=== PATIENT | male | born 1990 | race Caucasian/White ===

== ENCOUNTER 2022-08-07 20:03 | Emergency (ER) | payer OTHER, SELFPAY ==
[2022-08-07 18:42] VITALS: BP 143/67; O2SAT 95
[2022-08-07 20:33] VITALS: BP 101/69; PULSE 105; RESP 14; TEMP 37.4; O2SAT 97; BMI 27.7
--- NOTE | 2022-08-07 20:51 | ED.DIZZY1 ---
HPI - Dizziness General Chief Complaint: Extremity Problem, Nontraumatic Stated Complaint: weakness/pain Time Seen by Provider: 08/07/22 20:46 Source: patient Mode of arrival: walk-in Limitations: no limitations History of Present Illness HPI Narrative: history of RA and colchicine. States he is followed by Rheumatology In [place]. 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 States he ran 5K 4 days ago that included obstacle course. Next day whole body and joint burning pain. Feels it is a RA flare but states it is not usually so generalized. He feels weak. Went in to work today but left after a couple of hours. States when he is up and walking he starts to feel lightheaded and dizzy. No fever or nausea. No chest pain complaint admits his joints are not swollen no more than usual but they hurt Related Data Allergies Allergy/AdvReac Type Severity Reaction Status Date / Time No Known Drug Allergies Allergy Verified 08/08/22 21:22 Review of Systems ROS Status of ROS 10 or more systems reviewed and unremarkable except as noted in history and below Constitutional Reports: fatigue and malaise Musculoskeletal Reports: joint pain PFSH PFSH Social History Smoking status: Never smoker Exam Constitutional Vital Signs - 24 hr 08/07/22 20:33 Temperature 99.4 F Pulse Rate [Monitor] 105 H Respiratory Rate 14 Blood Pressure [Left Arm] 101/69 Pulse Oximetry 97 Oxygen Delivery Method Room Air Common normals: no apparent distress, average body habitus and oriented x3 HENMT Common normals: normocephalic, head/scalp atraumatic and hearing grossly normal bilaterally Eye Common normals: EOMs intact bilaterally and conjunctivae normal Respiratory Common normals: normal respiratory effort, no retractions, no use of accessory muscles and clear to auscultation bilaterally Cardio Common normals: no JVD, regular rate, regular rhythm, S1 normal heart sound and S2 normal heart sound GI Common normals: Normal to inspection, nondistended, normoactive bowel sounds present and non-tender Extremity Other: joint swelling of his hands. ulnar deviation of finger. No erythema or warmth of his joints Neuro Common normals: oriented x3, CN's II-XII intact bilaterally, moves all extremities and no focal motor deficits Psych Appearance: grossly normal Course Vital Signs Vital signs: Vital Signs Blood Pressure 143/67 H 08/07/22 18:42 Pulse Oximetry 95 08/07/22 18:42 Temperature 99.4 F 08/07/22 20:33 Pulse Rate 105 H 08/07/22 20:33 Respiratory Rate 14 08/07/22 20:33 Blood Pressure 101/72 08/08/22 00:50 Pulse Oximetry 96 08/08/22 00:40 Oxygen Delivery Method Room Air 08/07/22 20:33 MDM - Dizziness MDM Narrative Medical decision making narrative: patient seen for flare up of RA . Not his typical flare up because multiple joints were involved. His care was continued on paper charting during computer down time Lab Data Labs: Lab Results 08/07/22 08/07/22 Range/Units 21:10 21:25 WBC 6.4 (4.0-11.0) 10^3/uL RBC 4.86 (4.70-6.10) 10^6/uL Hgb 14.1 (14.0-18.0) g/dL Hct 42.9 (42.0-54.0) % MCV 88.3 (80.0-94.0) fL MCH 29.0 (25.9-34.0) pg MCHC 32.9 (29.9-35.2) g/dL RDW 14.9 (11.0-15.0) % Plt Count 265 (150-450) 10^3/uL MPV 10.0 (9.5-13.5) fL Neut % (Auto) 82.5 H (43.0-75.0) % Lymph % (Auto) 8.4 L (20.5-60.0) % [place] % (Auto) 8.3 (1.7-12.0) % Eos % (Auto) 0.3 L (0.9-7.0) % Baso % (Auto) 0.3 (0.2-2.0) % Neut # (Auto) 5.3 (1.4-6.5) 10^3/uL Lymph # (Auto) 0.5 L (1.2-3.8) 10^3/uL [place] # (Auto) 0.5 (0.3-0.8) 10^3/uL Eos # (Auto) 0.0 (0.0-0.7) 10^3/uL Baso # (Auto) 0.0 (0.0-0.1) 10^3/uL Abs Immat Gran (auto) 0.01 (0.00-0.03) 10^3/uL Imm/Tot Granulo (auto) 0.2 (0.0-0.5) % ESR 11 (<=15) mm/hr Sodium 136 (136-145) mmol/L Potassium 3.9 (3.5-5.1) mmol/L Chloride 98 (98-107) mmol/L Carbon Dioxide 27.8 (21.0-32.0) mmol/L Anion Gap 14.1 BUN 11.0 (7.0-18.0) mg/dL Creatinine 1.24 (0.70-1.30) mg/dL Est GFR ( Amer) >60 (>=60) Est GFR (Non-Af Amer) >60 (>=60) BUN/Creatinine Ratio 8.9 Glucose 104 (74-106) mg/dL Lactate 1.5 (0.4-2.0) mmol/L Calcium 9.3 (8.5-10.1) mg/dL Total Bilirubin 0.3 (0.2-1.0) mg/dL AST 45 H (15-37) U/L ALT 43 (16-63) U/L Alkaline Phosphatase 86 (46-116) U/L Myoglobin 24 (16-96) ng/mL Troponin I High Sens <4.0 L (4.0-76.1) pg/mL C-Reactive Protein <0.2 (<=1.0) mg/dL Total Protein 6.9 (6.4-8.2) g/dL Albumin 3.6 (3.4-5.0) g/dL Globulin 3.3 g/dL Albumin/Globulin Ratio 1.1 Urine Color Lt. yellow (YELLOW) Urine Clarity Clear (CLEAR) Urine pH 6.5 (5.0-9.0) Ur Specific [place] 1.010 (1.005-1.025) Urine Protein Negative (NEG/TRACE) mg/dL Urine Glucose (UA) Negative (NEGATIVE) mg/dL Urine Ketones Negative (NEGATIVE) mg/dL Urine Occult Blood Negative (NEGATIVE) Urine Nitrite Negative (NEGATIVE) Urine Bilirubin Negative (NEGATIVE) Urine Urobilinogen 0.2 (0.2-1.0) EU/dL Ur Leukocyte Esterase Negative (NEGATIVE) Discharge Plan Discharge Chief Complaint: Extremity Problem, Nontraumatic Clinical Impression: Arthralgia, Flare of rheumatoid arthritis Patient Disposition: Home, Self-Care Stand Alone Forms: Portal Instructions Referrals: LEYDI ACEVES [Primary Care Provider] - 1 week Discharge Date/Time: 08/08/22 04:00
--- NOTE | 2022-08-07 20:58 | XR_ITS ---
[address] [address] Patient Name: TRU CARDOZA MRN: [id number] date: 1990 Sex: M Assigned Patient Location: ER Current Patient Location: ED.MAIN Accession/Order Number: [id number] Exam Date: 08/07/2022 21:25 Report Date: 08/07/2022 22:05 At the request of: NAWAF RO Procedure: XR chest 1V EXAM: XR chest 1V HISTORY: Weakness COMPARISON: 06/20/2022 TECHNIQUE: Frontal view of the chest. FINDINGS: No focal consolidations or pleural effusions. Cardiomediastinal silhouette is unremarkable. Visualized osseous structures are unremarkable. IMPRESSION: No acute disease. Electronically authenticated by: SETH TABOR Date: 08/07/2022 22:05
--- NOTE | 2022-08-07 20:58 | ECG_ITS ---
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
--- NOTE | 2022-08-07 21:28 | SUR.HOLD ---
Patient has hx of RA. patient is experiencing an entire body flair up. C/O pain, weakness, and dizziness upon ambulation. patient ran a 5k a few days ago and believes that may be what started it. IV and EKG done, blood and urine collected
[2022-08-07 21:32] LABS: Bilirubin Urine NEGATIVE (NEGATIVE); Blood Urine NEGATIVE (NEGATIVE); Clarity Urine CLEAR (CLEAR); Color Urine LT. YELLOW (YELLOW); Glucose Urine UA NEGATIVE (NEGATIVE); Ketones Urine NEGATIVE (NEGATIVE); Leukocyte Esterase Urine NEGATIVE (NEGATIVE); Nitrite Urine NEGATIVE (NEGATIVE); Protein Urine NEGATIVE (NEG/TRACE); Urobilinogen Urine 0.2 EU/dL (0.2-1.0); pH Urine 6.5 (5.0-9.0)
[2022-08-07 21:32] LABS: Basophils Percent Auto 0.3 % (0.2-2.0); Eosinophils Percent Auto 0.3 % (0.9-7.0); Hematocrit 42.9 % (42.0-54.0); Hemoglobin 14.1 g/dL (14.0-18.0); Immature Granulocytes Abs Auto 0.01 10^3/uL (0.00-0.03); Immature Granulocytes Pct Auto 0.2 % (0.0-0.5); Lymphocytes Absolute Auto 0.5 10^3/uL (1.2-3.8); Lymphocytes Percent Auto 8.4 % (20.5-60.0); Mean Corpuscular HGB Conc 32.9 g/dL (29.9-35.2); Mean Corpuscular Volume 88.3 fL (80.0-94.0); Monocytes Absolute Auto 0.5 10^3/uL (0.3-0.8); Monocytes Percent Auto 8.3 % (1.7-12.0); Neutrophils Absolute Auto 5.3 10^3/uL (1.4-6.5); Neutrophils Percent Auto 82.5 % (43.0-75.0); Platelet Count 265 10^3/uL (150-450); Red Blood Count 4.86 10^6/uL (4.70-6.10); Red Cell Distribution Width 14.9 % (11.0-15.0); White Blood Count 6.4 10^3/uL (4.0-11.0)
[2022-08-07 21:40] LABS: Erythrocyte Sedimentation Rate 11 mm/hr (<=15)
[2022-08-07 21:41] LABS: Urine Microscopic Indicated NO
[2022-08-07] MEDS: 0.9 % SODIUM CHLORIDE 1,000 ML 999 ML IV (21:51)
[2022-08-07] MEDS: METHYLPREDNISOLONE SOD SUCC PF 125 MG/2 ML VIAL IVP (21:52)
[2022-08-07 21:59] LABS: Troponin I High Sensitivity <4.0 pg/mL (4.0-76.1)
[2022-08-07 22:00] LABS: Lactate/Lactic Acid 1.5 mmol/L (0.4-2.0)
[2022-08-07 22:05] LABS: Alanine Aminotransferase 43 U/L (16-63); Albumin Globulin Ratio 1.1; Albumin Level 3.6 g/dL (3.4-5.0); Alkaline Phosphatase 86 U/L (46-116); Anion Gap 14.1; Aspartate Amino Transferase 45 U/L (15-37); BUN Creatinine Ratio 8.9; Bilirubin Total 0.3 mg/dL (0.2-1.0); Calcium 9.3 mg/dL (8.5-10.1); Carbon Dioxide 27.8 mmol/L (21.0-32.0); Chloride 98 mmol/L (98-107); Estimated GFR (African America >60 (>=60); Estimated GFR (Non-African Ame >60 (>=60); Globulin 3.3 g/dL; Glucose 104 mg/dL (74-106); Myoglobin 24 ng/mL (16-96); Potassium 3.9 mmol/L (3.5-5.1); Sodium 136 mmol/L (136-145); Total Protein 6.9 g/dL (6.4-8.2)
[2022-08-07 22:07] LABS: C Reactive Protein <0.2 mg/dL (<=1.0)
[2022-08-07] MEDS: FENTANYL CITRATE/PF 100 MCG/2 ML VIAL 50 MCG IV (22:35)
--- NOTE | 2022-08-07 23:17 | PC.NURSE ---
Patient stated the fentenyl has not helped pain but increased headache. notified adela dalton for toradol given
[2022-08-07] MEDS: KETOROLAC TROMETHAMINE 30 MG/ML VIAL IVP (23:40)
[2022-08-08 00:40] VITALS: O2SAT 96
[2022-08-08 00:41] VITALS: BP 114/63
[2022-08-08 00:47] VITALS: BP 118/76
[2022-08-08 00:48] VITALS: BP 102/79
[2022-08-08 00:49] VITALS: BP 102/75
[2022-08-08 00:50] VITALS: BP 101/72
[2022-08-08] MEDS: 0.9 % SODIUM CHLORIDE 1,000 ML 1000 ML IV (01:35)
== END 2022-08-08 04:00 | disposition home or self-care (01) ==
PROVIDERS: Emergency Provider Internal Medicine; PCP Family Medicine
DX: M25.50 Pain in unspecified joint (principal); M06.9 Rheumatoid arthritis, unspecified; Z79.899 Other long term (current) drug therapy
CPT/HCPCS: 36415; 71045; 80053; 81003; 83605; 83874; 84484; 85025; 85652; 86140; 93005; 96374; 96375; 99285; J2930

== ENCOUNTER 2022-08-08 20:41 | Emergency (ER) | payer OTHER, SELFPAY ==
[2022-08-08 21:13] VITALS: BP 132/79; RESP 16; TEMP 37.2; O2SAT 98
--- NOTE | 2022-08-08 23:10 | ED.WEAKNESS1 ---
HPI - Weakness General Chief complaint: Weakness Stated complaint: WEAKNESS Time Seen by Provider: 08/08/22 20:49 Source: patient Mode of arrival: walk-in History of Present Illness HPI Narrative: the patient was just evaluated this morning with the symptoms of generalized body ache. History of rheumatoid arthritis and he presented to us after he has been having generalized body throbbing and just ran a 5K almost 3 days ago he denies any nausea vomiting or any abdominal pain or any joint pain specifically but he mentioned that he was feeling better after he was discharged this morning and when he went home he was playing with his daughter and and apparently started getting dizzy only incidentally the patient denies any other complaints other than that mentioned in the history of present illness Related Data Allergies Allergy/AdvReac Type Severity Reaction Status Date / Time No Known Drug Allergies Allergy Verified 08/08/22 21:22 Review of Systems ROS Status of ROS 10 or more systems reviewed and unremarkable except as noted in history and below PFSH PFS Social History Smoking status: Never smoker Exam Narrative Exam Narrative: Nurses notes and vital signs reviewed and patient is not hypoxic. General: Well-appearing and in no apparent distress. Skin: Warm, dry, no pallor noted. No rash. Head: Normocephalic, atraumatic. Neck: Supple, non-tender. Eye: Pupils are equal, round and EOMI. No scleral icterus. Ears, Nose, Mouth, and Throat: TM are clear, no nasal mucosal hypertrophy. Oral mucosa is moist, no posterior oropharynx erythema, uvula is mid-line Cardiovascular: Regular Rate and Rhythm without murmur, gallop or rub. Respiratory: No accessory muscle use or respiratory distress. Lungs are clear to auscultation, no wheezing, rales or rhonchi Chest Wall: no tenderness Back: No midline thoracic or lumbar vertebral tenderness. No CVA tenderness Musculoskeletal: normal ROM, no calf or popliteal tenderness, no lower extremity edema/swelling patient does have lipomas in his upper and lower extremities mostly at the knee and the elbow level with no redness no hotness no signs of acute infection GI: Abdomen is soft, non-distended. Normal bowel sounds. No masses appreciated. No tenderness to palpation. No rebound, guarding, or rigidity noted. Neurological: A&O x4. No cranial nerve dysfunction observed. No truncal ataxia. Moves all extremities. Sensation intact. Psychiatric: Cooperative and interactive. Normal mood and affect. Constitutional Vital Signs - 24 hr 08/08/22 21:13 Temperature 98.9 F Respiratory Rate 16 Blood Pressure [Left Arm] 132/79 H Pulse Oximetry 98 Oxygen Delivery Method Room Air Course Vital Signs Vital signs: Vital Signs Temperature 98.9 F 08/08/22 21:13 Respiratory Rate 16 08/08/22 21:13 Blood Pressure 132/79 H 08/08/22 21:13 Pulse Oximetry 98 08/08/22 21:13 Oxygen Delivery Method Room Air 08/08/22 21:13 Temperature 98.9 F 08/08/22 21:13 Respiratory Rate 16 08/08/22 21:13 Blood Pressure 132/79 H 08/08/22 21:13 Pulse Oximetry 98 08/08/22 21:13 Oxygen Delivery Method Room Air 08/08/22 21:13 MDM - Weakness MDM Narrative Medical decision making narrative: the patient blood work from yesterday was reviewed he did receive some IV fluid before getting discharge yesterday and the patient today's coming with no specific symptoms is complaining of this body throbbing and dizziness that comes only when he was exerting himself and trying to be intimate with his . The patient also he is claiming history of rheumatoid arthritis he does not take any rheumatoid arthritis medication The patient asked about morphine if I was going to give him morphine and i told him that right now is not indicated but I will do the blood work up and make sure there is no other reason for him to have the symptoms the patient then cold that nurse taking care of him and he decided to leave AGAINST MEDICAL ADVICE Discharge Plan Discharge Chief Complaint: Weakness Clinical Impression: Drug-seeking behavior Patient Disposition: Left Against Medical Advice Mode of Transportation: Private Vehicle Stand Alone Forms: Portal Instructions Referrals: LEYDI ACEVES [Primary Care Provider] - 1 week Discharge Date/Time: 08/09/22 00:30
== END 2022-08-09 00:30 | disposition left against medical advice (07) ==
LOC: ER 21:45
PROVIDERS: Emergency Provider Emergency Medicine; PCP Family Medicine
DX: Z76.5 Malingerer [conscious simulation] (principal)
CPT/HCPCS: 80048; 82550; 82553; 83735; 83874; 84100; 84484; 85025; 85652; 86140; 99284

== ENCOUNTER 2022-08-31 15:10 | Emergency (ER) | payer OTHER, SELFPAY ==
[2022-08-31 15:23] VITALS: BP 91/67; PULSE 80; RESP 18; TEMP 37.1; O2SAT 99; BMI 27.6
--- NOTE | 2022-08-31 16:34 | ED_ITS ---
HPI - Extremity Problem General Chief complaint: Extremity Problem, Nontraumatic Stated complaint: ARTHRITIS FLAIRUP Time Seen by Provider: 08/31/22 15:26 Source: patient Mode of arrival: walk-in Limitations: no limitations History of Present Illness HPI Narrative: this patient's here with multiple joints becoming achy and sore and inflamed. He has a history of both gout and rheumatoid arthritis. He is on uricosuric medications. He does not have any pain in his ankles her great toes. 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 He is under the care of the rheumatology doctor in [facility]. He also sees a primary care doctor. He gets monthly uric acid levels. He's notany actually fever but he just feels lousy like he is getting a flareup of his RA. He was just recently about 5-6 weeks ago switched on an oral, once a week biologic for his rheumatoid arthritis but does not know what it is. Related Data Home Medications Medication Instructions Recorded Confirmed allopurinol 300 mg tablet 600 mg PO DAILY 08/31/22 08/31/22 alprazolam 0.5 mg tablet 0.5 mg PO BID 08/31/22 08/31/22 amlodipine 10 mg tablet 10 mg PO BID 08/31/22 08/31/22 carvedilol 6.25 mg tablet 6.25 mg PO DAILY 08/31/22 08/31/22 celecoxib 100 mg capsule 100 mg PO DAILY 08/31/22 08/31/22 clonidine HCl 0.1 mg tablet 0.1 mg PO BID 08/31/22 08/31/22 colchicine 0.6 mg tablet 0.6 mg PO .every other 08/31/22 08/31/22 escitalopram oxalate 5 mg tablet 5 mg PO DAILY 08/31/22 08/31/22 gabapentin 100 mg capsule 100 mg PO .q8 08/31/22 08/31/22 oxycodone-acetaminophen 5 mg-325 1 tab PO Q6H PRN pain 08/31/22 08/31/22 mg tablet quetiapine 50 mg tablet 50 mg PO .hs 08/31/22 08/31/22 tramadol 50 mg tablet 50 mg PO Q6H PRN pain 08/31/22 08/31/22 Allergies Allergy/AdvReac Type Severity Reaction Status Date / Time No Known Drug Allergies Allergy Verified 08/08/22 21:22 PFSH PFS Social History Smoking status: Never smoker Exam Narrative Exam Narrative: well-hydrated well-nourished appears uncomfortable vital signs show blood pressure 91/67 otherwise does not appear acutely ill. HEENT there is no scleral icterus or pallor or conjunctivitis. Neck is soft and supple with no lateralizing neurological findings or symptoms. Respirations lungs are clear no wheezes rales or rhonchi Heart rate and rhythm are normal. Extremity examination shows nodules in the elbow area but no acute warmth or erythema or evidence of cellulitis over any of the joints upper or lower extremities. Constitutional Vital Signs - 24 hr 08/31/22 15:23 Temperature 98.8 F Pulse Rate [Monitor] 80 Respiratory Rate 18 Blood Pressure [Right Arm] 91/67 Pulse Oximetry 99 Oxygen Delivery Method Room Air Course Vital Signs Vital signs: Vital Signs Temperature 98.8 F 08/31/22 15:23 Pulse Rate 80 08/31/22 15:23 Respiratory Rate 18 08/31/22 15:23 Blood Pressure 91/67 08/31/22 15:23 Pulse Oximetry 99 08/31/22 15:23 Oxygen Delivery Method Room Air 08/31/22 15:23 Temperature 98.8 F 08/31/22 15:23 Pulse Rate 80 08/31/22 15:23 Respiratory Rate 18 08/31/22 15:23 Blood Pressure 91/67 08/31/22 15:23 Pulse Oximetry 99 08/31/22 15:23 Oxygen Delivery Method Room Air 08/31/22 15:23 MDM - Extremity (Nontraumatic) MDM Narrative Medical decision making narrative: patient presents with polyarthralgia with no objective findings of infection, warmth or trauma. 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 Discharge Plan Discharge Chief Complaint: Extremity Problem, Nontraumatic Clinical Impression: Polyarthralgia Patient Disposition: Home, Self-Care Time of Disposition Decision: 17:19 Prescriptions / Home Meds: No Action tramadol 50 mg tablet 50 mg PO Q6H PRN (Reason: pain) quetiapine 50 mg tablet 50 mg PO .hs oxycodone-acetaminophen 5-325 mg tablet 1 tab PO Q6H PRN (Reason: pain) gabapentin 100 mg capsule 100 mg PO .q8 escitalopram oxalate 5 mg tablet 5 mg PO DAILY colchicine 0.6 mg tablet 0.6 mg PO .every other clonidine HCl 0.1 mg tablet 0.1 mg PO BID celecoxib 100 mg capsule 100 mg PO DAILY carvedilol 6.25 mg tablet 6.25 mg PO DAILY amlodipine 10 mg tablet 10 mg PO BID alprazolam 0.5 mg tablet 0.5 mg PO BID allopurinol 300 mg tablet 600 mg PO DAILY Additional Instructions: prednisone burst for ten days Stand Alone Forms: Portal Instructions Referrals: LEYDI ACEVES [Primary Care Provider] - 1 week
[2022-08-31] MEDS: MORPHINE SULFATE 2 MG/ML SYRINGE IV ×2 (17:03→18:14)
[2022-08-31] MEDS: METHYLPREDNISOLONE SOD SUCC PF 125 MG/2 ML VIAL IVP (17:03)
[2022-08-31] MEDS: 0.9 % SODIUM CHLORIDE 1,000 ML 999 ML IV (17:04)
[2022-08-31 17:21] LABS: Basophils Percent Auto 0.3 % (0.2-2.0); Eosinophils Percent Auto 0.3 % (0.9-7.0); Hematocrit 43.3 % (42.0-54.0); Hemoglobin 14.7 g/dL (14.0-18.0); Immature Granulocytes Abs Auto 0.02 10^3/uL (0.00-0.03); Immature Granulocytes Pct Auto 0.3 % (0.0-0.5); Lymphocytes Percent Auto 25.3 % (20.5-60.0); Mean Corpuscular HGB Conc 33.9 g/dL (29.9-35.2); Mean Corpuscular Hemoglobin 29.3 pg (25.9-34.0); Mean Corpuscular Volume 86.4 fL (80.0-94.0); Mean Platelet Volume 10.4 fL (9.5-13.5); Monocytes Absolute Auto 0.4 10^3/uL (0.3-0.8); Monocytes Percent Auto 4.8 % (1.7-12.0); Neutrophils Absolute Auto 5.4 10^3/uL (1.4-6.5); Platelet Count 273 10^3/uL (150-450); Red Blood Count 5.01 10^6/uL (4.70-6.10); White Blood Count 7.7 10^3/uL (4.0-11.0)
[2022-08-31 17:33] LABS: C Reactive Protein <0.2 mg/dL (<=1.0)
[2022-08-31 18:15] VITALS: BP 116/70; PULSE 57; RESP 16; TEMP 37; O2SAT 99
== END 2022-08-31 18:23 | disposition home or self-care (01) ==
PROVIDERS: Emergency Provider Emergency Medicine Emergency Medical Services; PCP Family Medicine
DX: M25.50 Pain in unspecified joint (principal); M06.9 Rheumatoid arthritis, unspecified; Z79.899 Other long term (current) drug therapy
CPT/HCPCS: 36415; 85025; 86140; 96374; 96375; 96376; 99284; J2930

== ENCOUNTER 2022-09-28 12:50 | Emergency (ER) | payer OTHER, SELFPAY ==
[2022-09-28 12:57] VITALS: BP 160/104; PULSE 101; RESP 20; TEMP 36.8; O2SAT 99; BMI 27.0
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
--- NOTE | 2022-09-28 13:31 | ECG_ITS ---
[facility] Test Date: 2022-09-28 Pat Name: TRU CARDOZA Department: Room: - Gender: Male [employer]: : 1990 Requested By: LEYDI ACEVES Order Number: [id number] Reading MD: LO JIMENEZ Measurements Intervals [place] Rate: 82 P: 63 NM: 154 QRS: 63 QRSD: 96 T: 34 QT: 360 QTc: 399 Interpretive Statements 1100 Sinus rhythm [address] elevation [address] & [place] abnormality 9130 borderline ECG Compared to ECG 08/07/2022 21:14:46 ST (T wave) deviation now present Electronically Signed On 09-29-2022 5:18:45 EDT by LO JIMENEZ
--- NOTE | 2022-09-28 13:31 | XR_ITS ---
The [address] [address] Patient Name: TRU CARDOZA MRN: [id number] date: 1990 Sex: M Assigned Patient Location: ER Current Patient Location: ER Accession/Order Number: [id number] Exam Date: 09/28/2022 14:00 Report Date: 09/28/2022 14:14 At the request of: KIRT ZAMBRANO Procedure: XR chest 1V EXAM: XR chest 1V HISTORY: Shortness of breath COMPARISON: None. TECHNIQUE: AP view of the chest. FINDINGS: The cardiomediastinal silhouette is normal. The lungs are clear. There is no pneumothorax. No pleural effusion is noted. The osseous structures are intact. XR/XR chest 1V IMPRESSION: No acute cardiopulmonary process. Electronically authenticated by: TORRES DE OLIVEIRA Date: 09/28/2022 14:14
--- NOTE | 2022-09-28 13:32 | CT_ITS ---
[address] [address] Patient Name: TRU CARDOZA MRN: [id number] date: 1990 Sex: M Assigned Patient Location: ER Current Patient Location: Accession/Order Number: [id number] Exam Date: 09/28/2022 14:00 Report Date: 09/28/2022 14:23 At the request of: KIRT ZAMBRANO Procedure: CT head/brain wo con EXAM: CT head/brain wo con CLINICAL INDICATION: Headache COMPARISON: CT head and CTA head/neck 09/27/2021. TECHNIQUE: Axial CT images of the brain were obtained without contrast. Coronal and sagittal reformats were obtained. Dose reduction techniques were achieved by using automated exposure control and/or adjustment of mA and/or kV according to patient size and/or use of iterative reconstruction technique. FINDINGS: No intracranial hemorrhage, extra-axial fluid collection, hydrocephalus, midline shift, or acute infarction. No other mass effect. Patent basal cisterns. No calvarial fracture. Normal soft tissues. Trace scattered paranasal sinus mucosal thickening. Mastoid air cells are well-aerated. CT/CT head/brain wo con IMPRESSION: No acute intracranial process. No substantial change since 09/27/2021. Electronically authenticated by: LINN FORD Date: 09/28/2022 14:23
[2022-09-28 14:10] LABS: Basophils Percent Auto 0.5 % (0.2-2.0); Eosinophils Absolute Auto 0.1 10^3/uL (0.0-0.7); Eosinophils Percent Auto 0.9 % (0.9-7.0); Hematocrit 38.2 % (42.0-54.0); Hemoglobin 12.6 g/dL (14.0-18.0); Immature Granulocytes Abs Auto 0.01 10^3/uL (0.00-0.03); Immature Granulocytes Pct Auto 0.2 % (0.0-0.5); Lymphocytes Absolute Auto 1.8 10^3/uL (1.2-3.8); Lymphocytes Percent Auto 31.5 % (20.5-60.0); Mean Corpuscular Hemoglobin 29.2 pg (25.9-34.0); Mean Corpuscular Volume 88.4 fL (80.0-94.0); Mean Platelet Volume 10.7 fL (9.5-13.5); Monocytes Absolute Auto 0.4 10^3/uL (0.3-0.8); Monocytes Percent Auto 6.6 % (1.7-12.0); Neutrophils Absolute Auto 3.5 10^3/uL (1.4-6.5); Neutrophils Percent Auto 60.3 % (43.0-75.0); Platelet Count 308 10^3/uL (150-450); Red Blood Count 4.32 10^6/uL (4.70-6.10); Red Cell Distribution Width 14.4 % (11.0-15.0); White Blood Count 5.8 10^3/uL (4.0-11.0)
[2022-09-28 14:15] LABS: Alanine Aminotransferase 28 U/L (16-63); Albumin Globulin Ratio 1.2; Albumin Level 3.6 g/dL (3.4-5.0); Alkaline Phosphatase 79 U/L (46-116); Anion Gap 11.2; Aspartate Amino Transferase 19 U/L (15-37); Bilirubin Total 0.3 mg/dL (0.2-1.0); Calcium 8.9 mg/dL (8.5-10.1); Carbon Dioxide 24.6 mmol/L (21.0-32.0); Chloride 107 mmol/L (98-107); Estimated GFR (African America >60 (>=60); Estimated GFR (Non-African Ame >60 (>=60); Glucose 84 mg/dL (74-106); Potassium 3.8 mmol/L (3.5-5.1); Sodium 139 mmol/L (136-145); Total Protein 6.6 g/dL (6.4-8.2)
[2022-09-28] MEDS: 0.9 % SODIUM CHLORIDE 1,000 ML 999 ML IV (14:27)
[2022-09-28] MEDS: ORPHENADRINE 60 MG/ 2 ML VIAL IV (14:28)
[2022-09-28] MEDS: DIPHENHYDRAMINE HCL 50 MG/ML (1ML) VIAL 25 MG IV (14:28)
[2022-09-28] MEDS: KETOROLAC TROMETHAMINE 30 MG/ML VIAL IVP (14:28)
[2022-09-28] MEDS: METOCLOPRAMIDE HCL 10 MG/2 ML VIAL INJ (14:28)
[2022-09-28 14:36] LABS: Creatine Kinase 167 U/L (39-308); Creatine Kinase MB 1.36 ng/mL (<=3.60); Myoglobin 98 ng/mL (16-96)
[2022-09-28 15:19] VITALS: BP 124/73; PULSE 83; RESP 18; O2SAT 95
== END 2022-09-28 15:21 | disposition home or self-care (01) ==
PROVIDERS: Physician Assistant; Emergency Provider Emergency Medicine; PCP Family Medicine
DX: R51.9 Headache, unspecified (principal); R06.02 Shortness of breath; Z79.899 Other long term (current) drug therapy
CPT/HCPCS: 36415; 70450; 71045; 80053; 82550; 82553; 83874; 84484; 85025; 93005; 94640; 96372; 96374; 96375; 99285

== ENCOUNTER 2022-10-28 16:52 | Emergency (ER) | payer OTHER, SELFPAY ==
[2022-10-28 17:00] VITALS: BP 131/97; PULSE 99; RESP 16; TEMP 36.7; O2SAT 100; BMI 27.5
--- NOTE | 2022-10-28 19:25 | ED.UPPEXIN1 ---
HPI - Extremity Injury (Upper) General Chief Complaint: Extremity Injury, Upper Stated Complaint: UPPER EXTREMITY PAIN Time Seen by Provider: 10/28/22 17:16 Source: patient Mode of arrival: walk-in History of Present Illness HPI narrative: Patient presents to emergency department complaining of right middle finger pain. Patient states he has a history of arthritis and his right middle finger started to swell earlier today and the distal interphalangeal joint. It is very painful and it hurts when he tries to move it. Most of the swelling is in the dorsum of the finger. He denies any trauma. He denies any fever, chills. He states he has pain with palpation and range of motion. Pain also radiates to the ulnar aspect of the wrist.He denies any paresthesias, or weakness. He states he has Percocet at home which he took one earlier without any relief. Patient states when this occurs he gets a steroid injection, And an analgesic injection. Related Data Home Medications Medication Instructions Recorded Confirmed allopurinol 300 mg tablet 600 mg PO DAILY 08/31/22 08/31/22 alprazolam 0.5 mg tablet 0.5 mg PO BID 08/31/22 08/31/22 amlodipine 10 mg tablet 10 mg PO BID 08/31/22 08/31/22 carvedilol 6.25 mg tablet 6.25 mg PO DAILY 08/31/22 08/31/22 celecoxib 100 mg capsule 100 mg PO DAILY 08/31/22 08/31/22 clonidine HCl 0.1 mg tablet 0.1 mg PO BID 08/31/22 08/31/22 colchicine (gout) 0.6 mg tablet 0.6 mg PO .every other 08/31/22 08/31/22 escitalopram oxalate 5 mg tablet 5 mg PO DAILY 08/31/22 08/31/22 gabapentin 100 mg capsule 100 mg PO .q8 08/31/22 08/31/22 oxycodone-acetaminophen 5 mg-325 1 tab PO Q6H PRN pain 08/31/22 08/31/22 mg tablet quetiapine 50 mg tablet 50 mg PO .hs 08/31/22 08/31/22 tramadol 50 mg tablet 50 mg PO Q6H PRN pain 08/31/22 08/31/22 Previous Rx's Medication Instructions Recorded methocarbamol 750 mg tablet 750 mg PO TID PRN pain #20 tabs 09/28/22 metoclopramide HCl 10 mg tablet 10 mg PO Q6H PRN nausea and 09/28/22 (Reglan) vomiting #12 tabs prednisone 50 mg tablet 50 mg PO DAILY #5 tabs 10/28/22 Allergies Allergy/AdvReac Type Severity Reaction Status Date / Time No Known Drug Allergies Allergy Verified 08/08/22 21:22 Review of Systems ROS Status of ROS 10 or more systems reviewed and unremarkable except as noted in history and below [facility] Social History Smoking status: Never smoker Exam Narrative Exam Narrative: Nurses notes and vital signs reviewed and patient is not hypoxic. General: Nontoxic, Well-appearing and in no apparent distress. Skin: Warm, dry, no pallor noted. No Rash Head: Normocephalic, atraumatic. Neck: Supple, non-tender. Eye: Pupils are equal, round and EOMI. No scleral icterus. Ears, Nose, Mouth, and Throat: Oral mucosa is moist Cardiovascular: Regular Rate and Rhythm without murmur, gallop or rub. Respiratory: No accessory muscle use or respiratory distress. Lungs are clear to auscultation, no wheezing, rales or rhonchi Chest Wall: no tenderness Back: No midline thoracic or lumbar vertebral tenderness. No CVA tenderness Musculoskeletal: Edema and erythema to the dorsum distal interphalangeal joint right middle finger. There is no proximal streaking. There is tenderness to palpation. There is no fluctuance. Negative [place] signs. There is no pain with passive range of motion. She was able to flex to a postal fingers with thumb. Normal sensation to the distal middle finger, thumb, and pinky. This does circumferential. There is no ecchymosis noted.normal ROM, no calf or popliteal tenderness, no lower extremity edema/swelling GI: Abdomen is soft, non-distended. Normal bowel sounds. No masses appreciated. No tenderness to palpation. No rebound, guarding, or rigidity noted. Neurological: A&O x4. No cranial nerve dysfunction observed. No truncal ataxia. Moves all extremities. Sensation intact. Psychiatric: Cooperative and interactive. Normal mood and affect. Constitutional Vital Signs, click to edit/add: Last Vital Signs Temp 98.1 F 10/28/22 17:00 Pulse 99 H 10/28/22 17:00 Resp 16 10/28/22 17:00 BP 131/97 H 10/28/22 17:00 Pulse Ox 100 10/28/22 17:00 O2 Del Method Room Air 10/28/22 17:00 Course Vital Signs Vital signs: Vital Signs Temperature 98.1 F 10/28/22 17:00 Pulse Rate 99 H 10/28/22 17:00 Respiratory Rate 16 10/28/22 17:00 Blood Pressure 131/97 H 10/28/22 17:00 Pulse Oximetry 100 10/28/22 17:00 Oxygen Delivery Method Room Air 10/28/22 17:00 Temperature 98.1 F 10/28/22 17:00 Pulse Rate 99 H 10/28/22 17:00 Respiratory Rate 16 10/28/22 17:00 Blood Pressure 131/97 H 10/28/22 17:00 Pulse Oximetry 100 10/28/22 17:00 Oxygen Delivery Method Room Air 10/28/22 17:00 MDM - Extremity Injury (Upper) MDM Narrative Medical decision making narrative: Discussed with this patient the need to obtain some lab work and x-ray. He states he has had this for many years and he knows exactly what this feels like. He is requesting that is G6, and steroids. Discussed the patient the risk of infection, tenosynovitis, abscess or other pathology the weakness without that testing. He states he understands however he is adamant that he's had this many times in(not want any x-rays or any blood tests at this time. I discussed with the patient To provide him with some prednisone as he did not require steroid injection. To provide him with an analgesic and he is to see if there is improvement. If he does not notice any improvement by tomorrow then he is to return to the emergency department because he could have or sore pathology that could cause him to have sepsis, loss of limb, permanent disability, and . He understands.She still is refusing to have testing done. Worse was checked. The patient was not very forthcoming about taking tramadol. He states he doesn't take it because it doesn't always work. He initially stated that he only needs it for when there is a severe exacerbation that I asked him why he has not taking his since this is a severe exacerbation of his arthritis. He states that it just doesn't work for him. [facility] showed that the patient has obtained 240 tablets of tramadol monthly. I answered all questions. Discussed discharge instructions including standard anticipatory guidance and what should prompt a return to the emergency department, including if they get worse are not getting better or develops any new or concerning symptoms. I've given them specific time frame in which to follow-up, and who to follow-up with. The patient demonstrates understanding. Patient is nontoxic and stable for discharge with outpatient follow-up. This note was created with the assistance of a speech recognition program. Although the intention is to generate documents that actually reflects the content of the visit, no guarantees can be provided that every mistake has been identified and corrected by editing. Medical Records Attestation: I reviewed the patient's medical records. Lab Data Attestation: I reviewed the patient's lab results. Discharge Plan Discharge Chief Complaint: Extremity Injury, Upper Clinical Impression: Arthralgia, Flare of rheumatoid arthritis Patient Disposition: Home, Self-Care Time of Disposition Decision: 20:26 Condition: Good Mode of Transportation: Private Vehicle Prescriptions / Home Meds: New prednisone 50 mg tablet 50 mg PO DAILY Qty: 5 0RF No Action tramadol 50 mg tablet 50 mg PO Q6H PRN (Reason: pain) quetiapine 50 mg tablet 50 mg PO .hs oxycodone-acetaminophen 5-325 mg tablet 1 tab PO Q6H PRN (Reason: pain) gabapentin 100 mg capsule 100 mg PO .q8 escitalopram oxalate 5 mg tablet 5 mg PO DAILY colchicine (gout) 0.6 mg tablet 0.6 mg PO .every other clonidine HCl 0.1 mg tablet 0.1 mg PO BID celecoxib 100 mg capsule 100 mg PO DAILY carvedilol 6.25 mg tablet 6.25 mg PO DAILY amlodipine 10 mg tablet 10 mg PO BID alprazolam 0.5 mg tablet 0.5 mg PO BID allopurinol 300 mg tablet 600 mg PO DAILY methocarbamol 750 mg tablet 750 mg PO TID PRN (Reason: pain) Qty: 20 0RF metoclopramide HCl [Reglan] 10 mg tablet 10 mg PO Q6H PRN (Reason: nausea and vomiting) Qty: 12 0RF Rx Instructions: Can be taken for headache; take with benadryl Instructions: Arthralgia (ED) Stand Alone Forms: Portal Instructions Referrals: LEYDI ACEVES [Primary Care Provider] - 1 week Discharge Date/Time: 10/28/22 21:03
[2022-10-28] MEDS: MORPHINE SULFATE 4 MG/ML VIAL IM (20:35)
[2022-10-28] MEDS: KETOROLAC TROMETHAMINE 60 MG/2 ML VIAL IM (20:36)
[2022-10-28] MEDS: PREDNISONE 20 MG TABLET 60 MG PO (20:37)
== END 2022-10-28 21:03 | disposition home or self-care (01) ==
PROVIDERS: Emergency Provider Emergency Medicine; PCP Family Medicine
DX: M06.9 Rheumatoid arthritis, unspecified (principal); Z79.899 Other long term (current) drug therapy; M25.541 Pain in joints of right hand
CPT/HCPCS: 99284

== ENCOUNTER 2022-12-02 18:15 | Emergency (ER) | payer OTHER, SELFPAY ==
[2022-12-02 18:22] VITALS: BP 111/74; PULSE 88; RESP 16; TEMP 36.8; O2SAT 93; BMI 38.4
[2022-12-02 18:26] VITALS: PULSE 93
--- NOTE | 2022-12-02 18:30 | ECG_ITS ---
[facility] Test Date: 2022-12-02 Pat Name: TRU CARDOZA Department: Room: - Gender: Male Director Of Medical Staff Services: : 1990 Requested By: LEYDI ACEVES Order Number: [id number] Reading MD: IRA RICE Measurements Intervals [place] Rate: 93 P: -60 MS: 150 QRS: -47 QRSD: 88 T: -52 QT: 346 QTc: 397 Interpretive Statements 1220 Rapid atrial rhythm 3634 Inferior myocardial infarction, age undetermined 9150 abnormal ECG Compared to ECG 09/28/2022 13:45:22 Myocardial infarct finding now present Sinus rhythm no longer present ST (T wave) deviation no longer present Electronically Signed On 12-03-2022 7:04:05 EDT by IRA RICE
--- NOTE | 2022-12-02 18:30 | ED.GENADUL1 ---
HPI - General Adult General Chief complaint: Weakness Stated complaint: General Weakness Time Seen by Provider: 12/02/22 18:23 Source: patient Mode of arrival: walk-in Limitations: no limitations History of Present Illness HPI narrative: 32-year-old male presents for weakness. It began today. He states he's been weak today and hasn't been drinking as much water as he normally would. He hasn't eaten today. He had a fever or vomiting or diarrhea. He doesn't complain of chest pain or cough or shortness of breath or abdominal pain. No dysuria or hematuria. He has a history of rheumatoid arthritis and is not on any steroids and hasn't been on any recently. He feels dizzy when he walks. Related Data Home Medications Medication Instructions Recorded Confirmed allopurinol 300 mg tablet 600 mg PO DAILY 08/31/22 12/02/22 alprazolam 0.5 mg tablet 0.5 mg PO BID 08/31/22 12/02/22 amlodipine 10 mg tablet 10 mg PO BID 08/31/22 12/02/22 carvedilol 6.25 mg tablet 6.25 mg PO DAILY 08/31/22 12/02/22 celecoxib 100 mg capsule 100 mg PO DAILY 08/31/22 12/02/22 clonidine HCl 0.1 mg tablet 0.1 mg PO BID 08/31/22 12/02/22 colchicine (gout) 0.6 mg tablet 0.6 mg PO .every other 08/31/22 12/02/22 escitalopram oxalate 5 mg tablet 5 mg PO DAILY 08/31/22 12/02/22 gabapentin 100 mg capsule 100 mg PO .q8 08/31/22 12/02/22 oxycodone-acetaminophen 5 mg-325 1 tab PO Q12H PRN pain 08/31/22 12/02/22 mg tablet quetiapine 50 mg tablet 50 mg PO .hs 08/31/22 12/02/22 tramadol 50 mg tablet 50 mg PO Q6H PRN pain 08/31/22 12/02/22 Allergies Allergy/AdvReac Type Severity Reaction Status Date / Time No Known Drug Allergies Allergy Verified 12/02/22 18:28 Review of Systems ROS Narrative A ten point review of systems is negative except as noted above. PFSH PFSH Social History Smoking status: Never smoker Exam Narrative Exam Narrative: Nurses note and vital signs reviewed and patient is not hypoxic. General: The patient appears well and in no apparent distress. Patient is resting comfortably on cart. Skin: Warm, dry, no pallor noted. There is no rash noted. Head: Normocephalic, atraumatic Eye: Normal conjunctiva, no drainage Ears, Nose, Mouth, and Throat: oral mucosa is moist. Nares patent. Cardiovascular: Regular Rate and Rhythm Respiratory: Patient is in no distress, no accessory muscle use, lungs are clear to auscultation, no wheezing, rales or rhonchi Back: non-tender GI: soft and nontender Musculoskeletal: The patient has no evidence of calf tenderness, no pitting edema, symmetrical pulses noted bilaterally Neurological: A&O, normal speech Psychiatric: Cooperative Constitutional Vital Signs, click to edit/add: Last Vital Signs Temp 98.2 F 12/02/22 18:22 Pulse 88 12/02/22 18:22 Resp 16 12/02/22 18:22 BP 111/74 12/02/22 18:22 Pulse Ox 93 L 12/02/22 18:22 O2 Del Method Room Air 12/02/22 18:22 Course Vital Signs Vital signs: Vital Signs Temperature 98.2 F 12/02/22 18:22 Pulse Rate 88 12/02/22 18:22 Respiratory Rate 16 12/02/22 18:22 Blood Pressure 111/74 12/02/22 18:22 Pulse Oximetry 93 L 12/02/22 18:22 Oxygen Delivery Method Room Air 12/02/22 18:22 Temperature 98.2 F 12/02/22 18:22 Pulse Rate 88 12/02/22 18:22 Respiratory Rate 16 12/02/22 18:22 Blood Pressure 111/74 12/02/22 18:22 Pulse Oximetry 93 L 12/02/22 18:22 Oxygen Delivery Method Room Air 12/02/22 18:22 Medical Decision Making MDM Narrative Medical decision making narrative: tests are ordered as well as IV fluids and the patient is signed out to Dr. Lawton. Differential Diagnosis Differential Diagnosis: dehydration, anemia, electrolytes imbalance, viral illness Discharge Plan Discharge Chief Complaint: Weakness Clinical Impression: Weakness Patient Disposition: Still a Patient Prescriptions / Home Meds: No Action tramadol 50 mg tablet 50 mg PO Q6H PRN (Reason: pain) quetiapine 50 mg tablet 50 mg PO .hs oxycodone-acetaminophen 5-325 mg tablet 1 tab PO Q6H PRN (Reason: pain) gabapentin 100 mg capsule 100 mg PO .q8 escitalopram oxalate 5 mg tablet 5 mg PO DAILY colchicine (gout) 0.6 mg tablet 0.6 mg PO .every other clonidine HCl 0.1 mg tablet 0.1 mg PO BID celecoxib 100 mg capsule 100 mg PO DAILY carvedilol 6.25 mg tablet 6.25 mg PO DAILY amlodipine 10 mg tablet 10 mg PO BID alprazolam 0.5 mg tablet 0.5 mg PO BID allopurinol 300 mg tablet 600 mg PO DAILY methocarbamol 750 mg tablet 750 mg PO TID PRN (Reason: pain) Qty: 20 0RF metoclopramide HCl [Reglan] 10 mg tablet 10 mg PO Q6H PRN (Reason: nausea and vomiting) Qty: 12 0RF Rx Instructions: Can be taken for headache; take with benadryl prednisone 50 mg tablet 50 mg PO DAILY Qty: 5 0RF Referrals: LEYDI ACEVES [Primary Care Provider] - 1 week
--- NOTE | 2022-12-02 18:47 | PC.NURSE ---
C/O arthritis pain, mostly in knee's
[2022-12-02 18:48] VITALS: O2SAT 93
[2022-12-02 18:48] LABS: Basophils Percent Auto 0.6 % (0.2-2.0); Eosinophils Percent Auto 0.2 % (0.9-7.0); Hemoglobin 15.2 g/dL (14.0-18.0); Immature Granulocytes Abs Auto 0.01 10^3/uL (0.00-0.03); Immature Granulocytes Pct Auto 0.2 % (0.0-0.5); Lymphocytes Absolute Auto 2.4 10^3/uL (1.2-3.8); Lymphocytes Percent Auto 45.3 % (20.5-60.0); Mean Corpuscular HGB Conc 34.5 g/dL (29.9-35.2); Mean Platelet Volume 10.1 fL (9.5-13.5); Monocytes Absolute Auto 0.2 10^3/uL (0.3-0.8); Monocytes Percent Auto 4.4 % (1.7-12.0); Neutrophils Absolute Auto 2.6 10^3/uL (1.4-6.5); Neutrophils Percent Auto 49.3 % (43.0-75.0); Platelet Count 308 10^3/uL (150-450); Red Blood Count 5.06 10^6/uL (4.70-6.10); Red Cell Distribution Width 14.3 % (11.0-15.0); White Blood Count 5.2 10^3/uL (4.0-11.0)
[2022-12-02] MEDS: 0.9 % SODIUM CHLORIDE 1,000 ML 1000 ML IV ×2 (18:54→19:55)
[2022-12-02 19:00] LABS: Anion Gap 15.2; BUN Creatinine Ratio 7.8; Calcium 8.6 mg/dL (8.5-10.1); Carbon Dioxide 23.4 mmol/L (21.0-32.0); Chloride 100 mmol/L (98-107); Estimated GFR (African America >60 (>=60); Estimated GFR (Non-African Ame >60 (>=60); Glucose 117 mg/dL (74-106); Potassium 4.6 mmol/L (3.5-5.1); Sodium 134 mmol/L (136-145)
--- NOTE | 2022-12-02 19:44 | ED_ITS ---
HPI - Weakness General Chief complaint: Weakness Stated complaint: General Weakness Time Seen by Provider: 12/02/22 18:23 Source: patient Mode of arrival: walk-in Limitations: no limitations History of Present Illness HPI Narrative: This 32-year-old male with a history of rheumatoid arthritis was signed out to me at shift change. Patient was seen and evaluated in room 10. He has a history of rheumatoid arthritis and feels that he is getting a flare of rheumatoid arthritis and/or gout. He has pain in his feet and knees. He states that he was at home earlier today and was going upstairs to the bathroom, he started feeling dizzy and had blurred vision while walking up the stairs and had to lay down because he was afraid he was going to pass out. He did not pass out but instead called his father to bring him to the hospital. He denies any chest pain or shortness of breath. He does not smoke cigarettes. He has no focal neurologic deficits. EKG and routine labs were ordered and are normal. I added on a COVID 19. The patient states that he feels he is getting rheumatoid flare and requests morphine, Toradol and Solu-Medrol. He did take a Percocet earlier today around 9:30 AM but it has worn off and his pain is moderate and he is afraid he is going to become severe. His COVID 19 test is negative and he is feeling better after an additional liter of IVF, he has normal labs and vital signs. He will be discharged home with Rx for prednisone taper. Related Data Home Medications Medication Instructions Recorded Confirmed allopurinol 300 mg tablet 600 mg PO DAILY 08/31/22 12/02/22 alprazolam 0.5 mg tablet 0.5 mg PO BID 08/31/22 12/02/22 amlodipine 10 mg tablet 10 mg PO BID 08/31/22 12/02/22 carvedilol 6.25 mg tablet 6.25 mg PO DAILY 08/31/22 12/02/22 celecoxib 100 mg capsule 100 mg PO DAILY 08/31/22 12/02/22 clonidine HCl 0.1 mg tablet 0.1 mg PO BID 08/31/22 12/02/22 colchicine (gout) 0.6 mg tablet 0.6 mg PO .every other 08/31/22 12/02/22 escitalopram oxalate 5 mg tablet 5 mg PO DAILY 08/31/22 12/02/22 gabapentin 100 mg capsule 100 mg PO .q8 08/31/22 12/02/22 oxycodone-acetaminophen 5 mg-325 1 tab PO Q12H PRN pain 08/31/22 12/02/22 mg tablet quetiapine 50 mg tablet 50 mg PO .hs 08/31/22 12/02/22 tramadol 50 mg tablet 50 mg PO Q6H PRN pain 08/31/22 12/02/22 Allergies Allergy/AdvReac Type Severity Reaction Status Date / Time No Known Drug Allergies Allergy Verified 12/02/22 18:28 PFSH PFS Social History Smoking status: Never smoker Exam Constitutional Vital Signs, click to edit/add: Last Vital Signs Temp 98.2 F 12/02/22 18:22 Pulse 88 12/02/22 18:22 Resp 16 12/02/22 18:22 BP 111/74 12/02/22 18:22 Pulse Ox 93 L 12/02/22 18:48 O2 Del Method Room Air 12/02/22 18:48 Course Vital Signs Vital signs: Vital Signs Temperature 98.2 F 12/02/22 18:22 Pulse Rate 88 12/02/22 18:22 Respiratory Rate 16 12/02/22 18:22 Blood Pressure 111/74 12/02/22 18:22 Pulse Oximetry 93 L 12/02/22 18:22 Oxygen Delivery Method Room Air 12/02/22 18:22 Temperature 98.2 F 12/02/22 18:22 Pulse Rate 88 12/02/22 18:22 Respiratory Rate 16 12/02/22 18:22 Blood Pressure 111/74 12/02/22 18:22 Pulse Oximetry 93 L 12/02/22 18:48 Oxygen Delivery Method Room Air 12/02/22 18:48 MDM - Weakness Lab Data Attestation: I reviewed the patient's lab results. Labs: Lab Results 12/02/22 12/02/22 Range/Units 18:30 19:13 WBC 5.2 (4.0-11.0) 10^3/uL RBC 5.06 (4.70-6.10) 10^6/uL Hgb 15.2 (14.0-18.0) g/dL Hct 44.0 (42.0-54.0) % MCV 87.0 (80.0-94.0) fL MCH 30.0 (25.9-34.0) pg MCHC 34.5 (29.9-35.2) g/dL RDW 14.3 (11.0-15.0) % Plt Count 308 (150-450) 10^3/uL MPV 10.1 (9.5-13.5) fL Neut % (Auto) 49.3 (43.0-75.0) % Lymph % (Auto) 45.3 (20.5-60.0) % [place] % (Auto) 4.4 (1.7-12.0) % Eos % (Auto) 0.2 L (0.9-7.0) % Baso % (Auto) 0.6 (0.2-2.0) % Neut # (Auto) 2.6 (1.4-6.5) 10^3/uL Lymph # (Auto) 2.4 (1.2-3.8) 10^3/uL [place] # (Auto) 0.2 L (0.3-0.8) 10^3/uL Eos # (Auto) 0.0 (0.0-0.7) 10^3/uL Baso # (Auto) 0.0 (0.0-0.1) 10^3/uL Abs Immat Gran (auto) 0.01 (0.00-0.03) 10^3/uL Imm/Tot Granulo (auto) 0.2 (0.0-0.5) % Sodium 134 L (136-145) mmol/L Potassium 4.6 (3.5-5.1) mmol/L Chloride 100 (98-107) mmol/L Carbon Dioxide 23.4 (21.0-32.0) mmol/L Anion Gap 15.2 BUN 10.0 (7.0-18.0) mg/dL Creatinine 1.28 (0.70-1.30) mg/dL Est GFR ( Amer) >60 (>=60) Est GFR (Non-Af Amer) >60 (>=60) BUN/Creatinine Ratio 7.8 Glucose 117 H (74-106) mg/dL Calcium 8.6 (8.5-10.1) mg/dL SARS-CoV-2 (PCR) Negative (NEGATIVE) Discharge Plan Discharge Chief Complaint: Weakness Clinical Impression: Weakness, Rheumatoid arthritis flare Patient Disposition: Home, Self-Care Time of Disposition Decision: 20:46 Condition: Good Prescriptions / Home Meds: No Action tramadol 50 mg tablet 50 mg PO Q6H PRN (Reason: pain) quetiapine 50 mg tablet 50 mg PO .hs oxycodone-acetaminophen 5-325 mg tablet 1 tab PO Q12H PRN (Reason: pain) gabapentin 100 mg capsule 100 mg PO .q8 Hold Instructions: Doctor's Order escitalopram oxalate 5 mg tablet 5 mg PO DAILY colchicine (gout) 0.6 mg tablet 0.6 mg PO .every other clonidine HCl 0.1 mg tablet 0.1 mg PO BID celecoxib 100 mg capsule 100 mg PO DAILY carvedilol 6.25 mg tablet 6.25 mg PO DAILY amlodipine 10 mg tablet 10 mg PO BID alprazolam 0.5 mg tablet 0.5 mg PO BID allopurinol 300 mg tablet 600 mg PO DAILY Additional Instructions: Continue your current medications. Use the prednisone as needed for your rheumatoid arthritis flare. Follow closely with her family physician. Stand Alone Forms: Portal Instructions Referrals: LEYDI ACEVES [Primary Care Provider] - 1 week Discharge Date/Time: 12/02/22 21:25
[2022-12-02 19:47] LABS: SARS-CoV-2 Ag NEGATIVE (NEGATIVE)
[2022-12-02] MEDS: MORPHINE SULFATE 4 MG/ML VIAL IV (19:56)
[2022-12-02] MEDS: KETOROLAC TROMETHAMINE 30 MG/ML VIAL IVP (19:56)
[2022-12-02] MEDS: METHYLPREDNISOLONE SOD SUCC PF 125 MG/2 ML VIAL IVP (19:56)
[2022-12-02] MEDS: OXYCODONE HCL/ACETAMINOPHEN 5MG/325MG 1 TAB PO (21:09)
[2022-12-03 15:08] LABS: SARS-CoV-2 NAA NOT DETECTED (NOT DETECTE)
== END 2022-12-02 21:25 | disposition home or self-care (01) ==
PROVIDERS: Emergency Medicine; Emergency Provider Emergency Medicine; PCP Family Medicine
DX: R53.1 Weakness (principal); M06.9 Rheumatoid arthritis, unspecified; Z79.899 Other long term (current) drug therapy; Z20.822 Contact with and (suspected) exposure to COVID-19
CPT/HCPCS: 36415; 80048; 85025; 87635; 87811; 93005; 96361; 96374; 96375; 99285; J2930; U0003

== ENCOUNTER 2022-12-11 18:44 | Emergency (ER) | payer OTHER, SELFPAY ==
[2022-12-11 18:48] VITALS: BP 155/98; PULSE 106; RESP 18; TEMP 36.8; O2SAT 98; BMI 28.3
--- NOTE | 2022-12-11 18:58 | ED.GENADUL1 ---
HPI - General Adult General Chief complaint: Back Pain/Injury Stated complaint: lower pain Time Seen by Provider: 12/11/22 18:56 Source: patient Mode of arrival: walk-in History of Present Illness HPI narrative: patient is a 32-year-old male who is well-known to this emergency department for history of chronic pain and rheumatoid arthritis, he presents for flareup . He states today he noticed increasing pain and sensitivity to the anterior knees as well as the bilateral elbows. He had no falls or injuries. He states his knees feel very stiff. He takes chronic low-dose steroids from his educational speech language clinician to [facility]. He is not due to see her until January. He takes tramadol chronically for pain. No fevers or vomiting. Related Data Home Medications Medication Instructions Recorded Confirmed allopurinol 300 mg tablet 600 mg PO DAILY 08/31/22 12/02/22 alprazolam 0.5 mg tablet 0.5 mg PO BID 08/31/22 12/02/22 amlodipine 10 mg tablet 10 mg PO BID 08/31/22 12/02/22 carvedilol 6.25 mg tablet 6.25 mg PO DAILY 08/31/22 12/02/22 celecoxib 100 mg capsule 100 mg PO DAILY 08/31/22 12/02/22 clonidine HCl 0.1 mg tablet 0.1 mg PO BID 08/31/22 12/02/22 colchicine (gout) 0.6 mg tablet 0.6 mg PO .every other 08/31/22 12/02/22 escitalopram oxalate 5 mg tablet 5 mg PO DAILY 08/31/22 12/02/22 gabapentin 100 mg capsule 100 mg PO .q8 08/31/22 12/02/22 oxycodone-acetaminophen 5 mg-325 1 tab PO Q12H PRN pain 08/31/22 12/02/22 mg tablet quetiapine 50 mg tablet 50 mg PO .hs 08/31/22 12/02/22 tramadol 50 mg tablet 50 mg PO Q6H PRN pain 08/31/22 12/02/22 Previous Rx's Medication Instructions Recorded ondansetron 4 mg disintegrating 4 mg PO Q6H PRN nausea and 12/11/22 tablet vomiting #12 tabs oxycodone-acetaminophen 5 mg-325 1 tab PO Q6H PRN pain #10 tabs 10/13/23 mg tablet (Percocet) prednisone 20 mg tablet See Rx Instructions .Route 12/11/22 .COMPLEX #12 tabs Allergies Allergy/AdvReac Type Severity Reaction Status Date / Time No Known Drug Allergies Allergy Verified 12/02/22 18:28 Review of Systems ROS Constitutional Denies: fever or chills Ears, nose, mouth, and throat Denies: throat pain Respiratory Denies: shortness of breath Gastrointestinal Denies: nausea or vomiting Musculoskeletal Reports: extremity pain, joint pain, limited range of motion and joint swelling; Denies: back pain or neck pain Integumentary/Breast Denies: rash Neurological Denies: headache PFSH PFSH Social History Smoking status: Current every day smoker Exam Narrative Exam Narrative: Gen.: Awake, alert, in no distress Head: Normocephalic, atraumatic ENT: Moist mucous membranes Respiratory: No respiratory distress, lungs clear bilaterally Cardio: Regular rate and rhythm Extremities: limited movement of the bilateral elbows and knees, chronic joint swelling/arthritic deformities noted of the knuckles of the hands, bilateral elbows, bilateral knees. No evidence of septic arthritis, cellulitis or red streaking. Psych: Normal mood and affect Neuro: No focal neuro deficit Skin: Warm, dry, intact Constitutional Vital Signs, click to edit/add: Last Vital Signs Temp 98.3 F 12/11/22 18:48 Pulse 106 H 12/11/22 18:48 Resp 18 12/11/22 18:48 BP 130/75 12/11/22 20:53 Pulse Ox 98 12/11/22 20:53 O2 Del Method Room Air 12/11/22 18:48 Course Vital Signs Vital signs: Vital Signs Temperature 98.3 F 12/11/22 18:48 Pulse Rate 106 H 12/11/22 18:48 Respiratory Rate 18 12/11/22 18:48 Blood Pressure 155/98 H 12/11/22 18:48 Pulse Oximetry 98 12/11/22 18:48 Oxygen Delivery Method Room Air 12/11/22 18:48 Temperature 98.3 F 12/11/22 18:48 Pulse Rate 106 H 12/11/22 18:48 Respiratory Rate 18 12/11/22 18:48 Blood Pressure 130/75 12/11/22 20:53 Pulse Oximetry 98 12/11/22 20:53 Oxygen Delivery Method Room Air 12/11/22 18:48 Medical Decision Making MDM Narrative Medical decision making narrative: patient's labs do show significant elevation of CRP and sedimentation rate as well as uric acid levels. The remainder of his labs are unremarkable. He was treated with IV fluids, steroids, pain medication, anti-inflammatories and muscle relaxants with some improvement. He maintains normal vital signs in the Emergency Room. He is prescribed Percocet twice a day at home, he states he has run out of this medication, he is supposed to have another weeks worth of this medication per [place]ARRS, he was strongly encouraged to take her medications as prescribed, he is given a short course of Percocet for breakthrough pain as he is having an active gouty arthritis flare. He will be given a taper of steroids until he can see his educational speech language clinician. Return to the Emergency Room if symptoms change or worsen. Medical Records Medical records reviewed: Yes I reviewed the patient's medical records Lab Data Lab results reviewed: Yes I reviewed the patient's lab results Labs: Lab Results 12/11/22 Range/Units 19:00 WBC 9.7 (4.0-11.0) 10^3/uL RBC 3.85 L (4.70-6.10) 10^6/uL Hgb 11.6 L (14.0-18.0) g/dL Hct 34.7 L (42.0-54.0) % MCV 90.1 (80.0-94.0) fL MCH 30.1 (25.9-34.0) pg MCHC 33.4 (29.9-35.2) g/dL RDW 13.4 (11.0-15.0) % Plt Count 278 (150-450) 10^3/uL MPV 11.0 (9.5-13.5) fL Neut % (Auto) 92.0 H (43.0-75.0) % Lymph % (Auto) 3.5 L (20.5-60.0) % [place] % (Auto) 4.1 (1.7-12.0) % Eos % (Auto) 0.0 L (0.9-7.0) % Baso % (Auto) 0.1 L (0.2-2.0) % Neut # (Auto) 8.9 H (1.4-6.5) 10^3/uL Lymph # (Auto) 0.3 L (1.2-3.8) 10^3/uL [place] # (Auto) 0.4 (0.3-0.8) 10^3/uL Eos # (Auto) 0.0 (0.0-0.7) 10^3/uL Baso # (Auto) 0.0 (0.0-0.1) 10^3/uL Abs Immat Gran (auto) 0.03 (0.00-0.03) 10^3/uL Imm/Tot Granulo (auto) 0.3 (0.0-0.5) % ESR 109 H (<=15) mm/hr Sodium 134 L (136-145) mmol/L Potassium 3.4 L (3.5-5.1) mmol/L Chloride 96 L (98-107) mmol/L Carbon Dioxide 27.8 (21.0-32.0) mmol/L Anion Gap 13.6 BUN 15.0 (7.0-18.0) mg/dL Creatinine 1.40 H (0.70-1.30) mg/dL Est GFR ( Amer) >60 (>=60) Est GFR (Non-Af Amer) 59 L (>=60) BUN/Creatinine Ratio 10.7 Glucose 157 H (74-106) mg/dL Uric Acid 11.3 H (3.5-7.2) mg/dL Calcium 9.5 (8.5-10.1) mg/dL Total Bilirubin 0.9 (0.2-1.0) mg/dL AST 32 (15-37) U/L ALT 32 (16-63) U/L Alkaline Phosphatase 61 (46-116) U/L C-Reactive Protein 31.1 H (<=1.0) mg/dL Total Protein 8.0 (6.4-8.2) g/dL Albumin 3.6 (3.4-5.0) g/dL Globulin 4.4 g/dL Albumin/Globulin Ratio 0.8 Discharge Plan Discharge Chief Complaint: Back Pain/Injury Clinical Impression: Polyarthralgia, Rheumatoid arthritis flare, Gouty arthritis Patient Disposition: Home, Self-Care Time of Disposition Decision: 20:27 Condition: Good Prescriptions / Home Meds: New prednisone 20 mg tablet See Rx Instructions .ROUTE .COMPLEX Qty: 12 0RF Rx Instructions: 3 tabs daily for 2 days, then 2 tabs daily for 2 days, then 1 tab daily for 2 days oxycodone-acetaminophen [Percocet] 5-325 mg tablet 1 tab PO Q6H PRN (Reason: pain) Qty: 10 0RF Rx Instructions: DX: M10.9; to be taken with regular (daily) Percocet for breakthrough pain for a maximum of 4 Percocet tabs (q6h PRN pain daily) ondansetron 4 mg tablet,disintegrating 4 mg PO Q6H PRN (Reason: nausea and vomiting) Qty: 12 0RF No Action tramadol 50 mg tablet 50 mg PO Q6H PRN (Reason: pain) quetiapine 50 mg tablet 50 mg PO .hs oxycodone-acetaminophen 5-325 mg tablet 1 tab PO Q12H PRN (Reason: pain) gabapentin 100 mg capsule 100 mg PO .q8 Hold Instructions: Doctor's Order escitalopram oxalate 5 mg tablet 5 mg PO DAILY colchicine (gout) 0.6 mg tablet 0.6 mg PO .every other clonidine HCl 0.1 mg tablet 0.1 mg PO BID celecoxib 100 mg capsule 100 mg PO DAILY carvedilol 6.25 mg tablet 6.25 mg PO DAILY amlodipine 10 mg tablet 10 mg PO BID alprazolam 0.5 mg tablet 0.5 mg PO BID allopurinol 300 mg tablet 600 mg PO DAILY Instructions: Gout (ED), Rheumatoid Arthritis (ED), Arthralgia (ED) Stand Alone Forms: Portal Instructions Referrals: LEYDI ACEVES [Primary Care Provider] - 1 week Discharge Date/Time: 12/11/22 20:56
[2022-12-11] MEDS: HYDROMORPHONE HCL 1 MG/ML CARTRIDGE IVP (19:31)
[2022-12-11] MEDS: ONDANSETRON PF 4 MG/2 ML VIAL IV (19:31)
[2022-12-11] MEDS: METHYLPREDNISOLONE SOD SUCC PF 125 MG/2 ML VIAL IVP (19:31)
[2022-12-11] MEDS: KETOROLAC TROMETHAMINE 30 MG/ML VIAL IVP (19:31)
[2022-12-11] MEDS: 0.9 % SODIUM CHLORIDE 1,000 ML 999 ML IV (19:31)
[2022-12-11 19:46] LABS: Basophils Percent Auto 0.1 % (0.2-2.0); Hematocrit 34.7 % (42.0-54.0); Hemoglobin 11.6 g/dL (14.0-18.0); Immature Granulocytes Abs Auto 0.03 10^3/uL (0.00-0.03); Immature Granulocytes Pct Auto 0.3 % (0.0-0.5); Lymphocytes Absolute Auto 0.3 10^3/uL (1.2-3.8); Lymphocytes Percent Auto 3.5 % (20.5-60.0); Mean Corpuscular HGB Conc 33.4 g/dL (29.9-35.2); Mean Corpuscular Hemoglobin 30.1 pg (25.9-34.0); Mean Corpuscular Volume 90.1 fL (80.0-94.0); Monocytes Absolute Auto 0.4 10^3/uL (0.3-0.8); Monocytes Percent Auto 4.1 % (1.7-12.0); Neutrophils Absolute Auto 8.9 10^3/uL (1.4-6.5); Platelet Count 278 10^3/uL (150-450); Red Blood Count 3.85 10^6/uL (4.70-6.10); Red Cell Distribution Width 13.4 % (11.0-15.0); White Blood Count 9.7 10^3/uL (4.0-11.0)
[2022-12-11 20:04] LABS: Erythrocyte Sedimentation Rate 109 mm/hr (<=15)
[2022-12-11 20:07] LABS: C Reactive Protein 31.1 mg/dL (<=1.0)
[2022-12-11 20:18] LABS: Alanine Aminotransferase 32 U/L (16-63); Albumin Globulin Ratio 0.8; Albumin Level 3.6 g/dL (3.4-5.0); Alkaline Phosphatase 61 U/L (46-116); Anion Gap 13.6; Aspartate Amino Transferase 32 U/L (15-37); BUN Creatinine Ratio 10.7; Bilirubin Total 0.9 mg/dL (0.2-1.0); Calcium 9.5 mg/dL (8.5-10.1); Carbon Dioxide 27.8 mmol/L (21.0-32.0); Chloride 96 mmol/L (98-107); Estimated GFR (African America >60 (>=60); Estimated GFR (Non-African Ame 59 (>=60); Globulin 4.4 g/dL; Glucose 157 mg/dL (74-106); Potassium 3.4 mmol/L (3.5-5.1); Sodium 134 mmol/L (136-145); Uric Acid 11.3 mg/dL (3.5-7.2)
[2022-12-11] MEDS: OXYCODONE HCL/ACETAMINOPHEN 5MG/325MG 2 TAB PO (20:47)
[2022-12-11] MEDS: COLCHICINE 0.6 MG TABLET 1.2 MG PO (20:47)
[2022-12-11 20:53] VITALS: BP 130/75; O2SAT 98
== END 2022-12-11 20:56 | disposition home or self-care (01) ==
PROVIDERS: Physician Assistant; Emergency Provider Internal Medicine; PCP Family Medicine
DX: M25.562 Pain in left knee (principal); M06.9 Rheumatoid arthritis, unspecified; M10.9 Gout, unspecified; F17.210 Nicotine dependence, cigarettes, uncomplicated; M25.561 Pain in right knee; M25.522 Pain in left elbow; M25.521 Pain in right elbow; Z79.52 Long term (current) use of systemic steroids; Z79.899 Other long term (current) drug therapy
CPT/HCPCS: 36415; 80053; 84550; 85025; 85652; 86140; 96374; 96375; 99284; J1170; J2930

== ENCOUNTER 2023-01-11 12:50 | Emergency (ER) | payer OTHER, SELFPAY ==
[2023-01-11 12:58] VITALS: BP 117/75; PULSE 78; RESP 16; TEMP 36.6; O2SAT 98; BMI 27.6
--- NOTE | 2023-01-11 13:15 | ED_ITS ---
HPI - Nausea/Vomiting/Diarrhea General Chief complaint: Nausea/Vomiting/Diarrhea Stated complaint: ELBOWS/KNEE PAIN Time Seen by Provider: 01/11/23 13:06 Source: patient Mode of arrival: walk-in Limitations: no limitations History of Present Illness HPI Narrative: patient is a 32-year-old male well-known to this emergency department with a history of gouty arthritis and chronic pain, presents today for evaluation of increasing pain over the last five days to the bilateral knees and left elbow as well as generalized body aches and diarrhea. She states she is not sure if he is having an exacerbation of his arthritis or is getting sick. He has had no objective fevers, vomiting, abdominal pain. He reports concentrated urine with no other urinary symptoms. He has not been on any steroids in the last several weeks but was on a steroid course one month ago when he was seen in this emergency department for similar symptoms. He denies any recent antibiotics or travel, no sick contacts in the home. Related Data Home Medications Medication Instructions Recorded Confirmed allopurinol 300 mg tablet 600 mg PO DAILY 08/31/22 12/02/22 alprazolam 0.5 mg tablet 0.5 mg PO BID 08/31/22 12/02/22 amlodipine 10 mg tablet 10 mg PO BID 08/31/22 12/02/22 carvedilol 6.25 mg tablet 6.25 mg PO DAILY 08/31/22 12/02/22 celecoxib 100 mg capsule 100 mg PO DAILY 08/31/22 12/02/22 clonidine HCl 0.1 mg tablet 0.1 mg PO BID 08/31/22 12/02/22 colchicine 0.6 mg tablet 0.6 mg PO .every other 08/31/22 12/02/22 escitalopram oxalate 5 mg tablet 5 mg PO DAILY 08/31/22 12/02/22 gabapentin 100 mg capsule 100 mg PO .q8 08/31/22 12/02/22 oxycodone-acetaminophen 5 mg-325 1 tab PO Q12H PRN pain 08/31/22 12/02/22 mg tablet quetiapine 50 mg tablet 50 mg PO .hs 08/31/22 12/02/22 tramadol 50 mg tablet 50 mg PO Q6H PRN pain 08/31/22 12/02/22 Previous Rx's Medication Instructions Recorded ondansetron 4 mg disintegrating 4 mg PO Q6H PRN nausea and 10/13/23 tablet vomiting #12 tabs oxycodone-acetaminophen 5 mg-325 1 tab PO Q6H PRN pain #10 tabs 12/11/22 mg tablet (Percocet) prednisone 20 mg tablet See Rx Instructions .Route 12/11/22 .COMPLEX #12 tabs hyoscyamine sulfate 0.125 mg 0.125 mg PO Q6H PRN abdominal 01/11/23 tablet (Levsin) pain/diarrhea #12 tabs methocarbamol 750 mg tablet 750 mg PO TID PRN pain #20 tabs 01/11/23 ondansetron 4 mg disintegrating 4 mg PO Q6H PRN nausea and 01/11/23 tablet vomiting #12 tabs Allergies Allergy/AdvReac Type Severity Reaction Status Date / Time No Known Drug Allergies Allergy Verified 12/02/22 18:28 Review of Systems ROS Constitutional Reports: fatigue; Denies: fever or chills Ears, nose, mouth, and throat Denies: throat pain or nasal congestion Cardiovascular Denies: chest pain Respiratory Denies: shortness of breath or cough Gastrointestinal Reports: diarrhea; Denies: abdominal pain, nausea or vomiting Genitourinary Denies: painful urination Musculoskeletal Reports: extremity pain, joint pain and joint swelling; Denies: back pain Integumentary/Breast Denies: rash Neurological Denies: headache Hematologic/Lymphatic Denies: easy bruising PFSH PFSH Social History Smoking status: Never smoker Exam Narrative Exam Narrative: Gen.: Awake, alert, in no distress Head: Normocephalic, atraumatic ENT: Moist mucous membranes Respiratory: No respiratory distress Gastrointestinal: Abdomen is soft, nondistended and nontender to palpation Extremities: Moves extremities equally, bilateral elbows and knees with chronic arthritic deformities, no redness or warmth of the joints noted. Psych: Normal mood and affect Neuro: No focal neuro deficit Skin: Warm, dry, intact Constitutional Vital Signs, click to edit/add: Last Vital Signs Temp 98 F 01/11/23 12:58 Pulse 78 01/11/23 12:58 Resp 16 01/11/23 12:58 BP 117/75 01/11/23 12:58 Pulse Ox 98 01/11/23 12:58 O2 Del Method Room Air 11/13/23 12:58 Course Vital Signs Vital signs: Vital Signs Temperature 98 F 01/11/23 12:58 Pulse Rate 78 01/11/23 12:58 Respiratory Rate 16 01/11/23 12:58 Blood Pressure 117/75 01/11/23 12:58 Pulse Oximetry 98 01/11/23 12:58 Oxygen Delivery Method Room Air 01/11/23 12:58 Temperature 98 F 01/11/23 12:58 Pulse Rate 78 01/11/23 12:58 Respiratory Rate 16 01/11/23 12:58 Blood Pressure 117/75 01/11/23 12:58 Pulse Oximetry 98 01/11/23 12:58 Oxygen Delivery Method Room Air 01/11/23 12:58 MDM - Nausea/Vomiting/Diarrhea MDM Narrative Medical decision making narrative: patient treated with IV fluids, morphine, Zofran, Toradol, Solu-Medrol. Labs are improved from one month ago, he is currently taking Ultram from his PCP per OARRS. No indication for additional home steroids or narcotics at this time. He is given Levsin and Zofran for diarrhea and can continue the Ultram and Celebrex. Follow-up with PCP and return to the Emergency Room if symptoms change or worsen. Vital signs within normal limits in the Emergency Room. Medical Records Attestation: I reviewed the patient's medical records. Lab Data Attestation: I reviewed the patient's lab results. Labs: Lab Results 01/11/23 Range/Units 13:17 WBC 7.1 (4.0-11.0) 10^3/uL RBC 4.14 L (4.70-6.10) 10^6/uL Hgb 12.5 L (14.0-18.0) g/dL Hct 37.2 L (42.0-54.0) % MCV 89.9 (80.0-94.0) fL MCH 30.2 (25.9-34.0) pg MCHC 33.6 (29.9-35.2) g/dL RDW 13.3 (11.0-15.0) % Plt Count 241 (150-450) 10^3/uL MPV 10.6 (9.5-13.5) fL Neut % (Auto) 79.4 H (43.0-75.0) % Lymph % (Auto) 15.4 L (20.5-60.0) % [place] % (Auto) 4.7 (1.7-12.0) % Eos % (Auto) 0.1 L (0.9-7.0) % Baso % (Auto) 0.3 (0.2-2.0) % Neut # (Auto) 5.6 (1.4-6.5) 10^3/uL Lymph # (Auto) 1.1 L (1.2-3.8) 10^3/uL [place] # (Auto) 0.3 (0.3-0.8) 10^3/uL Eos # (Auto) 0.0 (0.0-0.7) 10^3/uL Baso # (Auto) 0.0 (0.0-0.1) 10^3/uL Abs Immat Gran (auto) 0.01 (0.00-0.03) 10^3/uL Imm/Tot Granulo (auto) 0.1 (0.0-0.5) % ESR 51 H (<=15) mm/hr Sodium 143 (136-145) mmol/L Potassium 3.7 (3.5-5.1) mmol/L Chloride 104 (98-107) mmol/L Carbon Dioxide 28.0 (21.0-32.0) mmol/L Anion Gap 14.7 BUN 7.0 (7.0-18.0) mg/dL Creatinine 1.19 (0.70-1.30) mg/dL Est GFR ( Amer) >60 (>=60) Est GFR (Non-Af Amer) >60 (>=60) BUN/Creatinine Ratio 5.9 Glucose 169 H (74-106) mg/dL Lactate 1.5 (0.4-2.0) mmol/L Uric Acid 10.3 H (3.5-7.2) mg/dL Calcium 9.0 (8.5-10.1) mg/dL Total Bilirubin 0.3 (0.2-1.0) mg/dL AST 21 (15-37) U/L ALT 24 (16-63) U/L Alkaline Phosphatase 75 (46-116) U/L C-Reactive Protein 1.1 H (<=1.0) mg/dL Total Protein 6.8 (6.4-8.2) g/dL Albumin 3.5 (3.4-5.0) g/dL Globulin 3.3 g/dL Albumin/Globulin Ratio 1.1 Discharge Plan Discharge Chief Complaint: Nausea/Vomiting/Diarrhea Clinical Impression: Polyarthralgia, Diarrhea Patient Disposition: Home, Self-Care Time of Disposition Decision: 13:50 Condition: Good Prescriptions / Home Meds: New hyoscyamine sulfate [Levsin] 0.125 mg tablet 0.125 mg PO Q6H PRN (Reason: abdominal pain/diarrhea) Qty: 12 0RF methocarbamol 750 mg tablet 750 mg PO TID PRN (Reason: pain) Qty: 20 0RF ondansetron 4 mg tablet,disintegrating 4 mg PO Q6H PRN (Reason: nausea and vomiting) Qty: 12 0RF No Action prednisone 20 mg tablet See Rx Instructions .ROUTE .COMPLEX Qty: 12 0RF Rx Instructions: 3 tabs daily for 2 days, then 2 tabs daily for 2 days, then 1 tab daily for 2 days oxycodone-acetaminophen [Percocet] 5-325 mg tablet 1 tab PO Q6H PRN (Reason: pain) Qty: 10 0RF Rx Instructions: DX: M10.9; to be taken with regular (daily) Percocet for breakthrough pain for a maximum of 4 Percocet tabs (q6h PRN pain daily) ondansetron 4 mg tablet,disintegrating 4 mg PO Q6H PRN (Reason: nausea and vomiting) Qty: 12 0RF tramadol 50 mg tablet 50 mg PO Q6H PRN (Reason: pain) quetiapine 50 mg tablet 50 mg PO .hs oxycodone-acetaminophen 5-325 mg tablet 1 tab PO Q12H PRN (Reason: pain) gabapentin 100 mg capsule 100 mg PO .q8 Hold Instructions: Doctor's Order escitalopram oxalate 5 mg tablet 5 mg PO DAILY colchicine 0.6 mg tablet 0.6 mg PO .every other clonidine HCl 0.1 mg tablet 0.1 mg PO BID celecoxib 100 mg capsule 100 mg PO DAILY carvedilol 6.25 mg tablet 6.25 mg PO DAILY amlodipine 10 mg tablet 10 mg PO BID alprazolam 0.5 mg tablet 0.5 mg PO BID allopurinol 300 mg tablet 600 mg PO DAILY Instructions: Acute Diarrhea (ED), Arthralgia (ED) Stand Alone Forms: Portal Instructions Referrals: LEYDI ACEVES [Primary Care Provider] - 1 week
[2023-01-11 13:24] LABS: Basophils Percent Auto 0.3 % (0.2-2.0); Eosinophils Percent Auto 0.1 % (0.9-7.0); Hematocrit 37.2 % (42.0-54.0); Hemoglobin 12.5 g/dL (14.0-18.0); Immature Granulocytes Abs Auto 0.01 10^3/uL (0.00-0.03); Immature Granulocytes Pct Auto 0.1 % (0.0-0.5); Lymphocytes Absolute Auto 1.1 10^3/uL (1.2-3.8); Lymphocytes Percent Auto 15.4 % (20.5-60.0); Mean Corpuscular HGB Conc 33.6 g/dL (29.9-35.2); Mean Corpuscular Hemoglobin 30.2 pg (25.9-34.0); Mean Corpuscular Volume 89.9 fL (80.0-94.0); Mean Platelet Volume 10.6 fL (9.5-13.5); Monocytes Absolute Auto 0.3 10^3/uL (0.3-0.8); Monocytes Percent Auto 4.7 % (1.7-12.0); Neutrophils Absolute Auto 5.6 10^3/uL (1.4-6.5); Neutrophils Percent Auto 79.4 % (43.0-75.0); Platelet Count 241 10^3/uL (150-450); Red Blood Count 4.14 10^6/uL (4.70-6.10); Red Cell Distribution Width 13.3 % (11.0-15.0); White Blood Count 7.1 10^3/uL (4.0-11.0)
[2023-01-11 13:31] LABS: Erythrocyte Sedimentation Rate 51 mm/hr (<=15)
[2023-01-11] MEDS: METHYLPREDNISOLONE SOD SUCC PF 125 MG/2 ML VIAL IVP (13:38)
[2023-01-11] MEDS: KETOROLAC TROMETHAMINE 30 MG/ML VIAL IVP (13:39)
[2023-01-11] MEDS: ONDANSETRON PF 4 MG/2 ML VIAL IV (13:39)
[2023-01-11] MEDS: 0.9 % SODIUM CHLORIDE 1,000 ML 999 ML IV (13:39)
[2023-01-11 13:40] LABS: Alanine Aminotransferase 24 U/L (16-63); Albumin Globulin Ratio 1.1; Albumin Level 3.5 g/dL (3.4-5.0); Alkaline Phosphatase 75 U/L (46-116); Anion Gap 14.7; Aspartate Amino Transferase 21 U/L (15-37); BUN Creatinine Ratio 5.9; Bilirubin Total 0.3 mg/dL (0.2-1.0); C Reactive Protein 1.1 mg/dL (<=1.0); Chloride 104 mmol/L (98-107); Estimated GFR (African America >60 (>=60); Estimated GFR (Non-African Ame >60 (>=60); Globulin 3.3 g/dL; Glucose 169 mg/dL (74-106); Potassium 3.7 mmol/L (3.5-5.1); Sodium 143 mmol/L (136-145); Total Protein 6.8 g/dL (6.4-8.2); Uric Acid 10.3 mg/dL (3.5-7.2)
[2023-01-11 13:43] LABS: Lactate/Lactic Acid 1.5 mmol/L (0.4-2.0)
[2023-01-11] MEDS: MORPHINE SULFATE 4 MG/ML VIAL IV (13:48)
[2023-01-11 14:31] VITALS: PULSE 68; RESP 14; O2SAT 99
== END 2023-01-11 14:32 | disposition home or self-care (01) ==
PROVIDERS: Physician Assistant; Emergency Provider Emergency Medicine; PCP Family Medicine
DX: M25.562 Pain in left knee (principal); M25.561 Pain in right knee; M25.522 Pain in left elbow; R19.7 Diarrhea, unspecified; M1A.9XX0 Chronic gout, unspecified, without tophus (tophi); Z79.899 Other long term (current) drug therapy
CPT/HCPCS: 36415; 80053; 83605; 84550; 85025; 85652; 86140; 96361; 96374; 96375; 99284; J2930

== ENCOUNTER 2023-01-20 11:51 | Emergency (ER) | payer OTHER, SELFPAY ==
[2023-01-20 12:03] VITALS: BP 136/98; PULSE 70; RESP 20; TEMP 36.8; O2SAT 100; BMI 27.6
--- NOTE | 2023-01-20 12:20 | ED_ITS ---
HPI - General Adult General Chief complaint: Headache Stated complaint: HEADACHE Time Seen by Provider: 01/20/23 12:02 Source: patient Mode of arrival: walk-in Limitations: no limitations History of Present Illness HPI narrative: 32-year-old male presents for headache. It's bitemporal and goes into the back of his head. No trauma fever or stiff neck. He's had it for the last day and it's continuous. He took Percocet at home but it didn't work. No fever or localized weakness or vomiting. He does not complain of nausea. Related Data Home Medications Medication Instructions Recorded Confirmed allopurinol 300 mg tablet 600 mg PO DAILY 08/31/22 12/02/22 alprazolam 0.5 mg tablet 0.5 mg PO BID 08/31/22 12/02/22 amlodipine 10 mg tablet 10 mg PO BID 08/31/22 12/02/22 carvedilol 6.25 mg tablet 6.25 mg PO DAILY 08/31/22 12/02/22 celecoxib 100 mg capsule 100 mg PO DAILY 08/31/22 12/02/22 clonidine HCl 0.1 mg tablet 0.1 mg PO BID 08/31/22 12/02/22 colchicine 0.6 mg tablet 0.6 mg PO .every other 08/31/22 12/02/22 escitalopram oxalate 5 mg tablet 5 mg PO DAILY 08/31/22 12/02/22 gabapentin 100 mg capsule 100 mg PO .q8 08/31/22 12/02/22 oxycodone-acetaminophen 5 mg-325 1 tab PO Q12H PRN pain 08/31/22 12/02/22 mg tablet quetiapine 50 mg tablet 50 mg PO .hs 08/31/22 12/02/22 tramadol 50 mg tablet 50 mg PO Q6H PRN pain 08/31/22 12/02/22 Previous Rx's Medication Instructions Recorded ondansetron 4 mg disintegrating 4 mg PO Q6H PRN nausea and 12/11/22 tablet vomiting #12 tabs oxycodone-acetaminophen 5 mg-325 1 tab PO Q6H PRN pain #10 tabs 12/11/22 mg tablet (Percocet) prednisone 20 mg tablet See Rx Instructions .Route 12/11/22 .COMPLEX #12 tabs hyoscyamine sulfate 0.125 mg 0.125 mg PO Q6H PRN abdominal 01/11/23 tablet (Levsin) pain/diarrhea #12 tabs methocarbamol 750 mg tablet 750 mg PO TID PRN pain #20 tabs 01/11/23 ondansetron 4 mg disintegrating 4 mg PO Q6H PRN nausea and 01/11/23 tablet vomiting #12 tabs [id number] 1 cap PO Q6H PRN pain 5 days #20 01/20/23 50 mg-300 mg-40 mg capsule caps (Fioricet) cyclobenzaprine 10 mg tablet 10 mg PO TID PRN muscle spasm #20 01/20/23 tabs Allergies Allergy/AdvReac Type Severity Reaction Status Date / Time No Known Drug Allergies Allergy Verified 12/02/22 18:28 Review of Systems ROS Narrative A ten point review of systems is negative except as noted above. [facility] Social History Smoking status: Never smoker Exam Narrative Exam Narrative: Nurses note and vital signs reviewed and patient is not hypoxic. General: The patient appears well and in no apparent distress. Patient is resting comfortably on cart. Skin: Warm, dry, no pallor noted. There is no rash noted. Head: Normocephalic, atraumatic Eye: Normal conjunctiva, no drainage, EOMI. PERRL Ears, Nose, Mouth, and Throat: oral mucosa is moist. Nares patent. supple, no nuchal rigidity. Cardiovascular: Regular Rate and Rhythm Respiratory: Patient is in no distress, no accessory muscle use, lungs are clear to auscultation, no wheezing, rales or rhonchi Back: non-tender GI: soft and nontender Musculoskeletal: The patient has no evidence of calf tenderness, no pitting edema, symmetrical pulses noted bilaterally Neurological: A&O x4, normal speech; upper and lower extremity strength intact and symmetric Psychiatric: Cooperative Constitutional Vital Signs, click to edit/add: Last Vital Signs Temp 98.3 F 01/20/23 12:03 Pulse 70 01/20/23 12:03 Resp 20 01/20/23 12:03 BP 136/98 H 01/20/23 12:03 Pulse Ox 100 01/20/23 12:03 O2 Del Method Room Air 01/20/23 12:03 Course Vital Signs Vital signs: Vital Signs Temperature 98.3 F 01/20/23 12:03 Pulse Rate 70 01/20/23 12:03 Respiratory Rate 20 01/20/23 12:03 Blood Pressure 136/98 H 01/20/23 12:03 Pulse Oximetry 100 01/20/23 12:03 Oxygen Delivery Method Room Air 01/20/23 12:03 Temperature 98.3 F 01/20/23 12:03 Pulse Rate 70 01/20/23 12:03 Respiratory Rate 20 01/20/23 12:03 Blood Pressure 136/98 H 01/20/23 12:03 Pulse Oximetry 100 01/20/23 12:03 Oxygen Delivery Method Room Air 01/20/23 12:03 Medical Decision Making MDM Narrative Medical decision making narrative: the patient was medicated with Toradol Benadryl & Medrol and was given IV fluids. He feels improved and is able to be discharged home. He was given Flexeril at his request because of some ongoing back issues. Treatment diagnosis and follow-up were discussed with the patient. I've no clinical suspicion of intracranial hemorrhage. Differential Diagnosis Differential Diagnosis: migraine headache, tension headache, nonspecific headache, ICH Discharge Plan Discharge Chief Complaint: Headache Clinical Impression: Headache Patient Disposition: Home, Self-Care Time of Disposition Decision: 13:54 Condition: Good Mode of Transportation: Private Vehicle Prescriptions / Home Meds: New qxpxutvkbk-fcticulxhfxvc-wnzy [Fioricet] 50-300-40 mg capsule 1 cap PO Q6H PRN (Reason: pain) 5 Days Qty: 20 0RF cyclobenzaprine 10 mg tablet 10 mg PO TID PRN (Reason: muscle spasm) Qty: 20 0RF No Action prednisone 20 mg tablet See Rx Instructions .ROUTE .COMPLEX Qty: 12 0RF Rx Instructions: 3 tabs daily for 2 days, then 2 tabs daily for 2 days, then 1 tab daily for 2 days oxycodone-acetaminophen [Percocet] 5-325 mg tablet 1 tab PO Q6H PRN (Reason: pain) Qty: 10 0RF Rx Instructions: DX: M10.9; to be taken with regular (daily) Percocet for breakthrough pain for a maximum of 4 Percocet tabs (q6h PRN pain daily) ondansetron 4 mg tablet,disintegrating 4 mg PO Q6H PRN (Reason: nausea and vomiting) Qty: 12 0RF hyoscyamine sulfate [Levsin] 0.125 mg tablet 0.125 mg PO Q6H PRN (Reason: abdominal pain/diarrhea) Qty: 12 0RF methocarbamol 750 mg tablet 750 mg PO TID PRN (Reason: pain) Qty: 20 0RF ondansetron 4 mg tablet,disintegrating 4 mg PO Q6H PRN (Reason: nausea and vomiting) Qty: 12 0RF tramadol 50 mg tablet 50 mg PO Q6H PRN (Reason: pain) quetiapine 50 mg tablet 50 mg PO .hs oxycodone-acetaminophen 5-325 mg tablet 1 tab PO Q12H PRN (Reason: pain) gabapentin 100 mg capsule 100 mg PO .q8 Hold Instructions: Doctor's Order escitalopram oxalate 5 mg tablet 5 mg PO DAILY colchicine 0.6 mg tablet 0.6 mg PO .every other clonidine HCl 0.1 mg tablet 0.1 mg PO BID celecoxib 100 mg capsule 100 mg PO DAILY carvedilol 6.25 mg tablet 6.25 mg PO DAILY amlodipine 10 mg tablet 10 mg PO BID alprazolam 0.5 mg tablet 0.5 mg PO BID allopurinol 300 mg tablet 600 mg PO DAILY Instructions: Acute Headache (ED) Stand Alone Forms: Portal Instructions Referrals: LEYDI ACEVES [Primary Care Provider] - 1 week
[2023-01-20] MEDS: 0.9 % SODIUM CHLORIDE 1,000 ML 1000 ML IV (12:31)
[2023-01-20] MEDS: METHYLPREDNISOLONE SOD SUCC PF 125 MG/2 ML VIAL IVP (12:33)
[2023-01-20] MEDS: DIPHENHYDRAMINE HCL 50 MG/ML (1ML) VIAL 25 MG IV (12:33)
[2023-01-20] MEDS: KETOROLAC TROMETHAMINE 30 MG/ML VIAL IVP (12:33)
== END 2023-01-20 14:09 | disposition home or self-care (01) ==
PROVIDERS: Emergency Provider Emergency Medicine; PCP Family Medicine
DX: R51.9 Headache, unspecified (principal); Z79.899 Other long term (current) drug therapy
CPT/HCPCS: 96374; 96375; 99284; J2930

== ENCOUNTER 2023-02-08 18:14 | Emergency (ER) | payer OTHER, SELFPAY ==
[2023-02-08 18:30] VITALS: BP 117/88; PULSE 99; RESP 18; TEMP 37.2; O2SAT 97; BMI 27.6
[2023-02-08 19:25] LABS: Influenza Virus A Antigen Negative; Influenza Virus B Antigen Negative; SARS-CoV-2 Ag NEGATIVE (NEGATIVE)
[2023-02-08 19:26] LABS: Internal Control Within Normal Limits
--- NOTE | 2023-02-08 20:24 | ED.GENADUL1 ---
HPI - General Adult General Chief complaint: Headache Stated complaint: BODY ACHES, SEVERE HEADACHE Time Seen by Provider: 02/08/23 19:40 Source: patient Mode of arrival: walk-in Limitations: no limitations History of Present Illness HPI narrative: This 32-year-old male with a history of rheumatoid arthritis and gouty arthritis presents for evaluation of generalized body aches, headache and multiple episodes of diarrhea. He states he has been having back pain which is causing him to have a tension headache and mild nausea for the past 3 days and today started developing diarrhea. He states he has had diarrhea approximately 10 times. He is not having any abdominal pain at this time. He denies any nausea or vomiting. He has not had a fever. He has not had a cough runny nose sore throat or nasal congestion. He does have some cold sores around his lips and his has told him that that is from cough drops. Related Data Home Medications Medication Instructions Recorded Confirmed allopurinol 300 mg tablet 600 mg PO DAILY 08/31/22 12/02/22 alprazolam 0.5 mg tablet 0.5 mg PO BID 08/31/22 12/02/22 amlodipine 10 mg tablet 10 mg PO BID 08/31/22 12/02/22 carvedilol 6.25 mg tablet 6.25 mg PO DAILY 08/31/22 12/02/22 celecoxib 100 mg capsule 100 mg PO DAILY 08/31/22 12/02/22 clonidine HCl 0.1 mg tablet 0.1 mg PO BID 08/31/22 12/02/22 colchicine 0.6 mg tablet 0.6 mg PO .every other 08/31/22 12/02/22 escitalopram oxalate 5 mg tablet 5 mg PO DAILY 08/31/22 12/02/22 gabapentin 100 mg capsule 100 mg PO .q8 08/31/22 12/02/22 oxycodone-acetaminophen 5 mg-325 1 tab PO Q12H PRN pain 08/31/22 12/02/22 mg tablet quetiapine 50 mg tablet 50 mg PO .hs 08/31/22 12/02/22 tramadol 50 mg tablet 50 mg PO Q6H PRN pain 08/31/22 12/02/22 Previous Rx's Medication Instructions Recorded ondansetron 4 mg disintegrating 4 mg PO Q6H PRN nausea and 12/11/22 tablet vomiting #12 tabs oxycodone-acetaminophen 5 mg-325 1 tab PO Q6H PRN pain #10 tabs 12/11/22 mg tablet (Percocet) prednisone 20 mg tablet See Rx Instructions .Route 12/11/22 .COMPLEX #12 tabs hyoscyamine sulfate 0.125 mg 0.125 mg PO Q6H PRN abdominal 01/11/23 tablet (Levsin) pain/diarrhea #12 tabs methocarbamol 750 mg tablet 750 mg PO TID PRN pain #20 tabs 01/11/23 ondansetron 4 mg disintegrating 4 mg PO Q6H PRN nausea and 01/11/23 tablet vomiting #12 tabs skhxmnlmbx-hapwqhatzihdu-yyotpnpo 1 cap PO Q6H PRN pain 5 days #20 01/20/23 50 mg-300 mg-40 mg capsule caps (Fioricet) cyclobenzaprine 10 mg tablet 10 mg PO TID PRN muscle spasm #20 01/20/23 tabs Allergies Allergy/AdvReac Type Severity Reaction Status Date / Time No Known Drug Allergies Allergy Verified 12/02/22 18:28 Review of Systems ROS Status of ROS 10 or more systems reviewed and unremarkable except as noted in history and below PFSH [facility] Social History Smoking status: Never smoker Exam Narrative Exam Narrative: Nurses note and vital signs reviewed and patient is not hypoxic. General: The patient appears well and in no apparent distress. Patient is resting comfortably on cart. Patient winces and grimaces when sitting up, no respiratory distress Skin: Warm, dry, no pallor noted. There is no rash noted. Head: Normocephalic, atraumatic Eye: Normal conjunctiva, no drainage, EOMI. PERRL Ears, Nose, Mouth, and Throat: oral mucosa is Slightly dry, there are not oral lesions but there are several cold sores around the external upper lip, no swelling of the tongue, uvula or pharyngeal soft tissues. No posterior pharyngeal erythema or exudate noted Neck; supple, no meningeal signs Cardiovascular: Regular Rate and Rhythm S1S2, pulses are brisk and equal bialterally Respiratory: Patient is in no distress, no accessory muscle use, lungs are clear to auscultation, no wheezing, rales or rhonchi Back: non-tender, no CVA tenderness bilaterally to percussion. GI: Normal bowel sounds, no tenderness to palpation, no masses appreciated. No rebound, guarding, or rigidity noted. Musculoskeletal: The patient has no evidence of calf tenderness, no pitting edema, symmetrical pulses noted bilaterally Neurological: A&O x4, normal speech Psychiatric: Cooperative Constitutional Vital Signs, click to edit/add: Last Vital Signs Temp 99.0 F 02/08/23 18:30 Pulse 99 H 02/08/23 18:30 Resp 14 02/08/23 21:12 BP 117/88 02/08/23 18:30 Pulse Ox 97 02/08/23 18:30 O2 Del Method Room Air 02/08/23 18:30 Course Vital Signs Vital signs: Vital Signs Temperature 99.0 F 02/08/23 18:30 Pulse Rate 99 H 02/08/23 18:30 Respiratory Rate 18 02/08/23 18:30 Blood Pressure 117/88 02/08/23 18:30 Pulse Oximetry 97 02/08/23 18:30 Oxygen Delivery Method Room Air 02/08/23 18:30 Temperature 99.0 F 02/08/23 18:30 Pulse Rate 99 H 02/08/23 18:30 Respiratory Rate 14 02/08/23 21:12 Blood Pressure 117/88 02/08/23 18:30 Pulse Oximetry 97 02/08/23 18:30 Oxygen Delivery Method Room Air 02/08/23 18:30 Medical Decision Making [facility] Narrative Medical decision making narrative: His 32-year-old male with a history of rheumatoid and gouty arthritis presents for evaluation of back pain which is causing him to have a tension headache. He has also been having diarrhea. He is concerned he may have influenza are Covid 19. His physical exam is benign. He has no nuchal rigidity or fever. He has some mild cold sores around his lips but his is explained that that is due to him sucking on cough drops. There were no other oral lesions or pharyngeal erythema or exudate. An IV was placed and he was medicated with IV fluids, Toradol and 25 mg of IV Solu-Medrol. His labs are normal. Covid 19 is negative. He has not had any diarrheal on the emergency department. On reevaluation he was feeling better and felt comfortable being discharged home. He received a note for work and a prescription for Bentyl to use as needed for ongoing diarrhea. I encouraged him to drink plenty of fluids and return to emergency department as needed. Lab Data Labs: Lab Results 02/08/23 02/08/23 Range/Units 18:37 21:05 WBC 5.1 (4.0-11.0) 10^3/uL RBC 4.06 L (4.70-6.10) 10^6/uL Hgb 12.2 L (14.0-18.0) g/dL Hct 36.5 L (42.0-54.0) % MCV 89.9 (80.0-94.0) fL MCH 30.0 (25.9-34.0) pg MCHC 33.4 (29.9-35.2) g/dL RDW 14.0 (11.0-15.0) % Plt Count 284 (150-450) 10^3/uL MPV 10.8 (9.5-13.5) fL Neut % (Auto) 57.8 (43.0-75.0) % Lymph % (Auto) 29.5 (20.5-60.0) % Kidder % (Auto) 11.5 (1.7-12.0) % Eos % (Auto) 0.4 L (0.9-7.0) % Baso % (Auto) 0.4 (0.2-2.0) % Neut # (Auto) 2.9 (1.4-6.5) 10^3/uL Lymph # (Auto) 1.5 (1.2-3.8) 10^3/uL Kidder # (Auto) 0.6 (0.3-0.8) 10^3/uL Eos # (Auto) 0.0 (0.0-0.7) 10^3/uL Baso # (Auto) 0.0 (0.0-0.1) 10^3/uL Abs Immat Gran (auto) 0.02 (0.00-0.03) 10^3/uL Imm/Tot Granulo (auto) 0.4 (0.0-0.5) % Sodium 139 (136-145) mmol/L Potassium 4.0 (3.5-5.1) mmol/L Chloride 104 (98-107) mmol/L Carbon Dioxide 27.0 (21.0-32.0) mmol/L Anion Gap 12.0 BUN 6.0 L (7.0-18.0) mg/dL Creatinine 0.90 (0.70-1.30) mg/dL Est GFR ( Amer) >60 (>=60) Est GFR (Non-Af Amer) >60 (>=60) BUN/Creatinine Ratio 6.7 Glucose 120 H (74-106) mg/dL Lactate 0.8 (0.4-2.0) mmol/L Calcium 9.2 (8.5-10.1) mg/dL Total Bilirubin 0.4 (0.2-1.0) mg/dL AST 36 (15-37) U/L ALT 50 (16-63) U/L Alkaline Phosphatase 77 (46-116) U/L Total Protein 7.0 (6.4-8.2) g/dL Albumin 3.3 L (3.4-5.0) g/dL Globulin 3.7 g/dL Albumin/Globulin Ratio 0.9 SARS-CoV-2 (PCR) Negative (NEGATIVE) Influenza Type A Ag Negative Influenza Type B Ag Negative Discharge Plan Discharge Chief Complaint: Headache Clinical Impression: Acute viral syndrome, Diarrhea Patient Disposition: Home, Self-Care Time of Disposition Decision: 22:13 Condition: Good Prescriptions / Home Meds: No Action prednisone 20 mg tablet See Rx Instructions .ROUTE .COMPLEX Qty: 12 0RF Rx Instructions: 3 tabs daily for 2 days, then 2 tabs daily for 2 days, then 1 tab daily for 2 days oxycodone-acetaminophen [Percocet] 5-325 mg tablet 1 tab PO Q6H PRN (Reason: pain) Qty: 10 0RF Rx Instructions: DX: M10.9; to be taken with regular (daily) Percocet for breakthrough pain for a maximum of 4 Percocet tabs (q6h PRN pain daily) ondansetron 4 mg tablet,disintegrating 4 mg PO Q6H PRN (Reason: nausea and vomiting) Qty: 12 0RF hyoscyamine sulfate [Levsin] 0.125 mg tablet 0.125 mg PO Q6H PRN (Reason: abdominal pain/diarrhea) Qty: 12 0RF methocarbamol 750 mg tablet 750 mg PO TID PRN (Reason: pain) Qty: 20 0RF ondansetron 4 mg tablet,disintegrating 4 mg PO Q6H PRN (Reason: nausea and vomiting) Qty: 12 0RF bqqzbhjwra-fwctoxqtnlbcy-rjpb [Fioricet] 50-300-40 mg capsule 1 cap PO Q6H PRN (Reason: pain) 5 Days Qty: 20 0RF cyclobenzaprine 10 mg tablet 10 mg PO TID PRN (Reason: muscle spasm) Qty: 20 0RF tramadol 50 mg tablet 50 mg PO Q6H PRN (Reason: pain) quetiapine 50 mg tablet 50 mg PO .hs oxycodone-acetaminophen 5-325 mg tablet 1 tab PO Q12H PRN (Reason: pain) gabapentin 100 mg capsule 100 mg PO .q8 Hold Instructions: Doctor's Order escitalopram oxalate 5 mg tablet 5 mg PO DAILY colchicine 0.6 mg tablet 0.6 mg PO .every other clonidine HCl 0.1 mg tablet 0.1 mg PO BID celecoxib 100 mg capsule 100 mg PO DAILY carvedilol 6.25 mg tablet 6.25 mg PO DAILY amlodipine 10 mg tablet 10 mg PO BID alprazolam 0.5 mg tablet 0.5 mg PO BID allopurinol 300 mg tablet 600 mg PO DAILY Instructions: Acute Diarrhea (ED), Viral Syndrome (ED) Stand Alone Forms: Portal Instructions Referrals: LEYDI ACEVES [Primary Care Provider] - 1 week Discharge Date/Time: 02/08/23 22:26
[2023-02-08] MEDS: KETOROLAC TROMETHAMINE 30 MG/ML VIAL IVP (21:05)
[2023-02-08] MEDS: METHYLPREDNISOLONE SOD SUCC PF 125 MG/2 ML VIAL IVP (21:06)
[2023-02-08] MEDS: 0.9 % SODIUM CHLORIDE 1,000 ML 1000 ML IV (21:06)
[2023-02-08 21:12] VITALS: RESP 14
[2023-02-08 21:19] LABS: Basophils Percent Auto 0.4 % (0.2-2.0); Eosinophils Percent Auto 0.4 % (0.9-7.0); Hematocrit 36.5 % (42.0-54.0); Hemoglobin 12.2 g/dL (14.0-18.0); Immature Granulocytes Abs Auto 0.02 10^3/uL (0.00-0.03); Immature Granulocytes Pct Auto 0.4 % (0.0-0.5); Lymphocytes Absolute Auto 1.5 10^3/uL (1.2-3.8); Lymphocytes Percent Auto 29.5 % (20.5-60.0); Mean Corpuscular HGB Conc 33.4 g/dL (29.9-35.2); Mean Corpuscular Volume 89.9 fL (80.0-94.0); Mean Platelet Volume 10.8 fL (9.5-13.5); Monocytes Absolute Auto 0.6 10^3/uL (0.3-0.8); Monocytes Percent Auto 11.5 % (1.7-12.0); Neutrophils Absolute Auto 2.9 10^3/uL (1.4-6.5); Neutrophils Percent Auto 57.8 % (43.0-75.0); Platelet Count 284 10^3/uL (150-450); Red Blood Count 4.06 10^6/uL (4.70-6.10); White Blood Count 5.1 10^3/uL (4.0-11.0)
[2023-02-08 21:42] LABS: Lactate/Lactic Acid 0.8 mmol/L (0.4-2.0)
[2023-02-08 21:48] LABS: Alanine Aminotransferase 50 U/L (16-63); Albumin Globulin Ratio 0.9; Albumin Level 3.3 g/dL (3.4-5.0); Alkaline Phosphatase 77 U/L (46-116); Aspartate Amino Transferase 36 U/L (15-37); BUN Creatinine Ratio 6.7; Bilirubin Total 0.4 mg/dL (0.2-1.0); Calcium 9.2 mg/dL (8.5-10.1); Chloride 104 mmol/L (98-107); Estimated GFR (African America >60 (>=60); Estimated GFR (Non-African Ame >60 (>=60); Globulin 3.7 g/dL; Glucose 120 mg/dL (74-106); Sodium 139 mmol/L (136-145)
[2023-02-09 15:48] LABS: SARS-CoV-2 NAA NOT DETECTED (NOT DETECTE)
== END 2023-02-08 22:26 | disposition home or self-care (01) ==
PROVIDERS: Emergency Medicine Emergency Medical Services; Emergency Provider Emergency Medicine; PCP Family Medicine
DX: R19.7 Diarrhea, unspecified (principal); B34.9 Viral infection, unspecified; M06.9 Rheumatoid arthritis, unspecified; M10.9 Gout, unspecified; Z79.899 Other long term (current) drug therapy; Z20.822 Contact with and (suspected) exposure to COVID-19
CPT/HCPCS: 36415; 80053; 83605; 85025; 87635; 87804; 87811; 96361; 96374; 96375; 99284; J2930

== ENCOUNTER 2023-02-14 12:53 | Observation (INO) | payer OTHER, SELFPAY ==
[2023-02-14] VITALS (12 sets, daily range): BP systolic 116–140; BP diastolic 78–93; PULSE 86–98; RESP 17–20; TEMP 37.1–37.2; O2SAT 96–100; BMI 27.5
--- NOTE | 2023-02-14 17:29 | XR_ITS ---
[address] [address] Patient Name: TRU CARDOZA MRN: [id number] date: 1990 Sex: M Assigned Patient Location: ER Current Patient Location: ED.MAIN Accession/Order Number: [id number] Exam Date: 02/14/2023 18:00 Report Date: 02/14/2023 18:40 At the request of: DOUGLAS WAN Procedure: XR knee RT 4V EXAM: XR knee RT 4V HISTORY: Knee pain COMPARISON: None. TECHNIQUE: 4 views FINDINGS: IMPRESSION: Anterior prepatellar soft tissue edema. No osseous lesion, fracture, dislocation or subluxation. Joint spaces are normal. Chronic ossification of the tibial tuberosity. No visualized effusion. Electronically authenticated by: LAURI DEL CASTILLO Date: 02/14/2023 18:40
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
[2023-02-14 17:59] LABS: Basophils Percent Auto 0.1 % (0.2-2.0); Eosinophils Percent Auto 0.3 % (0.9-7.0); Hematocrit 39.4 % (42.0-54.0); Hemoglobin 12.7 g/dL (14.0-18.0); Immature Granulocytes Abs Auto 0.04 10^3/uL (0.00-0.03); Immature Granulocytes Pct Auto 0.3 % (0.0-0.5); Lymphocytes Absolute Auto 1.8 10^3/uL (1.2-3.8); Lymphocytes Percent Auto 12.7 % (20.5-60.0); Mean Corpuscular HGB Conc 32.2 g/dL (29.9-35.2); Mean Corpuscular Hemoglobin 30.2 pg (25.9-34.0); Mean Corpuscular Volume 93.6 fL (80.0-94.0); Monocytes Absolute Auto 1.2 10^3/uL (0.3-0.8); Neutrophils Absolute Auto 11.4 10^3/uL (1.4-6.5); Neutrophils Percent Auto 78.6 % (43.0-75.0); Platelet Count 384 10^3/uL (150-450); Red Blood Count 4.21 10^6/uL (4.70-6.10); Red Cell Distribution Width 14.6 % (11.0-15.0); White Blood Count 14.5 10^3/uL (4.0-11.0)
[2023-02-14 18:07] LABS: Erythrocyte Sedimentation Rate 109 mm/hr (<=15)
[2023-02-14] MEDS: OXYCODONE HCL/ACETAMINOPHEN 5MG/325MG 1 TAB PO (18:10)
[2023-02-14] MEDS: KETOROLAC TROMETHAMINE 30 MG/ML VIAL IVP (18:10)
[2023-02-14] MEDS: 0.9 % SODIUM CHLORIDE 1,000 ML 100 ML IV (18:10)
[2023-02-14 18:14] LABS: Anion Gap 9.3; Calcium 9.1 mg/dL (8.5-10.1); Carbon Dioxide 30.3 mmol/L (21.0-32.0); Chloride 101 mmol/L (98-107); Estimated GFR (African America >60 (>=60); Estimated GFR (Non-African Ame >60 (>=60); Glucose 118 mg/dL (74-106); Potassium 3.6 mmol/L (3.5-5.1); Sodium 137 mmol/L (136-145); Uric Acid 8.4 mg/dL (3.5-7.2)
[2023-02-14 18:15] LABS: C Reactive Protein 11.74 mg/dL (<=0.50)
[2023-02-14] MEDS: VANCOMYCIN HCL 2,000 MG in 0.9 % SODIUM CHLORIDE 500 ML 250 MG IV (18:19)
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
[2023-02-14] MEDS: HYDROMORPHONE HCL 1 MG/ML CARTRIDGE IV (19:10)
--- NOTE | 2023-02-14 20:20 | PC.NURSE ---
Right knee red and swollen cottonball and band aid in place.
[2023-02-14] MEDS: HYDROMORPHONE HCL 0.5 MG/0.5 ML SYRINGE IV (23:06)
[2023-02-14] MEDS: FAMOTIDINE/PF 20 MG/2 ML VIAL IV (23:06)
[2023-02-14] MEDS: ALPRAZOLAM 0.5 MG TABLET PO (23:37)
[2023-02-14] MEDS: QUETIAPINE FUMARATE 25 MG TABLET 50 MG PO (23:37)
[2023-02-14] MEDS: GABAPENTIN 100 MG CAPSULE 300 MG PO (23:37)
[2023-02-15] VITALS (17 sets, daily range): BP systolic 117–151; BP diastolic 72–90; PULSE 78–108; RESP 12–18; TEMP 36.4–36.8; O2SAT 93–98
[2023-02-15] MEDS: 0.9 % SODIUM CHLORIDE 1,000 ML 100 ML IV ×2 (03:12→13:48)
[2023-02-15] MEDS: HYDROMORPHONE HCL 0.5 MG/0.5 ML SYRINGE IV (04:06)
--- NOTE | 2023-02-15 04:14 | PC.NURSE ---
Right knee open area covered with telfa pad and 4x4 dressing at this time.
--- NOTE | 2023-02-15 04:15 | PC.NURSE ---
Dressing to right knee is clean, dry, and intact.
[2023-02-15 04:41] LABS: Basophils Percent Auto 0.3 % (0.2-2.0); Eosinophils Absolute Auto 0.1 10^3/uL (0.0-0.7); Hematocrit 33.8 % (42.0-54.0); Hemoglobin 10.8 g/dL (14.0-18.0); Immature Granulocytes Abs Auto 0.02 10^3/uL (0.00-0.03); Immature Granulocytes Pct Auto 0.2 % (0.0-0.5); Lymphocytes Absolute Auto 2.5 10^3/uL (1.2-3.8); Lymphocytes Percent Auto 27.3 % (20.5-60.0); Mean Corpuscular Hemoglobin 29.8 pg (25.9-34.0); Mean Corpuscular Volume 93.4 fL (80.0-94.0); Mean Platelet Volume 10.5 fL (9.5-13.5); Monocytes Absolute Auto 0.7 10^3/uL (0.3-0.8); Monocytes Percent Auto 7.7 % (1.7-12.0); Neutrophils Absolute Auto 5.7 10^3/uL (1.4-6.5); Neutrophils Percent Auto 63.5 % (43.0-75.0); Platelet Count 326 10^3/uL (150-450); Red Blood Count 3.62 10^6/uL (4.70-6.10); Red Cell Distribution Width 14.5 % (11.0-15.0)
[2023-02-15 04:49] LABS: Anion Gap 10.6; BUN Creatinine Ratio 12.1; Calcium 8.6 mg/dL (8.5-10.1); Carbon Dioxide 27.4 mmol/L (21.0-32.0); Chloride 105 mmol/L (98-107); Estimated GFR (African America >60 (>=60); Estimated GFR (Non-African Ame >60 (>=60); Glucose 103 mg/dL (74-106); Sodium 139 mmol/L (136-145)
[2023-02-15] MEDS: GABAPENTIN 100 MG CAPSULE 300 MG PO (05:04)
[2023-02-15] MEDS: ALPRAZOLAM 0.5 MG TABLET PO (05:04)
[2023-02-15] MEDS: VANCOMYCIN HCL 1,250 MG in 0.9 % SODIUM CHLORIDE 250 ML 250 MG IV ×2 (08:18→18:16)
--- NOTE | 2023-02-15 08:46 | P.HP_ITS ---
H&P: HPI History of Present Illness Chief complaint: LOWER EXTREMITY PAIN RIGHT KNEE, Septic Bursitis Narrative: Patient sustained a contusion to his right knee, had increasing pain and swelling and started having some drainage from the knee and presented to the emergency room, found a possible septic arthritis and is admitted for workup and treatment of same Review of Systems ROS Status of ROS 10 or more systems reviewed and unremark able except as noted in history and below [facility] Surgical History (Updated 02/14/23 @ 20:23 by Swathi Barkley RN) H/O shoulder surgery ?Z98.890 - Other specified postprocedural states (ICD-10) Social History Smoking status: Never smoker Highest level of school completed/degree received: Associate degree: occupational, technical, vocational program Meds Home Medications and Allergies Home Medications Medication Instructions Recorded Confirmed Type allopurinol 300 mg tablet 600 mg PO DAILY 08/31/22 02/14/23 History alprazolam 0.5 mg tablet 0.5 mg PO TID PRN anxiety 08/31/22 02/15/23 History amlodipine 10 mg tablet 10 mg PO QDAY 08/31/22 02/15/23 History carvedilol 6.25 mg tablet 6.25 mg PO DAILY 08/31/22 02/14/23 History celecoxib 100 mg capsule 100 mg PO DAILY PRN RA flare 08/31/22 02/15/23 History clonidine HCl 0.1 mg tablet 0.1 mg PO BID 08/31/22 02/14/23 History colchicine 0.6 mg tablet 0.6 mg PO .every other 08/31/22 02/14/23 History quetiapine 50 mg tablet See Rx Instructions PO .hs 08/31/22 02/14/23 History tramadol 50 mg tablet 50 mg PO Q6H PRN pain 08/31/22 02/14/23 History oxycodone-acetaminophen 5 mg-325 1 tab PO Q6H PRN pain #10 tabs 12/11/22 02/14/23 Rx mg tablet (Percocet) gabapentin 300 mg capsule 300 mg PO TID 02/15/23 02/15/23 History (Neurontin) Allergies Allergy/AdvReac Type Severity Reaction Status Date / Time No Known Drug Allergies Allergy Verified 12/02/22 18:28 Exam Constitutional Vital Signs, click to edit/add: Last Vital Signs Temp 98.2 F 02/15/23 05:10 Pulse 92 H 02/15/23 05:10 Resp 18 02/15/23 05:10 BP 119/73 02/15/23 05:10 Pulse Ox 96 02/15/23 07:55 O2 Del Method Room Air 02/15/23 05:10 Documenting provider has reviewed patient's vital signs: yes Common normals: no apparent distress Respiratory Common normals: normal respiratory effort, no retractions and clear to auscultation bilaterally Cardio Common normals: regular rate, regular rhythm and no murmurs GI Common normals: Normal to inspection, nondistended, normoactive bowel sounds present Extremity Common normals: abnormal to inspection (Opening at the level of the knee, about dime sized with drainage) Results Labs Labs: Short CBC 02/14/23 02/15/23 Range/Units 17:45 03:53 WBC 14.5 H 9.0 (4.0-11.0) 10^3/uL Hgb 12.7 L 10.8 L (14.0-18.0) g/dL Hct 39.4 L 33.8 L (42.0-54.0) % Plt Count 384 326 (150-450) 10^3/uL BMP 02/14/23 02/15/23 17:45 03:53 Sodium 137 139 Potassium 3.6 4.0 Chloride 101 105 Carbon Dioxide 30.3 27.4 BUN 10.0 11.0 Creatinine 1.00 0.91 Glucose 118 H 103 Calcium 9.1 8.6 Assessment and Plan Assessment and Plan (1) Septic prepatellar bursitis of right knee: Plan Tachycardia, uncontrolled high blood pressure, leukocytosis with elevated ESR secondary to possible septic arthritis of the right knee-consult to orthopedics. And evaluated today. Keep patient n.p.o. for possible surgical intervention Uncontrolled hypertension-use as needed medications as needed for controlling blood pressure Leukocytosis secondary to above-improved this morning Iron deficiency anemia-will monitor daily History of gouty arthritis-continue with home medications Start patient off as observation-possible surgical intervention later today and evaluation for disposition after that
--- NOTE | 2023-02-15 09:08 | CM.NOTE ---
Rounds made with Dr. John. Orthopedics consulted. NPO currently for a potential plan for surgery. Await Orthopedic recommendation.
[2023-02-15] MEDS: PIPERACILLIN SODIUM/TAZOBACTAM 3.375 GM in 0.9 % SODIUM CHLORIDE 50 ML IV ×2 (09:26→19:44)
[2023-02-15] MEDS: KETOROLAC TROMETHAMINE 30 MG/ML VIAL 15 MG IVP ×2 (09:41→19:43)
[2023-02-15] MEDS: CLONIDINE HCL 0.1 MG TABLET 0.100000000000000006 MG PO ×2 (10:08→21:22)
[2023-02-15] MEDS: CARVEDILOL 6.25 MG TABLET PO (10:08)
[2023-02-15] MEDS: ALLOPURINOL 300 MG TABLET 600 MG PO (10:08)
[2023-02-15] MEDS: FAMOTIDINE/PF 20 MG/2 ML VIAL IV ×2 (10:08→21:21)
[2023-02-15] MEDS: AMLODIPINE BESYLATE 5 MG TABLET 10 MG PO (10:08)
--- NOTE | 2023-02-15 11:23 | PC.NURSE ---
Pt had large amount of drainage on right knee. Dressing was changed, flushed with NS, covered with ABD and wrapped with kerlix. Pt tolerated well. Pt togo to surgery between 3-3:30 today.
[2023-02-15] MEDS: LACTATED RINGER'S SOLUTION 1,000 ML 50 ML IV (14:00)
--- NOTE | 2023-02-15 17:25 | P.ORCN_ITS ---
History of Present Illness HPI Consult date: 02/15/23 Consult reason: other Chief complaint: LOWER EXTREMITY PAIN RIGHT KNEE, Septic Bursitis Narrative: Patient is a 32-year-old with a known history of rheumatoid arthritis and tophaceous gout he has had swelling in the infrapatellar bursa of the right knee and left knee that has been chronic. Last he bumped his knee resulting in the skin to break open over the right infrapatellar bursa. He has had in creased pain since that time. He has had some white drainage. Review of Systems ROS Status of ROS 10 or more systems reviewed and unremark able except as noted in history and below PFSH PFS Surgical History (Updated 02/14/23 @ 20:23 by Swathi Barkley RN) H/O shoulder surgery ?Z98.890 - Other specified postprocedural states (ICD-10) Social History Smoking status: Never smoker Highest level of school completed/degree received: Associate degree: occupational, technical, vocational program Meds Home Medications and Allergies Home Medications Medication Instructions Recorded Confirmed Type allopurinol 300 mg tablet 600 mg PO DAILY 08/31/22 02/14/23 History alprazolam 0.5 mg tablet 0.5 mg PO TID PRN anxiety 08/31/22 02/15/23 History amlodipine 10 mg tablet 10 mg PO QDAY 08/31/22 02/15/23 History carvedilol 6.25 mg tablet 6.25 mg PO DAILY 08/31/22 02/14/23 History celecoxib 100 mg capsule 100 mg PO DAILY PRN RA flare 08/31/22 02/15/23 History clonidine HCl 0.1 mg tablet 0.1 mg PO BID 08/31/22 02/14/23 History colchicine 0.6 mg tablet 0.6 mg PO .every other 08/31/22 02/14/23 History quetiapine 50 mg tablet See Rx Instructions PO .hs 08/31/22 02/14/23 History tramadol 50 mg tablet 50 mg PO Q6H PRN pain 08/31/22 02/14/23 History oxycodone-acetaminophen 5 mg-325 1 tab PO Q6H PRN pain #10 tabs 12/11/22 02/14/23 Rx mg tablet (Percocet) gabapentin 300 mg capsule 300 mg PO TID 02/15/23 02/15/23 History (Neurontin) Allergies Allergy/AdvReac Type Severity Reaction Status Date / Time No Known Drug Allergies Allergy Verified 12/02/22 18:28 Exam Narrative Exam Narrative: Right knee has a 3 x 3 mm area where the skin is opened and there is a white chalky substance that appears consistent with tophaceous gout. No gross purulence this overlies the tibial tuberosity of the right knee. The medial aspect of his knee there is some erythema and tenderness to palpation. Constitutional Vital Signs, click to edit/add: Last Vital Signs Temp 97.6 F 02/15/23 13:50 Pulse 78 02/15/23 13:50 Resp 16 02/15/23 13:50 BP 117/72 02/15/23 13:50 Pulse Ox 93 L 02/15/23 13:50 O2 Del Method Room Air 02/15/23 13:50 Results Labs Labs: Abnormal lab results 02/14/23 02/15/23 Range/Units 17:45 03:53 WBC 14.5 H (4.0-11.0) 10^3/uL RBC 4.21 L 3.62 L (4.70-6.10) 10^6/uL Hgb 12.7 L 10.8 L (14.0-18.0) g/dL Hct 39.4 L 33.8 L (42.0-54.0) % Neut % (Auto) 78.6 H (43.0-75.0) % Lymph % (Auto) 12.7 L (20.5-60.0) % Eos % (Auto) 0.3 L (0.9-7.0) % Baso % (Auto) 0.1 L (0.2-2.0) % Neut # (Auto) 11.4 H (1.4-6.5) 10^3/uL [place] # (Auto) 1.2 H (0.3-0.8) 10^3/uL Abs Immat Gran (auto) 0.04 H (0.00-0.03) 10^3/uL ESR 109 H (<=15) mm/hr Glucose 118 H (74-106) mg/dL Uric Acid 8.4 H 8.0 H (3.5-7.2) mg/dL C-Reactive Protein 11.74 H (<=0.50) mg/dL H & H 02/14/23 02/15/23 Range/Units 17:45 03:53 Hgb 12.7 L 10.8 L (14.0-18.0) g/dL Hct 39.4 L 33.8 L (42.0-54.0) % All other labs normal. Assessment and Plan Assessment and Plan (1) Septic prepatellar bursitis of right knee: Plan Clinically does have a cellulitis. The drainage that he is having appears consistent with tophaceous gout. No obvious purulence. I have recommended continue with antibiotics and irrigation and debridement with tissue specimen for crystal analysis and cultures. Have discussed risks of this procedure and injury including but not limited to chronic draining sinus tract, need for additional surgery as well as the additional risks and the informed consent process. He understands and has elected to proceed.
--- NOTE | 2023-02-15 17:30 | PM.ORPRC ---
Procedure Note Date of procedure: 02/15/23 Pre-op diagnosis: Right leg wound Post-op diagnosis: same as pre-op Procedure: Operation performed: Right infrapatellar bursa irrigation and debridement Operative procedure: After informed consent was obtained the patient brought to the operating room where a general anesthetic was administered. The right leg was prepped and draped in the usual sterile fashion. The wound overlying the infrapatellar bursa had chalky white substance which was curetted and sent for culture as well as pathology for crystal analysis. An incision was made in a longitudinal fashion overlying the wound for 3 cm in length. No purulence was expressed. Using a combination of a rongeur and a curette all of the thickened soft tissue and white chalky substance was removed. 3 L using the pulse lavage system was then used to irrigate it. Wound was then closed over drain using 3-0 nylon suture. Debridement consisted of soft tissue. No bone or tendon was debrided. Anesthesia: General-LMA Surgeon: Juan José Coffman Estimated blood loss (mL): 5 Pathology: other Condition: stable Disposition: PACU
[2023-02-15] MEDS: TRAMADOL HCL 50 MG TABLET PO (21:22)
[2023-02-15] MEDS: QUETIAPINE FUMARATE 25 MG TABLET 50 MG PO (21:22)
[2023-02-15] MEDS: GABAPENTIN 300 MG CAPSULE PO (21:22)
[2023-02-16] MEDS: VANCOMYCIN HCL 1,250 MG in 0.9 % SODIUM CHLORIDE 250 ML 250 MG IV ×2 (02:14→11:21)
[2023-02-16] MEDS: PIPERACILLIN SODIUM/TAZOBACTAM 3.375 GM in 0.9 % SODIUM CHLORIDE 50 ML IV ×2 (03:39→13:21)
[2023-02-16] MEDS: 0.9 % SODIUM CHLORIDE 1,000 ML 100 ML IV (03:39)
[2023-02-16] MEDS: GABAPENTIN 300 MG CAPSULE PO (05:06)
[2023-02-16] MEDS: TRAMADOL HCL 50 MG TABLET PO (05:06)
[2023-02-16] MEDS: ALPRAZOLAM 0.5 MG TABLET PO (05:07)
[2023-02-16 05:10] VITALS: BP 128/80; PULSE 80; RESP 16; TEMP 36.4; O2SAT 98
[2023-02-16 05:28] LABS: Basophils Percent Auto 0.1 % (0.2-2.0); Hematocrit 34.9 % (42.0-54.0); Hemoglobin 10.9 g/dL (14.0-18.0); Immature Granulocytes Abs Auto 0.03 10^3/uL (0.00-0.03); Immature Granulocytes Pct Auto 0.3 % (0.0-0.5); Lymphocytes Absolute Auto 0.7 10^3/uL (1.2-3.8); Lymphocytes Percent Auto 7.3 % (20.5-60.0); Mean Corpuscular HGB Conc 31.2 g/dL (29.9-35.2); Mean Corpuscular Hemoglobin 29.5 pg (25.9-34.0); Mean Corpuscular Volume 94.3 fL (80.0-94.0); Mean Platelet Volume 10.4 fL (9.5-13.5); Monocytes Absolute Auto 0.5 10^3/uL (0.3-0.8); Monocytes Percent Auto 4.8 % (1.7-12.0); Neutrophils Absolute Auto 8.8 10^3/uL (1.4-6.5); Neutrophils Percent Auto 87.5 % (43.0-75.0); Platelet Count 423 10^3/uL (150-450); Red Cell Distribution Width 14.1 % (11.0-15.0); White Blood Count 10.1 10^3/uL (4.0-11.0)
[2023-02-16 05:46] LABS: Anion Gap 11.4; BUN Creatinine Ratio 8.3; Calcium 8.6 mg/dL (8.5-10.1); Carbon Dioxide 28.1 mmol/L (21.0-32.0); Chloride 108 mmol/L (98-107); Estimated GFR (African America >60 (>=60); Estimated GFR (Non-African Ame >60 (>=60); Glucose 155 mg/dL (74-106); Potassium 4.5 mmol/L (3.5-5.1); Sodium 143 mmol/L (136-145)
[2023-02-16 05:47] LABS: Erythrocyte Sedimentation Rate 112 mm/hr (<=15)
[2023-02-16 05:50] LABS: C Reactive Protein 4.35 mg/dL (<=0.50)
[2023-02-16] MEDS: CLONIDINE HCL 0.1 MG TABLET 0.100000000000000006 MG PO (08:37)
[2023-02-16] MEDS: ALLOPURINOL 300 MG TABLET 600 MG PO (08:37)
[2023-02-16] MEDS: FAMOTIDINE/PF 20 MG/2 ML VIAL IV (08:37)
[2023-02-16] MEDS: AMLODIPINE BESYLATE 5 MG TABLET 10 MG PO (08:37)
[2023-02-16] MEDS: CARVEDILOL 6.25 MG TABLET PO (08:38)
[2023-02-16 09:36] VITALS: O2SAT 98
[2023-02-16] MEDS: OXYCODONE HCL/ACETAMINOPHEN 5MG/325MG 1 TAB PO ×2 (11:26→11:45)
--- NOTE | 2023-02-16 13:32 | P.DS_ITS ---
<Statement entered by Celio John MD - 02/16/23 20:35> This documentation has been reviewed and approved. Patient seen and evaluated - agree with final dx and documentation from [facility] No additions to PE findings DS: Providers Provider Date of admission: 02/14/23 20:02 Primary care physician: LEYDI ACEVES Consults: 02/14/23 18:38 Consult to Orthopedic Surgery Routine Consulting Provider: Juan José Coffman Reason For Exam: Reason for consultation: septic bursitis, aware Has provider been notified: Yes Discharging clinician: Jayne Lake DS: Diagnosis Discharge Diagnosis (1) Septic prepatellar bursitis of right knee: DS: Summary Hospital Course Hospital Course: The patient was admitted to observation with swelling and pain of the right knee and suspected septic bursitis. He was seen in consult by orthopedic surgery, Dr. Coffman, and was taken to the OR on 02/15/2023 for a surgical I&D. The patient's postoperative course has been unremarkable. Wound cultures are growing Staph aureus but the orthopedic surgeon did not appreciate significant purulence during the procedure and believes this is more consistent with gouty arthritis. He is being discharged home in stable condition with a prescription for doxycycline for further treatment of possible staph infection of the right knee bursa. He should follow-up with Dr. Coffman on Wednesday for dressing change. Time Spent with Patient Time attestation: Total time spent providing and/or coordinating discharge services: Time spent: greater than 30 minutes Specific discharge activities: Physical exam, discussion of discharge plan, questions answered. Exam Constitutional Vital Signs, click to edit/add: Last Vital Signs Temp 97.6 F 02/16/23 05:10 Pulse 80 02/16/23 05:10 Resp 16 02/16/23 05:10 BP 128/80 02/16/23 05:10 Pulse Ox 98 02/16/23 09:36 O2 Del Method Room Air 02/16/23 09:36 Common normals: no apparent distress, oriented x3 and alert General appearance: cooperative Orientation/consciousness: Yes awake HENMT Common normals: normocephalic and head/scalp atraumatic Eye Common normals: PERRL, EOMs intact bilaterally, conjunctivae normal and no scleral icterus Neck & C-Spine Common normals: no JVD Respiratory Common normals: normal respiratory effort, no use of accessory muscles and clear to auscultation bilaterally Effort & inspection: able to speak in complete sentences and symmetric chest movement Cardio Common normals: no JVD, regular rate, regular rhythm, S1 normal heart sound, S2 normal heart sound, no murmurs and peripheral pulses 2+ throughout GI Common normals: Normal to inspection, nondistended, normoactive bowel sounds present, soft to palpation and non-tender Palpation: soft Bladder/kidney exam: bladder normal to palpation Extremity Common normals: normal to inspection, full ROM, normal capillary refill and no pedal edema General: no clubbing and no cyanosis Neuro Common normals: moves all extremities, no focal motor deficits and no sensory deficits noted Speech: speech normal Psych Common normals: mental status grossly normal and activity/motor behavior normal DS: Data Data Completed and Pending Labs on day of discharge: Labs from last 24 hours 02/16/23 02/15/23 04:49 03:53 WBC 10.1 RBC 3.70 L Hgb 10.9 L Hct 34.9 L MCV 94.3 H MCH 29.5 MCHC 31.2 RDW 14.1 Plt Count 423 MPV 10.4 Neut % (Auto) 87.5 H Lymph % (Auto) 7.3 L [place] % (Auto) 4.8 Eos % (Auto) 0.0 L Baso % (Auto) 0.1 L Neut # (Auto) 8.8 H Lymph # (Auto) 0.7 L [place] # (Auto) 0.5 Eos # (Auto) 0.0 Baso # (Auto) 0.0 Abs Immat Gran (auto) 0.03 Imm/Tot Granulo (auto) 0.3 ESR 112 H Sodium 143 Potassium 4.5 Chloride 108 H Carbon Dioxide 28.1 Anion Gap 11.4 BUN 9.0 Creatinine 1.08 Est GFR ( Amer) >60 Est GFR (Non-Af Amer) >60 BUN/Creatinine Ratio 8.3 Glucose 155 H Uric Acid 8.0 H Calcium 8.6 C-Reactive Protein 4.35 H Preliminary micro results at discharge 02/14/23 17:40 Wound Culture - Preliminary Knee,Right Staphylococcus aureus Discharge Plan Discharge Disposition: Home, Self-Care Condition: Good Discharge Medications: New oxycodone-acetaminophen [Percocet] 5-325 mg tablet 2 tab PO Q6H PRN (Reason: pain (scale score 7-10)) Qty: 10 0RF doxycycline hyclate 100 mg tablet 100 mg PO BID 10 Days Qty: 20 0RF Continued gabapentin [Neurontin] 300 mg capsule 300 mg PO TID oxycodone-acetaminophen [Percocet] 5-325 mg tablet 1 tab PO Q6H PRN (Reason: pain (scale score 4-6)) Qty: 10 0RF Rx Instructions: DX: M10.9; to be taken with regular (daily) Percocet for breakthrough pain for a maximum of 4 Percocet tabs (q6h PRN pain daily) tramadol 50 mg tablet 50 mg PO Q6H PRN (Reason: pain) quetiapine 50 mg tablet See Rx Instructions PO .hs Patient Comments: per pt. 50mg with 25mg Rx Instructions: 75 orally HS; colchicine 0.6 mg tablet 0.6 mg PO .every other clonidine HCl 0.1 mg tablet 0.1 mg PO BID celecoxib 100 mg capsule 100 mg PO DAILY PRN (Reason: RA flare) carvedilol 6.25 mg tablet 6.25 mg PO DAILY amlodipine 10 mg tablet 10 mg PO QDAY alprazolam 0.5 mg tablet 0.5 mg PO TID PRN (Reason: anxiety) allopurinol 300 mg tablet 600 mg PO DAILY Activity Restrictions/Additional Instructions: - Take 1-2 tabs of Percocet as needed for pain, avoid overuse and wean off as soon as possible Forms: Portal Instructions Follow Up Appointments: - Dr Coffman on Wednesday
--- NOTE | 2023-02-16 15:05 | PC.NURSE ---
Removed JACKSON drain, pt tolerated well. Covered with telfa, 4x4 abd, kerlix and nitza wrap. Pt knows he is to call [facility] office tomorrow and schedule appt for wednesday, leaving dressing inplace until then. Pt has no further questions at this time.
== END 2023-02-16 15:28 | disposition home or self-care (01) ==
LOC: ER 18:48 → MS 20:07
PROVIDERS: Orthopaedic Surgery; Personal Emergency Response Attendant; Admitting Provider Family Medicine; Emergency Provider Emergency Medicine; PCP Family Medicine; Visit Provider Nurse Practitioner
PROC: (CPT 01320; principal; 2023-02-15 14:55)
DX: M71.161 Other infective bursitis, right knee (principal); B34.9 Viral infection, unspecified; R19.7 Diarrhea, unspecified; M1A.9XX1 Chronic gout, unspecified, with tophus (tophi); M06.9 Rheumatoid arthritis, unspecified; I10 Essential (primary) hypertension; D50.9 Iron deficiency anemia, unspecified; R00.0 Tachycardia, unspecified; R70.0 Elevated erythrocyte sedimentation rate; L03.115 Cellulitis of right lower limb; M25.50 Pain in unspecified joint; R53.1 Weakness; R06.02 Shortness of breath; R51.9 Headache, unspecified; Z76.5 Malingerer [conscious simulation]; Z98.890 Other specified postprocedural states; Z79.899 Other long term (current) drug therapy; W22.8XXA Striking against or struck by other objects, initial encounter; A49.01 Methicillin susceptible Staphylococcus aureus infection, unspecified site
CPT/HCPCS: 01320; 27301; 36415; 73564; 80048; 84550; 85025; 85652; 86140; 87040; 87070; 87150; 87186; 87205; 96365; 96366; 96368; 96375; 96376; 99285; 99999; G0328; G0378; J1170; J2704; J3370; Q3014

== ENCOUNTER 2023-02-20 12:42 | Emergency (ER) | payer OTHER, SELFPAY ==
--- OUTSIDE RECORDS SUMMARY | 2023-02-20 12:49 | XMS_ITS | CCD ---
Author Name Unknown Address [address] [place] [address] Organization [facility] Care Team Providers Care Lisw Name Role Phone LEYDI ACEVES Primary Care Unavailable Leydi Aceves Primary Care Provider MD Leydi Aceves Primary Care Provider MD Juvenal Smith Emergency Provider [phone] MD Adam Young Admit Provider MD Hector Adam Attending Provider Leydi Aceves Primary Care Provider Leydi Aceves Primary Care Provider KETAN, DR HOLLEY Primary Care Unavailable LIBERTAD ., ZHAO Admitting Unavailable LIBERTAD ., ZHAO Consulting Unavailable ZHAO DAWSON Attending Unavailable LIBERTAD ., ZHAO Admitting Unavailable LIBERTAD Lay, ZHAO Attending Unavailable MR DOUGLAS CISNEROS Consulting Unavailable DR LEYDI ACEVES Primary Care Unavailable DIAB ., MATIAS Attending Unavailable ISIS DUFF Consulting Unavailabl e DIAB ., MATIAS Admitting Unavailable KETAN, DR HOLLYE Primary Care Unavailable LIBERTAD Lay, ZAHO Admitting Unavailable JON DAWSONID Attending Unavailable MICHEAL ACOSTA Consulting Unavailable KETAN, DR HOLLEY Primary Care Unavailable LIBERTAD Lay, ZHAO Admitting Unavailable RUFINA MARIN Consulting Unavailable LIBERTAD Lay, ZHAO Attending Unavailable KETAN, DR HOLLEY Primary Care Unavailable LIBERTAD Lay, ZHAO Consulting Unavailable NEL KING Consulting Unavailable KETAN, DR HOLLEY Primary Care Unavailable RD, DR TORRES Guillory Consulting Unavailable RD, DR TORRES Guillory Attending Unavailable DR TORRES SMITH Admitting Unavailable LIBERTAD Lay, ZHAO Consulting Unavailable KENYA ., ISIS MORALEZ Consulting Unavailrosario MASSEY ., MIKE Attending Unavailable BRYSON ., MIKE Admitting Unavailable KETAN, DR HOLLEY Primary Care Unavailable KETAN, DR HOLLEY Primary Care Unavailable HAY ., DR DUGGAN Consulting Unavailable HAY ., DR DUGGAN Attending Unavailable HAY ., DR DUGGAN Admitting Unavailable KETAN, DR HOLLEY Primary Care Unavailable REINECK, DR JOHNSON Curtis Consulting Unavailabl e REINECK, DR JOHNSON Curtis Attending Unavailabl e REINPACO, DR JOHNSON Curtis Admitting Unavailabl e KETAN, DR HOLLEY Primary Care Unavailable HAY ., DR DUGGAN Consulting Unavailable HAY ., DR DUGGAN Attending Unavailable HAY ., DR DUGGAN Admitting Unavailable [place] , [facility] Primary Care Provider DELMY BOYLE Referring Unavailable DELMY BOYLE Attending Unavailable KETAN, [facility] Unavailable DELMY BOYLE Referring Unavailable KETAN, [facility] Unavailable DELMY BOYLE Attending [facility] DELMY BOYLE Referring Unavailable KETAN, [facility] Unavailable MIRI REES Attending Unavailable Nicola Leyva Attending Unavailab Nicola Will Admitting Unavailab Leydi Thapa Primary Care Unavailable Medications Current Medications Medication Drug Class(es) Dates Sig (Normalized) Sig (Original) acamprosate calcium 333 mg delayed release oral tablet (1 source) Start: 12-10-2021 take 333 mg by mouth three times daily Acamprosate Active 333 MG PO Three times daily 45 15 December 10, 2021 12:00am acetaminophen 325 mg / oxyCODONE hydrochloride 5 mg oral tablet (1 source) Opioid Agonist Start: 12-07-2021 take 1 tablet by mouth twice daily Oxycodone-Acetamin ophen Active 1 TAB PO Twice daily December 07, 2021 12:00am ALPRAZolam 0.5 mg oral tablet (8 sources) Benzodiazepine Start: 12-07-2021 take 0.5 mg by mouth twice daily Alprazolam Active 0.5 MG PO Twice daily December 07, 2021 12:00am Start: 08-28-2019 take 1 tablet by barbara th twice daily ALPRAZolam (XANAX) 0.25 mg tablet Take 0.25 mg by mouth twice daily. 0 08/28/2019 Active Comment on above: Take 0.25 mg by mout h twice daily. amLODIPine 10 mg oral tablet (8 sources) Dihydropyridine Calcium Channel [place] Start: take 10 mg by mouth once daily Amlodipine Active 10 MG PO Daily December 07, 2021 12:00am Start: 12-25-2020 take 1 tablet by barbara th twice daily amLODIPine (NORVASC) 5 mg tablet Take 1 tablet by mouth twice daily. 180 tablet 3 12/25/2020 Active Comment on above: Take 1 tablet by barbara th twice daily. carvedilol 6.25 mg oral tablet (1 source) alpha-Adrenergic [place]ilton, beta-Adrenergic [place] Start: 12-08-19 take 6.25 mg by mouth twice daily Carvedilol Active 6.25 MG PO Twice daily December 07, 2021 12:00am celecoxib 100 mg oral capsule (1 source) Nonsteroidal Anti-inflammatory Drug Start: 12-08-19 take 100 mg by mouth twice daily Celecoxib Active 100 MG PO Twice daily December 07, 2021 12:00am cloNIDine hydrochloride 0.1 mg oral tablet (1 source) Central alpha-2 Adrenergic Agonist Start: 12-08-19 take 0.1 mg by mouth twice daily Clonidine Hcl Active 0.1 MG PO Twice daily December 07, 2021 12:00am escitalopram 5 mg oral tablet (1 source) Serotonin Reuptake Inhibitor Start: 12-11-19 take 5 mg by mouth once daily in the morning Escitalopram Oxalate Active 5 MG PO Every morning 15 15 December 10, 2021 12:00am QUEtiapine 25 mg oral tablet (1 source) Atypical Antipsychotic Start: 12-08-19 take 25 mg by mouth at bedtime Quetiapine Active 25 MG PO Bedtime December 07, 2021 12:00am tiZANidine 4 mg oral tablet (1 source) Central alpha-2 Adrenergic Agonist Start: 12-08-19 take 4 mg by mouth three times daily Tizanidine Active 4 MG PO Three times daily December 07, 2021 12:00am traMADol hydrochloride 50 mg oral tablet (8 sources) Opioid Agonist Start: 12-08-19 take 100 mg by mouth four times daily Tramadol Active 100 MG PO Four times daily December 07, 2021 12:00am Start: 06-18-2017 take 1 tablet by barbara th every eight hours as needed for pain traMADol (ULTRAM) 50 mg tablet Indications: Rheumatoid arthritis of multiple sites with negative rheumatoid factor (HCC) , Chronic tophaceous gout Take 1 tablet by mouth every 8 hours as needed for Pain for up to 4 days. for pain. 12 tablet 0 06/18/2017 Active Comment on above: Take 1 tablet by barbara th every 8 hours as needed for Pain for up to 4 days. for pain. Completed/Discontinued Medications Medication Drug Class(es) Dates Sig (Normalized) Sig (Original) allopurinol 100 mg oral tablet (18 sources) Xanthine Oxidase Inhibitor Start: 01-01-2022 End: 06-27-2022 take 3 tablets by mouth in the morning allopurinol (ZYLOPRIM) 100 mg tablet 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 TAKE 1/2 TABLET BY MOUTH IN THE MORNING WITH 300MG 45 tablet 1 06/27/2022 Active Start: 12-22-2021 End: 01-01-2022 allopurinol (ZYLOPRIM) 300 m g tablet 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 Using 300 mg and 100 mg tabs, take 350 mg qam and 300 mg qpm (total daily dose of 650 mg) 180 tablet 1 01/01/2022 Active Start: 12-07-2021 take 300 mg by mouth twice daily Allopurinol Active 300 MG PO Twice daily December 07, 2021 12:00am Start: 05-30-2021 End: 08-05-2021 allopurinol (ZYLOPRIM) 100 m g tablet 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 Take one 300 mg tablet + two and one half 100 mg tab once a day (total daily dose =550 mg daily) 225 tablet 1 08/05/2021 Active Start: 05-30-2021 End: 08-05-2021 allopurinol (ZYLOPRIM) 300 m g tablet 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 Take one 300 mg tablet + two and one half 100 mg tab once a day (total daily dose =550 mg daily) 90 tablet 1 08/05/2021 Active Comment on above: Take one 300 mg tabl et + two and one half 100 mg tab once a day (total daily dose =550 mg daily) Take one 300 mg tabl et + two 100 mg tab once a day (total daily dose =500 mg daily) TAKE 1 TABLET BY BARBARA TH TWICE A DAY Using 300 mg and 100 mg tabs, take 350 mg qam and 300 mg qpm (total daily dose of 650 mg) TAKE 1/2 TABLET BY M OUTH IN THE MORNING WITH 300MG 12 hr buPROPion hydrochloride 100 mg extended release oral tablet (7 sources) Aminoketone Start: 10-08-19 20 take 1 tablet by mouth twice daily buPROPion SR (WELLBUTRIN SR) 100 mg 12 hr tablet Take 100 mg by mouth twice daily. 0 10/08/2019 Active Comment on above: Take 100 mg by mouth twice daily. cholecalciferol 0.05 mg oral tablet (7 sources) Vitamin D Start: 12-24-19 21 take 1 tablet by mouth once daily cholecalciferol (VITAMIN D3) 50 mcg (2,000 unit) tablet Take 1 tablet by mouth once daily. 90 tablet 0 12/23/2020 Active Comment on above: Take 1 tablet by barbara th once daily. colchicine 0.6 mg oral tablet (9 sources) Start: 09-23-19 23 take 1 tablet by mouth every other day colchicine 0.6 mg tablet 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 TAKE 1 TABLET BY MOUTH EVERY OTHER DAY 90 tablet 1 09/22/2022 Active Start: 05-30-2021 End: 04-01-2022 take 1 tablet by mouth every other day colchicine 0.6 mg tablet 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 TAKE 1 TABLET BY MOUTH EVERY OTHER DAY 45 tablet 1 04/01/2022 Active Comment on above: Take 1 tablet by barbara th every other day. TAKE 1 TABLET BY BARBARA TH EVERY OTHER DAY predniSONE 5 mg oral tablet (2 sources) Start: 11-13-2022 predniSONE (DELTASONE) 5 mg tablet Take 6 tab in AM on day 1 then reduce dose by 1 tablet every day until off 21 tablet 0 11/13/2022 Active Comment on above: Take 6 tab in AM on day 1 then reduce dose by 1 tablet every day until off Problems Active Problems Problem Classification Problem Date Documented Da te Episodic/Chronic Alcohol-related disorders (1 source) Alcohol dependence with intoxication, unspecified; Translations: [ALCOHOL DEPEND W/INTOX UNS] Onset: 12-15-2021 Chronic Chronic kidney disease (1 source) Chronic kidney disease stage 3; Translations: [Stage 3 chronic kidney disease, unspecified whether stage 3a or 3b CKD (HCC)] Chronic E Codes: Natural/environment (1 source) Exposure to other specified factors, initial encounter; Translations: [EXPOSURE OTHER SPEC FACTORS INITIAL] Onset: 07-27-2022 Episodic Fever of unknown origin (1 source) Fever, unspecified; Translations: [FEVER UNSPECIFIED] Onset: 06-23-2022 Episodic Gout and other crystal arthropathies (20 sources) Chronic primary gouty arthritis; Translations: [Idiopathic chronic gout, multiple sites, with tophus (tophi)] Onset: 04-26-2017 Chronic Headache; including migraine (2 sources) Migraine; Translations: [Migraine without aura, not intractable, without status migrainosus] 09-27-2021 Chronic Mood disorders (3 sources) Recurrent major depressive episodes, moderate ; Translations: [Major depressive disorder, recurrent, moderate] Onset: 12-15-2021 12-08-2021 Chronic Other aftercare (1 source) Patient encounter status; Translations: [Other usp (current) drug therapy] Episodic Other connective tissue disease (4 sources) Other specified soft tissue disorders; Translations: [OTHER SPEC SOFT TISSUE DISORDERS] Onset: 06-30-2022 Episodic Other connective tissue disease (3 sources) Pain in right arm; Translations: [PAIN IN RIGHT ARM] Onset: 05-31-2022 Episodic Other nervous system disorders (7 sources) Chronic pain; Translations: [Other chronic pain] Onset: 04-26-2017 04-26-2017 Chronic Other non-traumatic joint disorders (1 source) Polyarthritis, unspecified; Translations: [POLYARTHRITIS UNSPECIFIED] Onset: 04-02-2022 Chronic Other non-traumatic joint disorders (3 sources) Pain in left elbow; Translations: [PAIN IN LEFT ELBOW] Onset: 06-20-2022 Episodic Rheumatoid arthritis and related disease (9 sources) Rheumatoid arthritis of multiple joints; Translations: [Rheumatoid arthritis without rheumatoid factor, multiple sites] Onset: 05-10-2017 05-10-2017 Chronic Skin and subcutaneous tissue infections (1 source) Cellulitis of left lower limb; Translations: [CELLULITIS OF LEFT LOWER LIMB] Onset: 07-27-2022 Episodic Substance-related disorders (11 sources) Nicotine dependence; Translations: [Nicotine dependence, unspecified, uncomplicated] Onset: 04-26-2017 04-26-2017 Chronic Superficial injury; contusion (1 source) Unspecified superficial injury of left lower leg, initial encounter; Translations: [UNS SUP INJURY LT LOW LEG INITIAL] Onset: 07-27-2022 Episodic Unclassified (1 source) CONTACT W/AND (SUSP) EXPOS COVID-19; Translations: [CONTACT W/AND (SUSP) EXPOS COVID-19] Onset: 02-03-2022 Unclassified (3 sources) LOW BACK PAIN, UNSPECIFIED; Translations: [LOW BACK PAIN, UNSPECIFIED] Onset: 01-16-2022 Past or Other Problems Problem Classification Problem Date Documented Da te Episodic/Chronic E Codes: Unspecified (1 source) Blood alcohol level of 240 mg/100 ml or more; Translations: [BLOOD ALCOHOL LV 240 MG/100 ML/MORE] Onset: 12-15-2021 Episodic Malaise and fatigue (3 sources) Weakness; Translations: [WEAKNESS] Onset: 01-31-2022 Episodic Other aftercare (2 sources) Other buttermaker (current) drug therapy; Translations: [OTH [facility] CURRENT DRUG THERAPY] Onset: 06-30-2022 Episodic Other connective tissue disease (1 source) Other muscle spasm; Translations: [OTHER MUSCLE SPASM] Onset: 10-21-2021 Episodic Other nervous system disorders (1 source) Anesthesia of skin; Translations: [ANESTHESIA OF SKIN] Onset: 09-30-2021 Episodic Other nervous system disorders (1 source) Paresthesia of skin; Translations: [PARESTHESIA OF SKIN] Onset: 09-30-2021 Episodic Other non-traumatic joint disorders (4 sources) Pain in unspecified joint; Translations: [PAIN IN UNSPECIFIED JOINT] Onset: 02-03-2022 Episodic Spondylosis; intervertebral disc disorders; other back problems (7 sources) Muscle spasm of back; Translations: [Cervicalgia] Onset: 09-30-2021 Episodic Suicide and intentional self-inflicted injury (4 sources) Suicidal ideations; Translations: [SUICIDAL IDEATIONS] Onset: 12-06-2021 Episodic Unclassified (1 source) LOW BACK PAIN, UNSPECIFIED; Translations: [LOW BACK PAIN, UNSPECIFIED] Onset: 01-14-2022 Viral infection (1 source) Viral infection, unspecified; Translations: [VIRAL INFECTION UNSPECIFIED] Onset: 02-03-2022 Episodic Results Test Name Value Interpretation Reference Range Facility [facility] 11-13-2022 CNPN Telephone (ORQ) -- NICK WRAY ([id number]) 1990 M Date Time Provider Department 11/13/22 DELMY BOYLE ORQ During your visit today, we recorded the following information about you: Madonna Mitchell 11/13/2022 12:07 PM Signed Nick Wray is calling Delmy Boyle MD today stating that his PCP that is with [facility] is having technical difficulties and that their version of mychart is down along with the phone system. He needs a refill of a tapered prednisone sent to [facility] in [place], . Please advise. Patient has been identified by name and birthdate. Duration of symptoms: N/A Person calling: self Call patient at: at home [phone] (home) [phone] (cell) Was an appointment scheduled: No Closing statement: Results or non-symptom based questions: Thank you for calling [facility], your call will be returned within the next business day. Delmy Lema MD 11/13/2022 7:10 PM Signed The following approved medication requests have been transmitted electronically. Requested Prescriptions Signed Prescriptions Disp Refills predniSONE (DELTASONE) 5 mg tablet 21 tablet 0 Sig: Take 6 tab in AM on day 1 then reduce dose by 1 tablet every day until off Authorizing Provider: DELMY BOYLE MD Allergies As of Date: 11/13/2022 (No Known Allergies) Date Reviewed: 08/14/2022 Reviewed by: Caren Vogt LPN - Fully Assessed Reason for Visit: Patient Request [[id number]] Order(s):predniSONE (DELTASONE) 5 mg tabletTake 6 tab in AM on day 1 then reduce dose by 1 tablet every day until offDisp: 21 tabletRfl: 0 Prescriptions as of 11/13/2022 - predniSONE (DELTASONE) 5 mg tablet Take 6 tab in AM on day 1 then reduce dose by 1 tablet every day until off - colchicine 0.6 mg tablet TAKE 1 TABLET BY MOUTH EVERY OTHER DAY - allopurinol (ZYLOPRIM) 100 mg tablet TAKE 1/2 TABLET BY MOUTH IN THE MORNING WITH 300MG - allopurinol (ZYLOPRIM) 300 mg tablet Using 300 mg and 100 mg tabs, take 350 mg qam and 300 mg qpm (total daily dose of 650 mg) - amLODIPine (NORVASC) 5 mg tablet Take 1 tablet by mouth twice daily. - cholecalciferol (VITAMIN D3) 50 mcg (2,000 unit) tablet Take 1 tablet by mouth once daily. - ALPRAZolam (XANAX) 0.25 mg tablet Take 0.25 mg by mouth twice daily. - buPROPion SR (WELLBUTRIN SR) 100 mg 12 hr tablet Take 100 mg by mouth twice daily. - traMADol (ULTRAM) 50 mg tablet Take 1 tablet by mouth every 8 hours as needed for Pain for up to 4 days. for pain. Problem List As Of Date 11/13/2022 Noted Resolved Rheumatoid arthritis flare (HCC) [M06.9] 04/25/2017 05/10/2017 Nicotine use disorder, F17.2 [F17.200] 04/26/2017 Gout [M10.9] 04/26/2017 Chronic pain [G89.29] 04/26/2017 Rheumatoid arthritis of multiple sites with neg*05/10/2017 Idiopathic chronic gout of multiple sites with *01/18/2018 Prescriptions ordered this encounter Disp Refills Start End PREDNISONE 5 MG TABLET 21 t* 0 11/13/2022 Sig: Take 6 tab in AM on day 1 then reduce dose by 1 tablet every day until off Encounter Status:Closed by DELMY BOYLE on 11/13/22 [facility] CNOVon 08-14-2022 CNOV Office Visit (RHEUAV ) -- NICK WRAY ([id number]) 1990 M Date Time Provider Department 08/14/22 11:40 AM DELMY BOYLE During your visit today, we recorded the following information about you: Pulse Respiration Blood pressure Weight 94/minute 16/minute 132/93 99.8 kg Delmy Boyle MD 08/14/2022 5:15 PM Signed DX: chronic tophaceous gout, 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 Polyarthritis with several nodules mainly over lower extremity joints. A thick white discharge has drained from nodules on his knee and foot in the past. Diagnosed with gout at the age of 19 by his PCP after he presented with pain, swelling, warmth and erythema of the great toe. Treated with allopurinol but he would still have arthritic flares once every 4 months[address] gas plumbing inspector Dr. Jaime in [place] who did diagnostic knee aspiration which according to patient was positive for uric acid crystals. Treated with steroids and continued allopurinol. He has not seen Dr. Jaime since 2014. In 2014, he was hospitalized in [place] for acute polyarthritis. Saw gas plumbing inspector while in hospital who told him that he possibly had RA. Discharged on steroids. His PCP switched him from allopurinol to Uloric Jan 2017. He also takes colchicine prn. No reduction in frequency or severity of his joint flares with Uloric. In 2017, he has been hospitalized 7-8 times for acute joint flares. Each time he is treated with steroids. Hospitalized at [facility] Apr 2017 for acute flare of inflammatory arthritis of both knees and ankles. Improved with IV and oral steroids. Discharged on 9 day course of prednisone (starting dose of 50 mg daily). Noted to have synovitis on exam. EMS lasting less than 30 minutes. Has gel phenomenon with periods of inactivity. Sister diagnosed with lupus and fibromyalgia. Several maternal uncles (several) with gout. Cousin was diagnosed with RA at 10 years of age. THERAPIES/MEDICATIONS TRIED colchicine uric acid lowering agents: Uloric, allopurinol Tramadol Intermittent oral/IM glucocorticosteroids NSAIDs: ibuprofen, Aleve, indocin Injections in joints: none Injections in spine: none ASSESSMENT: Crystal proven gout. Other PMH: possible seronegative RA, CKD On allopurinol 400 mg qam and 300 qpm + colchicine 0.6 mg every other day Methotrexate 20 mg weekly held June 2019 due to anemia and elevated Cr. PLAN: 1. TOPHACEOUS GOUT -off Uloric with increase in his SUA from 5.7 to 11.1 mg/dL. He is unable to afford OOP costs of Uloric. -he has starting drinking ETOH again and has has a couple of gout flares. SUA elevated. He was advised to curtail/abstain from ETOH and sugary beverages. Will recheck SUA in 4 weeks and if it continues to be elevated, adjustment in his allopurinol dose may be necessary. -in meantime, continue allopurinol and colchicine at the present dose -I asked that he have labs done at least 3-4 days prior to next appointment (lab orders in EMR) 2. POSSIBLE SERONEGATIVE RA -no synovitis on exam -hold off on DMARDs for now. 3. LEFT SHOULDER ROTATOR CUFF TEAR/ADHESIVE CAPSULITIS/LABRAL TEAR -had steroid injection of the left shoulder. It relieved his pain for 1 week. -12/2020: he had left shoulder MRI that showed full thickeness tear of supraspinatus and infraspinatus tendons , findings c/w adhesive capsulitis and diffuse labral tearing. -01/30/2021: saw orthopaedist regarding his left shoulder. Surgery was recommended. -Mar 19: had left shoulder surgery by Dr. Tc Coffey at [facility]. No post op complications. Currently on PT - still working on shoulder ROM. 4. GENERAL HEALTH MAINTENANCE -continue follow up on his CKD with nephrology -he will follow up with his PCP for his general health issues RTC in 7 mon, sooner if needed INTERVAL HISTORY -at [facility], he was advised to increase allopurinol from 300 mg BID to 350 mg qam and 300 mg qpm but he is actually taking allopurinol 400 mg qam and 300 qpm instead. Tolerating this higher dose without issues. -He stopped drinking Nov 2021. He started drinking some since JOSY. -he had 2 flares of joint pain and swelling over the last 6 months. Affected joints hands/wrists/elbows/toes. He was given depomedrol injection and short course of steroids by PCP and symptoms resolved after a couple of days. Last flare was 5-6 weeks ago. He was abstaining from alcohol back in Nov 2021 but he admits that he started drinking ETOH again although not as much as he did prior. 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 Swollen joints: as above EMS: lasting 30 min (more content not included)... Normal [facility] ALT SerPl-cCncon 08-12-2022 ALT [Catalytic activity/Vol] 30 U/L Normal 10-54 [facility] Comment on above: Order Comment: Speci men Type: BLOOD SPECIMEN Ordering Facility: [facility] Address: [address] [place] [address] Performed By: #### 1 751-7, 3084-1, 1919-09, 1741-07 #### [facility] CLIA [id number] [address] [place] [address] AST SerPl-cCncon 08-12-2022 AST [Catalytic activity/Vol] 28 U/L Normal 14-40 [facility] Comment on above: Order Comment: Speci men Type: BLOOD SPECIMEN Ordering Facility: [facility] Address: [address] [place] [address] Performed By: #### 1 751-7, 3084-1, 1919-09, 1741-07 #### [facility] CLIA [id number] [address] [place] [address] Albumin SerPl-mCncon 08-12- 023 Albumin [Mass/Vol] 4.5 g/dL Normal 3.9-4.9 [facility] Comment on above: Order Comment: Speci men Type: BLOOD SPECIMEN Ordering Facility: [facility] Address: [address] [address] Performed By: #### 1 751-7, 3084-1, 1920-8, 1742-6 #### [facility] CLIA [id number] [address] [place] [address] CBC W Auto Differential pane l (Bld)on 08-12-2022 Basophils (Bld) [#/Vol] 0.00 10*3/uL Normal <0.11 [facility] Comment on above: Order Comment: Speci men Type: BLOOD SPECIMEN Ordering Facility: [facility] Address: [address] [address] Performed By: #### 5 7021-8 #### [facility] CLIA [id number] [address] [place] [address] LAB CLIA [id number] [address] [place] [address] [place] Basophils/100 WBC (Bld) 0.0 % Normal [facility] Comment on above: Order Comment: Speci men Type: BLOOD SPECIMEN Ordering Facility: [facility] Address: [address] [address] Performed By: #### 5 7021-8 #### [facility] CLIA [id number] [address] [place] [address] LAB CLIA [id number] [address] [place] [address] [place] Differential cell count method Nom (Bld) Manual Normal [facility] Comment on above: Order Comment: Speci men Type: BLOOD SPECIMEN Ordering Facility: [facility] Address: [address] [address] Performed By: #### 5 7021-8 #### [facility] CLIA [id number] [address] [place] [address] LAB CLIA [id number] [address] [place] [address] [place] Eosinophils (Bld) [#/Vol] 0.08 10*3/uL Normal <0.46 [facility] Comment on above: Order Comment: Speci men Type: BLOOD SPECIMEN Ordering Facility: [facility] Address: [address] [place] [address] Performed By: #### 5 7021-8 #### [facility] CLIA [id number] [address] [place] [address] LAB CLIA [id number] [address] [place] [address] [place] Eosinophils/100 WBC (Bld) 0.9 % Normal [facility] Comment on above: Order Comment: Speci men Type: BLOOD SPECIMEN Ordering Facility: [facility] Address: [address] [place] [address] Performed By: #### 5 7021-8 #### [facility] CLIA [id number] [address] [place] [address] LAB CLIA [id number] [address] [place] [address] [place] Erythrocyte distribution width (RBC) [Ratio] 14.6 % Normal 11.5-15.0 [facility] Comment on above: Order Comment: Speci men Type: BLOOD SPECIMEN Ordering Facility: [facility] Address: [address] [place], [place] [id number] Performed By: #### 5 7021-8 #### [facility] CLIA [id number] [address] [place] [address] LAB CLIA [id number] [address] [place] [address] [place] Hematocrit (Bld) [Volume fraction] 45.7 % Normal 39.0-51.0 [facility] Comment on above: Order Comment: Speci men Type: BLOOD SPECIMEN Ordering Facility: [facility] Address: [address] [place], [place] [id number] Performed By: #### 5 7021-8 #### [facility] CLIA [id number] [address] [place] [address] LAB CLIA [id number] [address] [place] [address] [place] Hemoglobin (Bld) [Mass/Vol] 15.3 g/dL Normal 13.0-17.0 [facility] Comment on above: Order Comment: Speci men Type: BLOOD SPECIMEN Ordering Facility: [facility] Address: [address] [place] [address] Performed By: #### 5 7021-8 #### [facility] CLIA [id number] [address] [place] [address] LAB CLIA [id number] [address] [place] [address] [place] Lymphocytes (Bld) [#/Vol] 3.27 10*3/uL Normal 1.00-4.00 [facility] Comment on above: Order Comment: Speci men Type: BLOOD SPECIMEN Ordering Facility: [facility] Address: [address] [place] [address] Performed By: #### 5 7021-8 #### [facility] CLIA [id number] [address] [place] [address] LAB CLIA [id number] [address] [place] [address] [place] Lymphocytes/100 WBC (Bld) 37.7 % Normal [facility] Comment on above: Order Comment: Speci men Type: BLOOD SPECIMEN Ordering Facility: [facility] Address: [address] [place] [address] Performed By: #### 5 7021-8 #### [facility] CLIA [id number] [address] [place] [address] LAB CLIA [id number] [address] [place] [address] [place] MCH (RBC) [Entitic mass] 29.4 pg Normal 26.0-34.0 [facility] Comment on above: Order Comment: Speci men Type: BLOOD SPECIMEN Ordering Facility: [facility] Address: [address] [place] [address] Performed By: #### 5 7021-8 #### [facility] CLIA [id number] [address] [place] [address] LAB CLIA [id number] [address] [place] [address] [place] MCHC (RBC) [Mass/Vol] 33.5 g/dL Normal 30.5-36.0 [facility] Comment on above: Order Comment: Speci men Type: BLOOD SPECIMEN Ordering Facility: [facility] Address: [address] [place] [address] Performed By: #### 5 7021-8 #### [facility] CLIA [id number] [address] [place] [address] LAB CLIA [id number] [address] [place] [address] [place] MCV (RBC) [Entitic vol] 87.9 fL Normal 80.0-100.0 [facility] Comment on above: Order Comment: Speci men Type: BLOOD SPECIMEN Ordering Facility: [facility] Address: [address] [place], [place] [id number] Performed By: #### 5 7021-8 #### [facility] CLIA [id number] [address] [place] [address] LAB CLIA [id number] [address] [place] [address] [place] Monocytes (Bld) [#/Vol] 0.23 10*3/uL Normal <0.87 [facility] Comment on above: Order Comment: Speci men Type: BLOOD SPECIMEN Ordering Facility: [facility] Address: [address] [place], [place] [id number] Performed By: #### 5 7021-8 #### [facility] CLIA [id number] [address] [place] [address] LAB CLIA [id number] [address] [place] [address] [place] Monocytes/100 WBC (Bld) 2.6 % Normal [facility] Comment on above: Order Comment: Speci men Type: BLOOD SPECIMEN Ordering Facility: [facility] Address: [address] Performed By: #### 5 7021-8 #### [facility] CLIA [id number] [address] [place] [address] LAB CLIA [id number] [address] [place] [address] [place] Neutrophils (Bld) [#/Vol] 5.10 10*3/uL Normal 1.45-7.50 [facility] Comment on above: Order Comment: Speci men Type: BLOOD SPECIMEN Ordering Facility: [facility] Address: [address] [place] [address] Performed By: #### 5 7021-8 #### [facility] CLIA [id number] [address] [place] [address] LAB CLIA [id number] [address] [place] [address] [place] Neutrophils/100 WBC (Bld) 58.8 % Normal [facility] Comment on above: Order Comment: Speci men Type: BLOOD SPECIMEN Ordering Facility: [facility] Address: [address] [place] [address] Performed By: #### 5 7021-8 #### [facility] CLIA [id number] [address] [place] [address] LAB CLIA [id number] [address] [place] [address] [place] Nucleated RBC (Bld) [#/Vol] 10*3/uL Normal <0.01 [facility] Comment on above: Order Comment: Speci men Type: BLOOD SPECIMEN Ordering Facility: [facility] Address: [address] [place] [address] Performed By: #### 5 7021-8 #### [facility] CLIA [id number] [address] [place] [address] LAB CLIA [id number] [address] [place] [address] [place] Nucleated RBC/100 WBC (Bld) [Ratio] 0.0 /100 WBC Normal [facility] Comment on above: Order Comment: Speci men Type: BLOOD SPECIMEN Ordering Facility: [facility] Address: [address] [place] [address] Performed By: #### 5 7021-8 #### [facility] CLIA [id number] [address] [place] [address] LAB CLIA [id number] [address] [place] [address] [place] Platelet mean volume (Bld) [Entitic vol] 10.1 fL Normal 9.0-12.7 [facility] Comment on above: Order Comment: Speci men Type: BLOOD SPECIMEN Ordering Facility: [facility] Address: [address] [place], [place] [address] Performed By: #### 5 7021-8 #### [facility] CLIA [id number] [address] [place] [address] LAB CLIA [id number] [address] [place] [address] [place] Platelets (Bld) [#/Vol] 289 10*3/uL Normal 150-400 [facility] Comment on above: Order Comment: Speci men Type: BLOOD SPECIMEN Ordering Facility: [facility] Address: [address] [place], [place] [address] Performed By: #### 5 7021-8 #### [facility] CLIA [id number] [address] [place] [address] LAB CLIA [id number] [address] [place] [address] [place] Platelets Estimate (Bld) [#/Vol] Adequate Normal [facility] Comment on above: Order Comment: Speci men Type: BLOOD SPECIMEN Ordering Facility: [facility] Address: [address] [place] [address] Performed By: #### 5 7021-8 #### [facility] CLIA [id number] [address] [place] [address] LAB CLIA [id number] [address] [place] [address] [place] RBC (Bld) [#/Vol] 5.20 10*6/uL Normal 4.20-6.00 [facility] Comment on above: Order Comment: Speci men Type: BLOOD SPECIMEN Ordering Facility: [facility] Address: [address] [place], [place] [address] Performed By: #### 5 7021-8 #### [facility] CLIA [id number] [address] [place] [address] LAB CLIA [id number] [address] [place] [address] [place] RED CELL MORPH Reviewed: unremarkable Normal [facility] Comment on above: Order Comment: Speci men Type: BLOOD SPECIMEN Ordering Facility: [facility] Address: [address] [place] [address] Performed By: #### 5 7021-8 #### [facility] CLIA [id number] [address] [place] [address] LAB CLIA [id number] [address] [place] [address] [place] WBC (Bld) [#/Vol] 8.67 10*3/uL Normal 3.70-11.00 [facility] Comment on above: Order Comment: Speci men Type: BLOOD SPECIMEN Ordering Facility: [facility] Address: [address] [address] Performed By: #### 5 7021-8 #### [facility] CLIA [id number] [address] [place], [place] [address] [facility] CLIA [id number] [address] [facility] [id number] [place] [address] [place] CREATININE BLDon 08-12-2022 Creatinine [Mass/Vol] 1.28 mg/dL High 0.73-1.22 [facility] Comment on above: Order Comment: Speci men Type: BLOOD SPECIMEN Ordering Facility: [facility] Address: [address] [address] Performed By: #### C RET1 #### [facility] CLIA [id number] [address] [place] [address] ESTIMATED GLOMERULAR FILTRATION RATE 76 mL/min/1.73m??? Normal >=60 [facility] Comment on above: Order Comment: Speci men Type: BLOOD SPECIMEN Ordering Facility: [facility] Address: [address] [address] Result Comment: Jyoti mated Glomerular Filtration Rate (eGFR) is calculated using the 2020 CKD-EPI creatinine equation. This equation utilizes serum creatinine, sex, and age as parameters. The creatinine assay has traceable calibration to isotope dilution-mass spectrometry. Refer to KDIGO guidelines for clinical interpretation. In patients with unstable renal function, e.g. those with acute kidney injury, the eGFR may not accurately reflect actual GFR. Performed By: #### C RET1 #### [facility] CLIA [id number] [address] [place], [place] [address] CRP SerPl-mCncon 08-12-2022 CRP [Mass/Vol] mg/L Normal <0.9 [facility] Comment on above: Order Comment: Speci men Type: BLOOD SPECIMEN Ordering Facility: [facility] Address: [address] [address] Performed By: #### 1 988-5 #### [facility] CLIA [id number] [address] [place], [place] [address] [place] ESR Westergren method (Bld) [Velocity]on 08-12-2022 ESR (Bld) [Velocity] 5 mm/h Normal 0-15 [facility] Comment on above: Order Comment: Speci men Type: BLOOD SPECIMEN Ordering Facility: [facility] Address: [address] [place] [address] Performed By: #### 4 537-7 #### [facility] CLIA [id number] [address] [place] [address] [place] Urate SerPl-mCncon 3 Urate [Mass/Vol] 9.2 mg/dL High 4.0-8.1 [facility] Comment on above: Order Comment: Speci men Type: BLOOD SPECIMEN Ordering Facility: [facility] Address: [address] [place] [address] Performed By: #### 1 751-7, 3084-1, 1920-8, 1742-6 #### [facility] CLIA [id number] [address] [place] [address] CBC AUTO DIFFon 06-28-2022 BASO # 0.0 103/ul Normal 0.0-0.1 [facility] Comment on above: Performed By: #### C BC #### [facility] [address] [place] [address] Dr. Nilay Gibbs Basophils/100 WBC (Bld) 0.2 % Normal 0.2-2.0 [facility] Comment on above: Performed By: #### C BC #### [facility] [address] [place] [address] Dr. Nilay Gibbs EO # 0.0 103/ul Normal 0.0-0.7 [facility] Comment on above: Performed By: #### C BC #### [facility] [address] [place] [address] Dr. Nilay Gibbs Eosinophils/100 WBC (Bld) 0.3 % Critically low 0.9-7.0 [facility] Comment on above: Performed By: #### C BC #### [facility] [address] [place] [address] Dr. Nilay Gibbs Erythrocyte distribution width (RBC) [Ratio] 13.9 % Normal 11.0-15.0 [facility] Comment on above: Performed By: #### C BC #### [facility] [address] [place] [address] Dr. Nilay Gibbs Hematocrit (Bld) [Volume fraction] 39.8 % Critically low 42.0-54.0 [facility] Comment on above: Performed By: #### C BC #### [facility] [address] [place] [address] Dr. Nilay Gibbs Hemoglobin (Bld) [Mass/Vol] 13.2 g/dL Critically low 14.0-18.0 [facility] Comment on above: Performed By: #### C BC #### [facility] [address] [place] [address] Dr. Nilay Gibbs IG # 0.04 10e3/ul Critically high 0.00-0.03 [facility] Comment on above: Performed By: #### C BC #### [facility] [address] [place] [address] Dr. Nilay Gibbs IG % 0.4 % Normal 0.0-0.5 [facility] Comment on above: Performed By: #### C BC #### [facility] [address] [place] [address] Dr. Nilay Gibbs LYMPH # 1.8 103/ul Normal 1.2-3.8 [facility] Comment on above: Performed By: #### C BC #### [facility] [address] [place] [address] Dr. Nilay Gibbs Lymphocytes/100 WBC (Bld) 17.5 % Critically low 20.5-60.0 [facility] Comment on above: Performed By: #### C BC #### [facility] [address] [place] [address] Dr. Nilay Gibbs MANUAL DIFF REQ NO Normal [facility] Comment on above: Performed By: #### C BC #### [facility] [address] [place] [address] Dr. Nilay Gibbs MCH (RBC) [Entitic mass] 29.3 pg Normal 25.9-34.0 [facility] Comment on above: Performed By: #### C BC #### [facility] [address] [place] [address] Dr. Nilay Gibbs MCHC (RBC) [Mass/Vol] 33.2 g/dL Normal 29.9-35.2 [facility] Comment on above: Performed By: #### C BC #### [facility] [address] [place] [address] Dr. Nilay Gibbs MCV (RBC) [Entitic vol] 88.4 fL Normal 80.0-94.0 [facility] Comment on above: Performed By: #### C BC #### [facility] [address] [place] [address] Dr. Nilay Gibbs MONO # 0.9 103/ul Critically high 0.3-0.8 [facility] Comment on above: Performed By: #### C BC #### [facility] [address] [place] [address] Dr. Nilay Gibbs Monocytes/100 WBC (Bld) 9.4 % Normal 1.7-12.0 [facility] Comment on above: Performed By: #### C BC #### [facility] [address] [place] [address] Dr. Nilay Gibbs NEUT # 7.2 103/ul Critically high 1.4-6.5 [facility] Comment on above: Performed By: #### C BC #### [facility] [address] [place] [address] Dr. Nilay Gibbs Neutrophils/100 WBC (Bld) 72.2 % Normal 43.0-75.0 [facility] Comment on above: Performed By: #### C BC #### [facility] [address] [place] [address] Dr. Nilay Gibbs Platelet mean volume (Bld) [Entitic vol] 9.6 fL Normal 9.5-13.5 [facility] Comment on above: Performed By: #### C BC #### [facility] [address] [place] [address] Dr. Nilay Gibbs PLT 356 103/ul Normal 150-450 [facility] Comment on above: Performed By: #### C BC #### [facility] [address] [place] [address] Dr. Nilay Gibbs RBC 4.50 106/ul Critically low 4.70-6.10 [facility] Comment on above: Performed By: #### C BC #### [facility] [address] [place] [address] Dr. Nilay Gibbs WBC 10.0 103/ul Normal 4.0-11.0 [facility] Comment on above: Performed By: #### C BC #### [facility] [address] [place] [address] Dr. Nilay Gibbs PROF CHEM 8 (BAS METB)on Anion gap [Moles/Vol] 12.4 mmol/L Normal [facility] Comment on above: Performed By: #### A MM #### [facility] [address] [place] [address] Dr. Nilay Gibbs Calcium [Mass/Vol] 9.4 mg/dL Normal 8.5-10.1 [facility] Comment on above: Performed By: #### A MM #### [facility] [address] [place] [address] Dr. Nilay Gibbs Chloride [Moles/Vol] 105 mmol/L Normal 98-107 [facility] Comment on above: Performed By: #### A MM #### [facility] [address] [place] [address] Dr. Nilay Gibbs CO2 [Moles/Vol] 25.6 mmol/L Normal 21.0-32.0 [facility] Comment on above: Performed By: #### A MM #### [facility] [address] [place] [address] Dr. Nilay Gibbs Creatinine [Mass/Vol] 1.18 mg/dL Normal 0.70-1.30 [facility] Comment on above: Performed By: #### A MM #### [facility] [address] [place] [address] Dr. Nilay Gibbs EGFR-AF [place] >60 Normal >=60 [facility] Comment on above: Performed By: #### A MM #### [facility] [address] [place] [address] Dr. Nilay Gibbs EGFR-NON AF [place] >60 Normal >=60 [facility] Comment on above: Performed By: #### A MM #### [facility] [address] [address] [address] Nilay Gibbs Glucose [Mass/Vol] 125 mg/dL Critically high 74-106 [facility] Comment on above: Performed By: #### A MM #### [facility] [address] [place] [address] Dr. Nilay Gibbs Potassium [Moles/Vol] 4.3 mmol/L Normal 3.5-5.1 [facility] Comment on above: Performed By: #### A MM #### [facility] [address] [place] [address] Dr. Nilay Gibbs Sodium [Moles/Vol] 139 mmol/L Normal 136-145 [facility] Comment on above: Performed By: #### A MM #### [facility] [address] [place] [address] Dr. Nilay Gibbs Urea nitrogen [Mass/Vol] 15.0 mg/dL Normal 7.0-18.0 [facility] Comment on above: Performed By: #### A MM #### [facility] [address] [place] [address] Dr. Nilay Gibbs Urea nitrogen/Creatinine [Mass ratio] 12.7 mg/mg Normal [facility] Comment on above: Performed By: #### A MM #### [facility] [address] [place] [address] Dr. Nilay Gibbs CBC AUTO DIFFon 06-20-2022 BASO # 0.0 103/ul Normal 0.0-0.1 [facility] Comment on above: Performed By: #### A MM #### [facility] [address] [address] [address] Nilay Gibbs Basophils/100 WBC (Bld) 0.2 % Normal 0.2-2.0 [facility] Comment on above: Performed By: #### A MM #### [facility] [address] [place] [address] Dr. Nilay Gibbs EO # 0.0 103/ul Normal 0.0-0.7 [facility] Comment on above: Performed By: #### A MM #### [facility] [address] [place] [address] Dr. Nilay Gibbs Eosinophils/100 WBC (Bld) 0.3 % Critically low 0.9-7.0 [facility] Comment on above: Performed By: #### A MM #### [facility] [address] [place] [address] Dr. Nilay Gibbs Erythrocyte distribution width (RBC) [Ratio] 14.3 % Normal 11.0-15.0 [facility] Comment on above: Performed By: #### A MM #### [facility] [address] [place] [address] Dr. Nilay Gibbs Hematocrit (Bld) [Volume fraction] 39.3 % Critically low 42.0-54.0 [facility] Comment on above: Performed By: #### A MM #### [facility] [address] [place] [address] Dr. Nilay Gbibs Hemoglobin (Bld) [Mass/Vol] 13.1 g/dL Critically low 14.0-18.0 [facility] Comment on above: Performed By: #### A MM #### [facility] [address] [place] [address] Dr. Nilay Gibbs IG # 0.03 10e3/ul Normal 0.00-0.03 [facility] Comment on above: Performed By: #### A MM #### [facility] [address] [place] [address] Dr. Nilay Gibbs IG % 0.3 % Normal 0.0-0.5 [facility] Comment on above: Performed By: #### A MM #### [facility] [address] [place] [address] Dr. Nilay Gibbs LYMPH # 1.7 103/ul Normal 1.2-3.8 [facility] Comment on above: Performed By: #### A MM #### [facility] [address] [place] [address] Dr. Nilay Gibbs Lymphocytes/100 WBC (Bld) 14.5 % Critically low 20.5-60.0 [facility] Comment on above: Performed By: #### A MM #### [facility] [address] [place] [address] Dr. Nilay Gibbs MANUAL DIFF REQ NO Normal [facility] Comment on above: Performed By: #### A MM #### [facility] [address] [place] [address] Dr. Nilay Gibbs MCH (RBC) [Entitic mass] 29.2 pg Normal 25.9-34.0 [facility] Comment on above: Performed By: #### A MM #### [facility] [address] [place] [address] Dr. Nilay Gibbs MCHC (RBC) [Mass/Vol] 33.3 g/dL Normal 29.9-35.2 [facility] Comment on above: Performed By: #### A MM #### [facility] [address] [place] [address] Dr. Nilay Gibbs MCV (RBC) [Entitic vol] 87.5 fL Normal 80.0-94.0 [facility] Comment on above: Performed By: #### A MM #### [facility] [address] [place] [address] Dr. Nilay Gibbs MONO # 1.3 103/ul Critically high 0.3-0.8 [facility] Comment on above: Performed By: #### A MM #### [facility] [address] [place] [address] Dr. Nilay Gibbs Monocytes/100 WBC (Bld) 10.9 % Normal 1.7-12.0 [facility] Comment on above: Performed By: #### A MM #### [facility] [address] [place] [address] Dr. Nilay Gibbs NEUT # 8.7 103/ul Critically high 1.4-6.5 [facility] Comment on above: Performed By: #### A MM #### [facility] [address] [place] [address] Dr. Nilay Gibbs Neutrophils/100 WBC (Bld) 73.8 % Normal 43.0-75.0 [facility] Comment on above: Performed By: #### A MM #### [facility] [address] [place] [address] Dr. Nilay Gibbs Platelet mean volume (Bld) [Entitic vol] 10.9 fL Normal 9.5-13.5 [facility] Comment on above: Performed By: #### A MM #### [facility] [address] [place] [address] Dr. Nilay Gibbs PLT 171 103/ul Normal 150-450 [facility] Comment on above: Performed By: #### A MM #### [facility] [address] [place] [address] Dr. Nilay Gibbs RBC 4.49 106/ul Critically low 4.70-6.10 [facility] Comment on above: Performed By: #### A MM #### [facility] [address] [place] [address] Dr. Nilay Gibbs WBC 11.7 103/ul Critically high 4.0-11.[address] [facility] Comment on above: Performed By: #### A MM #### [facility] [address] [place] [address] Dr. Nilay Gibbs CRPon 06-20-2022 CRP 25.4 mg/dL Critically high <=1.0 [facility] Comment on above: Performed By: #### C RP, CMP #### [facility] [address] [place] [address] Dr. Nilay Gibbs CULTURE BLOODon 06-20-2022 Microscopic examination of blood, culture Culture Observations: NO GROWTH AT 5 DAYS. Normal [facility] Comment on above: Performed By: #### C MP #### [facility] [address] [place] [address] Dr. Nilay Gibbs Microscopic examination of blood, culture Culture Observations: NO GROWTH AT 5 DAYS. Normal [facility] Comment on above: Performed By: #### C MP #### [facility] [address] [place] [address] Dr. Nilay Gibbs LACTATE/LACTIC ACIDon 2022 Lactate [Moles/Vol] 0.7 mmol/L Normal 0.4-2.0 [facility] Comment on above: Performed By: #### A MM #### [facility] [address] [place] [address] Dr. Nilay Gibbs PROF 14(COMP METB)on 023 Albumin [Mass/Vol] 3.8 g/dL Normal 3.4-5.0 [facility] Comment on above: Performed By: #### C RP, CMP #### [facility] [address] [place] [address] Dr. Nilay Gibbs Albumin/Globulin [Mass ratio] 1.1 {ratio} Normal [facility] Comment on above: Performed By: #### C RP, CMP #### [facility] [address] [place] [address] Dr. Nilay Gibbs ALP [Catalytic activity/Vol] 85 U/L Normal 46-116 [facility] Comment on above: Performed By: #### C RP, CMP #### [facility] [address] [place] [address] Dr. Nilay Gibbs ALT [Catalytic activity/Vol] 29 U/L Normal 16-63 [facility] Comment on above: Performed By: #### C RP, CMP #### [facility] [address] [place] [address] Dr. Nilay Gibbs Anion gap [Moles/Vol] 15.2 mmol/L Normal [facility] Comment on above: Performed By: #### C RP, CMP #### [facility] [address] [place] [address] Dr. Nilay Gibbs AST [Catalytic activity/Vol] 20 U/L Normal 15-37 [facility] Comment on above: Performed By: #### C RP, CMP #### [facility] [address] [address] [address] Nilay Gibbs Bilirubin [Mass/Vol] 1.1 mg/dL Critically high 0.2-1.0 [facility] Comment on above: Performed By: #### C RP, CMP #### [facility] [address] [address] [address] Nilay Gibbs Calcium [Mass/Vol] 9.4 mg/dL Normal 8.5-10.1 [facility] Comment on above: Performed By: #### C RP, CMP #### [facility] [address] [place] [address] Dr. Nilay Gibbs Chloride [Moles/Vol] 99 mmol/L Normal 98-107 [facility] Comment on above: Performed By: #### C RP, CMP #### [facility] [address] [place] [address] Dr. Nilay Gibbs CO2 [Moles/Vol] 25.7 mmol/L Normal 21.0-32.0 [facility] Comment on above: Performed By: #### C RP, CMP #### [facility] [address] [place] [address] Dr. Nilay Gibbs Creatinine [Mass/Vol] 1.32 mg/dL Critically high 0.70-1.30 [facility] Comment on above: Performed By: #### C RP, CMP #### [facility] [address] [place] [address] Dr. Nilay Gibbs EGFR-AF [place] CITIZ[place] >60 Normal >=[address] [facility] Comment on above: Performed By: #### C RP, CMP #### [facility] [address] [place] [address] Dr. Nilay Gibbs EGFR-NON AF [place] CITIZ[place] >60 Normal >=60 [facility] Comment on above: Performed By: #### C RP, CMP #### [facility] [address] [place] [address] Dr. Nilay Gibbs Globulin (S) [Mass/Vol] 3.6 g/dL Normal [facility] Comment on above: Performed By: #### C RP, CMP #### [facility] [address] [address] [address] Nilay Gibbs Glucose [Mass/Vol] 106 mg/dL Normal 74-106 [facility] Comment on above: Performed By: #### C RP, CMP #### [facility] [address] [address] [address] Nilay Gibbs Potassium [Moles/Vol] 3.9 mmol/L Normal 3.5-5.1 [facility] Comment on above: Performed By: #### C RP, CMP #### [facility] [address] [address] [address] Nilay Gibbs Protein [Mass/Vol] 7.4 g/dL Normal 6.4-8.2 [facility] Comment on above: Performed By: #### C RP, CMP #### [facility] [address] [address] [address] Nilay Gibbs Sodium [Moles/Vol] 136 mmol/L Normal 136-145 [facility] Comment on above: Performed By: #### C RP, CMP #### [facility] [address] [address] [address] Nilay Gibbs Urea nitrogen [Mass/Vol] 10.0 mg/dL Normal 7.0-18.0 [facility] Comment on above: Performed By: #### C RP, CMP #### [facility] [address] [address] [address] Nilay Gibbs Urea nitrogen/Creatinine [Mass ratio] 7.6 mg/mg Normal [facility] Comment on above: Performed By: #### C RP, CMP #### [facility] [address] [address] [address] Nilay Gibbs SED RATE [facility] 2022 SED RATE 46 mm/hr Critically high <=15 [facility] Comment on above: Performed By: #### S EDR #### [facility] [address] [address] [address] Nilay Gibbs [facility]on SARS-CoV-2 (COVID-19) RNA TALHA+probe Ql (Unsp spec) Not detected Normal NOT DETECTED [facility] Comment on above: Result Comment: When diagnostic testing is negative, the possibility of a false negative should be considered in the context of a patient's recent exposures and the presence of clinical signs and symptoms consistent with SARS-CoV-2. This test is not yet approved or cleared by the [place] FDA. When there are no FDA-approved or cleared tests available, and other criteria are met, FDA can make tests available under an emergency access mechanism called an Emergency Use Authorization (EUA). The EUA for this test is supported by the Mult Au Matic Operator of Health and Human Service's declaration that circumstances exist to justify the emergency use of in vitro diagnostics for the detection and/or diagnosis of the virus that causes COVID-19. This EUA will remain in effect for the duration of the COVID-19 declaration justifying emergency of IVDs, unless it is terminated or revoked by the FDA (after which the test may no longer be used). Performed By: #### A MM #### [facility] [address] [place] [address] Dr. Nilay Gibbs INFLUENZA A AND B AGon 01-31 INFLUANEGH SEE BELOW Normal [facility] Comment on above: Result Comment: Nega tive for Flu A protein angiten. Infection due to Flu A cannot be ruled out. Flu A angiten in the sample may be below the detection limit of the test. Performed By: #### A MM #### [facility] [address] [place] [address] Dr. Nilay Gibbs INFLUBNEGH SEE BELOW Normal [facility] Comment on above: Result Comment: Nega tive for Flu B protein antigen. Infection due to Flu B cannot be ruled out. Flu B antigen in the sample may be below the detection limit of the test. Performed By: #### A MM #### [facility] [address] [place] [address] Dr. Nilay Gibbs INFLUENZA A AG Negative Normal NEGATIVE SEE COMMENT [facility] Comment on above: Performed By: #### A MM #### [facility] [address] [place] [address] Dr. Nilay Gibbs INFLUENZA B AG Negative Normal NEGATIVE SEE COMMENT [facility] Comment on above: Performed By: #### A MM #### [facility] [address] [place], [place] [address] Dr. Nilay Gibbs INTERNAL CONTROLS Within Normal Limits Normal Wi thin Normal Limits [facility] Comment on above: Performed By: #### A MM #### [facility] [address] [place], [place] [address] Dr. 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 Polyarthritis with several nodules mainly over lower extremity joints. A thick white discharge has drained from nodules on his knee and foot in the past. Diagnosed with gout at the age of 19 by his PCP after he presented with pain, swelling, warmth and erythema of the great toe. Treated with allopurinol but he would still have arthritic flares once every 4 months. Saw gas plumbing inspector Dr. Jaime in [place] who did diagnostic knee aspiration which according to patient was positive for uric acid crystals. Treated with steroids and continued allopurinol. He has not seen Dr. Jaime since 2014. In 2014, he was hospitalized in [place] for acute polyarthritis. Saw gas plumbing inspector while in hospital who told him that he possibly had RA. Discharged on steroids. His PCP switched him from allopurinol to Uloric Jan 2017. He also takes colchicine prn. No reduction in frequency or severity of his joint flares with Uloric. In 2017, he has been hospitalized 7-8 times for acute joint flares. Each time he is treated with steroids. Hospitalized at [facility] Apr 2017 for acute flare of inflammatory arthritis of both knees and ankles. Improved with IV and oral steroids. Discharged on 9 day course of prednisone (starting dose of 50 mg daily). Noted to have synovitis on exam. EMS lasting less than 30 minutes. Has gel phenomenon with periods of inactivity. Sister diagnosed with lupus and fibromyalgia. Several maternal uncles (several) with gout. Cousin was diagnosed with RA at 10 years of age. THERAPIES/MEDICATIONS TRIED colchicine uric acid lowering agents: Uloric, allopurinol Tramadol Intermittent oral/IM glucocorticosteroids NSAIDs: ibuprofen, Aleve, indocin Injections in joints: none Injections in spine: none ASSESSMENT: Crystal proven gout. Other PMH: possible seronegative RA, CKD On allopurinol 300 mg BID+ colchicine 0.6 mg every other day Methotrexate 20 mg weekly held June 2019 due to anemia and elevated Cr. PLAN: 1. TOPHACEOUS GOUT -off Uloric with increase in his SUA from 5.7 to 11.1 mg/dL. He is unable to afford OOP costs of Uloric. -At today's visit, based on my clinical impression, the patient's disease appears to be clinically stable. -SUA not at goal. Pt advised to increase allopurinol to 350 mg qam and 300 mg qpm.He was advised to have uric acid drawn 4 weeks after increasing allopurinol dose and then every 4 weeks until uric acid level reaches a goal of 5.0 mg/dL or lower. -continue colchicine at the present dose -I asked that he have labs done at least 3-4 days prior to next appointment (lab orders in EMR) 2. POSSIBLE SERONEGATIVE RA -no synovitis on exam -hold off on DMARDs for now. 3. LEFT SHOULDER ROTATOR CUFF TEAR/ADHESIVE CAPSULITIS/LABRAL TEAR -had steroid injection of the left shoulder. It relieved his pain for 1 week. -12/2020: he had left shoulder MRI that showed full thickeness tear of supraspinatus and infraspinatus tendons , findings c/w adhesive capsulitis and diffuse labral tearing. -01/30/2021: saw orthopaedist regarding his left shoulder. Surgery was recommended. -Mar 19: had left shoulder surgery by Dr. Tc Coffey at [facility]. No post op complications. Currently on PT - still working on shoulder ROM. 4. GENERAL HEALTH MAINTENANCE -continue follow up on his CKD with nephrology -he will follow up with his PCP for his general health issues RTC in 7 mon, sooner if needed INTERVAL HISTORY -he has stress fracture of the left shoulder (had left shoulder surgery 03/19/2020). Being treated with bone stimulator. Otherwise no other joint issues. -no joint flares -taking allopurinol 300 mg BID and colchicine every other day. Tolerating medications without issues. Swollen joints: none EMS: lasting 30 minutes ALLERGIES No Known Allergies Current Outpatient Medications Medication Sig allopurinol (ZYLOPRIM) 300 mg tablet TAKE 1 TABLET BY MOUTH TWICE A DAY colchicine (COLCRYS) 0.6 mg tablet Take 1 tablet by mouth every other day. amLODIPine (NORVASC) 5 mg tablet Take 1 tablet by mouth twice daily. cholecalciferol (VITAMIN D3) 50 mcg (2,000 unit) tablet Take 1 tablet by mouth once daily. ALPRAZolam (XANAX) 0.25 mg tablet Take 0.25 mg by mouth twice daily. buPROPion SR (WELLBUTRIN SR) 100 mg 12 hr tablet Take 100 mg by mouth twice daily. traMADol (ULTRAM) 50 mg tablet Take 1 tablet by mouth every 8 hours as needed for Pain for up to 4 days (more content not included)... Normal [facility] Urate SerPl-ncon 2 Urate [Mass/Vol] 5.5 mg/dL Normal 4.0-8.1 [facility] Comment on above: Order Comment: Speci men Type: BLOOD SPECIMEN Ordering Facility: [facility] Address: [address] [place] [id number] Performed By: #### 3 [id number] #### [facility] CLIA [id number] [address] [place] [id number] Cholesterol [Mass/volume] in Serum or PlasmaOrdered By: Adam Young on 12-08-2021 Cholesterol [Mass/Vol] 205 mg/dL 140-200 [facility] Comment on above: Chol less than 200 m g/dl low riskChol 201-239 mg/dl borderline riskChol 240 mg/dl and greater high risk Cholesterol in LDL Calc [Mas s/Vol]Ordered By: Adam Young on 12-08-2021 Cholesterol in LDL [Mass/Vol] 120 mg/dL 0-100 [facility] Comment on above: LDL ATP III CLASSIFI CATIONLDL less than 100 mg/dL OptimalLDL 100-129 mg/dL Near or above optimalLDL 130-159 mg/dL Borderline highLDL 160-189 mg/dL HighLDL greater than 189 mg/dL Very high Cholesterol in VLDL Calc [Ma ss/Vol]Ordered By: Adam Young on 12-08-2021 Cholesterol in VLDL [Mass/Vol] 37 mg/dL [facility] No Panel InformationOrdered By: Adam Young on 12-08-2021 25-Hydroxy Vitamin D Total 50.6 ng/mL 30-100 [facility] Comment on above: VITAMIN D STATUS 25( [place])VITAMIN D RANGE (ng/mL) Deficient <20 Insufficient 20 to <30Sufficient 30 to 100Reference: Harpal MF,[place], Dayron WAN, et al. Evaluation,treatment, and prevention of vitamin D deficiency; an Endocrine Society clinical practice guideline. JCEM. 2010; 96(7):1911-30. Serum or plasma high density lipoprotein (HDL) cholesterol measurementOrdered By: Adam Young on 12-08-2021 Cholesterol in HDL [Mass/Vol] 47 mg/dL 29-71 [facility] Comment on above: HDL CHOL ATP-III CLA SSIFICATION Cardiovascular RiskHDL > or equal to 60 mg/dL LOWHDL < 40 mg/dL HIGH Serum or plasma total choles terol/high density lipoprotein (HDL) cholesterol mass ratOrdered By: Adam Young on 12-08-2021 Cholesterol.total/Ch olesterol in HDL [Mass ratio] 4.4 {ratio} <5.0 [facility] TSH DL <= 0.005 mIU/L QnOrde red By: Adam Young on 12-08-2021 TSH Qn 0.75 m[IU]/L 0.45-5.33 [facility] Triglyceride [Mass/volume] i n Serum or PlasmaOrdered By: Adam Young on 12-08-2021 Triglyceride [Mass/Vol] 188 mg/dL 35-149 [facility] Comment on above: TRIG ATP III CLASSIF ICATIONTRIG less than 150 mg/dL NormalTRIG 150-199 mg/dL Borderline highTRIG 200-500 mg/dL High TRIG greater than 500 mg/dL Very highStandard traceable to the Center for Disease Conrtrol and Prevention (CDC) test method. Cov[facility]19 [facility]on SARS-CoV-2 (COVID-19) RNA TALHA+probe Ql (Unsp spec) Not detected Normal NOT DETECTED [facility] Comment on above: Result Comment: When diagnostic testing is negative, the possibility of a false negative should be considered in the context of a patient's recent exposures and the presence of clinical signs and symptoms consistent with SARS-CoV-2. This test is not yet approved or cleared by the [place] FDA. When there are no FDA-approved or cleared tests available, and other criteria are met, FDA can make tests available under an emergency access mechanism called an Emergency Use Authorization (EUA). The EUA for this test is supported by the Mult Au Matic Operator of Health and Human Service's declaration that circumstances exist to justify the emergency use of in vitro diagnostics for the detection and/or diagnosis of the virus that causes COVID-19. This EUA will remain in effect for the duration of the COVID-19 declaration justifying emergency of IVDs, unless it is terminated or revoked by the FDA (after which the test may no longer be used). Performed By: #### C MP #### [facility] [address] [place] [address] Dr. Nilay Gibbs ETHANOL (BLD ALC)on 12-08-19 22 Ethanol [Mass/Vol] 288 mg/dL Normal [facility] Comment on above: Performed By: #### C MP #### [facility] [address] [address] [address] Nilay Gibbs ALC NOTE NOTE: 80 mg/dl is th e legal limit for a blood alcohol level Normal [facility] Comment on above: Performed By: #### C MP #### [facility] [address] [place] [address] Dr. Nilay Gibbs Performed By: #### A MM #### [facility] [address] [place] [address] Dr. Nilay Gibbs Ethanol [Mass/Vol] 130 mg/dL Normal [facility] Comment on above: Performed By: #### A MM #### [facility] [address] [place] [address] Dr. Nilay Gibbs Ethanol [Mass/Vol] 196 mg/dL Normal [facility] Comment on above: Performed By: #### A MM #### [facility] [address] [place] [address] Dr. Nilay Gibbs ACETAMINOPHENon 12-06-2021 Acetaminophen [Mass/Vol] ug/mL Critically low 10.0-30.0 [facility] Comment on above: Performed By: #### A CET #### [facility] [address] [place] [address] Dr. Nilay Gibbs AMMONIAon 12-06-2021 Ammonia (P) [Moles/Vol] 22 umol/L Normal 11-32 [facility] Comment on above: Performed By: #### A MM #### [facility] [address] [place] [address] Dr. Nilay Gibbs CBC AUTO DIFFon 12-06-2021 BASO # 0.0 103/ul Normal 0.0-0.1 [facility] Comment on above: Performed By: #### A MM #### [facility] [address] [place] [address] Dr. Nilay Gibbs Basophils/100 WBC (Bld) 0.5 % Normal 0.2-2.0 [facility] Comment on above: Performed By: #### A MM #### [facility] [address] [place] [address] Dr. Nilay Gibbs EO # 0.1 103/ul Normal 0.0-0.7 [facility] Comment on above: Performed By: #### A MM #### [facility] [address] [place] [address] Dr. Nilay Gibbs Eosinophils/100 WBC (Bld) 1.0 % Normal 0.9-7.0 [facility] Comment on above: Performed By: #### A MM #### [facility] [address] [place] [address] Dr. Nilay Gibbs Erythrocyte distribution width (RBC) [Ratio] 12.9 % Normal 11.0-15.0 [facility] Comment on above: Performed By: #### A MM #### [facility] [address] [place] [address] Dr. Nilay Gibbs Hematocrit (Bld) [Volume fraction] 40.5 % Critically low 42.0-54.0 [facility] Comment on above: Performed By: #### A MM #### [facility] [address] [place] [address] Dr. Nliay Gibbs Hemoglobin (Bld) [Mass/Vol] 13.9 g/dL Critically low 14.0-18.0 [facility] Comment on above: Performed By: #### A MM #### [facility] [address] [place] [address] Dr. Nilay Gibbs IG # 0.02 10e3/ul Normal 0.00-0.03 [facility] Comment on above: Performed By: #### A MM #### [facility] [address] [place] [address] Dr. Nilay Gibbs IG % 0.3 % Normal 0.0-0.5 [facility] Comment on above: Performed By: #### A MM #### [facility] [address] [place] [address] Dr. Nilay Gibbs LYMPH # 2.7 103/ul Normal 1.2-3.8 [facility] Comment on above: Performed By: #### A MM #### [facility] [address] [place] [address] Dr. Nilay Gibbs Lymphocytes/100 WBC (Bld) 45.2 % Normal 20.5-60.0 [facility] Comment on above: Performed By: #### A MM #### [facility] [address] [place] [address] Dr. Nilay Gibbs MANUAL DIFF REQ NO Normal [facility] Comment on above: Performed By: #### A MM #### [facility] [address] [address] [address] Nilay Gibbs MCH (RBC) [Entitic mass] 29.8 pg Normal 25.9-34.0 [facility] Comment on above: Performed By: #### A MM #### [facility] [address] [place] [address] Dr. Nilay Gibbs MCHC (RBC) [Mass/Vol] 34.3 g/dL Normal 29.9-35.2 [facility] Comment on above: Performed By: #### A MM #### [facility] [address] [place] [address] Dr. Nilay Gibbs MCV (RBC) [Entitic vol] 86.9 fL Normal 80.0-94.0 [facility] Comment on above: Performed By: #### A MM #### [facility] [address] [place] [address] Dr. Nilay Gibbs MONO # 0.4 103/ul Normal 0.3-0.8 [facility] Comment on above: Performed By: #### A MM #### [facility] [address] [place] [address] Dr. Nilay Gibbs Monocytes/100 WBC (Bld) 6.3 % Normal 1.7-12.0 [facility] Comment on above: Performed By: #### A MM #### [facility] [address] [place] [address] Dr. Nilay Gibbs NEUT # 2.7 103/ul Normal 1.4-6.5 [facility] Comment on above: Performed By: #### A MM #### [facility] [address] [place] [address] Dr. Nilay Gibbs Neutrophils/100 WBC (Bld) 46.7 % Normal 43.0-75.0 [facility] Comment on above: Performed By: #### A MM #### [facility] [address] [place] [address] Dr. Nilay Gibbs Platelet mean volume (Bld) [Entitic vol] 10.4 fL Normal 9.5-13.5 [facility] Comment on above: Performed By: #### A MM #### [facility] [address] [address] [address] Nilay Gibbs PLT 237 103/ul Normal 150-450 [facility] Comment on above: Performed By: #### A MM #### [facility] [address] [address] [address] Nilay Gibbs RBC 4.66 106/ul Critically low 4.70-6.10 [facility] Comment on above: Performed By: #### A MM #### [facility] [address] [address] [address] Nilay Gibbs WBC 5.9 103/ul Normal 4.0-11.0 [facility] Comment on above: Performed By: #### A MM #### [facility] [address] [place] [address] Dr. Nilay Gibbs DRUG SCREEN RAPID (URINE)on 12-06-2021 AMP Negative Normal NEGATIVE [facility] Comment on above: Performed By: #### D RUGRPD #### [facility] [address] [address] [address] Nilay Gibbs BAR Negative Normal NEGATIVE [facility] Comment on above: Performed By: #### D RUGRPD #### [facility] [address] [address] [address] Nilay Gibbs BUP Negative Normal NEGATIVE [facility] Comment on above: Performed By: #### D RUGRPD #### [facility] [address] [address] [address] Nilay Gibbs BZO Positive Abnormal NEGATIVE [facility] Comment on above: Performed By: #### D RUGRPD #### [facility] [address] [address] [address] Nilay Gibbs ROQUE Negative Normal NEGATIVE [facility] Comment on above: Performed By: #### D RUGRPD #### [facility] [address] [place] [address] Dr. Nilay Gibbs CUT-OFFS SEE BELOW Normal [facility] Comment on above: Result Comment: AMP (Amphetamine): 500ng/mL, BAR (Barbituates): 200 ng/mL, BZO (Benzodiazepines): 150 ng/mL, BUP (Buprenorphine): 10 ng/mL, ROQUE (Cocaine): 150 ng/mL, mAMP (Methamphetamine): 500 ng/mL, MTD (Methadone): 200 ng/mL, OPI (Opiates): 100 ng/mL, OXY (Oxycodone): 100 ng/mL, PCP (Phencyclidine): 25 ng/mL, PPX (Propoxyphene): 300 ng/mL, THC (Cannabinoids): 50 ng/mL, TCA (Trycyclic Antidepressants): 300 ng/mL Performed By: #### D RUGRPD #### [facility] [address] [place] [address] Dr. Nilay Gibbs DRUG CUT HEADER DRUG CLASS TEST SYST EM CUT-OFF CONCENTRATIONS ARE FOLLOWS: Normal [facility] Comment on above: Performed By: #### D RUGRPD #### [facility] [address] [place] [address] Dr. Nilay Gibbs mAMP Negative Normal NEGATIVE [facility] Comment on above: Performed By: #### D RUGRPD #### [facility] [address] [place] [address] Dr. Nilay Gibbs MTD Negative Normal NEGATIVE [facility] Comment on above: Performed By: #### D RUGRPD #### [facility] [address] [place] [address] Dr. Nilay Gibbs OPI Negative Normal NEGATIVE [facility] Comment on above: Performed By: #### D RUGRPD #### [facility] [address] [place] [address] Dr. Nilay Gibbs OXY Negative Normal NEGATIVE [facility] Comment on above: Performed By: #### D RUGRPD #### [facility] [address] [place] [address] Dr. Nilay Gibbs PCP Negative Normal NEGATIVE [facility] Comment on above: Performed By: #### D RUGRPD #### [facility] [address] [place] [address] Dr. Nilay Gibbs PPX Negative Normal NEGATIVE [facility] Comment on above: Performed By: #### D RUGRPD #### [facility] [address] [place] [address] Dr. Nilay Gibbs TCA Negative Normal NEGATIVE [facility] Comment on above: Performed By: #### D RUGRPD #### [facility] [address] [place] [address] Dr. Nilay Gibbs THC Negative Normal NEGATIVE [facility] Comment on above: Performed By: #### D RUGRPD #### [facility] [address] [address] [address] Nilay Gibbs ETHANOL (BLD ALC)on 12-07-19 22 ALC NOTE NOTE: 80 mg/dl is th e legal limit for a blood alcohol level Normal [facility] Comment on above: Performed By: #### C MP #### [facility] [address] [place] [address] Dr. Nilay Gibbs Ethanol [Mass/Vol] 336 mg/dL Normal [facility] Comment on above: Performed By: #### C MP #### [facility] [address] [place] [address] Dr. Nilay Gibbs PROF 14(COMP METB)on 022 Albumin [Mass/Vol] 4.2 g/dL Normal 3.4-5.0 [facility] Comment on above: Performed By: #### C MP #### [facility] [address] [place] [address] Dr. Nilay Gibbs Albumin/Globulin [Mass ratio] 1.3 {ratio} Normal [facility] Comment on above: Performed By: #### C MP #### [facility] [address] [place] [address] Dr. Nilay Gibbs ALP [Catalytic activity/Vol] 104 U/L Normal 46-116 [facility] Comment on above: Performed By: #### C MP #### [facility] [address] [place] [address] Dr. Nilay Gibbs ALT [Catalytic activity/Vol] 41 U/L Normal 16-63 [facility] Comment on above: Performed By: #### C MP #### [facility] [address] [place] [address] Dr. Nilay Gibbs Anion gap [Moles/Vol] 11.5 mmol/L Normal [facility] Comment on above: Performed By: #### C MP #### [facility] [address] [address] [address] Nilay Gibbs AST [Catalytic activity/Vol] 37 U/L Normal 15-37 [facility] Comment on above: Performed By: #### C MP #### [facility] [address] [address] [address] Nilay Gibbs Bilirubin [Mass/Vol] 0.2 mg/dL Normal 0.2-1.0 [facility] Comment on above: Performed By: #### C MP #### [facility] [address] [address] [address] Nilay Gibbs Calcium [Mass/Vol] 8.6 mg/dL Normal 8.5-10.1 [facility] Comment on above: Performed By: #### C MP #### [facility] [address] [address] [address] Nilay Gibbs Chloride [Moles/Vol] 97 mmol/L Critically low 98-107 [facility] Comment on above: Performed By: #### C MP #### [facility] [address] [address] [address] Nilay Gibbs CO2 [Moles/Vol] 26.0 mmol/L Normal 21.0-32.0 [facility] Comment on above: Performed By: #### C MP #### [facility] [address] [address] [address] Nilay Gibbs Creatinine [Mass/Vol] 1.47 mg/dL Critically high 0.70-1.30 [facility] Comment on above: Performed By: #### C MP #### [facility] [address] [address] [address] Nilay Gibbs EGFR-AF [place]IZ[place] >60 Normal >=[address] [facility] Comment on above: Performed By: #### C MP #### [facility] [address] [address] [address] Nilay Gibbs EGFR-NON AF [place] 56 mL/min/1.73m2 Critically low >=60 [facility] Comment on above: Performed By: #### C MP #### [facility] [address] [place] [address] Dr. Nilay Gibbs Globulin (S) [Mass/Vol] 3.2 g/dL Normal [facility] Comment on above: Performed By: #### C MP #### [facility] [address] [address] [address] Nilay Gibbs Glucose [Mass/Vol] 117 mg/dL Critically high 74-106 [facility] Comment on above: Performed By: #### C MP #### [facility] [address] [address] [address] Nilay Gibbs Potassium [Moles/Vol] 3.5 mmol/L Normal 3.5-5.1 [facility] Comment on above: Performed By: #### C MP #### [facility] [address] [place] [address] Dr. Nilay Gibbs Protein [Mass/Vol] 7.4 g/dL Normal 6.4-8.2 [facility] Comment on above: Performed By: #### C MP #### [facility] [address] [place] [address] Dr. Nilay Gibbs Sodium [Moles/Vol] 131 mmol/L Critically low 136-145 [facility] Comment on above: Performed By: #### C MP #### [facility] [address] [place] [address] Dr. Nilay Gibbs Urea nitrogen [Mass/Vol] 14.0 mg/dL Normal 7.0-18.0 [facility] Comment on above: Performed By: #### C MP #### [facility] [address] [address] [address] Nilay Gibbs Urea nitrogen/Creatinine [Mass ratio] 9.5 mg/mg Normal [facility] Comment on above: Performed By: #### C MP #### [facility] [address] [place] [address] Dr. Nilay Gibbs SALICYLATEon 12-06-2021 SALICYLATE <2.8 Normal <=19.9 [facility] Comment on above: Performed By: #### A MM #### [facility] [address] [address] [address] Nilay Gibbs MRI Shoulder w/o Lefton 10-30 MRI Shoulder w/o Left HISTORY: Left posterior and lateral shoulder pain for one month. History of prior shoulder surgery. Concern for rotator cuff tear. TECHNIQUE: Routine non-contrast MRI of the shoulder , left side COMPARISON: Radiographs 10/23/2021. MRI 01/08/2021. RESULT: Some limitations from motion. Rotator Cuff Tendons: Changes from interval rotator cuff repair. Moderate tendinosis involving supraspinatus and infraspinatus, without evidence for recurrent tear. Mild to moderate tendinosis involving subscapularis, without tear. Teres minor appears intact. Long Head Biceps Tendon: Interval changes from biceps tenodesis. Muscle: Muscle bulk and signal intensity are within normal limits. Labrum: Interval changes from labral repair. No evidence for recurrent displaced tear within limits of motion and lack of joint fluid. Bones and Marrow: No evidence of fracture or bone marrow replacing process. Glenohumeral Joint: Osteophytes with small to moderate areas of chondral loss. No joint effusion or synovitis. Acromioclavicular Joint: Mild degenerative changes. Other: Small amount of fluid in the subacromial subdeltoid bursal region. IMPRESSION: Interval changes from rotator cuff repair without evidence for recurrent tear. Other postsurgical changes as discussed. Report reported and signed by Stephen Ware on 11/11/2021 0955 Normal [facility] [employer] Activated partial thrombopla stin time (aPTT) in platelet poor plasma by coagulation aOrdered By: Kristal Goldberg on 09-27-2021 aPTT Coag (PPP) [Time] 34.7 s 25.1-36.5 [facility] Albumin [Mass/volume] in Ser um or PlasmaOrdered By: Kristal Goldberg on 09-27-2021 Albumin [Mass/Vol] 4.1 g/dL 3.2-5.5 [facility] Basophils Auto (Bld) [#/Vol] Ordered By: Kristal Goldberg on 09-27-2021 Basophils (Bld) [#/Vol] 0.0 10*3/uL 0.0-0.2 [facility] Basophils/100 WBC Auto (Bld) Ordered By: Kristal Goldberg on 09-27-2021 Basophils/100 WBC (Bld) 0.3 % . [facility] Bilirubin Auto test strip Ql (U)Ordered By: Kristal Goldberg on 09-27-2021 Bilirubin Ql (U) Negative Negative [facility] Blood hemoglobin measurement (mass/volume)Ordered By: Kristal Goldberg on 09-27-2021 Hemoglobin (Bld) [Mass/Vol] 13.6 g/dL 13.0-17.0 [facility] Blood leukocytes automated c ount (number/volume)Ordered By: Kristal Goldberg on 09-27-2021 WBC (Bld) [#/Vol] 5.7 10*3/uL 4.5-11.0 [facility] CBC AUTO DIFFon 09-27-2021 BASO # 0.0 103/ul Normal 0.0-0.1 [facility] Comment on above: Performed By: #### A MM #### [facility] [address] [place] [address] Dr. Nilay Gibbs Basophils/100 WBC (Bld) 0.5 % Normal 0.2-2.0 [facility] Comment on above: Performed By: #### A MM #### [facility] [address] [place] [address] Dr. Nilay Gibbs EO # 0.1 103/ul Normal 0.0-0.7 [facility] Comment on above: Performed By: #### A MM #### [facility] [address] [address] [address] Nilay Gibbs Eosinophils/100 WBC (Bld) 1.6 % Normal 0.9-7.0 [facility] Comment on above: Performed By: #### A MM #### [facility] [address] [place] [address] Dr. Nilay Gibbs Erythrocyte distribution width (RBC) [Ratio] 14.0 % Normal 11.0-15.0 [facility] Comment on above: Performed By: #### A MM #### [facility] [address] [place] [address] Dr. Nilay Gibbs Hematocrit (Bld) [Volume fraction] 40.2 % Critically low 42.0-54.0 [facility] Comment on above: Performed By: #### A MM #### [facility] [address] [place] [address] Dr. Nilay Gibbs Hemoglobin (Bld) [Mass/Vol] 13.7 g/dL Critically low 14.0-18.0 [facility] Comment on above: Performed By: #### A MM #### [facility] [address] [place] [address] Dr. Nilay Gibbs IG # 0.01 10e3/ul Normal 0.00-0.03 [facility] Comment on above: Performed By: #### A MM #### [facility] [address] [place] [address] Dr. Nilay Gibbs IG % 0.2 % Normal 0.0-0.5 [facility] Comment on above: Performed By: #### A MM #### [facility] [address] [place] [address] Dr. Nilay Gibbs LYMPH # 2.1 103/ul Normal 1.2-3.8 [facility] Comment on above: Performed By: #### A MM #### [facility] [address] [place] [address] Dr. Nilay Gibbs Lymphocytes/100 WBC (Bld) 37.1 % Normal 20.5-60.0 [facility] Comment on above: Performed By: #### A MM #### [facility] [address] [place] [address] Dr. Nilay Gibbs MANUAL DIFF REQ NO Normal [facility] Comment on above: Performed By: #### A MM #### [facility] [address] [place] [address] Dr. Nilay Gibbs MCH (RBC) [Entitic mass] 30.1 pg Normal 25.9-34.0 [facility] Comment on above: Performed By: #### A MM #### [facility] [address] [place] [address] Dr. Nilay Gibbs MCHC (RBC) [Mass/Vol] 34.1 g/dL Normal 29.9-35.2 [facility] Comment on above: Performed By: #### A MM #### [facility] [address] [place] [address] Dr. Nilay Gibbs MCV (RBC) [Entitic vol] 88.4 fL Normal 80.0-94.0 [facility] Comment on above: Performed By: #### A MM #### [facility] [address] [place] [address] Dr. Nilay Gibbs MONO # 0.4 103/ul Normal 0.3-0.8 [facility] Comment on above: Performed By: #### A MM #### [facility] [address] [place] [address] Dr. Nilay Gibbs Monocytes/100 WBC (Bld) 7.2 % Normal 1.7-12.0 [facility] Comment on above: Performed By: #### A MM #### [facility] [address] [place] [address] Dr. Nilay Gibbs NEUT # 3.1 103/ul Normal 1.4-6.5 [facility] Comment on above: Performed By: #### A MM #### [facility] [address] [place] [address] Dr. Nilay Gibbs Neutrophils/100 WBC (Bld) 53.4 % Normal 43.0-75.0 [facility] Comment on above: Performed By: #### A MM #### [facility] [address] [place] [address] Dr. Nilay Gibbs Platelet mean volume (Bld) [Entitic vol] 10.3 fL Normal 9.5-13.5 [facility] Comment on above: Performed By: #### A MM #### [facility] [address] [place] [address] Dr. Nilay Gibbs PLT 254 103/ul Normal 150-450 [facility] Comment on above: Performed By: #### A MM #### [facility] [address] [place] [address] Dr. Nilay Gibbs RBC 4.55 106/ul Critically low 4.70-6.10 [facility] Comment on above: Performed By: #### A MM #### [facility] [address] [place], [place] [address] Dr. Nilay Gibbs WBC 5.7 103/ul Normal 4.0-11.0 [facility] Comment on above: Performed By: #### A MM #### [facility] [address] [place], [place] [address] HEAD WO CONon 09-27-[address]21 CT HEAD WO CON CT head without cont rast CLINICAL: Neck swelling and pain. TECHNIQUE: Contiguous transaxial images were obtained from skull base to vertex without administration of intravenous contrast. Dose reduction: mA and/or kV are were adjusted by automated exposure control software based upon patients height and weight. FINDINGS: Comparison made to head CT dated 12/20/2020. There is no focal scalp soft tissue swelling or acute calvarial fracture. The visualized globes and orbits are grossly normal. There is mild paranasal sinus mucosal thickening without air-fluid levels Bilateral mastoid air cells are clear. The ventricles and sulci are normal and symmetric bilaterally. There is no intraparenchymal hemorrhage, extraaxial fluid collection, mass lesion, or acute large vessel ischemia by noncontrast CT. IMPRESSION: 1. No acute intracranial hemorrhage or large vessel ischemia by noncontrast CT. Electronically authenticated by: RUFINA MARIN Date: 2021-09-27 10:27 Normal [facility] HEAD [facility] CTA HEAD WITH CONTRA ST: 09/27/2021 9:35 AM EDT History: Pain. Neck swelling and pain Comparison: None available . Contrast-enhanced helically acquired data per systemic arterial protocol. From the base data set, volumetric recons in MIP mode were generated and reviewed. 3-D images were rendered on a separate workstation. In the neck no focal soft tissue prominence. Relatively symmetric cervical nodes. No fluid collection is evident within the neck VERTEBRALS: Codominant and widely patent. PICAs: Left is unremarkable. Right not seen at its expected origin. BASILAR : Widely patent. AICAs: Question small vessel on the right. Alternatively this is venous SUPERIOR CEREBELLARS: Patent and symmetric POSTERIOR CEREBRALS: P1 segments are patent. The right is mildly hypoplastic. P2 segments are patent and symmetric INTRACRANIAL ICAs: Patent and symmetric OPHTHALMIC ARTERIES: Nonobscured aspects are patent and symmetric ANTERIOR CEREBRALS: Codominant A1 segments. Acomm is thin but otherwise unremarkable. A2 segments are codominant. There is some earlier branching on the left than the right MIDDLE CEREBRALS: M1 segments are patent and symmetric. They branch unremarkably. Insular loops of the MCAs appear reasonably symmetric in caliber and in number P-COMMS: The right is a medium-sized blood vessel and is widely patent. The left is a thin vessel. OTHER: None IMPRESSION: 1. No moderate or significant stenosis involving a large to medium size intracranial arterial blood vessel. 2. Left PICA is a good sized blood vessel and is well seen. Right is not seen. If there is a right AICA it is thin.. No obvious encephalomalacia right side of the cerebellum. Perhaps these findings are chronic All CT scans at this facility use dose modulation, iterative reconstruction, and/or weight based dosing when appropriate to reduce radiation dose to as low as reasonably achievable. Electronically authenticated by: NEL KING Date: 2021-09-27 12:19 Normal [facility] CTA NECK WO W CONon 09-28-19 22 CTA NECK WO W CON CT ANGIOGRAPHY NECK: 09/27/2021 9:35 AM EDT Clinical History:Pain Comparison: None available . Contrast-enhanced helically acquired data per protocol. From this dataset volumetric recons in MIP mode were generated and reviewed. 3-D images were rendered on a separate workstation. NASCET criteria were utilized. INNOMINATE: Widely patent. RIGHT SUBCLAVIAN: Widely patent. RIGHT VERTEBRAL: Good sized blood vessel and widely patent throughout its extradural course. LEFT SUBCLAVIAN: Partially obscured by artifact from neighboring dense venous contrast. Proximal aspects through the takeoff of the left vertebral are unremarkable LEFT VERTEBRAL: Good sized blood vessel and widely patent throughout its extradural course RIGHT CAROTID SYSTEM: CCA is widely patent. It bifurcates unremarkably. 0% stenosis cervical right ICA. ECA is widely patent. LEFT CAROTID SYSTEM: CCA is widely patent. It does bifurcate unremarkably. 0% stenosis cervical left ICA. The ECA is widely patent. No distinct evidence of intimal flap to indicate dissection. No acute osseous finding. There may be some spasm in the neck. IMPRESSION: 1. No acute findings at CTA All CT scans at this facility use dose modulation, iterative reconstruction, and/or weight based dosing when appropriate to reduce radiation dose to as low as reasonably achievable. Electronically authenticated by: NEL KING Date: 2021-09-27 12:06 Normal [facility] Creatine kinase [Enzymatic a ctivity/volume] in Serum or PlasmaOrdered By: Kristal Goldberg on 09-27-2021 CK [Catalytic activity/Vol] 181 U/L 22-269 [facility] Creatinine and Glomerular fi ltration rate.predicted panel (S/P/Bld)Ordered By: Kristal Goldberg on 09-27-2021 Creatinine [Mass/Vol] 1.36 mg/dL 0.64-1.27 [facility] Eosinophils Auto (Bld) [#/Vo l]Ordered By: Kristal Goldberg on 09-27-2021 Eosinophils (Bld) [#/Vol] 0.1 10*3/uL 0.0-0.45 [facility] Eosinophils/100 WBC Auto (Bl d)Ordered By: Kristal Goldberg on 09-27-2021 Eosinophils/100 WBC (Bld) 1.2 % . [facility] Erythrocyte distribution wid th Auto (RBC) [Ratio]Ordered By: Kristal Goldberg on 09-27-2021 Erythrocyte distribution width (RBC) [Ratio] 14.5 % 12.0-14.8 [facility] Estimated glomerular filtrat ion rate (GFR) non- AmericanOrdered By: Kristal Goldberg on 09-27-2021 GFR/1.73 sq M.predicted among non-blacks MDRD (S/P/Bld) [Vol rate/Area] > 60 mL/Min [facility] Globulin Calc (S) [Mass/Vol] Ordered By: Kristal Goldberg 09-27-2021 Globulin (S) [Mass/Vol] 2.4 g/dL [facility] Hematocrit Auto (Bld) [Volum e fraction]Ordered By: Kristal Goldberg on 09-27-2021 Hematocrit (Bld) [Volume fraction] 40.8 % 38.8-50.0 [facility] Ketones Auto test strip (U) [Mass/Vol]Ordered By: Kristal Goldberg on 09-27-2021 Ketones (U) [Mass/Vol] Negative Negative [facility] Laboratory - CoagulationOrde red By: Kristal Goldberg on 09-27-2021 PT Coag (PPP) [Time] 11.8 s 9.0-12.9 [facility] - Hematology and Cell countsOrdered By: Kristal Goldberg on 09-27-2021 Nucleated RBC/100 WBC (Bld) [Ratio] 0.0 % 0-0.5 [facility] Lymphocytes Auto (Bld) [#/Vo l]Ordered By: Kristal Goldberg on 09-27-2021 Lymphocytes (Bld) [#/Vol] 1.8 10*3/uL 1.00-4.8 [facility] Lymphocytes/100 WBC Auto (Bl d)Ordered By: Kristal Goldberg on 09-27-2021 Lymphocytes/100 WBC (Bld) 31.2 % . [facility] MCH Auto (RBC) [Entitic mass ]Ordered By: Kristal Goldberg on 09-27-2021 MCH (RBC) [Entitic mass] 30.1 pg 27.5-35.2 [facility] MCHC Auto (RBC) [Mass/Vol]Or dered By: Kristal Goldberg on 09-27-2021 MCHC (RBC) [Mass/Vol] 33.4 g/dL 32.5-35.6 [facility] MCV Auto (RBC) [Entitic vol] Ordered By: Kristal Goldberg on 09-27-2021 MCV (RBC) [Entitic vol] 90.3 fL 83.5-101 [facility] Monocytes Auto (Bld) [#/Vol] Ordered By: Kristal Goldberg on 09-27-2021 Monocytes (Bld) [#/Vol] 0.3 10*3/uL 0.0-0.8 [facility] Monocytes/100 WBC Auto (Bld) Ordered By: Kristal Goldberg on 09-27-2021 Monocytes/100 WBC (Bld) 6.0 % . [facility] Neutrophils Auto (Bld) [#/Vo l]Ordered By: Kristal Goldberg on 09-27-2021 Neutrophils (Bld) [#/Vol] 3.5 10*3/uL 1.8-7.7 [facility] Neutrophils/100 WBC Auto (Bl d)Ordered By: Kristal Goldberg on 09-27-2021 Neutrophils/100 WBC (Bld) 61.3 % . [facility] No Panel InformationOrdered By: Kristal Goldberg on 09-27-2021 Estimated GFR () > 60 mL/Min [facility] Comment on above: GFR estimated refere nce range: According to KDOQI guidelines, <60 ml/min/1.73m2 is sufficient to diagnose a patient with chronic kidney disease. Pharmacy Creatinine Clearance (Chem 94.06 [facility] PROF CHEM 8 (BAS METB)on Anion gap [Moles/Vol] 10.0 mmol/L Normal [facility] Comment on above: Performed By: #### C MP #### [facility] [address] [place] [address] Dr. Nilay Gibbs Calcium [Mass/Vol] 9.4 mg/dL Normal 8.5-10.1 [facility] Comment on above: Performed By: #### C MP #### [facility] [address] [address] [address] Nilay Gibbs Chloride [Moles/Vol] 103 mmol/L Normal 98-107 [facility] Comment on above: Performed By: #### C MP #### [facility] [address] [address] [address] Nilay Gibbs CO2 [Moles/Vol] 27.6 mmol/L Normal 21.0-32.0 [facility] Comment on above: Performed By: #### C MP #### [facility] [address] [address] [address] Nilay Gibbs Creatinine [Mass/Vol] 1.39 mg/dL Critically high 0.70-1.30 [facility] Comment on above: Performed By: #### C MP #### [facility] [address] [address] [address] Nilay Gibbs EGFR-AF [place]IZ[place] >60 Normal >=60 [facility] Comment on above: Performed By: #### C MP #### [facility] [address] [address] [address] Nilay Gibbs EGFR-NON AF [place] 60 mL/min/1.73m2 Normal >=60 [facility] Comment on above: Performed By: #### C MP #### [facility] [address] [address] [address] Nilay Gibbs Glucose [Mass/Vol] 115 mg/dL Critically high 74-106 [facility] Comment on above: Performed By: #### C MP #### [facility] [address] [address] [address] Nilay Gibbs Potassium [Moles/Vol] 3.6 mmol/L Normal 3.5-5.1 [facility] Comment on above: Performed By: #### C MP #### [facility] [address] [address] [address] Nilay Gibbs Sodium [Moles/Vol] 137 mmol/L Normal 136-145 [facility] Comment on above: Performed By: #### C MP #### [facility] [address] [address] [address] Nilay Gibbs Urea nitrogen [Mass/Vol] 17.0 mg/dL Normal 7.0-18.0 [facility] Comment on above: Performed By: #### C MP #### [facility] [address] [address] [address] Nilay Gibbs Urea nitrogen/Creatinine [Mass ratio] 12.2 mg/mg Normal [facility] Comment on above: Performed By: #### C MP #### [facility] [address] [address] [address] Nilay Gibbs PROTIMEon 09-27-2021 INR Coag (PPP) [Relative time] 0.99 {INR} Normal [facility] Comment on above: Performed By: #### P T, PTT #### [facility] [address] [address] [address] Nilay Gibbs INR GUIDELINES SEE BELOW Normal [facility] Comment on above: Result Comment: PETRONA RED INR: 2.0 - 3.0 CONDITIONS NOT LISTED BELOW 2.5 - 3.5 FOR PROSTHETIC HEART VALVE REPLACEMENT 2.5 - 3.5 RECURRENT THROMBOSIS Performed By: #### P T, PTT #### [facility] [address] [address] [address] Nilay Gibbs PT Coag (PPP) [Time] 10.7 s Normal 9.0-11.6 [facility] Comment on above: Performed By: #### P T, PTT #### [facility] [address] [address] [address] Nilay Gibbs PTTon 09-27-2021 aPTT Coag (Bld) [Time] 29.1 s Normal 22.3-36.2 [facility] Comment on above: Performed By: #### P T, PTT #### [facility] [address] [address] [address] Nilay Gibbs Platelet mean volume Auto (B ld) [Entitic vol]Ordered By: Kristal Goldberg on 09-27-2021 Platelet mean volume (Bld) [Entitic vol] 8.7 fL 6.6-10.1 [facility] Platelet poor plasma interna tional normalized ratio (INR) by coagulation assay (relatOrdered By: Kristal Goldberg on 09-27-2021 INR Coag (PPP) [Relative time] 1.1 {INR} [facility] Comment on above: INR Therapeutic Rang e A) Pre- and Peroperative OAT started two weeks before surgery. NOT HIP SURGERY: 1.5 - 2.5 HIP SURGERY: 2 - 3 B) Primary and secondary prevention of venous THROMBOSIS: 2 - 3 C) Active venous thrombosis, pulmonary embolism and prevention of recurrent venous thrombosis: 2 - 3 D) Prevention of arterial thromboembolism including patients with mechanical heart valves: 3 - 4.5 INR Therapeutic Rang e A) Pre- and Peroperative OAT started two weeks before surgery. NOT HIP SURGERY: 1.5 - 2.5 HIP SURGERY: 2 - 3B) Primary and secondary prevention of venous THROMBOSIS: 2 - 3C) Active venous thrombosis, pulmonary embolismand prevention of recurrent venous thrombosis: 2 - 3D) Prevention of arterial thromboembolismincluding patients with mechanical heart valves: 3 - 4.5 Platelets Auto (Bld) [#/Vol] Ordered By: Kristal Goldberg on 09-27-2021 Platelets (Bld) [#/Vol] 240 10*3/uL 150-450 [facility] Protein Auto test strip (U) [Mass/Vol]Ordered By: Kristal Goldberg on 09-27-2021 Protein (U) [Mass/Vol] Negative Negative [facility] Protein [Mass/volume] in Ser um or PlasmaOrdered By: Kristal Goldberg on 09-27-2021 Protein [Mass/Vol] 6.5 g/dL 6.1-7.9 [facility] RBC Auto (Bld) [#/Vol]Ordere d By: Kristal Goldberg on 09-27-2021 RBC (Bld) [#/Vol] 4.52 10*6/uL 3.90-5.[address] [facility] Serum or plasma alanine marquez otransferase measurement without P-5'-P (enzymatic activiOrdered By: Kristal Goldberg on 09-27-2021 ALT No additional P-5'-P [Catalytic activity/Vol] 22 U/L 10-60 [facility] Serum or plasma albumin/glob ulin mass ratioOrdered By: Kristal Goldberg on 09-27-2021 Albumin/Globulin [Mass ratio] 1.7 {ratio} [facility] Serum or plasma alkaline kimi sphatase measurement (enzymatic activity/volume)Ordered By: Kristal Goldberg on 09-27-2021 ALP [Catalytic activity/Vol] 72 U/L 32-92 [facility] Serum or plasma aspartate am inotransferase measurement (enzymatic activity/volume)Ordered By: Kristal Goldberg on 09-27-2021 AST [Catalytic activity/Vol] 24 U/L 10-42 [facility] Serum or plasma calcium isabel urement (mass/volume)Ordered By: Kristal Goldberg on 09-27-2021 Calcium [Mass/Vol] 9.6 mg/dL 8.2-10.2 [facility] Serum or plasma chloride airam surement (moles/volume)Ordered By: Kristal Goldberg on 09-27-2021 Chloride [Moles/Vol] 98 mmol/L 95-114 [facility] Serum or plasma creatine kin ase MB (CKMB)/total creatine kinase (CK) ratio by calculaOrdered By: Kristal Goldberg on 09-27-2021 CK.MB Calc [Catalytic fraction] 1.7 % 0.00-2.50 [facility] Serum or plasma creatine kin ase MB measurement (mass/volume)Ordered By: Kristal Goldberg on 09-27-2021 CK.MB [Mass/Vol] 3.1 ng/mL 0.6-6.3 [facility] Serum or plasma glucose isabel urement (mass/volume)Ordered By: Kristal Goldberg on 09-27-2021 Glucose [Mass/Vol] 94 mg/dL 70-100 [facility] Comment on above: ADA recommended refe rence range Random Glucose Reference Range is dependent on time and content of last meal. Glucose of more than 200 mg/dL in a nonstressed, ambulatory subject supports the diagnosis of Diabetes Mellitus. ADA recommended refe rence rangeRandom Glucose Reference Range is dependent on time and content of last meal. Glucose of more than 200 mg/dL in a nonstressed, ambulatory subject supports the diagnosis of Diabetes Mellitus. Serum or plasma potassium me asurement (moles/volume)Ordered By: Kristal Goldberg on 09-27-2021 Potassium [Moles/Vol] 3.9 mmol/L 3.5-5.1 [facility] Serum or plasma sodium measu rement (moles/volume)Ordered By: Kristal Goldberg on 09-27-2021 Sodium [Moles/Vol] 135 mmol/L 136-146 [facility] Serum or plasma total biliru bin measurement (mass/volume)Ordered By: Kristal Goldberg on 09-27-2021 Bilirubin [Mass/Vol] 0.8 mg/dL 0.3-1.2 [facility] Serum or plasma total carbon dioxide measurement (moles/volume)Ordered By: Kristal Goldberg on 09-27-2021 CO2 [Moles/Vol] 24.8 mmol/L 22.0-30.0 [facility] Serum or plasma urea nitroge n measurement (mass/volume)Ordered By: Kristal Goldebrg on 09-27-2021 Urea nitrogen [Mass/Vol] 13 mg/dL 9-23 [facility] TROPONIN, HIGH SENSITIVITYon 09-27-2021 HSTROP 4.5 pg/mL Normal 4.0-76.1 [facility] Comment on above: Result Comment: CUT- OFF POINTS HAVE BEEN ESTABLISHED BASED ON THE FOURTH UNIVERSAL DEFINITIONS OF MYOCARDIAL INFARCTION. THE UPPER REFERENCE LIMIT (URL) OF TROPONIN, DEFINED THE 99TH PERCENTILE OF cTnI DISTRIBUTION IN A REFERENCE POPULATION, HAS BEEN CONFIRMED THE DECISION THRESHOLD FOR DC DIAGNOSIS. Performed By: #### C MP #### [facility] [address] [address] [address] Nilay Gibbs Troponin I.cardiac [Mass/vol ume] in Serum or Plasma by High sensitivity methodOrdered By: Kristal Goldberg on 09-27-2021 Troponin I.cardiac High sensitivity method [Mass/Vol] < 3 pg/mL 0-20 [facility] Urine appearanceOrdered By: Kristal Goldberg on 09-27-2021 Appearance (U) Clear Clear [facility] Urine colorOrdered By: Aurora Goldberg on 09-27-2021 Color (U) Yellow Yellow [facility] Urine glucose measurement by automated test strip (mass/volume)Ordered By: Kristal Goldberg on 09-27-2021 Glucose Auto test strip (U) [Mass/Vol] Normal mg/dL Normal [facility] Urine hemoglobin detection b y automated test stripOrdered By: Kristal Goldberg on 09-27-2021 Hemoglobin Auto test strip Ql (U) Negative Negative [facility] Urine leukocyte esterase det ection by automated test stripOrdered By: Kristal Goldberg on 09-27-2021 Leukocyte esterase Auto test strip Ql (U) Negative Negative [facility] Urine nitrite detection by a utomated test stripOrdered By: Kristal Goldberg on 09-27-2021 Nitrite Auto test strip Ql (U) Negative Negative [facility] Urobilinogen Auto test strip (U) [Mass/Vol]Ordered By: Kristal Goldberg on 09-27-2021 Urobilinogen (U) [Mass/Vol] Normal mg/dL Normal [facility] pH Auto test strip (U)Ordere d By: Kristal Goldberg on 09-27-2021 pH (U) 1.005 [pH] 1.001-1.030 [facility] pH (U) 5.5 [pH] 5.0-9.0 [facility] IntraOperative Documentson 0 03-26-2021 IntraOperative Documents [id number]#[id number]:12 7 Normal [facility] Coding Summary.on 03-25-2021 Coding Summary. CD:[id number] Gh0bWw +PGhlYWQ+ZX8IQLYwD54gsJDxw Q0MY1pLYQ6SQDWGCVWEQW0BKV4 bmHR6HSjqV3WnicDm HyclqQOkKS26AUl1PHO0dDfgUX uscA4caRQtE5u6OaIjWA05oC78 MHewBJZrVsX1TsIsldwbpQJe E5nyYzXwkDXoCxe+PHRhYmxlIH ifOSRwUTltYLXcLhBtmGyaJF0l Pc8mLUWfWEWuiMnxvIRcJgQj g1aaIIOkJUmeAE1bxXdmD3EhvJ J7HKFwk0w5Rj10kZB+PHRkIHN0 jLbbKZkhl496LhRgt6zoFNR2 sAHeCLnrLFS3B35fv6I1KZYeML AgMHL6jEY1zV2pcJtdwlgiL2Qc rRDyCxY1GQW9tQNixT4jeDss rfhwmX1yVqu+R20WLM6BQAKING 8NFgr3J0CsUwuyvZT+HO14QBJh JO09zJHquVJzp4onbMv8ZlIr QUCcCDW8jLgqQJrqn4SqYNJdD5 2ibBHpe9N8RNAxmMoguVYzCjUp nHS5wD7rVAydeezns3pplhdh Wucyz4ytuo71pM05S02xDFqwQM EbUUA4RSFeIGTaoOtwyd6elJ5x Ii8+EYwkl0zxn1yshSv1EbUw MBSmxnLuhXyzGHC1y7FgHm03C0 BtqBpot2CdGbh6gg01nJMjz6P5 pTY1VWgsEDJbxE4zEPcvVlD9 ZUEdWmUzvP62eGJwHOkaXw8trT zhwUipMC1gKZYizkdiJHNnmE8v EYHlmESbbVnmMD7qBNOhxday l287XlUnYWT8WKPdaOOjW6MmsW 7iEgDeTUTbUPFsK5IqoJQpVXsv B790ZGxzFkO8VAWhzfRbN2Rh HIUpmYvsXuP0k8X3Cu9Vu1Wpqr xrLEG8JNovGPTyDlI9GvHoViI9 D5EsQda1OLSvjEldNN3lT3Oe GEPakkckufcvvID4YFZiJUEwdN 15oEQdRUcwUi4gc2A4t747XGEh SSBmrD77Fg5ceKxaZXQtpGUT rR8fkccxs3eiyhbuUnGeKEZuRX w8DIg7IAArbGddJnNtRJK9FlL7 SUY7oZBvkO7ncOrjauhfmM6k Oyc+N00jaT8hDWB9EOA4fbkyDF XvruQcBQ81QL93O3PjOaqzvQDf bGU+ZMYcauTejNurGX2aUvWc t2vog5HnMEwvI3TjFELlKQdyNk u9BHYcMGC2bFT2tV6aIJWmGEph b4K7tXT6S7QxzgPiuu6nx3et SMEgCMabC97quUUzm0N3KURxcA R7HNBmdYzxGdFjaV69Wns+PGNv oCkma6JtIrfrh5fkp8ifkYb2 TvYkNDSlwhCicFgqYZI1n0OvGj 69L34wKMieJUSdQSWsZZPxLALq fDfsop4gxW7cBg5+PGNvbCB3 sUD8fF4cLDJaLhC6EPznO485Cn JtsVWeNarow2qsx6gyvKm8BvKw BWFttgPpgTovAYO5m8XrZi61 J73mKFshGXKgPTFoDOIuWDJsnB nbgt8ckN9qGd9+BO4ig9ftfv67 cV19rJE+ZAIcOAI8fTkmPVen USElzK7lTLomFzM7UCMnLlIckM 52iBPfCPkzPj0jkQtozKtuWD5f ASLpknmeg610OyLuv6eaHVGo bDVuYOmhUHT8K33on4P3KJHxWP PfGHJ5aKQ2iN7dcDesniagvSMs cBtakvErwNlvWOlhXNhrE497 IHRvcDsnPlBhdGllbnQgTmFtZT a5X6MgWsv2QQYpkNpjZE3haNUs AKguIr4nxQaxiNoeGD8nWFGw krmtx842MrFei1icJWZsuZOsSB vfWAH7L56oz8O1EYLoFEYzTGP3 lLK5gF6upRdfquiqgCHkmDel nfTthJjqUKptNWylR794ZPXuvT gwYnYaiwKgNECaoPX5EM13KC92 rVCdb5E1dBC5P3PpWNEqcwuy clclxAY8SIBzKEOppA77Ff7gdX gaSd1gNPSqDNU4FVSfxAYdQ4Xq jW1pEmVbFTKxZDSnG8SyvOAs FXkwN063ZTdaCwG8JCQfokMwY0 BgMWGtrJacFeQ2e1O3Wf8OO4M0 YD19FO04aOVez7L7nTT0C2Di YDRbdrqzlapwiZV6TNHqKAPbpB 90Nb4tlFznLr9nQCEzHHL6INHl aXSzV9EeeG5aLjTcMJTaUYDp G8HqpIWaIOhiE424PXzyGtT6XW OdczKkS4SiUTLzsBwpZwA4z9L2 Fq3QGZn5JC78IP42kZTor2J3 xGB1F7JiYICjrorvlptkbUZ7KI SvQVOetI10Oa9dsNekVp5lAXBg NLW3GFEkiKIfU1QmwM8mKmZn YWOjMHHiL1QgoRDhVBgvQ192WR wePpQ0IPYmdrAoL1SfRVBqsZts HhL7r9L3So6OFGXrBS89ZBF3 pWC4AL87II01H5CbUmlsjRJnhZ U+PHRhYmxlIHdpZHRoPScxMDAl BaPseMhuNC1fDa2rZMDqIHUy kYzulPLzPdEkw0tpEGYiWIrtYX 5oxQhjG4EutEP4NZQtq8z8Eq64 H20xB2HyjLK+UYQppPX6oRD3 dN2qBnUwTdL2CJkbF034LsZakM MrMdsuk3fte6wcsTn6RyQ1VZKc mkHswLbkMAK4e0NfXp92Z78a IHdpZHRoPSIxNSUiIHZhbGlnbj 0cnG5bQt5+QEYrvCG0hKJ6wC7i SyFoDfT9UZqlK938LiDchDNc Qdeqm1hvj6vqnZo3LkQgGYOevi JpqOqfMMR2p0JnJz04Z1WgbBrl r0YgPwn2tz87dWKbf8N1uMO9 B7SjOESbknvdyIAkeTepFN5lHJ BhkrfiYPYusA1iCZVhZ5h8LjKq EeP2DOirX1WfsyW6HHTxwAEp KEstQLM2I53hw7L5MDZrUETbVF W6cMX4kL1knNbemdhwiXSqpHoh mhWoiHliCTavJQjyY546WTRp lGhnFLJonK3rHBSwpRMneQwlUN 4wNTBpbjsnPlJPSFJCQUNIRVIs VXOXQD3vNEatpRM+PHRkIHN0 pJcpVPozPPKuyD3wEODvY0u9Yo HhMvN6EXhaU1UxUVWjmcnvFb04 wU0jFjEqCuV6NVjgG7ZunqZ9 ITGidNPtXVmkTVS1B71iv4M5NN QqLGQaXAT2fPD3kY1kfVkwdkkj bGVmdDsgdmVydGljYWwtYWxp R492ATNopXhmTkIpDcJ4TxA8PP O6V0YuZaa1CFLqlPtoYA5tsBTq TWsfEq9umKxhbLhmFC2fZJHt pmtvUYLdeB5kCBFpuVMnwSvuTG 3bCFLgexdym401YoJtSKG8EBQo kBQhB2JloY7zHrJvHEZaLBHc L8FzzVAySUwmD664YIpeMpC4SA TtptHyI6EaMKDmaKmxTaX8n6T3 Ks2lUGERSBHdniwveLM+PHRk XSC3iEwvSBbdFRAofS6gQHAwU3 p9XyLoYkP8KTxwV3YmLJOgwmve Bg27oQ3wYuPfQxE2CLgdO0Tg cuF9INIekIFmTZseJTZ1B87bu1 D0LNOiYLLrDLG2rPH8tQ8dcOcm bjogbGVmdDsgdmVydGljYWwt IYjoF934KAQmdZseSw2wcIC0D5 YiQjz9ZOEhiUnyVR0vnFUfLUyl Wr2hrNjyeDrtBX0wEQJitdye GNRugB3vUWNiiPWxtIdtQX2pBT Xkdtzwb487CvAnFLE2UJWooBQs M0VbhR2fMwXcGXZxRFXqA4Yn gUQfHOvzV709MIubCyV2QBHujs BtQ9WmPJEoePzlEuK7i9F8Fr1V tXE2hWT0l5Y8M4OzhSWkHRL0 KOA1tissbuc9X6ViEanfzIK+PC 84RWToQK94wWZipOUym5mxqSe2 AoKsCCYcZOF4fFqpOGnwf1Sm ZAIdZ74xmNBue6W1EYDdzCwsdP NxSpNfnVD2uU9jNIzdzdrgt8gu styfPycld3chjd80rH44B18m IHdpZHRoPSIzMCUiIHZhbGlnbj 8yoI8zQn7+JSEjsZK1oHV2kZ3v WcNuPfE8DRmgP681YpFdkDNe Pevri7bmd3kppOc3KiSxMKPquc JxaOkcEOV1f9McGj72D98kBEis ICFiZFYvOXXiFBGobKtyll8n zM2eJr0+WS4di0ghku04qG50zQ I+REEzTOX0tVywDTvtYNOrgR6j QPkqLfT1VHBaOzRzaH65uOKe HPwcVc6yeYcaxOqbPS6dGBJrnf tcd561JuOnt6jbGLCpoKZwJEmu ELJ3M70iw2R5LWRvMWDjGKD9 zNK4dS1ztByfzdkyhCRcfBlyiq BjfNtnYApcACzhA997ECDsrNxh JoBupRHsU8mjxfRREM3uIdgk dGQ+FCXwEHK1rBtbFWuyLKJtbL 3dJDQqC6c5BmOgWbY1FHcmC0Ay phY5VCCfeMDoVCFddTIRgQ1y cqffu7sjrdslZrQwOPEgZYx3QR s6SMTsrQrmOoLsZMP7JlQ4UMC9 wHWzwM1qoBcfwbpcjF7qJdc+ RklOOjwvdGQ+EMFiGCD4iHcxCD jmSTEmnO9kORHxC6a8JuIlVrE9 ENxkB3FeslP0CTKdpITyIJJf eYJRlV1cethie0ezketuVuAkRH KjZZv1NHg0WDAhpXwmHjBbTGZ8 XxS7WNU2oYKrkP1ssQvajqoe uP4fTmu+TVJOOjwvdGQ+PHRkIH P9mMiyTRbcMXNdrF8kZXCfO7i7 ZsTyWqL9WNkgN9DozkU5TXKt qIIqJGLojLIGqT9rmwrtr7pder vmKvFmWWSzIYe3JAf8DVOgkXbr JfOuXSJ9QbT5OAB7yRZvmT8o rTehornbsX2hQdy+EHL2LRW2SM 14JP02N6SaNboegMVuqJT+PHRh YmxlIHdpZHRoPScxMDAlJyBz dHls (more content not included)... Normal [facility] Main OR Intraoperative Recor don 03-25-2021 Main OR Intraoperative Record Normal [facility] Postoperative Documentson Postoperative Documents [id number]#1.00CD:127 [facility] Consent for Anesthesiaon Consent for Anesthesia [id number]#1.00CD:127 [facility] Discharge Instructionson Discharge Instructions [id number]#1.00CD:127 [facility] IntraOperative Documentson 0 03-20-2021 IntraOperative Documents [id number]#1.00CD:127 [facility] IntraOperative Documents [id number]#1.00CD:127 [facility] Preoperative Documentson Preoperative Documents [id number]#1.00CD:127 [facility] Preoperative Documents [id number]#1.00CD:127 Normal [facility] Consent for Treatmenton 03-01 Consent for Treatment [id number]#1.00CD:127 Normal [facility] H&P Updateon 03-19-2021 H&P Update [id number]#1.00CD:127 Normal [facility] Inpatient Patient Summaryon 03-19-2021 Inpatient Patient Summary [place] [id number] [facility] Clinical Discharge Instructions PERSON INFORMATION Name: NICK WRAY [facility]#:[id number] PHYSICIANS Admitting Physician: Tc Coffey DO Attending Physician: Tc Coffey DO PCP: LEYDI ACEVES MD Discharge Diagnosis: Comment: PATIENT EDUCATION INFORMATION Instructions: Post Op Patient Instructions - FT (CUSTOM); Shoulder Cryocuff Patient Instructions - FT (Custom); Jerica Coffey - After Your Shoulder Arthroscopy (Custom) Medication Leaflets: Follow up: MEDICATION LIST New Medications [id number], [address], [place] [id number], [phone] acetaminophen-oxycodone (Percocet 325 mg-5 mg Tab) 1-2 tab(s) Oral q4hr; as needed as needed for pain. Refills: 0. docusate (Colace 100 mg Cap) 1 Capsules By Mouth 2 times a day as needed for constipation. Refills: 0. ibuprofen (ibuprofen 600 mg Tab) 1 Tablets By Mouth every 8 hours as needed as needed for pain. with food or milk. Refills: 0. Medications to Continue with No Changes Other Medications allopurinol (allopurinol 100 mg Tab) 1.5 Tablets By Mouth every day. allopurinol (allopurinol 300 mg Tab) 1 Tablets By Mouth every day. alprazolam (alprazolam 0.5 mg Tab) 1 Tablets By Mouth 2 times a day as needed for anxiety. amlodipine (amLODIPine 5 mg Tab) 1 Tablets By Mouth every day. buPROPion (BuPROPion (Eqv-Wellbutrin SR) 150 mg/12 hours oral tablet, extended release) 1 Tablets By Mouth 2 times a day. carvedilol (carvedilol 6.25 mg Tab) 1 Tablets By Mouth 2 times a day. cholecalciferol (Vitamin D 1000 intl units Tab) 1 Tablets By Mouth every day. clonidine (cloNIDine 0.1 mg tab) 1 Tablets By Mouth every day. colchicine (colchicine 0.6 mg Tab) 1 Tablets By Mouth every other day. quetiapine (quetiapine 25 mg Tab) 1 Tablets By Mouth every day. tramadol (tramadol 50 mg oral tablet) 1 Tablets By Mouth every 4 hours as needed for pain. Comment: Michael [facility] Main OR PACU I Recordon 03-01 Main OR PACU I Record PACU Phase I Document Type FT Summary Primary Physician: Tc Coffey DO Finalized Date/Time: 03/19/21 18:31:21 Pt. Name: NICK WRAY/Sex: 1990 Male Med Rec #: [id number] Physician: Tc Coffye DO Financial #: [id number] Pt. Type: A Room/Bed: [facility]/ Admit/Disch: 03/19/21 07:37:47 - Institution: Case Times PACU I FT Pre-Care Text: Identifies barriers to communication and implements measures to provide psychological support Develops individualized plan of care, and ensures continuity of care Maintains patient's dignity and privacy, and maintains patient confidentiality Identifies and reports philosophical, cultural, and spiritual beliefs and values Identifies individual values and wishes concerning care Implements aseptic technique, and administers prescribed antibiotic therapy and immunizing agents as ordered Evaluates postoperative tissue perfusion Implements thermoregulation measures, and monitors body temperature Evaluates postoperative respiratory status Evaluates postoperative cardiac status Evaluates postoperative neurological status Assesses pain control, collaborated in initiating patient-controlled analgesia and implements alternative methods of pain control Verifies allergies, administers prescribed medications and solutions, evaluates response to medications Entry 1 In PACU I 03/19/21 14:18:00 Discharge from PACU 03/19/21 15:29:00 I Outcomes Met? Yes Last Modified By: LILY BENITES, JEFE Hudson 03/19/21 18:31:07 Post-Care Text: The patient demonstrates knowledge of the expected response to the operative or invasive procedure The patient's care is consistent with the individualized perioperative plan of care The patient's right to privacy is maintained The patient's value system, lifestyle, ethnicity, and culture are considered, respected, and incorporated into the perioperative plan of care The patient participates in decisions affecting his or her perioperative plan of care The patient is free from signs and symptoms of infection The patient has wound/tissue perfusion consistent with or improved from baseline levels established preoperatively The patient is at or returning to normothermia at the conclusion of the immediate postoperative period The patient's respiratory function is consistent with or improved from baseline levels established preoperatively The patient's cardiovascular status is consistent with or improved from baseline levels established preoperatively The patient's cardiovascular status is consistent with or improved from baseline levels established preoperatively The patient demonstrates and/or reports adequate pain control throughout the perioperative period The patient received appropriate medication(s), safely administered during the perioperative period Acuity Level PACU I FT Entry 1 Start Time 03/19/21 14:18:00 Stop Time 03/19/21 15:29:00 Acuity Level Acuity Level I Last Modified By: JEFE BAUTISTA RN 03/19/21 18:31:17 Finalized By: JEFE BAUTISTA RN Document Signatures Signed By: JEFE BAUTISTA RN 03/19/21 18:31 Normal [facility] Main OR PACU II Recordon Main OR PACU II Record PACU Phase II Document Type FT Summary Primary Physician: Tc Coffey DO Finalized Date/Time: 03/19/21 18:49:25 Pt. Name: NICK WRAY/Sex: 1990 Male Med Rec #: [id number] Physician: Tc Coffey DO Financial #: [id number] Pt. Type: A Room/Bed: [facility] Admit/Disch: 03/19/21 07:37:47 - Institution: Case Times PACU II FT Pre-Care Text: Identifies barriers to communication and implements measures to provide psychological support and determines knowledge level Develops individualized plan of care, and ensures continuity of care Maintains patient's dignity and privacy, and maintains patient confidentiality Identifies and reports philosophical, cultural, and spiritual beliefs and values Identifies individual values and wishes concerning care administers prescribed antibiotic therapy and immunizing agents as ordered, Evaluates postoperative tissue perfusion Implements thermoregulation measures, and monitors body temperature Evaluates postoperative respiratory status Evaluates postoperative cardiac status Evaluates postoperative neurological status Assesses pain control, collaborated in initiating patient-controlled analgesia and implements alternative methods of pain control Verifies allergies, administers prescribed medications and solutions, evaluates response to medications Entry 1 In PACU II 03/19/21 15:30:00 Discharge from PACU 03/19/21 18:10:00 II Outcomes Met? Yes Last Modified By: Eladia Suggs RN 03/19/21 18:49:23 Post-Care Text: The patient demonstrates knowledge of the expected response to the operative or invasive procedure The patient's care is consistent with the individualized perioperative plan of care The patient's right to privacy is maintained The patient's value system, lifestyle, ethnicity, and culture are considered, respected, and incorporated into the perioperative plan of care The patient participates in decisions affecting his or her perioperative plan of care. The patient is free from signs and symptoms of infection The patient has wound/tissue perfusion consistent with or improved from baseline levels established preoperatively The patient is at or returning to normothermia at the conclusion of the immediate postoperative period The patient's respiratory function is consistent with or improved from baseline levels established preoperatively The patient's cardiovascular status is consistent with or improved from baseline levels established preoperatively The patient's neurological status is consistent with or improved from baseline levels established preoperatively The patient demonstrates and/or reports adequate pain control throughout the perioperative period The patient received appropriate medication(s), safely administered during the perioperative period Finalized By: Eladia Suggs RN Document Signatures Signed By: Eladia Suggs RN 03/19/21 18:49 Normal [facility] Main OR Preoperative Recordo n 03-19-2021 Main OR Preoperative Record PreOp Document Type FT Summary Primary Physician: Tc Coffey DO Finalized Date/Time: 03/19/21 11:12:30 Pt. Name: NICK WRAY/Sex: 1990 Male Med Rec #: [id number] Physician: Tc Coffey DO Financial #: [id number] Pt. Type: A Room/Bed: AS1 Admit/Disch: 03/19/21 07:37:47 - Institution: Case Times PreOp FT Pre-Care Text: Verifies consent for planned procedure, identifies individual values and wishes concerning care, includes family members in perioperative teaching Entry 1 Patient Times. In Pre Surgery 03/19/21 07:45:00 Out Pre Surgery 03/19/21 09:27:00 Outcomes Met? Yes Last Modified By: MADONNA HOLT RN 03/19/21 11:12:25 Post-Care Text: The patient participates in decisions affecting his or her perioperative plan of care Finalized By: MADONNA HOLT RN Document Signatures Signed By: MADONNA HOLT RN 03/19/21 11:12 Normal [facility] Monitor Recordon 03-19-2021 Monitor Record [id number]:127 Normal [facility] Monitor Record [id number]:127 Normal [facility] Operative Reporton 2 Operative Report Patient: NICK WRAY Age: 31 years Sex: Male : 1990 Associated Diagnoses: None Author: Tc Coffey DO DATE OF SURGERY: 03/19/2021 SURGEON: Tc Coffey D.O. CANDLE MOLDER HAND: Cheko Baron CFA PREOPERATIVE DIAGNOSIS: Recurrent instability, labral tear, rotator cuff tear, rheumatoid arthritis with degenerative glenohumeral arthrosis, left shoulder POSTOPERATIVE DIAGNOSIS: Recurrent instability, circumferential labral tear, rotator cuff tear, chondrocalcinosis, rheumatoid arthritis with degenerative glenohumeral arthrosis, left shoulder PROCEDURE: 1. Examination under anesthesia, left shoulder 2. Left shoulder diagnostic arthroscopy 3. Arthroscopic anterior and posterior labral repair 4. Arthroscopic rotator cuff repair with allograft augmentation 5. Arthroscopic extensive debridement 6. Arthroscopic subacromial decompression with acromioplasty 7. Mini open subpectoral biceps tenodesis ANESTHESIA: General with regional block ANESTHESIOLOGIST: Felix Espinoza DO and García Sharp CRNA IMPLANTS: 1. Anterior labral repair: Arthrex knotless fibertack anchors x 6 2. Posterior labral repair: Arthrex knotless fibertack anchors x 2 3. Rotator cuff repair: Arthrex 4.75 mm biocomposite swivelock anchor x 1, Arthroflex dermal allograft secured by 6 ana and 3.5 mm biocomposite pushlock anchors x 2 4. Biceps tenodesis: Arthrex biceps tenodesis button OPERATIVE INDICATIONS: Nick is a 31-year-old [id number] male who has had persistent pain and dysfunction with his left shoulder despite conservative measures. 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 His shoulder still subluxes anteriorly with certain movements. He also has underlying rheumatoid arthritis and as a result has significant degenerative changes of the glenohumeral joint despite his young age apparent on his radiographs and MRI.. He understands any discomfort he has from these arthritic changes will likely not improve following surgery. MRI was also consistent with diffuse labral tearing and a full-thickness tear of the supraspinatus. He agreed to proceed with the above procedure after discussion of the risks, benefits, complications, alternatives, and expectations. Please see office notes for further details. PROCEDURE IN DETAIL: The correct operative site was identified and marked in the preoperative holding area. The patient was administered intravenous antibiotics in accordance with SCIP protocol. He was also administered 1 g of tranexamic acid intravenously. The patient was transported to the regional block room and administered a regional anesthetic nerve block by the anesthesiologist. The patient was transported to the operating room, placed supine on the operating room table, and administered general anesthetic. After adequate anesthesia was obtained, the patient was placed into the beachchair position with all bony prominences well-padded. The head was secured in the padded leach. Surgical timeout was performed with all required personnel present. The operative shoulder was examined and found to have full forward elevation, abduction, internal and external rotation. 2+ instability anteriorly and 1+ instability posteriorly with [id number]. The operative upper extremity was prepped and draped in the usual sterile fashion. The forearm was secured in the spider tenet pneumatic arm leach. Landmarks were demarcated. The glenohumeral joint was insufflated with 20 mL of injectable saline utilizing a spinal needle inserted posteriorly. A standard posterior portal was made. The arthroscope was introduced into the glenohumeral joint. An anterior portal in the rotator interval was made with outside-in technique using spinal needle localization. This was low in the interval and just above the upper border of the subscapularis tendon. A 7 mm cannula was placed at the anterior portal. A hook probe was inserted and a diagnostic arthroscopy was carried out with the findings as noted below: 1. Superior labrum and biceps: There is tearing at the biceps anchor extending into the entire superior labrum with significant fraying to the labrum. There was tearing along the biceps tendon adjacent to the anchor. The biceps tendon was appropriately positioned within the bicipital groove. 2. Anterior and posterior labrum: The entire labrum was detached from the glenoid including inferiorly. There was significant fraying to the labral tissue. 3. Articular surfaces: Humeral head had grade 2 changes anteriorly. There was no Hill-Sachs defect present. There was grade 4 changes to the posterior third of the glenoid with surrounding grade 2 changes. There was no glenoid bone loss anteriorly. 4. Rotator cuff: Subscapularis intact. Infraspinatus intact. There was full-thickness tearing at the midportion of the supraspinatus. 5. There was diffuse chondrocalcinosis present throughout the shoulder including the entire labru (more content not included)... Normal [facility] Comment on above: Result Comment: Elec tronically Signed By: Tc Coffey DO\.br\Date and Time Signed: 03/19/21 20:04 EST Operative Report SURGERY DATE: 2021 PREOPERATIVE DIAGNOSIS: Postoperative pain control requested by patient and surgeon POSTOPERATIVE DIAGNOSIS: Postoperative pain control requested by patient and surgeon OPERATION: Left interscalene block, utilizing ultrasound guidance and nerve stimulator ANESTHESIA: Local with monitored anesthesia care PROCEDURE: The patient was interviewed and examined. The anesthesia options were discussed including interscalene approach to the brachial plexus block for postoperative analgesia. The discussion included the procedure, risks, benefits, and alternatives to the procedure. The patient's questions were all answered and the patient elected to proceed with the brachial plexus nerve block for postoperative pain relief. The patient was placed on the monitors, electrocardiogram, non-invasive blood pressure machine and pulse oximetry. I.V. sedation was then administered with a total of midazolam 2 mg. The neck was prepped with ChloraPrep and sterilely draped. The anatomy was identified by ultrasound and then under ultrasound guidance and concomitant use of a nerve stimulator, the brachial plexus was identified with a 25 gauge 1 3/8 Stimuplex needle. Loss of twitch was observed at 0.5 milliamps. After attempted aspiration for blood, air and cerebrospinal fluid, a solution of an equal mixture of Naropin 0.5 and Xylocaine 2% containing 3 mg of Decadron, total volume of 18 mL was slowly injected with frequent aspirations without signs or symptoms of either intravascular or intrathecal injection. The patient tolerated the procedure well. There were signs and symptoms of a block within minutes after completion of the procedure. The patient then proceeded to undergo general anesthesia for the proposed procedure. Nathan Duque Jr. Dictated: 03/19/2021 [id number] Transcribed: 03/19/2021 [facility] Comment on above: Result Comment: Elec tronically Signed By: Mark Espinoza JR, DO.br\Date and Time Signed: 03/19/21 12:14 EST Outpatient Surgery Discharge Instructionon 03-19-2021 Outpatient Surgery Discharge Instruction [place] [id number] Patient Discharge Instructions PERSON INFORMATION Name: NICK WRAY Date of : 1990 Current Date: 03/19/2021 16:57:15 PHYSICIANS Admitting Physician: Tc Coffey DO Discharge Diagnosis: NICK WRAY has been given the following list of follow-up instructions, prescriptions, and patient education materials: IF UNABLE TO CONTACT YOUR PHYSICIAN AND YOU FEEL IT IS AN EMERGENCY, GO TO THE NEAREST EMERGENCY ROOM OR CALL 911 INA[address] SEAN M, have received the attached patient education materials/instructions and have verbalized understanding: May we do a follow up call? Yes No I was present when discharge instructions were given ____ Patient Signature _ Date Clinican/Nurse Signature Date Follow up: Pharmacy Information: You may receive a survey from [facility] asking you to rate your care experience. Your feedback is important and will help us understand what we do well and how we can improve the quality of care we provide to you, your loved ones and our community. It?s an honor to serve you. Thank you for choosing [facility] HERE ARE THE MEDICATION CHANGES THAT OCCURRED DURING YOUR HOSPITAL STAY New Medications [id number], [address], [place] [id number], [phone] acetaminophen-oxycodone (Percocet 325 mg-5 mg Tab) 1-2 tab(s) Oral q4hr; as needed as needed for pain. Refills: 0. docusate (Colace 100 mg Cap) 1 Capsules By Mouth 2 times a day as needed for constipation. Refills: 0. ibuprofen (ibuprofen 600 mg Tab) 1 Tablets By Mouth every 8 hours as needed as needed for pain. with food or milk. Refills: 0. Medications to Continue with No Changes Other Medications allopurinol (allopurinol 100 mg Tab) 1.5 Tablets By Mouth every day. allopurinol (allopurinol 300 mg Tab) 1 Tablets By Mouth every day. alprazolam (alprazolam 0.5 mg Tab) 1 Tablets By Mouth 2 times a day as needed for anxiety. amlodipine (amLODIPine 5 mg Tab) 1 Tablets By Mouth every day. buPROPion (BuPROPion (Eqv-Wellbutrin SR) 150 mg/12 hours oral tablet, extended release) 1 Tablets By Mouth 2 times a day. carvedilol (carvedilol 6.25 mg Tab) 1 Tablets By Mouth 2 times a day. cholecalciferol (Vitamin D 1000 intl units Tab) 1 Tablets By Mouth every day. clonidine (cloNIDine 0.1 mg tab) 1 Tablets By Mouth every day. colchicine (colchicine 0.6 mg Tab) 1 Tablets By Mouth every other day. quetiapine (quetiapine 25 mg Tab) 1 Tablets By Mouth every day. tramadol (tramadol 50 mg oral tablet) 1 Tablets By Mouth every 4 hours as needed for pain. PATIENT EDUCATION INFORMATION Instructions: [place], [place] [facility] AFTER YOUR SHOULDER ARTHROSCOPY 1. Diet: Begin with a liquid diet and advance to your normal diet as tolerated. 2. Activity: You may remove your sling for bathing and to perform gentle range of motion exercises for the hand, wrist, and elbow. Bend and straighten your elbow and wrist several times per day to minimize stiffness. Keep your elbow in close to your side when performing these exercises. Do not move your shoulder until instructed by your surgeon. Swelling after surgery is normal and this will gradually decrease over time. All sports activities are discouraged, at least until your first post-operative visit at which time we will discuss how and when to resume sports. 3. Driving: Driving is legal. If you are involved in an accident, you must be able to prove that you maintained full control of your vehicle. For this reason, it is advised that you do not drive until your strength returns. You should not operate a vehicle or heavy machinery if you are taking narcotic pain medication. 4. Pain: If pain persists despite rest, elevation, and medication, contact your surgeon. You will be given a prescription for pain medications prior to leaving the hospital. Please inform us of any known drug allergy. If you have any problems with the medication, it should be discontinued and our office notified. The sensation of splashing of fluid inside the joint is not cause for concern. It represents residual fluids from surgery and they will be absorbed. Elevation of the arm and application of an ice pack will minimize swelling and discomfort in the first 48 hours after surgery. 5. Bandage: Soft compression dressing has been applied to your shoulder. This dressing should be comfortable and absorb any leakage of fl (more content not included)... Normal [facility] Patient Education - [place] 0 03-19-2021 Patient Education - Text [place], [place] [facility] AFTER YOUR SHOULDER ARTHROSCOPY 1. Diet: Begin with a liquid diet and advance to your normal diet as tolerated. 2. Activity: You may remove your sling for bathing and to perform gentle range of motion exercises for the hand, wrist, and elbow. Bend and straighten your elbow and wrist several times per day to minimize stiffness. Keep your elbow in close to your side when performing these exercises. Do not move your shoulder until instructed by your surgeon. Swelling after surgery is normal and this will gradually decrease over time. All sports activities are discouraged, at least until your first post-operative visit at which time we will discuss how and when to resume sports. 3. Driving: Driving is legal. If you are involved in an accident, you must be able to prove that you maintained full control of your vehicle. For this reason, it is advised that you do not drive until your strength returns. You should not operate a vehicle or heavy machinery if you are taking narcotic pain medication. 4. Pain: If pain persists despite rest, elevation, and medication, contact your surgeon. You will be given a prescription for pain medications prior to leaving the hospital. Please inform us of any known drug allergy. If you have any problems with the medication, it should be discontinued and our office notified. The sensation of splashing of fluid inside the joint is not cause for concern. It represents residual fluids from surgery and they will be absorbed. Elevation of the arm and application of an ice pack will minimize swelling and discomfort in the first 48 hours after surgery. 5. Bandage: Soft compression dressing has been applied to your shoulder. This dressing should be comfortable and absorb any leakage of fluid or blood from your operated shoulder. Although the dressing may become moist or blood stained, this is not usually a cause for concern. If this persists, notify your surgeon. You may remove the dressing 48 hours after your surgery. If you have a bandage in your armpit, leave this in place until follow up. Apply betadine and band-aids to the small incisions once or twice daily as needed. 6. Incisions: The portals of entry may be sore and develop bruising over the next several days. The bruising eventually resolves and does not require any special care. Do not apply creams or lotions to your shoulder. Your portals will heal well on their own. 7. Bathing: You may shower 48 hours after surgery. Bathing or soaking in water should be avoided until your first post-operative visit. 8. Precautions: If you develop fever (101 degrees or above), increasing pain (not relieved by rest, elevation, ice, and medication as prescribed), redness or swelling in your shoulder or arm, please contact the office or the hospital. If you notice increased drainage from the operative portals after the third day, this should also be reported. 9. Return Visit: Your first post-operative follow-up appointment is generally between 7 and 14 days after discharge from the hospital. You will be given an appointment card with your appointment information. Do not hesitate to call the office or the hospital if any problems or questions arise before your appointment. ___ Tc Coffey DO [facility] [address] [place] [address] Reviewed: [facility] Progress Note-Physicianon Progress Note-Physician Patient: NICK WRAY Age: 31 years Sex: Male : 1990 Associated Diagnoses: None Author: Mark Espinoza JR, DO Postoperative Information Post Operative Note: Post Anesthesia Care Unit. Anesthetic utilized: General, Monitored anesthesia care. Health Status Allergies: Allergic Reactions (Selected) No Known Allergies Current medications: (Selected) Inpatient Medications Ordered Lactated Ringers IV Ivette 1000 mL 1,000 mL: 1,000 mL, IV, 100 mL/hr, Routine, Start date 03/19/21 9:01:00 EST, 10 hour(s), Total volume (mL): 1,000, 105.3 kg, 2.36, m2 Lactated Ringers IV Ivette 1000 mL 1,000 mL: 1,000 mL, IV, 150 mL/hr, Routine, Start date 03/19/21 8:30:00 EST, 6.7 hour(s), Total volume (mL): 1,000, 105.3 kg, 2.36, m2 Percocet 325 mg-5 mg Tab: 1 tab(s), Tab, Oral, q6hr PRN Pain 4-7 for 5 day(s), Stop date 03/24/21 9:54:00 EST, Routine, Start date 03/19/21 9:55:00 EST Percocet 325 mg-5 mg Tab: 2 tab(s), Tab, Oral, q6hr PRN Pain 4-7 for 5 day(s), Stop date 03/24/21 9:54:00 EST, Routine, Start date 03/19/21 9:55:00 EST Phenergan 25 mg/mL Injection: 12.5 mg = 0.5 mL, Injection, IV Push, q2min PRN Other (see comment) for 2 dose(s), Stop date Limited # of times, Routine, Start date 03/19/21 9:01:00 EST, 03/19/21 9:01:00 EST Prescriptions Prescribed Colace 100 mg Cap: 100 mg = 1 cap(s), Oral, BID, PRN for constipation, # 20 cap(s), Refills(s) 0, Pharmacy: [id number], 190, cm, 03/11/21 15:09:00 EST, Height/Length Dosing, 105.3, kg, 03/11/21 15:09:00 EST, Weight Dosing Percocet 325 mg-5 mg Tab: See Instructions, as needed for pain, 40 tab(s), Refill(s) 0, 1-2 tab(s) Oral q4hr, [id number], 190, cm, 03/11/21 15:09:00 EST, Height/Length Dosing, 105.3, kg, 03/11/21 15:09:00 EST, Weight Dosing ibuprofen 600 mg Tab: 600 mg = 1 tab(s), Oral, q8hr, PRN as needed for pain, with food or milk, # 60 tab(s), Refills(s) 0, Pharmacy: [id number], 190, cm, 03/11/21 15:09:00 EST, Height/Length Dosing, 105.3, kg, 03/11/21 15:09:00 EST, Weight Dosing Documented Medications Documented BuPROPion (Eqv-Wellbutrin SR) 150 mg/12 hours oral tablet, extended release: 150 mg = 1 tab(s), Oral, BID, Refills(s) 0, Anxiety Vitamin D 1000 intl units Tab: 25 mcg = 1 tab(s), Oral, Daily, Prophylaxis allopurinol 100 mg Tab: 150 mg = 1.5 tab(s), Oral, Daily, Refills(s) 0, Gout pain allopurinol 300 mg Tab: 300 mg = 1 tab(s), Oral, Daily, Gout pain alprazolam 0.5 mg Tab: 0.5 mg = 1 tab(s), Oral, BID, PRN for anxiety, Refills(s) 0, Anxiety amLODIPine 5 mg Tab: 5 mg = 1 tab(s), Oral, Daily, Refills(s) 0, High blood pressure carvedilol 6.25 mg Tab: 6.25 mg = 1 tab(s), Oral, BID, Refills(s) 0, High blood pressure cloNIDine 0.1 mg tab: 0.1 mg = 1 tab(s), Oral, Daily, Refills(s) 0, High blood pressure colchicine 0.6 mg Tab: 0.6 mg = 1 tab(s), Oral, Every other day, Refills(s) 0, Gout pain quetiapine 25 mg Tab: 25 mg = 1 tab(s), Oral, Daily, Refills(s) 0, Insomnia tramadol 50 mg oral tablet: 50 mg = 1 tab(s), Oral, q4hr, PRN for pain, Refills(s) 0 Problem list: All Problems Controlled gout / SNOMED CT 824589462 / Confirmed Rheumatoid arthritis involving both hands / SNOMED CT 9274273028 / Confirmed RCT (rotator cuff tear) / SNOMED CT 5305162275 / Confirmed Resolved: HTN (hypertension) / SNOMED CT 1814687350 Physical Examination Intake and Output Denies significant n/v and is tolerating p.o. Vital Signs (last 24 hrs) Last Charted Temp Oral 36.5 DegC (MAR 19 08:15) Heart Rate Apical 78 bpm (MAR 19 08:15) Resp Rate 11 br/min (MAR 19 15:24) SBP 118 mmHg (MAR 19 16:40) DBP 72 mmHg (MAR 19 16:40) SpO2 97 % (MAR 19 16:40) Pain assessment: Pain Assessment 03/19/2021 16:34 EST Preliminary Pain Scale 8 Primary Pain Location Shoulder 03/19/2021 15:33 EST Preliminary Pain Scale 9 03/19/2021 15:33 EST Pain Symptoms Self Report Yes, able to self report Primary Pain Location Shoulder Primary Pain Laterality Left Patient Preferred Pain Tool Numeric rating Numeric Pain Scale 9 Numeric Pain Score 9 03/19/2021 15:24 EST Primary Pain Location Shoulder Primary Pain Laterality Left Patient Preferred Pain Tool Numeric rating Numeric Pain Scale 8 Numeric Pain Score 8 03/19/2021 15:15 EST Primary Pain Location Shoulder Primary Pain Laterality Left Patient Preferred Pain Tool Numeric rating Numeric Pain Scale 5 = Moderate pain Numeric Pain Score 5 03/19/2021 15:03 EST Patient Preferred Pain Tool Numeric rating 03/19/2021 14:59 EST Primary Pain Location Shoulder Primary Pain Laterality Left Patient Preferred Pain Tool Numeric rating Numeric Pain Scale 7 Numeric Pain Score 7 03/19/2021 14:54 EST Primary Pain Location Shoulder Primary Pain Laterality Left Patient Preferred Pain Tool Numeric rating Numeric Pain Scale 7 Numeric Pain Score 7 03/19/2021 14:49 EST Primary Pain Location Shoulder Primary Pain Laterality Left Patient Preferred Pain Tool Numeric r (more content not included)... Normal [facility] Comment on above: Result Comment: Elec tronically Signed By: Mark Espinoza JR, DO\.br\Date and Time Signed: 03/19/21 17:44 EST Progress Note-Physician Patient: NICK WRAY Age: 31 years Sex: Male : 1990 Associated Diagnoses: None Author: Mark Espinoza JR, DO Postoperative Information Post Operative Note: Post Anesthesia Care Unit. Anesthetic utilized: General, Monitored anesthesia care. Health Status Allergies: Allergic Reactions (Selected) No Known Allergies Current medications: (Selected) Inpatient Medications Ordered Lactated Ringers IV Ivette 1000 mL 1,000 mL: 1,000 mL, IV, 150 mL/hr, Routine, Start date 03/19/21 8:30:00 EST, 6.7 hour(s), Total volume (mL): 1,000, 105.3 kg, 2.36, m2 cefazolin additive + premix generic diluent 100 mL: 2 gram = 100 mL, Soln-IV, IV Piggyback, PREOP, Routine, Start date 03/19/21 8:30:00 EST, 200 mL/hr, Infuse over 30 minute(s) famotidine 10 mg/mL IV Ivette: 20 mg = 2 mL, Soln-IV, IV Push, Once, Stop date 03/19/21 9:00:00 EST, Routine, Start date 03/19/21 9:00:00 EST, 03/19/21 8:30:00 EST Documented Medications Documented BuPROPion (Eqv-Wellbutrin SR) 150 mg/12 hours oral tablet, extended release: 150 mg = 1 tab(s), Oral, BID, Refills(s) 0, Anxiety Vitamin D 1000 intl units Tab: 25 mcg = 1 tab(s), Oral, Daily, Prophylaxis allopurinol 100 mg Tab: 150 mg = 1.5 tab(s), Oral, Daily, Refills(s) 0, Gout pain allopurinol 300 mg Tab: 300 mg = 1 tab(s), Oral, Daily, Gout pain alprazolam 0.5 mg Tab: 0.5 mg = 1 tab(s), Oral, BID, PRN for anxiety, Refills(s) 0, Anxiety amLODIPine 5 mg Tab: 5 mg = 1 tab(s), Oral, Daily, Refills(s) 0, High blood pressure carvedilol 6.25 mg Tab: 6.25 mg = 1 tab(s), Oral, BID, Refills(s) 0, High blood pressure cloNIDine 0.1 mg tab: 0.1 mg = 1 tab(s), Oral, Daily, Refills(s) 0, High blood pressure colchicine 0.6 mg Tab: 0.6 mg = 1 tab(s), Oral, Every other day, Refills(s) 0, Gout pain quetiapine 25 mg Tab: 25 mg = 1 tab(s), Oral, Daily, Refills(s) 0, Insomnia tramadol 50 mg oral tablet: 50 mg = 1 tab(s), Oral, q4hr, PRN for pain, Refills(s) 0 Problem list: All Problems Controlled gout / SNOMED CT 131836402 / Confirmed Rheumatoid arthritis involving both hands / SNOMED CT 0612679204 / Confirmed RCT (rotator cuff tear) / SNOMED CT 7564043399 / Confirmed Resolved: HTN (hypertension) / SNOMED CT 0576415162 Physical Examination Intake and Output Denies significant n/v and is tolerating p.o. No qualifying data available Respiratory: Adequate air exchange with hoahaoism of preoperative function.. Cardiovascular: Cardiovascular function is stable and has returned to preoperative levels.. Neurologic: Pt has returned to preoperative baseline.. Review / Management Condition: Stable. Assessment Anesthetic outcome No anesthetic complications noted. Plan Transfer/ Discharge: Patient can be discharged from PACU when criteria met. Condition good. Normal [facility] Comment on above: Result Comment: Elec tronically Signed By: Mark Espinoza JR, DO Consent for Procedure/Surger yon 03-18-2021 Consent for Procedure/Surgery [id number]:127 Normal [facility] Progress Note-Physicianon Progress Note-Physician Patient: NICK WRAY Age: 31 years Sex: Male : 1990 Associated Diagnoses: None Author: Mark Espinoza JR, DO Preoperative Information Anesthesia history: Patient History: Pt./ family denies any personal or family hx of problems/difficulties with anesthesia.. Re-eval prior to induction: Inital eval reviewed: No significant interval change, NPO 10 hours.. Review of Systems Constitutional: See nursing assessment.. Cardiovascular: Cardiac risk assessment performed. Pt. denies any significant change in their cv hx.. Respiratory: Pt. denies any signicant change in their respiratory status.. Neurologic: Pt. denies any acute neurological changes.. Health Status Allergies: Allergic Reactions (Selected) No Known Allergies, Allergies (1) Active Reaction No Known Allergies None Documented Current medications: (Selected) Inpatient Medications Ordered Lactated Ringers IV Ivette 1000 mL 1,000 mL: 1,000 mL, IV, 150 mL/hr, Routine, Start date 03/19/21 8:30:00 EST, 6.7 hour(s), Total volume (mL): 1,000, 105.3 kg, 2.36, m2 cefazolin additive + premix generic diluent 100 mL: 2 gram = 100 mL, Soln-IV, IV Piggyback, PREOP, Routine, Start date 03/19/21 8:30:00 EST, 200 mL/hr, Infuse over 30 minute(s) famotidine 10 mg/mL IV Ivette: 20 mg = 2 mL, Soln-IV, IV Push, Once, Stop date 03/19/21 9:00:00 EST, Routine, Start date 03/19/21 9:00:00 EST, 03/19/21 8:30:00 EST Documented Medications Documented BuPROPion (Eqv-Wellbutrin SR) 150 mg/12 hours oral tablet, extended release: 150 mg = 1 tab(s), Oral, BID, Refills(s) 0, Anxiety Vitamin D 1000 intl units Tab: 25 mcg = 1 tab(s), Oral, Daily, Prophylaxis allopurinol 100 mg Tab: 150 mg = 1.5 tab(s), Oral, Daily, Refills(s) 0, Gout pain allopurinol 300 mg Tab: 300 mg = 1 tab(s), Oral, Daily, Gout pain alprazolam 0.5 mg Tab: 0.5 mg = 1 tab(s), Oral, BID, PRN for anxiety, Refills(s) 0, Anxiety amLODIPine 5 mg Tab: 5 mg = 1 tab(s), Oral, Daily, Refills(s) 0, High blood pressure carvedilol 6.25 mg Tab: 6.25 mg = 1 tab(s), Oral, BID, Refills(s) 0, High blood pressure cloNIDine 0.1 mg tab: 0.1 mg = 1 tab(s), Oral, Daily, Refills(s) 0, High blood pressure colchicine 0.6 mg Tab: 0.6 mg = 1 tab(s), Oral, Every other day, Refills(s) 0, Gout pain quetiapine 25 mg Tab: 25 mg = 1 tab(s), Oral, Daily, Refills(s) 0, Insomnia tramadol 50 mg oral tablet: 50 mg = 1 tab(s), Oral, q4hr, PRN for pain, Refills(s) 0, Medications (3) Active Scheduled: (2) ceFAZolin + Generic Diluent 100 mL 2 gram 100 mL, IV Piggyback, PREOP famotidine 10 mg/mL IV Ivette [F] 20 mg 2 mL, IV Push, Once Continuous: (1) Lactated Ringers 1,000 mL 1,000 mL, IV, 150 mL/hr PRN: (0) Problem list: All Problems Controlled gout / SNOMED CT 265379841 / Confirmed Rheumatoid arthritis involving both hands / SNOMED CT 4556445053 / Confirmed RCT (rotator cuff tear) / SNOMED CT 5780552772 / Confirmed Resolved: HTN (hypertension) / SNOMED CT 3901800574, Active Problems (3) Controlled gout RCT (rotator cuff tear) Rheumatoid arthritis involving both hands Histories Past Medical History: No active or resolved past medical history items have been selected or recorded. Family History: No family history items have been selected or recorded. Procedure history: No active procedure history items have been selected or recorded. Social History Social & Psychosocial Habits Alcohol 03/11/2021 Use: Current Type: Beer Frequency: 1-2 times per month Substance Abuse 03/11/2021 Risk Assessment: Denies Substance Abuse Tobacco 03/11/2021 Type: Oral Previous treatment: None Comment: 1 can of chew a day - 03/11/2021 10:15 - Raul BENITES, [place] . Physical Examination No qualifying data available Airway: Normal oral/pharyngeal anatomy.. Respiratory: Adequate air exchange.. Cardiovascular: Adequate perfusion and function. Review / Management Results review: No qualifying data available . Plan [place] [employer]hesi[employer] (ASA) physical status classification: Class II. Anesthetic Preoperative Plan Anesthesia: General. , Regional Interscalene Block. Anesthetic plan, risks, benefits, and alternatives discussed with the patient and/or family. Pt. and/or family present and agree to proceed as planned.. Discussed the importance of abstaining from tobacco products, and offered counseling if desired. Normal [facility] Comment on above: Result Comment: Elec tronically Signed By: Mark Espinoza JR, DO.marianne\Date and Time Signed: 03/18/21 11:03 EST Coding Summary.on 03-17-2021 Coding Summary. CD:[id number] Gh0bWw +PGhlYWQ+SC4KRXVwT17uaXYnu F1FC2mAWR3CXUVMOZXVDJ2MNT2 ygGS1ICqcT8KfxaFf XhzmsUVnCS66GVn2LKX2nHhjZN qhlY7snIApO0g5JhYiJN28nR89 JStaNBFaXnE0ZsYzkfjwzKQc Q3gcYlNvuSMoTyp+PHRhYmxlIH ztJXTbHJnjSHMtKcRsbCdjAI3d Pd6xAJZgWGGqsNwclVOaFeZi p3krBCZsURczWV4tuUebL9KlqA K5MFAnf7m7Oi99pZK+PHRkIHN0 lNpiPYgyx199QmHae2erZGM5 vQLsQNyoDRU1C52rw6C1EKMbRA JqNCV9vDD2rG0czEhevdqmC9Js xSKxAaP0VSK7iVJouH7bqCwh jhmimU2vKtw+X50THM2WQWWAZY 1HIvw4T1TmSzbtdGA+CK25GMVt ED36xRKyzTNwg9ycaPf9OhOf WUCwPVQ8gCbuXNegu5HgERBbN7 6omTZxl4J1DBWkvVzipLWmDlTl yZR1eM9dPNrmxegbg9jlmeos Pffaq5quoz75jC65P22vGLszEN HxEJX2JJSfENIcqAlzeo4qxT1g Ii8+SXzrz8xij0ussEw0LwFv FAToxzNefHyfZMU7t8BbTg34A5 WtaIiqv4DcIiz7la39rWFpc1W7 aGW2EMkwGQTmlL4oRNqhNxB1 AWGsYzIjyL62wZClGFisQo0ovL dueYvpUU0jZJXqugxeNFHusU4j BPTunAZozUslOO2nNHJipgdj c975FkNyKIU6IAGubSPhE8PaiL 5xDlAmUTGjLONdS8BbcFWwLMfc M256SDdbBtY1ZDPzjtTzA6Yh SKYhuHivRbH0j5Y7Ia2Vu5Jjfi brPVJ4EVupILQnPqO3KpYhGeA8 A6SlVqq8RFEokFstNI4dX4Fr NESdyidbvqucuXN2JREaKFEufK 52aTWyEUnxCl5oy9F8b993LBFb LLWlcE46Kz1iqLouSSUhgOBP lS7wieopi2nltnfpUlGsTMMyDC g3ETb1PKTxrFnsNpYhJUT6KcZ1 WVE3hDHptH8ooJuucasuxW4k Oyc+D35juE0rUKN4APF1zgqeBN LrgaQaSO87PJ87K0VuBlglsYKp bGU+YSPiiwMmpNzzPB1gXaLa b6ugb5CbIGqfG3RaGOCfQOiySt n9DLLwMSR8tKS8aI0nMVXqHTux m5J8dVA7Q7BkebXpqu4jy9vd QNKwKAhjL00oqGRty8X5EAInnQ X1ZCCraKscCvGnaM22Ome+PGNv mYrft4WwLrzrs3mhd6dcaVk8 XxWrITUkveDlcRkkMVB7f5QaSr 51P91jKBldHWCpYUHlYZUqDZEb qSbzrk4mnY3tYz0+PGNvbCB3 iFT0nQ5bEVZeJhA2ZJekW061Ve ErfZWdCvqxp9lbo8tktXr3NsLd WNUsjzTnbLseDXZ8q7PdKr76 C66cXKngULKlKMLlDODnVLHimK lhof3zyV4pTg5+NG9ea2klhs13 bO42dYC+DKDeQYY2nJrhGMkr ONUjwU4yPGyuJtK1VCDoVmVpiR 43zUMyXPwuKu0xwTjknDqcVI7a ZZYlislsa245OcAmi3rpGSCn kQUlIJstUGL9X39jd1Z4LSBuTS YzROB7jGF1aY8gaMiktpigzDTd eCptexMhaQdzMMpbNIwnL240 IHRvcDsnPlBhdGllbnQgTmFtZT x9A2RpRuv2ZAQuwVyfIC0gfHYt CKokZs7nhVxzxMcwPD2aMBEy mmcza412LeLar1lcMUPlrAGfDC lzATR9M66jx8B4SKFyATZoCDL2 rEC6hB2xmXuarboroHVtxXqm bsLdxBfjOXuqKYvmU886VOMenM utErVlsgNzCEXrcAZ5EQ25ZT22 dERjc5B5cBM2I6GjPPEhgkhq yfjlcWH0INNgDJAfkK09Li5cpD qiWw6jUCYfYBN4HEXlfUBcH5Jx lO0lDkYoTGOmFIJdR0LwaQTl OJvhC520SIbnEcA5YKSeayKtX6 TmTWVigMgjUvE9l3N3Eo0XC3M9 MJ56PH63fBQcy8N0hNL0D2Jo DJFfvlfxsyaufPR4YCIvUPWrjH 92Ec7yiLtiCu6sDMNiGQO6WOZx vNRmQ4FsvY0mZmDrZDAgIBSj Y3YoaVYeLCitE143OEevYjI5ES PjgbPdN7FcNTFfiUdsWfX4z7I1 Gk7KEKy7ZI67CP74dCTes9R2 nEW5C6ByLMIytfszyxntcWQ5GA HkGIWsjN02Ee5ofFzbMn9yWBCw COH5XRGtrMJuT4ZyiW7oRmYr RLQfVYXzM8UfaMPgCPcjY201KZ meFzH9FCBzecLpP9SfQYOksUnj FqU5q3O1Kl5CZIGfWJ77XSB8 qPM1RE79JW09O1DsEbkygHMamZ U+PHRhYmxlIHdpZHRoPScxMDAl NtRviIevXM6aAv5zPVGeCEEv qKlzeNIsRxHts7bjAWOdZZivYP 2leXauQ3GdhHN4FJNyt3d5Fg27 O50wU1JyoDS+ZLBqqXI9zWN4 kA4mBuDhQkU5NQnwO454UnYjfM MiWezos6pqw3byvWf4FiK5XFTf gdXooAoyEAZ8l9XwVh67C35b IHdpZHRoPSIxNSUiIHZhbGlnbj 4duF3eYs9+CGMsiDF6aSU7sO4p FlUxPcW3LAgrS695EhNrcPTj Kudak5dox3zupZd7FpCjNIPplv XxdDvvQQN4d9QnHa58X7LstInw h6SqIgp8jq54xHNph5O8yKP9 U8PjVIHfkettbIDbyGkcOE7gBU JyhlblQRUhcT4bTCUqF1l4VhTi LtL2CNooY2LfsqG0XVOtsZOs XDfaIUB8K78xe6U2XNLrLBCtKR Y8bXB0xZ2obUwmpugvoSAcmYfz zvApwYcpXLlfKFzyN718LFZg iErsQBEffD9tNJHbeRFwaKpmDK 4wNTBpbjsnPlJPSFJCQUNIRVIs XZHHHT6uECcrjIQ+PHRkIHN0 nTflWAarNIIdvI5bNQOoH1o6Rf RaZvC8LNxrG8LoLVJidhruTk12 yT0cLgUlIyM2LYjyK5LqkcV5 NSRfgUKtNZftSLH9R85vz1X4UU MyZSMiEAV6eWX9rE8jqJxhrrey bGVmdDsgdmVydGljYWwtYWxp Q061CIKocYtgMoBdWxF3UdP3LY I7B5HfVwp9JSIbnXrtIA0ijKMe JIrjGu5vrXwpeZdlUA9zGLXk tzpfDWYxtK2pUHJumBKdeHdcLD 5fGRXoeclhk164SbKpNLZ0KNRg vCIxF3EffM4eVeVhXOKjFZVx W9MqwUBcFZrdS096WUntIgB1WX UjsvWfE1LkDHUanEgtIsD3m9T0 Za5uBVHESHCusnlpjWS+PHRk TIA4hNplLMcnKMAbpW8aKANjV8 v2SbWiKcU2ZAutF4FvETNqxlox Qz22cX4cYvTeVnV4KSzvI0Fm tkP8IMJodRPrVGnlPJN0M50eo6 M8NPKbFWLrPGE5lVR0qQ2ibRrv bjogbGVmdDsgdmVydGljYWwt DPytF686AHNxiYhrXo8btAY9Q9 GfUhe4SLAlgMcjUX7muSWqKWvy Cu2jgQavoPgyRU1sQXEzuwfc ZKEuiE7uKLKklPXveZofWO4uHT Oeugomr330KeZsWAF8WIStiUDp D0YzjA3mAsDwBDGyOIDlM2Lr fPBhRAcfL651WJuaCuT2WHRxhu XsQ1TeKROdnQnjWnA7k8A8Ga5M pEBqZNNwHX00SA74EJ81J1Rr PjwvdGFibGU+PHRhYmxlIHdpZH IkXBcmHDYcScDtbOznYI8cLq5e DDPfJGLkaSwrdKVaHyUta9eq VPVxEYzmUT8icApeF9QsaOA9PP Zml2y9Ki45L33kG6GngVO+PGNv kSN6vRV0dC8qQgCfXxR2QGcp Z339MdIjnKRxKbcsz6vlz4lkzS q6XjLhBAOrycUfmGlpIUE7k0Dt Yt66I68qKLstOTEsRQRgGQTk VREpySblpl4srO5kZt3+PGNvbC J6hGI7vI9dOyQyOxK9FDakT575 NbEijKUbAjtkR17yM8NtmZM+ GTDaQgr9SHTjgLhtCX3xzMKjQY iwIh4kSTS5FuMnApOfDIipC7Wa QXIvrqxpbfabxMN7CDJgNJRz oF31Vj3myUwbXs4kQKUfCMD7GW GotMKwE1KxsQ2qLlPdOBUoDLRl C3DmcTNeIXxjK011CEawWtH3 SVDvafJtY5ImXQPdlGytFmH0i7 V2Jn4UnTkcaAHkQO7iFkQoXKn5 U2UmNif3TUMmtDdqNM4lnNEs JGuhOh8tjCqhnVatNA5oTEDbjo ewn980JgMfl5oqJRUlpQDzVUpt GET0R75mj1X9ESImHVUbSKP0 hNH9kE3ydDsrcbnkkAVafTnuyj NroMvhODrzJZrcI704CLGomEci RoYNSpj7I8PnCuc7KDDqsDoc VQ6krLKaWAyaZq3exGridFhiKL 0bDPYwozrwt905RzSyb2wkPSSc qARpJXerFKC3R73vh6F9EIQs SIWsJWA4bFD0zM4umFxlxyiluR SduFehwqQjoQvpZAupDLzwV489 CIHfsRvuFo6MZtl9Q3PyCgv2 ATXpdWwaUS8doPWtCYqcNh9wjR vzbDmjDF0dDWWeqcthl311XyKl m3ilCLEmoMVjHLjuXBS2Z61d z2G0PNBnFUFePKT1pDO3dB2ulR lnbjogbGVmdDsgdmVydGljYWwt UGayG563ZGQojUunSgVijYCw OjwvdGQ+EL96lt47U9WbKjvoFh s3NZBkFOM6rVU8jJ9zFWTlDAtq d4U2vUY5M3PyipPkjk5ot6lx YXBz (more content not included)... Normal [facility] BUNon 03-11-2021 Urea nitrogen [Mass/Vol] 16 mg/dL Normal 5-21 [facility] Comment on above: Performed By: #### 2 [id number], [id number], [id number], [id number], [id number] ####[facility] [address] [place] [address] CBC w/Indiceson 03-11-2021 Erythrocyte distribution width (RBC) [Ratio] 14.0 % Normal 10.9-14.2 [facility] Comment on above: Performed By: #### 2 [id number] ####[address] [address] Hematocrit (Bld) [Volume fraction] 37.4 % Low 37.7-49.0 [facility] Comment on above: Performed By: #### 2 [id number] ####[address] [address] Hemoglobin (Bld) [Mass/Vol] 13.2 g/dL Low 13.5-17.5 [facility] Comment on above: Performed By: #### 2 [id number] ####[address] [place] [address] MCH (RBC) [Entitic mass] 30.1 pg Normal 27.0-34.0 [facility] Comment on above: Performed By: #### 2 [id number] ####[address] [place] [address] MCHC (RBC) [Mass/Vol] 35.3 g/dL Normal 31.4-36.0 [facility] Comment on above: Performed By: #### 2 384203 ####[address] [place] [address] MCV (RBC) [Entitic vol] 85.2 fL Normal 80.0-100.0 [facility] Comment on above: Performed By: #### 2 587778 ####[address] [address] Platelet mean volume (Bld) [Entitic vol] 8.7 fL Normal 6.4-10.8 [facility] Comment on above: Performed By: #### 2 [id number] ####[address] [address] Platelets (Bld) [#/Vol] 278.0 E9/L Normal 150.0-500.0 [facility] Comment on above: Performed By: #### 2 723393 ####[address] [address] RBC (Bld) [#/Vol] 4.4 E12/L Normal 4.3-5.9 [facility] Comment on above: Performed By: #### 2 735174 ####[address] [address] WBC corrected for nucl RBC Auto (Bld) [#/Vol] 5.3 E9/L Normal 4.0-11.0 [facility] Comment on above: Performed By: #### 2 934789 ####[address] [address] COVID-19 ([facility])on 03-11-2021 SARS-CoV-2 (COVID-19) RNA TALHA+probe Ql (Resp) Not detected Normal Not Detected [facility] Comment on above: Result Comment: This test result should be correlated with clinical presentations and medical history by a healthcare provider to determine its clinical significance. This assay was performed by a reverse transcriptase real-time polymerase chain reaction (rt PCR) method on the [employer] system. This test has been authorized only for the detection of nucleic acid from SARS-CoV-2, not for any other viruses or pathogens. This test has not been FDA cleared or approved. This test has been authorized by FDA under an Emergency Use Authorization (EUA). This test is only authorized for the duration of time the declaration on that circumstances exist justifying the authorization emergency use of in vitro diagnostic tests for detection and/or diagnosis of COVID-19 infection under section 564 (b) (1) of the Act, 21 U.S.C. 360 bbb-3 (b) (1), unless authorization is terminated or revoked sooner. Performed By: #### 2 [id number] ####[address] [place] [address] SARS-CoV-2 (COVID-19) RNA TALHA+probe Ql (Unsp spec) Pass Normal Pass [facility] Comment on above: Performed By: #### 2 [id number] ####[address] [place] [id number] Specimen source Nom (Unsp spec) Nasal Normal [facility] Comment on above: Performed By: #### 2 [id number] ####[address] [address] Consent for Treatmenton 03-01 Consent for Treatment [id number]:127 Normal [facility] Consent for Treatment [id number]:127 Normal [facility] Creatinineon 03-11-2021 Creatinine [Mass/Vol] 1.1 mg/dL Normal 0.5-1.3 [facility] Comment on above: Performed By: #### 2 493234, [id number], 1202727, 2687817, 0699207 ####[facility] [address] [place] [address] Glucoseon 03-11-2021 Glucose [Mass/Vol] 90 mg/dL Normal 55-199 [facility] Comment on above: Performed By: #### 2 773883, [id number], 7013402, 1063176, 8633900 ####[facility] [address] [place] [address] Lyteson 03-11-2021 Anion gap [Moles/Vol] 14 mmol/L Normal 6-16 [facility] Comment on above: Performed By: #### 2 476924, 13676089, 4704007, 6410715, 4826504 ####[facility] [address] [place] [address] Chloride [Moles/Vol] 105 mmol/L Normal 101-111 [facility] Comment on above: Performed By: #### 2 302671, [id number], 1079048, 7381462, 1880445 ####[facility] [address] [place] [address] CO2 [Moles/Vol] 26 mmol/L Normal 21-31 [facility] Comment on above: Performed By: #### 2 772900, [id number], 5007802, 5480427, 2627343 ####[facility] [address] [place] [address] Potassium [Moles/Vol] 3.9 mmol/L Normal 3.5-5.3 [facility] Comment on above: Performed By: #### 2 169943, 29705204, 6864451, 8752921, 8618067 ####[facility] [address] [place] [address] Sodium [Moles/Vol] 141 mmol/L Normal 135-145 [facility] Comment on above: Performed By: #### 2 560586, 49441479, 0057358, 6049422, 3861665 ####[facility] [address] [place] [address] eGFRon 03-11-2021 GFR/1.73 sq M.predicted among blacks MDRD (S/P/Bld) [Vol rate/Area] mL/min/{1.73_m2} Normal >=59 [facility] Comment on above: Order Comment: Order added by Discern Expert. Result Comment: eGFR is race adjusted. AA=. Performed By: #### 2 290274, [id number], 9698480, 3137104, 7766931 ####[place] [address] GFR/1.73 sq M.predicted among non-blacks MDRD (S/P/Bld) [Vol rate/Area] mL/min/{1.73_m2} Normal >=59 [facility] Comment on above: Order Comment: Order added by Discern Expert. Result Comment: Amusement Equipment Operator marilynn kidney disease could be indicated at eGFR's of less than 60 mL/min/1.73m2. Kidney failure is indicated at less than 15 mL/min/1.73m2. Performed By: #### 2 346187, [id number], 4441779, 2371374, 7941075 ####[place] [address] COVID-19 ([facility])on 03-10-2021 ADMITTED TO INTENSIVE CARE UNIT FOR CONDITION OF INTEREST:FIND:PT: Unknown Normal [facility] Comment on above: Performed By: #### 2 [id number] ####[place] [address] EMPLOYED IN A HEALTHCARE SETTING:FIND:PT: Unknown Normal [facility] Comment on above: Performed By: #### 2 [id number] ####[place] [address] FIRST TEST FOR CONDITION OF INTEREST:FIND:PT: Unknown Normal [facility] Comment on above: Performed By: #### 2 [id number] ####[place] [address] HAS SYMPTOMS RELATED TO CONDITION OF INTEREST:FIND:PT: Unknown Normal [facility] Comment on above: Performed By: #### 2 [id number] ####[place] [address] HOSPITALIZED FOR CONDITION OF INTEREST:FIND:PT: Unknown Normal [facility] Comment on above: Performed By: #### 2 [id number] ####[place] [address] STATUS:FIND:PT: Unknown Normal [facility] Comment on above: Performed By: #### 2 [id number] ####[facility] [address] [place] [address] RESIDES IN A CONGREGATE CARE SETTING:FIND:PT: Unknown Normal [facility] Comment on above: Performed By: #### 2 [id number] ####[facility] [place] [place] [address] Physician Orderon 01-31-2021 Physician Order [id number]:127 Normal [facility] XR SHOULDER 2V AP/TRUE AP LT on 11-29-2020 XR SHOULDER 2V AP/TRUE AP LT * * *Final Report* * * DATE OF EXAM: Nov 29 2020 10:26AM [id number] - XR SHOULDER 2V AP/TRUE AP LT / PROCEDURE REASON: multiple diagnoses * * * * Physician Interpretation * * * * EXAMINATION: XR SHOULDER 2V AP/TRUE AP LT Clinical history: Chronic pain RESULT: There is no fracture. Alignment is normal. Mild glenohumeral narrowing IMPRESSION: Mild glenohumeral arthrosis Repairer Shoe Sticks: [facility] Transcribe Date/Time: Nov 29 2020 10:37A Dictated by : ANNE VALDEZ MD This examination was interpreted and the report reviewed and electronically signed by: ANNE VALDEZ MD on Nov 29 2020 10:37AM EST [id number] [facility] US KIDNEY/BLADDERon 08-20-19 US KIDNEY/BLADDER * * *Final Report* * * DATE OF EXAM: Aug 19 2020 12:47PM [facility] 1055 - US KIDNEY/BLADDER / PROCEDURE REASON: Stage 3a chronic kidney disease (HCC) * * * * Physician Interpretation * * * * EXAMINATION: RENAL ULTRASOUND CLINICAL HISTORY: Renal disease TECHNIQUE: Sonography of the kidneys and urinary bladder was performed. Images were obtained and stored in a permanent archive. MQ: UR_1 COMPARISON: None RESULT: Right Kidney: -Renal length: 10.7 cm -Parenchyma: Normal parenchymal echogenicity. Normal parenchymal thickness. -Collecting system: No hydronephrosis. -Calculus: No echogenic, shadowing calculus. -Lesion: None. Left Kidney: -Renal length: 10.8 cm -Parenchyma: Normal parenchymal echogenicity. Normal parenchymal thickness. -Collecting system: No hydronephrosis. -Calculus: No echogenic, shadowing calculus. -Lesion: None. Bladder: Normal sonographic appearance. IMPRESSION: NORMAL SONOGRAPHIC APPEARANCE OF KIDNEYS AND BLADDER. 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 TECHNIQUE: XR HAND 3V PA/LAT/OBL RAMIRO Laterality: BILATERAL Number of different views (projections): 3 EACH M: XB_1 COMPARISON: 05/04/2017 RESULT: Again identified is an erosion at the radial aspect of the distal left fifth metacarpal with overlying soft tissue swelling, more pronounced on this examination than when compared to 05/04/2017. There is an erosion along the ulnar aspect of the fifth metacarpal distally. Associated severe joint space loss at these joints. Lucency in the left greater than right scaphoid, could reflect ganglia or erosive change. Question new erosion along the ulnar aspect of the fifth middle phalanx head. There is soft tissue swelling of the right long finger along the radial margin of the distal interphalangeal joint and proximal interphalangeal joint. Additional areas of soft tissue swelling along the radial aspect of the right fifth digit at the level of the distal interphalangeal joint and proximal interphalangeal joint, and along the dorsal aspect of the left hand at the level the metacarpophalangeal joints. Well-corticated ossification off the dorsal aspect of the carpus of the right wrist, potentially sequela of prior trauma. No other significant abnormality. IMPRESSION: Multifocal areas of soft tissue swelling involving the left and right hand as described, given patient's history could reflect multifocal gouty tophi, more pronounced then when compared to 2018. Unchanged erosive findings in the right greater than left hand and superimposed degenerative change. 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 Multiplanar reformatted images are provided for review. Dose modulation, iterative reconstruction, and/or weight based adjustment of the mA/kV was utilized to reduce the radiation dose to as low as reasonably achievable. COMPARISON: None HISTORY: ORDERING SYSTEM PROVIDED HISTORY: back pain TECHNOLOGIST PROVIDED HISTORY: back pain FINDINGS: BONES/ALIGNMENT: There is normal alignment of the spine. The vertebral body heights are maintained. No osseous destructive lesion is seen. DEGENERATIVE CHANGES: Limbus vertebrae L3. SOFT TISSUES/RETROPERITONEUM: No paraspinal mass is seen. IMPRESSION: Unremarkable non-contrast CT of the lumbar spine. Interpreted by: Mike Felipe MD Signed by: Mike Felipe MD 07/12/18 Final result Normal [facility] CT THORACIC SPINE WO CONTRAS Ton 07-12-2018 CT THORACIC SPINE WO CONTRAST EXAMINATION: CT OF THE THORACIC SPINE WITHOUT CONTRAST 07/12/2018 9:06 pm: TECHNIQUE: CT of the thoracic spine was performed without the administration of intravenous contrast. Multiplanar reformatted images are provided for review. Dose modulation, iterative reconstruction, and/or weight based adjustment of the mA/kV was utilized to reduce the radiation dose to as low as reasonably achievable. COMPARISON: None. HISTORY: ORDERING SYSTEM PROVIDED HISTORY: back pain FINDINGS: BONES/ALIGNMENT: There is normal alignment of the spine except mild levoconvex scoliosis. The vertebral body heights are maintained. No osseous destructive lesion is seen. DEGENERATIVE CHANGES: No gross spinal canal stenosis or bony neural foraminal narrowing of the thoracic spine. SOFT TISSUES: No paraspinal mass is seen. IMPRESSION: Unremarkable CT of the thoracic spine. Interpreted by: Mike Felipe MD Signed by: Mike Felipe MD 07/12/18 Final result Normal [facility] Vital Signs Date Time Vital Sign Value Performing Clinician Florentin quinn 01-01-2022 11:34-0400 Body weight 99.79 kg Delmy Boyle MD Work Phone: [facility] 01-01-2022 11:34-0400 Diastolic blood pressure 65 mm[Hg] Delmy Boyle MD Work Phone: [facility] 01-01-2022 11:34-0400 Heart rate 65 /min Delmy Boyle MD Work Phone: [facility] 01-01-2022 11:34-0400 Systolic blood pressure 102 mm[Hg] Delmy Boyle MD Work Phone: [facility] 12-10-2021 15:30-0400 Diastolic blood pressure 71 mm[Hg] MD Leydi Aceves Work Phone: [facility] 12-10-2021 15:30-0400 Heart rate 70 /min MD Leydi Aceves Work Phone: [facility] 12-10-2021 15:30-0400 Respiratory rate 16 /min MD Leydi Aceves Work Phone: [facility] 12-10-2021 15:30-0400 SaO2% (BldA) [Mass fraction] 98 % MD Leydi Aceves Work Phone: [facility] 12-10-2021 15:30-0400 Systolic blood pressure 113 mm[Hg] MD Leydi Aceves Work Phone: [facility] 12-10-2021 07:30-0400 Body temperature 98 [degF] MD Leydi Aceves Work Phone: [facility] 12-08-2021 15:45-0400 Body height 190.5 cm MD Leydi Aceves Work Phone: [facility] 12-08-2021 08:56-0400 Body weight 99.79 kg MD Leydi Aceves Work Phone: [facility] 09-27-2021 21:38-0400 Heart rate 68 /min MD Leydi Aceves Work Phone: [facility] 09-27-2021 21:30-0400 Diastolic blood pressure 79 mm[Hg] MD Leydi Aceves Work Phone: [facility] 09-27-2021 21:30-0400 Respiratory rate 20 /min MD Leydi Aceves Work Phone: [facility] 09-27-2021 21:30-0400 SaO2% (BldA) [Mass fraction] 100 % MD Leydi Aceves Work Phone: [facility] 09-27-2021 21:30-0400 Systolic blood pressure 135 mm[Hg] MD Leydi Aceves Work Phone: [facility] 09-27-2021 18:31-0400 Body height 190.5 cm MD Leydi Aceves Work Phone: [facility] 09-27-2021 18:31-0400 Body temperature 98 [degF] MD Leydi Aceves Work Phone: [facility] 09-27-2021 18:31-0400 Body weight 99.79 kg MD Leydi Aceves Work Phone: [facility] Encounters Encounter Date Encounter Type Care Provider Facility Start: 01-12-2023 End: 01-12-2023 ambulatory MIRI M HEMMER Not Available Start: 11-13-2022 ambulatory Delmy newton MD Work Phone: Rheumatology Comment on above: Prednisone Start: 11-13-2022 E-mail encounter fro m caregiver Delmy Boyle MD Work Phone: [facility] Start: 11-13-2022 Telephone encounter Delmy luna MD Work Phone: [facility] [place] Comment on above: Patient Request Start: 08-28-2022 ambulatory Nicola Castellon acility:[facility] Start: 08-14-2022 End: 08-14-2022 ambulatory DELMY BOYLE Facility:[facility] Start: 08-12-2022 End: 08-13-2022 ambulatory DELMY BOYLE Facility:[facility] Start: 07-24-2022 End: 07-24-2022 ambulatory MATIAS SALAS . Facility:[facility] Start: 06-28-2022 End: 06-28-2022 ambulatory ZHAO MAURER . Facility:[facility] Start: 06-25-2022 Refill Delmy newton MD Work Phone: Rheumatology Comment on above: Refill Request Start: 06-20-2022 End: 06-20-2022 ambulatory ISIS ZAMBRANO . Facility:[facility] Start: 05-31-2022 End: 05-31-[address] LEYDI ACEVES Facility:[facility] Start: 04-01-2022 Refill Delmy newton MD Work Phone: Rheumatology Comment on above: Refill Request Start: 03-31-2022 End: 03-31-[address] LEYDI ACEVES Facility:[facility] Start: 01-31-2022 End: 01-31-[address] LEYDI ACEVES Facility:[facility] Start: 01-14-2022 End: 01-14-[address] LEYDI ACEVES Facility:[facility] Start: 01-01-2022 End: 01-01-2022 ambulatory DELMY BOYLE Facility:[facility] Start: 01-01-2022 End: 01-01-2022 Patient encounter procedure Delmy Boyle MD Work Phone: Rheumatology Comment on above: Idiopathic chronic g out of multiple sites with tophus (Primary Dx); Encounter for long-term (current) use of medications; Stage 3 chronic kidney disease, unspecified whether stage 3a or 3b CKD (HCC) Start: 12-29-2021 End: 12-30-2021 ambulatory LEYDI ACEVES Facility:[facility] Start: 12-19-2021 Refill Delmy newton MD Work Phone: Rheumatology Comment on above: Refill Request Start: 12-07-2021 End: 12-10-2021 Evaluation and management of inpatient MD Leydi Aceves Work Phone: [facility] Start: 12-06-2021 End: 12-07-[address] LEYDI ACEVES Facility: Start: 10-19-2021 End: 10-19-2021 ambulatory ZHAO MAURER . Facility:[facility] Start: 09-27-2021 End: 09-27-2021 Emergency department patient visit MD Leydi Aceves Work Phone: [facility] Start: 09-27-2021 End: 09-27-2021 ambulatory ZHAO MAURER . 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 Start: 07-12-2018 End: 07-13-2018 Emergency department patient visit LEYDI ACEVES [facility] Procedures Date Procedure Procedure Detail Performing Clinician Start: 08-19-2020 Adult depression screening assessment Delmy Boyle MD Work Phone: Start: 07-12-2018 Ct lumbar spine w/o contrast material LEYDI ACEVES Start: 07-12-2018 Ct thoracic spine w/ o contrast material LEYDI ACEVES Plan of Treatment Date Care Activity Detail Author Start: 06-01-2026 Urine microalbumin profile [facility] Start: 08-13-2023 Serum Creatinine Serum Creatinine Cl [facility] Start: 01-01-2023 BP CONTROLLED (<130/80) BP CON TROLLED (<130/80) [facility] Start: 10-30-2022 Influenza vaccination C [facility] Start: 07-13-2022 End: 09-12-2022 Alanine aminotransferase [Enzymatic activity/volume] in Serum or Plasma ALT/SGPT Lab 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 Encounter for long-term (current) use of medications Expected: 07/13/2022 (Approximate), Expires: 09/12/2022 [facility] Work Phone: Comment on above: Expected: 07/13/2022 (Approximate), Expires: 09/12/2022 Start: 07-13-2022 End: 09-12-2022 Albumin [Mass/volume] in Serum or Plasma ALBUMIN BLD Lab 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 Encounter for long-term (current) use of medications Expected: 07/13/2022 (Approximate), Expires: 09/12/2022 [facility] Work Phone: Comment on above: Expected: 07/13/2022 (Approximate), Expires: 09/12/2022 Start: 07-13-2022 End: 09-12-2022 Aspartate aminotransferase [Enzymatic activity/volume] in Serum or Plasma AST/SGOT BLD Lab 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 Encounter for long-term (current) use of medications Expected: 07/13/2022 (Approximate), Expires: 09/12/2022 [facility] Work Phone: Comment on above: Expected: 07/13/2022 (Approximate), Expires: 09/12/2022 Start: 07-13-2022 End: 09-12-2022 C reactive protein [Mass/volume] in Serum or Plasma C-REACTIVE PROTEIN (CRP) Lab 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 Encounter for long-term (current) use of medications Expected: 07/13/2022 (Approximate), Expires: 09/12/2022 [facility] Work Phone: Comment on above: Expected: 07/13/2022 (Approximate), Expires: 09/12/2022 Start: 07-13-2022 End: 09-12-2022 CBC W Auto Differential panel - Blood CBC + DIFF Lab 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 Encounter for long-term (current) use of medications Expected: 07/13/2022 (Approximate), Expires: 09/12/2022 [facility] Work Phone: Comment on above: Expected: 07/13/2022 (Approximate), Expires: 09/12/2022 Start: 07-13-2022 End: 09-12-2022 CREATININE BLD CREATININE BLD Lab 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 Encounter for long-term (current) use of medications Expected: 07/13/2022 (Approximate), Expires: 09/12/2022 [facility] Work Phone: Comment on above: Expected: 07/13/2022 (Approximate), Expires: 09/12/2022 Start: 07-13-2022 End: 09-12-2022 Erythrocyte sedimentation rate SED RATE WESTERGREN Lab 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 Encounter for long-term (current) use of medications Expected: 07/13/2022 (Approximate), Expires: 09/12/2022 [facility] Work Phone: Comment on above: Expected: 07/13/2022 (Approximate), Expires: 09/12/2022 Start: 07-13-2022 End: 09-12-2022 Urate [Mass/volume] in Serum or Plasma URIC ACID BLOOD Lab 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 Encounter for long-term (current) use of medications Expected: 07/13/2022 (Approximate), Expires: 09/12/2022 [facility] Work Phone: Comment on above: Expected: 07/13/2022 (Approximate), Expires: 09/12/2022 Start: 04-23-2022 SERUM CREATININE SERUM CREATININE Cl [facility] Start: 03-01-2022 [facility] Start: 12-10-2021 [facility] Start: 12-07-2021 Hospital admission [facility] Start: 12-07-2021 Referral to [employer]aker [facility] Start: 10-30-2021 Influenza vaccination C [facility] Start: 08-19-2021 Adult depression scr eening assessment DEPRESSION SCREENING [facility] Start: 03-01-2021 DEPRESSION ASSESSMENT DEPRESSION ASS ESSMENT [facility] Start: 02-26-2008 ANNUAL PCP TEAM CRYSTAL ATTACHER MARILYNN DISEASE VISIT ANNUAL PCP TEAM CHRONIC DISEASE VISIT [facility] Start: 02-26-2008 BP CONTROLLED (<130/80) BP CON TROLLED (<130/80) [facility] Start: 02-26-2008 HIV SCREENING HIV SCREENING [facility] Start: 1995 COVID-19 VACCINE (#1) COVID-19 VACCI NE (#1) [facility] Start: 1990 COVID-19 VACCINE (#1) COVID-19 VACCI NE (#1) [facility] Start: 1990 HEPATITIS B (1 of 3 - 3-dose series) HEPATITIS B (1 of 3 - 3-dose series) [facility] Start: 1990 Hepatitis B Vaccine (1 of 3 - 3-dose series) Hepatitis B Vaccine (1 of 3 - 3-dose series) [facility] Patient Education [facility] Work Phone: Patient referral [facility] Work Phone: [facility] Immunizations Immunization Date Immunization Notes Care Provider Fa jackson 10-13-2018 influenza virus vacc ine, unspecified formulation Delmy Boyle MD Work Phone: [facility] Payers Date Payer Category Payer Self-pay 2021 Medicaid [employer] [id number] 2021-Present [phone] [address] [place] [address] Medicaid [id number] 2021 Medicaid [id number] 2018 Unknown [id number] 1990 Unknown [id number] 1990 Unknown [id number] 1990 Unknown [id number] 1990 Unknown [id number] 1990 Unknown [id number] 1990 Unknown [id number] 1990 Unknown [id number] 1990 Unknown [id number] 1990 Unknown [id number] 1990 Unknown [id number] 1990 Unknown [id number] 1990 Unknown [id number] 1959 Medicaid [id number] 1959 Unknown [id number] Unknown [facility] [id number] Unknown [id number] Social History Date Type Detail Facility Start: 05-04-2017 End: 01-01-2022 Tobacco smoking status [facility] Never smoked tobacco [facility] Start: 05-04-2017 End: 01-01-2022 Tobacco use and exposure User of smokeless tobacco [facility] History of tobacco use [facility] Start: 1990 Sex Assigned At Male C [facility] Start: 12-08-2021 Tobacco smoking stat us NHIS Smoker (finding) [facility] Start: 12-22-2021 End: 01-01-2022 Exposure to SARS-CoV-2 (event) Not sure [facility] Start: 08-13-2022 End: 08-14-2022 History of Social function [facility] Start: 08-13-2022 End: 08-14-2022 Tobacco use panel [facility] Adult Depression Screening Assessment 4 [facility] Start: 11-09-2019 Gender identity Identifies as male gender (finding) [facility] Start: 11-09-2019 Sexual orientation Heterosexual (fin ding) [facility] Goals Date Patient Goal Desired Activity /State Functional Status Date Assessment Result Facility 12-10-2021 Functional status Patient at Baseline [facility] Work Phone: 12-07-2021 Functional status Disability Sta tus Patient at Baseline [facility] Work Phone: Mental Status Date Assessment Result Facility 12-10-2021 Cognitive function Cognitive Sta tus Patient at Baseline [facility] Work Phone: Clinical Notes 04-25-2017 to 11-13-2022 Telephone Encounter - Delmy Boyle MD - 11/13/2022 7:09 PM EDTTelephone Encounter - Madonna Mitchell - 11/13/2022 12:04 PM EDTPatient Instructions Note Date & Type Note Facility 11-13-2022 Miscellaneous Notes The following approved medication requests have been transmitted electronically. Requested Prescriptions Signed Prescriptions Disp Refills predniSONE (DELTASONE) 5 mg tablet 21 tablet 0 Sig: Take 6 tab in AM on day 1 then reduce dose by 1 tablet every day until off Authorizing Provider: DELMY BOYLE MD Nick Wray is calling Delmy Boyle MD today stating that his PCP that is with [facility] is having technical difficulties and that their version of mychart is down along with the phone system. He needs a refill of a tapered prednisone sent to [facility] in [place], . Please advise. Patient has been identified by name and birthdate. Duration of symptoms: N/A Person calling: self Call patient at: at home [phone] (home) [phone] (cell) Was an appointment scheduled: No Closing statement: Results or non-symptom based questions: Thank you for calling [facility], your call will be returned within the next business day. [place]onna River documented in this encounter [facility] 08-14-2022 Note HNO ID: [id number] Author: Delmy Boyle MD Service: ? Author Type: Physician Type: Progress Notes Filed: 08/14/2022 5:15 PM Note Text: DX: chronic tophaceous gout, possible seronegative RA BRIEF RHEUM HISTORY First visit with me April 2017. Polyarthritis with several nodules mainly over lower extremity joints. A thick white discharge has drained from nodules on his knee and foot in the past. Diagnosed with gout at the age of 19 by his PCP after he presented with pain, swelling, warmth and erythema of the great toe. Treated with allopurinol but he would still have arthritic flares once every 4 months[address] gas plumbing inspector Dr. Jaime in [place] who did diagnostic knee aspiration which according to patient was positive for uric acid crystals. Treated with steroids and continued allopurinol. He has not seen Dr. Jaime since 2014. In 2014, he was hospitalized in [place] for acute polyarthritis. Saw gas plumbing inspector while in hospital who told him that he possibly had RA. Discharged on steroids. His PCP switched him from allopurinol to Uloric Jan 2017. He also takes colchicine prn. No reduction in frequency or severity of his joint flares with Uloric. In 2017, he has been hospitalized 7-8 times for acute joint flares. Each time he is treated with steroids. Hospitalized at [facility] Apr 2017 for acute flare of inflammatory arthritis of both knees and ankles. Improved with IV and oral steroids. Discharged on 9 day course of prednisone (starting dose of 50 mg daily). Noted to have synovitis on exam. EMS lasting less than 30 minutes. Has gel phenomenon with periods of inactivity. Sister diagnosed with lupus and fibromyalgia. Several maternal uncles (several) with gout. Cousin was diagnosed with RA at 10 years of age. THERAPIES/MEDICATIONS TRIED colchicine uric acid lowering agents: Uloric, allopurinol Tramadol Intermittent oral/IM glucocorticosteroids NSAIDs: ibuprofen, Aleve, indocin Injections in joints: none Injections in spine: none ASSESSMENT: Crystal proven gout. Other PMH: possible seronegative RA, CKD On allopurinol 400 mg qam and 300 qpm + colchicine 0.6 mg every other day Methotrexate 20 mg weekly held June 2019 due to anemia and elevated Cr. PLAN: 1. TOPHACEOUS GOUT -off Uloric with increase in his SUA from 5.7 to 11.1 mg/dL. He is unable to afford OOP costs of Uloric. -he has starting drinking ETOH again and has has a couple of gout flares. SUA elevated. He was advised to curtail/abstain from ETOH and sugary beverages. Will recheck SUA in 4 weeks and if it continues to be elevated, adjustment in his allopurinol dose may be necessary. -in meantime, continue allopurinol and colchicine at the present dose -I asked that he have labs done at least 3-4 days prior to next appointment (lab orders in EMR) 2. POSSIBLE SERONEGATIVE RA -no synovitis on exam -hold off on DMARDs for now. 3. LEFT SHOULDER ROTATOR CUFF TEAR/ADHESIVE CAPSULITIS/LABRAL TEAR -had steroid injection of the left shoulder. It relieved his pain for 1 week. -12/2020: he had left shoulder MRI that showed full thickeness tear of supraspinatus and infraspinatus tendons , findings c/w adhesive capsulitis and diffuse labral tearing. -01/30/2021: saw orthopaedist regarding his left shoulder. Surgery was recommended. -Mar 19: had left shoulder surgery by Dr. Tc Coffey at [facility]. No post op complications. Currently on PT - still working on shoulder ROM. 4. GENERAL HEALTH MAINTENANCE -continue follow up on his CKD with nephrology -he will follow up with his PCP for his general health issues RTC in 7 mon, sooner if needed INTERVAL HISTORY -at [facility], he was advised to increase allopurinol from 300 mg BID to 350 mg qam and 300 mg qpm but he is actually taking allopurinol 400 mg qam and 300 qpm instead. Tolerating this higher dose without issues. -He stopped drinking Nov 2021. He started drinking some since [facility]. -he had 2 flares of joint pain and swelling over the last 6 months. Affected joints hands/wrists/elbows/toes. He was given depomedrol injection and short course of steroids by PCP and symptoms resolved after a couple of days. Last flare was 5-6 weeks ago. He was abstaining from alcohol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 to his father's house.? Says he was drinking heavily at his father's house and had made some comments ofwhich he cannot remember too well.? Says he might of said he will soon his cousin is of whom has passed.? Concerned for his safety his father called EMS and he was taken to [facility] and subsequently brought here.? He says that he did not actually have a plan to hurt himself.? He does admit to an attempted suicide back in 2014 with a gun that he owns.? He says he could not follow through with it.? He said he has made some similar comments in 2016 about endinghis life.? He says he drinks 3-4 nights in a week about 6 beers.? He does admit to drinking more on the weekends, roughly over 12 pack.? He denies feeling worthless, hopeless, anhedonia.? Patient was personally seen by me on the day of the encounter.? I reviewed the history and performed the munoz elements of the assessment.? I formulated the planof care and confirmed this with the medical student as noted below Jagjit stated that he has been depressed and admits to over drinking. He said his asked him to leave. He says he sleeps about 4 to 5 hours a night that he does struggle with racing thoughts at night.? On Seroquel for sleep from his PCP.? Says he is eating okay.? Rates his depression today 12/08 and anxiety 11/08.? Says that most of his depression is because he is here in the hospital and away from his family.? Says he feels like a terrible father and is worried about losing his job.? He is anxious about getting home.? Denies suicidal and homicidal thoughts.? Denies visual and auditory hallucinations.? Says he was diagnosed with anxiety in the past and was placed on Xanax by his PCP. Past psych history: Anxiety, depression Past hospitalizations: None Past suicide attempts: History of prior suicide attempts with a gun in 2014 Family psych history: Depression and anxiety possibly with mom Previous medications: Xanax, Seroquel Course of Treatment The patient was familiar with the mental health therapy services available to him while on the unit and was encouraged to participate. Patient regrets makingsuicidal statements when he is intoxicated. He said that he has been feeling depressed and self-medicating with alcohol. He denied suicidal intent or plan. We discussed medication risks, benefits and indications in details. He was open to trying psychopharmacological treatment. He was started on Lexapro 5 mg p.o. daily to help with depression. He felt thathis symptoms have improved on the current medication regimen. He has been compliant with treatment and reported no side effects. His sleep and appetite were okay. The patient was attending groups and described them as helpful in building coping skills. He denied any access to firearms or lethal weapons. I discussed with him options to help with reducing cravings for alcohol and treatment of alcohol use disorder. He is currently on opiate medication and therefore is not a candidate for naltrexone. I discussed with him in details risks and benefits of acamprosate. He was started on 333 mg p.o. 3 times daily. He was social with peers on the unit and indicated that he learned a lot to improve his mental health. He felt better than before coming to the hospital and hopeful about his future. He rated his depression at 1/10 and anxiety at 1/10, with ten being the worst. He did not exhibit any disorganized behavior nor appeared to be experiencing auditory hallucinations or expressing delusions. He did not show any behavior concerning for sharona. He was much more insightful compared to the time of admission. He understands the importance of outpatient therapy to ensure the stability of symptoms. He denied suicidal or homicidal ideation and verbalized the intent to notify the staff if he has such thoughts. No suicidal or self-injurious behaviors occurred during inpatient treatment. His family ensured that he has no access to guns. Please review case management notes for further information Patient achieved maximum benefit from attending inpatient treatment and was suitable for outpatient follow up. He understands how to utilize resources suchas calling the hotline if he has any SI/HI. He learned how to stay positive and manage his stress in a healthier way. I explained to the patient that discharge from the hospital does not mean that medical care ends here. He needs consistent outpatient psychiatric follow-up, cognitive behavioral therapy, and PCP visits to ensure stability of symptoms. His three wishes include maintain better health, keep a positive outlook in life, and make good money Discharge disposition Home with his . Coordinated by case management Safe discharge Planning: With the cessation of all suicidal ideation, improvements in mood, and with a cessation of any psychotic process, aftercare plans were solidified. The patient was able to formulate a believable safety plan. Discharge plans were discussed with the patient, his family, and the treatment team. All agreed withthe discharge plan. On the day of discharge, he was evaluated and had no complaints. He denied any SI/HI. He felt hopeful, motivated and agreed to follow up with outpatient treatment as arranged by case management. Suicide risk assessment: A thorough review of protective and risk factors was conducted during this admission. Discussed with the patient the following recommendations that would help reduce suicide which include limiting the numberof pills to a 14-day supply with one refill at the time of discharge to avoid potential overdose, involving family members in his care, consistent outpatient follow up preferably within seven days of release, and his desire to live. He reported a good therapeutic alliance, good response to medication management andtherapy, availability of local mental health services and willingness to follow up, lack of suicidal ideation, behvaior, intent or plan, lack of impulsivity, agitation, or psychosis. Pt is future-oriented and understands the importance ofoutpatient follow-up. The presence of positive factors like family and alannah, lack of access to firearms, and desire to continue his treatment is consistent with a safe discharge plan. Given the chronic risk of suicide, we discussed a plan to help him long-term safety. The patient is not suicidal or psychotic now. To help decrease his suicide risk, as best I can, I am referring him for outpatient treatment including but not limited to medication management for long-term follow-up to have somewhere to go and someone to manage him as symptoms and stressors develop. This is the best way to keep him alive. So, we discussed a crisis plan for future suicidality: at the first sign of distress, he will call the hotline;if this is not sufficient, he will 911, then call family members or friends; ultimately, he will come to the ER. MSE: Orientation: Alert and oriented to person, place, and time. Appearance/Behavior: Fair grooming and hygiene, calm, cooperative, engaged in the interview. Good eye contact. Normal psychomotor activity. Speech: regular rate, rhythm, volume, and tone. Non pressured. Knowledge: Appropriate for age and level of education Mood: okay Affect: reactive, mood-congruent Thought process: linear, logical, and goal-oriented Thought content: No SI/HI. No AVH. No delusions. He does not appear to be responding to internal stimuli. Concentration: Grossly intact based on track during the interview Associations: No loosening of associations Memory: Able to recall recent and remote historical information Insight: Fair, able to appreciate current symptoms and need for outpatient treatment Judgment: fair, agreed to follow treatment recommendations. Safety: The patient is not acutely psychotic, suicidal or homicidal and can continue treatment on an outpatient basis. He was made aware of the / emergency services of the crisis center and was advised to call 911 or go to the nearest ER in case of a crisis ( (including having thoughts of harming himself or others). Risks (metabolic, EPS, the effect on heart), benefits, and alternatives for all prescribed medications were discussed with the patient. His consent was obtained. He was advised not to drink alcohol while taking medications. Advised the use of drugs can make patient more impulsive leading to poor decisions. Continue supportive therapy with some CBT techniques. Time spent discussing smoking cessation with patient: more than 10 minutes Condition Condition at Discharge: Fair Status at Discharge Functional status at discharge: independent ambulation Time Spent with Patient Time spent providing/coordinating discharge services (# min): 95 Exam Physical Exam Vital Signs: Temp Pulse Resp BP Pulse Ox O2 Del Method 98.0 F 67 16 133/88 100 Room Air 12/10/21 07:30 12/10/21 07:30 12/10/21 07:30 12/10/21 07:30 12/10/21 07:30 12/10/21 07:30 Discharge Plan Discharge Plan Patient Disposition: Home Activity: No Activity Restriction Diet: Regular Additional Instructions: Regular diet. No activity restrictions. Instructions: Depression, Adult (DC), [facility] [place] Instructions Stand Alone Forms: Work/School Release Form Prescriptions: New escitalopram oxalate 5 mg Tablet 5 mg PO QAM 15 Days Qty: 15 1RF Continued quetiapine 25 mg tablet 25 mg PO HS Label Comments: TAKE 1 TABLET AT BEDTIME ORALLY DAILY 90 DAY(S) clonidine HCl 0.1 mg tablet 0.1 mg PO BID Label Comments: TAKE 1 TABLET BY MOUTH TWICE A DAY carvedilol 6.25 mg tablet 6.25 mg PO BID Label Comments: TAKE 1 TABLET BY MOUTH TWICE A DAY WITH FOOD tizanidine 4 mg tablet 4 mg PO TID PRN (Reason: Pain) Label Comments: TAKE 1 TABLET BY MOUTH 3 TIMES A DAY NEEDED FOR MUSCLE SPASTICITY tramadol 50 mg tablet 100 mg PO QID PRN (Reason: Pain) Label Comments: TAKE 2 TABLETS NEEDED 4 TIMES DAILY FOR 30 DAYS alprazolam 0.5 mg tablet 0.5 mg PO BID Label Comments: TAKE 1 TABLET BY MOUTH TWICE A DAY amlodipine 10 mg tablet 10 mg PO DAILY Label Comments: TAKE 1 TABLET BY MOUTH EVERY DAY FOR 90 DAYS allopurinol 300 mg tablet 300 mg PO BID Label Comments: TAKE 1 TABLET BY MOUTH TWICE A DAY colchicine 0.6 mg tablet 0.6 mg PO Q OTHER DAY Label Comments: TAKE 1 TABLET BY MOUTH EVERY OTHER DAY Rx Instructions: 0.6 mg orally celecoxib 100 mg capsule 100 mg PO BID Label Comments: TAKE 1 CAPSULE BY MOUTH TWICE A DAY WITH FOOD FOR 30 DAYS oxycodone-acetaminophen 5-325 mg tablet 1 tab PO BID PRN (Reason: Pain) Label Comments: TAKE 1 TABLET BY MOUTH TWICE A DAY NEEDED FOR 30 DAYS Follow Up: [facility] [Outside] [facility] [Outside] ( 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 (insert date/time here) Intake: (Insert date/time here) Please bring a copy of your photo ID, insurance card, and proof of household income.? Psychiatry: (Insert date/time here) Group: (Insert date/time here ) ) Documented By: Nicola Leyva MD 2 [id number] Signed By: <Electronically signed by Nicola Leyva MD> 12/10/21 6537 [facility] Work Phone: 1(482) 928-941110-11-2022 Progress note Author Nicola pelayo [facility] December 09, 2021 10:42am Note Date/Time December 09, 2021 8 :48am [facility] [address] [place] [address] Psychiatry Progress Note Signed Patient: Nick Wray MR#: [id number] : 1990 Acct:[id number] Age/Sex: 31 / M Adm Date: 2 Loc: Room: [address] [place] [address] Type : ADM IN Attending Dr: Adam Young MD Copies to: ~ Date of Service: 12/09/2021 Subjective Subjective Narrative: Mr. Wray is a 31 year old male for depression and suicidal ideation. Alfredo is doing better today. He is out of his room and socializing a bit more. Hesaid he went to a group session yesterday which was not too bad for him. He does think that one-on-one sessions will be better for him because he does not like being around other patients with different mental illness from him. He rates his depression 7/10 and anxiety 9/10. Says he is mostly having anxiety because he is thinking about work and being away from his family. Patient was personally seen by me on the day of the encounter. I reviewed the history and performed the munoz elements of the assessment. I formulated the planof care and confirmed this with the Resident as noted below Patient stated that he is feeling better today. He would like a medication to help with alcohol use cravings. Says his came to visit him yesterday and hewas excited about that and it made him more hopeful to get help. He says he is looking forward to getting a therapist or psychiatrist when he leaves and getting help for his alcohol addiction. He is not a candidate for naltrexone serg is currently on tramadol. He is sleeping better throughout the night. With fewer racing thoughts. He is eating okay. Denies suicidal homicidal thoughts. Reports no issues with the Lexapro. He is wanting to go home soon. Mental status exam: Mental Status: mental status grossly normal Mood: ok mood Affect: Constricted affect Speech and Movement: Speech and movements normal and speech clear Attitude: cooperative Thought Process: Normal Thought Content: Denies suicidality, denies hallucinations, no homicidality. Insight:fair Judgment: Fair Impulse control: Fair Exam Physical Exam Vital Signs: Temp Pulse Resp BP Pulse Ox O2 Del Method 97.5 F L 64 18 118/84 96 Room Air 12/09/21 07:30 12/09/21 07:30 12/09/21 07:30 12/09/21 07:30 12/09/21 07:30 12/09/21 07:30 Assessment/Plan Assessment/Plan (1) Major depressive disorder, recurrent, moderate: Code(s): F33.1 - Major depressive disorder, recurrent, moderate Status: Acute Plan Patient reports his depression is improving. Denies suicidal thoughts. Patientfeels like he is doing better today. He is more aware of his issues with drinking and his depression. He is open to getting help. He is looking forwardto one-on-one treatments with the therapist or psychiatrist to getting help for his alcohol addiction. He says outpatient treatment will be more effective for him since being in the hospital during group sessions is not as effective for him. He continues to feel anxious and guilty about being away from his family and being away from work. He is wanting to go home soon Continue Lexapro 5 mg and add acamprosate 333 mg p.o. 3 times daily for Coordinate with to eliminate firearms in household. Patient said all firearms were removed from home. Case management to confirm. Continue to monitor mental status Encourage group participation and medication compliance Risk benefits alternatives explained Documented By: Jasen Nichols DO, RES 12/09/21 0 841 Signed By: <Electronically signed by Nicola Leyva MD> 12/09/21 1042 [facility] Work Phone: 1(826) 724-963910-10-2022 History and physical note Author Nicola pelayo [facility] December 08, 2021 1:32pm Note Date/Time December 08, 2021 1 2:43pm [facility] [address] [place] [address] Psychiatry H&P Signed Patient: Nick Wray MR#: [id number] : 1990 Acct:[id number] Age/Sex: 31 / M Adm Date: 2 Loc: Room: [address] [place] [address] Type: ADM IN Attending Dr: Adam Yuong MD Copies to: MD Adam Law MD Nyokabi Kamau, DO, RES Leydi Aceves MD~ Date of Service: 12/08/2021 HPI History of Present Illness History of present illness: Mr. Wray is a 31 year old male for depression and suicidal ideation. Saysover the weekend he was drinking excessively and got into an argument with his who then kicked him out of the house and sometimes to his father's house. Says he was drinking heavily at his father's house and had made some comments ofwhich he cannot remember too well. Says he might of said he will soon his cousin is of whom has passed. Concerned for his safety his father called EMS and he was [facility] and subsequently brought here. He says that he did not actually have a plan to hurt himself. He does admit to an attempted suicide back in 2014 with a gun that he owns. He says he could not follow through with it. He said he has made some similar comments in 2016 about endinghis life. He says he drinks 3-4 nights in a week about 6 beers. He does admit to drinking more on the weekends, roughly over 12 pack. He denies feeling worthless, hopeless, anhedonia. mojgan was personally seen by me on the day of the encounter.? I reviewed the history and performed the munoz elements of the assessment.? I formulated the planof care and confirmed this with the medical student as noted below Jagjit stated that he has been depressed and admits to over drinking. He said his asked him to leave. He says he sleeps about 4 to 5 hours a night that he does struggle with racing thoughts at night. On Seroquel for sleep from his PCP. Says he is eating okay. Rates his depression today 10/10 and anxiety 9/10. Says that most of his depression is because he is here in the hospital and away from his family. Says he feels like a terrible father and is worried about losing his job. He is anxious about getting home. Denies suicidal and homicidal thoughts. Denies visual and auditory hallucinations. Says he was diagnosed with anxiety in the past and was placed on Xanax by his PCP. 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 Review of symptoms: Constitutional: Denies chills and Denies fever(s) Eyes: Denies change in vision ENT: Denies abnormal hearing Cardiovascular: Denies chest pain Respiratory: Denies chest congestion and Denies cough Gastrointestinal: Denies change in bowel habits Genitourinary: Denies dysuria Musculoskeletal: Denies atrophy and Denies myalgias Integumentary/Breasts: Denies dry skin Neurologic: Denies abnormal gait and Denies abnormal movements Psychiatric: Reports depression and suicidal ideation, also reported intrusive thoughts and paranoia Mental status exam: Mental Status: mental status grossly normal Mood: Sad mood Affect: Constricted affect Speech and Movement: Speech and movements normal and speech clear Attitude: cooperative Thought Process: Normal Thought Content:+ve for suicidality, denies hallucinations, no homicidality. Insight:poor Judgment: poor Impulse control: Poor PMFSH Vaccinated for COVID-19?: No Medical History (Updated 12/08/21 @ 13:31 by Jhony Leyva MD) Depression Gout History of ingrown nail bilater great toes Hypertension PTSD (post-traumatic stress disorder) Rheumatoid aortitis Surgical History (Updated 12/08/21 @ 04:15 by Margaret Land RN) H/O shoulder surgery left side Family History Father Hypertension Ingrown nail Mother Hypertension Ingrown nail Brother Hypertension Ingrown nail Sister Hypertension Depression Ingrown nail Family/Other Gout Ingrown nail Suicide Social History Smoking Status: Current every day smoker Tobacco Type: smokeless tobacco Substance Use Type: Alcohol Meds Medications and Allergies Allergies No Known Allergies Allergy (Verified 09/27/21 18:24) Home Medications allopurinol 300 mg tablet 300 mg PO BID 12/07/21 [History Confirmed 12/07/21] alprazolam 0.5 mg tablet 0.5 mg PO BID 12/07/21 [History Confirmed 12/07/21] amlodipine 10 mg tablet 10 mg PO DAILY 12/07/21 [History Confirmed 12/07/21] carvedilol 6.25 mg tablet 6.25 mg PO BID 12/07/21 [History Confirmed 12/07/21] celecoxib 100 mg capsule 100 mg PO BID 12/07/21 [History Confirmed 12/07/21] clonidine HCl 0.1 mg tablet 0.1 mg PO BID 12/07/21 [History Confirmed 12/07/21] colchicine 0.6 mg tablet 0.6 mg PO Q OTHER DAY 12/07/21 [History Confirmed 12/07/21] oxycodone-acetaminophen 5 mg-325 mg tablet 1 tab PO BID PRN Pain 12/07/21 [History Confirmed 12/07/21] quetiapine 25 mg tablet 25 mg PO HS 12/07/21 [History Confirmed 12/07/21] tizanidine 4 mg tablet 4 mg PO TID PRN Pain 12/07/21 [History Confirmed 12/07/21] tramadol 50 mg tablet 100 mg PO QID PRN Pain 12/07/21 [History Confirmed 12/07/21] Exam Physical Exam Vital Signs: Temp Pulse Resp BP Pulse Ox O2 Del Method 98.1 F 69 18 120/72 98 Room Air 12/08/21 07:30 12/08/21 07:30 12/08/21 07:30 12/08/21 07:30 12/08/21 07:30 12/08/21 07:30 Assessment/Plan (1) Major depressive disorder, recurrent, moderate: Code(s): F33.1 - Major depressive disorder, recurrent, moderate Status: Acute Plan Patient here for depression and suicidal ideation. Patient denies suicidal ideation.? Rates depression 12/08 and anxiety 11/08. Start Lexapro 5 mg Coordinate with to eliminate firearms in household Continue to monitor mental status Encourage group participation and medication compliance Risk benefits alternatives explained Documented By: Jasen Nichols DO, RES 12/08/21 1 228 Signed By: <Electronically signed by Nicola Leyva MD> 12/08/[address] [place] [address] Ctr Work Phone: 1(106) 300-339101-18-2022 Note [id number]:127[facility] 11-29-2020 NoteHNO ID: [id number] Author: RT Kanchan(R) Service: ? Author Type: Technologist Type: Progress Notes Filed: 11/29/2020 10:24 AM Note Text: Radiology Service Progress Note PATIENT NAME: Nick Wray DATE OF SERVICE: November 29, 2020 TIME: 10:24 AM PATIENT IDENTITY VERIFICATION COMPLETED USING TWO (2) IDENTIFIERS: Name and Date of confirmed by patient verbally and Name and Date of confirmed by identification band. FALL SCREENING: Has the patient had 2 falls in the last year or 1 fall with injury or currently using an Ambulatory Assistive Device (Walker, Cane, Wheelchair, Crutches, etc.)? No PATIENT GENDER DATA: Male PATIENT RELEVANT IMPLANT DATA REVIEWED: Not Applicable RADIOLOGY DEPARTMENT: General X-ray: Exam(s) Completed: Upper Extremity X-Ray(s): Shoulder, AP / TRUE AP left PERIPHERAL IV DATA: Not applicable SIGNED BY: RT Kanchan(R) November 29, 2020 10:24 [id number] NoteHNO ID: [id number] Author: Felicitas Perez RDMS Service: Radiology Author Type: Naval Marine Engineer Type: Progress Notes Filed: 08/19/2020 12:51 PM Note Text: Radiology Service Progress Note PATIENT NAME: Nick Wray DATE OF SERVICE: August 19, 2020 TIME: 12:51 PM PATIENT IDENTITY VERIFICATION COMPLETED USING TWO (2) IDENTIFIERS: Name and Date of confirmed by patient verbally. FALL SCREENING: Has the patient had 2 falls in the last year or 1 fall with injury or currently using an Ambulatory Assistive Device (Walker, Cane, Wheelchair, Crutches, etc.)? No PATIENT GENDER DATA: Male PATIENT RELEVANT IMPLANT DATA REVIEWED: Not Applicable RADIOLOGY DEPARTMENT: Ultrasound PERIPHERAL IV DATA: Not applicable SIGNED BY: Felicitas Perez RDMS [facility] August 19, 2020 12:51 [id number] NoteHNO ID: [id number] Author: Britany Mccann (Rt) Service: Radiology Author Type: Surgical Supply Assistant Type: Progress Notes Filed: 04/02/2020 9:49 AM Note Text: Radiology Service Progress Note PATIENT NAME: Nick Wray DATE OF SERVICE: April 02, 2020 TIME: 9:48 AM PATIENT IDENTITY VERIFICATION COMPLETED USING TWO (2) IDENTIFIERS: Name and Date of confirmed by patient verbally. FALL SCREENING: Has the patient had 2 falls in the last year or 1 fall with injury or currently using an Ambulatory Assistive Device (Walker, Cane, Wheelchair, Crutches, etc.)? No PATIENT GENDER DATA: Male PATIENT RELEVANT IMPLANT DATA REVIEWED: Not Applicable RADIOLOGY DEPARTMENT: General X-ray: Exam(s) Completed: Upper Extremity X-Ray(s): Hand, bilateral : PERIPHERAL IV DATA: Not applicable SIGNED BY: RT Ramy April 02, 2020 9:48 [facility] [id number] History of Past illness Narrative* Problem Noted Date Resolved Date Rheumatoid arthritis flare 04/25/201705/10 documented as of this encounter (statuses as of 08/05/2021) [place] [id number] History of Past illness Narrative* Problem Noted Date Resolved Date Rheumatoid arthritis flare 04/25/201705/10 documented as of this encounter (statuses as of 12/22/2021) [place] [address] History of Past illness Narrative* Problem Noted Date Resolved Date Rheumatoid arthritis flare 04/25/201705/10 documented as of this encounter (statuses as of 01/01/2022) [place] [address] History of Past illness Narrative* Problem Noted Date Resolved Date Rheumatoid arthritis flare 04/25/201705/10 documented as of this encounter (statuses as of 04/02/2022) [place] [address] History of Past illness Narrative* Problem Noted Date Resolved Date Rheumatoid arthritis flare 04/25/201705/10 documented as of this encounter (statuses as of 06/30/2022) [place] [address] History of Past illness Narrative* Problem Noted Date Diagnosed Date Resolved Date Rheumatoid arthritis flare 04/25/2017 0 05/10/2017 documented as of this encounter (statuses as of 11/14/2022) [place] [address] History of Past illness Narrative* Problem Noted Date Diagnosed Date Resolved Date Rheumatoid arthritis flare 04/25/2017 0 05/10/2017 documented as of this encounter (statuses as of 11/14/2022) [facility] Diagnosis 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) [facility] noteNo assessment information available[facility] Work Phone: Evaluation note* Diagnosis Onset Date Resolution Status Major depressive disorder, recurrent, moderate acute [facility] Work Phone: Evaluation note* Diagnosis 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) [facility] Diagnosis Idiopathic chronic gout of multiple sites with tophus- Primary Chronic gouty arthropathy with tophus (tophi) Encounter for long-term (current) use of medications Encounter for long-term (current) use of other medications Stage 3 chronic kidney disease, unspecified whether stage 3a or 3b CKD (HCC) [facility] Diagnosis 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) [facility] Diagnosis 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 anation Advance Directive(s) 04/25/2017 12:32 PM Advance Directive Response Recorded Date/ Time Advance Directives No September 27 7:04pm Chief Complaint and Reason for Visit Chief Complaint sent by [facility]/blurry vision/head swell Chief Complaint sent by [facility]/blurry vision/head swell Major Depression Reason for Visit Major depressive dis order, recurrent, moderate Additional Source Comments (unrecognized sect ion and content) No Status Records FoundNo Status Records FoundNo Status Records FoundNo Status Records FoundNo Status Records FoundNo Status Records FoundNo Status Records FoundNo Status Records Found INFORMATION SOURCE (unrecogn ized section and content) DATE CREATED AUTHOR 07/23/2018 Katie cruz DATE CREATED AUTHOR AUTHOR'S ORGANIZ ATION 11/30/2020 [facility] DATE CREATED AUTHOR AUTHOR'S ORGANIZ ATION 07/09/2021 [facility] DATE CREATED AUTHOR AUTHOR'S ORGANIZ ATION 11/11/2021 [facility] DATE CREATED AUTHOR AUTHOR'S ORGANIZ ATION 08/07/2022 [facility] DATE CREATED AUTHOR AUTHOR'S ORGANIZ ATION 11/15/2022 [facility] DATE CREATED AUTHOR AUTHOR'S ORGANIZ ATION 01/14/2023 [facility] EPIC DATE CREATED AUTHOR AUTHOR'S ORGANIZ ATION 01/28/2023 [facility] Source Comments (unrecognize d section and content) In the event this informatio n is protected by the Federal Confidentiality of Alcohol and Drug Abuse Patient Records regulations: The Federal rules restrict any use of the information to criminally investigate or prosecute any alcohol or drug abuse patient.[facility] the event this information is protected by the Federal Confidentiality of Alcohol and Drug Abuse Patient Records regulations: The Federal rules restrict any use of the information to criminally investigate or prosecute any alcohol or drug abuse patient.[facility] the event this information is protected by the Federal Confidentiality of Alcohol and Drug Abuse Patient Records regulations: The Federal rules restrict any use of the information to criminally investigate or prosecute any alcohol or drug abuse patient.[facility] the event this information is protected by the Federal Confidentiality of Alcohol and Drug Abuse Patient Records regulations: The Federal rules restrict any use of the information to criminally investigate or prosecute any alcohol or drug abuse patient.[facility] the event this information is protected by the Federal Confidentiality of Alcohol and Drug Abuse Patient Records regulations: The Federal rules restrict any use of the information to criminally investigate or prosecute any alcohol or drug abuse patient.[facility] the event this information is protected by the Federal Confidentiality of Alcohol and Drug Abuse Patient Records regulations: The Federal rules restrict any use of the information to criminally investigate or prosecute any alcohol or drug abuse patient.[facility] the event this information is protected by the Federal Confidentiality of Alcohol and Drug Abuse Patient Records regulations: The Federal rules restrict any use of the information to criminally investigate or prosecute any alcohol or drug abuse patient.[facility] Care Teams (unrecognized sec tion and content) Lisw Relationship Specialty Start Date End Date Leydi Acevescris PCP - General Family Practice 01/07/15 Team Status: Inactive Member Role Status Dates Leydi Aceves MD Primary Care Provider Active Juvenal Smith MD Emergency Provider Active Team Status: Active Member Role Status Dates Leydi Aceves MD Primary Care Provider Active Team Status: Inactive Member Role Status Dates Leydi Aceves MD Primary Care Provider Active Adam Young MD Admit Provider, Attending Provider Active Lisw Relationship Specialty Start Date End Date Leydi Acevescris PCP - General Family Medicine 01/07/15 Lisw Relationship Specialty Start Date End Date Be Aceveschago Temple PCP - General Family Medicine 01/07/15 Lisw Relationship Specialty Start Date End Date Leydi Aceves [place] PCP - General Family Medicine 01/07/15 Lisw Relationship Specialty Start Date End Date Be Aceveschago Temple PCP - General Family Medicine 01/07/15 Lisw Relationship Specialty Start Date End Date Leydi Aceves MD PCP - General Family Medicine 01/07/15 Lisw Relationship Specialty Start Date End Date Leydi Aceves MD PCP - General Family Medicine 01/07/15 Goals (unrecognized section and content) Goals may be documented in a n alternate section Reason for Visit (unrecogniz ed section and content) Reason Comments Refill Request Reason Comments Follow Up Reason Comments Patient Request FOR RECORDS PERTAINING TO PATIENTS WHO ARE OR HAVE BEEN ENROLLED IN A CHEMICAL DEPENDENCY/SUBSTANCEABUSE PROGRAM, SOME INFORMATION MAY BE OMITTED. This clinical summary was aggregated from multiple sources. Caution should be exercised in using it in the provision of clinical care. This summary normalizes information from multiple sources, and as a consequence, information in this document may materially change the coding, format and clinical context of patient data. In addition, data may be omitted in some cases. CLINICAL DECISIONS SHOULD BE BASED ON THE PRIMARY CLINICAL RECORDS. [facility], [facility]. provides no warranty or guarantee of the accuracy or completeness of information in this document.
[2023-02-20 12:59] VITALS: BP 137/80; PULSE 99; RESP 14; TEMP 36.8; O2SAT 99; BMI 27.6
--- NOTE | 2023-02-20 13:05 | ED.MEDCLEAR1 ---
HPI - Medical Clearance General Chief complaint: Medical Clearance Stated complaint: lower extremity pain Time Seen by Provider: 02/20/23 12:43 Source: patient Mode of arrival: walk-in Limitations: no limitations History of Present Illness HPI Narrative: 32-year-old male presents for a work note. He recently had knee surgery for septic bursitis and he saw his surgeon yesterday who gave him a note to be off work for two weeks. The patient wants a note saying he can go back to work with light duty, seated work which she is able to do in his job. He's had no new injury. No fever or drainage. Related Information Home Medications Medication Instructions Recorded Confirmed allopurinol 300 mg tablet 600 mg PO DAILY 08/31/22 02/14/23 alprazolam 0.5 mg tablet 0.5 mg PO TID PRN anxiety 08/31/22 02/15/23 amlodipine 10 mg tablet 10 mg PO QDAY 08/31/22 02/15/23 carvedilol 6.25 mg tablet 6.25 mg PO DAILY 08/31/22 02/14/23 celecoxib 100 mg capsule 100 mg PO DAILY PRN RA flare 08/31/22 02/15/23 clonidine HCl 0.1 mg tablet 0.1 mg PO BID 08/31/22 02/14/23 colchicine 0.6 mg tablet 0.6 mg PO .every other 08/31/22 02/14/23 quetiapine 50 mg tablet See Rx Instructions PO .hs 08/31/22 02/14/23 tramadol 50 mg tablet 50 mg PO Q6H PRN pain 08/31/22 02/14/23 gabapentin 300 mg capsule 300 mg PO TID 02/15/23 02/15/23 (Neurontin) Previous Rx's Medication Instructions Recorded doxycycline hyclate 100 mg tablet 100 mg PO BID 10 days #20 tabs 02/16/23 oxycodone-acetaminophen 5 mg-325 1 tab PO Q6H PRN pain (scale score 02/16/23 mg tablet (Percocet) 4-6) #10 tabs oxycodone-acetaminophen 5 mg-325 2 tab PO Q6H PRN pain (scale score 02/16/23 mg tablet (Percocet) 7-10) #10 tabs Allergies Allergy/AdvReac Type Severity Reaction Status Date / Time No Known Drug Allergies Allergy Verified 02/20/23 12:59 Review of Systems ROS Narrative A ten point review of systems is negative except as noted above. PFSH PFSH Medical History Acute viral syndrome ?B34.9 - Viral infection, unspecified (ICD-10) Diarrhea ?R19.7 - Diarrhea, unspecified (ICD-10) Gouty arthritis ?M10.9 - Gout, unspecified (ICD-10) Rheumatoid arthritis flare ?M06.9 - Rheumatoid arthritis, unspecified (ICD-10) Polyarthralgia ?M25.50 - Pain in unspecified joint (ICD-10) Rheumatoid arthritis flare ?M06.9 - Rheumatoid arthritis, unspecified (ICD-10) Weakness ?R53.1 - Weakness (ICD-10) Mild shortness of breath ?R06.02 - Shortness of breath (ICD-10) Headache ?R51.9 - Headache, unspecified (ICD-10) Polyarthralgia ?M25.50 - Pain in unspecified joint (ICD-10) Flare of rheumatoid arthritis ?M06.9 - Rheumatoid arthritis, unspecified (ICD-10) Arthralgia ?M25.50 - Pain in unspecified joint (ICD-10) Drug-seeking behavior ?Z76.5 - Malingerer [conscious simulation] (ICD-10) Surgical History (Updated 02/14/23 @ 20:23 by Swathi Barkley RN) H/O shoulder surgery ?Z98.890 - Other specified postprocedural states (ICD-10) Social History Smoking status: Never smoker Highest level of school completed/degree received: Associate degree: occupational, technical, vocational program Exam Narrative Exam Narrative: Nurses note and vital signs reviewed and patient is not hypoxic. General: The patient appears well and in no apparent distress. Patient is resting comfortably on cart. Skin: Warm, dry, no pallor noted. There is no rash noted. Head: Normocephalic, atraumatic Eye: Normal conjunctiva, no drainage Ears, Nose, Mouth, and Throat: oral mucosa is moist. Nares patent. Cardiovascular: Regular Rate and Rhythm, lungs are clear to auscultation, no wheezing, rales or rhonchi Back: non-tender GI: nontender Musculoskeletal: the right knee is examined. No erythema or dehiscence. The wound appears to be healing well. Neurological: A&O, normal speech Psychiatric: Cooperative Constitutional Vital Signs, click to edit/add: Last Vital Signs Temp 98.2 F 02/20/23 12:59 Pulse 99 H 02/20/23 12:59 Resp 14 02/20/23 12:59 BP 137/80 02/20/23 12:59 Pulse Ox 99 02/20/23 12:59 O2 Del Method Room Air 02/20/23 12:59 Course Vital Signs Vital signs: Vital Signs Temperature 98.2 F 02/20/23 12:59 Pulse Rate 99 H 02/20/23 12:59 Respiratory Rate 14 02/20/23 12:59 Blood Pressure 137/80 02/20/23 12:59 Pulse Oximetry 99 02/20/23 12:59 Oxygen Delivery Method Room Air 02/20/23 12:59 Temperature 98.2 F 02/20/23 12:59 Pulse Rate 99 H 02/20/23 12:59 Respiratory Rate 14 02/20/23 12:59 Blood Pressure 137/80 02/20/23 12:59 Pulse Oximetry 99 02/20/23 12:59 Oxygen Delivery Method Room Air 02/20/23 12:59 MDM - Medical Clearance MDM Narrative Medical decision making narrative: I discussed the case with Dr. Coffman and with his consent I have given the patient or note allowing him to go back to work with seated duty. Discharge Plan Discharge Chief Complaint: Medical Clearance Clinical Impression: Visit for wound check Patient Disposition: Home, Self-Care Time of Disposition Decision: 13:05 Condition: Good Mode of Transportation: Private Vehicle Prescriptions / Home Meds: No Action gabapentin [Neurontin] 300 mg capsule 300 mg PO TID oxycodone-acetaminophen [Percocet] 5-325 mg tablet 2 tab PO Q6H PRN (Reason: pain (scale score 7-10)) Qty: 10 0RF doxycycline hyclate 100 mg tablet 100 mg PO BID 10 Days Qty: 20 0RF oxycodone-acetaminophen [Percocet] 5-325 mg tablet 1 tab PO Q6H PRN (Reason: pain (scale score 4-6)) Qty: 10 0RF Rx Instructions: DX: M10.9; to be taken with regular (daily) Percocet for breakthrough pain for a maximum of 4 Percocet tabs (q6h PRN pain daily) tramadol 50 mg tablet 50 mg PO Q6H PRN (Reason: pain) quetiapine 50 mg tablet See Rx Instructions PO .hs Patient Comments: per pt. 50mg with 25mg Rx Instructions: 75 orally HS; colchicine 0.6 mg tablet 0.6 mg PO .every other clonidine HCl 0.1 mg tablet 0.1 mg PO BID celecoxib 100 mg capsule 100 mg PO DAILY PRN (Reason: RA flare) carvedilol 6.25 mg tablet 6.25 mg PO DAILY amlodipine 10 mg tablet 10 mg PO QDAY alprazolam 0.5 mg tablet 0.5 mg PO TID PRN (Reason: anxiety) allopurinol 300 mg tablet 600 mg PO DAILY Instructions: Wound Healing and Your Diet (ED) Stand Alone Forms: Portal Instructions Referrals: LEYDI ACEVES [Primary Care Provider] - 1 week
== END 2023-02-20 13:15 | disposition home or self-care (01) ==
PROVIDERS: Emergency Provider Emergency Medicine; PCP Family Medicine
DX: Z09 Encounter for follow-up examination after completed treatment for conditions other than malignant neoplasm (principal)
CPT/HCPCS: 99281

== ENCOUNTER 2023-02-21 23:13 | Emergency (ER) | payer OTHER, SELFPAY | END 2023-02-21 23:53 | disposition left against medical advice (07) | PROVIDERS: Emergency Provider Internal Medicine; PCP Family Medicine | DX: Z53.21 Procedure and treatment not carried out due to patient leaving prior to being seen by health care provider (principal) ==

== ENCOUNTER 2023-03-06 12:45 | Emergency (ER) | payer OTHER, SELFPAY ==
[2023-03-06 12:50] VITALS: BP 147/91; PULSE 110; RESP 18; TEMP 36.8; O2SAT 99; BMI 27.5
--- OUTSIDE RECORDS SUMMARY | 2023-03-06 12:52 | XMS_ITS | CCD ---
Author Name Unknown Address [address] [facility] [address] [place] [address] Organization [facility] Care Team Providers Care Hybrid Technologist Name Role Phone LEYDI ACEVES Primary Care Unavailable Leydi Aceves Primary Care Provider MD Leydi Aceves Primary Care Provider MD Juvenal Smith Emergency Provider MD Isaac Youngmi Admit Provider [phone] MD Hector Adam Attending Provider Leydi Aceves Primary Care Provider Leydi Aceves Primary Care Provider KETAN, DR HOLLEY Primary Care Unavailable ZHAO DAWSON Admitting Unavailable LIBERTAD ., ZHAO Consulting Unavailable ZHAO DAWSON Attending Unavailable LIBERTAD Lay, ZHAO Admitting Unavailable JON DAWSONID Attending Unavailable MR DOUGLAS CISNEROS Consulting Unavailable DR LEYDI ACEVES Primary Care Unavailable JOSUE .MATIAS Attending Unavailable ISIS DUFF Consulting UnavailMATIAS Ken Admitting Unavailable DR LEYDI ACEVES Primary Care Unavailable LIBERTAD Lay, ZHAO Admitting Unavailable ZHAO DAWSON Attending Unavailable MICHEAL ACOSTA Consulting Unavailable DR LEYDI ACEVES Primary Care Unavailable LIBERTAD Lay, HZAO Admitting Unavailable RUFINA MARIN Consulting Unavailable LIBERATD Lay, ZHAO Attending Unavailable KETAN, DR HOLLEY Primary Care Unavailable LIBERTAD Lay, ZHAO Consulting Unavailable NEL KING Consulting Unavailable DR LEYDI ACEVES Primary Care Unavailable RD, DR TORRES Guillory Consulting Unavailable DR TORRES SMITH Attending Unavailable DR TORRES SMITH Admitting Unavailable ZHAO DAWSON Consulting Unavailable ISIS DUFF Consulting UnavailBhupinder Lay, MIKE Attending Unavailable BRYSON ., MIKE Admitting Unavailable KETAN, DR HOLLEY Primary Care Unavailable KETAN, DR HOLLEY Primary Care Unavailable HAY ., DR DUGGAN Consulting Unavailable HAY ., DR DUGGAN Attending Unavailable HAY ., DR DUGGAN Admitting Unavailable KETAN, DR HOLLEY Primary Care Unavailable REINECK, DR JOHNSON Curtis Consulting Unavailabl e REINECK, DR JOHNSON Curtis Attending Unavailabl e REINECK, DR JOHNSON Curtis Admitting Unavailabl e KETAN, DR HOLLEY Primary [facility] Unavailable HAY ., DR DUGGAN Consulting Unavailable HAY ., DR DUGGAN Attending Unavailable HAY ., DR DUGGAN Admitting Unavailable [place] , [facility] Primary [facility] Provider [phone] MIRI REES Attending Unavailable KAYCE HEATH Referring Unavailable [facility] Unavailable Ladi Huber Attending Unavailable Nicola Leyva Attending Unavailab Nicola Will Admitting Unavailab le Ketan, [facility] Unavailable DELMY BOYLE Referring Unavailable KETAN, [facility] Unavailable DELMY BOYLE Attending Unavailable DELMY BOYLE Referring Unavailable KETAN, [facility] Referring Unavailable Medications Current Medications Medication Drug Class(es) [...] (1 source) Patient encounter status; Translations: [Other shelter (current) drug therapy] Episodic Other aftercare (2 sources) 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; Translations: [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 CURRENT DRUG THERAPY] Onset: 06-30-2022 Episodic Other connective tissue disease (4 sources) [...] Weakness; Translations: [WEAKNESS] Onset: 01-31-2022 Episodic Other connective tissue disease (1 source) [...] Test Name Value Interpretation Reference Range Facility ALT SerPl-cCncon 03-04-2023 ALT [Catalytic activity/Vol] 26 U/L Normal 10-54 [facility] Comment on above: Order Comment: Speci men Type: BLOOD SPECIMEN Ordering Facility: [facility] Address: [address] [place] [address] Performed By: #### 1 742-6, 1919-09, 1750-08, CRET1 #### [facility] CLIA [id number] [address] [place] [address] 90024 AST SerPl-cCncon 03-04-2023 AST [Catalytic activity/Vol] 20 U/L Normal 14-40 [facility] Comment on above: Order Comment: Speci men Type: BLOOD SPECIMEN Ordering Facility: [facility] Address: [address] [place] [address] Performed By: #### 1 742-6, 1919-09, 1750-08, CRET1 #### [facility] CLIA [id number] [address] [place] [address] 10530 Albumin SerPl-mCncon 024 Albumin [Mass/Vol] 4.4 g/dL Normal 3.9-4.9 [facility] Comment on above: Order Comment: Speci men Type: BLOOD SPECIMEN Ordering Facility: [facility] Address: [address] [place], [place] [address] Performed By: #### 1 742-6, 1919-09, 1750-08, CRET1 #### [facility] CLIA [id number] [address] [place] [address] 13693 CBC W Auto Differential pane l (Bld)on 03-04-2023 Basophils (Bld) [#/Vol] 10*3/uL Normal <0.11 [facility] Comment on above: Order Comment: Speci men Type: BLOOD SPECIMEN Ordering Facility: [facility] Address: [address] [place] [address] Performed By: #### 5 7021-8 #### [facility] CLIA [id number] [address] [place] [address] 34866 Basophils/100 WBC (Bld) 0.2 % Normal [facility] Comment on above: Order Comment: Speci men Type: BLOOD SPECIMEN Ordering Facility: [facility] Address: [address] [place] [address] Performed By: #### 5 7021-8 #### [facility] CLIA [id number] [address] [place] [address] 47685 Differential cell count method Nom (Bld) Auto Normal [facility] Comment on above: Order Comment: Speci men Type: BLOOD SPECIMEN Ordering Facility: [facility] Address: [address] [place] [address] Performed By: #### 5 7021-8 #### [facility] CLIA [id number] [address] [place] [address] 71771 Eosinophils (Bld) [#/Vol] 0.08 10*3/uL Normal <0.46 [facility] Comment on above: Order Comment: Speci men Type: BLOOD SPECIMEN Ordering Facility: [facility] Address: [address] [place] [address] Performed By: #### 5 7021-8 #### [facility] CLIA [id number] [address] [place] [address] 17025 Eosinophils/100 WBC (Bld) 0.9 % Normal [facility] Comment on above: Order Comment: Speci men Type: BLOOD SPECIMEN Ordering Facility: [facility] Address: [address] [place] [address] Performed By: #### 5 7021-8 #### [facility] CLIA [id number] [address] [place] [address] 53159 Erythrocyte distribution width (RBC) [Ratio] 14.3 % Normal 11.5-15.0 [facility] Comment on above: Order Comment: Speci men Type: BLOOD SPECIMEN Ordering Facility: [facility] Address: [address] [place] [address] Performed By: #### 5 7021-8 #### [facility] CLIA [id number] [address] [place] [address] 91343 Hematocrit (Bld) [Volume fraction] 44.0 % Normal 39.0-51.0 [facility] Comment on above: Order Comment: Speci men Type: BLOOD SPECIMEN Ordering Facility: [facility] Address: [address] [place] [address] Performed By: #### 5 7021-8 #### [facility] CLIA [id number] [address] [place] [address] 90286 Hemoglobin (Bld) [Mass/Vol] 14.4 g/dL Normal 13.0-17.0 [facility] Comment on above: Order Comment: Speci men Type: BLOOD SPECIMEN Ordering Facility: [facility] Address: [address] [place] [address] Performed By: #### 5 7021-8 #### [facility] CLIA [id number] [address] [place] [address] 29341 Immature granulocytes (Bld) [#/Vol] 0.03 10*3/uL Normal <0.10 [facility] Comment on above: Order Comment: Speci men Type: BLOOD SPECIMEN Ordering Facility: [facility] Address: [address] [place] [address] Performed By: #### 5 7021-8 #### [facility] CLIA [id number] [address] [place] [address] 95891 Immature granulocytes/100 WBC (Bld) 0.3 % Normal [facility] Comment on above: Order Comment: Speci men Type: BLOOD SPECIMEN Ordering Facility: [facility] Address: [address] [place] [address] Performed By: #### 5 7021-8 #### [facility] CLIA [id number] [address] [place] [address] 40688 Lymphocytes (Bld) [#/Vol] 2.45 10*3/uL Normal 1.00-4.00 [facility] Comment on above: Order Comment: Speci men Type: BLOOD SPECIMEN Ordering Facility: [facility] Address: [address] [place] [address] Performed By: #### 5 7021-8 #### [facility] CLIA [id number] [address] [place] [address] 59022 Lymphocytes/100 WBC (Bld) 28.1 % Normal [facility] Comment on above: Order Comment: Speci men Type: BLOOD SPECIMEN Ordering Facility: [facility] Address: [address] [place] [address] Performed By: #### 5 7021-8 #### [facility] CLIA [id number] [address] [place] [address] 38720 MCH (RBC) [Entitic mass] 28.9 pg Normal 26.0-34.0 [facility] Comment on above: Order Comment: Speci men Type: BLOOD SPECIMEN Ordering Facility: [facility] Address: [address] [place] [address] Performed By: #### 5 7021-8 #### [facility] CLIA [id number] [address] [place] [address] 28185 MCHC (RBC) [Mass/Vol] 32.7 g/dL Normal 30.5-36.0 [facility] Comment on above: Order Comment: Speci men Type: BLOOD SPECIMEN Ordering Facility: [facility] Address: [address] [place] [address] Performed By: #### 5 7021-8 #### [facility] CLIA [id number] [address] [place] [address] 17726 MCV (RBC) [Entitic vol] 88.2 fL Normal 80.0-100.0 [facility] Comment on above: Order Comment: Speci men Type: BLOOD SPECIMEN Ordering Facility: [facility] Address: [address] [place] [address] Performed By: #### 5 7021-8 #### [facility] CLIA [id number] [address] [place] [address] Monocytes (Bld) [#/Vol] 0.97 10*3/uL High <0.87 [facility] Comment on above: Order Comment: Speci men Type: BLOOD SPECIMEN Ordering Facility: [facility] Address: [address] [place] [address] Performed By: #### 5 7021-8 #### [facility] CLIA [id number] [address] [place] [address] 28020 Monocytes/100 WBC (Bld) 11.1 % Normal [facility] Comment on above: Order Comment: Speci men Type: BLOOD SPECIMEN Ordering Facility: [facility] Address: [address] [place] [address] Performed By: #### 5 7021-8 #### [facility] CLIA [id number] [address] [place] [address] 21934 Neutrophils (Bld) [#/Vol] 5.17 10*3/uL Normal 1.45-7.50 [facility] Comment on above: Order Comment: Speci men Type: BLOOD SPECIMEN Ordering Facility: [facility] Address: [address] [place] [address] Performed By: #### 5 7021-8 #### [facility] CLIA [id number] [address] [place] [address] 43246 Neutrophils/100 WBC (Bld) 59.4 % Normal [facility] Comment on above: Order Comment: Speci men Type: BLOOD SPECIMEN Ordering Facility: [facility] Address: [address] [place] [address] Performed By: #### 5 7021-8 #### [facility] CLIA [id number] [address] [place] [address] 44451 Nucleated RBC (Bld) [#/Vol] 10*3/uL Normal <0.01 [facility] Comment on above: Order Comment: Speci men Type: BLOOD SPECIMEN Ordering Facility: [facility] Address: [address] [place] [address] Performed By: #### 5 7021-8 #### [facility] CLIA [id number] [address] [place] [address] Nucleated RBC/100 WBC (Bld) [Ratio] 0.0 /100 WBC Normal [facility] Comment on above: Order Comment: Speci men Type: BLOOD SPECIMEN Ordering Facility: [facility] Address: [address] [place] [address] Performed By: #### 5 7021-8 #### [facility] CLIA [id number] [address] [place] [address] 93785 Platelet mean volume (Bld) [Entitic vol] 9.7 fL Normal 9.0-12.7 [facility] Comment on above: Order Comment: Speci men Type: BLOOD SPECIMEN Ordering Facility: [facility] Address: [address] [place] [address] Performed By: #### 5 7021-8 #### [facility] CLIA [id number] [address] [place] [address] 18680 Platelets (Bld) [#/Vol] 442 10*3/uL High 150-400 [facility] Comment on above: Order Comment: Speci men Type: BLOOD SPECIMEN Ordering Facility: [facility] Address: [address] [place] [address] Performed By: #### 5 7021-8 #### [facility] CLIA [id number] [address] [place] [address] 26886 RBC (Bld) [#/Vol] 4.99 10*6/uL Normal 4.20-6.00 [facility] Comment on above: Order Comment: Speci men Type: BLOOD SPECIMEN Ordering Facility: [facility] Address: [address] [place] [address] Performed By: #### 5 7021-8 #### [facility] CLIA [id number] [address] [place] [address] 89948 WBC (Bld) [#/Vol] 8.72 10*3/uL Normal 3.70-11.00 [facility] Comment on above: Order Comment: Speci men Type: BLOOD SPECIMEN Ordering Facility: [facility] Address: [address] [place] [address] Performed By: #### 5 7021-8 #### [facility] CLIA [id number] [address] [place] [address] 29075 CREATININE BLDon 03-04-2023 Creatinine [Mass/Vol] 1.21 mg/dL Normal 0.73-1.22 [facility] Comment on above: Order Comment: Speci men Type: BLOOD SPECIMEN Ordering Facility: [facility] Address: [address] [place] [address] Performed By: #### 1 742-6, 1919-09, 1750-08, CRET1 #### [facility] CLIA [id number] [address] [place] [address] 23626 Creatinine and Glomerular filtration rate.predicted panel (S/P/Bld) 81 mL/min/1.73m??? Normal >=60 [facility] Comment on above: Order Comment: Speci men Type: BLOOD SPECIMEN Ordering Facility: [facility] Address: [address] [place] [address] Result Comment: Jyoti mated Glomerular Filtration Rate [...] accurately reflect actual GFR. Performed By: #### 1 742-6, 1919-09, 1750-08, CRET1 #### [facility] CLIA [id number] [address] [place] [address] 25430 CRP SerPl-mCncon 03-04-2023 CRP [Mass/Vol] 4.2 mg/dL High <0.9 [facility] Comment on above: Order Comment: Speci men Type: BLOOD SPECIMEN Ordering Facility: [facility] Address: [address] [place] [id number] Performed By: #### 1 988-5 #### [facility] CLIA [id number] [address] [facility] [place] [id number] [id number] [place] ESR Westergren method (Bld) [Velocity]on 03-04-2023 ESR (Bld) [Velocity] 29 mm/h High 0-15 [facility] Comment on above: Order Comment: Speci men Type: BLOOD SPECIMEN Ordering Facility: [facility] Address: [address] [place] [address] Performed By: #### 3 084-1 #### [facility] CLIA [id number] [address] [place] [address] 31138 Urate SerPl-mCncon 4 Urate [Mass/Vol] 14.6 mg/dL High 4.0-8.1 [facility] Comment on above: Order Comment: Speci men Type: BLOOD SPECIMEN Ordering Facility: [facility] Address: [address] [place] [address] Performed By: #### 3 084-1 #### [facility] CLIA [id number] [address] [place] [address] 07718 Consent for Treatmenton 01-30 Consent for Treatment [id number] Normal [facility] Discharge Instructionson Discharge Instructions [id number] Normal [facility] ED Clinical Summaryon 2022 ED Clinical Summary (Inserted Image. Jodi ble to display) [address] [address] ED Clinical Summary Person Information Name: NICK WRAY [facility] Age: 32 Years : 1990 Sex: Male Language: Niuean PCP: LEYDI ACEVES MD Marital Status: MRN: Visit Id: Visit Reason: Post surgical problem; Knee pain-swelling; RIGHT KNEE SWELLED, HAD SURGERY WEDNESDAY Speciality: Acuity: 3 Enc Type: Emergency Med Service: Emergency Arrival: 02/24/2023 12:18:34 Discharge: 02/24/2023 15:30:48 LOS: 000 03:12 Checkin: 02/24/2023 12:18:34 Checkout: 02/24/2023 15:30:48 Dispo Type: Home (Routine DC) EVENTS: Event Name Event Status Request Date/Time Start Date/Time Complete Date/Time Arrive Complete 02/24/2023 12:18:34 02/24/2023 12:18:34 02/24/2023 12:18:34 Document Home Meds Request 02/24/2023 12:18:34 Triage Complete 02/24/2023 12:18:34 02/24/2023 12:43:04 02/24/2023 12:43:04 Registration Complete 02/24/2023 12:24:40 02/24/2023 12:24:40 02/24/2023 12:24:40 Reg Complete Request 02/24/2023 12:24:40 Reg Bed Request Complete 02/24/2023 12:24:40 02/24/2023 12:24:40 02/24/2023 12:24:40 Bed Assign Complete 02/24/2023 14:07:34 02/24/2023 14:07:34 02/24/2023 14:07:34 Dr Exam Complete 02/24/2023 14:07:34 02/24/2023 14:07:42 02/24/2023 14:07:42 RN Exam Complete 02/24/2023 14:07:34 02/24/2023 14:56:35 02/24/2023 14:56:35 Registration Request 02/24/2023 14:07:42 Meds Admin Complete 02/24/2023 14:19:21 02/24/2023 14:53:11 Discharge Complete 02/24/2023 14:20:47 02/24/2023 15:31:03 02/24/2023 15:31:03 Transfer Complete 02/24/2023 15:31:03 02/24/2023 15:31:03 02/24/2023 15:31:03 ADDRESS: [address] [facility] [id number] PHYS DOC NOTES: MEDICAL INFORMATION: Prescriptions Given: New Medications [id number], [address], [place] [id number], [phone] predniSONE (predniSONE 10 mg Tab) 1 Dose Separtor By Mouth As Directed. Take 5 tabs by mouth daily x5 days, 4 daily x5 days, 3 daily x5 days, 2 daily x5 days, then 1 tab daily x5 days.. Refills: 0. Medications to Continue with No Changes Other Medications acetaminophen-oxycodone (Percocet 325 mg-5 mg Tab) 1-2 tab(s) Oral q4hr; as needed as needed for pain. Refills: 0. allopurinol (allopurinol 100 mg Tab) 1.5 Tablets [...] 1 Tablets By Mouth every other day. diazepam (Valium 2 mg Tab) 1-2 tab(s) Oral q8hr; as needed Spasm. Refills: 0. docusate (Colace 100 mg Cap) 1 Capsules By Mouth 2 times a day as needed for constipation. Refills: 0. ibuprofen (ibuprofen 600 mg Tab) 1 Tablets By Mouth every 8 hours as needed as needed for pain. with food or milk. Refills: 0. quetiapine (quetiapine 25 mg Tab) 1 Tablets By Mouth every day. tramadol (tramadol 50 mg oral tablet) 1 Tablets By Mouth every 4 hours as needed for pain. PATIENT EDUCATION INFORMATION: Instructions: Knee Effusion, Mvpk-zg-[id number] Follow up: With: Address: When: LEYDI ACEVES [address] [place], [place] [id number] Business (1) In 3 days 02/27/2023 Comments: Take the steroids once daily as prescribed to completed the course. Please follow-up with your primary care doctor in the next 2 to 3 days for further evaluation management. Please return to ED for any worsening symptoms. Follow-up with your orthopedic doctor for further evaluation management. DIAGNOSIS: Swelling of joint, knee, right Normal [facility] ED Note-Physicianon 02-25-20 ED Note-Physician Basic Information Time Seen: Ladi Huber DO 02/24/2023 14:07 Chief Complaint Pt had knee surgery for scope to clean out gout in [place] by a doctor out of [place]. Pt. states has had fluiding building up in R knee since Wednesday. Called ortho doc who did surgery and told to go to ER to get fluid drained. Attempted to go to [place] History of Present Illness Patient is a 30-year-old male with past medical history of rheumatoid arthritis, gout presenting to the ED for evaluation of swelling to the right knee. Patient states he had a scope for gout in [place] on Wednesday, since then has been having increasing swelling. Patient is noted some mild warmth, denies fevers, chills, nausea or vomiting. Patient states he has an appointment with the surgeon for follow-up on March 08. Review of Systems A 10 point review of systems is negative except as noted above. Medical and Surgical History: Reviewed and noted Social history: Lives at home Tobacco: Denies Physical Exam Vitals & Measurements T: 37.2 ?C(Oral) HR: 118(Peripheral) RR: 16 BP: 162/102 SpO2: 97% HT: 187 cm WT: 100 kg BMI: 28.6 General: Well developed, non toxic appearing, no acute distress HEENT: Head atraumatic, Mucosa moist, hearing grossly normal Neck: No JVD, tracheal deviation Cardiac: Regular rate, rhythm, no murmurs, or gallops, 2+ radial pulses Respiratory: Lungs clear to auscultation B/L, normal respiratory effort Extremities: Operative incision clean dry intact to the right knee there is mild edema noted to the right knee no significant pain with movement Neurologic: Alert and oriented, speech clear Skin: No rashes or lesions Psych: Appropriate mood and behavior Medical Decision Making MEDICAL DECISION MAKING Number and Complexity of Problems Differential Diagnosis: [] [facility] Data External documents reviewed: [] My EKG interpretation: [] My CT interpretation: [] My X-ray interpretation: [] My Ultrasound interpretation: [] Decision rules/scores evaluated: [] Discussed with: [] Treatment and Disposition ED Course: Patient is a 32-year-old male presenting to the ED for evaluation of right knee pain, swelling. Patient nontoxic-appearing on arrival, no acute distress. Does have mild swelling to the right knee however no signs of infection. Does not have exquisite pain with motion. Discussed follow-up with the patient's orthopedic surgeon will start him on prednisone for possible gout flare. He is discharged home to follow-up with his primary care doctor and orthopedic surgeon for further evaluation management. Shared decision making: [] Code status: [] Assessment/Plan Swelling of joint, knee, right (M25.461: Effusion, right knee) Orders: morphine, 4 mg = 1 mL, Injection, IntraMuscular, Once, Stop date 02/24/23 14:19:00 EST, STAT, Start date 02/24/23 14:19:00 EST, 02/24/23 14:19:00 EST predniSONE, 0 = 1 -, Oral, As Directed, Take 5 tabs by mouth daily x5 days, 4 daily x5 days, 3 daily x5 days, 2 daily x5 days, then 1 tab daily x5 days., # 75 tab(s), Refills(s) 0, Pharmacy: [id number], 187, cm, 02/24/23 12:43:00 EST, Height/Length Dosing... Disposition Plan Discharge Prescription List Prescriptions predniSONE 10 mg Tab, 1 -, Oral, As Directed Follow-up With When Contact Information LEYDI ACEVES In 3 days 02/27/[address] [place] [address]- Business (1) Additional Instructions: Take the steroids once daily as prescribed to completed the course. Please follow-up with your primary care doctor in the next 2 to 3 days for further evaluation management. Please return to ED for any worsening symptoms. Follow-up with your orthopedic doctor for further evaluation management. Patient Education Knee Effusion, Fxnt-dk-Nyui Problem List/Past Medical History Ongoing No qualifying data Historical No qualifying data Procedure/Surgical History Arthroscopy of shoulder (03/19/2021). Medications Inpatient morphine 4 mg/mL Inj, 4 mg= 1 mL, IntraMuscular, Once Home allopurinol 100 mg Tab, 150 mg= 1.5 tab(s), Oral, Daily allopurinol 300 mg Tab, 300 mg= 1 tab(s), Oral, Daily alprazolam 0.5 mg Tab, 0.5 mg= 1 tab(s), Oral, BID, PRN amLODIPine 5 mg Tab, 5 mg= 1 tab(s), Oral, Daily BuPROPion (Eqv-Wellbutrin SR) 150 mg/12 hours oral tablet, extended release, 150 mg= 1 tab(s), Oral, BID carvedilol 6.25 mg Tab, 6.25 mg= 1 tab(s), Oral, BID cloNIDine 0.1 mg tab, 0.1 mg= 1 tab(s), Oral, Daily Colace 100 mg Cap, 100 mg= 1 cap(s), Oral, BID, PRN colchicine 0.6 mg Tab, 0.6 mg= 1 tab(s), Oral, Every other day ibuprofen 600 mg Tab, 600 mg= 1 tab(s), Oral, q8hr, PRN Percocet 325 mg-5 mg Tab, See Instructions, PRN predniSONE 10 mg Tab, 1 -, Oral, As Directed quetiapine 25 mg Tab, 25 mg= 1 tab(s), Oral, Daily tramadol 50 mg oral tablet, 50 mg= 1 tab(s), Oral, q4hr, PRN Valium 2 mg Tab, See Instructions, PRN Vitamin D 1000 intl units Tab, 25 mcg= 1 tab(s) (more content not included)... Normal [facility] Comment on above: Result Comment: Elec tronically Signed By: Ladi Huber DO\Date and Time Signed: 02/24/23 14:41 EST ED Patient Education Noteon 02-24-2023 ED Patient Education Note Orthopedics Knee Effusion Knee effusion means that you have extra fluid in your knee. This can cause pain and swelling. Your knee may be more difficult to bend and move. Common causes of knee effusion are: ? Arthritis. ? Infection. ? Injury. ? Autoimmune disease. This means that your body's defense system (immune system) mistakenly attacks healthy body tissues. Follow these instructions at home: If you have a brace or an immobilizer: ? Wear it as told by your doctor. Take it off only as told by your doctor. ? Check the skin around it every day. Tell your doctor if you see problems. ? Loosen the brace or immobilizer if your toes: ? Tingle. ? Become numb. ? Turn cold and blue. ? Keep the brace or immobilizer clean. ? If the brace or immobilizer is not waterproof: ? Do not let it get wet. ? Cover it with a watertight covering when you take a bath or shower. Managing pain, stiffness, and swelling ? If told, put ice on the affected area. To do this: ? If you have a removable brace or immobilizer, take it off as told by your doctor. ? Put ice in a plastic bag. ? Place a towel between your skin and the bag. ? Leave the ice on for 20 minutes, 2?3 times a day. ? Take off the ice if your skin turns bright red. This is very important. If you cannot feel pain, heat, or cold, you have a greater risk of damage to the area. ? Move your toes often. ? Raise your knee above the level of your heart while you are sitting or lying down. Activity ? Rest as told by your doctor. ? Use crutches to support your body weight. Do not use your injured leg to support your body weight until your doctor says that you can. ? Do exercises as told by your doctor. General instructions ? Take zbsk-kni-kckzdcm and prescription medicines only as told by your doctor. ? Do not smoke or use any products that contain nicotine or tobacco. If you need help quitting, ask your doctor. ? Wear an elastic bandage or a wrap that puts pressure on your knee (compression wrap) as told by your doctor. ? Keep all follow-up visits. Contact a doctor if: ? You continue to have pain in your knee. ? You have a fever or chills. Get help right away if: ? You have swelling or redness in your knee that gets worse or does not get better. ? You have very bad pain in your knee. Summary ? Knee effusion is when you have extra fluid in your knee. This can cause pain and swelling and can make it hard to bend and move your knee. ? Take cvub-umu-ukimanm and prescription medicines only as told by your doctor. ? If you have a brace or an immobilizer, wear it as told by your doctor. This information is not intended to replace advice given to you by your health care provider. Make sure you discuss any questions you have with your health care provider. Document Revised: 10/16/2020 Document Reviewed: 10/16/2020 Elsevier Patient Education ? 2022 [employer] Normal [facility] ED Patient Summaryon 023 ED Patient Summary (Inserted Image. Jodi ble to display) [place] [id number] Patient Discharge Instructions Person Information Name: NICK WRAY Age: 32 Years Arrival Date: 02/24/2023 12:18:34 Discharge Diagnosis: Swelling of joint, knee, right Primary Care Physician: LEYDI ACEVES MD Provider Information Primary Provider: Ladi Huber DO Advanced Director Equipment:None The exam and treatment you received in the Emergency Department were for an urgent problem and are not intended as complete care. It is important that you follow up with a doctor, nurse practitioner, or physician?s hardware sales assistant for ongoing care. If your symptoms become worse or you do not improve as expected and you are unable to reach your usual health care provider, you should return to the Emergency Department. We are available 24 hours a day. NICK WRAY has been given the following list of patient education materials, prescriptions and follow-up instructions: Follow-up Instructions: With: Address: When: LEYDI ACEVES [address] [place] [id number] Business (1) In 3 days 02/27/2023 Comments: Take the steroids once daily as prescribed to completed the course. Please follow-up with your primary care doctor in the next 2 to 3 days for further evaluation management. Please return to ED for any worsening symptoms. Follow-up with your orthopedic doctor for further evaluation management. In the event that this physician does not participate in your insurance network, please consult with your insurance company to find a nearby participating provider. Patient Education Materials: Knee Effusion, Lgwg-kw-Jomr A MESSAGE TO ALL PATIENTS REGARDING OPIOIDS PRESCRIPTION OPIOIDS: WHAT YOU NEED TO KNOW Prescription opioids can be used to help relieve rxbksjlv-xw-xiqkmg pain and are often prescribed following a surgery or injury, or for certain health conditions. These medications can be an important part of the treatment but also come with serious risks. It is important to work with your healthcare provider to make sure you are getting the safest, most effective care. WHAT ARE THE RISKS AND SIDE EFFECTS OF OPIOID USE? Prescription opioids carry serious risks of addiction and overdose, especially with prolonged use. An opioid overdose, often marked by slowed breathing, can cause sudden . The use of prescription opioids can have a number of side effects as well, even when taken as directed: ? Tolerance?meaning you might need to take more of the medication for the same pain relief ? Physical dependence?meaning you have symptoms of withdrawal when a medication is stopped ? Increased sensitivity to pain ? Constipation ? Nausea, vomiting, and dry mouth ? Sleepiness and dizziness ? Confusion ? Depression ? Low levels of testosterone that can result in lower sex drive, energy, and strength ? Itching and sweating RISKS ARE GREATER WITH: ? History of drug misuse, substance use disorder, or overdose ? Mental health conditions (such as depression or anxiety) ? Sleep apnea ? Older age (65 years and older) ? Avoid alcohol while taking prescription opioids. Also, unless specifically advised by your health care provider, medications to avoid include: ? Benzodiazepines (such as Xanax or Valium) ? Muscle relaxants (such as Soma or Flexeril) ? Hypnotics (such as Ambien or Lunesta) ? Other prescription opioids KNOW YOUR OPTIONS Talk to your health care provider about ways to manage your pain that don?t involve prescription opioids. Some of these options may actually work better and have fewer risks and side effects. Options may include: ? Pain relievers such as acetaminophen, ibuprofen, and naproxen ? Some medication that are also used for depression or seizures ? Physical therapy and exercise ? Cognitive behavioral therapy, a psychological, goal-directed approach, in which patients learn how to modify physical, behavioral, and emotional triggers of pain and stress. IF YOU ARE PRESCRIBED OPIOIDS FOR PAIN: ? Never take opioids in greater amounts or more often than prescribed. ? Follow up with your primary health care provider. o Work together to create a plan on how to manage your pain. o Talk about ways to help manage your pain that don?t involve prescription opioids. o Talk about any and all concerns and side effects. ? Help prevent misuse and abuse o Never sell or share prescription opioids. o Never use another person?s prescription opioids. ? Store prescription opioids in a secure place and out of reach of others (this may include visitors, children, friends, and family). ? Safely dispose of unused prescription opioids: Find your community drug take-back program or your pharmacy mail-back program, or flush them down the toilet, following guidance from the Food and Drug Administration (www.fd (more content not included)... Normal [facility] Crystals, Fluidson 3 Crystals,Fluid Positive Abnormal NEG [facility] Comment on above: Result Comment: FEW INTRACELLULAR AND MANY EXTRACELLULAR URIC ACID CRYSTALS Performed By: #### F LCRYS #### [facility] [address] [place] [address] Sales Developer: Krish Abdi MD [facility] [address] [facility] [place], [place] [id number] Sales Developer: Drew Soto MD #### FLDCT #### [facility] [address] [facility] [place], [place] [id number] Sales Developer: Drew Soto MD Pathologist Review: ELECTRONICALLY KEN Jovita SOTO MD [facility] Comment on above: Performed By: #### F LCRYS #### [facility] [address] [place] [address] Sales Developer: Krish Abdi MD [facility] [address] [place] [place], [place] [id number] Sales Developer: Drew Soto MD #### FLDCT #### [facility] [address] [place] [address] Sales Developer: Drew Soto MD Fluid Cell Count and Diffon 02-19-2023 Basophils/100 WBC (Bld) 0 % Normal 0 [facility] Comment on above: Performed By: #### F LCRYS #### [facility] [address] [place] [address] Sales Developer: Krish Abdi MD [facility] [address] [place] [address] Sales Developer: Drew Soto MD #### FLDCT #### [facility] [address] [place] [address] Sales Developer: Drew Soto MD Eosinophils/100 WBC (Bld) 0 % Normal 0 [facility] Comment on above: Performed By: #### F LCRYS #### [place] [address] [place] [address] Sales Developer: Krish Abdi MD [facility] [address] [place] [address] Sales Developer: Drew Soto MD #### FLDCT #### [facility] [address] [place] [address] Sales Developer: Drew Soto MD Lymphocytes/100 WBC (Bld) 10 % Normal [facility] Comment on above: Performed By: #### F LCRYS #### [facility] [address] [place] [address] Sales Developer: Krish Abdi MD [facility] [address] [place] [address] Sales Developer: Drew Soto MD #### FLDCT #### [facility] [address] [place] [address] Sales Developer: Drew Soto MD Mesa/Macrophage 0 % [facility] Comment on above: Performed By: #### F LCRYS #### [facility] [address] [place] [address] Sales Developer: Krish Abdi MD [facility] [address] [place] [address] Sales Developer: Drew Soto MD #### FLDCT #### [facility] [address] [place] [address] Sales Developer: Drew Soto MD Neutrophils/100 WBC (Bld) 90 % Normal [facility] Comment on above: Performed By: #### F LCRYS #### [facility] [address] [place] [address] Sales Developer: Krish Abdi MD [facility] [address] [place] [address] Sales Developer: Drew Soto MD #### FLDCT #### [facility] [address] [place] [address] Sales Developer: Drew Soto MD RBC (Bld) [#/Vol] 0.00193 10*6/uL Normal [facility] Comment on above: Performed By: #### F LCRYS #### [facility] [address] [place] [address] Sales Developer: Krish Abdi MD [facility] [address] [place] [address] Sales Developer: Drew Soto MD #### FLDCT #### [facility] [address] [place] [address] Sales Developer: Drew Soto MD WBC (Bld) [#/Vol] 9.96 10*3/uL Normal [facility] Comment on above: Performed By: #### F LCRYS #### [facility] [address] [place] [address] Sales Developer: Krish Abdi MD [facility] [address] [place] [address] Sales Developer: Drew Soto MD #### FLDCT #### [facility] [address] [place] [address] Sales Developer: Drew Soto MD Appearance (U) Cloudy [facility] Comment on above: Performed By: #### F LCRYS #### [facility] [address] [place] [address] Sales Developer: Krish Abdi MD [facility] [address] [place] [address] Sales Developer: Drew Soto MD #### FLDCT #### [facility] [address] [place] [address] Sales Developer: Drew Soto MD Color (U) Pale Yellow [facility] Comment on above: Performed By: #### F LCRYS #### [facility] [address] [place] [address] Sales Developer: Krish Abdi MD [facility] [address] [place] [address] Sales Developer: Drew Soto MD #### FLDCT #### [facility] [address] [place] [address] Sales Developer: Drew Soto MD Type of Specimen .FLUID Normal [facility] Comment on above: Performed By: #### F LCRYS #### [facility] [address] [place] [address] Sales Developer: Krish Abdi MD [facility] [address] [place] [address] Sales Developer: Drew Soto MD #### FLDCT #### [facility] [address] [place] [address] Sales Developer: MD Cyn Gutiérrez [facility] NANINICK M ([id number]) 1990 M Date Time Provider Department 11/13/22 [...] refill of a tapered prednisone sent to [facility] in [place], . Please advise. Patient has been identified by name and birthdate. Duration of symptoms: N/A Person calling: self Call patient at: at home [phone] (home) [phone] (cell) Was an appointment scheduled: No Closing statement: Results or non-symptom based questions: Thank you for calling , your call will be returned within the [...] Fully Assessed Reason for Visit: Patient Request [3739] Order(s):predniSONE (DELTASONE) 5 mg tabletTake 6 tab [...] Encounter Status:Closed by DELMY BOYLE on 11/13/22 [facility] 08-14-2022 CNOV Office Visit (RHEUAV ) -- NICK WRAY ([id number]) 1990 M Date Time Provider Department 08/14/22 [...] arthritic flares once every 4 months. Saw social services aide Dr. Jaime in [place] who did diagnostic knee aspiration which according to patient was positive for uric acid crystals. Treated with steroids and continued allopurinol. He has not seen Dr. Jaime since 2014. In 2014, he was hospitalized in [place] for acute polyarthritis. Saw social services aide while in hospital who told him that he possibly had RA. Discharged on steroids. His PCP switched him from allopurinol to Uloric Jan 2017. He also takes colchicine prn. No reduction in frequency or severity of his joint flares with Uloric. In 2016, he has been hospitalized 7-8 times for acute joint flares. Each time he is treated with steroids. Hospitalized at [facility] Apr 2017 for acute flare of [...] shoulder surgery by Dr. Tc Coffey at [facility]. No post op complications. Currently on PT - still working on shoulder ROM. 4. GENERAL HEALTH MAINTENANCE -continue follow up on his CKD with nephrology -he will follow up with his PCP for his general health issues RTC in 7 mon, sooner if needed INTERVAL HISTORY -at [facility], he was advised to increase allopurinol from 300 mg BID to 350 mg qam and 300 mg qpm but he is actually taking allopurinol 400 mg qam and 300 qpm instead. Tolerating this higher dose without issues. -He stopped drinking Nov 2021. He started drinking some since [facility]. -he had 2 flares of [...] (more content not included)... Normal [facility] ALT SerPl-cCncon 08-12-2022 ALT [Catalytic activity/Vol] 30 U/L Normal 10-54 [facility] Comment on above: Order Comment: Speci men Type: BLOOD SPECIMEN Ordering Facility: [facility] Address: [address] [place] [address] Performed By: #### 3 084-1 #### [facility] CLIA [id number] [address] [place], [place] [address] AST SerPl-cCncon 08-12-2022 AST [Catalytic activity/Vol] 28 U/L Normal 14-40 [facility] Comment on above: Order Comment: Speci men Type: BLOOD SPECIMEN Ordering Facility: [facility] Address: [address] [place] [address] Performed By: #### 3 084-1 #### [facility] CLIA [id number] [address] [place], [place] [address] Albumin SerPl-mCncon 023 Albumin [Mass/Vol] 4.5 g/dL Normal 3.9-4.9 [facility] Comment on above: Order Comment: Speci men Type: BLOOD SPECIMEN Ordering Facility: [facility] Address: [address] [place] [address] Performed By: #### 3 084-1 #### [facility] CLIA [id number] [address] [place] [address] CBC W Auto Differential pane l (Bld)on 06-14-2023 Basophils (Bld) [#/Vol] 0.00 10*3/uL Normal <0.11 [facility] Comment on above: Order Comment: Speci men Type: BLOOD SPECIMEN Ordering Facility: [facility] Address: [address] [place] [address] Performed By: #### 5 7021-8 #### [facility] CLIA [id number] [address] [place] [address] LAB CLIA [id number] [address] [place] [address] [place] Basophils/100 WBC (Bld) 0.0 % Normal [facility] Comment on above: Order Comment: Speci men Type: BLOOD SPECIMEN Ordering Facility: [facility] Address: [address] [place] [address] Performed By: #### 5 7021-8 #### [facility] CLIA [id number] [address] [place] [address] LAB CLIA [id number] [address] [place] [address] [place] Differential cell count method Nom (Bld) Manual Normal [facility] Comment on above: Order Comment: Speci men Type: BLOOD SPECIMEN Ordering Facility: [facility] Address: [address] [place] [address] Performed By: #### 5 7021-8 #### [facility] CLIA [id number] [address] [place] [address] LAB CLIA [id number] [address] [place] [address] [place] Eosinophils (Bld) [#/Vol] 0.08 10*3/uL Normal <0.46 [facility] Comment on above: Order Comment: Speci men Type: BLOOD SPECIMEN Ordering Facility: [facility] Address: [address] [place] [address] Performed By: #### 5 7021-8 #### [facility] CLIA [id number] [address] [place] [address] LAB CLIA [id number] [address] [place] [address] [place] Eosinophils/100 WBC (Bld) 0.9 % Normal [facility] Comment on above: Order Comment: Speci men Type: BLOOD SPECIMEN Ordering Facility: [facility] Address: [address] [place] [address] Performed By: #### 5 7021-8 #### [facility] CLIA [id number] [address] [place] [address] LAB CLIA [id number] [address] [place] [address] [place] Erythrocyte distribution width (RBC) [Ratio] 14.6 % Normal 11.5-15.0 [facility] Comment on above: Order Comment: Speci men Type: BLOOD SPECIMEN Ordering Facility: [facility] Address: [address] [place] [address] Performed By: #### 5 7021-8 #### [facility] CLIA [id number] [address] [place] [address] LAB CLIA [id number] [address] [place] [address] [place] Hematocrit (Bld) [Volume fraction] 45.7 % Normal 39.0-51.0 [facility] Comment on above: Order Comment: Speci men Type: BLOOD SPECIMEN Ordering Facility: [facility] Address: [address] [place], [place] [address] Performed By: #### 5 7021-8 #### [facility] CLIA [id number] [address] [place] [address] LAB CLIA [id number] [address] [place] [address] [place] Hemoglobin (Bld) [Mass/Vol] 15.3 g/dL Normal 13.0-17.0 [facility] Comment on above: Order Comment: Speci men Type: BLOOD SPECIMEN Ordering Facility: [facility] Address: [address] [place] [address] Performed By: #### 5 7021-8 #### [facility] CLIA [id number] [address] [place] [address] LAB CLIA [id number] [address] [place] [address] [place] Lymphocytes (Bld) [#/Vol] 3.27 10*3/uL Normal 1.00-4.00 [facility] Comment on above: Order Comment: Speci men Type: BLOOD SPECIMEN Ordering Facility: [facility] Address: [address] [place] [address] Performed By: #### 5 7021-8 #### [facility] CLIA [id number] [address] [place] [address] LAB CLIA [id number] [address] [place] [address] [place] Lymphocytes/100 WBC (Bld) 37.7 % Normal [facility] Comment on above: Order Comment: Speci men Type: BLOOD SPECIMEN Ordering Facility: [facility] Address: [address] [place] [address] Performed By: #### 5 7021-8 #### [facility] CLIA [id number] [address] [place] [address] LAB CLIA [id number] [address] [place] [address] [place] MCH (RBC) [Entitic mass] 29.4 pg Normal 26.0-34.0 [facility] Comment on above: Order Comment: Speci men Type: BLOOD SPECIMEN Ordering Facility: [facility] Address: [address] [place] [address] Performed By: #### 5 7021-8 #### [facility] CLIA [id number] [address] [place] [address] [facility] CLIA [id number] [address] [place] [address] [place] MCHC (RBC) [Mass/Vol] 33.5 g/dL Normal 30.5-36.0 [facility] Comment on above: Order Comment: Speci men Type: BLOOD SPECIMEN Ordering Facility: [facility] Address: [address] [place] [address] Performed By: #### 5 7021-8 #### [facility] CLIA [id number] [address] [place] [address] LAB CLIA [id number] [address] [place] [address] [place] MCV (RBC) [Entitic vol] 87.9 fL Normal 80.0-100.0 [facility] Comment on above: Order Comment: Speci men Type: BLOOD SPECIMEN Ordering Facility: [facility] Address: [address] [place], [place] [address] Performed By: #### 5 7021-8 #### [facility] CLIA [id number] [address] [place] [address] LAB CLIA [id number] [address] [place] [address] [place] Monocytes (Bld) [#/Vol] 0.23 10*3/uL Normal <0.87 [facility] Comment on above: Order Comment: Speci men Type: BLOOD SPECIMEN Ordering Facility: [facility] Address: [address] [place], [place] [id number] Performed By: #### 5 7021-8 #### [facility] CLIA [id number] [address] [place] [address] LAB CLIA [id number] [address] [place] [address] [place] Monocytes/100 WBC (Bld) 2.6 % Normal [facility] Comment on above: Order Comment: Speci men Type: BLOOD SPECIMEN Ordering Facility: [facility] Address: [address] Performed By: #### 5 7021-8 #### [facility] CLIA [id number] [address] [place] [address] LAB CLIA [id number] [address] [place] [address] [place] Neutrophils (Bld) [#/Vol] 5.10 10*3/uL Normal 1.45-7.50 [facility] Comment on above: Order Comment: Speci men Type: BLOOD SPECIMEN Ordering Facility: [facility] Address: [address] Performed By: #### 5 7021-8 #### [facility] CLIA [id number] [address] [place] [address] LAB CLIA [id number] [address] [place] [address] [place] Neutrophils/100 WBC (Bld) 58.8 % Normal [facility] Comment on above: Order Comment: Speci men Type: BLOOD SPECIMEN Ordering Facility: [facility] Address: [address] Performed By: #### 5 7021-8 #### [facility] CLIA [id number] [address] [place] [address] LAB CLIA [id number] [address] [place] [address] [place] Nucleated RBC (Bld) [#/Vol] 10*3/uL Normal <0.01 [facility] Comment on above: Order Comment: Speci men Type: BLOOD SPECIMEN Ordering Facility: [facility] Address: [address] [place] [id number] Performed By: #### 5 7021-8 #### [facility] CLIA [id number] [address] [place] [address] LAB CLIA [id number] [address] [place] [address] [place] Nucleated RBC/100 WBC (Bld) [Ratio] 0.0 /100 WBC Normal [facility] Comment on above: Order Comment: Speci men Type: BLOOD SPECIMEN Ordering Facility: [facility] Address: [address] [place] [address] Performed By: #### 5 7021-8 #### [facility] CLIA [id number] [address] [place] [address] LAB CLIA [id number] [address] [place] [address] [place] Platelet mean volume (Bld) [Entitic vol] 10.1 fL Normal 9.0-12.7 [facility] Comment on above: Order Comment: Speci men Type: BLOOD SPECIMEN Ordering Facility: [facility] Address: [address] [place], [place] [id number] Performed By: #### 5 7021-8 #### [facility] CLIA [id number] [address] [place] [address] LAB CLIA [id number] [address] [place] [address] [place] Platelets (Bld) [#/Vol] 289 10*3/uL Normal 150-400 [facility] Comment on above: Order Comment: Speci men Type: BLOOD SPECIMEN Ordering Facility: [facility] Address: [address] [place] [address] Performed By: #### 5 7021-8 #### [facility] CLIA [id number] [address] [place] [address] LAB CLIA [id number] [address] [place] [address] [place] Platelets Estimate (Bld) [#/Vol] Adequate Normal [facility] Comment on above: Order Comment: Speci men Type: BLOOD SPECIMEN Ordering Facility: [facility] Address: [address] [place] [address] Performed By: #### 5 7021-8 #### [facility] CLIA [id number] [address] [place] [address] LAB CLIA [id number] [address] [place] [address] [place] RBC (Bld) [#/Vol] 5.20 10*6/uL Normal 4.20-6.00 [facility] Comment on above: Order Comment: Speci men Type: BLOOD SPECIMEN Ordering Facility: [facility] Address: [address] [place] [address] Performed By: #### 5 7021-8 #### [facility] CLIA [id number] [address] [place] [address] LAB CLIA [id number] [address] [place] [address] [place] RED CELL MORPH Reviewed: unremarkable Normal [facility] Comment on above: Order Comment: Speci men Type: BLOOD SPECIMEN Ordering Facility: [facility] Address: [address] [place] [address] Performed By: #### 5 7021-8 #### [facility] CLIA [id number] [address] [place] [address] LAB CLIA [id number] [address] [place] [address] [place] WBC (Bld) [#/Vol] 8.67 10*3/uL Normal 3.70-11.00 [facility] Comment on above: Order Comment: Speci men Type: BLOOD SPECIMEN Ordering Facility: [facility] Address: [address] [place] [id number] Performed By: #### 5 7021-8 #### [facility] CLIA [id number] [address] [place] [address] LAB CLIA [id number] [address] [place] [address] [place] CREATININE BLDon 08-12-2022 Creatinine [Mass/Vol] 1.28 mg/dL High 0.73-1.22 [facility] Comment on above: Order Comment: Speci men Type: BLOOD SPECIMEN Ordering Facility: [facility] Address: [address] [place] [address] Performed By: #### C RET1 #### [facility] CLIA [id number] [address] [place], [place] [id number] ESTIMATED GLOMERULAR FILTRATION RATE 76 mL/min/1.73m??? Normal >=60 [facility] Comment on above: Order Comment: Speci men Type: BLOOD SPECIMEN Ordering Facility: [facility] Address: [address] [place] [address] Result Comment: Jyoti mated Glomerular Filtration Rate [...] GFR. Performed By: #### C RET1 #### [facility] CLIA [id number] [address] [place] [address] CRP SerPl-mCncon 08-12-2022 CRP [Mass/Vol] mg/L Normal <0.9 [facility] Comment on above: Order Comment: Speci men Type: BLOOD SPECIMEN Ordering Facility: [facility] Address: [address] [place] [address] Performed By: #### 3 084-1 #### [facility] CLIA [id number] [address] [place] [address] ESR Westergren method (Bld) [Velocity]on 08-12-2022 ESR (Bld) [Velocity] 5 mm/h Normal 0-15 [facility] Comment on above: Order Comment: Speci men Type: BLOOD SPECIMEN Ordering Facility: [facility] Address: [address] [place], [place] [id number] Performed By: #### 4 537-7 #### [facility] CLIA [id number] [address] [facility] [id number] [id number] [place] Urate SerPl-mCncon 3 Urate [Mass/Vol] 9.2 mg/dL High 4.0-8.1 [facility] Comment on above: Order Comment: Speci men Type: BLOOD SPECIMEN Ordering Facility: [facility] Address: [address] [place] [address] Performed By: #### 3 084-1 #### [facility] CLIA [id number] [address] [place] [address] CBC AUTO DIFFon 06-28-2022 BASO # 0.0 103/ul Normal 0.0-0.1 [facility] Comment on above: Performed By: #### C BC #### [facility] [address] [place] [address] Dr. Nilay Gibbs Basophils/100 WBC (Bld) 0.2 % Normal 0.2-2.0 [facility] Comment on above: Performed By: #### C BC #### [facility] [address] [place] [address] Dr. Nilay Gibbs EO # 0.0 103/ul Normal 0.0-0.7 [facility] Comment on above: Performed By: #### C BC #### [facility] [address] [place] [address] Dr. Nilay Gibbs Eosinophils/100 WBC (Bld) 0.3 % Critically low 0.9-7.0 [facility] Comment on above: Performed By: #### C BC #### [facility] [address] [place] [address] Dr. Nilay Gibbs Erythrocyte distribution width (RBC) [Ratio] 13.9 % Normal 11.0-15.0 [facility] Comment on above: Performed By: #### C BC #### [facility] [address] [place] [address] Dr. Nilay Gibbs Hematocrit (Bld) [Volume fraction] 39.8 % Critically low 42.0-54.0 [facility] Comment on above: Performed By: #### C BC #### [facility] [address] [place] [address] Dr. Nilay Gibbs Hemoglobin (Bld) [Mass/Vol] 13.2 g/dL Critically low 14.0-18.0 [facility] Comment on above: Performed By: #### C BC #### [facility] [address] [place] [address] Dr. Nilay Gibbs IG # 0.04 10e3/ul Critically high 0.00-0.03 [facility] Comment on above: Performed By: #### C BC #### [facility] [address] [place] [address] Dr. Nilay Gibbs IG % 0.4 % Normal 0.0-0.5 [facility] Comment on above: Performed By: #### C BC #### [facility] [address] [place] [address] Dr. Nilay Gibbs LYMPH # 1.8 103/ul Normal 1.2-3.8 [facility] Comment on above: Performed By: #### C BC #### [facility] [address] [place] [address] Dr. Nilay Gibbs Lymphocytes/100 WBC (Bld) 17.5 % Critically low 20.5-60.0 [facility] Comment on above: Performed By: #### C BC #### [facility] [address] [place] [address] Dr. Nilay Gibbs MANUAL DIFF REQ NO Normal [facility] Comment on above: Performed By: #### C BC #### [facility] [address] [place] [address] Dr. Nilay Gibbs MCH (RBC) [Entitic mass] 29.3 pg Normal 25.9-34.0 [facility] Comment on above: Performed By: #### C BC #### [facility] [address] [place] [address] Dr. Nilay Gibbs MCHC (RBC) [Mass/Vol] 33.2 g/dL Normal 29.9-35.2 [facility] Comment on above: Performed By: #### C BC #### [facility] [address] [place] [address] Dr. Nilay Gibbs MCV (RBC) [Entitic vol] 88.4 fL Normal 80.0-94.0 [facility] Comment on above: Performed By: #### C BC #### [facility] [address] [place] [address] Dr. Nilay Gibbs MONO # 0.9 103/ul Critically high 0.3-0.8 [facility] Comment on above: Performed By: #### C BC #### [facility] [address] [place] [address] Dr. Nilay Gibbs Monocytes/100 WBC (Bld) 9.4 % Normal 1.7-12.0 [facility] Comment on above: Performed By: #### C BC #### [facility] [address] [place] [address] Dr. Nilay Gibbs NEUT # 7.2 103/ul Critically high 1.4-6.5 [facility] Comment on above: Performed By: #### C BC #### [facility] [address] [place] [address] Dr. Nilay Gibbs Neutrophils/100 WBC (Bld) 72.2 % Normal 43.0-75.0 [facility] Comment on above: Performed By: #### C BC #### [facility] [address] [place] [address] Dr. Nilay Gibbs Platelet mean volume (Bld) [Entitic vol] 9.6 fL Normal 9.5-13.5 [facility] Comment on above: Performed By: #### C BC #### [facility] [address] [place] [address] Dr. Nilay Gibbs PLT 356 103/ul Normal 150-450 [facility] Comment on above: Performed By: #### C BC #### [facility] [address] [place] [address] Dr. Nilay Gibbs RBC 4.50 106/ul Critically low 4.70-6.10 [facility] Comment on above: Performed By: #### C BC #### [facility] [address] [address] [address] Nilay Gibbs WBC 10.0 103/ul Normal 4.0-11.0 [facility] Comment on above: Performed By: #### C BC #### [facility] [address] [place] [address] Dr. Nilay Gibbs PROF CHEM 8 (BAS METB)on Anion gap [Moles/Vol] 12.4 mmol/L Normal [facility] Comment on above: Performed By: #### A MM #### [facility] [address] [place] [address] Dr. Nilay Gibbs Calcium [Mass/Vol] 9.4 mg/dL Normal 8.5-10.1 [facility] Comment on above: Performed By: #### A MM #### [facility] [address] [place] [address] Dr. Nilay Gibbs Chloride [Moles/Vol] 105 mmol/L Normal 98-107 [facility] Comment on above: Performed By: #### A MM #### [facility] [address] [place] [address] Dr. Nilay Gibbs CO2 [Moles/Vol] 25.6 mmol/L Normal 21.0-32.[address] [facility] Comment on above: Performed By: #### A MM #### [facility] [address] [place] [address] Dr. Nilay Gibbs Creatinine [Mass/Vol] 1.18 mg/dL Normal 0.70-1.30 [facility] Comment on above: Performed By: #### A MM #### [facility] [address] [place] [address] Dr. Nilay Gibbs EGFR-AF ENGLISH >60 Normal >=60 [facility] Comment on above: Performed By: #### A MM #### [facility] [address] [place] [address] Dr. Nilay Gibbs EGFR-NON AF ENGLISH >60 Normal >=60 [facility] Comment on above: Performed By: #### A MM #### [facility] [address] [address] [address] Nilay Gibbs Glucose [Mass/Vol] 125 mg/dL Critically high 74-106 [facility] Comment on above: Performed By: #### A MM #### [facility] [address] [address] [address] Nilay Gibbs Potassium [Moles/Vol] 4.3 mmol/L Normal 3.5-5.1 [facility] Comment on above: Performed By: #### A MM #### [facility] [address] [address] [address] Nilay Gibbs Sodium [Moles/Vol] 139 mmol/L Normal 136-145 [facility] Comment on above: Performed By: #### A MM #### [facility] [address] [place] [address] Dr. Nilay Gibbs Urea nitrogen [Mass/Vol] 15.0 mg/dL Normal 7.0-18.0 [facility] Comment on above: Performed By: #### A MM #### [facility] [address] [place] [address] Dr. Nilay Gibbs Urea nitrogen/Creatinine [Mass ratio] 12.7 mg/mg Normal [facility] Comment on above: Performed By: #### A MM #### [facility] [address] [place] [address] Dr. Nilay Gibbs CBC AUTO DIFFon 06-20-2022 BASO # 0.0 103/ul Normal 0.0-0.1 [facility] Comment on above: Performed By: #### A MM #### [facility] [address] [place] [address] Dr. Nilay Gibbs Basophils/100 WBC (Bld) 0.2 % Normal 0.2-2.0 [facility] Comment on above: Performed By: #### A MM #### [facility] [address] [place] [address] Dr. Nilay Gibbs EO # 0.0 103/ul Normal 0.0-0.7 [facility] Comment on above: Performed By: #### A MM #### [facility] [address] [place] [address] Dr. Nilay Gibbs Eosinophils/100 WBC (Bld) 0.3 % Critically low 0.9-7.0 [facility] Comment on above: Performed By: #### A MM #### [facility] [address] [place] [address] Dr. Nilay Gibbs Erythrocyte distribution width (RBC) [Ratio] 14.3 % Normal 11.0-15.0 [facility] Comment on above: Performed By: #### A MM #### [facility] [address] [place] [address] Dr. Nilay Gibbs Hematocrit (Bld) [Volume fraction] 39.3 % Critically low 42.0-54.0 [facility] Comment on above: Performed By: #### A MM #### [facility] [address] [place] [address] Dr. Nilay Gibbs Hemoglobin (Bld) [Mass/Vol] 13.1 g/dL Critically low 14.0-18.0 [facility] Comment on above: Performed By: #### A MM #### [facility] [address] [place] [address] Dr. Nilay Gibbs IG # 0.03 10e3/ul Normal 0.00-0.03 [facility] Comment on above: Performed By: #### A MM #### [facility] [address] [place] [address] Dr. iNlay Gibbs IG % 0.3 % Normal 0.0-0.5 [facility] Comment on above: Performed By: #### A MM #### [facility] [address] [place] [address] Dr. Nilay Gibbs LYMPH # 1.7 103/ul Normal 1.2-3.8 [facility] Comment on above: Performed By: #### A MM #### [facility] [address] [place] [address] Dr. Nilay Gibbs Lymphocytes/100 WBC (Bld) 14.5 % Critically low 20.5-60.0 [facility] Comment on above: Performed By: #### A MM #### [facility] [address] [address] [address] Nilay Gibbs MANUAL DIFF REQ NO Normal [facility] Comment on above: Performed By: #### A MM #### [facility] [address] [place] [address] Dr. Nilay Gibbs MCH (RBC) [Entitic mass] 29.2 pg Normal 25.9-34.0 [facility] Comment on above: Performed By: #### A MM #### [facility] [address] [place] [address] Dr. Nilay Gibbs MCHC (RBC) [Mass/Vol] 33.3 g/dL Normal 29.9-35.2 [facility] Comment on above: Performed By: #### A MM #### [facility] [address] [place] [address] Dr. Nilay Gibbs MCV (RBC) [Entitic vol] 87.5 fL Normal 80.0-94.0 [facility] Comment on above: Performed By: #### A MM #### [facility] [address] [place] [address] Dr. Nilay Gibbs MONO # 1.3 103/ul Critically high 0.3-0.8 [facility] Comment on above: Performed By: #### A MM #### [facility] [address] [place] [address] Dr. Nilay Gibbs Monocytes/100 WBC (Bld) 10.9 % Normal 1.7-12.0 [facility] Comment on above: Performed By: #### A MM #### [facility] [address] [place] [address] Dr. Nilay Gibbs NEUT # 8.7 103/ul Critically high 1.4-6.5 [facility] Comment on above: Performed By: #### A MM #### [facility] [address] [place] [address] Dr. Nilay Gibbs Neutrophils/100 WBC (Bld) 73.8 % Normal 43.0-75.0 [facility] Comment on above: Performed By: #### A MM #### [facility] [address] [address] [address] Nilay Gibbs Platelet mean volume (Bld) [Entitic vol] 10.9 fL Normal 9.5-13.5 [facility] Comment on above: Performed By: #### A MM #### [facility] [address] [place] [address] Dr. Nilay Gibbs PLT 171 103/ul Normal 150-450 [facility] Comment on above: Performed By: #### A MM #### [facility] [address] [place] [address] Dr. Nilay Gibbs RBC 4.49 106/ul Critically low 4.70-6.10 [facility] Comment on above: Performed By: #### A MM #### [facility] [address] [place] [address] Dr. Nilay Gibbs WBC 11.7 103/ul Critically high 4.0-11.[address] [facility] Comment on above: Performed By: #### A MM #### [facility] [address] [place] [address] Dr. Nilay Gibbs CRPon 06-20-2022 CRP 25.4 mg/dL Critically high <=1.0 [facility] Comment on above: Performed By: #### C RP, CMP #### [facility] [address] [place] [address] Dr. Nilay Gibbs CULTURE BLOODon 06-20-2022 Microscopic examination of blood, culture Culture Observations: NO GROWTH AT 5 DAYS. Normal [facility] Comment on above: Performed By: #### C MP #### [facility] [address] [place] [address] Dr. Nilay Gibbs Microscopic examination of blood, culture Culture Observations: NO GROWTH AT 5 DAYS. Normal [facility] Comment on above: Performed By: #### C MP #### [facility] [address] [place] [address] Dr. Nilay Gibbs LACTATE/LACTIC ACIDon 2022 Lactate [Moles/Vol] 0.7 mmol/L Normal 0.4-2.0 [facility] Comment on above: Performed By: #### A MM #### [facility] [address] [address] [address] Nilay Gibbs PROF 14(COMP METB)on 023 Albumin [Mass/Vol] 3.8 g/dL Normal 3.4-5.0 [facility] Comment on above: Performed By: #### C RP, CMP #### [facility] [address] [address] [address] Nilay Gibbs Albumin/Globulin [Mass ratio] 1.1 {ratio} Normal [facility] Comment on above: Performed By: #### C RP, CMP #### [facility] [address] [address] [address] Nilay Gibbs ALP [Catalytic activity/Vol] 85 U/L Normal 46-116 [facility] Comment on above: Performed By: #### C RP, CMP #### [facility] [address] [place] [address] Dr. Nilay Gibbs ALT [Catalytic activity/Vol] 29 U/L Normal 16-63 [facility] Comment on above: Performed By: #### C RP, CMP #### [facility] [address] [address] [address] Nilay Gibbs Anion gap [Moles/Vol] 15.2 mmol/L Normal [facility] Comment on above: Performed By: #### C RP, CMP #### [facility] [address] [address] [address] Nilay Gibbs AST [Catalytic activity/Vol] 20 U/L Normal 15-37 [facility] Comment on above: Performed By: #### C RP, CMP #### [facility] [address] [address] [address] Nilay Gibbs Bilirubin [Mass/Vol] 1.1 mg/dL Critically high 0.2-1.0 [facility] Comment on above: Performed By: #### C RP, CMP #### [facility] [address] [address] [address] Nilay Gibbs Calcium [Mass/Vol] 9.4 mg/dL Normal 8.5-10.1 [facility] Comment on above: Performed By: #### C RP, CMP #### [facility] [address] [address] [address] Nilay Gibbs Chloride [Moles/Vol] 99 mmol/L Normal 98-107 [facility] Comment on above: Performed By: #### C RP, CMP #### [facility] [address] [address] [address] Nilay Gibbs CO2 [Moles/Vol] 25.7 mmol/L Normal 21.0-32.0 [facility] Comment on above: Performed By: #### C RP, CMP #### [facility] [address] [address] [address] Nilay Gibbs Creatinine [Mass/Vol] 1.32 mg/dL Critically high 0.70-1.30 [facility] Comment on above: Performed By: #### C RP, CMP #### [facility] [address] [place] [address] Dr. Nilay Gibbs EGFR-AF ENGLISH >60 Normal >=60 [facility] Comment on above: Performed By: #### C RP, CMP #### [facility] [address] [place] [address] Dr. Nilay Gibbs EGFR-NON AF ENGLISH >60 Normal >=60 [facility] Comment on above: Performed By: #### C RP, CMP #### [facility] [address] [place] [address] Dr. Nilay Gibbs Globulin (S) [Mass/Vol] 3.6 g/dL Normal [facility] Comment on above: Performed By: #### C RP, CMP #### [facility] [address] [place] [address] Dr. Nilay Gibbs Glucose [Mass/Vol] 106 mg/dL Normal 74-106 [facility] Comment on above: Performed By: #### C RP, CMP #### [facility] [address] [address] [address] Nilay Gibbs Potassium [Moles/Vol] 3.9 mmol/L Normal 3.5-5.1 [facility] Comment on above: Performed By: #### C RP, CMP #### [facility] [address] [address] [address] Nilay Gibbs Protein [Mass/Vol] 7.4 g/dL Normal 6.4-8.2 [facility] Comment on above: Performed By: #### C RP, CMP #### [facility] [address] [address] [address] Nilay Gibbs Sodium [Moles/Vol] 136 mmol/L Normal 136-145 [facility] Comment on above: Performed By: #### C RP, CMP #### [facility] [address] [address] [address] Nilay Gibbs Urea nitrogen [Mass/Vol] 10.0 mg/dL Normal 7.0-18.0 [facility] Comment on above: Performed By: #### C RP, CMP #### [facility] [address] [place] [address] Dr. Nilay Gibbs Urea nitrogen/Creatinine [Mass ratio] 7.6 mg/mg Normal [facility] Comment on above: Performed By: #### C RP, CMP #### [facility] [address] [place] [address] Dr. Nilay Gibbs SED RATE [facility] 2022 SED RATE 46 mm/hr Critically high <=15 [facility] Comment on above: Performed By: #### S EDR #### [facility] [address] [place] [address] Dr. Nilay Gibbs [facility]19 [facility]on SARS-CoV-2 (COVID-19) RNA TALHA+probe Ql (Unsp spec) Not detected Normal NOT DETECTED [facility] Comment on above: Result Comment: When [...] for this test is supported by the [place] of [employer] and Human Service's declaration that [...] used). Performed By: #### A MM #### [facility] [address] [place] [address] Dr. Nilay Gibbs INFLUENZA A AND B AGon 01-31 INFLUANEGH SEE BELOW Normal [facility] Comment on above: Result Comment: Nega tive for Flu A protein angiten. Infection due to Flu A cannot be ruled out. Flu A angiten in the sample may be below the detection limit of the test. Performed By: #### A MM #### [facility] [address] [place] [address] Dr. Nilay Gibbs INFLUBNEGH SEE BELOW Normal [facility] Comment on above: Result Comment: Nega tive for Flu B protein antigen. Infection due to Flu B cannot be ruled out. Flu B antigen in the sample may be below the detection limit of the test. Performed By: #### A MM #### [facility] [address] [place] [address] Dr. Nilay Gibbs INFLUENZA A AG Negative Normal NEGATIVE SEE COMMENT [facility] Comment on above: Performed By: #### A MM #### [facility] [address] [place] [address] Dr. Nilay Gibbs INFLUENZA B AG Negative Normal NEGATIVE SEE COMMENT [facility] Comment on above: Performed By: #### A MM #### [facility] [address] [place] [address] Dr. Nilay Gibbs INTERNAL CONTROLS Within Normal Limits Normal Wi thin Normal Limits [facility] Comment on above: Performed By: #### A MM #### [facility] [address] [place] [address] Dr. Nilay Gibbs Cholesterol [Mass/volume] in Serum or PlasmaOrdered By: Adam Young on 12-08-2021 Cholesterol [Mass/Vol] 205 mg/dL 140-200 [facility] Comment on above: Chol less than 200 m g/dl low riskChol 201-239 mg/dl borderline riskChol 240 mg/dl and greater high risk Cholesterol in LDL Calc [Mas s/Vol]Ordered By: Adam Young on 12-08-2021 Cholesterol in LDL [Mass/Vol] 120 mg/dL 0-100 [facility] Comment on above: LDL ATP III CLASSIFI CATIONLDL less than 100 mg/dL OptimalLDL 100-129 mg/dL Near or above optimalLDL 130-159 mg/dL Borderline highLDL 160-189 mg/dL HighLDL greater than 189 mg/dL Very high Cholesterol in VLDL Calc [Ma ss/Vol]Ordered By: Adam Young on 12-08-2021 Cholesterol in VLDL [Mass/Vol] 37 mg/dL [facility] No Panel InformationOrdered By: Adam Young on 12-08-2021 25-Hydroxy Vitamin D Total 50.6 ng/mL 30-100 [facility] Comment on above: VITAMIN D STATUS 25( [...] Cholesterol in HDL [Mass/Vol] 47 mg/dL 29-71 [facility] Comment on above: HDL CHOL ATP-III CLA SSIFICATION Cardiovascular RiskHDL > or equal to 60 mg/dL LOWHDL < 40 mg/dL HIGH Serum or plasma total choles terol/high density lipoprotein (HDL) cholesterol mass ratOrdered By: Adam Young on 12-08-2021 Cholesterol.total/Ch olesterol in HDL [Mass ratio] 4.4 {ratio} <5.0 [facility] TSH DL <= 0.005 mIU/L QnOrde red By: Adam Young on 12-08-2021 TSH Qn 0.75 m[IU]/L 0.45-5.33 [facility] Triglyceride [Mass/volume] i n Serum or PlasmaOrdered By: Adam Young on 12-08-2021 Triglyceride [Mass/Vol] 188 mg/dL 35-149 [facility] Comment on above: TRIG ATP III CLASSIF ICATIONTRIG less than 150 mg/dL NormalTRIG 150-199 mg/dL Borderline highTRIG 200-500 mg/dL High TRIG greater than 500 mg/dL Very highStandard traceable to the Center for Disease Conrtrol and Prevention (CDC) test method. [facility]19 [facility]on SARS-CoV-2 (COVID-19) RNA TALHA+probe Ql (Unsp spec) Not detected Normal NOT DETECTED [facility] Comment on above: Result Comment: When [...] for this test is supported by the [place] of Health and Human Service's declaration that [...] used). Performed By: #### C MP #### [facility] [address] [address] [address] Nilay Gibbs ETHANOL (BLD ALC)on 12-08-19 22 Ethanol [Mass/Vol] 288 mg/dL Normal [facility] Comment on above: Performed By: #### C MP #### [facility] [address] [address] [address] Nilay Gibbs ALC NOTE NOTE: 80 mg/dl is th e legal limit for a blood alcohol level Normal [facility] Comment on above: Performed By: #### C MP #### [facility] [address] [place] [address] Dr. Nilay Gibbs Performed By: #### A MM #### [facility] [address] [place] [address] Dr. Nilay Gibbs Ethanol [Mass/Vol] 130 mg/dL Normal [facility] Comment on above: Performed By: #### A MM #### [facility] [address] [place] [address] Dr. Nilay Gibbs Ethanol [Mass/Vol] 196 mg/dL Normal [facility] Comment on above: Performed By: #### A MM #### [facility] [address] [place] [address] Dr. Nilay Gibbs ACETAMINOPHENon 12-06-2021 Acetaminophen [Mass/Vol] ug/mL Critically low 10.0-30.0 [facility] Comment on above: Performed By: #### A CET #### [facility] [address] [place] [address] Dr. Nilay Gibbs AMMONIAon 12-06-2021 Ammonia (P) [Moles/Vol] 22 umol/L Normal 11-32 [facility] Comment on above: Performed By: #### A MM #### [facility] [address] [place] [address] Dr. Nilay Gibbs CBC AUTO DIFFon 12-06-2021 BASO # 0.0 103/ul Normal 0.0-0.1 [facility] Comment on above: Performed By: #### A MM #### [facility] [address] [place] [address] Dr. Nilay Gibbs Basophils/100 WBC (Bld) 0.5 % Normal 0.2-2.0 [facility] Comment on above: Performed By: #### A MM #### [facility] [address] [place] [address] Dr. Nilay Gibbs EO # 0.1 103/ul Normal 0.0-0.7 [facility] Comment on above: Performed By: #### A MM #### [facility] [address] [place] [address] Dr. Nilay Gibbs Eosinophils/100 WBC (Bld) 1.0 % Normal 0.9-7.0 [facility] Comment on above: Performed By: #### A MM #### [facility] [address] [place] [address] Dr. Nilay Gibbs Erythrocyte distribution width (RBC) [Ratio] 12.9 % Normal 11.0-15.0 [facility] Comment on above: Performed By: #### A MM #### [facility] [address] [place] [address] Dr. Nilay Gibbs Hematocrit (Bld) [Volume fraction] 40.5 % Critically low 42.0-54.0 [facility] Comment on above: Performed By: #### A MM #### [facility] [address] [place] [address] Dr. Nilay Gibbs Hemoglobin (Bld) [Mass/Vol] 13.9 g/dL Critically low 14.0-18.0 [facility] Comment on above: Performed By: #### A MM #### [facility] [address] [place] [address] Dr. Nilay Gibbs IG # 0.02 10e3/ul Normal 0.00-0.03 [facility] Comment on above: Performed By: #### A MM #### [facility] [address] [place] [address] Dr. Nilay Gibbs IG % 0.3 % Normal 0.0-0.5 [facility] Comment on above: Performed By: #### A MM #### [facility] [address] [place] [address] Dr. Nilay Gibbs LYMPH # 2.7 103/ul Normal 1.2-3.8 [facility] Comment on above: Performed By: #### A MM #### [facility] [address] [place] [address] Dr. Nilay Gibbs Lymphocytes/100 WBC (Bld) 45.2 % Normal 20.5-60.0 [facility] Comment on above: Performed By: #### A MM #### [facility] [address] [place] [address] Dr. Nilay Gibbs MANUAL DIFF REQ NO Normal [facility] Comment on above: Performed By: #### A MM #### [facility] [address] [place] [address] Dr. Nilay Gibbs MCH (RBC) [Entitic mass] 29.8 pg Normal 25.9-34.0 [facility] Comment on above: Performed By: #### A MM #### [facility] [address] [place] [address] Dr. Nilay Gibbs MCHC (RBC) [Mass/Vol] 34.3 g/dL Normal 29.9-35.2 [facility] Comment on above: Performed By: #### A MM #### [facility] [address] [place] [address] Dr. Nilay Gibbs MCV (RBC) [Entitic vol] 86.9 fL Normal 80.0-94.0 [facility] Comment on above: Performed By: #### A MM #### [facility] [address] [place] [address] Dr. Nilay Gibbs MONO # 0.4 103/ul Normal 0.3-0.8 [facility] Comment on above: Performed By: #### A MM #### [facility] [address] [place] [address] Dr. Nilay Gibbs Monocytes/100 WBC (Bld) 6.3 % Normal 1.7-12.0 [facility] Comment on above: Performed By: #### A MM #### [facility] [address] [place] [address] Dr. Nilay Gibbs NEUT # 2.7 103/ul Normal 1.4-6.5 [facility] Comment on above: Performed By: #### A MM #### [facility] [address] [place] [address] Dr. Nilay Gibbs Neutrophils/100 WBC (Bld) 46.7 % Normal 43.0-75.0 [facility] Comment on above: Performed By: #### A MM #### [facility] [address] [place] [address] Dr. Nilay Gibbs Platelet mean volume (Bld) [Entitic vol] 10.4 fL Normal 9.5-13.5 [facility] Comment on above: Performed By: #### A MM #### [facility] [address] [place] [address] Dr. Nilay Gibbs PLT 237 103/ul Normal 150-450 [facility] Comment on above: Performed By: #### A MM #### [facility] [address] [address] [address] Nilay Gibbs RBC 4.66 106/ul Critically low 4.70-6.10 [facility] Comment on above: Performed By: #### A MM #### [facility] [address] [place] [address] Dr. Nilay Gibbs WBC 5.9 103/ul Normal 4.0-11.0 [facility] Comment on above: Performed By: #### A MM #### [facility] [address] [place] [address] Dr. Nilay Gibbs DRUG SCREEN RAPID (URINE)on 12-06-2021 AMP Negative Normal NEGATIVE [facility] Comment on above: Performed By: #### D RUGRPD #### [facility] [address] [place] [address] Dr. Nilay Gibbs BAR Negative Normal NEGATIVE [facility] Comment on above: Performed By: #### D RUGRPD #### [facility] [address] [place] [address] Dr. Nilay Gibbs BUP Negative Normal NEGATIVE [facility] Comment on above: Performed By: #### D RUGRPD #### [facility] [address] [place] [address] Dr. Nilay Gibbs BZO Positive Abnormal NEGATIVE [facility] Comment on above: Performed By: #### D RUGRPD #### [facility] [address] [place] [address] Dr. Nilay Gibbs ROQUE Negative Normal NEGATIVE [facility] Comment on above: Performed By: #### D RUGRPD #### [facility] [address] [place] [address] Dr. Nilay Gibbs CUT-OFFS SEE BELOW Normal [facility] Comment on above: Result Comment: AMP (Amphetamine): 500ng/mL, BAR (Barbituates): 200 ng/mL, BZO (Benzodiazepines): 150 ng/mL, BUP (Buprenorphine): 10 ng/mL, ROQUE (Cocaine): 150 ng/mL, mAMP (Methamphetamine): 500 ng/mL, MTD (Methadone): 200 ng/mL, OPI (Opiates): 100 ng/mL, OXY (Oxycodone): 100 ng/mL, PCP (Phencyclidine): 25 ng/mL, PPX (Propoxyphene): 300 ng/mL, THC (Cannabinoids): 50 ng/mL, TCA (Trycyclic Antidepressants): 300 ng/mL Performed By: #### D RUGRPD #### [facility] [address] [place] [address] Dr. Nilay Gibbs DRUG CUT HEADER DRUG CLASS TEST SYST EM CUT-OFF CONCENTRATIONS ARE FOLLOWS: Normal [facility] Comment on above: Performed By: #### D RUGRPD #### [facility] [address] [place] [address] Dr. Nilay Gibbs mAMP Negative Normal NEGATIVE [facility] Comment on above: Performed By: #### D RUGRPD #### [facility] [address] [place] [address] Dr. Nilay Gibbs MTD Negative Normal NEGATIVE [facility] Comment on above: Performed By: #### D RUGRPD #### [facility] [address] [place] [address] Dr. Nilay Gibbs OPI Negative Normal NEGATIVE [facility] Comment on above: Performed By: #### D RUGRPD #### [facility] [address] [place] [address] Dr. Nilay Gibbs OXY Negative Normal NEGATIVE [facility] Comment on above: Performed By: #### D RUGRPD #### [facility] [address] [place] [address] Dr. Nilay Gibbs PCP Negative Normal NEGATIVE [facility] Comment on above: Performed By: #### D RUGRPD #### [facility] [address] [place], [place] [id number] Dr. iNlay Gibbs PPX Negative Normal NEGATIVE [facility] Comment on above: Performed By: #### D RUGRPD #### [facility] [address] [place] [address] Dr. Nilay Gibbs TCA Negative Normal NEGATIVE [facility] Comment on above: Performed By: #### D RUGRPD #### [facility] [address] [place] [address] Dr. Nilay Gibbs THC Negative Normal NEGATIVE [facility] Comment on above: Performed By: #### D RUGRPD #### [facility] [address] [place] [address] Dr. Nilay Gibbs ETHANOL (BLD ALC)on 12-07-19 22 ALC NOTE NOTE: 80 mg/dl is th e legal limit for a blood alcohol level Normal [facility] Comment on above: Performed By: #### C MP #### [facility] [address] [place] [address] Dr. Nilay Gibbs Ethanol [Mass/Vol] 336 mg/dL Normal [facility] Comment on above: Performed By: #### C MP #### [facility] [address] [place] [address] Dr. Nilay Gibbs PROF 14(COMP METB)on 022 Albumin [Mass/Vol] 4.2 g/dL Normal 3.4-5.0 [facility] Comment on above: Performed By: #### C MP #### [facility] [address] [place] [address] Dr. Nilay Gibbs Albumin/Globulin [Mass ratio] 1.3 {ratio} Normal [facility] Comment on above: Performed By: #### C MP #### [facility] [address] [place] [address] Dr. Nilay Gibbs ALP [Catalytic activity/Vol] 104 U/L Normal 46-116 [facility] Comment on above: Performed By: #### C MP #### [facility] [address] [place] [address] Dr. Nilay Gibbs ALT [Catalytic activity/Vol] 41 U/L Normal 16-63 [facility] Comment on above: Performed By: #### C MP #### [facility] [address] [address] [address] Nilay Gibbs Anion gap [Moles/Vol] 11.5 mmol/L Normal [facility] Comment on above: Performed By: #### C MP #### [facility] [address] [address] [address] Nilay Gibbs AST [Catalytic activity/Vol] 37 U/L Normal 15-37 [facility] Comment on above: Performed By: #### C MP #### [facility] [address] [address] [address] Nilay Gibbs Bilirubin [Mass/Vol] 0.2 mg/dL Normal 0.2-1.0 [facility] Comment on above: Performed By: #### C MP #### [facility] [address] [address] [address] Nilay Gibbs Calcium [Mass/Vol] 8.6 mg/dL Normal 8.5-10.1 [facility] Comment on above: Performed By: #### C MP #### [facility] [address] [address] [address] Nilay Gibbs Chloride [Moles/Vol] 97 mmol/L Critically low 98-107 [facility] Comment on above: Performed By: #### C MP #### [facility] [address] [address] [address] Nilay Gibbs CO2 [Moles/Vol] 26.0 mmol/L Normal 21.0-32.0 [facility] Comment on above: Performed By: #### C MP #### [facility] [address] [address] [address] Nilay Gibbs Creatinine [Mass/Vol] 1.47 mg/dL Critically high 0.70-1.30 [facility] Comment on above: Performed By: #### C MP #### [facility] [address] [address] [address] Nilay Gbibs EGFR-AF ENGLISH >60 Normal >=60 [facility] Comment on above: Performed By: #### C MP #### [facility] [address] [address] [address] Nilay Gibbs EGFR-NON AF ENGLISH 56 mL/min/1.73m2 Critically low >=60 [facility] Comment on above: Performed By: #### C MP #### [facility] [address] [address] [address] Nilay Gibbs Globulin (S) [Mass/Vol] 3.2 g/dL Normal [facility] Comment on above: Performed By: #### C MP #### [facility] [address] [address] [address] Nilay Gibbs Glucose [Mass/Vol] 117 mg/dL Critically high 74-106 [facility] Comment on above: Performed By: #### C MP #### [facility] [address] [address] [address] Nilay Gibbs Potassium [Moles/Vol] 3.5 mmol/L Normal 3.5-5.1 [facility] Comment on above: Performed By: #### C MP #### [facility] [address] [address] [address] Nilay Gibbs Protein [Mass/Vol] 7.4 g/dL Normal 6.4-8.2 [facility] Comment on above: Performed By: #### C MP #### [facility] [address] [address] [address] Nilay Gibbs Sodium [Moles/Vol] 131 mmol/L Critically low 136-145 [facility] Comment on above: Performed By: #### C MP #### [facility] [address] [address] [address] Nilay Gibbs Urea nitrogen [Mass/Vol] 14.0 mg/dL Normal 7.0-18.0 [facility] Comment on above: Performed By: #### C MP #### [facility] [address] [address] [address] Nilay Gibbs Urea nitrogen/Creatinine [Mass ratio] 9.5 mg/mg Normal [facility] Comment on above: Performed By: #### C MP #### [facility] [address] [address] [address] Nilay Gibbs SALICYLATEon 12-06-2021 SALICYLATE <2.8 Normal <=19.9 [facility] Comment on above: Performed By: #### A MM #### [facility] [address] [address] [address] Nilay Gibbs MRI Shoulder w/o Lefton [...] by Stephen Ware on 11/11/2021 0955 Normal [facility] [employer] Activated partial thrombopla stin time (aPTT) in platelet poor plasma by coagulation aOrdered By: Kristal Goldberg on 09-27-2021 aPTT Coag (PPP) [Time] 34.7 s 25.1-36.5 [facility] Albumin [Mass/volume] in Ser um or PlasmaOrdered By: Kristal Goldberg on 09-27-2021 Albumin [Mass/Vol] 4.1 g/dL 3.2-5.5 [facility] Basophils Auto (Bld) [#/Vol] Ordered By: Kristal Goldberg on 09-27-2021 Basophils (Bld) [#/Vol] 0.0 10*3/uL 0.0-0.2 [facility] Basophils/100 WBC Auto (Bld) Ordered By: Kristal Goldberg on 09-27-2021 Basophils/100 WBC (Bld) 0.3 % . [facility] Bilirubin Auto test strip Ql (U)Ordered By: Kristal Goldberg on 09-27-2021 Bilirubin Ql (U) Negative Negative [facility] Blood hemoglobin measurement (mass/volume)Ordered By: Kristal Goldberg on 09-27-2021 Hemoglobin (Bld) [Mass/Vol] 13.6 g/dL 13.0-17.0 [facility] Blood leukocytes automated c ount (number/volume)Ordered By: Kristal Goldberg on 09-27-2021 WBC (Bld) [#/Vol] 5.7 10*3/uL 4.5-11.0 [facility] CBC AUTO DIFFon 09-27-2021 BASO # 0.0 103/ul Normal 0.0-0.1 [facility] Comment on above: Performed By: #### A MM #### [facility] [address] [place] [address] Dr. Nilay Gibbs Basophils/100 WBC (Bld) 0.5 % Normal 0.2-2.0 [facility] Comment on above: Performed By: #### A MM #### [facility] [address] [place] [address] Dr. Nilay Gibbs EO # 0.1 103/ul Normal 0.0-0.7 [facility] Comment on above: Performed By: #### A MM #### [facility] [address] [place] [address] Dr. Nilay Gibbs Eosinophils/100 WBC (Bld) 1.6 % Normal 0.9-7.0 [facility] Comment on above: Performed By: #### A MM #### [facility] [address] [place] [address] Dr. Nilay Gibbs Erythrocyte distribution width (RBC) [Ratio] 14.0 % Normal 11.0-15.0 [facility] Comment on above: Performed By: #### A MM #### [facility] [address] [place] [address] Dr. Nilay Gibbs Hematocrit (Bld) [Volume fraction] 40.2 % Critically low 42.0-54.0 [facility] Comment on above: Performed By: #### A MM #### [facility] [address] [place] [address] Dr. Nilay Gibbs Hemoglobin (Bld) [Mass/Vol] 13.7 g/dL Critically low 14.0-18.0 [facility] Comment on above: Performed By: #### A MM #### [facility] [address] [place] [address] Dr. Nilay Gibbs IG # 0.01 10e3/ul Normal 0.00-0.03 [facility] Comment on above: Performed By: #### A MM #### [facility] [address] [place] [address] Dr. Nilay Gibbs IG % 0.2 % Normal 0.0-0.5 [facility] Comment on above: Performed By: #### A MM #### [facility] [address] [place] [address] Dr. Nilay Gibbs LYMPH # 2.1 103/ul Normal 1.2-3.8 [facility] Comment on above: Performed By: #### A MM #### [facility] [address] [place] [address] Dr. Nilay Gibbs Lymphocytes/100 WBC (Bld) 37.1 % Normal 20.5-60.0 [facility] Comment on above: Performed By: #### A MM #### [facility] [address] [place] [address] Dr. Nilay Gibbs MANUAL DIFF REQ NO Normal [facility] Comment on above: Performed By: #### A MM #### [facility] [address] [place] [address] Dr. Nilay Gibbs MCH (RBC) [Entitic mass] 30.1 pg Normal 25.9-34.0 [facility] Comment on above: Performed By: #### A MM #### [facility] [address] [address] [address] Nilay Gibbs MCHC (RBC) [Mass/Vol] 34.1 g/dL Normal 29.9-35.2 [facility] Comment on above: Performed By: #### A MM #### [facility] [address] [address] [address] Nilay Gibbs MCV (RBC) [Entitic vol] 88.4 fL Normal 80.0-94.0 [facility] Comment on above: Performed By: #### A MM #### [facility] [address] [place] [address] Dr. Nilay Gibbs MONO # 0.4 103/ul Normal 0.3-0.8 [facility] Comment on above: Performed By: #### A MM #### [facility] [address] [place] [address] Dr. Nilay Gibbs Monocytes/100 WBC (Bld) 7.2 % Normal 1.7-12.0 [facility] Comment on above: Performed By: #### A MM #### [facility] [address] [place] [address] Dr. Nilay Gibbs NEUT # 3.1 103/ul Normal 1.4-6.5 [facility] Comment on above: Performed By: #### A MM #### [facility] [address] [place] [address] Dr. Nilay Gibbs Neutrophils/100 WBC (Bld) 53.4 % Normal 43.0-75.0 [facility] Comment on above: Performed By: #### A MM #### [facility] [address] [place] [address] Dr. Nilay Gibbs Platelet mean volume (Bld) [Entitic vol] 10.3 fL Normal 9.5-13.5 [facility] Comment on above: Performed By: #### A MM #### [facility] [address] [place] [address] Dr. Nilay Gibbs PLT 254 103/ul Normal 150-450 [facility] Comment on above: Performed By: #### A MM #### [facility] [address] [place], [place] [address] Dr. Nilay Gibbs RBC 4.55 106/ul Critically low 4.70-6.10 [facility] Comment on above: Performed By: #### A MM #### [facility] [address] [place], [place] [address] Dr. Nilay Gibbs WBC 5.7 103/ul Normal 4.0-11.0 [facility] Comment on above: Performed By: #### A MM #### [facility] [address] [place], [place] [address] HEAD WO CONon 09-27-2021 CT [...] RUFINA MARIN Date: 2021-09-27 10:27 Normal [facility] CTA HEAD WO W CONon 09-28-19 22 CTA HEAD WO W CON CTA HEAD WITH CONTRA ST: 09/27/2021 9:35 [...] by: NEL KING Date: 2021-09-27 12:19 Normal [facility] CTA NECK WO W CONon [...] NEL KING Date: 2021-09-27 12:06 Normal [facility] Creatine kinase [Enzymatic a ctivity/volume] in Serum or PlasmaOrdered By: Kristal Goldberg on 09-27-2021 CK [Catalytic activity/Vol] 181 U/L 22-269 [facility] Creatinine and Glomerular fi ltration rate.predicted panel (S/P/Bld)Ordered By: Kristal Goldberg on 09-27-2021 Creatinine [Mass/Vol] 1.36 mg/dL 0.64-1.27 [facility] Eosinophils Auto (Bld) [#/Vo l]Ordered By: Kristal Goldberg on 09-27-2021 Eosinophils (Bld) [#/Vol] 0.1 10*3/uL 0.0-0.45 [facility] Eosinophils/100 WBC Auto (Bl d)Ordered By: Kristal Goldberg on 09-27-2021 Eosinophils/100 WBC (Bld) 1.2 % . [facility] Erythrocyte distribution wid th Auto (RBC) [Ratio]Ordered By: Kristal Goldberg on 09-27-2021 Erythrocyte distribution width (RBC) [Ratio] 14.5 % 12.0-14.8 [facility] Estimated glomerular filtrat ion rate (GFR) non- AmericanOrdered By: Kristal Goldberg on 09-27-2021 GFR/1.73 sq M.predicted among non-blacks MDRD (S/P/Bld) [Vol rate/Area] > 60 mL/Min [facility] Globulin Calc (S) [Mass/Vol] Ordered By: Kristal Goldberg on 09-27-2021 Globulin (S) [Mass/Vol] 2.4 g/dL [facility] Hematocrit Auto (Bld) [Volum e fraction]Ordered By: Kristal Goldberg on 09-27-2021 Hematocrit (Bld) [Volume fraction] 40.8 % 38.8-50.0 [facility] Ketones Auto test strip (U) [Mass/Vol]Ordered By: Kristal Goldberg on 09-27-2021 Ketones (U) [Mass/Vol] Negative Negative [facility] - CoagulationOrde red By: Kristal Goldberg on 09-27-2021 PT Coag (PPP) [Time] 11.8 s 9.0-12.9 [facility] - Hematology and Cell countsOrdered By: Kristal Goldberg on 09-27-2021 Nucleated RBC/100 WBC (Bld) [Ratio] 0.0 % 0-0.5 [facility] Lymphocytes Auto (Bld) [#/Vo l]Ordered By: Kristal Goldberg on 09-27-2021 Lymphocytes (Bld) [#/Vol] 1.8 10*3/uL 1.00-4.8 [facility] Lymphocytes/100 WBC Auto (Bl d)Ordered By: Kristal Goldberg on 09-27-2021 Lymphocytes/100 WBC (Bld) 31.2 % . [facility] MCH Auto (RBC) [Entitic mass ]Ordered By: Kristal Goldberg on 09-27-2021 MCH (RBC) [Entitic mass] 30.1 pg 27.5-35.2 [facility] MCHC Auto (RBC) [Mass/Vol]Or dered By: Kristal Goldberg on 09-27-2021 MCHC (RBC) [Mass/Vol] 33.4 g/dL 32.5-35.6 [facility] MCV Auto (RBC) [Entitic vol] Ordered By: Kristal Goldberg on 09-27-2021 MCV (RBC) [Entitic vol] 90.3 fL 83.5-101 [facility] Monocytes Auto (Bld) [#/Vol] Ordered By: Kristal Goldberg on 09-27-2021 Monocytes (Bld) [#/Vol] 0.3 10*3/uL 0.0-0.8 [facility] Monocytes/100 WBC Auto (Bld) Ordered By: Kristal Goldberg on 09-27-2021 Monocytes/100 WBC (Bld) 6.0 % . [facility] Neutrophils Auto (Bld) [#/Vo l]Ordered By: Kristal Goldberg on 09-27-2021 Neutrophils (Bld) [#/Vol] 3.5 10*3/uL 1.8-7.7 [facility] Neutrophils/100 WBC Auto (Bl d)Ordered By: Kristal Goldberg on 09-27-2021 Neutrophils/100 WBC (Bld) 61.3 % . [facility] No Panel InformationOrdered By: Kristal Goldberg on 09-27-2021 Estimated GFR () > 60 mL/Min [facility] Comment on above: GFR estimated refere nce range: According to KDOQI guidelines, <60 ml/min/1.73m2 is sufficient to diagnose a patient with chronic kidney disease. Pharmacy Creatinine Clearance (Chem 94.06 [facility] PROF CHEM 8 ([facility] METB)on Anion gap [Moles/Vol] 10.0 mmol/L Normal [facility] Comment on above: Performed By: #### C MP #### [facility] [address] [address] [address] Nilay Gibbs Calcium [Mass/Vol] 9.4 mg/dL Normal 8.5-10.1 [facility] Comment on above: Performed By: #### C MP #### [facility] [address] [address] [address] Nilay Gibbs Chloride [Moles/Vol] 103 mmol/L Normal 98-107 [facility] Comment on above: Performed By: #### C MP #### [facility] [address] [address] [address] Nilay Gibbs CO2 [Moles/Vol] 27.6 mmol/L Normal 21.0-32.0 [facility] Comment on above: Performed By: #### C MP #### [facility] [address] [address] [address] Nilay Gibbs Creatinine [Mass/Vol] 1.39 mg/dL Critically high 0.70-1.30 [facility] Comment on above: Performed By: #### C MP #### [facility] [address] [address] [address] Nilay Gibbs EGFR-AF ENGLISH >60 Normal >=[address] [facility] Comment on above: Performed By: #### C MP #### [facility] [address] [address] [address] Nilay Gibbs EGFR-NON AF ENGLISH 60 mL/min/1.73m2 Normal >=60 [facility] Comment on above: Performed By: #### C MP #### [facility] [address] [address] [address] Nilay Gibbs Glucose [Mass/Vol] 115 mg/dL Critically high 74-106 [facility] Comment on above: Performed By: #### C MP #### [facility] [address] [place] [address] Dr. Nilay Gibbs Potassium [Moles/Vol] 3.6 mmol/L Normal 3.5-5.1 [facility] Comment on above: Performed By: #### C MP #### [facility] [address] [address] [address] Nilay Gibbs Sodium [Moles/Vol] 137 mmol/L Normal 136-145 [facility] Comment on above: Performed By: #### C MP #### [facility] [address] [place] [address] Dr. Nilay Gibbs Urea nitrogen [Mass/Vol] 17.0 mg/dL Normal 7.0-18.0 [facility] Comment on above: Performed By: #### C MP #### [facility] [address] [address] [address] Nilay Gibbs Urea nitrogen/Creatinine [Mass ratio] 12.2 mg/mg Normal [facility] Comment on above: Performed By: #### C MP #### [facility] [address] [address] [address] Nilay Gibbs PROTIMEon 09-27-2021 INR Coag (PPP) [Relative time] 0.99 {INR} Normal [facility] Comment on above: Performed By: #### P T, PTT #### [facility] [address] [address] [address] Nilay Gibbs INR GUIDELINES SEE BELOW Normal [facility] Comment on above: Result Comment: PETRONA RED INR: 2.0 - 3.0 CONDITIONS NOT LISTED BELOW 2.5 - 3.5 FOR PROSTHETIC HEART VALVE REPLACEMENT 2.5 - 3.5 RECURRENT THROMBOSIS Performed By: #### P T, PTT #### [facility] [address] [address] [address] Nilay Gibbs PT Coag (PPP) [Time] 10.7 s Normal 9.0-11.6 [facility] Comment on above: Performed By: #### P T, PTT #### [facility] [address] [address] [address] Nilay Gibbs PTTon 09-27-2021 aPTT Coag (Bld) [Time] 29.1 s Normal 22.3-36.2 [facility] Comment on above: Performed By: #### P T, PTT #### [facility] [address] [address] [address] Nilay Gibbs Platelet mean volume Auto (B ld) [Entitic vol]Ordered By: Kristal Goldberg on 09-27-2021 Platelet mean volume (Bld) [Entitic vol] 8.7 fL 6.6-10.1 [facility] Platelet poor plasma interna tional normalized ratio (INR) by coagulation assay (relatOrdered By: Kristal Goldberg on 09-27-2021 INR Coag (PPP) [Relative time] 1.1 {INR} [facility] Comment on above: INR Therapeutic Rang e [...] 09-27-2021 Platelets (Bld) [#/Vol] 240 10*3/uL 150-450 [facility] Protein Auto test strip (U) [Mass/Vol]Ordered By: Kristla Goldberg on 09-27-2021 Protein (U) [Mass/Vol] Negative Negative [facility] Protein [Mass/volume] in Ser um or PlasmaOrdered By: Kristal Goldberg on 09-27-2021 Protein [Mass/Vol] 6.5 g/dL 6.1-7.9 [facility] RBC Auto (Bld) [#/Vol]Ordere d By: Kristal Goldberg on 09-27-2021 RBC (Bld) [#/Vol] 4.52 10*6/uL 3.90-5.60 [facility] Serum or plasma alanine marquez otransferase measurement without P-5'-P (enzymatic activiOrdered By: Kristal Goldberg on 09-27-2021 ALT No additional P-5'-P [Catalytic activity/Vol] 22 U/L 10-60 [facility] Serum or plasma albumin/glob ulin mass ratioOrdered By: Kristal Goldberg on 09-27-2021 Albumin/Globulin [Mass ratio] 1.7 {ratio} [facility] Serum or plasma alkaline kimi sphatase measurement (enzymatic activity/volume)Ordered By: Kristal Goldberg on 09-27-2021 ALP [Catalytic activity/Vol] 72 U/L 32-92 [facility] Serum or plasma aspartate am inotransferase measurement (enzymatic activity/volume)Ordered By: Kristal Goldberg on 09-27-2021 AST [Catalytic activity/Vol] 24 U/L 10-42 [facility] Serum or plasma calcium isabel urement (mass/volume)Ordered By: Kristal Goldberg on 09-27-2021 Calcium [Mass/Vol] 9.6 mg/dL 8.2-10.2 [facility] Serum or plasma chloride airam surement (moles/volume)Ordered By: Kristal Goldberg on 09-27-2021 Chloride [Moles/Vol] 98 mmol/L 95-114 [facility] Serum or plasma creatine kin ase MB (CKMB)/total creatine kinase (CK) ratio by calculaOrdered By: Kristal Goldberg on 09-27-2021 CK.MB Calc [Catalytic fraction] 1.7 % 0.00-2.50 [facility] Serum or plasma creatine kin ase MB measurement (mass/volume)Ordered By: Kristal Goldberg on 09-27-2021 CK.MB [Mass/Vol] 3.1 ng/mL 0.6-6.3 [facility] Serum or plasma glucose isabel urement (mass/volume)Ordered By: Kristal Goldberg on 09-27-2021 Glucose [Mass/Vol] 94 mg/dL 70-100 [facility] Comment on above: ADA recommended refe rence [...] on 09-27-2021 Potassium [Moles/Vol] 3.9 mmol/L 3.5-5.1 [facility] Serum or plasma sodium measu rement (moles/volume)Ordered By: Kristal Goldberg on 09-27-2021 Sodium [Moles/Vol] 135 mmol/L 136-146 [facility] Serum or plasma total biliru bin measurement (mass/volume)Ordered By: Kristal Goldberg on 09-27-2021 Bilirubin [Mass/Vol] 0.8 mg/dL 0.3-1.2 [facility] Serum or plasma total carbon dioxide measurement (moles/volume)Ordered By: Kristal Goldberg on 09-27-2021 CO2 [Moles/Vol] 24.8 mmol/L 22.0-30.0 [facility] Serum or plasma urea nitroge n measurement (mass/volume)Ordered By: Kristal Goldberg on 09-27-2021 Urea nitrogen [Mass/Vol] 13 mg/dL 9- [facility] TROPONIN, HIGH SENSITIVITYon 09-27-2021 HSTROP 4.5 pg/mL Normal 4.0-76.1 [facility] Comment on above: Result Comment: CUT- OFF POINTS HAVE BEEN ESTABLISHED BASED ON THE FOURTH UNIVERSAL DEFINITIONS OF MYOCARDIAL INFARCTION. THE UPPER REFERENCE LIMIT (URL) OF TROPONIN, DEFINED THE 99TH PERCENTILE OF cTnI DISTRIBUTION IN A REFERENCE POPULATION, HAS BEEN CONFIRMED THE DECISION THRESHOLD FOR [place] DIAGNOSIS. Performed By: #### C MP #### [facility] [address] [place] [address] Dr. Nilay Gibbs Troponin I.cardiac [Mass/vol ume] in Serum or Plasma by High sensitivity methodOrdered By: Kristal Goldberg on 09-27-2021 Troponin I.cardiac High sensitivity method [Mass/Vol] < 3 pg/mL 0-20 [facility] Urine appearanceOrdered By: Kristal Goldberg on 09-27-2021 Appearance (U) Clear Clear [facility] Urine colorOrdered By: Aurora Goldberg on 09-27-2021 Color (U) Yellow Yellow [facility] Urine glucose measurement by automated test strip (mass/volume)Ordered By: Kristal Goldberg on 09-27-2021 Glucose Auto test strip (U) [Mass/Vol] Normal mg/dL Normal [facility] Urine hemoglobin detection b y automated test stripOrdered By: Kristal Goldberg on 09-27-2021 Hemoglobin Auto test strip Ql (U) Negative Negative [facility] Urine leukocyte esterase det ection by automated test stripOrdered By: Kristal Goldberg on 09-27-2021 Leukocyte esterase Auto test strip Ql (U) Negative Negative [facility] Urine nitrite detection by a utomated test stripOrdered By: Kristal Goldberg on 09-27-2021 Nitrite Auto test strip Ql (U) Negative Negative [facility] Urobilinogen Auto test strip (U) [Mass/Vol]Ordered By: Kristal Goldberg on 09-27-2021 Urobilinogen (U) [Mass/Vol] Normal mg/dL Normal [facility] pH Auto test strip (U)Ordere d By: Kristal Goldberg on 09-27-2021 pH (U) 1.005 [pH] 1.001-1.030 [facility] pH (U) 5.5 [pH] 5.0-9.0 [facility] XR SHOULDER 2V AP/TRUE AP LT on [...] Mild glenohumeral narrowing IMPRESSION: Mild glenohumeral arthrosis Hand Ornament Maker: ADELA Transcribe Date/Time: Nov 29 2020 10:37A Dictated by : ANNE VALDEZ MD This examination was interpreted and the report reviewed and electronically signed by: ANNE VALDEZ MD on Nov 29 2020 10:37AM EST [id number] [facility] US KIDNEY/BLADDERon 08-20-19 US KIDNEY/BLADDER * * *Final Report* * * DATE OF EXAM: Aug 19 2020 12:47PM U 1055 - US KIDNEY/BLADDER / PROCEDURE REASON: [...] NORMAL SONOGRAPHIC APPEARANCE OF KIDNEYS AND BLADDER. Hand Ornament Maker: ADELA Transcribe Date/Time: Aug 19 2020 12:49P Dictated by : FLORENTIN PATEL MD This examination was interpreted and the report reviewed and electronically signed by: FLORENTIN PATEL MD on Aug 19 2020 12:49PM EST [id number] [facility] XR HAND 3V PA/LAT/OBL BILon 04-02-2020 XR [...] than left hand and superimposed degenerative change. Hand Ornament Maker: PSCB Transcribe Date/Time: Apr 02 2020 10:18A Dictated by : EDDA PAUL MD This examination was interpreted and the report reviewed and electronically signed by: EDDA PAUL MD on Apr 02 2020 10:25AM EST [id number] [facility] CT LUMBAR SPINE WO CONTRASTo n 07-12-2018 [...] Mike Felipe MD 07/12/18 Final result Normal [facility] CT THORACIC SPINE WO CONTRAS Ton [...] Mike Felipe MD 07/12/18 Final result Normal [facility] Vital Signs Date Time Vital Sign Value Performing Clinician Florentin quinn 01-01-2022 11:34-0400 Body weight 99.79 kg Delmy Boyle MD Work Phone: 01-01-2022 11:34-0400 Diastolic blood pressure 65 mm[Hg] Delmy Boyle MD Work Phone: 01-01-2022 11:34-0400 Heart rate 65 /min Delmy Boyle MD Work Phone: 01-01-2022 11:34-0400 Systolic blood pressure 102 mm[Hg] Delmy Boyle MD Work Phone: 12-10-2021 15:30-0400 Diastolic blood pressure 71 mm[Hg] MD Leydi Aceves Work Phone: [facility] 12-10-2021 15:30-0400 Heart rate 70 /min MD Leydi Aceves Work Phone: [facility] 12-10-2021 15:30-0400 Respiratory rate 16 /min MD Leydi Aceves Work Phone: [facility] 12-10-2021 15:30-0400 SaO2% (BldA) [Mass fraction] 98 % MD Leydi Aceves Work Phone: [facility] 12-10-2021 15:30-0400 Systolic blood pressure 113 mm[Hg] MD Leydi Aceves Work Phone: [facility] 12-10-2021 07:30-0400 Body temperature 98 [degF] MD Leydi Aceves Work Phone: [facility] 12-08-2021 15:45-0400 Body height 190.5 cm MD Leydi Aceves Work Phone: [facility] 12-08-2021 08:56-0400 Body weight 99.79 kg MD Leydi Aceves Work Phone: [facility] 09-27-2021 21:38-0400 Heart rate 68 /min MD Leydi Aceves Work Phone: [facility] 09-27-2021 21:30-0400 Diastolic blood pressure 79 mm[Hg] MD Leydi Aceves Work Phone: [facility] 09-27-2021 21:30-0400 Respiratory rate 20 /min MD Leydi Aceves Work Phone: [facility] 09-27-2021 21:30-0400 SaO2% (BldA) [Mass fraction] 100 % MD Leydi Aceves Work Phone: [facility] 09-27-2021 21:30-0400 Systolic blood pressure 135 mm[Hg] MD Leydi Aceves Work Phone: [facility] 09-27-2021 18:31-0400 Body height 190.5 cm MD Leydi Aceves Work Phone: [facility] 09-27-2021 18:31-0400 Body temperature 98 [degF] MD Leydi Aceves Work Phone: [facility] 09-27-2021 18:31-0400 Body weight 99.79 kg MD Leydi Aceves Work Phone: [facility] Encounters Encounter Date Encounter Type Care Provider Facility Start: 03-04-2023 End: 03-04-2023 ambulatory DELMY BOYLE Facility:[facility] Start: 02-24-2023 End: 02-24-2023 Emergency department patient visit Ladi Huber [facility] Start: 02-19-2023 End: 02-20-2023 [facility] Start: 01-12-2023 End: 01-12-2023 ambulatory MIRI REES Not Available Start: 11-13-2022 ambulatory Delmy newton MD Work Phone: Rheumatology Comment on above: Prednisone Start: 11-13-2022 E-mail encounter fro m caregiver Delmy Boyle MD Work Phone: CONSTANZA Valente [facility] Start: 11-13-2022 Telephone encounter Delmy luna MD Work Phone: [facility] [place] Comment on above: Patient Request Start: 11-10-2022 ambulatory Nicola Castellon acility:[facility] Start: 08-14-2022 End: 08-14-2022 ambulatory DELMY BOYLE Facility:[facility] Start: 08-12-2022 End: 08-13-2022 ambulatory LEYDI ACEVES Facility: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 Facility:[facility] Start: 09-27-2021 End: 09-27-2021 Emergency department patient visit MD Leydi Aceves Work Phone: [facility] Start: 09-27-2021 End: 09-27-2021 ambulatory ZHAO MAURER . 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 Start: 07-12-2018 End: 07-13-2018 Emergency department patient visit LEYDI ACEVES [facility] Procedures Date Procedure Procedure Detail Performing Clinician Start: 08-19-2020 Adult depression screening assessment Delmy Boyle MD Work Phone: Start: 07-12-2018 Ct lumbar spine w/o contrast material LEYDI ACEVES Start: 07-12-2018 Ct thoracic spine w/ o contrast material LEYDI ACEVES Plan of Treatment Date Care Activity Detail Author Start: 06-01-2026 Urine microalbumin profile Start: 08-13-2023 Serum Creatinine Serum Creatinine Cl [facility] Start: 01-01-2023 BP CONTROLLED (<130/80) BP CON TROLLED (<130/80) Start: 10-30-2022 Influenza vaccination [facility] Start: 07-13-2022 End: 09-12-2022 Alanine aminotransferase [Enzymatic activity/volume] in Serum or Plasma ALT/SGPT Lab 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 Encounter for long-term (current) use of medications Expected: 07/13/2022 (Approximate), Expires: 09/12/2022 [facility] Work Phone: Comment on above: Expected: 07/13/2022 (Approximate), Expires: 09/12/2022 Start: 07-13-2022 End: 09-12-2022 Albumin [Mass/volume] in Serum or Plasma ALBUMIN BLD Lab 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 Encounter for long-term (current) use of medications Expected: 07/13/2022 (Approximate), Expires: 09/12/2022 [facility] Work Phone: Comment on above: Expected: 07/13/2022 (Approximate), Expires: 09/12/2022 Start: 07-13-2022 End: 09-12-2022 Aspartate aminotransferase [Enzymatic activity/volume] in Serum or Plasma AST/SGOT BLD Lab 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 Encounter for long-term (current) use of medications Expected: 07/13/2022 (Approximate), Expires: 09/12/2022 [facility] Work Phone: Comment on above: Expected: 07/13/2022 (Approximate), Expires: 09/12/2022 Start: 07-13-2022 End: 09-12-2022 C reactive protein [Mass/volume] in Serum or Plasma C-REACTIVE PROTEIN (CRP) Lab 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 Encounter for long-term (current) use of medications Expected: 07/13/2022 (Approximate), Expires: 09/12/2022 [facility] Work Phone: Comment on above: Expected: 07/13/2022 (Approximate), Expires: 09/12/2022 Start: 07-13-2022 End: 09-12-2022 CBC W Auto Differential panel - Blood CBC + DIFF Lab 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 Encounter for long-term (current) use of medications Expected: 07/13/2022 (Approximate), Expires: 09/12/2022 [facility] Work Phone: Comment on above: Expected: 07/13/2022 (Approximate), Expires: 09/12/2022 Start: 07-13-2022 End: 09-12-2022 CREATININE BLD CREATININE BLD Lab 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 Encounter for long-term (current) use of medications Expected: 07/13/2022 (Approximate), Expires: 09/12/2022 [facility] Work Phone: Comment on above: Expected: 07/13/2022 (Approximate), Expires: 09/12/2022 Start: 07-13-2022 End: 09-12-2022 Erythrocyte sedimentation rate SED RATE WESTERGREN Lab Routine Idiopathic chronic gout of multiple sites with tops Encounter for long-term (current) use of medications Expected: 07/13/2022 (Approximate), Expires: 09/12/2022 [facility] Work Phone: Comment on above: Expected: 07/13/2022 (Approximate), Expires: 09/12/2022 Start: 07-13-2022 End: 09-12-2022 Urate [Mass/volume] in Serum or Plasma URIC ACID BLOOD Lab Routine Idiopathic chronic gout of multiple sites with tops Encounter for long-term (current) use of medications Expected: 07/13/2022 (Approximate), Expires: 09/12/2022 [facility] Work Phone: Comment on above: Expected: 07/13/2022 (Approximate), Expires: 09/12/2022 Start: 04-23-2022 SERUM CREATININE SERUM CREATININE Cl [facility] Start: 03-01-2022 DEPRESSION ASSESSMENT DEPRESSION ASS ESSMENT Start: 12-10-2021 [facility] Start: 12-07-2021 Hospital admission [facility] Start: 12-07-2021 Referral to Answering Service Agent [facility] Start: 10-30-2021 Influenza vaccination [facility] Start: 08-19-2021 Adult depression scr eening assessment DEPRESSION SCREENING Start: 03-01-2021 DEPRESSION ASSESSMENT DEPRESSION ASS ESSMENT Start: 02-26-2008 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 DISEASE VISIT ANNUAL PCP TEAM CHRONIC DISEASE VISIT Start: 02-26-2008 BP CONTROLLED (<130/80) BP CON TROLLED (<130/80) Start: 02-26-2008 HIV SCREENING HIV SCREENING [facility] Start: 1995 COVID-19 VACCINE (#1) COVID-19 VACCI NE (#1) Start: 1990 COVID-19 VACCINE (#1) COVID-19 VACCI NE (#1) Start: 1990 HEPATITIS B (1 of 3 - 3-dose series) HEPATITIS B (1 of 3 - 3-dose series) Start: 1990 Hepatitis B Vaccine (1 of 3 - 3-dose series) Hepatitis B Vaccine (1 of 3 - 3-dose series) Patient Education [facility] Work Phone: Patient referral [facility] Work Phone: [facility] Immunizations Immunization Date Immunization Notes Care Provider Yanelis paz 10-13-2018 influenza virus vacc ine, unspecified formulation Delmy Boyle MD Work Phone: Payers Date Payer Category Payer Self-pay 2021 Medicaid [employer] [id number] 2021-Present [phone] [address] [place] [address] Medicaid [id number] 2021 Medicaid [id number] 2018 Unknown [id number] 1990 Unknown [id number] 1990 Unknown [id number] 1990 Unknown [id number] 1990 Unknown [id number] 1990 Unknown [id number] [id number] 1990 Unknown [id number] [id number] 1990 Unknown [id number] [id number] 1990 Unknown [id number] [id number] 1990 Unknown [id number] [id number] 1990 Unknown [id number] [id number] 1990 Unknown [id number] [id number] 1990 Unknown [id number] [id number] 1990 Unknown [id number] 1959 Medicaid [id number] 1959 Unknown [id number] Unknown [facility] [id number] Unknown [id number] Social History Date Type Detail Facility Start: 05-04-2017 End: 01-01-2022 Tobacco smoking status NHIS Never smoked tobacco Start: 05-04-2017 End: 01-01-2022 Tobacco use and exposure User of smokeless tobacco [facility] of tobacco use [facility] Start: 1990 Sex Assigned At Male [facility] Start: 12-08-2021 Tobacco smoking stat us NHIS Smoker (finding) [facility] Start: 12-22-2021 End: 01-01-2022 Exposure to SARS-CoV-2 (event) Not sure Start: 08-13-2022 End: 08-14-2022 History of Social function Start: 08-13-2022 End: 08-14-2022 Tobacco use panel Adult Depression Screening Assessment 4 Start: 11-09-2019 Gender identity Identifies as male gender (finding) Start: 11-09-2019 Sexual orientation Heterosexual (fin ding) Goals Date Patient Goal Desired Activity /State Functional Status Date Assessment Result Facility 12-10-2021 Functional status Patient at [facility] Work Phone: 12-07-2021 Functional status Disability Sta tus Patient at [facility] Work Phone: Mental Status Date Assessment Result Facility 12-10-2021 Cognitive function Cognitive Sta tus Patient at [facility] Work Phone: Clinical Notes 04-25-2017 to 11-13-2022 [...] refill of a tapered prednisone sent to [facility] in [place], . Please advise. Patient has been identified by name and birthdate. Duration of symptoms: N/A Person calling: self Call patient at: at home [phone] (home) [phone] (cell) Was an appointment scheduled: No Closing statement: Results or non-symptom based questions: Thank you for calling , your call will be returned within the next business day. [place] documented in this encounter 08-14-2022 Note HNO ID: [id number] Author: Delmy Boyle MD Service: ? Author [...] arthritic flares once every 4 months. Saw social services aide Dr. Jaime in [place] who did diagnostic knee aspiration which according to patient was positive for uric acid crystals. Treated with steroids and continued allopurinol. He has not seen Dr. Jaime since 2014. In 2014, he was hospitalized in [place] for acute polyarthritis. Saw social services aide while in hospital who told him that he possibly had RA. Discharged on steroids. His PCP switched him from allopurinol to Uloric Jan 2017. He also takes colchicine prn. No reduction in frequency or severity of his joint flares with Uloric. In 2017, he has been hospitalized 7-8 times for acute joint flares. Each time he is treated with steroids. Hospitalized at [facility] Apr 2017 for acute flare of [...] shoulder surgery by Dr. Tc Coffey at [facility]. No post op complications. Currently on PT - still working on shoulder ROM. 4. GENERAL HEALTH MAINTENANCE -continue follow up on his CKD with nephrology -he will follow up with his PCP for his general health issues RTC in 7 mon, sooner if needed INTERVAL HISTORY -at [facility], he was advised to increase allopurinol from 300 mg BID to 350 mg qam and 300 mg qpm but he is actually taking allopurinol 400 mg qam and 300 qpm instead. Tolerating this higher dose without issues. -He stopped drinking Nov 2021. He started drinking some since [facility]. -he had 2 flares of [...] (ZYLO (more content not included)... [facility] 06-29-2022 Miscellaneous Notes Called and spoke to [...] Days Visit Type Date Time Department [facility] 08/14/2022 11:40 AM [facility] REJ CBC: None on file in the [...] use of medications documented in this encounter 04-01-2022 Miscellaneous Notes The following approved medication [...] 365 Days Visit Type Date Time Department [facility] 08/14/2022 11:40 AM [facility] REJ CBC: None on file in the [...] Ordered Last Rel. URIC ACID BLOOD [SQURIC] 03/04 Once per month 05/30/22 05/30/21 12/29/21 Auth. [...] use of medications documented in this encounter 01-01-2022 Instructions Delmy Boyle MD - 01/01/2022 [...] at your visit. documented in this encounter 01-01-2022 History of Present illness Narrative Images [...] arthritic flares once every 4 months. Saw social services aide Dr. Jaime in [place] who did diagnostic knee aspiration which according to patient was positive for uric acid crystals. Treated with steroids and continued allopurinol. He has not seen Dr. Jaime since 2014. In 2014, he was hospitalized in [place] for acute polyarthritis. Saw social services aide while in hospital who told him that he possibly had RA. Discharged on steroids. His PCP switched him from allopurinol to Uloric Jan 2017. He also takes colchicine prn. No reduction in frequency or severity of his joint flares with Uloric. In 2016, he has been hospitalized 7-8 times for acute joint flares. Each time he is treated with steroids. Hospitalized at [facility] Apr 2017 for acute flare of [...] shoulder surgery by Dr. Tc Coffey at [facility]. No post op complications. 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 12-22-2021 Miscellaneous Notes The following approved medication [...] Idiopathic chronic gout of multiple sites with [facility] Rheumatology Delmy Boyle MD Upcoming Rheumatology Appointments - Next 365 Days Visit Type Date Time Department [facility] MEDICAL EXT 01/01/2022 11:20 AM [facility] REJ CBC: None on file in the [...] Lab Orders None documented in this encounter 12-10-2021 Discharge summary Note Date/Time December 10, 2021 10:19am [facility] [address] [place] [address] Discharge Summary Signed Patient: Nick Wray MR#: [id number] : 1990 Acct:[id number] Age/Sex: 31 / M Adm Date: 2 Loc: Room: [address] [place] [address]: Adam Young MD Copies to: [...] called EMS and he was taken to [facility] and subsequently brought here.? He says that [...] is eating okay.? Rates his depression today 10/10 and anxiety /10.? Says that most of his depression is [...] basis. He was made aware of the 21/09 emergency services of the crisis center and [...] No activity restrictions. 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 (insert date/time here) Intake: (Insert date/time here) Please bring a copy of your photo ID, insurance card, and proof of household income.? Psychiatry: (Insert date/time here) Group: (Insert date/time here ) ) Documented By: Nicola Leyva MD 2 1016 Signed By: <Electronically signed by Nicola Leyva MD> 12/10/21 1398 [facility] Work Phone: 1(200) 597-160410-11-2022 Progress note Author Nicola pelayo [facility] December 09, 2021 10:42am Note Date/Time December 09, 2021 8 :48am [facility] [address] [place] [address] Psychiatry Progress Note Signed Patient: Nick Wray MR#: [id number] : 1990 Acct:[id number] Age/Sex: 31 / M Adm Date: 2 Loc: Room: [address] [place] [address] Type : ADM IN Attending Dr: Adam [...] signed by Nicola Leyva MD> 12/09/21 1042 [facility] Work Phone: 1(213) 676-483310-10-2022 History and physical note Author Nicola pelayo [facility] December 08, 2021 1:32pm Note Date/Time December 08, 2021 1 2:43pm [facility] [address] [place] [address] Psychiatry H&P Signed Patient: Nick Wray MR#: [id number] : 1990 Acct:[id number] Age/Sex: 31 / M Adm Date: 2 Loc: Room: [address] [place] [address] Type: ADM IN Attending Dr: Adam Young MD [...] called EMS and he was taken to [place] [facility] and subsequently brought here. He says that [...] pack. He denies feeling worthless, hopeless, anhedonia. xavierient was personally seen by me on the day of the encounter.? I reviewed the history and performed the munoz elements of the assessment.? I formulated the planof care and confirmed this with the medical student as noted below Paitent stated that he has been depressed and admits to over drinking. He said his asked him to leave. He says he sleeps about 4 to 5 hours a night that he does struggle with racing thoughts at night. On Seroquel for sleep from his PCP. Says he is eating okay. Rates his depression today 12/08 and anxiety 11/08. 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 Author Type: [...] BY: RT Kanchan(R) November 29, 2020 10:24 [facility] [id number] NoteHNO ID: [id number] Author: Felicitas Perez RDMS Service: Radiology Author Type: Triple Air Valve Tester Type: Progress Notes Filed: 08/19/2020 12:51 PM [...] Not applicable SIGNED BY: Felicitas Perez RDMS [facility] August 19, 2020 12:51 [id number] NoteHNO ID: [id number] Author: Britany Mccann (Rt) Service: Radiology Author Type: Granite Installer Type: Progress Notes Filed: 04/02/2020 9:49 AM [...] BY: RT Ramy April 02, 2020 9:48 AMOgden [facility] Medical [id number] History of Past illness Narrative* Problem Noted Date Resolved Date Rheumatoid arthritis flare 04/25/201705/10 documented as of this encounter (statuses as of 08/05/2021) 2018 History of Past illness Narrative* Problem Noted Date Resolved Date Rheumatoid arthritis flare 04/25/201705/10 documented as of this encounter (statuses as of 12/22/2021) [address]25-2018 History of Past illness Narrative* Problem Noted Date Resolved Date Rheumatoid arthritis flare 04/25/201705/10 documented as of this encounter (statuses as of 01/01/2022) [address]-2018 History of Past illness Narrative* Problem Noted Date Resolved Date Rheumatoid arthritis flare 04/25/201705/10 documented as of this encounter (statuses as of 04/02/2022) [address]2018 History of Past illness Narrative* Problem Noted Date Resolved Date Rheumatoid arthritis flare 04/25/201705/10 documented as of this encounter (statuses as of 06/30/2022) [address]25[address]2018 History of Past illness Narrative* Problem Noted Date Diagnosed Date Resolved Date Rheumatoid arthritis flare 04/25/2017 0 05/10/2017 documented as of this encounter (statuses as of 11/14/2022) [address]2018 History of Past illness Narrative* Problem Noted Date Diagnosed Date Resolved Date Rheumatoid arthritis flare 04/25/2017 0 05/10/2017 documented as of this encounter (statuses as of 11/14/2022) [facility] Diagnosis 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) documented in this encounter [facility] noteNo assessment information available[facility] Work Phone: evaluation note* Diagnosis Onset Date Resolution Status Major depressive disorder, recurrent, moderate acute [facility] Work Phone: evaluation note* Diagnosis 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) documented in this encounter Evaluation note* Diagnosis Idiopathic chronic gout of multiple sites with tophus- Primary Chronic gouty arthropathy with tophus (tophi) Encounter for long-term (current) use of medications Encounter for long-term (current) use of other medications Stage 3 chronic kidney disease, unspecified whether stage 3a or 3b CKD (HCC) documented in [facility] encounter [facility]* Diagnosis 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 Additional Instructions Rest Apply ice to affected area Avoid electronics Follow-up with neurology on Wednesday Tylenol Motrin if needed for discomfort Return here if you develop any numbness, tingling, unilateral weakness, unsteady gait, confusion or any other concerns[facility] Work Phone: Hospital Discharge instructions Additional Instructions Regular diet. 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 DATE CREATED AUTHOR AUTHOR'S ORGANIZ ATION 11/30/2020 [facility] DATE CREATED AUTHOR AUTHOR'S ORGANIZ ATION 11/11/2021 [facility] dical Specialist DATE CREATED AUTHOR AUTHOR'S ORGANIZ ATION 08/07/2022 [facility] pital DATE CREATED AUTHOR AUTHOR'S ORGANIZ ATION 01/14/2023 [facility] dical Specialists [facility] DATE CREATED AUTHOR AUTHOR'S ORGANIZ ATION 2023 Katie Talbot haylie DATE CREATED AUTHOR AUTHOR'S ORGANIZ ATION 02/26/2023 [facility] DATE CREATED AUTHOR AUTHOR'S ORGANIZ ATION 02/27/2023 [facility] DATE CREATED AUTHOR AUTHOR'S ORGANIZ ATION 03/06/2023 [facility] Source Comments (unrecognize d section and content) In the event this informatio n is protected by the Federal Confidentiality of Alcohol and Drug Abuse Patient Records regulations: The Federal rules restrict any use of the information to criminally investigate or prosecute any alcohol or drug abuse patient.In the event this information is protected by the Federal Confidentiality of Alcohol and Drug Abuse Patient Records regulations: The Federal rules restrict any use of the information to criminally investigate or prosecute any alcohol or drug abuse patient.In the event this information is protected by the Federal Confidentiality of Alcohol and Drug Abuse Patient Records regulations: The Federal rules restrict any use of the information to criminally investigate or prosecute any alcohol or drug abuse patient.In the event this information is protected by the Federal Confidentiality of Alcohol and Drug Abuse Patient Records regulations: The Federal rules restrict any use of the information to criminally investigate or prosecute any alcohol or drug abuse patient.In the event this information is protected by the Federal Confidentiality of Alcohol and Drug Abuse Patient Records regulations: The Federal rules restrict any use of the information to criminally investigate or prosecute any alcohol or drug abuse patient.In the event this information is protected by the Federal Confidentiality of Alcohol and Drug Abuse Patient Records regulations: The Federal rules restrict any use of the information to criminally investigate or prosecute any alcohol or drug abuse patient.In the event this information is protected by the Federal Confidentiality of Alcohol and Drug Abuse Patient Records regulations: The Federal rules restrict any use of the information to criminally investigate or prosecute any alcohol or drug abuse patient. Care Teams (unrecognized sec tion and content) Hybrid Technologist Relationship Specialty Start Date End Date Leydi Aceves PCP - General Family Practice 01/07/15 Team Status: Inactive Member Role Status Dates Leydi Aceves MD Primary Care Provider Active Juvenal Smith MD Emergency Provider Active Team Status: Active Member Role Status Dates Leydi Aceves MD Primary Care Provider Active Team Status: Inactive Member Role Status Dates Leydi Aceves MD Primary Care Provider Active Adam Young MD Admit Provider, Attending Provider Active Hybrid Technologist Relationship Specialty Start Date End Date Leydi Acevesion PCP - General Family Medicine 01/07/15 Hybrid Technologist Relationship Specialty Start Date End Date Be Aceveschago Bobbycris PCP - General Family Medicine 01/07/15 Hybrid Technologist Relationship Specialty Start Date End Date Leydi Acevescris PCP - General Family Medicine 01/07/15 Hybrid Technologist Relationship Specialty Start Date End Date Leydi Acevescris PCP - General Family Medicine 01/07/15 Hybrid Technologist Relationship Specialty Start Date End Date Leydi Aceves MD PCP - General Family Medicine 01/07/15 Hybrid Technologist Relationship Specialty Start Date End Date Leydi [...] BE BASED ON THE PRIMARY CLINICAL RECORDS. [employer] [facility]. provides no warranty or guarantee of the accuracy or completeness of information in this document.
--- NOTE | 2023-03-06 14:16 | ED_ITS ---
HPI - Extremity Problem General Chief complaint: Extremity Problem, Nontraumatic Stated complaint: NAUSEA/ PAIN IN JOINTS Time Seen by Provider: 03/06/23 12:52 Source: patient Mode of arrival: walk-in History of Present Illness HPI Narrative: patient here for evaluation of bilateral knee pain right greater than left. This patient is well-known frequent visitor here. He is under the care of both a promotions associate who he is seeing and [place] this coming Wednesday, and he's also sees a local primary care doctor. He had surgery on his right knee recently and was told to double up on his pain medications postoperatively. He states that re ason his prescription is given to him on a monthly basis he ran out of. He is not running a fever. He has not had shaking chills. He's nota substantial redness or new joint effusion. I did do the [employer] search Related Data Home Medications Medication Instructions Recorded Confirmed allopurinol 300 mg tablet 600 mg PO DAILY 08/31/22 02/20/23 alprazolam 0.5 mg tablet 0.5 mg PO TID PRN anxiety 08/31/22 02/20/23 amlodipine 10 mg tablet 10 mg PO QDAY 08/31/22 02/20/23 carvedilol 6.25 mg tablet 6.25 mg PO DAILY 08/31/22 02/20/23 celecoxib 100 mg capsule 100 mg PO DAILY PRN RA flare 08/31/22 02/20/23 clonidine HCl 0.1 mg tablet 0.1 mg PO BID 08/31/22 02/20/23 colchicine 0.6 mg tablet 0.6 mg PO .every other 08/31/22 02/20/23 quetiapine 50 mg tablet See Rx Instructions PO .hs 08/31/22 02/20/23 tramadol 50 mg tablet 50 mg PO Q6H PRN pain 08/31/22 02/20/23 gabapentin 300 mg capsule 300 mg PO TID 02/15/23 02/20/23 (Neurontin) Previous Rx's Medication Instructions Recorded doxycycline hyclate 100 mg tablet 100 mg PO BID 10 days #20 tabs 02/16/23 oxycodone-acetaminophen 5 mg-325 1 tab PO Q6H PRN pain (scale score 02/16/23 mg tablet (Percocet) 4-6) #10 tabs oxycodone-acetaminophen 5 mg-325 2 tab PO Q6H PRN pain (scale score 02/16/23 mg tablet (Percocet) 7-10) #10 tabs Allergies Allergy/AdvReac Type Severity Reaction Status Date / Time No Known Drug Allergies Allergy Verified 02/20/23 12:59 PFSH PFSH Medical History Acute viral syndrome ?B34.9 - Viral infection, unspecified (ICD-10) Diarrhea ?R19.7 - Diarrhea, unspecified (ICD-10) Gouty arthritis ?M10.9 - Gout, unspecified (ICD-10) Rheumatoid arthritis flare ?M06.9 - Rheumatoid arthritis, unspecified (ICD-10) Polyarthralgia ?M25.50 - Pain in unspecified joint (ICD-10) Rheumatoid arthritis flare ?M06.9 - Rheumatoid arthritis, unspecified (ICD-10) Weakness ?R53.1 - Weakness (ICD-10) Mild shortness of breath ?R06.02 - Shortness of breath (ICD-10) Headache ?R51.9 - Headache, unspecified (ICD-10) Polyarthralgia ?M25.50 - Pain in unspecified joint (ICD-10) Flare of rheumatoid arthritis ?M06.9 - Rheumatoid arthritis, unspecified (ICD-10) Arthralgia ?M25.50 - Pain in unspecified joint (ICD-10) Drug-seeking behavior ?Z76.5 - Malingerer [conscious simulation] (ICD-10) Surgical History (Updated 02/14/23 @ 20:23 by Swathi Barkley RN) H/O shoulder surgery ?Z98.890 - Other specified postprocedural states (ICD-10) Social History Smoking status: Never smoker Highest level of school completed/degree received: Associate degree: occupational, technical, vocational program Exam Narrative Exam Narrative: well-hydrated well-nourished well-known to myself. Does not appear ill or toxic. Vital signs are stable. Examination both his knees show a well-healed incision over the right prepatellar area. There is no new joint effusion warmth or erythema. There is no lymphangitis. He does not have a pain swelling or phlebitis in his calves. Quadriceps are unremarkable. Does not have a discomfort in his upper extremities at this time. Constitutional Vital Signs, click to edit/add: Last Vital Signs Temp 98.2 F 03/06/23 12:50 Pulse 110 H 03/06/23 12:50 Resp 18 03/06/23 12:50 BP 147/91 H 03/06/23 12:50 Pulse Ox 99 03/06/23 12:50 O2 Del Method Room Air 03/06/23 13:06 Course Vital Signs Vital signs: Vital Signs Temperature 98.2 F 03/06/23 12:50 Pulse Rate 110 H 03/06/23 12:50 Respiratory Rate 18 03/06/23 12:50 Blood Pressure 147/91 H 03/06/23 12:50 Pulse Oximetry 99 03/06/23 12:50 Oxygen Delivery Method Room Air 03/06/23 12:50 Temperature 98.2 F 03/06/23 12:50 Pulse Rate 110 H 03/06/23 12:50 Respiratory Rate 18 03/06/23 12:50 Blood Pressure 147/91 H 03/06/23 12:50 Pulse Oximetry 99 03/06/23 12:50 Oxygen Delivery Method Room Air 03/06/23 13:06 MDM - Extremity (Nontraumatic) MDM Narrative Medical decision making narrative: this patient is scheduled to routinely see his rheumatology doctor this coming Wednesday I'll let her decide on any change in his RA medications and evaluate his joints and a holistic fashion. I explained Renny that I can only give two or three days with the pain medication. This is incumbent upon his primary care doctor. I don't see evidence of joint infection or systemic flare of RA at this time. Discharge Plan Discharge Chief Complaint: Extremity Problem, Nontraumatic Clinical Impression: Acute postoperative pain of knee Patient Disposition: Home, Self-Care Time of Disposition Decision: 14:19 Prescriptions / Home Meds: No Action gabapentin [Neurontin] 300 mg capsule 300 mg PO TID oxycodone-acetaminophen [Percocet] 5-325 mg tablet 2 tab PO Q6H PRN (Reason: pain (scale score 7-10)) Qty: 10 0RF doxycycline hyclate 100 mg tablet 100 mg PO BID 10 Days Qty: 20 0RF oxycodone-acetaminophen [Percocet] 5-325 mg tablet 1 tab PO Q6H PRN (Reason: pain (scale score 4-6)) Qty: 10 0RF Rx Instructions: DX: M10.9; to be taken with regular (daily) Percocet for breakthrough pain for a maximum of 4 Percocet tabs (q6h PRN pain daily) tramadol 50 mg tablet 50 mg PO Q6H PRN (Reason: pain) quetiapine 50 mg tablet See Rx Instructions PO .hs Patient Comments: per pt. 50mg with 25mg Rx Instructions: 75 orally HS; colchicine 0.6 mg tablet 0.6 mg PO .every other clonidine HCl 0.1 mg tablet 0.1 mg PO BID celecoxib 100 mg capsule 100 mg PO DAILY PRN (Reason: RA flare) carvedilol 6.25 mg tablet 6.25 mg PO DAILY amlodipine 10 mg tablet 10 mg PO QDAY alprazolam 0.5 mg tablet 0.5 mg PO TID PRN (Reason: anxiety) allopurinol 300 mg tablet 600 mg PO DAILY Additional Instructions: Percocet prescribed 12/Flexeril Stand Alone Forms: Portal Instructions Referrals: LEYDI ACEVES [Primary Care Provider] - 1 week
== END 2023-03-06 14:36 | disposition home or self-care (01) ==
PROVIDERS: Emergency Provider Emergency Medicine Emergency Medical Services; PCP Family Medicine
DX: G89.18 Other acute postprocedural pain (principal); M25.561 Pain in right knee; M10.9 Gout, unspecified; M06.9 Rheumatoid arthritis, unspecified; Z79.899 Other long term (current) drug therapy
CPT/HCPCS: 99283

== ENCOUNTER 2023-04-20 20:12 | Observation (INO) | payer OTHER, SELFPAY ==
[2023-04-20] VITALS (16 sets, daily range): BP systolic 123–172; BP diastolic 84–110; PULSE 102–126; RESP 12–28; TEMP 36.8–37.2; O2SAT 91–98; BMI 28.2; BMI 26.3
--- OUTSIDE RECORDS SUMMARY | 2023-04-20 20:19 | XMS_ITS | CCD ---
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 Ordering Facility: [facility] Address: [address] [place] [address] Performed By: #### 5 7021-8 #### [facility] CLIA [id number] [address] [place] [address] 76827 MCHC (RBC) [Mass/Vol] 32.7 g/dL Normal 30.5-36.0 [facility] Comment on above: Order Comment: Speci men Type: BLOOD SPECIMEN Ordering Facility: [facility] Address: [address] [place] [address] Performed By: #### 5 7021-8 #### [facility] CLIA [id number] [address] [place] [address] 32658 MCV (RBC) [Entitic vol] 88.2 fL Normal 80.0-100.0 [facility] Comment on above: Order Comment: Speci men Type: BLOOD SPECIMEN Ordering Facility: [facility] Address: [address] [place] [address] Performed By: #### 5 7021-8 #### [facility] CLIA [id number] [address] [place] [address] 05681 Monocytes (Bld) [#/Vol] 0.97 10*3/uL High <0.87 [facility] Comment on above: Order Comment: Speci men Type: BLOOD SPECIMEN Ordering Facility: [facility] Address: [address] [place] [address] Performed By: #### 5 7021-8 #### [facility] CLIA [id number] [address] [place] [address] 64868 Monocytes/100 WBC (Bld) 11.1 % Normal [facility] Comment on above: Order Comment: Speci men Type: BLOOD SPECIMEN Ordering Facility: [facility] Address: [address] [place] [address] Performed By: #### 5 7021-8 #### [facility] CLIA [id number] [address] [place] [address] 05475 Neutrophils (Bld) [#/Vol] 5.17 10*3/uL Normal 1.45-7.50 [facility] Comment on above: Order Comment: Speci men Type: BLOOD SPECIMEN Ordering Facility: [facility] Address: [address] [place] [address] Performed By: #### 5 7021-8 #### [facility] CLIA [id number] [address] [place] [address] 28450 Neutrophils/100 WBC (Bld) 59.4 % Normal [facility] Comment on above: Order Comment: Speci men Type: BLOOD SPECIMEN Ordering Facility: [facility] Address: [address] [place] [address] Performed By: #### 5 7021-8 #### [facility] CLIA [id number] [address] [place] [address] 20628 Nucleated RBC (Bld) [#/Vol] 10*3/uL Normal <0.01 [facility] Comment on above: Order Comment: Speci men Type: BLOOD SPECIMEN Ordering Facility: [facility] Address: [address] [place] [address] Performed By: #### 5 7021-8 #### [facility] CLIA [id number] [address] [place] [address] 35686 Nucleated RBC/100 WBC (Bld) [Ratio] 0.0 /100 WBC Normal [facility] Comment on above: Order Comment: Speci men Type: BLOOD SPECIMEN Ordering Facility: [facility] Address: [address] [place] [address] Performed By: #### 5 7021-8 #### [facility] CLIA [id number] [address] [place] [address] 49420 Platelet mean volume (Bld) [Entitic vol] 9.7 fL Normal 9.0-12.7 [facility] Comment on above: Order Comment: Speci men Type: BLOOD SPECIMEN Ordering Facility: [facility] Address: [address] [place] [address] Performed By: #### 5 7021-8 #### [facility] CLIA [id number] [address] [place] [address] 69857 Platelets (Bld) [#/Vol] 442 10*3/uL High 150-400 [facility] Comment on above: Order Comment: Speci men Type: BLOOD SPECIMEN Ordering Facility: [facility] Address: [address] [place] [address] Performed By: #### 5 7021-8 #### [facility] CLIA [id number] [address] [place] [address] 60326 RBC (Bld) [#/Vol] 4.99 10*6/uL Normal 4.20-6.00 [facility] Comment on above: Order Comment: Speci men Type: BLOOD SPECIMEN Ordering Facility: [facility] Address: [address] [place] [address] Performed By: #### 5 7021-8 #### [facility] CLIA [id number] [address] [place] [address] 58232 WBC (Bld) [#/Vol] 8.72 10*3/uL Normal 3.70-11.00 [facility] Comment on above: Order Comment: Speci men Type: BLOOD SPECIMEN Ordering Facility: [facility] Address: [address] [place] [address] Performed By: #### 5 7021-8 #### [facility] CLIA [id number] [address] [place] [address] 83388 CREATININE BLDon 03-04-2023 Creatinine [Mass/Vol] 1.21 mg/dL Normal 0.73-1.22 [facility] Comment on above: Order Comment: Yahaira mariee Type: BLOOD SPECIMEN Ordering Facility: [facility] Address: [address] [place] [address] Performed By: #### 1 742-6, 1919-09, 1750-08, CRET1 #### [facility] CLIA [id number] [address] [place] [address] 57089 Creatinine and Glomerular filtration rate.predicted panel (S/P/Bld) 81 mL/min/1.73m??? Normal >=60 [facility] Comment on above: Order Comment: Yahaira mariee Type: BLOOD SPECIMEN Ordering Facility: [facility] Address: [address] [place] [address] Result Comment: Jyoti mated Glomerular Filtration Rate [...] #### 1 742-6, 1919-09, 1750-08, CRET1 #### [facility] CLIA [id number] [address] [place] [address] 89866 CRP SerPl-mCncon 03-04-2023 CRP [Mass/Vol] 4.2 mg/dL High <0.9 [facility] Comment on above: Order Comment: Yahaira mariee Type: BLOOD SPECIMEN Ordering Facility: [facility] Address: [address] [place] [address] Performed By: #### 1 988-5 #### [facility] CLIA [id number] [address] [facility] [address] [id number] [address] [place] ESR Westergren method (Bld) [Velocity]on 03-04-2023 ESR (Bld) [Velocity] 29 mm/h High 0-15 [facility] Comment on above: Order Comment: Speci men Type: BLOOD SPECIMEN Ordering Facility: [facility] Address: [address] [place] [address] Performed By: #### 3 084-1 #### [facility] CLIA [id number] [address] [place] [address] 68179 Urate SerPl-mCncon 4 Urate [Mass/Vol] 14.6 mg/dL High 4.0-8.1 [facility] Comment on above: Order Comment: Speci men Type: BLOOD SPECIMEN Ordering Facility: [facility] Address: [address] [place] [address] Performed By: #### 3 084-1 #### [facility] CLIA [id number] [address] [place] [address] 87059 Consent for Treatmenton 01-30 Consent for Treatment [id number] Normal [facility] Discharge Instructionson Discharge Instructions [id number] Normal [facility] ED Clinical Summaryon 2022 ED Clinical Summary (Inserted Image. Jodi ble to display) [address] [address] ED Clinical Summary Person Information Name: NICK WRAY [facility] Age: 32 Years : 1990 Sex: Male Language: Slovenian PCP: LEYDI ACEVES MD Marital Status: MRN: [...] 02/24/2023 15:31:03 02/24/2023 15:31:03 02/24/2023 15:31:03 ADDRESS: [address] [place] [id number] PHYS DOC NOTES: MEDICAL INFORMATION: Prescriptions Given: New Medications [id number], [address], [place] [id number], [phone] predniSONE (predniSONE 10 mg Tab) 1 Dose [...] pain. PATIENT EDUCATION INFORMATION: Instructions: Knee Effusion, Nvlb-ad-Nden Follow up: With: Address: When: LEYDI ACEVES [address] [place] [address] [facility] () In 3 days 02/27/2023 Comments: Take the steroids once daily as prescribed to completed the course. Please follow-up with your primary care doctor in the next 2 to 3 days for further evaluation management. Please return to ED for any worsening symptoms. Follow-up with your orthopedic doctor for further evaluation management. DIAGNOSIS: Swelling of joint, knee, right Normal [facility] ED Note-Physicianon 02-25-20 23 ED Note-Physician Basic Information Time Seen: Ladi Huber DO 02/24/2023 14:07 Chief Complaint Pt had knee surgery for scope to clean out gout in [place] by a doctor out of [place]. Pt. states has had fluiding building up in R knee since Wednesday. Called ortho doc who did surgery and told to go to ER to get fluid drained. Attempted to go to [place] History of Present Illness Patient is a 30-year-old male with past medical history of rheumatoid arthritis, gout presenting to the ED for evaluation of swelling to the right knee. Patient states he had a scope for gout in [place] on Wednesday, since then has been having [...] and Complexity of Problems Differential Diagnosis: [] [facility] Data External documents reviewed: [] My [...] days., # 75 tab(s), Refills(s) 0, Pharmacy: [id number], 187, cm, 02/24/23 12:43:00 EST, Height/Length Dosing... Disposition Plan Discharge Prescription List Prescriptions predniSONE 10 mg Tab, 1 -, Oral, As Directed Follow-up With When Contact Information LEYDI ACEVES In 3 days 02/27/2023 EST [address] [place] [address]- Business (1) Additional Instructions: Take the steroids once daily as prescribed to completed the course. Please follow-up with your primary care doctor in the next 2 to 3 days for further evaluation management. Please return to ED for any worsening symptoms. Follow-up with your orthopedic doctor for further evaluation management. Patient Education Knee Effusion, Jjfz-xd-Nkfn Problem List/Past Medical History Ongoing No qualifying [...] 1 tab(s) (more content not included)... Normal [facility] Comment on above: Result Comment: Elec tronically Signed By: Ladi Huber DO\.br\Date and Time Signed: 02/24/23 14:41 EST ED [...] by your doctor. General instructions ? Take mrcc-rjg-kmlwkjt and prescription medicines only as told by [...] bend and move your knee. ? Take gxol-lfe-eqpctob and prescription medicines only as told by [...] Reviewed: 10/16/2020 Elsevier Patient Education ? 2022 [employer] Normal [facility] ED Patient Summaryon 023 ED Patient Summary (Inserted Image. Jodi ble to display) [place] [id number] Patient Discharge Instructions Person Information Name: NICK WRAY Age: 32 Years Arrival Date: 02/24/2023 12:18:34 Discharge Diagnosis: Swelling of joint, knee, right Primary Care Physician: LEYDI ACEVES MD Provider Information Primary Provider: Ladi Huber DO Advanced Tugboat Operator:None The exam and treatment you received in the Emergency Department were for an urgent problem and are not intended as complete care. It is important that you follow up with a doctor, nurse practitioner, or physician?s assistant refinery operator for ongoing care. If your symptoms become worse or you do not improve as expected and you are unable to reach your usual health care provider, you should return to the Emergency Department. We are available 24 hours a day. NICK WRAY has been given the following list of patient education materials, prescriptions and follow-up instructions: Follow-up Instructions: With: Address: When: LEYDI ACEVES [address] [place] [address] [facility] (1) In 3 days 02/27/2023 Comments: Take [...] participating provider. Patient Education Materials: Knee Effusion, Aemc-qh-Kohs A MESSAGE TO ALL PATIENTS REGARDING OPIOIDS PRESCRIPTION OPIOIDS: WHAT YOU NEED TO KNOW Prescription opioids can be used to help relieve zunttoui-gd-jnypnq pain and are often prescribed following a [...] Administration (www.fd (more content not included)... Normal [facility] Crystals, Fluidson 3 Crystals,Fluid Positive Abnormal NEG [facility] Comment on above: Result Comment: FEW INTRACELLULAR AND MANY EXTRACELLULAR URIC ACID CRYSTALS Performed By: #### F LCRYS #### [facility] [address] [place] [address] Technical Operator: Krish Abdi MD [facility] [address] [place] [address] Technical Operator: Drew Godoy MD #### FLDCT #### [facility] [address] [place] [address] Technical Operator: Drew Godoy MD Pathologist Review: ELECTRONICALLY KEN GODOY MD [facility] Comment on above: Performed By: #### F LCRYS #### [facility] [address] [place] [address] Technical Operator: Krish Abdi MD [facility] [address] [place] [address] Technical Operator: Drew Godoy MD #### FLDCT #### [facility] [address] [place] [address] Technical Operator: Drew Godoy MD Fluid Cell Count and Diffon 02-19-2023 Basophils/100 WBC (Bld) 0 % Normal 0 [facility] Comment on above: Performed By: #### F LCRYS #### [facility] [address] [place] [address] Technical Operator: Krish Abdi MD [facility] [address] [place] [address] Technical Operator: Drew Godoy MD #### FLDCT #### [facility] [address] [place] [address] Technical Operator: Drew Godoy MD Eosinophils/100 WBC (Bld) 0 % Normal 0 [facility] Comment on above: Performed By: #### F LCRYS #### [facility] [address] [place] [address] Technical Operator: Krish Abdi MD [facility] [address] [place] [address] Technical Operator: Drew Godoy MD #### FLDCT #### [facility] [address] [place] [address] Technical Operator: Drew Godoy MD Lymphocytes/100 WBC (Bld) 10 % Normal [facility] Comment on above: Performed By: #### F LCRYS #### [facility] [address] [place] [address] Technical Operator: Krish Abdi MD [facility] [address] [place] [address] Technical Operator: Drew Godoy MD #### FLDCT #### [facility] [address] [place] [address] Technical Operator: Drew Godoy MD Barron/Macrophage 0 % Normal [facility] Comment on above: Performed By: #### F LCRYS #### [facility] [address] [place] [address] Technical Operator: Krish Abdi MD [facility] [address] [place] [address] Technical Operator: Drew Godoy MD #### FLDCT #### [facility] [address] [place] [address] Technical Operator: Drew Godoy MD Neutrophils/100 WBC (Bld) 90 % Normal [facility] Comment on above: Performed By: #### F LCRYS #### [facility] [address] [place] [address] Technical Operator: Krish Abdi MD [facility] [address] [place] [address] Technical Operator: Drew Godoy MD #### FLDCT #### [facility] [address] [place] [address] Technical Operator: Drew Godoy MD RBC (Bld) [#/Vol] 0.26374 10*6/uL Normal [facility] Comment on above: Performed By: #### F LCRYS #### [facility] [address] [place] [address] Technical Operator: Krish Abdi MD [facility] [address] [place] [address] Technical Operator: Drew Godoy MD #### FLDCT #### [facility] [address] [place] [address] Technical Operator: Drew Godoy MD WBC (Bld) [#/Vol] 9.96 10*3/uL Normal [facility] Comment on above: Performed By: #### F LCRYS #### [facility] [address] [place] [address] Technical Operator: Krish Abdi MD [facility] [address] [place] [address] Technical Operator: Drew Godoy MD #### FLDCT #### [facility] [address] [place] [address] Technical Operator: Drew Godoy MD Appearance (U) Cloudy [facility] Comment on above: Performed By: #### F LCRYS #### [facility] [address] [place] [address] Technical Operator: Krish Abdi MD [facility] [address] [place] [address] Technical Operator: Drew Godoy MD #### FLDCT #### [facility] [address] [place] [address] Technical Operator: Drew Godoy MD Color (U) Pale Yellow [facility] Comment on above: Performed By: #### F LCRYS #### [facility] [address] [place] [address] Technical Operator: Krish Abdi MD [facility] [address] [place] [address] Technical Operator: Drew Godoy MD #### FLDCT #### [facility] [address] [place] [address] Technical Operator: Drew Godoy MD Type of Specimen .FLUID [facility] Comment on above: Performed By: #### F LCRYS #### [facility] [address] [place] [address] Technical Operator: Krish Abdi MD [facility] [address] [place] [address] Technical Operator: Drew Godoy MD #### FLDCT #### [facility] [address] [place] [address] Technical Operator: MD Cyn Gutiérrez 11-13-2022 HELIO Telephone (ORQ) -- KAMALANICK ([id number]) 1990 M Date Time Provider Department 11/13/22 DELMY BOYLE ORQ During your visit today, we recorded the following information about you: Madonna Mitchell 11/13/2022 12:07 PM Signed Nick Bennett Kamala is calling Delmy Boyle MD today stating that his PCP that is with [facility] is having technical difficulties and that their version of mychart is down along with the phone system. He needs a refill of a tapered prednisone sent to [facility] in [place], . Please advise. Patient has been identified by name and birthdate. Duration of symptoms: N/A Person calling: self Call patient at: at home [phone] (home) [phone] (cell) Was an appointment scheduled: No Closing statement: Results or non-symptom based questions: Thank you for calling [facility], your call will be returned within [...] Fully Assessed Reason for Visit: Patient Request [2706] Order(s):predniSONE (DELTASONE) 5 mg tabletTake 6 tab [...] Encounter Status:Closed by DELMY BOYLE on 11/13/22 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 Polyarthritis with several nodules mainly [...] arthritic flares once every 4 months. Saw residential framing carpenter Dr. Jaime in [place] who did diagnostic knee aspiration which according to patient was positive for uric acid crystals. Treated with steroids and continued allopurinol. He has not seen Dr. Jaime since 2014. In 2014, he was hospitalized in [place] for acute polyarthritis. Saw residential framing carpenter while in hospital who told him that he possibly had RA. Discharged on steroids. His PCP switched him from allopurinol to Uloric Jan 2017. He also takes colchicine prn. No reduction in frequency or severity of his joint flares with Uloric. In 2016, he has been hospitalized 7-8 times for acute joint flares. Each time he is treated with steroids. Hospitalized at [facility] Apr 2017 for acute flare of inflammatory [...] shoulder surgery by [facility] Tc Coffey [facility]. No post op complications. Currently on PT - still working on shoulder ROM. 4. GENERAL HEALTH MAINTENANCE -continue follow up on his CKD with nephrology -he will follow up with his PCP for his general health issues RTC in 7 mon, sooner if needed INTERVAL HISTORY -at [facility], he was advised to increase allopurinol from 300 mg BID to 350 mg qam and 300 mg qpm but he is actually taking allopurinol 400 mg qam and 300 qpm instead. Tolerating this higher dose without issues. -He stopped drinking Nov 2021. He started drinking some since [facility]. -he had 2 flares of [...] 30 min (more content not included)... Normal [facility] ALT SerPl-cCncon 08-12-2022 ALT [Catalytic activity/Vol] 30 U/L Normal 10-54 [facility] Comment on above: Order Comment: Speci men Type: BLOOD SPECIMEN Ordering Facility: [facility] Address: [address] [place] [address] Performed By: #### 3 084-1 #### [facility] CLIA [id number] [address] [place] [address] AST SerPl-cCncon 08-12-2022 AST [Catalytic activity/Vol] 28 U/L Normal 14-40 [facility] Comment on above: Order Comment: Speci men Type: BLOOD SPECIMEN Ordering Facility: [facility] Address: [address] [place] [address] Performed By: #### 3 084-1 #### [facility] CLIA [id number] [address] [place], [place] [address] Albumin SerPl-mCncon 023 Albumin [Mass/Vol] 4.5 g/dL Normal 3.9-4.9 [facility] Comment on above: Order Comment: Speci men Type: BLOOD SPECIMEN Ordering Facility: [facility] Address: [address] [place] [address] Performed By: #### 3 084-1 #### [facility] CLIA [id number] [address] [place], [place] [address] CBC W Auto Differential pane l (Bld)on 08-12-2022 Basophils (Bld) [#/Vol] 0.00 10*3/uL Normal <0.11 [facility] Comment on above: Order Comment: Speci men Type: BLOOD SPECIMEN Ordering Facility: [facility] Address: [address] [place] [address] Performed By: #### 5 7021-8 #### [facility] CLIA [id number] [address] [place] [address] LAB CLIA [id number] [address] [place] [address] [place] Basophils/100 WBC (Bld) 0.0 % Normal [facility] Comment on above: Order Comment: Speci men Type: BLOOD SPECIMEN Ordering Facility: [facility] Address: [address] [place] [address] Performed By: #### 5 7021-8 #### [facility] CLIA [id number] [address] [place] [address] LAB CLIA [id number] [address] [place] [address] [place] Differential cell count method Nom (Bld) Manual Normal [facility] Center Comment on above: Order Comment: Speci men Type: BLOOD SPECIMEN Ordering Facility: [facility] Address: [address] Performed By: #### 5 7021-8 #### [facility] CLIA [id number] [address] [place] [address] LAB CLIA [id number] [address] [place] [address] [place] Eosinophils (Bld) [#/Vol] 0.08 10*3/uL Normal <0.46 [facility] Comment on above: Order Comment: Speci men Type: BLOOD SPECIMEN Ordering Facility: [facility] Address: [address] [place] [address] Performed By: #### 5 7021-8 #### [facility] CLIA [id number] [address] [place] [address] LAB CLIA [id number] [address] [place] [address] [place] Eosinophils/100 WBC (Bld) 0.9 % Normal [facility] Comment on above: Order Comment: Speci men Type: BLOOD SPECIMEN Ordering Facility: [facility] Address: [address] [place] [address] Performed By: #### 5 7021-8 #### [facility] CLIA [id number] [address] [place] [address] LAB CLIA [id number] [address] [place] [address] [place] Erythrocyte distribution width (RBC) [Ratio] 14.6 % Normal 11.5-15.0 [facility] Comment on above: Order Comment: Speci men Type: BLOOD SPECIMEN Ordering Facility: [facility] Address: [address] [place] [address] Performed By: #### 5 7021-8 #### [facility] CLIA [id number] [address] [place] [address] LAB CLIA [id number] [address] [place] [address] [place] Hematocrit (Bld) [Volume fraction] 45.7 % Normal 39.0-51.0 [facility] Comment on above: Order Comment: Speci men Type: BLOOD SPECIMEN Ordering Facility: [facility] Address: [address] [place] [address] Performed By: #### 5 7021-8 #### [facility] CLIA [id number] [address] [place] [address] LAB CLIA [id number] [address] [place] [address] [place] Hemoglobin (Bld) [Mass/Vol] 15.3 g/dL Normal 13.0-17.0 [facility] Comment on above: Order Comment: Speci men Type: BLOOD SPECIMEN Ordering Facility: [facility] Address: [address] [place] [address] Performed By: #### 5 7021-8 #### [facility] CLIA [id number] [address] [place] [address] LAB CLIA [id number] [address] [place] [address] [place] Lymphocytes (Bld) [#/Vol] 3.27 10*3/uL Normal 1.00-4.00 [facility] Comment on above: Order Comment: Speci men Type: BLOOD SPECIMEN Ordering Facility: [facility] Address: [address] [place] [address] Performed By: #### 5 7021-8 #### [facility] CLIA [id number] [address] [place] [address] LAB CLIA [id number] [address] [place] [address] [place] Lymphocytes/100 WBC (Bld) 37.7 % Normal [facility] Comment on above: Order Comment: Speci men Type: BLOOD SPECIMEN Ordering Facility: [facility] Address: [address] [place], [place] [address] Performed By: #### 5 7021-8 #### [facility] CLIA [id number] [address] [place] [address] LAB CLIA [id number] [address] [place] [address] [place] MCH (RBC) [Entitic mass] 29.4 pg Normal 26.0-34.0 [facility] Comment on above: Order Comment: Speci men Type: BLOOD SPECIMEN Ordering Facility: [facility] Address: [address] [place] [address] Performed By: #### 5 7021-8 #### [facility] CLIA [id number] [address] [place] [address] LAB CLIA [id number] [address] [place] [address] [place] MCHC (RBC) [Mass/Vol] 33.5 g/dL Normal 30.5-36.0 [facility] Comment on above: Order Comment: Speci men Type: BLOOD SPECIMEN Ordering Facility: [facility] Address: [address] [place] [address] Performed By: #### 5 7021-8 #### [facility] CLIA [id number] [address] [place] [address] LAB CLIA [id number] [address] [place] [address] [place] MCV (RBC) [Entitic vol] 87.9 fL Normal 80.0-100.0 [facility] Comment on above: Order Comment: Speci men Type: BLOOD SPECIMEN Ordering Facility: [facility] Address: [address] [place] [address] Performed By: #### 5 7021-8 #### [facility] CLIA [id number] [address] [place] [address] LAB CLIA [id number] [address] [place] [address] [place] Monocytes (Bld) [#/Vol] 0.23 10*3/uL Normal <0.87 [facility] Comment on above: Order Comment: Speci men Type: BLOOD SPECIMEN Ordering Facility: [facility] Address: [address] [place], [place] [address] Performed By: #### 5 7021-8 #### [facility] CLIA [id number] [address] [place] [address] LAB CLIA [id number] [address] [place] [address] [place] Monocytes/100 WBC (Bld) 2.6 % Normal [facility] Comment on above: Order Comment: Speci men Type: BLOOD SPECIMEN Ordering Facility: [facility] Address: [address] [place], [place] [address] Performed By: #### 5 7021-8 #### [facility] CLIA [id number] [address] [place] [address] LAB CLIA [id number] [address] [place] [address] [place] Neutrophils (Bld) [#/Vol] 5.10 10*3/uL Normal 1.45-7.50 [facility] Comment on above: Order Comment: Speci men Type: BLOOD SPECIMEN Ordering Facility: [facility] Address: [address] [place] [address] Performed By: #### 5 7021-8 #### [facility] CLIA [id number] [address] [place] [address] LAB CLIA [id number] [address] [place] [address] [place] Neutrophils/100 WBC (Bld) 58.8 % Normal [facility] Comment on above: Order Comment: Speci men Type: BLOOD SPECIMEN Ordering Facility: [facility] Address: [address] [place] [address] Performed By: #### 5 7021-8 #### [facility] CLIA [id number] [address] [place] [address] LAB CLIA [id number] [address] [place] [address] [place] Nucleated RBC (Bld) [#/Vol] 10*3/uL Normal <0.01 [facility] Comment on above: Order Comment: Speci men Type: BLOOD SPECIMEN Ordering Facility: [facility] Address: [address] [place], [place] [address] Performed By: #### 5 7021-8 #### [facility] CLIA [id number] [address] [place] [address] LAB CLIA [id number] [address] [place] [address] [place] Nucleated RBC/100 WBC (Bld) [Ratio] 0.0 /100 WBC Normal [facility] Comment on above: Order Comment: Speci men Type: BLOOD SPECIMEN Ordering Facility: [facility] Address: [address] Performed By: #### 5 7021-8 #### [facility] CLIA [id number] [address] [place] [address] LAB CLIA [id number] [address] [place] [address] [place] Platelet mean volume (Bld) [Entitic vol] 10.1 fL Normal 9.0-12.7 [facility] Comment on above: Order Comment: Speci men Type: BLOOD SPECIMEN Ordering Facility: [facility] Address: [address] Performed By: #### 5 7021-8 #### [facility] CLIA [id number] [address] [place] [address] LAB CLIA [id number] [address] [place] [address] [place] Platelets (Bld) [#/Vol] 289 10*3/uL Normal 150-400 [facility] Comment on above: Order Comment: Speci men Type: BLOOD SPECIMEN Ordering Facility: [facility] Address: [address] Performed By: #### 5 7021-8 #### [facility] CLIA [id number] [address] [place] [address] LAB CLIA [id number] [address] [place] [address] [place] Platelets Estimate (Bld) [#/Vol] Adequate Normal [facility] Comment on above: Order Comment: Speci men Type: BLOOD SPECIMEN Ordering Facility: [facility] Address: [address] [place], [place] [address] Performed By: #### 5 7021-8 #### [facility] CLIA [id number] [address] [place] [address] LAB CLIA [id number] [address] [place] [address] [place] RBC (Bld) [#/Vol] 5.20 10*6/uL Normal 4.20-6.00 [facility] Comment on above: Order Comment: Speci men Type: BLOOD SPECIMEN Ordering Facility: [facility] Address: [address] [place] [address] Performed By: #### 5 7021-8 #### [facility] CLIA [id number] [address] [place] [address] LAB CLIA [id number] [address] [place] [address] [place] RED CELL MORPH Reviewed: unremarkable Normal [facility] Comment on above: Order Comment: Speci men Type: BLOOD SPECIMEN Ordering Facility: [facility] Address: [address] [place] [address] Performed By: #### 5 7021-8 #### [facility] CLIA [id number] [address] [place] [address] LAB CLIA [id number] [address] [place] [address] [place] WBC (Bld) [#/Vol] 8.67 10*3/uL Normal 3.70-11.00 [facility] Comment on above: Order Comment: Speci men Type: BLOOD SPECIMEN Ordering Facility: [facility] Address: [address] [place] [address] Performed By: #### 5 7021-8 #### [facility] CLIA [id number] [address] [place] [address] LAB CLIA [id number] [address] [place] [address] [place] CREATININE BLDon 08-12-2022 Creatinine [Mass/Vol] 1.28 mg/dL High 0.73-1.22 [facility] Comment on above: Order Comment: Speci men Type: BLOOD SPECIMEN Ordering Facility: [facility] Address: [address] [address] Performed By: #### C RET1 #### [facility] CLIA [id number] [address] [place], [place] [address] ESTIMATED GLOMERULAR FILTRATION RATE 76 mL/min/1.73m??? Normal >=60 [facility] Comment on above: Order Comment: Speci men Type: BLOOD SPECIMEN Ordering Facility: [facility] Address: [address] [address] Result Comment: Jyoti mated Glomerular Filtration Rate [...] GFR. Performed By: #### C RET1 #### [facility] CLIA [id number] [address] [place] [address] CRP SerPl-mCncon 08-12-2022 CRP [Mass/Vol] mg/L Normal <0.9 [facility] Comment on above: Order Comment: Speci men Type: BLOOD SPECIMEN Ordering Facility: [facility] Address: [address] [place] [address] Performed By: #### 1 742-6, 1920-8, 1751-7, CRET1 #### [facility] CLIA [id number] [address] [place], [place] [address] ESR Westergren method (Bld) [Velocity]on 08-12-2022 ESR (Bld) [Velocity] 5 mm/h Normal 0-15 [facility] Comment on above: Order Comment: Speci men Type: BLOOD SPECIMEN Ordering Facility: [facility] Address: [address] [address] Performed By: #### 4 537-7 #### [facility] CLIA [id number] [address] [facility] [address] [id number] [place] Urate SerPl-mCncon 3 Urate [Mass/Vol] 9.2 mg/dL High 4.0-8.1 [facility] Comment on above: Order Comment: Speci men Type: BLOOD SPECIMEN Ordering Facility: [facility] Address: [address] [place] [address] Performed By: #### 3 084-1 #### [facility] CLIA [id number] [address] [place], [place] [address] CBC AUTO DIFFon 06-28-2022 BASO # 0.0 103/ul Normal 0.0-0.1 [facility] Comment on above: Performed By: #### C BC #### [facility] [address] [address] [address] Nilay Gibbs Basophils/100 WBC (Bld) 0.2 % Normal 0.2-2.0 [facility] Comment on above: Performed By: #### C BC #### [facility] [address] [address] [address] Nilay Gibbs EO # 0.0 103/ul Normal 0.0-0.7 [facility] Comment on above: Performed By: #### C BC #### [facility] [address] [address] [address] Nilay Gibbs Eosinophils/100 WBC (Bld) 0.3 % Critically low 0.9-7.0 [facility] Comment on above: Performed By: #### C BC #### [facility] [address] [address] [address] Nilay Gibbs Erythrocyte distribution width (RBC) [Ratio] 13.9 % Normal 11.0-15.0 [facility] Comment on above: Performed By: #### C BC #### [facility] [address] [address] [address] Nilay Gibbs Hematocrit (Bld) [Volume fraction] 39.8 % Critically low 42.0-54.0 [facility] Comment on above: Performed By: #### C BC #### [facility] [address] [address] [address] Nilay Gibbs Hemoglobin (Bld) [Mass/Vol] 13.2 g/dL Critically low 14.0-18.0 [facility] Comment on above: Performed By: #### C BC #### [facility] [address] [address] [address] Nilay Gibbs IG # 0.04 10e3/ul Critically high 0.00-0.03 [facility] Comment on above: Performed By: #### C BC #### [facility] [address] [address] [address] Nilay Gibbs IG % 0.4 % Normal 0.0-0.5 [facility] Comment on above: Performed By: #### C BC #### [facility] [address] [place] [address] Dr. Nilay Gibbs LYMPH # 1.8 103/ul Normal 1.2-3.8 [facility] Comment on above: Performed By: #### C BC #### [facility] [address] [place] [address] Dr. Nilay Gibbs Lymphocytes/100 WBC (Bld) 17.5 % Critically low 20.5-60.0 [facility] Comment on above: Performed By: #### C BC #### [facility] [address] [place] [address] Dr. Nilay Gibbs MANUAL DIFF REQ NO Normal [facility] Comment on above: Performed By: #### C BC #### [facility] [address] [address] [address] Nilay Gibbs MCH (RBC) [Entitic mass] 29.3 pg Normal 25.9-34.0 [facility] Comment on above: Performed By: #### C BC #### [facility] [address] [place] [address] Dr. Nilay Gibbs MCHC (RBC) [Mass/Vol] 33.2 g/dL Normal 29.9-35.2 [facility] Comment on above: Performed By: #### C BC #### [facility] [address] [place] [address] Dr. Nilay Gibbs MCV (RBC) [Entitic vol] 88.4 fL Normal 80.0-94.0 [facility] Comment on above: Performed By: #### C BC #### [facility] [address] [address] [address] Nilay Gibbs MONO # 0.9 103/ul Critically high 0.3-0.8 [facility] Comment on above: Performed By: #### C BC #### [facility] [address] [address] [address] Nilay Gibbs Monocytes/100 WBC (Bld) 9.4 % Normal 1.7-12.0 [facility] Comment on above: Performed By: #### C BC #### [facility] [address] [place] [address] Dr. Nilay Gibbs NEUT # 7.2 103/ul Critically high 1.4-6.5 [facility] Comment on above: Performed By: #### C BC #### [facility] [address] [place] [address] Dr. Nilay Gibbs Neutrophils/100 WBC (Bld) 72.2 % Normal 43.0-75.0 [facility] Comment on above: Performed By: #### C BC #### [facility] [address] [place] [address] Dr. Nilay Gibbs Platelet mean volume (Bld) [Entitic vol] 9.6 fL Normal 9.5-13.5 [facility] Comment on above: Performed By: #### C BC #### [facility] [address] [place] [address] Dr. Nilay Gibbs PLT 356 103/ul Normal 150-450 [facility] Comment on above: Performed By: #### C BC #### [facility] [address] [place], [place] [id number] Dr. Nilay Gibbs RBC 4.50 106/ul Critically low 4.70-6.10 [facility] Comment on above: Performed By: #### C BC #### [facility] [address] [place] [address] Dr. Nilay Gibbs WBC 10.0 103/ul Normal 4.0-11.0 [facility] Comment on above: Performed By: #### C BC #### [facility] [address] [place] [address] Dr. Nilay Gibbs PROF CHEM 8 (BAS METB)on Anion gap [Moles/Vol] 12.4 mmol/L Normal [facility] Comment on above: Performed By: #### A MM #### [facility] [address] [place] [address] Dr. Nilay Gibbs Calcium [Mass/Vol] 9.4 mg/dL Normal 8.5-10.1 [facility] Comment on above: Performed By: #### A MM #### [facility] [address] [place] [address] Dr. Nilay Gibbs Chloride [Moles/Vol] 105 mmol/L Normal 98-107 [facility] Comment on above: Performed By: #### A MM #### [facility] [address] [place] [address] Dr. Nilay Gibbs CO2 [Moles/Vol] 25.6 mmol/L Normal 21.0-32.[address] [facility] Comment on above: Performed By: #### A MM #### [facility] [address] [place] [address] Dr. Nilay Gibbs Creatinine [Mass/Vol] 1.18 mg/dL Normal 0.70-1.30 [facility] Comment on above: Performed By: #### A MM #### [facility] [address] [place] [address] Dr. Nilay Gibbs EGFR-AF OMANI >60 Normal >=[address] [facility] Comment on above: Performed By: #### A MM #### [facility] [address] [place] [address] Dr. Nilay Gibbs EGFR-NON AF OMANI >60 Normal >=60 [facility] Comment on above: Performed By: #### A MM #### [facility] [address] [place] [address] Dr. Nilay Gibbs Glucose [Mass/Vol] 125 mg/dL Critically high 74-106 [facility] Comment on above: Performed By: #### A MM #### [facility] [address] [address] [address] Nilay Gibbs Potassium [Moles/Vol] 4.3 mmol/L Normal 3.5-5.1 [facility] Comment on above: Performed By: #### A MM #### [facility] [address] [address] [address] Nilay Gibbs Sodium [Moles/Vol] 139 mmol/L Normal 136-145 [facility] Comment on above: Performed By: #### A MM #### [facility] [address] [place] [address] Dr. Nilay Gibbs Urea nitrogen [Mass/Vol] 15.0 mg/dL Normal 7.0-18.0 [facility] Comment on above: Performed By: #### A MM #### [facility] [address] [place] [address] Dr. Nilay Gibbs Urea nitrogen/Creatinine [Mass ratio] 12.7 mg/mg Normal [facility] Comment on above: Performed By: #### A MM #### [facility] [address] [place] [address] Dr. Nilay Gibbs CBC AUTO DIFFon 06-20-2022 BASO # 0.0 103/ul Normal 0.0-0.1 [facility] Comment on above: Performed By: #### A MM #### [facility] [address] [place] [address] Dr. Nilay Gibbs Basophils/100 WBC (Bld) 0.2 % Normal 0.2-2.0 [facility] Comment on above: Performed By: #### A MM #### [facility] [address] [place] [address] Dr. Nilay Gibbs EO # 0.0 103/ul Normal 0.0-0.7 [facility] Comment on above: Performed By: #### A MM #### [facility] [address] [place] [address] Dr. Nilay Gibbs Eosinophils/100 WBC (Bld) 0.3 % Critically low 0.9-7.0 [facility] Comment on above: Performed By: #### A MM #### [facility] [address] [place] [address] Dr. Nialy Gibbs Erythrocyte distribution width (RBC) [Ratio] 14.3 % Normal 11.0-15.0 [facility] Comment on above: Performed By: #### A MM #### [facility] [address] [place] [address] Dr. Nilay Gibbs Hematocrit (Bld) [Volume fraction] 39.3 % Critically low 42.0-54.0 [facility] Comment on above: Performed By: #### A MM #### [facility] [address] [place] [address] Dr. Nilay Gibbs Hemoglobin (Bld) [Mass/Vol] 13.1 g/dL Critically low 14.0-18.0 [facility] Comment on above: Performed By: #### A MM #### [facility] [address] [place] [address] Dr. Nilay Gibbs IG # 0.03 10e3/ul Normal 0.00-0.03 [facility] Comment on above: Performed By: #### A MM #### [facility] [address] [place] [address] Dr. Nilay Gibbs IG % 0.3 % Normal 0.0-0.5 [facility] Comment on above: Performed By: #### A MM #### [facility] [address] [place] [address] Dr. Nilay Gibbs LYMPH # 1.7 103/ul Normal 1.2-3.8 [facility] Comment on above: Performed By: #### A MM #### [facility] [address] [place] [address] Dr. Nilay Gibbs Lymphocytes/100 WBC (Bld) 14.5 % Critically low 20.5-60.0 [facility] Comment on above: Performed By: #### A MM #### [facility] [address] [place] [address] Dr. Nilay Gibbs MANUAL DIFF REQ NO Normal [facility] Comment on above: Performed By: #### A MM #### [facility] [address] [address] [address] Nilay Gibbs MCH (RBC) [Entitic mass] 29.2 pg Normal 25.9-34.0 [facility] Comment on above: Performed By: #### A MM #### [facility] [address] [place] [address] Dr. Nilay Gibbs MCHC (RBC) [Mass/Vol] 33.3 g/dL Normal 29.9-35.2 [facility] Comment on above: Performed By: #### A MM #### [facility] [address] [place] [address] Dr. Nilay Gibbs MCV (RBC) [Entitic vol] 87.5 fL Normal 80.0-94.0 [facility] Comment on above: Performed By: #### A MM #### [facility] [address] [place] [address] Dr. Nilay Gibbs MONO # 1.3 103/ul Critically high 0.3-0.8 [facility] Comment on above: Performed By: #### A MM #### [facility] [address] [place] [address] Dr. Nilay Gibbs Monocytes/100 WBC (Bld) 10.9 % Normal 1.7-12.0 [facility] Comment on above: Performed By: #### A MM #### [facility] [address] [place] [address] Dr. Nilay Gibbs NEUT # 8.7 103/ul Critically high 1.4-6.5 [facility] Comment on above: Performed By: #### A MM #### [facility] [address] [place] [address] Dr. Nilay Gibbs Neutrophils/100 WBC (Bld) 73.8 % Normal 43.0-75.0 [facility] Comment on above: Performed By: #### A MM #### [facility] [address] [place] [address] Dr. Nilay Gibbs Platelet mean volume (Bld) [Entitic vol] 10.9 fL Normal 9.5-13.5 [facility] Comment on above: Performed By: #### A MM #### [facility] [address] [address] [address] Nilay Gibbs PLT 171 103/ul Normal 150-450 [facility] Comment on above: Performed By: #### A MM #### [facility] [address] [address] [address] Nilay Gibbs RBC 4.49 106/ul Critically low 4.70-6.10 [facility] Comment on above: Performed By: #### A MM #### [facility] [address] [address] [address] Nilay Gibbs WBC 11.7 103/ul Critically high 4.0-11.0 [facility] Comment on above: Performed By: #### A MM #### [facility] [address] [place] [address] Dr. Nilay Gibbs CRPon 06-20-2022 CRP 25.4 mg/dL Critically high <=1.0 [facility] Comment on above: Performed By: #### C RP, CMP #### [facility] [address] [address] [address] Nilay Gibbs CULTURE BLOODon 06-20-2022 Microscopic examination of blood, culture Culture Observations: NO GROWTH AT 5 DAYS. Normal [facility] Comment on above: Performed By: #### C MP #### [facility] [address] [place] [address] Dr. Nilay Gibbs Microscopic examination of blood, culture Culture Observations: NO GROWTH AT 5 DAYS. Normal [facility] Comment on above: Performed By: #### C MP #### [facility] [address] [place] [address] Dr. Nilay Gibbs LACTATE/LACTIC ACIDon 2022 Lactate [Moles/Vol] 0.7 mmol/L Normal 0.4-2.0 [facility] Comment on above: Performed By: #### A MM #### [facility] [address] [place] [address] Dr. Nilay Gibbs PROF 14(COMP METB)on 023 Albumin [Mass/Vol] 3.8 g/dL Normal 3.4-5.0 [facility] Comment on above: Performed By: #### C RP, CMP #### [facility] [address] [place] [address] Dr. Nilay Gibbs Albumin/Globulin [Mass ratio] 1.1 {ratio} Normal [facility] Comment on above: Performed By: #### C RP, CMP #### [facility] [address] [place] [address] Dr. Nilay Gibbs ALP [Catalytic activity/Vol] 85 U/L Normal 46-116 [facility] Comment on above: Performed By: #### C RP, CMP #### [facility] [address] [place] [address] Dr. Nilay Gibbs ALT [Catalytic activity/Vol] 29 U/L Normal 16-63 [facility] Comment on above: Performed By: #### C RP, CMP #### [facility] [address] [place] [address] Dr. Nilay Gibbs Anion gap [Moles/Vol] 15.2 mmol/L Normal [facility] Comment on above: Performed By: #### C RP, CMP #### [facility] [address] [place] [address] Dr. Nilay Gibbs AST [Catalytic activity/Vol] 20 U/L Normal 15-37 [facility] Comment on above: Performed By: #### C RP, CMP #### [facility] [address] [place] [address] Dr. Nilay Gibbs Bilirubin [Mass/Vol] 1.1 mg/dL Critically high 0.2-1.0 [facility] Comment on above: Performed By: #### C RP, CMP #### [facility] [address] [place] [address] Dr. Nilay Gibbs Calcium [Mass/Vol] 9.4 mg/dL Normal 8.5-10.1 [facility] Comment on above: Performed By: #### C RP, CMP #### [facility] [address] [place] [address] Dr. Nilay Gibbs Chloride [Moles/Vol] 99 mmol/L Normal 98-107 [facility] Comment on above: Performed By: #### C RP, CMP #### [facility] [address] [place] [address] Dr. Nilay Gibbs CO2 [Moles/Vol] 25.7 mmol/L Normal 21.0-32.0 [facility] Comment on above: Performed By: #### C RP, CMP #### [facility] [address] [address] [address] Nilay Gibbs Creatinine [Mass/Vol] 1.32 mg/dL Critically high 0.70-1.30 [facility] Comment on above: Performed By: #### C RP, CMP #### [facility] [address] [place] [address] Dr. Nilay Gibbs EGFR-AF OMANI >60 Normal >=60 [facility] Comment on above: Performed By: #### C RP, CMP #### [facility] [address] [place] [address] Dr. Nilay Gibbs EGFR-NON AF OMANI >60 Normal >=60 [facility] Comment on above: Performed By: #### C RP, CMP #### [facility] [address] [place] [address] Dr. Nilay Gibbs Globulin (S) [Mass/Vol] 3.6 g/dL Normal [facility] Comment on above: Performed By: #### C RP, CMP #### [facility] [address] [place] [address] Dr. Nilay Gibbs Glucose [Mass/Vol] 106 mg/dL Normal 74-106 [facility] Comment on above: Performed By: #### C RP, CMP #### [facility] [address] [address] [address] Nilay Gibbs Potassium [Moles/Vol] 3.9 mmol/L Normal 3.5-5.1 [facility] Comment on above: Performed By: #### C RP, CMP #### [facility] [address] [place] [address] Dr. Nilay Gibbs Protein [Mass/Vol] 7.4 g/dL Normal 6.4-8.2 [facility] Comment on above: Performed By: #### C RP, CMP #### [facility] [address] [place] [address] Dr. Nilay Gibbs Sodium [Moles/Vol] 136 mmol/L Normal 136-145 [facility] Comment on above: Performed By: #### C RP, CMP #### [facility] [address] [place] [address] Dr. Nilay Gibbs Urea nitrogen [Mass/Vol] 10.0 mg/dL Normal 7.0-18.0 [facility] Comment on above: Performed By: #### C RP, CMP #### [facility] [address] [place] [address] Dr. Nilay Gibbs Urea nitrogen/Creatinine [Mass ratio] 7.6 mg/mg Normal [facility] Comment on above: Performed By: #### C RP, CMP #### [facility] [address] [place] [address] Dr. Nilay Gibbs SED RATE [facility] 2022 SED RATE 46 mm/hr Critically high <=15 [facility] Comment on above: Performed By: #### S EDR #### [facility] [address] [place] [address] Dr. Nilay Gibbs Covid-19 PCR ([facility])on SARS-CoV-2 (COVID-19) RNA TALHA+probe Ql (Unsp spec) Not detected Normal NOT DETECTED [facility] Comment on above: Result Comment: When [...] for this test is supported by the [place] of Health and Human Service's declaration that [...] used). Performed By: #### A MM #### [facility] [address] [place] [address] Dr. Nilay Gibbs INFL[facility]ENZA A [facility] Normal [facility] Comment on above: Result Comment: Nega tive for Flu A protein angiten. Infection due to Flu A cannot be ruled out. Flu A angiten in the sample may be below the detection limit of the test. Performed By: #### A MM #### [facility] [address] [place] [address] Dr. Nilay Gibbs INFLUBNEGH SEE BELOW Normal [facility] Comment on above: Result Comment: Nega tive for Flu B protein antigen. Infection due to Flu B cannot be ruled out. Flu B antigen in the sample may be below the detection limit of the test. Performed By: #### A MM #### [facility] [address] [place] [address] Dr. Nilay Gibbs INFLUENZA A AG Negative Normal NEGATIVE SEE COMMENT [facility] Comment on above: Performed By: #### A MM #### [facility] [address] [place] [address] Dr. Nilay Gibbs INFLUENZA B AG Negative Normal NEGATIVE SEE COMMENT [facility] Comment on above: Performed By: #### A MM #### [facility] [address] [place] [address] Dr. Nilay Gibbs INTERNAL CONTROLS Within Normal Limits Normal Wi thin Normal Limits [facility] Comment on above: Performed By: #### A MM #### [facility] [address] [place] [address] Dr. Nilay Gibbs Cholesterol [Mass/volume] in Serum or PlasmaOrdered By: Adam Young on 12-08-2021 Cholesterol [Mass/Vol] 205 mg/dL 140-200 [facility] Comment on above: Chol less than 200 m g/dl low riskChol 201-239 mg/dl borderline riskChol 240 mg/dl and greater high risk Cholesterol in LDL Calc [Mas s/Vol]Ordered By: Adam Young on 12-08-2021 Cholesterol in LDL [Mass/Vol] 120 mg/dL 0-100 [facility] Comment on above: LDL ATP III CLASSIFI CATIONLDL less than 100 mg/dL OptimalLDL 100-129 mg/dL Near or above optimalLDL 130-159 mg/dL Borderline highLDL 160-189 mg/dL HighLDL greater than 189 mg/dL Very high Cholesterol in VLDL Calc [Ma ss/Vol]Ordered By: Adam Young on 12-08-2021 Cholesterol in VLDL [Mass/Vol] 37 mg/dL [facility] No Panel InformationOrdered By: Adam Young on 12-08-2021 25-Hydroxy Vitamin D Total 50.6 ng/mL 30-100 [facility] Comment on above: VITAMIN D STATUS 25( OH)VITAMIN D RANGE (ng/mL) Deficient <20 Insufficient 20 to <30Sufficient 30 to 100Reference: Harpal MF,[place] SENIOR, Dayron WAN, et al. Evaluation,treatment, and prevention of vitamin D deficiency; an Endocrine Society clinical practice guideline. JCEM. 2010; 96(7):1911-30. Serum or plasma high density lipoprotein (HDL) cholesterol measurementOrdered By: Adam Young on 12-08-2021 Cholesterol in HDL [Mass/Vol] 47 mg/dL 29-71 [facility] Comment on above: HDL CHOL ATP-III CLA SSIFICATION Cardiovascular RiskHDL > or equal to 60 mg/dL LOWHDL < 40 mg/dL HIGH Serum or plasma total choles terol/high density lipoprotein (HDL) cholesterol mass ratOrdered By: Adam Young on 12-08-2021 Cholesterol.total/Ch olesterol in HDL [Mass ratio] 4.4 {ratio} <5.0 [facility] TSH DL <= 0.005 mIU/L QnOrde red By: Adam Young on 12-08-2021 TSH Qn 0.75 m[IU]/L 0.45-5.33 [facility] Triglyceride [Mass/volume] i n Serum or PlasmaOrdered By: Adam Young on 12-08-2021 Triglyceride [Mass/Vol] 188 mg/dL 35-149 [facility] Comment on above: TRIG ATP III CLASSIF ICATIONTRIG less than 150 mg/dL NormalTRIG 150-199 mg/dL Borderline highTRIG 200-500 mg/dL High TRIG greater than 500 mg/dL Very highStandard traceable to the Center for Disease Conrtrol and Prevention (CDC) test method. Covid-19 PCR ([facility])on SARS-CoV-2 (COVID-19) RNA TALHA+probe Ql (Unsp spec) Not detected Normal NOT DETECTED [facility] Comment on above: Result Comment: When [...] for this test is supported by the [employer] of Health and Human Service's declaration that [...] used). Performed By: #### C MP #### [facility] [address] [place] [address] Dr. Nilay Gibbs ETHANOL (BLD ALC)on 12-08-19 22 Ethanol [Mass/Vol] 288 mg/dL Normal [facility] Comment on above: Performed By: #### C MP #### [facility] [address] [place] [address] Dr. Nilay Gibbs ALC NOTE NOTE: 80 mg/dl is th e legal limit for a blood alcohol level Normal [facility] Comment on above: Performed By: #### C MP #### [facility] [address] [place] [address] Dr. Nilay Gibbs Performed By: #### A MM #### [facility] [address] [place] [address] Dr. Nilay Gibbs Ethanol [Mass/Vol] 130 mg/dL Normal [facility] Comment on above: Performed By: #### A MM #### [facility] [address] [place] [address] Dr. Nilay Gibbs Ethanol [Mass/Vol] 196 mg/dL Normal [facility] Comment on above: Performed By: #### A MM #### [facility] [address] [place] [address] Dr. Nilay Gibbs ACETAMINOPHENon 12-06-2021 Acetaminophen [Mass/Vol] ug/mL Critically low 10.0-30.0 [facility] Comment on above: Performed By: #### A CET #### [facility] [address] [place] [address] Dr. Nilay Gibbs AMMONIAon 12-06-2021 Ammonia (P) [Moles/Vol] 22 umol/L Normal 11-32 [facility] Comment on above: Performed By: #### A MM #### [facility] [address] [place] [address] Dr. Nilay Gibbs CBC AUTO DIFFon 12-06-2021 BASO # 0.0 103/ul Normal 0.0-0.1 [facility] Comment on above: Performed By: #### A MM #### [facility] [address] [place] [address] Dr. Nilay Gibbs Basophils/100 WBC (Bld) 0.5 % Normal 0.2-2.0 [facility] Comment on above: Performed By: #### A MM #### [facility] [address] [place] [address] Dr. Nilay Gibbs EO # 0.1 103/ul Normal 0.0-0.7 [facility] Comment on above: Performed By: #### A MM #### [facility] [address] [place] [address] Dr. Nilay Gibbs Eosinophils/100 WBC (Bld) 1.0 % Normal 0.9-7.0 [facility] Comment on above: Performed By: #### A MM #### [facility] [address] [place] [address] Dr. Nilay Gibbs Erythrocyte distribution width (RBC) [Ratio] 12.9 % Normal 11.0-15.0 [facility] Comment on above: Performed By: #### A MM #### [facility] [address] [place] [address] Dr. Nilay Gibbs Hematocrit (Bld) [Volume fraction] 40.5 % Critically low 42.0-54.0 [facility] Comment on above: Performed By: #### A MM #### [facility] [address] [place] [address] Dr. Nilay Gibbs Hemoglobin (Bld) [Mass/Vol] 13.9 g/dL Critically low 14.0-18.0 [facility] Comment on above: Performed By: #### A MM #### [facility] [address] [place] [address] Dr. Nilay Gibbs IG # 0.02 10e3/ul Normal 0.00-0.03 [facility] Comment on above: Performed By: #### A MM #### [facility] [address] [place] [address] Dr. Nilay Gibbs IG % 0.3 % Normal 0.0-0.5 [facility] Comment on above: Performed By: #### A MM #### [facility] [address] [place] [address] Dr. Nilay Gibbs LYMPH # 2.7 103/ul Normal 1.2-3.8 [facility] Comment on above: Performed By: #### A MM #### [facility] [address] [place] [address] Dr. Nilay Gibbs Lymphocytes/100 WBC (Bld) 45.2 % Normal 20.5-60.0 [facility] Comment on above: Performed By: #### A MM #### [facility] [address] [place] [address] Dr. Nilay Gibbs MANUAL DIFF REQ NO Normal [facility] Comment on above: Performed By: #### A MM #### [facility] [address] [place] [address] Dr. Nilay Gibbs MCH (RBC) [Entitic mass] 29.8 pg Normal 25.9-34.0 [facility] Comment on above: Performed By: #### A MM #### [facility] [address] [place] [address] Dr. Nilay Gibbs MCHC (RBC) [Mass/Vol] 34.3 g/dL Normal 29.9-35.2 [facility] Comment on above: Performed By: #### A MM #### [facility] [address] [place] [address] Dr. Nilay Gibbs MCV (RBC) [Entitic vol] 86.9 fL Normal 80.0-94.0 [facility] Comment on above: Performed By: #### A MM #### [facility] [address] [place] [address] Dr. Nilay Gibbs MONO # 0.4 103/ul Normal 0.3-0.8 [facility] Comment on above: Performed By: #### A MM #### [facility] [address] [place] [address] Dr. Nilay Gibbs Monocytes/100 WBC (Bld) 6.3 % Normal 1.7-12.0 [facility] Comment on above: Performed By: #### A MM #### [facility] [address] [place] [address] Dr. Nilay Gibbs NEUT # 2.7 103/ul Normal 1.4-6.5 [facility] Comment on above: Performed By: #### A MM #### [facility] [address] [place] [address] Dr. Nilay Gibbs Neutrophils/100 WBC (Bld) 46.7 % Normal 43.0-75.0 [facility] Comment on above: Performed By: #### A MM #### [facility] [address] [place] [address] Dr. Nilay Gibbs Platelet mean volume (Bld) [Entitic vol] 10.4 fL Normal 9.5-13.5 [facility] Comment on above: Performed By: #### A MM #### [facility] [address] [address] [address] Nilay Gibbs PLT 237 103/ul Normal 150-450 [facility] Comment on above: Performed By: #### A MM #### [facility] [address] [address] [address] Nilay Gibbs RBC 4.66 106/ul Critically low 4.70-6.10 [facility] Comment on above: Performed By: #### A MM #### [facility] [address] [address] [address] Nilay Gibbs WBC 5.9 103/ul Normal 4.0-11.0 [facility] Comment on above: Performed By: #### A MM #### [facility] [address] [place] [address] Dr. Nilay Gibbs DRUG SCREEN RAPID (URINE)on 12-06-2021 AMP Negative Normal NEGATIVE [facility] Comment on above: Performed By: #### D RUGRPD #### [facility] [address] [place] [address] Dr. Nilay Gibbs BAR Negative Normal NEGATIVE [facility] Comment on above: Performed By: #### D RUGRPD #### [facility] [address] [place] [address] Dr. Nilay Gibbs BUP Negative Normal NEGATIVE [facility] Comment on above: Performed By: #### D RUGRPD #### [facility] [address] [place] [address] Dr. Nilay Gibbs BZO Positive Abnormal NEGATIVE [facility] Comment on above: Performed By: #### D RUGRPD #### [facility] [address] [place] [address] Dr. Nilay Gibbs ROQUE Negative Normal NEGATIVE [facility] Comment on above: Performed By: #### D RUGRPD #### [facility] [address] [place] [address] Dr. Nilay Gibbs CUT-OFFS SEE BELOW Normal [facility] Comment on above: Result Comment: AMP [...] ng/mL Performed By: #### D RUGRPD #### [facility] [address] [place] [address] Dr. Nilay Gibbs DRUG CUT HEADER DRUG CLASS TEST SYST EM CUT-OFF CONCENTRATIONS ARE FOLLOWS: Normal [facility] Comment on above: Performed By: #### D RUGRPD #### [facility] [address] [place] [address] Dr. Nilay Gibbs mAMP Negative Normal NEGATIVE [facility] Comment on above: Performed By: #### D RUGRPD #### [facility] [address] [place] [address] Dr. Nilay Gibbs MTD Negative Normal NEGATIVE [facility] Comment on above: Performed By: #### D RUGRPD #### [facility] [address] [place] [address] Dr. Nilay Gibbs OPI Negative Normal NEGATIVE [facility] Comment on above: Performed By: #### D RUGRPD #### [facility] [address] [place] [address] Dr. Nilay Gibbs OXY Negative Normal NEGATIVE [facility] Comment on above: Performed By: #### D RUGRPD #### [facility] [address] [place] [address] Dr. Nilay Gibbs PCP Negative Normal NEGATIVE [facility] Comment on above: Performed By: #### D RUGRPD #### [facility] [address] [place] [address] Dr. Nilay Gibbs PPX Negative Normal NEGATIVE [facility] Comment on above: Performed By: #### D RUGRPD #### [facility] [address] [place] [address] Dr. Nilay Gibbs TCA Negative Normal NEGATIVE [facility] Comment on above: Performed By: #### D RUGRPD #### [facility] [address] [place] [address] Dr. Nilay Gibbs THC Negative Normal NEGATIVE [facility] Comment on above: Performed By: #### D RUGRPD #### [facility] [address] [place] [address] Dr. Nilay Gibbs ETHANOL (BLD ALC)on 12-07-19 22 ALC NOTE NOTE: 80 mg/dl is th e legal limit for a blood alcohol level Normal [facility] Comment on above: Performed By: #### C MP #### [facility] [address] [place] [address] Dr. Nilay Gibbs Ethanol [Mass/Vol] 336 mg/dL Normal [facility] Comment on above: Performed By: #### C MP #### [facility] [address] [place] [address] Dr. Nilay Gibbs PROF 14(COMP METB)on 022 Albumin [Mass/Vol] 4.2 g/dL Normal 3.4-5.0 [facility] Comment on above: Performed By: #### C MP #### [facility] [address] [place] [address] Dr. Nilay Gibbs Albumin/Globulin [Mass ratio] 1.3 {ratio} Normal [facility] Comment on above: Performed By: #### C MP #### [facility] [address] [place] [address] Dr. Nilay Gibbs ALP [Catalytic activity/Vol] 104 U/L Normal 46-116 [facility] Comment on above: Performed By: #### C MP #### [facility] [address] [place] [address] Dr. Nilay Gibbs ALT [Catalytic activity/Vol] 41 U/L Normal 16-63 [facility] Comment on above: Performed By: #### C MP #### [facility] [address] [place] [address] Dr. Nilay Gibbs Anion gap [Moles/Vol] 11.5 mmol/L Normal [facility] Comment on above: Performed By: #### C MP #### [facility] [address] [place] [address] Dr. Nilay Gibbs AST [Catalytic activity/Vol] 37 U/L Normal 15-37 [facility] Comment on above: Performed By: #### C MP #### [facility] [address] [address] [address] Nilay Gibbs Bilirubin [Mass/Vol] 0.2 mg/dL Normal 0.2-1.0 [facility] Comment on above: Performed By: #### C MP #### [facility] [address] [place] [address] Dr. Nilay Gibbs Calcium [Mass/Vol] 8.6 mg/dL Normal 8.5-10.1 [facility] Comment on above: Performed By: #### C MP #### [facility] [address] [address] [address] Nilay Gibbs Chloride [Moles/Vol] 97 mmol/L Critically low 98-107 [facility] Comment on above: Performed By: #### C MP #### [facility] [address] [place] [address] Dr. Nilay Gibbs CO2 [Moles/Vol] 26.0 mmol/L Normal 21.0-32.0 [facility] Comment on above: Performed By: #### C MP #### [facility] [address] [address] [address] Nilay Gibbs Creatinine [Mass/Vol] 1.47 mg/dL Critically high 0.70-1.30 [facility] Comment on above: Performed By: #### C MP #### [facility] [address] [address] [address] Nilay Gibbs EGFR-AF OMANI >60 Normal >=60 [facility] Comment on above: Performed By: #### C MP #### [facility] [address] [place] [address] Dr. Nilay Gibbs EGFR-NON AF OMANI 56 mL/min/1.73m2 Critically low >=60 [facility] Comment on above: Performed By: #### C MP #### [facility] [address] [address] [address] Nilay Gibbs Globulin (S) [Mass/Vol] 3.2 g/dL Normal [facility] Comment on above: Performed By: #### C MP #### [facility] [address] [address] [address] Nilay Gibbs Glucose [Mass/Vol] 117 mg/dL Critically high 74-106 [facility] Comment on above: Performed By: #### C MP #### [facility] [address] [address] [address] Nilay Gibbs Potassium [Moles/Vol] 3.5 mmol/L Normal 3.5-5.1 [facility] Comment on above: Performed By: #### C MP #### [facility] [address] [address] [address] Nilay Gibbs Protein [Mass/Vol] 7.4 g/dL Normal 6.4-8.2 [facility] Comment on above: Performed By: #### C MP #### [facility] [address] [address] [address] Nilay Gibbs Sodium [Moles/Vol] 131 mmol/L Critically low 136-145 [facility] Comment on above: Performed By: #### C MP #### [facility] [address] [address] [address] Nilay Gibbs Urea nitrogen [Mass/Vol] 14.0 mg/dL Normal 7.0-18.0 [facility] Comment on above: Performed By: #### C MP #### [facility] [address] [address] [address] Nilay Gibbs Urea nitrogen/Creatinine [Mass ratio] 9.5 mg/mg Normal [facility] Comment on above: Performed By: #### C MP #### [facility] [address] [address] [address] Nilay Gibbs SALICYLATEon 12-06-2021 SALICYLATE <2.8 Normal <=19.9 [facility] Comment on above: Performed By: #### A MM #### [facility] [address] [address] [address] Nilay Gibbs MRI Shoulder w/o Lefton [...] by Stephen Ware on 11/11/2021 0955 Normal [facility] Livestock Inspector Activated partial thrombopla stin time (aPTT) in platelet poor plasma by coagulation aOrdered By: Kristal Goldberg on 09-27-2021 aPTT Coag (PPP) [Time] 34.7 s 25.1-36.5 [facility] Albumin [Mass/volume] in Ser um or PlasmaOrdered By: Kristal Goldberg on 09-27-2021 Albumin [Mass/Vol] 4.1 g/dL 3.2-5.5 [facility] Basophils Auto (Bld) [#/Vol] Ordered By: Kristal Goldberg on 09-27-2021 Basophils (Bld) [#/Vol] 0.0 10*3/uL 0.0-0.2 [facility] Basophils/100 WBC Auto (Bld) Ordered By: Kristal Goldberg on 09-27-2021 Basophils/100 WBC (Bld) 0.3 % . [facility] Bilirubin Auto test strip Ql (U)Ordered By: Kristal Goldberg on 09-27-2021 Bilirubin Ql (U) Negative Negative [facility] Blood hemoglobin measurement (mass/volume)Ordered By: Kristal Goldberg on 09-27-2021 Hemoglobin (Bld) [Mass/Vol] 13.6 g/dL 13.0-17.0 [facility] Blood leukocytes automated c ount (number/volume)Ordered By: Kristal Goldberg on 09-27-2021 WBC (Bld) [#/Vol] 5.7 10*3/uL 4.5-11.0 [facility] CBC AUTO DIFFon 09-27-2021 BASO # 0.0 103/ul Normal 0.0-0.1 [facility] Comment on above: Performed By: #### A MM #### [facility] [address] [place] [address] Dr. Nilay Gibbs Basophils/100 WBC (Bld) 0.5 % Normal 0.2-2.0 [facility] Comment on above: Performed By: #### A MM #### [facility] [address] [place] [address] Dr. Nilay Gibbs EO # 0.1 103/ul Normal 0.0-0.7 [facility] Comment on above: Performed By: #### A MM #### [facility] [address] [address] [address] Nilay Gibbs Eosinophils/100 WBC (Bld) 1.6 % Normal 0.9-7.0 [facility] Comment on above: Performed By: #### A MM #### [facility] [address] [address] [address] Nilay Gibbs Erythrocyte distribution width (RBC) [Ratio] 14.0 % Normal 11.0-15.0 [facility] Comment on above: Performed By: #### A MM #### [facility] [address] [place] [address] Dr. Nilay Gibbs Hematocrit (Bld) [Volume fraction] 40.2 % Critically low 42.0-54.0 [facility] Comment on above: Performed By: #### A MM #### [facility] [address] [place] [address] Dr. Nilay Gibbs Hemoglobin (Bld) [Mass/Vol] 13.7 g/dL Critically low 14.0-18.0 [facility] Comment on above: Performed By: #### A MM #### [facility] [address] [place] [address] Dr. Nilay Gibbs IG # 0.01 10e3/ul Normal 0.00-0.03 [facility] Comment on above: Performed By: #### A MM #### [facility] [address] [place] [address] Dr. Nilay Gibbs IG % 0.2 % Normal 0.0-0.5 [facility] Comment on above: Performed By: #### A MM #### [facility] [address] [place] [address] Dr. Nilay Gibbs LYMPH # 2.1 103/ul Normal 1.2-3.8 [facility] Comment on above: Performed By: #### A MM #### [facility] [address] [place] [address] Dr. Nilay Gibbs Lymphocytes/100 WBC (Bld) 37.1 % Normal 20.5-60.0 [facility] Comment on above: Performed By: #### A MM #### [facility] [address] [place] [address] Dr. Nilay Gibbs MANUAL DIFF REQ NO Normal [facility] Comment on above: Performed By: #### A MM #### [facility] [address] [place] [address] Dr. Nilay Gibbs MCH (RBC) [Entitic mass] 30.1 pg Normal 25.9-34.0 [facility] Comment on above: Performed By: #### A MM #### [facility] [address] [place] [address] Dr. Nilay Gibbs MCHC (RBC) [Mass/Vol] 34.1 g/dL Normal 29.9-35.2 [facility] Comment on above: Performed By: #### A MM #### [facility] [address] [place] [address] Dr. Nilay Gibbs MCV (RBC) [Entitic vol] 88.4 fL Normal 80.0-94.0 [facility] Comment on above: Performed By: #### A MM #### [facility] [address] [address] [address] Nilay Gibbs MONO # 0.4 103/ul Normal 0.3-0.8 [facility] Comment on above: Performed By: #### A MM #### [facility] [address] [place] [address] Dr. Nilay Gibbs Monocytes/100 WBC (Bld) 7.2 % Normal 1.7-12.0 [facility] Comment on above: Performed By: #### A MM #### [facility] [address] [place] [address] Dr. Nilay Gibbs NEUT # 3.1 103/ul Normal 1.4-6.5 [facility] Comment on above: Performed By: #### A MM #### [facility] [address] [place] [address] Dr. Nilay Gibbs Neutrophils/100 WBC (Bld) 53.4 % Normal 43.0-75.0 [facility] Comment on above: Performed By: #### A MM #### [facility] [address] [place] [address] Dr. Nilay Gibbs Platelet mean volume (Bld) [Entitic vol] 10.3 fL Normal 9.5-13.5 [facility] Comment on above: Performed By: #### A MM #### [facility] [address] [place] [address] Dr. Nilay Gibbs PLT 254 103/ul Normal 150-450 [facility] Comment on above: Performed By: #### A MM #### [facility] [address] [place] [address] Dr. Nilay Gibbs RBC 4.55 106/ul Critically low 4.70-6.10 [facility] Comment on above: Performed By: #### A MM #### [facility] [address] [place], [place] [address] Dr. Nilay Gibbs WBC 5.7 103/ul Normal 4.0-11.0 [facility] Comment on above: Performed By: #### A MM #### [facility] [address] [place], [place] [address] HEAD WO CONon [...] RUFINA MARIN Date: 2021-09-27 10:27 Normal [facility] CTA HEAD WO W CONon 09-28-19 CTA HEAD WO W CON CTA HEAD [...] by: NEL KING Date: 2021-09-27 12:19 Normal [facility] CTA NECK WO W CONon 09-28-19 22 [...] NEL KING Date: 2021-09-27 12:06 Normal [facility] Creatine kinase [Enzymatic a ctivity/volume] in Serum or PlasmaOrdered By: Kristal Goldberg on 09-27-2021 CK [Catalytic activity/Vol] 181 U/L 22-269 [facility] Creatinine and Glomerular fi ltration rate.predicted panel (S/P/Bld)Ordered By: Kristal Goldberg on 09-27-2021 Creatinine [Mass/Vol] 1.36 mg/dL 0.64-1.27 [facility] Eosinophils Auto (Bld) [#/Vo l]Ordered By: Kristal Goldberg on 09-27-2021 Eosinophils (Bld) [#/Vol] 0.1 10*3/uL 0.0-0.45 [facility] Eosinophils/100 WBC Auto (Bl d)Ordered By: Kristal Goldberg on 09-27-2021 Eosinophils/100 WBC (Bld) 1.2 % . [facility] Erythrocyte distribution wid th Auto (RBC) [Ratio]Ordered By: Kristal Goldberg on 09-27-2021 Erythrocyte distribution width (RBC) [Ratio] 14.5 % 12.0-14.8 [facility] Estimated glomerular filtrat ion rate (GFR) non- AmericanOrdered By: Kristal Goldberg on 09-27-2021 GFR/1.73 sq M.predicted among non-blacks MDRD (S/P/Bld) [Vol rate/Area] > 60 mL/Min [facility] Globulin Calc (S) [Mass/Vol] Ordered By: Kristal Goldberg on 09-27-2021 Globulin (S) [Mass/Vol] 2.4 g/dL [facility] Hematocrit Auto (Bld) [Volum e fraction]Ordered By: Kristal Goldberg on 09-27-2021 Hematocrit (Bld) [Volume fraction] 40.8 % 38.8-50.0 [facility] Ketones Auto test strip (U) [Mass/Vol]Ordered By: Kristal Goldberg on 09-27-2021 Ketones (U) [Mass/Vol] Negative Negative [facility] - CoagulationOrde red By: Kristal Goldberg on 09-27-2021 PT Coag (PPP) [Time] 11.8 s 9.0-12.9 [facility] - Hematology and Cell countsOrdered By: Kristal Goldberg on 09-27-2021 Nucleated RBC/100 WBC (Bld) [Ratio] 0.0 % 0-0.5 [facility] Lymphocytes Auto (Bld) [#/Vo l]Ordered By: Kristal Goldberg on 09-27-2021 Lymphocytes (Bld) [#/Vol] 1.8 10*3/uL 1.00-4.8 [facility] Lymphocytes/100 WBC Auto (Bl d)Ordered By: Kristal Goldberg on 09-27-2021 Lymphocytes/100 WBC (Bld) 31.2 % . [facility] MCH Auto (RBC) [Entitic mass ]Ordered By: Kristal Goldberg on 09-27-2021 MCH (RBC) [Entitic mass] 30.1 pg 27.5-35.2 [facility] MCHC Auto (RBC) [Mass/Vol]Or dered By: Kristal Goldberg on 09-27-2021 MCHC (RBC) [Mass/Vol] 33.4 g/dL 32.5-35.6 [facility] MCV Auto (RBC) [Entitic vol] Ordered By: Kristal Goldberg on 09-27-2021 MCV (RBC) [Entitic vol] 90.3 fL 83.5-101 [facility] Monocytes Auto (Bld) [#/Vol] Ordered By: Kristal Goldberg on 09-27-2021 Monocytes (Bld) [#/Vol] 0.3 10*3/uL 0.0-0.8 [facility] Monocytes/100 WBC Auto (Bld) Ordered By: Kristal Goldberg on 09-27-2021 Monocytes/100 WBC (Bld) 6.0 % . [facility] Neutrophils Auto (Bld) [#/Vo l]Ordered By: Kristal Goldberg on 09-27-2021 Neutrophils (Bld) [#/Vol] 3.5 10*3/uL 1.8-7.7 [facility] Neutrophils/100 WBC Auto (Bl d)Ordered By: Kristal Goldberg on 09-27-2021 Neutrophils/100 WBC (Bld) 61.3 % . [facility] No Panel InformationOrdered By: Kristal Goldberg on 09-27-2021 Estimated GFR () > 60 mL/Min [facility] Comment on above: GFR estimated refere nce range: According to KDOQI guidelines, <60 ml/min/1.73m2 is sufficient to diagnose a patient with chronic kidney disease. Pharmacy Creatinine Clearance (Chem 94.06 [facility] PROF CHEM 8 ([facility] MET)on Anion gap [Moles/Vol] 10.0 mmol/L Normal [facility] Comment on above: Performed By: #### C MP #### [facility] [address] [address] [address] Nilay Gibbs Calcium [Mass/Vol] 9.4 mg/dL Normal 8.5-10.1 [facility] Comment on above: Performed By: #### C MP #### [facility] [address] [address] [address] Nilay Gibbs Chloride [Moles/Vol] 103 mmol/L Normal 98-107 [facility] Comment on above: Performed By: #### C MP #### [facility] [address] [address] [address] Nilay Gibbs CO2 [Moles/Vol] 27.6 mmol/L Normal 21.0-32.[address] [facility] Comment on above: Performed By: #### C MP #### [facility] [address] [address] [address] Nilay Gibbs Creatinine [Mass/Vol] 1.39 mg/dL Critically high 0.70-1.30 [facility] Comment on above: Performed By: #### C MP #### [facility] [address] [address] [address] Nilay Gibbs EGFR-AF OMANI >60 Normal >=[address] [facility] Comment on above: Performed By: #### C MP #### [facility] [address] [address] [address] Nilay Gibbs EGFR-NON AF OMANI 60 mL/min/1.73m2 Normal >=60 [facility] Comment on above: Performed By: #### C MP #### [facility] [address] [address] [address] Nilay Gibbs Glucose [Mass/Vol] 115 mg/dL Critically high 74-106 [facility] Comment on above: Performed By: #### C MP #### [facility] [address] [address] [address] Nilay Gibbs Potassium [Moles/Vol] 3.6 mmol/L Normal 3.5-5.1 [facility] Comment on above: Performed By: #### C MP #### [facility] [address] [address] [address] Nilay Gibbs Sodium [Moles/Vol] 137 mmol/L Normal 136-145 [facility] Comment on above: Performed By: #### C MP #### [facility] [address] [address] [address] Nilay Gibbs Urea nitrogen [Mass/Vol] 17.0 mg/dL Normal 7.0-18.0 [facility] Comment on above: Performed By: #### C MP #### [facility] [address] [address] [address] Nilay Gibbs Urea nitrogen/Creatinine [Mass ratio] 12.2 mg/mg Normal [facility] Comment on above: Performed By: #### C MP #### [facility] [address] [address] [address] Nilay Gibbs PROTIMEon 09-27-2021 INR Coag (PPP) [Relative time] 0.99 {INR} Normal [facility] Comment on above: Performed By: #### P T, PTT #### [facility] [address] [address] [address] Nilay Gibbs INR GUIDELINES SEE BELOW Normal [facility] Comment on above: Result Comment: PETRONA RED INR: 2.0 - 3.0 CONDITIONS NOT LISTED BELOW 2.5 - 3.5 FOR PROSTHETIC HEART VALVE REPLACEMENT 2.5 - 3.5 RECURRENT THROMBOSIS Performed By: #### P T, PTT #### [facility] [address] [place] [address] Dr. Nilay Gibbs PT Coag (PPP) [Time] 10.7 s Normal 9.0-11.6 [facility] Comment on above: Performed By: #### P T, PTT #### [facility] [address] [place] [address] Dr. Nilay Gibbs PTTon 09-27-2021 aPTT Coag (Bld) [Time] 29.1 s Normal 22.3-36.2 [facility] Comment on above: Performed By: #### P T, PTT #### [facility] [address] [place] [address] Dr. Nilay Gibbs Platelet mean volume Auto (B ld) [Entitic vol]Ordered By: Kristal Goldberg on 09-27-2021 Platelet mean volume (Bld) [Entitic vol] 8.7 fL 6.6-10.1 [facility] Platelet poor plasma interna tional normalized ratio (INR) by coagulation assay (relatOrdered By: Kristal Goldberg on 09-27-2021 INR Coag (PPP) [Relative time] 1.1 {INR} [facility] Comment on above: INR Therapeutic Rang e [...] 09-27-2021 Platelets (Bld) [#/Vol] 240 10*3/uL 150-450 [facility] Protein Auto test strip (U) [Mass/Vol]Ordered By: Kristal Goldberg on 09-27-2021 Protein (U) [Mass/Vol] Negative Negative [facility] Protein [Mass/volume] in Ser um or PlasmaOrdered By: Kristal Goldberg on 09-27-2021 Protein [Mass/Vol] 6.5 g/dL 6.1-7.9 [facility] RBC Auto (Bld) [#/Vol]Ordere d By: Kristal Goldberg on 09-27-2021 RBC (Bld) [#/Vol] 4.52 10*6/uL 3.90-5.[address] [facility] Serum or plasma alanine marquez otransferase measurement without P-5'-P (enzymatic activiOrdered By: Kristal Goldberg on 09-27-2021 ALT No additional P-5'-P [Catalytic activity/Vol] 22 U/L 10-60 [facility] Serum or plasma albumin/glob ulin mass ratioOrdered By: Kristal Goldberg on 09-27-2021 Albumin/Globulin [Mass ratio] 1.7 {ratio} [facility] Serum or plasma alkaline kimi sphatase measurement (enzymatic activity/volume)Ordered By: Kristal Goldberg on 09-27-2021 ALP [Catalytic activity/Vol] 72 U/L 32-92 [facility] Serum or plasma aspartate am inotransferase measurement (enzymatic activity/volume)Ordered By: Kristal Goldberg on 09-27-2021 AST [Catalytic activity/Vol] 24 U/L 10-42 [facility] Serum or plasma calcium isabel urement (mass/volume)Ordered By: Kristal Goldberg on 09-27-2021 Calcium [Mass/Vol] 9.6 mg/dL 8.2-10.2 [facility] Serum or plasma chloride airam surement (moles/volume)Ordered By: Kristal Goldberg on 09-27-2021 Chloride [Moles/Vol] 98 mmol/L 95-114 [facility] Serum or plasma creatine kin ase MB (CKMB)/total creatine kinase (CK) ratio by calculaOrdered By: Kristal Goldberg on 09-27-2021 CK.MB Calc [Catalytic fraction] 1.7 % 0.00-2.50 [facility] Serum or plasma creatine kin ase MB measurement (mass/volume)Ordered By: Kristal Goldberg on 09-27-2021 CK.MB [Mass/Vol] 3.1 ng/mL 0.6-6.3 [facility] Serum or plasma glucose isabel urement (mass/volume)Ordered By: Kristal Goldberg on 09-27-2021 Glucose [Mass/Vol] 94 mg/dL 70-100 [facility] Comment on above: ADA recommended refe rence [...] on 09-27-2021 Potassium [Moles/Vol] 3.9 mmol/L 3.5-5.1 [facility] Serum or plasma sodium measu rement (moles/volume)Ordered By: Kristal Goldberg on 09-27-2021 Sodium [Moles/Vol] 135 mmol/L 136-146 [facility] Serum or plasma total biliru bin measurement (mass/volume)Ordered By: Kristal Goldberg on 09-27-2021 Bilirubin [Mass/Vol] 0.8 mg/dL 0.3-1.2 [facility] Serum or plasma total carbon dioxide measurement (moles/volume)Ordered By: Kristal Goldberg on 09-27-2021 CO2 [Moles/Vol] 24.8 mmol/L 22.0-30.0 [facility] Serum or plasma urea nitroge n measurement (mass/volume)Ordered By: Kristal Goldberg on 09-27-2021 Urea nitrogen [Mass/Vol] 13 mg/dL 9 [facility] TROPONIN, HIGH SENSITIVITYon 09-27-2021 HSTROP 4.5 pg/mL Normal 4.0-76.1 [facility] Comment on above: Result Comment: CUT- OFF POINTS HAVE BEEN ESTABLISHED BASED ON THE FOURTH UNIVERSAL DEFINITIONS OF MYOCARDIAL INFARCTION. THE UPPER REFERENCE LIMIT (URL) OF TROPONIN, DEFINED THE 99TH PERCENTILE OF cTnI DISTRIBUTION IN A REFERENCE POPULATION, HAS BEEN CONFIRMED THE DECISION THRESHOLD FOR MT DIAGNOSIS. Performed By: #### C MP #### [facility] [address] [address] [address] Nilay Gibbs Troponin I.cardiac [Mass/vol ume] in Serum or Plasma by High sensitivity methodOrdered By: Kristal Goldberg on 09-27-2021 Troponin I.cardiac High sensitivity method [Mass/Vol] < 3 pg/mL 0- [facility] Urine appearanceOrdered By: Kristal oGldberg on 09-27-2021 Appearance (U) Clear Clear [facility] Urine colorOrdered By: Aurora Goldberg on 09-27-2021 Color (U) Yellow Yellow [facility] Urine glucose measurement by automated test strip (mass/volume)Ordered By: Kristal Goldberg on 09-27-2021 Glucose Auto test strip (U) [Mass/Vol] Normal mg/dL Normal [facility] Urine hemoglobin detection b y automated test stripOrdered By: Kristal Goldberg on 09-27-2021 Hemoglobin Auto test strip Ql (U) Negative Negative [facility] Urine leukocyte esterase det ection by automated test stripOrdered By: Kristal Goldberg on 09-27-2021 Leukocyte esterase Auto test strip Ql (U) Negative Negative [facility] Urine nitrite detection by a utomated test stripOrdered By: Kristal Goldberg on 09-27-2021 Nitrite Auto test strip Ql (U) Negative Negative [facility] Urobilinogen Auto test strip (U) [Mass/Vol]Ordered By: Kristal Goldberg on 09-27-2021 Urobilinogen (U) [Mass/Vol] Normal mg/dL Normal [facility] pH Auto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 [address] [place] [address] Discharge Summary Signed Patient: Nick Wray MR#: [id number] : 1990 Acct:[id number] Age/Sex: 31 / M Adm Date: 2 Loc: Room: [address] [place] [address]: Adam Young MD Copies to: [...] called EMS and he was taken to [facility] and subsequently brought here.? He [...] is eating okay.? Rates his depression today /10 and anxiety /.? Says that most of his depression is [...] No activity restrictions. 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 (insert date/time here) Intake: (Insert date/time here) Please bring a copy of your photo ID, insurance card, and proof of household income.? Psychiatry: (Insert date/time here) Group: (Insert date/time here ) ) Documented By: Nicola Leyva MD 2 [id number] Signed By: <Electronically signed by Nicola Leyva MD> 12/10/21 1019 [facility] Work Phone: 1(965) 283-557710-11-2022 Progress note Author Nicola pelayo [facility] December 09, 2021 10:42am Note Date/Time December 09, 2021 8 :48am [facility] [address] [place] [address] Psychiatry Progress Note Signed Patient: Nick Wray MR#: [id number] : 1990 Acct:[id number] Age/Sex: 31 / M Adm Date: 2 Loc: Room: [address] [place] [address] Type : ADM IN Attending Dr: Adam [...] illness from him. He rates his depression 10 and anxiety 11/08. Says he is mostly having anxiety because [...] signed by Nicola Leyva MD> 12/09/21 1042 [facility] Work Phone: 1(840) 195-309410-10-2022 History and physical note Author Nicola pelayo [facility] December 08, 2021 1:32pm Note Date/Time December 08, 2021 1 2:43pm [facility] [address] [place] [address] Psychiatry H&P Signed Patient: Nick Wray MR#: [id number] : 1990 Acct:[id number] Age/Sex: 31 / M Adm Date: 2 Loc: Room: [address] [place] [address] Type: ADM IN Attending Dr: Adam Young [...] called EMS and he was taken to [place] [facility] and subsequently brought here. 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 Author Type: [...] BY: RT Kanchan(R) November 29, 2020 10:24 [id number] NoteHNO ID: [id number] Author: Felicitas Perez RDMS Service: Radiology Author Type: Financial Advisor Trainee Type: Progress Notes Filed: 08/19/2020 12:51 PM [...] Not applicable SIGNED BY: Felicitas Perez RDMS [facility] August 19, 2020 12:51 [id number] NoteHNO ID: [id number] Author: Britany Mccann (Rt) Service: Radiology Author Type: Personnel Research Psychologist Type: Progress Notes Filed: 04/02/2020 9:49 AM [...] BY: RT Ramy April 02, 2020 9:48 [facility] [id number] History of Past illness Narrative* Problem Noted Date Resolved Date Rheumatoid arthritis flare 04/25/201705/10 documented as of this encounter (statuses as of 08/05/2021) [place] [id number] History of Past illness Narrative* Problem Noted Date Resolved Date Rheumatoid arthritis flare 04/25/201705/10 documented as of this encounter (statuses as of 12/22/2021) [place] [id number] History of Past illness Narrative* Problem Noted Date Resolved Date Rheumatoid arthritis flare 04/25/201705/10 documented as of this encounter (statuses as of 01/01/2022) [place] [id number] History of Past illness Narrative* Problem Noted Date Resolved Date Rheumatoid arthritis flare 04/25/201705/10 documented as of this encounter (statuses as of 04/02/2022) [place] [address] History of Past illness Narrative* Problem Noted Date Resolved Date Rheumatoid arthritis flare 04/25/201705/10 documented as of this encounter (statuses as of 06/30/2022) [place] [address] History of Past illness Narrative* Problem Noted Date Diagnosed Date Resolved Date Rheumatoid arthritis flare 04/25/2017 0 05/10/2017 documented as of this encounter (statuses as of 11/14/2022) [place] [id number] History of Past illness Narrative* Problem Noted Date Diagnosed Date Resolved Date Rheumatoid arthritis flare 04/25/2017 0 05/10/2017 documented as of this encounter (statuses as of 11/14/2022) [facility] Diagnosis 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) documented in this encounter [facility] noteNo assessment information availableD[facility] Work Phone: Evaluation note* Diagnosis Onset Date Resolution Status Major depressive disorder, recurrent, moderate acute [facility] Work Phone: evaluation note* Diagnosis 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) [facility] Diagnosis Idiopathic chronic gout of multiple sites with tophus- Primary Chronic gouty arthropathy with tophus (tophi) Encounter for long-term (current) use of medications Encounter for long-term (current) use of other medications Stage 3 chronic kidney disease, unspecified whether stage 3a or 3b CKD (HCC) [facility] Diagnosis 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) [facility] Diagnosis 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) [facility] Diagnosis Other chronic pain- Primary documented in this encounter [facility] Additional Instructions Rest Apply ice to affected area Avoid electronics Follow-up with neurology on Wednesday Tylenol Motrin if needed for discomfort Return here if you develop any numbness, tingling, unilateral weakness, unsteady gait, confusion or any other concernsD[facility] Work Phone: Hospital Discharge instructions Additional Instructions Regular diet. No activity restrictions.[facility] Work Phone: Summary Purpose Family History Relationship Condition Age at Onset Recorded Date/T vish father Hypertension Unknown Ingrown nail Unknown Not Specified Hypertension Unknown brother Hypertension Unknown sister Hypertension Unknown Depression Unknown family member Gout Unknown Suicide Unknown Advance Directives Documents on File Type Date Recorded Patient Automation Lead Expl anation Advance Directive(s) 04/25/2017 12:32 PM Advance Directive Response Recorded Date/ Time Advance Directives No September 27 7:04pm Chief Complaint and Reason for Visit Chief Complaint sent by [facility]/blurry vision/head swell Chief Complaint sent by [facility]/blurry vision/head swell Major Depression Reason [...] Katie cruz DATE CREATED AUTHOR AUTHOR'S ORGANIZ ATRAMIREZ 11/30/2020 [facility] DATE CREATED AUTHOR AUTHOR'S ORGANIZ ATION 11/11/2021 [facility] DATE CREATED AUTHOR AUTHOR'S ORGANIZ ATION 08/07/2022 [facility] DATE CREATED AUTHOR AUTHOR'S ORGANIZ ATION 01/14/2023 [facility] EPIC DATE CREATED AUTHOR AUTHOR'S ORGANIZ ATION 2023 [facility] DATE CREATED AUTHOR AUTHOR'S ORGANIZ ATION [facility] DATE CREATED AUTHOR AUTHOR'S ORGANIZ ATION 03/09/2023 [facility] DATE CREATED AUTHOR AUTHOR'S ORGANIZ ATION 03/29/2023 [facility] Source Comments (unrecognize d section and content) In the event this informatio n is protected by the Federal Confidentiality of Alcohol and Drug Abuse Patient Records regulations: The Federal rules restrict any use of the information to criminally investigate or prosecute any alcohol or drug abuse patient.[facility] the event this information is protected by the Federal Confidentiality of Alcohol and Drug Abuse Patient Records regulations: The Federal rules restrict any use of the information to criminally investigate or prosecute any alcohol or drug abuse patient.[facility] Hospital[facility] the event this information is protected by the Federal Confidentiality of Alcohol and Drug Abuse Patient Records regulations: The Federal rules restrict any use of the information to criminally investigate or prosecute any alcohol or drug abuse patient.[facility] HospitalIn the event this information is protected by the Federal Confidentiality of Alcohol and Drug Abuse Patient Records regulations: The Federal rules restrict any use of the information to criminally investigate or prosecute any alcohol or drug abuse patient.[facility] HospitalIn the event this information is protected by the Federal Confidentiality of Alcohol and Drug Abuse Patient Records regulations: The Federal rules restrict any use of the information to criminally investigate or prosecute any alcohol or drug abuse patient.[facility] HospitalIn the event this information is protected by the Federal Confidentiality of Alcohol and Drug Abuse Patient Records regulations: The Federal rules restrict any use of the information to criminally investigate or prosecute any alcohol or drug abuse patient.[facility] HospitalIn the event this information is protected by the Federal Confidentiality of Alcohol and Drug Abuse Patient Records regulations: The Federal rules restrict any use of the information to criminally investigate or prosecute any alcohol or drug abuse patient.[facility] Care Teams (unrecognized sec tion and content) [employer] Relationship Specialty Start Date End Date Leydi [...] Young MD Admit Provider, Attending Provider Active [employer] Relationship Specialty Start Date End Date Leydi Aceves PCP - General Family Medicine 01/07/15 [employer] Relationship Specialty Start Date End Date Leydi Aceves PCP - General Family Medicine 01/07/15 [employer] Relationship Specialty Start Date End Date Leydi Aceves PCP - General Family Medicine 01/07/15 [employer] Relationship Specialty Start Date End Date Leydi Aceves PCP - General Family Medicine 01/07/15 [employer] Relationship Specialty Start Date End Date Leydi Aceves MD PCP - General Family Medicine 01/07/15 [employer] Relationship Specialty Start Date End Date Leydi Aceves MD PCP - General Family Medicine 01/07/15 [employer] Relationship Specialty Start Date End Date Leydi Aceves MD [address] [facility] [address] [place] [address] PCP - [facility] 07/29/22 Leydi Aceves MD [address] [facility] [address] [place] [address] PCP [facility] 05/30/22 [employer] Relationship Specialty Start Date End Date Leydi Aceves MD [address] [facility] [address] [place] [address] PCP - [facility] 07/29/22 Leydi Aceves MD [address] [facility] [address] [place] [address] PCP - [facility] 05/30/22 Goals (unrecognized section and content) Goals may be documented in a n alternate section Reason for Visit (unrecogniz ed section and content) Reason Comments Refill Request Reason Comments Follow Up Reason Comments Patient Request Reason Onset Date Comments Med Refill 04/05/2023 FOR RECORDS PERTAINING TO PATIENTS WHO ARE [...] BE BASED ON THE PRIMARY CLINICAL RECORDS. [employer] provides no warranty or guarantee of the accuracy or completeness of information in this document.
--- NOTE | 2023-04-20 20:22 | ECG_ITS ---
The 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
--- NOTE | 2023-04-20 20:27 | CT_ITS ---
The [address] [address] Patient Name: TRU CARDOZA MRN: [id number] date: 1990 Sex: M Assigned Patient Location: ER Current Patient Location: [facility] Accession/Order Number: [id number] Exam Date: 04/20/2023 21:10 Report Date: 04/20/2023 21:45 At the request of: KIRT ZAMBRANO Procedure: CT cervical spine wo con CT CERVICAL SPINE WITHOUT : 04/20/2023 9:10 PM EST HISTORY: Neck pain. TECHNIQUE: Thin section axial CT images were obtained from the foramen magnum to the T1 vertebral body. This CT exam was performed using one or more of the following dose reduction techniques: Automated exposure control, adjustment of the mA and/or kV according to patient size, or use of iterative reconstruction technique. Thin section coronal and sagittal images were reconstructed from the axial data set. All images were reviewed and interpreted. CONTRAST: None. COMPARISON: None. FINDINGS: There is no fracture or vertebral body height loss. There is no destructive osseous lesion. Normal anatomic alignment is maintained. There is no spondylolisthesis. There is no significant degenerative change. Osseous mineralization is within normal limits. The paraspinal soft tissues are unremarkable. There is no prevertebral soft tissue swelling. CT/CT cervical spine wo con IMPRESSION: No fracture or malalignment. Electronically authenticated by: RUSLAN DAS Date: 04/20/2023 21:45
--- NOTE | 2023-04-20 20:27 | CT_ITS ---
The [address] [address] Patient Name: TRU CARDOZA MRN: [id number] date: 1990 Sex: M Assigned Patient Location: ER Current Patient Location: Accession/Order Number: [id number] Exam Date: 04/20/2023 21:10 Report Date: 04/20/2023 21:42 At the request of: KIRT ZAMBRANO Procedure: CT head/brain wo con CT OF THE BRAIN WITHOUT CONTRAST: 04/20/2023 9:10 PM EST HISTORY: R41.82; altered mental status. TECHNIQUE: Contiguous axially collimated images were obtained through the intracranial compartment, from the vertex through the foramen magnum. Coronal and Sagittal reformatted images were prepared on a separate workstation and reviewed on the PACS for anatomic correlation. No contrast was administered. This CT exam was performed using one or more of the following dose reduction techniques: Automated exposure control, adjustment of the mA and/or kV according to patient size, or use of iterative reconstruction technique. Thin section coronal and sagittal images were reconstructed from the axial data set. All images were reviewed and interpreted. COMPARISON: CT brain without 09/27/2021 and 09/28/2022 FINDINGS: There is no intracranial hemorrhage or abnormal extra-axial fluid collection. To the extent of evaluated with noncontrast technique, there is no mass lesion appreciated. There is no mass-effect or shift of midline structures. The ventricles and CSF spaces are age appropriate. There is no evidence of hydrocephalus. There is no effacement of the basal cisterns. Segura white matter differentiation is well preserved throughout, without evidence of acute ischemia. There is no significant leukomalacia. The basal ganglia and thalami are unremarkable. The posterior fossa, brain stem, and fourth ventricle are normal. There is no tonsillar ectopy. The calvarium is intact, without destructive lesion or depressed fracture. The mastoid air cells are well-aerated. The paranasal sinuses are normally aerated. CT/CT head/brain wo con IMPRESSION: No acute or significant intracranial pathology. Electronically authenticated by: RUSLAN DAS Date: 04/20/2023 21:42
--- NOTE | 2023-04-20 20:27 | XR_ITS ---
The [address] [address] Patient Name: TRU CARDOZA MRN: [id number] date: 1990 Sex: M Assigned Patient Location: ER Current Patient Location: ER Accession/Order Number: [id number] Exam Date: 04/20/2023 21:10 Report Date: 04/20/2023 21:43 At the request of: KIRT ZAMBRANO Procedure: XR chest 1V SINGLE VIEW CHEST: 04/20/2023 9:10 PM EST CLINICAL HISTORY:Altered COMPARISONS: Portable chest 09/28/2022 TECHNIQUE: Single frontal view of the chest, utilizing portable technique. Portable radiography should be considered a technically compromised study. Strongly consider dedicated PA and lateral chest radiographs, as clinically indicated. FINDINGS: LINES AND TUBES: None appreciated. CARDIAC SILHOUETTE: Within normal limits. MEDIASTINAL AND HILAR CONTOUR: Within normal limits. PULMONARY PARENCHYMA AND PLEURA: Imaged lung keen are clear. No consolidation, edema, effusion, or pneumothorax. OSSEOUS STRUCTURES:Nothing significant. OTHER COMMENTS:None. XR/XR chest 1V IMPRESSION: Stable chest, with no acute radiographic findings. This report was generated with voice recognition software. Effort has been made to ensure accuracy of this report, however, occasional wording errors may persist. Please contact our office with any questions. Electronically authenticated by: RUSLAN DAS Date: 04/20/2023 21:43
--- NOTE | 2023-04-20 20:30 | ED.GENADUL1 ---
Documented by User: ISIS Robertson 04/20/23 21:55 HPI - General Adult General Chief complaint: Alcohol Stated complaint: ALCOHOL Time Seen by Provider: 04/20/23 20:13 History of Present Illness HPI narrative: Patient is a 33-year-old male who presents to the emergency department for possible alcohol/drug overdose. He is accompanied by his father who received a phone call from him around 6:45 PM this evening and the patient sounded intoxicated. Patient's father went to the home, he found the patient walking in the driveway altered. 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 Patient has recently had issues in his social life, he and his have been and there is a custody issue for their children. Patient also was found to be driving drunk last week. He has had an increase in intake and alcohol per his friend at bedside. Patient's friend and father are concerned that he may have potentially intentionally overdosed. He is prescribed pain medication for an extensive history of rheumatoid arthritis and gout. Patient is drowsy but able to transfer and answer some questions at time of initial interview. He maintained stable vital signs at this time. He denies taking any actions tonight to intentionally hurt himself. He will not discuss what he ingested today. Related Data Home Medications Medication Instructions Recorded Confirmed allopurinol 300 mg tablet 600 mg PO DAILY 08/31/22 02/20/23 alprazolam 0.5 mg tablet 0.5 mg PO TID PRN anxiety 08/31/22 02/20/23 amlodipine 10 mg tablet 10 mg PO QDAY 08/31/22 02/20/23 carvedilol 6.25 mg tablet 6.25 mg PO DAILY 08/31/22 02/20/23 celecoxib 100 mg capsule 100 mg PO DAILY PRN RA flare 08/31/22 02/20/23 clonidine HCl 0.1 mg tablet 0.1 mg PO BID 08/31/22 02/20/23 colchicine 0.6 mg tablet 0.6 mg PO .every other 08/31/22 02/20/23 quetiapine 50 mg tablet See Rx Instructions PO .hs 08/31/22 02/20/23 tramadol 50 mg tablet 50 mg PO Q6H PRN pain 08/31/22 02/20/23 gabapentin 300 mg capsule 300 mg PO TID 02/15/23 02/20/23 (Neurontin) cyclobenzaprine 10 mg tablet 10 mg PO TID PRN muscle spasm 03/06/23 03/06/23 Previous Rx's Medication Instructions Recorded doxycycline hyclate 100 mg tablet 100 mg PO BID 10 days #20 tabs 02/16/23 oxycodone-acetaminophen 5 mg-325 1 tab PO Q6H PRN pain (scale score 02/16/23 mg tablet (Percocet) 4-6) #10 tabs oxycodone-acetaminophen 5 mg-325 2 tab PO Q6H PRN pain (scale score 02/16/23 mg tablet (Percocet) 7-10) #10 tabs Allergies Allergy/AdvReac Type Severity Reaction Status Date / Time No Known Drug Allergies Allergy Verified 02/20/23 12:59 Review of Systems ROS Constitutional Denies: fever or chills Ears, nose, mouth, and throat Denies: throat pain or nasal congestion Cardiovascular Denies: chest pain Respiratory Denies: shortness of breath or cough Gastrointestinal Denies: nausea or vomiting Genitourinary Denies: painful urination Musculoskeletal Denies: back pain Integumentary/Breast Denies: rash Neurological Denies: headache Endocrine Denies: excessive urination PFSH PFSH Medical History Acute viral syndrome ?B34.9 - Viral infection, unspecified (ICD-10) Diarrhea ?R19.7 - Diarrhea, unspecified (ICD-10) Gouty arthritis ?M10.9 - Gout, unspecified (ICD-10) Rheumatoid arthritis flare ?M06.9 - Rheumatoid arthritis, unspecified (ICD-10) Polyarthralgia ?M25.50 - Pain in unspecified joint (ICD-10) Rheumatoid arthritis flare ?M06.9 - Rheumatoid arthritis, unspecified (ICD-10) Weakness ?R53.1 - Weakness (ICD-10) Mild shortness of breath ?R06.02 - Shortness of breath (ICD-10) Headache ?R51.9 - Headache, unspecified (ICD-10) Polyarthralgia ?M25.50 - Pain in unspecified joint (ICD-10) Flare of rheumatoid arthritis ?M06.9 - Rheumatoid arthritis, unspecified (ICD-10) Arthralgia ?M25.50 - Pain in unspecified joint (ICD-10) Drug-seeking behavior ?Z76.5 - Malingerer [conscious simulation] (ICD-10) Surgical History (Updated 02/14/23 @ 20:23 by Swathi Barkley RN) H/O shoulder surgery ?Z98.890 - Other specified postprocedural states (ICD-10) Social History Smoking status: Never smoker Highest level of school completed/degree received: Associate degree: occupational, technical, vocational program Exam Narrative Exam Narrative: Gen.: Awake, alert, in no distress Head: Normocephalic, atraumatic ENT: Moist mucous membranes Respiratory: No respiratory distress, lungs clear bilaterally Cardio: Tachycardia Gastrointestinal: Abdomen is soft, nondistended and nontender to palpation Extremities: Moves extremities equally Psych: Normal mood and affect Neuro: Drowsy, answers some questions, slurred speech. Able to transfer from wheelchair. Skin: Warm, dry, intact Constitutional Vital Signs, click to edit/add: Last Vital Signs Temp 98.2 F 04/20/23 20:17 Pulse 118 H 04/20/23 21:00 Resp 15 04/20/23 21:00 BP 132/101 H 04/20/23 21:00 Pulse Ox 91 L 04/20/23 20:30 O2 Del Method Room Air 04/20/23 20:17 Course Vital Signs Vital signs: Vital Signs Temperature 98.2 F 04/20/23 20:17 Pulse Rate 126 H 04/20/23 20:17 Respiratory Rate 20 04/20/23 20:17 Blood Pressure 172/110 H 04/20/23 20:17 Pulse Oximetry 95 04/20/23 20:17 Oxygen Delivery Method Room Air 04/20/23 20:17 Temperature 98.2 F 04/20/23 20:17 Pulse Rate 118 H 04/20/23 21:00 Respiratory Rate 15 04/20/23 21:00 Blood Pressure 132/101 H 04/20/23 21:00 Pulse Oximetry 91 L 04/20/23 20:30 Oxygen Delivery Method Room Air 04/20/23 20:17 Medical Decision Making MDM Narrative Medical decision making narrative: 2144: Patient was immediately placed in a room, on cardiac monitoring was found to be breathing on his own with relatively stable vital signs. He was given IV fluids, IV Narcan and Zofran. He did have improvement of his mental status after administration of Narcan, we suspect polypharmacy. Patient's friend at bedside is concerned that the patient may be self-medicating with alcohol and or drugs due to his social situation. As the history was limited and the patient was altered, he was sent for CTs of the head, C-spine and chest x-ray. He had over 1000 mL in his bladder, straight catheterization performed to drain his bladder and obtain urine specimen. His vital signs are normalizing after IV fluids and Narcan administration. Case is turned over to attending physician at this time, patient is acutely intoxicated with alcohol level 449. Anticipate the patient will need to be admitted, reevaluated after he is sober with clearance by mental health counseling services as we cannot rule out intentional overdose. Medical Records Medical records reviewed: Yes I reviewed the patient's medical records Lab Data Lab results reviewed: Yes I reviewed the patient's lab results Labs: Lab Results 04/20/23 Range/Units 20:27 WBC 9.7 (4.0-11.0) 10^3/uL RBC 5.33 (4.70-6.10) 10^6/uL Hgb 15.8 (14.0-18.0) g/dL Hct 47.1 (42.0-54.0) % MCV 88.4 (80.0-94.0) fL MCH 29.6 (25.9-34.0) pg MCHC 33.5 (29.9-35.2) g/dL RDW 14.4 (11.0-15.0) % Plt Count 433 (150-450) 10^3/uL MPV 9.9 (9.5-13.5) fL Neut % (Auto) 58.5 (43.0-75.0) % Lymph % (Auto) 35.7 (20.5-60.0) % Kidder % (Auto) 4.8 (1.7-12.0) % Eos % (Auto) 0.3 L (0.9-7.0) % Baso % (Auto) 0.5 (0.2-2.0) % Neut # (Auto) 5.7 (1.4-6.5) 10^3/uL Lymph # (Auto) 3.5 (1.2-3.8) 10^3/uL Kidder # (Auto) 0.5 (0.3-0.8) 10^3/uL Eos # (Auto) 0.0 (0.0-0.7) 10^3/uL Baso # (Auto) 0.1 (0.0-0.1) 10^3/uL Abs Immat Gran (auto) 0.02 (0.00-0.03) 10^3/uL Imm/Tot Granulo (auto) 0.2 (0.0-0.5) % Sodium 147 H (136-145) mmol/L Potassium 3.3 L (3.5-5.1) mmol/L Chloride 109 H (98-107) mmol/L Carbon Dioxide 24.4 (21.0-32.0) mmol/L Anion Gap 16.9 BUN 6.0 L (7.0-18.0) mg/dL Creatinine 1.07 (0.70-1.30) mg/dL Est GFR ( Amer) >60 (>=60) Est GFR (Non-Af Amer) >60 (>=60) BUN/Creatinine Ratio 5.6 Glucose 123 H (74-106) mg/dL Lactate 2.5 H* (0.4-2.0) mmol/L Calcium 8.9 (8.5-10.1) mg/dL Magnesium 2.0 (1.8-2.4) mg/dL Total Bilirubin 0.2 (0.2-1.0) mg/dL AST 23 (15-37) U/L ALT 31 (16-63) U/L Alkaline Phosphatase 77 (46-116) U/L CK-MB (CK-2) 0.70 (<=3.60) ng/mL Myoglobin 44 (16-96) ng/mL Troponin I High Sens 8.0 (4.0-76.1) pg/mL Total Protein 7.7 (6.4-8.2) g/dL Albumin 4.0 (3.4-5.0) g/dL Globulin 3.7 g/dL Albumin/Globulin Ratio 1.1 Salicylates <2.8 (<=19.9) mg/dL Acetaminophen <2.0 L (10.0-30.0) ug/mL Ethanol Quant 449 mg/dL ECG Data Attestation: I personally reviewed and interpreted this ECG as follows: (Sinus tachycardia at a rate of 118, no acute ST elevation or ectopy. EKG reviewed by attending physician) Discharge Plan Discharge Chief Complaint: Alcohol Clinical Impression: Alcoholic intoxication, Altered mental status Patient Disposition: Admitted as Observation Time of Disposition Decision: 21:59 Documented by User: Sedrick Levin 04/20/23 21:59 HPI - General Adult General Chief complaint: Alcohol Stated complaint: ALCOHOL Time Seen by Provider: 04/20/23 20:13 Related Data Home Medications Medication Instructions Recorded Confirmed allopurinol 300 mg tablet 600 mg PO DAILY 08/31/22 02/20/23 alprazolam 0.5 mg tablet 0.5 mg PO TID PRN anxiety 08/31/22 02/20/23 amlodipine 10 mg tablet 10 mg PO QDAY 08/31/22 02/20/23 carvedilol 6.25 mg tablet 6.25 mg PO DAILY 08/31/22 02/20/23 celecoxib 100 mg capsule 100 mg PO DAILY PRN RA flare 08/31/22 02/20/23 clonidine HCl 0.1 mg tablet 0.1 mg PO BID 08/31/22 02/20/23 colchicine 0.6 mg tablet 0.6 mg PO .every other 08/31/22 02/20/23 quetiapine 50 mg tablet See Rx Instructions PO .hs 08/31/22 02/20/23 tramadol 50 mg tablet 50 mg PO Q6H PRN pain 08/31/22 02/20/23 gabapentin 300 mg capsule 300 mg PO TID 02/15/23 02/20/23 (Neurontin) cyclobenzaprine 10 mg tablet 10 mg PO TID PRN muscle spasm 03/06/23 03/06/23 Previous Rx's Medication Instructions Recorded doxycycline hyclate 100 mg tablet 100 mg PO BID 10 days #20 tabs 02/16/23 oxycodone-acetaminophen 5 mg-325 1 tab PO Q6H PRN pain (scale score 02/16/23 mg tablet (Percocet) 4-6) #10 tabs oxycodone-acetaminophen 5 mg-325 2 tab PO Q6H PRN pain (scale score 02/16/23 mg tablet (Percocet) 7-10) #10 tabs Allergies Allergy/AdvReac Type Severity Reaction Status Date / Time No Known Drug Allergies Allergy Verified 02/20/23 12:59 PFSH PFSH Medical History Acute viral syndrome ?B34.9 - Viral infection, unspecified (ICD-10) Diarrhea ?R19.7 - Diarrhea, unspecified (ICD-10) Gouty arthritis ?M10.9 - Gout, unspecified (ICD-10) Rheumatoid arthritis flare ?M06.9 - Rheumatoid arthritis, unspecified (ICD-10) Polyarthralgia ?M25.50 - Pain in unspecified joint (ICD-10) Rheumatoid arthritis flare ?M06.9 - Rheumatoid arthritis, unspecified (ICD-10) Weakness ?R53.1 - Weakness (ICD-10) Mild shortness of breath ?R06.02 - Shortness of breath (ICD-10) Headache ?R51.9 - Headache, unspecified (ICD-10) Polyarthralgia ?M25.50 - Pain in unspecified joint (ICD-10) Flare of rheumatoid arthritis ?M06.9 - Rheumatoid arthritis, unspecified (ICD-10) Arthralgia ?M25.50 - Pain in unspecified joint (ICD-10) Drug-seeking behavior ?Z76.5 - Malingerer [conscious simulation] (ICD-10) Surgical History (Updated 02/14/23 @ 20:23 by Swathi Barkley RN) H/O shoulder surgery ?Z98.890 - Other specified postprocedural states (ICD-10) Social History Smoking status: Never smoker Highest level of school completed/degree received: Associate degree: occupational, technical, vocational program Exam Constitutional Vital Signs, click to edit/add: Last Vital Signs Temp 98.2 F 04/20/23 20:17 Pulse 118 H 04/20/23 21:00 Resp 15 04/20/23 21:00 BP 132/101 H 04/20/23 21:00 Pulse Ox 91 L 04/20/23 20:30 O2 Del Method Room Air 04/20/23 20:17 Course Vital Signs Vital signs: Vital Signs Temperature 98.2 F 04/20/23 20:17 Pulse Rate 126 H 04/20/23 20:17 Respiratory Rate 20 04/20/23 20:17 Blood Pressure 172/110 H 04/20/23 20:17 Pulse Oximetry 95 04/20/23 20:17 Oxygen Delivery Method Room Air 04/20/23 20:17 Temperature 98.2 F 04/20/23 20:17 Pulse Rate 118 H 04/20/23 21:00 Respiratory Rate 15 04/20/23 21:00 Blood Pressure 132/101 H 04/20/23 21:00 Pulse Oximetry 91 L 04/20/23 20:30 Oxygen Delivery Method Room Air 04/20/23 20:17 Medical Decision Making MDM Narrative Medical decision making narrative: 2144: Patient was immediately placed in a room, on cardiac monitoring was found to be breathing on his own with relatively stable vital signs. He was given IV fluids, IV Narcan and Zofran. He did have improvement of his mental status after administration of Narcan, we suspect polypharmacy. Patient's friend at bedside is concerned that the patient may be self-medicating with alcohol and or drugs due to his social situation. As the history was limited and the patient was altered, he was sent for CTs of the head, C-spine and chest x-ray. He had over 1000 mL in his bladder, straight catheterization performed to drain his bladder and obtain urine specimen. His vital signs are normalizing after IV fluids and Narcan administration. Case is turned over to attending physician at this time, patient is acutely intoxicated with alcohol level 449. Anticipate the patient will need to be admitted, reevaluated after he is sober with clearance by mental health counseling services as we cannot rule out intentional overdose. Attending physician note -CT scans of the head and cervical spine did not reveal any worrisome abnormality, according to radiologist report. Chest x-ray likewise unremarkable. I spoke with the on-call telehospitalist. The patient will be admitted to the ICU under Dr. Roa's service on an observation basis with nurse practitioner Silvia Devi submitting orders and applying appropriate alcohol withdrawal protocol. Patient's family informed and disposition discussed. For this patient encounter I reviewed the mid-level provider?s documentation, medical decision-making and treatment plan, and I personally spent time with this patient. Shared APC visit, physician attestation: [id number]: This visit was performed by both a physician and an APC. I personally evaluated and examined the patient. I performed all aspects of MDM as documented. - DO Vane Lab Data Labs: Lab Results 04/20/23 Range/Units 20:27 WBC 9.7 (4.0-11.0) 10^3/uL RBC 5.33 (4.70-6.10) 10^6/uL Hgb 15.8 (14.0-18.0) g/dL Hct 47.1 (42.0-54.0) % MCV 88.4 (80.0-94.0) fL MCH 29.6 (25.9-34.0) pg MCHC 33.5 (29.9-35.2) g/dL RDW 14.4 (11.0-15.0) % Plt Count 433 (150-450) 10^3/uL MPV 9.9 (9.5-13.5) fL Neut % (Auto) 58.5 (43.0-75.0) % Lymph % (Auto) 35.7 (20.5-60.0) % Kidder % (Auto) 4.8 (1.7-12.0) % Eos % (Auto) 0.3 L (0.9-7.0) % Baso % (Auto) 0.5 (0.2-2.0) % Neut # (Auto) 5.7 (1.4-6.5) 10^3/uL Lymph # (Auto) 3.5 (1.2-3.8) 10^3/uL Kidder # (Auto) 0.5 (0.3-0.8) 10^3/uL Eos # (Auto) 0.0 (0.0-0.7) 10^3/uL Baso # (Auto) 0.1 (0.0-0.1) 10^3/uL Abs Immat Gran (auto) 0.02 (0.00-0.03) 10^3/uL Imm/Tot Granulo (auto) 0.2 (0.0-0.5) % Sodium 147 H (136-145) mmol/L Potassium 3.3 L (3.5-5.1) mmol/L Chloride 109 H (98-107) mmol/L Carbon Dioxide 24.4 (21.0-32.0) mmol/L Anion Gap 16.9 BUN 6.0 L (7.0-18.0) mg/dL Creatinine 1.07 (0.70-1.30) mg/dL Est GFR ( Amer) >60 (>=60) Est GFR (Non-Af Amer) >60 (>=60) BUN/Creatinine Ratio 5.6 Glucose 123 H (74-106) mg/dL Lactate 2.5 H* (0.4-2.0) mmol/L Calcium 8.9 (8.5-10.1) mg/dL Magnesium 2.0 (1.8-2.4) mg/dL Total Bilirubin 0.2 (0.2-1.0) mg/dL AST 23 (15-37) U/L ALT 31 (16-63) U/L Alkaline Phosphatase 77 (46-116) U/L CK-MB (CK-2) 0.70 (<=3.60) ng/mL Myoglobin 44 (16-96) ng/mL Troponin I High Sens 8.0 (4.0-76.1) pg/mL Total Protein 7.7 (6.4-8.2) g/dL Albumin 4.0 (3.4-5.0) g/dL Globulin 3.7 g/dL Albumin/Globulin Ratio 1.1 Salicylates <2.8 (<=19.9) mg/dL Acetaminophen <2.0 L (10.0-30.0) ug/mL Ethanol Quant 449 mg/dL Critical Care Time Critical Care Time Critical Care Time: Yes Total Critical Care Time: 45 Attestation: Critical Care Time: 45 minutes, critical care time is separate from any procedures that are performed. The following was considered in the determination of critical care but not limited to the level medical decision-making, intensive cardiac and/or respiratory monitor, frequent vital sign monitoring, evaluation of laboratory studies, evaluation of a radiographic studies, oxygen monitoring and constant monitoring. Discharge Plan Discharge Chief Complaint: Alcohol Clinical Impression: Alcoholic intoxication, Altered mental status Patient Disposition: Admitted as Observation Time of Disposition Decision: 21:59
[2023-04-20 20:40] LABS: Basophils Absolute Auto 0.1 10^3/uL (0.0-0.1); Basophils Percent Auto 0.5 % (0.2-2.0); Eosinophils Percent Auto 0.3 % (0.9-7.0); Hematocrit 47.1 % (42.0-54.0); Hemoglobin 15.8 g/dL (14.0-18.0); Immature Granulocytes Abs Auto 0.02 10^3/uL (0.00-0.03); Immature Granulocytes Pct Auto 0.2 % (0.0-0.5); Lymphocytes Absolute Auto 3.5 10^3/uL (1.2-3.8); Lymphocytes Percent Auto 35.7 % (20.5-60.0); Mean Corpuscular HGB Conc 33.5 g/dL (29.9-35.2); Mean Corpuscular Hemoglobin 29.6 pg (25.9-34.0); Mean Corpuscular Volume 88.4 fL (80.0-94.0); Mean Platelet Volume 9.9 fL (9.5-13.5); Monocytes Absolute Auto 0.5 10^3/uL (0.3-0.8); Monocytes Percent Auto 4.8 % (1.7-12.0); Neutrophils Absolute Auto 5.7 10^3/uL (1.4-6.5); Neutrophils Percent Auto 58.5 % (43.0-75.0); Platelet Count 433 10^3/uL (150-450); Red Blood Count 5.33 10^6/uL (4.70-6.10); Red Cell Distribution Width 14.4 % (11.0-15.0); White Blood Count 9.7 10^3/uL (4.0-11.0)
[2023-04-20] MEDS: NALOXONE HCL 0.4 MG/ML VIAL IV (20:53)
[2023-04-20] MEDS: 0.9 % SODIUM CHLORIDE 1,000 ML 999 ML IV (20:54)
[2023-04-20] MEDS: ONDANSETRON PF 4 MG/2 ML VIAL IV (20:54)
[2023-04-20 20:56] LABS: Alanine Aminotransferase 31 U/L (16-63); Albumin Globulin Ratio 1.1; Alkaline Phosphatase 77 U/L (46-116); Anion Gap 16.9; Aspartate Amino Transferase 23 U/L (15-37); BUN Creatinine Ratio 5.6; Bilirubin Total 0.2 mg/dL (0.2-1.0); Calcium 8.9 mg/dL (8.5-10.1); Carbon Dioxide 24.4 mmol/L (21.0-32.0); Chloride 109 mmol/L (98-107); Estimated GFR (African America >60 (>=60); Estimated GFR (Non-African Ame >60 (>=60); Globulin 3.7 g/dL; Glucose 123 mg/dL (74-106); Potassium 3.3 mmol/L (3.5-5.1); Salicylate <2.8 mg/dL (<=19.9); Sodium 147 mmol/L (136-145); Total Protein 7.7 g/dL (6.4-8.2)
[2023-04-20 21:00] LABS: Acetaminophen <2.0 ug/mL (10.0-30.0)
[2023-04-20 21:03] LABS: Lactate/Lactic Acid 2.5 mmol/L (0.4-2.0)
[2023-04-20 21:22] LABS: Ethanol 449 mg/dL; Myoglobin 44 ng/mL (16-96)
[2023-04-20 21:50] LABS: Bilirubin Urine NEGATIVE (NEGATIVE); Blood Urine NEGATIVE (NEGATIVE); Clarity Urine CLEAR (CLEAR); Color Urine LT. YELLOW (YELLOW); Glucose Urine UA NEGATIVE (NEGATIVE); Ketones Urine NEGATIVE (NEGATIVE); Leukocyte Esterase Urine NEGATIVE (NEGATIVE); Nitrite Urine NEGATIVE (NEGATIVE); Protein Urine NEGATIVE (NEG/TRACE); Specific Gravity Urine <=1.005 (1.005-1.025); Urobilinogen Urine 0.2 EU/dL (0.2-1.0); pH Urine 5.5 (5.0-9.0)
--- NOTE | 2023-04-20 21:52 | PC.NURSE ---
patient not able to answer questions on arrival. Family and friends report that he has been going through a lot of emotional issues recently, being from his for several months and getting an NATE last week. He has been drinking heavily, and when family arrived at his home today he was heavily intoxicated, drooling on himself, not able to walk or talk, he was not able to tell them if he took anything other than alcohol. He has pain medications in his possession and would have been able to overdose on his own pills, so family was concerned that this was a possibility.
[2023-04-20 22:02] LABS: Amphetamine Screen Urine NEGATIVE (NEGATIVE); Barbiturates Screen Urine NEGATIVE (NEGATIVE); Benzodiazepines Screen Urine POSITIVE (NEGATIVE); Buprenorphine Screen Urine NEGATIVE (NEGATIVE); Cannabinoid Screen Urine NEGATIVE (NEGATIVE); Cocaine Screen Urine NEGATIVE (NEGATIVE); Methadone Screen Urine NEGATIVE (NEGATIVE); Methamphetamines Screen Urine NEGATIVE (NEGATIVE); Opiate Screen Urine NEGATIVE (NEGATIVE); Oxycodone Screen Urine NEGATIVE (NEGATIVE); Phencyclidine Screen Urine NEGATIVE (NEGATIVE); Tricyclic Antidepressant Urine NEGATIVE (NEGATIVE); Urine Microscopic Indicated NO
[2023-04-20 22:20] LABS: Creatine Kinase 104 U/L (39-308)
--- OUTSIDE RECORDS SUMMARY | 2023-04-20 22:54 | XMS_ITS | CCD ---
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 qam and 300 mg qpm but he is actually taking allopurinol 400 mg qam and 300 qpm instead. Tolerating this higher dose without issues. -He stopped drinking Nov 2021. He started drinking some since [facility]. -he had 2 flares of joint pain [...] 30 min (more content not included)... Normal [facility] ALT SerPl-cCncon 08-12-2022 ALT [Catalytic activity/Vol] 30 U/L Normal 10-54 [facility] Comment on above: Order Comment: Speci men Type: BLOOD SPECIMEN Ordering Facility: [facility] Address: [address] [place] [address] Performed By: #### 3 084-1 #### [facility] CLIA [id number] [address] [place] [address] AST SerPl-cCncon 08-12-2022 AST [Catalytic activity/Vol] 28 U/L Normal 14-40 [facility] Comment on above: Order Comment: Speci men Type: BLOOD SPECIMEN Ordering Facility: [facility] Address: [address] [place] [address] Performed By: #### 3 084-1 #### [facility] CLIA [id number] [address] [place], [place] [address] Albumin SerPl-mCncon 023 Albumin [Mass/Vol] 4.5 g/dL Normal 3.9-4.9 [facility] Comment on above: Order Comment: Speci men Type: BLOOD SPECIMEN Ordering Facility: [facility] Address: [address] [place] [address] Performed By: #### 3 084-1 #### [facility] CLIA [id number] [address] [place], [place] [address] CBC W Auto Differential pane l (Bld)on 08-12-2022 Basophils (Bld) [#/Vol] 0.00 10*3/uL Normal <0.11 [facility] Comment on above: Order Comment: Speci men Type: BLOOD SPECIMEN Ordering Facility: [facility] Address: [address] [place] [address] Performed By: #### 5 7021-8 #### [facility] CLIA [id number] [address] [place] [address] LAB CLIA [id number] [address] [place] [address] [place] Basophils/100 WBC (Bld) 0.0 % Normal [facility] Comment on above: Order Comment: Speci men Type: BLOOD SPECIMEN Ordering Facility: [facility] Address: [address] [place] [address] Performed By: #### 5 7021-8 #### [facility] CLIA [id number] [address] [place] [address] LAB CLIA [id number] [address] [place] [address] [place] Differential cell count method Nom (Bld) Manual Normal [facility] Comment on above: Order Comment: Speci men Type: BLOOD SPECIMEN Ordering Facility: [facility] Address: [address] Performed By: #### 5 7021-8 #### [facility] CLIA [id number] [address] [place] [address] LAB CLIA [id number] [address] [place] [address] [place] Eosinophils (Bld) [#/Vol] 0.08 10*3/uL Normal <0.46 [facility] Comment on above: Order Comment: Speci men Type: BLOOD SPECIMEN Ordering Facility: [facility] Address: [address] [place] [address] Performed By: #### 5 7021-8 #### [facility] CLIA [id number] [address] [place] [address] LAB CLIA [id number] [address] [place] [address] [place] Eosinophils/100 WBC (Bld) 0.9 % Normal [facility] Comment on above: Order Comment: Speci men Type: BLOOD SPECIMEN Ordering Facility: [facility] Address: [address] [place] [address] Performed By: #### 5 7021-8 #### [facility] CLIA [id number] [address] [place] [address] LAB CLIA [id number] [address] [place] [address] [place] Erythrocyte distribution width (RBC) [Ratio] 14.6 % Normal 11.5-15.0 [facility] Comment on above: Order Comment: Speci men Type: BLOOD SPECIMEN Ordering Facility: [facility] Address: [address] [place] [address] Performed By: #### 5 7021-8 #### [facility] CLIA [id number] [address] [place] [address] LAB CLIA [id number] [address] [place] [address] [place] Hematocrit (Bld) [Volume fraction] 45.7 % Normal 39.0-51.0 [facility] Comment on above: Order Comment: Speci men Type: BLOOD SPECIMEN Ordering Facility: [facility] Address: [address] [place] [address] Performed By: #### 5 7021-8 #### [facility] CLIA [id number] [address] [place] [address] LAB CLIA [id number] [address] [place] [address] [place] Hemoglobin (Bld) [Mass/Vol] 15.3 g/dL Normal 13.0-17.0 [facility] Comment on above: Order Comment: Speci men Type: BLOOD SPECIMEN Ordering Facility: [facility] Address: [address] [place] [address] Performed By: #### 5 7021-8 #### [facility] CLIA [id number] [address] [place] [address] LAB CLIA [id number] [address] [place] [address] [place] Lymphocytes (Bld) [#/Vol] 3.27 10*3/uL Normal 1.00-4.00 [facility] Comment on above: Order Comment: Speci men Type: BLOOD SPECIMEN Ordering Facility: [facility] Address: [address] [place] [address] Performed By: #### 5 7021-8 #### [facility] CLIA [id number] [address] [place] [address] LAB CLIA [id number] [address] [place] [address] [place] Lymphocytes/100 WBC (Bld) 37.7 % Normal [facility] Comment on above: Order Comment: Speci men Type: BLOOD SPECIMEN Ordering Facility: [facility] Address: [address] [place], [place] [address] Performed By: #### 5 7021-8 #### [facility] CLIA [id number] [address] [place] [address] LAB CLIA [id number] [address] [place] [address] [place] MCH (RBC) [Entitic mass] 29.4 pg Normal 26.0-34.0 [facility] Comment on above: Order Comment: Speci men Type: BLOOD SPECIMEN Ordering Facility: [facility] Address: [address] [place] [address] Performed By: #### 5 7021-8 #### [facility] CLIA [id number] [address] [place] [address] LAB CLIA [id number] [address] [place] [address] [place] MCHC (RBC) [Mass/Vol] 33.5 g/dL Normal 30.5-36.0 [facility] Comment on above: Order Comment: Speci men Type: BLOOD SPECIMEN Ordering Facility: [facility] Address: [address] [place] [address] Performed By: #### 5 7021-8 #### [facility] CLIA [id number] [address] [place] [address] LAB CLIA [id number] [address] [place] [address] [place] MCV (RBC) [Entitic vol] 87.9 fL Normal 80.0-100.0 [facility] Comment on above: Order Comment: Speci men Type: BLOOD SPECIMEN Ordering Facility: [facility] Address: [address] [place] [address] Performed By: #### 5 7021-8 #### [facility] CLIA [id number] [address] [place] [address] LAB CLIA [id number] [address] [place] [address] [place] Monocytes (Bld) [#/Vol] 0.23 10*3/uL Normal <0.87 [facility] Comment on above: Order Comment: Speci men Type: BLOOD SPECIMEN Ordering Facility: [facility] Address: [address] [place], [place] [address] Performed By: #### 5 7021-8 #### [facility] CLIA [id number] [address] [place] [address] LAB CLIA [id number] [address] [place] [address] [place] Monocytes/100 WBC (Bld) 2.6 % Normal [facility] Comment on above: Order Comment: Speci men Type: BLOOD SPECIMEN Ordering Facility: [facility] Address: [address] [place], [place] [address] Performed By: #### 5 7021-8 #### [facility] CLIA [id number] [address] [place] [address] LAB CLIA [id number] [address] [place] [address] [place] Neutrophils (Bld) [#/Vol] 5.10 10*3/uL Normal 1.45-7.50 [facility] Comment on above: Order Comment: Speci men Type: BLOOD SPECIMEN Ordering Facility: [facility] Address: [address] [place] [address] Performed By: #### 5 7021-8 #### [facility] CLIA [id number] [address] [place] [address] LAB CLIA [id number] [address] [place] [address] [place] Neutrophils/100 WBC (Bld) 58.8 % Normal [facility] Comment on above: Order Comment: Speci men Type: BLOOD SPECIMEN Ordering Facility: [facility] Address: [address] [place] [address] Performed By: #### 5 7021-8 #### [facility] CLIA [id number] [address] [place] [address] LAB CLIA [id number] [address] [place] [address] [place] Nucleated RBC (Bld) [#/Vol] 10*3/uL Normal <0.01 [facility] Comment on above: Order Comment: Speci men Type: BLOOD SPECIMEN Ordering Facility: [facility] Address: [address] [place], [place] [address] Performed By: #### 5 7021-8 #### [facility] CLIA [id number] [address] [place] [address] LAB CLIA [id number] [address] [place] [address] [place] Nucleated RBC/100 WBC (Bld) [Ratio] 0.0 /100 WBC Normal [facility] Comment on above: Order Comment: Speci men Type: BLOOD SPECIMEN Ordering Facility: [facility] Address: [address] Performed By: #### 5 7021-8 #### [facility] CLIA [id number] [address] [place] [address] LAB CLIA [id number] [address] [place] [address] [place] Platelet mean volume (Bld) [Entitic vol] 10.1 fL Normal 9.0-12.7 [facility] Comment on above: Order Comment: Speci men Type: BLOOD SPECIMEN Ordering Facility: [facility] Address: [address] Performed By: #### 5 7021-8 #### [facility] CLIA [id number] [address] [place] [address] LAB CLIA [id number] [address] [place] [address] [place] Platelets (Bld) [#/Vol] 289 10*3/uL Normal 150-400 [facility] Comment on above: Order Comment: Speci men Type: BLOOD SPECIMEN Ordering Facility: [facility] Address: [address] Performed By: #### 5 7021-8 #### [facility] CLIA [id number] [address] [place] [address] LAB CLIA [id number] [address] [place] [address] [place] Platelets Estimate (Bld) [#/Vol] Adequate Normal [facility] Comment on above: Order Comment: Speci men Type: BLOOD SPECIMEN Ordering Facility: [facility] Address: [address] [place], [place] [address] Performed By: #### 5 7021-8 #### [facility] CLIA [id number] [address] [place] [address] LAB CLIA [id number] [address] [place] [address] [place] RBC (Bld) [#/Vol] 5.20 10*6/uL Normal 4.20-6.00 [facility] Comment on above: Order Comment: Speci men Type: BLOOD SPECIMEN Ordering Facility: [facility] Address: [address] [place] [address] Performed By: #### 5 7021-8 #### [facility] CLIA [id number] [address] [place] [address] LAB CLIA [id number] [address] [place] [address] [place] RED CELL MORPH Reviewed: unremarkable Normal [facility] Comment on above: Order Comment: Speci men Type: BLOOD SPECIMEN Ordering Facility: [facility] Address: [address] [place] [address] Performed By: #### 5 7021-8 #### [facility] CLIA [id number] [address] [place] [address] LAB CLIA [id number] [address] [place] [address] [place] WBC (Bld) [#/Vol] 8.67 10*3/uL Normal 3.70-11.00 [facility] Comment on above: Order Comment: Speci men Type: BLOOD SPECIMEN Ordering Facility: [facility] Address: [address] [place] [address] Performed By: #### 5 7021-8 #### [facility] CLIA [id number] [address] [place] [address] LAB CLIA [id number] [address] [place] [address] [place] CREATININE BLDon 08-12-2022 Creatinine [Mass/Vol] 1.28 mg/dL High 0.73-1.22 [facility] Comment on above: Order Comment: Speci men Type: BLOOD SPECIMEN Ordering Facility: [facility] Address: [address] [address] Performed By: #### C RET1 #### [facility] CLIA [id number] [address] [place], [place] [address] ESTIMATED GLOMERULAR FILTRATION RATE 76 mL/min/1.73m??? Normal >=60 [facility] Comment on above: Order Comment: Speci men Type: BLOOD SPECIMEN Ordering Facility: [facility] Address: [address] [place] [address] Result Comment: Jyoti mated Glomerular Filtration Rate [...] GFR. Performed By: #### C RET1 #### [facility] CLIA [id number] [address] [place] [address] CRP SerPl-mCncon 08-12-2022 CRP [Mass/Vol] mg/L Normal <0.9 [facility] Comment on above: Order Comment: Speci men Type: BLOOD SPECIMEN Ordering Facility: [facility] Address: [address] [place] [address] Performed By: #### 1 742-6, 1920-8, 1751-7, CRET1 #### [facility] CLIA [id number] [address] [place], [place] [address] ESR Westergren method (Bld) [Velocity]on 08-12-2022 ESR (Bld) [Velocity] 5 mm/h Normal 0-15 [facility] Comment on above: Order Comment: Speci men Type: BLOOD SPECIMEN Ordering Facility: [facility] Address: [address] [address] Performed By: #### 4 537-7 #### [facility] CLIA [id number] [address] [facility] [id number] [id number] [place] Urate SerPl-mCncon 3 Urate [Mass/Vol] 9.2 mg/dL High 4.0-8.1 [facility] Comment on above: Order Comment: Speci men Type: BLOOD SPECIMEN Ordering Facility: [facility] Address: [address] [place] [address] Performed By: #### 3 084-1 #### [facility] CLIA [id number] [address] [place], [place] [address] CBC AUTO DIFFon 06-28-2022 BASO # 0.0 103/ul Normal 0.0-0.1 [facility] Comment on above: Performed By: #### C BC #### [facility] [address] [address] [address] Nilay Gibbs Basophils/100 WBC (Bld) 0.2 % Normal 0.2-2.0 [facility] Comment on above: Performed By: #### C BC #### [facility] [address] [address] [address] Nilay Gibbs EO # 0.0 103/ul Normal 0.0-0.7 [facility] Comment on above: Performed By: #### C BC #### [facility] [address] [address] [address] Nilay Gibbs Eosinophils/100 WBC (Bld) 0.3 % Critically low 0.9-7.0 [facility] Comment on above: Performed By: #### C BC #### [facility] [address] [address] [address] Nilay Gibbs Erythrocyte distribution width (RBC) [Ratio] 13.9 % Normal 11.0-15.0 [facility] Comment on above: Performed By: #### C BC #### [facility] [address] [address] [address] Nilay Gibbs Hematocrit (Bld) [Volume fraction] 39.8 % Critically low 42.0-54.0 [facility] Comment on above: Performed By: #### C BC #### [facility] [address] [address] [address] Nilay Gibbs Hemoglobin (Bld) [Mass/Vol] 13.2 g/dL Critically low 14.0-18.0 [facility] Comment on above: Performed By: #### C BC #### [facility] [address] [address] [address] Nilay Gibbs IG # 0.04 10e3/ul Critically high 0.00-0.03 [facility] Comment on above: Performed By: #### C BC #### [facility] [address] [address] [address] Nilay Gibbs IG % 0.4 % Normal 0.0-0.5 [facility] Comment on above: Performed By: #### C BC #### [facility] [address] [place] [address] Dr. Nilay Gibbs LYMPH # 1.8 103/ul Normal 1.2-3.8 [facility] Comment on above: Performed By: #### C BC #### [facility] [address] [place] [address] Dr. Nilay Gibbs Lymphocytes/100 WBC (Bld) 17.5 % Critically low 20.5-60.0 [facility] Comment on above: Performed By: #### C BC #### [facility] [address] [place] [address] Dr. Nilay Gibbs MANUAL DIFF REQ NO Normal [facility] Comment on above: Performed By: #### C BC #### [facility] [address] [address] [address] Nilay Gibbs MCH (RBC) [Entitic mass] 29.3 pg Normal 25.9-34.0 [facility] Comment on above: Performed By: #### C BC #### [facility] [address] [place] [address] Dr. Nilay Gibbs MCHC (RBC) [Mass/Vol] 33.2 g/dL Normal 29.9-35.2 [facility] Comment on above: Performed By: #### C BC #### [facility] [address] [place] [address] Dr. Nilay Gibbs MCV (RBC) [Entitic vol] 88.4 fL Normal 80.0-94.0 [facility] Comment on above: Performed By: #### C BC #### [facility] [address] [address] [address] Nilay Gibbs MONO # 0.9 103/ul Critically high 0.3-0.8 [facility] Comment on above: Performed By: #### C BC #### [facility] [address] [address] [address] Nilay Gibbs Monocytes/100 WBC (Bld) 9.4 % Normal 1.7-12.0 [facility] Comment on above: Performed By: #### C BC #### [facility] [address] [place] [address] Dr. Nilay Gibbs NEUT # 7.2 103/ul Critically high 1.4-6.5 [facility] Comment on above: Performed By: #### C BC #### [facility] [address] [place] [address] Dr. Nilay Gibbs Neutrophils/100 WBC (Bld) 72.2 % Normal 43.0-75.0 [facility] Comment on above: Performed By: #### C BC #### [facility] [address] [place] [address] Dr. Nilay Gibbs Platelet mean volume (Bld) [Entitic vol] 9.6 fL Normal 9.5-13.5 [facility] Comment on above: Performed By: #### C BC #### [facility] [address] [place] [address] Dr. Nilay Gibbs PLT 356 103/ul Normal 150-450 [facility] Comment on above: Performed By: #### C BC #### [facility] [address] [place], [place] [address] Dr. Nilay Gibbs RBC 4.50 106/ul Critically low 4.70-6.10 [facility] Comment on above: Performed By: #### C BC #### [facility] [address] [place] [address] Dr. Nilay Gibbs WBC 10.0 103/ul Normal 4.0-11.0 [facility] Comment on above: Performed By: #### C BC #### [facility] [address] [place] [address] Dr. Nilay Gibbs PROF CHEM 8 (BAS METB)on Anion gap [Moles/Vol] 12.4 mmol/L Normal [facility] Comment on above: Performed By: #### A MM #### [facility] [address] [place] [address] Dr. Nilay Gibbs Calcium [Mass/Vol] 9.4 mg/dL Normal 8.5-10.1 [facility] Comment on above: Performed By: #### A MM #### [facility] [address] [place] [address] Dr. Nilay Gibbs Chloride [Moles/Vol] 105 mmol/L Normal 98-107 [facility] Comment on above: Performed By: #### A MM #### [facility] [address] [place] [address] Dr. Nilay Gibbs CO2 [Moles/Vol] 25.6 mmol/L Normal 21.0-32.0 [facility] Comment on above: Performed By: #### A MM #### [facility] [address] [place] [address] Dr. Nilay Gibbs Creatinine [Mass/Vol] 1.18 mg/dL Normal 0.70-1.30 [facility] Comment on above: Performed By: #### A MM #### [facility] [address] [place] [address] Dr. Nilay Gibbs EGFR-AF SRI LANKAN >60 Normal >=60 [facility] Comment on above: Performed By: #### A MM #### [facility] [address] [place] [address] Dr. Nilay Gibbs EGFR-NON AF SRI LANKAN >60 Normal >=60 [facility] Comment on above: Performed By: #### A MM #### [facility] [address] [place] [address] Dr. Nilay Gibbs Glucose [Mass/Vol] 125 mg/dL Critically high 74-106 [facility] Comment on above: Performed By: #### A MM #### [facility] [address] [address] [address] Nilay Gibbs Potassium [Moles/Vol] 4.3 mmol/L Normal 3.5-5.1 [facility] Comment on above: Performed By: #### A MM #### [facility] [address] [address] [address] Nilay Gibbs Sodium [Moles/Vol] 139 mmol/L Normal 136-145 [facility] Comment on above: Performed By: #### A MM #### [facility] [address] [place] [address] Dr. Nilay Gibbs Urea nitrogen [Mass/Vol] 15.0 mg/dL Normal 7.0-18.0 [facility] Comment on above: Performed By: #### A MM #### [facility] [address] [place] [address] Dr. Nilay Gibbs Urea nitrogen/Creatinine [Mass ratio] 12.7 mg/mg Normal [facility] Comment on above: Performed By: #### A MM #### [facility] [address] [place] [address] Dr. Nilay Gibbs CBC AUTO DIFFon 06-20-2022 BASO # 0.0 103/ul Normal 0.0-0.1 [facility] Comment on above: Performed By: #### A MM #### [facility] [address] [place] [address] Dr. Nilay Gibbs Basophils/100 WBC (Bld) 0.2 % Normal 0.2-2.0 [facility] Comment on above: Performed By: #### A MM #### [facility] [address] [place] [address] Dr. Nilay Gibbs EO # 0.0 103/ul Normal 0.0-0.7 [facility] Comment on above: Performed By: #### A MM #### [facility] [address] [place] [address] Dr. Nilay Gibbs Eosinophils/100 WBC (Bld) 0.3 % Critically low 0.9-7.0 [facility] Comment on above: Performed By: #### A MM #### [facility] [address] [place] [address] Dr. Nilay Gibbs Erythrocyte distribution width (RBC) [Ratio] 14.3 % Normal 11.0-15.0 [facility] Comment on above: Performed By: #### A MM #### [facility] [address] [place] [address] Dr. Nilay Gibbs Hematocrit (Bld) [Volume fraction] 39.3 % Critically low 42.0-54.0 [facility] Comment on above: Performed By: #### A MM #### [facility] [address] [place] [address] Dr. Nilay Gibbs Hemoglobin (Bld) [Mass/Vol] 13.1 g/dL Critically low 14.0-18.0 [facility] Comment on above: Performed By: #### A MM #### [facility] [address] [place] [address] Dr. Nilay Gibbs IG # 0.03 10e3/ul Normal 0.00-0.03 [facility] Comment on above: Performed By: #### A MM #### [facility] [address] [place] [address] Dr. Nilay Gibbs IG % 0.3 % Normal 0.0-0.5 [facility] Comment on above: Performed By: #### A MM #### [facility] [address] [place] [address] Dr. Nilay Gibbs LYMPH # 1.7 103/ul Normal 1.2-3.8 [facility] Comment on above: Performed By: #### A MM #### [facility] [address] [place] [address] Dr. Nilay Gibbs Lymphocytes/100 WBC (Bld) 14.5 % Critically low 20.5-60.0 [facility] Comment on above: Performed By: #### A MM #### [facility] [address] [place] [address] Dr. Nilay Gibbs MANUAL DIFF REQ NO Normal [facility] Comment on above: Performed By: #### A MM #### [facility] [address] [address] [address] Nilay Gibbs MCH (RBC) [Entitic mass] 29.2 pg Normal 25.9-34.0 [facility] Comment on above: Performed By: #### A MM #### [facility] [address] [place] [address] Dr. Nilay Gibbs MCHC (RBC) [Mass/Vol] 33.3 g/dL Normal 29.9-35.2 [facility] Comment on above: Performed By: #### A MM #### [facility] [address] [place] [address] Dr. Nilay Gibbs MCV (RBC) [Entitic vol] 87.5 fL Normal 80.0-94.0 [facility] Comment on above: Performed By: #### A MM #### [facility] [address] [place] [address] Dr. Nilay Gibbs MONO # 1.3 103/ul Critically high 0.3-0.8 [facility] Comment on above: Performed By: #### A MM #### [facility] [address] [place] [address] Dr. Nilay Gibbs Monocytes/100 WBC (Bld) 10.9 % Normal 1.7-12.0 [facility] Comment on above: Performed By: #### A MM #### [facility] [address] [place] [address] Dr. Nilay Gibbs NEUT # 8.7 103/ul Critically high 1.4-6.5 [facility] Comment on above: Performed By: #### A MM #### [facility] [address] [place] [address] Dr. Nilay Gibbs Neutrophils/100 WBC (Bld) 73.8 % Normal 43.0-75.0 [facility] Comment on above: Performed By: #### A MM #### [facility] [address] [place] [address] Dr. Nilay Gibbs Platelet mean volume (Bld) [Entitic vol] 10.9 fL Normal 9.5-13.5 [facility] Comment on above: Performed By: #### A MM #### [facility] [address] [address] [address] Nilay Gibbs PLT 171 103/ul Normal 150-450 [facility] Comment on above: Performed By: #### A MM #### [facility] [address] [address] [address] Nilay Gibbs RBC 4.49 106/ul Critically low 4.70-6.10 [facility] Comment on above: Performed By: #### A MM #### [facility] [address] [address] [address] Nilay Gibbs WBC 11.7 103/ul Critically high 4.0-11.0 [facility] Comment on above: Performed By: #### A MM #### [facility] [address] [place] [address] Dr. Nilay Gibbs CRPon 06-20-2022 CRP 25.4 mg/dL Critically high <=1.0 [facility] Comment on above: Performed By: #### C RP, CMP #### [facility] [address] [address] [address] Nilay Gibbs CULTURE BLOODon 06-20-2022 Microscopic examination of blood, culture Culture Observations: NO GROWTH AT 5 DAYS. Normal [facility] Comment on above: Performed By: #### C MP #### [facility] [address] [place] [address] Dr. Nilay Gibbs Microscopic examination of blood, culture Culture Observations: NO GROWTH AT 5 DAYS. Normal [facility] Comment on above: Performed By: #### C MP #### [facility] [address] [place] [address] Dr. Nilay Gibbs LACTATE/LACTIC ACIDon 2022 Lactate [Moles/Vol] 0.7 mmol/L Normal 0.4-2.0 [facility] Comment on above: Performed By: #### A MM #### [facility] [address] [place] [address] Dr. Nilay Gibbs PROF 14(COMP METB)on 023 Albumin [Mass/Vol] 3.8 g/dL Normal 3.4-5.0 [facility] Comment on above: Performed By: #### C RP, CMP #### [facility] [address] [place] [address] Dr. Nilay Gibbs Albumin/Globulin [Mass ratio] 1.1 {ratio} Normal [facility] Comment on above: Performed By: #### C RP, CMP #### [facility] [address] [place] [address] Dr. Nilay Gibbs ALP [Catalytic activity/Vol] 85 U/L Normal 46-116 [facility] Comment on above: Performed By: #### C RP, CMP #### [facility] [address] [place] [address] Dr. Nilay Gibbs ALT [Catalytic activity/Vol] 29 U/L Normal 16-63 [facility] Comment on above: Performed By: #### C RP, CMP #### [facility] [address] [place] [address] Dr. Nilay Gibbs Anion gap [Moles/Vol] 15.2 mmol/L Normal [facility] Comment on above: Performed By: #### C RP, CMP #### [facility] [address] [place] [address] Dr. Nilay Gibbs AST [Catalytic activity/Vol] 20 U/L Normal 15-37 [facility] Comment on above: Performed By: #### C RP, CMP #### [facility] [address] [place] [address] Dr. Nilay Gibbs Bilirubin [Mass/Vol] 1.1 mg/dL Critically high 0.2-1.0 [facility] Comment on above: Performed By: #### C RP, CMP #### [facility] [address] [place] [address] Dr. Nilay Gibbs Calcium [Mass/Vol] 9.4 mg/dL Normal 8.5-10.1 [facility] Comment on above: Performed By: #### C RP, CMP #### [facility] [address] [place] [address] Dr. Nilay Gibbs Chloride [Moles/Vol] 99 mmol/L Normal 98-107 [facility] Comment on above: Performed By: #### C RP, CMP #### [facility] [address] [place] [address] Dr. Nilay Gibbs CO2 [Moles/Vol] 25.7 mmol/L Normal 21.0-32.0 [facility] Comment on above: Performed By: #### C RP, CMP #### [facility] [address] [address] [address] Nilay Gibbs Creatinine [Mass/Vol] 1.32 mg/dL Critically high 0.70-1.30 [facility] Comment on above: Performed By: #### C RP, CMP #### [facility] [address] [place] [address] Dr. Nilay Gibbs EGFR-AF SRI LANKAN >60 Normal >=60 [facility] Comment on above: Performed By: #### C RP, CMP #### [facility] [address] [place] [address] Dr. Nilay Gibbs EGFR-NON AF SRI LANKAN >60 Normal >=60 [facility] Comment on above: Performed By: #### C RP, CMP #### [facility] [address] [place] [address] Dr. Nilay Gibbs Globulin (S) [Mass/Vol] 3.6 g/dL Normal [facility] Comment on above: Performed By: #### C RP, CMP #### [facility] [address] [place] [address] Dr. Nilay Gibbs Glucose [Mass/Vol] 106 mg/dL Normal 74-106 [facility] Comment on above: Performed By: #### C RP, CMP #### [facility] [address] [address] [address] Nilay Gibbs Potassium [Moles/Vol] 3.9 mmol/L Normal 3.5-5.1 [facility] Comment on above: Performed By: #### C RP, CMP #### [facility] [address] [place] [address] Dr. Nilay Gibbs Protein [Mass/Vol] 7.4 g/dL Normal 6.4-8.2 [facility] Comment on above: Performed By: #### C RP, CMP #### [facility] [address] [place] [address] Dr. Nilay Gibbs Sodium [Moles/Vol] 136 mmol/L Normal 136-145 [facility] Comment on above: Performed By: #### C RP, CMP #### [facility] [address] [place] [address] Dr. Nilay Gibbs Urea nitrogen [Mass/Vol] 10.0 mg/dL Normal 7.0-18.0 [facility] Comment on above: Performed By: #### C RP, CMP #### [facility] [address] [place] [address] Dr. Nilay Gibbs Urea nitrogen/Creatinine [Mass ratio] 7.6 mg/mg Normal [facility] Comment on above: Performed By: #### C RP, CMP #### [facility] [address] [place] [address] Dr. Nilay Gibbs SED RATE [facility] 2022 SED RATE 46 mm/hr Critically high <=15 [facility] Comment on above: Performed By: #### S EDR #### [facility] [address] [place] [address] Dr. Nilay Gibbs Covid-19 PCR ([facility])on SARS-CoV-2 (COVID-19) RNA TALHA+probe Ql (Unsp spec) Not detected Normal NOT DETECTED [facility] Comment on above: Result Comment: When [...] for this test is supported by the [place] of [employer] and Human Service's declaration that [...] used). Performed By: #### A MM #### [facility] [address] [place] [address] Dr. Nilay Gibbs INFLUENZA A AND B [facility]on [facility] Normal [facility] Comment on above: Result Comment: Nega tive for Flu A protein angiten. Infection due to Flu A cannot be ruled out. Flu A angiten in the sample may be below the detection limit of the test. Performed By: #### A MM #### [facility] [address] [place] [address] Dr. Nilay Gibbs INFLUBNEGH SEE BELOW Normal [facility] Comment on above: Result Comment: Nega tive for Flu B protein antigen. Infection due to Flu B cannot be ruled out. Flu B antigen in the sample may be below the detection limit of the test. Performed By: #### A MM #### [facility] [address] [place] [address] Dr. Nilay Gibbs INFLUENZA A AG Negative Normal NEGATIVE SEE COMMENT [facility] Comment on above: Performed By: #### A MM #### [facility] [address] [place] [address] Dr. Nilay Gibbs INFLUENZA B AG Negative Normal NEGATIVE SEE COMMENT [facility] Comment on above: Performed By: #### A MM #### [facility] [address] [place] [address] Dr. Nilay Gibbs INTERNAL CONTROLS Within Normal Limits Normal Wi thin Normal Limits [facility] Comment on above: Performed By: #### A MM #### [facility] [address] [place] [address] Dr. Nilay Gibbs Cholesterol [Mass/volume] in Serum or PlasmaOrdered By: Adam Young on 12-08-2021 Cholesterol [Mass/Vol] 205 mg/dL 140-200 [facility] Comment on above: Chol less than 200 m g/dl low riskChol 201-239 mg/dl borderline riskChol 240 mg/dl and greater high risk Cholesterol in LDL Calc [Mas s/Vol]Ordered By: Adam Young on 12-08-2021 Cholesterol in LDL [Mass/Vol] 120 mg/dL 0-100 [facility] Comment on above: LDL ATP III CLASSIFI CATIONLDL less than 100 mg/dL OptimalLDL 100-129 mg/dL Near or above optimalLDL 130-159 mg/dL Borderline highLDL 160-189 mg/dL HighLDL greater than 189 mg/dL Very high Cholesterol in VLDL Calc [Ma ss/Vol]Ordered By: Adam Young on 12-08-2021 Cholesterol in VLDL [Mass/Vol] 37 mg/dL [facility] No Panel InformationOrdered By: Adam Young on 12-08-2021 25-Hydroxy Vitamin D Total 50.6 ng/mL 30-100 [facility] Comment on above: VITAMIN D STATUS [...] Cholesterol in HDL [Mass/Vol] 47 mg/dL 29-71 [facility] Comment on above: HDL CHOL ATP-III CLA SSIFICATION Cardiovascular RiskHDL > or equal to 60 mg/dL LOWHDL < 40 mg/dL HIGH Serum or plasma total choles terol/high density lipoprotein (HDL) cholesterol mass ratOrdered By: Adam Young on 12-08-2021 Cholesterol.total/Ch olesterol in HDL [Mass ratio] 4.4 {ratio} <5.0 [facility] TSH DL <= 0.005 mIU/L QnOrde red By: Adam Young on 12-08-2021 TSH Qn 0.75 m[IU]/L 0.45-5.33 [facility] Triglyceride [Mass/volume] i n Serum or PlasmaOrdered By: Adam Young on 12-08-2021 Triglyceride [Mass/Vol] 188 mg/dL 35-149 [facility] Comment on above: TRIG ATP III CLASSIF ICATIONTRIG less than 150 mg/dL NormalTRIG 150-199 mg/dL Borderline highTRIG 200-500 mg/dL High TRIG greater than 500 mg/dL Very highStandard traceable to the Center for Disease Conrtrol and Prevention (CDC) test method. Covid-19 PCR ([facility])on SARS-CoV-2 (COVID-19) RNA TALHA+probe Ql (Unsp spec) Not detected Normal NOT DETECTED [facility] Comment on above: Result Comment: When [...] for this test is supported by the [employer] of Health and Human Service's declaration that [...] used). Performed By: #### C MP #### [facility] [address] [place] [address] Dr. Nilay Gibbs ETHANOL (BLD ALC)on 12-08-19 22 Ethanol [Mass/Vol] 288 mg/dL Normal [facility] Comment on above: Performed By: #### C MP #### [facility] [address] [place] [address] Dr. Nilay Gibbs ALC NOTE NOTE: 80 mg/dl is th e legal limit for a blood alcohol level Normal [facility] Comment on above: Performed By: #### C MP #### [facility] [address] [place] [address] Dr. Nilay Gibbs Performed By: #### A MM #### [facility] [address] [place] [address] Dr. Nilay Gibbs Ethanol [Mass/Vol] 130 mg/dL Normal [facility] Comment on above: Performed By: #### A MM #### [facility] [address] [place] [address] Dr. Nilay Gibbs Ethanol [Mass/Vol] 196 mg/dL Normal [facility] Comment on above: Performed By: #### A MM #### [facility] [address] [place] [address] Dr. Nilay Gibbs ACETAMINOPHENon 12-06-2021 Acetaminophen [Mass/Vol] ug/mL Critically low 10.0-30.0 [facility] Comment on above: Performed By: #### A CET #### [facility] [address] [place] [address] Dr. Nilay Gibbs AMMONIAon 12-06-2021 Ammonia (P) [Moles/Vol] 22 umol/L Normal 11-32 [facility] Comment on above: Performed By: #### A MM #### [facility] [address] [place] [address] Dr. Nilay Gibbs CBC AUTO DIFFon 12-06-2021 BASO # 0.0 103/ul Normal 0.0-0.1 [facility] Comment on above: Performed By: #### A MM #### [facility] [address] [place] [address] Dr. Nilya Gibbs Basophils/100 WBC (Bld) 0.5 % Normal 0.2-2.0 [facility] Comment on above: Performed By: #### A MM #### [facility] [address] [place] [address] Dr. Nilay Gibbs EO # 0.1 103/ul Normal 0.0-0.7 [facility] Comment on above: Performed By: #### A MM #### [facility] [address] [place] [address] Dr. Nilay Gibbs Eosinophils/100 WBC (Bld) 1.0 % Normal 0.9-7.0 [facility] Comment on above: Performed By: #### A MM #### [facility] [address] [place] [address] Dr. Nilay Gibbs Erythrocyte distribution width (RBC) [Ratio] 12.9 % Normal 11.0-15.0 [facility] Comment on above: Performed By: #### A MM #### [facility] [address] [place] [address] Dr. Nilay Gibbs Hematocrit (Bld) [Volume fraction] 40.5 % Critically low 42.0-54.0 [facility] Comment on above: Performed By: #### A MM #### [facility] [address] [place] [address] Dr. Nilay Gibbs Hemoglobin (Bld) [Mass/Vol] 13.9 g/dL Critically low 14.0-18.0 [facility] Comment on above: Performed By: #### A MM #### [facility] [address] [place] [address] Dr. Nilay Gibbs IG # 0.02 10e3/ul Normal 0.00-0.03 [facility] Comment on above: Performed By: #### A MM #### [facility] [address] [place] [address] Dr. Nilay Gibbs IG % 0.3 % Normal 0.0-0.5 [facility] Comment on above: Performed By: #### A MM #### [facility] [address] [place] [address] Dr. Nilay Gibbs LYMPH # 2.7 103/ul Normal 1.2-3.8 [facility] Comment on above: Performed By: #### A MM #### [facility] [address] [place] [address] Dr. Nilay Gibbs Lymphocytes/100 WBC (Bld) 45.2 % Normal 20.5-60.0 [facility] Comment on above: Performed By: #### A MM #### [facility] [address] [place] [address] Dr. Nilay Gibbs MANUAL DIFF REQ NO Normal [facility] Comment on above: Performed By: #### A MM #### [facility] [address] [place] [address] Dr. Nilay Gibbs MCH (RBC) [Entitic mass] 29.8 pg Normal 25.9-34.0 [facility] Comment on above: Performed By: #### A MM #### [facility] [address] [place] [address] Dr. Nilay Gibbs MCHC (RBC) [Mass/Vol] 34.3 g/dL Normal 29.9-35.2 [facility] Comment on above: Performed By: #### A MM #### [facility] [address] [place] [address] Dr. Nilay Gibbs MCV (RBC) [Entitic vol] 86.9 fL Normal 80.0-94.0 [facility] Comment on above: Performed By: #### A MM #### [facility] [address] [place] [address] Dr. Nilay Gibbs MONO # 0.4 103/ul Normal 0.3-0.8 [facility] Comment on above: Performed By: #### A MM #### [facility] [address] [place] [address] Dr. Nilay Gibbs Monocytes/100 WBC (Bld) 6.3 % Normal 1.7-12.0 [facility] Comment on above: Performed By: #### A MM #### [facility] [address] [place] [address] Dr. Nilay Gibbs NEUT # 2.7 103/ul Normal 1.4-6.5 [facility] Comment on above: Performed By: #### A MM #### [facility] [address] [place] [address] Dr. Nilay Gibbs Neutrophils/100 WBC (Bld) 46.7 % Normal 43.0-75.0 [facility] Comment on above: Performed By: #### A MM #### [facility] [address] [place] [address] Dr. Nilay Gibbs Platelet mean volume (Bld) [Entitic vol] 10.4 fL Normal 9.5-13.5 [facility] Comment on above: Performed By: #### A MM #### [facility] [address] [address] [address] Nilay Gibbs PLT 237 103/ul Normal 150-450 [facility] Comment on above: Performed By: #### A MM #### [facility] [address] [place] [address] Dr. Nilay Gibbs RBC 4.66 106/ul Critically low 4.70-6.10 [facility] Comment on above: Performed By: #### A MM #### [facility] [address] [address] [address] Nilay Gibbs WBC 5.9 103/ul Normal 4.0-11.0 [facility] Comment on above: Performed By: #### A MM #### [facility] [address] [place] [address] Dr. Nilay Gibbs DRUG SCREEN RAPID (URINE)on 12-06-2021 AMP Negative Normal NEGATIVE [facility] Comment on above: Performed By: #### D RUGRPD #### [facility] [address] [place] [address] Dr. Nilay Gibbs BAR Negative Normal NEGATIVE [facility] Comment on above: Performed By: #### D RUGRPD #### [facility] [address] [place] [address] Dr. Nilay Gibbs BUP Negative Normal NEGATIVE [facility] Comment on above: Performed By: #### D RUGRPD #### [facility] [address] [place] [address] Dr. Nilay Gibbs BZO Positive Abnormal NEGATIVE [facility] Comment on above: Performed By: #### D RUGRPD #### [facility] [address] [place] [address] Dr. Nilay Gibbs ROQUE Negative Normal NEGATIVE [facility] Comment on above: Performed By: #### D RUGRPD #### [facility] [address] [place] [address] Dr. Nilay Gibbs CUT-OFFS SEE BELOW Normal [facility] Comment on above: Result Comment: AMP [...] ng/mL Performed By: #### D RUGRPD #### [facility] [address] [place] [address] Dr. Nilay Gibbs DRUG CUT HEADER DRUG CLASS TEST SYST EM CUT-OFF CONCENTRATIONS ARE FOLLOWS: Normal [facility] Comment on above: Performed By: #### D RUGRPD #### [facility] [address] [place] [address] Dr. Nilay Gibbs mAMP Negative Normal NEGATIVE [facility] Comment on above: Performed By: #### D RUGRPD #### [facility] [address] [place] [address] Dr. Nilay Gibbs MTD Negative Normal NEGATIVE [facility] Comment on above: Performed By: #### D RUGRPD #### [facility] [address] [place] [address] Dr. Nilay Gibbs OPI Negative Normal NEGATIVE [facility] Comment on above: Performed By: #### D RUGRPD #### [facility] [address] [place] [address] Dr. Nilay Gibbs OXY Negative Normal NEGATIVE [facility] Comment on above: Performed By: #### D RUGRPD #### [facility] [address] [place] [address] Dr. Nilay Gibbs PCP Negative Normal NEGATIVE [facility] Comment on above: Performed By: #### D RUGRPD #### [facility] [address] [place] [address] Dr. Nilay Gibbs PPX Negative Normal NEGATIVE [facility] Comment on above: Performed By: #### D RUGRPD #### [facility] [address] [place] [address] Dr. Nilay Gibbs TCA Negative Normal NEGATIVE [facility] Comment on above: Performed By: #### D RUGRPD #### [facility] [address] [place] [address] Dr. Nilya Gibbs THC Negative Normal NEGATIVE [facility] Comment on above: Performed By: #### D RUGRPD #### [facility] [address] [place] [address] Dr. Nilay Gibbs ETHANOL (BLD ALC)on 12-07-19 22 ALC NOTE NOTE: 80 mg/dl is th e legal limit for a blood alcohol level Normal [facility] Comment on above: Performed By: #### C MP #### [facility] [address] [place] [address] Dr. Nilay Gibbs Ethanol [Mass/Vol] 336 mg/dL Normal [facility] Comment on above: Performed By: #### C MP #### [facility] [address] [place] [address] Dr. Nilay Gibbs PROF 14(COMP METB)on 022 Albumin [Mass/Vol] 4.2 g/dL Normal 3.4-5.0 [facility] Comment on above: Performed By: #### C MP #### [facility] [address] [place] [address] Dr. Nilay Gibbs Albumin/Globulin [Mass ratio] 1.3 {ratio} Normal [facility] Comment on above: Performed By: #### C MP #### [facility] [address] [place] [address] Dr. Nilay Gibbs ALP [Catalytic activity/Vol] 104 U/L Normal 46-116 [facility] Comment on above: Performed By: #### C MP #### [facility] [address] [place] [address] Dr. Nilay Gibbs ALT [Catalytic activity/Vol] 41 U/L Normal 16-63 [facility] Comment on above: Performed By: #### C MP #### [facility] [address] [place] [address] Dr. Nilay Gibbs Anion gap [Moles/Vol] 11.5 mmol/L Normal [facility] Comment on above: Performed By: #### C MP #### [facility] [address] [place] [address] Dr. Nilay Gibbs AST [Catalytic activity/Vol] 37 U/L Normal 15-37 [facility] Comment on above: Performed By: #### C MP #### [facility] [address] [address] [address] Nilay Gibbs Bilirubin [Mass/Vol] 0.2 mg/dL Normal 0.2-1.0 [facility] Comment on above: Performed By: #### C MP #### [facility] [address] [place] [address] Dr. Nilay Gibbs Calcium [Mass/Vol] 8.6 mg/dL Normal 8.5-10.1 [facility] Comment on above: Performed By: #### C MP #### [facility] [address] [address] [address] Nilay Gibbs Chloride [Moles/Vol] 97 mmol/L Critically low 98-107 [facility] Comment on above: Performed By: #### C MP #### [facility] [address] [place] [address] Dr. Nilay Gibbs CO2 [Moles/Vol] 26.0 mmol/L Normal 21.0-32.0 [facility] Comment on above: Performed By: #### C MP #### [facility] [address] [address] [address] Nilay Gibbs Creatinine [Mass/Vol] 1.47 mg/dL Critically high 0.70-1.30 [facility] Comment on above: Performed By: #### C MP #### [facility] [address] [address] [address] Nilay Gibbs EGFR-AF SRI LANKAN >60 Normal >=60 [facility] Comment on above: Performed By: #### C MP #### [facility] [address] [place] [address] Dr. Nilay Gibbs EGFR-NON AF SRI LANKAN 56 mL/min/1.73m2 Critically low >=60 [facility] Comment on above: Performed By: #### C MP #### [facility] [address] [address] [address] Nilay Gibbs Globulin (S) [Mass/Vol] 3.2 g/dL Normal [facility] Comment on above: Performed By: #### C MP #### [facility] [address] [address] [address] Nilay Gibbs Glucose [Mass/Vol] 117 mg/dL Critically high 74-106 [facility] Comment on above: Performed By: #### C MP #### [facility] [address] [address] [address] Nilay Gibbs Potassium [Moles/Vol] 3.5 mmol/L Normal 3.5-5.1 [facility] Comment on above: Performed By: #### C MP #### [facility] [address] [address] [address] Nilay Gibbs Protein [Mass/Vol] 7.4 g/dL Normal 6.4-8.2 [facility] Comment on above: Performed By: #### C MP #### [facility] [address] [address] [address] Nilay Gibbs Sodium [Moles/Vol] 131 mmol/L Critically low 136-145 [facility] Comment on above: Performed By: #### C MP #### [facility] [address] [address] [address] Nilay Gibbs Urea nitrogen [Mass/Vol] 14.0 mg/dL Normal 7.0-18.0 [facility] Comment on above: Performed By: #### C MP #### [facility] [address] [address] [address] Nilay Gibbs Urea nitrogen/Creatinine [Mass ratio] 9.5 mg/mg Normal [facility] Comment on above: Performed By: #### C MP #### [facility] [address] [address] [address] Nilay Gibbs SALICYLATEon 12-06-2021 SALICYLATE <2.8 Normal <=19.9 [facility] Comment on above: Performed By: #### A MM #### [facility] [address] [address] [address] Nilay Gibbs MRI Shoulder w/o Lefton [...] by Stephen Ware on 11/11/2021 0955 Normal [facility] Model Activated partial thrombopla stin time (aPTT) in platelet poor plasma by coagulation aOrdered By: Kristal Goldberg on 09-27-2021 aPTT Coag (PPP) [Time] 34.7 s 25.1-36.5 [facility] Albumin [Mass/volume] in Ser um or PlasmaOrdered By: Kristal Goldberg on 09-27-2021 Albumin [Mass/Vol] 4.1 g/dL 3.2-5.5 [facility] Basophils Auto (Bld) [#/Vol] Ordered By: Kristal Goldberg on 09-27-2021 Basophils (Bld) [#/Vol] 0.0 10*3/uL 0.0-0.2 [facility] Basophils/100 WBC Auto (Bld) Ordered By: Kristal Goldberg on 09-27-2021 Basophils/100 WBC (Bld) 0.3 % . [facility] Bilirubin Auto test strip Ql (U)Ordered By: Kristal Goldberg on 09-27-2021 Bilirubin Ql (U) Negative Negative [facility] Blood hemoglobin measurement (mass/volume)Ordered By: Kristal Goldberg on 09-27-2021 Hemoglobin (Bld) [Mass/Vol] 13.6 g/dL 13.0-17.0 [facility] Blood leukocytes automated c ount (number/volume)Ordered By: Kristal Goldberg on 09-27-2021 WBC (Bld) [#/Vol] 5.7 10*3/uL 4.5-11.0 [facility] CBC AUTO DIFFon 09-27-2021 BASO # 0.0 103/ul Normal 0.0-0.1 [facility] Comment on above: Performed By: #### A MM #### [facility] [address] [place] [address] Dr. Nilay Gibbs Basophils/100 WBC (Bld) 0.5 % Normal 0.2-2.0 [facility] Comment on above: Performed By: #### A MM #### [facility] [address] [place] [address] Dr. Nilay Gibbs EO # 0.1 103/ul Normal 0.0-0.7 [facility] Comment on above: Performed By: #### A MM #### [facility] [address] [address] [address] Nilay Gibbs Eosinophils/100 WBC (Bld) 1.6 % Normal 0.9-7.0 [facility] Comment on above: Performed By: #### A MM #### [facility] [address] [address] [address] Nilay Gibbs Erythrocyte distribution width (RBC) [Ratio] 14.0 % Normal 11.0-15.0 [facility] Comment on above: Performed By: #### A MM #### [facility] [address] [place] [address] Dr. Nilay Gibbs Hematocrit (Bld) [Volume fraction] 40.2 % Critically low 42.0-54.0 [facility] Comment on above: Performed By: #### A MM #### [facility] [address] [place] [address] Dr. Nilay Gibbs Hemoglobin (Bld) [Mass/Vol] 13.7 g/dL Critically low 14.0-18.0 [facility] Comment on above: Performed By: #### A MM #### [facility] [address] [place] [address] Dr. Nilay Gibbs IG # 0.01 10e3/ul Normal 0.00-0.03 [facility] Comment on above: Performed By: #### A MM #### [facility] [address] [place] [address] Dr. Nilay Gibbs IG % 0.2 % Normal 0.0-0.5 [facility] Comment on above: Performed By: #### A MM #### [facility] [address] [place] [address] Dr. Nilay Gibbs LYMPH # 2.1 103/ul Normal 1.2-3.8 [facility] Comment on above: Performed By: #### A MM #### [facility] [address] [place] [address] Dr. Nilay Gibbs Lymphocytes/100 WBC (Bld) 37.1 % Normal 20.5-60.0 [facility] Comment on above: Performed By: #### A MM #### [facility] [address] [place] [address] Dr. Nilay Gibbs MANUAL DIFF REQ NO Normal [facility] Comment on above: Performed By: #### A MM #### [facility] [address] [place] [address] Dr. Nilay Gibbs MCH (RBC) [Entitic mass] 30.1 pg Normal 25.9-34.0 [facility] Comment on above: Performed By: #### A MM #### [facility] [address] [place] [address] Dr. Nilay Gibbs MCHC (RBC) [Mass/Vol] 34.1 g/dL Normal 29.9-35.2 [facility] Comment on above: Performed By: #### A MM #### [facility] [address] [place] [address] Dr. Nilay Gibbs MCV (RBC) [Entitic vol] 88.4 fL Normal 80.0-94.0 [facility] Comment on above: Performed By: #### A MM #### [facility] [address] [address] [address] Nilay Gibbs MONO # 0.4 103/ul Normal 0.3-0.8 [facility] Comment on above: Performed By: #### A MM #### [facility] [address] [place] [address] Dr. Nilay Gibbs Monocytes/100 WBC (Bld) 7.2 % Normal 1.7-12.0 [facility] Comment on above: Performed By: #### A MM #### [facility] [address] [place] [address] Dr. Nilay Gibbs NEUT # 3.1 103/ul Normal 1.4-6.5 [facility] Comment on above: Performed By: #### A MM #### [facility] [address] [place] [address] Dr. Nilay Gibbs Neutrophils/100 WBC (Bld) 53.4 % Normal 43.0-75.0 [facility] Comment on above: Performed By: #### A MM #### [facility] [address] [place] [address] Dr. Nilay Gibbs Platelet mean volume (Bld) [Entitic vol] 10.3 fL Normal 9.5-13.5 [facility] Comment on above: Performed By: #### A MM #### [facility] [address] [place] [address] Dr. Nilay Gibbs PLT 254 103/ul Normal 150-450 [facility] Comment on above: Performed By: #### A MM #### [facility] [address] [place] [address] Dr. Nilay Gibbs RBC 4.55 106/ul Critically low 4.70-6.10 [facility] Comment on above: Performed By: #### A MM #### [facility] [address] [place], [place] [address] Dr. Nilay Gibbs WBC 5.7 103/ul Normal 4.0-11.0 [facility] Comment on above: Performed By: #### A MM #### [facility] [address] [place], [place] [address] HEAD WO CONon [...] RUFINA MARIN Date: 2021-09-27 10:27 Normal [facility] CTA HEAD WO W CONon 09-28-19 [...] by: NEL KING Date: 2021-09-27 12:19 Normal [facility] CTA NECK WO W CONon 09-28-19 22 [...] NEL KING Date: 2021-09-27 12:06 Normal [facility] Creatine kinase [Enzymatic a ctivity/volume] in Serum or PlasmaOrdered By: Kristal Goldberg on 09-27-2021 CK [Catalytic activity/Vol] 181 U/L 22-269 [facility] Creatinine and Glomerular fi ltration rate.predicted panel (S/P/Bld)Ordered By: Kristal Goldberg on 09-27-2021 Creatinine [Mass/Vol] 1.36 mg/dL 0.64-1.27 [facility] Eosinophils Auto (Bld) [#/Vo l]Ordered By: Kristal Goldberg on 09-27-2021 Eosinophils (Bld) [#/Vol] 0.1 10*3/uL 0.0-0.45 [facility] Eosinophils/100 WBC Auto (Bl d)Ordered By: Kristal Goldberg on 09-27-2021 Eosinophils/100 WBC (Bld) 1.2 % . [facility] Erythrocyte distribution wid th Auto (RBC) [Ratio]Ordered By: Kristal Goldberg on 09-27-2021 Erythrocyte distribution width (RBC) [Ratio] 14.5 % 12.0-14.8 [facility] Estimated glomerular filtrat ion rate (GFR) non- AmericanOrdered By: Kristal Goldberg on 09-27-2021 GFR/1.73 sq M.predicted among non-blacks MDRD (S/P/Bld) [Vol rate/Area] > 60 mL/Min [facility] Globulin Calc (S) [Mass/Vol] Ordered By: Kristal Goldberg on 09-27-2021 Globulin (S) [Mass/Vol] 2.4 g/dL [facility] Hematocrit Auto (Bld) [Volum e fraction]Ordered By: Kristal Goldberg on 09-27-2021 Hematocrit (Bld) [Volume fraction] 40.8 % 38.8-50.0 [facility] Ketones Auto test strip (U) [Mass/Vol]Ordered By: Kristal Goldberg on 09-27-2021 Ketones (U) [Mass/Vol] Negative Negative [facility] - CoagulationOrde red By: Kristal Goldberg on 09-27-2021 PT Coag (PPP) [Time] 11.8 s 9.0-12.9 [facility] - Hematology and Cell countsOrdered By: Kristal Goldberg on 09-27-2021 Nucleated RBC/100 WBC (Bld) [Ratio] 0.0 % 0-0.5 [facility] Lymphocytes Auto (Bld) [#/Vo l]Ordered By: Kristal Goldberg on 09-27-2021 Lymphocytes (Bld) [#/Vol] 1.8 10*3/uL 1.00-4.8 [facility] Lymphocytes/100 WBC Auto (Bl d)Ordered By: Kristal Goldberg on 09-27-2021 Lymphocytes/100 WBC (Bld) 31.2 % . [facility] MCH Auto (RBC) [Entitic mass ]Ordered By: Kristal Goldberg on 09-27-2021 MCH (RBC) [Entitic mass] 30.1 pg 27.5-35.2 [facility] MCHC Auto (RBC) [Mass/Vol]Or dered By: Kristal Goldberg on 09-27-2021 MCHC (RBC) [Mass/Vol] 33.4 g/dL 32.5-35.6 [facility] MCV Auto (RBC) [Entitic vol] Ordered By: Kristal Goldberg on 09-27-2021 MCV (RBC) [Entitic vol] 90.3 fL 83.5-101 [facility] Monocytes Auto (Bld) [#/Vol] Ordered By: Kristal Goldberg on 09-27-2021 Monocytes (Bld) [#/Vol] 0.3 10*3/uL 0.0-0.8 [facility] Monocytes/100 WBC Auto (Bld) Ordered By: Kristal Goldberg on 09-27-2021 Monocytes/100 WBC (Bld) 6.0 % . [facility] Neutrophils Auto (Bld) [#/Vo l]Ordered By: Kristal Goldberg on 09-27-2021 Neutrophils (Bld) [#/Vol] 3.5 10*3/uL 1.8-7.7 [facility] Neutrophils/100 WBC Auto (Bl d)Ordered By: Kristal Goldberg on 09-27-2021 Neutrophils/100 WBC (Bld) 61.3 % . [facility] No Panel InformationOrdered By: Kristal Goldberg on 09-27-2021 Estimated GFR () > 60 mL/Min [facility] Comment on above: GFR estimated refere nce range: According to KDOQI guidelines, <60 ml/min/1.73m2 is sufficient to diagnose a patient with chronic kidney disease. Pharmacy Creatinine Clearance (Chem 94.06 [facility] PROF CHEM 8 ([facility] MET)on Anion gap [Moles/Vol] 10.0 mmol/L Normal [facility] Comment on above: Performed By: #### C MP #### [facility] [address] [address] [address] Nilay Gibbs Calcium [Mass/Vol] 9.4 mg/dL Normal 8.5-10.1 [facility] Comment on above: Performed By: #### C MP #### [facility] [address] [address] [address] Nilay Gibbs Chloride [Moles/Vol] 103 mmol/L Normal 98-107 [facility] Comment on above: Performed By: #### C MP #### [facility] [address] [address] [address] Nilay Gibbs CO2 [Moles/Vol] 27.6 mmol/L Normal 21.0-32.0 [facility] Comment on above: Performed By: #### C MP #### [facility] [address] [address] [address] Nilay Gibbs Creatinine [Mass/Vol] 1.39 mg/dL Critically high 0.70-1.30 [facility] Comment on above: Performed By: #### C MP #### [facility] [address]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 stopped drinking Nov 2021. He started drinking some since [facility]. -he had 2 flares of joint pain [...] DAY allopurinol (ZYLO (more content not included)... [facility] 06-29-2022 Miscellaneous Notes Called and [...] 365 Days Visit Type Date Time Department [facility] 08/14/2022 11:40 AM [facility] REJ CBC: None on file in [...] use of medications documented in this encounter [facility] 04-01-2022 Miscellaneous Notes The following approved [...] 365 Days Visit Type Date Time Department [facility] 08/14/2022 11:40 AM [facility] REJ CBC: None on file in [...] use of medications documented in this encounter [facility] 01-01-2022 Instructions Delmy Boyle MD - [...] at your visit. documented in this encounter [facility] 01-01-2022 History of Present illness Narrative [...] arthritic flares once every 4 months. Saw patient care technician instructor Dr. Jaime in [place] who did diagnostic knee aspiration which according to patient was positive for uric acid crystals. Treated with steroids and continued allopurinol. He has not seen Dr. Jaime since 2014. In 2014, he was hospitalized in [place] for acute polyarthritis. Saw patient care technician instructor while in hospital who told him that he possibly had RA. Discharged on steroids. His PCP switched him from allopurinol to Uloric Jan 2017. He also takes colchicine prn. No reduction in frequency or severity of his joint flares with Uloric. In 2016, he has been hospitalized 7-8 times for acute joint flares. Each time he is treated with steroids. 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 Rheumatology Delmy Boyle MD Upcoming Rheumatology Appointments - Next 365 Days Visit Type Date Time Department [facility] 01/01/2022 11:20 AM [facility] REJ CBC: None on file in [...] Lab Orders None documented in this encounter [facility] 12-10-2021 Discharge summary Note Date/Time December 10, 2021 10:19am [facility] EN[facility] [address] [place] [address] Discharge Summary Signed Patient: Nick Wray MR#: [id number] : 1990 Acct:[id number] Age/Sex: 31 / M Adm Date: 2 Loc: Room: [address] [place] [address]: Adam Young MD Copies to: MD Adam Lwa MD Rugen M Alda, MD~ Providers Date [...] called EMS and he was taken to [facility] and subsequently brought here.? He says [...] No activity restrictions. 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 (insert date/time here) Intake: (Insert date/time here) Please bring a copy of your photo ID, insurance card, and proof of household income.? Psychiatry: (Insert date/time here) Group: (Insert date/time here ) ) Documented By: Nicola Leyva MD 2 1016 Signed By: <Electronically signed by Nicola Leyva MD> 12/10/[address] [facility] Work Phone: 1(790) 656-846310-11-2022 Progress note Author Nicola pelayo [facility] December 09, 2021 10:42am Note Date/Time December 09, 2021 8 :48am [facility] EN[facility] [address] [place] [address] Psychiatry Progress Note Signed Patient: Nick Wray MR#: [id number] : 1990 Acct:[id number] Age/Sex: 31 / M Adm Date: 2 Loc: Room: [address] [place] [address] Type : ADM IN Attending Dr: Adam [...] signed by Nicola Leyva MD> 12/09/[address] [facility] Work Phone: 1(549) 659-118210-10-2022 History and physical note Author Nicola pelayo [facility] December 08, 2021 1:32pm Note Date/Time December 08, 2021 1 2:43pm [facility] [address] [place] [address] Psychiatry H&P Signed Patient: Nick Wray MR#: [id number] : 1990 Acct:[id number] Age/Sex: 31 / M Adm Date: 2 Loc: Room: [address] [place] [address] Type: ADM IN Attending Dr: Adam Young [...] called EMS and he was taken to [facility] and subsequently brought here. 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 Author Type: [...] BY: RT Kanchan(R) November 29, 2020 10:24 [id number] NoteHNO ID: [id number] Author: Felicitas Perez RDMS Service: Radiology Author Type: Anime Artist Type: Progress Notes Filed: 08/19/2020 12:51 PM [...] Not applicable SIGNED BY: Felicitas Perez RDMS [facility] August 19, 2020 12:51 [id number] NoteHNO ID: [id number] Author: Britany Mccann (Rt) Service: Radiology Author Type: Seafood Specialist Type: Progress Notes Filed: 04/02/2020 9:49 AM [...] BY: RT Ramy April 02, 2020 9:48 [id number] History of Past illness Narrative* Problem Noted Date Resolved Date Rheumatoid arthritis flare 04/25/201705/10 documented as of this encounter (statuses as of 08/05/2021) [place] [address] History of Past illness Narrative* Problem Noted Date Resolved Date Rheumatoid arthritis flare 04/25/201705/10 documented as of this encounter (statuses as of 12/22/2021) [place] [address] History of Past illness Narrative* Problem Noted Date Resolved Date Rheumatoid arthritis flare 04/25/201705/10 documented as of this encounter (statuses as of 01/01/2022) [place] [address] History of Past illness Narrative* Problem Noted Date Resolved Date Rheumatoid arthritis flare 04/25/201705/10 documented as of this encounter (statuses as of 04/02/2022) [place] [address] History of Past illness Narrative* Problem Noted Date Resolved Date Rheumatoid arthritis flare 04/25/201705/10 documented as of this encounter (statuses as of 06/30/2022) [place] [address] History of Past illness Narrative* Problem Noted Date Diagnosed Date Resolved Date Rheumatoid arthritis flare 04/25/2017 0 05/10/2017 documented as of this encounter (statuses as of 11/14/2022) [place] [address] History of Past illness Narrative* Problem Noted Date Diagnosed Date Resolved Date Rheumatoid arthritis flare 04/25/2017 0 05/10/2017 documented as of this encounter (statuses as of 11/14/2022) [facility] Diagnosis 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) documented [facility] noteNo assessment information availableOhio[facility] Work Phone: Evaluation note* Diagnosis Onset Date Resolution Status Major depressive disorder, recurrent, moderate acute [facility] Work Phone: evaluation note* Diagnosis 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) [facility] Diagnosis Idiopathic chronic gout of multiple sites with tophus- Primary Chronic gouty arthropathy with tophus (tophi) Encounter for long-term (current) use of medications Encounter for long-term (current) use of other medications Stage 3 chronic kidney disease, unspecified whether stage 3a or 3b CKD (HCC) [facility] Diagnosis 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) documented [facility] Diagnosis 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) documented [facility]* Diagnosis Other chronic pain- Primary documented in this encounter [facility] Discharge instructions Additional Instructions Rest Apply ice to affected area Avoid electronics Follow-up with neurology on Wednesday Tylenol Motrin if needed for discomfort Return here if you develop any numbness, tingling, unilateral weakness, unsteady gait, confusion or any other concernsOhio[facility] Work Phone: Hospital Discharge instructions Additional Instructions Regular diet. 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 Advance Directive(s) 04/25/2017 12:32 PM Advance Directive Response Recorded Date/ Time Advance Directives No September 27 7:04pm Chief Complaint and Reason for Visit Chief Complaint sent by [facility]/blurry vision/head swell Chief Complaint sent by [facility]/blurry vision/head swell Major Depression Reason [...] DATE CREATED AUTHOR AUTHOR'S ORGANIZ ATRAMIREZ 11/30/2020 [facility] DATE CREATED AUTHOR AUTHOR'S ORGANIZ ATION 11/11/2021 [facility] DATE CREATED AUTHOR AUTHOR'S ORGANIZ ATION 08/07/2022 [facility] DATE CREATED AUTHOR AUTHOR'S ORGANIZ ATION 01/14/2023 [facility] EPIC DATE CREATED AUTHOR AUTHOR'S ORGANIZ ATION 2023 [facility] DATE CREATED AUTHOR AUTHOR'S ORGANIZ ATION [facility]20[facility] DATE CREATED AUTHOR AUTHOR'S ORGANIZ ATION 03/09/2023 [facility] DATE CREATED AUTHOR AUTHOR'S ORGANIZ ATION 03/29/2023 [facility] Comments (unrecognize d section and content) In the event this informatio n is protected by the Federal Confidentiality of Alcohol and Drug Abuse Patient Records regulations: The Federal rules restrict any use of the information to criminally investigate or prosecute any alcohol or drug abuse patient.[facility] the event this information is protected by the Federal Confidentiality of Alcohol and Drug Abuse Patient Records regulations: The Federal rules restrict any use of the information to criminally investigate or prosecute any alcohol or drug abuse patient.[facility] HospitalIn the event this information is protected by the Federal Confidentiality of Alcohol and Drug Abuse Patient Records regulations: The Federal rules restrict any use of the information to criminally investigate or prosecute any alcohol or drug abuse patient.[facility] HospitalIn the event this information is protected by the Federal Confidentiality of Alcohol and Drug Abuse Patient Records regulations: The Federal rules restrict any use of the information to criminally investigate or prosecute any alcohol or drug abuse patient.[facility] Hospital[facility] the event this information is protected by the Federal Confidentiality of Alcohol and Drug Abuse Patient Records regulations: The Federal rules restrict any use of the information to criminally investigate or prosecute any alcohol or drug abuse patient.[facility] HospitalIn the event this information is protected by the Federal Confidentiality of Alcohol and Drug Abuse Patient Records regulations: The Federal rules restrict any use of the information to criminally investigate or prosecute any alcohol or drug abuse patient.[facility] Hospital[facility] the event this information is protected by the Federal Confidentiality of Alcohol and Drug Abuse Patient Records regulations: The Federal rules restrict any use of the information to criminally investigate or prosecute any alcohol or drug abuse patient.[facility] Care Teams (unrecognized sec tion and content) Railroad Conductor Relationship Specialty Start Date End Date Leydi [...] Young MD Admit Provider, Attending Provider Active Railroad Conductor Relationship Specialty Start Date End Date Leydi Aceves PCP - General Family Medicine 01/07/15 Railroad Conductor Relationship Specialty Start Date End Date Leydi Aceves PCP - General Family Medicine 01/07/15 Railroad Conductor Relationship Specialty Start Date End Date Leydi Aceves PCP - General Family Medicine 01/07/15 Railroad Conductor Relationship Specialty Start Date End Date Leydi Aceves PCP - General Family Medicine 01/07/15 Railroad Conductor Relationship Specialty Start Date End Date Leydi Aceves MD PCP - General Family Medicine 01/07/15 Railroad Conductor Relationship Specialty Start Date End Date Leydi Aceves MD PCP - General Family Medicine 01/07/15 Railroad Conductor Relationship Specialty Start Date End Date Leydi Aceves MD [address] [facility] [address] [place] [address] PCP - [facility] 07/29/22 Leydi Aceves MD [address] [facility] [address] [place] [address] PCP [facility] 05/30/22 Railroad Conductor Relationship Specialty Start Date End Date Leydi Aceves MD [address] [facility] [address] [place] [address] PCP - [facility] 07/29/22 Leydi Aceves MD [address] [facility] [address] [place] [address] PCP - [facility] 05/30/22 Goals (unrecognized section and content) Goals [...] BE BASED ON THE PRIMARY CLINICAL RECORDS. [employer] provides no warranty or guarantee of the accuracy or completeness of information in this document.
[2023-04-20] MEDS: LACTATED RINGER'S SOLUTION 1,000 ML 150 ML IV (23:45)
[2023-04-21] VITALS (9 sets, daily range): BP systolic 106; BP diastolic 71; PULSE 100–111; RESP 4–24; TEMP 36.8–36.9; O2SAT 92–114
[2023-04-21] LABS: Lactate/Lactic Acid 1.6 mmol/L (0.4-2.0)
[2023-04-21] MEDS: TRAMADOL HCL 50 MG TABLET PO (01:21)
[2023-04-21 04:38] LABS: Basophils Absolute Auto 0.1 10^3/uL (0.0-0.1); Basophils Percent Auto 0.6 % (0.2-2.0); Eosinophils Percent Auto 0.3 % (0.9-7.0); Hematocrit 43.1 % (42.0-54.0); Hemoglobin 14.1 g/dL (14.0-18.0); Immature Granulocytes Abs Auto 0.02 10^3/uL (0.00-0.03); Immature Granulocytes Pct Auto 0.3 % (0.0-0.5); Lymphocytes Absolute Auto 3.9 10^3/uL (1.2-3.8); Lymphocytes Percent Auto 49.8 % (20.5-60.0); Mean Corpuscular HGB Conc 32.7 g/dL (29.9-35.2); Mean Corpuscular Hemoglobin 29.5 pg (25.9-34.0); Mean Corpuscular Volume 90.2 fL (80.0-94.0); Mean Platelet Volume 9.8 fL (9.5-13.5); Monocytes Absolute Auto 0.4 10^3/uL (0.3-0.8); Monocytes Percent Auto 5.4 % (1.7-12.0); Neutrophils Absolute Auto 3.5 10^3/uL (1.4-6.5); Neutrophils Percent Auto 43.6 % (43.0-75.0); Platelet Count 357 10^3/uL (150-450); Red Blood Count 4.78 10^6/uL (4.70-6.10); Red Cell Distribution Width 14.5 % (11.0-15.0); White Blood Count 7.9 10^3/uL (4.0-11.0)
[2023-04-21 04:55] LABS: Ethanol 295 mg/dL
[2023-04-21 04:56] LABS: Magnesium 1.7 mg/dL (1.8-2.4); Phosphorus 3.9 mg/dL (2.6-4.7)
[2023-04-21 04:57] LABS: Alanine Aminotransferase 26 U/L (16-63); Albumin Level 3.3 g/dL (3.4-5.0); Alkaline Phosphatase 63 U/L (46-116); Anion Gap 14.3; Aspartate Amino Transferase 16 U/L (15-37); BUN Creatinine Ratio 5.6; Bilirubin Total 0.3 mg/dL (0.2-1.0); Calcium 8.4 mg/dL (8.5-10.1); Carbon Dioxide 26.8 mmol/L (21.0-32.0); Chloride 115 mmol/L (98-107); Estimated GFR (African America >60 (>=60); Estimated GFR (Non-African Ame >60 (>=60); Globulin 3.2 g/dL; Glucose 105 mg/dL (74-106); Potassium 4.1 mmol/L (3.5-5.1); Sodium 152 mmol/L (136-145); Total Protein 6.5 g/dL (6.4-8.2)
[2023-04-21] MEDS: LACTATED RINGER'S SOLUTION 1,000 ML 150 ML IV (06:12)
[2023-04-21] MEDS: ALLOPURINOL 300 MG TABLET 600 MG PO (09:23)
[2023-04-21] MEDS: THIAMINE MONONITRATE (VIT B1) 100 MG TABLET PO (09:24)
[2023-04-21] MEDS: GABAPENTIN 300 MG CAPSULE PO (09:24)
[2023-04-21] MEDS: AMLODIPINE BESYLATE 5 MG TABLET 10 MG PO (09:24)
[2023-04-21] MEDS: CLONIDINE HCL 0.1 MG TABLET PO (09:24)
[2023-04-21] MEDS: MULTIVITAMIN TABLET 1 TAB PO (09:24)
[2023-04-21] MEDS: CARVEDILOL 6.25 MG TABLET PO (09:24)
[2023-04-21] MEDS: FOLIC ACID 1 MG TABLET PO (09:24)
--- NOTE | 2023-04-21 11:10 | P.HP_ITS ---
H&P: HPI History of Present Illness Chief complaint: Acute Alcohol Intoxication, Altered Mentation Narrative: 33 y/o male to ER with acute alcohol intoxication and altered mental status. Patient called his dad and sounded intoxicated. Dad went to check on him and found him walking in driveway and seemed altered. Recently with increased social stressors and left him few months ago and having custody bateman for his 2 daughters. Dad and friend noticed increased alcohol use recently and concerned of possible unintentional overdose. Patient prescribed pain medication for RA. To ER and given IV fluids. Gave IV narcan and more alert. Labs showed alcohol of 449. CT head and neck normal. Admitted for monitoring. Started IV fluids and did well overnight. Alert and oriented this am. Reports increased anxiety and in counseling. Admits to increased alcohol use and states drinks until he gets a buzzed and wants to keep the buzz so drinks excessively. Review of Systems ROS Constitutional Denies: fever, chills or fatigue Cardiovascular Denies: chest pain, palpitations or edema Respiratory Denies: shortness of breath, cough or wheezing Gastrointestinal Denies: abdominal pain, nausea, vomiting or diarrhea Genitourinary Denies: painful urination [facility] Acute postoperative pain of knee ?G89.18 - Other acute postprocedural pain (ICD-10) ?M25.569 - Pain in unspecified knee (ICD-10) Visit for wound check ?Z51.89 - Encounter for other specified aftercare (ICD-10) Septic prepatellar bursitis of right knee ?M71.161 - Other infective bursitis, right knee (ICD-10) Acute viral syndrome ?B34.9 - Viral infection, unspecified (ICD-10) Diarrhea ?R19.7 - Diarrhea, unspecified (ICD-10) Rheumatoid arthritis flare ?M06.9 - Rheumatoid arthritis, unspecified (ICD-10) Polyarthralgia ?M25.50 - Pain in unspecified joint (ICD-10) Rheumatoid arthritis flare ?M06.9 - Rheumatoid arthritis, unspecified (ICD-10) Weakness ?R53.1 - Weakness (ICD-10) Mild shortness of breath ?R06.02 - Shortness of breath (ICD-10) Headache ?R51.9 - Headache, unspecified (ICD-10) Polyarthralgia ?M25.50 - Pain in unspecified joint (ICD-10) Flare of rheumatoid arthritis ?M06.9 - Rheumatoid arthritis, unspecified (ICD-10) Arthralgia ?M25.50 - Pain in unspecified joint (ICD-10) Drug-seeking behavior ?Z76.5 - Malingerer [conscious simulation] (ICD-10) Surgical History (Updated 04/20/23 @ 23:12 by April Sierra RN) Total knee replacement status ?Z96.659 - Presence of unspecified artificial knee joint (ICD-10) H/O shoulder surgery ?Z98.890 - Other specified postprocedural states (ICD-10) Social History (Updated 04/20/23 @ 23:15 by April Sierra RN) Smoking status: Never smoker Nicotine containing products detail: chew tobacco Highest level of school completed/degree received: Associate degree: occupational, technical, vocational program Meds Home Medications and Allergies Home Medications Medication Instructions Recorded Confirmed Type allopurinol 300 mg tablet 600 mg PO DAILY 08/31/22 04/21/23 History alprazolam 0.5 mg tablet 0.5 mg PO TID PRN anxiety 08/31/22 04/21/23 History amlodipine 10 mg tablet 10 mg PO QDAY 08/31/22 04/21/23 History carvedilol 6.25 mg tablet 6.25 mg PO Q12H 08/31/22 04/21/23 History celecoxib 100 mg capsule 100 mg PO DAILY PRN RA flare 08/31/22 04/21/23 History clonidine HCl 0.1 mg tablet 0.1 mg PO BID 08/31/22 04/21/23 History colchicine 0.6 mg tablet 0.6 mg PO .every other 08/31/22 04/21/23 History quetiapine 50 mg tablet See Rx Instructions PO .hs 08/31/22 04/21/23 History tramadol 50 mg tablet 50 mg PO Q6H PRN pain 08/31/22 04/21/23 History gabapentin 300 mg capsule 300 mg PO TID 02/15/23 04/21/23 History (Neurontin) oxycodone-acetaminophen 5 mg-325 1 tab PO Q6H PRN pain (scale score 02/16/23 04/21/23 Rx mg tablet (Percocet) 4-6) #10 tabs oxycodone-acetaminophen 5 mg-325 2 tab PO Q6H PRN pain (scale score 02/16/23 04/21/23 Rx mg tablet (Percocet) 7-10) #10 tabs cyclobenzaprine 10 mg tablet 10 mg PO TID PRN muscle spasm 03/06/23 04/21/23 History Allergies Allergy/AdvReac Type Severity Reaction Status Date / Time No Known Drug Allergies Allergy Verified 02/20/23 12:59 Exam Constitutional Vital Signs, click to edit/add: Last Vital Signs Temp 98.2 F 04/21/23 04:00 Pulse 109 H 04/21/23 07:00 Resp 15 04/21/23 07:00 BP 106/71 04/21/23 04:13 Pulse Ox 92 L 04/21/23 06:00 O2 Del Method Room Air 04/20/23 23:50 Documenting provider has reviewed patient's vital signs: yes Common normals: no apparent distress, oriented x3 and alert HENMT Common normals: normocephalic Eye Common normals: PERRL and EOMs intact bilaterally Respiratory Common normals: normal respiratory effort and clear to auscultation bilaterally Cardio Common normals: regular rate, regular rhythm, no gallops, no murmurs and no rub GI Common normals: Normal to inspection, nondistended, normoactive bowel sounds present and non-tender Extremity Common normals: no pedal edema Results Labs Labs: Short CBC 04/20/23 04/21/23 Range/Units 20:27 04:09 WBC 9.7 7.9 (4.0-11.0) 10^3/uL Hgb 15.8 14.1 (14.0-18.0) g/dL Hct 47.1 43.1 (42.0-54.0) % Plt Count 433 357 (150-450) 10^3/uL BMP 04/20/23 04/21/23 20:27 04:09 Sodium 147 H 152 H Potassium 3.3 L 4.1 Chloride 109 H 115 H Carbon Dioxide 24.4 26.8 BUN 6.0 L 6.0 L Creatinine 1.07 1.08 Glucose 123 H 105 Calcium 8.9 8.4 L Cardiac Enzymes 04/20/23 Range/Units 20:27 Total Creatine Kinase 104 (39-308) U/L CK-MB (CK-2) 0.70 (<=3.60) ng/mL Liver Function 04/20/23 04/21/23 Range/Units 20:27 04:09 Total Bilirubin 0.2 0.3 (0.2-1.0) mg/dL AST 23 16 (15-37) U/L ALT 31 26 (16-63) U/L Alkaline Phosphatase 77 63 (46-116) U/L Albumin 4.0 3.3 L (3.4-5.0) g/dL Urine 04/20/23 Range/Units 20:45 Urine Color Lt. yellow (YELLOW) Urine Clarity Clear (CLEAR) Urine pH 5.5 (5.0-9.0) Ur Specific [facility] <=1.005 A (1.005-1.025) Urine Protein Negative (NEG/TRACE) mg/dL Urine Glucose (UA) Negative (NEGATIVE) mg/dL Assessment and Plan Assessment and Plan (1) Alcoholic intoxication: (2) Alcohol abuse, episodic: (3) Altered mental status: (4) Benign essential hypertension: (5) MONO (generalized anxiety disorder): (6) Rheumatoid arthritis: (7) Gouty arthritis: Plan Admitted with acute alcohol intoxication and improved with IV fluids and time. Patient back to baseline and will discharge home. Discussed alcohol abuse and treatment. Recommended AA meetings. Patient reports in counseling and has discussed drinking with them. Resume home medication as directed. Continue counseling. Urinary Catheter Management Urinary Catheter Management Straight: Cath placed during this visit: yes Urethral indwelling: No Insertion date: 04/20/23 Insertion time: 20:50
--- NOTE | 2023-04-21 11:15 | CM.NOTE ---
Rounds made with Dr. Mariscal, pt can discharge to home today. Pt has appointment with [facility] scheduled for Wednesday.
--- NOTE | 2023-04-21 11:35 | SWNOTE1 ---
MAJO met with pt to discuss dc needs. Pt has an appointment with [facility] on Wednesday, he has been going to them since November and has established a good rapport with them. MAJO asked about AA resources and he stated [facility] has all this. He voiced he does not usually drink, but was stressed. At this time pt refuses any resources from MAJO and will go to counseling Wednesday.
[2023-04-21] MEDS: OXYCODONE HCL/ACETAMINOPHEN 5MG/325MG 1 TAB PO (12:33)
--- NOTE | 2023-04-22 15:12 | CM.DCFOLLOWU ---
Person spoke with: Nick How are you feeling? Better How is your pain? No pain Did you understand your discharge instructions? Yes Do you have any questions about your discharge instructions? No Were you given any prescriptions at discharge? No Were you able to get your prescriptions filled? N/A Do you understand how to take your medications as ordered? Yes Do you have any questions about your follow up appointment and do you plan to keep your follow up appointment? No and do plan on going to appt's Is there anything else that you would like to discuss? No Questions/Comments/Concerns/Other:
--- NOTE | 2023-04-23 13:24 | CM.DCFOLLOWU ---
First attempt at discharge follow up call, no answer. Unable to reach patient at this time.
--- NOTE | 2023-04-26 15:30 | CM.DCFOLLOWU ---
Person spoke with: Nick How are you feeling? Much better How is your pain? No pain Did you understand your discharge instructions? Yes Do you have any questions about your discharge instructions? No Were you given any prescriptions at discharge? No Were you able to get your prescriptions filled? N/A Do you understand how to take your medications as ordered? Yes Do you have any questions about your follow up appointment and do you plan to keep your follow up appointment? They are scheduled and I plan on going Is there anything else that you would like to discuss? No Questions/Comments/Concerns/Other:
== END 2023-04-21 12:43 | disposition home or self-care (01) ==
LOC: ER 22:10 → ICU 22:51
PROVIDERS: Physician Assistant; Registered Nurse; Admitting Provider Family Medicine; Emergency Provider Emergency Medicine; PCP Family Medicine; Visit Provider Family Medicine
DX: F10.129 Alcohol abuse with intoxication, unspecified (principal); M06.9 Rheumatoid arthritis, unspecified; I10 Essential (primary) hypertension; F41.1 Generalized anxiety disorder; M10.9 Gout, unspecified; R41.82 Altered mental status, unspecified; Y90.8 Blood alcohol level of 240 mg/100 ml or more; F17.220 Nicotine dependence, chewing tobacco, uncomplicated; Z79.899 Other long term (current) drug therapy; Z96.659 Presence of unspecified artificial knee joint
CPT/HCPCS: 36415; 70450; 71045; 72125; 80053; 80179; 80307; 80320; 80329; 81003; 82550; 82553; 83605; 83735; 83874; 84100; 84484; 85025; 87040; 93005; 96361; 96374; 96375; 99285; G0378; J1230; J2405

== ENCOUNTER 2023-05-08 18:46 | Emergency (ER) | payer OTHER, SELFPAY ==
[2023-05-08] VITALS (9 sets, daily range): BP systolic 151–180; BP diastolic 94–120; PULSE 80–102; RESP 15–18; TEMP 36.9; O2SAT 98; BMI 26.3
--- NOTE | 2023-05-08 18:54 | ECG_ITS ---
[facility] Test Date: 2023-05-08 Pat Name: TRU CARDOZA Department: Room: - Gender: Male Digester Hand: : 1990 Requested By: LEYDI ACEVES Order Number: [id number] Reading MD: IRA RICE Measurements Intervals [place] Rate: 90 P: 71 CA: 158 QRS: 38 QRSD: 96 T: 57 QT: 376 QTc: 423 Interpretive Statements 1100 Sinus rhythm 2440 Incomplete right bundle branch block 6220 Possible left atrial enlargement 9130 borderline ECG Electronically Signed On 05-09-2023 8:12:02 EDT by IRA RICE
--- OUTSIDE RECORDS SUMMARY | 2023-05-08 18:56 | XMS_ITS | CCD ---
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 to [facility] in [place], . Please advise. Patient has been identified by name and birthdate. Duration of symptoms: N/A Person calling: self Call patient at: at home [phone] (home) [phone] (cell) Was an appointment scheduled: No Closing statement: Results or non-symptom based questions: Thank you for calling [facility], your call will be returned within the [...] Fully Assessed Reason for Visit: Patient Request [0308] Order(s):predniSONE (DELTASONE) 5 mg tabletTake 6 tab [...] Encounter Status:Closed by DELMY BOYLE on 11/13/22 [facility] 08-14-2022 CNOV Office Visit (ANA ) -- NICK WRAY ([id number]) 1990 M Date Time Provider Department 08/14/22 [...] arthritic flares once every 4 months. 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 Jaime in [place] who did diagnostic knee aspiration which according to patient was positive for uric acid crystals. Treated with steroids and continued allopurinol. He has not seen Dr. Jaiem since 2014. In 2014, he was hospitalized in [place] for acute polyarthritis. Saw bureau chief while in hospital who told him that [...] shoulder surgery by Dr. Tc Coffey at [facility]. No post op complications. Currently on PT - still working on shoulder ROM. 4. GENERAL HEALTH MAINTENANCE -continue follow up on his CKD with nephrology -he will follow up with his PCP for his general health issues RTC in 7 mon, sooner if needed INTERVAL HISTORY -at [facility], he was advised to increase allopurinol from 300 mg BID to 350 mg qam and 300 mg qpm but he is actually taking allopurinol 400 mg qam and 300 qpm instead. Tolerating this higher dose without issues. -He stopped drinking Nov 2021. He started drinking some since [facility]. -he had 2 flares of joint pain [...] Speci men Type: BLOOD SPECIMEN Ordering Facility: [facility] Address: [address] [place] [address] Performed By: #### 3 084-1 #### [facility] CLIA [id number] [address] [place], [place] [address] AST SerPl-cCncon 08-12-2022 AST [Catalytic activity/Vol] 28 U/L Normal 14-40 [facility] Comment on above: Order Comment: Speci men Type: BLOOD SPECIMEN Ordering Facility: [facility] Address: [address] [place] [address] Performed By: #### 3 084-1 #### [facility] CLIA [id number] [address] [place] [address] Albumin SerPl-mCncon 023 Albumin [Mass/Vol] 4.5 g/dL Normal 3.9-4.9 [facility] Comment on above: Order Comment: Speci men Type: BLOOD SPECIMEN Ordering Facility: [facility] Address: [address] [place] [address] Performed By: #### 3 084-1 #### [facility] CLIA [id number] [address] [place], [place] [address] CBC W Auto Differential pane l (Bld)on 08-12-2022 Basophils (Bld) [#/Vol] 0.00 10*3/uL Normal <0.11 [facility] Comment on above: Order Comment: Speci men Type: BLOOD SPECIMEN Ordering Facility: [facility] Address: [address] Performed By: #### 5 7021-8 #### [facility] CLIA [id number] [address] [place] [address] LAB CLIA [id number] [facility] [place] [address] [place] Basophils/100 WBC (Bld) 0.0 % Normal [facility] Comment on above: Order Comment: Speci men Type: BLOOD SPECIMEN Ordering Facility: [facility] Address: [address] Performed By: #### 5 7021-8 #### [facility] CLIA [id number] [address] [place] [address] LAB CLIA [id number] [address] [place] [address] [place] Differential cell count method Nom (Bld) Manual Normal [facility] Comment on above: Order Comment: Speci men Type: BLOOD SPECIMEN Ordering Facility: [facility] Address: [address] Performed By: #### 5 7021-8 #### [facility] CLIA [id number] [address] [place] [address] LAB CLIA [id number] [address] [place] [address] [place] Eosinophils (Bld) [#/Vol] 0.08 10*3/uL Normal <0.46 [facility] Comment on above: Order Comment: Speci men Type: BLOOD SPECIMEN Ordering Facility: [facility] Address: [address] [place] [address] Performed By: #### 5 7021-8 #### [facility] CLIA [id number] [address] [place] [address] LAB CLIA [id number] [address] [place] [address] [place] Eosinophils/100 WBC (Bld) 0.9 % Normal [facility] Comment on above: Order Comment: Speci men Type: BLOOD SPECIMEN Ordering Facility: [facility] Address: [address] [place], [place] [address] Performed By: #### 5 7021-8 #### [facility] CLIA [id number] [address] [place] [address] LAB CLIA [id number] [address] [place] [address] [place] Erythrocyte distribution width (RBC) [Ratio] 14.6 % Normal 11.5-15.0 [facility] Comment on above: Order Comment: Speci men Type: BLOOD SPECIMEN Ordering Facility: [facility] Address: [address] [place] [address] Performed By: #### 5 7021-8 #### [facility] CLIA [id number] [address] [place] [address] LAB CLIA [id number] [address] [place] [address] [place] Hematocrit (Bld) [Volume fraction] 45.7 % Normal 39.0-51.0 [facility] Comment on above: Order Comment: Speci men Type: BLOOD SPECIMEN Ordering Facility: [facility] Address: [address] [place], [place] [address] Performed By: #### 5 7021-8 #### [facility] CLIA [id number] [address] [place] [address] LAB CLIA [id number] [address] [place] [address] [place] Hemoglobin (Bld) [Mass/Vol] 15.3 g/dL Normal 13.0-17.0 [facility] Comment on above: Order Comment: Speci men Type: BLOOD SPECIMEN Ordering Facility: [facility] Address: [address] [place], [place] [address] Performed By: #### 5 7021-8 #### [facility] CLIA [id number] [address] [place] [address] LAB CLIA [id number] [address] [place] [address] [place] Lymphocytes (Bld) [#/Vol] 3.27 10*3/uL Normal 1.00-4.00 [facility] Comment on above: Order Comment: Speci men Type: BLOOD SPECIMEN Ordering Facility: [facility] Address: [address] Performed By: #### 5 7021-8 #### [facility] CLIA [id number] [address] [place] [address] LAB CLIA [id number] [address] [place] [address] [place] Lymphocytes/100 WBC (Bld) 37.7 % Normal [facility] Comment on above: Order Comment: Speci men Type: BLOOD SPECIMEN Ordering Facility: [facility] Address: [address] Performed By: #### 5 7021-8 #### [facility] CLIA [id number] [address] [place] [address] LAB CLIA [id number] [address] [place] [address] [place] MCH (RBC) [Entitic mass] 29.4 pg Normal 26.0-34.0 [facility] Comment on above: Order Comment: Speci men Type: BLOOD SPECIMEN Ordering Facility: [facility] Address: [address] [place] [address] Performed By: #### 5 7021-8 #### [facility] CLIA [id number] [address] [place] [address] LAB CLIA [id number] [address] [place] [address] [place] MCHC (RBC) [Mass/Vol] 33.5 g/dL Normal 30.5-36.0 [facility] Comment on above: Order Comment: Speci men Type: BLOOD SPECIMEN Ordering Facility: [facility] Address: [address] [place], [place] [address] Performed By: #### 5 7021-8 #### [facility] CLIA [id number] [address] [place] [address] LAB CLIA [id number] [address] [place] [address] [place] MCV (RBC) [Entitic vol] 87.9 fL Normal 80.0-100.0 [facility] Comment on above: Order Comment: Speci men Type: BLOOD SPECIMEN Ordering Facility: [facility] Address: [address] [place], [place] [address] Performed By: #### 5 7021-8 #### [facility] CLIA [id number] [address] [place] [address] LAB CLIA [id number] [address] [place] [address] [place] Monocytes (Bld) [#/Vol] 0.23 10*3/uL Normal <0.87 [facility] Comment on above: Order Comment: Speci men Type: BLOOD SPECIMEN Ordering Facility: [facility] Address: [address] [place] [address] Performed By: #### 5 7021-8 #### [facility] CLIA [id number] [address] [place] [address] LAB CLIA [id number] [facility] [place] [address] [place] Monocytes/100 WBC (Bld) 2.6 % Normal [facility] Comment on above: Order Comment: Speci men Type: BLOOD SPECIMEN Ordering Facility: [facility] Address: [address] [place] [address] Performed By: #### 5 7021-8 #### [facility] CLIA [id number] [address] [place] [address] LAB CLIA [id number] [address] [place] [address] [place] Neutrophils (Bld) [#/Vol] 5.10 10*3/uL Normal 1.45-7.50 [facility] Comment on above: Order Comment: Speci men Type: BLOOD SPECIMEN Ordering Facility: [facility] Address: [address] [place] [address] Performed By: #### 5 7021-8 #### [facility] CLIA [id number] [address] [place] [address] LAB CLIA [id number] [address] [place] [address] [place] Neutrophils/100 WBC (Bld) 58.8 % Normal [facility] Comment on above: Order Comment: Speci men Type: BLOOD SPECIMEN Ordering Facility: [facility] Address: [address] [place], [place] [address] Performed By: #### 5 7021-8 #### [facility] CLIA [id number] [address] [place] [address] LAB CLIA [id number] [address] [place] [address] [place] Nucleated RBC (Bld) [#/Vol] 10*3/uL Normal <0.01 [facility] Comment on above: Order Comment: Speci men Type: BLOOD SPECIMEN Ordering Facility: [facility] Address: [address] [place] [address] Performed By: #### 5 7021-8 #### [facility] CLIA [id number] [address] [place] [address] LAB CLIA [id number] [address] [place] [address] [place] Nucleated RBC/100 WBC (Bld) [Ratio] 0.0 /100 WBC Normal [facility] Comment on above: Order Comment: Speci men Type: BLOOD SPECIMEN Ordering Facility: [facility] Address: [address] [place] [address] Performed By: #### 5 7021-8 #### [facility] CLIA [id number] [address] [place] [address] LAB CLIA [id number] [address] [place] [address] [place] Platelet mean volume (Bld) [Entitic vol] 10.1 fL Normal 9.0-12.7 [facility] Comment on above: Order Comment: Speci men Type: BLOOD SPECIMEN Ordering Facility: [facility] Address: [address] [place] [address] Performed By: #### 5 7021-8 #### [facility] CLIA [id number] [address] [place] [address] LAB CLIA [id number] [address] [place] [address] [place] Platelets (Bld) [#/Vol] 289 10*3/uL Normal 150-400 [facility] Comment on above: Order Comment: Speci men Type: BLOOD SPECIMEN Ordering Facility: [facility] Address: [address] [place] [address] Performed By: #### 5 7021-8 #### [facility] CLIA [id number] [address] [place] [address] LAB CLIA [id number] [address] [place] [address] [place] Platelets Estimate (Bld) [#/Vol] Adequate Normal [facility] Comment on above: Order Comment: Speci men Type: BLOOD SPECIMEN Ordering Facility: [facility] Address: [address] [place] [address] Performed By: #### 5 7021-8 #### [facility] CLIA [id number] [address] [place] [address] LAB CLIA [id number] [address] [place] [address] [place] RBC (Bld) [#/Vol] 5.20 10*6/uL Normal 4.20-6.00 [facility] Comment on above: Order Comment: Speci men Type: BLOOD SPECIMEN Ordering Facility: [facility] Address: [address] [place] [address] Performed By: #### 5 7021-8 #### [facility] CLIA [id number] [address] [place] [address] LAB CLIA [id number] [address] [place] [address] [place] RED CELL MORPH Reviewed: unremarkable Normal [facility] Comment on above: Order Comment: Speci men Type: BLOOD SPECIMEN Ordering Facility: [facility] Address: [address] [place] [address] Performed By: #### 5 7021-8 #### [facility] CLIA [id number] [address] [place] [address] LAB CLIA [id number] [address] [place] [address] [place] WBC (Bld) [#/Vol] 8.67 10*3/uL Normal 3.70-11.00 [facility] Comment on above: Order Comment: Speci men Type: BLOOD SPECIMEN Ordering Facility: [facility] Address: [address] [place] [address] Performed By: #### 5 7021-8 #### [facility] CLIA [id number] [address] [place] [address] LAB CLIA [id number] [address] [place] [address] [place] CREATININE BLDon 08-12-2022 Creatinine [Mass/Vol] 1.28 mg/dL High 0.73-1.22 [facility] Comment on above: Order Comment: Speci men Type: BLOOD SPECIMEN Ordering Facility: [facility] Address: [address] [place] [address] Performed By: #### C RET1 #### [facility] CLIA [id number] [address] [place] [address] ESTIMATED GLOMERULAR FILTRATION RATE 76 mL/min/1.73m??? Normal >=60 [facility] Comment on above: Order Comment: Speci men Type: BLOOD SPECIMEN Ordering Facility: [facility] Address: [address] [place] [place] [address] Result Comment: Jyoti mated Glomerular Filtration Rate [...] GFR. Performed By: #### C RET1 #### [facility] CLIA [id number] [address] [place] [address] CRP SerPl-ncon 08-12-2022 CRP [Mass/Vol] mg/L Normal <0.9 [facility] Comment on above: Order Comment: Speci men Type: BLOOD SPECIMEN Ordering Facility: [facility] Address: [address] [place] [address] Performed By: #### 1 742-6, 1920-8, 1751-7, CRET1 #### [facility] CLIA [id number] [address] [place] [address] ESR Westergren method (Bld) [Velocity]on 08-12-2022 ESR (Bld) [Velocity] 5 mm/h Normal 0-15 [facility] Comment on above: Order Comment: Speci men Type: BLOOD SPECIMEN Ordering Facility: [facility] Address: [address] [place] [place] [address] Performed By: #### 4 537-7 #### [facility] CLIA [id number] [address] [facility] [id number] [address] [place] Urate SerPl-mCncon 3 Urate [Mass/Vol] 9.2 mg/dL High 4.0-8.1 [facility] Comment on above: Order Comment: Speci men Type: BLOOD SPECIMEN Ordering Facility: [facility] Address: [address] [place] [address] Performed By: #### 3 084-1 #### [facility] CLIA [id number] [address] [place] [address] CBC AUTO DIFFon 06-28-2022 BASO # 0.0 103/ul Normal 0.0-0.1 [facility] Comment on above: Performed By: #### C BC #### [facility] [address] [address] [address] Nilay Gibbs Basophils/100 WBC (Bld) 0.2 % Normal 0.2-2.0 [facility] Comment on above: Performed By: #### C BC #### [facility] [address] [address] [address] Nilay Gibbs EO # 0.0 103/ul Normal 0.0-0.7 [facility] Comment on above: Performed By: #### C BC #### [facility] [address] [address] [address] Nilay Gibbs Eosinophils/100 WBC (Bld) 0.3 % Critically low 0.9-7.0 [facility] Comment on above: Performed By: #### C BC #### [facility] [address] [address] [address] Nilay Gibbs Erythrocyte distribution width (RBC) [Ratio] 13.9 % Normal 11.0-15.0 [facility] Comment on above: Performed By: #### C BC #### [facility] [address] [address] [address] Nilay Gibbs Hematocrit (Bld) [Volume fraction] 39.8 % Critically low 42.0-54.0 [facility] Comment on above: Performed By: #### C BC #### [facility] [address] [address] [address] Nilay Gibbs Hemoglobin (Bld) [Mass/Vol] 13.2 g/dL Critically low 14.0-18.0 [facility] Comment on above: Performed By: #### C BC #### [facility] [address] [address] [address] Nilay Gibbs IG # 0.04 10e3/ul Critically high 0.00-0.03 [facility] Comment on above: Performed By: #### C BC #### [facility] [address] [address] [address] Nilay Gibbs IG % 0.4 % Normal 0.0-0.5 [facility] Comment on above: Performed By: #### C BC #### [facility] [address] [address] [address] Nilay Gibbs LYMPH # 1.8 103/ul Normal 1.2-3.8 [facility] Comment on above: Performed By: #### C BC #### [facility] [address] [address] [address] Nilay Gibbs Lymphocytes/100 WBC (Bld) 17.5 % Critically low 20.5-60.0 [facility] Comment on above: Performed By: #### C BC #### [facility] [address] [address] [address] Nilay Gibbs MANUAL DIFF REQ NO Normal [facility] Comment on above: Performed By: #### C BC #### [facility] [address] [address] [address] Nilay Gibbs MCH (RBC) [Entitic mass] 29.3 pg Normal 25.9-34.0 [facility] Comment on above: Performed By: #### C BC #### [facility] [address] [address] [address] Nilay Gibbs MCHC (RBC) [Mass/Vol] 33.2 g/dL Normal 29.9-35.2 [facility] Comment on above: Performed By: #### C BC #### [facility] [address] [address] [address] Nilay Gibbs MCV (RBC) [Entitic vol] 88.4 fL Normal 80.0-94.0 [facility] Comment on above: Performed By: #### C BC #### [facility] [address] [address] [address] Nilay Gibbs MONO # 0.9 103/ul Critically high 0.3-0.8 [facility] Comment on above: Performed By: #### C BC #### [facility] [address] [place] [address] Dr. Nilay Gibbs Monocytes/100 WBC (Bld) 9.4 % Normal 1.7-12.0 [facility] Comment on above: Performed By: #### C BC #### [facility] [address] [place] [address] Dr. Nilay Gibbs NEUT # 7.2 103/ul Critically high 1.4-6.5 [facility] Comment on above: Performed By: #### C BC #### [facility] [address] [place] [address] Dr. Nilay Gibbs Neutrophils/100 WBC (Bld) 72.2 % Normal 43.0-75.0 [facility] Comment on above: Performed By: #### C BC #### [facility] [address] [place] [address] Dr. Nilay Gibbs Platelet mean volume (Bld) [Entitic vol] 9.6 fL Normal 9.5-13.5 [facility] Comment on above: Performed By: #### C BC #### [facility] [address] [place] [address] Dr. Nilay Gibbs PLT 356 103/ul Normal 150-450 [facility] Comment on above: Performed By: #### C BC #### [facility] [address] [place] [address] Dr. Nilay Gibbs RBC 4.50 106/ul Critically low 4.70-6.10 [facility] Comment on above: Performed By: #### C BC #### [facility] [address] [place] [address] Dr. Nilay Gibbs WBC 10.0 103/ul Normal 4.0-11.0 [facility] Comment on above: Performed By: #### C BC #### [facility] [address] [place] [address] Dr. Nilay Gibbs PROF CHEM 8 (BAS METB)on Anion gap [Moles/Vol] 12.4 mmol/L Normal [facility] Comment on above: Performed By: #### A MM #### [facility] [address] [place] [address] Dr. Nilay Gibbs Calcium [Mass/Vol] 9.4 mg/dL Normal 8.5-10.1 [facility] Comment on above: Performed By: #### A MM #### [facility] [address] [place] [address] Dr. Nilay Gibbs Chloride [Moles/Vol] 105 mmol/L Normal 98-107 [facility] Comment on above: Performed By: #### A MM #### [facility] [address] [place] [address] Dr. Nilay Gibbs CO2 [Moles/Vol] 25.6 mmol/L Normal 21.0-32.0 [facility] Comment on above: Performed By: #### A MM #### [facility] [address] [place] [address] Dr. Nilay Gibbs Creatinine [Mass/Vol] 1.18 mg/dL Normal 0.70-1.30 [facility] Comment on above: Performed By: #### A MM #### [facility] [address] [place] [address] Dr. Nilay Gibbs EGFR-AF WELSH >60 Normal >=60 [facility] Comment on above: Performed By: #### A MM #### [facility] [address] [place] [address] Dr. Nilay Gibbs EGFR-NON AF WELSH >60 Normal >=60 [facility] Comment on above: Performed By: #### A MM #### [facility] [address] [place] [address] Dr. Nilay Gibbs Glucose [Mass/Vol] 125 mg/dL Critically high 74-[address] [facility] Comment on above: Performed By: #### A MM #### [facility] [address] [place] [address] Dr. Nilay Gibbs Potassium [Moles/Vol] 4.3 mmol/L Normal 3.5-5.1 [facility] Comment on above: Performed By: #### A MM #### [facility] [address] [place] [address] Dr. Nilay Gibbs Sodium [Moles/Vol] 139 mmol/L Normal 136-145 [facility] Comment on above: Performed By: #### A MM #### [facility] [address] [place] [address] Dr. Nilay Gibbs Urea nitrogen [Mass/Vol] 15.0 mg/dL Normal 7.0-18.0 [facility] Comment on above: Performed By: #### A MM #### [facility] [address] [place] [address] Dr. Nilay Gibbs Urea nitrogen/Creatinine [Mass ratio] 12.7 mg/mg Normal [facility] Comment on above: Performed By: #### A MM #### [facility] [address] [place] [address] Dr. Nilay Gibbs CBC AUTO DIFFon 06-20-2022 BASO # 0.0 103/ul Normal 0.0-0.1 [facility] Comment on above: Performed By: #### A MM #### [facility] [address] [place] [address] Dr. Nilay Gibbs Basophils/100 WBC (Bld) 0.2 % Normal 0.2-2.0 [facility] Comment on above: Performed By: #### A MM #### [facility] [address] [place] [address] Dr. Nilay Gibbs EO # 0.0 103/ul Normal 0.0-0.7 [facility] Comment on above: Performed By: #### A MM #### [facility] [address] [place] [address] Dr. Nilay Gibbs Eosinophils/100 WBC (Bld) 0.3 % Critically low 0.9-7.0 [facility] Comment on above: Performed By: #### A MM #### [facility] [address] [place] [address] Dr. Nilay Gibbs Erythrocyte distribution width (RBC) [Ratio] 14.3 % Normal 11.0-15.0 [facility] Comment on above: Performed By: #### A MM #### [facility] [address] [place] [address] Dr. Nilay Gibbs Hematocrit (Bld) [Volume fraction] 39.3 % Critically low 42.0-54.0 [facility] Comment on above: Performed By: #### A MM #### [facility] [address] [place] [address] Dr. Nilay Gibbs Hemoglobin (Bld) [Mass/Vol] 13.1 g/dL Critically low 14.0-18.0 [facility] Comment on above: Performed By: #### A MM #### [facility] [address] [place] [address] Dr. Nilay Gibbs IG # 0.03 10e3/ul Normal 0.00-0.03 [facility] Comment on above: Performed By: #### A MM #### [facility] [address] [place] [address] Dr. Nilay Gibbs IG % 0.3 % Normal 0.0-0.5 [facility] Comment on above: Performed By: #### A MM #### [facility] [address] [place] [address] Dr. Nilay Gibbs LYMPH # 1.7 103/ul Normal 1.2-3.8 [facility] Comment on above: Performed By: #### A MM #### [facility] [address] [place] [address] Dr. Nilay Gibbs Lymphocytes/100 WBC (Bld) 14.5 % Critically low 20.5-60.0 [facility] Comment on above: Performed By: #### A MM #### [facility] [address] [place] [address] Dr. Nilay Gibbs MANUAL DIFF REQ NO Normal [facility] Comment on above: Performed By: #### A MM #### [facility] [address] [place] [address] Dr. Nilay Gibbs MCH (RBC) [Entitic mass] 29.2 pg Normal 25.9-34.0 [facility] Comment on above: Performed By: #### A MM #### [facility] [address] [place] [address] Dr. Nilay Gibbs MCHC (RBC) [Mass/Vol] 33.3 g/dL Normal 29.9-35.2 [facility] Comment on above: Performed By: #### A MM #### [facility] [address] [place] [address] Dr. Nilay Gibbs MCV (RBC) [Entitic vol] 87.5 fL Normal 80.0-94.0 [facility] Comment on above: Performed By: #### A MM #### [facility] [address] [place] [address] Dr. Nilay Gibbs MONO # 1.3 103/ul Critically high 0.3-0.8 [facility] Comment on above: Performed By: #### A MM #### [facility] [address] [place] [address] Dr. Nilay Gibbs Monocytes/100 WBC (Bld) 10.9 % Normal 1.7-12.0 [facility] Comment on above: Performed By: #### A MM #### [facility] [address] [place] [address] Dr. Nilay Gibbs NEUT # 8.7 103/ul Critically high 1.4-6.5 [facility] Comment on above: Performed By: #### A MM #### [facility] [address] [place] [address] Dr. Nilay Gibbs Neutrophils/100 WBC (Bld) 73.8 % Normal 43.0-75.0 [facility] Comment on above: Performed By: #### A MM #### [facility] [address] [place] [address] Dr. Nilay Gibbs Platelet mean volume (Bld) [Entitic vol] 10.9 fL Normal 9.5-13.5 [facility] Comment on above: Performed By: #### A MM #### [facility] [address] [place] [address] Dr. Nilay Gibbs PLT 171 103/ul Normal 150-450 [facility] Comment on above: Performed By: #### A MM #### [facility] [address] [place] [address] Dr. Nilay Gibbs RBC 4.49 106/ul Critically low 4.70-6.10 [facility] Comment on above: Performed By: #### A MM #### [facility] [address] [place] [address] Dr. Nilay Gibbs WBC 11.7 103/ul Critically high 4.0-11.0 [facility] Comment on above: Performed By: #### A MM #### [facility] [address] [place] [address] Dr. Nilay Gibbs CRPon 06-20-2022 CRP 25.4 mg/dL Critically high <=1.0 [facility] Comment on above: Performed By: #### C RP, CMP #### [facility] [address] [place] [address] Dr. Nilay Gibbs CULTURE BLOODon 06-20-2022 Microscopic examination of blood, culture Culture Observations: NO GROWTH AT 5 DAYS. Normal [facility] Comment on above: Performed By: #### C MP #### [facility] [address] [place] [address] Dr. Nilay Gibbs Microscopic examination of blood, culture Culture Observations: NO GROWTH AT 5 DAYS. Normal [facility] Comment on above: Performed By: #### C MP #### [facility] [address] [place] [address] Dr. Nilay Gibbs LACTATE/LACTIC ACIDon 2022 Lactate [Moles/Vol] 0.7 mmol/L Normal 0.4-2.0 [facility] Comment on above: Performed By: #### A MM #### [facility] [address] [place] [address] Dr. Nilay Gibbs PROF 14(COMP METB)on 023 Albumin [Mass/Vol] 3.8 g/dL Normal 3.4-5.0 [facility] Comment on above: Performed By: #### C RP, CMP #### [facility] [address] [address] [address] Nilay Gibbs Albumin/Globulin [Mass ratio] 1.1 {ratio} Normal [facility] Comment on above: Performed By: #### C RP, CMP #### [facility] [address] [address] [address] Nilay Gibbs ALP [Catalytic activity/Vol] 85 U/L Normal 46-116 [facility] Comment on above: Performed By: #### C RP, CMP #### [facility] [address] [address] [address] Nilay Gibbs ALT [Catalytic activity/Vol] 29 U/L Normal 16-63 [facility] Comment on above: Performed By: #### C RP, CMP #### [facility] [address] [address] [address] Nilay Gibbs Anion gap [Moles/Vol] 15.2 mmol/L Normal [facility] Comment on above: Performed By: #### C RP, CMP #### [facility] [address] [place] [address] Dr. Nilay Gibbs AST [Catalytic activity/Vol] 20 U/L Normal 15-37 [facility] Comment on above: Performed By: #### C RP, CMP #### [facility] [address] [address] [address] Nilay Gibbs Bilirubin [Mass/Vol] 1.1 mg/dL Critically high 0.2-1.0 [facility] Comment on above: Performed By: #### C RP, CMP #### [facility] [address] [address] [address] Nilay Gibbs Calcium [Mass/Vol] 9.4 mg/dL Normal 8.5-10.1 [facility] Comment on above: Performed By: #### C RP, CMP #### [facility] [address] [place] [address] Dr. Nilay Gibbs Chloride [Moles/Vol] 99 mmol/L Normal 98-107 [facility] Comment on above: Performed By: #### C RP, CMP #### [facility] [address] [place] [address] Dr. Nilay Gibbs CO2 [Moles/Vol] 25.7 mmol/L Normal 21.0-32.0 [facility] Comment on above: Performed By: #### C RP, CMP #### [facility] [address] [place] [address] Dr. Nilay Gibbs Creatinine [Mass/Vol] 1.32 mg/dL Critically high 0.70-1.30 [facility] Comment on above: Performed By: #### C RP, CMP #### [facility] [address] [place] [address] Dr. Nilay Gibbs EGFR-AF WELSH >60 Normal >=60 [facility] Comment on above: Performed By: #### C RP, CMP #### [facility] [address] [place] [address] Dr. Nilay Gibbs EGFR-NON AF WELSH >60 Normal >=60 [facility] Comment on above: Performed By: #### C RP, CMP #### [facility] [address] [place] [address] Dr. Nilay Gibbs Globulin (S) [Mass/Vol] 3.6 g/dL Normal [facility] Comment on above: Performed By: #### C RP, CMP #### [facility] [address] [place] [address] Dr. Nilay Gibbs Glucose [Mass/Vol] 106 mg/dL Normal 74-106 [facility] Comment on above: Performed By: #### C RP, CMP #### [facility] [address] [place] [address] Dr. Nilay Gibbs Potassium [Moles/Vol] 3.9 mmol/L Normal 3.5-5.1 [facility] Comment on above: Performed By: #### C RP, CMP #### [facility] [address] [place] [address] Dr. Nilay Gibbs Protein [Mass/Vol] 7.4 g/dL Normal 6.4-8.2 [facility] Comment on above: Performed By: #### C RP, CMP #### [facility] [address] [address] [address] Nilay Gibbs Sodium [Moles/Vol] 136 mmol/L Normal 136-145 [facility] Comment on above: Performed By: #### C RP, CMP #### [facility] [address] [address] [address] Nilay Gibbs Urea nitrogen [Mass/Vol] 10.0 mg/dL Normal 7.0-18.0 [facility] Comment on above: Performed By: #### C RP, CMP #### [facility] [address] [place] [address] Dr. Nilay Gibbs Urea nitrogen/Creatinine [Mass ratio] 7.6 mg/mg Normal [facility] Comment on above: Performed By: #### C RP, CMP #### [facility] [address] [place] [address] Dr. Nilay Gibbs SED RATE [facility] 2022 SED RATE 46 mm/hr Critically high <=15 [facility] Comment on above: Performed By: #### S EDR #### [facility] [address] [place] [address] Dr. Nilay Gibbs [facility]on SARS-CoV-2 (COVID-19) RNA TALHA+probe Ql (Unsp spec) Not detected Normal NOT DETECTED [facility] Comment on above: Result Comment: When diagnostic [...] for this test is supported by the [place] [employer] and Human Service's declaration that [...] used). Performed By: #### A MM #### [facility] [address] [place] [address] Dr. Nilay Gibbs INFLUENZA A AND B AGon 01-31 INFLUANE SEE BELOW Normal [facility] Comment on above: Result Comment: Nega tive for Flu A protein angiten. Infection due to Flu A cannot be ruled out. Flu A angiten in the sample may be below the detection limit of the test. Performed By: #### A MM #### [facility] [address] [place] [address] Dr. Nilay Gibbs INFLUBNEG SEE BELOW Normal [facility] Comment on above: Result Comment: Nega tive for Flu B protein antigen. Infection due to Flu B cannot be ruled out. Flu B antigen in the sample may be below the detection limit of the test. Performed By: #### A MM #### [facility] [address] [place] [address] Dr. Nilay Gibbs INFLUENZA A AG Negative Normal NEGATIVE SEE COMMENT [facility] Comment on above: Performed By: #### A MM #### [facility] [address] [place] [address] Dr. Nilay Gibbs INFLUENZA B AG Negative Normal NEGATIVE SEE COMMENT [facility] Comment on above: Performed By: #### A MM #### [facility] [address] [place] [address] Dr. Nilay Gibbs INTERNAL CONTROLS Within Normal Limits Normal Wi thin Normal Limits [facility] Comment on above: Performed By: #### A MM #### [facility] [address] [place] [address] Dr. Nilay Gibbs Cholesterol [Mass/volume] in Serum or PlasmaOrdered By: Adam Young on 12-08-2021 Cholesterol [Mass/Vol] 205 mg/dL 140-200 [facility] Comment on above: Chol less than 200 m g/dl low riskChol 201-239 mg/dl borderline riskChol 240 mg/dl and greater high risk Cholesterol in LDL Calc [Mas s/Vol]Ordered By: Adam Young on 12-08-2021 Cholesterol in LDL [Mass/Vol] 120 mg/dL 0-100 [facility] Comment on above: LDL ATP III CLASSIFI CATIONLDL less than 100 mg/dL OptimalLDL 100-129 mg/dL Near or above optimalLDL 130-159 mg/dL Borderline highLDL 160-189 mg/dL HighLDL greater than 189 mg/dL Very high Cholesterol in VLDL Calc [Ma ss/Vol]Ordered By: Adam Young on 12-08-2021 Cholesterol in VLDL [Mass/Vol] 37 mg/dL [facility] No Panel InformationOrdered By: Adam Young on 12-08-2021 25-Hydroxy Vitamin D Total 50.6 ng/mL 30-100 [facility] Comment on above: VITAMIN D STATUS 25( [...] Cholesterol in HDL [Mass/Vol] 47 mg/dL 29-71 [facility] Comment on above: HDL CHOL ATP-III CLA SSIFICATION Cardiovascular RiskHDL > or equal to 60 mg/dL LOWHDL < 40 mg/dL HIGH Serum or plasma total choles terol/high density lipoprotein (HDL) cholesterol mass ratOrdered By: Adam Young on 12-08-2021 Cholesterol.total/Ch olesterol in HDL [Mass ratio] 4.4 {ratio} <5.0 [facility] TSH DL <= 0.005 mIU/L QnOrde red By: Adam Young on 12-08-2021 TSH Qn 0.75 m[IU]/L 0.45-5.33 [facility] Triglyceride [Mass/volume] i n Serum or PlasmaOrdered By: Adam Young on 12-08-2021 Triglyceride [Mass/Vol] 188 mg/dL 35-149 [facility] Comment on above: TRIG ATP III CLASSIF ICATIONTRIG less than 150 mg/dL NormalTRIG 150-199 mg/dL Borderline highTRIG 200-500 mg/dL High TRIG greater than 500 mg/dL Very highStandard traceable to the Center for Disease Conrtrol and Prevention (CDC) test method. Covid-19 PCR (CVDTB)on SARS-CoV-2 (COVID-19) RNA TALHA+probe Ql (Unsp spec) Not detected Normal NOT DETECTED [facility] Comment on above: Result Comment: When diagnostic [...] for this test is supported by the [place] of [employer] and [employer] Service's declaration that [...] used). Performed By: #### C MP #### [facility] [address] [address] [address] Nilay Gibbs ETHANOL (BLD ALC)on 12-08-19 22 Ethanol [Mass/Vol] 288 mg/dL Normal [facility] Comment on above: Performed By: #### C MP #### [facility] [address] [address] [address] Nilay Gibbs ALC NOTE NOTE: 80 mg/dl is th e legal limit for a blood alcohol level Normal [facility] Comment on above: Performed By: #### C MP #### [facility] [address] [place] [address] Dr. Nilay Gibbs Performed By: #### A MM #### [facility] [address] [place] [address] Dr. Nilay Gibbs Ethanol [Mass/Vol] 130 mg/dL Normal [facility] Comment on above: Performed By: #### A MM #### [facility] [address] [place] [address] Dr. Nilay Gibsb Ethanol [Mass/Vol] 196 mg/dL Normal [facility] Comment on above: Performed By: #### A MM #### [facility] [address] [place] [address] Dr. Nilay Gibbs ACETAMINOPHENon 12-06-2021 Acetaminophen [Mass/Vol] ug/mL Critically low 10.0-30.0 [facility] Comment on above: Performed By: #### A CET #### [facility] [address] [place] [address] Dr. Nilay Gibbs AMMONIAon 12-06-2021 Ammonia (P) [Moles/Vol] 22 umol/L Normal 11-32 [facility] Comment on above: Performed By: #### A MM #### [facility] [address] [place] [address] Dr. Nilay Gibbs CBC AUTO DIFFon 12-06-2021 BASO # 0.0 103/ul Normal 0.0-0.1 [facility] Comment on above: Performed By: #### A MM #### [facility] [address] [place] [address] Dr. Nilay Gibbs Basophils/100 WBC (Bld) 0.5 % Normal 0.2-2.0 [facility] Comment on above: Performed By: #### A MM #### [facility] [address] [place] [address] Dr. Nilay Gibbs EO # 0.1 103/ul Normal 0.0-0.7 [facility] Comment on above: Performed By: #### A MM #### [facility] [address] [place] [address] Dr. Nilay Gibbs Eosinophils/100 WBC (Bld) 1.0 % Normal 0.9-7.0 [facility] Comment on above: Performed By: #### A MM #### [facility] [address] [place] [address] Dr. Nilay Gibbs Erythrocyte distribution width (RBC) [Ratio] 12.9 % Normal 11.0-15.0 [facility] Comment on above: Performed By: #### A MM #### [facility] [address] [place] [address] Dr. Nilay Gibbs Hematocrit (Bld) [Volume fraction] 40.5 % Critically low 42.0-54.0 [facility] Comment on above: Performed By: #### A MM #### [facility] [address] [place] [address] Dr. Nilay Gibbs Hemoglobin (Bld) [Mass/Vol] 13.9 g/dL Critically low 14.0-18.0 [facility] Comment on above: Performed By: #### A MM #### [facility] [address] [place] [address] Dr. Nilay Gibbs IG # 0.02 10e3/ul Normal 0.00-0.03 [facility] Comment on above: Performed By: #### A MM #### [facility] [address] [place] [address] Dr. Nilay Gibbs IG % 0.3 % Normal 0.0-0.5 [facility] Comment on above: Performed By: #### A MM #### [facility] [address] [place] [address] Dr. Nilay Gibbs LYMPH # 2.7 103/ul Normal 1.2-3.8 [facility] Comment on above: Performed By: #### A MM #### [facility] [address] [place] [address] Dr. Nilay Gibbs Lymphocytes/100 WBC (Bld) 45.2 % Normal 20.5-60.0 [facility] Comment on above: Performed By: #### A MM #### [facility] [address] [place] [address] Dr. Nilay Gibbs MANUAL DIFF REQ NO Normal [facility] Comment on above: Performed By: #### A MM #### [facility] [address] [place] [address] Dr. Nilay Gibbs MCH (RBC) [Entitic mass] 29.8 pg Normal 25.9-34.0 [facility] Comment on above: Performed By: #### A MM #### [facility] [address] [place] [address] Dr. Nilay Gibbs MCHC (RBC) [Mass/Vol] 34.3 g/dL Normal 29.9-35.2 [facility] Comment on above: Performed By: #### A MM #### [facility] [address] [place] [address] Dr. Nilay Gibbs MCV (RBC) [Entitic vol] 86.9 fL Normal 80.0-94.0 [facility] Comment on above: Performed By: #### A MM #### [facility] [address] [place] [address] Dr. Nilay Gibbs MONO # 0.4 103/ul Normal 0.3-0.8 [facility] Comment on above: Performed By: #### A MM #### [facility] [address] [place] [address] Dr. Nilay Gibbs Monocytes/100 WBC (Bld) 6.3 % Normal 1.7-12.0 [facility] Comment on above: Performed By: #### A MM #### [facility] [address] [place] [address] Dr. Nilay Gibbs NEUT # 2.7 103/ul Normal 1.4-6.5 [facility] Comment on above: Performed By: #### A MM #### [facility] [address] [place] [address] Dr. Nilay Gibbs Neutrophils/100 WBC (Bld) 46.7 % Normal 43.0-75.0 [facility] Comment on above: Performed By: #### A MM #### [facility] [address] [place] [address] Dr. Nilay Gibbs Platelet mean volume (Bld) [Entitic vol] 10.4 fL Normal 9.5-13.5 [facility] Comment on above: Performed By: #### A MM #### [facility] [address] [address] [address] Nilay Gibbs PLT 237 103/ul Normal 150-450 [facility] Comment on above: Performed By: #### A MM #### [facility] [address] [address] [address] Nilay Gibbs RBC 4.66 106/ul Critically low 4.70-6.10 [facility] Comment on above: Performed By: #### A MM #### [facility] [address] [address] [address] Nilay Gibbs WBC 5.9 103/ul Normal 4.0-11.0 [facility] Comment on above: Performed By: #### A MM #### [facility] [address] [place] [address] Dr. Nilay Gibbs DRUG SCREEN RAPID (URINE)on 12-06-2021 AMP Negative Normal NEGATIVE [facility] Comment on above: Performed By: #### D RUGRPD #### [facility] [address] [address] [address] Nilay Gibbs BAR Negative Normal NEGATIVE [facility] Comment on above: Performed By: #### D RUGRPD #### [facility] [address] [place] [address] Dr. Nilay Gibbs BUP Negative Normal NEGATIVE [facility] Comment on above: Performed By: #### D RUGRPD #### [facility] [address] [address] [address] Nilay Gibbs BZO Positive Abnormal NEGATIVE [facility] Comment on above: Performed By: #### D RUGRPD #### [facility] [address] [place] [address] Dr. Nilay Gibbs ROQUE Negative Normal NEGATIVE [facility] Comment on above: Performed By: #### D RUGRPD #### [facility] [address] [place] [address] Dr. Nilay Gibbs CUT-OFFS SEE BELOW Normal [facility] Comment on above: Result Comment: [...] ng/mL Performed By: #### D RUGRPD #### [facility] [address] [place] [address] Dr. Nilay Gibbs DRUG CUT HEADER DRUG CLASS TEST SYST EM CUT-OFF CONCENTRATIONS ARE FOLLOWS: Normal [facility] Comment on above: Performed By: #### D RUGRPD #### [facility] [address] [place] [address] Dr. Nilay Gibbs mAMP Negative Normal NEGATIVE [facility] Comment on above: Performed By: #### D RUGRPD #### [facility] [address] [place] [address] Dr. Nilay Gibbs MTD Negative Normal NEGATIVE [facility] Comment on above: Performed By: #### D RUGRPD #### [facility] [address] [place] [address] Dr. Nilay Gibbs OPI Negative Normal NEGATIVE [facility] Comment on above: Performed By: #### D RUGRPD #### [facility] [address] [place] [address] Dr. Nilay Gibbs OXY Negative Normal NEGATIVE [facility] Comment on above: Performed By: #### D RUGRPD #### [facility] [address] [place] [address] Dr. Nilay Gibbs PCP Negative Normal NEGATIVE [facility] Comment on above: Performed By: #### D RUGRPD #### [facility] [address] [place] [address] Dr. Nilay Gibbs PPX Negative Normal NEGATIVE [facility] Comment on above: Performed By: #### D RUGRPD #### [facility] [address] [address] [address] Nilay Gibbs TCA Negative Normal NEGATIVE [facility] Comment on above: Performed By: #### D RUGRPD #### [facility] [address] [address] [address] Nilay Gibbs THC Negative Normal NEGATIVE [facility] Comment on above: Performed By: #### D RUGRPD #### [facility] [address] [address] [address] Nilay Gibbs ETHANOL (BLD ALC)on 12-07-19 22 ALC NOTE NOTE: 80 mg/dl is th e legal limit for a blood alcohol level Normal [facility] Comment on above: Performed By: #### C MP #### [facility] [address] [place] [address] Dr. Nilay Gibbs Ethanol [Mass/Vol] 336 mg/dL Normal [facility] Comment on above: Performed By: #### C MP #### [facility] [address] [place] [address] Dr. Nilay Gibbs PROF 14(COMP METB)on 022 Albumin [Mass/Vol] 4.2 g/dL Normal 3.4-5.0 [facility] Comment on above: Performed By: #### C MP #### [facility] [address] [place] [address] Dr. Nilay Gibbs Albumin/Globulin [Mass ratio] 1.3 {ratio} Normal [facility] Comment on above: Performed By: #### C MP #### [facility] [address] [place] [address] Dr. Nilay Gibbs ALP [Catalytic activity/Vol] 104 U/L Normal 46-116 [facility] Comment on above: Performed By: #### C MP #### [facility] [address] [place] [address] Dr. Nilay Gibbs ALT [Catalytic activity/Vol] 41 U/L Normal 16-63 [facility] Comment on above: Performed By: #### C MP #### [facility] [address] [address] [address] Nilay Gibbs Anion gap [Moles/Vol] 11.5 mmol/L Normal [facility] Comment on above: Performed By: #### C MP #### [facility] [address] [place] [address] Dr. Nilay Gibbs AST [Catalytic activity/Vol] 37 U/L Normal 15-37 [facility] Comment on above: Performed By: #### C MP #### [facility] [address] [address] [address] Nilay Gibbs Bilirubin [Mass/Vol] 0.2 mg/dL Normal 0.2-1.0 [facility] Comment on above: Performed By: #### C MP #### [facility] [address] [place] [address] Dr. Nilay Gibbs Calcium [Mass/Vol] 8.6 mg/dL Normal 8.5-10.1 [facility] Comment on above: Performed By: #### C MP #### [facility] [address] [place] [address] Dr. Nilay Gibbs Chloride [Moles/Vol] 97 mmol/L Critically low 98-107 [facility] Comment on above: Performed By: #### C MP #### [facility] [address] [place] [address] Dr. Nilay Gibbs CO2 [Moles/Vol] 26.0 mmol/L Normal 21.0-32.0 [facility] Comment on above: Performed By: #### C MP #### [facility] [address] [place] [address] Dr. Nilay Gibbs Creatinine [Mass/Vol] 1.47 mg/dL Critically high 0.70-1.30 [facility] Comment on above: Performed By: #### C MP #### [facility] [address] [place] [address] Dr. Nilay Gibbs EGFR-AF WELSH >60 Normal >=60 [facility] Comment on above: Performed By: #### C MP #### [facility] [address] [place] [address] Dr. Nilay Gibbs EGFR-NON AF WELSH 56 mL/min/1.73m2 Critically low >=60 [facility] Comment on above: Performed By: #### C MP #### [facility] [address] [address] [address] Nilay Gibbs Globulin (S) [Mass/Vol] 3.2 g/dL Normal [facility] Comment on above: Performed By: #### C MP #### [facility] [address] [address] [address] Nilay Gibbs Glucose [Mass/Vol] 117 mg/dL Critically high 74-[address] [facility] Comment on above: Performed By: #### C MP #### [facility] [address] [address] [address] Nilay Gibbs Potassium [Moles/Vol] 3.5 mmol/L Normal 3.5-5.1 [facility] Comment on above: Performed By: #### C MP #### [facility] [address] [address] [address] Nilay Gibbs Protein [Mass/Vol] 7.4 g/dL Normal 6.4-8.2 [facility] Comment on above: Performed By: #### C MP #### [facility] [address] [address] [address] Nilay Gibbs Sodium [Moles/Vol] 131 mmol/L Critically low 136-145 [facility] Comment on above: Performed By: #### C MP #### [facility] [address] [address] [address] Nilay Gibbs Urea nitrogen [Mass/Vol] 14.0 mg/dL Normal 7.0-18.0 [facility] Comment on above: Performed By: #### C MP #### [facility] [address] [address] [address] Nilay Gibbs Urea nitrogen/Creatinine [Mass ratio] 9.5 mg/mg Normal [facility] Comment on above: Performed By: #### C MP #### [facility] [address] [place] [address] Dr. Nilay Gibbs SALICYLATEon 12-06-2021 SALICYLATE <2.8 Normal <=19.9 [facility] Comment on above: Performed By: #### A MM #### [facility] [address] [place] [address] Dr. Nilay Gibbs MRI Shoulder w/o Lefton [...] by Stephen Ware on 11/11/2021 0955 Normal [facility] [employer] Activated partial thrombopla stin time (aPTT) in platelet poor plasma by coagulation aOrdered By: Kristal Goldberg on 09-27-2021 aPTT Coag (PPP) [Time] 34.7 s 25.1-36.5 [facility] Albumin [Mass/volume] in Ser um or PlasmaOrdered By: Kristal Goldberg on 09-27-2021 Albumin [Mass/Vol] 4.1 g/dL 3.2-5.5 [facility] Basophils Auto (Bld) [#/Vol] Ordered By: Kristal Goldberg on 09-27-2021 Basophils (Bld) [#/Vol] 0.0 10*3/uL 0.0-0.2 [facility] Basophils/100 WBC Auto (Bld) Ordered By: Kristal Goldberg on 09-27-2021 Basophils/100 WBC (Bld) 0.3 % . [facility] Bilirubin Auto test strip Ql (U)Ordered By: Kristal Goldberg on 09-27-2021 Bilirubin Ql (U) Negative Negative [facility] Blood hemoglobin measurement (mass/volume)Ordered By: Kristal Goldberg on 09-27-2021 Hemoglobin (Bld) [Mass/Vol] 13.6 g/dL 13.0-17.0 [facility] Blood leukocytes automated c ount (number/volume)Ordered By: Kristal Goldberg on 09-27-2021 WBC (Bld) [#/Vol] 5.7 10*3/uL 4.5-11.0 [facility] CBC AUTO DIFFon 09-27-2021 BASO # 0.0 103/ul Normal 0.0-0.1 [facility] Comment on above: Performed By: #### A MM #### [facility] [address] [place] [address] Dr. Nilay Gibbs Basophils/100 WBC (Bld) 0.5 % Normal 0.2-2.0 [facility] Comment on above: Performed By: #### A MM #### [facility] [address] [place] [address] Dr. Nilay Gibbs EO # 0.1 103/ul Normal 0.0-0.7 [facility] Comment on above: Performed By: #### A MM #### [facility] [address] [address] [address] Nilay Gibbs Eosinophils/100 WBC (Bld) 1.6 % Normal 0.9-7.0 [facility] Comment on above: Performed By: #### A MM #### [facility] [address] [place] [address] Dr. Nilay Gibbs Erythrocyte distribution width (RBC) [Ratio] 14.0 % Normal 11.0-15.0 [facility] Comment on above: Performed By: #### A MM #### [facility] [address] [address] [address] Nilay Gibbs Hematocrit (Bld) [Volume fraction] 40.2 % Critically low 42.0-54.0 [facility] Comment on above: Performed By: #### A MM #### [facility] [address] [address] [address] Nilay Gibbs Hemoglobin (Bld) [Mass/Vol] 13.7 g/dL Critically low 14.0-18.0 [facility] Comment on above: Performed By: #### A MM #### [facility] [address] [address] [address] Nilay Gibbs IG # 0.01 10e3/ul Normal 0.00-0.03 [facility] Comment on above: Performed By: #### A MM #### [facility] [address] [place] [address] Dr. Nilay Gibbs IG % 0.2 % Normal 0.0-0.5 [facility] Comment on above: Performed By: #### A MM #### [facility] [address] [place] [address] Dr. Nilay Gibbs LYMPH # 2.1 103/ul Normal 1.2-3.8 [facility] Comment on above: Performed By: #### A MM #### [facility] [address] [place] [address] Dr. Nilay Gibbs Lymphocytes/100 WBC (Bld) 37.1 % Normal 20.5-60.0 [facility] Comment on above: Performed By: #### A MM #### [facility] [address] [place] [address] Dr. Nilay Gibbs MANUAL DIFF REQ NO Normal [facility] Comment on above: Performed By: #### A MM #### [facility] [address] [place] [address] Dr. Nilay Gibbs MCH (RBC) [Entitic mass] 30.1 pg Normal 25.9-34.0 [facility] Comment on above: Performed By: #### A MM #### [facility] [address] [address] [address] Nilay Gibbs MCHC (RBC) [Mass/Vol] 34.1 g/dL Normal 29.9-35.2 [facility] Comment on above: Performed By: #### A MM #### [facility] [address] [place] [address] Dr. Nilay Gibbs MCV (RBC) [Entitic vol] 88.4 fL Normal 80.0-94.0 [facility] Comment on above: Performed By: #### A MM #### [facility] [address] [place] [address] Dr. Nilay Gibbs MONO # 0.4 103/ul Normal 0.3-0.8 [facility] Comment on above: Performed By: #### A MM #### [facility] [address] [place] [address] Dr. Nilay Gibbs Monocytes/100 WBC (Bld) 7.2 % Normal 1.7-12.0 [facility] Comment on above: Performed By: #### A MM #### [facility] [address] [place] [address] Dr. Nilay Gibbs NEUT # 3.1 103/ul Normal 1.4-6.5 [facility] Comment on above: Performed By: #### A MM #### [facility] [address] [place] [address] Dr. Nilay Gibbs Neutrophils/100 WBC (Bld) 53.4 % Normal 43.0-75.0 [facility] Comment on above: Performed By: #### A MM #### [facility] [address] [place] [address] Dr. Nilay Gibbs Platelet mean volume (Bld) [Entitic vol] 10.3 fL Normal 9.5-13.5 [facility] Comment on above: Performed By: #### A MM #### [facility] [address] [place] [address] Dr. Nilay Gibbs PLT 254 103/ul Normal 150-450 [facility] Comment on above: Performed By: #### A MM #### [facility] [address] [place], [place] [address] Dr. Nilay Gibbs RBC 4.55 106/ul Critically low 4.70-6.10 [facility] Comment on above: Performed By: #### A MM #### [facility] [address] [place], [place] [address] Dr. Nilay Gibbs WBC 5.7 103/ul Normal 4.0-11.0 [facility] Comment on above: Performed By: #### A MM #### [facility] [address] [place], [place] [address] HEAD WO CONon [...] RUFINA MARIN Date: 2021-09-27 10:27 Normal [facility] CTA HEAD WO W CONon 09-28-19 CTA HEAD WO W [facility] CTA HEAD WITH CONTRA ST: 09/27/2021 9:35 [...] by: NEL KING Date: 2021-09-27 12:19 Normal [facility] CTA NECK WO W LENNYon 09-28-19 22 CTA NECK WO W CON [...] NEL KING Date: 2021-09-27 12:06 Normal [facility] Creatine kinase [Enzymatic a ctivity/volume] in Serum or PlasmaOrdered By: Kristal Goldberg on 09-27-2021 CK [Catalytic activity/Vol] 181 U/L 22-269 [facility] Creatinine and Glomerular fi ltration rate.predicted panel (S/P/Bld)Ordered By: Kristal Goldberg on 09-27-2021 Creatinine [Mass/Vol] 1.36 mg/dL 0.64-1.27 [facility] Eosinophils Auto (Bld) [#/Vo l]Ordered By: Kristal Goldberg on 09-27-2021 Eosinophils (Bld) [#/Vol] 0.1 10*3/uL 0.0-0.45 [facility] Eosinophils/100 WBC Auto (Bl d)Ordered By: Kristal Goldberg on 09-27-2021 Eosinophils/100 WBC (Bld) 1.2 % . [facility] Erythrocyte distribution wid th Auto (RBC) [Ratio]Ordered By: Kristal Goldberg on 09-27-2021 Erythrocyte distribution width (RBC) [Ratio] 14.5 % 12.0-14.8 [facility] Estimated glomerular filtrat ion rate (GFR) non- AmericanOrdered By: Kristal Goldberg on 09-27-2021 GFR/1.73 sq M.predicted among non-blacks MDRD (S/P/Bld) [Vol rate/Area] > 60 mL/Min [facility] Globulin Calc (S) [Mass/Vol] Ordered By: Kristal Goldberg on 09-27-2021 Globulin (S) [Mass/Vol] 2.4 g/dL [facility] Hematocrit Auto (Bld) [Volum e fraction]Ordered By: Kristal Goldberg on 09-27-2021 Hematocrit (Bld) [Volume fraction] 40.8 % 38.8-50.0 [facility] Ketones Auto test strip (U) [Mass/Vol]Ordered By: Kristal Goldberg on 09-27-2021 Ketones (U) [Mass/Vol] Negative Negative [facility] Laboratory - CoagulationOrde red By: Kristal Goldberg on 09-27-2021 PT Coag (PPP) [Time] 11.8 s 9.0-12.9 [facility] - Hematology and Cell countsOrdered By: Kristal Goldberg on 09-27-2021 Nucleated RBC/100 WBC (Bld) [Ratio] 0.0 % 0-0.5 [facility] Lymphocytes Auto (Bld) [#/Vo l]Ordered By: Kristal Goldberg on 09-27-2021 Lymphocytes (Bld) [#/Vol] 1.8 10*3/uL 1.00-4.8 [facility] Lymphocytes/100 WBC Auto (Bl d)Ordered By: Kristal Goldberg on 09-27-2021 Lymphocytes/100 WBC (Bld) 31.2 % . [facility] MCH Auto (RBC) [Entitic mass ]Ordered By: Kristal Goldberg on 09-27-2021 MCH (RBC) [Entitic mass] 30.1 pg 27.5-35.2 [facility] MCHC Auto (RBC) [Mass/Vol]Or dered By: Kristal Goldberg on 09-27-2021 MCHC (RBC) [Mass/Vol] 33.4 g/dL 32.5-35.6 [facility] MCV Auto (RBC) [Entitic vol] Ordered By: Kristal Goldberg on 09-27-2021 MCV (RBC) [Entitic vol] 90.3 fL 83.5-101 [facility] Monocytes Auto (Bld) [#/Vol] Ordered By: Kristal Goldberg on 09-27-2021 Monocytes (Bld) [#/Vol] 0.3 10*3/uL 0.0-0.8 [facility] Monocytes/100 WBC Auto (Bld) Ordered By: Kristal Goldberg on 09-27-2021 Monocytes/100 WBC (Bld) 6.0 % . [facility] Neutrophils Auto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 [facility] is having technical difficulties and that their version of mychart is down along with the phone system. He needs a refill of a tapered prednisone sent to [facility] in [place], . Please advise. Patient has been identified by name and birthdate. Duration of symptoms: N/A Person calling: self Call patient at: at home [phone] (home) [phone] (cell) Was an appointment scheduled: No Closing statement: Results or non-symptom based questions: Thank you for calling [facility], your call will be returned within the next business day. [place] documented in this encounter [facility] 08-14-2022 Note HNO ID: [id number] Author: Delmy Boyle MD Service: ? Author [...] arthritic flares once every 4 months. 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 Jaime in [place] who did diagnostic knee aspiration which according to patient was positive for uric acid crystals. Treated with steroids and continued allopurinol. He has not seen Dr. Jaime since 2014. In 2014, he was hospitalized in [place] for acute polyarthritis. Saw bureau chief while in hospital who told him that [...] shoulder surgery by Dr. Tc Coffey at [facility]. No post op complications. Currently on PT - still working on shoulder ROM. 4. GENERAL HEALTH MAINTENANCE -continue follow up on his CKD with nephrology -he will follow up with his PCP for his general health issues RTC in 7 mon, sooner if needed INTERVAL HISTORY -at [facility], he was advised to increase allopurinol from 300 mg BID to 350 mg qam and 300 mg qpm but he is actually taking allopurinol 400 mg qam and 300 qpm instead. Tolerating this higher dose without issues. -He stopped drinking Nov 2021. He started drinking some since [facility]. -he had 2 flares of joint pain [...] Idiopathic chronic gout of multiple sites with [facility] Rheumatology Delmy Boyle MD 11/29/2020 Chronic left shoulder pain Rheumatology Delmy Boyle MD Upcoming Rheumatology Appointments - Next 365 Days Visit Type Date Time Department [facility] MEDICAL 08/14/2022 11:40 AM [facility] REJ CBC: None on file in the [...] use of medications documented in this encounter [facility] 04-01-2022 Miscellaneous Notes The following approved medication [...] 365 Days Visit Type Date Time Department [facility] 08/14/2022 11:40 AM [facility] REJ CBC: None on file in the [...] Ordered Last Rel. URIC ACID BLOOD [SQURIC] 1/4 Once per month 05/30/22 05/30/21 12/29/21 Auth. [...] use of medications documented in this encounter [facility] 01-01-2022 Instructions Delmy Boyle MD - 01/01/2022 [...] at your visit. documented in this encounter [facility] 01-01-2022 History of Present illness Narrative Images [...] arthritic flares once every 4 months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 Jaime in [place] who did diagnostic knee aspiration which according to patient was positive for uric acid crystals. Treated with steroids and continued allopurinol. He has not seen Dr. Jaime since 2014. In 2014, he was hospitalized in [place] for acute polyarthritis. Saw bureau chief while in hospital who told him that [...] shoulder surgery by Dr. Tc Coffey at [facility]. No post op complications. 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 documented in this encounter [facility] 12-22-2021 Miscellaneous Notes The following approved medication [...] Idiopathic chronic gout of multiple sites with [facility] Rheumatology Delmy Boyle MD Upcoming Rheumatology Appointments - Next 365 Days Visit Type Date Time Department [facility] 01/01/2022 11:20 AM [facility] REJ CBC: None on file in the [...] Lab Orders None documented in this encounter [facility] 12-10-2021 Discharge summary Note Date/Time December 10, 2021 10:19am [facility] [address] [place] [address] Discharge Summary Signed Patient: Nick Wray MR#: [id number] : 1990 Acct:[id number] Age/Sex: 31 / M Adm Date: 2 Loc: Room: [address] [place] [address]: Adam Young MD Copies to: [...] called EMS and he was taken to [facility] and subsequently brought here.? He says [...] Rates his depression today 10/10 and anxiety 9/10.? Says that most of his depression is [...] No activity restrictions. Instructions: Depression, Adult (DC), [facility] DC Instructions Stand Alone Forms: [...] DAY NEEDED FOR 30 DAYS Follow Up: [facility] [Outside] [facility] [Outside] ( manager winter: (Insert date/time here) Therapy:? (insert date/time here) Intake: (Insert date/time here) Please bring a copy of your photo ID, insurance card, and proof of household income.? Psychiatry: (Insert date/time here) Group: (Insert date/time here ) ) Documented By: Nicola Leyva MD 2 1016 Signed By: <Electronically signed by Nicola Leyva MD> 12/10/21 1019 [facility] Work Phone: 1(104) 845-593910-11-2022 Progress note Author Nicola pelayo [facility] December 09, 2021 10:42am Note Date/Time December 09, 2021 8 :48am [facility] [address] [place] [address] Psychiatry Progress Note Signed Patient: Nick Wray MR#: [id number] : 1990 Acct:[id number] Age/Sex: 31 / M Adm Date: 2 Loc: 1S Room: 0D8307-6 Type : ADM IN Attending Dr: Adam [...] illness from him. He rates his depression 09/07 and anxiety 11/08. Says he is mostly [...] <Electronically signed by Nicola Leyva MD> 12/09/21 [facility] Work Phone: 1(245) 332-298710-10-2022 History and physical note Author Nicola pelayo [facility] December 08, 2021 1:32pm Note Date/Time December 08, 2021 1 2:43pm [facility] [address] [place] [address] Psychiatry H&P Signed Patient: Nick Wray MR#: [id number] : 1990 Acct:[id number] Age/Sex: 31 / M Adm Date: 2 Loc: Room: [address] [place] [address] Type: ADM IN Attending Dr: Adam Young [...] called EMS and he was taken to [facility] and subsequently brought here. 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 Author Type: [...] BY: RT Kanchan(R) November 29, 2020 10:24 [id number] NoteHNO ID: [id number] Author: Felicitas Perez RDMS Service: Radiology Author Type: Mechanical Project Manager Type: Progress Notes Filed: 08/19/2020 12:51 PM [...] Not applicable SIGNED BY: Felicitas Perez RDMS [facility] August 19, 2020 12:51 [id number] NoteHNO ID: [id number] Author: Harris NjRtBritany Sinclair Service: Radiology Author Type: Pension Manager Type: Progress Notes Filed: 04/02/2020 9:49 AM [...] BY: RT Ramy April 02, 2020 9:48 [id number] History of Past illness Narrative* Problem Noted Date Resolved Date Rheumatoid arthritis flare 04/25/201705/10 documented as of this encounter (statuses as of 08/05/2021) [place] [address] History of Past illness Narrative* Problem Noted Date Resolved Date Rheumatoid arthritis flare 04/25/201705/10 documented as of this encounter (statuses as of 12/22/2021) [place] [address] History of Past illness Narrative* Problem Noted Date Resolved Date Rheumatoid arthritis flare 04/25/201705/10 documented as of this encounter (statuses as of 01/01/2022) [place] [address] History of Past illness Narrative* Problem Noted Date Resolved Date Rheumatoid arthritis flare 04/25/201705/10 documented as of this encounter (statuses as of 04/02/2022) [place] [address] History of Past illness Narrative* Problem Noted Date Resolved Date Rheumatoid arthritis flare 04/25/201705/10 documented as of this encounter (statuses as of 06/30/2022) [place] [address] History of Past illness Narrative* Problem Noted Date Diagnosed Date Resolved Date Rheumatoid arthritis flare 04/25/2017 0 05/10/2017 documented as of this encounter (statuses as of 11/14/2022) [place] [address] History of Past illness Narrative* Problem Noted Date Diagnosed Date Resolved Date Rheumatoid arthritis flare 04/25/2017 0 05/10/2017 documented as of this encounter (statuses as of 11/14/2022) [facility] Diagnosis 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) [facility] noteNo assessment information availableReg[facility] Work Phone: Evaluation note* Diagnosis Onset Date Resolution Status Major depressive disorder, recurrent, moderate acute [facility] Work Phone: Evaluation note* Diagnosis 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) [facility] Diagnosis Idiopathic chronic gout of multiple sites with tophus- Primary Chronic gouty arthropathy with tophus (tophi) Encounter for long-term (current) use of medications Encounter for long-term (current) use of other medications Stage 3 chronic kidney disease, unspecified whether stage 3a or 3b CKD (HCC) [facility] Diagnosis 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) [facility] Diagnosis 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) [facility] Diagnosis Other chronic pain- Primary documented in this encounter [facility] Discharge instructions Additional Instructions Rest Apply ice to affected area Avoid electronics Follow-up with neurology on Wednesday Tylenol Motrin if needed for discomfort Return here if you develop any numbness, tingling, unilateral weakness, unsteady gait, confusion or any other concernsP[facility] Work Phone: Hospital Discharge instructions Additional Instructions Regular diet. 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 dical Specialist DATE CREATED AUTHOR AUTHOR'S ORGANIZ ATION 08/07/2022 [facility] DATE CREATED AUTHOR AUTHOR'S ORGANIZ ATION 2023 [facility] DATE CREATED AUTHOR AUTHOR'S ORGANIZ ATION 02/26/2023 [facility] DATE CREATED AUTHOR AUTHOR'S ORGANIZ ATION 03/09/2023 [facility] DATE CREATED AUTHOR AUTHOR'S ORGANIZ ATION 05/02/2023 [facility] DATE CREATED AUTHOR AUTHOR'S ORGANIZ ATION 05/03/2023 [facility] dical Specialists EPIC Source Comments (unrecognize d section and content) In the event this informatio n is protected by the Federal Confidentiality of Alcohol and Drug Abuse Patient Records regulations: The Federal rules restrict any use of the information to criminally investigate or prosecute any alcohol or drug abuse patient.[facility] the event this information is protected by the Federal Confidentiality of Alcohol and Drug Abuse Patient Records regulations: The Federal rules restrict any use of the information to criminally investigate or prosecute any alcohol or drug abuse patient.[facility] the event this information is protected by the Federal Confidentiality of Alcohol and Drug Abuse Patient Records regulations: The Federal rules restrict any use of the information to criminally investigate or prosecute any alcohol or drug abuse patient.[facility] Memorial[facility] the event this information is protected by the Federal Confidentiality of Alcohol and Drug Abuse Patient Records regulations: The Federal rules restrict any use of the information to criminally investigate or prosecute any alcohol or drug abuse patient.[facility] Memorial[facility] the event this information is protected by the Federal Confidentiality of Alcohol and Drug Abuse Patient Records regulations: The Federal rules restrict any use of the information to criminally investigate or prosecute any alcohol or drug abuse patient.[facility] Memorial[facility] the event this information is protected by the Federal Confidentiality of Alcohol and Drug Abuse Patient Records regulations: The Federal rules restrict any use of the information to criminally investigate or prosecute any alcohol or drug abuse patient.[facility] Memorial[facility] the event this information is protected by the Federal Confidentiality of Alcohol and Drug Abuse Patient Records regulations: The Federal rules restrict any use of the information to criminally investigate or prosecute any alcohol or drug abuse patient.[facility] Care Teams (unrecognized sec tion and content) [employer] Relationship Specialty Start Date End Date Leydi [...] Young MD Admit Provider, Attending Provider Active [employer] Relationship Specialty Start Date End Date Leydi Aceves PCP - General Family Medicine 01/07/15 [employer] Relationship Specialty Start Date End Date Leydi Aceves PCP - General Family Medicine 01/07/15 [employer] Relationship Specialty Start Date End Date Leydi Aceves PCP - General Family Medicine 01/07/15 [employer] Relationship Specialty Start Date End Date Leydi Aceves PCP - General Family Medicine 01/07/15 [employer] Relationship Specialty Start Date End Date Leydi Aceves MD PCP - General Family Medicine 01/07/15 [employer] Relationship Specialty Start Date End Date Leydi Aceves MD PCP - General Family Medicine 01/07/15 [employer] Relationship Specialty Start Date End Date Leydi Aceves MD [address] [facility] [address] [place] [address] PCP - General [facility] 07/29/22 Leydi Aceves MD [address] [facility] [address] [place] [address] PCP - [facility] 05/30/22 [employer] Relationship Specialty Start Date End Date Leydi Aceves MD [address] [facility] [address] [place] [address] PCP - General [facility] 07/29/22 Leydi Aceves MD [address] [facility] [address] [place] [address] PCP - [facility] 05/30/22 Goals (unrecognized section and content) Goals [...] BE BASED ON THE PRIMARY CLINICAL RECORDS. [employer] provides no warranty or guarantee of the accuracy or completeness of information in this document.
--- NOTE | 2023-05-08 19:16 | ED_ITS ---
HPI - Psych General Chief Complaint: Psychiatric Symptoms Stated Complaint: depression Time Seen by Provider: 05/08/23 18:56 Source: Reports patient Mode of arrival: ambulance History of Present Illness HPI Narrative: patient arrives via squad. States his family sent him because he didn't want to do anything. Just lying around. Not more specific as to what is going on with him. Admits he is depressed and has past history of depression and mental health hospitalizations. Denies suicidal thoughts or any attempt to overdose. Denies use of street drugs complaint: feels depressed Related Data Home Medications Medication Instructions Recorded Confirmed allopurinol 300 mg tablet 600 mg PO DAILY 08/31/22 04/21/23 alprazolam 0.5 mg tablet 0.5 mg PO TID PRN anxiety 08/31/22 04/21/23 amlodipine 10 mg tablet 10 mg PO QDAY 08/31/22 04/21/23 carvedilol 6.25 mg tablet 6.25 mg PO Q12H 08/31/22 04/21/23 celecoxib 100 mg capsule 100 mg PO DAILY PRN RA flare 08/31/22 04/21/23 clonidine HCl 0.1 mg tablet 0.1 mg PO BID 08/31/22 04/21/23 colchicine 0.6 mg tablet 0.6 mg PO .every other 08/31/22 04/21/23 quetiapine 50 mg tablet See Rx Instructions PO .hs 08/31/22 04/21/23 tramadol 50 mg tablet 50 mg PO Q6H PRN pain 08/31/22 04/21/23 gabapentin 300 mg capsule 300 mg PO TID 02/15/23 04/21/23 (Neurontin) cyclobenzaprine 10 mg tablet 10 mg PO TID PRN muscle spasm 03/06/23 04/21/23 Previous Rx's Medication Instructions Recorded oxycodone-acetaminophen 5 mg-325 1 tab PO Q6H PRN pain (scale score 02/16/23 mg tablet (Percocet) 4-6) #10 tabs oxycodone-acetaminophen 5 mg-325 2 tab PO Q6H PRN pain (scale score 02/16/23 mg tablet (Percocet) 7-10) #10 tabs Allergies Allergy/AdvReac Type Severity Reaction Status Date / Time No Known Drug Allergies Allergy Verified 12/23/23 12:59 Review of Systems ROS Status of ROS 10 or more systems reviewed and unremark able except as noted in history and below PFSH PFSH Medical History MONO (generalized anxiety disorder) ?F41.1 - Generalized anxiety disorder (ICD-10) Rheumatoid arthritis ?M06.9 - Rheumatoid arthritis, unspecified (ICD-10) Benign essential hypertension ?I10 - Essential (primary) hypertension (ICD-10) Gouty arthritis ?M10.9 - Gout, unspecified (ICD-10) Acute postoperative pain of knee ?G89.18 - Other acute postprocedural pain (ICD-10) ?M25.569 - Pain in unspecified knee (ICD-10) Visit for wound check ?Z51.89 - Encounter for other specified aftercare (ICD-10) Septic prepatellar bursitis of right knee ?M71.161 - Other infective bursitis, right knee (ICD-10) Acute viral syndrome ?B34.9 - Viral infection, unspecified (ICD-10) Diarrhea ?R19.7 - Diarrhea, unspecified (ICD-10) Rheumatoid arthritis flare ?M06.9 - Rheumatoid arthritis, unspecified (ICD-10) Polyarthralgia ?M25.50 - Pain in unspecified joint (ICD-10) Rheumatoid arthritis flare ?M06.9 - Rheumatoid arthritis, unspecified (ICD-10) Weakness ?R53.1 - Weakness (ICD-10) Mild shortness of breath ?R06.02 - Shortness of breath (ICD-10) Headache ?R51.9 - Headache, unspecified (ICD-10) Polyarthralgia ?M25.50 - Pain in unspecified joint (ICD-10) Flare of rheumatoid arthritis ?M06.9 - Rheumatoid arthritis, unspecified (ICD-10) Arthralgia ?M25.50 - Pain in unspecified joint (ICD-10) Drug-seeking behavior ?Z76.5 - Malingerer [conscious simulation] (ICD-10) Surgical History (Updated 04/20/23 @ 23:12 by April Sierra RN) Total knee replacement status ?Z96.659 - Presence of unspecified artificial knee joint (ICD-10) H/O shoulder surgery ?Z98.890 - Other specified postprocedural states (ICD-10) Social History (Updated 04/20/23 @ 23:15 by April Sierra RN) Smoking status: Never smoker Nicotine containing products detail: chew tobacco Highest level of school completed/degree received: Associate degree: occupational, technical, vocational program Exam Constitutional Vital Signs, click to edit/add: Last Vital Signs Temp 98.5 F 05/08/23 18:48 Pulse 102 H 05/08/23 19:35 Resp 16 05/08/23 19:35 BP 151/94 H 05/08/23 22:37 Pulse Ox 98 05/08/23 18:48 O2 Del Method Room Air 05/08/23 18:48 Common normals: no apparent distress, average body habitus, oriented x3, no limitations, healthy appearing and alert HENMT Common normals: normocephalic and head/scalp atraumatic Eye Common normals: EOMs intact bilaterally and conjunctivae normal Respiratory Common normals: normal respiratory effort, no retractions and no use of accessory muscles Cardio Common normals: regular rate, regular rhythm, S1 normal heart sound and S2 normal heart sound GI Common normals: Normal to inspection, nondistended, normoactive bowel sounds present and soft to palpation Extremity Common normals: normal to inspection and full ROM Neuro Common normals: oriented x3, CN's II-XII intact bilaterally, moves all extremities, no focal motor deficits and no sensory deficits noted Psych Common normals: affect normal (flat affect) Speech: soft Course Vital Signs Vital signs: Vital Signs Temperature 98.5 F 05/08/23 18:48 Pulse Rate 98 H 05/08/23 18:48 Respiratory Rate 16 05/08/23 18:48 Blood Pressure 180/120 H 05/08/23 18:48 Pulse Oximetry 98 05/08/23 18:48 Oxygen Delivery Method Room Air 05/08/23 18:48 Temperature 98.5 F 05/08/23 18:48 Pulse Rate 102 H 05/08/23 19:35 Respiratory Rate 16 05/08/23 19:35 Blood Pressure 151/94 H 05/08/23 22:37 Pulse Oximetry 98 05/08/23 18:48 Oxygen Delivery Method Room Air 05/08/23 18:48 MDM - Psych MDM Narrative Medical decision making narrative: patient presents depressed. Inactive. Feels like he needs help. Smoke to mental health and he has been accepted voluntary admission to [address] [place] [address]. Urine drug screen positive for THC Lab Data Labs: Lab Results 05/08/23 05/08/23 Range/Units 19:27 23:46 WBC 7.5 (4.0-11.0) 10^3/uL RBC 4.47 L (4.70-6.10) 10^6/uL Hgb 13.1 L (14.0-18.0) g/dL Hct 39.7 L (42.0-54.0) % MCV 88.8 (80.0-94.0) fL MCH 29.3 (25.9-34.0) pg MCHC 33.0 (29.9-35.2) g/dL RDW 14.2 (11.0-15.0) % Plt Count 335 (150-450) 10^3/uL MPV 10.4 (9.5-13.5) fL Neut % (Auto) 56.8 (43.0-75.0) % Lymph % (Auto) 34.8 (20.5-60.0) % [place] % (Auto) 7.2 (1.7-12.0) % Eos % (Auto) 0.4 L (0.9-7.0) % Baso % (Auto) 0.7 (0.2-2.0) % Neut # (Auto) 4.3 (1.4-6.5) 10^3/uL Lymph # (Auto) 2.6 (1.2-3.8) 10^3/uL [place] # (Auto) 0.5 (0.3-0.8) 10^3/uL Eos # (Auto) 0.0 (0.0-0.7) 10^3/uL Baso # (Auto) 0.1 (0.0-0.1) 10^3/uL Abs Immat Gran (auto) 0.01 (0.00-0.03) 10^3/uL Imm/Tot Granulo (auto) 0.1 (0.0-0.5) % Sodium 141 (136-145) mmol/L Potassium 3.3 L (3.5-5.1) mmol/L Chloride 105 (98-107) mmol/L Carbon Dioxide 25.6 (21.0-32.0) mmol/L Anion Gap 13.7 BUN 16.0 (7.0-18.0) mg/dL Creatinine 1.34 H (0.70-1.30) mg/dL Est GFR ( Amer) >60 (>=60) Est GFR (Non-Af Amer) >60 (>=60) BUN/Creatinine Ratio 11.9 Glucose 102 (74-106) mg/dL Calcium 9.4 (8.5-10.1) mg/dL Total Bilirubin 0.5 (0.2-1.0) mg/dL AST 16 (15-37) U/L ALT 30 (16-63) U/L Alkaline Phosphatase 83 (46-116) U/L Total Protein 7.3 (6.4-8.2) g/dL Albumin 3.8 (3.4-5.0) g/dL Globulin 3.5 g/dL Albumin/Globulin Ratio 1.1 Salicylates <2.8 (<=19.9) mg/dL Urine Opiates Screen Negative (NEGATIVE) Ur Buprenorphine Scrn Negative (NEGATIVE) Ur Oxycodone Screen Negative (NEGATIVE) Urine Methadone Screen Negative (NEGATIVE) Acetaminophen <2.0 L (10.0-30.0) ug/mL Ur Barbiturates Screen Negative (NEGATIVE) U Tricyclic Antidepress Negative (NEGATIVE) Ur Phencyclidine Scrn Negative (NEGATIVE) Ur Amphetamines Screen Negative (NEGATIVE) U Methamphetamines Scrn Negative (NEGATIVE) U Benzodiazepines Scrn Negative (NEGATIVE) Urine Cocaine Screen Negative (NEGATIVE) U Cannabinoids Screen Positive A (NEGATIVE) Ethanol Quant <3 mg/dL Discharge Plan Discharge Chief Complaint: Psychiatric Symptoms Clinical Impression: Depression Patient Disposition: [facility] Discharge Location: [facility]
[2023-05-08 19:33] LABS: Basophils Absolute Auto 0.1 10^3/uL (0.0-0.1); Basophils Percent Auto 0.7 % (0.2-2.0); Eosinophils Percent Auto 0.4 % (0.9-7.0); Hematocrit 39.7 % (42.0-54.0); Hemoglobin 13.1 g/dL (14.0-18.0); Immature Granulocytes Abs Auto 0.01 10^3/uL (0.00-0.03); Immature Granulocytes Pct Auto 0.1 % (0.0-0.5); Lymphocytes Absolute Auto 2.6 10^3/uL (1.2-3.8); Lymphocytes Percent Auto 34.8 % (20.5-60.0); Mean Corpuscular Hemoglobin 29.3 pg (25.9-34.0); Mean Corpuscular Volume 88.8 fL (80.0-94.0); Mean Platelet Volume 10.4 fL (9.5-13.5); Monocytes Absolute Auto 0.5 10^3/uL (0.3-0.8); Monocytes Percent Auto 7.2 % (1.7-12.0); Neutrophils Absolute Auto 4.3 10^3/uL (1.4-6.5); Neutrophils Percent Auto 56.8 % (43.0-75.0); Platelet Count 335 10^3/uL (150-450); Red Blood Count 4.47 10^6/uL (4.70-6.10); Red Cell Distribution Width 14.2 % (11.0-15.0); White Blood Count 7.5 10^3/uL (4.0-11.0)
[2023-05-08 19:58] LABS: Alanine Aminotransferase 30 U/L (16-63); Albumin Globulin Ratio 1.1; Albumin Level 3.8 g/dL (3.4-5.0); Alkaline Phosphatase 83 U/L (46-116); Anion Gap 13.7; Aspartate Amino Transferase 16 U/L (15-37); BUN Creatinine Ratio 11.9; Bilirubin Total 0.5 mg/dL (0.2-1.0); Calcium 9.4 mg/dL (8.5-10.1); Carbon Dioxide 25.6 mmol/L (21.0-32.0); Chloride 105 mmol/L (98-107); Estimated GFR (African America >60 (>=60); Estimated GFR (Non-African Ame >60 (>=60); Globulin 3.5 g/dL; Glucose 102 mg/dL (74-106); Potassium 3.3 mmol/L (3.5-5.1); Salicylate <2.8 mg/dL (<=19.9); Sodium 141 mmol/L (136-145); Total Protein 7.3 g/dL (6.4-8.2)
[2023-05-08] MEDS: CLONIDINE HCL 0.1 MG TABLET 0.100000000000000006 MG PO (19:59)
[2023-05-08 20:00] LABS: Acetaminophen <2.0 ug/mL (10.0-30.0); Ethanol <3 mg/dL
[2023-05-08] MEDS: IBUPROFEN 400 MG TABLET 800 MG PO (21:21)
--- NOTE | 2023-05-08 23:50 | PC.NURSE ---
Patient standing in hallway asking, am I going to [address], repeatedly. patient notified again of process. patient states, but i just talked to them, give me the phone and ill call them back . Patient again told how the process works and that [facility] will call us when they have a plan in place. Patient encouraged to provide urine sample. patient given cup and directed to bathroom. patient found a few moments later urinating into the sink. patient advised that this is inappropriate and will not be tolerated. Patient noted to have flat affect and stands staring at this nurse. urine sample dropped off at lab.
[2023-05-09 00:07] LABS: Amphetamine Screen Urine NEGATIVE (NEGATIVE); Barbiturates Screen Urine NEGATIVE (NEGATIVE); Benzodiazepines Screen Urine NEGATIVE (NEGATIVE); Buprenorphine Screen Urine NEGATIVE (NEGATIVE); Cannabinoid Screen Urine POSITIVE (NEGATIVE); Cocaine Screen Urine NEGATIVE (NEGATIVE); Methadone Screen Urine NEGATIVE (NEGATIVE); Methamphetamines Screen Urine NEGATIVE (NEGATIVE); Opiate Screen Urine NEGATIVE (NEGATIVE); Oxycodone Screen Urine NEGATIVE (NEGATIVE); Phencyclidine Screen Urine NEGATIVE (NEGATIVE); Tricyclic Antidepressant Urine NEGATIVE (NEGATIVE)
--- NOTE | 2023-05-09 00:23 | PC.NURSE ---
Patient requesting xanax, physician notified.
--- NOTE | 2023-05-09 00:34 | PC.NURSE ---
Patient updated that he has been accepted at [address] and day car will be here to get him within 20-30 min
== END 2023-05-09 01:44 ==
PROVIDERS: Emergency Provider Internal Medicine; PCP Family Medicine
DX: F32.A Depression, unspecified (principal); F41.1 Generalized anxiety disorder; M06.9 Rheumatoid arthritis, unspecified; M10.9 Gout, unspecified; Z96.659 Presence of unspecified artificial knee joint; F17.220 Nicotine dependence, chewing tobacco, uncomplicated
CPT/HCPCS: 36415; 80053; 80179; 80307; 80320; 80329; 85025; 93005; 99285

== ENCOUNTER 2023-06-02 22:09 | Inpatient (IN) | payer OTHER, SELFPAY ==
[2023-06-02] VITALS (9 sets, daily range): BP systolic 124–133; BP diastolic 83–85; PULSE 83–105; O2SAT 89–100
--- NOTE | 2023-06-02 22:15 | ECG_ITS ---
[facility] Test Date: 2023-06-02 Pat Name: TRU CARDOZA Department: Room: - Gender: Male [employer]: : 1990 Requested By: LEYDI ACEVES Order Number: [id number] Reading MD: LO JIMENEZ Measurements Intervals [place] Rate: 98 P: 67 TX: 152 QRS: 81 QRSD: 90 T: 52 QT: 452 QTc: 507 Interpretive Statements 1100 Sinus rhythm 6120 Possible right atrial enlargement 8304 Long QTc interval 9150 abnormal ECG Compared to ECG 05/08/2023 18:54:31 Incomplete right bundle-branch block no longer present Electronically Signed On 06-05-2023 8:18:24 EDT by LO JIMENEZ
[2023-06-02] MEDS: LORAZEPAM 2 MG/ML VIAL 1 MG IV (22:25)
--- NOTE | 2023-06-02 22:46 | PC.NURSE ---
22:20 attempted lund placement but cath would not advance. 2230 attempted cath with 8 wallisian unsuccessful. 22:36 was able to pass a 14 [place] cath and obtain clear yellow urine.
[2023-06-02] MEDS: 0.9 % SODIUM CHLORIDE 1,000 ML 1000 ML IV (22:50)
[2023-06-02 22:51] LABS: Basophils Percent Auto 0.1 % (0.2-2.0); Hematocrit 44.7 % (42.0-54.0); Hemoglobin 14.8 g/dL (14.0-18.0); Immature Granulocytes Abs Auto 0.08 10^3/uL (0.00-0.03); Immature Granulocytes Pct Auto 0.4 % (0.0-0.5); Lymphocytes Absolute Auto 1.3 10^3/uL (1.2-3.8); Lymphocytes Percent Auto 6.5 % (20.5-60.0); Mean Corpuscular HGB Conc 33.1 g/dL (29.9-35.2); Mean Corpuscular Hemoglobin 29.3 pg (25.9-34.0); Mean Corpuscular Volume 88.5 fL (80.0-94.0); Mean Platelet Volume 10.7 fL (9.5-13.5); Monocytes Absolute Auto 1.4 10^3/uL (0.3-0.8); Monocytes Percent Auto 6.8 % (1.7-12.0); Neutrophils Absolute Auto 17.6 10^3/uL (1.4-6.5); Neutrophils Percent Auto 86.2 % (43.0-75.0); Platelet Count 306 10^3/uL (150-450); Red Blood Count 5.05 10^6/uL (4.70-6.10); Red Cell Distribution Width 14.3 % (11.0-15.0); White Blood Count 20.4 10^3/uL (4.0-11.0)
[2023-06-02 23:01] LABS: Salicylate <2.8 mg/dL (<=19.9)
[2023-06-02 23:08] LABS: Alanine Aminotransferase 96 U/L (16-63); Albumin Globulin Ratio 1.3; Albumin Level 4.4 g/dL (3.4-5.0); Alkaline Phosphatase 100 U/L (46-116); Aspartate Amino Transferase 39 U/L (15-37); BUN Creatinine Ratio 10.5; Bilirubin Total 0.3 mg/dL (0.2-1.0); Calcium 9.5 mg/dL (8.5-10.1); Carbon Dioxide 25.2 mmol/L (21.0-32.0); Chloride 111 mmol/L (98-107); Estimated GFR (African America 34 (>=60); Estimated GFR (Non-African Ame 28 (>=60); Globulin 3.4 g/dL; Glucose 126 mg/dL (74-106); Potassium 4.2 mmol/L (3.5-5.1); Sodium 152 mmol/L (136-145); Total Protein 7.8 g/dL (6.4-8.2)
--- NOTE | 2023-06-02 23:08 | PC.NURSE ---
Patient has 15-20 second periods of Apnea
[2023-06-02 23:09] LABS: Acetaminophen <2.0 ug/mL (10.0-30.0); Ethanol <3 mg/dL; Lactate/Lactic Acid 4.1 mmol/L (0.4-2.0)
[2023-06-02 23:43] LABS: Bilirubin Urine NEGATIVE (NEGATIVE); Blood Urine SMALL (NEGATIVE); Clarity Urine CLEAR (CLEAR); Color Urine YELLOW (YELLOW); Glucose Urine UA NEGATIVE (NEGATIVE); Ketones Urine NEGATIVE (NEGATIVE); Leukocyte Esterase Urine NEGATIVE (NEGATIVE); Nitrite Urine NEGATIVE (NEGATIVE); Protein Urine 100 mg/dL (NEG/TRACE); Urine Microscopic Indicated YES; Urobilinogen Urine 0.2 EU/dL (0.2-1.0)
[2023-06-02] MEDS: PIPERACILLIN SODIUM/TAZOBACTAM 4.5 GM in 0.9 % SODIUM CHLORIDE 50 ML IV (23:43)
[2023-06-02 23:56] LABS: Amphetamine Screen Urine NEGATIVE (NEGATIVE); Bacteria Urine NONE SEEN #/HPF (NONE SEEN); Barbiturates Screen Urine NEGATIVE (NEGATIVE); Benzodiazepines Screen Urine NEGATIVE (NEGATIVE); Buprenorphine Screen Urine NEGATIVE (NEGATIVE); Cannabinoid Screen Urine NEGATIVE (NEGATIVE); Cast Seen? NONE SEEN #/LPF (NONE SEEN); Cocaine Screen Urine NEGATIVE (NEGATIVE); Crystals Seen? None Seen #/HPF (None Seen); Methadone Screen Urine NEGATIVE (NEGATIVE); Methamphetamines Screen Urine NEGATIVE (NEGATIVE); Mucus Urine SMALL (NONE SEEN); Opiate Screen Urine NEGATIVE (NEGATIVE); Oxycodone Screen Urine NEGATIVE (NEGATIVE); Phencyclidine Screen Urine NEGATIVE (NEGATIVE); Squamous Epithelial Cell Urine RARE #/LPF (NONE/RARE); Tricyclic Antidepressant Urine NEGATIVE (NEGATIVE); Urine Culture Indicated NO; WBC Urine 0-2 #/HPF (NONE SEEN)
[2023-06-03] VITALS (26 sets, daily range): BP systolic 109–166; BP diastolic 78–100; PULSE 79–115; TEMP 36.3–37.4; O2SAT 86–100; BMI 27.3
--- NOTE | 2023-06-03 00:09 | ED_ITS ---
HPI - Altered Mental Status General Chief Complaint: Altered Mental Status Stated Complaint: Overdose Time Seen by Provider: 06/02/23 22:09 Source: other Source comment: ems Mode of arrival: ambulance Limitations: altered mental status Related Data Home Medications ?Medication ?Instructions ?Recorded ?Confirmed allopurinol 300 mg tablet 600 mg PO DAILY 08/31/22 04/21/23 alprazolam 0.5 mg tablet 0.5 mg PO TID PRN anxiety 08/31/22 04/21/23 amlodipine 10 mg tablet 10 mg PO QDAY 08/31/22 04/21/23 carvedilol 6.25 mg tablet 6.25 mg PO Q12H 08/31/22 04/21/23 celecoxib 100 mg capsule 100 mg PO DAILY PRN RA flare 08/31/22 04/21/23 clonidine HCl 0.1 mg tablet 0.1 mg PO BID 08/31/22 04/21/23 colchicine 0.6 mg tablet 0.6 mg PO .every other 08/31/22 04/21/23 quetiapine 50 mg tablet See Rx Instructions PO .hs 08/31/22 04/21/23 tramadol 50 mg tablet 50 mg PO Q6H PRN pain 08/31/22 04/21/23 gabapentin 300 mg capsule 300 mg PO TID 02/15/23 04/21/23 (Neurontin) cyclobenzaprine 10 mg tablet 10 mg PO TID PRN muscle spasm 03/06/23 04/21/23 Previous Rx's ?Medication ?Instructions ?Recorded oxycodone-acetaminophen 5 mg-325 1 tab PO Q6H PRN pain (scale score 02/16/23 mg tablet (Percocet) 4-6) #10 tabs oxycodone-acetaminophen 5 mg-325 2 tab PO Q6H PRN pain (scale score 02/16/23 mg tablet (Percocet) 7-10) #10 tabs Allergies Allergy/AdvReac Type Severity Reaction Status Date / Time No Known Drug Allergies Allergy Verified 02/20/23 12:59 PFSH PFSH Medical History MONO (generalized anxiety disorder) ?F41.1 - Generalized anxiety disorder (ICD-10) Rheumatoid arthritis ?M06.9 - Rheumatoid arthritis, unspecified (ICD-10) Benign essential hypertension ?I10 - Essential (primary) hypertension (ICD-10) Gouty arthritis ?M10.9 - Gout, unspecified (ICD-10) Acute postoperative pain of knee ?G89.18 - Other acute postprocedural pain (ICD-10) ?M25.569 - Pain in unspecified knee (ICD-10) Visit for wound check ?Z51.89 - Encounter for other specified aftercare (ICD-10) Septic prepatellar bursitis of right knee ?M71.161 - Other infective bursitis, right knee (ICD-10) Acute viral syndrome ?B34.9 - Viral infection, unspecified (ICD-10) Diarrhea ?R19.7 - Diarrhea, unspecified (ICD-10) Rheumatoid arthritis flare ?M06.9 - Rheumatoid arthritis, unspecified (ICD-10) Polyarthralgia ?M25.50 - Pain in unspecified joint (ICD-10) Rheumatoid arthritis flare ?M06.9 - Rheumatoid arthritis, unspecified (ICD-10) Weakness ?R53.1 - Weakness (ICD-10) Mild shortness of breath ?R06.02 - Shortness of breath (ICD-10) Headache ?R51.9 - Headache, unspecified (ICD-10) Polyarthralgia ?M25.50 - Pain in unspecified joint (ICD-10) Flare of rheumatoid arthritis ?M06.9 - Rheumatoid arthritis, unspecified (ICD-10) Arthralgia ?M25.50 - Pain in unspecified joint (ICD-10) Drug-seeking behavior ?Z76.5 - Malingerer [conscious simulation] (ICD-10) Surgical History (Updated 04/20/23 @ 23:12 by April Sierra RN) Total knee replacement status ?Z96.659 - Presence of unspecified artificial knee joint (ICD-10) H/O shoulder surgery ?Z98.890 - Other specified postprocedural states (ICD-10) Social History (Updated 04/20/23 @ 23:15 by April Sierra RN) Smoking status: Never smoker Nicotine containing products detail: chew tobacco Highest level of school completed/degree received: Associate degree: occupational, technical, vocational program Exam Constitutional Vital Signs, click to edit/add: Last Vital Signs Pulse 83 06/02/23 23:45 Resp 16 06/02/23 23:45 BP 129/83 04/03/24 23:45 Pulse Ox 100 06/02/23 23:45 O2 Del Method Nasal Cannula 06/02/23 23:45 O2 Flow Rate 2 06/02/23 23:45 Course Vital Signs Vital signs: Vital Signs Pulse Rate 99 H 06/02/23 22:13 Respiratory Rate 24 H 06/02/23 22:13 Blood Pressure 128/85 06/02/23 22:13 Pulse Oximetry 99 06/02/23 22:13 Oxygen Delivery Method Nasal Cannula 06/02/23 22:13 Oxygen Delivery Flow Rate 2 06/02/23 22:13 Pulse Rate 83 06/02/23 23:45 Respiratory Rate 16 06/02/23 23:45 Blood Pressure 129/83 06/02/23 23:45 Pulse Oximetry 100 06/02/23 23:45 Oxygen Delivery Method Nasal Cannula 06/02/23 23:45 Oxygen Delivery Flow Rate 2 06/02/23 23:45 MDM - Altered Mental Status MDM Narrative Medical decision making narrative: 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 Blood drawn and sent for evaluation. He was ordered to receive 1 mg of Ativan. I also had the nurses get Geodon ready in case he started to act out. It was held since his QTc was 507. We did not end up needing to give that in the emergency department. White blood cell count was elevated and lactate was also elevated. Blood cultures were ordered and procalcitonin was also ordered. He was ordered to receive IV Zosyn. Other findings include an elevated sodium at 152, elevated chloride at 111, elevated BUN at 28 and elevated creatinine at 2.66. These values were above the patient's baseline. Patient was also found to have minimally elevated AST and ALT within normal alk phos. Urinalysis was negative for infection and his talk screen was negative. His salicylate, acetaminophen and ethanol levels were also negative. He had received 500 mL of normal saline IV fluid from EMS. He was ordered to receive additional liter in our emergency department. I discussed this case with the telehospitalist, Silvia. The plan is to admit this patient for continued normal saline IV fluid hydration and monitoring of his renal function, electrolytes and lactate level. Although he has elevated white blood cell count and elevated lactate, I do not have a source of infection at this time as he has an unremarkable respiratory status and his urinalysis was negative. Skin does not reveal sign of infection. The leukocytosis may be reactive. The lactate elevation may be secondary to his fluid status. He is not in acute kidney failure and has markedly elevated sodium and chloride. Likely secondary to free water/fluid depletion. I did not want to fluid overload the patient by giving him a large amount within a short period of time in the emergency department, but the plan will be to continue to give him normal saline IV fluid during his overnight hospitalization and then reassess his values in the morning. Medical Records Attestation: I reviewed the patient's medical records. Lab Data Attestation: I reviewed the patient's lab results. Labs: Lab Results 06/02/23 06/02/23 Range/Units 22:15 22:43 WBC 20.4 H (4.0-11.0) 10^3/uL RBC 5.05 (4.70-6.10) 10^6/uL Hgb 14.8 (14.0-18.0) g/dL Hct 44.7 (42.0-54.0) % MCV 88.5 (80.0-94.0) fL MCH 29.3 (25.9-34.0) pg MCHC 33.1 (29.9-35.2) g/dL RDW 14.3 (11.0-15.0) % Plt Count 306 (150-450) 10^3/uL MPV 10.7 (9.5-13.5) fL Neut % (Auto) 86.2 H (43.0-75.0) % Lymph % (Auto) 6.5 L (20.5-60.0) % [place] % (Auto) 6.8 (1.7-12.0) % Eos % (Auto) 0.0 L (0.9-7.0) % Baso % (Auto) 0.1 L (0.2-2.0) % Neut # (Auto) 17.6 H (1.4-6.5) 10^3/uL Lymph # (Auto) 1.3 (1.2-3.8) 10^3/uL [place] # (Auto) 1.4 H (0.3-0.8) 10^3/uL Eos # (Auto) 0.0 (0.0-0.7) 10^3/uL Baso # (Auto) 0.0 (0.0-0.1) 10^3/uL Abs Immat Gran (auto) 0.08 H (0.00-0.03) 10^3/uL Imm/Tot Granulo (auto) 0.4 (0.0-0.5) % Sodium 152 H (136-145) mmol/L Potassium 4.2 (3.5-5.1) mmol/L Chloride 111 H (98-107) mmol/L Carbon Dioxide 25.2 (21.0-32.0) mmol/L Anion Gap 20.0 BUN 28.0 H (7.0-18.0) mg/dL Creatinine 2.66 H (0.70-1.30) mg/dL Est GFR ( Amer) 34 L (>=60) Est GFR (Non-Af Amer) 28 L (>=60) BUN/Creatinine Ratio 10.5 Glucose 126 H (74-106) mg/dL Lactate 4.1 H* (0.4-2.0) mmol/L Calcium 9.5 (8.5-10.1) mg/dL Total Bilirubin 0.3 (0.2-1.0) mg/dL AST 39 H (15-37) U/L ALT 96 H (16-63) U/L Alkaline Phosphatase 100 (46-116) U/L Total Protein 7.8 (6.4-8.2) g/dL Albumin 4.4 (3.4-5.0) g/dL Globulin 3.4 g/dL Albumin/Globulin Ratio 1.3 Urine Color Yellow (YELLOW) Urine Clarity Clear (CLEAR) Urine pH 7.0 (5.0-9.0) Ur Specific [place] 1.020 (1.005-1.025) Urine Protein 100 A (NEG/TRACE) mg/dL Urine Glucose (UA) Negative (NEGATIVE) mg/dL Urine Ketones Negative (NEGATIVE) mg/dL Urine Occult Blood Small A (NEGATIVE) Urine Nitrite Negative (NEGATIVE) Urine Bilirubin Negative (NEGATIVE) Urine Urobilinogen 0.2 (0.2-1.0) EU/dL Ur Leukocyte Esterase Negative (NEGATIVE) Urine RBC 2-5 A (0-2) #/HPF Urine WBC 0-2 A (NONE SEEN) #/HPF Ur Squamous Epith Cells Rare (NONE/RARE) #/LPF Urine Crystals None seen (None Seen) #/HPF Urine Bacteria None seen (NONE SEEN) #/HPF Urine Casts None seen (NONE SEEN) #/LPF Urine Mucus Small A (NONE SEEN) Ur Culture Indicated? No Salicylates <2.8 (<=19.9) mg/dL Urine Opiates Screen Negative (NEGATIVE) Ur Buprenorphine Scrn Negative (NEGATIVE) Ur Oxycodone Screen Negative (NEGATIVE) Urine Methadone Screen Negative (NEGATIVE) Acetaminophen <2.0 L (10.0-30.0) ug/mL Ur Barbiturates Screen Negative (NEGATIVE) U Tricyclic Antidepress Negative (NEGATIVE) Ur Phencyclidine Scrn Negative (NEGATIVE) Ur Amphetamines Screen Negative (NEGATIVE) U Methamphetamines Scrn Negative (NEGATIVE) U Benzodiazepines Scrn Negative (NEGATIVE) Urine Cocaine Screen Negative (NEGATIVE) U Cannabinoids Screen Negative (NEGATIVE) Ethanol Quant <3 mg/dL ECG Data Attestation: I personally reviewed and interpreted this ECG as follows: Interpretation: EKG interpretation: Emergency Department physician interpretation. Normal sinus rhythm at 98bpm. Possible right atrial enlargement. long QTc at 507. no ST segment elevation or depression. Discharge Plan Discharge Chief Complaint: Altered Mental Status Clinical Impression: Acute kidney injury, Sepsis, Altered mental status, Acute hypernatremia Patient Disposition: Admitted as Observation Time of Disposition Decision: 00:10 Prescriptions / Home Meds: No Action gabapentin [Neurontin] 300 mg capsule 300 mg PO TID oxycodone-acetaminophen [Percocet] 5-325 mg tablet 2 tab PO Q6H PRN (Reason: pain (scale score 7-10)) Qty: 10 0RF oxycodone-acetaminophen [Percocet] 5-325 mg tablet 1 tab PO Q6H PRN (Reason: pain (scale score 4-6)) Qty: 10 0RF Rx Instructions: DX: M10.9; to be taken with regular (daily) Percocet for breakthrough pain for a maximum of 4 Percocet tabs (q6h PRN pain daily) tramadol 50 mg tablet 50 mg PO Q6H PRN (Reason: pain) quetiapine 50 mg tablet See Rx Instructions PO .hs Patient Comments: per pt. 50mg with 25mg Rx Instructions: 75 orally HS; colchicine 0.6 mg tablet 0.6 mg PO .every other clonidine HCl 0.1 mg tablet 0.1 mg PO BID celecoxib 100 mg capsule 100 mg PO DAILY PRN (Reason: RA flare) carvedilol 6.25 mg tablet 6.25 mg PO Q12H amlodipine 10 mg tablet 10 mg PO QDAY alprazolam 0.5 mg tablet 0.5 mg PO TID PRN (Reason: anxiety) allopurinol 300 mg tablet 600 mg PO DAILY cyclobenzaprine 10 mg tablet 10 mg PO TID PRN (Reason: muscle spasm) Print Language: French Referrals: LEYDI ACEVES [Primary Care Provider] - 1 week
[2023-06-03 00:44] LABS: PROCALCITONIN 0.53 ng/mL (0.00-0.50)
--- OUTSIDE RECORDS SUMMARY | 2023-06-03 00:54 | XMS_ITS | CCD ---
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 10*6/uL Normal [facility] Comment on above: Performed By: #### F LCRYS #### [facility] [address] [place] [address] Enterostomal Therapy Nurse: Krish Abdi MD Lab [address] [place] [address] Enterostomal Therapy Nurse: Drew Godoy MD #### FLDCT #### Lab [address] [place] [address] Enterostomal Therapy Nurse: Drew Godoy MD WBC (Bld) [#/Vol] 9.96 10*3/uL [facility] Comment on above: Performed By: #### F LCRYS #### [facility] [address] [place] [address] Enterostomal Therapy Nurse: Krish Abdi MD Lab [address] [place] [address] Enterostomal Therapy Nurse: Drew Godoy MD #### FLDCT #### Lab [address] [place] [address] Enterostomal Therapy Nurse: Drew Godoy MD [facility] () [facility] Comment on above: Performed By: #### F LCRYS #### [facility] [address] [place] [address] Enterostomal Therapy Nurse: Krish Abdi MD Lab [address] [place] [address] Enterostomal Therapy Nurse: Drew Godoy MD #### FLDCT #### [address] [place] [address] Enterostomal Therapy Nurse: Drew Godoy MD Color (U) Pale Yellow [facility] Comment on above: Performed By: #### F LCRYS #### [facility] [address] [place] [address] Enterostomal Therapy Nurse: Krish Abdi MD Lab [address] [place] [address] Enterostomal Therapy Nurse: Drew Godoy MD #### FLDCT #### [address] [place] [address] Enterostomal Therapy Nurse: Drew Godoy MD Type of Specimen .FLUID Normal [facility] Comment on above: Performed By: #### F LCRYS #### [facility] [address] [place] [address] Enterostomal Therapy Nurse: Krish Abdi MD Lab [address] [place] [address] Enterostomal Therapy Nurse: Drew Godoy MD #### FLDCT #### [address] [place] [address] Enterostomal Therapy Nurse: MD Cyn [facility]utiér[facility] ([id number]) 1990 M Date Time Provider Department 11/13/22 [...] refill of a tapered prednisone sent to [facility] in [place], . Please advise. Patient has been identified by name and birthdate. Duration of symptoms: N/A Person calling: self Call patient at: at home [phone] (home) [phone] (cell) Was an appointment scheduled: No Closing statement: Results or non-symptom based questions: Thank you for calling [facility], your call will be returned within the [...] Fully Assessed Reason for Visit: Patient Request [9701] Order(s):predniSONE (DELTASONE) 5 mg tabletTake 6 tab [...] Encounter Status:Closed by DELMY BOYLE [facility]13/[facility] Office Visit (ANA ) -- NICK WRAY ([id number]) 1990 M Date Time Provider Department 08/14/22 11:40 AM DELMY BOYLE During your visit today, we recorded the following information about you: Pulse Respiration Blood pressure Weight 94/minute 16/minute 132/93 99.8 kg Delmy Boyle MD 08/14/2022 5:15 PM Signed DX: chronic tophaceous gout, 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 Polyarthritis with several nodules mainly [...] arthritic flares once every 4 months. 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 Jaime in [place] who did diagnostic knee aspiration which according to patient was positive for uric acid crystals. Treated with steroids and continued allopurinol. He has not seen Dr. Jaime since 2014. In 2014, he was hospitalized in [place] for acute polyarthritis. Saw fighting vehicle systems maintainer while in hospital who told him that he possibly had RA. Discharged on steroids. His PCP switched him from allopurinol to Uloric Jan 2017. He also takes colchicine prn. No reduction in frequency or severity of his joint flares with Uloric. In 2016, he has been hospitalized 7-8 times for acute joint flares. Each time he is treated with steroids. Hospitalized at [facility] Apr 2017 for acute flare of [...] shoulder surgery by Dr. Tc Coffey at [facility]. No post op complications. Currently on PT - still working on shoulder ROM. 4. GENERAL HEALTH MAINTENANCE -continue follow up on his CKD with nephrology -he will follow up with his PCP for his general health issues RTC in 7 mon, sooner if needed INTERVAL HISTORY -at [facility], he was advised to increase allopurinol from 300 mg BID to 350 mg qam and 300 mg qpm but he is actually taking allopurinol 400 mg qam and 300 qpm instead. Tolerating this higher dose without issues. -He stopped drinking Nov 2021. He started drinking some since [facility]. -he had 2 flares of [...] 30 min (more content not included)... Normal [facility] ALT SerPl-cCncon 08-12-2022 ALT [Catalytic activity/Vol] 30 U/L Normal 10-54 [facility] Comment on above: Order Comment: Speci men Type: BLOOD SPECIMEN Ordering Facility: [facility] Address: [address] [place] [address] Performed By: #### 3 084-1 #### [facility] CLIA [id number] [address] [place], [place] [address] AST SerPl-cCncon 08-12-2022 AST [Catalytic activity/Vol] 28 U/L Normal 14-40 [facility] Comment on above: Order Comment: Speci men Type: BLOOD SPECIMEN Ordering Facility: [facility] Address: [address] [place] [address] Performed By: #### 3 084-1 #### [facility] CLIA [id number] [address] [place] [address] Albumin SerPl-mCncon 023 Albumin [Mass/Vol] 4.5 g/dL Normal 3.9-4.9 [facility] Comment on above: Order Comment: Speci men Type: BLOOD SPECIMEN Ordering Facility: [facility] Address: [address] [place] [address] Performed By: #### 3 084-1 #### [facility] CLIA [id number] [address] [place], [place] [address] CBC W Auto Differential pane l (Bld)on 08-12-2022 Basophils (Bld) [#/Vol] 0.00 10*3/uL Normal <0.11 [facility] Comment on above: Order Comment: Speci men Type: BLOOD SPECIMEN Ordering Facility: [facility] Address: [address] [place] [id number] Performed By: #### 5 7021-8 #### [facility] CLIA [id number] [address] [place] [address] [facility] CLIA [id number] [address] [facility] [id number] [address] [place] Basophils/100 WBC (Bld) 0.0 % Normal [facility] Comment on above: Order Comment: Speci men Type: BLOOD SPECIMEN Ordering Facility: [facility] Address: [address] [place] [address] Performed By: #### 5 7021-8 #### [facility] CLIA [id number] [address] [place] [address] LAB CLIA [id number] [address] [place] [address] [place] Differential cell count method Nom (Bld) Manual Normal [facility] Comment on above: Order Comment: Speci men Type: BLOOD SPECIMEN Ordering Facility: [facility] Address: [address] [place] [address] Performed By: #### 5 7021-8 #### [facility] CLIA [id number] [address] [place] [address] LAB CLIA [id number] [address] [place] [address] [place] Eosinophils (Bld) [#/Vol] 0.08 10*3/uL Normal <0.46 [facility] Comment on above: Order Comment: Speci men Type: BLOOD SPECIMEN Ordering Facility: [facility] Address: [address] [place] [address] Performed By: #### 5 7021-8 #### [facility] CLIA [id number] [address] [place] [address] LAB CLIA [id number] [address] [place] [address] [place] Eosinophils/100 WBC (Bld) 0.9 % Normal [facility] Comment on above: Order Comment: Speci men Type: BLOOD SPECIMEN Ordering Facility: [facility] Address: [address] [place] [address] Performed By: #### 5 7021-8 #### [facility] CLIA [id number] [address] [place] [address] [facility] CLIA [id number] [address] [place] [address] [place] Erythrocyte distribution width (RBC) [Ratio] 14.6 % Normal 11.5-15.0 [facility] Comment on above: Order Comment: Speci men Type: BLOOD SPECIMEN Ordering Facility: [facility] Address: [address] [place] [address] Performed By: #### 5 7021-8 #### [facility] CLIA [id number] [address] [place] [address] LAB CLIA [id number] [address] [place] [address] [place] Hematocrit (Bld) [Volume fraction] 45.7 % Normal 39.0-51.0 [facility] Comment on above: Order Comment: Speci men Type: BLOOD SPECIMEN Ordering Facility: [facility] Address: [address] [place] [address] Performed By: #### 5 7021-8 #### [facility] CLIA [id number] [address] [place] [address] LAB CLIA [id number] [address] [place] [address] [place] Hemoglobin (Bld) [Mass/Vol] 15.3 g/dL Normal 13.0-17.0 [facility] Comment on above: Order Comment: Speci men Type: BLOOD SPECIMEN Ordering Facility: [facility] Address: [address] [place] [address] Performed By: #### 5 7021-8 #### [facility] CLIA [id number] [address] [place] [address] LAB CLIA [id number] [address] [place] [address] [place] Lymphocytes (Bld) [#/Vol] 3.27 10*3/uL Normal 1.00-4.00 [facility] Comment on above: Order Comment: Speci men Type: BLOOD SPECIMEN Ordering Facility: [facility] Address: [address] [place] [address] Performed By: #### 5 7021-8 #### [facility] CLIA [id number] [address] [place] [address] LAB CLIA [id number] [address] [place] [address] [place] Lymphocytes/100 WBC (Bld) 37.7 % Normal [facility] Comment on above: Order Comment: Speci men Type: BLOOD SPECIMEN Ordering Facility: [facility] Address: [address] [place] [address] Performed By: #### 5 7021-8 #### [facility] CLIA [id number] [address] [place] [address] LAB CLIA [id number] [address] [place] [address] [place] MCH (RBC) [Entitic mass] 29.4 pg Normal 26.0-34.0 [facility] Comment on above: Order Comment: Speci men Type: BLOOD SPECIMEN Ordering Facility: [facility] Address: [address] [place] [address] Performed By: #### 5 7021-8 #### [facility] CLIA [id number] [address] [place] [address] LAB CLIA [id number] [address] [place] [address] [place] MCHC (RBC) [Mass/Vol] 33.5 g/dL Normal 30.5-36.0 [facility] Comment on above: Order Comment: Speci men Type: BLOOD SPECIMEN Ordering Facility: [facility] Address: [address] [place] [address] Performed By: #### 5 7021-8 #### [facility] CLIA [id number] [address] [place] [address] LAB CLIA [id number] [address] [place] [address] [place] MCV (RBC) [Entitic vol] 87.9 fL Normal 80.0-100.0 [facility] Comment on above: Order Comment: Speci men Type: BLOOD SPECIMEN Ordering Facility: [facility] Address: [address] [place] [address] Performed By: #### 5 7021-8 #### [facility] CLIA [id number] [address] [place] [address] LAB CLIA [id number] [address] [place] [address] [place] Monocytes (Bld) [#/Vol] 0.23 10*3/uL Normal <0.87 [facility] Comment on above: Order Comment: Speci men Type: BLOOD SPECIMEN Ordering Facility: [facility] Address: [address] [place] [address] Performed By: #### 5 7021-8 #### [facility] CLIA [id number] [address] [place] [address] LAB CLIA [id number] [address] [place] [address] [place] Monocytes/100 WBC (Bld) 2.6 % Normal [facility] Comment on above: Order Comment: Speci men Type: BLOOD SPECIMEN Ordering Facility: [facility] Address: [address] [place], [place] [address] Performed By: #### 5 7021-8 #### [facility] CLIA [id number] [address] [place] [address] LAB CLIA [id number] [address] [place] [address] [place] Neutrophils (Bld) [#/Vol] 5.10 10*3/uL Normal 1.45-7.50 [facility] Comment on above: Order Comment: Speci men Type: BLOOD SPECIMEN Ordering Facility: [facility] Address: [address] [place] [address] Performed By: #### 5 7021-8 #### [facility] CLIA [id number] [address] [place] [address] LAB CLIA [id number] [address] [place] [address] [place] Neutrophils/100 WBC (Bld) 58.8 % Normal [facility] Comment on above: Order Comment: Speci men Type: BLOOD SPECIMEN Ordering Facility: [facility] Address: [address] Performed By: #### 5 7021-8 #### [facility] CLIA [id number] [address] [place] [address] LAB CLIA [id number] [address] [place] [address] [place] Nucleated RBC (Bld) [#/Vol] 10*3/uL Normal <0.01 [facility] Comment on above: Order Comment: Speci men Type: BLOOD SPECIMEN Ordering Facility: [facility] Address: [address] [place] [address] Performed By: #### 5 7021-8 #### [facility] CLIA [id number] [address] [place] [address] LAB CLIA [id number] [address] [place] [address] [place] Nucleated RBC/100 WBC (Bld) [Ratio] 0.0 /100 WBC Normal [facility] Comment on above: Order Comment: Speci men Type: BLOOD SPECIMEN Ordering Facility: [facility] Address: [address] [place] [address] Performed By: #### 5 7021-8 #### [facility] CLIA [id number] [address] [place] [address] LAB CLIA [id number] [address] [place], [place] [address] [place] Platelet mean volume (Bld) [Entitic vol] 10.1 fL Normal 9.0-12.7 [facility] Comment on above: Order Comment: Speci men Type: BLOOD SPECIMEN Ordering Facility: [facility] Address: [address] [place], [place] [address] Performed By: #### 5 7021-8 #### [facility] CLIA [id number] [address] [place] [address] LAB CLIA [id number] [address] [place] [address] [place] Platelets (Bld) [#/Vol] 289 10*3/uL Normal 150-400 [facility] Comment on above: Order Comment: Speci men Type: BLOOD SPECIMEN Ordering Facility: [facility] Address: [address] [place], [place] [address] Performed By: #### 5 7021-8 #### [facility] CLIA [id number] [address] [place] [address] LAB CLIA [id number] [address] [place] [address] [place] Platelets Estimate (Bld) [#/Vol] Adequate Normal [facility] Comment on above: Order Comment: Speci men Type: BLOOD SPECIMEN Ordering Facility: [facility] Address: [address] [place], [place] [address] Performed By: #### 5 7021-8 #### [facility] CLIA [id number] [address] [place] [address] LAB CLIA [id number] [address] [place] [address] [place] RBC (Bld) [#/Vol] 5.20 10*6/uL Normal 4.20-6.00 [facility] Comment on above: Order Comment: Speci men Type: BLOOD SPECIMEN Ordering Facility: [facility] Address: [address] [place] [address] Performed By: #### 5 7021-8 #### [facility] CLIA [id number] [address] [place] [address] LAB CLIA [id number] [address] [place] [address] [place] RED CELL MORPH Reviewed: unremarkable Normal [facility] Comment on above: Order Comment: Speci men Type: BLOOD SPECIMEN Ordering Facility: [facility] Address: [address] Performed By: #### 5 7021-8 #### [facility] CLIA [id number] [address] [place] [address] LAB CLIA [id number] [address] [place] [address] [place] WBC (Bld) [#/Vol] 8.67 10*3/uL Normal 3.70-11.00 [facility] Comment on above: Order Comment: Speci men Type: BLOOD SPECIMEN Ordering Facility: [facility] Address: [address] Performed By: #### 5 7021-8 #### [facility] CLIA [id number] [address] [place] [address] LAB CLIA [id number] [address] [place] [address] [place] CREATININE BLDon 08-12-2022 Creatinine [Mass/Vol] 1.28 mg/dL High 0.73-1.22 [facility] Comment on above: Order Comment: Speci men Type: BLOOD SPECIMEN Ordering Facility: [facility] Address: [address] Performed By: #### C RET1 #### [facility] CLIA [id number] [address] [place] [address] ESTIMATED GLOMERULAR FILTRATION RATE 76 mL/min/1.73m??? Normal >=60 [facility] Comment on above: Order Comment: Yahaira mariee Type: BLOOD SPECIMEN Ordering Facility: [facility] Address: [address] [place] [phone] Result Comment: Jyoti mated Glomerular Filtration Rate [...] GFR. Performed By: #### C RET1 #### [facility] CLIA [id number] [address] [place] [address] CRP SerPl-mCncon 08-12-2022 CRP [Mass/Vol] mg/L Normal <0.9 [facility] Comment on above: Order Comment: Yahaira mariee Type: BLOOD SPECIMEN Ordering Facility: [facility] Address: [address] [place] [address] Performed By: #### 1 742-6, 1920-8, 1751-7, CRET1 #### [facility] CLIA [id number] [address] [place], [place] [address] ESR Westergren method (Bld) [Velocity]on 08-12-2022 ESR (Bld) [Velocity] 5 mm/h Normal 0-15 [facility] Comment on above: Order Comment: Yahaira mariee Type: BLOOD SPECIMEN Ordering Facility: [facility] Address: [address] [place], [place] [address] Performed By: #### 4 537-7 #### [facility] CLIA [id number] [address] [facility] [id number] [place] [address] [place] Urate SerPl-mCncon 3 Urate [Mass/Vol] 9.2 mg/dL High 4.0-8.1 [facility] Comment on above: Order Comment: Yahaira mariee Type: BLOOD SPECIMEN Ordering Facility: [facility] Address: [address] [place] [address] Performed By: #### 3 084-1 #### [facility] CLIA [id number] [address] [place] [address] CBC AUTO DIFFon 06-28-2022 BASO # 0.0 103/ul Normal 0.0-0.1 [facility] Comment on above: Performed By: #### C BC #### [facility] [address] [place] [address] Dr. Nilay Gibbs Basophils/100 WBC (Bld) 0.2 % Normal 0.2-2.0 [facility] Comment on above: Performed By: #### C BC #### [facility] [address] [place] [address] Dr. Nilay Gibbs EO # 0.0 103/ul Normal 0.0-0.7 [facility] Comment on above: Performed By: #### C BC #### [facility] [address] [place] [address] Dr. Nilay Gibbs Eosinophils/100 WBC (Bld) 0.3 % Critically low 0.9-7.0 [facility] Comment on above: Performed By: #### C BC #### [facility] [address] [place] [address] Dr. Nilay Gibbs Erythrocyte distribution width (RBC) [Ratio] 13.9 % Normal 11.0-15.0 [facility] Comment on above: Performed By: #### C BC #### [facility] [address] [place] [address] Dr. Nilay Gibbs Hematocrit (Bld) [Volume fraction] 39.8 % Critically low 42.0-54.0 [facility] Comment on above: Performed By: #### C BC #### [facility] [address] [place] [address] Dr. Nilay Gibbs Hemoglobin (Bld) [Mass/Vol] 13.2 g/dL Critically low 14.0-18.0 [facility] Comment on above: Performed By: #### C BC #### [facility] [address] [place] [address] Dr. Nilay Gibbs IG # 0.04 10e3/ul Critically high 0.00-0.03 [facility] Comment on above: Performed By: #### C BC #### [facility] [address] [place] [address] Dr. Nilay Gibbs IG % 0.4 % Normal 0.0-0.5 [facility] Comment on above: Performed By: #### C BC #### [facility] [address] [place] [address] Dr. Nilay Gibbs LYMPH # 1.8 103/ul Normal 1.2-3.8 [facility] Comment on above: Performed By: #### C BC #### [facility] [address] [place] [address] Dr. Nilay Gibbs Lymphocytes/100 WBC (Bld) 17.5 % Critically low 20.5-60.0 [facility] Comment on above: Performed By: #### C BC #### [facility] [address] [place] [address] Dr. Nilay Gibbs MANUAL DIFF REQ NO Normal [facility] Comment on above: Performed By: #### C BC #### [facility] [address] [place] [address] Dr. Nilay Gibbs MCH (RBC) [Entitic mass] 29.3 pg Normal 25.9-34.0 [facility] Comment on above: Performed By: #### C BC #### [facility] [address] [place] [address] Dr. Nilay Gibbs MCHC (RBC) [Mass/Vol] 33.2 g/dL Normal 29.9-35.2 [facility] Comment on above: Performed By: #### C BC #### [facility] [address] [place] [address] Dr. Nilay Gibbs MCV (RBC) [Entitic vol] 88.4 fL Normal 80.0-94.0 [facility] Comment on above: Performed By: #### C BC #### [facility] [address] [place] [address] Dr. Nilay Gibbs MONO # 0.9 103/ul Critically high 0.3-0.8 [facility] Comment on above: Performed By: #### C BC #### [facility] [address] [address] [address] Nilay Gibbs Monocytes/100 WBC (Bld) 9.4 % Normal 1.7-12.0 [facility] Comment on above: Performed By: #### C BC #### [facility] [address] [address] [address] Nilay Gibbs NEUT # 7.2 103/ul Critically high 1.4-6.5 [facility] Comment on above: Performed By: #### C BC #### [facility] [address] [address] [address] Nilay Gibbs Neutrophils/100 WBC (Bld) 72.2 % Normal 43.0-75.0 [facility] Comment on above: Performed By: #### C BC #### [facility] [address] [place] [address] Dr. Nilay Gibbs Platelet mean volume (Bld) [Entitic vol] 9.6 fL Normal 9.5-13.5 [facility] Comment on above: Performed By: #### C BC #### [facility] [address] [place] [address] Dr. Nilay Gibbs PLT 356 103/ul Normal 150-450 [facility] Comment on above: Performed By: #### C BC #### [facility] [address] [place] [address] Dr. Nilay Gibbs RBC 4.50 106/ul Critically low 4.70-6.10 [facility] Comment on above: Performed By: #### C BC #### [facility] [address] [place] [address] Dr. Nilay Gibbs WBC 10.0 103/ul Normal 4.0-11.0 [facility] Comment on above: Performed By: #### C BC #### [facility] [address] [place] [address] Dr. Nilay Gibbs PROF CHEM 8 (BAS METB)on Anion gap [Moles/Vol] 12.4 mmol/L Normal [facility] Comment on above: Performed By: #### A MM #### [facility] [address] [address] [address] Nilay Gibbs Calcium [Mass/Vol] 9.4 mg/dL Normal 8.5-10.1 [facility] Comment on above: Performed By: #### A MM #### [facility] [address] [address] [address] Nilay Gibbs Chloride [Moles/Vol] 105 mmol/L Normal 98-107 [facility] Comment on above: Performed By: #### A MM #### [facility] [address] [address] [address] Nilay Gibbs CO2 [Moles/Vol] 25.6 mmol/L Normal 21.0-32.0 [facility] Comment on above: Performed By: #### A MM #### [facility] [address] [address] [address] Nilay Gibbs Creatinine [Mass/Vol] 1.18 mg/dL Normal 0.70-1.30 [facility] Comment on above: Performed By: #### A MM #### [facility] [address] [address] [address] Nilay Gibbs EGFR-AF UZBEK >60 Normal >=60 [facility] Comment on above: Performed By: #### A MM #### [facility] [address] [address] [address] Nilay Gibbs EGFR-NON AF UZBEK >60 Normal >=60 [facility] Comment on above: Performed By: #### A MM #### [facility] [address] [address] [address] Nilay Gibbs Glucose [Mass/Vol] 125 mg/dL Critically high 74-106 [facility] Comment on above: Performed By: #### A MM #### [facility] [address] [place] [address] Dr. Nilay Gibbs Potassium [Moles/Vol] 4.3 mmol/L Normal 3.5-5.1 [facility] Comment on above: Performed By: #### A MM #### [facility] [address] [place] [address] Dr. Nilay Gibbs Sodium [Moles/Vol] 139 mmol/L Normal 136-145 [facility] Comment on above: Performed By: #### A MM #### [facility] [address] [place] [address] Dr. Nilay Gibbs Urea nitrogen [Mass/Vol] 15.0 mg/dL Normal 7.0-18.0 [facility] Comment on above: Performed By: #### A MM #### [facility] [address] [place] [address] Dr. Nilay Gibbs Urea nitrogen/Creatinine [Mass ratio] 12.7 mg/mg Normal [facility] Comment on above: Performed By: #### A MM #### [facility] [address] [place] [address] Dr. Nilay Gibbs CBC AUTO DIFFon 06-20-2022 BASO # 0.0 103/ul Normal 0.0-0.1 [facility] Comment on above: Performed By: #### A MM #### [facility] [address] [place] [address] Dr. Nilay Gibbs Basophils/100 WBC (Bld) 0.2 % Normal 0.2-2.0 [facility] Comment on above: Performed By: #### A MM #### [facility] [address] [place] [address] Dr. Nilay Gibbs EO # 0.0 103/ul Normal 0.0-0.7 [facility] Comment on above: Performed By: #### A MM #### [facility] [address] [place] [address] Dr. Nilay Gibbs Eosinophils/100 WBC (Bld) 0.3 % Critically low 0.9-7.0 [facility] Comment on above: Performed By: #### A MM #### [facility] [address] [place] [address] Dr. Nilay Gibbs Erythrocyte distribution width (RBC) [Ratio] 14.3 % Normal 11.0-15.0 [facility] Comment on above: Performed By: #### A MM #### [facility] [address] [place] [address] Dr. Nilay Gibbs Hematocrit (Bld) [Volume fraction] 39.3 % Critically low 42.0-54.0 [facility] Comment on above: Performed By: #### A MM #### [facility] [address] [place] [address] Dr. Nilay Gibbs Hemoglobin (Bld) [Mass/Vol] 13.1 g/dL Critically low 14.0-18.0 [facility] Comment on above: Performed By: #### A MM #### [facility] [address] [place] [address] Dr. Nilay Gibbs IG # 0.03 10e3/ul Normal 0.00-0.03 [facility] Comment on above: Performed By: #### A MM #### [facility] [address] [place] [address] Dr. Nilay Gibbs IG % 0.3 % Normal 0.0-0.5 [facility] Comment on above: Performed By: #### A MM #### [facility] [address] [place] [address] Dr. Nilay Gibbs LYMPH # 1.7 103/ul Normal 1.2-3.8 [facility] Comment on above: Performed By: #### A MM #### [facility] [address] [place] [address] Dr. Nilay Gibbs Lymphocytes/100 WBC (Bld) 14.5 % Critically low 20.5-60.0 [facility] Comment on above: Performed By: #### A MM #### [facility] [address] [place] [address] Dr. Nilay Gibbs MANUAL DIFF REQ NO Normal [facility] Comment on above: Performed By: #### A MM #### [facility] [address] [place] [address] Dr. Nilay Gibbs MCH (RBC) [Entitic mass] 29.2 pg Normal 25.9-34.0 [facility] Comment on above: Performed By: #### A MM #### [facility] [address] [place] [address] Dr. Nilay Gibbs MCHC (RBC) [Mass/Vol] 33.3 g/dL Normal 29.9-35.2 [facility] Comment on above: Performed By: #### A MM #### [facility] [address] [address] [address] Nilay Gibbs MCV (RBC) [Entitic vol] 87.5 fL Normal 80.0-94.0 [facility] Comment on above: Performed By: #### A MM #### [facility] [address] [place] [address] Dr. Nilay Gibbs MONO # 1.3 103/ul Critically high 0.3-0.8 [facility] Comment on above: Performed By: #### A MM #### [facility] [address] [place] [address] Dr. Nilay Gibbs Monocytes/100 WBC (Bld) 10.9 % Normal 1.7-12.0 [facility] Comment on above: Performed By: #### A MM #### [facility] [address] [place] [address] Dr. Nilay Gibbs NEUT # 8.7 103/ul Critically high 1.4-6.5 [facility] Comment on above: Performed By: #### A MM #### [facility] [address] [place] [address] Dr. Nilay Gibbs Neutrophils/100 WBC (Bld) 73.8 % Normal 43.0-75.0 [facility] Comment on above: Performed By: #### A MM #### [facility] [address] [place] [address] Dr. Nilay Gibbs Platelet mean volume (Bld) [Entitic vol] 10.9 fL Normal 9.5-13.5 [facility] Comment on above: Performed By: #### A MM #### [facility] [address] [place] [address] Dr. Nilay Gibbs PLT 171 103/ul Normal 150-450 [facility] Comment on above: Performed By: #### A MM #### [facility] [address] [place] [address] Dr. Nilay Gibbs RBC 4.49 106/ul Critically low 4.70-6.10 [facility] Comment on above: Performed By: #### A MM #### [facility] [address] [place] [address] Dr. Nilay Gibbs WBC 11.7 103/ul Critically high 4.0-11.0 [facility] Comment on above: Performed By: #### A MM #### [facility] [address] [place] [address] Dr. Nilay Gibbs CRPon 06-20-2022 CRP 25.4 mg/dL Critically high <=1.0 [facility] Comment on above: Performed By: #### C RP, CMP #### [facility] [address] [place] [address] Dr. Nilay Gibbs CULTURE BLOODon 06-20-2022 Microscopic examination of blood, culture Culture Observations: NO GROWTH AT 5 DAYS. Normal [facility] Comment on above: Performed By: #### C MP #### [facility] [address] [place] [address] Dr. Nilay Gibbs Microscopic examination of blood, culture Culture Observations: NO GROWTH AT 5 DAYS. Normal [facility] Comment on above: Performed By: #### C MP #### [facility] [address] [place] [address] Dr. Nilay Gibbs LACTATE/LACTIC ACIDon 2022 Lactate [Moles/Vol] 0.7 mmol/L Normal 0.4-2.0 [facility] Comment on above: Performed By: #### A MM #### [facility] [address] [place] [address] Dr. Nilay Gibbs PROF 14(COMP METB)on 023 Albumin [Mass/Vol] 3.8 g/dL Normal 3.4-5.0 [facility] Comment on above: Performed By: #### C RP, CMP #### [facility] [address] [place] [address] Dr. Nilay Gibbs Albumin/Globulin [Mass ratio] 1.1 {ratio} Normal [facility] Comment on above: Performed By: #### C RP, CMP #### [facility] [address] [address] [address] Nilay Gibbs ALP [Catalytic activity/Vol] 85 U/L Normal 46-116 [facility] Comment on above: Performed By: #### C RP, CMP #### [facility] [address] [address] [address] Nilay Gibbs ALT [Catalytic activity/Vol] 29 U/L Normal 16-63 [facility] Comment on above: Performed By: #### C RP, CMP #### [facility] [address] [address] [address] Nilay Gibbs Anion gap [Moles/Vol] 15.2 mmol/L Normal [facility] Comment on above: Performed By: #### C RP, CMP #### [facility] [address] [place] [address] Dr. Nilay Gibbs AST [Catalytic activity/Vol] 20 U/L Normal 15-37 [facility] Comment on above: Performed By: #### C RP, CMP #### [facility] [address] [place] [address] Dr. Nilay Gibbs Bilirubin [Mass/Vol] 1.1 mg/dL Critically high 0.2-1.0 [facility] Comment on above: Performed By: #### C RP, CMP #### [facility] [address] [place] [address] Dr. Nilay Gibbs Calcium [Mass/Vol] 9.4 mg/dL Normal 8.5-10.1 [facility] Comment on above: Performed By: #### C RP, CMP #### [facility] [address] [place] [address] Dr. Nilay Gibbs Chloride [Moles/Vol] 99 mmol/L Normal 98-107 [facility] Comment on above: Performed By: #### C RP, CMP #### [facility] [address] [address] [address] Nilay Gibbs CO2 [Moles/Vol] 25.7 mmol/L Normal 21.0-32.0 [facility] Comment on above: Performed By: #### C RP, CMP #### [facility] [address] [address] [address] Nilay Gibbs Creatinine [Mass/Vol] 1.32 mg/dL Critically high 0.70-1.30 [facility] Comment on above: Performed By: #### C RP, CMP #### [facility] [address] [address] [address] Nilay Gibbs EGFR-AF UZBEK >60 Normal >=60 [facility] Comment on above: Performed By: #### C RP, CMP #### [facility] [address] [address] [address] Nilay Gibbs EGFR-NON AF UZBEK >60 Normal >=60 [facility] Comment on above: Performed By: #### C RP, CMP #### [facility] [address] [place] [address] Dr. Nilay Gibbs Globulin (S) [Mass/Vol] 3.6 g/dL Normal [facility] Comment on above: Performed By: #### C RP, CMP #### [facility] [address] [place] [address] Dr. Nilay Gibbs Glucose [Mass/Vol] 106 mg/dL Normal 74-106 [facility] Comment on above: Performed By: #### C RP, CMP #### [facility] [address] [place] [address] Dr. Nilay Gibbs Potassium [Moles/Vol] 3.9 mmol/L Normal 3.5-5.1 [facility] Comment on above: Performed By: #### C RP, CMP #### [facility] [address] [place] [address] Dr. Nilay Gibbs Protein [Mass/Vol] 7.4 g/dL Normal 6.4-8.2 [facility] Comment on above: Performed By: #### C RP, CMP #### [facility] [address] [place] [address] Dr. Nilay Gibbs Sodium [Moles/Vol] 136 mmol/L Normal 136-145 [facility] Comment on above: Performed By: #### C RP, CMP #### [facility] [address] [address] [address] Nilay Gibbs Urea nitrogen [Mass/Vol] 10.0 mg/dL Normal 7.0-18.0 [facility] Comment on above: Performed By: #### C RP, CMP #### [facility] [address] [address] [address] Nilay Gibbs Urea nitrogen/Creatinine [Mass ratio] 7.6 mg/mg Normal [facility] Comment on above: Performed By: #### C RP, CMP #### [facility] [address] [address] [address] Nilay Gibbs [facility] SED [facility]ATE 46 mm/hr Critically high <=15 [facility] Comment on above: Performed By: #### S EDR #### [facility] [address] [place] [address] Dr. Nilay Gibbs Covid-19 PCR ([facility])on SARS-CoV-2 (COVID-19) RNA TALHA+probe Ql (Unsp spec) Not detected Normal NOT DETECTED [facility] Comment on above: Result Comment: [...] for this test is supported by the Photographic Spotter of Health and Human Service's declaration that [...] used). Performed By: #### A MM #### [facility] [address] [place] [address] Dr. Nliay Gibbs INFLUENZA A AND B AGon 01-31 [facility] SEE BELOW Normal [facility] Comment on above: Result Comment: Nega tive for Flu A protein angiten. Infection due to Flu A cannot be ruled out. Flu A angiten in the sample may be below the detection limit of the test. Performed By: #### A MM #### [facility] [address] [address] [address] Nilay [facility] Normal [facility] Comment on above: Result Comment: Nega tive for Flu B protein antigen. Infection due to Flu B cannot be ruled out. Flu B antigen in the sample may be below the detection limit of the test. Performed By: #### A MM #### [facility] [address] [address] [address] Nilay Gibbs INFLUENZA A AG Negative Normal NEGATIVE SEE COMMENT [facility] Comment on above: Performed By: #### A MM #### [facility] [address] [address] [address] Nilay Gibbs INFLUENZA B AG Negative Normal NEGATIVE SEE COMMENT [facility] Comment on above: Performed By: #### A MM #### [facility] [address] [address] [address] Nilay Gibbs INTERNAL CONTROLS Within Normal Limits Normal Wi thin Normal Limits [facility] Comment on above: Performed By: #### A MM #### [facility] [address] [address] [address] Nilay Gibbs Cholesterol [Mass/volume] in Serum or PlasmaOrdered By: Adam Young on 12-08-2021 Cholesterol [Mass/Vol] 205 mg/dL 140-200 [facility] Comment on above: Chol less than 200 m g/dl low riskChol 201-239 mg/dl borderline riskChol 240 mg/dl and greater high risk Cholesterol in LDL Calc [Mas s/Vol]Ordered By: Adam Young on 12-08-2021 Cholesterol in LDL [Mass/Vol] 120 mg/dL 0-100 [facility] Comment on above: LDL ATP III CLASSIFI CATIONLDL less than 100 mg/dL OptimalLDL 100-129 mg/dL Near or above optimalLDL 130-159 mg/dL Borderline highLDL 160-189 mg/dL HighLDL greater than 189 mg/dL Very high Cholesterol in VLDL Calc [Ma ss/Vol]Ordered By: Adam Young on 12-08-2021 Cholesterol in VLDL [Mass/Vol] 37 mg/dL [facility] No Panel InformationOrdered By: Adam Young on 12-08-2021 25-Hydroxy Vitamin D Total 50.6 ng/mL 30-100 [facility] Comment on above: VITAMIN D STATUS [...] Cholesterol in HDL [Mass/Vol] 47 mg/dL 29-71 [facility] Comment on above: HDL CHOL ATP-III CLA SSIFICATION Cardiovascular RiskHDL > or equal to 60 mg/dL LOWHDL < 40 mg/dL HIGH Serum or plasma total choles terol/high density lipoprotein (HDL) cholesterol mass ratOrdered By: Adam Young on 12-08-2021 Cholesterol.total/Ch olesterol in HDL [Mass ratio] 4.4 {ratio} <5.0 [facility] TSH DL <= 0.005 mIU/L QnOrde red By: Adam Young on 12-08-2021 TSH Qn 0.75 m[IU]/L 0.45-5.33 [facility] Triglyceride [Mass/volume] i n Serum or PlasmaOrdered By: Adam Young on 12-08-2021 Triglyceride [Mass/Vol] 188 mg/dL 35-149 [facility] Comment on above: TRIG ATP III CLASSIF ICATIONTRIG less than 150 mg/dL NormalTRIG 150-199 mg/dL Borderline highTRIG 200-500 mg/dL High TRIG greater than 500 mg/dL Very highStandard traceable to the Center for Disease Conrtrol and Prevention (CDC) test method. Covid-19 PCR ([facility])on SARS-CoV-2 (COVID-19) RNA TALHA+probe Ql (Unsp spec) Not detected Normal NOT DETECTED [facility] Comment on above: Result Comment: [...] for this test is supported by the Photographic Spotter of Health and Human Service's declaration that [...] used). Performed By: #### C MP #### [facility] [address] [place] [address] Dr. Nilay Gibbs ETHANOL (BLD ALC)on 12-08-19 Ethanol [Mass/Vol] 288 mg/dL Normal [facility] Comment on above: Performed By: #### C MP #### [facility] [address] [place] [address] Dr. Nilay Gibbs ALC NOTE NOTE: 80 mg/dl is th e legal limit for a blood alcohol level Normal [facility] Comment on above: Performed By: #### C MP #### [facility] [address] [place] [address] Dr. Nilay Gibbs Performed By: #### A MM #### [facility] [address] [place] [address] Dr. Nilay Gibbs Ethanol [Mass/Vol] 130 mg/dL Normal [facility] Comment on above: Performed By: #### A MM #### [facility] [address] [place] [address] Dr. Nilay Gibbs Ethanol [Mass/Vol] 196 mg/dL Normal [facility] Comment on above: Performed By: #### A MM #### [facility] [address] [place] [address] Dr. Nilay Gibbs ACETAMINOPHENon 12-06-2021 Acetaminophen [Mass/Vol] ug/mL Critically low 10.0-30.0 [facility] Comment on above: Performed By: #### A CET #### [facility] [address] [place] [address] Dr. Nilay Gibbs AMMONIAon 12-06-2021 Ammonia (P) [Moles/Vol] 22 umol/L Normal 11-32 [facility] Comment on above: Performed By: #### A MM #### [facility] [address] [place] [address] Dr. Nilay Gibbs CBC AUTO DIFFon 12-06-2021 BASO # 0.0 103/ul Normal 0.0-0.1 [facility] Comment on above: Performed By: #### A MM #### [facility] [address] [place] [address] Dr. Nilay Gibbs Basophils/100 WBC (Bld) 0.5 % Normal 0.2-2.0 [facility] Comment on above: Performed By: #### A MM #### [facility] [address] [place] [address] Dr. Nilay Gibbs EO # 0.1 103/ul Normal 0.0-0.7 [facility] Comment on above: Performed By: #### A MM #### [facility] [address] [place] [address] Dr. Nilay Gibbs Eosinophils/100 WBC (Bld) 1.0 % Normal 0.9-7.0 [facility] Comment on above: Performed By: #### A MM #### [facility] [address] [place] [address] Dr. Nilay Gibbs Erythrocyte distribution width (RBC) [Ratio] 12.9 % Normal 11.0-15.0 [facility] Comment on above: Performed By: #### A MM #### [facility] [address] [place] [address] Dr. Nilay Gibbs Hematocrit (Bld) [Volume fraction] 40.5 % Critically low 42.0-54.0 [facility] Comment on above: Performed By: #### A MM #### [facility] [address] [place] [address] Dr. Nilay Gibbs Hemoglobin (Bld) [Mass/Vol] 13.9 g/dL Critically low 14.0-18.0 [facility] Comment on above: Performed By: #### A MM #### [facility] [address] [place] [address] Dr. Nilay Gibbs IG # 0.02 10e3/ul Normal 0.00-0.03 [facility] Comment on above: Performed By: #### A MM #### [facility] [address] [place] [address] Dr. Nilay Gibbs IG % 0.3 % Normal 0.0-0.5 [facility] Comment on above: Performed By: #### A MM #### [facility] [address] [place] [address] Dr. Nilay Gibbs LYMPH # 2.7 103/ul Normal 1.2-3.8 [facility] Comment on above: Performed By: #### A MM #### [facility] [address] [place] [address] Dr. Nilay Gibbs Lymphocytes/100 WBC (Bld) 45.2 % Normal 20.5-60.0 [facility] Comment on above: Performed By: #### A MM #### [facility] [address] [place] [address] Dr. Nilay Gibbs MANUAL DIFF REQ NO Normal [facility] Comment on above: Performed By: #### A MM #### [facility] [address] [place] [address] Dr. Nilay Gibbs MCH (RBC) [Entitic mass] 29.8 pg Normal 25.9-34.0 [facility] Comment on above: Performed By: #### A MM #### [facility] [address] [place] [address] Dr. Nilay Gibbs MCHC (RBC) [Mass/Vol] 34.3 g/dL Normal 29.9-35.2 [facility] Comment on above: Performed By: #### A MM #### [facility] [address] [place] [address] Dr. Nilay Gibbs MCV (RBC) [Entitic vol] 86.9 fL Normal 80.0-94.0 [facility] Comment on above: Performed By: #### A MM #### [facility] [address] [place] [address] Dr. Nilay Gibbs MONO # 0.4 103/ul Normal 0.3-0.8 [facility] Comment on above: Performed By: #### A MM #### [facility] [address] [place] [address] Dr. Nilay Gibbs Monocytes/100 WBC (Bld) 6.3 % Normal 1.7-12.0 [facility] Comment on above: Performed By: #### A MM #### [facility] [address] [place] [address] Dr. Nilay Gibbs NEUT # 2.7 103/ul Normal 1.4-6.5 [facility] Comment on above: Performed By: #### A MM #### [facility] [address] [place] [address] Dr. Nilay Gibbs Neutrophils/100 WBC (Bld) 46.7 % Normal 43.0-75.0 [facility] Comment on above: Performed By: #### A MM #### [facility] [address] [place] [address] Dr. Nilay Gibbs Platelet mean volume (Bld) [Entitic vol] 10.4 fL Normal 9.5-13.5 [facility] Comment on above: Performed By: #### A MM #### [facility] [address] [place] [address] Dr. Nilay Gibbs PLT 237 103/ul Normal 150-450 [facility] Comment on above: Performed By: #### A MM #### [facility] [address] [place] [address] Dr. Nilay Gibbs RBC 4.66 106/ul Critically low 4.70-6.10 [facility] Comment on above: Performed By: #### A MM #### [facility] [address] [place] [address] Dr. Nilay Gibbs WBC 5.9 103/ul Normal 4.0-11.0 [facility] Comment on above: Performed By: #### A MM #### [facility] [address] [place] [address] Dr. Nilay Gibbs DRUG SCREEN RAPID (URINE)on 12-06-2021 AMP Negative Normal NEGATIVE [facility] Comment on above: Performed By: #### D RUGRPD #### [facility] [address] [place] [address] Dr. Nilay Gibbs BAR Negative Normal NEGATIVE [facility] Comment on above: Performed By: #### D RUGRPD #### [facility] [address] [place] [address] Dr. Nilay Gibbs BUP Negative Normal NEGATIVE [facility] Comment on above: Performed By: #### D RUGRPD #### [facility] [address] [place] [address] Dr. Nilay Gibbs BZO Positive Abnormal NEGATIVE [facility] Comment on above: Performed By: #### D RUGRPD #### [facility] [address] [place] [address] Dr. Nilay Gibbs ROQUE Negative Normal NEGATIVE [facility] Comment on above: Performed By: #### D RUGRPD #### [facility] [address] [place] [address] Dr. Nilay Gibbs CUT-OFFS SEE BELOW Normal [facility] Comment on above: Result Comment: [...] ng/mL Performed By: #### D RUGRPD #### [facility] [address] [place] [address] Dr. Nilay Gibbs DRUG CUT HEADER DRUG CLASS TEST SYST EM CUT-OFF CONCENTRATIONS ARE FOLLOWS: Normal [facility] Comment on above: Performed By: #### D RUGRPD #### [facility] [address] [address] [address] Nilay Gibsb mAMP Negative Normal NEGATIVE [facility] Comment on above: Performed By: #### D RUGRPD #### [facility] [address] [place] [address] Dr. Nilay Gibbs MTD Negative Normal NEGATIVE [facility] Comment on above: Performed By: #### D RUGRPD #### [facility] [address] [place] [address] Dr. Nilay Gibbs OPI Negative Normal NEGATIVE [facility] Comment on above: Performed By: #### D RUGRPD #### [facility] [address] [place] [address] Dr. Nilay Gibbs OXY Negative Normal NEGATIVE [facility] Comment on above: Performed By: #### D RUGRPD #### [facility] [address] [place] [address] Dr. Nilay Gibbs PCP Negative Normal NEGATIVE [facility] Comment on above: Performed By: #### D RUGRPD #### [facility] [address] [place] [address] Dr. Nilay Gibbs PPX Negative Normal NEGATIVE [facility] Comment on above: Performed By: #### D RUGRPD #### [facility] [address] [place] [address] Dr. Nilay Gibbs TCA Negative Normal NEGATIVE [facility] Comment on above: Performed By: #### D RUGRPD #### [facility] [address] [place] [address] Dr. Nilay Gibbs THC Negative Normal NEGATIVE [facility] Comment on above: Performed By: #### D RUGRPD #### [facility] [address] [place] [address] Dr. Nilay Gibbs ETHANOL (BLD ALC)on 12-07-19 22 ALC NOTE NOTE: 80 mg/dl is th e legal limit for a blood alcohol level Normal [facility] Comment on above: Performed By: #### C MP #### [facility] [address] [place] [address] Dr. Nilay Gibbs Ethanol [Mass/Vol] 336 mg/dL Normal [facility] Comment on above: Performed By: #### C MP #### [facility] [address] [place] [address] Dr. Nilay Gibbs PROF 14(COMP METB)on 022 Albumin [Mass/Vol] 4.2 g/dL Normal 3.4-5.0 [facility] Comment on above: Performed By: #### C MP #### [facility] [address] [place] [address] Dr. Nilay Gibbs Albumin/Globulin [Mass ratio] 1.3 {ratio} Normal [facility] Comment on above: Performed By: #### C MP #### [facility] [address] [place] [address] Dr. Nilay Gibbs ALP [Catalytic activity/Vol] 104 U/L Normal 46-116 [facility] Comment on above: Performed By: #### C MP #### [facility] [address] [place] [address] Dr. Nilay Gibbs ALT [Catalytic activity/Vol] 41 U/L Normal 16-63 [facility] Comment on above: Performed By: #### C MP #### [facility] [address] [place] [address] Dr. Nilay Gibbs Anion gap [Moles/Vol] 11.5 mmol/L Normal [facility] Comment on above: Performed By: #### C MP #### [facility] [address] [place] [address] Dr. Nilay Gibbs AST [Catalytic activity/Vol] 37 U/L Normal 15-37 [facility] Comment on above: Performed By: #### C MP #### [facility] [address] [address] [address] Nilay Gibbs Bilirubin [Mass/Vol] 0.2 mg/dL Normal 0.2-1.0 [facility] Comment on above: Performed By: #### C MP #### [facility] [address] [address] [address] Nilay Gibbs Calcium [Mass/Vol] 8.6 mg/dL Normal 8.5-10.1 [facility] Comment on above: Performed By: #### C MP #### [facility] [address] [address] [address] Nilay Gibbs Chloride [Moles/Vol] 97 mmol/L Critically low 98-107 [facility] Comment on above: Performed By: #### C MP #### [facility] [address] [address] [address] Nilay Gibbs CO2 [Moles/Vol] 26.0 mmol/L Normal 21.0-32.0 [facility] Comment on above: Performed By: #### C MP #### [facility] [address] [address] [address] Nilay Gibbs Creatinine [Mass/Vol] 1.47 mg/dL Critically high 0.70-1.30 [facility] Comment on above: Performed By: #### C MP #### [facility] [address] [place] [address] Dr. Nilay Gibbs EGFR-AF UZBEK >60 Normal >=60 [facility] Comment on above: Performed By: #### C MP #### [facility] [address] [address] [address] Nilay Gibbs EGFR-NON AF UZBEK 56 mL/min/1.73m2 Critically low >=60 [facility] Comment on above: Performed By: #### C MP #### [facility] [address] [address] [address] Nilay Gibbs Globulin (S) [Mass/Vol] 3.2 g/dL Normal [facility] Comment on above: Performed By: #### C MP #### [facility] [address] [address] [address] Nilay Gibbs Glucose [Mass/Vol] 117 mg/dL Critically high 74-106 [facility] Comment on above: Performed By: #### C MP #### [facility] [address] [address] [address] Nilay Gibbs Potassium [Moles/Vol] 3.5 mmol/L Normal 3.5-5.1 [facility] Comment on above: Performed By: #### C MP #### [facility] [address] [address] [address] Nilay Gibbs Protein [Mass/Vol] 7.4 g/dL Normal 6.4-8.2 [facility] Comment on above: Performed By: #### C MP #### [facility] [address] [place] [address] Dr. Nilay Gibbs Sodium [Moles/Vol] 131 mmol/L Critically low 136-[address] [facility] Comment on above: Performed By: #### C MP #### [facility] [address] [place] [address] Dr. Nilay Gibbs Urea nitrogen [Mass/Vol] 14.0 mg/dL Normal 7.0-18.0 [facility] Comment on above: Performed By: #### C MP #### [facility] [address] [place] [address] Dr. Nilay Gibbs Urea nitrogen/Creatinine [Mass ratio] 9.5 mg/mg Normal [facility] Comment on above: Performed By: #### C MP #### [facility] [address] [place] [address] Dr. Nilay Gibbs SALICYLATEon 12-06-2021 SALICYLATE <2.8 Normal <=19.9 [facility] Comment on above: Performed By: #### A MM #### [facility] [address] [place] [address] Dr. Nilay Gibbs MRI Shoulder w/o Lefton [...] by Stephen Ware on 11/11/2021 0955 Normal [facility] Specialist Activated partial thrombopla stin time (aPTT) in platelet poor plasma by coagulation aOrdered By: Kristal Goldberg on 09-27-2021 aPTT Coag (PPP) [Time] 34.7 s 25.1-36.5 [facility] Albumin [Mass/volume] in Ser um or PlasmaOrdered By: Kristal Goldberg on 09-27-2021 Albumin [Mass/Vol] 4.1 g/dL 3.2-5.5 [facility] Basophils Auto (Bld) [#/Vol] Ordered By: Kristal Goldberg on 09-27-2021 Basophils (Bld) [#/Vol] 0.0 10*3/uL 0.0-0.2 [facility] Basophils/100 WBC Auto (Bld) Ordered By: Kristal Goldberg on 09-27-2021 Basophils/100 WBC (Bld) 0.3 % . [facility] Bilirubin Auto test strip Ql (U)Ordered By: Kristal Goldberg on 09-27-2021 Bilirubin Ql (U) Negative Negative [facility] Blood hemoglobin measurement (mass/volume)Ordered By: Kristal Goldberg on 09-27-2021 Hemoglobin (Bld) [Mass/Vol] 13.6 g/dL 13.0-17.0 [facility] Blood leukocytes automated c ount (number/volume)Ordered By: Kristal Goldberg on 09-27-2021 WBC (Bld) [#/Vol] 5.7 10*3/uL 4.5-11.0 [facility] CBC AUTO DIFFon 09-27-2021 BASO # 0.0 103/ul Normal 0.0-0.1 [facility] Comment on above: Performed By: #### A MM #### [facility] [address] [address] [address] Nilay Gibbs Basophils/100 WBC (Bld) 0.5 % Normal 0.2-2.0 [facility] Comment on above: Performed By: #### A MM #### [facility] [address] [address] [address] Nilay Gibbs EO # 0.1 103/ul Normal 0.0-0.7 [facility] Comment on above: Performed By: #### A MM #### [facility] [address] [address] [address] Nilay Gibbs Eosinophils/100 WBC (Bld) 1.6 % Normal 0.9-7.0 [facility] Comment on above: Performed By: #### A MM #### [facility] [address] [address] [address] Nilay Gibbs Erythrocyte distribution width (RBC) [Ratio] 14.0 % Normal 11.0-15.0 [facility] Comment on above: Performed By: #### A MM #### [facility] [address] [address] [address] Nilay Gibbs Hematocrit (Bld) [Volume fraction] 40.2 % Critically low 42.0-54.0 [facility] Comment on above: Performed By: #### A MM #### [facility] [address] [address] [address] Nilay Gibbs Hemoglobin (Bld) [Mass/Vol] 13.7 g/dL Critically low 14.0-18.0 [facility] Comment on above: Performed By: #### A MM #### [facility] [address] [place] [address] Dr. Nilay Gibbs IG # 0.01 10e3/ul Normal 0.00-0.03 [facility] Comment on above: Performed By: #### A MM #### [facility] [address] [place] [address] Dr. Nilay Gibbs IG % 0.2 % Normal 0.0-0.5 [facility] Comment on above: Performed By: #### A MM #### [facility] [address] [place] [address] Dr. Nilay Gibbs LYMPH # 2.1 103/ul Normal 1.2-3.8 [facility] Comment on above: Performed By: #### A MM #### [facility] [address] [place] [address] Dr. Nilay Gibbs Lymphocytes/100 WBC (Bld) 37.1 % Normal 20.5-60.0 [facility] Comment on above: Performed By: #### A MM #### [facility] [address] [place] [address] Dr. Nilay Gibbs MANUAL DIFF REQ NO Normal [facility] Comment on above: Performed By: #### A MM #### [facility] [address] [place] [address] Dr. Nilay Gibbs MCH (RBC) [Entitic mass] 30.1 pg Normal 25.9-34.0 [facility] Comment on above: Performed By: #### A MM #### [facility] [address] [place] [address] Dr. Nilay Gibbs MCHC (RBC) [Mass/Vol] 34.1 g/dL Normal 29.9-35.2 [facility] Comment on above: Performed By: #### A MM #### [facility] [address] [place] [address] Dr. Nilay Gibbs MCV (RBC) [Entitic vol] 88.4 fL Normal 80.0-94.0 [facility] Comment on above: Performed By: #### A MM #### [facility] [address] [address] [address] Nilay Gibbs MONO # 0.4 103/ul Normal 0.3-0.8 [facility] Comment on above: Performed By: #### A MM #### [facility] [address] [address] [address] Nilay Gibbs Monocytes/100 WBC (Bld) 7.2 % Normal 1.7-12.0 [facility] Comment on above: Performed By: #### A MM #### [facility] [address] [address] [address] Nilay Gibbs NEUT # 3.1 103/ul Normal 1.4-6.5 [facility] Comment on above: Performed By: #### A MM #### [facility] [address] [place] [address] Dr. Nilay Gibbs Neutrophils/100 WBC (Bld) 53.4 % Normal 43.0-75.0 [facility] Comment on above: Performed By: #### A MM #### [facility] [address] [place] [address] Dr. Nilay Gibbs Platelet mean volume (Bld) [Entitic vol] 10.3 fL Normal 9.5-13.5 [facility] Comment on above: Performed By: #### A MM #### [facility] [address] [place] [address] Dr. Nilay Gibbs PLT 254 103/ul Normal 150-450 [facility] Comment on above: Performed By: #### A MM #### [facility] [address] [address] [address] Nilay Gibbs RBC 4.55 106/ul Critically low 4.70-6.10 [facility] Comment on above: Performed By: #### A MM #### [facility] [address] [place] [address] Dr. Nilay Gibbs WBC 5.7 103/ul Normal 4.0-11.0 [facility] Comment on above: Performed By: #### A MM #### [facility] [id number] Nilay Gibbs CT HEAD WO CONon [...] RUFINA MARIN Date: 2021-09-27 10:27 Normal [facility] CTA HEAD WO W CONon [...] by: NEL KING Date: 2021-09-27 12:19 Normal [facility] CTA NECK WO W CONon [...] NEL KING Date: 2021-09-27 12:06 Normal [facility] Creatine kinase [Enzymatic a ctivity/volume] in Serum or PlasmaOrdered By: Kristal Goldberg on 09-27-2021 CK [Catalytic activity/Vol] 181 U/L 22-269 [facility] Creatinine and Glomerular fi ltration rate.predicted panel (S/P/Bld)Ordered By: Kristal Goldberg on 09-27-2021 Creatinine [Mass/Vol] 1.36 mg/dL 0.64-1.27 [facility] Eosinophils Auto (Bld) [#/Vo l]Ordered By: Kristal Goldberg on 09-27-2021 Eosinophils (Bld) [#/Vol] 0.1 10*3/uL 0.0-0.45 [facility] Eosinophils/100 WBC Auto (Bl d)Ordered By: Kristal Goldberg on 09-27-2021 Eosinophils/100 WBC (Bld) 1.2 % . [facility] Erythrocyte distribution wid th Auto (RBC) [Ratio]Ordered By: Kristal Goldberg on 09-27-2021 Erythrocyte distribution width (RBC) [Ratio] 14.5 % 12.0-14.8 [facility] Estimated glomerular filtrat ion rate (GFR) non- AmericanOrdered By: Kristal Goldberg on 09-27-2021 GFR/1.73 sq M.predicted among non-blacks MDRD (S/P/Bld) [Vol rate/Area] > 60 mL/Min [facility] Globulin Calc (S) [Mass/Vol] Ordered By: Kristal Goldberg on 09-27-2021 Globulin (S) [Mass/Vol] 2.4 g/dL [facility] Hematocrit Auto (Bld) [Volum e fraction]Ordered By: Kristal Goldberg on 09-27-2021 Hematocrit (Bld) [Volume fraction] 40.8 % 38.8-50.0 [facility] Ketones Auto test strip (U) [Mass/Vol]Ordered By: Kristal Goldberg on 09-27-2021 Ketones (U) [Mass/Vol] Negative Negative [facility] - CoagulationOrde red By: Kristal Goldberg on 09-27-2021 PT Coag (PPP) [Time] 11.8 s 9.0-12.9 [facility] - Hematology and Cell countsOrdered By: Kristal Goldberg on 09-27-2021 Nucleated RBC/100 WBC (Bld) [Ratio] 0.0 % 0-0.5 [facility] Lymphocytes Auto (Bld) [#/Vo l]Ordered By: Kristal Goldberg on 09-27-2021 Lymphocytes (Bld) [#/Vol] 1.8 10*3/uL 1.00-4.8 [facility] Lymphocytes/100 WBC Auto (Bl d)Ordered By: Kristal Goldberg on 09-27-2021 Lymphocytes/100 WBC (Bld) 31.2 % . [facility] MCH Auto (RBC) [Entitic mass ]Ordered By: Kristal Goldberg on 09-27-2021 MCH (RBC) [Entitic mass] 30.1 pg 27.5-35.2 [facility] MCHC Auto (RBC) [Mass/Vol]Or dered By: Kristal Goldberg on 09-27-2021 MCHC (RBC) [Mass/Vol] 33.4 g/dL 32.5-35.6 [facility] MCV Auto (RBC) [Entitic vol] Ordered By: Kristal Goldberg on 09-27-2021 MCV (RBC) [Entitic vol] 90.3 fL 83.5-101 [facility] Monocytes Auto (Bld) [#/Vol] Ordered By: Kristal Goldberg on 09-27-2021 Monocytes (Bld) [#/Vol] 0.3 10*3/uL 0.0-0.8 [facility] Monocytes/100 WBC Auto (Bld) Ordered By: Kristal Goldberg on 09-27-2021 Monocytes/100 WBC (Bld) 6.0 % . [facility] Neutrophils Auto (Bld) [#/Vo l]Ordered By: Kristal Goldberg on 09-27-2021 Neutrophils (Bld) [#/Vol] 3.5 10*3/uL 1.8-7.7 [facility] Neutrophils/100 WBC Auto (Bl d)Ordered By: Kristal Goldberg on 09-27-2021 Neutrophils/100 WBC (Bld) 61.3 % . [facility] No Panel InformationOrdered By: Kristal Goldberg on 09-27-2021 Estimated GFR () > 60 mL/Min [facility] Comment on above: GFR estimated refere nce range: According to KDOQI guidelines, <60 ml/min/1.73m2 is sufficient to diagnose a patient with chronic kidney disease. Pharmacy Creatinine Clearance (Chem 94.06 [facility] PROF CHEM 8 (BAS METB)on Anion gap [Moles/Vol] 10.0 mmol/L Normal [facility] Comment on above: Performed By: #### C MP #### [facility] [address] [address] [address] Nilay Gibbs Calcium [Mass/Vol] 9.4 mg/dL Normal 8.5-10.1 [facility] Comment on above: Performed By: #### C MP #### [facility] [address] [address] [address] Nilay Gibbs Chloride [Moles/Vol] 103 mmol/L Normal 98-107 [facility] Comment on above: Performed By: #### C MP #### [facility] [address] [address] [address] Nilay Gibbs CO2 [Moles/Vol] 27.6 mmol/L Normal 21.0-32.0 [facility] Comment on above: Performed By: #### C MP #### [facility] [address] [address] [address] Nilay Gibbs Creatinine [Mass/Vol] 1.39 mg/dL Critically high 0.70-1.30 [facility] Comment on above: Performed By: #### C MP #### [facility] [address] [address] [address] Nilay Gibbs EGFR-AF UZBEK >60 Normal >=60 [facility] Comment on above: Performed By: #### C MP #### [facility] [address] [address] [address] Nilay Gibbs EGFR-NON AF UZBEK 60 mL/min/1.73m2 Normal >=60 [facility] Comment on above: Performed By: #### C MP #### [facility] [address] [address] [address] Nilay Gibbs Glucose [Mass/Vol] 115 mg/dL Critically high 74-106 [facility] Comment on above: Performed By: #### C MP #### [facility] [address] [address] [address] Nilay Gibbs Potassium [Moles/Vol] 3.6 mmol/L Normal 3.5-5.1 [facility] Comment on above: Performed By: #### C MP #### [facility] [address] [address] [address] Nilay Gibbs Sodium [Moles/Vol] 137 mmol/L Normal 136-145 [facility] Comment on above: Performed By: #### C MP #### [facility] [address] [address] [address] Nilay Gibbs Urea nitrogen [Mass/Vol] 17.0 mg/dL Normal 7.0-18.0 [facility] Comment on above: Performed By: #### C MP #### [facility] [address] [place] [address] Dr. Nilay Gibbs Urea nitrogen/Creatinine [Mass ratio] 12.2 mg/mg Normal [facility] Comment on above: Performed By: #### C MP #### [facility] [address] [place] [address] Dr. Nilay Gibbs PROTIMEon 09-27-2021 INR Coag (PPP) [Relative time] 0.99 {INR} Normal [facility] Comment on above: Performed By: #### P T, PTT #### [facility] [address] [place] [address] Dr. Nilay Gibbs INR GUIDELINES SEE BELOW Normal [facility] Comment on above: Result Comment: PETRONA RED INR: 2.0 - 3.0 CONDITIONS NOT LISTED BELOW 2.5 - 3.5 FOR PROSTHETIC HEART VALVE REPLACEMENT 2.5 - 3.5 RECURRENT THROMBOSIS Performed By: #### P T, PTT #### [facility] [address] [place] [address] Dr. Nilay Gibbs PT Coag (PPP) [Time] 10.7 s Normal 9.0-11.6 [facility] Comment on above: Performed By: #### P T, PTT #### [facility] [address] [place], [place] [address] Dr. Nilay Gibbs PTTon 09-27-2021 aPTT Coag (Bld) [Time] 29.1 s Normal 22.3-36.2 [facility] Comment on above: Performed By: #### P T, PTT #### [facility] [address] [address] [address] Nilay Gibbs Platelet mean volume Auto (B ld) [Entitic vol]Ordered By: Kristal Goldberg on 09-27-2021 Platelet mean volume (Bld) [Entitic vol] 8.7 fL 6.6-10.1 [facility] Platelet poor plasma interna tional normalized ratio (INR) by coagulation assay (relatOrdered By: Kristal Goldberg on 09-27-2021 INR Coag (PPP) [Relative time] 1.1 {INR} [facility] Comment on above: INR Therapeutic Rang [...] 09-27-2021 Platelets (Bld) [#/Vol] 240 10*3/uL 150-450 [facility] Protein Auto test strip (U) [Mass/Vol]Ordered By: Kristal Goldberg on 09-27-2021 Protein (U) [Mass/Vol] Negative Negative [facility] Protein [Mass/volume] in Ser um or PlasmaOrdered By: Kristal Goldberg on 09-27-2021 Protein [Mass/Vol] 6.5 g/dL 6.1-7.9 [facility] RBC Auto (Bld) [#/Vol]Ordere d By: Kristal Goldberg on 09-27-2021 RBC (Bld) [#/Vol] 4.52 10*6/uL 3.90-5.60 [facility] Serum or plasma alanine marquez otransferase measurement without P-5'-P (enzymatic activiOrdered By: Kristal Goldberg on 09-27-2021 ALT No additional P-5'-P [Catalytic activity/Vol] 22 U/L 10-60 [facility] Serum or plasma albumin/glob ulin mass ratioOrdered By: Kristal Goldberg on 09-27-2021 Albumin/Globulin [Mass ratio] 1.7 {ratio} [facility] Serum or plasma alkaline kimi sphatase measurement (enzymatic activity/volume)Ordered By: Kristal Goldberg on 09-27-2021 ALP [Catalytic activity/Vol] 72 U/L 32-92 [facility] Serum or plasma aspartate am inotransferase measurement (enzymatic activity/volume)Ordered By: Kristal Goldberg 09-27-2021 AST [Catalytic activity/Vol] 24 U/L 10-42 [facility] Serum or plasma calcium isabel urement (mass/volume)Ordered By: Kristal Goldberg on 09-27-2021 Calcium [Mass/Vol] 9.6 mg/dL 8.2-10.2 [facility] Serum or plasma chloride airam surement (moles/volume)Ordered By: Kristal Goldberg on 09-27-2021 Chloride [Moles/Vol] 98 mmol/L 95-114 [facility] Serum or plasma creatine kin ase MB (CKMB)/total creatine kinase (CK) ratio by calculaOrdered By: Kristal Goldberg on 09-27-2021 CK.MB Calc [Catalytic fraction] 1.7 % 0.00-2.50 [facility] Serum or plasma creatine kin ase MB measurement (mass/volume)Ordered By: Kristal Goldberg on 09-27-2021 CK.MB [Mass/Vol] 3.1 ng/mL 0.6-6.3 [facility] Serum or plasma glucose isabel urement (mass/volume)Ordered By: Kristal Goldberg on 09-27-2021 Glucose [Mass/Vol] 94 mg/dL 70-100 [facility] Comment on above: ADA recommended refe rence [...] on 09-27-2021 Potassium [Moles/Vol] 3.9 mmol/L 3.5-5.1 [facility] Serum or plasma sodium measu rement (moles/volume)Ordered By: Kristal Goldberg on 09-27-2021 Sodium [Moles/Vol] 135 mmol/L 136-146 [facility] Serum or plasma total biliru bin measurement (mass/volume)Ordered By: Kristal Goldberg on 09-27-2021 Bilirubin [Mass/Vol] 0.8 mg/dL 0.3-1.2 [facility] Serum or plasma total carbon dioxide measurement (moles/volume)Ordered By: Kristal Goldberg on 09-27-2021 CO2 [Moles/Vol] 24.8 mmol/L 22.0-30.0 [facility] Serum or plasma urea nitroge n measurement (mass/volume)Ordered By: Kristal Goldberg on 09-27-2021 Urea nitrogen [Mass/Vol] 13 mg/dL 9-23 [facility] TROPONIN, HIGH SENSITIVITYon 09-27-2021 HSTROP 4.5 pg/mL Normal 4.0-76.1 [facility] Comment on above: Result Comment: CUT- OFF POINTS HAVE BEEN ESTABLISHED BASED ON THE FOURTH UNIVERSAL DEFINITIONS OF MYOCARDIAL INFARCTION. THE UPPER REFERENCE LIMIT (URL) OF TROPONIN, DEFINED THE 99TH PERCENTILE OF cTnI DISTRIBUTION IN A REFERENCE POPULATION, HAS BEEN CONFIRMED THE DECISION THRESHOLD FOR HI DIAGNOSIS. Performed By: #### C #### [facility] [address] [place] [address] Dr. Nilay Gibbs Troponin I.cardiac [Mass/vol ume] in Serum or Plasma by High sensitivity methodOrdered By: Kristal Goldberg on 09-27-2021 Troponin I.cardiac High sensitivity method [Mass/Vol] < 3 pg/mL 0-20 [facility] Urine appearanceOrdered By: Kristal Goldberg on 09-27-2021 Appearance (U) Clear Clear [facility] Urine colorOrdered By: Aurora Goldberg on 09-27-2021 Color (U) Yellow Yellow [facility] Urine glucose measurement by automated test strip (mass/volume)Ordered By: Kristal Glodberg on 09-27-2021 Glucose Auto test strip (U) [Mass/Vol] Normal mg/dL Normal [facility] Urine hemoglobin detection b y automated test stripOrdered By: Kristal Goldberg on 09-27-2021 Hemoglobin Auto test strip Ql (U) Negative Negative [facility] Urine leukocyte esterase det ection by automated test stripOrdered By: Kristal Goldberg on 09-27-2021 Leukocyte esterase Auto test strip Ql (U) Negative Negative [facility] Urine nitrite detection by a utomated test stripOrdered By: Kristal Goldberg on 09-27-2021 Nitrite Auto test strip Ql (U) Negative Negative [facility] Urobilinogen Auto test strip (U) [Mass/Vol]Ordered By: Kristal Goldberg on 09-27-2021 Urobilinogen (U) [Mass/Vol] Normal mg/dL Normal [facility] pH Auto test strip (U)Ordere d By: Kristal Goldberg on 09-27-2021 pH (U) 1.005 [pH] 1.001-1.030 [facility] pH (U) 5.5 [pH] 5.0-9.0 [facility] XR SHOULDER 2V AP/TRUE AP LT [...] Mild glenohumeral narrowing IMPRESSION: Mild glenohumeral arthrosis 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 Transcribe Date/Time: Aug 19 2020 12:49P Dictated by : FLORENTIN PATEL MD This examination was interpreted and the report reviewed and electronically signed by: FLORENTIN PATEL MD on Aug 19 2020 12:49PM EST [id number] [facility] XR HAND 3V PA/LAT/OBL BILon [...] tophi, more pronounced then when compared to 2017. Unchanged erosive findings in the right greater than left hand and superimposed degenerative change. 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: [employer] Transcribe Date/Time: Apr 02 2020 10:18A Dictated by : EDDA PAUL MD This examination was interpreted and the report reviewed and electronically signed by: EDDA PAUL MD on Apr 02 2020 10:25AM EST [id number] [facility] LUMBAR SPINE WO CONTRASTo n [...] Mike Felipe MD 07/12/18 Final result Normal [facility] CT THORACIC SPINE WO CONTRAS Ton [...] Mike Felipe MD 07/12/18 Final result Normal [facility] Vital Signs Date Time Vital Sign Value Performing Clinician Florentin quinn 01-01-2022 11:34-0400 Body weight 99.79 kg Delmy Boyle MD Work Phone: [facility] 01-01-2022 11:34-0400 Diastolic blood pressure 65 mm[Hg] Delmy Boyle MD Work Phone: [facility] 01-01-2022 11:34-0400 Heart rate 65 /min Delmy Boyle MD Work Phone: [facility] 01-01-2022 11:34-0400 Systolic blood pressure 102 mm[Hg] Delmy Boyle MD Work Phone: [facility] 12-10-2021 15:30-0400 Diastolic blood pressure 71 mm[Hg] MD Leydi Aceves Work Phone: [facility] 12-10-2021 15:30-0400 Heart rate 70 /min MD Leydi Aceves Work Phone: [facility] 12-10-2021 15:30-0400 Respiratory rate 16 /min MD Leydi Aceves Work Phone: [facility] 12-10-2021 15:30-0400 SaO2% (BldA) [Mass fraction] 98 % MD Leydi Aceves Work Phone: [facility] 12-10-2021 15:30-0400 Systolic blood pressure 113 mm[Hg] MD Leydi Aceves Work Phone: [facility] 12-10-2021 07:30-0400 Body temperature 98 [degF] MD Leydi Aceves Work Phone: [facility] 12-08-2021 15:45-0400 Body height 190.5 cm MD Leydi Aceves Work Phone: [facility] 12-08-2021 08:56-0400 Body weight 99.79 kg MD Leydi Aceves Work Phone: [facility] 09-27-2021 21:38-0400 Heart rate 68 /min MD Leydi Aceves Work Phone: [facility] 09-27-2021 21:30-0400 Diastolic blood pressure 79 mm[Hg] MD Leydi Aceves Work Phone: [facility] 09-27-2021 21:30-0400 Respiratory rate 20 /min MD Leydi Aceves Work Phone: [facility] 09-27-2021 21:30-0400 SaO2% (BldA) [Mass fraction] 100 % MD Leydi Aceves Work Phone: [facility] 09-27-2021 21:30-0400 Systolic blood pressure 135 mm[Hg] MD Leydi Aceves Work Phone: [facility] 09-27-2021 18:31-0400 Body height 190.5 cm MD Leydi Aceves Work Phone: [facility] 09-27-2021 18:31-0400 Body temperature 98 [degF] MD Leydi Aceves Work Phone: [facility] 09-27-2021 18:31-0400 Body weight 99.79 kg MD Leydi Aceves Work Phone: [facility] Encounters Encounter Date Encounter Type Care Provider Facility Start: 05-18-2023 End: 05-18-2023 ambulatory RUGEN M KETAN Not Available Start: 05-09-2023 End: 05-12-2023 ambulatory Nicola Leyva Facility:[facility] Start: 05-03-2023 End: 05-03-2023 ambulatory RUGEN M KETAN Not Available Start: 04-05-2023 Refill Rugen M Ketan M D Work Phone: [facility] Start: 03-12-2023 ambulatory Rugen M Ketan Facility:[facility] Start: 03-08-2023 End: 03-08-2023 ambulatory RUGEN MABBROOKSY KETAN Facility:[facility] Start: 03-04-2023 End: 03-04-2023 ambulatory DELMY BOYLE Facility:[facility] Start: 02-24-2023 End: 02-24-2023 Emergency department patient visit Ladi Huber Facility:[facility] Start: 02-19-2023 End: 02-20-2023 [facility] Start: 01-12-2023 End: 01-12-2023 ambulatory MIRI REES Not Available Start: 11-13-2022 ambulatory Delmy newton MD Work Phone: Rheumatology Comment on above: Prednisone Start: 11-13-2022 E-mail encounter ranulfo bennett caregiver Delmy Boyle MD Work Phone: [facility] Start: 11-13-2022 Telephone encounter Delmy luna MD Work Phone: [facility] Comment on above: Patient Request Start: 08-14-2022 End: 08-14-2022 ambulatory DELMY BOYLE Facility:[facility] Start: 08-12-2022 End: 08-13-2022 ambulatory DELMY BOYLE Facility:[facility] Start: 07-24-2022 End: 07-24-2022 ambulatory MATIAS [...] of inpatient MD Leydi Aceves Work Phone: [facility] Start: 12-06-2021 End: 12-07-[address] LEYDI ACEVES Facility:[facility] Start: 10-19-2021 End: 10-19-2021 ambulatory ZHAO MAURER . Facility:[facility] Start: 09-27-2021 End: 09-27-2021 Emergency department patient visit MD Leydi Aceves Work Phone: [facility] Start: 09-27-2021 End: 09-27-2021 ambulatory ZHAO MAURER . 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 Start: 07-12-2018 End: 07-13-2018 Emergency department patient visit LEYDI ACEVES [facility] Procedures Date Procedure Procedure Detail Performing Clinician Start: 08-19-2020 Adult depression screening assessment Delmy Boyle MD Work Phone: Start: 07-12-2018 Ct lumbar spine w/o contrast material LEYDI ACEVES Start: 07-12-2018 Ct thoracic spine w/ o contrast material LEYDI ACEVES Plan of Treatment Date Care Activity Detail Author Start: 06-01-2026 Urine microalbumin profile [facility] Start: 08-29-2023 Influenza vaccination Influenz a Vaccine (#1) [facility] Comment on above: Postponed from 10/30 (Other Patient Reasons) Start: 08-13-2023 Serum Creatinine Serum Creatinine Cl [facility] Start: 01-01-2023 BP CONTROLLED (<130/80) BP CON TROLLED (<130/80) [facility] Start: 10-30-2022 Influenza vaccination [facility] Start: 07-13-2022 End: 09-12-2022 Alanine aminotransferase [Enzymatic activity/volume] in Serum or Plasma ALT/SGPT Lab 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 Encounter for long-term (current) use of medications Expected: 07/13/2022 (Approximate), Expires: 09/12/2022 [facility] Work Phone: Comment on above: Expected: 07/13/2022 (Approximate), Expires: 09/12/2022 Start: 07-13-2022 End: 09-12-2022 Albumin [Mass/volume] in Serum or Plasma ALBUMIN BLD Lab 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 Encounter for long-term (current) use of medications Expected: 07/13/2022 (Approximate), Expires: 09/12/2022 [facility] Work Phone: Comment on above: Expected: 07/13/2022 (Approximate), Expires: 09/12/2022 Start: 07-13-2022 End: 09-12-2022 Aspartate aminotransferase [Enzymatic activity/volume] in Serum or Plasma AST/SGOT BLD Lab 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 Encounter for long-term (current) use of medications Expected: 07/13/2022 (Approximate), Expires: 09/12/2022 [facility] Work Phone: Comment on above: Expected: 07/13/2022 (Approximate), Expires: 09/12/2022 Start: 07-13-2022 End: 09-12-2022 C reactive protein [Mass/volume] in Serum or Plasma C-REACTIVE PROTEIN (CRP) Lab 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 Encounter for long-term (current) use of medications Expected: 07/13/2022 (Approximate), Expires: 09/12/2022 [facility] Work Phone: Comment on above: Expected: 07/13/2022 (Approximate), Expires: 09/12/2022 Start: 07-13-2022 End: 09-12-2022 CBC W Auto Differential panel - Blood CBC + DIFF Lab 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 Encounter for long-term (current) use of medications Expected: 07/13/2022 (Approximate), Expires: 09/12/2022 [facility] Work Phone: Comment on above: Expected: 07/13/2022 (Approximate), Expires: 09/12/2022 Start: 07-13-2022 End: 09-12-2022 CREATININE BLD CREATININE BLD Lab 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 Encounter for long-term (current) use of medications Expected: 07/13/2022 (Approximate), Expires: 09/12/2022 [facility] Work Phone: Comment on above: Expected: 07/13/2022 (Approximate), Expires: 09/12/2022 Start: 07-13-2022 End: 09-12-2022 Erythrocyte sedimentation rate SED RATE WESTERGREN Lab 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 Encounter for long-term (current) use of medications Expected: 07/13/2022 (Approximate), Expires: 09/12/2022 [facility] Work Phone: Comment on above: Expected: 07/13/2022 (Approximate), Expires: 09/12/2022 Start: 07-13-2022 End: 09-12-2022 Urate [Mass/volume] in Serum or Plasma URIC ACID BLOOD Lab 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 Encounter for long-term (current) use of medications Expected: 07/13/2022 (Approximate), Expires: 09/12/2022 [facility] Work Phone: Comment on above: Expected: 07/13/2022 (Approximate), Expires: 09/12/2022 Start: 04-23-2022 SERUM CREATININE SERUM CREATININE Cl [facility] Start: 03-01-2022 DEPRESSION ASSESSMENT DEPRESSION ASS ESSMENT [facility] Start: 12-10-2021 [facility] Start: 10-09-2022 Hospital admission [facility] Start: 12-07-2021 Referral to [facility] Start: 10-30-2021 Influenza vaccination C [facility] Start: 08-19-2021 Adult depression scr eening assessment DEPRESSION SCREENING [facility] Start: 03-01-2021 DEPRESSION ASSESSMENT DEPRESSION ASS ESSMENT [facility] Start: 02-26-2008 ANNUAL PCP TEAM BAIL BOND AGENT SAVANA DISEASE VISIT ANNUAL PCP TEAM CHRONIC DISEASE VISIT [facility] Start: 02-26-2008 BP CONTROLLED (<130/80) BP CON TROLLED (<130/80) [facility] Start: 02-26-2008 HIV SCREENING HIV SCREENING [facility] Start: 1995 COVID-19 VACCINE (#1) COVID-19 VACCI NE (#1) [facility] Start: 1990 COVID-19 VACCINE (#1) COVID-19 VACCI NE (#1) [facility] Start: 1990 HEPATITIS B (1 of 3 - 3-dose series) HEPATITIS B (1 of 3 - 3-dose series) [facility] Start: 1990 Hepatitis B Vaccine (1 of 3 - 3-dose series) Hepatitis B Vaccine (1 of 3 - 3-dose series) [facility] Patient Education [facility] Work Phone: Patient referral [facility] Work Phone: [facility] Immunizations Immunization Date Immunization Notes Care Provider Fa cility 10-13-2018 influenza virus vacc ine, unspecified formulation Delmy Boyle MD Work Phone: [facility] 10-13-2002 measles, mumps and rubella virus vaccine Leydi Aceves MD Work Phone: [facility] 10-20-1993 diphtheria, tetanus toxoids and acellular pertussis vaccine, unspecified formulation Leydi Aceves MD Work Phone: [facility] 10-20-1993 haemophilus influenz ae type b vaccine, conjugate unspecified formulation Leydi Aceves MD Work Phone: [facility] 10-20-1993 trivalent poliovirus vaccine, live, oral Leydi Aceves MD Work Phone: [facility] 07-26-1991 diphtheria, tetanus toxoids and pertussis vaccine Leydi Aceves MD Work Phone: [facility] 07-26-1991 haemophilus influenz ae type b vaccine, conjugate unspecified formulation Leydi Aceves MD Work Phone: [facility] 07-26-1991 measles, mumps and rubella virus vaccine Leydi Aceves MD Work Phone: [facility] 02-03-1991 diphtheria, tetanus toxoids and pertussis vaccine Leydi Aceves MD Work Phone: [facility] 02-03-1991 haemophilus influenz ae type b vaccine, conjugate unspecified formulation Leydi Aceves MD Work Phone: [facility] 02-03-1991 trivalent poliovirus vaccine, live, oral Leydi Aceves MD Work Phone: [facility] 1990 diphtheria, tetanus toxoids and pertussis vaccine Leydi Aceves MD Work Phone: [facility] 1990 haemophilus influenz ae type b vaccine, conjugate unspecified formulation Leydi Aceves MD Work Phone: [facility] 1990 trivalent poliovirus vaccine, live, oral Leydi Aceves MD Work Phone: [facility] Payers Date Payer Category Payer Self-pay 2021 Medicaid [employer] [facility] [id number] 2021-Present [phone] [address] [place] [address] Medicaid [id number] 2021 Medicaid [id number] 2018 Unknown [id number] 1990 Unknown [id number] 1990 Unknown [id number] [id number] 1990 Unknown [id number] [id number] 1990 Unknown [id number] [id number]3 1990 Unknown [id number] [id number] 1990 Unknown [id number] [id number] 1990 Unknown [id number] 2.16.840.1.182318.3.579.2.593 1990 Unknown [id number] 2.16.840.1.343713.3.579.2.593 1990 Unknown [id number] 2.16.840.1.481238.3.579.2.593 1990 Unknown [id number] 2.16.840.1.816612.3.579.2.593 1990 Unknown [id number] 2.16.840.1.471509.3.579.2.593 1990 Unknown [id number] 2.16.840.1.933062.3.579.2.727 1990 Unknown [id number] 2.16.840.1.809023.3.579.2.1259 1990 Unknown [id number] [id number]59 1990 Unknown [id number] [id number] 1959 Medicaid [id number] 1959 Unknown [id number] Unknown [facility] [id number] Unknown [id number] Unknown [id number] Social History Date Type Detail Facility Start: 05-04-2017 End: 09-14-2022 Tobacco smoking status ALIS Never smoked tobacco [facility] Start: 05-04-2017 End: 01-01-2022 Tobacco use and exposure User of smokeless tobacco [facility] History of tobacco use Chews Tobacco [facility] Start: 1990 Sex Assigned At Male [facility] Start: 12-08-2021 Tobacco smoking status NHIS Smoker (finding) [facility] Start: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
[2023-06-03 01:17] LABS: Creatine Kinase 650 U/L (39-308)
[2023-06-03 01:18] LABS: Creatine Kinase MB 13.64 ng/mL (<=3.60); Myoglobin 3409 ng/mL (16-96); Troponin I High Sensitivity 50.4 pg/mL (4.0-76.1)
--- NOTE | 2023-06-03 02:04 | CT_ITS ---
The [address] [address] Patient Name: TRU CARDOZA MRN: [id number] date: 1990 Sex: M Assigned Patient Location: ICU Current Patient Location: ICU Accession/Order Number: [id number] Exam Date: 06/03/2023 03:48 Report Date: 06/03/2023 04:35 At the request of: RAEGAN THAKUR Procedure: CT head/brain wo con EXAM: CT head/brain wo con HISTORY: Altered mental status COMPARISON: CT head from 04/20/2023. TECHNIQUE: Axial images of the brain were obtained from the skull base to the vertex without contrast enhancement. Sagittal and coronal reformations were provided. COMMENT: Motion and streak artifact degrade image quality limiting this study. FINDINGS: Within the limitations of this examination (see comment above), no convincing evidence of an acute intracranial hemorrhage or definite evidence of an acute ischemic event. No extra-axial fluid collection, significant mass effect or midline shift is seen. No space-occupying lesion is demonstrated. There is no evidence of hydrocephalus. The paranasal sinuses and mastoids are well-aerated. CT/CT head/brain wo con IMPRESSION: Poor quality CT of the head without convincing evidence of an acute intracranial hemorrhage or definite evidence of an acute ischemic event. Electronically authenticated by: COLE CRESPO Date: 06/03/2023 04:35
[2023-06-03 02:18] LABS: Lactate/Lactic Acid 1.8 mmol/L (0.4-2.0)
[2023-06-03] MEDS: LORAZEPAM 2 MG/ML VIAL 1 MG IV ×2 (03:18→14:08)
[2023-06-03] MEDS: 0.9 % SODIUM CHLORIDE 1,000 ML 250 ML IV (03:32)
[2023-06-03 04:20] LABS: Basophils Percent Auto 0.3 % (0.2-2.0); Hematocrit 39.2 % (42.0-54.0); Immature Granulocytes Abs Auto 0.05 10^3/uL (0.00-0.03); Immature Granulocytes Pct Auto 0.3 % (0.0-0.5); Lymphocytes Percent Auto 12.6 % (20.5-60.0); Mean Corpuscular HGB Conc 33.2 g/dL (29.9-35.2); Mean Corpuscular Hemoglobin 29.1 pg (25.9-34.0); Mean Corpuscular Volume 87.7 fL (80.0-94.0); Mean Platelet Volume 10.5 fL (9.5-13.5); Monocytes Absolute Auto 1.1 10^3/uL (0.3-0.8); Monocytes Percent Auto 6.7 % (1.7-12.0); Neutrophils Absolute Auto 12.7 10^3/uL (1.4-6.5); Neutrophils Percent Auto 80.1 % (43.0-75.0); Platelet Count 276 10^3/uL (150-450); Red Blood Count 4.47 10^6/uL (4.70-6.10); Red Cell Distribution Width 14.3 % (11.0-15.0); White Blood Count 15.9 10^3/uL (4.0-11.0)
[2023-06-03 04:50] LABS: Alanine Aminotransferase 86 U/L (16-63); Albumin Globulin Ratio 1.2; Albumin Level 3.8 g/dL (3.4-5.0); Alkaline Phosphatase 83 U/L (46-116); Anion Gap 14.4; Aspartate Amino Transferase 63 U/L (15-37); BUN Creatinine Ratio 14.7; Bilirubin Total 0.4 mg/dL (0.2-1.0); Calcium 9.1 mg/dL (8.5-10.1); Carbon Dioxide 25.3 mmol/L (21.0-32.0); Chloride 116 mmol/L (98-107); Estimated GFR (African America 50 (>=60); Estimated GFR (Non-African Ame 41 (>=60); Globulin 3.1 g/dL; Glucose 110 mg/dL (74-106); Potassium 3.7 mmol/L (3.5-5.1); Sodium 152 mmol/L (136-145); Total Protein 6.9 g/dL (6.4-8.2)
[2023-06-03] MEDS: PIPERACILLIN SODIUM/TAZOBACTAM 3.375 GM in 0.9 % SODIUM CHLORIDE 50 ML IV ×3 (04:58→19:20)
[2023-06-03 05:21] LABS: Creatine Kinase 1645 U/L (39-308); Creatine Kinase MB 32.14 ng/mL (<=3.60)
[2023-06-03 05:22] LABS: Myoglobin 2406 ng/mL (16-96)
--- NOTE | 2023-06-03 06:00 | ECG_ITS ---
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
[2023-06-03] MEDS: LACTATED RINGER'S SOLUTION 1,000 ML 1000 ML IV (07:23)
[2023-06-03 07:43] LABS: INR 1.06; Prothrombin Time 11.2 sec (9.0-11.6)
[2023-06-03] MEDS: LACTATED RINGER'S SOLUTION 1,000 ML 100 ML IV ×3 (08:21→23:25)
[2023-06-03 08:26] LABS: Magnesium 2.1 mg/dL (1.8-2.4); Phosphorus 5.1 mg/dL (2.6-4.7); Troponin I High Sensitivity 57.5 pg/mL (4.0-76.1)
[2023-06-03 08:32] LABS: Ammonia 28 umol/L (11-32)
[2023-06-03] MEDS: LEVOFLOXACIN IN DEXTROSE 5 % 750 MG/150 ML IV.SOLN 100 MG IV (08:46)
--- NOTE | 2023-06-03 09:04 | P.HP_ITS ---
HPI H&P: HPI History of Present Illness Chief complaint: Overdose ALTERED MENTATION KIDNEY INJURY SEPSIS Narrative: Patient presented to the emergency room with altered mental status secondary to baclofen overdose. He was given Narcan without improvement. Patient placed in the intensive care unit. Hip progressive altered mental status overnight and CT scan was done which showed no acute findings. When I saw patient up in the intensive care unit, he was not oriented, did not know where he was or how he got there. He was awake and seemed to answer questions appropriately but doubt he will remember the conversation no focal neurological deficits Opioid HPI Opioid Management Most Recent Opioid Data: Last Pain Scale 5 04/21/23 12:33 Last Pain Assessment 06/03/23 11:34 Last ORT Total Score 10 06/03/23 01:22 Last ORT Risk Category High Risk 06/03/23 01:22 Ur Phencyclidine Scrn Negative (NEGATIVE) 06/02/23 22:15 Review of Systems ROS Status of ROS 10 or more systems reviewed and unremark able except as noted in history and below PFSH PFSH Medical History MONO (generalized anxiety disorder) ?F41.1 - Generalized anxiety disorder (ICD-10) Rheumatoid arthritis ?M06.9 - Rheumatoid arthritis, unspecified (ICD-10) Benign essential hypertension ?I10 - Essential (primary) hypertension (ICD-10) Gouty arthritis ?M10.9 - Gout, unspecified (ICD-10) Acute postoperative pain of knee ?G89.18 - Other acute postprocedural pain (ICD-10) ?M25.569 - Pain in unspecified knee (ICD-10) Visit for wound check ?Z51.89 - Encounter for other specified aftercare (ICD-10) Septic prepatellar bursitis of right knee ?M71.161 - Other infective bursitis, right knee (ICD-10) Acute viral syndrome ?B34.9 - Viral infection, unspecified (ICD-10) Diarrhea ?R19.7 - Diarrhea, unspecified (ICD-10) Rheumatoid arthritis flare ?M06.9 - Rheumatoid arthritis, unspecified (ICD-10) Polyarthralgia ?M25.50 - Pain in unspecified joint (ICD-10) Rheumatoid arthritis flare ?M06.9 - Rheumatoid arthritis, unspecified (ICD-10) Weakness ?R53.1 - Weakness (ICD-10) Mild shortness of breath ?R06.02 - Shortness of breath (ICD-10) Headache ?R51.9 - Headache, unspecified (ICD-10) Polyarthralgia ?M25.50 - Pain in unspecified joint (ICD-10) Flare of rheumatoid arthritis ?M06.9 - Rheumatoid arthritis, unspecified (ICD-10) Arthralgia ?M25.50 - Pain in unspecified joint (ICD-10) Drug-seeking behavior ?Z76.5 - Malingerer [conscious simulation] (ICD-10) Surgical History (Updated 04/20/23 @ 23:12 by April Sierra RN) Total knee replacement status ?Z96.659 - Presence of unspecified artificial knee joint (ICD-10) H/O shoulder surgery ?Z98.890 - Other specified postprocedural states (ICD-10) Social History (Updated 04/20/23 @ 23:15 by April Sierra RN) Smoking status: Never smoker Nicotine containing products detail: chew tobacco Highest level of school completed/degree received: decline to answer Meds Home Medications and Allergies Home Medications ?Medication ?Instructions ?Recorded ?Confirmed ?Type alprazolam 0.5 mg tablet 0.5 mg PO TID PRN anxiety 08/31/22 06/03/23 History amlodipine 10 mg tablet 10 mg PO QDAY 08/31/22 06/03/23 History celecoxib 100 mg capsule 100 mg PO DAILY PRN RA flare 08/31/22 06/03/23 History clonidine HCl 0.1 mg tablet 0.1 mg PO BID 08/31/22 06/03/23 History colchicine 0.6 mg tablet 0.6 mg PO .every other 08/31/22 06/03/23 History quetiapine 50 mg tablet See Rx Instructions PO .hs 08/31/22 06/03/23 History tramadol 50 mg tablet 50 mg PO Q6H PRN pain 08/31/22 06/03/23 History gabapentin 300 mg capsule 300 mg PO TID 02/15/23 06/03/23 History (Neurontin) oxycodone-acetaminophen 5 mg-325 1 tab PO Q6H PRN pain (scale score 02/16/23 06/03/23 Rx mg tablet (Percocet) 4-6) #10 tabs oxycodone-acetaminophen 5 mg-325 2 tab PO Q6H PRN pain (scale score 02/16/23 06/03/23 Rx mg tablet (Percocet) 7-10) #10 tabs cyclobenzaprine 10 mg tablet 10 mg PO TID PRN muscle spasm 03/06/23 06/03/23 History allopurinol 100 mg tablet 100 mg PO .QD 06/03/23 06/03/23 History allopurinol 300 mg tablet 300 mg PO BID 06/03/23 06/03/23 History baclofen 10 mg tablet 10 mg PO TID 06/03/23 06/03/23 History buspirone 5 mg tablet 5 mg PO BID 06/03/23 06/03/23 History cariprazine 1.5 mg capsule 1.5 mg PO .QD 06/03/23 06/03/23 History (Vraylar) escitalopram oxalate 20 mg tablet 20 mg PO .QD 06/03/23 06/03/23 History Allergies Allergy/AdvReac Type Severity Reaction Status Date / Time No Known Drug Allergies Allergy Verified 02/20/23 12:59 Exam Constitutional Vital Signs, click to edit/add: Last Vital Signs Temp 97.4 F L 06/03/23 07:46 Pulse 100 H 06/03/23 07:46 Resp 20 06/03/23 07:46 BP 139/89 06/03/23 07:46 Pulse Ox 97 06/03/23 07:46 O2 Del Method Nasal Cannula 06/03/23 07:46 O2 Flow Rate 2 06/03/23 05:19 Documenting provider has reviewed patient's vital signs: yes Common normals: no apparent distress Neck & C-Spine Common normals: full ROM and no lymphadenopathy Chest Common normals: inspection of chest normal Respiratory Common normals: normal respiratory effort, no retractions and clear to auscultation bilaterally Cardio Common normals: regular rate and regular rhythm GI Common normals: Normal to inspection, nondistended, normoactive bowel sounds present Extremity Common normals: normal to inspection, full ROM and no clubbing, cyanosis or edema Neuro Common normals: CN's II-XII intact bilaterally and moves all extremities; not oriented x3 Results Labs Labs: Short CBC 06/02/23 06/03/23 Range/Units 22:43 04:06 WBC 20.4 H 15.9 H (4.0-11.0) 10^3/uL Hgb 14.8 13.0 L (14.0-18.0) g/dL Hct 44.7 39.2 L (42.0-54.0) % Plt Count 306 276 (150-450) 10^3/uL BMP 06/02/23 06/03/23 22:43 04:06 Sodium 152 H 152 H Potassium 4.2 3.7 Chloride 111 H 116 H Carbon Dioxide 25.2 25.3 BUN 28.0 H 28.0 H Creatinine 2.66 H 1.90 H Glucose 126 H 110 H Calcium 9.5 9.1 Cardiac Enzymes 06/03/23 06/03/23 Range/Units 00:22 04:06 Total Creatine Kinase 650 H* 1645 H* (39-308) U/L CK-MB (CK-2) 13.64 H* 32.14 H* (<=3.60) ng/mL Liver Function 06/02/23 06/03/23 Range/Units 22:43 04:06 Total Bilirubin 0.3 0.4 (0.2-1.0) mg/dL AST 39 H 63 H (15-37) U/L ALT 96 H 86 H (16-63) U/L Alkaline Phosphatase 100 83 (46-116) U/L Albumin 4.4 3.8 (3.4-5.0) g/dL Urine 06/02/23 Range/Units 22:15 Urine Color Yellow (YELLOW) Urine Clarity Clear (CLEAR) Urine pH 7.0 (5.0-9.0) Ur Specific [place] 1.020 (1.005-1.025) Urine Protein 100 A (NEG/TRACE) mg/dL Urine Glucose (UA) Negative (NEGATIVE) mg/dL Assessment and Plan Assessment and Plan (1) Altered mental status: Plan Tachycardia, respiratory distress, uncontrolled hypertension, acute hypoxia with O2 saturation of 89% on 2 L secondary to baclofen overdose. Patient is more awake currently but again still not oriented. Monitor for signs of withdrawal. Lactic acidosis, leukocytosis with left shift consistent with bacterial process, doubt meningitis with no nuchal rigidity noted. Resulting in sepsis. Placed patient on IV antibiotics, possibly pulmonary process with O2 saturation 89% on 2 L, once hydration is achieved findings may show up more on chest x-ray Hypernatremia with acute renal failure at 268% above baseline, his creatinine baseline is 1.04. Creatinine on admission 2.66. Likely secondary to dehydration or complication of baclofen overdose. Hydration as outlined above. Secondary to dehydration-will give 3 L of fluids over the course of this morning. Elevated liver function test-likely related to acute processes as outlined above-check hepatitis panel Rhabdomyolysis-complicating the acute renal failure secondary to the dehydration-monitor levels daily. Level somewhat elevated this morning after repeat from ER, will repeat again early afternoon. History of gout-we will hold off on gout medications with possible complication for the acute renal failure Hypertension-hold off on medications currently will use as needed hydralazine Pain medication-uncertain why he takes it, not found in drug screen will hold off currently on Generalized anxiety disorder will continue with home medications except acute atropine due to sedation Obstruction with residual of over 1000 on postvoid-straight cath for now, could related to just the extreme fluid resuscitation given as outlined above, may need to place longer-term Cuadra catheter Admission status: With the degree of hypoxia acute renal failure, rhabdomyolysis and altered mental status, place patient inpatient status for aggressive fluid resuscitation neurological assessment IV antibiotics frequent laboratory evaluations. Medically necessary treatment will span 2 midnights Urinary Catheter Management Urinary Catheter Management Straight: Cath placed during this visit: yes Urethral indwelling: Yes Reason for continuing: acute urinary retention Insertion date: 06/02/23 Insertion time: 22:36
[2023-06-03] MEDS: 0.9 % SODIUM CHLORIDE 1,000 ML 1000 ML IV ×2 (09:12→10:15)
--- NOTE | 2023-06-03 09:21 | CM.NOTE ---
Rounds made with Dr. John, pt awake and shakes head yes and no to questions. Pt will get continued IV fluids today, no discharge. Pt will be changed to inpatient status d/t rhabdomyolysis per Dr. John.
[2023-06-03] MEDS: AMLODIPINE BESYLATE 5 MG TABLET 10 MG PO (09:51)
[2023-06-03] MEDS: BUSPIRONE HCL 10 MG TABLET 5 MG PO ×2 (09:51→21:03)
[2023-06-03] MEDS: CLONIDINE HCL 0.1 MG TABLET 0.100000000000000006 MG PO ×2 (09:51→21:02)
[2023-06-03] MEDS: ESCITALOPRAM 10 MG TABLET 20 MG PO (09:51)
--- NOTE | 2023-06-03 11:37 | CM.NOTE ---
Attempted to discuss with pt mental health and his hx of depression. Pt does verbalizes that he is still seeing [facility] as outpatient and will continue to follow with them. Pt denies over use of any medications or any recent changes in his medications. Pt denies use of alcohol or any illegal drugs. Pt still falls asleep quickly when attempting conversation. SW or Case Management will f/u at later time for discharge planning.
[2023-06-03 13:52] LABS: Creatine Kinase 2299 U/L (39-308); Creatine Kinase MB 29.76 ng/mL (<=3.60); Myoglobin 417 ng/mL (16-96)
[2023-06-03] MEDS: GABAPENTIN 300 MG CAPSULE PO ×2 (17:41→21:03)
[2023-06-03] MEDS: ALPRAZOLAM 0.5 MG TABLET PO (23:25)
[2023-06-04] VITALS (7 sets, daily range): BP systolic 144–166; BP diastolic 92; PULSE 65–92; TEMP 37.2; O2SAT 97
[2023-06-04] MEDS: PIPERACILLIN SODIUM/TAZOBACTAM 3.375 GM in 0.9 % SODIUM CHLORIDE 50 ML IV (04:54)
[2023-06-04 05:00] LABS: Basophils Absolute Auto 0.1 10^3/uL (0.0-0.1); Basophils Percent Auto 0.6 % (0.2-2.0); Eosinophils Absolute Auto 0.1 10^3/uL (0.0-0.7); Eosinophils Percent Auto 0.7 % (0.9-7.0); Hematocrit 38.9 % (42.0-54.0); Hemoglobin 12.4 g/dL (14.0-18.0); Immature Granulocytes Abs Auto 0.03 10^3/uL (0.00-0.03); Immature Granulocytes Pct Auto 0.3 % (0.0-0.5); Lymphocytes Absolute Auto 3.6 10^3/uL (1.2-3.8); Lymphocytes Percent Auto 33.6 % (20.5-60.0); Mean Corpuscular HGB Conc 31.9 g/dL (29.9-35.2); Mean Corpuscular Hemoglobin 28.6 pg (25.9-34.0); Mean Corpuscular Volume 89.6 fL (80.0-94.0); Mean Platelet Volume 10.8 fL (9.5-13.5); Monocytes Absolute Auto 0.7 10^3/uL (0.3-0.8); Monocytes Percent Auto 6.1 % (1.7-12.0); Neutrophils Absolute Auto 6.3 10^3/uL (1.4-6.5); Neutrophils Percent Auto 58.7 % (43.0-75.0); Platelet Count 227 10^3/uL (150-450); Red Blood Count 4.34 10^6/uL (4.70-6.10); Red Cell Distribution Width 14.3 % (11.0-15.0); White Blood Count 10.7 10^3/uL (4.0-11.0)
[2023-06-04 05:07] LABS: Ammonia <10 umol/L (11-32)
[2023-06-04 05:21] LABS: Alanine Aminotransferase 74 U/L (16-63); Albumin Globulin Ratio 1.1; Albumin Level 3.2 g/dL (3.4-5.0); Alkaline Phosphatase 67 U/L (46-116); Anion Gap 11.5; Aspartate Amino Transferase 84 U/L (15-37); Bilirubin Total 0.5 mg/dL (0.2-1.0); Calcium 9.3 mg/dL (8.5-10.1); Carbon Dioxide 26.2 mmol/L (21.0-32.0); Chloride 111 mmol/L (98-107); Estimated GFR (African America >60 (>=60); Estimated GFR (Non-African Ame >60 (>=60); Glucose 83 mg/dL (74-106); Myoglobin 138 ng/mL (16-96); Potassium 3.7 mmol/L (3.5-5.1); Sodium 145 mmol/L (136-145); Total Protein 6.2 g/dL (6.4-8.2); Troponin I High Sensitivity 18.7 pg/mL (4.0-76.1)
[2023-06-04 05:24] LABS: Creatine Kinase 1402 U/L (39-308)
[2023-06-04 05:25] LABS: Creatine Kinase MB 12.62 ng/mL (<=3.60)
[2023-06-04 06:09] LABS: HBsAg Screen Negative (Negative); HCV Ab Non Reactive (Non Reactive); Hep A Ab, IgM Negative (Negative); Hep B Core Ab, IgM Negative (Negative)
[2023-06-04] MEDS: GABAPENTIN 300 MG CAPSULE PO (08:03)
[2023-06-04] MEDS: AMLODIPINE BESYLATE 5 MG TABLET 10 MG PO (08:03)
[2023-06-04] MEDS: BUSPIRONE HCL 10 MG TABLET 5 MG PO (08:03)
[2023-06-04] MEDS: ESCITALOPRAM 10 MG TABLET 20 MG PO (08:03)
[2023-06-04] MEDS: CLONIDINE HCL 0.1 MG TABLET 0.200000000000000011 MG PO (08:04)
--- NOTE | 2023-06-04 08:11 | SWNOTE1 ---
MAJO and casework specialist spoke with pt's sister outside of room yesterday. Pt's sister expressed that pt does need help and he has been to [address] in past as well as [facility] in [place]. He did sign out from [facility]. At this time pt is not in a state of mind to assess and plan for discharge. SW to stop back in today.
--- NOTE | 2023-06-04 08:42 | CM.NOTE ---
Rounds made with Dr. John. Potential discharge today. Follow up with PCP next week.
--- NOTE | 2023-06-04 08:50 | P.DS_ITS ---
DS: Providers Provider Date of admission: 06/03/23 09:14 Primary care physician: LEYDI ACEVES Consults: 06/03/23 06:38 Consult to Pharmacy Routine Consulting Provider: Reason for consultation: Please [place] me when Med Rec is Updated Has provider been notified: No DS: Diagnosis Discharge Diagnosis (1) Altered mental status: Plan Tachycardia, respiratory distress, uncontrolled hypertension, acute hypoxia with O2 saturation of 89% on 2 L secondary to baclofen overdose. Patient is more a wake currently but again still not oriented. Monitor for signs of withdrawal. Lactic acidosis, leukocytosis with left shift consistent with bacterial process, doubt meningitis with no nuchal rigidity noted. Resulting in sepsis. Placed patient on IV antibiotics, possibly pulmonary process with O2 saturation 89% on 2 L, once hydration is achieved findings may show up more on chest x-ray Hypernatremia with acute renal failure at 268% above baseline, his creatinine baseline is 1.04. Creatinine on admission 2.66. Likely secondary to dehydration or complication of baclofen overdose. Hydration as outlined above. Secondary to dehydration-will give 3 L of fluids over the course of this morning. Elevated liver function test-likely related to acute processes as outlined above-check hepatitis panel Rhabdomyolysis-complicating the acute renal failure secondary to the dehydration-monitor levels daily. Level somewhat elevated this morning after repeat from ER, will repeat again early afternoon. History of gout-we will hold off on gout medications with possible complication for the acute renal failure Hypertension-hold off on medications currently will use as needed hydralazine Pain medication-uncertain why he takes it, not found in drug screen will hold off currently on Generalized anxiety disorder will continue with home medications except acute atropine due to sedation Obstruction with residual of over 1000 on postvoid-straight cath for now, could related to just the extreme fluid resuscitation given as outlined above, may need to place longer-term Cuadra catheter Admission status: With the degree of hypoxia acute renal failure, rhabdomyolysis and altered mental status, place patient inpatient status for aggressive fluid resuscitation neurological assessment IV antibiotics frequent laboratory evaluations. Medically necessary treatment will span 2 midnights DS: Summary Hospital Course Hospital Course: Increase to the emergency with altered mental status. Presumed to have had a muscle relaxer overdose. Patient was observed the first 24 hours and his mental status is improved. He is really difficult person to read. He is alert and oriented this morning. He also had some mild hypoxia on admission and elevated white blood cell count with a positive lactate so was placed on antibiotics for possible bronchitis versus aspiration. Also rhabdomyolysis with significant elevation in his CPK. Acute renal failure as well. Patient was given IV hydration over the first day. His creatinine is not quite back to baseline but is much improved and is only 20% above baseline. He is eating well and drinking well. He feels back to his normal self. Denies suicidal ideation. Which is tracking back pain medications that was baclofen to try to relieve his pain. He does get prescriptions for narcotics at least on our list, they were not found in his urine drug screen so I did remove those from his discharge medication list as it does not appear that he is taking them. Medications reviewed. He will follow-up with his PCP [facility] for evaluation of Treatment:for pain wi ht non narcotics Time Spent with Patient Time attestation: Total time spent providing and/or coordinating discharge services: Exam Constitutional Vital Signs, click to edit/add: Last Vital Signs Temp 98.9 F 06/04/23 05:20 Pulse 69 06/04/23 07:00 Resp 20 06/04/23 05:20 BP 144/92 H 06/04/23 05:20 Pulse Ox 97 06/04/23 05:20 O2 Del Method Room Air 06/04/23 07:15 O2 Flow Rate 2 06/03/23 05:19 Documenting provider has reviewed patient's vital signs: yes Common normals: no apparent distress Chest Common normals: inspection of chest normal Respiratory Common normals: normal respiratory effort and no retractions Cardio Common normals: regular rate and regular rhythm GI Common normals: Normal to inspection, nondistended, normoactive bowel sounds present DS: Data Data Completed and Pending Labs on day of discharge: Labs from last 24 hours 06/04/23 06/03/23 06/03/23 04:42 14:35 13:06 WBC 10.7 RBC 4.34 L Hgb 12.4 L Hct 38.9 L MCV 89.6 MCH 28.6 MCHC 31.9 RDW 14.3 Plt Count 227 MPV 10.8 Neut % (Auto) 58.7 Lymph % (Auto) 33.6 [place] % (Auto) 6.1 Eos % (Auto) 0.7 L Baso % (Auto) 0.6 Neut # (Auto) 6.3 Lymph # (Auto) 3.6 [place] # (Auto) 0.7 Eos # (Auto) 0.1 Baso # (Auto) 0.1 Abs Immat Gran (auto) 0.03 Imm/Tot Granulo (auto) 0.3 Sodium 145 Potassium 3.7 Chloride 111 H Carbon Dioxide 26.2 Anion Gap 11.5 BUN 17.0 Creatinine 1.31 H Est GFR ( Amer) >60 Est GFR (Non-Af Amer) >60 BUN/Creatinine Ratio 13.0 Glucose 83 Calcium 9.3 Total Bilirubin 0.5 AST 84 H ALT 74 H Alkaline Phosphatase 67 Ammonia <10 L Total Creatine Kinase 1402 H* 2299 H* CK-MB (CK-2) 12.62 H* 29.76 H* Myoglobin 138 H 417 H* Troponin I High Sens 18.7 42.0 Total Protein 6.2 L Albumin 3.2 L Globulin 3.0 Albumin/Globulin Ratio 1.1 Hepatitis A IgM Ab Negative Hep Bs Antigen Negative Hep B Core IgM Ab Negative Hepatitis C Antibody Non reactive Hepatitis C Interp Comment Discharge Plan Discharge Disposition: Home, Self-Care Condition: Fair Discharge Medications: New amoxicillin-pot clavulanate 875-125 mg tablet 1 tab PO BID Qty: 20 0RF Continued gabapentin [Neurontin] 300 mg capsule 300 mg PO TID allopurinol 100 mg tablet 100 mg PO .QD Patient Comments: TOTAL DOSE IS 400MG QD buspirone 5 mg tablet 5 mg PO BID Vraylar 1.5 mg capsule 1.5 mg PO .QD escitalopram oxalate 20 mg tablet 20 mg PO .QD allopurinol 300 mg tablet 300 mg PO BID tramadol 50 mg tablet 50 mg PO Q6H PRN (Reason: pain) quetiapine 50 mg tablet See Rx Instructions PO .hs Patient Comments: per pt. 50mg with 25mg Rx Instructions: 75 orally HS; colchicine 0.6 mg tablet 0.6 mg PO .every other clonidine HCl 0.1 mg tablet 0.1 mg PO BID celecoxib 100 mg capsule 100 mg PO DAILY PRN (Reason: RA flare) amlodipine 10 mg tablet 10 mg PO QDAY cyclobenzaprine 10 mg tablet 10 mg PO TID PRN (Reason: muscle spasm) Discontinued oxycodone-acetaminophen [Percocet] 5-325 mg tablet 2 tab PO Q6H PRN (Reason: pain (scale score 7-10)) Qty: 10 0RF oxycodone-acetaminophen [Percocet] 5-325 mg tablet 1 tab PO Q6H PRN (Reason: pain (scale score 4-6)) Qty: 10 0RF Rx Instructions: DX: M10.9; to be taken with regular (daily) Percocet for breakthrough pain for a maximum of 4 Percocet tabs (q6h PRN pain daily) baclofen 10 mg tablet 10 mg PO TID Patient Comments: ONE TABLET IN THE AM, ONE TABLET IN THE EVENING AND ONE TABLET BEFORE BEDTIME alprazolam 0.5 mg tablet 0.5 mg PO TID PRN (Reason: anxiety) Activity: increase activity as tolerated Diet: advance to your usual diet Print Language: Slovak Patient Instructions: Amoxicillin/Clavulanate Potassium (By mouth), Depression (GEN) Forms: Portal Instructions Follow Up Appointments: Dr Palak Arthur May @ 2:00 & [facility] [address] June 15 @12:00. Discharge Date/Time: 06/04/23 11:22
[2023-06-04] MEDS: LEVOFLOXACIN IN DEXTROSE 5 % 750 MG/150 ML IV.SOLN 100 MG IV (09:03)
[2023-06-04] MEDS: ALPRAZOLAM 0.5 MG TABLET PO (10:54)
--- NOTE | 2023-06-04 10:54 | SWNOTE1 ---
Addendum entered by Yue Bahena 06/04/23 11:25: continued note pamphlets for [facility] in [place] and a facility in [place]. SW explained that the facility in [place] does have outpt and possibly telehealth. Pt voiced interest in the telehealth. SW advised pt he can call on his own or SW can assist while he is still here. Pt voiced he would like to try with SW. [facility] called [facility] and spoke to intake. She was able to complete an assesment over the phone with pt and SW. Pt answered all questions during assessment. They are going to email pt with the intake information and link. He will be enrolled in the telehealth for Wednesday, Wednesday, and from 12:30-3;30, this is an intense outpt prgoram. They will send link possibly Wednesday, if not Wednesday then Wednesday. SW advised pt to check his email that we provided to the facility. SW also advised pt to reach out to SW on Wednesday if he has not received anything. Pt voiced understanding. MAJO updated nursing. MAJO did ask pt if he was going home alone, he voiced he is going home to shower and then going to his moms. SW asked if he had any intentions of harming himself, he voiced no. MAJO did fax over face sheet and insurance card to [facility]. Original Note: MAJO spoke with pt, he is alert and oriented at this time. MAJO brought
--- NOTE | 2023-06-04 12:20 | SWNOTE1 ---
MAJO faxed over face sheet and insurance card to [facility].
--- NOTE | 2023-06-07 14:34 | CM.DCFOLLOWU ---
Person spoke with: Nick How are you feeling? Feeling better How is your pain? No pain Did you understand your discharge instructions? Yes Do you have any questions about your discharge instructions? No Were you given any prescriptions at discharge? Yes Were you able to get your prescriptions filled? Yes Do you understand how to take your medications as ordered? Yes Do you have any questions about your follow up appointment and do you plan to keep your follow up appointment? No they are scheduled and I will go to appts. Is there anything else that you would like to discuss? No Questions/Comments/Concerns/Other:
== END 2023-06-04 11:22 | disposition home or self-care (01) | DRG 720 ==
LOC: ER 06-03 00:14 → ICU 06-03 00:50
PROVIDERS: Registered Nurse; Admitting Provider Family Medicine; Emergency Provider Emergency Medicine; PCP Family Medicine; Visit Provider Family Medicine
DX: A41.9 Sepsis, unspecified organism (principal); N17.9 Acute kidney failure, unspecified; E87.0 Hyperosmolality and hypernatremia; J69.0 Pneumonitis due to inhalation of food and vomit; E87.20 Acidosis, unspecified; R06.03 Acute respiratory distress; T42.8X1A Poisoning by antiparkinsonism drugs and other central muscle-tone depressants, accidental (unintentional), initial encounter; R09.02 Hypoxemia; R79.89 Other specified abnormal findings of blood chemistry; M62.82 Rhabdomyolysis; E86.0 Dehydration; M06.9 Rheumatoid arthritis, unspecified; I10 Essential (primary) hypertension; F41.1 Generalized anxiety disorder; M10.9 Gout, unspecified; N13.9 Obstructive and reflux uropathy, unspecified; Z79.899 Other long term (current) drug therapy; F17.220 Nicotine dependence, chewing tobacco, uncomplicated; Z96.659 Presence of unspecified artificial knee joint; Z98.890 Other specified postprocedural states
CPT/HCPCS: 36415; 51701; 51798; 70450; 80053; 80074; 80179; 80307; 80320; 80329; 81001; 82140; 82550; 82553; 83605; 83735; 83874; 83880; 84100; 84145; 84484; 85025; 85610; 87040; 87070; 93005; 94667; 94668; 94761; 96361; 96365; 96366; 96368; 96375; 96376; 99285

== ENCOUNTER 2023-07-03 13:10 | Emergency (ER) | payer OTHER, SELFPAY ==
[2023-07-03 13:15] VITALS: BP 140/90; PULSE 84; TEMP 36.4; O2SAT 99; BMI 27.6
--- OUTSIDE RECORDS SUMMARY | 2023-07-03 13:20 | XMS_ITS | CCD ---
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 Facility: [facility] Address: [address] [place] [address] Performed By: #### Chloé BETHEA1, 1919-09, 1741-07, 1750-08 #### [facility] CLIA [id number] [address] [place] [address] 50341 Platelet mean volume (Bld) [Entitic vol] 9.7 fL Normal 9.0-12.7 [facility] Comment on above: Order Comment: Speci men Type: BLOOD SPECIMEN Ordering Facility: [facility] Address: [address] [place] [address] Performed By: #### Chloé BETHEA1, 1919-09, 1741-07, 1750-08 #### [facility] CLIA [id number] [address] [place] [address] 79162 Platelets (Bld) [#/Vol] 442 10*3/uL High 150-400 [facility] Comment on above: Order Comment: Speci men Type: BLOOD SPECIMEN Ordering Facility: [facility] Address: [address] [place] [address] Performed By: #### C RET1, 1919-09, 1741-07, 1750-08 #### [facility] CLIA [id number] [address] [place] [address] 08749 RBC (Bld) [#/Vol] 4.99 10*6/uL Normal 4.20-6.00 [facility] Comment on above: Order Comment: Speci men Type: BLOOD SPECIMEN Ordering Facility: [facility] Address: [address] [place], [place] [id number] Performed By: #### C RET1, 1919-09, 1741-07, 1750-08 #### [facility] CLIA [id number] [address] [place] [address] 37587 WBC (Bld) [#/Vol] 8.72 10*3/uL Normal 3.70-11.00 [facility] Comment on above: Order Comment: Speci men Type: BLOOD SPECIMEN Ordering Facility: [facility] Address: [address] [place] [address] Performed By: #### C RET1, 1919-09, 1741-07, 1750-08 #### [facility] CLIA [id number] [address] [place] [address] 82525 CREATININE BLDon 03-04-2023 Creatinine [Mass/Vol] 1.21 mg/dL Normal 0.73-1.22 [facility] Comment on above: Order Comment: Speci men Type: BLOOD SPECIMEN Ordering Facility: [facility] Address: [address] [place] [address] Performed By: #### C RET1, 1919-09, 1741-07, 1750-08 #### [facility] CLIA [id number] [address] [place] [address] 00935 Creatinine and Glomerular filtration rate.predicted panel (S/P/Bld) 81 mL/min/1.73m??? Normal >=60 [facility] Comment on above: Order Comment: Speci men Type: BLOOD SPECIMEN Ordering Facility: [facility] Address: [address] [place] [address] Result Comment: Jyoti mated Glomerular Filtration Rate [...] reflect actual GFR. Performed By: #### C RET1, 1919-09, 1741-07, 1750-08 #### [facility] CLIA [id number] [address] [place] [address] 43114 CRP SerPl-mCncon 03-04-2023 CRP [Mass/Vol] 4.2 mg/dL High <0.9 [facility] Comment on above: Order Comment: Speci men Type: BLOOD SPECIMEN Ordering Facility: [facility] Address: [address] [place] [address] Performed By: #### 1 988-5 #### [facility] CLIA [id number] [address] [facility] [place] [address] [place] ESR Westergren method (Bld) [Velocity]on 03-04-2023 ESR (Bld) [Velocity] 29 mm/h High 0-15 [facility] Comment on above: Order Comment: Speci men Type: BLOOD SPECIMEN Ordering Facility: [facility] Address: [address] [place] [address] Performed By: #### C NEEMA1, 1919-09, 1741-07, 1750-08 #### [facility] CLIA [id number] [address] [place] [address] 04403 Urate SerPl-mCncon Urate [Mass/Vol] 14.6 mg/dL High 4.0-8.1 [facility] Comment on above: Order Comment: Speci men Type: BLOOD SPECIMEN Ordering Facility: [facility] Address: [address] [place] [address] Performed By: #### 3 084-1 #### [facility] CLIA [id number] [address] [place] [address] 66262 Consent for Treatmenton 12-2 Consent for Treatment [id number]#1.00TIFF Normal [facility] Discharge Instructionson Discharge Instructions [id number]#[id number] Normal [facility] ED Clinical Summaryon 2022 ED Clinical Summary (Inserted Image. Jodi ble to display) [address] [address] ED Clinical Summary Person Information Name: NICK WRAY/[facility] Age: 32 Years : 1990 Sex: Male Language: Persian PCP: LEYDI ACEVES MD Marital Status: MRN: [...] 15:31:03 02/24/2023 15:31:03 02/24/2023 15:31:03 ADDRESS: [address] [facility] [id number] PHYS DOC NOTES: MEDICAL INFORMATION: Prescriptions Given: New Medications [id number], [address] [place], [place] [id number], [phone] predniSONE (predniSONE 10 mg Tab) 1 Dose [...] pain. PATIENT EDUCATION INFORMATION: Instructions: Knee Effusion, Wqjp-dr-Nmub Follow up: With: Address: When: LEYDI ACEVES [address] [place] [address] [facility] () In 3 days 02/27/2023 Comments: Take the steroids once daily as prescribed to completed the course. Please follow-up with your primary care doctor in the next 2 to 3 days for further evaluation management. Please return to ED for any worsening symptoms. Follow-up with your orthopedic doctor for further evaluation management. DIAGNOSIS: Swelling of joint, knee, right Normal [facility] ED Note-Physicianon 02-25-20 ED Note-Physician Basic Information Time Seen: Ladi Huber DO 02/24/2023 14:07 Chief Complaint Pt had knee surgery for scope to clean out gout in [place] by a doctor out of [place]. Pt. states has had fluiding building up in R knee since Wednesday. Called ortho doc who did surgery and told to go to ER to get fluid drained. Attempted to go to [place] History of Present Illness Patient is a 30-year-old male with past medical history of rheumatoid arthritis, gout presenting to the ED for evaluation of swelling to the right knee. Patient states he had a scope for gout in [place] on Wednesday, since then has been having [...] and Complexity of Problems Differential Diagnosis: [] [facility] Data External documents reviewed: [] My [...] days., # 75 tab(s), Refills(s) 0, Pharmacy: [id number], 187, cm, 02/24/23 12:43:00 EST, Height/Length Dosing... Disposition Plan Discharge Prescription List Prescriptions predniSONE 10 mg Tab, 1 -, Oral, As Directed Follow-up With When Contact Information LEYDI ACEVES In 3 days 02/27/2023 EST [address] [place] [id number] (1) Additional Instructions: Take the steroids once daily as prescribed to completed the course. Please follow-up with your primary care doctor in the next 2 to 3 days for further evaluation management. Please return to ED for any worsening symptoms. Follow-up with your orthopedic doctor for further evaluation management. Patient Education Knee Effusion, Hddj-mw-Qsht Problem List/Past Medical History Ongoing No qualifying [...] 1 tab(s) (more content not included)... Normal [facility] Comment on above: Result Comment: Elec tronically [...] by your doctor. General instructions ? Take hmxg-cgg-ecqyagl and prescription medicines only as told by [...] bend and move your knee. ? Take gucy-nlz-zjjoune and prescription medicines only as told by your doctor. ? If you have a brace or an immobilizer, wear it as told by your doctor. This information is not intended to replace advice given to you by your health care provider. Make sure you discuss any questions you have with your health care provider. Document Revised: 10/16/2020 Document Reviewed: 10/16/2020 [employer] Patient Education ? 2022 [employer] Normal [facility] ED Patient Summaryon 023 ED Patient Summary (Inserted Image. Jodi ble to display) [place] [id number] Patient Discharge Instructions Person Information Name: NICK WRAY Age: 32 Years Arrival Date: 02/24/2023 12:18:34 Discharge Diagnosis: Swelling of joint, knee, right Primary Care Physician: LEYDI ACEVES MD Provider Information Primary Provider: Ladi Huber DO Advanced Medical Records Administrator:None The exam and treatment you received in the Emergency Department were for an urgent problem and are not intended as complete care. It is important that you follow up with a doctor, nurse practitioner, or physician?s hygiene assistant for ongoing care. If your symptoms become worse or you do not improve as expected and you are unable to reach your usual health care provider, you should return to the Emergency Department. We are available 24 hours a day. NICK WRAY has been given the following list of patient education materials, prescriptions and follow-up instructions: Follow-up Instructions: With: Address: When: LEYDI ACEEVS [address] [place] [address] [facility] (1) In 3 days 02/27/2023 Comments: Take [...] participating provider. Patient Education Materials: Knee Effusion, Neql-fn-Imdc A MESSAGE TO ALL PATIENTS REGARDING OPIOIDS PRESCRIPTION OPIOIDS: WHAT YOU NEED TO KNOW Prescription opioids can be used to help relieve jejaphiv-za-tbdzes pain and are often prescribed following a [...] Administration (www.fd (more content not included)... Normal [facility] Crystals, Fluidson 3 Crystals,Fluid Positive Abnormal NEG [facility] Comment on above: Result Comment: FEW INTRACELLULAR AND MANY EXTRACELLULAR URIC ACID CRYSTALS Performed By: #### F LCRYS #### [facility] [address] [place] [address] Reconstructive Dentist: Krish Abdi MD [facility] [address] [place] [address] Reconstructive Dentist: Drew Godoy MD #### FLDCT #### [facility] [address] [place] [address] Reconstructive Dentist: Drew Godoy MD Pathologist Review: ELECTRONICALLY KEN Jovita GODOY MD [facility] Comment on above: Performed By: #### F LCRYS #### [facility] [address] [place] [address] Reconstructive Dentist: Krish Abdi MD [facility] [address] [place] [address] Reconstructive Dentist: Drew Godoy MD #### FLDCT #### [facility] [address] [place] [address] Reconstructive Dentist: Drew Godoy MD Fluid Cell Count and Diffon 02-19-2023 Basophils/100 WBC (Bld) 0 % Normal 0 [facility] Comment on above: Performed By: #### F LCRYS #### [facility] [address] [place] [address] Reconstructive Dentist: Krish Abdi MD [facility] [address] [place] [address] Reconstructive Dentist: Drew Godoy MD #### FLDCT #### [facility] [address] [place] [address] Reconstructive Dentist: Drew Godoy MD Eosinophils/100 WBC (Bld) 0 % Normal 0 [facility] Comment on above: Performed By: #### F LCRYS #### [facility] [address] [place] [address] Reconstructive Dentist: Krish Abdi MD [facility] [address] [place] [address] Reconstructive Dentist: Drew Godoy MD #### FLDCT #### [facility] [address] [place] [address] Reconstructive Dentist: Drew Godoy MD Lymphocytes/100 WBC (Bld) 10 % Normal [facility] Comment on above: Performed By: #### F LCRYS #### [facility] [address] [place] [address] Reconstructive Dentist: Krish Abdi MD [facility] [address] [place] [address] Reconstructive Dentist: Drew Godoy MD #### FLDCT #### [facility] [address] [place] [address] Reconstructive Dentist: Drew Godoy MD [place]/Macrophage 0 % [facility] Comment on above: Performed By: #### F LCRYS #### [facility] [address] [place] [address] Reconstructive Dentist: Krish Abdi MD [facility] [address] [place] [address] Reconstructive Dentist: Drew Godoy MD #### FLDCT #### [facility] [address] [place] [address] Reconstructive Dentist: Drew Godoy MD Neutrophils/100 WBC (Bld) 90 % Normal [facility] Comment on above: Performed By: #### F LCRYS #### [facility] [address] [place] [address] Reconstructive Dentist: Krish Abdi MD [facility] [address] [place] [address] Reconstructive Dentist: Drew Godoy MD #### FLDCT #### [facility] [address] [place] [address] Reconstructive Dentist: Drew Godoy MD RBC (Bld) [#/Vol] 0.44715 10*6/uL Normal [facility] Comment on above: Performed By: #### F LCRYS #### [facility] [address] [place] [address] Reconstructive Dentist: Krish Adbi MD [facility] [address] [place] [address] Reconstructive Dentist: Drew Godoy MD #### FLDCT #### [facility] [address] [place] [address] Reconstructive Dentist: Drew Godoy MD WBC (Bld) [#/Vol] 9.96 10*3/uL Normal [facility] Comment on above: Performed By: #### F LCRYS #### [facility] [address] [place] [address] Reconstructive Dentist: Krish Abdi MD [facility] [address] [place] [address] Reconstructive Dentist: Drew Godoy MD #### FLDCT #### [facility] [address] [place] [place] [address] Reconstructive Dentist: Drew Godoy MD Appearance (U) Cloudy [facility] Comment on above: Performed By: #### F LCRYS #### [facility] [address] [place] [address] Reconstructive Dentist: Krish Abdi MD [facility] [address] [place] [address] Reconstructive Dentist: Drew Godoy MD #### FLDCT #### [facility] [address] [place] [address] Reconstructive Dentist: Drew Godoy MD Color (U) Pale Yellow [facility] Comment on above: Performed By: #### F LCRYS #### [facility] [address] [place] [address] Reconstructive Dentist: Krish Abdi MD [facility] [address] [facility] [place] [address] Reconstructive Dentist: Derw Godoy MD #### FLDCT #### [facility] [address] [place] [address] Reconstructive Dentist: Drew Godoy MD Type of Specimen .FLUID Normal [facility] Comment on above: Performed By: #### F LCRYS #### [facility] [address] [place], [place] [id number] Reconstructive Dentist: Krish Abdi MD [facility] [address] [place] [address] Reconstructive Dentist: Drew Godoy MD #### FLDCT #### [facility] [address] [place] [address] Reconstructive Dentist: Drew Godoy MD [facility] 11-13-2022 CNPN Telephone (ORQ) -- NICK WRAY ([id number]) 1990 M Date Time Provider Department 11/13/22 DELMY BOYLE During your visit today, we recorded the following information about you: Madonna Mitchell 11/13/2022 12:07 PM Signed Nick Wray is calling Delmy Boyle MD today stating that his PCP that is with [facility] is having technical difficulties and that their version of mychart is down along with the phone system. He needs a refill of a tapered prednisone sent to [facility] in [place], . Please advise. Patient has been identified by name and birthdate. Duration of symptoms: N/A Person calling: self Call patient at: at home [phone] (home) [phone] (cell) Was an appointment scheduled: No Closing statement: Results or non-symptom based questions: Thank you for calling [facility], your call will be returned within the next business day. Madonna Ceen, Delmy D, MD 11/13/2022 7:10 PM Signed The following [...] Fully Assessed Reason for Visit: Patient Request [1696] Order(s):predniSONE (DELTASONE) 5 mg tabletTake 6 tab [...] Encounter Status:Closed by DELMY BOYLE on 11/13/22 [facility] CNOVon 08-14-2022 CNOV Office Visit (RHEUAV ) -- NICK WRAY ([id number]) 1990 M Date Time Provider Department 08/14/22 11:40 AM DELMY BOYLE [place] During your visit today, we recorded the following information about you: Pulse Respiration Blood pressure Weight 94/minute 16/minute 132/93 99.8 kg Delmy Boyel MD 08/14/2022 5:15 PM Signed DX: chronic tophaceous gout, 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 Polyarthritis with several nodules mainly [...] arthritic flares once every 4 months. 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 Jaime in [place] who did diagnostic knee aspiration which according to patient was positive for uric acid crystals. Treated with steroids and continued allopurinol. He has not seen Dr. Jaime since 2014. In 2014, he was hospitalized in [place] for acute polyarthritis. Saw shellfish bed worker while in hospital who told him that he possibly had RA. Discharged on steroids. His PCP switched him from allopurinol to Uloric Jan 2017. He also takes colchicine prn. No reduction in frequency or severity of his joint flares with Uloric. In 2017, he has been hospitalized 7-8 times for acute joint flares. Each time he is treated with steroids. Hospitalized at [facility] Apr 2017 for acute flare [...] shoulder surgery by Dr. Tc Coffey at [facility]. No post op complications. Currently on PT - still working on shoulder ROM. 4. GENERAL HEALTH MAINTENANCE -continue follow up on his CKD with nephrology -he will follow up with his PCP for his general health issues RTC in 7 mon, sooner if needed INTERVAL HISTORY -at [facility], he was advised to increase allopurinol from 300 mg BID to 350 mg qam and 300 mg qpm but he is actually taking allopurinol 400 mg qam and 300 qpm instead. Tolerating this higher dose without issues. -He stopped drinking Nov 2021. He started drinking some since [facility]. -he had 2 flares of joint [...] 30 min (more content not included)... Normal [facility] ALT SerPl-cCncon 08-12-2022 ALT [Catalytic activity/Vol] 30 U/L Normal 10-54 [facility] Comment on above: Order Comment: Speci men Type: BLOOD SPECIMEN Ordering Facility: [facility] Address: [address] [place] [address] Performed By: #### C RET1, 1920-8, 1742-6, 1751-7 #### [facility] CLIA [id number] [address] [place] [address]2531 AST SerPl-cCncon 08-12-2022 AST [Catalytic activity/Vol] 28 U/L Normal 14-40 [facility] Comment on above: Order Comment: Chiquii men Type: BLOOD SPECIMEN Ordering Facility: [facility] Address: [address] [place] [address] Performed By: #### C RET1, 8, 1741-6, 17503-07 #### [facility] CLIA [id number] [address] [place] [address] Albumin SerPl-mCncon 023 Albumin [Mass/Vol] 4.5 g/dL Normal 3.9-4.9 [facility] Comment on above: Order Comment: Speci men Type: BLOOD SPECIMEN Ordering Facility: [facility] Address: [address] [place] [address] Performed By: #### C RET1, 1919-09, 1741-07, 1750-08 #### [facility] CLIA [id number] [address] [place] [address] CBC W Auto Differential pane l (Bld)on 08-12-2022 Basophils (Bld) [#/Vol] 0.00 10*3/uL Normal <0.11 [facility] Comment on above: Order Comment: Speci men Type: BLOOD SPECIMEN Ordering Facility: [facility] Address: [address] [place] [address] Performed By: #### 5 7021-8 #### [facility] CLIA [id number] [address] [place] [address] LAB CLIA [id number] [address] [place], [place] [address] [place] Basophils/100 WBC (Bld) 0.0 % Normal [facility] Comment on above: Order Comment: Speci men Type: BLOOD SPECIMEN Ordering Facility: [facility] Address: [address] [place], [place] [id number] Performed By: #### 5 7021-8 #### [facility] CLIA [id number] [address] [place], [place] [id number] [facility] CLIA [id number] [address] [place] [address] [place] Differential cell count method Nom (Bld) Manual Normal [facility] Comment on above: Order Comment: Speci men Type: BLOOD SPECIMEN Ordering Facility: [facility] Address: [address] [place] [address] Performed By: #### 5 7021-8 #### [facility] CLIA [id number] [address] [place] [address] LAB CLIA [id number] [address] [place] [address] [place] Eosinophils (Bld) [#/Vol] 0.08 10*3/uL Normal <0.46 [facility] Comment on above: Order Comment: Speci men Type: BLOOD SPECIMEN Ordering Facility: [facility] Address: [address] [place] [address] Performed By: #### 5 7021-8 #### [facility] CLIA [id number] [address] [place] [address] LAB CLIA [id number] [address] [place] [address] [place] Eosinophils/100 WBC (Bld) 0.9 % Normal [facility] Comment on above: Order Comment: Speci men Type: BLOOD SPECIMEN Ordering Facility: [facility] Address: [address] [place] [address] Performed By: #### 5 7021-8 #### [facility] CLIA [id number] [address] [place] [address] LAB CLIA [id number] [address] [place] [address] [place] Erythrocyte distribution width (RBC) [Ratio] 14.6 % Normal 11.5-15.0 [facility] Comment on above: Order Comment: Speci men Type: BLOOD SPECIMEN Ordering Facility: [facility] Address: [address] [place] [address] Performed By: #### 5 7021-8 #### [facility] CLIA [id number] [address] [place] [address] [facility] CLIA [id number] [address] [place] [address] [place] Hematocrit (Bld) [Volume fraction] 45.7 % Normal 39.0-51.0 [facility] Comment on above: Order Comment: Speci men Type: BLOOD SPECIMEN Ordering Facility: [facility] Address: [address] [place] [address] Performed By: #### 5 7021-8 #### [facility] CLIA [id number] [address] [place] [address] LAB CLIA [id number] [address] [place] [address] [place] Hemoglobin (Bld) [Mass/Vol] 15.3 g/dL Normal 13.0-17.0 [facility] Comment on above: Order Comment: Speci men Type: BLOOD SPECIMEN Ordering Facility: [facility] Address: [address] [place], [place] [address] Performed By: #### 5 7021-8 #### [facility] CLIA [id number] [address] [place] [address] LAB CLIA [id number] [address] [place] [address] [place] Lymphocytes (Bld) [#/Vol] 3.27 10*3/uL Normal 1.00-4.00 [facility] Comment on above: Order Comment: Speci men Type: BLOOD SPECIMEN Ordering Facility: [facility] Address: [address] [place] [address] Performed By: #### 5 7021-8 #### [facility] CLIA [id number] [address] [place] [address] LAB CLIA [id number] [address] [place] [address] [place] Lymphocytes/100 WBC (Bld) 37.7 % Normal [facility] Comment on above: Order Comment: Speci men Type: BLOOD SPECIMEN Ordering Facility: [facility] Address: [address] [address] Performed By: #### 5 7021-8 #### [facility] CLIA [id number] [address] [place] [address] LAB CLIA [id number] [address] [place] [address] [place] MCH (RBC) [Entitic mass] 29.4 pg Normal 26.0-34.0 [facility] Comment on above: Order Comment: Speci men Type: BLOOD SPECIMEN Ordering Facility: [facility] Address: [address] [address] Performed By: #### 5 7021-8 #### [facility] CLIA [id number] [address] [place] [address] LAB CLIA [id number] [address] [place] [address] [place] MCHC (RBC) [Mass/Vol] 33.5 g/dL Normal 30.5-36.0 [facility] Comment on above: Order Comment: Speci men Type: BLOOD SPECIMEN Ordering Facility: [facility] Address: [address] [address] Performed By: #### 5 7021-8 #### [facility] CLIA [id number] [address] [place] [address] LAB CLIA [id number] [address] [place] [address] [place] MCV (RBC) [Entitic vol] 87.9 fL Normal 80.0-100.0 [facility] Comment on above: Order Comment: Speci men Type: BLOOD SPECIMEN Ordering Facility: [facility] Address: [address] [place] [address] Performed By: #### 5 7021-8 #### [facility] CLIA [id number] [address] [place] [address] LAB CLIA [id number] [address] [address] [place] Monocytes (Bld) [#/Vol] 0.23 10*3/uL Normal <0.87 [facility] Comment on above: Order Comment: Speci men Type: BLOOD SPECIMEN Ordering Facility: [facility] Address: [address] [place] [address] Performed By: #### 5 7021-8 #### [facility] CLIA [id number] [address] [place] [address] LAB CLIA [id number] [address] [place] [address] [place] Monocytes/100 WBC (Bld) 2.6 % Normal [facility] Comment on above: Order Comment: Speci men Type: BLOOD SPECIMEN Ordering Facility: [facility] Address: [address] [place] [address] Performed By: #### 5 7021-8 #### [facility] CLIA [id number] [address] [place] [address] LAB CLIA [id number] [address] [place] [address] [place] Neutrophils (Bld) [#/Vol] 5.10 10*3/uL Normal 1.45-7.50 [facility] Comment on above: Order Comment: Speci men Type: BLOOD SPECIMEN Ordering Facility: [facility] Address: [address] [place], [place] [address] Performed By: #### 5 7021-8 #### [facility] CLIA [id number] [address] [place] [address] LAB CLIA [id number] [address] [place] [address] [place] Neutrophils/100 WBC (Bld) 58.8 % Normal [facility] Comment on above: Order Comment: Speci men Type: BLOOD SPECIMEN Ordering Facility: [facility] Address: [address] [id number] Performed By: #### 5 7021-8 #### [facility] CLIA [id number] [address] [place] [address] LAB CLIA [id number] [address] [place] [address] [place] Nucleated RBC (Bld) [#/Vol] 10*3/uL Normal <0.01 [facility] Comment on above: Order Comment: Speci men Type: BLOOD SPECIMEN Ordering Facility: [facility] Address: [address] Performed By: #### 5 7021-8 #### [facility] CLIA [id number] [address] [place] [address] LAB CLIA [id number] [address] [place] [address] [place] Nucleated RBC/100 WBC (Bld) [Ratio] 0.0 /100 WBC Normal [facility] Comment on above: Order Comment: Speci men Type: BLOOD SPECIMEN Ordering Facility: [facility] Address: [address] [place] [address] Performed By: #### 5 7021-8 #### [facility] CLIA [id number] [address] [place] [address] LAB CLIA [id number] [address] [place] [address] [place] Platelet mean volume (Bld) [Entitic vol] 10.1 fL Normal 9.0-12.7 [facility] Comment on above: Order Comment: Speci men Type: BLOOD SPECIMEN Ordering Facility: [facility] Address: [address] [address] Performed By: #### 5 7021-8 #### [facility] CLIA [id number] [address] [place] [address] LAB CLIA [id number] [address] [place] [address] [place] Platelets (Bld) [#/Vol] 289 10*3/uL Normal 150-400 [facility] Comment on above: Order Comment: Speci men Type: BLOOD SPECIMEN Ordering Facility: [facility] Address: [address] [place] [address] Performed By: #### 5 7021-8 #### [facility] CLIA [id number] [address] [place] [address] LAB CLIA [id number] [address] [place] [address] [place] Platelets Estimate (Bld) [#/Vol] Adequate Normal [facility] Comment on above: Order Comment: Speci men Type: BLOOD SPECIMEN Ordering Facility: [facility] Address: [address] [place], [place] [address] Performed By: #### 5 7021-8 #### [facility] CLIA [id number] [address] [place] [address] LAB CLIA [id number] [address] [place] [address] [place] RBC (Bld) [#/Vol] 5.20 10*6/uL Normal 4.20-6.00 [facility] Comment on above: Order Comment: Speci men Type: BLOOD SPECIMEN Ordering Facility: [facility] Address: [address] [place] [address] Performed By: #### 5 7021-8 #### [facility] CLIA [id number] [address] [place] [address] LAB CLIA [id number] [address] [place] [address] [place] RED CELL MORPH Reviewed: unremarkable Normal [facility] Comment on above: Order Comment: Speci men Type: BLOOD SPECIMEN Ordering Facility: [facility] Address: [address] [place] [address] Performed By: #### 5 7021-8 #### [facility] CLIA [id number] [address] [place] [address] LAB CLIA [id number] [address] [place] [address] [place] WBC (Bld) [#/Vol] 8.67 10*3/uL Normal 3.70-11.00 [facility] Comment on above: Order Comment: Speci men Type: BLOOD SPECIMEN Ordering Facility: [facility] Address: [address] [place], [place] [id number] Performed By: #### 5 7021-8 #### [facility] CLIA [id number] [address] [place] [address] LAB CLIA [id number] [address] [place] [address] [place] CREATININE BLDon 08-12-2022 Creatinine [Mass/Vol] 1.28 mg/dL High 0.73-1.22 [facility] Comment on above: Order Comment: Speci men Type: BLOOD SPECIMEN Ordering Facility: [facility] Address: [address] [place] [address] Performed By: #### Chloé BETHEA1, 1919-09, 1741-6, 1750-08 #### [facility] CLIA [id number] [address] [place] [address] ESTIMATED GLOMERULAR FILTRATION RATE 76 mL/min/1.73m??? Normal >=60 [facility] Comment on above: Order Comment: Speci men Type: BLOOD SPECIMEN Ordering Facility: [facility] Address: [address] [place] [address] Result Comment: Jyoti mated Glomerular Filtration Rate [...] accurately reflect actual GFR. Performed By: #### Chloé BETHEA1, 1919-09, 1741-07, 1750-08 #### [facility] CLIA [id number] [address] [place] [address] CRP SerPl-mCncon 08-12-2022 CRP [Mass/Vol] mg/L Normal <0.9 [facility] Comment on above: Order Comment: Speci men Type: BLOOD SPECIMEN Ordering Facility: [facility] Address: [address] [place] [address] Performed By: #### C RET1, 1919-09, 1741-07, 1750-08 #### [facility] CLIA [id number] [address] [place], [place] [address] ESR Westergren method (Bld) [Velocity]on 08-12-2022 ESR (Bld) [Velocity] 5 mm/h Normal 0-15 [facility] Comment on above: Order Comment: Speci men Type: BLOOD SPECIMEN Ordering Facility: [facility] Address: [address] [place], [place] [id number] Performed By: #### 4 537-7 #### [facility] CLIA [id number] [address] [place] [address] [place] Urate SerPl-mCncon 3 Urate [Mass/Vol] 9.2 mg/dL High 4.0-8.1 [facility] Comment on above: Order Comment: Speci men Type: BLOOD SPECIMEN Ordering Facility: [facility] Address: [address] [place] [address] Performed By: #### C RET1, 1919-09, 1741-07, 1750-08 #### [facility] CLIA [id number] [address] [place] [address] CBC AUTO DIFFon 06-28-2022 BASO # 0.0 103/ul Normal 0.0-0.1 [facility] Comment on above: Performed By: #### C BC #### [facility] [address] [place] [address] Dr. Nilay Gibbs Basophils/100 WBC (Bld) 0.2 % Normal 0.2-2.0 [facility] Comment on above: Performed By: #### C BC #### [facility] [address] [place] [address] Dr. Nilay Gibbs EO # 0.0 103/ul Normal 0.0-0.7 [facility] Comment on above: Performed By: #### C BC #### [facility] [address] [place] [address] Dr. Nilay Gibbs Eosinophils/100 WBC (Bld) 0.3 % Critically low 0.9-7.0 [facility] Comment on above: Performed By: #### C BC #### [facility] [address] [place] [address] Dr. Nilay Gibbs Erythrocyte distribution width (RBC) [Ratio] 13.9 % Normal 11.0-15.0 [facility] Comment on above: Performed By: #### C BC #### [facility] [address] [place] [address] Dr. Nilay Gibbs Hematocrit (Bld) [Volume fraction] 39.8 % Critically low 42.0-54.0 [facility] Comment on above: Performed By: #### C BC #### [facility] [address] [place] [address] Dr. Nilay Gibbs Hemoglobin (Bld) [Mass/Vol] 13.2 g/dL Critically low 14.0-18.0 [facility] Comment on above: Performed By: #### C BC #### [facility] [address] [place] [address] Dr. Nilay Gibbs IG # 0.04 10e3/ul Critically high 0.00-0.03 [facility] Comment on above: Performed By: #### C BC #### [facility] [address] [place] [address] Dr. Nilay Gibbs IG % 0.4 % Normal 0.0-0.5 [facility] Comment on above: Performed By: #### C BC #### [facility] [address] [place] [address] Dr. Nilay Gibbs LYMPH # 1.8 103/ul Normal 1.2-3.8 [facility] Comment on above: Performed By: #### C BC #### [facility] [address] [place] [address] Dr. Nilay Gibbs Lymphocytes/100 WBC (Bld) 17.5 % Critically low 20.5-60.0 [facility] Comment on above: Performed By: #### C BC #### [facility] [address] [place] [address] Dr. Nilay Gibbs MANUAL DIFF REQ NO Normal [facility] Comment on above: Performed By: #### C BC #### [facility] [address] [place] [address] Dr. Nilay Gibbs MCH (RBC) [Entitic mass] 29.3 pg Normal 25.9-34.0 [facility] Comment on above: Performed By: #### C BC #### [facility] [address] [place] [address] Dr. Nilay Gibbs MCHC (RBC) [Mass/Vol] 33.2 g/dL Normal 29.9-35.2 [facility] Comment on above: Performed By: #### C BC #### [facility] [address] [place] [address] Dr. Nilay Gibbs MCV (RBC) [Entitic vol] 88.4 fL Normal 80.0-94.0 [facility] Comment on above: Performed By: #### C BC #### [facility] [address] [place] [address] Dr. Nilay Gibbs MONO # 0.9 103/ul Critically high 0.3-0.8 [facility] Comment on above: Performed By: #### C BC #### [facility] [address] [place] [address] Dr. Nilay Gibbs Monocytes/100 WBC (Bld) 9.4 % Normal 1.7-12.0 [facility] Comment on above: Performed By: #### C BC #### [facility] [address] [place] [address] Dr. Nilay Gibbs NEUT # 7.2 103/ul Critically high 1.4-6.5 [facility] Comment on above: Performed By: #### C BC #### [facility] [address] [place] [address] Dr. Nilay Gibbs Neutrophils/100 WBC (Bld) 72.2 % Normal 43.0-75.0 [facility] Comment on above: Performed By: #### C BC #### [facility] [address] [place] [address] Dr. Nilay Gibbs Platelet mean volume (Bld) [Entitic vol] 9.6 fL Normal 9.5-13.5 [facility] Comment on above: Performed By: #### C BC #### [facility] [address] [place] [address] Dr. Nilay Gibbs PLT 356 103/ul Normal 150-450 [facility] Comment on above: Performed By: #### C BC #### [facility] [address] [place] [address] Dr. Nilay Gibbs RBC 4.50 106/ul Critically low 4.70-6.10 [facility] Comment on above: Performed By: #### C BC #### [facility] [address] [place] [address] Dr. Nilay Gibsb WBC 10.0 103/ul Normal 4.0-11.0 [facility] Comment on above: Performed By: #### C BC #### [facility] [address] [place] [address] Dr. Nilay Gibbs PROF CHEM 8 (BAS METB)on Anion gap [Moles/Vol] 12.4 mmol/L Normal [facility] Comment on above: Performed By: #### A MM #### [facility] [address] [place] [address] Dr. Nilay Gibbs Calcium [Mass/Vol] 9.4 mg/dL Normal 8.5-10.1 [facility] Comment on above: Performed By: #### A MM #### [facility] [address] [place] [address] Dr. Nilay Gibbs Chloride [Moles/Vol] 105 mmol/L Normal 98-107 [facility] Comment on above: Performed By: #### A MM #### [facility] [address] [address] [address] Nilay Gibbs CO2 [Moles/Vol] 25.6 mmol/L Normal 21.0-32.0 [facility] Comment on above: Performed By: #### A MM #### [facility] [address] [address] [address] Nilay Gibbs Creatinine [Mass/Vol] 1.18 mg/dL Normal 0.70-1.30 [facility] Comment on above: Performed By: #### A MM #### [facility] [address] [place] [address] Dr. Nilay Gibbs EGFR-AF PANAMANIAN >60 Normal >=60 [facility] Comment on above: Performed By: #### A MM #### [facility] [address] [place] [address] Dr. Nilay Gibbs EGFR-NON AF PANAMANIAN >60 Normal >=60 [facility] Comment on above: Performed By: #### A MM #### [facility] [address] [address] [address] Nilay Gibbs Glucose [Mass/Vol] 125 mg/dL Critically high 74-106 [facility] Comment on above: Performed By: #### A MM #### [facility] [address] [place] [address] Dr. Nilay Gibbs Potassium [Moles/Vol] 4.3 mmol/L Normal 3.5-5.1 [facility] Comment on above: Performed By: #### A MM #### [facility] [address] [address] [address] Nilay Gibbs Sodium [Moles/Vol] 139 mmol/L Normal 136-145 [facility] Comment on above: Performed By: #### A MM #### [facility] [address] [address] [address] Nilay Gibbs Urea nitrogen [Mass/Vol] 15.0 mg/dL Normal 7.0-18.0 [facility] Comment on above: Performed By: #### A MM #### [facility] [address] [address] [address] Nilay Gibbs Urea nitrogen/Creatinine [Mass ratio] 12.7 mg/mg Normal [facility] Comment on above: Performed By: #### A MM #### [facility] [address] [address] [address] Nilay Gibbs CBC AUTO DIFFon 06-20-2022 BASO # 0.0 103/ul Normal 0.0-0.1 [facility] Comment on above: Performed By: #### A MM #### [facility] [address] [place] [address] Dr. Nilay Gibbs Basophils/100 WBC (Bld) 0.2 % Normal 0.2-2.0 [facility] Comment on above: Performed By: #### A MM #### [facility] [address] [place] [address] Dr. Nilay Gibbs EO # 0.0 103/ul Normal 0.0-0.7 [facility] Comment on above: Performed By: #### A MM #### [facility] [address] [address] [address] Nilay Gibbs Eosinophils/100 WBC (Bld) 0.3 % Critically low 0.9-7.0 [facility] Comment on above: Performed By: #### A MM #### [facility] [address] [place] [address] Dr. Nilay Gibbs Erythrocyte distribution width (RBC) [Ratio] 14.3 % Normal 11.0-15.0 [facility] Comment on above: Performed By: #### A MM #### [facility] [address] [place] [address] Dr. Nilay Gibbs Hematocrit (Bld) [Volume fraction] 39.3 % Critically low 42.0-54.0 [facility] Comment on above: Performed By: #### A MM #### [facility] [address] [place] [address] Dr. Nilay Gibbs Hemoglobin (Bld) [Mass/Vol] 13.1 g/dL Critically low 14.0-18.0 [facility] Comment on above: Performed By: #### A MM #### [facility] [address] [place] [address] Dr. Nilay Gibbs IG # 0.03 10e3/ul Normal 0.00-0.03 [facility] Comment on above: Performed By: #### A MM #### [facility] [address] [place] [address] Dr. Nilay Gibbs IG % 0.3 % Normal 0.0-0.5 [facility] Comment on above: Performed By: #### A MM #### [facility] [address] [place] [address] Dr. Nilay Gibbs LYMPH # 1.7 103/ul Normal 1.2-3.8 [facility] Comment on above: Performed By: #### A MM #### [facility] [address] [place] [address] Dr. Nilay Gibbs Lymphocytes/100 WBC (Bld) 14.5 % Critically low 20.5-60.0 [facility] Comment on above: Performed By: #### A MM #### [facility] [address] [place] [address] Dr. Nilay Gibbs MANUAL DIFF REQ NO Normal [facility] Comment on above: Performed By: #### A MM #### [facility] [address] [place] [address] Dr. Nilay Gibbs MCH (RBC) [Entitic mass] 29.2 pg Normal 25.9-34.0 [facility] Comment on above: Performed By: #### A MM #### [facility] [address] [place] [address] Dr. Nilay Gibbs MCHC (RBC) [Mass/Vol] 33.3 g/dL Normal 29.9-35.2 [facility] Comment on above: Performed By: #### A MM #### [facility] [address] [place] [address] Dr. Nilay Gibbs MCV (RBC) [Entitic vol] 87.5 fL Normal 80.0-94.0 [facility] Comment on above: Performed By: #### A MM #### [facility] [address] [address] [address] Nilay Gibbs MONO # 1.3 103/ul Critically high 0.3-0.8 [facility] Comment on above: Performed By: #### A MM #### [facility] [address] [address] [address] Nilay Gibbs Monocytes/100 WBC (Bld) 10.9 % Normal 1.7-12.0 [facility] Comment on above: Performed By: #### A MM #### [facility] [address] [address] [address] Nilay Gibbs NEUT # 8.7 103/ul Critically high 1.4-6.5 [facility] Comment on above: Performed By: #### A MM #### [facility] [address] [place] [address] Dr. Nilay Gibbs Neutrophils/100 WBC (Bld) 73.8 % Normal 43.0-75.0 [facility] Comment on above: Performed By: #### A MM #### [facility] [address] [place] [address] Dr. Nilay Gibbs Platelet mean volume (Bld) [Entitic vol] 10.9 fL Normal 9.5-13.5 [facility] Comment on above: Performed By: #### A MM #### [facility] [address] [place] [address] Dr. Nilay Gibbs PLT 171 103/ul Normal 150-450 [facility] Comment on above: Performed By: #### A MM #### [facility] [address] [place] [address] Dr. Nilay Gibbs RBC 4.49 106/ul Critically low 4.70-6.10 [facility] Comment on above: Performed By: #### A MM #### [facility] [address] [place] [address] Dr. Nilay Gibbs WBC 11.7 103/ul Critically high 4.0-11.0 [facility] Comment on above: Performed By: #### A MM #### [facility] [address] [place] [address] Dr. Nilay Gibbs CRPon 06-20-2022 CRP 25.4 mg/dL Critically high <=1.0 [facility] Comment on above: Performed By: #### C RP, CMP #### [facility] [address] [place] [address] Dr. Nilay Gibbs CULTURE BLOODon 06-20-2022 Microscopic examination of blood, culture Culture Observations: NO GROWTH AT 5 DAYS. Normal [facility] Comment on above: Performed By: #### C MP #### [facility] [address] [place] [address] Dr. Nilay Gibbs Microscopic examination of blood, culture Culture Observations: NO GROWTH AT 5 DAYS. Normal [facility] Comment on above: Performed By: #### C MP #### [facility] [address] [place] [address] Dr. Nilay Gibbs LACTATE/LACTIC ACIDon 2022 Lactate [Moles/Vol] 0.7 mmol/L Normal 0.4-2.0 [facility] Comment on above: Performed By: #### A MM #### [facility] [address] [place] [address] Dr. Nilay Gibbs PROF 14(COMP METB)on 023 Albumin [Mass/Vol] 3.8 g/dL Normal 3.4-5.0 [facility] Comment on above: Performed By: #### C RP, CMP #### [facility] [address] [place] [address] Dr. Nilay Gibbs Albumin/Globulin [Mass ratio] 1.1 {ratio} Normal [facility] Comment on above: Performed By: #### C RP, CMP #### [facility] [address] [place] [address] Dr. Nilay Gibbs ALP [Catalytic activity/Vol] 85 U/L Normal 46-116 [facility] Comment on above: Performed By: #### C RP, CMP #### [facility] [address] [place] [address] Dr. Nilay Gibbs ALT [Catalytic activity/Vol] 29 U/L Normal 16-63 [facility] Comment on above: Performed By: #### C RP, CMP #### [facility] [address] [address] [address] Nilay Gibbs Anion gap [Moles/Vol] 15.2 mmol/L Normal [facility] Comment on above: Performed By: #### C RP, CMP #### [facility] [address] [address] [address] Nilay Gibbs AST [Catalytic activity/Vol] 20 U/L Normal 15-37 [facility] Comment on above: Performed By: #### C RP, CMP #### [facility] [address] [address] [address] Nilay Gibbs Bilirubin [Mass/Vol] 1.1 mg/dL Critically high 0.2-1.0 [facility] Comment on above: Performed By: #### C RP, CMP #### [facility] [address] [place] [address] Dr. Nilay Gibbs Calcium [Mass/Vol] 9.4 mg/dL Normal 8.5-10.1 [facility] Comment on above: Performed By: #### C RP, CMP #### [facility] [address] [place] [address] Dr. Nilay Gibbs Chloride [Moles/Vol] 99 mmol/L Normal 98-107 [facility] Comment on above: Performed By: #### C RP, CMP #### [facility] [address] [place] [address] Dr. Nilay Gibbs CO2 [Moles/Vol] 25.7 mmol/L Normal 21.0-32.0 [facility] Comment on above: Performed By: #### C RP, CMP #### [facility] [address] [place] [address] Dr. Nilay Gibbs Creatinine [Mass/Vol] 1.32 mg/dL Critically high 0.70-1.30 [facility] Comment on above: Performed By: #### C RP, CMP #### [facility] [address] [place] [address] Dr. Nilay Gibbs EGFR-AF PANAMANIAN >60 Normal >=60 [facility] Comment on above: Performed By: #### C RP, CMP #### [facility] [address] [address] [address] Nilay Gibbs EGFR-NON AF PANAMANIAN >60 Normal >=60 [facility] Comment on above: Performed By: #### C RP, CMP #### [facility] [address] [address] [address] Nilay Gibbs Globulin (S) [Mass/Vol] 3.6 g/dL Normal [facility] Comment on above: Performed By: #### C RP, CMP #### [facility] [address] [address] [address] Nilay Gibbs Glucose [Mass/Vol] 106 mg/dL Normal 74-106 [facility] Comment on above: Performed By: #### C RP, CMP #### [facility] [address] [address] [address] Nilay Gibbs Potassium [Moles/Vol] 3.9 mmol/L Normal 3.5-5.1 [facility] Comment on above: Performed By: #### C RP, CMP #### [facility] [address] [address] [address] Nilay Gibbs Protein [Mass/Vol] 7.4 g/dL Normal 6.4-8.2 [facility] Comment on above: Performed By: #### C RP, CMP #### [facility] [address] [address] [address] Nilay Gibbs Sodium [Moles/Vol] 136 mmol/L Normal 136-145 [facility] Comment on above: Performed By: #### C RP, CMP #### [facility] [address] [address] [address] Nilay Gibbs Urea nitrogen [Mass/Vol] 10.0 mg/dL Normal 7.0-18.0 [facility] Comment on above: Performed By: #### C RP, CMP #### [facility] [address] [address] [address] Nilay Gibbs Urea nitrogen/Creatinine [Mass ratio] 7.6 mg/mg Normal [facility] Comment on above: Performed By: #### C RP, CMP #### [facility] [address] [address] [address] Nilay Gibbs SED [facility]on 2022 SED RATE 46 mm/hr Critically high <=15 [facility] Comment on above: Performed By: #### S EDR #### [facility] [address] [address] [address] Nilay Gibbs Covid-19 PCR ([facility])on SARS-CoV-2 (COVID-19) RNA TALHA+probe Ql (Unsp spec) Not detected Normal NOT DETECTED [facility] Comment on above: Result Comment: [...] for this test is supported by the [place] of [employer] and Human Service's declaration that [...] used). Performed By: #### A MM #### [facility] [address] [place] [address] Dr. Nilay Gibbs INFLUENZA A AND B AGon 01-31 INFLUANEGH SEE BELOW Normal [facility] Comment on above: Result Comment: Nega tive for Flu A protein angiten. Infection due to Flu A cannot be ruled out. Flu A angiten in the sample may be below the detection limit of the test. Performed By: #### A MM #### [facility] [address] [address] [address] Nilay Gibbs INFLUBNEGH SEE BELOW Normal [facility] Comment on above: Result Comment: Nega tive for Flu B protein antigen. Infection due to Flu B cannot be ruled out. Flu B antigen in the sample may be below the detection limit of the test. Performed By: #### A MM #### [facility] [address] [address] [address] Nilay Gibbs INFLUENZA A AG Negative Normal NEGATIVE SEE COMMENT [facility] Comment on above: Performed By: #### A MM #### [facility] [address] [address] [address] Nilay Gibbs INFLUENZA B AG Negative Normal NEGATIVE SEE COMMENT [facility] Comment on above: Performed By: #### A MM #### [facility] [address] [address] [address] Nilay Gibbs INTERNAL CONTROLS Within Normal Limits Normal Wi thin Normal Limits [facility] Comment on above: Performed By: #### A MM #### [facility] [address] [address] [address] Nilay Gibbs Cholesterol [Mass/volume] in Serum or PlasmaOrdered By: Adam Young on 12-08-2021 Cholesterol [Mass/Vol] 205 mg/dL 140-200 [facility] Comment on above: Chol less than 200 m g/dl low riskChol 201-239 mg/dl borderline riskChol 240 mg/dl and greater high risk Cholesterol in LDL Calc [Mas s/Vol]Ordered By: Adam Young on 12-08-2021 Cholesterol in LDL [Mass/Vol] 120 mg/dL 0-100 [facility] Comment on above: LDL ATP III CLASSIFI CATIONLDL less than 100 mg/dL OptimalLDL 100-129 mg/dL Near or above optimalLDL 130-159 mg/dL Borderline highLDL 160-189 mg/dL HighLDL greater than 189 mg/dL Very high Cholesterol in VLDL Calc [Ma ss/Vol]Ordered By: Adam Young on 12-08-2021 Cholesterol in VLDL [Mass/Vol] 37 mg/dL [facility] No Panel InformationOrdered By: Adam Young on 12-08-2021 25-Hydroxy Vitamin D Total 50.6 ng/mL 30-100 [facility] Comment on above: VITAMIN D [...] Cholesterol in HDL [Mass/Vol] 47 mg/dL 29-71 [facility] Comment on above: HDL CHOL ATP-III CLA SSIFICATION Cardiovascular RiskHDL > or equal to 60 mg/dL LOWHDL < 40 mg/dL HIGH Serum or plasma total choles terol/high density lipoprotein (HDL) cholesterol mass ratOrdered By: Adam Young on 12-08-2021 Cholesterol.total/Ch olesterol in HDL [Mass ratio] 4.4 {ratio} <5.0 [facility] TSH DL <= 0.005 mIU/L QnOrde red By: Adam Young on 12-08-2021 TSH Qn 0.75 m[IU]/L 0.45-5.33 [facility] Triglyceride [Mass/volume] i n Serum or PlasmaOrdered By: Adam Young on 12-08-2021 Triglyceride [Mass/Vol] 188 mg/dL 35-149 [facility] Comment on above: TRIG ATP III CLASSIF ICATIONTRIG less than 150 mg/dL NormalTRIG 150-199 mg/dL Borderline highTRIG 200-500 mg/dL High TRIG greater than 500 mg/dL Very highStandard traceable to the Center for Disease Conrtrol and Prevention (CDC) test method. Covid-19 PCR ([facility]VDTB)on SARS-CoV-2 (COVID-19) RNA TALHA+probe Ql (Unsp spec) Not detected Normal NOT DETECTED [facility] Comment on above: Result Comment: [...] for this test is supported by the [place] [employer] and Human Service's declaration that [...] used). Performed By: #### C MP #### [facility] [address] [place] [address] Dr. Nilay Gibbs ETHANOL (BLD ALC)on 12-08-19 22 Ethanol [Mass/Vol] 288 mg/dL Normal [facility] Comment on above: Performed By: #### C MP #### [facility] [address] [place] [address] Dr. Nilay Gibbs ALC NOTE NOTE: 80 mg/dl is th e legal limit for a blood alcohol level Normal [facility] Comment on above: Performed By: #### C MP #### [facility] [address] [place] [address] Dr. Nilay Gibbs Performed By: #### A MM #### [facility] [address] [place] [address] Dr. Nilay Gibbs Ethanol [Mass/Vol] 130 mg/dL Normal [facility] Comment on above: Performed By: #### A MM #### [facility] [address] [place] [address] Dr. Nilay Gibbs Ethanol [Mass/Vol] 196 mg/dL Normal [facility] Comment on above: Performed By: #### A MM #### [facility] [address] [place] [address] Dr. Nilay Gibbs ACETAMINOPHENon 12-06-2021 Acetaminophen [Mass/Vol] ug/mL Critically low 10.0-30.0 [facility] Comment on above: Performed By: #### A CET #### [facility] [address] [place] [address] Dr. Nilay Gibbs AMMONIAon 12-06-2021 Ammonia (P) [Moles/Vol] 22 umol/L Normal 11-32 [facility] Comment on above: Performed By: #### A MM #### [facility] [address] [place] [address] Dr. Nilay Gibbs CBC AUTO DIFFon 12-06-2021 BASO # 0.0 103/ul Normal 0.0-0.1 [facility] Comment on above: Performed By: #### A MM #### [facility] [address] [place] [address] Dr. Nilay Gibbs Basophils/100 WBC (Bld) 0.5 % Normal 0.2-2.0 [facility] Comment on above: Performed By: #### A MM #### [facility] [address] [place] [address] Dr. Nilay Gibbs EO # 0.1 103/ul Normal 0.0-0.7 [facility] Comment on above: Performed By: #### A MM #### [facility] [address] [place] [address] Dr. Nilay Gibbs Eosinophils/100 WBC (Bld) 1.0 % Normal 0.9-7.0 [facility] Comment on above: Performed By: #### A MM #### [facility] [address] [place] [address] Dr. Nilay Gibbs Erythrocyte distribution width (RBC) [Ratio] 12.9 % Normal 11.0-15.0 [facility] Comment on above: Performed By: #### A MM #### [facility] [address] [place] [address] Dr. Nilay Gibbs Hematocrit (Bld) [Volume fraction] 40.5 % Critically low 42.0-54.0 [facility] Comment on above: Performed By: #### A MM #### [facility] [address] [place] [address] Dr. Nilay Gibbs Hemoglobin (Bld) [Mass/Vol] 13.9 g/dL Critically low 14.0-18.0 [facility] Comment on above: Performed By: #### A MM #### [facility] [address] [place] [address] Dr. Nilay Gibbs IG # 0.02 10e3/ul Normal 0.00-0.03 [facility] Comment on above: Performed By: #### A MM #### [facility] [address] [place] [address] Dr. Nilay Gibbs IG % 0.3 % Normal 0.0-0.5 [facility] Comment on above: Performed By: #### A MM #### [facility] [address] [place] [address] Dr. Nilay Gibbs LYMPH # 2.7 103/ul Normal 1.2-3.8 [facility] Comment on above: Performed By: #### A MM #### [facility] [address] [place] [address] Dr. Nilay Gibbs Lymphocytes/100 WBC (Bld) 45.2 % Normal 20.5-60.0 [facility] Comment on above: Performed By: #### A MM #### [facility] [address] [place] [address] Dr. Nilay Gibbs MANUAL DIFF REQ NO Normal [facility] Comment on above: Performed By: #### A MM #### [facility] [address] [place] [address] Dr. Nilay Gibbs MCH (RBC) [Entitic mass] 29.8 pg Normal 25.9-34.0 [facility] Comment on above: Performed By: #### A MM #### [facility] [address] [place] [address] Dr. Nilay Gibbs MCHC (RBC) [Mass/Vol] 34.3 g/dL Normal 29.9-35.2 [facility] Comment on above: Performed By: #### A MM #### [facility] [address] [place] [address] Dr. Nilay Gibbs MCV (RBC) [Entitic vol] 86.9 fL Normal 80.0-94.0 [facility] Comment on above: Performed By: #### A MM #### [facility] [address] [place] [address] Dr. Nilay Gibbs MONO # 0.4 103/ul Normal 0.3-0.8 [facility] Comment on above: Performed By: #### A MM #### [facility] [address] [place] [address] Dr. Nilay Gibbs Monocytes/100 WBC (Bld) 6.3 % Normal 1.7-12.0 [facility] Comment on above: Performed By: #### A MM #### [facility] [address] [place] [address] Dr. Nilay Gibbs NEUT # 2.7 103/ul Normal 1.4-6.5 [facility] Comment on above: Performed By: #### A MM #### [facility] [address] [place] [address] Dr. Nilay Gibbs Neutrophils/100 WBC (Bld) 46.7 % Normal 43.0-75.0 [facility] Comment on above: Performed By: #### A MM #### [facility] [address] [place] [address] Dr. Nilay Gibbs Platelet mean volume (Bld) [Entitic vol] 10.4 fL Normal 9.5-13.5 [facility] Comment on above: Performed By: #### A MM #### [facility] [address] [place] [address] Dr. Nilay Gibbs PLT 237 103/ul Normal 150-450 [facility] Comment on above: Performed By: #### A MM #### [facility] [address] [place] [address] Dr. Nilay Gibbs RBC 4.66 106/ul Critically low 4.70-6.10 [facility] Comment on above: Performed By: #### A MM #### [facility] [address] [place] [address] Dr. Nilay Gibbs WBC 5.9 103/ul Normal 4.0-11.0 [facility] Comment on above: Performed By: #### A MM #### [facility] [address] [place] [address] Dr. Nilay Gibbs DRUG SCREEN RAPID (URINE)on 12-06-2021 AMP Negative Normal NEGATIVE [facility] Comment on above: Performed By: #### D RUGRPD #### [facility] [address] [place] [address] Dr. Nilay Gibbs BAR Negative Normal NEGATIVE [facility] Comment on above: Performed By: #### D RUGRPD #### [facility] [address] [place] [address] Dr. Nilay Gibbs BUP Negative Normal NEGATIVE [facility] Comment on above: Performed By: #### D RUGRPD #### [facility] [address] [place] [address] Dr. Nilay Gibbs BZO Positive Abnormal NEGATIVE [facility] Comment on above: Performed By: #### D RUGRPD #### [facility] [address] [place] [address] Dr. Nilay Gibbs ROQUE Negative Normal NEGATIVE [facility] Comment on above: Performed By: #### D RUGRPD #### [facility] [address] [place] [address] Dr. Nilay Gibbs CUT-OFFS SEE BELOW Normal [facility] Comment on above: Result Comment: AMP [...] ng/mL Performed By: #### D RUGRPD #### [facility] [address] [place] [address] Dr. Nilay Gibbs DRUG CUT HEADER DRUG CLASS TEST SYST EM CUT-OFF CONCENTRATIONS ARE FOLLOWS: Normal [facility] Comment on above: Performed By: #### D RUGRPD #### [facility] [address] [address] [address] Nilay Gibbs mAMP Negative Normal NEGATIVE [facility] Comment on above: Performed By: #### D RUGRPD #### [facility] [address] [place] [address] Dr. Nilay Gibbs MTD Negative Normal NEGATIVE [facility] Comment on above: Performed By: #### D RUGRPD #### [facility] [address] [place] [address] Dr. Nilay Gibbs OPI Negative Normal NEGATIVE [facility] Comment on above: Performed By: #### D RUGRPD #### [facility] [address] [place] [address] Dr. Nilay Gibbs OXY Negative Normal NEGATIVE [facility] Comment on above: Performed By: #### D RUGRPD #### [facility] [address] [place] [address] Dr. Nilay Gibbs PCP Negative Normal NEGATIVE [facility] Comment on above: Performed By: #### D RUGRPD #### [facility] [address] [place] [address] Dr. Nilay Gibbs PPX Negative Normal NEGATIVE [facility] Comment on above: Performed By: #### D RUGRPD #### [facility] [address] [place] [address] Dr. Nilay Gibbs TCA Negative Normal NEGATIVE [facility] Comment on above: Performed By: #### D RUGRPD #### [facility] [address] [place] [address] Dr. Nilay Gibbs THC Negative Normal NEGATIVE [facility] Comment on above: Performed By: #### D RUGRPD #### [facility] [address] [place] [address] Dr. Nilay Gibbs ETHANOL (BLD ALC)on 12-07-19 ALC NOTE NOTE: 80 mg/dl is th e legal limit for a blood alcohol level Normal [facility] Comment on above: Performed By: #### C MP #### [facility] [address] [place] [address] Dr. Nilay Gibbs Ethanol [Mass/Vol] 336 mg/dL Normal [facility] Comment on above: Performed By: #### C MP #### [facility] [address] [place] [address] Dr. Nilay Gibbs PROF 14(COMP METB)on 022 Albumin [Mass/Vol] 4.2 g/dL Normal 3.4-5.0 [facility] Comment on above: Performed By: #### C MP #### [facility] [address] [place] [address] Dr. Nilay Gibbs Albumin/Globulin [Mass ratio] 1.3 {ratio} Normal [facility] Comment on above: Performed By: #### C MP #### [facility] [address] [place] [address] Dr. Nilay Gibbs ALP [Catalytic activity/Vol] 104 U/L Normal 46-116 [facility] Comment on above: Performed By: #### C MP #### [facility] [address] [place] [address] Dr. Nilay Gibbs ALT [Catalytic activity/Vol] 41 U/L Normal 16-63 [facility] Comment on above: Performed By: #### C MP #### [facility] [address] [place] [address] Dr. Nilay Gibbs Anion gap [Moles/Vol] 11.5 mmol/L Normal [facility] Comment on above: Performed By: #### C MP #### [facility] [address] [place] [address] Dr. Nilay Gibbs AST [Catalytic activity/Vol] 37 U/L Normal 15-37 [facility] Comment on above: Performed By: #### C MP #### [facility] [address] [place] [address] Dr. Nilay Gibbs Bilirubin [Mass/Vol] 0.2 mg/dL Normal 0.2-1.0 [facility] Comment on above: Performed By: #### C MP #### [facility] [address] [place] [address] Dr. Nilay Gibbs Calcium [Mass/Vol] 8.6 mg/dL Normal 8.5-10.1 [facility] Comment on above: Performed By: #### C MP #### [facility] [address] [address] [address] Nilay Gibbs Chloride [Moles/Vol] 97 mmol/L Critically low 98-107 [facility] Comment on above: Performed By: #### C MP #### [facility] [address] [address] [address] Nilay Gibbs CO2 [Moles/Vol] 26.0 mmol/L Normal 21.0-32.0 [facility] Comment on above: Performed By: #### C MP #### [facility] [address] [address] [address] Nilay Gibbs Creatinine [Mass/Vol] 1.47 mg/dL Critically high 0.70-1.30 [facility] Comment on above: Performed By: #### C MP #### [facility] [address] [address] [address] Nilay Gibbs EGFR-AF PANAMANIAN >60 Normal >=60 [facility] Comment on above: Performed By: #### C MP #### [facility] [address] [address] [address] Nilay Gibbs EGFR-NON AF PANAMANIAN 56 mL/min/1.73m2 Critically low >=60 [facility] Comment on above: Performed By: #### C MP #### [facility] [address] [address] [address] Nilay Gibbs Globulin (S) [Mass/Vol] 3.2 g/dL Normal [facility] Comment on above: Performed By: #### C MP #### [facility] [address] [address] [address] Nilay iGbbs Glucose [Mass/Vol] 117 mg/dL Critically high 74-106 [facility] Comment on above: Performed By: #### C MP #### [facility] [address] [address] [address] Nilay Gibbs Potassium [Moles/Vol] 3.5 mmol/L Normal 3.5-5.1 [facility] [facility] Comment on above: Performed By: #### C MP #### [facility] [address] [address] [address] Nilay Gibbs Protein [Mass/Vol] 7.4 g/dL Normal 6.4-8.2 [facility] Comment on above: Performed By: #### C MP #### [facility] [address] [address] [address] Nilay Gibbs Sodium [Moles/Vol] 131 mmol/L Critically low 136-145 [facility] Comment on above: Performed By: #### C MP #### [facility] [address] [address] [address] Nilay Gibbs Urea nitrogen [Mass/Vol] 14.0 mg/dL Normal 7.0-18.0 [facility] Comment on above: Performed By: #### C MP #### [facility] [address] [address] [address] Nilay Gibbs Urea nitrogen/Creatinine [Mass ratio] 9.5 mg/mg Normal [facility] Comment on above: Performed By: #### C MP #### [facility] [address] [address] [address] Nilay Gibbs SALICYLATEon 12-06-2021 SALICYLATE <2.8 Normal <=19.9 [facility] Comment on above: Performed By: #### A MM #### [facility] [address] [address] [address] Nilay Gibbs MRI Shoulder w/o Lefton [...] by Stephen Ware on 11/11/2021 0955 Normal [facility] Activated partial thrombopla stin time (aPTT) in platelet poor plasma by coagulation aOrdered By: Kristal Goldberg on 09-27-2021 aPTT Coag (PPP) [Time] 34.7 s 25.1-36.5 [facility] Albumin [Mass/volume] in Ser um or PlasmaOrdered By: Kristal Goldberg on 09-27-2021 Albumin [Mass/Vol] 4.1 g/dL 3.2-5.5 [facility] Basophils Auto (Bld) [#/Vol] Ordered By: Kristal Goldberg on 09-27-2021 Basophils (Bld) [#/Vol] 0.0 10*3/uL 0.0-0.2 [facility] Basophils/100 WBC Auto (Bld) Ordered By: Kristal Goldberg on 09-27-2021 Basophils/100 WBC (Bld) 0.3 % . [facility] Bilirubin Auto test strip Ql (U)Ordered By: Kristal Goldberg on 09-27-2021 Bilirubin Ql (U) Negative Negative [facility] Blood hemoglobin measurement (mass/volume)Ordered By: Kristal Goldberg on 09-27-2021 Hemoglobin (Bld) [Mass/Vol] 13.6 g/dL 13.0-17.0 [facility] Blood leukocytes automated c ount (number/volume)Ordered By: Kristal Goldberg on 09-27-2021 WBC (Bld) [#/Vol] 5.7 10*3/uL 4.5-11.0 [facility] CBC AUTO DIFFon 09-27-2021 BASO # 0.0 103/ul Normal 0.0-0.1 [facility] Comment on above: Performed By: #### A MM #### [facility] [address] [address] [address] Nilay Gibbs Basophils/100 WBC (Bld) 0.5 % Normal 0.2-2.0 [facility] Comment on above: Performed By: #### A MM #### [facility] [address] [address] [address] Nilay Gibbs EO # 0.1 103/ul Normal 0.0-0.7 [facility] Comment on above: Performed By: #### A MM #### [facility] [address] [place] [address] Dr. Nilay Gibbs Eosinophils/100 WBC (Bld) 1.6 % Normal 0.9-7.0 [facility] Comment on above: Performed By: #### A MM #### [facility] [address] [place] [address] Dr. Nilay Gibbs Erythrocyte distribution width (RBC) [Ratio] 14.0 % Normal 11.0-15.0 [facility] Comment on above: Performed By: #### A MM #### [facility] [address] [place] [address] Dr. Nilay Gibbs Hematocrit (Bld) [Volume fraction] 40.2 % Critically low 42.0-54.0 [facility] Comment on above: Performed By: #### A MM #### [facility] [address] [place] [address] Dr. Nilay Gibbs Hemoglobin (Bld) [Mass/Vol] 13.7 g/dL Critically low 14.0-18.0 [facility] Comment on above: Performed By: #### A MM #### [facility] [address] [place] [address] Dr. Nilay Gibbs IG # 0.01 10e3/ul Normal 0.00-0.03 [facility] Comment on above: Performed By: #### A MM #### [facility] [address] [place] [address] Dr. Nilay Gibbs IG % 0.2 % Normal 0.0-0.5 [facility] Comment on above: Performed By: #### A MM #### [facility] [address] [place] [address] Dr. Nilay Gibbs LYMPH # 2.1 103/ul Normal 1.2-3.8 [facility] Comment on above: Performed By: #### A MM #### [facility] [address] [place] [address] Dr. Nilay Gibbs Lymphocytes/100 WBC (Bld) 37.1 % Normal 20.5-60.0 [facility] Comment on above: Performed By: #### A MM #### [facility] [address] [place] [address] Dr. Nilay Gibbs MANUAL DIFF REQ NO Normal [facility] Comment on above: Performed By: #### A MM #### [facility] [address] [place] [address] Dr. Nilay Gibbs MCH (RBC) [Entitic mass] 30.1 pg Normal 25.9-34.0 [facility] Comment on above: Performed By: #### A MM #### [facility] [address] [place] [address] Dr. Nilay Gibbs MCHC (RBC) [Mass/Vol] 34.1 g/dL Normal 29.9-35.2 [facility] Comment on above: Performed By: #### A MM #### [facility] [address] [place] [address] Dr. Nilay Gibbs MCV (RBC) [Entitic vol] 88.4 fL Normal 80.0-94.0 [facility] Comment on above: Performed By: #### A MM #### [facility] [address] [place] [address] Dr. Nilay Gibbs MONO # 0.4 103/ul Normal 0.3-0.8 [facility] Comment on above: Performed By: #### A MM #### [facility] [address] [place] [address] Dr. Nilay Gibbs Monocytes/100 WBC (Bld) 7.2 % Normal 1.7-12.0 [facility] Comment on above: Performed By: #### A MM #### [facility] [address] [place] [address] Dr. Nilay Gibbs NEUT # 3.1 103/ul Normal 1.4-6.5 [facility] Comment on above: Performed By: #### A MM #### [facility] [address] [place] [address] Dr. Nilay Gibbs Neutrophils/100 WBC (Bld) 53.4 % Normal 43.0-75.0 [facility] Comment on above: Performed By: #### A MM #### [facility] [address] [place] [address] Dr. Nilay Gibbs Platelet mean volume (Bld) [Entitic vol] 10.3 fL Normal 9.5-13.5 [facility] Comment on above: Performed By: #### A MM #### [facility] [address] [place] [address] Dr. Nilay Gibbs PLT 254 103/ul Normal 150-450 [facility] Comment on above: Performed By: #### A MM #### [facility] [address] [place] [address] Dr. Nilay Gibbs RBC 4.55 106/ul Critically low 4.70-6.10 [facility] Comment on above: Performed By: #### A MM #### [facility] [address] [place] [address] Dr. Nilay Gibbs WBC 5.7 103/ul Normal 4.0-11.0 [facility] Comment on above: Performed By: #### A MM #### [facility] [address] [place] [address] HEAD WO CONon [...] by: RUFINA MARIN Date: 2021-09-27 10:27 Normal [facility] CTA HEAD WO W CONon 09-28-19 [...] by: NEL KING Date: 2021-09-27 12:19 Normal [facility] CTA NECK WO W CONon 09-28-19 [...] by: NEL KING Date: 2021-09-27 12:06 Normal [facility] Creatine kinase [Enzymatic a ctivity/volume] in Serum or PlasmaOrdered By: Kristal Goldberg on 09-27-2021 CK [Catalytic activity/Vol] 181 U/L 22-269 [facility] Creatinine and Glomerular fi ltration rate.predicted panel (S/P/Bld)Ordered By: Kristal Goldberg on 09-27-2021 Creatinine [Mass/Vol] 1.36 mg/dL 0.64-1.27 [facility] Eosinophils Auto (Bld) [#/Vo l]Ordered By: Kristal Goldberg on 09-27-2021 Eosinophils (Bld) [#/Vol] 0.1 10*3/uL 0.0-0.45 [facility] Eosinophils/100 WBC Auto (Bl d)Ordered By: Kristal Goldberg on 09-27-2021 Eosinophils/100 WBC (Bld) 1.2 % . [facility] Erythrocyte distribution wid th Auto (RBC) [Ratio]Ordered By: Kristal Goldberg on 09-27-2021 Erythrocyte distribution width (RBC) [Ratio] 14.5 % 12.0-14.8 [facility] Estimated glomerular filtrat ion rate (GFR) non- AmericanOrdered By: Kristal Goldberg on 09-27-2021 GFR/1.73 sq M.predicted among non-blacks MDRD (S/P/Bld) [Vol rate/Area] > 60 mL/Min [facility] Globulin Calc (S) [Mass/Vol] Ordered By: Kristal Goldberg on 09-27-2021 Globulin (S) [Mass/Vol] 2.4 g/dL [facility] Hematocrit Auto (Bld) [Volum e fraction]Ordered By: Kristal Goldberg on 09-27-2021 Hematocrit (Bld) [Volume fraction] 40.8 % 38.8-50.0 [facility] Ketones Auto test strip (U) [Mass/Vol]Ordered By: Kristal Goldberg on 09-27-2021 Ketones (U) [Mass/Vol] Negative Negative [facility] - CoagulationOrde red By: Kristal Goldberg on 09-27-2021 PT Coag (PPP) [Time] 11.8 s 9.0-12.9 [facility] - Hematology and Cell countsOrdered By: Kristal Goldberg on 09-27-2021 Nucleated RBC/100 WBC (Bld) [Ratio] 0.0 % 0-0.5 [facility] Lymphocytes Auto (Bld) [#/Vo l]Ordered By: Kristal Goldberg on 09-27-2021 Lymphocytes (Bld) [#/Vol] 1.8 10*3/uL 1.00-4.8 [facility] Lymphocytes/100 WBC Auto (Bl d)Ordered By: Kristal Goldberg on 09-27-2021 Lymphocytes/100 WBC (Bld) 31.2 % . [facility] MCH Auto (RBC) [Entitic mass ]Ordered By: Kristal Goldberg on 09-27-2021 MCH (RBC) [Entitic mass] 30.1 pg 27.5-35.2 [facility] MCHC Auto (RBC) [Mass/Vol]Or dered By: Kristal Goldberg on 09-27-2021 MCHC (RBC) [Mass/Vol] 33.4 g/dL 32.5-35.6 [facility] MCV Auto (RBC) [Entitic vol] Ordered By: Kristal Goldberg on 09-27-2021 MCV (RBC) [Entitic vol] 90.3 fL 83.5-101 [facility] Monocytes Auto (Bld) [#/Vol] Ordered By: Kristal Goldberg on 09-27-2021 Monocytes (Bld) [#/Vol] 0.3 10*3/uL 0.0-0.8 [facility] Monocytes/100 WBC Auto (Bld) Ordered By: Kristal Goldberg on 09-27-2021 Monocytes/100 WBC (Bld) 6.0 % . [facility] Neutrophils Auto (Bld) [#/Vo l]Ordered By: Kristal Goldberg on 09-27-2021 Neutrophils (Bld) [#/Vol] 3.5 10*3/uL 1.8-7.7 [facility] Neutrophils/100 WBC Auto (Bl d)Ordered By: Kristal Goldberg on 09-27-2021 Neutrophils/100 WBC (Bld) 61.3 % . [facility] No Panel InformationOrdered By: Kristal Goldberg on 09-27-2021 Estimated GFR () > 60 mL/Min [facility] Comment on above: GFR estimated refere nce range: According to KDOQI guidelines, <60 ml/min/1.73m2 is sufficient to diagnose a patient with chronic kidney disease. Pharmacy Creatinine Clearance (Chem 94.06 [facility] PROF CHEM 8 (BAS METB)on Anion gap [Moles/Vol] 10.0 mmol/L Normal [facility] Comment on above: Performed By: #### C MP #### [facility] [address] [address] [address] Nilay Gibbs Calcium [Mass/Vol] 9.4 mg/dL Normal 8.5-10.1 [facility] Comment on above: Performed By: #### C MP #### [facility] [address] [address] [address] Nilay Gibbs Chloride [Moles/Vol] 103 mmol/L Normal 98-107 [facility] Comment on above: Performed By: #### C MP #### [facility] [address] [address] [address] Nilay Gibbs CO2 [Moles/Vol] 27.6 mmol/L Normal 21.0-32.0 [facility] Comment on above: Performed By: #### C MP #### [facility] [address] [address] [address] Nilay Gibbs Creatinine [Mass/Vol] 1.39 mg/dL Critically high 0.70-1.30 [facility] Comment on above: Performed By: #### C MP #### [facility] [address] [address] [address] Nilay Gibbs EGFR-AF PANAMANIAN >60 Normal >=60 [facility] Comment on above: Performed By: #### C MP #### [facility] [address] [address] [address] Nilay Gibbs EGFR-NON AF PANAMANIAN 60 mL/min/1.73m2 Normal >=60 [facility] Comment on above: Performed By: #### C MP #### [facility] [address] [address] [address] Nilay Gibbs Glucose [Mass/Vol] 115 mg/dL Critically high 74-106 [facility] Comment on above: Performed By: #### C MP #### [facility] [address] [address] [address] Nilay Gibbs Potassium [Moles/Vol] 3.6 mmol/L Normal 3.5-5.1 [facility] Comment on above: Performed By: #### C MP #### [facility] [address] [place] [address] Dr. Nilay Gibbs Sodium [Moles/Vol] 137 mmol/L Normal 136-145 [facility] Comment on above: Performed By: #### C MP #### [facility] [address] [place] [address] Dr. Nilay Gibbs Urea nitrogen [Mass/Vol] 17.0 mg/dL Normal 7.0-18.0 [facility] Comment on above: Performed By: #### C MP #### [facility] [address] [place] [address] Dr. Nilay Gibbs Urea nitrogen/Creatinine [Mass ratio] 12.2 mg/mg Normal [facility] Comment on above: Performed By: #### C MP #### [facility] [address] [place] [address] Dr. Nilay Gibbs PROTIMEon 09-27-2021 INR Coag (PPP) [Relative time] 0.99 {INR} Normal [facility] Comment on above: Performed By: #### P T, PTT #### [facility] [address] [place] [address] Dr. Nilay Gibbs INR GUIDELINES SEE BELOW Normal [facility] Comment on above: Result Comment: PETRONA RED INR: 2.0 - 3.0 CONDITIONS NOT LISTED BELOW 2.5 - 3.5 FOR PROSTHETIC HEART VALVE REPLACEMENT 2.5 - 3.5 RECURRENT THROMBOSIS Performed By: #### P T, PTT #### [facility] [address] [place] [address] Dr. Nilay Gibbs PT Coag (PPP) [Time] 10.7 s Normal 9.0-11.6 [facility] Comment on above: Performed By: #### P T, PTT #### [facility] [address] [place] [address] Dr. Nilay Gibbs PTTon 09-27-2021 aPTT Coag (Bld) [Time] 29.1 s Normal 22.3-36.2 [facility] Comment on above: Performed By: #### P T, PTT #### [facility] [address] [address] [address] Nilay Gibbs Platelet mean volume Auto (B ld) [Entitic vol]Ordered By: Kristal Goldberg on 09-27-2021 Platelet mean volume (Bld) [Entitic vol] 8.7 fL 6.6-10.1 [facility] Platelet poor plasma interna tional normalized ratio (INR) by coagulation assay (relatOrdered By: Kristal Goldberg on 09-27-2021 INR Coag (PPP) [Relative time] 1.1 {INR} [facility] Comment on above: INR Therapeutic [...] 09-27-2021 Platelets (Bld) [#/Vol] 240 10*3/uL 150-450 [facility] Protein Auto test strip (U) [Mass/Vol]Ordered By: Kristal Goldberg on 09-27-2021 Protein (U) [Mass/Vol] Negative Negative [facility] Protein [Mass/volume] in Ser um or PlasmaOrdered By: Kristal Goldberg on 09-27-2021 Protein [Mass/Vol] 6.5 g/dL 6.1-7.9 [facility] RBC Auto (Bld) [#/Vol]Ordere d By: Kristal Goldberg on 09-27-2021 RBC (Bld) [#/Vol] 4.52 10*6/uL 3.90-5.60 [facility] Serum or plasma alanine marquez otransferase measurement without P-5'-P (enzymatic activiOrdered By: Kristal Goldberg on 09-27-2021 ALT No additional P-5'-P [Catalytic activity/Vol] 22 U/L 10-60 [facility] Serum or plasma albumin/glob ulin mass ratioOrdered By: Kristal Goldberg on 09-27-2021 Albumin/Globulin [Mass ratio] 1.7 {ratio} [facility] Serum or plasma alkaline kimi sphatase measurement (enzymatic activity/volume)Ordered By: Kristal Goldberg on 09-27-2021 ALP [Catalytic activity/Vol] 72 U/L 32-92 [facility] Serum or plasma aspartate am inotransferase measurement (enzymatic activity/volume)Ordered By: Krisatl Goldberg on 09-27-2021 AST [Catalytic activity/Vol] 24 U/L 10-42 [facility] Serum or plasma calcium isabel urement (mass/volume)Ordered By: Kristal Goldberg on 09-27-2021 Calcium [Mass/Vol] 9.6 mg/dL 8.2-10.2 [facility] Serum or plasma chloride airam surement (moles/volume)Ordered By: Kristal Goldberg on 09-27-2021 Chloride [Moles/Vol] 98 mmol/L 95-114 [facility] Serum or plasma creatine kin ase MB (CKMB)/total creatine kinase (CK) ratio by calculaOrdered By: Kristal Goldberg on 09-27-2021 CK.MB Calc [Catalytic fraction] 1.7 % 0.00-2.50 [facility] Serum or plasma creatine kin ase MB measurement (mass/volume)Ordered By: Kristal Goldberg on 09-27-2021 CK.MB [Mass/Vol] 3.1 ng/mL 0.6-6.3 [facility] Serum or plasma glucose isabel urement (mass/volume)Ordered By: Kristal Goldberg on 09-27-2021 Glucose [Mass/Vol] 94 mg/dL 70-100 [facility] Comment on above: ADA recommended [...] plasma potassium me asurement (moles/volume)Ordered By: Kristal Goldebrg on 09-27-2021 Potassium [Moles/Vol] 3.9 mmol/L 3.5-5.1 [facility] Serum or plasma sodium measu rement (moles/volume)Ordered By: Kristal Goldberg on 09-27-2021 Sodium [Moles/Vol] 135 mmol/L 136-146 [facility] Serum or plasma total biliru bin measurement (mass/volume)Ordered By: Kristal Goldberg on 09-27-2021 Bilirubin [Mass/Vol] 0.8 mg/dL 0.3-1.2 [facility] Serum or plasma total carbon dioxide measurement (moles/volume)Ordered By: Kristal Goldberg on 09-27-2021 CO2 [Moles/Vol] 24.8 mmol/L 22.0-30.0 [facility] Serum or plasma urea nitroge n measurement (mass/volume)Ordered By: Kristal Goldberg on 09-27-2021 Urea nitrogen [Mass/Vol] 13 mg/dL 9- [facility] TROPONIN, HIGH SENSITIVITYon 09-27-2021 HSTROP 4.5 pg/mL Normal 4.0-76.1 [facility] Comment on above: Result Comment: CUT- OFF POINTS HAVE BEEN ESTABLISHED BASED ON THE FOURTH UNIVERSAL DEFINITIONS OF MYOCARDIAL INFARCTION. THE UPPER REFERENCE LIMIT (URL) OF TROPONIN, DEFINED THE 99TH PERCENTILE OF cTnI DISTRIBUTION IN A REFERENCE POPULATION, HAS BEEN CONFIRMED THE DECISION THRESHOLD FOR [place] DIAGNOSIS. Performed By: #### C MP #### [facility] [address] [place] [address] Dr. Nilay Gibbs Troponin I.cardiac [Mass/vol ume] in Serum or Plasma by High sensitivity methodOrdered By: Kristal Goldberg on 09-27-2021 Troponin I.cardiac High sensitivity method [Mass/Vol] < 3 pg/mL 0-20 [facility] Urine appearanceOrdered By: Kristal Goldberg on 09-27-2021 Appearance (U) Clear Clear [facility] Urine colorOrdered By: Aurora Goldberg on 09-27-2021 Color (U) Yellow Yellow [facility] Urine glucose measurement by automated test strip (mass/volume)Ordered By: Kristal Goldberg on 09-27-2021 Glucose Auto test strip (U) [Mass/Vol] Normal mg/dL Normal [facility] Urine hemoglobin detection b y automated test stripOrdered By: Kristal Goldberg on 09-27-2021 Hemoglobin Auto test strip Ql (U) Negative Negative [facility] Urine leukocyte esterase det ection by automated test stripOrdered By: Kristal Goldberg on 09-27-2021 Leukocyte esterase Auto test strip Ql (U) Negative Negative [facility] Urine nitrite detection by a utomated test stripOrdered By: Kristal Goldberg on 09-27-2021 Nitrite Auto test strip Ql (U) Negative Negative [facility] Urobilinogen Auto test strip (U) [Mass/Vol]Ordered By: Kristal Goldberg on 09-27-2021 Urobilinogen (U) [Mass/Vol] Normal mg/dL Normal [facility] pH Auto test strip (U)Ordere d By: Kristal Goldberg on 09-27-2021 pH (U) 1.005 [pH] 1.001-1.030 [facility] pH (U) 5.5 [pH] 5.0-9.0 [facility] XR SHOULDER 2V AP/TRUE AP [...] Mild glenohumeral narrowing IMPRESSION: Mild glenohumeral arthrosis Senior Administrative Services Officer: [facility] Transcribe Date/Time: Nov 29 2020 10:37A Dictated by : ANNE VALDEZ MD This examination was interpreted and the report reviewed and electronically signed by: ANNE VALDEZ MD on Nov 29 2020 10:37AM EST [id number] [facility] US KIDNEY/BLADDERon 08-20-19 US KIDNEY/BLADDER * * *Final Report* * * DATE OF EXAM: Aug 19 2020 12:47PM VHU [id number] - US KIDNEY/BLADDER / PROCEDURE REASON: [...] NORMAL SONOGRAPHIC APPEARANCE OF KIDNEYS AND BLADDER. Senior Administrative Services Officer: [facility] MD Transcribe Date/Time: Aug 19 2020 12:49P Dictated by : FLORENTIN PATEL MD This examination was interpreted and the report reviewed and electronically signed by: FLORENTIN PATEL MD on Aug 19 2020 12:49PM EST [id number] [facility] XR HAND 3V PA/LAT/OBL BILon 04-02-2020 [...] than left hand and superimposed degenerative change. Senior Administrative Services Officer: [facility] Transcribe Date/Time: Apr 02 2020 10:18A Dictated by : EDDA PAUL MD This examination was interpreted and the report reviewed and electronically signed by: EDDA PAUL MD on Apr 02 2020 10:25AM EST [id number] [facility] CT LUMBAR SPINE WO CONTRASTo n [...] Mike Felipe MD 07/12/18 Final result Normal [facility] CT THORACIC SPINE WO CONTRAS Ton [...] Mike Felipe MD 07/12/18 Final result Normal [facility] Vital Signs Date Time Vital Sign Value Performing Clinician Bernardoi hceyenne 06-24-2023 14:34-0400 Body mass index (BMI) [Ratio] 29.92 kg/m2 Delmy Boyle MD Work Phone: [facility] 06-24-2023 14:34-0400 Body weight 105.69 kg Delmy Boyle MD Work Phone: [facility] 06-24-2023 14:34-0400 Diastolic blood pressure 87 mm[Hg] Delmy Boyle MD Work Phone: [facility] 06-24-2023 14:34-0400 Heart rate 89 /min Delmy Boyle MD Work Phone: [facility] 06-24-2023 14:34-0400 Respiratory rate 18 /min Delmy Boyle MD Work Phone: [facility] 06-24-2023 14:34-0400 SaO2% (BldA) [Mass fraction] 100 % Delmy Boyle MD Work Phone: [facility] 06-24-2023 14:34-0400 Systolic blood pressure 124 mm[Hg] Delmy Boyle MD Work Phone: [facility] 01-01-2022 11:34-0400 Body weight 99.79 kg Delmy Boyle MD Work Phone: [facility] 01-01-2022 11:34-0400 Diastolic blood pressure 65 mm[Hg] Delmy Boyle MD Work Phone: [facility] 01-01-2022 11:34-0400 Heart rate 65 /min Delmy Boyle MD Work Phone: [facility] 01-01-2022 11:34-0400 Systolic blood pressure 102 mm[Hg] Delmy Boyle MD Work Phone: [facility] 12-10-2021 15:30-0400 Diastolic blood pressure 71 mm[Hg] MD Leydi Aceves Work Phone: [facility] 12-10-2021 15:30-0400 Heart rate 70 /min MD Leydi Aceves Work Phone: [facility] 12-10-2021 15:30-0400 Respiratory rate 16 /min MD Leydi Aceves Work Phone: [facility] 12-10-2021 15:30-0400 SaO2% (BldA) [Mass fraction] 98 % MD eLydi Aceves Work Phone: [facility] 12-10-2021 15:30-0400 Systolic blood pressure 113 mm[Hg] MD Leydi Aceves Work Phone: [facility] 12-10-2021 07:30-0400 Body temperature 98 [degF] MD Leydi Aceves Work Phone: [facility] 12-08-2021 15:45-0400 Body height 190.5 cm MD Leydi Aceves Work Phone: [facility] 12-08-2021 08:56-0400 Body weight 99.79 kg MD Leydi Aceves Work Phone: [facility] 09-27-2021 21:38-0400 Heart rate 68 /min MD Leydi Aceves Work Phone: [facility] 09-27-2021 21:30-0400 Diastolic blood pressure 79 mm[Hg] MD Leydi Aceves Work Phone: [facility] [facility] 09-27-2021 21:30-0400 Respiratory rate 20 /min MD Leydi Aceves Work Phone: [facility] 09-27-2021 21:30-0400 SaO2% (BldA) [Mass fraction] 100 % MD Leydi Aceves Work Phone: [facility] 09-27-2021 21:30-0400 Systolic blood pressure 135 mm[Hg] MD Leydi Aceves Work Phone: [facility] 09-27-2021 18:31-0400 Body height 190.5 cm MD Leydi Aceves Work Phone: [facility] 09-27-2021 18:31-0400 Body temperature 98 [degF] MD Leydi Aceves Work Phone: [facility] 09-27-2021 18:31-0400 Body weight 99.79 kg MD Leydi Aceves Work Phone: [facility] Encounters Encounter Date Encounter Type Care Provider Facility Start: 06-24-2023 End: 06-24-2023 ambulatory LEYDI ACEVES Facility:[facility] Start: 06-24-2023 End: 06-24-2023 Patient encounter procedure Delmy Boyle MD Work Phone: Rheumatology Comment on above: Chronic tophaceous g out (Primary Dx); Encounter for long-term (current) use of medications; Stage 3 chronic kidney disease, unspecified whether stage 3a or 3b CKD (HCC); Idiopathic chronic gout of multiple sites with tophus Start: 06-21-2023 End: 06-21-2023 ambulatory DELMY BOYLE Facility:[facility] Start: 06-10-2023 End: 06-10-2023 ambulatory LEYDI ACEVES Not Available Start: 05-18-2023 End: 05-18-2023 ambulatory LEYDI ACEVES Not Available Start: 05-09-2023 End: 05-12-2023 ambulatory Nicola Leyva Facility:[facility] Start: 05-03-2023 End: 05-03-2023 ambulatory LEYDI ACEVES Not Available Start: 04-23-2023 ambulatory Nicola Castellon acility:[facility] Start: 04-05-2023 Refill Leydi Mansfield Work Phone: [facility] Start: 03-08-2023 End: 03-08-2023 ambulatory DELMY BOYLE Facility:[facility] Start: 03-04-2023 End: 03-04-2023 ambulatory DELMY BOYLE Facility:[facility] Start: 02-24-2023 End: 02-24-2023 Emergency department patient visit Ladi Huber Facility[facility] Start: 02-19-2023 End: 02-20-2023 ambulatory [facility] Start: 01-12-2023 End: 01-12-2023 ambulatory MIRI REES Not Available Start: 11-13-2022 ambulatory Delmy newton MD Work Phone: Rheumatology Comment on above: Prednisone Start: 11-13-2022 E-mail encounter fro m caregiver Delmy Boyle MD Work Phone: [facility] Start: 11-13-2022 Telephone encounter Delmy luna MD Work Phone: [facility] Comment on above: Patient Request Start: 08-14-2022 End: 08-14-2022 ambulatory DELMY BOYLE Facility:[facility] Start: 08-12-2022 End: 08-13-2022 ambulatory DELMY BOYLE Facility:[facility] Start: 07-24-2022 End: 07-24-2022 ambulatory MATIAS JOSUE . Facility:[facility] Start: 06-28-2022 End: 06-28-2022 ambulatory ZHAO LIBERTAD . Facility:[facility] Start: 06-25-2022 Refill Delmy newton [...] chronic g out of multiple sites with [facility] (Primary Dx); Encounter for long-term (current) use of medications; Stage 3 chronic kidney disease, unspecified whether stage 3a or 3b CKD (HCC) Start: 12-19-2021 Refill Delmy newton MD Work Phone: Rheumatology Comment on above: Refill Request Start: 12-07-2021 End: 12-10-2021 Evaluation and management of inpatient MD Leydi Aceves Work Phone: [facility] Start: 12-06-2021 End: 12-07-[address] LEYDI ACEVES Facility:[facility] Start: 10-19-2021 End: 10-19-2021 ambulatory ZHAO MAURER . Facility:[facility] Start: 09-27-2021 End: 09-27-2021 Emergency department patient visit MD Leydi Aceves Work Phone: [facility] Start: 09-27-2021 End: 09-27-2021 ambulatory ZHAO MAURER . Facility:[facility] Start: 08-05-2021 Orders Only Delmy newton MD Work Phone: Rheumatology Comment on above: [facility] Start: 07-12-2018 End: 07-13-2018 Emergency department patient visit LEYDI ACEVES [facility] Procedures Date Procedure Procedure Detail Performing Clinician Start: 08-19-2020 Adult depression screening assessment Delmy Boyle MD Work Phone: Start: 07-12-2018 Ct lumbar spine w/o contrast material LEYDI ACEVES Start: 07-12-2018 Ct thoracic spine w/ o contrast material LEYDI ACEVES Plan of Treatment Date Care Activity Detail Author Start: 06-01-2026 Urine microalbumin profile [facility] Start: 03-04-2024 Creatinine measurement Serum Creatinine [facility] Start: 01-04-2024 End: 01-04-2024 Patient encounter procedure 01/04/2024 8:20 AM EST Office Visit Rheumatology [address] [place] [address] [place] [address] [place] [address] FU 6-7 MON WITH Rheumatology Comment on above: FU 6-7 MON WITH Start: 10-31-2023 Influenza vaccination Influenza Vaccine (Season Ended) [facility] Start: 09-24-2023 End: 09-24-2023 Patient encounter procedure 09/24/2023 8:00 AM EDT Office Visit Rheumatology [address] [place] [address] Kelly Martell, RETOUCHING OPERATOR.CAN PATCHER [address] [place] [address] FU 3-4 MON WITH STEFANIA Rheumatology Comment on above: FU 3-4 MON WITH STEFANIA Start: 08-29-2023 Influenza vaccination Influenza Vaccine (#1) [facility] Comment on above: Postponed from 10/30/2022 (Other Patient Reasons) Start: 08-13-2023 Serum Creatinine Serum Creatinine [facility] Start: 03-01-2023 Behavioral Health Screening Behavioral Health Screening [facility] Start: 01-01-2023 BP CONTROLLED (<130/80) BP CONTROLLED (<130/80) [facility] in Start: 10-30-2022 Covid-19 Vaccine () Covid-19 Vaccine () [facility] Start: 10-30-2022 Influenza vaccination [facility] Start: 07-13-2022 End: 09-12-2022 Alanine aminotransferase [Enzymatic activity/volume] in Serum or Plasma ALT/SGPT Lab 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 Encounter for long-term (current) use of medications Expected: 07/13/2022 (Approximate), Expires: 09/12/2022 [facility] Work Phone: Comment on above: Expected: 07/13/2022 (Approximate), Expi res: 09/12/2022 Start: 07-13-2022 End: 09-12-2022 Albumin [Mass/volume] in Serum or Plasma ALBUMIN BLD Lab 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 Encounter for long-term (current) use of medications Expected: 07/13/2022 (Approximate), Expires: 09/12/2022 [facility] Work Phone: Comment on above: Expected: 07/13/2022 (Approximate), Expi res: 09/12/2022 Start: 07-13-2022 End: 09-12-2022 Aspartate aminotransferase [Enzymatic activity/volume] in Serum or Plasma AST/SGOT BLD Lab 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 Encounter for long-term (current) use of medications Expected: 07/13/2022 (Approximate), Expires: 09/12/2022 [facility] Work Phone: Comment on above: Expected: 07/13/2022 (Approximate), Expi res: 09/12/2022 Start: 07-13-2022 End: 09-12-2022 C reactive protein [Mass/volume] in Serum or Plasma C-REACTIVE PROTEIN (CRP) Lab 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 Encounter for long-term (current) use of medications Expected: 07/13/2022 (Approximate), Expires: 09/12/2022 [facility] Work Phone: Comment on above: Expected: 07/13/2022 (Approximate), Expi res: 09/12/2022 Start: 07-13-2022 End: 09-12-2022 CBC W Auto Differential panel - Blood CBC + DIFF Lab 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 Encounter for long-term (current) use of medications Expected: 07/13/2022 (Approximate), Expires: 09/12/2022 [facility] Work Phone: Comment on above: Expected: 07/13/2022 (Approximate), Expi res: 09/12/2022 Start: 07-13-2022 End: 09-12-2022 CREATININE BLD CREATININE BLD Lab 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 Encounter for long-term (current) use of medications Expected: 07/13/2022 (Approximate), Expires: 09/12/2022 [facility] Work Phone: Comment on above: Expected: 07/13/2022 (Approximate), Expi res: 09/12/2022 Start: 07-13-2022 End: 09-12-2022 Erythrocyte sedimentation rate SED RATE WESTERGREN Lab 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 Encounter for long-term (current) use of medications Expected: 07/13/2022 (Approximate), Expires: 09/12/2022 [facility] Work Phone: Comment on above: Expected: 07/13/2022 (Approximate), Expi res: 09/12/2022 Start: 07-13-2022 End: 09-12-2022 Urate [Mass/volume] in Serum or Plasma URIC ACID BLOOD Lab Routine Idiopathic chronic gout of multiple sites with [facility] Encounter for long-term (current) use of medications Expected: 07/13/2022 (Approximate), Expires: 09/12/2022 [facility] Work Phone: Comment on above: Expected: 07/13/2022 (Approximate), Expi res: 09/12/2022 Start: 04-23-2022 SERUM CREATININE SERUM CREATININE [facility] Start: 03-01-2022 DEPRESSION ASSESSMENT DEPRESSION ASSESSMENT [facility] Start: 12-10-2021 [facility] Start: 12-07-2021 Hospital admission [facility] Start: 12-07-2021 Referral to [facility] Start: 10-30-2021 Influenza vaccination [facility] Start: 08-19-2021 Adult depression screening assessment DEPRESSION SCREENING [facility] Start: 03-01-2021 DEPRESSION ASSESSMENT DEPRESSION ASSESSMENT [facility] Start: 2009 Hepatitis B Vaccine (1 of 3 - 19+ 3-dose series) Hepatitis B Vaccine (1 of 3 - 19+ 3-dose series) [facility] Start: 02-26-2008 ANNUAL PCP TEAM CHRONIC DISEASE VISIT ANNUAL PCP TEAM CHRONIC DISEASE VISIT [facility] Start: 02-26-2008 BP CONTROLLED (<130/80) BP CONTROLLED (<130/80) [facility] in Start: 02-26-2008 HIV SCREENING HIV SCREENING [facility] Start: 02-26-2008 HIV screening HIV Screening [facility] Start: 1995 COVID-19 VACCINE (#1) COVID-19 VACCINE (#1) [facility] Start: 1990 COVID-19 VACCINE (#1) COVID-19 VACCINE (#1) [facility] Start: 1990 HEPATITIS B (1 of 3 - 3-dose series) HEPATITIS B (1 of 3 - 3-dose series) [facility] Start: 1990 Hepatitis B Vaccine (1 of 3 - 3-dose series) Hepatitis B Vaccine (1 of 3 - 3-dose series) [facility] End: 06-23-2024 Alanine aminotransferase [Enzymatic activity/volume] in Serum or Plasma ALANINE AMINOTRANSFERASE / SGPT Lab Routine Chronic tophaceous gout Encounter for long-term (current) use of medications Every 3 months for 5 Occurrences starting 06/24/2023 until 06/23/2024 [facility] Comment on above: Every 3 months for 5 Occurrences startin g 06/24/2023 until 06/23/2024 End: 06-23-2024 Albumin [Mass/volume] in Serum or Plasma ALBUMIN Lab Routine Chronic tophaceous gout Encounter for long-term (current) use of medications Every 3 months for 5 Occurrences starting 06/24/2023 until 06/23/2024 [facility] Comment on above: Every 3 months for 5 Occurrences startin g 06/24/2023 until 06/23/2024 End: 06-23-2024 Aspartate aminotransferase [Enzymatic activity/volume] in Serum or Plasma ASPARTATE AMINOTRANSFERASE/SGOT Lab Routine Chronic tophaceous gout Encounter for long-term (current) use of medications Every 3 months for 5 Occurrences starting 06/24/2023 until 06/23/2024 [facility] Work Phone: Comment on above: Every 3 months for 5 Occurrences startin g 06/24/2023 until 06/23/2024 End: 06-23-2024 C reactive protein [Mass/volume] in Serum or Plasma C-REACTIVE PROTEIN Lab Routine Chronic tophaceous gout Encounter for long-term (current) use of medications Every 3 months for 5 Occurrences starting 06/24/2023 until 06/23/2024 [facility] Comment on above: Every 3 months for 5 Occurrences startin g 06/24/2023 until 06/23/2024 End: 06-23-2024 CBC W Auto Differential panel - Blood COMPLETE BLOOD COUNT AND DIFFERENTIAL Lab Routine Chronic tophaceous gout Encounter for long-term (current) use of medications Every 3 months for 5 Occurrences starting 06/24/2023 until 06/23/2024 [facility] Comment on above: Every 3 months for 5 Occurrences startin g 06/24/2023 until 06/23/2024 End: 06-23-2024 CREATININE BLD CREATININE BLD Lab Routine Chronic tophaceous gout Encounter for long-term (current) use of medications Every 3 months for 5 Occurrences starting 06/24/2023 until 06/23/2024 [facility] Comment on above: Every 3 months for 5 Occurrences startin g 06/24/2023 until 06/23/2024 End: 06-23-2024 Erythrocyte sedimentation rate SEDIMENTATION RATE, WESTERGREN Lab Routine Chronic tophaceous gout Encounter for long-term (current) use of medications Every 3 months for 5 Occurrences starting 06/24/2023 until 06/23/2024 [facility] Comment on above: Every 3 months for 5 Occurrences startin g 06/24/2023 until 06/23/2024 Patient Education [facility] Work Phone: Patient referral [facility] Work Phone: End: 06-23-2024 Urate [Mass/volume] in Serum or Plasma URIC ACID Lab Routine Chronic tophaceous gout Encounter for long-term (current) use of medications Every 6 months for 3 Occurrences starting 06/24/2023 until 06/23/2024 [facility] Comment on above: Every 6 months for 3 Occurrences startin g 06/24/2023 until 06/23/2024 [facility] Immunizations Immunization Date Immunization Notes Care Provider Fa cility 10-13-2018 influenza virus vacc ine, unspecified formulation Delmy Boyle MD Work Phone: [facility] 10-13-2002 measles, mumps and rubella virus vaccine Leydi Aceves MD Work Phone: [facility] 10-20-1993 diphtheria, tetanus toxoids and acellular pertussis vaccine, unspecified formulation Leydi Aceves MD Work Phone: [facility] 10-20-1993 haemophilus influenz ae type b vaccine, conjugate unspecified formulation Leydi Aceves MD Work Phone: [facility] 10-20-1993 trivalent poliovirus vaccine, live, oral Leydi Aceves MD Work Phone: [facility] 07-26-1991 diphtheria, tetanus toxoids and pertussis vaccine Leydi Aceves MD Work Phone: [facility] 07-26-1991 haemophilus influenz ae type b vaccine, conjugate unspecified formulation Leydi Aceves MD Work Phone: [facility] 07-26-1991 measles, mumps and rubella virus vaccine Leydi Aceves MD Work Phone: [facility] 02-03-1991 diphtheria, tetanus toxoids and pertussis vaccine Leydi Aceves MD Work Phone: [facility] 02-03-1991 haemophilus influenz ae type b vaccine, conjugate unspecified formulation Leydi Aceves MD Work Phone: [facility] 02-03-1991 trivalent poliovirus vaccine, live, oral Leydi Aceves MD Work Phone: [facility] 1990 diphtheria, tetanus toxoids and pertussis vaccine Leydi Aceves MD Work Phone: [facility] 1990 haemophilus influenz ae type b vaccine, conjugate unspecified formulation Leydi Aceves MD Work Phone: [facility] 1990 trivalent poliovirus vaccine, live, oral Leydi Aceves MD Work Phone: [facility] Payers Date Payer Category Payer Self-pay 2021 Medicaid [employer] [id number] 2021-Present [phone] [address] [place] [address] Medicaid [id number] 2021 Medicaid [id number] 2018 Unknown [id number] 1990 Unknown [id number] 1990 Unknown [id number] [id number] 1990 Unknown [id number] [id number] 1990 Unknown [id number] [id number] 1990 Unknown [id number] [id number] 1990 Unknown [id number] [id number]3 1990 Unknown [id number] 2.16.840.1.708732.3.579.2.593 1990 Unknown [id number] 2.16.840.1.874758.3.579.2.593 1990 Unknown [id number] 2.16.840.1.514735.3.579.2.593 1990 Unknown [id number] 2.16.840.1.008351.3.579.2.593 1990 Unknown [id number] 2.16.840.1.555169.3.579.2.593 1990 Unknown [id number] 2.16.840.1.411529.3.579.2.727 1990 Unknown [id number] 2.16.840.1.141051.3.579.2.1259 1990 Unknown [id number] 2.16.840.1.718842.3.579.2.1259 1990 Unknown [id number] 2.16.840.1.058204.3.579.2.1259 1990 Unknown [id number] [id number] 1959 Medicaid [id number] 1959 Unknown [id number] [address] [facility] [id number] Unknown [id number] Unknown [id number] Social History Date Type Detail Facility Start: 05-04-2017 End: 01-01-2022 Tobacco smoking status AZIS Never smoked tobacco [facility] Start: 05-04-2017 End: 01-01-2022 Tobacco use and exposure User of smokeless tobacco [facility] History of tobacco use Chews Tobacco [facility] Start: 1990 Sex Assigned At Male [facility] Start: 12-08-2021 Tobacco smoking status NHIS Smoker (finding) [facility] Start: 12-22-2021 End: 01-01-2022 Exposure to SARS-CoV-2 (event) Not sure [facility] Start: 08-13-2022 End: 08-14-2022 History of Social function [facility] Start: 08-13-2022 End: 08-14-2022 Tobacco use panel [facility] Adult Depression Screening Assessment 4 [facility] Start: 11-09-2019 Gender identity Identifies as male gender (finding) [facility] Start: 11-09-2019 Sexual orientation Heterosexual (finding) [facility] Start: 09-14-2022 Tobacco use and exposure Smokeless tobacco non-user [facility] Start: 02-16-2023 Alcohol intake Current drinker of alcohol (finding) [facility] Within the last year , have you been afraid of your partner or ex-partner? No [facility] Do you belong to any clubs or organizations such as scientology groups, unions, fraternal or athletic groups, or [...] Caffeine intake: 1-2 cups per day soda/pop [facility] Goals Date Patient Goal Desired Activity /State Functional Status Date Assessment Result Facility 12-10-2021 Functional status Patient at Baseline [facility] Work Phone: 12-07-2021 Functional status Disability Sta tus Patient at Baseline [facility] Work Phone: Mental Status Date Assessment Result Facility 12-10-2021 Cognitive function Cognitive Sta tus Patient at Baseline [facility] Work Phone: Clinical Notes 04-25-2017 to 06-24-2023 Delmy Boyle MD - 06/24/2023 3:00 PM EDTPatient InstructionsTelephone Encounter - María Sepulveda MA - 04/05/2023 8:57 AM ESTTelephone Encounter - María Sepulveda MA - 04/05/2023 8:57 AM EST Note Date & Type Note Facility 06-24-2023 Note HNO ID: [id number] Author: DELMY BOYLE MD Service: ? Author Type: Physician Type: Progress Notes Filed: 06/24/2023 15:09 Note Text: DX: chronic tophaceous gout, possible [...] arthritic flares once every 4 months. 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 Jaime in [place] who did diagnostic knee aspiration which according to patient was positive for uric acid crystals. Treated with steroids and continued allopurinol. He has not seen Dr. Jaime since 2014. In 2014, he was hospitalized in [place] for acute polyarthritis. Saw shellfish bed worker while in hospital who told him that he possibly had RA. Discharged on steroids. His PCP switched him from allopurinol to Uloric Jan 2017. He also takes colchicine prn. No reduction in frequency or severity of his joint flares with Uloric. In 2017, he has been hospitalized 7-8 times for acute joint flares. Each time he is treated with steroids. Hospitalized at [facility] Apr 2017 for acute flare [...] PMH: possible seronegative RA, CKD On allopurinol 700 qam+ colchicine 0.6 mg every other day PLAN: 1. TOPHACEOUS GOUT -off Uloric with increase in his SUA from 5.7 to 11.1 mg/dL. He is unable to afford OOP costs of Uloric. -At today's visit, based on my clinical impression, the patient's disease appears to be clinically improved. -serum uric acid improved but not at goal. Advised to increase allopurinol to 750 mg daily -continue prophylactic colchicine -he requests prescription for Tramadol. I provided prescription for limited supply of Tramadol for the short term use only (no refills) . -I asked that he have labs done at least 3-4 days prior to next appointment (lab orders in EMR) 2. POSSIBLE SERONEGATIVE RA -methotrexate 20 mg weekly held June 2019 due to anemia and elevated Cr. -no synovitis on exam -hold off on [...] shoulder surgery by Dr. Tc Coffey at [facility]. No post op complications. Was in PT 4. GENERAL HEALTH MAINTENANCE -continue follow up on his CKD with nephrology -he will follow up with his PCP for his general health issues FU 3 mon with STEFANIA AND FU 6-7 mon with me, sooner if needed INTERVAL HISTORY -he increase allopurinol from 650 mg daily to 700 mg daily after JOSY. Tolerating this higher dose without issues. He is taking allopurinol and colchicine consistently except when he went on vacation a couple of month ago. -no gout flares since JOSY. He stopped drinking ETOH several months ago. -he has daily aches and stiffness of the knee and hands. The aches will subside with movement but the stiffness is there all day. He has some symptoms in his elbows in the morning but it will go away as the day progress. -no longer with swelling of the joints. Swollen joints: as above. EMS:lasting at least 60 minutes Review of Systems CONSTITUTION: Negative for: Fever and Recent weight change HEENT: Negative for: Nosebleeds, Mouth sores, Trouble swallowing and Dry mouth RESPIRATORY: Negative for: Cough, Shortness of breath and Pain with breathing GASTROINTESTINAL: Negative for: Melena, Diarrhea, Heartburn and Abdominal pain MUSCULOSKELETAL: Positive for: Arthralgias, Joint swelling and Morning Joint Stiffness Negative for: Myalgias and Muscle weakness NEUROLOGICAL: Negative for: Headaches, Numbness and Memory loss SKIN: Negative for: Rash, Sun Sensitive Rash, Skin changes, Hair loss and Nail changes EYES: Negative for: Eye pain, Eye r (more content not included)... [facility] 06-24-2023 History of Present illness Narrative Images from [...] arthritic flares once every 4 months. 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 Jaime in [place] who did diagnostic knee aspiration which according to patient was positive for uric acid crystals. Treated with steroids and continued allopurinol. He has not seen Dr. Jaime since 2014. In 2014, he was hospitalized in [place] for acute polyarthritis. Saw shellfish bed worker while in hospital who told him that he possibly had RA. Discharged on steroids. His PCP switched him from allopurinol to Uloric Jan 2017. He also takes colchicine prn. No reduction in frequency or severity of his joint flares with Uloric. In 2017, he has been hospitalized 7-8 times for acute joint flares. Each time he is treated with steroids. Hospitalized at [facility] Apr 2017 for acute flare [...] PMH: possible seronegative RA, CKD On allopurinol 700 qam+ colchicine 0.6 mg every other day PLAN: 1. TOPHACEOUS GOUT -off Uloric with increase in his SUA from 5.7 to 11.1 mg/dL. He is unable to afford OOP costs of Uloric. -At today's visit, based on my clinical impression, the patient's disease appears to be clinically improved. -serum uric acid improved but not at goal. Advised to increase allopurinol to 750 mg daily -continue prophylactic colchicine -he requests prescription for Tramadol. I provided prescription for limited supply of Tramadol for the short term use only (no refills) . -I asked that he have labs done at least 3-4 days prior to next appointment (lab orders in EMR) 2. POSSIBLE SERONEGATIVE RA -methotrexate 20 mg weekly held June 2019 due to anemia and elevated Cr. -no synovitis on exam -hold off on [...] shoulder surgery by Dr. Tc Coffey at [facility]. No post op complications. Was in PT 4. GENERAL HEALTH MAINTENANCE -continue follow up on his CKD with nephrology -he will follow up with his PCP for his general health issues FU 3 mon with STEFANIA AND FU 6-7 mon with me, sooner if needed INTERVAL HISTORY -he increase allopurinol from 650 mg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
--- NOTE | 2023-07-03 13:27 | PC.NURSE ---
Patient reports pain all over , worse in right arm. History of RA and gout.
[2023-07-03] MEDS: MORPHINE SULFATE 2 MG/ML SYRINGE IV (13:48)
[2023-07-03] MEDS: KETOROLAC TROMETHAMINE 30 MG/ML VIAL 15 MG IVP (13:48)
[2023-07-03] MEDS: METHYLPREDNISOLONE SOD SUCC PF 125 MG/2 ML VIAL IVP (13:48)
--- NOTE | 2023-07-03 14:17 | ED_ITS ---
HPI HPI - General Adult General Chief complaint: Extremity Problem, Nontraumatic Stated complaint: ARTHRITIS FLARE UP SYMPTOMS Time Seen by Provider: 07/03/23 13:22 Source: patient Mode of arrival: walk-in Limitations: no limitations History of Present Illness HPI narrative: 33-year-old male to the emergency department with chief complaint of diffuse joint pain. Patient reports a history of rheumatoid arthritis. He reports this is typical of an RA flare for him. He reports he typically responds well to a dose of pain medication, steroids and a steroid taper. He denies any fever, sweats, chills. No red warm swollen joints. Diffuse joint pain worse in the upper extremities. No trauma or falls. Related Data Home Medications ?Medication ?Instructions ?Recorded ?Confirmed amlodipine 10 mg tablet 10 mg PO QDAY 08/31/22 07/03/23 celecoxib 100 mg capsule 100 mg PO DAILY PRN RA flare 08/31/22 07/03/23 clonidine HCl 0.1 mg tablet 0.1 mg PO BID 08/31/22 07/03/23 colchicine 0.6 mg tablet 0.6 mg PO .every other 08/31/22 07/03/23 quetiapine 50 mg tablet See Rx Instructions PO .hs 08/31/22 07/03/23 tramadol 50 mg tablet 50 mg PO Q6H PRN pain 08/31/22 07/03/23 gabapentin 300 mg capsule 300 mg PO TID 02/15/23 07/03/23 (Neurontin) cyclobenzaprine 10 mg tablet 10 mg PO TID PRN muscle spasm 03/06/23 07/03/23 allopurinol 100 mg tablet 100 mg PO .QD 06/03/23 07/03/23 allopurinol 300 mg tablet 300 mg PO BID 06/03/23 07/03/23 buspirone 5 mg tablet 5 mg PO BID 06/03/23 07/03/23 cariprazine 1.5 mg capsule 1.5 mg PO .QD 06/03/23 07/03/23 (Vraylar) escitalopram oxalate 20 mg tablet 20 mg PO .QD 06/03/23 07/03/23 Previous Rx's ?Medication ?Instructions ?Recorded prednisone 10 mg tablet 10 mg PO DAILY #42 tabs 07/03/23 Allergies Allergy/AdvReac Type Severity Reaction Status Date / Time No Known Drug Allergies Allergy Verified 07/03/23 13:15 Opioid HPI Opioid Management Most Recent Opioid Data: Last Pain Scale 5 04/21/23 12:33 Last ORT Total Score 10 06/03/23 01:22 Last ORT Risk Category High Risk 06/03/23 01:22 Ur Phencyclidine Scrn Negative (NEGATIVE) 06/02/23 22:15 Review of Systems ROS Status of ROS 10 or more systems reviewed and unremark able except as noted in h istory and below PFSH PFSH Medical History Acute hypernatremia ?E87.0 - Hyperosmolality and hypernatremia (ICD-10) Altered mental status ?R41.82 - Altered mental status, unspecified (ICD-10) Sepsis ?A41.9 - Sepsis, unspecified organism (ICD-10) Acute kidney injury ?N17.9 - Acute kidney failure, unspecified (ICD-10) MONO (generalized anxiety disorder) ?F41.1 - Generalized anxiety disorder (ICD-10) Rheumatoid arthritis ?M06.9 - Rheumatoid arthritis, unspecified (ICD-10) Benign essential hypertension ?I10 - Essential (primary) hypertension (ICD-10) Gouty arthritis ?M10.9 - Gout, unspecified (ICD-10) Acute postoperative pain of knee ?G89.18 - Other acute postprocedural pain (ICD-10) ?M25.569 - Pain in unspecified knee (ICD-10) Visit for wound check ?Z51.89 - Encounter for other specified aftercare (ICD-10) Septic prepatellar bursitis of right knee ?M71.161 - Other infective bursitis, right knee (ICD-10) Acute viral syndrome ?B34.9 - Viral infection, unspecified (ICD-10) Diarrhea ?R19.7 - Diarrhea, unspecified (ICD-10) Rheumatoid arthritis flare ?M06.9 - Rheumatoid arthritis, unspecified (ICD-10) Polyarthralgia ?M25.50 - Pain in unspecified joint (ICD-10) Rheumatoid arthritis flare ?M06.9 - Rheumatoid arthritis, unspecified (ICD-10) Weakness ?R53.1 - Weakness (ICD-10) Mild shortness of breath ?R06.02 - Shortness of breath (ICD-10) Headache ?R51.9 - Headache, unspecified (ICD-10) Polyarthralgia ?M25.50 - Pain in unspecified joint (ICD-10) Flare of rheumatoid arthritis ?M06.9 - Rheumatoid arthritis, unspecified (ICD-10) Arthralgia ?M25.50 - Pain in unspecified joint (ICD-10) Drug-seeking behavior ?Z76.5 - Malingerer [conscious simulation] (ICD-10) Surgical History (Updated 04/20/23 @ 23:12 by Arpil Sierra RN) Total knee replacement status ?Z96.659 - Presence of unspecified artificial knee joint (ICD-10) H/O shoulder surgery ?Z98.890 - Other specified postprocedural states (ICD-10) Social History (Updated 04/20/23 @ 23:15 by April Sierra RN) Smoking status: Never smoker Nicotine containing products detail: chew tobacco Highest level of school completed/degree received: decline to answer Exam Narrative Exam Narrative: VITALS: I have reviewed the triage vital signs. GENERAL: Well developed, well appearing adult in no acute distress. NEURO: Alert and oriented. Moves all extremities. Face is symmetric and expressive. EYES: PERRL. No scleral icterus or conjunctival injection. No discharge. HENT: Normocephalic, atraumatic. Hearing is grossly intact. Nares grossly patent and without discharge. Mucous membranes moist. NECK: No JVD. Patient moves neck without restriction. CARDIO: Rhythm regular. Normal rate. No murmur, rub, or gallop. Pulses equal bilaterally in the upper and lower extremity. No lower extremity edema. PULM: Lungs clear to auscultation in all keen. No wheezes, rales, or rhonchi. No conversational dyspnea. No splinting, stridor, or accessory muscle use. GI/: Abdomen is soft and non-tender. Normoactive bowel sounds. EXTREMITIES: Symmetric muscle bulk. No joint swelling. No clubbing, cyanosis, or deformity. All joints with normal range of motion. SKIN: Warm and dry. Normal turgor. No rash or lesions appreciated. PSYCH: Mood, affect, and interaction is appropriate to the setting. Constitutional Vital Signs, click to edit/add: Last Vital Signs Temp 97.6 F 07/03/23 13:15 Pulse 84 07/03/23 13:15 Resp 20 07/03/23 13:15 BP 140/90 07/03/23 13:15 Pulse Ox 99 07/03/23 13:15 O2 Del Method Room Air 07/03/23 13:15 Course Vital Signs Vital signs: Vital Signs Temperature 97.6 F 07/03/23 13:15 Pulse Rate 84 07/03/23 13:15 Respiratory Rate 20 07/03/23 13:15 Blood Pressure 140/90 07/03/23 13:15 Pulse Oximetry 99 07/03/23 13:15 Oxygen Delivery Method Room Air 07/03/23 13:15 Temperature 97.6 F 07/03/23 13:15 Pulse Rate 84 07/03/23 13:15 Respiratory Rate 20 07/03/23 13:15 Blood Pressure 140/90 07/03/23 13:15 Pulse Oximetry 99 07/03/23 13:15 Oxygen Delivery Method Room Air 07/03/23 13:15 Medical Decision Making MDM Narrative Medical decision making narrative: Well-appearing 33-year-old male to the emergency Department chief complaint of diffuse joint pain. Vital stable, the patient is afebrile. There is no evidence of septic arthritis in any of the affected joints. Toradol, morphine, Cytomel drug given in the emergency department. He is given a steroid taper. He'll follow-up with his RA doctor at [facility]. Questions were discussed. All questions were answered. The patient was discharged home. Discharge Plan Discharge Stand Alone Forms: Portal Instructions Chief Complaint: Extremity Problem, Nontraumatic Clinical Impression: Joint pain Patient Disposition: Home, Self-Care Time of Disposition Decision: 13:35 Condition: Good Mode of Transportation: Private Vehicle Prescriptions / Home Meds: New prednisone 10 mg tablet 10 mg PO DAILY Qty: 42 0RF Rx Instructions: Take six Tablets daily for two days. Take five tablets daily for two days. Take four tablets daily for two days. Take three tablets daily for two days. Take two tablets daily for two days. Take one tablet daily for two days. No Action gabapentin [Neurontin] 300 mg capsule 300 mg PO TID allopurinol 100 mg tablet 100 mg PO .QD Patient Comments: TOTAL DOSE IS 400MG QD buspirone 5 mg tablet 5 mg PO BID Vraylar 1.5 mg capsule 1.5 mg PO .QD escitalopram oxalate 20 mg tablet 20 mg PO .QD allopurinol 300 mg tablet 300 mg PO BID tramadol 50 mg tablet 50 mg PO Q6H PRN (Reason: pain) quetiapine 50 mg tablet See Rx Instructions PO .hs Patient Comments: per pt. 50mg with 25mg Rx Instructions: 75 orally HS; colchicine 0.6 mg tablet 0.6 mg PO .every other clonidine HCl 0.1 mg tablet 0.1 mg PO BID celecoxib 100 mg capsule 100 mg PO DAILY PRN (Reason: RA flare) amlodipine 10 mg tablet 10 mg PO QDAY cyclobenzaprine 10 mg tablet 10 mg PO TID PRN (Reason: muscle spasm) Print Language: Icelandic Instructions: Arthritis (ED) Referrals: LEYDI ACEVES [Primary Care Provider] - 1 week Discharge Date/Time: 07/03/23 14:14
== END 2023-07-03 14:14 | disposition home or self-care (01) ==
PROVIDERS: Emergency Provider Student in an Organized Health Care Education/Training Program; PCP Family Medicine
DX: M25.50 Pain in unspecified joint (principal); M06.9 Rheumatoid arthritis, unspecified; F41.1 Generalized anxiety disorder; I10 Essential (primary) hypertension; F17.220 Nicotine dependence, chewing tobacco, uncomplicated; Z96.659 Presence of unspecified artificial knee joint; Z98.890 Other specified postprocedural states; Z79.899 Other long term (current) drug therapy
CPT/HCPCS: 96374; 96375; 99284; J2919

== ENCOUNTER 2023-08-31 15:19 | Emergency (ER) | payer OTHER, SELFPAY ==
[2023-08-31 15:28] VITALS: BP 120/82; PULSE 92; TEMP 36.6; O2SAT 96; BMI 28.2
--- NOTE | 2023-08-31 15:37 | ED.EXTPRO1 ---
HPI - Extremity Problem General Chief complaint: Extremity Problem, Nontraumatic Stated complaint: Overall Pain, Hx Arthritis Time Seen by Provider: 08/31/23 15:24 Source: patient Mode of arrival: walk-in History of Present Illness HPI Narrative: 33-year-old male who has a history of rheumatoid arthritis presents to the emergency department for multiple painful joints. In particular his right third MCP joint and his right knee are hurting. There is been no trauma. He states he gets a flareup like this from time to time. He contacted his supervisor hand workers in [place] and they would not send in a prescription for steroids unless he was seen. No fever or injury. It has been hurting for a few days and the pain is moderate to severe. Related Data Home Medications ?Medication ?Instructions ?Recorded ?Confirmed amlodipine 10 mg tablet 10 mg PO QDAY 08/31/22 07/03/23 celecoxib 100 mg capsule 100 mg PO DAILY PRN RA flare 08/31/22 07/03/23 clonidine HCl 0.1 mg tablet 0.1 mg PO BID 08/31/22 07/03/23 colchicine 0.6 mg tablet 0.6 mg PO .every other 08/31/22 07/03/23 quetiapine 50 mg tablet See Rx Instructions PO .hs 08/31/22 07/03/23 tramadol 50 mg tablet 50 mg PO Q6H PRN pain 08/31/22 07/03/23 gabapentin 300 mg capsule 300 mg PO TID 02/15/23 07/03/23 (Neurontin) cyclobenzaprine 10 mg tablet 10 mg PO TID PRN muscle spasm 03/06/23 07/03/23 allopurinol 100 mg tablet 100 mg PO .QD 06/03/23 07/03/23 allopurinol 300 mg tablet 300 mg PO BID 06/03/23 07/03/23 buspirone 5 mg tablet 5 mg PO BID 06/03/23 07/03/23 cariprazine 1.5 mg capsule 1.5 mg PO .QD 06/03/23 07/03/23 (Vraylar) escitalopram oxalate 20 mg tablet 20 mg PO .QD 06/03/23 07/03/23 Previous Rx's ?Medication ?Instructions ?Recorded prednisone 10 mg tablet 10 mg PO DAILY #42 tabs 07/03/23 prednisone 10 mg tablet See Rx Instructions .Route 08/31/23 .COMPLEX #30 tabs Allergies Allergy/AdvReac Type Severity Reaction Status Date / Time No Known Drug Allergies Allergy Verified 07/03/23 13:15 Review of Systems ROS Narrative A ten point review of systems is negative except as noted above. PFSH PFSH Medical History Acute hypernatremia ?E87.0 - Hyperosmolality and hypernatremia (ICD-10) Altered mental status ?R41.82 - Altered mental status, unspecified (ICD-10) Sepsis ?A41.9 - Sepsis, unspecified organism (ICD-10) Acute kidney injury ?N17.9 - Acute kidney failure, unspecified (ICD-10) MONO (generalized anxiety disorder) ?F41.1 - Generalized anxiety disorder (ICD-10) Rheumatoid arthritis ?M06.9 - Rheumatoid arthritis, unspecified (ICD-10) Benign essential hypertension ?I10 - Essential (primary) hypertension (ICD-10) Gouty arthritis ?M10.9 - Gout, unspecified (ICD-10) Acute postoperative pain of knee ?G89.18 - Other acute postprocedural pain (ICD-10) ?M25.569 - Pain in unspecified knee (ICD-10) Visit for wound check ?Z51.89 - Encounter for other specified aftercare (ICD-10) Septic prepatellar bursitis of right knee ?M71.161 - Other infective bursitis, right knee (ICD-10) Acute viral syndrome ?B34.9 - Viral infection, unspecified (ICD-10) Diarrhea ?R19.7 - Diarrhea, unspecified (ICD-10) Rheumatoid arthritis flare ?M06.9 - Rheumatoid arthritis, unspecified (ICD-10) Polyarthralgia ?M25.50 - Pain in unspecified joint (ICD-10) Rheumatoid arthritis flare ?M06.9 - Rheumatoid arthritis, unspecified (ICD-10) Weakness ?R53.1 - Weakness (ICD-10) Mild shortness of breath ?R06.02 - Shortness of breath (ICD-10) Headache ?R51.9 - Headache, unspecified (ICD-10) Polyarthralgia ?M25.50 - Pain in unspecified joint (ICD-10) Flare of rheumatoid arthritis ?M06.9 - Rheumatoid arthritis, unspecified (ICD-10) Arthralgia ?M25.50 - Pain in unspecified joint (ICD-10) Drug-seeking behavior ?Z76.5 - Malingerer [conscious simulation] (ICD-10) Surgical History (Updated 04/20/23 @ 23:12 by April Sierra RN) Total knee replacement status ?Z96.659 - Presence of unspecified artificial knee joint (ICD-10) H/O shoulder surgery ?Z98.890 - Other specified postprocedural states (ICD-10) Social History (Updated 04/20/23 @ 23:15 by April Sierra RN) Smoking status: Never smoker Nicotine containing products detail: chew tobacco Highest level of school completed/degree received: decline to answer Exam Narrative Exam Narrative: Nurses note and vital signs reviewed and patient is not hypoxic. General: The patient appears well and in no apparent distress. Skin: Warm, dry, no pallor noted. There is no rash noted. Head: Normocephalic, atraumatic Eye: Normal conjunctiva, no drainage Ears, Nose, Mouth, and Throat: oral mucosa is moist. Nares patent. Cardiovascular: Regular Rate and Rhythm Respiratory: Patient is in no distress, no accessory muscle use, lungs are clear to auscultation, no wheezing, rales or rhonchi Back: non-tender GI: Soft and nontender Musculoskeletal: He has mild swelling in the right third MCP joint. There is no open area or drainage or erythema. No joint is warm to touch. Neurological: A&O, normal speech Psychiatric: Cooperative Constitutional Vital Signs, click to edit/add: Last Vital Signs Temp 98 F 08/31/23 15:28 Pulse 92 H 08/31/23 15:28 Resp 16 08/31/23 15:28 BP 120/82 08/31/23 15:28 Pulse Ox 96 08/31/23 15:28 Course Vital Signs Vital signs: Vital Signs Temperature 98 F 08/31/23 15:28 Pulse Rate 92 H 08/31/23 15:28 Respiratory Rate 16 08/31/23 15:28 Blood Pressure 120/82 08/31/23 15:28 Pulse Oximetry 96 08/31/23 15:28 Temperature 98 F 08/31/23 15:28 Pulse Rate 92 H 08/31/23 15:28 Respiratory Rate 16 08/31/23 15:28 Blood Pressure 120/82 08/31/23 15:28 Pulse Oximetry 96 08/31/23 15:28 MDM - Extremity (Nontraumatic) MDM Narrative Medical decision making narrative: He was given IM Toradol and morphine and prescribed prednisone and he will follow-up with his supervisor hand workers. Treatment diagnosis and follow-up were discussed with the patient. I have no clinical suspicion of a septic joint. Differential Diagnosis Differential diagnosis: Likely other (Rheumatoid arthritis, septic joint) Discharge Plan Discharge Stand Alone Forms: Portal Instructions Chief Complaint: Extremity Problem, Nontraumatic Clinical Impression: Rheumatoid arthritis flare Patient Disposition: Home, Self-Care Time of Disposition Decision: 15:36 Condition: Good Mode of Transportation: Private Vehicle Prescriptions / Home Meds: New prednisone 10 mg tablet See Rx Instructions .ROUTE .COMPLEX Qty: 30 0RF Rx Instructions: 4 by mouth daily for three days then 3 by mouth daily for three days then 2 by mouth daily for three days then 1 by mouth daily for three days No Action gabapentin [Neurontin] 300 mg capsule 300 mg PO TID allopurinol 100 mg tablet 100 mg PO .QD Patient Comments: TOTAL DOSE IS 400MG QD buspirone 5 mg tablet 5 mg PO BID Vraylar 1.5 mg capsule 1.5 mg PO .QD escitalopram oxalate 20 mg tablet 20 mg PO .QD allopurinol 300 mg tablet 300 mg PO BID prednisone 10 mg tablet 10 mg PO DAILY Qty: 42 0RF Rx Instructions: Take six Tablets daily for two days. Take five tablets daily for two days. Take four tablets daily for two days. Take three tablets daily for two days. Take two tablets daily for two days. Take one tablet daily for two days. tramadol 50 mg tablet 50 mg PO Q6H PRN (Reason: pain) quetiapine 50 mg tablet See Rx Instructions PO .hs Patient Comments: per pt. 50mg with 25mg Rx Instructions: 75 orally HS; colchicine 0.6 mg tablet 0.6 mg PO .every other clonidine HCl 0.1 mg tablet 0.1 mg PO BID celecoxib 100 mg capsule 100 mg PO DAILY PRN (Reason: RA flare) amlodipine 10 mg tablet 10 mg PO QDAY cyclobenzaprine 10 mg tablet 10 mg PO TID PRN (Reason: muscle spasm) Print Language: [place] Instructions: Rheumatoid Arthritis (ED) Referrals: LEYDI ACEVES [Primary Care Provider] - 1 week
[2023-08-31] MEDS: KETOROLAC TROMETHAMINE 60 MG/2 ML VIAL IM (16:23)
[2023-08-31] MEDS: MORPHINE SULFATE 4 MG/ML VIAL 10 MG IM (16:23)
[2023-08-31 16:36] VITALS: BP 118/72; PULSE 88; O2SAT 100
== END 2023-08-31 16:37 | disposition home or self-care (01) ==
PROVIDERS: Emergency Provider Emergency Medicine; PCP Family Medicine
DX: F17.220 Nicotine dependence, chewing tobacco, uncomplicated (principal); M06.9 Rheumatoid arthritis, unspecified
CPT/HCPCS: 96372; 99284; J1885; J2270

== ENCOUNTER 2023-09-03 18:30 | Emergency (ER) | payer OTHER, SELFPAY ==
[2023-09-03 18:37] VITALS: BP 158/98; PULSE 103; TEMP 36.6; O2SAT 95; BMI 28.2
--- OUTSIDE RECORDS SUMMARY | 2023-09-03 18:37 | XMS_ITS | CCD ---
Author Organization [facility] CliniSyri Care Team Providers Care Behavioral Health Associate Name Role Phone LEYDI ACEVES Primary Care Unavailable Leydi Aceves Primary Care Provider MD Leydi Aceves Primary Care Provider [phone] MD Juvenal Smith Emergency Provider MD Adam Young Admit Provider [phone] MD Adam Young Attending Provider Leydi Aceves Primary Care Provider Leydi Aceves Primary Care Provider KETAN, DR HOLLEY Primary Care Unavailable LIBERTAD ., ZHAO Admitting Unavailable LIBERTAD ., ZHAO Consulting Unavailable ZHAO DAWSON Attending Unavailable LIBERTAD ., ZHAO Admitting Unavailable LIBERTAD Lay, ZHAO Attending Unavailable SOCO Lay, MR COLE Consulting Unavailable KETAN, DR HOLLEY Primary Care Unavailable MATIAS MCINTYRE Attending Unavailable ISIS DUFF Consulting UnavailMATIAS Ken Admitting Unavailable KETAN, DR HOLLEY Primary Care Unavailable LIBERTAD ., ZHAO Admitting Unavailable ZHAO DAWSON Attending Unavailable KELLY ACOSTA Consulting Unavailable KETAN, DR HOLLEY Primary Care Unavailable LIBERTAD ., ZHAO Admitting Unavailable RUFINA MARIN Consulting Unavailable ZHAO DAWSON Attending Unavailable KETAN, DR HOLLEY Primary Care [...] ., DR DUGGAN Admitting Unavailable [facility] Primary [facility] Provider KAYCE COFFMAN Referring Unavailable LEYDI ACEVES Primary Care Unavailable Ladi Huber Attending Unavailable [place] BendLeydi junior MD Primary Care Provider Leydi Aceves MD Unavailable MIRI REES Attending Unavailable LEYDI ACEVES Attending Unavailable LEYDI ACEVES Attending Unavailable LEYDI ACEVES Attending Unavailable Ketan MD [facility] Provider DELMY BOYLE [facility] Un[facility] Un[facility] MANDELMY HUNTER Referring Unavailable MANJEANNETTENDELMY Attending Unavailable [facility] Unavailable MANDALE DELMY D Referring Unavailable [facility] Unavailable MANDELMY HUNTER Attending Unavailable MANZON, DELMY D Referring Unavailable [facility] Unavailable MANDELMY HUNTER Attending Unavailable [facility] Unavailable Nicola Leyva Attending Unavailab le Leydi Aceves Primary Care Unavailable Adam Young Admitting Unavailable Nicola Leyva Attending Unavailab le Leydi Aceves Primary Care Unavailable Nicola Leyva Admitting Unavailab MD Leydi Thapa Primary Care Provider MD Nicola Leyva Attending Provider [phone] Medications Current Medications Medication Drug Class(es) Dates Sig (Normalized) Sig (Original) allopurinol 100 mg oral tablet (20 sources) Xanthine Oxidase Inhibitor Start: 06-24-2023 allopurinol (ZYLOPRIM) 100 mg tablet Indications: Idiopathic [...] daily 180 tablet 1 06/24/2023 Active Start: 05-09-2023 Allopurinol Ac tive 300 MG PO Daily May 09, 2023 1:00am take with Allopurinol 100mg tablet to =400mg Start: 03-08-2023 End: 06-24-2023 Allopurinol Active 100 MG PO Daily May 09, 2023 1:00am take with Allopurinol 300mg tablet to =400mg Start: 03-08-2023 End: 06-24-2023 allopurinol (ZYLOPRIM) 300 m g tablet 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 Using 300 mg and 100 mg tabs, take 700 mg daily (in divided doses) 180 tablet 1 03/08/2023 06/24/2023 Discontinued Start: 01-01-2022 take 2 tablets by mo uth in the morning allopurinol (Zyloprim) 300 MG tablet Take 600 mg by mouth in the morning. 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 Using 300 mg and 100 mg tabs, take 350 mg qam and 300 mg qpm (total daily dose of 650 mg) 180 tablet 1 01/01/2022 Active Start: 05-30-2021 End: 08-05-2021 allopurinol (ZYLOPRIM) 100 [...] WITH 300MG ALPRAZolam 0.5 mg oral tablet (17 sources) Benzodiazepine Start: take 0.5 mg by mouth three times daily Alprazolam Active 0.5 MG PO Three times daily May 09, 2023 1:00am Start: 03-16-2023 take 1 tablet by barbara th three times daily as needed for anxiety ALPRAZolam (Xanax) 0.5 MG tablet Indications: Anxiety Take 1 tablet (0.5 mg) by mouth 3 (three) times a day as needed for anxiety 90 tablet 0 03/16/2023 Active Start: 12-07-2021 End: 05-09-2023 take 0.5 mg by mouth twice daily Alprazolam Discontinued 0.5 MG PO Twice daily December 07, 2021 12:00am May 09, 2023 1:47am Start: 08-28-2019 take 1 tablet by barbara th twice daily ALPRAZolam (XANAX) 0.25 mg tablet Take 0.25 mg by mouth twice daily. 0 08/28/2019 Active Comment on above: Take 0.25 mg by mout h twice daily. amLODIPine 10 mg oral tablet (17 sources) Dihydropyridine Calcium Channel Nilton Start: 2 End: take 10 mg by mouth once daily Amlodipine Active 10 MG PO Daily May 09, 2023 1:00am Start: 12-25-2020 take 1 tablet by barbara th twice daily amLODIPine (NORVASC) 5 mg tablet Take 1 tablet by mouth twice daily. 180 tablet 3 12/25/2020 Active Comment on above: Take 1 tablet by barbara th twice daily. amoxicillin 875 mg / clavulanate 125 mg oral tablet (1 source) Penicillin-class Antibacterial Start: 08-22-19 take 1 tablet by mouth twice daily Amoxicillin-Pot Clavulanate Active 1 TAB PO Twice daily 18 12August 22, 2023 12:00am brexpiprazole 2 mg oral tablet (1 source) Atypical Antipsychotic Start: 08-22-19 take 1 tablet by mouth once daily Brexpiprazole (Rexulti) 2 mg tablet Active 2 MG PO Daily August 22, 2023 12:00am 12 hr buPROPion hydrochloride 100 mg extended release oral tablet (12 sources) Aminoketone Start: 10-08-19 take 1 tablet by mouth twice daily buPROPion SR (WELLBUTRIN SR) 100 mg 12 hr tablet Take 100 mg by mouth twice daily. 0 10/08/2019 Active Comment on above: Take 100 mg by mouth twice daily. carvedilol 6.25 mg oral tablet (4 sources) alpha-Adrenergic Nilton, beta-Adrenergic [place] Start: 12-08-19 End: 05-09-19 take 1 tablet by mouth twice daily at mealtime carvedilol (Coreg) 6.25 MG tablet Indications: Essential (primary) hypertension (CMS/HCC) TAKE 1 TABLET BY MOUTH TWICE A DAY WITH FOOD 180 tablet 3 09/21/2022 Active celecoxib 100 mg oral capsule (4 sources) Nonsteroidal Anti-inflammatory Drug Start: 12-08-19 End: 05-09-19 take 1 capsule by mouth in the morning celecoxib (CeleBREX) 100 MG capsule Take 100 mg by mouth in the morning and 100 mg before bedtime. 0 03/17/2022 Active cloNIDine hydrochloride 0.1 mg oral tablet (5 sources) Central alpha-2 Adrenergic Agonist Start: 05-09-19 take 0.1 mg by mouth twice daily Clonidine Hcl Active 0.1 MG PO Twice daily May 09, 2023 1:00am Start: 12-07-2021 End: 05-09-2023 take 1 tablet by mouth twice daily cloNIDine (Catapres) 0.1 MG tablet Indications: Essential hypertension (CMS/HCC) TAKE 1 TABLET BY MOUTH TWICE A DAY 180 tablet 3 08/13/2022 Active colchicine 0.6 mg oral tablet (18 sources) Start: 05-30-2021 End: 05-09-2023 take 0.6 mg by mouth every other day Colchicine Active 0.6 MG PO every other day May 09, 2023 1:00am Comment on above: Take 1 tablet by barbara th every other day. TAKE 1 TABLET BY BARBARA TH EVERY OTHER DAY doxycycline hyclate 100 mg oral tablet (2 sources) Tetracycline-cla ss Drug Start: 02-16-2023 take 1 tablet by mouth in the morning doxycycline (Vibra-Tabs) 100 MG tablet Take 100 mg by mouth in the morning and 100 mg before bedtime. 0 02/16/2023 Active ondansetron 4 mg disintegrating oral tablet (2 sources) Serotonin-3 Receptor Antagonist Start: 01-11-2023 take 1 tablet by mouth every eight hours as needed ondansetron ODT (Zofran-ODT) 4 MG disintegrating tablet Take 4 mg by mouth every 8 (eight) hours if needed. 0 01/11/2023 Active predniSONE 5 mg oral tablet (8 sources) Start: 02-24-2023 take 5 tablets by mouth once daily predniSONE (Deltasone) 10 MG tablet TAKE 5 TABS BY MOUTH DAILY X5DAYS,4 TABS X5DAYS,3 TABS X5DAYS,2 TABS X5DAYS,1 TAB X5DAYS DIRECTED 0 02/24/2023 Active Start: 11-13-2022 End: 07-07-2023 predniSONE (DELTASONE) 5 mg tablet Take 6 tab in AM on day 1 then reduce dose by 1 tablet every day until off 21 tablet 0 07/07/2023 Active Comment on above: Take 6 tab in AM on day 1 then reduce dose by 1 tablet every day until off QUEtiapine 100 mg oral tablet (8 sources) Atypical Antipsychotic Start: take 100 mg by mouth at bedtime Quetiapine Active 100 MG PO Bedtime 15 May 12, 2023 12:00am Start: 05-09-2023 End: 05-12-2023 take 75 mg by mouth at bedtime Quetiapine Discontinued 75 MG PO Bedtime May 09, 2023 1:00am May 12, 2023 7:53am Start: 12-07-2021 End: 05-09-2023 take 1 tablet by mouth at bedtime QUEtiapine (SEROquel) 25 MG tablet Take 25 mg by mouth at bedtime. 0 02/16/2022 Active take 1 tablet by barbara th at bedtime QUEtiapine (SEROquel) 50 MG tablet Take 50 mg by mouth at bedtime. 0 Active traMADol hydrochloride 50 mg oral tablet (18 sources) Opioid Agonist Start: 06-24-2023 End: 07-01-2023 take 1 tablet by mouth twice daily as needed for pain traMADol (ULTRAM) 50 mg tablet Indications: Chronic tophaceous gout Take 1 tablet by mouth two times a day as needed for pain for up to 7 days. FOR SHORT TERM USE ONLY. 10 tablet 0 06/24/2023 Active Start: 05-09-2023 End: 08-22-2023 take 50 mg by mouth every six hours Tramadol Discontinued 50 MG PO Every 6 hours May 09, 2023 1:00am August 22, 2023 12:43pm Start: 03-29-2023 End: 04-28-2023 take 1 tablet by mouth every six hours for pain traMADol (Ultram) 50 MG tablet Indications: 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) Take 1 tablet (50 mg) by mouth every 6 (six) hours if needed for severe pain 120 tablet 0 03/29/2023 04/28/2023 Active Start: 12-07-2021 End: 05-09-2023 take 100 mg by mouth four times daily Tramadol Discontinued 100 MG PO Four times daily December 07, 2021 12:00am May 09, 2023 1:48am Start: 06-18-2017 End: 06-24-2023 take 1 tablet [...] for up to 4 days. for pain. traZODone hydrochloride 50 mg oral tablet (1 source) Serotonin Reuptake Inhibitor Start: take 50 mg by mouth once daily at bedtime Trazodone Active 50 MG PO Daily at bedtime August 22, 2023 12:00am Completed/Discontinued Medications Medication Drug Class(es) Dates Sig (Normalized) Sig (Original) acamprosate calcium 333 mg delayed release oral tablet (2 sources) Start: 12-10-2021 End: 05-09-2023 take 333 mg by mouth three times daily Acamprosate Discontinued 333 MG PO Three times daily 45 December 10, 2021 12:00am May 09, 2023 1:48am acetaminophen 325 mg / oxyCODONE hydrochloride 5 mg oral tablet (5 sources) Opioid Agonist Start: 05-09-2023 End: 08-22-2023 take 1 tablet by mouth every eight hours Oxycodone-Acetamino phen Discontinued 1 TAB PO Every 8 hours May 09, 2023 1:00am August 22, 2023 12:43pm Start: 03-16-2023 End: 04-15-2023 take 1 tablet by mouth every eight hours for pain oxyCODONE-acetaminophen (Percocet) 5-325 MG tablet Indications: 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) Take 1 tablet by mouth every 8 (eight) hours if needed for severe pain 90 tablet 0 03/16/2023 04/15/2023 Active Start: 12-07-2021 End: 05-09-2023 take 1 tablet by mouth twice daily Oxycodone-Acetaminophen Discontinued 1 T AB PO Twice daily December 07, 2021 12:00am May 09, 2023 1:48am baclofen 10 mg oral tablet (2 sources) gamma-Aminobutyric Acid-ergic Agonist Start: 04-05-2023 End: 08-22-2023 take 10 mg by mouth three times daily Baclofen Discontinued 10 MG PO Three times daily May 09, 2023 1:00am August 22, 2023 12:35pm busPIRone hydrochloride 5 mg oral tablet (1 source) Start: 05-12-2023 End: 08-22-2023 take 5 mg by mouth twice daily Buspirone Discontinued 5 MG PO Twice daily 30 May 12, 2023 12:00am August 22, 2023 12:42pm cholecalciferol 0.05 mg oral tablet (7 sources) Vitamin D Start: 12-23-2020 take 1 tablet by mouth once daily cholecalciferol (VITAMIN D3) 50 mcg (2,000 unit) tablet Take 1 tablet by mouth once daily. 90 tablet 0 12/23/2020 Active Comment on above: Take 1 tablet by barbara th once daily. escitalopram 20 mg oral tablet (5 sources) Serotonin Reuptake Inhibitor Start: 05-09-2023 End: 08-22-2023 take 20 mg by mouth once daily Escitalopram Oxalate Discontinued 20 MG PO Daily May 09, 2023 1:00am August 22, 2023 12:42pm Start: 06-10-2022 take 1 tablet by barbara th in the morning escitalopram (Lexapro) 20 MG tablet Take 20 mg by mouth in the morning. 0 06/10/2022 Active Start: 12-10-2021 End: 05-09-2023 take 5 mg by mouth once daily in the morning Escitalopram Oxalate Discontinued 5 MG PO Every morning December 10, 2021 12:00am May 09, 2023 1:48am gabapentin 300 mg oral capsule (3 sources) Anti-epileptic Agent Start: 08-22-2023 End: 08-22-2023 take 300 mg by mouth three times daily Gabapentin Discontinued 300 MG PO Three times daily August 22, 2023 12:00am August 22, 2023 12:42pm Start: 04-05-2023 take 1 capsule by mo uth at [...] BEFORE BEDTIME 100 capsule 3 03/08/2023 Active Naloxone (1 source) Opioid Antagonist Start: 08-22-2023 End: 08-22-2023 Naloxone Discontinued INTRANASAL August 22, 2023 12:00am August 22, 2023 12:42pm tiZANidine 4 mg oral tablet (2 sources) Central alpha-2 Adrenergic Agonist Start: 12-07-2021 End: 05-09-2023 take 4 mg by mouth three times daily Tizanidine Discontinued 4 MG PO Three times daily December 07, 2021 12:00am May 09, 2023 1:48am Problems Active Problems Problem Classification Problem Date [...] (tophi)] Onset: 04-26-2017 Chronic Headache; including migraine (3 sources) Migraine; Translations: [Migraine without aura, not intractable, without status migrainosus] 09-27-2021 Chronic Immunity disorders (2 sources) Immunodeficiency disorder; Translations: [Immunodeficiency, unspecified] Onset: 07-29-2022 07-29-2022 Chronic Mood disorders (5 sources) Recurrent major depressive episodes, moderate ; Translations: [Major depressive disorder, recurrent, moderate] Onset: 12-15-2021 12-08-2021 Chronic Nutritional deficiencies (2 sources) Vitamin D deficiency; Translations: [Vitamin D deficiency, unspecified] Onset: 07-29-2022 07-29-2022 Chronic Osteoarthritis (2 sources) Localized, primary osteoarthritis of the shoulder region; Translations: [Primary osteoarthritis, unspecified shoulder] Onset: 07-29-2022 07-29-2022 Chronic Other aftercare (2 sources) Patient encounter status; Translations: [Other correction (current) drug therapy] Episodic Other connective tissue disease (4 sources) Other specified soft tissue disorders; Translations: [OTHER SPEC SOFT TISSUE DISORDERS] Onset: 06-30-2022 Episodic Other connective tissue disease (3 sources) Pain in right arm; Translations: [PAIN IN RIGHT ARM] Onset: 05-31-2022 Episodic Other nervous system disorders (15 sources) Chronic pain; Translations: [Other chronic pain] Onset: 04-26-2017 04-26-2017 Chronic Other non-traumatic joint disorders (1 source) Polyarthritis, unspecified; Translations: [POLYARTHRITIS UNSPECIFIED] Onset: 04-02-2022 Chronic Other non-traumatic joint disorders (2 sources) Polyarthropathy; Translations: [Polyarthritis, unspecified] Onset: 2015 12-16-2022 Chronic Other non-traumatic joint disorders (3 sources) Pain in left elbow; Translations: [PAIN IN LEFT ELBOW] Onset: 06-20-2022 Episodic Other upper respiratory infections (2 sources) Acute pansinusitis; Translations: [Acute pansinusitis, unspecified] 08-22-2023 Episodic Rheumatoid arthritis and related disease (20 sources) Rheumatoid arthritis of multiple joints; Translations: [...] region] Onset: 12-16-2022 12-16-2022 Chronic Substance-related disorders (18 sources) Nicotine dependence; Translations: [Nicotine dependence, unspecified, [...] 01-31-2022 Episodic Other aftercare (2 sources) Other correction (current) drug therapy; Translations: [OTH M[facility] CURRENT DRUG THERAPY] Onset: 06-30-2022 Episodic Other [...] Test Name Value Interpretation Reference Range Facility [facility] 06-24-2023 CNOV Office Visit (RHEMELAV ) -- NICK WRAY ([id number]) 1990 M Date Time Provider Department 06/24/23 3:00 PM DELMY BOYLE During your visit today, we [...] arthritic flares once every [address] Jaime in [place] who did diagnostic knee aspiration which according to patient was positive for uric acid crystals. Treated with steroids and continued allopurinol. He has not seen Dr. Jaime since 2014. In 2014, he was hospitalized in [place] for acute polyarthritis. Saw fruit pitter while in hospital who told him that he possibly had RA. Discharged on steroids. His PCP switched him from allopurinol to Uloric Jan 2017. He also takes colchicine prn. No reduction in frequency or severity of his joint flares with Uloric. In 2016, he has been hospitalized 7-8 times for acute joint flares. Each time he is treated with steroids. Hospitalized at [facility] Apr 2017 for acute flare of [...] 19: had left shoulder surgery by Dr. cT Coffey at [facility]. No post op complications. Was in [...] joints. Maribel (more content not included)... Normal [facility] CRP SerPl-mCncon 06-21-2023 CRP [Mass/Vol] mg/L Normal <0.9 [facility] Comment on above: Order Comment: Speci men Type: BLOOD SPECIMEN Ordering Facility: [facility] Address: [place] [address] Performed By: #### C RET1, 1919-09, 1741-07, 1750-08 #### [facility] CLIA [id number] [address] [place] [address] ESR Westergren method (Bld) [Velocity]on 06-21-2023 ESR (Bld) [Velocity] 2 mm/h Normal 0-15 [facility] Comment on above: Order Comment: Speci men Type: BLOOD SPECIMEN Ordering Facility: [facility] Address: [address] [place] [id number] Performed By: #### C NEEMA1, 1919-09, 1741-07, 1750-08 #### [facility] CLIA [id number] [address] [place] [address]53 Urate SerPl-mCncon Urate [Mass/Vol] 5.1 mg/dL Normal 4.0-8.1 [facility] Comment on above: Order Comment: Speci men Type: BLOOD SPECIMEN Ordering Facility: [facility] Address: [address] [place] [id number] Performed By: #### C NEEMA1, 1919-09, 1741-07, 1750-08 #### [facility] CLIA [id number] [address] [place], [place] [id number] Lipid Panelon 05-09-2023 Cholesterol [Mass/Vol] 155 mg/dL Normal 140-200 [facility] Comment on above: Result Comment: Chol less than 200 mg/dl low risk Chol 201-239 mg/dl borderline risk Chol 240 mg/dl and greater high risk Performed By: #### L IPID, [id number], TSH3 wRFLX #### [facility] [address] [place] [address] [facility] Cholesterol in HDL [Mass/Vol] 46 mg/dL Normal 23-92 [facility] Comment on above: Result Comment: HDL CHOL ATP-III CLASSIFICATION Cardiovascular Risk HDL > or equal to 60 mg/dL LOW HDL < 40 mg/dL HIGH Performed By: #### L IPID, [id number], TSH3 wRFLX #### [address] Cholesterol.total/Ch olesterol in HDL [Mass ratio] 3.4 {ratio} Normal <5.0 [facility] Comment on above: Performed By: #### L IPID, [id number], TSH3 wRFLX #### [address] LDL Cholesterol,Calculat ed 90 mg/dL Normal 0-100 [facility] Comment on above: Result Comment: LDL ATP III CLASSIFICATION LDL less than 100 mg/dL Optimal LDL 100-129 mg/dL Near or above optimal LDL 130-159 mg/dL Borderline high LDL 160-189 mg/dL High LDL greater than 189 mg/dL Very high Performed By: #### L IPID, [id number], TSH3 wRFLX #### [address] Triglyceride w/Reflex 94 mg/dL Normal 0-149 [facility] Comment on above: Result Comment: TRIG ATP III CLASSIFICATION TRIG less than 150 mg/dL Normal TRIG 150-199 mg/dL Borderline high TRIG 200-500 mg/dL High TRIG greater than 500 mg/dL Very high Standard traceable to the Center for Disease Conrtrol and Prevention (CDC) test method. Performed By: #### L IPID, [id number], TSH3 wRFLX #### [address] VLDL CHOLESTEROL 18 mg/dL Normal [facility] Comment on above: Performed By: #### L IPID, [id number], TSH3 wRFLX #### [address] Thyroid Stim Hormone w/Rflxo n 05-09-2023 Thyroid Stim Hormone w/Rflx 0.91 u[iU]/mL Normal 0.45-5.33 [facility] Comment on above: Performed By: #### L IPID, [id number], TSH3 wRFLX #### [facility] [address] [place] [address] [facility] Vitamin D 25 Hydroxy Totalon 05-09-2023 Vitamin D 25 Hydroxy Total 26.8 ng/mL Low 30-100 [facility] Comment on above: Result Comment: DEVEN MIN D STATUS 25(OH)VITAMIN D RANGE (ng/mL) Deficient <20 Insufficient 20 to <30 Sufficient 30 to 100 Reference: Harpal MF,[place], Dayron WAN, et al. Evaluation,treatment, and prevention of vitamin D deficiency; an Endocrine Society clinical practice guideline. JCEM. 2010; 96(7):1911-30. PERFORMED BY: [address] [place] [id number] PATHOLOGIST DIRECTOR INPATIENT HEADACHE PROGRAM MARIO PEDERSON M.D. Performed By: #### L IPID, [id number], TSH3 wRFLX #### [place] [id number] [facility] CNOVon 03-08-2023 CNOV Office Visit (ANA ) -- KAMALAOSEILamar Brink ([id number]) 1990 M Date Time Provider Department 03/08/23 [...] arthritic flares once every [address]itter [address] Jaime in [place] who did diagnostic knee aspiration which according to patient was positive for uric acid crystals. Treated with steroids and continued allopurinol. He has not seen Dr. Jaime since 2014. In 2014, he was hospitalized in [place] for acute polyarthritis. Saw fruit pitter while in hospital who told him that he possibly had RA. Discharged on steroids. His PCP switched him from allopurinol to Uloric Jan 2017. He also takes colchicine prn. No reduction in frequency or severity of his joint flares with Uloric. In 2017, he has been hospitalized 7-8 times for acute joint flares. Each time he is treated with steroids. Hospitalized at [facility] Apr 2017 for acute flare of [...] shoulder surgery by Dr. Tc Coffey at [facility]. No post op complications. Currently on [...] to gou (more content not included)... Normal [facility] ALT SerPl-cCncon 03-04-2023 ALT [Catalytic activity/Vol] 26 U/L Normal 10-54 [facility] Comment on above: Order Comment: Speci men Type: BLOOD SPECIMEN Ordering Facility: [facility] Address: [address] [place] [address] Performed By: #### Chloé BETHEA1, 1919-09, 1741-07, 1750-08 #### [facility] CLIA [id number] [address] [place] [address] AST SerPl-cCncon 03-04-2023 AST [Catalytic activity/Vol] 20 U/L Normal 14-40 [facility] Comment on above: Order Comment: Speci men Type: BLOOD SPECIMEN Ordering Facility: [facility] Address: [address] [place] [address] Performed By: #### Chloé BETHEA1, 1919-09, 1741-07, 1750-08 #### [facility] CLIA [id number] [address] [place] [address] Albumin SerPl-mCncon 024 Albumin [Mass/Vol] 4.4 g/dL Normal 3.9-4.9 [facility] Comment on above: Order Comment: Speci men Type: BLOOD SPECIMEN Ordering Facility: [facility] Address: [address] [place] [address] Performed By: #### Chloé BETHEA1, 1919-09, 1741-07, 1750-08 #### [facility] CLIA [id number] [address] [place] [address]46 CBC W Auto Differential pane l (Bld)on 03-04-2023 Basophils (Bld) [#/Vol] 10*3/uL Normal <0.11 [facility] Comment on above: Order Comment: Speci men Type: BLOOD SPECIMEN Ordering Facility: [facility] Address: [address] [place] [address] Performed By: #### Chloé BETHEA1, 1919-09, 1741-07, 1750-08 #### [facility] CLIA [id number] [address] [place] [address]185 Basophils/100 WBC (Bld) 0.2 % Normal [facility] Comment on above: Order Comment: Speci men Type: BLOOD SPECIMEN Ordering Facility: [facility] Address: [address] [place] [address] Performed By: #### Chloé BETHEA1, 1919-09, 1741-07, 1750-08 #### [facility] CLIA [id number] [address] [place] [address] 98892 Differential cell count method Nom (Bld) Auto Normal [facility] Comment on above: Order Comment: Speci men Type: BLOOD SPECIMEN Ordering Facility: [facility] Address: [address] [place] [address] Performed By: #### Chloé BETHEA1, 1919-09, 1741-07, 1750-08 #### [facility] CLIA [id number] [address] [place] [address] 72328 Eosinophils (Bld) [#/Vol] 0.08 10*3/uL Normal <0.46 [facility] Comment on above: Order Comment: Speci men Type: BLOOD SPECIMEN Ordering Facility: [facility] Address: [address] [place] [address] Performed By: #### Chloé BETHEA1, 1919-09, 1741-07, 1750-08 #### [facility] CLIA [id number] [address] [place] [address] 61103 Eosinophils/100 WBC (Bld) 0.9 % Normal [facility] Comment on above: Order Comment: Speci men Type: BLOOD SPECIMEN Ordering Facility: [facility] Address: [address] [place] [address] Performed By: #### Chloé RET1, 1919-09, 1741-07, 1750-08 #### [facility] CLIA [id number] [address] [place] [address] 49825 Erythrocyte distribution width (RBC) [Ratio] 14.3 % Normal 11.5-15.0 [facility] Comment on above: Order Comment: Speci men Type: BLOOD SPECIMEN Ordering Facility: [facility] Address: [address] [place] [address] Performed By: #### C RET1, 1919-09, 1741-07, 1750-08 #### [facility] CLIA [id number] [address] [place] [address] 70443 Hematocrit (Bld) [Volume fraction] 44.0 % Normal 39.0-51.0 [facility] Comment on above: Order Comment: Speci men Type: BLOOD SPECIMEN Ordering Facility: [facility] Address: [address] [place] [address] Performed By: #### Chloé RET1, 1919-09, 1741-07, 1750-08 #### [facility] CLIA [id number] [address] [place] [address] 43735 Hemoglobin (Bld) [Mass/Vol] 14.4 g/dL Normal 13.0-17.0 [facility] Comment on above: Order Comment: Speci men Type: BLOOD SPECIMEN Ordering Facility: [facility] Address: [address] [place] [address] Performed By: #### Chloé RET1, 1919-09, 1741-07, 1750-08 #### [facility] CLIA [id number] [address] [place] [address] 27641 Immature granulocytes (Bld) [#/Vol] 0.03 10*3/uL Normal <0.10 [facility] Comment on above: Order Comment: Speci men Type: BLOOD SPECIMEN Ordering Facility: [facility] Address: [address] [place] [address] Performed By: #### Chloé RET1, 1919-09, 1741-07, 1750-08 #### [facility] CLIA [id number] [address] [place] [address] 29878 Immature granulocytes/100 WBC (Bld) 0.3 % Normal [facility] Comment on above: Order Comment: Speci men Type: BLOOD SPECIMEN Ordering Facility: [facility] Address: [address] [place] [address] Performed By: #### Chloé RET1, 1919-09, 1741-07, 1750-08 #### [facility] CLIA [id number] [address] [place] [address] 49752 Lymphocytes (Bld) [#/Vol] 2.45 10*3/uL Normal 1.00-4.00 [facility] Comment on above: Order Comment: Speci men Type: BLOOD SPECIMEN Ordering Facility: [facility] Address: [address] [place] [address] Performed By: #### Chloé RET1, 1919-09, 1741-07, 1750-08 #### [facility] CLIA [id number] [address] [place] [address] 45158 Lymphocytes/100 WBC (Bld) 28.1 % Normal [facility] Comment on above: Order Comment: Speci men Type: BLOOD SPECIMEN Ordering Facility: [facility] Address: [address] [place] [address] Performed By: #### Chloé RET1, 1919-09, 1741-07, 1750-08 #### [facility] CLIA [id number] [address] [place] [address] 03392 MCH (RBC) [Entitic mass] 28.9 pg Normal 26.0-34.0 [facility] Comment on above: Order Comment: Speci men Type: BLOOD SPECIMEN Ordering Facility: [facility] Address: [address] [place] [address] Performed By: #### C RET1, 1919-09, 1741-07, 1750-08 #### [facility] CLIA [id number] [address] [place] [address] 25393 MCHC (RBC) [Mass/Vol] 32.7 g/dL Normal 30.5-36.0 [facility] Comment on above: Order Comment: Speci men Type: BLOOD SPECIMEN Ordering Facility: [facility] Address: [address] [place] [address] Performed By: #### C RET1, 1919-09, 1741-07, 1750-08 #### [facility] CLIA [id number] [address] [place] [address] 94751 MCV (RBC) [Entitic vol] 88.2 fL Normal 80.0-100.0 [facility] Comment on above: Order Comment: Speci men Type: BLOOD SPECIMEN Ordering Facility: [facility] Address: [address] [place], [place] [address] Performed By: #### Chloé RET1, 1919-09, 1741-07, 1750-08 #### [facility] CLIA [id number] [address] [place] [address] 43633 Monocytes (Bld) [#/Vol] 0.97 10*3/uL High <0.87 [facility] Comment on above: Order Comment: Speci men Type: BLOOD SPECIMEN Ordering Facility: [facility] Address: [address] [place], [place] [address] Performed By: #### Chloé BETHEA1, 1919-09, 1741-07, 1750-08 #### [facility] CLIA [id number] [address] [place] [address] 78027 Monocytes/100 WBC (Bld) 11.1 % Normal [facility] Comment on above: Order Comment: Speci men Type: BLOOD SPECIMEN Ordering Facility: [facility] Address: [address] [place] [address] Performed By: #### Chloé RET1, 1919-09, 1741-07, 1750-08 #### [facility] CLIA [id number] [address] [place] [address] 36768 Neutrophils (Bld) [#/Vol] 5.17 10*3/uL Normal 1.45-7.50 [facility] Comment on above: Order Comment: Speci men Type: BLOOD SPECIMEN Ordering Facility: [facility] Address: [address] [place] [address] Performed By: #### Chloé RET1, 1919-09, 1741-07, 1750-08 #### [facility] CLIA [id number] [address] [place] [address] 52262 Neutrophils/100 WBC (Bld) 59.4 % Normal [facility] Comment on above: Order Comment: Speci men Type: BLOOD SPECIMEN Ordering Facility: [facility] Address: [address] [place] [address] Performed By: #### Chloé BETHEA1, 1919-09, 1741-07, 1750-08 #### [facility] CLIA [id number] [address] [place] [address] 30395 Nucleated RBC (Bld) [#/Vol] 10*3/uL Normal <0.01 [facility] Comment on above: Order Comment: Speci men Type: BLOOD SPECIMEN Ordering Facility: [facility] Address: [address] [place] [address] Performed By: #### Chloé BETHEA1, 1919-09, 1741-07, 1750-08 #### [facility] CLIA [id number] [address] [place] [address] 95132 Nucleated RBC/100 WBC (Bld) [Ratio] 0.0 /100 WBC Normal [facility] Comment on above: Order Comment: Speci men Type: BLOOD SPECIMEN Ordering Facility: [facility] Address: [address] [place] [address] Performed By: #### Chloé BETHEA1, 1919-09, 1741-07, 1750-08 #### [facility] CLIA [id number] [address] [place] [address] 99433 Platelet mean volume (Bld) [Entitic vol] 9.7 fL Normal 9.0-12.7 [facility] Comment on above: Order Comment: Speci men Type: BLOOD SPECIMEN Ordering Facility: [facility] Address: [address] [place] [address] Performed By: #### Chloé RET1, 1919-09, 1741-07, 1750-08 #### [facility] CLIA [id number] [address] [place] [address] 42577 Platelets (Bld) [#/Vol] 442 10*3/uL High 150-400 [facility] Comment on above: Order Comment: Speci men Type: BLOOD SPECIMEN Ordering Facility: [facility] Address: [address] [place] [place] [id number] Performed By: #### C RET1, 1919-09, 6, 1750-08 #### [facility] CLIA [id number] [address] [place] [address] 25622 RBC (Bld) [#/Vol] 4.99 10*6/uL Normal 4.20-6.00 [facility] Comment on above: Order Comment: Speci men Type: BLOOD SPECIMEN Ordering Facility: [facility] Address: [address] [place] [address] Performed By: #### C RET1, 1919-09, 1741-07, 1750-08 #### [facility] CLIA [id number] [address] [place] [address] 09939 WBC (Bld) [#/Vol] 8.72 10*3/uL Normal 3.70-11.00 [facility] Comment on above: Order Comment: Speci men Type: BLOOD SPECIMEN Ordering Facility: [facility] Address: [address] [place] [address] Performed By: #### Chloé RET1, 1919-09, 1741-07, 1750-08 #### [facility] CLIA [id number] [address] [place] [address] 13283 CREATININE BLDon 03-04-2023 Creatinine [Mass/Vol] 1.21 mg/dL Normal 0.73-1.22 [facility] Comment on above: Order Comment: Speci men Type: BLOOD SPECIMEN Ordering Facility: [facility] Address: [address] [place] [address] Performed By: #### C RET1, 1919-09, 1741-07, 1750-08 #### [facility] CLIA [id number] [address] [place] [address] 50399 Creatinine and Glomerular filtration rate.predicted panel (S/P/Bld) 81 mL/min/1.73m??? Normal >=60 [facility] Comment on above: Order Comment: Speci men Type: BLOOD SPECIMEN Ordering Facility: [facility] Address: [address] [id number] Result Comment: Jyoti mated Glomerular Filtration Rate [...] #### C RET1, 1919-09, 1741-07, 1750-08 #### [facility] CLIA [id number] [address] [place] [address] 78105 CRP SerPl-mCncon 03-04-2023 CRP [Mass/Vol] 4.2 mg/dL High <0.9 [facility] Comment on above: Order Comment: Speci men Type: BLOOD SPECIMEN Ordering Facility: [facility] Address: [address] [place] [address] Performed By: #### 1 988-5 #### [facility] CLIA [id number] [address] [place] [address] [place] ESR Westergren method (Bld) [Velocity]on 03-04-2023 ESR (Bld) [Velocity] 29 mm/h High 0-15 [facility] Comment on above: Order Comment: Speci men Type: BLOOD SPECIMEN Ordering Facility: [facility] Address: [address] [place] [address] Performed By: #### C RET1, 1919-09, 1741-07, 1750-08 #### [facility] CLIA [id number] [address] [place] [address] 51850 Urate SerPl-mCncon Urate [Mass/Vol] 14.6 mg/dL High 4.0-8.1 [facility] Comment on above: Order Comment: Speci men Type: BLOOD SPECIMEN Ordering Facility: [facility] Address: [address] [place] [address] Performed By: #### 3 084-1 #### [facility] CLIA [id number] [address] [place], [place] [address] Consent for Treatmenton 01-30 Consent for Treatment [id number] Normal [facility] Discharge Instructionson Discharge Instructions [id number] Normal [facility] ED Clinical Summaryon 2022 ED Clinical Summary (Inserted Image. Jodi ble to display) [address] [address] ED Clinical Summary Person Information Name: NICK WRAY Jonatan/[facility] Age: 32 Years : 1990 Sex: Male Language: Divehi PCP: LEYDI ACEVES MD Marital Status: MRN: [id number] Visit Id: Visit Reason: Post surgical problem; [...] 02/24/2023 15:31:03 02/24/2023 15:31:03 02/24/2023 15:31:03 ADDRESS: [address] [place] [id number] PHYS DOC NOTES: MEDICAL INFORMATION: Prescriptions Given: New Medications [id number], [address] [place], [place] [id number], [phone] predniSONE (predniSONE 10 mg Tab) 1 Dose [...] pain. PATIENT EDUCATION INFORMATION: Instructions: Knee Effusion, Qjci-es-Beja Follow up: With: Address: When: LEYDI ACEVES [address] [place] [address] [facility] () In 3 days 02/27/2023 Comments: Take the steroids once daily as prescribed to completed the course. Please follow-up with your primary care doctor in the next 2 to 3 days for further evaluation management. Please return to ED for any worsening symptoms. Follow-up with your orthopedic doctor for further evaluation management. DIAGNOSIS: Swelling of joint, knee, right Normal [facility] ED Note-Physicianon 02-25-20 ED Note-Physician Basic Information Time Seen: Ladi Huber DO 02/24/2023 14:07 Chief Complaint Pt had knee surgery for scope to clean out gout in [place] by a doctor out of [place]. Pt. states has had fluiding building up in R knee since Wednesday. Called ortho doc who did surgery and told to go to ER to get fluid drained. Attempted to go to [place] History of Present Illness Patient is a 30-year-old male with past medical history of rheumatoid arthritis, gout presenting to the ED for evaluation of swelling to the right knee. Patient states he had a scope for gout in [place] on Wednesday, since then has been having [...] Problems Differential Diagnosis: [] [facility] Data External documents reviewed: [] My [...] days., # 75 tab(s), Refills(s) 0, Pharmacy: [id number], 187, cm, 02/24/23 12:43:00 EST, Height/Length Dosing... Disposition Plan Discharge Prescription List Prescriptions predniSONE 10 mg Tab, 1 -, Oral, As Directed Follow-up With When Contact Information HENNYCHAGO ACEVES In 3 days 02/27/[address] [place] [address] Business (1) Additional Instructions: Take the steroids once daily as prescribed to completed the course. Please follow-up with your primary care doctor in the next 2 to 3 days for further evaluation management. Please return to ED for any worsening symptoms. Follow-up with your orthopedic doctor for further evaluation management. Patient Education Knee Effusion, Wgvy-od-Vfwl Problem List/Past Medical History Ongoing No qualifying [...] 1 tab(s) (more content not included)... Normal [facility] Comment on above: Result Comment: Elec tronically [...] by your doctor. General instructions ? Take bjaa-bfy-isohvwk and prescription medicines only as told by [...] bend and move your knee. ? Take czwe-aad-hapihcd and prescription medicines only as told by [...] Reviewed: 10/16/2020 Elsevier Patient Education ? 2022 [employer] Normal [facility] ED Patient Summaryon 023 ED Patient Summary (Inserted Image. Jodi ble to display) [place] [id number] Patient Discharge Instructions Person Information Name: NICK WRAY Age: 32 Years [facility]: [id number] Arrival Date: 02/24/2023 12:18:34 Discharge Diagnosis: Swelling of joint, knee, right Primary Care Physician: LEYDI ACEVES MD Provider Information Primary Provider: Ladi Huber DO Advanced Stretcher Leveler Operator Helper:None The exam and treatment you received in the Emergency Department were for an urgent problem and are not intended as complete care. It is important that you follow up with a doctor, nurse practitioner, or physician?s commercial real estate assistant for ongoing care. If your symptoms [...] Follow-up Instructions: With: Address: When: LEYDI ACEVES [address] [place], [place] [id number] Business (1) In 3 days 02/27/2023 Comments: [...] participating provider. Patient Education Materials: Knee Effusion, Buej-mn-Xrui A MESSAGE TO ALL PATIENTS REGARDING OPIOIDS PRESCRIPTION OPIOIDS: WHAT YOU NEED TO KNOW Prescription opioids can be used to help relieve qjwqzvzc-rs-rxspjj pain and are often prescribed following a [...] Administration (www.fd (more content not included)... Normal [facility] Crystals, Fluidson 3 Crystals,Fluid Positive Abnormal NEG [facility] Comment on above: Result Comment: FEW INTRACELLULAR AND MANY EXTRACELLULAR URIC ACID CRYSTALS Performed By: #### F LCRYS #### [facility] [address] [place] [address] Scrap Worker: Krish Abdi MD [facility] [address] [place] [address] Scrap Worker: Drew Godoy MD #### FLDCT #### [facility] [address] [place] [address] Scrap Worker: Drew Godoy MD Pathologist Review: ELECTRONICALLY KENAmbrosio GODOY MD [facility] Comment on above: Performed By: #### F LCRYS #### [facility] [address] [place] [address] Scrap Worker: Krish Abdi MD [facility] [address] [place] [address] Scrap Worker: Drew Godoy MD #### FLDCT #### [facility] [address] [place] [address] Scrap Worker: Drew Godoy MD Fluid Cell Count and Diffon 02-19-2023 Basophils/100 WBC (Bld) 0 % Normal 0 [facility] Comment on above: Performed By: #### F LCRYS #### [facility] [address] [place] [address] Scrap Worker: Krish Abdi MD [facility] [address] [place] [address] Scrap Worker: Drew Godoy MD #### FLDCT #### [facility] [address] [place] [address] Scrap Worker: Drew Godoy MD Eosinophils/100 WBC (Bld) 0 % Normal 0 [facility] Comment on above: Performed By: #### F LCRYS #### [facility] [address] [place] [address] Scrap Worker: Krish Abdi MD [facility] [address] [place] [address] Scrap Worker: Drew Godoy MD #### FLDCT #### [facility] [address] [place] [address] Scrap Worker: Drew Godoy MD Lymphocytes/100 WBC (Bld) 10 % [facility] Comment on above: Performed By: #### F LCRYS #### [facility] [address] [place] [address] Scrap Worker: Krish Abdi MD [facility] [address] [place] [address] Scrap Worker: Drew Godoy MD #### FLDCT #### [facility] [address] [place] [address] Scrap Worker: Drew Godoy MD Cole/Macrophage 0 % [facility] Comment on above: Performed By: #### F LCRYS #### [facility] [address] [place] [address] Scrap Worker: Krish Abdi MD [facility] [address] [place] [address] Scrap Worker: Drew Godoy MD #### FLDCT #### [facility] [address] [place] [address] Scrap Worker: Drew Godoy MD Neutrophils/100 WBC (Bld) 90 % [facility] Comment on above: Performed By: #### F LCRYS #### [facility] [address] [place] [address] Scrap Worker: Krish Abdi MD [facility] [address] [place] [address] Scrap Worker: Drew Godoy MD #### FLDCT #### [facility] [address] [place] [address] Scrap Worker: Drew Godoy MD RBC (Bld) [#/Vol] 0.10065 10*6/uL Normal [facility] Comment on above: Performed By: #### F LCRYS #### [facility] [address] [place] [address] Scrap Worker: Krish Abdi MD [facility] [address] [place] [address] Scrap Worker: Drew Godoy MD #### FLDCT #### [facility] [address] [place] [address] Scrap Worker: Drew Godoy MD WBC (Bld) [#/Vol] 9.96 10*3/uL [facility] Comment on above: Performed By: #### F LCRYS #### [address] [address] Scrap Worker: Krish Abdi MD [facility] [address] [place] [address] Scrap Worker: Drew Godoy MD #### FLDCT #### [facility] [address] [place] [address] Scrap Worker: Drew Godoy MD Appearance (U) Cloudy [facility] Comment on above: Performed By: #### F LCRYS #### [facility] [address] [place] [address] Scrap Worker: Krish Abdi MD [facility] [address] [place] [address] Scrap Worker: Drew Godoy MD #### FLDCT #### [facility] [address] [place] [address] Scrap Worker: Drew Godoy MD Color (U) Pale Yellow [facility] Comment on above: Performed By: #### F LCRYS #### [address] [id number] Scrap Worker: Krish Abdi MD [facility] [address] [place], [place] [address] Scrap Worker: Drew Godoy MD #### FLDCT #### [facility] [address] [place], [place] [address] Scrap Worker: Drew Godoy MD Type of Specimen .FLUID Normal [facility] Comment on above: Performed By: #### F LCRYS #### [facility] [address] [place], [place] [id number] Scrap Worker: Krish Abdi MD [facility] [address] [place], [place] [address] Scrap Worker: Drew Godoy MD #### FLDCT #### [facility] [address] [place], [place] [address] Scrap Worker: Drew Godoy MD [facility] 11-13-2022 [facility] Telephone (ORQ) -- NICK WRAY ([id number]) 1990 Date Time Provider Department 11/13/22 DELMY BOYLE [...] refill of a tapered prednisone sent to [facility] in [place], ph [phone]. Please advise. Patient has been identified by name and birthdate. Duration of symptoms: N/A Person calling: self Call patient at: at home [phone] (home) [phone] (cell) Was an appointment scheduled: No Closing statement: Results or non-symptom based questions: Thank you for calling [facility], your call will be returned within [...] Fully Assessed Reason for Visit: Patient Request [6033] Order(s):predniSONE (DELTASONE) 5 mg tabletTake 6 tab [...] Encounter Status:Closed by DELMY BOYLE on 11/13/22 [facility] CNOVon 08-14-2022 CNOV Office Visit (RHEUAV ) -- NICK WRAY ([id number]) 1990 M Date Time Provider Department 08/14/22 11:40 AM DELMY BOYLE During your visit today, we recorded the following information about you: Pulse Respiration Blood pressure Weight 94/minute 16/minute 132/93 99.8 kg Delmy Boyle MD 08/14/2022 5:15 PM Signed DX: chronic tophaceous gout, 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 Polyarthritis with several nodules mainly [...] arthritic flares once every [address] Jaime in [place] who did diagnostic knee aspiration which according to patient was positive for uric acid crystals. Treated with steroids and continued allopurinol. He has not seen Dr. Jaime since 2014. In 2014, he was hospitalized in [place] for acute polyarthritis. Saw fruit pitter while in hospital who told him that he possibly had RA. Discharged on steroids. His PCP switched him from allopurinol to Uloric Jan 2017. He also takes colchicine prn. No reduction in frequency or severity of his joint flares with Uloric. In 2017, he has been hospitalized 7-8 times for acute joint flares. Each time he is treated with steroids. Hospitalized at [facility] Apr 2017 for acute flare of [...] shoulder surgery by Dr. Tc Coffey at [facility]. No post op complications. Currently on PT - still working on shoulder ROM. 4. GENERAL HEALTH MAINTENANCE -continue follow up on his CKD with nephrology -he will follow up with his PCP for his general health issues RTC in 7 mon, sooner if needed INTERVAL HISTORY -at [facility], he was advised to increase allopurinol from 300 mg BID to 350 mg qam and 300 mg qpm but he is actually taking allopurinol 400 mg qam and 300 qpm instead. Tolerating this higher dose without issues. -He stopped drinking Nov 2021. He started drinking some since [facility]. -he had 2 flares of joint [...] 30 min (more content not included)... Normal [facility] ALT SerPl-cCncon 08-12-2022 ALT [Catalytic activity/Vol] 30 U/L Normal 10-54 [facility] Comment on above: Order Comment: Speci men Type: BLOOD SPECIMEN Ordering Facility: [facility] Address: [address] [address] Performed By: #### C RET1, 1920-8, 1742-6, 1751-7 #### [facility] CLIA [id number] [address] [place] [address] AST SerPl-cCncon 08-12-2022 AST [Catalytic activity/Vol] 28 U/L Normal 14-40 [facility] Comment on above: Order Comment: Speci men Type: BLOOD SPECIMEN Ordering Facility: [facility] Address: [address] [place] [address] Performed By: #### C RET1, 1919-09, 1741-07, 1750-08 #### [facility] CLIA [id number] [address] [place], [place] [address] Albumin SerPl-mCncon 023 Albumin [Mass/Vol] 4.5 g/dL Normal 3.9-4.9 [facility] Comment on above: Order Comment: Speci men Type: BLOOD SPECIMEN Ordering Facility: [facility] Address: [address] [place] [address] Performed By: #### C RET1, 1919-09, 1741-07, 1750-08 #### [facility] CLIA [id number] [address] [place], [place] [id number] CBC W Auto Differential pane l (Bld)on 08-12-2022 Basophils (Bld) [#/Vol] 0.00 10*3/uL Normal <0.11 [facility] Comment on above: Order Comment: Speci men Type: BLOOD SPECIMEN Ordering Facility: [facility] Address: [address] [place], [place] [address] Performed By: #### 5 7021-8 #### [facility] CLIA [id number] [address] [place], [place] [address] [facility] CLIA [id number] [address] [facility] [place] [address] [place] Basophils/100 WBC (Bld) 0.0 % Normal [facility] Comment on above: Order Comment: Speci men Type: BLOOD SPECIMEN Ordering Facility: [facility] Address: [address] [place], [place] [address] Performed By: #### 5 7021-8 #### [facility] CLIA [id number] [address] [place] [address] LAB CLIA [id number] [address] [place] [address] [place] Differential cell count method Nom (Bld) Manual Normal [facility] Comment on above: Order Comment: Speci men Type: BLOOD SPECIMEN Ordering Facility: [facility] Address: [address] [place] [address] Performed By: #### 5 7021-8 #### [facility] CLIA [id number] [address] [place] [address] LAB CLIA [id number] [address] [place] [address] [place] Eosinophils (Bld) [#/Vol] 0.08 10*3/uL Normal <0.46 [facility] Comment on above: Order Comment: Speci men Type: BLOOD SPECIMEN Ordering Facility: [facility] Address: [address] [place], [place] [address] Performed By: #### 5 7021-8 #### [facility] CLIA [id number] [address] [place] [address] LAB CLIA [id number] [address] [place] [address] [place] Eosinophils/100 WBC (Bld) 0.9 % Normal [facility] Comment on above: Order Comment: Speci men Type: BLOOD SPECIMEN Ordering Facility: [facility] Address: [address] [place] [address] Performed By: #### 5 7021-8 #### [facility] CLIA [id number] [address] [place] [address] LAB CLIA [id number] [address] [place] [address] [place] Erythrocyte distribution width (RBC) [Ratio] 14.6 % Normal 11.5-15.0 [facility] Comment on above: Order Comment: Speci men Type: BLOOD SPECIMEN Ordering Facility: [facility] Address: [address] [place] [address] Performed By: #### 5 7021-8 #### [facility] CLIA [id number] [address] [place] [address] LAB CLIA [id number] [address] [place] [address] [place] Hematocrit (Bld) [Volume fraction] 45.7 % Normal 39.0-51.0 [facility] Comment on above: Order Comment: Speci men Type: BLOOD SPECIMEN Ordering Facility: [facility] Address: [address] [place] [address] Performed By: #### 5 7021-8 #### [facility] CLIA [id number] [address] [place] [address] LAB CLIA [id number] [address] [place] [address] [place] Hemoglobin (Bld) [Mass/Vol] 15.3 g/dL Normal 13.0-17.0 [facility] Comment on above: Order Comment: Speci men Type: BLOOD SPECIMEN Ordering Facility: [facility] Address: [address] [place] [address] Performed By: #### 5 7021-8 #### [facility] CLIA [id number] [address] [place] [address] LAB CLIA [id number] [address] [place] [address] [place] Lymphocytes (Bld) [#/Vol] 3.27 10*3/uL Normal 1.00-4.00 [facility] Comment on above: Order Comment: Speci men Type: BLOOD SPECIMEN Ordering Facility: [facility] Address: [address] [place] [address] Performed By: #### 5 7021-8 #### [facility] CLIA [id number] [address] [place] [address] LAB CLIA [id number] [address] [place] [address] [place] Lymphocytes/100 WBC (Bld) 37.7 % Normal [facility] Comment on above: Order Comment: Speci men Type: BLOOD SPECIMEN Ordering Facility: [facility] Address: [address] [place] [address] Performed By: #### 5 7021-8 #### [facility] CLIA [id number] [address] [place] [address] LAB CLIA [id number] [address] [place] [address] [place] MCH (RBC) [Entitic mass] 29.4 pg Normal 26.0-34.0 [facility] Comment on above: Order Comment: Speci men Type: BLOOD SPECIMEN Ordering Facility: [facility] Address: [address] [place], [place] [address] Performed By: #### 5 7021-8 #### [facility] CLIA [id number] [address] [place] [address] LAB CLIA [id number] [address] [place] [address] [place] MCHC (RBC) [Mass/Vol] 33.5 g/dL Normal 30.5-36.0 [facility] Comment on above: Order Comment: Speci men Type: BLOOD SPECIMEN Ordering Facility: [facility] Address: [address] [place], [place] [address] Performed By: #### 5 7021-8 #### [facility] CLIA [id number] [address] [place] [address] LAB CLIA [id number] [address] [place] [address] [place] MCV (RBC) [Entitic vol] 87.9 fL Normal 80.0-100.0 [facility] Comment on above: Order Comment: Speci men Type: BLOOD SPECIMEN Ordering Facility: [facility] Address: [address] [address] Performed By: #### 5 7021-8 #### [facility] CLIA [id number] [address] [place] [address] LAB CLIA [id number] [address] [place] [address] [place] Monocytes (Bld) [#/Vol] 0.23 10*3/uL Normal <0.87 [facility] Comment on above: Order Comment: Speci men Type: BLOOD SPECIMEN Ordering Facility: [facility] Address: [address] [place] [address] Performed By: #### 5 7021-8 #### [facility] CLIA [id number] [address] [place] [address] LAB CLIA [id number] [address] [place] [address] [place] Monocytes/100 WBC (Bld) 2.6 % Normal [facility] Comment on above: Order Comment: Speci men Type: BLOOD SPECIMEN Ordering Facility: [facility] Address: [address] [place] [address] Performed By: #### 5 7021-8 #### [facility] CLIA [id number] [address] [place] [address] LAB CLIA [id number] [address] [place] [address] [place] Neutrophils (Bld) [#/Vol] 5.10 10*3/uL Normal 1.45-7.50 [facility] Comment on above: Order Comment: Speci men Type: BLOOD SPECIMEN Ordering Facility: [facility] Address: [address] [place] [address] Performed By: #### 5 7021-8 #### [facility] CLIA [id number] [address] [place] [address] LAB CLIA [id number] [address] [id number] [place] Neutrophils/100 WBC (Bld) 58.8 % Normal [facility] Comment on above: Order Comment: Speci men Type: BLOOD SPECIMEN Ordering Facility: [facility] Address: [address] [place] [address] Performed By: #### 5 7021-8 #### [facility] CLIA [id number] [address] [place] [address] LAB CLIA [id number] [address] [place] [address] [place] Nucleated RBC (Bld) [#/Vol] 10*3/uL Normal <0.01 [facility] Comment on above: Order Comment: Speci men Type: BLOOD SPECIMEN Ordering Facility: [facility] Address: [address] [place] [address] Performed By: #### 5 7021-8 #### [facility] CLIA [id number] [address] [place] [address] LAB CLIA [id number] [address] [place] [address] [place] Nucleated RBC/100 WBC (Bld) [Ratio] 0.0 /100 WBC Normal [facility] Comment on above: Order Comment: Speci men Type: BLOOD SPECIMEN Ordering Facility: [facility] Address: [address] [place] [address] Performed By: #### 5 7021-8 #### [facility] CLIA [id number] [address] [place] [address] LAB CLIA [id number] [address] [place] [address] [place] Platelet mean volume (Bld) [Entitic vol] 10.1 fL Normal 9.0-12.7 [facility] Comment on above: Order Comment: Speci men Type: BLOOD SPECIMEN Ordering Facility: [facility] Address: [address] [place], [place] [address] [id number] Performed By: #### 5 7021-8 #### [facility] CLIA [id number] [address] [place] [address] LAB CLIA [id number] [address] [place] [address] [place] Platelets (Bld) [#/Vol] 289 10*3/uL Normal 150-400 [facility] Comment on above: Order Comment: Speci men Type: BLOOD SPECIMEN Ordering Facility: [facility] Address: [address] Performed By: #### 5 7021-8 #### [facility] CLIA [id number] [address] [place] [address] LAB CLIA [id number] [address] [place] [address] [place] Platelets Estimate (Bld) [#/Vol] Adequate Normal [facility] Comment on above: Order Comment: Speci men Type: BLOOD SPECIMEN Ordering Facility: [facility] Address: [address] Performed By: #### 5 7021-8 #### [facility] CLIA [id number] [address] [place] [id number] [facility] [place] [address] [place] RBC (Bld) [#/Vol] 5.20 10*6/uL Normal 4.20-6.00 [facility] Comment on above: Order Comment: Speci men Type: BLOOD SPECIMEN Ordering Facility: [facility] Address: [address] [place] [address] Performed By: #### 5 7021-8 #### [facility] CLIA [id number] [address] [place] [address] LAB CLIA [id number] [address] [place] [address] [place] RED CELL MORPH Reviewed: unremarkable Normal [facility] Comment on above: Order Comment: Speci men Type: BLOOD SPECIMEN Ordering Facility: [facility] Address: [address] [place] [address] Performed By: #### 5 7021-8 #### [facility] CLIA [id number] [address] [place] [address] LAB CLIA [id number] [address] [place] [address] [place] WBC (Bld) [#/Vol] 8.67 10*3/uL Normal 3.70-11.00 [facility] Comment on above: Order Comment: Speci men Type: BLOOD SPECIMEN Ordering Facility: [facility] Address: [address] [place] [address] Performed By: #### 5 7021-8 #### [facility] CLIA [id number] [address] [place] [address] LAB CLIA [id number] [address] [place] [address] [place] CREATININE Don 08-12-2022 Creatinine [Mass/Vol] 1.28 mg/dL High 0.73-1.22 [facility] Comment on above: Order Comment: Speci men Type: BLOOD SPECIMEN Ordering Facility: [facility] Address: [address] [place] [address] Performed By: #### C RET1, 1920-8, 1742-6, 1751-7 #### [facility] CLIA [id number] [address] [place] [address] ESTIMATED GLOMERULAR FILTRATION RATE 76 mL/min/1.73m??? Normal >=60 [facility] Comment on above: Order Comment: Speci men Type: BLOOD SPECIMEN Ordering Facility: [facility] Address: [address] [place] [address] Result Comment: Jyoti mated Glomerular Filtration Rate [...] #### C RET1, 1919-09, 1741-07, 1750-08 #### [facility] CLIA [id number] [address] [place], [place] [address] CRP SerPl-mCncon 08-12-2022 CRP [Mass/Vol] mg/L Normal <0.9 [facility] Comment on above: Order Comment: Specmelina mariee Type: BLOOD SPECIMEN Ordering Facility: [facility] Address: [address] [place] [address] Performed By: #### C NEEMA1, 1919-09, 1741-07, 1750-08 #### [facility] CLIA [id number] [address] [place], [place] [address] ESR Westergren method (Bld) [Velocity]on 08-12-2022 ESR (Bld) [Velocity] 5 mm/h Normal 0-15 [facility] Comment on above: Order Comment: Yahaira mariee Type: BLOOD SPECIMEN Ordering Facility: [facility] Address: [address] [place], [place] [address] Performed By: #### 4 537-7 #### [facility] CLIA [id number] [address] [place] [address] [place] Urate SerPl-mCncon 3 Urate [Mass/Vol] 9.2 mg/dL High 4.0-8.1 [facility] Comment on above: Order Comment: Yahaira mariee Type: BLOOD SPECIMEN Ordering Facility: [facility] Address: [address] [place] [address] Performed By: #### C RET1, 1919-09, 1741-07, 1750-08 #### [facility] [place] [id number] [address] [place] [address] CBC AUTO DIFFon 06-28-2022 BASO # 0.0 103/ul Normal 0.0-0.1 [facility] Comment on above: Performed By: #### C BC #### [facility] [address] [address] [address] Nilay Gibbs Basophils/100 WBC (Bld) 0.2 % Normal 0.2-2.0 [facility] Comment on above: Performed By: #### C BC #### [facility] [address] [address] [address] Nilay Gibbs EO # 0.0 103/ul Normal 0.0-0.7 [facility] Comment on above: Performed By: #### C BC #### [facility] [address] [place] [address] Dr. Nilay Gibbs Eosinophils/100 WBC (Bld) 0.3 % Critically low 0.9-7.0 [facility] Comment on above: Performed By: #### C BC #### [facility] [address] [address] [address] Nilay Gibbs Erythrocyte distribution width (RBC) [Ratio] 13.9 % Normal 11.0-15.0 [facility] Comment on above: Performed By: #### C BC #### [facility] [address] [place] [address] Dr. Nilay Gibbs Hematocrit (Bld) [Volume fraction] 39.8 % Critically low 42.0-54.0 [facility] Comment on above: Performed By: #### C BC #### [facility] [address] [address] [address] Nilay Gibbs Hemoglobin (Bld) [Mass/Vol] 13.2 g/dL Critically low 14.0-18.0 [facility] Comment on above: Performed By: #### C BC #### [facility] [address] [address] [address] Nilay Gibbs IG # 0.04 10e3/ul Critically high 0.00-0.03 [facility] Comment on above: Performed By: #### C BC #### [facility] [address] [place] [address] Dr. Nilay Gibbs IG % 0.4 % Normal 0.0-0.5 [facility] Comment on above: Performed By: #### C BC #### [facility] [address] [place] [address] Dr. Nilay Gibbs LYMPH # 1.8 103/ul Normal 1.2-3.8 [facility] Comment on above: Performed By: #### C BC #### [facility] [address] [place] [address] Dr. Nilay Gibbs Lymphocytes/100 WBC (Bld) 17.5 % Critically low 20.5-60.0 [facility] Comment on above: Performed By: #### C BC #### [facility] [address] [place] [address] Dr. Nilay Gibbs MANUAL DIFF REQ NO Normal [facility] Comment on above: Performed By: #### C BC #### [facility] [address] [place] [address] Dr. Nilay Gibbs MCH (RBC) [Entitic mass] 29.3 pg Normal 25.9-34.0 [facility] Comment on above: Performed By: #### C BC #### [facility] [address] [place] [address] Dr. Nilay Gibbs MCHC (RBC) [Mass/Vol] 33.2 g/dL Normal 29.9-35.2 [facility] Comment on above: Performed By: #### C BC #### [facility] [address] [place] [address] Dr. Nilay Gibbs MCV (RBC) [Entitic vol] 88.4 fL Normal 80.0-94.0 [facility] Comment on above: Performed By: #### C BC #### [facility] [address] [place] [address] Dr. Nilay Gibbs MONO # 0.9 103/ul Critically high 0.3-0.8 [facility] Comment on above: Performed By: #### C BC #### [facility] [address] [address] [address] Nilay Gibbs Monocytes/100 WBC (Bld) 9.4 % Normal 1.7-12.0 [facility] Comment on above: Performed By: #### C BC #### [facility] [address] [place] [address] Dr. Nilay Gibbs NEUT # 7.2 103/ul Critically high 1.4-6.5 [facility] Comment on above: Performed By: #### C BC #### [facility] [address] [place] [address] Dr. Nilay Gibbs Neutrophils/100 WBC (Bld) 72.2 % Normal 43.0-75.0 [facility] Comment on above: Performed By: #### C BC #### [facility] [address] [place] [address] Dr. Nilay Gibbs Platelet mean volume (Bld) [Entitic vol] 9.6 fL Normal 9.5-13.5 [facility] Comment on above: Performed By: #### C BC #### [facility] [address] [place] [address] Dr. Nilay Gibbs PLT 356 103/ul Normal 150-450 [facility] Comment on above: Performed By: #### C BC #### [facility] [address] [place] [address] Dr. Nilay Gibbs RBC 4.50 106/ul Critically low 4.70-6.10 [facility] Comment on above: Performed By: #### C BC #### [facility] [address] [place] [address] Dr. Nilay Gibbs WBC 10.0 103/ul Normal 4.0-11.0 [facility] Comment on above: Performed By: #### C BC #### [facility] [address] [place] [address] Dr. Nilay Gibbs PROF CHEM 8 (BAS METB)on Anion gap [Moles/Vol] 12.4 mmol/L Normal [facility] Comment on above: Performed By: #### A MM #### [facility] [address] [place] [address] Dr. Nilay Gibbs Calcium [Mass/Vol] 9.4 mg/dL Normal 8.5-10.1 [facility] Comment on above: Performed By: #### A MM #### [facility] [address] [place] [address] Dr. Nilay Gibbs Chloride [Moles/Vol] 105 mmol/L Normal 98-107 [facility] Comment on above: Performed By: #### A MM #### [facility] [address] [address] [address] Nilay Gibbs CO2 [Moles/Vol] 25.6 mmol/L Normal 21.0-32.0 [facility] Comment on above: Performed By: #### A MM #### [facility] [address] [place] [address] Dr. Nilay Gibbs Creatinine [Mass/Vol] 1.18 mg/dL Normal 0.70-1.30 [facility] Comment on above: Performed By: #### A MM #### [facility] [address] [place] [address] Dr. Nilay Gibbs EGFR-AF [place] >60 Normal >=60 [facility] Comment on above: Performed By: #### A MM #### [facility] [address] [place] [address] Dr. Nilay Gibbs EGFR-NON AF [place] >60 Normal >=60 [facility] Comment on above: Performed By: #### A MM #### [facility] [address] [place] [address] Dr. Nilay Gibbs Glucose [Mass/Vol] 125 mg/dL Critically high 74-106 [facility] Comment on above: Performed By: #### A MM #### [facility] [address] [place] [address] Dr. Nilay iGbbs Potassium [Moles/Vol] 4.3 mmol/L Normal 3.5-5.1 [facility] Comment on above: Performed By: #### A MM #### [facility] [address] [place] [address] Dr. Nilay Gibbs Sodium [Moles/Vol] 139 mmol/L Normal 136-145 [facility] Comment on above: Performed By: #### A MM #### [facility] [address] [place] [address] Dr. Nilay Gibbs Urea nitrogen [Mass/Vol] 15.0 mg/dL Normal 7.0-18.0 [facility] Comment on above: Performed By: #### A MM #### [facility] [address] [place] [address] Dr. Nilay Gibbs Urea nitrogen/Creatinine [Mass ratio] 12.7 mg/mg Normal [facility] Comment on above: Performed By: #### A MM #### [facility] [address] [place] [address] Dr. Nilay Gibbs CBC AUTO DIFFon 06-20-2022 BASO # 0.0 103/ul Normal 0.0-0.1 [facility] Comment on above: Performed By: #### A MM #### [facility] [address] [place] [address] Dr. Nilay Gibbs Basophils/100 WBC (Bld) 0.2 % Normal 0.2-2.0 [facility] Comment on above: Performed By: #### A MM #### [facility] [address] [place] [address] Dr. Nilay Gibbs EO # 0.0 103/ul Normal 0.0-0.7 [facility] Comment on above: Performed By: #### A MM #### [facility] [address] [place] [address] Dr. Nilay Gibbs Eosinophils/100 WBC (Bld) 0.3 % Critically low 0.9-7.0 [facility] Comment on above: Performed By: #### A MM #### [facility] [address] [place] [address] Dr. Nilay Gibbs Erythrocyte distribution width (RBC) [Ratio] 14.3 % Normal 11.0-15.0 [facility] Comment on above: Performed By: #### A MM #### [facility] [address] [place] [address] Dr. Nilay Gibbs Hematocrit (Bld) [Volume fraction] 39.3 % Critically low 42.0-54.0 [facility] Comment on above: Performed By: #### A MM #### [facility] [address] [place] [address] Dr. Nilay Gibbs Hemoglobin (Bld) [Mass/Vol] 13.1 g/dL Critically low 14.0-18.0 [facility] Comment on above: Performed By: #### A MM #### [facility] [address] [place] [address] Dr. Nilay Gibbs IG # 0.03 10e3/ul Normal 0.00-0.03 [facility] Comment on above: Performed By: #### A MM #### [facility] [address] [place] [address] Dr. Nilay Gibbs IG % 0.3 % Normal 0.0-0.5 [facility] Comment on above: Performed By: #### A MM #### [facility] [address] [place] [address] Dr. Nilay Gibbs LYMPH # 1.7 103/ul Normal 1.2-3.8 [facility] Comment on above: Performed By: #### A MM #### [facility] [address] [place] [address] Dr. Nilay Gibbs Lymphocytes/100 WBC (Bld) 14.5 % Critically low 20.5-60.0 [facility] Comment on above: Performed By: #### A MM #### [facility] [address] [place] [address] Dr. Nilay Gibbs MANUAL DIFF REQ NO Normal [facility] Comment on above: Performed By: #### A MM #### [facility] [address] [place] [address] Dr. Nilay Gibbs MCH (RBC) [Entitic mass] 29.2 pg Normal 25.9-34.0 [facility] Comment on above: Performed By: #### A MM #### [facility] [address] [place] [address] Dr. Nilay Gibbs MCHC (RBC) [Mass/Vol] 33.3 g/dL Normal 29.9-35.2 [facility] Comment on above: Performed By: #### A MM #### [facility] [address] [address] [address] Nilay Gibbs MCV (RBC) [Entitic vol] 87.5 fL Normal 80.0-94.0 [facility] Comment on above: Performed By: #### A MM #### [facility] [address] [address] [address] Nilay Gibbs MONO # 1.3 103/ul Critically high 0.3-0.8 [facility] Comment on above: Performed By: #### A MM #### [facility] [address] [address] [address] Nilay Gibbs Monocytes/100 WBC (Bld) 10.9 % Normal 1.7-12.0 [facility] Comment on above: Performed By: #### A MM #### [facility] [address] [address] [address] Nilay Gibbs NEUT # 8.7 103/ul Critically high 1.4-6.5 [facility] Comment on above: Performed By: #### A MM #### [facility] [address] [address] [address] Nilay Gibbs Neutrophils/100 WBC (Bld) 73.8 % Normal 43.0-75.0 [facility] Comment on above: Performed By: #### A MM #### [facility] [address] [address] [address] Nilay Gibbs Platelet mean volume (Bld) [Entitic vol] 10.9 fL Normal 9.5-13.5 [facility] Comment on above: Performed By: #### A MM #### [facility] [address] [address] [address] Nilay Gibbs PLT 171 103/ul Normal 150-450 [facility] Comment on above: Performed By: #### A MM #### [facility] [address] [address] [address] Nilay Gibbs RBC 4.49 106/ul Critically low 4.70-6.10 [facility] Comment on above: Performed By: #### A MM #### [facility] [address] [place] [address] Dr. Nilay Gibbs WBC 11.7 103/ul Critically high 4.0-11.0 [facility] Comment on above: Performed By: #### A MM #### [facility] [address] [place] [address] Dr. Nilay Gibbs CRPon 06-20-2022 CRP 25.4 mg/dL Critically high <=1.0 [facility] Comment on above: Performed By: #### C RP, CMP #### [facility] [address] [place] [address] Dr. Nilay Gibbs CULTURE BLOODon 06-20-2022 Microscopic examination of blood, culture Culture Observations: NO GROWTH AT 5 DAYS. Normal [facility] Comment on above: Performed By: #### C MP #### [facility] [address] [place] [address] Dr. Nilay Gibbs Microscopic examination of blood, culture Culture Observations: NO GROWTH AT 5 DAYS. [facility] Comment on above: Performed By: #### C MP #### [facility] [address] [place] [address] Dr. Nilay Gibbs LACTATE/LACTIC ACIDon 2022 Lactate [Moles/Vol] 0.7 mmol/L Normal 0.4-2.0 [facility] Comment on above: Performed By: #### A MM #### [facility] [address] [place] [address] Dr. Nilay Gibbs PROF 14(COMP METB)on 023 Albumin [Mass/Vol] 3.8 g/dL Normal 3.4-5.0 [facility] Comment on above: Performed By: #### C RP, CMP #### [facility] [address] [place] [address] Dr. Nilay Gibbs Albumin/Globulin [Mass ratio] 1.1 {ratio} [facility] Comment on above: Performed By: #### C RP, CMP #### [facility] [address] [place] [address] Dr. Nilay Gibbs ALP [Catalytic activity/Vol] 85 U/L Normal 46-116 [facility] Comment on above: Performed By: #### C RP, CMP #### [facility] [address] [place] [address] Dr. Nilay Gibbs ALT [Catalytic activity/Vol] 29 U/L Normal 16-63 [facility] Comment on above: Performed By: #### C RP, CMP #### [facility] [address] [place] [address] Dr. Nilay Gibbs Anion gap [Moles/Vol] 15.2 mmol/L Normal [facility] Comment on above: Performed By: #### C RP, CMP #### [facility] [address] [place] [address] Dr. Nilay Gibbs AST [Catalytic activity/Vol] 20 U/L Normal 15-37 [facility] Comment on above: Performed By: #### C RP, CMP #### [facility] [address] [place] [address] Dr. Nilay Gibbs Bilirubin [Mass/Vol] 1.1 mg/dL Critically high 0.2-1.0 [facility] Comment on above: Performed By: #### C RP, CMP #### [facility] [address] [place] [address] Dr. Nilay Gibbs Calcium [Mass/Vol] 9.4 mg/dL Normal 8.5-10.1 [facility] Comment on above: Performed By: #### C RP, CMP #### [facility] [address] [place] [address] Dr. Nilay Gibbs Chloride [Moles/Vol] 99 mmol/L Normal 98-107 [facility] Comment on above: Performed By: #### C RP, CMP #### [facility] [address] [place] [address] Dr. Nilay Gibbs CO2 [Moles/Vol] 25.7 mmol/L Normal 21.0-32.0 [facility] Comment on above: Performed By: #### C RP, CMP #### [facility] [address] [place] [address] Dr. Nilay Gibbs Creatinine [Mass/Vol] 1.32 mg/dL Critically high 0.70-1.30 [facility] Comment on above: Performed By: #### C RP, CMP #### [facility] [address] [place] [address] Dr. Nilay Gibbs EGFR-AF [place] >60 Normal >=60 [facility] Comment on above: Performed By: #### C RP, CMP #### [facility] [address] [place] [address] Dr. Nilay Gibbs EGFR-NON AF [place] >60 Normal >=60 [facility] Comment on above: Performed By: #### C RP, CMP #### [facility] [address] [place] [address] Dr. Nilay Gibbs Globulin (S) [Mass/Vol] 3.6 g/dL Normal [facility] Comment on above: Performed By: #### C RP, CMP #### [facility] [address] [place] [address] Dr. Nilay Gibbs Glucose [Mass/Vol] 106 mg/dL Normal 74-106 [facility] Comment on above: Performed By: #### C RP, CMP #### [facility] [address] [place] [address] Dr. Nilay Gibbs Potassium [Moles/Vol] 3.9 mmol/L Normal 3.5-5.1 [facility] Comment on above: Performed By: #### C RP, CMP #### [facility] [address] [place] [address] Dr. Nilay Gibbs Protein [Mass/Vol] 7.4 g/dL Normal 6.4-8.2 [facility] Comment on above: Performed By: #### C RP, CMP #### [facility] [address] [place] [address] Dr. Nilay Gibbs Sodium [Moles/Vol] 136 mmol/L Normal 136-145 [facility] Comment on above: Performed By: #### C RP, CMP #### [facility] [address] [place] [address] Dr. Nilay Gibbs Urea nitrogen [Mass/Vol] 10.0 mg/dL Normal 7.0-18.0 [facility] Comment on above: Performed By: #### C RP, CMP #### [facility] [address] [place] [address] Dr. Nilay Gibbs Urea nitrogen/Creatinine [Mass ratio] 7.6 mg/mg Normal [facility] Comment on above: Performed By: #### C RP, CMP #### [facility] [address] [address] [address] Nilay Gibbs SED RATE WESTERGRENon 2022 SED RATE 46 mm/hr Critically high <=15 [facility] Comment on above: Performed By: #### S EDR #### [facility] [address] [place] [address] Dr. Nilay Gibbs [facility]on SARS-CoV-2 (COVID-19) RNA TALHA+probe Ql (Unsp spec) Not detected Normal NOT DETECTED [facility] Comment on above: Result Comment: When [...] for this test is supported by the [employer] of Health and Human Service's declaration that [...] used). Performed By: #### A MM #### [facility] [address] [place] [address] Dr. Nilay Gibbs INFLUENZA A AND B AGon 01-31 INFLUANEGH SEE BELOW Normal [facility] Comment on above: Result Comment: Nega tive for Flu A protein angiten. Infection due to Flu A cannot be ruled out. Flu A angiten in the sample may be below the detection limit of the test. Performed By: #### A MM #### [facility] [address] [address] [address] Nilay Gibbs INFLUBANNER SEE BELOW Normal [facility] Comment on above: Result Comment: Nega tive for Flu B protein antigen. Infection due to Flu B cannot be ruled out. Flu B antigen in the sample may be below the detection limit of the test. Performed By: #### A MM #### [facility] [address] [address] [address] Nilay Gibbs INFLUENZA A AG Negative Normal NEGATIVE SEE COMMENT [facility] Comment on above: Performed By: #### A MM #### [facility] [address] [place] [address] Dr. Nilay Gibbs INFLUENZA B AG Negative Normal NEGATIVE SEE COMMENT [facility] Comment on above: Performed By: #### A MM #### [facility] [address] [address] [address] Nilay Gibbs INTERNAL CONTROLS Within Normal Limits Normal Wi thin Normal Limits [facility] Comment on above: Performed By: #### A MM #### [facility] [address] [place] [address] Dr. Nilay Gibbs Cholesterol [Mass/volume] in Serum or PlasmaOrdered By: Adam Young on 12-08-2021 Cholesterol [Mass/Vol] 205 mg/dL 140-200 [facility] Comment on above: Chol less than 200 m g/dl low riskChol 201-239 mg/dl borderline riskChol 240 mg/dl and greater high risk Cholesterol in LDL Calc [Mas s/Vol]Ordered By: Adam Young on 12-08-2021 Cholesterol in LDL [Mass/Vol] 120 mg/dL 0-100 [facility] Comment on above: LDL ATP III CLASSIFI CATIONLDL less than 100 mg/dL OptimalLDL 100-129 mg/dL Near or above optimalLDL 130-159 mg/dL Borderline highLDL 160-189 mg/dL HighLDL greater than 189 mg/dL Very high Cholesterol in VLDL Calc [Ma ss/Vol]Ordered By: Adam Young on 12-08-2021 Cholesterol in VLDL [Mass/Vol] 37 mg/dL [facility] No Panel InformationOrdered By: Adam Young on 12-08-2021 25-Hydroxy Vitamin D Total 50.6 ng/mL 30-100 [facility] Comment on above: VITAMIN D STATUS [...] Cholesterol in HDL [Mass/Vol] 47 mg/dL 29-71 [facility] Comment on above: HDL CHOL ATP-III CLA SSIFICATION Cardiovascular RiskHDL > or equal to 60 mg/dL LOWHDL < 40 mg/dL HIGH Serum or plasma total choles terol/high density lipoprotein (HDL) cholesterol mass ratOrdered By: Adam Young on 12-08-2021 Cholesterol.total/Ch olesterol in HDL [Mass ratio] 4.4 {ratio} <5.0 [facility] TSH DL <= 0.005 mIU/L QnOrde red By: Adam Young on 12-08-2021 TSH Qn 0.75 m[IU]/L 0.45-5.33 [facility] Triglyceride [Mass/volume] i n Serum or PlasmaOrdered By: Adam Young on 12-08-2021 Triglyceride [Mass/Vol] 188 mg/dL 35-149 [facility] Comment on above: TRIG ATP III CLASSIF ICATIONTRIG less than 150 mg/dL NormalTRIG 150-199 mg/dL Borderline highTRIG 200-500 mg/dL High TRIG greater than 500 mg/dL Very highStandard traceable to the Center for Disease Conrtrol and Prevention (CDC) test method. Covid-19 PCR ([facility])on SARS-CoV-2 (COVID-19) RNA TALHA+probe Ql (Unsp spec) Not detected Normal NOT DETECTED [facility] Comment on above: Result Comment: When [...] for this test is supported by the [place] of Health and Human Service's declaration that [...] used). Performed By: #### C MP #### [facility] [address] [place] [address] Dr. Nilay Gibbs ETHANOL (BLD ALC)on 12-08-19 22 Ethanol [Mass/Vol] 288 mg/dL Normal [facility] Comment on above: Performed By: #### C MP #### [facility] [address] [place] [address] Dr. Nilay Gibbs ALC NOTE NOTE: 80 mg/dl is th e legal limit for a blood alcohol level Normal [facility] Comment on above: Performed By: #### C MP #### [facility] [address] [place] [address] Dr. Nilay Gibbs Performed By: #### A MM #### [facility] [address] [place] [address] Dr. Nilay Gibbs Ethanol [Mass/Vol] 130 mg/dL Normal [facility] Comment on above: Performed By: #### A MM #### [facility] [address] [place] [address] Dr. Nilay Gibbs Ethanol [Mass/Vol] 196 mg/dL Normal [facility] Comment on above: Performed By: #### A MM #### [facility] [address] [place] [address] Dr. Nilay Gibbs ACETAMINOPHENon 12-06-2021 Acetaminophen [Mass/Vol] ug/mL Critically low 10.0-30.0 [facility] Comment on above: Performed By: #### A CET #### [facility] [address] [place] [address] Dr. Nilay Gibbs AMMONIAon 12-06-2021 Ammonia (P) [Moles/Vol] 22 umol/L Normal 11-32 [facility] Comment on above: Performed By: #### A MM #### [facility] [address] [place] [address] Dr. Nilay Gibbs CBC AUTO DIFFon 12-06-2021 BASO # 0.0 103/ul Normal 0.0-0.1 [facility] Comment on above: Performed By: #### A MM #### [facility] [address] [place] [address] Dr. Nilay Gibbs Basophils/100 WBC (Bld) 0.5 % Normal 0.2-2.0 [facility] Comment on above: Performed By: #### A MM #### [facility] [address] [place] [address] Dr. Nilay Gibbs EO # 0.1 103/ul Normal 0.0-0.7 [facility] Comment on above: Performed By: #### A MM #### [facility] [address] [place] [address] Dr. Nilay Gibbs Eosinophils/100 WBC (Bld) 1.0 % Normal 0.9-7.0 [facility] Comment on above: Performed By: #### A MM #### [facility] [address] [place] [address] Dr. Nilay Gibbs Erythrocyte distribution width (RBC) [Ratio] 12.9 % Normal 11.0-15.0 [facility] Comment on above: Performed By: #### A MM #### [facility] [address] [place] [address] Dr. Nilay Gibbs Hematocrit (Bld) [Volume fraction] 40.5 % Critically low 42.0-54.0 [facility] Comment on above: Performed By: #### A MM #### [facility] [address] [address] [address] Nilay Gibbs Hemoglobin (Bld) [Mass/Vol] 13.9 g/dL Critically low 14.0-18.0 [facility] Comment on above: Performed By: #### A MM #### [facility] [address] [address] [address] Nilay Gibbs IG # 0.02 10e3/ul Normal 0.00-0.03 [facility] Comment on above: Performed By: #### A MM #### [facility] [address] [place] [address] Dr. Nilay Gibbs IG % 0.3 % Normal 0.0-0.5 [facility] Comment on above: Performed By: #### A MM #### [facility] [address] [place] [address] Dr. Nilay Gibbs LYMPH # 2.7 103/ul Normal 1.2-3.8 [facility] Comment on above: Performed By: #### A MM #### [facility] [address] [place] [address] Dr. Nilay Gibbs Lymphocytes/100 WBC (Bld) 45.2 % Normal 20.5-60.0 [facility] Comment on above: Performed By: #### A MM #### [facility] [address] [place] [address] Dr. Nilay Gibbs MANUAL DIFF REQ NO Normal [facility] Comment on above: Performed By: #### A MM #### [facility] [address] [place] [address] Dr. Nilay Gibbs MCH (RBC) [Entitic mass] 29.8 pg Normal 25.9-34.0 [facility] Comment on above: Performed By: #### A MM #### [facility] [address] [place] [address] Dr. Nilay Gibbs MCHC (RBC) [Mass/Vol] 34.3 g/dL Normal 29.9-35.2 [facility] Comment on above: Performed By: #### A MM #### [facility] [address] [address] [address] Nilay Gibbs MCV (RBC) [Entitic vol] 86.9 fL Normal 80.0-94.0 [facility] Comment on above: Performed By: #### A MM #### [facility] [address] [address] [address] Nilay Gibbs MONO # 0.4 103/ul Normal 0.3-0.8 [facility] Comment on above: Performed By: #### A MM #### [facility] [address] [address] [address] Nilay Gibbs Monocytes/100 WBC (Bld) 6.3 % Normal 1.7-12.0 [facility] Comment on above: Performed By: #### A MM #### [facility] [address] [place] [address] Dr. Nilay Gibbs NEUT # 2.7 103/ul Normal 1.4-6.5 [facility] Comment on above: Performed By: #### A MM #### [facility] [address] [place] [address] Dr. Nilay Gibbs Neutrophils/100 WBC (Bld) 46.7 % Normal 43.0-75.0 [facility] Comment on above: Performed By: #### A MM #### [facility] [address] [place] [address] Dr. Nilay Gibbs Platelet mean volume (Bld) [Entitic vol] 10.4 fL Normal 9.5-13.5 [facility] Comment on above: Performed By: #### A MM #### [facility] [address] [place] [address] Dr. Nilay Gibbs PLT 237 103/ul Normal 150-450 [facility] Comment on above: Performed By: #### A MM #### [facility] [address] [address] [address] Nilay Gibbs RBC 4.66 106/ul Critically low 4.70-6.10 [facility] Comment on above: Performed By: #### A MM #### [facility] [address] [place] [address] Dr. Nilay Gibbs WBC 5.9 103/ul Normal 4.0-11.0 [facility] Comment on above: Performed By: #### A MM #### [facility] [address] [place] [address] Dr. Nilay Gibbs DRUG SCREEN RAPID (URINE)on 12-06-2021 AMP Negative Normal NEGATIVE [facility] Comment on above: Performed By: #### D RUGRPD #### [facility] [address] [place] [address] Dr. Nilay Gibbs BAR Negative Normal NEGATIVE [facility] Comment on above: Performed By: #### D RUGRPD #### [facility] [address] [place] [address] Dr. Nilay Gibbs BUP Negative Normal NEGATIVE [facility] Comment on above: Performed By: #### D RUGRPD #### [facility] [address] [place] [address] Dr. Nilay Gibbs BZO Positive Abnormal NEGATIVE [facility] Comment on above: Performed By: #### D RUGRPD #### [facility] [address] [place] [address] Dr. Nilay Gibbs ROQUE Negative Normal NEGATIVE [facility] Comment on above: Performed By: #### D RUGRPD #### [facility] [address] [place] [address] Dr. Nilay Gibbs CUT-OFFS SEE BELOW Normal [facility] Comment on above: Result Comment: AMP [...] ng/mL Performed By: #### D RUGRPD #### [facility] [address] [place] [address] Dr. Nilay Gibbs DRUG CUT HEADER DRUG CLASS TEST SYST EM CUT-OFF CONCENTRATIONS ARE FOLLOWS: Normal [facility] Comment on above: Performed By: #### D RUGRPD #### [facility] [address] [place] [address] Dr. Nilay Gibbs mAMP Negative Normal NEGATIVE [facility] Comment on above: Performed By: #### D RUGRPD #### [facility] [address] [place] [address] Dr. Nilay Gibbs MTD Negative Normal NEGATIVE [facility] Comment on above: Performed By: #### D RUGRPD #### [facility] [address] [place] [address] Dr. Nilay Gibbs OPI Negative Normal NEGATIVE [facility] Comment on above: Performed By: #### D RUGRPD #### [facility] [address] [place] [address] Dr. Nilay Gibbs OXY Negative Normal NEGATIVE [facility] Comment on above: Performed By: #### D RUGRPD #### [facility] [address] [place] [address] Dr. Nilay Gibbs PCP Negative Normal NEGATIVE [facility] Comment on above: Performed By: #### D RUGRPD #### [facility] [address] [place] [address] Dr. Nilay Gibbs PPX Negative Normal NEGATIVE [facility] Comment on above: Performed By: #### D RUGRPD #### [facility] [address] [place] [address] Dr. Nilay Gibbs TCA Negative Normal NEGATIVE [facility] Comment on above: Performed By: #### D RUGRPD #### [facility] [address] [place] [address] Dr. Nilay Gibbs THC Negative Normal NEGATIVE [facility] Comment on above: Performed By: #### D RUGRPD #### [facility] [address] [place] [address] Dr. Nilay Gibbs ETHANOL (BLD ALC)on 12-07-19 22 ALC NOTE NOTE: 80 mg/dl is th e legal limit for a blood alcohol level Normal [facility] Comment on above: Performed By: #### C MP #### [facility] [address] [place] [address] Dr. Nilay Gibbs Ethanol [Mass/Vol] 336 mg/dL Normal [facility] Comment on above: Performed By: #### C MP #### [facility] [address] [place] [address] Dr. Nilay Gibbs PROF 14(COMP METB)on 022 Albumin [Mass/Vol] 4.2 g/dL Normal 3.4-5.0 [facility] Comment on above: Performed By: #### C MP #### [facility] [address] [place] [address] Dr. Nilay Gibbs Albumin/Globulin [Mass ratio] 1.3 {ratio} Normal [facility] Comment on above: Performed By: #### C MP #### [facility] [address] [place] [address] Dr. Nilay Gibbs ALP [Catalytic activity/Vol] 104 U/L Normal 46-116 [facility] Comment on above: Performed By: #### C MP #### [facility] [address] [place] [address] Dr. Nilay Gibbs ALT [Catalytic activity/Vol] 41 U/L Normal 16-63 [facility] Comment on above: Performed By: #### C MP #### [facility] [address] [place] [address] Dr. Nilay Gibbs Anion gap [Moles/Vol] 11.5 mmol/L Normal [facility] Comment on above: Performed By: #### C MP #### [facility] [address] [place] [address] Dr. Nilay Gibbs AST [Catalytic activity/Vol] 37 U/L Normal 15-37 [facility] Comment on above: Performed By: #### C MP #### [facility] [address] [place] [address] Dr. Nilay Gibbs Bilirubin [Mass/Vol] 0.2 mg/dL Normal 0.2-1.0 [facility] Comment on above: Performed By: #### C MP #### [facility] [address] [place] [address] Dr. Nilay Gibbs Calcium [Mass/Vol] 8.6 mg/dL Normal 8.5-10.1 [facility] Comment on above: Performed By: #### C MP #### [facility] [address] [address] [address] Nilay Gibbs Chloride [Moles/Vol] 97 mmol/L Critically low 98-107 [facility] Comment on above: Performed By: #### C MP #### [facility] [address] [place] [address] Dr. Nilay Gibbs CO2 [Moles/Vol] 26.0 mmol/L Normal 21.0-32.0 [facility] Comment on above: Performed By: #### C MP #### [facility] [address] [place] [address] Dr. Nilay Gibbs Creatinine [Mass/Vol] 1.47 mg/dL Critically high 0.70-1.30 [facility] Comment on above: Performed By: #### C MP #### [facility] [address] [place] [address] Dr. Nilay Gibbs EGFR-AF [place] >60 Normal >=60 [facility] Comment on above: Performed By: #### C MP #### [facility] [address] [place] [address] Dr. Nilay Gibbs EGFR-NON AF [place] 56 mL/min/1.73m2 Critically low >=60 [facility] Comment on above: Performed By: #### C MP #### [facility] [address] [place] [address] Dr. Nilay Gibbs Globulin (S) [Mass/Vol] 3.2 g/dL Normal [facility] Comment on above: Performed By: #### C MP #### [facility] [address] [place] [address] Dr. Nilay Gibbs Glucose [Mass/Vol] 117 mg/dL Critically high 74-106 [facility] Comment on above: Performed By: #### C MP #### [facility] [address] [place], [place] [address] Dr. Nilay Gibbs Potassium [Moles/Vol] 3.5 mmol/L Normal 3.5-5.1 [facility] Comment on above: Performed By: #### C MP #### [facility] [address] [place], [place] [address] Dr. Nilay Gibbs Protein [Mass/Vol] 7.4 g/dL Normal 6.4-8.2 [facility] Comment on above: Performed By: #### C MP #### [facility] [address] [place] [address] [address] Nilay Gibbs Sodium [Moles/Vol] 131 mmol/L Critically low 136-145 [facility] Comment on above: Performed By: #### C MP #### [facility] [address] [address] [address] Nilay Gibbs Urea nitrogen [Mass/Vol] 14.0 mg/dL Normal 7.0-18.0 [facility] Comment on above: Performed By: #### C MP #### [facility] [address] [address] [address] Nilay Gibbs Urea nitrogen/Creatinine [Mass ratio] 9.5 mg/mg Normal [facility] Comment on above: Performed By: #### C MP #### [facility] [id number] Nilay Gibbs SALICYLATEon 12-06-2021 SALICYLATE <2.8 Normal <=19.9 [facility] Comment on above: Performed By: #### A MM #### [facility] [address] [place], [place] [address] Dr. Nilay Gibbs MRI Shoulder w/o Lefton [...] by Stephen Ware on 11/11/2021 0955 Normal [facility] Activated partial thrombopla stin time (aPTT) in platelet poor plasma by coagulation aOrdered By: Kristal Goldberg on 09-27-2021 aPTT Coag (PPP) [Time] 34.7 s 25.1-36.5 [facility] Albumin [Mass/volume] in Ser um or PlasmaOrdered By: Kristal Goldberg on 09-27-2021 Albumin [Mass/Vol] 4.1 g/dL 3.2-5.5 [facility] Basophils Auto (Bld) [#/Vol] Ordered By: Kristal Goldberg on 09-27-2021 Basophils (Bld) [#/Vol] 0.0 10*3/uL 0.0-0.2 [facility] Basophils/100 WBC Auto (Bld) Ordered By: Kristal Goldberg on 09-27-2021 Basophils/100 WBC (Bld) 0.3 % . [facility] Bilirubin Auto test strip Ql (U)Ordered By: Kristal Goldberg on 09-27-2021 Bilirubin Ql (U) Negative Negative [facility] Blood hemoglobin measurement (mass/volume)Ordered By: Kristal Goldberg on 09-27-2021 Hemoglobin (Bld) [Mass/Vol] 13.6 g/dL 13.0-17.0 [facility] Blood leukocytes automated c ount (number/volume)Ordered By: Kristal Goldberg on 09-27-2021 WBC (Bld) [#/Vol] 5.7 10*3/uL 4.5-11.0 [facility] CBC AUTO DIFFon 09-27-2021 BASO # 0.0 103/ul Normal 0.0-0.1 [facility] Comment on above: Performed By: #### A MM #### [facility] [address] [address] [address] Nilay Gibbs Basophils/100 WBC (Bld) 0.5 % Normal 0.2-2.0 [facility] Comment on above: Performed By: #### A MM #### [facility] [address] [place] [address] Dr. Nilay Gibbs EO # 0.1 103/ul Normal 0.0-0.7 [facility] Comment on above: Performed By: #### A MM #### [facility] [address] [address] [address] Nilay Gibbs Eosinophils/100 WBC (Bld) 1.6 % Normal 0.9-7.0 [facility] Comment on above: Performed By: #### A MM #### [facility] [address] [place] [address] Dr. Nilay Gibbs Erythrocyte distribution width (RBC) [Ratio] 14.0 % Normal 11.0-15.0 [facility] Comment on above: Performed By: #### A MM #### [facility] [address] [place] [address] Dr. Nilay Gibbs Hematocrit (Bld) [Volume fraction] 40.2 % Critically low 42.0-54.0 [facility] Comment on above: Performed By: #### A MM #### [facility] [address] [place] [address] Dr. Nilay Gibbs Hemoglobin (Bld) [Mass/Vol] 13.7 g/dL Critically low 14.0-18.0 [facility] Comment on above: Performed By: #### A MM #### [facility] [address] [place] [address] Dr. Nilay Gibbs IG # 0.01 10e3/ul Normal 0.00-0.03 [facility] Comment on above: Performed By: #### A MM #### [facility] [address] [place] [address] Dr. Nilay Gibbs IG % 0.2 % Normal 0.0-0.5 [facility] Comment on above: Performed By: #### A MM #### [facility] [address] [place] [address] Dr. Nilay Gibbs LYMPH # 2.1 103/ul Normal 1.2-3.8 [facility] Comment on above: Performed By: #### A MM #### [facility] [address] [place] [address] Dr. Nilay Gibbs Lymphocytes/100 WBC (Bld) 37.1 % Normal 20.5-60.0 [facility] Comment on above: Performed By: #### A MM #### [facility] [address] [place] [address] Dr. Nilay Gibbs MANUAL DIFF REQ NO Normal [facility] Comment on above: Performed By: #### A MM #### [facility] [address] [place] [address] Dr. Nilay Gibbs MCH (RBC) [Entitic mass] 30.1 pg Normal 25.9-34.0 [facility] Comment on above: Performed By: #### A MM #### [facility] [address] [place] [address] Dr. Nilay Gibbs MCHC (RBC) [Mass/Vol] 34.1 g/dL Normal 29.9-35.2 [facility] Comment on above: Performed By: #### A MM #### [facility] [address] [place] [address] Dr. Nilay Gibbs MCV (RBC) [Entitic vol] 88.4 fL Normal 80.0-94.0 [facility] Comment on above: Performed By: #### A MM #### [facility] [address] [place] [address] Dr. Nilay Gibbs MONO # 0.4 103/ul Normal 0.3-0.8 [facility] Comment on above: Performed By: #### A MM #### [facility] [address] [place] [address] Dr. Nilay Gibbs Monocytes/100 WBC (Bld) 7.2 % Normal 1.7-12.0 [facility] Comment on above: Performed By: #### A MM #### [facility] [address] [place] [address] Dr. Nilay Gibbs NEUT # 3.1 103/ul Normal 1.4-6.5 [facility] Comment on above: Performed By: #### A MM #### [facility] [address] [place] [address] Dr. Nilay Gibbs Neutrophils/100 WBC (Bld) 53.4 % Normal 43.0-75.0 [facility] Comment on above: Performed By: #### A MM #### [facility] [address] [place] [address] Dr. Nilay Gibbs Platelet mean volume (Bld) [Entitic vol] 10.3 fL Normal 9.5-13.5 [facility] Comment on above: Performed By: #### A MM #### [facility] [address] [place] [address] Dr. Nilay Gibbs PLT 254 103/ul Normal 150-450 [facility] Comment on above: Performed By: #### A MM #### [facility] [address] [place] [address] Dr. Nilay Gibbs RBC 4.55 106/ul Critically low 4.70-6.10 [facility] Comment on above: Performed By: #### A MM #### [facility] [address] [place] [address] Dr. Nilay Gibbs WBC 5.7 103/ul Normal 4.0-11.0 [facility] Comment on above: Performed By: #### A MM #### [facility] [address] [place] [address] HEAD WO CONon [...] by: RUFINA MARIN Date: 2021-09-27 10:27 Normal [facility] CTA HEAD WO W CONon [...] KING Date: 2021-09-27 12:19 Normal [facility] CTA NECK WO W CONon 09-28-19 CTA NECK WO W CON CT ANGIOGRAPHY [...] NEL KING Date: 2021-09-27 12:06 Normal [facility] Creatine kinase [Enzymatic a ctivity/volume] in Serum or PlasmaOrdered By: Kristal Goldberg on 09-27-2021 CK [Catalytic activity/Vol] 181 U/L 22-269 [facility] Creatinine and Glomerular fi ltration rate.predicted panel (S/P/Bld)Ordered By: Kristal Goldebrg on 09-27-2021 Creatinine [Mass/Vol] 1.36 mg/dL 0.64-1.27 [facility] Eosinophils Auto (Bld) [#/Vo l]Ordered By: Kristal Goldberg on 09-27-2021 Eosinophils (Bld) [#/Vol] 0.1 10*3/uL 0.0-0.45 [facility] Eosinophils/100 WBC Auto (Bl d)Ordered By: Kristal Goldberg on 09-27-2021 Eosinophils/100 WBC (Bld) 1.2 % . [facility] Erythrocyte distribution wid th Auto (RBC) [Ratio]Ordered By: Kristal Goldberg on 09-27-2021 Erythrocyte distribution width (RBC) [Ratio] 14.5 % 12.0-14.8 [facility] Estimated glomerular filtrat ion rate (GFR) non- AmericanOrdered By: Kristal Goldberg on 09-27-2021 GFR/1.73 sq M.predicted among non-blacks MDRD (S/P/Bld) [Vol rate/Area] > 60 mL/Min [facility] Globulin Calc (S) [Mass/Vol] Ordered By: Kristal Goldberg on 09-27-2021 Globulin (S) [Mass/Vol] 2.4 g/dL [facility] Hematocrit Auto (Bld) [Volum e fraction]Ordered By: Kristal Goldberg on 09-27-2021 Hematocrit (Bld) [Volume fraction] 40.8 % 38.8-50.0 [facility] Ketones Auto test strip (U) [Mass/Vol]Ordered By: Kristal Goldberg on 09-27-2021 Ketones (U) [Mass/Vol] Negative Negative [facility] - CoagulationOrde red By: Kristal Goldberg on 09-27-2021 PT Coag (PPP) [Time] 11.8 s 9.0-12.9 [facility] - Hematology and Cell countsOrdered By: Kristal Goldberg on 09-27-2021 Nucleated RBC/100 WBC (Bld) [Ratio] 0.0 % 0-0.5 [facility] Lymphocytes Auto (Bld) [#/Vo l]Ordered By: Kristal Goldberg on 09-27-2021 Lymphocytes (Bld) [#/Vol] 1.8 10*3/uL 1.00-4.8 [facility] Lymphocytes/100 WBC Auto (Bl d)Ordered By: Kristal Goldberg on 09-27-2021 Lymphocytes/100 WBC (Bld) 31.2 % . [facility] MCH Auto (RBC) [Entitic mass ]Ordered By: Kristal Goldberg on 09-27-2021 MCH (RBC) [Entitic mass] 30.1 pg 27.5-35.2 [facility] MCHC Auto (RBC) [Mass/Vol]Or dered By: Kritsal Goldberg on 09-27-2021 MCHC (RBC) [Mass/Vol] 33.4 g/dL 32.5-35.6 [facility] MCV Auto (RBC) [Entitic vol] Ordered By: Kristal Goldberg on 09-27-2021 MCV (RBC) [Entitic vol] 90.3 fL 83.5-101 [facility] Monocytes Auto (Bld) [#/Vol] Ordered By: Kristal Goldberg on 09-27-2021 Monocytes (Bld) [#/Vol] 0.3 10*3/uL 0.0-0.8 [facility] Monocytes/100 WBC Auto (Bld) Ordered By: Kristal Goldberg on 09-27-2021 Monocytes/100 WBC (Bld) 6.0 % . [facility] Neutrophils Auto (Bld) [#/Vo l]Ordered By: Kristal Goldberg on 09-27-2021 Neutrophils (Bld) [#/Vol] 3.5 10*3/uL 1.8-7.7 [facility] Neutrophils/100 WBC Auto (Bl d)Ordered By: Kristal Goldberg on 09-27-2021 Neutrophils/100 WBC (Bld) 61.3 % . [facility] No Panel InformationOrdered By: Kristal Goldberg on 09-27-2021 Estimated GFR () > 60 mL/Min [facility] Comment on above: GFR estimated refere nce range: According to KDOQI guidelines, <60 ml/min/1.73m2 is sufficient to diagnose a patient with chronic kidney disease. Pharmacy Creatinine Clearance (Chem 94.06 [facility] PROF CHEM 8 (BAS METB)on Anion gap [Moles/Vol] 10.0 mmol/L Normal [facility] Comment on above: Performed By: #### C MP #### [facility] [address] [address] [address] Nilay Gibbs Calcium [Mass/Vol] 9.4 mg/dL Normal 8.5-10.1 [facility] Comment on above: Performed By: #### C MP #### [facility] [address] [place] [address] Dr. Nilay Gibbs Chloride [Moles/Vol] 103 mmol/L Normal 98-107 [facility] Comment on above: Performed By: #### C MP #### [facility] [address] [place] [address] Dr. Nilay Gibbs CO2 [Moles/Vol] 27.6 mmol/L Normal 21.0-32.0 [facility] Comment on above: Performed By: #### C MP #### [facility] [address] [place] [address] Dr. Nilay Gibbs Creatinine [Mass/Vol] 1.39 mg/dL Critically high 0.70-1.30 [facility] Comment on above: Performed By: #### C MP #### [facility] [address] [place] [address] Dr. Nilay Gibbs EGFR-AF [place] >60 Normal >=60 [facility] Comment on above: Performed By: #### C MP #### [facility] [address] [place] [address] [address] Nilay Gibbs EGFR-NON AF [place] 60 mL/min/1.73m2 Normal >=60 [facility] Comment on above: Performed By: #### C MP #### [facility] [address] [place] [address] Dr. Nilay Gibbs Glucose [Mass/Vol] 115 mg/dL Critically high 74-106 [facility] Comment on above: Performed By: #### C MP #### [facility] [address] [address] [address] Nilay Gibbs Potassium [Moles/Vol] 3.6 mmol/L Normal 3.5-5.1 [facility] Comment on above: Performed By: #### C MP #### [facility] [address] [address] [address] Nilay Gibbs Sodium [Moles/Vol] 137 mmol/L Normal 136-145 [facility] Comment on above: Performed By: #### C MP #### [facility] [address] [place] [address] [address] Nilay Gibbs Urea nitrogen [Mass/Vol] 17.0 mg/dL Normal 7.0-18.0 [facility] Comment on above: Performed By: #### C MP #### [facility] [address] [place] [address] Dr. Nilay Gibbs Urea nitrogen/Creatinine [Mass ratio] 12.2 mg/mg Normal [facility] Comment on above: Performed By: #### C MP #### [facility] [address] [address] [address] Nilay Gibbs PROTIMEon 09-27-2021 INR Coag (PPP) [Relative time] 0.99 {INR} Normal [facility] Comment on above: Performed By: #### P T, PTT #### [facility] [address] [place] [address] Dr. Nilay Gibbs INR GUIDELINES SEE BELOW Normal [facility] Comment on above: Result Comment: PETRONA RED INR: 2.0 - 3.0 CONDITIONS NOT LISTED BELOW 2.5 - 3.5 FOR PROSTHETIC HEART VALVE REPLACEMENT 2.5 - 3.5 RECURRENT THROMBOSIS Performed By: #### P T, PTT #### [facility] [address] [address] [address] Nilay Gibbs PT Coag (PPP) [Time] 10.7 s Normal 9.0-11.6 [facility] Comment on above: Performed By: #### P T, PTT #### [facility] [address] [place], [place] [id number] Dr. Nilay Gibbs PTTon 09-27-2021 aPTT Coag (Bld) [Time] 29.1 s Normal 22.3-36.2 [facility] Comment on above: Performed By: #### P T, PTT #### [facility] [address] [place] [address] Dr. Nilay Gibbs Platelet mean volume Auto (B ld) [Entitic vol]Ordered By: Kristal Goldberg on 09-27-2021 Platelet mean volume (Bld) [Entitic vol] 8.7 fL 6.6-10.1 [facility] Platelet poor plasma interna tional normalized ratio (INR) by coagulation assay (relatOrdered By: Kristal Goldberg on 09-27-2021 INR Coag (PPP) [Relative time] 1.1 {INR} [facility] Comment on above: INR Therapeutic Rang [...] 09-27-2021 Platelets (Bld) [#/Vol] 240 10*3/uL 150-450 [facility] Protein Auto test strip (U) [Mass/Vol]Ordered By: Kristal Goldberg on 09-27-2021 Protein (U) [Mass/Vol] Negative Negative [facility] Protein [Mass/volume] in Ser um or PlasmaOrdered By: Kristal Goldberg on 09-27-2021 Protein [Mass/Vol] 6.5 g/dL 6.1-7.9 [facility] RBC Auto (Bld) [#/Vol]Ordere d By: Kristal Goldberg on 09-27-2021 RBC (Bld) [#/Vol] 4.52 10*6/uL 3.90-5.60 [facility] Serum or plasma alanine marquez otransferase measurement without P-5'-P (enzymatic activiOrdered By: Kristal Goldberg on 09-27-2021 ALT No additional P-5'-P [Catalytic activity/Vol] 22 U/L 10-60 [facility] Serum or plasma albumin/glob ulin mass ratioOrdered By: Kristal Goldberg on 09-27-2021 Albumin/Globulin [Mass ratio] 1.7 {ratio} [facility] Serum or plasma alkaline kimi sphatase measurement (enzymatic activity/volume)Ordered By: Kristal Goldberg on 09-27-2021 ALP [Catalytic activity/Vol] 72 U/L 32-92 [facility] Serum or plasma aspartate am inotransferase measurement (enzymatic activity/volume)Ordered By: Kristal Goldberg on 09-27-2021 AST [Catalytic activity/Vol] 24 U/L 10-42 [facility] Serum or plasma calcium isabel urement (mass/volume)Ordered By: Kristal Goldberg on 09-27-2021 Calcium [Mass/Vol] 9.6 mg/dL 8.2-10.2 [facility] Serum or plasma chloride airam surement (moles/volume)Ordered By: Kristal Goldberg on 09-27-2021 Chloride [Moles/Vol] 98 mmol/L 95-114 [facility] Serum or plasma creatine kin ase MB (CKMB)/total creatine kinase (CK) ratio by calculaOrdered By: Kristal Goldberg on 09-27-2021 CK.MB Calc [Catalytic fraction] 1.7 % 0.00-2.50 [facility] Serum or plasma creatine kin ase MB measurement (mass/volume)Ordered By: Kristal Goldberg on 09-27-2021 CK.MB [Mass/Vol] 3.1 ng/mL 0.6-6.3 [facility] Serum or plasma glucose isabel urement (mass/volume)Ordered By: Kristal Goldberg on 09-27-2021 Glucose [Mass/Vol] 94 mg/dL 70-100 [facility] Comment on above: ADA recommended refe [...] on 09-27-2021 Potassium [Moles/Vol] 3.9 mmol/L 3.5-5.1 [facility] Serum or plasma sodium measu rement (moles/volume)Ordered By: Kristal Goldberg on 09-27-2021 Sodium [Moles/Vol] 135 mmol/L 136-146 [facility] Serum or plasma total biliru bin measurement (mass/volume)Ordered By: Kristal Goldberg on 09-27-2021 Bilirubin [Mass/Vol] 0.8 mg/dL 0.3-1.2 [facility] Serum or plasma total carbon dioxide measurement (moles/volume)Ordered By: Kristal Goldberg on 09-27-2021 CO2 [Moles/Vol] 24.8 mmol/L 22.0-30.0 [facility] Serum or plasma urea nitroge n measurement (mass/volume)Ordered By: Kristal Goldberg on 09-27-2021 Urea nitrogen [Mass/Vol] 13 mg/dL 9-23 [facility] TROPONIN, HIGH SENSITIVITYon 09-27-2021 HSTROP 4.5 pg/mL Normal 4.0-76.1 [facility] Comment on above: Result Comment: CUT- OFF POINTS HAVE BEEN ESTABLISHED BASED ON THE FOURTH UNIVERSAL DEFINITIONS OF MYOCARDIAL INFARCTION. THE UPPER REFERENCE LIMIT (URL) OF TROPONIN, DEFINED THE 99TH PERCENTILE OF cTnI DISTRIBUTION IN A REFERENCE POPULATION, HAS BEEN CONFIRMED THE DECISION THRESHOLD FOR IN DIAGNOSIS. Performed By: #### C #### [facility] [address] [address] [address] Nilay Gibbs Troponin I.cardiac [Mass/vol ume] in Serum or Plasma by High sensitivity methodOrdered By: Kristal Goldberg on 09-27-2021 Troponin I.cardiac High sensitivity method [Mass/Vol] < 3 pg/mL 0-20 [facility] Urine appearanceOrdered By: Kristal Goldberg on 09-27-2021 Appearance (U) Clear Clear [facility] Urine colorOrdered By: Aurora Goldberg on 09-27-2021 Color (U) Yellow Yellow [facility] Urine glucose measurement by automated test strip (mass/volume)Ordered By: Kristal Goldberg on 09-27-2021 Glucose Auto test strip (U) [Mass/Vol] Normal mg/dL Normal [facility] Urine hemoglobin detection b y automated test stripOrdered By: Kristal Goldberg on 09-27-2021 Hemoglobin Auto test strip Ql (U) Negative Negative [facility] Urine leukocyte esterase det ection by automated test stripOrdered By: Kristal Goldberg on 09-27-2021 Leukocyte esterase Auto test strip Ql (U) Negative Negative [facility] Urine nitrite detection by a utomated test stripOrdered By: Kristal Goldberg on 09-27-2021 Nitrite Auto test strip Ql (U) Negative Negative [facility] Urobilinogen Auto test strip (U) [Mass/Vol]Ordered By: Kristal Goldberg on 09-27-2021 Urobilinogen (U) [Mass/Vol] Normal mg/dL Normal [facility] pH Auto test strip (U)Ordere d By: Kristal Goldberg on 09-27-2021 pH (U) 1.005 [pH] 1.001-1.030 [facility] pH (U) 5.5 [pH] 5.0-9.0 [facility] XR SHOULDER 2V AP/TRUE AP LT [...] Mild glenohumeral narrowing IMPRESSION: Mild glenohumeral arthrosis 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 Retort Pre [employer]er: [employer] Transcribe Date/Time: Aug 19 2020 12:49P Dictated by : FLORENTIN PATEL MD This examination was interpreted and the report reviewed and electronically signed by: FLORENTIN PATEL MD on Aug 19 2020 12:49PM EST [id number] [facility] XR HAND 3V PA/LAT/OBL BILon 04-02-2020 [...] than left hand and superimposed degenerative change. Ret[employer] Pre [employer]er: [employer] Transcribe Date/Time: Apr 02 2020 10:18A Dictated by : EDDA PAUL MD This examination was interpreted and the report reviewed and electronically signed by: EDDA PAUL MD on Apr 02 2020 10:25AM EST [id number] Normal [facility] CT LUMBAR SPINE WO CONTRASTo n [...] Mike Felipe MD 07/12/18 Final result Normal [facility] CT THORACIC SPINE WO CONTRAS Ton [...] Mike Felipe MD 07/12/18 Final result Normal [facility] Vital Signs Date Time Vital Sign Value Performing Clinician Florentin quinn 08-22-2023 12:40-0400 Body height 190.5 cm MD Leydi Aceves Work Phone: [facility] 08-22-2023 12:40-0400 Body mass index (BMI) [Ratio] 31.6 kg/m2 MD Leydi Aceves Work Phone: [facility] 08-22-2023 12:40-0400 Body temperature 98.6 [degF] MD Leydi Aceves Work Phone: [facility] 08-22-2023 12:40-0400 Body weight 114.81 kg MD Leydi Aceves Work Phone: [facility] 08-22-2023 12:40-0400 Heart rate 84 /min MD Leydi Aceves Work Phone: [facility] 08-22-2023 12:40-0400 Respiratory rate 18 /min MD Leydi Aceves Work Phone: [facility] 08-22-2023 12:40-0400 SaO2% (BldA) [Mass fraction] 97 % MD Leydi Aceves Work Phone: [facility] 06-24-2023 14:34-0400 Body mass index (BMI) [Ratio] 29.92 kg/m2 Delmy Boyle MD Work Phone: [facility] 06-24-2023 14:34-0400 Body weight 105.69 kg Delmy Boyle MD Work Phone: [facility] 06-24-2023 14:34-0400 Diastolic blood pressure 87 mm[Hg] Delmy Boyle MD Work Phone: [facility] 06-24-2023 14:34-0400 Heart rate 89 /min Delmy Boyle MD Work Phone: [facility] 06-24-2023 14:34-0400 Respiratory rate 18 /min Delmy Boyle MD Work Phone: [facility] 06-24-2023 14:34-0400 SaO2% (BldA) [Mass fraction] 100 % Delmy Boyle MD Work Phone: [facility] 06-24-2023 14:34-0400 Systolic blood pressure 124 mm[Hg] Delmy Boyle MD Work Phone: [facility] 01-01-2022 11:34-0400 Body weight 99.79 kg Delmy Boyle MD Work Phone: [facility] 01-01-2022 11:34-0400 Diastolic blood pressure 65 mm[Hg] Delmy Boyle MD Work Phone: [facility] 01-01-2022 11:34-0400 Heart rate 65 /min Delmy Boyle MD Work Phone: [facility] 01-01-2022 11:34-0400 Systolic blood pressure 102 mm[Hg] Delmy Boyle MD Work Phone: [facility] 12-10-2021 15:30-0400 Diastolic blood pressure 71 mm[Hg] MD Leydi Aceves Work Phone: [facility] 12-10-2021 15:30-0400 Heart rate 70 /min MD Leydi Aceves Work Phone: [facility] 12-10-2021 15:30-0400 Respiratory rate 16 /min MD Leydi Aceves Work Phone: [facility] 12-10-2021 15:30-0400 SaO2% (BldA) [Mass fraction] 98 % MD Leydi Aceves Work Phone: [facility] 12-10-2021 15:30-0400 Systolic blood pressure 113 mm[Hg] MD Leydi Aceves Work Phone: [facility] 12-10-2021 07:30-0400 Body temperature 98 [degF] MD Leydi Aceves Work Phone: [facility] 12-08-2021 15:45-0400 Body height 190.5 cm MD Leydi Aceves Work Phone: [facility] 12-08-2021 08:56-0400 Body weight 99.79 kg MD Leydi Aceves Work Phone: [facility] 09-27-2021 21:38-0400 Heart rate 68 /min MD Leydi Aceves Work Phone: [facility] 09-27-2021 21:30-0400 Diastolic blood pressure 79 mm[Hg] MD Leydi Aceves Work Phone: [facility] 09-27-2021 21:30-0400 Respiratory rate 20 /min MD Leydi Aceves Work Phone: [facility] 09-27-2021 21:30-0400 SaO2% (BldA) [Mass fraction] 100 % MD Leydi Aceves Work Phone: [facility] 09-27-2021 21:30-0400 Systolic blood pressure 135 mm[Hg] MD Leydi Aceves Work Phone: [facility] 09-27-2021 18:31-0400 Body height 190.5 cm MD Leydi Aceves Work Phone: [facility] 09-27-2021 18:31-0400 Body temperature 98 [degF] MD Leydi Aceves Work Phone: [facility] 09-27-2021 18:31-0400 Body weight 99.79 kg MD Leydi Aceves Work Phone: [facility] Encounters Encounter Date Encounter Type Care Provider Facility Start: 08-22-2023 End: 08-22-2023 ambulatory MD Leydi Aceves Work Phone: [facility] Work Phone: Start: 08-22-2023 End: 08-22-2023 Patient encounter procedure MD Leydi Aceves Work Phone: [facility] Work Phone: Start: 08-16-2023 Refill Delmy newton MD Work Phone: Rheumatology Comment on above: Refill Request Start: 08-03-2023 Registered Recurring MD Leydi Aceves Work Phone: [facility] Start: 08-03-2023 ambulatory Nicola Castellon acility:[facility] Start: 07-06-2023 ambulatory Delmy newton MD Work Phone: Rheumatology Start: 07-06-2023 Patient encounter procedure Delmy Boyle MD Work Phone: Rheumatology Comment on above: Flare up Start: 07-05-2023 Refill Delmy newton MD Work Phone: Rheumatology Comment on above: Refill Request Start: 06-24-2023 End: 06-24-2023 ambulatory LEYDI ACEVES Facility:[facility] Start: 06-24-2023 End: 06-24-2023 Patient encounter procedure Delmy Boyle MD Work Phone: Rheumatology Comment on above: Chronic tophaceous g out (Primary Dx); Encounter for long-term (current) use of medications; Stage 3 chronic kidney disease, unspecified whether stage 3a or 3b CKD (HCC); Idiopathic chronic gout of multiple sites with tophus Start: 06-21-2023 End: 06-21-2023 ambulatory DELMY BOYLE Facility:[facility] Start: 06-10-2023 End: 06-10-2023 ambulatory RUGEN M KETAN Not Available Start: 05-18-2023 End: 05-18-2023 ambulatory RUGEN M KETAN Not Available Start: 05-09-2023 End: 05-12-2023 ambulatory Nicola Leyva Facility:[facility] Start: 05-03-2023 End: 05-03-2023 ambulatory RUGEN M KETAN Not Available Start: 04-05-2023 Refill Leydi Barlowa Keena [facility] Work Phone: [facility] Start: 03-08-2023 End: 03-08-2023 ambulatory DELMY BOYLE Facility:[facility] Start: 03-04-2023 End: 03-04-2023 ambulatory DELMY BOYLE Facility:[facility] Start: 02-24-2023 End: 02-24-2023 Emergency department patient visit Ladi Huber Facility:[facility] Start: 02-19-2023 End: 02-20-2023 ambulatory KAYCE Wilson [facility] Start: 01-12-2023 End: 01-12-2023 ambulatory MIRI REES Not Available Start: 11-13-2022 ambulatory Delmy newton MD Work Phone: Rheumatology Comment on above: Prednisone Start: 11-13-2022 E-mail encounter ranulfo m caregiver Delmy Boyle MD Work Phone: [facility] Start: 11-13-2022 Telephone encounter Delmy luna MD Work Phone: [facility] Comment on above: Patient Request Start: 08-14-2022 End: 08-14-2022 ambulatory DELMY BOYLE Facility:[facility] Start: 08-12-2022 End: 08-13-2022 ambulatory DELMY BOYLE Facility:[facility] Start: 07-24-2022 End: 07-24-2022 ambulatory MATIAS SALAS [...] unspecified whether stage 3a or 3b CKD ([facility]) Start: 12-19-2021 Refill Delmy newton MD Work Phone: Rheumatology Comment on above: Refill Request Start: 12-07-2021 End: 12-10-2021 Evaluation and management of inpatient MD Leydi Aceves Work Phone: [facility] Start: 12-06-2021 End: 12-07-[address] LEYDI ACEVES Facility:[facility] Start: 10-19-2021 End: 10-19-2021 ambulatory ZHAO MAURER . Facility:[facility] Start: 09-27-2021 End: 09-27-2021 Emergency department patient visit MD Leydi Aceves Work Phone: [facility] Start: 09-27-2021 End: 09-27-2021 ambulatory ZHAO MAURER . 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 Start: 07-12-2018 End: 07-13-2018 Emergency department patient visit LEYDI ACEVES [facility] Procedures Date Procedure Procedure Detail Performing Clinician Start: 08-19-2020 Adult depression screening assessment Delmy Boyle MD Work Phone: Start: 07-12-2018 Ct lumbar spine w/o contrast material LEYDI ACEVES Start: 07-12-2018 Ct thoracic spine w/ o contrast material LEYDI ACEVES Plan of Treatment Date Care Activity Detail Author Start: 06-01-2026 Urine microalbumin profile [facility] Start: 03-04-2024 Creatinine measurement Serum Creatinine [facility] Start: 01-04-2024 End: 01-04-2024 Patient encounter procedure 01/04/2024 8:20 AM EST Office Visit Rheumatology [address] [place] [address] [place] [address] [place] [address] FU 6-7 MON WITH MD Rheumatology Comment on above: FU 6-7 MON WITH MD Start: 10-31-2023 Influenza vaccination Influenza Vaccine (Season Ended) [facility] Start: 09-24-2023 End: 09-24-2023 Patient encounter procedure 09/24/2023 8:00 AM EDT Office Visit Rheumatology [address] [place] [address] Kelly Martell APRN.SAFETY ADVISOR [address] [facility] [place] [address] FU 3-4 MON WITH STEFANIA Rheumatology Comment on above: FU 3-4 MON WITH STEFANIA Start: 08-29-2023 Influenza vaccination Influenza Vaccine (#1) [facility] Comment on above: Postponed from 10/30/2022 (Other Patient Reasons) Start: 08-13-2023 Serum Creatinine Serum Creatinine [facility] Start: 03-01-2023 Behavioral Health Screening Behavioral Health Screening [facility] Start: 01-01-2023 BP CONTROLLED (<130/80) BP CONTROLLED (<130/80) [facility] Start: 10-30-2022 Covid-19 Vaccine ( season) Covid-19 Vaccine ( season) [facility] Start: 10-30-2022 Influenza vaccination [facility] Start: 07-13-2022 End: 09-12-2022 Alanine aminotransferase [Enzymatic activity/volume] in Serum or Plasma ALT/SGPT Lab Routine Idiopathic chronic gout of multiple sites with [facility] Encounter for long-term (current) use of medications Expected: 07/13/2022 (Approximate), Expires: 09/12/2022 [facility] Work Phone: Comment on above: Expected: 07/13/2022 (Approximate), Expi res: 09/12/2022 Start: 07-13-2022 End: 09-12-2022 Albumin [Mass/volume] in Serum or Plasma ALBUMIN BLD Lab 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 Encounter for long-term (current) use of medications Expected: 07/13/2022 (Approximate), Expires: 09/12/2022 [facility] Work Phone: Comment on above: Expected: 07/13/2022 (Approximate), Expi res: 09/12/2022 Start: 07-13-2022 End: 09-12-2022 Aspartate aminotransferase [Enzymatic activity/volume] in Serum or Plasma AST/SGOT BLD Lab 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 Encounter for long-term (current) use of medications Expected: 07/13/2022 (Approximate), Expires: 09/12/2022 [facility] Work Phone: Comment on above: Expected: 07/13/2022 (Approximate), Expi res: 09/12/2022 Start: 07-13-2022 End: 09-12-2022 C reactive protein [Mass/volume] in Serum or Plasma C-REACTIVE PROTEIN (CRP) Lab 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 Encounter for long-term (current) use of medications Expected: 07/13/2022 (Approximate), Expires: 09/12/2022 [facility] Work Phone: Comment on above: Expected: 07/13/2022 (Approximate), Expi res: 09/12/2022 Start: 07-13-2022 End: 09-12-2022 CBC W Auto Differential panel - Blood CBC + DIFF Lab 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 Encounter for long-term (current) use of medications Expected: 07/13/2022 (Approximate), Expires: 09/12/2022 [facility] Work Phone: Comment on above: Expected: 07/13/2022 (Approximate), Expi res: 09/12/2022 Start: 07-13-2022 End: 09-12-2022 CREATININE BLD CREATININE BLD Lab 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 Encounter for long-term (current) use of medications Expected: 07/13/2022 (Approximate), Expires: 09/12/2022 [facility] Work Phone: Comment on above: Expected: 07/13/2022 (Approximate), Expi res: 09/12/2022 Start: 07-13-2022 End: 09-12-2022 Erythrocyte sedimentation rate SED RATE WESTERGREN Lab 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 Encounter for long-term (current) use of medications Expected: 07/13/2022 (Approximate), Expires: 09/12/2022 [facility] Work Phone: Comment on above: Expected: 07/13/2022 (Approximate), Expi res: 09/12/2022 Start: 07-13-2022 End: 09-12-2022 Urate [Mass/volume] in Serum or Plasma URIC ACID BLOOD Lab 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 Encounter for long-term (current) use of medications Expected: 07/13/2022 (Approximate), Expires: 09/12/2022 [facility] Work Phone: Comment on above: Expected: 07/13/2022 (Approximate), Expi res: 09/12/2022 Start: 04-23-2022 SERUM CREATININE SERUM CREATININE [facility] Start: 03-01-2022 DEPRESSION ASSESSMENT DEPRESSION ASSESSMENT [facility] Start: 12-10-2021 [facility] Start: 12-07-2021 Hospital admission [facility] Start: 12-07-2021 Referral to Trim Carpenter [facility] Start: 10-30-2021 Influenza vaccination [facility] Start: 08-19-2021 Adult depression screening assessment DEPRESSION SCREENING [facility] Start: 03-01-2021 DEPRESSION ASSESSMENT DEPRESSION ASSESSMENT [facility] Start: 2009 Hepatitis B Vaccine (1 of 3 - 19+ 3-dose series) Hepatitis B Vaccine (1 of 3 - 19+ 3-dose series) [facility] Start: 02-26-2008 ANNUAL PCP TEAM CHRONIC DISEASE VISIT ANNUAL PCP TEAM CHRONIC DISEASE VISIT [facility] Start: 02-26-2008 BP CONTROLLED (<130/80) BP CONTROLLED (<130/80) [facility] Start: 02-26-2008 HIV SCREENING HIV SCREENING [facility] Start: 02-26-2008 HIV screening HIV Screening [facility] Start: 1995 COVID-19 VACCINE (#1) COVID-19 VACCINE (#1) [facility] Start: 1990 COVID-19 VACCINE (#1) COVID-19 VACCINE (#1) [facility] Start: 1990 HEPATITIS B (1 of 3 - 3-dose series) HEPATITIS B (1 of 3 - 3-dose series) [facility] Start: 1990 Hepatitis B Vaccine (1 of 3 - 3-dose series) Hepatitis B Vaccine (1 of 3 - 3-dose series) [facility] End: 06-23-2024 Alanine aminotransferase [Enzymatic activity/volume] in Serum or Plasma ALANINE AMINOTRANSFERASE / SGPT Lab Routine Chronic tophaceous gout Encounter for long-term (current) use of medications Every 3 months for 5 Occurrences starting 06/24/2023 until 06/23/2024 [facility] Comment on above: Every 3 months for 5 Occurrences startin g 06/24/2023 until 06/23/2024 End: 06-23-2024 Albumin [Mass/volume] in Serum or Plasma ALBUMIN Lab Routine Chronic tophaceous gout Encounter for long-term (current) use of medications Every 3 months for 5 Occurrences starting 06/24/2023 until 06/23/2024 [facility] Comment on above: Every 3 months for 5 Occurrences startin g 06/24/2023 until 06/23/2024 End: 06-23-2024 Aspartate aminotransferase [Enzymatic activity/volume] in Serum or Plasma ASPARTATE AMINOTRANSFERASE/SGOT Lab Routine Chronic tophaceous gout Encounter for long-term (current) use of medications Every 3 months for 5 Occurrences starting 06/24/2023 until 06/23/2024 [facility] Work Phone: Comment on above: Every 3 months for 5 Occurrences startin g 06/24/2023 until 06/23/2024 End: 06-23-2024 C reactive protein [Mass/volume] in Serum or Plasma C-REACTIVE PROTEIN Lab Routine Chronic tophaceous gout Encounter for long-term (current) use of medications Every 3 months for 5 Occurrences starting 06/24/2023 until 06/23/2024 [facility] Comment on above: Every 3 months for 5 Occurrences startin g 06/24/2023 until 06/23/2024 End: 06-23-2024 CBC W Auto Differential panel - Blood COMPLETE BLOOD COUNT AND DIFFERENTIAL Lab Routine Chronic tophaceous gout Encounter for long-term (current) use of medications Every 3 months for 5 Occurrences starting 06/24/2023 until 06/23/2024 [facility] Comment on above: Every 3 months for 5 Occurrences startin g 06/24/2023 until 06/23/2024 End: 06-23-2024 CREATININE BLD CREATININE BLD Lab Routine Chronic tophaceous gout Encounter for long-term (current) use of medications Every 3 months for 5 Occurrences starting 06/24/2023 until 06/23/2024 [facility] Comment on above: Every 3 months for 5 Occurrences startin g 06/24/2023 until 06/23/2024 End: 06-23-2024 Erythrocyte sedimentation rate SEDIMENTATION RATE, WESTERGREN Lab Routine Chronic tophaceous gout Encounter for long-term (current) use of medications Every 3 months for 5 Occurrences starting 06/24/2023 until 06/23/2024 [facility] Comment on above: Every 3 months for 5 Occurrences startin g 06/24/2023 until 06/23/2024 Patient Education [facility] Work Phone: Patient referral [facility] Work Phone: End: 06-23-2024 Urate [Mass/volume] in Serum or Plasma URIC ACID Lab Routine Chronic tophaceous gout Encounter for long-term (current) use of medications Every 6 months for 3 Occurrences starting 06/24/2023 until 06/23/2024 [facility] Comment on above: Every 6 months for 3 Occurrences startin g 06/24/2023 until 06/23/2024 [facility] Immunizations Immunization Date Immunization Notes Care Provider [facility] 10-13-2018 influenza virus vacc ine, unspecified formulation Delmy Boyle MD Work Phone: [facility] 10-13-2002 measles, mumps and rubella virus vaccine Leydi Aceves MD Work Phone: [facility] 10-20-1993 diphtheria, tetanus toxoids and acellular pertussis vaccine, unspecified formulation Leydi Aceves MD Work Phone: [facility] 10-20-1993 haemophilus influenz ae type b vaccine, conjugate unspecified formulation Leydi Aceves MD Work Phone: [facility] 10-20-1993 trivalent poliovirus vaccine, live, oral Leydi Aceves MD Work Phone: [facility] 07-26-1991 diphtheria, tetanus toxoids and pertussis vaccine Leydi Aceves MD Work Phone: [facility] 07-26-1991 haemophilus influenz ae type b vaccine, conjugate unspecified formulation Leydi Aceves MD Work Phone: [facility] 07-26-1991 measles, mumps and rubella virus vaccine Leydi Aceves MD Work Phone: [facility] 02-03-1991 diphtheria, tetanus toxoids and pertussis vaccine Leydi Aceves MD Work Phone: [facility] 02-03-1991 haemophilus influenz ae type b vaccine, conjugate unspecified formulation Leydi Aceves MD Work Phone: [facility] 02-03-1991 trivalent poliovirus vaccine, live, oral Leydi Aceves MD Work Phone: [facility] 1990 diphtheria, tetanus toxoids and pertussis vaccine Leydi Aceves MD Work Phone: [facility] 1990 haemophilus influenz ae type b vaccine, conjugate unspecified formulation Leydi Aceves MD Work Phone: [facility] 1990 trivalent poliovirus vaccine, live, oral Leydi Aceves MD Work Phone: [facility] Payers Date Payer Category Payer Self-pay 2021 Medicaid [employer] [id number] 2021-Present [phone] [address] [place] [address] Medicaid [id number] 2021 Medicaid [id number] 2018 Unknown [id number] 1990 Unknown [id number] 1990 Unknown [id number] [id number] 1990 Unknown [id number] [id number] 1990 Unknown [id number] [id number] 1990 Unknown [id number] [id number] 1990 Unknown [id number] [id number] 1990 Unknown [id number] [id number] 1990 Unknown [id number] [id number] 1990 Unknown [id number] [id number] 1990 Unknown [id number] [id number] 1990 Unknown [id number] [id number] 1990 Unknown [id number] [id number] 1990 Unknown [id number] 2.16.840.1.486237.3.579.2.1259 1990 Unknown [id number] 2.16.840.1.188164.3.579.2.1259 1990 Unknown [id number] [id number] 1990 Unknown [id number] 1959 Medicaid [id number] 1959 Unknown [id number] Unknown [facility] [id number] Unknown [id number] Unknown [id number] Social History Date Type Detail Facility Start: 05-04-2017 End: 05-09-2023 Tobacco smoking status [facility] Never smoked tobacco [facility] Start: 05-04-2017 End: 01-01-2022 Tobacco use and exposure User of smokeless tobacco [facility] History of tobacco use Chews Tobacco [facility] Start: 1990 Sex Assigned At Male [facility] Start: 12-08-2021 Tobacco smoking status ARIS Smoker (finding) [facility] Start: 12-22-2021 End: 01-01-2022 Exposure to SARS-CoV-2 (event) Not sure [facility] Start: 08-13-2022 End: 08-14-2022 History of Social function [facility] Start: 08-13-2022 End: 08-14-2022 Tobacco use panel [facility] Adult Depression Screening Assessment 4 [facility] Start: 11-09-2019 Gender identity Identifies as male gender (finding) [facility] Start: 11-09-2019 Sexual orientation Heterosexual (finding) [facility] Start: 09-14-2022 Tobacco use and exposure Smokeless tobacco non-user [facility] Start: 02-16-2023 Alcohol intake Current drinker of alcohol (finding) [facility] Within the last year , have you been afraid of your partner or ex-partner? No [facility] Do you belong to any clubs or organizations such as mandaeism groups, unions, fraternal or athletic groups, or [...] [OSQ] Very much [facility] (I/We) worried sunshine er (my/our) food would run out before (I/we) got money to buy more. Never true [facility] Start: 12-16-2022 Alcohol Comment Caffeine intake: 1-2 cups per day soda/pop [facility] Goals Date Patient Goal Desired Activity /State Functional Status Date Assessment Result Facility 12-10-2021 Functional status Patient at Baseline [facility] Work Phone: 12-07-2021 Functional status Disability Sta s Patient at Baseline [facility] Work Phone: Mental Status Date Assessment Result Facility 12-10-2021 Cognitive function Cognitive Sta [facility] Patient at Baseline [facility] Work Phone: Clinical Notes 04-25-2017 to 08-18-2023 Telephone Encounter - Mary Perla LPN - 08/18/2023 8:50 AM EDTTelephone Encounter - Mary Perla LPN - 08/18/2023 8:50 AM EDTTelephone Encounter - Haylee Mariee - 07/07/2023 10:39 AM EDT Note Date & Type Note Facility 08-18-2023 Telephone encounter Note Dago message sent to patient informing him he will have to follow up with Dr. Aceves for tramadol or oxycodone. per provider [facility] 08-18-2023 Miscellaneous Notes Mychart message sent to patient informing him he will have to follow up with Dr. Aceves for tramadol or oxycodone. per provider Rheum pool: Please see 07/05/2023 refill encounter message regarding requests for Tramadol (copied below) Tramadol Rx was given only for the short term. [place] reviewed and it appears that he is getting refills of oxycodone and Tramadol from Dr Leydi Aceves. He will need to contact Dr. Aceves. Please inform patient of above. As for gout flare- if he needs prednisone, please let me know and a prescription for prednisone can be forwarded to his pharmacy. Thx Patient requesting Tramadol refill due to flare. Updated Care Everywhere. Please see 08/05/2023 encounter. Please advise. documented in this encounter [facility] 08-18-2023 Telephone encounter Note Rheum pool: Please see 07/05/2023 refill encounter message regarding requests for Tramadol (copied below) Tramadol Rx was given only for the short term. [place] reviewed and it appears that he is getting refills of oxycodone and Tramadol from Dr Leydi Aceves. He will need to contact Dr. Aceves. Please inform patient of above. As for gout flare- if he needs prednisone, please let me know and a prescription for prednisone can be forwarded to his pharmacy. Thx [facility] 08-16-2023 Telephone encounter Note Patient requesting Tramadol refill due to flare. Updated Care Everywhere. Please see 08/05/2023 encounter. Please advise. [facility] 07-08-2023 Telephone encounter Note Duplicate request - see other encounter. [facility] 07-08-2023 Miscellaneous Notes Duplicate request - see other encounter. documented in this encounter [facility] 07-08-2023 Telephone encounter Note Duplicate request - see other encounter. [facility] 07-08-2023 Miscellaneous Notes Duplicate request - see other encounter. documented in this encounter [facility] 07-07-2023 Telephone encounter Note Tramadol Rx was given only for the short term. [place] reviewed and it appears that he is getting refills of oxycodone and Tramadol from Dr Leydi Aceves. He will need to contact Dr. Aceves. As for gout flare- if he needs prednisone, please call in 6 day prednisone taper (order filed). Thx Patient's request for medication is as follows Requested Prescriptions Signed Prescriptions Disp Refills predniSONE (DELTASONE) 5 mg tablet 21 tablet 0 Sig: Take 6 tab in AM on day 1 then reduce dose by 1 tablet every day until off Authorizing Provider: DELMY BOYLE Refused Prescriptions Disp Refills traMADol (ULTRAM) 50 mg tablet 10 tablet 0 Sig: Take 1 tablet by mouth two times a day as needed for pain for up to 7 days. FOR SHORT TERM USE ONLY. Refused By: CAREN VOGT Reason for Refusal: A Refill not appropriate Order entered - if patient requires prednisone for gout flare, please phone pharmacy and notify patient. Delmy Boyle MD [facility] 07-07-2023 Miscellaneous Notes Tramadol Rx was given only for the short term. [place] reviewed and it appears that he is getting refills of oxycodone and Tramadol from Dr Ledyi Aceves. He will need to contact Dr. Aceves. As for gout flare- if he needs prednisone, please call in 6 day prednisone taper (order filed). Thx Patient's request for medication is as follows Requested Prescriptions Signed Prescriptions Disp Refills predniSONE (DELTASONE) 5 mg tablet 21 tablet 0 Sig: Take 6 tab in AM on day 1 then reduce dose by 1 tablet every day until off Authorizing Provider: DELMY BOYLE Refused Prescriptions Disp Refills traMADol (ULTRAM) 50 mg tablet 10 tablet 0 Sig: Take 1 tablet by mouth two times a day as needed for pain for up to 7 days. FOR SHORT TERM USE ONLY. Refused By: CAREN VOGT Reason for Refusal: A Refill not appropriate Order entered - if patient requires prednisone for gout flare, please phone pharmacy and notify patient. Delmy Boyle MD Called and spoke to patient and let him know this was already refilled and it was a one time refill per Dr. Boyle's notes, Spoke to Coworker Caren Guillory LPN and was told to send to Dr. Boyle for review. Let patient know that I would sent message to doctor. Routed message to Dr. Byole Patient called to check on refill status. Stated he has upcoming appointments. Also had a flare up this past weekend. Please call patient to advise. One time order. Patient needs to call office for appointment if needed. documented in this encounter [facility] 07-07-2023 Telephone encounter Note Called and spoke to patient and let him know this was already refilled and it was a one time refill per Dr. Boyle's notes, Spoke to Coworker Caren Guillory LPN and was told to send to Dr. Boyle for review. Let patient know that I would sent message to doctor. Routed message to Dr. Boyle [facility] 07-07-2023 Telephone encounter Note Patient called to check on refill status. Stated he has upcoming appointments. Also had a flare up this past weekend. Please call patient to advise. [facility] 07-05-2023 Telephone encounter Note One time order. Patient needs to call office for appointment if needed. [facility] 06-24-2023 Note HNO ID: [id number] Author: DELMY BOYLE MD Service: ? Author [...] arthritic flares once every [address] Jaime in [place] who did diagnostic knee aspiration which according to patient was positive for uric acid crystals. Treated with steroids and continued allopurinol. He has not seen Dr. Jaime since 2014. In 2014, he was hospitalized in [place] for acute polyarthritis. Saw fruit pitter while in hospital who told him that he possibly had RA. Discharged on steroids. His PCP switched him from allopurinol to Uloric Jan 2017. He also takes colchicine prn. No reduction in frequency or severity of his joint flares with Uloric. In 2017, he has been hospitalized 7-8 times for acute joint flares. Each time he is treated with steroids. Hospitalized at [facility] Apr 2017 for acute flare of [...] shoulder surgery by Dr. Tc Coffey at [facility]. No post op complications. Was in [...] pain, Eye r (more content not included)... [facility] 06-24-2023 History of Present illness Narrative [...] arthritic flares once every [address] Jaime in [place] who did diagnostic knee aspiration which according to patient was positive for uric acid crystals. Treated with steroids and continued allopurinol. He has not seen Dr. Jaime since 2014. In 2014, he was hospitalized in [place] for acute polyarthritis. Saw fruit pitter while in hospital who told him that he possibly had RA. Discharged on steroids. His PCP switched him from allopurinol to Uloric Jan 2017. He also takes colchicine prn. No reduction in frequency or severity of his joint flares with Uloric. In 2016, he has been hospitalized 7-8 times for acute joint flares. Each time he is treated with steroids. Hospitalized at [facility] Apr 2017 for acute flare of [...] shoulder surgery by Dr. Tc Coffey at [facility]. No post op complications. 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 documented in this encounter [facility] 04-05-2023 Telephone encounter Note Nick called leaving a VM stating he hurt his back over the weekend and would like to know if he can get a muscle relaxer for it or if he will need an appointment for it? [facility] 04-05-2023 Miscellaneous Notes Nick called leaving a VM stating he hurt his back over the weekend and would like to know if he can get a muscle relaxer for it or if he will need an appointment for it? documented in this encounter [facility] 03-08-2023 Note HNO ID: [id number] Author: DELMY BOYLE MD Service: ? Author [...] arthritic flares once every [address] Jaime in [place] who did diagnostic knee aspiration which according to patient was positive for uric acid crystals. Treated with steroids and continued allopurinol. He has not seen Dr. Jaime since 2014. In 2014, he was hospitalized in [place] for acute polyarthritis. Saw fruit pitter while in hospital who told him that he possibly had RA. Discharged on steroids. His PCP switched him from allopurinol to Uloric Jan 2017. He also takes colchicine prn. No reduction in frequency or severity of his joint flares with Uloric. In 2017, he has been hospitalized 7-8 times for acute joint flares. Each time he is treated with steroids. Hospitalized at [facility] Apr 2017 for acute flare of [...] shoulder surgery by Dr. Tc Coffey at [facility]. No post op complications. Currently on [...] or wrists but (more content not included)... [facility] 11-13-2022 Miscellaneous Notes The following approved [...] refill of a tapered prednisone sent to [facility] in [place], . Please advise. Patient has been identified by name and birthdate. Duration of symptoms: N/A Person calling: self Call patient at: at home [phone] (home) [phone] (cell) Was an appointment scheduled: No Closing statement: Results or non-symptom based questions: Thank you for calling [facility], your call will be returned within the next business day. Madonna Nolasco Pss documented in this encounter [facility] 08-14-2022 Note HNO ID: [id number] Author: Delmy Boyle MD Service: ? 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 Polyarthritis with several nodules mainly [...] arthritic flares once every [address] Jaime in [place] who did diagnostic knee aspiration which according to patient was positive for uric acid crystals. Treated with steroids and continued allopurinol. He has not seen Dr. Jaime since 2014. In 2014, he was hospitalized in [place] for acute polyarthritis. Saw fruit pitter while in hospital who told him that he possibly had RA. Discharged on steroids. His PCP switched him from allopurinol to Uloric Jan 2017. He also takes colchicine prn. No reduction in frequency or severity of his joint flares with Uloric. In 2017, he has been hospitalized 7-8 times for acute joint flares. Each time he is treated with steroids. Hospitalized at [facility] Apr 2017 for acute flare of [...] shoulder surgery by Dr. Tc Coffey at [facility]. No post op complications. Currently on PT - still working on shoulder ROM. 4. GENERAL HEALTH MAINTENANCE -continue follow up on his CKD with nephrology -he will follow up with his PCP for his general health issues RTC in 7 mon, sooner if needed INTERVAL HISTORY -at [facility], he was advised to increase allopurinol [...] DAY allopurinol (ZYLO (more content not included)... [facility] 06-29-2022 Miscellaneous Notes Called and spoke [...] Days Visit Type Date Time Department [facility] MEDICAL 08/14/2022 11:40 AM [facility] RE[facility] CBC: None on file in the [...] use of medications documented in this encounter [facility] 04-01-2022 Miscellaneous Notes The following approved [...] Visit Type Date Time Department [facility] MEDICAL 08/14/2022 11:40 AM [facility] RE[facility] CBC: None on file in the [...] long-term (current) use of medications SED RATE AMALIAREN [SQWSR] 07/13/22 09/12/22 01/01/22 Auth. provider: Delmy Boyle MD Assoc. diagnoses: Idiopathic chronic gout of multiple sites with tophus, Encounter for long-term (current) use of medications URIC ACID BLOOD [SQURIC] 07/13/22 09/12/22 01/01/22 Auth. provider: Delmy Boyle MD Assoc. diagnoses: Idiopathic chronic gout of multiple sites with tophus, Encounter for long-term (current) use of medications documented in this encounter [facility] 01-01-2022 Instructions Delmy Boyle MD - [...] at your visit. documented in this encounter [facility] 01-01-2022 History of Present illness Narrative [...] arthritic flares once every [address] Jaime in [place] who did diagnostic knee aspiration which according to patient was positive for uric acid crystals. Treated with steroids and continued allopurinol. He has not seen Dr. Jaime since 2014. In 2014, he was hospitalized in [place] for acute polyarthritis. Saw fruit pitter while in hospital who told him that he possibly had RA. Discharged on steroids. His PCP switched him from allopurinol to Uloric Jan 2017. He also takes colchicine prn. No reduction in frequency or severity of his joint flares with Uloric. In 2017, he has been hospitalized 7-8 times for acute joint flares. Each time he is treated with steroids. Hospitalized at [facility] Apr 2017 for acute flare of [...] shoulder surgery by Dr. Tc Coffey at [facility]. No post op complications. 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 in this encounter [facility] 12-22-2021 Miscellaneous Notes The following approved [...] Idiopathic chronic gout of multiple sites with [facility] Rheumatology Delmy Boyle MD Upcoming Rheumatology Appointments - Next 365 Days Visit Type Date Time Department [facility] MEDICAL EXT 01/01/2022 11:20 AM [facility] RE[facility] CBC: None on file in the [...] Lab Orders None documented in this encounter [facility] 12-10-2021 Discharge summary Note Date/Time December 10, 2021 10:19am [facility] [address] [place] [address] Discharge Summary Signed Patient: Nick Wray MR#: [id number] : 1990 Acct:[id number] Age/Sex: 31 / M Adm Date: 2 Loc: 1S Room: 3T9522-[address]: Adam Young MD Copies to: [...] called EMS and he was taken to [place] [facility] and subsequently brought here.? He says that [...] No activity restrictions. 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 (insert date/time here) Intake: (Insert date/time here) Please bring a copy of your photo ID, insurance card, and proof of household income.? Psychiatry: (Insert date/time here) Group: (Insert date/time here ) ) Documented By: Nicola Leyva MD 2 [id number] Signed By: <Electronically signed by Nicola Leyva MD> 12/10/21 6842 [facility] Work Phone: 1(875) 352-804210-11-2022 Progress note Author Nicola pelayo [facility] December 09, 2021 10:42am Note Date/Time December 09, 2021 8 :48am [facility] [address] [place] [address] Psychiatry Progress Note Signed Patient: Nick Wray MR#: [id number] : 1990 Acct:[id number] Age/Sex: 31 / M Adm Date: 2 Loc: 1S Room: [address] [place] [address] Type : ADM IN Attending Dr: Adam Young MD Copies to: ~ Date of Service: 12/09/2021 Subjective Subjective Narrative: Mr. Wray is a 31 year old male for depression and suicidal ideation. Saybettie is doing better today. He is out [...] signed by Nicola Leyva MD> 12/09/21 1042 [facility] Work Phone: 1(335) 613-152010-10-2022 History and physical note Author Nicola pelayo [facility] December 08, 2021 1:32pm Note Date/Time December 08, 2021 1 2:43pm [facility] [address] [place], [place] [id number] Psychiatry H&P Signed Patient: Nick Wray MR#: [id number] : 1990 Acct:[id number] Age/Sex: 31 / M Adm Date: 2 Loc: 1S Room: [address] [place] [address] Type: ADM IN Attending Dr: Adam Young [...] called EMS and he was taken to [place] [facility] and subsequently brought here. He says [...] pack. He denies feeling worthless, hopeless, anhedonia. atient was personally seen by me on the [...] Rates his depression today 10/10 and anxiety 11/08. 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 Author Type: [...] BY: RT Kanchan(R) November 29, 2020 10:24 [facility] [id number] NoteHNO ID: [id number] Author: Felicitas Perez RDMS Service: Radiology Author Type: Implementation Technician Type: Progress Notes Filed: 08/19/2020 12:51 PM [...] Not applicable SIGNED BY: Felicitas Perez RDMS RVT August 19, 2020 12:51 [id number] NoteHNO ID: [id number] Author: Britany Mccann (Rt) Service: Radiology Author Type: Desulfurizer Operator Type: Progress Notes Filed: 04/02/2020 9:49 AM [...] BY: RT Ramy April 02, 2020 9:48 AMLds [id number] History of Past illness Narrative* Problem Noted Date Resolved Date Rheumatoid arthritis flare 04/25/201705/10 documented as of this encounter (statuses as of 08/05/2021) [place] [address] History of Past illness Narrative* Problem Noted Date Resolved Date Rheumatoid arthritis flare 04/25/201705/10 documented as of this encounter (statuses as of 12/22/2021) [place] [address] History of Past illness Narrative* Problem Noted Date Resolved Date Rheumatoid arthritis flare 04/25/201705/10 documented as of this encounter (statuses as of 01/01/2022) [place] [address] History of Past illness Narrative* Problem Noted Date Resolved Date Rheumatoid arthritis flare 04/25/201705/10 documented as of this encounter (statuses as of 04/02/2022) [place] [address] History of Past illness Narrative* Problem Noted Date Resolved Date Rheumatoid arthritis flare 04/25/201705/10 documented as of this encounter (statuses as of 06/30/2022) [place] [address] History of Past illness Narrative* Problem Noted Date Diagnosed Date Resolved Date Rheumatoid arthritis flare 04/25/2017 0 05/10/2017 documented as of this encounter (statuses as of 11/14/2022) [facility] History of Past illness Narrative* Problem Noted Date Diagnosed Date Resolved Date Rheumatoid arthritis flare 04/25/2017 0 05/10/2017 documented as of this encounter (statuses as of 11/14/2022) [facility] Diagnosis 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) documented in this encounter [facility] noteNo assessment information availableLicking [facility]tr Work Phone: evaluation note* Diagnosis Onset Date Resolution Status Major depressive disorder, recurrent, moderate acute [facility] Work Phone: evaluation note* Diagnosis 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) documented [facility] this encounter [facility]* Diagnosis Idiopathic chronic gout of multiple sites with tophus- Primary Chronic gouty arthropathy with tophus (tophi) Encounter for long-term (current) use of medications Encounter for long-term (current) use of other medications Stage 3 chronic kidney disease, unspecified whether stage 3a or 3b CKD (HCC) documented [facility] encounter [facility]* Diagnosis 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) documented [facility] encounter [facility]* Diagnosis 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) [facility] Diagnosis Other chronic pain- Primary [facility] Diagnosis Chronic tophaceous gout- Primary Chronic gouty arthropathy with tophus (tophi) Encounter for long-term (current) use of medications Encounter for long-term (current) use of other medications Stage 3 chronic kidney disease, unspecified whether stage 3a or 3b CKD (HCC) 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) [facility] 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) [facility] Diagnosis 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) [facility] Diagnosis Onset Date Resolution Status Acute pansinusitis acute [facility] Work Phone: Hospital Discharge instructions Additional Instructions Rest Apply ice to affected area Avoid electronics Follow-up with neurology on Wednesday Tylenol Motrin if needed for discomfort Return here if you develop any numbness, tingling, unilateral weakness, unsteady gait, confusion or any other concernsLicking [facility]tr Work Phone: Hospital Discharge instructions Additional Instructions Regular diet. 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 Advance Directive(s) 04/25/2017 12:32 PM Advance Directive Response Recorded Date/ Time Advance Directives No September 27 7:04pm Chief Complaint and Reason for Visit Chief Complaint [facility]blurry [facility]/head swell Chief Complaint sent by [facility]/blurry vision/head swell Major Depression Reason for Visit Major depressive dis order, recurrent, moderate Chief Complaint BH eye irritation, runny nose, sore throat Reason for Visit Acute pansinusitis Additional Source Comments (unrecognized sect ion and content) No Status Records FoundNo Status Records FoundNo Status Records FoundNo Status Records FoundNo Status Records FoundNo Status Records FoundNo Status Records FoundNo Status Records FoundNo Status Records Found INFORMATION SOURCE (unrecogn ized section and content) DATE CREATED AUTHOR 07/23/2018 [facility] DATE CREATED AUTHOR AUTHOR'S ORGANIZ ATION 11/30/2020 [facility] DATE CREATED AUTHOR AUTHOR'S ORGANIZ ATION 11/11/2021 [facility] Specialist DATE CREATED AUTHOR AUTHOR'S ORGANIZ ATION 08/07/2022 [facility] DATE CREATED AUTHOR AUTHOR'S ORGANIZ ATION 2023 [facility] DATE CREATED AUTHOR AUTHOR'S ORGANIZ ATION 02/26/2023 [facility] DATE CREATED AUTHOR AUTHOR'S ORGANIZ ATION 06/12/2023 [facility] dical [facility] DATE CREATED AUTHOR AUTHOR'S ORGANIZ ATION 06/26/2023 [facility] DATE CREATED AUTHOR AUTHOR'S ORGANIZ ATION 08/04/2023 [facility] Source Comments (unrecognize d section and content) In the event this informatio n is protected by the Federal Confidentiality of Alcohol and Drug Abuse Patient Records regulations: The Federal rules restrict any use of the information to criminally investigate or prosecute any alcohol or drug abuse patient.[facility] the event this information is protected by the Federal Confidentiality of Alcohol and Drug Abuse Patient Records regulations: The Federal rules restrict any use of the information to criminally investigate or prosecute any alcohol or drug abuse patient.[facility] HospitalIn the event this information is protected by the Federal Confidentiality of Alcohol and Drug Abuse Patient Records regulations: The Federal rules restrict any use of the information to criminally investigate or prosecute any alcohol or drug abuse patient.[facility] HospitalIn the event this information is protected by the Federal Confidentiality of Alcohol and Drug Abuse Patient Records regulations: The Federal rules restrict any use of the information to criminally investigate or prosecute any alcohol or drug abuse patient.[facility] HospitalIn the event this information is protected by the Federal Confidentiality of Alcohol and Drug Abuse Patient Records regulations: The Federal rules restrict any use of the information to criminally investigate or prosecute any alcohol or drug abuse patient.[facility] HospitalIn the event this information is protected by the Federal Confidentiality of Alcohol and Drug Abuse Patient Records regulations: The Federal rules restrict any use of the information to criminally investigate or prosecute any alcohol or drug abuse patient.[facility] HospitalIn the event this information is protected by the Federal Confidentiality of Alcohol and Drug Abuse Patient Records regulations: The Federal rules restrict any use of the information to criminally investigate or prosecute any alcohol or drug abuse patient.[facility] HospitalIn the event this information is protected by the Federal Confidentiality of Alcohol and Drug Abuse Patient Records regulations: The Federal rules restrict any use of the information to criminally investigate or prosecute any alcohol or drug abuse patient.[facility] HospitalIn the event this information is protected by the Federal Confidentiality of Alcohol and Drug Abuse Patient Records regulations: The Federal rules restrict any use of the information to criminally investigate or prosecute any alcohol or drug abuse patient.[facility] HospitalIn the event this information is protected by the Federal Confidentiality of Alcohol and Drug Abuse Patient Records regulations: The Federal rules restrict any use of the information to criminally investigate or prosecute any alcohol or drug abuse patient.[facility] HospitalIn the event this information is protected by the Federal Confidentiality of Alcohol and Drug Abuse Patient Records regulations: The Federal rules restrict any use of the information to criminally investigate or prosecute any alcohol or drug abuse patient.[facility] HospitalIn the event this information is protected by the Federal Confidentiality of Alcohol and Drug Abuse Patient Records regulations: The Federal rules restrict any use of the information to criminally investigate or prosecute any alcohol or drug abuse patient.[facility] Care Teams (unrecognized sec tion and content) Team Status: Active Member Role Status Dates Leydi Aceves MD Primary Care Provider Active Team Status: Active Member Role Status Dates Leydi Aceves MD Primary Care Provider Active S tart: August 03, 2023 Nicola Leyva MD Attending Provider Active Start: August 03, 2023 Team Status: Inactive Member Role Status Dates Leydi Aceves MD Primary Care Provider Active S tart: August 22, 2023 End: August 22, 2023 Bailey Mccann APRN Attending Provider Active S tart: August 22, 2023 End: August 22, 2023 Behavioral Health Associate Relationship Specialty Start Date End Date Leydi [...] Young MD Admit Provider, Attending Provider Active Behavioral Health Associate Relationship Specialty Start Date End Date Leydi Aceves PCP - General [facility] 01/07/15 Behavioral Health Associate Relationship Specialty Start Date End Date [place] junior[place] PCP - General [facility] 01/07/15 Behavioral Health Associate Relationship Specialty Start Date End Date Leydi Acevescris PCP - [facility] 01/07/15 Behavioral Health Associate Relationship Specialty Start Date End Date Ketan Leydi Temple PCP - General [facility] 01/07/15 Behavioral Health Associate Relationship Specialty Start Date End Date Leydi Aceves MD PCP - [facility] 01/07/15 Behavioral Health Associate Relationship Specialty Start Date End Date Leydi Aceves MD PCP - [facility] 01/07/15 Behavioral Health Associate Relationship Specialty Start Date End Date Leydi Aceves MD [address] [facility] [address] [place] [address] PCP - [facility] 07/29/22 Leydi Aceves MD [address] [place] [address] [place] [address] PCP [facility] 05/30/22 Behavioral Health Associate Relationship Specialty Start Date End Date Leydi Aceves MD [address] [place] [address] PCP - [facility] 07/29/22 Leydi Aceves MD [address] [place] [address] PCP [facility] 05/30/22 Behavioral Health Associate Relationship Specialty Start Date End Date Leydi Aceves MD PCP - [facility] 01/07/15 Behavioral Health Associate Relationship Specialty Start Date End Date Leydi Aceves MD PCP - General Family Medicine 01/07/15 Behavioral Health Associate Relationship Specialty Start Date End Date Leydi Aceves MD PCP - General Family Medicine 01/07/15 Team Status: Active Member Role Status Dates Leydi Aceves MD Primary Care Provider Active S tart: August 03, 2023 Nicola Leyva MD Attending Provider Active Start: August 03, 2023 Team Status: Inactive Member Role Status Dates Leydi Aceves MD Primary Care Provider Active S tart: August 22, 2023 End: August 22, 2023 Bailey Mccann APRN Attending Provider Active S tart: August 22, 2023 End: August 22, 2023 Goals (unrecognized section and content) Goals may be documented in a n alternate sectionGoals may be documented in an alternate section Reason for Visit (unrecogniz ed section and content) Reason Comments Refill Request Reason Comments Follow Up Reason Comments Patient Request Reason Onset Date Comments Med Refill 04/05/2023 Reason Comments Polyarthritis Reason Onset Date Comments Refill Request 07/05/2023 Reason Onset Date Comments Refill Request 08/16/2023 FOR RECORDS PERTAINING TO PATIENTS WHO ARE [...] BE BASED ON THE PRIMARY CLINICAL RECORDS. [facility]. provides no warranty or guarantee of the accuracy or completeness of information in this document.
--- NOTE | 2023-09-03 19:16 | ED_ITS ---
HPI - Extremity Problem General Chief complaint: Extremity Problem, Nontraumatic Stated complaint: ARTHRITIS FLAIR-UP Time Seen by Provider: 09/03/23 18:37 Source: patient Mode of arrival: walk-in Limitations: no limitations History of Present Illness HPI Narrative: 33-year-old male presents to the emergency department for joint pain. He has a history of rheumatoid arthritis and was seen here 3 days ago for same issue. At that time he was given IM Toradol and morphine and a prescription for prednisone taper which she is still taking. No fever or injury. The pain is moderate to severe and continuous. Related Data Home Medications ?Medication ?Instructions ?Recorded ?Confirmed amlodipine 10 mg tablet 10 mg PO QDAY 08/31/22 07/03/23 celecoxib 100 mg capsule 100 mg PO DAILY PRN RA flare 08/31/22 07/03/23 clonidine HCl 0.1 mg tablet 0.1 mg PO BID 08/31/22 07/03/23 colchicine 0.6 mg tablet 0.6 mg PO .every other 08/31/22 07/03/23 quetiapine 50 mg tablet See Rx Instructions PO .hs 08/31/22 07/03/23 tramadol 50 mg tablet 50 mg PO Q6H PRN pain 08/31/22 07/03/23 gabapentin 300 mg capsule 300 mg PO TID 02/15/23 07/03/23 (Neurontin) cyclobenzaprine 10 mg tablet 10 mg PO TID PRN muscle spasm 03/06/23 07/03/23 allopurinol 100 mg tablet 100 mg PO .QD 06/03/23 07/03/23 allopurinol 300 mg tablet 300 mg PO BID 06/03/23 07/03/23 buspirone 5 mg tablet 5 mg PO BID 06/03/23 07/03/23 cariprazine 1.5 mg capsule 1.5 mg PO .QD 06/03/23 07/03/23 (Vraylar) escitalopram oxalate 20 mg tablet 20 mg PO .QD 06/03/23 07/03/23 Previous Rx's ?Medication ?Instructions ?Recorded prednisone 10 mg tablet 10 mg PO DAILY #42 tabs 07/03/23 prednisone 10 mg tablet See Rx Instructions .Route 08/31/23 .COMPLEX #30 tabs Allergies Allergy/AdvReac Type Severity Reaction Status Date / Time No Known Drug Allergies Allergy Verified 07/03/23 13:15 Review of Systems ROS Narrative A ten point review of systems is negative except as noted above. PFSH PFSH Medical History Acute hypernatremia ?E87.0 - Hyperosmolality and hypernatremia (ICD-10) Altered mental status ?R41.82 - Altered mental status, unspecified (ICD-10) Sepsis ?A41.9 - Sepsis, unspecified organism (ICD-10) Acute kidney injury ?N17.9 - Acute kidney failure, unspecified (ICD-10) MONO (generalized anxiety disorder) ?F41.1 - Generalized anxiety disorder (ICD-10) Rheumatoid arthritis ?M06.9 - Rheumatoid arthritis, unspecified (ICD-10) Benign essential hypertension ?I10 - Essential (primary) hypertension (ICD-10) Gouty arthritis ?M10.9 - Gout, unspecified (ICD-10) Acute postoperative pain of knee ?G89.18 - Other acute postprocedural pain (ICD-10) ?M25.569 - Pain in unspecified knee (ICD-10) Visit for wound check ?Z51.89 - Encounter for other specified aftercare (ICD-10) Septic prepatellar bursitis of right knee ?M71.161 - Other infective bursitis, right knee (ICD-10) Acute viral syndrome ?B34.9 - Viral infection, unspecified (ICD-10) Diarrhea ?R19.7 - Diarrhea, unspecified (ICD-10) Rheumatoid arthritis flare ?M06.9 - Rheumatoid arthritis, unspecified (ICD-10) Polyarthralgia ?M25.50 - Pain in unspecified joint (ICD-10) Rheumatoid arthritis flare ?M06.9 - Rheumatoid arthritis, unspecified (ICD-10) Weakness ?R53.1 - Weakness (ICD-10) Mild shortness of breath ?R06.02 - Shortness of breath (ICD-10) Headache ?R51.9 - Headache, unspecified (ICD-10) Polyarthralgia ?M25.50 - Pain in unspecified joint (ICD-10) Flare of rheumatoid arthritis ?M06.9 - Rheumatoid arthritis, unspecified (ICD-10) Arthralgia ?M25.50 - Pain in unspecified joint (ICD-10) Drug-seeking behavior ?Z76.5 - Malingerer [conscious simulation] (ICD-10) Surgical History (Updated 04/20/23 @ 23:12 by April Sierra RN) Total knee replacement status ?Z96.659 - Presence of unspecified artificial knee joint (ICD-10) H/O shoulder surgery ?Z98.890 - Other specified postprocedural states (ICD-10) Social History (Updated 04/20/23 @ 23:15 by April Sierra RN) Smoking status: Never smoker Nicotine containing products detail: chew tobacco Highest level of school completed/degree received: decline to answer Exam Narrative Exam Narrative: Nurses note and vital signs reviewed and patient is not hypoxic. General: The patient appears well and in no apparent distress. Patient is resting comfortably on cart. Skin: Warm, dry, no pallor noted. There is no rash noted. Head: Normocephalic, atraumatic Eye: Normal conjunctiva, no drainage Ears, Nose, Mouth, and Throat: oral mucosa is moist. Nares patent. Cardiovascular: Regular Rate and Rhythm Respiratory: Patient is in no distress, no accessory muscle use, lungs are clear to auscultation, no wheezing, rales or rhonchi Back: non-tender, no CVA tenderness bilaterally to percussion. GI: Soft and nontender Musculoskeletal: He has a few joints that are minimally swollen but not erythematous in particular his right third MCP Neurological: Awake and alert Psychiatric: Cooperative Constitutional Vital Signs, click to edit/add: Last Vital Signs Temp 97.9 F 09/03/23 18:37 Pulse 103 H 09/03/23 18:37 Resp 18 09/03/23 18:37 BP 158/98 H 09/03/23 18:37 Pulse Ox 95 09/03/23 18:37 O2 Del Method Room Air 09/03/23 18:37 Course Vital Signs Vital signs: Vital Signs Temperature 97.9 F 09/03/23 18:37 Pulse Rate 103 H 09/03/23 18:37 Respiratory Rate 18 09/03/23 18:37 Blood Pressure 158/98 H 09/03/23 18:37 Pulse Oximetry 95 09/03/23 18:37 Oxygen Delivery Method Room Air 09/03/23 18:37 Temperature 97.9 F 09/03/23 18:37 Pulse Rate 103 H 09/03/23 18:37 Respiratory Rate 18 09/03/23 18:37 Blood Pressure 158/98 H 09/03/23 18:37 Pulse Oximetry 95 09/03/23 18:37 Oxygen Delivery Method Room Air 09/03/23 18:37 MDM - Extremity (Nontraumatic) MDM Narrative Medical decision making narrative: He was given IM Toradol and morphine and has Ultram at home. He will continue the prednisone. Discharge Plan Discharge Stand Alone Forms: Portal Instructions Chief Complaint: Extremity Problem, Nontraumatic Clinical Impression: Rheumatoid arthritis flare Patient Disposition: Home, Self-Care Time of Disposition Decision: 19:15 Condition: Good Mode of Transportation: Private Vehicle Prescriptions / Home Meds: No Action gabapentin [Neurontin] 300 mg capsule 300 mg PO TID allopurinol 100 mg tablet 100 mg PO .QD Patient Comments: TOTAL DOSE IS 400MG QD buspirone 5 mg tablet 5 mg PO BID Vraylar 1.5 mg capsule 1.5 mg PO .QD escitalopram oxalate 20 mg tablet 20 mg PO .QD allopurinol 300 mg tablet 300 mg PO BID prednisone 10 mg tablet 10 mg PO DAILY Qty: 42 0RF Rx Instructions: Take six Tablets daily for two days. Take five tablets daily for two days. Take four tablets daily for two days. Take three tablets daily for two days. Take two tablets daily for two days. Take one tablet daily for two days. prednisone 10 mg tablet See Rx Instructions .ROUTE .COMPLEX Qty: 30 0RF Rx Instructions: 4 by mouth daily for three days then 3 by mouth daily for three days then 2 by mouth daily for three days then 1 by mouth daily for three days tramadol 50 mg tablet 50 mg PO Q6H PRN (Reason: pain) quetiapine 50 mg tablet See Rx Instructions PO .hs Patient Comments: per pt. 50mg with 25mg Rx Instructions: 75 orally HS; colchicine 0.6 mg tablet 0.6 mg PO .every other clonidine HCl 0.1 mg tablet 0.1 mg PO BID celecoxib 100 mg capsule 100 mg PO DAILY PRN (Reason: RA flare) amlodipine 10 mg tablet 10 mg PO QDAY cyclobenzaprine 10 mg tablet 10 mg PO TID PRN (Reason: muscle spasm) Print Language: Singaporean Instructions: Rheumatoid Arthritis (ED) Referrals: LEYDI ACEVES [Primary Care Provider] - 1 week
[2023-09-03] MEDS: MORPHINE SULFATE 4 MG/ML VIAL 10 MG IM (19:38)
== END 2023-09-03 19:55 | disposition home or self-care (01) ==
PROVIDERS: Emergency Provider Emergency Medicine; PCP Family Medicine
DX: M06.9 Rheumatoid arthritis, unspecified (principal); F17.220 Nicotine dependence, chewing tobacco, uncomplicated
CPT/HCPCS: 96372; 99284; J2270

== ENCOUNTER 2023-10-08 18:59 | Emergency (ER) | payer OTHER, SELFPAY ==
[2023-10-08 19:04] VITALS: BP 170/90; PULSE 96; TEMP 36.9; O2SAT 97; BMI 28.2
--- OUTSIDE RECORDS SUMMARY | 2023-10-08 19:05 | XMS_ITS | CCD ---
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 Manufacturers Agent: Drew Godoy MD Eosinophils/100 WBC (Bld) 0 % Normal 0 [facility] Comment on above: Performed By: #### F LCRYS #### [facility] [address] [place] [address] Manufacturers Agent: Krish Abdi MD [facility] [address] [place] [address] Manufacturers Agent: Drew Godoy MD #### FLDCT #### [facility] [address] [place] [address] Manufacturers Agent: Drew Godoy MD Lymphocytes/100 WBC (Bld) 10 % [facility] Comment on above: Performed By: #### F LCRYS #### [facility] [address] [place] [address] Manufacturers Agent: Krish Abdi MD [facility] [address] [place] [address] Manufacturers Agent: Drew Godoy MD #### FLDCT #### [facility] [address] [place] [address] Manufacturers Agent: Drew Godoy MD [place]/Macrophage 0 % [facility] Comment on above: Performed By: #### F LCRYS #### [facility] [address] [place] [address] Manufacturers Agent: Krish Abdi MD [facility] [address] [place] [address] Manufacturers Agent: Drew Godoy MD #### FLDCT #### [facility] [address] [place] [address] Manufacturers Agent: Drew Godoy MD Neutrophils/100 WBC (Bld) 90 % [facility] Comment on above: Performed By: #### F LCRYS #### [facility] [address] [place] [address] Manufacturers Agent: Krish Abdi MD [facility] [address] [place] [address] Manufacturers Agent: Drew Godoy MD #### FLDCT #### [facility] [address] [place] [address] Manufacturers Agent: Drew Godoy MD RBC (Bld) [#/Vol] 0.99580 10*6/uL Normal [facility] Comment on above: Performed By: #### F LCRYS #### [facility] [address] [place] [address] Manufacturers Agent: Krish Abdi MD [facility] [address] [place] [address] Manufacturers Agent: Drew Godoy MD #### FLDCT #### [facility] [address] [place] [address] Manufacturers Agent: Drew Godoy MD WBC (Bld) [#/Vol] 9.96 10*3/uL [facility] Comment on above: Performed By: #### F LCRYS #### [address] [address] Manufacturers Agent: Krish Abdi MD [facility] [address] [place] [address] Manufacturers Agent: Drew Godoy MD #### FLDCT #### [facility] [address] [place] [address] Manufacturers Agent: Drew Godoy MD Appearance (U) Cloudy [facility] Comment on above: Performed By: #### F LCRYS #### [facility] [address] [place] [address] Manufacturers Agent: Krish Abdi MD [facility] [address] [place] [address] Manufacturers Agent: Drew Godoy MD #### FLDCT #### [facility] [address] [place] [address] Manufacturers Agent: Drew Godoy MD Color (U) Pale Yellow [facility] Comment on above: Performed By: #### F LCRYS #### [address] [id number] Manufacturers Agent: Krish Abdi MD [facility] [address] [place], [place] [address] Manufacturers Agent: Drew Godoy MD #### FLDCT #### [facility] [address] [place], [place] [address] Manufacturers Agent: Drew Godoy MD Type of Specimen .FLUID Normal [facility] Comment on above: Performed By: #### F LCRYS #### [facility] [address] [place], [place] [address] Manufacturers Agent: Krish Abdi MD [facility] [address] [place], [place] [address] Manufacturers Agent: Drew Godoy MD #### FLDCT #### [facility] [address] [place], [place] [address] Manufacturers Agent: Drew Godoy MD [facility] 11-13-2022 [facility] Telephone (ORQ) -- NICK WRAY ([id number]) 1990 Date Time Provider Department 11/13/22 DELMY [...] refill of a tapered prednisone sent to [facility] in [place], ph [phone]. Please advise. Patient has been identified by name and birthdate. Duration of symptoms: N/A Person calling: self Call patient at: at home [phone] (home) [phone] (cell) Was an appointment scheduled: No Closing statement: Results or non-symptom based questions: Thank you for calling [facility], your call will be returned within [...] Fully Assessed Reason for Visit: Patient Request [7952] Order(s):predniSONE (DELTASONE) 5 mg tabletTake 6 tab [...] Encounter Status:Closed by DELMY BOYLE on 11/13/22 [facility] CNOVon 08-14-2022 CNOV Office Visit (RHEUAV ) -- NICK WRAY ([id number]) 1990 M Date Time Provider Department 08/14/22 11:40 AM DELMY BOYLE During your visit today, we recorded the following information about you: Pulse Respiration Blood pressure Weight 94/minute 16/minute 132/93 99.8 kg Delmy Boyle MD 08/14/2022 5:15 PM Signed DX: chronic tophaceous gout, 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 Polyarthritis with several nodules mainly [...] arthritic flares once every 4 months[address] cleaner [address] Jaime in [place] who did diagnostic knee aspiration which according to patient was positive for uric acid crystals. Treated with steroids and continued allopurinol. He has not seen Dr. Jaime since 2014. In 2014, he was hospitalized in [place] for acute polyarthritis. Saw washroom cleaner while in hospital who told him that he possibly had RA. Discharged on steroids. His PCP switched him from allopurinol to Uloric Jan 2017. He also takes colchicine prn. No reduction in frequency or severity of his joint flares with Uloric. In 2017, he has been hospitalized 7-8 times for acute joint flares. Each time he is treated with steroids. Hospitalized at [facility] Apr 2017 for acute flare of inflammatory [...] shoulder surgery by Dr. Tc Coffey at [facility]. No post op complications. Currently on PT - still working on shoulder ROM. 4. GENERAL HEALTH MAINTENANCE -continue follow up on his CKD with nephrology -he will follow up with his PCP for his general health issues RTC in 7 mon, sooner if needed INTERVAL HISTORY -at [facility], he was advised to increase allopurinol from 300 mg BID to 350 mg qam and 300 mg qpm but he is actually taking allopurinol 400 mg qam and 300 qpm instead. Tolerating this higher dose without issues. -He stopped drinking Nov 2021. He started drinking some since [facility]. -he had 2 flares of joint [...] 30 min (more content not included)... Normal [facility] ALT SerPl-cCncon 08-12-2022 ALT [Catalytic activity/Vol] 30 U/L Normal 10-54 [facility] Comment on above: Order Comment: Speci men Type: BLOOD SPECIMEN Ordering Facility: [facility] Address: [address] [place] [address] Performed By: #### C RET1, 1920-8, 1742-6, 1751-7 #### [facility] CLIA [id number] [address] [place] [address] AST SerPl-cCncon 08-12-2022 AST [Catalytic activity/Vol] 28 U/L Normal 14-40 [facility] Comment on above: Order Comment: Speci men Type: BLOOD SPECIMEN Ordering Facility: [facility] Address: [address] [place] [address] Performed By: #### C RET1, 1919-09, 1741-07, 1750-08 #### [facility] CLIA [id number] [address] [place], [place] [address] Albumin SerPl-mCncon 023 Albumin [Mass/Vol] 4.5 g/dL Normal 3.9-4.9 [facility] Comment on above: Order Comment: Speci men Type: BLOOD SPECIMEN Ordering Facility: [facility] Address: [address] [place] [address] Performed By: #### C RET1, 1919-09, 1741-07, 1750-08 #### [facility] CLIA [id number] [address] [place], [place] [address] CBC W Auto Differential pane l (Bld)on 08-12-2022 Basophils (Bld) [#/Vol] 0.00 10*3/uL Normal <0.11 [facility] Comment on above: Order Comment: Speci men Type: BLOOD SPECIMEN Ordering Facility: [facility] Address: [address] [place], [place] [address] Performed By: #### 5 7021-8 #### [facility] CLIA [id number] [address] [place], [place] [address] [facility] CLIA [id number] [address] [facility] [place] [address] [place] Basophils/100 WBC (Bld) 0.0 % Normal [facility] Comment on above: Order Comment: Speci men Type: BLOOD SPECIMEN Ordering Facility: [facility] Address: [address] [place], [place] [address] Performed By: #### 5 7021-8 #### [facility] CLIA [id number] [address] [place] [address] LAB CLIA [id number] [address] [place] [address] [place] Differential cell count method Nom (Bld) Manual Normal [facility] Comment on above: Order Comment: Speci men Type: BLOOD SPECIMEN Ordering Facility: [facility] Address: [address] [place] [address] Performed By: #### 5 7021-8 #### [facility] CLIA [id number] [address] [place] [address] LAB CLIA [id number] [address] [place] [address] [place] Eosinophils (Bld) [#/Vol] 0.08 10*3/uL Normal <0.46 [facility] Comment on above: Order Comment: Speci men Type: BLOOD SPECIMEN Ordering Facility: [facility] Address: [address] [place], [place] [address] Performed By: #### 5 7021-8 #### [facility] CLIA [id number] [address] [place] [address] LAB CLIA [id number] [address] [place] [address] [place] Eosinophils/100 WBC (Bld) 0.9 % Normal [facility] Comment on above: Order Comment: Speci men Type: BLOOD SPECIMEN Ordering Facility: [facility] Address: [address] [place] [address] Performed By: #### 5 7021-8 #### [facility] CLIA [id number] [address] [place] [address] LAB CLIA [id number] [address] [place] [address] [place] Erythrocyte distribution width (RBC) [Ratio] 14.6 % Normal 11.5-15.0 [facility] Comment on above: Order Comment: Speci men Type: BLOOD SPECIMEN Ordering Facility: [facility] Address: [address] [place] [address] Performed By: #### 5 7021-8 #### [facility] CLIA [id number] [address] [place] [address] LAB CLIA [id number] [address] [place] [address] [place] Hematocrit (Bld) [Volume fraction] 45.7 % Normal 39.0-51.0 [facility] Comment on above: Order Comment: Speci men Type: BLOOD SPECIMEN Ordering Facility: [facility] Address: [address] [place] [address] Performed By: #### 5 7021-8 #### [facility] CLIA [id number] [address] [place] [address] LAB CLIA [id number] [address] [place] [address] [place] Hemoglobin (Bld) [Mass/Vol] 15.3 g/dL Normal 13.0-17.0 [facility] Comment on above: Order Comment: Speci men Type: BLOOD SPECIMEN Ordering Facility: [facility] Address: [address] [place] [address] Performed By: #### 5 7021-8 #### [facility] CLIA [id number] [address] [place] [address] LAB CLIA [id number] [address] [place] [address] [place] Lymphocytes (Bld) [#/Vol] 3.27 10*3/uL Normal 1.00-4.00 [facility] Comment on above: Order Comment: Speci men Type: BLOOD SPECIMEN Ordering Facility: [facility] Address: [address] [place] [address] Performed By: #### 5 7021-8 #### [facility] CLIA [id number] [address] [place] [address] LAB CLIA [id number] [address] [place] [address] [place] Lymphocytes/100 WBC (Bld) 37.7 % Normal [facility] Comment on above: Order Comment: Speci men Type: BLOOD SPECIMEN Ordering Facility: [facility] Address: [address] [place] [address] Performed By: #### 5 7021-8 #### [facility] CLIA [id number] [address] [place] [address] LAB CLIA [id number] [address] [place] [address] [place] MCH (RBC) [Entitic mass] 29.4 pg Normal 26.0-34.0 [facility] Comment on above: Order Comment: Speci men Type: BLOOD SPECIMEN Ordering Facility: [facility] Address: [address] [place], [place] [address] Performed By: #### 5 7021-8 #### [facility] CLIA [id number] [address] [place] [address] LAB CLIA [id number] [address] [place] [address] [place] MCHC (RBC) [Mass/Vol] 33.5 g/dL Normal 30.5-36.0 [facility] Comment on above: Order Comment: Speci men Type: BLOOD SPECIMEN Ordering Facility: [facility] Address: [address] [place], [place] [address] Performed By: #### 5 7021-8 #### [facility] CLIA [id number] [address] [place] [address] LAB CLIA [id number] [address] [place] [address] [place] MCV (RBC) [Entitic vol] 87.9 fL Normal 80.0-100.0 [facility] Comment on above: Order Comment: Speci men Type: BLOOD SPECIMEN Ordering Facility: [facility] Address: [address] [place] [address] Performed By: #### 5 7021-8 #### [facility] CLIA [id number] [address] [place] [address] LAB CLIA [id number] [address] [place] [address] [place] Monocytes (Bld) [#/Vol] 0.23 10*3/uL Normal <0.87 [facility] Comment on above: Order Comment: Speci men Type: BLOOD SPECIMEN Ordering Facility: [facility] Address: [address] [place] [address] Performed By: #### 5 7021-8 #### [facility] CLIA [id number] [address] [place] [address] LAB CLIA [id number] [address] [place] [address] [place] Monocytes/100 WBC (Bld) 2.6 % Normal [facility] Comment on above: Order Comment: Speci men Type: BLOOD SPECIMEN Ordering Facility: [facility] Address: [address] [place] [address] Performed By: #### 5 7021-8 #### [facility] CLIA [id number] [address] [place] [address] LAB CLIA [id number] [address] [place] [address] [place] Neutrophils (Bld) [#/Vol] 5.10 10*3/uL Normal 1.45-7.50 [facility] Comment on above: Order Comment: Speci men Type: BLOOD SPECIMEN Ordering Facility: [facility] Address: [address] [place] [address] Performed By: #### 5 7021-8 #### [facility] CLIA [id number] [address] [place] [address] LAB CLIA [id number] [address] [place] [id number] [place] Neutrophils/100 WBC (Bld) 58.8 % Normal [facility] Comment on above: Order Comment: Speci men Type: BLOOD SPECIMEN Ordering Facility: [facility] Address: [address] [place] [address] Performed By: #### 5 7021-8 #### [facility] CLIA [id number] [address] [place] [address] LAB CLIA [id number] [address] [place] [address] [place] Nucleated RBC (Bld) [#/Vol] 10*3/uL Normal <0.01 [facility] Comment on above: Order Comment: Speci men Type: BLOOD SPECIMEN Ordering Facility: [facility] Address: [address] [place] [address] Performed By: #### 5 7021-8 #### [facility] CLIA [id number] [address] [place] [address] LAB CLIA [id number] [address] [place] [address] [place] Nucleated RBC/100 WBC (Bld) [Ratio] 0.0 /100 WBC Normal [facility] Comment on above: Order Comment: Speci men Type: BLOOD SPECIMEN Ordering Facility: [facility] Address: [address] [place] [address] Performed By: #### 5 7021-8 #### [facility] CLIA [id number] [address] [place] [address] LAB CLIA [id number] [address] [place] [address] [place] Platelet mean volume (Bld) [Entitic vol] 10.1 fL Normal 9.0-12.7 [facility] Comment on above: Order Comment: Speci men Type: BLOOD SPECIMEN Ordering Facility: [facility] Address: [address] [place], [place] [address] [id number] Performed By: #### 5 7021-8 #### [facility] CLIA [id number] [address] [place] [address] LAB CLIA [id number] [address] [place] [address] [place] Platelets (Bld) [#/Vol] 289 10*3/uL Normal 150-400 [facility] Comment on above: Order Comment: Speci men Type: BLOOD SPECIMEN Ordering Facility: [facility] Address: [address] Performed By: #### 5 7021-8 #### [facility] CLIA [id number] [address] [place] [address] LAB CLIA [id number] [address] [place] [address] [place] Platelets Estimate (Bld) [#/Vol] Adequate Normal [facility] Comment on above: Order Comment: Speci men Type: BLOOD SPECIMEN Ordering Facility: [facility] Address: [address] Performed By: #### 5 7021-8 #### [facility] CLIA [id number] [address] [place] [address] LAB CLIA [id number] [facility] [place] [address] [place] RBC (Bld) [#/Vol] 5.20 10*6/uL Normal 4.20-6.00 [facility] Comment on above: Order Comment: Speci men Type: BLOOD SPECIMEN Ordering Facility: [facility] Address: [address] [place] [address] Performed By: #### 5 7021-8 #### [facility] CLIA [id number] [address] [place] [address] LAB CLIA [id number] [address] [place] [address] [place] RED CELL MORPH Reviewed: unremarkable Normal [facility] Comment on above: Order Comment: Speci men Type: BLOOD SPECIMEN Ordering Facility: [facility] Address: [address] [place] [address] Performed By: #### 5 7021-8 #### [facility] CLIA [id number] [address] [place] [address] LAB CLIA [id number] [address] [place] [address] [place] WBC (Bld) [#/Vol] 8.67 10*3/uL Normal 3.70-11.00 [facility] Comment on above: Order Comment: Speci men Type: BLOOD SPECIMEN Ordering Facility: [facility] Address: [address] [place] [address] Performed By: #### 5 7021-8 #### [facility] CLIA [id number] [address] [place] [address] LAB CLIA [id number] [address] [place] [address] [place] CREATININE Don 08-12-2022 Creatinine [Mass/Vol] 1.28 mg/dL High 0.73-1.22 [facility] Comment on above: Order Comment: Speci men Type: BLOOD SPECIMEN Ordering Facility: [facility] Address: [address] [place] [address] Performed By: #### C RET1, 1920-8, 1742-6, 1751-7 #### [facility] CLIA [id number] [address] [place] [address] ESTIMATED GLOMERULAR FILTRATION RATE 76 mL/min/1.73m??? Normal >=60 [facility] Comment on above: Order Comment: Speci men Type: BLOOD SPECIMEN Ordering Facility: [facility] Address: [address] [place] [address] Result Comment: Jyoti mated Glomerular Filtration Rate [...] #### C RET1, 1919-09, 1741-07, 1750-08 #### [facility] CLIA [id number] [address] [place], [place] [address] CRP SerPl-mCncon 08-12-2022 CRP [Mass/Vol] mg/L Normal <0.9 [facility] Comment on above: Order Comment: Specmelina mariee Type: BLOOD SPECIMEN Ordering Facility: [facility] Address: [address] [place] [address] Performed By: #### C NEEMA1, 1919-09, 1741-07, 1750-08 #### [facility] CLIA [id number] [address] [place], [place] [address] ESR Westergren method (Bld) [Velocity]on 08-12-2022 ESR (Bld) [Velocity] 5 mm/h Normal 0-15 [facility] Comment on above: Order Comment: Yahaira mariee Type: BLOOD SPECIMEN Ordering Facility: [facility] Address: [address] [place], [place] [address] Performed By: #### 4 537-7 #### [facility] CLIA [id number] [address] [place] [address] [place] Urate SerPl-mCncon 3 Urate [Mass/Vol] 9.2 mg/dL High 4.0-8.1 [facility] Comment on above: Order Comment: Yahaira mariee Type: BLOOD SPECIMEN Ordering Facility: [facility] Address: [address] [place] [address] Performed By: #### C RET1, 1919-09, 1741-07, 1750-08 #### [facility] [place] [id number] [address] [place] [address] CBC AUTO DIFFon 06-28-2022 BASO # 0.0 103/ul Normal 0.0-0.1 [facility] Comment on above: Performed By: #### C BC #### [facility] [address] [address] [address] Nilay Gibbs Basophils/100 WBC (Bld) 0.2 % Normal 0.2-2.0 [facility] Comment on above: Performed By: #### C BC #### [facility] [address] [address] [address] Nilay Gibbs EO # 0.0 103/ul Normal 0.0-0.7 [facility] Comment on above: Performed By: #### C BC #### [facility] [address] [place] [address] Dr. Nilay Gibbs Eosinophils/100 WBC (Bld) 0.3 % Critically low 0.9-7.0 [facility] Comment on above: Performed By: #### C BC #### [facility] [address] [address] [address] iNlay Gibbs Erythrocyte distribution width (RBC) [Ratio] 13.9 % Normal 11.0-15.0 [facility] Comment on above: Performed By: #### C BC #### [facility] [address] [place] [address] Dr. Nilay Gibbs Hematocrit (Bld) [Volume fraction] 39.8 % Critically low 42.0-54.0 [facility] Comment on above: Performed By: #### C BC #### [facility] [address] [address] [address] Nilay Gibbs Hemoglobin (Bld) [Mass/Vol] 13.2 g/dL Critically low 14.0-18.0 [facility] Comment on above: Performed By: #### C BC #### [facility] [address] [address] [address] Nilay Gibbs IG # 0.04 10e3/ul Critically high 0.00-0.03 [facility] Comment on above: Performed By: #### C BC #### [facility] [address] [place] [address] Dr. Nilay Gibbs IG % 0.4 % Normal 0.0-0.5 [facility] Comment on above: Performed By: #### C BC #### [facility] [address] [place] [address] Dr. Nilay Gibsb LYMPH # 1.8 103/ul Normal 1.2-3.8 [facility] Comment on above: Performed By: #### C BC #### [facility] [address] [place] [address] Dr. Nilay Gibbs Lymphocytes/100 WBC (Bld) 17.5 % Critically low 20.5-60.0 [facility] Comment on above: Performed By: #### C BC #### [facility] [address] [place] [address] Dr. Nilay Gibbs MANUAL DIFF REQ NO Normal [facility] Comment on above: Performed By: #### C BC #### [facility] [address] [place] [address] Dr. Nilay Gibbs MCH (RBC) [Entitic mass] 29.3 pg Normal 25.9-34.0 [facility] Comment on above: Performed By: #### C BC #### [facility] [address] [place] [address] Dr. Nilay Gibbs MCHC (RBC) [Mass/Vol] 33.2 g/dL Normal 29.9-35.2 [facility] Comment on above: Performed By: #### C BC #### [facility] [address] [place] [address] Dr. Nilay Gibbs MCV (RBC) [Entitic vol] 88.4 fL Normal 80.0-94.0 [facility] Comment on above: Performed By: #### C BC #### [facility] [address] [place] [address] Dr. Nilay Gibbs MONO # 0.9 103/ul Critically high 0.3-0.8 [facility] Comment on above: Performed By: #### C BC #### [facility] [address] [address] [address] Nilay Gibbs Monocytes/100 WBC (Bld) 9.4 % Normal 1.7-12.0 [facility] Comment on above: Performed By: #### C BC #### [facility] [address] [place] [address] Dr. Nilay Gibbs NEUT # 7.2 103/ul Critically high 1.4-6.5 [facility] Comment on above: Performed By: #### C BC #### [facility] [address] [place] [address] Dr. Nilay Gibbs Neutrophils/100 WBC (Bld) 72.2 % Normal 43.0-75.0 [facility] Comment on above: Performed By: #### C BC #### [facility] [address] [place] [address] Dr. Nilay Gibbs Platelet mean volume (Bld) [Entitic vol] 9.6 fL Normal 9.5-13.5 [facility] Comment on above: Performed By: #### C BC #### [facility] [address] [place] [address] Dr. Nilay Gibbs PLT 356 103/ul Normal 150-450 [facility] Comment on above: Performed By: #### C BC #### [facility] [address] [place] [address] Dr. Nilay Gibbs RBC 4.50 106/ul Critically low 4.70-6.10 [facility] Comment on above: Performed By: #### C BC #### [facility] [address] [place] [address] Dr. Nilay Gibbs WBC 10.0 103/ul Normal 4.0-11.0 [facility] Comment on above: Performed By: #### C BC #### [facility] [address] [place] [address] Dr. Nilay Gibbs PROF CHEM 8 (BAS METB)on Anion gap [Moles/Vol] 12.4 mmol/L Normal [facility] Comment on above: Performed By: #### A MM #### [facility] [address] [place] [address] Dr. Nilay Gibbs Calcium [Mass/Vol] 9.4 mg/dL Normal 8.5-10.[address] [facility] Comment on above: Performed By: #### A MM #### [facility] [address] [place] [address] Dr. Nilay Gibbs Chloride [Moles/Vol] 105 mmol/L Normal 98-107 [facility] Comment on above: Performed By: #### A MM #### [facility] [address] [address] [address] Nilay Gibbs CO2 [Moles/Vol] 25.6 mmol/L Normal 21.0-32.0 [facility] Comment on above: Performed By: #### A MM #### [facility] [address] [place] [address] Dr. Nilay Gibbs Creatinine [Mass/Vol] 1.18 mg/dL Normal 0.70-1.30 [facility] Comment on above: Performed By: #### A MM #### [facility] [address] [place] [address] Dr. Nilay Gibbs EGFR-AF NIGERIAN >60 Normal >=60 [facility] Comment on above: Performed By: #### A MM #### [facility] [address] [place] [address] Dr. Nilay Gibbs EGFR-NON AF NIGERIAN >60 Normal >=60 [facility] Comment on above: Performed By: #### A MM #### [facility] [address] [place] [address] Dr. Nilay Gibbs Glucose [Mass/Vol] 125 mg/dL Critically high 74-106 [facility] Comment on above: Performed By: #### A MM #### [facility] [address] [place] [address] Dr. Nilay Gibbs Potassium [Moles/Vol] 4.3 mmol/L Normal 3.5-5.1 [facility] Comment on above: Performed By: #### A MM #### [facility] [address] [place] [address] Dr. Nilay Gibbs Sodium [Moles/Vol] 139 mmol/L Normal 136-145 [facility] Comment on above: Performed By: #### A MM #### [facility] [address] [place] [address] Dr. Nilay Gibbs Urea nitrogen [Mass/Vol] 15.0 mg/dL Normal 7.0-18.0 [facility] Comment on above: Performed By: #### A MM #### [facility] [address] [place] [address] Dr. Nilay Gibbs Urea nitrogen/Creatinine [Mass ratio] 12.7 mg/mg Normal [facility] Comment on above: Performed By: #### A MM #### [facility] [address] [place] [address] Dr. Nilay Gibbs CBC AUTO DIFFon 06-20-2022 BASO # 0.0 103/ul Normal 0.0-0.1 [facility] Comment on above: Performed By: #### A MM #### [facility] [address] [place] [address] Dr. Nilay Gibbs Basophils/100 WBC (Bld) 0.2 % Normal 0.2-2.0 [facility] Comment on above: Performed By: #### A MM #### [facility] [address] [place] [address] Dr. Nilay Gibbs EO # 0.0 103/ul Normal 0.0-0.7 [facility] Comment on above: Performed By: #### A MM #### [facility] [address] [place] [address] Dr. Nilay Gibbs Eosinophils/100 WBC (Bld) 0.3 % Critically low 0.9-7.0 [facility] Comment on above: Performed By: #### A MM #### [facility] [address] [place] [address] Dr. Nilay Gibbs Erythrocyte distribution width (RBC) [Ratio] 14.3 % Normal 11.0-15.0 [facility] Comment on above: Performed By: #### A MM #### [facility] [address] [place] [address] Dr. Nilay Gibbs Hematocrit (Bld) [Volume fraction] 39.3 % Critically low 42.0-54.0 [facility] Comment on above: Performed By: #### A MM #### [facility] [address] [place] [address] Dr. Nilay Gibbs Hemoglobin (Bld) [Mass/Vol] 13.1 g/dL Critically low 14.0-18.0 [facility] Comment on above: Performed By: #### A MM #### [facility] [address] [place] [address] Dr. Nilay Gibbs IG # 0.03 10e3/ul Normal 0.00-0.03 [facility] Comment on above: Performed By: #### A MM #### [facility] [address] [place] [address] Dr. Nilay Gibbs IG % 0.3 % Normal 0.0-0.5 [facility] Comment on above: Performed By: #### A MM #### [facility] [address] [place] [address] Dr. Nilay Gibbs LYMPH # 1.7 103/ul Normal 1.2-3.8 [facility] Comment on above: Performed By: #### A MM #### [facility] [address] [place] [address] Dr. Nilay Gibbs Lymphocytes/100 WBC (Bld) 14.5 % Critically low 20.5-60.0 [facility] Comment on above: Performed By: #### A MM #### [facility] [address] [place] [address] Dr. Nilay Gibbs MANUAL DIFF REQ NO Normal [facility] Comment on above: Performed By: #### A MM #### [facility] [address] [place] [address] Dr. Nilay Gibbs MCH (RBC) [Entitic mass] 29.2 pg Normal 25.9-34.0 [facility] Comment on above: Performed By: #### A MM #### [facility] [address] [place] [address] Dr. Nilay Gibbs MCHC (RBC) [Mass/Vol] 33.3 g/dL Normal 29.9-35.2 [facility] Comment on above: Performed By: #### A MM #### [facility] [address] [address] [address] Nilay Gibbs MCV (RBC) [Entitic vol] 87.5 fL Normal 80.0-94.0 [facility] Comment on above: Performed By: #### A MM #### [facility] [address] [address] [address] Nilay Gibbs MONO # 1.3 103/ul Critically high 0.3-0.8 [facility] Comment on above: Performed By: #### A MM #### [facility] [address] [address] [address] Nilay Gibbs Monocytes/100 WBC (Bld) 10.9 % Normal 1.7-12.0 [facility] Comment on above: Performed By: #### A MM #### [facility] [address] [address] [address] Nilay Gibbs NEUT # 8.7 103/ul Critically high 1.4-6.5 [facility] Comment on above: Performed By: #### A MM #### [facility] [address] [address] [address] Nilay Gibbs Neutrophils/100 WBC (Bld) 73.8 % Normal 43.0-75.0 [facility] Comment on above: Performed By: #### A MM #### [facility] [address] [address] [address] Nilay Gibbs Platelet mean volume (Bld) [Entitic vol] 10.9 fL Normal 9.5-13.5 [facility] Comment on above: Performed By: #### A MM #### [facility] [address] [address] [address] Nilay Gibbs PLT 171 103/ul Normal 150-450 [facility] Comment on above: Performed By: #### A MM #### [facility] [address] [address] [address] Nliay Gibbs RBC 4.49 106/ul Critically low 4.70-6.10 [facility] Comment on above: Performed By: #### A MM #### [facility] [address] [place] [address] Dr. Nilay Gibbs WBC 11.7 103/ul Critically high 4.0-11.0 [facility] Comment on above: Performed By: #### A MM #### [facility] [address] [place] [address] Dr. Nilay Gibbs CRPon 06-20-2022 CRP 25.4 mg/dL Critically high <=1.0 [facility] Comment on above: Performed By: #### C RP, CMP #### [facility] [address] [place] [address] Dr. Nilay Gibbs CULTURE BLOODon 06-20-2022 Microscopic examination of blood, culture Culture Observations: NO GROWTH AT 5 DAYS. Normal [facility] Comment on above: Performed By: #### C MP #### [facility] [address] [place] [address] Dr. Nilay Gibbs Microscopic examination of blood, culture Culture Observations: NO GROWTH AT [address] [facility] Comment on above: Performed By: #### C MP #### [facility] [address] [place] [address] Dr. Nilay Gibbs LACTATE/LACTIC ACIDon 2022 Lactate [Moles/Vol] 0.7 mmol/L Normal 0.4-2.0 [facility] Comment on above: Performed By: #### A MM #### [facility] [address] [place] [address] Dr. Nilay Gibbs PROF 14(COMP METB)on 023 Albumin [Mass/Vol] 3.8 g/dL Normal 3.4-5.0 [facility] Comment on above: Performed By: #### C RP, CMP #### [facility] [address] [place] [address] Dr. Nilay Gibbs Albumin/Globulin [Mass ratio] 1.1 {ratio} [facility] Comment on above: Performed By: #### C RP, CMP #### [facility] [address] [place] [address] Dr. Nilay Gibbs ALP [Catalytic activity/Vol] 85 U/L Normal 46-116 [facility] Comment on above: Performed By: #### C RP, CMP #### [facility] [address] [place] [address] Dr. Nilay Gibbs ALT [Catalytic activity/Vol] 29 U/L Normal 16-63 [facility] Comment on above: Performed By: #### C RP, CMP #### [facility] [address] [place] [address] Dr. Nilay Gibbs Anion gap [Moles/Vol] 15.2 mmol/L Normal [facility] Comment on above: Performed By: #### C RP, CMP #### [facility] [address] [place] [address] Dr. Nilay Gibbs AST [Catalytic activity/Vol] 20 U/L Normal 15-37 [facility] Comment on above: Performed By: #### C RP, CMP #### [facility] [address] [place] [address] Dr. Nilay Gibbs Bilirubin [Mass/Vol] 1.1 mg/dL Critically high 0.2-1.0 [facility] Comment on above: Performed By: #### C RP, CMP #### [facility] [address] [place] [address] Dr. Nilay Gibbs Calcium [Mass/Vol] 9.4 mg/dL Normal 8.5-10.1 [facility] Comment on above: Performed By: #### C RP, CMP #### [facility] [address] [place] [address] Dr. Nilay Gibbs Chloride [Moles/Vol] 99 mmol/L Normal 98-107 [facility] Comment on above: Performed By: #### C RP, CMP #### [facility] [address] [place] [address] Dr. Nilay Gibbs CO2 [Moles/Vol] 25.7 mmol/L Normal 21.0-32.0 [facility] Comment on above: Performed By: #### C RP, CMP #### [facility] [address] [place] [address] Dr. Nilay Gibbs Creatinine [Mass/Vol] 1.32 mg/dL Critically high 0.70-1.30 [facility] Comment on above: Performed By: #### C RP, CMP #### [facility] [address] [place] [address] Dr. Nilay Gibbs EGFR-AF NIGERIAN >60 Normal >=60 [facility] Comment on above: Performed By: #### C RP, CMP #### [facility] [address] [place] [address] Dr. Nilay Gibbs EGFR-NON AF NIGERIAN >60 Normal >=60 [facility] Comment on above: Performed By: #### C RP, CMP #### [facility] [address] [place] [address] Dr. Nilay Gibbs Globulin (S) [Mass/Vol] 3.6 g/dL Normal [facility] Comment on above: Performed By: #### C RP, CMP #### [facility] [address] [place] [address] Dr. Nilay Gibbs Glucose [Mass/Vol] 106 mg/dL Normal 74-106 [facility] Comment on above: Performed By: #### C RP, CMP #### [facility] [address] [place] [address] Dr. Nilay Gibbs Potassium [Moles/Vol] 3.9 mmol/L Normal 3.5-5.1 [facility] Comment on above: Performed By: #### C RP, CMP #### [facility] [address] [place] [address] Dr. Nilay Gibbs Protein [Mass/Vol] 7.4 g/dL Normal 6.4-8.[address] [facility] Comment on above: Performed By: #### C RP, CMP #### [facility] [address] [place] [address] Dr. Nilay Gibbs Sodium [Moles/Vol] 136 mmol/L Normal 136-[address] [facility] Comment on above: Performed By: #### C RP, CMP #### [facility] [address] [place] [address] Dr. Nilay Gibbs Urea nitrogen [Mass/Vol] 10.0 mg/dL Normal 7.0-18.0 [facility] Comment on above: Performed By: #### C RP, CMP #### [facility] [address] [place] [address] Dr. Nilay Gibbs Urea nitrogen/Creatinine [Mass ratio] 7.6 mg/mg Normal [facility] Comment on above: Performed By: #### C RP, CMP #### [facility] [address] [address] [address] Nilay Gibbs SED RATE WESTERGRENon 2022 SED RATE 46 mm/hr Critically high <=15 [facility] Comment on above: Performed By: #### S EDR #### [facility] [address] [place] [address] Dr. Nilay Gibbs [facility] SARS-CoV-2 (COVID-19) RNA TALHA+probe Ql (Unsp spec) Not detected Normal NOT DETECTED [facility] Comment on above: Result Comment: When [...] for this test is supported by the [place] of Health and Human Service's declaration that [...] used). Performed By: #### A MM #### [facility] [address] [place] [address] Dr. Nilay Gibbs INFLUENZA A AND B AGon 01-31 INFLUANEGH SEE BELOW Normal [facility] Comment on above: Result Comment: Nega tive for Flu A protein angiten. Infection due to Flu A cannot be ruled out. Flu A angiten in the sample may be below the detection limit of the test. Performed By: #### A MM #### [facility] [address] [address] [address] Nilay [address] [facility] [facility] SEE BELOW Normal [facility] Comment on above: Result Comment: Nega tive for Flu B protein antigen. Infection due to Flu B cannot be ruled out. Flu B antigen in the sample may be below the detection limit of the test. Performed By: #### A MM #### [facility] [address] [address] [address] Nilay Gibbs INFLUENZA A AG Negative Normal NEGATIVE SEE COMMENT [facility] Comment on above: Performed By: #### A MM #### [facility] [address] [place] [address] Dr. Nilay Gibbs INFLUENZA B AG Negative Normal NEGATIVE SEE COMMENT [facility] Comment on above: Performed By: #### A MM #### [facility] [address] [address] [address] Nilay Gibbs INTERNAL CONTROLS Within Normal Limits Normal Wi thin Normal Limits [facility] Comment on above: Performed By: #### A MM #### [facility] [address] [place] [address] Dr. Nilay Gibbs Cholesterol [Mass/volume] in Serum or PlasmaOrdered By: Adam Young on 12-08-2021 Cholesterol [Mass/Vol] 205 mg/dL 140-200 [facility] Comment on above: Chol less than 200 m g/dl low riskChol 201-239 mg/dl borderline riskChol 240 mg/dl and greater high risk Cholesterol in LDL Calc [Mas s/Vol]Ordered By: Adam Young on 12-08-2021 Cholesterol in LDL [Mass/Vol] 120 mg/dL 0-100 [facility] Comment on above: LDL ATP III CLASSIFI CATIONLDL less than 100 mg/dL OptimalLDL 100-129 mg/dL Near or above optimalLDL 130-159 mg/dL Borderline highLDL 160-189 mg/dL HighLDL greater than 189 mg/dL Very high Cholesterol in VLDL Calc [Ma ss/Vol]Ordered By: Adam Young on 12-08-2021 Cholesterol in VLDL [Mass/Vol] 37 mg/dL [facility] No Panel InformationOrdered By: Adam Young on 12-08-2021 25-Hydroxy Vitamin D Total 50.6 ng/mL 30-100 [facility] Comment on above: VITAMIN D STATUS [...] Cholesterol in HDL [Mass/Vol] 47 mg/dL 29-71 [facility] Comment on above: HDL CHOL ATP-III CLA SSIFICATION Cardiovascular RiskHDL > or equal to 60 mg/dL LOWHDL < 40 mg/dL HIGH Serum or plasma total choles terol/high density lipoprotein (HDL) cholesterol mass ratOrdered By: Adam Young on 12-08-2021 Cholesterol.total/Ch olesterol in HDL [Mass ratio] 4.4 {ratio} <5.0 [facility] TSH DL <= 0.005 mIU/L QnOrde red By: Adam Young on 12-08-2021 TSH Qn 0.75 m[IU]/L 0.45-5.33 [facility] Triglyceride [Mass/volume] i n Serum or PlasmaOrdered By: Adam Young on 12-08-2021 Triglyceride [Mass/Vol] 188 mg/dL 35-149 [facility] Comment on above: TRIG ATP III CLASSIF ICATIONTRIG less than 150 mg/dL NormalTRIG 150-199 mg/dL Borderline highTRIG 200-500 mg/dL High TRIG greater than 500 mg/dL Very highStandard traceable to the Center for Disease Conrtrol and Prevention (CDC) test method. Covid-19 PCR ([facility])on SARS-CoV-2 (COVID-19) RNA TALHA+probe Ql (Unsp spec) Not detected Normal NOT DETECTED [facility] Comment on above: Result Comment: When [...] for this test is supported by the [employer] of Health and Human Service's declaration that [...] used). Performed By: #### C MP #### [facility] [address] [place] [address] Dr. Nilay Gibbs ETHANOL (BLD ALC)on 12-08-19 22 Ethanol [Mass/Vol] 288 mg/dL Normal [facility] Comment on above: Performed By: #### C MP #### [facility] [address] [place] [address] Dr. Nilay Gibbs ALC NOTE NOTE: 80 mg/dl is th e legal limit for a blood alcohol level Normal [facility] Comment on above: Performed By: #### C MP #### [facility] [address] [place] [address] Dr. Nilay Gibbs Performed By: #### A MM #### [facility] [address] [place] [address] Dr. Nilay Gibbs Ethanol [Mass/Vol] 130 mg/dL Normal [facility] Comment on above: Performed By: #### A MM #### [facility] [address] [place] [address] Dr. Nilay Gibbs Ethanol [Mass/Vol] 196 mg/dL Normal [facility] Comment on above: Performed By: #### A MM #### [facility] [address] [place] [address] Dr. Nilay Gibbs ACETAMINOPHENon 12-06-2021 Acetaminophen [Mass/Vol] ug/mL Critically low 10.0-30.0 [facility] Comment on above: Performed By: #### A CET #### [facility] [address] [place] [address] Dr. Nilay Gibbs AMMONIAon 12-06-2021 Ammonia (P) [Moles/Vol] 22 umol/L Normal 11-32 [facility] Comment on above: Performed By: #### A MM #### [facility] [address] [place] [address] Dr. Nilay Gibbs CBC AUTO DIFFon 12-06-2021 BASO # 0.0 103/ul Normal 0.0-0.1 [facility] Comment on above: Performed By: #### A MM #### [facility] [address] [place] [address] Dr. Nilay Gibbs Basophils/100 WBC (Bld) 0.5 % Normal 0.2-2.0 [facility] Comment on above: Performed By: #### A MM #### [facility] [address] [place] [address] Dr. Nilay Gibbs EO # 0.1 103/ul Normal 0.0-0.7 [facility] Comment on above: Performed By: #### A MM #### [facility] [address] [place] [address] Dr. Nilay Gibbs Eosinophils/100 WBC (Bld) 1.0 % Normal 0.9-7.0 [facility] Comment on above: Performed By: #### A MM #### [facility] [address] [place] [address] Dr. Nilay Gibbs Erythrocyte distribution width (RBC) [Ratio] 12.9 % Normal 11.0-15.0 [facility] Comment on above: Performed By: #### A MM #### [facility] [address] [place] [address] Dr. Nilay Gibbs Hematocrit (Bld) [Volume fraction] 40.5 % Critically low 42.0-54.0 [facility] Comment on above: Performed By: #### A MM #### [facility] [address] [place] [address] Dr. Nilay Gibbs Hemoglobin (Bld) [Mass/Vol] 13.9 g/dL Critically low 14.0-18.0 [facility] Comment on above: Performed By: #### A MM #### [facility] [address] [place] [address] [address] Nilay Gibbs IG # 0.02 10e3/ul Normal 0.00-0.03 [facility] Comment on above: Performed By: #### A MM #### [facility] [address] [place] [address] Dr. Nilay Gibbs IG % 0.3 % Normal 0.0-0.5 [facility] Comment on above: Performed By: #### A MM #### [facility] [address] [place] [address] Dr. Nilay Gibbs LYMPH # 2.7 103/ul Normal 1.2-3.8 [facility] Comment on above: Performed By: #### A MM #### [facility] [address] [place] [address] Dr. Nilay Gibbs Lymphocytes/100 WBC (Bld) 45.2 % Normal 20.5-60.0 [facility] Comment on above: Performed By: #### A MM #### [facility] [address] [place] [address] Dr. Nilay Gibbs MANUAL DIFF REQ NO Normal [facility] Comment on above: Performed By: #### A MM #### [facility] [address] [place] [address] Dr. Nilay Gibbs MCH (RBC) [Entitic mass] 29.8 pg Normal 25.9-34.0 [facility] Comment on above: Performed By: #### A MM #### [facility] [address] [place] [address] Dr. Nilay Gibbs MCHC (RBC) [Mass/Vol] 34.3 g/dL Normal 29.9-35.2 [facility] Comment on above: Performed By: #### A MM #### [facility] [address] [place] [address] [address] Nilay Gibbs MCV (RBC) [Entitic vol] 86.9 fL Normal 80.0-94.0 [facility] Comment on above: Performed By: #### A MM #### [facility] [address] [place] [address] [address] Nilay Gibbs MONO # 0.4 103/ul Normal 0.3-0.8 [facility] Comment on above: Performed By: #### A MM #### [facility] [address] [place] [address] [address] Nilay Gibbs Monocytes/100 WBC (Bld) 6.3 % Normal 1.7-12.0 [facility] Comment on above: Performed By: #### A MM #### [facility] [address] [place] [address] Dr. Nilay Gibbs NEUT # 2.7 103/ul Normal 1.4-6.5 [facility] Comment on above: Performed By: #### A MM #### [facility] [address] [place] [address] Dr. Nilay Gibbs Neutrophils/100 WBC (Bld) 46.7 % Normal 43.0-75.0 [facility] Comment on above: Performed By: #### A MM #### [facility] [address] [place] [address] Dr. Nilay Gibbs Platelet mean volume (Bld) [Entitic vol] 10.4 fL Normal 9.5-13.5 [facility] Comment on above: Performed By: #### A MM #### [facility] [address] [place] [address] Dr. Nilay Gibbs PLT 237 103/ul Normal 150-450 [facility] Comment on above: Performed By: #### A MM #### [facility] [address] [place] [address] [address] Nilay Gibbs RBC 4.66 106/ul Critically low 4.70-6.10 [facility] Comment on above: Performed By: #### A MM #### [facility] [address] [place] [address] Dr. Nilay Gibbs WBC 5.9 103/ul Normal 4.0-11.0 [facility] Comment on above: Performed By: #### A MM #### [facility] [address] [place] [address] Dr. Nilay Gibbs DRUG SCREEN RAPID (URINE)on 12-06-2021 AMP Negative Normal NEGATIVE [facility] Comment on above: Performed By: #### D RUGRPD #### [facility] [address] [place] [address] Dr. Nilay Gibbs BAR Negative Normal NEGATIVE [facility] Comment on above: Performed By: #### D RUGRPD #### [facility] [address] [place] [address] Dr. Nilay Gibbs BUP Negative Normal NEGATIVE [facility] Comment on above: Performed By: #### D RUGRPD #### [facility] [address] [place] [address] Dr. Nilay Gibbs BZO Positive Abnormal NEGATIVE [facility] Comment on above: Performed By: #### D RUGRPD #### [facility] [address] [place] [address] Dr. Nilay Gibbs ROQUE Negative Normal NEGATIVE [facility] Comment on above: Performed By: #### D RUGRPD #### [facility] [address] [place] [address] Dr. Nilay Gibbs CUT-OFFS SEE BELOW Normal [facility] Comment on above: Result Comment: AMP [...] ng/mL Performed By: #### D RUGRPD #### [facility] [address] [place] [address] Dr. Nilay Gibbs DRUG CUT HEADER DRUG CLASS TEST SYST EM CUT-OFF CONCENTRATIONS ARE FOLLOWS: Normal [facility] Comment on above: Performed By: #### D RUGRPD #### [facility] [address] [place] [address] Dr. Nilay Gibbs mAMP Negative Normal NEGATIVE [facility] Comment on above: Performed By: #### D RUGRPD #### [facility] [address] [place] [address] Dr. Nilay Gibbs MTD Negative Normal NEGATIVE [facility] Comment on above: Performed By: #### D RUGRPD #### [facility] [address] [place] [address] Dr. Nilay Gibbs OPI Negative Normal NEGATIVE [facility] Comment on above: Performed By: #### D RUGRPD #### [facility] [address] [place] [address] Dr. Nilay Gibbs OXY Negative Normal NEGATIVE [facility] Comment on above: Performed By: #### D RUGRPD #### [facility] [address] [place] [address] Dr. Nilay Gibbs PCP Negative Normal NEGATIVE [facility] Comment on above: Performed By: #### D RUGRPD #### [facility] [address] [place] [address] Dr. Nilay Gibbs PPX Negative Normal NEGATIVE [facility] Comment on above: Performed By: #### D RUGRPD #### [facility] [address] [place] [address] Dr. Nilay Gibbs TCA Negative Normal NEGATIVE [facility] Comment on above: Performed By: #### D RUGRPD #### [facility] [address] [place] [address] Dr. Nilay Gibbs THC Negative Normal NEGATIVE [facility] Comment on above: Performed By: #### D RUGRPD #### [facility] [address] [place] [address] Dr. Nilay Gibbs ETHANOL (BLD ALC)on 12-07-19 22 ALC NOTE NOTE: 80 mg/dl is th e legal limit for a blood alcohol level Normal [facility] Comment on above: Performed By: #### C MP #### [facility] [address] [place] [address] Dr. Nilay Gibbs Ethanol [Mass/Vol] 336 mg/dL Normal [facility] Comment on above: Performed By: #### C MP #### [facility] [address] [place] [address] Dr. Nilay Gibbs PROF 14(COMP METB)on 022 Albumin [Mass/Vol] 4.2 g/dL Normal 3.4-5.0 [facility] Comment on above: Performed By: #### C MP #### [facility] [address] [place] [address] Dr. Nilay Gibbs Albumin/Globulin [Mass ratio] 1.3 {ratio} Normal [facility] Comment on above: Performed By: #### C MP #### [facility] [address] [place] [address] Dr. Nilay Gibbs ALP [Catalytic activity/Vol] 104 U/L Normal 46-116 [facility] Comment on above: Performed By: #### C MP #### [facility] [address] [place] [address] Dr. Nilay Gibbs ALT [Catalytic activity/Vol] 41 U/L Normal 16-63 [facility] Comment on above: Performed By: #### C MP #### [facility] [address] [place] [address] Dr. Nilay Gibbs Anion gap [Moles/Vol] 11.5 mmol/L Normal [facility] Comment on above: Performed By: #### C MP #### [facility] [address] [place] [address] Dr. Nilay Gibbs AST [Catalytic activity/Vol] 37 U/L Normal 15-37 [facility] Comment on above: Performed By: #### C MP #### [facility] [address] [place] [address] Dr. Nilay Gibbs Bilirubin [Mass/Vol] 0.2 mg/dL Normal 0.2-1.0 [facility] Comment on above: Performed By: #### C MP #### [facility] [address] [place] [address] Dr. Nilay Gibbs Calcium [Mass/Vol] 8.6 mg/dL Normal 8.5-10.1 [facility] Comment on above: Performed By: #### C MP #### [facility] [address] [place] [address] [address] Nilay Gibbs Chloride [Moles/Vol] 97 mmol/L Critically low 98-107 [facility] Comment on above: Performed By: #### C MP #### [facility] [address] [place] [address] Dr. Nilay Gibbs CO2 [Moles/Vol] 26.0 mmol/L Normal 21.0-32.0 [facility] Comment on above: Performed By: #### C MP #### [facility] [address] [place] [address] Dr. Nilay Gibbs Creatinine [Mass/Vol] 1.47 mg/dL Critically high 0.70-1.30 [facility] Comment on above: Performed By: #### C MP #### [facility] [address] [place] [address] Dr. Nilay Gibbs EGFR-AF NIGERIAN >60 Normal >=60 [facility] Comment on above: Performed By: #### C MP #### [facility] [address] [place] [address] Dr. Nilay Gibbs EGFR-NON AF NIGERIAN 56 mL/min/1.73m2 Critically low >=60 [facility] Comment on above: Performed By: #### C MP #### [facility] [address] [place] [address] Dr. Nilay Gibbs Globulin (S) [Mass/Vol] 3.2 g/dL Normal [facility] Comment on above: Performed By: #### C MP #### [facility] [address] [place] [address] Dr. Nilay Gibbs Glucose [Mass/Vol] 117 mg/dL Critically high 74-106 [facility] Comment on above: Performed By: #### C MP #### [facility] [address] [place], [place] [address] Dr. Nilay Gibbs Potassium [Moles/Vol] 3.5 mmol/L Normal 3.5-5.1 [facility] Comment on above: Performed By: #### C MP #### [facility] [address] [place], [place] [address] Dr. Nilay Gibbs Protein [Mass/Vol] 7.4 g/dL Normal 6.4-8.2 [facility] Comment on above: Performed By: #### C MP #### [facility] [address] [place] [address] [address] Nilay Gibbs Sodium [Moles/Vol] 131 mmol/L Critically low 136-145 [facility] Comment on above: Performed By: #### C MP #### [facility] [address] [place] [address] [address] Nilay Gibbs Urea nitrogen [Mass/Vol] 14.0 mg/dL Normal 7.0-18.0 [facility] Comment on above: Performed By: #### C MP #### [facility] [address] [place] [address] [address] Nilay Gibbs Urea nitrogen/Creatinine [Mass ratio] 9.5 mg/mg Normal [facility] Comment on above: Performed By: #### C MP #### [facility] [address] [place] [id number] Nilay Gibbs SALICYLATEon 12-06-2021 SALICYLATE <2.8 Normal <=19.9 [facility] Comment on above: Performed By: #### A MM #### [facility] [address] [place], [place] [address] Dr. Nilay Gibbs MRI Shoulder w/o Lefton [...] by Stephen Ware on 11/11/2021 0955 Normal [facility] Activated partial thrombopla stin time (aPTT) in platelet poor plasma by coagulation aOrdered By: Kristal Goldberg on 09-27-2021 aPTT Coag (PPP) [Time] 34.7 s 25.1-36.5 [facility] Albumin [Mass/volume] in Ser um or PlasmaOrdered By: Kristal Goldberg on 09-27-2021 Albumin [Mass/Vol] 4.1 g/dL 3.2-5.5 [facility] Basophils Auto (Bld) [#/Vol] Ordered By: Kristal Goldberg on 09-27-2021 Basophils (Bld) [#/Vol] 0.0 10*3/uL 0.0-0.2 [facility] Basophils/100 WBC Auto (Bld) Ordered By: Kristal Goldberg on 09-27-2021 Basophils/100 WBC (Bld) 0.3 % . [facility] Bilirubin Auto test strip Ql (U)Ordered By: Kristal Goldberg on 09-27-2021 Bilirubin Ql (U) Negative Negative [facility] Blood hemoglobin measurement (mass/volume)Ordered By: Kristal Goldberg on 09-27-2021 Hemoglobin (Bld) [Mass/Vol] 13.6 g/dL 13.0-17.0 [facility] Blood leukocytes automated c ount (number/volume)Ordered By: Kristal Goldberg on 09-27-2021 WBC (Bld) [#/Vol] 5.7 10*3/uL 4.5-11.0 [facility] CBC AUTO DIFFon 09-27-2021 BASO # 0.0 103/ul Normal 0.0-0.1 [facility] Comment on above: Performed By: #### A MM #### [facility] [address] [place] [address] [address] Nilay Gibbs Basophils/100 WBC (Bld) 0.5 % Normal 0.2-2.0 [facility] Comment on above: Performed By: #### A MM #### [facility] [address] [place] [address] Dr. Nilay Gibbs EO # 0.1 103/ul Normal 0.0-0.7 [facility] Comment on above: Performed By: #### A MM #### [facility] [address] [place] [address] [address] Nilay Gibbs Eosinophils/100 WBC (Bld) 1.6 % Normal 0.9-7.0 [facility] Comment on above: Performed By: #### A MM #### [facility] [address] [place] [address] Dr. Nilay Gibbs Erythrocyte distribution width (RBC) [Ratio] 14.0 % Normal 11.0-15.0 [facility] Comment on above: Performed By: #### A MM #### [facility] [address] [place] [address] Dr. Nilay Gibbs Hematocrit (Bld) [Volume fraction] 40.2 % Critically low 42.0-54.0 [facility] Comment on above: Performed By: #### A MM #### [facility] [address] [place] [address] Dr. Nilay Gibbs Hemoglobin (Bld) [Mass/Vol] 13.7 g/dL Critically low 14.0-18.0 [facility] Comment on above: Performed By: #### A MM #### [facility] [address] [place] [address] Dr. Nilay Gibbs IG # 0.01 10e3/ul Normal 0.00-0.03 [facility] Comment on above: Performed By: #### A MM #### [facility] [address] [place] [address] Dr. Nilay Gibbs IG % 0.2 % Normal 0.0-0.5 [facility] Comment on above: Performed By: #### A MM #### [facility] [address] [place] [address] Dr. Nilay Gibbs LYMPH # 2.1 103/ul Normal 1.2-3.8 [facility] Comment on above: Performed By: #### A MM #### [facility] [address] [place] [address] Dr. Nilay Gibbs Lymphocytes/100 WBC (Bld) 37.1 % Normal 20.5-60.0 [facility] Comment on above: Performed By: #### A MM #### [facility] [address] [place] [address] Dr. Nilay Gibbs MANUAL DIFF REQ NO Normal [facility] Comment on above: Performed By: #### A MM #### [facility] [address] [place] [address] Dr. Nilay Gibbs MCH (RBC) [Entitic mass] 30.1 pg Normal 25.9-34.0 [facility] Comment on above: Performed By: #### A MM #### [facility] [address] [place] [address] Dr. Nilay Gibbs MCHC (RBC) [Mass/Vol] 34.1 g/dL Normal 29.9-35.2 [facility] Comment on above: Performed By: #### A MM #### [facility] [address] [place] [address] Dr. Nilay Gibbs MCV (RBC) [Entitic vol] 88.4 fL Normal 80.0-94.0 [facility] Comment on above: Performed By: #### A MM #### [facility] [address] [place] [address] Dr. Nilay Gibbs MONO # 0.4 103/ul Normal 0.3-0.8 [facility] Comment on above: Performed By: #### A MM #### [facility] [address] [place] [address] Dr. Nilay Gibbs Monocytes/100 WBC (Bld) 7.2 % Normal 1.7-12.0 [facility] Comment on above: Performed By: #### A MM #### [facility] [address] [place] [address] Dr. Nilay Gibbs NEUT # 3.1 103/ul Normal 1.4-6.5 [facility] Comment on above: Performed By: #### A MM #### [facility] [address] [place] [address] Dr. Nilay Gibbs Neutrophils/100 WBC (Bld) 53.4 % Normal 43.0-75.0 [facility] Comment on above: Performed By: #### A MM #### [facility] [address] [place] [address] Dr. Nilay Gibbs Platelet mean volume (Bld) [Entitic vol] 10.3 fL Normal 9.5-13.5 [facility] Comment on above: Performed By: #### A MM #### [facility] [address] [place] [address] Dr. Nilay Gibbs PLT 254 103/ul Normal 150-450 [facility] Comment on above: Performed By: #### A MM #### [facility] [address] [place] [address] Dr. Nilay Gibbs RBC 4.55 106/ul Critically low 4.70-6.10 [facility] Comment on above: Performed By: #### A MM #### [facility] [address] [place] [address] Dr. Nilay Gibbs WBC 5.7 103/ul Normal 4.0-11.0 [facility] Comment on above: Performed By: #### A MM #### [facility] [address] [place] [address] HEAD WO CONon [...] by: RUFINA MARIN Date: 2021-09-27 10:27 Normal [facility] CTA HEAD WO W CONon 09-28-19 [...] by: NEL KING Date: 2021-09-27 12:19 Normal [facility] CTA NECK WO W CONon 09-28-19 CTA [...] NEL KING Date: 2021-09-27 12:06 Normal [facility] Creatine kinase [Enzymatic a ctivity/volume] in Serum or PlasmaOrdered By: Kristal Goldberg on 09-27-2021 CK [Catalytic activity/Vol] 181 U/L 22-269 [facility] Creatinine and Glomerular fi ltration rate.predicted panel (S/P/Bld)Ordered By: Kristal Goldberg on 09-27-2021 Creatinine [Mass/Vol] 1.36 mg/dL 0.64-1.27 [facility] Eosinophils Auto (Bld) [#/Vo l]Ordered By: Kristal Goldberg on 09-27-2021 Eosinophils (Bld) [#/Vol] 0.1 10*3/uL 0.0-0.45 [facility] Eosinophils/100 WBC Auto (Bl d)Ordered By: Kristal Goldberg on 09-27-2021 Eosinophils/100 WBC (Bld) 1.2 % . [facility] Erythrocyte distribution wid th Auto (RBC) [Ratio]Ordered By: Kristal Goldberg on 09-27-2021 Erythrocyte distribution width (RBC) [Ratio] 14.5 % 12.0-14.8 [facility] Estimated glomerular filtrat ion rate (GFR) non- AmericanOrdered By: Kristal Goldberg on 09-27-2021 GFR/1.73 sq M.predicted among non-blacks MDRD (S/P/Bld) [Vol rate/Area] > 60 mL/Min [facility] Globulin Calc (S) [Mass/Vol] Ordered By: Kristal Goldberg on 09-27-2021 Globulin (S) [Mass/Vol] 2.4 g/dL [facility] Hematocrit Auto (Bld) [Volum e fraction]Ordered By: Kristal Goldberg on 09-27-2021 Hematocrit (Bld) [Volume fraction] 40.8 % 38.8-50.0 [facility] Ketones Auto test strip (U) [Mass/Vol]Ordered By: Kristal Goldberg on 09-27-2021 Ketones (U) [Mass/Vol] Negative Negative [facility] - CoagulationOrde red By: Kristal Goldberg on 09-27-2021 PT Coag (PPP) [Time] 11.8 s 9.0-12.9 [facility] - Hematology and Cell countsOrdered By: Kristal Goldberg on 09-27-2021 Nucleated RBC/100 WBC (Bld) [Ratio] 0.0 % 0-0.5 [facility] Lymphocytes Auto (Bld) [#/Vo l]Ordered By: Kristal Goldberg on 09-27-2021 Lymphocytes (Bld) [#/Vol] 1.8 10*3/uL 1.00-4.8 [facility] Lymphocytes/100 WBC Auto (Bl d)Ordered By: Kristal Goldberg on 09-27-2021 Lymphocytes/100 WBC (Bld) 31.2 % . [facility] MCH Auto (RBC) [Entitic mass ]Ordered By: Kristal Goldberg on 09-27-2021 MCH (RBC) [Entitic mass] 30.1 pg 27.5-35.2 [facility] MCHC Auto (RBC) [Mass/Vol]Or dered By: Kristal Goldberg on 09-27-2021 MCHC (RBC) [Mass/Vol] 33.4 g/dL 32.5-35.6 [facility] MCV Auto (RBC) [Entitic vol] Ordered By: Kristal Goldberg on 09-27-2021 MCV (RBC) [Entitic vol] 90.3 fL 83.5-101 [facility] Monocytes Auto (Bld) [#/Vol] Ordered By: Kristal Goldberg on 09-27-2021 Monocytes (Bld) [#/Vol] 0.3 10*3/uL 0.0-0.8 [facility] Monocytes/100 WBC Auto (Bld) Ordered By: Kristal Goldberg on 09-27-2021 Monocytes/100 WBC (Bld) 6.0 % . [facility] Neutrophils Auto (Bld) [#/Vo l]Ordered By: Kristal Goldberg on 09-27-2021 Neutrophils (Bld) [#/Vol] 3.5 10*3/uL 1.8-7.7 [facility] Neutrophils/100 WBC Auto (Bl d)Ordered By: Kristal Goldberg on 09-27-2021 Neutrophils/100 WBC (Bld) 61.3 % . [facility] No Panel InformationOrdered By: Kristal Goldberg on 09-27-2021 Estimated GFR () > 60 mL/Min [facility] Comment on above: GFR estimated refere nce range: According to KDOQI guidelines, <60 ml/min/1.73m2 is sufficient to diagnose a patient with chronic kidney disease. Pharmacy Creatinine Clearance (Chem 94.06 [facility] PROF CHEM 8 (BAS METB)on Anion gap [Moles/Vol] 10.0 mmol/L Normal [facility] Comment on above: Performed By: #### C MP #### [facility] [address] [place] [address] [address] Nilay Gibbs Calcium [Mass/Vol] 9.4 mg/dL Normal 8.5-10.1 [facility] Comment on above: Performed By: #### C MP #### [facility] [address] [place] [address] Dr. Nilay Gibbs Chloride [Moles/Vol] 103 mmol/L Normal 98-107 [facility] Comment on above: Performed By: #### C MP #### [facility] [address] [place] [address] Dr. Nilay Gibbs CO2 [Moles/Vol] 27.6 mmol/L Normal 21.0-32.0 [facility] Comment on above: Performed By: #### C MP #### [facility] [address] [place] [address] Dr. Nilay Gibbs Creatinine [Mass/Vol] 1.39 mg/dL Critically high 0.70-1.30 [facility] Comment on above: Performed By: #### C MP #### [facility] [address] [place] [address] Dr. Nilay Gibbs EGFR-AF NIGERIAN >60 Normal >=60 [facility] Comment on above: Performed By: #### C MP #### [facility] [address] [place] [address] [address] Nilay Gibbs EGFR-NON AF NIGERIAN 60 mL/min/1.73m2 Normal >=60 [facility] Comment on above: Performed By: #### C MP #### [facility] [address] [place] [address] Dr. Nilay Gibbs Glucose [Mass/Vol] 115 mg/dL Critically high 74-106 [facility] Comment on above: Performed By: #### C MP #### [facility] [address] [place] [address] [address] Nilay Gibbs Potassium [Moles/Vol] 3.6 mmol/L Normal 3.5-5.1 [facility] Comment on above: Performed By: #### C MP #### [facility] [address] [place] [address] [address] Nilay Gibbs Sodium [Moles/Vol] 137 mmol/L Normal 136-145 [facility] Comment on above: Performed By: #### C MP #### [facility] [address] [place] [address] [address] Nilay Gibbs Urea nitrogen [Mass/Vol] 17.0 mg/dL Normal 7.0-18.0 [facility] Comment on above: Performed By: #### C MP #### [facility] [address] [place] [address] Dr. Nilay Gibbs Urea nitrogen/Creatinine [Mass ratio] 12.2 mg/mg Normal [facility] [facility] Comment on above: Performed By: #### C MP #### [facility] [address] [address] [address] Nilay Gibbs PROTIMEon 09-27-2021 INR Coag (PPP) [Relative time] 0.99 {INR} Normal [facility] Comment on above: Performed By: #### P T, PTT #### [facility] [address] [place] [address] Dr. Nilay Gibbs INR GUIDELINES SEE BELOW Normal [facility] Comment on above: Result Comment: PETRONA RED INR: 2.0 - 3.0 CONDITIONS NOT LISTED BELOW 2.5 - 3.5 FOR PROSTHETIC HEART VALVE REPLACEMENT 2.5 - 3.5 RECURRENT THROMBOSIS Performed By: #### P T, PTT #### [facility] [address] [address] [address] Nilay Gibbs PT Coag (PPP) [Time] 10.7 s Normal 9.0-11.6 [facility] Comment on above: Performed By: #### P T, PTT #### [facility] [address] [place], [place] [id number] Dr. Nilay Gibbs PTTon 09-27-2021 aPTT Coag (Bld) [Time] 29.1 s Normal 22.3-36.2 [facility] Comment on above: Performed By: #### P T, PTT #### [facility] [address] [place] [address] Dr. Nilay Gibbs Platelet mean volume Auto (B ld) [Entitic vol]Ordered By: Kristal Goldberg on 09-27-2021 Platelet mean volume (Bld) [Entitic vol] 8.7 fL 6.6-10.1 [facility] Platelet poor plasma interna tional normalized ratio (INR) by coagulation assay (relatOrdered By: Kristal Goldberg on 09-27-2021 INR Coag (PPP) [Relative time] 1.1 {INR} [facility] Comment on above: INR Therapeutic Rang [...] 09-27-2021 Platelets (Bld) [#/Vol] 240 10*3/uL 150-450 [facility] Protein Auto test strip (U) [Mass/Vol]Ordered By: Kristal Goldberg on 09-27-2021 Protein (U) [Mass/Vol] Negative Negative [facility] Protein [Mass/volume] in Ser um or PlasmaOrdered By: Kristal Goldberg on 09-27-2021 Protein [Mass/Vol] 6.5 g/dL 6.1-7.9 [facility] RBC Auto (Bld) [#/Vol]Ordere d By: Kristal Goldberg on 09-27-2021 RBC (Bld) [#/Vol] 4.52 10*6/uL 3.90-5.60 [facility] Serum or plasma alanine marquez otransferase measurement without P-5'-P (enzymatic activiOrdered By: Kristal Goldberg on 09-27-2021 ALT No additional P-5'-P [Catalytic activity/Vol] 22 U/L 10-60 [facility] Serum or plasma albumin/glob ulin mass ratioOrdered By: Kristal Goldberg on 09-27-2021 Albumin/Globulin [Mass ratio] 1.7 {ratio} [facility] Serum or plasma alkaline kimi sphatase measurement (enzymatic activity/volume)Ordered By: Kristal Goldberg on 09-27-2021 ALP [Catalytic activity/Vol] 72 U/L 32-92 [facility] Serum or plasma aspartate am inotransferase measurement (enzymatic activity/volume)Ordered By: Kristal Goldberg on 09-27-2021 AST [Catalytic activity/Vol] 24 U/L 10-42 [facility] Serum or plasma calcium isabel urement (mass/volume)Ordered By: Kristal Goldberg on 09-27-2021 Calcium [Mass/Vol] 9.6 mg/dL 8.2-10.2 [facility] Serum or plasma chloride airam surement (moles/volume)Ordered By: Kristal Goldberg on 09-27-2021 Chloride [Moles/Vol] 98 mmol/L 95-114 [facility] Serum or plasma creatine kin ase MB (CKMB)/total creatine kinase (CK) ratio by calculaOrdered By: Kristal Goldberg on 09-27-2021 CK.MB Calc [Catalytic fraction] 1.7 % 0.00-2.50 [facility] Serum or plasma creatine kin ase MB measurement (mass/volume)Ordered By: Kristal Goldberg on 09-27-2021 CK.MB [Mass/Vol] 3.1 ng/mL 0.6-6.3 [facility] Serum or plasma glucose isabel urement (mass/volume)Ordered By: Kristal Goldberg on 09-27-2021 Glucose [Mass/Vol] 94 mg/dL 70-100 [facility] Comment on above: ADA recommended refe [...] on 09-27-2021 Potassium [Moles/Vol] 3.9 mmol/L 3.5-5.1 [facility] Serum or plasma sodium measu rement (moles/volume)Ordered By: Kristal Goldberg on 09-27-2021 Sodium [Moles/Vol] 135 mmol/L 136-146 [facility] Serum or plasma total biliru bin measurement (mass/volume)Ordered By: Kristal Goldberg on 09-27-2021 Bilirubin [Mass/Vol] 0.8 mg/dL 0.3-1.2 [facility] Serum or plasma total carbon dioxide measurement (moles/volume)Ordered By: Kristal Goldberg on 09-27-2021 CO2 [Moles/Vol] 24.8 mmol/L 22.0-30.0 [facility] Serum or plasma urea nitroge n measurement (mass/volume)Ordered By: Kristal Goldberg on 09-27-2021 Urea nitrogen [Mass/Vol] 13 mg/dL 9-23 [facility] TROPONIN, HIGH SENSITIVITYon 09-27-2021 HSTROP 4.5 pg/mL Normal 4.0-76.1 [facility] Comment on above: Result Comment: CUT- OFF POINTS HAVE BEEN ESTABLISHED BASED ON THE FOURTH UNIVERSAL DEFINITIONS OF MYOCARDIAL INFARCTION. THE UPPER REFERENCE LIMIT (URL) OF TROPONIN, DEFINED THE 99TH PERCENTILE OF cTnI DISTRIBUTION IN A REFERENCE POPULATION, HAS BEEN CONFIRMED THE DECISION THRESHOLD FOR VA DIAGNOSIS. Performed By: #### C #### [facility] [address] [address] [address] Nilay Gibbs Troponin I.cardiac [Mass/vol ume] in Serum or Plasma by High sensitivity methodOrdered By: Kristal Goldberg on 09-27-2021 Troponin I.cardiac High sensitivity method [Mass/Vol] < 3 pg/mL 0-20 [facility] Urine appearanceOrdered By: Kristal Goldberg on 09-27-2021 Appearance (U) Clear Clear [facility] Urine colorOrdered By: Aurora Goldberg on 09-27-2021 Color (U) Yellow Yellow [facility] Urine glucose measurement by automated test strip (mass/volume)Ordered By: Kristal Goldberg on 09-27-2021 Glucose Auto test strip (U) [Mass/Vol] Normal mg/dL Normal [facility] Urine hemoglobin detection b y automated test stripOrdered By: Kristal Goldberg on 09-27-2021 Hemoglobin Auto test strip Ql (U) Negative Negative [facility] Urine leukocyte esterase det ection by automated test stripOrdered By: Kristal Goldberg on 09-27-2021 Leukocyte esterase Auto test strip Ql (U) Negative Negative [facility] Urine nitrite detection by a utomated test stripOrdered By: Kristal Goldberg on 09-27-2021 Nitrite Auto test strip Ql (U) Negative Negative [facility] Urobilinogen Auto test strip (U) [Mass/Vol]Ordered By: Kristal Goldberg on 09-27-2021 Urobilinogen (U) [Mass/Vol] Normal mg/dL Normal [facility] pH Auto test strip (U)Ordere d By: Kristal Goldberg on 09-27-2021 pH (U) 1.005 [pH] 1.001-1.030 [facility] pH (U) 5.5 [pH] 5.0-9.0 [facility] XR SHOULDER 2V AP/TRUE AP LT [...] Mild glenohumeral narrowing IMPRESSION: Mild glenohumeral arthrosis Funding Analyst: [facility] Transcribe Date/Time: Nov 29 2020 10:37A Dictated by : ANNE VALDEZ MD This examination was interpreted and the report reviewed and electronically signed by: ANNE VALDEZ MD on Nov 29 2020 10:37AM EST [id number] [facility] US KIDNEY/BLADDERon 08-20-19 US KIDNEY/BLADDER * * *Final Report* * * DATE OF EXAM: Aug 19 2020 12:47PM [facility] 1055 - US KIDNEY/BLADDER / [...] NORMAL SONOGRAPHIC APPEARANCE OF KIDNEYS AND BLADDER. Funding Analyst: [employer] Transcribe Date/Time: Aug 19 2020 12:49P Dictated by : FLORENTIN PATEL MD This examination was interpreted and the report reviewed and electronically signed by: FLORENTIN PATEL MD on Aug 19 2020 12:49PM EST [id number] [facility] XR HAND 3V PA/LAT/OBL BILon 04-02-2020 [...] than left hand and superimposed degenerative change. Funding Analyst: [employer] Transcribe Date/Time: Apr 02 2020 10:18A Dictated by : EDDA PAUL MD This examination was interpreted and the report reviewed and electronically signed by: EDDA PAUL MD on Apr 02 2020 10:25AM EST [id number] Normal [facility] CT LUMBAR SPINE WO CONTRASTo n 07-12-2018 [...] 190.5 cm MD Leydi Aceves Work Phone: [facility] 08-22-2023 12:40-0400 Body mass index (BMI) [Ratio] 31.6 kg/m2 MD Leydi Aceves Work Phone: [facility] 08-22-2023 12:40-0400 Body temperature 98.6 [degF] MD Leydi Aceves Work Phone: [facility] 08-22-2023 12:40-0400 Body weight 114.81 kg MD Leydi Aceves Work Phone: [facility] 08-22-2023 12:40-0400 Heart rate 84 /min MD Leydi Aceves Work Phone: [facility] 08-22-2023 12:40-0400 Respiratory rate 18 /min MD Leydi Aceves Work Phone: [facility] 08-22-2023 12:40-0400 SaO2% (BldA) [Mass fraction] 97 % MD Leydi Aceves Work Phone: [facility] 06-24-2023 14:34-0400 Body mass index (BMI) [Ratio] 29.92 kg/m2 Delmy Boyle MD Work Phone: [facility] 06-24-2023 14:34-0400 Body weight 105.69 kg Delmy Boyle MD Work Phone: [facility] 06-24-2023 14:34-0400 Diastolic blood pressure 87 mm[Hg] Delmy Boyle MD Work Phone: [facility] 06-24-2023 14:34-0400 Heart rate 89 /min Delmy Boyle MD Work Phone: [facility] 06-24-2023 14:34-0400 Respiratory rate 18 /min Delmy Boyle MD Work Phone: [facility] 06-24-2023 14:34-0400 SaO2% (BldA) [Mass fraction] 100 % Delmy Boyle MD Work Phone: [facility] 06-24-2023 14:34-0400 Systolic blood pressure 124 mm[Hg] Delmy Boyle MD Work Phone: [facility] 01-01-2022 11:34-0400 Body weight 99.79 kg Dlemy Boyle MD Work Phone: [facility] 01-01-2022 11:34-0400 Diastolic blood pressure 65 mm[Hg] Delmy Boyle MD Work Phone: [facility] 01-01-2022 11:34-0400 Heart rate 65 /min Delmy Boyle MD Work Phone: [facility] 01-01-2022 11:34-0400 Systolic blood pressure 102 mm[Hg] Delmy Boyle MD Work Phone: [facility] 12-10-2021 15:30-0400 Diastolic blood pressure 71 mm[Hg] MD Leydi Aceves Work Phone: [facility] 12-10-2021 15:30-0400 Heart rate 70 /min MD Leydi Aceves Work Phone: [facility] 12-10-2021 15:30-0400 Respiratory rate 16 /min MD Leydi Aceves Work Phone: [facility] 12-10-2021 15:30-0400 SaO2% (BldA) [Mass fraction] 98 % MD Leydi Aceves Work Phone: [facility] 12-10-2021 15:30-0400 Systolic blood pressure 113 mm[Hg] MD Leydi Aceves Work Phone: [facility] 12-10-2021 07:30-0400 Body temperature 98 [degF] MD Leydi Aceves Work Phone: [facility] 12-08-2021 15:45-0400 Body height 190.5 cm MD Leydi Aceves Work Phone: [facility] 12-08-2021 08:56-0400 Body weight 99.79 kg MD Leydi Aceves Work Phone: [facility] 09-27-2021 21:38-0400 Heart rate 68 /min MD Leydi Aceves Work Phone: [facility] 09-27-2021 21:30-0400 Diastolic blood pressure 79 mm[Hg] MD Leydi Aceves Work Phone: [facility] 09-27-2021 21:30-0400 Respiratory rate 20 /min MD Leydi Aceves Work Phone: [facility] 09-27-2021 21:30-0400 SaO2% (BldA) [Mass fraction] 100 % MD Leydi Aceves Work Phone: [facility] 09-27-2021 21:30-0400 Systolic blood pressure 135 mm[Hg] MD Leydi Aceves Work Phone: [facility] 09-27-2021 18:31-0400 Body height 190.5 cm MD Leydi Aceves Work Phone: [facility] 09-27-2021 18:31-0400 Body temperature 98 [degF] MD Leydi Aceves Work Phone: [facility] 09-27-2021 18:31-0400 Body weight 99.79 kg MD Leydi Aceves Work Phone: [facility] Encounters Encounter Date Encounter Type Care Provider Facility Start: 08-22-2023 End: 08-22-2023 ambulatory MD Leydi Aceves Work Phone: [facility] Work Phone: Start: 08-22-2023 End: 08-22-2023 Patient encounter procedure MD Leydi Aceves Work Phone: [facility] Work Phone: Start: 08-16-2023 Refill Delmy newton MD Work Phone: Rheumatology Comment on above: Refill Request Start: 08-03-2023 Registered Recurring MD Leydi Aceves Work Phone: [facility] Start: 08-03-2023 ambulatory Nicola Castellon acility:[facility] Start: 07-06-2023 ambulatory Delmy newton MD Work Phone: Rheumatology Start: 07-06-2023 Patient encounter procedure Demly Boyle MD Work Phone: Rheumatology Comment on above: Flare up Start: 07-05-2023 Refill Delmy newton MD Work Phone: Rheumatology Comment on above: Refill Request Start: 06-24-2023 End: 06-24-2023 ambulatory LEYDI ACEVES Facility:[facility] Start: 06-24-2023 End: 06-24-2023 Patient encounter procedure Delmy Boyle MD Work Phone: Rheumatology Comment on above: Chronic tophaceous g out (Primary Dx); Encounter for long-term (current) use of medications; Stage 3 chronic kidney disease, unspecified whether stage 3a or 3b CKD (HCC); Idiopathic chronic gout of multiple sites with tophus Start: 06-21-2023 End: 06-21-2023 ambulatory DELMY BOYLE Facility:[facility] Start: 06-10-2023 End: 06-10-2023 ambulatory RUGEN M KETAN Not Available Start: 05-18-2023 End: 05-18-2023 ambulatory RUGEN M KETAN Not Available Start: 05-09-2023 End: 05-12-2023 ambulatory Nicola Leyva Facility:[facility] Start: 05-03-2023 End: 05-03-2023 ambulatory RUGEN M KETAN Not Available Start: 04-05-2023 Refill Leydi Barlowa Keena Mansfield Work Phone: [facility] Start: 03-08-2023 End: 03-08-2023 ambulatory DELMY BOYLE Facility:[facility] Start: 03-04-2023 End: 03-04-2023 ambulatory DELMY BOYLE Facility:[facility] Start: 02-24-2023 End: 02-24-2023 Emergency department patient visit Ladi Huber Facility:[facility] Start: 02-19-2023 End: 02-20-2023 ambulatory KAYCE Wilson [facility] Start: 01-12-2023 End: 01-12-2023 ambulatory MIRI REES Not Available Start: 11-13-2022 ambulatory Delmy newton MD Work Phone: Rheumatology Comment on above: Prednisone Start: 11-13-2022 E-mail encounter ranulfo m caregiver Delmy Boyle MD Work Phone: [facility] Start: 11-13-2022 Telephone encounter Delmy luna MD Work Phone: [facility] Comment on above: Patient Request Start: 08-14-2022 End: 08-14-2022 ambulatory DELMY BOYLE Facility:[facility] Start: 08-12-2022 End: 08-13-2022 ambulatory DELMY BOYLE Facility:[facility] Start: 07-24-2022 End: 07-24-2022 ambulatory [...] unspecified whether stage 3a or 3b CKD ([facility]) Start: 12-19-2021 Refill Delmy newton MD Work Phone: Rheumatology Comment on above: Refill Request Start: 12-07-2021 End: 12-10-2021 Evaluation and management of inpatient MD Leydi Aceves Work Phone: [facility] Start: 12-06-2021 End: 12-07-[address] LEYDI ACEVES Facility:[facility] Start: 10-19-2021 End: 10-19-2021 ambulatory ZHAO MAURER . Facility:[facility] Start: 09-27-2021 End: 09-27-2021 Emergency department patient visit MD Leydi Aceves Work Phone: [facility] Start: 09-27-2021 End: 09-27-2021 ambulatory [...] Detail Author Start: 06-01-2026 Urine microalbumin profile [facility] Start: 03-04-2024 Creatinine measurement Serum Creatinine [facility] Start: 01-04-2024 End: 01-04-2024 Patient encounter procedure 01/04/2024 8:20 AM EST Office Visit Rheumatology [address] [place] [address] [place] [address] [place] [address] FU 6-7 MON WITH MD Rheumatology Comment on above: FU 6-7 MON WITH MD Start: 10-31-2023 Influenza vaccination Influenza Vaccine (Season Ended) [facility] Start: 09-24-2023 End: 09-24-2023 Patient encounter procedure 09/24/2023 8:00 AM EDT Office Visit Rheumatology [address] [place] [address] Kelly Martell APRN.[employer] [address] [facility] [place] [address] FU 3-4 MON WITH STEFANIA Rheumatology Comment on above: FU 3-4 MON WITH STEFANIA Start: 08-29-2023 Influenza vaccination Influenza Vaccine (#1) [facility] Comment on above: Postponed from 10/30/2022 (Other Patient Reasons) Start: 08-13-2023 Serum Creatinine Serum Creatinine [facility] Start: 03-01-2023 Behavioral Health Screening Behavioral Health Screening [facility] Start: 01-01-2023 BP CONTROLLED (<130/80) BP CONTROLLED (<130/80) [facility] Start: 10-30-2022 Covid-19 Vaccine ( season) Covid-19 Vaccine ( season) [facility] Start: 10-30-[address] [facility] Start: 07-13-2022 End: 09-12-2022 Alanine aminotransferase [Enzymatic activity/volume] in Serum or Plasma ALT/SGPT Lab Routine Idiopathic chronic gout of multiple sites with [facility] Encounter for long-term (current) use of medications Expected: 07/13/2022 (Approximate), Expires: 09/12/2022 [facility] Work Phone: Comment on above: Expected: 07/13/2022 (Approximate), Expi res: 09/12/2022 Start: 07-13-2022 End: 09-12-2022 Albumin [Mass/volume] in Serum or Plasma ALBUMIN BLD Lab 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 Encounter for long-term (current) use of medications Expected: 07/13/2022 (Approximate), Expires: 09/12/2022 [facility] Work Phone: Comment on above: Expected: 07/13/2022 (Approximate), Expi res: 09/12/2022 Start: 07-13-2022 End: 09-12-2022 Aspartate aminotransferase [Enzymatic activity/volume] in Serum or Plasma AST/SGOT BLD Lab 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 Encounter for long-term (current) use of medications Expected: 07/13/2022 (Approximate), Expires: 09/12/2022 [facility] Work Phone: Comment on above: Expected: 07/13/2022 (Approximate), Expi res: 09/12/2022 Start: 07-13-2022 End: 09-12-2022 C reactive protein [Mass/volume] in Serum or Plasma C-REACTIVE PROTEIN (CRP) Lab 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 Encounter for long-term (current) use of medications Expected: 07/13/2022 (Approximate), Expires: 09/12/2022 [facility] Work Phone: Comment on above: Expected: 07/13/2022 (Approximate), Expi res: 09/12/2022 Start: 07-13-2022 End: 09-12-2022 CBC W Auto Differential panel - Blood CBC + DIFF Lab 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 Encounter for long-term (current) use of medications Expected: 07/13/2022 (Approximate), Expires: 09/12/2022 [facility] Work Phone: Comment on above: Expected: 07/13/2022 (Approximate), Expi res: 09/12/2022 Start: 07-13-2022 End: 09-12-2022 CREATININE BLD CREATININE BLD Lab 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 Encounter for long-term (current) use of medications Expected: 07/13/2022 (Approximate), Expires: 09/12/2022 [facility] Work Phone: Comment on above: Expected: 07/13/2022 (Approximate), Expi res: 09/12/2022 Start: 07-13-2022 End: 09-12-2022 Erythrocyte sedimentation rate SED RATE WESTERGREN Lab 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 Encounter for long-term (current) use of medications Expected: 07/13/2022 (Approximate), Expires: 09/12/2022 [facility] Work Phone: Comment on above: Expected: 07/13/2022 (Approximate), Expi res: 09/12/2022 Start: 07-13-2022 End: 09-12-2022 Urate [Mass/volume] in Serum or Plasma URIC ACID BLOOD Lab 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 Encounter for long-term (current) use of medications Expected: 07/13/2022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 (current) use of other medications Stage 3 chronic kidney disease, unspecified whether stage 3a or 3b CKD (HCC) [facility] Diagnosis 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 Diagnosis Other chronic pain- Primary [facility] Diagnosis Chronic tophaceous gout- Primary [...] with tophus (tophi) 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 Diagnosis Onset Date Resolution Status Acute pansinusitis acute [facility] Work Phone: Hospital Discharge instructions Additional Instructions Rest Apply ice to affected area Avoid electronics Follow-up with neurology on Wednesday Tylenol Motrin if needed for discomfort Return here if you develop any numbness, tingling, unilateral weakness, unsteady gait, confusion or any other concernsWestern [facility] Ctr Work Phone: Hospital Discharge instructions Additional Instructions Regular diet. 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 Expl anation Advance Directive(s) 04/25/2017 12:32 PM [...] content) DATE CREATED AUTHOR 07/23/2018 Katie Christensen [facility] DATE CREATED AUTHOR AUTHOR'S ORGANIZ ATION 11/30/2020 [facility] DATE CREATED AUTHOR AUTHOR'S ORGANIZ ATION 11/11/2021 [facility] dical Specialist DATE CREATED AUTHOR AUTHOR'S ORGANIZ ATION 08/07/2022 [facility] DATE CREATED AUTHOR AUTHOR'S ORGANIZ ATION 2023 [facility] Shultz [facility] DATE CREATED AUTHOR AUTHOR'S ORGANIZ ATION 02/26/2023 Yovani Coughlin [facility] DATE CREATED AUTHOR AUTHOR'S ORGANIZ ATION 06/12/2023 [facility] dical Specialists EPIC DATE CREATED AUTHOR AUTHOR'S ORGANIZ ATION 06/26/2023 [facility] DATE CREATED AUTHOR AUTHOR'S ORGANIZ ATION 09/13/2023 [facility] Source Comments (unrecognize d section and content) In the event this informatio n is protected by the Federal Confidentiality of Alcohol and Drug Abuse Patient Records regulations: The Federal rules restrict any use of the information to criminally investigate or prosecute any alcohol or drug abuse patient.[facility] the event this information is protected by the Federal Confidentiality of Alcohol and Drug Abuse Patient Records regulations: The Federal rules restrict any use of the information to criminally investigate or prosecute any alcohol or drug abuse patient.[facility] the event this information is protected by the Federal Confidentiality of Alcohol and Drug Abuse Patient Records regulations: The Federal rules restrict any use of the information to criminally investigate or prosecute any alcohol or drug abuse patient.[facility] the event this information is protected by the Federal Confidentiality of Alcohol and Drug Abuse Patient Records regulations: The Federal rules restrict any use of the information to criminally investigate or prosecute any alcohol or drug abuse patient.[facility] the event this information is protected by the Federal Confidentiality of Alcohol and Drug Abuse Patient Records regulations: The Federal rules restrict any use of the information to criminally investigate or prosecute any alcohol or drug abuse patient.[facility] the event this information is protected by the Federal Confidentiality of Alcohol and Drug Abuse Patient Records regulations: The Federal rules restrict any use of the information to criminally investigate or prosecute any alcohol or drug abuse patient.[facility] the event this information is protected by the Federal Confidentiality of Alcohol and Drug Abuse Patient Records regulations: The Federal rules restrict any use of the information to criminally investigate or prosecute any alcohol or drug abuse patient.[facility] the event this information is protected by the Federal Confidentiality of Alcohol and Drug Abuse Patient Records regulations: The Federal rules restrict any use of the information to criminally investigate or prosecute any alcohol or drug abuse patient.[facility] the event this information is protected by the Federal Confidentiality of Alcohol and Drug Abuse Patient Records regulations: The Federal rules restrict any use of the information to criminally investigate or prosecute any alcohol or drug abuse patient.[facility] the event this information is protected by the Federal Confidentiality of Alcohol and Drug Abuse Patient Records regulations: The Federal rules restrict any use of the information to criminally investigate or prosecute any alcohol or drug abuse patient.[facility] the event this information is protected by the Federal Confidentiality of Alcohol and Drug Abuse Patient Records regulations: The Federal rules restrict any use of the information to criminally investigate or prosecute any alcohol or drug abuse patient.[facility] Hospital[facility] the event this information is protected by the Federal Confidentiality of Alcohol and Drug Abuse Patient Records regulations: The Federal rules restrict any use of the information to criminally investigate or prosecute any alcohol or drug abuse patient.[facility] Care Teams (unrecognized sec tion and [...] August 22, 2023 End: August 22, 2023 Japanese Tutor Relationship Specialty Start Date End Date Leydi Aceves PCP - General Family Practice 01/07/15 Team Status: Inactive Member Role Status Dates Leydi Aceves MD Primary Care Provider Active Juvenal Smith MD Emergency Provider Active Team Status: Inactive Member Role Status Dates Leydi Aceves MD Primary Care Provider Active Adam Young MD Admit Provider, Attending Provider Active Japanese Tutor Relationship Specialty Start Date End Date Leydi Aceves PCP - General Family Medicine 01/07/15 Japanese Tutor Relationship Specialty Start Date End Date Leydi Acevescris PCP - General [facility] Medicine 01/07/15 Japanese Tutor Relationship Specialty Start Date End Date Leydi Acevescris PCP - General [facility] 01/07/15 Japanese Tutor Relationship Specialty Start Date End Date Ketan Leydi Temple PCP - General [facility] Medicine 01/07/15 Japanese Tutor Relationship Specialty Start Date End Date Leydi Aceves MD PCP - [facility] 01/07/15 Japanese Tutor Relationship Specialty Start Date End Date Leydi Aceves MD PCP - General [facility] 01/07/15 Japanese Tutor Relationship Specialty Start Date End Date Leydi Aceves MD [address] [place] [address] PCP - [facility] 07/29/22 Leydi Aceves MD [address] [place] [address] PCP - [facility] 05/30/22 Japanese Tutor Relationship Specialty Start Date End Date Leydi Aceves MD [address] [place] [address] PCP - [facility] 07/29/22 Leydi Aceves MD [address] [place] [address] [facility] 4/1/23 Japanese Tutor Relationship Specialty Start Date End Date Washburn, Rugen Mabalay, MD PCP - General Family Medicine 01/07/15 Japanese Tutor Relationship Specialty Start Date End Date Leydi Aceves MD PCP - General Family Medicine 01/07/15 Japanese Tutor Relationship Specialty Start Date End Date Leydi [...] BE BASED ON THE PRIMARY CLINICAL RECORDS. [employer] provides no warranty or guarantee of the accuracy or completeness of information in this document.
--- NOTE | 2023-10-08 19:20 | ED_ITS ---
HPI HPI - General Adult General Chief complaint: Upper Respiratory Infection Stated complaint: arthritis flare Time Seen by Provider: 10/08/23 19:01 Source: patient Mode of arrival: walk-in Limitations: no limitations History of Present Illness HPI narrative: 33-year-old male with a history of RA presents here with a chief complaint RA flare and also upper respiratory infection. Says sore throat cough congestion. States it hurts to swallow. Denies any fevers. Not appear toxic. Patient denies any other known sick contacts. He secretions well no sign of peritonsillar abscess on initial exam Related Data Home Medications ?Medication ?Instructions ?Recorded ?Confirmed amlodipine 10 mg tablet 10 mg PO QDAY 08/31/22 10/08/23 celecoxib 100 mg capsule 100 mg PO DAILY PRN RA flare 08/31/22 07/03/23 clonidine HCl 0.1 mg tablet 0.1 mg PO BID 08/31/22 10/08/23 colchicine 0.6 mg tablet 0.6 mg PO .every other 08/31/22 10/08/23 quetiapine 50 mg tablet See Rx Instructions PO .hs 08/31/22 10/08/23 tramadol 50 mg tablet 50 mg PO Q6H PRN pain 08/31/22 10/08/23 gabapentin 300 mg capsule 300 mg PO TID 02/15/23 10/08/23 (Neurontin) allopurinol 100 mg tablet 100 mg PO .QD 06/03/23 10/08/23 allopurinol 300 mg tablet 300 mg PO BID 06/03/23 10/08/23 Previous Rx's ?Medication ?Instructions ?Recorded prednisone 10 mg tablet 10 mg PO DAILY #42 tabs 07/03/23 prednisone 10 mg tablet See Rx Instructions .Route 08/31/23 .COMPLEX #30 tabs prednisone 20 mg tablet 20 mg PO BID 5 days #10 tabs 10/08/23 Allergies Allergy/AdvReac Type Severity Reaction Status Date / Time No Known Drug Allergies Allergy Verified 10/08/23 19:08 Opioid HPI Opioid Management Most Recent Opioid Data: Last Pain Scale 9 10/08/23 19:29 Last ED Pain Assessment 10/08/23 19:15 Last MAR Pain Assessment 10/08/23 19:29 Last ORT Total Score 10 06/03/23 01:22 Last ORT Risk Category High Risk 06/03/23 01:22 Ur Phencyclidine Scrn Negative (NEGATIVE) 06/02/23 22:15 Review of Systems ROS Narrative All Systems are negative except as noted/marked.All systems reviewed and otherwise negative PFSH PFSH Medical History Acute hypernatremia ?E87.0 - Hyperosmolality and hypernatremia (ICD-10) Altered mental status ?R41.82 - Altered mental status, unspecified (ICD-10) Sepsis ?A41.9 - Sepsis, unspecified organism (ICD-10) Acute kidney injury ?N17.9 - Acute kidney failure, unspecified (ICD-10) MONO (generalized anxiety disorder) ?F41.1 - Generalized anxiety disorder (ICD-10) Rheumatoid arthritis ?M06.9 - Rheumatoid arthritis, unspecified (ICD-10) Benign essential hypertension ?I10 - Essential (primary) hypertension (ICD-10) Gouty arthritis ?M10.9 - Gout, unspecified (ICD-10) Acute postoperative pain of knee ?G89.18 - Other acute postprocedural pain (ICD-10) ?M25.569 - Pain in unspecified knee (ICD-10) Visit for wound check ?Z51.89 - Encounter for other specified aftercare (ICD-10) Septic prepatellar bursitis of right knee ?M71.161 - Other infective bursitis, right knee (ICD-10) Acute viral syndrome ?B34.9 - Viral infection, unspecified (ICD-10) Diarrhea ?R19.7 - Diarrhea, unspecified (ICD-10) Rheumatoid arthritis flare ?M06.9 - Rheumatoid arthritis, unspecified (ICD-10) Polyarthralgia ?M25.50 - Pain in unspecified joint (ICD-10) Rheumatoid arthritis flare ?M06.9 - Rheumatoid arthritis, unspecified (ICD-10) Weakness ?R53.1 - Weakness (ICD-10) Mild shortness of breath ?R06.02 - Shortness of breath (ICD-10) Headache ?R51.9 - Headache, unspecified (ICD-10) Polyarthralgia ?M25.50 - Pain in unspecified joint (ICD-10) Flare of rheumatoid arthritis ?M06.9 - Rheumatoid arthritis, unspecified (ICD-10) Arthralgia ?M25.50 - Pain in unspecified joint (ICD-10) Drug-seeking behavior ?Z76.5 - Malingerer [conscious simulation] (ICD-10) Surgical History (Updated 04/20/23 @ 23:12 by April Sierra RN) Total knee replacement status ?Z96.659 - Presence of unspecified artificial knee joint (ICD-10) H/O shoulder surgery ?Z98.890 - Other specified postprocedural states (ICD-10) Social History (Updated 04/20/23 @ 23:15 by April Sierra RN) Smoking status: Never smoker Nicotine containing products detail: chew tobacco Highest level of school completed/degree received: decline to answer Exam Narrative Exam Narrative: Nurses note and vital signs reviewed and patient is not hypoxic. General: The patient appears well and in no apparent distress. Patient is resting comfortably on cart. Skin: Warm, dry, no pallor noted. There is no rash noted. Head: Normocephalic, atraumatic Eye: Normal conjunctiva, no drainage, EOMI. PERRL Ears, Nose, Mouth, and Throat: oral mucosa is moist. Nares patent. Mouth without vesicles. Ear canals patent. Tm's without Erythema Cardiovascular: Regular Rate and Rhythm Respiratory: Patient is in no distress, no accessory muscle use, lungs are clear to auscultation, no wheezing, rales or rhonchi Back: non-tender, no CVA tenderness bilaterally to percussion. GI: Normal bowel sounds, no tenderness to palpation, no masses appreciated. No rebound, guarding, or rigidity noted. Musculoskeletal: The patient has no evidence of calf tenderness, no pitting edema, symmetrical pulses noted bilaterally Neurological: A&O x4, normal speech Psychiatric: Cooperative Constitutional Vital Signs, click to edit/add: Last Vital Signs Temp 98.4 F 10/08/23 19:04 Pulse 96 H 10/08/23 19:04 Resp 16 10/08/23 19:04 BP 170/90 H 10/08/23 19:04 Pulse Ox 97 10/08/23 19:04 O2 Del Method Room Air 10/08/23 19:04 Course Vital Signs Vital signs: Vital Signs Temperature 98.4 F 10/08/23 19:04 Pulse Rate 96 H 10/08/23 19:04 Respiratory Rate 16 10/08/23 19:04 Blood Pressure 170/90 H 10/08/23 19:04 Pulse Oximetry 97 10/08/23 19:04 Oxygen Delivery Method Room Air 10/08/23 19:04 Temperature 98.4 F 10/08/23 19:04 Pulse Rate 96 H 10/08/23 19:04 Respiratory Rate 16 10/08/23 19:04 Blood Pressure 170/90 H 10/08/23 19:04 Pulse Oximetry 97 10/08/23 19:04 Oxygen Delivery Method Room Air 10/08/23 19:04 Medical Decision Making [facility] Narrative Medical decision making narrative: 33-year-old male with a history of RA presents here with a chief complaint RA flare and also upper respiratory infection. Says sore throat cough congestion. States it hurts to swallow. Denies any fevers. Not appear toxic. Patient denies any other known sick contacts. He secretions well no sign of peritonsillar abscess on initial exam Sorum for his rheumatoid arthritis and flares. He was medicated here with Toradol and Decadron. Toradol for his flare and Decadron for his sore throat. Patient also be given a prescription for prednisone that he is told to start in 2 days from now to help with his flare. Encouraged to follow-up with his primary care physician. Rapid strep is negative. I did advise him that he may have COVID. He did refuse a COVID swab today. Patient told to quarantine at home until he feels better. Patient verbalized understand agrees with plan of care Differential Diagnosis Differential Diagnosis: uri, strep, covid Medical Records Medical records reviewed: Yes I reviewed the patient's medical records Lab Data Lab results reviewed: Yes I reviewed the patient's lab results Labs: Lab Results 10/08/23 Range/Units 19:07 Streptococcus Screen Negative Discharge Plan Discharge Stand Alone Forms: Portal Instructions Chief Complaint: Upper Respiratory Infection Clinical Impression: Pharyngitis, Rheumatoid arthritis flare Patient Disposition: Home, Self-Care Time of Disposition Decision: 19:35 Condition: Good Prescriptions / Home Meds: New prednisone 20 mg tablet 20 mg PO BID 5 Days Qty: 10 0RF No Action gabapentin [Neurontin] 300 mg capsule 300 mg PO TID allopurinol 100 mg tablet 100 mg PO .QD Patient Comments: TOTAL DOSE IS 400MG QD allopurinol 300 mg tablet 300 mg PO BID prednisone 10 mg tablet 10 mg PO DAILY Qty: 42 0RF Rx Instructions: Take six Tablets daily for two days. Take five tablets daily for two days. Take four tablets daily for two days. Take three tablets daily for two days. Take two tablets daily for two days. Take one tablet daily for two days. prednisone 10 mg tablet See Rx Instructions .ROUTE .COMPLEX Qty: 30 0RF Rx Instructions: 4 by mouth daily for three days then 3 by mouth daily for three days then 2 by mouth daily for three days then 1 by mouth daily for three days tramadol 50 mg tablet 50 mg PO Q6H PRN (Reason: pain) quetiapine 50 mg tablet See Rx Instructions PO .hs Patient Comments: per pt. 50mg with 25mg Rx Instructions: 75 orally HS; colchicine 0.6 mg tablet 0.6 mg PO .every other clonidine HCl 0.1 mg tablet 0.1 mg PO BID celecoxib 100 mg capsule 100 mg PO DAILY PRN (Reason: RA flare) amlodipine 10 mg tablet 10 mg PO QDAY Print Language: Tamazight Instructions: Rheumatoid Arthritis (ED), Upper Respiratory Infection (ED) Referrals: LEYDI ACEVES [Primary Care Provider] - 1 week Discharge Date/Time: 10/08/23 19:45
[2023-10-08 19:27] LABS: Internal Control Within Normal Limits; Strep A Antigen Screen Negative
[2023-10-08] MEDS: KETOROLAC TROMETHAMINE 60 MG/2 ML VIAL IM (19:29)
[2023-10-08] MEDS: DEXAMETHASONE SOD PHOS 10 MG/ML VIAL PO (19:30)
== END 2023-10-08 19:45 | disposition home or self-care (01) ==
PROVIDERS: Emergency Provider Internal Medicine; PCP Family Medicine
DX: J02.9 Acute pharyngitis, unspecified (principal); M06.9 Rheumatoid arthritis, unspecified; F17.220 Nicotine dependence, chewing tobacco, uncomplicated
CPT/HCPCS: 87070; 87880; 96372; 99284; J1100; J1885

== ENCOUNTER 2023-10-10 15:08 | Emergency (ER) | payer OTHER, SELFPAY ==
[2023-10-10 15:11] VITALS: BP 154/94; PULSE 87; TEMP 36.6; O2SAT 97; BMI 28.2
--- OUTSIDE RECORDS SUMMARY | 2023-10-10 15:17 | XMS_ITS | CCD ---
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 Software Manager: Drew Godoy MD #### FLDCT #### [facility] [address] [place] [address] Systems Software Manager: Drew Godoy MD Eosinophils/100 WBC (Bld) 0 % Normal 0 [facility] Comment on above: Performed By: #### F LCRYS #### [facility] [address] [place] [address] Systems Software Manager: Krish Abdi MD [facility] [address] [place] [address] Systems Software Manager: Drew Godoy MD #### FLDCT #### [facility] [address] [place] [address] Systems Software Manager: Drew Godoy MD Lymphocytes/100 WBC (Bld) 10 % [facility] Comment on above: Performed By: #### F LCRYS #### [facility] [address] [place] [address] Systems Software Manager: Krish Abdi MD [facility] [address] [place] [address] Systems Software Manager: Drew Godoy MD #### FLDCT #### [facility] [address] [place] [address] Systems Software Manager: Drew Godoy MD Orange/Macrophage 0 % [facility] Comment on above: Performed By: #### F LCRYS #### [facility] [address] [place] [address] Systems Software Manager: Krish Abdi MD [facility] [address] [place] [address] Systems Software Manager: Drew Godoy MD #### FLDCT #### [facility] [address] [place] [address] Systems Software Manager: Drew Godoy MD Neutrophils/100 WBC (Bld) 90 % [facility] Comment on above: Performed By: #### F LCRYS #### [facility] [address] [place] [address] Systems Software Manager: Krish Abdi MD [facility] [address] [place] [address] Systems Software Manager: Drew Godoy MD #### FLDCT #### [facility] [address] [place] [address] Systems Software Manager: Drew Godoy MD RBC (Bld) [#/Vol] 0.68976 10*6/uL Normal [facility] Comment on above: Performed By: #### F LCRYS #### [facility] [address] [place] [address] Systems Software Manager: Krish Abdi MD [facility] [address] [place] [address] Systems Software Manager: Drew Godoy MD #### FLDCT #### [facility] [address] [place] [address] Systems Software Manager: Drew Godoy MD WBC (Bld) [#/Vol] 9.96 10*3/uL [facility] Comment on above: Performed By: #### F LCRYS #### [address] [address] Systems Software Manager: Krish Abdi MD [facility] [address] [place] [address] Systems Software Manager: Drew Godoy MD #### FLDCT #### [facility] [address] [place] [address] Systems Software Manager: Drew Godoy MD Appearance (U) Cloudy [facility] Comment on above: Performed By: #### F LCRYS #### [facility] [address] [place] [address] Systems Software Manager: Krish Abdi MD [facility] [address] [place] [address] Systems Software Manager: Drew Godoy MD #### FLDCT #### [facility] [address] [place] [address] Systems Software Manager: Drew Godoy MD Color (U) Pale Yellow [facility] Comment on above: Performed By: #### F LCRYS #### [address] [id number] Systems Software Manager: Krish Abdi MD [facility] [address] [place], [place] [address] Systems Software Manager: Drew Godoy MD #### FLDCT #### [facility] [address] [place], [place] [address] Systems Software Manager: Drew Godoy MD Type of Specimen .FLUID Normal [facility] Comment on above: Performed By: #### F LCRYS #### [facility] [address] [place], [place] [address] Systems Software Manager: Krish Abdi MD [facility] [address] [place], [place] [address] Systems Software Manager: Drew Godoy MD #### FLDCT #### [facility] [address] [place], [place] [address] Systems Software Manager: Drew Godoy MD [facility] 11-13-2022 [facility] Telephone (ORQ) -- NICK WRAY ([id number]) 1990 Date Time Provider Department 11/13/22 DELMY [...] refill of a tapered prednisone sent to [facility] in [place], ph [phone]. Please advise. Patient has been identified by name and birthdate. Duration of symptoms: N/A Person calling: self Call patient at: at home [phone] (home) [phone] (cell) Was an appointment scheduled: No Closing statement: Results or non-symptom based questions: Thank you for calling [facility], your call will be returned within [...] Fully Assessed Reason for Visit: Patient Request [2434] Order(s):predniSONE (DELTASONE) 5 mg tabletTake 6 tab [...] by DELMY BOYLE on 11/13/22 [facility] CNOVon 08-14-2022 CNOV Office Visit (RHEUAV ) -- NICK WRAY ([id number]) 1990 M Date Time Provider Department 08/14/22 11:40 AM DELMY BOYLE During your visit today, we recorded the following information about you: Pulse Respiration Blood pressure Weight 94/minute 16/minute 132/93 99.8 kg Delmy Boyle MD 08/14/2022 5:15 PM Signed DX: chronic tophaceous gout, 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 Polyarthritis with several nodules mainly [...] arthritic flares once every 4 months[address] stable manager [address] Jaime in [place] who did diagnostic knee aspiration which according to patient was positive for uric acid crystals. Treated with steroids and continued allopurinol. He has not seen Dr. Jaime since 2014. In 2014, he was hospitalized in [place] for acute polyarthritis. Saw stable manager while in hospital who told him that he possibly had RA. Discharged on steroids. His PCP switched him from allopurinol to Uloric Jan 2017. He also takes colchicine prn. No reduction in frequency or severity of his joint flares with Uloric. In 2017, he has been hospitalized 7-8 times for acute joint flares. Each time he is treated with steroids. Hospitalized at [facility] Apr 2017 for acute flare of [...] shoulder surgery by Dr. Tc Coffey at [facility]. No post op complications. Currently on PT - still working on shoulder ROM. 4. GENERAL HEALTH MAINTENANCE -continue follow up on his CKD with nephrology -he will follow up with his PCP for his general health issues RTC in 7 mon, sooner if needed INTERVAL HISTORY -at [facility], he was advised to increase allopurinol from 300 mg BID to 350 mg qam and 300 mg qpm but he is actually taking allopurinol 400 mg qam and 300 qpm instead. Tolerating this higher dose without issues. -He stopped drinking Nov 2021. He started drinking some since [facility]. -he had 2 flares of joint [...] 30 min (more content not included)... Normal [facility] ALT SerPl-cCncon 08-12-2022 ALT [Catalytic activity/Vol] 30 U/L Normal 10-54 [facility] Comment on above: Order Comment: Speci men Type: BLOOD SPECIMEN Ordering Facility: [facility] Address: [place] [address] Performed By: #### C RET1, 1920-8, 1742-6, 1751-7 #### [facility] CLIA [id number] [address] [place] [address] AST SerPl-cCncon 08-12-2022 AST [Catalytic activity/Vol] 28 U/L Normal 14-40 [facility] Comment on above: Order Comment: Speci men Type: BLOOD SPECIMEN Ordering Facility: [facility] Address: [address] [place] [address] Performed By: #### C RET1, 1919-09, 1741-07, 1750-08 #### [facility] CLIA [id number] [address] [place], [place] [address] Albumin SerPl-mCncon 023 Albumin [Mass/Vol] 4.5 g/dL Normal 3.9-4.9 [facility] Comment on above: Order Comment: Speci men Type: BLOOD SPECIMEN Ordering Facility: [facility] Address: [address] [place] [address] Performed By: #### C RET1, 1919-09, 1741-07, 1750-08 #### [facility] CLIA [id number] [address] [place], [place] [address] CBC W Auto Differential pane l (Bld)on 08-12-2022 Basophils (Bld) [#/Vol] 0.00 10*3/uL Normal <0.11 [facility] Comment on above: Order Comment: Speci men Type: BLOOD SPECIMEN Ordering Facility: [facility] Address: [address] [place], [place] [address] Performed By: #### 5 7021-8 #### [facility] CLIA [id number] [address] [place], [place] [address] [facility] CLIA [id number] [address] [facility] [place] [address] [place] Basophils/100 WBC (Bld) 0.0 % Normal [facility] Comment on above: Order Comment: Speci men Type: BLOOD SPECIMEN Ordering Facility: [facility] Address: [address] [place], [place] [address] Performed By: #### 5 7021-8 #### [facility] CLIA [id number] [address] [place] [address] LAB CLIA [id number] [address] [place] [address] [place] Differential cell count method Nom (Bld) Manual Normal [facility] Comment on above: Order Comment: Speci men Type: BLOOD SPECIMEN Ordering Facility: [facility] Address: [address] [place] [address] Performed By: #### 5 7021-8 #### [facility] CLIA [id number] [address] [place] [address] LAB CLIA [id number] [address] [place] [address] [place] Eosinophils (Bld) [#/Vol] 0.08 10*3/uL Normal <0.46 [facility] Comment on above: Order Comment: Speci men Type: BLOOD SPECIMEN Ordering Facility: [facility] Address: [address] [place], [place] [address] Performed By: #### 5 7021-8 #### [facility] CLIA [id number] [address] [place] [address] LAB CLIA [id number] [address] [place] [address] [place] Eosinophils/100 WBC (Bld) 0.9 % Normal [facility] Comment on above: Order Comment: Speci men Type: BLOOD SPECIMEN Ordering Facility: [facility] Address: [address] [place] [address] Performed By: #### 5 7021-8 #### [facility] CLIA [id number] [address] [place] [address] LAB CLIA [id number] [address] [place] [address] [place] Erythrocyte distribution width (RBC) [Ratio] 14.6 % Normal 11.5-15.0 [facility] Comment on above: Order Comment: Speci men Type: BLOOD SPECIMEN Ordering Facility: [facility] Address: [address] [place] [address] Performed By: #### 5 7021-8 #### [facility] CLIA [id number] [address] [place] [address] LAB CLIA [id number] [address] [place] [address] [place] Hematocrit (Bld) [Volume fraction] 45.7 % Normal 39.0-51.0 [facility] Comment on above: Order Comment: Speci men Type: BLOOD SPECIMEN Ordering Facility: [facility] Address: [address] [place] [address] Performed By: #### 5 7021-8 #### [facility] CLIA [id number] [address] [place] [address] LAB CLIA [id number] [address] [place] [address] [place] Hemoglobin (Bld) [Mass/Vol] 15.3 g/dL Normal 13.0-17.0 [facility] Comment on above: Order Comment: Speci men Type: BLOOD SPECIMEN Ordering Facility: [facility] Address: [address] [place] [address] Performed By: #### 5 7021-8 #### [facility] CLIA [id number] [address] [place] [address] LAB CLIA [id number] [address] [place] [address] [place] Lymphocytes (Bld) [#/Vol] 3.27 10*3/uL Normal 1.00-4.00 [facility] Comment on above: Order Comment: Speci men Type: BLOOD SPECIMEN Ordering Facility: [facility] Address: [address] [place] [address] Performed By: #### 5 7021-8 #### [facility] CLIA [id number] [address] [place] [address] LAB CLIA [id number] [address] [place] [address] [place] Lymphocytes/100 WBC (Bld) 37.7 % Normal [facility] Comment on above: Order Comment: Speci men Type: BLOOD SPECIMEN Ordering Facility: [facility] Address: [address] [place] [address] Performed By: #### 5 7021-8 #### [facility] CLIA [id number] [address] [place] [address] LAB CLIA [id number] [address] [place] [address] [place] MCH (RBC) [Entitic mass] 29.4 pg Normal 26.0-34.0 [facility] Comment on above: Order Comment: Speci men Type: BLOOD SPECIMEN Ordering Facility: [facility] Address: [address] [place], [place] [address] Performed By: #### 5 7021-8 #### [facility] CLIA [id number] [address] [place] [address] LAB CLIA [id number] [address] [place] [address] [place] MCHC (RBC) [Mass/Vol] 33.5 g/dL Normal 30.5-36.0 [facility] Comment on above: Order Comment: Speci men Type: BLOOD SPECIMEN Ordering Facility: [facility] Address: [address] [place], [place] [address] Performed By: #### 5 7021-8 #### [facility] CLIA [id number] [address] [place] [address] LAB CLIA [id number] [address] [place] [address] [place] MCV (RBC) [Entitic vol] 87.9 fL Normal 80.0-100.0 [facility] Comment on above: Order Comment: Speci men Type: BLOOD SPECIMEN Ordering Facility: [facility] Address: [address] [place] [address] Performed By: #### 5 7021-8 #### [facility] CLIA [id number] [address] [place] [address] LAB CLIA [id number] [address] [place] [address] [place] Monocytes (Bld) [#/Vol] 0.23 10*3/uL Normal <0.87 [facility] Comment on above: Order Comment: Speci men Type: BLOOD SPECIMEN Ordering Facility: [facility] Address: [address] [place] [address] Performed By: #### 5 7021-8 #### [facility] CLIA [id number] [address] [place] [address] LAB CLIA [id number] [address] [place] [address] [place] Monocytes/100 WBC (Bld) 2.6 % Normal [facility] Comment on above: Order Comment: Speci men Type: BLOOD SPECIMEN Ordering Facility: [facility] Address: [address] [place] [address] Performed By: #### 5 7021-8 #### [facility] CLIA [id number] [address] [place] [address] LAB CLIA [id number] [address] [place] [address] [place] Neutrophils (Bld) [#/Vol] 5.10 10*3/uL Normal 1.45-7.50 [facility] Comment on above: Order Comment: Speci men Type: BLOOD SPECIMEN Ordering Facility: [facility] Address: [address] [place] [address] Performed By: #### 5 7021-8 #### [facility] CLIA [id number] [address] [place] [address] LAB CLIA [id number] [address] [place] [id number] [place] Neutrophils/100 WBC (Bld) 58.8 % Normal [facility] Comment on above: Order Comment: Speci men Type: BLOOD SPECIMEN Ordering Facility: [facility] Address: [address] [place] [address] Performed By: #### 5 7021-8 #### [facility] CLIA [id number] [address] [place] [address] LAB CLIA [id number] [address] [place] [address] [place] Nucleated RBC (Bld) [#/Vol] 10*3/uL Normal <0.01 [facility] Comment on above: Order Comment: Speci men Type: BLOOD SPECIMEN Ordering Facility: [facility] Address: [address] [place] [address] Performed By: #### 5 7021-8 #### [facility] CLIA [id number] [address] [place] [address] LAB CLIA [id number] [address] [place] [address] [place] Nucleated RBC/100 WBC (Bld) [Ratio] 0.0 /100 WBC Normal [facility] Comment on above: Order Comment: Speci men Type: BLOOD SPECIMEN Ordering Facility: [facility] Address: [address] [place] [address] Performed By: #### 5 7021-8 #### [facility] CLIA [id number] [address] [place] [address] LAB CLIA [id number] [address] [place] [address] [place] Platelet mean volume (Bld) [Entitic vol] 10.1 fL Normal 9.0-12.7 [facility] Comment on above: Order Comment: Speci men Type: BLOOD SPECIMEN Ordering Facility: [facility] Address: [address] [place], [place] [address] [id number] Performed By: #### 5 7021-8 #### [facility] CLIA [id number] [address] [place] [address] LAB CLIA [id number] [address] [facility] [place] [address] [place] Platelets (Bld) [#/Vol] 289 10*3/uL Normal 150-400 [facility] Comment on above: Order Comment: Speci men Type: BLOOD SPECIMEN Ordering Facility: [facility] Address: [address] Performed By: #### 5 7021-8 #### [facility] CLIA [id number] [address] [place] [address] LAB CLIA [id number] [address] [place] [address] [place] Platelets Estimate (Bld) [#/Vol] Adequate Normal [facility] Comment on above: Order Comment: Speci men Type: BLOOD SPECIMEN Ordering Facility: [facility] Address: [address] Performed By: #### 5 7021-8 #### [facility] CLIA [id number] [address] [place] [address] LAB CLIA [id number] [facility] [place] [address] [place] RBC (Bld) [#/Vol] 5.20 10*6/uL Normal 4.20-6.00 [facility] Comment on above: Order Comment: Speci men Type: BLOOD SPECIMEN Ordering Facility: [facility] Address: [address] [place] [address] Performed By: #### 5 7021-8 #### [facility] CLIA [id number] [address] [place] [address] LAB CLIA [id number] [address] [place] [address] [place] RED CELL MORPH Reviewed: unremarkable Normal [facility] Comment on above: Order Comment: Speci men Type: BLOOD SPECIMEN Ordering Facility: [facility] Address: [address] [place] [address] Performed By: #### 5 7021-8 #### [facility] CLIA [id number] [address] [place] [address] LAB CLIA [id number] [address] [place] [address] [place] WBC (Bld) [#/Vol] 8.67 10*3/uL Normal 3.70-11.00 [facility] Comment on above: Order Comment: Speci men Type: BLOOD SPECIMEN Ordering Facility: [facility] Address: [address] [place] [address] Performed By: #### 5 7021-8 #### [facility] CLIA [id number] [address] [place] [address] LAB CLIA [id number] [address] [place] [address] [place] CREATININE Don 08-12-2022 Creatinine [Mass/Vol] 1.28 mg/dL High 0.73-1.22 [facility] Comment on above: Order Comment: Speci men Type: BLOOD SPECIMEN Ordering Facility: [facility] Address: [address] [place] [address] Performed By: #### C RET1, 1920-8, 1742-6, 1751-7 #### [facility] CLIA [id number] [address] [place] [address] ESTIMATED GLOMERULAR FILTRATION RATE 76 mL/min/1.73m??? Normal >=60 [facility] Comment on above: Order Comment: Speci men Type: BLOOD SPECIMEN Ordering Facility: [facility] Address: [address] [place] [address] Result Comment: Jyoti mated Glomerular Filtration Rate [...] #### C RET1, 1919-09, 1741-07, 1750-08 #### [facility] CLIA [id number] [address] [place], [place] [address] CRP SerPl-mCncon 08-12-2022 CRP [Mass/Vol] mg/L Normal <0.9 [facility] Comment on above: Order Comment: Specmelina mariee Type: BLOOD SPECIMEN Ordering Facility: [facility] Address: [address] [place] [address] Performed By: #### C NEEMA1, 1919-09, 1741-07, 1750-08 #### [facility] CLIA [id number] [address] [place], [place] [id number] ESR Westergren method (Bld) [Velocity]on 08-12-2022 ESR (Bld) [Velocity] 5 mm/h Normal 0-15 [facility] Comment on above: Order Comment: Yahaira mariee Type: BLOOD SPECIMEN Ordering Facility: [facility] Address: [address] [place], [place] [id number] Performed By: #### 4 [id number] #### [facility] CLIA [id number] [address] [place] [address] [place] Urate SerPl-mCncon 3 Urate [Mass/Vol] 9.2 mg/dL High 4.0-8.1 [facility] Comment on above: Order Comment: Yahaira mariee Type: BLOOD SPECIMEN Ordering Facility: [facility] Address: [address] [place] [address] Performed By: #### C RET1, 1919-09, 1741-07, 1750-08 #### [facility] IA [id number] [address] [place] [address] CBC AUTO DIFFon 06-28-2022 BASO # 0.0 103/ul Normal 0.0-0.1 [facility] Comment on above: Performed By: #### C BC #### [facility] [address] [address] [address] Nilay Gibbs Basophils/100 WBC (Bld) 0.2 % Normal 0.2-2.0 [facility] Comment on above: Performed By: #### C BC #### [facility] [address] [address] [address] Nilay Gibbs EO # 0.0 103/ul Normal 0.0-0.7 [facility] Comment on above: Performed By: #### C BC #### [facility] [address] [place] [address] Dr. Nilay Gibbs Eosinophils/100 WBC (Bld) 0.3 % Critically low 0.9-7.0 [facility] Comment on above: Performed By: #### C BC #### [facility] [address] [address] [address] Nilay Gibbs Erythrocyte distribution width (RBC) [Ratio] 13.9 % Normal 11.0-15.0 [facility] Comment on above: Performed By: #### C BC #### [facility] [address] [place] [address] Dr. Nilay Gibbs Hematocrit (Bld) [Volume fraction] 39.8 % Critically low 42.0-54.0 [facility] Comment on above: Performed By: #### C BC #### [facility] [address] [address] [address] Nilay Gibbs Hemoglobin (Bld) [Mass/Vol] 13.2 g/dL Critically low 14.0-18.0 [facility] Comment on above: Performed By: #### C BC #### [facility] [address] [address] [address] Nilay Gibbs IG # 0.04 10e3/ul Critically high 0.00-0.03 [facility] Comment on above: Performed By: #### C BC #### [facility] [address] [place] [address] Dr. Nilay Gibbs IG % 0.4 % Normal 0.0-0.5 [facility] Comment on above: Performed By: #### C BC #### [facility] [address] [place] [address] Dr. Nilay Gibbs LYMPH # 1.8 103/ul Normal 1.2-3.8 [facility] Comment on above: Performed By: #### C BC #### [facility] [address] [place] [address] Dr. Nilay Gibbs Lymphocytes/100 WBC (Bld) 17.5 % Critically low 20.5-60.0 [facility] Comment on above: Performed By: #### C BC #### [facility] [address] [place] [address] Dr. Nilay Gibbs MANUAL DIFF REQ NO Normal [facility] Comment on above: Performed By: #### C BC #### [facility] [address] [place] [address] Dr. Nilay Gibbs MCH (RBC) [Entitic mass] 29.3 pg Normal 25.9-34.0 [facility] Comment on above: Performed By: #### C BC #### [facility] [address] [place] [address] Dr. Nilay Gibbs MCHC (RBC) [Mass/Vol] 33.2 g/dL Normal 29.9-35.2 [facility] Comment on above: Performed By: #### C BC #### [facility] [address] [place] [address] Dr. Nilay Gibbs MCV (RBC) [Entitic vol] 88.4 fL Normal 80.0-94.0 [facility] Comment on above: Performed By: #### C BC #### [facility] [address] [place] [address] Dr. Nilay Gibbs MONO # 0.9 103/ul Critically high 0.3-0.8 [facility] Comment on above: Performed By: #### C BC #### [facility] [address] [address] [address] Nilay Gibbs Monocytes/100 WBC (Bld) 9.4 % Normal 1.7-12.0 [facility] Comment on above: Performed By: #### C BC #### [facility] [address] [place] [address] Dr. Nilay Gibbs NEUT # 7.2 103/ul Critically high 1.4-6.5 [facility] Comment on above: Performed By: #### C BC #### [facility] [address] [place] [address] Dr. Nilay Gibbs Neutrophils/100 WBC (Bld) 72.2 % Normal 43.0-75.0 [facility] Comment on above: Performed By: #### C BC #### [facility] [address] [place] [address] Dr. Nilay Gibbs Platelet mean volume (Bld) [Entitic vol] 9.6 fL Normal 9.5-13.5 [facility] Comment on above: Performed By: #### C BC #### [facility] [address] [place] [address] Dr. Nilay Gibbs PLT 356 103/ul Normal 150-450 [facility] Comment on above: Performed By: #### C BC #### [facility] [address] [place] [address] Dr. Nilay Gibbs RBC 4.50 106/ul Critically low 4.70-6.10 [facility] Comment on above: Performed By: #### C BC #### [facility] [address] [place] [address] Dr. Nilay Gibbs WBC 10.0 103/ul Normal 4.0-11.0 [facility] Comment on above: Performed By: #### C BC #### [facility] [address] [place] [address] Dr. Nilay Gibbs PROF CHEM 8 (BAS METB)on Anion gap [Moles/Vol] 12.4 mmol/L Normal [facility] Comment on above: Performed By: #### A MM #### [facility] [address] [place] [address] Dr. Nilay Gibbs Calcium [Mass/Vol] 9.4 mg/dL Normal 8.5-10.1 [facility] Comment on above: Performed By: #### A MM #### [facility] [address] [place] [address] Dr. Nilay Gibbs Chloride [Moles/Vol] 105 mmol/L Normal 98-107 [facility] Comment on above: Performed By: #### A MM #### [facility] [address] [address] [address] Nilay Gibbs CO2 [Moles/Vol] 25.6 mmol/L Normal 21.0-32.0 [facility] Comment on above: Performed By: #### A MM #### [facility] [address] [place] [address] Dr. Nilay Gibbs Creatinine [Mass/Vol] 1.18 mg/dL Normal 0.70-1.30 [facility] Comment on above: Performed By: #### A MM #### [facility] [address] [place] [address] Dr. Nilay Gibbs EGFR-AF FINNISH >60 Normal >=60 [facility] Comment on above: Performed By: #### A MM #### [facility] [address] [place] [address] Dr. Nilay Gibbs EGFR-NON AF FINNISH >60 Normal >=60 [facility] Comment on above: Performed By: #### A MM #### [facility] [address] [place] [address] Dr. Nilay Gibbs Glucose [Mass/Vol] 125 mg/dL Critically high 74-106 [facility] Comment on above: Performed By: #### A MM #### [facility] [address] [place] [address] Dr. Nilay Gibbs Potassium [Moles/Vol] 4.3 mmol/L Normal 3.5-5.1 [facility] Comment on above: Performed By: #### A MM #### [facility] [address] [place] [address] Dr. Nilay Gibbs Sodium [Moles/Vol] 139 mmol/L Normal 136-145 [facility] Comment on above: Performed By: #### A MM #### [facility] [address] [place] [address] Dr. Nilay Gibbs Urea nitrogen [Mass/Vol] 15.0 mg/dL Normal 7.0-18.0 [facility] Comment on above: Performed By: #### A MM #### [facility] [address] [place] [address] Dr. Nilay Gibbs Urea nitrogen/Creatinine [Mass ratio] 12.7 mg/mg Normal [facility] Comment on above: Performed By: #### A MM #### [facility] [address] [place] [address] Dr. Nilay Gibbs CBC AUTO DIFFon 06-20-2022 BASO # 0.0 103/ul Normal 0.0-0.1 [facility] Comment on above: Performed By: #### A MM #### [facility] [address] [place] [address] Dr. Nilay Gibbs Basophils/100 WBC (Bld) 0.2 % Normal 0.2-2.0 [facility] Comment on above: Performed By: #### A MM #### [facility] [address] [place] [address] Dr. Nilay Gibbs EO # 0.0 103/ul Normal 0.0-0.7 [facility] Comment on above: Performed By: #### A MM #### [facility] [address] [place] [address] Dr. Nilay Gibbs Eosinophils/100 WBC (Bld) 0.3 % Critically low 0.9-7.0 [facility] Comment on above: Performed By: #### A MM #### [facility] [address] [place] [address] Dr. Nilay Gibbs Erythrocyte distribution width (RBC) [Ratio] 14.3 % Normal 11.0-15.0 [facility] Comment on above: Performed By: #### A MM #### [facility] [address] [place] [address] Dr. Nilay Gibbs Hematocrit (Bld) [Volume fraction] 39.3 % Critically low 42.0-54.0 [facility] Comment on above: Performed By: #### A MM #### [facility] [address] [place] [address] Dr. Nilay Gibbs Hemoglobin (Bld) [Mass/Vol] 13.1 g/dL Critically low 14.0-18.0 [facility] Comment on above: Performed By: #### A MM #### [facility] [address] [place] [address] Dr. Nilay Gibbs IG # 0.03 10e3/ul Normal 0.00-0.03 [facility] Comment on above: Performed By: #### A MM #### [facility] [address] [place] [address] Dr. Nilay Gibbs IG % 0.3 % Normal 0.0-0.5 [facility] Comment on above: Performed By: #### A MM #### [facility] [address] [place] [address] Dr. Nilay Gibbs LYMPH # 1.7 103/ul Normal 1.2-3.8 [facility] Comment on above: Performed By: #### A MM #### [facility] [address] [place] [address] Dr. Nilay Gibbs Lymphocytes/100 WBC (Bld) 14.5 % Critically low 20.5-60.0 [facility] Comment on above: Performed By: #### A MM #### [facility] [address] [place] [address] Dr. Nilay Gibbs MANUAL DIFF REQ NO Normal [facility] Comment on above: Performed By: #### A MM #### [facility] [address] [place] [address] Dr. Nilay Gibbs MCH (RBC) [Entitic mass] 29.2 pg Normal 25.9-34.0 [facility] Comment on above: Performed By: #### A MM #### [facility] [address] [place] [address] Dr. Nilay Gibbs MCHC (RBC) [Mass/Vol] 33.3 g/dL Normal 29.9-35.2 The [facility] on above: Performed By: #### A MM #### [facility] [address] [address] [address] Nilay Gibbs MCV (RBC) [Entitic vol] 87.5 fL Normal 80.0-94.0 [facility] Comment on above: Performed By: #### A MM #### [facility] [address] [address] [address] Nilay Gibbs MONO # 1.3 103/ul Critically high 0.3-0.8 [facility] Comment on above: Performed By: #### A MM #### [facility] [address] [address] [address] Nilay Gibbs Monocytes/100 WBC (Bld) 10.9 % Normal 1.7-12.0 [facility] Comment on above: Performed By: #### A MM #### [facility] [address] [address] [address] Nilay Gibbs NEUT # 8.7 103/ul Critically high 1.4-6.5 [facility] Comment on above: Performed By: #### A MM #### [facility] [address] [address] [address] Nilay Gibbs Neutrophils/100 WBC (Bld) 73.8 % Normal 43.0-75.0 [facility] Comment on above: Performed By: #### A MM #### [facility] [address] [address] [address] Nilay Gibbs Platelet mean volume (Bld) [Entitic vol] 10.9 fL Normal 9.5-13.5 [facility] Comment on above: Performed By: #### A MM #### [facility] [address] [address] [address] Nilay Gibbs PLT 171 103/ul Normal 150-450 [facility] Comment on above: Performed By: #### A MM #### [facility] [address] [address] [address] Nilay Gibbs RBC 4.49 106/ul Critically low 4.70-6.10 [facility] Comment on above: Performed By: #### A MM #### [facility] [address] [place] [address] Dr. Nilay Gibbs WBC 11.7 103/ul Critically high 4.0-11.0 [facility] Comment on above: Performed By: #### A MM #### [facility] [address] [place] [address] Dr. Nilay Gibbs CRPon 06-20-2022 CRP 25.4 mg/dL Critically high <=1.0 [facility] Comment on above: Performed By: #### C RP, CMP #### [facility] [address] [place] [address] Dr. Nilay Gibbs CULTURE BLOODon 06-20-2022 Microscopic examination of blood, culture Culture Observations: NO GROWTH AT 5 DAYS. Normal [facility] Comment on above: Performed By: #### C MP #### [facility] [address] [place] [address] Dr. Nilay Gibbs Microscopic examination of blood, culture Culture Observations: NO GROWTH AT 5 DAYS. [facility] Comment on above: Performed By: #### C MP #### [facility] [address] [place] [address] Dr. Nilay Gibbs LACTATE/LACTIC ACIDon 2022 Lactate [Moles/Vol] 0.7 mmol/L Normal 0.4-2.0 [facility] Comment on above: Performed By: #### A MM #### [facility] [address] [place] [address] Dr. Nilay Gibbs PROF 14(COMP METB)on 023 Albumin [Mass/Vol] 3.8 g/dL Normal 3.4-5.0 [facility] Comment on above: Performed By: #### C RP, CMP #### [facility] [address] [place] [address] Dr. Nilay Gibbs Albumin/Globulin [Mass ratio] 1.1 {ratio} [facility] Comment on above: Performed By: #### C RP, CMP #### [facility] [address] [place] [address] Dr. Nilay Gibbs ALP [Catalytic activity/Vol] 85 U/L Normal 46-116 [facility] Comment on above: Performed By: #### C RP, CMP #### [facility] [address] [place] [address] Dr. Nilay Gibbs ALT [Catalytic activity/Vol] 29 U/L Normal 16-63 [facility] Comment on above: Performed By: #### C RP, CMP #### [facility] [address] [place] [address] Dr. Nilay Gibbs Anion gap [Moles/Vol] 15.2 mmol/L Normal [facility] Comment on above: Performed By: #### C RP, CMP #### [facility] [address] [place] [address] Dr. Nilay Gibbs AST [Catalytic activity/Vol] 20 U/L Normal 15-37 [facility] Comment on above: Performed By: #### C RP, CMP #### [facility] [address] [place] [address] Dr. Nilay Gibbs Bilirubin [Mass/Vol] 1.1 mg/dL Critically high 0.2-1.0 [facility] Comment on above: Performed By: #### C RP, CMP #### [facility] [address] [place] [address] Dr. Nilay Gibbs Calcium [Mass/Vol] 9.4 mg/dL Normal 8.5-10.1 [facility] Comment on above: Performed By: #### C RP, CMP #### [facility] [address] [place] [address] Dr. Nilay Gibbs Chloride [Moles/Vol] 99 mmol/L Normal 98-107 [facility] Comment on above: Performed By: #### C RP, CMP #### [facility] [address] [place] [address] Dr. Nilay Gibbs CO2 [Moles/Vol] 25.7 mmol/L Normal 21.0-32.0 [facility] Comment on above: Performed By: #### C RP, CMP #### [facility] [address] [place] [address] Dr. Nilay Gibbs Creatinine [Mass/Vol] 1.32 mg/dL Critically high 0.70-1.30 The [facility] Comment on above: Performed By: #### C RP, CMP #### [facility] [address] [place] [address] Dr. Nilay Gibbs EGFR-AF FINNISH >60 Normal >=60 [facility] Comment on above: Performed By: #### C RP, CMP #### [facility] [address] [place] [address] Dr. Nilay Gibbs EGFR-NON AF FINNISH >60 Normal >=60 [facility] Comment on above: Performed By: #### C RP, CMP #### [facility] [address] [place] [address] Dr. Nilay Gibbs Globulin (S) [Mass/Vol] 3.6 g/dL Normal [facility] Comment on above: Performed By: #### C RP, CMP #### [facility] [address] [place] [address] Dr. Nilay Gibbs Glucose [Mass/Vol] 106 mg/dL Normal 74-106 [facility] Comment on above: Performed By: #### C RP, CMP #### [facility] [address] [place] [address] Dr. Nilay Gibbs Potassium [Moles/Vol] 3.9 mmol/L Normal 3.5-5.1 The [facility] Comment on above: Performed By: #### C RP, CMP #### [facility] [address] [place] [address] Dr. Nilay Gibbs Protein [Mass/Vol] 7.4 g/dL Normal 6.4-8.2 [facility] Comment on above: Performed By: #### C RP, CMP #### [facility] [address] [place] [address] Dr. Nilay Gibbs Sodium [Moles/Vol] 136 mmol/L Normal 136-145 [facility] Comment on above: Performed By: #### C RP, CMP #### [facility] [address] [place] [address] Dr. Nilay Gibbs Urea nitrogen [Mass/Vol] 10.0 mg/dL Normal 7.0-18.0 The [facility] on above: Performed By: #### C RP, CMP #### [facility] [address] [place] [address] Dr. Nilay Gibbs Urea nitrogen/Creatinine [Mass ratio] 7.6 mg/mg Normal [facility] Comment on above: Performed By: #### C RP, CMP #### [facility] [address] [address] [address] Nilay Gbibs SED RATE WESTERGRENon 2022 SED RATE 46 mm/hr Critically high <=15 [facility] Comment on above: Performed By: #### S EDR #### [facility] [address] [place] [address] Dr. Nilay Gibbs Covid-19 PCR ([facility])on SARS-CoV-2 (COVID-19) RNA TALHA+probe Ql (Unsp spec) Not detected Normal NOT DETECTED The [facility] Comment on above: Result Comment: When diagnostic [...] for this test is supported by the [place] of Health and Human Service's declaration that [...] used). Performed By: #### A MM #### [facility] [address] [place] [address] Dr. Nilay Gibbs INFLUENZA A AND B AGon 01-31 INFLUANEGH SEE BELOW Normal [facility] Comment on above: Result Comment: Nega tive for Flu A protein angiten. Infection due to Flu A cannot be ruled out. Flu A angiten in the sample may be below the detection limit of the test. Performed By: #### A MM #### [facility] [address] [address] [address] [facility] SEE BELOW Normal [facility] Comment on above: Result Comment: Nega tive for Flu B protein antigen. Infection due to Flu B cannot be ruled out. Flu B antigen in the sample may be below the detection limit of the test. Performed By: #### A MM #### [facility] [address] [address] [address] Nilay Gibbs INFLUENZA A AG Negative Normal NEGATIVE SEE COMMENT [facility] Comment on above: Performed By: #### A MM #### [facility] [address] [place] [address] Dr. Nilay Gibbs INFLUENZA B AG Negative Normal NEGATIVE SEE COMMENT [facility] Comment on above: Performed By: #### A MM #### [facility] [address] [address] [address] Nilay Gibbs INTERNAL CONTROLS Within Normal Limits Normal Wi thin Normal Limits The [facility] Comment on above: Performed By: #### A MM #### [facility] [address] [place] [address] Dr. Nilay Gibbs Cholesterol [Mass/volume] in Serum or PlasmaOrdered By: Adam Young on 12-08-2021 Cholesterol [Mass/Vol] 205 mg/dL 140-200 [facility] Comment on above: Chol less than 200 m g/dl low riskChol 201-239 mg/dl borderline riskChol 240 mg/dl and greater high risk Cholesterol in LDL Calc [Mas s/Vol]Ordered By: Adam Young on 12-08-2021 Cholesterol in LDL [Mass/Vol] 120 mg/dL 0-100 [facility] Comment on above: LDL ATP III CLASSIFI CATIONLDL less than 100 mg/dL OptimalLDL 100-129 mg/dL Near or above optimalLDL 130-159 mg/dL Borderline highLDL 160-189 mg/dL HighLDL greater than 189 mg/dL Very high Cholesterol in VLDL Calc [Ma ss/Vol]Ordered By: Adam Young on 12-08-2021 Cholesterol in VLDL [Mass/Vol] 37 mg/dL [facility] No Panel InformationOrdered By: Adam Young on 12-08-2021 25-Hydroxy Vitamin D Total 50.6 ng/mL 30-100 [facility] Comment on above: VITAMIN D [...] Cholesterol in HDL [Mass/Vol] 47 mg/dL 29-71 [facility] Comment on above: HDL CHOL ATP-III CLA SSIFICATION Cardiovascular RiskHDL > or equal to 60 mg/dL LOWHDL < 40 mg/dL HIGH Serum or plasma total choles terol/high density lipoprotein (HDL) cholesterol mass ratOrdered By: Adam Young on 12-08-2021 Cholesterol.total/Ch olesterol in HDL [Mass ratio] 4.4 {ratio} <5.0 [facility] TSH DL <= 0.005 mIU/L QnOrde red By: Adam Young on 12-08-2021 TSH Qn 0.75 m[IU]/L 0.45-5.33 [facility] Triglyceride [Mass/volume] i n Serum or PlasmaOrdered By: Adam Young on 12-08-2021 Triglyceride [Mass/Vol] 188 mg/dL 35-149 [facility] Comment on above: TRIG ATP III CLASSIF ICATIONTRIG less than 150 mg/dL NormalTRIG 150-199 mg/dL Borderline highTRIG 200-500 mg/dL High TRIG greater than 500 mg/dL Very highStandard traceable to the Center for Disease Conrtrol and Prevention (CDC) test method. Covid-19 PCR (CVDTBH)on SARS-CoV-2 (COVID-19) RNA TALHA+probe Ql (Unsp spec) Not detected Normal NOT DETECTED [facility] Comment on above: Result Comment: When diagnostic [...] for this test is supported by the [place] of Health and Human Service's declaration that [...] used). Performed By: #### C MP #### [facility] [address] [place] [address] Dr. Nilay Gibbs ETHANOL (BLD ALC)on 12-08-19 22 Ethanol [Mass/Vol] 288 mg/dL Normal [facility] Comment on above: Performed By: #### C MP #### [facility] [address] [place] [address] Dr. Nilay Gibbs ALC NOTE NOTE: 80 mg/dl is th e legal limit for a blood alcohol level Normal The [facility] Comment on above: Performed By: #### C MP #### [facility] [address] [place] [address] Dr. Nilay Gibbs Performed By: #### A MM #### [facility] [address] [place] [address] Dr. Nilay Gibbs Ethanol [Mass/Vol] 130 mg/dL Normal [facility] Comment on above: Performed By: #### A MM #### [facility] [address] [place] [address] Dr. Nilay Gibbs Ethanol [Mass/Vol] 196 mg/dL Normal [facility] Comment on above: Performed By: #### A MM #### [facility] [address] [place] [address] Dr. Nilay Gibbs ACETAMINOPHENon 12-06-2021 Acetaminophen [Mass/Vol] ug/mL Critically low 10.0-30.0 [facility] Comment on above: Performed By: #### A CET #### [facility] [address] [place] [address] Dr. Nilay Gibbs AMMONIAon 12-06-2021 Ammonia (P) [Moles/Vol] 22 umol/L Normal 11-32 [facility] Comment on above: Performed By: #### A MM #### [facility] [address] [place] [address] Dr. Nilay Gibbs CBC AUTO DIFFon 12-06-2021 BASO # 0.0 103/ul Normal 0.0-0.1 [facility] Comment on above: Performed By: #### A MM #### [facility] [address] [place] [address] Dr. Nilay Gibbs Basophils/100 WBC (Bld) 0.5 % Normal 0.2-2.0 [facility] Comment on above: Performed By: #### A MM #### [facility] [address] [place] [address] Dr. Nilay Gibbs EO # 0.1 103/ul Normal 0.0-0.7 [facility] Comment on above: Performed By: #### A MM #### [facility] [address] [place] [address] Dr. Nilay Gibbs Eosinophils/100 WBC (Bld) 1.0 % Normal 0.9-7.0 [facility] Comment on above: Performed By: #### A MM #### [facility] [address] [place] [address] Dr. Nilay Gibbs Erythrocyte distribution width (RBC) [Ratio] 12.9 % Normal 11.0-15.0 [facility] Comment on above: Performed By: #### A MM #### [facility] [address] [place] [address] Dr. Nilay Gibbs Hematocrit (Bld) [Volume fraction] 40.5 % Critically low 42.0-54.0 [facility] Comment on above: Performed By: #### A MM #### [facility] [address] [address] [address] Nilay Gibbs Hemoglobin (Bld) [Mass/Vol] 13.9 g/dL Critically low 14.0-18.0 [facility] Comment on above: Performed By: #### A MM #### [facility] [address] [address] [address] Nilay Gibbs IG # 0.02 10e3/ul Normal 0.00-0.03 [facility] Comment on above: Performed By: #### A MM #### [facility] [address] [place] [address] Dr. Nilay Gibbs IG % 0.3 % Normal 0.0-0.5 [facility] Comment on above: Performed By: #### A MM #### [facility] [address] [place] [address] Dr. Nilay Gibbs LYMPH # 2.7 103/ul Normal 1.2-3.8 [facility] Comment on above: Performed By: #### A MM #### [facility] [address] [place] [address] Dr. Nilay Gibbs Lymphocytes/100 WBC (Bld) 45.2 % Normal 20.5-60.0 [facility] Comment on above: Performed By: #### A MM #### [facility] [address] [place] [address] Dr. Nilay Gibbs MANUAL DIFF REQ NO Normal [facility] Comment on above: Performed By: #### A MM #### [facility] [address] [place] [address] Dr. Nilay Gibbs MCH (RBC) [Entitic mass] 29.8 pg Normal 25.9-34.0 [facility] Comment on above: Performed By: #### A MM #### [facility] [address] [place] [address] Dr. Nilay Gibbs MCHC (RBC) [Mass/Vol] 34.3 g/dL Normal 29.9-35.2 [facility] Comment on above: Performed By: #### A MM #### [facility] [address] [address] [address] Nilay Gibbs MCV (RBC) [Entitic vol] 86.9 fL Normal 80.0-94.0 [facility] Comment on above: Performed By: #### A MM #### [facility] [address] [address] [address] Nilay Gibbs MONO # 0.4 103/ul Normal 0.3-0.8 The [facility] Comment on above: Performed By: #### A MM #### [facility] [address] [address] [address] Nilay Gibbs Monocytes/100 WBC (Bld) 6.3 % Normal 1.7-12.0 [facility] Comment on above: Performed By: #### A MM #### [facility] [address] [place] [address] Dr. Nilay Gibbs NEUT # 2.7 103/ul Normal 1.4-6.5 [facility] Comment on above: Performed By: #### A MM #### [facility] [address] [place] [address] Dr. Nilay Gibbs Neutrophils/100 WBC (Bld) 46.7 % Normal 43.0-75.0 [facility] Comment on above: Performed By: #### A MM #### [facility] [address] [place] [address] Dr. Nilay Gibbs Platelet mean volume (Bld) [Entitic vol] 10.4 fL Normal 9.5-13.5 The [facility] Comment on above: Performed By: #### A MM #### [facility] [address] [place] [address] Dr. Nilay Gibbs PLT 237 103/ul Normal 150-450 [facility] Comment on above: Performed By: #### A MM #### [facility] [address] [address] [address] Nilay Gibbs RBC 4.66 106/ul Critically low 4.70-6.10 [facility] Comment on above: Performed By: #### A MM #### [facility] [address] [place] [address] Dr. Nilay Gibbs WBC 5.9 103/ul Normal 4.0-11.0 [facility] Comment on above: Performed By: #### A MM #### [facility] [address] [place] [address] Dr. Nilay Gibbs DRUG SCREEN RAPID (URINE)on 12-06-2021 AMP Negative Normal NEGATIVE [facility] Comment on above: Performed By: #### D RUGRPD #### [facility] [address] [place] [address] Dr. Nilay Gibbs BAR Negative Normal NEGATIVE [facility] Comment on above: Performed By: #### D RUGRPD #### [facility] [address] [place] [address] Dr. Nilay Gibbs BUP Negative Normal NEGATIVE [facility] Comment on above: Performed By: #### D RUGRPD #### [facility] [address] [place] [address] Dr. Nilay Gibbs BZO Positive Abnormal NEGATIVE [facility] Comment on above: Performed By: #### D RUGRPD #### [facility] [address] [place] [address] Dr. Nilay Gibbs ROQUE Negative Normal NEGATIVE [facility] Comment on above: Performed By: #### D RUGRPD #### [facility] [address] [place] [address] Dr. Nilay Gibbs CUT-OFFS SEE BELOW Normal [facility] Comment on above: Result Comment: AMP (Amphetamine): 500ng/mL, BAR (Barbituates): 200 ng/mL, BZO (Benzodiazepines): 150 ng/mL, BUP (Buprenorphine): 10 ng/mL, ROQUE (Cocaine): 150 ng/mL, mAMP (Methamphetamine): 500 ng/mL, MTD (Methadone): 200 ng/mL, OPI (Opiates): 100 ng/mL, OXY (Oxycodone): 100 ng/mL, PCP (Phencyclidine): 25 ng/mL, PPX (Propoxyphene): 300 ng/mL, THC (Cannabinoids): 50 ng/mL, TCA (Trycyclic Antidepressants): 300 ng/mL Performed By: #### D RUGRPD #### [facility] [address] [place] [address] Dr. Nilay Gibbs DRUG CUT HEADER DRUG CLASS TEST SYST EM CUT-OFF CONCENTRATIONS ARE FOLLOWS: Normal [facility] Comment on above: Performed By: #### D RUGRPD #### [facility] [address] [place] [address] Dr. Nilay Gibbs mAMP Negative Normal NEGATIVE The [facility] Comment on above: Performed By: #### D RUGRPD #### [facility] [address] [place] [address] Dr. Nilay Gibbs MTD Negative Normal NEGATIVE [facility] Comment on above: Performed By: #### D RUGRPD #### [facility] [address] [place] [address] Dr. Nilay Gibbs OPI Negative Normal NEGATIVE [facility] Comment on above: Performed By: #### D RUGRPD #### [facility] [address] [place] [address] Dr. Nilay Gibbs OXY Negative Normal NEGATIVE [facility] Comment on above: Performed By: #### D RUGRPD #### [facility] [address] [place] [address] Dr. Nilay Gibbs PCP Negative Normal NEGATIVE [facility] Comment on above: Performed By: #### D RUGRPD #### [facility] [address] [place] [address] Dr. Nilay Gibbs PPX Negative Normal NEGATIVE The [facility] Comment on above: Performed By: #### D RUGRPD #### [facility] [address] [place] [address] Dr. Nilay Gibbs TCA Negative Normal NEGATIVE [facility] Comment on above: Performed By: #### D RUGRPD #### [facility] [address] [place] [address] Dr. Nilay Gibbs THC Negative Normal NEGATIVE [facility] Comment on above: Performed By: #### D RUGRPD #### [facility] [address] [place] [address] Dr. Nilay Gibbs ETHANOL (BLD ALC)on 12-07-19 22 ALC NOTE NOTE: 80 mg/dl is th e legal limit for a blood alcohol level Normal [facility] Comment on above: Performed By: #### C MP #### [facility] [address] [place] [address] Dr. Nilay Gibbs Ethanol [Mass/Vol] 336 mg/dL Normal [facility] Comment on above: Performed By: #### C MP #### [facility] [address] [place] [address] Dr. Nilay Gibbs PROF 14(COMP METB)on 022 Albumin [Mass/Vol] 4.2 g/dL Normal 3.4-5.0 [facility] Comment on above: Performed By: #### C MP #### [facility] [address] [place] [address] Dr. Nilay Gibbs Albumin/Globulin [Mass ratio] 1.3 {ratio} Normal [facility] Comment on above: Performed By: #### C MP #### [facility] [address] [place] [address] Dr. Nilay Gibbs ALP [Catalytic activity/Vol] 104 U/L Normal 46-116 [facility] Comment on above: Performed By: #### C MP #### [facility] [address] [place] [address] Dr. Nilay Gibbs ALT [Catalytic activity/Vol] 41 U/L Normal 16-63 [facility] Comment on above: Performed By: #### C MP #### [facility] [address] [place] [address] Dr. Nilay Gibbs Anion gap [Moles/Vol] 11.5 mmol/L Normal [facility] Comment on above: Performed By: #### C MP #### [facility] [address] [place] [address] Dr. Nilay Gibbs AST [Catalytic activity/Vol] 37 U/L Normal 15-37 [facility] Comment on above: Performed By: #### C MP #### [facility] [address] [place] [address] Dr. Nilay Gibbs Bilirubin [Mass/Vol] 0.2 mg/dL Normal 0.2-1.0 [facility] Comment on above: Performed By: #### C MP #### [facility] [address] [place] [address] Dr. Nilay Gibbs Calcium [Mass/Vol] 8.6 mg/dL Normal 8.5-10.1 [facility] Comment on above: Performed By: #### C MP #### [facility] [address] [address] [address] Nilay Gibbs Chloride [Moles/Vol] 97 mmol/L Critically low 98-107 [facility] Comment on above: Performed By: #### C MP #### [facility] [address] [place] [address] Dr. Nilay Gibbs CO2 [Moles/Vol] 26.0 mmol/L Normal 21.0-32.0 [facility] Comment on above: Performed By: #### C MP #### [facility] [address] [place] [address] Dr. Nilay Gibbs Creatinine [Mass/Vol] 1.47 mg/dL Critically high 0.70-1.30 [facility] Comment on above: Performed By: #### C MP #### [facility] [address] [place] [address] Dr. Nilay Gibbs EGFR-AF FINNISH >60 Normal >=60 [facility] Comment on above: Performed By: #### C MP #### [facility] [address] [place] [address] Dr. Nilay Gibbs EGFR-NON AF FINNISH 56 mL/min/1.73m2 Critically low >=60 [facility] Comment on above: Performed By: #### C MP #### [facility] [address] [place] [address] Dr. Nilay Gibbs Globulin (S) [Mass/Vol] 3.2 g/dL Normal [facility] Comment on above: Performed By: #### C MP #### [facility] [address] [place] [address] Dr. Nilay Gibbs Glucose [Mass/Vol] 117 mg/dL Critically high 74-106 [facility] Comment on above: Performed By: #### C MP #### [facility] [address] [place], [place] [address] Dr. Nilay Gibbs Potassium [Moles/Vol] 3.5 mmol/L Normal 3.5-5.1 [facility] Comment on above: Performed By: #### C MP #### [facility] [address] [place], [place] [address] Dr. Nilay Gibbs Protein [Mass/Vol] 7.4 g/dL Normal 6.4-8.2 [facility] Comment on above: Performed By: #### C MP #### [facility] [address] [address] [address] Nilay Gibbs Sodium [Moles/Vol] 131 mmol/L Critically low 136-145 [facility] Comment on above: Performed By: #### C MP #### [facility] [address] [address] [address] Nilay Gibbs Urea nitrogen [Mass/Vol] 14.0 mg/dL Normal 7.0-18.0 [facility] Comment on above: Performed By: #### C MP #### [facility] [address] [address] [address] Nilay Gibbs Urea nitrogen/Creatinine [Mass ratio] 9.5 mg/mg Normal [facility] Comment on above: Performed By: #### C MP #### [facility] [address] [id number] Nilay Gibbs SALICYLATEon 12-06-2021 SALICYLATE <2.8 Normal <=19.9 [facility] Comment on above: Performed By: #### A MM #### [facility] [address] [place], [place] [address] Dr. Nilay Gibbs MRI Shoulder w/o Lefton [...] by Stephen Ware on 11/11/2021 0955 Normal [facility] Activated partial thrombopla stin time (aPTT) in platelet poor plasma by coagulation aOrdered By: Kristal Goldberg on 09-27-2021 aPTT Coag (PPP) [Time] 34.7 s 25.1-36.5 [facility] Albumin [Mass/volume] in Ser um or PlasmaOrdered By: Kristal Goldberg on 09-27-2021 Albumin [Mass/Vol] 4.1 g/dL 3.2-5.5 [facility] Basophils Auto (Bld) [#/Vol] Ordered By: Kristal Goldberg on 09-27-2021 Basophils (Bld) [#/Vol] 0.0 10*3/uL 0.0-0.2 [facility] Basophils/100 WBC Auto (Bld) Ordered By: Kristal Goldberg on 09-27-2021 Basophils/100 WBC (Bld) 0.3 % . [facility] Bilirubin Auto test strip Ql (U)Ordered By: Kristal Goldberg on 09-27-2021 Bilirubin Ql (U) Negative Negative [facility] Blood hemoglobin measurement (mass/volume)Ordered By: Kristal Goldberg on 09-27-2021 Hemoglobin (Bld) [Mass/Vol] 13.6 g/dL 13.0-17.0 [facility] Blood leukocytes automated c ount (number/volume)Ordered By: Kristal Goldberg on 09-27-2021 WBC (Bld) [#/Vol] 5.7 10*3/uL 4.5-11.0 [facility] CBC AUTO DIFFon 09-27-2021 BASO # 0.0 103/ul Normal 0.0-0.1 [facility] Comment on above: Performed By: #### A MM #### [facility] [address] [address] [address] Nilay Gibbs Basophils/100 WBC (Bld) 0.5 % Normal 0.2-2.0 [facility] Comment on above: Performed By: #### A MM #### [facility] [address] [place] [address] Dr. Nilay Gibbs EO # 0.1 103/ul Normal 0.0-0.7 [facility] Comment on above: Performed By: #### A MM #### [facility] [address] [address] [address] Nilay Gibbs Eosinophils/100 WBC (Bld) 1.6 % Normal 0.9-7.0 [facility] Comment on above: Performed By: #### A MM #### [facility] [address] [place] [address] Dr. Nilay Gibbs Erythrocyte distribution width (RBC) [Ratio] 14.0 % Normal 11.0-15.0 The [facility] Comment on above: Performed By: #### A MM #### [facility] [address] [place] [address] Dr. Nilay Gibbs Hematocrit (Bld) [Volume fraction] 40.2 % Critically low 42.0-54.0 [facility] Comment on above: Performed By: #### A MM #### [facility] [address] [place] [address] Dr. Nilay Gibbs Hemoglobin (Bld) [Mass/Vol] 13.7 g/dL Critically low 14.0-18.0 [facility] Comment on above: Performed By: #### A MM #### [facility] [address] [place] [address] Dr. Nilay Gibbs IG # 0.01 10e3/ul Normal 0.00-0.03 [facility] Comment on above: Performed By: #### A MM #### [facility] [address] [place] [address] Dr. Nilay Gibbs IG % 0.2 % Normal 0.0-0.5 [facility] Comment on above: Performed By: #### A MM #### [facility] [address] [place] [address] Dr. Nilay Gibbs LYMPH # 2.1 103/ul Normal 1.2-3.8 The [facility] Comment on above: Performed By: #### A MM #### [facility] [address] [place] [address] Dr. Nilay Gibbs Lymphocytes/100 WBC (Bld) 37.1 % Normal 20.5-60.0 [facility] Comment on above: Performed By: #### A MM #### [facility] [address] [place] [address] Dr. Nilay Gibbs MANUAL DIFF REQ NO Normal [facility] Comment on above: Performed By: #### A MM #### [facility] [address] [place] [address] Dr. Nilay Gibbs MCH (RBC) [Entitic mass] 30.1 pg Normal 25.9-34.0 [facility] Comment on above: Performed By: #### A MM #### [facility] [address] [place] [address] Dr. Nilay Gibbs MCHC (RBC) [Mass/Vol] 34.1 g/dL Normal 29.9-35.2 [facility] Comment on above: Performed By: #### A MM #### [facility] [address] [place] [address] Dr. Nilay Gibbs MCV (RBC) [Entitic vol] 88.4 fL Normal 80.0-94.0 [facility] Comment on above: Performed By: #### A MM #### [facility] [address] [place] [address] Dr. Nilay Gibbs MONO # 0.4 103/ul Normal 0.3-0.8 [facility] Comment on above: Performed By: #### A MM #### [facility] [address] [place] [address] Dr. Nilay Gibbs Monocytes/100 WBC (Bld) 7.2 % Normal 1.7-12.0 [facility] Comment on above: Performed By: #### A MM #### [facility] [address] [place] [address] Dr. Nilay Gibbs NEUT # 3.1 103/ul Normal 1.4-6.5 [facility] Comment on above: Performed By: #### A MM #### [facility] [address] [place] [address] Dr. Nilay Gibbs Neutrophils/100 WBC (Bld) 53.4 % Normal 43.0-75.0 [facility] Comment on above: Performed By: #### A MM #### [facility] [address] [place] [address] Dr. Nilay Gibbs Platelet mean volume (Bld) [Entitic vol] 10.3 fL Normal 9.5-13.5 [facility] Comment on above: Performed By: #### A MM #### [facility] [address] [place] [address] Dr. Nilay Gibbs PLT 254 103/ul Normal 150-450 [facility] Comment on above: Performed By: #### A MM #### [facility] [address] [place] [address] Dr. Nilay Gibbs RBC 4.55 106/ul Critically low 4.70-6.10 [facility] Comment on above: Performed By: #### A MM #### [facility] [address] [place] [address] Dr. Nilay Gibbs WBC 5.7 103/ul Normal 4.0-11.0 [facility] Comment on above: Performed By: #### A MM #### [facility] [address] [place] [address] HEAD WO CONon [...] by: RUFINA MARIN Date: 2021-09-27 10:27 Normal [facility] CTA HEAD WO W CONon 09-28-19 CTA [...] by: NEL KING Date: 2021-09-27 12:19 Normal [facility] CTA NECK WO W CONon 09-28-19 CTA [...] NEL KING Date: 2021-09-27 12:06 Normal [facility] Creatine kinase [Enzymatic a ctivity/volume] in Serum or PlasmaOrdered By: Kristal Goldberg on 09-27-2021 CK [Catalytic activity/Vol] 181 U/L 22-269 [facility] Creatinine and Glomerular fi ltration rate.predicted panel (S/P/Bld)Ordered By: Kristal Goldberg on 09-27-2021 Creatinine [Mass/Vol] 1.36 mg/dL 0.64-1.27 [facility] Eosinophils Auto (Bld) [#/Vo l]Ordered By: Kristal Goldberg on 09-27-2021 Eosinophils (Bld) [#/Vol] 0.1 10*3/uL 0.0-0.45 [facility] Eosinophils/100 WBC Auto (Bl d)Ordered By: Kristal Goldberg on 09-27-2021 Eosinophils/100 WBC (Bld) 1.2 % . [facility] Erythrocyte distribution wid th Auto (RBC) [Ratio]Ordered By: Kristal Goldberg on 09-27-2021 Erythrocyte distribution width (RBC) [Ratio] 14.5 % 12.0-14.8 [facility] Estimated glomerular filtrat ion rate (GFR) non- AmericanOrdered By: Kristal Goldberg on 09-27-2021 GFR/1.73 sq M.predicted among non-blacks MDRD (S/P/Bld) [Vol rate/Area] > 60 mL/Min [facility] Globulin Calc (S) [Mass/Vol] Ordered By: Kristal Goldberg on 09-27-2021 Globulin (S) [Mass/Vol] 2.4 g/dL [facility] Hematocrit Auto (Bld) [Volum e fraction]Ordered By: Kristal Goldberg on 09-27-2021 Hematocrit (Bld) [Volume fraction] 40.8 % 38.8-50.0 [facility] Ketones Auto test strip (U) [Mass/Vol]Ordered By: Kristal Goldberg on 09-27-2021 Ketones (U) [Mass/Vol] Negative Negative [facility] - CoagulationOrde red By: Kristal Goldberg on 09-27-2021 PT Coag (PPP) [Time] 11.8 s 9.0-12.[address] [facility] - Hematology and Cell countsOrdered By: Kristal Goldberg on 09-27-2021 Nucleated RBC/100 WBC (Bld) [Ratio] 0.0 % 0-0.5 [facility] Lymphocytes Auto (Bld) [#/Vo l]Ordered By: Kristal Goldberg on 09-27-2021 Lymphocytes (Bld) [#/Vol] 1.8 10*3/uL 1.00-4.8 [facility] Lymphocytes/100 WBC Auto (Bl d)Ordered By: Kristal Goldberg on 09-27-2021 Lymphocytes/100 WBC (Bld) 31.2 % . [facility] MCH Auto (RBC) [Entitic mass ]Ordered By: Kristal Goldberg on 09-27-2021 MCH (RBC) [Entitic mass] 30.1 pg 27.5-35.2 [facility] MCHC Auto (RBC) [Mass/Vol]Or dered By: Kristal Goldberg on 09-27-2021 MCHC (RBC) [Mass/Vol] 33.4 g/dL 32.5-35.6 [facility] MCV Auto (RBC) [Entitic vol] Ordered By: Kristal Goldberg on 09-27-2021 MCV (RBC) [Entitic vol] 90.3 fL 83.5-101 [facility] Monocytes Auto (Bld) [#/Vol] Ordered By: Kristal Goldberg on 09-27-2021 Monocytes (Bld) [#/Vol] 0.3 10*3/uL 0.0-0.8 [facility] Monocytes/100 WBC Auto (Bld) Ordered By: Kristal Goldberg on 09-27-2021 Monocytes/100 WBC (Bld) 6.0 % . [facility] Neutrophils Auto (Bld) [#/Vo l]Ordered By: Kristal Goldberg on 09-27-2021 Neutrophils (Bld) [#/Vol] 3.5 10*3/uL 1.8-7.7 [facility] Neutrophils/100 WBC Auto (Bl d)Ordered By: Kristal Goldberg on 09-27-2021 Neutrophils/100 WBC (Bld) 61.3 % . [facility] No Panel InformationOrdered By: Kristal Goldberg on 09-27-2021 Estimated GFR () > 60 mL/Min [facility] Comment on above: GFR estimated refere nce range: According to KDOQI guidelines, <60 ml/min/1.73m2 is sufficient to diagnose a patient with chronic kidney disease. Pharmacy Creatinine Clearance (Chem 94.06 [facility] PROF CHEM 8 (BAS METB)on Anion gap [Moles/Vol] 10.0 mmol/L Normal [facility] Comment on above: Performed By: #### C MP #### [facility] [address] [address] [address] Nilay Gibbs Calcium [Mass/Vol] 9.4 mg/dL Normal 8.5-10.1 [facility] Comment on above: Performed By: #### C MP #### [facility] [address] [place] [address] Dr. Nilay Gibbs Chloride [Moles/Vol] 103 mmol/L Normal 98-107 [facility] Comment on above: Performed By: #### C MP #### [facility] [address] [place] [address] Dr. Nilay Gibbs CO2 [Moles/Vol] 27.6 mmol/L Normal 21.0-32.0 [facility] Comment on above: Performed By: #### C MP #### [facility] [address] [place] [address] Dr. Nilay Gibbs Creatinine [Mass/Vol] 1.39 mg/dL Critically high 0.70-1.30 [facility] Comment on above: Performed By: #### C MP #### [facility] [address] [place] [address] Dr. Nilay Gibbs EGFR-AF FINNISH >60 Normal >=60 [facility] Comment on above: Performed By: #### C MP #### [facility] [address] [address] [address] Nilay Gibbs EGFR-NON AF FINNISH 60 mL/min/1.73m2 Normal >=60 [facility] Comment on above: Performed By: #### C MP #### [facility] [address] [place] [address] Dr. Nilay Gibbs Glucose [Mass/Vol] 115 mg/dL Critically high 74-106 [facility] Comment on above: Performed By: #### C MP #### [facility] [address] [address] [address] Nilay Gibbs Potassium [Moles/Vol] 3.6 mmol/L Normal 3.5-5.1 [facility] Comment on above: Performed By: #### C MP #### [facility] [address] [address] [address] Nilay Gibbs Sodium [Moles/Vol] 137 mmol/L Normal 136-145 [facility] Comment on above: Performed By: #### C MP #### [facility] [address] [address] [address] Nilay Gibbs Urea nitrogen [Mass/Vol] 17.0 mg/dL Normal 7.0-18.0 [facility] Comment on above: Performed By: #### C MP #### [facility] [address] [place] [address] Dr. Nilay Gibbs Urea nitrogen/Creatinine [Mass ratio] 12.2 mg/mg Normal [facility] Comment on above: Performed By: #### C MP #### [facility] [address] [address] [address] Nilay Gibbs PROTIMEon 09-27-2021 INR Coag (PPP) [Relative time] 0.99 {INR} Normal [facility] Comment on above: Performed By: #### P T, PTT #### [facility] [address] [place] [address] Dr. Nilay Gibbs INR GUIDELINES SEE BELOW Normal [facility] Comment on above: Result Comment: [place] RED INR: 2.0 - 3.0 CONDITIONS NOT LISTED BELOW 2.5 - 3.5 FOR PROSTHETIC HEART VALVE REPLACEMENT 2.5 - 3.5 RECURRENT THROMBOSIS Performed By: #### P T, PTT #### [facility] [address] [address] [address] Nilay Gibbs PT Coag (PPP) [Time] 10.7 s Normal 9.0-11.6 [facility] Comment on above: Performed By: #### P T, PTT #### [facility] [address] [place], [place] [id number] Dr. Nilay Gibbs PTTon 09-27-2021 aPTT Coag (Bld) [Time] 29.1 s Normal 22.3-36.2 [facility] Comment on above: Performed By: #### P T, PTT #### [facility] [address] [place] [address] Dr. Nilay Gibbs Platelet mean volume Auto (B ld) [Entitic vol]Ordered By: Kristal Goldberg on 09-27-2021 Platelet mean volume (Bld) [Entitic vol] 8.7 fL 6.6-10.1 [facility] Platelet poor plasma interna tional normalized ratio (INR) by coagulation assay (relatOrdered By: Kristal Goldberg on 09-27-2021 INR Coag (PPP) [Relative time] 1.1 {INR} [facility] Comment on above: INR Therapeutic [...] 09-27-2021 Platelets (Bld) [#/Vol] 240 10*3/uL 150-450 [facility] Protein Auto test strip (U) [Mass/Vol]Ordered By: Kristal Goldberg on 09-27-2021 Protein (U) [Mass/Vol] Negative Negative [facility] Protein [Mass/volume] in Ser um or PlasmaOrdered By: Kristal Goldberg on 09-27-2021 Protein [Mass/Vol] 6.5 g/dL 6.1-7.9 [facility] RBC Auto (Bld) [#/Vol]Ordere d By: Kristal Goldberg on 09-27-2021 RBC (Bld) [#/Vol] 4.52 10*6/uL 3.90-5.60 [facility] Serum or plasma alanine marquez otransferase measurement without P-5'-P (enzymatic activiOrdered By: Kristal Goldberg on 09-27-2021 ALT No additional P-5'-P [Catalytic activity/Vol] 22 U/L 10-60 [facility] Serum or plasma albumin/glob ulin mass ratioOrdered By: Kristal Goldberg on 09-27-2021 Albumin/Globulin [Mass ratio] 1.7 {ratio} [facility] Serum or plasma alkaline kimi sphatase measurement (enzymatic activity/volume)Ordered By: Kristal Goldberg on 09-27-2021 ALP [Catalytic activity/Vol] 72 U/L 32-92 [facility] Serum or plasma aspartate am inotransferase measurement (enzymatic activity/volume)Ordered By: Kristal Goldberg on 09-27-2021 AST [Catalytic activity/Vol] 24 U/L 10-42 [facility] Serum or plasma calcium isabel urement (mass/volume)Ordered By: Kristal Goldberg on 09-27-2021 Calcium [Mass/Vol] 9.6 mg/dL 8.2-10.2 [facility] Serum or plasma chloride airam surement (moles/volume)Ordered By: Kristal Goldberg on 09-27-2021 Chloride [Moles/Vol] 98 mmol/L 95-[address] [facility] Serum or plasma creatine kin ase MB (CKMB)/total creatine kinase (CK) ratio by calculaOrdered By: Kristal Goldberg on 09-27-2021 CK.MB Calc [Catalytic fraction] 1.7 % 0.00-2.50 [facility] Serum or plasma creatine kin ase MB measurement (mass/volume)Ordered By: Kristal Goldberg on 09-27-2021 CK.MB [Mass/Vol] 3.1 ng/mL 0.6-6.3 [facility] Serum or plasma glucose isabel urement (mass/volume)Ordered By: Kristal Goldberg on 09-27-2021 Glucose [Mass/Vol] 94 mg/dL 70-100 [facility] Comment on above: ADA recommended refe [...] on 09-27-2021 Potassium [Moles/Vol] 3.9 mmol/L 3.5-5.1 [facility] Serum or plasma sodium measu rement (moles/volume)Ordered By: Kristal Goldberg on 09-27-2021 Sodium [Moles/Vol] 135 mmol/L 136-146 [facility] Serum or plasma total biliru bin measurement (mass/volume)Ordered By: Kristal Goldberg on 09-27-2021 Bilirubin [Mass/Vol] 0.8 mg/dL 0.3-1.[address] [facility] Serum or plasma total carbon dioxide measurement (moles/volume)Ordered By: Kristal Goldberg on 09-27-2021 CO2 [Moles/Vol] 24.8 mmol/L 22.0-30.0 [facility] Serum or plasma urea nitroge n measurement (mass/volume)Ordered By: Kristal Goldberg on 09-27-2021 Urea nitrogen [Mass/Vol] 13 mg/dL 9-23 [facility] TROPONIN, HIGH SENSITIVITYon 09-27-2021 HSTROP 4.5 pg/mL Normal 4.0-76.1 [facility] Comment on above: Result Comment: CUT- OFF POINTS HAVE BEEN ESTABLISHED BASED ON THE FOURTH UNIVERSAL DEFINITIONS OF MYOCARDIAL INFARCTION. THE UPPER REFERENCE LIMIT (URL) OF TROPONIN, DEFINED THE 99TH PERCENTILE OF cTnI DISTRIBUTION IN A REFERENCE POPULATION, HAS BEEN CONFIRMED THE DECISION THRESHOLD FOR SD DIAGNOSIS. Performed By: #### C #### [facility] [address] [address] [address] Nilay Gibbs Troponin I.cardiac [Mass/vol ume] in Serum or Plasma by High sensitivity methodOrdered By: Kristal Goldberg on 09-27-2021 Troponin I.cardiac High sensitivity method [Mass/Vol] < 3 pg/mL 0-20 [facility] Urine appearanceOrdered By: Kristal Goldberg on 09-27-2021 Appearance (U) Clear Clear [facility] Urine colorOrdered By: Aurora Goldberg on 09-27-2021 Color (U) Yellow Yellow [facility] Urine glucose measurement by automated test strip (mass/volume)Ordered By: Kristal Goldberg on 09-27-2021 Glucose Auto test strip (U) [Mass/Vol] Normal mg/dL Normal [facility] Urine hemoglobin detection b y automated test stripOrdered By: Kristal Goldberg on 09-27-2021 Hemoglobin Auto test strip Ql (U) Negative Negative [facility] Urine leukocyte esterase det ection by automated test stripOrdered By: Kristal Goldberg on 09-27-2021 Leukocyte esterase Auto test strip Ql (U) Negative Negative [facility] Urine nitrite detection by a utomated test stripOrdered By: Kristal Goldberg on 09-27-2021 Nitrite Auto test strip Ql (U) Negative Negative [facility] Urobilinogen Auto test strip (U) [Mass/Vol]Ordered By: Kristal Goldberg on 09-27-2021 Urobilinogen (U) [Mass/Vol] Normal mg/dL Normal [facility] pH Auto test strip (U)Ordere d By: Kristal Goldberg on 09-27-2021 pH (U) 1.005 [pH] 1.001-1.030 [facility] pH (U) 5.5 [pH] 5.0-9.0 [facility] XR SHOULDER 2V AP/TRUE AP LT on [...] Mild glenohumeral narrowing IMPRESSION: Mild glenohumeral arthrosis Sr. Strategic Sourcing Manager: [facility] Transcribe Date/Time: Nov 29 2020 10:37A Dictated by : ANNE VALDEZ MD This examination was interpreted and the report reviewed and electronically signed by: ANNE VALDEZ MD on Nov 29 2020 10:37AM EST [id number] [facility] US KIDNEY/BLADDERon 08-20-19 US KIDNEY/BLADDER * * *Final Report* * * DATE OF EXAM: Aug 19 2020 12:47PM [facility] 1055 - US KIDNEY/BLADDER / PROCEDURE [...] NORMAL SONOGRAPHIC APPEARANCE OF KIDNEYS AND BLADDER. Sr. Strategic Sourcing Manager: [email or web address] Transcribe Date/Time: Aug 19 2020 12:49P Dictated by : FLORENTIN PATEL MD This examination was interpreted and the report reviewed and electronically signed by: FLORENTIN PATEL MD on Aug 19 2020 12:49PM EST [id number] [facility] XR HAND 3V PA/LAT/OBL BILon [...] than left hand and superimposed degenerative change. Sr. Strategic Sourcing Manager: [employer] Transcribe Date/Time: Apr 02 2020 10:18A Dictated by : EDDA PAUL MD This examination was interpreted and the report reviewed and electronically signed by: EDDA PAUL MD on Apr 02 2020 10:25AM EST [id number] Normal [facility] CT LUMBAR SPINE WO CONTRASTo n [...] Mike Felipe MD 07/12/18 Final result Normal [facility] CT THORACIC SPINE WO CONTRAS Ton 07-12-2018 [...] Mike Felipe MD 07/12/18 Final result Normal [facility] Vital Signs Date Time Vital Sign Value Performing Clinician Florentin quinn 08-22-2023 12:40-0400 Body height 190.5 cm MD Leydi Aceves Work Phone: [facility] 08-22-2023 12:40-0400 Body mass index (BMI) [Ratio] 31.6 kg/m2 MD Leydi Aceves Work Phone: [facility] 08-22-2023 12:40-0400 Body temperature 98.6 [degF] MD Leydi Aceves Work Phone: [facility] 08-22-2023 12:40-0400 Body weight 114.81 kg MD Leydi Aceves Work Phone: [facility] 08-22-2023 12:40-0400 Heart rate 84 /min MD Leydi Aceves Work Phone: [facility] 08-22-2023 12:40-0400 Respiratory rate 18 /min MD Leydi Aceves Work Phone: [facility] 08-22-2023 12:40-0400 SaO2% (BldA) [Mass fraction] 97 % MD Leydi Aceves Work Phone: [facility] 06-24-2023 14:34-0400 Body mass index (BMI) [Ratio] 29.92 kg/m2 Delmy Boyle MD Work Phone: [facility] 06-24-2023 14:34-0400 Body weight 105.69 kg Delmy Boyle MD Work Phone: [facility] 06-24-2023 14:34-0400 Diastolic blood pressure 87 mm[Hg] Delmy Boyle MD Work Phone: [facility] 06-24-2023 14:34-0400 Heart rate 89 /min Delmy Boyle MD Work Phone: [facility] 06-24-2023 14:34-0400 Respiratory rate 18 /min Delmy Boyle MD Work Phone: [facility] 06-24-2023 14:34-0400 SaO2% (BldA) [Mass fraction] 100 % Delmy Boyle MD Work Phone: [facility] 06-24-2023 14:34-0400 Systolic blood pressure 124 mm[Hg] Delmy Boyle MD Work Phone: [facility] 01-01-2022 11:34-0400 Body weight 99.79 kg Delmy Boyle MD Work Phone: [facility] 01-01-2022 11:34-0400 Diastolic blood pressure 65 mm[Hg] Delmy Boyle MD Work Phone: [facility] 01-01-2022 11:34-0400 Heart rate 65 /min Delmy Boyle MD Work Phone: [facility] 01-01-2022 11:34-0400 Systolic blood pressure 102 mm[Hg] Delmy Boyle MD Work Phone: [facility] 12-10-2021 15:30-0400 Diastolic blood pressure 71 mm[Hg] MD Leydi Aceves Work Phone: [facility] 12-10-2021 15:30-0400 Heart rate 70 /min MD Leydi Aceves Work Phone: [facility] 12-10-2021 15:30-0400 Respiratory rate 16 /min MD Leydi Aceves Work Phone: [facility] 12-10-2021 15:30-0400 SaO2% (BldA) [Mass fraction] 98 % MD Leydi Aceves Work Phone: [facility] 12-10-2021 15:30-0400 Systolic blood pressure 113 mm[Hg] MD Leydi Aceves Work Phone: [facility] 12-10-2021 07:30-0400 Body temperature 98 [degF] MD Leydi Aceves Work Phone: [facility] 12-08-2021 15:45-0400 Body height 190.5 cm MD Leydi Aceves Work Phone: [facility] 12-08-2021 08:56-0400 Body weight 99.79 kg MD Leydi Aceves Work Phone: [facility] 09-27-2021 21:38-0400 Heart rate 68 /min MD Leydi Aceves Work Phone: [facility] 09-27-2021 21:30-0400 Diastolic blood pressure 79 mm[Hg] MD Leydi Aceves Work Phone: [facility] 09-27-2021 21:30-0400 Respiratory rate 20 /min MD Leydi Aceves Work Phone: [facility] 09-27-2021 21:30-0400 SaO2% (BldA) [Mass fraction] 100 % MD Leydi Aceves Work Phone: [facility] 09-27-2021 21:30-0400 Systolic blood pressure 135 mm[Hg] MD Leydi Aceves Work Phone: [facility] 09-27-2021 18:31-0400 Body height 190.5 cm MD Leydi Aceves Work Phone: [facility] 09-27-2021 18:31-0400 Body temperature 98 [degF] MD Leydi Aceves Work Phone: [facility] 09-27-2021 18:31-0400 Body weight 99.79 kg MD Leydi Aceves Work Phone: [facility] Encounters Encounter Date Encounter Type Care Provider Facility Start: 08-22-2023 End: 08-22-2023 ambulatory MD Leydi Aceves Work Phone: [facility] Work Phone: Start: 08-22-2023 End: 08-22-2023 Patient encounter procedure MD Leydi Aceves Work Phone: [facility] Work Phone: Start: 08-16-2023 Refill Delmy newton MD Work Phone: Rheumatology Comment on above: Refill Request Start: 08-03-2023 Registered Recurring MD Leydi Aceves Work Phone: [facility] Start: 08-03-2023 ambulatory Nicola Castellon acility:[facility] Start: 07-06-2023 ambulatory Delmy newton MD Work Phone: Rheumatology Start: 07-06-2023 Patient encounter procedure Delmy Boyle MD Work Phone: Rheumatology Comment on above: Flare up Start: 07-05-2023 Refill Delmy newton MD Work Phone: Rheumatology Comment on above: Refill Request Start: 06-24-2023 End: 06-24-2023 ambulatory LEYDI ACEVES Facility:[facility] Start: 06-24-2023 End: 06-24-2023 Patient encounter procedure Delmy Boyle MD Work Phone: Rheumatology Comment on above: Chronic tophaceous g out (Primary Dx); Encounter for long-term (current) use of medications; Stage 3 chronic kidney disease, unspecified whether stage 3a or 3b CKD (HCC); Idiopathic chronic gout of multiple sites with tophus Start: 06-21-2023 End: 06-21-2023 ambulatory DELMY BOYLE Facility:[facility] Start: 06-10-2023 End: 06-10-2023 ambulatory RUGEN M KETAN Not Available Start: 05-18-2023 End: 05-18-2023 ambulatory RUGEN M KETAN Not Available Start: 05-09-2023 End: 05-12-2023 ambulatory Nicola Leyva Facility:[facility] Start: 05-03-2023 End: 05-03-2023 ambulatory RUGEN M KETAN Not Available Start: 04-05-2023 Refill Leydi Barlowa Keena Mansfield Work Phone: [facility] Start: 03-08-2023 End: 03-08-2023 ambulatory DELMY BOYLE Facility:[facility] Start: 03-04-2023 End: 03-04-2023 ambulatory DELMY BOYLE Facility:[facility] Start: 02-24-2023 End: 02-24-2023 Emergency department patient visit Ladi Huber Facility:[facility] Start: 02-19-2023 End: 02-20-2023 ambulatory KAYCE Wilson [facility] Start: 01-12-2023 End: 01-12-2023 ambulatory MIRI REES Not Available Start: 11-13-2022 ambulatory Delmy newton MD Work Phone: Rheumatology Comment on above: Prednisone Start: 11-13-2022 E-mail encounter ranulfo m caregiver Delmy Boyle MD Work Phone: [facility] Start: 11-13-2022 Telephone encounter Delmy luna MD Work Phone: [facility] Comment on above: Patient Request Start: 08-14-2022 End: 08-14-2022 ambulatory DELMY BOYLE Facility:[facility] Start: 08-12-2022 End: 08-13-2022 ambulatory DELMY BOYLE Facility:[facility] Start: 07-24-2022 End: 07-24-2022 ambulatory MATIAS [...] stage 3a or 3b CKD ([facility]) Start: 12-19-2021 Refill Delmy newton MD Work Phone: Rheumatology Comment on above: Refill Request Start: 12-07-2021 End: 12-10-2021 Evaluation and management of inpatient MD Leydi Aceves Work Phone: [facility] Start: 12-06-2021 End: 12-07-[address] LEYDI [...] 07-13-2018 Emergency department patient visit LEYDI ACEVES [facility] Procedures Date Procedure Procedure Detail Performing Clinician Start: 08-19-2020 Adult depression screening assessment Delmy Boyle MD Work Phone: Start: 07-12-2018 Ct lumbar spine w/o contrast material LEYDI ACEVES Start: 07-12-2018 Ct thoracic spine w/ o contrast material LEYDI ACEVES Plan of Treatment Date Care Activity Detail Author Start: 06-01-2026 Urine microalbumin profile [facility] Start: 03-04-2024 Creatinine measurement Serum Creatinine [facility] Start: 01-04-2024 End: 01-04-2024 Patient encounter procedure 01/04/2024 8:20 AM EST Office Visit Rheumatology [address] [place] [address] [place] [address] [place] [address] FU 6-7 MON WITH MD Rheumatology Comment on above: FU 6-7 MON WITH MD Start: 10-31-2023 Influenza vaccination Influenza Vaccine (Season Ended) [facility] Start: 09-24-2023 End: 09-24-2023 Patient encounter procedure 09/24/2023 8:00 AM EDT Office Visit Rheumatology [address] [place] [address] Kelly Martell APRN.LEAF TINNER [address] [facility] [place] [address] FU 3-4 MON WITH STEFANIA Rheumatology Comment on above: FU 3-4 MON WITH STEFANIA Start: 08-29-2023 Influenza vaccination Influenza Vaccine (#1) [facility] Comment on above: Postponed from 10/30/2022 (Other Patient Reasons) Start: 08-13-2023 Serum Creatinine Serum Creatinine [facility] Start: 03-01-2023 Behavioral Health Screening Behavioral Health Screening [facility] Start: 01-01-2023 BP CONTROLLED (<130/80) BP CONTROLLED (<130/80) [facility] Start: 10-30-2022 Covid-19 Vaccine ( season) Covid-19 Vaccine ( season) [facility] Start: 10-30-2022 Influenza vaccination [facility] Start: 07-13-2022 End: 09-12-2022 Alanine aminotransferase [Enzymatic activity/volume] in Serum or Plasma ALT/SGPT Lab Routine Idiopathic chronic gout of multiple sites with [facility] Encounter for long-term (current) use of medications Expected: 07/13/2022 (Approximate), Expires: 09/12/2022 [facility] Work Phone: Comment on above: Expected: 07/13/2022 (Approximate), Expi res: 09/12/2022 Start: 07-13-2022 End: 09-12-2022 Albumin [Mass/volume] in Serum or Plasma ALBUMIN BLD Lab 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 Encounter for long-term (current) use of medications Expected: 07/13/2022 (Approximate), Expires: 09/12/2022 [facility] Work Phone: Comment on above: Expected: 07/13/2022 (Approximate), Expi res: 09/12/2022 Start: 07-13-2022 End: 09-12-2022 Aspartate aminotransferase [Enzymatic activity/volume] in Serum or Plasma AST/SGOT BLD Lab 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 Encounter for long-term (current) use of medications Expected: 07/13/2022 (Approximate), Expires: 09/12/2022 [facility] Work Phone: Comment on above: Expected: 07/13/2022 (Approximate), Expi res: 09/12/2022 Start: 07-13-2022 End: 09-12-2022 C reactive protein [Mass/volume] in Serum or Plasma C-REACTIVE PROTEIN (CRP) Lab 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 Encounter for long-term (current) use of medications Expected: 07/13/2022 (Approximate), Expires: 09/12/2022 [facility] Work Phone: Comment on above: Expected: 07/13/2022 (Approximate), Expi res: 09/12/2022 Start: 07-13-2022 End: 09-12-2022 CBC W Auto Differential panel - Blood CBC + DIFF Lab 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 Encounter for long-term (current) use of medications Expected: 07/13/2022 (Approximate), Expires: 09/12/2022 [facility] Work Phone: Comment on above: Expected: 07/13/2022 (Approximate), Expi res: 09/12/2022 Start: 07-13-2022 End: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 Chronic tophaceous gout- Primary Chronic [...] with tophus (tophi) [facility] Diagnosis 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) [facility] Diagnosis Onset Date Resolution Status Acute pansinusitis acute [facility] Work Phone: Hospital Discharge instructions Additional Instructions Rest Apply ice to affected area Avoid electronics Follow-up with neurology on Wednesday Tylenol Motrin if needed for discomfort Return here if you develop any numbness, tingling, unilateral weakness, unsteady gait, confusion or any other concerns[facility] Work Phone: Hospital Discharge instructions Additional Instructions Regular diet. 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 Advance Directive(s) 04/25/2017 12:32 PM Advance Directive Response Recorded Date/ Time Advance Directives No September 27 7:04pm Chief Complaint and Reason for Visit Chief Complaint sent by [facility]blurry vision/head swell Chief Complaint sent by [facility]/blurry vision/head swell Major Depression Reason [...] content) DATE CREATED AUTHOR 07/23/2018 Katie Christensen [facility] DATE CREATED AUTHOR AUTHOR'S ORGANIZ ATION 11/30/2020 [facility] DATE CREATED AUTHOR AUTHOR'S ORGANIZ ATION 11/11/2021 [facility] DATE CREATED AUTHOR AUTHOR'S ORGANIZ ATION 08/07/2022 [facility] DATE CREATED AUTHOR AUTHOR'S ORGANIZ ATION 2023 [facility] DATE CREATED AUTHOR AUTHOR'S ORGANIZ ATION 02/26/2023 Yovani Coughlin [facility] DATE CREATED AUTHOR AUTHOR'S ORGANIZ ATION 06/12/2023 [facility] EPIC DATE CREATED AUTHOR AUTHOR'S ORGANIZ ATION 06/26/2023 [facility] DATE CREATED AUTHOR AUTHOR'S ORGANIZ ATION 09/13/2023 [facility] ysician Group Source Comments (unrecognize d section and content) In the event this informatio n is protected by the Federal Confidentiality of Alcohol and Drug Abuse Patient Records regulations: The Federal rules restrict any use of the information to criminally investigate or prosecute any alcohol or drug abuse patient.[facility] the event this information is protected by the Federal Confidentiality of Alcohol and Drug Abuse Patient Records regulations: The Federal rules restrict any use of the information to criminally investigate or prosecute any alcohol or drug abuse patient.[facility] the event this information is protected by the Federal Confidentiality of Alcohol and Drug Abuse Patient Records regulations: The Federal rules restrict any use of the information to criminally investigate or prosecute any alcohol or drug abuse patient.[facility] HospitalIn the event this information is protected by the Federal Confidentiality of Alcohol and Drug Abuse Patient Records regulations: The Federal rules restrict any use of the information to criminally investigate or prosecute any alcohol or drug abuse patient.[facility] the event this information is protected by the Federal Confidentiality of Alcohol and Drug Abuse Patient Records regulations: The Federal rules restrict any use of the information to criminally investigate or prosecute any alcohol or drug abuse patient.[facility]In the event this information is protected by the Federal Confidentiality of Alcohol and Drug Abuse Patient Records regulations: The Federal rules restrict any use of the information to criminally investigate or prosecute any alcohol or drug abuse patient.[facility]In the event this information is protected by the Federal Confidentiality of Alcohol and Drug Abuse Patient Records regulations: The Federal rules restrict any use of the information to criminally investigate or prosecute any alcohol or drug abuse patient.[facility] the event this information is protected by the Federal Confidentiality of Alcohol and Drug Abuse Patient Records regulations: The Federal rules restrict any use of the information to criminally investigate or prosecute any alcohol or drug abuse patient.[facility] HospitalIn the event this information is protected by the Federal Confidentiality of Alcohol and Drug Abuse Patient Records regulations: The Federal rules restrict any use of the information to criminally investigate or prosecute any alcohol or drug abuse patient.[facility] HospitalIn the event this information is protected by the Federal Confidentiality of Alcohol and Drug Abuse Patient Records regulations: The Federal rules restrict any use of the information to criminally investigate or prosecute any alcohol or drug abuse patient.[facility] HospitalIn the event this information is protected by the Federal Confidentiality of Alcohol and Drug Abuse Patient Records regulations: The Federal rules restrict any use of the information to criminally investigate or prosecute any alcohol or drug abuse patient.[facility] HospitalIn the event this information is protected by the Federal Confidentiality of Alcohol and Drug Abuse Patient Records regulations: The Federal rules restrict any use of the information to criminally investigate or prosecute any alcohol or drug abuse patient.[facility] Care Teams (unrecognized sec tion and [...] August 22, 2023 End: August 22, 2023 Application Lead Relationship Specialty Start Date End Date Leydi Aceves PCP - General Family Practice 01/07/15 Team Status: Inactive Member Role Status Dates Leydi Aceves MD Primary Care Provider Active Juvenal Smith MD Emergency Provider Active Team Status: Inactive Member Role Status Dates Leydi Aceves MD Primary Care Provider Active Adam Young MD Admit Provider, Attending Provider Active Application Lead Relationship Specialty Start Date End Date Leydi Aceves PCP - General Family Medicine 01/07/15 Application Lead Relationship Specialty Start Date End Date Leydi Acevescris PCP - General [facility] Medicine 01/07/15 Application Lead Relationship Specialty Start Date End Date Leydi Acevescris PCP - General [facility] 01/07/15 Application Lead Relationship Specialty Start Date End Date Ketan Leydi Temple PCP - General [facility] Medicine 01/07/15 Application Lead Relationship Specialty Start Date End Date Leydi Aceves MD PCP - [facility] 01/07/15 Application Lead Relationship Specialty Start Date End Date Leydi Aceves MD PCP - General [facility] 01/07/15 Application Lead Relationship Specialty Start Date End Date Leydi Aceves MD [address] [place] [address] PCP - [facility] 07/29/22 Leydi Aceves MD [address] [place] [address] PCP - [facility] 05/30/22 Application Lead Relationship Specialty Start Date End Date Leydi Aceves MD [address] [place] [address] PCP - [facility] 07/29/22 Leydi Aceves MD [address] [place] [address] PCP [facility] 4/1/23 Application Lead Relationship Specialty Start Date End Date [place], Rugen Mabalay, MD PCP - General Family Medicine 01/07/15 Application Lead Relationship Specialty Start Date End Date Leydi Aceves MD PCP - General Family Medicine 01/07/15 Application Lead Relationship Specialty Start Date End Date Leydi [...] BE BASED ON THE PRIMARY CLINICAL RECORDS. [employer] provides no warranty or guarantee of the accuracy or completeness of information in this document.
--- NOTE | 2023-10-10 15:18 | XR_ITS ---
The [address] [address] Patient Name: TRU CARDOZA MRN: [id number] date: 1990 Sex: M Assigned Patient Location: ER Current Patient Location: Accession/Order Number: [id number] Exam Date: 10/10/2023 15:30 Report Date: 10/10/2023 16:18 At the request of: MARIA ELENA CLARK Procedure: XR chest 1V EXAM: XR chest 1V COMPARISON: 04/20/2023 CLINICAL INDICATION: Cough. FINDINGS: The cardiomediastinal silhouette is within normal limits. No focal consolidation. No pleural effusion. No pneumothorax. XR/XR chest 1V IMPRESSION: No evidence of acute cardiopulmonary abnormality. Electronically authenticated by: KELLY SHEARER Date: 10/10/2023 16:18
[2023-10-10 15:56] LABS: Influenza Virus A Antigen Negative; Influenza Virus B Antigen Negative; Internal Control Within Normal Limits
[2023-10-10 15:57] VITALS: PULSE 81; O2SAT 97
[2023-10-10] MEDS: IPRATROPIUM/ALBUTEROL SULFATE 3 ML AMPUL.NEB IH (15:57)
[2023-10-10 16:01] LABS: SARS-CoV-2 Ag POSITIVE (NEGATIVE)
--- NOTE | 2023-10-10 16:03 | ED.GENADUL1 ---
HPI HPI - General Adult General Chief complaint: Upper Respiratory Infection Stated complaint: headache Time Seen by Provider: 10/10/23 15:13 Source: patient Mode of arrival: walk-in Limitations: no limitations History of Present Illness HPI narrative: 33-year-old male presents to the emergency room with chief complaint of worsening symptoms for infection. Patient was seen here 2 nights ago for the same symptoms and denied a COVID swab. He was swabbed for strep which was negative. He was discharged home with prednisone prescription as he is also had a flare for his RA. Today he presents with worsening symptoms congestion and sore throat with headache. He is afebrile nontoxic lung sounds had scattered expiratory wheezing. He does not appear to distressed. He is not hypoxic. Related Data Home Medications ?Medication ?Instructions ?Recorded ?Confirmed amlodipine 10 mg tablet 10 mg PO QDAY 08/31/22 10/08/23 celecoxib 100 mg capsule 100 mg PO DAILY PRN RA flare 08/31/22 07/03/23 clonidine HCl 0.1 mg tablet 0.1 mg PO BID 08/31/22 10/08/23 colchicine 0.6 mg tablet 0.6 mg PO .every other 08/31/22 10/08/23 quetiapine 50 mg tablet See Rx Instructions PO .hs 08/31/22 10/08/23 tramadol 50 mg tablet 50 mg PO Q6H PRN pain 08/31/22 10/08/23 gabapentin 300 mg capsule 300 mg PO TID 02/15/23 10/08/23 (Neurontin) allopurinol 100 mg tablet 100 mg PO .QD 06/03/23 10/08/23 allopurinol 300 mg tablet 300 mg PO BID 06/03/23 10/08/23 Previous Rx's ?Medication ?Instructions ?Recorded prednisone 10 mg tablet 10 mg PO DAILY #42 tabs 07/03/23 prednisone 10 mg tablet See Rx Instructions .Route 08/31/23 .COMPLEX #30 tabs prednisone 20 mg tablet 20 mg PO BID 5 days #10 tabs 10/08/23 albuterol sulfate 90 mcg/actuation 2 inh inhalation Q4H PRN shortness 10/10/23 aerosol inhaler of breath or wheezing #8.5 grams Allergies Allergy/AdvReac Type Severity Reaction Status Date / Time No Known Drug Allergies Allergy Verified 10/08/23 19:08 Opioid HPI Opioid Management Most Recent Opioid Data: Last Pain Scale 9 10/08/23 19:29 Last ED Pain Assessment 10/08/23 19:15 Last ORT Total Score 10 06/03/23 01:22 Last ORT Risk Category High Risk 06/03/23 01:22 Ur Phencyclidine Scrn Negative (NEGATIVE) 06/02/23 22:15 PFSH PFSH Medical History Acute hypernatremia ?E87.0 - Hyperosmolality and hypernatremia (ICD-10) Altered mental status ?R41.82 - Altered mental status, unspecified (ICD-10) Sepsis ?A41.9 - Sepsis, unspecified organism (ICD-10) Acute kidney injury ?N17.9 - Acute kidney failure, unspecified (ICD-10) MONO (generalized anxiety disorder) ?F41.1 - Generalized anxiety disorder (ICD-10) Rheumatoid arthritis ?M06.9 - Rheumatoid arthritis, unspecified (ICD-10) Benign essential hypertension ?I10 - Essential (primary) hypertension (ICD-10) Gouty arthritis ?M10.9 - Gout, unspecified (ICD-10) Acute postoperative pain of knee ?G89.18 - Other acute postprocedural pain (ICD-10) ?M25.569 - Pain in unspecified knee (ICD-10) Visit for wound check ?Z51.89 - Encounter for other specified aftercare (ICD-10) Septic prepatellar bursitis of right knee ?M71.161 - Other infective bursitis, right knee (ICD-10) Acute viral syndrome ?B34.9 - Viral infection, unspecified (ICD-10) Diarrhea ?R19.7 - Diarrhea, unspecified (ICD-10) Rheumatoid arthritis flare ?M06.9 - Rheumatoid arthritis, unspecified (ICD-10) Polyarthralgia ?M25.50 - Pain in unspecified joint (ICD-10) Rheumatoid arthritis flare ?M06.9 - Rheumatoid arthritis, unspecified (ICD-10) Weakness ?R53.1 - Weakness (ICD-10) Mild shortness of breath ?R06.02 - Shortness of breath (ICD-10) Headache ?R51.9 - Headache, unspecified (ICD-10) Polyarthralgia ?M25.50 - Pain in unspecified joint (ICD-10) Flare of rheumatoid arthritis ?M06.9 - Rheumatoid arthritis, unspecified (ICD-10) Arthralgia ?M25.50 - Pain in unspecified joint (ICD-10) Drug-seeking behavior ?Z76.5 - Malingerer [conscious simulation] (ICD-10) Surgical History (Updated 04/20/23 @ 23:12 by April Sierra RN) Total knee replacement status ?Z96.659 - Presence of unspecified artificial knee joint (ICD-10) H/O shoulder surgery ?Z98.890 - Other specified postprocedural states (ICD-10) Social History (Updated 04/20/23 @ 23:15 by April Sierra RN) Smoking status: Never smoker Nicotine containing products detail: chew tobacco Highest level of school completed/degree received: decline to answer Exam Constitutional Vital Signs, click to edit/add: Last Vital Signs Temp 97.8 F 10/10/23 15:11 Pulse 81 10/10/23 15:57 Resp 20 10/10/23 15:11 BP 154/94 H 10/10/23 15:11 Pulse Ox 97 10/10/23 15:57 O2 Del Method Room Air 10/10/23 15:57 Course Vital Signs Vital signs: Vital Signs Temperature 97.8 F 10/10/23 15:11 Pulse Rate 87 10/10/23 15:11 Respiratory Rate 20 10/10/23 15:11 Blood Pressure 154/94 H 10/10/23 15:11 Pulse Oximetry 97 10/10/23 15:11 Oxygen Delivery Method Room Air 10/10/23 15:11 Temperature 97.8 F 10/10/23 15:11 Pulse Rate 81 10/10/23 15:57 Respiratory Rate 20 10/10/23 15:11 Blood Pressure 154/94 H 10/10/23 15:11 Pulse Oximetry 97 10/10/23 15:57 Oxygen Delivery Method Room Air 10/10/23 15:57 Medical Decision Making MDM Narrative Medical decision making narrative: 33-year-old male presents to the emergency room with chief complaint of worsening symptoms for infection. Patient was seen here 2 nights ago for the same symptoms and denied a COVID swab. He was swabbed for strep which was negative. He was discharged home with prednisone prescription as he is also had a flare for his RA. Today he presents with worsening symptoms congestion and sore throat with headache. He is afebrile nontoxic lung sounds had scattered expiratory wheezing. He does not appear to distressed. He is not hypoxic. Story infection and worsening symptoms. He had scattered EXTR wheezing medicated here with a DuoNeb breathing treatment. He is positive for COVID. Patient's x-ray does not show any sign of pneumonia or other issues. He will be discharged home with an albuterol inhaler he does have steroids for home as well. Patient encouraged to follow-up with primary care physician. He is given upper respiratory infection instructions. Patient no questions at discharge. Differential Diagnosis Differential Diagnosis: uri, bronchitis, covid Medical Records Medical records reviewed: Yes I reviewed the patient's medical records Lab Data Lab results reviewed: Yes I reviewed the patient's lab results Labs: Lab Results 10/10/23 Range/Units 15:15 Influenza Type A Ag Negative Influenza Type B Ag Negative SARS-CoV-2 Ag (CV2AG) Positive A (NEGATIVE) Imaging Data Chest x-ray: Attestation: I have reviewed the pertinent imaging results. Radiologist's impression: ITS Impressions Chest X-Ray 10/10/23 15:18 IMPRESSION: No evidence of acute cardiopulmonary abnormality. Electronically authenticated by: KELLY SHEARER Date: 10/10/2023 16:18 Discharge Plan Discharge Stand Alone Forms: Portal Instructions Chief Complaint: Upper Respiratory Infection Clinical Impression: COVID Patient Disposition: Home, Self-Care Time of Disposition Decision: 16:00 Condition: Good Prescriptions / Home Meds: New albuterol sulfate 90 mcg/actuation HFA aerosol inhaler 2 inh inhalation Q4H PRN (Reason: shortness of breath or wheezing) Qty: 8.5 0RF No Action gabapentin [Neurontin] 300 mg capsule 300 mg PO TID allopurinol 100 mg tablet 100 mg PO .QD Patient Comments: TOTAL DOSE IS 400MG QD allopurinol 300 mg tablet 300 mg PO BID prednisone 10 mg tablet 10 mg PO DAILY Qty: 42 0RF Rx Instructions: Take six Tablets daily for two days. Take five tablets daily for two days. Take four tablets daily for two days. Take three tablets daily for two days. Take two tablets daily for two days. Take one tablet daily for two days. prednisone 10 mg tablet See Rx Instructions .ROUTE .COMPLEX Qty: 30 0RF Rx Instructions: 4 by mouth daily for three days then 3 by mouth daily for three days then 2 by mouth daily for three days then 1 by mouth daily for three days tramadol 50 mg tablet 50 mg PO Q6H PRN (Reason: pain) quetiapine 50 mg tablet See Rx Instructions PO .hs Patient Comments: per pt. 50mg with 25mg Rx Instructions: 75 orally HS; colchicine 0.6 mg tablet 0.6 mg PO .every other clonidine HCl 0.1 mg tablet 0.1 mg PO BID celecoxib 100 mg capsule 100 mg PO DAILY PRN (Reason: RA flare) amlodipine 10 mg tablet 10 mg PO QDAY prednisone 20 mg tablet 20 mg PO BID 5 Days Qty: 10 0RF Print Language: Macanese Instructions: Upper Respiratory Infection (ED), Social Distancing Guidelines for COVID-19 (ED) Referrals: LEYDI ACEVES [Primary Care Provider] - 1 week Discharge Date/Time: 10/10/23 16:11
== END 2023-10-10 16:11 | disposition home or self-care (01) ==
PROVIDERS: Emergency Provider Emergency Medicine; PCP Family Medicine
DX: U07.1 COVID-19 (principal); F17.220 Nicotine dependence, chewing tobacco, uncomplicated
CPT/HCPCS: 71045; 87502; 87804; 87811; 94640; 99285

== ENCOUNTER 2024-01-11 08:38 | Emergency (ER) | payer OTHER, SELFPAY ==
[2024-01-11 08:43] VITALS: BP 127/89; PULSE 94; TEMP 36.8; O2SAT 99; BMI 29.5
--- OUTSIDE RECORDS SUMMARY | 2024-01-11 09:00 | XMS_ITS | CCD ---
Author Organization [facility] Care Team Providers Care 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 Name Role Phone LEYDI ACEVES Primary Care [...] Attending Unavailable LIBERTAD ., ZHAO Admitting Unavailable ZHAO DAWSON Attending Unavailable MR DOUGLAS CISNEROS Consulting Unavailable KETAN, DR HOLLEY Primary Care Unavailable MATIAS MCINTYRE Attending Unavailable ISIS DUFF Consulting UnavailKeeley [...] Unavailable HAY ., DR DUGGAN Admitting Unavailable Eustace MD [facility] Primary Care Provider KAYCE COFFMAN Referring Unavailable KETAN, LEYDI Primary Care Unavailable Ladi Huber Attending Unavailable Ketan Leydi CABRAL Primary Care Provider [phone] Leydi Aceves MD Unavailable Ketan CABRAL [facility] Provider [phone] MD Leydi Aceves Primary Care Provider [phone] MD Nicola Leyva Attending Provider [phone] Nicola Leyva Attending Unavailab le Ketan, Bechago Primary Care Unavailable Adam Young Admitting Unavailable Nicola Leyva Attending Unavailab le Eustace, Leydi Primary Care Unavailable Nciola Leyva Admitting Unavailab MARINA Bynum Attending Unavailable LEYDI ACEVES Attending Unavailable LEYDI ACEVES Attending Unavailable LEYDI ACEVES Attending Unavailable KETANLEYDI Redding Attending Unavailable Wednesday THRASHER FEEDER, [place] Unavailable DELMY BOYLE Referring Unavailable KETAN, [facility] Primary Care Unavailable DELMY BOYLE Referring Unavailable KETAN, [facility] Primary Care Unavailable DELMY BOYLE Attending Unavailable KETAN, [facility] Primary Care Unavailable DELMY BOYLE Referring Unavailable KETAN, [facility] Primary Care Unavailable KETAN, [facility] Primary Care Unavailable DELMY BOYLE Attending Unavailable DELMY BOYLE Referring Unavailable KETAN, [facility] Primary Care Unavailable MANZON, DELMY D Attending Unavailable KETAN [facility] Unavailable Medications Current Medications Medication Drug Class(es) Dates Sig (Normalized) Sig (Original) [id number] 200 actuat albuterol 0.09 mg/actuat metered dose inhaler (4 sources) beta2-Adrenergic Agonist Start: 10-10-2023 albuterol HFA 90 mcg/act inhaler 10/10/2023 Active allopurinol 100 mg oral tablet (20 sources) Xanthine Oxidase Inhibitor Start: 06-24-2023 allopurinol (ZYLOPRIM) 100 mg tablet 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 Take two 300 mg tabs (600 mg) + one and a half 100 mg tabs (150 mg) =750 mg daily 90 tablet 1 06/24/2023 Active Start: 05-09-2023 Allopurinol Ac tive 300 MG PO Daily May 09, 2023 1:00am take with Allopurinol 100mg tablet to =400mg Start: 03-08-2023 take 1 tablet by barbara once daily allopurinol (Zyloprim) 100 MG tablet Take 100 mg by mouth Daily Take with Allopurinol 3oomg (2 tabs)=700mg total 03/08/2023 Active Start: 03-08-2023 End: 06-24-2023 Allopurinol Active 100 MG PO Daily May 09, 2023 1:00am take with Allopurinol 300mg tablet to =400mg Start: 01-01-2022 take 2 tablets by mo [facility] in the morning allopurinol (Zyloprim) 300 MG tablet Take 600 mg by mouth in the morning. 01/01/2022 Active Start: 01-01-2022 End: 06-27-2022 take 3 tablets by mouth in the morning allopurinol (ZYLOPRIM) 100 mg tablet 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 TAKE 1/2 TABLET BY MOUTH IN THE MORNING WITH 300MG 45 tablet 1 06/27/2022 Active Start: 12-07-2021 End: 06-24-2023 allopurinol (ZYLOPRIM) 300 m g tablet 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 Using 300 mg and 100 mg tabs, take 700 mg daily (in divided doses) 180 tablet 1 03/08/2023 06/24/2023 Discontinued Start: 05-30-2021 End: 08-05-2021 allopurinol (ZYLOPRIM) 100 [...] WITH 300MG ALPRAZolam 0.5 mg oral tablet (20 sources) Benzodiazepine Start: End: take 1 tablet by mouth in the morning ALPRAZolam (Xanax) 0.5 MG tablet Indications: Anxiety Take 1 tablet (0.5 mg) by mouth in the morning and 1 tablet (0.5 mg) before bedtime. 60 tablet 12/07/2023 Active Start: 05-09-2023 take 0.5 mg by mouth three times [...] 12:00am May 09, 2023 1:47am Start: 08-28-2019 End: 01-04-2024 take 1 tablet by mouth twice daily ALPRAZolam (XANAX) 0.25 mg tablet Take 0.25 mg by mouth twice daily. 08/28/2019 01/04/2024 Discontinued Comment on above: Take 0.25 mg by mout h twice daily. amLODIPine 10 mg oral tablet (20 sources) Dihydropyridine Calcium Channel Nilton Start: 07-05-19 take 1 tablet by mouth once daily amLODIPine (Norvasc) 10 MG tablet Indications: Essential hypertension (CMS/HCC) TAKE 1 TABLET BY MOUTH EVERY DAY FOR 100 DAYS 100 tablet 3 07/05/2023 Active Start: 12-07-2021 End: 05-09-2023 take 10 mg by mouth once daily [...] mg / clavulanate 125 mg oral tablet (2 sources) Penicillin-class Antibacterial Start: End: take 1 tablet by mouth in the morning amoxicillin-clavula roberto (Augmentin) 875-125 MG tablet Indications: Chronic obstructive pulmonary disease, unspecified COPD type (CMS/HCC) Take 1 tablet (875 mg) by mouth in the morning and 1 tablet (875 mg) in the evening. Take with meals. Do all this for 7 days. 14 tablet 12/24/2023 12/31/2023 Active Start: 08-22-2023 take 1 tablet by barbara th twice daily Amoxicillin-Pot Clavulanate Active 1 TAB PO Twice daily 18 12August 22, 2023 12:00am benzonatate 200 mg oral capsule (1 source) Non-narcotic Antitussive Start: 12-24-2023 End: 12-31-2023 take 1 capsule by mouth three times daily as needed for cough benzonatate (Tessalon) 200 MG capsule Indications: Chronic obstructive pulmonary disease, unspecified COPD type (CMS/HCC) Take 1 capsule (200 mg) by mouth 3 (three) times a day as needed for cough for up to 7 days Do not crush or chew. 21 capsule 12/24/2023 12/31/2023 Active brexpiprazole 2 mg oral tablet (5 sources) Atypical Antipsychotic Start: 07-09-2023 take 1 tablet by mouth once daily Brexpiprazole (Rexulti) 2 MG tablet Indications: Anxiety Take 1 tablet by mouth Daily 30 tablet 3 07/09/2023 Active carvedilol 6.25 mg oral tablet (8 sources) alpha-Adrenergic Nilton, beta-Adrenergic Nilton Start: 12-07-2021 End: 05-09-2023 take 1 tablet by mouth twice daily at mealtime carvedilol (Coreg) 6.25 MG tablet Indications: Essential (primary) hypertension (CMS/HCC) TAKE 1 TABLET BY MOUTH TWICE A DAY WITH FOOD 180 tablet 3 09/21/2022 Active celecoxib 100 mg oral capsule (4 sources) Nonsteroidal Anti-inflammatory Drug Start: 12-07-2021 End: 05-09-2023 take 1 capsule by mouth in the morning celecoxib (CeleBREX) 100 MG capsule Take 100 mg by mouth in the morning and 100 mg before bedtime. 0 03/17/2022 Active cloNIDine hydrochloride 0.1 mg oral tablet (9 sources) Central alpha-2 Adrenergic Agonist Start: 08-09-2023 take 1 tablet by mouth twice daily cloNIDine (Catapres) 0.1 MG tablet Indications: Essential hypertension (CMS/HCC) TAKE 1 TABLET BY MOUTH TWICE A DAY 180 tablet 3 08/09/2023 Active Start: 12-07-2021 End: 05-09-2023 take 1 tablet by mouth twice daily cloNIDine (Catapres) 0.1 MG tablet Indications: Essential hypertension (CMS/HCC) TAKE 1 TABLET BY MOUTH TWICE A DAY 180 tablet 3 08/09/2023 Active colchicine 0.6 mg oral tablet (20 sources) Start: 05-30-2021 End: 05-09-2023 take 1 tablet by mouth every other day colchicine 0.6 MG tablet Indications: 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) Take 1 tablet (0.6 mg) by mouth every other day 100 tablet 1 04/26/2023 Active Comment on above: Take 1 tablet by barbara th every other day. TAKE 1 TABLET BY BARBARA TH EVERY OTHER DAY doxycycline hyclate 100 mg oral tablet (2 sources) Tetracycline-c lass Drug Start: 02-16-2023 take 1 tablet by mouth in the morning doxycycline (Vibra-Tabs) 100 MG tablet Take 100 mg by mouth in the morning and 100 mg before bedtime. 0 02/16/2023 Active gabapentin 300 mg oral capsule (7 sources) Anti-epileptic Agent Start: 08-26-2023 take 1 capsule by mouth at bedtime gabapentin (Neurontin) 300 MG capsule Indications: Other chronic pain TAKE 1 CAPSULE BY MOUTH IN THE MORNING, EVENING AND BEFORE BEDTIME 90 capsule 4 08/26/2023 Active Start: 08-22-2023 End: 08-22-2023 take 300 mg [...] BEFORE BEDTIME 100 capsule 3 03/08/2023 Active lidocaine 0.018 mg/mg medicated patch (3 sources) Antiarrhythmic, Amide Local Anesthetic Start: 01-04-2024 apply 1 dose transdermal route once daily, then apply 1 dose transdermal route every twelve hours lidocaine (ZTLIDO) 1.8 % patch Indications: Stage 3 chronic kidney disease, unspecified whether stage 3a or 3b CKD (HCC) , Other secondary osteoarthritis of multiple sites Apply 1 Patch to affected area once daily. Remove patch after 12 hours. 30 Patch 01/04/2024 Active ondansetron 4 mg disintegrating oral tablet (2 sources) Serotonin-3 Receptor Antagonist Start: 01-11-2023 take 1 tablet by mouth every eight hours as needed ondansetron ODT (Zofran-ODT) 4 MG disintegrating tablet Take 4 mg by mouth every 8 (eight) hours if needed. 0 01/11/2023 Active predniSONE 10 mg oral tablet (11 sources) Start: 11-30-2023 End: 12-16-2023 take 4 tablets by mouth once daily, then take 3 tablets by mouth once daily, then take 2 tablets by mouth once daily, then take 1 tablet by mouth once daily predniSONE (Deltasone) 10 MG tablet Indications: 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) Take 4 tablets (40 mg) by mouth Daily for 4 days, THEN 3 tablets (30 mg) Daily for 4 days, THEN 2 tablets (20 mg) Daily for 4 days, THEN 1 tablet (10 mg) Daily for 4 days. 40 tablet 11/30/2023 12/16/2023 Active Start: 02-24-2023 take 5 tablets by mo uth once daily predniSONE (Deltasone) 10 MG tablet TAKE 5 TABS BY MOUTH DAILY X5DAYS,4 TABS X5DAYS,3 TABS X5DAYS,2 TABS X5DAYS,1 TAB X5DAYS DIRECTED 0 02/24/2023 Active Start: 11-13-2022 End: 01-04-2024 predniSONE (DELTASONE) 5 mg tablet Take 6 tab in AM on day 1 then reduce dose by 1 tablet every day until off 21 tablet 07/07/2023 01/04/2024 Discontinued Comment on above: Take 6 tab in AM on day 1 then reduce dose by 1 tablet every day until off QUEtiapine 100 mg oral tablet (12 sources) Atypical Antipsychotic Start: take 1 tablet by mouth at bedtime QUEtiapine (SEROquel) 100 MG tablet Take 100 mg by mouth at bedtime 06/29/2023 Active Start: 05-09-2023 End: 05-12-2023 take 75 mg by mouth at bedtime Quetiapine Discontinued 75 MG PO Bedtime May 09, 2023 1:00am May 12, 2023 7:53am Start: 12-07-2021 End: 05-09-2023 take 1 tablet by mouth at bedtime QUEtiapine (SEROquel) 25 MG tablet Take 25 mg by mouth at bedtime. 0 02/16/2022 Active take 1 tablet by barbara at bedtime QUEtiapine (SEROquel) 50 MG tablet Take 50 mg by mouth at bedtime. 0 Active traMADol hydrochloride 50 mg oral tablet (20 sources) Opioid Agonist Start: 11-12-2023 End: 02-06-2024 take 1 tablet by mouth once traMADol (Ultram) 50 MG tablet Indications: 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) Take 1 tablet (50 mg) by mouth every 12 (twelve) hours if needed for moderate pain 60 tablet 01/07/2024 02/06/2024 Active Start: 06-24-2023 End: 01-04-2024 take 1 tablet by mouth twice daily as needed for pain traMADol (ULTRAM) 50 mg tablet Indications: Chronic tophaceous gout Take 1 tablet by mouth two times a day as needed for pain for up to 7 days. FOR SHORT TERM USE ONLY. 10 tablet 06/24/2023 01/04/2024 Discontinued Start: 05-09-2023 End: 08-22-2023 take 50 mg [...] on above: Take 1 tablet by barbara every 8 hours as needed for Pain [...] daily 45 15 December 10, 2021 12:00am May 09, 2023 [...] 09, 2023 1:00am August 22, 2023 12:35pm 12 hr buPROPion hydrochloride 100 mg extended release oral tablet (13 sources) Aminoketone Start: 10-08-2019 End: 01-04-2024 take 1 tablet by mouth twice daily buPROPion SR (WELLBUTRIN SR) 100 mg 12 hr tablet Take 100 mg by mouth twice daily. 10/08/2019 01/04/2024 Discontinued Comment on above: Take 100 mg by mouth twice daily. busPIRone hydrochloride 5 mg oral tablet (1 [...] 10, 2021 12:00am May 09, 2023 1:48am Naloxone (1 source) Opioid Antagonist Start: 08-22-2023 [...] Problem Date Documented Date Episodic/Chronic Adjustment disorders (6 sources) Adjustment disorder with depressed mood; Translations: [Adjustment disorder with depressed mood] Onset: 07-29-2022 07-29-2022 Chronic Alcohol-related disorders (1 source) Alcohol dependence with intoxication, unspecified; Translations: [ALCOHOL DEPEND W/INTOX UNS] Onset: 12-15-2021 Chronic Anxiety disorders (7 sources) Anxiety; Translations: [Anxiety disorder, unspecified] Onset: 07-29-2022 07-29-2022 Chronic Chronic kidney disease (9 sources) Chronic kidney disease stage 3; Translations: [Stage 3 chronic kidney disease, unspecified whether stage 3a or 3b CKD (HCC)] Onset: 07-29-2022 Chronic E Codes: Natural/environment (1 source) Exposure to other specified factors, initial encounter; Translations: [EXPOSURE OTHER SPEC FACTORS INITIAL] Onset: 07-27-2022 Episodic Essential hypertension (6 sources) Essential hypertension; Translations: [Essential (primary) hypertension] [...] without status migrainosus] 09-27-2021 Chronic Immunity disorders (6 sources) Immunodeficiency disorder; Translations: [Immunodeficiency, unspecified] Onset: 07-29-2022 07-29-2022 Chronic Mood disorders (5 sources) Recurrent major depressive episodes, moderate ; Translations: [Major depressive disorder, recurrent, moderate] Onset: 12-15-2021 12-08-2021 Chronic Nutritional deficiencies (6 sources) Vitamin D deficiency; Translations: [Vitamin D deficiency, unspecified] Onset: 07-29-2022 07-29-2022 Chronic Osteoarthritis (9 sources) Localized, primary osteoarthritis of the shoulder region; Translations: [Primary osteoarthritis, unspecified shoulder] Onset: 07-29-2022 07-29-2022 Chronic Other aftercare (2 sources) Patient encounter status; Translations: [Other terminal supervisor (current) drug therapy] Episodic Other aftercare (2 sources) Long-term current use of drug therapy; Translations: [Other terminal supervisor (current) drug therapy] 01-04-2024 Episodic Other connective tissue disease (4 sources) Other specified soft tissue disorders; Translations: [OTHER SPEC SOFT TISSUE DISORDERS] Onset: 06-30-2022 Episodic Other connective tissue disease (3 sources) Pain in right arm; Translations: [PAIN IN RIGHT ARM] Onset: 05-31-2022 Episodic Other nervous system disorders (20 sources) Chronic pain; Translations: [Other chronic pain] Onset: 04-26-2017 04-26-2017 Chronic Other non-traumatic joint disorders (1 source) Polyarthritis, unspecified; Translations: [POLYARTHRITIS UNSPECIFIED] Onset: 04-02-2022 Chronic Other non-traumatic joint disorders (6 sources) Polyarthropathy; Translations: [Polyarthritis, unspecified] Onset: 2015 [...] Spondylosis; intervertebral disc disorders; other back problems (6 sources) Degeneration of cervical intervertebral disc; Translations: [Other cervical disc degeneration, unspecified cervical region] Onset: 12-16-2022 12-16-2022 Chronic Substance-related disorders (20 sources) Nicotine dependence; Translations: [Nicotine dependence, unspecified, [...] Translations: [LOW BACK PAIN, UNSPECIFIED] Onset: 01-16-2022 Viral infection (5 sources) Viral infection, unspecified; Translations: [Disease caused by 2019-nCoV] Onset: 02-03-2022 10-11-2023 Episodic Past or Other Problems Problem Classification Problem Date Documented Da te Episodic/Chronic Deficiency and other anemia (6 sources) Anemia; Translations: [Anemia, unspecified] Onset: 2015 12-16-2022 Episodic E Codes: Unspecified (1 source) Blood alcohol level of 240 mg/100 ml or more; Translations: [BLOOD ALCOHOL LV 240 MG/100 ML/MORE] Onset: 12-15-2021 Episodic Fluid and electrolyte disorders (6 sources) Hyponatremia; Translations: [Hypo-osmolality and hyponatremia] Onset: 2015 12-16-2022 Episodic Malaise and fatigue (3 sources) Weakness; Translations: [WEAKNESS] Onset: 01-31-2022 Episodic Other aftercare (3 sources) Other terminal supervisor (current) drug therapy; Translations: [OTH PMP PROJECT MANAGER CURRENT DRUG THERAPY] Onset: 06-30-2022 Episodic Other connective tissue disease (1 source) Other muscle spasm; Translations: [OTHER MUSCLE SPASM] Onset: 10-21-2021 Episodic Other connective tissue disease (6 sources) Full thickness rotator cuff tear; Translations: [Complete rotator cuff tear or rupture of unspecified shoulder, not specified as traumatic] Onset: 07-29-2022 07-29-2022 Episodic Other connective tissue disease (6 sources) Tear of left rotator cuff; Translations: [...] [PAIN IN UNSPECIFIED JOINT] Onset: 02-03-2022 Episodic Poisoning by other medications and drugs (4 sources) Poisoning by unspecified drugs, medicaments and biological substances, accidental (unintentional), initial encounter; Translations: [Poisoning by unspecified drug or medicinal substance] Onset: 06-10-2023 06-10-2023 Episodic Residual codes; unclassified (6 sources) Insomnia; Translations: [Insomnia, unspecified] Onset: 07-29-2022 07-29-2022 Episodic Spondylosis; intervertebral disc disorders; other back problems (7 sources) Muscle spasm of back; Translations: [Cervicalgia] Onset: 09-30-2021 Episodic Suicide and intentional self-inflicted injury (4 sources) Suicidal ideations; Translations: [SUICIDAL IDEATIONS] Onset: 12-06-2021 Episodic Syncope (6 sources) Vasovagal syncope; Translations: [Syncope and collapse] Onset: 12-16-2022 12-16-2022 Episodic Unclassified (1 source) LOW BACK PAIN, UNSPECIFIED; Translations: [LOW BACK PAIN, UNSPECIFIED] Onset: 01-14-2022 Results Test Name Value Interpretation Reference Range Facility [facility] 01-04-2024 [facility] Office Visit (ANA ) -- NANINICK M ([id number]) 1990 M Date Time Provider Department 01/04/24 8:20 AM DELMY BOYLE [facility] During your visit today, we recorded the following information about you: Pulse Respiration Blood pressure Weight 84/minute 18/minute 110/77 107.4 kg Height 1.88 m Delmy Boyle MD 01/04/2024 8:58 AM Signed DX: chronic tophaceous gout, possible seronegative [...] arthritic flares once every 4 months[address]ometer assembler [address] Jaime in [place] who did diagnostic knee aspiration which according to patient was positive for uric acid crystals. Treated with steroids and continued allopurinol. He has not seen Dr. Jaime since 2014. In 2014, he was hospitalized in [place] for acute polyarthritis. Saw galvanometer assembler while in hospital who told him that he possibly had RA. Discharged on steroids. His PCP switched him from allopurinol to Uloric Jan 2017. He also takes colchicine prn. No reduction in frequency or severity of his joint flares with Uloric. In 2017, he has been hospitalized 7-8 times for acute joint flares. Each time he is treated with steroids. Hospitalized at [facility] Apr 2017 for acute flare of [...] PMH: possible seronegative RA, CKD On allopurinol 750 mg daily+colchicine 0.6 mg qod PLAN: 1. TOPHACEOUS GOUT -off Uloric with increase in his SUA from 5.7 to 11.1 mg/dL. He is unable to afford OOP costs of Uloric. -We had previously discussed Krystexxa infusion but he declined because he is not able to travel and take time off every 2 weeks for the infusion. -SUA at goal (4.7) -continue allopurinol AND colchicine -I asked that he have labs done at least 3-4 days prior to next appointment (lab orders in EMR) 2. OSTEOARTHRITIS -oral NSAIDs avoided d/t CKD -prescribed Tramadol by PCP. Refills deferred to PCP -check XR knees and feet -referral to ortho ordered to consider possible intra-articular knee injections. -in meantime, suggested trial of lidoderm patches 3. POSSIBLE SERONEGATIVE RA -methotrexate 20 mg weekly held June 2019 due to anemia and elevated Cr. -no synovitis on exam -hold off on DMARDs for now. 4. LEFT SHOULDER ROTATOR CUFF TEAR/ADHESIVE CAPSULITIS/LABRAL TEAR [...] shoulder surgery by Dr. Tc Coffey at [facility]. No post op complications. Was in PT 5. GENERAL HEALTH MAINTENANCE -continue follow up on his CKD with nephrology -he will follow up with his PCP for his general health issues FU 9 mon with me, sooner if needed INTERVAL HISTORY -we increased allopurinol to 750 mg daily after JOSY. Tolerating this dose without issues except for a flare of gout 06/2023. He was seen in [facility] for gout flare. Given steroid injection and discharged on prednisone taper (starting dose 60 mg daily). No other gout flares -he is taking allopurinol and colchicine consistently -no ETOH use -during this time of the year and spring (change in seasons), he will have daily arthralgias of his knees and feet that typically lasts for a month or two. He is also experiencing discomfort in his right shoulder with use of joint. -prescribed gabapentin and Tramadol by PCP -no other complaints or new issues Review of Systems CONSTITUTION: Negative for: Fever and Recent weight change HEENT: Negative for: Nosebleeds, Mouth sores, Trouble swallowing and Dry mouth RESPIRATORY: Positive for: Cough, Pain with breathing and Coughing up blood Nega (more content not included)... Normal [facility] 01-04-2024 [facility]NA[facility] Telephone (Multispan) -- NICK WRAY ([id number]) 1990 M Date Time Provider Department 01/04/24 DELMY BOYLE During your visit today, we recorded the following information about you: Camilla Holt BREE 01/04/2024 1:23 PM Signed Nick Wray (Munoz: [id number]) PA Rx #: [id number] Need Help? Call us at Outcome Denied today by [place] [employer] 2017 Coverage is provided when the member has met the step therapy requirement for this medication. Step therapy is a type of prior authorization (approval by your plan) that requires that you try one or more preferred drugs before you are approved for the drug requested. The requested medication requires the member to have a history of at least 30 days of therapy with generic Lidocaine patch. The [facility] Policy for Medical Necessity as posted on the [facility] website and [facility] Preferred Drug List criteria were reviewed and per [place] Administrative Code Rule 5160-1-01 (C) and (B), a medically necessary service must include: generally accepted standards of medical practice, be clinically appropriate in administration, treatment and outcome and be the lowest cost alternative to effectively treat the condition. Please contact your provider to assist you with other treatment options that might be covered under your benefit package, or other services that might be available through the community. Drug ZTlido 1.8% patches [facility] cloud logo Form [place] Medicaid [facility] [employer] Electronic PA Form (2016 NCPDP) Original Claim Info 75 Camilla HoltBREE 01/04/2024 1:23 PM Signed FYI- Insurance wants him to try generic Lidocaine patches for 30 days first. Please see below outcome. Delmy Boyle MD 01/06/2024 8:36 AM Signed ok to dispense generic The following approved medication requests have been transmitted electronically. Requested Prescriptions Signed Prescriptions Disp Refills lidocaine (LIDODERM) 5 % 30 Patch 0 Sig: Apply 1 Patch as directed every 24 hours. Authorizing Provider: DELMY OBYLE MD Manzon, Judith D, MD 01/06/2024 8:36 AM Signed Addended by: DELMY BOYLE on: 01/06/2024 08:36 AM Modules accepted: Orders Allergies As of Date: 01/04/2024 (Not on File) Date Reviewed: 01/04/2024 Reviewed by: Caren Vogt LPN - Fully Assessed Order(s):lidocaine (LIDODERM) 5 %Apply 1 Patch as directed every 24 hours.Disp: 30 PatchRfl: 0 Prescriptions as of 01/06/2024 - lidocaine (LIDODERM) 5 % Apply 1 Patch as directed every 24 hours. - allopurinol (ZYLOPRIM) 100 mg tablet Take two 300 mg tabs (600 mg) + one and a half 100 mg tabs (150 mg) =750 mg daily - allopurinol (ZYLOPRIM) 300 mg tablet Take two 300 mg tabs (600 mg) + one and a half 100 mg tabs (150 mg) =750 mg daily - colchicine 0.6 mg tablet TAKE 1 TABLET BY MOUTH EVERY OTHER DAY - amLODIPine (NORVASC) 5 mg tablet Take 1 tablet by mouth twice daily. Problem List As Of Date 01/04/2024 Noted Resolved Rheumatoid arthritis flare (HCC) [M06.9] 04/25/2017 05/10/2017 Nicotine use disorder, F17.2 [F17.200] 04/26/2017 Gout [M10.9] 04/26/2017 Chronic pain [G89.29] 04/26/2017 Rheumatoid arthritis of multiple sites with neg*05/10/2017 Idiopathic chronic gout of multiple sites with *01/18/2018 Prescriptions ordered this encounter Disp Refills Start End LIDOCAINE 5 % TOPICAL PATCH 30 P* 0 01/06/2024 Cmt: OK to dispense generic Route: TRANSDERM. Sig: Apply 1 Patch as directed every 24 hours. Medications Discontinued During This Encounter Prescriptions - lidocaine (ZTLIDO) 1.8 % patch (Discontinued) Apply 1 Patch to affected area once daily. Remove patch after 12 hours. Encounter Status:Closed by CAMILLA HOLT on 01/04/24 Normal [facility] No Panel Informationon 01-03 Radiology Study observation (narrative) [facility] XR FOOT 3V AP/LAT/OBL BILon 01-04-2024 XR FOOT 3V AP/LAT/OBL RAMIRO * * *Final Report* * * DATE OF EXAM: Jan 04 2024 9:48AM VHX 5555 - XR FOOT 3V AP/LAT/OBL RAMIRO / PROCEDURE REASON: multiple diagnoses * * * * Physician Interpretation * * * * EXAMINATION / TECHNIQUE: XR FOOT 3V AP/LAT/OBL RAMIRO PATIENT/TECHNOLOGIST PROVIDED HISTORY: Assessment of gout progresssion in joints, patient states pain equal in bilateral knees and feet CLINICAL INFORMATION ( PROVIDED BY ORDERING CLINICIAN) : Chronic tophaceous gout Encounter for long-term (current) use of medications COMPARISON: Radiographs 05/04/2017 RESULT: Left foot: Complete loss of the first MTP joint space with prominent bony erosions involving the distal first metatarsal with smaller erosions at the base of the hallux proximal phalanx. There has been resultant shortening of the hallux proximal phalanx since 05/04/2017 with hallux valgus. No other erosions. Moderate osteoarthritis of the third toe PIP joint. No acute fracture or dislocation. Mild pes planus. Right foot: Mild first MTP and talonavicular osteoarthritis. The joint spaces are otherwise grossly maintained. No bony erosions. No acute fracture or dislocation. Mild pes planus. 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 Toolroom Machinist: PSCB Transcribe Date/Time: Jan 04 2024 10:13A Dictated by : UMA ROGERS MD This examination was interpreted and the report reviewed and electronically signed by: CHELSEA REEVES MD on Jan 04 2024 3:12PM EST [id number] [facility] XR Foot - bilateral AP and L ateral and obliqueon 01-04-2024 * * *Final Report* * * DATE OF EXAM: Jan 04 2024 9:48AM VHX 5555 - XR FOOT 3V AP/LAT/OBL RAMIRO / PROCEDURE REASON: multiple diagnoses * * * * Physician Interpretation * * * * EXAMINATION / TECHNIQUE: XR FOOT 3V AP/LAT/OBL RAMIRO PATIENT/TECHNOLOGIST PROVIDED HISTORY: Assessment of gout progresssion in joints, patient states pain equal in bilateral knees and feet CLINICAL INFORMATION ( PROVIDED BY ORDERING CLINICIAN) : Chronic tophaceous gout Encounter for long-term (current) use of medications COMPARISON: Radiographs 05/04/2017 RESULT: Left foot: Complete loss of the first MTP joint space with prominent bony erosions involving the distal first metatarsal with smaller erosions at the base of the hallux proximal phalanx. There has been resultant shortening of the hallux proximal phalanx since 05/04/2017 with hallux valgus. No other erosions. Moderate osteoarthritis of the third toe PIP joint. No acute fracture or dislocation. Mild pes planus. Right foot: Mild first MTP and talonavicular osteoarthritis. The joint spaces are otherwise grossly maintained. No bony erosions. No acute fracture or dislocation. Mild pes planus. [facility] Provider, [facility] - 01/04/2024 * * *Final Report* * * DATE OF EXAM: Jan 04 2024 9:48AM VHX 5555 - XR FOOT 3V AP/LAT/OBL RAMIRO / PROCEDURE REASON: multiple diagnoses * * * * Physician Interpretation * * * * EXAMINATION / TECHNIQUE: XR FOOT 3V AP/LAT/OBL RAMIRO PATIENT/TECHNOLOGIST PROVIDED HISTORY: Assessment of gout progresssion in joints, patient states pain equal in bilateral knees and feet CLINICAL INFORMATION ( PROVIDED BY ORDERING CLINICIAN) : Chronic tophaceous gout Encounter for long-term (current) use of medications COMPARISON: Radiographs 05/04/2017 RESULT: Left foot: Complete loss of the first MTP joint space with prominent bony erosions involving the distal first metatarsal with smaller erosions at the base of the hallux proximal phalanx. There has been resultant shortening of the hallux proximal phalanx since 05/04/2017 with hallux valgus. No other erosions. Moderate osteoarthritis of the third toe PIP joint. No acute fracture or dislocation. Mild pes planus. Right foot: Mild first MTP and talonavicular osteoarthritis. The joint spaces are otherwise grossly maintained. No bony erosions. No acute fracture or dislocation. Mild pes planus. 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 Toolroom Machinist: PSCB Transcribe Date/Time: Jan 04 2024 10:13A Dictated by : UMA ROGERS MD This examination was interpreted and the report reviewed and electronically signed by: CHELSEA REEVES MD on Jan 04 2024 3:12PM [facility] XR KNEE 4V AP/PA/LAT/MERCH B [facility] 01-04-2024 XR KNEE 4V AP/PA/LAT/MERCH RAMIRO * * *Final Report* * * DATE OF EXAM: Jan 04 2024 9:48AM VHX 5618 - XR KNEE 4V AP/PA/LAT/MERCH RAMIRO / PROCEDURE REASON: multiple diagnoses * * * * Physician Interpretation * * * * EXAMINATION / TECHNIQUE: XR KNEE 4V AP/PA/LAT/MERCH RAMIRO PATIENT/TECHNOLOGIST PROVIDED HISTORY: Assessment of gout progresssion in joints, patient states pain equal in bilateral knees and feet CLINICAL INFORMATION ( PROVIDED BY ORDERING CLINICIAN) : 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 No erosions are identified. Fragmented enthesophytes at the right tibial tuberosity. The joint spaces are relatively maintained with small osteophytes at the right knee medial compartment. No acute fracture or dislocation. Overall, findings are similar when compared to 05/04/2017. 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 Mild right knee osteoarthritis. 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 Mild right knee osteoarthritis. Toolroom Machinist: PSCJayashree Transcribe Date/Time: Jan 04 2024 12:48P Dictated by : CHELSEA REEVES MD This examination was interpreted and the report reviewed and electronically signed by: CHELSEA REEVES MD on Jan 04 2024 1:21PM EST [facility] * * *Final Report* * * DATE OF EXAM: Jan 04 2024 9:48AM VHX 5618 - XR KNEE 4V AP/PA/LAT/MERCH RAMIRO / PROCEDURE REASON: multiple diagnoses * * * * Physician Interpretation * * * * EXAMINATION / TECHNIQUE: XR KNEE 4V AP/PA/LAT/MERCH RAMIRO PATIENT/TECHNOLOGIST PROVIDED HISTORY: Assessment of gout progresssion in joints, patient states pain equal in bilateral knees and feet CLINICAL INFORMATION ( PROVIDED BY ORDERING CLINICIAN) : 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 No erosions are identified. Fragmented enthesophytes at the right tibial tuberosity. The joint spaces are relatively maintained with small osteophytes at the right knee medial compartment. No acute fracture or dislocation. Overall, findings are similar when compared to 05/04/2017. 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 No erosions are identified. Fragmented enthesophytes at the right tibial tuberosity. The joint spaces are relatively maintained with small osteophytes at the right knee medial compartment. No acute fracture or dislocation. Overall, findings are similar when compared to 05/04/2017. 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 Mild right knee osteoarthritis. Toolroom Machinist: ADELA Transcribe Date/Time: Jan 04 2024 12:48P Dictated by : CHELSEA REEVES MD This examination was interpreted and the report reviewed and electronically signed by: CHELSEA REEVES MD on Jan 04 2024 1:21PM EST [facility] XR Knee - bilateral 4 ViewsO rdered By: [facility] Provider on 01-04-2024 [facility] ALT SerPl-cCncon 12-30-2023 ALT [Catalytic activity/Vol] 20 U/L Normal 10-54 [facility] Comment on above: Order Comment: Speci men Type: BLOOD SPECIMEN Ordering Facility: [facility] Address: [address] [place] [address] Performed By: #### C RET1 #### [facility] CLIA [id number] [address] [place] [address] AST SerPl-cCncon 12-30-2023 AST [Catalytic activity/Vol] 18 U/L Normal 14-40 [facility] Comment on above: Order Comment: Speci men Type: BLOOD SPECIMEN Ordering Facility: [facility] Address: [address] [place] [address] Performed By: #### C RET1 #### [facility] CLIA [id number] [address] [place] [address] 92917 Albumin SerPl-mCncon 024 Albumin [Mass/Vol] 4.1 g/dL Normal 3.9-4.9 [facility] Comment on above: Order Comment: Speci men Type: BLOOD SPECIMEN Ordering Facility: [facility] Address: [address] [place] [address] Performed By: #### C RET1 #### [facility] CLIA [id number] [address] [place] [address] 01998 CBC W Auto Differential pane l (Bld)on 12-30-2023 Basophils (Bld) [#/Vol] 0.03 10*3/uL Normal <0.11 [facility] Comment on above: Order Comment: Speci men Type: BLOOD SPECIMEN Ordering Facility: [facility] Address: [address] [place] [address] Performed By: #### 5 7021-8 #### [facility] CLIA [id number] [address] [place] [address]1960 Basophils/100 WBC (Bld) 0.6 % Normal [facility] Comment on above: Order Comment: Speci men Type: BLOOD SPECIMEN Ordering Facility: [facility] Address: [address] [place] [address] Performed By: #### 5 7021-8 #### [facility] CLIA [id number] [address] [place] [address] 81377 Differential cell count method Nom (Bld) Auto Normal [facility] Comment on above: Order Comment: Speci men Type: BLOOD SPECIMEN Ordering Facility: [facility] Address: [address] [place] [address] Performed By: #### 5 7021-8 #### [facility] CLIA [id number] [address] [place] [address] 69248 Eosinophils (Bld) [#/Vol] 0.06 10*3/uL Normal <0.46 [facility] Comment on above: Order Comment: Speci men Type: BLOOD SPECIMEN Ordering Facility: [facility] Address: [address] [place] [address] Performed By: #### 5 7021-8 #### [facility] CLIA [id number] [address] [place] [address] 37555 Eosinophils/100 WBC (Bld) 1.3 % Normal [facility] Comment on above: Order Comment: Speci men Type: BLOOD SPECIMEN Ordering Facility: [facility] Address: [address] [place] [address] Performed By: #### 5 7021-8 #### [facility] CLIA [id number] [address] [place] [address] 53166 Erythrocyte distribution width (RBC) [Ratio] 13.2 % Normal 11.5-15.0 [facility] Comment on above: Order Comment: Speci men Type: BLOOD SPECIMEN Ordering Facility: [facility] Address: [address] [place] [address] Performed By: #### 5 7021-8 #### [facility] CLIA [id number] [address] [place] [address] 57088 Hematocrit (Bld) [Volume fraction] 40.9 % Normal 39.0-51.0 [facility] Comment on above: Order Comment: Speci men Type: BLOOD SPECIMEN Ordering Facility: [facility] Address: [address] [place] [address] Performed By: #### 5 7021-8 #### [facility] CLIA [id number] [address] [place] [address] 52771 Hemoglobin (Bld) [Mass/Vol] 14.3 g/dL Normal 13.0-17.0 [facility] Comment on above: Order Comment: Speci men Type: BLOOD SPECIMEN Ordering Facility: [facility] Address: [address] [place] [address] Performed By: #### 5 7021-8 #### [facility] CLIA [id number] [address] [place] [address] 82066 Immature granulocytes (Bld) [#/Vol] 10*3/uL Normal <0.10 [facility] Comment on above: Order Comment: Speci men Type: BLOOD SPECIMEN Ordering Facility: [facility] Address: [address] [place] [address] Performed By: #### 5 7021-8 #### [facility] CLIA [id number] [address] [place] [address] 24658 Immature granulocytes/100 WBC (Bld) 0.2 % Normal [facility] Comment on above: Order Comment: Speci men Type: BLOOD SPECIMEN Ordering Facility: [facility] Address: [address] [place] [address] Performed By: #### 5 7021-8 #### [facility] CLIA [id number] [address] [place] [address] 87893 Lymphocytes (Bld) [#/Vol] 1.71 10*3/uL Normal 1.00-4.00 [facility] Comment on above: Order Comment: Speci men Type: BLOOD SPECIMEN Ordering Facility: [facility] Address: [address] [place] [address] Performed By: #### 5 7021-8 #### [facility] CLIA [id number] [address] [place] [address] 55924 Lymphocytes/100 WBC (Bld) 36.6 % Normal [facility] Comment on above: Order Comment: Speci men Type: BLOOD SPECIMEN Ordering Facility: [facility] Address: [address] [place] [address] Performed By: #### 5 7021-8 #### [facility] CLIA [id number] [address] [place] [address] 27131 MCH (RBC) [Entitic mass] 29.9 pg Normal 26.0-34.0 [facility] Comment on above: Order Comment: Speci men Type: BLOOD SPECIMEN Ordering Facility: [facility] Address: [address] [place] [address] Performed By: #### 5 7021-8 #### [facility] CLIA [id number] [address] [place] [address] 42039 MCHC (RBC) [Mass/Vol] 35.0 g/dL Normal 30.5-36.0 [facility] Comment on above: Order Comment: Speci men Type: BLOOD SPECIMEN Ordering Facility: [facility] Address: [address] [place] [address] Performed By: #### 5 7021-8 #### [facility] CLIA [id number] [address] [place] [address] 40162 MCV (RBC) [Entitic vol] 85.4 fL Normal 80.0-100.0 [facility] Comment on above: Order Comment: Speci men Type: BLOOD SPECIMEN Ordering Facility: [facility] Address: [address] [place] [address] Performed By: #### 5 7021-8 #### [facility] CLIA [id number] [address] [place] [address] 78975 Monocytes (Bld) [#/Vol] 0.28 10*3/uL Normal <0.87 [facility] Comment on above: Order Comment: Speci men Type: BLOOD SPECIMEN Ordering Facility: [facility] Address: [address] [place] [address] Performed By: #### 5 7021-8 #### [facility] CLIA [id number] [address] [place] [address] 32608 Monocytes/100 WBC (Bld) 6.0 % Normal [facility] Comment on above: Order Comment: Speci men Type: BLOOD SPECIMEN Ordering Facility: [facility] Address: [address] [place] [address] Performed By: #### 5 7021-8 #### [facility] CLIA [id number] [address] [place] [address] 15686 Neutrophils (Bld) [#/Vol] 2.58 10*3/uL Normal 1.45-7.50 [facility] Comment on above: Order Comment: Speci men Type: BLOOD SPECIMEN Ordering Facility: [facility] Address: [address] [place] [address] Performed By: #### 5 7021-8 #### [facility] CLIA [id number] [address] [place] [address] 43019 Neutrophils/100 WBC (Bld) 55.3 % Normal [facility] Comment on above: Order Comment: Speci men Type: BLOOD SPECIMEN Ordering Facility: [facility] Address: [address] [place] [address] Performed By: #### 5 7021-8 #### [facility] CLIA [id number] [address] [place] [address] 03221 Nucleated RBC (Bld) [#/Vol] 10*3/uL Normal <0.01 [facility] Comment on above: Order Comment: Speci men Type: BLOOD SPECIMEN Ordering Facility: [facility] Address: [address] [place] [address], [place] [address] Performed By: #### 5 7021-8 #### [facility] CLIA [id number] [address] [place] [address] Nucleated RBC/100 WBC (Bld) [Ratio] 0.0 /100 WBC Normal [facility] Comment on above: Order Comment: Speci men Type: BLOOD SPECIMEN Ordering Facility: [facility] Address: [address] [place] [address] Performed By: #### 5 7021-8 #### [facility] CLIA [id number] [address] [place] [address] Platelet mean volume (Bld) [Entitic vol] 10.4 fL Normal 9.0-12.7 [facility] Comment on above: Order Comment: Speci men Type: BLOOD SPECIMEN Ordering Facility: [facility] Address: [address] [place] [address] Performed By: #### 5 7021-8 #### [facility] CLIA [id number] [address] [place] [address] 46881 Platelets (Bld) [#/Vol] 277 10*3/uL Normal 150-400 [facility] Comment on above: Order Comment: Speci men Type: BLOOD SPECIMEN Ordering Facility: [facility] Address: [address] [place] [address] Performed By: #### 5 7021-8 #### [facility] CLIA [id number] [address] [place] [address] 66207 RBC (Bld) [#/Vol] 4.79 10*6/uL Normal 4.20-6.00 [facility] Comment on above: Order Comment: Speci men Type: BLOOD SPECIMEN Ordering Facility: [facility] Address: [address] [place] [address] Performed By: #### 5 7021-8 #### [facility] CLIA [id number] [address] [place] [address] 96072 WBC (Bld) [#/Vol] 4.67 10*3/uL Normal 3.70-11.00 [facility] Comment on above: Order Comment: Speci men Type: BLOOD SPECIMEN Ordering Facility: [facility] Address: [address] [address] Performed By: #### 5 7021-8 #### [facility] CLIA [id number] [address] [place] [address]3369 [facility] CBC W AUTO DIFF BLDon Basophils/100 WBC (Bld) 0.6 % [facility] BASOPHILS # BLD AUTO 0.03 [facility] DIFFERENTIAL METHOD BLD Auto [facility] EOSINOPHIL # BLD AUTO 0.06 [facility] LYMPHOCYTES # BLD AUTO 1.71 [facility] MONOCYTES # BLD AUTO 0.28 [facility] NEUTROPHILS # BLD AUTO 2.58 [facility] NRBC # BLD AUTO <0.01 [facility] NRBC/100 WBC BLD-RTO 0 /100 WBC [facility] PLATELET # BLD AUTO 277 [facility] PMV BLD AUTO 10.4 fL 9.0 - 12.7 fL [facility] WBC # BLD AUTO 4.67 [facility] Eosinophils/100 WBC (Bld) 1.3 % [facility] Erythrocyte distribution width (RBC) [Ratio] 13.2 % 11.5 - 15.0 % [facility] Hematocrit (Bld) [Volume fraction] 40.9 % 39.0 - 51.0 % [facility] Hemoglobin (Bld) [Mass/Vol] 14.3 g/dL 13.0 - 17.0 g/dL [facility] IMM GRANULOCYTES # BLD AUTO <0.03 [facility] IMM GRANULOCYTES/LEUK NFR BLD AUTO 0.2 % [facility] Lymphocytes/100 WBC (Bld) 36.6 % [facility] MCH (RBC) [Entitic mass] 29.9 pg 26.0 - 34.0 pg [facility] MCHC (RBC) [Mass/Vol] 35 g/dL 30.5 - 36.0 g/dL [facility] MCV (RBC) [Entitic vol] 85.4 fL 80.0 - 100.0 fL [facility] Monocytes/100 WBC (Bld) 6 % [facility] Neutrophils/100 WBC (Bld) 55.3 % [facility] RBC (Bld) [#/Vol] 4.79 10*6/uL 4.20 - 6.0 0 m/uL [facility] Specimen Type: BLOOD SPECIMEN Ordering Facility: [facility] Address: [address] [place] [address] Original Ordering Provider: DELMY HDEZ [facility] CREATININE BLDon 12-30-2023 Creatinine [Mass/Vol] 1.32 mg/dL High 0.73-1.22 [facility] Comment on above: Order Comment: Speci men Type: BLOOD SPECIMEN Ordering Facility: [facility] Address: [facility] [place] [address] Performed By: #### C RET1 #### [facility] CLIA [id number] [address] [place] [address]5829 Creatinine and Glomerular filtration rate.predicted panel (S/P/Bld) 73 mL/min/1.73m??? Normal >=60 [facility] Comment on above: Order Comment: Speci men Type: BLOOD SPECIMEN Ordering Facility: [facility] Address: [address] [place] [address] Result Comment: Jyoti mated Glomerular Filtration Rate [...] GFR. Performed By: #### C RET1 #### [facility] CLIA [id number] [address] [place] [address] 13278 CRP SerPl-mCncon 12-30-2023 CRP [Mass/Vol] mg/L Normal <0.9 [facility] Comment on above: Order Comment: Speci men Type: BLOOD SPECIMEN Ordering Facility: [facility] Address: [address] [place] [address] Performed By: #### C RET1, 1742-6, 8, 1750-08 #### [facility] CLIA [id number] [address] [place] [address] 39425 ESR Westergren method (Bld) [Velocity]on 12-30-2023 ESR (Bld) [Velocity] 15 mm/h Normal 0-15 [facility] Comment on above: Order Comment: Speci men Type: BLOOD SPECIMEN Ordering Facility: [facility] Address: [address] [place] [address] Performed By: #### 4 537-7 #### [facility] CLIA [id number] [address] [place] [address] [place] Urate SerPl-mCncon Urate [Mass/Vol] 4.7 mg/dL Normal 4.0-8.1 [facility] Comment on above: Order Comment: Speci men Type: BLOOD SPECIMEN Ordering Facility: [facility] Address: [address] [place] [address] Performed By: #### C RET1, 1742-6, 1919-09, 1750-08 #### [facility] CLIA [id number] [address] [place] [address] 46127 CNOVon 06-24-2023 CNOV Office Visit (DANETTEUADale ) -- NICK WRAY ([id number]) 1990 M Date Time Provider Department 06/24/23 [...] arthritic flares once every 4 months. [address] gal[address] assembler [address] Jaime in [place] who did diagnostic knee aspiration which according to patient was positive for uric acid crystals. Treated with steroids and continued allopurinol. He has not seen Dr. Jaime since 2014. In 2014, he was hospitalized in [place] for acute polyarthritis. Saw galvanometer assembler while in hospital who told him that he possibly had RA. Discharged on steroids. His PCP switched him from allopurinol to Uloric Jan 2017. He also takes colchicine prn. No reduction in frequency or severity of his joint flares with Uloric. In 2016, he has been hospitalized 7-8 times for acute joint flares. Each time he is treated with steroids. Hospitalized at [facility] Apr 2017 for acute flare of [...] shoulder surgery by Dr. Tc Coffey at [facility]. No post op complications. Was in PT [...] joints. Maribel (more content not included)... Normal [facility] CRP SerPl-mCncon 06-21-2023 CRP [Mass/Vol] mg/L Normal <0.9 [facility] Comment on above: Order Comment: Speci men Type: BLOOD SPECIMEN Ordering Facility: [facility] Address: [address] [place], [place] [id number] Performed By: #### C NEEMA1, 1741-07, 1919-09, 1750-08 #### [facility] CLIA [id number] [address] [place] [address] 61743 ESR Westergren method (Bld) [Velocity]on 06-21-2023 ESR (Bld) [Velocity] 2 mm/h Normal 0-15 [facility] Comment on above: Order Comment: Speci men Type: BLOOD SPECIMEN Ordering Facility: [facility] Address: [address] [place] [address] Performed By: #### C NEEMA1, 1741-07, 1919-09, 1750-08 #### [facility] CLIA [id number] [address] [place] [address] 18080 Urate SerPl-mCncon Urate [Mass/Vol] 5.1 mg/dL Normal 4.0-8.1 [facility] Comment on above: Order Comment: Speci men Type: BLOOD SPECIMEN Ordering Facility: [facility] Address: [address] [place] [address] Performed By: #### C NEEMA1, 1741-07, 1919-09, 1750-08 #### [facility] CLIA [id number] [address] [place] [address] 58590 Lipid Panelon 05-09-2023 Cholesterol [Mass/Vol] 155 mg/dL Normal 140-200 [facility] Comment on above: Result Comment: Chol less than 200 mg/dl low risk Chol 201-239 mg/dl borderline risk Chol 240 mg/dl and greater high risk Performed By: #### L IPID, [id number], TSH3 wRFLX #### [facility] [address] [place] [address] Cholesterol in HDL [Mass/Vol] 46 mg/dL Normal 23-92 [facility] Comment on above: Result Comment: HDL CHOL ATP-III CLASSIFICATION Cardiovascular Risk HDL > or equal to 60 mg/dL LOW HDL < 40 mg/dL HIGH Performed By: #### L IPID, [id number], TSH3 wRFLX #### [address] Cholesterol.total/Ch olesterol in HDL [Mass ratio] 3.4 {ratio} Normal <5.0 [facility] Comment on above: Performed By: #### L IPID, [id number], TSH3 wRFLX #### [address] LDL Cholesterol,Calculat ed 90 mg/dL Normal 0-100 [facility] Comment on above: Result Comment: LDL ATP III CLASSIFICATION LDL less than 100 mg/dL Optimal LDL 100-129 mg/dL Near or above optimal LDL 130-159 mg/dL Borderline high LDL 160-189 mg/dL High LDL greater than 189 mg/dL Very high Performed By: #### L IPID, [id number], TSH3 wRFLX #### [place] [address] [place] Triglyceride w/Reflex 94 mg/dL Normal 0-149 [facility] Comment on above: Result Comment: TRIG ATP III CLASSIFICATION TRIG less than 150 mg/dL Normal TRIG 150-199 mg/dL Borderline high TRIG 200-500 mg/dL High TRIG greater than 500 mg/dL Very high Standard traceable to the Center for Disease Conrtrol and Prevention (CDC) test method. Performed By: #### L IPID, [id number], TSH3 wRFLX #### [address] VLDL CHOLESTEROL 18 mg/dL Normal [facility] Comment on above: Performed By: #### L IPID, [id number], TSH3 wRFLX #### [place] [id number] [facility] Thyroid Stim Hormone w/Rflxo n 03-10-2024 Thyroid Stim Hormone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 [facility] Comment on above: Performed By: #### C BC #### [facility] [address] [place] [address] Dr. Nilay Gibbs PLT 356 103/ul Normal 150-450 [facility] Comment on above: Performed By: #### C BC #### [facility] [address] [place] [address] Dr. Nilay Gibbs RBC 4.50 106/ul Critically low 4.70-6.10 [facility] Comment on above: Performed By: #### C BC #### [facility] [address] [place] [address] Dr. Nilay Gibbs WBC 10.0 103/ul Normal 4.0-11.0 [facility] Comment on above: Performed By: #### C BC #### [facility] [address] [place] [address] Dr. Nilay Gibbs PROF CHEM 8 (BAS METB)on Anion gap [Moles/Vol] 12.4 mmol/L Normal [facility] Comment on above: Performed By: #### A MM #### [facility] [address] [place] [address] Dr. Nilay Gibbs Calcium [Mass/Vol] 9.4 mg/dL Normal 8.5-10.1 [facility] Comment on above: Performed By: #### A MM #### [facility] [address] [place] [address] Dr. Nilay Gibbs Chloride [Moles/Vol] 105 mmol/L Normal 98-107 [facility] Comment on above: Performed By: #### A MM #### [facility] [address] [address] [address] Nilay Gibbs CO2 [Moles/Vol] 25.6 mmol/L Normal 21.0-32.0 [facility] Comment on above: Performed By: #### A MM #### [facility] [address] [place] [address] Dr. Nilay Gibbs Creatinine [Mass/Vol] 1.18 mg/dL Normal 0.70-1.30 [facility] Comment on above: Performed By: #### A MM #### [facility] [address] [place] [address] Dr. Nilay Gibbs EGFR-AF SWAZI >60 Normal >=60 [facility] Comment on above: Performed By: #### A MM #### [facility] [address] [place] [address] Dr. Nilay Gibbs EGFR-NON AF SWAZI >60 Normal >=60 [facility] Comment on above: Performed By: #### A MM #### [facility] [address] [place] [address] Dr. Nilay Gibbs Glucose [Mass/Vol] 125 mg/dL Critically high 74-106 [facility] Comment on above: Performed By: #### A MM #### [facility] [address] [place] [address] Dr. Nilay Gibbs Potassium [Moles/Vol] 4.3 mmol/L Normal 3.5-5.1 [facility] Comment on above: Performed By: #### A MM #### [facility] [address] [place] [address] Dr. Nilay Gibbs Sodium [Moles/Vol] 139 mmol/L Normal 136-145 [facility] Comment on above: Performed By: #### A MM #### [facility] [address] [place] [address] Dr. Nilay Gibbs Urea nitrogen [Mass/Vol] 15.0 mg/dL Normal 7.0-18.0 [facility] Comment on above: Performed By: #### A MM #### [facility] [address] [place] [address] Dr. Nilay Gibbs Urea nitrogen/Creatinine [Mass ratio] 12.7 mg/mg Normal [facility] Comment on above: Performed By: #### A MM #### [facility] [address] [place] [address] Dr. Nilay Gibbs CBC AUTO DIFFon 06-20-2022 BASO # 0.0 103/ul Normal 0.0-0.1 [facility] Comment on above: Performed By: #### A MM #### [facility] [address] [place] [address] Dr. Nilay Gibbs Basophils/100 WBC (Bld) 0.2 % Normal 0.2-2.0 [facility] Comment on above: Performed By: #### A MM #### [facility] [address] [place] [address] Dr. Nilay Gibbs EO # 0.0 103/ul Normal 0.0-0.7 [facility] Comment on above: Performed By: #### A MM #### [facility] [address] [place] [address] Dr. Nilay Gibbs Eosinophils/100 WBC (Bld) 0.3 % Critically low 0.9-7.0 [facility] Comment on above: Performed By: #### A MM #### [facility] [address] [place] [address] Dr. Nilay Gibbs Erythrocyte distribution width (RBC) [Ratio] 14.3 % Normal 11.0-15.0 [facility] Comment on above: Performed By: #### A MM #### [facility] [address] [place] [address] Dr. Nilay Gibbs Hematocrit (Bld) [Volume fraction] 39.3 % Critically low 42.0-54.0 [facility] Comment on above: Performed By: #### A MM #### [facility] [address] [place] [address] Dr. Nilay Gibbs Hemoglobin (Bld) [Mass/Vol] 13.1 g/dL Critically low 14.0-18.0 [facility] Comment on above: Performed By: #### A MM #### [facility] [address] [place] [address] Dr. Nilay Gibbs IG # 0.03 10e3/ul Normal 0.00-0.03 [facility] Comment on above: Performed By: #### A MM #### [facility] [address] [place] [address] Dr. Nilay Gibbs IG % 0.3 % Normal 0.0-0.5 [facility] Comment on above: Performed By: #### A MM #### [facility] [address] [place] [address] Dr. Nilay Gibbs LYMPH # 1.7 103/ul Normal 1.2-3.8 [facility] Comment on above: Performed By: #### A MM #### [facility] [address] [place] [address] Dr. Nilay Gibbs Lymphocytes/100 WBC (Bld) 14.5 % Critically low 20.5-60.0 [facility] Comment on above: Performed By: #### A MM #### [facility] [address] [place] [address] Dr. Nilay Gibbs MANUAL DIFF REQ NO Normal [facility] Comment on above: Performed By: #### A MM #### [facility] [address] [place] [address] Dr. Nilay Gibbs MCH (RBC) [Entitic mass] 29.2 pg Normal 25.9-34.0 [facility] Comment on above: Performed By: #### A MM #### [facility] [address] [place] [address] Dr. Nilay Gibbs MCHC (RBC) [Mass/Vol] 33.3 g/dL Normal 29.9-35.2 [facility] Comment on above: Performed By: #### A MM #### [facility] [address] [place] [address] Dr. Nilay Gibbs MCV (RBC) [Entitic vol] 87.5 fL Normal 80.0-94.0 [facility] Comment on above: Performed By: #### A MM #### [facility] [address] [address] [address] Nilay Gibbs MONO # 1.3 103/ul Critically high 0.3-0.8 [facility] Comment on above: Performed By: #### A MM #### [facility] [address] [address] [address] Nliay Gibbs Monocytes/100 WBC (Bld) 10.9 % Normal 1.7-12.0 [facility] Comment on above: Performed By: #### A MM #### [facility] [address] [address] [address] Nilay Gibbs NEUT # 8.7 103/ul Critically high 1.4-6.5 [facility] Comment on above: Performed By: #### A MM #### [facility] [address] [place] [address] Dr. Nilay Gibbs Neutrophils/100 WBC (Bld) 73.8 % Normal 43.0-75.0 [facility] Comment on above: Performed By: #### A MM #### [facility] [address] [place] [address] Dr. Nilay Gibbs Platelet mean volume (Bld) [Entitic vol] 10.9 fL Normal 9.5-13.5 [facility] Comment on above: Performed By: #### A MM #### [facility] [address] [address] [address] Nilay Gibbs PLT 171 103/ul Normal 150-450 [facility] Comment on above: Performed By: #### A MM #### [facility] [address] [address] [address] Nilay Gibbs RBC 4.49 106/ul Critically low 4.70-6.10 [facility] Comment on above: Performed By: #### A MM #### [facility] [address] [address] [address] Nilay Gibbs WBC 11.7 103/ul Critically high 4.0-11.0 [facility] Comment on above: Performed By: #### A MM #### [facility] [address] [place] [address] Dr. Nilay Gibbs CRPon 06-20-2022 CRP 25.4 mg/dL Critically high <=1.0 [facility] Comment on above: Performed By: #### C RP, CMP #### [facility] [address] [place] [address] Dr. Nilay Gibbs CULTURE BLOODon 06-20-2022 Microscopic examination of blood, culture Culture Observations: NO GROWTH AT 5 DAYS. Normal [facility] Comment on above: Performed By: #### C MP #### [facility] [address] [place] [address] Dr. Nilay Gibbs Microscopic examination of blood, culture Culture Observations: NO GROWTH AT 5 DAYS. Normal [facility] Comment on above: Performed By: #### C MP #### [facility] [address] [place] [address] Dr. Nilay Gibbs LACTATE/LACTIC ACIDon 2022 Lactate [Moles/Vol] 0.7 mmol/L Normal 0.4-2.0 [facility] Comment on above: Performed By: #### A MM #### [facility] [address] [place] [address] Dr. Nilay Gibbs PROF 14(COMP METB)on 023 Albumin [Mass/Vol] 3.8 g/dL Normal 3.4-5.0 [facility] Comment on above: Performed By: #### C RP, CMP #### [facility] [address] [place] [address] Dr. Nilay Gibbs Albumin/Globulin [Mass ratio] 1.1 {ratio} [facility] Comment on above: Performed By: #### C RP, CMP #### [facility] [address] [place] [address] Dr. Nilay Gibbs ALP [Catalytic activity/Vol] 85 U/L Normal 46-116 [facility] Comment on above: Performed By: #### C RP, CMP #### [facility] [address] [place] [address] Dr. Nilay Gibbs ALT [Catalytic activity/Vol] 29 U/L Normal 16-63 [facility] Comment on above: Performed By: #### C RP, CMP #### [facility] [address] [place] [address] Dr. Nilay Gibbs Anion gap [Moles/Vol] 15.2 mmol/L Normal [facility] Comment on above: Performed By: #### C RP, CMP #### [facility] [address] [place] [address] Dr. Nilay Gibbs AST [Catalytic activity/Vol] 20 U/L Normal 15-37 [facility] Comment on above: Performed By: #### C RP, CMP #### [facility] [address] [place] [address] Dr. Nilay Gibbs Bilirubin [Mass/Vol] 1.1 mg/dL Critically high 0.2-1.0 [facility] Comment on above: Performed By: #### C RP, CMP #### [facility] [address] [place] [address] Dr. Nilay Gibbs Calcium [Mass/Vol] 9.4 mg/dL Normal 8.5-10.1 [facility] Comment on above: Performed By: #### C RP, CMP #### [facility] [address] [place] [address] Dr. Nilay Gibbs Chloride [Moles/Vol] 99 mmol/L Normal 98-107 [facility] Comment on above: Performed By: #### C RP, CMP #### [facility] [address] [place] [address] Dr. Nilay Gibbs CO2 [Moles/Vol] 25.7 mmol/L Normal 21.0-32.0 [facility] Comment on above: Performed By: #### C RP, CMP #### [facility] [address] [place] [address] Dr. Nilay Gibbs Creatinine [Mass/Vol] 1.32 mg/dL Critically high 0.70-1.30 [facility] Comment on above: Performed By: #### C RP, CMP #### [facility] [address] [place] [address] Dr. Nilay Gibbs EGFR-AF SWAZI >60 Normal >=60 [facility] Comment on above: Performed By: #### C RP, CMP #### [facility] [address] [place] [address] Dr. Nilay Gibbs EGFR-NON AF SWAZI >60 Normal >=60 [facility] Comment on above: Performed By: #### C RP, CMP #### [facility] [address] [address] [address] Nilay Gibbs Globulin (S) [Mass/Vol] 3.6 g/dL Normal [facility] Comment on above: Performed By: #### C RP, CMP #### [facility] [address] [place] [address] Dr. Nilay Gibbs Glucose [Mass/Vol] 106 mg/dL Normal 74-106 [facility] Comment on above: Performed By: #### C RP, CMP #### [facility] [address] [place] [address] Dr. Nilay Gibbs Potassium [Moles/Vol] 3.9 mmol/L Normal 3.5-5.1 [facility] Comment on above: Performed By: #### C RP, CMP #### [facility] [address] [place] [address] Dr. Nilay Gibbs Protein [Mass/Vol] 7.4 g/dL Normal 6.4-8.2 [facility] Comment on above: Performed By: #### C RP, CMP #### [facility] [address] [place] [address] Dr. Nilay Gibbs Sodium [Moles/Vol] 136 mmol/L Normal 136-145 [facility] Comment on above: Performed By: #### C RP, CMP #### [facility] [address] [place] [address] Dr. Nilay Gibbs Urea nitrogen [Mass/Vol] 10.0 mg/dL Normal 7.0-18.0 [facility] Comment on above: Performed By: #### C RP, CMP #### [facility] [address] [place] [address] Dr. Nilay Gibbs Urea nitrogen/Creatinine [Mass ratio] 7.6 mg/mg Normal [facility] Comment on above: Performed By: #### C RP, CMP #### [facility] [address] [place] [address] Dr. Nilay Gibbs SED RATE WESTERGRENon 2022 SED RATE 46 mm/hr Critically high <=15 [facility] Comment on above: Performed By: #### S EDR #### [facility] [address] [address] [address] Nilay Gibbs Covid-19 PCR ([facility])on SARS-CoV-2 (COVID-19) RNA TALHA+probe Ql (Unsp spec) Not detected Normal NOT DETECTED [facility] Comment on above: Result Comment: When diagnostic [...] for this test is supported by the [place] [employer]'s declaration that [...] used). Performed By: #### A MM #### [facility] [address] [place] [address] Dr. Nilay Gibbs INFLUENZA A AND B AGon 01-31 INFLUANEGH SEE BELOW Normal [facility] Comment on above: Result Comment: Nega tive for Flu A protein angiten. Infection due to Flu A cannot be ruled out. Flu A angiten in the sample may be below the detection limit of the test. Performed By: #### A MM #### [facility] [address] [place] [address] Dr. Nilay Gibbs INFLUBNEGH SEE BELOW Normal [facility] Comment on above: Result Comment: Nega tive for Flu B protein antigen. Infection due to Flu B cannot be ruled out. Flu B antigen in the sample may be below the detection limit of the test. Performed By: #### A MM #### [facility] [address] [place], [place] [address] Dr. Nilay Gibbs INFLUENZA A AG Negative Normal NEGATIVE SEE COMMENT [facility] Comment on above: Performed By: #### A MM #### [facility] [address] [address] [address] Nilay Gibbs INFLUENZA B AG Negative Normal NEGATIVE SEE COMMENT [facility] Comment on above: Performed By: #### A MM #### [facility] [address] [address] [address] Nilay Gibbs INTERNAL CONTROLS Within Normal Limits Normal Wi thin Normal Limits [facility] Comment on above: Performed By: #### A MM #### [facility] [address] [address] [address] Nilay Gibbs Cholesterol [Mass/volume] in Serum or PlasmaOrdered By: Adam Young on 12-08-2021 Cholesterol [Mass/Vol] 205 mg/dL 140-200 [facility] Comment on above: Chol less than 200 m g/dl low riskChol 201-239 mg/dl borderline riskChol 240 mg/dl and greater high risk Cholesterol in LDL Calc [Mas s/Vol]Ordered By: Adam Young on 12-08-2021 Cholesterol in LDL [Mass/Vol] 120 mg/dL 0-100 [facility] Comment on above: LDL ATP III CLASSIFI CATIONLDL less than 100 mg/dL OptimalLDL 100-129 mg/dL Near or above optimalLDL 130-159 mg/dL Borderline highLDL 160-189 mg/dL HighLDL greater than 189 mg/dL Very high Cholesterol in VLDL Calc [Ma ss/Vol]Ordered By: Adam Young on 12-08-2021 Cholesterol in VLDL [Mass/Vol] 37 mg/dL [facility] No Panel InformationOrdered By: Adam Young on 12-08-2021 25-Hydroxy Vitamin D Total 50.6 ng/mL 30-100 [facility] Comment on above: VITAMIN D STATUS [...] in HDL [Mass/Vol] 47 mg/dL 29-71 [facility] Comment on above: HDL CHOL ATP-III CLA SSIFICATION Cardiovascular RiskHDL > or equal to 60 mg/dL LOWHDL < 40 mg/dL HIGH Serum or plasma total choles terol/high density lipoprotein (HDL) cholesterol mass ratOrdered By: Adam Young on 12-08-2021 Cholesterol.total/Ch olesterol in HDL [Mass ratio] 4.4 {ratio} <5.0 [facility] TSH DL <= 0.005 mIU/L QnOrde red By: Adam Young on 12-08-2021 TSH Qn 0.75 m[IU]/L 0.45-5.33 [facility] Triglyceride [Mass/volume] i n Serum or PlasmaOrdered By: Adam Young on 12-08-2021 Triglyceride [Mass/Vol] 188 mg/dL 35-149 [facility] Comment on above: TRIG ATP III CLASSIF ICATIONTRIG less than 150 mg/dL NormalTRIG 150-199 mg/dL Borderline highTRIG 200-500 mg/dL High TRIG greater than 500 mg/dL Very highStandard traceable to the Center for Disease Conrtrol and Prevention (CDC) test method. Covid-19 PCR ([facility])on SARS-CoV-2 (COVID-19) RNA TALHA+probe Ql (Unsp spec) Not detected Normal NOT DETECTED [facility] Comment on above: Result Comment: When diagnostic [...] for this test is supported by the [place] [employer]'s declaration that [...] used). Performed By: #### C MP #### [facility] [address] [place] [address] Dr. Nilay Gibbs ETHANOL (BLD ALC)on 12-08-19 22 Ethanol [Mass/Vol] 288 mg/dL Normal [facility] Comment on above: Performed By: #### C MP #### [facility] [address] [place] [address] Dr. Nilay Gibbs ALC NOTE NOTE: 80 mg/dl is th e legal limit for a blood alcohol level Normal [facility] Comment on above: Performed By: #### C MP #### [facility] [address] [place] [address] Dr. Nilay Gibbs Performed By: #### A MM #### [facility] [address] [place] [address] Dr. Nilay Gibbs Ethanol [Mass/Vol] 130 mg/dL Normal [facility] Comment on above: Performed By: #### A MM #### [facility] [address] [place] [address] Dr. Nilay Gibbs Ethanol [Mass/Vol] 196 mg/dL Normal [facility] Comment on above: Performed By: #### A MM #### [facility] [address] [place] [address] Dr. Nilay Gibbs ACETAMINOPHENon 12-06-2021 Acetaminophen [Mass/Vol] ug/mL Critically low 10.0-30.0 [facility] Comment on above: Performed By: #### A CET #### [facility] [address] [address] [address] Nilay Gibbs AMMONIAon 12-06-2021 Ammonia (P) [Moles/Vol] 22 umol/L Normal 11-32 [facility] Comment on above: Performed By: #### A MM #### [facility] [address] [place] [address] Dr. Nilay Gibbs CBC AUTO DIFFon 12-06-2021 BASO # 0.0 103/ul Normal 0.0-0.1 [facility] Comment on above: Performed By: #### A MM #### [facility] [address] [place] [address] Dr. Nilay Gibbs Basophils/100 WBC (Bld) 0.5 % Normal 0.2-2.0 [facility] Comment on above: Performed By: #### A MM #### [facility] [address] [place] [address] Dr. Nilay Gibbs EO # 0.1 103/ul Normal 0.0-0.7 [facility] Comment on above: Performed By: #### A MM #### [facility] [address] [place] [address] Dr. Nilay Gibbs Eosinophils/100 WBC (Bld) 1.0 % Normal 0.9-7.0 [facility] Comment on above: Performed By: #### A MM #### [facility] [address] [place] [address] Dr. Nilay Gibbs Erythrocyte distribution width (RBC) [Ratio] 12.9 % Normal 11.0-15.0 [facility] Comment on above: Performed By: #### A MM #### [facility] [address] [place] [address] Dr. Nilay Gibbs Hematocrit (Bld) [Volume fraction] 40.5 % Critically low 42.0-54.0 [facility] Comment on above: Performed By: #### A MM #### [facility] [address] [place] [address] Dr. Nilay Gibbs Hemoglobin (Bld) [Mass/Vol] 13.9 g/dL Critically low 14.0-18.0 [facility] Comment on above: Performed By: #### A MM #### [facility] [address] [place] [address] Dr. Nilay Gibbs IG # 0.02 10e3/ul Normal 0.00-0.03 [facility] Comment on above: Performed By: #### A MM #### [facility] [address] [place] [address] Dr. Nilay Gibbs IG % 0.3 % Normal 0.0-0.5 [facility] Comment on above: Performed By: #### A MM #### [facility] [address] [place] [address] Dr. Nilay Gibbs LYMPH # 2.7 103/ul Normal 1.2-3.8 [facility] Comment on above: Performed By: #### A MM #### [facility] [address] [place] [address] Dr. Nilay Gibbs Lymphocytes/100 WBC (Bld) 45.2 % Normal 20.5-60.0 [facility] Comment on above: Performed By: #### A MM #### [facility] [address] [place] [address] Dr. Nilay Gibbs MANUAL DIFF REQ NO Normal [facility] Comment on above: Performed By: #### A MM #### [facility] [address] [place] [address] Dr. Nilay Gibbs MCH (RBC) [Entitic mass] 29.8 pg Normal 25.9-34.0 [facility] Comment on above: Performed By: #### A MM #### [facility] [address] [place] [address] Dr. Nilay Gibbs MCHC (RBC) [Mass/Vol] 34.3 g/dL Normal 29.9-35.2 [facility] Comment on above: Performed By: #### A MM #### [facility] [address] [place] [address] Dr. Nilay Gibbs MCV (RBC) [Entitic vol] 86.9 fL Normal 80.0-94.0 [facility] Comment on above: Performed By: #### A MM #### [facility] [address] [place] [address] Dr. Nilay Gibbs MONO # 0.4 103/ul Normal 0.3-0.8 [facility] Comment on above: Performed By: #### A MM #### [facility] [address] [address] [address] Nilay Gibbs Monocytes/100 WBC (Bld) 6.3 % Normal 1.7-12.0 [facility] Comment on above: Performed By: #### A MM #### [facility] [address] [place] [address] Dr. Nilay Gibbs NEUT # 2.7 103/ul Normal 1.4-6.5 [facility] Comment on above: Performed By: #### A MM #### [facility] [address] [place] [address] Dr. Nilay Gibbs Neutrophils/100 WBC (Bld) 46.7 % Normal 43.0-75.0 [facility] Comment on above: Performed By: #### A MM #### [facility] [address] [place] [address] Dr. Nilay Gibbs Platelet mean volume (Bld) [Entitic vol] 10.4 fL Normal 9.5-13.5 [facility] Comment on above: Performed By: #### A MM #### [facility] [address] [place] [address] Dr. Nilay Gibbs PLT 237 103/ul Normal 150-450 [facility] Comment on above: Performed By: #### A MM #### [facility] [address] [place] [address] Dr. Nilay Gibbs RBC 4.66 106/ul Critically low 4.70-6.10 [facility] Comment on above: Performed By: #### A MM #### [facility] [address] [place] [address] Dr. Nilay Gibbs WBC 5.9 103/ul Normal 4.0-11.0 [facility] Comment on above: Performed By: #### A MM #### [facility] [address] [place] [address] Dr. Nilay Gibbs DRUG SCREEN RAPID (URINE)on 12-06-2021 AMP Negative Normal NEGATIVE [facility] Comment on above: Performed By: #### D RUGRPD #### [facility] [address] [place] [address] Dr. Nilay Gibbs BAR Negative Normal NEGATIVE [facility] Comment on above: Performed By: #### D RUGRPD #### [facility] [address] [place] [address] Dr. Nilay Gibbs BUP Negative Normal NEGATIVE [facility] Comment on above: Performed By: #### D RUGRPD #### [facility] [address] [place] [address] Dr. Nilay Gibbs BZO Positive Abnormal NEGATIVE [facility] Comment on above: Performed By: #### D RUGRPD #### [facility] [address] [place] [address] Dr. Nilay Gibbs ROQUE Negative Normal NEGATIVE [facility] Comment on above: Performed By: #### D RUGRPD #### [facility] [address] [place] [address] Dr. Nilay Gibbs CUT-OFFS SEE BELOW Normal [facility] Comment on above: Result Comment: AMP (Amphetamine): 500ng/mL, BAR (Barbituates): 200 ng/mL, BZO (Benzodiazepines): 150 ng/mL, BUP (Buprenorphine): 10 ng/mL, ROQUE (Cocaine): 150 ng/mL, mAMP (Methamphetamine): 500 ng/mL, MTD (Methadone): 200 ng/mL, OPI (Opiates): 100 ng/mL, OXY (Oxycodone): 100 ng/mL, PCP (Phencyclidine): 25 ng/mL, PPX (Propoxyphene): 300 ng/mL, THC (Cannabinoids): 50 ng/mL, TCA (Trycyclic Antidepressants): 300 ng/mL Performed By: #### D RUGRPD #### [facility] [address] [place] [address] Dr. Nilay Gibbs DRUG CUT HEADER DRUG CLASS TEST SYST EM CUT-OFF CONCENTRATIONS ARE FOLLOWS: Normal [facility] Comment on above: Performed By: #### D RUGRPD #### [facility] [address] [address] [address] Nilay Gibbs mAMP Negative Normal NEGATIVE [facility] Comment on above: Performed By: #### D RUGRPD #### [facility] [address] [address] [address] Nilay Gibbs MTD Negative Normal NEGATIVE [facility] Comment on above: Performed By: #### D RUGRPD #### [facility] [address] [address] [address] Nilay Gibbs OPI Negative Normal NEGATIVE [facility] Comment on above: Performed By: #### D RUGRPD #### [facility] [address] [place] [address] Dr. Nilay Gibbs OXY Negative Normal NEGATIVE [facility] Comment on above: Performed By: #### D RUGRPD #### [facility] [address] [place] [address] Dr. Nilay Gibbs PCP Negative Normal NEGATIVE [facility] Comment on above: Performed By: #### D RUGRPD #### [facility] [address] [place] [address] Dr. Nilay Gibbs PPX Negative Normal NEGATIVE [facility] Comment on above: Performed By: #### D RUGRPD #### [facility] [address] [place] [address] Dr. Nilay Gibbs TCA Negative Normal NEGATIVE [facility] Comment on above: Performed By: #### D RUGRPD #### [facility] [address] [place] [address] Dr. Nilay Gibbs THC Negative Normal NEGATIVE [facility] Comment on above: Performed By: #### D RUGRPD #### [facility] [address] [place] [address] Dr. Nilay Gibbs ETHANOL (BLD ALC)on 12-07-19 22 ALC NOTE NOTE: 80 mg/dl is th e legal limit for a blood alcohol level Normal [facility] Comment on above: Performed By: #### C MP #### [facility] [address] [place] [address] Dr. Nilay Gibbs Ethanol [Mass/Vol] 336 mg/dL Normal [facility] Comment on above: Performed By: #### C MP #### [facility] [address] [place] [address] Dr. Nilay Gibbs PROF 14(COMP METB)on 022 Albumin [Mass/Vol] 4.2 g/dL Normal 3.4-5.0 [facility] Comment on above: Performed By: #### C MP #### [facility] [address] [place] [address] Dr. Nilay Gibbs Albumin/Globulin [Mass ratio] 1.3 {ratio} Normal [facility] Comment on above: Performed By: #### C MP #### [facility] [address] [place] [address] Dr. Nilay Gibbs ALP [Catalytic activity/Vol] 104 U/L Normal 46-116 [facility] Comment on above: Performed By: #### C MP #### [facility] [address] [place] [address] Dr. Nilay Gibbs ALT [Catalytic activity/Vol] 41 U/L Normal 16-63 [facility] Comment on above: Performed By: #### C MP #### [facility] [address] [place] [address] Dr. Nilay Gibbs Anion gap [Moles/Vol] 11.5 mmol/L Normal [facility] Comment on above: Performed By: #### C MP #### [facility] [address] [place] [address] Dr. Nilay Gibbs AST [Catalytic activity/Vol] 37 U/L Normal 15-37 [facility] Comment on above: Performed By: #### C MP #### [facility] [address] [place] [address] Dr. Nilay Gibbs Bilirubin [Mass/Vol] 0.2 mg/dL Normal 0.2-1.0 [facility] Comment on above: Performed By: #### C MP #### [facility] [address] [place] [address] Dr. Nilay Gibbs Calcium [Mass/Vol] 8.6 mg/dL Normal 8.5-10.1 [facility] Comment on above: Performed By: #### C MP #### [facility] [address] [place] [address] Dr. Nilay Gibbs Chloride [Moles/Vol] 97 mmol/L Critically low 98-107 [facility] Comment on above: Performed By: #### C MP #### [facility] [address] [address] [address] Nilay Gibbs CO2 [Moles/Vol] 26.0 mmol/L Normal 21.0-32.0 [facility] Comment on above: Performed By: #### C MP #### [facility] [address] [place] [address] Dr. Nilay Gibbs Creatinine [Mass/Vol] 1.47 mg/dL Critically high 0.70-1.30 [facility] Comment on above: Performed By: #### C MP #### [facility] [address] [place] [address] Dr. Nilay Gibbs EGFR-AF SWAZI >60 Normal >=60 [facility] Comment on above: Performed By: #### C MP #### [facility] [address] [place] [address] Dr. Nilay Gibbs EGFR-NON AF SWAZI 56 mL/min/1.73m2 Critically low >=60 [facility] Comment on above: Performed By: #### C MP #### [facility] [address] [place] [address] Dr. Nilay Gibbs Globulin (S) [Mass/Vol] 3.2 g/dL Normal [facility] Comment on above: Performed By: #### C MP #### [facility] [address] [address] [address] Nilay Gibbs Glucose [Mass/Vol] 117 mg/dL Critically high 74-106 [facility] Comment on above: Performed By: #### C MP #### [facility] [address] [place] [address] Dr. Nilay Gibbs Potassium [Moles/Vol] 3.5 mmol/L Normal 3.5-5.1 [facility] Comment on above: Performed By: #### C MP #### [facility] [address] [place], [place] [address] Dr. Nilay Gibbs Protein [Mass/Vol] 7.4 g/dL Normal 6.4-8.2 [facility] Comment on above: Performed By: #### C MP #### [facility] [address] [place], [place] [address] Dr. Nilay Gibbs Sodium [Moles/Vol] 131 mmol/L Critically low 136-145 [facility] Comment on above: Performed By: #### C MP #### [facility] [address] [address] [address] Nilay Gibbs Urea nitrogen [Mass/Vol] 14.0 mg/dL Normal 7.0-18.0 [facility] Comment on above: Performed By: #### C MP #### [facility] [address] [address] [address] Nilay Gibbs Urea nitrogen/Creatinine [Mass ratio] 9.5 mg/mg Normal [facility] Comment on above: Performed By: #### C MP #### [facility] [address] [place], [place] [address] Dr. Nilay Gibbs SALICYLATEon 12-06-2021 SALICYLATE <2.8 Normal <=19.9 [facility] Comment on above: Performed By: #### A MM #### [facility] [address] [place], [place] [address] Dr. Nilay Gibbs MRI Shoulder w/o Lefton [...] by Stephen Ware on 11/11/2021 0955 Normal [facility] Activated partial thrombopla stin time (aPTT) in platelet poor plasma by coagulation aOrdered By: Kristal Goldberg on 09-27-2021 aPTT Coag (PPP) [Time] 34.7 s 25.1-36.5 [facility] Albumin [Mass/volume] in Ser um or PlasmaOrdered By: Kristal Goldberg on 09-27-2021 Albumin [Mass/Vol] 4.1 g/dL 3.2-5.5 [facility] Basophils Auto (Bld) [#/Vol] Ordered By: Kristal Goldberg on 09-27-2021 Basophils (Bld) [#/Vol] 0.0 10*3/uL 0.0-0.2 [facility] Basophils/100 WBC Auto (Bld) Ordered By: Kristal Goldberg on 09-27-2021 Basophils/100 WBC (Bld) 0.3 % . [facility] Bilirubin Auto test strip Ql (U)Ordered By: Kristal Goldberg on 09-27-2021 Bilirubin Ql (U) Negative Negative [facility] Blood hemoglobin measurement (mass/volume)Ordered By: Kristal Goldberg on 09-27-2021 Hemoglobin (Bld) [Mass/Vol] 13.6 g/dL 13.0-17.0 [facility] Blood leukocytes automated c ount (number/volume)Ordered By: Kristal Goldberg on 09-27-2021 WBC (Bld) [#/Vol] 5.7 10*3/uL 4.5-11.0 [facility] CBC AUTO DIFFon 09-27-2021 BASO # 0.0 103/ul Normal 0.0-0.1 [facility] Comment on above: Performed By: #### A MM #### [facility] Laboratory [address] [address] [address] Nilay Gibbs Basophils/100 WBC (Bld) 0.5 % Normal 0.2-2.0 [facility] Comment on above: Performed By: #### A MM #### [facility] [address] [address] [address] Nilay Gibbs EO # 0.1 103/ul Normal 0.0-0.7 [facility] Comment on above: Performed By: #### A MM #### [facility] [address] [address] [address] Nilay Gibbs Eosinophils/100 WBC (Bld) 1.6 % Normal 0.9-7.0 [facility] Comment on above: Performed By: #### A MM #### [facility] [address] [address] [address] Nilay Gibbs Erythrocyte distribution width (RBC) [Ratio] 14.0 % Normal 11.0-15.0 [facility] Comment on above: Performed By: #### A MM #### [facility] [address] [address] [address] Nilay Gibbs Hematocrit (Bld) [Volume fraction] 40.2 % Critically low 42.0-54.0 [facility] Comment on above: Performed By: #### A MM #### [facility] [address] [address] [address] Nilay Gibbs Hemoglobin (Bld) [Mass/Vol] 13.7 g/dL Critically low 14.0-18.0 [facility] Comment on above: Performed By: #### A MM #### [facility] [address] [address] [address] Nilay Gibbs IG # 0.01 10e3/ul Normal 0.00-0.03 [facility] Comment on above: Performed By: #### A MM #### [facility] [address] [place] [address] Dr. Nilay Gibbs IG % 0.2 % Normal 0.0-0.5 [facility] Comment on above: Performed By: #### A MM #### [facility] [address] [place] [address] Dr. Nilay Gibbs LYMPH # 2.1 103/ul Normal 1.2-3.8 [facility] Comment on above: Performed By: #### A MM #### [facility] [address] [place] [address] Dr. Nilay Gibbs Lymphocytes/100 WBC (Bld) 37.1 % Normal 20.5-60.0 [facility] Comment on above: Performed By: #### A MM #### [facility] [address] [place] [address] Dr. Nilay Gibbs MANUAL DIFF REQ NO Normal [facility] Comment on above: Performed By: #### A MM #### [facility] [address] [place] [address] Dr. Nilay Gibbs MCH (RBC) [Entitic mass] 30.1 pg Normal 25.9-34.0 [facility] Comment on above: Performed By: #### A MM #### [facility] [address] [place] [address] Dr. Nilay Gibbs MCHC (RBC) [Mass/Vol] 34.1 g/dL Normal 29.9-35.2 [facility] Comment on above: Performed By: #### A MM #### [facility] [address] [place] [address] Dr. Nilay Gibbs MCV (RBC) [Entitic vol] 88.4 fL Normal 80.0-94.0 [facility] Comment on above: Performed By: #### A MM #### [facility] [address] [place] [address] Dr. Nilay Gibbs MONO # 0.4 103/ul Normal 0.3-0.8 [facility] Comment on above: Performed By: #### A MM #### [facility] [address] [place] [address] Dr. Nilay Gibbs Monocytes/100 WBC (Bld) 7.2 % Normal 1.7-12.0 [facility] Comment on above: Performed By: #### A MM #### [facility] [address] [place] [address] Dr. Nilay Gibbs NEUT # 3.1 103/ul Normal 1.4-6.5 [facility] Comment on above: Performed By: #### A MM #### [facility] [address] [place] [address] Dr. Nilay Gibbs Neutrophils/100 WBC (Bld) 53.4 % Normal 43.0-75.0 [facility] Comment on above: Performed By: #### A MM #### [facility] [address] [place] [address] Dr. Nilay Gibbs Platelet mean volume (Bld) [Entitic vol] 10.3 fL Normal 9.5-13.5 [facility] Comment on above: Performed By: #### A MM #### [facility] [address] [place] [address] Dr. Nilay Gibbs PLT 254 103/ul Normal 150-450 [facility] Comment on above: Performed By: #### A MM #### [facility] [address] [place] [address] Dr. Nilay Gibbs RBC 4.55 106/ul Critically low 4.70-6.10 [facility] Comment on above: Performed By: #### A MM #### [facility] [address] [place] [address] Dr. Nilay Gibbs WBC 5.7 103/ul Normal 4.0-11.0 [facility] Comment on above: Performed By: #### A MM #### [facility] [address] [place] [address] HEAD WO CONon [...] RUFINA MARIN Date: 2021-09-27 10:27 Normal [facility] CTA HEAD WO W CONon 09-28-19 CTA [...] NEL KING Date: 2021-09-27 12:19 Normal [facility] CTA NECK WO W CONon 09-28-19 22 [...] NEL KING Date: 2021-09-27 12:06 Normal [facility] Creatine kinase [Enzymatic a ctivity/volume] in Serum or PlasmaOrdered By: Kristal Goldberg on 09-27-2021 CK [Catalytic activity/Vol] 181 U/L 22-269 [facility] Creatinine and Glomerular fi ltration rate.predicted panel (S/P/Bld)Ordered By: Kristal Goldberg on 09-27-2021 Creatinine [Mass/Vol] 1.36 mg/dL 0.64-1.27 [facility] Eosinophils Auto (Bld) [#/Vo l]Ordered By: Kristal Goldberg on 09-27-2021 Eosinophils (Bld) [#/Vol] 0.1 10*3/uL 0.0-0.45 [facility] Eosinophils/100 WBC Auto (Bl d)Ordered By: Kritsal Goldberg on 09-27-2021 Eosinophils/100 WBC (Bld) 1.2 % . [facility] Erythrocyte distribution wid th Auto (RBC) [Ratio]Ordered By: Kristal Goldberg on 09-27-2021 Erythrocyte distribution width (RBC) [Ratio] 14.5 % 12.0-14.8 [facility] Estimated glomerular filtrat ion rate (GFR) non- AmericanOrdered By: Kristal Goldberg on 09-27-2021 GFR/1.73 sq M.predicted among non-blacks MDRD (S/P/Bld) [Vol rate/Area] > 60 mL/Min [facility] Globulin Calc (S) [Mass/Vol] Ordered By: Kristal Goldberg on 09-27-2021 Globulin (S) [Mass/Vol] 2.4 g/dL [facility] Hematocrit Auto (Bld) [Volum e fraction]Ordered By: Kristal Goldberg on 09-27-2021 Hematocrit (Bld) [Volume fraction] 40.8 % 38.8-50.0 [facility] Ketones Auto test strip (U) [Mass/Vol]Ordered By: Kristal Goldberg on 09-27-2021 Ketones (U) [Mass/Vol] Negative Negative [facility] Laboratory - CoagulationOrde red By: Kristal Goldberg on 09-27-2021 PT Coag (PPP) [Time] 11.8 s 9.0-12.9 [facility] - Hematology and Cell countsOrdered By: Kristal Goldberg on 09-27-2021 Nucleated RBC/100 WBC (Bld) [Ratio] 0.0 % 0-0.5 [facility] Lymphocytes Auto (Bld) [#/Vo l]Ordered By: Kristal Goldberg on 09-27-2021 Lymphocytes (Bld) [#/Vol] 1.8 10*3/uL 1.00-4.8 [facility] Lymphocytes/100 WBC Auto (Bl d)Ordered By: Kristal Goldberg on 09-27-2021 Lymphocytes/100 WBC (Bld) 31.2 % . [facility] MCH Auto (RBC) [Entitic mass ]Ordered By: Kristal Goldberg on 09-27-2021 MCH (RBC) [Entitic mass] 30.1 pg 27.5-35.2 [facility] MCHC Auto (RBC) [Mass/Vol]Or dered By: Kristal Goldberg on 09-27-2021 MCHC (RBC) [Mass/Vol] 33.4 g/dL 32.5-35.6 [facility] MCV Auto (RBC) [Entitic vol] Ordered By: Kristal Goldberg on 09-27-2021 MCV (RBC) [Entitic vol] 90.3 fL 83.5-101 [facility] Monocytes Auto (Bld) [#/Vol] Ordered By: Kristal Goldberg on 09-27-2021 Monocytes (Bld) [#/Vol] 0.3 10*3/uL 0.0-0.8 [facility] Monocytes/100 WBC Auto (Bld) Ordered By: Kristal Goldberg on 09-27-2021 Monocytes/100 WBC (Bld) 6.0 % . [facility] Neutrophils Auto (Bld) [#/Vo l]Ordered By: Kristal Goldberg on 09-27-2021 Neutrophils (Bld) [#/Vol] 3.5 10*3/uL 1.8-7.7 [facility] Neutrophils/100 WBC Auto (Bl d)Ordered By: Kristal Goldberg on 09-27-2021 Neutrophils/100 WBC (Bld) 61.3 % . [facility] No Panel InformationOrdered By: Kristal Goldberg on 09-27-2021 Estimated GFR () > 60 mL/Min [facility] Comment on above: GFR estimated refere nce range: According to KDOQI guidelines, <60 ml/min/1.73m2 is sufficient to diagnose a patient with chronic kidney disease. Pharmacy Creatinine Clearance (Chem 94.06 [facility] PROF CHEM 8 (BAS METB)on Anion gap [Moles/Vol] 10.0 mmol/L Normal [facility] Comment on above: Performed By: #### C MP #### [facility] [address] [address] [address] Nilay Gibbs Calcium [Mass/Vol] 9.4 mg/dL Normal 8.5-10.1 [facility] Comment on above: Performed By: #### C MP #### [facility] [address] [address] [address] Nilay Gibbs Chloride [Moles/Vol] 103 mmol/L Normal 98-107 [facility] Comment on above: Performed By: #### C MP #### [facility] [address] [address] [address] Nilay Gibbs CO2 [Moles/Vol] 27.6 mmol/L Normal 21.0-32.0 [facility] Comment on above: Performed By: #### C MP #### [facility] [address] [place] [address] Dr. Nilay Gibbs Creatinine [Mass/Vol] 1.39 mg/dL Critically high 0.70-1.30 [facility] Comment on above: Performed By: #### C MP #### [facility] [address] [place] [address] Dr. Nilay Gibbs EGFR-AF SWAZI >60 Normal >=60 [facility] Comment on above: Performed By: #### C MP #### [facility] [address] [address] [address] Nilay Gibbs EGFR-NON AF SWAZI 60 mL/min/1.73m2 Normal >=60 [facility] Comment on above: Performed By: #### C MP #### [facility] [address] [address] [address] Nialy Gibbs Glucose [Mass/Vol] 115 mg/dL Critically high 74-106 [facility] Comment on above: Performed By: #### C MP #### [facility] [address] [place] [address] Dr. Nilay Gibbs Potassium [Moles/Vol] 3.6 mmol/L Normal 3.5-5.1 [facility] Comment on above: Performed By: #### C MP #### [facility] [address] [address] [address] Nilay Gibbs Sodium [Moles/Vol] 137 mmol/L Normal 136-145 [facility] Comment on above: Performed By: #### C MP #### [facility] [address] [place] [address] Dr. Nilay Gibbs Urea nitrogen [Mass/Vol] 17.0 mg/dL Normal 7.0-18.0 [facility] Comment on above: Performed By: #### C MP #### [facility] [address] [place] [address] Dr. Nilay Gibbs Urea nitrogen/Creatinine [Mass ratio] 12.2 mg/mg Normal [facility] Comment on above: Performed By: #### C MP #### [facility] [address] [place] [address] Dr. Nilay Gibbs PROTIMEon 09-27-2021 INR Coag (PPP) [Relative time] 0.99 {INR} Normal [facility] Comment on above: Performed By: #### P T, PTT #### [facility] [address] [place] [address] Dr. Nilay Gibbs INR GUIDELINES SEE BELOW Normal [facility] Comment on above: Result Comment: PETRONA RED INR: 2.0 - 3.0 CONDITIONS NOT LISTED BELOW 2.5 - 3.5 FOR PROSTHETIC HEART VALVE REPLACEMENT 2.5 - 3.5 RECURRENT THROMBOSIS Performed By: #### P T, PTT #### [facility] [address] [place] [address] Dr. Nilay Gibbs PT Coag (PPP) [Time] 10.7 s Normal 9.0-11.6 [facility] Comment on above: Performed By: #### P T, PTT #### [facility] [address] [place] [address] Dr. Nilay Gibbs PTTon 09-27-2021 aPTT Coag (Bld) [Time] 29.1 s Normal 22.3-36.2 [facility] Comment on above: Performed By: #### P T, PTT #### [facility] [address] [address] [address] Nilay Gibbs Platelet mean volume Auto (B ld) [Entitic vol]Ordered By: Kristal Goldberg on 09-27-2021 Platelet mean volume (Bld) [Entitic vol] 8.7 fL 6.6-10.1 [facility] Platelet poor plasma interna tional normalized ratio (INR) by coagulation assay (relatOrdered By: Kristal Goldberg on 09-27-2021 INR Coag (PPP) [Relative time] 1.1 {INR} [facility] Comment on above: INR Therapeutic Rang [...] Platelets (Bld) [#/Vol] 240 10*3/uL 150-450 [facility] Protein Auto test strip (U) [Mass/Vol]Ordered By: Kristal Goldberg on 09-27-2021 Protein (U) [Mass/Vol] Negative Negative [facility] Protein [Mass/volume] in Ser um or PlasmaOrdered By: Kristal Goldberg on 09-27-2021 Protein [Mass/Vol] 6.5 g/dL 6.1-7.9 [facility] RBC Auto (Bld) [#/Vol]Ordere d By: Kristal Goldberg on 09-27-2021 RBC (Bld) [#/Vol] 4.52 10*6/uL 3.90-5.60 [facility] Serum or plasma alanine marquez otransferase measurement without P-5'-P (enzymatic activiOrdered By: Kristal Goldberg on 09-27-2021 ALT No additional P-5'-P [Catalytic activity/Vol] 22 U/L 10-60 [facility] Serum or plasma albumin/glob ulin mass ratioOrdered By: Kristal Goldberg on 09-27-2021 Albumin/Globulin [Mass ratio] 1.7 {ratio} [facility] Serum or plasma alkaline kimi sphatase measurement (enzymatic activity/volume)Ordered By: Kristal Goldberg on 09-27-2021 ALP [Catalytic activity/Vol] 72 U/L 32-92 [facility] Serum or plasma aspartate am inotransferase measurement (enzymatic activity/volume)Ordered By: Kristal Goldberg on 09-27-2021 AST [Catalytic activity/Vol] 24 U/L 10-42 [facility] Serum or plasma calcium isabel urement (mass/volume)Ordered By: Kristal Goldberg on 09-27-2021 Calcium [Mass/Vol] 9.6 mg/dL 8.2-10.2 [facility] Serum or plasma chloride airam surement (moles/volume)Ordered By: Kristal Goldberg on 09-27-2021 Chloride [Moles/Vol] 98 mmol/L 95-114 [facility] Serum or plasma creatine kin ase MB (CKMB)/total creatine kinase (CK) ratio by calculaOrdered By: Kristal Goldberg on 09-27-2021 CK.MB Calc [Catalytic fraction] 1.7 % 0.00-2.50 [facility] Serum or plasma creatine kin ase MB measurement (mass/volume)Ordered By: Kristal Goldberg on 09-27-2021 CK.MB [Mass/Vol] 3.1 ng/mL 0.6-6.3 [facility] Serum or plasma glucose isabel urement (mass/volume)Ordered By: Kristal Goldberg on 09-27-2021 Glucose [Mass/Vol] 94 mg/dL 70-100 [facility] Comment on above: ADA recommended refe [...] 09-27-2021 Potassium [Moles/Vol] 3.9 mmol/L 3.5-5.1 [facility] Serum or plasma sodium measu rement (moles/volume)Ordered By: Kristal Goldberg on 09-27-2021 Sodium [Moles/Vol] 135 mmol/L 136-146 [facility] Serum or plasma total biliru bin measurement (mass/volume)Ordered By: Kristal Goldberg on 09-27-2021 Bilirubin [Mass/Vol] 0.8 mg/dL 0.3-1.2 [facility] Serum or plasma total carbon dioxide measurement (moles/volume)Ordered By: Kristal Goldberg on 09-27-2021 CO2 [Moles/Vol] 24.8 mmol/L 22.0-30.0 [facility] Serum or plasma urea nitroge n measurement (mass/volume)Ordered By: Kristal Goldberg on 09-27-2021 Urea nitrogen [Mass/Vol] 13 mg/dL 9-23 [facility] TROPONIN, HIGH SENSITIVITYon 09-27-2021 HSTROP 4.5 pg/mL Normal 4.0-76.1 [facility] Comment on above: Result Comment: CUT- OFF POINTS HAVE BEEN ESTABLISHED BASED ON THE FOURTH UNIVERSAL DEFINITIONS OF MYOCARDIAL INFARCTION. THE UPPER REFERENCE LIMIT (URL) OF TROPONIN, DEFINED THE 99TH PERCENTILE OF cTnI DISTRIBUTION IN A REFERENCE POPULATION, HAS BEEN CONFIRMED THE DECISION THRESHOLD FOR [place] DIAGNOSIS. Performed By: #### C MP #### [facility] [address] [place] [address] Dr. Nilay Gibbs Troponin I.cardiac [Mass/vol ume] in Serum or Plasma by High sensitivity methodOrdered By: Kristal Goldberg on 09-27-2021 Troponin I.cardiac High sensitivity method [Mass/Vol] < 3 pg/mL 0-20 [facility] Urine appearanceOrdered By: Kristal Goldberg on 09-27-2021 Appearance (U) Clear Clear [facility] Urine colorOrdered By: Aurora Goldberg on 09-27-2021 Color (U) Yellow Yellow [facility] Urine glucose measurement by automated test strip (mass/volume)Ordered By: Kristal Goldberg on 09-27-2021 Glucose Auto test strip (U) [Mass/Vol] Normal mg/dL Normal [facility] Urine hemoglobin detection b y automated test stripOrdered By: Kristal Goldberg on 09-27-2021 Hemoglobin Auto test strip Ql (U) Negative Negative [facility] Urine leukocyte esterase det ection by automated test stripOrdered By: Kristal Goldberg on 09-27-2021 Leukocyte esterase Auto test strip Ql (U) Negative Negative [facility] Urine nitrite detection by a utomated test stripOrdered By: Kristal Goldberg on 09-27-2021 Nitrite Auto test strip Ql (U) Negative Negative [facility] Urobilinogen Auto test strip (U) [Mass/Vol]Ordered By: Kristal Goldberg on 09-27-2021 Urobilinogen (U) [Mass/Vol] Normal mg/dL Normal [facility] pH Auto test strip (U)Ordere d By: Kristal Goldberg on 09-27-2021 pH (U) 1.005 [pH] 1.001-1.030 [facility] pH (U) 5.5 [pH] 5.0-9.0 [facility] CT LUMBAR SPINE WO CONTRASTo n [...] MD 07/12/18 Final result Normal [facility] CT THORACIC SPINE WO CONTRAS [...] MD 07/12/18 Final result Normal [facility] Vital Signs Date Time Vital Sign Value Performing Clinician Florentin quinn 01-04-2024 08:120500 Body height 188 cm Delmy Boyle MD Work Phone: [facility] 01-04-2024 08:12050 Body mass index (BMI) [Ratio] 30.39 kg/m2 Delmy Boyle MD Work Phone: [facility] 01-04-2024 08:120500 Body weight 107.4 kg Delmy Boyle MD Work Phone: [facility] 01-04-2024 08:12-0500 Diastolic blood pressure 77 mm[Hg] Delmy Boyle MD Work Phone: [facility] 01-04-2024 08:12-0500 Heart rate 84 /min Delmy Boyle MD Work Phone: [facility] 01-04-2024 08:12-0500 Respiratory rate 18 /min Delmy Boyle MD Work Phone: [facility] 01-04-2024 08:12-0500 Systolic blood pressure 110 mm[Hg] Delmy Boyle MD Work Phone: [facility] 08-22-2023 12:40-0400 Body height 190.5 cm MD Leydi Aceves Work Phone: [facility] 08-22-2023 12:40-0400 Body mass index (BMI) [Ratio] 31.6 kg/m2 MD Leydi Aceves Work Phone: [facility] 08-22-2023 12:40-0400 Body temperature 98.6 [degF] MD Leydi Aceves Work Phone: [facility] 08-22-2023 12:40-0400 Body weight 114.81 kg MD Leydi Aceves Work Phone: [facility] 08-22-2023 12:40-0400 Heart rate 84 /min MD Leydi Aceves Work Phone: [facility] 08-22-2023 12:40-0400 Respiratory rate 18 /min MD Leydi Aceves Work Phone: [facility] 08-22-2023 12:40-0400 SaO2% (BldA) [Mass fraction] 97 % MD Leydi Aceves Work Phone: [facility] 06-24-2023 14:34-0400 Body mass index (BMI) [Ratio] 29.92 kg/m2 Delmy Boyle MD Work Phone: [facility] 06-24-2023 14:34-0400 Body weight 105.69 kg Delmy Boyle MD Work Phone: [facility] 06-24-2023 14:34-0400 Diastolic blood pressure 87 mm[Hg] Delmy Boyle MD Work Phone: [facility] 06-24-2023 14:34-0400 Heart rate 89 /min Delmy Boyle MD Work Phone: [facility] 06-24-2023 14:34-0400 Respiratory rate 18 /min Delmy Boyle MD Work Phone: [facility] 06-24-2023 14:34-0400 SaO2% (BldA) [Mass fraction] 100 % Delmy Boyle MD Work Phone: [facility] 06-24-2023 14:34-0400 Systolic blood pressure 124 mm[Hg] Delmy Boyle MD Work Phone: [facility] 01-01-2022 11:34-0400 Body weight 99.79 kg Delmy Boyle MD Work Phone: [facility] 01-01-2022 11:34-0400 Diastolic blood pressure 65 mm[Hg] Delmy Boyle MD Work Phone: [facility] 01-01-2022 11:34-0400 Heart rate 65 /min Delmy Boyle MD Work Phone: [facility] 01-01-2022 11:34-0400 Systolic blood pressure 102 mm[Hg] Delmy Boyle MD Work Phone: [facility] 12-10-2021 15:30-0400 Diastolic blood pressure 71 mm[Hg] MD Leydi Aceves Work Phone: [facility] 12-10-2021 15:30-0400 Heart rate 70 /min MD Leydi Aceves Work Phone: [facility] 12-10-2021 15:30-0400 Respiratory rate 16 /min MD Leydi Aceves Work Phone: [facility] 12-10-2021 15:30-0400 SaO2% (BldA) [Mass fraction] 98 % MD Leydi Aceves Work Phone: [facility] 12-10-2021 15:30-0400 Systolic blood pressure 113 mm[Hg] MD Leydi Aceves Work Phone: [facility] 12-10-2021 07:30-0400 Body temperature 98 [degF] MD Leydi Aceves Work Phone: [facility] 12-08-2021 15:45-0400 Body height 190.5 cm MD Leydi Aceves Work Phone: [facility] 12-08-2021 08:56-0400 Body weight 99.79 kg MD Leydi Aceves Work Phone: [facility] 09-27-2021 21:38-0400 Heart rate 68 /min MD Leydi Aceves Work Phone: [facility] 09-27-2021 21:30-0400 Diastolic blood pressure 79 mm[Hg] MD Leydi Aceves Work Phone: [facility] 09-27-2021 21:30-0400 Respiratory rate 20 /min MD Leydi Aceves Work Phone: [facility] 09-27-2021 21:30-0400 SaO2% (BldA) [Mass fraction] 100 % MD Leydi Aceves Work Phone: [facility] 09-27-2021 21:30-0400 Systolic blood pressure 135 mm[Hg] MD Leydi Aceves Work Phone: [facility] 09-27-2021 18:31-0400 Body height 190.5 cm MD Leydi Aceves Work Phone: [facility] 09-27-2021 18:31-0400 Body temperature 98 [degF] MD Leydi Aceves Work Phone: [facility] 09-27-2021 18:31-0400 Body weight 99.79 kg MD Leydi Aceves Work Phone: [facility] Encounters Encounter Date Encounter Type Care Provider Facility Start: 01-07-2024 End: 01-07-2024 Jasen MARINELLI Work Phone: [facility] Comment on above: 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) Start: 01-04-2024 End: 01-04-2024 Telephone encounter Delmy Boyle MD Work Phone: Rheumatology Start: 01-04-2024 End: 01-04-2024 Subsequent hospital visit by physician Xr [facility] Work Phone: [facility] Radiology General Comment on above: 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] Start: 01-04-2024 End: 01-04-2024 ambulatory DELMY BOYLE Facility:[facility] Start: 01-04-2024 End: 01-04-2024 Patient encounter procedure Delmy Boyle MD Work Phone: Rheumatology Comment on above: Chronic tophaceous g out (Primary Dx); Stage 3 chronic kidney disease, unspecified whether stage 3a or 3b CKD (HCC); Encounter for long-term (current) use of medications; Other secondary osteoarthritis of multiple sites Start: 12-30-2023 End: 12-30-2023 ambulatory DELMY BOYLE Facility:[facility] Start: 12-30-2023 End: 12-30-2023 Clinisync Result Encounter Generic External Data Provider [facility] External Department Unsolicited Start: 12-30-2023 End: 12-30-2023 Clinisync Result Encounter Generic External Data Provider [facility] External Department Unsolicited Start: 12-10-2023 End: 12-15-2023 Refill Marina MARINELLI Work Phone: [facility] Comment on above: 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) Start: 12-07-2023 End: 12-07-2023 Refjermaine Aceves MD Work Phone: [facility] Comment on above: Anxiety Start: 10-11-2023 End: 10-11-2023 ambulatory LEYDI ACEVES Not Available Start: 08-22-2023 End: 08-22-2023 ambulatory MD Leydi Aceves Work Phone: [facility] Work Phone: Start: 08-22-2023 End: 08-22-2023 Patient encounter procedure MD Leydi Aceves Work Phone: [facility] Work Phone: Start: 08-16-2023 Refill Delmy newton MD Work Phone: Rheumatology Comment on above: Refill Request Start: 08-03-2023 Registered Recurring MD Leydi Aceves Work Phone: [facility] Start: 08-03-2023 ambulatory Nicola Castellon acility:[facility] Start: 07-06-2023 ambulatory Delmy newton MD Work Phone: Rheumatology Start: 07-06-2023 Patient encounter procedure Delmy Boyle MD Work Phone: Rheumatology Comment on above: Flare up Start: 07-05-2023 Refill Delmy newton MD Work Phone: Rheumatology Comment on above: Refill Request Start: 06-24-2023 End: 06-24-2023 ambulatory DELMY BOYLE Facility:[facility] Start: 06-24-2023 End: 06-24-2023 Patient encounter procedure Delmy Boyle MD Work Phone: Rheumatology Comment on above: Chronic tophaceous g out (Primary Dx); Encounter for long-term (current) use of medications; Stage 3 chronic kidney disease, unspecified whether stage 3a or 3b CKD (HCC); Idiopathic chronic gout of multiple sites with tophus Start: 06-21-2023 End: 06-21-2023 ambulatory DELMY BOYLE Facility:[facility] Start: 06-10-2023 End: 06-10-2023 ambulatory LEYDI ACEVES Not Available Start: 05-18-2023 End: 05-18-2023 ambulatory LEYDI ACEVES Not Available Start: 05-09-2023 End: 05-12-2023 ambulatory Nicola Leyva Facility:[facility] Start: 05-03-2023 End: 05-03-2023 ambulatory LEYDI ACEVES Not Available Start: 04-05-2023 Refill Leydi Mansfield Work Phone: [facility] Start: 03-08-2023 End: 03-08-2023 ambulatory DELMY BOYLE Facility:[facility] Start: 03-04-2023 End: 03-04-2023 ambulatory DELMY BOYLE Facility:[facility] Start: 02-24-2023 End: 02-24-2023 Emergency department patient visit Ladi Huber Facility[facility] Start: 02-19-2023 End: 02-20-2023 ambulatory KAYCE Chloé [facility], [facility] Start: 01-12-2023 End: 01-12-2023 ambulatory MARINA REES Not Available Start: 11-13-2022 ambulatory Delmy newton MD Work Phone: Rheumatology Comment on above: Prednisone Start: 11-13-2022 E-mail encounter fro m caregiver Delmy Boyle MD Work Phone: [facility] Start: 11-13-2022 Telephone encounter Delmy luna MD Work Phone: [facility] [place] Comment on above: Patient Request Start: 07-24-2022 End: 07-24-2022 ambulatory MATIAS SALAS [...] unspecified whether stage 3a or 3b CKD ([facility]) Start: 12-19-2021 Refill Delmy newton MD Work Phone: Rheumatology Comment on above: Refill Request Start: 12-07-2021 End: 12-10-2021 Evaluation and management of inpatient MD Leydi Aceves Work Phone: [address] Start: 12-06-2021 End: 12-07-[address] LEYDI ACEVES Facility:[facility] Start: 10-19-2021 End: 10-19-2021 ambulatory ZHAO MAURER . Facility:[facility] Start: 09-27-2021 End: 09-27-2021 Emergency department patient visit MD Leydi Aceves Work Phone: [facility] Start: 09-27-2021 End: 09-27-2021 ambulatory ZHAO MAURER . 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 Start: 07-12-2018 End: 07-13-2018 Emergency department patient visit LEYDI ACEVES [facility] Procedures Date Procedure Procedure Detail Performing Clinician Start: 01-04-2024 Radex foot complete minimum 3 views Delmy Boyle MD Work Phone: Start: 12-30-2023 [facility] CBC W AUTO DIFF BLD Generic External Data Provider Start: 08-19-2020 Adult depression screening assessment Delmy Boyle MD Work Phone: Start: 07-12-2018 Ct lumbar spine w/o contrast material RUGEN KETAN Start: 07-12-2018 Ct thoracic spine w/ o contrast material RUGEN KETAN Plan of Treatment Date Care Activity Detail Author Start: 06-01-2026 Urine microalbumin profile [facility] Start: 12-29-2024 Creatinine measurement Serum Creatinine [facility] Start: 10-03-2024 End: 10-03-2024 Patient encounter procedure 10/03/2024 8:00 AM EDT Office Visit Rheumatology [address] [place] [address] [place] [address] [place] [address] Return in about 9 months (around 10/03/2024). Rheumatology Comment on above: Return in about 9 months (around ). Start: 09-25-2024 End: 12-25-2024 Alanine aminotransferase [Enzymatic activity/volume] in Serum or Plasma ALANINE AMINOTRANSFERASE / SGPT Lab Routine Chronic tophaceous gout Encounter for long-term (current) use of medications Expected: 09/25/2024 (Approximate), Expires: 12/25/2024 [facility] Comment on above: Expected: 09/25/2024 (Approximate), Expi res: 12/25/2024 Start: 09-25-2024 End: 12-25-2024 Albumin [Mass/volume] in Serum or Plasma ALBUMIN Lab Routine Chronic tophaceous gout Encounter for long-term (current) use of medications Expected: 09/25/2024 (Approximate), Expires: 12/25/2024 [facility] Comment on above: Expected: 09/25/2024 (Approximate), Expi res: 12/25/2024 Start: 09-25-2024 End: 12-25-2024 Aspartate aminotransferase [Enzymatic activity/volume] in Serum or Plasma ASPARTATE AMINOTRANSFERASE/SGOT Lab Routine Chronic tophaceous gout Encounter for long-term (current) use of medications Expected: 09/25/2024 (Approximate), Expires: 12/25/2024 [facility] Comment on above: Expected: 09/25/2024 (Approximate), Expi res: 12/25/2024 Start: 09-25-2024 End: 12-25-2024 C reactive protein [Mass/volume] in Serum or Plasma C-REACTIVE PROTEIN Lab Routine Chronic tophaceous gout Encounter for long-term (current) use of medications Expected: 09/25/2024 (Approximate), Expires: 12/25/2024 [facility] Comment on above: Expected: 09/25/2024 (Approximate), Expi res: 12/25/2024 Start: 09-25-2024 End: 12-25-2024 CBC W Auto Differential panel - Blood COMPLETE BLOOD COUNT AND DIFFERENTIAL Lab Routine Chronic tophaceous gout Encounter for long-term (current) use of medications Expected: 09/25/2024 (Approximate), Expires: 12/25/2024 [facility] Comment on above: Expected: 09/25/2024 (Approximate), Expi res: 12/25/2024 Start: 09-25-2024 End: 12-25-2024 CREATININE BLD CREATININE BLD Lab Routine Chronic tophaceous gout Encounter for long-term (current) use of medications Expected: 09/25/2024 (Approximate), Expires: 12/25/2024 [facility] Comment on above: Expected: 09/25/2024 (Approximate), Expi res: 12/25/2024 Start: 09-25-2024 End: 12-25-2024 Erythrocyte sedimentation rate SEDIMENTATION RATE, WESTERGREN Lab Routine Chronic tophaceous gout Encounter for long-term (current) use of medications Expected: 09/25/2024 (Approximate), Expires: 12/25/2024 [facility] Comment on above: Expected: 09/25/2024 (Approximate), Expi res: 12/25/2024 Start: 09-25-2024 End: 12-25-2024 Urate [Mass/volume] in Serum or Plasma URIC ACID Lab Routine Chronic tophaceous gout Encounter for long-term (current) use of medications Expected: 09/25/2024 (Approximate), Expires: 12/25/2024 [facility] Comment on above: Expected: 09/25/2024 (Approximate), Expi res: 12/25/2024 Start: 03-04-2024 Creatinine measurement Serum Creatinine [facility] Start: 01-17-2024 End: 01-17-2024 Patient encounter procedure 01/17/2024 9:15 AM EST Office Visit Orthopaedics [address] [place] [address] [place] [address] [place] [address] 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] Orthopaedics Comment on above: Other secondary osteoarthritis of multip le sites [M15.3] Start: 01-11-2024 End: 01-11-2024 Patient encounter procedure 01/11/2024 11:00 AM EST Office Visit [facility] [address] [facility] [address] [place] [address] Leydi Aceves MD [address] [facility] [address] [place] [address] [facility] Start: 01-04-2024 End: 01-04-2024 Patient encounter procedure 01/04/2024 8:20 AM EST Office Visit Rheumatology [address] [place] [address] [place] [address] [place] [address] FU 6-7 MON WITH MD Rheumatology Comment on above: FU 6-7 MON WITH Start: 10-31-2023 Covid-19 Vaccine ( season) Covid-19 Vaccine ( season) [facility] Start: 10-31-2023 Influenza vaccination [facility] Start: 09-24-2023 End: 09-24-2023 Patient encounter procedure 09/24/2023 8:00 AM EDT Office Visit Rheumatology [address] [facility] [address] [place], [place] [id number] Kelly Martell, [employer].RETAIL CUSTOMER SERVICE SPECIALIST [address] [facility] [place] [address] FU 3-4 MON WITH STEFANIA Rheumatology Comment on above: FU 3-4 MON WITH STEFANIA Start: 08-29-2023 Influenza vaccination Influenza Vaccine (#1) [facility] Comment on above: Postponed from 10/30/2022 (Other Patient Reasons) Start: 08-13-2023 Serum Creatinine Serum Creatinine [facility] Start: 03-01-2023 Behavioral Health Screening Behavioral Health Screening [facility] Start: 01-01-2023 BP CONTROLLED (<130/80) BP CONTROLLED (<130/80) [facility] Start: 10-30-2022 Covid-19 Vaccine () Covid-19 Vaccine () [facility] Start: 10-30-2022 Influenza vaccination [facility] Start: 07-13-2022 End: 09-12-2022 Alanine aminotransferase [Enzymatic activity/volume] in Serum or Plasma ALT/SGPT Lab 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 Encounter for long-term (current) use of medications Expected: 07/13/2022 (Approximate), Expires: 09/12/2022 [facility] Work Phone: Comment on above: Expected: 07/13/2022 (Approximate), Expi res: 09/12/2022 Start: 07-13-2022 End: 09-12-2022 Albumin [Mass/volume] in Serum or Plasma ALBUMIN BLD Lab 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 Encounter for long-term (current) use of medications Expected: 07/13/2022 (Approximate), Expires: 09/12/2022 [facility] Work Phone: Comment on above: Expected: 07/13/2022 (Approximate), Expi res: 09/12/2022 Start: 07-13-2022 End: 09-12-2022 Aspartate aminotransferase [Enzymatic activity/volume] in Serum or Plasma AST/SGOT BLD Lab 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 Encounter for long-term (current) use of medications Expected: 07/13/2022 (Approximate), Expires: 09/12/2022 [facility] Work Phone: Comment on above: Expected: 07/13/2022 (Approximate), Expi res: 09/12/2022 Start: 07-13-2022 End: 09-12-2022 C reactive protein [Mass/volume] in Serum or Plasma C-REACTIVE PROTEIN (CRP) Lab 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 Encounter for long-term (current) use of medications Expected: 07/13/2022 (Approximate), Expires: 09/12/2022 [facility] Work Phone: Comment on above: Expected: 07/13/2022 (Approximate), Expi res: 09/12/2022 Start: 07-13-2022 End: 09-12-2022 CBC W Auto Differential panel - Blood CBC + DIFF Lab 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 Encounter for long-term (current) use of medications Expected: 07/13/2022 (Approximate), Expires: 09/12/2022 [facility] Work Phone: Comment on above: Expected: 07/13/2022 (Approximate), Expi res: 09/12/2022 Start: 07-13-2022 End: 09-12-2022 CREATININE BLD CREATININE BLD Lab 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 Encounter for long-term (current) use of medications Expected: 07/13/2022 (Approximate), Expires: 09/12/2022 [facility] Work Phone: Comment on above: Expected: 07/13/2022 (Approximate), Expi res: 09/12/2022 Start: 07-13-2022 End: 09-12-2022 Erythrocyte sedimentation rate SED RATE WESTERGREN Lab 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 Encounter for long-term (current) use of medications Expected: 07/13/2022 (Approximate), Expires: 09/12/2022 [facility] Work Phone: Comment on above: Expected: 07/13/2022 (Approximate), Expi res: 09/12/2022 Start: 07-13-2022 End: 09-12-2022 Urate [Mass/volume] in Serum or Plasma URIC ACID BLOOD Lab 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 Encounter for long-term (current) use of medications Expected: 07/13/2022 (Approximate), Expires: 09/12/2022 [facility] Work Phone: Comment on above: Expected: 07/13/2022 (Approximate), Expi res: 09/12/2022 Start: 04-23-2022 SERUM CREATININE SERUM CREATININE [facility] Start: 03-01-2022 DEPRESSION ASSESSMENT DEPRESSION ASSESSMENT [facility] Start: 12-10-2021 [facility] Start: 12-07-2021 Hospital admission [facility] Start: 12-07-2021 Referral to [employer] [facility] Start: 10-30-2021 Influenza vaccination [facility] Start: 08-19-2021 Adult depression screening assessment DEPRESSION SCREENING [facility] Start: 03-01-2021 DEPRESSION ASSESSMENT DEPRESSION ASSESSMENT [facility] Start: 2009 Hepatitis B Vaccine (1 of 3 - 19+ 3-dose series) Hepatitis B Vaccine (1 of 3 - 19+ 3-dose series) [facility] Start: 02-26-2008 ANNUAL PCP TEAM CHRONIC DISEASE VISIT ANNUAL PCP TEAM CHRONIC DISEASE VISIT [facility] Start: 02-26-2008 Anxiety Screening Anxiety Screening [facility] Start: 02-26-2008 BP CONTROLLED (<130/80) BP CONTROLLED (<130/80) [facility] Start: 02-26-2008 Depression Screening Depression Screening [facility] Start: 02-26-2008 HIV SCREENING HIV SCREENING [facility] Start: 02-26-2008 HIV screening HIV Screening [facility] Start: 1995 COVID-19 VACCINE (#1) COVID-19 VACCINE (#1) [facility] Start: 1990 COVID-19 VACCINE (#1) COVID-19 VACCINE (#1) [facility] Start: 1990 HEPATITIS B (1 of 3 - 3-dose series) HEPATITIS B (1 of 3 - 3-dose series) [facility] Start: 1990 Hepatitis B Vaccine (1 of 3 - 3-dose series) Hepatitis B Vaccine (1 of 3 - 3-dose series) [facility] End: 06-23-2024 Alanine aminotransferase [Enzymatic activity/volume] in Serum or Plasma ALANINE AMINOTRANSFERASE / SGPT Lab Routine Chronic tophaceous gout Encounter for long-term (current) use of medications Every 3 months for 5 Occurrences starting 06/24/2023 until 06/23/2024 [facility] Comment on above: Every 3 months for 5 Occurrences startin g 06/24/2023 until 06/23/2024 End: 06-23-2024 Albumin [Mass/volume] in Serum or Plasma ALBUMIN Lab Routine Chronic tophaceous gout Encounter for long-term (current) use of medications Every 3 months for 5 Occurrences starting 06/24/2023 until 06/23/2024 [facility] Comment on above: Every 3 months for 5 Occurrences startin g 06/24/2023 until 06/23/2024 End: 06-23-2024 Aspartate aminotransferase [Enzymatic activity/volume] in Serum or Plasma ASPARTATE AMINOTRANSFERASE/SGOT Lab Routine Chronic tophaceous gout Encounter for long-term (current) use of medications Every 3 months for 5 Occurrences starting 06/24/2023 until 06/23/2024 [facility] Work Phone: Comment on above: Every 3 months for 5 Occurrences startin g 06/24/2023 until 06/23/2024 End: 06-23-2024 C reactive protein [Mass/volume] in Serum or Plasma C-REACTIVE PROTEIN Lab Routine Chronic tophaceous gout Encounter for long-term (current) use of medications Every 3 months for 5 Occurrences starting 06/24/2023 until 06/23/2024 [facility] Comment on above: Every 3 months for 5 Occurrences startin g 06/24/2023 until 06/23/2024 End: 06-23-2024 CBC W Auto Differential panel - Blood COMPLETE BLOOD COUNT AND DIFFERENTIAL Lab Routine Chronic tophaceous gout Encounter for long-term (current) use of medications Every 3 months for 5 Occurrences starting 06/24/2023 until 06/23/2024 [facility] Comment on above: Every 3 months for 5 Occurrences startin g 06/24/2023 until 06/23/2024 End: 06-23-2024 CREATININE BLD CREATININE BLD Lab Routine Chronic tophaceous gout Encounter for long-term (current) use of medications Every 3 months for 5 Occurrences starting 06/24/2023 until 06/23/2024 [facility] Comment on above: Every 3 months for 5 Occurrences startin g 06/24/2023 until 06/23/2024 End: 06-23-2024 Erythrocyte sedimentation rate SEDIMENTATION RATE, WESTERGREN Lab Routine Chronic tophaceous gout Encounter for long-term (current) use of medications Every 3 months for 5 Occurrences starting 06/24/2023 until 06/23/2024 [facility] Comment on above: Every 3 months for 5 Occurrences startin g 06/24/2023 until 06/23/2024 Patient Education [facility] Work Phone: Patient referral [facility] Work Phone: End: 06-23-2024 Urate [Mass/volume] in Serum or Plasma URIC ACID Lab Routine Chronic tophaceous gout Encounter for long-term (current) use of medications Every 6 months for 3 Occurrences starting 06/24/2023 until 06/23/2024 [facility] Comment on above: Every 6 months for 3 Occurrences startin g 06/24/2023 until 06/23/2024 End: 02-02-2025 XR Foot - bilateral AP and Lateral and oblique XR FOOT GENERAL 3V AP/LAT/OBL BILATERAL Radiology Routine Chronic tophaceous gout Encounter for long-term (current) use of medications 1 Occurrences starting 01/04/2024 until 02/02/2025 [facility] Work Phone: Comment on above: 1 Occurrences starting 01/04/2024 until 02/02/2025 XR Foot - bilateral AP and Lateral and oblique XR FOOT GENERAL 3V AP/LAT/OBL BILATERAL Radiology Routine Chronic tophaceous gout Encounter for long-term (current) use of medications 01/04/2024 9:48 AM EST [facility] Immunizations Immunization Date Immunization Notes Care Provider [facility] 10-13-2018 influenza virus vacc ine, unspecified formulation Delmy Boyle MD Work Phone: [facility] 10-13-2002 measles, mumps and rubella virus vaccine Leydi Aceves MD Work Phone: [facility] 10-20-1993 diphtheria, tetanus toxoids and acellular pertussis vaccine, unspecified formulation Leydi Aceves MD Work Phone: [facility] 10-20-1993 haemophilus influenz ae type b vaccine, conjugate unspecified formulation Leydi Aceves MD Work Phone: [facility] 10-20-1993 trivalent poliovirus vaccine, live, oral Leydi Aceves MD Work Phone: [facility] 07-26-1991 diphtheria, tetanus toxoids and pertussis vaccine Leydi Aceves MD Work Phone: [facility] 07-26-1991 haemophilus influenz ae type b vaccine, conjugate unspecified formulation Leydi Aceves MD Work Phone: [facility] 07-26-1991 measles, mumps and rubella virus vaccine Leydi Aceves MD Work Phone: [facility] 02-03-1991 diphtheria, tetanus toxoids and pertussis vaccine Leydi Aceves MD Work Phone: [facility] 02-03-1991 haemophilus influenz ae type b vaccine, conjugate unspecified formulation Leydi Aceves MD Work Phone: [facility] 02-03-1991 trivalent poliovirus vaccine, live, oral Leydi Aceves MD Work Phone: [facility] 1990 diphtheria, tetanus toxoids and pertussis vaccine Leydi Aceves MD Work Phone: [facility] 1990 haemophilus influenz ae type b vaccine, conjugate unspecified formulation Leydi Aceves MD Work Phone: [facility] 1990 trivalent poliovirus vaccine, live, oral Leydi Aceves MD Work Phone: [facility] Payers Date Payer Category Payer Self-pay 2022 Private Health Insurance [facility] MEDICAID [id number] 2021 Medicaid [facility] MEDICAID [id number] 2021-Present [phone] [address] [place] [address] Medicaid [id number] 2021 Medicaid [id number] 2018 Unknown [id number] 1990 Unknown [id number] 2.16.840.1.058812.3.579.2. 173 1990 Unknown [id number] 2.16.840.1.514218.3.579.2. 593 1990 Unknown [id number] 2.16.840.1.992188.3.579.2. 593 1990 Unknown [id number] 2.16.840.1.041566.3.579.2. 593 1990 Unknown [id number] 2.16.840.1.987638.3.579.2. 593 1990 Unknown [id number] 2.16.840.1.173060.3.579.2. 593 1990 Unknown [id number] 2.16.840.1.437752.3.579.2. 593 1990 Unknown [id number] 2.16.840.1.774703.3.579.2. 593 1990 Unknown [id number] 2.16.840.1.514074.3.579.2. 593 1990 Unknown [id number] 2.16.840.1.248045.3.579.2. 593 1990 Unknown [id number] 2.16.840.1.934479.3.579.2. 593 1990 Unknown [id number] 2.16.840.1.349207.3.579.2. 727 1990 Unknown [id number] 2.16.840.1.695135.3.579.2. 1259 1990 Unknown [id number] 2.16.840.1.548631.3.579.2. 1259 1990 Unknown [id number] 2.16.840.1.576477.3.579.2. 1259 1990 Unknown [id number] 2.16.840.1.120740.3.579.2. 1259 1990 Unknown [id number] 2.16.840.1.843849.3.579.2. 1259 1959 Medicaid [id number] [id number] [facility] [id number] Unknown [id number] 2.16.840.1.255163.3.579.2. 531 Unknown [id number] 2.16.840.1.713778.3.579.2. 531 Social History Date Type Detail Facility Start: 05-04-2017 End: 01-01-2022 Tobacco smoking status WYIS Never smoked tobacco [facility] Start: 05-04-2017 End: 05-03-2023 Tobacco use and exposure User of smokeless tobacco [facility] History of tobacco use Chews Tobacco [facility] Start: 1990 Sex Assigned At Male [facility] Start: 12-08-2021 Tobacco smoking status WYIS Smoker (finding) [facility] Start: 12-22-2021 End: 01-01-2022 Exposure to SARS-CoV-2 (event) Not sure [facility] Start: 08-14-2022 End: 10-10-2023 History of Social function [facility] Start: 08-14-2022 End: 10-10-2023 Tobacco use panel [facility] Adult Depression Screening Assessment 4 [facility] Start: 11-09-2019 Gender identity Identifies as male gender (finding) [facility] Start: 11-09-2019 Sexual orientation Heterosexual (finding) [facility] Start: 09-14-2022 Tobacco use and exposure Smokeless tobacco non-user [facility] Start: 02-16-2023 End: 10-11-2023 Alcohol intake Current drinker of alcohol (finding) [facility] Within the last year , have you been afraid of your partner or ex-partner? No [facility] Do you belong to any clubs or organizations such as latter day groups, unions, fraEmerging Tigers or athletic groups, or school groups? Yes [...] 1-2 cups per day soda/pop [facility] Start: 05-03-2023 Tobacco smoking status NHIS Smokes tobacco daily [facility] Are you now , , , , never or living with a partner? [facility] How often to you hav e a drink containing alcohol? Monthly or less [facility] How often do you hav e 6 or more drinks on 1 occasion? Never [facility] (I/We) worried wheth er (my/our) food would run out before (I/we) got money to buy more. Sometimes true [facility] Start: 05-03-2023 Alcohol Comment 2 or 3 drinks in one sitting. Maybe two or three times per w [facility] Goals Date Patient Goal Desired Activity /State Functional Status Date Assessment Result Facility 12-10-2021 Functional status Patient at [facility] Work Phone: 12-07-2021 Functional status Disability Sta tus Patient at [facility] Work Phone: Mental Status Date Assessment Result Facility 12-10-2021 Cognitive function Cognitive Sta tus Patient at [facility] Work Phone: Clinical Notes 04-25-2017 to 01-07-2024 Telephone Encounter - ISIS Vera - 01/07/2024 8:35 AM ESTTelephone Encounter - ISIS Vera - 01/07/2024 8:35 AM ESTTelephone Encounter - Camilla Holt LPN - 01/04/2024 1:22 PM EST Note Date & Type Note Facility 01-07-2024 Telephone encounter Note OARRS reviewed, Rx sent into patient's pharmacy. [facility] 01-07-2024 Miscellaneous Notes OARRS reviewed, Rx sent into patient's pharmacy. 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 Toolroom Machinist: DAELA Transcribe Date/Time: Jan 04 2024 10:13A Dictated by : UMA ROGERS MD This examination was interpreted and the report reviewed and electronically signed by: CHELSEA REEVES MD on Jan 04 2024 3:12PM EST [facility] 01-04-2024 Telephone encounter Note FYI- Insurance wants him to try generic Lidocaine patches for 30 days first. Please see below outcome. [facility] 01-04-2024 Miscellaneous Notes FYI- Insurance wants him to try generic Lidocaine patches for 30 days first. Please see below outcome. Nick Wray ([place]unoz: [id number]) [facility] Rx #: [id number] Need Help? Call us at Outcome Denied today by [place] Medicaid 2017 Coverage is provided when the member has met the step therapy requirement for this medication. Step therapy is a type of prior authorization (approval by your plan) that requires that you try one or more preferred drugs before you are approved for the drug requested. The requested medication requires the member to have a history of at least 30 days of therapy with generic Lidocaine patch. The [facility] Policy for Medical Necessity as posted on the [facility] website and [facility] Preferred Drug List criteria were reviewed and per [place] Administrative Code Rule 5160-1-01 (C) and (B), a medically necessary service must include: generally accepted standards of medical practice, be clinically appropriate in administration, treatment and outcome and be the lowest cost alternative to effectively treat the condition. Please contact your provider to assist you with other treatment options that might be covered under your benefit package, or other services that might be available through the community. Drug ZTlido 1.8% patches [facility] cloud logo Form [place] Medicaid [employer] Electronic PA Form (2016 NVPDP) Original Claim Info 75 documented in this encounter [facility] 01-04-2024 Telephone encounter Note Nick Wray (Munoz: [id number]) [facility] Rx #: [id number] Need Help? Call us at Outcome Denied today by [place] Medicaid 2017 Coverage is provided when the member has met the step therapy requirement for this medication. Step therapy is a type of prior authorization (approval by your plan) that requires that you try one or more preferred drugs before you are approved for the drug requested. The requested medication requires the member to have a history of at least 30 days of therapy with generic Lidocaine patch. The [employer] [place] Policy for Medical Necessity as posted on the [facility] website and [place] [employer] Preferred Drug List criteria were reviewed and per [place] Administrative Code Rule 5160-1-01 (C) and (B), a medically necessary service must include: generally accepted standards of medical practice, be clinically appropriate in administration, treatment and outcome and be the lowest cost alternative to effectively treat the condition. Please contact your provider to assist you with other treatment options that might be covered under your benefit package, or other services that might be available through the community. Drug ZTlido 1.8% patches [facility] [employer] logo Form [place] Medicaid [employer] Electronic PA Form (2017 [facility]) Original Claim Info 75 [facility] 01-04-2024 History of Present illness Narrative Radiology Service Progress Note PATIENT NAME: Nick Wray DATE OF SERVICE: January 04, 2024 TIME: 9:41 AM PATIENT IDENTITY VERIFICATION COMPLETED USING TWO [...] PATIENT RELEVANT IMPLANT DATA REVIEWED: Not Applicable PATIENT PRESENTS WITH AN IMPLANTABLE OR ATTACHED ADVERTISING SPECIALIST: No RADIOLOGY DEPARTMENT: General X-ray: Exam(s) Completed: Lower Extremity X-Ray(s): Knee, AP / Lat / Tunne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 Requested Prescriptions Signed Prescriptions Disp Refills colchicine 0.6 mg tablet 45 tablet 1 Sig: TAKE 1 TABLET BY MOUTH EVERY OTHER DAY Authorizing Provider: DELMY BOYLE MD * Telephone Encounter - Deidre Paz LPN - 04/01/2022 11:34 AM EST Most recent Rheumatology visit: 01/01/2022 (with Delmy Boyle) Recent Office Visits - This Specialty 01/01/2022 Idiopathic chronic gout of multiple sites with tophus Rheumatology Delmy Boyle MD 05/30/2021 Idiopathic chronic gout of multiple sites with tophus Rheumatology Delmy Boyle MD 11/29/2020 Chronic left shoulder pain Rheumatology Delmy Boyle MD Upcoming Rheumatology Appointments - Next 365 Days Visit Type Date Time Department [facility] 08/14/2022 11:40 AM [facility] CBC: None on file [...] (current) use of medications documented in this encounterSouthwest General Health Center11-03-2022 Instructions* Patient Instructions* Delmy Boyle MD - 01/01/2022 11:30 AM [...] questions at your visit. documented in this encounterSouthwest General Health Center11-03-2022 History of Present illness Narrative* Delmy Boyle MD - 01/01/2022 11:20 AM EDT Images from the original note were not [...] arthritic flares once every 4 months. [address] gal[address]ometer assembler [address]. Jaime in [place] who did diagnostic knee aspiration which according to patient was positive for uric acid crystals. Treated with steroids and continued allopurinol. He has not seen Dr. Jaime since 2014. In 2014, he was hospitalized in [place] for acute polyarthritis. Saw galvanometer assembler while in hospital who told him that he possibly had RA. Discharged on steroids. His PCP switched him from allopurinol to Uloric Jan 2017. He also takes colchicine prn. No reduction in frequency or severity of his joint flares with Uloric. In 2017, he has been hospitalized 7-8 times for acute joint flares. Each timehe is treated with steroids. Hospitalized at [facility] Apr 2017 for acute flare of [...] qam and 300 mg qpm.He was advised tohave uric acid drawn 4 weeks after increasing [...] shoulder surgery by Dr. Tc Coffey at [facility]. No post op complications. 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 Rheumatology Delmy Boyle MD 11/29/2020 Chronic left shoulder pain Rheumatology Delmy Boyle MD 08/19/2020 Idiopathic chronic gout of multiple sites with [facility] Rheumatology Delmy Boyle MD Upcoming Rheumatology Appointments - Next 365 Days Visit Type Date Time Department [facility] EXT 01/01/2022 11:20 AM [facility] RE[facility] CBC: None on file [...] Instance) Lab Orders None documented in this encounterSouthwest General Health Center10-12-2022 Discharge summary Author Nicola pelayo [facility] December 10, 2021 10:19am Note Date/Time December 10, 2021 1 0:19am [facility] [address] [place], [place] [id number] Discharge Summary Signed Patient: Nick Wray MR#: [id number] : 1990 Acct:[id number] Age/Sex: 31 / M Adm Date: 2 Loc: Room: [address] [place] [address]: Aadm Young MD Copies to: MD Adam Law [...] called EMS and he was taken to [facility] and subsequently brought here.? He [...] No activity restrictions. 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 (insert date/time here) Intake: (Insert date/time here) Please bring a copy of your photo ID, insurance card, and proof of household income.? Psychiatry: (Insert date/time here) Group: (Insert date/time here ) ) Documented By: Nicola Leyva MD 2 1016 Signed By: <Electronically signed by Nicola Leyva MD> 12/10/21 1018 [facility] Work Phone: 1(287) 835-597710-11-2022 Progress note Author Nicola pelayo [facility] December 09, 2021 10:42am Note Date/Time December 09, 2021 8 :48am [facility] [address] [place] [address] Psychiatry Progress Note Signed Patient: Nick Wray MR#: [id number] : 1990 Acct:[id number] Age/Sex: 31 / M Adm Date: 2 Loc: Room: [address] [place] [address] Type : ADM IN Attending Dr: Adam [...] He rates his depression 10 and anxiety /10. Says he is mostly [...] signed by Nicola Leyva MD> 12/09/21 1042 [facility] Work Phone: 1(492) 479-620410-10-2022 History and physical note Author Nicola pelayo [facility] December 08, 2021 1:32pm Note Date/Time December 08, 2021 1 2:43pm [facility] [address] [place] [address] Psychiatry H&P Signed Patient: Nick Wray MR#: [id number] : 1990 Acct:[id number] Age/Sex: 31 / M Adm Date: 2 Loc: Room: [address] [place] [address] Type: ADM IN Attending Dr: Adam Young MD Copies to: MD Adam Law MD Waleanne Nichols DO, RES Leydi Aceves MD~ Date of [...] called EMS and he was taken to [facility] and subsequently brought here. 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 Review of symptoms: Constitutional: Denies chills and [...] History (Updated 12/08/21 @ 04:15 by Margaret Land, DELMIS) H/O shoulder surgery left side Family History [...] signed by Nicola Leyva MD> 12/08/21 1332 [facility] Work Phone: 1(559) 211-529402-25-2018 History of Past illness Narrative* Problem Noted Date Resolved Date Rheumatoid arthritis flare 04/25/201705/10 documented as of this encounter (statuses as of 08/05/2021) [facility] of [facility] Narrative* Problem Noted Date Resolved Date Rheumatoid arthritis flare 04/25/201705/10 documented as of this encounter (statuses as of 12/22/2021) [address]25-2018 History of Past illness Narrative* Problem Noted Date Resolved Date Rheumatoid arthritis flare 04/25/201705/10 documented as of this encounter (statuses as of 01/01/2022) [address]25-2018 History of Past illness Narrative* Problem Noted Date Resolved Date Rheumatoid arthritis flare 04/25/201705/10 documented as of this encounter (statuses as of 04/02/2022) [address]25-2018 History of Past illness Narrative* Problem Noted Date Resolved Date Rheumatoid arthritis flare 04/25/201705/10 documented as of this encounter (statuses as of 06/30/2022) [address]25-2018 History of Past illness Narrative* Problem Noted Date Diagnosed Date Resolved Date Rheumatoid arthritis flare 04/25/2017 0 05/10/2017 documented as of this encounter (statuses as of 11/14/2022) [address]25[address]2018 History of Past illness Narrative* Problem Noted Date Diagnosed Date Resolved Date Rheumatoid arthritis flare 04/25/2017 0 05/10/2017 documented as of this encounter (statuses as of 11/14/2022) [facility] note* Diagnosis 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) documented in this encounter [facility] [place] noteNo assessment information availableC[facility] Work Phone: evaluation note* Diagnosis Onset Date Resolution Status Major depressive disorder, recurrent, moderate acute [facility] Work Phone: evaluation note* Diagnosis 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) documented [facility] [place] [facility]* Diagnosis Idiopathic chronic gout of multiple sites with tophus- Primary Chronic gouty arthropathy with tophus (tophi) Encounter for long-term (current) use of medications Encounter for long-term (current) use of other medications Stage 3 chronic kidney disease, unspecified whether stage 3a or 3b CKD (HCC) documented in this encounter [facility]Eval[facility] [place] [facility]* Diagnosis 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) documented [facility] [place] [facility]* Diagnosis 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) documented in this encounter [facility] [place] [facility]* Diagnosis Other chronic pain- Primary documented in this encounter [facility] note* Diagnosis Chronic tophaceous gout- Primary Chronic gouty arthropathy with tophus (tophi) Encounter for long-term (current) use of medications Encounter for long-term (current) use of other medications Stage 3 chronic kidney disease, unspecified whether stage 3a or 3b CKD (HCC) 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) [facility] [place] [facility]* Diagnosis 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) documented in this encounter [facility] [place] [facility]* Diagnosis 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) [facility]* Diagnosis Onset Date Resolution Status Acute pansinusitis acute [facility] Work Phone: Evaluation note* Diagnosis Anxiety Anxiety state, unspecified documented in this encounter [facility]* Diagnosis Anxiety- Primary Anxiety state, unspecified Other chronic pain Adjustment disorder with depressed mood (CMS/HCC) Adjustment disorder with depressed mood Essential hypertension (CMS/HCC) Unspecified essential hypertension Anxiety- Primary Anxiety state, unspecified Adjustment disorder with depressed mood (CMS/HCC) Adjustment disorder with depressed mood Anxiety- Primary Anxiety state, unspecified Accidental overdose, initial encounter Stage 3a chronic kidney disease (HCC) (CMS/HCC) 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) COVID-19 virus infection- Primary Idiopathic chronic gout of multiple sites with tophus Stage 3a chronic kidney disease (HCC) (CMS/HCC) Essential hypertension (CMS/HCC) Unspecified essential hypertension Immunodeficiency, unspecified (CMS/HCC) 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) Anxiety Anxiety state, unspecified 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) documented in this encounter [facility]* 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 Encounter for long-term (current) use of medications Encounter for long-term (current) use of other medications documented in this encounter [facility]* Diagnosis Anxiety- Primary Anxiety state, unspecified Other chronic pain Adjustment disorder with depressed mood (CMS/HCC) Adjustment disorder with depressed mood Essential hypertension (CMS/HCC) Unspecified essential hypertension Anxiety- Primary Anxiety state, unspecified Adjustment disorder with depressed mood (CMS/HCC) Adjustment disorder with depressed mood Anxiety- Primary Anxiety state, unspecified Accidental overdose, initial encounter Stage 3a chronic kidney disease (HCC) (CMS/HCC) 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) COVID-19 virus infection- Primary Idiopathic chronic gout of multiple sites with tophus Stage 3a chronic kidney disease (HCC) (CMS/HCC) Essential hypertension (CMS/HCC) Unspecified essential hypertension Immunodeficiency, unspecified (CMS/HCC) 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) Anxiety Anxiety state, unspecified 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) documented in this encounter [facility] Discharge instructions Additional Instructions Rest Apply ice to affected area Avoid electronics Follow-up with neurology on Wednesday Tylenol Motrin if needed for discomfort Return here if you develop any numbness, tingling, unilateral weakness, unsteady gait, confusion or any other concernsC[facility] Work Phone: Hospital Discharge instructions Additional Instructions Regular diet. No activity restrictions.[facility] Work Phone: Reason for referral (narrative)* Diagnostic Procedure Only (Routine) - Closed Specialty Diagnoses / Procedures Referred By Contac t Referred To Contact XR IMAGING Diagnoses Chronic tophaceous gout Encounter for long-term (current) use of medications Procedures XR FOOT GENERAL 3V AP/LAT/OBL BILATERAL RADEX FOOT COMPLETE [place]IM[place] [address] [place] [address] [place] [address] [place] [address] Referral ID Status Reason Start Date Expiration Date V isits Requested Visits Authorized [id number] Closed Auto-Generate d Referral 01/04/2024 02/02/2025 1 1 * Diagnostic Procedure Only (Routine) - Closed Specialty Diagnoses / Procedures Referred By Contac t Referred To Contact XR IMAGING Diagnoses 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 Procedures XR KNEE GENERAL 4V AP BOTH/PA BOTH/LAT/MERC BILATERAL RADIOLOGIC EXAM KNEE COMPLETE 4/[place] [address] [place] [address] [place] [address] Referral ID Status Reason Start Date Expiration Date V isits Requested Visits Authorized [id number] Closed Auto-Generate d Referral 01/04/2024 02/02/2025 1 1 [facility] Summary Purpose Family History Relationship Condition Age at Onset Recorded Date/T vish father Hypertension Unknown Ingrown nail Unknown Not Specified Hypertension Unknown brother Hypertension Unknown sister Hypertension Unknown Depression Unknown family member Gout Unknown Suicide Unknown Advance Directives Documents on File Type Date Recorded 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 Advance Directive(s) 04/25/2017 12:32 PM Advance Directive Response Recorded Date/ Time Advance Directives No September 27 7:04pm Chief Complaint and Reason for Visit Chief Complaint sent by [facility]/blurry vision/head swell Chief Complaint sent by [facility]/blurry vision/head swell Major Depression Reason for Visit Major depressive dis order, recurrent, moderate Chief Complaint BH eye irritation, runny nose, sore throat Reason for Visit Acute pansinusitis Reason for Referral Specialty Diagnoses / Procedures Referred By Contac t Referred To Contact Diagnoses Stage 3 chronic kidney disease, unspecified whether stage 3a or 3b CKD (HCC) Other secondary osteoarthritis of multiple [place] [id number] [place] [id number] Referral ID Status Reason Start Date Expiration Date Visits Re quested Visits Authorized [id number] Closed 01/04/2024 03/04/2024 1 1 Specialty Diagnoses / Procedures Referred By Contac t Referred To Contact XR IMAGING Diagnoses 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 Procedures XR KNEE GENERAL 4V AP BOTH/PA BOTH/LAT/MERC BILATERAL RADIOLOGIC EXAM KNEE COMPLETE 4/MORE VIEWS Delmy Boyle MD [address] [place] [address] [place] [address] Referral ID Status Reason Start Date Expiration Date V isits Requested Visits Authorized [id number] Closed Auto-Generate d Referral 01/04/2024 02/02/2025 1 1 Specialty Diagnoses / Procedures Referred By Contac t Referred To Contact Orthopedics Diagnoses Other secondary osteoarthritis of multiple sites Procedures CONSULT TO ORTHOPAEDICS OFFICE/OUTPATIENT [facility] 60 MINUTES Delmy Boyle MD [address] [place] [address] Referral ID Status Reason Start Date Expiration Date Visits Requested Visits Authorized [id number] Authorized PCP Requested Referral 01/04/2024 04/03/2024 1 1 Specialty Diagnoses / Procedures Referred By Contac t Referred To Contact XR IMAGING Diagnoses Chronic tophaceous gout Encounter for long-term (current) use of medications Procedures XR FOOT GENERAL 3V AP/LAT/OBL BILATERAL RADEX FOOT COMPLETE MINIMUM 3 [place] [address] [place] [address] [place] [address] Referral ID Status Reason Start Date Expiration Date V isits Requested Visits Authorized [id number] Closed Auto-Generate d Referral 01/04/2024 02/02/2025 1 1 Additional Source Comments (unrecognized sect ion and content) No Status Records FoundNo Status Records FoundNo Status Records FoundNo Status Records FoundNo Status Records FoundNo Status Records FoundNo Status Records FoundNo Status Records FoundNo Status Records Found INFORMATION SOURCE (unrecogn ized section and content) DATE CREATED AUTHOR 07/23/2018 [facility] DATE CREATED AUTHOR AUTHOR'S ORGANIZ ATION 11/11/2021 [facility] dical Specialist DATE CREATED AUTHOR AUTHOR'S ORGANIZ ATION 08/07/2022 [facility] DATE CREATED AUTHOR AUTHOR'S ORGANIZ ATION 2023 [facility] DATE CREATED AUTHOR AUTHOR'S ORGANIZ ATION 02/26/2023 [facility] DATE CREATED AUTHOR AUTHOR'S ORGANIZ ATION 09/13/2023 [facility] DATE CREATED AUTHOR AUTHOR'S ORGANIZ ATION 10/12/2023 [facility] dical Specialists EPIC DATE CREATED AUTHOR AUTHOR'S ORGANIZ ATION 01/05/2024 [facility] DATE CREATED AUTHOR AUTHOR'S ORGANIZ ATION 01/08/2024 [facility] Source Comments (unrecognize d section and content) In the event this informatio n is protected by the Federal Confidentiality of Alcohol and Drug Abuse Patient Records regulations: The Federal rules restrict any use of the information to criminally investigate or prosecute any alcohol or drug abuse patient.[facility] the event this information is protected by the Federal Confidentiality of Alcohol and Drug Abuse Patient Records regulations: The Federal rules restrict any use of the information to criminally investigate or prosecute any alcohol or drug abuse patient.[facility] Center[facility] the event this information is protected by the Federal Confidentiality of Alcohol and Drug Abuse Patient Records regulations: The Federal rules restrict any use of the information to criminally investigate or prosecute any alcohol or drug abuse patient.[facility] Center[facility] the event this information is protected by the Federal Confidentiality of Alcohol and Drug Abuse Patient Records regulations: The Federal rules restrict any use of the information to criminally investigate or prosecute any alcohol or drug abuse patient.[facility] Center[facility] the event this information is protected by the Federal Confidentiality of Alcohol and Drug Abuse Patient Records regulations: The Federal rules restrict any use of the information to criminally investigate or prosecute any alcohol or drug abuse patient.[facility] Center[facility] the event this information is protected by the Federal Confidentiality of Alcohol and Drug Abuse Patient Records regulations: The Federal rules restrict any use of the information to criminally investigate or prosecute any alcohol or drug abuse patient.[facility] Center[facility] the event this information is protected by the Federal Confidentiality of Alcohol and Drug Abuse Patient Records regulations: The Federal rules restrict any use of the information to criminally investigate or prosecute any alcohol or drug abuse patient.[facility] Center[facility] the event this information is protected by the Federal Confidentiality of Alcohol and Drug Abuse Patient Records regulations: The Federal rules restrict any use of the information to criminally investigate or prosecute any alcohol or drug abuse patient.[facility] Center[facility] the event this information is protected by the Federal Confidentiality of Alcohol and Drug Abuse Patient Records regulations: The Federal rules restrict any use of the information to criminally investigate or prosecute any alcohol or drug abuse patient.[facility] CenterIn the event this information is protected by the Federal Confidentiality of Alcohol and Drug Abuse Patient Records regulations: The Federal rules restrict any use of the information to criminally investigate or prosecute any alcohol or drug abuse patient.[facility] Center[facility] the event this information is protected by the Federal Confidentiality of Alcohol and Drug Abuse Patient Records regulations: The Federal rules restrict any use of the information to criminally investigate or prosecute any alcohol or drug abuse patient.[facility] CenterIn the event this information is protected by the Federal Confidentiality of Alcohol and Drug Abuse Patient Records regulations: The Federal rules restrict any use of the information to criminally investigate or prosecute any alcohol or drug abuse patient.[facility] Center[facility] the event this information is protected by the Federal Confidentiality of Alcohol and Drug Abuse Patient Records regulations: The Federal rules restrict any use of the information to criminally investigate or prosecute any alcohol or drug abuse patient.[facility] CenterIn the event this information is protected by the Federal Confidentiality of Alcohol and Drug Abuse Patient Records regulations: The Federal rules restrict any use of the information to criminally investigate or prosecute any alcohol or drug abuse patient.[facility] CenterIn the event this information is protected by the Federal Confidentiality of Alcohol and Drug Abuse Patient Records regulations: The Federal rules restrict any use of the information to criminally investigate or prosecute any alcohol or drug abuse patient.[facility] Care Teams (unrecognized sec tion and [...] August 22, 2023 End: August 22, 2023 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 Relationship Specialty Start Date End Date Leydi Aceves PCP - General Family Practice 01/07/15 Team Status: Inactive Member Role Status Dates Leydi Aceves MD Primary Care Provider Active Juvenal Smith MD Emergency Provider Active Team Status: Inactive Member Role Status Dates Leydi Aceves MD Primary Care Provider Active Adam Young MD Admit Provider, Attending Provider Active 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 Relationship Specialty Start Date End Date Be Aceveschago Bobbycris PCP - General Family Medicine 01/07/15 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 Relationship Specialty Start Date End Date KetanLeydi redding Bobbycris PCP - General Family Medicine 01/07/15 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 Relationship Specialty Start Date End Date Ketan Leydi Temple PCP - General Family Medicine 01/07/15 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 Relationship Specialty Start Date End Date EustaceLeydi redding PCP - General Family Medicine 01/07/15 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 Relationship Specialty Start Date End Date Leydi Aceves MD PCP - General Family Medicine 01/07/15 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 Relationship Specialty Start Date End Date Leydi Aceves MD PCP - General Family Medicine 01/07/15 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 Relationship Specialty Start Date End Date Leydi Aceves MD [address] [place] [address] PCP - General Family Medicine 07/29/22 Leydi Aceves MD [address] [place] [address] PCP - [facility] 05/30/22 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 Relationship Specialty Start Date End Date Leydi Aceves MD [address] [place] [address] PCP - General Family Medicine 07/29/22 Leydi Aceves MD [address] [place] [address] PCP - [facility] 05/30/22 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 Relationship Specialty Start Date End Date Leydi Aceves MD PCP - General Family Medicine 01/07/15 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 Relationship Specialty Start Date End Date Leydi Aceves MD PCP - General Family Medicine 01/07/15 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 Relationship Specialty Start Date End Date Leydi Aceves MD PCP - General Family Medicine 01/07/15 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 Relationship Specialty Start Date End Date Leydi Aceves MD [address] [place] [address] PCP - General Family Medicine 07/29/22 Leydi Aceves MD [address] [place] [address] PCP - [facility] 05/30/22Wednesday, BREE Marquez [address] [place] [address] Licensed Practical Nurse Family Medicine 06/04/23 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 Relationship Specialty Start Date End Date Leydi Aceves MD [address] [place] [address] PCP - General Family Medicine 07/29/22 Leydi Aceves MD [address] [place] [address] PCP - [facility] 05/30/22Wednesday, Alma, THRASHER FEEDER [address] [place] [address] Licensed Practical Nurse Family Medicine 06/04/23 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 Relationship Specialty Start Date End Date Leydi Aceves MD [address] [place] [address] PCP - General Family Medicine 07/29/22 Leydi Aceves MD [address] [place] [address] PCP - [facility] 05/30/22Wednesday, Alma, THRASHER FEEDER [address] [place] [address] Licensed Practical Nurse Family Medicine 06/04/23 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 Relationship Specialty Start Date End Date Leydi Aceves MD PCP - General Family Medicine 01/07/15 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 Relationship Specialty Start Date End Date Leydi Aceves MD PCP - General Family Medicine 01/07/15 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 Relationship Specialty Start Date End Date Leydi Aceves MD PCP - General Family Medicine 01/07/15 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 Relationship Specialty Start Date End Date Leydi Aceves MD [address] [place] [address] PCP - General Family Medicine 07/29/22 Leydi Aceves MD [address] [place] [address] PCP - [facility] 05/30/22Wednesday, MILES MarquezN [address] [place] [address] Licensed Practical Nurse Family Medicine 06/04/23 Goals (unrecognized section and content) Goals may [...] Reason Onset Date Comments Refill Request 08/16/2023 Reason Onset Date Comments Med Refill 12/07/2023 Reason Onset Date Comments Med Refill 12/10/2023 Reason Comments Gout Follow up Reason Comments Radio Gen RMP Specialty Diagnoses / Procedures Referred By Contac t Referred To Contact XR IMAGING Diagnoses 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 [facility] [employer] [facility]. provides no warranty or guarantee of the accuracy or completeness of information in this document.
[2024-01-11] MEDS: DEXAMETHASONE SOD PHOS 10 MG/ML VIAL IV (09:24)
[2024-01-11] MEDS: HYDROMORPHONE HCL 0.5 MG/0.5 ML SYRINGE IV (09:25)
[2024-01-11 09:29] LABS: Basophils Percent Auto 0.1 % (0.2-2.0); Eosinophils Percent Auto 0.1 % (0.9-7.0); Hemoglobin 13.8 g/dL (14.0-18.0); Immature Granulocytes Abs Auto 0.05 10^3/uL (0.00-0.03); Immature Granulocytes Pct Auto 0.4 % (0.0-0.5); Lymphocytes Absolute Auto 0.8 10^3/uL (1.2-3.8); Lymphocytes Percent Auto 5.5 % (20.5-60.0); Mean Corpuscular HGB Conc 33.7 g/dL (29.9-35.2); Mean Corpuscular Hemoglobin 29.6 pg (25.9-34.0); Mean Corpuscular Volume 87.8 fL (80.0-94.0); Mean Platelet Volume 10.8 fL (9.5-13.5); Monocytes Absolute Auto 1.1 10^3/uL (0.3-0.8); Monocytes Percent Auto 7.6 % (1.7-12.0); Neutrophils Absolute Auto 12.3 10^3/uL (1.4-6.5); Neutrophils Percent Auto 86.3 % (43.0-75.0); Platelet Count 239 10^3/uL (150-450); Red Blood Count 4.67 10^6/uL (4.70-6.10); White Blood Count 14.3 10^3/uL (4.0-11.0)
[2024-01-11 09:51] LABS: Alanine Aminotransferase 27 U/L (16-63); Albumin Globulin Ratio 0.9; Albumin Level 3.5 g/dL (3.4-5.0); Alkaline Phosphatase 84 U/L (46-116); Anion Gap 23.2; Aspartate Amino Transferase 20 U/L (15-37); BUN Creatinine Ratio 6.2; Bilirubin Total 1.2 mg/dL (0.2-1.0); Calcium 9.1 mg/dL (8.5-10.1); Carbon Dioxide 20.7 mmol/L (21.0-32.0); Chloride 98 mmol/L (98-107); Estimated GFR (African America >60 (>=60 mL/min/1.73m^2); Estimated GFR (Non-African Ame 56 (>=60 mL/min/1.73m^2); Globulin 3.8 g/dL; Glucose 127 mg/dL (74-106); Potassium 3.9 mmol/L (3.5-5.1); Sodium 138 mmol/L (136-145); Total Protein 7.3 g/dL (6.4-8.2)
--- NOTE | 2024-01-11 10:46 | ED.GENADUL1 ---
HPI HPI - General Adult General Chief complaint: Weakness Stated complaint: GENERAL WEAKNESS Time Seen by Provider: 01/11/24 08:44 Source: patient Mode of arrival: Wheelchair Limitations: no limitations History of Present Illness HPI narrative: Patient presents to ER complaining of generalized weakness. He also complains of generalized pain. He states he has a history of rheumatoid arthritis and he reports that he is in a flare right now. He said he is having trouble with his right arm the shoulder elbow and wrist hurt. 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 He denies any fever or trauma. He does have a physician that manages his rheumatoid. They did offer to do some IV infusions outpatient but he states he would have to drive to [facility] multiple times a week. He is not currently on steroids for his rheumatoid and he does take gabapentin. He has tramadol at home for pain but states that is not been working enough for the pain. He states every once a while he needs to be admitted for this and he feels like he is at that point. Vital sign stable no fever. No signs of cellulitis. Related Data Home Medications ?Medication ?Instructions ?Recorded ?Confirmed amlodipine 10 mg tablet 10 mg PO QDAY 08/31/22 01/11/24 celecoxib 100 mg capsule 100 mg PO DAILY PRN RA flare 08/31/22 07/03/23 clonidine HCl 0.1 mg tablet 0.1 mg PO BID 08/31/22 01/11/24 colchicine 0.6 mg tablet 0.6 mg PO .every other 08/31/22 01/11/24 quetiapine 50 mg tablet See Rx Instructions PO .hs 08/31/22 10/08/23 tramadol 50 mg tablet 50 mg PO Q12H PRN pain 08/31/22 01/11/24 gabapentin 300 mg capsule 300 mg PO TID 02/15/23 01/11/24 (Neurontin) allopurinol 100 mg tablet 400 mg PO .QD 06/03/23 01/11/24 allopurinol 300 mg tablet 350 mg PO .evening 06/03/23 01/11/24 trazodone 50 mg tablet 50 mg PO BEDTIME PRN sleep 01/11/24 01/11/24 Previous Rx's ?Medication ?Instructions ?Recorded methylprednisolone 4 mg tablets in 4 mg PO DAILY #21 ea 01/11/24 a dose pack (Medrol (Jamal)) oxycodone-acetaminophen 5 mg-325 1 tab PO Q6H pain #14 tabs 01/11/24 mg tablet (Percocet) Allergies Allergy/AdvReac Type Severity Reaction Status Date / Time No Known Drug Allergies Allergy Verified 01/11/24 08:46 Opioid HPI Opioid Management Most Recent Opioid Data: Last Pain Scale 9 01/11/24 09:25 01/11/24 Last MAR Pain Assessment 01/11/24 09:25 Last ORT Total Score 10 06/03/23 01:22 06/03/23 Last ORT Risk Category High Risk 06/03/23 01:22 06/03/23 Ur Phencyclidine Scrn Negative (NEGATIVE) 06/02/23 22:15 06/02/23 Review of Systems ROS Status of ROS 10 or more systems reviewed and unremarkable except as noted in history and below PFSH PFSH Medical History Acute hypernatremia ?E87.0 - Hyperosmolality and hypernatremia (ICD-10) Altered mental status ?R41.82 - Altered mental status, unspecified (ICD-10) Sepsis ?A41.9 - Sepsis, unspecified organism (ICD-10) Acute kidney injury ?N17.9 - Acute kidney failure, unspecified (ICD-10) MONO (generalized anxiety disorder) ?F41.1 - Generalized anxiety disorder (ICD-10) Rheumatoid arthritis ?M06.9 - Rheumatoid arthritis, unspecified (ICD-10) Benign essential hypertension ?I10 - Essential (primary) hypertension (ICD-10) Gouty arthritis ?M10.9 - Gout, unspecified (ICD-10) Acute postoperative pain of knee ?G89.18 - Other acute postprocedural pain (ICD-10) ?M25.569 - Pain in unspecified knee (ICD-10) Visit for wound check ?Z51.89 - Encounter for other specified aftercare (ICD-10) Septic prepatellar bursitis of right knee ?M71.161 - Other infective bursitis, right knee (ICD-10) Acute viral syndrome ?B34.9 - Viral infection, unspecified (ICD-10) Diarrhea ?R19.7 - Diarrhea, unspecified (ICD-10) Rheumatoid arthritis flare ?M06.9 - Rheumatoid arthritis, unspecified (ICD-10) Polyarthralgia ?M25.50 - Pain in unspecified joint (ICD-10) Rheumatoid arthritis flare ?M06.9 - Rheumatoid arthritis, unspecified (ICD-10) Weakness ?R53.1 - Weakness (ICD-10) Mild shortness of breath ?R06.02 - Shortness of breath (ICD-10) Headache ?R51.9 - Headache, unspecified (ICD-10) Polyarthralgia ?M25.50 - Pain in unspecified joint (ICD-10) Flare of rheumatoid arthritis ?M06.9 - Rheumatoid arthritis, unspecified (ICD-10) Arthralgia ?M25.50 - Pain in unspecified joint (ICD-10) Drug-seeking behavior ?Z76.5 - Malingerer [conscious simulation] (ICD-10) Surgical History Total knee replacement status ?Z96.659 - Presence of unspecified artificial knee joint (ICD-10) H/O shoulder surgery ?Z98.890 - Other specified postprocedural states (ICD-10) Social History (Updated 04/20/23 @ 23:15 by April Sierra RN) Smoking status: Never smoker Nicotine containing products detail: chew tobacco Highest level of school completed/degree received: decline to answer Little interest or pleasure in doing things: not at all Feeling down, depressed, or hopeless: not at all Exam Narrative Exam Narrative: Time Seen: [] Vital Signs: [Per nurse's notes.] General: [Alert] Skin: [Warm, dry, no rash.] Head: [Normocephalic, atraumatic.] Neck: [Supple, trachea midline.] Eye: [Pupils are equal, round and reactive to light, extraocular movements are intact, normal conjunctiva.] Ears, nose, mouth and throat: oral mucosa moist. Cardiovascular: [Regular rate and rhythm, no murmur.] Respiratory: [Lungs are clear to auscultation, respirations are non-labored, breath sounds are equal.] Chest wall: [No tenderness, no deformity.] Gastrointestinal: [Soft, nontender, non distended, normal bowel sounds.] MSK: Generalized weakness x 4 extremities worse with the right upper extremity because he states there is so much pain when he tries to move it. He does have nodular joints consistent with chronic arthritis diffusely. No erythema no cellulitis Lymphatics: [No lymphadenopathy.] Psychiatric: [Cooperative, appropriate mood & affect.] Neurological: [Alert and oriented to person, place, time, and situation, no focal neurological deficit observed.] Constitutional Vital Signs, click to edit/add: Last Vital Signs Temp 98.3 F 01/11/24 08:43 Pulse 94 H 01/11/24 08:43 Resp 20 01/11/24 08:43 BP 127/89 01/11/24 08:43 Pulse Ox 99 01/11/24 08:43 O2 Del Method Room Air 01/11/24 08:43 Course Vital Signs Vital signs: Vital Signs Temperature 98.3 F 01/11/24 08:43 Pulse Rate 94 H 01/11/24 08:43 Respiratory Rate 20 01/11/24 08:43 Blood Pressure 127/89 01/11/24 08:43 Pulse Oximetry 99 01/11/24 08:43 Oxygen Delivery Method Room Air 01/11/24 08:43 Temperature 98.3 F 01/11/24 08:43 Pulse Rate 94 H 01/11/24 08:43 Respiratory Rate 20 01/11/24 08:43 Blood Pressure 127/89 01/11/24 08:43 Pulse Oximetry 99 01/11/24 08:43 Oxygen Delivery Method Room Air 01/11/24 08:43 Medical Decision Making MDM Narrative Medical decision making narrative: Patient's labs are nonacute. I spoke to the hospitalist doctor about possible admission and there really is not anything we can do for rheumatoid arthritis overnight. The patient feels a little bit better with pain medication here and I gave him a dose of steroids. He suggested that he contact his primary doctor and maybe reconsider outpatient infusions to keep his rheumatoid at bay. Patient states he will call his primary doctor. I will send him Percocet and a steroid taper to his pharmacy. Return to ED if worsening symptoms otherwise follow-up as outpatient. Patient is comfortable with care plan for home. Differential Diagnosis Differential Diagnosis: Rheumatoid arthritis, gout, cellulitis, infection Lab Data Lab results reviewed: Yes I reviewed the patient's lab results Labs: Lab Results 01/11/24 Range/Units 09:15 WBC 14.3 H (4.0-11.0) 10^3/uL RBC 4.67 L (4.70-6.10) 10^6/uL Hgb 13.8 L (14.0-18.0) g/dL Hct 41.0 L (42.0-54.0) % MCV 87.8 (80.0-94.0) fL MCH 29.6 (25.9-34.0) pg MCHC 33.7 (29.9-35.2) g/dL RDW 13.0 (11.0-15.0) % Plt Count 239 (150-450) 10^3/uL MPV 10.8 (9.5-13.5) fL Neut % (Auto) 86.3 H (43.0-75.0) % Lymph % (Auto) 5.5 L (20.5-60.0) % [place] % (Auto) 7.6 (1.7-12.0) % Eos % (Auto) 0.1 L (0.9-7.0) % Baso % (Auto) 0.1 L (0.2-2.0) % Neut # (Auto) 12.3 H (1.4-6.5) 10^3/uL Lymph # (Auto) 0.8 L (1.2-3.8) 10^3/uL [place] # (Auto) 1.1 H (0.3-0.8) 10^3/uL Eos # (Auto) 0.0 (0.0-0.7) 10^3/uL Baso # (Auto) 0.0 (0.0-0.1) 10^3/uL Abs Immat Gran (auto) 0.05 H (0.00-0.03) 10^3/uL Imm/Tot Granulo (auto) 0.4 (0.0-0.5) % Sodium 138 (136-145) mmol/L Potassium 3.9 (3.5-5.1) mmol/L Chloride 98 (98-107) mmol/L Carbon Dioxide 20.7 L (21.0-32.0) mmol/L Anion Gap 23.2 BUN 9.0 (7.0-18.0) mg/dL Creatinine 1.46 H (0.70-1.30) mg/dL Est GFR ( Amer) >60 (>=60 mL/min/1.73m^2) Est GFR (Non-Af Amer) 56 L (>=60 mL/min/1.73m^2) BUN/Creatinine Ratio 6.2 Glucose 127 H (74-106) mg/dL Calcium 9.1 (8.5-10.1) mg/dL Total Bilirubin 1.2 H (0.2-1.0) mg/dL AST 20 (15-37) U/L ALT 27 (16-63) U/L Alkaline Phosphatase 84 (46-116) U/L Total Protein 7.3 (6.4-8.2) g/dL Albumin 3.5 (3.4-5.0) g/dL Globulin 3.8 g/dL Albumin/Globulin Ratio 0.9 Discharge Plan Discharge Chief Complaint: Weakness Clinical Impression: Joint pain, Rheumatoid arthritis flare Patient Disposition: Home, Self-Care Time of Disposition Decision: 10:17 Condition: Good Mode of Transportation: Private Vehicle Prescriptions / Home Meds: New oxycodone-acetaminophen [Percocet] 5-325 mg tablet 1 tab PO Q6H Qty: 14 0RF methylprednisolone [Medrol (Jaaml)] 4 mg tablets,dose pack 4 mg PO DAILY Qty: 21 0RF No Action gabapentin [Neurontin] 300 mg capsule 300 mg PO TID allopurinol 100 mg tablet 400 mg PO .QD Patient Comments: TOTAL DOSE IS 400MG QD allopurinol 300 mg tablet 350 mg PO .evening trazodone 50 mg tablet 50 mg PO BEDTIME PRN (Reason: sleep) tramadol 50 mg tablet 50 mg PO Q12H PRN (Reason: pain) quetiapine 50 mg tablet See Rx Instructions PO .hs Patient Comments: per pt. 50mg with 25mg Rx Instructions: 75 orally HS; colchicine 0.6 mg tablet 0.6 mg PO .every other clonidine HCl 0.1 mg tablet 0.1 mg PO BID celecoxib 100 mg capsule 100 mg PO DAILY PRN (Reason: RA flare) amlodipine 10 mg tablet 10 mg PO QDAY Print Language: Portuguese Instructions: Arthralgia (ED) Referrals: LEYDI ACEVES [Primary Care Provider] - 1 week
== END 2024-01-11 11:20 | disposition home or self-care (01) ==
PROVIDERS: Emergency Provider Emergency Medicine; PCP Family Medicine
DX: M06.9 Rheumatoid arthritis, unspecified (principal); F17.220 Nicotine dependence, chewing tobacco, uncomplicated
CPT/HCPCS: 36415; 80053; 85025; 96374; 96375; 99284; J1100; J1171

== ENCOUNTER 2024-01-15 09:22 | Emergency (ER) | payer OTHER, SELFPAY ==
[2024-01-15 09:31] VITALS: BP 150/97; PULSE 75; TEMP 36.8; O2SAT 97; BMI 29.5
--- NOTE | 2024-01-15 10:13 | ED_ITS ---
HPI - Extremity Problem General Chief complaint: Extremity Problem, Nontraumatic Stated complaint: UPPER RIGHT EXTREMITY PAIN Time Seen by Provider: 01/15/24 09:37 Source: patient Mode of arrival: walk-in Limitations: no limitations History of Present Illness HPI Narrative: The patient was seen here 4 days ago for gout flareup is coming to the ER with increasing pain in his right elbow as well as the right small finger distal interphalangeal joint. The patient denies any fever chills he mentioned that he been taking his Percocet but it not helping the pain is much he also was taking Medrol Dosepak Patient denies any fall or injury Related Data Home Medications ?Medication ?Instructions ?Recorded ?Confirmed amlodipine 10 mg tablet 10 mg PO QDAY 08/31/22 01/11/24 clonidine HCl 0.1 mg tablet 0.1 mg PO BID 08/31/22 01/11/24 colchicine 0.6 mg tablet 0.6 mg PO .every other 08/31/22 01/11/24 quetiapine 50 mg tablet See Rx Instructions PO .hs 08/31/22 10/08/23 gabapentin 300 mg capsule 300 mg PO TID 02/15/23 01/11/24 (Neurontin) allopurinol 100 mg tablet 400 mg PO .QD 06/03/23 01/11/24 allopurinol 300 mg tablet 350 mg PO .evening 06/03/23 01/11/24 trazodone 50 mg tablet 50 mg PO BEDTIME PRN sleep 01/11/24 01/11/24 Previous Rx's ?Medication ?Instructions ?Recorded oxycodone-acetaminophen 5 mg-325 1 tab PO Q6H pain #14 tabs 01/11/24 mg tablet (Percocet) famotidine 20 mg tablet (Pepcid) 20 mg PO BID #10 tabs 01/15/24 indomethacin 50 mg capsule 50 mg PO TID #15 caps 01/15/24 prednisone 50 mg tablet 50 mg PO DAILY 5 days #5 tabs 01/15/24 Allergies Allergy/AdvReac Type Severity Reaction Status Date / Time No Known Drug Allergies Allergy Verified 01/11/24 08:46 Review of Systems ROS Status of ROS 10 or more systems reviewed and unremark able except as noted in history and below PFSH PFSH Medical History Acute hypernatremia ?E87.0 - Hyperosmolality and hypernatremia (ICD-10) Altered mental status ?R41.82 - Altered mental status, unspecified (ICD-10) Sepsis ?A41.9 - Sepsis, unspecified organism (ICD-10) Acute kidney injury ?N17.9 - Acute kidney failure, unspecified (ICD-10) MONO (generalized anxiety disorder) ?F41.1 - Generalized anxiety disorder (ICD-10) Rheumatoid arthritis ?M06.9 - Rheumatoid arthritis, unspecified (ICD-10) Benign essential hypertension ?I10 - Essential (primary) hypertension (ICD-10) Gouty arthritis ?M10.9 - Gout, unspecified (ICD-10) Acute postoperative pain of knee ?G89.18 - Other acute postprocedural pain (ICD-10) ?M25.569 - Pain in unspecified knee (ICD-10) Visit for wound check ?Z51.89 - Encounter for other specified aftercare (ICD-10) Septic prepatellar bursitis of right knee ?M71.161 - Other infective bursitis, right knee (ICD-10) Acute viral syndrome ?B34.9 - Viral infection, unspecified (ICD-10) Diarrhea ?R19.7 - Diarrhea, unspecified (ICD-10) Rheumatoid arthritis flare ?M06.9 - Rheumatoid arthritis, unspecified (ICD-10) Polyarthralgia ?M25.50 - Pain in unspecified joint (ICD-10) Rheumatoid arthritis flare ?M06.9 - Rheumatoid arthritis, unspecified (ICD-10) Weakness ?R53.1 - Weakness (ICD-10) Mild shortness of breath ?R06.02 - Shortness of breath (ICD-10) Headache ?R51.9 - Headache, unspecified (ICD-10) Polyarthralgia ?M25.50 - Pain in unspecified joint (ICD-10) Flare of rheumatoid arthritis ?M06.9 - Rheumatoid arthritis, unspecified (ICD-10) Arthralgia ?M25.50 - Pain in unspecified joint (ICD-10) Drug-seeking behavior ?Z76.5 - Malingerer [conscious simulation] (ICD-10) Surgical History Total knee replacement status ?Z96.659 - Presence of unspecified artificial knee joint (ICD-10) H/O shoulder surgery ?Z98.890 - Other specified postprocedural states (ICD-10) Social History (Updated 04/20/23 @ 23:15 by April Sierra RN) Smoking status: Never smoker Nicotine containing products detail: chew tobacco Highest level of school completed/degree received: decline to answer Little interest or pleasure in doing things: not at all Feeling down, depressed, or hopeless: not at all Exam Narrative Exam Narrative: Nurses notes and vital signs reviewed and patient is not hypoxic. Upper extremity mostly the right upper extremity: The patient have a significant skin changes of the joint of the elbows with lipoma on the extensor surface of the both elbows. That is not red or hot or inflamed but the patient have some effusion bilaterally there is no redness or hotness in the elbow with a normal range of movement. The patient also have chronic skin changes and joint changes in the fingers mostly distal interphalangeal joints and all his fingers including the right small finger with the distal interphalangeal joint showing a small effusion with redness General: Well-appearing and in no apparent distress. Skin: Warm, dry, no pallor noted. No rash. Head: Normocephalic, atraumatic. Neck: Supple, non-tender. Eye: Pupils are equal, round and EOMI. No scleral icterus. Ears, Nose, Mouth, and Throat: TM are clear, no nasal mucosal hypertrophy. Oral mucosa is moist, no posterior oropharynx erythema, uvula is mid-line Cardiovascular: Regular Rate and Rhythm without murmur, gallop or rub. Respiratory: No accessory muscle use or respiratory distress. Lungs are clear to auscultation, no wheezing, rales or rhonchi Chest Wall: no tenderness Back: No midline thoracic or lumbar vertebral tenderness. No CVA tenderness GI: Abdomen is soft, non-distended. Normal bowel sounds. No masses appreciated. No tenderness to palpation. No rebound, guarding, or rigidity noted. Neurological: A&O x4. No cranial nerve dysfunction observed. No truncal ataxia. Moves all extremities. Sensation intact. Psychiatric: Cooperative and interactive. Normal mood and affect. Constitutional Vital Signs, click to edit/add: Last Vital Signs Temp 98.2 F 01/15/24 09:31 Pulse 75 01/15/24 09:31 Resp 16 01/15/24 09:31 BP 150/97 H 01/15/24 09:31 Pulse Ox 97 01/15/24 09:31 O2 Del Method Room Air 01/15/24 09:31 Course Vital Signs Vital signs: Vital Signs Temperature 98.2 F 01/15/24 09:31 Pulse Rate 75 01/15/24 09:31 Respiratory Rate 16 01/15/24 09:31 Blood Pressure 150/97 H 01/15/24 09:31 Pulse Oximetry 97 01/15/24 09:31 Oxygen Delivery Method Room Air 01/15/24 09:31 Temperature 98.2 F 01/15/24 09:31 Pulse Rate 75 01/15/24 09:31 Respiratory Rate 16 01/15/24 09:31 Blood Pressure 150/97 H 01/15/24 09:31 Pulse Oximetry 97 01/15/24 09:31 Oxygen Delivery Method Room Air 01/15/24 09:31 MDM - Extremity (Nontraumatic) MDM Narrative Medical decision making narrative: The patient was only taking Percocet for pain and I did explain to him that right now indomethacin will be better solution for the pain I also increased his steroid from Medrol to prednisone and explained to him that in case of no improvement in the next 24 hours the patient need to go to a facility where they can drain the effusion from his distal interphalangeal joint although is not needed at the moment and this presentation is mostly secondary to gout The patient was instructed by taking all his medication with food and also stopping his Mobic and Medrol Dosepak that he was taking The patient instructed that in case of fever or increasing redness or any new symptom he is to come back to the ER I also explained to the patient right now that it would not be appropriate to prescribe antibiotic at the moment specially with no effusion drainage and with the fact that this could be secondary only to gout flareup the patient was instructed that in case of fever or chills at that time he need further evaluation for septic arthritis and he would definitely need IV antibiotic and admission The patient is to follow up with primary care physician in next 2-3 days or to return to the emergency department should any of the signs or symptoms worsen or new symptoms develop. The patient agrees with the following Diagnosis and Treatment plan and the patient will be discharged home. And specifically the patient will watch for the next 24 hours and he should suspect improvement Discharge Plan Discharge Chief Complaint: Extremity Problem, Nontraumatic Clinical Impression: Gout, arthritis Patient Disposition: Home, Self-Care Time of Disposition Decision: 10:14 Condition: Good Prescriptions / Home Meds: New prednisone 50 mg tablet 50 mg PO DAILY 5 Days Qty: 5 0RF indomethacin 50 mg capsule 50 mg PO TID Qty: 15 0RF Rx Instructions: administer with food or milk famotidine [Pepcid] 20 mg tablet 20 mg PO BID Qty: 10 0RF Discontinued methylprednisolone [Medrol (Jamal)] 4 mg tablets,dose pack 4 mg PO DAILY Qty: 21 0RF tramadol 50 mg tablet 50 mg PO Q12H PRN (Reason: pain) celecoxib 100 mg capsule 100 mg PO DAILY PRN (Reason: RA flare) No Action gabapentin [Neurontin] 300 mg capsule 300 mg PO TID allopurinol 100 mg tablet 400 mg PO .QD Patient Comments: TOTAL DOSE IS 400MG QD allopurinol 300 mg tablet 350 mg PO .evening trazodone 50 mg tablet 50 mg PO BEDTIME PRN (Reason: sleep) oxycodone-acetaminophen [Percocet] 5-325 mg tablet 1 tab PO Q6H Qty: 14 0RF quetiapine 50 mg tablet See Rx Instructions PO .hs Patient Comments: per pt. 50mg with 25mg Rx Instructions: 75 orally HS; colchicine 0.6 mg tablet 0.6 mg PO .every other clonidine HCl 0.1 mg tablet 0.1 mg PO BID amlodipine 10 mg tablet 10 mg PO QDAY Print Language: Sinhala Instructions: Gout (ED) Referrals: LEYDI ACEVES [Primary Care Provider] - 1 week
[2024-01-15] MEDS: KETOROLAC TROMETHAMINE 30 MG/ML VIAL 15 MG IVP (10:14)
[2024-01-15] MEDS: METHYLPREDNISOLONE SOD SUCC PF 40 MG/ML VIAL IVP (10:14)
[2024-01-15] MEDS: MORPHINE SULFATE 2 MG/ML SYRINGE IV (10:14)
== END 2024-01-15 10:42 | disposition home or self-care (01) ==
LOC: ER 01-17 10:04
PROVIDERS: Emergency Provider Emergency Medicine; PCP Family Medicine
DX: M10.9 Gout, unspecified (principal); M19.021 Primary osteoarthritis, right elbow; F17.220 Nicotine dependence, chewing tobacco, uncomplicated
CPT/HCPCS: 96374; 96375; 99284; J1885; J2270; J2919

== ENCOUNTER 2024-02-04 18:00 | Emergency (ER) | payer OTHER, SELFPAY ==
[2024-02-04 18:20] VITALS: BP 153/99; PULSE 111; TEMP 37.1; O2SAT 97; BMI 28.9
--- NOTE | 2024-02-04 18:26 | XR_ITS ---
[facility] [id number] Patient Name: TRU CARDOZA MRN: [id number] date: 1990 Sex: M Assigned Patient Location: ER Current Patient Location: Accession/Order Number: [id number] Exam Date: 02/04/2024 18:35 Report Date: 02/04/2024 20:20 At the request of: MICHEAL QUICK Procedure: XR hand RT min 3V EXAM: XR hand RT min 3V , 02/04/2024 HISTORY: pain COMPARISON: None. TECHNIQUE: X-rays of the right hand, 3 views. FINDINGS: Small bony erosion is seen at the head of the proximal phalanx in the third digit of the right hand, with moderate soft tissue swelling. Recommend clinical correlation and with rheumatoid arthritis. The bones are well-mineralized. XR/XR hand RT min 3V IMPRESSION: Moderate soft tissue swelling and small bony erosion in the proximal phalanx of third digit of the right hand. Electronically authenticated by: MARINO LINDER Date: 02/04/2024 20:20
[2024-02-04] MEDS: DEXAMETHASONE SOD PHOS 10 MG/ML VIAL PO (18:50)
[2024-02-04] MEDS: KETOROLAC TROMETHAMINE 60 MG/2 ML VIAL IM (18:50)
--- NOTE | 2024-02-04 19:13 | ED.GENADUL1 ---
HPI HPI - General Adult General Chief complaint: Extremity Problem, Nontraumatic Stated complaint: wrist pain Time Seen by Provider: 02/04/24 18:24 Source: patient Mode of arrival: walk-in Limitations: no limitations History of Present Illness HPI narrative: 83-year-old male presents here with a chief complaint of right hand wrist pain. He has a history of rheumatoid arthritis. Patient's been seen here in the emergency room last month for similar pain. Denies any known injury or trauma. 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 Redness chronic swelling is noted. Patient is well-known to the emergency room for pain medication. Related Data Home Medications ?Medication ?Instructions ?Recorded ?Confirmed amlodipine 10 mg tablet 10 mg PO QDAY 08/31/22 02/04/24 clonidine HCl 0.1 mg tablet 0.1 mg PO BID 08/31/22 02/04/24 colchicine 0.6 mg tablet 0.6 mg PO .every other 08/31/22 02/04/24 quetiapine 50 mg tablet See Rx Instructions PO .hs 08/31/22 10/08/23 gabapentin 300 mg capsule 300 mg PO TID 02/15/23 02/04/24 (Neurontin) allopurinol 300 mg tablet 350 mg PO .evening 06/03/23 02/04/24 trazodone 50 mg tablet 50 mg PO BEDTIME PRN sleep 01/11/24 01/11/24 Allergies Allergy/AdvReac Type Severity Reaction Status Date / Time No Known Drug Allergies Allergy Verified 02/04/24 18:20 Opioid HPI Opioid Management Most Recent Opioid Data: Last Pain Scale 8 01/15/24 10:14 01/15/24 Last ORT Total Score 10 06/03/23 01:22 06/03/23 Last ORT Risk Category High Risk 06/03/23 01:22 06/03/23 Ur Phencyclidine Scrn Negative (NEGATIVE) 06/02/23 22:15 06/02/23 Review of Systems ROS Narrative Are a all Systems are negative except as noted/marked. PFSH PFSH Medical History Acute hypernatremia ?E87.0 - Hyperosmolality and hypernatremia (ICD-10) Altered mental status ?R41.82 - Altered mental status, unspecified (ICD-10) Sepsis ?A41.9 - Sepsis, unspecified organism (ICD-10) Acute kidney injury ?N17.9 - Acute kidney failure, unspecified (ICD-10) MONO (generalized anxiety disorder) ?F41.1 - Generalized anxiety disorder (ICD-10) Rheumatoid arthritis ?M06.9 - Rheumatoid arthritis, unspecified (ICD-10) Benign essential hypertension ?I10 - Essential (primary) hypertension (ICD-10) Gouty arthritis ?M10.9 - Gout, unspecified (ICD-10) Acute postoperative pain of knee ?G89.18 - Other acute postprocedural pain (ICD-10) ?M25.569 - Pain in unspecified knee (ICD-10) Visit for wound check ?Z51.89 - Encounter for other specified aftercare (ICD-10) Septic prepatellar bursitis of right knee ?M71.161 - Other infective bursitis, right knee (ICD-10) Acute viral syndrome ?B34.9 - Viral infection, unspecified (ICD-10) Diarrhea ?R19.7 - Diarrhea, unspecified (ICD-10) Rheumatoid arthritis flare ?M06.9 - Rheumatoid arthritis, unspecified (ICD-10) Polyarthralgia ?M25.50 - Pain in unspecified joint (ICD-10) Rheumatoid arthritis flare ?M06.9 - Rheumatoid arthritis, unspecified (ICD-10) Weakness ?R53.1 - Weakness (ICD-10) Mild shortness of breath ?R06.02 - Shortness of breath (ICD-10) Headache ?R51.9 - Headache, unspecified (ICD-10) Polyarthralgia ?M25.50 - Pain in unspecified joint (ICD-10) Flare of rheumatoid arthritis ?M06.9 - Rheumatoid arthritis, unspecified (ICD-10) Arthralgia ?M25.50 - Pain in unspecified joint (ICD-10) Drug-seeking behavior ?Z76.5 - Malingerer [conscious simulation] (ICD-10) Surgical History Total knee replacement status ?Z96.659 - Presence of unspecified artificial knee joint (ICD-10) H/O shoulder surgery ?Z98.890 - Other specified postprocedural states (ICD-10) Social History (Updated 04/20/23 @ 23:15 by April Sierra RN) Smoking status: Never smoker Nicotine containing products detail: chew tobacco Highest level of school completed/degree received: decline to answer Little interest or pleasure in doing things: not at all Feeling down, depressed, or hopeless: not at all Exam Narrative Exam Narrative: Nurses note and vital signs reviewed and patient is not hypoxic. General: The patient appears well and in no apparent distress. Patient is resting comfortably on cart. Skin: Warm, dry, no pallor noted. There is no rash noted. Head: Normocephalic, atraumatic Eye: Normal conjunctiva, no drainage, EOMI. PERRL Ears, Nose, Mouth, and Throat: oral mucosa is moist. Nares patent. Mouth without vesicles. Ear canals patent. Tm's without Erythema Musculoskeletal: Close from lumbar toyed arthritis noted to the right hand chronic swelling no redness or erythema, the patient has no evidence of calf tenderness, no pitting edema, symmetrical pulses noted bilaterally Neurological: A&O x4, normal speech Psychiatric: Cooperative Constitutional Vital Signs, click to edit/add: Last Vital Signs Temp 98.8 F 02/04/24 18:20 Pulse 111 H 02/04/24 18:20 Resp 16 02/04/24 18:20 BP 153/99 H 02/04/24 18:20 Pulse Ox 97 02/04/24 18:20 O2 Del Method Room Air 02/04/24 18:20 Course Vital Signs Vital signs: Vital Signs Temperature 98.8 F 02/04/24 18:20 Pulse Rate 111 H 02/04/24 18:20 Respiratory Rate 16 02/04/24 18:20 Blood Pressure 153/99 H 02/04/24 18:20 Pulse Oximetry 97 02/04/24 18:20 Oxygen Delivery Method Room Air 02/04/24 18:20 Temperature 98.8 F 02/04/24 18:20 Pulse Rate 111 H 02/04/24 18:20 Respiratory Rate 16 02/04/24 18:20 Blood Pressure 153/99 H 02/04/24 18:20 Pulse Oximetry 97 02/04/24 18:20 Oxygen Delivery Method Room Air 02/04/24 18:20 Medical Decision Making MDM Narrative Medical decision making narrative: Is here for pain medication stating his rheumatoid arthritis or gout has flared. Patient takes allopurinol and colchicine. No redness or swelling. Patient also has gabapentin at home. Medicated here with today with Toradol and Decadron. Encouraged follow-up primary care physician. Differential Diagnosis Differential Diagnosis: arthritis flare , joint pain Medical Records Medical records reviewed: Yes I reviewed the patient's medical records Discharge Plan Discharge Chief Complaint: Extremity Problem, Nontraumatic Clinical Impression: Joint pain Patient Disposition: Home, Self-Care Time of Disposition Decision: 19:11 Condition: Good Prescriptions / Home Meds: No Action gabapentin [Neurontin] 300 mg capsule 300 mg PO TID allopurinol 300 mg tablet 350 mg PO .evening Patient Comments: 700 mg total daily. trazodone 50 mg tablet 50 mg PO BEDTIME PRN (Reason: sleep) quetiapine 50 mg tablet See Rx Instructions PO .hs Patient Comments: per pt. 50mg with 25mg Rx Instructions: 75 orally HS; colchicine 0.6 mg tablet 0.6 mg PO .every other clonidine HCl 0.1 mg tablet 0.1 mg PO BID amlodipine 10 mg tablet 10 mg PO QDAY Print Language: Albanian Instructions: Arthralgia (ED) Referrals: LEYDI ACEVES [Primary Care Provider] - 1 week
--- NOTE | 2024-02-04 20:11 | PC.NURSE ---
i gave this patient verbal and paper discharge orders, and he voices yes to understanding these. at time of discharge this patient voices no concerns and shows no signs of distress
== END 2024-02-04 20:12 | disposition home or self-care (01) ==
PROVIDERS: Emergency Provider Emergency Medicine; PCP Family Medicine
DX: M25.50 Pain in unspecified joint (principal); F17.220 Nicotine dependence, chewing tobacco, uncomplicated
CPT/HCPCS: 73130; 96372; 99284; J1100; J1885

== ENCOUNTER 2024-04-15 13:35 | Emergency (ER) | payer OTHER, SELFPAY ==
[2024-04-15 13:39] VITALS: BP 151/102; PULSE 117; TEMP 36.5; O2SAT 97; BMI 28.2
--- OUTSIDE RECORDS SUMMARY | 2024-04-15 13:42 | XMS_ITS | CCD ---
Author Organization [facility] Care Team Providers Care Innovation Analyst Name Role Phone LEYDI ACEVES Primary Care Unavailable Leydi Aceves Primary Care Provider MD Leydi Aceves Primary Care Provider [phone] MD Juvenal Smith Emergency Provider [phone] MD Adam Young Admit Provider MD Hector [...] DR HOLLEY Primary Care Unavailable REINECK, DR JOHSNON Curtis Consulting Unavailabl e REINECK, DR JOHNSON Curtis Attending Unavailabl e REINECK, DR JOHNSON Curtis Admitting Unavailabl e KETAN, DR HOLLEY Primary Care Unavailable HAY ., DR DUGGAN Consulting Unavailable HAY ., DR DUGGAN Attending Unavailable HAY ., DR DUGGAN Admitting Unavailable Winston MD [facility] Primary Care Provider [phone] KAYCE COFFMAN Referring Unavailable [facility] Unavailable Ladi Huber Attending Unavailable Ketan [facility] Provider Leydi Aceves MD Unavailable Ketan CABRAL [facility] Provider [phone] MD Leydi Aceves Primary Care Provider MD Nicola Leyva Attending Provider [phone] Nicola Leyva Attending Unavailab le Ketan, [facility] Unavailable Adam Young Admitting Unavailable Nicola Leyva Attending Unavailab le [facility] Unavailable Nicola Leyva Admitting Unavailab le Wednesday [facility], [place] Unavailable DELMY BOYLE Referring Unavailable KETAN, [facility] Primary Care Unavailable DELMY BOYLE Referring Unavailable KETAN, [facility] Primary Care Unavailable DELMY BOYLE Attending Unavailable KETAN, [facility] Primary Care Unavailable DELMY BOYLE Referring Unavailable KETAN, [facility] Primary Care Unavailable KETAN, [facility] Primary Care Unavailable DELMY BOYLE Attending Unavailable DELMY BOYLE Referring Unavailable KETAN, [facility] Primary Care Unavailable DELMY BOYLE Attending Unavailable KETAN, [facility] Primary Care Unavailable KETAN, HENNY M Attending Unavailable KETANLEYDI Redidng Attending Unavailable [facility] Attending Unavailable LEYDI ACEVES Attending Unavailable MARINA REES Attending Unavailable Medications Current Medications Medication Drug Class(es) Dates Sig (Normalized) Sig (Original) acetaminophen 325 mg / oxyCODONE hydrochloride 5 mg oral tablet (10 sources) Opioid Agonist Start: 01-11-2024 End: 01-26-2024 take 1 tablet by mouth every six hours for pain oxyCODONE-acetami nophen (Percocet) 5-325 MG tablet Indications: 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) Take 1 tablet by mouth every 6 (six) hours if needed for severe pain for up to 5 days 20 tablet 01/21/2024 01/26/2024 Active Start: 05-09-2023 End: 08-22-2023 take 1 tablet by mouth every eight hours Oxycodone-Acetaminophen Discontinued 1 T AB PO Every 8 hours May 09, 2023 [...] 07, 2021 12:00am May 09, 2023 1:48am [id number] 200 actuat albuterol 0.09 mg/actuat metered dose inhaler (6 sources) beta2-Adrenergic Agonist Start: 10-10-2023 albut rocío HFA 90 mcg/act inhaler 10/10/2023 Active allopurinol [...] Start: 03-08-2023 take 1 tablet by barbara th once daily allopurinol (Zyloprim) 100 MG tablet [...] mg oral tablet (20 sources) Benzodiazepine Start: 10-11-19 End: 01-21-20 take 1 tablet by mouth in the morning ALPRAZolam (Xanax) 0.5 MG tablet Indications: Anxiety Take 1 tablet (0.5 mg) by mouth in the morning and 1 tablet (0.5 mg) before bedtime. 60 tablet 12/07/2023 01/21/2024 Discontinued (Therapy completed) Start: 05-09-2023 take 0.5 mg by mouth [...] 12/31/2023 Active brexpiprazole 2 mg oral tablet (7 sources) Atypical Antipsychotic Start: 07-09-2023 take 1 tablet by mouth once daily Brexpiprazole (Rexulti) 2 MG tablet Indications: Anxiety Take 1 tablet by mouth Daily 30 tablet 3 07/09/2023 Active carvedilol 6.25 mg oral tablet (15 sources) alpha-Adrenergic Nilton, beta-Adrenergic Nilton Start: 12-07-2021 [...] Active cloNIDine hydrochloride 0.1 mg oral tablet (16 sources) Central alpha-2 Adrenergic Agonist Start: 08-09-2023 [...] TABLET BY BARBARA TH EVERY OTHER DAY diclofenac sodium 0.01 mg/mg topical gel (4 sources) Nonsteroidal Anti-inflammatory Drug Start: 01-21-2024 diclofenac sodium (Voltaren Arthritis Pain) 1 % gel Indications: 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) Apply 2 g topically in the morning and 2 g in the evening and 2 g before bedtime. 100 g 2 01/21/2024 Active doxycycline hyclate 100 mg oral tablet (2 sources) Tetracycline-class Drug Start: 02-16-2023 take 1 tablet by mouth in the morning doxycycline (Vibra-Tabs) 100 MG tablet Take 100 mg by mouth in the morning and 100 mg before bedtime. 0 02/16/2023 Active famotidine 20 mg oral tablet (2 sources) Histamine-2 Receptor Antagonist Start: 01-15-2024 End: 01-21-2024 take 1 tablet by mouth in the morning famotidine (Pepcid) 20 MG tablet Take 20 mg by mouth in the morning and 20 mg before bedtime. 01/15/2024 01/21/2024 Discontinued (Other) gabapentin 300 mg oral capsule (14 sources) Anti-epileptic Agent Start: 01-17-2024 take 1 capsule by mouth once daily at bedtime gabapentin (Neurontin) 300 MG capsule Indications: Other chronic pain TAKE 1 CAPSULE BY MOUTH EVERY MORNING, EVERY EVENING, AND AT BEDTIME 90 capsule 4 01/17/2024 Active Start: 08-26-2023 take 1 capsule by mo uth at [...] BEFORE BEDTIME 100 capsule 3 03/08/2023 Active indomethacin 50 mg oral capsule (3 sources) Nonsteroidal Anti-inflammatory Drug Start: 01-15-2024 End: 01-22-2024 indomethacin (Indocin) 50 MG capsule 01/15/2024 01/22/2024 Active lidocaine 0.05 mg/mg medicated patch (8 sources) Antiarrhythmic, Amide Local Anesthetic Start: 01-06-2024 apply 1 dose transdermal route in the morning lidocaine (Lidoderm) 5 % patch Place 1 patch on the skin in the morning. 01/06/2024 Active Start: 01-04-2024 apply 1 dose transde rmal route once daily, then apply 1 dose [...] 01/11/2023 Active predniSONE 10 mg oral tablet (18 sources) Start: 01-21-2024 End: 02-01-2024 take 4 tablets by mouth once daily, then take 3 tablets by mouth once daily, then take 2 tablets by mouth once daily, then take 1 tablet by mouth once daily predniSONE (Deltasone) 10 MG tablet Indications: 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) Take 4 tablets (40 mg) by mouth Daily for 3 days, THEN 3 tablets (30 mg) Daily for 3 days, THEN 2 tablets (20 mg) Daily for 3 days, THEN 1 tablet (10 mg) Daily for 3 days. 30 tablet 01/21/2024 02/01/2024 Active Start: 01-15-2024 End: 01-21-2024 predniSONE (Deltasone) 50 MG tablet 01/15/2024 01/21/2024 Discontinued (Therapy completed) Start: 11-30-2023 End: 12-16-2023 take 4 tablets [...] days. 40 tablet 11/30/2023 12/16/2023 Active Start: 10-08-2023 predniSONE (De ltasone) 20 MG tablet 10/08/2023 Active Start: 02-24-2023 take 5 tablets by [...] until off QUEtiapine 100 mg oral tablet (19 sources) Atypical Antipsychotic Start: take 1 tablet [...] oral tablet (20 sources) Opioid Agonist Start: 10-11-2023 End: 02-06-2024 take 1 tablet by mouth [...] pain. traZODone hydrochloride 50 mg oral tablet (6 sources) Serotonin Reuptake Inhibitor Start: take 1-2 tablets by mouth once daily at bedtime as needed for sleep traZODone (Desyrel) 50 MG tablet TAKE 1 - 2 TABLETS BY MOUTH EVERYDAY AT BEDTIME NEEDED FOR SLEEP 11/12/2023 Active Start: 08-22-2023 take 50 mg by mouth once daily [...] 10, 2021 12:00am May 09, 2023 1:48am baclofen 10 mg oral tablet (2 sources) gamma-Aminobutyri c Acid-ergic Agonist Start: 04-05-2023 End: 08-22-2023 take [...] Oxalate Discontinued 5 MG PO Every morning 15 December 10 2022 12:00am May 09, 2023 1:48am Naloxone (1 [...] Problem Date Documented Date Episodic/Chronic Adjustment disorders (13 sources) Adjustment disorder with depressed mood; Translations: [Adjustment disorder with depressed mood] Onset: 07-29-2022 07-29-2022 Chronic Alcohol-related disorders (1 source) Alcohol dependence with intoxication, unspecified; Translations: [ALCOHOL DEPEND W/INTOX UNS] Onset: 12-15-2021 Chronic Anxiety disorders (15 sources) Anxiety; Translations: [Anxiety disorder, unspecified] Onset: 07-29-2022 07-29-2022 Chronic Chronic kidney disease (16 sources) Chronic kidney disease stage 3; Translations: [Stage 3 chronic kidney disease, unspecified whether stage 3a or 3b CKD (HCC)] Onset: 07-29-2022 Chronic E Codes: Natural/environment (1 source) Exposure to other specified factors, initial encounter; Translations: [EXPOSURE OTHER SPEC FACTORS INITIAL] Onset: 07-27-2022 Episodic Essential hypertension (15 sources) Essential hypertension; Translations: [Essential (primary) hypertension] [...] without status migrainosus] 09-27-2021 Chronic Immunity disorders (13 sources) Immunodeficiency disorder; Translations: [Immunodeficiency, unspecified] Onset: 07-29-2022 07-29-2022 Chronic Mood disorders (10 sources) Recurrent major depressive episodes, moderate ; Translations: [Major depressive disorder, recurrent, moderate] Onset: 12-15-2021 12-08-2021 Chronic Nutritional deficiencies (13 sources) Vitamin D deficiency; Translations: [Vitamin D deficiency, unspecified] Onset: 07-29-2022 07-29-2022 Chronic Osteoarthritis (16 sources) Localized, primary osteoarthritis of the shoulder region; Translations: [Primary osteoarthritis, unspecified shoulder] Onset: 07-29-2022 07-29-2022 Chronic Other aftercare (2 sources) Patient encounter status; Translations: [Other chcf (current) drug therapy] Episodic Other aftercare (2 sources) Long-term current use of drug therapy; Translations: [Other terminologist (current) drug therapy] 01-04-2024 Episodic Other connective [...] Onset: 04-02-2022 Chronic Other non-traumatic joint disorders (13 sources) Polyarthropathy; Translations: [Polyarthritis, unspecified] Onset: 2015 12-16-2022 Chronic Other non-traumatic joint disorders (3 sources) Pain in left elbow; Translations: [PAIN IN LEFT ELBOW] Onset: 06-20-2022 Episodic Other upper respiratory infections (7 sources) Acute pansinusitis; Translations: [Acute pansinusitis, unspecified] Onset: 01-11-2024 08-22-2023 Episodic Rheumatoid arthritis and related disease (20 sources) Rheumatoid arthritis of multiple joints; Translations: [Rheumatoid arthritis without rheumatoid factor, multiple sites] Onset: 04-25-2017 Resolved: 12-16-2022 05-10-2017 Chronic Skin and subcutaneous tissue infections (1 source) Cellulitis of left lower limb; Translations: [CELLULITIS OF LEFT LOWER LIMB] Onset: 07-27-2022 Episodic Spondylosis; intervertebral disc disorders; other back problems (13 sources) Degeneration of cervical intervertebral disc; Translations: [...] Da te Episodic/Chronic Deficiency and other anemia (13 sources) Anemia; Translations: [Anemia, unspecified] Onset: 2015 12-16-2022 Episodic E Codes: Unspecified (1 source) Blood alcohol level of 240 mg/100 ml or more; Translations: [BLOOD ALCOHOL LV 240 MG/100 ML/MORE] Onset: 12-15-2021 Episodic Fluid and electrolyte disorders (13 sources) Hyponatremia; Translations: [Hypo-osmolality and hyponatremia] Onset: 2015 12-16-2022 Episodic Malaise and fatigue (3 sources) Weakness; Translations: [WEAKNESS] Onset: 01-31-2022 Episodic Other aftercare (3 sources) Other terminologist (current) drug therapy; Translations: [OTH GANG KNIFE [employer] CHOPPER CURRENT DRUG THERAPY] Onset: 06-30-2022 Episodic Other connective tissue disease (1 source) Other muscle spasm; Translations: [OTHER MUSCLE SPASM] Onset: 10-21-2021 Episodic Other connective tissue disease (13 sources) Full thickness rotator cuff tear; Translations: [Complete rotator cuff tear or rupture of unspecified shoulder, not specified as traumatic] Onset: 07-29-2022 07-29-2022 Episodic Other connective tissue disease (13 sources) Tear of left rotator cuff; Translations: [...] Episodic Poisoning by other medications and drugs (11 sources) Poisoning by unspecified drugs, medicaments and biological substances, accidental (unintentional), initial encounter; Translations: [Poisoning by unspecified drug or medicinal substance] Onset: 06-10-2023 06-10-2023 Episodic Residual codes; unclassified (13 sources) Insomnia; Translations: [Insomnia, unspecified] Onset: 07-29-2022 07-29-2022 Episodic Spondylosis; intervertebral disc disorders; other back problems (7 sources) Muscle spasm of back; Translations: [Cervicalgia] Onset: 09-30-2021 Episodic Suicide and intentional self-inflicted injury (4 sources) Suicidal ideations; Translations: [SUICIDAL IDEATIONS] Onset: 12-06-2021 Episodic Syncope (13 sources) Vasovagal syncope; Translations: [Syncope and collapse] Onset: 12-16-2022 12-16-2022 Episodic Unclassified (1 source) LOW BACK PAIN, UNSPECIFIED; Translations: [LOW BACK PAIN, UNSPECIFIED] Onset: 01-14-2022 Viral infection (12 sources) Viral infection, unspecified; Translations: [Disease caused by 2019nCoV] Onset: 02-03-2022 10-11-2023 Episodic Results Test Name Value Interpretation Reference Range Facility [facility] 01-04-2024 [facility] Office Visit (ANA ) -- NICK WRAY ([id number]) 1990 M Date Time Provider Department 01/04/24 8:20 AM DELMY BOYLE During your visit today, [...] arthritic flares once every 4 months[address] enrollment advisor [address] Jaime in [place] who did diagnostic knee aspiration which according to patient was positive for uric acid crystals. Treated with steroids and continued allopurinol. He has not seen Dr. Jaime since 2014. In 2014, he was hospitalized in [place] for acute polyarthritis. Saw enrollment advisor while in hospital who told him that he possibly had RA. Discharged on steroids. His PCP switched him from allopurinol to Uloric Jan 2017. He also takes colchicine prn. No reduction in frequency or severity of his joint flares with Uloric. In 2017, he has been hospitalized 7-8 times for acute joint flares. Each time he is treated with steroids. Hospitalized at [facility] Apr 2017 for acute flare [...] shoulder surgery by Dr. Tc Coffey at [facility]. No post op complications. Was in [...] of gout 06/2023. He was seen in [facility] for gout flare. Given steroid injection [...] blood Nega (more content not included)... Normal [facility] Cyn 01-04-2024 [facility] Telephone ([id number]) -- NICK WRAY ([id number]) 1990 M Date Time Provider Department 01/04/24 DELMY BOYLE During your visit today, we recorded the following information about you: Camilla Holt LPN 01/04/2024 1:23 PM Signed Nick Wray (Munoz: [id number]) [facility] Rx #: [id number] Need Help? Call us at Outcome Denied [...] of therapy with generic Lidocaine patch. The [facility] Policy for Medical Necessity as posted on the [facility] website and [place] Unified Preferred Drug List criteria were reviewed and per [place] Administrative Code Rule 5160-1-01 (C) and (B), [...] through the community. Drug ZTlido 1.8% patches ePA cloud logo Form [place] Medicaid FirstBest Electronic PA Form (2016 [facility]) Original Claim Info 75 Camilla Holt LPN 01/04/2024 1:23 PM Signed FYI- Insurance wants [...] directed every 24 hours. Authorizing Provider: DELMY BOYLE MD Manzon, Judith D, MD 01/06/2024 8:36 [...] Status:Closed by CAMILLA HOLT on 01/04/24 Normal [facility] No Panel Informationon 01-03 Radiology Study observation (narrative) [facility] XR FOOT 3V AP/LAT/OBL BILon 01-04-2024 XR [...] progressed from 05/04/2017 Mild right foot osteoarthritis. Manager Chemical: ADELA Transcribe Date/Time: Jan 04 2024 10:13A Dictated by : UMA [place] MD This examination was interpreted and the report reviewed and electronically signed by: CHELSEA REEVES MD on Jan 04 2024 3:12PM EST [id number] Normal [facility] XR Foot - bilateral AP and L [...] acute fracture or dislocation. Mild pes planus. [facility] Provider, [facility] * * *Final [...] progressed from 05/04/2017 Mild right foot osteoarthritis. Manager Chemical: ADELA Transcribe Date/Time: Jan 04 2024 10:13A Dictated by : UMA [place] MD This examination was interpreted and the report reviewed and electronically signed by: CHELSEA REEVES MD on Jan 04 2024 3:12PM [facility] XR KNEE 4V AP/PA/LAT/MERCH B [facility] 01-04-2024 XR KNEE 4V AP/PA/LAT/MERCH RAMIRO [...] similar to 05/04/2017. Mild right knee osteoarthritis. 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 Mild right knee osteoarthritis. Manager Chemical: PSCJayashree Transcribe Date/Time: Jan 04 2024 12:48P Dictated by : CHELSEA REEVES MD This examination was interpreted and the report reviewed and electronically signed by: CHELSEA REEVES MD on Jan 04 2024 1:21PM EST [facility] * * *Final Report* * * [...] findings are similar when compared to 05/04/2017. [facility] Provider, Issa Goel - 01/04/2024 * * *Final Report* * [...] similar to 05/04/2017. Mild right knee osteoarthritis. Manager Chemical: ADELA Transcribe Date/Time: Jan 04 2024 12:48P Dictated by : CHELSEA REEVES MD This examination was interpreted and the report reviewed and electronically signed by: CHELSEA REEVES MD on Jan 04 2024 1:21PM EST [facility] XR Knee - bilateral 4 ViewsO rdered By: Ccf Provider on 01-04-2024 [facility] ALT SerPl-cCncon 12-30-2023 ALT [Catalytic activity/Vol] 20 U/L Normal 10-54 [facility] Comment on above: Order Comment: Speci men Type: BLOOD SPECIMEN Ordering Facility: [facility] Address: [address] [place] [address] Performed By: #### C RET1 #### [facility] CLIA [id number] [address] [place] [address] AST SerPl-cCncon 12-30-2023 AST [Catalytic activity/Vol] 18 U/L Normal 14-40 [facility] Comment on above: Order Comment: Speci men Type: BLOOD SPECIMEN Ordering Facility: [facility] Address: [address] [place] [address] Performed By: #### C RET1 #### [facility] CLIA [id number] [address] [place] [address] [facility] Albumin [Mass/Vol] 4.1 g/dL Normal 3.9-4.9 [facility] Comment on above: Order Comment: Speci men Type: BLOOD SPECIMEN Ordering Facility: [facility] Address: [address] [place] [address] Performed By: #### C RET1 #### [facility] CLIA [id number] [address] [place] [address] 25846 CBC W Auto Differential pane l (Bld)on 12-30-2023 Basophils (Bld) [#/Vol] 0.03 10*3/uL Normal <0.11 [facility] Comment on above: Order Comment: Speci men Type: BLOOD SPECIMEN Ordering Facility: [facility] Address: [address] [place] [address] Performed By: #### 5 7021-8 #### [facility] CLIA [id number] [address] [place] [address] 15250 Basophils/100 WBC (Bld) 0.6 % Normal [facility] Comment on above: Order Comment: Speci men Type: BLOOD SPECIMEN Ordering Facility: [facility] Address: [address] [place] [address] Performed By: #### 5 7021-8 #### [facility] CLIA [id number] [address] [place] [address] 70773 Differential cell count method Nom (Bld) Auto Normal [facility] Comment on above: Order Comment: Speci men Type: BLOOD SPECIMEN Ordering Facility: [facility] Address: [address] [place] [address] Performed By: #### 5 7021-8 #### [facility] CLIA [id number] [address] [place] [address]38 Eosinophils (Bld) [#/Vol] 0.06 10*3/uL Normal <0.46 [facility] Comment on above: Order Comment: Speci men Type: BLOOD SPECIMEN Ordering Facility: [facility] Address: [address] [place] [address] Performed By: #### 5 7021-8 #### [facility] CLIA [id number] [address] [place] [address] 62295 Eosinophils/100 WBC (Bld) 1.3 % Normal [facility] Comment on above: Order Comment: Speci men Type: BLOOD SPECIMEN Ordering Facility: [facility] Address: [address] [place] [address] Performed By: #### 5 7021-8 #### [facility] CLIA [id number] [address] [place] [address]3421 Erythrocyte distribution width (RBC) [Ratio] 13.2 % Normal 11.5-15.0 [facility] Comment on above: Order Comment: Speci men Type: BLOOD SPECIMEN Ordering Facility: [facility] Address: [address] [place] [address] Performed By: #### 5 7021-8 #### [facility] CLIA [id number] [address] [place] [address] 79338 Hematocrit (Bld) [Volume fraction] 40.9 % Normal 39.0-51.0 [facility] Comment on above: Order Comment: Speci men Type: BLOOD SPECIMEN Ordering Facility: [facility] Address: [address] [place] [address] Performed By: #### 5 7021-8 #### [facility] CLIA [id number] [address] [place] [address] 21609 Hemoglobin (Bld) [Mass/Vol] 14.3 g/dL Normal 13.0-17.0 [facility] Comment on above: Order Comment: Speci men Type: BLOOD SPECIMEN Ordering Facility: [facility] Address: [address] [place] [address] Performed By: #### 5 7021-8 #### [facility] CLIA [id number] [address] [place] [address] 07464 Immature granulocytes (Bld) [#/Vol] 10*3/uL Normal <0.10 [facility] Comment on above: Order Comment: Speci men Type: BLOOD SPECIMEN Ordering Facility: [facility] Address: [address] [place] [address] Performed By: #### 5 7021-8 #### [facility] CLIA [id number] [address] [place] [address] 30442 Immature granulocytes/100 WBC (Bld) 0.2 % Normal [facility] Comment on above: Order Comment: Speci men Type: BLOOD SPECIMEN Ordering Facility: [facility] Address: [address] [place] [address] Performed By: #### 5 7021-8 #### [facility] CLIA [id number] [address] [place] [address] 84138 Lymphocytes (Bld) [#/Vol] 1.71 10*3/uL Normal 1.00-4.00 [facility] Comment on above: Order Comment: Speci men Type: BLOOD SPECIMEN Ordering Facility: [facility] Address: [address] [place] [address] Performed By: #### 5 7021-8 #### [facility] CLIA [id number] [address] [place] [address] 08918 Lymphocytes/100 WBC (Bld) 36.6 % Normal [facility] Comment on above: Order Comment: Speci men Type: BLOOD SPECIMEN Ordering Facility: [facility] Address: [address] [place] [address] Performed By: #### 5 7021-8 #### [facility] CLIA [id number] [address] [place] [address] 08379 MCH (RBC) [Entitic mass] 29.9 pg Normal 26.0-34.0 [facility] Comment on above: Order Comment: Speci men Type: BLOOD SPECIMEN Ordering Facility: [facility] Address: [address] [place] [address] Performed By: #### 5 7021-8 #### [facility] CLIA [id number] [address] [place] [address] 62482 MCHC (RBC) [Mass/Vol] 35.0 g/dL Normal 30.5-36.0 [facility] Comment on above: Order Comment: Speci men Type: BLOOD SPECIMEN [facility] [facility] Address: [address] [place] [address] Performed By: #### 5 7021-8 #### [facility] CLIA [id number] [address] [place] [address] 75976 MCV (RBC) [Entitic vol] 85.4 fL Normal 80.0-100.0 [facility] Comment on above: Order Comment: Speci men Type: BLOOD SPECIMEN Ordering Facility: [facility] Address: [address] [place] [address] Performed By: #### 5 7021-8 #### [facility] CLIA [id number] [address] [place] [address] 10735 Monocytes (Bld) [#/Vol] 0.28 10*3/uL Normal <0.87 [facility] Comment on above: Order Comment: Speci men Type: BLOOD SPECIMEN Ordering Facility: [facility] Address: [address] [place] [address] Performed By: #### 5 7021-8 #### [facility] CLIA [id number] [address] [place] [address] 49743 Monocytes/100 WBC (Bld) 6.0 % Normal [facility] Comment on above: Order Comment: Speci men Type: BLOOD SPECIMEN Ordering Facility: [facility] Address: [address] [place] [address] Performed By: #### 5 7021-8 #### [facility] CLIA [id number] [address] [place] [address] 78820 Neutrophils (Bld) [#/Vol] 2.58 10*3/uL Normal 1.45-7.50 [facility] Comment on above: Order Comment: Speci men Type: BLOOD SPECIMEN Ordering Facility: [facility] Address: [address] [place], [place] [address] Performed By: #### 5 7021-8 #### [facility] CLIA [id number] [address] [place] [address] 28768 Neutrophils/100 WBC (Bld) 55.3 % Normal [facility] Comment on above: Order Comment: Speci men Type: BLOOD SPECIMEN Ordering Facility: [facility] Address: [address] [place] [address] Performed By: #### 5 7021-8 #### [facility] CLIA [id number] [address] [place] [address] 50408 Nucleated RBC (Bld) [#/Vol] 10*3/uL Normal <0.01 [facility] Comment on above: Order Comment: Speci men Type: BLOOD SPECIMEN Ordering Facility: [facility] Address: [address] [place] [address] Performed By: #### 5 7021-8 #### [facility] CLIA [id number] [address] [place] [address] 94192 Nucleated RBC/100 WBC (Bld) [Ratio] 0.0 /100 WBC Normal [facility] Comment on above: Order Comment: Speci men Type: BLOOD SPECIMEN Ordering Facility: [facility] Address: [address] [place] [address] Performed By: #### 5 7021-8 #### [facility] CLIA [id number] [address] [place] [address] 04447 Platelet mean volume (Bld) [Entitic vol] 10.4 fL Normal 9.0-12.7 [facility] Comment on above: Order Comment: Speci men Type: BLOOD SPECIMEN Ordering Facility: [facility] Address: [address] [place] [address] Performed By: #### 5 7021-8 #### [facility] CLIA [id number] [address] [place] [address] 30141 Platelets (Bld) [#/Vol] 277 10*3/uL Normal 150-400 [facility] Comment on above: Order Comment: Speci men Type: BLOOD SPECIMEN Ordering Facility: [facility] Address: [address] [place], [place] [address] Performed By: #### 5 7021-8 #### [facility] CLIA [id number] [address] [place] [address] 36612 RBC (Bld) [#/Vol] 4.79 10*6/uL Normal 4.20-6.00 [facility] Comment on above: Order Comment: Speci men Type: BLOOD SPECIMEN Ordering Facility: [facility] Address: [address] [place], [place] [address] Performed By: #### 5 7021-8 #### [facility] CLIA [id number] [address] [place] [address] 47235 WBC (Bld) [#/Vol] 4.67 10*3/uL Normal 3.70-11.00 [facility] Comment on above: Order Comment: Speci men Type: BLOOD SPECIMEN Ordering Facility: [facility] Address: [address] [place], [place] [address] Performed By: #### 5 7021-8 #### [facility] CLIA [id number] [address] [place] [address] 01008 [facility] CBC W AUTO DIFF BLDon Basophils/100 WBC (Bld) 0.6 % [facility] BASOPHILS # BLD AUTO 0.03 [facility] DIFFERENTIAL METHOD BLD Auto [facility] EOSINOPHIL # BLD AUTO 0.06 [facility] LYMPHOCYTES # BLD AUTO 1.71 [facility] MONOCYTES # BLD AUTO 0.28 [facility] NEUTROPHILS # BLD AUTO 2.58 [facility] NRBC # BLD AUTO <0.01 [facility] NRBC/100 WBC BLD-RTO 0 /100 WBC [facility] PLATELET # BLD AUTO 277 [facility] PMV BLD AUTO 10.4 fL 9.0 - 12.7 fL [facility] WBC # BLD AUTO 4.67 [facility] Eosinophils/100 WBC (Bld) 1.3 % [facility] Erythrocyte distribution width (RBC) [Ratio] 13.2 % 11.5 - 15.0 % [facility] Hematocrit (Bld) [Volume fraction] 40.9 % 39.0 - 51.0 % [facility] Hemoglobin (Bld) [Mass/Vol] 14.3 g/dL 13.0 - 17.0 g/dL [facility] IMM GRANULOCYTES # BLD AUTO <0.03 NINF [facility] IMM GRANULOCYTES/LEUK NFR BLD AUTO 0.2 % [facility] Lymphocytes/100 WBC (Bld) 36.6 % [facility] MCH (RBC) [Entitic mass] 29.9 pg 26.0 - 34.0 pg [facility] MCHC (RBC) [Mass/Vol] 35 g/dL 30.5 - 36.0 g/dL [facility] MCV (RBC) [Entitic vol] 85.4 fL 80.0 - 100.0 fL [facility] Monocytes/100 WBC (Bld) 6 % [facility] Neutrophils/100 WBC (Bld) 55.3 % [facility] RBC (Bld) [#/Vol] 4.79 10*6/uL 4.20 - 6.0 0 m/uL [facility] Specimen Type: BLOOD SPECIMEN Ordering Facility: [facility] Address: [address] [place], [place] [address] Original Ordering Provider: DELMY HDEZ [facility] CREATININE BLDon 12-30-2023 Creatinine [Mass/Vol] 1.32 mg/dL High 0.73-1.22 [facility] Comment on above: Order Comment: Speci men Type: BLOOD SPECIMEN Ordering Facility: [facility] Address: [address] [place] [address] Performed By: #### C RET1 #### [facility] CLIA [id number] [address] [place] [address] 48630 Creatinine and Glomerular filtration rate.predicted panel (S/P/Bld) 73 mL/min/1.73m??? Normal >=60 [facility] Comment on above: Order Comment: Speci men Type: BLOOD SPECIMEN Ordering Facility: [facility] Address: [address] [place] [address] Result Comment: Jyoti mated Glomerular Filtration Rate [...] #### [facility] CLIA [id number] [address] [place], [place] [address] CRP SerPl-mCncon 12-30-2023 CRP [Mass/Vol] mg/L Normal <0.9 [facility] Comment on above: Order Comment: Specmelina mariee Type: BLOOD SPECIMEN Ordering Facility: [facility] Address: [address] [place] [address] Performed By: #### C RET1, 1741-07, 1919-09, 1750-08 #### [facility] IA [id number] [address] [place], [place] [address] ESR Westergren method (Bld) [Velocity]on 12-30-2023 ESR (Bld) [Velocity] 15 mm/h Normal 0-15 [facility] Comment on above: Order Comment: Yahaira mariee Type: BLOOD SPECIMEN Ordering Facility: [facility] Address: [address] [place] [address] Performed By: #### 4 537-7 #### [facility] CLIA [id number] [address] [place] [address] [place] Urate SerPl-mCncon Urate [Mass/Vol] 4.7 mg/dL Normal 4.0-8.1 [facility] Comment on above: Order Comment: Yahaira mariee Type: BLOOD SPECIMEN Ordering Facility: [facility] Address: [address] [place] [address] Performed By: #### C RET1, 1741-07, 1919-09, 1750-08 #### [facility] CLIA [id number] [address] [place] [address] 69179 SILASOVgretchen 06-24-2023 CNOV Office Visit (RHEMELAV ) -- NICK WRAY ([id number]) 1990 M Date Time Provider Department 06/24/23 [...] arthritic flares once every 4 months[address] enrollment advisor [address] Jaime in [place] who did diagnostic knee aspiration which according to patient was positive for uric acid crystals. Treated with steroids and continued allopurinol. He has not seen Dr. Jaime since 2014. In 2014, he was hospitalized in [place] for acute polyarthritis. Saw enrollment advisor while in hospital who told him that he possibly had RA. Discharged on steroids. His PCP switched him from allopurinol to Uloric Jan 2017. He also takes colchicine prn. No reduction in frequency or severity of his joint flares with Uloric. In 2017, he has been hospitalized 7-8 times for acute joint flares. Each time he is treated with steroids. Hospitalized at [facility] Apr 2017 for acute flare [...] shoulder surgery by Dr. Tc Coffey at [facility]. No post op complications. Was in [...] joints. Maribel (more content not included)... Normal [facility] CRP SerPl-ncon 06-21-2023 CRP [Mass/Vol] mg/L Normal <0.9 [facility] Comment on above: Order Comment: Speci men Type: BLOOD SPECIMEN Ordering Facility: [facility] Address: [address] [place] [address] Performed By: #### C NEEMA1, 1741-07, 1919-09, 1750-08 #### [facility] CLIA [id number] [address] [place] [address] 50816 ESR Westergren method (Bld) [Velocity]on 06-21-2023 ESR (Bld) [Velocity] 2 mm/h Normal 0-15 [facility] Comment on above: Order Comment: Yahaira mariee Type: BLOOD SPECIMEN Ordering Facility: [facility] Address: [address] [place] [address] Performed By: #### C RET1, 1741-07, 1919-09, 1750-08 #### [facility] CLIA [id number] [address] [place] [address] 66620 Urate SerPl-mCncon Urate [Mass/Vol] 5.1 mg/dL Normal 4.0-8.1 [facility] Comment on above: Order Comment: Speci men Type: BLOOD SPECIMEN Ordering Facility: [facility] Address: [address] [place] [address] Performed By: #### C RET1, 1742-6, 1920-8, 175-7 #### [facility] CLIA [id number] [address] [place], [place] [address] Lipid Panelon 05-09-2023 Cholesterol [Mass/Vol] 155 mg/dL Normal 140-200 [facility] Comment on above: Result Comment: Chol less than 200 mg/dl low risk Chol 201-239 mg/dl borderline risk Chol 240 mg/dl and greater high risk Performed By: #### L IPID, [id number], TSH3 wRFLX #### [facility] [address] [place] [address] [facility] Cholesterol in HDL [Mass/Vol] 46 mg/dL Normal 23-92 [facility] Comment on above: Result Comment: HDL CHOL ATP-III CLASSIFICATION Cardiovascular Risk HDL > or equal to 60 mg/dL LOW HDL < 40 mg/dL HIGH Performed By: #### L IPID, [id number], TSH3 wRFLX #### [facility] [address] [id number] [place] Cholesterol.total/Ch olesterol in HDL [Mass ratio] 3.4 {ratio} Normal <5.0 [facility] Comment on above: Performed By: #### L IPID, [id number], TSH3 wRFLX #### [facility] [address] [place] [address] [place] LDL Cholesterol,Calculat ed 90 mg/dL Normal 0-100 [facility] Comment on above: Result Comment: LDL ATP III CLASSIFICATION LDL less than 100 mg/dL Optimal LDL 100-129 mg/dL Near or above optimal LDL 130-159 mg/dL Borderline high LDL 160-189 mg/dL High LDL greater than 189 mg/dL Very high Performed By: #### L IPID, [id number], TSH3 wRFLX #### [facility] [address] [place] [address] [place] Triglyceride w/Reflex 94 mg/dL Normal 0-149 [facility] Comment on above: Result Comment: TRIG ATP III CLASSIFICATION TRIG less than 150 mg/dL Normal TRIG 150-199 mg/dL Borderline high TRIG 200-500 mg/dL High TRIG greater than 500 mg/dL Very high Standard traceable to the Center for Disease Conrtrol and Prevention (CDC) test method. Performed By: #### L IPID, [id number], TSH3 wRFLX #### [address] VLDL CHOLESTEROL 18 mg/dL Normal [facility] Comment on above: Performed By: #### L IPID, [id number], TSH3 wRFLX #### [address] Thyroid Stim Hormone w/Rflxo n 05-09-2023 Thyroid Stim Hormone w/Rflx 0.91 u[iU]/mL Normal 0.45-5.33 [facility] Comment on above: Performed By: #### L IPID, [id number], TSH3 wRFLX #### [address] Vitamin D 25 Hydroxy Totalon 05-09-2023 Vitamin D 25 Hydroxy Total 26.8 ng/mL Low 30-100 [facility] Comment on above: Result Comment: DEVEN MIN D STATUS 25(OH)VITAMIN D RANGE (ng/mL) Deficient <20 Insufficient 20 to <30 Sufficient 30 to 100 Reference: Harpal MF,[place], Dayron WAN, et al. Evaluation,treatment, and prevention of vitamin D deficiency; an Endocrine Society clinical practice guideline. JCEM. 2010; 96(7):1911-30. PERFORMED BY: [place] [address] PATHOLOGIST [employer]PER[employer] MARIO PEDERSON M.D. Performed By: #### L IPID, [id number], TSH3 wRFLX #### [address] CNOVon 03-08-2023 CNOV Office Visit (RHEUAV ) -- NICK WRAY ([id number]) 1990 M Date Time Provider Department 03/08/23 [...] arthritic flares once every 4 months[address] enrollment advisor [address] Jaime in [place] who did diagnostic knee aspiration which according to patient was positive for uric acid crystals. Treated with steroids and continued allopurinol. He has not seen Dr. Jaime since 2014. In 2014, he was hospitalized in [place] for acute polyarthritis. Saw enrollment advisor while in hospital who told him that he possibly had RA. Discharged on steroids. His PCP switched him from allopurinol to Uloric Jan 2017. He also takes colchicine prn. No reduction in frequency or severity of his joint flares with Uloric. In 2017, he has been hospitalized 7-8 times for acute joint flares. Each time he is treated with steroids. Hospitalized at [facility] Apr 2017 for acute flare [...] shoulder surgery by Dr. Tc Coffey at [facility]. No post op complications. Currently on [...] to gou (more content not included)... Normal [facility] ALT SerPl-cCncon 03-04-2023 ALT [Catalytic activity/Vol] 26 U/L Normal 10-54 [facility] Comment on above: Order Comment: Speci men Type: BLOOD SPECIMEN Ordering Facility: [facility] Address: [address] [place] [address] Performed By: #### C RET1, 1741-07, 1919-09, 1750-08 #### [facility] CLIA [id number] [address] [place] [address] 34951 AST SerPl-cCncon 03-04-2023 AST [Catalytic activity/Vol] 20 U/L Normal 14-40 [facility] Comment on above: Order Comment: Speci men Type: BLOOD SPECIMEN Ordering Facility: [facility] Address: [address] [place] [address] Performed By: #### C RET1, 1741-07, 1919-09, 1750-08 #### [facility] CLIA [id number] [address] [place] [address] 97327 Albumin SerPl-mCncon 024 Albumin [Mass/Vol] 4.4 g/dL Normal 3.9-4.9 [facility] Comment on above: Order Comment: Speci men Type: BLOOD SPECIMEN Ordering Facility: [facility] Address: [address] [place] [address] Performed By: #### C RET1, 1742-6, 1920-8, 1751-7 #### [facility] CLIA [id number] [address] [place] [address] 47857 CBC W Auto Differential pane l (Bld)on 03-04-2023 Basophils (Bld) [#/Vol] 10*3/uL Normal <0.11 [facility] Comment on above: Order Comment: Speci men Type: BLOOD SPECIMEN Ordering Facility: [facility] Address: [address] [place] [address] Performed By: #### C RET1 #### [facility] CLIA [id number] [address] [place] [address] 49470 Basophils/100 WBC (Bld) 0.2 % Normal [facility] Comment on above: Order Comment: Speci men Type: BLOOD SPECIMEN Ordering Facility: [facility] Address: [address] [place] [address] Performed By: #### C RET1 #### [facility] CLIA [id number] [address] [place] [address] 27432 Differential cell count method Nom (Bld) Auto Normal [facility] Comment on above: Order Comment: Speci men Type: BLOOD SPECIMEN Ordering Facility: [facility] Address: [address] [place] [address] Performed By: #### C RET1 #### [facility] CLIA [id number] [address] [place] [address] Eosinophils (Bld) [#/Vol] 0.08 10*3/uL Normal <0.46 [facility] Comment on above: Order Comment: Speci men Type: BLOOD SPECIMEN Ordering Facility: [facility] Address: [address] [place] [address] Performed By: #### C RET1 #### [facility] CLIA [id number] [address] [place] [address] 29125 Eosinophils/100 WBC (Bld) 0.9 % Normal [facility] Comment on above: Order Comment: Speci men Type: BLOOD SPECIMEN Ordering Facility: [facility] Address: [address] [place] [address] Performed By: #### C RET1 #### [facility] CLIA [id number] [address] [place] [address] 27847 Erythrocyte distribution width (RBC) [Ratio] 14.3 % Normal 11.5-15.0 [facility] Comment on above: Order Comment: Speci men Type: BLOOD SPECIMEN Ordering Facility: [facility] Address: [address] [place] [address] Performed By: #### C RET1 #### [facility] CLIA [id number] [address] [place] [address] 25599 Hematocrit (Bld) [Volume fraction] 44.0 % Normal 39.0-51.0 [facility] Comment on above: Order Comment: Speci men Type: BLOOD SPECIMEN Ordering Facility: [facility] Address: [address] [place] [address] Performed By: #### C RET1 #### [facility] CLIA [id number] [address] [place] [address] 69137 Hemoglobin (Bld) [Mass/Vol] 14.4 g/dL Normal 13.0-17.0 [facility] Comment on above: Order Comment: Speci men Type: BLOOD SPECIMEN Ordering Facility: [facility] Address: [address] [place] [address] Performed By: #### C RET1 #### [facility] CLIA [id number] [address] [place] [address] 49329 Immature granulocytes (Bld) [#/Vol] 0.03 10*3/uL Normal <0.10 [facility] Comment on above: Order Comment: Speci men Type: BLOOD SPECIMEN Ordering Facility: [facility] Address: [address] [place] [address] Performed By: #### C RET1 #### [facility] CLIA [id number] [address] [place] [address] Immature granulocytes/100 WBC (Bld) 0.3 % Normal [facility] Comment on above: Order Comment: Speci men Type: BLOOD SPECIMEN Ordering Facility: [facility] Address: [address] [place], [place] [address] Performed By: #### C RET1 #### [facility] CLIA [id number] [address] [place] [address] 88469 Lymphocytes (Bld) [#/Vol] 2.45 10*3/uL Normal 1.00-4.00 [facility] Comment on above: Order Comment: Speci men Type: BLOOD SPECIMEN Ordering Facility: [facility] Address: [address] [place] [address] Performed By: #### C RET1 #### [facility] CLIA [id number] [address] [place] [address] 78953 Lymphocytes/100 WBC (Bld) 28.1 % Normal [facility] Comment on above: Order Comment: Speci men Type: BLOOD SPECIMEN Ordering Facility: [facility] Address: [address] [place] [address] Performed By: #### C RET1 #### [facility] CLIA [id number] [address] [place] [address] 29451 MCH (RBC) [Entitic mass] 28.9 pg Normal 26.0-34.0 [facility] Comment on above: Order Comment: Speci men Type: BLOOD SPECIMEN Ordering Facility: [facility] Address: [address] [place] [address] Performed By: #### C RET1 #### [facility] CLIA [id number] [address] [place] [address] 48340 MCHC (RBC) [Mass/Vol] 32.7 g/dL Normal 30.5-36.0 [facility] Comment on above: Order Comment: Speci men Type: BLOOD SPECIMEN Ordering Facility: [facility] Address: [address] [place] [address] Performed By: #### C RET1 #### [facility] CLIA [id number] [address] [place] [address] MCV (RBC) [Entitic vol] 88.2 fL Normal 80.0-100.0 [facility] Comment on above: Order Comment: Speci men Type: BLOOD SPECIMEN Ordering Facility: [facility] Address: [address] [place] [address] Performed By: #### C RET1 #### [facility] CLIA [id number] [address] [place] [address] Monocytes (Bld) [#/Vol] 0.97 10*3/uL High <0.87 [facility] Comment on above: Order Comment: Speci men Type: BLOOD SPECIMEN Ordering Facility: [facility] Address: [address] [place] [address] Performed By: #### C RET1 #### [facility] CLIA [id number] [address] [place] [address] 70990 Monocytes/100 WBC (Bld) 11.1 % Normal [facility] Comment on above: Order Comment: Speci men Type: BLOOD SPECIMEN Ordering Facility: [facility] Address: [address] [place] [address] Performed By: #### C RET1 #### [facility] CLIA [id number] [address] [place] [address] 61297 Neutrophils (Bld) [#/Vol] 5.17 10*3/uL Normal 1.45-7.50 [facility] Comment on above: Order Comment: Speci men Type: BLOOD SPECIMEN Ordering Facility: [facility] Address: [address] [place] [address] Performed By: #### C RET1 #### [facility] CLIA [id number] [address] [place] [address] Neutrophils/100 WBC (Bld) 59.4 % Normal [facility] Comment on above: Order Comment: Speci men Type: BLOOD SPECIMEN Ordering Facility: [facility] Address: [address] [place] [address] Performed By: #### C RET1 #### [facility] CLIA [id number] [address] [place] [address] Nucleated RBC (Bld) [#/Vol] 10*3/uL Normal <0.01 [facility] Comment on above: Order Comment: Speci men Type: BLOOD SPECIMEN Ordering Facility: [facility] Address: [address] [place] [address] Performed By: #### C RET1 #### [facility] CLIA [id number] [address] [place] [address] 02236 Nucleated RBC/100 WBC (Bld) [Ratio] 0.0 /100 WBC Normal [facility] Comment on above: Order Comment: Speci men Type: BLOOD SPECIMEN Ordering Facility: [facility] Address: [address] [place] [address] Performed By: #### C RET1 #### [facility] CLIA [id number] [address] [place] [address] 68540 Platelet mean volume (Bld) [Entitic vol] 9.7 fL Normal 9.0-12.7 [facility] Comment on above: Order Comment: Speci men Type: BLOOD SPECIMEN Ordering Facility: [facility] Address: [address] [place] [address] Performed By: #### C RET1 #### [facility] CLIA [id number] [address] [place] [address] 97087 Platelets (Bld) [#/Vol] 442 10*3/uL High 150-400 [facility] Comment on above: Order Comment: Speci men Type: BLOOD SPECIMEN Ordering Facility: [facility] Address: [address] [place] [address] Performed By: #### C RET1 #### [facility] [facility] CLIA [id number] [address] [place] [address] RBC (Bld) [#/Vol] 4.99 10*6/uL Normal 4.20-6.00 [facility] Comment on above: Order Comment: Speci men Type: BLOOD SPECIMEN Ordering Facility: [facility] Address: [address] [place] [address] Performed By: #### C RET1 #### [facility] CLIA [id number] [address] [place] [address] WBC (Bld) [#/Vol] 8.72 10*3/uL Normal 3.70-11.00 [facility] Comment on above: Order Comment: Speci men Type: BLOOD SPECIMEN Ordering Facility: [facility] Address: [address] [place] [address] Performed By: #### C RET1 #### [facility] CLIA [id number] [address] [place] [address] CREATININE BLDon 03-04-2023 Creatinine [Mass/Vol] 1.21 mg/dL Normal 0.73-1.22 [facility] Comment on above: Order Comment: Speci men Type: BLOOD SPECIMEN Ordering Facility: [facility] Address: [address] [place] [address] Performed By: #### C RET1, 1742-6, 1920-8, 1751-7 #### [facility] CLIA [id number] [address] [place] [address] Creatinine and Glomerular filtration rate.predicted panel (S/P/Bld) 81 mL/min/1.73m??? Normal >=60 [facility] Comment on above: Order Comment: Speci men Type: BLOOD SPECIMEN Ordering Facility: [facility] Address: [address] [place] [address] Result Comment: Jyoti mated Glomerular Filtration Rate [...] actual GFR. Performed By: #### C RET1, 174-6, 1919-09, 1750-08 #### [facility] CLIA [id number] [address] [place] [address] CRP SerPl-mCncon 03-04-2023 CRP [Mass/Vol] 4.2 mg/dL High <0.9 [facility] Comment on above: Order Comment: Speci men Type: BLOOD SPECIMEN Ordering Facility: [facility] Address: [address] [place] [address] Performed By: #### 1 988-5 #### [facility] CLIA [id number] [address] [place] [address] [place] ESR Westergren method (Bld) [Velocity]on 03-04-2023 ESR (Bld) [Velocity] 29 mm/h High 0-15 [facility] Comment on above: Order Comment: Speci men Type: BLOOD SPECIMEN Ordering Facility: [facility] Address: [address] [place] [address] Performed By: #### C RET1 #### [facility] [place] [id number] [address] [place] [address] Urate SerPl-mCncon Urate [Mass/Vol] 14.6 mg/dL High 4.0-8.1 [facility] Comment on above: Order Comment: Speci men Type: BLOOD SPECIMEN Ordering Facility: [facility] Address: [address] [place] [address] Performed By: #### C RET1, 1742-6, 1919-09, 1750-08 #### [facility] [place] [id number] [address] [place] [address] Consent for Treatmenton 01-30 Consent for Treatment [id number] Normal [facility] Discharge Instructionson Discharge Instructions [id number]#[id number] Normal [facility] ED Clinical Summaryon 2022 ED Clinical Summary (Inserted Image. Jodi ble to display) [address] [address] ED Clinical Summary Person Information Name: NICK WRAY [place] Age: 32 Years : 1990 Sex: Male Language: East Timorese PCP: LEYDI ACEVES MD Marital Status: Visit Id: Visit Reason: Post surgical problem; [...] 15:31:03 02/24/2023 15:31:03 02/24/2023 15:31:03 ADDRESS: [address] [facility] [id number] PHYS DOC NOTES: MEDICAL INFORMATION: Prescriptions Given: New Medications [id number], [address], [place] [id number], [phone] predniSONE (predniSONE 10 mg Tab) 1 Dose [...] pain. PATIENT EDUCATION INFORMATION: Instructions: Knee Effusion, Acnt-um-Hruq Follow up: With: Address: When: LEYDI ACEVES [address] [place] [id number] [employer] (1) In 3 days 02/27/2023 Comments: Take the steroids once daily as prescribed to completed the course. Please follow-up with your primary care doctor in the next 2 to 3 days for further evaluation management. Please return to ED for any worsening symptoms. Follow-up with your orthopedic doctor for further evaluation management. DIAGNOSIS: Swelling of joint, knee, right Normal [facility] ED Note-Physicianon 02-25-20 ED Note-Physician Basic Information Time Seen: Ladi Huber DO 02/24/2023 14:07 Chief Complaint Pt had knee surgery for scope to clean out gout in [place] by a doctor out of [place]. Pt. states has had fluiding building up in R knee since Wednesday. Called ortho doc who did surgery and told to go to ER to get fluid drained. Attempted to go to [place] History of Present Illness Patient is a 30-year-old male with past medical history of rheumatoid arthritis, gout presenting to the ED for evaluation of swelling to the right knee. Patient states he had a scope for gout in [place] on Wednesday, since then has been having [...] and Complexity of Problems Differential Diagnosis: [] [facility] Data External documents reviewed: [] My EKG [...] days., # 75 tab(s), Refills(s) 0, Pharmacy: [id number], 187, cm, 02/24/23 12:43:00 EST, Height/Length Dosing... Disposition Plan Discharge Prescription List Prescriptions predniSONE 10 mg Tab, 1 -, Oral, As Directed Follow-up With When Contact Information LEYDI ACEVES In 3 days 02/27/2023 EST [address] [place] [address] [facility] (1) Additional Instructions: Take the steroids once daily as prescribed to completed the course. Please follow-up with your primary care doctor in the next 2 to 3 days for further evaluation management. Please return to ED for any worsening symptoms. Follow-up with your orthopedic doctor for further evaluation management. Patient Education Knee Effusion, Xcym-pu-Wxnz Problem List/Past Medical History Ongoing No qualifying [...] 1 tab(s) (more content not included)... Normal [facility] Comment on above: Result Comment: Elec [...] by your doctor. General instructions ? Take scqr-qov-rojnqwu and prescription medicines only as told by [...] bend and move your knee. ? Take xquo-ozq-bdqleie and prescription medicines only as told by your doctor. ? If you have a brace or an immobilizer, wear it as told by your doctor. This information is not intended to replace advice given to you by your health care provider. Make sure you discuss any questions you have with your health care provider. Document Revised: 10/16/2020 Document Reviewed: 10/16/2020 [employer] Patient Education ? [address] [employer] [facility] ED Patient Summaryon 023 ED Patient Summary (Inserted Image. Jodi ble to display) [place] [id number] Patient Discharge Instructions Person Information Name: NICK WRAY Age: 32 Years Arrival Date: 02/24/2023 12:18:34 Discharge Diagnosis: Swelling of joint, knee, right Primary Care Physician: LEYDI ACEVES MD Provider Information Primary Provider: Ladi Huber DO Advanced Wood Tank Builder:None The exam and treatment you received in the Emergency Department were for an urgent problem and are not intended as complete care. It is important that you follow up with a doctor, nurse practitioner, or physician?s esol teacher assistant for ongoing care. If your symptoms [...] Follow-up Instructions: With: Address: When: LEYDI ACEVES [address] [place], [place] [id number] [employer] (1) In 3 days 02/27/2023 Comments: Take [...] participating provider. Patient Education Materials: Knee Effusion, Ucqd-gq-Dajm A MESSAGE TO ALL PATIENTS REGARDING OPIOIDS PRESCRIPTION OPIOIDS: WHAT YOU NEED TO KNOW Prescription opioids can be used to help relieve ftpqnqfw-yw-fddqnx pain and are often prescribed following a [...] Administration (www.fd (more content not included)... Normal [facility] Crystals, Fluidson 3 Crystals,Fluid Positive Abnormal NEG [facility] Comment on above: Result Comment: FEW INTRACELLULAR AND MANY EXTRACELLULAR URIC ACID CRYSTALS Performed By: #### F LCRYS #### [facility] [employer] [address] [place] [address] Assembler Musical Equipment: Krish Abdi MD [facility] [address] [place] [address] Assembler Musical Equipment: Drew Godoy MD #### FLDCT #### [facility] [address] [place] [address] Assembler Musical Equipment: Drew Godoy MD Pathologist Review: ELECTRONICALLY KENAmbrosio GODOY MD [facility] Comment on above: Performed By: #### F LCRYS #### [facility] [address] [place] [address] Assembler Musical Equipment: Krish Abdi MD [facility] [address] [place] [address] Assembler Musical Equipment: Drew Godoy MD #### FLDCT #### [facility] [address] [place] [address] Assembler Musical Equipment: Drew Godoy MD Fluid Cell Count and Diffon 02-19-2023 Basophils/100 WBC (Bld) 0 % Normal 0 [facility] Comment on above: Performed By: #### F LCRYS #### [facility] [address] [place] [address] Assembler Musical Equipment: Krish Abdi MD [facility] [address] [place] [address] Assembler Musical Equipment: Drew Godoy MD #### FLDCT #### [facility] [address] [place] [address] Assembler Musical Equipment: Drew Godoy MD Eosinophils/100 WBC (Bld) 0 % Normal 0 [facility] Comment on above: Performed By: #### F LCRYS #### [facility] [address] [place] [address] Assembler Musical Equipment: Krish Abdi MD [facility] [address] [place] [address] Assembler Musical Equipment: Drew Godoy MD #### FLDCT #### [facility] [address] [place] [address] Assembler Musical Equipment: Drew Godoy MD Lymphocytes/100 WBC (Bld) 10 % Normal [facility] Comment on above: Performed By: #### F LCRYS #### [facility] [address] [place] [address] Assembler Musical Equipment: Krish Abdi MD [facility] [address] [place] [address] Assembler Musical Equipment: Drew Godoy MD #### FLDCT #### [facility] [address] [place] [address] Assembler Musical Equipment: Drew Godoy MD [place]/Macrophage 0 % Normal [facility] Comment on above: Performed By: #### F LCRYS #### [facility] [address] [place] [address] Assembler Musical Equipment: Krish Abdi MD [facility] [address] [place] [address] Assembler Musical Equipment: Drew Godoy MD #### FLDCT #### [facility] [address] [place] [address] Assembler Musical Equipment: Drew Godoy MD Neutrophils/100 WBC (Bld) 90 % Normal [facility] Comment on above: Performed By: #### F LCRYS #### [facility] [address] [place] [address] Assembler Musical Equipment: Krish Abdi MD [facility] [address] [place] [address] Assembler Musical Equipment: Drew Godoy MD #### FLDCT #### [facility] [address] [place] [address] Assembler Musical Equipment: Drew Godoy MD RBC (Bld) [#/Vol] 0.75460 10*6/uL Normal [facility] Comment on above: Performed By: #### F LCRYS #### [facility] [address] [place] [address] Assembler Musical Equipment: Krish Abdi MD [facility] [address] [place] [address] Assembler Musical Equipment: Drew Godoy MD #### FLDCT #### [facility] [address] [place] [address] Assembler Musical Equipment: Drew Godoy MD WBC (Bld) [#/Vol] 9.96 10*3/uL Normal [facility] Comment on above: Performed By: #### F LCRYS #### [facility] [address] [place] [address] Assembler Musical Equipment: Krish Abdi MD [facility] [address] [place] [address] Assembler Musical Equipment: Drew Godoy MD #### FLDCT #### [facility] [address] [place] [address] Assembler Musical Equipment: Drew Godoy MD Appearance (U) Cloudy [facility] Comment on above: Performed By: #### F LCRYS #### [facility] [address] [place] [address] Assembler Musical Equipment: Krish Abdi MD [facility] [address] [place] [address] Assembler Musical Equipment: Drew Godoy MD #### FLDCT #### [facility] [address] [place] [address] Assembler Musical Equipment: Drew Godoy MD Color (U) Pale Yellow [facility] Comment on above: Performed By: #### F LCRYS #### [facility] [address] [place] [address] Assembler Musical Equipment: Krish Abdi MD [facility] [address] [place] [address] Assembler Musical Equipment: Drew Godoy MD #### FLDCT #### [facility] [address] [place] [address] Assembler Musical Equipment: Drew Godoy MD Type of Specimen .FLUID Normal [facility] Comment on above: Performed By: #### F LCRYS #### [facility] [address] [place] [address] Assembler Musical Equipment: Krish Abdi MD [facility] [address] [place], [place] [address] Assembler Musical Equipment: Drew Godoy MD #### FLDCT #### [facility] [address] [place], [place] [id number] Assembler Musical Equipment: Drew Godoy MD CBC AUTO DIFFon 06-28-2022 BASO # 0.0 103/ul Normal 0.0-0.1 [facility] Comment on above: Performed By: #### C BC #### [facility] [address] [place] [address] Dr. Nilay Gibbs Basophils/100 WBC (Bld) 0.2 % Normal 0.2-2.0 [facility] Comment on above: Performed By: #### C BC #### [facility] [address] [place] [address] [address] Nilay Gibbs EO # 0.0 103/ul Normal 0.0-0.7 [facility] Comment on above: Performed By: #### C BC #### [facility] [address] [place] [address] Dr. Nilay Gibbs Eosinophils/100 WBC (Bld) 0.3 % Critically low 0.9-7.0 [facility] Comment on above: Performed By: #### C BC #### [facility] [address] [place] [address] [address] Nilay Gibbs Erythrocyte distribution width (RBC) [Ratio] 13.9 % Normal 11.0-15.0 [facility] Comment on above: Performed By: #### C BC #### [facility] [address] [place] [address] Dr. Nilay Gibbs Hematocrit (Bld) [Volume fraction] 39.8 % Critically low 42.0-54.0 [facility] Comment on above: Performed By: #### C BC #### [facility] [address] [place] [address] [address] Nilay Gibbs Hemoglobin (Bld) [Mass/Vol] 13.2 g/dL Critically low 14.0-18.0 [facility] Comment on above: Performed By: #### C BC #### [facility] [address] [place] [address] [address] Nilay Gibbs IG # 0.04 10e3/ul Critically high 0.00-0.03 [facility] Comment on above: Performed By: #### C BC #### [facility] [address] [place] [address] Dr. Nilay Gibbs IG % 0.4 % Normal 0.0-0.5 [facility] Comment on above: Performed By: #### C BC #### [facility] [address] [place] [address] Dr. Nilay Gibbs LYMPH # 1.8 103/ul Normal 1.2-3.8 [facility] Comment on above: Performed By: #### C BC #### [facility] [address] [place] [address] Dr. Nilay Gibbs Lymphocytes/100 WBC (Bld) 17.5 % Critically low 20.5-60.0 [facility] Comment on above: Performed By: #### C BC #### [facility] [address] [place] [address] Dr. Nilay Gibbs MANUAL DIFF REQ NO Normal [facility] Comment on above: Performed By: #### C BC #### [facility] [address] [place] [address] Dr. Nilay Gibbs MCH (RBC) [Entitic mass] 29.3 pg Normal 25.9-34.0 [facility] Comment on above: Performed By: #### C BC #### [facility] [address] [place] [address] Dr. Nilay Gibbs MCHC (RBC) [Mass/Vol] 33.2 g/dL Normal 29.9-35.2 [facility] Comment on above: Performed By: #### C BC #### [facility] [address] [place] [address] [address] Nilay Gibbs MCV (RBC) [Entitic vol] 88.4 fL Normal 80.0-94.0 [facility] Comment on above: Performed By: #### C BC #### [facility] [address] [place] [address] [address] Nilay Gibbs MONO # 0.9 103/ul Critically high 0.3-0.8 [facility] Comment on above: Performed By: #### C BC #### [facility] [address] [place] [address] [address] Nilay Gibbs Monocytes/100 WBC (Bld) 9.4 % Normal 1.7-12.0 [facility] Comment on above: Performed By: #### C BC #### [facility] [address] [place] [address] [address] Nilay Gibbs NEUT # 7.2 103/ul Critically high 1.4-6.5 [facility] Comment on above: Performed By: #### C BC #### [facility] [address] [place] [address] [address] Nilay Gibbs Neutrophils/100 WBC (Bld) 72.2 % Normal 43.0-75.0 [facility] Comment on above: Performed By: #### C BC #### [facility] [address] [place] [address] Dr. Nilay Gibbs Platelet mean volume (Bld) [Entitic vol] 9.6 fL Normal 9.5-13.5 [facility] Comment on above: Performed By: #### C BC #### [facility] [address] [place] [address] Dr. Nilay Gibbs PLT 356 103/ul Normal 150-450 [facility] Comment on above: Performed By: #### C BC #### [facility] [address] [place] [address] Dr. Nilay Gibbs RBC 4.50 106/ul Critically low 4.70-6.10 [facility] Comment on above: Performed By: #### C BC #### [facility] [address] [place] [address] Dr. Nilay Gibbs WBC 10.0 103/ul Normal 4.0-11.0 [facility] Comment on above: Performed By: #### C BC #### [facility] [address] [place] [address] Dr. Nilay Gibbs PROF CHEM 8 (BAS METB)on Anion gap [Moles/Vol] 12.4 mmol/L Normal [facility] Comment on above: Performed By: #### A MM #### [facility] [address] [place] [address] Dr. Nilay Gibbs Calcium [Mass/Vol] 9.4 mg/dL Normal 8.5-10.1 [facility] Comment on above: Performed By: #### A MM #### [facility] [address] [place] [address] Dr. Nilay Gibbs Chloride [Moles/Vol] 105 mmol/L Normal 98-107 [facility] Comment on above: Performed By: #### A MM #### [facility] [address] [place] [address] Dr. Nilay Gibbs CO2 [Moles/Vol] 25.6 mmol/L Normal 21.0-32.0 [facility] Comment on above: Performed By: #### A MM #### [facility] [address] [place] [address] Dr. Nilay Gibbs Creatinine [Mass/Vol] 1.18 mg/dL Normal 0.70-1.30 [facility] Comment on above: Performed By: #### A MM #### [facility] [address] [place] [address] Dr. Nilay Gibbs EGFR-AF TRINIDADIAN >60 Normal >=60 [facility] Comment on above: Performed By: #### A MM #### [facility] [address] [place] [address] Dr. Nilay Gibbs EGFR-NON AF TRINIDADIAN >60 Normal >=60 [facility] Comment on above: Performed By: #### A MM #### [facility] [address] [place] [address] Dr. Nilay Gibbs Glucose [Mass/Vol] 125 mg/dL Critically high 74-106 [facility] Comment on above: Performed By: #### A MM #### [facility] [address] [place] [address] Dr. Nilay Gibbs Potassium [Moles/Vol] 4.3 mmol/L Normal 3.5-5.1 [facility] Comment on above: Performed By: #### A MM #### [facility] [address] [place] [address] Dr. Nilay Gibbs Sodium [Moles/Vol] 139 mmol/L Normal 136-145 [facility] Comment on above: Performed By: #### A MM #### [facility] [address] [place] [address] Dr. Nilay Gibbs Urea nitrogen [Mass/Vol] 15.0 mg/dL Normal 7.0-18.0 [facility] Comment on above: Performed By: #### A MM #### [facility] [address] [place] [address] Dr. Nilay Gibbs Urea nitrogen/Creatinine [Mass ratio] 12.7 mg/mg Normal [facility] Comment on above: Performed By: #### A MM #### [facility] [address] [place] [address] Dr. Nilay Gibbs CBC AUTO DIFFon 06-20-2022 BASO # 0.0 103/ul Normal 0.0-0.1 [facility] Comment on above: Performed By: #### A MM #### [facility] [address] [place] [address] Dr. Nilay Gibbs Basophils/100 WBC (Bld) 0.2 % Normal 0.2-2.0 [facility] Comment on above: Performed By: #### A MM #### [facility] [address] [place] [address] Dr. Nilay Gibbs EO # 0.0 103/ul Normal 0.0-0.7 [facility] Comment on above: Performed By: #### A MM #### [facility] [address] [place] [address] Dr. Nilay Gibbs Eosinophils/100 WBC (Bld) 0.3 % Critically low 0.9-7.0 [facility] Comment on above: Performed By: #### A MM #### [facility] [address] [place] [address] Dr. Nilay Gibbs Erythrocyte distribution width (RBC) [Ratio] 14.3 % Normal 11.0-15.0 [facility] Comment on above: Performed By: #### A MM #### [facility] [address] [place] [address] Dr. Nilay Gibbs Hematocrit (Bld) [Volume fraction] 39.3 % Critically low 42.0-54.0 [facility] Comment on above: Performed By: #### A MM #### [facility] [address] [place] [address] Dr. Nilay Gibbs Hemoglobin (Bld) [Mass/Vol] 13.1 g/dL Critically low 14.0-18.0 [facility] Comment on above: Performed By: #### A MM #### [facility] [address] [place] [address] Dr. Nilay Gibbs IG # 0.03 10e3/ul Normal 0.00-0.03 [facility] Comment on above: Performed By: #### A MM #### [facility] [address] [place] [address] Dr. Nilay Gibbs IG % 0.3 % Normal 0.0-0.5 [facility] Comment on above: Performed By: #### A MM #### [facility] [address] [place] [address] Dr. Nilay Gibbs LYMPH # 1.7 103/ul Normal 1.2-3.8 [facility] Comment on above: Performed By: #### A MM #### [facility] [address] [place] [address] Dr. Nilay Gibbs Lymphocytes/100 WBC (Bld) 14.5 % Critically low 20.5-60.0 [facility] Comment on above: Performed By: #### A MM #### [facility] [address] [place] [address] Dr. Nilay Gibbs MANUAL DIFF REQ NO Normal [facility] Comment on above: Performed By: #### A MM #### [facility] [address] [place] [address] Dr. Nilay Gibbs MCH (RBC) [Entitic mass] 29.2 pg Normal 25.9-34.0 [facility] Comment on above: Performed By: #### A MM #### [facility] [address] [place] [address] Dr. Nilay Gibbs MCHC (RBC) [Mass/Vol] 33.3 g/dL Normal 29.9-35.2 [facility] Comment on above: Performed By: #### A MM #### [facility] [address] [place] [address] Dr. Nilay iGbbs MCV (RBC) [Entitic vol] 87.5 fL Normal 80.0-94.0 [facility] Comment on above: Performed By: #### A MM #### [facility] [address] [place] [address] Dr. Nilay Gibbs MONO # 1.3 103/ul Critically high 0.3-0.8 [facility] Comment on above: Performed By: #### A MM #### [facility] [address] [place] [address] Dr. Nilay Gibbs Monocytes/100 WBC (Bld) 10.9 % Normal 1.7-12.0 [facility] Comment on above: Performed By: #### A MM #### [facility] [address] [place] [address] Dr. Nilay Gibbs NEUT # 8.7 103/ul Critically high 1.4-6.5 [facility] Comment on above: Performed By: #### A MM #### [facility] [address] [place] [address] Dr. Nilay Gibbs Neutrophils/100 WBC (Bld) 73.8 % Normal 43.0-75.0 [facility] Comment on above: Performed By: #### A MM #### [facility] [address] [place] [address] Dr. Nilay Gibbs Platelet mean volume (Bld) [Entitic vol] 10.9 fL Normal 9.5-13.5 [facility] Comment on above: Performed By: #### A MM #### [facility] [address] [place] [address] Dr. Nilay Gibbs PLT 171 103/ul Normal 150-450 [facility] Comment on above: Performed By: #### A MM #### [facility] [address] [place] [address] Dr. Nilay Gibbs RBC 4.49 106/ul Critically low 4.70-6.10 [facility] Comment on above: Performed By: #### A MM #### [facility] [address] [place] [address] Dr. Nilay Gibbs WBC 11.7 103/ul Critically high 4.0-11.0 [facility] Comment on above: Performed By: #### A MM #### [facility] [address] [place] [address] Dr. Nilay Gibbs CRPon 06-20-2022 CRP 25.4 mg/dL Critically high <=1.0 [facility] Comment on above: Performed By: #### C RP, CMP #### [facility] [address] [place] [address] Dr. Nilay Gibbs CULTURE BLOODon 06-20-2022 Microscopic examination of blood, culture Culture Observations: NO GROWTH AT 5 DAYS. Normal [facility] Comment on above: Performed By: #### C MP #### [facility] [address] [place] [address] Dr. Nilay Gibbs Microscopic examination of blood, culture Culture Observations: NO GROWTH AT 5 DAYS. Normal [facility] Comment on above: Performed By: #### C MP #### [facility] [address] [place] [address] Dr. Nilay Gibbs LACTATE/LACTIC ACIDon 2022 Lactate [Moles/Vol] 0.7 mmol/L Normal 0.4-2.0 [facility] Comment on above: Performed By: #### A MM #### [facility] [address] [place] [address] Dr. Nilay Gibbs PROF 14(COMP METB)on 023 Albumin [Mass/Vol] 3.8 g/dL Normal 3.4-5.0 [facility] Comment on above: Performed By: #### C RP, CMP #### [facility] [address] [address] [address] Nilay Gibbs Albumin/Globulin [Mass ratio] 1.1 {ratio} Normal [facility] Comment on above: Performed By: #### C RP, CMP #### [facility] [address] [place] [address] Dr. Nilay Gibbs ALP [Catalytic activity/Vol] 85 U/L Normal 46-116 [facility] Comment on above: Performed By: #### C RP, CMP #### [facility] [address] [place] [address] Dr. Nilay Gibbs ALT [Catalytic activity/Vol] 29 U/L Normal 16-63 [facility] Comment on above: Performed By: #### C RP, CMP #### [facility] [address] [place] [address] Dr. Nilay Gibbs Anion gap [Moles/Vol] 15.2 mmol/L Normal [facility] Comment on above: Performed By: #### C RP, CMP #### [facility] [address] [place] [address] Dr. Nilya Gibbs AST [Catalytic activity/Vol] 20 U/L Normal 15-37 [facility] Comment on above: Performed By: #### C RP, CMP #### [facility] [address] [address] [address] Nilay Gibbs Bilirubin [Mass/Vol] 1.1 mg/dL Critically high 0.2-1.0 [facility] Comment on above: Performed By: #### C RP, CMP #### [facility] [address] [address] [address] Nilay Gibbs Calcium [Mass/Vol] 9.4 mg/dL Normal 8.5-10.1 [facility] Comment on above: Performed By: #### C RP, CMP #### [facility] [address] [address] [address] Nilay Gibbs Chloride [Moles/Vol] 99 mmol/L Normal 98-107 [facility] Comment on above: Performed By: #### C RP, CMP #### [facility] [address] [place] [address] Dr. Nilay Gibbs CO2 [Moles/Vol] 25.7 mmol/L Normal 21.0-32.0 [facility] Comment on above: Performed By: #### C RP, CMP #### [facility] [address] [place] [address] Dr. Nilay Gibbs Creatinine [Mass/Vol] 1.32 mg/dL Critically high 0.70-1.30 [facility] Comment on above: Performed By: #### C RP, CMP #### [facility] [address] [place] [address] Dr. Nilay Gibbs EGFR-AF TRINIDADIAN >60 Normal >=60 [facility] Comment on above: Performed By: #### C RP, CMP #### [facility] [address] [place] [address] Dr. Nilay Gibbs EGFR-NON AF TRINIDADIAN >60 Normal >=60 [facility] Comment on above: Performed By: #### C RP, CMP #### [facility] [address] [place] [address] Dr. Nilay Gibbs Globulin (S) [Mass/Vol] 3.6 g/dL Normal [facility] Comment on above: Performed By: #### C RP, CMP #### [facility] [address] [place] [address] Dr. Nilay Gibbs Glucose [Mass/Vol] 106 mg/dL Normal 74-106 [facility] Comment on above: Performed By: #### C RP, CMP #### [facility] [address] [place] [address] Dr. Nilay Gibbs Potassium [Moles/Vol] 3.9 mmol/L Normal 3.5-5.1 [facility] Comment on above: Performed By: #### C RP, CMP #### [facility] [address] [place] [address] Dr. Nilay Gibbs Protein [Mass/Vol] 7.4 g/dL Normal 6.4-8.2 [facility] Comment on above: Performed By: #### C RP, CMP #### [facility] [address] [place] [address] Dr. Nilay Gibbs Sodium [Moles/Vol] 136 mmol/L Normal 136-145 [facility] Comment on above: Performed By: #### C RP, CMP #### [facility] [address] [place] [address] Dr. Nilay Gibbs Urea nitrogen [Mass/Vol] 10.0 mg/dL Normal 7.0-18.0 [facility] Comment on above: Performed By: #### C RP, CMP #### [facility] [address] [place] [address] Dr. Nilay Gibbs Urea nitrogen/Creatinine [Mass ratio] 7.6 mg/mg Normal [facility] Comment on above: Performed By: #### C RP, CMP #### [facility] [address] [place] [address] Dr. Nilay Gibbs SED RATE [facility] 2022 SED RATE 46 mm/hr Critically high <=15 [facility] Comment on above: Performed By: #### S EDR #### [facility] [address] [place] [address] Dr. Nilay Gibbs [facility]on SARS-CoV-2 (COVID-19) RNA TALHA+probe Ql (Unsp spec) Not detected Normal NOT DETECTED [facility] Comment on above: Result Comment: When [...] for this test is supported by the Import/Export Specialist of Health and Human Service's declaration that [...] used). Performed By: #### A MM #### [facility] [address] [place] [address] Dr. Nilay Gibbs INFLUENZA A AND B AGon 01-31 [facility] SEE BELOW Normal [facility] Comment on above: Result Comment: Nega tive for Flu A protein angiten. Infection due to Flu A cannot be ruled out. Flu A angiten in the sample may be below the detection limit of the test. Performed By: #### A MM #### [facility] [address] [place] [address] Dr. iNlay Gibbs INFLUBNEG SEE BELOW Normal [facility] Comment on above: Result Comment: Nega tive for Flu B protein antigen. Infection due to Flu B cannot be ruled out. Flu B antigen in the sample may be below the detection limit of the test. Performed By: #### A MM #### [facility] [address] [place] [address] Dr. Nilay Gibbs INFLUENZA A AG Negative Normal NEGATIVE SEE COMMENT [facility] Comment on above: Performed By: #### A MM #### [facility] [address] [place] [address] Dr. Nilay Gibbs INFLUENZA B AG Negative Normal NEGATIVE SEE COMMENT [facility] Comment on above: Performed By: #### A MM #### [facility] [address] [place] [address] Dr. Nilay Gibbs INTERNAL CONTROLS Within Normal Limits Normal Wi thin Normal Limits [facility] Comment on above: Performed By: #### A MM #### [facility] [address] [place] [address] Dr. Nilay Gibbs Cholesterol [Mass/volume] in Serum or PlasmaOrdered By: Adam Young on 12-08-2021 Cholesterol [Mass/Vol] 205 mg/dL 140-200 [facility] Comment on above: Chol less than 200 m g/dl low riskChol 201-239 mg/dl borderline riskChol 240 mg/dl and greater high risk Cholesterol in LDL Calc [Mas s/Vol]Ordered By: Adam Young on 12-08-2021 Cholesterol in LDL [Mass/Vol] 120 mg/dL 0-100 [facility] Comment on above: LDL ATP III CLASSIFI CATIONLDL less than 100 mg/dL OptimalLDL 100-129 mg/dL Near or above optimalLDL 130-159 mg/dL Borderline highLDL 160-189 mg/dL HighLDL greater than 189 mg/dL Very high Cholesterol in VLDL Calc [Ma ss/Vol]Ordered By: Adam Young on 12-08-2021 Cholesterol in VLDL [Mass/Vol] 37 mg/dL [facility] No Panel InformationOrdered By: Adam Young on 12-08-2021 25-Hydroxy Vitamin D Total 50.6 ng/mL 30-100 [facility] Comment on above: VITAMIN D STATUS 25( [...] Cholesterol in HDL [Mass/Vol] 47 mg/dL 29-71 [facility] Comment on above: HDL CHOL ATP-III CLA SSIFICATION Cardiovascular RiskHDL > or equal to 60 mg/dL LOWHDL < 40 mg/dL HIGH Serum or plasma total choles terol/high density lipoprotein (HDL) cholesterol mass ratOrdered By: Adam Young on 12-08-2021 Cholesterol.total/Ch olesterol in HDL [Mass ratio] 4.4 {ratio} <5.0 [facility] TSH DL <= 0.005 mIU/L QnOrde red By: Adam Young on 12-08-2021 TSH Qn 0.75 m[IU]/L 0.45-5.33 [facility] Triglyceride [Mass/volume] i n Serum or PlasmaOrdered By: Adam Young on 12-08-2021 Triglyceride [Mass/Vol] 188 mg/dL 35-149 [facility] Comment on above: TRIG ATP III CLASSIF ICATIONTRIG less than 150 mg/dL NormalTRIG 150-199 mg/dL Borderline highTRIG 200-500 mg/dL High TRIG greater than 500 mg/dL Very highStandard traceable to the Center for Disease Conrtrol and Prevention (CDC) test method. [facility]19 [facility]on SARS-CoV-2 (COVID-19) RNA TALHA+probe Ql (Unsp spec) Not detected Normal NOT DETECTED [facility] Comment on above: Result Comment: When diagnostic [...] for this test is supported by the Import/Export Specialist of Health and Human Service's declaration that [...] used). Performed By: #### C MP #### [facility] [address] [address] [address] Nilay Gibbs ETHANOL (BLD ALC)on 12-08-19 Ethanol [Mass/Vol] 288 mg/dL Normal [facility] Comment on above: Performed By: #### C MP #### [facility] [address] [address] [address] Nilay Gibbs ALC NOTE NOTE: 80 mg/dl is th e legal limit for a blood alcohol level Normal [facility] Comment on above: Performed By: #### C MP #### [facility] [address] [place] [address] Dr. Nilay Gibbs Performed By: #### A MM #### [facility] [address] [place] [address] Dr. Nilay Gibbs Ethanol [Mass/Vol] 130 mg/dL Normal [facility] Comment on above: Performed By: #### A MM #### [facility] [address] [place] [address] Dr. Nilay Gibbs Ethanol [Mass/Vol] 196 mg/dL Normal [facility] Comment on above: Performed By: #### A MM #### [facility] [address] [place] [address] Dr. Nilay Gibbs ACETAMINOPHENon 12-06-2021 Acetaminophen [Mass/Vol] ug/mL Critically low 10.0-30.0 [facility] Comment on above: Performed By: #### A CET #### [facility] [address] [place] [address] Dr. Nilay Gibbs AMMONIAon 12-06-2021 Ammonia (P) [Moles/Vol] 22 umol/L Normal 11-32 [facility] Comment on above: Performed By: #### A MM #### [facility] [address] [place] [address] Dr. Nilya Gibbs CBC AUTO DIFFon 12-06-2021 BASO # 0.0 103/ul Normal 0.0-0.1 [facility] Comment on above: Performed By: #### A MM #### [facility] [address] [place] [address] Dr. Nilay Gibbs Basophils/100 WBC (Bld) 0.5 % Normal 0.2-2.0 [facility] Comment on above: Performed By: #### A MM #### [facility] [address] [place] [address] Dr. Nilay Gibbs EO # 0.1 103/ul Normal 0.0-0.7 [facility] Comment on above: Performed By: #### A MM #### [facility] [address] [place] [address] Dr. Nilay Gibbs Eosinophils/100 WBC (Bld) 1.0 % Normal 0.9-7.0 [facility] Comment on above: Performed By: #### A MM #### [facility] [address] [place] [address] Dr. Nilay Gibbs Erythrocyte distribution width (RBC) [Ratio] 12.9 % Normal 11.0-15.0 [facility] Comment on above: Performed By: #### A MM #### [facility] [address] [place] [address] Dr. Nilya Gibbs Hematocrit (Bld) [Volume fraction] 40.5 % Critically low 42.0-54.0 [facility] Comment on above: Performed By: #### A MM #### [facility] [address] [place] [address] Dr. Nilay Gibbs Hemoglobin (Bld) [Mass/Vol] 13.9 g/dL Critically low 14.0-18.0 [facility] Comment on above: Performed By: #### A MM #### [facility] [address] [place] [address] Dr. Nilay Gibbs IG # 0.02 10e3/ul Normal 0.00-0.03 [facility] Comment on above: Performed By: #### A MM #### [facility] [address] [place] [address] Dr. Nilay Gibbs IG % 0.3 % Normal 0.0-0.5 [facility] Comment on above: Performed By: #### A MM #### [facility] [address] [place] [address] Dr. Nilay Gibbs LYMPH # 2.7 103/ul Normal 1.2-3.8 [facility] Comment on above: Performed By: #### A MM #### [facility] [address] [place] [address] Dr. Nilay Gibbs Lymphocytes/100 WBC (Bld) 45.2 % Normal 20.5-60.0 [facility] Comment on above: Performed By: #### A MM #### [facility] [address] [place] [address] Dr. Nilay Gibbs MANUAL DIFF REQ NO Normal [facility] Comment on above: Performed By: #### A MM #### [facility] [address] [address] [address] Nilay Gibbs MCH (RBC) [Entitic mass] 29.8 pg Normal 25.9-34.0 [facility] Comment on above: Performed By: #### A MM #### [facility] [address] [place] [address] Dr. Nilay Gibbs MCHC (RBC) [Mass/Vol] 34.3 g/dL Normal 29.9-35.2 [facility] Comment on above: Performed By: #### A MM #### [facility] [address] [place] [address] Dr. Nilay Gibbs MCV (RBC) [Entitic vol] 86.9 fL Normal 80.0-94.0 [facility] Comment on above: Performed By: #### A MM #### [facility] [address] [place] [address] Dr. Nilay Gibbs MONO # 0.4 103/ul Normal 0.3-0.8 [facility] Comment on above: Performed By: #### A MM #### [facility] [address] [place] [address] Dr. Nilay Gibbs Monocytes/100 WBC (Bld) 6.3 % Normal 1.7-12.0 [facility] Comment on above: Performed By: #### A MM #### [facility] [address] [place] [address] Dr. Nilay Gibbs NEUT # 2.7 103/ul Normal 1.4-6.5 [facility] Comment on above: Performed By: #### A MM #### [facility] [address] [place] [address] Dr. Nilay Gibbs Neutrophils/100 WBC (Bld) 46.7 % Normal 43.0-75.0 [facility] Comment on above: Performed By: #### A MM #### [facility] [address] [place] [address] Dr. Nilay Gibbs Platelet mean volume (Bld) [Entitic vol] 10.4 fL Normal 9.5-13.5 [facility] Comment on above: Performed By: #### A MM #### [facility] [address] [address] [address] Nilay Gibbs PLT 237 103/ul Normal 150-450 [facility] Comment on above: Performed By: #### A MM #### [facility] [address] [address] [address] Nilay Gibbs RBC 4.66 106/ul Critically low 4.70-6.10 [facility] Comment on above: Performed By: #### A MM #### [facility] [address] [address] [address] Nilay Gibbs WBC 5.9 103/ul Normal 4.0-11.0 [facility] Comment on above: Performed By: #### A MM #### [facility] [address] [place] [address] Dr. Nilay Gibbs DRUG SCREEN RAPID (URINE)on 12-06-2021 AMP Negative Normal NEGATIVE [facility] Comment on above: Performed By: #### D RUGRPD #### [facility] [address] [place] [address] Dr. Nilay Gibbs BAR Negative Normal NEGATIVE [facility] Comment on above: Performed By: #### D RUGRPD #### [facility] [address] [place] [address] Dr. Nilay Gibbs BUP Negative Normal NEGATIVE [facility] Comment on above: Performed By: #### D RUGRPD #### [facility] [address] [address] [address] Nilay Gibbs BZO Positive Abnormal NEGATIVE [facility] Comment on above: Performed By: #### D RUGRPD #### [facility] [address] [address] [address] Nilay Gibbs ROQUE Negative Normal NEGATIVE [facility] Comment on above: Performed By: #### D RUGRPD #### [facility] [address] [place] [address] Dr. Nilay Gibbs CUT-OFFS SEE BELOW Normal [facility] Comment on above: Result Comment: AMP (Amphetamine): 500ng/mL, BAR (Barbituates): 200 ng/mL, BZO (Benzodiazepines): 150 ng/mL, BUP (Buprenorphine): 10 ng/mL, ROQUE (Cocaine): 150 ng/mL, mAMP (Methamphetamine): 500 ng/mL, MTD (Methadone): 200 ng/mL, OPI (Opiates): 100 ng/mL, OXY (Oxycodone): 100 ng/mL, PCP (Phencyclidine): 25 ng/mL, PPX (Propoxyphene): 300 ng/mL, THC (Cannabinoids): 50 ng/mL, TCA (Trycyclic Antidepressants): 300 ng/mL Performed By: #### D RUGRPD #### [facility] [address] [place] [address] Dr. Nilay Gibbs DRUG CUT HEADER DRUG CLASS TEST SYST EM CUT-OFF CONCENTRATIONS ARE FOLLOWS: Normal [facility] Comment on above: Performed By: #### D RUGRPD #### [facility] [address] [place] [address] Dr. Nilay Gibbs mAMP Negative Normal NEGATIVE [facility] Comment on above: Performed By: #### D RUGRPD #### [facility] [address] [place] [address] Dr. Nilay Gibbs MTD Negative Normal NEGATIVE [facility] Comment on above: Performed By: #### D RUGRPD #### [facility] [address] [place] [address] Dr. Nilay Gibbs OPI Negative Normal NEGATIVE [facility] Comment on above: Performed By: #### D RUGRPD #### [facility] [address] [place] [address] Dr. Nilay Gibbs OXY Negative Normal NEGATIVE [facility] Comment on above: Performed By: #### D RUGRPD #### [facility] [address] [place] [address] Dr. Nilay Gibbs PCP Negative Normal NEGATIVE [facility] Comment on above: Performed By: #### D RUGRPD #### [facility] [address] [place] [address] Dr. Nilay Gibbs PPX Negative Normal NEGATIVE [facility] Comment on above: Performed By: #### D RUGRPD #### [facility] [address] [place] [address] Dr. Nilay Gibbs TCA Negative Normal NEGATIVE [facility] Comment on above: Performed By: #### D RUGRPD #### [facility] [address] [place] [address] Dr. Nilay Gibbs THC Negative Normal NEGATIVE [facility] Comment on above: Performed By: #### D RUGRPD #### [facility] [address] [place] [address] Dr. Nilay Gibbs ETHANOL (BLD ALC)on 12-07-19 22 ALC NOTE NOTE: 80 mg/dl is th e legal limit for a blood alcohol level Normal [facility] Comment on above: Performed By: #### C MP #### [facility] [address] [place] [address] Dr. Nilay Gibbs Ethanol [Mass/Vol] 336 mg/dL Normal [facility] Comment on above: Performed By: #### C MP #### [facility] [address] [place] [address] Dr. Nilay Gibbs PROF 14(COMP METB)on 022 Albumin [Mass/Vol] 4.2 g/dL Normal 3.4-5.0 [facility] Comment on above: Performed By: #### C MP #### [facility] [address] [place] [address] Dr. Nilay Gibbs Albumin/Globulin [Mass ratio] 1.3 {ratio} Normal [facility] Comment on above: Performed By: #### C MP #### [facility] [address] [place] [address] Dr. Nilay Gibbs ALP [Catalytic activity/Vol] 104 U/L Normal 46-116 [facility] Comment on above: Performed By: #### C MP #### [facility] [address] [place] [address] Dr. Nilay Gibbs ALT [Catalytic activity/Vol] 41 U/L Normal 16-63 [facility] Comment on above: Performed By: #### C MP #### [facility] [address] [address] [address] Nilay Gibbs Anion gap [Moles/Vol] 11.5 mmol/L Normal [facility] Comment on above: Performed By: #### C MP #### [facility] [address] [address] [address] Nilay Gibbs AST [Catalytic activity/Vol] 37 U/L Normal 15-37 [facility] Comment on above: Performed By: #### C MP #### [facility] [address] [address] [address] Nilay Gibbs Bilirubin [Mass/Vol] 0.2 mg/dL Normal 0.2-1.0 [facility] Comment on above: Performed By: #### C MP #### [facility] [address] [place] [address] Dr. Nilay Gibbs Calcium [Mass/Vol] 8.6 mg/dL Normal 8.5-10.1 [facility] Comment on above: Performed By: #### C MP #### [facility] [address] [place] [address] Dr. Nilay Gibbs Chloride [Moles/Vol] 97 mmol/L Critically low 98-107 [facility] Comment on above: Performed By: #### C MP #### [facility] [address] [place] [address] Dr. Nilay Gibbs CO2 [Moles/Vol] 26.0 mmol/L Normal 21.0-32.0 [facility] Comment on above: Performed By: #### C MP #### [facility] [address] [address] [address] Nilay Gibbs Creatinine [Mass/Vol] 1.47 mg/dL Critically high 0.70-1.30 [facility] Comment on above: Performed By: #### C MP #### [facility] [address] [place] [address] Dr. Nilay Gibbs EGFR-AF TRINIDADIAN >60 Normal >=60 [facility] Comment on above: Performed By: #### C MP #### [facility] [address] [place] [address] Dr. Nilay Gibbs EGFR-NON AF TRINIDADIAN 56 mL/min/1.73m2 Critically low >=60 [facility] Comment on above: Performed By: #### C MP #### [facility] [address] [place] [address] Dr. Nilay Gibbs Globulin (S) [Mass/Vol] 3.2 g/dL Normal [facility] Comment on above: Performed By: #### C MP #### [facility] [address] [address] [address] Nilay Gibbs Glucose [Mass/Vol] 117 mg/dL Critically high 74-106 [facility] Comment on above: Performed By: #### C MP #### [facility] [address] [address] [address] Nilay Gibbs Potassium [Moles/Vol] 3.5 mmol/L Normal 3.5-5.1 [facility] Comment on above: Performed By: #### C MP #### [facility] [address] [place] [address] Dr. Nilay Gibbs Protein [Mass/Vol] 7.4 g/dL Normal 6.4-8.2 [facility] Comment on above: Performed By: #### C MP #### [facility] [address] [place] [address] Dr. Nilay Gibbs Sodium [Moles/Vol] 131 mmol/L Critically low 136-145 [facility] Comment on above: Performed By: #### C MP #### [facility] [address] [place] [address] Dr. Nilay Gibbs Urea nitrogen [Mass/Vol] 14.0 mg/dL Normal 7.0-18.0 [facility] Comment on above: Performed By: #### C MP #### [facility] [address] [place] [address] Dr. Nilay Gibbs Urea nitrogen/Creatinine [Mass ratio] 9.5 mg/mg Normal [facility] Comment on above: Performed By: #### C MP #### [facility] [address] [place] [address] Dr. Nilay Gibbs SALICYLATEon 12-06-2021 SALICYLATE <2.8 Normal <=19.9 [facility] Comment on above: Performed By: #### A MM #### [facility] [address] [address] [address] Nilay Gibbs MRI Shoulder w/o Lefton [...] by Stephen Ware on 11/11/2021 0955 Normal [facility] Voice Over Artist Activated partial thrombopla stin time (aPTT) in platelet poor plasma by coagulation aOrdered By: Kristal Goldberg on 09-27-2021 aPTT Coag (PPP) [Time] 34.7 s 25.1-36.5 [facility] Albumin [Mass/volume] in Ser um or PlasmaOrdered By: Kristal Goldberg on 09-27-2021 Albumin [Mass/Vol] 4.1 g/dL 3.2-5.5 [facility] Basophils Auto (Bld) [#/Vol] Ordered By: Kristal Goldberg on 09-27-2021 Basophils (Bld) [#/Vol] 0.0 10*3/uL 0.0-0.2 [facility] Basophils/100 WBC Auto (Bld) Ordered By: Kristal Goldberg on 09-27-2021 Basophils/100 WBC (Bld) 0.3 % . [facility] Bilirubin Auto test strip Ql (U)Ordered By: Kristal Goldberg on 09-27-2021 Bilirubin Ql (U) Negative Negative [facility] [facility] Blood hemoglobin measurement (mass/volume)Ordered By: Kristal Goldberg on 09-27-2021 Hemoglobin (Bld) [Mass/Vol] 13.6 g/dL 13.0-17.0 [facility] [place] Blood leukocytes automated c ount (number/volume)Ordered By: Kristal Goldberg on 09-27-2021 WBC (Bld) [#/Vol] 5.7 10*3/uL 4.5-11.0 [facility] CBC AUTO DIFFon 09-27-2021 BASO # 0.0 103/ul Normal 0.0-0.1 [facility] Comment on above: Performed By: #### A MM #### [facility] [address] [place] [address] Dr. Nilay Gibbs Basophils/100 WBC (Bld) 0.5 % Normal 0.2-2.0 [facility] Comment on above: Performed By: #### A MM #### [facility] [address] [place] [address] Dr. Nilay Gibbs EO # 0.1 103/ul Normal 0.0-0.7 [facility] Comment on above: Performed By: #### A MM #### [facility] [address] [address] [address] Nilay Gibbs Eosinophils/100 WBC (Bld) 1.6 % Normal 0.9-7.0 [facility] Comment on above: Performed By: #### A MM #### [facility] [address] [place] [address] Dr. Nilay Gibbs Erythrocyte distribution width (RBC) [Ratio] 14.0 % Normal 11.0-15.0 [facility] Comment on above: Performed By: #### A MM #### [facility] [address] [place] [address] Dr. Nilay Gibbs Hematocrit (Bld) [Volume fraction] 40.2 % Critically low 42.0-54.0 [facility] Comment on above: Performed By: #### A MM #### [facility] [address] [place] [address] Dr. Nilay Gibbs Hemoglobin (Bld) [Mass/Vol] 13.7 g/dL Critically low 14.0-18.0 [facility] Comment on above: Performed By: #### A MM #### [facility] [address] [place] [address] Dr. Nilay Gibbs IG # 0.01 10e3/ul Normal 0.00-0.03 [facility] Comment on above: Performed By: #### A MM #### [facility] [address] [place] [address] Dr. Nilay Gibbs IG % 0.2 % Normal 0.0-0.5 [facility] Comment on above: Performed By: #### A MM #### [facility] [address] [place] [address] Dr. Nilay Gibbs LYMPH # 2.1 103/ul Normal 1.2-3.8 [facility] Comment on above: Performed By: #### A MM #### [facility] [address] [place] [address] Dr. Nilay Gibbs Lymphocytes/100 WBC (Bld) 37.1 % Normal 20.5-60.0 [facility] Comment on above: Performed By: #### A MM #### [facility] [address] [place] [address] Dr. Nilay Gibbs MANUAL DIFF REQ NO Normal [facility] Comment on above: Performed By: #### A MM #### [facility] [address] [place] [address] Dr. Nilay Gibbs MCH (RBC) [Entitic mass] 30.1 pg Normal 25.9-34.0 [facility] Comment on above: Performed By: #### A MM #### [facility] [address] [place] [address] Dr. Nilay Gibbs MCHC (RBC) [Mass/Vol] 34.1 g/dL Normal 29.9-35.2 [facility] Comment on above: Performed By: #### A MM #### [facility] [address] [place] [address] Dr. Nilay Gibbs MCV (RBC) [Entitic vol] 88.4 fL Normal 80.0-94.0 [facility] Comment on above: Performed By: #### A MM #### [facility] [address] [place] [address] Dr. Nilay Gibbs MONO # 0.4 103/ul Normal 0.3-0.8 [facility] Comment on above: Performed By: #### A MM #### [facility] [address] [place] [address] Dr. Nilay Gibbs Monocytes/100 WBC (Bld) 7.2 % Normal 1.7-12.0 [facility] Comment on above: Performed By: #### A MM #### [facility] [address] [place] [address] Dr. Nilay Gibbs NEUT # 3.1 103/ul Normal 1.4-6.5 [facility] Comment on above: Performed By: #### A MM #### [facility] [address] [place] [address] Dr. Nilay Gibbs Neutrophils/100 WBC (Bld) 53.4 % Normal 43.0-75.0 [facility] Comment on above: Performed By: #### A MM #### [facility] [address] [place] [address] Dr. Nilay Gibbs Platelet mean volume (Bld) [Entitic vol] 10.3 fL Normal 9.5-13.5 [facility] Comment on above: Performed By: #### A MM #### [facility] [address] [place] [address] Dr. Nilay Gibbs PLT 254 103/ul Normal 150-450 [facility] Comment on above: Performed By: #### A MM #### [facility] [address] [place] [address] Dr. Nilay Gibbs RBC 4.55 106/ul Critically low 4.70-6.10 [facility] Comment on above: Performed By: #### A MM #### [facility] [address], [place] [address] Dr. Nilay Gibbs WBC 5.7 103/ul Normal 4.0-11.0 [facility] Comment on above: Performed By: #### A MM #### [facility] [address], [place] [address] HEAD WO CONon [...] RUFINA MARIN Date: 2021-09-27 10:27 Normal [facility] CTA HEAD WO W CONon 09-28-19 22 [...] by: NEL KING Date: 2021-09-27 12:19 Normal [facility] CTA NECK WO W CONon 09-28-19 [...] NEL KING Date: 2021-09-27 12:06 Normal [facility] Creatine kinase [Enzymatic a ctivity/volume] in Serum or PlasmaOrdered By: Kristal Goldberg on 09-27-2021 CK [Catalytic activity/Vol] 181 U/L 22-269 [facility] [place] Creatinine and Glomerular fi ltration rate.predicted panel (S/P/Bld)Ordered By: Kristal Goldberg on 09-27-2021 Creatinine [Mass/Vol] 1.36 mg/dL 0.64-1.27 [facility] [place] Eosinophils Auto (Bld) [#/Vo l]Ordered By: Kristal Goldberg on 09-27-2021 Eosinophils (Bld) [#/Vol] 0.1 10*3/uL 0.0-0.45 [facility] [place] Eosinophils/100 WBC Auto (Bl d)Ordered By: Kristal Goldberg on 09-27-2021 Eosinophils/100 WBC (Bld) 1.2 % . [facility] [place] Erythrocyte distribution wid th Auto (RBC) [Ratio]Ordered By: Kristal Goldberg on 09-27-2021 Erythrocyte distribution width (RBC) [Ratio] 14.5 % 12.0-14.8 [facility] [place] Estimated glomerular filtrat ion rate (GFR) non- AmericanOrdered By: Kristal Goldberg on 09-27-2021 GFR/1.73 sq M.predicted among non-blacks MDRD (S/P/Bld) [Vol rate/Area] > 60 mL/Min [facility] [place] Globulin Calc (S) [Mass/Vol] Ordered By: Kristal Goldberg on 09-27-2021 Globulin (S) [Mass/Vol] 2.4 g/dL [facility] [place] Hematocrit Auto (Bld) [Volum e fraction]Ordered By: Kristal Goldberg on 09-27-2021 Hematocrit (Bld) [Volume fraction] 40.8 % 38.8-50.0 [facility] [place] Ketones Auto test strip (U) [Mass/Vol]Ordered By: Kristal Goldberg on 09-27-2021 Ketones (U) [Mass/Vol] Negative Negative [facility] [place] [facility] - CoagulationOrde red By: Kristal Goldberg on 09-27-2021 PT Coag (PPP) [Time] 11.8 s 9.0-12.9 [facility] - Hematology and Cell countsOrdered By: Kristal Goldberg on 09-27-2021 Nucleated RBC/100 WBC (Bld) [Ratio] 0.0 % 0-0.5 [facility] Lymphocytes Auto (Bld) [#/Vo l]Ordered By: Kristal Goldberg on 09-27-2021 Lymphocytes (Bld) [#/Vol] 1.8 10*3/uL 1.00-4.8 [facility] [place] Lymphocytes/100 WBC Auto (Bl d)Ordered By: Kristal Goldberg on 09-27-2021 Lymphocytes/100 WBC (Bld) 31.2 % . [facility] MCH Auto (RBC) [Entitic mass ]Ordered By: Kristal Goldberg on 09-27-2021 MCH (RBC) [Entitic mass] 30.1 pg 27.5-35.2 [facility] [place] MCHC Auto (RBC) [Mass/Vol]Or dered By: Kristal Goldberg on 09-27-2021 MCHC (RBC) [Mass/Vol] 33.4 g/dL 32.5-35.6 [facility] MCV Auto (RBC) [Entitic vol] Ordered By: Kristal Goldberg on 09-27-2021 MCV (RBC) [Entitic vol] 90.3 fL 83.5-101 [facility] [place] Monocytes Auto (Bld) [#/Vol] Ordered By: Kristal Goldberg on 09-27-2021 Monocytes (Bld) [#/Vol] 0.3 10*3/uL 0.0-0.8 [facility] [place] Monocytes/100 WBC Auto (Bld) Ordered By: Kristal Goldberg on 09-27-2021 Monocytes/100 WBC (Bld) 6.0 % . [facility] [place] Neutrophils Auto (Bld) [#/Vo l]Ordered By: Kristal Goldberg on 09-27-2021 Neutrophils (Bld) [#/Vol] 3.5 10*3/uL 1.8-7.7 [facility] Neutrophils/100 WBC Auto (Bl d)Ordered By: Kristal Goldberg on 09-27-2021 Neutrophils/100 WBC (Bld) 61.3 % . [facility] No Panel InformationOrdered By: Kristal Goldberg on 09-27-2021 Estimated GFR () > 60 mL/Min [facility] [place] Comment on above: GFR estimated refere nce range: According to KDOQI guidelines, <60 ml/min/1.73m2 is sufficient to diagnose a patient with chronic kidney disease. Pharmacy Creatinine Clearance (Chem 94.06 [facility] [place] PROF CHEM 8 (BAS METB)on Anion gap [Moles/Vol] 10.0 mmol/L Normal [facility] Comment on above: Performed By: #### C MP #### [facility] [address] [address] [address] Nilay Gibbs Calcium [Mass/Vol] 9.4 mg/dL Normal 8.5-10.1 [facility] Comment on above: Performed By: #### C MP #### [facility] [address] [address] [address] Nilay Gibbs Chloride [Moles/Vol] 103 mmol/L Normal 98-107 [facility] Comment on above: Performed By: #### C MP #### [facility] [address] [address] [address] Nilay Gibbs CO2 [Moles/Vol] 27.6 mmol/L Normal 21.0-32.0 [facility] Comment on above: Performed By: #### C MP #### [facility] [address] [address] [address] Nilay Gibbs Creatinine [Mass/Vol] 1.39 mg/dL Critically high 0.70-1.30 [facility] Comment on above: Performed By: #### C MP #### [facility] [address] [address] [address] Nilay Gibbs EGFR-AF TRINIDADIAN >60 Normal >=60 [facility] Comment on above: Performed By: #### C MP #### [facility] [address] [address] [address] Nilay Gibbs EGFR-NON AF TRINIDADIAN 60 mL/min/1.73m2 Normal >=60 [facility] Comment on above: Performed By: #### C MP #### [facility] [address] [address] [address] Nilay Gibbs Glucose [Mass/Vol] 115 mg/dL Critically high 74-106 [facility] Comment on above: Performed By: #### C MP #### [facility] [address] [address] [address] Nilay Gibbs Potassium [Moles/Vol] 3.6 mmol/L Normal 3.5-5.1 [facility] Comment on above: Performed By: #### C MP #### [facility] [address] [address] [address] Nilay Gibbs Sodium [Moles/Vol] 137 mmol/L Normal 136-145 [facility] Comment on above: Performed By: #### C MP #### [facility] [address] [address] [address] Nilay Gibbs Urea nitrogen [Mass/Vol] 17.0 mg/dL Normal 7.0-18.0 [facility] Comment on above: Performed By: #### C MP #### [facility] [address] [address] [address] Nilay Gibbs Urea nitrogen/Creatinine [Mass ratio] 12.2 mg/mg Normal [facility] Comment on above: Performed By: #### C MP #### [facility] [address] [address] [address] Nilay Gibbs PROTIMEon 09-27-2021 INR Coag (PPP) [Relative time] 0.99 {INR} Normal [facility] Comment on above: Performed By: #### P T, PTT #### [facility] [address] [place] [address] Dr. Nilay Gibbs INR GUIDELINES SEE BELOW Normal [facility] Comment on above: Result Comment: PET[place]A RED INR: 2.0 - 3.0 CONDITIONS NOT LISTED BELOW 2.5 - 3.5 FOR PROSTHETIC HEART VALVE REPLACEMENT 2.5 - 3.5 RECURRENT THROMBOSIS Performed By: #### P T, PTT #### [facility] [address] [address] [address] Nilay Gibbs PT Coag (PPP) [Time] 10.7 s Normal 9.0-11.6 [facility] Comment on above: Performed By: #### P T, PTT #### [facility] [address], [place] [address] Dr. Nilay Gibbs PTTon 09-27-2021 aPTT Coag (Bld) [Time] 29.1 s Normal 22.3-36.2 [facility] Comment on above: Performed By: #### P T, PTT #### [facility] [address] [address] [address] Nilay Gibbs Platelet mean volume Auto (B ld) [Entitic vol]Ordered By: Kristal Goldberg on 09-27-2021 Platelet mean volume (Bld) [Entitic vol] 8.7 fL 6.6-10.1 [facility] [place] Platelet poor plasma interna tional normalized ratio (INR) by coagulation assay (relatOrdered By: Kristal Goldberg on 09-27-2021 INR Coag (PPP) [Relative time] 1.1 {INR} [facility] [place] Comment on above: INR Therapeutic Rang e [...] 09-27-2021 Platelets (Bld) [#/Vol] 240 10*3/uL 150-450 [facility] [place] Protein Auto test strip (U) [Mass/Vol]Ordered By: Kristal Goldberg on 09-27-2021 Protein (U) [Mass/Vol] Negative Negative [facility] [place] Protein [Mass/volume] in Ser um or PlasmaOrdered By: Kristal Goldberg on 09-27-2021 Protein [Mass/Vol] 6.5 g/dL 6.1-7.9 [facility] RBC Auto (Bld) [#/Vol]Ordere d By: Kristal Goldberg on 09-27-2021 RBC (Bld) [#/Vol] 4.52 10*6/uL 3.90-5.60 [facility] Serum or plasma alanine marquez otransferase measurement without P-5'-P (enzymatic activiOrdered By: Kristal Goldberg on 09-27-2021 ALT No additional P-5'-P [Catalytic activity/Vol] 22 U/L 10-60 [facility] [place] Serum or plasma albumin/glob ulin mass ratioOrdered By: Kristal Goldberg on 09-27-2021 Albumin/Globulin [Mass ratio] 1.7 {ratio} [facility] [place] Serum or plasma alkaline kimi sphatase measurement (enzymatic activity/volume)Ordered By: Kristal Goldberg on 09-27-2021 ALP [Catalytic activity/Vol] 72 U/L 32-92 [facility] [place] Serum or plasma aspartate am inotransferase measurement (enzymatic activity/volume)Ordered By: Kristal Goldberg on 09-27-2021 AST [Catalytic activity/Vol] 24 U/L 10-42 [facility] [place] Serum or plasma calcium isabel urement (mass/volume)Ordered By: Kristal Goldberg on 09-27-2021 Calcium [Mass/Vol] 9.6 mg/dL 8.2-10.2 [facility] Serum or plasma chloride airam surement (moles/volume)Ordered By: Kristal Goldberg on 09-27-2021 Chloride [Moles/Vol] 98 mmol/L 95-114 [facility] Serum or plasma creatine kin ase MB (CKMB)/total creatine kinase (CK) ratio by calculaOrdered By: Kristal Goldberg on 09-27-2021 CK.MB Calc [Catalytic fraction] 1.7 % 0.00-2.50 [facility] [place] Serum or plasma creatine kin ase MB measurement (mass/volume)Ordered By: Kristal Goldberg on 09-27-2021 CK.MB [Mass/Vol] 3.1 ng/mL 0.6-6.3 [facility] Serum or plasma glucose isabel urement (mass/volume)Ordered By: Kristal Goldberg on 09-27-2021 Glucose [Mass/Vol] 94 mg/dL 70-100 [facility] Comment on above: ADA recommended refe [...] on 09-27-2021 Potassium [Moles/Vol] 3.9 mmol/L 3.5-5.1 [facility] [place] Serum or plasma sodium measu rement (moles/volume)Ordered By: Kristal Goldberg on 09-27-2021 Sodium [Moles/Vol] 135 mmol/L 136-146 [facility] Serum or plasma total biliru bin measurement (mass/volume)Ordered By: Kristal Goldberg on 09-27-2021 Bilirubin [Mass/Vol] 0.8 mg/dL 0.3-1.2 [facility] Serum or plasma total carbon dioxide measurement (moles/volume)Ordered By: Kristal Goldberg on 09-27-2021 CO2 [Moles/Vol] 24.8 mmol/L 22.0-30.0 [facility] Serum or plasma urea nitroge n measurement (mass/volume)Ordered By: Kristal Goldberg on 09-27-2021 Urea nitrogen [Mass/Vol] 13 mg/dL 9-23 [facility] [place] TROPONIN, HIGH SENSITIVITYon 09-27-2021 HSTROP 4.5 pg/mL Normal 4.0-76.1 [facility] Comment on above: Result Comment: CUT- OFF POINTS HAVE BEEN ESTABLISHED BASED ON THE FOURTH UNIVERSAL DEFINITIONS OF MYOCARDIAL INFARCTION. THE UPPER REFERENCE LIMIT (URL) OF TROPONIN, DEFINED THE 99TH PERCENTILE OF cTnI DISTRIBUTION IN A REFERENCE POPULATION, HAS BEEN CONFIRMED THE DECISION THRESHOLD FOR MO DIAGNOSIS. Performed By: #### C MP #### [facility] [address] [address] [address] Nilay Gibbs Troponin I.cardiac [Mass/vol ume] in Serum or Plasma by High sensitivity methodOrdered By: Kristal Goldberg on 09-27-2021 Troponin I.cardiac High sensitivity method [Mass/Vol] < 3 pg/mL 0-20 [facility] [place] Urine appearanceOrdered By: Kristal Goldberg on 09-27-2021 Appearance (U) Clear Clear [facility] [place] Urine colorOrdered By: Aurora Goldberg on 09-27-2021 Color (U) Yellow Yellow [facility] [place] Urine glucose measurement by automated test strip (mass/volume)Ordered By: Kristal Goldberg on 09-27-2021 Glucose Auto test strip (U) [Mass/Vol] Normal mg/dL Normal [facility] [place] Urine hemoglobin detection b y automated test stripOrdered By: Kristal Goldberg on 09-27-2021 Hemoglobin Auto test strip Ql (U) Negative Negative [facility] [place] Urine leukocyte esterase det ection by automated test stripOrdered By: Kristal Goldberg on 09-27-2021 Leukocyte esterase Auto test strip Ql (U) Negative Negative [facility] [place] Urine nitrite detection by a utomated test stripOrdered By: Kristal Goldberg on 09-27-2021 Nitrite Auto test strip Ql (U) Negative Negative [facility] [place] Urobilinogen Auto test strip (U) [Mass/Vol]Ordered By: Kristal Goldberg on 09-27-2021 Urobilinogen (U) [Mass/Vol] Normal mg/dL Normal [facility] [place] pH Auto test strip (U)Ordere d By: Kristal Goldberg on 09-27-2021 pH (U) 1.005 [pH] 1.001-1.030 [facility] [place] pH (U) 5.5 [pH] 5.0-9.0 [facility] [place] CT LUMBAR SPINE WO CONTRASTo n 07-12-2018 [...] MD 07/12/18 Final result Normal [facility] CT THORACIC SPINE WO CONTRAS Ton 07-12-2018 [...] MD 07/12/18 Final result Normal [facility] Vital Signs Date Time Vital Sign Value Performing Clinician Facility 11-22-2024 08:48-0500 Body height 188 cm Marina Hemmer PA Work Phone: [facility] 01-21-2024 08:48-0500 Body mass index (BMI) [Ratio] 31.35 kg/m2 Marina Hemmer PA Work Phone: [facility] 01-21-2024 08:48-0500 Body weight 110.77 kg Marina Hemmer PA Work Phone: [facility] 01-21-2024 08:48-0500 Diastolic blood pressure 101 mm[Hg] Marina Hemmer PA Work Phone: [facility] 01-21-2024 08:48-0500 Heart rate 87 /min Marina Hemmer PA Work Phone: [facility] 01-21-2024 08:48-0500 Respiratory rate 17 /min Marina Hemmer PA Work Phone: [facility] 01-21-2024 08:48-0500 SaO2% (BldA) [Mass fraction] 98 % Marina Hemmer PA Work Phone: [facility] 01-21-2024 08:48-0500 Systolic blood pressure 158 mm[Hg] Marina Hemmer PA Work Phone: [facility] 01-04-2024 08:12-0500 Body height 188 cm Delmy Boyle MD Work Phone: [facility] 01-04-2024 08:12-0500 Body mass index (BMI) [Ratio] 30.39 kg/m2 Delmy Boyle MD Work Phone: [facility] 01-04-2024 08:12-0500 Body weight 107.4 kg Delmy Boyle MD Work Phone: [facility] 01-04-2024 08:12-0500 Diastolic blood pressure 77 mm[Hg] Delmy Boyle MD Work Phone: [facility] 01-04-2024 08:12-0500 Heart rate 84 /min Delmy Boyle MD Work Phone: [facility] 01-04-2024 08:12-0500 Respiratory rate 18 /min Delmy Boyle MD Work Phone: [facility] 01-04-2024 08:12-0500 Systolic blood pressure 110 mm[Hg] Delmy Boyle MD Work Phone: [facility] 08-22-2023 12:40-0400 Body height 190.5 cm MD Leydi Aceves Work Phone: [facility] [place] 08-22-2023 12:40-0400 Body mass index (BMI) [Ratio] 31.6 kg/m2 MD Leydi Aceves Work Phone: [facility] [place] 08-22-2023 12:40-0400 Body temperature 98.6 [degF] MD Leydi Aceves Work Phone: [facility] [place] 08-22-2023 12:40-0400 Body weight 114.81 kg MD Leydi Aceves Work Phone: [facility] [place] 08-22-2023 12:40-0400 Heart rate 84 /min MD Leydi Aceves Work Phone: [facility] [place] 08-22-2023 12:40-0400 Respiratory rate 18 /min MD Leydi Aceves Work Phone: [facility] [place] 08-22-2023 12:40-0400 SaO2% (BldA) [Mass fraction] 97 % MD Leydi Aceves Work Phone: [facility] [place] 06-24-2023 14:34-0400 Body mass index (BMI) [Ratio] 29.92 kg/m2 Delmy Boyle MD Work Phone: [facility] 06-24-2023 14:34-0400 Body weight 105.69 kg Delmy Boyle MD Work Phone: [facility] 06-24-2023 14:34-0400 Diastolic blood pressure 87 mm[Hg] Delmy Boyle MD Work Phone: [facility] 06-24-2023 14:34-0400 Heart rate 89 /min Delmy Boyle MD Work Phone: [facility] 06-24-2023 14:34-0400 Respiratory rate 18 /min Delmy Boyle MD Work Phone: [facility] 06-24-2023 14:34-0400 SaO2% (BldA) [Mass fraction] 100 % Delmy Boyle MD Work Phone: [facility] 06-24-2023 14:34-0400 Systolic blood pressure 124 mm[Hg] Delmy Boyle MD Work Phone: [facility] 01-01-2022 11:34-0400 Body weight 99.79 kg Delmy Boyle MD Work Phone: [facility] 01-01-2022 11:34-0400 Diastolic blood pressure 65 mm[Hg] Delmy Boyle MD Work Phone: [facility] 01-01-2022 11:34-0400 Heart rate 65 /min Delmy Boyle MD Work Phone: [facility] 01-01-2022 11:34-0400 Systolic blood pressure 102 mm[Hg] Delmy Boyle MD Work Phone: [facility] 12-10-2021 15:30-0400 Diastolic blood pressure 71 mm[Hg] MD Leydi Aceves Work Phone: [facility] [place] 12-10-2021 15:30-0400 Heart rate 70 /min MD Leydi Aceves Work Phone: [facility] [place] 12-10-2021 15:30-0400 Respiratory rate 16 /min MD Leydi Aceves Work Phone: [facility] [place] 12-10-2021 15:30-0400 SaO2% (BldA) [Mass fraction] 98 % MD Leydi Aceves Work Phone: [facility] [place] 12-10-2021 15:30-0400 Systolic blood pressure 113 mm[Hg] MD Leydi Aceves Work Phone: [facility] [place] 12-10-2021 07:30-0400 Body temperature 98 [degF] MD Leydi Aceves Work Phone: [facility] [place] 12-08-2021 15:45-0400 Body height 190.5 cm MD Leydi Aceves Work Phone: [facility] [place] 12-08-2021 08:56-0400 Body weight 99.79 kg MD Leydi Aceves Work Phone: [facility] [place] 09-27-2021 21:38-0400 Heart rate 68 /min MD Leydi Aceves Work Phone: [facility] [place] 09-27-2021 21:30-0400 Diastolic blood pressure 79 mm[Hg] MD Leydi Aceves Work Phone: [facility] [place] 09-27-2021 21:30-0400 Respiratory rate 20 /min MD Leydi Aceves Work Phone: [facility] [place] 09-27-2021 21:30-0400 SaO2% (BldA) [Mass fraction] 100 % MD Leydi Aceves Work Phone: [facility] [place] 09-27-2021 21:30-0400 Systolic blood pressure 135 mm[Hg] MD Leydi Aceves Work Phone: [facility] [place] 09-27-2021 18:31-0400 Body height 190.5 cm MD Leydi Aceves Work Phone: [facility] [place] 09-27-2021 18:31-0400 Body temperature 98 [degF] MD Leydi Aceves Work Phone: [facility] [place] 09-27-2021 18:31-0400 Body weight 99.79 kg MD Leydi Aceves Work Phone: [facility] [place] Encounters Encounter Date Encounter Type Care Provider Facility Start: 02-02-2024 End: 02-04-2024 Refjermaine MARINELLI Work Phone: [facility] Comment on above: 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) Start: 01-25-2024 End: 02-04-2024 Refill Marina Rees PA Work Phone: [facility] Comment on above: 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) Start: 01-21-2024 End: 01-21-2024 Office outpatient visit 25 minutes Marina MARINELLI Work Phone: [facility] Comment on above: 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) (Primary Dx); Essential hypertension (CMS/HCC) Start: 01-21-2024 End: 01-21-2024 ambulatory MARINA REES Not Available Start: 01-18-2024 End: 01-19-2024 Telephone encounter Leydi Aceves MD Work Phone: [facility] Start: 01-07-2024 End: 01-07-2024 Refill Marina Rees PA Work Phone: [facility] Comment on above: 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) Start: 01-04-2024 End: 01-04-2024 Telephone encounter Delmy Boyle MD Work Phone: Rheumatology Start: 01-04-2024 End: 01-04-2024 Subsequent hospital visit by physician [facility] Work Phone: [facility] Radiology General Comment on above: 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] Start: 01-04-2024 End: 01-04-2024 ambulatory DELMY BOYLE Facility:[facility] Start: 01-04-2024 End: 01-04-2024 Patient encounter procedure Delmy Boyle MD Work Phone: Rheumatology Comment on above: Chronic tophaceous g out (Primary Dx); Stage 3 chronic kidney disease, unspecified whether stage 3a or 3b CKD (HCC); Encounter for long-term (current) use of medications; Other secondary osteoarthritis of multiple sites Start: 12-30-2023 End: 12-30-2023 ambulatory DELMY BOYLE Facility:[facility] Start: 12-30-2023 End: 12-30-2023 Clinisync Result Encounter Generic External Data Provider [facility] Unsolicited Start: 12-30-2023 End: 12-30-2023 Clinisync Result Encounter Generic External Data Provider [facility] External Department Unsolicited Start: 12-10-2023 End: 12-15-2023 Refill Marina MARINELLI Work Phone: [facility] Comment on above: 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 rheumatoid factor ([facility]) Start: 12-07-2023 End: 12-07-2023 Refill Leydi Aceves MD Work Phone: [facility] Comment on above: Anxiety Start: 11-11-2023 End: 11-12-2023 Refill Leydi Aceves MD Work Phone: [facility] Comment on above: 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 rheumatoid factor ([facility]) Start: 11-08-2023 End: 11-09-2023 Refill Leydi Aceves MD Work Phone: [facility] Comment on above: Anxiety Start: 10-11-2023 End: 10-11-2023 ambulatory LEYDI ACEVES Not Available Start: 08-22-2023 End: 08-22-2023 ambulatory MD Leydi Aceves Work Phone: [facility] Work Phone: Start: 08-22-2023 End: 08-22-2023 Patient encounter procedure MD Leydi Aceves Work Phone: [facility] Work Phone: Start: 08-16-2023 Refill Delmy newton MD Work Phone: Rheumatology Comment on above: Refill Request Start: 08-03-2023 Registered Recurring MD Leydi Aceves Work Phone: [facility] Start: 08-03-2023 ambulatory Nicola Castellon acility:[facility] Start: 07-06-2023 ambulatory Delmy newton MD Work Phone: Rheumatology Start: 07-06-2023 Patient encounter procedure Delmy Boyle MD Work Phone: Rheumatology Comment on above: Flare up Start: 07-05-2023 Refill Delmy newton MD Work Phone: Rheumatology Comment on above: Refill Request Start: 06-24-2023 End: 06-24-2023 ambulatory DELMY BOYLE Facility:[facility] Start: 06-24-2023 End: 06-24-2023 Patient encounter procedure Delmy Boyle MD Work Phone: Rheumatology Comment on above: Chronic tophaceous g out (Primary Dx); Encounter for long-term (current) use of medications; Stage 3 chronic kidney disease, unspecified whether stage 3a or 3b CKD (HCC); Idiopathic chronic gout of multiple sites with tophus Start: 06-21-2023 End: 06-21-2023 ambulatory DELMY BOYLE Facility:[facility] Start: 06-10-2023 End: 06-10-2023 ambulatory RUGEN M KETAN Not Available Start: 05-18-2023 End: 05-18-2023 ambulatory RUGEN M KETAN Not Available Start: 05-09-2023 End: 05-12-2023 ambulatory Nicola Leyva Facility:[facility] Start: 05-03-2023 End: 05-03-2023 ambulatory RUGEN M KETAN Not Available Start: 04-05-2023 Refill Rugchago M Winston M D Work Phone: [facility] Start: 03-08-2023 End: 03-08-2023 ambulatory DELMY BOYLE Facility:[facility] Start: 03-04-2023 End: 03-04-2023 ambulatory DELMY BOYLE Facility:[facility] Start: 02-24-2023 End: 02-24-2023 Emergency department patient visit Ladi Huber Facility:[facility] Start: 02-19-2023 End: 02-20-2023 [facility] Start: 11-13-2022 ambulatory Delmy newton MD Work Phone: Rheumatology Comment on above: Prednisone Start: 11-13-2022 E-mail encounter fro m caregiver Delmy Boyle MD Work Phone: [facility] Start: 11-13-2022 Telephone encounter Delmy luna MD Work Phone: [facility] [place] Comment on above: Patient Request Start: 07-24-2022 [...] chronic g out of multiple sites with tops (Primary Dx); Encounter for long-term (current) use of medications; Stage 3 chronic kidney disease, unspecified whether stage 3a or 3b CKD (HCC) Start: 12-19-2021 Refill Delmy newton MD Work Phone: Rheumatology Comment on above: Refill Request Start: 12-07-2021 End: 12-10-2021 Evaluation and management of inpatient MD Leydi Aceves Work Phone: [facility] [place] [address] Start: 12-06-2021 End: 12-07-[address] LEYDI ACEVES Facility:[facility] Start: 10-19-2021 End: 10-19-2021 ambulatory ZHAO MAURER . Facility:[facility] Start: 09-27-2021 End: 09-27-2021 Emergency department patient visit MD Leydi Aceves Work Phone: [facility]-Emergency Room Start: 09-27-2021 End: 09-27-2021 ambulatory ZHAO MAURER . Facility:[facility] Start: 08-05-2021 Orders Only Delmy newton MD Work Phone: Rheumatology Comment on above: Idiopathic chronic g [facility] of [facility] sites [facility] Start: 07-12-2018 End: 07-13-2018 Emergency department patient visit LEYDI ACEVES [facility] Procedures Date Procedure Procedure Detail Performing Clinician Start: 01-04-2024 Radex foot complete minimum 3 views Delmy Boyle MD Work Phone: Start: 12-30-2023 [facility] CBC W AUTO DIFF BLD Generic External Data Provider Start: 08-19-2020 Adult depression screening assessment Delmy Boyle MD Work Phone: Start: 07-12-2018 Ct lumbar spine w/o contrast material LEYDI KETAN Start: 07-12-2018 Ct thoracic spine w/ o contrast material LEYDI KETAN Plan of Treatment Date Care Activity Detail Author Start: 06-01-2026 Urine microalbumin profile [facility] Start: 12-29-2024 Creatinine measurement Serum Creatinine [facility] Start: 10-03-2024 End: 10-03-2024 Patient encounter procedure 10/03/2024 8:00 AM EDT Office Visit Rheumatology [address] [place], [place] [id number] [place] [address] [facility] [place], [place] [id number] Return in about 9 months (around 10/03/2024). Rheumatology Comment on above: Return in about 9 months (around ). Start: 09-25-2024 End: 12-25-2024 Alanine aminotransferase [Enzymatic activity/volume] in Serum or Plasma ALANINE AMINOTRANSFERASE / SGPT Lab Routine Chronic tophaceous gout Encounter for long-term (current) use of medications Expected: 09/25/2024 (Approximate), Expires: 12/25/2024 [facility] Comment on above: Expected: 09/25/2024 (Approximate), Expi res: 12/25/2024 Start: 09-25-2024 End: 12-25-2024 Albumin [Mass/volume] in Serum or Plasma ALBUMIN Lab Routine Chronic tophaceous gout Encounter for long-term (current) use of medications Expected: 09/25/2024 (Approximate), Expires: 12/25/2024 [facility] Comment on above: Expected: 09/25/2024 (Approximate), Expi res: 12/25/2024 Start: 09-25-2024 End: 12-25-2024 Aspartate aminotransferase [Enzymatic activity/volume] in Serum or Plasma ASPARTATE AMINOTRANSFERASE/SGOT Lab Routine Chronic tophaceous gout Encounter for long-term (current) use of medications Expected: 09/25/2024 (Approximate), Expires: 12/25/2024 [facility] Comment on above: Expected: 09/25/2024 (Approximate), Expi res: 12/25/2024 Start: 09-25-2024 End: 12-25-2024 C reactive protein [Mass/volume] in Serum or Plasma C-REACTIVE PROTEIN Lab Routine Chronic tophaceous gout Encounter for long-term (current) use of medications Expected: 09/25/2024 (Approximate), Expires: 12/25/2024 [facility] Comment on above: Expected: 09/25/2024 (Approximate), Expi res: 12/25/2024 Start: 09-25-2024 End: 12-25-2024 CBC W Auto Differential panel - Blood COMPLETE BLOOD COUNT AND DIFFERENTIAL Lab Routine Chronic tophaceous gout Encounter for long-term (current) use of medications Expected: 09/25/2024 (Approximate), Expires: 12/25/2024 [facility] Comment on above: Expected: 09/25/2024 (Approximate), Expi res: 12/25/2024 Start: 09-25-2024 End: 12-25-2024 CREATININE BLD CREATININE BLD Lab Routine Chronic tophaceous gout Encounter for long-term (current) use of medications Expected: 09/25/2024 (Approximate), Expires: 12/25/2024 [facility] Comment on above: Expected: 09/25/2024 (Approximate), Expi res: 12/25/2024 Start: 09-25-2024 End: 12-25-2024 Erythrocyte sedimentation rate SEDIMENTATION RATE, WESTERGREN Lab Routine Chronic tophaceous gout Encounter for long-term (current) use of medications Expected: 09/25/2024 (Approximate), Expires: 12/25/2024 [facility] Comment on above: Expected: 09/25/2024 (Approximate), Expi res: 12/25/2024 Start: 09-25-2024 End: 12-25-2024 Urate [Mass/volume] in Serum or Plasma URIC ACID Lab Routine Chronic tophaceous gout Encounter for long-term (current) use of medications Expected: 09/25/2024 (Approximate), Expires: 12/25/2024 [facility] Comment on above: Expected: 09/25/2024 (Approximate), Expi res: 12/25/2024 Start: 03-04-2024 Creatinine measurement Serum Creatinine [facility] Start: 01-21-2024 End: 01-21-2024 Patient encounter procedure 01/21/2024 9:00 AM EST Office Visit [facility] [address] [facility] [address] [place] [address] Marina Rees PA [address] [facility] [address] [place] [address] [facility] Start: 01-17-2024 End: 01-17-2024 Patient encounter procedure 01/17/2024 9:15 AM EST Office Visit Orthopaedics [address] [place], [place] [id number] [place] [address] [place] [address] 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] Orthopaedics Comment on above: Other secondary osteoarthritis of multip le sites [M15.3] Start: 01-11-2024 End: 01-11-2024 Patient encounter procedure 01/11/2024 11:00 AM EST Office Visit [facility] [address] [facility] [address] [place] [address] Leydi Aceves MD [address] [facility] [address] [place] [address] [facility] Start: 01-04-2024 End: 01-04-2024 Patient encounter procedure 01/04/2024 8:20 AM EST Office Visit Rheumatology [address] [place] [address] [place] [address] [place] [address] FU 6-7 MON WITH MD Rheumatology Comment on above: FU 6-7 MON WITH MD Start: 10-31-2023 Covid-19 Vaccine ( season) Covid-19 Vaccine ( season) [facility] Start: 10-31-2023 Influenza vaccination [facility] Start: 09-24-2023 End: 09-24-2023 Patient encounter procedure 09/24/2023 8:00 AM EDT Office Visit Rheumatology [address] [facility] [place] [address] Kelly Martell, MEDICAL ARTIST.TESTER [employer] [address] [facility] [place] [address] FU 3-4 MON WITH STEFANIA Rheumatology Comment on above: FU 3-4 MON WITH STEFANIA Start: 08-29-2023 Influenza vaccination Influenza Vaccine (#1) [facility] Comment on above: Postponed from 10/30/2022 (Other Patient Reasons) Start: 08-13-2023 Serum Creatinine Serum Creatinine [facility] Start: 03-01-2023 Behavioral Health Screening Behavioral Health Screening [facility] Start: 01-01-2023 BP CONTROLLED (<130/80) BP CONTROLLED (<130/80) [facility] in Start: 10-30-2022 Covid-19 Vaccine ( season) Covid-19 Vaccine () [facility] Start: 10-30-2022 Influenza vaccination [facility] Start: 07-13-2022 End: 09-12-2022 Alanine aminotransferase [Enzymatic activity/volume] in Serum or Plasma ALT/SGPT Lab 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 Encounter for long-term (current) use of medications Expected: 07/13/2022 (Approximate), Expires: 09/12/2022 [facility] Work Phone: Comment on above: Expected: 07/13/2022 (Approximate), Expi res: 09/12/2022 Start: 07-13-2022 End: 09-12-2022 Albumin [Mass/volume] in Serum or Plasma ALBUMIN BLD Lab 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 Encounter for long-term (current) use of medications Expected: 07/13/2022 (Approximate), Expires: 09/12/2022 [facility] Work Phone: Comment on above: Expected: 07/13/2022 (Approximate), Expi res: 09/12/2022 Start: 07-13-2022 End: 09-12-2022 Aspartate aminotransferase [Enzymatic activity/volume] in Serum or Plasma AST/SGOT BLD Lab 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 Encounter for long-term (current) use of medications Expected: 07/13/2022 (Approximate), Expires: 09/12/2022 [facility] Work Phone: Comment on above: Expected: 07/13/2022 (Approximate), Expi res: 09/12/2022 Start: 07-13-2022 End: 09-12-2022 C reactive protein [Mass/volume] in Serum or Plasma C-REACTIVE PROTEIN (CRP) Lab 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 Encounter for long-term (current) use of medications Expected: 07/13/2022 (Approximate), Expires: 09/12/2022 [facility] Work Phone: Comment on above: Expected: 07/13/2022 (Approximate), Expi res: 09/12/2022 Start: 07-13-2022 End: 09-12-2022 CBC W Auto Differential panel - Blood CBC + DIFF Lab 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 Encounter for long-term (current) use of medications Expected: 07/13/2022 (Approximate), Expires: 09/12/2022 [facility] Work Phone: Comment on above: Expected: 07/13/2022 (Approximate), Expi res: 09/12/2022 Start: 07-13-2022 End: 09-12-2022 CREATININE BLD CREATININE BLD Lab 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 Encounter for long-term (current) use of medications Expected: 07/13/2022 (Approximate), Expires: 09/12/2022 [facility] Work Phone: Comment on above: Expected: 07/13/2022 (Approximate), Expi res: 09/12/2022 Start: 07-13-2022 End: 09-12-2022 Erythrocyte sedimentation rate SED RATE WESTERGREN Lab 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 Encounter for long-term (current) use of medications Expected: 07/13/2022 (Approximate), Expires: 09/12/2022 [facility] Work Phone: Comment on above: Expected: 07/13/2022 (Approximate), Expi res: 09/12/2022 Start: 07-13-2022 End: 09-12-2022 Urate [Mass/volume] in Serum or Plasma URIC ACID BLOOD Lab 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 Encounter for long-term (current) use of medications Expected: 07/13/2022 (Approximate), Expires: 09/12/2022 [facility] Work Phone: Comment on above: Expected: 07/13/2022 (Approximate), Expi res: 09/12/2022 Start: 04-23-2022 SERUM CREATININE SERUM CREATININE [facility] Start: 03-01-2022 DEPRESSION ASSESSMENT DEPRESSION ASSESSMENT [facility] Start: 12-10-2021 [facility] Start: 12-07-2021 Hospital admission [facility] Start: 12-07-2021 Referral to Cardroom Drawing Runner [facility] Start: 10-30-2021 Influenza vaccination [facility] Start: 08-19-2021 Adult depression screening assessment DEPRESSION SCREENING [facility] Start: 03-01-2021 DEPRESSION ASSESSMENT DEPRESSION ASSESSMENT [facility] Start: 2009 Hepatitis B Vaccine (1 of 3 - 19+ 3-dose series) Hepatitis B Vaccine (1 of 3 - 19+ 3-dose series) [facility] Start: 02-26-2008 ANNUAL PCP TEAM CHRONIC DISEASE VISIT ANNUAL PCP TEAM CHRONIC DISEASE VISIT [facility] Start: 02-26-2008 Anxiety Screening Anxiety Screening [facility] Start: 02-26-2008 BP CONTROLLED (<130/80) BP CONTROLLED (<130/80) [facility] Start: 02-26-2008 Depression Screening Depression Screening [facility] Start: 02-26-2008 HIV SCREENING HIV SCREENING [facility] Start: 02-26-2008 HIV screening HIV Screening [facility] Start: 1995 COVID-19 VACCINE (#1) COVID-19 VACCINE (#1) [facility] Start: 1990 COVID-19 VACCINE (#1) COVID-19 VACCINE (#1) [facility] Start: 1990 HEPATITIS B (1 of 3 - 3-dose series) HEPATITIS B (1 of 3 - 3-dose series) [facility] Start: 1990 Hepatitis B Vaccine (1 of 3 - 3-dose series) Hepatitis B Vaccine (1 of 3 - 3-dose series) [facility] End: 06-23-2024 Alanine aminotransferase [Enzymatic activity/volume] in Serum or Plasma ALANINE AMINOTRANSFERASE / SGPT Lab Routine Chronic tophaceous gout Encounter for long-term (current) use of medications Every 3 months for 5 Occurrences starting 06/24/2023 until 06/23/2024 [facility] Comment on above: Every 3 months for 5 Occurrences startin g 06/24/2023 until 06/23/2024 End: 06-23-2024 Albumin [Mass/volume] in Serum or Plasma ALBUMIN Lab Routine Chronic tophaceous gout Encounter for long-term (current) use of medications Every 3 months for 5 Occurrences starting 06/24/2023 until 06/23/2024 [facility] Comment on above: Every 3 months for 5 Occurrences startin g 06/24/2023 until 06/23/2024 End: 06-23-2024 Aspartate aminotransferase [Enzymatic activity/volume] in Serum or Plasma ASPARTATE AMINOTRANSFERASE/SGOT Lab Routine Chronic tophaceous gout Encounter for long-term (current) use of medications Every 3 months for 5 Occurrences starting 06/24/2023 until 06/23/2024 [facility] Work Phone: Comment on above: Every 3 months for 5 Occurrences startin g 06/24/2023 until 06/23/2024 End: 06-23-2024 C reactive protein [Mass/volume] in Serum or Plasma C-REACTIVE PROTEIN Lab Routine Chronic tophaceous gout Encounter for long-term (current) use of medications Every 3 months for 5 Occurrences starting 06/24/2023 until 06/23/2024 [facility] Comment on above: Every 3 months for 5 Occurrences startin g 06/24/2023 until 06/23/2024 End: 06-23-2024 CBC W Auto Differential panel - Blood COMPLETE BLOOD COUNT AND DIFFERENTIAL Lab Routine Chronic tophaceous gout Encounter for long-term (current) use of medications Every 3 months for 5 Occurrences starting 06/24/2023 until 06/23/2024 [facility] Comment on above: Every 3 months for 5 Occurrences startin g 06/24/2023 until 06/23/2024 End: 06-23-2024 CREATININE BLD CREATININE BLD Lab Routine Chronic tophaceous gout Encounter for long-term (current) use of medications Every 3 months for 5 Occurrences starting 06/24/2023 until 06/23/2024 [facility] Comment on above: Every 3 months for 5 Occurrences startin g 06/24/2023 until 06/23/2024 End: 06-23-2024 Erythrocyte sedimentation rate SEDIMENTATION RATE, WESTERGREN Lab Routine Chronic tophaceous gout Encounter for long-term (current) use of medications Every 3 months for 5 Occurrences starting 06/24/2023 until 06/23/2024 [facility] Comment on above: Every 3 months for 5 Occurrences startin g 06/24/2023 until 06/23/2024 Patient Education [facility] Work Phone: Patient referral [facility] Work Phone: End: 06-23-2024 Urate [Mass/volume] in Serum or Plasma URIC ACID Lab Routine Chronic tophaceous gout Encounter for long-term (current) use of medications Every 6 months for 3 Occurrences starting 06/24/2023 until 06/23/2024 [facility] Comment on above: Every 6 months for 3 Occurrences startin g 06/24/2023 until 06/23/2024 End: 02-02-2025 XR Foot - bilateral AP and Lateral and oblique XR FOOT GENERAL 3V AP/LAT/OBL BILATERAL Radiology Routine Chronic tophaceous gout Encounter for long-term (current) use of medications 1 Occurrences starting 01/04/2024 until 02/02/2025 [facility] Work Phone: Comment on above: 1 Occurrences starting 01/04/2024 until 02/02/2025 XR Foot - bilateral AP and Lateral and oblique XR FOOT GENERAL 3V AP/LAT/OBL BILATERAL Radiology Routine Chronic tophaceous gout Encounter for long-term (current) use of medications 01/04/2024 9:48 AM EST [facility] Immunizations Immunization Date Immunization Notes Care Provider Fa [facility] 10-13-2018 influenza virus vacc ine, unspecified formulation Delmy Boyle MD Work Phone: [facility] 10-13-2002 measles, mumps and rubella virus vaccine Leydi Aceves MD Work Phone: [facility] 10-20-1993 diphtheria, tetanus toxoids and acellular pertussis vaccine, unspecified formulation Leydi Aceves MD Work Phone: [facility] 10-20-1993 haemophilus influenz ae type b vaccine, conjugate unspecified formulation Leydi Aceves MD Work Phone: [facility] 10-20-1993 trivalent poliovirus vaccine, live, oral Leydi Aceves MD Work Phone: [facility] 07-26-1991 diphtheria, tetanus toxoids and pertussis vaccine Leydi Aceves MD Work Phone: [facility] 07-26-1991 haemophilus influenz ae type b vaccine, conjugate unspecified formulation Leydi Aceves MD Work Phone: [facility] 07-26-1991 measles, mumps and rubella virus vaccine Leydi Aceves MD Work Phone: [facility] 02-03-1991 diphtheria, tetanus toxoids and pertussis vaccine Leydi Aceves MD Work Phone: [facility] 02-03-1991 haemophilus influenz ae type b vaccine, conjugate unspecified formulation Leydi Aceves MD Work Phone: [facility] 02-03-1991 trivalent poliovirus vaccine, live, oral Leydi Aceves MD Work Phone: [facility] 1990 diphtheria, tetanus toxoids and pertussis vaccine Leydi Aceves MD Work Phone: [facility] 1990 haemophilus influenz ae type b vaccine, conjugate unspecified formulation Leydi Aceves MD Work Phone: [facility] 1990 trivalent poliovirus vaccine, live, oral Leydi Aceves MD Work Phone: [facility] Payers Date Payer Category Payer Self-pay 2022 Private Health Insurance [employer] [id number] 2021 Medicaid [employer] [id number] 2021-Present [phone] [address] [place] [address] Medicaid [id number] 2021 Medicaid [id number] 2018 Unknown [id number] 1990 Unknown [id number] 2.16.840.1.524094.3.579.2. 173 1990 Unknown [id number] 2.16.840.1.374571.3.579.2. 593 1990 Unknown [id number] 2.16.840.1.384856.3.579.2. 593 1990 Unknown [id number] 2.16.840.1.901931.3.579.2. 593 1990 Unknown [id number] 2.16.840.1.271616.3.579.2. 593 1990 Unknown [id number] 2.16.840.1.365526.3.579.2. 593 1990 Unknown [id number] 2.16.840.1.059180.3.579.2. 593 1990 Unknown [id number] 2.16.840.1.553476.3.579.2. 593 1990 Unknown [id number] 2.16.840.1.428817.3.579.2. 593 1990 Unknown [id number] 2.16.840.1.967402.3.579.2. 593 1990 Unknown [id number] 2.16.840.1.365545.3.579.2. 593 1990 Unknown [id number] 2.16.840.1.877722.3.579.2. 727 1990 Unknown [id number] 2.16.840.1.259311.3.579.2. 1259 1990 Unknown [id number] 2.16.840.1.754569.3.579.2. 1259 1990 Unknown [id number] 2.16.840.1.444247.3.579.2. 1259 1990 Unknown [id number] 1990 Unknown [id number] 1959 Medicaid [id number] [id number] [facility] [id number] Unknown [id number] Unknown [id number] Social History Date Type Detail Facility Start: 05-04-2017 End: 01-01-2022 Tobacco smoking status [facility] Never smoked tobacco [facility] Start: 05-04-2017 End: 05-03-2023 Tobacco use and exposure User of smokeless tobacco [facility] History of tobacco use Chews Tobacco [facility] Start: 1990 Sex Assigned At Male [facility] Start: 12-08-2021 Tobacco smoking status NHIS Smoker (finding) [facility] [place] Start: 12-22-2021 End: 01-01-2022 Exposure to SARS-CoV-2 (event) Not sure [facility] Start: 08-14-2022 End: 10-10-2023 History of Social function [facility] Start: 08-14-2022 End: 10-10-2023 Tobacco use panel [facility] Adult Depression Screening Assessment 4 [facility] Start: 11-09-2019 Gender identity Identifies as male gender (finding) [facility] Start: 11-09-2019 Sexual orientation Heterosexual (finding) [facility] Start: 09-14-2022 Tobacco use and exposure Smokeless tobacco non-user [facility] Start: 02-16-2023 End: 10-11-2023 Alcohol intake Current drinker of alcohol (finding) [facility] Within the last year , have you been afraid of your partner or ex-partner? No [facility] Do you belong to any clubs or organizations such as buddhist groups, unions, fraternal or athletic groups, or [...] cups per day soda/pop [facility] Start: 02-26-2008 End: 01-11-2024 Tobacco smoking status GAIS Smokes tobacco daily [facility] Are you [...] Maybe two or three times per w [facility] Start: 02-26-2008 History of tobacco use Cigarette Smoker [facility] Goals Date Patient Goal Desired Activity /State Functional Status Date Assessment Result Facility 12-10-2021 Functional status Patient at Baseline [facility] Work Phone: 12-07-2021 Functional status Disability Sta tus Patient at Baseline [facility] Work Phone: Mental Status Date Assessment Result Facility 12-10-2021 Cognitive function Cognitive Sta tus Patient at Baseline [facility] Work Phone: Clinical Notes 04-25-2017 to 02-02-2024 Telephone Encounter - ISIS Vera - 02/02/2024 11:57 AM ESTTelephone Encounter - ISIS Vera - 02/02/2024 11:57 AM ESTTelephone Encounter - Jayne Us MA - 02/02/2024 11:35 AM EST Note Date & Type Note Facility 02-02-2024 Telephone encounter Note Pt was given a long taper just recently. If he is still having significant issues he should contact his Rheumatology for further instructions for managing the flare up. [facility] 02-02-2024 Miscellaneous Notes Pt was given a long taper just recently. If he is still having significant issues he should contact his Rheumatology for further instructions for managing the flare up. Can he be given the steroid ?? documented in this encounter [facility] 02-02-2024 Telephone encounter Note Can he be given the steroid ?? [facility] 01-21-2024 History of Present illness Narrative Images from the original note were not included. HPI ER Follow-up Additional comments: RA flare up Med Refill Additional comments: Would like a refill of Gabapentin and Tramadol Last edited by ISIS Vera on 01/21/2024 9:00 AM. Subjective Patient ID: Nick Wray is a 33 y.o. male who presents for ER F/U Nick presents today for an ER F/U on 01/10, 01/14. States he is sore all over. ER gave him 50 mg tablets of Prednisone, 5 day supply, took last dose last night. States it was helping, but has leveled off since Wed, and not getting better. Right little finger and right elbow are the worst right now. Rheumatology wants to start Krystexxa infusions every two weeks. States a doctor at [facility], where he works, drained his finger before which did provide temporary improvement in pain. Current Outpatient Medications on File Prior to Visit Medication Sig Dispense Refill [DISCONTINUED] famotidine (Pepcid) 20 MG tablet Take 20 mg by mouth in the morning and 20 mg before bedtime. allopurinol (Zyloprim) 100 MG tablet Take 100 mg by mouth Daily Take with Allopurinol 3oomg (2 tabs)=700mg total allopurinol (Zyloprim) 300 MG tablet Take 600 mg by mouth in the morning. amLODIPine (Norvasc) 10 MG tablet TAKE 1 TABLET BY MOUTH EVERY DAY FOR 100 DAYS 100 tablet 3 carvedilol (Coreg) 6.25 MG tablet TAKE 1 TABLET BY MOUTH TWICE A DAY WITH FOOD 180 tablet 3 cloNIDine (Catapres) 0.1 MG tablet TAKE 1 TABLET BY MOUTH TWICE A DAY 180 tablet 3 colchicine 0.6 MG tablet Take 1 tablet (0.6 mg) by mouth every other day 100 tablet 1 gabapentin (Neurontin) 300 MG capsule TAKE 1 CAPSULE BY MOUTH EVERY MORNING, EVERY EVENING, AND AT BEDTIME 90 capsule 4 indomethacin (Indocin) 50 MG capsule lidocaine (Lidoderm) 5 % patch Place 1 patch on the skin in the morning. QUEtiapine (SEROquel) 100 MG tablet Take 100 mg by mouth at bedtime traMADol (Ultram) 50 MG tablet Take 1 tablet (50 mg) by mouth every 12 (twelve) hours if needed for moderate pain 60 tablet 0 traZODone (Desyrel) 50 MG tablet TAKE 1 - 2 TABLETS BY MOUTH EVERYDAY AT BEDTIME NEEDED FOR SLEEP [DISCONTINUED] ALPRAZolam (Xanax) 0.5 MG tablet Take 1 tablet (0.5 mg) by mouth in the morning and 1 tablet (0.5 mg) before bedtime. 60 tablet 0 [DISCONTINUED] gabapentin (Neurontin) 300 MG capsule TAKE 1 CAPSULE BY MOUTH IN THE MORNING, EVENING AND BEFORE BEDTIME 90 capsule 4 [DISCONTINUED] oxyCODONE-acetaminophen (Percocet) 5-325 MG tablet Take 1 tablet by mouth every 6 (six) hours if needed [DISCONTINUED] predniSONE (Deltasone) 50 MG tablet No current facility-administered medications on file prior to visit. I have reviewed and reconciled the history and medication list with the patient today. No Known Allergies Social History Tobacco Use Smoking status: Every Day Current packs/day: 1.50 Average packs/day: 1.5 packs/day for 15.9 years (23.9 ttl pk-yrs) Types: Cigarettes Start date: 02/26/2008 Smokeless tobacco: Current Types: Chew Substance Use Topics Alcohol use: Yes Alcohol/week: 6.0 standard drinks of alcohol Types: 6 Cans of beer per week Comment: 2 or 3 drinks in one sitting. Maybe two or three times per w Drug use: Yes Types: Oxycodone Family History Problem Relation Name Age of Onset Rheumatic fever Mother Mom Hypertension Mother Mom COPD Mother Mom Diabetes Father Juan José Lupus Sister Lupus Sister 46 y/o when Fibromyalgia Sister Cancer Maternal Grandmother Grandparents Hypertension Maternal Grandfather Grandparents Cancer Maternal Grandfather Grandparents Hypertension Paternal Grandmother Grandparents Cancer Paternal Grandmother Grandparents Hypertension Paternal Grandfather Father Gout Other Alcohol abuse Mother's Brother Parents Arthritis Sister Elinor Depression Brother Remy Hypertension Brother Shade Past Medical History: Diagnosis Date Ankle pain 01/18/2014 wrist pain - [facility] ER Anxiety Chronic kidney disease Depression (CMS/HCC) Gout 2011 Gout [facility] observation: gout (10/26/2016),[facility] - Gout (12/2014),[facility] - Gout/RA (01/2015) Headache 09/28/2022 CT Scan of Brain [place], No acute abnormal Hypertension (CMS/HCC) Rheumatoid arthritis (CMS/HCC) Rheumatoid arthritis of multiple sites with negative rheumatoid factor (CMS/HCC) 05/10/2017 Past Surgical History: Procedure Laterality Date FRACTURE SURGERY INCISION AND DRAINAGE OF WOUND 02/15/[address] Coffman SHOULDER ARTHROSCOPY Right WISDOM TOOTH EXTRACTION 2009 Visit Vitals BP (!) 158/101 Pulse 87 Resp 17 Ht 6' 2 Wt 244 lb 3.2 oz SpO2 98% BMI 31.35 kg/m Smoking Status Every Day BSA 2.41 m Review of Systems Constitutional: Negative for chills, fatigue and fever. Respiratory: Negative for cough, shortness of breath and wheezing. Cardiovascular: Negative for chest pain, palpitations and leg swelling. Gastrointestinal: Negative for abdominal pain, constipation, diarrhea, nausea and vomiting. Musculoskeletal: Positive for arthralgias and joint swelling. Skin: Negative for rash. Objective Physical Exam Constitutional: General: He is not in acute distress. Appearance: Normal appearance. HENT: Head: Normocephalic and atraumatic. Eyes: General: No scleral icterus. Cardiovascular: Rate and Rhythm: Normal rate and regular rhythm. Heart sounds: No murmur heard. Pulmonary: Effort: Pulmonary effort is normal. No respiratory distress. Breath sounds: Normal breath sounds. No wheezing, rhonchi or rales. Musculoskeletal: General: Swelling present. Right hand: Swelling and tenderness present. Decreased range of motion. Comments: Right little finger, DIP joint markedly erythematous and swollen, painful. See photo. Skin: General: Skin is warm and dry. Neurological: General: No focal deficit present. Mental Status: He is alert and oriented to person, place, and time. Psychiatric: Mood and Affect: Mood normal. Behavior: Behavior normal. Assessment/Plan Diagnoses and all orders for this visit: 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 rheumatoid factor ([facility]) - diclofenac sodium (Voltaren Arthritis Pain) 1 % gel; Apply 2 g topically in the morning and 2 g in the evening and 2 g before bedtime. - predniSONE (Deltasone) 10 MG tablet; Take 4 tablets (40 mg) by mouth Daily for 3 days, THEN 3 tablets (30 mg) Daily for 3 days, THEN 2 tablets (20 mg) Daily for 3 days, THEN 1 tablet (10 mg) Daily for 3 days. - oxyCODONE-acetaminophen (Percocet) 5-325 MG tablet; Take 1 tablet by mouth every 6 (six) hours if needed for severe pain for up to 5 days Will extend the prednisone into a taper. Reminded pt to take it with food. Did provide pt with small supply of Percocet. Advised this will be only a short term Rx for break through pain related to current flare up. Encouraged pt to restart Voltaren Gel to affected joints. He had previously been using it only as needed, not routinely. Encouraged him to start using it daily, at least a few times a day, consistently for the next 1-2 weeks to see if symptoms improve. Follow up with Rheumatology for further management. Could provide pt with referral to Ortho to have finger drained if worsens. Essential hypertension (CMS/[facility]) Patient's BP in Rheumatology office on 01/04/24 was 110/77. Encouraged him to stay hydrated, take his medications as prescribed, and recheck his BP when he goes into work. If remains elevated, he can contact the office. The patient was seen today in follow up of recent hospital ER visit. All available hospital records/labs/diagnostics were reviewed and discussed with the patient. ER discharge meds were reviewed. Any changes to plan are noted above. Follow up in about 3 months (around 04/22/2024) for Medication Follow Up. documented in this encounter [facility] 01-18-2024 Telephone encounter Note oxyCODONE-acetaminophen (Percocet) 5-325 MG tablet [facility] 01-18-2024 Miscellaneous Notes oxyCODONE-acetaminophen (Percocet) 5-325 MG tablet [facility] documented in this encounter [facility] 01-07-2024 Telephone encounter Note OARRS reviewed, Rx sent into patient's pharmacy. [facility] 01-07-2024 Miscellaneous Notes OARRS reviewed, Rx sent into patient's pharmacy. 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 Manager Chemical: ADELA Transcribe Date/Time: Jan 04 2024 10:13A Dictated by : UMA ROGERS MD This examination was interpreted and the report reviewed and electronically signed by: CHELSEA REEVES MD on Jan 04 2024 3:12PM EST [facility] 01-04-2024 Telephone encounter Note FYI- Insurance wants him to try generic Lidocaine patches for 30 days first. Please see below outcome. [facility] 01-04-2024 Miscellaneous Notes FYI- Insurance wants him to try generic Lidocaine patches for 30 days first. Please see below outcome. Nick Wray (Munoz: [id number]) ISIS Rx #: [id number] Need Help? Call us at Outcome Denied [...] of therapy with generic Lidocaine patch. [facility] Policy for Medical Necessity as posted on the [facility] website and [place] Unified Preferred Drug List criteria were reviewed and per [place] Administrative Code Rule 5160-1-01 (C) and (B), [...] through the community. Drug ZTlido 1.8% patches ePA cloud logo Form [place] Medicaid FirstBest Electronic PA Form (2016 NCPDP) Original Claim Info 75 documented in this encounter [facility] 01-04-2024 Telephone encounter Note Nick Wray (Munoz: [id number]) PA Rx #: [id number] Need Help? Call us at Outcome Denied [...] of therapy with generic Lidocaine patch. [facility] Policy for Medical Necessity as posted on the [facility] website and [facility] Preferred Drug List criteria were reviewed and per [place] Administrative Code Rule 5160-1-01 (C) and (B), [...] through the community. Drug ZTlido 1.8% patches ePA Styloola logo Form [place] Medicaid FirstBest Electronic PA Form (2016 NCPDP) Original Claim Info 75 [facility] 01-04-2024 History of Present illness Narrative Radiology [...] PATIENT PRESENTS WITH AN IMPLANTABLE OR ATTACHED RAIL BONDER: No RADIOLOGY DEPARTMENT: General X-ray: Exam(s) Completed: Lower Extremity X-Ray(s): Knee, AP / Lat / Tunne / Merchant Bilateral and Wt. Bearing and Feet, Bilateral and Wt. Bearing PERIPHERAL IV DATA: Not applicable SIGNED BY: GREGOR Uriarte) January 04, 2024 9:41 AM documented in this encounter [facility] 01-04-2024 Note HNO ID: [id number] Author: ROSALINA ROMAN RT(R) Service: Radiology Author Type: Audio Technician Type: Progress Notes Filed: 01/04/2024 09:42 Note [...] PATIENT PRESENTS WITH AN IMPLANTABLE OR ATTACHED RAIL BONDER: No RADIOLOGY DEPARTMENT: General X-ray: Exam(s) Completed: Lower Extremity X-Ray(s): Knee, AP / Lat / Tunne / Merchant Bilateral and Wt. Bearing and Feet, Bilateral and Wt. Bearing PERIPHERAL IV DATA: Not applicable SIGNED BY: GREGOR Uriarte) January 04, 2024 9:41 AM [facility] 01-04-2024 Instructions Delmy Boyle MD - 01/04/2024 [...] at your visit. documented in this encounter [facility] 01-04-2024 History of Present illness Narrative Images [...] arthritic flares once every 4 months[address] enrollment advisor [address]. Jaime in [place] who did diagnostic knee aspiration which according to patient was positive for uric acid crystals. Treated with steroids and continued allopurinol. He has not seen Dr. Jaime since 2014. In 2014, he was hospitalized in [place] for acute polyarthritis. Saw enrollment advisor while in hospital who told him that he possibly had RA. Discharged on steroids. His PCP switched him from allopurinol to Uloric Jan 2017. He also takes colchicine prn. No reduction in frequency or severity of his joint flares with Uloric. In 2016, he has been hospitalized 7-8 times for acute joint flares. Each time he is treated with steroids. Hospitalized at [facility] Apr 2017 for acute flare [...] shoulder surgery by Dr. Tc Coffey at [facility]. No post op complications. Was in [...] of gout 06/2023. He was seen in [facility] for gout flare. 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 Author Type: Physician Type: Progress Notes Filed: 01/04/2024 08:58 Note Text: DX: chronic tophaceous gout, possible seronegative RA BRIEF RHEUM HISTORY First visit with ar April 2017. Polyarthritis with several nodules mainly [...] arthritic flares once every 4 months[address] enrollment advisor [address] Jaime in [place] who did diagnostic knee aspiration which according to patient was positive for uric acid crystals. Treated with steroids and continued allopurinol. He has not seen Dr. Jaime since 2014. In 2014, he was hospitalized in [place] for acute polyarthritis. Saw enrollment advisor while in hospital who told him that he possibly had RA. Discharged on steroids. His PCP switched him from allopurinol to Uloric Jan 2017. He also takes colchicine prn. No reduction in frequency or severity of his joint flares with Uloric. In 2017, he has been hospitalized 7-8 times for acute joint flares. Each time he is treated with steroids. Hospitalized at [facility] Apr 2017 for acute flare [...] shoulder surgery by Dr. Tc Coffey at [facility]. No post op complications. Was in [...] of gout 06/2023. He was seen in [facility] for gout flare. Given steroid injection [...] Numbness Negative for: (more content not included)... [facility] 01-04-2024 Evaluation note Diagnosis Chronic tophaceous [...] of other medications documented in this encounter [facility]10-16-2024 Telephone encounter Note* Telephone Encounter - Anayeli Mosquera - 12/15/2023 1:39 PM EDT Scheduled [id number] Miscellaneous Notes* Telephone Encounter - Anayeli Mosquera [...] routine medication follow up. documented in this encounterMiss[facility] [id number] Telephone encounter Note* Telephone Encounter - Anayeli Mosquera - 12/10/2023 11:18 AM EDT Spoke with pt he'll call back this week to schedule [facility] [id number] Telephone encounter Note* Telephone Encounter - ISIS Vera - 12/10/2023 11:11 AM EDT OARRS reviewed, Rx sent into patient's pharmacy. Please help pt get set up for an appt with Dr. Aceves in December for routine medication follow up. [facility] [id number] Telephone encounter Note* Telephone Encounter - ISIS Vera - 11/12/2023 7:47 AM EDT OARRS reviewed, Rx sent into patient's pharmacy. [facility] [id number] Miscellaneous Notes* Telephone Encounter - ISIS Vera - 11/12/2023 7:47 AM EDT OARRS reviewed, Rx sent into patient's pharmacy. * Telephone Encounter - Anayeli Mosquera - 11/11/2023 2:30 PM EDT Refill traMADol (Ultram) 50 MG tablet [facility] [place] documented in this encounterMissouri Rehabilitation [id number] Telephone encounter Note* Telephone Encounter - Anayeli Mosquera - 11/11/2023 2:30 PM EDT Refill traMADol (Ultram) 50 MG tablet [facility] [id number] Telephone encounter Note* Telephone Encounter - Camilla Holt LPN - 08/18/2023 8:50 AM EDT Mychart message sent to patient informing him he will have to follow up with Dr. Aceves for tramadol or oxycodone. per provider [facility]06-19-2024 Miscellaneous Notes* Telephone Encounter - Camilla Holt LPN - 08/18/2023 8:50 AM EDT Codyhart message sent to patient informing him he [...] 08/05/2023 encounter. Please advise. [facility] Telephone encounter Note * Telephone Encounter - [...] can be forwarded to his pharmacy. Thx [facility]06-17-2024 Telephone encounter Note* Telephone Encounter - Caren Vogt LPN - 08/16/2023 1:04 PM EDT Patient requesting Tramadol refill due to flare. Updated Care Everywhere. Please see 08/05/2023 encounter. Please advise. [facility]05-09-2024 Telephone encounter Note* Telephone Encounter - Delmy Boyle MD - 07/08/2023 12:45 PM EDT Duplicate request - see other encounter. [facility]05-09-2024 Miscellaneous Notes* Telephone Encounter - Delmy Boyle MD - 07/08/2023 12:45 PM EDT Duplicate request - see other encounter. [facility] Telephone encounter Note * Telephone Encounter - Delmy Boyle MD - 07/08/2023 12:44 PM EDT Duplicate request - see other encounter. [facility]05-09-2024 Miscellaneous Notes* Telephone Encounter - Delmy Boyle MD - 07/08/2023 12:44 PM EDT Duplicate request - see other encounter. [facility] Telephone encounter Note * Telephone Encounter - [...] pharmacy and notify patient. Delmy Boyle MD [facility]05-08-2024 Miscellaneous Notes* Telephone Encounter - Delmy Boyle [...] for appointment if needed. [facility] Telephone encounter Note * Telephone Encounter - [...] to doctor. Routed message to Dr. Boyle [facility]05-08-2024 Telephone encounter Note* Telephone Encounter - Haylee Mariee - 07/07/2023 10:39 AM EDT Patient called to check on refill status. Stated he has upcoming appointments. Also had a flare up this past weekend. Please call patient to advise. T [facility]05-06-2024 Telephone encounter Note* Telephone Encounter - Caren Vogt LPN - 07/05/2023 2:07 PM EDT One time order. Patient needs to call office for appointment if needed. [facility]04-25-2024 History of Present illness Narrative* Delmy Boyle [...] arthritic flares once every 4 months[address] Saw enrollment advisor Dr. Jaime in [place] who did diagnostic knee aspiration which according to patient was positive for uric acid crystals. Treated with steroids and continued allopurinol. He has not seen Dr. Jaime since 2014. In 2014, he was hospitalized in [place] for acute polyarthritis. Saw enrollment advisor while in hospital who told him that he possibly had RA. Discharged on steroids. His PCP switched him from allopurinol to Uloric Jan 2017. He also takes colchicine prn. No reduction in frequency or severity of his joint flares with Uloric. In 2017, he has been hospitalized 7-8 times for acute joint flares. Each timehe is treated with steroids. Hospitalized at [facility] Apr 2017 for acute flare [...] shoulder surgery by Dr. Tc Coffey at [facility]. No post op complications. 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 Polyarthritis with several nodules mainly [...] arthritic flares once every 4 months[address] enrollment advisor [address] Jaime in [place] who did diagnostic knee aspiration which according to patient was positive for uric acid crystals. Treated with steroids and continued allopurinol. He has not seen Dr. Jaime since 2014. In 2014, he was hospitalized in [place] for acute polyarthritis. Saw enrollment advisor while in hospital who told him that he possibly had RA. Discharged on steroids. His PCP switched him from allopurinol to Uloric Jan 2017. He also takes colchicine prn. No reduction in frequency or severity of his joint flares with Uloric. In 2017, he has been hospitalized 7-8 times for acute joint flares. Each time he is treated with steroids. [facility] [facility] flare [...] shoulder surgery by Dr. Tc Coffey at [facility]. No post op complications. Was in [...] Eye pain, Eye r (more content not included)...[facility]04-25-2024 Instructions* Patient Instructions* Delmy Boyle MD [...] questions at your visit. documented in this encounter[facility] Telephone encounter Note * Telephone Encounter - María Sepulveda MA - 04/05/2023 8:57 AM EST Nick called leaving a stating he hurt his back over the weekend and would like to know if he canget a muscle relaxer for it or if he will need an appointment for it? [id number] Miscellaneous Notes* Telephone Encounter - María Sepulveda MA - 04/05/2023 8:57 AM EST Nick called leaving a VM stating he hurt his back over the weekend and would like to know if he canget a muscle relaxer for it or if he will need an appointment for it? documented in this encounterMissouri Rehabilitation [id number] NoteHNO ID: [id number] Author: DELMY BOYLE MD Service: ? Author [...] arthritic flares once every [address] advisor [address] Jaime in [place] who did diagnostic knee aspiration which according to patient was positive for uric acid crystals. Treated with steroids and continued allopurinol. He has not seen Dr. Jaime since 2014. In 2014, he was hospitalized in [place] for acute polyarthritis. Saw enrollment advisor while in hospital who told him that he possibly had RA. Discharged on steroids. His PCP switched him from allopurinol to Uloric Jan 2017. He also takes colchicine prn. No reduction in frequency or severity of his joint flares with Uloric. In 2017, he has been hospitalized 7-8 times for acute joint flares. Each time he is treated with steroids. Hospitalized at [facility] Apr 2017 for acute flare [...] shoulder surgery by Dr. Tc Coffey at [facility]. No post op complications. Currently on [...] or wrists but (more content not included)... [facility]09-15-2023 Miscellaneous Notes* Telephone Encounter - Delmy [...] technical difficulties and that their version of Tilckhart is down along with the phone system. He needs a refill of a tapered prednisone sent to [facility] in [place], . Please advise. Patient has been identified by name and birthdate. Duration of symptoms: N/A Person calling: self Call patient at: at home [phone] (home) [phone] (cell) Was an appointment scheduled: No Closing statement: Results or non-symptom based questions: Thank you for calling [facility], your call will be returned within the next business day. [place] documented in this encounterSelect [facility]05-01-2023 Miscellaneous Notes* Telephone Encounter - Deidre Paz [...] Days Visit Type Date Time Department [facility] MEDICAL 08/14/2022 11:40 AM [facility] REJ CBC: None on file [...] (current) use of medications documented in this encounterSelect [facility]02-01-2023 Miscellaneous Notes* Telephone Encounter - Delmy oByle MD - 04/01/2022 8:36 PM EST The [...] 365 Days Visit Type Date Time Department [facility] MEDICAL 08/14/2022 11:40 AM [facility] REJ CBC: None on file [...] (current) use of medications documented in this encounterSelect [facility]11-03-2022 Instructions* Patient Instructions* Delmy Boyle MD - [...] questions at your visit. documented in this encounterSelect [facility]11-03-2022 History of Present illness Narrative* Delmy Boyle [...] arthritic flares once every 4 [address] enrollment advisor [address] Jaime in [place] who did diagnostic knee aspiration which according to patient was positive for uric acid crystals. Treated with steroids and continued allopurinol. He has not seen Dr. Jaime since 2014. In 2014, he was hospitalized in [place] for acute polyarthritis. Saw enrollment advisor while in hospital who told him that he possibly had RA. Discharged on steroids. His PCP switched him from allopurinol to Uloric Jan 2017. He also takes colchicine prn. No reduction in frequency or severity of his joint flares with Uloric. In 2017, he has been hospitalized 7-8 times for acute joint flares. Each timehe is treated with steroids. Hospitalized at [facility] Apr 2017 for acute flare [...] shoulder surgery by Dr. Tc Coffey at [facility]. No post op complications. 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 documented in this encounterSelect [facility]10-24-2022 Miscellaneous Notes* Telephone Encounter - Delmy Boyle [...] Idiopathic chronic gout of multiple sites with [facility] Rhe[facility] Delmy Boyle MD Upcoming Rheumatology Appointments - Next 365 Days Visit Type Date Time Department [facility] MEDICAL EXT 01/01/2022 11:20 AM [facility] REJ CBC: None on file [...] Instance) Lab Orders None documented in this encounterSelect [facility]10-12-2022 Discharge summary Author Nicola pelayo [facility] December 10, 2021 10:19am Note Date/Time December 10, 2021 1 0:19am [facility] [address] [place], [place] [id number] Discharge Summary Signed Patient: Nick Wray MR#: [id number] : 1990 Acct:[id number] Age/Sex: 31 / M Adm Date: 2 Loc: Room: [address] [place] [address]: Adam Young MD Copies to: [...] called EMS and he was taken to [place] [facility] and subsequently brought here.? He says [...] No activity restrictions. 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 (insert date/time here) Intake: (Insert date/time here) Please bring a copy of your photo ID, insurance card, and proof of household income.? Psychiatry: (Insert date/time here) Group: (Insert date/time here ) ) Documented By: Nicola Leyva MD 2 1016 Signed By: <Electronically signed by Nicola Leyva MD> 12/10/21 101[address] [facility] Work Phone: 1(881) 290-957910-11-2022 Progress note Author Nicola pelayo [facility] December 09, 2021 10:42am Note Date/Time December 09, 2021 8 :48am [facility] [address] [place] [address] Psychiatry Progress Note Signed Patient: Nick Wray MR#: [id number] : 1990 Acct:[id number] Age/Sex: 31 / M Adm Date: 2 Loc: Room: [address] [place] [address] Type : ADM IN Attending Dr: Adam [...] signed by Nicola Leyva MD> 12/09/21 1042 [facility] Work Phone: 1(275) 884-842310-10-2022 History and physical note Author Nicola pelayo [facility] December 08, 2021 1:32pm Note Date/Time December 08, 2021 1 2:43pm [facility] [address] [place] [address] Psychiatry H&P Signed Patient: Nick Wray MR#: [id number] : 1990 Acct:[id number] Age/Sex: 31 / M Adm Date: 2 Loc: Room: [address] [place] [address] Type: ADM IN Attending Dr: Adam Young [...] called EMS and he was taken to [facility] and subsequently brought here. 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 Review of symptoms: Constitutional: Denies [...] signed by Nicola Leyva MD> 12/08/21 13[address] [facility] Work Phone: [phone]) 617-846702-25-2018 History of Past illness Narrative* Problem Noted Date Resolved Date Rheumatoid arthritis flare 04/25/201705/10 documented as of this encounter (statuses as of 08/05/2021) [address]25-2018 History of Past illness Narrative* Problem Noted Date Resolved Date Rheumatoid arthritis flare 04/25/201705/10 documented as of this encounter (statuses as of 12/22/2021) [address]25-2018 History of Past illness Narrative* Problem Noted Date Resolved Date Rheumatoid arthritis flare 04/25/201705/10 documented as of this encounter (statuses as of 01/01/2022) [address]25-2018 History of Past illness Narrative* Problem Noted Date Resolved Date Rheumatoid arthritis flare 04/25/201705/10 documented as of this encounter (statuses as of 04/02/2022) [address]25-2018 History of Past illness Narrative* Problem Noted Date Resolved Date Rheumatoid arthritis flare 04/25/201705/10 documented as of this encounter (statuses as of 06/30/2022) [address]25-2018 History of Past illness Narrative* Problem Noted Date Diagnosed Date Resolved Date Rheumatoid arthritis flare 04/25/2017 0 05/10/2017 documented as of this encounter (statuses as of 11/14/2022) [address]25-2018 History of Past illness Narrative* Problem Noted Date Diagnosed Date Resolved Date Rheumatoid arthritis flare 04/25/2017 0 05/10/2017 documented as of this encounter (statuses as of 11/14/2022) [facility] Diagnosis 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) documented in this encounter [facility] noteNo assessment information availablePe[facility] Work Phone: evaluation note* Diagnosis Onset Date Resolution Status Major depressive disorder, recurrent, moderate acute [facility] Work Phone: evaluation note* Diagnosis 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) documented in this encounter [facility]* Diagnosis Idiopathic chronic gout of multiple sites with tophus- Primary Chronic gouty arthropathy with tophus (tophi) Encounter for long-term (current) use of medications Encounter for long-term (current) use of other medications Stage 3 chronic kidney disease, unspecified whether stage 3a or 3b CKD (HCC) documented in this encounter [facility]* Diagnosis 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) documented in this encounter [facility]* Diagnosis 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) documented in this encounter [facility]* Diagnosis Other chronic pain- Primary documented in this encounter [facility]* Diagnosis Chronic tophaceous gout- Primary Chronic gouty arthropathy with tophus (tophi) Encounter for long-term (current) use of medications Encounter for long-term (current) use of other medications Stage 3 chronic kidney disease, unspecified whether stage 3a or 3b CKD (HCC) 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) documented in this encounter [facility]* Diagnosis 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) documented in this encounter [facility]* Diagnosis 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) documented in this encounter [facility]* Diagnosis Onset Date Resolution Status Acute pansinusitis acute [facility] Work Phone: Evaluation note* Diagnosis Anxiety Anxiety state, unspecified documented in this encounter [facility]* Diagnosis Anxiety- Primary Anxiety state, [...] rheumatoid factor (CMS/HCC) documented in this encounter [facility]* 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 Encounter for long-term (current) use of medications Encounter for long-term (current) use of other medications documented in this encounter [facility]* Diagnosis Anxiety- Primary Anxiety state, unspecified [...] rheumatoid factor (CMS/HCC) [facility]* Diagnosis Anxiety- Primary Anxiety state, [...] involving multiple sites with positive rheumatoid factor (CMS/HCC)- Primary Essential hypertension (CMS/HCC) Unspecified essential hypertension [facility]* Diagnosis Anxiety- Primary Anxiety state, [...] rheumatoid factor (CMS/HCC) [facility]* Diagnosis Anxiety- Primary Anxiety state, [...] rheumatoid factor (CMS/HCC) documented in this encounter [facility]* Diagnosis 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) documented in this encounter [facility] HealthcareEvaluation note* Diagnosis Anxiety Anxiety state, unspecified [facility] Dis[facility] instructions Additional Instructions Rest Apply ice to affected area Avoid electronics Follow-up with neurology on Wednesday Tylenol Motrin if needed for discomfort Return here if you develop any numbness, tingling, unilateral weakness, unsteady gait, confusion or any other concernsNor[facility] Work Phone: Hospital Discharge instructions Additional Instructions Regular diet. No activity restrictions.[facility] Work Phone: Reason for referral (narrative)* Diagnostic Procedure Only (Routine) - Closed Specialty Diagnoses / Procedures Referred By Contkeenan harmon Referred To Contact XR IMAGING Diagnoses Chronic tophaceous gout Encounter for long-term (current) use of medications Procedures XR FOOT GENERAL 3V AP/LAT/OBL BILATERAL RADEX FOOT COMPLETE MINIMUM [address] [place] [address] [place] [address] [place] [address] Referral ID Status Reason Start Date Expiration Date V isits Requested Visits Authorized [id number] Closed Auto-Generate d Referral 01/04/2024 02/02/2025 1 1 * Diagnostic Procedure Only (Routine) - Closed Specialty Diagnoses / Procedures Referred By Contac t Referred To Contact XR IMAGING Diagnoses 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 Procedures XR KNEE GENERAL 4V AP BOTH/PA BOTH/LAT/MERC BILATERAL RADIOLOGIC EXAM KNEE COMPLETE 4/[place] [address] [place] [address] [place] [address] Referral ID Status Reason Start Date Expiration Date V isits Requested Visits Authorized [id number] Closed Auto-Generate d Referral 01/04/2024 02/02/2025 1 1 [facility] Summary Purpose Family History Relationship Condition Age at Onset Recorded Date/T vish father Hypertension Unknown Ingrown nail Unknown Not Specified Hypertension Unknown brother Hypertension Unknown sister Hypertension Unknown Depression Unknown family member Gout Unknown Suicide Unknown Advance Directives Documents on File Type Date 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 Advance Directive(s) 04/25/2017 12:32 PM [...] Referral Specialty Diagnoses / Procedures Referred By Destiny t Referred To Contact Diagnoses Stage 3 chronic kidney disease, unspecified whether stage 3a or 3b CKD (HCC) Other secondary osteoarthritis of multiple [place] [id number] [place] [id number] Referral ID Status Reason Start Date Expiration Date Visits Re quested Visits Authorized [id number] Closed 01/04/2024 03/04/2024 1 1 Specialty Diagnoses / Procedures Referred By Contkeenan t Referred To Contact XR IMAGING Diagnoses 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 Procedures XR KNEE GENERAL 4V AP BOTH/PA BOTH/LAT/MERC BILATERAL RADIOLOGIC EXAM KNEE COMPLETE 4/[place] [address] [place] [address] [place] [address] Referral ID Status Reason Start Date Expiration Date V isits Requested Visits Authorized [id number] Closed Auto-Generate d Referral 01/04/2024 02/02/2025 1 1 Specialty Diagnoses / Procedures Referred By Contac t Referred To Contact Orthopedics Diagnoses Other secondary osteoarthritis of multiple sites Procedures CONSULT TO ORTHOPAEDICS OFFICE/OUTPATIENT [facility] MDM 60 [place] [address] [place] [address] Referral ID Status Reason Start Date Expiration Date Visits Requested Visits Authorized [id number] Authorized PCP Requested Referral 01/04/2024 04/03/2024 1 1 Specialty Diagnoses / Procedures Referred By Contac t Referred To Contact XR IMAGING Diagnoses Chronic tophaceous gout Encounter for long-term (current) use of medications Procedures XR FOOT GENERAL 3V AP/LAT/OBL BILATERAL RADEX FOOT COMPLETE MINIMUM 3 [place] [address] [place] [address] [place] [address] Referral ID Status Reason Start Date Expiration Date V isits Requested Visits Authorized [id number] Closed Auto-Generate d Referral 01/04/2024 02/02/2025 1 [...] DATE CREATED AUTHOR AUTHOR'S ORGANIZ ATION 11/11/2021 [facility] dical Specialist DATE CREATED AUTHOR AUTHOR'S ORGANIZ ATION 08/07/2022 [facility] DATE CREATED AUTHOR AUTHOR'S ORGANIZ ATION 2023 [facility] DATE CREATED AUTHOR AUTHOR'S ORGANIZ ATION 02/26/2023 [facility] DATE CREATED AUTHOR AUTHOR'S ORGANIZ ATION 09/13/2023 [facility] DATE CREATED AUTHOR AUTHOR'S ORGANIZ ATION 01/05/2024 [facility] DATE CREATED AUTHOR AUTHOR'S ORGANIZ ATION 01/08/2024 [facility] DATE CREATED AUTHOR AUTHOR'S ORGANIVETT ATION 01/24/2024 [facility] dical Specialists EPIC Source Comments (unrecognize d section and content) In the event this informatio n is protected by the Federal Confidentiality of Alcohol and Drug Abuse Patient Records regulations: The Federal rules restrict any use of the information to criminally investigate or prosecute any alcohol or drug abuse patient.[facility]onIn the event this information is protected by the Federal Confidentiality of Alcohol and Drug Abuse Patient Records regulations: The Federal rules restrict any use of the information to criminally investigate or prosecute any alcohol or drug abuse patient.[facility]onIn the event this information is protected by the Federal Confidentiality of Alcohol and Drug Abuse Patient Records regulations: The Federal rules restrict any use of the information to criminally investigate or prosecute any alcohol or drug abuse patient.[facility]onIn the event this information is protected by the Federal Confidentiality of Alcohol and Drug Abuse Patient Records regulations: The Federal rules restrict any use of the information to criminally investigate or prosecute any alcohol or drug abuse patient.[facility]onIn the event this information is protected by the Federal Confidentiality of Alcohol and Drug Abuse Patient Records regulations: The Federal rules restrict any use of the information to criminally investigate or prosecute any alcohol or drug abuse patient.[facility]onIn the event this information is protected by the Federal Confidentiality of Alcohol and Drug Abuse Patient Records regulations: The Federal rules restrict any use of the information to criminally investigate or prosecute any alcohol or drug abuse patient.[facility]onIn the event this information is protected by the Federal Confidentiality of Alcohol and Drug Abuse Patient Records regulations: The Federal rules restrict any use of the information to criminally investigate or prosecute any alcohol or drug abuse patient.[facility]onIn the event this information is protected by the Federal Confidentiality of Alcohol and Drug Abuse Patient Records regulations: The Federal rules restrict any use of the information to criminally investigate or prosecute any alcohol or drug abuse patient.[facility]onIn the event this information is protected by the Federal Confidentiality of Alcohol and Drug Abuse Patient Records regulations: The Federal rules restrict any use of the information to criminally investigate or prosecute any alcohol or drug abuse patient.[facility]onIn the event this information is protected by the Federal Confidentiality of Alcohol and Drug Abuse Patient Records regulations: The Federal rules restrict any use of the information to criminally investigate or prosecute any alcohol or drug abuse patient.[facility]onIn the event this information is protected by the Federal Confidentiality of Alcohol and Drug Abuse Patient Records regulations: The Federal rules restrict any use of the information to criminally investigate or prosecute any alcohol or drug abuse patient.[facility]onIn the event this information is protected by the Federal Confidentiality of Alcohol and Drug Abuse Patient Records regulations: The Federal rules restrict any use of the information to criminally investigate or prosecute any alcohol or drug abuse patient.[facility]onIn the event this information is protected by the Federal Confidentiality of Alcohol and Drug Abuse Patient Records regulations: The Federal rules restrict any use of the information to criminally investigate or prosecute any alcohol or drug abuse patient.[facility]onIn the event this information is protected by the Federal Confidentiality of Alcohol and Drug Abuse Patient Records regulations: The Federal rules restrict any use of the information to criminally investigate or prosecute any alcohol or drug abuse patient.[facility]onIn the event this information is protected by the Federal Confidentiality of Alcohol and Drug Abuse Patient Records regulations: The Federal rules restrict any use of the information to criminally investigate or prosecute any alcohol or drug abuse patient.[facility] Care Teams (unrecognized sec tion and content) [...] August 22, 2023 End: August 22, 2023 Innovation Analyst Relationship Specialty Start Date End Date Winston Leydi Temple PCP - General Family Practice 01/07/15 Team Status: Inactive Member Role Status Dates Leydi Aceves MD Primary Care Provider Active Juvenal Smith MD Emergency Provider Active Team Status: Inactive Member Role Status Dates Leydi Aceves MD Primary Care Provider Active Adam Young MD Admit Provider, Attending Provider Active Innovation Analyst Relationship Specialty Start Date End Date Leydi Aceves PCP - General Family Medicine 01/07/15 Innovation Analyst Relationship Specialty Start Date End Date KetanLeydi PCP - General Family Medicine 01/07/15 Innovation Analyst Relationship Specialty Start Date End Date KetanLeydi PCP - General Family Medicine 01/07/15 Innovation Analyst Relationship Specialty Start Date End Date KetanLeydi PCP - General Family Medicine 01/07/15 Innovation Analyst Relationship Specialty Start Date End Date Leydi Aceves MD PCP - General Family Medicine 01/07/15 Innovation Analyst Relationship Specialty Start Date End Date Leydi Aceves MD PCP - General Family Medicine 01/07/15 Innovation Analyst Relationship Specialty Start Date End Date Leydi Aceves MD [address] [facility] [address] [place] [address] PCP - General Family [facility] 07/29/22 Leydi Aceves MD [address] [facility] [address] [place] [address] PCP - [facility] 05/30/22 Innovation Analyst Relationship Specialty Start Date End Date Leydi Aceves MD [address] [address] [facility] [address] [place] [address] PCP - General Family [facility] 07/29/22 Leydi Aceves MD [address] [facility] [address] [place] [address] PCP - [facility] 05/30/22 Innovation Analyst Relationship Specialty Start Date End Date Leydi Aceves MD PCP - General Family Medicine 01/07/15 Innovation Analyst Relationship Specialty Start Date End Date Leydi Aceves MD PCP - General Family Medicine 01/07/15 Innovation Analyst Relationship Specialty Start Date End Date Leydi Aceves MD PCP - General Family Medicine 01/07/15 Innovation Analyst Relationship Specialty Start Date End Date Leydi Aceves MD [address] [facility] [address] [place] [address] PCP - General Family Medicine 07/29/22 Leydi Aceves MD [address] [place] [address] PCP - [facility] 05/30/22Wednesday, [place], [employer] [address] [place] [address] Licensed Practical Nurse Family Medicine 06/04/23 Innovation Analyst Relationship Specialty Start Date End Date Leydi Aceves MD [address] [place] [address] PCP - General Family [facility] 07/29/22 Leydi Aceves MD [address] [place] [address] PCP [facility] 05/30/22Wednesday, [place], [employer] [address] [place] [address] Licensed Practical Nurse Family Medicine 06/04/23 Innovation Analyst Relationship Specialty Start Date End Date Leydi Aceves MD [address] [place] [address] PCP - General Family Medicine 07/29/22 Leydi Aceves MD [address] [place] [address] PCP - [facility] 05/30/22Wednesday, [place], [employer] [address] [place] [address] Licensed Practical Nurse Family Medicine 06/04/23 Innovation Analyst Relationship Specialty Start Date End Date Leydi Aceves MD PCP - General Family Medicine 01/07/15 Innovation Analyst Relationship Specialty Start Date End Date Leydi Aceves MD PCP - General Family Medicine 01/07/15 Innovation Analyst Relationship Specialty Start Date End Date Leydi Aceves MD PCP - General [facility] Medicine 01/07/15 Innovation Analyst Relationship Specialty Start Date End Date Leydi Aceves MD [address] [place] [address] [address] - [facility] 07/29/22 Leydi Aceves MD [address] [place] [address] PCP - [facility] 05/30/22Wednesday, [place], [employer] [address] [place] [address] Licensed Practical Nurse [facility] Medicine 06/04/23 Innovation Analyst Relationship Specialty Start Date End Date Leydi Aceves MD [address] [place] [address] [address] - [facility] 07/29/22 Leydi Aceves MD [address] [place] [address] PCP - [facility] 05/30/22Wednesday, [place], [employer] [address] [place] [address] Licensed Practical Nurse Family Medicine 06/04/23 Innovation Analyst Relationship Specialty Start Date End Date Leydi Aceves MD [address] [place] [address] PCP - General [facility] 07/29/22 Leydi Aceves MD [address] [place] [address] PCP - [facility] 05/30/22Wednesday, [place], [employer] [address] [place] [address] Licensed Practical Nurse Family Medicine 06/04/23 Innovation Analyst Relationship Specialty Start Date End Date Leydi Aceves MD [address] [place] [address] [address] - [facility] 07/29/22 Leydi Aceves MD [address] [place] [address] PCP [facility] 05/30/22Wednesday, [place], [employer] [address] [place] [address] Licensed Practical Nurse Family Medicine 06/04/23 Innovation Analyst Relationship Specialty Start Date End Date Leydi Aceves MD [address] [place] [address] PCP - [facility] 07/29/22 Leydi Aceves MD [address] [place] [address] PCP [facility] 05/30/22Wednesday, [place]ma, [employer] [address] [place] [address] Licensed Practical Nurse Family Medicine 06/04/23 Innovation Analyst Relationship Specialty Start Date End Date Leydi Aceves MD [address] [place] [address] PCP - General Family Medicine 07/29/22 Leydi Aceves MD [address] [place] [address] PCP - [facility] 05/30/22Wednesday, [place], [employer] [address] [place] [address] Licensed Practical Nurse Family Medicine 06/04/23 Innovation Analyst Relationship Specialty Start Date End Date Leydi Aceves MD [address] [place] [address] PCP - General Family [facility] 07/29/22 Leydi Aceves MD [address] [place] [address] PCP - [facility] 05/30/22Wednesday, Alma [employer] [address] [place] [address] Licensed Practical Nurse Family Medicine 06/04/23 Goals [...] KNEE COMPLETE 4/[place] [address] [place] [address] [place] [address] Referral ID Status Reason Start Date Expiration Date V isits Requested Visits Authorized [id number] Closed Auto-Generate d Referral 01/04/2024 02/02/2025 1 1 Reason Onset Date Comments Med Refill 01/07/2024 Reason Comments ER Follow-up RA flare up Med Refill Would like a refill of Gabapentin and Tramadol Reason Onset Date Comments Med Refill 01/25/2024 Reason Onset Date Comments Med Refill 02/02/2024 Reason Onset Date Comments Med Refill 11/11/2023 Reason Onset Date Comments Med Refill 11/08/2023 FOR RECORDS PERTAINING TO PATIENTS WHO ARE [...] BE BASED ON THE PRIMARY CLINICAL RECORDS. [employer] provides no warranty or guarantee of the accuracy or completeness of information in this document.
--- NOTE | 2024-04-15 14:09 | XR_ITS ---
The [address] [address] Patient Name: TRU CARDOZA MRN: [id number] date: 1990 Sex: M Assigned Patient Location: ED.MAIN Current Patient Location: ER Accession/Order Number: [id number] Exam Date: 04/15/2024 14:18 Report Date: 04/15/2024 15:24 At the request of: MARIA ELENA CLARK Procedure: XR hand RT min 3V HISTORY: Index DIP swollen, history of RA COMPARISON: 02/04/2024 TECHNIQUE: 3 views of the right hand. FINDINGS: BONE DENSITY: Normal. JOINTS: No acute abnormality. Redemonstrated periarticular lucency involving the distal aspect of the third proximal phalanx. FRACTURE: No acute fracture. DISLOCATION: None. SOFT TISSUES: No radiopaque foreign body. There is soft tissue swelling surrounding the second DIP and third PIP joints. XR/XR hand RT min 3V IMPRESSION: 1. Soft tissue swelling surrounding the second DIP and third PIP joints consistent with rheumatoid arthritis. No acute osseous or joint abnormality. 2. Redemonstrated periarticular lucency of the third PIP joint consistent with rheumatoid arthritis. Electronically authenticated by: GREGORY SOUZA Date: 04/15/2024 15:24
--- NOTE | 2024-04-15 14:11 | ED.EXTPRO1 ---
HPI - Extremity Problem General Chief complaint: Extremity Problem, Nontraumatic Stated complaint: UPPER EXTREMITY PAIN AND SWELLING Time Seen by Provider: 04/15/24 13:48 Source: patient Mode of arrival: walk-in Limitations: no limitations History of Present Illness HPI Narrative: 34-year-old male presents for swelling to his right index finger DIP joint. It started 2 days ago and has gotten worse. He has a history of rheumatoid arthritis and gout. There was no trauma and he has not had a fever. No drainage. Related Data Home Medications ?Medication ?Instructions ?Recorded ?Confirmed amlodipine 10 mg tablet 10 mg PO QDAY 08/31/22 04/15/24 clonidine HCl 0.1 mg tablet 0.1 mg PO BID 08/31/22 04/15/24 colchicine 0.6 mg tablet 0.6 mg PO .every other 08/31/22 04/15/24 gabapentin 300 mg capsule 300 mg PO TID 02/15/23 04/15/24 (Neurontin) allopurinol 300 mg tablet 800 mg PO .evening 06/03/23 04/15/24 prednisone 10 mg tablet 10 mg PO DAILY 04/15/24 04/15/24 Previous Rx's ?Medication ?Instructions ?Recorded oxycodone-acetaminophen 5 mg-325 1 tab PO Q6H PRN pain 5 days #20 04/15/24 mg tablet (Percocet) tabs prednisone 10 mg tablet See Rx Instructions .Route 04/15/24 .COMPLEX #30 tabs Allergies Allergy/AdvReac Type Severity Reaction Status Date / Time No Known Drug Allergies Allergy Verified 02/04/24 18:20 Review of Systems ROS Narrative A ten point review of systems is negative except as noted above. PFSH PFSH Medical History Acute hypernatremia ?E87.0 - Hyperosmolality and hypernatremia (ICD-10) Altered mental status ?R41.82 - Altered mental status, unspecified (ICD-10) Sepsis ?A41.9 - Sepsis, unspecified organism (ICD-10) Acute kidney injury ?N17.9 - Acute kidney failure, unspecified (ICD-10) MONO (generalized anxiety disorder) ?F41.1 - Generalized anxiety disorder (ICD-10) Rheumatoid arthritis ?M06.9 - Rheumatoid arthritis, unspecified (ICD-10) Benign essential hypertension ?I10 - Essential (primary) hypertension (ICD-10) Gouty arthritis ?M10.9 - Gout, unspecified (ICD-10) Acute postoperative pain of knee ?G89.18 - Other acute postprocedural pain (ICD-10) ?M25.569 - Pain in unspecified knee (ICD-10) Visit for wound check ?Z51.89 - Encounter for other specified aftercare (ICD-10) Septic prepatellar bursitis of right knee ?M71.161 - Other infective bursitis, right knee (ICD-10) Acute viral syndrome ?B34.9 - Viral infection, unspecified (ICD-10) Diarrhea ?R19.7 - Diarrhea, unspecified (ICD-10) Rheumatoid arthritis flare ?M06.9 - Rheumatoid arthritis, unspecified (ICD-10) Polyarthralgia ?M25.50 - Pain in unspecified joint (ICD-10) Rheumatoid arthritis flare ?M06.9 - Rheumatoid arthritis, unspecified (ICD-10) Weakness ?R53.1 - Weakness (ICD-10) Mild shortness of breath ?R06.02 - Shortness of breath (ICD-10) Headache ?R51.9 - Headache, unspecified (ICD-10) Polyarthralgia ?M25.50 - Pain in unspecified joint (ICD-10) Flare of rheumatoid arthritis ?M06.9 - Rheumatoid arthritis, unspecified (ICD-10) Arthralgia ?M25.50 - Pain in unspecified joint (ICD-10) Drug-seeking behavior ?Z76.5 - Malingerer [conscious simulation] (ICD-10) Surgical History Total knee replacement status ?Z96.659 - Presence of unspecified artificial knee joint (ICD-10) H/O shoulder surgery ?Z98.890 - Other specified postprocedural states (ICD-10) Social History (Updated 04/20/23 @ 23:15 by April Sierra RN) Smoking status: Never smoker Nicotine containing products detail: chew tobacco Highest level of school completed/degree received: decline to answer Little interest or pleasure in doing things: not at all Feeling down, depressed, or hopeless: not at all Exam Narrative Exam Narrative: Nurses note and vital signs reviewed and patient is not hypoxic. General: The patient appears in no apparent distress. Patient is resting comfortably on cart. Skin: Warm, dry, no pallor noted. There is no rash noted. Head: Normocephalic, atraumatic Eye: Normal conjunctiva, no drainage Ears, Nose, Mouth, and Throat: oral mucosa is moist. Nares patent. Cardiovascular: Regular Rate and Rhythm Respiratory: Patient is in no distress, no accessory muscle use, lungs are clear to auscultation, no wheezing, rales or rhonchi Back: non-tender GI: Soft and nontender Musculoskeletal: Right index finger DIP is swollen. Neurological: A&O, normal speech Psychiatric: Cooperative Constitutional Vital Signs, click to edit/add: Last Vital Signs Temp 98.3 F 04/15/24 15:16 Pulse 88 04/15/24 15:16 Resp 14 04/15/24 15:16 BP 135/97 H 04/15/24 15:16 Pulse Ox 97 04/15/24 15:16 O2 Del Method Room Air 04/15/24 15:16 Course Vital Signs Vital signs: Vital Signs Temperature 97.7 F 04/15/24 13:39 Pulse Rate 117 H 04/15/24 13:39 Respiratory Rate 18 04/15/24 13:39 Blood Pressure 151/102 H 04/15/24 13:39 Pulse Oximetry 97 04/15/24 13:39 Oxygen Delivery Method Room Air 04/15/24 13:39 Temperature 98.3 F 04/15/24 15:16 Pulse Rate 88 04/15/24 15:16 Respiratory Rate 14 04/15/24 15:16 Blood Pressure 135/97 H 04/15/24 15:16 Pulse Oximetry 97 04/15/24 15:16 Oxygen Delivery Method Room Air 04/15/24 15:16 MDM - Extremity (Nontraumatic) MDM Narrative Medical decision making narrative: ESR is not significantly elevated and neither is the CRP. I do not suspect an infection. His symptoms are consistent with rheumatoid arthritis flare and he is given Percocet here and prescribed prednisone and Percocet. 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 Treatment diagnosis and follow-up were discussed with the patient. I have no clinical suspicion of a septic joint. Differential Diagnosis Differential diagnosis: Likely other (Rheumatoid arthritis, injury, septic joint) Lab Data Labs: Lab Results 04/15/24 Range/Units 14:10 WBC 12.7 H (4.0-11.0) 10^3/uL RBC 5.21 (4.70-6.10) 10^6/uL Hgb 15.5 (14.0-18.0) g/dL Hct 45.7 (42.0-54.0) % MCV 87.7 (80.0-94.0) fL MCH 29.8 (25.9-34.0) pg MCHC 33.9 (29.9-35.2) g/dL RDW 13.2 (11.0-15.0) % Plt Count 305 (150-450) 10^3/uL MPV 10.6 (9.5-13.5) fL Neut % (Auto) 76.1 H (43.0-75.0) % Lymph % (Auto) 16.5 L (20.5-60.0) % Martin % (Auto) 5.8 (1.7-12.0) % Eos % (Auto) 0.8 L (0.9-7.0) % Baso % (Auto) 0.3 (0.2-2.0) % Neut # (Auto) 9.7 H (1.4-6.5) 10^3/uL Lymph # (Auto) 2.1 (1.2-3.8) 10^3/uL Martin # (Auto) 0.7 (0.3-0.8) 10^3/uL Eos # (Auto) 0.1 (0.0-0.7) 10^3/uL Baso # (Auto) 0.0 (0.0-0.1) 10^3/uL Abs Immat Gran (auto) 0.06 H (0.00-0.03) 10^3/uL Imm/Tot Granulo (auto) 0.5 (0.0-0.5) % ESR 22 H (<=15) mm/hr Sodium 144 (136-145) mmol/L Potassium 4.0 (3.5-5.1) mmol/L Chloride 106 (98-107) mmol/L Carbon Dioxide 27.4 (21.0-32.0) mmol/L Anion Gap 14.6 BUN 15.0 (7.0-18.0) mg/dL Creatinine 1.48 H (0.70-1.30) mg/dL Est GFR ( Amer) >60 (>=60 mL/min/1.73m^2) Est GFR (Non-Af Amer) 54 L (>=60 mL/min/1.73m^2) BUN/Creatinine Ratio 10.1 Glucose 111 H (74-106) mg/dL Calcium 9.7 (8.5-10.1) mg/dL C-Reactive Protein 0.62 H (<=0.50) mg/dL Imaging Data Right hand: Radiologist's impression: ITS Impressions Hand X-Ray 04/15/24 14:09 IMPRESSION: 1. Soft tissue swelling surrounding the second DIP and third PIP joints consistent with rheumatoid arthritis. No acute osseous or joint abnormality. 2. Redemonstrated periarticular lucency of the third PIP joint consistent with rheumatoid arthritis. Electronically authenticated by: GREGORY SOUZA Date: 04/15/2024 15:24 Discharge Plan Discharge Chief Complaint: Extremity Problem, Nontraumatic Clinical Impression: Rheumatoid arthritis flare Patient Disposition: Home, Self-Care Time of Disposition Decision: 15:35 Condition: Good Mode of Transportation: Private Vehicle Prescriptions / Home Meds: New oxycodone-acetaminophen [Percocet] 5-325 mg tablet 1 tab PO Q6H PRN (Reason: pain) 5 Days Qty: 20 0RF prednisone 10 mg tablet See Rx Instructions .ROUTE .COMPLEX Qty: 30 0RF Rx Instructions: 4 by mouth daily for three days then 3 by mouth daily for three days then 2 by mouth daily for three days then 1 by mouth daily for three days No Action gabapentin [Neurontin] 300 mg capsule 300 mg PO TID allopurinol 300 mg tablet 800 mg PO .evening Patient Comments: 700 mg total daily. colchicine 0.6 mg tablet 0.6 mg PO .every other clonidine HCl 0.1 mg tablet 0.1 mg PO BID amlodipine 10 mg tablet 10 mg PO QDAY prednisone 10 mg tablet 10 mg PO DAILY Print Language: Slovenian Instructions: Rheumatoid Arthritis (ED) Additional Instructions: Follow-up with your piano machine operator or PCP. Referrals: LEYDI ACEVES [Primary Care Provider] - 1 week
[2024-04-15 14:25] LABS: Basophils Percent Auto 0.3 % (0.2-2.0); Eosinophils Absolute Auto 0.1 10^3/uL (0.0-0.7); Eosinophils Percent Auto 0.8 % (0.9-7.0); Hematocrit 45.7 % (42.0-54.0); Hemoglobin 15.5 g/dL (14.0-18.0); Immature Granulocytes Abs Auto 0.06 10^3/uL (0.00-0.03); Immature Granulocytes Pct Auto 0.5 % (0.0-0.5); Lymphocytes Absolute Auto 2.1 10^3/uL (1.2-3.8); Lymphocytes Percent Auto 16.5 % (20.5-60.0); Mean Corpuscular HGB Conc 33.9 g/dL (29.9-35.2); Mean Corpuscular Hemoglobin 29.8 pg (25.9-34.0); Mean Corpuscular Volume 87.7 fL (80.0-94.0); Mean Platelet Volume 10.6 fL (9.5-13.5); Monocytes Absolute Auto 0.7 10^3/uL (0.3-0.8); Monocytes Percent Auto 5.8 % (1.7-12.0); Neutrophils Absolute Auto 9.7 10^3/uL (1.4-6.5); Neutrophils Percent Auto 76.1 % (43.0-75.0); Platelet Count 305 10^3/uL (150-450); Red Blood Count 5.21 10^6/uL (4.70-6.10); Red Cell Distribution Width 13.2 % (11.0-15.0); White Blood Count 12.7 10^3/uL (4.0-11.0)
[2024-04-15 14:56] LABS: Erythrocyte Sedimentation Rate 22 mm/hr (<=15)
[2024-04-15 15:00] LABS: Anion Gap 14.6; BUN Creatinine Ratio 10.1; Calcium 9.7 mg/dL (8.5-10.1); Carbon Dioxide 27.4 mmol/L (21.0-32.0); Chloride 106 mmol/L (98-107); Estimated GFR (African America >60 (>=60 mL/min/1.73m^2); Estimated GFR (Non-African Ame 54 (>=60 mL/min/1.73m^2); Glucose 111 mg/dL (74-106); Sodium 144 mmol/L (136-145)
[2024-04-15 15:02] LABS: C Reactive Protein 0.62 mg/dL (<=0.50)
[2024-04-15 15:16] VITALS: BP 135/97; PULSE 88; TEMP 36.8; O2SAT 97
[2024-04-15] MEDS: OXYCODONE HCL/ACETAMINOPHEN 5MG/325MG 1 TAB PO (15:31)
== END 2024-04-15 15:55 | disposition home or self-care (01) ==
PROVIDERS: Emergency Provider Emergency Medicine; PCP Family Medicine
DX: M06.9 Rheumatoid arthritis, unspecified (principal); F17.220 Nicotine dependence, chewing tobacco, uncomplicated
CPT/HCPCS: 36415; 73130; 80048; 85025; 85652; 86140; 99284

== ENCOUNTER 2024-05-18 09:28 | Outpatient (OUT) | payer OTHER, SELFPAY ==
--- OUTSIDE RECORDS SUMMARY | 2024-05-18 09:47 | XMS_ITS | CCD ---
Author Organization [facility] Care Team Providers Care Epitaxial Reactor Operator Name Role Phone LEYDI ACEVES Primary Care [...] Unavailable HAY ., DR DUGGAN Admitting Unavailable [place] MD [facility] Care Provider KAYCE COFFMAN Referring Unavailable BELLEROSE, [facility] Primary Care Unavailable Ladi Huber Attending Unavailable Ketan MD [facility] Care Provider Ketan CABRAL [facility] Unavailable Ketan CABRAL [facility] Provider [phone] MD Ketan [facility] Primary Care Provider MD Nicola Leyva Attending Provider Nicola Leyva Attending Unavailab le [facility] Unavailable Adam Young Admitting Unavailable Nicola Leyva Attending Unavailab le [facility] Care Unavailable Nicola Leyva Admitting Unavailab le Wednesday TERRITORY ACCOUNT MANAGER, Alma Unavailable DELMY BOYLE Referring Unavailable KETAN, [facility] Unavailable DELMY BOYLE Referring Unavailable KETAN, [facility] Unavailable DELMY BOYLE Attending Unavailable KETAN, [facility] Unavailable DELMY BOYLE Referring Unavailable KETAN, [facility] Unavailable KETAN, [facility] Unavailable DELMY BOLYE Attending Unavailable DELMY BOYLE Referring Unavailable KETAN, [facility] Primary Care Unavailable DELMY BOYLE Attending Unavailable KETAN, [facility] Primary Care Unavailable Ivon BENITES, Jayne Unavailable MARINA REES Attending Unavailable LEYDI ACEVES Attending Unavailable LEYDI ACEVES Attending Unavailable LEYDI ACEVES Attending Unavailable LEYDI ACEVES Attending Unavailable MARINA REES Attending Unavailable Medications Current Medications Medication Drug Class(es) Dates Sig (Normalized) Sig (Original) acetaminophen 325 mg / HYDROcodone bitartrate 5 mg oral tablet (5 sources) Opioid Agonist Start: 05-11-2024 End: 05-16-2024 take 1 tablet by mouth every six hours for pain HYDROcodone-aceta minophen (Wedowee) 5-325 MG tablet Indications: Abscess of right index finger Take 1 tablet by mouth every 6 (six) hours if needed for severe pain for up to 5 days 20 tablet 05/11/2024 05/16/2024 Active Start: 04-20-2024 End: 04-30-2024 take 1 tablet by mouth every six hours for pain HYDROcodone-acetaminophen (Wedowee) 5-325 MG tablet Indications: Abscess of right index finger Take 1 tablet by mouth every 6 (six) hours if needed for severe pain for up to 5 days 20 tablet 04/25/2024 04/30/2024 Active acetaminophen 325 mg / oxyCODONE hydrochloride 5 mg oral tablet (13 sources) Opioid Agonist Start: 04-15-2024 End: 04-20-2024 take 1 tablet by mouth every four hours as needed for pain and pain oxyCODONE-acetaminophen (Percocet) 5-325 MG tablet Take 1 tablet by mouth every 4 (four) hours if needed for severe pain or moderate pain 04/15/2024 04/20/2024 Discontinued (Therapy completed) Start: 01-11-2024 End: 01-26-2024 take 1 tablet by mouth every six hours for pain oxyCODONE-acetaminophen (Percocet) 5-325 MG [...] 07, 2021 12:00am May 09, 2023 1:48am [id number] 200 actuat albuterol 0.09 mg/actuat metered dose [...] Start: 01-01-2022 take 2 tablets by mo [facility] in the morning allopurinol (Zyloprim) 300 MG [...] (20 sources) Benzodiazepine Start: 10-11-19 End: 01-21-20 24 take 1 tablet by mouth in the [...] mg / clavulanate 125 mg oral tablet (5 sources) Penicillin-class Antibacterial Start: 5 End: 5 take 1 tablet by mouth in the morning amoxicillin-clav ulanate (Augmentin) 875-125 MG tablet Indications: Abscess of right index finger Take 1 tablet (875 mg) by mouth in the morning and 1 tablet (875 mg) in the evening. Take with meals. Do all this for 10 days. 20 tablet 04/20/2024 04/30/2024 Active Start: 12-24-2023 End: 12-31-2023 take 1 tablet by mouth in the morning amoxicillin-clavulanate (Augmentin) 875-125 MG tablet Indications: Chronic obstructive [...] 07/09/2023 Active carvedilol 6.25 mg oral tablet (20 sources) alpha-Adrenergic Nilton, beta-Adrenergic Nilton Start: 12-07-2021 [...] Active cloNIDine hydrochloride 0.1 mg oral tablet (20 sources) Central alpha-2 Adrenergic Agonist Start: 08-09-2023 [...] DAY diclofenac sodium 0.01 mg/mg topical gel (11 sources) Nonsteroidal Anti-inflammatory Drug Start: 01-21-2024 diclofenac [...] Discontinued (Other) gabapentin 300 mg oral capsule (20 sources) Anti-epileptic Agent Start: 01-17-2024 take 1 [...] 01/22/2024 Active lidocaine 0.05 mg/mg medicated patch (11 sources) Antiarrhythmic, Amide Local Anesthetic Start: 01-06-2024 End: 04-20-2024 apply 1 dose transdermal route in the morning lidocaine (Lidoderm) 5 % patch Place 1 patch on the skin in the morning. 01/06/2024 04/20/2024 Discontinued (Other) Start: 01-04-2024 apply 1 dose transde rmal [...] 01/11/2023 Active predniSONE 10 mg oral tablet (20 sources) Start: 05-16-2024 End: 05-31-2024 take 4 tablets by mouth once daily, [...] mg) Daily for 4 days. 40 tablet 05/16/2024 05/31/2024 Active Start: 04-16-2024 End: 05-02-2024 take 4 tablets by mouth once daily, [...] mg) Daily for 4 days. 40 tablet 04/16/2024 05/02/2024 Active Start: 01-21-2024 End: 02-01-2024 take 4 tablets [...] until off QUEtiapine 100 mg oral tablet (20 sources) Atypical Antipsychotic Start: End: take 1 tablet by mouth at bedtime [...] oral tablet (20 sources) Opioid Agonist Start: 04-04-2024 End: 06-01-2024 take 1 tablet by mouth once traMADol (Ultram) 50 MG tablet Indications: 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) Take 1 tablet (50 mg) by mouth every 12 (twelve) hours if needed for moderate pain 60 tablet 05/02/2024 06/01/2024 Active Start: 10-11-2023 End: 02-06-2024 take 1 tablet by mouth once traMADol (Ultram) 50 MG ta blet Indications: Rheumatoid arthritis involving multiple sites with [...] pain. traZODone hydrochloride 50 mg oral tablet (9 sources) Serotonin Reuptake Inhibitor Start: End: take 1-2 tablets by mouth once daily at bedtime as needed for sleep traZODone (Desyrel) 50 MG tablet TAKE 1 - 2 TABLETS BY MOUTH EVERYDAY AT BEDTIME NEEDED FOR SLEEP 11/12/2023 04/20/2024 Discontinued (Other) Start: 08-22-2023 take 50 mg by mouth [...] Problem Date Documented Date Episodic/Chronic Adjustment disorders (20 sources) Adjustment disorder with depressed mood; Translations: [Adjustment disorder with depressed mood] Onset: 07-29-2022 07-29-2022 Chronic Alcohol-related disorders (1 source) Alcohol dependence with intoxication, unspecified; Translations: [ALCOHOL DEPEND W/INTOX UNS] Onset: 12-15-2021 Chronic Anxiety disorders (20 sources) Anxiety; Translations: [Anxiety disorder, unspecified] Onset: 07-29-2022 07-29-2022 Chronic Chronic kidney disease (20 sources) Chronic kidney disease stage 3; Translations: [Stage 3 chronic kidney disease, unspecified whether stage 3a or 3b CKD (HCC)] Onset: 07-29-2022 Chronic E Codes: Natural/environment (1 source) Exposure to other specified factors, initial encounter; Translations: [EXPOSURE OTHER SPEC FACTORS INITIAL] Onset: 07-27-2022 Episodic Essential hypertension (20 sources) Essential hypertension; Translations: [Essential (primary) hypertension] [...] without status migrainosus] 09-27-2021 Chronic Immunity disorders (20 sources) Immunodeficiency disorder; Translations: [Immunodeficiency, unspecified] Onset: 07-29-2022 07-29-2022 Chronic Mood disorders (17 sources) Recurrent major depressive episodes, moderate ; Translations: [Major depressive disorder, recurrent, moderate] Onset: 12-15-2021 12-08-2021 Chronic Nutritional deficiencies (20 sources) Vitamin D deficiency; Translations: [Vitamin D deficiency, unspecified] Onset: 07-29-2022 07-29-2022 Chronic Osteoarthritis (20 sources) Localized, primary osteoarthritis of the shoulder region; Translations: [Primary osteoarthritis, unspecified shoulder] Onset: 07-29-2022 07-29-2022 Chronic Other aftercare (2 sources) Patient encounter status; Translations: [Other skilled nursing (current) drug therapy] Episodic Other aftercare (2 sources) Long-term current use of drug therapy; Translations: [Other skilled nursing (current) drug therapy] 01-04-2024 Episodic Other connective [...] Onset: 04-02-2022 Chronic Other non-traumatic joint disorders (20 sources) Polyarthropathy; Translations: [Polyarthritis, unspecified] Onset: 2015 12-16-2022 Chronic Other non-traumatic joint disorders (3 sources) Pain in left elbow; Translations: [PAIN IN LEFT ELBOW] Onset: 06-20-2022 Episodic Rheumatoid arthritis and related disease (20 sources) Rheumatoid arthritis of multiple joints; Translations: [Rheumatoid arthritis without rheumatoid factor, multiple sites] Onset: 04-25-2017 Resolved: 12-16-2022 05-10-2017 Chronic Skin and subcutaneous tissue infections (5 sources) Cellulitis of left lower limb; Translations: [Abscess of finger of right hand] Onset: 07-27-2022 04-20-2024 Episodic Spondylosis; intervertebral disc disorders; other back problems (20 sources) Degeneration of cervical intervertebral disc; Translations: [...] Da te Episodic/Chronic Deficiency and other anemia (20 sources) Anemia; Translations: [Anemia, unspecified] Onset: 2015 12-16-2022 Episodic E Codes: Unspecified (1 source) Blood alcohol level of 240 mg/100 ml or more; Translations: [BLOOD ALCOHOL LV 240 MG/100 ML/MORE] Onset: 12-15-2021 Episodic Fluid and electrolyte disorders (20 sources) Hyponatremia; Translations: [Hypo-osmolality and hyponatremia] Onset: 2015 12-16-2022 Episodic Malaise and fatigue (3 sources) Weakness; Translations: [WEAKNESS] Onset: 01-31-2022 Episodic Other aftercare (3 sources) Other buttermaker continuous churn (current) drug therapy; Translations: [OTH SHOP SUPERINTENDENT CURRENT DRUG THERAPY] Onset: 06-30-2022 Episodic Other connective tissue disease (1 source) Other muscle spasm; Translations: [OTHER MUSCLE SPASM] Onset: 10-21-2021 Episodic Other connective tissue disease (20 sources) Full thickness rotator cuff tear; Translations: [Complete rotator cuff tear or rupture of unspecified shoulder, not specified as traumatic] Onset: 07-29-2022 07-29-2022 Episodic Other connective tissue disease (20 sources) Tear of left rotator cuff; Translations: [...] [PAIN IN UNSPECIFIED JOINT] Onset: 02-03-2022 Episodic Other upper respiratory infections (14 sources) Acute pansinusitis; Translations: [Acute pansinusitis, unspecified] Onset: 01-11-2024 08-22-2023 Episodic Poisoning by other medications and drugs (18 sources) Poisoning by unspecified drugs, medicaments and biological substances, accidental (unintentional), initial encounter; Translations: [Poisoning by unspecified drug or medicinal substance] Onset: 06-10-2023 06-10-2023 Episodic Residual codes; unclassified (20 sources) Insomnia; Translations: [Insomnia, unspecified] Onset: 07-29-2022 07-29-2022 Episodic Spondylosis; intervertebral disc disorders; other back problems (7 sources) Muscle spasm of back; Translations: [Cervicalgia] Onset: 09-30-2021 Episodic Suicide and intentional self-inflicted injury (4 sources) Suicidal ideations; Translations: [SUICIDAL IDEATIONS] Onset: 12-06-2021 Episodic Syncope (20 sources) Vasovagal syncope; Translations: [Syncope and collapse] Onset: 12-16-2022 12-16-2022 Episodic Unclassified (1 source) LOW BACK PAIN, UNSPECIFIED; Translations: [LOW BACK PAIN, UNSPECIFIED] Onset: 01-14-2022 Viral infection (19 sources) Viral infection, unspecified; Translations: [Disease caused by 2019nCoV] Onset: 02-03-2022 10-11-2023 Episodic Results Test Name Value Interpretation Reference Range Facility [facility] 01-04-2024 CNOV Office Visit (RHEVAZQUEZ ) -- KAMALANICK M ([id number]) 1990 M Date Time Provider Department 01/04/24 [...] arthritic flares once every 4 months. Saw boot lace cutter machine Dr. Jaime in [place] who did diagnostic knee aspiration which according to patient was positive for uric acid crystals. Treated with steroids and continued allopurinol. He has not seen Dr. Jaime since 2014. In 2014, he was hospitalized in [place] for acute polyarthritis. Saw boot lace cutter machine while in hospital who told him that he possibly had RA. Discharged on steroids. His PCP switched him from allopurinol to Uloric Jan 2017. He also takes colchicine prn. No reduction in frequency or severity of his joint flares with Uloric. In 2017, he has been hospitalized 7-8 times for acute joint flares. Each time he is treated with steroids. Hospitalized at [facility] Apr 2017 for acute flare [...] shoulder surgery by Dr. Tc Coffey at [facility]. No post op complications. Was in [...] of gout 06/2023. He was seen in [facility] for gout flare. Given steroid injection and [...] blood Nega (more content not included)... Normal [facility] 01-04-2024 LIANNAN Telephone ([employer]) -- NICK WRAY ([id number]) 1990 M Date Time Provider Department 01/04/24 DELMY BOYLE During your visit today, we recorded the following information about you: Camilla Holt BREE 01/04/2024 1:23 PM Signed Nick Wray (Munoz: [id number]) PA Rx #: [id number] Need Help? Call us at Outcome Denied [...] of therapy with generic Lidocaine patch. The [facility] Policy for Medical Necessity as posted on the [facility] website and [facility] Preferred Drug List criteria were reviewed and per [place] Administrative Code Rule 5160-1-01 (C) and (B), [...] through the community. Drug ZTlido 1.8% patches [facility] cloud logo Form [place] [facility] [employer] PA Form (2016 NCPDP) Original Claim Info 75 Camilla Holt BREE 01/04/2024 1:23 PM Signed FYI- Insurance wants [...] Status:Closed by CAMILLA HOLT on 01/04/24 Normal [facility] No Panel Informationon 01-03 Radiology Study observation (narrative) [facility] XR FOOT 3V AP/LAT/OBL BILon 01-04-2024 XR FOOT 3V AP/LAT/OBL RAMIRO * * *Final Report* * * DATE OF EXAM: Jan 04 2024 9:48AM VHX [id number] - XR FOOT 3V AP/LAT/OBL RAMIRO / PROCEDURE REASON: multiple diagnoses * * * * Physician Interpretation * * * * EXAMINATION / TECHNIQUE: XR FOOT 3V AP/LAT/OBL ARMIRO PATIENT/TECHNOLOGIST PROVIDED HISTORY: Assessment of gout progresssion [...] progressed from 05/04/2017 Mild right foot osteoarthritis. It Recruiter: PSCB Transcribe Date/Time: Jan 04 2024 10:13A Dictated by : UMA ROGERS MD This examination was interpreted and the report reviewed and electronically signed by: CHELSEA REEVES MD on Jan 04 2024 3:12PM EST [id number] [facility] XR Foot - bilateral AP and [...] acute fracture or dislocation. Mild pes planus. [facility] Provider, [facility] - 01/04/2024 * * *Final Report* [...] progressed from 05/04/2017 Mild right foot osteoarthritis. It Recruiter: ADELA Transcribe Date/Time: Jan 04 2024 10:13A Dictated by : UMA ROGERS MD This examination was interpreted and the report reviewed and electronically signed by: CHELSEA REEVES MD on Jan 04 2024 3:12PM [facility] XR KNEE 4V AP/PA/LAT/RYDER Sherman 01-04-2024 XR KNEE 4V AP/PA/LAT/MERCH RAMIRO * [...] similar to 05/04/2017. Mild right knee osteoarthritis. 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 Mild right knee osteoarthritis. It Recruiter: ADELA Transcribe Date/Time: Jan 04 2024 12:48P Dictated by : CHELSEA REEVES MD This examination was interpreted and the report reviewed and electronically signed by: CHELSEA REEVES MD on Jan 04 2024 1:21PM EST [facility] * * *Final Report* * * [...] findings are similar when compared to 05/04/2017. [facility] * * *Final [...] similar to 05/04/2017. Mild right knee osteoarthritis. It Recruiter: ADELA Transcribe Date/Time: Jan 04 2024 12:48P Dictated by : CHELSEA REEVES MD This examination was interpreted and the report reviewed and electronically signed by: CHELSEA REEVES MD on Jan 04 2024 1:21PM EST [facility] XR Knee - bilateral 4 ViewsO rdered By: Ccf Provider on 01-04-2024 [facility] ALT SerPl-cCncon 12-30-2023 ALT [Catalytic activity/Vol] 20 U/L Normal 10-54 [facility] Comment on above: Order Comment: Speci men Type: BLOOD SPECIMEN Ordering Facility: [facility] Address: [address] [place] [address] Performed By: #### C RET1 #### [facility] CLIA [id number] [address] [place] [address] AST SerPl-cCncon 12-30-2023 AST [Catalytic activity/Vol] 18 U/L Normal 14-40 [facility] Comment on above: Order Comment: Speci men Type: BLOOD SPECIMEN Ordering Facility: [facility] Address: [address] [place] [address] Performed By: #### C RET1 #### [facility] CLIA [id number] [address] [place] [address]81 Albumin SerPl-mCncon 024 Albumin [Mass/Vol] 4.1 g/dL Normal 3.9-4.9 [facility] Comment on above: Order Comment: Speci men Type: BLOOD SPECIMEN Ordering Facility: [facility] Address: [address] [place] [address] Performed By: #### C RET1 #### [facility] CLIA [id number] [address] [place] [address]119 CBC W Auto Differential pane l (Bld)on 12-30-2023 Basophils (Bld) [#/Vol] 0.03 10*3/uL Normal <0.11 [facility] Comment on above: Order Comment: Speci men Type: BLOOD SPECIMEN Ordering Facility: [facility] Address: [address] [place] [address] Performed By: #### 5 7021-8 #### [facility] CLIA [id number] [address] [place] [address] 32326 Basophils/100 WBC (Bld) 0.6 % Normal [facility] Comment on above: Order Comment: Speci men Type: BLOOD SPECIMEN Ordering Facility: [facility] Address: [address] [place] [address] Performed By: #### 5 7021-8 #### [facility] CLIA [id number] [address] [place] [address] 75687 Differential cell count method Nom (Bld) Auto Normal [facility] Comment on above: Order Comment: Speci men Type: BLOOD SPECIMEN Ordering Facility: [facility] Address: [address] [place] [address] Performed By: #### 5 7021-8 #### [facility] CLIA [id number] [address] [place] [address] 06964 Eosinophils (Bld) [#/Vol] 0.06 10*3/uL Normal <0.46 [facility] Comment on above: Order Comment: Speci men Type: BLOOD SPECIMEN Ordering Facility: [facility] Address: [address] [place] [address] Performed By: #### 5 7021-8 #### [facility] CLIA [id number] [address] [place] [address] 34040 Eosinophils/100 WBC (Bld) 1.3 % Normal [facility] Comment on above: Order Comment: Speci men Type: BLOOD SPECIMEN Ordering Facility: [facility] Address: [address] [place] [address] Performed By: #### 5 7021-8 #### [facility] CLIA [id number] [address] [place] [address]3295 Erythrocyte distribution width (RBC) [Ratio] 13.2 % Normal 11.5-15.0 [facility] Comment on above: Order Comment: Speci men Type: BLOOD SPECIMEN Ordering Facility: [facility] Address: [address] [place] [address] Performed By: #### 5 7021-8 #### [facility] CLIA [id number] [address] [place] [address] 65426 Hematocrit (Bld) [Volume fraction] 40.9 % Normal 39.0-51.0 [facility] Comment on above: Order Comment: Speci men Type: BLOOD SPECIMEN Ordering Facility: [facility] Address: [address] [place] [address] Performed By: #### 5 7021-8 #### [facility] CLIA [id number] [address] [place] [address] 33000 Hemoglobin (Bld) [Mass/Vol] 14.3 g/dL Normal 13.0-17.0 [facility] Comment on above: Order Comment: Speci men Type: BLOOD SPECIMEN Ordering Facility: [facility] Address: [address] [place] [address] Performed By: #### 5 7021-8 #### [facility] CLIA [id number] [address] [place] [address] 04964 Immature granulocytes (Bld) [#/Vol] 10*3/uL Normal <0.10 [facility] Comment on above: Order Comment: Speci men Type: BLOOD SPECIMEN Ordering Facility: [facility] Address: [address] [place] [address] Performed By: #### 5 7021-8 #### [facility] CLIA [id number] [address] [place] [address] 83784 Immature granulocytes/100 WBC (Bld) 0.2 % Normal [facility] Comment on above: Order Comment: Speci men Type: BLOOD SPECIMEN Ordering Facility: [facility] Address: [address] [place] [address] Performed By: #### 5 7021-8 #### [facility] CLIA [id number] [address] [place] [address] 97288 Lymphocytes (Bld) [#/Vol] 1.71 10*3/uL Normal 1.00-4.00 [facility] Comment on above: Order Comment: Speci men Type: BLOOD SPECIMEN Ordering Facility: [facility] Address: [address] [place] [address] Performed By: #### 5 7021-8 #### [facility] CLIA [id number] [address] [place] [address] 63463 Lymphocytes/100 WBC (Bld) 36.6 % Normal [facility] Comment on above: Order Comment: Speci men Type: BLOOD SPECIMEN Ordering Facility: [facility] Address: [address] [place] [address] Performed By: #### 5 7021-8 #### [facility] CLIA [id number] [address] [place] [address] 30878 MCH (RBC) [Entitic mass] 29.9 pg Normal 26.0-34.0 [facility] Comment on above: Order Comment: Speci men Type: BLOOD SPECIMEN Ordering Facility: [facility] Address: [address] [place] [address] Performed By: #### 5 7021-8 #### [facility] CLIA [id number] [address] [place] [address] 07338 MCHC (RBC) [Mass/Vol] 35.0 g/dL Normal 30.5-36.0 [facility] Comment on above: Order Comment: Speci men Type: BLOOD SPECIMEN Ordering Facility: [facility] Address: [address] [place] [address] Performed By: #### 5 7021-8 #### [facility] CLIA [id number] [address] [place] [address] 93071 MCV (RBC) [Entitic vol] 85.4 fL Normal 80.0-100.0 [facility] Comment on above: Order Comment: Speci men Type: BLOOD SPECIMEN Ordering Facility: [facility] Address: [address] [place] [address] Performed By: #### 5 7021-8 #### [facility] CLIA [id number] [address] [place] [address] 21251 Monocytes (Bld) [#/Vol] 0.28 10*3/uL Normal <0.87 [facility] Comment on above: Order Comment: Speci men Type: BLOOD SPECIMEN Ordering Facility: [facility] Address: [address] [place] [address] Performed By: #### 5 7021-8 #### [facility] CLIA [id number] [address] [place] [address] 65570 Monocytes/100 WBC (Bld) 6.0 % Normal [facility] Comment on above: Order Comment: Speci men Type: BLOOD SPECIMEN Ordering Facility: [facility] Address: [address] [place] [address] Performed By: #### 5 7021-8 #### [facility] CLIA [id number] [address] [place] [address] 02488 Neutrophils (Bld) [#/Vol] 2.58 10*3/uL Normal 1.45-7.50 [facility] Comment on above: Order Comment: Speci men Type: BLOOD SPECIMEN Ordering Facility: [facility] Address: [address] [place] [address] Performed By: #### 5 7021-8 #### [facility] CLIA [id number] [address] [place] [address] 18353 Neutrophils/100 WBC (Bld) 55.3 % Normal [facility] Comment on above: Order Comment: Speci men Type: BLOOD SPECIMEN Ordering Facility: [facility] Address: [address] [place] [address] Performed By: #### 5 7021-8 #### [facility] CLIA [id number] [address] [place] [address] 41079 Nucleated RBC (Bld) [#/Vol] 10*3/uL Normal <0.01 [facility] Comment on above: Order Comment: Speci men Type: BLOOD SPECIMEN Ordering Facility: [facility] Address: [address] [place] [address] Performed By: #### 5 7021-8 #### [facility] CLIA [id number] [address] [place] [address] Nucleated RBC/100 WBC (Bld) [Ratio] 0.0 /100 WBC Normal [facility] Comment on above: Order Comment: Speci men Type: BLOOD SPECIMEN Ordering Facility: [facility] Address: [address] [place] [address] Performed By: #### 5 7021-8 #### [facility] CLIA [id number] [address] [place] [address] 08936 Platelet mean volume (Bld) [Entitic vol] 10.4 fL Normal 9.0-12.7 [facility] Comment on above: Order Comment: Speci men Type: BLOOD SPECIMEN Ordering Facility: [facility] Address: [address] [place] [address] Performed By: #### 5 7021-8 #### [facility] CLIA [id number] [address] [place] [address] 97106 Platelets (Bld) [#/Vol] 277 10*3/uL Normal 150-400 [facility] Comment on above: Order Comment: Speci men Type: BLOOD SPECIMEN Ordering Facility: [facility] Address: [address] [place] [address] Performed By: #### 5 7021-8 #### [facility] CLIA [id number] [address] [place] [address] 60611 RBC (Bld) [#/Vol] 4.79 10*6/uL Normal 4.20-6.00 [facility] Comment on above: Order Comment: Speci men Type: BLOOD SPECIMEN Ordering Facility: [facility] Address: [address] [place] [address] Performed By: #### 5 7021-8 #### [facility] CLIA [id number] [address] [place] [address] 12256 WBC (Bld) [#/Vol] 4.67 10*3/uL Normal 3.70-11.00 [facility] Comment on above: Order Comment: Speci men Type: BLOOD SPECIMEN Ordering Facility: [facility] Address: [address] [address] Performed By: #### 5 7021-8 #### [facility] CLIA [id number] [address] [place] [address] 61097 [facility] CBC W AUTO DIFF BLDon Basophils/100 WBC (Bld) 0.6 % [facility] BASOPHILS # BLD AUTO 0.03 [facility] DIFFERENTIAL METHOD BLD Auto [facility]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 Godoy MD Lymphocytes/100 WBC (Bld) 10 % Normal [facility] Comment on above: Performed By: #### F LCRYS #### [facility] [address] [place] [address] Chemistry Laboratory Technician: Krish Abdi MD [facility] [address] [place] [address] Chemistry Laboratory Technician: Drew Godoy MD #### FLDCT #### [facility] [address] [place] [address] Chemistry Laboratory Technician: Drew Godoy MD Smith/Macrophage 0 % Normal [facility] Comment on above: Performed By: #### F LCRYS #### [facility] [address] [place] [address] Chemistry Laboratory Technician: Krish Abdi MD [facility] [address] [place] [address] Chemistry Laboratory Technician: Drew Godoy MD #### FLDCT #### [facility] [address] [place] [address] Chemistry Laboratory Technician: Drew Godoy MD Neutrophils/100 WBC (Bld) 90 % Normal [facility] Comment on above: Performed By: #### F LCRYS #### [facility] [address] [place] [address] Chemistry Laboratory Technician: Krish Abdi MD [facility] [address] [place] [address] Chemistry Laboratory Technician: Drew Godoy MD #### FLDCT #### [facility] [address] [place] [address] Chemistry Laboratory Technician: Drew Godoy MD RBC (Bld) [#/Vol] 0.32262 10*6/uL [facility] Comment on above: Performed By: #### F LCRYS #### [facility] [address] [place] [address] Chemistry Laboratory Technician: Krish Abdi MD [facility] [address] [place] [address] Chemistry Laboratory Technician: Drew Godoy MD #### FLDCT #### [facility] [address] [place] [address] Chemistry Laboratory Technician: Drew Godoy MD WBC (Bld) [#/Vol] 9.96 10*3/uL Normal [facility] Comment on above: Performed By: #### F LCRYS #### [facility] [address] [place] [address] Chemistry Laboratory Technician: Krish Abdi MD [facility] [address] [place] [address] Chemistry Laboratory Technician: Drew Godoy MD #### FLDCT #### [facility] [address] [place] [address] Chemistry Laboratory Technician: Drew Godoy MD Appearance (U) Cloudy [facility] Comment on above: Performed By: #### F LCRYS #### [facility] [address] [place] [address] Chemistry Laboratory Technician: Krish Abdi MD [facility] [address] [place] [address] Chemistry Laboratory Technician: Drew Godoy MD #### FLDCT #### [facility] [address] [place] [address] Chemistry Laboratory Technician: Drew Godoy MD Color (U) Pale Yellow [facility] Comment on above: Performed By: #### F LCRYS #### [facility] [address] [place] [address] Chemistry Laboratory Technician: Krish Abdi MD [facility] [address] [place] [address] Chemistry Laboratory Technician: Drew Godoy MD #### FLDCT #### [facility] [address] [place] [address] Chemistry Laboratory Technician: Drew Godoy MD Type of Specimen .FLUID Normal [facility] Comment on above: Performed By: #### F LCRYS #### [facility] [address] [place] [address] Chemistry Laboratory Technician: Krish Abdi MD [facility] [address] [place] [address] Chemistry Laboratory Technician: Drew Godoy MD #### FLDCT #### [facility] [address] [place] [address] Chemistry Laboratory Technician: Drew Godoy MD CBC AUTO DIFFon 06-28-2022 BASO # 0.0 103/ul Normal 0.0-0.1 [facility] Comment on above: Performed By: #### C BC #### [facility] [address] [address] [address] Nilay Gibbs Basophils/100 WBC (Bld) 0.2 % Normal 0.2-2.0 [facility] Comment on above: Performed By: #### C BC #### [facility] [address] [address] [address] Nilay Gibbs EO # 0.0 103/ul Normal 0.0-0.7 [facility] Comment on above: Performed By: #### C BC #### [facility] [address] [address] [address] Nilay Gibbs Eosinophils/100 WBC (Bld) 0.3 % Critically low 0.9-7.0 [facility] Comment on above: Performed By: #### C BC #### [facility] [address] [place] [address] Dr. Nilay Gibbs Erythrocyte distribution width (RBC) [Ratio] 13.9 % Normal 11.0-15.0 [facility] Comment on above: Performed By: #### C BC #### [facility] [address] [place] [address] Dr. Nilay Gibbs Hematocrit (Bld) [Volume fraction] 39.8 % Critically low 42.0-54.0 [facility] Comment on above: Performed By: #### C BC #### [facility] [address] [place] [address] Dr. Nilay Gibbs Hemoglobin (Bld) [Mass/Vol] 13.2 g/dL Critically low 14.0-18.0 [facility] Comment on above: Performed By: #### C BC #### [facility] [address] [place] [address] Dr. Nilay Gibbs IG # 0.04 10e3/ul Critically high 0.00-0.03 [facility] Comment on above: Performed By: #### C BC #### [facility] [address] [address] [address] Nilay Gibbs IG % 0.4 % Normal 0.0-0.5 [facility] Comment on above: Performed By: #### C BC #### [facility] [address] [address] [address] Nilay Gibbs LYMPH # 1.8 103/ul Normal 1.2-3.8 [facility] Comment on above: Performed By: #### C BC #### [facility] [address] [place] [address] Dr. Nilay Gibbs Lymphocytes/100 WBC (Bld) 17.5 % Critically low 20.5-60.0 [facility] Comment on above: Performed By: #### C BC #### [facility] [address] [place] [address] Dr. Nilay Gibbs MANUAL DIFF REQ NO Normal [facility] Comment on above: Performed By: #### C BC #### [facility] [address] [place] [address] Dr. Nilay Gibbs MCH (RBC) [Entitic mass] 29.3 pg Normal 25.9-34.0 [facility] Comment on above: Performed By: #### C BC #### [facility] [address] [place] [address] Dr. Nilay Gibbs MCHC (RBC) [Mass/Vol] 33.2 g/dL Normal 29.9-35.2 [facility] Comment on above: Performed By: #### C BC #### [facility] [address] [place] [address] Dr. Nilay Gibbs MCV (RBC) [Entitic vol] 88.4 fL Normal 80.0-94.0 [facility] Comment on above: Performed By: #### C BC #### [facility] [address] [place] [address] Dr. Nilay Gibbs MONO # 0.9 103/ul Critically high 0.3-0.8 [facility] Comment on above: Performed By: #### C BC #### [facility] [address] [place] [address] Dr. Nilay Gibbs Monocytes/100 WBC (Bld) 9.4 % Normal 1.7-12.0 [facility] Comment on above: Performed By: #### C BC #### [facility] [address] [address] [address] Nilay Gibbs NEUT # 7.2 103/ul Critically high 1.4-6.5 [facility] Comment on above: Performed By: #### C BC #### [facility] [address] [place] [address] Dr. Nilay Gibbs Neutrophils/100 WBC (Bld) 72.2 % Normal 43.0-75.0 [facility] Comment on above: Performed By: #### C BC #### [facility] [address] [place] [address] Dr. Nilay Gibbs Platelet mean volume (Bld) [Entitic vol] 9.6 fL Normal 9.5-13.5 [facility] Comment on above: Performed By: #### C BC #### [facility] [address] [place] [address] Dr. Nilay Gibbs PLT 356 103/ul Normal 150-450 [facility] Comment on above: Performed By: #### C BC #### [facility] [address] [place] [address] Dr. Nilay Gibbs RBC 4.50 106/ul Critically low 4.70-6.10 [facility] Comment on above: Performed By: #### C BC #### [facility] [address] [place] [address] Dr. Nilay Gibbs WBC 10.0 103/ul Normal 4.0-11.0 [facility] Comment on above: Performed By: #### C BC #### [facility] [address] [place] [address] Dr. Nilay Gibbs PROF CHEM 8 (BAS METB)on Anion gap [Moles/Vol] 12.4 mmol/L Normal [facility] Comment on above: Performed By: #### A MM #### [facility] [address] [place] [address] Dr. Nilay Gibbs Calcium [Mass/Vol] 9.4 mg/dL Normal 8.5-10.1 [facility] Comment on above: Performed By: #### A MM #### [facility] [address] [place], [place] [id number] Dr. Nilay Gibbs Chloride [Moles/Vol] 105 mmol/L Normal 98-107 [facility] Comment on above: Performed By: #### A MM #### [facility] [address] [place] [address] Dr. Nilay Gibbs CO2 [Moles/Vol] 25.6 mmol/L Normal 21.0-32.0 [facility] Comment on above: Performed By: #### A MM #### [facility] [address] [place] [address] Dr. Nilay Gibbs Creatinine [Mass/Vol] 1.18 mg/dL Normal 0.70-1.30 [facility] Comment on above: Performed By: #### A MM #### [facility] [address] [place] [address] Dr. Nilay Gibbs EGFR-AF BRUNEIAN >60 Normal >=60 [facility] Comment on above: Performed By: #### A MM #### [facility] [address] [place] [address] Dr. Nilay Gibbs EGFR-NON AF BRUNEIAN >60 Normal >=60 [facility] Comment on above: Performed By: #### A MM #### [facility] [address] [place] [address] Dr. Nilay Gibbs Glucose [Mass/Vol] 125 mg/dL Critically high 74-[address] [facility] Comment on above: Performed By: #### A MM #### [facility] [address] [place] [address] Dr. Nilay Gibbs Potassium [Moles/Vol] 4.3 mmol/L Normal 3.5-5.1 [facility] Comment on above: Performed By: #### A MM #### [facility] [address] [place] [address] Dr. Nilay Gibbs Sodium [Moles/Vol] 139 mmol/L Normal 136-145 [facility] Comment on above: Performed By: #### A MM #### [facility] [address] [place] [address] Dr. Nilay Gibbs Urea nitrogen [Mass/Vol] 15.0 mg/dL Normal 7.0-18.0 [facility] Comment on above: Performed By: #### A MM #### [facility] [address] [place] [address] Dr. Nilay Gibbs Urea nitrogen/Creatinine [Mass ratio] 12.7 mg/mg Normal [facility] Comment on above: Performed By: #### A MM #### [facility] [address] [place] [address] Dr. Nilay Gibbs CBC AUTO DIFFon 06-20-2022 BASO # 0.0 103/ul Normal 0.0-0.1 [facility] Comment on above: Performed By: #### A MM #### [facility] [address] [place] [address] Dr. Nilay Gibbs Basophils/100 WBC (Bld) 0.2 % Normal 0.2-2.0 [facility] Comment on above: Performed By: #### A MM #### [facility] [address] [place] [address] Dr. Nilay Gibbs EO # 0.0 103/ul Normal 0.0-0.7 [facility] Comment on above: Performed By: #### A MM #### [facility] [address] [place] [address] Dr. Nilay Gibbs Eosinophils/100 WBC (Bld) 0.3 % Critically low 0.9-7.0 [facility] Comment on above: Performed By: #### A MM #### [facility] [address] [place] [address] Dr. Nilay Gibbs Erythrocyte distribution width (RBC) [Ratio] 14.3 % Normal 11.0-15.0 [facility] Comment on above: Performed By: #### A MM #### [facility] [address] [place] [address] Dr. Nilay Gibbs Hematocrit (Bld) [Volume fraction] 39.3 % Critically low 42.0-54.0 [facility] Comment on above: Performed By: #### A MM #### [facility] [address] [place] [address] Dr. Nilay Gibbs Hemoglobin (Bld) [Mass/Vol] 13.1 g/dL Critically low 14.0-18.0 [facility] Comment on above: Performed By: #### A MM #### [facility] [address] [place] [address] Dr. Nilay Gibbs IG # 0.03 10e3/ul Normal 0.00-0.03 [facility] Comment on above: Performed By: #### A MM #### [facility] [address] [place] [address] Dr. Nilay Gibbs IG % 0.3 % Normal 0.0-0.5 [facility] Comment on above: Performed By: #### A MM #### [facility] [address] [place] [address] Dr. Nilay Gibbs LYMPH # 1.7 103/ul Normal 1.2-3.8 [facility] Comment on above: Performed By: #### A MM #### [facility] [address] [place] [address] Dr. Nilay Gibbs Lymphocytes/100 WBC (Bld) 14.5 % Critically low 20.5-60.0 [facility] Comment on above: Performed By: #### A MM #### [facility] [address] [place] [address] Dr. Nilay Gibbs MANUAL DIFF REQ NO Normal [facility] Comment on above: Performed By: #### A MM #### [facility] [address] [place] [address] Dr. Nilay Gibbs MCH (RBC) [Entitic mass] 29.2 pg Normal 25.9-34.0 [facility] Comment on above: Performed By: #### A MM #### [facility] [address] [place] [address] Dr. Nilay Gibbs MCHC (RBC) [Mass/Vol] 33.3 g/dL Normal 29.9-35.2 [facility] Comment on above: Performed By: #### A MM #### [facility] [address] [place] [address] Dr. Nilay Gibbs MCV (RBC) [Entitic vol] 87.5 fL Normal 80.0-94.0 [facility] Comment on above: Performed By: #### A MM #### [facility] [address] [address] [address] Nilay Gibbs MONO # 1.3 103/ul Critically high 0.3-0.8 [facility] Comment on above: Performed By: #### A MM #### [facility] [address] [address] [address] Nilay Gibbs Monocytes/100 WBC (Bld) 10.9 % Normal 1.7-12.0 [facility] Comment on above: Performed By: #### A MM #### [facility] [address] [address] [address] Nilay Gibbs NEUT # 8.7 103/ul Critically high 1.4-6.5 [facility] Comment on above: Performed By: #### A MM #### [facility] [address] [place] [address] Dr. Nilay Gibbs Neutrophils/100 WBC (Bld) 73.8 % Normal 43.0-75.0 [facility] Comment on above: Performed By: #### A MM #### [facility] [address] [place] [address] Dr. Nilay Gibbs Platelet mean volume (Bld) [Entitic vol] 10.9 fL Normal 9.5-13.5 [facility] Comment on above: Performed By: #### A MM #### [facility] [address] [place] [address] Dr. Nilay Gibbs PLT 171 103/ul Normal 150-450 [facility] Comment on above: Performed By: #### A MM #### [facility] [address] [address] [address] Nilay Gibbs RBC 4.49 106/ul Critically low 4.70-6.10 [facility] Comment on above: Performed By: #### A MM #### [facility] [address] [address] [address] Nilay Gibbs WBC 11.7 103/ul Critically high 4.0-11.0 [facility] Comment on above: Performed By: #### A MM #### [facility] [address] [place] [address] Dr. Nilay Gibbs CRPon 06-20-2022 CRP 25.4 mg/dL Critically high <=1.0 [facility] Comment on above: Performed By: #### C RP, CMP #### [facility] [address] [place] [address] Dr. Nilay Gibbs CULTURE BLOODon 06-20-2022 Microscopic examination of blood, culture Culture Observations: NO GROWTH AT 5 DAYS. Normal [facility] Comment on above: Performed By: #### C MP #### [facility] [address] [place] [address] Dr. Nilay Gibbs Microscopic examination of blood, culture Culture Observations: NO GROWTH AT 5 DAYS. Normal [facility] Comment on above: Performed By: #### C MP #### [facility] [address] [place] [address] Dr. Nilay Gibbs LACTATE/LACTIC ACIDon 2022 Lactate [Moles/Vol] 0.7 mmol/L Normal 0.4-2.0 [facility] Comment on above: Performed By: #### A MM #### [facility] [address] [place] [address] Dr. Nilay Gibbs PROF 14(COMP METB)on 023 Albumin [Mass/Vol] 3.8 g/dL Normal 3.4-5.0 [facility] Comment on above: Performed By: #### C RP, CMP #### [facility] [address] [place] [address] Dr. Nilay Gibbs Albumin/Globulin [Mass ratio] 1.1 {ratio} [facility] Comment on above: Performed By: #### C RP, CMP #### [facility] [address] [place] [address] Dr. Nilay Gibbs ALP [Catalytic activity/Vol] 85 U/L Normal 46-116 [facility] Comment on above: Performed By: #### C RP, CMP #### [facility] [address] [place] [address] Dr. Nilay Gibbs ALT [Catalytic activity/Vol] 29 U/L Normal 16-63 [facility] Comment on above: Performed By: #### C RP, CMP #### [facility] [address] [place] [address] Dr. Nilay Gibbs Anion gap [Moles/Vol] 15.2 mmol/L Normal [facility] Comment on above: Performed By: #### C RP, CMP #### [facility] [address] [place] [address] Dr. Nilay Gibbs AST [Catalytic activity/Vol] 20 U/L Normal 15-37 [facility] Comment on above: Performed By: #### C RP, CMP #### [facility] [address] [place] [address] Dr. Nilay Gibbs Bilirubin [Mass/Vol] 1.1 mg/dL Critically high 0.2-1.0 [facility] Comment on above: Performed By: #### C RP, CMP #### [facility] [address] [place] [address] Dr. Nilay Gibbs Calcium [Mass/Vol] 9.4 mg/dL Normal 8.5-10.1 [facility] Comment on above: Performed By: #### C RP, CMP #### [facility] [address] [place] [address] Dr. Nilay Gibbs Chloride [Moles/Vol] 99 mmol/L Normal 98-107 [facility] Comment on above: Performed By: #### C RP, CMP #### [facility] [address] [place] [address] Dr. Nilay Gibbs CO2 [Moles/Vol] 25.7 mmol/L Normal 21.0-32.0 [facility] Comment on above: Performed By: #### C RP, CMP #### [facility] [address] [place] [address] Dr. Nilay Gibbs Creatinine [Mass/Vol] 1.32 mg/dL Critically high 0.70-1.30 [facility] Comment on above: Performed By: #### C RP, CMP #### [facility] [address] [place] [address] Dr. Nilay Gibbs EGFR-AF BRUNEIAN >60 Normal >=60 [facility] Comment on above: Performed By: #### C RP, CMP #### [facility] [address] [place] [address] Dr. Nilay Gibbs EGFR-NON AF BRUNEIAN >60 Normal >=60 [facility] Comment on above: Performed By: #### C RP, CMP #### [facility] [address] [place] [address] Dr. Nilay Gibbs Globulin (S) [Mass/Vol] 3.6 g/dL Normal [facility] Comment on above: Performed By: #### C RP, CMP #### [facility] [address] [place] [address] Dr. Nilay Gibbs Glucose [Mass/Vol] 106 mg/dL Normal 74-106 [facility] Comment on above: Performed By: #### C RP, CMP #### [facility] [address] [place] [address] Dr. Nilay Gibbs Potassium [Moles/Vol] 3.9 mmol/L Normal 3.5-5.1 [facility] Comment on above: Performed By: #### C RP, CMP #### [facility] [address] [place] [address] Dr. Nilay Gibbs Protein [Mass/Vol] 7.4 g/dL Normal 6.4-8.2 [facility] Comment on above: Performed By: #### C RP, CMP #### [facility] [address] [place] [address] Dr. Nilay Gibbs Sodium [Moles/Vol] 136 mmol/L Normal 136-145 [facility] Comment on above: Performed By: #### C RP, CMP #### [facility] [address] [place] [address] Dr. Nilay Gibbs Urea nitrogen [Mass/Vol] 10.0 mg/dL Normal 7.0-18.0 [facility] Comment on above: Performed By: #### C RP, CMP #### [facility] [address] [place] [address] Dr. Nilay Gibbs Urea nitrogen/Creatinine [Mass ratio] 7.6 mg/mg Normal [facility] Comment on above: Performed By: #### C RP, CMP #### [facility] [address] [address] [address] Nilay Gibbs SED RATE WESTERGRENon 2022 SED RATE 46 mm/hr Critically high <=15 [facility] Comment on above: Performed By: #### S EDR #### [facility] [address] [address] [address] Nilay Gibbs Covid-19 PCR ([facility])on SARS-CoV-2 (COVID-19) RNA TALHA+probe Ql (Unsp spec) Not detected Normal NOT DETECTED [facility] Comment on above: Result Comment: When diagnostic [...] for this test is supported by the Personal Security Specialist of Health and Human Service's declaration [...] MM #### [facility] [address] [place] [address] Dr. Nilay Gibbs INFLUENZA A AND B AGon 01-31 INFLUANEGH SEE BELOW Normal [facility] Comment on above: Result Comment: Nega tive for Flu A protein angiten. Infection due to Flu A cannot be ruled out. Flu A angiten in the sample may be below the detection limit of the test. Performed By: #### A MM #### [facility] [address] [place] [address] Dr. Nilay [facility] SEE BELOW Normal [facility] Comment on above: Result Comment: Nega tive for Flu B protein antigen. Infection due to Flu B cannot be ruled out. Flu B antigen in the sample may be below the detection limit of the test. Performed By: #### A MM #### [facility] [address] [address] [address] Nilay Gibbs INFLUENZA A AG Negative Normal NEGATIVE SEE COMMENT [facility] Comment on above: Performed By: #### A MM #### [facility] [address] [address] [address] Nilay Gibbs INFLUENZA B AG Negative Normal NEGATIVE SEE COMMENT [facility] Comment on above: Performed By: #### A MM #### [facility] [address] [address] [address] Nilay Gibbs INTERNAL CONTROLS Within Normal Limits Normal Wi thin Normal Limits [facility] Comment on above: Performed By: #### A MM #### [facility] [address] [address] [address] Nilay Gibbs Cholesterol [Mass/volume] in Serum or PlasmaOrdered By: Adam Young on 12-08-2021 Cholesterol [Mass/Vol] 205 mg/dL 140-200 [facility] Comment on above: Chol less than 200 m g/dl low riskChol 201-239 mg/dl borderline riskChol 240 mg/dl and greater high risk Cholesterol in LDL Calc [Mas s/Vol]Ordered By: Adam Young on 12-08-2021 Cholesterol in LDL [Mass/Vol] 120 mg/dL 0-100 [facility] Comment on above: LDL ATP III CLASSIFI CATIONLDL less than 100 mg/dL OptimalLDL 100-129 mg/dL Near or above optimalLDL 130-159 mg/dL Borderline highLDL 160-189 mg/dL HighLDL greater than 189 mg/dL Very high Cholesterol in VLDL Calc [Ma ss/Vol]Ordered By: Adam Young on 12-08-2021 Cholesterol in VLDL [Mass/Vol] 37 mg/dL [facility] No Panel InformationOrdered By: Adam Young on 12-08-2021 25-Hydroxy Vitamin D Total 50.6 ng/mL 30-100 [facility] Comment on above: VITAMIN D STATUS 25( [...] mg/dL 29-71 [facility] Comment on above: HDL CHOL ATP-III CLA SSIFICATION Cardiovascular RiskHDL > or equal to 60 mg/dL LOWHDL < 40 mg/dL HIGH Serum or plasma total choles terol/high density lipoprotein (HDL) cholesterol mass ratOrdered By: Adam Young on 12-08-2021 Cholesterol.total/Ch olesterol in HDL [Mass ratio] 4.4 {ratio} <5.0 [facility] TSH DL <= 0.005 mIU/L QnOrde red By: Adam Young on 12-08-2021 TSH Qn 0.75 m[IU]/L 0.45-5.33 [facility] Triglyceride [Mass/volume] i n Serum or PlasmaOrdered By: Adam Young on 12-08-2021 Triglyceride [Mass/Vol] 188 mg/dL 35-149 [facility] Comment on above: TRIG ATP III CLASSIF ICATIONTRIG less than 150 mg/dL NormalTRIG 150-199 mg/dL Borderline highTRIG 200-500 mg/dL High TRIG greater than 500 mg/dL Very highStandard traceable to the Center for Disease Conrtrol and Prevention (CDC) test method. Covid-19 PCR ([facility])on SARS-CoV-2 (COVID-19) RNA TALHA+probe Ql (Unsp spec) Not detected Normal NOT DETECTED [facility] Comment on above: Result Comment: When diagnostic [...] for this test is supported by the Personal Security Specialist of Health and Human Service's declaration [...] MP #### [facility] [address] [place] [address] Dr. Nilay Gibbs ETHANOL (BLD ALC)on 12-08-19 22 Ethanol [Mass/Vol] 288 mg/dL Normal [facility] Comment on above: Performed By: #### C MP #### [facility] [address] [place] [address] Dr. Nilay Gibbs ALC NOTE NOTE: 80 mg/dl is th e legal limit for a blood alcohol level Normal [facility] Comment on above: Performed By: #### C MP #### [facility] [address] [place] [address] Dr. Nilay Gibbs Performed By: #### A MM #### [facility] [address] [place] [address] Dr. Nilay Gibbs Ethanol [Mass/Vol] 130 mg/dL Normal [facility] Comment on above: Performed By: #### A MM #### [facility] [address] [place] [address] Dr. Nilay Gibbs Ethanol [Mass/Vol] 196 mg/dL Normal [facility] Comment on above: Performed By: #### A MM #### [facility] [address] [place] [address] Dr. Nilay Gibbs ACETAMINOPHENon 12-06-2021 Acetaminophen [Mass/Vol] ug/mL Critically low 10.0-30.0 [facility] Comment on above: Performed By: #### A CET #### [facility] [address] [address] [address] Nilay Gibbs AMMONIAon 12-06-2021 Ammonia (P) [Moles/Vol] 22 umol/L Normal 11-32 [facility] Comment on above: Performed By: #### A MM #### [facility] [address] [place] [address] Dr. Nilay Gibbs CBC AUTO DIFFon 12-06-2021 BASO # 0.0 103/ul Normal 0.0-0.1 [facility] Comment on above: Performed By: #### A MM #### [facility] [address] [place] [address] Dr. Nilay Gibbs Basophils/100 WBC (Bld) 0.5 % Normal 0.2-2.0 [facility] Comment on above: Performed By: #### A MM #### [facility] [address] [place] [address] Dr. Nilay Gibbs EO # 0.1 103/ul Normal 0.0-0.7 [facility] Comment on above: Performed By: #### A MM #### [facility] [address] [place] [address] Dr. Nilay Gibbs Eosinophils/100 WBC (Bld) 1.0 % Normal 0.9-7.0 [facility] Comment on above: Performed By: #### A MM #### [facility] [address] [place] [address] Dr. Nilay Gibbs Erythrocyte distribution width (RBC) [Ratio] 12.9 % Normal 11.0-15.0 [facility] Comment on above: Performed By: #### A MM #### [facility] [address] [place] [address] Dr. Nilay Gibbs Hematocrit (Bld) [Volume fraction] 40.5 % Critically low 42.0-54.0 [facility] Comment on above: Performed By: #### A MM #### [facility] [address] [place] [address] Dr. Nilay Gibbs Hemoglobin (Bld) [Mass/Vol] 13.9 g/dL Critically low 14.0-18.0 [facility] Comment on above: Performed By: #### A MM #### [facility] [address] [place] [address] Dr. Nilay Gibbs IG # 0.02 10e3/ul Normal 0.00-0.03 [facility] Comment on above: Performed By: #### A MM #### [facility] [address] [place] [address] Dr. Nilay Gibbs IG % 0.3 % Normal 0.0-0.5 [facility] Comment on above: Performed By: #### A MM #### [facility] [address] [place] [address] Dr. Nilay Gibbs LYMPH # 2.7 103/ul Normal 1.2-3.8 [facility] Comment on above: Performed By: #### A MM #### [facility] [address] [place] [address] Dr. Nilay Gibbs Lymphocytes/100 WBC (Bld) 45.2 % Normal 20.5-60.0 [facility] Comment on above: Performed By: #### A MM #### [facility] [address] [place] [address] Dr. Nilay Gibbs MANUAL DIFF REQ NO Normal [facility] Comment on above: Performed By: #### A MM #### [facility] [address] [place] [address] Dr. Nilay Gibbs MCH (RBC) [Entitic mass] 29.8 pg Normal 25.9-34.0 [facility] Comment on above: Performed By: #### A MM #### [facility] [address] [place] [address] Dr. Nilay Gibbs MCHC (RBC) [Mass/Vol] 34.3 g/dL Normal 29.9-35.2 [facility] Comment on above: Performed By: #### A MM #### [facility] [address] [place] [address] Dr. Nilay Gibbs MCV (RBC) [Entitic vol] 86.9 fL Normal 80.0-94.0 [facility] Comment on above: Performed By: #### A MM #### [facility] [address] [address] [address] Nilay Gibbs MONO # 0.4 103/ul Normal 0.3-0.8 [facility] Comment on above: Performed By: #### A MM #### [facility] [address] [address] [address] Nilay Gibbs Monocytes/100 WBC (Bld) 6.3 % Normal 1.7-12.0 [facility] Comment on above: Performed By: #### A MM #### [facility] [address] [place] [address] Dr. Nliay Gibbs NEUT # 2.7 103/ul Normal 1.4-6.5 [facility] Comment on above: Performed By: #### A MM #### [facility] [address] [place] [address] Dr. Nilay Gibbs Neutrophils/100 WBC (Bld) 46.7 % Normal 43.0-75.0 [facility] Comment on above: Performed By: #### A MM #### [facility] [address] [place] [address] Dr. Nilay Gibbs Platelet mean volume (Bld) [Entitic vol] 10.4 fL Normal 9.5-13.5 [facility] Comment on above: Performed By: #### A MM #### [facility] [address] [place] [address] Dr. Nilay Gibbs PLT 237 103/ul Normal 150-450 [facility] Comment on above: Performed By: #### A MM #### [facility] [address] [place] [address] Dr. Nilay Gibbs RBC 4.66 106/ul Critically low 4.70-6.10 [facility] Comment on above: Performed By: #### A MM #### [facility] [address] [place] [address] Dr. Nilay Gibbs WBC 5.9 103/ul Normal 4.0-11.0 [facility] Comment on above: Performed By: #### A MM #### [facility] [address] [place] [address] Dr. Nilay Gibbs DRUG SCREEN RAPID (URINE)on 12-06-2021 AMP Negative Normal NEGATIVE [facility] Comment on above: Performed By: #### D RUGRPD #### [facility] [address] [place] [address] Dr. Nilay Gibbs BAR Negative Normal NEGATIVE [facility] Comment on above: Performed By: #### D RUGRPD #### [facility] [address] [place] [address] Dr. Nilay Gibbs BUP Negative Normal NEGATIVE [facility] Comment on above: Performed By: #### D RUGRPD #### [facility] [address] [place] [address] Dr. Nilay Gibbs BZO Positive Abnormal NEGATIVE [facility] Comment on above: Performed By: #### D RUGRPD #### [facility] [address] [place] [address] Dr. Nilay Gibbs ROQUE Negative Normal NEGATIVE [facility] Comment on above: Performed By: #### D RUGRPD #### [facility] [address] [place] [address] Dr. Nilay Gibbs CUT-OFFS SEE BELOW Normal [facility] Comment on above: Result Comment: AMP [...] RUGRPD #### [facility] [address] [place] [address] Dr. Nilay Gibbs DRUG CUT HEADER DRUG CLASS TEST SYST EM CUT-OFF CONCENTRATIONS ARE FOLLOWS: Normal [facility] Comment on above: Performed By: #### D RUGRPD #### [facility] [address] [address] [address] Nilay Gibbs mAMP Negative Normal NEGATIVE [facility] Comment on above: Performed By: #### D RUGRPD #### [facility] [address] [address] [address] Nilay Gibbs MTD Negative Normal NEGATIVE [facility] Comment on above: Performed By: #### D RUGRPD #### [facility] [address] [address] [address] Nilay Gibbs OPI Negative Normal NEGATIVE [facility] Comment on above: Performed By: #### D RUGRPD #### [facility] [address] [place] [address] Dr. Nilay Gibbs OXY Negative Normal NEGATIVE [facility] Comment on above: Performed By: #### D RUGRPD #### [facility] [address] [place] [address] Dr. Nilay Gibbs PCP Negative Normal NEGATIVE [facility] Comment on above: Performed By: #### D RUGRPD #### [facility] [address] [place] [address] Dr. Nilay Gibbs PPX Negative Normal NEGATIVE [facility] Comment on above: Performed By: #### D RUGRPD #### [facility] [address] [place] [address] Dr. Nilay Gibbs TCA Negative Normal NEGATIVE [facility] Comment on above: Performed By: #### D RUGRPD #### [facility] [address] [place] [address] Dr. Nilay Gibbs THC Negative Normal NEGATIVE [facility] Comment on above: Performed By: #### D RUGRPD #### [facility] [address] [place] [address] Dr. Nilay Gibbs ETHANOL (BLD ALC)on 12-07-19 22 ALC NOTE NOTE: 80 mg/dl is th e legal limit for a blood alcohol level Normal [facility] Comment on above: Performed By: #### C MP #### [facility] [address] [place] [address] Dr. Nilay Gibbs Ethanol [Mass/Vol] 336 mg/dL Normal [facility] Comment on above: Performed By: #### C MP #### [facility] [address] [place] [address] Dr. Nilay Gibbs PROF 14(COMP METB)on 022 Albumin [Mass/Vol] 4.2 g/dL Normal 3.4-5.0 [facility] Comment on above: Performed By: #### C MP #### [facility] [address] [place] [address] Dr. Nilay Gibbs Albumin/Globulin [Mass ratio] 1.3 {ratio} Normal [facility] Comment on above: Performed By: #### C MP #### [facility] [address] [place] [address] Dr. Nilay Gibbs ALP [Catalytic activity/Vol] 104 U/L Normal 46-116 [facility] Comment on above: Performed By: #### C MP #### [facility] [address] [place] [address] Dr. Nilay Gibbs ALT [Catalytic activity/Vol] 41 U/L Normal 16-63 [facility] Comment on above: Performed By: #### C MP #### [facility] [address] [place] [address] Dr. Nilay Gibbs Anion gap [Moles/Vol] 11.5 mmol/L Normal [facility] Comment on above: Performed By: #### C MP #### [facility] [address] [place] [address] Dr. Nilay Gibbs AST [Catalytic activity/Vol] 37 U/L Normal 15-37 [facility] Comment on above: Performed By: #### C MP #### [facility] [address] [place] [address] Dr. Nilay Gibbs Bilirubin [Mass/Vol] 0.2 mg/dL Normal 0.2-1.0 [facility] Comment on above: Performed By: #### C MP #### [facility] [address] [place] [address] Dr. Nilay Gibbs Calcium [Mass/Vol] 8.6 mg/dL Normal 8.5-10.1 [facility] Comment on above: Performed By: #### C MP #### [facility] [address] [place] [address] Dr. Nilay Gibbs Chloride [Moles/Vol] 97 mmol/L Critically low 98-107 [facility] Comment on above: Performed By: #### C MP #### [facility] [address] [address] [address] Nilay Gibbs CO2 [Moles/Vol] 26.0 mmol/L Normal 21.0-32.0 [facility] Comment on above: Performed By: #### C MP #### [facility] [address] [place] [address] Dr. Nilay Gibbs Creatinine [Mass/Vol] 1.47 mg/dL Critically high 0.70-1.30 [facility] Comment on above: Performed By: #### C MP #### [facility] [address] [place] [address] Dr. iNlay Gibbs EGFR-AF BRUNEIAN >60 Normal >=60 [facility] Comment on above: Performed By: #### C MP #### [facility] [address] [place] [address] Dr. Nilay Gibbs EGFR-NON AF BRUNEIAN 56 mL/min/1.73m2 Critically low >=60 [facility] Comment on above: Performed By: #### C MP #### [facility] [address] [place] [address] Dr. Nilay Gibbs Globulin (S) [Mass/Vol] 3.2 g/dL Normal [facility] Comment on above: Performed By: #### C MP #### [facility] [address] [address] [address] Nilay Gibbs Glucose [Mass/Vol] 117 mg/dL Critically high 74-[address] [facility] Comment on above: Performed By: #### C MP #### [facility] [address] [place] [address] Dr. Nilay Gibbs Potassium [Moles/Vol] 3.5 mmol/L Normal 3.5-5.1 [facility] Comment on above: Performed By: #### C MP #### [facility] [address] [place], [place] [address] Dr. Nilay Gibbs Protein [Mass/Vol] 7.4 g/dL Normal 6.4-8.2 [facility] Comment on above: Performed By: #### C MP #### [facility] [address] [place], [place] [address] Dr. Nilay Gibbs Sodium [Moles/Vol] 131 mmol/L Critically low 136-145 [facility] Comment on above: Performed By: #### C MP #### [facility] [address] [place], [place] [address] Dr. Nilay Gibbs Urea nitrogen [Mass/Vol] 14.0 mg/dL Normal 7.0-18.0 [facility] Comment on above: Performed By: #### C MP #### [facility] [address] [address] [address] Nilay Gibbs Urea nitrogen/Creatinine [Mass ratio] 9.5 mg/mg Normal [facility] Comment on above: Performed By: #### C MP #### [facility] [address] [place], [place] [address] Dr. Nilay Gibbs SALICYLATEon 12-06-2021 SALICYLATE <2.8 Normal <=19.9 [facility] Comment on above: Performed By: #### A MM #### [facility] [address] [place], [place] [address] Dr. Nialy Gibbs MRI Shoulder w/o Lefton 10-30 MRI [...] Ware on 11/11/2021 0955 Normal [facility] Specialist Activated partial thrombopla stin time (aPTT) in platelet poor plasma by coagulation aOrdered By: Kristal Goldberg on 09-27-2021 aPTT Coag (PPP) [Time] 34.7 s 25.1-36.5 [facility] Albumin [Mass/volume] in Ser um or PlasmaOrdered By: Kristal Goldberg on 09-27-2021 Albumin [Mass/Vol] 4.1 g/dL 3.2-5.5 [facility] Basophils Auto (Bld) [#/Vol] Ordered By: Kristal Goldberg on 09-27-2021 Basophils (Bld) [#/Vol] 0.0 10*3/uL 0.0-0.2 [facility] Basophils/100 WBC Auto (Bld) Ordered By: Kristal Goldberg on 09-27-2021 Basophils/100 WBC (Bld) 0.3 % . [facility] Bilirubin Auto test strip Ql (U)Ordered By: Kristal Goldberg on 09-27-2021 Bilirubin Ql (U) Negative Negative [facility] Blood hemoglobin measurement (mass/volume)Ordered By: Kristal Goldberg on 09-27-2021 Hemoglobin (Bld) [Mass/Vol] 13.6 g/dL 13.0-17.0 [facility] Blood leukocytes automated c ount (number/volume)Ordered By: Kristal Goldberg on 09-27-2021 WBC (Bld) [#/Vol] 5.7 10*3/uL 4.5-11.0 [facility] CBC AUTO DIFFon 09-27-2021 BASO # 0.0 103/ul Normal 0.0-0.1 [facility] Comment on above: Performed By: #### A MM #### [facility] [address] [address] [address] Nilay Gibbs Basophils/100 WBC (Bld) 0.5 % Normal 0.2-2.0 [facility] Comment on above: Performed By: #### A MM #### [facility] [address] [address] [address] Nilay Gibbs EO # 0.1 103/ul Normal 0.0-0.7 [facility] Comment on above: Performed By: #### A MM #### [facility] [address] [address] [address] Nilay Gibbs Eosinophils/100 WBC (Bld) 1.6 % Normal 0.9-7.0 [facility] Comment on above: Performed By: #### A MM #### [facility] [address] [address] [address] Nilay Gibbs Erythrocyte distribution width (RBC) [Ratio] 14.0 % Normal 11.0-15.0 [facility] Comment on above: Performed By: #### A MM #### [facility] [address] [address] [address] Nilay Gibbs Hematocrit (Bld) [Volume fraction] 40.2 % Critically low 42.0-54.0 [facility] Comment on above: Performed By: #### A MM #### [facility] [address] [address] [address] Nilay Gibbs Hemoglobin (Bld) [Mass/Vol] 13.7 g/dL Critically low 14.0-18.0 [facility] Comment on above: Performed By: #### A MM #### [facility] [address] [address] [address] Nilay Gibbs IG # 0.01 10e3/ul Normal 0.00-0.03 [facility] Comment on above: Performed By: #### A MM #### [facility] [address] [place] [address] Dr. Nilay Gibbs IG % 0.2 % Normal 0.0-0.5 [facility] Comment on above: Performed By: #### A MM #### [facility] [address] [place] [address] Dr. Nilay Gibbs LYMPH # 2.1 103/ul Normal 1.2-3.8 [facility] Comment on above: Performed By: #### A MM #### [facility] [address] [place] [address] Dr. Nilay Gibbs Lymphocytes/100 WBC (Bld) 37.1 % Normal 20.5-60.0 [facility] Comment on above: Performed By: #### A MM #### [facility] [address] [place] [address] Dr. Nilay Gibbs MANUAL DIFF REQ NO Normal [facility] Comment on above: Performed By: #### A MM #### [facility] [address] [place] [address] Dr. Nilay Gibbs MCH (RBC) [Entitic mass] 30.1 pg Normal 25.9-34.0 [facility] Comment on above: Performed By: #### A MM #### [facility] [address] [place] [address] Dr. Nilay Gibbs MCHC (RBC) [Mass/Vol] 34.1 g/dL Normal 29.9-35.2 [facility] Comment on above: Performed By: #### A MM #### [facility] [address] [place] [address] Dr. Nilay Gibbs MCV (RBC) [Entitic vol] 88.4 fL Normal 80.0-94.0 [facility] Comment on above: Performed By: #### A MM #### [facility] [address] [place] [address] Dr. Nilay Gibbs MONO # 0.4 103/ul Normal 0.3-0.8 [facility] Comment on above: Performed By: #### A MM #### [facility] [address] [place] [address] Dr. Nilay Gibbs Monocytes/100 WBC (Bld) 7.2 % Normal 1.7-12.0 [facility] Comment on above: Performed By: #### A MM #### [facility] [address] [place] [address] Dr. Nilay Gibbs NEUT # 3.1 103/ul Normal 1.4-6.5 [facility] Comment on above: Performed By: #### A MM #### [facility] [address] [place] [address] Dr. Nilay Gibbs Neutrophils/100 WBC (Bld) 53.4 % Normal 43.0-75.0 [facility] Comment on above: Performed By: #### A MM #### [facility] [address] [place] [address] Dr. Nilay Gibbs Platelet mean volume (Bld) [Entitic vol] 10.3 fL Normal 9.5-13.5 [facility] Comment on above: Performed By: #### A MM #### [facility] [address] [place] [address] Dr. Nilay Gibbs PLT 254 103/ul Normal 150-450 [facility] Comment on above: Performed By: #### A MM #### [facility] [address] [place] [address] Dr. Nilay Gibbs RBC 4.55 106/ul Critically low 4.70-6.10 [facility] Comment on above: Performed By: #### A MM #### [facility] [address] [place] [address] Dr. Nilay Gibbs WBC 5.7 103/ul Normal 4.0-11.0 [facility] Comment on above: Performed By: #### A MM #### [facility] [address] [place] [address] HEAD WO CONon [...] Normal The [facility] CTA HEAD WO W CONon 09-28-19 CTA [...] by: NEL KING Date: 2021-09-27 12:19 Normal [facility] CTA NECK WO W CONon 09-28-19 [...] by: NEL KING Date: 2021-09-27 12:06 Normal [facility] Creatine kinase [Enzymatic a ctivity/volume] in Serum or PlasmaOrdered By: Kristal Goldberg on 09-27-2021 CK [Catalytic activity/Vol] 181 U/L 22-269 [facility] Creatinine and Glomerular fi ltration rate.predicted panel (S/P/Bld)Ordered By: Kristal Goldberg on 09-27-2021 Creatinine [Mass/Vol] 1.36 mg/dL 0.64-1.27 [facility] Eosinophils Auto (Bld) [#/Vo l]Ordered By: Kristal Goldberg on 09-27-2021 Eosinophils (Bld) [#/Vol] 0.1 10*3/uL 0.0-0.45 [facility] Eosinophils/100 WBC Auto (Bl d)Ordered By: Kristal Goldberg on 09-27-2021 Eosinophils/100 WBC (Bld) 1.2 % . [facility] Erythrocyte distribution wid th Auto (RBC) [Ratio]Ordered By: Kristal Goldberg on 09-27-2021 Erythrocyte distribution width (RBC) [Ratio] 14.5 % 12.0-14.8 [facility] Estimated glomerular filtrat ion rate (GFR) non- AmericanOrdered By: Kristal Goldberg on 09-27-2021 GFR/1.73 sq M.predicted among non-blacks MDRD (S/P/Bld) [Vol rate/Area] > 60 mL/Min [facility] Globulin Calc (S) [Mass/Vol] Ordered By: Kristal Goldberg on 09-27-2021 Globulin (S) [Mass/Vol] 2.4 g/dL [facility] Hematocrit Auto (Bld) [Volum e fraction]Ordered By: Kristal Goldberg on 09-27-2021 Hematocrit (Bld) [Volume fraction] 40.8 % 38.8-50.0 [facility] Ketones Auto test strip (U) [Mass/Vol]Ordered By: Kristal Goldberg on 09-27-2021 Ketones (U) [Mass/Vol] Negative Negative [facility] Laboratory - CoagulationOrde red By: Kristal Goldberg on 09-27-2021 PT Coag (PPP) [Time] 11.8 s 9.0-12.9 [facility] - Hematology and Cell countsOrdered By: Kristal Goldberg on 09-27-2021 Nucleated RBC/100 WBC (Bld) [Ratio] 0.0 % 0-0.5 [facility] Lymphocytes Auto (Bld) [#/Vo l]Ordered By: Kristal Goldberg on 09-27-2021 Lymphocytes (Bld) [#/Vol] 1.8 10*3/uL 1.00-4.8 [facility] Lymphocytes/100 WBC Auto (Bl d)Ordered By: Kristal Goldberg on 09-27-2021 Lymphocytes/100 WBC (Bld) 31.2 % . [facility] MCH Auto (RBC) [Entitic mass ]Ordered By: Kristal Goldberg on 09-27-2021 MCH (RBC) [Entitic mass] 30.1 pg 27.5-35.2 [facility] MCHC Auto (RBC) [Mass/Vol]Or dered By: Kristal Goldberg on 09-27-2021 MCHC (RBC) [Mass/Vol] 33.4 g/dL 32.5-35.6 [facility] MCV Auto (RBC) [Entitic vol] Ordered By: Kristal Goldberg on 09-27-2021 MCV (RBC) [Entitic vol] 90.3 fL 83.5-101 [facility] Monocytes Auto (Bld) [#/Vol] Ordered By: Kristal Goldberg on 09-27-2021 Monocytes (Bld) [#/Vol] 0.3 10*3/uL 0.0-0.8 [facility] Monocytes/100 WBC Auto (Bld) Ordered By: Kristal Goldberg on 09-27-2021 Monocytes/100 WBC (Bld) 6.0 % . [facility] Neutrophils Auto (Bld) [#/Vo l]Ordered By: Kristal Goldberg on 09-27-2021 Neutrophils (Bld) [#/Vol] 3.5 10*3/uL 1.8-7.7 [facility] Neutrophils/100 WBC Auto (Bl d)Ordered By: Kristal Goldberg on 09-27-2021 Neutrophils/100 WBC (Bld) 61.3 % . [facility] No Panel InformationOrdered By: Kristal Goldberg on 09-27-2021 Estimated GFR () > 60 mL/Min [facility] Comment on above: GFR estimated refere nce range: According to KDOQI guidelines, <60 ml/min/1.73m2 is sufficient to diagnose a patient with chronic kidney disease. Pharmacy Creatinine Clearance (Chem 94.06 [facility] PROF CHEM 8 (BAS METB)on Anion gap [Moles/Vol] 10.0 mmol/L Normal [facility] Comment on above: Performed By: #### C MP #### [facility] [address] [place] [address] Dr. Nilay Gibbs Calcium [Mass/Vol] 9.4 mg/dL Normal 8.5-10.1 [facility] Comment on above: Performed By: #### C MP #### [facility] [address] [address] [address] Nilay Gibbs Chloride [Moles/Vol] 103 mmol/L Normal 98-107 [facility] Comment on above: Performed By: #### C MP #### [facility] [address] [place] [address] Dr. Nilay Gibbs CO2 [Moles/Vol] 27.6 mmol/L Normal 21.0-32.0 [facility] Comment on above: Performed By: #### C MP #### [facility] [address] [place] [address] Dr. Nilay Gibbs Creatinine [Mass/Vol] 1.39 mg/dL Critically high 0.70-1.30 [facility] Comment on above: Performed By: #### C MP #### [facility] [address] [place] [address] Dr. Nilay Gibbs EGFR-AF BRUNEIAN >60 Normal >=60 [facility] Comment on above: Performed By: #### C MP #### [facility] [address] [place] [address] Dr. Nilay Gibbs EGFR-NON AF BRUNEIAN 60 mL/min/1.73m2 Normal >=60 [facility] Comment on above: Performed By: #### C MP #### [facility] [address] [place] [address] Dr. Nilay Gibbs Glucose [Mass/Vol] 115 mg/dL Critically high 74-[address] [facility] Comment on above: Performed By: #### C MP #### [facility] [address] [place] [address] Dr. Nilay Gibbs Potassium [Moles/Vol] 3.6 mmol/L Normal 3.5-5.1 [facility] Comment on above: Performed By: #### C MP #### [facility] [address] [address] [address] Nilay Gibbs Sodium [Moles/Vol] 137 mmol/L Normal 136-145 [facility] Comment on above: Performed By: #### C MP #### [facility] [address] [place] [address] Dr. Nilay Gibbs Urea nitrogen [Mass/Vol] 17.0 mg/dL Normal 7.0-18.0 [facility] Comment on above: Performed By: #### C MP #### [facility] [address] [place] [address] Dr. Nilay Gibbs Urea nitrogen/Creatinine [Mass ratio] 12.2 mg/mg Normal [facility] Comment on above: Performed By: #### C MP #### [facility] [address] [place] [address] Dr. Nilay Gibbs PROTIMEon 09-27-2021 INR Coag (PPP) [Relative time] 0.99 {INR} Normal [facility] Comment on above: Performed By: #### P T, PTT #### [facility] [address] [place] [address] Dr. Nilay Gibbs INR GUIDELINES SEE BELOW Normal [facility] [place] [facility] Comment on above: Result Comment: PETRONA RED INR: 2.0 - 3.0 CONDITIONS NOT LISTED BELOW 2.5 - 3.5 FOR PROSTHETIC HEART VALVE REPLACEMENT 2.5 - 3.5 RECURRENT THROMBOSIS Performed By: #### P T, PTT #### [facility] [address] [place] [address] Dr. Nilay Gibbs PT Coag (PPP) [Time] 10.7 s Normal 9.0-11.6 [facility] Comment on above: Performed By: #### P T, PTT #### [facility] [address] [place] [address] Dr. Nilay Gibbs PTTon 09-27-2021 aPTT Coag (Bld) [Time] 29.1 s Normal 22.3-36.2 [facility] Comment on above: Performed By: #### P T, PTT #### [facility] [address] [address] [address] Nilay Gibbs Platelet mean volume Auto (B ld) [Entitic vol]Ordered By: Kristal Goldberg on 09-27-2021 Platelet mean volume (Bld) [Entitic vol] 8.7 fL 6.6-10.1 [facility] Platelet poor plasma interna tional normalized ratio (INR) by coagulation assay (relatOrdered By: Kristal Goldberg on 09-27-2021 INR Coag (PPP) [Relative time] 1.1 {INR} [facility] Comment on above: INR Therapeutic Rang e [...] 10*3/uL 150-450 [facility] Protein Auto test strip (U) [Mass/Vol]Ordered By: Kristal Goldberg on 09-27-2021 Protein (U) [Mass/Vol] Negative Negative [facility] Protein [Mass/volume] in Ser um or PlasmaOrdered By: Kristal Goldberg on 09-27-2021 Protein [Mass/Vol] 6.5 g/dL 6.1-7.9 [facility] RBC Auto (Bld) [#/Vol]Ordere d By: Kristal Goldberg on 09-27-2021 RBC (Bld) [#/Vol] 4.52 10*6/uL 3.90-5.60 [facility] Serum or plasma alanine marquez otransferase measurement without P-5'-P (enzymatic activiOrdered By: Kristal Goldberg on 09-27-2021 ALT No additional P-5'-P [Catalytic activity/Vol] 22 U/L 10-60 [facility] Serum or plasma albumin/glob ulin mass ratioOrdered By: Kristal Goldberg on 09-27-2021 Albumin/Globulin [Mass ratio] 1.7 {ratio} [facility] Serum or plasma alkaline kimi sphatase measurement (enzymatic activity/volume)Ordered By: Kristal Goldberg on 09-27-2021 ALP [Catalytic activity/Vol] 72 U/L 32-92 [facility] Serum or plasma aspartate am inotransferase measurement (enzymatic activity/volume)Ordered By: Kristal Goldberg on 09-27-2021 AST [Catalytic activity/Vol] 24 U/L 10-42 [facility] Serum or plasma calcium isabel urement (mass/volume)Ordered By: Kristal Goldberg on 09-27-2021 Calcium [Mass/Vol] 9.6 mg/dL 8.2-10.2 [facility] Serum or plasma chloride airam surement (moles/volume)Ordered By: Kristal Goldberg on 09-27-2021 Chloride [Moles/Vol] 98 mmol/L 95-114 [facility] Serum or plasma creatine kin ase MB (CKMB)/total creatine kinase (CK) ratio by calculaOrdered By: Kristal Goldberg on 09-27-2021 CK.MB Calc [Catalytic fraction] 1.7 % 0.00-2.50 [facility] Serum or plasma creatine kin ase MB measurement (mass/volume)Ordered By: Kristal Goldberg on 09-27-2021 CK.MB [Mass/Vol] 3.1 ng/mL 0.6-6.3 [facility] Serum or plasma glucose isabel urement (mass/volume)Ordered By: Kristal Goldberg on 09-27-2021 Glucose [Mass/Vol] 94 mg/dL 70-100 [facility] Comment on above: ADA recommended refe [...] mmol/L 3.5-5.1 [facility] Serum or plasma sodium measu rement (moles/volume)Ordered By: Kristal Goldberg on 09-27-2021 Sodium [Moles/Vol] 135 mmol/L 136-146 [facility] Serum or plasma total biliru bin measurement (mass/volume)Ordered By: Kristal Goldberg on 09-27-2021 Bilirubin [Mass/Vol] 0.8 mg/dL 0.3-1.2 [facility] Serum or plasma total carbon dioxide measurement (moles/volume)Ordered By: Kristal Goldberg on 09-27-2021 CO2 [Moles/Vol] 24.8 mmol/L 22.0-30.0 [facility] Serum or plasma urea nitroge n measurement (mass/volume)Ordered By: Kristal Goldberg on 09-27-2021 Urea nitrogen [Mass/Vol] 13 mg/dL 9-23 [facility] TROPONIN, HIGH SENSITIVITYon 09-27-2021 HSTROP 4.5 pg/mL Normal 4.0-76.1 [facility] Comment on above: Result Comment: CUT- OFF POINTS HAVE BEEN ESTABLISHED BASED ON THE FOURTH UNIVERSAL DEFINITIONS OF MYOCARDIAL INFARCTION. THE UPPER REFERENCE LIMIT (URL) OF TROPONIN, DEFINED THE 99TH PERCENTILE OF cTnI DISTRIBUTION IN A REFERENCE POPULATION, HAS BEEN CONFIRMED THE DECISION THRESHOLD FOR TX DIAGNOSIS. Performed By: #### C #### [facility] [address] [place] [address] Dr. Nilay Gibbs Troponin I.cardiac [Mass/vol ume] in Serum or Plasma by High sensitivity methodOrdered By: Kristal Goldberg on 09-27-2021 Troponin I.cardiac High sensitivity method [Mass/Vol] < 3 pg/mL 0-20 [facility] Urine appearanceOrdered By: Kristal Goldberg on 09-27-2021 Appearance (U) Clear Clear [facility] Urine colorOrdered By: Aurora Goldberg on 09-27-2021 Color (U) Yellow Yellow [facility] Urine glucose measurement by automated test strip (mass/volume)Ordered By: Kristal Goldberg on 09-27-2021 Glucose Auto test strip (U) [Mass/Vol] Normal mg/dL Normal [facility] Urine hemoglobin detection b y automated test stripOrdered By: Kristal Goldberg on 09-27-2021 Hemoglobin Auto test strip Ql (U) Negative Negative [facility] Urine leukocyte esterase det ection by automated test stripOrdered By: Kristal Goldberg on 09-27-2021 Leukocyte esterase Auto test strip Ql (U) Negative Negative [facility] Urine nitrite detection by a utomated test stripOrdered By: Kristal Goldberg on 09-27-2021 Nitrite Auto test strip Ql (U) Negative Negative [facility] Urobilinogen Auto test strip (U) [Mass/Vol]Ordered By: Kristal Goldberg on 09-27-2021 Urobilinogen (U) [Mass/Vol] Normal mg/dL Normal [facility] pH Auto test strip (U)Ordere d By: Kristal Goldberg on 09-27-2021 pH (U) 1.005 [pH] 1.001-1.030 [facility] pH (U) 5.5 [pH] 5.0-9.0 [facility] CT LUMBAR SPINE WO CONTRASTo n 07-12-2018 [...] Mike Felipe MD 07/12/18 Final result Normal [facility] CT THORACIC SPINE WO CONTRAS [...] Mike Felipe MD 07/12/18 Final result Normal [facility] Vital Signs Date Time Vital Sign Value Performing Clinician Facility 04-20-2024 10:02-0500 Body height 188 cm Marina Rees PA Work Phone: [facility] 04-20-2024 10:02-0500 Body mass index (BMI) [Ratio] 29.99 kg/m2 Marina Hemmer PA Work Phone: [facility] 04-20-2024 10:02-0500 Body weight 105.96 kg Marina Hemmer PA Work Phone: [facility] 04-20-2024 10:02-0500 Diastolic blood pressure 116 mm[Hg] Marina Hemmer PA Work Phone: [facility] 04-20-2024 10:02-0500 Heart rate 87 /min Marina Hemmer PA Work Phone: [facility] 04-20-2024 10:02-0500 Respiratory rate 16 /min Marina Hemmer PA Work Phone: [facility] 04-20-2024 10:02-0500 SaO2% (BldA) [Mass fraction] 98 % Marina Hemmer PA Work Phone: [facility] 04-20-2024 10:02-0500 Systolic blood pressure 158 mm[Hg] Marina Hemmer PA Work Phone: [facility] 01-21-2024 08:48-0500 Body height 188 cm Marina Hemmer PA Work Phone: [facility] 01-21-2024 08:48-0500 Body mass index (BMI) [Ratio] 31.35 kg/m2 Marina Hemmer PA Work Phone: [facility] 01-21-2024 08:48-0500 Body weight 110.77 kg Marina Hemmer PA Work Phone: [facility] 01-21-2024 08:48-0500 Diastolic blood pressure 101 mm[Hg] Marina Hemmer PA Work Phone: [facility] 01-21-2024 08:48-0500 Heart rate 87 /min Marina Hemmer PA Work Phone: [facility] 01-21-2024 08:48-0500 Respiratory rate 17 /min Marina Hemmer PA Work Phone: [facility] 01-21-2024 08:48-0500 SaO2% (BldA) [Mass fraction] 98 % Marina Hemmer PA Work Phone: [facility] 01-21-2024 08:48-0500 Systolic blood pressure 158 mm[Hg] Marina Hemmer PA Work Phone: [facility] 01-04-2024 08:12-0500 Body height 188 cm Delmy Boyle MD Work Phone: [facility] 01-04-2024 08:12-0500 Body mass index (BMI) [Ratio] 30.39 kg/m2 Delmy Boyle MD Work Phone: [facility] 01-04-2024 08:12-0500 Body weight 107.4 kg Delmy Boyle MD Work Phone: [facility] 01-04-2024 08:12-0500 Diastolic blood pressure 77 mm[Hg] Delmy Boyle MD Work Phone: [facility] 01-04-2024 08:12-0500 Heart rate 84 /min Delmy Boyle MD Work Phone: [facility] 01-04-2024 08:12-0500 Respiratory rate 18 /min Delmy Boyle MD Work Phone: [facility] 01-04-2024 08:12-0500 Systolic blood pressure 110 mm[Hg] Delmy Boyle MD Work Phone: [facility] 08-22-2023 12:40-0400 Body height 190.5 cm MD Leydi Aceves Work Phone: [facility] 08-22-2023 12:40-0400 Body mass index (BMI) [Ratio] 31.6 kg/m2 MD Leydi Aceves Work Phone: [facility] 08-22-2023 12:40-0400 Body temperature 98.6 [degF] MD Leydi Aceves Work Phone: [facility] 08-22-2023 12:40-0400 Body weight 114.81 kg MD Leydi Aceves Work Phone: [facility] 08-22-2023 12:40-0400 Heart rate 84 /min MD Leydi Aceves Work Phone: [facility] 08-22-2023 12:40-0400 Respiratory rate 18 /min MD Leydi Aceves Work Phone: [facility] 08-22-2023 12:40-0400 SaO2% (BldA) [Mass fraction] 97 % MD Leydi Aceves Work Phone: [facility] 06-24-2023 14:34-0400 Body mass index (BMI) [Ratio] 29.92 kg/m2 Delym Boyle MD Work Phone: [facility] 06-24-2023 14:34-0400 Body weight 105.69 kg Delmy Boyle MD Work Phone: [facility] 06-24-2023 14:34-0400 Diastolic blood pressure 87 mm[Hg] Delmy Boyle MD Work Phone: [facility] 06-24-2023 14:34-0400 Heart rate 89 /min Delmy Boyle MD Work Phone: [facility] 06-24-2023 14:34-0400 Respiratory rate 18 /min Delmy Boyle MD Work Phone: [facility] 06-24-2023 14:34-0400 SaO2% (BldA) [Mass fraction] 100 % Delmy Boyle MD Work Phone: [facility] 06-24-2023 14:34-0400 Systolic blood pressure 124 mm[Hg] Delmy Boyle MD Work Phone: [facility] 01-01-2022 11:34-0400 Body weight 99.79 kg Delmy Boyle MD Work Phone: [facility] 01-01-2022 11:34-0400 Diastolic blood pressure 65 mm[Hg] Delmy Boyle MD Work Phone: [facility] 01-01-2022 11:34-0400 Heart rate 65 /min Delmy Boyle MD Work Phone: [facility] 01-01-2022 11:34-0400 Systolic blood pressure 102 mm[Hg] Delmy Boyle MD Work Phone: [facility] 12-10-2021 15:30-0400 Diastolic blood pressure 71 mm[Hg] MD Leydi Aceves Work Phone: [facility] 12-10-2021 15:30-0400 Heart rate 70 /min MD Leydi Aceves Work Phone: [facility] 12-10-2021 15:30-0400 Respiratory rate 16 /min MD Leydi Aceves Work Phone: [facility] 12-10-2021 15:30-0400 SaO2% (BldA) [Mass fraction] 98 % MD Leydi Aceves Work Phone: [facility] 12-10-2021 15:30-0400 Systolic blood pressure 113 mm[Hg] MD Leydi Aceves Work Phone: [facility] 12-10-2021 07:30-0400 Body temperature 98 [degF] MD Leydi Aceves Work Phone: [facility] 12-08-2021 15:45-0400 Body height 190.5 cm MD Leydi Aceves Work Phone: [facility] 12-08-2021 08:56-0400 Body weight 99.79 kg MD Leydi Aceves Work Phone: [facility] 09-27-2021 21:38-0400 Heart rate 68 /min MD Leydi Aceves Work Phone: [facility] 09-27-2021 21:30-0400 Diastolic blood pressure 79 mm[Hg] MD Leydi Aceves Work Phone: [facility] 09-27-2021 21:30-0400 Respiratory rate 20 /min MD Leydi Aceves Work Phone: [facility] 09-27-2021 21:30-0400 SaO2% (BldA) [Mass fraction] 100 % MD Leydi Aceves Work Phone: [facility] 09-27-2021 21:30-0400 Systolic blood pressure 135 mm[Hg] MD Leydi Aceves Work Phone: [facility] 09-27-2021 18:31-0400 Body height 190.5 cm MD Leydi Aceves Work Phone: [facility] 09-27-2021 18:31-0400 Body temperature 98 [degF] MD Leydi Aceves Work Phone: [facility] 09-27-2021 18:31-0400 Body weight 99.79 kg MD Leydi Aceves Work Phone: [facility] Encounters Encounter Date Encounter Type Care Provider Facility Start: 05-18-2024 End: 05-18-2024 Bamboo flowsheet Marina Rees PA Work Phone: [facility] Start: 05-18-2024 End: 05-18-2024 Bamboo flowsheet Marina Rees PA Work Phone: [facility] Start: 05-10-2024 End: 05-11-2024 Refill Marina Rees PA Work Phone: [facility] Comment on above: Abscess of right ind ex finger Start: 05-02-2024 End: 05-02-2024 Refill Leydi Aceves MD Work Phone: [facility] Comment on above: 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) Start: 04-25-2024 End: 04-25-2024 Refill Marina Rees PA Work Phone: [facility] Comment on above: Abscess of right ind ex finger Start: 04-20-2024 End: 04-20-2024 Bamboo flowsheet Marina Rees PA Work Phone: [facility] Start: 04-20-2024 End: 04-20-2024 Bamboo flowsheet Marina Rees PA Work Phone: [facility] Start: 04-20-2024 End: 04-20-2024 Office outpatient visit 25 minutes Marina Rees PA Work Phone: [facility] Comment on above: Essential hypertensi on (CMS/HCC) (Primary Dx); Abscess of right index finger Start: 04-20-2024 End: 04-20-2024 ambulatory MARINA REES Not Available Start: 02-02-2024 End: 02-04-2024 Refill Marina Rees PA Work Phone: [facility] Comment on above: 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) Start: 01-25-2024 End: 02-04-2024 Refill Marina Rees PA Work Phone: [facility] Comment on above: 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) Start: 01-21-2024 End: 01-21-2024 Office outpatient visit 25 minutes Marina Rees PA Work Phone: [facility] [...] 01-04-2024 Subsequent hospital visit by physician [facility] Work Phone: [facility] General Comment on above: 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] Start: 01-04-2024 End: 01-04-2024 [facility]ulatory [facility] Start: 01-04-2024 End: 01-04-2024 Patient encounter procedure Delmy Boyle MD Work Phone: Rheumatology Comment on above: Chronic tophaceous g out (Primary Dx); Stage 3 chronic kidney disease, unspecified whether stage 3a or 3b CKD (HCC); Encounter for long-term (current) use of medications; Other secondary osteoarthritis of multiple sites Start: 12-30-2023 End: 12-30-2023 ambulatory DELMY BOYLE Facility:[facility] Start: 12-30-2023 End: 12-30-2023 Clinisync Result Encounter Generic External Data Provider [facility] Unsolicited Start: 12-30-2023 End: 12-30-2023 Clinisync Result Encounter Generic External Data Provider [facility] Unsolicited Start: 12-10-2023 End: 12-15-2023 Refill Marina MARINELLI Work Phone: [facility] Comment on above: 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 rheumatoid factor ([facility]) Start: 12-07-2023 End: 12-07-2023 Refill Leydi Aceves MD Work Phone: [facility] Comment on above: Anxiety Start: 11-11-2023 End: 11-12-2023 Refill Leydi Aceves MD Work Phone: [facility] Comment on above: 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 rheumatoid factor ([facility]) Start: 11-08-2023 End: 11-09-2023 Refill Leydi Aceves MD Work Phone: [facility] Comment on above: Anxiety Start: 10-11-2023 End: 10-11-2023 ambulatory LEYDI ACEVES Not Available Start: 08-22-2023 End: 08-22-2023 ambulatory MD Leydi Aceves Work Phone: [facility] Work Phone: Start: 08-22-2023 End: 08-22-2023 Patient encounter procedure MD Leydi Aceves Work Phone: [facility] [place] Work Phone: Start: 08-16-2023 Refill Delmy newton MD Work Phone: Rheumatology Comment on above: Refill Request Start: 08-03-2023 Registered Recurring MD Leydi Aceves Work Phone: [facility] Start: 08-03-2023 ambulatory Nicola Castellon acility:[facility] Start: 07-06-2023 ambulatory Delmy newton MD Work Phone: Rheumatology Start: 07-06-2023 Patient encounter procedure Delmy Boyle MD Work Phone: Rheumatology Comment on above: Flare up Start: 07-05-2023 Refill Delmy newton MD Work Phone: Rheumatology Comment on above: Refill Request Start: 06-24-2023 End: 06-24-2023 ambulatory DELMY BOYLE Facility:[facility] Start: 06-24-2023 End: 06-24-2023 Patient encounter procedure Delmy Boyle MD Work Phone: Rheumatology Comment on above: Chronic tophaceous g out (Primary Dx); Encounter for long-term (current) use of medications; Stage 3 chronic kidney disease, unspecified whether stage 3a or 3b CKD (HCC); Idiopathic chronic gout of multiple sites with tophus Start: 06-21-2023 End: 06-21-2023 ambulatory DELMY BOYLE Facility:[facility] Start: 06-10-2023 End: 06-10-2023 ambulatory RUGEN M KETAN Not Available Start: 05-18-2023 End: 05-18-2023 ambulatory RUGEN M KETAN Not Available Start: 05-09-2023 End: 05-12-2023 ambulatory Nicola Leyva Facility:[facility] Start: 05-03-2023 End: 05-03-2023 ambulatory RUGEN M KETAN Not Available Start: 04-05-2023 Refill Leydi Mansfield Work Phone: [facility] Start: 03-08-2023 End: 03-08-2023 ambulatory DELMY BOYLE Facility:[facility] Start: 03-04-2023 End: 03-04-2023 ambulatory DELMY BOYLE Facility:[facility] Start: 02-24-2023 End: 02-24-2023 Emergency department patient visit Ladi Huber Facility[place] Start: 02-19-2023 End: 02-20-2023 amb[facility] Start: 11-13-2022 ambulatory Delmy newton MD Work Phone: Rheumatology Comment on above: Prednisone Start: 11-13-2022 E-mail encounter ranulfo m caregiver Delmy Boyle MD Work Phone: [facility] Start: 11-13-2022 Telephone encounter Delmy luna MD Work Phone: [facility] [place] Comment on above: Patient Request Start: 07-24-2022 End: 07-24-2022 ambulatory MATIAS DIAB . Facility:[facility] Start: 06-28-2022 End: 06-28-2022 ambulatory [...] 01-01-2022 End: 01-01-2022 Patient encounter procedure Delmy oByle MD Work Phone: Rheumatology Comment on above: [...] of inpatient MD Leydi Aceves Work Phone: [facility] [place] [address] Start: 12-06-2021 End: 12-07-[address] LEYDI ACEVES Facility:[facility] Start: 10-19-2021 End: 10-19-2021 ambulatory ZHAO MAURER . Facility:[facility] Start: 09-27-2021 End: 09-27-2021 Emergency department patient visit MD Leydi Aceves Work Phone: [facility] Start: 09-27-2021 End: 09-27-2021 ambulatory ZHAO MAURER . 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 Rheumatology Comment on above: Return in about 9 months (around ). Start: 09-25-2024 End: 12-25-2024 Alanine aminotransferase [Enzymatic activity/volume] in Serum or Plasma ALANINE AMINOTRANSFERASE / SGPT Lab Routine Chronic tophaceous gout Encounter for long-term (current) use of medications Expected: 09/25/2024 (Approximate), Expires: 12/25/2024 [facility] Comment on above: Expected: 09/25/2024 (Approximate), Expi res: 12/25/2024 Start: 09-25-2024 End: 12-25-2024 Albumin [Mass/volume] in Serum or Plasma ALBUMIN Lab Routine Chronic tophaceous gout Encounter for long-term (current) use of medications Expected: 09/25/2024 (Approximate), Expires: 12/25/2024 [facility] Comment on above: Expected: 09/25/2024 (Approximate), Expi res: 12/25/2024 Start: 09-25-2024 End: 12-25-2024 Aspartate aminotransferase [Enzymatic activity/volume] in Serum or Plasma ASPARTATE AMINOTRANSFERASE/SGOT Lab Routine Chronic tophaceous gout Encounter for long-term (current) use of medications Expected: 09/25/2024 (Approximate), Expires: 12/25/2024 [facility] Comment on above: Expected: 09/25/2024 (Approximate), Expi res: 12/25/2024 Start: 09-25-2024 End: 12-25-2024 C reactive protein [Mass/volume] in Serum or Plasma C-REACTIVE PROTEIN Lab Routine Chronic tophaceous gout Encounter for long-term (current) use of medications Expected: 09/25/2024 (Approximate), Expires: 12/25/2024 [facility] Comment on above: Expected: 09/25/2024 (Approximate), Expi res: 12/25/2024 Start: 09-25-2024 End: 12-25-2024 CBC W Auto Differential panel - Blood COMPLETE BLOOD COUNT AND DIFFERENTIAL Lab Routine Chronic tophaceous gout Encounter for long-term (current) use of medications Expected: 09/25/2024 (Approximate), Expires: 12/25/2024 [facility] Comment on above: Expected: 09/25/2024 (Approximate), Expi res: 12/25/2024 Start: 09-25-2024 End: 12-25-2024 CREATININE BLD CREATININE BLD Lab Routine Chronic tophaceous gout Encounter for long-term (current) use of medications Expected: 09/25/2024 (Approximate), Expires: 12/25/2024 [facility] Comment on above: Expected: 09/25/2024 (Approximate), Expi res: 12/25/2024 Start: 09-25-2024 End: 12-25-2024 Erythrocyte sedimentation rate SEDIMENTATION RATE, WESTERGREN Lab Routine Chronic tophaceous gout Encounter for long-term (current) use of medications Expected: 09/25/2024 (Approximate), Expires: 12/25/2024 [facility] Comment on above: Expected: 09/25/2024 (Approximate), Expi res: 12/25/2024 Start: 09-25-2024 End: 12-25-2024 Urate [Mass/volume] in Serum or Plasma URIC ACID Lab Routine Chronic tophaceous gout Encounter for long-term (current) use of medications Expected: 09/25/2024 (Approximate), Expires: 12/25/2024 [facility] Comment on above: Expected: 09/25/2024 (Approximate), Expi res: 12/25/2024 Start: 05-18-2024 End: 05-18-2024 Patient encounter procedure 05/18/2024 9:00 AM EDT Office Visit [facility] [address] [facility] [address] [place] [address] Marina Rees PA [address] [facility] [address] [place] [address] Arrived [facility] Comment on above: Arrived Start: 04-20-2024 End: 04-20-2025 SUPERFICIAL WOUND (HTRX) SUPERFICIAL WOUND (HTRX) Lab Routine Abscess of right index finger Expected: 04/20/2024 (Approximate), Expires: 04/20/2025 [facility] Work Phone: Comment on above: Expected: 04/20/2024 (Approximate), Expi res: 04/20/2025 Start: 04-20-2024 End: 04-20-2024 Patient encounter procedure 04/20/2024 10:00 AM EST Office Visit [facility] [address] [place] [address] Marina Rees PA [address] [place] [address] Arrived [facility] Comment on above: Arrived Start: 03-04-2024 Creatinine measurement Serum Creatinine [facility] Start: 01-21-2024 End: 01-21-2024 Patient encounter procedure 01/21/2024 9:00 AM EST Office Visit [facility] [address] [place] [address] Marina Rees PA [address] [place] [address] [facility] Start: 01-17-2024 End: 01-17-2024 Patient encounter procedure 01/17/2024 9:15 AM EST Office Visit Orthopaedics [address] [place] [address] [place] [address] [place] [address] 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] Orthopaedics Comment on above: Other secondary osteoarthritis of multip le sites [M15.3] Start: 01-11-2024 End: 01-11-2024 Patient encounter procedure 01/11/2024 11:00 AM EST Office Visit [facility] [address] [place] [address] Leydi Aceves MD [address] [place] [address] [facility] Start: 01-04-2024 End: 01-04-2024 Patient encounter procedure 01/04/2024 8:20 AM EST Office Visit Rheumatology [address] [place] [address] [place] [address] [place] [address] FU 6-7 MON WITH MD Rheumatology Comment on above: FU 6-7 MON WITH MD Start: 10-31-2023 Covid-19 Vaccine ( season) Covid-19 Vaccine () [facility] Start: 10-31-2023 Influenza vaccination [facility] Start: 09-24-2023 End: 09-24-2023 Patient encounter procedure 09/24/2023 8:00 AM EDT Office Visit Rheumatology [address] [place], [place] [id number] Kelly Martell APRN.[employer] ENGINEER [address] [place] [address] FU 3-4 MON WITH STEFANIA Rheumatology Comment on above: FU 3-4 MON WITH STEFANIA Start: 08-29-2023 Influenza vaccination Influenza Vaccine (#1) [facility] Comment on above: Postponed from 10/30/2022 (Other Patient Reasons) Start: 08-13-2023 Serum Creatinine Serum Creatinine [facility] Start: 03-01-2023 Behavioral Health Screening Behavioral Health Screening [facility] Start: 01-01-2023 BP CONTROLLED (<130/80) BP CONTROLLED (<130/80) [facility] Start: 10-30-2022 Covid-19 Vaccine ( season) Covid-19 Vaccine () [facility] Start: 10-30-2022 Influenza vaccination [facility] Start: 07-13-2022 End: 09-12-2022 Alanine aminotransferase [Enzymatic activity/volume] in Serum or Plasma ALT/SGPT Lab Routine Idiopathic chronic gout of multiple sites with [facility] Encounter for long-term (current) use of medications Expected: 07/13/2022 (Approximate), Expires: 09/12/2022 [facility] Work Phone: Comment on above: Expected: 07/13/2022 (Approximate), Expi res: 09/12/2022 Start: 07-13-2022 End: 09-12-2022 Albumin [Mass/volume] in Serum or Plasma ALBUMIN BLD Lab 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 Encounter for long-term (current) use of medications Expected: 07/13/2022 (Approximate), Expires: 09/12/2022 [facility] Work Phone: Comment on above: Expected: 07/13/2022 (Approximate), Expi res: 09/12/2022 Start: 07-13-2022 End: 09-12-2022 Aspartate aminotransferase [Enzymatic activity/volume] in Serum or Plasma AST/SGOT BLD Lab 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 Encounter for long-term (current) use of medications Expected: 07/13/2022 (Approximate), Expires: 09/12/2022 [facility] Work Phone: Comment on above: Expected: 07/13/2022 (Approximate), Expi res: 09/12/2022 Start: 07-13-2022 End: 09-12-2022 C reactive protein [Mass/volume] in Serum or Plasma C-REACTIVE PROTEIN (CRP) Lab 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 Encounter for long-term (current) use of medications Expected: 07/13/2022 (Approximate), Expires: 09/12/2022 [facility] Work Phone: Comment on above: Expected: 07/13/2022 (Approximate), Expi res: 09/12/2022 Start: 07-13-2022 End: 09-12-2022 CBC W Auto Differential panel - Blood CBC + DIFF Lab 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 Encounter for long-term (current) use of medications Expected: 07/13/2022 (Approximate), Expires: 09/12/2022 [facility] Work Phone: Comment on above: Expected: 07/13/2022 (Approximate), Expi res: 09/12/2022 Start: 07-13-2022 End: 09-12-2022 CREATININE BLD CREATININE BLD Lab 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 Encounter for long-term (current) use of medications Expected: 07/13/2022 (Approximate), Expires: 09/12/2022 [facility] Work Phone: Comment on above: Expected: 07/13/2022 (Approximate), Expi res: 09/12/2022 Start: 07-13-2022 End: 09-12-2022 Erythrocyte sedimentation rate SED RATE WESTERGREN Lab 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 Encounter for long-term (current) use of medications Expected: 07/13/2022 (Approximate), Expires: 09/12/2022 [facility] Work Phone: Comment on above: Expected: 07/13/2022 (Approximate), Expi res: 09/12/2022 Start: 07-13-2022 End: 09-12-2022 Urate [Mass/volume] in Serum or Plasma URIC ACID BLOOD Lab 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 Encounter for long-term (current) use of medications Expected: 07/13/2022 (Approximate), Expires: 09/12/2022 [facility] Work Phone: Comment on above: Expected: 07/13/2022 (Approximate), Expi res: 09/12/2022 Start: 04-23-2022 SERUM CREATININE SERUM CREATININE [facility] Start: 03-01-2022 DEPRESSION ASSESSMENT DEPRESSION ASSESSMENT [facility] Start: 12-10-2021 [facility] Start: 12-07-2021 Hospital admission [facility] Start: 12-07-2021 Referral to [employer] Teacher [facility] Start: 10-30-2021 Influenza vaccination [facility] Start: 08-19-2021 Adult depression screening assessment DEPRESSION SCREENING [facility] Start: 03-01-2021 DEPRESSION ASSESSMENT DEPRESSION ASSESSMENT [facility] Start: 2009 Hepatitis B Vaccine (1 of 3 - 19+ 3-dose series) Hepatitis B Vaccine (1 of 3 - 19+ 3-dose series) [facility] Start: 02-26-2008 ANNUAL PCP TEAM CHRONIC DISEASE VISIT ANNUAL PCP TEAM CHRONIC DISEASE VISIT [facility] Start: 02-26-2008 Anxiety Screening Anxiety Screening [facility] Start: 02-26-2008 BP CONTROLLED (<130/80) BP CONTROLLED (<130/80) [facility] Start: 02-26-2008 Depression Screening Depression Screening [facility] Start: 02-26-2008 HIV SCREENING HIV SCREENING [facility] Start: 02-26-2008 HIV screening HIV Screening [facility] Start: 1995 COVID-19 VACCINE (#1) COVID-19 VACCINE (#1) [facility] Start: 1990 COVID-19 VACCINE (#1) COVID-19 VACCINE (#1) [facility] Start: 1990 HEPATITIS B (1 of 3 - 3-dose series) HEPATITIS B (1 of 3 - 3-dose series) [facility] Start: 1990 Hepatitis B Vaccine (1 of 3 - 3-dose series) Hepatitis B Vaccine (1 of 3 - 3-dose series) [facility] End: 06-23-2024 Alanine aminotransferase [Enzymatic activity/volume] in Serum or Plasma ALANINE AMINOTRANSFERASE / SGPT Lab Routine Chronic tophaceous gout Encounter for long-term (current) use of medications Every 3 months for 5 Occurrences starting 06/24/2023 until 06/23/2024 [facility] Comment on above: Every 3 months for 5 Occurrences startin g 06/24/2023 until 06/23/2024 End: 06-23-2024 Albumin [Mass/volume] in Serum or Plasma ALBUMIN Lab Routine Chronic tophaceous gout Encounter for long-term (current) use of medications Every 3 months for 5 Occurrences starting 06/24/2023 until 06/23/2024 [facility] Comment on above: Every 3 months for 5 Occurrences startin g 06/24/2023 until 06/23/2024 End: 06-23-2024 Aspartate aminotransferase [Enzymatic activity/volume] in Serum or Plasma ASPARTATE AMINOTRANSFERASE/SGOT Lab Routine Chronic tophaceous gout Encounter for long-term (current) use of medications Every 3 months for 5 Occurrences starting 06/24/2023 until 06/23/2024 [facility] Work Phone: Comment on above: Every 3 months for 5 Occurrences startin g 06/24/2023 until 06/23/2024 End: 06-23-2024 C reactive protein [Mass/volume] in Serum or Plasma C-REACTIVE PROTEIN Lab Routine Chronic tophaceous gout Encounter for long-term (current) use of medications Every 3 months for 5 Occurrences starting 06/24/2023 until 06/23/2024 [facility] Comment on above: Every 3 months for 5 Occurrences startin g 06/24/2023 until 06/23/2024 End: 06-23-2024 CBC W Auto Differential panel - Blood COMPLETE BLOOD COUNT AND DIFFERENTIAL Lab Routine Chronic tophaceous gout Encounter for long-term (current) use of medications Every 3 months for 5 Occurrences starting 06/24/2023 until 06/23/2024 [facility] Comment on above: Every 3 months for 5 Occurrences startin g 06/24/2023 until 06/23/2024 End: 06-23-2024 CREATININE BLD CREATININE BLD Lab Routine Chronic tophaceous gout Encounter for long-term (current) use of medications Every 3 months for 5 Occurrences starting 06/24/2023 until 06/23/2024 [facility] Comment on above: Every 3 months for 5 Occurrences startin g 06/24/2023 until 06/23/2024 End: 06-23-2024 Erythrocyte sedimentation rate SEDIMENTATION RATE, WESTERGREN Lab Routine Chronic tophaceous gout Encounter for long-term (current) use of medications Every 3 months for 5 Occurrences starting 06/24/2023 until 06/23/2024 [facility] Comment on above: Every 3 months for 5 Occurrences startin g 06/24/2023 until 06/23/2024 Patient Education [facility] Work Phone: Patient referral [facility] Work Phone: End: 06-23-2024 Urate [Mass/volume] in Serum or Plasma URIC ACID Lab Routine Chronic tophaceous gout Encounter for long-term (current) use of medications Every 6 months for 3 Occurrences starting 06/24/2023 until 06/23/2024 [facility] Comment on above: Every 6 months for 3 Occurrences startin g 06/24/2023 until 06/23/2024 End: 02-02-2025 XR Foot - bilateral AP and Lateral and oblique XR FOOT GENERAL 3V AP/LAT/OBL BILATERAL Radiology Routine Chronic tophaceous gout Encounter for long-term (current) use of medications 1 Occurrences starting 01/04/2024 until 02/02/2025 [facility] Work Phone: Comment on above: 1 Occurrences starting 01/04/2024 until 02/02/2025 XR Foot - bilateral AP and Lateral and oblique XR FOOT GENERAL 3V AP/LAT/OBL BILATERAL Radiology Routine Chronic tophaceous gout Encounter for long-term (current) use of medications 01/04/2024 9:48 AM EST [facility] Immunizations Immunization Date Immunization Notes Care Provider Fa [facility] 10-13-2018 influenza virus vacc ine, unspecified formulation Delmy Boyle MD Work Phone: [facility] 10-13-2002 measles, mumps and rubella virus vaccine Leydi Aceves MD Work Phone: [facility] 10-20-1993 diphtheria, tetanus toxoids and acellular pertussis vaccine, unspecified formulation Leydi Aceves MD Work Phone: [facility] 10-20-1993 haemophilus influenz ae type b vaccine, conjugate unspecified formulation Leydi Aceves MD Work Phone: [facility] 10-20-1993 trivalent poliovirus vaccine, live, oral Leydi Aceves MD Work Phone: [facility] 07-26-1991 diphtheria, tetanus toxoids and pertussis vaccine Leydi Aceves MD Work Phone: [facility] 07-26-1991 haemophilus influenz ae type b vaccine, conjugate unspecified formulation Leydi Aceves MD Work Phone: [facility] 07-26-1991 measles, mumps and rubella virus vaccine Leydi Aceves MD Work Phone: [facility] 02-03-1991 diphtheria, tetanus toxoids and pertussis vaccine Leydi Aceves MD Work Phone: [facility] 02-03-1991 haemophilus influenz ae type b vaccine, conjugate unspecified formulation Leydi Aceves MD Work Phone: [facility] 02-03-1991 trivalent poliovirus vaccine, live, oral Leydi Aceves MD Work Phone: [facility] 1990 diphtheria, tetanus toxoids and pertussis vaccine Leydi Aceves MD Work Phone: [facility] 1990 haemophilus influenz ae type b vaccine, conjugate unspecified formulation Leydi Aceves MD Work Phone: [facility] 1990 trivalent poliovirus vaccine, live, oral Leydi Aceves MD Work Phone: [facility] Healthcare Payers Date Payer Category Payer Self-pay 2022 Private Health Insurance [facility] MEDICAID [id number] 2021 Medicaid [facility] MED[facility] AID [facility] MEDICAID [id number] 2021-Present [phone] [address] [place] [address] Medicaid [id number] 2021 Medicaid [id number] 2018 Unknown [id number] 1990 Unknown [id number] 2.16.840.1.896984.3.579.2. 173 1990 Unknown [id number] 2.16.840.1.021698.3.579.2. 593 1990 Unknown [id number] 2.16.840.1.876104.3.579.2. 593 1990 Unknown [id number] 2.16.840.1.736966.3.579.2. 593 1990 Unknown [id number] 2.16.840.1.272276.3.579.2. 593 1990 Unknown [id number] 2.16.840.1.696049.3.579.2. 593 1990 Unknown [id number] 2.16.840.1.560347.3.579.2. 593 1990 Unknown [id number] 2.16.840.1.246233.3.579.2. 593 1990 Unknown [id number] 2.16.840.1.359915.3.579.2. 593 1990 Unknown [id number] 2.16.840.1.561748.3.579.2. 593 1990 Unknown [id number] 2.16.840.1.818698.3.579.2. 593 1990 Unknown [id number] 2.16.840.1.542002.3.579.2. 727 1990 Unknown [id number] 2.16.840.1.109182.3.579.2. 1259 1990 Unknown [id number] 2.16.840.1.287553.3.579.2. 1259 1990 Unknown [id number] 2.16.840.1.799750.3.579.2. 1259 1990 Unknown [id number] 2.16.840.1.482004.3.579.2. 1259 1990 Unknown [id number] 2.16.840.1.878995.3.579.2. 1259 1990 Unknown [id number] 2.16.840.1.976918.3.579.2. 1259 1959 Medicaid [id number] 1959 Unknown [id number] Unknown [facility] [id number] Unknown [id number] 2.16.840.1.380076.3.579.2. 531 Unknown [id number] 2.16.840.1.359039.3.579.2. 531 Social History Date Type Detail Facility Start: 05-04-2017 End: 01-01-2022 Tobacco smoking status [facility] Never smoked tobacco [facility] Start: 05-04-2017 End: 01-11-2024 Tobacco use and exposure User of smokeless tobacco [facility] History of tobacco use Chews Tobacco [facility] Start: 1990 Sex Assigned At Male [facility] Start: 12-08-2021 Tobacco smoking status NMIS Smoker (finding) [facility] Start: 12-22-2021 End: 01-01-2022 Exposure to SARS-CoV-2 (event) Not sure [facility] Start: 08-14-2022 End: 10-10-2023 History of Social function [facility] Start: 08-14-2022 End: 10-10-2023 Tobacco use panel [facility] Adult Depression Screening Assessment 4 [facility] Start: 11-09-2019 Gender identity Identifies as male gender (finding) [facility] Start: 11-09-2019 Sexual orientation Heterosexual (finding) [facility] Start: 09-14-2022 Tobacco use and exposure Smokeless tobacco non-user [facility] Start: 02-16-2023 End: 04-20-2024 Alcohol intake Current drinker of alcohol (finding) [facility] Within the last year , have you been afraid of your partner or ex-partner? No [facility] Do you belong to any clubs or organizations such as oriental orthodox groups, unions, fraternal or athletic groups, or [...] Start: 02-26-2008 End: 01-11-2024 Tobacco smoking status NMIS Smokes tobacco daily [facility] Are you [...] Facility 12-10-2021 Functional status Patient at Baseline [facility] Work Phone: 12-07-2021 Functional status Disability Sta s Patient at Baseline [facility] Work Phone: Mental Status Date Assessment Result Facility 12-10-2021 Cognitive function Cognitive Sta s Patient at Baseline [facility] Work Phone: Clinical Notes 04-25-2017 to 05-11-2024 Telephone Encounter - ISIS Vera - 05/11/2024 12:58 PM EDTTelephone Encounter - ISIS Vera - 05/11/2024 12:58 PM EDTTelephone Encounter - Roseanna Elmore - 05/11/2024 11:41 AM EDT Note Date & Type Note Facility 05-11-2024 Telephone encounter Note OARRS reviewed, Rx sent into patient's pharmacy. [facility] 05-11-2024 Miscellaneous Notes OARRS reviewed, Rx sent into patient's pharmacy. Pt called asking for hydrocodone to be sent in I'm not seeing this on his med list documented in this encounter [facility] 05-11-2024 Telephone encounter Note Pt called asking for hydrocodone to be sent in I'm not seeing this on his med list [facility] 04-25-2024 Telephone encounter Note OARRS reviewed, Rx sent into patient's pharmacy. [facility] 04-25-2024 Miscellaneous Notes OARRS reviewed, Rx sent into patient's pharmacy. documented in this encounter [facility] 04-20-2024 History of Present illness Narrative Images from the original note were not included. HPI Med Refill Additional comments: Oxycodone for a few days Last edited by Cristal Ojeda LPN on 04/20/2024 10:02 AM. Subjective Patient ID: Nick Wray is a 34 y.o. male who presents for [facility] ER follow up. Flowsheet Row Patient Outreach from 04/18/[address] [facility] with Jayne Del Valle RN Hospital Information ED, Hospital or Snf Facility Discharge? ED Patient has been contacted within 1 week of being seen in the ED Yes Diagnosis Rheumatoid Arthritis Flare up, single digit Discharge Date 04/15/24 Discharged To: Home Setting Discharge Hospital [facility] Engagement Admission Date 04/15/24 Medications Discharge medications reviewed and reconciled from hospital? Yes Is the patient having any side effects they believe may be caused by any medication additions or changes? No Does the patient have all medications ordered at discharge? Yes Nursing Interventions Nurse provided patient education Prescription Comments RX: percocet, prenisone Is the patient taking all medications as directed (includes completed medication regime)? Yes Appointments Does the patient have a primary care provider? Yes [follow up with Marina MARINELLI on 04/20/24 at 10am] Nursing Interventions Verified appointment date/time/provider Self Management Does patient have home health? no Patient Teaching What is the patient's perception of their health status since discharge? Same [reports he had swelling, pain, inflammation of single digit and pt states the ER physician did not open area as they felt it was not an infection. Pt states he did open area on wednesday and area continues to drain, while, milky, thick drainage.] Wrap Up Wrap Up Additional Comments reports he had swelling, pain, inflammation of single digit and pt states the ER physician did not open area as they felt it was not an infection. Pt states he did open area on wednesday and area continues to drain, while, milky, thick drainage. pt would like area re-checked to make sure nothing furhter needs done and no infection. Pt did have labs and XR done in ER. ER note in pt's chart. States the index finger right hand is still draining, he feels it is not really improving. He is putting a triple ATB cream on it. It is very swollen. He has finished the Oxycodone that was prescribed in the ER. Current Outpatient Medications on File Prior to Visit Medication Sig Dispense Refill allopurinol (Zyloprim) 100 MG tablet Take 100 [...] mouth every other day 100 tablet 1 diclofenac sodium (Voltaren Arthritis Pain) 1 % gel Apply 2 g topically in the morning and 2 g in the evening and 2 g before bedtime. 100 g 2 gabapentin (Neurontin) 300 MG capsule TAKE 1 CAPSULE BY MOUTH EVERY MORNING, EVERY EVENING, AND AT BEDTIME 90 capsule 4 predniSONE (Deltasone) 10 MG tablet Take 4 tablets (40 mg) by mouth Daily for 4 days, THEN 3 tablets (30 mg) Daily for 4 days, THEN 2 tablets (20 mg) Daily for 4 days, THEN 1 tablet (10 mg) Daily for 4 days. 40 tablet 0 traMADol (Ultram) 50 MG tablet Take 1 tablet (50 mg) by mouth every 12 (twelve) hours if needed for moderate pain 60 tablet 0 [DISCONTINUED] lidocaine (Lidoderm) 5 % patch Place 1 patch on the skin in the morning. [DISCONTINUED] oxyCODONE-acetaminophen (Percocet) 5-325 MG tablet Take 1 tablet by mouth every 4 (four) hours if needed for severe pain or moderate pain [DISCONTINUED] predniSONE (Deltasone) 10 MG tablet Take 4 tablets (40 mg) by mouth Daily for 4 days, THEN 3 tablets (30 mg) Daily for 4 days, THEN 2 tablets (20 mg) Daily for 4 days, THEN 1 tablet (10 mg) Daily for 4 days. 40 tablet 0 [DISCONTINUED] QUEtiapine (SEROquel) 100 MG tablet Take 100 mg by mouth at bedtime [DISCONTINUED] traZODone (Desyrel) 50 MG tablet TAKE 1 - 2 TABLETS BY MOUTH EVERYDAY AT BEDTIME NEEDED FOR SLEEP No current facility-administered medications on file prior to visit. I have reviewed and reconciled the history and medication list with the patient today. No Known Allergies Social History Tobacco Use Smoking status: Every Day Current packs/day: 1.50 Average packs/day: 1.5 packs/day for 16.1 years (24.2 ttl pk-yrs) Types: Cigarettes Start date: 02/26/2008 [...] [place] SHOULDER ARTHROSCOPY Right WISDOM TOOTH EXTRACTION 2008 Visit Vitals BP (!) 158/116 Pulse 87 Resp 16 Ht 6' 2 Wt 233 lb 9.6 oz SpO2 98% BMI 29.99 kg/m Smoking Status Every Day BSA 2.35 m Review of Systems Constitutional: Negative for chills, fatigue and fever. Respiratory: Positive for cough (Intermittently productive). Negative for shortness of breath and wheezing. Cardiovascular: Negative for chest pain, palpitations and leg swelling. Gastrointestinal: Negative for abdominal pain, constipation, diarrhea, nausea and vomiting. Musculoskeletal: Positive for arthralgias. Skin: Positive for wound. Negative for rash. Objective Physical Exam Constitutional: General: He is not in acute distress. Appearance: Normal appearance. HENT: Head: Normocephalic and atraumatic. Eyes: General: No scleral icterus. Cardiovascular: Rate and Rhythm: Normal rate and regular rhythm. Heart sounds: No murmur heard. Pulmonary: Effort: Pulmonary effort is normal. No respiratory distress. Breath sounds: No wheezing, rhonchi or rales. Comments: Mildly harsh in lung bases. Musculoskeletal: Right hand: Swelling present. Decreased range of motion. Normal pulse. Skin: General: Skin is warm and dry. Findings: Erythema and wound present. Comments: Right index finger DIP joint markedly erythematous, swollen, tender, with thick white/yellow discharge from palmar aspect of joint Neurological: General: No focal deficit present. Mental Status: He is alert and oriented to person, place, and time. Psychiatric: Mood and Affect: Mood normal. Behavior: Behavior normal. Assessment/Plan Diagnoses and all orders for this visit: Essential hypertension (CMS/HCC) BP similar on recheck. Encouraged pt to have his BP checked at work over the next few days to make sure the readings are improved. He is in significant discomfort today. If his BP is not improved, he is to contact the office. Abscess of right index finger - amoxicillin-clavulanate (Augmentin) 875-125 MG tablet; Take 1 tablet (875 mg) by mouth in the morning and 1 tablet (875 mg) in the evening. Take with meals. Do all this for 10 days. - HYDROcodone-acetaminophen ([place]) 5-325 MG tablet; Take 1 tablet by mouth every 6 (six) hours if needed for severe pain for up to 5 days - SUPERFICIAL WOUND (HTRX); Future Start above as prescribed. Encouraged probiotic while on antibiotic. Advised will send out the purulent drainage for evaluation. Will notify pt of the results once received. Encouraged warm water with epsom salt soaks a few times a day. Gently expel drainage as able to do so. Keep covered while draining. If any fever/chills, N/V, or infection spreads, he is to return to the ER. Otherwise follow up as needed for this concern. The patient was seen today in follow up of recent hospital ER visit. All available hospital records/labs/diagnostics were reviewed and discussed with the patient. ER discharge meds were reviewed. Any changes to plan are as noted. Follow up in about 3 months (around 07/18/2024) for Hypertension, Medication Follow Up. documented in this encounter [facility] 02-02-2024 Telephone encounter Note Pt was given a long taper just recently. If he is still having significant issues he should contact his Rheumatology for further instructions for managing the flare up. [facility] 02-02-2024 Miscellaneous Notes Pt was given a long taper just recently. If he is still having significant issues he should contact his Rheumatology for further instructions for managing the flare up. Can he be given the steroid ?? documented in this encounter [facility] 02-02-2024 Telephone encounter Note Can he be given the steroid ?? [facility] 01-21-2024 History of Present illness Narrative Images [...] every two weeks. States a doctor at [facility] [employer], where he works, drained his finger [...] [place]ffman SHOULDER ARTHROSCOPY Right WISDOM TOOTH EXTRACTION 2008 Visit Vitals BP (!) 158/101 Pulse 87 [...] multiple sites with positive rheumatoid factor (CMS/HCC) - diclofenac sodium (Voltaren Arthritis Pain) 1 [...] have finger drained if worsens. Essential hypertension (CMS/HCC) Patient's BP in Rheumatology office on 01/04/24 [...] Medication Follow Up. documented in this encounter [facility] 01-18-2024 Telephone encounter Note oxyCODONE-acetaminophen (Percocet) 5-325 MG tablet [facility] 01-18-2024 Miscellaneous Notes oxyCODONE-acetaminophen (Percocet) 5-325 MG tablet [facility] documented in this encounter [facility] 01-07-2024 Telephone encounter Note OARRS reviewed, Rx sent into patient's pharmacy. [facility] 01-07-2024 Miscellaneous Notes OARRS reviewed, Rx sent into patient's pharmacy. 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 It Recruiter: PSCB Transcribe Date/Time: Jan 04 2024 10:13A Dictated by : UMA ROGERS MD This examination was interpreted and the report reviewed and electronically signed by: CHELSEA REEVES MD on Jan 04 2024 3:12PM EST [facility] 01-04-2024 Telephone encounter Note FYI- Insurance wants him to try generic Lidocaine patches for 30 days first. Please see below outcome. [facility] 01-04-2024 Miscellaneous Notes FYI- Insurance wants him to try generic Lidocaine patches for 30 days first. Please see below outcome. Nick Wray ([place]oz: [id number]) [facility] Rx #: [id number] Need Help? Call us at Outcome Denied today by myEDmatch Medicaid 2017 Coverage is provided when the [...] of therapy with generic Lidocaine patch. The [facility] Policy for Medical Necessity as posted on the [facility] website and [facility] Preferred Drug List criteria were reviewed and per [place] Administrative Code Rule 5160-1-01 (C) and (B), [...] through the community. Drug ZTlido 1.8% patches [facility] cloud logo Form [place] Medicaid [employer] Electronic PA Form (2016 AKPDP) Original Claim Info 75 documented in this encounter [facility] 01-04-2024 Telephone encounter Note Nick Wray ([place]oz: [id number]) [facility] Rx #: [id number] Need Help? Call us at Outcome Denied [...] of therapy with generic Lidocaine patch. The [employer] Policy for Medical Necessity as posted on the [facility] website and [facility] Preferred Drug List criteria were reviewed and per [place] Administrative Code Rule 5160-1-01 (C) and (B), [...] through the community. Drug ZTlido 1.8% patches [facility] [employer] logo Form [place] Medicaid [employer] Electronic PA Form (2016 [facility]) Original Claim Info 75 [facility] 01-04-2024 History of Present illness Narrative Radiology [...] PATIENT PRESENTS WITH AN IMPLANTABLE OR ATTACHED DOZER OPERATOR: No RADIOLOGY DEPARTMENT: General X-ray: Exam(s) Completed: Lower Extremity X-Ray(s): Knee, AP / Lat / Tunne / Merchant Bilateral and Wt. Bearing and Feet, Bilateral and Wt. Bearing PERIPHERAL IV DATA: Not applicable SIGNED BY: RT Chapito(R) January 04, 2024 9:41 AM documented in this encounter [facility] 01-04-2024 Note HNO ID: [id number] Author: ROSALINA ROMAN RT(R) Service: Radiology Author Type: Senior Compensation Consultant Type: Progress Notes Filed: 01/04/2024 09:42 Note [...] PATIENT PRESENTS WITH AN IMPLANTABLE OR ATTACHED DOZER OPERATOR: No RADIOLOGY DEPARTMENT: General X-ray: Exam(s) Completed: Lower Extremity X-Ray(s): Knee, AP / Lat / Tunne / Merchant Bilateral and Wt. Bearing and Feet, Bilateral and Wt. Bearing PERIPHERAL IV DATA: Not applicable SIGNED BY: RT Chapito(R) January 04, 2024 9:41 AM [facility] 01-04-2024 Instructions Delmy Boyle MD [...] at your visit. documented in this encounter [facility] 01-04-2024 History of Present illness Narrative Images [...] arthritic flares once every 4 months. Saw boot lace cutter machine Dr. Jaime in [place] who did diagnostic knee aspiration which according to patient was positive for uric acid crystals. Treated with steroids and continued allopurinol. He has not seen Dr. Jaime since 2014. In 2014, he was hospitalized in [place] for acute polyarthritis. Saw boot lace cutter machine while in hospital who told him that he possibly had RA. Discharged on steroids. His PCP switched him from allopurinol to Uloric Jan 2017. He also takes colchicine prn. No reduction in frequency or severity of his joint flares with Uloric. In 2016, he has been hospitalized 7-8 times for acute joint flares. Each time he is treated with steroids. Hospitalized at [facility] Apr 2017 for acute flare [...] shoulder surgery by Dr. Tc Coffey at [facility]. No post op complications. Was in [...] of gout 06/2023. He was seen in [facility] for gout flare. 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 Author [...] arthritic flares once every 4 months. Saw boot lace cutter machine Dr. Jaime in [place] who did diagnostic knee aspiration which according to patient was positive for uric acid crystals. Treated with steroids and continued allopurinol. He has not seen Dr. Jaime since 2014. In 2014, he was hospitalized in [place] for acute polyarthritis. Saw boot lace cutter machine while in hospital who told him that he possibly had RA. Discharged on steroids. His PCP switched him from allopurinol to Uloric Jan 2017. He also takes colchicine prn. No reduction in frequency or severity of his joint flares with Uloric. In 2017, he has been hospitalized 7-8 times for acute joint flares. Each time he is treated with steroids. Hospitalized at [facility] Apr 2017 for acute flare [...] shoulder surgery by Dr. Tc Coffey at [facility]. No post op complications. Was in [...] of gout 06/2023. He was seen in [facility] for gout flare. Given steroid injection and [...] Numbness Negative for: (more content not included)... [facility] 01-04-2024 Evaluation note Diagnosis Chronic tophaceous gout- [...] of other medications documented in this encounter [facility] Telephone encounter Note* Telephone Encounter - Anayeli Mosquera - 12/15/2023 1:39 PM EDT [facility]uled [id number] M[facility] Notes* Telephone Encounter - Anayeli Mosquera [...] routine medication follow up. documented in this encounterUniversity [id number] Telephone encounter Note* Telephone Encounter - Anayeli Mosquera - 12/10/2023 11:18 AM EDT Spoke with pt he'll call back this week to schedule [id number] Telephone encounter Note* Telephone Encounter - ISIS Vera - 12/10/2023 11:11 AM EDT OARRS reviewed, Rx sent into patient's pharmacy. Please help pt get set up for an appt with Dr. Aceves in December for routine medication follow up. [id number] Telephone encounter Note* Telephone Encounter - ISIS Vera - 11/12/2023 7:47 AM EDT OARRS reviewed, Rx sent into patient's pharmacy. [id number] Miscellaneous Notes* Telephone Encounter - ISIS Vera - 11/12/2023 7:47 AM EDT OARRS reviewed, Rx sent into patient's pharmacy. * Telephone Encounter - Anayeli Mosquera - 11/11/2023 2:30 PM EDT Refill traMADol (Ultram) 50 MG tablet [facility] documented in this encounterUniversity [id number] Telephone encounter Note* Telephone Encounter - Anayeli Mosquera - 11/11/2023 2:30 PM EDT Refill traMADol (Ultram) [facility] MG tablet [id number] Telephone encounter Note* Telephone Encounter - Camilla Holt LPN - 08/18/2023 8:50 AM EDT Mychart message sent to patient informing him he will have to follow up with Dr. Aceves for tramadol or oxycodone. per provider [facility]2024 Miscellaneous Notes* Telephone Encounter - Camilla Holt [...] 08/05/2023 encounter. Please advise. [facility] Telephone encounter Note * Telephone Encounter - [...] can be forwarded to his pharmacy. Thx [facility]-17[facility]2024 Telephone encounter Note* Telephone Encounter - Caren Vogt LPN - 08/16/2023 1:04 PM EDT Patient requesting Tramadol refill due to flare. Updated Care Everywhere. Please see 08/05/2023 encounter. Please advise. [facility]-09-2024 Telephone encounter Note* Telephone Encounter - Delmy Boyle MD - 07/08/2023 12:45 PM EDT Duplicate request - see other encounter. [facility] Miscellaneous Notes* Telephone Encounter - Delmy Boyle MD - 07/08/2023 12:45 PM EDT Duplicate request - see other encounter. documented in this encounterMem[facility]24 Telephone encounter Note * Telephone Encounter - Delmy Boyle MD - 07/08/2023 12:44 PM EDT Duplicate request - see other encounter. [facility]2024 Miscellaneous Notes* Telephone Encounter - Delmy Boyle MD - 07/08/2023 12:44 PM EDT Duplicate request - see other encounter. documented in this encounterMemorial Health System05-08-2024 Telephone encounter Note * Telephone Encounter - [...] pharmacy and notify patient. Delmy Boyle MD [facility]05-08-2024 Miscellaneous Notes* Telephone Encounter - Delmy Boyle [...] for appointment if needed. documented in this encounterMemorial Health System05-08-2024 Telephone encounter Note * Telephone Encounter - [...] to doctor. Routed message to Dr. Boyle [facility]-08[facility]24 Telephone encounter Note* Telephone Encounter - Haylee Mariee - 07/07/2023 10:39 AM EDT Patient called to check on refill status. Stated he has upcoming appointments. Also had a flare up this past weekend. Please call patient to advise. [facility]05-06-2024 Telephone encounter Note* Telephone Encounter - Caren Vogt LPN - 07/05/2023 2:07 PM EDT One time order. Patient needs to call office for appointment if needed. [facility]04[facility] History of Present illness Narrative* Delmy Boyle [...] arthritic flares once every 4 months. Saw boot lace cutter machine Dr. Jaime in [place] who did diagnostic knee aspiration which according to patient was positive for uric acid crystals. Treated with steroids and continued allopurinol. He has not seen Dr. Jaiem since 2014. In 2014, he was hospitalized in [place] for acute polyarthritis. Saw boot lace cutter machine while in hospital who told him that he possibly had RA. Discharged on steroids. His PCP switched him from allopurinol to Uloric Jan 2017. He also takes colchicine prn. No reduction in frequency or severity of his joint flares with Uloric. In 2017, he has been hospitalized 7-8 times for acute joint flares. Each timehe is treated with steroids. Hospitalized at [facility] Apr 2017 for acute flare [...] shoulder surgery by Dr. Tc Coffey at [facility]. No post op complications. 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 Author [...] arthritic flares once every 4 months. Saw boot lace cutter machine Dr. Jaime in [place] who did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 Reactor Operator Relationship Specialty Start Date End Date Leydi Aceves MD [address] [place] [address] PCP - General Family Medicine 07/29/22 Leydi Aceves MD [address] [place] [address] PCP - [facility] 05/30/22Wednesday, MILES MarquezN [address] [place] [address] Licensed Practical Nurse Family Medicine 06/04/23 Epitaxial Reactor Operator Relationship Specialty Start Date End Date Leydi Aceves MD PCP - General Family Medicine 01/07/15 Epitaxial Reactor Operator Relationship Specialty Start Date End Date Leydi Aceves MD PCP - General Family Medicine 01/07/15 Epitaxial Reactor Operator Relationship Specialty Start Date End Date Leydi Aceves MD PCP - General Family Medicine 01/07/15 Epitaxial Reactor Operator Relationship Specialty Start Date End Date Leydi Aceves MD [address] [place] [address] PCP - General Family Medicine 07/29/22 Leydi Aceves MD [address] [place] [address] PCP - [facility] 05/30/22Wednesday, BREE Marquez [address] [place] [address] Licensed Practical Nurse Family Medicine 06/04/23 Epitaxial Reactor Operator Relationship Specialty Start Date End Date Leydi Aceves MD [address] [place] [address] PCP - General Family Medicine 07/29/22 Leydi Aceves MD [address] [place] [address] PCP - [facility] 05/30/22Wednesday, Alma, TERRITORY ACCOUNT MANAGER [address] [place] [address] Licensed Practical Nurse Family Medicine 06/04/23 Epitaxial Reactor Operator Relationship Specialty Start Date End Date Leydi Aceves MD [address] [place] [address] PCP - General Family Medicine 07/29/22 Leydi Aceves MD [address] [place] [address] PCP [facility] 05/30/22Wednesday, Alma, TERRITORY ACCOUNT MANAGER [address] [place] [address] Licensed Practical Nurse Family Medicine 06/04/23 Epitaxial Reactor Operator Relationship Specialty Start Date End Date Leydi Aceves MD [address] [place] [address] PCP - General Family Medicine 07/29/22 Leydi Aceves MD [address] [place] [address] PCP [facility] 05/30/22Wednesday, Alma, TERRITORY ACCOUNT MANAGER [address] [place] [address] Licensed Practical Nurse Family Medicine 06/04/23 Epitaxial Reactor Operator Relationship Specialty Start Date End Date Leydi Aceves MD [address] [place] [address] PCP - General Family Medicine 07/29/22 Leydi Aceves MD [address] [place] [address] PCP [facility] 05/30/22Wednesday, Alma, TERRITORY ACCOUNT MANAGER [address] [place] [address] Licensed Practical Nurse Family Medicine 06/04/23 Epitaxial Reactor Operator Relationship Specialty Start Date End Date Leydi Aceves MD [address] [place] [address] PCP - General Family [facility] 07/29/22 Leydi Aceves MD [address] [place] [address] PCP [facility] 05/30/22Wednesday, Alma, TERRITORY ACCOUNT MANAGER [address] [place] [address] Licensed Practical Nurse Family Medicine 06/04/23 Epitaxial Reactor Operator Relationship Specialty Start Date End Date Leydi Aceves MD [address] [place] [address] PCP - General Family Medicine 07/29/22 Leydi Aceves MD [address] [place] [address] PCP [facility] 05/30/22Wednesday, Alma, TERRITORY ACCOUNT MANAGER [address] [place] [address] Licensed Practical Nurse Family Medicine 06/04/23 Epitaxial Reactor Operator Relationship Specialty Start Date End Date Leydi Aceves MD [address] [place] [address] PCP - General Family Medicine 07/29/22 Leydi Aceves MD [address] [place] [address] PCP - [facility] 05/30/22 Jayne Del Valle, RN Licensed Practical Nurse Family Medicine 04/07/24 Epitaxial Reactor Operator Relationship Specialty Start Date End Date Leydi Aceves MD [address] [place] [address] PCP - [facility] 07/29/22 Leydi Aceves MD [address] [place] [address] PCP [facility] 05/30/22 Jayne Del Valle, DELMIS Licensed Practical Nurse Family Medicine 04/07/24 Epitaxial Reactor Operator Relationship Specialty Start Date End Date Leydi Aceves MD [address] [place] [address] PCP - General Family Medicine 07/29/22 Leydi Aceves MD [address] [place] [address] PCP [facility] 05/30/22 Jayne Del Valle, DELMIS Licensed Practical Nurse Family Medicine 04/07/24 Epitaxial Reactor Operator Relationship Specialty Start Date End Date Leydi Aceves MD [address] [place] [address] PCP - General Family [facility] 07/29/22 Leydi Aceves MD [address] [place] [address] PCP - [facility] 05/30/22 Jayne Del Valle, RN Licensed Practical Nurse Family Medicine 04/07/24 Goals (unrecognized section and content) Goals may [...] RMP Specialty Diagnoses / Procedures Referred By Destiny t Referred To Contact XR IMAGING Diagnoses 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 Procedures XR KNEE GENERAL 4V AP BOTH/PA BOTH/LAT/MERC BILATERAL RADIOLOGIC EXAM KNEE COMPLETE 4/[place] [address] [place] [address] [place] [id number] Referral ID Status Reason Start Date Expiration Date V isits Requested Visits Authorized [id number] Closed Auto-Generate d Referral 01/04/2024 02/02/2025 1 1 Reason Onset Date Comments Med Refill 01/07/2024 Reason Comments ER Follow-up RA flare up Med Refill Would like a refill of Gabapentin and Tramadol Reason Onset Date Comments Med Refill 01/25/2024 Reason Onset Date Comments Med Refill 02/02/2024 Reason Onset Date Comments Med Refill 11/11/2023 Reason Onset Date Comments Med Refill 11/08/2023 Reason Comments Med Refill Oxycodone for a few days Reason Onset Date Comments Med Refill 04/25/2024 Reason Onset Date Comments Med Refill 05/02/2024 Reason Onset Date Comments Med Refill 05/10/2024 FOR RECORDS PERTAINING TO PATIENTS WHO ARE [...] BE BASED ON THE PRIMARY CLINICAL RECORDS. [facility] [employer] [facility]. provides no warranty or guarantee of the accuracy or completeness of information in this document.
[2024-05-18 10:10] LABS: Basophils Percent Auto 0.2 % (0.2-2.0); Eosinophils Percent Auto 0.5 % (0.9-7.0); Hematocrit 40.4 % (42.0-54.0); Hemoglobin 13.6 g/dL (14.0-18.0); Immature Granulocytes Abs Auto 0.02 10^3/uL (0.00-0.03); Immature Granulocytes Pct Auto 0.2 % (0.0-0.5); Lymphocytes Absolute Auto 3.1 10^3/uL (1.2-3.8); Lymphocytes Percent Auto 37.1 % (20.5-60.0); Mean Corpuscular HGB Conc 33.7 g/dL (29.9-35.2); Mean Corpuscular Hemoglobin 29.4 pg (25.9-34.0); Mean Corpuscular Volume 87.4 fL (80.0-94.0); Mean Platelet Volume 10.5 fL (9.5-13.5); Monocytes Absolute Auto 0.8 10^3/uL (0.3-0.8); Monocytes Percent Auto 9.6 % (1.7-12.0); Neutrophils Absolute Auto 4.4 10^3/uL (1.4-6.5); Neutrophils Percent Auto 52.4 % (43.0-75.0); Platelet Count 329 10^3/uL (150-450); Red Blood Count 4.62 10^6/uL (4.70-6.10); White Blood Count 8.4 10^3/uL (4.0-11.0)
[2024-05-18 10:41] LABS: C Reactive Protein <0.50 mg/dL (<=0.50); Uric Acid 9.2 mg/dL (3.5-7.2)
[2024-05-18 11:06] LABS: Erythrocyte Sedimentation Rate 31 mm/hr (<=15)
== END 2024-05-18 09:29 | disposition home or self-care (01) ==
PROVIDERS: PCP Family Medicine; Visit Provider Physician Assistant
DX: D64.9 Anemia, unspecified (principal); M1A.09X1 Idiopathic chronic gout, multiple sites, with tophus (tophi); M05.79 Rheumatoid arthritis with rheumatoid factor of multiple sites without organ or systems involvement
CPT/HCPCS: 36415; 84550; 85025; 85652; 86140

== ENCOUNTER 2024-06-23 19:21 | Emergency (ER) | payer OTHER, SELFPAY ==
[2024-06-23 19:26] VITALS: BP 162/98; PULSE 98; TEMP 37.2; O2SAT 98; BMI 28.2
--- NOTE | 2024-06-23 19:44 | ED_ITS ---
HPI - Extremity Problem General Chief complaint: Extremity Problem, Nontraumatic Stated complaint: LEFT KNEE RIGHT ANKLE PAIN Time Seen by Provider: 06/23/24 19:37 Source: patient Mode of arrival: walk-in History of Present Illness HPI Narrative: cc - pain in left knee and right foot Pt with long hx of gout and polyarthralgia presents with pain in the left knee and the right foot that began yesterday and worsened today after work. 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 He told me that he frequently gets gout flareups and usually does well with steroids. Related Data Home Medications ?Medication ?Instructions ?Recorded ?Confirmed amlodipine 10 mg tablet 10 mg PO QDAY 08/31/22 04/15/24 clonidine HCl 0.1 mg tablet 0.1 mg PO BID 08/31/22 04/15/24 colchicine 0.6 mg tablet 0.6 mg PO .every other 08/31/22 04/15/24 gabapentin 300 mg capsule 300 mg PO TID 02/15/23 04/15/24 (Neurontin) allopurinol 300 mg tablet 800 mg PO .evening 06/03/23 04/15/24 prednisone 10 mg tablet 10 mg PO DAILY 04/15/24 04/15/24 Previous Rx's ?Medication ?Instructions ?Recorded oxycodone-acetaminophen 5 mg-325 1 tab PO Q6H PRN pain 5 days #20 04/15/24 mg tablet (Percocet) tabs prednisone 10 mg tablet See Rx Instructions .Route 04/15/24 .COMPLEX #30 tabs methylprednisolone 4 mg tablets in 4 mg PO DAILY #21 ea 06/23/24 a dose pack (Medrol (Jamal)) Allergies Allergy/AdvReac Type Severity Reaction Status Date / Time No Known Drug Allergies Allergy Verified 02/04/24 18:20 [facility], [facility] PFS Medical History Acute hypernatremia ?E87.0 - Hyperosmolality and hypernatremia (ICD-10) Altered mental status ?R41.82 - Altered mental status, unspecified (ICD-10) Sepsis ?A41.9 - Sepsis, unspecified organism (ICD-10) Acute kidney injury ?N17.9 - Acute kidney failure, unspecified (ICD-10) MONO (generalized anxiety disorder) ?F41.1 - Generalized anxiety disorder (ICD-10) Rheumatoid arthritis ?M06.9 - Rheumatoid arthritis, unspecified (ICD-10) Benign essential hypertension ?I10 - Essential (primary) hypertension (ICD-10) Gouty arthritis ?M10.9 - Gout, unspecified (ICD-10) Acute postoperative pain of knee ?G89.18 - Other acute postprocedural pain (ICD-10) ?M25.569 - Pain in unspecified knee (ICD-10) Visit for wound check ?Z51.89 - Encounter for other specified aftercare (ICD-10) Septic prepatellar bursitis of right knee ?M71.161 - Other infective bursitis, right knee (ICD-10) Acute viral syndrome ?B34.9 - Viral infection, unspecified (ICD-10) Diarrhea ?R19.7 - Diarrhea, unspecified (ICD-10) Rheumatoid arthritis flare ?M06.9 - Rheumatoid arthritis, unspecified (ICD-10) Polyarthralgia ?M25.50 - Pain in unspecified joint (ICD-10) Rheumatoid arthritis flare ?M06.9 - Rheumatoid arthritis, unspecified (ICD-10) Weakness ?R53.1 - Weakness (ICD-10) Mild shortness of breath ?R06.02 - Shortness of breath (ICD-10) Headache ?R51.9 - Headache, unspecified (ICD-10) Polyarthralgia ?M25.50 - Pain in unspecified joint (ICD-10) Flare of rheumatoid arthritis ?M06.9 - Rheumatoid arthritis, unspecified (ICD-10) Arthralgia ?M25.50 - Pain in unspecified joint (ICD-10) Drug-seeking behavior ?Z76.5 - Malingerer [conscious simulation] (ICD-10) Surgical History Total knee replacement status ?Z96.659 - Presence of unspecified artificial knee joint (ICD-10) H/O shoulder surgery ?Z98.890 - Other specified postprocedural states (ICD-10) Social History (Updated 04/20/23 @ 23:15 by April Sierra RN) Smoking status: Never smoker Nicotine containing products detail: chew tobacco Highest level of school completed/degree received: decline to answer Little interest or pleasure in doing things: not at all Feeling down, depressed, or hopeless: not at all Exam Narrative Exam Narrative: Vital signs reviewed and nurse's notes. The patient is not hypoxic. General: Alert, no acute distress, patient resting comfortably Skin: warm, intact, no pallor noted Head: Normocephalic, atraumatic Eye: Normal conjunctiva Respiratory: No acute distress Musculoskeletal: No evidence of deformity to the L knee or the right foot. There is minimal amount of left supra patellar swelling. There is no ecchymosis. No erythema or warmth noted. DP and PT pulses are intact 2+. Normal sensation, normal capillary refill less than 2 seconds. There is no cyanosis or mottling noted. The patient has tenderness to of the suprapatellar region of the left knee and tenderness along the medial aspect of the right foot including along the Achilles. The patient has no laxity with varus or valgus stressing. The patient has negative anterior drawer and Annia testing. The patient was able to flex and extend although with pain. Patient was able to extend leg off the cart without difficulty. No tenderness noted to the 5th MT, midfoot, ankle or proximal fibular area of the right foot and ankle. There is moderate pain with calcaneal squeeze, achilles tendon is intact and no defect is palpated. The patient has no pelvic instability. The patient has no shortening or rotation noted to the bilateral lower extremities. Neurological: alert and orient x4, normal sensory and motor observed. Psychiatric: Cooperative Constitutional Vital Signs, click to edit/add: Last Vital Signs Temp 98.9 F 06/23/24 19: Pulse 98 H 06/23/24 19: Resp 18 06/23/24 19:26 BP 162/98 H 06/23/24 19: Pulse Ox 98 06/23/24 19:26 O2 Del Method Room Air 06/23/24 19:26 Course Vital Signs Vital signs: Vital Signs Temperature 98.9 F 06/23/24 19: Pulse Rate 98 H 06/23/24 19:26 Respiratory Rate 18 06/23/24 19: Blood Pressure 162/98 H 06/23/24 19:26 Pulse Oximetry 98 06/23/24 19:26 Oxygen Delivery Method Room Air 06/23/24 19: Temperature 98.9 F 06/23/24 19:26 Pulse Rate 98 H 06/23/24 19:26 Respiratory Rate 18 06/23/24 19:26 Blood Pressure 162/98 H 06/23/24 19:26 Pulse Oximetry 98 06/23/24 19:26 Oxygen Delivery Method Room Air 06/23/24 19:26 MDM - Extremity (Nontraumatic) MDM Narrative Medical decision making narrative: The patient's presentation combined with his history and exam findings are suggestive of an acute gouty flare. He was ordered to receive IM Solu-Medrol as well as IM Toradol and was discharged home with a prescription for additional methylprednisolone. He has experienced this in the past and is comfortable managing this at home. He can follow-up with his primary care physician as needed. Return to the ED if he worsens Discharge Plan Discharge Chief Complaint: Extremity Problem, Nontraumatic Clinical Impression: Gout, arthritis, Polyarthralgia Patient Disposition: Home, Self-Care Time of Disposition Decision: 19:53 Prescriptions / Home Meds: New methylprednisolone [Medrol (Jamal)] 4 mg tablets,dose pack 4 mg PO DAILY Qty: 21 0RF No Action gabapentin [Neurontin] 300 mg capsule 300 mg PO TID allopurinol 300 mg tablet 800 mg PO .evening Patient Comments: 700 mg total daily. colchicine 0.6 mg tablet 0.6 mg PO .every other clonidine HCl 0.1 mg tablet 0.1 mg PO BID amlodipine 10 mg tablet 10 mg PO QDAY prednisone 10 mg tablet 10 mg PO DAILY oxycodone-acetaminophen [Percocet] 5-325 mg tablet 1 tab PO Q6H PRN (Reason: pain) 5 Days Qty: 20 0RF prednisone 10 mg tablet See Rx Instructions .ROUTE .COMPLEX Qty: 30 0RF Rx Instructions: 4 by mouth daily for three days then 3 by mouth daily for three days then 2 by mouth daily for three days then 1 by mouth daily for three days Print Language: Italian Instructions: Gout (ED), Arthralgia (ED) Referrals: LEYDI ACEVES [Primary Care Provider] - 1 week
[2024-06-23] MEDS: KETOROLAC TROMETHAMINE 60 MG/2 ML VIAL IM (20:08)
[2024-06-23] MEDS: METHYLPREDNISOLONE SOD SUCC PF 125 MG/2 ML VIAL IM (20:11)
== END 2024-06-23 20:16 | disposition home or self-care (01) ==
PROVIDERS: Emergency Provider Emergency Medicine; PCP Family Medicine
DX: M10.9 Gout, unspecified (principal); M25.571 Pain in right ankle and joints of right foot; M25.562 Pain in left knee; F17.220 Nicotine dependence, chewing tobacco, uncomplicated; Z96.659 Presence of unspecified artificial knee joint; M19.90 Unspecified osteoarthritis, unspecified site
CPT/HCPCS: 96372; 99284; J1885; J2919

== ENCOUNTER 2024-07-29 20:10 | Observation (INO) | payer OTHER, SELFPAY ==
--- OUTSIDE RECORDS SUMMARY | 2023-02-24 08:08 | XMS_ITS ---
Author Organization [facility] Address [address] [place] [address] Care Team Providers Care Fractionation Plant Supervisor Name Role Phone Malcolm Cid MD Primary Care Provider Juan José Casey [facility] [phone] Encounters Encounter Location Date Provider Diagnosis [facility] [address] [place] [address] 02/24/2023 Juan José Coffman Plan Of Treatment No Information Progress Notes * TRU CARDOZA MDOB:1989 (33 yo M)Acc No.[id number]:02/24/2023 Patient: R TRU SLOAN :1990 A ge:32 Y S ex:Male Address[place] [address] * true * Date: Generated for Printi ng/Fahillaryg/eTransmitting on: 0 07/31/2024 11:14 AM EDT
--- OUTSIDE RECORDS SUMMARY | 2023-02-24 08:08 | XMS_ITS ---
Author Organization [facility] Address [address] [place] [address] Care Team Providers Care Vp Digital Marketing Name Role Phone Malcolm Cid MD Primary Care Provider Juan José Casey [facility] [phone] Encounters Encounter Location Date Provider Diagnosis [facility] [address] [place] [address] 02/24/2023 Juan José Coffman Plan Of Treatment No Information Progress Notes * TRU CARDOZA MDOB:1989 (33 yo M)Acc No.[id number]:02/24/2023 Patient: R TRU SLOAN :1990 A ge:32 Y S ex:Male Address:[place] [address] * true * Date: Generated for Printi ng/Fahillaryg/eTransmitting on: 0 07/30/2024 07:41 PM EDT
--- OUTSIDE RECORDS SUMMARY | 2023-02-24 08:08 | XMS_ITS ---
Author Organization [facility] Address [address] [place] [address] Care Team Providers Care Mat Cutter Name Role Phone Malcolm Cid MD Primary Care Provider Juan José Casey [facility] [phone] Encounters Encounter Location Date Provider Diagnosis [facility] [address] [place] [address] 02/24/2023 Juan José Coffman Plan Of Treatment No Information Progress Notes * TRU CARDOZA MDOB:1989 (33 yo M)Acc No.[id number]:02/24/2023 Patient: R TRU SLOAN :1990 A ge:32 Y S ex:Male Address:[place] [address] * true * Date: Generated for Printi ng/Faxing/eTransmitting on: 0 08/04/2024 12:08 PM EDT
--- OUTSIDE RECORDS SUMMARY | 2023-02-24 08:08 | XMS_ITS ---
Author Organization [facility] Address [address] [place] [address] Care Team Providers Care Assistant Professor Of Sociology Name Role Phone Malcolm Cid MD Primary Care Provider Juan José Casey [facility] [phone] Encounters Encounter Location Date Provider Diagnosis [facility] [address] [place] [address] 02/24/2023 Juan José Coffman Plan Of Treatment No Information Progress Notes * TRU CARDOZA MDOB:1989 (33 yo M)Acc No.[id number]:02/24/2023 Patient: R TRU SLOAN :1990 A ge:32 Y S ex:Male Address[place] [address] * true * Date: Generated for Printi ng/Faxing/eTransmitting on: 0 07/29/2024 08:19 PM EDT
--- OUTSIDE RECORDS SUMMARY | 2023-03-08 07:45 | XMS_ITS ---
Author Organization [facility] Address [address] [place] [address] Care Team Providers Care Project Engineering Manager Name Role Phone Malcolm Cid MD Primary Care Provider Juan José Casey Unavailable [phone] Allergies No Known Allergies REASON FOR VISIT right knee [facility] Medications Medication SIG (Take, Route, Frequency, Duration) Notes Start Date End Date Status ALPRAZolam Active doxycycline Active oxyCODONE Active gabapentin Active traMADol Active colchicine Active escitalopram Active Acetaminophen-Oxycodone Hydrochloride 325 mg-5 mg 1 tab(s) orally every 8 hours PRN PAIN for 4 days 03/08/2023 03/12/2023 Active QUEtiapine Active Social History Tobacco Use: Social History Observation Description Date Details (start date - stop date) Never Smoker NA - NA Smoking History Question Answer Notes Smoking Status NonSmoker Encounters Encounter Location Date Provider Diagnosis [facility] Out[facility] [address] [place] [address] 03/08/2023 Juan José Coffman Contusion of right knee, subsequent encounter S80.01XD ; Knee bursitis, right M70.51 and Acute gout of right knee, unspecified cause M10.9 Assessments Encounter Date Diagnosis (ICD Code) Assessment Notes Treatment Notes Treatment Clinical Notes Section Notes 03/08/2023 Contusion of right knee, subsequent encounter (ICD-10 - S80.01XD) 03/08/2023 Knee bursitis, right (ICD-10 - M70.51) 03/08/2023 Acute gout of right knee, unspecified cause (ICD-10 - M10.9) 03/08/2023 Other For his right infrapatellar bursa I&D we will continue to observe. He will follow-up in 2 weeks to reassess his progress. If knee pain persist we have discussed the option of a intra-articular corticosteroid injection. Import medication Plan Of Treatment Medication Medication Name Sig Start Date Stop Date Notes Acetaminophen-Oxycodone Hydrochloride 325 mg-5 mg 1 tab(s) orally every 8 hours PRN PAIN for 4 days 03/08/2023 03/12/2023 Treatment Notes Assessment Notes Other For his right infrapatellar bursa I&D we will continue to observe. He will follow-up in 2 weeks to reassess his progress. If knee pain persist we have discussed the option of a intra-articular corticosteroid injection. Import medication Pending Test Test Name Order Date Work Slip Return to Work/ Full Duty 09/2023 Next Appt Details Follow Up: 2 Weeks, Reason: Progress Notes * TRU CARDZOA MDOB:1989 (33 yo M)Acc No.[id number]:03/08/2023 Progress Notes Patient: Kahlil TRU SLOAN Provider: Hellen Coffman MD :1990 A ge:33 Y S ex:Male Date:03/08/2023 Address:[address] [place], [place] [id number] Pcp:Malcolm Cid MD Subjective: * Chief Complaints: * R ight knee bwc * HPI: G eneral Follow Up Information: Patient presents today for follow-up of his right knee irrigation and debridement of the infrapatellar bursa. He reports infrapatellar bursa I&D is doing well without pain. Continues to have some knee pain. His primary care provider placed him on a steroid pack starting today. * Medical History: * Surgical History: S houlder surgery, left 03/2021Knee arthroscopy 01/2023 * Family History: N o Family History documented.. * Social History: C onsume alcohol: Yes . S moking History S moking Status N onSmoker. E xercise regularly: Yes . W hat is your place of residence?: home . * Medications: T akingescitalopram colchicine QUEtiapine traMADol gabapentin oxyCODONE doxycycline ALPRAZolam Medication List reviewed and reconciled with the patientTaking escitalopram Taking colchicine Taking QUEtiapine Taking traMADol Taking gabapentin Taking oxyCODONE Taking doxycycline Taking ALPRAZolam Medication List reviewed and reconciled with the patient * Allergies: N .K.D.A.no[Allergies Verified] Objective: * Examination: G eneral examination: E xamination today of his incision reveals it is healing nicely. No swelling. No erythema or warmth. Knee effusion persists but is significantly diminished. X -ray Imaging Studies: R esults from the aspiration of his knee are positive for uric acid crystals. M RI Imaging Studies: Assessment: * Assessment: 1. C ontusion of right knee, subsequent encounter - S80.01XD 2 . K nee bursitis, right - M70.51 3 . A cute gout of right knee, unspecified cause - M10.9 Plan: * Treatment: * Procedure Codes: * Follow Up: 2 Weeks * Images: * Sign off status: Completed true * Provider: Hellen Coffman MD Date: 0 03/08/2023 Generated for Justo rodrigez/Mateo/Tlsmitting on: 0 07/31/2024 11:15 AM EDT History and Physical Notes * HPI (History of Present Illness) Category Sub-Category Detail Notes Category Not es General Follow Up Information Patient presents tod ay for follow-up of his right knee irrigation and debridement of the infrapatellar bursa. He reports infrapatellar bursa I&D is doing well without pain. Continues to have some knee pain. His primary care provider placed him on a steroid pack starting today. Examination Category Sub-Category Detail Notes Category Not es General examination Examinat ion today of his incision reveals it is healing nicely. No swelling. No erythema or warmth. Knee effusion persists but is significantly diminished. X-ray Imaging Studies Results from the aspiration of his knee are positive for uric acid crystals MRI Imaging Studies
--- OUTSIDE RECORDS SUMMARY | 2023-03-08 07:45 | XMS_ITS ---
Author Organization [facility] Address [address] [place] [address] Care Team Providers Care Senior Sales Operations Analyst Name Role Phone Malcolm Cid MD Primary Care Provider Juan José Casey Unavailable [phone] Allergies No Known Allergies REASON FOR VISIT right knee [facility] Medications Medication SIG (Take, Route, Frequency, Duration) [...] NonSmoker Encounters Encounter Location Date Provider Diagnosis [facility] Outpatient [address] [place] [address] 03/08/2023 Juan José Coffman Contusion of right [...] 2 Weeks, Reason: Progress Notes * TRU CARDOZA MDOB:1989 (33 yo M)Acc No.[id number]:03/08/2023 Progress Notes Patient: Kahlil TRU SLOAN Provider: Hellen Coffman MD :1990 A ge:33 Y S ex:Male Date:03/08/2023 Address:[address] [place], [place] [id number] Pcp:Malcolm Cid MD Subjective: * Chief Complaints: [...] 03/08/2023 Generated for Justo rodrigez/Mateo/Tlsmitting on: 0 08/04/2024 12:09 PM EDT History and Physical Notes * HPI [...]
--- OUTSIDE RECORDS SUMMARY | 2023-03-08 07:45 | XMS_ITS ---
Author Organization [facility] Address [address] [place] [address] Care Team Providers Care Guest Experience Specialist Name Role Phone Malcolm Cid MD Primary Care Provider Juan José Casey Unavailable [phone] Allergies No Known Allergies REASON FOR VISIT right knee [facility] Medications Medication SIG (Take, Route, [...] NonSmoker Encounters Encounter Location Date Provider Diagnosis [facility] Outpatient [address] [place] [address] 03/08/2023 Juan José Coffman Contusion of right [...] * TRU CARDOZA MDOB:1989 (33 yo M)Acc No.[id number]:03/08/2023 Progress Notes Patient: Kahlil TRU SLOAN Provider: Hlelen Coffman MD :1990 A ge:33 Y S ex:Male Date:03/08/2023 Address:[address] [place], [place] [id number] Pcp:Malcolm Cid MD Subjective: * Chief Complaints: [...] 03/08/2023 Generated for Justo rodrigez/Mateo/Tlsmitting on: 0 07/30/2024 07:42 PM EDT History and Physical Notes * [...]
--- OUTSIDE RECORDS SUMMARY | 2023-03-08 07:45 | XMS_ITS ---
Author Organization [facility] Address [address] [place] [address] Care Team Providers Care Learning Developer Name Role Phone Malcolm Cid MD Primary Care Provider Juan José Casey Unavailable [phone] Allergies No Known Allergies REASON FOR VISIT right knee [facility] Medications Medication SIG (Take, Route, [...] NonSmoker Encounters Encounter Location Date Provider Diagnosis [facility] [address] [place] [address] 03/08/2023 Juan José Coffman Contusion of right [...] * TRU CARDOZA MDOB:1989 (33 yo M)Acc No.[id number]:03/08/2023 Progress Notes Patient: Kahlil TRU SLOAN Provider: Hellen Coffman MD :1990 A ge:33 Y S ex:Male Date:03/08/2023 Address:[address] [place], [place] [id number] Pcp:Malcolm Cid MD Subjective: * Chief Complaints: [...] MD Date: 0 03/08/2023 Generated for Justo rodrigez/Mateo/Jermaineitting on: 0 07/29/2024 08:20 PM EDT History and Physical Notes * [...]
--- OUTSIDE RECORDS SUMMARY | 2023-03-22 07:30 | XMS_ITS ---
Author Organization [facility] Address [address] [place] [address] Care Team Providers Care Epic Anesthesia Analyst Name Role Phone Palak CABRAL, Malcolm Primary Care Provider Juan José Casey Unavailable [phone] REASON FOR VISIT Right knee bwc Medications Medication SIG (Take, Route, Frequency, Duration) Notes Start Date End Date Status gabapentin Active oxyCODONE Active traMADol Active ALPRAZolam Active doxycycline Active QUEtiapine Active escitalopram Active colchicine Active Encounters Encounter Location Date Provider Diagnosis [facility] Office [address] [place] [address] [place] [address] 03/22/2023 Juan José Coffman Plan Of Treatment No Information Progress Notes * TRU CARDOZA MDOB:1989 (34 yo M)Acc No.[id number]:03/22/2023 Patient: Kahlil CHANTELLTANTRU Guillory Provider: Hellen Coffman MD :1990 A ge:33 Y S ex:Male Date:03/22/2023 [facility] Pcp:Malcolm Cid MD Subjective: * Chief Complaints: * 1 . Right knee bwc. * Medical History: * Medications: T aking escitalopram , Taking colchicine , Taking QUEtiapine , Taking traMADol , Taking gabapentin , Taking oxyCODONE , Taking doxycycline , Taking ALPRAZolam Objective: * Vitals: Assessment: Plan: * Treatment: Forms: * Images: * Electronic signature of Theodore Coffman MD on 07/30/2024 at 07:41 PM EDT Sign off status: Pending * Provider: Hellen Coffman MD Date: 0 03/22/2023 Generated for Justo rodrigez/Mateo/Annetta on: 0 07/30/2024 07:41 PM EDT
--- OUTSIDE RECORDS SUMMARY | 2023-03-22 07:30 | XMS_ITS ---
Author Organization [facility] Address [address] [place] [address] Care Team Providers Care Supervisor Slashing Department Name Role Phone Palak CABRAL, Malcolm Primary Care Provider Juan José Casey Unavailable [phone] REASON FOR VISIT Right knee bwc Medications Medication SIG (Take, Route, Frequency, Duration) Notes Start Date End Date Status gabapentin Active oxyCODONE Active traMADol Active ALPRAZolam Active doxycycline Active QUEtiapine Active escitalopram Active colchicine Active Encounters Encounter Location Date Provider Diagnosis [facility] Office [address] [place] [address] [place] [address] 03/22/2023 Juan José Coffman Plan Of Treatment No Information Progress Notes * TRU CARDOZA MDOB:1989 (34 yo M)Acc No.[id number]:03/22/2023 Patient: Kahlil CHANTELLTANTRU Guillory Provider: Hellen Coffman MD :1990 A ge:33 Y S ex:Male Date:03/22/2023 [facility] Pcp:Malcolm Cid MD Subjective: * Chief Complaints: * 1 . Right knee bwc. * Medical History: * Medications: T aking escitalopram , Taking colchicine , Taking QUEtiapine , Taking traMADol , Taking gabapentin , Taking oxyCODONE , Taking doxycycline , Taking ALPRAZolam Objective: * Vitals: Assessment: Plan: * Treatment: Forms: * Images: * Electronic signature of Theodore Cfofman MD on 07/31/2024 at 11:14 AM EDT Sign off status: Pending * Provider: Hellen Coffman MD Date: 0 03/22/2023 Generated for Justo rodrigez/Mateo/Annetta on: 0 07/31/2024 11:14 AM EDT
--- OUTSIDE RECORDS SUMMARY | 2023-03-22 07:30 | XMS_ITS ---
Author Organization [facility] Address [address] [place] [address] Care Team Providers Care Fisher Trot Line Name Role Phone Palak CABRAL, Malcolm Primary Care Provider Juan José Casey Unavailable [phone] REASON FOR VISIT Right knee bwc Medications Medication SIG (Take, Route, Frequency, Duration) Notes Start Date End Date Status gabapentin Active oxyCODONE Active traMADol Active ALPRAZolam Active doxycycline Active QUEtiapine Active escitalopram Active colchicine Active Encounters Encounter Location Date Provider Diagnosis [facility] Office [address] [place] [address] [place] [address] 03/22/2023 Juan José Coffman Plan Of Treatment No Information Progress Notes * TRU CARDOZA MDOB:1989 (34 yo M)Acc No.[id number]:03/22/2023 Patient: Kahlil CHANTELLTANTRU Guillory Provider: Hellen Coffman MD :1990 A ge:33 Y S ex:Male Date:03/22/2023 [facility] Pcp:Malcolm Cid MD Subjective: * Chief Complaints: * 1 . Right knee bwc. * Medical History: * Medications: T aking escitalopram , Taking colchicine , Taking QUEtiapine , Taking traMADol , Taking gabapentin , Taking oxyCODONE , Taking doxycycline , Taking ALPRAZolam Objective: * Vitals: Assessment: Plan: * Treatment: Forms: * Images: * Electronic signature of Theodore Coffman MD on 07/29/2024 at 08:18 PM EDT Sign off status: Pending * Provider: Hellen Coffman MD Date: 0 03/22/2023 Generated for Justo rodrigez/Mateo/Annetta on: 0 07/29/2024 08:18 PM EDT
--- OUTSIDE RECORDS SUMMARY | 2023-03-22 07:30 | XMS_ITS ---
Author Organization [facility] Address [address] [place] [address] Care Team Providers Care Acquisition Consultant Name Role Phone Palak CABRAL, Malcolm Primary Care Provider Juan José Casey Unavailable [phone] REASON FOR VISIT Right knee bwc Medications Medication SIG (Take, Route, Frequency, Duration) Notes Start Date End Date Status gabapentin Active oxyCODONE Active traMADol Active ALPRAZolam Active doxycycline Active QUEtiapine Active escitalopram Active colchicine Active Encounters Encounter Location Date Provider Diagnosis [facility] Office [address] [place] [address] [address] [place] [address] 03/22/2023 Juan José Coffman Plan Of Treatment No Information Progress Notes * TRU CARDOZA MDOB:1989 (34 yo M)Acc No.[id number]:03/22/2023 Patient: Kahlil CHANTELLTANTRU Guillory Provider: Hellen Coffman MD :1990 A ge:33 Y S ex:Male Date:03/22/2023 [facility] Pcp:Malcolm Cid MD Subjective: * Chief Complaints: * 1 . Right knee bwc. * Medical History: * Medications: T aking escitalopram , Taking colchicine , Taking QUEtiapine , Taking traMADol , Taking gabapentin , Taking oxyCODONE , Taking doxycycline , Taking ALPRAZolam Objective: * Vitals: Assessment: Plan: * Treatment: Forms: * Images: * Electronic signature of Theodore Coffman MD on 08/04/2024 at 12:07 PM EDT Sign off status: Pending * Provider: Hellen Coffman MD Date: 0 03/22/2023 Generated for Justo rodrigez/Mateo/Annetta on: 0 08/04/2024 12:07 PM EDT
[2024-07-29 20:12] VITALS: BP 142/84; PULSE 102; TEMP 37.8; BMI 27.6
--- OUTSIDE RECORDS SUMMARY | 2024-07-29 20:17 | XMS_ITS | CCD ---
Author Organization [facility] Care Team Providers Care Screener Operator Name Role Phone LEYDI ACEVES Primary Care Unavailable Leydi Aceves Primary Care Provider MD Leydi Aceves Primary Care Provider MD Juvenal Smith Emergency Provider MD Adam Young Admit Provider [phone] MD Hector Adam Attending Provider Leydi [...] Unavailable HAY ., DR DUGGAN Admitting Unavailable [place] MD [facility] Care Provider KAYCE COFFMAN Referring Unavailable [place] Primary Care Unavailable Ladi Huber Attending Unavailable [place] MD [facility] Care Provider Ketan CABRAL [facility] Unavailable Ketan CABRAL [facility] Provider [phone] MD Ketan [facility] Primary Care Provider [phone] MD Nicola Leyva Attending Provider Nicola Leyva Attending Unavailab le [facility] Unavailable Adam Young Admitting Unavailable Nicola Leyva Attending Unavailab le [facility] Care Unavailable Nicola Leyva Admitting Unavailab le Wednesday METAL MACHINE OPERATOR, [place] Unavailable DELMY BOYLE Referring Unavailable KETAN, [facility] Care Unavailable DELMY BOYLE Referring Unavailable KETAN, [facility] Care Unavailable DELMY BOYLE Attending Unavailable KETAN, [facility] Care Unavailable DELMY BOYLE Referring Unavailable KETAN, [facility] Care Unavailable KETAN, [facility] Care Unavailable DELMY BOYLE Attending Unavailable DELMY BOYLE Referring Unavailable KETAN, [facility] Primary Care Unavailable DELMY BOYLE Attending Unavailable KETAN, [facility] Primary Care Unavailable Ivon BENITES, Jayne Unavailable MARINA REES Attending Unavailable MARINA REES Attending Unavailable LEYDI ACEVES Attending Unavailable LEYDI ACEVES Attending Unavailable MARINA REES Attending Unavailable Merry Paz LPN Unavailable Unavailable Medications Current Medications Medication Drug Class(es) Dates Sig (Normalized) Sig (Original) acetaminophen 325 mg / HYDROcodone bitartrate 5 mg oral tablet (20 sources) Opioid Agonist Start: 07-07-2024 End: 07-12-2024 take 1 tablet by mouth once daily as needed for pain HYDROcodone-aceta minophen ([place]) 5-325 MG tablet Indications: 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) Take 1 tablet by mouth Daily as needed for severe pain for up to 5 days 5 tablet 07/07/2024 07/12/2024 Active Start: 07-03-2024 End: 07-08-2024 take 1 tablet by mouth once HYDROcodone-acetaminophen ([place]) 5-325 MG tablet Indications: 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) Take 1 tablet by mouth every 12 (twelve) hours if needed for severe pain for up to 5 days 10 tablet 07/03/2024 07/07/2024 Discontinued (Reorder) Start: 06-27-2024 End: 07-03-2024 take 1 tablet by mouth every eight hours for pain HYDROcodone-acetaminophen ([place]) 5-325 MG tablet Indications: 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) Take 1 tablet by mouth every 8 (eight) hours if needed for severe pain for up to 5 days 15 tablet 06/27/2024 07/03/2024 Discontinued (Reorder) Start: 05-18-2024 End: 06-24-2024 take 1 tablet by mouth every six hours for pain HYDROcodone-acetaminophen ([place]) 5-325 MG tablet Indications: 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) Take 1 tablet by mouth every 6 (six) hours if needed for severe pain for up to 5 days 20 tablet 06/19/2024 06/24/2024 Active Start: 05-11-2024 End: 05-16-2024 take 1 tablet by mouth every six hours for pain HYDROcodone-acetaminophen ([place]) 5-325 MG tablet Indications: Abscess of right index finger Take 1 tablet by mouth every 6 (six) hours if needed for severe pain for up to 5 days 20 tablet 05/11/2024 05/16/2024 Active Start: 04-20-2024 End: 04-30-2024 take 1 tablet by mouth every six hours for pain HYDROcodone-acetaminophen ([place]) 5-325 MG tablet Indications: Abscess of right [...] 07, 2021 12:00am May 09, 2023 1:48am [id number] 200 actuat albuterol 0.09 mg/actuat metered dose inhaler (6 sources) beta2-Adrenergic Agonist Start: 10-10-2023 albut rocío HFA 90 mcg/act inhaler 10/10/2023 Active allopurinol 100 mg oral tablet (20 sources) Xanthine Oxidase Inhibitor Start: 05-09-2023 Allopurinol Active 300 MG PO Daily May 09, 2023 1:00am take with Allopurinol 100mg tablet to =400mg Start: 03-08-2023 take 2 tablets by mo uth once daily allopurinol (Zyloprim) 100 MG tablet Take 200 mg by mouth Daily Take with Allopurinol 3oomg (2 tabs)=700mg total 03/08/2023 Active Start: 03-08-2023 take 1 tablet by barbara [...] oral tablet (5 sources) Penicillin-class Antibacterial Start: End: take 1 [...] oral capsule (20 sources) Anti-epileptic Agent Start: 06-05-2024 take 1 capsule by mouth in the morning gabapentin (Neurontin) 300 MG capsule Indications: Other chronic pain Take 1 capsule (300 mg) by mouth in the morning and 1 capsule (300 mg) before bedtime. 100 capsule 3 06/05/2024 Active Start: 01-17-2024 take 1 capsule by mo uth once daily at bedtime gabapentin (Neurontin) 300 [...] after 12 hours. 30 Patch 01/04/2024 Active methylPREDNISolone (6 sources) Corticosteroid Start: 07-20-2024 methylPREDNISo lone (Medrol Dospak) 4 MG tablets Indications: 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) Follow schedule on package instructions 21 tablet 07/20/2024 Active Start: 06-23-2024 methylPREDNISo lone (Medrol Dospak) 4 MG tablets TAKE 6 TABLETS ON DAY 1 DIRECTED ON PACKAGE AND DECREASE BY 1 TAB EACH DAY FOR A TOTAL OF 6 DAYS 06/23/2024 Active ondansetron 4 mg disintegrating oral tablet [...] involving multiple sites with positive rheumatoid factor ([facility]) Take 4 tablets (40 mg) by mouth [...] (20 sources) Opioid Agonist Start: 04-04-2024 End: 08-25-2024 take 1 tablet by mouth once traMADol (Ultram) 50 MG tablet Indications: 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) Take 1 tablet (50 mg) by mouth every 12 (twelve) hours if needed for moderate pain 60 tablet 07/26/2024 08/25/2024 Active Start: 10-11-2023 End: 02-06-2024 take 1 [...] Discontinued 5 MG PO Twice daily 30 15 May 12, 2023 12:00am August 22, 2023 [...] Discontinued 5 MG PO Every morning 15 15 December 10, 2021 12:00am May 09, [...] Problem Classification Problem Date Documented Date Episodic/Chronic Alcohol-related disorders (1 source) Alcohol dependence with intoxication, unspecified; Translations: [ALCOHOL DEPEND W/INTOX UNS] Onset: 12-15-2021 Chronic Chronic kidney disease (20 sources) Chronic [...] unspecified] Onset: 07-29-2022 07-29-2022 Chronic Mood disorders (20 sources) Recurrent major depressive episodes, moderate ; Translations: [Major depressive disorder, recurrent, moderate] Onset: 12-15-2021 Resolved: 05-18-2024 12-08-2021 Chronic Nutritional deficiencies (20 sources) Vitamin D deficiency; Translations: [Vitamin D deficiency, unspecified] Onset: 07-29-2022 07-29-2022 Chronic Osteoarthritis (20 sources) Localized, primary osteoarthritis of the shoulder region; Translations: [Primary osteoarthritis, unspecified shoulder] Onset: 07-29-2022 07-29-2022 Chronic Other aftercare (2 sources) Patient encounter status; Translations: [Other ferry terminal agent (current) drug therapy] Episodic Other aftercare (2 sources) Long-term current use of drug therapy; Translations: [Other ferry terminal agent (current) drug therapy] 01-04-2024 Episodic Other connective [...] Classification Problem Date Documented Da te Episodic/Chronic Adjustment disorders (20 sources) Adjustment disorder with depressed mood; Translations: [Adjustment disorder with depressed mood] Onset: 07-29-2022 Resolved: 05-18-2024 3 Chronic Anxiety disorders (20 sources) Anxiety; Translations: [Anxiety disorder, unspecified] Onset: 07-29-2022 Resolved: 05-18-2024 07-29-2022 Chronic Deficiency and other anemia (20 sources) Anemia; [...] 01-31-2022 Episodic Other aftercare (3 sources) Other ferry terminal agent (current) drug therapy; Translations: [OTH END USER SUPPORT SPECIALIST CURRENT DRUG THERAPY] Onset: 06-30-2022 Episodic Other [...] Onset: 02-03-2022 Episodic Other upper respiratory infections (20 sources) Acute pansinusitis; Translations: [Acute pansinusitis, unspecified] Onset: 01-11-2024 Resolved: 05-18-2024 08-22-2023 Episodic Poisoning by other medications and drugs (20 sources) Poisoning by unspecified drugs, medicaments and biological substances, accidental (unintentional), initial encounter; Translations: [Poisoning by unspecified drug or medicinal substance] Onset: 06-10-2023 06-10-2023 Episodic Residual codes; unclassified (20 sources) Insomnia; Translations: [Insomnia, unspecified] Onset: 07-29-2022 Resolved: 05-18-2024 07-29-2022 Episodic Spondylosis; intervertebral disc disorders; other [...] BACK PAIN, UNSPECIFIED] Onset: 01-14-2022 Viral infection (20 sources) Viral infection, unspecified; Translations: [Disease caused by 2019-nCoV] Onset: 02-03-2022 10-11-2023 Episodic Results Test Name Value Interpretation Reference Range Facility ALL CBC WITH AUTO DIFFon BASOPHILS ABSOLUTE AUTO 0 [facility] Basophils/100 WBC (Bld) 0.2 % 0.2 - 2.0 % [facility] Eosinophils/100 WBC (Bld) 0.5 % Low 0.9 - 7.0 % [facility] Erythrocyte distribution width (RBC) [Ratio] 13 % 11.0 - 15.0 % [facility] Hematocrit (Bld) [Volume fraction] 40.4 % Low 42.0 - 54.0 % [facility] Hemoglobin (Bld) [Mass/Vol] 13.6 g/dL Low 14.0 - 18.0 g/dL [facility] IMMATURE GRANULOCYTES ABS AUTO 0.02 [facility] Immature granulocytes/100 WBC (Bld) 0.2 % 0.0 - 0.5 % [facility] Interpretation and review of laboratory results Abnormal [facility] LYMPHOCYTES ABSOLUTE [facility] Lymphocytes/100 WBC (Bld) 37.1 % 20.5 - 60.0 % [facility] MCH (RBC) [Entitic mass] 29.4 pg 25.9 - 34.0 pg [facility] MCHC (RBC) [Mass/Vol] 33.7 g/dL 29.9 - 35.2 g/dL [facility] MCV (RBC) [Entitic vol] 87.4 fL 80.0 - 94.0 fL [facility] MONOCYTES ABSOLUTE AUTO 0.8 [facility] Monocytes/100 WBC (Bld) 9.6 % 1.7 - 12.0 % [facility] NEUTROPHILS ABSOLUTE AUTO 4.4 [facility] Neutrophils/100 WBC (Bld) 52.4 % 43.0 - 75.0 % [facility] Platelet mean volume (Bld) [Entitic vol] 10.5 fL 9.5 - 13.5 fL [facility] TBH EO # 0 [facility]H PLT [address] [facility] RBC 4.62 Low 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 Polyarthritis with several nodules mainly [...] arthritic flares once every 4 months[address] mechanic [address] Jaime in [place] who did diagnostic knee aspiration which according to patient was positive for uric acid crystals. Treated with steroids and continued allopurinol. He has not seen Dr. Jaime since 2014. In 2014, he was hospitalized in [place] for acute polyarthritis. Saw hydroelectric mechanic while in hospital who told him that [...] shoulder surgery by Dr. Tc Coffey at [facility] No post op complications. Was in PT [...] of gout 06/2023. He was seen in [facility] for gout flare. Given steroid injection [...] blood Nega (more content not included)... Normal [facility] Cyn 01-04-2024 LIANNAN Telephone (RHEUAV) -- NICK WRAY ([id number]) 1990 M Date Time Provider Department 01/04/24 DELMY BOYLE During your visit today, we recorded the following information about you: Camilla Holt METAL MACHINE OPERATOR 01/04/2024 1:23 PM Signed Nick Bonifaciojustin (Munoz: [id number]) PA Rx #: [id number] Need Help? Call us at Outcome Denied [...] of therapy with generic Lidocaine patch. [facility] Policy for Medical Necessity as posted on the [facility] website and [facility] Preferred Drug List criteria were reviewed and per [place] Administrative Code Rule 5160-1-01 (C) and (B), [...] through the community. Drug ZTlido 1.8% patches [facility] cloud logo Form [place] Medicaid [facility] [employer] Electronic PA Form (2016 NCPDP) Original Claim Info 75 Camlila Holt BREE 01/04/2024 1:23 PM Signed FYI- [...] Status:Closed by CAMILLA HOLT on 01/04/24 Normal [facility] No Panel Informationon 01-03 Radiology Study observation (narrative) [facility] XR FOOT 3V AP/LAT/OBL BILon 01-04-2024 XR FOOT 3V AP/LAT/OBL RAMIRO * * *Final Report* * * DATE OF EXAM: Jan 04 2024 9:48AM [id number] - XR FOOT 3V AP/LAT/OBL RAMIRO / [...] progressed from 05/04/2017 Mild right foot osteoarthritis. Work Checker: PSCB Transcribe Date/Time: Jan 04 2024 10:13A Dictated by : UMA ROGERS MD This examination was interpreted and the report reviewed and electronically signed by: CHELSEA REEVES MD on Jan 04 2024 3:12PM EST [id number] [facility] XR Foot - bilateral AP and [...] acute fracture or dislocation. Mild pes planus. [facility] Provider, [facility] - 01/04/2024 * * *Final Report* * [...] progressed from 05/04/2017 Mild right foot osteoarthritis. Work Checker: ADELA Transcribe Date/Time: Jan 04 2024 10:13A Dictated by : UMA ROGERS MD This examination was interpreted and the report reviewed and electronically signed by: CHELSEA REEVES MD on Jan 04 2024 3:12PM EST [facility] XR KNEE 4V AP/PA/LAT/MERCH B [facility] 01-04-2024 XR KNEE 4V AP/PA/LAT/MERCH RAMIRO * [...] similar to 05/04/2017. Mild right knee osteoarthritis. 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 Mild right knee osteoarthritis. Work Checker: PSCB Transcribe Date/Time: Jan 04 2024 12:48P Dictated by : CHELSEA REEVES MD This examination was interpreted and the report reviewed and electronically signed by: CHELSEA REEVES MD on Jan 04 2024 1:21PM EST [facility] * * *Final Report* * * [...] findings are similar when compared to 05/04/2017. [facility] Provider, [facility] - 01/04/2024 * * *Final Report* * [...] similar to 05/04/2017. Mild right knee osteoarthritis. Work Checker: ADELA Transcribe Date/Time: Jan 04 2024 12:48P Dictated by : CHELSEA REEVES MD This examination was interpreted and the report reviewed and electronically signed by: CHELSEA REEVES MD on Jan 04 2024 1:21PM EST [facility] XR Knee - bilateral 4 ViewsO rdered By: Ccf Provider on 01-04-2024 [facility] ALT SerPl-cCncon 12-30-2023 ALT [Catalytic activity/Vol] 20 U/L Normal 10-54 [facility] Comment on above: Order Comment: Speci men Type: BLOOD SPECIMEN Ordering Facility: [facility] Address: [address] [place] [address] Performed By: #### C RET1 #### [facility] CLIA [id number] [address] [place] [address] AST SerPl-cCncon 12-30-2023 AST [Catalytic activity/Vol] 18 U/L Normal 14-40 [facility] Comment on above: Order Comment: Speci men Type: BLOOD SPECIMEN Ordering Facility: [facility] Address: [address] [place] [address] Performed By: #### C RET1 #### [facility] CLIA [id number] [address] [place] [address] 07397 Albumin SerPl-mCncon 024 Albumin [Mass/Vol] 4.1 g/dL Normal 3.9-4.9 [facility] Comment on above: Order Comment: Speci men Type: BLOOD SPECIMEN Ordering Facility: [facility] Address: [address] [place] [address] Performed By: #### C RET1 #### [facility] CLIA [id number] [address] [place] [address] 25849 CBC W Auto Differential pane l (Bld)on 12-30-2023 Basophils (Bld) [#/Vol] 0.03 10*3/uL Normal <0.11 [facility] Comment on above: Order Comment: Speci men Type: BLOOD SPECIMEN Ordering Facility: [facility] Address: [address] [place] [address] Performed By: #### 5 7021-8 #### [facility] CLIA [id number] [address] [place] [address]122 Basophils/100 WBC (Bld) 0.6 % Normal [facility] Comment on above: Order Comment: Speci men Type: BLOOD SPECIMEN Ordering Facility: [facility] Address: [facility] [place] [address] Performed By: #### 5 7021-8 #### [facility] CLIA [id number] [address] [place] [address]3034 Differential cell count method Nom (Bld) Auto Normal [facility] Comment on above: Order Comment: Speci men Type: BLOOD SPECIMEN Ordering Facility: [facility] Address: [address] [place] [address] Performed By: #### 5 7021-8 #### [facility] CLIA [id number] [address] [place] [address] 27767 Eosinophils (Bld) [#/Vol] 0.06 10*3/uL Normal <0.46 [facility] Comment on above: Order Comment: Speci men Type: BLOOD SPECIMEN Ordering Facility: [facility] Address: [address] [place] [address] Performed By: #### 5 7021-8 #### [facility] CLIA [id number] [address] [place] [address] 09076 Eosinophils/100 WBC (Bld) 1.3 % Normal [facility] Comment on above: Order Comment: Speci men Type: BLOOD SPECIMEN Ordering Facility: [facility] Address: [address] [place] [address] Performed By: #### 5 7021-8 #### [facility] CLIA [id number] [address] [place] [address]16 Erythrocyte distribution width (RBC) [Ratio] 13.2 % Normal 11.5-15.0 [facility] Comment on above: Order Comment: Speci men Type: BLOOD SPECIMEN Ordering Facility: [facility] Address: [address] [place] [address] Performed By: #### 5 7021-8 #### [facility] CLIA [id number] [address] [place] [address] 41585 Hematocrit (Bld) [Volume fraction] 40.9 % Normal 39.0-51.0 [facility] Comment on above: Order Comment: Speci men Type: BLOOD SPECIMEN Ordering Facility: [facility] Address: [address] [place] [address] Performed By: #### 5 7021-8 #### [facility] CLIA [id number] [address] [place] [address] 88278 Hemoglobin (Bld) [Mass/Vol] 14.3 g/dL Normal 13.0-17.0 [facility] Comment on above: Order Comment: Speci men Type: BLOOD SPECIMEN Ordering Facility: [facility] Address: [address] [place] [address] Performed By: #### 5 7021-8 #### [facility] CLIA [id number] [address] [place] [address] 69050 Immature granulocytes (Bld) [#/Vol] 10*3/uL Normal <0.10 [facility] Comment on above: Order Comment: Speci men Type: BLOOD SPECIMEN Ordering Facility: [facility] Address: [address] [place] [address] Performed By: #### 5 7021-8 #### [facility] CLIA [id number] [address] [place] [address] 64016 Immature granulocytes/100 WBC (Bld) 0.2 % Normal [facility] Comment on above: Order Comment: Speci men Type: BLOOD SPECIMEN Ordering Facility: [facility] Address: [address] [place] [address] Performed By: #### 5 7021-8 #### [facility] CLIA [id number] [address] [place] [address] 66938 Lymphocytes (Bld) [#/Vol] 1.71 10*3/uL Normal 1.00-4.00 [facility] Comment on above: Order Comment: Speci men Type: BLOOD SPECIMEN Ordering Facility: [facility] Address: [address] [place] [address] Performed By: #### 5 7021-8 #### [facility] CLIA [id number] [address] [place] [address] 83387 Lymphocytes/100 WBC (Bld) 36.6 % Normal [facility] Comment on above: Order Comment: Speci men Type: BLOOD SPECIMEN Ordering Facility: [facility] Address: [address] [place] [address] Performed By: #### 5 7021-8 #### [facility] CLIA [id number] [address] [place] [address] 18615 MCH (RBC) [Entitic mass] 29.9 pg Normal 26.0-34.0 [facility] Comment on above: Order Comment: Speci men Type: BLOOD SPECIMEN Ordering Facility: [facility] Address: [address] [place] [address] Performed By: #### 5 7021-8 #### [facility] CLIA [id number] [address] [place] [address] 49231 MCHC (RBC) [Mass/Vol] 35.0 g/dL Normal 30.5-36.0 [facility] Comment on above: Order Comment: Speci men Type: BLOOD SPECIMEN Ordering Facility: [facility] Address: [address] [place] [address] Performed By: #### 5 7021-8 #### [facility] CLIA [id number] [address] [place] [address] 59374 MCV (RBC) [Entitic vol] 85.4 fL Normal 80.0-100.0 [facility] Comment on above: Order Comment: Speci men Type: BLOOD SPECIMEN Ordering Facility: [facility] Address: [address] [place] [address] Performed By: #### 5 7021-8 #### [facility] CLIA [id number] [address] [place] [address] Monocytes (Bld) [#/Vol] 0.28 10*3/uL Normal <0.87 [facility] Comment on above: Order Comment: Speci men Type: BLOOD SPECIMEN Ordering Facility: [facility] Address: [address] [place] [address] Performed By: #### 5 7021-8 #### [facility] CLIA [id number] [address] [place] [address] 69617 Monocytes/100 WBC (Bld) 6.0 % Normal [facility] Comment on above: Order Comment: Speci men Type: BLOOD SPECIMEN Ordering Facility: [facility] Address: [address] [place] [address] Performed By: #### 5 7021-8 #### [facility] CLIA [id number] [address] [place] [address] 53424 Neutrophils (Bld) [#/Vol] 2.58 10*3/uL Normal 1.45-7.50 [facility] Comment on above: Order Comment: Speci men Type: BLOOD SPECIMEN Ordering Facility: [facility] Address: [address] [place] [address] Performed By: #### 5 7021-8 #### [facility] CLIA [id number] [address] [place] [address] 36743 Neutrophils/100 WBC (Bld) 55.3 % Normal [facility] Comment on above: Order Comment: Speci men Type: BLOOD SPECIMEN Ordering Facility: [facility] Address: [address] [place] [address] Performed By: #### 5 7021-8 #### [facility] CLIA [id number] [address] [place] [address] 48325 Nucleated RBC (Bld) [#/Vol] 10*3/uL Normal <0.01 [facility] Comment on above: Order Comment: Speci men Type: BLOOD SPECIMEN Ordering Facility: [facility] Address: [address] [place] [address] Performed By: #### 5 7021-8 #### [facility] CLIA [id number] [address] [place] [address] Nucleated RBC/100 WBC (Bld) [Ratio] 0.0 /100 WBC Normal [facility] [facility] Comment on above: Order Comment: Speci men Type: BLOOD SPECIMEN Ordering Facility: [facility] Address: [address] [place] [address] Performed By: #### 5 7021-8 #### [facility] CLIA [id number] [address] [place] [address] 46441 Platelet mean volume (Bld) [Entitic vol] 10.4 fL Normal 9.0-12.7 [facility] Comment on above: Order Comment: Speci men Type: BLOOD SPECIMEN Ordering Facility: [facility] Address: [address] [place] [address] Performed By: #### 5 7021-8 #### [facility] CLIA [id number] [address] [place] [address] 14474 Platelets (Bld) [#/Vol] 277 10*3/uL Normal 150-400 [facility] Comment on above: Order Comment: Speci men Type: BLOOD SPECIMEN Ordering Facility: [facility] Address: [address] [place] [address] Performed By: #### 5 7021-8 #### [facility] CLIA [id number] [address] [place] [address] 48231 RBC (Bld) [#/Vol] 4.79 10*6/uL Normal 4.20-6.00 [facility] Comment on above: Order Comment: Speci men Type: BLOOD SPECIMEN Ordering Facility: [facility] Address: [address] [place] [address] Performed By: #### 5 7021-8 #### [facility] CLIA [id number] [address] [place] [address] 57828 WBC (Bld) [#/Vol] 4.67 10*3/uL Normal 3.70-11.00 [facility] Comment on above: Order Comment: Speci men Type: BLOOD SPECIMEN Ordering Facility: [facility] Address: [place] [id number] Performed By: #### 5 7021-8 #### [facility] CLIA [id number] [address] [place] [address] [facility] CBC W AUTO DIFF BLDon Basophils/100 WBC (Bld) 0.6 % [facility] BASOPHILS # BLD AUTO 0.03 [facility] [place] DIFFERENTIAL METHOD BLD Auto [facility] EOSINOPHIL # BLD AUTO 0.06 [facility] [place] LYMPHOCYTES # BLD AUTO 1.71 [facility] MONOCYTES # BLD AUTO 0.28 [facility] [place] NEUTROPHILS # BLD AUTO 2.58 [facility] NRBC # BLD AUTO <0.01 [facility] [place] NRBC/100 WBC BLD-RTO 0 /100 WBC [facility] PLATELET # BLD AUTO 277 [facility] PMV BLD AUTO 10.4 fL 9.0 - 12.7 fL [facility] WBC # BLD AUTO 4.67 [facility] Eosinophils/100 WBC (Bld) 1.3 % [facility] Erythrocyte distribution width (RBC) [Ratio] 13.2 % 11.5 - 15.0 % [facility] Hematocrit (Bld) [Volume fraction] 40.9 % 39.0 - 51.0 % [facility] Hemoglobin (Bld) [Mass/Vol] 14.3 g/dL 13.0 - 17.0 g/dL [facility] IMM GRANULOCYTES # BLD AUTO <0.03 [facility] [place] IMM GRANULOCYTES/LEUK NFR BLD AUTO 0.2 % [facility] Lymphocytes/100 WBC (Bld) 36.6 % [facility] MCH (RBC) [Entitic mass] 29.9 pg 26.0 - 34.0 pg [facility] MCHC (RBC) [Mass/Vol] 35 g/dL 30.5 - 36.0 g/dL [facility] MCV (RBC) [Entitic vol] 85.4 fL 80.0 - 100.0 fL [facility] Monocytes/100 WBC (Bld) 6 % [facility] Neutrophils/100 WBC (Bld) 55.3 % [facility] RBC (Bld) [#/Vol] 4.79 10*6/uL 4.20 - 6.0 0 m/uL [facility] Specimen Type: BLOOD SPECIMEN Ordering Facility: [facility] Address: [address] [place] [address] Original Ordering Provider: DELMY HDEZ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 Drew Godoy MD #### FLDCT #### [facility] [address] [place] [address] Rural Mail Carrier: Drew oGdoy MD WBC (Bld) [#/Vol] 9.96 10*3/uL [facility] Comment on above: Performed By: #### F LCRYS #### [facility] [address] [place] [address] Rural Mail Carrier: Krish Abdi MD [facility] [address] [place] [address] Rural Mail Carrier: Drew Godoy MD #### FLDCT #### [facility] [address] [place] [address] Rural Mail Carrier: Drew Godoy MD Appearance (U) [facility] Comment on above: Performed By: #### F LCRYS #### [facility] [address] [place] [address] Rural Mail Carrier: Krish Abdi MD [facility] [address] [place] [address] Rural Mail Carrier: Drew Godoy MD #### FLDCT #### [facility] [address] [place] [address] Rural Mail Carrier: Drew Godoy MD Color (U) Pale Yellow [facility] Comment on above: Performed By: #### F LCRYS #### [facility] [address] [place] [address] Rural Mail Carrier: Krish Abdi MD [facility] [address] [place] [address] Rural Mail Carrier: Drew Godoy MD #### FLDCT #### [facility] [address] [place] [address] Rural Mail Carrier: Drew Godoy MD Type of Specimen .FLUID [facility] Comment on above: Performed By: #### F LCRYS #### [facility] [address] [place] [address] Rural Mail Carrier: Krish Abdi MD [facility] [address] [place] [address] Rural Mail Carrier: Drew Godoy MD #### FLDCT #### [facility] [address] [place] [address] Rural Mail Carrier: Drew Godoy MD CBC AUTO DIFFon 06-28-2022 BASO # 0.0 103/ul Normal 0.0-0.1 [facility] Comment on above: Performed By: #### C BC #### [facility] [address] [place] [address] Dr. Nilay Gibbs Basophils/100 WBC (Bld) 0.2 % Normal 0.2-2.0 [facility] Comment on above: Performed By: #### C BC #### [facility] [address] [place] [address] Dr. Nilay Gibbs EO # 0.0 103/ul Normal 0.0-0.7 [facility] Comment on above: Performed By: #### C BC #### [facility] [address] [place] [address] Dr. Nilay Gibbs Eosinophils/100 WBC (Bld) 0.3 % Critically low 0.9-7.0 [facility] Comment on above: Performed By: #### C BC #### [facility] [address] [place] [address] Dr. Nilay Gibbs Erythrocyte distribution width (RBC) [Ratio] 13.9 % Normal 11.0-15.0 [facility] Comment on above: Performed By: #### C BC #### [facility] [address] [place] [address] Dr. Nilay Gibbs Hematocrit (Bld) [Volume fraction] 39.8 % Critically low 42.0-54.0 [facility] Comment on above: Performed By: #### C BC #### [facility] [address] [place] [address] Dr. Nilay Gibbs Hemoglobin (Bld) [Mass/Vol] 13.2 g/dL Critically low 14.0-18.0 [facility] Comment on above: Performed By: #### C BC #### [facility] [address] [place] [address] Dr. Nilay Gibbs IG # 0.04 10e3/ul Critically high 0.00-0.03 [facility] Comment on above: Performed By: #### C BC #### [facility] [address] [place] [address] Dr. Nilay Gibbs IG % 0.4 % Normal 0.0-0.5 [facility] Comment on above: Performed By: #### C BC #### [facility] [address] [place] [address] Dr. Nilay Gibbs LYMPH # 1.8 103/ul Normal 1.2-3.8 [facility] Comment on above: Performed By: #### C BC #### [facility] [address] [place] [address] Dr. Nilay Gibbs Lymphocytes/100 WBC (Bld) 17.5 % Critically low 20.5-60.0 [facility] Comment on above: Performed By: #### C BC #### [facility] [address] [place] [address] Dr. Nilay Gibbs MANUAL DIFF REQ NO Normal [facility] Comment on above: Performed By: #### C BC #### [facility] [address] [place] [address] Dr. Nilay Gibbs MCH (RBC) [Entitic mass] 29.3 pg Normal 25.9-34.0 [facility] Comment on above: Performed By: #### C BC #### [facility] [address] [place] [address] Dr. Nilay Gibbs MCHC (RBC) [Mass/Vol] 33.2 g/dL Normal 29.9-35.2 [facility] Comment on above: Performed By: #### C BC #### [facility] [address] [place] [address] Dr. Nilay Gibbs MCV (RBC) [Entitic vol] 88.4 fL Normal 80.0-94.0 [facility] Comment on above: Performed By: #### C BC #### [facility] [address] [place] [address] Dr. Nilay Gibbs MONO # 0.9 103/ul Critically high 0.3-0.8 [facility] Comment on above: Performed By: #### C BC #### [facility] [address] [place] [address] Dr. Nilay Gibbs Monocytes/100 WBC (Bld) 9.4 % Normal 1.7-12.0 [facility] Comment on above: Performed By: #### C BC #### [facility] [address] [place] [address] Dr. Nilay Gibbs NEUT # 7.2 103/ul Critically high 1.4-6.5 [facility] Comment on above: Performed By: #### C BC #### [facility] [address] [place] [address] Dr. Nilay Gibbs Neutrophils/100 WBC (Bld) 72.2 % Normal 43.0-75.0 [facility] Comment on above: Performed By: #### C BC #### [facility] [address] [place] [address] Dr. Nilay Gibbs Platelet mean volume (Bld) [Entitic vol] 9.6 fL Normal 9.5-13.5 [facility] Comment on above: Performed By: #### C BC #### [facility] [address] [place] [address] Dr. Nilay Gibbs PLT 356 103/ul Normal 150-450 [facility] Comment on above: Performed By: #### C BC #### [facility] [address] [place] [address] Dr. Nilay Gibbs RBC 4.50 106/ul Critically low 4.70-6.10 [facility] Comment on above: Performed By: #### C BC #### [facility] [address] [place] [address] Dr. Nilay Gibbs WBC 10.0 103/ul Normal 4.0-11.0 [facility] Comment on above: Performed By: #### C BC #### [facility] [address] [place] [address] Dr. Nilay Gibbs PROF CHEM 8 (BAS METB)on Anion gap [Moles/Vol] 12.4 mmol/L Normal [facility] Comment on above: Performed By: #### A MM #### [facility] [address] [place] [address] Dr. Nilay Gibbs Calcium [Mass/Vol] 9.4 mg/dL Normal 8.5-10.1 [facility] Comment on above: Performed By: #### A MM #### [facility] [address] [place] [address] Dr. Nilay Gibbs Chloride [Moles/Vol] 105 mmol/L Normal 98-107 [facility] Comment on above: Performed By: #### A MM #### [facility] [address] [place] [address] [address] Nilay Gibbs CO2 [Moles/Vol] 25.6 mmol/L Normal 21.0-32.0 [facility] Comment on above: Performed By: #### A MM #### [facility] [address] [place] [address] [address] Nilay Gibbs Creatinine [Mass/Vol] 1.18 mg/dL Normal 0.70-1.30 [facility] Comment on above: Performed By: #### A MM #### [facility] [address] [place] [address] Dr. Nilay Gibbs EGFR-AF TUNISIAN >60 Normal >=60 [facility] Comment on above: Performed By: #### A MM #### [facility] [address] [place] [address] Dr. Nilay Gibbs EGFR-NON AF TUNISIAN >60 Normal >=60 [facility] Comment on above: Performed By: #### A MM #### [facility] [address] [place] [address] Dr. Nilay Gibbs Glucose [Mass/Vol] 125 mg/dL Critically high 74-106 [facility] Comment on above: Performed By: #### A MM #### [facility] [address] [place] [address] Dr. Nilay Gibbs Potassium [Moles/Vol] 4.3 mmol/L Normal 3.5-5.1 [facility] Comment on above: Performed By: #### A MM #### [facility] [address] [place] [address] [address] Nilay Gibbs Sodium [Moles/Vol] 139 mmol/L Normal 136-145 [facility] Comment on above: Performed By: #### A MM #### [facility] [address] [place] [address] Dr. Nilay Gibbs Urea nitrogen [Mass/Vol] 15.0 mg/dL Normal 7.0-18.0 [facility] Comment on above: Performed By: #### A MM #### [facility] [address] [place] [address] [address] Nilay Gibbs Urea nitrogen/Creatinine [Mass ratio] 12.7 mg/mg Normal [facility] Comment on above: Performed By: #### A MM #### [facility] [address] [place] [address] Dr. Nilay Gibbs CBC AUTO DIFFon 06-20-2022 BASO # 0.0 103/ul Normal 0.0-0.1 [facility] Comment on above: Performed By: #### A MM #### [facility] [address] [place] [address] Dr. Nilay Gibbs Basophils/100 WBC (Bld) 0.2 % Normal 0.2-2.0 [facility] Comment on above: Performed By: #### A MM #### [facility] [address] [place] [address] Dr. Nilay Gibbs EO # 0.0 103/ul Normal 0.0-0.7 [facility] Comment on above: Performed By: #### A MM #### [facility] [address] [place] [address] Dr. Nilay Gibbs Eosinophils/100 WBC (Bld) 0.3 % Critically low 0.9-7.0 [facility] Comment on above: Performed By: #### A MM #### [facility] [address] [place] [address] Dr. Nilay Gibbs Erythrocyte distribution width (RBC) [Ratio] 14.3 % Normal 11.0-15.0 [facility] Comment on above: Performed By: #### A MM #### [facility] [address] [place] [address] Dr. Nilay Gibbs Hematocrit (Bld) [Volume fraction] 39.3 % Critically low 42.0-54.0 [facility] Comment on above: Performed By: #### A MM #### [facility] [address] [place] [address] Dr. Nilay Gibbs Hemoglobin (Bld) [Mass/Vol] 13.1 g/dL Critically low 14.0-18.0 [facility] Comment on above: Performed By: #### A MM #### [facility] [address] [place] [address] Dr. Nilay Gibbs IG # 0.03 10e3/ul Normal 0.00-0.03 [facility] Comment on above: Performed By: #### A MM #### [facility] [address] [place] [address] Dr. Nilay Gibbs IG % 0.3 % Normal 0.0-0.5 [facility] Comment on above: Performed By: #### A MM #### [facility] [address] [place] [address] Dr. Nilay Gibbs LYMPH # 1.7 103/ul Normal 1.2-3.8 [facility] Comment on above: Performed By: #### A MM #### [facility] [address] [place] [address] Dr. Nilay Gibbs Lymphocytes/100 WBC (Bld) 14.5 % Critically low 20.5-60.0 [facility] Comment on above: Performed By: #### A MM #### [facility] [address] [place] [address] Dr. Nilay Gibbs MANUAL DIFF REQ NO Normal [facility] Comment on above: Performed By: #### A MM #### [facility] [address] [place] [address] Dr. Nilay Gibbs MCH (RBC) [Entitic mass] 29.2 pg Normal 25.9-34.0 [facility] Comment on above: Performed By: #### A MM #### [facility] [address] [place] [address] Dr. Nilay Gibbs MCHC (RBC) [Mass/Vol] 33.3 g/dL Normal 29.9-35.2 [facility] Comment on above: Performed By: #### A MM #### [facility] [address] [place] [address] Dr. Nilay Gibbs MCV (RBC) [Entitic vol] 87.5 fL Normal 80.0-94.0 [facility] Comment on above: Performed By: #### A MM #### [facility] [address] [place] [address] [address] Nilay Gibbs MONO # 1.3 103/ul Critically high 0.3-0.8 [facility] Comment on above: Performed By: #### A MM #### [facility] [address] [place] [address] [address] Nilay Gibbs Monocytes/100 WBC (Bld) 10.9 % Normal 1.7-12.0 [facility] Comment on above: Performed By: #### A MM #### [facility] [address] [place] [address] [address] Nilay Gibbs NEUT # 8.7 103/ul Critically high 1.4-6.5 [facility] Comment on above: Performed By: #### A MM #### [facility] [address] [place] [address] Dr. Nilay Gibbs Neutrophils/100 WBC (Bld) 73.8 % Normal 43.0-75.0 [facility] Comment on above: Performed By: #### A MM #### [facility] [address] [place] [address] [address] Nilay Gibbs Platelet mean volume (Bld) [Entitic vol] 10.9 fL Normal 9.5-13.5 [facility] Comment on above: Performed By: #### A MM #### [facility] [address] [place] [address] [address] Nilay Gibbs PLT 171 103/ul Normal 150-450 [facility] Comment on above: Performed By: #### A MM #### [facility] [address] [place] [address] [address] Nilay Gibbs RBC 4.49 106/ul Critically low 4.70-6.10 [facility] Comment on above: Performed By: #### A MM #### [facility] [address] [place] [address] [address] Nilay Gibbs WBC 11.7 103/ul Critically high 4.0-11.0 [facility] Comment on above: Performed By: #### A MM #### [facility] [address] [place] [address] Dr. Nilay Gibbs CRPon 06-20-2022 CRP 25.4 mg/dL Critically high <=1.0 [facility] Comment on above: Performed By: #### C RP, CMP #### [facility] [address] [place] [address] Dr. Nilay Gibbs CULTURE BLOODon 06-20-2022 Microscopic examination of blood, culture Culture Observations: NO GROWTH AT 5 DAYS. Normal [facility] Comment on above: Performed By: #### C MP #### [facility] [address] [place] [address] Dr. Nilay Gibbs Microscopic examination of blood, culture Culture Observations: NO GROWTH AT 5 DAYS. [facility] Comment on above: Performed By: #### C MP #### [facility] [address] [place] [address] Dr. Nilay Gibbs LACTATE/LACTIC ACIDon 2022 Lactate [Moles/Vol] 0.7 mmol/L Normal 0.4-2.0 [facility] Comment on above: Performed By: #### A MM #### [facility] [address] [place] [address] Dr. Nilay Gibbs PROF 14(COMP METB)on 023 Albumin [Mass/Vol] 3.8 g/dL Normal 3.4-5.0 [facility] Comment on above: Performed By: #### C RP, CMP #### [facility] [address] [place] [address] Dr. Nilay Gibbs Albumin/Globulin [Mass ratio] 1.1 {ratio} [facility] Comment on above: Performed By: #### C RP, CMP #### [facility] [address] [place] [address] Dr. Nilay Gibbs ALP [Catalytic activity/Vol] 85 U/L Normal 46-116 [facility] Comment on above: Performed By: #### C RP, CMP #### [facility] [address] [place] [address] Dr. Nilay Gibbs ALT [Catalytic activity/Vol] 29 U/L Normal 16-63 [facility] Comment on above: Performed By: #### C RP, CMP #### [facility] [address] [place] [address] Dr. Nilay Gibbs Anion gap [Moles/Vol] 15.2 mmol/L Normal [facility] Comment on above: Performed By: #### C RP, CMP #### [facility] [address] [place] [address] Dr. Nilay Gibbs AST [Catalytic activity/Vol] 20 U/L Normal 15-37 [facility] Comment on above: Performed By: #### C RP, CMP #### [facility] [address] [place] [address] Dr. Nilay Gibbs Bilirubin [Mass/Vol] 1.1 mg/dL Critically high 0.2-1.0 [facility] Comment on above: Performed By: #### C RP, CMP #### [facility] [address] [place] [address] Dr. Nilay Gibbs Calcium [Mass/Vol] 9.4 mg/dL Normal 8.5-10.1 [facility] Comment on above: Performed By: #### C RP, CMP #### [facility] [address] [place] [address] Dr. Nilay Gibbs Chloride [Moles/Vol] 99 mmol/L Normal 98-107 [facility] Comment on above: Performed By: #### C RP, CMP #### [facility] [address] [place] [address] Dr. Nilay Gibbs CO2 [Moles/Vol] 25.7 mmol/L Normal 21.0-32.0 [facility] Comment on above: Performed By: #### C RP, CMP #### [facility] [address] [place] [address] Dr. Nilay Gibbs Creatinine [Mass/Vol] 1.32 mg/dL Critically high 0.70-1.30 [facility] Comment on above: Performed By: #### C RP, CMP #### [facility] [address] [place] [address] Dr. Nilay Gibbs EGFR-AF TUNISIAN >60 Normal >=60 [facility] Comment on above: Performed By: #### C RP, CMP #### [facility] [address] [place] [address] Dr. Nilay Gibbs EGFR-NON AF TUNISIAN >60 Normal >=60 [facility] Comment on above: Performed By: #### C RP, CMP #### [facility] [address] [address] [address] Nilay Gibbs Globulin (S) [Mass/Vol] 3.6 g/dL Normal [facility] Comment on above: Performed By: #### C RP, CMP #### [facility] [address] [address] [address] Nilay Gibbs Glucose [Mass/Vol] 106 mg/dL Normal 74-106 [facility] Comment on above: Performed By: #### C RP, CMP #### [facility] [address] [place] [address] Dr. Nilay Gibbs Potassium [Moles/Vol] 3.9 mmol/L Normal 3.5-5.1 [facility] Comment on above: Performed By: #### C RP, CMP #### [facility] [address] [place] [address] Dr. Nilay Gibbs Protein [Mass/Vol] 7.4 g/dL Normal 6.4-8.2 [facility] Comment on above: Performed By: #### C RP, CMP #### [facility] [address] [place] [address] Dr. Nilay Gibbs Sodium [Moles/Vol] 136 mmol/L Normal 136-145 [facility] Comment on above: Performed By: #### C RP, CMP #### [facility] [address] [address] [address] Nilay Gibbs Urea nitrogen [Mass/Vol] 10.0 mg/dL Normal 7.0-18.0 [facility] Comment on above: Performed By: #### C RP, CMP #### [facility] [address] [address] [address] Nilay Gibbs Urea nitrogen/Creatinine [Mass ratio] 7.6 mg/mg Normal [facility] Comment on above: Performed By: #### C RP, CMP #### [facility] [address] [address] [address] Nilay Gibbs [facility] 46 mm/hr Critically high <=15 [facility] Comment on above: Performed By: #### S EDR #### [facility] [address] [address] [address] Nilay Gibbs Covid-19 PCR ([facility])on SARS-CoV-2 (COVID-19) RNA TALHA+probe Ql (Unsp spec) Not detected Normal NOT DETECTED [facility] Comment on above: Result Comment: When diagnostic [...] for this test is supported by the [employer] of [employer] and Human Service's declaration that [...] used). Performed By: #### A MM #### [facility] [address] [place], [place] [id number] Dr. Nilay Gibbs INFLUENZA A AND B AGon 01-31 INFLUANEGH SEE BELOW Normal [facility] Comment on above: Result Comment: Nega tive for Flu A protein angiten. Infection due to Flu A cannot be ruled out. Flu A angiten in the sample may be below the detection limit of the test. Performed By: #### A MM #### [facility] [address] [address] [address] Nilay Gibbs INFLUBNEGH SEE BELOW Normal [facility] Comment on above: Result Comment: Nega tive for Flu B protein antigen. Infection due to Flu B cannot be ruled out. Flu B antigen in the sample may be below the detection limit of the test. Performed By: #### A MM #### [facility] [address] [address] [address] Nilay Gibbs INFLUENZA A AG Negative Normal NEGATIVE SEE COMMENT [facility] Comment on above: Performed By: #### A MM #### [facility] [address] [address] [address] Nilay Gibbs INFLUENZA B AG Negative Normal NEGATIVE SEE COMMENT [facility] Comment on above: Performed By: #### A MM #### [facility] [address] [address] [address] Nilay Gibbs INTERNAL CONTROLS Within Normal Limits Normal Wi thin Normal Limits [facility] Comment on above: Performed By: #### A MM #### [facility] [address] [address] [address] Nilay Gibbs Cholesterol [Mass/volume] in Serum or PlasmaOrdered By: Adam Young on 12-08-2021 Cholesterol [Mass/Vol] 205 mg/dL 140-200 [facility] Comment on above: Chol less than 200 m g/dl low riskChol 201-239 mg/dl borderline riskChol 240 mg/dl and greater high risk Cholesterol in LDL Calc [Mas s/Vol]Ordered By: Adam Young on 12-08-2021 Cholesterol in LDL [Mass/Vol] 120 mg/dL 0-100 [facility] Comment on above: LDL ATP III CLASSIFI CATIONLDL less than 100 mg/dL OptimalLDL 100-129 mg/dL Near or above optimalLDL 130-159 mg/dL Borderline highLDL 160-189 mg/dL HighLDL greater than 189 mg/dL Very high Cholesterol in VLDL Calc [Ma ss/Vol]Ordered By: Adam Young on 12-08-2021 Cholesterol in VLDL [Mass/Vol] 37 mg/dL [facility] No Panel InformationOrdered By: Adam Young on 12-08-2021 25-Hydroxy Vitamin D Total 50.6 ng/mL 30-100 [facility] Comment on above: VITAMIN D [...] Cholesterol in HDL [Mass/Vol] 47 mg/dL 29-71 [facility] Comment on above: HDL CHOL ATP-III CLA SSIFICATION Cardiovascular RiskHDL > or equal to 60 mg/dL LOWHDL < 40 mg/dL HIGH Serum or plasma total choles terol/high density lipoprotein (HDL) cholesterol mass ratOrdered By: Adam Young on 12-08-2021 Cholesterol.total/Ch olesterol in HDL [Mass ratio] 4.4 {ratio} <5.0 [facility] TSH DL <= 0.005 mIU/L QnOrde red By: Adam Young on 12-08-2021 TSH Qn 0.75 m[IU]/L 0.45-5.33 [facility] Triglyceride [Mass/volume] i n Serum or PlasmaOrdered By: Adam Young on 12-08-2021 Triglyceride [Mass/Vol] 188 mg/dL 35-149 [facility] Comment on above: TRIG ATP III CLASSIF ICATIONTRIG less than 150 mg/dL NormalTRIG 150-199 mg/dL Borderline highTRIG 200-500 mg/dL High TRIG greater than 500 mg/dL Very highStandard traceable to the Center for Disease Conrtrol and Prevention (CDC) test method. Covid-19 PCR ([facility])on SARS-CoV-2 (COVID-19) RNA TALHA+probe Ql (Unsp spec) Not detected Normal NOT DETECTED [facility] Comment on above: Result Comment: When diagnostic [...] for this test is supported by the [employer] of [employer] and Human Service's declaration that [...] used). Performed By: #### C MP #### [facility] [address] [place] [address] Dr. Nilay Gibbs ETHANOL (BLD ALC)on 12-08-19 Ethanol [Mass/Vol] 288 mg/dL Normal [facility] Comment on above: Performed By: #### C MP #### [facility] [address] [place] [address] Dr. Nilay Gibbs ALC NOTE NOTE: 80 mg/dl is th e legal limit for a blood alcohol level Normal [facility] Comment on above: Performed By: #### C MP #### [facility] [address] [place] [address] Dr. Nilay Gibbs Performed By: #### A MM #### [facility] [address] [place] [address] Dr. Nilay Gibbs Ethanol [Mass/Vol] 130 mg/dL Normal [facility] Comment on above: Performed By: #### A MM #### [facility] [address] [place] [address] Dr. Nilay Gibbs Ethanol [Mass/Vol] 196 mg/dL Normal [facility] Comment on above: Performed By: #### A MM #### [facility] [address] [place] [address] Dr. Nilay Gibbs ACETAMINOPHENon 12-06-2021 Acetaminophen [Mass/Vol] ug/mL Critically low 10.0-30.0 [facility] Comment on above: Performed By: #### A CET #### [facility] [address] [address] [address] Nilay Gibbs AMMONIAon 12-06-2021 Ammonia (P) [Moles/Vol] 22 umol/L Normal 11-32 [facility] Comment on above: Performed By: #### A MM #### [facility] [address] [place] [address] Dr. Nilay Gibbs CBC AUTO DIFFon 12-06-2021 BASO # 0.0 103/ul Normal 0.0-0.1 [facility] Comment on above: Performed By: #### A MM #### [facility] [address] [place] [address] Dr. Nilay Gibbs Basophils/100 WBC (Bld) 0.5 % Normal 0.2-2.0 [facility] Comment on above: Performed By: #### A MM #### [facility] [address] [place] [address] Dr. Nilay Gibbs EO # 0.1 103/ul Normal 0.0-0.7 [facility] Comment on above: Performed By: #### A MM #### [facility] [address] [place] [address] Dr. Nilay Gibbs Eosinophils/100 WBC (Bld) 1.0 % Normal 0.9-7.0 [facility] Comment on above: Performed By: #### A MM #### [facility] [address] [place] [address] Dr. Nilay Gibbs Erythrocyte distribution width (RBC) [Ratio] 12.9 % Normal 11.0-15.0 [facility] Comment on above: Performed By: #### A MM #### [facility] [address] [place] [address] Dr. Nilay Gibbs Hematocrit (Bld) [Volume fraction] 40.5 % Critically low 42.0-54.0 [facility] Comment on above: Performed By: #### A MM #### [facility] [address] [place] [address] Dr. Nilay Gibbs Hemoglobin (Bld) [Mass/Vol] 13.9 g/dL Critically low 14.0-18.0 [facility] Comment on above: Performed By: #### A MM #### [facility] [address] [place] [address] Dr. Nilay Gibbs IG # 0.02 10e3/ul Normal 0.00-0.03 [facility] Comment on above: Performed By: #### A MM #### [facility] [address] [place] [address] Dr. Nilay Gibbs IG % 0.3 % Normal 0.0-0.5 [facility] Comment on above: Performed By: #### A MM #### [facility] [address] [place] [address] Dr. Nilay Gibbs LYMPH # 2.7 103/ul Normal 1.2-3.8 [facility] Comment on above: Performed By: #### A MM #### [facility] [address] [place] [address] Dr. Nilay Gibbs Lymphocytes/100 WBC (Bld) 45.2 % Normal 20.5-60.0 [facility] Comment on above: Performed By: #### A MM #### [facility] [address] [place] [address] Dr. Nilay Gibbs MANUAL DIFF REQ NO Normal [facility] Comment on above: Performed By: #### A MM #### [facility] [address] [place] [address] Dr. Nilay Gibbs MCH (RBC) [Entitic mass] 29.8 pg Normal 25.9-34.0 [facility] Comment on above: Performed By: #### A MM #### [facility] [address] [place] [address] Dr. Nilay Gibbs MCHC (RBC) [Mass/Vol] 34.3 g/dL Normal 29.9-35.2 [facility] Comment on above: Performed By: #### A MM #### [facility] [address] [place] [address] Dr. Nilay Gibbs MCV (RBC) [Entitic vol] 86.9 fL Normal 80.0-94.0 [facility] Comment on above: Performed By: #### A MM #### [facility] [address] [address] [address] Nilay Gibbs MONO # 0.4 103/ul Normal 0.3-0.8 [facility] Comment on above: Performed By: #### A MM #### [facility] [address] [address] [address] Nilay Gibbs Monocytes/100 WBC (Bld) 6.3 % Normal 1.7-12.0 [facility] Comment on above: Performed By: #### A MM #### [facility] [address] [place] [address] Dr. Nilay Gibbs NEUT # 2.7 103/ul Normal 1.4-6.5 [facility] Comment on above: Performed By: #### A MM #### [facility] [address] [place] [address] Dr. Nilay Gibbs Neutrophils/100 WBC (Bld) 46.7 % Normal 43.0-75.0 [facility] Comment on above: Performed By: #### A MM #### [facility] [address] [place] [address] Dr. Nilay Gibbs Platelet mean volume (Bld) [Entitic vol] 10.4 fL Normal 9.5-13.5 [facility] Comment on above: Performed By: #### A MM #### [facility] [address] [place] [address] Dr. Nilay Gibbs PLT 237 103/ul Normal 150-450 [facility] Comment on above: Performed By: #### A MM #### [facility] [address] [place] [address] Dr. Nilay Gibbs RBC 4.66 106/ul Critically low 4.70-6.10 [facility] Comment on above: Performed By: #### A MM #### [facility] [address] [place] [address] Dr. Nilay Gibbs WBC 5.9 103/ul Normal 4.0-11.0 [facility] Comment on above: Performed By: #### A MM #### [facility] [address] [place] [address] Dr. Nilay Gibbs DRUG SCREEN RAPID (URINE)on 12-06-2021 AMP Negative Normal NEGATIVE [facility] Comment on above: Performed By: #### D RUGRPD #### [facility] [address] [place] [address] Dr. Nilay Gibbs BAR Negative Normal NEGATIVE [facility] Comment on above: Performed By: #### D RUGRPD #### [facility] [address] [place] [address] Dr. Nilay Gibbs BUP Negative Normal NEGATIVE [facility] Comment on above: Performed By: #### D RUGRPD #### [facility] [address] [place] [address] Dr. Nilay Gibbs BZO Positive Abnormal NEGATIVE [facility] Comment on above: Performed By: #### D RUGRPD #### [facility] [address] [place] [address] Dr. Nilay Gibbs ROQUE Negative Normal NEGATIVE [facility] Comment on above: Performed By: #### D RUGRPD #### [facility] [address] [place] [address] Dr. Nilay iGbbs CUT-OFFS SEE BELOW Normal [facility] Comment on above: Result Comment: AMP (Amphetamine): 500ng/mL, BAR (Barbituates): 200 ng/mL, BZO (Benzodiazepines): 150 ng/mL, BUP (Buprenorphine): 10 ng/mL, ROQUE (Cocaine): 150 ng/mL, mAMP (Methamphetamine): 500 ng/mL, MTD (Methadone): 200 ng/mL, OPI (Opiates): 100 ng/mL, OXY (Oxycodone): 100 ng/mL, PCP (Phencyclidine): 25 ng/mL, PPX (Propoxyphene): 300 ng/mL, THC (Cannabinoids): 50 ng/mL, TCA (Trycyclic Antidepressants): 300 ng/mL Performed By: #### D RUGRPD #### [facility] [address] [place] [address] Dr. Nilay Gibbs DRUG CUT HEADER DRUG CLASS TEST SYST EM CUT-OFF CONCENTRATIONS ARE FOLLOWS: Normal [facility] Comment on above: Performed By: #### D RUGRPD #### [facility] [address] [place] [address] Dr. Nilay Gibbs mAMP Negative Normal NEGATIVE [facility] Comment on above: Performed By: #### D RUGRPD #### [facility] [address] [address] [address] Nilay Gibbs MTD Negative Normal NEGATIVE [facility] Comment on above: Performed By: #### D RUGRPD #### [facility] [address] [address] [address] Nilay Gibbs OPI Negative Normal NEGATIVE [facility] Comment on above: Performed By: #### D RUGRPD #### [facility] [address] [place] [address] Dr. Nilay Gibbs OXY Negative Normal NEGATIVE [facility] Comment on above: Performed By: #### D RUGRPD #### [facility] [address] [place] [address] Dr. Nilay Gibbs PCP Negative Normal NEGATIVE [facility] Comment on above: Performed By: #### D RUGRPD #### [facility] [address] [place] [address] Dr. Nilay Gibbs PPX Negative Normal NEGATIVE [facility] Comment on above: Performed By: #### D RUGRPD #### [facility] [address] [place] [address] Dr. Nilay Gibbs TCA Negative Normal NEGATIVE [facility] Comment on above: Performed By: #### D RUGRPD #### [facility] [address] [place] [address] Dr. Nilay Gibbs THC Negative Normal NEGATIVE [facility] Comment on above: Performed By: #### D RUGRPD #### [facility] [address] [place] [address] Dr. Nilay Gibbs ETHANOL (BLD ALC)on 12-07-19 ALC NOTE NOTE: 80 mg/dl is th e legal limit for a blood alcohol level Normal [facility] Comment on above: Performed By: #### C MP #### [facility] [address] [place] [address] Dr. Nilay Gibbs Ethanol [Mass/Vol] 336 mg/dL Normal [facility] Comment on above: Performed By: #### C MP #### [facility] [address] [place] [address] Dr. Nilay Gibbs PROF 14(COMP METB)on 022 Albumin [Mass/Vol] 4.2 g/dL Normal 3.4-5.0 [facility] Comment on above: Performed By: #### C MP #### [facility] [address] [place] [address] Dr. Nilay Gibbs Albumin/Globulin [Mass ratio] 1.3 {ratio} Normal [facility] Comment on above: Performed By: #### C MP #### [facility] [address] [place] [address] Dr. Nilay Gibbs ALP [Catalytic activity/Vol] 104 U/L Normal 46-116 [facility] Comment on above: Performed By: #### C MP #### [facility] [address] [place] [address] Dr. Nilay Gibbs ALT [Catalytic activity/Vol] 41 U/L Normal 16-63 [facility] Comment on above: Performed By: #### C MP #### [facility] [address] [place] [address] Dr. Nilay Gibbs Anion gap [Moles/Vol] 11.5 mmol/L Normal [facility] Comment on above: Performed By: #### C MP #### [facility] [address] [place] [address] Dr. Nilay Gibbs AST [Catalytic activity/Vol] 37 U/L Normal 15-37 [facility] Comment on above: Performed By: #### C MP #### [facility] [address] [place] [address] Dr. Nilay Gibbs Bilirubin [Mass/Vol] 0.2 mg/dL Normal 0.2-1.0 [facility] Comment on above: Performed By: #### C MP #### [facility] [address] [place] [address] Dr. Nilay Gibbs Calcium [Mass/Vol] 8.6 mg/dL Normal 8.5-10.1 [facility] Comment on above: Performed By: #### C MP #### [facility] [address] [address] [address] Nilay Gibbs Chloride [Moles/Vol] 97 mmol/L Critically low 98-107 [facility] Comment on above: Performed By: #### C MP #### [facility] [address] [address] [address] Nilay Gibbs CO2 [Moles/Vol] 26.0 mmol/L Normal 21.0-32.0 [facility] Comment on above: Performed By: #### C MP #### [facility] [address] [address] [address] Nilay Gibbs Creatinine [Mass/Vol] 1.47 mg/dL Critically high 0.70-1.30 [facility] Comment on above: Performed By: #### C MP #### [facility] [address] [place] [address] Dr. Nilay Gibbs EGFR-AF TUNISIAN >60 Normal >=60 [facility] Comment on above: Performed By: #### C MP #### [facility] [address] [address] [address] Nilay Gibbs EGFR-NON AF TUNISIAN 56 mL/min/1.73m2 Critically low >=60 [facility] Comment on above: Performed By: #### C MP #### [facility] [address] [address] [address] Nilay Gibbs Globulin (S) [Mass/Vol] 3.2 g/dL Normal [facility] Comment on above: Performed By: #### C MP #### [facility] [address] [address] [address] Nilay Gibbs Glucose [Mass/Vol] 117 mg/dL Critically high 74-106 [facility] Comment on above: Performed By: #### C MP #### [facility] [address] [address] [address] Nilay Gibbs Potassium [Moles/Vol] 3.5 mmol/L Normal 3.5-5.1 [facility] Comment on above: Performed By: #### C MP #### [facility] [address] [address] [address] Nilay Gibbs Protein [Mass/Vol] 7.4 g/dL Normal 6.4-8.2 [facility] Comment on above: Performed By: #### C MP #### [facility] [address] [address] [address] Nilay Gibbs Sodium [Moles/Vol] 131 mmol/L Critically low 136-145 [facility] Comment on above: Performed By: #### C MP #### [facility] [address] [address] [address] Nilay Gibbs Urea nitrogen [Mass/Vol] 14.0 mg/dL Normal 7.0-18.0 [facility] Comment on above: Performed By: #### C MP #### [facility] [address] [address] [address] Nilay Gibbs Urea nitrogen/Creatinine [Mass ratio] 9.5 mg/mg Normal [facility] Comment on above: Performed By: #### C MP #### [facility] [address] [address] [address] Nilay Gibbs SALICYLATEon 12-06-2021 SALICYLATE <2.8 Normal <=19.9 [facility] Comment on above: Performed By: #### A MM #### [facility] [address] [address] [address] Nilay Gibbs MRI Shoulder w/o Lefton [...] as discussed. Report reported and signed by Stehpen Ware on 11/11/2021 0955 Normal [facility] Activated partial thrombopla stin time (aPTT) in platelet poor plasma by coagulation aOrdered By: Kristal Goldberg on 09-27-2021 aPTT Coag (PPP) [Time] 34.7 s 25.1-36.5 [facility] Albumin [Mass/volume] in Ser um or PlasmaOrdered By: Kristal Goldberg on 09-27-2021 Albumin [Mass/Vol] 4.1 g/dL 3.2-5.5 [facility] Basophils Auto (Bld) [#/Vol] Ordered By: Kristal Goldberg on 09-27-2021 Basophils (Bld) [#/Vol] 0.0 10*3/uL 0.0-0.2 [facility] Basophils/100 WBC Auto (Bld) Ordered By: Kristal Goldberg on 09-27-2021 Basophils/100 WBC (Bld) 0.3 % . [facility] Bilirubin Auto test strip Ql (U)Ordered By: Kristal Goldberg on 09-27-2021 Bilirubin Ql (U) Negative Negative [facility] Blood hemoglobin measurement (mass/volume)Ordered By: Kristal Goldberg on 09-27-2021 Hemoglobin (Bld) [Mass/Vol] 13.6 g/dL 13.0-17.0 [facility] Blood leukocytes automated c ount (number/volume)Ordered By: Kristal Goldberg on 09-27-2021 WBC (Bld) [#/Vol] 5.7 10*3/uL 4.5-11.0 [facility] CBC AUTO DIFFon 09-27-2021 BASO # 0.0 103/ul Normal 0.0-0.1 [facility] Comment on above: Performed By: #### A MM #### [facility] [address] [address] [address] Nilay Gibbs Basophils/100 WBC (Bld) 0.5 % Normal 0.2-2.0 [facility] Comment on above: Performed By: #### A MM #### [facility] [address] [address] [address] Nilay Gibbs EO # 0.1 103/ul Normal 0.0-0.7 [facility] Comment on above: Performed By: #### A MM #### [facility] [address] [place] [address] Dr. Nilay Gibbs Eosinophils/100 WBC (Bld) 1.6 % Normal 0.9-7.0 [facility] Comment on above: Performed By: #### A MM #### [facility] [address] [place] [address] Dr. Nilay Gibbs Erythrocyte distribution width (RBC) [Ratio] 14.0 % Normal 11.0-15.0 [facility] Comment on above: Performed By: #### A MM #### [facility] [address] [place] [address] Dr. Nilay Gibbs Hematocrit (Bld) [Volume fraction] 40.2 % Critically low 42.0-54.0 [facility] Comment on above: Performed By: #### A MM #### [facility] [address] [place] [address] Dr. Nilay Gibbs Hemoglobin (Bld) [Mass/Vol] 13.7 g/dL Critically low 14.0-18.0 [facility] Comment on above: Performed By: #### A MM #### [facility] [address] [place] [address] Dr. Nilay Gibbs IG # 0.01 10e3/ul Normal 0.00-0.03 [facility] Comment on above: Performed By: #### A MM #### [facility] [address] [place] [address] Dr. Nilay Gibbs IG % 0.2 % Normal 0.0-0.5 [facility] Comment on above: Performed By: #### A MM #### [facility] [address] [place] [address] Dr. Nilay Gibbs LYMPH # 2.1 103/ul Normal 1.2-3.8 [facility] Comment on above: Performed By: #### A MM #### [facility] [address] [place] [address] Dr. Nilay Gibbs Lymphocytes/100 WBC (Bld) 37.1 % Normal 20.5-60.0 [facility] Comment on above: Performed By: #### A MM #### [facility] [address] [place] [address] Dr. Nilay Gibbs MANUAL DIFF REQ NO Normal [facility] Comment on above: Performed By: #### A MM #### [facility] [address] [place] [address] Dr. Nilay Gibbs MCH (RBC) [Entitic mass] 30.1 pg Normal 25.9-34.0 [facility] Comment on above: Performed By: #### A MM #### [facility] [address] [place] [address] Dr. Nilay Gibbs MCHC (RBC) [Mass/Vol] 34.1 g/dL Normal 29.9-35.2 [facility] Comment on above: Performed By: #### A MM #### [facility] [address] [place] [address] Dr. Nilay Gibbs MCV (RBC) [Entitic vol] 88.4 fL Normal 80.0-94.0 [facility] Comment on above: Performed By: #### A MM #### [facility] [address] [place] [address] Dr. Nilay Gibbs MONO # 0.4 103/ul Normal 0.3-0.8 [facility] Comment on above: Performed By: #### A MM #### [facility] [address] [place] [address] Dr. Nilay Gibbs Monocytes/100 WBC (Bld) 7.2 % Normal 1.7-12.0 [facility] Comment on above: Performed By: #### A MM #### [facility] [address] [place] [address] Dr. Nilay Gibbs NEUT # 3.1 103/ul Normal 1.4-6.5 [facility] Comment on above: Performed By: #### A MM #### [facility] [address] [place] [address] Dr. Nilay Gibbs Neutrophils/100 WBC (Bld) 53.4 % Normal 43.0-75.0 [facility] Comment on above: Performed By: #### A MM #### [facility] [address] [place] [address] Dr. Nilay Gibbs Platelet mean volume (Bld) [Entitic vol] 10.3 fL Normal 9.5-13.5 [facility] Comment on above: Performed By: #### A MM #### [facility] [address] [place] [address] Dr. Nilay Gibbs PLT 254 103/ul Normal 150-450 [facility] Comment on above: Performed By: #### A MM #### [facility] [address] [place] [address] Dr. Nilay Gibbs RBC 4.55 106/ul Critically low 4.70-6.10 [facility] Comment on above: Performed By: #### A MM #### [facility] [address] [place] [address] Dr. Nilay Gibbs WBC 5.7 103/ul Normal 4.0-11.0 [facility] Comment on above: Performed By: #### A MM #### [facility] [address] [place] [address] HEAD WO CONon [...] by: RUFINA MARIN Date: 2021-09-27 10:27 Normal [facility] CTA HEAD WO W CONon 09-28-19 22 [...] by: NEL KING Date: 2021-09-27 12:19 Normal [facility] CTA NECK WO W CONon 09-28-19 22 [...] by: NEL KING Date: 2021-09-27 12:06 Normal [facility] Creatine kinase [Enzymatic a ctivity/volume] in Serum or PlasmaOrdered By: Kristal Goldberg on 09-27-2021 CK [Catalytic activity/Vol] 181 U/L 22-269 [facility] Creatinine and Glomerular fi ltration rate.predicted panel (S/P/Bld)Ordered By: Kristal Goldberg on 09-27-2021 Creatinine [Mass/Vol] 1.36 mg/dL 0.64-1.27 [facility] Eosinophils Auto (Bld) [#/Vo l]Ordered By: Kristal Goldberg on 09-27-2021 Eosinophils (Bld) [#/Vol] 0.1 10*3/uL 0.0-0.45 [facility] Eosinophils/100 WBC Auto (Bl d)Ordered By: Kristal Goldberg on 09-27-2021 Eosinophils/100 WBC (Bld) 1.2 % . [facility] Erythrocyte distribution wid th Auto (RBC) [Ratio]Ordered By: Kristal Goldberg on 09-27-2021 Erythrocyte distribution width (RBC) [Ratio] 14.5 % 12.0-14.8 [facility] Estimated glomerular filtrat ion rate (GFR) non- AmericanOrdered By: Kristal Goldberg on 09-27-2021 GFR/1.73 sq M.predicted among non-blacks MDRD (S/P/Bld) [Vol rate/Area] > 60 mL/Min [facility] Globulin Calc (S) [Mass/Vol] Ordered By: Kristal Goldberg on 09-27-2021 Globulin (S) [Mass/Vol] 2.4 g/dL [facility] Hematocrit Auto (Bld) [Volum e fraction]Ordered By: Kristal Goldberg on 09-27-2021 Hematocrit (Bld) [Volume fraction] 40.8 % 38.8-50.0 [facility] Ketones Auto test strip (U) [Mass/Vol]Ordered By: Kristal Goldberg on 09-27-2021 Ketones (U) [Mass/Vol] Negative Negative [facility] - CoagulationOrde red By: Kristal Goldberg on 09-27-2021 PT Coag (PPP) [Time] 11.8 s 9.0-12.9 [facility] - Hematology and Cell countsOrdered By: Kristal Goldberg on 09-27-2021 Nucleated RBC/100 WBC (Bld) [Ratio] 0.0 % 0-0.5 [facility] Lymphocytes Auto (Bld) [#/Vo l]Ordered By: Kristal Goldberg on 09-27-2021 Lymphocytes (Bld) [#/Vol] 1.8 10*3/uL 1.00-4.8 [facility] Lymphocytes/100 WBC Auto (Bl d)Ordered By: Kristal Goldberg on 09-27-2021 Lymphocytes/100 WBC (Bld) 31.2 % . [facility] MCH Auto (RBC) [Entitic mass ]Ordered By: Kristal Goldberg on 09-27-2021 MCH (RBC) [Entitic mass] 30.1 pg 27.5-35.2 [facility] MCHC Auto (RBC) [Mass/Vol]Or dered By: Kristal Goldberg on 09-27-2021 MCHC (RBC) [Mass/Vol] 33.4 g/dL 32.5-35.6 [facility] MCV Auto (RBC) [Entitic vol] Ordered By: Kristal Goldberg on 09-27-2021 MCV (RBC) [Entitic vol] 90.3 fL 83.5-101 [facility] Monocytes Auto (Bld) [#/Vol] Ordered By: Kristal Goldberg on 09-27-2021 Monocytes (Bld) [#/Vol] 0.3 10*3/uL 0.0-0.8 [facility] Monocytes/100 WBC Auto (Bld) Ordered By: Kristal Goldberg on 09-27-2021 Monocytes/100 WBC (Bld) 6.0 % . [facility] Neutrophils Auto (Bld) [#/Vo l]Ordered By: Kristal Goldberg on 09-27-2021 Neutrophils (Bld) [#/Vol] 3.5 10*3/uL 1.8-7.7 [facility] Neutrophils/100 WBC Auto (Bl d)Ordered By: Kristal Goldberg on 09-27-2021 Neutrophils/100 WBC (Bld) 61.3 % . [facility] No Panel InformationOrdered By: Kristal Goldberg on 09-27-2021 Estimated GFR () > 60 mL/Min [facility] Comment on above: GFR estimated refere nce range: According to KDOQI guidelines, <60 ml/min/1.73m2 is sufficient to diagnose a patient with chronic kidney disease. Pharmacy Creatinine Clearance (Chem 94.06 [facility] PROF CHEM 8 (BAS METB)on Anion gap [Moles/Vol] 10.0 mmol/L Normal [facility] Comment on above: Performed By: #### C MP #### [facility] [address] [address] [address] Nilay Gibbs Calcium [Mass/Vol] 9.4 mg/dL Normal 8.5-10.1 [facility] Comment on above: Performed By: #### C MP #### [facility] [address] [address] [address] Nilay Gibbs Chloride [Moles/Vol] 103 mmol/L Normal 98-107 [facility] Comment on above: Performed By: #### C MP #### [facility] [address] [address] [address] Nilay Gibbs CO2 [Moles/Vol] 27.6 mmol/L Normal 21.0-32.0 [facility] Comment on above: Performed By: #### C MP #### [facility] [address] [place] [address] Dr. Nilay Gibbs Creatinine [Mass/Vol] 1.39 mg/dL Critically high 0.70-1.30 [facility] Comment on above: Performed By: #### C MP #### [facility] [address] [address] [address] Nilay Gibbs EGFR-AF TUNISIAN >60 Normal >=60 [facility] Comment on above: Performed By: #### C MP #### [facility] [address] [address] [address] Nilay Gibbs EGFR-NON AF TUNISIAN 60 mL/min/1.73m2 Normal >=60 [facility] Comment on above: Performed By: #### C MP #### [facility] [address] [address] [address] Nilay Gibbs Glucose [Mass/Vol] 115 mg/dL Critically high 74-106 [facility] Comment on above: Performed By: #### C MP #### [facility] [address] [address] [address] Nilay Gibbs Potassium [Moles/Vol] 3.6 mmol/L Normal 3.5-5.1 [facility] Comment on above: Performed By: #### C MP #### [facility] [address] [place] [address] Dr. Nilay Gibbs Sodium [Moles/Vol] 137 mmol/L Normal 136-145 [facility] Comment on above: Performed By: #### C MP #### [facility] [address] [place] [address] Dr. Nilay Gibbs Urea nitrogen [Mass/Vol] 17.0 mg/dL Normal 7.0-18.0 [facility] Comment on above: Performed By: #### C MP #### [facility] [address] [place] [address] Dr. Nilay Gibbs Urea nitrogen/Creatinine [Mass ratio] 12.2 mg/mg Normal [facility] Comment on above: Performed By: #### C MP #### [facility] [address] [place] [address] Dr. Nilay Gibbs PROTIMEon 09-27-2021 INR Coag (PPP) [Relative time] 0.99 {INR} Normal [facility] Comment on above: Performed By: #### P T, PTT #### [facility] [address] [place] [address] Dr. Nilay Gibbs INR GUIDELINES SEE BELOW Normal [facility] Comment on above: Result Comment: PETRONA RED INR: 2.0 - 3.0 CONDITIONS NOT LISTED BELOW 2.5 - 3.5 FOR PROSTHETIC HEART VALVE REPLACEMENT 2.5 - 3.5 RECURRENT THROMBOSIS Performed By: #### P T, PTT #### [facility] [address] [place] [address] Dr. Nilay Gibbs PT Coag (PPP) [Time] 10.7 s Normal 9.0-11.6 [facility] Comment on above: Performed By: #### P T, PTT #### [facility] [address] [place] [address] Dr. Nilay Gbibs PTTon 09-27-2021 aPTT Coag (Bld) [Time] 29.1 s Normal 22.3-36.2 [facility] Comment on above: Performed By: #### P T, PTT #### [facility] [address] [place], [place] [address] Dr. Nilay Gibbs Platelet mean volume Auto (B ld) [Entitic vol]Ordered By: Kristal Goldberg on 09-27-2021 Platelet mean volume (Bld) [Entitic vol] 8.7 fL 6.6-10.1 [facility] Platelet poor plasma interna tional normalized ratio (INR) by coagulation assay (relatOrdered By: Kristal Goldberg on 09-27-2021 INR Coag (PPP) [Relative time] 1.1 {INR} [facility] Comment on above: INR Therapeutic [...] 09-27-2021 Platelets (Bld) [#/Vol] 240 10*3/uL 150-450 [facility] Protein Auto test strip (U) [Mass/Vol]Ordered By: Kristal Goldberg on 09-27-2021 Protein (U) [Mass/Vol] Negative Negative [facility] Protein [Mass/volume] in Ser um or PlasmaOrdered By: Kristal Goldberg on 09-27-2021 Protein [Mass/Vol] 6.5 g/dL 6.1-7.9 [facility] RBC Auto (Bld) [#/Vol]Ordere d By: Kristal Goldberg on 09-27-2021 RBC (Bld) [#/Vol] 4.52 10*6/uL 3.90-5.60 [facility] Serum or plasma alanine marquez otransferase measurement without P-5'-P (enzymatic activiOrdered By: Kristal Goldberg on 09-27-2021 ALT No additional P-5'-P [Catalytic activity/Vol] 22 U/L 10-60 [facility] Serum or plasma albumin/glob ulin mass ratioOrdered By: Kristal Goldberg on 09-27-2021 Albumin/Globulin [Mass ratio] 1.7 {ratio} [facility] Serum or plasma alkaline kimi sphatase measurement (enzymatic activity/volume)Ordered By: Kristal Goldberg on 09-27-2021 ALP [Catalytic activity/Vol] 72 U/L 32-92 [facility] Serum or plasma aspartate am inotransferase measurement (enzymatic activity/volume)Ordered By: Kristal Goldberg on 09-27-2021 AST [Catalytic activity/Vol] 24 U/L 10-42 [facility] Serum or plasma calcium isabel urement (mass/volume)Ordered By: Kristal Goldberg on 09-27-2021 Calcium [Mass/Vol] 9.6 mg/dL 8.2-10.2 [facility] Serum or plasma chloride airam surement (moles/volume)Ordered By: Kristal Goldberg on 09-27-2021 Chloride [Moles/Vol] 98 mmol/L 95-114 [facility] Serum or plasma creatine kin ase MB (CKMB)/total creatine kinase (CK) ratio by calculaOrdered By: Kristal Goldberg on 09-27-2021 CK.MB Calc [Catalytic fraction] 1.7 % 0.00-2.50 [facility] Serum or plasma creatine kin ase MB measurement (mass/volume)Ordered By: Kristal Goldberg on 09-27-2021 CK.MB [Mass/Vol] 3.1 ng/mL 0.6-6.3 [facility] Serum or plasma glucose isabel urement (mass/volume)Ordered By: Kristal Goldberg on 09-27-2021 Glucose [Mass/Vol] 94 mg/dL 70-100 [facility] Comment on above: ADA recommended refe [...] on 09-27-2021 Potassium [Moles/Vol] 3.9 mmol/L 3.5-5.1 [facility] Serum or plasma sodium measu rement (moles/volume)Ordered By: Kristal Lermaalebony on 09-27-2021 Sodium [Moles/Vol] 135 mmol/L 136-146 [facility] Serum or plasma total biliru bin measurement (mass/volume)Ordered By: Kristal Goldberg on 09-27-2021 Bilirubin [Mass/Vol] 0.8 mg/dL 0.3-1.2 [facility] Serum or plasma total carbon dioxide measurement (moles/volume)Ordered By: Kristal Goldberg on 09-27-2021 CO2 [Moles/Vol] 24.8 mmol/L 22.0-30.0 [facility] Serum or plasma urea nitroge n measurement (mass/volume)Ordered By: Kristal Goldberg on 09-27-2021 Urea nitrogen [Mass/Vol] 13 mg/dL 9-23 [facility] TROPONIN, HIGH SENSITIVITYon 09-27-2021 HSTROP 4.5 pg/mL Normal 4.0-76.1 [facility] Comment on above: Result Comment: CUT- OFF POINTS HAVE BEEN ESTABLISHED BASED ON THE FOURTH UNIVERSAL DEFINITIONS OF MYOCARDIAL INFARCTION. THE UPPER REFERENCE LIMIT (URL) OF TROPONIN, DEFINED THE 99TH PERCENTILE OF cTnI DISTRIBUTION IN A REFERENCE POPULATION, HAS BEEN CONFIRMED THE DECISION THRESHOLD FOR NC DIAGNOSIS. Performed By: #### C MP #### [facility] [address] [place] [address] Dr. Nilay Gibbs Troponin I.cardiac [Mass/vol ume] in Serum or Plasma by High sensitivity methodOrdered By: Kristal Goldberg on 09-27-2021 Troponin I.cardiac High sensitivity method [Mass/Vol] < 3 pg/mL 0-20 [facility] Urine appearanceOrdered By: Kristal Goldberg on 09-27-2021 Appearance (U) Clear Clear [facility] Urine colorOrdered By: Aurora Goldberg on 09-27-2021 Color (U) Yellow Yellow [facility] Urine glucose measurement by automated test strip (mass/volume)Ordered By: Kristal Goldberg on 09-27-2021 Glucose Auto test strip (U) [Mass/Vol] Normal mg/dL Normal [facility] Urine hemoglobin detection b y automated test stripOrdered By: Kristal Goldberg on 09-27-2021 Hemoglobin Auto test strip Ql (U) Negative Negative [facility] Urine leukocyte esterase det ection by automated test stripOrdered By: Kristal Goldberg on 09-27-2021 Leukocyte esterase Auto test strip Ql (U) Negative Negative [facility] Urine nitrite detection by a utomated test stripOrdered By: Kristal Goldberg on 09-27-2021 Nitrite Auto test strip Ql (U) Negative Negative [facility] Urobilinogen Auto test strip (U) [Mass/Vol]Ordered By: Kristal Goldberg on 09-27-2021 Urobilinogen (U) [Mass/Vol] Normal mg/dL Normal [facility] pH Auto test strip (U)Ordere d By: Kristal Godlberg on 09-27-2021 pH (U) 1.005 [pH] 1.001-1.030 [facility] pH (U) 5.5 [pH] 5.0-9.0 [facility] CT LUMBAR SPINE WO CONTRASTo [...] Mike Felipe MD 07/12/18 Final result Normal [facility] CT THORACIC SPINE WO CONTRAS Ton [...] Mike Felipe MD 07/12/18 Final result Normal [facility] Vital Signs Date Time Vital Sign Value Performing Clinician Facility 04-20-2024 10:02-0500 Body height 188 cm Marina Hemmer PA Work Phone: [facility] 04-20-2024 10:02-0500 Body mass index (BMI) [Ratio] 29.99 kg/m2 Marina Hemmer PA Work Phone: [facility] 04-20-2024 10:02-0500 Body weight 105.96 kg Marina Hemmer PA Work Phone: [facility] 04-20-2024 10:02-0500 Diastolic blood pressure 116 mm[Hg] Marina Hemmer PA Work Phone: [facility] 04-20-2024 10:02-0500 Heart rate 87 /min Marina Hemmer PA Work Phone: [facility] 02-20-2025 10:02-0500 Respiratory rate 16 /min Marina Hemmer PA Work Phone: [facility] 04-20-2024 10:02-0500 SaO2% (BldA) [Mass fraction] 98 % Marina Hemmer PA Work Phone: [facility] 04-20-2024 10:02-0500 Systolic blood pressure 158 mm[Hg] Marina Hemmer PA Work Phone: [facility] 01-21-2024 08:48-0500 Body height 188 cm Marina Hemmer PA Work Phone: [facility] 01-21-2024 08:48-0500 Body mass index (BMI) [Ratio] 31.35 kg/m2 Marina Hemmer PA Work Phone: [facility] 01-21-2024 08:48-0500 Body weight 110.77 kg Marina Hemmer PA Work Phone: [facility] 01-21-2024 08:48-0500 Diastolic blood pressure 101 mm[Hg] Marina Hemmer PA Work Phone: [facility] 01-21-2024 08:48-0500 Heart rate 87 /min Marina Hemmer PA Work Phone: [facility] 01-21-2024 08:48-0500 Respiratory rate 17 /min Marina Hemmer PA Work Phone: [facility] 01-21-2024 08:48-0500 SaO2% (BldA) [Mass fraction] 98 % Marina Hemmer PA Work Phone: [facility] 01-21-2024 08:48-0500 Systolic blood pressure 158 mm[Hg] Marina Hemmer PA Work Phone: [facility] 01-04-2024 08:12-0500 Body height 188 cm Delmy Boyle MD Work Phone: [facility] 01-04-2024 08:12-0500 Body mass index (BMI) [Ratio] 30.39 kg/m2 Delmy Boyle MD Work Phone: [facility] 01-04-2024 08:12-0500 Body weight 107.4 kg Delmy Boyle MD Work Phone: [facility] 01-04-2024 08:12-0500 Diastolic blood pressure 77 mm[Hg] Delmy Boyle MD Work Phone: [facility] 01-04-2024 08:12-0500 Heart rate 84 /min Delmy Boyle MD Work Phone: [facility] 01-04-2024 08:12-0500 Respiratory rate 18 /min Delmy Boyle MD Work Phone: [facility] 01-04-2024 08:12-0500 Systolic blood pressure 110 mm[Hg] Delmy Boyle MD Work Phone: [facility] 08-22-2023 12:40-0400 Body height 190.5 cm MD Leydi Aceves Work Phone: [facility] 08-22-2023 12:40-0400 Body mass index (BMI) [Ratio] 31.6 kg/m2 MD Leydi Aceves Work Phone: [facility] 08-22-2023 12:40-0400 Body temperature 98.6 [degF] MD Leydi Aceves Work Phone: [facility] 08-22-2023 12:40-0400 Body weight 114.81 kg MD Leydi Aceves Work Phone: [facility] 08-22-2023 12:40-0400 Heart rate 84 /min MD Leydi Aceves Work Phone: [facility] 08-22-2023 12:40-0400 Respiratory rate 18 /min MD Leydi Aceves Work Phone: [facility] 08-22-2023 12:40-0400 SaO2% (BldA) [Mass fraction] 97 % MD Leydi Aceves Work Phone: [facility] 06-24-2023 14:34-0400 Body mass index [...] 71 mm[Hg] MD Leydi Aceves Work Phone: [facility] 12-10-2021 15:30-0400 Heart rate 70 /min MD Leydi Aceves Work Phone: [facility] 12-10-2021 15:30-0400 Respiratory rate 16 /min MD Leydi Aceves Work Phone: [facility] 12-10-2021 15:30-0400 SaO2% (BldA) [Mass fraction] 98 % MD Leydi Aceves Work Phone: [facility] 12-10-2021 15:30-0400 Systolic blood pressure 113 mm[Hg] MD Leydi Aceves Work Phone: [facility] 12-10-2021 07:30-0400 Body temperature 98 [degF] MD Leydi Aceves Work Phone: [facility] 12-08-2021 15:45-0400 Body height 190.5 cm MD Leydi Aceves Work Phone: [facility] 12-08-2021 08:56-0400 Body weight 99.79 kg MD Leydi Aceves Work Phone: [facility] 09-27-2021 21:38-0400 Heart rate 68 /min MD Leydi Aceves Work Phone: [facility] 09-27-2021 21:30-0400 Diastolic blood pressure 79 mm[Hg] MD Leydi Aceves Work Phone: [facility] 09-27-2021 21:30-0400 Respiratory rate 20 /min MD Leydi Aceves Work Phone: [facility] 09-27-2021 21:30-0400 SaO2% (BldA) [Mass fraction] 100 % MD Leydi Aceves Work Phone: [facility] 09-27-2021 21:30-0400 Systolic blood pressure 135 mm[Hg] MD Leydi Aceves Work Phone: [facility] 09-27-2021 18:31-0400 Body height 190.5 cm MD Leydi Aceves Work Phone: [facility] 07-30-2022 18:31-0400 Body temperature 98 [degF] MD Leydi Aceves Work Phone: [facility] 09-27-2021 18:31-0400 Body weight 99.79 kg MD Leydi Aceves Work Phone: [facility] Encounters Encounter Date Encounter Type Care Provider Facility Start: 07-26-2024 End: 07-26-2024 Refill Marina Rees PA Work Phone: [facility] Comment on above: 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) Start: 07-11-2024 End: 07-11-2024 Refill Marina Rees PA Work Phone: [facility] Comment on above: 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) Start: 07-07-2024 End: 07-07-2024 Refill Marina Rees PA Work Phone: [facility] Comment on above: 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) Start: 07-03-2024 End: 07-03-2024 Refill Marina Rees PA Work Phone: [facility] Comment on above: 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) Start: 06-28-2024 End: 06-28-2024 Refill Leydi Aceves MD Work Phone: [facility] Comment on above: 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) Start: 06-26-2024 End: 06-27-2024 Refill Marina Desaimer PA Work Phone: [facility] Comment on above: 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) Med Refill Start: 06-19-2024 End: 06-19-2024 Refill Marina Desaimer PA Work Phone: [facility] Comment on above: 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) Start: 06-12-2024 End: 06-12-2024 Refill Marina M Hemmer PA Work Phone: [facility] Comment on above: 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) Start: 06-05-2024 End: 06-05-2024 Refill Marina Rees PA Work Phone: [facility] Comment on above: 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) Start: 05-30-2024 End: 05-30-2024 Refill Leydi Aceves MD Work Phone: [facility] Comment on above: 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) Start: 05-29-2024 End: 05-29-2024 Refill Marina Rees PA Work Phone: [facility] Comment on above: 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) Start: 05-18-2024 End: 05-18-2024 Bamboo flowsheet Marina Rees PA Work Phone: [facility] Start: 05-18-2024 End: 05-18-2024 Bamboo flowsheet Marina Rees PA Work Phone: [facility] Start: 05-18-2024 End: 05-18-2024 Clinisync Result Encounter Marina Rees PA Work Phone: [facility] Unsolicited Start: 05-18-2024 End: 05-18-2024 ambulatory MARINA REES Not Available Start: 05-10-2024 End: 05-11-2024 Refill Marina Rees [...] (CMS/HCC) Start: 01-21-2024 End: 01-21-2024 ambulatory MARINA Brink HEMMER Not Available Start: 01-18-2024 End: 01-19-2024 Telephone [...] by physician X[facility] Work Phone: [facility] General Comment on above: Chronic tophaceous [...] Start: 12-30-2023 End: 12-30-2023 ambulatory DELMY BOYLE Facility:[facility] Start: 12-30-2023 End: 12-30-2023 Clinisync Result Encounter Generic External Data Provider [facility] Unsolicited Start: 12-30-2023 End: 12-30-2023 Clinisync Result Encounter Generic External Data Provider [facility] Unsolicited Start: 12-10-2023 End: 12-15-2023 Refill Marina MARINELLI Work Phone: [facility] Comment on above: 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) Start: 12-07-2023 End: 12-07-2023 Refill Leydi Aceves MD Work Phone: [facility] Comment on above: Anxiety Start: 11-11-2023 End: 11-12-2023 Refill Leydi Aceves MD Work Phone: [facility] Comment on above: 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) Start: 11-08-2023 End: 11-09-2023 Refill Leydi Aceves MD Work Phone: [facility] Comment on above: Anxiety Start: 10-11-2023 End: 10-11-2023 ambulatory LEYDI ACEVES Not Available Start: 08-22-2023 End: 08-22-2023 ambulatory MD Leydi Aceves Work Phone: [facility] Work Phone: Start: 08-22-2023 End: 08-22-2023 Patient encounter procedure MD Leydi Aceves Work Phone: [facility] [place] Work Phone: Start: 08-16-2023 Refill Delmy newton MD Work Phone: Rheumatology Comment on above: Refill Request Start: 08-03-2023 Registered Recurring MD Leydi Aceves Work Phone: [facility] Start: 08-03-2023 ambulatory Nicola Castellon acility:[facility] Start: 07-06-2023 ambulatory Delmy newton MD Work Phone: Rheumatology Start: 07-06-2023 Patient encounter procedure Delmy Boyle MD Work Phone: Rheumatology Comment on above: Flare up Start: 07-05-2023 Refill Delmy newton MD Work Phone: Rheumatology Comment on above: Refill Request Start: 06-24-2023 End: 06-24-2023 ambulatory DELMY BOYLE Facility:[facility] Start: 06-24-2023 End: 06-24-2023 Patient encounter procedure Delmy Boyle MD Work Phone: Rheumatology Comment on above: Chronic tophaceous g out (Primary Dx); Encounter for long-term (current) use of medications; Stage 3 chronic kidney disease, unspecified whether stage 3a or 3b CKD (HCC); Idiopathic chronic gout of multiple sites with tophus Start: 06-21-2023 End: 06-21-2023 ambulatory DELMY BOYLE Facility:[facility] Start: 06-10-2023 End: 06-10-2023 ambulatory LEYDI ACEVES Not Available Start: 05-09-2023 End: 05-12-2023 ambulatory Nicola Leyva Facility:[facility] Start: 04-05-2023 Refill Leydi Aceves Keena Mansfield Work Phone: [facility] Start: 03-08-2023 End: 03-08-2023 ambulatory DELMY BOYLE Facility:[facility] Start: 03-04-2023 End: 03-04-2023 ambulatory DELMY BOYLE Facility:[facility] Start: 02-24-2023 End: 02-24-2023 Emergency department patient visit Ladi Huber Facility:[facility] Start: 02-19-2023 End: 02-20-2023 [facility] Start: 11-13-2022 ambulatory Delmy newton MD Work Phone: Rheumatology Comment on above: Prednisone Start: 11-13-2022 E-mail encounter fro m caregiver Delmy Boyle MD Work Phone: [facility] Start: 11-13-2022 Telephone encounter Delmy luna MD Work Phone: [facility] Comment on above: Patient Request Start: 07-24-2022 [...] unspecified whether stage 3a or 3b CKD ([facility]) Start: 12-19-2021 Refill Delmy newton MD Work Phone: Rheumatology Comment on above: Refill Request Start: 12-07-2021 End: 12-10-2021 Evaluation and management of inpatient MD Leydi Aceves Work Phone: [address] Start: 12-06-2021 End: 12-07-[address] LEYDI ACEVES Facility:[facility] Start: 10-19-2021 End: 10-19-2021 ambulatory ZHAO MAURER . Facility:[facility] Start: 09-27-2021 End: 09-27-2021 Emergency department patient visit MD Leydi Aceves Work Phone: [facility] Start: 09-27-2021 End: 09-27-2021 ambulatory ZHAO MAURER . 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 Start: 07-12-2018 End: 07-13-2018 Emergency department patient visit LEYDI ACEVES [facility] Procedures Date Procedure Procedure Detail Performing Clinician Start: 05-18-2024 ALL CBC WITH AUTO DIFF Marina MARINELLI Work Phone: Start: 01-04-2024 Radex foot complete minimum 3 views Delmy Boyle MD Work Phone: Start: 12-30-2023 [facility] CBC W AUTO DIFF BLD Generic External Data Provider Start: 08-19-2020 Adult depression screening assessment Delmy Boyle MD Work Phone: Start: 07-12-2018 Ct lumbar spine w/o contrast material RUGLAUREN KETAN Start: 07-12-2018 Ct thoracic spine w/ o contrast material RUGLAUREN KETAN Plan of Treatment Date Care Activity Detail Author Start: 06-01-2026 Urine microalbumin profile [facility] Start: 12-29-2024 Creatinine measurement Serum Creatinine [facility] Start: 10-30-2024 Influenza vaccination Influenza Vaccine (Season Ended) [facility] Start: 10-03-2024 End: 10-03-2024 Patient encounter procedure 10/03/2024 8:00 AM EDT Office Visit Rheumatology [address] [place], [place] [id number] [place] [address] [place], [place] [id number] Return in about 9 months (around 10/03/2024). Rheumatology Comment on above: Return in about 9 months (around ). Start: 09-25-2024 End: 12-25-2024 Alanine aminotransferase [Enzymatic activity/volume] in Serum or Plasma ALANINE AMINOTRANSFERASE / SGPT Lab Routine Chronic tophaceous gout Encounter for long-term (current) use of medications Expected: 09/25/2024 (Approximate), Expires: 12/25/2024 [facility] Comment on above: Expected: 09/25/2024 (Approximate), Expi res: 12/25/2024 Start: 09-25-2024 End: 12-25-2024 Albumin [Mass/volume] in Serum or Plasma ALBUMIN Lab Routine Chronic tophaceous gout Encounter for long-term (current) use of medications Expected: 09/25/2024 (Approximate), Expires: 12/25/2024 [facility] Comment on above: Expected: 09/25/2024 (Approximate), Expi res: 12/25/2024 Start: 09-25-2024 End: 12-25-2024 Aspartate aminotransferase [Enzymatic activity/volume] in Serum or Plasma ASPARTATE AMINOTRANSFERASE/SGOT Lab Routine Chronic tophaceous gout Encounter for long-term (current) use of medications Expected: 09/25/2024 (Approximate), Expires: 12/25/2024 [facility] Comment on above: Expected: 09/25/2024 (Approximate), Expi res: 12/25/2024 Start: 09-25-2024 End: 12-25-2024 C reactive protein [Mass/volume] in Serum or Plasma C-REACTIVE PROTEIN Lab Routine Chronic tophaceous gout Encounter for long-term (current) use of medications Expected: 09/25/2024 (Approximate), Expires: 12/25/2024 [facility] Comment on above: Expected: 09/25/2024 (Approximate), Expi res: 12/25/2024 Start: 09-25-2024 End: 12-25-2024 CBC W Auto Differential panel - Blood COMPLETE BLOOD COUNT AND DIFFERENTIAL Lab Routine Chronic tophaceous gout Encounter for long-term (current) use of medications Expected: 09/25/2024 (Approximate), Expires: 12/25/2024 [facility] Comment on above: Expected: 09/25/2024 (Approximate), Expi res: 12/25/2024 Start: 09-25-2024 End: 12-25-2024 CREATININE BLD CREATININE BLD Lab Routine Chronic tophaceous gout Encounter for long-term (current) use of medications Expected: 09/25/2024 (Approximate), Expires: 12/25/2024 [facility] Comment on above: Expected: 09/25/2024 (Approximate), Expi res: 12/25/2024 Start: 09-25-2024 End: 12-25-2024 Erythrocyte sedimentation rate SEDIMENTATION RATE, WESTERGREN Lab Routine Chronic tophaceous gout Encounter for long-term (current) use of medications Expected: 09/25/2024 (Approximate), Expires: 12/25/2024 [facility] Comment on above: Expected: 09/25/2024 (Approximate), Expi res: 12/25/2024 Start: 09-25-2024 End: 12-25-2024 Urate [Mass/volume] in Serum or Plasma URIC ACID Lab Routine Chronic tophaceous gout Encounter for long-term (current) use of medications Expected: 09/25/2024 (Approximate), Expires: 12/25/2024 [facility] Comment on above: Expected: 09/25/2024 (Approximate), Expi res: 12/25/2024 Start: 05-18-2024 End: 05-18-2024 Patient encounter procedure 05/18/2024 9:00 AM EDT Office Visit [facility] [address] [place] [address] Marina Rees PA [address] [place] [address] Arrived [facility] Comment on above: [...] [address] [place] [address] Marina Rees PA [address] [place] [address] Arrived [facility] Comment on above: Arrived Start: 03-04-2024 Creatinine measurement Serum Creatinine [facility] Start: 01-21-2024 End: 01-21-2024 Patient encounter procedure 01/21/2024 9:00 AM EST Office Visit [facility] [address] [place] [address] Marina Rees PA [address] [place] [address] [facility] Start: 01-17-2024 End: 01-17-2024 Patient encounter procedure 01/17/2024 9:15 AM EST Office Visit Orthopaedics [address] [place] [address] [place] [address] [place] [address] 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] Orthopaedics Comment on above: Other secondary osteoarthritis of multip le sites [M15.3] Start: 01-11-2024 End: 01-11-2024 Patient encounter procedure 01/11/2024 11:00 AM EST Office Visit [facility] [address] [facility] [address] [place] [id number] Leydi Aceves MD [address] [facility] [address] [place] [address] [facility] Start: 01-04-2024 End: 01-04-2024 Patient encounter procedure 01/04/2024 8:20 AM EST Office Visit Rheumatology [address] [place] [address] [place] [address] [place] [address] FU 6-7 MON WITH MD Rheumatology Comment on above: FU 6-7 MON WITH MD Start: 10-31-2023 Covid-19 Vaccine ( season) Covid-19 Vaccine ( season) [facility] Start: 10-31-2023 Influenza vaccination [facility] Start: 09-24-2023 End: 09-24-2023 Patient encounter procedure 09/24/2023 8:00 AM EDT Office Visit Rheumatology [address] [facility] [address] [facility], [place] [id number] Kelly Martell, SWIMMING POOL INSTALLER AND SERVICER.PAPER CUP MACHINE TENDER [address] [facility] [place] [id number] FU 3-4 MON WITH STEFANIA Rheumatology Comment on above: FU 3-4 MON WITH STEFANIA Start: 08-29-2023 Influenza vaccination Influenza Vaccine (#1) [facility] Comment on above: Postponed from 10/30/2022 (Other Patient Reasons) Start: 08-13-2023 Serum Creatinine Serum Creatinine [facility] Start: 03-01-2023 Behavioral Health Screening Behavioral Health Screening [facility] Start: 01-01-2023 BP CONTROLLED (<130/80) BP CONTROLLED (<130/80) [facility] Start: 10-30-2022 Covid-19 Vaccine () Covid-19 Vaccine () [facility] Start: 10-30-2022 Influenza vaccination [facility] Start: 07-13-2022 End: 09-12-2022 Alanine aminotransferase [Enzymatic activity/volume] in Serum or Plasma ALT/SGPT Lab 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 Encounter for long-term (current) use of medications Expected: 07/13/2022 (Approximate), Expires: 09/12/2022 [facility] Work Phone: Comment on above: Expected: 07/13/2022 (Approximate), Expi res: 09/12/2022 Start: 07-13-2022 End: 09-12-2022 Albumin [Mass/volume] in Serum or Plasma ALBUMIN BLD Lab 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 Encounter for long-term (current) use of medications Expected: 07/13/2022 (Approximate), Expires: 09/12/2022 [facility] Work Phone: Comment on above: Expected: 07/13/2022 (Approximate), Expi res: 09/12/2022 Start: 07-13-2022 End: 09-12-2022 Aspartate aminotransferase [Enzymatic activity/volume] in Serum or Plasma AST/SGOT BLD Lab 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 Encounter for long-term (current) use of medications Expected: 07/13/2022 (Approximate), Expires: 09/12/2022 [facility] Work Phone: Comment on above: Expected: 07/13/2022 (Approximate), Expi res: 09/12/2022 Start: 07-13-2022 End: 09-12-2022 C reactive protein [Mass/volume] in Serum or Plasma C-REACTIVE PROTEIN (CRP) Lab 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 Encounter for long-term (current) use of medications Expected: 07/13/2022 (Approximate), Expires: 09/12/2022 [facility] Work Phone: Comment on above: Expected: 07/13/2022 (Approximate), Expi res: 09/12/2022 Start: 07-13-2022 End: 09-12-2022 CBC W Auto Differential panel - Blood CBC + DIFF Lab 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 Encounter for long-term (current) use of medications Expected: 07/13/2022 (Approximate), Expires: 09/12/2022 [facility] Work Phone: Comment on above: Expected: 07/13/2022 (Approximate), Expi res: 09/12/2022 Start: 07-13-2022 End: 09-12-2022 CREATININE BLD CREATININE BLD Lab 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 Encounter for long-term (current) use of medications Expected: 07/13/2022 (Approximate), Expires: 09/12/2022 [facility] Work Phone: Comment on above: Expected: 07/13/2022 (Approximate), Expi res: 09/12/2022 Start: 07-13-2022 End: 09-12-2022 Erythrocyte sedimentation rate SED RATE WESTERGREN Lab 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 Encounter for long-term (current) use of medications Expected: 07/13/2022 (Approximate), Expires: 09/12/2022 [facility] Work Phone: Comment on above: Expected: 07/13/2022 (Approximate), Expi res: 09/12/2022 Start: 07-13-2022 End: 09-12-2022 Urate [Mass/volume] in Serum or Plasma URIC ACID BLOOD Lab 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 Encounter for long-term (current) use of medications Expected: 07/13/2022 (Approximate), Expires: 09/12/2022 [facility] Work Phone: Comment on above: Expected: 07/13/2022 (Approximate), Expi res: 09/12/2022 Start: 04-23-2022 SERUM CREATININE SERUM CREATININE [facility] Start: 03-01-2022 DEPRESSION ASSESSMENT DEPRESSION ASSESSMENT [facility] Start: 12-10-2021 [facility] Start: 12-07-2021 Hospital admission [facility] Start: 12-07-2021 Referral to Plant Operations Vice President [facility] Start: 10-30-2021 Influenza vaccination [facility] [...] CHRONIC DISEASE VISIT [facility] Start: 02-26-2008 Anxiety Screening Anxiety Screening [facility] Start: 02-26-2008 BP CONTROLLED (<130/80) BP CONTROLLED (<130/80) [facility] Start: 02-26-2008 Depression Screening Depression Screening [facility] Start: 02-26-2008 HIV SCREENING HIV SCREENING [...] for 5 Occurrences starting 06/24/2023 until 06/23/2024 [facility] Work Phone: Comment on above: Every [...] startin g 06/24/2023 until 06/23/2024 Patient Education [facility] Work Phone: Patient referral [facility] Work Phone: End: 06-23-2024 Urate [...] medications 1 Occurrences starting 01/04/2024 until 02/02/2025 [facility] Work Phone: Comment on above: 1 Occurrences starting 01/04/2024 until 02/02/2025 XR Foot - bilateral AP and Lateral and oblique XR FOOT GENERAL 3V AP/LAT/OBL BILATERAL Radiology Routine Chronic tophaceous gout Encounter for long-term (current) use of medications 01/04/2024 9:48 AM EST [facility] [place] [facility] Immunizations Immunization Date Immunization Notes Care Provider Yanelis [facility] 10-13-2018 influenza virus vacc ine, unspecified formulation Delmy Boyle MD Work Phone: [facility] 10-13-2002 measles, mumps and rubella virus vaccine Leydi Aceves MD Work Phone: [facility] 10-20-1993 diphtheria, tetanus toxoids and acellular pertussis vaccine, unspecified formulation Leydi Aceves MD Work Phone: [facility] 10-20-1993 haemophilus influenz ae type b vaccine, conjugate unspecified formulation Leydi Aceves MD Work Phone: [facility] 10-20-1993 trivalent poliovirus vaccine, live, oral Leydi Aceves MD Work Phone: [facility] 07-26-1991 diphtheria, tetanus toxoids and pertussis vaccine Leydi Aceves MD Work Phone: [facility] 07-26-1991 haemophilus influenz ae type b vaccine, conjugate unspecified formulation Leydi Aceves MD Work Phone: [facility] 07-26-1991 measles, mumps and rubella virus vaccine Leydi Aceves MD Work Phone: [facility] 02-03-1991 diphtheria, tetanus toxoids and pertussis vaccine Leydi Aceves MD Work Phone: [facility] 02-03-1991 haemophilus influenz ae type b vaccine, conjugate unspecified formulation Leydi Aceves MD Work Phone: [facility] 02-03-1991 trivalent poliovirus vaccine, live, oral Leydi Aceves MD Work Phone: [facility] 1990 diphtheria, tetanus toxoids and pertussis vaccine Leydi Aceves MD Work Phone: [facility] 1990 haemophilus influenz ae type b vaccine, conjugate unspecified formulation Leydi Aceves MD Work Phone: [facility] 1990 trivalent poliovirus vaccine, live, oral Leydi Aceves MD Work Phone: [facility] Payers Date Payer Category Payer Self-pay 2022 [facility] Health Insurance [facility] MEDICAID [id number] 2021 Medicaid [facility] MEDICAID [id number] 2021-Present [phone] [address] [place] [address] Medicaid [id number] 2021 Medicaid [id number] 2018 Unknown [id number] 1990 Unknown [id number] 2.16.840.1.067985.3.579.2. 173 1990 Unknown [id number] 2.16.840.1.830159.3.579.2. 593 1990 Unknown [id number] 2.16.840.1.839415.3.579.2. 593 1990 Unknown [id number] 2.16.840.1.966725.3.579.2. 593 1990 Unknown [id number] 2.16.840.1.645120.3.579.2. 593 1990 Unknown [id number] 2.16.840.1.813099.3.579.2. 593 1990 Unknown [id number] 2.16.840.1.700578.3.579.2. 593 1990 Unknown [id number] 2.16.840.1.881782.3.579.2. 593 1990 Unknown [id number] 2.16.840.1.516909.3.579.2. 593 1990 Unknown [id number] 2.16.840.1.349568.3.579.2. 593 1990 Unknown [id number] 2.16.840.1.079776.3.579.2. 593 1990 Unknown [id number] 2.16.840.1.801188.3.579.2. 727 1990 Unknown [id number] 2.16.840.1.241862.3.579.2. 1259 1990 Unknown [id number] 2.16.840.1.254923.3.579.2. 9 1990 Unknown [id number] 2.16.840.1.426206.3.579.2. 1258 1990 Unknown [id number] 2.16.840.1.558303.3.579.2. 1258 1990 Unknown [id number] 2.16.840.1.230604.3.579.2. 1259 1959 Medicaid [id number] [id number] [facility] [id number] Unknown [id number] 2.16.840.1.171012.3.579.2. 531 Unknown [id number] 2.16.840.1.165351.3.579.2. 531 Social History Date Type Detail Facility Start: 05-04-2017 End: 01-01-2022 Tobacco smoking status LAIS Never smoked tobacco [facility] Start: 05-04-2017 End: 01-11-2024 Tobacco use and exposure User of smokeless tobacco [facility] History of tobacco use Chews Tobacco [facility] Start: 1990 Sex Assigned At Male [facility] Start: 12-08-2021 Tobacco smoking status NHIS Smoker (finding) [facility] Start: 12-22-2021 End: 01-01-2022 Exposure to SARS-CoV-2 (event) Not sure [facility] Start: 08-14-2022 End: 10-10-2023 History of Social function [facility] Start: 08-14-2022 End: 10-10-2023 Tobacco use panel [facility] Adult Depression Screening Assessment 4 [facility] Start: 11-09-2019 Gender identity Identifies as male gender (finding) [facility] Start: 11-09-2019 Sexual orientation Heterosexual (finding) [facility] Start: 09-14-2022 Tobacco use and exposure Smokeless tobacco non-user [facility] Start: 02-16-2023 End: 05-18-2024 Alcohol intake Current drinker of alcohol (finding) [facility] Within the last year , have you been afraid of your partner or ex-partner? No [facility] Do you belong to any clubs or organizations such as sikhism groups, unions, [employer] or athletic groups, or school groups? Yes [...] Start: 02-26-2008 End: 01-11-2024 Tobacco smoking status LAIS Smokes tobacco daily [facility] Are you [...] 02-26-2008 History of tobacco use Cigarette Smoker [facility] Goals Date Patient Goal Desired Activity /State Functional Status Date Assessment Result Facility 12-10-2021 Functional status Patient at Baseline [facility] Work Phone: 12-07-2021 Functional status Disability Sta tus Patient at Baseline [facility] Work Phone: Mental Status Date Assessment Result Facility 12-10-2021 Cognitive function Cognitive Sta tus Patient at Baseline [facility] Work Phone: Clinical Notes 04-25-2017 to 07-26-2024 Telephone Encounter - ISIS Vera - 07/26/2024 9:35 AM EDTTelephone Encounter - [facility] Vera - 07/26/2024 9:35 AM EDTTelephone Encounter - [facility] Vera - 07/26/2024 9:33 AM EDT Note Date & Type Note Facility 07-26-2024 Telephone encounter Note Tramadol already sent. [facility] 07-26-2024 Miscellaneous Notes Tramadol already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 Encounter for long-term (current) use of other medications Stage 3 chronic kidney disease, unspecified whether stage 3a or 3b CKD (HCC) [facility] Diagnosis 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* Diagnosis Chronic tophaceous gout- Primary [...] with tophus (tophi) [facility] Diagnosis Onset Date Resolution Status Acute pansinusitis acute [facility] Work Phone: evaluation note* Diagnosis Anxiety Anxiety state, unspecified documented in this encounter 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 Encounter for long-term (current) use of medications Encounter for long-term (current) use of other medications [facility] Diagnosis Anxiety- Primary Anxiety state, unspecified [...] essential hypertension Anxiety- Primary Anxiety state, unspecified Accidental overdose, initial encounter Stage 3a chronic kidney disease (HCC) (CMS/HCC) 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) COVID-19 virus infection- Primary Idiopathic chronic gout of multiple sites with tophus Stage 3a chronic kidney disease (HCC) (CMS/HCC) Essential hypertension (CMS/HCC) Unspecified essential hypertension Immunodeficiency, unspecified 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) Anxiety Anxiety state, unspecified 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) [facility] Diagnosis Anxiety- Primary Anxiety state, unspecified Other chronic pain Adjustment disorder with depressed mood (CMS/HCC) Adjustment disorder with depressed mood Essential hypertension (CMS/HCC) Unspecified essential hypertension Anxiety- Primary Anxiety state, unspecified Accidental overdose, initial encounter Stage 3a chronic kidney disease (HCC) (CMS/HCC) 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) COVID-19 virus infection- Primary Idiopathic chronic gout of multiple sites with tophus Stage 3a chronic kidney disease (HCC) (CMS/HCC) Essential hypertension (CMS/HCC) Unspecified essential hypertension Immunodeficiency, unspecified 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) Anxiety Anxiety state, unspecified 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) [facility]* Diagnosis Anxiety- Primary Anxiety state, unspecified Other chronic pain Adjustment disorder with depressed mood (CMS/HCC) Adjustment disorder with depressed mood Essential hypertension (CMS/HCC) Unspecified essential hypertension Anxiety- Primary Anxiety state, unspecified Accidental overdose, initial encounter Stage 3a chronic kidney disease (HCC) (CMS/HCC) 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) COVID-19 virus infection- Primary Idiopathic chronic gout of multiple sites with tophus Stage 3a chronic kidney disease (HCC) (CMS/HCC) Essential hypertension (CMS/HCC) Unspecified essential hypertension Immunodeficiency, unspecified 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) Anxiety Anxiety state, unspecified 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) [facility] Diagnosis Anxiety- Primary Anxiety state, unspecified Other chronic pain Adjustment disorder with depressed mood (CMS/HCC) Adjustment disorder with depressed mood Essential hypertension (CMS/HCC) Unspecified essential hypertension Anxiety- Primary Anxiety state, unspecified Accidental overdose, initial encounter Stage 3a chronic kidney disease (HCC) (CMS/HCC) 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) COVID-19 virus infection- Primary Idiopathic chronic gout of multiple sites with tophus Stage 3a chronic kidney disease (HCC) (CMS/HCC) Essential hypertension (CMS/HCC) Unspecified essential hypertension Immunodeficiency, unspecified 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) Anxiety Anxiety state, unspecified 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) [facility] Diagnosis Anxiety- Primary Anxiety state, unspecified Other chronic pain Adjustment disorder with depressed mood (CMS/HCC) Adjustment disorder with depressed mood Essential hypertension (CMS/HCC) Unspecified essential hypertension Anxiety- Primary Anxiety state, unspecified Accidental overdose, initial encounter Stage 3a chronic kidney disease (HCC) (CMS/HCC) 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) COVID-19 virus infection- Primary Idiopathic chronic gout of multiple sites with tophus Stage 3a chronic kidney disease (HCC) (CMS/HCC) Essential hypertension (CMS/HCC) Unspecified essential hypertension Immunodeficiency, unspecified 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) Anxiety Anxiety state, unspecified 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) [facility]* Diagnosis Anxiety- Primary Anxiety state, unspecified Other chronic pain Adjustment disorder with depressed mood (CMS/HCC) Adjustment disorder with depressed mood Essential hypertension (CMS/HCC) Unspecified essential hypertension Anxiety- Primary Anxiety state, unspecified Accidental overdose, initial encounter Stage 3a chronic kidney disease (HCC) (CMS/HCC) 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) COVID-19 virus infection- Primary Idiopathic chronic gout of multiple sites with tophus Stage 3a chronic kidney disease (HCC) (CMS/HCC) Essential hypertension (CMS/HCC) Unspecified essential hypertension Immunodeficiency, unspecified 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) Anxiety Anxiety state, unspecified 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) [facility] Diagnosis Anxiety- Primary Anxiety state, unspecified Other chronic pain Adjustment disorder with depressed mood (CMS/HCC) Adjustment disorder with depressed mood Essential hypertension (CMS/HCC) Unspecified essential hypertension Anxiety- Primary Anxiety state, unspecified Accidental overdose, initial encounter Stage 3a chronic kidney disease (HCC) (CMS/HCC) 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) COVID-19 virus infection- Primary Idiopathic chronic gout of multiple sites with tophus Stage 3a chronic kidney disease (HCC) (CMS/HCC) Essential hypertension (CMS/HCC) Unspecified essential hypertension Immunodeficiency, unspecified 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) Anxiety Anxiety state, unspecified 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) [facility] Additional Instructions Rest Apply ice to affected area Avoid electronics Follow-up with neurology on Wednesday Tylenol Motrin if needed for discomfort Return here if you develop any numbness, tingling, unilateral weakness, unsteady gait, confusion or any other [facility] Work Phone: Hospital Discharge instructions Additional Instructions Regular diet. No activity restrictions.[facility] Work Phone: Reason for referral (narrative)* Diagnostic Procedure Only (Routine) - Closed Specialty Diagnoses / Procedures Referred By Contac t Referred To Contact XR IMAGING Diagnoses Chronic tophaceous gout Encounter for long-term (current) use of medications Procedures XR FOOT GENERAL 3V AP/LAT/OBL BILATERAL RADEX FOOT COMPLETE MINIMUM [place] [address] [place] [address] [place] [address] Referral ID Status Reason Start Date Expiration Date V isits Requested Visits Authorized [id number] Closed Auto-Generate d Referral 01/04/2024 02/02/2025 1 1 * Diagnostic Procedure Only (Routine) - Closed Specialty Diagnoses / Procedures Referred By Contac t Referred To Contact XR IMAGING Diagnoses 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 Procedures XR KNEE GENERAL 4V AP BOTH/PA BOTH/LAT/MERC BILATERAL RADIOLOGIC EXAM KNEE COMPLETE 4/[place] [address] [place] [address] [place] [address] Referral ID Status Reason Start Date Expiration Date V isits Requested Visits Authorized [id number] Closed Auto-Generate d Referral 01/04/2024 02/02/2025 1 1 [facility] Summary Purpose Family History Relationship Condition Age at Onset Recorded Date/T vish father Hypertension Unknown Ingrown nail Unknown Not Specified Hypertension Unknown brother Hypertension Unknown sister Hypertension Unknown Depression Unknown family member Gout Unknown Suicide Unknown Advance Directives Documents on File Type Date Recorded 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 Advance Directive(s) 04/25/2017 12:32 PM [...] Specialty Diagnoses / Procedures Referred By Destiny harmon Referred To Contact Diagnoses Stage 3 chronic kidney disease, unspecified whether stage 3a or 3b CKD (HCC) Other secondary [place] [address] [place] [address] Referral ID Status Reason Start Date Expiration Date Visits Re quested Visits Authorized [id number] Closed 01/04/2024 03/04/2024 1 1 Specialty Diagnoses / Procedures Referred By Destiny harmon Referred To Contact XR IMAGING Diagnoses 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 Procedures XR KNEE GENERAL 4V AP BOTH/PA BOTH/LAT/MERC BILATERAL RADIOLOGIC EXAM KNEE COMPLETE 4/[place] [address] [place] [address] [place] [address] Referral ID Status Reason Start Date Expiration Date V isits Requested Visits Authorized [id number] Closed Auto-Generate d Referral 01/04/2024 02/02/2025 1 1 Specialty Diagnoses / Procedures Referred By Destiny harmon Referred To Contact Orthopedics Diagnoses Other secondary osteoarthritis of multiple sites Procedures CONSULT TO ORTHOPAEDICS OFFICE/OUTPATIENT [facility] MDM 60 [place] [address] [place] [address] Referral ID Status Reason Start Date Expiration Date Visits Requested Visits Authorized [id number] Authorized PCP Requested Referral 01/04/2024 04/03/2024 1 1 Specialty Diagnoses / Procedures Referred By Destiny harmon Referred To Contact XR IMAGING Diagnoses Chronic tophaceous gout Encounter for long-term (current) use of medications Procedures XR FOOT GENERAL 3V AP/LAT/OBL BILATERAL RADEX FOOT COMPLETE MINIMUM 3 [place] [address] [place] [address] [place] [address] Referral ID Status Reason Start Date Expiration Date V isits Requested Visits Authorized [id number] Closed Auto-Generate d Referral 01/04/2024 02/02/2025 1 1 Additional Source Comments (unrecognized sect ion and content) No Status Records FoundNo Status Records FoundNo Status Records FoundNo Status Records FoundNo Status Records FoundNo Status Records FoundNo Status Records FoundNo Status Records FoundNo Status Records Found INFORMATION SOURCE (unrecogn ized section and content) DATE CREATED [facility] DATE CREATED AUTHOR AUTHOR'S ORGANIZ ATION 11/11/2021 [facility] DATE CREATED AUTHOR AUTHOR'S ORGANIZ ATION 08/07/2022 [facility] DATE CREATED AUTHOR AUTHOR'S ORGANIZ ATION 2023 [facility] DATE CREATED AUTHOR AUTHOR'S ORGANIZ ATION 02/26/2023 [facility] DATE CREATED AUTHOR AUTHOR'S ORGANIZ ATION 09/13/2023 [facility] DATE CREATED AUTHOR AUTHOR'S ORGANIZ ATION 01/05/2024 [facility] DATE CREATED AUTHOR AUTHOR'S ORGANIZ ATION 01/08/2024 [facility] DATE CREATED AUTHOR AUTHOR'S ORGANIZ ATION 05/20/2024 [facility] dical Specialists EPIC Source Comments (unrecognize [...] or prosecute any alcohol or drug abuse patient.[facility] ClinicIn the event this information is protected by [...] August 22, 2023 End: August 22, 2023 Screener Operator Relationship Specialty Start Date End Date Ketan Leydi Temple PCP - General Family Practice 01/07/15 Team Status: Inactive Member Role Status Dates Leydi Aceves MD Primary Care Provider Active Juvenal Smith MD Emergency Provider Active Team Status: Inactive Member Role Status Dates Leydi Aceves MD Primary Care Provider Active Adam Young MD Admit Provider, Attending Provider Active Screener Operator Relationship Specialty Start Date End Date Ketan Leydi Temple PCP - General Family Medicine 01/07/15 Screener Operator Relationship Specialty Start Date End Date Leydi Aceves PCP - General Family Medicine 01/07/15 Screener Operator Relationship Specialty Start Date End Date Leydi Aceves PCP - General Family Medicine 01/07/15 Screener Operator Relationship Specialty Start Date End Date Leydi Aceves PCP - General Family Medicine 01/07/15 Screener Operator Relationship Specialty Start Date End Date Leydi Aceves MD PCP - General Family Medicine 01/07/15 Screener Operator Relationship Specialty Start Date End Date Leydi Aceves MD PCP - General Family Medicine 01/07/15 Screener Operator Relationship Specialty Start Date End Date Leydi Aceves MD [address] [facility] [address] [place] [address] PCP - General Family Medicine 07/29/22 Leydi Aceves MD [address] [place] [address] PCP - [facility] 05/30/22 Screener Operator Relationship Specialty Start Date End Date Leydi Aceves MD [address] [place] [address] PCP - [facility] 07/29/22 Leydi Aceves MD [address] [place] [address] PCP - [facility] 05/30/22 Screener Operator Relationship Specialty Start Date End Date Leydi Aceves MD PCP - General Family Medicine 01/07/15 Screener Operator Relationship Specialty Start Date End Date Leydi Aceves MD PCP - General Family Medicine 01/07/15 Screener Operator Relationship Specialty Start Date End Date Leydi Aceves MD PCP - General Family Medicine 01/07/15 Screener Operator Relationship Specialty Start Date End Date Leydi Aceves MD [address] [place] [address] PCP - [facility] 07/29/22 Leydi Aceves MD [address] [place] [address] PCP - [facility] 05/30/22 Grady, Alma, METAL MACHINE OPERATOR [address] [place] [address] Licensed Practical Nurse Family Medicine 06/04/23 Screener Operator Relationship Specialty Start Date End Date Leydi Aceves MD [address] [place] [address] PCP - General Family Medicine 07/29/22 Leydi Aceves MD [address] [place] [address] PCP - [facility] 05/30/22Wednesday, Alma, METAL MACHINE OPERATOR [address] [place] [address] Licensed Practical Nurse Family Medicine 06/04/23 Screener Operator Relationship Specialty Start Date End Date Leydi Aceves MD [address] [place] [address] PCP - General Family [facility] 07/29/22 Leydi Aceves MD [address] [place] [address] [facility] 05/30/22Wednesday, Alma, METAL MACHINE OPERATOR [address] [place] [address] Licensed Practical Nurse Family Medicine 06/04/23 Screener Operator Relationship Specialty Start Date End Date Leydi Aceves MD PCP - General Family Medicine 01/07/15 Screener Operator Relationship Specialty Start Date End Date Leydi Aceves MD PCP - General Family Medicine 01/07/15 Screener Operator Relationship Specialty Start Date End Date Leydi Aceves MD PCP - [facility] 01/07/15 Screener Operator Relationship Specialty Start Date End Date Leydi Aceves MD [address] [place] [address] PCP - [facility] 07/29/22 Leydi Aceves MD [address] [place] [address] PCP [facility] 05/30/22Wednesday, Alma, METAL MACHINE OPERATOR [address] [place] [address] Licensed Practical Nurse Family Medicine 06/04/23 Screener Operator Relationship Specialty Start Date End Date Leydi Aceves MD [address] [place] [address] PCP - [facility] 07/29/22 Leydi Aceves MD [address] [place] [address] [facility] 05/30/22Wednesday, Alma, METAL MACHINE OPERATOR [address] [place] [address] Licensed Practical Nurse Family Medicine 06/04/23 Screener Operator Relationship Specialty Start Date End Date Leydi Aceves MD [address] [place] [address] PCP - [facility] 07/29/22 Leydi Aceves MD [address] [place] [address] PCP [facility] 05/30/22Wednesday, Alma, METAL MACHINE OPERATOR [address] [place] [address] Licensed Practical Nurse Family Medicine 06/04/23 Screener Operator Relationship Specialty Start Date End Date Leydi Aceves MD [address] [place] [address] PCP - [facility] 07/29/22 Leydi Aceves MD [address] [place] [address] PCP [facility] 05/30/22Wednesday, Alma, METAL MACHINE OPERATOR [address] [place] [address] Licensed Practical Nurse Family Medicine 06/04/23 Screener Operator Relationship Specialty Start Date End Date Leydi Aceves MD [address] [place] [address] PCP - General [facility] 07/29/22 Leydi Aceves MD [address] [place] [address] PCP [facility] 05/30/22Wednesday, Alma, METAL MACHINE OPERATOR [address] [place] [address] Licensed Practical Nurse Family Medicine 06/04/23 Screener Operator Relationship Specialty Start Date End Date Leydi Acvees MD [address] [place] [address] PCP - General [facility] Medicine 07/29/22 Leydi Aceves MD [address] [place] [address] PCP [facility] 05/30/22Wednesday, BREE Marquez [address] [place] [address] Licensed Practical Nurse Family Medicine 06/04/23 Screener Operator Relationship Specialty Start Date End Date Leydi Aceves MD [address] [place] [address] PCP - [facility] 07/29/22 Leydi Aceves MD [address] [place] [address] PCP [facility] 05/30/22Wednesday, BREE Marquez [address] [place] [address] Licensed Practical Nurse Family Medicine 06/04/23 Screener Operator Relationship Specialty Start Date End Date Leydi Aceves MD [address] [place] [address] PCP - General [facility] 07/29/22 Leydi Aceves MD [address] [place] [address] PCP [facility] 05/30/22 Jayne Del Valle RN Licensed Practical Nurse Family Medicine 04/07/24 Screener Operator Relationship Specialty Start Date End Date Leydi Aceves MD [address] [place] [address] PCP - General [facility] 07/29/22 Leydi Aceves MD [address] [place] [address] PCP [facility] 05/30/22 Jayne Del Valle RN Licensed Practical Nurse Family Medicine 04/07/24 Screener Operator Relationship Specialty Start Date End Date Leydi Aceves MD [address] [place] [address] PCP - General Family [facility] 07/29/22 Leydi Aceves MD [address] [place] [address] PCP - [facility] 05/30/22 Jayne Del Valle, DELMIS Licensed Practical Nurse Family Medicine 04/07/24 Screener Operator Relationship Specialty Start Date End Date Leydi Aceves MD [address] [place] [address] PCP - [facility] 07/29/22 Leydi Aceves MD [address] [place] [address] PCP - [facility] 05/30/22 Jayne Del Valle, DELMIS Licensed Practical Nurse Family Medicine 04/07/24 Screener Operator Relationship Specialty Start Date End Date Leydi Aceves MD [address] [place] [address] PCP - General [facility] 07/29/22 Leydi Aceves MD [address] [place] [address] PCP [facility] 05/30/22 Jayne Del Valle, DELMIS Licensed Practical Nurse Family Medicine 04/07/24 Screener Operator Relationship Specialty Start Date End Date Leydi Aceves MD [address] [place] [address] PCP - General [facility] 07/29/22 Leydi Aceves MD [address] [place] [address] PCP - [facility] 05/30/22 Merry Paz LPN 05/19/24 Screener Operator Relationship Specialty Start Date End Date Leydi Aceves MD [address] [place] [address] PCP - [facility] 07/29/22 Leydi Aceves MD [address] [place] [address] PCP - [facility] 05/30/22 Merry Paz METAL MACHINE OPERATOR 05/19/24 Screener Operator Relationship Specialty Start Date End Date Leydi Aceves MD [address] [place] [address] PCP - [facility] 07/29/22 Leydi Aceves MD [address] [place] [address] PCP - [facility] 05/30/[address] [facility] NETWORK 05/19/24 Screener Operator Relationship Specialty Start Date End Date Leydi Aceves MD [address] [place] [address] PCP - [facility] 07/29/22 Leydi Aceves MD [address] [place] [address] PCP - [facility] 05/30/22 Merry Paz LPN 05/19/24 Screener Operator Relationship Specialty Start Date End Date eLydi Aceves MD [address] [facility] [address] [place] [address] PCP - [facility] 07/29/22 Leydi Aceves MD [address] [facility] [address] [place] [address] PCP - [facility] 05/30/22 Merry Paz LPN 05/19/24 Screener Operator Relationship Specialty Start Date End Date Leydi Aceves MD [address] [facility] [address] [place] [address] PCP - [facility] 07/29/22 Leydi Aceves MD [address] [facility] [address] [place] [address] PCP - [facility] 05/30/22 Merry Paz METAL MACHINE OPERATOR 05/19/24 Goals (unrecognized section and content) Goals may [...] KNEE COMPLETE 4/[place] [address] [place] [address] [facility] [id number] Referral ID Status Reason Start Date Expiration Date V isits Requested Visits Authorized [id number] Closed Auto-Generate d Referral 01/04/2024 02/02/2025 1 [...] Reason Onset Date Comments Med Refill 05/10/2024 Reason Onset Date Comments Med Refill 05/29/2024 Reason Onset Date Comments Med Refill 05/30/2024 Reason Onset Date Comments Med Refill 06/05/2024 Reason Onset Date Comments Med Refill 06/12/2024 Reason Onset Date Comments Med Refill 06/19/2024 Reason Comments Med Refill Reason Onset Date Comments Med Refill 06/26/2024 Reason Onset Date Comments Med Refill 06/28/2024 Reason Onset Date Comments Med Refill 07/03/2024 Reason Onset Date Comments Med Refill 07/07/2024 Reason Onset Date Comments Med Refill 07/11/2024 Reason Onset Date Comments Med Refill 07/26/2024 FOR RECORDS PERTAINING TO PATIENTS WHO ARE [...] BE BASED ON THE PRIMARY CLINICAL RECORDS. [employer] provides no warranty or guarantee of the accuracy or completeness of information in this document.
--- OUTSIDE RECORDS SUMMARY | 2024-07-29 20:18 | XMS_ITS | Encounter Summary ---
Author Organization [facility] Address [address] [place] [address] Care Team Providers Care Bus Monitor Name Role Phone Malcolm Cid MD Primary Care Provider [phone] Source Comments In the event this information is protected by the Federal Confidentiality of Alcohol and Drug AbusePatient Records regulations: The Federal rules restrict any use of the information to criminally investigate or prosecute any alcohol or drug abuse patient.[facility] Encounter Details Date Type Department Care Team (Late st Contact Info) Description 08/12/2018 Patient Msg Rheumatology [address] [place], [place] [id number] Provider, Ccalvarado RE: Reply Social History Tobacco Use Types Packs/Day Years Used Date Smoking Tobacco: Never Smokeless Tobacco: Current Chew Sex and Gender Information Value Date Recorded Sex Assigned at Male 11/09/2019 12:50 PM EDT Legal Sex Male 3:20 PM EST Gender Identity Male 11/09/2019 12:50 PM EDT Sexual Orientation Straight 11/09/2019 12 :50 PM EDT documented as of this encounter Functional Status * Are you deaf or do you have serious difficulty hearing? Answer Date of Assessment Author No 04/26/2017 6:15 PM Oralia Hurtado RN * Are you blind or do you have serious difficulty seeing, even when wearing glasses? Answer Date of Assessment Author No 04/26/2017 6:15 PM Oralia Hurtado RN * Do you have serious difficulty walking or climbing stairs? Answer Date of Assessment Author No 04/26/2017 6:15 PM Oralia Hurtado RN * Do you have difficulty dressing or bathing? Answer Date of Assessment Author No 04/26/2017 6:15 PM Oralia Hurtado RN * Because of a physical, mental, or emotional condition, do you have difficulty doing errands alone such as visiting a doctor's office or shopping? Answer Date of Assessment Author No 04/26/2017 6:15 PM Oralia Hurtado RN documented as of this encounter Mental Status * Because of a physical, mental, or emotional condition, do you have serious difficulty concentrating, remembering, or making decisions? Answer Entry Date Author No 04/26/2017 6:15 PM Oralia Hurtado RN documented in this encounter Plan of Treatment Upcoming Encounters Date Type Department Care Team (Late st Contact Info) Description 10/03/2024 8:00 AM EDT Office Visit Rheumatology [address] [place] [address] [place] [address] [place] [address] Return in about 9 months (around 10/03/2024). documented as of this encounter Visit Diagnoses Not on filedocumented in this encounter Care Teams Bus Monitor Relationship Specialty Start Date End Date Malcolm Cid MD PCP - General Family Medicine 01/07/15 documented as of this encounter
--- OUTSIDE RECORDS SUMMARY | 2024-07-29 20:18 | XMS_ITS | Encounter Summary ---
Author Organization [facility] Address [address] [place] [address] Care Team Providers Care Paper Stacker Name Role Phone Malcolm Cid MD Primary Care Provider [phone] Source Comments In the event this information is protected by the Federal Confidentiality of Alcohol and Drug AbusePatient Records regulations: The Federal rules restrict any use of the information to criminally investigate or prosecute any alcohol or drug abuse patient.[facility] Encounter Details Date Type Department Care Team (Late st Contact Info) Description 02/12/2020 Patient Msg Rheumatology [address] [place], [place] [id number] [place] [address] [place] [address] Lab reminder Social History Tobacco Use Types Packs/Day Years Used Date Smoking Tobacco: Never Smokeless Tobacco: Current Chew PHQ-2 Answer Date Recorded PHQ-2 score 6 11/09/2019 Area Deprivation Index Answer Date Adis rded National Score (1-100), lower number is lower ri sk Not on file 02/05/2020 State Score (1-10), lower number is lower risk N ot on file 02/05/2020 Data from: https://www.neighborhoodatlas.medicine.[facility]/. Last address used for calculation Not on file 02/05/2020 Sex and Gender Information Value Date Recorded Sex Assigned at Male 11/09/2019 12:50 PM EDT Legal Sex Male 3:20 PM EST Gender Identity Male 11/09/2019 12:50 PM EDT Sexual Orientation Straight 11/09/2019 12 :50 PM EDT COVID-19 Exposure Response Date Recorded In the last month, have you been in contact with someone who was confirmed or suspected to have Coronavirus / COVID-19? No / Unsure 02/12/2020 3:15 PM EST documented as of this encounter Functional Status [...] 10/03/2024 8:00 AM EDT Office Visit Rheumatology [address] [place], [place] [id number] [place] [address] [place], [place] [id number] Return in about 9 months (around 10/03/2024). documented as of this encounter Visit Diagnoses Not on filedocumented in this encounter Care Teams Paper Stacker Relationship Specialty Start Date End Date Malcolm Cid MD PCP - General Family Medicine 01/07/15 documented as of this encounter
--- OUTSIDE RECORDS SUMMARY | 2024-07-29 20:18 | XMS_ITS | Encounter Summary ---
Author Organization [facility] Address [address] [place] [address] Care Team Providers Care Admissions Counselor Name Role Phone Malcolm Cid MD Primary Care Provider [phone]- [phone] Source Comments In the event this information is protected by the Federal Confidentiality of Alcohol and Drug AbusePatient Records regulations: The Federal rules restrict any use of the information to criminally investigate or prosecute any alcohol or drug abuse patient.[facility] Encounter Details Date Type Department Care Team (Late st Contact Info) Description 12/27/2018 Patient Msg Rheumatology [address] [place], [place] [id number] Provider, Issa RE: Update from Dr Castro office Social History Tobacco Use Types Packs/Day Years [...] 10/03/2024 8:00 AM EDT Office Visit Rheumatology [address] [place], [place] [id number] [place] [address] [place] [address] Return in about 9 months (around 10/03/2024). documented as of this encounter Visit Diagnoses Not on filedocumented in this encounter Care Teams Admissions Counselor Relationship Specialty Start Date End Date Malcolm Cid MD PCP - General Family Medicine 01/07/15 documented as of this encounter
--- OUTSIDE RECORDS SUMMARY | 2024-07-29 20:18 | XMS_ITS | Encounter Summary ---
Author Organization [facility] Address [address] [place] [address] Care Team Providers Care Dusting And Brushing Machine Operator Name Role Phone Malcolm Cid MD Primary Care Provider [phone] Malcolm Cid MD Unavailable Wednesday, Alma AQUINON Unavailable [phone] Jayne Del Valle RN Unavailable Merry Paz TAX CLERK Unavailable Unavailable Reason for Visit * Reason Onset Date Comments Med Refill 08/23/2023 Encounter Details Date Type Department Care Team (Late st Contact Info) Description 08/23/2023 Refill [facility] [address] [facility] [address] [place] [id number] Malcolm Cid MD [address] [place], [place] [id number] 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 rheumatoid factor ([facility]/HCC) Social History Tobacco Use Types Packs/Day Years Used Date Smoking Tobacco: Every Day Smokeless Tobacco: Current Chew Alcohol Use Standard Drinks/Week Comments Yes 6 (1 standard drink = 0.6 oz pure alcohol) 2 or 3 drinks in one sitting. Maybe two or three times per w Humiliation, Afraid, Rape, and Kick questionnair e Answer Date Recorded Within the last year, have y ou been afraid of your partner or ex-partner? No 09/14/2022 Within the last year, have y ou been humiliated or emotionally abused in other ways by your partner or ex-partner? No Within the last year, have y ou been kicked, hit, slapped, or otherwise physically hurt by your partner or ex-partner? No 09/14/2022 Within the last year, have y ou been raped or forced to have any kind of sexual activity by your partner or ex-partner? No 09/14/2022 Social Connection and Isolat ion Panel [NHANES] Answer Date Recorded In a typical week, how many times do you talk on the phone with family, friends, or neighbors? Three times a week 09/14/2022 How often do you get togethe r with friends or relatives? Once a week 09/14/2022 How often do you attend chur or yazidism services? More than 4 times per year 09/14/2022 Do you belong to any clubs o r organizations such as taoism groups, unions, fraternal or athletic groups, or school groups? Yes 09/14/2022 How often do you attend meet ings of the clubs or organizations you belong to? More than 4 times per year 09/14/2022 Are you , , di vorced, , never , or living with a partner? 09/14/2022 AUDIT-C Answer Date Recorded Q1: How often do you have a drink containing alc ohol? 2-4 times a month 09/14/2022 Q2: How many drinks containi ng alcohol do you have on a typical day when you are drinking? 3 or 4 09/14/2022 Q3: How often do you have si x or more drinks on one occasion? Less than monthly 09/14/2022 Overall Financial Resource Strain (CARDIA) Answe r Date Recorded How hard is it for you to pa y for the very basics like food, housing, medical care, and heating? Not very hard 09/14/2022 [facility] of Occupat ional Health - Occupational Stress Questionnaire Answer Date Recorded Do you feel stress - tense, restless, nervous, or anxious, or unable to sleep at night because your mind is troubled all the time - these days? Very much 09/14/2022 Exercise Vital Sign Answer Date Recorde d On average, how many days pe r week do you engage in moderate to strenuous exercise (like a brisk walk)? 5 days 09/14/2022 On average, how many minutes do you engage in exercise at this level? 60 min 09/14/2022 Hunger Vital Sign Answer Date Recorded Within the past 12 months, y ou worried that your food would run out before you got the money to buy more. Never true 09/15/19 Within the past 12 months, t he food you bought just didn't last and you didn't have money to get more. Never true 09/14/2022 PRAPARE - Transportation Answer Date Re corded In the past 12 months, has l ack of transportation kept you from medical appointments or from getting medications? No 08/29 In the past 12 months, has l ack of transportation kept you from meetings, work, or from getting things needed for daily living? No 09/14/2022 Housing Stability Vital Sign Answer Sohail e Recorded In the last 12 months, was t here a time when you were not able to pay the mortgage or rent on time? No 09/14/2022 In the last 12 months, how many places have you lived? 1 09/14/2022 In the last 12 months, was t here a time when you did not have a steady place to sleep or slept in a group home (including now)? No 09/14/2022 Sex and Gender Information Value Date Recorded Sex Assigned at Male 09/08/2022 2:56 PM EDT Legal Sex Male 6:55 PM EDT Gender Identity Male 09/08/2022 2:56 PM EDT Sexual Orientation Straight 09/08/2022 2: 56 PM EDT documented as of this encounter Plan of Treatment Not on file documented as of this encounter Visit Diagnoses Diagnosis 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) documented in this encounter Care Teams Dusting And Brushing Machine Operator Relationship Specialty Start Date End Date Malcolm Cid MD [address] [facility] [address] [place] [address] PCP - General Family Medicine 07/29/22 Malcolm Cid MD [address] [facility] [address] [place] [address] PCP - [facility] 05/30/22Wednesday, BREE Marquez 112 [facility] [address] [place] [address] Licensed Practical Nurse Family Medicine 06/04/23 Jayne Del Valle, RN Licensed Practical Nurse Family Medicine 04/07/2404/30 Merry Paz LPN 05/19/24 documented as of this encounter
--- OUTSIDE RECORDS SUMMARY | 2024-07-29 20:18 | XMS_ITS | Encounter Summary ---
Author Organization [facility] Address [address] [place] [address] Care Team Providers Care Licensed Staff Mft Name Role Phone Malcolm Cid MD Primary Care Provider [phone] Malcolm Cid MD Unavailable Wednesday, Alma AQUINON Unavailable [phone] Jayne Del Valle RN Unavailable Merry Paz WHOLESALE BUYER Unavailable Unavailable Encounter Details Date Type Department Care Team (Late st Contact Info) Description 09/06/2023 Abstract [facility] [address] [facility] 110 [place] [id number] Malcolm Cid MD 112 [facility] 110 [place], [place] [phone] Social History Tobacco Use Types Packs/Day Years [...] How often do you attend chur or baptism services? More than 4 times per year 09/14/2022 Do you belong to any clubs o r organizations such as amish groups, unions, fraternal or athletic groups, or [...] care, and heating? Not very hard 09/14/2022 [facility] of Occupat ional Health - Occupational Stress [...] place to sleep or slept in a mcfp (including now)? No 09/14/2022 Sex and Gender [...] on filedocumented in this encounter Care Teams Licensed Staff Mft Relationship Specialty Start Date End Date Malcolm Cid MD [address] [facility] 110 [place] [address] PCP - General Family Medicine 07/29/22 Malcolm Cid MD [address] [place] [address] PCP - [facility] 05/30/22Wednesday, BREE Marquez [address] [place] [address] Licensed Practical Nurse Family Medicine 06/04/23 Jayne Del Valle, RN Licensed Practical Nurse Family Medicine 04/07/2404/30 Merry Paz LPN 05/19/24 documented as of this encounter
--- OUTSIDE RECORDS SUMMARY | 2024-07-29 20:18 | XMS_ITS | Encounter Summary ---
Author Organization [facility] Address [address] [place] [address] Care Team Providers Care Vocational Rehabilitation Technician Name Role Phone Malcolm Cid MD Primary Care Provider [phone] Malcolm Cid MD Unavailable Wednesday, Alma AQUINON Unavailable [phone] Jayne Del Valle RN Unavailable Merry Paz CANAL LOCK TENDER CHIEF OPERATOR Unavailable Unavailable Reason for Visit * Reason Onset Date Comments Med Refill 09/20/2023 Encounter Details Date Type Department Care Team (Late st Contact Info) Description 09/20/2023 Refill [facility] [address] [facility] [address] [place] [address] Marina Proctor, PA [address] [place] [address] 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 rheumatoid factor ([facility]/HCC) Social History Tobacco Use Types Packs/Day Years [...] How often do you attend chur or hindu services? More than 4 times per year 09/14/2022 Do you belong to any clubs o r organizations such as presybeterian groups, unions, fraternal or athletic groups, or [...] care, and heating? Not very hard 09/14/2022 [facility] [place] of Occupat ional Health - Occupational Stress [...] money to buy more. Never true 09/15/19 23 Within the past 12 months, t he [...] place to sleep or slept in a mcc (including now)? No 09/14/2022 Sex and Gender Information Value Date Recorded Sex Assigned at Male 09/08/2022 2:56 PM EDT Legal Sex Male 6:55 PM EDT Gender Identity Male 09/08/2022 2:56 PM EDT Sexual Orientation Straight 09/08/2022 2: 56 PM EDT documented as of this encounter Miscellaneous Notes * Telephone Encounter - [facility] - 09/20/2023 3:[address] Cid, no Percocet. Can come in for an appointment to discuss flare with Dr. Cid if needed. documented in this encounter Plan of Treatment Not on file documented as of this encounter Visit Diagnoses Diagnosis 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) documented in this encounter Care Teams Vocational Rehabilitation Technician Relationship Specialty Start Date End Date Malcolm Cid MD [address] [place] [address] [address] [place] [address] PCP - General Family Medicine 07/29/22 Malcolm Cid MD [address] [facility] 110 [place] [address] PCP - [facility] 05/30/22Wednesday, BREE Marquez [address] [facility] 110 [place] [address] Licensed Practical Nurse Family Medicine 06/04/23 Jayne Del Valle, RN Licensed Practical Nurse Family Medicine 04/07/2404/30 Merry Paz LPN 05/19/24 documented as of this encounter
--- OUTSIDE RECORDS SUMMARY | 2024-07-29 20:18 | XMS_ITS | Encounter Summary ---
Author Organization [facility] Address [address] [place] [address] Care Team Providers Care Electrical Design Technologist Name Role Phone Malcolm Cid MD Primary Care Provider [phone] Source Comments In the event this information is protected by the Federal Confidentiality of Alcohol and Drug AbusePatient Records regulations: The Federal rules restrict any use of the information to criminally investigate or prosecute any alcohol or drug abuse patient.[facility] Encounter Details Date Type Department Care Team (Late st Contact Info) Description 03/10/2019 Patient Msg Rheumatology [address] [place], [place] [id number] [place] [address] [place], [place] [phone] Previsit lab reminder Social History Tobacco Use Types Packs/Day Years Used Date Smoking Tobacco: Never Smokeless Tobacco: Current Chew PHQ-2 Answer Date Recorded PHQ-2 Score 3 01/12/2019 Sex and Gender Information Value Date Recorded [...] 10/03/2024 8:00 AM EDT Office Visit Rheumatology [address] [place] [address] [place] [address] [place] [address] Return in about 9 months (around 10/03/2024). documented as of this encounter Visit Diagnoses Not on filedocumented in this encounter Care Teams Electrical Design Technologist Relationship Specialty Start Date End Date Malcolm Cid MD PCP - General Family Medicine 01/07/15 documented as of this encounter
--- OUTSIDE RECORDS SUMMARY | 2024-07-29 20:18 | XMS_ITS ---
Author Organization [facility] Address [address] [place] [address] Care Team Providers Care Tire Buffer Name Role Phone Malcolm Cid MD Primary Care Provider [phone] Malcolm Cid MD Unavailable Merry Paz LPN Unavailable Unavailable Chronic Care Management (CCM) Status:Enrolled (Active) Start date:06/04/2023 Enrollment date:06/24/2023 Enrollment reason:Identified as high-risk Overview Please assess for Care Management needs. 06/24/23, 1:51 PM - AlmawednesdayBREE- Patient gives verbal consent to be enrolled in CCM Program and understands there could be a bill for this service. Did not speak of bill as this is not so with insurance. Case Team Name Relationship Phone Merry Paz LPN(Responsible Staff) Continued Care and Services Coordination
--- OUTSIDE RECORDS SUMMARY | 2024-07-29 20:18 | XMS_ITS | Encounter Summary ---
Author Organization [facility] Address [address] [place] [address] Care Team Providers Care Vertical Mill Operator Name Role Phone Malcolm Cid MD Primary Care Provider [phone] Source Comments In the event this information is protected by the Federal Confidentiality of Alcohol and Drug AbusePatient Records regulations: The Federal rules restrict any use of the information to criminally investigate or prosecute any alcohol or drug abuse patient.[facility] Encounter Details Date Type Department Care Team (Late st Contact Info) Description 02/27/2018 Patient Msg Rheumatology [address] [place] [address] [place] [address] [place], [place] [id number] March lab reminder Social History Tobacco Use Types [...] of Assessment Author No 04/26/2017 6:15 PM rOalia Hurtado RN * Do you have difficulty [...] 10/03/2024 8:00 AM EDT Office Visit Rheumatology [address] [place] [address] [place] [address] [place] [address] Return in about 9 months (around 10/03/2024). documented as of this encounter Visit Diagnoses Not on filedocumented in this encounter Care Teams Vertical Mill Operator Relationship Specialty Start Date End Date Malcolm Cid MD PCP - General Family Medicine 01/07/15 documented as of this encounter
--- OUTSIDE RECORDS SUMMARY | 2024-07-29 20:18 | XMS_ITS | Encounter Summary ---
Author Organization [facility] Address [address] [place] [address] Care Team Providers Care Counter Pocket Trimmer Name Role Phone Malcolm Cid MD Primary Care Provider [phone] Source Comments In the event this information is protected by the Federal Confidentiality of Alcohol and Drug AbusePatient Records regulations: The Federal rules restrict any use of the information to criminally investigate or prosecute any alcohol or drug abuse patient.[facility] Encounter Details Date Type Department Care Team (Late st Contact Info) Description 08/12/2018 Patient Msg Rheumatology [address] [place], [place] [id number] Provider, Ccf Dr Castro reply to your question Social History Tobacco Use Types Packs/Day Years [...] 10/03/2024 8:00 AM EDT Office Visit Rheumatology [address] [place], [place] [phone] [place] [address] [place] [address] Return in about 9 months (around 10/03/2024). documented as of this encounter Visit Diagnoses Not on filedocumented in this encounter Care Teams Counter Pocket Trimmer Relationship Specialty Start Date End Date Malcolm Cid MD PCP - General Family Medicine 01/07/15 documented as of this encounter
--- OUTSIDE RECORDS SUMMARY | 2024-07-29 20:18 | XMS_ITS | Encounter Summary ---
Author Organization [facility] Address [address] [place] [address] Care Team Providers Care Family Centered Specialist Name Role Phone Malcolm Cid MD Primary Care Provider +1- [phone] Source Comments In the event this information is protected by the Federal Confidentiality of Alcohol and Drug AbusePatient Records regulations: The Federal rules restrict any use of the information to criminally investigate or prosecute any alcohol or drug abuse patient.[facility] Encounter Details Date Type Department Care Team (Late st Contact Info) Description 07/05/2019 Patient Msg Rheumatology [address] [place] [address] Provider, Ccf Lab reminder from Dr Castro office Social History Tobacco [...] have Coronavirus / COVID-19? No / Unsure 06/06/2019 8:22 AM EDT documented as of this encounter Functional [...] 10/03/2024 8:00 AM EDT Office Visit Rheumatology [address] [place] [address] [place] [address] [place] [address] Return in about 9 months (around 10/03/2024). documented as of this encounter Visit Diagnoses Not on filedocumented in this encounter Care Teams Family Centered Specialist Relationship Specialty Start Date End Date Malcolm Cid MD PCP - General Family Medicine 01/07/15 documented as of this encounter
--- OUTSIDE RECORDS SUMMARY | 2024-07-29 20:18 | XMS_ITS | Encounter Summary ---
Author Organization [facility] Address [address] [place] [address] Care Team Providers Care Feather Sawyer Name Role Phone Malcolm Cid MD Primary Care Provider +1- [phone] Source Comments In the event this information is protected by the Federal Confidentiality of Alcohol and Drug AbusePatient Records regulations: The Federal rules restrict any use of the information to criminally investigate or prosecute any alcohol or drug abuse patient.[facility] Encounter Details Date Type Department Care Team (Late st Contact Info) Description 12/28/2018 Patient Msg Rheumatology [address] [place] [address] Provider, Ccf Update on insurance (Dr Castro office) Social History Tobacco Use Types Packs/Day Years [...] 10/03/2024 8:00 AM EDT Office Visit Rheumatology [address] [place] [address] [place] [address] [place] [address] Return in about 9 months (around 10/03/2024). documented as of this encounter Visit Diagnoses Not on filedocumented in this encounter Care Teams Feather Sawyer Relationship Specialty Start Date End Date Malcolm Cid MD PCP - General Family Medicine 01/07/15 documented as of this encounter
--- OUTSIDE RECORDS SUMMARY | 2024-07-29 20:18 | XMS_ITS | Encounter Summary ---
Author Organization [facility] Address [address] [place] [address] Care Team Providers Care University Intern Name Role Phone Malcolm Cid MD Primary Care Provider +1- [phone] Source Comments In the event this information is protected by the Federal Confidentiality of Alcohol and Drug AbusePatient Records regulations: The Federal rules restrict any use of the information to criminally investigate or prosecute any alcohol or drug abuse patient.[facility] Encounter Details Date Type Department Care Team (Late st Contact Info) Description 10/28/2018 Patient Msg Rheumatology [address] [place], [place] [address] Provider, Ccf Dr Castro message Social History Tobacco Use Types Packs/Day Years [...] Assessment Author No 04/26/2017 6:15 PM Oralia Hurtado, RN * Are you blind or do [...] 10/03/2024 8:00 AM EDT Office Visit Rheumatology [address] [place] [address] [place] [address] [place] [address] Return in about 9 months (around 10/03/2024). documented as of this encounter Visit Diagnoses Not on filedocumented in this encounter Care Teams University Intern Relationship Specialty Start Date End Date Malcolm Cid MD PCP - General Family Medicine 01/07/15 documented as of this encounter
--- OUTSIDE RECORDS SUMMARY | 2024-07-29 20:18 | XMS_ITS | Encounter Summary ---
Author Organization [facility] Address [address] [place] [address] Care Team Providers Care Threshing Operator Name Role Phone Malcolm Cid MD Primary Care Provider +1- [phone] Source Comments In the event this information is protected by the Federal Confidentiality of Alcohol and Drug AbusePatient Records regulations: The Federal rules restrict any use of the information to criminally investigate or prosecute any alcohol or drug abuse patient.[facility] Encounter Details Date Type Department Care Team (Late st Contact Info) Description 09/09/2018 Patient Msg Rheumatology [address] [place], [place] [id number] Provider, Ccf Reply Social History Tobacco Use Types Packs/Day [...] of Assessment Author No 04/26/2017 6:15 PM EST Oralia Segura RN * Are you blind or do [...] 10/03/2024 8:00 AM EDT Office Visit Rheumatology [address] [place] [address] [place] [address] [place] [address] Return in about 9 months (around 10/03/2024). documented as of this encounter Visit Diagnoses Not on filedocumented in this encounter Care Teams Threshing Operator Relationship Specialty Start Date End Date Malcolm Cid MD PCP - General Family Medicine 01/07/15 documented as of this encounter
--- OUTSIDE RECORDS SUMMARY | 2024-07-29 20:18 | XMS_ITS | Encounter Summary ---
Author Organization [facility] Address [address] [place] [address] Care Team Providers Care Ccna Name Role Phone Malcolm Cid MD Primary Care Provider +1- [phone] Source Comments In the event this information is protected by the Federal Confidentiality of Alcohol and Drug AbusePatient Records regulations: The Federal rules restrict any use of the information to criminally investigate or prosecute any alcohol or drug abuse patient.[facility] Encounter Details Date Type Department Care Team (Late st Contact Info) Description 11/25/2018 Patient Msg Rheumatology [address] [place], [place] [id number] [place] [address] [place] [address] December lab reminder Social History Tobacco Use Types [...] 10/03/2024 8:00 AM EDT Office Visit Rheumatology [address] [place] [address] [place] [address] [place] [address] Return in about 9 months (around 10/03/2024). documented as of this encounter Visit Diagnoses Not on filedocumented in this encounter Care Teams Ccna Relationship Specialty Start Date End Date Malcolm Cid MD PCP - General Family Medicine 01/07/15 documented as of this encounter
--- OUTSIDE RECORDS SUMMARY | 2024-07-29 20:18 | XMS_ITS | Encounter Summary ---
Author Organization [facility] Address [address] [place] [address] Care Team Providers Care Bag Machine Operator Name Role Phone Malcolm Cid MD Primary Care Provider +1- [phone] Source Comments In the event this information is protected by the Federal Confidentiality of Alcohol and Drug AbusePatient Records regulations: The Federal rules restrict any use of the information to criminally investigate or prosecute any alcohol or drug abuse patient.[facility] Encounter Details Date Type Department Care Team (Late st Contact Info) Description 04/22/2018 Patient Msg Rheumatology [address] [place], [place] [id number] [place] [address] [place], [place] [id number] Previsit lab reminder Social History Tobacco Use [...] 10/03/2024 8:00 AM EDT Office Visit Rheumatology [address] [place] [address] [place] [address] [place] [address] Return in about 9 months (around 10/03/2024). documented as of this encounter Visit Diagnoses Not on filedocumented in this encounter Care Teams Bag Machine Operator Relationship Specialty Start Date End Date Malcolm Cid MD PCP - General Family Medicine 01/07/15 documented as of this encounter
--- OUTSIDE RECORDS SUMMARY | 2024-07-29 20:18 | XMS_ITS | Patient Health Record ---
Author Organization [facility] Address [address] [place] [address] Care Team Providers Care Project Program Manager Name Role Phone Malcolm Cid MD Primary Care Provider Juan José Casey Unavailable [phone] Reason For Referral No Information Medications Medication SIG (Take, Route, Frequency, Duration) Notes Start Date End Date Status gabapentin Active oxyCODONE Active QUEtiapine Active traMADol Active ALPRAZolam Active doxycycline Active escitalopram Active colchicine Active Social History Tobacco Use: Social History Observation Description Date Details (start date - stop date) Never Smoker NA - NA Smoking History Question Answer Notes Smoking Status NonSmoker Problems Problem Type SNOMED Code ICD Code Onset Dates Problem Status W/U Status Risk Notes Problem Contusion of right knee (59013927353196946) Contusion of right knee, subsequent encounter (S80.01XD) Active confirmed Problem Enthesopathy of knee (75967057) Knee bursitis, right (M70.51) Active confirmed Problem [id number] Acute gout of right knee, 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) Active confirmed Problem Contusion of knee (92705488) Contusion of knee, right (S80.01XA) Inactive confirmed Problem Infected prepatellar bursa, right (M71.161) Inactive confirmed Plan Of Treatment Pending Test Test Name Order Date Cell count 02/19/2023 Crystals 02/19/2023 GRAM STAIN 02/19/2023 Work Slip Return to Work/ Full Duty 09/2023 Work Slip; Off work 02/19/2023 ANAEROBIC CULTURE 02/19/2023 AEROBIC CULTURE 02/19/2023 Insurance Providers Payer Name Payer Address Payer Phone Subscriber Number Group Number Insured Name Patient Relationship to Insured Coverage Start Date Coverage End Date [facility] [place] [address] [place] [address] [id number] TRU SALDIVAR Self - patient is the insured Medical (General) History Medical History History ICD Code Depression High Blood Pressure Anxiety Surgical History Surgery Date(Month/Year) Knee arthroscopy 01/2023 Shoulder surgery, left 03/2021
--- OUTSIDE RECORDS SUMMARY | 2024-07-29 20:18 | XMS_ITS | Encounter Summary ---
Author Organization [facility] Address [address] [place] [address] Care Team Providers Care Drawing Hand Name Role Phone Malcolm Cid MD Primary Care Provider +1- [phone] Source Comments In the event this information is protected by the Federal Confidentiality of Alcohol and Drug AbusePatient Records regulations: The Federal rules restrict any use of the information to criminally investigate or prosecute any alcohol or drug abuse patient.[facility] Encounter Details Date Type Department Care Team (Late st Contact Info) Description 07/29/2018 Patient Msg Rheumatology [address] [place], [place] [id number] [place] [address] [place], [place] [id number] September lab reminder Social History Tobacco Use Types [...] 10/03/2024 8:00 AM EDT Office Visit Rheumatology [address] [place] [address] [place] [address] [place] [address] Return in about 9 months (around 10/03/2024). documented as of this encounter Visit Diagnoses Not on filedocumented in this encounter Care Teams Drawing Hand Relationship Specialty Start Date End Date Malcolm Cid MD PCP - General Family Medicine 01/07/15 documented as of this encounter
--- OUTSIDE RECORDS SUMMARY | 2024-07-29 20:18 | XMS_ITS | Encounter Summary ---
Author Organization [facility] Address [address] [place] [address] Care Team Providers Care Lean Consultant Name Role Phone Malcolm Cid MD Primary Care Provider +1- [phone] Source Comments In the event this information is protected by the Federal Confidentiality of Alcohol and Drug AbusePatient Records regulations: The Federal rules restrict any use of the information to criminally investigate or prosecute any alcohol or drug abuse patient.[facility] Encounter Details Date Type Department Care Team (Late st Contact Info) Description 03/04/2018 Patient Msg Infectious Disease [address] [place], [place] [phone] Provider, Ccf Dr Castro reply Social History Tobacco Use Types Packs/Day Years [...] 10/03/2024 8:00 AM EDT Office Visit Rheumatology [address] [place] [address] [place] [address] [place] [address] Return in about 9 months (around 10/03/2024). documented as of this encounter Visit Diagnoses Not on filedocumented in this encounter Care Teams Lean Consultant Relationship Specialty Start Date End Date Malcolm Cid MD PCP - General Family Medicine 01/07/15 documented as of this encounter
--- OUTSIDE RECORDS SUMMARY | 2024-07-29 20:18 | XMS_ITS | Encounter Summary ---
Author Organization [facility] Address [address] [place] [address] Care Team Providers Care Second Butler Name Role Phone Malcolm Cid MD Primary Care Provider +1- [phone] Source Comments In the event this information is protected by the Federal Confidentiality of Alcohol and Drug AbusePatient Records regulations: The Federal rules restrict any use of the information to criminally investigate or prosecute any alcohol or drug abuse patient.[facility] Encounter Details Date Type Department Care Team (Late st Contact Info) Description 08/10/2018 Patient Msg Rheumatology [address] [place], [place] [phone] Provider, Ccf RE: Please reply back Social History Tobacco Use Types Packs/Day Years [...] 10/03/2024 8:00 AM EDT Office Visit Rheumatology [address] [place] [address] [place] [address] [place] [address] Return in about 9 months (around 10/03/2024). documented as of this encounter Visit Diagnoses Not on filedocumented in this encounter Care Teams Second Butler Relationship Specialty Start Date End Date Malcolm Cid MD PCP - General Family Medicine 01/07/15 documented as of this encounter
--- OUTSIDE RECORDS SUMMARY | 2024-07-29 20:18 | XMS_ITS | Encounter Summary ---
Author Organization [facility] Address [address] [place] [address] Care Team Providers Care Material Combiner Name Role Phone Malcolm Cid MD Primary Care Provider +1- [phone] Source Comments In the event this information is protected by the Federal Confidentiality of Alcohol and Drug AbusePatient Records regulations: The Federal rules restrict any use of the information to criminally investigate or prosecute any alcohol or drug abuse patient.[facility] Encounter Details Date Type Department Care Team (Late st Contact Info) Description 08/03/2018 Patient Msg Infectious Disease [address] [place], [place] [id number] Provider, Ccf RE: Dr Castro office- Message. Please Reply Social History Tobacco Use Types Packs/Day [...] 10/03/2024 8:00 AM EDT Office Visit Rheumatology [address] [place] [address] [place] [address] [place] [address] Return in about 9 months (around 10/03/2024). documented as of this encounter Visit Diagnoses Not on filedocumented in this encounter Care Teams Material Combiner Relationship Specialty Start Date End Date Malcolm Cid MD PCP - General Family Medicine 01/07/15 documented as of this encounter
--- OUTSIDE RECORDS SUMMARY | 2024-07-29 20:18 | XMS_ITS | Encounter Summary ---
Author Organization [facility] Address [address] [place] [address] Care Team Providers Care Psychology Professor Name Role Phone Malcolm Cdi MD Primary Care Provider +1- [phone] Source Comments In the event this information is protected by the Federal Confidentiality of Alcohol and Drug AbusePatient Records regulations: The Federal rules restrict any use of the information to criminally investigate or prosecute any alcohol or drug abuse patient.[facility] Encounter Details Date Type Department Care Team (Late st Contact Info) Description 03/10/2019 Patient Msg Rheumatology [address] [place], [place] [id number] [place] [address] [place], [place] [phone] April lab reminder Social History Tobacco Use Types [...] 10/03/2024 8:00 AM EDT Office Visit Rheumatology [address] [place] [address] [place] [address] [place] [address] Return in about 9 months (around 10/03/2024). documented as of this encounter Visit Diagnoses Not on filedocumented in this encounter Care Teams Psychology Professor Relationship Specialty Start Date End Date Malcolm Cid MD PCP - General Family Medicine 01/07/15 documented as of this encounter
--- OUTSIDE RECORDS SUMMARY | 2024-07-29 20:18 | XMS_ITS | Encounter Summary ---
Author Organization [facility] Address [address] [place] [address] Care Team Providers Care Director Of Quality Name Role Phone Malcolm Cid MD Primary Care Provider [phone] Malcolm Cid MD Unavailable Wednesday, Alma AQUINON Unavailable [phone] Jayne Del Valle RN Unavailable [phone] Merry Paz INDUSTRIAL YARD BRAKE COUPLER Unavailable Unavailable Reason for Visit * Reason Onset Date Comments Med Refill 10/01/2023 Encounter Details Date Type Department Care Team (Late st Contact Info) Description 10/01/2023 Refill [facility] [address] [facility] [address] [place] [address] Marina Proctor, [place] [address] [place] [address] [place] [address] 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 rheumatoid factor ([facility]/HCC) Social History Tobacco Use Types Packs/Day [...] How often do you attend chur or episcopal services? More than 4 times per year 09/14/2022 Do you belong to any clubs o r organizations such as jehovah's witness groups, unions, fraternal or athletic groups, or [...] care, and heating? Not very hard 09/14/2022 [facility] of Occupat ional Health - Occupational Stress [...] place to sleep or slept in a intermediate (including now)? No 09/14/2022 Sex and Gender [...] (CMS/HCC) documented in this encounter Care Teams Director Of Quality Relationship Specialty Start Date End Date Malcolm Cid MD [address] [facility] 110 [place] [address] PCP - General Family Medicine 07/29/22 Malcolm Cid MD [address] [facility] 110 [place] [address] PCP - [facility] 05/30/22Wednesday, BREE Marquez 112 [facility] [address] [place] [address] Licensed Practical Nurse Family Medicine 06/04/23 Jayne Del Valle, RN Licensed Practical Nurse Family Medicine 04/07/2404/30 Merry Paz LPN 05/19/24 documented as of this encounter
--- OUTSIDE RECORDS SUMMARY | 2024-07-29 20:18 | XMS_ITS | Encounter Summary ---
Author Organization [facility] Address [address] [place] [address] Care Team Providers Care Sign Writer Hand Name Role Phone Malcolm Cid MD Primary Care Provider +1- [phone] Source Comments In the event this information is protected by the Federal Confidentiality of Alcohol and Drug AbusePatient Records regulations: The Federal rules restrict any use of the information to criminally investigate or prosecute any alcohol or drug abuse patient.[facility] Encounter Details Date Type Department Care Team (Late st Contact Info) Description 12/27/2018 Patient Msg Rheumatology [address] [place], [place] [phone] Provider, Ccf reply Social History Tobacco Use Types Packs/Day [...] 10/03/2024 8:00 AM EDT Office Visit Rheumatology [address] [place] [address] [place] [address] [place] [address] Return in about 9 months (around 10/03/2024). documented as of this encounter Visit Diagnoses Not on filedocumented in this encounter Care Teams Sign Writer Hand Relationship Specialty Start Date End Date Malcolm Cid MD PCP - General Family Medicine 01/07/15 documented as of this encounter
--- OUTSIDE RECORDS SUMMARY | 2024-07-29 20:18 | XMS_ITS | Encounter Summary ---
Author Organization [facility] Address [address] [place] [address] Care Team Providers Care Digital Sales Director Name Role Phone Malcolm Cid MD Primary Care Provider +1- [phone] Source Comments In the event this information is protected by the Federal Confidentiality of Alcohol and Drug AbusePatient Records regulations: The Federal rules restrict any use of the information to criminally investigate or prosecute any alcohol or drug abuse patient.[facility] Encounter Details Date Type Department Care Team (Late st Contact Info) Description 10/28/2018 Patient Msg Rheumatology [address] [place], [place] [phone] Provider, Ccf Dr Castro reply Social History [...] 10/03/2024 8:00 AM EDT Office Visit Rheumatology [address] [place] [address] [place] [address] [place] [address] Return in about 9 months (around 10/03/2024). documented as of this encounter Visit Diagnoses Not on filedocumented in this encounter Care Teams Digital Sales Director Relationship Specialty Start Date End Date Malcolm Cid MD PCP - General Family Medicine 01/07/15 documented as of this encounter
--- OUTSIDE RECORDS SUMMARY | 2024-07-29 20:18 | XMS_ITS | Encounter Summary ---
Author Organization [facility] Address [address] [place] [address] Care Team Providers Care Clerk Analyst Name Role Phone Malcolm Cid MD Primary Care Provider +1- [phone] Source Comments In the event this information is protected by the Federal Confidentiality of Alcohol and Drug AbusePatient Records regulations: The Federal rules restrict any use of the information to criminally investigate or prosecute any alcohol or drug abuse patient.[facility] Encounter Details Date Type Department Care Team (Late st Contact Info) Description 01/24/2019 Patient Msg Rheumatology [address] [place] [address] Provider, Ccf Message from Dr Castro office Social History Tobacco [...] 10/03/2024 8:00 AM EDT Office Visit Rheumatology [address] [place] [address] [place] [address] [place] [address] Return in about 9 months (around 10/03/2024). documented as of this encounter Visit Diagnoses Not on filedocumented in this encounter Care Teams Clerk Analyst Relationship Specialty Start Date End Date Malcolm Cid MD PCP - General Family Medicine 01/07/15 documented as of this encounter
--- OUTSIDE RECORDS SUMMARY | 2024-07-29 20:18 | XMS_ITS | Encounter Summary ---
Author Organization [facility] Address [address] [place] [address] Care Team Providers Care Ash Worker Name Role Phone Malcolm Cid MD Primary Care Provider [phone] Malcolm Cid MD Unavailable Wednesday, Alma AQUINON Unavailable [phone] Jayne Del Valle RN Unavailable Merry Paz FINAL INSPECTOR MOTORCYLES Unavailable Unavailable Reason for Visit * Reason Onset Date Comments Med Refill 08/30/2023 Encounter Details Date Type Department Care Team (Late st Contact Info) Description 08/30/2023 Refill [facility] [address] [facility] 110 [place] [id number] Malcolm Cid MD [address] [facility] 110 [place], [place] [id number] Social History Tobacco Use Types Packs/Day Years [...] How often do you attend chur or gnosticism services? More than 4 times per year 09/14/2022 Do you belong to any clubs o r organizations such as orthodox groups, unions, fraternal or athletic groups, [...] care, and heating? Not very hard 09/14/2022 [facility] of Occupat ional Health - Occupational Stress [...] place to sleep or slept in a skilled nursing (including now)? No 09/14/2022 Sex and Gender [...] on filedocumented in this encounter Care Teams Ash Worker Relationship Specialty Start Date End Date Malcolm Cid MD [address] [place] [address] [place] [address] PCP - General Family Medicine 07/29/22 Malcolm Cid MD [address] [place] [address] [place] [address] PCP - [facility] 05/30/22Wednesday, BREE Marquez [address] [place] [address] Licensed Practical Nurse Family Medicine 06/04/23 Jayne Del Valle, DELMIS Licensed Practical Nurse Family Medicine 04/07/2404/30 Merry Paz LPN 05/19/24 documented as of this encounter
--- OUTSIDE RECORDS SUMMARY | 2024-07-29 20:18 | XMS_ITS | Encounter Summary ---
Author Organization [facility] Address [address] [place] [address] Care Team Providers Care Hadoop Consultant Name Role Phone Malcolm Cid MD Primary Care Provider [phone] Source Comments In the event this information is protected by the Federal Confidentiality of Alcohol and Drug AbusePatient Records regulations: The Federal rules restrict any use of the information to criminally investigate or prosecute any alcohol or drug abuse patient.[facility] Encounter Details Date Type Department Care Team (Late st Contact Info) Description 03/02/2018 Patient Msg Infectious Disease [address] [place], [place] [id number] Provider, Ccf Update rx's information Social History Tobacco Use Types Packs/Day Years [...] 10/03/2024 8:00 AM EDT Office Visit Rheumatology [address] [place] [address] [place] [address] [place] [address] Return in about 9 months (around 10/03/2024). documented as of this encounter Visit Diagnoses Not on filedocumented in this encounter Care Teams Hadoop Consultant Relationship Specialty Start Date End Date Malcolm Cid MD PCP - General Family Medicine 01/07/15 documented as of this encounter
--- OUTSIDE RECORDS SUMMARY | 2024-07-29 20:18 | XMS_ITS | Encounter Summary ---
Author Organization [facility] Address [address] [place] [address] Care Team Providers Care Recording Studio Internship Name Role Phone Malcolm Cid MD Primary Care Provider [phone] Source Comments In the event this information is protected by the Federal Confidentiality of Alcohol and Drug AbusePatient Records regulations: The Federal rules restrict any use of the information to criminally investigate or prosecute any alcohol or drug abuse patient.[facility] Encounter Details Date Type Department Care Team (Late st Contact Info) Description 01/02/2019 Patient Msg Rheumatology [address] [place] [address] Provider, Ccf Please call our financial counselor Social History Tobacco Use Types Packs/Day Years [...] 10/03/2024 8:00 AM EDT Office Visit Rheumatology [address] [place] [address] [place] [address] [place] [address] Return in about 9 months (around 10/03/2024). documented as of this encounter Visit Diagnoses Not on filedocumented in this encounter Care Teams Recording Studio Internship Relationship Specialty Start Date End Date Malcolm Cid MD PCP - General Family Medicine 01/07/15 documented as of this encounter
--- OUTSIDE RECORDS SUMMARY | 2024-07-29 20:18 | XMS_ITS | Encounter Summary ---
Author Organization [facility] Address [address] [place] [address] Care Team Providers Care Smash Hand Name Role Phone Malcolm Cid MD Primary Care Provider [phone] Malcolm Cid MD Unavailable Wednesday, Alma AQUINON Unavailable [phone] Jayne Del Valle RN Unavailable Merry Paz SHAVING MACHINE OPERATOR Unavailable Unavailable Reason for Visit * Reason Onset Date Comments Med Refill 09/15/2023 Encounter Details Date Type Department Care Team (Late st Contact Info) Description 09/15/2023 Refill [facility] [address] [facility] [address] [place] [address] Malcolm Cid MD [address] [place], [place] [id number] 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 rheumatoid factor ([facility]CC) Social History Tobacco Use Types Packs/Day [...] How often do you attend chur or confucianist services? More than 4 times per year 09/14/2022 Do you belong to any clubs o r organizations such as restorationist groups, unions, fraternal or athletic groups, or [...] care, and heating? Not very hard 09/14/2022 [facility] of Occupat ional Health - Occupational Stress [...] place to sleep or slept in a penitentiary (including now)? No 09/14/2022 Sex and Gender Information Value Date Recorded Sex Assigned at Male 09/08/2022 2:56 PM EDT Legal Sex Male 6:55 PM EDT Gender Identity Male 09/08/2022 2:56 PM EDT Sexual Orientation Straight 09/08/2022 2: 56 PM EDT documented as of this encounter Miscellaneous Notes * Telephone Encounter - Caitlyn Olivarez - 09/16/2023 11:31 AM EDT PT SCHEDULED * Telephone Encounter - ISIS Vera - 09/15/2023 5:15 PM EDT OARRS reviewed, Rx sent into patient's pharmacy. Please help pt get set up for appt with Dr. Cid within the next month for controlled med follow up. * Telephone Encounter - Roseanna Elmore - 09/15/2023 3:18 PM EDT [facility] documented in this encounter Plan of Treatment Not on file documented as of this encounter Visit Diagnoses Diagnosis 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 rheumatoid factor ([facility]) documented in this encounter Care Teams Smash Hand Relationship Specialty Start Date End Date Malcolm Cid MD [address] [place] [address] PCP - General Family Medicine 07/29/22 Malcolm Cid MD [address] [place] [address] [facility]CP - [facility] 05/30/22Wednesday, BREE Marquez [address] [place] [address] Licensed Practical Nurse Family Medicine 06/04/23 Jayne Del Valle, DELMIS Licensed Practical Nurse Family Medicine 04/07/2404/30 Merry Paz LPN 05/19/24 documented as of this encounter
--- OUTSIDE RECORDS SUMMARY | 2024-07-29 20:18 | XMS_ITS | Encounter Summary ---
Author Organization [facility] Address [address] [place] [address] Care Team Providers Care Foot Piece Assembler Name Role Phone Malcolm Cid MD Primary Care Provider [phone] Source Comments In the event this information is protected by the Federal Confidentiality of Alcohol and Drug AbusePatient Records regulations: The Federal rules restrict any use of the information to criminally investigate or prosecute any alcohol or drug abuse patient.[facility] Encounter Details Date Type Department Care Team (Late st Contact Info) Description 03/16/2018 Patient Msg Infectious Disease [address] [place], [place] [id number] Provider, Ccf RE: Dr Castro reply- please answer message below. Social History Tobacco Use Types Packs/Day Years [...] 10/03/2024 8:00 AM EDT Office Visit Rheumatology [address] [place] [address] [place] [address] [place] [address] Return in about 9 months (around 10/03/2024). documented as of this encounter Visit Diagnoses Not on filedocumented in this encounter Care Teams Foot Piece Assembler Relationship Specialty Start Date End Date Malcolm Cid MD PCP - General Family Medicine 01/07/15 documented as of this encounter
--- OUTSIDE RECORDS SUMMARY | 2024-07-29 20:18 | XMS_ITS | Encounter Summary ---
Author Organization [facility] Address [address] [place] [address] Care Team Providers Care Shot Lighter Name Role Phone Malcolm Cid MD Primary Care Provider [phone] Malcolm Cid MD Unavailable Wednesday, Alma AQUINON Unavailable [phone] Jayne Del Valle RN Unavailable [phone] Merry Paz MECHANICAL ENGINEERING TEACHER Unavailable Unavailable Encounter Details Date Type Department Care Team (Late st Contact Info) Description 08/23/2023 Abstract [facility] [address] [facility] [address] [place] [id number] Malcolm Cid MD 112 [facility] 110 [place], [place] [id number] Social History Tobacco Use Types Packs/Day Years [...] How often do you attend chur or hoahaoism services? More than 4 times per year 09/14/2022 Do you belong to any clubs o r organizations such as religious groups, unions, fraternal or athletic groups, or [...] care, and heating? Not very hard 09/14/2022 [facility] of Occupat ional Health - Occupational Stress [...] place to sleep or slept in a jail (including now)? No 09/14/2022 Sex and Gender [...] on filedocumented in this encounter Care Teams Shot Lighter Relationship Specialty Start Date End Date Malcolm Cid MD [address] [facility] [address] [place] [address] PCP - General Family Medicine 07/29/22 Malcolm Cid MD [address] [place] [address] PCP - [facility] 05/30/22Wednesday, BREE Marquez [address] [place] [address] Licensed Practical Nurse Family Medicine 06/04/23 Jayne Del Valle, RN Licensed Practical Nurse Family Medicine 04/07/2404/30 Merry Paz LPN 05/19/24 documented as of this encounter
--- OUTSIDE RECORDS SUMMARY | 2024-07-29 20:18 | XMS_ITS | Clinical Summary ---
Author Organization [facility] Address [address] [place] [address] Care Team Providers Care Convex Grinder Operator Name Role Phone Malcolm Cid MD Primary Care Provider [phone] Allergies No known active allergies Medications gabapentin (NEURONTIN) 100 MG capsuleIndicati ons:states takes it in the AM and afternoon Take 100 mg by mouth 2 times daily Indications: states takes it in the AM and afternoon Active gabapentin (NEURONTIN) 300 MG capsule Take 300 mg by mouth nightly Active colchicine (COLCRYS) 0.6 MG tablet Take 1 tablet by mouth daily 30 tablet 0 5 Active methotrexate (RHEUMATREX) 2.5 MG chemo tablet Take 20 mg by mouth once a week Active febuxostat (ULORIC) 40 MG TABS tablet Take 120 mg by mouth daily Active folic acid (FOLVITE) 1 MG tablet Take 1 mg by mouth daily Active Active Problems Problem Noted Date Diagnosed Date Polyarthritis 2015 Anemia 2015 Hyponatremia 2015 Gout DDD (degenerative disc disease), cervical Vasovagal syncope Resolved Problems Problem Noted Date Diagnosed Date Resolved Date Syncope 01/02/2020 01/02/2020 Family History Medical History Relation Name Comments COPD Father COPD Mother Relation Name Status Comments Father Alive Mother Alive Social History Tobacco Use Types Packs/Day Years Used Date Smoking Tobacco: Never Smokeless Tobacco: Current Chew Alcohol Use Standard Drinks/Week Comments Yes 0 (1 standard drink = 0.6 oz pure alcohol) rarely; last drink was 2 glassses of wine Sex and Gender Information Value Date Recorded Sex Assigned at Not on file Legal Sex Male 6:11 PM EST Gender Identity Not on file Sexual Orientation Not on file Last Filed Vital Signs Vital Sign Reading Time Taken Comments Blood Pressure 135/85 07/12/2018 8:22 PM EDT Pulse 110 07/12/2018 8:22 PM EDT Temperature 36.5 C (97.7 F) 07/12/2018 8:22 PM EDT Respiratory Rate 20 07/12/2018 8:22 PM EDT Oxygen Saturation 99% 07/12/2018 8:22 PM EDT Inhaled Oxygen Concentration - - Weight 90.7 kg (200 lb) 07/12/2018 8:22 PM EDT Height 190.5 cm (6' 3 ) 07/12/2018 8:22 PM EDT Body Mass Index 25 07/12/2018 8:22 PM EDT Plan of Treatment Health Maintenance Due Date Last Done Comments Depression Screen 2002 Varicella vaccine (1 of 2 - 13+ 2-dose series) 2003 HIV screen 2005 Hepatitis C screen 02/26/2008 DTaP/Tdap/Td vaccine (1 - Tdap) 2009 Hepatitis B vaccine (1 of 3 - 19+ 3-dose series) 2009 COVID-19 Vaccine (1 - 2023-2 5 season) 2023 Flu vaccine (Season Ended) 2024 HPV vaccine Aged Out No longer eligi ble based on patient's age to complete this topic Hepatitis A vaccine Aged Out No longe r eligible based on patient's age to complete this topic Hib vaccine Aged Out No longer eligi ble based on patient's age to complete this topic Meningococcal (ACWY) vaccine Aged Out No longer eligible based on patient's age to complete this topic Meningococcal B vaccine Aged Out No l onger eligible based on patient's age to complete this topic Pneumococcal 0-49 years Vaccine Aged Out No longer eligible based on patient's age to complete this topic Polio vaccine Aged Out No longer elig ible based on patient's age to complete this topic [facility] Subscriber Plan / Payer (Ef fective 2018-Present) Name:Kam Wrayn Relation to Subscriber:Self Name:Nick Wray Payer ID:Not on file Type:Not on file Address: [address] [employer] Advance Directives * Full Code (Latest Code Status on File) Date Activated Date Inactivated Comments 04/26/2015 11:58 PM 04/28/2015 7:53 PM * Full Code Date Activated Date Inactivated Comments 02/24/2015 8:57 PM 02/28/2015 4:48 PM Care Teams Convex Grinder Operator Relationship Specialty Start Date End Date Malcolm Cid MD PCP - General 02/24/15
--- OUTSIDE RECORDS SUMMARY | 2024-07-29 20:18 | XMS_ITS | Encounter Summary ---
Author Organization [facility] Address [address] [place] [address] Care Team Providers Care Zig Zag Stitcher Name Role Phone Malcolm Cid MD Primary Care Provider [phone] Source Comments In the event this information is protected by the Federal Confidentiality of Alcohol and Drug AbusePatient Records regulations: The Federal rules restrict any use of the information to criminally investigate or prosecute any alcohol or drug abuse patient.[facility] Encounter Details Date Type Department Care Team (Late st Contact Info) Description 11/12/2019 Patient Msg Rheumatology [address] [place], [place] [id number] [place] [address] [place], [place] [id number] Lab reminder Social History Tobacco Use Types Packs/Day Years Used Date Smoking Tobacco: Never Smokeless Tobacco: Current Chew PHQ-2 Answer Date Recorded PHQ-2 score 6 11/09/2019 Sex and Gender Information Value Date Recorded Sex Assigned at Male 11/09/2019 12:50 PM EDT Legal Sex Male 3:20 PM EST Gender Identity Male 11/09/2019 12:50 PM EDT Sexual Orientation Straight 11/09/2019 12 :50 PM EDT COVID-19 Exposure Response Date Recorded In the last month, have you been in contact with someone who was confirmed or suspected to have Coronavirus / COVID-19? Unable to assess 11/10/2019 10:42 AM EDT documented as of this encounter [...] 10/03/2024 8:00 AM EDT Office Visit Rheumatology [address] [place] [address] [place] [address] [place] [address] Return in about 9 months (around 10/03/2024). documented as of this encounter Visit Diagnoses Not on filedocumented in this encounter Care Teams Zig Zag Stitcher Relationship Specialty Start Date End Date Malcolm Cid MD PCP - General Family Medicine 01/07/15 documented as of this encounter
--- OUTSIDE RECORDS SUMMARY | 2024-07-29 20:18 | XMS_ITS | Encounter Summary ---
Author Organization [facility] Address [address] [place] [address] Care Team Providers Care Wheel Inspector Name Role Phone Malcolm Cid MD Primary Care Provider [phone] Source Comments In the event this information is protected by the Federal Confidentiality of Alcohol and Drug AbusePatient Records regulations: The Federal rules restrict any use of the information to criminally investigate or prosecute any alcohol or drug abuse patient.[facility] Encounter Details Date Type Department Care Team (Late st Contact Info) Description 02/11/2018 Patient Msg Rheumatology [address] [place] [address] Provider, Ccf response - Dr Castro Social History Tobacco Use Types Packs/Day Years [...] 10/03/2024 8:00 AM EDT Office Visit Rheumatology [address] [place] [address] [place] [address] [place] [address] Return in about 9 months (around 10/03/2024). documented as of this encounter Visit Diagnoses Not on filedocumented in this encounter Care Teams Wheel Inspector Relationship Specialty Start Date End Date Malcolm Cid MD PCP - General Family Medicine 01/07/15 documented as of this encounter
--- OUTSIDE RECORDS SUMMARY | 2024-07-29 20:19 | XMS_ITS | Encounter Summary ---
Author Organization [facility] Address [facility] [place] [address] Care Team Providers Care Oxygen Therapy Teacher Name Role Phone Malcolm Cid MD Primary Care Provider [phone] Source Comments In the event this information is protected by the Federal Confidentiality of Alcohol and Drug AbusePatient Records regulations: The Federal rules restrict any use of the information to criminally investigate or prosecute any alcohol or drug abuse patient.[facility] Encounter Details Date Type Department Care Team (Late st Contact Info) Description 11/29/2020 Get Medical Advice Kidney Medicine [address] [place], [place] [id number] Madonna Serrano, GANG BORE OPERATOR.SPECIMEN PROCESSOR [address] [place] [address] RE: Test Result Question Social History Tobacco Use Types Packs/Day Years Used Date Smoking Tobacco: Never Smokeless Tobacco: Current Chew PHQ-2 Answer Date Recorded PHQ-2 score 3 08/19/2020 Area Deprivation Index Answer Date Adis rded National Score (1-100), lower number is lower ri sk Not on file 02/05/2020 State Score (1-10), lower number is lower risk N ot on file 02/05/2020 Data from: https://www.neighborhoodatlas.[facility]/. Last address used for calculation Not on [...] have Coronavirus / COVID-19? No / Unsure 11/29/2020 9:23 AM EDT documented as of this encounter [...] 10/03/2024 8:00 AM EDT Office Visit Rheumatology [address] [place], [place] [phone] [place] [address] [place], [place] [id number] Return in about 9 months (around 10/03/2024). documented as of this encounter Visit Diagnoses Not on filedocumented in this encounter Care Teams Oxygen Therapy Teacher Relationship Specialty Start Date End Date Malcolm Cid MD PCP - General Family Medicine 01/07/15 documented as of this encounter
--- OUTSIDE RECORDS SUMMARY | 2024-07-29 20:19 | XMS_ITS | Encounter Summary ---
Author Organization [facility] Address [address] [place] [address] Care Team Providers Care Data Developer Name Role Phone Malcolm Cid MD Primary Care Provider [phone] Malcolm Cid MD Unavailable Wednesday, Alma AQUINON Unavailable [phone] Jayne Del Valle RN Unavailable [phone] Merry Paz LPN Unavailable Unavailable Encounter Details Date Type Department Care Team (Late st Contact Info) Description 05/10/2023 Orders Only [facility] [address] [place] [address] [place] [address] A, Unknown Practice [address] [place] [address] Social History Tobacco Use Types Packs/Day Years [...] How often do you attend chur or yarsanism services? More than 4 times per year 09/14/2022 Do you belong to any clubs o r organizations such as orthodoxy groups, unions, fraternal or athletic groups, or [...] care, and heating? Not very hard 09/14/2022 [facility] of Occupat ional Health - Occupational [...] on file documented as of this encounter Procedures Procedure Name Priority Date/Time Associated Diagnosis Comments ELECTROCARDIOGRAM REPORT Routine 024 1:03 PM EST documented in this encounter Results * Electrocardiogram Report (05/08/2023 1:03 PM EST) us Unknown Practice A IN CLINIC/BEDSIDE ORDERABLES Final Result documented in this encounter Visit Diagnoses Not on filedocumented in this encounter Care Teams Data Developer Relationship Specialty Start Date End Date Malcolm Cid MD [address] [facility] [address] [place] [address] PCP - General Family Medicine 07/29/22 Malcolm Cid MD [address] [facility] [address] [place] [address] PCP - [facility] 05/30/22Wednesday, BREE Marquez [address] [place], [place] [address] Licensed Practical Nurse Family Medicine 06/04/23 Jayne Del Valle, DELMIS Licensed Practical Nurse Family Medicine 04/07/2404/30 Merry Paz LPN 05/19/24 documented as of this encounter
--- OUTSIDE RECORDS SUMMARY | 2024-07-29 20:19 | XMS_ITS | Encounter Summary ---
Author Organization [facility] Address [address] [place] [address] Care Team Providers Care Crew Lead Name Role Phone Malcolm Cid MD Primary Care Provider [phone] Malcolm Cid MD Unavailable Wednesday, Alma AQUINON Unavailable [phone] Jayne Del Valle RN Unavailable Merry Paz PHOTONICS TECHNICIAN Unavailable Unavailable Encounter Details Date Type Department Care Team (Late st Contact Info) Description 03/09/2023 Abstract [facility] [address] [facility] 110 [place] [address] Malcolm Cid MD 112 [facility] 110 [place], [place] [address] Social History Tobacco Use Types Packs/Day Years Used Date Smoking Tobacco: Never Smokeless Tobacco: Never Alcohol Use Standard Drinks/Week Comments Yes 2 (1 standard drink = 0.6 oz pure alcohol) Caffeine intake: 1-2 cups per day soda/pop Humiliation, Afraid, Rape, and Kick questionnair e [...] How often do you attend chur or taoism services? More than 4 times per year 09/14/2022 Do you belong to any clubs o r organizations such as scientologist groups, unions, fraternal or athletic groups, or [...] care, and heating? Not very hard 09/14/2022 [facility] of Occupat ional Health - Occupational [...] place to sleep or slept in a half-way (including now)? No 09/14/2022 Sex and Gender [...] on filedocumented in this encounter Care Teams Crew Lead Relationship Specialty Start Date End Date Malcolm Cid MD [address] [place] [address] PCP - General Family Medicine 07/29/22 Malcolm Cid MD [address] [place] [address] PCP - [facility] 05/30/22Wednesday, BREE Marquez [address] [place] [address] Licensed Practical Nurse Family Medicine 06/04/23 Jayne Del Valle, RN Licensed Practical Nurse Family Medicine 04/07/2404/30 Merry Paz LPN 05/19/24 documented as of this encounter
--- OUTSIDE RECORDS SUMMARY | 2024-07-29 20:19 | XMS_ITS | Encounter Summary ---
Author Organization [facility] Address [address] [place] [address] Care Team Providers Care Route Delivery Manager Name Role Phone Malcolm Cid MD Primary Care Provider [phone] Source Comments In the event this information is protected by the Federal Confidentiality of Alcohol and Drug AbusePatient Records regulations: The Federal rules restrict any use of the information to criminally investigate or prosecute any alcohol or drug abuse patient.[facility] Encounter Details Date Type Department Care Team (Late st Contact Info) Description 08/19/2020 Patient Msg Rheumatology [address] [place], [place] [phone] [place] [address] [place] [address] September lab reminder Social History Tobacco Use Types Packs/Day Years Used Date Smoking Tobacco: Never Smokeless Tobacco: Current Chew PHQ-2 Answer Date Recorded PHQ-2 score 3 08/19/2020 Area Deprivation Index Answer Date Adis rded National Score (1-100), lower number is lower ri sk Not on file 02/05/2020 State Score (1-10), lower number is lower risk N ot on file 02/05/2020 Data from: https://www.neighborhoodatlas.[facility]/. Last address used for calculation [...] have Coronavirus / COVID-19? No / Unsure 08/19/2020 1:37 PM EDT documented as of this encounter [...] 10/03/2024 8:00 AM EDT Office Visit Rheumatology [address] [place], [place] [phone] [place] [address] [place], [place] [phone] Return in about 9 months (around 10/03/2024). documented as of this encounter Visit Diagnoses Not on filedocumented in this encounter Care Teams Route Delivery Manager Relationship Specialty Start Date End Date Malcolm Cid MD PCP - General Family Medicine 01/07/15 documented as of this encounter
--- OUTSIDE RECORDS SUMMARY | 2024-07-29 20:19 | XMS_ITS | Encounter Summary ---
Author Organization [facility] Address [address] [place] [address] Care Team Providers Care Automation Consultant Name Role Phone Malcolm Cid MD Primary Care Provider [phone] Source Comments In the event this information is protected by the Federal Confidentiality of Alcohol and Drug AbusePatient Records regulations: The Federal rules restrict any use of the information to criminally investigate or prosecute any alcohol or drug abuse patient.[facility] Encounter Details Date Type Department Care Team (Late st Contact Info) Description 08/14/2022 Patient Msg Rheumatology [address] [place], [place] [id number] [place] [address] [place] [address] Previsit lab reminder Social History Tobacco Use Types Packs/Day Years Used Date Smoking Tobacco: Never Smokeless Tobacco: Current Chew PHQ-2 Answer Date Recorded PHQ-2 score 4 08/13/2022 Area Deprivation Index Answer Date Adis rded National Score (1-100), lower number is lower ri sk 87 08/14/2022 State Score (1-10), lower number is lower risk 8 08/14/2022 Data from: https://www.neighborhoodatlas.[facility]/. Last address used for calculation Thong SALDAÑA 08/14/2022 Sex and Gender Information Value Date Recorded [...] of Assessment Author No 04/26/2017 6:15 PM Sa kianna Hurtado RN documented as of this encounter [...] 10/03/2024 8:00 AM EDT Office Visit Rheumatology [address] [place], [place] [id number] [place] [address] [place], [place] [id number] Return in about 9 months (around 10/03/2024). documented as of this encounter Visit Diagnoses Not on filedocumented in this encounter Care Teams Automation Consultant Relationship Specialty Start Date End Date Malcolm Cid MD PCP - General Family Medicine 01/07/15 documented as of this encounter
--- OUTSIDE RECORDS SUMMARY | 2024-07-29 20:19 | XMS_ITS | Encounter Summary ---
Author Organization [facility] Address [address] [place] [address] Care Team Providers Care Drupal Programmer Name Role Phone Malcolm Cid MD Primary Care Provider [phone] Malcolm Cid MD Unavailable Wednesday, Alma AQUINON Unavailable Jayne Del Valle RN Unavailable Merry Paz SPLITTING MACHINE OPERATOR Unavailable Unavailable Encounter Details Date Type Department Care Team (Late st Contact Info) Description 2023 Abstract [facility] [address] [facility] 110 [place] [id number] Malcolm Cid MD 112 [facility] 110 [place], [place] [id number] Social History Tobacco Use Types Packs/Day Years [...] How often do you attend chur or buddhist services? More than 4 times per year 09/14/2022 Do you belong to any clubs o r organizations such as denominational groups, unions, fraternal or athletic groups, or [...] care, and heating? Not very hard 09/14/2022 [facility] - Occupational [...] place to sleep or slept in a usp (including now)? No 09/14/2022 Sex and Gender [...] on filedocumented in this encounter Care Teams Drupal Programmer Relationship Specialty Start Date End Date Malcolm Cid MD [address] [place] [address] PCP - General Family Medicine 07/29/22 Malcolm Cid MD [address] [place] [address] PCP - [facility] 05/30/22Wednesday, BREE Marquez [address] [place] [address] Licensed Practical Nurse Family Medicine 06/04/23 Jayne Del Valle, RN Licensed Practical Nurse Family Medicine 04/07/2404/30 Merry Paz LPN 05/19/24 documented as of this encounter
--- OUTSIDE RECORDS SUMMARY | 2024-07-29 20:19 | XMS_ITS | Encounter Summary ---
Author Organization [facility] Address [address] [place] [address] Care Team Providers Care Engineering Vice President Name Role Phone Malcolm Cid MD Primary Care Provider [phone] Malcolm Cid MD Unavailable Wednesday, Alma AQUINON Unavailable [phone] Jayne Del Valle RN Unavailable [phone] Merry Paz PAINTING MACHINE OPERATOR Unavailable Unavailable Encounter Details Date Type Department Care Team (Late st Contact Info) Description 05/11/2023 Abstract [facility] [address] [facility] 110 [place] [id number] Malcolm Cid MD 112 [facility] 110 [place], [place] [id number] Social History Tobacco Use Types Packs/Day Years [...] How often do you attend chur or lutheran services? More than 4 times per year 09/14/2022 Do you belong to any clubs o r organizations such as hindu groups, unions, fraternal or athletic groups, or [...] care, and heating? Not very hard 09/14/2022 [facility] - Occupational [...] place to sleep or slept in a snf (including now)? No 09/14/2022 Sex and Gender [...] on filedocumented in this encounter Care Teams Engineering Vice President Relationship Specialty Start Date End Date Malcolm Cid MD [address] [facility] 110 [place] [address] PCP - General Family Medicine 07/29/22 Mlacolm Cid MD [address] [place] [address] PCP - [facility] 05/30/22Wednesday, BREE Marquez [address] [place] [address] Licensed Practical Nurse Family Medicine 06/04/23 Jayne Del Valle, RN Licensed Practical Nurse Family Medicine 04/07/2404/30 Merry Paz LPN 05/19/24 documented as of this encounter
--- OUTSIDE RECORDS SUMMARY | 2024-07-29 20:19 | XMS_ITS | Encounter Summary ---
Author Organization [facility] Address [address] [place] [address] Care Team Providers Care Information Technology Technician Name Role Phone Malcolm Cid MD Primary Care Provider [phone] Malcolm Cid MD Unavailable Wednesday, Alma AQUINON Unavailable Jayne Del Valle RN Unavailable [phone] Merry Paz BLOCK HANDLER Unavailable Unavailable Encounter Details Date Type Department Care Team (Late st Contact Info) Description 06/10/2023 Orders Only [facility] [address] [place] [address] Unallocated, Noms Provider, [address] [place], [place] [address] Social History Tobacco Use Types Packs/Day Years [...] How often do you attend chur or druze services? More than 4 times per year 09/14/2022 Do you belong to any clubs o r organizations such as latter-day groups, unions, fraternal or athletic groups, or [...] care, and heating? Not very hard 09/14/2022 [facility] - Occupational [...] place to sleep or slept in a senior living (including now)? No 09/14/2022 Sex and Gender [...] on filedocumented in this encounter Care Teams Information Technology Technician Relationship Specialty Start Date End Date Malcolm Cid MD [address] [facility] 110 [place] [address] PCP - General Family Medicine 07/29/22 Malcolm Cid MD [address] [place] [address] PCP - [facility] 05/30/22Wednesday, BREE Marquez [address] [place] [address] Licensed Practical Nurse Family Medicine 06/04/23 Jayne Del Valle, RN Licensed Practical Nurse Family Medicine 04/07/2404/30 Merry Paz LPN 05/19/24 documented as of this encounter
--- OUTSIDE RECORDS SUMMARY | 2024-07-29 20:19 | XMS_ITS | Encounter Summary ---
Author Organization [facility] Address [address] [place] [address] Care Team Providers Care Senior Systems Architect Name Role Phone Malcolm Cid MD Primary Care Provider [phone] Malcolm Cid MD Unavailable Wednesday, Alma AQUINON Unavailable [phone] Jayne Del Valle RN Unavailable [phone] Merry Paz SHAREPOINT ARCHITECT Unavailable Unavailable Reason for Visit * Reason Onset Date Comments Med Refill 03/16/2023 Tr[facility] Encounter Details Date Type Department Care Team (Late st Contact Info) Description 03/16/2023 Refill [facility] [address] [facility] 110 [place] [phone] Malcolm Cid MD [address] [facility] 110 [place] [address] 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) Social History Tobacco Use Types Packs/Day Years [...] any clubs o r organizations such as episcopal groups, unions, fraternal or athletic groups, or [...] care, and heating? Not very hard 09/14/2022 [facility] - Occupational Stress [...] place to sleep or slept in a correction (including now)? No 09/14/2022 Sex and Gender Information Value Date Recorded Sex Assigned at Male 09/08/2022 2:56 PM EDT Legal Sex Male 6:55 PM EDT Gender Identity Male 09/08/2022 2:56 PM EDT Sexual Orientation Straight 09/08/2022 2: 56 PM EDT documented as of this encounter Miscellaneous Notes * Telephone Encounter - [facility] - 03/16/2023 11:28 AM EST OARRS reviewed. Please let pt know that I did send in a refill for him of the Percocet. However, he has gotten refills on this from multiple providers in the last month and he needs to only get this from one provider. This helps prevent medication errors and decreases risk for potential abuse of the medication. Heis only to get this from our office from now on or we will not be able to provide him with additiona l refills. Also needs follow up appt for controlled meds in April. documented in this encounter Plan of Treatment Not on file documented as of this encounter Visit Diagnoses Diagnosis 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 rheumatoid factor ([facility]) documented in this encounter Care Teams Senior Systems Architect Relationship Specialty Start Date End Date Malcolm Cid MD [address] [place] [address] PCP - General Family Medicine 07/29/22 Malcolm Cid MD [address] [place] [address] PCP - [facility] 05/30/22WednesdayAlma LPN [address] [place] [address] Licensed Practical Nurse Family Medicine 06/04/23 Jayne Del Valle, RN Licensed Practical Nurse Family Medicine 04/07/2404/30 Merry Paz LPN 05/19/24 documented as of this encounter
--- OUTSIDE RECORDS SUMMARY | 2024-07-29 20:19 | XMS_ITS | Encounter Summary ---
Author Organization [facility] Address [address] [place] [address] Care Team Providers Care Filtration Operator Name Role Phone Malcolm Cid MD Primary Care Provider [phone] Source Comments In the event this information is protected by the Federal Confidentiality of Alcohol and Drug AbusePatient Records regulations: The Federal rules restrict any use of the information to criminally investigate or prosecute any alcohol or drug abuse patient.[facility] Encounter Details Date Type Department Care Team (Late st Contact Info) Description 03/08/2023 Patient Msg Rheumatology [address] [place], [place] [phone] [place] [address] [place], [place] [id number] Previsit lab reminder Social History Tobacco Use Types Packs/Day Years Used Date Smoking Tobacco: Never Smokeless Tobacco: Current Chew PHQ-2 Answer Date Recorded PHQ-2 score 4 08/13/2022 Area Deprivation Index Answer Date Adis rded National Score (1-100), lower number is lower ri sk 87 08/14/2022 State Score (1-10), lower number is lower risk 8 08/14/2022 Data from: https://www.neighborhoodatlas.[facility]/. Last address used for calculation Thong [...] 10/03/2024 8:00 AM EDT Office Visit Rheumatology [address] [place], [place] [address] [place] [address] [place], [place] [address] Return in about 9 months (around 10/03/2024). documented as of this encounter Visit Diagnoses Not on filedocumented in this encounter Care Teams Filtration Operator Relationship Specialty Start Date End Date Malcolm Cid MD PCP - General Family Medicine 01/07/15 documented as of this encounter
--- OUTSIDE RECORDS SUMMARY | 2024-07-29 20:19 | XMS_ITS | Encounter Summary ---
Author Organization [facility] Address [address] [place] [address] Care Team Providers Care Rehabilitation Medicine Physician Name Role Phone Malcolm Cid MD Primary Care Provider [phone] Source Comments In the event this information is protected by the Federal Confidentiality of Alcohol and Drug AbusePatient Records regulations: The Federal rules restrict any use of the information to criminally investigate or prosecute any alcohol or drug abuse patient.[facility] Encounter Details Date Type Department Care Team (Late st Contact Info) Description 09/08/2023 Patient Msg Pediatrics [address] [address] [place] [address] Provider, [facility] Rheumatology Appointment Cancellation Social History Tobacco Use Types Packs/Day Years Used Date Smoking Tobacco: Never Smokeless Tobacco: Current Chew PHQ-2 Answer Date Recorded PHQ-2 score 4 08/13/2022 Area Deprivation Index Answer Date Adis rded National Score (1-100), lower number is lower ri sk 87 08/14/2022 State Score (1-10), lower number is lower risk 8 08/14/2022 Data from: https://www.neighborhoodatlas.medicine.[facility].edu/. Last address used for calculation [address] 08/14/2022 Sex and Gender Information Value Date [...] 10/03/2024 8:00 AM EDT Office Visit Rheumatology [address] [place] [address] [place] [address] [place] [address] Return in about 9 months (around 10/03/2024). documented as of this encounter Visit Diagnoses Not on filedocumented in this encounter Care Teams Rehabilitation Medicine Physician Relationship Specialty Start Date End Date Malcolm Cid MD PCP - General Family Medicine 01/07/15 documented as of this encounter
--- OUTSIDE RECORDS SUMMARY | 2024-07-29 20:19 | XMS_ITS | Encounter Summary ---
Author Organization [facility] Address [address] [place] [address] Care Team Providers Care Finished Carpet Inspector Name Role Phone Malcolm Cid MD Primary Care Provider [phone] Source Comments In the event this information is protected by the Federal Confidentiality of Alcohol and Drug AbusePatient Records regulations: The Federal rules restrict any use of the information to criminally investigate or prosecute any alcohol or drug abuse patient.[facility] Encounter Details Date Type Department Care Team (Late st Contact Info) Description 04/05/2020 Patient Msg Rheumatology [address] [place], [place] [phone] Provider, [facility] Results Social History Tobacco Use Types Packs/Day Years Used Date Smoking Tobacco: Never Smokeless Tobacco: Current Chew PHQ-2 Answer Date Recorded PHQ-2 score 4 03/31/2020 Area Deprivation Index Answer Date Adis rded National Score (1-100), lower number is lower ri sk Not on file 02/05/2020 State Score (1-10), lower number is lower risk N ot on file 02/05/2020 Data from: https://www.neighborhoodatlas.medicine.[facility].edu/. Last address used for calculation Not on [...] have Coronavirus / COVID-19? No / Unsure 04/02/2020 8:06 AM EST documented as of this encounter Functional [...] 10/03/2024 8:00 AM EDT Office Visit Rheumatology [address] [place] [address] [place] [address] [place], [place] [phone] Return in about 9 months (around 10/03/2024). documented as of this encounter Visit Diagnoses Not on filedocumented in this encounter Care Teams Finished Carpet Inspector Relationship Specialty Start Date End Date Malcolm Cid MD PCP - General Family Medicine 01/07/15 documented as of this encounter
--- OUTSIDE RECORDS SUMMARY | 2024-07-29 20:19 | XMS_ITS | Encounter Summary ---
Author Organization [facility] Address [address] [place] [address] Care Team Providers Care Head Greenskeeper Name Role Phone Malcolm Cid MD Primary Care Provider [phone] Source Comments In the event this information is protected by the Federal Confidentiality of Alcohol and Drug AbusePatient Records regulations: The Federal rules restrict any use of the information to criminally investigate or prosecute any alcohol or drug abuse patient.[facility] Encounter Details Date Type Department Care Team (Late st Contact Info) Description 06/18/2020 Patient Msg Kidney Medicine [address] [place], [place] [id number] Marito Velasquez MD [address] [place] [address] results Social History Tobacco Use Types Packs/Day Years Used Date Smoking Tobacco: Never Smokeless Tobacco: Current Chew PHQ-2 Answer Date Recorded PHQ-2 score 4 03/31/2020 Area Deprivation Index Answer Date Adis rded National Score (1-100), lower number is lower ri sk Not on file 02/05/2020 State Score (1-10), lower number is lower risk N ot on file 02/05/2020 Data from: https://www.neighborhoodatlas.medicine.[facility]/. Last address used for calculation Not on [...] have Coronavirus / COVID-19? No / Unsure 06/18/2020 9:01 AM EDT documented as of this encounter [...] Date Author No 04/26/2017 6:15 PM Oralia uHrtado RN documented in this encounter Plan of Treatment Upcoming Encounters Date Type Department Care Team (Late st Contact Info) Description 10/03/2024 8:00 AM EDT Office Visit Rheumatology [address] [place], [place] [id number] [place] [address] [place], [place] [phone] Return in about 9 months (around 10/03/2024). documented as of this encounter Visit Diagnoses Not on filedocumented in this encounter Care Teams Head Greenskeeper Relationship Specialty Start Date End Date Malcolm Cid MD PCP - General Family Medicine 01/07/15 documented as of this encounter
--- OUTSIDE RECORDS SUMMARY | 2024-07-29 20:19 | XMS_ITS | Encounter Summary ---
Author Organization [facility] Address [address] [place] [address] Care Team Providers Care Laminator Name Role Phone Malcolm Cid MD Primary Care Provider [phone]- [phone] Source Comments In the event this information is protected by the Federal Confidentiality of Alcohol and Drug AbusePatient Records regulations: The Federal rules restrict any use of the information to criminally investigate or prosecute any alcohol or drug abuse patient.[facility] Encounter Details Date Type Department Care Team (Late st Contact Info) Description 10/12/2022 Patient Msg Rheumatology [address] [place], [place] [phone] Provider, Ccf Appoinment Cancellation Social History Tobacco Use Types Packs/Day Years Used Date Smoking Tobacco: Never Smokeless Tobacco: Current Chew PHQ-2 Answer Date Recorded PHQ-2 score 4 08/13/2022 Area Deprivation Index Answer Date Adis rded National Score (1-100), lower number is lower ri sk 87 08/14/2022 State Score (1-10), lower number is lower risk 8 08/14/2022 Data from: https://www.neighborhoodatlas.medicine.[facility].edu/. Last address used for calculation [address] [facility] 08/14/2022 Sex and Gender Information Value Date [...] 10/03/2024 8:00 AM EDT Office Visit Rheumatology [address] [place] [address] [place] [address] [place] [address] Return in about 9 months (around 10/03/2024). documented as of this encounter Visit Diagnoses Not on filedocumented in this encounter Care Teams Laminator Relationship Specialty Start Date End Date Malcolm Cid MD PCP - General Family Medicine 01/07/15 documented as of this encounter
--- OUTSIDE RECORDS SUMMARY | 2024-07-29 20:19 | XMS_ITS | Encounter Summary ---
Author Organization [facility] Address [address] [place] [address] Care Team Providers Care Material Loader Name Role Phone Malcolm Cid MD Primary Care Provider [phone] Malcolm Cid MD Unavailable Wednesday, Alma AQUINON Unavailable [phone] Jayne Del Valle RN Unavailable Merry Paz NICKEL PLATER Unavailable Unavailable Encounter Details Date Type Department Care Team (Late st Contact Info) Description 07/06/2023 Abstract [facility] [address] [facility] 110 [place] [phone] Malcolm Cid MD 112 [facility] 110 [place], [place] [id number] Social History Tobacco Use Types Packs/Day Years [...] How often do you attend chur or mandaen services? More than 4 times per year 09/14/2022 Do you belong to any clubs o r organizations such as mandaen groups, unions, fraternal or athletic groups, or [...] care, and heating? Not very hard 09/14/2022 [facility] Occup[facility] - Occupational [...] place to sleep or slept in a residential (including now)? No 09/14/2022 Sex and Gender [...] filedocumented in this encounter Care Teams Material Loader Relationship Specialty Start Date End Date Malcolm Cid MD [address] [facility] 110 [place] [address] PCP - General Family Medicine 07/29/22 Malcolm Cid MD [address] [place] [address] PCP - [facility] 05/30/22Wednesday, BREE Marquez [address] [place] [address] Licensed Practical Nurse Family Medicine 06/04/23 Jayne Del Valle, RN Licensed Practical Nurse Family Medicine 04/07/2404/30 Merry Paz LPN 05/19/24 documented as of this encounter
--- OUTSIDE RECORDS SUMMARY | 2024-07-29 20:19 | XMS_ITS | Encounter Summary ---
Author Organization [facility] Address [address] [place] [address] Care Team Providers Care Mammal Keeper Name Role Phone Malcolm Cid MD Primary Care Provider [phone] Source Comments In the event this information is protected by the Federal Confidentiality of Alcohol and Drug AbusePatient Records regulations: The Federal rules restrict any use of the information to criminally investigate or prosecute any alcohol or drug abuse patient.[facility] Encounter Details Date Type Department Care Team (Late st Contact Info) Description 05/09/2020 Patient Msg Rheumatology [address] [place], [place] [phone] Provider, C[facility] Results Social History Tobacco Use Types Packs/Day Years Used Date Smoking Tobacco: Never Smokeless Tobacco: Current Chew PHQ-2 Answer Date Recorded PHQ-2 score 4 03/31/2020 Area Deprivation Index Answer Date Adis rded National Score (1-100), lower number is lower ri sk Not on file 02/05/2020 State Score (1-10), lower number is lower risk N ot on file 02/05/2020 Data from: https://www.neighborhoodatlas.medicine.[facility].edu/. Last address used for calculation Not on [...] 10/03/2024 8:00 AM EDT Office Visit Rheumatology [address] [place] [address] [place] [address] [place] [address] Return in about 9 months (around 10/03/2024). documented as of this encounter Visit Diagnoses Not on filedocumented in this encounter Care Teams Mammal Keeper Relationship Specialty Start Date End Date Malcolm Cid MD PCP - General Family Medicine 01/07/15 documented as of this encounter
--- OUTSIDE RECORDS SUMMARY | 2024-07-29 20:19 | XMS_ITS | Encounter Summary ---
Author Organization [facility] Address [address] [place] [address] Care Team Providers Care Tinner Automatic Name Role Phone Malcolm Cid MD Primary Care Provider [phone] Malcolm Cid MD Unavailable Wednesday, Alma AQUINON Unavailable [phone] Jayne Del Valle RN Unavailable [phone] Merry Paz [facility] Unavailable Unavailable Encounter Details Date Type Department Care Team (Late st Contact Info) Description 07/06/2023 Abstract [facility] 112 [facility] 110 [place] [phone] Malcolm Cid MD 112 [facility] 110 [place], [place] [phone] Social History Tobacco Use Types Packs/Day Years [...] How often do you attend chur or bahai services? More than 4 times per year [...] to sleep or slept in a senior care (including now)? No 09/14/2022 Sex and Gender [...] on filedocumented in this encounter Care Teams Tinner Automatic Relationship Specialty Start Date End Date Malcolm Cid MD [address] [facility] 110 [place] [address] PCP - General Family Medicine 07/29/22 Malcolm Cid MD [address] [place] [address] PCP - [facility] 05/30/22Wednesday, BREE Marquez [address] [place] [address] Licensed Practical Nurse Family Medicine 06/04/23 Jayne Del Valle, RN Licensed Practical Nurse Family Medicine 04/07/2404/30 Merry Paz LPN 05/19/24 documented as of this encounter
--- OUTSIDE RECORDS SUMMARY | 2024-07-29 20:19 | XMS_ITS | Encounter Summary ---
Author Organization [facility] Address [address] [place] [address] Care Team Providers Care Script Editor Name Role Phone Malcolm Cid MD Primary Care Provider [phone] Malcolm Cid MD Unavailable Wednesday, Alma AQUINON Unavailable [phone] Jayne Del Valle RN Unavailable [phone] Merry Paz LPN Unavailable Unavailable Encounter Details Date Type Department Care Team (Late st Contact Info) Description 06/08/2023 Orders Only [facility] [address] [place] [place] [address] A, Unknown Practice [address] [place] [address] Social History Tobacco Use Types Packs/Day Years [...] How often do you attend chur or quaker services? More than 4 times per year 09/14/2022 Do you belong to any clubs o r organizations such as faith groups, unions, fraternal or athletic groups, or [...] care, and heating? Not very hard 09/14/2022 [facility] of Occupat ional Health - Occupational Stress [...] place to sleep or slept in a detention (including now)? No 09/14/2022 Sex and Gender [...] Associated Diagnosis Comments ELECTROCARDIOGRAM REPORT Routine 024 11:18 AM EDT documented in this encounter Results * Electrocardiogram Report (06/03/2023 11:18 AM EDT) us Unknown Practice A IN CLINIC/BEDSIDE ORDERABLES Final Result documented in this encounter Visit Diagnoses Not on filedocumented in this encounter Care Teams Script Editor Relationship Specialty Start Date End Date Malcolm Cid MD 112 [facility] 110 [place] [address] PCP - General Family Medicine 07/29/22 Malcolm Cid MD [address] [place] [facility] 110 [place] [address] PCP - [facility] 05/30/22Wednesday, BREE Marquez [address] [place], [place] [id number] Licensed Practical Nurse Family Medicine 06/04/23 Jayne Del Valle, RN Licensed Practical Nurse Family Medicine 04/07/2404/30 Merry Paz LPN 05/19/24 documented as of this encounter
--- OUTSIDE RECORDS SUMMARY | 2024-07-29 20:19 | XMS_ITS | Encounter Summary ---
Author Organization [facility] Address [address] [place] [address] Care Team Providers Care Paper Feeder Name Role Phone Malcolm Cid MD Primary Care Provider [phone] Source Comments In the event this information is protected by the Federal Confidentiality of Alcohol and Drug AbusePatient Records regulations: The Federal rules restrict any use of the information to criminally investigate or prosecute any alcohol or drug abuse patient.[facility] Encounter Details Date Type Department Care Team (Late st Contact Info) Description 08/19/2020 Patient Msg Rheumatology [address] [place], [place] [id number] [place] [address] [place] [address] August lab reminder Social History Tobacco Use Types Packs/Day Years Used Date Smoking Tobacco: Never Smokeless Tobacco: Current Chew PHQ-2 Answer Date Recorded PHQ-2 score 3 08/19/2020 Area Deprivation Index Answer Date Adis rded National Score (1-100), lower number is lower ri sk Not on file 02/05/2020 State Score (1-10), lower number is lower risk N ot on file 02/05/2020 Data from: https://www.neighborhoodatlas.[facility]/. Last address used for calculation Not on [...] 10/03/2024 8:00 AM EDT Office Visit Rheumatology [address] [place], [place] [address] [place] [address] [place], [place] [id number] Return in about 9 months (around 10/03/2024). documented as of this encounter Visit Diagnoses Not on filedocumented in this encounter Care Teams Paper Feeder Relationship Specialty Start Date End Date Malcolm Cid MD PCP - General Family Medicine 01/07/15 documented as of this encounter
--- OUTSIDE RECORDS SUMMARY | 2024-07-29 20:19 | XMS_ITS | Encounter Summary ---
Author Organization [facility] Address [address] [place] [address] Care Team Providers Care Medical Care Evaluation Specialist Name Role Phone Malcolm Cid MD Primary Care Provider [phone] Malcolm Cid MD Unavailable Wednesday, Alma AQUINON Unavailable [phone] Jayne Del Valle RN Unavailable [phone] Merry Paz WIPER BLENDER Unavailable Unavailable Encounter Details Date Type Department Care Team (Late st Contact Info) Description 06/15/2023 Abstract [facility] [address] [facility] 110 [place] [id number] Malcolm Cid MD 112 [facility] 110 [place], [place] [id number] Social History Tobacco Use Types Packs/Day Years [...] How often do you attend chur or methodist services? More than 4 times per year 09/14/2022 Do you belong to any clubs o r organizations such as jainism groups, unions, fraternal or athletic groups, or [...] care, and heating? Not very hard 09/14/2022 [facility] of Occupat ional Health - Occupational [...] on filedocumented in this encounter Care Teams Medical Care Evaluation Specialist Relationship Specialty Start Date End Date Malcolm Cid MD [address] [facility] 110 [place] [address] PCP - General Family Medicine 07/29/22 Malcolm Cid MD [address] [place] [address] [place] [address] PCP - [facility] 05/30/22Wednesday, BREE Marquez [address] [place] [address] Licensed Practical Nurse Family Medicine 06/04/23 Jayne Del Valle, RN Licensed Practical Nurse Family Medicine 04/07/2404/30 Merry Paz LPN 05/19/24 documented as of this encounter
--- OUTSIDE RECORDS SUMMARY | 2024-07-29 20:19 | XMS_ITS | Encounter Summary ---
Author Organization [facility] Address [address] [place] [address] Care Team Providers Care Senior Account Executive Name Role Phone Malcolm Cid MD Primary Care Provider [phone] Malcolm Cid MD Unavailable Wednesday, Alma AQUINON Unavailable [phone] Jayne Del Valle RN Unavailable Merry Paz BONDING AND COMPOSITE FABRICATOR Unavailable Unavailable Encounter Details Date Type Department Care Team (Late st Contact Info) Description 03/25/2023 Abstract [facility] [address] [facility] 110 [place] [address] Malcolm Cid MD 112 [facility] 110 [place], [place] [id number] Social History Tobacco Use Types Packs/Day Years [...] How often do you attend chur or anabaptist services? More than 4 times per year [...] care, and heating? Not very hard 09/14/2022 [facility] of Occupat ional Health - Occupational Stress [...] on filedocumented in this encounter Care Teams Senior Account Executive Relationship Specialty Start Date End Date Malcolm Cid MD [address] [place] [address] [place] [address] PCP - General Family Medicine 07/29/22 Malcolm Cid MD [address] [place] [address] [place] [address] PCP - [facility] 05/30/22Wednesday, BREE Marquez [address] [place] [address] Licensed Practical Nurse Family Medicine 06/04/23 Jayne Del Valle, RN Licensed Practical Nurse Family Medicine 04/07/2404/30 Merry Paz LPN 05/19/24 documented as of this encounter
--- OUTSIDE RECORDS SUMMARY | 2024-07-29 20:19 | XMS_ITS | Encounter Summary ---
Author Organization [facility] Address [address] [place] [address] Care Team Providers Care Baggage Agent Name Role Phone Malcolm Cid MD Primary Care Provider [phone] Malcolm Cid MD Unavailable Wednesday, Alma AQUINON Unavailable Jayne Del Valle RN Unavailable [phone] Merry Paz METER READING CLERK Unavailable Unavailable Encounter Details Date Type Department Care Team (Late st Contact Info) Description 03/08/2023 Abstract [facility] [address] [facility] 110 [place] [address] Malcolm Cid MD 112 [facility] 110 [place], [place] [address] Social History Tobacco Use Types Packs/Day Years [...] How often do you attend chur or taoist services? More than 4 times per year 09/14/2022 Do you belong to any clubs o r organizations such as roman catholic groups, unions, fraternal or athletic groups, or [...] care, and heating? Not very hard 09/14/2022 [facility] of Occupat ional Health - Occupational Stress [...] on filedocumented in this encounter Care Teams Baggage Agent Relationship Specialty Start Date End Date Malcolm Cid MD [address] [place] [address] PCP - General Family Medicine 07/29/22 Malcolm Cid MD [address] [place] [address] [place] [address] PCP - [facility] 05/30/22Wednesday, BREE Marquez [address] [place] [address] Licensed Practical Nurse Family Medicine 06/04/23 Jayne Del Valle, RN Licensed Practical Nurse Family Medicine 04/07/2404/30 Merry Paz LPN 05/19/24 documented as of this encounter
--- OUTSIDE RECORDS SUMMARY | 2024-07-29 20:19 | XMS_ITS | Encounter Summary ---
Author Organization [facility] Address [address] [place] [address] Care Team Providers Care Cyber Incident Analyst Name Role Phone Malcolm Cid MD Primary Care Provider [phone] Malcolm Cid MD Unavailable Wednesday, Alma AQUINON Unavailable [phone] Jayne Del Valle RN Unavailable [phone] Merry Paz FAST FOOD MANAGER Unavailable Unavailable Encounter Details Date Type Department Care Team (Late st Contact Info) Description 04/21/2023 Orders Only [facility] [address] [place] [address] [place] [address] A, Unknown Practice [address] [place] [address] Social History Tobacco Use Types Packs/Day Years [...] How often do you attend chur or uatsdin services? More than 4 times per year 09/14/2022 Do you belong to any clubs o r organizations such as uatsdin groups, unions, fraternal or athletic groups, or [...] care, and heating? Not very hard 09/14/2022 [facility] of Occupat ional Health - Occupational Stress [...] Associated Diagnosis Comments ELECTROCARDIOGRAM REPORT Routine 024 2:49 PM EST documented in this encounter Results * Electrocardiogram Report (04/20/2023 2:49 PM EST) us Unknown Practice A IN CLINIC/BEDSIDE ORDERABLES Final Result documented in this encounter Visit Diagnoses Not on filedocumented in this encounter Care Teams Cyber Incident Analyst Relationship Specialty Start Date End Date Malcolm Cid MD [address] [facility] 110 [place] [address] PCP - General Family Medicine 07/29/22 Malcolm Cid MD [address] [facility] 110 [place] [address] PCP - [facility] 05/30/22Wednesday, BREE Marquez 112 [facility] [address] [place] [address] Licensed Practical Nurse Family Medicine 06/04/23 Jayne Del Valle, RN Licensed Practical Nurse Family Medicine 04/07/2404/30 Merry Paz LPN 05/19/24 documented as of this encounter
--- OUTSIDE RECORDS SUMMARY | 2024-07-29 20:19 | XMS_ITS | Encounter Summary ---
Author Organization [facility] Address [address] [place] [address] Care Team Providers Care Sea Foam Kiss Maker Name Role Phone Malcolm Cid MD Primary Care Provider [phone] Source Comments In the event this information is protected by the Federal Confidentiality of Alcohol and Drug AbusePatient Records regulations: The Federal rules restrict any use of the information to criminally investigate or prosecute any alcohol or drug abuse patient.[facility] Encounter Details Date Type Department Care Team (Late st Contact Info) Description 09/09/2022 Get Medical Advice Rheumatology [address] [place], [place] [phone] [place] [address] [place] [address] Return to work form. Social History Tobacco Use Types Packs/Day Years Used Date Smoking Tobacco: Never Smokeless Tobacco: Current Chew PHQ-2 Answer Date Recorded PHQ-2 score 4 08/13/2022 Area Deprivation Index Answer Date Adis rded National Score (1-100), lower number is lower ri sk 87 08/14/2022 State Score (1-10), lower number is lower risk 8 08/14/2022 Data from: https://www.[facility]xner medical centeratlas.[facility]/. Last address used for calculation [place] [place] [...] Oralia Hurtado RN documented in this encounter Miscellaneous Notes * Telephone Encounter - Delmy Castro MD - 09/17/2022 5:37 AM EDT Please call patient to get more information. For what medical reason was the leave advised and whether there is a covering physician for his PCP that would be able to fill out the form (if it is for a non-rheumatologic issue that he was put on work leave). Thx. documented in this encounter Plan of Treatment Upcoming Encounters Date Type Department Care Team (Late st Contact Info) Description 10/03/2024 8:00 AM EDT Office Visit Rheumatology [address] [place], [place] [phone] [place] [address] [place], [place] [phone] Return in about 9 months (around 10/03/2024). documented as of this encounter Visit Diagnoses Not on filedocumented in this encounter Care Teams Sea Foam Kiss Maker Relationship Specialty Start Date End Date Malcolm Cid MD PCP - General Family Medicine 01/07/15 documented as of this encounter
--- OUTSIDE RECORDS SUMMARY | 2024-07-29 20:19 | XMS_ITS | Encounter Summary ---
Author Organization [facility] Address [address] [place] [address] Care Team Providers Care Rehab Aide Name Role Phone Malcolm Cid MD Primary Care Provider [phone] Malcolm Cid MD Unavailable Wednesday, Alma AQUINON Unavailable [phone] Jayne Del Valle RN Unavailable Merry Paz SCREEN DOOR MAKER Unavailable Unavailable Encounter Details Date Type Department Care Team (Late st Contact Info) Description 05/12/2023 Abstract [facility] [address] [facility] 110 [place] [phone] Malcolm Cid MD 112 [facility] 110 [place], [place] [address] Social History Tobacco Use Types Packs/Day Years [...] How often do you attend chur or sabianist services? More than 4 times per year 09/14/2022 Do you belong to any clubs o r organizations such as buddhist groups, unions, fraternal [...] care, and heating? Not very hard 09/14/2022 [facility] of Occupat ional Health - Occupational [...] place to sleep or slept in a long term (including now)? No 09/14/2022 Sex and Gender [...] on filedocumented in this encounter Care Teams Rehab Aide Relationship Specialty Start Date End Date Malcolm Cid MD [address] [facility] 110 [place] [address] PCP - General Family Medicine 07/29/22 Malcolm Cid MD [address] [place] [address] PCP - [facility] 05/30/22Wednesday, BREE Marquez [address] [place] [address] Licensed Practical Nurse Family Medicine 06/04/23 Jayne Del Valle, RN Licensed Practical Nurse Family Medicine 04/07/2404/30 Merry Paz LPN 05/19/24 documented as of this encounter
--- OUTSIDE RECORDS SUMMARY | 2024-07-29 20:19 | XMS_ITS | Encounter Summary ---
Author Organization [facility] Address [address] [place] [address] Care Team Providers Care Army Helicopter Pilot Name Role Phone Malcolm Cid MD Primary Care Provider [phone] Source Comments In the event this information is protected by the Federal Confidentiality of Alcohol and Drug AbusePatient Records regulations: The Federal rules restrict any use of the information to criminally investigate or prosecute any alcohol or drug abuse patient.[facility] Encounter Details Date Type Department Care Team (Late st Contact Info) Description 04/04/2020 Patient Msg Rheumatology [address] [place], [place] [id number] Provider, [facility] Results Social History Tobacco Use Types Packs/Day Years Used Date Smoking Tobacco: Never Smokeless Tobacco: Current Chew PHQ-2 Answer Date Recorded PHQ-2 score 4 03/31/2020 Area Deprivation Index Answer Date Adis rded National Score (1-100), lower number is lower ri sk Not on file 02/05/2020 State Score (1-10), lower number is lower risk N ot on file 02/05/2020 Data from: https://www.neighborhoodatlas.medicine.[facility].edu/. Last address used for calculation Not [...] 10/03/2024 8:00 AM EDT Office Visit Rheumatology [address] [place] [address] [place] [address] [place], [place] [address] Return in about 9 months (around 10/03/2024). documented as of this encounter Visit Diagnoses Not on filedocumented in this encounter Care Teams Army Helicopter Pilot Relationship Specialty Start Date End Date Malcolm Cid MD PCP - General Family Medicine 01/07/15 documented as of this encounter
--- OUTSIDE RECORDS SUMMARY | 2024-07-29 20:19 | XMS_ITS | Encounter Summary ---
Author Organization [facility] Address [address] [place] [address] Care Team Providers Care Carpenter Labor Supervisor Name Role Phone Malcolm Cid MD Primary Care Provider [phone] Source Comments In the event this information is protected by the Federal Confidentiality of Alcohol and Drug AbusePatient Records regulations: The Federal rules restrict any use of the information to criminally investigate or prosecute any alcohol or drug abuse patient.[facility] Encounter Details Date Type Department Care Team (Late st Contact Info) Description 02/04/2024 Get Medical Advice Rheumatology [address] [place], [place] [address] [place] [address] [place] [address] Flare up Social History Tobacco Use Types Packs/Day Years Used Date Smoking Tobacco: Never Smokeless Tobacco: Current Chew PHQ-2 Answer Date Recorded PHQ-2 score 1 01/14/2024 Area Deprivation Index Answer Date Adis rded National Score (1-100), lower number is lower ri sk 87 08/14/2022 State Score (1-10), lower number is lower risk 8 08/14/2022 Data from: https://www.neighborhoodatlas.medicine.[facility]/. Last address used for calculation Thong [...] of Assessment Author No 04/26/2017 6:15 PM Oraila Hurtado RN * Because of a physical, [...] Telephone Encounter - Delmy Castro MD - 02/04/2024 4:57 PM EST Per OARRS - Percocets 20 tabs dispensed on 01/27/2024 and receiving Tramadol prescriptions from [facility]. Advise patient that he will need to request controlled substances from prescribing provider. The following approved medication requests have been transmitted electronically. Requested Prescriptions Signed Prescriptions Disp Refills predniSONE (DELTASONE) 5 mg tablet 21 tablet 0 Sig: Take 6 tab in AM on day 1 then reduce dose by 1 tablet every day until off Delmy Castro MD * Telephone Encounter - Caren Vogt LPN - 02/04/2024 10:49 AM EST JOSY: 01/04/24 THERAPIES/MEDICATIONS TRIED colchicine uric acid lowering agents: Uloric, allopurinol Tramadol Intermittent oral/IM glucocorticosteroids NSAIDs: ibuprofen, Aleve, indocin Injections in joints: none Injections in spine: none documented in this encounter Plan of Treatment Upcoming Encounters Date Type Department Care Team (Late st Contact Info) Description 10/03/2024 8:00 AM EDT Office Visit Rheumatology [address] [place] [address] [place] [address] [place] [address] Return in about 9 months (around 10/03/2024). documented as of this encounter Visit Diagnoses Not on filedocumented in this encounter Care Teams Carpenter Labor Supervisor Relationship Specialty Start Date End Date Malcolm Cid MD PCP - General Family Medicine 01/07/15 documented as of this encounter
--- OUTSIDE RECORDS SUMMARY | 2024-07-29 20:19 | XMS_ITS | Encounter Summary ---
Author Organization [facility] Address [address] [place] [address] Care Team Providers Care Circuits Engineer Name Role Phone Malcolm Cid MD Primary Care Provider [phone] Source Comments In the event this information is protected by the Federal Confidentiality of Alcohol and Drug AbusePatient Records regulations: The Federal rules restrict any use of the information to criminally investigate or prosecute any alcohol or drug abuse patient.[facility] Encounter Details Date Type Department Care Team (Late st Contact Info) Description 01/04/2024 Patient Msg Rheumatology [address] [place], [place] [phone] [place] [address] [place] [address] Previsit lab reminder Social History Tobacco Use Types Packs/Day Years Used Date Smoking Tobacco: Never Smokeless Tobacco: Current Chew PHQ-2 Answer Date Recorded PHQ-2 score 4 08/13/2022 Area Deprivation Index Answer Date Adis rded National Score (1-100), lower number is lower ri sk 87 08/14/2022 State Score (1-10), lower number is lower risk 8 08/14/2022 Data from: https://www.neighborhoodatlas.[facility]/. Last address used for calculation [...] 10/03/2024 8:00 AM EDT Office Visit Rheumatology [address] [place], [place] [address] [place] [address] [place], [place] [phone] Return in about 9 months (around 10/03/2024). documented as of this encounter Visit Diagnoses Not on filedocumented in this encounter Care Teams Circuits Engineer Relationship Specialty Start Date End Date Malcolm Cid MD PCP - General Family Medicine 01/07/15 documented as of this encounter
--- OUTSIDE RECORDS SUMMARY | 2024-07-29 20:19 | XMS_ITS | Encounter Summary ---
Author Organization [facility] Address [address] [place] [address] Care Team Providers Care Deputy Sheriff Generalist/Bailiff Name Role Phone Malcolm Cid MD Primary Care Provider [phone] Malcolm Cid MD Unavailable Wednesday, Alma AQUINON Unavailable [phone] Jayne Del Valle RN Unavailable Merry Paz MEAL ROOM HAND Unavailable Unavailable Reason for Visit * Reason Onset Date Comments Med Refill 04/13/2023 Encounter Details Date Type Department Care Team (Late st Contact Info) Description 04/13/2023 Refill [facility] [address] [facility] 110 [place] [address] Marina [facility], [place] [address] [place] [address] 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); Anxiety Social History Tobacco Use Types Packs/Day Years [...] care, and heating? Not very hard 09/14/2022 [facility] of Occupat ional Health - Occupational Stress [...] place to sleep or slept in a halfway (including now)? No 09/14/2022 Sex and Gender Information Value Date Recorded Sex Assigned at Male 09/08/2022 2:56 PM EDT Legal Sex Male 6:55 PM EDT Gender Identity Male 09/08/2022 2:56 PM EDT Sexual Orientation Straight 09/08/2022 2: 56 PM EDT documented as of this encounter Miscellaneous Notes * Telephone Encounter - Caitlyn Olivarez - 04/13/2023 11:02 AM EST PT SCHEDULED * Telephone Encounter - [facility] Vera - 04/13/2023 8:02 AM EST Patient is due for a follow up appt within the month. Please help him get scheduled. Last refill until seen. OARRS reviewed, Rx sent into patient's pharmacy. documented in this encounter Plan of Treatment Not on file documented as of this encounter Visit Diagnoses Diagnosis 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 rheumatoid factor ([facility]) Anxiety Anxiety state, unspecified documented in this encounter Care Teams Deputy Sheriff Generalist/Bailiff Relationship Specialty Start Date End Date Malcolm Cid MD [address] [place] [address] PCP - General Family Medicine 07/29/22 Malcolm Cid MD [address] [place] [address] PCP - [facility] 05/30/22Wednesday, BREE Marquez [address] [place] [address] Licensed Practical Nurse Family Medicine 06/04/23 Jayne Del Valle, DELMIS Licensed Practical Nurse Family Medicine 04/07/2404/30 Merry Paz LPN 05/19/24 documented as of this encounter
--- OUTSIDE RECORDS SUMMARY | 2024-07-29 20:19 | XMS_ITS | Encounter Summary ---
Author Organization [facility] Address [address] [place] [address] Care Team Providers Care Drywall Hanger Name Role Phone Malcolm Cid MD Primary Care Provider [phone] Malcolm Cid MD Unavailable Wednesday, Alma AQUINON Unavailable [phone] Jayne Del Valle RN Unavailable [phone] Merry Paz RESIDENTIAL SOLAR SALES CONSULTANT Unavailable Unavailable Encounter Details Date Type Department Care Team (Late st Contact Info) Description 06/25/2023 Abstract [facility] [address] [facility] 110 [place] [id number] Malcolm Cid MD 112 [facility] 110 [place], [place] [id number] Social History Tobacco Use Types Packs/Day Years [...] How often do you attend chur or sikhism services? More than 4 times per year [...] on filedocumented in this encounter Care Teams Drywall Hanger Relationship Specialty Start Date End Date Malcolm Cid MD [address] [facility] 110 [place] [address] PCP - General Family Medicine 07/29/22 Malcolm Cid MD [address] [place] [address] PCP - [facility] 05/30/22Wednesday, BREE Marquez [address] [place] [address] Licensed Practical Nurse Family Medicine 06/04/23 Jayne Del Valle, RN Licensed Practical Nurse Family Medicine 04/07/2404/30 Merry Paz LPN 05/19/24 documented as of this encounter
--- OUTSIDE RECORDS SUMMARY | 2024-07-29 20:19 | XMS_ITS | Encounter Summary ---
Author Organization [facility] Address [address] [place] [address] Care Team Providers Care Senior J2Ee Developer Name Role Phone Malcolm Cid MD Primary Care Provider [phone] Source Comments In the event this information is protected by the Federal Confidentiality of Alcohol and Drug AbusePatient Records regulations: The Federal rules restrict any use of the information to criminally investigate or prosecute any alcohol or drug abuse patient.[facility] Encounter Details Date Type Department Care Team (Late st Contact Info) Description 08/19/2020 Patient Msg Rheumatology [address] [place], [place] [id number] [place] [address] [place] [address] October lab reminder Social History Tobacco Use Types Packs/Day Years Used Date Smoking Tobacco: Never Smokeless Tobacco: Current Chew PHQ-2 Answer Date Recorded PHQ-2 score 3 08/19/2020 Area Deprivation Index Answer Date Adis rded National Score (1-100), lower number is lower ri sk Not on file 02/05/2020 State Score (1-10), lower number is lower risk N ot on file 02/05/2020 Data from: https://www.neighborhoodatlas.[facility]/. Last address used for calculation Not on [...] 10/03/2024 8:00 AM EDT Office Visit Rheumatology [address] [place], [place] [id number] [place] [address] [place], [place] [id number] Return in about 9 months (around 10/03/2024). documented as of this encounter Visit Diagnoses Not on filedocumented in this encounter Care Teams Senior J2Ee Developer Relationship Specialty Start Date End Date Malcolm Cid MD PCP - General Family Medicine 01/07/15 documented as of this encounter
--- OUTSIDE RECORDS SUMMARY | 2024-07-29 20:19 | XMS_ITS | Encounter Summary ---
Author Organization [facility] Address [address] [place] [address] Care Team Providers Care Physical Therapy Technician Name Role Phone Malcolm Cid MD Primary Care Provider [phone] Source Comments In the event this information is protected by the Federal Confidentiality of Alcohol and Drug AbusePatient Records regulations: The Federal rules restrict any use of the information to criminally investigate or prosecute any alcohol or drug abuse patient.[facility] Encounter Details Date Type Department Care Team (Late st Contact Info) Description 09/20/2023 Patient [facility] HB-[address] [place] [address] Nevin Balbuena RPh At your next appointment, choose [facility] Social History Tobacco Use Types Packs/Day Years Used Date Smoking Tobacco: Never Smokeless Tobacco: Current Chew PHQ-2 Answer Date Recorded PHQ-2 score 4 08/13/2022 Area Deprivation Index Answer Date Adis rded National Score (1-100), lower number is lower ri sk 87 08/14/2022 State Score (1-10), lower number is lower risk 8 08/14/2022 Data from: https://www.neighborhoodatlas.medicine.[facility].edu/. Last address used for calculation [address] 08/14/2022 Sex and Gender Information Value Date [...] 10/03/2024 8:00 AM EDT Office Visit Rheumatology [address] [place] [address] [place] [address] [place] [address] Return in about 9 months (around 10/03/2024). documented as of this encounter Visit Diagnoses Not on filedocumented in this encounter Care Teams Physical Therapy Technician Relationship Specialty Start Date End Date Malcolm Cid MD PCP - General Family Medicine 01/07/15 documented as of this encounter
--- OUTSIDE RECORDS SUMMARY | 2024-07-29 20:19 | XMS_ITS | Encounter Summary ---
Author Organization [facility] Address [address] [place] [address] Care Team Providers Care Pastry Cook Name Role Phone Malcolm Cid MD Primary Care Provider [phone] Malcolm Cid MD Unavailable Wednesday, Alma AQUINON Unavailable [phone] Jayne Del Valle RN Unavailable [phone] Merry Paz INDUSTRIAL EDUCATION INSTRUCTOR Unavailable Unavailable Encounter Details Date Type Department Care Team (Late st Contact Info) Description 06/09/2023 Orders Only [facility] [address] [place] [address] Unallocated, Noms Provider, [address] [place], [place] [id number] Social History Tobacco Use Types Packs/Day Years [...] How often do you attend chur or temple services? More than 4 times per year 09/14/2022 Do you belong to any clubs o r organizations such as islam groups, unions, fraternal or athletic groups, or [...] care, and heating? Not very hard 09/14/2022 [facility] - [...] place to sleep or slept in a longterm (including now)? No 09/14/2022 Sex and Gender [...] Associated Diagnosis Comments ELECTROCARDIOGRAM REPORT Routine 024 7:55 AM EDT documented in this encounter Results * Electrocardiogram Report (06/02/2023 7:55 AM EDT) us Noms Provider Unallocated MD IN CLINIC/BEDSIDE O RDERABLES Final Result documented in this encounter Visit Diagnoses Not on filedocumented in this encounter Care Teams Pastry Cook Relationship Specialty Start Date End Date Malcolm Cid MD 112 [facility] 110 [place] [address] PCP - General Family Medicine 07/29/22 Malcolm Cid MD [address] [place] [address] PCP - [facility] 05/30/22Wednesday, BREE Marquez [address] [place] [address] Licensed Practical Nurse Family Medicine 06/04/23 Jayne Del Valle, DELMIS Licensed Practical Nurse Family Medicine 04/07/2404/30 Merry Paz LPN 05/19/24 documented as of this encounter
--- OUTSIDE RECORDS SUMMARY | 2024-07-29 20:19 | XMS_ITS | Encounter Summary ---
Author Organization [facility] Address [address] [place] [address] Care Team Providers Care Talent Acquisition Project Manager Name Role Phone Malcolm Cid MD Primary Care Provider [phone] Source Comments In the event this information is protected by the Federal Confidentiality of Alcohol and Drug AbusePatient Records regulations: The Federal rules restrict any use of the information to criminally investigate or prosecute any alcohol or drug abuse patient.[facility] Encounter Details Date Type Department Care Team (Late st Contact Info) Description 09/16/[address] [facility] HB-[address] [place] [address] Mariah Hutchins RPh At your next appointment, choose [facility] Social History Tobacco Use Types Packs/Day Years Used Date Smoking Tobacco: Never Smokeless Tobacco: Current Chew PHQ-2 Answer Date Recorded PHQ-2 score 4 08/13/2022 Area Deprivation Index Answer Date Adis rded National Score (1-100), lower number is lower ri sk 87 08/14/2022 State Score (1-10), lower number is lower risk 8 08/14/2022 Data from: https://www.neighborhoodatlas.medicine.[facility].edu/. Last address used for calculation [address] [facility] 08/14/2022 Sex and Gender Information Value Date [...] 10/03/2024 8:00 AM EDT Office Visit Rheumatology [address] [place] [address] [place] [address] [place] [address] Return in about 9 months (around 10/03/2024). documented as of this encounter Visit Diagnoses Not on filedocumented in this encounter Care Teams Talent Acquisition Project Manager Relationship Specialty Start Date End Date Malcolm Cid MD PCP - General Family Medicine 01/07/15 documented as of this encounter
--- OUTSIDE RECORDS SUMMARY | 2024-07-29 20:19 | XMS_ITS | Encounter Summary ---
Author Organization [facility] Address [address] [place] [address] Care Team Providers Care Appeals Rn Name Role Phone Malcolm Cid MD Primary Care Provider [phone] Malcolm Cid MD Unavailable Wednesday, Alma AUQINON Unavailable Jayne Del Valle RN Unavailable Merry Paz URGENT CARE PHYSICIAN ASSISTANT Unavailable Unavailable Encounter Details Date Type Department Care Team (Late st Contact Info) Description 02/23/2023 Abstract [facility] [address] [facility] 110 [place] [id number] Malcolm Cid MD [address] [facility] 110 [place], [place] [address] Social History Tobacco Use Types Packs/Day Years [...] How often do you attend chur or rastafari services? More than 4 times per year 09/14/2022 Do you belong to any clubs o r organizations such as methodist groups, unions, fraternal or athletic groups, or [...] care, and heating? Not very hard 09/14/2022 [facility] [...] on filedocumented in this encounter Care Teams Appeals Rn Relationship Specialty Start Date End Date Malcolm Cid MD [address] [place] [address] PCP - General Family Medicine 07/29/22 Malcolm Cid MD [address] [place] [address] PCP - [facility] 05/30/22Wednesday, BREE Marquez [address] [place] [address] Licensed Practical Nurse Family Medicine 06/04/23 Jayne Del Valle, RN Licensed Practical Nurse Family Medicine 04/07/2404/30 Merry Paz LPN 05/19/24 documented as of this encounter
--- OUTSIDE RECORDS SUMMARY | 2024-07-29 20:19 | XMS_ITS | Encounter Summary ---
Author Organization [facility] Address [address] [place] [address] Care Team Providers Care Paper Inserter Name Role Phone Malcolm Cid MD Primary Care Provider [phone] Malcolm Cid MD Unavailable Wednesday, Alma AQUINON Unavailable [phone] Jayne Del Valle RN Unavailable [phone] Merry Paz LPN Unavailable Unavailable Encounter Details Date Type Department Care Team (Late st Contact Info) Description 06/15/2023 Orders Only [facility] [address] [place] [address] A, Unknown Practice [address] [place] [address] Social History Tobacco Use Types Packs/Day Years [...] How often do you attend chur or scientology services? More than 4 times per year 09/14/2022 Do you belong to any clubs o r organizations such as rastafari groups, unions, fraternal [...] care, and heating? Not very hard 09/14/2022 [facility] - [...] Procedure Name Priority Date/Time Associated Diagnosis Comments SCANNED LABS Routine 06/09/2023 9:53 AM EDT ELECTROCARDIOGRAM REPORT Routine 024 9:[address] HEAD OR BRAIN W/ & W/O CONTRAST Routine 06/02/2023 9:59 AM EDT documented in this encounter Results * SCANNED LABS (06/09/2023 9:53 AM EDT) us Unknown Practice A LAB CHG PERFORMABLES Final Re sult * Electrocardiogram Report (06/09/2023 9:52 AM EDT) us Unknown Practice A IN CLINIC/BEDSIDE ORDERABLES Final Result * CT HEAD OR BRAIN W/ & W/O CONTRAST (06/02/2023 9:59 AM EDT) Anatomical Region Laterality Modality Radiographic Claire ging us Unknown Practice A IMG XR PROCEDURES Final Resul t documented in this encounter Visit Diagnoses Not on filedocumented in this encounter Care Teams Paper Inserter Relationship Specialty Start Date End Date Mlacolm Cid MD [address] [place] [address] PCP - General Family Medicine 07/29/22 Malcolm Cid MD [address] [place] [address] PCP - [facility] 05/30/22WednesdayAlma LPN [address] [place] [address] Licensed Practical Nurse Family Medicine 06/04/23 Jayne Del Valle, RN Licensed Practical Nurse Family Medicine 04/07/2404/30 Merry Paz LPN 05/19/24 documented as of this encounter
--- OUTSIDE RECORDS SUMMARY | 2024-07-29 20:19 | XMS_ITS | Encounter Summary ---
Author Organization [facility] Address [address] [place] [address] Care Team Providers Care Boots And Shoes Supervisor Name Role Phone Malcolm Cid MD Primary Care Provider [phone] Malcolm Cid MD Unavailable Wednesday, Alma AQUINON Unavailable [phone] Jayne Del Valle RN Unavailable Merry Paz PORTER BATH Unavailable Unavailable Encounter Details Date Type Department Care Team (Late st Contact Info) Description 04/01/2023 Abstract [facility] [address] [facility] 110 [place] [id number] Malcolm Cid MD 112 [facility] 110 [place], [place] [address] Social History Tobacco Use Types Packs/Day Years [...] How often do you attend chur or cheondoism services? More than 4 times per year 09/14/2022 Do you belong to any clubs o r organizations such as rastafarian groups, unions, fraternal or athletic groups, or [...] on filedocumented in this encounter Care Teams Boots And Shoes Supervisor Relationship Specialty Start Date End Date Malcolm Cid MD [address] [place] [address] PCP - General Family Medicine 07/29/22 Malcolm Cid MD [address] [place] [address] PCP - [facility] 05/30/22Wednesday, BREE Marquez [address] [place] [address] Licensed Practical Nurse Family Medicine 06/04/23 Jayne Del Valle, RN Licensed Practical Nurse Family Medicine 04/07/2404/30 Merry Paz LPN 05/19/24 documented as of this encounter
--- OUTSIDE RECORDS SUMMARY | 2024-07-29 20:19 | XMS_ITS | Encounter Summary ---
Author Organization [facility] Address [facility] [place] [address] Care Team Providers Care Labor And Employment Paralegal Name Role Phone Malcolm Cid MD Primary Care Provider [phone] Source Comments In the event this information is protected by the Federal Confidentiality of Alcohol and Drug AbusePatient Records regulations: The Federal rules restrict any use of the information to criminally investigate or prosecute any alcohol or drug abuse patient.[facility] Encounter Details Date Type Department Care Team (Late st Contact Info) Description 09/17/2020 Patient Msg Kidney Medicine [address] [place], [place] [address] Madonna Serrano, INFUSION NURSE.HAIRCUTTER [address] [place] [address] RE: BP Social History Tobacco Use Types Packs/Day Years Used Date Smoking Tobacco: Never Smokeless Tobacco: Current Chew PHQ-2 Answer Date Recorded PHQ-2 score 3 08/19/2020 Area Deprivation Index Answer Date Adis rded National Score (1-100), lower number is lower ri sk Not on file 02/05/2020 State Score (1-10), lower number is lower risk N ot on file 02/05/2020 Data from: https://www.neighborhoodatlas.[facility]/. Last address used for calculation Not [...] have Coronavirus / COVID-19? No / Unsure 09/17/2020 8:13 AM EDT documented as of this encounter [...] 10/03/2024 8:00 AM EDT Office Visit Rheumatology [address] [place], [place] [id number] [place] [address] [place], [place] [address] Return in about 9 months (around 10/03/2024). documented as of this encounter Visit Diagnoses Not on filedocumented in this encounter Care Teams Labor And Employment Paralegal Relationship Specialty Start Date End Date Malcolm Cid MD PCP - General Family Medicine 01/07/15 documented as of this encounter
--- OUTSIDE RECORDS SUMMARY | 2024-07-29 20:19 | XMS_ITS | Encounter Summary ---
Author Organization [facility] Address [address] [place] [address] Care Team Providers Care Global Professional Name Role Phone Malcolm Cid MD Primary Care Provider [phone] Source Comments In the event this information is protected by the Federal Confidentiality of Alcohol and Drug AbusePatient Records regulations: The Federal rules restrict any use of the information to criminally investigate or prosecute any alcohol or drug abuse patient.[facility] Encounter Details Date Type Department Care Team (Late st Contact Info) Description 05/09/2020 Patient Msg Rheumatology [address] [place], [place] [id number] Provider, [facility] Results Social History Tobacco Use Types Packs/Day Years Used Date Smoking Tobacco: Never Smokeless Tobacco: Current Chew PHQ-2 Answer Date Recorded PHQ-2 score 4 03/31/2020 Area Deprivation Index Answer Date Adis rded National Score (1-100), lower number is lower ri sk Not on file 02/05/2020 State Score (1-10), lower number is lower risk N ot on file 02/05/2020 Data from: https://www.neighborhoodatlas.medicine.[facility].edu/. Last address used for calculation Not [...] 10/03/2024 8:00 AM EDT Office Visit Rheumatology [address] [place] [address] [place] [address] [place] [address] Return in about 9 months (around 10/03/2024). documented as of this encounter Visit Diagnoses Not on filedocumented in this encounter Care Teams Global Professional Relationship Specialty Start Date End Date Malcolm Cid MD PCP - General Family Medicine 01/07/15 documented as of this encounter
--- OUTSIDE RECORDS SUMMARY | 2024-07-29 20:20 | XMS_ITS | Encounter Summary ---
Author Organization [facility] Address [address] [place] [address] Care Team Providers Care Final Tester Name Role Phone Malcolm Cid MD Primary Care Provider [phone] Source Comments In the event this information is protected by the Federal Confidentiality of Alcohol and Drug AbusePatient Records regulations: The Federal rules restrict any use of the information to criminally investigate or prosecute any alcohol or drug abuse patient.[facility] Encounter Details Date Type Department Care Team (Late st Contact Info) Description 12/02/2020 Patient Msg Rheumatology [address] [place], [place] [phone] [place] [address] [place] [address] Previsit lab reminder Social History Tobacco Use Types Packs/Day Years Used Date Smoking Tobacco: Never Smokeless Tobacco: Current Chew PHQ-2 Answer Date Recorded PHQ-2 score 3 08/19/2020 Area Deprivation Index Answer Date Adis rded National Score (1-100), lower number is lower ri sk Not on file 02/05/2020 State Score (1-10), lower number is lower risk N ot on file 02/05/2020 Data from: https://www.neighborhoodatlas.[facility]/. Last address used for calculation Not [...] 10/03/2024 8:00 AM EDT Office Visit Rheumatology [address] [place] [address] [place] [address] [place], [place] [id number] Return in about 9 months (around 10/03/2024). documented as of this encounter Visit Diagnoses Not on filedocumented in this encounter Care Teams Final Tester Relationship Specialty Start Date End Date Malcolm Cid MD PCP - General Family Medicine 01/07/15 documented as of this encounter
--- OUTSIDE RECORDS SUMMARY | 2024-07-29 20:20 | XMS_ITS | Encounter Summary ---
Author Organization [facility] Address [address] [place] [address] Care Team Providers Care Line Dancer Name Role Phone Malcolm Cid MD Primary Care Provider [phone] Malcolm Cid MD Unavailable Wednesday, Alma AQUINON Unavailable [phone] Jayne Del Valle RN Unavailable Merry Paz PATCH SANDER Unavailable Unavailable Encounter Details Date Type Department Care Team (Late st Contact Info) Description 01/11/2023 Abstract [facility] [address] [facility] 110 [place] [phone] Malcolm Cid MD 112 [facility] 110 [place], [place] [address] Social History Tobacco Use Types Packs/Day Years [...] any clubs o r organizations such as congregation groups, unions, fraternal or athletic groups, or [...] care, and heating? Not very hard 09/14/2022 [facility] - [...] place to sleep or slept in a [place] health care facility (including now)? No 09/14/2022 Sex and Gender Information Value Date Recorded Sex Assigned at Male 09/08/2022 2:56 PM EDT Legal Sex Male 6:55 PM EDT Gender Identity Male 09/08/2022 2:56 PM EDT Sexual Orientation Straight 09/08/2022 2: 56 PM EDT COVID-19 Exposure Response Date Recorded In the last 10 days, have yo u been in contact with someone who was confirmed or suspected to have Coronavirus/COVID-19? No / Unsure 01/11/2023 11:58 AM EST documented as of this encounter Plan of Treatment Not on file documented as of this encounter Visit Diagnoses Not on filedocumented in this encounter Care Teams Line Dancer Relationship Specialty Start Date End Date Malcolm Cid MD [address] [facility] 110 [place] [address] PCP - General Family Medicine 07/29/22 Malcolm Cid MD [address] [facility] 110 [place] [address] PCP - [facility] 05/30/22Wednesday, BREE Marquez 112 [facility] [address] [place] [address] Licensed Practical Nurse Family Medicine 06/04/23 Jayne Del Valle, DELMIS Licensed Practical Nurse Family Medicine 04/07/2404/30 Merry Paz LPN 05/19/24 documented as of this encounter
--- OUTSIDE RECORDS SUMMARY | 2024-07-29 20:20 | XMS_ITS | Encounter Summary ---
Author Organization [facility] Address [address] [place] [address] Care Team Providers Care Ballistics Laboratory Gunsmith Name Role Phone Malcolm Cid MD Primary Care Provider [phone] Malcolm Cid MD Unavailable Wednesday, Alma AQUINON Unavailable [phone] Jayne Del Valle RN Unavailable Merry Paz IRRIGATION WORKER Unavailable Unavailable Encounter Details Date Type Department Care Team (Late st Contact Info) Description 02/15/2023 Abstract [facility] [address] [facility] 110 [place] [id number] Malcolm Cid MD 112 [facility] 110 [place], [place] [id number] Social History Tobacco Use Types Packs/Day Years [...] How often do you attend chur or presybeterian services? More than 4 times per year 09/14/2022 Do you belong to any clubs o r organizations such as lutheran groups, unions, fraternal or athletic groups, or [...] care, and heating? Not very hard 09/14/2022 [facility] - Occupational [...] place to sleep or slept in a prison (including now)? No 09/14/2022 Sex and Gender [...] on filedocumented in this encounter Care Teams Ballistics Laboratory Gunsmith Relationship Specialty Start Date End Date Malcolm Cid MD [address] [place] [address] PCP - General Family Medicine 07/29/22 Malcolm Cid MD [address] [place] [address] PCP - [facility] 05/30/22Wednesday, BREE Marquez [address] [place] [address] Licensed Practical Nurse Family Medicine 06/04/23 Jayne Del Valle, RN Licensed Practical Nurse Family Medicine 04/07/2404/30 Merry Paz LPN 05/19/24 documented as of this encounter
--- OUTSIDE RECORDS SUMMARY | 2024-07-29 20:20 | XMS_ITS | Encounter Summary ---
Author Organization [facility] Address [address] [place] [address] Care Team Providers Care Mortgage Analyst Name Role Phone Malcolm Cid MD Primary Care Provider [phone] Source Comments In the event this information is protected by the Federal Confidentiality of Alcohol and Drug AbusePatient Records regulations: The Federal rules restrict any use of the information to criminally investigate or prosecute any alcohol or drug abuse patient.[facility] Encounter Details Date Type Department Care Team (Late st Contact Info) Description 12/06/2017 Patient Msg Medical Records [address] [place] [address] Provider, [facility] Labs needed for Dr. Castro Social History Tobacco Use Types Packs/Day [...] No 04/26/2017 6:15 PM Oraila Hurtado RN documented as of this encounter [...] 10/03/2024 8:00 AM EDT Office Visit Rheumatology [address] [place] [address] [place] [address] [place] [address] Return in about 9 months (around 10/03/2024). documented as of this encounter Visit Diagnoses Not on filedocumented in this encounter Care Teams Mortgage Analyst Relationship Specialty Start Date End Date Malcolm Cid MD PCP - General Family Medicine 01/07/15 documented as of this encounter
--- OUTSIDE RECORDS SUMMARY | 2024-07-29 20:20 | XMS_ITS | Encounter Summary ---
Author Organization [facility] Address [address] [place] [address] Care Team Providers Care Screen Printing Equipment Setter Name Role Phone Malcolm Cid MD Primary Care Provider [phone] Malcolm Cid MD Unavailable Wednesday, Alma AQUINON Unavailable [phone] Jayne Del Valle RN Unavailable [phone] Merry Paz LPN Unavailable Unavailable Encounter Details Date Type Department Care Team (Late st Contact Info) Description 01/04/2024 Clinisync Result Encounter [facility] External Department Unsolicited Provider, Generic External Data Social History Tobacco Use Types Packs/Day Years Used Date Smoking Tobacco: Every Day Smokeless Tobacco: Current Chew Alcohol Use Standard Drinks/Week Comments Yes 6 (1 standard drink = 0.6 oz pure alcohol) 2 or 3 drinks in one sitting. Maybe two or three times per w B1300 Health Literacy Answer Date Recor ded How often do you need to hav e someone help you when you read instructions, pamphlets, or other written material from your doctor or pharmacy? Never 10/10/2023 Humiliation, Afraid, Rape, and Kick questionnair e [...] friends, or neighbors? Three times a week 10/10/2023 How often do you get togethe r with friends or relatives? More than three times a week 10/10/2023 How often do you attend chur or judaism services? More than 4 times per year 10/10/2023 Do you belong to any clubs o r organizations such as caodaism groups, unions, fraternal or athletic groups, or school groups? Yes 10/10/2023 How often do you attend meet ings of the clubs or organizations you belong to? More than 4 times per year 10/10/2023 Are you , , di vorced, , never , or living with a partner? 10/10/2023 AUDIT-C Answer Date Recorded Q1: How often do you have a drink containing alc ohol? Monthly or less 10/10/2023 Q2: How many drinks containi ng alcohol do you have on a typical day when you are drinking? 3 or 4 10/10/2023 Q3: How often do you have si x or more drinks on one occasion? Never 10/10/2023 Overall Financial Resource Strain (CARDIA) Answe r Date Recorded How hard is it for you to pa y for the very basics like food, housing, medical care, and heating? Not very hard 10/10/2023 [facility] of Occupat ional Health - Occupational Stress Questionnaire Answer Date Recorded Do you feel stress - tense, restless, nervous, or anxious, or unable to sleep at night because your mind is troubled all the time - these days? Very much 10/10/2023 Exercise Vital Sign Answer Date Recorde d On average, how many days pe r week do you engage in moderate to strenuous exercise (like a brisk walk)? 5 days 10/10/2023 On average, how many minutes do you engage in exercise at this level? 60 min 10/10/2023 Hunger Vital Sign Answer Date Recorded Within the past 12 months, y ou worried that your food would run out before you got the money to buy more. Sometimes true Within the past 12 months, t he food you bought just didn't last and you didn't have money to get more. Never true 12/2023 PRAPARE - Transportation Answer Date Re corded In the past 12 months, has l ack of transportation kept you from medical appointments or from getting medications? No 09/29 In the past 12 months, has l ack of transportation kept you from meetings, work, or from getting things needed for daily living? No 10/10/2023 Housing Stability Vital Sign Answer Sohail e [...] in a snf (including now)? No 09/14/2022 Housing Stability Vital Sign Answer Sohail e Recorded In the last 12 months, was t here a time when you were not able to pay the mortgage or rent on time? Yes 10/10/2023 In the past 12 months, how m any times have you moved where you were living? 0 10/10/2023 At any time in the past [address] [facility], were you homeless or living in a snf (including now)? No 10/10/2023 Sex and Gender Information Value Date Recorded Sex Assigned at Male 09/08/2022 2:56 PM EDT Legal Sex Male 6:55 PM EDT Gender Identity Male 09/08/2022 2:56 PM EDT Sexual Orientation Straight 09/08/2022 2: 56 PM EDT documented as of this encounter Plan of Treatment Not on file documented as of this encounter Procedures Procedure Name Priority Date/Time Associated Diagnosis Comments XR FOOT 3V AP/LAT/OBL RAMIRO 01/04/2024 9:48 AM EST documented in this encounter Results * XR FOOT 3V AP/LAT/OBL RAMIRO (01/04/2024 9:48 AM EST) Anatomical Region Laterality Modality Other 01/04/2024 9:48 AM EST Narrative 01/04/2024 3:14 PM EST * * *Final Report* * * DATE [...] progressed from 05/04/2017 Mild right foot osteoarthritis. Cement Truck Driver: ADELA Transcribe Date/Time: Jan 04 2024 10:13A Dictated by : UMA ROGERS MD This examination was interpreted and the report reviewed and electronically signed by: CHELSEA REEVES MD on Jan 04 2024 3:12PM EST [id number]^SI^ACN Procedure Note Radiology, Radiologist, - 01/04/2024 * * *Final Report* * [...] progressed from 05/04/2017 Mild right foot osteoarthritis. Cement Truck Driver: ADELA Transcribe Date/Time: Jan 04 2024 10:13A Dictated by : UMA ROGERS MD This examination was interpreted and the report reviewed and electronically signed by: CHELSEA REEVES MD on Jan 04 2024 3:12PM EST [id number]^SI^ACN us Generic External Data Provider [facility] Final Result documented in this encounter Visit Diagnoses Not on filedocumented in this encounter Care Teams Screen Printing Equipment Setter Relationship Specialty Start Date End Date Malcolm Cid MD [address] [place] [address] PCP - General Family Medicine 07/29/22 Malcolm Cid MD [address] [place] [address] PCP - [facility] 05/30/22Wednesday, BREE Marquez [address] [place] [address] Licensed Practical Nurse Family Medicine 06/04/23 Jayne Del Valle, DELMIS Licensed Practical Nurse Family Medicine 04/07/2404/30 Merry Paz LPN 05/19/24 documented as of this encounter
--- OUTSIDE RECORDS SUMMARY | 2024-07-29 20:20 | XMS_ITS | Encounter Summary ---
Author Organization [facility] Address [address] [place] [address] Care Team Providers Care Lens Dotter Name Role Phone Malcolm Cid MD Primary Care Provider [phone] Source Comments In the event this information is protected by the Federal Confidentiality of Alcohol and Drug AbusePatient Records regulations: The Federal rules restrict any use of the information to criminally investigate or prosecute any alcohol or drug abuse patient.[facility] Encounter Details Date Type Department Care Team (Late st Contact Info) Description 07/29/2017 Patient Msg Neurology [address] [place] [address] Provider, [facility]cf Follow up - Dr Castro Social History Tobacco Use [...] 10/03/2024 8:00 AM EDT Office Visit Rheumatology [address] [place] [address] [place] [address] [place] [address] Return in about 9 months (around 10/03/2024). documented as of this encounter Visit Diagnoses Not on filedocumented in this encounter Care Teams Lens Dotter Relationship Specialty Start Date End Date Malcolm Cid MD PCP - General Family Medicine 01/07/15 documented as of this encounter
--- OUTSIDE RECORDS SUMMARY | 2024-07-29 20:20 | XMS_ITS | Encounter Summary ---
Author Organization [facility] Address [address] [place] [address] Care Team Providers Care Machinist Outside Name Role Phone Malcolm Cid MD Primary Care Provider Malcolm Cid MD Unavailable Merry Paz LPN Unavailable Unavailable Reason for Visit * Reason Onset Date Comments Med Refill 07/26/2024 Encounter Details Date Type Department Care Team (Late st Contact Info) Description 07/26/2024 Refill [facility] [address] [place] [address] Nikky Jacobson 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 rheumatoid factor ([facility]) Social History Tobacco Use Types Packs/Day Years Used Date Smoking Tobacco: Every Day Cigarettes 1.5 16.4 Started: 02/26/2008 Smokeless Tobacco: Current Chew Alcohol Use Standard [...] care, and heating? Not very hard 10/10/2023 PHQ-2 Answer Date Recorded Patient Health Questionnaire-2 Score 0 05/18/2024 [facility] [place] of Occupat ional Health - Occupational Stress [...] place to sleep or slept in a assisted (including now)? No 09/14/2022 Housing Stability Vital Sign Answer Sohail e Recorded In the last 12 months, was t here a time when you were not able to pay the mortgage or rent on time? Yes 10/10/2023 In the past 12 months, how m any times have you moved where you were living? 0 10/10/2023 At any time in the past 12 m [facility], were you homeless or living in a assisted (including now)? No 10/10/2023 Sex and Gender Information Value Date Recorded Sex Assigned at Male 09/08/2022 2:56 PM EDT Legal Sex Male 6:55 PM EDT Gender Identity Male 09/08/2022 2:56 PM EDT Sexual Orientation Straight 09/08/2022 2: 56 PM EDT documented as of this encounter Miscellaneous Notes * Telephone Encounter - ISIS Vera - 07/26/2024 9:35 AM EDT Tramadol already sent. documented in this encounter Plan of Treatment Not on file documented as of this encounter Visit Diagnoses Diagnosis 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) documented in this encounter Care Teams Machinist Outside Relationship Specialty Start Date End Date Malcolm Cid MD 112 [facility] 110 [place] [address] PCP - General Family Medicine 07/29/22 Malcolm Cid MD 112 [facility] 110 [place] [address] PCP - [facility] 05/30/22 Merry Paz LPN 05/19/24 documented as of this encounter
--- OUTSIDE RECORDS SUMMARY | 2024-07-29 20:20 | XMS_ITS | Encounter Summary ---
Author Organization [facility] Address [address] [place] [address] Care Team Providers Care Lens Grinder Rough Name Role Phone Malcolm Cid MD Primary Care Provider [phone] Malcolm Cid MD Unavailable Wednesday, Alma AQUINON Unavailable [phone] Jayne Del Valle RN Unavailable [phone] Merry Paz STEFFEN HOUSE SUPERVISOR Unavailable Unavailable Encounter Details Date Type Department Care Team (Late st Contact Info) Description 09/29/2022 Orders Only [facility] [address] [place] [address] A, Unknown Practice [address] [place] [address] Social History Tobacco Use Types Packs/Day Years Used Date Smoking Tobacco: Never Smokeless Tobacco: Never Humiliation, Afraid, Rape, and Kick questionnair e [...] 09/14/2022 How often do you attend chur ch or cheondoism services? More than 4 times per year 09/14/2022 Do you belong to any clubs o r organizations such as advent groups, unions, fraternal or athletic groups, or [...] care, and heating? Not very hard 09/14/2022 [facility] of Occupat ionnj Health - Occupational Stress Questionnaire Answer Date [...] place to sleep or slept in a retirement (including now)? No 09/14/2022 Sex and Gender [...] suspected to have Coronavirus/COVID-19? No / Unsure 09/14/2022 4:12 PM EDT documented as of this encounter Plan of Treatment Not on file documented as of this encounter Procedures Procedure Name Priority Date/Time Associated Diagnosis Comments CT HEAD FOR BRAINLAB W/O CONTRAST Routine 09/28/2022 7:56 AM EDT XR CHEST 1 VIEW Routine 09/28/2022 7:55 AM EDT documented in this encounter Results * CT HEAD FOR BRAINLAB W/O CONTRAST (09/28/2022 7:56 AM EDT) Anatomical Region Laterality Modality Radiographic Claire ging us Unknown Practice A IMG XR PROCEDURES Final Resul t * XR chest 1 view (09/28/2022 7:55 AM EDT) Anatomical Region Laterality Modality Chest Radiographic Claire ging us Unknown Practice A IMG XR PROCEDURES Final Resul t documented in this encounter Visit Diagnoses Not on filedocumented in this encounter Care Teams Lens Grinder Rough Relationship Specialty Start Date End Date Malcolm Cid MD [address] [place] [address] PCP - General Family Medicine 07/29/22 Malcolm Cid MD [address] [place] [address] PCP - [facility] 05/30/22Wednesday, BREE Marquez [address] [place] [address] Licensed Practical Nurse Family Medicine 06/04/23 Jayne Del Valle, RN Licensed Practical Nurse Family Medicine 04/07/2404/30 Merry Paz LPN 05/19/24 documented as of this encounter
--- OUTSIDE RECORDS SUMMARY | 2024-07-29 20:20 | XMS_ITS | Encounter Summary ---
Author Organization [facility] Address [facility] [place] [address] Care Team Providers Care Orthopaedic Technologist Name Role Phone Malcolm Cid MD Primary Care Provider [phone] Source Comments In the event this information is protected by the Federal Confidentiality of Alcohol and Drug AbusePatient Records regulations: The Federal rules restrict any use of the information to criminally investigate or prosecute any alcohol or drug abuse patient.[facility] Encounter Details Date Type Department Care Team (Late st Contact Info) Description 12/25/2020 Get Medical Advice Kidney Medicine [address] [place], [place] [id number] Madonna Serrano, SPEECH SCIENTIST.SALAD COUNTER ATTENDANT [address] [place] [address] RE: Visit Follow Up Question Social History Tobacco Use Types Packs/Day Years Used Date Smoking Tobacco: Never Smokeless Tobacco: Current Chew PHQ-2 Answer Date Recorded PHQ-2 score 3 08/19/2020 Area Deprivation Index Answer Date Adis rded National Score (1-100), lower number is lower ri sk Not on file 02/05/2020 State Score (1-10), lower number is lower risk N ot on file 02/05/2020 Data from: https://www.neighborhoodatlas.[facility]/. Last address used for calculation Not [...] have Coronavirus / COVID-19? No / Unsure 12/23/2020 8:07 AM EDT documented as of this encounter [...] 10/03/2024 8:00 AM EDT Office Visit Rheumatology [address] [place], [place] [address] [place] [address] [place], [place] [id number] Return in about 9 months (around 10/03/2024). documented as of this encounter Visit Diagnoses Not on filedocumented in this encounter Care Teams Orthopaedic Technologist Relationship Specialty Start Date End Date Malcolm Cid MD PCP - General Family Medicine 01/07/15 documented as of this encounter
--- OUTSIDE RECORDS SUMMARY | 2024-07-29 20:20 | XMS_ITS | Encounter Summary ---
Author Organization [facility] Address [address] [place] [address] Care Team Providers Care Director Community Organization Name Role Phone Malcolm Cid MD Primary Care Provider [phone] Malcolm Cid MD Unavailable Wednesday, Alma AQUINON Unavailable [phone] Jayne Del Valle RN Unavailable Merry Paz EMPLOYMENT SPECIALIST Unavailable Unavailable Encounter Details Date Type Department Care Team (Late st Contact Info) Description 01/04/2024 Abstract [facility] [address] [facility] [address] [place] [phone] Malcolm Cid MD 112 [facility] 110 [place], [place] [id number] Social History Tobacco Use Types Packs/Day Years [...] week 10/10/2023 How often do you attend [facility] or confucianist services? More than 4 times per year 10/10/2023 Do you belong to any clubs o r organizations such as worship groups, unions, fraternal or athletic groups, or [...] care, and heating? Not very hard 10/10/2023 [facility] [place] of Occupat ional Health - Occupational Stress [...] place to sleep or slept in a chcf (including now)? No 09/14/2022 Housing Stability Vital Sign Answer Shoail e Recorded In the last 12 months, was t here a time when you were not able to pay the mortgage or rent on time? Yes 10/10/2023 In the past 12 months, how m any times have you moved where you were living? 0 10/10/2023 At any time in the past 12 m [facility], were you homeless or living in a chcf (including now)? No 10/10/2023 Sex and Gender [...] on filedocumented in this encounter Care Teams Director Community Organization Relationship Specialty Start Date End Date Malcolm Cid MD [address] [place] [address] PCP - General Family Medicine 07/29/22 Malcolm Cid MD [address] [place] [address] PCP - [facility] 05/30/22Wednesday, BREE Marquez [address] [place] [address] Licensed Practical Nurse Family Medicine 06/04/23 Jayne Del Valle, RN Licensed Practical Nurse Family Medicine 04/07/2404/30 Merry Paz LPN 05/19/24 documented as of this encounter
--- OUTSIDE RECORDS SUMMARY | 2024-07-29 20:20 | XMS_ITS | Encounter Summary ---
Author Organization [facility] Address [address] [place] [address] Care Team Providers Care Admissions Manager Name Role Phone Malcolm Cid MD Primary Care Provider [phone] Malcolm Cid MD Unavailable Wednesday, Alma AQUINON Unavailable [phone] Jayne Del Valle RN Unavailable Merry Paz SHEET METAL LAY OUT WORKER Unavailable Unavailable Encounter Details Date Type Department Care Team (Late st Contact Info) Description 02/16/2023 Abstract [facility] [address] [facility] [address] [place] [id number] Malcolm Cid MD 112 [facility] [address] [place], [place] [id number] Social History Tobacco Use Types Packs/Day Years [...] care, and heating? Not very hard 09/14/2022 [facility] of Occupat ional Health - Occupational [...] filedocumented in this encounter Care Teams Admissions Manager Relationship Specialty Start Date End Date Malcolm Cid MD [address] [place] [address] PCP - General Family Medicine 07/29/22 Malcolm Cid MD [address] [place] [address] [address] - [facility] 05/30/22Wednesday, BREE Marquez [address] [place] [address] Licensed Practical Nurse Family Medicine 06/04/23 Jayne Del Valle, RN Licensed Practical Nurse Family Medicine 04/07/2404/30 Merry Paz LPN 05/19/24 documented as of this encounter
--- OUTSIDE RECORDS SUMMARY | 2024-07-29 20:20 | XMS_ITS | Encounter Summary ---
Author Organization [facility] Address [facility] [place] [address] Care Team Providers Care Ornamental Machine Operator Name Role Phone Malcolm Cid MD Primary Care Provider [phone] Source Comments In the event this information is protected by the Federal Confidentiality of Alcohol and Drug AbusePatient Records regulations: The Federal rules restrict any use of the information to criminally investigate or prosecute any alcohol or drug abuse patient.[facility] Encounter Details Date Type Department Care Team (Late st Contact Info) Description 12/23/2020 Patient Msg Kidney Medicine [address] [place], [place] [phone] Madonna Serrano, MEDICAL RECORD SPECIALIST.ACCESS REPRESENTATIVE [address] [place] [address] RE: BP Social History Tobacco Use Types Packs/Day Years Used Date Smoking Tobacco: Never Smokeless Tobacco: Current Chew PHQ-2 Answer Date Recorded PHQ-2 score 3 08/19/2020 Area Deprivation Index Answer Date Adis rded National Score (1-100), lower number is lower ri sk Not on file 02/05/2020 State Score (1-10), lower number is lower risk N ot on file 02/05/2020 Data from: https://www.neighborhoodatlas.[facility]/. Last address used for calculation Not [...] 10/03/2024 8:00 AM EDT Office Visit Rheumatology [address] [place], [place] [phone] [place] [address] [place], [place] [phone] Return in about 9 months (around 10/03/2024). documented as of this encounter Visit Diagnoses Not on filedocumented in this encounter Care Teams Ornamental Machine Operator Relationship Specialty Start Date End Date Malcolm Cid MD PCP - General Family Medicine 01/07/15 documented as of this encounter
--- OUTSIDE RECORDS SUMMARY | 2024-07-29 20:20 | XMS_ITS | Encounter Summary ---
Author Organization [facility] Address [address] [place] [address] Care Team Providers Care Heel Seat Flap Stapler Name Role Phone Malcolm Cid MD Primary Care Provider [phone] Malcolm Cid MD Unavailable Merry Paz LPN Unavailable Unavailable Reason for Visit * Reason Onset Date Comments Med Refill 07/26/2024 Encounter Details Date Type Department Care Team (Late st Contact Info) Description 07/26/2024 Refill [facility] [address] [facility] 110 [place] [address] Marina Proctor, PA 112 [facility] 110 [place], [place] [phone] 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 [...] Recorded Patient Health Questionnaire-2 Score 0 05/18/2024 [facility] [place] of Occupat ional Health - Occupational Stress [...] a senior care (including now)? No 09/14/2022 Housing Stability Vital Sign Answer Sohail e Recorded In the last 12 months, was t here a time when you were not able to pay the mortgage or rent on time? Yes 10/10/2023 In the past 12 months, how m any times have you moved where you were living? 0 10/10/2023 At any time in the past 12 m [facility], were you homeless or living in a senior care (including now)? No 10/10/2023 Sex and Gender Information Value Date Recorded Sex Assigned at Male 09/08/2022 2:56 PM EDT Legal Sex Male 6:55 PM EDT Gender Identity Male 09/08/2022 2:56 PM EDT Sexual Orientation Straight 09/08/2022 2: 56 PM EDT documented as of this encounter Miscellaneous Notes * Telephone Encounter - ISIS Vera - 07/26/2024 9:33 AM EDT OARRS reviewed, Rx sent into patient's pharmacy. documented in this encounter Plan of Treatment Not on file documented as of this encounter Visit Diagnoses Diagnosis 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 rheumatoid factor ([facility]) documented in this encounter Care Teams Heel Seat Flap Stapler Relationship Specialty Start Date End Date Malcolm Cid MD [address] [address] PCP - General Family Medicine 07/29/22 Malcolm Cid MD [address] [address] PCP - [facility] 05/30/22 Merry Paz LPN 05/19/24 documented as of this encounter
--- OUTSIDE RECORDS SUMMARY | 2024-07-29 20:20 | XMS_ITS | Encounter Summary ---
Author Organization [facility] Address [address] [place] [address] Care Team Providers Care Valve Assembler Name Role Phone Malcolm Cid MD Primary Care Provider [phone] Malcolm Cid MD Unavailable Wednesday, Alma AQUINON Unavailable [phone] Jayne Del Valle RN Unavailable Merry Paz ONBOARDING SPECIALIST Unavailable Unavailable Encounter Details Date Type Department Care Team (Late st Contact Info) Description 02/16/2023 Abstract [facility] [address] [facility] 110 [place] [id number] Malcolm Cid MD 112 [facility] 110 [place], [place] [id number] Social History Tobacco Use Types Packs/Day Years [...] How often do you attend chur or yazdanism services? More than 4 times per year 09/14/2022 Do you belong to any clubs o r organizations such as mu-ism groups, unions, fraternal or athletic groups, or [...] on filedocumented in this encounter Care Teams Valve Assembler Relationship Specialty Start Date End Date Malcolm Cid MD [address] [place] [address] PCP - General Family Medicine 07/29/22 Malcolm Cid MD [address] [place] [address] PCP - [facility] 05/30/22Wednesday, BREE Marquez [address] [place] [address] Licensed Practical Nurse Family Medicine 06/04/23 Jayne Del Valle, RN Licensed Practical Nurse Family Medicine 04/07/2404/30 Merry Paz LPN 05/19/24 documented as of this encounter
--- OUTSIDE RECORDS SUMMARY | 2024-07-29 20:20 | XMS_ITS | Encounter Summary ---
Author Organization [facility] Address [address] [place] [address] Care Team Providers Care Crystal Machining Coordinator Name Role Phone Malcolm Cid MD Primary Care Provider [phone] Source Comments In the event this information is protected by the Federal Confidentiality of Alcohol and Drug AbusePatient Records regulations: The Federal rules restrict any use of the information to criminally investigate or prosecute any alcohol or drug abuse patient.[facility] Encounter Details Date Type Department Care Team (Late st Contact Info) Description 12/02/2020 Patient Msg Rheumatology [address] [place], [place] [id number] [place] [address] [place] [address] Lab reminder Social History Tobacco Use Types Packs/Day Years Used Date Smoking Tobacco: Never Smokeless Tobacco: Current Chew PHQ-2 Answer Date Recorded PHQ-2 score 3 08/19/2020 Area Deprivation Index Answer Date Adis rded National Score (1-100), lower number is lower ri sk Not on file 02/05/2020 State Score (1-10), lower number is lower risk N ot on file 02/05/2020 Data from: https://www.neighborhoodatlas.[facility]/. Last address used for calculation Not on [...] Assessment Author No 04/26/2017 6:15 PM Oralia Hrutado RN documented as of this encounter Mental [...] 10/03/2024 8:00 AM EDT Office Visit Rheumatology [address] [place], [place] [id number] [place] [address] [place], [place] [id number] Return in about 9 months (around 10/03/2024). documented as of this encounter Visit Diagnoses Not on filedocumented in this encounter Care Teams Crystal Machining Coordinator Relationship Specialty Start Date End Date Malcolm Cid MD PCP - General Family Medicine 01/07/15 documented as of this encounter
--- OUTSIDE RECORDS SUMMARY | 2024-07-29 20:20 | XMS_ITS | Encounter Summary ---
Author Organization [facility] Address [address] [place] [address] Care Team Providers Care Sharepoint Solutions Architect Name Role Phone Malcolm Cid MD Primary Care Provider [phone] Malcolm Cid MD Unavailable Wednesday, Alma AQUINON Unavailable [phone] Jayne Del Valle RN Unavailable [phone] Merry Paz LPN Unavailable Unavailable Encounter [...] any clubs o r organizations such as catholic groups, unions, fraternal or athletic groups, [...] care, and heating? Not very hard 10/10/2023 [facility] Occupat ional Health - Occupational [...] a long term (including now)? No 09/14/2022 Housing Stability Vital Sign Answer Sohail e Recorded In the last 12 months, was t here a time when you were not able to pay the mortgage or rent on time? Yes 10/10/2023 In the past 12 months, how m any times have you moved where you were living? 0 10/10/2023 At any time in the past 12 m [facility], were you homeless or living in a long term (including now)? No 10/10/2023 Sex and Gender [...] Name Priority Date/Time Associated Diagnosis Comments XR KNEE 4V AP/PA/LAT/MERCH RAMIRO 01/04/2024 9:48 AM EST documented in this encounter Results * XR KNEE 4V AP/PA/LAT/MERCH RAMIRO (01/04/2024 9:48 AM EST) Anatomical Region Laterality Modality Other 01/04/2024 9:48 AM EST Narrative 01/04/2024 1:23 PM EST * * *Final Report* * [...] similar to 05/04/2017. Mild right knee osteoarthritis. Community Artist: [email or web address] Transcribe Date/Time: Jan 04 2024 12:48P Dictated by : CHELSEA REEVES MD This examination was interpreted and the report reviewed and electronically signed by: CHELSEA REEVES MD on Jan 04 2024 1:21PM EST [id number]^SI^ACN Procedure Note Radiology, Radiologist, - 01/04/2024 * [...] similar to 05/04/2017. Mild right knee osteoarthritis. Community Artist: [email or web address] Transcribe Date/Time: Jan 04 2024 12:48P Dictated by : CHELSEA REEVES MD This examination was interpreted and the report reviewed and electronically signed by: CHELSEA REEVES MD on Jan 04 2024 1:21PM EST [id number]^SI^ACN us Generic External Data Provider [facility] Final Result documented in this encounter Visit Diagnoses Not on filedocumented in this encounter Care Teams Sharepoint Solutions Architect Relationship Specialty Start Date End Date Malcolm Cid MD [address] [facility] 110 [place] [address] PCP - General Family Medicine 07/29/22 Malcolm Cid MD [address] [facility] 110 [place] [address] PCP - [facility] 05/30/22WednesdayAlam LPN [address] [place] [address] Licensed Practical Nurse Family Medicine 06/04/23 Jayne Del Valle, RN Licensed Practical Nurse Family Medicine 04/07/2404/30 Merry Paz LPN 05/19/24 documented as of this encounter
--- OUTSIDE RECORDS SUMMARY | 2024-07-29 20:20 | XMS_ITS | Encounter Summary ---
Author Organization [facility] Address [address] [place] [address] Care Team Providers Care Feeder/Folder Name Role Phone Malcolm Cid MD Primary Care Provider [phone] Malcolm Cid MD Unavailable Wednesday, Alma AQUINON Unavailable [phone] Jayne Del Valle RN Unavailable [phone] Merry Paz EVP MARKETING Unavailable Unavailable Encounter Details Date Type Department Care Team (Late st Contact Info) Description 12/03/2022 Orders Only [facility] [address] [place] [address] [place] [address] A, Unknown Practice [address] [place] [address] Social History Tobacco Use Types Packs/Day Years [...] often do you attend chur ch or bahai services? More than 4 times per year 09/14/2022 Do you belong to any clubs o r organizations such as mormon groups, unions, fraternal or athletic groups, or [...] and heating? Not very hard 09/14/2022 [facility] - Occupational Stress Questionnaire Answer Date [...] Date/Time Associated Diagnosis Comments ELECTROCARDIOGRAM REPORT Routine 023 8:39 AM EDT documented in this encounter Results * Electrocardiogram Report (12/02/2022 8:39 AM EDT) us Unknown Practice A IN CLINIC/BEDSIDE ORDERABLES Final Result documented in this encounter Visit Diagnoses Not on filedocumented in this encounter Care Teams Feeder/Folder Relationship Specialty Start Date End Date Malcolm Cid MD [address] [facility] 110 [place] [address] PCP - General Family Medicine 07/29/22 Malcolm Cid MD [address] [facility] 110 [place] [address] PCP - [facility] 05/30/22Wednesday, BREE Marquez 112 [place] [address] Licensed Practical Nurse Family Medicine 06/04/23 Jayne Del Valle, DELMIS Licensed Practical Nurse Family Medicine 04/07/2404/30 Merry Paz LPN 05/19/24 documented as of this encounter
--- OUTSIDE RECORDS SUMMARY | 2024-07-29 20:20 | XMS_ITS | Encounter Summary ---
Author Organization [facility] Address [address] [place] [address] Care Team Providers Care Industrial Refrigeration Mechanic Name Role Phone Malcolm Cid MD Primary Care Provider [phone] Source Comments In the event this information is protected by the Federal Confidentiality of Alcohol and Drug AbusePatient Records regulations: The Federal rules restrict any use of the information to criminally investigate or prosecute any alcohol or drug abuse patient.[facility] Encounter Details Date Type Department Care Team (Late st Contact Info) Description 01/01/2022 Patient Msg Rheumatology [address] [place], [place] [id number] [place] [address] [place] [address] Previsit lab reminder Social History Tobacco Use Types Packs/Day Years Used Date Smoking Tobacco: Never Smokeless Tobacco: Current Chew PHQ-2 Answer Date Recorded PHQ-2 score 3 08/19/2020 Area Deprivation Index Answer Date Adis rded National Score (1-100), lower number is lower ri sk Not on file 02/05/2020 State Score (1-10), lower number is lower risk N ot on file 02/05/2020 Data from: https://www.neighborhoodatlas.[facility]/. Last address used for calculation Not [...] suspected to have Coronavirus/COVID-19? No / Unsure 01/01/2022 11:34 AM EDT documented as of this encounter [...] 10/03/2024 8:00 AM EDT Office Visit Rheumatology [address] [place], [place] [id number] [place] [address] [place], [place] [id number] Return in about 9 months (around 10/03/2024). documented as of this encounter Visit Diagnoses Not on filedocumented in this encounter Care Teams Industrial Refrigeration Mechanic Relationship Specialty Start Date End Date Malcolm Cid MD PCP - General Family Medicine 01/07/15 documented as of this encounter
--- OUTSIDE RECORDS SUMMARY | 2024-07-29 20:20 | XMS_ITS | Encounter Summary ---
Author Organization [facility] Address [address] [place] [address] Care Team Providers Care Zipper Sewing Machine Operator Name Role Phone Malcolm Cid MD Primary Care Provider [phone] Malcolm Cid MD Unavailable Wednesday, Alma TAG WRITER Unavailable [phone] Jayne Del Valle RN Unavailable Merry Paz TAG WRITER Unavailable Unavailable Encounter Details Date Type Department Care Team (Late st Contact Info) Description 08/10/2022 Orders Only [facility] [address] [facility] 110 [place] [address] Stephen Shields MD [address] [facility] 110 [place] [address] Social History Tobacco Use Types Packs/Day Years Used Date Smoking Tobacco: Never Assessed Sex and Gender Information Value Date Recorded Sex Assigned at Male 09/08/2022 2:56 PM EDT Legal Sex Male 6:55 PM EDT Gender Identity Male 09/08/2022 2:56 PM EDT Sexual Orientation Straight 09/08/2022 2: 56 PM EDT documented as of this encounter Plan of Treatment Not on file documented as of this encounter Procedures Procedure Name Priority Date/Time Associated Diagnosis Comments XR CHEST 1 VIEW Routine 08/07/2022 2:43 PM EDT documented in this encounter Results * XR chest 1 view (08/07/2022 2:43 PM EDT) Anatomical Region Laterality Modality Chest Radiographic Claire ging Stephen Shields MD IMG XR PROCEDURES Final Result documented in this encounter Visit Diagnoses Not on filedocumented in this encounter Care Teams Zipper Sewing Machine Operator Relationship Specialty Start Date End Date Malcolm Cid MD [address] [place] [address] PCP - General Family Medicine 07/29/22 Malcolm Cid MD [address] [place] [address] PCP - [facility] 05/30/22WednesdayAlma LPN [address] [place] [address] Licensed Practical Nurse Family Medicine 06/04/23 Jayne Del Valle, RN Licensed Practical Nurse Family Medicine 04/07/2404/30 Merry Paz LPN 05/19/24 documented as of this encounter
--- OUTSIDE RECORDS SUMMARY | 2024-07-29 20:20 | XMS_ITS | Encounter Summary ---
Author Organization [facility] Address [address] [place] [address] Care Team Providers Care Auto Mechanic Name Role Phone Malcolm Cid MD Primary Care Provider [phone] Source Comments In the event this information is protected by the Federal Confidentiality of Alcohol and Drug AbusePatient Records regulations: The Federal rules restrict any use of the information to criminally investigate or prosecute any alcohol or drug abuse patient.[facility] Encounter Details Date Type Department Care Team (Late st Contact Info) Description 09/28/2017 Patient Msg Medical Records [address] [place] [address] Provider, [facility] Oct lab reminder Social History Tobacco Use Types [...] 10/03/2024 8:00 AM EDT Office Visit Rheumatology [address] [place] [address] [place] [address] [place] [address] Return in about 9 months (around 10/03/2024). documented as of this encounter Visit Diagnoses Not on filedocumented in this encounter Care Teams Auto Mechanic Relationship Specialty Start Date End Date Malcolm Cid MD PCP - General Family Medicine 01/07/15 documented as of this encounter
--- OUTSIDE RECORDS SUMMARY | 2024-07-29 20:20 | XMS_ITS | Encounter Summary ---
Author Organization [facility] Address [address] [place] [address] Care Team Providers Care Senior Controls Analyst Name Role Phone Malcolm Cid MD Primary Care Provider [phone] Malcolm Cid MD Unavailable Wednesday, Alma AQUINON Unavailable [phone] Jayne Del Valle RN Unavailable [phone] Merry Paz SUSPENDER CUTTER Unavailable Unavailable Encounter Details Date Type Department Care Team (Late st Contact Info) Description 02/09/2023 Abstract [facility] [address] [facility] 110 [place] [phone] Malcolm Cid MD 112 [facility] 110 [place], [place] [id number] Social History Tobacco Use Types Packs/Day Years [...] How often do you attend chur or oriental orthodox services? More than 4 times per year 09/14/2022 Do you belong to any clubs o r organizations such as gnosticist groups, unions, fraternal or athletic groups, or [...] care, and heating? Not very hard 09/14/2022 [facility] Occupat ional Health - [...] filedocumented in this encounter Care Teams Senior Controls Analyst Relationship Specialty Start Date End Date Malcolm Cid MD [address] [facility] 110 [place] [address] PCP - General Family Medicine 07/29/22 Malcolm Cid MD [address] [facility] 110 [place] [address] PCP - [facility] 05/30/22Wednesday, BREE Marquez 112 [facility] [address] [place] [address] Licensed Practical Nurse Family Medicine 06/04/23 Jayne Del Valle, DELMIS Licensed Practical Nurse Family Medicine 04/07/2404/30 Merry Paz LPN 05/19/24 documented as of this encounter
--- OUTSIDE RECORDS SUMMARY | 2024-07-29 20:20 | XMS_ITS | Encounter Summary ---
Author Organization [facility] Address [address] [place] [address] Care Team Providers Care Insurance Account Manager Name Role Phone Malcolm Cid MD Primary Care Provider [phone] Malcolm Cid MD Unavailable Wednesday, Alma ON CALL PHARMACY TECHNICIAN Unavailable Jayne Del Valle RN Unavailable [phone] Merry Paz ON CALL PHARMACY TECHNICIAN Unavailable Unavailable Encounter Details Date Type Department Care Team (Late st Contact Info) Description 08/17/2022 Abstract [facility] [address] [facility] 110 [place] [address] Malcolm Cid MD [address] [facility] 110 [place] [address] Social History Tobacco Use Types Packs/Day Years [...] on filedocumented in this encounter Care Teams Insurance Account Manager Relationship Specialty Start Date End Date Malcolm Cid MD [address] [facility] 110 [place], [place] [address] PCP - General Family Medicine 5/31/23 Malcolm Cid MD [address] [place] [address] PCP - [facility] 05/30/22Wednesday, BREE Marquez [address] [place] [address] Licensed Practical Nurse Family Medicine 06/04/23 Jayne Del Valle, RN Licensed Practical Nurse Family Medicine 04/07/2404/30 Merry Paz LPN 05/19/24 documented as of this encounter
--- OUTSIDE RECORDS SUMMARY | 2024-07-29 20:20 | XMS_ITS | Encounter Summary ---
Author Organization [facility] Address [address] [place] [address] Care Team Providers Care Insole Department Worker Name Role Phone Malcolm Sears MD Primary Care Provider [phone] Malcolm Sears MD Unavailable Wednesday, Alma AQUINON Unavailable [phone] Jayne Del Valle RN Unavailable [phone] Merry Paz INTERVENTIONAL RADIOLOGIST Unavailable Unavailable Reason for Visit * Reason Onset Date Comments Med Refill 02/04/2024 Encounter Details Date Type Department Care Team (Late st Contact Info) Description 02/04/2024 Refill [facility] [address] [facility] 110 [place] [address] Marina Proctor, PA [address] [place] [address] 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 rheumatoid factor ([facility]) Social History Tobacco Use Types Packs/Day Years [...] often do you attend [facility] or protestant services? More than 4 times per year [...] care, and heating? Not very hard 10/10/2023 [facility] of Occupat ional Health - Occupational Stress [...] in the past [address] [facility], were you homeless or living in [...] * Telephone Encounter - ISIS Vera - 02/04/2024 9:31 AM EST I will send in one more steroid taper for patient, but if he is still having significant issues he should contact his Rheumatology for further instructions for managing the flare up. * Telephone Encounter - Roseanna [place]more - 02/04/2024 8:59 AM EST predniSONE (Deltasone) 10 MG tablet [facility] - patient did ask for tramadol but I did relay the message that dr sears said he will no longer be sending that in for him as he states he needs to be off of it. documented in this encounter Plan of Treatment Not on file documented as of this encounter Visit Diagnoses Diagnosis 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 rheumatoid factor ([facility]) documented in this encounter Care Teams Insole Department Worker Relationship Specialty Start Date End Date Malcolm Sears MD [address] [place] [address] PCP - General Family Medicine 07/29/22 Malcolm Sears MD [address] [place] [address] PCP - [facility] 05/30/22WednesdayAlma LPN [address] [place] [address] Licensed Practical Nurse Family Medicine 06/04/23 Jayne Del Valle, DELMIS Licensed Practical Nurse Family Medicine 04/07/2404/30 Merry Paz LPN 05/19/24 documented as of this encounter
--- OUTSIDE RECORDS SUMMARY | 2024-07-29 20:20 | XMS_ITS | Encounter Summary ---
Author Organization [facility] Address [address] [place] [address] Care Team Providers Care Precision Inspector Name Role Phone Malcolm Cid MD Primary Care Provider [phone] Malcolm Cid MD Unavailable Wednesday, Alma AQUINON Unavailable Jayne Del Valle RN Unavailable [phone] Merry Paz SERVICE DESK ANALYST Unavailable Unavailable Encounter Details Date Type Department Care Team (Late st Contact Info) Description 01/12/2023 Abstract [facility] [address] [facility] 110 [place] [address] Malcolm Cid MD 112 [facility] 110 [place], [place] [id number] Social History Tobacco Use Types Packs/Day Years [...] How often do you attend chur or mormon services? More than 4 times per year [...] care, and heating? Not very hard 09/14/2022 [facility] of Occupat ional Health - Occupational Stress [...] on filedocumented in this encounter Care Teams Precision Inspector Relationship Specialty Start Date End Date Malcolm Cid MD 112 [facility] 110 [place] [address] PCP - General Family Medicine 07/29/22 Malcolm Cid MD [address] [facility] 110 [place] [address] PCP - [facility] 05/30/22Wednesday, BREE Marquez 112 [facility] [address] [place] [address] Licensed Practical Nurse Family Medicine 06/04/23 Jayne Del Valle, DELMIS Licensed Practical Nurse Family Medicine 04/07/2404/30 Merry Paz LPN 05/19/24 documented as of this encounter
--- OUTSIDE RECORDS SUMMARY | 2024-07-29 20:20 | XMS_ITS | Encounter Summary ---
Author Organization [facility] Address [address] [place] [address] Care Team Providers Care Quantitative Analyst Marketing Name Role Phone Malcolm Cid MD Primary Care Provider [phone] Malcolm Cid MD Unavailable Wednesday, Alma AQUINON Unavailable [phone] Jayne Del Valle RN Unavailable Merry Paz MANAGER PROTEIN Unavailable Unavailable Reason for Visit * Reason Comments Med Refill Encounter Details Date Type Department Care Team (Late st Contact Info) Description 12/03/2022 Refill [facility] [address] [facility] 110 [place] [address] Marina Proctor, PA [address] [facility] 110 [place] [address] Rheumatoid arthritis, unspecified (CMS/HCC) Social History Tobacco Use Types Packs/Day [...] How often do you attend chur or muslim services? More than 4 times per year [...] care, and heating? Not very hard 09/14/2022 [facility] Occupat ional Health - Occupational [...] * Telephone Encounter - ISIS Vera - 12/04/2022 8:30 AM EDT OARRS reviewed, Rx sent into patient's pharmacy. Please help pt get set up for routine medication follow up, due 12/16 or close after. documented in this encounter Plan of Treatment Not on file documented as of this encounter Visit Diagnoses Diagnosis Rheumatoid arthritis, unspecified documented in this encounter Care Teams Quantitative Analyst Marketing Relationship Specialty Start Date End Date Malcolm Cid MD [address] [facility] 110 [place] [address] PCP - General Family Medicine 07/29/22 Malcolm Cid MD [address] [place] [address] PCP - [facility] 05/30/22Wednesday, BREE Marquez [address] [place] [address] Licensed Practical Nurse Family Medicine 06/04/23 Jayne Del Valle, RN Licensed Practical Nurse Family Medicine 04/07/2404/30 Merry Paz LPN 05/19/24 documented as of this encounter
--- OUTSIDE RECORDS SUMMARY | 2024-07-29 20:20 | XMS_ITS | Encounter Summary ---
Author Organization [facility] Address [address] [place] [address] Care Team Providers Care Electronics Engineering Professor Name Role Phone Malcolm Cid MD Primary Care Provider [phone] Malcolm Cid MD Unavailable Wednesday, Alma AQUINON Unavailable [phone] Jayne Del Valle RN Unavailable [phone] Merry Paz TOWEL INSPECTOR Unavailable Unavailable Encounter Details Date Type Department Care Team (Late st Contact Info) Description 02/15/2023 Abstract [facility] [address] [facility] 110 [place] [id number] Malcolm Cid MD 112 [facility] 110 [place], [place] [phone] Social History Tobacco Use Types Packs/Day Years [...] How often do you attend chur or restoration services? More than 4 times per year 09/14/2022 Do you belong to any clubs o r organizations such as adventist groups, unions, fraternal or athletic groups, or [...] care, and heating? Not very hard 09/14/2022 [facility] of Occupat ional Health - [...] on filedocumented in this encounter Care Teams Electronics Engineering Professor Relationship Specialty Start Date End Date Malcolm Cid MD [address] [place] [address] PCP - General Family Medicine 07/29/22 Malcolm Cid MD [address] [place] [address] PCP - [facility] 05/30/22Wednesday, BREE Marquez [address] [place] [address] Licensed Practical Nurse Family Medicine 06/04/23 Jayne Del Valle, RN Licensed Practical Nurse Family Medicine 04/07/2404/30 Merry Paz LPN 05/19/24 documented as of this encounter
--- OUTSIDE RECORDS SUMMARY | 2024-07-29 20:20 | XMS_ITS | Encounter Summary ---
Author Organization [facility] Address [address] [place] [address] Care Team Providers Care Assistant Pastry Chef Name Role Phone Malcolm Cid MD Primary Care Provider [phone] Malcolm Cid MD Unavailable Wednesday, Alma AQUINON Unavailable [phone] Jayne Del Valle RN Unavailable Merry Paz ANGIOGRAPHY NURSE Unavailable Unavailable Encounter Details Date Type Department Care Team (Late st Contact Info) Description 02/17/2023 Abstract [facility] [address] [facility] 110 [place] [id number] Malcolm Cid MD 112 [facility] 110 [place], [place] [id number] Social History Tobacco Use Types Packs/Day Years [...] How often do you attend chur or restorationism services? More than 4 times per year [...] on filedocumented in this encounter Care Teams Assistant Pastry Chef Relationship Specialty Start Date End Date Malcolm Cid MD [address] [place] [address] PCP - General Family Medicine 07/29/22 Malcolm Cid MD [address] [place] [address] PCP - [facility] 05/30/22Wednesday, BREE Marquez [address] [place] [address] Licensed Practical Nurse Family Medicine 06/04/23 Jayne Del Valle, RN Licensed Practical Nurse Family Medicine 04/07/2404/30 Merry Paz LPN 05/19/24 documented as of this encounter
--- OUTSIDE RECORDS SUMMARY | 2024-07-29 20:20 | XMS_ITS | Encounter Summary ---
Author Organization [facility] Address [address] [place] [address] Care Team Providers Care Resource Recovery Engineer Name Role Phone Malcolm Cid MD Primary Care Provider [phone] Malcolm Cid MD Unavailable Wednesday, Alma AQUINON Unavailable [phone] Jayne Del Valle RN Unavailable Merry Paz WALL CLEANER Unavailable Unavailable Encounter Details Date Type Department Care Team (Late st Contact Info) Description 02/15/2023 Abstract [facility] [address] [facility] 110 [place] [address] Malcolm Cid MD 112 [facility] 110 [place], [place] [id number] Social History Tobacco Use Types Packs/Day Years [...] How often do you attend chur or hinduism services? More than 4 times per year [...] care, and heating? Not very hard 09/14/2022 [facility] of Occupat ional Health - Occupational Stress [...] on filedocumented in this encounter Care Teams Resource Recovery Engineer Relationship Specialty Start Date End Date Malcolm Cid MD [address] [place] [address] PCP - General Family Medicine 07/29/22 Malcolm Cid MD [address] [place] [address] PCP - [facility] 05/30/22Wednesday, BREE Marquez [address] [place] [address] Licensed Practical Nurse Family Medicine 06/04/23 Jayne Del Valle, RN Licensed Practical Nurse Family Medicine 04/07/2404/30 Merry Paz LPN 05/19/24 documented as of this encounter
--- OUTSIDE RECORDS SUMMARY | 2024-07-29 20:20 | XMS_ITS | Encounter Summary ---
Author Organization [facility] Address [address] [place] [address] Care Team Providers Care Serials Librarian Name Role Phone Malcolm Cid MD Primary Care Provider [phone] Source Comments In the event this information is protected by the Federal Confidentiality of Alcohol and Drug AbusePatient Records regulations: The Federal rules restrict any use of the information to criminally investigate or prosecute any alcohol or drug abuse patient.[facility] Encounter Details Date Type Department Care Team (Late st Contact Info) Description 09/27/2017 Patient Msg Pediatric Rheumatology [address] [place], [place] [id number] Provider, Ccf Regarding refill request Social History Tobacco Use Types Packs/Day Years [...] 10/03/2024 8:00 AM EDT Office Visit Rheumatology [address] [place] [address] [place] [address] [place] [address] Return in about 9 months (around 10/03/2024). documented as of this encounter Visit Diagnoses Not on filedocumented in this encounter Care Teams Serials Librarian Relationship Specialty Start Date End Date Malcolm Cid MD PCP - General Family Medicine 01/07/15 documented as of this encounter
--- OUTSIDE RECORDS SUMMARY | 2024-07-29 20:20 | XMS_ITS | Encounter Summary ---
Author Organization [facility] Address [address] [place] [address] Care Team Providers Care Imaging Account Manager Name Role Phone Malcolm Cid MD Primary Care Provider [phone] Malcolm Cid MD Unavailable Merry Paz LPN Unavailable Unavailable Reason for Visit * Reason Onset Date Comments Med Refill 07/20/2024 Encounter Details Date Type Department Care Team (Late st Contact Info) Description 07/20/2024 Refill [facility] [address] [facility] 110 [place] [address] Marina Proctor, PA 112 [facility] 110 [place], [place] [id number] 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 [...] any clubs o r organizations such as adventism groups, unions, fraternal or athletic groups, or [...] Recorded Patient Health Questionnaire-2 Score 0 05/18/2024 [facility] of Occupat ional Health - Occupational Stress [...] in a usp (including now)? No 09/14/2022 Housing Stability Vital Sign Answer Sohail e Recorded In the last 12 months, was t here a time when you were not able to pay the mortgage or rent on time? Yes 10/10/2023 In the past 12 months, how m any times have you moved where you were living? 0 10/10/2023 At any time in the past 12 m [facility], were you homeless or living in a usp (including now)? No 10/10/2023 Sex and Gender Information Value Date Recorded Sex Assigned at Male 09/08/2022 2:56 PM EDT Legal Sex Male 6:55 PM EDT Gender Identity Male 09/08/2022 2:56 PM EDT Sexual Orientation Straight 09/08/2022 2: 56 PM EDT documented as of this encounter Miscellaneous Notes * Telephone Encounter - ISIS Vera - 07/20/2024 3:10 PM EDT Medrol dose coco sent. Patient was just weaned off of the Dow. He needs to use the Tramadol as needed. * Telephone Encounter - Jayne Us MA - 07/20/2024 10:00 AM EDT Patient comment: Gouty/ RA flare coming on the last two days. Not allowing to request prednisone either. documented in this encounter Plan of Treatment Not on file documented as of this encounter Visit Diagnoses Diagnosis 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 rheumatoid factor ([facility]) documented in this encounter Care Teams Imaging Account Manager Relationship Specialty Start Date End Date Malcolm Cid MD 112 [facility] 110 [place] [address] PCP - General Family Medicine 07/29/22 Malcolm Cid MD 112 [facility] 110 [place] [address] PCP - [facility] 05/30/22 eMrry Paz LPN 05/19/24 documented as of this encounter
--- OUTSIDE RECORDS SUMMARY | 2024-07-29 20:20 | XMS_ITS | Encounter Summary ---
Author Organization [facility] Address [address] [place] [address] Care Team Providers Care Junior Administrative Assistant Name Role Phone Malcolm Cid MD Primary Care Provider [phone] Malcolm Cid MD Unavailable Wednesday, Alma AQUINON Unavailable [phone] Jayne Del Valle RN Unavailable Merry Paz WILLOW ANALYST Unavailable Unavailable Encounter Details Date Type Department Care Team (Late st Contact Info) Description 01/17/2024 Abstract [facility] 112 [facility] 110 [place] [phone] Malcolm Cid MD 112 [facility] 110 [place], [place] [address] Social History Tobacco Use Types Packs/Day Years [...] How often do you attend chur or evangelical services? More than 4 times per year [...] care, and heating? Not very hard 10/10/2023 [facility] of Occupat ional Health - Occupational Stress [...] time in the past 12 m [facility], were you homeless or living in [...] on filedocumented in this encounter Care Teams Junior Administrative Assistant Relationship Specialty Start Date End Date Palak, Rugen M, MD [address] [place] [address] PCP - General Family Medicine 07/29/22 Malcolm Cid MD [address] [place] [address] PCP - [facility] 05/30/22Wednesday, BREE Marquez [address] [place] [address] Licensed Practical Nurse Family Medicine 06/04/23 Jayne Del Valle, RN Licensed Practical Nurse Family Medicine 04/07/2404/30 Merry Paz LPN 05/19/24 documented as of this encounter
--- OUTSIDE RECORDS SUMMARY | 2024-07-29 20:20 | XMS_ITS | Encounter Summary ---
Author Organization [facility] Address [address] [place] [address] Care Team Providers Care Customer Accounts Advisor Name Role Phone Malcolm Cid MD Primary Care Provider [phone] Malcolm Cid MD Unavailable Wednesday, Alma AQUINON Unavailable [phone] Jayne Del Valle RN Unavailable Merry Paz MARKET MAKER Unavailable Unavailable Encounter Details Date Type Department Care Team (Late st Contact Info) Description 12/16/2022 Abstract [facility] [address] [facility] 110 [place] [address] Marina Proctor, PA 112 [facility] 110 [place], [place] [phone] Social History Tobacco Use Types Packs/Day Years Used Date Smoking Tobacco: Never Smokeless Tobacco: Never Tobacco Cessation:Counseling Given: Not Answered Alcohol Use Standard Drinks/Week Comments Yes 2 [...] How often do you attend chur or shinto services? More than 4 times per year [...] care, and heating? Not very hard 09/14/2022 [facility] of Occupat ional Health - [...] on filedocumented in this encounter Care Teams Customer Accounts Advisor Relationship Specialty Start Date End Date Malcolm Cid MD [address] [facility] 110 [place] [address] PCP - General Family Medicine 07/29/22 Malcolm Cid MD [address] [facility] 110 [place] [address] PCP - [facility] 05/30/22Wednesday, BREE Marquez [address] [place] [address] Licensed Practical Nurse Family Medicine 06/04/23 Jayne Del Valle, DELMIS Licensed Practical Nurse Family Medicine 04/07/2404/30 Merry Paz LPN 05/19/24 documented as of this encounter
--- OUTSIDE RECORDS SUMMARY | 2024-07-29 20:20 | XMS_ITS | Encounter Summary ---
Author Organization [facility] Address [address] [place] [address] Care Team Providers Care Mill Order Scheduler Name Role Phone Malcolm Cid MD Primary Care Provider [phone] Source Comments In the event this information is protected by the Federal Confidentiality of Alcohol and Drug AbusePatient Records regulations: The Federal rules restrict any use of the information to criminally investigate or prosecute any alcohol or drug abuse patient.[facility] Encounter Details Date Type Department Care Team (Late st Contact Info) Description 09/15/2021 Patient Msg Rheumatology [address] [place], [place] [phone] [place] [address] [place] [address] Lab results/orders Social History Tobacco Use Types Packs/Day Years Used Date Smoking Tobacco: Never Smokeless Tobacco: Current Chew PHQ-2 Answer Date Recorded PHQ-2 score 3 08/19/2020 Area Deprivation Index Answer Date Adis rded National Score (1-100), lower number is lower ri sk Not on file 02/05/2020 State Score (1-10), lower number is lower risk N ot on file 02/05/2020 Data from: https://www.neighborhoodatlas.[facility]/. Last address used for calculation Not on file 02/05/2020 Sex and Gender Information Value Date Recorded Sex Assigned at Male 11/09/2019 12:50 PM EDT Legal Sex Male 3:20 PM EST Gender Identity Male 11/09/2019 12:50 PM EDT Sexual Orientation Straight 11/09/2019 12 :50 PM EDT COVID-19 Exposure Response Date Recorded In the last 10 days, have valeria u been in contact with someone who was confirmed or suspected to have Coronavirus/COVID-19? No / Unsure 09/11/2021 8:41 AM EDT documented as of this encounter [...] Entry Date Author No 04/26/2017 6:15 PM Sa kianna Hurtado RN documented in this encounter Plan of Treatment Upcoming Encounters Date Type Department Care Team (Late st Contact Info) Description 10/03/2024 8:00 AM EDT Office Visit Rheumatology [address] [place], [place] [phone] [place] [address] [place], [place] [phone] Return in about 9 months (around 10/03/2024). documented as of this encounter Visit Diagnoses Not on filedocumented in this encounter Care Teams Mill Order Scheduler Relationship Specialty Start Date End Date Malcolm Cid MD PCP - General Family Medicine 01/07/15 documented as of this encounter
--- OUTSIDE RECORDS SUMMARY | 2024-07-29 20:20 | XMS_ITS | Encounter Summary ---
Author Organization [facility] Address [address] [place] [address] Care Team Providers Care Induction Coordination Engineer Name Role Phone Malcolm Cid MD Primary Care Provider [phone] Malcolm Cid MD Unavailable Wednesday, Alma AQUINON Unavailable [phone] Jayne Del Valle RN Unavailable [phone] Merry Paz STUDENT CAREER DEVELOPMENT SPECIALIST Unavailable Unavailable Encounter Details Date Type Department Care Team (Late st Contact Info) Description 02/09/2024 Abstract [facility] 112 [facility] [facility] 110 [place] [address] Malcolm Cid MD 112 [facility] 110 [place], [place] [phone] Social History Tobacco Use Types Packs/Day Years [...] How often do you attend chur or baptist services? More than 4 times per year 10/10/2023 Do you belong to any clubs o r organizations such as hinduism groups, unions, fraternal or athletic groups, or [...] care, and heating? Not very hard 10/10/2023 [facility] of Occupat ional Health - Occupational Stress [...] place to sleep or slept in a custodial (including now)? No 09/14/2022 Housing Stability Vital Sign Answer Sohail e Recorded In the last 12 months, was t here a time when you were not able to pay the mortgage or rent on time? Yes 10/10/2023 In the past 12 months, how m any times have you moved where you were living? 0 10/10/2023 At any time in the past 12 m [facility], were you homeless or living in a custodial (including now)? No 10/10/2023 Sex and Gender [...] on filedocumented in this encounter Care Teams Induction Coordination Engineer Relationship Specialty Start Date End Date Palak, Rugen M, MD [address] [place] [address] PCP - General Family Medicine 07/29/22 Malcolm Cid MD [address] [place] [address] PCP - [facility] 05/30/22Wednesday, BREE Marquez [address] [place] [address] Licensed Practical Nurse Family Medicine 06/04/23 Jayne Del Valle, RN Licensed Practical Nurse Family Medicine 04/07/2404/30 Merry Paz LPN 05/19/24 documented as of this encounter
--- OUTSIDE RECORDS SUMMARY | 2024-07-29 20:20 | XMS_ITS | Encounter Summary ---
Author Organization [facility] Address [address] [place] [address] Care Team Providers Care Hand Meat Salter Name Role Phone Malcolm Cid MD Primary Care Provider [phone] Malcolm Cid MD Unavailable Wednesday, Alma AQUINON Unavailable [phone] Jayne Del Valle RN Unavailable [phone] Merry Paz ENGRAVINGS POLISHER Unavailable Unavailable Encounter Details Date Type Department Care Team (Late st Contact Info) Description 01/11/2023 Abstract [facility] [address] [facility] 110 [place] [address] Malcolm Cid MD 112 [facility] 110 [place], [place] [phone] Social History Tobacco Use Types Packs/Day Years [...] any clubs o r organizations such as sabianist groups, unions, fraternal [...] hard 09/14/2022 [facility] of Occupat ional Health - Occupational [...] in a assisted (including now)? No 09/14/2022 Sex and Gender [...] on filedocumented in this encounter Care Teams Hand Meat Salter Relationship Specialty Start Date End Date Malcolm Cid MD 112 [facility] 110 [place] [address] PCP - General Family Medicine 07/29/22 Malcolm Cid MD [address] [facility] 110 [place] [address] PCP - [facility] 05/30/22Wednesday, BREE Marquez 112 [facility] [address] [place] [address] Licensed Practical Nurse Family Medicine 06/04/23 Jayne Del Valle, DELMIS Licensed Practical Nurse Family Medicine 04/07/2404/30 Merry Paz LPN 05/19/24 documented as of this encounter
--- OUTSIDE RECORDS SUMMARY | 2024-07-29 20:20 | XMS_ITS | Encounter Summary ---
Author Organization [facility] Address [address] [place] [address] Care Team Providers Care Systems Software Designer Name Role Phone Malcolm Cid MD Primary Care Provider [phone] Malcolm Cid MD Unavailable Wednesday, Alma AQUINON Unavailable [phone] Jayne Del Valle RN Unavailable [phone] Merry Paz EXECUTIVE COMPENSATION ANALYST Unavailable Unavailable Encounter Details Date Type Department Care Team (Late st Contact Info) Description 02/15/2023 Orders Only [facility] [address] [place] [address] A, Unknown Practice [address] [place] [address] Social History Tobacco Use Types Packs/Day Years [...] any clubs o r organizations such as mormonism groups, unions, fraternal or athletic groups, or [...] care, and heating? Not very hard 09/14/2022 [facility] of Occupat ional Health - Occupational [...] Priority Date/Time Associated Diagnosis Comments XR KNEE 4+ VIEWS RIGHT Routine 02/14/2023 10:24 AM EST documented in this encounter Results * XR knee 4+ views right (02/14/2023 10:24 AM EST) Anatomical Region Laterality Modality Lower Extremities, Knee Right [facility] Unknown Practice A IMG XR PROCEDURES Final Resul t documented in this encounter Visit Diagnoses Not on filedocumented in this encounter Care Teams Systems Software Designer Relationship Specialty Start Date End Date Malcolm Cid MD 112 [facility] 110 [place] [address] PCP - General Family Medicine 07/29/22 Malcolm Cid MD [address] [place] [address] PCP - [facility] 05/30/22Wednesday, BREE Marquez [address] [place] [address] Licensed Practical Nurse Family Medicine 06/04/23 Jayne Del Valle, DELMIS Licensed Practical Nurse Family Medicine 04/07/2404/30 Merry Paz LPN 05/19/24 documented as of this encounter
--- OUTSIDE RECORDS SUMMARY | 2024-07-29 20:20 | XMS_ITS | Encounter Summary ---
Author Organization [facility] Address [address] [place] [address] Care Team Providers Care Broodmare Barn Groom Name Role Phone Malcolm Cid MD Primary Care Provider [phone] Malcolm Cid MD Unavailable Wednesday, Alma AQUINON Unavailable [phone] Jayne Del Valle RN Unavailable [phone] Merry Paz POWERED BRIDGE SPECIALIST Unavailable Unavailable Encounter Details Date Type Department Care Team (Late st Contact Info) Description 01/11/2023 Abstract [facility] [address] [facility] 110 [place] [address] Malcolm Cid MD 112 [facility] 110 [place], [place] [address] Social History Tobacco Use Types Packs/Day Years [...] How often do you attend chur or nondenominational services? More than 4 times per year 09/14/2022 Do you belong to any clubs o r organizations such as anabaptism groups, unions, fraternal or athletic groups, or [...] care, and heating? Not very hard 09/14/2022 [facility] of Occupat ional Health - [...] on filedocumented in this encounter Care Teams Broodmare Barn Groom Relationship Specialty Start Date End Date Malcolm Cid MD [address] [facility] 110 [place] [address] PCP - General Family Medicine 07/29/22 Malcolm Cid MD [address] [facility] 110 [place] [address] PCP - [facility] 05/30/22Wednesday, BREE Marquez 112 [facility] [address] [place] [address] Licensed Practical Nurse Family Medicine 06/04/23 Jayne Del Valle, DELMIS Licensed Practical Nurse Family Medicine 04/07/2404/30 Merry Paz LPN 05/19/24 documented as of this encounter
--- OUTSIDE RECORDS SUMMARY | 2024-07-29 20:20 | XMS_ITS | Encounter Summary ---
Author Organization [facility] Address [address] [place] [address] Care Team Providers Care Open End Spinning Operator Name Role Phone Malcolm Cid MD Primary Care Provider [phone] Malcolm Cid MD Unavailable Wednesday, Alma AQUINON Unavailable [phone] Jayne Del Valle RN Unavailable [phone] Merry Paz POLICE DETECTIVE Unavailable Unavailable Encounter Details Date Type Department Care Team (Late st Contact Info) Description 01/20/2023 Abstract [facility] [address] [facility] 110 [place] [phone] Malcolm Cid MD 112 [facility] 110 [place], [place] [address] Social History Tobacco Use Types Packs/Day Years [...] How often do you attend chur or episcopalian services? More than 4 times per year 09/14/2022 Do you belong to any clubs o r organizations such as sikhism groups, unions, fraternal or athletic groups, or [...] care, and heating? Not very hard 09/14/2022 [facility] of Occupat ional Health - [...] place to sleep or slept in a nursing home (including now)? No 09/14/2022 Sex and [...] on filedocumented in this encounter Care Teams Open End Spinning Operator Relationship Specialty Start Date End Date Malcolm Cid MD [address] [facility] 110 [place] [address] PCP - General Family Medicine 07/29/22 Malcolm Cid MD [address] [facility] 110 [place] [address] PCP - [facility] 05/30/22Wednesday, BREE Marquez 112 [facility] [address] [place] [address] Licensed Practical Nurse Family Medicine 06/04/23 Jayne Del Valle, DELMIS Licensed Practical Nurse Family Medicine 04/07/2404/30 Merry Paz LPN 05/19/24 documented as of this encounter
--- OUTSIDE RECORDS SUMMARY | 2024-07-29 20:21 | XMS_ITS | Encounter Summary ---
Author Organization [facility] Address [address] [place] [address] Care Team Providers Care Reel Blade Bender Furnace Tender Name Role Phone Malcolm Cid MD Primary Care Provider [phone] Malcolm Cid MD Unavailable Merry Paz LPN Unavailable Unavailable Reason for Visit * Reason Onset Date Comments Med Refill 06/26/2024 Encounter Details Date Type Department Care Team (Late st Contact Info) Description 06/26/2024 Refill [facility] [address] [facility] [address] [place] [id number] Marina Proctor, PA [address] [place] [facility] [address] [place], [place] [id number] 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 [...] any clubs o r organizations such as confucianist groups, unions, fraternal or athletic groups, or [...] Recorded Patient Health Questionnaire-2 Score 0 05/18/2024 [facility] [place] of Occupat ional Health - Occupational Stress [...] a group home (including now)? No 09/14/2022 Housing Stability Vital Sign Answer Sohail e Recorded In the last 12 months, was t here a time when you were not able to pay the mortgage or rent on time? Yes 10/10/2023 In the past 12 months, how m any times have you moved where you were living? 0 10/10/2023 At any time in the past 12 m [facility], were you homeless or living in a group home (including now)? No 10/10/2023 Sex and Gender Information Value Date Recorded Sex Assigned at Male 09/08/2022 2:56 PM EDT Legal Sex Male 6:55 PM EDT Gender Identity Male 09/08/2022 2:56 PM EDT Sexual Orientation Straight 09/08/2022 2: 56 PM EDT documented as of this encounter Miscellaneous Notes * Telephone Encounter - ISIS Vera - 06/27/2024 8:01 AM EDT Please let pt know that the Hydrocodone really needs to be used only for flare ups of severe pain. He has been taking it very consistently. Please encourage him to start spacing out how many he is using a day, I would like him to gradually stop the Hydrocodone and resume using the Tramadol as needed. I sent in a prescription with a reduced frequency and will continue to back it down for him. If he is having constant pain, I would recommend he see a Fiber Optics Technician to discuss treatment options for the Rheumatoid and Gout. Also I see he requested a steroid, however, he was just in the ER and was placed on a Medrol Dospak. May even still have a day or two of dosing. * Telephone Encounter - KAT CHAUDHARI - 06/26/2024 9:33 AM EDT Last OV 05-18-24 documented in this encounter Plan of Treatment Not on file documented as of this encounter Visit Diagnoses Diagnosis 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 rheumatoid factor ([facility]) documented in this encounter Care Teams Reel Blade Bender Furnace Tender Relationship Specialty Start Date End Date Malcolm Cid MD 112 [facility] [address] [place] [address] PCP - General Family Medicine 07/29/22 Malcolm Cid MD 112 [facility] [address] [place] [address] PCP - [facility] 05/30/22 Merry Paz LPN 05/19/24 documented as of this encounter
--- OUTSIDE RECORDS SUMMARY | 2024-07-29 20:21 | XMS_ITS | Encounter Summary ---
Author Organization [facility] Address [address] [place] [address] Care Team Providers Care Equipment Installation Professional Name Role Phone Malcolm Cid MD Primary Care Provider [phone] Malcolm Cid MD Unavailable Merry Paz LPN Unavailable Unavailable Encounter Details Date Type Department Care Team (Late st Contact Info) Description 06/26/2024 Abstract [facility] [address] [place] [address] Merry Paz LPN Social History Tobacco Use Types Packs/Day Years [...] How often do you attend chur or synagogue services? More than 4 times per year 10/10/2023 Do you belong to any clubs o r organizations such as muslim groups, unions, fraternal or athletic groups, or [...] Recorded Patient Health Questionnaire-2 Score 0 05/18/2024 [facility] [place] of Occupat ional Health - Occupational Stress [...] place to sleep or slept in a care home (including now)? No 09/14/2022 Housing Stability [...] any time in the past 12 m [facility], were you homeless or living in a care home (including now)? No 10/10/2023 Sex and [...] on filedocumented in this encounter Care Teams Equipment Installation Professional Relationship Specialty Start Date End Date Malcolm Cid MD 112 [facility] [address] [place] [address] PCP - General Family Medicine 07/29/22 Malcolm Cid MD 112 [facility] [address] [place] [address] PCP - [facility] 05/30/22 Merry Paz LPN 05/19/24 documented as of this encounter
--- OUTSIDE RECORDS SUMMARY | 2024-07-29 20:21 | XMS_ITS | Encounter Summary ---
Author Organization [facility] Address [address] [place] [place] [address] Care Team Providers Care Chancellor Name Role Phone Malcolm Cid MD Primary Care Provider [phone] Malcolm Cid MD Unavailable Jayne Del Valle RN Unavailable [phone] Merry Paz LPN Unavailable Unavailable Encounter Details Date Type Department Care Team (Late st Contact Info) Description 05/18/2024 Abstract [facility] 112 [facility] [address] [place] [id number] Malcolm Cid MD 112 [facility] [address] [place] [address] Social History Tobacco Use Types Packs/Day Years [...] Health Questionnaire-2 Score 0 05/18/2024 [facility] of Occupat ional Health - Occupational Stress [...] any time in the past 12 m [facility], were you homeless or living in a senior care (including now)? No 10/10/2023 Sex and Gender Information Value Date Recorded Sex Assigned at Male 09/08/2022 2:56 PM EDT Legal Sex Male 6:55 PM EDT Gender Identity Male 09/08/2022 2:56 PM EDT Sexual Orientation Straight 09/08/2022 2: 56 PM EDT documented as of this encounter Functional Status * Over the past 2 weeks, how often have you been bothered by any of the following problems? Question Answer Date of Assessment Author Little interest or pleasure in doing things Not at all 05/18/2024 8:53 AM EDT Cristal Ojeda LP N Feeling down, depressed, or hopeless Not at all 05/18/2024 8:53 AM EDT Cristal Ojeda LP N Patient Health Questionnaire -2 Score 0 05/18/2024 8:53 AM EDT Cristal Ojeda LP N documented as of this encounter Plan of Treatment Not on file documented as of this encounter Visit Diagnoses Not on filedocumented in this encounter Care Teams Chancellor Relationship Specialty Start Date End Date Malcolm Cid MD [address] [facility] [address] [place] [address] PCP - General Family Medicine 07/29/22 Malcolm Cid MD [address] [facility] [address] [place] [address] PCP - [facility] 05/30/22 Jayne Del Valle, DELMIS Licensed Practical Nurse Family Medicine 04/07/2404/30 Merry Paz LPN 05/19/24 documented as of this encounter
--- OUTSIDE RECORDS SUMMARY | 2024-07-29 20:21 | XMS_ITS | Encounter Summary ---
Author Organization [facility] Address [address] [place] [address] Care Team Providers Care Mattress Finisher Name Role Phone Malcolm Cid MD Primary Care Provider [phone] Malcolm Cid MD Unavailable Jayne Del Valle RN Unavailable [phone] Merry Paz LPN Unavailable Unavailable Encounter Details Date Type Department Care Team (Late st Contact Info) Description 05/18/2024 Abstract [facility] 112 [facility] [address] [place] [id number] Malcolm Cid MD 112 [facility] [address] [place] [address] Social History Tobacco Use Types [...] Recorded Patient Health Questionnaire-2 Score 0 05/18/2024 [facility] [place] of Occupat ional Health - Occupational Stress [...] any time in the past [address] [facility], were you homeless or living in a [...] on filedocumented in this encounter Care Teams Mattress Finisher Relationship Specialty Start Date End Date Malcolm Cid MD [address] [place] [facility] [address] [place] [address] PCP - General Family Medicine 07/29/22 Malcolm Cid MD [address] [facility] [address] [place] [address] PCP - [facility] 05/30/22 Jayne Del Valle, DELMIS Licensed Practical Nurse Family Medicine 04/07/2404/30 Merry Paz LPN 05/19/24 documented as of this encounter
--- OUTSIDE RECORDS SUMMARY | 2024-07-29 20:21 | XMS_ITS | Clinical Summary ---
Author Organization [facility] Address [address] [place] [address] Care Team Providers Care Professor Of Astronomy Name Role Phone Malcolm Cid MD Primary Care Provider [phone] Malcolm Cid MD Unavailable Merry Paz LPN Unavailable Unavailable Allergies No known active allergies Medications carvedilol (Coreg) 6.25 MG tabletIndication s:Essential (primary) hypertension (CMS/HCC) TAKE 1 TABLET BY MOUTH TWICE A DAY WITH FOOD 180 tablet 3 09/22/19 23 Active allopurinol (Zyloprim) 300 MG tablet Take 600 mg by mouth in the morning. 01/02/20 22 Active colchicine 0.6 MG tabletIndication s: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) Take 1 tablet (0.6 mg) by mouth every other day 100 tablet 1 04/26/19 24 Active allopurinol (Zyloprim) 100 MG tablet Take 200 mg by mouth Daily Take with Allopurinol 3oomg (2 tabs)=700mg total 03/08/19 24 Active amLODIPine (Norvasc) 10 MG tabletIndication s:Essential hypertension (CMS/HCC) TAKE 1 TABLET BY MOUTH EVERY DAY FOR 100 DAYS 100 tablet 3 07/05/19 24 Active cloNIDine (Catapres) 0.1 MG tabletIndication s:Essential hypertension (CMS/HCC) TAKE 1 TABLET BY MOUTH TWICE A DAY 180 tablet 3 08/09/19 24 Active gabapentin (Neurontin) 300 MG capsuleIndicatio ns:Other chronic pain Take 1 capsule (300 mg) by mouth in the morning and 1 capsule (300 mg) before bedtime. 100 capsule 3 06/06/19 25 Active methylPREDNISolo ne (Medrol Dospak) 4 MG tabletsIndicatio ns: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) Follow schedule on package instructions 21 tablet 07/21/19 25 Active traMADol (Ultram) 50 MG tabletIndication s: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) Take 1 tablet (50 mg) by mouth every 12 (twelve) hours if needed for moderate pain 60 tablet 07/27/19 25 025 Active HYDROcodone-acet aminophen (Newton) 5-325 MG tabletIndication s: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) Take 1 tablet by mouth every 8 (eight) hours if needed for severe pain for up to 5 days 15 tablet 06/28/19 25 025 Discontinu ed(Reorder ) methylPREDNISolo ne (Medrol Dospak) 4 MG tablets TAKE 6 TABLETS ON DAY 1 DIRECTED ON PACKAGE AND DECREASE BY 1 TAB EACH DAY FOR A TOTAL OF 6 DAYS 06/24/19 25 025 Discontinu ed(Reorder ) traMADol (Ultram) 50 MG tabletIndication s: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) Take 1 tablet (50 mg) by mouth every 12 (twelve) hours if needed for moderate pain 60 tablet 06/29/19 25 025 Discontinu ed(Reorder ) HYDROcodone-acet aminophen (Newton) 5-325 MG tabletIndication s: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) Take 1 tablet by mouth every 12 (twelve) hours if needed for severe pain for up to 5 days 10 tablet 07/04/19 25 025 Discontinu ed(Reorder ) HYDROcodone-acet aminophen (Newton) 5-325 MG tabletIndication s: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) Take 1 tablet by mouth Daily as needed for severe pain for up to 5 days 5 tablet 07/08/19 25 025 Active Problems Problem Noted Date Diagnosed Date Recurrent major depressive disorder, in full rem ission 05/18/2024 COVID-19 virus infection 10/11/2023 Assessment & Plan (10/11/2023 8:13 AM EDT): Watch for bacterial infections Continue Inhaler and Steroids Accidental overdose 06/10/2023 Assessment & Plan (06/10/2023 4:31 PM EDT): Doing better D/W patient abuse and overuse potential We will only do limited quantity. Goal is to get those out of system. He no longer takes Tramadol and Baclofen DDD (degenerative disc disease), cervical 2022 Vasovagal syncope 12/16/2022 Chondrocalcinosis of shoulder region 07/29/2022 Essential hypertension 07/29/2022 Assessment & Plan (10/11/2023 8:11 AM EDT): Our specific goals, for your hypertension, is to keep your blood pressure less than 140/90, and the importance of weight control. We made recommendations on how to control your blood pressure, and minimize your risk of these copmplications. We also discussed your current barriers to a healthy living and importance of healthy diet and exercise. Prior to your visit today we have reviewed your chart and formed a plan to assist with providing you the best possible care. We reviewed the possible complications of hypertension including, stroke, heart failure and kidney impairment. In addition, we discussed your medications, the importance of taking them as prescribed. DASH diet handouts Assessment & Plan (05/03/2023 10:35 AM EST): Our specific goals, for your hypertension, is to keep your blood pressure less than 140/90, and the importance of weight control. We made recommendations on how to control your blood pressure, and minimize your risk of these copmplications. We also discussed your current barriers to a healthy living and importance of healthy diet and exercise. Prior to your visit today we have reviewed your chart and formed a plan to assist with providing you the best possible care. We reviewed the possible complications of hypertension including, stroke, heart failure and kidney impairment. In addition, we discussed your medications, the importance of taking them as prescribed. 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 Patient will continue to be required to be seen in our office at least every three months for monitoring. At each follow up visit I will reassess the patient's need for the medication. Patient is to have this medication prescribed only through this office. Failure to follow the rules and regulations will result in tapering and discontinuation of medications if applicable. Patient verbalized understanding. OARRS Report was reviewed for this patient. Rheumatoid arthritis involvi ng multiple sites with positive rheumatoid factor 05/10/2017 Chronic pain 04/26/2017 Assessment & Plan (05/03/2023 10:35 AM EST): Our specific goals, for your hypertension, is to keep your blood pressure less than 140/90, and the importance of weight control. We made recommendations on how to control your blood pressure, and minimize your risk of these copmplications. We also discussed your current barriers to a healthy living and importance of healthy diet and exercise. Prior to your visit today we have reviewed your chart and formed a plan to assist with providing you the best possible care. We reviewed the possible complications of hypertension including, stroke, heart failure and kidney impairment. In addition, we discussed your medications, the importance of taking them as prescribed. DASH diet handouts Medication choice and dosage is appropriate for patient's current medical conditions. Patient will continue to be required to be seen in our office at least every three months for monitoring. At each follow up visit I will reassess the patient's need for the medication. Patient is to have this medication prescribed only through this office. Failure to follow the rules and regulations will result in tapering and discontinuation of medications if applicable. Patient verbalized understanding. OARRS Report was reviewed for this patient. Nicotine use disorder 04/26/2017 Polyarthritis 2015 Anemia 2015 Hyponatremia 2015 Resolved Problems Problem Noted Date Diagnosed Date Resolved Date Acute pansinusitis 01/11/2024 Major depressive disorder, r ecurrent, moderate 01/11/2024 05/18/2024 Adjustment disorder with depressed mood 07/29/2022 05/18/2024 Assessment & Plan (05/18/2023 2:33 PM EDT): Did go to ER Increased Seroquel. But increase had sedation Patient had some paranoia when taking gummies Anxiety 07/29/2022 05/18/2024 Assessment & Plan (10/11/2023 8:23 AM EDT): Patient's Medicine is effective at controlling symptoms at current dose and frequency. PDMP reviewed with no evidence of overuse and abuse D/W patient to avoid use of benzodiazepines when consuming alcohol Advised against operating heavy machinery and driving long distances while on medicines. D/W patient with history of suicidal ideations in the past and he assures me he has no depression and no thoughts of hurting himself Assessment & Plan (06/10/2023 4:21 PM EDT): Patient's Medicine is effective at controlling symptoms at current dose and frequency. PDMP reviewed with no evidence of overuse and abuse D/W patient to avoid use of benzodiazepines when consuming alcohol Advised against operating heavy machinery and driving long distances while on medicines. Insomnia 07/29/2022 05/18/2024 Rheumatoid arthritis 07/29/2022 023 Encounters Date Type Department Care Team Description 07/26/2024 Refill [facility] [address] [place] [address] Nikky Jacobson 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) 07/26/2024 Refill [facility] [address] [place] [address] Marina Proctor PA 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) 07/20/2024 Refill [facility] [address] [place] [address] Marina Proctor PA 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) 07/11/2024 Refill [facility] [address] [place] [address] Marina Proctor PA 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) 07/07/2024 Refill [facility] [address] [place] [address] Marina Proctor PA 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) 07/03/2024 Refill [facility] [address] [place] [address] Marina Proctor PA 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 rheumatoid factor ([facility]/HCC) 06/28/2024 [facility] [address] [place] [phone] Merry Paz LPN 06/28/2024 Refill [facility] [address] [place] [address] Malcolm Cid MD 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 rheumatoid factor ([facility]) 06/27/2024 Telephone [facility] [address] [place] [phone] Merry Paz LPN 06/27/2024 [facility] [address] [place] [phone] Merry Paz LPN 06/26/2024 Abstract [facility] [address] [place] [phone] Merry Paz, [facility] 06/26/2024 Refill [facility] [address] [place] [address] Marina Proctor PA 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) 06/26/2024 Telephone [facility] [address] [place] [address] Malcolm Cid MD Med Refill 06/26/2024 Refill [facility] [address] [place] [address] Marina Proctor PA 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) 06/20/2024 Patient Outreach [facility] [address] [place] [phone] Merry Paz, [employer] 06/19/2024 Refill [facility] [address] [place] [address] Marina Proctor PA 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) 06/12/2024 Refill [facility] [address] [place] [address] Marina Proctor PA 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) 06/05/2024 Refill [facility] [address] [place] [address] Marina Proctor PA 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) 06/05/2024 Refill [facility] [address] [place] [address] Malcolm Cid MD Other chronic pain 05/30/2024 Refill [facility] [address] [place] [address] Malcolm Cid MD 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) 05/29/2024 Refill [facility] [address] [place] [address] Marina Proctor PA 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) 05/23/2024 Refill [facility] [address] [facility] [address] [place] [address] Marina Proctor PA 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) 05/18/2024 9:00 AM EDT Office Visit [facility] [address] [facility] [address] [place] [address] Marina Proctor PA 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); 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); Anemia, unspecified type; Toe joint pain, left 05/18/2024 Abstract [facility] [address] [facility] [address] [place] [address] Malcolm Cid MD 05/18/2024 Abstract [facility] [address] [facility] [address] [place] [address] Malcolm Cid MD 05/18/2024 Clinisync Result Encounter [facility] Unsolicited Marina Proctor PA 05/18/2024 Bamboo flowsheet [facility] [address] [facility] [address] [place] [address] Marina Proctor PA 05/18/2024 Travel 05/16/2024 Refill [facility] [address] [facility] [address] [place] [address] Marina Proctor PA Abscess of right index finger 05/16/2024 Refill [facility] [address] [place] [address] Malcolm Cid MD 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 rheumatoid factor ([facility]/HCC) 05/10/2024 Refill [facility] [address] [facility] [address] [place] [address] Marina Proctor PA Abscess of right index finger 05/02/2024 Refill [facility] [address] [facility] [address] [place] [address] Malcolm Cid MD 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 rheumatoid factor ([facility]) from Last 3 Months Immunizations Immunization Administration Dates Next Due DTP 07/26/1991,02/03/1991,1990 DTaP, Unspecified 10/20/1993 HiB, unspecified 10/20/1993,07/26/1991, 1,1990 MMR 10/13/2002,07/26/1991 OPV 10/20/1993,02/03/1991,1990 Family History Medical History Relation Name Comments Depression Brother 1 Remy Hypertension Brother 2 Shade Diabetes Father Juan José Cancer Maternal Grandfather Grandparents Hypertension Maternal Grandfather Grandparents Cancer Maternal Grandmother Grandparents COPD Mother Mom Hypertension Mother Mom Rheumatic fever Mother Mom Alcohol abuse Mother's Brother Parents Gout Other Hypertension Paternal Grandfather Father Cancer Paternal Grandmother Grandparents Hypertension Paternal Grandmother Grandparents Lupus Sister 1 Fibromyalgia Sister 2 Lupus Sister 2 46 y/o when pas sed away Arthritis Sister 3 Elinor Relation Name Status Comments Brother 1 Remy Brother 2 Shade Father Juan José Alive Maternal Grandfather Grandparents Maternal Grandmother Grandparents Mother Mom Alive Mother's Brother Parents Other Uncles Paternal Grandfather Father Paternal Grandmother Grandparents Sister 1 Alive Sister 2 Sister 3 Elinor Social History Tobacco Use Types Packs/Day Years Used Date Smoking Tobacco: Every Day Cigarettes 1.5 16.4 Started: 02/26/2008 Smokeless Tobacco: Current Chew Tobacco Cessation:Ready to Q uit: Not Asked; Counseling Given: Yes Alcohol Use Standard Drinks/Week Comments Yes 6 [...] 10/10/2023 How often do you attend chur ch or taoist services? More than 4 times per year 10/10/2023 Do you belong to any clubs o r organizations such as pentecostal groups, unions, fraternal or athletic groups, or [...] Recorded Patient Health Questionnaire-2 Score 0 05/18/2024 [facility] - Occupational Stress [...] in a retirement (including now)? No 09/14/2022 Housing Stability Vital Sign Answer Sohail e Recorded In the last 12 months, was t here a time when you were not able to pay the mortgage or rent on time? Yes 10/10/2023 In the past 12 months, how m any times have you moved where you were living? 0 10/10/2023 At any time in the past 12 m [facility], were you homeless or living in a retirement (including now)? No 10/10/2023 Sex and Gender Information Value Date Recorded Sex Assigned at Male 09/08/2022 2:56 PM EDT Legal Sex Male 6:55 PM EDT Gender Identity Male 09/08/2022 2:56 PM EDT Sexual Orientation Straight 09/08/2022 2: 56 PM EDT Last Filed Vital Signs Vital Sign Reading Time Taken Comments Blood Pressure 118/84 05/18/2024 9:00 AM EDT Pulse 75 05/18/2024 9:00 AM EDT Temperature - - Respiratory Rate 16 05/18/2024 9:00 AM EDT Oxygen Saturation 97% 05/18/2024 9:00 AM EDT Inhaled Oxygen Concentration - - Weight 101 kg (222 lb 9.6 oz) 05/18/2024 9:00 AM EDT Height 188 cm (6' 2 ) 05/18/2024 9:00 AM EDT Body Mass Index 28.58 05/18/2024 9:00 AM EDT Plan of Treatment Health Maintenance Due Date Last Done Comments Influenza Vaccine (Season Ended) 2024 Procedures Procedure Name Priority Date/Time Associated Diagnosis Comments ALL SED RATE Routine 05/18/2024 9:47 AM EDT ALL C REACTIVE PROTEIN Routine 05/18/2024 9:47 AM EDT ALL URIC ACID Routine 05/18/2024 9:47 AM EDT ALL CBC WITH AUTO DIFF Routine 05/18/2024 9:47 AM EDT from Last 3 Months Results * (ABNORMAL) ALL URIC ACID (05/18/2024 9:47 AM EDT) Pathologist [facility] URIC ACID 9.2(H) 3.5 - 7.2 mg/dL TB 05/18/2024 9:47 AM EDT 05/18/2024 9:50 AM EDT Narrative [facility] - 05/18/2024 10:51 AM EDT us Marina MARINELLI [facility] Final Result [facility] * (ABNORMAL) ALL SED RATE (05/18/2024 9:47 AM EDT) Pathologist Health system SED RATE 31(H) <=15 mm/hr TB 05/18/2024 9:47 AM EDT 05/18/2024 9:50 AM EDT Narrative CL[facility]NC - 05/18/2024 11:06 AM EDT us Marina MARINELLI [facility] Final Result [facility] * (ABNORMAL) ALL CBC WITH AUTO DIFF (05/18/2024 9:47 AM EDT) TB WBC 8.4 4.0 - 11.0 10 3/uL [facility] TBH RBC 4.62(L) 4.70 - 6.10 10 6/uL TBH TBH HGB 13.6(L) 14.0 - 18.0 g/dL TBH TBH HCT 40.4(L) 42.0 - 54.0 % TBH TBH MCV 87.4 80.0 - 94.0 fL TBH TBH MCH 29.4 25.9 - 34.0 pg TBH TBH MCHC 33.7 29.9 - 35.2 g/dL TBH TBH RDW 13.0 11.0 - 15.0 % TBH TBH PLT 329 150 - 450 10 3/uL TBH TBH MPV 10.5 9.5 - 13.5 fL TBH NEUTROPHILS PERCENT AUTO 52.4 43.0 - 75.0 % TBH LYMPHOCYTES PERCENT AUTO 37.1 20.5 - 60.0 % TBH MONOCYTES PERCENT AUTO 9.6 1.7 - 12.0 % TBH TBH EO % 0.5(L) 0.9 - 7.0 % TBH BASOPHILS PERCENT AUTO 0.2 0.2 - 2.0 % TBH IMMATURE GRANULOCYTES PCT AUTO 0.2 0.0 - 0.5 % TBH NEUTROPHILS ABSOLUTE AUTO 4.4 1.4 - 6.5 10 3/uL TBH LYMPHOCYTES ABSOLUTE AUTO 3.1 1.2 - 3.8 10 3/uL TBH MONOCYTES ABSOLUTE AUTO 0.8 0.3 - 0.8 10 3/uL TBH TBH EO # 0.0 0.0 - 0.7 10 3/uL TBH BASOPHILS ABSOLUTE AUTO 0.0 0.0 - 0.1 10 3/uL TBH IMMATURE GRANULOCYTES ABS AUTO 0.02 0.00 - 0.03 10 3/uL [facility] 05/18/2024 9:47 AM EDT 05/18/2024 9:50 AM EDT Narrative [facility] - 05/18/2024 10:12 AM EDT us Marina MARINELLI CLIN[facility] Final Result [facility] * ALL C REACTIVE PROTEIN (05/18/2024 9:47 AM EDT) C REACTIVE PROTEIN <0.50 <=0.50 mg/dL TBH 05/18/2024 9:47 AM EDT 05/18/2024 9:50 AM EDT Narrative [facility] - 05/18/2024 10:51 AM EDT us Marina MARINELLI [facility] Final Result [facility] from Last 3 Months Insurance [employer] Care Teams Professor Of Astronomy Relationship Specialty Start Date End Date Malcolm Cid MD [address] [facility] [address] [place] [address] PCP - General Family Medicine 07/29/22 Malcolm Cid MD [address] [facility] [address] [place] [address] [facility] 05/30/22 Merry Paz LPN 05/19/24
--- NOTE | 2024-07-29 21:01 | ED.GENADUL1 ---
HPI HPI - General Adult General Chief complaint: Extremity Problem, Nontraumatic Stated complaint: other Time Seen by Provider: 07/29/24 20:16 Source: patient Mode of arrival: ambulance Limitations: no limitations History of Present Illness HPI narrative: cc - pain and swelling in elbow and knee joints Pt with Rheumatoid arthritis and with tophus gout presents with pain and swelling in both elbows and both knees that began a few days ago but acutely worsened today. He says that he is having a lot of difficulty standing and walking due to the pain. He takes allopurinol daily and colchicine every other day for his gout. he denied any recent fall or injury. No systemic symptoms such as fever or chills or vomiting. 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 Related Data Home Medications ?Medication ?Instructions ?Recorded ?Confirmed amlodipine 10 mg tablet 10 mg PO QDAY 08/31/22 07/29/24 clonidine HCl 0.1 mg tablet 0.1 mg PO BID 08/31/22 07/29/24 colchicine 0.6 mg tablet 0.6 mg PO .every other 08/31/22 07/29/24 gabapentin 300 mg capsule 300 mg PO TID 02/15/23 07/29/24 (Neurontin) allopurinol 300 mg tablet 800 mg PO .evening 06/03/23 07/29/24 Allergies Allergy/AdvReac Type Severity Reaction Status Date / Time No Known Drug Allergies Allergy Verified 07/29/24 20:16 Opioid HPI Opioid Management Most Recent Opioid Data: Last Pain Scale 10 Today, 21:24 Last ED Pain Assessment Today, 20:28 Last MAR Pain Assessment Today, 21:20 Last ORT Total Score 10 06/03/23, 01:22 Last ORT Risk Category High Risk 06/03/23, 01:22 Ur Phencyclidine Scrn, (NEGATIVE) Negative 06/02/23, 22:15 PFSH PFSH Medical History Acute hypernatremia ?E87.0 - Hyperosmolality and hypernatremia (ICD-10) Altered mental status ?R41.82 - Altered mental status, unspecified (ICD-10) Sepsis ?A41.9 - Sepsis, unspecified organism (ICD-10) Acute kidney injury ?N17.9 - Acute kidney failure, unspecified (ICD-10) MONO (generalized anxiety disorder) ?F41.1 - Generalized anxiety disorder (ICD-10) Rheumatoid arthritis ?M06.9 - Rheumatoid arthritis, unspecified (ICD-10) Benign essential hypertension ?I10 - Essential (primary) hypertension (ICD-10) Gouty arthritis ?M10.9 - Gout, unspecified (ICD-10) Acute postoperative pain of knee ?G89.18 - Other acute postprocedural pain (ICD-10) ?M25.569 - Pain in unspecified knee (ICD-10) Visit for wound check ?Z51.89 - Encounter for other specified aftercare (ICD-10) Septic prepatellar bursitis of right knee ?M71.161 - Other infective bursitis, right knee (ICD-10) Acute viral syndrome ?B34.9 - Viral infection, unspecified (ICD-10) Diarrhea ?R19.7 - Diarrhea, unspecified (ICD-10) Rheumatoid arthritis flare ?M06.9 - Rheumatoid arthritis, unspecified (ICD-10) Polyarthralgia ?M25.50 - Pain in unspecified joint (ICD-10) Rheumatoid arthritis flare ?M06.9 - Rheumatoid arthritis, unspecified (ICD-10) Weakness ?R53.1 - Weakness (ICD-10) Mild shortness of breath ?R06.02 - Shortness of breath (ICD-10) Headache ?R51.9 - Headache, unspecified (ICD-10) Polyarthralgia ?M25.50 - Pain in unspecified joint (ICD-10) Flare of rheumatoid arthritis ?M06.9 - Rheumatoid arthritis, unspecified (ICD-10) Arthralgia ?M25.50 - Pain in unspecified joint (ICD-10) Drug-seeking behavior ?Z76.5 - Malingerer [conscious simulation] (ICD-10) Surgical History Total knee replacement status ?Z96.659 - Presence of unspecified artificial knee joint (ICD-10) H/O shoulder surgery ?Z98.890 - Other specified postprocedural states (ICD-10) Social History (Updated 04/20/23 @ 23:15 by April Sierra RN) Smoking status: Never smoker Nicotine containing products detail: chew tobacco Highest level of school completed/degree received: decline to answer Little interest or pleasure in doing things: not at all Feeling down, depressed, or hopeless: not at all Exam Narrative Exam Narrative: Nurses notes and vital signs reviewed and patient is not hypoxic. afebrile General: Well-appearing and in no apparent distress. Skin: Warm, dry, no pallor noted. No rash. Head: Normocephalic, atraumatic. Eye: Pupils are equal, round and EOMI. No scleral icterus. Ears, Nose, Mouth, and Throat: Oral mucosa is moist Cardiovascular: tachycardia. Respiratory: No accessory muscle use or respiratory distress. Lungs are clear to auscultation, no wheezing, rales or rhonchi Back: No midline thoracic or lumbar vertebral tenderness. No CVA tenderness Musculoskeletal: Both elbows with prominent olecranon swelling and tenderness. No associated cellulitis. Both knees with several areas of fluid collection along the anterior portion of the knee, consistent with tophaceous gout. These are markedly tender to palpation and limit his range of motion. No calf or popliteal tenderness, no lower extremity edema/swelling GI: Abdomen is soft, non-distended. Normal bowel sounds. No tenderness to palpation. No rebound, guarding, or rigidity noted. Neurological: A&O x4. No cranial nerve dysfunction observed. No truncal ataxia. Moves all extremities. Sensation intact. Psychiatric: Cooperative and interactive. Normal mood and affect. Constitutional Vital Signs, click to edit/add: Last Vital Signs Temp 100.1 F 07/29/24 20:12 Pulse 102 H 07/29/24 20:12 Resp 20 07/29/24 20:12 BP 142/84 H 07/29/24 20:12 Course Vital Signs Vital signs: Vital Signs Temperature 100.1 F 07/29/24 20:12 Pulse Rate 102 H 07/29/24 20:12 Respiratory Rate 07/29/24 20:12 Blood Pressure 142/84 H 07/29/24 20:12 Temperature 100.1 F 07/29/24 20:12 Pulse Rate 102 H 07/29/24 20:12 Respiratory Rate 07/29/24 20:12 Blood Pressure 142/84 H 07/29/24 20:12 Medical Decision Making MDM Narrative Medical decision making narrative: Peripheral IV established blood drawn and sent for testing. I ordered the patient received some saline as well as IV Toradol, IV Solu-Medrol and IV Dilaudid for his pain. I also ordered him to receive some IV Zofran in case any of the meds make him nauseous. White blood cell count elevated at 14.1. ESR elevated at 72. CRP 34. Uric acid 10.4. BMP without any electrolyte or renal dysfunction, except minimally decreased sodium at 135. Pt had some improvement in his pain after ED treatment but he still was in too much pain to stand and ambulate. Pt will be admitted on obs basis to [facility] for pain control. I paged the hospitalist to discuss the case. I ordered the patient to receive oral colchicine before being admitted. I spoke with Silvia, the tele hospitalist about this patient's case and she agreed to admit to Dr John's service- [facility] bed. Medical Records Medical records reviewed: Yes I reviewed the patient's medical records Medical records narrative: I have seen this patient several times before. He has multiple visits for arthritic type changes. Last orthopedic procedure in this hospital was in 2022 in which she had removal of some gouty material Lab Data Lab results reviewed: Yes I reviewed the patient's lab results Labs: Lab Results 07/29/24 Range/Units 21:09 WBC 14.1 H (4.0-11.0) 10^3/uL RBC 4.79 (4.70-6.10) 10^6/uL Hgb 14.1 (14.0-18.0) g/dL Hct 41.8 L (42.0-54.0) % MCV 87.3 (80.0-94.0) fL MCH 29.4 (25.9-34.0) pg MCHC 33.7 (29.9-35.2) g/dL RDW 13.2 (11.0-15.0) % Plt Count 250 (150-450) 10^3/uL MPV 10.6 (9.5-13.5) fL Neut % (Auto) 85.0 H (43.0-75.0) % Lymph % (Auto) 5.1 L (20.5-60.0) % [place] % (Auto) 9.3 (1.7-12.0) % Eos % (Auto) 0.1 L (0.9-7.0) % Baso % (Auto) 0.1 L (0.2-2.0) % Neut # (Auto) 12.0 H (1.4-6.5) 10^3/uL Lymph # (Auto) 0.7 L (1.2-3.8) 10^3/uL [place] # (Auto) 1.3 H (0.3-0.8) 10^3/uL Eos # (Auto) 0.0 (0.0-0.7) 10^3/uL Baso # (Auto) 0.0 (0.0-0.1) 10^3/uL Abs Immat Gran (auto) 0.05 H (0.00-0.03) 10^3/uL Imm/Tot Granulo (auto) 0.4 (0.0-0.5) % ESR 72 H (<=15) mm/hr Sodium 135 L (136-145) mmol/L Potassium 3.6 (3.5-5.1) mmol/L Chloride 97 L (98-107) mmol/L Carbon Dioxide 26.6 (21.0-32.0) mmol/L Anion Gap 15.0 BUN 9.0 (7.0-18.0) mg/dL Creatinine 1.12 (0.70-1.30) mg/dL Est GFR ( Amer) >60 (>=60 mL/min/1.73m^2) Est GFR (Non-Af Amer) >60 (>=60 mL/min/1.73m^2) BUN/Creatinine Ratio 8.0 Glucose 112 H (74-106) mg/dL Lactate 0.9 (0.4-2.0) mmol/L Uric Acid 10.4 H (3.5-7.2) mg/dL Calcium 9.4 (8.5-10.1) mg/dL C-Reactive Protein 34.42 H (<=0.50) mg/dL Discharge Plan Discharge Chief Complaint: Extremity Problem, Nontraumatic Clinical Impression: Intractable pain, Rheumatoid arthritis flare, Gout, arthritis, Polyarthralgia Patient Disposition: Admitted as Observation Time of Disposition Decision: 22:06
[2024-07-29] MEDS: 0.9 % SODIUM CHLORIDE 1,000 ML 999 ML IV (21:16)
[2024-07-29 21:17] LABS: Basophils Percent Auto 0.1 % (0.2-2.0); Eosinophils Percent Auto 0.1 % (0.9-7.0); Hematocrit 41.8 % (42.0-54.0); Hemoglobin 14.1 g/dL (14.0-18.0); Immature Granulocytes Abs Auto 0.05 10^3/uL (0.00-0.03); Immature Granulocytes Pct Auto 0.4 % (0.0-0.5); Lymphocytes Absolute Auto 0.7 10^3/uL (1.2-3.8); Lymphocytes Percent Auto 5.1 % (20.5-60.0); Mean Corpuscular HGB Conc 33.7 g/dL (29.9-35.2); Mean Corpuscular Hemoglobin 29.4 pg (25.9-34.0); Mean Corpuscular Volume 87.3 fL (80.0-94.0); Mean Platelet Volume 10.6 fL (9.5-13.5); Monocytes Absolute Auto 1.3 10^3/uL (0.3-0.8); Monocytes Percent Auto 9.3 % (1.7-12.0); Platelet Count 250 10^3/uL (150-450); Red Blood Count 4.79 10^6/uL (4.70-6.10); Red Cell Distribution Width 13.2 % (11.0-15.0); White Blood Count 14.1 10^3/uL (4.0-11.0)
[2024-07-29] MEDS: ONDANSETRON PF 4 MG/2 ML VIAL IV (21:18)
[2024-07-29] MEDS: HYDROMORPHONE HCL 1 MG/ML CARTRIDGE IVP (21:20)
[2024-07-29] MEDS: METHYLPREDNISOLONE SOD SUCC PF 125 MG/2 ML VIAL IVP (21:21)
[2024-07-29 21:24] LABS: Erythrocyte Sedimentation Rate 72 mm/hr (<=15)
[2024-07-29] MEDS: KETOROLAC TROMETHAMINE 30 MG/ML VIAL IVP (21:24)
[2024-07-29 21:36] LABS: Calcium 9.4 mg/dL (8.5-10.1); Carbon Dioxide 26.6 mmol/L (21.0-32.0); Chloride 97 mmol/L (98-107); Estimated GFR (African America >60 (>=60 mL/min/1.73m^2); Estimated GFR (Non-African Ame >60 (>=60 mL/min/1.73m^2); Glucose 112 mg/dL (74-106); Potassium 3.6 mmol/L (3.5-5.1); Sodium 135 mmol/L (136-145); Uric Acid 10.4 mg/dL (3.5-7.2)
[2024-07-29 21:37] LABS: C Reactive Protein 34.42 mg/dL (<=0.50)
[2024-07-29 22:09] LABS: Lactate/Lactic Acid 0.9 mmol/L (0.4-2.0)
[2024-07-29 22:44] VITALS: BP 125/64; PULSE 96; TEMP 37.2; O2SAT 95
[2024-07-29] MEDS: COLCHICINE 0.6 MG TABLET PO (22:55)
--- OUTSIDE RECORDS SUMMARY | 2024-07-29 23:41 | XMS_ITS | CCD ---
Author Organization [facility] Care Team Providers Care Pulp Cooker Name Role Phone LEYDI ACEVES Primary Care Unavailable Leydi Aceves Primary Care Provider MD Leydi Aceves Primary Care Provider [phone] MD Juvenal Smith Emergency Provider [phone] MD Adam Young Admit Provider [phone] MD Hector Adam Attending Provider [phone] Leydi Aceves Primary Care Provider Leydi Aceves [...] DAWSON Attending Unavailable KELLY ACOSTA Consulting Unavailable KETNA, DR HOLLEY Primary Care Unavailable LIBERTAD Lay, [...] Unavailable HAY ., DR DUGGAN Admitting Unavailable Assaria MD [facility] Care Provider KAYCE COFFMAN Referring Unavailable [place] Primary Care Unavailable Ladi Huber Attending Unavailable Assaria MD [facility] Care Provider Ketan CABRAL [facility] Unavailable Ketan CABRAL [facility] Provider [phone] MD Ketan [facility] Primary Care Provider MD Nicola Leyva Attending Provider Nicola Leyva Attending Unavailab le [facility] Unavailable Adam Young Admitting Unavailable Nicola Leyva Attending Unavailab le [facility] Care Unavailable Nicola Leyva Admitting Unavailab le Wednesday BONDING AGENT, Alma Unavailable DELMY BOYLE Referring Unavailable KETAN, [facility] Care Unavailable DELMY BOYLE Referring Unavailable KETAN, [facility] Care Unavailable DELMY BOYLE Attending Unavailable KETAN, [facility] Care Unavailable DELMY BOYLE Referring Unavailable KETAN, [facility] Care Unavailable KETAN, [facility] Care Unavailable DELMY BOYLE Attending Unavailable DELMY BOYLE Referring Unavailable KETAN, [facility] Primary Care Unavailable DELMY BOYLE Attending Unavailable KETAN, [facility] Primary Care Unavailable Ivon BENITES, Jayne [...] daily as needed for pain HYDROcodone-aceta minophen ([place]) 5-325 MG tablet Indications: 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) Take 1 tablet by mouth Daily as needed for severe pain for up to 5 days 5 tablet 07/07/2024 07/12/2024 Active Start: 07-03-2024 End: 07-08-2024 take 1 tablet by mouth once HYDROcodone-acetaminophen ([place]) 5-325 MG tablet Indications: 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) Take 1 tablet by mouth every 12 (twelve) hours if needed for severe pain for up to 5 days 10 tablet 07/03/2024 07/07/2024 Discontinued (Reorder) Start: 06-27-2024 End: 07-03-2024 take 1 tablet by mouth every eight hours for pain HYDROcodone-acetaminophen ([place]) 5-325 MG tablet Indications: 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) Take 1 tablet by mouth every 8 (eight) hours if needed for severe pain for up to 5 days 15 tablet 06/27/2024 07/03/2024 Discontinued (Reorder) Start: 05-18-2024 End: 06-24-2024 take 1 tablet by mouth every six hours for pain HYDROcodone-acetaminophen ([place]) 5-325 MG tablet Indications: 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) Take 1 tablet by mouth every 6 (six) hours if needed for severe pain for up to 5 days 20 tablet 06/19/2024 06/24/2024 Active Start: 05-11-2024 End: 05-16-2024 take 1 tablet by mouth every six hours for pain HYDROcodone-acetaminophen ([place]) 5-325 MG tablet Indications: Abscess of right index finger Take 1 tablet by mouth every 6 (six) hours if needed for severe pain for up to 5 days 20 tablet 05/11/2024 05/16/2024 Active Start: 04-20-2024 End: 04-30-2024 take 1 tablet by mouth every six hours for pain HYDROcodone-acetaminophen ([place]) 5-325 MG tablet Indications: Abscess of right [...] 07, 2021 12:00am May 09, 2023 1:48am [id number] actuat albuterol 0.09 mg/actuat metered dose [...] involving multiple sites with positive rheumatoid factor ([facility]) Take 4 tablets (40 mg) [...] (2 sources) Patient encounter status; Translations: [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 Basophils/100 WBC (Bld) 0.2 % 0.2 - 2.0 % [facility] Eosinophils/100 WBC (Bld) 0.5 % Low 0.9 - 7.0 % [facility] Erythrocyte distribution width (RBC) [Ratio] 13 % 11.0 - 15.0 % [facility] Hematocrit (Bld) [Volume fraction] 40.4 % Low 42.0 - 54.0 % [facility] Hemoglobin (Bld) [Mass/Vol] 13.6 g/dL Low 14.0 - 18.0 g/dL [facility] IMMATURE GRANULOCYTES ABS AUTO 0.02 [facility] Immature granulocytes/100 WBC (Bld) 0.2 % 0.0 - 0.5 % [facility] Interpretation and review of laboratory results Abnormal [facility] LYMPHOCYTES ABSOLUTE AUTO 3.1 [facility] Lymphocytes/100 WBC (Bld) 37.1 % 20.5 - 60.0 % [facility] MCH (RBC) [Entitic mass] 29.4 pg 25.9 - 34.0 pg [facility] MCHC (RBC) [Mass/Vol] 33.7 g/dL 29.9 - 35.2 g/dL [facility] MCV (RBC) [Entitic vol] 87.4 fL 80.0 - 94.0 fL [facility] MONOCYTES ABSOLUTE AUTO 0.8 [facility] Monocytes/100 WBC (Bld) 9.6 % 1.7 - 12.0 % [facility] NEUTROPHILS ABSOLUTE AUTO 4.4 [facility] Neutrophils/100 WBC (Bld) 52.4 % 43.0 - 75.0 % [facility] Platelet mean volume (Bld) [Entitic vol] 10.5 fL 9.5 - 13.5 fL [facility] TBH EO # 0 [facility] TBH PLT 329 [facility] RBC 4.62 Low [facility] WBC 8.4 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 Polyarthritis with several nodules mainly [...] arthritic flares once every 4 months. Saw mobile home laborer Dr. Jaime in [place] who did diagnostic knee aspiration which according to patient was positive for uric acid crystals. Treated with steroids and continued allopurinol. He has not seen Dr. Jaime since 2014. In 2014, he was hospitalized in [place] for acute polyarthritis. Saw mobile home laborer while in hospital who told him that [...] shoulder surgery by Dr. Tc Coffey at [facility]. No post op complications. Was in [...] of gout 06/2023. He was seen in [facility] for gout flare. Given steroid [...] blood Nega (more content not included)... Normal [facility] Cyn 01-04-2024 LIANNAN Telephone (RHEUAV) -- NICK WRAY ([id number]) 1990 M Date Time Provider Department 01/04/24 DELMY BOYLE During your visit today, we recorded the following information about you: Camilla Holt BONDING AGENT 01/04/2024 1:23 PM Signed Nick Bonifaciojustin (Munoz: [id number]) [place] Rx #: [id number] Need Help? Call us at Outcome Denied [...] of therapy with generic Lidocaine patch. The [facility] Policy for Medical Necessity as posted on the [facility] website and [facility] Preferred Drug List criteria were reviewed and per [place] Administrative Code Rule 5160-1-01 (C) and (B), [...] through the community. Drug ZTlido 1.8% patches [facility] cloud logo Form [place] [facility] Done In :60 Seconds Electronic PA Form (2016 NCPDP) Original Claim [...] MD 01/06/2024 8:36 AM Signed Addended by: DEMLY BOYLE on: 01/06/2024 08:36 AM Modules accepted: [...] Status:Closed by CAMILLA HOLT on 01/04/24 Normal [facility] No Panel Informationon 01-03 Radiology Study observation (narrative) [facility] XR FOOT 3V AP/LAT/OBL BILon 01-04-2024 XR FOOT 3V AP/LAT/OBL RAMIRO * * *Final Report* * * DATE OF EXAM: Jan 04 2024 9:48AM VHX 1398 - XR FOOT 3V AP/LAT/OBL RAMIRO / [...] progressed from 05/04/2017 Mild right foot osteoarthritis. Biomedical Engineer: PSCB Transcribe Date/Time: Jan 04 2024 10:13A Dictated by : UMA ROGERS MD This examination was interpreted and the report reviewed and electronically signed by: CHELSEA REEVES MD on Jan 04 2024 3:12PM EST [id number] [facility] XR Foot - bilateral AP and [...] acute fracture or dislocation. Mild pes planus. [facility] Provider, [facility] - [...] progressed from 05/04/2017 Mild right foot osteoarthritis. Biomedical Engineer: ADELA Transcribe Date/Time: Jan 04 2024 10:13A Dictated by : MUA ROGERS MD This examination was interpreted and the report reviewed and electronically signed by: CHELSEA REEVES MD on Jan 04 2024 3:12PM EST [facility] XR KNEE 4V AP/PA/LAT/MERCH B [facility] 01-04-2024 XR KNEE 4V AP/PA/LAT/MERCH RAMIRO * [...] similar to 05/04/2017. Mild right knee osteoarthritis. 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 Mild right knee osteoarthritis. Biomedical Engineer: PSCB Transcribe Date/Time: Jan 04 2024 12:48P Dictated by : CHELSEA REEVES MD This examination was interpreted and the report reviewed and electronically signed by: CHELSEA REEVES MD on Jan 04 2024 1:21PM EST [facility] * * *Final Report* * * [...] similar to 05/04/2017. Mild right knee osteoarthritis. Biomedical Engineer: ADELA Transcribe Date/Time: Jan 04 2024 12:48P Dictated by : CHELSEA REEVES MD This examination was interpreted and the report reviewed and electronically signed by: CHELSEA REEVES MD on Jan 04 2024 1:21PM EST [facility] XR Knee - bilateral 4 ViewsO rdered By: Ccf Provider on 01-04-2024 [facility] ALT SerPl-cCncon 12-30-2023 ALT [Catalytic activity/Vol] 20 U/L Normal 10-54 [facility] Comment on above: Order Comment: Speci men Type: BLOOD SPECIMEN Ordering Facility: [facility] Address: [address] [place] [address] Performed By: #### C RET1 #### [facility] CLIA [id number] [address] [place] [address] AST SerPl-cCncon 12-30-2023 AST [Catalytic activity/Vol] 18 U/L Normal 14-40 [facility] Comment on above: Order Comment: Speci men Type: BLOOD SPECIMEN Ordering Facility: [facility] Address: [address] [place] [address] Performed By: #### C RET1 #### [facility] CLIA [id number] [address] [place] [address] 88790 Albumin SerPl-mCncon 024 Albumin [Mass/Vol] 4.1 g/dL Normal 3.9-4.9 [facility] Comment on above: Order Comment: Speci men Type: BLOOD SPECIMEN Ordering Facility: [facility] Address: [address] [place] [address] Performed By: #### C RET1 #### [facility] CLIA [id number] [address] [place] [address] 86751 CBC W Auto Differential pane l (Bld)on 12-30-2023 Basophils (Bld) [#/Vol] 0.03 10*3/uL Normal <0.11 [facility] Comment on above: Order Comment: Speci men Type: BLOOD SPECIMEN Ordering Facility: [facility] Address: [address] [place] [address] Performed By: #### 5 7021-8 #### [facility] CLIA [id number] [address] [place] [address] 37847 Basophils/100 WBC (Bld) 0.6 % Normal [facility] Comment on above: Order Comment: Speci men Type: BLOOD SPECIMEN Ordering Facility: [facility] Address: [facility] [place] [address] Performed By: #### 5 7021-8 #### [facility] CLIA [id number] [address] [place] [address] 95129 Differential cell count method Nom (Bld) Auto Normal [facility] Comment on above: Order Comment: Speci men Type: BLOOD SPECIMEN Ordering Facility: [facility] Address: [address] [place] [address] Performed By: #### 5 7021-8 #### [facility] CLIA [id number] [address] [place] [address]7070 Eosinophils (Bld) [#/Vol] 0.06 10*3/uL Normal <0.46 [facility] Comment on above: Order Comment: Speci men Type: BLOOD SPECIMEN Ordering Facility: [facility] Address: [address] [place] [address] Performed By: #### 5 7021-8 #### [facility] CLIA [id number] [address] [place] [address] 74546 Eosinophils/100 WBC (Bld) 1.3 % Normal [facility] Comment on above: Order Comment: Speci men Type: BLOOD SPECIMEN Ordering Facility: [facility] Address: [address] [place] [address] Performed By: #### 5 7021-8 #### [facility] CLIA [id number] [address] [place] [address] 21151 Erythrocyte distribution width (RBC) [Ratio] 13.2 % Normal 11.5-15.0 [facility] Comment on above: Order Comment: Speci men Type: BLOOD SPECIMEN Ordering Facility: [facility] Address: [address] [place] [address] Performed By: #### 5 7021-8 #### [facility] CLIA [id number] [address] [place] [address]86 Hematocrit (Bld) [Volume fraction] 40.9 % Normal 39.0-51.0 [facility] Comment on above: Order Comment: Speci men Type: BLOOD SPECIMEN Ordering Facility: [facility] Address: [address] [place] [address] Performed By: #### 5 7021-8 #### [facility] CLIA [id number] [address] [place] [address]86 Hemoglobin (Bld) [Mass/Vol] 14.3 g/dL Normal 13.0-17.0 [facility] Comment on above: Order Comment: Speci men Type: BLOOD SPECIMEN Ordering Facility: [facility] Address: [address] [place] [address] Performed By: #### 5 7021-8 #### [facility] CLIA [id number] [address] [place] [address] 74111 Immature granulocytes (Bld) [#/Vol] 10*3/uL Normal <0.10 [facility] Comment on above: Order Comment: Speci men Type: BLOOD SPECIMEN Ordering Facility: [facility] Address: [address] [place] [address] Performed By: #### 5 7021-8 #### [facility] CLIA [id number] [address] [place] [address] 47434 Immature granulocytes/100 WBC (Bld) 0.2 % Normal [facility] Comment on above: Order Comment: Speci men Type: BLOOD SPECIMEN Ordering Facility: [facility] Address: [address] [place] [address] Performed By: #### 5 7021-8 #### [facility] CLIA [id number] [address] [place] [address] 29776 Lymphocytes (Bld) [#/Vol] 1.71 10*3/uL Normal 1.00-4.00 [facility] Comment on above: Order Comment: Speci men Type: BLOOD SPECIMEN Ordering Facility: [facility] Address: [address] [place] [address] Performed By: #### 5 7021-8 #### [facility] CLIA [id number] [address] [place] [address] 61681 Lymphocytes/100 WBC (Bld) 36.6 % Normal [facility] Comment on above: Order Comment: Speci men Type: BLOOD SPECIMEN Ordering Facility: [facility] Address: [address] [place] [address] Performed By: #### 5 7021-8 #### [facility] CLIA [id number] [address] [place] [address] 39691 MCH (RBC) [Entitic mass] 29.9 pg Normal 26.0-34.0 [facility] Comment on above: Order Comment: Speci men Type: BLOOD SPECIMEN Ordering Facility: [facility] Address: [address] [place] [address] Performed By: #### 5 7021-8 #### [facility] CLIA [id number] [address] [place] [address] 15031 MCHC (RBC) [Mass/Vol] 35.0 g/dL Normal 30.5-36.0 [facility] Comment on above: Order Comment: Speci men Type: BLOOD SPECIMEN Ordering Facility: [facility] Address: [address] [place] [address] Performed By: #### 5 7021-8 #### [facility] CLIA [id number] [address] [place] [address] 67395 MCV (RBC) [Entitic vol] 85.4 fL Normal 80.0-100.0 [facility] Comment on above: Order Comment: Speci men Type: BLOOD SPECIMEN Ordering Facility: [facility] Address: [address] [place] [address] 270[address] Performed By: #### 5 7021-8 #### [facility] CLIA [id number] [address] [place] [address] Monocytes (Bld) [#/Vol] 0.28 10*3/uL Normal <0.87 [facility] Comment on above: Order Comment: Speci men Type: BLOOD SPECIMEN Ordering Facility: [facility] Address: [address] [place] [address] Performed By: #### 5 7021-8 #### [facility] CLIA [id number] [address] [place] [address] 95389 Monocytes/100 WBC (Bld) 6.0 % Normal [facility] Comment on above: Order Comment: Speci men Type: BLOOD SPECIMEN Ordering Facility: [facility] Address: [address] [place] [address] Performed By: #### 5 7021-8 #### [facility] CLIA [id number] [address] [place] [address] 24246 Neutrophils (Bld) [#/Vol] 2.58 10*3/uL Normal 1.45-7.50 [facility] Comment on above: Order Comment: Speci men Type: BLOOD SPECIMEN Ordering Facility: [facility] Address: [address] [place] [address] Performed By: #### 5 7021-8 #### [facility] CLIA [id number] [address] [place] [address] 04845 Neutrophils/100 WBC (Bld) 55.3 % Normal [facility] Comment on above: Order Comment: Speci men Type: BLOOD SPECIMEN Ordering Facility: [facility] Address: [address] [place] [address] Performed By: #### 5 7021-8 #### [facility] CLIA [id number] [address] [place] [address] 89604 Nucleated RBC (Bld) [#/Vol] 10*3/uL Normal <0.01 [facility] Comment on above: Order Comment: Speci men Type: BLOOD SPECIMEN Ordering Facility: [facility] Address: [address] [place] [address]02 Performed By: #### 5 7021-8 #### [facility] CLIA [id number] [address] [place] [address] Nucleated RBC/100 WBC (Bld) [Ratio] 0.0 /100 WBC Normal [facility] Comment on above: Order Comment: Speci men Type: BLOOD SPECIMEN Ordering Facility: [facility] Address: [address] [place] [address] Performed By: #### 5 7021-8 #### [facility] CLIA [id number] [address] [place] [address] 56456 Platelet mean volume (Bld) [Entitic vol] 10.4 fL Normal 9.0-12.7 [facility] Comment on above: Order Comment: Speci men Type: BLOOD SPECIMEN Ordering Facility: [facility] Address: [address] [place] [address] Performed By: #### 5 7021-8 #### [facility] CLIA [id number] [address] [place] [address] 85535 Platelets (Bld) [#/Vol] 277 10*3/uL Normal 150-400 [facility] Comment on above: Order Comment: Speci men Type: BLOOD SPECIMEN Ordering Facility: [facility] Address: [address] [place] [address]677 Performed By: #### 5 7021-8 #### [facility] CLIA [id number] [address] [place] [address] 27659 RBC (Bld) [#/Vol] 4.79 10*6/uL Normal 4.20-6.00 [facility] Comment on above: Order Comment: Speci men Type: BLOOD SPECIMEN Ordering Facility: [facility] Address: [address] [place] [address]16 Performed By: #### 5 7021-8 #### [facility] CLIA [id number] [address] [place] [address] 84978 WBC (Bld) [#/Vol] 4.67 10*3/uL Normal 3.70-11.00 [facility] Comment on above: Order Comment: Speci men Type: BLOOD SPECIMEN Ordering Facility: [facility] Address: [place] [id number] Performed By: #### 5 7021-8 #### [facility] CLIA [id number] [address] [place] [address]61 [facility] CBC W AUTO DIFF BLDon Basophils/100 WBC (Bld) 0.6 % [facility] BASOPHILS # BLD AUTO 0.03 [facility] [place] [facility] DIFFERENTIAL METHOD BLD Auto [facility] EOSINOPHIL # BLD AUTO 0.06 [facility] [place] [facility] LYMPHOCYTES # BLD AUTO 1.71 [facility] MONOCYTES # BLD AUTO 0.28 [facility] [place] [facility] NEUTROPHILS # BLD AUTO 2.58 [facility] NRBC # BLD AUTO <0.01 [facility] [place] [facility] NRBC/100 WBC BLD-RTO 0 /100 WBC [facility] PLATELET # BLD AUTO 277 [facility] PMV BLD AUTO 10.4 fL 9.0 - 12.7 fL [facility] WBC # BLD AUTO 4.67 [facility] Eosinophils/100 WBC (Bld) 1.3 % [facility] Erythrocyte distribution width (RBC) [Ratio] 13.2 % 11.5 - 15.0 % [facility] Hematocrit (Bld) [Volume fraction] 40.9 % 39.0 - 51.0 % [facility] Hemoglobin (Bld) [Mass/Vol] 14.3 g/dL 13.0 - 17.0 g/dL [facility] IMM GRANULOCYTES # BLD AUTO <0.03 [facility] [place] IMM GRANULOCYTES/LEUK NFR BLD AUTO 0.2 % [facility] Lymphocytes/100 WBC (Bld) 36.6 % [facility] MCH (RBC) [Entitic mass] 29.9 pg 26.0 - 34.0 pg [facility] MCHC (RBC) [Mass/Vol] 35 g/dL 30.5 - 36.0 g/dL [facility] MCV (RBC) [Entitic vol] 85.4 fL 80.0 - 100.0 fL [facility] Monocytes/100 WBC (Bld) 6 % [facility] Neutrophils/100 WBC (Bld) 55.3 % [facility] RBC (Bld) [#/Vol] 4.79 10*6/uL 4.20 - 6.0 0 m/uL [facility] Specimen Type: BLOOD SPECIMEN Ordering Facility: [facility] Address: [address] [place] [address] Original Ordering Provider: DELMY HDEZ [facility] CREATININE BLDon 12-30-2023 Creatinine [Mass/Vol] 1.32 mg/dL High 0.73-1.22 [facility] Comment on above: Order Comment: Speci men Type: BLOOD SPECIMEN Ordering Facility: [facility] Address: [facility] [place] [address] Performed By: #### C RET1 #### [facility] CLIA [id number] [address] [place] [address] Creatinine and Glomerular filtration rate.predicted panel (S/P/Bld) 73 mL/min/1.73m??? Normal >=60 [facility] Comment on above: Order Comment: Speci men Type: BLOOD SPECIMEN Ordering Facility: [facility] Address: [address] [place] [address] Result Comment: Jyoti mated Glomerular Filtration Rate [...] GFR. Performed By: #### C RET1 #### [facility] CLIA [id number] [address] [place] [address] CRP SerPl-mCncon 12-30-2023 CRP [Mass/Vol] mg/L Normal <0.9 [facility] Comment on above: Order Comment: Speci men Type: BLOOD SPECIMEN Ordering Facility: [facility] Address: [address] [place] [address] Performed By: #### C RET1, 1742-6, 1920-8, 1750-08 #### [facility] CLIA [id number] [address] [place] [address] ESR Westergren method (Bld) [Velocity]on 12-30-2023 ESR (Bld) [Velocity] 15 mm/h Normal 0-15 [facility] Comment on above: Order Comment: Speci men Type: BLOOD SPECIMEN Ordering Facility: [facility] Address: [address] [place] [address] Performed By: #### 4 537-7 #### [facility] CLIA [id number] [address] [facility] DESK [id number] [place] [address] [place] Urate SerPl-ncon Urate [Mass/Vol] 4.7 mg/dL Normal 4.0-8.1 [facility] Comment on above: Order Comment: Speci men Type: BLOOD SPECIMEN Ordering Facility: [facility] Address: [address] [place] [address] Performed By: #### C RET1, 1742-6, 8, 1750-08 #### [facility] CLIA [id number] [address] [place] [address] CNOVon 06-24-2023 CNOV Office Visit (ANA ) -- NCIK WRAY ([id number]) 1990 M Date Time Provider Department 06/24/23 [...] arthritic flares once every 4 months. Saw mobile home laborer Dr. Jaime in [place] who did diagnostic knee aspiration which according to patient was positive for uric acid crystals. Treated with steroids and continued allopurinol. He has not seen Dr. Jaime since 2014. In 2014, he was hospitalized in [place] for acute polyarthritis. Saw mobile home laborer while in hospital who told him that [...] shoulder surgery by Dr. Tc Coffey at [facility]. No post op complications. Was in [...] joints. Maribel (more content not included)... Normal [facility] CRP SerPl-mCncon 06-21-2023 CRP [Mass/Vol] mg/L Normal <0.9 [facility] Comment on above: Order Comment: Speci men Type: BLOOD SPECIMEN Ordering Facility: [facility] Address: [address] [place] [address] Performed By: #### C NEEMA1, 1741-07, 1919-09, 1750-08 #### [facility] CLIA [id number] [address] [place] [address] 19311 ESR Westergren method (Bld) [Velocity]on 06-21-2023 ESR (Bld) [Velocity] 2 mm/h Normal 0-15 [facility] Comment on above: Order Comment: Speci men Type: BLOOD SPECIMEN Ordering Facility: [facility] Address: [address] [place] [address] Performed By: #### C NEEMA1, 1741-07, 1919-09, 1750-08 #### [facility] CLIA [id number] [address] [place] [address] Urate SerPl-mCncon Urate [Mass/Vol] 5.1 mg/dL Normal 4.0-8.1 [facility] Comment on above: Order Comment: Speci men Type: BLOOD SPECIMEN Ordering Facility: [facility] Address: [address] [place] [address] Performed By: #### C NEEMA1, 1741-07, 1919-09, 1750-08 #### [facility] CLIA [id number] [address] [place] [address] 55063 Lipid Panelon 05-09-2023 Cholesterol [Mass/Vol] 155 mg/dL Normal 140-200 [facility] Comment on above: Result Comment: Chol less than 200 mg/dl low risk Chol 201-239 mg/dl borderline risk Chol 240 mg/dl and greater high risk Performed By: #### L IPID, [id number], TSH3 wRFLX #### [facility] [address] [place], [place] [address] [facility] Cholesterol in HDL [Mass/Vol] 46 mg/dL Normal 23-92 [facility] Comment on above: Result Comment: HDL CHOL ATP-III CLASSIFICATION Cardiovascular Risk HDL > or equal to 60 mg/dL LOW HDL < 40 mg/dL HIGH Performed By: #### L IPID, [id number], TSH3 wRFLX #### [facility] [address] Cholesterol.total/Ch olesterol in HDL [Mass ratio] 3.4 {ratio} Normal <5.0 [facility] Comment on above: Performed By: #### L IPID, [id number], TSH3 wRFLX #### [facility] [address] LDL Cholesterol,Calculat ed 90 mg/dL Normal 0-100 [facility] Comment on above: Result Comment: LDL ATP III CLASSIFICATION LDL less than 100 mg/dL Optimal LDL 100-129 mg/dL Near or above optimal LDL 130-159 mg/dL Borderline high LDL 160-189 mg/dL High LDL greater than 189 mg/dL Very high Performed By: #### L IPID, [id number], TSH3 wRFLX #### [address] Triglyceride w/Reflex 94 mg/dL Normal 0-149 [facility] Comment on above: Result Comment: TRIG ATP III CLASSIFICATION TRIG less than 150 mg/dL Normal TRIG 150-199 mg/dL Borderline high TRIG 200-500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 [facility] Comment on above: Performed By: #### C BC #### [facility] [address] [place] [address] Dr. Nilay Gibbs PLT 356 103/ul Normal 150-450 [facility] Comment on above: Performed By: #### C BC #### [facility] [address] [place] [address] Dr. Nilay Gibbs RBC 4.50 106/ul Critically low 4.70-6.10 [facility] Comment on above: Performed By: #### C BC #### [facility] [address] [place] [address] Dr. Nilay Gibbs WBC 10.0 103/ul Normal 4.0-11.0 [facility] Comment on above: Performed By: #### C BC #### [facility] [address] [place] [address] Dr. Nilay Gibbs PROF CHEM 8 (BAS METB)on Anion gap [Moles/Vol] 12.4 mmol/L Normal [facility] Comment on above: Performed By: #### A MM #### [facility] [address] [place] [address] Dr. Nilay Gibbs Calcium [Mass/Vol] 9.4 mg/dL Normal 8.5-10.1 [facility] Comment on above: Performed By: #### A MM #### [facility] [address] [place] [address] Dr. Nilay Gibbs Chloride [Moles/Vol] 105 mmol/L Normal 98-107 [facility] Comment on above: Performed By: #### A MM #### [facility] [address] [place] [address] [address] Nilay Gibbs CO2 [Moles/Vol] 25.6 mmol/L Normal 21.0-32.0 [facility] Comment on above: Performed By: #### A MM #### [facility] [address] [place] [address] [address] Nilay Gibbs Creatinine [Mass/Vol] 1.18 mg/dL Normal 0.70-1.30 [facility] Comment on above: Performed By: #### A MM #### [facility] [address] [place] [address] Dr. Nilay Gibbs EGFR-AF BURKINAN >60 Normal >=60 [facility] Comment on above: Performed By: #### A MM #### [facility] [address] [place] [address] Dr. Nilay Gibbs EGFR-NON AF BURKINAN >60 Normal >=60 [facility] Comment on above: Performed By: #### A MM #### [facility] [address] [place] [address] Dr. Nilay Gibbs Glucose [Mass/Vol] 125 mg/dL Critically high 74-106 [facility] Comment on above: Performed By: #### A MM #### [facility] [address] [place] [address] Dr. Nilay Gibbs Potassium [Moles/Vol] 4.3 mmol/L Normal 3.5-5.1 [facility] Comment on above: Performed By: #### A MM #### [facility] [address] [place] [address] [address] Nilay Gibbs Sodium [Moles/Vol] 139 mmol/L Normal 136-145 [facility] Comment on above: Performed By: #### A MM #### [facility] [address] [place] [address] Dr. Nilay Gibbs Urea nitrogen [Mass/Vol] 15.0 mg/dL Normal 7.0-18.0 [facility] Comment on above: Performed By: #### A MM #### [facility] [address] [place] [address] [address] Nilay Gibbs Urea nitrogen/Creatinine [Mass ratio] 12.7 mg/mg Normal [facility] Comment on above: Performed By: #### A MM #### [facility] [address] [place] [address] Dr. Nilay Gibbs CBC AUTO DIFFon 06-20-2022 BASO # 0.0 103/ul Normal 0.0-0.1 [facility] Comment on above: Performed By: #### A MM #### [facility] [address] [place] [address] Dr. Nilay Gibbs Basophils/100 WBC (Bld) 0.2 % Normal 0.2-2.0 [facility] Comment on above: Performed By: #### A MM #### [facility] [address] [place] [address] Dr. Nilay Gibbs EO # 0.0 103/ul Normal 0.0-0.7 [facility] Comment on above: Performed By: #### A MM #### [facility] [address] [place] [address] Dr. Nilay Gibbs Eosinophils/100 WBC (Bld) 0.3 % Critically low 0.9-7.0 [facility] Comment on above: Performed By: #### A MM #### [facility] [address] [place] [address] Dr. Nilay Gibbs Erythrocyte distribution width (RBC) [Ratio] 14.3 % Normal 11.0-15.0 [facility] Comment on above: Performed By: #### A MM #### [facility] [address] [place] [address] Dr. Nilay Gibbs Hematocrit (Bld) [Volume fraction] 39.3 % Critically low 42.0-54.0 [facility] Comment on above: Performed By: #### A MM #### [facility] [address] [place] [address] Dr. Nilay Gibbs Hemoglobin (Bld) [Mass/Vol] 13.1 g/dL Critically low 14.0-18.0 [facility] Comment on above: Performed By: #### A MM #### [facility] [address] [place] [address] Dr. Nilay Gibbs IG # 0.03 10e3/ul Normal 0.00-0.03 [facility] Comment on above: Performed By: #### A MM #### [facility] [address] [place] [address] Dr. Nilay Gibbs IG % 0.3 % Normal 0.0-0.5 [facility] Comment on above: Performed By: #### A MM #### [facility] [address] [place] [address] Dr. Nilay Gibbs LYMPH # 1.7 103/ul Normal 1.2-3.8 [facility] Comment on above: Performed By: #### A MM #### [facility] [address] [place] [address] Dr. Nilay Gibbs Lymphocytes/100 WBC (Bld) 14.5 % Critically low 20.5-60.0 [facility] Comment on above: Performed By: #### A MM #### [facility] [address] [place] [address] Dr. Nilay Gibbs MANUAL DIFF REQ NO Normal [facility] Comment on above: Performed By: #### A MM #### [facility] [address] [place] [address] Dr. Nilay Gibbs MCH (RBC) [Entitic mass] 29.2 pg Normal 25.9-34.0 [facility] Comment on above: Performed By: #### A MM #### [facility] [address] [place] [address] Dr. Nilay Gibbs MCHC (RBC) [Mass/Vol] 33.3 g/dL Normal 29.9-35.2 [facility] Comment on above: Performed By: #### A MM #### [facility] [address] [place] [address] Dr. Nilay Gibbs MCV (RBC) [Entitic vol] 87.5 fL Normal 80.0-94.0 [facility] Comment on above: Performed By: #### A MM #### [facility] [address] [place] [address] [address] Nilay Gibbs MONO # 1.3 103/ul Critically high 0.3-0.8 [facility] Comment on above: Performed By: #### A MM #### [facility] [address] [place] [address] [address] Nilay Gibbs Monocytes/100 WBC (Bld) 10.9 % Normal 1.7-12.0 [facility] Comment on above: Performed By: #### A MM #### [facility] [address] [place] [address] [address] Nilay Gibbs NEUT # 8.7 103/ul Critically high 1.4-6.5 [facility] Comment on above: Performed By: #### A MM #### [facility] [address] [place] [address] Dr. Nilay Gibbs Neutrophils/100 WBC (Bld) 73.8 % Normal 43.0-75.0 [facility] Comment on above: Performed By: #### A MM #### [facility] [address] [place] [address] [address] Nilay Gibbs Platelet mean volume (Bld) [Entitic vol] 10.9 fL Normal 9.5-13.5 [facility] Comment on above: Performed By: #### A MM #### [facility] [address] [place] [address] [address] Nilay Gibbs PLT 171 103/ul Normal 150-450 [facility] Comment on above: Performed By: #### A MM #### [facility] [address] [place] [address] [address] Nilay Gibbs RBC 4.49 106/ul Critically low 4.70-6.10 [facility] Comment on above: Performed By: #### A MM #### [facility] [address] [place] [address] [address] Nilay Gibbs WBC 11.7 103/ul Critically high 4.0-11.0 [facility] Comment on above: Performed By: #### A MM #### [facility] [address] [place] [address] Dr. Nilay Gibbs CRPon 06-20-2022 CRP 25.4 mg/dL Critically high <=1.0 [facility] Comment on above: Performed By: #### C RP, CMP #### [facility] [address] [place] [address] Dr. Nilay Gibbs CULTURE BLOODon 06-20-2022 Microscopic examination of blood, culture Culture Observations: NO GROWTH AT 5 DAYS. Normal [facility] Comment on above: Performed By: #### C MP #### [facility] [address] [place] [address] Dr. Nilay Gibbs Microscopic examination of blood, culture Culture Observations: NO GROWTH AT 5 DAYS. [facility] Comment on above: Performed By: #### C MP #### [facility] [address] [place] [address] Dr. Nilay Gibbs LACTATE/LACTIC ACIDon 2022 Lactate [Moles/Vol] 0.7 mmol/L Normal 0.4-2.0 [facility] Comment on above: Performed By: #### A MM #### [facility] [address] [place] [address] Dr. Nilay Gibbs PROF 14(COMP METB)on 023 Albumin [Mass/Vol] 3.8 g/dL Normal 3.4-5.0 [facility] Comment on above: Performed By: #### C RP, CMP #### [facility] [address] [place] [address] Dr. Nilay Gibbs Albumin/Globulin [Mass ratio] 1.1 {ratio} [facility] Comment on above: Performed By: #### C RP, CMP #### [facility] [address] [place] [address] Dr. Nilay Gibbs ALP [Catalytic activity/Vol] 85 U/L Normal 46-116 [facility] Comment on above: Performed By: #### C RP, CMP #### [facility] [address] [place] [address] Dr. Nilay Gibbs ALT [Catalytic activity/Vol] 29 U/L Normal 16-63 [facility] Comment on above: Performed By: #### C RP, CMP #### [facility] [address] [place] [address] Dr. Nilay Gibbs Anion gap [Moles/Vol] 15.2 mmol/L Normal [facility] Comment on above: Performed By: #### C RP, CMP #### [facility] [address] [place] [address] Dr. Nilay Gibbs AST [Catalytic activity/Vol] 20 U/L Normal 15-37 [facility] Comment on above: Performed By: #### C RP, CMP #### [facility] [address] [place] [address] Dr. Nilay Gibbs Bilirubin [Mass/Vol] 1.1 mg/dL Critically high 0.2-1.0 [facility] Comment on above: Performed By: #### C RP, CMP #### [facility] [address] [place] [address] Dr. Nilay Gibbs Calcium [Mass/Vol] 9.4 mg/dL Normal 8.5-10.1 [facility] Comment on above: Performed By: #### C RP, CMP #### [facility] [address] [place] [address] Dr. Nilay Gibbs Chloride [Moles/Vol] 99 mmol/L Normal 98-107 [facility] Comment on above: Performed By: #### C RP, CMP #### [facility] [address] [place] [address] Dr. Nilay Gibbs CO2 [Moles/Vol] 25.7 mmol/L Normal 21.0-32.0 [facility] Comment on above: Performed By: #### C RP, CMP #### [facility] [address] [place] [address] Dr. Nilay Gibbs Creatinine [Mass/Vol] 1.32 mg/dL Critically high 0.70-1.30 [facility] Comment on above: Performed By: #### C RP, CMP #### [facility] [address] [place] [address] Dr. Nilay Gibbs EGFR-AF BURKINAN >60 Normal >=60 [facility] Comment on above: Performed By: #### C RP, CMP #### [facility] [address] [place] [address] Dr. Nilay Gibbs EGFR-NON AF BURKINAN >60 Normal >=60 [facility] Comment on above: Performed By: #### C RP, CMP #### [facility] [address] [address] [address] Nilay Gibbs Globulin (S) [Mass/Vol] 3.6 g/dL Normal [facility] Comment on above: Performed By: #### C RP, CMP #### [facility] [address] [address] [address] Nilay Gibbs Glucose [Mass/Vol] 106 mg/dL Normal 74-106 [facility] Comment on above: Performed By: #### C RP, CMP #### [facility] [address] [place] [address] Dr. Nilay Gibbs Potassium [Moles/Vol] 3.9 mmol/L Normal 3.5-5.1 [facility] Comment on above: Performed By: #### C RP, CMP #### [facility] [address] [place] [address] Dr. Nilay Gibbs Protein [Mass/Vol] 7.4 g/dL Normal 6.4-8.2 [facility] Comment on above: Performed By: #### C RP, CMP #### [facility] [address] [place] [address] Dr. Nilay Gibbs Sodium [Moles/Vol] 136 mmol/L Normal 136-145 [facility] Comment on above: Performed By: #### C RP, CMP #### [facility] [address] [address] [address] Nilay Gibbs Urea nitrogen [Mass/Vol] 10.0 mg/dL Normal 7.0-18.0 [facility] Comment on above: Performed By: #### C RP, CMP #### [facility] [address] [address] [address] Nilay Gibbs Urea nitrogen/Creatinine [Mass ratio] 7.6 mg/mg Normal [facility] Comment on above: Performed By: #### C RP, CMP #### [facility] [address] [address] [address] Nilay Gibbs [facility] 46 mm/hr Critically high <=15 [facility] Comment on above: Performed By: #### S EDR #### [facility] [address] [address] [address] Nilay Gibbs Covid-19 PCR ([facility])on SARS-CoV-2 (COVID-19) RNA TALHA+probe Ql (Unsp spec) Not detected Normal NOT DETECTED [facility] Comment on above: Result Comment: When diagnostic [...] for this test is supported by the [employer]er of Health and Human Service's declaration that [...] MM #### [facility] [address] [place], [place] [id number] Dr. Nilay Gibbs INFLUENZA A AND B AGon 01-31 INFLUANEGH SEE BELOW Normal [facility] Comment on above: Result Comment: Nega tive for Flu A protein angiten. Infection due to Flu A cannot be ruled out. Flu A angiten in the sample may be below the detection limit of the test. Performed By: #### A MM #### [facility] [address] [address] [address] Nilay Gibbs INFLUBNEGH SEE BELOW Normal [facility] Comment on above: Result Comment: Nega tive for Flu B protein antigen. Infection due to Flu B cannot be ruled out. Flu B antigen in the sample may be below the detection limit of the test. Performed By: #### A MM #### [facility] [address] [address] [address] Nilay Gibbs INFLUENZA A AG Negative Normal NEGATIVE SEE COMMENT [facility] Comment on above: Performed By: #### A MM #### [facility] [address] [address] [address] Nilay Gibbs INFLUENZA B AG Negative Normal NEGATIVE SEE COMMENT [facility] Comment on above: Performed By: #### A MM #### [facility] [address] [address] [address] Nilay Gibbs INTERNAL CONTROLS Within Normal Limits Normal Wi thin Normal Limits [facility] Comment on above: Performed By: #### A MM #### [facility] [address] [address] [address] Nilay Gibbs Cholesterol [Mass/volume] in Serum or PlasmaOrdered By: Adam Young on 12-08-2021 Cholesterol [Mass/Vol] 205 mg/dL 140-200 [facility] Comment on above: Chol less than 200 m g/dl low riskChol 201-239 mg/dl borderline riskChol 240 mg/dl and greater high risk Cholesterol in LDL Calc [Mas s/Vol]Ordered By: Adam Young on 12-08-2021 Cholesterol in LDL [Mass/Vol] 120 mg/dL 0-100 [facility] Comment on above: LDL ATP III CLASSIFI CATIONLDL less than 100 mg/dL OptimalLDL 100-129 mg/dL Near or above optimalLDL 130-159 mg/dL Borderline highLDL 160-189 mg/dL HighLDL greater than 189 mg/dL Very high Cholesterol in VLDL Calc [Ma ss/Vol]Ordered By: Adam Young on 12-08-2021 Cholesterol in VLDL [Mass/Vol] 37 mg/dL [facility] No Panel InformationOrdered By: Adam Young on 12-08-2021 25-Hydroxy Vitamin D Total 50.6 ng/mL 30-100 [facility] Comment on above: VITAMIN D STATUS [...] Cholesterol in HDL [Mass/Vol] 47 mg/dL 29-71 [facility] Comment on above: HDL CHOL ATP-III CLA SSIFICATION Cardiovascular RiskHDL > or equal to 60 mg/dL LOWHDL < 40 mg/dL HIGH Serum or plasma total choles terol/high density lipoprotein (HDL) cholesterol mass ratOrdered By: Adam Young on 12-08-2021 Cholesterol.total/Ch olesterol in HDL [Mass ratio] 4.4 {ratio} <5.0 [facility] TSH DL <= 0.005 mIU/L QnOrde red By: Adam Young on 12-08-2021 TSH Qn 0.75 m[IU]/L 0.45-5.33 [facility] Triglyceride [Mass/volume] i n Serum or PlasmaOrdered By: Adam Young on 12-08-2021 Triglyceride [Mass/Vol] 188 mg/dL 35-149 [facility] Comment on above: TRIG ATP III CLASSIF ICATIONTRIG less than 150 mg/dL NormalTRIG 150-199 mg/dL Borderline highTRIG 200-500 mg/dL High TRIG greater than 500 mg/dL Very highStandard traceable to the Center for Disease Conrtrol and Prevention (CDC) test method. Covid-19 PCR ([facility])on SARS-CoV-2 (COVID-19) RNA TALHA+probe Ql (Unsp spec) Not detected Normal NOT DETECTED [facility] Comment on above: Result Comment: When diagnostic [...] for this test is supported by the Hunter of Health and Human Service's declaration that [...] MP #### [facility] [address] [place] [address] Dr. Nilay Gibbs ETHANOL (BLD ALC)on 12-08-19 Ethanol [Mass/Vol] 288 mg/dL Normal [facility] Comment on above: Performed By: #### C MP #### [facility] [address] [place] [address] Dr. Nilay Gibbs ALC NOTE NOTE: 80 mg/dl is th e legal limit for a blood alcohol level Normal [facility] Comment on above: Performed By: #### C MP #### [facility] [address] [place] [address] Dr. Nilay Gibbs Performed By: #### A MM #### [facility] [address] [place] [address] Dr. Nilay Gibbs Ethanol [Mass/Vol] 130 mg/dL Normal [facility] Comment on above: Performed By: #### A MM #### [facility] [address] [place] [address] Dr. Nilay Gibbs Ethanol [Mass/Vol] 196 mg/dL Normal [facility] Comment on above: Performed By: #### A MM #### [facility] [address] [place] [address] Dr. Nilay Gibbs ACETAMINOPHENon 12-06-2021 Acetaminophen [Mass/Vol] ug/mL Critically low 10.0-30.0 [facility] Comment on above: Performed By: #### A CET #### [facility] [address] [address] [address] Nilay Gibbs AMMONIAon 12-06-2021 Ammonia (P) [Moles/Vol] 22 umol/L Normal 11-32 [facility] Comment on above: Performed By: #### A MM #### [facility] [address] [place] [address] Dr. Nilay Gibbs CBC AUTO DIFFon 12-06-2021 BASO # 0.0 103/ul Normal 0.0-0.1 [facility] Comment on above: Performed By: #### A MM #### [facility] [address] [place] [address] Dr. Nilay Gibbs Basophils/100 WBC (Bld) 0.5 % Normal 0.2-2.0 [facility] Comment on above: Performed By: #### A MM #### [facility] [address] [place] [address] Dr. Nilay Gibbs EO # 0.1 103/ul Normal 0.0-0.7 [facility] Comment on above: Performed By: #### A MM #### [facility] [address] [place] [address] Dr. Nilay Gibbs Eosinophils/100 WBC (Bld) 1.0 % Normal 0.9-7.0 [facility] Comment on above: Performed By: #### A MM #### [facility] [address] [place] [address] Dr. Nilay Gibbs Erythrocyte distribution width (RBC) [Ratio] 12.9 % Normal 11.0-15.0 [facility] Comment on above: Performed By: #### A MM #### [facility] [address] [place] [address] Dr. Nilay Gibbs Hematocrit (Bld) [Volume fraction] 40.5 % Critically low 42.0-54.0 [facility] Comment on above: Performed By: #### A MM #### [facility] [address] [place] [address] Dr. Nilay Gibbs Hemoglobin (Bld) [Mass/Vol] 13.9 g/dL Critically low 14.0-18.0 [facility] Comment on above: Performed By: #### A MM #### [facility] [address] [place] [address] Dr. Nilay Gibbs IG # 0.02 10e3/ul Normal 0.00-0.03 [facility] Comment on above: Performed By: #### A MM #### [facility] [address] [place] [address] Dr. Nilay Gibbs IG % 0.3 % Normal 0.0-0.5 [facility] Comment on above: Performed By: #### A MM #### [facility] [address] [place] [address] Dr. Nilay Gibbs LYMPH # 2.7 103/ul Normal 1.2-3.8 [facility] Comment on above: Performed By: #### A MM #### [facility] [address] [place] [address] Dr. Nilay Gibbs Lymphocytes/100 WBC (Bld) 45.2 % Normal 20.5-60.0 [facility] Comment on above: Performed By: #### A MM #### [facility] [address] [place] [address] Dr. Nilay Gibbs MANUAL DIFF REQ NO Normal [facility] Comment on above: Performed By: #### A MM #### [facility] [address] [place] [address] Dr. Nilay Gibbs MCH (RBC) [Entitic mass] 29.8 pg Normal 25.9-34.0 [facility] Comment on above: Performed By: #### A MM #### [facility] [address] [place] [address] Dr. Nilay Gibbs MCHC (RBC) [Mass/Vol] 34.3 g/dL Normal 29.9-35.2 [facility] Comment on above: Performed By: #### A MM #### [facility] [address] [place] [address] Dr. Nilay Gibbs MCV (RBC) [Entitic vol] 86.9 fL Normal 80.0-94.0 [facility] Comment on above: Performed By: #### A MM #### [facility] [address] [address] [address] Nilay Gibbs MONO # 0.4 103/ul Normal 0.3-0.8 [facility] Comment on above: Performed By: #### A MM #### [facility] [address] [address] [address] Nilay Gibbs Monocytes/100 WBC (Bld) 6.3 % Normal 1.7-12.0 [facility] Comment on above: Performed By: #### A MM #### [facility] [address] [place] [address] Dr. Nilay Gibbs NEUT # 2.7 103/ul Normal 1.4-6.5 [facility] Comment on above: Performed By: #### A MM #### [facility] [address] [place] [address] Dr. Nilay Gibbs Neutrophils/100 WBC (Bld) 46.7 % Normal 43.0-75.0 [facility] Comment on above: Performed By: #### A MM #### [facility] [address] [place] [address] Dr. Nilay Gibbs Platelet mean volume (Bld) [Entitic vol] 10.4 fL Normal 9.5-13.5 [facility] Comment on above: Performed By: #### A MM #### [facility] [address] [place] [address] Dr. Nilay Gibbs PLT 237 103/ul Normal 150-450 [facility] Comment on above: Performed By: #### A MM #### [facility] [address] [place] [address] Dr. Nilay Gibbs RBC 4.66 106/ul Critically low 4.70-6.10 [facility] Comment on above: Performed By: #### A MM #### [facility] [address] [place] [address] Dr. Nilay Gibbs WBC 5.9 103/ul Normal 4.0-11.0 [facility] Comment on above: Performed By: #### A MM #### [facility] [address] [place] [address] Dr. Nilay Gibbs DRUG SCREEN RAPID (URINE)on 12-06-2021 AMP Negative Normal NEGATIVE [facility] Comment on above: Performed By: #### D RUGRPD #### [facility] [address] [place] [address] Dr. Nilay Gibbs BAR Negative Normal NEGATIVE [facility] Comment on above: Performed By: #### D RUGRPD #### [facility] [address] [place] [address] Dr. Nilay Gibbs BUP Negative Normal NEGATIVE [facility] Comment on above: Performed By: #### D RUGRPD #### [facility] [address] [place] [address] Dr. Nilay Gibbs BZO Positive Abnormal NEGATIVE [facility] Comment on above: Performed By: #### D RUGRPD #### [facility] [address] [place] [address] Dr. Nilay Gibbs ROQUE Negative Normal NEGATIVE [facility] Comment on above: Performed By: #### D RUGRPD #### [facility] [address] [place] [address] Dr. Nilay Gibbs CUT-OFFS SEE BELOW Normal [facility] Comment on above: Result Comment: AMP [...] RUGRPD #### [facility] [address] [place] [address] Dr. Nilay Gibbs DRUG CUT HEADER DRUG CLASS TEST SYST EM CUT-OFF CONCENTRATIONS ARE FOLLOWS: Normal [facility] Comment on above: Performed By: #### D RUGRPD #### [facility] [address] [place] [address] Dr. Nilay Gibbs mAMP Negative Normal NEGATIVE [facility] Comment on above: Performed By: #### D RUGRPD #### [facility] [address] [address] [address] Nilay Gibbs MTD Negative Normal NEGATIVE [facility] Comment on above: Performed By: #### D RUGRPD #### [facility] [address] [address] [address] Nilay Gibbs OPI Negative Normal NEGATIVE [facility] Comment on above: Performed By: #### D RUGRPD #### [facility] [address] [place] [address] Dr. Nilay Gibbs OXY Negative Normal NEGATIVE [facility] Comment on above: Performed By: #### D RUGRPD #### [facility] [address] [place] [address] Dr. Nilay Gibbs PCP Negative Normal NEGATIVE [facility] Comment on above: Performed By: #### D RUGRPD #### [facility] [address] [place] [address] Dr. Nilay Gibbs PPX Negative Normal NEGATIVE [facility] Comment on above: Performed By: #### D RUGRPD #### [facility] [address] [place] [address] Dr. Nilay Gibbs TCA Negative Normal NEGATIVE [facility] Comment on above: Performed By: #### D RUGRPD #### [facility] [address] [place] [address] Dr. Nilay Gibbs THC Negative Normal NEGATIVE [facility] Comment on above: Performed By: #### D RUGRPD #### [facility] [address] [place] [address] Dr. Nilay Gibbs ETHANOL (BLD ALC)on 12-07-19 ALC NOTE NOTE: 80 mg/dl is th e legal limit for a blood alcohol level Normal [facility] Comment on above: Performed By: #### C MP #### [facility] [address] [place] [address] Dr. Nilay Gibbs Ethanol [Mass/Vol] 336 mg/dL Normal [facility] Comment on above: Performed By: #### C MP #### [facility] [address] [place] [address] Dr. Nilay Gibbs PROF 14(COMP METB)on 022 Albumin [Mass/Vol] 4.2 g/dL Normal 3.4-5.0 [facility] Comment on above: Performed By: #### C MP #### [facility] [address] [place] [address] Dr. Nilay Gibbs Albumin/Globulin [Mass ratio] 1.3 {ratio} Normal [facility] Comment on above: Performed By: #### C MP #### [facility] [address] [place] [address] Dr. Nilay Gibbs ALP [Catalytic activity/Vol] 104 U/L Normal 46-116 [facility] Comment on above: Performed By: #### C MP #### [facility] [address] [place] [address] Dr. Nilay Gibbs ALT [Catalytic activity/Vol] 41 U/L Normal 16-63 [facility] Comment on above: Performed By: #### C MP #### [facility] [address] [place] [address] Dr. Nilay Gibbs Anion gap [Moles/Vol] 11.5 mmol/L Normal [facility] Comment on above: Performed By: #### C MP #### [facility] [address] [place] [address] Dr. Nilay Gibbs AST [Catalytic activity/Vol] 37 U/L Normal 15-37 [facility] Comment on above: Performed By: #### C MP #### [facility] [address] [place] [address] Dr. Nilay Gibbs Bilirubin [Mass/Vol] 0.2 mg/dL Normal 0.2-1.0 [facility] Comment on above: Performed By: #### C MP #### [facility] [address] [place] [address] Dr. Nilay Gibbs Calcium [Mass/Vol] 8.6 mg/dL Normal 8.5-10.1 [facility] Comment on above: Performed By: #### C MP #### [facility] [address] [address] [address] Nilay Gibbs Chloride [Moles/Vol] 97 mmol/L Critically low 98-107 [facility] Comment on above: Performed By: #### C MP #### [facility] [address] [address] [address] Nilay Gibbs CO2 [Moles/Vol] 26.0 mmol/L Normal 21.0-32.0 [facility] Comment on above: Performed By: #### C MP #### [facility] [address] [address] [address] Nilay Gibbs Creatinine [Mass/Vol] 1.47 mg/dL Critically high 0.70-1.30 [facility] Comment on above: Performed By: #### C MP #### [facility] [address] [place] [address] Dr. Nilay Gibbs EGFR-AF BURKINAN >60 Normal >=60 [facility] Comment on above: Performed By: #### C MP #### [facility] [address] [address] [address] Nilay Gibbs EGFR-NON AF BURKINAN 56 mL/min/1.73m2 Critically low >=60 [facility] Comment on above: Performed By: #### C MP #### [facility] [address] [address] [address] Nilay Gibbs Globulin (S) [Mass/Vol] 3.2 g/dL Normal [facility] Comment on above: Performed By: #### C MP #### [facility] [address] [address] [address] Nilay Gibbs Glucose [Mass/Vol] 117 mg/dL Critically high 74-106 [facility] Comment on above: Performed By: #### C MP #### [facility] [address] [address] [address] Nilay Gibbs Potassium [Moles/Vol] 3.5 mmol/L Normal 3.5-5.1 [facility] Comment on above: Performed By: #### C MP #### [facility] [address] [address] [address] Nilay Gibbs Protein [Mass/Vol] 7.4 g/dL Normal 6.4-8.2 [facility] Comment on above: Performed By: #### C MP #### [facility] [address] [address] [address] Nilay Gibbs Sodium [Moles/Vol] 131 mmol/L Critically low 136-145 [facility] Comment on above: Performed By: #### C MP #### [facility] [address] [address] [address] Nilay Gibbs Urea nitrogen [Mass/Vol] 14.0 mg/dL Normal 7.0-18.0 [facility] Comment on above: Performed By: #### C MP #### [facility] [address] [address] [address] Nilay Gibbs Urea nitrogen/Creatinine [Mass ratio] 9.5 mg/mg Normal [facility] Comment on above: Performed By: #### C MP #### [facility] [place] [facility] [address] [address] [address] Nilay Gibbs SALICYLATEon 12-06-2021 SALICYLATE <2.8 Normal <=19.9 [facility] Comment on above: Performed By: #### A MM #### [facility] [place] [facility] [address] [address] [address] Nilay Gibbs MRI Shoulder w/o Lefton [...] by Stephen Ware on 11/11/2021 0955 Normal [facility] Activated partial thrombopla stin time (aPTT) in platelet poor plasma by coagulation aOrdered By: Kristal Goldberg on 09-27-2021 aPTT Coag (PPP) [Time] 34.7 s 25.1-36.5 [facility] Albumin [Mass/volume] in Ser um or PlasmaOrdered By: Kristal Goldberg on 09-27-2021 Albumin [Mass/Vol] 4.1 g/dL 3.2-5.5 [facility] Basophils Auto (Bld) [#/Vol] Ordered By: Kristal Goldberg on 09-27-2021 Basophils (Bld) [#/Vol] 0.0 10*3/uL 0.0-0.2 [facility] Basophils/100 WBC Auto (Bld) Ordered By: Kristal Goldberg on 09-27-2021 Basophils/100 WBC (Bld) 0.3 % . [facility] Bilirubin Auto test strip Ql (U)Ordered By: Kristal Goldberg on 09-27-2021 Bilirubin Ql (U) Negative Negative [facility] Blood hemoglobin measurement (mass/volume)Ordered By: Kristal oGldberg on 09-27-2021 Hemoglobin (Bld) [Mass/Vol] 13.6 g/dL 13.0-17.0 [facility] Blood leukocytes automated c ount (number/volume)Ordered By: Kristal Goldberg on 09-27-2021 WBC (Bld) [#/Vol] 5.7 10*3/uL 4.5-11.0 [facility] CBC AUTO DIFFon 09-27-2021 BASO # 0.0 103/ul Normal 0.0-0.1 [facility] Comment on above: Performed By: #### A MM #### [facility] [place] [facility] [address] [address] [address] Nilay Gibbs Basophils/100 WBC (Bld) 0.5 % Normal 0.2-2.0 [facility] Comment on above: Performed By: #### A MM #### [facility] [place] [facility] [address] [address] [address] Nilay Gibbs EO # 0.1 103/ul Normal 0.0-0.7 [facility] [place] Comment on above: Performed By: #### A MM #### [facility] [place] [facility] [address] [place] [address] Dr. Nilay Gibbs Eosinophils/100 WBC (Bld) 1.6 % Normal 0.9-7.0 [facility] Comment on above: Performed By: #### A MM #### [facility] [place] [facility] [address] [place] [address] Dr. Nilay Gibbs Erythrocyte distribution width (RBC) [Ratio] 14.0 % Normal 11.0-15.0 [facility] Comment on above: Performed By: #### A MM #### [facility] [place] [facility] [address] [place] [address] Dr. Nilay Gibbs Hematocrit (Bld) [Volume fraction] 40.2 % Critically low 42.0-54.0 [facility] Comment on above: Performed By: #### A MM #### [facility] [place] [facility] [address] [place] [address] Dr. Nilay Gibbs Hemoglobin (Bld) [Mass/Vol] 13.7 g/dL Critically low 14.0-18.0 [facility] Comment on above: Performed By: #### A MM #### [facility] [address] [place] [address] Dr. Nilay Gibbs IG # 0.01 10e3/ul Normal 0.00-0.03 [facility] Comment on above: Performed By: #### A MM #### [facility] [place] [facility] [address] [place] [address] Dr. Nilay Gibbs IG % 0.2 % Normal 0.0-0.5 [facility] Comment on above: Performed By: #### A MM #### [facility] [place] [facility] [address] [place] [address] Dr. Nilay Gibbs LYMPH # 2.1 103/ul Normal 1.2-3.8 [facility] Comment on above: Performed By: #### A MM #### [facility] [address] [place] [address] Dr. Nilay Gibbs Lymphocytes/100 WBC (Bld) 37.1 % Normal 20.5-60.0 [facility] Comment on above: Performed By: #### A MM #### [facility] [address] [place] [address] Dr. Nilay Gibbs MANUAL DIFF REQ NO Normal [facility] Comment on above: Performed By: #### A MM #### [facility] [address] [place] [address] Dr. Nilay Gibbs MCH (RBC) [Entitic mass] 30.1 pg Normal 25.9-34.0 [facility] Comment on above: Performed By: #### A MM #### [facility] [address] [place] [address] Dr. Nilay Gibbs MCHC (RBC) [Mass/Vol] 34.1 g/dL Normal 29.9-35.2 [facility] Comment on above: Performed By: #### A MM #### [facility] [place] [facility] [address] [place] [address] Dr. Nilay Gibbs MCV (RBC) [Entitic vol] 88.4 fL Normal 80.0-94.0 [facility] Comment on above: Performed By: #### A MM #### [facility] [place] [facility] [address] [place] [address] Dr. Nilay Gibbs MONO # 0.4 103/ul Normal 0.3-0.8 [facility] Comment on above: Performed By: #### A MM #### [facility] [place] [facility] [address] [place] [address] Dr. Nilay Gibbs Monocytes/100 WBC (Bld) 7.2 % Normal 1.7-12.0 [facility] Comment on above: Performed By: #### A MM #### [facility] [place] [facility] [address] [place] [address] Dr. Nilay Gibbs NEUT # 3.1 103/ul Normal 1.4-6.5 [facility] Comment on above: Performed By: #### A MM #### [facility] [place] [facility] [address] [place] [address] Dr. Nilay Gibbs Neutrophils/100 WBC (Bld) 53.4 % Normal 43.0-75.0 [facility] Comment on above: Performed By: #### A MM #### [facility] [place] [facility] [address] [place] [address] Dr. Nilay Gibbs Platelet mean volume (Bld) [Entitic vol] 10.3 fL Normal 9.5-13.5 [facility] Comment on above: Performed By: #### A MM #### [facility] [address] [place] [address] Dr. Nilay Gibbs PLT 254 103/ul Normal 150-450 [facility] Comment on above: Performed By: #### A MM #### [facility] [place] [facility] [address] [place] [address] Dr. Nilay Gibbs RBC 4.55 106/ul Critically low 4.70-6.10 [facility] Comment on above: Performed By: #### A MM #### [facility] [place] [facility] [address] [place] [address] Dr. Nilay Gibbs WBC 5.7 103/ul Normal 4.0-11.0 [facility] Comment on above: Performed By: #### A MM #### [facility] [address] [place] [address] HEAD WO CONon [...] by: RUFINA MARIN Date: 2021-09-27 10:27 Normal [facility] CTA HEAD WO W CONon 09-28-19 [...] NEL KING Date: 2021-09-27 12:19 Normal [facility] CTA NECK WO W CONon 09-28-19 [...] by: NEL KING Date: 2021-09-27 12:06 Normal [facility] Creatine kinase [Enzymatic a ctivity/volume] in Serum or PlasmaOrdered By: Kristal Goldberg on 09-27-2021 CK [Catalytic activity/Vol] 181 U/L 22-269 [facility] Creatinine and Glomerular fi ltration rate.predicted panel (S/P/Bld)Ordered By: Kristal Goldberg on 09-27-2021 Creatinine [Mass/Vol] 1.36 mg/dL 0.64-1.27 [facility] Eosinophils Auto (Bld) [#/Vo l]Ordered By: Kristal Goldberg on 09-27-2021 Eosinophils (Bld) [#/Vol] 0.1 10*3/uL 0.0-0.45 [facility] Eosinophils/100 WBC Auto (Bl d)Ordered By: Kristal Goldberg on 09-27-2021 Eosinophils/100 WBC (Bld) 1.2 % . [facility] Erythrocyte distribution wid th Auto (RBC) [Ratio]Ordered By: Kristal Goldberg on 09-27-2021 Erythrocyte distribution width (RBC) [Ratio] 14.5 % 12.0-14.8 [facility] Estimated glomerular filtrat ion rate (GFR) non- AmericanOrdered By: Kristal Goldberg on 09-27-2021 GFR/1.73 sq M.predicted among non-blacks MDRD (S/P/Bld) [Vol rate/Area] > 60 mL/Min [facility] Globulin Calc (S) [Mass/Vol] Ordered By: Kristal Goldberg on 09-27-2021 Globulin (S) [Mass/Vol] 2.4 g/dL [facility] Hematocrit Auto (Bld) [Volum e fraction]Ordered By: Kristal Goldberg on 09-27-2021 Hematocrit (Bld) [Volume fraction] 40.8 % 38.8-50.0 [facility] Ketones Auto test strip (U) [Mass/Vol]Ordered By: Kristal Goldberg on 09-27-2021 Ketones (U) [Mass/Vol] Negative Negative [facility] Laboratory - CoagulationOrde red By: Kristal Goldberg on 09-27-2021 PT Coag (PPP) [Time] 11.8 s 9.0-12.9 [facility] - Hematology and Cell countsOrdered By: Kristal Goldberg on 09-27-2021 Nucleated RBC/100 WBC (Bld) [Ratio] 0.0 % 0-0.5 [facility] Lymphocytes Auto (Bld) [#/Vo l]Ordered By: Kristal Goldberg on 09-27-2021 Lymphocytes (Bld) [#/Vol] 1.8 10*3/uL 1.00-4.8 [facility] Lymphocytes/100 WBC Auto (Bl d)Ordered By: Kristal Goldberg on 09-27-2021 Lymphocytes/100 WBC (Bld) 31.2 % . [facility] MCH Auto (RBC) [Entitic mass ]Ordered By: Kristal Goldberg on 09-27-2021 MCH (RBC) [Entitic mass] 30.1 pg 27.5-35.2 [facility] MCHC Auto (RBC) [Mass/Vol]Or dered By: Kristal Goldberg on 09-27-2021 MCHC (RBC) [Mass/Vol] 33.4 g/dL 32.5-35.6 [facility] MCV Auto (RBC) [Entitic vol] Ordered By: Kristal Goldberg on 09-27-2021 MCV (RBC) [Entitic vol] 90.3 fL 83.5-101 [facility] Monocytes Auto (Bld) [#/Vol] Ordered By: Kristal Goldberg on 09-27-2021 Monocytes (Bld) [#/Vol] 0.3 10*3/uL 0.0-0.8 [facility] Monocytes/100 WBC Auto (Bld) Ordered By: Kristal Goldberg on 09-27-2021 Monocytes/100 WBC (Bld) 6.0 % . [facility] Neutrophils Auto (Bld) [#/Vo l]Ordered By: Kristal Goldberg on 09-27-2021 Neutrophils (Bld) [#/Vol] 3.5 10*3/uL 1.8-7.7 [facility] Neutrophils/100 WBC Auto (Bl d)Ordered By: Kristal Goldberg on 09-27-2021 Neutrophils/100 WBC (Bld) 61.3 % . [facility] No Panel InformationOrdered By: Kristal Goldberg on 09-27-2021 Estimated GFR () > 60 mL/Min [facility] Comment on above: GFR estimated refere nce range: According to KDOQI guidelines, <60 ml/min/1.73m2 is sufficient to diagnose a patient with chronic kidney disease. Pharmacy Creatinine Clearance (Chem 94.06 [facility] PROF CHEM 8 (BAS METB)on Anion gap [Moles/Vol] 10.0 mmol/L Normal [facility] Comment on above: Performed By: #### C MP #### [facility] [place] [facility] [address] [address] [address] Nilay Gibbs Calcium [Mass/Vol] 9.4 mg/dL Normal 8.5-10.1 [facility] Comment on above: Performed By: #### C MP #### [facility] [address] [address] [address] Nilay Gibbs Chloride [Moles/Vol] 103 mmol/L Normal 98-107 [facility] Comment on above: Performed By: #### C MP #### [facility] [place] [facility] [address] [address] [address] Nilay Gibbs CO2 [Moles/Vol] 27.6 mmol/L Normal 21.0-32.0 [facility] Comment on above: Performed By: #### C MP #### [facility] [place] [facility] [address] [place] [address] Dr. Nilay Gibbs Creatinine [Mass/Vol] 1.39 mg/dL Critically high 0.70-1.30 [facility] Comment on above: Performed By: #### C MP #### [facility] [address] [address] [address] Nilay Gibbs EGFR-AF BURKINAN >60 Normal >=60 [facility] Comment on above: Performed By: #### C MP #### [facility] [address] [address] [address] Nilay Gibbs EGFR-NON AF BURKINAN 60 mL/min/1.73m2 Normal >=60 [facility] Comment on above: Performed By: #### C MP #### [facility] [address] [address] [address] Nilay Gibbs Glucose [Mass/Vol] 115 mg/dL Critically high 74-106 [facility] Comment on above: Performed By: #### C MP #### [facility] [address] [address] [address] Nilay Gibbs Potassium [Moles/Vol] 3.6 mmol/L Normal 3.5-5.1 [facility] Comment on above: Performed By: #### C MP #### [facility] [address] [place] [address] Dr. Nilay Gibbs Sodium [Moles/Vol] 137 mmol/L Normal 136-145 [facility] Comment on above: Performed By: #### C MP #### [facility] [address] [place] [address] Dr. Nilay Gibbs Urea nitrogen [Mass/Vol] 17.0 mg/dL Normal 7.0-18.0 [facility] Comment on above: Performed By: #### C MP #### [facility] [address] [place] [address] Dr. Nilay Gibbs Urea nitrogen/Creatinine [Mass ratio] 12.2 mg/mg Normal [facility] Comment on above: Performed By: #### C MP #### [facility] [address] [place] [address] Dr. Nilay Gibbs PROTIMEon 09-27-2021 INR Coag (PPP) [Relative time] 0.99 {INR} Normal [facility] Comment on above: Performed By: #### P T, PTT #### [facility] [address] [place] [address] Dr. Nilay Gibbs INR GUIDELINES SEE BELOW Normal [facility] Comment on above: Result Comment: PETRONA RED INR: 2.0 - 3.0 CONDITIONS NOT LISTED BELOW 2.5 - 3.5 FOR PROSTHETIC HEART VALVE REPLACEMENT 2.5 - 3.5 RECURRENT THROMBOSIS Performed By: #### P T, PTT #### [facility] [address] [place] [address] Dr. Nilay Gibbs PT Coag (PPP) [Time] 10.7 s Normal 9.0-11.6 [facility] Comment on above: Performed By: #### P T, PTT #### [facility] [address] [place] [address] Dr. Nilay Gibbs PTTon 09-27-2021 aPTT Coag (Bld) [Time] 29.1 s Normal 22.3-36.2 [facility] Comment on above: Performed By: #### P T, PTT #### [facility] [place] [facility] [address] [place], [place] [address] Dr. Nilay Gibbs Platelet mean volume Auto (B ld) [Entitic vol]Ordered By: Kristal Goldberg on 09-27-2021 Platelet mean volume (Bld) [Entitic vol] 8.7 fL 6.6-10.1 [facility] Platelet poor plasma interna tional normalized ratio (INR) by coagulation assay (relatOrdered By: Kristal Goldberg on 09-27-2021 INR Coag (PPP) [Relative time] 1.1 {INR} [facility] Comment on above: INR Therapeutic Rang [...] 09-27-2021 Platelets (Bld) [#/Vol] 240 10*3/uL 150-450 [facility] Protein Auto test strip (U) [Mass/Vol]Ordered By: Kristal Goldberg on 09-27-2021 Protein (U) [Mass/Vol] Negative Negative [facility] Protein [Mass/volume] in Ser um or PlasmaOrdered By: Kristal Goldberg on 09-27-2021 Protein [Mass/Vol] 6.5 g/dL 6.1-7.9 [facility] RBC Auto (Bld) [#/Vol]Ordere d By: Kristal Goldberg on 09-27-2021 RBC (Bld) [#/Vol] 4.52 10*6/uL 3.90-5.60 [facility] Serum or plasma alanine marquez otransferase measurement without P-5'-P (enzymatic activiOrdered By: Kristal Goldberg on 09-27-2021 ALT No additional P-5'-P [Catalytic activity/Vol] 22 U/L 10-60 [facility] Serum or plasma albumin/glob ulin mass ratioOrdered By: Kristal Goldberg on 09-27-2021 Albumin/Globulin [Mass ratio] 1.7 {ratio} [facility] Serum or plasma alkaline kimi sphatase measurement (enzymatic activity/volume)Ordered By: Kristal Goldberg on 09-27-2021 ALP [Catalytic activity/Vol] 72 U/L 32-92 [facility] Serum or plasma aspartate am inotransferase measurement (enzymatic activity/volume)Ordered By: Kristal Goldberg on 09-27-2021 AST [Catalytic activity/Vol] 24 U/L 10-42 [facility] Serum or plasma calcium isabel urement (mass/volume)Ordered By: Kristal Goldberg on 09-27-2021 Calcium [Mass/Vol] 9.6 mg/dL 8.2-10.2 [facility] Serum or plasma chloride airam surement (moles/volume)Ordered By: Kristal Goldberg on 09-27-2021 Chloride [Moles/Vol] 98 mmol/L 95-114 [facility] Serum or plasma creatine kin ase MB (CKMB)/total creatine kinase (CK) ratio by calculaOrdered By: Kristal Goldberg on 09-27-2021 CK.MB Calc [Catalytic fraction] 1.7 % 0.00-2.50 [facility] Serum or plasma creatine kin ase MB measurement (mass/volume)Ordered By: Kristal Goldberg on 09-27-2021 CK.MB [Mass/Vol] 3.1 ng/mL 0.6-6.3 [facility] Serum or plasma glucose isabel urement (mass/volume)Ordered By: Kristal Goldberg on 09-27-2021 Glucose [Mass/Vol] 94 mg/dL 70-100 [facility] Comment on above: ADA recommended refe rence [...] on 09-27-2021 Potassium [Moles/Vol] 3.9 mmol/L 3.5-5.1 [facility] Serum or plasma sodium measu rement (moles/volume)Ordered By: Kristal Lermadeebony on 09-27-2021 Sodium [Moles/Vol] 135 mmol/L 136-146 [facility] Serum or plasma total biliru bin measurement (mass/volume)Ordered By: Kristal Goldberg on 09-27-2021 Bilirubin [Mass/Vol] 0.8 mg/dL 0.3-1.2 [facility] Serum or plasma total carbon dioxide measurement (moles/volume)Ordered By: Kristal Goldberg on 09-27-2021 CO2 [Moles/Vol] 24.8 mmol/L 22.0-30.0 [facility] Serum or plasma urea nitroge n measurement (mass/volume)Ordered By: Kristal Goldberg on 09-27-2021 Urea nitrogen [Mass/Vol] 13 mg/dL 9-23 [facility] TROPONIN, HIGH SENSITIVITYon 09-27-2021 HSTROP 4.5 pg/mL Normal 4.0-76.1 [facility] [place] Comment on above: Result Comment: CUT- OFF POINTS HAVE BEEN ESTABLISHED BASED ON THE FOURTH UNIVERSAL DEFINITIONS OF MYOCARDIAL INFARCTION. THE UPPER REFERENCE LIMIT (URL) OF TROPONIN, DEFINED THE 99TH PERCENTILE OF cTnI DISTRIBUTION IN A REFERENCE POPULATION, HAS BEEN CONFIRMED THE DECISION THRESHOLD FOR [place] DIAGNOSIS. Performed By: #### C MP #### [facility] [place] [facility] [address] [place] [address] Dr. Nilay Gibbs Troponin I.cardiac [Mass/vol ume] in Serum or Plasma by High sensitivity methodOrdered By: Kristal Goldberg on 09-27-2021 Troponin I.cardiac High sensitivity method [Mass/Vol] < 3 pg/mL 0-20 [facility] Urine appearanceOrdered By: Kristal Goldberg on 09-27-2021 Appearance (U) Clear Clear [facility] Urine colorOrdered By: Aurora Goldberg on 09-27-2021 Color (U) Yellow Yellow [facility] Urine glucose measurement by automated test strip (mass/volume)Ordered By: Kristal Goldberg on 09-27-2021 Glucose Auto test strip (U) [Mass/Vol] Normal mg/dL Normal [facility] Urine hemoglobin detection b y automated test stripOrdered By: Kristal Goldberg on 09-27-2021 Hemoglobin Auto test strip Ql (U) Negative Negative [facility] Urine leukocyte esterase det ection by automated test stripOrdered By: Kristal Goldberg on 09-27-2021 Leukocyte esterase Auto test strip Ql (U) Negative Negative [facility] Urine nitrite detection by a utomated test stripOrdered By: Kristal Goldberg on 09-27-2021 Nitrite Auto test strip Ql (U) Negative Negative [facility] Urobilinogen Auto test strip (U) [Mass/Vol]Ordered By: Kristal Goldberg on 09-27-2021 Urobilinogen (U) [Mass/Vol] Normal mg/dL Normal [facility] pH Auto test strip (U)Ordere d By: Kristal Goldberg on 09-27-2021 pH (U) 1.005 [pH] 1.001-1.030 [facility] pH (U) 5.5 [pH] 5.0-9.[address] [facility] [address] LUMBAR SPINE WO CONTRASTo n [...] 188 cm Marina Hemmer PA Work Phone: [facility] 04-20-2024 10:02-0500 Body mass index (BMI) [Ratio] 29.99 kg/m2 Marina Hemmer PA Work Phone: [facility] 04-20-2024 10:02-0500 Body weight 105.96 kg Marina Hemmer PA Work Phone: [facility] 04-20-2024 10:02-0500 Diastolic blood pressure 116 mm[Hg] Marina Hemmer PA Work Phone: [facility] 04-20-2024 10:02-0500 Heart rate 87 /min Marina Hemmer PA Work Phone: [facility] 02-20-2025 10:02-0500 Respiratory rate 16 /min Marina Hemmer PA Work Phone: [facility] 04-20-2024 10:02-0500 SaO2% (BldA) [Mass fraction] 98 % Marina Hemmer PA Work Phone: [facility] 04-20-2024 10:02-0500 Systolic blood pressure 158 mm[Hg] Marina Hemmer PA Work Phone: [facility] 01-21-2024 08:48-0500 Body height 188 cm Marina Hemmer PA Work Phone: [facility] 01-21-2024 08:48-0500 Body mass index (BMI) [Ratio] 31.35 kg/m2 Marina Hemmer PA Work Phone: [facility] 01-21-2024 08:48-0500 Body weight 110.77 kg Marina Hemmer PA Work Phone: [facility] 01-21-2024 08:48-0500 Diastolic blood pressure 101 mm[Hg] Marina Hemmer PA Work Phone: [facility] 01-21-2024 08:48-0500 Heart rate 87 /min Marina Hemmer PA Work Phone: [facility] 01-21-2024 08:48-0500 Respiratory rate 17 /min Marina Hemmer PA Work Phone: [facility] 01-21-2024 08:48-0500 SaO2% (BldA) [Mass fraction] 98 % Marina Hemmer PA Work Phone: [facility] 01-21-2024 08:48-0500 Systolic blood pressure 158 mm[Hg] Marina Hemmer PA Work Phone: [facility] 01-04-2024 08:12-0500 Body height 188 cm Delmy Boyle MD Work Phone: [facility] 01-04-2024 08:12-0500 Body mass index (BMI) [Ratio] 30.39 kg/m2 Delmy Boyle MD Work Phone: [facility] 01-04-2024 08:12-0500 Body weight 107.4 kg Delmy Boyle MD Work Phone: [facility] 01-04-2024 08:12-0500 Diastolic blood pressure 77 mm[Hg] Delmy Boyle MD Work Phone: [facility] 01-04-2024 08:12-0500 Heart rate 84 /min Delmy Boyle MD Work Phone: [facility] 01-04-2024 08:12-0500 Respiratory rate 18 /min Delmy Boyle MD Work Phone: [facility] 01-04-2024 08:12-0500 Systolic blood pressure 110 mm[Hg] Delmy Boyle MD Work Phone: [facility] 08-22-2023 12:40-0400 Body height 190.5 cm MD Leydi Aceves Work Phone: [facility] 08-22-2023 12:40-0400 Body mass index (BMI) [Ratio] 31.6 kg/m2 MD Leydi Aceves Work Phone: [facility] 08-22-2023 12:40-0400 Body temperature 98.6 [degF] MD Leydi Aceves Work Phone: [facility] 08-22-2023 12:40-0400 Body weight 114.81 kg MD Leydi Aceves Work Phone: [facility] 08-22-2023 12:40-0400 Heart rate 84 /min MD Leydi Aceves Work Phone: [facility] 08-22-2023 12:40-0400 Respiratory rate 18 /min MD Leydi Aceves Work Phone: [facility] 08-22-2023 12:40-0400 SaO2% (BldA) [Mass fraction] 97 % MD Leydi Aceves Work Phone: [facility] 06-24-2023 14:34-0400 Body mass index (BMI) [Ratio] 29.92 kg/m2 Delmy Boyle MD Work Phone: [facility] 06-24-2023 14:34-0400 Body weight 105.69 kg Delmy Boyle MD Work Phone: [facility] 06-24-2023 14:34-0400 Diastolic blood pressure 87 mm[Hg] Delmy Boyle MD Work Phone: [facility] 06-24-2023 14:34-0400 Heart rate 89 /min Delmy Boyle MD Work Phone: [facility] 06-24-2023 14:34-0400 Respiratory rate 18 /min Delmy Boyle MD Work Phone: [facility] 06-24-2023 14:34-0400 SaO2% (BldA) [Mass fraction] 100 % Delmy Boyle MD Work Phone: [facility] 06-24-2023 14:34-0400 Systolic blood pressure 124 mm[Hg] Delmy Boyle MD Work Phone: [facility] 01-01-2022 11:34-0400 Body weight 99.79 kg Delmy Boyle MD Work Phone: [facility] [facility] 01-[facility]-2022 11:34-0400 Diastolic blood pressure 65 mm[Hg] Delmy Boyle MD Work Phone: [facility] 01-01-2022 11:34-0400 Heart rate 65 /min Delmy Boyle MD Work Phone: [facility] 01-01-2022 11:34-0400 Systolic blood pressure 102 mm[Hg] Delmy Boyle MD Work Phone: [facility] 12-10-2021 15:30-0400 Diastolic blood pressure 71 mm[Hg] MD Leydi Aceves Work Phone: [facility] 12-10-2021 15:30-0400 Heart rate 70 /min MD Leydi Aceves Work Phone: [facility] 12-10-2021 15:30-0400 Respiratory rate 16 /min MD Leydi Aceves Work Phone: [facility] 12-10-2021 15:30-0400 SaO2% (BldA) [Mass fraction] 98 % MD Leydi Aceves Work Phone: [facility] 12-10-2021 15:30-0400 Systolic blood pressure 113 mm[Hg] MD Leydi Aceves Work Phone: [facility] 12-10-2021 07:30-0400 Body temperature 98 [degF] MD Leydi Aceves Work Phone: [facility] 12-08-2021 15:45-0400 Body height 190.5 cm MD Leydi Aceves Work Phone: [facility] 12-08-2021 08:56-0400 Body weight 99.79 kg MD Leydi Aceves Work Phone: [facility] 09-27-2021 21:38-0400 Heart rate 68 /min MD eLydi Aceves Work Phone: [facility] 09-27-2021 21:30-0400 Diastolic blood pressure 79 mm[Hg] MD Leydi Aceves Work Phone: [facility] 09-27-2021 21:30-0400 Respiratory rate 20 /min MD Leydi Aceves Work Phone: [facility] 09-27-2021 21:30-0400 SaO2% (BldA) [Mass fraction] 100 % MD Leydi Aceves Work Phone: [facility] 09-27-2021 21:30-0400 Systolic blood pressure 135 mm[Hg] MD Leydi Aceves Work Phone: [facility] 09-27-2021 18:31-0400 Body height 190.5 cm MD Leydi Aceves Work Phone: [facility] 07-30-2022 18:31-0400 Body temperature 98 [degF] MD Leydi Aceves Work Phone: [facility] 09-27-2021 18:31-0400 Body weight 99.79 kg MD Leydi Aceves Work Phone: [facility] Encounters Encounter Date Encounter Type Care [...] by physician Xr [facility] Work Phone: [facility] Radiology General Comment on above: 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] Start: 01-04-2024 End: 01-04-2024 ambulatory DELMY BOYLE Facility:[facility] Start: 01-04-2024 End: 01-04-2024 Patient encounter procedure Delmy Boyle MD Work Phone: Rheumatology Comment on above: Chronic tophaceous g out (Primary Dx); Stage 3 chronic kidney disease, unspecified whether stage 3a or 3b CKD (HCC); Encounter for long-term (current) use of medications; Other secondary osteoarthritis of multiple sites Start: 12-30-2023 End: 12-30-2023 ambulatory DELMY BOYLE Facility:[facility] Start: 12-30-2023 End: 12-30-2023 Clinisync [...] 08-22-2023 ambulatory MD Leydi Aceves Work Phone: [facility] Work Phone: Start: 08-22-2023 End: 08-22-2023 Patient encounter procedure MD Leydi Aceves Work Phone: [facility] [place] Work Phone: Start: 08-16-2023 Refill Delmy newton MD Work Phone: Rheumatology Comment on above: Refill Request Start: 08-03-2023 Registered Recurring MD Leydi cAeves Work Phone: [facility] Start: 08-03-2023 ambulatory Nicola Castellon acility:[facility] Start: 07-06-2023 ambulatory Delmy newton MD Work Phone: Rheumatology Start: 07-06-2023 Patient encounter procedure Delmy Boyle MD Work Phone: Rheumatology Comment on above: Flare up Start: 07-05-2023 Refill Delmy newton MD Work Phone: Rheumatology Comment on above: Refill Request Start: 06-24-2023 End: 06-24-2023 ambulatory DELMY BOYLE Facility:[facility] Start: 06-24-2023 End: 06-24-2023 Patient encounter procedure Delmy Boyle MD Work Phone: Rheumatology Comment on above: Chronic tophaceous g out (Primary Dx); Encounter for long-term (current) use of medications; Stage 3 chronic kidney disease, unspecified whether stage 3a or 3b CKD (HCC); Idiopathic chronic gout of multiple sites with tophus Start: 06-21-2023 End: 06-21-2023 ambulatory DELMY BOYLE Facility:[facility] Start: 06-10-2023 End: 06-10-2023 ambulatory LEYDI ACEVES Not Available Start: 05-09-2023 End: 05-12-2023 ambulatory Nicola Leyva Facility:[facility] Start: 04-05-2023 Refill Leydi Aceves Keena Mansfield Work Phone: [facility] Start: 03-08-2023 End: 03-08-2023 ambulatory DELMY BOYLE Facility:[facility] Start: 03-04-2023 End: 03-04-2023 ambulatory DELMY BOYLE Facility:[facility] Start: 02-24-2023 End: 02-24-2023 Emergency department patient visit Ladi Huber Facility:[facility] Start: 02-19-2023 End: 02-20-2023 [facility] Start: 11-13-2022 ambulatory Delmy newton MD Work Phone: Rheumatology Comment on above: Prednisone Start: 11-13-2022 E-mail encounter fro m caregiver Delmy Boyle MD Work Phone: [facility] Start: 11-13-2022 Telephone encounter Delmy luna MD Work Phone: [facility] [place] Comment on above: Patient Request Start: 07-24-2022 [...] stage 3a or 3b CKD ([facility]) Start: 12-19-2021 Refill Delmy newton MD Work Phone: Rheumatology Comment on above: Refill Request Start: 12-07-2021 End: 12-10-2021 Evaluation and management of inpatient MD Leydi Aceves Work Phone: [address] Start: 12-06-2021 End: 12-07-[address] LEYDI ACEVES Facility:[facility] Start: 10-19-2021 End: 10-19-2021 ambulatory ZHAO MAURER . Facility:[facility] Start: 09-27-2021 End: 09-27-2021 Emergency department patient visit MD Leydi Aceves Work Phone: [facility] Start: 09-27-2021 End: 09-27-2021 ambulatory ZHAO MAURER . 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 Start: 10-03-2024 End: 10-03-2024 Patient encounter procedure 10/03/2024 8:00 AM EDT Office Visit Rheumatology [address] [place], [place] [id number] [place] [address] [place], [place] [id number] Return in about 9 months (around 10/03/2024). Rheumatology Comment on above: Return in about 9 months (around ). Start: 09-25-2024 End: 12-25-2024 Alanine aminotransferase [Enzymatic activity/volume] in Serum or Plasma ALANINE AMINOTRANSFERASE / SGPT Lab Routine Chronic tophaceous gout Encounter for long-term (current) use of medications Expected: 09/25/2024 (Approximate), Expires: 12/25/2024 [facility] Comment on above: Expected: 09/25/2024 (Approximate), Expi res: 12/25/2024 Start: 09-25-2024 End: 12-25-2024 Albumin [Mass/volume] in Serum or Plasma ALBUMIN Lab Routine Chronic tophaceous gout Encounter for long-term (current) use of medications Expected: 09/25/2024 (Approximate), Expires: 12/25/2024 [facility] Comment on above: Expected: 09/25/2024 (Approximate), Expi res: 12/25/2024 Start: 09-25-2024 End: 12-25-2024 Aspartate aminotransferase [Enzymatic activity/volume] in Serum or Plasma ASPARTATE AMINOTRANSFERASE/SGOT Lab Routine Chronic tophaceous gout Encounter for long-term (current) use of medications Expected: 09/25/2024 (Approximate), Expires: 12/25/2024 [facility] Comment on above: Expected: 09/25/2024 (Approximate), Expi res: 12/25/2024 Start: 09-25-2024 End: 12-25-2024 C reactive protein [Mass/volume] in Serum or Plasma C-REACTIVE PROTEIN Lab Routine Chronic tophaceous gout Encounter for long-term (current) use of medications Expected: 09/25/2024 (Approximate), Expires: 12/25/2024 [facility] Comment on above: Expected: 09/25/2024 (Approximate), Expi res: 12/25/2024 Start: 09-25-2024 End: 12-25-2024 CBC W Auto Differential panel - Blood COMPLETE BLOOD COUNT AND DIFFERENTIAL Lab Routine Chronic tophaceous gout Encounter for long-term (current) use of medications Expected: 09/25/2024 (Approximate), Expires: 12/25/2024 [facility] Comment on above: Expected: 09/25/2024 (Approximate), Expi res: 12/25/2024 Start: 09-25-2024 End: 12-25-2024 CREATININE BLD CREATININE BLD Lab Routine Chronic tophaceous gout Encounter for long-term (current) use of medications Expected: 09/25/2024 (Approximate), Expires: 12/25/2024 [facility] Comment on above: Expected: 09/25/2024 (Approximate), Expi res: 12/25/2024 Start: 09-25-2024 End: 12-25-2024 Erythrocyte sedimentation rate SEDIMENTATION RATE, WESTERGREN Lab Routine Chronic tophaceous gout Encounter for long-term (current) use of medications Expected: 09/25/2024 (Approximate), Expires: 12/25/2024 [facility] Comment on above: Expected: 09/25/2024 (Approximate), Expi res: 12/25/2024 Start: 09-25-2024 End: 12-25-2024 Urate [Mass/volume] in Serum or Plasma URIC ACID Lab Routine Chronic tophaceous gout Encounter for long-term (current) use of medications Expected: 09/25/2024 (Approximate), Expires: 12/25/2024 [facility] Comment on above: Expected: 09/25/2024 (Approximate), Expi res: 12/25/2024 Start: 05-18-2024 End: 05-18-2024 Patient encounter procedure 05/18/2024 9:00 AM EDT Office Visit [facility] [address] [place] [address] Marina Rees PA [address] [place] [address] Arrived [facility] Comment on above: [...] [address] [place] [address] Marina Rees PA [address] [place] [address] Arrived [facility] Comment on above: Arrived Start: 03-04-2024 Creatinine measurement Serum Creatinine [facility] Start: 01-21-2024 End: 01-21-2024 Patient encounter procedure 01/21/2024 9:00 AM EST Office Visit [facility] [address] [place] [address] Marina Rees PA [address] [place] [address] [facility] Start: 01-17-2024 End: 01-17-2024 Patient encounter procedure 01/17/2024 9:15 AM EST Office Visit Orthopaedics [address] [place] [address] [place] [address] [place] [address] 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] Orthopaedics Comment on above: Other secondary osteoarthritis of multip le sites [M15.3] Start: 01-11-2024 End: 01-11-2024 Patient encounter procedure 01/11/2024 11:00 AM EST Office Visit [facility] [address] [facility] [address] [place] [id number] Leydi Aceves MD [address] [facility] [address] [place] [address] [facility] Start: 01-04-2024 End: 01-04-2024 Patient encounter procedure 01/04/2024 8:20 AM EST Office Visit Rheumatology [address] [place] [address] [place] [address] [place] [address] FU 6-7 MON WITH MD Rheumatology Comment on above: FU 6-7 MON WITH MD Start: 10-31-2023 Covid-19 Vaccine ( season) Covid-19 Vaccine ( season) [facility] Start: 10-31-2023 Influenza vaccination [facility] Start: 09-24-2023 End: 09-24-2023 Patient encounter procedure 09/24/2023 8:00 AM EDT Office Visit Rheumatology [address] [facility] [address] [facility], [place] [phone] Kelly Martell, HEAD ATHLETIC TRAINER.TUBE ROOM SUPERVISOR [address] [facility] [place] [id number] FU 3-4 MON WITH STEFANIA Rheumatology Comment on above: FU 3-4 MON WITH STEFANIA Start: 08-29-2023 Influenza vaccination Influenza Vaccine (#1) [facility] Comment on above: Postponed from 10/30/2022 (Other Patient Reasons) Start: 08-13-2023 Serum Creatinine Serum Creatinine [facility] Start: 03-01-2023 Behavioral Health Screening Behavioral Health Screening [facility] Start: 01-01-2023 BP CONTROLLED (<130/80) BP CONTROLLED (<130/80) [facility] Start: 10-30-2022 Covid-19 Vaccine () Covid-19 Vaccine () [facility] Start: 10-30-2022 Influenza vaccination [facility] Start: 07-13-2022 End: 09-12-2022 Alanine aminotransferase [Enzymatic activity/volume] in Serum or Plasma ALT/SGPT Lab 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 Encounter for long-term (current) use of medications Expected: 07/13/2022 (Approximate), Expires: 09/12/2022 [facility] Work Phone: Comment on above: Expected: 07/13/2022 (Approximate), Expi res: 09/12/2022 Start: 07-13-2022 End: 09-12-2022 Albumin [Mass/volume] in Serum or Plasma ALBUMIN BLD Lab 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 Encounter for long-term (current) use of medications Expected: 07/13/2022 (Approximate), Expires: 09/12/2022 [facility] Work Phone: Comment on above: Expected: 07/13/2022 (Approximate), Expi res: 09/12/2022 Start: 07-13-2022 End: 09-12-2022 Aspartate aminotransferase [Enzymatic activity/volume] in Serum or Plasma AST/SGOT BLD Lab 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 Encounter for long-term (current) use of medications Expected: 07/13/2022 (Approximate), Expires: 09/12/2022 [facility] Work Phone: Comment on above: Expected: 07/13/2022 (Approximate), Expi res: 09/12/2022 Start: 07-13-2022 End: 09-12-2022 C reactive protein [Mass/volume] in Serum or Plasma C-REACTIVE PROTEIN (CRP) Lab 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 Encounter for long-term (current) use of medications Expected: 07/13/2022 (Approximate), Expires: 09/12/2022 [facility] Work Phone: Comment on above: Expected: 07/13/2022 (Approximate), Expi res: 09/12/2022 Start: 07-13-2022 End: 09-12-2022 CBC W Auto Differential panel - Blood CBC + DIFF Lab 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 Encounter for long-term (current) use of medications Expected: 07/13/2022 (Approximate), Expires: 09/12/2022 [facility] Work Phone: Comment on above: Expected: 07/13/2022 (Approximate), Expi res: 09/12/2022 Start: 07-13-2022 End: 09-12-2022 CREATININE BLD CREATININE BLD Lab 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 Encounter for long-term (current) use of medications Expected: 07/13/2022 (Approximate), Expires: 09/12/2022 [facility] Work Phone: Comment on above: Expected: 07/13/2022 (Approximate), Expi res: 09/12/2022 Start: 07-13-2022 End: 09-12-2022 Erythrocyte sedimentation rate SED RATE WESTERGREN Lab 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 Encounter for long-term (current) use of medications Expected: 07/13/2022 (Approximate), Expires: 09/12/2022 [facility] Work Phone: Comment on above: Expected: 07/13/2022 (Approximate), Expi res: 09/12/2022 Start: 07-13-2022 End: 09-12-2022 Urate [Mass/volume] in Serum or Plasma URIC ACID BLOOD Lab 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 Encounter for long-term (current) use of medications Expected: 07/13/2022 (Approximate), Expires: 09/12/2022 [facility] Work Phone: Comment on above: Expected: 07/13/2022 (Approximate), Expi res: 09/12/2022 Start: 04-23-2022 SERUM CREATININE SERUM CREATININE [facility] Start: 03-01-2022 DEPRESSION ASSESSMENT DEPRESSION ASSESSMENT [facility] Start: 12-10-2021 [facility] Start: 12-07-2021 Hospital admission [facility] Start: 12-07-2021 Referral to Kiln Worker [facility] Start: 10-30-2021 Influenza vaccination [facility] Start: 08-19-2021 Adult depression screening assessment DEPRESSION SCREENING [facility] Start: 03-01-2021 DEPRESSION ASSESSMENT DEPRESSION ASSESSMENT [facility] Start: 2009 Hepatitis B Vaccine (1 of 3 - 19+ 3-dose series) Hepatitis B Vaccine (1 of 3 - 19+ 3-dose series) [facility] Start: 02-26-2008 ANNUAL PCP TEAM CHRONIC DISEASE VISIT ANNUAL PCP TEAM CHRONIC DISEASE VISIT [facility] Start: 02-26-2008 Anxiety Screening Anxiety Screening [facility] Start: 02-26-2008 BP CONTROLLED (<130/80) BP CONTROLLED (<130/80) [facility] Start: 02-26-2008 Depression Screening Depression Screening [facility] Start: 02-26-2008 HIV SCREENING HIV SCREENING [facility] Start: 02-26-2008 HIV screening HIV Screening [facility] Start: 1995 COVID-19 VACCINE (#1) COVID-19 VACCINE (#1) [facility] Start: 1990 COVID-19 VACCINE (#1) COVID-19 VACCINE (#1) [facility] Start: 1990 HEPATITIS B (1 of 3 - 3-dose series) HEPATITIS B (1 of 3 - 3-dose series) [facility] Start: 1990 Hepatitis B Vaccine (1 of 3 - 3-dose series) Hepatitis B Vaccine (1 of 3 - 3-dose series) [facility] End: 06-23-2024 Alanine aminotransferase [Enzymatic activity/volume] in Serum or Plasma ALANINE AMINOTRANSFERASE / SGPT Lab Routine Chronic tophaceous gout Encounter for long-term (current) use of medications Every 3 months for 5 Occurrences starting 06/24/2023 until 06/23/2024 [facility] Comment on above: Every 3 months for 5 Occurrences startin g 06/24/2023 until 06/23/2024 End: 06-23-2024 Albumin [Mass/volume] in Serum or Plasma ALBUMIN Lab Routine Chronic tophaceous gout Encounter for long-term (current) use of medications Every 3 months for 5 Occurrences starting 06/24/2023 until 06/23/2024 [facility] Comment on above: Every 3 months for 5 Occurrences startin g 06/24/2023 until 06/23/2024 End: 06-23-2024 Aspartate aminotransferase [Enzymatic activity/volume] in Serum or Plasma ASPARTATE AMINOTRANSFERASE/SGOT Lab Routine Chronic tophaceous gout Encounter for long-term (current) use of medications Every 3 months for 5 Occurrences starting 06/24/2023 until 06/23/2024 [facility] Work Phone: Comment on above: Every 3 months for 5 Occurrences startin g 06/24/2023 until 06/23/2024 End: 06-23-2024 C reactive protein [Mass/volume] in Serum or Plasma C-REACTIVE PROTEIN Lab Routine Chronic tophaceous gout Encounter for long-term (current) use of medications Every 3 months for 5 Occurrences starting 06/24/2023 until 06/23/2024 [facility] Comment on above: Every 3 months for 5 Occurrences startin g 06/24/2023 until 06/23/2024 End: 06-23-2024 CBC W Auto Differential panel - Blood COMPLETE BLOOD COUNT AND DIFFERENTIAL Lab Routine Chronic tophaceous gout Encounter for long-term (current) use of medications Every 3 months for 5 Occurrences starting 06/24/2023 until 06/23/2024 [facility] Comment on above: Every 3 months for 5 Occurrences startin g 06/24/2023 until 06/23/2024 End: 06-23-2024 CREATININE BLD CREATININE BLD Lab Routine Chronic tophaceous gout Encounter for long-term (current) use of medications Every 3 months for 5 Occurrences starting 06/24/2023 until 06/23/2024 [facility] Comment on above: Every 3 months for 5 Occurrences startin g 06/24/2023 until 06/23/2024 End: 06-23-2024 Erythrocyte sedimentation rate SEDIMENTATION RATE, WESTERGREN Lab Routine Chronic tophaceous gout Encounter for long-term (current) use of medications Every 3 months for 5 Occurrences starting 06/24/2023 until 06/23/2024 [facility] Comment on above: Every 3 months for 5 Occurrences startin g 06/24/2023 until 06/23/2024 Patient Education [facility] Work Phone: Patient referral [facility] Work Phone: End: 06-23-2024 Urate [Mass/volume] in Serum or Plasma URIC ACID Lab Routine Chronic tophaceous gout Encounter for long-term (current) use of medications Every 6 months for 3 Occurrences starting 06/24/2023 until 06/23/2024 [facility] Comment on above: Every 6 months for 3 Occurrences startin g 06/24/2023 until 06/23/2024 End: 02-02-2025 XR Foot - bilateral AP and Lateral and oblique XR FOOT GENERAL 3V AP/LAT/OBL BILATERAL Radiology Routine Chronic tophaceous gout Encounter for long-term (current) use of medications 1 Occurrences starting 01/04/2024 until 02/02/2025 [facility] Work Phone: Comment on above: 1 Occurrences starting 01/04/2024 until 02/02/2025 XR Foot - bilateral AP and Lateral and oblique XR FOOT GENERAL 3V AP/LAT/OBL BILATERAL Radiology Routine Chronic tophaceous gout Encounter for long-term (current) use of medications 01/04/2024 9:48 AM EST [facility] Immunizations Immunization Date Immunization Notes Care Provider [facility] 10-13-2018 influenza virus vacc ine, unspecified formulation Delmy Boyle MD Work Phone: [facility] 10-13-2002 measles, mumps and rubella virus vaccine Leydi Aceves MD Work Phone: [facility] 10-20-1993 diphtheria, tetanus toxoids and acellular pertussis vaccine, unspecified formulation Leydi Aceves MD Work Phone: [facility] 10-20-1993 haemophilus influenz ae type b vaccine, conjugate unspecified formulation Leydi Aceves MD Work Phone: [facility] 10-20-1993 trivalent poliovirus vaccine, live, oral Leydi Aceves MD Work Phone: [facility] 07-26-1991 diphtheria, tetanus toxoids and pertussis vaccine Leydi Aceves MD Work Phone: [facility] 07-26-1991 haemophilus influenz ae type b vaccine, conjugate unspecified formulation Leydi Aceves MD Work Phone: [facility] 07-26-1991 measles, mumps and rubella virus vaccine Leydi Aceves MD Work Phone: [facility] 02-03-1991 diphtheria, tetanus toxoids and pertussis vaccine Leydi Aceves MD Work Phone: [facility] 02-03-1991 haemophilus influenz ae type b vaccine, conjugate unspecified formulation Leydi Aceves MD Work Phone: [facility] 02-03-1991 trivalent poliovirus vaccine, live, oral Leydi Aceves MD Work Phone: [facility] 1990 diphtheria, tetanus toxoids and pertussis vaccine Leydi Aceves MD Work Phone: [facility] 1990 haemophilus influenz ae type b vaccine, conjugate unspecified formulation Leydi Aceves MD Work Phone: [facility] 1990 trivalent poliovirus vaccine, live, oral Leydi Aceves MD Work Phone: [facility] Payers Date Payer Category Payer Self-pay 2022 [facility] Insurance [facility] [id number] 2021 Medicaid [facility] MEDICAID [id number] 2021-Present [phone] [address] [place] [address] Medicaid [id number] 2021 Medicaid [id number] 2018 Unknown [id number] 1990 Unknown [id number] 2.16.840.1.441567.3.579.2. 173 1990 Unknown [id number] 2.16.840.1.882013.3.579.2. 593 1990 Unknown [id number] 2.16.840.1.647371.3.579.2. 593 1990 Unknown [id number] 2.16.840.1.188478.3.579.2. 593 1990 Unknown [id number] 2.16.840.1.877467.3.579.2. 593 1990 Unknown [id number] 2.16.840.1.302896.3.579.2. 593 1990 Unknown [id number] 2.16.840.1.964410.3.579.2. 593 1990 Unknown [id number] 2.16.840.1.459303.3.579.2. 593 1990 Unknown [id number] 2.16.840.1.984103.3.579.2. 593 1990 Unknown [id number] 2.16.840.1.045852.3.579.2. 593 1990 Unknown [id number] 2.16.840.1.240171.3.579.2. 593 1990 Unknown [id number] 2.16.840.1.125117.3.579.2. 727 1990 Unknown [id number] 2.16.840.1.960855.3.579.2. 1259 1990 Unknown [id number] 2.16.840.1.554766.3.579.2. 9 1990 Unknown [id number] 2.16.840.1.527387.3.579.2. 1258 1990 Unknown [id number] 2.16.840.1.679425.3.579.2. 1258 1990 Unknown [id number] 2.16.840.1.473138.3.579.2. 1259 1959 Medicaid [id number] 1959 Unknown [id number] Unknown [facility] [id number] Unknown [id number] 2.16.840.1.151365.3.579.2. 531 Unknown [id number] 2.16.840.1.455626.3.579.2. 531 Social History Date Type Detail Facility Start: 05-04-2017 End: 01-01-2022 Tobacco smoking status TXIS Never smoked tobacco [facility] Start: 05-04-2017 End: 01-11-2024 Tobacco use and exposure User of smokeless tobacco [facility] History of tobacco use Chews Tobacco [facility] Start: 1990 Sex Assigned At Male [facility] Start: 12-08-2021 Tobacco smoking status NHIS Smoker (finding) [facility] Start: 12-22-2021 End: 01-01-2022 Exposure to SARS-CoV-2 (event) Not sure [facility] Start: 08-14-2022 End: 10-10-2023 History of Social function [facility] Start: 08-14-2022 End: 10-10-2023 Tobacco use panel [facility] Adult Depression Screening Assessment 4 [facility] Start: 11-09-2019 Gender identity Identifies as male gender (finding) [facility] Start: 11-09-2019 Sexual orientation Heterosexual (finding) [facility] Start: 09-14-2022 Tobacco use and exposure Smokeless tobacco non-user [facility] Start: 02-16-2023 End: 05-18-2024 Alcohol intake Current drinker of alcohol (finding) [facility] Within the last year , have you been afraid of your partner or ex-partner? No [facility] Do you belong to any clubs or organizations such as religious groups, unions, fraNerveda or athletic groups, or school groups? Yes [...] Start: 02-26-2008 End: 01-11-2024 Tobacco smoking status TXIS Smokes tobacco daily [facility] Are you [...] 02-26-2008 History of tobacco use Cigarette Smoker [facility] Goals Date Patient Goal Desired Activity /State Functional Status Date Assessment Result Facility 12-10-2021 Functional status Patient at Baseline [facility] Work Phone: 12-07-2021 Functional status Disability Sta tus Patient at Baseline [facility] Work Phone: Mental Status Date Assessment Result Facility 12-10-2021 Cognitive function Cognitive Sta tus Patient at Baseline [facility] Work Phone: Clinical Notes 04-25-2017 to 07-26-2024 Telephone Encounter - ISIS Vera - 07/26/2024 9:35 AM EDTTelephone Encounter - ISIS Vera - 07/26/2024 9:35 AM EDTTelephone Encounter - ISIS Vera - 07/26/2024 9:33 AM EDT Note Date & Type Note Facility 07-26-2024 Telephone encounter Note Tramadol already sent. [facility] 07-26-2024 Miscellaneous Notes Tramadol already sent. documented in this encounter [facility] 07-26-2024 Telephone encounter Note OARRS reviewed, Rx sent into patient's pharmacy. [facility] 07-26-2024 Miscellaneous Notes OARRS reviewed, Rx sent into patient's pharmacy. documented in this encounter [facility] 07-11-2024 Telephone encounter Note No longer filling the Elvaston for pt, he has been tapered off. He can take Tramadol as needed for pain. [facility] 07-11-2024 Miscellaneous Notes No longer filling the Elvaston for pt, he has been tapered off. He can take Tramadol as needed for pain. Last OV 3-20-25 Refill 5-925 documented in this encounter [facility] 07-11-2024 Telephone encounter Note Last OV 3-20-25 Refill 5-925 [facility] 07-07-2024 Telephone encounter Note OARRS reviewed, Rx sent into patient's pharmacy. [facility] 07-07-2024 Miscellaneous Notes OARRS reviewed, Rx sent into patient's pharmacy. Last OV 3-2025 Last refill 5-5-25 documented in this encounter [facility] 07-07-2024 Telephone encounter Note Last OV 3-20-25 Last refill 5-5-25 [facility] 07-03-2024 Telephone encounter Note Sent in a lower dosing frequency. [facility] 07-03-2024 Miscellaneous Notes Sent in a lower dosing frequency. documented in this encounter [facility] 06-28-2024 Telephone encounter Note OARRS reviewed, Rx sent into patient's pharmacy. [facility] 06-28-2024 Miscellaneous Notes OARRS reviewed, Rx sent into patient's pharmacy. documented in this encounter [facility] 06-27-2024 Telephone encounter Note Already addressed, [facility] 06-27-2024 Miscellaneous Notes Already addressed, HYDROcodone-acetaminophen (Elvaston) 5-325 [address] tablet [facility] documented in this encounter [facility] 06-27-2024 Telephone encounter Note Currently on medrol [facility] 06-27-2024 Miscellaneous Notes Currently on medrol documented in this encounter [facility] 06-26-2024 Telephone encounter Note HYDROcodone-acetaminophen (Elvaston) 5-325 MG tablet [facility] 06-19-2024 Telephone encounter Note OARRS reviewed, Rx sent into patient's pharmacy. [facility] 06-19-2024 Miscellaneous Notes OARRS reviewed, Rx sent into patient's pharmacy. documented in this encounter [facility] 06-12-2024 Telephone encounter Note OARRS reviewed, Rx sent into patient's pharmacy. [facility] 06-12-2024 Miscellaneous Notes OARRS reviewed, Rx sent into patient's pharmacy. documented in this encounter [facility] 06-05-2024 Telephone encounter Note OARRS reviewed, Rx sent into patient's pharmacy. [facility] 06-05-2024 Miscellaneous Notes OARRS reviewed, Rx sent into patient's pharmacy. documented in this encounter [facility] 05-29-2024 Telephone encounter Note OARRS reviewed, Rx sent into patient's pharmacy. [facility] 05-29-2024 Miscellaneous Notes OARRS reviewed, Rx sent into patient's pharmacy. Last OV 05-18-24 Last refill 05-23-24 documented in this encounter [facility] 05-29-2024 Telephone encounter Note Last OV 05-18-24 Last refill 05-23-24 [facility] 05-11-2024 Telephone encounter Note OARRS reviewed, Rx sent into patient's pharmacy. [facility] 05-11-2024 Miscellaneous Notes OARRS reviewed, Rx sent into patient's pharmacy. Pt called asking for hydrocodone to be sent in I'm not seeing this on his med list documented in this encounter [facility] 05-11-2024 Telephone encounter Note Pt called asking for hydrocodone to be sent in I'm not seeing this on his med list [facility] 04-25-2024 Telephone encounter Note OARRS reviewed, Rx sent into patient's pharmacy. [facility] 04-25-2024 Miscellaneous Notes OARRS reviewed, Rx sent into patient's pharmacy. documented in this encounter [facility] 04-20-2024 History of Present illness Narrative Images from the original note were not included. HPI Med Refill Additional comments: Oxycodone for a few days Last edited by Cristal Ojeda LPN on 04/20/2024 10:02 AM. Subjective Patient ID: Nick Wray is a 34 y.o. male who presents for [facility] ER follow up. Flowsheet Row Patient Outreach from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 [address] Referral ID Status Reason Start Date Expiration Date V isits Requested Visits Authorized [id number] Closed Auto-Generate d Referral 01/04/2024 02/02/2025 1 1 Additional Source Comments (unrecognized sect ion and content) No Status Records FoundNo Status Records FoundNo Status Records FoundNo Status Records FoundNo Status Records FoundNo Status Records FoundNo Status Records FoundNo Status Records FoundNo Status Records Found INFORMATION SOURCE (unrecogn ized section and content) DATE CREATED AUTHOR [facility] DATE CREATED AUTHOR AUTHOR'S ORGANIZ ATION 11/11/2021 [facility] DATE CREATED AUTHOR AUTHOR'S ORGANIZ ATION 08/07/2022 [facility] DATE CREATED AUTHOR AUTHOR'S ORGANIZ ATION 2023 [facility] DATE CREATED AUTHOR AUTHOR'S ORGANIZ ATION 02/26/2023 [facility] DATE CREATED AUTHOR AUTHOR'S ORGANIZ ATION 09/13/2023 [facility] DATE CREATED AUTHOR AUTHOR'S ORGANIZ ATION 01/05/2024 [facility] DATE CREATED AUTHOR AUTHOR'S ORGANIZ ATION 01/08/2024 [facility] DATE CREATED AUTHOR AUTHOR'S ORGANIZ ATION 05/20/2024 [facility] d[facility] Specialists EPIC Source Comments (unrecognize d section and content) In the event this informatio n is protected by the Federal Confidentiality of Alcohol and Drug Abuse Patient Records regulations: The Federal rules restrict any use of the information to criminally investigate or prosecute any alcohol or drug abuse patient.[facility] the event this information is protected by the Federal Confidentiality of Alcohol and Drug Abuse Patient Records regulations: The Federal rules restrict any use of the information to criminally investigate or prosecute any alcohol or drug abuse patient.[facility] HospitalIn the event this information is protected by the Federal Confidentiality of Alcohol and Drug Abuse Patient Records regulations: The Federal rules restrict any use of the information to criminally investigate or prosecute any alcohol or drug abuse patient.[facility] Hospital[facility] the event this information is protected by the Federal Confidentiality of Alcohol and Drug Abuse Patient Records regulations: The Federal rules restrict any use of the information to criminally investigate or prosecute any alcohol or drug abuse patient.[facility] HospitalIn the event this information is protected by the Federal Confidentiality of Alcohol and Drug Abuse Patient Records regulations: The Federal rules restrict any use of the information to criminally investigate or prosecute any alcohol or drug abuse patient.[facility] HospitalIn the event this information is protected by the Federal Confidentiality of Alcohol and Drug Abuse Patient Records regulations: The Federal rules restrict any use of the information to criminally investigate or prosecute any alcohol or drug abuse patient.[facility] HospitalIn the event this information is protected by the Federal Confidentiality of Alcohol and Drug Abuse Patient Records regulations: The Federal rules restrict any use of the information to criminally investigate or prosecute any alcohol or drug abuse patient.[facility] HospitalIn the event this information is protected by the Federal Confidentiality of Alcohol and Drug Abuse Patient Records regulations: The Federal rules restrict any use of the information to criminally investigate or prosecute any alcohol or drug abuse patient.[facility] HospitalIn the event this information is protected by the Federal Confidentiality of Alcohol and Drug Abuse Patient Records regulations: The Federal rules restrict any use of the information to criminally investigate or prosecute any alcohol or drug abuse patient.[facility] HospitalIn the event this information is protected by the Federal Confidentiality of Alcohol and Drug Abuse Patient Records regulations: The Federal rules restrict any use of the information to criminally investigate or prosecute any alcohol or drug abuse patient.[facility] HospitalIn the event this information is protected by the Federal Confidentiality of Alcohol and Drug Abuse Patient Records regulations: The Federal rules restrict any use of the information to criminally investigate or prosecute any alcohol or drug abuse patient.[facility] HospitalIn the event this information is protected [...] or prosecute any alcohol or drug abuse patient.[facility] HospitalIn the event this information is protected by the Federal Confidentiality of Alcohol and Drug Abuse Patient Records regulations: The Federal rules restrict any use of the information to criminally investigate or prosecute any alcohol or drug abuse patient.[facility] HospitalIn the event this information is protected by the Federal Confidentiality of Alcohol and Drug Abuse Patient Records regulations: The Federal rules restrict any use of the information to criminally investigate or prosecute any alcohol or drug abuse patient.[facility] Care Teams (unrecognized sec tion and [...] August 22, 2023 End: August 22, 2023 Pulp Cooker Relationship Specialty Start Date End Date Ketan Leydi Temple PCP - General Family Practice 01/07/15 Team Status: Inactive Member Role Status Dates Leydi Aceves MD Primary Care Provider Active Juvenal Smith MD Emergency Provider Active Team Status: Inactive Member Role Status Dates Leydi Aceves MD Primary Care Provider Active Adam Young MD Admit Provider, Attending Provider Active Pulp Cooker Relationship Specialty Start Date End Date Ketan Leydi Temple PCP - General Family Medicine 01/07/15 Pulp Cooker Relationship Specialty Start Date End Date Leydi Aceves PCP - General Family Medicine 01/07/15 Pulp Cooker Relationship Specialty Start Date End Date Leydi Aceves PCP - General Family Medicine 01/07/15 Pulp Cooker Relationship Specialty Start Date End Date Leydi Aceves PCP - General Family Medicine 01/07/15 Pulp Cooker Relationship Specialty Start Date End Date Leydi Aceves MD PCP - General Family Medicine 01/07/15 Pulp Cooker Relationship Specialty Start Date End Date Leydi Aceves MD PCP - General Family Medicine 01/07/15 Pulp Cooker Relationship Specialty Start Date End Date Leydi Aceves MD [address] [facility] [address] [place] [address] PCP - General Family Medicine 07/29/22 Leydi Aceves MD [address] [place] [address] PCP - [facility] 05/30/22 Pulp Cooker Relationship Specialty Start Date End Date Leydi Aceves MD [address] [place] [address] PCP - General Family [facility] 07/29/22 Leydi Aceves MD [address] [place] [address] PCP - [facility] 05/30/22 Pulp Cooker Relationship Specialty Start Date End Date Leydi Aceves MD PCP - General Family Medicine 01/07/15 Pulp Cooker Relationship Specialty Start Date End Date Leydi Aceves MD PCP - General Family Medicine 01/07/15 Pulp Cooker Relationship Specialty Start Date End Date Leydi Aceves MD PCP - General Family Medicine 01/07/15 Pulp Cooker Relationship Specialty Start Date End Date Leydi Aceves MD [address] [place] [address] PCP - General Family [facility] 07/29/22 Leydi Aceves MD [address] [place] [address] PCP - [facility] 05/30/22 Grady, Alma, BONDING AGENT [address] [place] [address] Licensed Practical Nurse Family Medicine 06/04/23 Pulp Cooker Relationship Specialty Start Date End Date Leydi Aceves MD [address] [place] [address] PCP - General Family Medicine 07/29/22 Leydi Aceves MD [address] [place] [address] PCP - [facility] 05/30/22Wednesday, Alma, BONDING AGENT [address] [place] [address] Licensed Practical Nurse Family Medicine 06/04/23 Pulp Cooker Relationship Specialty Start Date End Date Leydi Aceves MD [address] [place] [address] PCP - General Family Medicine 07/29/22 Leydi Aceves MD [address] [place] [address] [facility] 05/30/22Wednesday, Alma, BONDING AGENT [address] [place] [address] Licensed Practical Nurse Family Medicine 06/04/23 Pulp Cooker Relationship Specialty Start Date End Date Leydi Aceves MD PCP - General Family Medicine 01/07/15 Pulp Cooker Relationship Specialty Start Date End Date Leydi Aceves MD PCP - General Family Medicine 01/07/15 Pulp Cooker Relationship Specialty Start Date End Date Leydi Aceves MD PCP - General Family [facility] 01/07/15 Pulp Cooker Relationship Specialty Start Date End Date Leydi Aceves MD [address] [place] [address] PCP - [facility] 07/29/22 Leydi Aceves MD [address] [place] [address] PCP [facility] 05/30/22Wednesday, Alma, BONDING AGENT [address] [place] [address] Licensed Practical Nurse Family Medicine 06/04/23 Pulp Cooker Relationship Specialty Start Date End Date Leydi Aceves MD [address] [place] [address] PCP - [facility] 07/29/22 Leydi Aceves MD [address] [place] [address] [facility] 05/30/22Wednesday, Alma, BONDING AGENT [address] [place] [address] Licensed Practical Nurse Family Medicine 06/04/23 Pulp Cooker Relationship Specialty Start Date End Date Leydi Aceves MD [address] [place] [address] PCP - [facility] Family [facility] 07/29/22 Leydi Aceves MD [address] [place] [address] PCP [facility] 05/30/22Wednesday, Alma, BONDING AGENT [address] [place] [address] Licensed Practical Nurse Family Medicine 06/04/23 Pulp Cooker Relationship Specialty Start Date End Date Leydi Aceves MD [address] [place] [address] PCP - General Family [facility] 07/29/22 Leydi Aceves MD [address] [place] [address] PCP [facility] 05/30/22Wednesday, Alma, BONDING AGENT [address] [place] [address] Licensed Practical Nurse Family Medicine 06/04/23 Pulp Cooker Relationship Specialty Start Date End Date Leydi Aceves MD [address] [place] [address] PCP - General [facility] 07/29/22 Leydi Aceves MD [address] [place] [address] PCP [facility] 05/30/22Wednesday, Alma, BONDING AGENT [address] [place] [address] Licensed Practical Nurse Family Medicine 06/04/23 Pulp Cooker Relationship Specialty Start Date End Date Leydi Aceves MD [address] [place] [address] PCP - General [facility] 07/29/22 Leydi Aceves MD [address] [place] [address] PCP [facility] 05/30/22Wednesday, BREE Marquez [address] [place] [address] Licensed Practical Nurse Family Medicine 06/04/23 Pulp Cooker Relationship Specialty Start Date End Date Leydi Aceves MD [address] [place] [address] PCP - General Family [facility] 07/29/22 Leydi Aceves MD [address] [place] [address] PCP [facility] 05/30/22Wednesday, BREE Marquez [address] [place] [address] Licensed Practical Nurse Family Medicine 06/04/23 Pulp Cooker Relationship Specialty Start Date End Date Leydi Aceves MD [address] [place] [address] PCP - General Family Medicine 07/29/22 Leydi Aceves MD [address] [place] [address] PCP [facility] 05/30/22 Jayne Del Valle RN Licensed Practical Nurse Family Medicine 04/07/24 Pulp Cooker Relationship Specialty Start Date End Date Leydi Aceves MD [address] [place] [address] PCP - General Family Medicine 07/29/22 Leydi Aceves MD [address] [place] [address] PCP [facility] 05/30/22 Jayne Del Valle RN Licensed Practical Nurse Family Medicine 04/07/24 Pulp Cooker Relationship Specialty Start Date End Date Leydi Aceves MD [address] [place] [address] PCP - General Family Medicine 07/29/22 Leydi Aceves MD [address] [place] [address] PCP - [facility] 05/30/22 Jayne Del Valle, DELMIS Licensed Practical Nurse Family Medicine 04/07/24 Pulp Cooker Relationship Specialty Start Date End Date Leydi Aceves MD [address] [place] [address] PCP - [facility] 07/29/22 Leydi Aceves MD [address] [place] [address] PCP - [facility] 05/30/22 Jayne Del Valle, DELMIS Licensed Practical Nurse Family Medicine 04/07/24 Pulp Cooker Relationship Specialty Start Date End Date Leydi Aceves MD [address] [place] [address] PCP - General [facility] 07/29/22 Leydi Aceves MD [address] [place] [address] PCP [facility] 05/30/22 Jayne Del Valle, DELMIS Licensed Practical Nurse Family Medicine 04/07/24 Pulp Cooker Relationship Specialty Start Date End Date Leydi Aceves MD [address] [place] [address] PCP - General Family Medicine 07/29/22 Leydi Aceves MD [address] [place] [address] PCP - [facility] 05/30/22 Merry Paz LPN 05/19/24 Pulp Cooker Relationship Specialty Start Date End Date Leydi Aceves MD [address] [place] [address] PCP - [facility] 07/29/22 Leydi Aceves MD [address] [place] [address] PCP - [facility] 05/30/22 Merry Paz BONDING AGENT 05/19/24 Pulp Cooker Relationship Specialty Start Date End Date Leydi Aceves MD [address] [place] [address] PCP - [facility] 07/29/22 Leydi Aceves MD [address] [place] [address] PCP - [facility] 05/30/22 Merry Paz [facility] 05/19/24 Pulp Cooker Relationship Specialty Start Date End Date Leydi Acvees MD [address] [place] [address] PCP - [facility] 07/29/22 Leydi Aceves MD [address] [place] [address] PCP - [facility] 05/30/22 Merry Paz LPN 05/19/24 Pulp Cooker Relationship Specialty Start Date End Date Leydi Aceves MD [address] [facility] [address] [place] [address] PCP - [facility] 07/29/22 Leydi Aceves MD [address] [facility] [address] [place] [address] PCP - [facility] 05/30/22 Merry Paz LPN 05/19/24 Pulp Cooker Relationship Specialty Start Date End Date Leydi Aceves MD [address] [facility] [address] [place] [address] PCP - [facility] 07/29/22 Leydi Aceves MD [address] [facility] [address] [place] [address] PCP - [facility] 05/30/22 Merry Paz BONDING AGENT 05/19/24 Goals (unrecognized section and content) Goals [...] KNEE COMPLETE 4/[place] [address] [place] [address] [facility] [address] Referral ID Status Reason Start Date Expiration Date V isits Requested Visits Authorized [id number] Closed Auto-Generate d Referral 01/04/2024 02/02/2025 1 [...] BE BASED ON THE PRIMARY CLINICAL RECORDS. [employer] provides no warranty or guarantee of the accuracy or completeness of information in this document.
[2024-07-29 23:43] VITALS: BP 146/82; PULSE 91; TEMP 36.8; O2SAT 94; BMI 60.0
--- NOTE | 2024-07-30 00:12 | PC.NURSE ---
Visible swelling in bilateral knees, elbows, and knuckles of fingers. patient has bandages on both big toes stating he had ingrown toenails removed recently.
[2024-07-30] MEDS: GABAPENTIN 300 MG CAPSULE PO ×4 (00:16→21:36)
[2024-07-30] MEDS: 0.9 % SODIUM CHLORIDE 1,000 ML 100 ML IV ×3 (00:16→21:36)
[2024-07-30] MEDS: AMLODIPINE BESYLATE 5 MG TABLET 10 MG PO ×2 (00:16→09:04)
[2024-07-30] MEDS: HYDROMORPHONE HCL 1 MG/ML CARTRIDGE 0.5 MG IVP (00:23)
[2024-07-30 04:16] VITALS: BP 135/77; PULSE 91; TEMP 36.4; O2SAT 92
[2024-07-30] MEDS: OXYCODONE HCL/ACETAMINOPHEN 5MG/325MG 2 TAB PO ×4 (04:23→19:03)
[2024-07-30 06:43] LABS: Hematocrit 36.3 % (42.0-54.0); Hemoglobin 12.6 g/dL (14.0-18.0); Mean Corpuscular HGB Conc 34.7 g/dL (29.9-35.2); Mean Corpuscular Hemoglobin 30.4 pg (25.9-34.0); Mean Corpuscular Volume 87.7 fL (80.0-94.0); Mean Platelet Volume 11.5 fL (9.5-13.5); Platelet Count 208 10^3/uL (150-450); Red Blood Count 4.14 10^6/uL (4.70-6.10); Red Cell Distribution Width 13.2 % (11.0-15.0); White Blood Count 10.7 10^3/uL (4.0-11.0)
[2024-07-30 06:59] LABS: Alanine Aminotransferase 35 U/L (16-63); Albumin Globulin Ratio 0.8; Albumin Level 2.9 g/dL (3.4-5.0); Alkaline Phosphatase 91 U/L (46-116); Anion Gap 14.1; Aspartate Amino Transferase 33 U/L (15-37); BUN Creatinine Ratio 13.6; Bilirubin Total 0.6 mg/dL (0.2-1.0); Calcium 9.1 mg/dL (8.5-10.1); Carbon Dioxide 26.9 mmol/L (21.0-32.0); Chloride 100 mmol/L (98-107); Estimated GFR (African America >60 (>=60 mL/min/1.73m^2); Estimated GFR (Non-African Ame >60 (>=60 mL/min/1.73m^2); Globulin 3.8 g/dL; Glucose 259 mg/dL (74-106); Sodium 137 mmol/L (136-145); Total Protein 6.7 g/dL (6.4-8.2)
[2024-07-30 07:03] LABS: Band Neutrophils Absolute 0.3 10^3/uL (0.0-0.3); Monocytes Absolute Manual 0.21 10^3/uL (0.30-0.80); Segmented Neut Absolute Manual 10.05 10^3/uL (1.4-6.5)
[2024-07-30 08:58] VITALS: BP 141/76; PULSE 86; TEMP 36.5; O2SAT 92
[2024-07-30] MEDS: CLONIDINE HCL 0.1 MG TABLET PO ×2 (09:04→21:36)
[2024-07-30] MEDS: KETOROLAC TROMETHAMINE 30 MG/ML VIAL IVP ×3 (09:19→21:36)
[2024-07-30] MEDS: DEXAMETHASONE SOD PHOS 10 MG/ML VIAL IV (09:19)
--- NOTE | 2024-07-30 10:30 | P.HP_ITS ---
HPI H&P: HPI History of Present Illness Chief complaint: Polyarthritis intractable pain gout Narrative: Patient with a history of rheumatoid arthritis was treated as an outpatient with Medrol Dosepak without any success, presented emergency room with very difficulty walking and seems to be more his knees and elbows this time, uric acid is elevated but his having no pain in his feet or ankles Opioid HPI Opioid Management Most Recent Pain and Opioid Data: Last Pain Scale 5 Today, 11:00 Last Pain Assessment Today, 00:29 Last ED Pain Assessment 07/29/24, 20:28 Last MAR Pain Assessment 07/29/24, 21:20 Last ORT Total Score 4 07/29/24, 23:43 Last ORT Risk Category Moderate Risk 07/29/24, 23:43 Ur Phencyclidine Scrn, (NEGATIVE) Negative , 22:15 Review of Systems ROS Status of ROS 10 or more systems reviewed and unremark able except as noted in history and below PFSH PFSH Medical History Acute hypernatremia ?E87.0 - Hyperosmolality and hypernatremia (ICD-10) Altered mental status ?R41.82 - Altered mental status, unspecified (ICD-10) Sepsis ?A41.9 - Sepsis, unspecified organism (ICD-10) Acute kidney injury ?N17.9 - Acute kidney failure, unspecified (ICD-10) MONO (generalized anxiety disorder) ?F41.1 - Generalized anxiety disorder (ICD-10) Rheumatoid arthritis ?M06.9 - Rheumatoid arthritis, unspecified (ICD-10) Benign essential hypertension ?I10 - Essential (primary) hypertension (ICD-10) Gouty arthritis ?M10.9 - Gout, unspecified (ICD-10) Acute postoperative pain of knee ?G89.18 - Other acute postprocedural pain (ICD-10) ?M25.569 - Pain in unspecified knee (ICD-10) Visit for wound check ?Z51.89 - Encounter for other specified aftercare (ICD-10) Septic prepatellar bursitis of right knee ?M71.161 - Other infective bursitis, right knee (ICD-10) Acute viral syndrome ?B34.9 - Viral infection, unspecified (ICD-10) Diarrhea ?R19.7 - Diarrhea, unspecified (ICD-10) Rheumatoid arthritis flare ?M06.9 - Rheumatoid arthritis, unspecified (ICD-10) Polyarthralgia ?M25.50 - Pain in unspecified joint (ICD-10) Rheumatoid arthritis flare ?M06.9 - Rheumatoid arthritis, unspecified (ICD-10) Weakness ?R53.1 - Weakness (ICD-10) Mild shortness of breath ?R06.02 - Shortness of breath (ICD-10) Headache ?R51.9 - Headache, unspecified (ICD-10) Polyarthralgia ?M25.50 - Pain in unspecified joint (ICD-10) Flare of rheumatoid arthritis ?M06.9 - Rheumatoid arthritis, unspecified (ICD-10) Arthralgia ?M25.50 - Pain in unspecified joint (ICD-10) Drug-seeking behavior ?Z76.5 - Malingerer [conscious simulation] (ICD-10) Surgical History Total knee replacement status ?Z96.659 - Presence of unspecified artificial knee joint (ICD-10) H/O shoulder surgery ?Z98.890 - Other specified postprocedural states (ICD-10) Family History (Updated 07/29/24 @ 23:56 by Kyra Vega RN) Father Family history of hypertension Social History (Updated 07/29/24 @ 23:57 by Kyra Vega RN) Within the past year, how often did you have a drink containing alcohol: monthly or less Smoking status: Never smoker Nicotine containing products detail: chew tobacco Non-prescribed substance use: denies use Known occupational exposures/hazards: No Highest level of school completed/degree received: Associate degree: academic program Are you now , , , , never or living with a partner: In a typical week, how many times do you talk on the telephone with family, friends, or neighbors: 3 or more times per week How often do you get together with friends or relatives: 3 or more times per week Little interest or pleasure in doing things: not at all Feeling down, depressed, or hopeless: not at all Feel stressed/tense/nervous/anxious/difficulty sleeping: decline to answer Do you think of yourself as: straight/heterosexual Gender Identity: male Meds Home Medications and Allergies Home Medications ?Medication ?Instructions ?Recorded ?Confirmed ?Type amlodipine 10 mg tablet 10 mg PO QDAY 08/31/2207/29 History clonidine HCl 0.1 mg tablet 0.1 mg PO BID 08/31/22 History colchicine 0.6 mg tablet 0.6 mg PO .every other 08/3107/29/24 History gabapentin 300 mg capsule 300 mg PO TID 02/15/2307/29 History (Neurontin) allopurinol 300 mg tablet 800 mg PO .evening 06/03/23 07/29/24 History prednisone 10 mg tablet 50 mg (5 x 10 mg) PO DAILY # 47 tabs 07/30/24 Rx tramadol 50 mg tablet 50 mg PO Q12H PRN pain 07/3007/30/24 History Allergies Allergy/AdvReac Type Severity Reaction Status Date / Time No Known Drug Allergies Allergy Verified 07/29/24 20:16 Exam Constitutional Vital Signs, click to edit/add: Last Vital Signs Temp 97.7 F 07/30/24 08:58 Pulse 86 07/30/24 08:58 Resp 16 07/30/24 08:58 BP 141/76 07/30/24 08:58 Pulse Ox 92 L 07/30/24 08:58 O2 Del Method Room Air 07/30/24 08:58 Documenting provider has reviewed patient's vital signs: yes Common normals: apparent distress (Moderate painful distress) Chest Common normals: inspection of chest normal Respiratory Common normals: normal respiratory effort Cardio Common normals: regular rate and regular rhythm GI Common normals: Normal to inspection, nondistended, normoactive bowel sounds present Extremity Common normals: limited ROM (Poor range of motion secondary to pain upper and lower extremities) Results Labs Labs: Short CBC 07/29/24 07/30/24 Range/Units 21:09 05:49 WBC 14.1 H 10.7 (4.0-11.0) 10^3/uL Hgb 14.1 12.6 L (14.0-18.0) g/dL Hct 41.8 L 36.3 L (42.0-54.0) % Plt Count 250 208 (150-450) 10^3/uL BMP 07/29/24 07/30/24 21:09 05:49 Sodium 135 L 137 Potassium 3.6 4.0 Chloride 97 L 100 Carbon Dioxide 26.6 26.9 BUN 9.0 15.0 Creatinine 1.12 1.10 Glucose 112 H 259 H Calcium 9.4 9.1 Liver Function 07/30/24 Range/Units 05:49 Total Bilirubin 0.6 (0.2-1.0) mg/dL AST 33 (15-37) U/L ALT 35 (16-63) U/L Alkaline Phosphatase 91 (46-116) U/L Albumin 2.9 L (3.4-5.0) g/dL Assessment and Plan Assessment and Plan (1) Intractable pain: (2) Polyarthralgia: (3) Rheumatoid arthritis flare: (4) Acute hypernatremia: (5) Hyperglycemia, drug-induced: Plan Admission findings: Low-grade fever 100.1 typical for him when he gets a rheum atoid flare, sinus tachycardia, uncontrolled hypertension, leukocytosis, hyponatremia, hyperglycemia, elevated CRP secondary to acute rheumatoid arthritis flare Acute RA-pain control, narcotics as well as will start patient on Decadron today, Toradol as well [id number], if improved later today possible discharge to home in improving condition. Medications see list. Follow-up with PCP at discharge Hyponatremia likely related to the above and that is returned to normal continue to monitor as an outpatient [id number]-[id number] from the steroids-monitor as an outpatient as it may be an indication of a borderline diabetes mellitus Admission status: Patient initially placed to observation status, requiring IV narcotics, if improved later today possible discharge if does require further hospitalization likely changed to inpatient status as medically necessary treatment will span 2 midnights
--- NOTE | 2024-07-30 10:30 | PM.DS1 ---
DS: Providers Provider Date of admission: 07/29/24 23:34 Primary care physician: LEYDI ACEVES DS: Summary Time Spent with Patient Time attestation: Total time spent providing and/or coordinating discharge services: Exam Constitutional Vital Signs, click to edit/add: Last Vital Signs Temp 97.7 F 07/30/24 08:58 Pulse 86 07/30/24 08:58 Resp 16 07/30/24 08:58 BP 141/76 07/30/24 08:58 Pulse Ox 92 L 07/30/24 08:58 O2 Del Method Room Air 07/30/24 08:58 DS: Data Data Completed and Pending Labs on day of discharge: Labs from last 24 hours 07/30/24 07/29/24 05:49 21:09 WBC 10.7 14.1 H RBC 4.14 L 4.79 Hgb 12.6 L 14.1 Hct 36.3 L 41.8 L MCV 87.7 87.3 MCH 30.4 29.4 MCHC 34.7 33.7 RDW 13.2 13.2 Plt Count 208 250 MPV 11.5 10.6 Neut % (Auto) 85.0 H Lymph % (Auto) 5.1 L Esmeralda % (Auto) 9.3 Eos % (Auto) 0.1 L Baso % (Auto) 0.1 L Neut # (Auto) 12.0 H Lymph # (Auto) 0.7 L Esmeralda # (Auto) 1.3 H Eos # (Auto) 0.0 Baso # (Auto) 0.0 Abs Immat Gran (auto) 0.05 H Seg Neuts % (Manual) 94.0 H Band Neutrophils % 3.0 Lymphocytes % (Manual) 1.0 L Monocytes % (Manual) 2.0 Eosinophils % (Manual) 0.0 L Basophils % (Manual) 0.0 L Imm/Tot Granulo (auto) 0.4 Neutrophils # (Manual) 10.05 H Band Neutrophils # 0.3 Lymphocytes # (Manual) 0.10 L Monocytes # (Manual) 0.21 L Eosinophils # (Manual) 0.00 Basophils # (Manual) 0.00 ESR 72 H Sodium 137 135 L Potassium 4.0 3.6 Chloride 100 97 L Carbon Dioxide 26.9 26.6 Anion Gap 14.1 15.0 BUN 15.0 9.0 Creatinine 1.10 1.12 Est GFR ( Amer) >60 >60 Est GFR (Non-Af Amer) >60 >60 BUN/Creatinine Ratio 13.6 8.0 Glucose 259 H 112 H Lactate 0.9 Uric Acid 10.4 H Calcium 9.1 9.4 Total Bilirubin 0.6 AST 33 ALT 35 Alkaline Phosphatase 91 C-Reactive Protein 34.42 H Total Protein 6.7 Albumin 2.9 L Globulin 3.8 Albumin/Globulin Ratio 0.8 Discharge Plan Discharge Condition: Good Discharge Medications: No Action gabapentin [Neurontin] 300 mg capsule 300 mg PO TID allopurinol 300 mg tablet 800 mg PO .evening colchicine 0.6 mg tablet 0.6 mg PO .every other clonidine HCl 0.1 mg tablet 0.1 mg PO BID amlodipine 10 mg tablet 10 mg PO QDAY tramadol 50 mg tablet 50 mg PO Q12H PRN (Reason: pain) Print Language: Spanish
[2024-07-30 13:48] VITALS: BP 129/73; PULSE 84; TEMP 36.4; O2SAT 91
[2024-07-30] MEDS: HYOSCYAMINE SULFATE 0.125 MG TAB.SUBL SL (15:40)
--- NOTE | 2024-07-30 15:40 | PC.NURSE ---
stool sample collected
[2024-07-30 16:35] LABS: C. Difficile PCR NEGATIVE
[2024-07-30 19:40] VITALS: BP 130/71; PULSE 84; TEMP 36.3; O2SAT 95
--- OUTSIDE RECORDS SUMMARY | 2024-07-30 19:40 | XMS_ITS | Encounter Summary ---
Author Organization [facility] Address [address] [place] [address] Care Team Providers Care Police Radio Dispatcher Name Role Phone Malcolm Cid MD Primary Care Provider +1- [phone] Source Comments In the event this information is protected by the Federal Confidentiality of Alcohol and Drug AbusePatient Records regulations: The Federal rules restrict any use of the information to criminally investigate or prosecute any alcohol or drug abuse patient.[facility] Encounter Details Date Type Department Care Team (Late st Contact Info) Description 02/27/2018 Patient Msg Rheumatology [address] [place] [address] [place] [address] [place], [place] [phone] March lab reminder Social History Tobacco Use [...] 10/03/2024 8:00 AM EDT Office Visit Rheumatology [address] [place] [address] [place] [address] [place] [address] Return in about 9 months (around 10/03/2024). documented as of this encounter Visit Diagnoses Not on filedocumented in this encounter Care Teams Police Radio Dispatcher Relationship Specialty Start Date End Date Malcolm Cid MD PCP - General Family Medicine 01/07/15 documented as of this encounter
--- OUTSIDE RECORDS SUMMARY | 2024-07-30 19:40 | XMS_ITS | Encounter Summary ---
Author Organization [facility] Address [address] [place] [address] Care Team Providers Care Sole Stitcher Hand Name Role Phone Malcolm Cid MD Primary Care Provider +1- [phone] Source Comments In the event this information is protected by the Federal Confidentiality of Alcohol and Drug AbusePatient Records regulations: The Federal rules restrict any use of the information to criminally investigate or prosecute any alcohol or drug abuse patient.[facility] Encounter Details Date Type Department Care Team (Late st Contact Info) Description 07/05/2019 Patient Msg Rheumatology [address] [place] [address] Provider, Ccf Lab reminder from [...] 10/03/2024 8:00 AM EDT Office Visit Rheumatology [address] [place] [address] [place] [address] [place] [address] Return in about 9 months (around 10/03/2024). documented as of this encounter Visit Diagnoses Not on filedocumented in this encounter Care Teams Sole Stitcher Hand Relationship Specialty Start Date End Date Malcolm Cid MD PCP - General Family Medicine 01/07/15 documented as of this encounter
--- OUTSIDE RECORDS SUMMARY | 2024-07-30 19:40 | XMS_ITS | Encounter Summary ---
Author Organization [facility] Address [address] [place] [address] Care Team Providers Care Retirement Specialist Name Role Phone Malcolm Cid MD Primary Care Provider +1- [phone] Source Comments In the event this information is protected by the Federal Confidentiality of Alcohol and Drug AbusePatient Records regulations: The Federal rules restrict any use of the information to criminally investigate or prosecute any alcohol or drug abuse patient.[facility] Encounter Details Date Type Department Care Team (Late st Contact Info) Description 07/29/2018 Patient Msg Rheumatology [address] [place], [place] [id number] [place] [address] [place], [place] [phone] September lab reminder Social History Tobacco Use [...] Assessment Author No 04/26/2017 6:15 PM Oralia uHrtado RN * Are you blind or do [...] 10/03/2024 8:00 AM EDT Office Visit Rheumatology [address] [place] [address] [place] [address] [place] [address] Return in about 9 months (around 10/03/2024). documented as of this encounter Visit Diagnoses Not on filedocumented in this encounter Care Teams Retirement Specialist Relationship Specialty Start Date End Date Maclolm Cid MD PCP - General Family Medicine 01/07/15 documented as of this encounter
--- OUTSIDE RECORDS SUMMARY | 2024-07-30 19:40 | XMS_ITS | Encounter Summary ---
Author Organization [facility] Address [address] [place] [address] Care Team Providers Care Records Supervisor Name Role Phone Malcolm Cid MD Primary Care Provider +1- [phone] Source Comments In the event this information is protected by the Federal Confidentiality of Alcohol and Drug AbusePatient Records regulations: The Federal rules restrict any use of the information to criminally investigate or prosecute any alcohol or drug abuse patient.[facility] Encounter Details Date Type Department Care Team (Late st Contact Info) Description 03/02/2018 Patient Msg Infectious Disease [address] [place], [place] [phone] Provider, Ccf Update rx's information Social History [...] 10/03/2024 8:00 AM EDT Office Visit Rheumatology [address] [place] [address] [place] [address] [place] [address] Return in about 9 months (around 10/03/2024). documented as of this encounter Visit Diagnoses Not on filedocumented in this encounter Care Teams Records Supervisor Relationship Specialty Start Date End Date Malcolm Cid MD PCP - General Family Medicine 01/07/15 documented as of this encounter
--- OUTSIDE RECORDS SUMMARY | 2024-07-30 19:40 | XMS_ITS | Encounter Summary ---
Author Organization [facility] Address [address] [place] [address] Care Team Providers Care Polisher Balance Screwhead Name Role Phone Malcolm Cid MD Primary Care Provider +1- [phone] Source Comments In the event this information is protected by the Federal Confidentiality of Alcohol and Drug AbusePatient Records regulations: The Federal rules restrict any use of the information to criminally investigate or prosecute any alcohol or drug abuse patient.[facility] Encounter Details Date Type Department Care Team (Late st Contact Info) Description 08/03/2018 Patient Msg Infectious Disease [address] [place], [place] [phone] Provider, Ccf RE: Dr Castro office- Message. [...] rOalia Hurtado RN * Do you have serious [...] 10/03/2024 8:00 AM EDT Office Visit Rheumatology [address] [place] [address] [place] [address] [place] [address] Return in about 9 months (around 10/03/2024). documented as of this encounter Visit Diagnoses Not on filedocumented in this encounter Care Teams Polisher Balance Screwhead Relationship Specialty Start Date End Date Malcolm Cid MD PCP - General Family Medicine 01/07/15 documented as of this encounter
--- OUTSIDE RECORDS SUMMARY | 2024-07-30 19:40 | XMS_ITS | Encounter Summary ---
Author Organization [facility] Address [address] [place] [address] Care Team Providers Care Recordist Chief Name Role Phone Malcolm Cid MD Primary Care Provider +1- [phone] Source Comments In the event this information is protected by the Federal Confidentiality of Alcohol and Drug AbusePatient Records regulations: The Federal rules restrict any use of the information to criminally investigate or prosecute any alcohol or drug abuse patient.[facility] Encounter Details Date Type Department Care Team (Late st Contact Info) Description 08/10/2018 Patient Msg Rheumatology [address] [place], [place] [phone] Provider, Ccf RE: Please reply back Social [...] 10/03/2024 8:00 AM EDT Office Visit Rheumatology [address] [place] [address] [place] [address] [place] [address] Return in about 9 months (around 10/03/2024). documented as of this encounter Visit Diagnoses Not on filedocumented in this encounter Care Teams Recordist Chief Relationship Specialty Start Date End Date Malcolm Cid MD PCP - General Family Medicine 01/07/15 documented as of this encounter
--- OUTSIDE RECORDS SUMMARY | 2024-07-30 19:40 | XMS_ITS ---
Author Organization [facility] Address [address] [place] [address] Care Team Providers Care Refrigerating Machine Operator Name Role Phone Malcolm Cid MD Primary Care Provider [phone] Malcolm Cid MD Unavailable Merry Paz LPN [...]
--- OUTSIDE RECORDS SUMMARY | 2024-07-30 19:40 | XMS_ITS | Encounter Summary ---
Author Organization [facility] Address [address] [place] [address] Care Team Providers Care Truer Pinion And Wheel Name Role Phone Malcolm Cid MD Primary Care Provider +1- [phone] Source Comments In the event this information is protected by the Federal Confidentiality of Alcohol and Drug AbusePatient Records regulations: The Federal rules restrict any use of the information to criminally investigate or prosecute any alcohol or drug abuse patient.[facility] Encounter Details Date Type Department Care Team (Late st Contact Info) Description 11/12/2019 Patient Msg Rheumatology [address] [place], [place] [phone] [place] [address] [place], [place] [phone] Lab reminder Social History Tobacco Use Types [...] 8:00 AM EDT Office Visit Rheumatology [address] [place] [address] [place] [address] [place] [address] Return in about 9 months (around 10/03/2024). documented as of this encounter Visit Diagnoses Not on filedocumented in this encounter Care Teams Truer Pinion And Wheel Relationship Specialty Start Date End Date Malcolm Cid MD PCP - General Family Medicine 01/07/15 documented as of this encounter
--- OUTSIDE RECORDS SUMMARY | 2024-07-30 19:40 | XMS_ITS | Encounter Summary ---
Author Organization [facility] Address [address] [place] [address] Care Team Providers Care Assistant Professor Of Spanish Name Role Phone Malcolm Cid MD Primary Care Provider +1- [phone] Source Comments In the event this information is protected by the Federal Confidentiality of Alcohol and Drug AbusePatient Records regulations: The Federal rules restrict any use of the information to criminally investigate or prosecute any alcohol or drug abuse patient.[facility] Encounter Details Date Type Department Care Team (Late st Contact Info) Description 02/12/2020 Patient Msg Rheumatology [address] [place], [place] [phone] [place] [address] [place] [address] Lab reminder Social History Tobacco Use Types Packs/Day Years Used Date Smoking Tobacco: Never Smokeless Tobacco: Current Chew PHQ-2 Answer Date Recorded PHQ-2 score 6 11/09/2019 Area Deprivation Index Answer Date Adis rded National Score (1-100), lower number is lower ri sk Not on file 02/05/2020 State Score (1-10), lower number is lower risk N ot on file 02/05/2020 Data from: https://www.neighborhoodatlas.medicine.[facility]/. Last address used for calculation [...] 10/03/2024 8:00 AM EDT Office Visit Rheumatology [address] [place], [place] [phone] [place] [address] [place], [place] [phone] Return in about 9 months (around 10/03/2024). documented as of this encounter Visit Diagnoses Not on filedocumented in this encounter Care Teams Assistant Professor Of Spanish Relationship Specialty Start Date End Date Malcolm Cid MD PCP - General Family Medicine 01/07/15 documented as of this encounter
--- OUTSIDE RECORDS SUMMARY | 2024-07-30 19:40 | XMS_ITS | Encounter Summary ---
Author Organization [facility] Address [address] [place] [address] Care Team Providers Care Hospital Social Worker Name Role Phone Malcolm Cid MD Primary Care Provider +1- [phone] Source Comments In the event this information is protected by the Federal Confidentiality of Alcohol and Drug AbusePatient Records regulations: The Federal rules restrict any use of the information to criminally investigate or prosecute any alcohol or drug abuse patient.[facility] Encounter Details Date Type Department Care Team (Late st Contact Info) Description 08/12/2018 Patient Msg Rheumatology [address] [place], [place] [phone] Provider, Ccf Dr Castro reply to your [...] 10/03/2024 8:00 AM EDT Office Visit Rheumatology [address] [place], [place] [phone] [place] [address] [place] [address] Return in about 9 months (around 10/03/2024). documented as of this encounter Visit Diagnoses Not on filedocumented in this encounter Care Teams Hospital Social Worker Relationship Specialty Start Date End Date Malcolm Cid MD PCP - General Family Medicine 01/07/15 documented as of this encounter
--- OUTSIDE RECORDS SUMMARY | 2024-07-30 19:40 | XMS_ITS | Encounter Summary ---
Author Organization [facility] Address [address] [place] [address] Care Team Providers Care Ticket Sorter Name Role Phone Malcolm Cid MD Primary Care Provider +1- [phone] Source Comments In the event this information is protected by the Federal Confidentiality of Alcohol and Drug AbusePatient Records regulations: The Federal rules restrict any use of the information to criminally investigate or prosecute any alcohol or drug abuse patient.[facility] Encounter Details Date Type Department Care Team (Late st Contact Info) Description 03/10/2019 Patient Msg Rheumatology [address] [place], [place] [phone] [place] [address] [place], [place] [phone] Previsit lab reminder Social History Tobacco Use [...] 10/03/2024 8:00 AM EDT Office Visit Rheumatology [address] [place] [address] [place] [address] [place] [address] Return in about 9 months (around 10/03/2024). documented as of this encounter Visit Diagnoses Not on filedocumented in this encounter Care Teams Ticket Sorter Relationship Specialty Start Date End Date Malcolm Cid MD PCP - General Family Medicine 01/07/15 documented as of this encounter
--- OUTSIDE RECORDS SUMMARY | 2024-07-30 19:40 | XMS_ITS | Encounter Summary ---
Author Organization [facility] Address [address] [place] [address] Care Team Providers Care Bricklayer Tender Name Role Phone Malcolm Cid MD Primary Care Provider +1- [phone] Source Comments In the event this information is protected by the Federal Confidentiality of Alcohol and Drug AbusePatient Records regulations: The Federal rules restrict any use of the information to criminally investigate or prosecute any alcohol or drug abuse patient.[facility] Encounter Details Date Type Department Care Team (Late st Contact Info) Description 02/11/2018 Patient Msg Rheumatology [address] [place] [address] Provider, Ccf response - Dr [...] 10/03/2024 8:00 AM EDT Office Visit Rheumatology [address] [place] [address] [place] [address] [place] [address] Return in about 9 months (around 10/03/2024). documented as of this encounter Visit Diagnoses Not on filedocumented in this encounter Care Teams Bricklayer Tender Relationship Specialty Start Date End Date Malcolm Cid MD PCP - General Family Medicine 01/07/15 documented as of this encounter
--- OUTSIDE RECORDS SUMMARY | 2024-07-30 19:40 | XMS_ITS | Encounter Summary ---
Author Organization [facility] Address [address] [place] [address] Care Team Providers Care Pre Press Manager Name Role Phone Malcolm Cid MD Primary Care Provider [phone] Source Comments In the event this information is protected by the Federal Confidentiality of Alcohol and Drug AbusePatient Records regulations: The Federal rules restrict any use of the information to criminally investigate or prosecute any alcohol or drug abuse patient.[facility] Encounter Details Date Type Department Care Team (Late st Contact Info) Description 08/12/2018 Patient Msg Rheumatology [address] [place], [place] [id number] Provider, Ccalvarado RE: Reply Social History Tobacco [...] 10/03/2024 8:00 AM EDT Office Visit Rheumatology [address] [place] [address] [place] [address] [place] [address] Return in about 9 months (around 10/03/2024). documented as of this encounter Visit Diagnoses Not on filedocumented in this encounter Care Teams Pre Press Manager Relationship Specialty Start Date End Date Malcolm Cid MD PCP - General Family Medicine 01/07/15 documented as of this encounter
--- OUTSIDE RECORDS SUMMARY | 2024-07-30 19:41 | XMS_ITS | Encounter Summary ---
Author Organization [facility] Address [address] [place] [address] Care Team Providers Care Make Up Artist Name Role Phone Malcolm Cid MD Primary Care Provider [phone] Malcolm Cid MD Unavailable Wednesday, Alma AQUINON Unavailable [phone] Jayne Del Valle RN Unavailable Merry Paz SUBWAY CAR REPAIRER Unavailable Unavailable Encounter Details Date Type Department Care Team (Late st Contact Info) Description 08/23/2023 Abstract [facility] [address] [facility] 110 [place] [phone] Malcolm Cid MD 112 [facility] 110 [place], [place] [id number] Social History Tobacco Use Types Packs/Day Years [...] care, and heating? Not very hard 09/14/2022 [facility] of Occupat ional Health - [...] place to sleep or slept in a fci (including now)? No 09/14/2022 Sex and Gender [...] on filedocumented in this encounter Care Teams Make Up Artist Relationship Specialty Start Date End Date Malcolm Cid MD [address] [facility] 110 [place] [address] PCP - General Family Medicine 07/29/22 Malcolm Cid MD [address] [place] [address] PCP - [facility] 05/30/22Wednesday, BREE Marquez [address] [place] [address] Licensed Practical Nurse Family Medicine 06/04/23 Jayne Del Valle, RN Licensed Practical Nurse Family Medicine 04/07/2404/30 Merry Paz LPN 05/19/24 documented as of this encounter
--- OUTSIDE RECORDS SUMMARY | 2024-07-30 19:41 | XMS_ITS | Encounter Summary ---
Author Organization [facility] Address [address] [place] [address] Care Team Providers Care Cigar Packer And Grader Name Role Phone Malcolm Cid MD Primary Care Provider [phone] Malcolm Cid MD Unavailable Wednesday, Alma AQUINON Unavailable [phone] Jayne Del Valle RN Unavailable Merry Paz HR REPRESENTATIVE Unavailable Unavailable Reason for Visit * Reason Onset Date Comments Med Refill 03/16/2023 Tram[facility]ol [facility] Encounter Details Date Type Department Care Team (Late st Contact Info) Description 03/16/2023 Refill [facility] [address] [facility] 110 [place] [phone] Malcolm Cid MD [address] [facility] 110 [place] [address] Rheumatoid arthritis involving multiple sites [...] How often do you attend chur or orthodoxy services? More than 4 times per year 09/14/2022 Do you belong to any clubs o r organizations such as zoroastrian groups, unions, fraternal or athletic groups, or [...] care, and heating? Not very hard 09/14/2022 [facility] [place] of Occupat ional Health - Occupational Stress [...] involving multiple sites with positive rheumatoid factor ([facility]) documented in this encounter Care Teams Cigar Packer And Grader Relationship Specialty Start Date End Date Malcolm Cid MD [address] [place] [address] PCP - General Family Medicine 07/29/22 Malcolm Cid MD [address] [place] [address] PCP - [facility] 05/30/22WednesdayAlma LPN [address] [place] [address] Licensed Practical Nurse Family Medicine 06/04/23 Jayne Del Valle, RN Licensed Practical Nurse Family Medicine 04/07/2404/30 Merry Paz LPN 05/19/24 documented as of this encounter
--- OUTSIDE RECORDS SUMMARY | 2024-07-30 19:41 | XMS_ITS | Encounter Summary ---
Author Organization [facility] Address [address] [place] [address] Care Team Providers Care Individual Pension Consultant Name Role Phone Malcolm Cid MD Primary Care Provider [phone] Malcolm Cid MD Unavailable Wednesday, Alma AQUINON Unavailable [phone] Jayne Del Valle RN Unavailable [phone] Merry Paz BEHAVIORAL MEDICAL DIRECTOR Unavailable Unavailable Encounter Details Date Type Department Care Team (Late st Contact Info) Description 2023 Abstract [facility] [address] [facility] 110 [place] [phone] Malcolm Cid MD 112 [facility] 110 [place], [place] [id number] Social History Tobacco Use Types Packs/Day Years [...] any clubs o r organizations such as holiness groups, unions, fraternal or athletic groups, or [...] care, and heating? Not very hard 09/14/2022 [facility] of Occupat ional Health - [...] on filedocumented in this encounter Care Teams Individual Pension Consultant Relationship Specialty Start Date End Date Malcolm Cid MD [address] [place] [address] PCP - General Family Medicine 07/29/22 Malcolm Cid MD [address] [place] [address] PCP - [facility] 05/30/22Wednesday, BREE Marquez [address] [place] [address] Licensed Practical Nurse Family Medicine 06/04/23 Jayne Del Valle, RN Licensed Practical Nurse Family Medicine 04/07/2404/30 Merry Paz LPN 05/19/24 documented as of this encounter
--- OUTSIDE RECORDS SUMMARY | 2024-07-30 19:41 | XMS_ITS | Encounter Summary ---
Author Organization [facility] Address [address] [place] [address] Care Team Providers Care Linotype Machinist Name Role Phone Malcolm Cid MD Primary Care Provider [phone] Maloclm Cid MD Unavailable Wednesday, Alma AQUINON Unavailable Jayne Del Valle RN Unavailable Merry Paz IP LITIGATION ASSOCIATE Unavailable Unavailable Encounter Details Date Type Department Care Team (Late st Contact Info) Description 07/06/2023 Abstract [facility] 112 [facility] 110 [place] [address] Malcolm Cid MD 112 [facility] 110 [place], [place] [address] Social History Tobacco Use Types Packs/Day Years [...] any clubs o r organizations such as nondenominational groups, unions, fraternal or athletic groups, or [...] care, and heating? Not very hard 09/14/2022 [facility] of Occupat ional Health - Occupational Stress [...] on filedocumented in this encounter Care Teams Linotype Machinist Relationship Specialty Start Date End Date Malcolm Cid MD [address] [facility] 110 [place] [address] PCP - General Family Medicine 07/29/22 Malcolm Cid MD [address] [place] [address] PCP - [facility] 05/30/22Wednesday, BREE Marquez [address] [place] [address] Licensed Practical Nurse Family Medicine 06/04/23 Jayne Del Valle, RN Licensed Practical Nurse Family Medicine 04/07/2404/30 Merry Paz LPN 05/19/24 documented as of this encounter
--- OUTSIDE RECORDS SUMMARY | 2024-07-30 19:41 | XMS_ITS | Encounter Summary ---
Author Organization [facility] Address [address] [place] [address] Care Team Providers Care Check And Transfer Beader Name Role Phone Malcolm Cid MD Primary Care Provider [phone] Malcolm Cid MD Unavailable Wednesday, Alma AQUINON Unavailable [phone] Jayne Del Valle RN Unavailable Merry Paz ROTARY VENEER MACHINE OPERATOR Unavailable Unavailable Encounter Details Date Type Department Care Team (Late st Contact Info) Description 09/06/2023 Abstract [facility] [address] [facility] 110 [place] [address] Malcolm Cid MD 112 [facility] 110 [place], [place] [id number] Social History Tobacco Use Types Packs/Day Years [...] How often do you attend chur or buddhism services? More than 4 times per year [...] care, and heating? Not very hard 09/14/2022 [facility] of Occupat ional Health - Occupational [...] on filedocumented in this encounter Care Teams Check And Transfer Beader Relationship Specialty Start Date End Date Malcolm Cid MD [address] [facility] 110 [place] [address] PCP - General Family Medicine 07/29/22 Malcolm Cid MD [address] [place] [address] PCP - [facility] 05/30/22Wednesday, BREE Marquez [address] [place] [address] Licensed Practical Nurse Family Medicine 06/04/23 Jayne Del Valle, RN Licensed Practical Nurse Family Medicine 04/07/2404/30 Merry Paz LPN 05/19/24 documented as of this encounter
--- OUTSIDE RECORDS SUMMARY | 2024-07-30 19:41 | XMS_ITS | Encounter Summary ---
Author Organization [facility] Address [address] [place] [address] Care Team Providers Care Restaurant Mgr Name Role Phone Malcolm Cid MD Primary Care Provider [phone] Source Comments In the event this information is protected by the Federal Confidentiality of Alcohol and Drug AbusePatient Records regulations: The Federal rules restrict any use of the information to criminally investigate or prosecute any alcohol or drug abuse patient.[facility] Encounter Details Date Type Department Care Team (Late st Contact Info) Description 05/09/2020 Patient Msg Rheumatology [address] [place], [place] [id number] Provider, Ccf Results Social History Tobacco Use Types Packs/Day Years Used Date Smoking Tobacco: Never Smokeless Tobacco: Current Chew PHQ-2 Answer Date Recorded PHQ-2 score 4 03/31/2020 Area Deprivation Index Answer Date Adis rded National Score (1-100), lower number is lower ri sk Not on file 02/05/2020 State Score (1-10), lower number is lower risk N ot on file 02/05/2020 Data from: https://www.neighborhoodatlas.medicine.[facility].edu/. Last address used for calculation Not [...] 10/03/2024 8:00 AM EDT Office Visit Rheumatology [address] [place] [address] [place] [address] [place] [address] Return in about 9 months (around 10/03/2024). documented as of this encounter Visit Diagnoses Not on filedocumented in this encounter Care Teams Restaurant Mgr Relationship Specialty Start Date End Date Malcolm Cid MD PCP - General Family Medicine 01/07/15 documented as of this encounter
--- OUTSIDE RECORDS SUMMARY | 2024-07-30 19:41 | XMS_ITS | Encounter Summary ---
Author Organization [facility] Address [address] [place] [address] Care Team Providers Care Supervisor Cold Rolling Name Role Phone Malcolm Cid MD Primary Care Provider [phone] Malcolm Cid MD Unavailable Wednesday, Alma AQUINON Unavailable [phone] Jayne Del Valle RN Unavailable [phone] Merry Paz INDUSTRIAL ROOFER Unavailable Unavailable Encounter Details Date Type Department Care Team (Late st Contact Info) Description 02/23/2023 Abstract [facility] [address] [facility] 110 [place] [address] Malcolm Cid MD 112 [facility] 110 [place], [place] [address] Social History Tobacco Use Types Packs/Day Years [...] care, and heating? Not very hard 09/14/2022 [facility] of Occupat ional Health - [...] on filedocumented in this encounter Care Teams Supervisor Cold Rolling Relationship Specialty Start Date End Date Malcolm Cid MD [address] [place] [address] PCP - General Family Medicine 07/29/22 Malcolm Cid MD [address] [place] [address] PCP - [facility] 05/30/22Wednesday, BREE Marquez [address] [place] [address] Licensed Practical Nurse Family Medicine 06/04/23 Jayne Del Valle, RN Licensed Practical Nurse Family Medicine 04/07/2404/30 Merry Paz LPN 05/19/24 documented as of this encounter
--- OUTSIDE RECORDS SUMMARY | 2024-07-30 19:41 | XMS_ITS | Encounter Summary ---
Author Organization [facility] Address [address] [place] [address] Care Team Providers Care Water Treatment Plant Repairer Name Role Phone Malcolm Cid MD Primary Care Provider [phone] Source Comments In the event this information is protected by the Federal Confidentiality of Alcohol and Drug AbusePatient Records regulations: The Federal rules restrict any use of the information to criminally investigate or prosecute any alcohol or drug abuse patient.[facility] Encounter Details Date Type Department Care Team (Late st Contact Info) Description 10/28/2018 Patient Msg Rheumatology [address] [place], [place] [phone] Provider, Ccf Dr Castro message Social History [...] 10/03/2024 8:00 AM EDT Office Visit Rheumatology [address] [place] [address] [place] [address] [place] [address] Return in about 9 months (around 10/03/2024). documented as of this encounter Visit Diagnoses Not on filedocumented in this encounter Care Teams Water Treatment Plant Repairer Relationship Specialty Start Date End Date Malcolm Cid MD PCP - General Family Medicine 01/07/15 documented as of this encounter
--- OUTSIDE RECORDS SUMMARY | 2024-07-30 19:41 | XMS_ITS | Encounter Summary ---
Author Organization [facility] Address [address] [place] [address] Care Team Providers Care Aperture Mask Etcher Name Role Phone Malcolm Cid MD Primary Care Provider [phone] Source Comments In the event this information is protected by the Federal Confidentiality of Alcohol and Drug AbusePatient Records regulations: The Federal rules restrict any use of the information to criminally investigate or prosecute any alcohol or drug abuse patient.[facility] Encounter Details Date Type Department Care Team (Late st Contact Info) Description 03/04/2018 Patient Msg Infectious Disease [address] [place], [place] [phone] Provider, Ccf Dr Castro reply Social History [...] 10/03/2024 8:00 AM EDT Office Visit Rheumatology [address] [place] [address] [place] [address] [place] [address] Return in about 9 months (around 10/03/2024). documented as of this encounter Visit Diagnoses Not on filedocumented in this encounter Care Teams Aperture Mask Etcher Relationship Specialty Start Date End Date Malcolm Cid MD PCP - General Family Medicine 01/07/15 documented as of this encounter
--- OUTSIDE RECORDS SUMMARY | 2024-07-30 19:41 | XMS_ITS | Encounter Summary ---
Author Organization [facility] Address [address] [place] [address] Care Team Providers Care Director Ship Name Role Phone Malcolm Cid MD Primary Care Provider [phone] Malcolm Cid MD Unavailable Wednesday, Alma AQUINON Unavailable [phone] Jayne Del Valle RN Unavailable [phone] Merry Paz MEDICAL REVIEWER Unavailable Unavailable Encounter Details Date Type Department Care Team (Late st Contact Info) Description 06/25/2023 Abstract [facility] [address] [facility] 110 [place] [address] Malcolm Cid MD 112 [facility] 110 [place], [place] [address] Social History Tobacco Use Types Packs/Day Years [...] filedocumented in this encounter Care Teams Director Ship Relationship Specialty Start Date End Date Malcolm Cid MD [address] [facility] 110 [place] [address] PCP - General Family Medicine 07/29/22 Malcolm Cid MD [address] [place] [address] PCP - [facility] 05/30/22Wednesday, BREE Marquez [address] [place] [address] Licensed Practical Nurse Family Medicine 06/04/23 Jayne Del Valle, RN Licensed Practical Nurse Family Medicine 04/07/2404/30 Merry Paz LPN 05/19/24 documented as of this encounter
--- OUTSIDE RECORDS SUMMARY | 2024-07-30 19:41 | XMS_ITS | Encounter Summary ---
Author Organization [facility] Address [address] [place] [address] Care Team Providers Care Wastewater Analyst Lab Analyst Name Role Phone Malcolm Cid MD Primary Care Provider [phone] Source Comments In the event this information is protected by the Federal Confidentiality of Alcohol and Drug AbusePatient Records regulations: The Federal rules restrict any use of the information to criminally investigate or prosecute any alcohol or drug abuse patient.[facility] Encounter Details Date Type Department Care Team (Late st Contact Info) Description 09/09/2018 Patient Msg Rheumatology [address] [place], [place] [phone] Provider, Ccf Reply Social History Tobacco Use [...] 10/03/2024 8:00 AM EDT Office Visit Rheumatology [address] [place] [address] [place] [address] [place] [address] Return in about 9 months (around 10/03/2024). documented as of this encounter Visit Diagnoses Not on filedocumented in this encounter Care Teams Wastewater Analyst Lab Analyst Relationship Specialty Start Date End Date Malcolm Cid MD PCP - General Family Medicine 01/07/15 documented as of this encounter
--- OUTSIDE RECORDS SUMMARY | 2024-07-30 19:41 | XMS_ITS | Encounter Summary ---
Author Organization [facility] Address [address] [place] [address] Care Team Providers Care Board Setter Name Role Phone Malcolm Cid MD Primary Care Provider [phone] Malcolm Cid MD Unavailable Wednesday, Alma AQUINON Unavailable [phone] Jayne Del Valle RN Unavailable [phone] Merry Paz SECURITY MANAGER Unavailable Unavailable Reason for Visit * Reason Onset Date Comments Med Refill 08/30/2023 Encounter Details Date Type Department Care Team (Late st Contact Info) Description 08/30/2023 Refill [facility] [address] [facility] 110 [place] [address] Malcolm Cid MD [address] [facility] 110 [place], [place] [phone] Social History Tobacco Use Types Packs/Day Years [...] care, and heating? Not very hard 09/14/2022 [facility] of Occupat ional Health - Occupational Stress [...] place to sleep or slept in a alf (including now)? No 09/14/2022 Sex and Gender [...] on filedocumented in this encounter Care Teams Board Setter Relationship Specialty Start Date End Date Malcolm Cid MD [address] [place] [address] PCP - General Family Medicine 07/29/22 Malcolm Cid MD [address] [place] [address] PCP - [facility] 05/30/22Wednesday, BREE Marquez [address] [place] [address] Licensed Practical Nurse Family Medicine 06/04/23 Jayne Del Valle, DELMIS Licensed Practical Nurse Family Medicine 04/07/2404/30 Merry Paz LPN 05/19/24 documented as of this encounter
--- OUTSIDE RECORDS SUMMARY | 2024-07-30 19:41 | XMS_ITS | Encounter Summary ---
Author Organization [facility] Address [address] [place] [address] Care Team Providers Care Cbx Operator Name Role Phone Malcolm Cid MD Primary Care Provider [phone] Source Comments In the event this information is protected by the Federal Confidentiality of Alcohol and Drug AbusePatient Records regulations: The Federal rules restrict any use of the information to criminally investigate or prosecute any alcohol or drug abuse patient.[facility] Encounter Details Date Type Department Care Team (Late st Contact Info) Description 05/09/2020 Patient Msg Rheumatology [address] [place], [place] [id number] Provider, Ccf Results Social History Tobacco Use Types Packs/Day Years Used Date Smoking Tobacco: Never Smokeless Tobacco: Current Chew PHQ-2 Answer Date Recorded PHQ-2 score 4 03/31/2020 Area Deprivation Index Answer Date Adis rded National Score (1-100), lower number is lower ri sk Not on file 02/05/2020 State Score (1-10), lower number is lower risk N ot on file 02/05/2020 Data from: https://www.neighborhoodatlas.medicine.[facility].edu/. Last address used for calculation Not on [...] 10/03/2024 8:00 AM EDT Office Visit Rheumatology [address] [place] [address] [place] [address] [place] [address] Return in about 9 months (around 10/03/2024). documented as of this encounter Visit Diagnoses Not on filedocumented in this encounter Care Teams Cbx Operator Relationship Specialty Start Date End Date Malcolm Cid MD PCP - General Family Medicine 01/07/15 documented as of this encounter
--- OUTSIDE RECORDS SUMMARY | 2024-07-30 19:41 | XMS_ITS | Encounter Summary ---
Author Organization [facility] Address [address] [place] [address] Care Team Providers Care Rerolling Machine Operator Name Role Phone Malcolm Cid MD Primary Care Provider [phone] Malcolm Cid MD Unavailable Wednesday, Alma AQUINON Unavailable Jayne Del Valle RN Unavailable Merry Paz PERSONAL CARE ATTENDANT Unavailable Unavailable Encounter Details Date Type Department Care Team (Late st Contact Info) Description 05/12/2023 Abstract [facility] [address] [facility] 110 [place] [address] Malcolm Cid MD 112 [facility] 110 [place], [place] [address] Social History Tobacco Use Types Packs/Day Years [...] How often do you attend chur or faith services? More than 4 times per year 09/14/2022 Do you belong to any clubs o r organizations such as jain groups, unions, fraternal or athletic groups, or [...] on filedocumented in this encounter Care Teams Rerolling Machine Operator Relationship Specialty Start Date End Date Malcolm Cid MD [address] [facility] 110 [place] [address] PCP - General Family Medicine 07/29/22 Malcolm Cid MD [address] [place] [address] PCP - [facility] 05/30/22Wednesday, BREE Marquez [address] [place] [address] Licensed Practical Nurse Family Medicine 06/04/23 Jayne Del Valle, RN Licensed Practical Nurse Family Medicine 04/07/2404/30 Merry Paz LPN 05/19/24 documented as of this encounter
--- OUTSIDE RECORDS SUMMARY | 2024-07-30 19:41 | XMS_ITS | Encounter Summary ---
Author Organization [facility] Address [address] [place] [address] Care Team Providers Care Rail Bender Name Role Phone Malcolm Cid MD Primary Care Provider [phone] Source Comments In the event this information is protected by the Federal Confidentiality of Alcohol and Drug AbusePatient Records regulations: The Federal rules restrict any use of the information to criminally investigate or prosecute any alcohol or drug abuse patient.[facility] Encounter Details Date Type Department Care Team (Late st Contact Info) Description 12/27/2018 Patient Msg Rheumatology [address] [place], [place] [phone] Provider, Issa RE: Update from Dr Castro [...] 10/03/2024 8:00 AM EDT Office Visit Rheumatology [address] [place], [place] [phone] [place] [address] [place] [address] Return in about 9 months (around 10/03/2024). documented as of this encounter Visit Diagnoses Not on filedocumented in this encounter Care Teams Rail Bender Relationship Specialty Start Date End Date Malcolm Cid MD PCP - General Family Medicine 01/07/15 documented as of this encounter
--- OUTSIDE RECORDS SUMMARY | 2024-07-30 19:41 | XMS_ITS | CCD ---
Author Organization [facility] Care Team Providers Care Dog Control Officer Name Role Phone LEYDI ACEVES Primary Care Unavailable Leydi Aceves Primary Care Provider MD Leydi Aceves Primary Care Provider MD Juvenal Smith Emergency Provider [phone] MD Adam Young Admit Provider [phone] MD Hector Adam Attending Provider Leydi [...] ZHAO Admitting Unavailable RUFINA MARIN Consulting Unavailable HZAO DAWSON Attending Unavailable KETAN, DR HOLLEY Primary [...] Unavailable HAY ., DR DUGGAN Admitting Unavailable Grandfield MD [facility] Care Provider KAYCE COFFMAN Referring Unavailable HANOVER, [facility] Primary Care Unavailable Ladi Huber Attending Unavailable Grandfield MD [facility] Care Provider Ketan CABRAL [facility] Unavailable Ketan CABRAL [facility] Provider [phone] MD Ketan [facility] Primary Care Provider MD Nicola Leyva Attending Provider Nicola Leyva Attending Unavailab le [facility] Unavailable Adam Young Admitting Unavailable Nicola Leyva Attending Unavailab le [facility] Care Unavailable Nicola Leyva Admitting Unavailab le Wednesday CASH PROCESSOR, [place] Unavailable DELMY BOYLE Referring Unavailable KETAN, [facility] Care Unavailable DELMY BOYLE Referring Unavailable KETAN, [facility] Care Unavailable DELMY BOYLE Attending Unavailable KETAN, [facility] Care Unavailable DELMY BOYLE Referring Unavailable KETAN, [facility] Care Unavailable KETAN, [facility] Care Unavailable DELMY BOYLE Attending Unavailable DELMY BOYLE Referring Unavailable KETAN, [facility] Primary Care Unavailable DELMY BOYLE Attending Unavailable KETAN, [facility] Primary Care Unavailable Ivon BENITES, Jayne Unavailable [...] daily as needed for pain HYDROcodone-aceta minophen ([place]) 5-325 MG tablet Indications: 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) Take 1 tablet by mouth Daily as needed for severe pain for up to 5 days 5 tablet 07/07/2024 07/12/2024 Active Start: 07-03-2024 End: 07-08-2024 take 1 tablet by mouth once HYDROcodone-acetaminophen ([place]) 5-325 MG tablet Indications: 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) Take 1 tablet by mouth every 12 (twelve) hours if needed for severe pain for up to 5 days 10 tablet 07/03/2024 07/07/2024 Discontinued (Reorder) Start: 06-27-2024 End: 07-03-2024 take 1 tablet by mouth every eight hours for pain HYDROcodone-acetaminophen ([place]) 5-325 MG tablet Indications: 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) Take 1 tablet by mouth every 8 (eight) hours if needed for severe pain for up to 5 days 15 tablet 06/27/2024 07/03/2024 Discontinued (Reorder) Start: 05-18-2024 End: 06-24-2024 take 1 tablet by mouth every six hours for pain HYDROcodone-acetaminophen ([place]) 5-325 MG tablet Indications: 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) Take 1 tablet by mouth every 6 (six) hours if needed for severe pain for up to 5 days 20 tablet 06/19/2024 06/24/2024 Active Start: 05-11-2024 End: 05-16-2024 take 1 tablet by mouth every six hours for pain HYDROcodone-acetaminophen ([place]) 5-325 MG tablet Indications: Abscess of right index finger Take 1 tablet by mouth every 6 (six) hours if needed for severe pain for up to 5 days 20 tablet 05/11/2024 05/16/2024 Active Start: 04-20-2024 End: 04-30-2024 take 1 tablet by mouth every six hours for pain HYDROcodone-acetaminophen ([place]) 5-325 MG tablet Indications: Abscess of right [...] 07, 2021 12:00am May 09, 2023 1:48am [id number] 200 actuat albuterol 0.09 mg/actuat metered dose [...] involving multiple sites with positive rheumatoid factor ([facility]) Take 4 tablets (40 mg) [...] (2 sources) Patient encounter status; Translations: [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] Episodic Other aftercare (2 sources) Long-term current use of drug therapy; Translations: [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] 01-04-2024 Episodic Other connective [...] 01-31-2022 Episodic Other aftercare (3 sources) 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; Translations: [OTH REVIEW CONSULTANT CURRENT DRUG THERAPY] Onset: 06-30-2022 Episodic Other [...] WITH AUTO DIFFon BASOPHILS ABSOLUTE AUTO 0 [facility] Basophils/100 WBC (Bld) 0.2 % 0.2 - 2.0 % [facility] Eosinophils/100 WBC (Bld) 0.5 % Low 0.9 - 7.0 % [facility] Erythrocyte distribution width (RBC) [Ratio] 13 % 11.0 - 15.0 % [facility] Hematocrit (Bld) [Volume fraction] 40.4 % Low 42.0 - 54.0 % [facility] Hemoglobin (Bld) [Mass/Vol] 13.6 g/dL Low 14.0 - 18.0 g/dL [facility] IMMATURE GRANULOCYTES ABS AUTO 0.02 [facility] Immature granulocytes/100 WBC (Bld) 0.2 % 0.0 - 0.5 % [facility] Interpretation and review of laboratory results Abnormal [facility] LYMPHOCYTES ABSOLUTE [facility]O [facility].1 [facility] Lymphocytes/100 WBC (Bld) 37.1 % 20.5 - 60.0 % [facility] MCH (RBC) [Entitic mass] 29.4 pg 25.9 - 34.0 pg [facility] MCHC (RBC) [Mass/Vol] 33.7 g/dL 29.9 - 35.2 g/dL [facility] MCV (RBC) [Entitic vol] 87.4 fL 80.0 - 94.0 fL [facility] MONOCYTES ABSOLUTE AUTO 0.8 [facility] Monocytes/100 WBC (Bld) 9.6 % 1.7 - 12.0 % [facility] NEUTROPHILS ABSOLUTE AUTO 4.4 [facility] Neutrophils/100 WBC (Bld) 52.4 % 43.0 - 75.0 % [facility] Platelet mean volume (Bld) [Entitic vol] 10.5 fL 9.5 - 13.5 fL [facility] TBH EO # 0 [facility] TBH PLT 329 [facility] RBC 4.62 Low [facility] WBC 8.4 [facility] CNOVon 01-04-2024 CNOV Office Visit (ANA ) -- NANIOSEIN Keena ([id number]) 1990 M Date Time Provider Department 01/04/24 8:20 AM DELMY BOYLE [facility] During your visit today, we recorded the following information about you: Pulse Respiration Blood pressure Weight 84/minute 18/minute 110/77 107.4 kg Height 1.88 m Delmy Boyle MD 01/04/2024 8:58 AM Signed DX: chronic tophaceous gout, 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 Polyarthritis with several nodules mainly [...] arthritic flares once every 4 months. 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 Treated with steroids and continued allopurinol. He has not seen Dr. Jamie since 2014. In 2014, he was hospitalized in [place] for acute polyarthritis. Saw electromagnet crane operator while in hospital who told him that [...] shoulder surgery by Dr. Tc Coffey at [facility]. No post op complications. Was in [...] of gout 06/2023. He was seen in [facility] for gout flare. Given steroid injection [...] blood Nega (more content not included)... Normal [facility] Cyn 01-04-2024 LIANNAN Telephone (RHEUAV) -- NICK WRAY ([id number]) 1990 M Date Time Provider Department 01/04/24 DELMY BOYLE During your visit today, we recorded the following information about you: Camilla Holt CASH PROCESSOR 01/04/2024 1:23 PM Signed Nick Bonifaciojustin (Munoz: [id number]) [place] Rx #: [id number] Need Help? Call us at Outcome Denied [...] of therapy with generic Lidocaine patch. [facility] Policy for Medical Necessity as posted on the [facility] website and [facility] Preferred Drug List criteria were reviewed and per [place] Administrative Code Rule 5160-1-01 (C) and (B), [...] through the community. Drug ZTlido 1.8% patches [facility] cloud logo Form [place] Medicaid [facility] [employer] Electronic PA Form (2016 NCPDP) Original Claim [...] Status:Closed by CAMILLA HOLT on 01/04/24 Normal [facility] No Panel Informationon 01-03 Radiology Study observation (narrative) [facility] XR FOOT 3V AP/LAT/OBL BILon 01-04-2024 XR FOOT 3V AP/LAT/OBL RAMIRO * * *Final Report* * * DATE OF EXAM: Jan 04 2024 9:48AM [id number] - XR FOOT 3V AP/LAT/OBL RAMIRO / [...] progressed from 05/04/2017 Mild right foot osteoarthritis. Tax Associate: PSCB Transcribe Date/Time: Jan 04 2024 10:13A Dictated by : UMA ROGERS MD This examination was interpreted and the report reviewed and electronically signed by: CHELSEA REEVES MD on Jan 04 2024 3:12PM EST [id number] [facility] XR Foot - bilateral AP and [...] acute fracture or dislocation. Mild pes planus. [facility] Provider, [facility] - 01/04/2024 * * *Final [...] progressed from 05/04/2017 Mild right foot osteoarthritis. Tax Associate: ADELA Transcribe Date/Time: Jan 04 2024 10:13A Dictated by : UMA ROGERS MD This examination was interpreted and the report reviewed and electronically signed by: CHELSEA REEVES MD on Jan 04 2024 3:12PM EST [facility] XR KNEE 4V AP/PA/LAT/MERCH B [facility] 01-04-2024 XR KNEE 4V AP/PA/LAT/MERCH [...] similar to 05/04/2017. Mild right knee osteoarthritis. 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 Mild right knee osteoarthritis. Tax Associate: PSCB Transcribe Date/Time: Jan 04 2024 12:48P Dictated by : CHELSEA REEVES MD This examination was interpreted and the report reviewed and electronically signed by: CHELSEA REEVES MD on Jan 04 2024 1:21PM EST [facility] * * *Final Report* * * [...] when compared to 05/04/2017. [facility] Provider, [facility] - 01/04/2024 * * *Final [...] similar to 05/04/2017. Mild right knee osteoarthritis. Tax Associate: ADELA Transcribe Date/Time: Jan 04 2024 12:48P Dictated by : CHELSEA REEVES MD This examination was interpreted and the report reviewed and electronically signed by: CHELSEA REEVES MD on Jan 04 2024 1:21PM EST [facility] XR Knee - bilateral 4 ViewsO rdered By: [facility]cf Provider on 01-04-2024 [facility] ALT SerPl-cCncon 12-30-2023 ALT [Catalytic activity/Vol] 20 U/L Normal 10-54 [facility] Comment on above: Order Comment: Speci men Type: BLOOD SPECIMEN Ordering Facility: [facility] Address: [address] [place] [address] Performed By: #### C RET1 #### [facility] CLIA [id number] [address] [place] [address] AST SerPl-cCncon 12-30-2023 AST [Catalytic activity/Vol] 18 U/L Normal 14-40 [facility] Comment on above: Order Comment: Speci men Type: BLOOD SPECIMEN Ordering Facility: [facility] Address: [address] [place] [address] Performed By: #### C RET1 #### [facility] CLIA [id number] [address] [place] [address]3702 Albumin SerPl-mCncon 024 Albumin [Mass/Vol] 4.1 g/dL Normal 3.9-4.9 [facility] Comment on above: Order Comment: Speci men Type: BLOOD SPECIMEN Ordering Facility: [facility] Address: [address] [place] [address] Performed By: #### C RET1 #### [facility] CLIA [id number] [address] [place] [address] 98868 CBC W Auto Differential pane l (Bld)on 12-30-2023 Basophils (Bld) [#/Vol] 0.03 10*3/uL Normal <0.11 [facility] Comment on above: Order Comment: Speci men Type: BLOOD SPECIMEN Ordering Facility: [facility] Address: [address] [place] [address] Performed By: #### 5 7021-8 #### [facility] CLIA [id number] [address] [place] [address]254 Basophils/100 WBC (Bld) 0.6 % Normal [facility] Comment on above: Order Comment: Speci men Type: BLOOD SPECIMEN Ordering Facility: [facility] Address: [facility] [place] [address] Performed By: #### 5 7021-8 #### [facility] CLIA [id number] [address] [place] [address]128 Differential cell count method Nom (Bld) Auto Normal [facility] Comment on above: Order Comment: Speci men Type: BLOOD SPECIMEN Ordering Facility: [facility] Address: [address] [place] [address] Performed By: #### 5 7021-8 #### [facility] CLIA [id number] [address] [place] [address] Eosinophils (Bld) [#/Vol] 0.06 10*3/uL Normal <0.46 [facility] Comment on above: Order Comment: Speci men Type: BLOOD SPECIMEN Ordering Facility: [facility] Address: [address] [place] [address] Performed By: #### 5 7021-8 #### [facility] CLIA [id number] [address] [place] [address]00 Eosinophils/100 WBC (Bld) 1.3 % Normal [facility] Comment on above: Order Comment: Speci men Type: BLOOD SPECIMEN Ordering Facility: [facility] Address: [address] [place] [address] Performed By: #### 5 7021-8 #### [facility] CLIA [id number] [address] [place] [address]1995 Erythrocyte distribution width (RBC) [Ratio] 13.2 % Normal 11.5-15.0 [facility] Comment on above: Order Comment: Speci men Type: BLOOD SPECIMEN Ordering Facility: [facility] Address: [address] [place] [address] Performed By: #### 5 7021-8 #### [facility] CLIA [id number] [address] [place] [address]63 Hematocrit (Bld) [Volume fraction] 40.9 % Normal 39.0-51.0 [facility] Comment on above: Order Comment: Speci men Type: BLOOD SPECIMEN Ordering Facility: [facility] Address: [address] [place] [address] Performed By: #### 5 7021-8 #### [facility] CLIA [id number] [address] [place] [address]2879 Hemoglobin (Bld) [Mass/Vol] 14.3 g/dL Normal 13.0-17.0 [facility] Comment on above: Order Comment: Speci men Type: BLOOD SPECIMEN Ordering Facility: [facility] Address: [address] [place] [address] Performed By: #### 5 7021-8 #### [facility] CLIA [id number] [address] [place] [address] 24112 Immature granulocytes (Bld) [#/Vol] 10*3/uL Normal <0.10 [facility] Comment on above: Order Comment: Speci men Type: BLOOD SPECIMEN Ordering Facility: [facility] Address: [address] [place] [address] Performed By: #### 5 7021-8 #### [facility] CLIA [id number] [address] [place] [address] 23156 Immature granulocytes/100 WBC (Bld) 0.2 % Normal [facility] Comment on above: Order Comment: Speci men Type: BLOOD SPECIMEN Ordering Facility: [facility] Address: [address] [place] [address] Performed By: #### 5 7021-8 #### [facility] CLIA [id number] [address] [place] [address]208 Lymphocytes (Bld) [#/Vol] 1.71 10*3/uL Normal 1.00-4.00 [facility] Comment on above: Order Comment: Speci men Type: BLOOD SPECIMEN Ordering Facility: [facility] Address: [address] [place] [address] Performed By: #### 5 7021-8 #### [facility] CLIA [id number] [address] [place] [address] 48122 Lymphocytes/100 WBC (Bld) 36.6 % Normal [facility] Comment on above: Order Comment: Speci men Type: BLOOD SPECIMEN Ordering Facility: [facility] Address: [address] [place] [address] Performed By: #### 5 7021-8 #### [facility] CLIA [id number] [address] [place] [address] 58937 MCH (RBC) [Entitic mass] 29.9 pg Normal 26.0-34.0 [facility] Comment on above: Order Comment: Speci men Type: BLOOD SPECIMEN Ordering Facility: [facility] Address: [address] [place] [address] Performed By: #### 5 7021-8 #### [facility] CLIA [id number] [address] [place] [address] 92398 MCHC (RBC) [Mass/Vol] 35.0 g/dL Normal 30.5-36.0 [facility] Comment on above: Order Comment: Speci men Type: BLOOD SPECIMEN Ordering Facility: [facility] Address: [address] [place] [address] Performed By: #### 5 7021-8 #### [facility] CLIA [id number] [address] [place] [address] 16082 MCV (RBC) [Entitic vol] 85.4 fL Normal 80.0-100.0 [facility] Comment on above: Order Comment: Speci men Type: BLOOD SPECIMEN Ordering Facility: [facility] Address: [address] [place] [address] Performed By: #### 5 7021-8 #### [facility] CLIA [id number] [address] [place] [address] Monocytes (Bld) [#/Vol] 0.28 10*3/uL Normal <0.87 [facility] Comment on above: Order Comment: Speci men Type: BLOOD SPECIMEN Ordering Facility: [facility] Address: [address] [place] [address] Performed By: #### 5 7021-8 #### [facility] CLIA [id number] [address] [place] [address] 85749 Monocytes/100 WBC (Bld) 6.0 % Normal [facility] Comment on above: Order Comment: Speci men Type: BLOOD SPECIMEN Ordering Facility: [facility] Address: [address] [place] [address] Performed By: #### 5 7021-8 #### [facility] CLIA [id number] [address] [place] [address] 17156 Neutrophils (Bld) [#/Vol] 2.58 10*3/uL Normal 1.45-7.50 [facility] Comment on above: Order Comment: Speci men Type: BLOOD SPECIMEN Ordering Facility: [facility] Address: [address] [place] [address] Performed By: #### 5 7021-8 #### [facility] CLIA [id number] [address] [place] [address] 03879 Neutrophils/100 WBC (Bld) 55.3 % Normal [facility] Comment on above: Order Comment: Speci men Type: BLOOD SPECIMEN Ordering Facility: [facility] Address: [address] [place] [address] Performed By: #### 5 7021-8 #### [facility] CLIA [id number] [address] [place] [address] 11463 Nucleated RBC (Bld) [#/Vol] 10*3/uL Normal <0.01 [facility] Comment on above: Order Comment: Speci men Type: BLOOD SPECIMEN Ordering Facility: [facility] Address: [address] [place] [address] Performed By: #### 5 7021-8 #### [facility] CLIA [id number] [address] [place] [address] Nucleated RBC/100 WBC (Bld) [Ratio] 0.0 /100 WBC Normal [facility] Comment on above: Order Comment: Speci men Type: BLOOD SPECIMEN Ordering Facility: [facility] Address: [address] [place] [address] Performed By: #### 5 7021-8 #### [facility] CLIA [id number] [address] [place] [address] 56721 Platelet mean volume (Bld) [Entitic vol] 10.4 fL Normal 9.0-12.7 [facility] Comment on above: Order Comment: Speci men Type: BLOOD SPECIMEN Ordering Facility: [facility] Address: [address] [place] [address] Performed By: #### 5 7021-8 #### [facility] CLIA [id number] [address] [place] [address]3940 Platelets (Bld) [#/Vol] 277 10*3/uL Normal 150-400 [facility] Comment on above: Order Comment: Speci men Type: BLOOD SPECIMEN Ordering Facility: [facility] Address: [address] [place] [address] Performed By: #### 5 7021-8 #### [facility] CLIA [id number] [address] [place] [address] 16739 RBC (Bld) [#/Vol] 4.79 10*6/uL Normal 4.20-6.00 [facility] Comment on above: Order Comment: Speci men Type: BLOOD SPECIMEN Ordering Facility: [facility] Address: [address] [place] [address] Performed By: #### 5 7021-8 #### [facility] CLIA [id number] [address] [place] [address] 72464 WBC (Bld) [#/Vol] 4.67 10*3/uL Normal 3.70-11.00 [facility] Comment on above: Order Comment: Speci men Type: BLOOD SPECIMEN Ordering Facility: [facility] Address: [place] [id number] Performed By: #### 5 7021-8 #### [facility] CLIA [id number] [address] [place] [address] [facility] CBC W AUTO DIFF BLDon Basophils/100 WBC (Bld) 0.6 % [facility] BASOPHILS # BLD AUTO 0.03 [facility] DIFFERENTIAL METHOD BLD Auto [facility] EOSINOPHIL # BLD AUTO 0.06 [facility] LYMPHOCYTES # BLD AUTO 1.71 [facility] MONOCYTES # BLD AUTO 0.28 [facility] NEUTROPHILS # BLD AUTO 2.58 [facility] NRBC # BLD AUTO <0.01 [facility] NRBC/100 WBC BLD-RTO 0 /100 WBC [facility] PLATELET # BLD AUTO 277 [facility] PMV BLD AUTO 10.4 fL 9.0 - 12.7 fL [facility] WBC # BLD AUTO 4.67 [facility] Eosinophils/100 WBC (Bld) 1.3 % [facility] Erythrocyte distribution width (RBC) [Ratio] 13.2 % 11.5 - 15.0 % [facility] Hematocrit (Bld) [Volume fraction] 40.9 % 39.0 - 51.0 % [facility] Hemoglobin (Bld) [Mass/Vol] 14.3 g/dL 13.0 - 17.0 g/dL [facility] IMM GRANULOCYTES # BLD AUTO <0.03 [facility] IMM GRANULOCYTES/LEUK NFR BLD AUTO 0.2 % [facility] Lymphocytes/100 WBC (Bld) 36.6 % [facility] MCH (RBC) [Entitic mass] 29.9 pg 26.0 - 34.0 pg [facility] MCHC (RBC) [Mass/Vol] 35 g/dL 30.5 - 36.0 g/dL [facility] MCV (RBC) [Entitic vol] 85.4 fL 80.0 - 100.0 fL [facility] Monocytes/100 WBC (Bld) 6 % [facility] Neutrophils/100 WBC (Bld) 55.3 % [facility] RBC (Bld) [#/Vol] 4.79 10*6/uL 4.20 - 6.0 0 m/uL [facility] Specimen Type: BLOOD SPECIMEN Ordering Facility: [facility] Address: [address] [place] [address] Original Ordering Provider: DELMY HDEZ [facility] CREATININE BLDon 12-30-2023 Creatinine [Mass/Vol] 1.32 mg/dL High 0.73-1.22 [facility] Comment on above: Order Comment: Speci men Type: BLOOD SPECIMEN Ordering Facility: [facility] Address: [facility] [place] [address] Performed By: #### C RET1 #### [facility] CLIA [id number] [address] [place] [address] Creatinine and Glomerular filtration rate.predicted panel (S/P/Bld) 73 mL/min/1.73m??? Normal >=60 [facility] Comment on above: Order Comment: Speci men Type: BLOOD SPECIMEN Ordering Facility: [facility] Address: [address] [place] [address] Result Comment: Jyoti mated Glomerular Filtration Rate [...] GFR. Performed By: #### C RET1 #### [facility] CLIA [id number] [address] [place] [address]87 CRP SerPl-mCncon 12-30-2023 CRP [Mass/Vol] mg/L Normal <0.9 [facility] Comment on above: Order Comment: Speci men Type: BLOOD SPECIMEN Ordering Facility: [facility] Address: [address] [place] [address] Performed By: #### C RET1, 1742-6, 1920-8, 1750-08 #### [facility] CLIA [id number] [address] [place] [address] ESR Westergren method (Bld) [Velocity]on 12-30-2023 ESR (Bld) [Velocity] 15 mm/h Normal 0-15 [facility] Comment on above: Order Comment: Speci men Type: BLOOD SPECIMEN Ordering Facility: [facility] Address: [address] [place] [address] Performed By: #### 4 537-7 #### [facility] CLIA [id number] [address] [facility] DESK [id number] [place] [address] [place] Urate SerPl-ncon Urate [Mass/Vol] 4.7 mg/dL Normal 4.0-8.1 [facility] Comment on above: Order Comment: Speci men Type: BLOOD SPECIMEN Ordering Facility: [facility] Address: [address] [place] [address] Performed By: #### C RET1, 1742-6, 8, 1750-08 #### [facility] CLIA [id number] [address] [place] [address] 77283 CNOVon 06-24-2023 CNOV Office Visit (ANA ) -- NICK WRAY ([id number]) 1990 M Date Time Provider Department 06/24/23 [...] arthritic flares once every 4 months. 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 Treated with steroids and continued allopurinol. He has not seen Dr. Jaime since 2014. In 2014, he was hospitalized in [place] for acute polyarthritis. Saw electromagnet crane operator while in hospital who told him that [...] shoulder surgery by Dr. Tc Coffey at [facility]. No post op complications. Was in [...] joints. Maribel (more content not included)... Normal [facility] CRP SerPl-mCncon 06-21-2023 CRP [Mass/Vol] mg/L Normal <0.9 [facility] Comment on above: Order Comment: Speci men Type: BLOOD SPECIMEN Ordering Facility: [facility] Address: [address] [place] [address] Performed By: #### C NEEMA1, 1741-07, 1919-09, 1750-08 #### [facility] CLIA [id number] [address] [place] [address] 74676 ESR Westergren method (Bld) [Velocity]on 06-21-2023 ESR (Bld) [Velocity] 2 mm/h Normal 0-15 [facility] Comment on above: Order Comment: Speci men Type: BLOOD SPECIMEN Ordering Facility: [facility] Address: [address] [place] [address] Performed By: #### C NEEMA1, 1741-07, 1919-09, 1750-08 #### [facility] CLIA [id number] [address] [place] [address] Urate SerPl-mCncon Urate [Mass/Vol] 5.1 mg/dL Normal 4.0-8.1 [facility] Comment on above: Order Comment: Speci men Type: BLOOD SPECIMEN Ordering Facility: [facility] Address: [address] [place] [address] Performed By: #### C NEEMA1, 1741-07, 1919-09, 1750-08 #### [facility] CLIA [id number] [address] [place] [address] 19270 Lipid Panelon 05-09-2023 Cholesterol [Mass/Vol] 155 mg/dL Normal 140-200 [facility] Comment on above: Result Comment: Chol less than 200 mg/dl low risk Chol 201-239 mg/dl borderline risk Chol 240 mg/dl and greater high risk Performed By: #### L IPID, [id number], TSH3 wRFLX #### [facility] [address] [place], [place] [id number] [place] Cholesterol in HDL [Mass/Vol] 46 mg/dL Normal 23-92 [facility] Comment on above: Result Comment: HDL CHOL ATP-III CLASSIFICATION Cardiovascular Risk HDL > or equal to 60 mg/dL LOW HDL < 40 mg/dL HIGH Performed By: #### L IPID, [id number], TSH3 wRFLX #### [facility] [address] Cholesterol.total/Ch olesterol in HDL [Mass ratio] 3.4 {ratio} Normal <5.0 [facility] Comment on above: Performed By: #### L IPID, [id number], TSH3 wRFLX #### [facility] [address] LDL Cholesterol,Calculat ed 90 mg/dL Normal 0-100 [facility] Comment on above: Result Comment: LDL ATP III CLASSIFICATION LDL less than 100 mg/dL Optimal LDL 100-129 mg/dL Near or above optimal LDL 130-159 mg/dL Borderline high LDL 160-189 mg/dL High LDL greater than 189 mg/dL Very high Performed By: #### L IPID, [id number], TSH3 wRFLX #### [address] Triglyceride w/Reflex 94 mg/dL Normal 0-149 [facility] Comment on above: Result Comment: TRIG ATP III CLASSIFICATION TRIG less than 150 mg/dL Normal TRIG 150-199 mg/dL Borderline high TRIG 200-500 mg/dL High TRIG greater than 500 mg/dL Very high Standard traceable to the Center for Disease Conrtrol and Prevention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 #### C BC #### [facility] [address] [place] [address] Dr. Nilay Gibbs WBC 10.0 103/ul Normal 4.0-11.0 [facility] Comment on above: Performed By: #### C BC #### [facility] [address] [place] [address] Dr. Nilay Gibbs PROF CHEM 8 (BAS METB)on Anion gap [Moles/Vol] 12.4 mmol/L Normal [facility] Comment on above: Performed By: #### A MM #### [facility] [address] [place] [address] Dr. Nilay Gibbs Calcium [Mass/Vol] 9.4 mg/dL Normal 8.5-10.1 [facility] Comment on above: Performed By: #### A MM #### [facility] [address] [place] [address] Dr. Nilay Gibbs Chloride [Moles/Vol] 105 mmol/L Normal 98-107 [facility] Comment on above: Performed By: #### A MM #### [facility] [address] [place] [address] [address] Nilay Gibbs CO2 [Moles/Vol] 25.6 mmol/L Normal 21.0-32.0 [facility] Comment on above: Performed By: #### A MM #### [facility] [address] [place] [address] [address] Nilay Gibbs Creatinine [Mass/Vol] 1.18 mg/dL Normal 0.70-1.30 [facility] Comment on above: Performed By: #### A MM #### [facility] [address] [place] [address] Dr. Nilay Gibbs EGFR-AF FILIPINO >60 Normal >=60 [facility] Comment on above: Performed By: #### A MM #### [facility] [address] [place] [address] Dr. Nilay Gibbs EGFR-NON AF FILIPINO >60 Normal >=60 [facility] Comment on above: Performed By: #### A MM #### [facility] [address] [place] [address] Dr. Nilay Gibbs Glucose [Mass/Vol] 125 mg/dL Critically high 74-106 [facility] Comment on above: Performed By: #### A MM #### [facility] [address] [place] [address] Dr. Nilay Gibbs Potassium [Moles/Vol] 4.3 mmol/L Normal 3.5-5.1 [facility] Comment on above: Performed By: #### A MM #### [facility] [address] [place] [address] [address] Nilay Gibbs Sodium [Moles/Vol] 139 mmol/L Normal 136-145 [facility] Comment on above: Performed By: #### A MM #### [facility] [address] [place] [address] Dr. Nilay Gibbs Urea nitrogen [Mass/Vol] 15.0 mg/dL Normal 7.0-18.0 [facility] Comment on above: Performed By: #### A MM #### [facility] [address] [place] [address] [address] Nilay Gibbs Urea nitrogen/Creatinine [Mass ratio] 12.7 mg/mg Normal [facility] Comment on above: Performed By: #### A MM #### [facility] [address] [place] [address] Dr. Nilay Gibbs CBC AUTO DIFFon 06-20-2022 BASO # 0.0 103/ul Normal 0.0-0.1 [facility] Comment on above: Performed By: #### A MM #### [facility] [address] [place] [address] Dr. Nilay Gibbs Basophils/100 WBC (Bld) 0.2 % Normal 0.2-2.0 [facility] Comment on above: Performed By: #### A MM #### [facility] [address] [place] [address] Dr. Nilay Gibbs EO # 0.0 103/ul Normal 0.0-0.7 [facility] Comment on above: Performed By: #### A MM #### [facility] [address] [place] [address] Dr. Nilay Gibbs Eosinophils/100 WBC (Bld) 0.3 % Critically low 0.9-7.0 [facility] Comment on above: Performed By: #### A MM #### [facility] [address] [place] [address] Dr. Nilay Gibbs Erythrocyte distribution width (RBC) [Ratio] 14.3 % Normal 11.0-15.0 [facility] Comment on above: Performed By: #### A MM #### [facility] [address] [place] [address] Dr. Nilay Gibbs Hematocrit (Bld) [Volume fraction] 39.3 % Critically low 42.0-54.0 [facility] Comment on above: Performed By: #### A MM #### [facility] [address] [place] [address] Dr. Nilay Gibbs Hemoglobin (Bld) [Mass/Vol] 13.1 g/dL Critically low 14.0-18.0 [facility] Comment on above: Performed By: #### A MM #### [facility] [address] [place] [address] Dr. Nilay Gibbs IG # 0.03 10e3/ul Normal 0.00-0.03 [facility] Comment on above: Performed By: #### A MM #### [facility] [address] [place] [address] Dr. Nilay Gibbs IG % 0.3 % Normal 0.0-0.5 [facility] Comment on above: Performed By: #### A MM #### [facility] [address] [place] [address] Dr. Nilay Gibbs LYMPH # 1.7 103/ul Normal 1.2-3.8 [facility] Comment on above: Performed By: #### A MM #### [facility] [address] [place] [address] Dr. Nilay Gibbs Lymphocytes/100 WBC (Bld) 14.5 % Critically low 20.5-60.0 [facility] Comment on above: Performed By: #### A MM #### [facility] [address] [place] [address] Dr. Nilay Gibbs MANUAL DIFF REQ NO Normal [facility] Comment on above: Performed By: #### A MM #### [facility] [address] [place] [address] Dr. Nilay Gibbs MCH (RBC) [Entitic mass] 29.2 pg Normal 25.9-34.0 [facility] Comment on above: Performed By: #### A MM #### [facility] [address] [place] [address] Dr. Nilay Gibbs MCHC (RBC) [Mass/Vol] 33.3 g/dL Normal 29.9-35.2 [facility] Comment on above: Performed By: #### A MM #### [facility] [address] [place] [address] Dr. Nilay Gibbs MCV (RBC) [Entitic vol] 87.5 fL Normal 80.0-94.0 [facility] Comment on above: Performed By: #### A MM #### [facility] [address] [place] [address] [address] Nilay Gibbs MONO # 1.3 103/ul Critically high 0.3-0.8 [facility] Comment on above: Performed By: #### A MM #### [facility] [address] [place] [address] [address] Nilay Gibbs Monocytes/100 WBC (Bld) 10.9 % Normal 1.7-12.0 [facility] Comment on above: Performed By: #### A MM #### [facility] [address] [place] [address] [address] Nilay Gibbs NEUT # 8.7 103/ul Critically high 1.4-6.5 [facility] Comment on above: Performed By: #### A MM #### [facility] [address] [place] [address] Dr. Nilay Gibbs Neutrophils/100 WBC (Bld) 73.8 % Normal 43.0-75.0 [facility] Comment on above: Performed By: #### A MM #### [facility] [address] [place] [address] [address] Nilay Gibbs Platelet mean volume (Bld) [Entitic vol] 10.9 fL Normal 9.5-13.5 [facility] Comment on above: Performed By: #### A MM #### [facility] [address] [place] [address] [address] Nilay Gibbs PLT 171 103/ul Normal 150-450 [facility] Comment on above: Performed By: #### A MM #### [facility] [address] [address] [address] Nilay Gibbs RBC 4.49 106/ul Critically low 4.70-6.10 [facility] Comment on above: Performed By: #### A MM #### [facility] [address] [place] [address] [address] Nilay Gibbs WBC 11.7 103/ul Critically high 4.0-11.0 [facility] Comment on above: Performed By: #### A MM #### [facility] [address] [place] [address] Dr. Nilay Gibbs CRPon 06-20-2022 CRP 25.4 mg/dL Critically high <=1.0 [facility] Comment on above: Performed By: #### C RP, CMP #### [facility] [address] [place] [address] Dr. Nialy Gibbs CULTURE BLOODon 06-20-2022 Microscopic examination of blood, culture Culture Observations: NO GROWTH AT 5 DAYS. Normal [facility] Comment on above: Performed By: #### C MP #### [facility] [address] [place] [address] Dr. Nilay Gibbs Microscopic examination of blood, culture Culture Observations: NO GROWTH AT 5 DAYS. [facility] Comment on above: Performed By: #### C MP #### [facility] [address] [place] [address] Dr. Nilay Gibbs LACTATE/LACTIC ACIDon 2022 Lactate [Moles/Vol] 0.7 mmol/L Normal 0.4-2.0 [facility] Comment on above: Performed By: #### A MM #### [facility] [address] [place] [address] Dr. Nilay Gibbs PROF 14(COMP METB)on 023 Albumin [Mass/Vol] 3.8 g/dL Normal 3.4-5.0 [facility] Comment on above: Performed By: #### C RP, CMP #### [facility] [address] [place] [address] Dr. Nilay Gibbs Albumin/Globulin [Mass ratio] 1.1 {ratio} [facility] Comment on above: Performed By: #### C RP, CMP #### [facility] [address] [place] [address] Dr. Nilay Gibbs ALP [Catalytic activity/Vol] 85 U/L Normal 46-116 [facility] Comment on above: Performed By: #### C RP, CMP #### [facility] [address] [place] [address] Dr. Nilay Gibbs ALT [Catalytic activity/Vol] 29 U/L Normal 16-63 [facility] Comment on above: Performed By: #### C RP, CMP #### [facility] [address] [place] [address] Dr. Nilay Gibbs Anion gap [Moles/Vol] 15.2 mmol/L Normal [facility] Comment on above: Performed By: #### C RP, CMP #### [facility] [address] [place] [address] Dr. Nialy Gibbs AST [Catalytic activity/Vol] 20 U/L Normal 15-37 [facility] Comment on above: Performed By: #### C RP, CMP #### [facility] [address] [place] [address] Dr. Nilay Gibbs Bilirubin [Mass/Vol] 1.1 mg/dL Critically high 0.2-1.0 [facility] Comment on above: Performed By: #### C RP, CMP #### [facility] [address] [place] [address] Dr. Nilay Gibbs Calcium [Mass/Vol] 9.4 mg/dL Normal 8.5-10.1 [facility] Comment on above: Performed By: #### C RP, CMP #### [facility] [address] [place] [address] Dr. Nilay Gibbs Chloride [Moles/Vol] 99 mmol/L Normal 98-107 [facility] Comment on above: Performed By: #### C RP, CMP #### [facility] [address] [place] [address] Dr. Nilay Gibbs CO2 [Moles/Vol] 25.7 mmol/L Normal 21.0-32.0 [facility] Comment on above: Performed By: #### C RP, CMP #### [facility] [address] [place] [address] Dr. Nilay Gibbs Creatinine [Mass/Vol] 1.32 mg/dL Critically high 0.70-1.30 [facility] Comment on above: Performed By: #### C RP, CMP #### [facility] [address] [place] [address] Dr. Nilay Gibbs EGFR-AF FILIPINO >60 Normal >=60 [facility] Comment on above: Performed By: #### C RP, CMP #### [facility] [address] [place] [address] Dr. Nilay Gibbs EGFR-NON AF FILIPINO >60 Normal >=60 [facility] Comment on above: Performed By: #### C RP, CMP #### [facility] [address] [address] [address] Nilay Gibbs Globulin (S) [Mass/Vol] 3.6 g/dL Normal [facility] Comment on above: Performed By: #### C RP, CMP #### [facility] [address] [address] [address] Nilay Gibbs Glucose [Mass/Vol] 106 mg/dL Normal 74-106 [facility] Comment on above: Performed By: #### C RP, CMP #### [facility] [address] [place] [address] Dr. Nilay Gibbs Potassium [Moles/Vol] 3.9 mmol/L Normal 3.5-5.1 [facility] Comment on above: Performed By: #### C RP, CMP #### [facility] [address] [place] [address] Dr. Nilay Gibbs Protein [Mass/Vol] 7.4 g/dL Normal 6.4-8.2 [facility] Comment on above: Performed By: #### C RP, CMP #### [facility] [address] [place] [address] Dr. Nilay Gibbs Sodium [Moles/Vol] 136 mmol/L Normal 136-145 [facility] Comment on above: Performed By: #### C RP, CMP #### [facility] [address] [address] [address] Nilay Gibbs Urea nitrogen [Mass/Vol] 10.0 mg/dL Normal 7.0-18.0 [facility] Comment on above: Performed By: #### C RP, CMP #### [facility] [address] [place] [address] [address] Nilay Gibbs Urea nitrogen/Creatinine [Mass ratio] 7.6 mg/mg Normal [facility] Comment on above: Performed By: #### C RP, CMP #### [facility] [address] [place] [address] [address] Nilay Gibbs SED [facility]ATE [facility] 2022 SED RATE 46 mm/hr Critically high <=15 [facility] Comment on above: Performed By: #### S EDR #### [facility] [address] [address] [address] Nilay Gibbs Covid-19 PCR ([facility])on SARS-CoV-2 (COVID-19) RNA TALHA+probe Ql (Unsp spec) Not detected Normal NOT DETECTED [facility] Comment on above: Result Comment: When [...] for this test is supported by the Chief Technician [employer] and Human Service's declaration that [...] used). Performed By: #### A MM #### [facility] [address] [place], [place] [id number] Dr. Nilay Gibbs INFLUENZA A AND B AGon 01-31 INFLUANEGH SEE BELOW Normal [facility] Comment on above: Result Comment: Nega tive for Flu A protein angiten. Infection due to Flu A cannot be ruled out. Flu A angiten in the sample may be below the detection limit of the test. Performed By: #### A MM #### [facility] [address] [address] [address] Nilay Gibbs INFLUBNEGH SEE BELOW Normal [facility] Comment on above: Result Comment: Nega tive for Flu B protein antigen. Infection due to Flu B cannot be ruled out. Flu B antigen in the sample may be below the detection limit of the test. Performed By: #### A MM #### [facility] [address] [address] [address] Nilay Gibbs INFLUENZA A AG Negative Normal NEGATIVE SEE COMMENT [facility] Comment on above: Performed By: #### A MM #### [facility] [address] [address] [address] Nilay Gibbs INFLUENZA B AG Negative Normal NEGATIVE SEE COMMENT [facility] Comment on above: Performed By: #### A MM #### [facility] [address] [address] [address] Nilay Gibbs INTERNAL CONTROLS Within Normal Limits Normal Wi thin Normal Limits [facility] Comment on above: Performed By: #### A MM #### [facility] [address] [address] [address] Nilay Gibbs Cholesterol [Mass/volume] in Serum or PlasmaOrdered By: Adam Young on 12-08-2021 Cholesterol [Mass/Vol] 205 mg/dL 140-200 [facility] Comment on above: Chol less than 200 m g/dl low riskChol 201-239 mg/dl borderline riskChol 240 mg/dl and greater high risk Cholesterol in LDL Calc [Mas s/Vol]Ordered By: Adam Young on 12-08-2021 Cholesterol in LDL [Mass/Vol] 120 mg/dL 0-100 [facility] Comment on above: LDL ATP III CLASSIFI CATIONLDL less than 100 mg/dL OptimalLDL 100-129 mg/dL Near or above optimalLDL 130-159 mg/dL Borderline highLDL 160-189 mg/dL HighLDL greater than 189 mg/dL Very high Cholesterol in VLDL Calc [Ma ss/Vol]Ordered By: Adam Young on 12-08-2021 Cholesterol in VLDL [Mass/Vol] 37 mg/dL [facility] No Panel InformationOrdered By: Adam Young on 12-08-2021 25-Hydroxy Vitamin D Total 50.6 ng/mL 30-100 [facility] Comment on above: VITAMIN D STATUS [...] Cholesterol in HDL [Mass/Vol] 47 mg/dL 29-71 [facility] Comment on above: HDL CHOL ATP-III CLA SSIFICATION Cardiovascular RiskHDL > or equal to 60 mg/dL LOWHDL < 40 mg/dL HIGH Serum or plasma total choles terol/high density lipoprotein (HDL) cholesterol mass ratOrdered By: Adam Young on 12-08-2021 Cholesterol.total/Ch olesterol in HDL [Mass ratio] 4.4 {ratio} <5.0 [facility] TSH DL <= 0.005 mIU/L QnOrde red By: Adam Young on 12-08-2021 TSH Qn 0.75 m[IU]/L 0.45-5.33 [facility] Triglyceride [Mass/volume] i n Serum or PlasmaOrdered By: Adam Young on 12-08-2021 Triglyceride [Mass/Vol] 188 mg/dL 35-149 [facility] Comment on above: TRIG ATP III CLASSIF ICATIONTRIG less than 150 mg/dL NormalTRIG 150-199 mg/dL Borderline highTRIG 200-500 mg/dL High TRIG greater than 500 mg/dL Very highStandard traceable to the Center for Disease Conrtrol and Prevention (CDC) test method. Covid-19 PCR (CVDTB)on SARS-CoV-2 (COVID-19) RNA TALHA+probe Ql (Unsp spec) Not detected Normal NOT DETECTED [facility] Comment on above: Result Comment: When [...] for this test is supported by the [place] [facility] [employer]'s declaration that [...] used). Performed By: #### C MP #### [facility] [address] [place] [address] Dr. Nilay Gibbs ETHANOL (BLD ALC)on 12-08-19 Ethanol [Mass/Vol] 288 mg/dL Normal [facility] Comment on above: Performed By: #### C MP #### [facility] [address] [place] [address] Dr. Nilay Gibbs ALC NOTE NOTE: 80 mg/dl is th e legal limit for a blood alcohol level Normal [facility] Comment on above: Performed By: #### C MP #### [facility] [address] [place] [address] Dr. Nilay Gibbs Performed By: #### A MM #### [facility] [address] [place] [address] Dr. Nilay Gibbs Ethanol [Mass/Vol] 130 mg/dL Normal [facility] Comment on above: Performed By: #### A MM #### [facility] [address] [place] [address] Dr. Nilay Gibbs Ethanol [Mass/Vol] 196 mg/dL Normal [facility] Comment on above: Performed By: #### A MM #### [facility] [address] [place] [address] Dr. Nilay Gibbs ACETAMINOPHENon 12-06-2021 Acetaminophen [Mass/Vol] ug/mL Critically low 10.0-30.0 [facility] Comment on above: Performed By: #### A CET #### [facility] [address] [address] [address] Nilay Gibbs AMMONIAon 12-06-2021 Ammonia (P) [Moles/Vol] 22 umol/L Normal 11-32 [facility] Comment on above: Performed By: #### A MM #### [facility] [address] [place] [address] Dr. Nilay Gibbs CBC AUTO DIFFon 12-06-2021 BASO # 0.0 103/ul Normal 0.0-0.1 [facility] Comment on above: Performed By: #### A MM #### [facility] [address] [place] [address] Dr. Nilay Gibbs Basophils/100 WBC (Bld) 0.5 % Normal 0.2-2.0 [facility] Comment on above: Performed By: #### A MM #### [facility] [address] [place] [address] Dr. Nilay Gibbs EO # 0.1 103/ul Normal 0.0-0.7 [facility] Comment on above: Performed By: #### A MM #### [facility] [address] [place] [address] Dr. Nilay Gibbs Eosinophils/100 WBC (Bld) 1.0 % Normal 0.9-7.0 [facility] Comment on above: Performed By: #### A MM #### [facility] [address] [place] [address] Dr. Nilay Gibbs Erythrocyte distribution width (RBC) [Ratio] 12.9 % Normal 11.0-15.0 [facility] Comment on above: Performed By: #### A MM #### [facility] [address] [place] [address] Dr. Nilay Gibbs Hematocrit (Bld) [Volume fraction] 40.5 % Critically low 42.0-54.0 [facility] Comment on above: Performed By: #### A MM #### [facility] [address] [place] [address] Dr. Nilay Gibbs Hemoglobin (Bld) [Mass/Vol] 13.9 g/dL Critically low 14.0-18.0 [facility] Comment on above: Performed By: #### A MM #### [facility] [address] [place] [address] Dr. Nilay Gibbs IG # 0.02 10e3/ul Normal 0.00-0.03 [facility] Comment on above: Performed By: #### A MM #### [facility] [address] [place] [address] Dr. Nilay Gibbs IG % 0.3 % Normal 0.0-0.5 [facility] Comment on above: Performed By: #### A MM #### [facility] [address] [place] [address] Dr. Nilay Gibbs LYMPH # 2.7 103/ul Normal 1.2-3.8 [facility] Comment on above: Performed By: #### A MM #### [facility] [address] [place] [address] Dr. Nilay Gibbs Lymphocytes/100 WBC (Bld) 45.2 % Normal 20.5-60.0 [facility] Comment on above: Performed By: #### A MM #### [facility] [address] [place] [address] Dr. Nilay Gibbs MANUAL DIFF REQ NO Normal [facility] Comment on above: Performed By: #### A MM #### [facility] [address] [place] [address] Dr. Nilay Gibbs MCH (RBC) [Entitic mass] 29.8 pg Normal 25.9-34.0 [facility] Comment on above: Performed By: #### A MM #### [facility] [address] [place] [address] Dr. Nilay Gibbs MCHC (RBC) [Mass/Vol] 34.3 g/dL Normal 29.9-35.2 [facility] Comment on above: Performed By: #### A MM #### [facility] [address] [place] [address] Dr. Nilay Gibbs MCV (RBC) [Entitic vol] 86.9 fL Normal 80.0-94.0 [facility] Comment on above: Performed By: #### A MM #### [facility] [address] [address] [address] Nilay Gibbs MONO # 0.4 103/ul Normal 0.3-0.8 [facility] Comment on above: Performed By: #### A MM #### [facility] [address] [address] [address] Nilay Gibbs Monocytes/100 WBC (Bld) 6.3 % Normal 1.7-12.0 [facility] Comment on above: Performed By: #### A MM #### [facility] [address] [place] [address] Dr. Nilay Gibbs NEUT # 2.7 103/ul Normal 1.4-6.5 [facility] Comment on above: Performed By: #### A MM #### [facility] [address] [place] [address] Dr. Nilay Gibbs Neutrophils/100 WBC (Bld) 46.7 % Normal 43.0-75.0 [facility] Comment on above: Performed By: #### A MM #### [facility] [address] [place] [address] Dr. Nilay Gibbs Platelet mean volume (Bld) [Entitic vol] 10.4 fL Normal 9.5-13.5 [facility] Comment on above: Performed By: #### A MM #### [facility] [address] [place] [address] Dr. Nilay Gibbs PLT 237 103/ul Normal 150-450 [facility] Comment on above: Performed By: #### A MM #### [facility] [address] [place] [address] Dr. Nilay Gibbs RBC 4.66 106/ul Critically low 4.70-6.10 [facility] Comment on above: Performed By: #### A MM #### [facility] [address] [place] [address] Dr. Nilay Gibbs WBC 5.9 103/ul Normal 4.0-11.0 [facility] Comment on above: Performed By: #### A MM #### [facility] [address] [place] [address] Dr. Nilay Gibbs DRUG SCREEN RAPID (URINE)on 12-06-2021 AMP Negative Normal NEGATIVE [facility] Comment on above: Performed By: #### D RUGRPD #### [facility] [address] [place] [address] Dr. Nilay Gibbs BAR Negative Normal NEGATIVE [facility] Comment on above: Performed By: #### D RUGRPD #### [facility] [address] [place] [address] Dr. Nilay Gibbs BUP Negative Normal NEGATIVE [facility] Comment on above: Performed By: #### D RUGRPD #### [facility] [address] [place] [address] Dr. Nilay Gibbs BZO Positive Abnormal NEGATIVE [facility] Comment on above: Performed By: #### D RUGRPD #### [facility] [address] [place] [address] Dr. Nilay Gibbs ROQUE Negative Normal NEGATIVE [facility] Comment on above: Performed By: #### D RUGRPD #### [facility] [address] [place] [address] Dr. Nilay Gibbs CUT-OFFS SEE BELOW Normal [facility] Comment on above: Result Comment: AMP [...] ng/mL Performed By: #### D RUGRPD #### [facility] [address] [place] [address] Dr. Nilay Gibbs DRUG CUT HEADER DRUG CLASS TEST SYST EM CUT-OFF CONCENTRATIONS ARE FOLLOWS: Normal [facility] Comment on above: Performed By: #### D RUGRPD #### [facility] [address] [place] [address] Dr. Nilay Gibbs mAMP Negative Normal NEGATIVE [facility] Comment on above: Performed By: #### D RUGRPD #### [facility] [address] [address] [address] iNlay Gibbs MTD Negative Normal NEGATIVE [facility] Comment on above: Performed By: #### D RUGRPD #### [facility] [address] [address] [address] Nilay Gibbs OPI Negative Normal NEGATIVE [facility] Comment on above: Performed By: #### D RUGRPD #### [facility] [address] [place] [address] Dr. Nilay Gibbs OXY Negative Normal NEGATIVE [facility] Comment on above: Performed By: #### D RUGRPD #### [facility] [address] [place] [address] Dr. Nilay Gibbs PCP Negative Normal NEGATIVE [facility] Comment on above: Performed By: #### D RUGRPD #### [facility] [address] [place] [address] Dr. Nilay Gibbs PPX Negative Normal NEGATIVE [facility] Comment on above: Performed By: #### D RUGRPD #### [facility] [address] [place] [address] Dr. Nilay Gibbs TCA Negative Normal NEGATIVE [facility] Comment on above: Performed By: #### D RUGRPD #### [facility] [address] [place] [address] Dr. Nilay Gibbs THC Negative Normal NEGATIVE [facility] Comment on above: Performed By: #### D RUGRPD #### [facility] [address] [place] [address] Dr. Nilay Gibbs ETHANOL (BLD ALC)on 12-07-19 ALC NOTE NOTE: 80 mg/dl is th e legal limit for a blood alcohol level Normal [facility] Comment on above: Performed By: #### C MP #### [facility] [address] [place] [address] Dr. Nilay Gibbs Ethanol [Mass/Vol] 336 mg/dL Normal [facility] Comment on above: Performed By: #### C MP #### [facility] [address] [place] [address] Dr. Nilay Gibbs PROF 14(COMP METB)on 022 Albumin [Mass/Vol] 4.2 g/dL Normal 3.4-5.0 [facility] Comment on above: Performed By: #### C MP #### [facility] [address] [place] [address] Dr. Nilay Gibbs Albumin/Globulin [Mass ratio] 1.3 {ratio} Normal [facility] Comment on above: Performed By: #### C MP #### [facility] [address] [place] [address] Dr. Nialy Gibbs ALP [Catalytic activity/Vol] 104 U/L Normal 46-116 [facility] Comment on above: Performed By: #### C MP #### [facility] [address] [place] [address] Dr. Nilay Gibbs ALT [Catalytic activity/Vol] 41 U/L Normal 16-63 [facility] Comment on above: Performed By: #### C MP #### [facility] [address] [place] [address] Dr. Nilay Gibbs Anion gap [Moles/Vol] 11.5 mmol/L Normal [facility] Comment on above: Performed By: #### C MP #### [facility] [address] [place] [address] Dr. Nilay Gibbs AST [Catalytic activity/Vol] 37 U/L Normal 15-37 [facility] Comment on above: Performed By: #### C MP #### [facility] [address] [place] [address] Dr. Nilay Gibbs Bilirubin [Mass/Vol] 0.2 mg/dL Normal 0.2-1.0 [facility] Comment on above: Performed By: #### C MP #### [facility] [address] [place] [address] Dr. Nilay Gibbs Calcium [Mass/Vol] 8.6 mg/dL Normal 8.5-10.1 [facility] Comment on above: Performed By: #### C MP #### [facility] [address] [address] [address] Nilay Gibbs Chloride [Moles/Vol] 97 mmol/L Critically low 98-107 [facility] Comment on above: Performed By: #### C MP #### [facility] [address] [address] [address] Nilay Gibbs CO2 [Moles/Vol] 26.0 mmol/L Normal 21.0-32.0 [facility] Comment on above: Performed By: #### C MP #### [facility] [address] [address] [address] Nilay Gibbs Creatinine [Mass/Vol] 1.47 mg/dL Critically high 0.70-1.30 [facility] Comment on above: Performed By: #### C MP #### [facility] [address] [place] [address] Dr. Nilay Gibbs EGFR-AF FILIPINO >60 Normal >=60 [facility] Comment on above: Performed By: #### C MP #### [facility] [address] [address] [address] Nilay Gibbs EGFR-NON AF FILIPINO 56 mL/min/1.73m2 Critically low >=60 [facility] Comment on above: Performed By: #### C MP #### [facility] [address] [address] [address] Nilay Gibbs Globulin (S) [Mass/Vol] 3.2 g/dL Normal [facility] Comment on above: Performed By: #### C MP #### [facility] [address] [address] [address] Nilay Gibbs Glucose [Mass/Vol] 117 mg/dL Critically high 74-106 [facility] Comment on above: Performed By: #### C MP #### [facility] [address] [address] [address] Nilay Gibbs Potassium [Moles/Vol] 3.5 mmol/L Normal 3.5-5.1 [facility] Comment on above: Performed By: #### C MP #### [facility] [address] [address] [address] Nilay Gibbs Protein [Mass/Vol] 7.4 g/dL Normal 6.4-8.2 [facility] Comment on above: Performed By: #### C MP #### [facility] [address] [address] [address] Nilay Gibbs Sodium [Moles/Vol] 131 mmol/L Critically low 136-145 [facility] Comment on above: Performed By: #### C MP #### [facility] [address] [address] [address] Nilay Gibbs Urea nitrogen [Mass/Vol] 14.0 mg/dL Normal 7.0-18.0 [facility] Comment on above: Performed By: #### C MP #### [facility] [address] [address] [address] Nilay Gibbs Urea nitrogen/Creatinine [Mass ratio] 9.5 mg/mg Normal [facility] Comment on above: Performed By: #### C MP #### [facility] [address] [address] [address] Nilay Gibbs SALICYLATEon 12-06-2021 SALICYLATE <2.8 Normal <=19.9 [facility] Comment on above: Performed By: #### A MM #### [facility] [address] [address] [address] Nilay Gibbs MRI Shoulder w/o Lefton [...] by Stephen Ware on 11/11/2021 0955 Normal [facility] Activated partial thrombopla stin time (aPTT) in platelet poor plasma by coagulation aOrdered By: Kristal Goldberg on 09-27-2021 aPTT Coag (PPP) [Time] 34.7 s 25.1-36.5 [facility] Albumin [Mass/volume] in Ser um or PlasmaOrdered By: Kristal Goldberg on 09-27-2021 Albumin [Mass/Vol] 4.1 g/dL 3.2-5.5 [facility] Basophils Auto (Bld) [#/Vol] Ordered By: Kristal Goldberg on 09-27-2021 Basophils (Bld) [#/Vol] 0.0 10*3/uL 0.0-0.2 [facility] Basophils/100 WBC Auto (Bld) Ordered By: Kristal Goldberg on 09-27-2021 Basophils/100 WBC (Bld) 0.3 % . [facility] Bilirubin Auto test strip Ql (U)Ordered By: Kristal Goldberg on 09-27-2021 Bilirubin Ql (U) Negative Negative [facility] Blood hemoglobin measurement (mass/volume)Ordered By: Kristal Goldberg on 09-27-2021 Hemoglobin (Bld) [Mass/Vol] 13.6 g/dL 13.0-17.0 [facility] Blood leukocytes automated c ount (number/volume)Ordered By: Kristal Goldberg on 09-27-2021 WBC (Bld) [#/Vol] 5.7 10*3/uL 4.5-11.0 [facility] CBC AUTO DIFFon 09-27-2021 BASO # 0.0 103/ul Normal 0.0-0.1 [facility] Comment on above: Performed By: #### A MM #### [facility] [address] [address] [address] Nilay Gibbs Basophils/100 WBC (Bld) 0.5 % Normal 0.2-2.0 [facility] Comment on above: Performed By: #### A MM #### [facility] [address] [address] [address] Nilay Gibbs EO # 0.1 103/ul Normal 0.0-0.7 [facility] Comment on above: Performed By: #### A MM #### [facility] [address] [place] [address] Dr. Nilay Gibbs Eosinophils/100 WBC (Bld) 1.6 % Normal 0.9-7.0 [facility] Comment on above: Performed By: #### A MM #### [facility] [address] [place] [address] Dr. Nilay Gibbs Erythrocyte distribution width (RBC) [Ratio] 14.0 % Normal 11.0-15.0 [facility] Comment on above: Performed By: #### A MM #### [facility] [address] [place] [address] Dr. Nilay Gibbs Hematocrit (Bld) [Volume fraction] 40.2 % Critically low 42.0-54.0 [facility] Comment on above: Performed By: #### A MM #### [facility] [address] [place] [address] Dr. Nilay Gibbs Hemoglobin (Bld) [Mass/Vol] 13.7 g/dL Critically low 14.0-18.0 [facility] Comment on above: Performed By: #### A MM #### [facility] [address] [place] [address] Dr. Nilay Gibbs IG # 0.01 10e3/ul Normal 0.00-0.03 [facility] Comment on above: Performed By: #### A MM #### [facility] [address] [place] [address] Dr. Nilay Gibbs IG % 0.2 % Normal 0.0-0.5 [facility] Comment on above: Performed By: #### A MM #### [facility] [address] [place] [address] Dr. Nilay Gibbs LYMPH # 2.1 103/ul Normal 1.2-3.8 [facility] Comment on above: Performed By: #### A MM #### [facility] [address] [place] [address] Dr. Nilay Gibbs Lymphocytes/100 WBC (Bld) 37.1 % Normal 20.5-60.0 [facility] Comment on above: Performed By: #### A MM #### [facility] [address] [place] [address] Dr. Nilay Gibbs MANUAL DIFF REQ NO Normal [facility] Comment on above: Performed By: #### A MM #### [facility] [address] [place] [address] Dr. Nilay Gibbs MCH (RBC) [Entitic mass] 30.1 pg Normal 25.9-34.0 [facility] Comment on above: Performed By: #### A MM #### [facility] [address] [place] [address] Dr. Nilay Gibbs MCHC (RBC) [Mass/Vol] 34.1 g/dL Normal 29.9-35.2 [facility] Comment on above: Performed By: #### A MM #### [facility] [address] [place] [address] Dr. Nilay Gibbs MCV (RBC) [Entitic vol] 88.4 fL Normal 80.0-94.0 [facility] Comment on above: Performed By: #### A MM #### [facility] [address] [place] [address] Dr. Nilay Gibbs MONO # 0.4 103/ul Normal 0.3-0.8 [facility] Comment on above: Performed By: #### A MM #### [facility] [address] [place] [address] Dr. Nilay Gibbs Monocytes/100 WBC (Bld) 7.2 % Normal 1.7-12.0 [facility] Comment on above: Performed By: #### A MM #### [facility] [address] [place] [address] Dr. Nilay Gibbs NEUT # 3.1 103/ul Normal 1.4-6.5 [facility] Comment on above: Performed By: #### A MM #### [facility] [address] [place] [address] Dr. Nilay Gibbs Neutrophils/100 WBC (Bld) 53.4 % Normal 43.0-75.0 [facility] Comment on above: Performed By: #### A MM #### [facility] [address] [place] [address] Dr. Nilay Gibbs Platelet mean volume (Bld) [Entitic vol] 10.3 fL Normal 9.5-13.5 [facility] Comment on above: Performed By: #### A MM #### [facility] [address] [place] [address] Dr. Nilay Gibbs PLT 254 103/ul Normal 150-450 [facility] Comment on above: Performed By: #### A MM #### [facility] [address] [place] [address] Dr. Nilay Gibbs RBC 4.55 106/ul Critically low 4.70-6.10 [facility] Comment on above: Performed By: #### A MM #### [facility] [address] [place] [address] Dr. Nilay Gibbs WBC 5.7 103/ul Normal 4.0-11.0 [facility] Comment on above: Performed By: #### A MM #### [facility] [address] [place] [address] HEAD WO CONon [...] by: RUFINA MARIN Date: 2021-09-27 10:27 Normal [facility] CTA HEAD WO W CONon 09-28-19 [...] by: NEL KING Date: 2021-09-27 12:19 Normal [facility] CTA NECK WO W CONon 09-28-19 [...] by: NEL KING Date: 2021-09-27 12:06 Normal [facility] Creatine kinase [Enzymatic a ctivity/volume] in Serum or PlasmaOrdered By: Kristal Goldberg on 09-27-2021 CK [Catalytic activity/Vol] 181 U/L 22-269 [facility] Creatinine and Glomerular fi ltration rate.predicted panel (S/P/Bld)Ordered By: Kristal Goldberg on 09-27-2021 Creatinine [Mass/Vol] 1.36 mg/dL 0.64-1.27 [facility] Eosinophils Auto (Bld) [#/Vo l]Ordered By: Kristal Goldberg on 09-27-2021 Eosinophils (Bld) [#/Vol] 0.1 10*3/uL 0.0-0.45 [facility] Eosinophils/100 WBC Auto (Bl d)Ordered By: Kristal Goldberg on 09-27-2021 Eosinophils/100 WBC (Bld) 1.2 % . [facility] Erythrocyte distribution wid th Auto (RBC) [Ratio]Ordered By: Kristal Goldberg on 09-27-2021 Erythrocyte distribution width (RBC) [Ratio] 14.5 % 12.0-14.8 [facility] Estimated glomerular filtrat ion rate (GFR) non- AmericanOrdered By: Kristal Goldberg on 09-27-2021 GFR/1.73 sq M.predicted among non-blacks MDRD (S/P/Bld) [Vol rate/Area] > 60 mL/Min [facility] Globulin Calc (S) [Mass/Vol] Ordered By: Kristal Goldberg on 09-27-2021 Globulin (S) [Mass/Vol] 2.4 g/dL [facility] Hematocrit Auto (Bld) [Volum e fraction]Ordered By: Kristal Goldberg on 09-27-2021 Hematocrit (Bld) [Volume fraction] 40.8 % 38.8-50.0 [facility] Ketones Auto test strip (U) [Mass/Vol]Ordered By: Kristal Goldberg on 09-27-2021 Ketones (U) [Mass/Vol] Negative Negative [facility] - CoagulationOrde red By: Kristal Goldberg on 09-27-2021 PT Coag (PPP) [Time] 11.8 s 9.0-12.9 [facility] - Hematology and Cell countsOrdered By: Kristal Goldberg on 09-27-2021 Nucleated RBC/100 WBC (Bld) [Ratio] 0.0 % 0-0.5 [facility] Lymphocytes Auto (Bld) [#/Vo l]Ordered By: Kristal Goldberg on 09-27-2021 Lymphocytes (Bld) [#/Vol] 1.8 10*3/uL 1.00-4.8 [facility] Lymphocytes/100 WBC Auto (Bl d)Ordered By: Kristal Goldberg on 09-27-2021 Lymphocytes/100 WBC (Bld) 31.2 % . [facility] MCH Auto (RBC) [Entitic mass ]Ordered By: Kristal Goldberg on 09-27-2021 MCH (RBC) [Entitic mass] 30.1 pg 27.5-35.2 [facility] MCHC Auto (RBC) [Mass/Vol]Or dered By: Kristal Goldberg on 09-27-2021 MCHC (RBC) [Mass/Vol] 33.4 g/dL 32.5-35.6 [facility] MCV Auto (RBC) [Entitic vol] Ordered By: Kristal Goldberg on 09-27-2021 MCV (RBC) [Entitic vol] 90.3 fL 83.5-101 [facility] Monocytes Auto (Bld) [#/Vol] Ordered By: Kristal Goldberg on 09-27-2021 Monocytes (Bld) [#/Vol] 0.3 10*3/uL 0.0-0.8 [facility] Monocytes/100 WBC Auto (Bld) Ordered By: Kristal Goldberg on 09-27-2021 Monocytes/100 WBC (Bld) 6.0 % . [facility] Neutrophils Auto (Bld) [#/Vo l]Ordered By: Kristal Goldberg on 09-27-2021 Neutrophils (Bld) [#/Vol] 3.5 10*3/uL 1.8-7.7 [facility] Neutrophils/100 WBC Auto (Bl d)Ordered By: Kristal Goldberg on 09-27-2021 Neutrophils/100 WBC (Bld) 61.3 % . [facility] No Panel InformationOrdered By: Kristal Goldberg on 09-27-2021 Estimated GFR () > 60 mL/Min [facility] Comment on above: GFR estimated refere nce range: According to KDOQI guidelines, <60 ml/min/1.73m2 is sufficient to diagnose a patient with chronic kidney disease. Pharmacy Creatinine Clearance (Chem 94.06 [facility] PROF CHEM 8 (BAS METB)on Anion gap [Moles/Vol] 10.0 mmol/L Normal [facility] Comment on above: Performed By: #### C MP #### [facility] [address] [address] [address] Nilay Gibbs Calcium [Mass/Vol] 9.4 mg/dL Normal 8.5-10.1 [facility] Comment on above: Performed By: #### C MP #### [facility] [address] [place] [address] Dr. Nilay Gibbs Chloride [Moles/Vol] 103 mmol/L Normal 98-107 [facility] Comment on above: Performed By: #### C MP #### [facility] [address] [address] [address] Nilay Gibbs CO2 [Moles/Vol] 27.6 mmol/L Normal 21.0-32.0 [facility] Comment on above: Performed By: #### C MP #### [facility] [address] [place] [address] Dr. Nilay Gibbs Creatinine [Mass/Vol] 1.39 mg/dL Critically high 0.70-1.30 [facility] Comment on above: Performed By: #### C MP #### [facility] [address] [address] [address] Nilay Gibbs EGFR-AF FILIPINO >60 Normal >=60 [facility] Comment on above: Performed By: #### C MP #### [facility] [address] [address] [address] Nilay Gibbs EGFR-NON AF FILIPINO 60 mL/min/1.73m2 Normal >=60 [facility] Comment on above: Performed By: #### C MP #### [facility] [address] [address] [address] Nilay Gibbs Glucose [Mass/Vol] 115 mg/dL Critically high 74-106 [facility] Comment on above: Performed By: #### C MP #### [facility] [address] [address] [address] Nilay Gibbs Potassium [Moles/Vol] 3.6 mmol/L Normal 3.5-5.1 [facility] Comment on above: Performed By: #### C MP #### [facility] [address] [place] [address] Dr. Nilay Gibbs Sodium [Moles/Vol] 137 mmol/L Normal 136-145 [facility] Comment on above: Performed By: #### C MP #### [facility] [address] [place] [address] Dr. Nilay Gibbs Urea nitrogen [Mass/Vol] 17.0 mg/dL Normal 7.0-18.0 [facility] Comment on above: Performed By: #### C MP #### [facility] [address] [place] [address] Dr. Nilay Gibbs Urea nitrogen/Creatinine [Mass ratio] 12.2 mg/mg Normal [facility] Comment on above: Performed By: #### C MP #### [facility] [address] [place] [address] Dr. Nilay Gibbs PROTIMEon 09-27-2021 INR Coag (PPP) [Relative time] 0.99 {INR} Normal [facility] Comment on above: Performed By: #### P T, PTT #### [facility] [address] [place] [address] Dr. Nilay Gibbs INR GUIDELINES SEE BELOW Normal [facility] Comment on above: Result Comment: PETRONA RED INR: 2.0 - 3.0 CONDITIONS NOT LISTED BELOW 2.5 - 3.5 FOR PROSTHETIC HEART VALVE REPLACEMENT 2.5 - 3.5 RECURRENT THROMBOSIS Performed By: #### P T, PTT #### [facility] [address] [place] [address] Dr. Nilay Gibbs PT Coag (PPP) [Time] 10.7 s Normal 9.0-11.6 [facility] Comment on above: Performed By: #### P T, PTT #### [facility] [address] [place] [address] Dr. Nilay Gibbs PTTon 09-27-2021 aPTT Coag (Bld) [Time] 29.1 s Normal 22.3-36.2 [facility] Comment on above: Performed By: #### P T, PTT #### [facility] [address] [place], [place] [address] Dr. Nilay Gibbs Platelet mean volume Auto (B ld) [Entitic vol]Ordered By: Kristal Goldberg on 09-27-2021 Platelet mean volume (Bld) [Entitic vol] 8.7 fL 6.6-10.1 [facility] Platelet poor plasma interna tional normalized ratio (INR) by coagulation assay (relatOrdered By: Kristal Goldberg on 09-27-2021 INR Coag (PPP) [Relative time] 1.1 {INR} [facility] Comment on above: INR Therapeutic Rang [...] 09-27-2021 Platelets (Bld) [#/Vol] 240 10*3/uL 150-450 [facility] Protein Auto test strip (U) [Mass/Vol]Ordered By: Kristal Goldberg on 09-27-2021 Protein (U) [Mass/Vol] Negative Negative [facility] Protein [Mass/volume] in Ser um or PlasmaOrdered By: Kristal Goldberg on 09-27-2021 Protein [Mass/Vol] 6.5 g/dL 6.1-7.9 [facility] RBC Auto (Bld) [#/Vol]Ordere d By: Kristal Goldberg on 09-27-2021 RBC (Bld) [#/Vol] 4.52 10*6/uL 3.90-5.60 [facility] Serum or plasma alanine marquez otransferase measurement without P-5'-P (enzymatic activiOrdered By: Kristal Goldberg on 09-27-2021 ALT No additional P-5'-P [Catalytic activity/Vol] 22 U/L 10-60 [facility] Serum or plasma albumin/glob ulin mass ratioOrdered By: Kristal Goldberg on 09-27-2021 Albumin/Globulin [Mass ratio] 1.7 {ratio} [facility] Serum or plasma alkaline kimi sphatase measurement (enzymatic activity/volume)Ordered By: Kristal Goldberg on 09-27-2021 ALP [Catalytic activity/Vol] 72 U/L 32-92 [facility] Serum or plasma aspartate am inotransferase measurement (enzymatic activity/volume)Ordered By: Kristal Goldberg on 09-27-2021 AST [Catalytic activity/Vol] 24 U/L 10-42 [facility] Serum or plasma calcium isabel urement (mass/volume)Ordered By: Kristal Goldberg on 09-27-2021 Calcium [Mass/Vol] 9.6 mg/dL 8.2-10.2 [facility] Serum or plasma chloride airam surement (moles/volume)Ordered By: Kristal Goldberg on 09-27-2021 Chloride [Moles/Vol] 98 mmol/L 95-114 [facility] Serum or plasma creatine kin ase MB (CKMB)/total creatine kinase (CK) ratio by calculaOrdered By: Kristal Goldberg on 09-27-2021 CK.MB Calc [Catalytic fraction] 1.7 % 0.00-2.50 [facility] Serum or plasma creatine kin ase MB measurement (mass/volume)Ordered By: Kristal Goldberg on 09-27-2021 CK.MB [Mass/Vol] 3.1 ng/mL 0.6-6.3 [facility] Serum or plasma glucose isabel urement (mass/volume)Ordered By: Kristal Goldberg on 09-27-2021 Glucose [Mass/Vol] 94 mg/dL 70-100 [facility] Comment on above: ADA recommended refe [...] on 09-27-2021 Potassium [Moles/Vol] 3.9 mmol/L 3.5-5.1 [facility] Serum or plasma sodium measu rement (moles/volume)Ordered By: Kristal Lermanmebony on 09-27-2021 Sodium [Moles/Vol] 135 mmol/L 136-146 [facility] Serum or plasma total biliru bin measurement (mass/volume)Ordered By: Kristal Goldberg on 09-27-2021 Bilirubin [Mass/Vol] 0.8 mg/dL 0.3-1.2 [facility] Serum or plasma total carbon dioxide measurement (moles/volume)Ordered By: Kristal Goldberg on 09-27-2021 CO2 [Moles/Vol] 24.8 mmol/L 22.0-30.0 [facility] Serum or plasma urea nitroge n measurement (mass/volume)Ordered By: Kristal Goldberg on 09-27-2021 Urea nitrogen [Mass/Vol] 13 mg/dL 9-23 [facility] TROPONIN, HIGH SENSITIVITYon 09-27-2021 HSTROP 4.5 pg/mL Normal 4.0-76.1 [facility] Comment on above: Result Comment: CUT- OFF POINTS HAVE BEEN ESTABLISHED BASED ON THE FOURTH UNIVERSAL DEFINITIONS OF MYOCARDIAL INFARCTION. THE UPPER REFERENCE LIMIT (URL) OF TROPONIN, DEFINED THE 99TH PERCENTILE OF cTnI DISTRIBUTION IN A REFERENCE POPULATION, HAS BEEN CONFIRMED THE DECISION THRESHOLD FOR [place] DIAGNOSIS. Performed By: #### C MP #### [facility] [address] [place] [address] Dr. Nilay Gibbs Troponin I.cardiac [Mass/vol ume] in Serum or Plasma by High sensitivity methodOrdered By: Kristal Goldberg on 09-27-2021 Troponin I.cardiac High sensitivity method [Mass/Vol] < 3 pg/mL 0-20 [facility] Urine appearanceOrdered By: Kristal Goldberg on 09-27-2021 Appearance (U) Clear Clear [facility] Urine colorOrdered By: Aurora Goldberg on 09-27-2021 Color (U) Yellow Yellow [facility] Urine glucose measurement by automated test strip (mass/volume)Ordered By: Kristal Goldberg on 09-27-2021 Glucose Auto test strip (U) [Mass/Vol] Normal mg/dL Normal [facility] Urine hemoglobin detection b y automated test stripOrdered By: Kristal Goldberg on 09-27-2021 Hemoglobin Auto test strip Ql (U) Negative Negative [facility] Urine leukocyte esterase det ection by automated test stripOrdered By: Kristal Goldberg on 09-27-2021 Leukocyte esterase Auto test strip Ql (U) Negative Negative [facility] Urine nitrite detection by a utomated test stripOrdered By: Kristal Goldberg on 09-27-2021 Nitrite Auto test strip Ql (U) Negative Negative [facility] Urobilinogen Auto test strip (U) [Mass/Vol]Ordered By: Kristal Goldberg on 09-27-2021 Urobilinogen (U) [Mass/Vol] Normal mg/dL Normal [facility] pH Auto test strip (U)Ordere d By: Kristal Goldberg on 09-27-2021 pH (U) 1.005 [pH] 1.001-1.030 [facility] pH (U) 5.5 [pH] 5.0-9.[address] [facility] [address] LUMBAR SPINE WO CONTRASTo n [...] Mike Felipe MD 07/12/18 Final result Normal [facility] CT THORACIC SPINE WO CONTRAS Ton [...] Mike Felipe MD 07/12/18 Final result Normal [facility] Vital Signs Date Time Vital Sign Value Performing Clinician Facility 04-20-2024 10:02-0500 Body height 188 cm Marina Hemmer PA Work Phone: [facility] 04-20-2024 10:02-0500 Body mass index (BMI) [Ratio] 29.99 kg/m2 Marina Hemmer PA Work Phone: [facility] 04-20-2024 10:02-0500 Body weight 105.96 kg Marina Hemmer PA Work Phone: [facility] 04-20-2024 10:02-0500 Diastolic blood pressure 116 mm[Hg] Marina Hemmer PA Work Phone: [facility] 04-20-2024 10:02-0500 Heart rate 87 /min Marina Hemmer PA Work Phone: [facility] 02-20-2025 10:02-0500 Respiratory rate 16 /min Marina Hemmer PA Work Phone: [facility] 04-20-2024 10:02-0500 SaO2% (BldA) [Mass fraction] 98 % Marina Hemmer PA Work Phone: [facility] 04-20-2024 10:02-0500 Systolic blood pressure 158 mm[Hg] Marina Hemmer PA Work Phone: [facility] 01-21-2024 08:48-0500 Body height 188 cm Marina Hemmer PA Work Phone: [facility] 01-21-2024 08:48-0500 Body mass index (BMI) [Ratio] 31.35 kg/m2 Marina Hemmer PA Work Phone: [facility] 01-21-2024 08:48-0500 Body weight 110.77 kg Marina Hemmer PA Work Phone: [facility] 01-21-2024 08:48-0500 Diastolic blood pressure 101 mm[Hg] Marina Hemmer PA Work Phone: [facility] 01-21-2024 08:48-0500 Heart rate 87 /min Marina Hemmer PA Work Phone: [facility] 01-21-2024 08:48-0500 Respiratory rate 17 /min Marina Hemmer PA Work Phone: [facility] 01-21-2024 08:48-0500 SaO2% (BldA) [Mass fraction] 98 % Marina Hemmer PA Work Phone: [facility] 01-21-2024 08:48-0500 Systolic blood pressure 158 mm[Hg] Marina Hemmer PA Work Phone: [facility] 01-04-2024 08:12-0500 Body height 188 cm Delmy Boyle MD Work Phone: [facility] 01-04-2024 08:12-0500 Body mass index (BMI) [Ratio] 30.39 kg/m2 Delym Boyle MD Work Phone: [facility] 01-04-2024 08:12-0500 Body weight 107.4 kg Delmy Boyle MD Work Phone: [facility] 01-04-2024 08:12-0500 Diastolic blood pressure 77 mm[Hg] Delmy Boyle MD Work Phone: [facility] 01-04-2024 08:12-0500 Heart rate 84 /min Delmy Boyle MD Work Phone: [facility] 01-04-2024 08:12-0500 Respiratory rate 18 /min Delmy Boyle MD Work Phone: [facility] 01-04-2024 08:12-0500 Systolic blood pressure 110 mm[Hg] Delmy Boyle MD Work Phone: [facility] 08-22-2023 12:40-0400 Body height 190.5 cm MD Leydi Aceves Work Phone: [facility] 08-22-2023 12:40-0400 Body mass index (BMI) [Ratio] 31.6 kg/m2 MD Leydi Aceves Work Phone: [facility] 08-22-2023 12:40-0400 Body temperature 98.6 [degF] MD Leydi Aceves Work Phone: [facility] 08-22-2023 12:40-0400 Body weight 114.81 kg MD Leydi Aceves Work Phone: [facility] 08-22-2023 12:40-0400 Heart rate 84 /min MD Leydi Aceves Work Phone: [facility] 08-22-2023 12:40-0400 Respiratory rate 18 /min MD Leydi Aceves Work Phone: [facility] 08-22-2023 12:40-0400 SaO2% (BldA) [Mass fraction] 97 % MD Leydi Aceves Work Phone: [facility] 06-24-2023 14:34-0400 Body mass index (BMI) [Ratio] 29.92 kg/m2 Delmy Boyle MD Work Phone: [facility] 06-24-2023 14:34-0400 Body weight 105.69 kg Delmy Boyle MD Work Phone: [facility] 06-24-2023 14:34-0400 Diastolic blood pressure 87 mm[Hg] Delmy Boyle MD Work Phone: [facility] 06-24-2023 14:34-0400 Heart rate 89 /min Delmy Boyle MD Work Phone: [facility] 06-24-2023 14:34-0400 Respiratory rate 18 /min Delmy Boyle MD Work Phone: [facility] 06-24-2023 14:34-0400 SaO2% (BldA) [Mass fraction] 100 % Delmy Boyle MD Work Phone: [facility] 06-24-2023 14:34-0400 Systolic blood pressure 124 mm[Hg] Delmy Boyle MD Work Phone: [facility] 01-01-2022 11:34-0400 Body weight 99.79 kg Delmy Boyle MD Work Phone: [facility] 01-01-2022 11:34-0400 Diastolic blood pressure 65 mm[Hg] Delmy Boyle MD Work Phone: [facility] 01-01-2022 11:34-0400 Heart rate 65 /min Delmy Boyle MD Work Phone: [facility] 01-01-2022 11:34-0400 Systolic blood pressure 102 mm[Hg] Delmy Boyle MD Work Phone: [facility] 12-10-2021 15:30-0400 Diastolic blood pressure 71 mm[Hg] MD Leydi Aceves Work Phone: [facility] 12-10-2021 15:30-0400 Heart rate 70 /min MD Leydi Aceves Work Phone: [facility] 12-10-2021 15:30-0400 Respiratory rate 16 /min MD Leydi Aceves Work Phone: [facility] 12-10-2021 15:30-0400 SaO2% (BldA) [Mass fraction] 98 % MD Leydi Aceves Work Phone: [facility] 12-10-2021 15:30-0400 Systolic blood pressure 113 mm[Hg] MD Leydi Aceves Work Phone: [facility] 12-10-2021 07:30-0400 Body temperature 98 [degF] MD Leydi Aceves Work Phone: [facility] 12-08-2021 15:45-0400 Body height 190.5 cm MD Leydi Aceves Work Phone: [facility] 12-08-2021 08:56-0400 Body weight 99.79 kg MD Leydi Aceves Work Phone: [facility] 09-27-2021 21:38-0400 Heart rate 68 /min MD Leydi Aceves Work Phone: [facility] 09-27-2021 21:30-0400 Diastolic blood pressure 79 mm[Hg] MD Leydi Aceves Work Phone: [facility] 09-27-2021 21:30-0400 Respiratory rate 20 /min MD Leydi Aceves Work Phone: [facility] 09-27-2021 21:30-0400 SaO2% (BldA) [Mass fraction] 100 % MD Leydi Aceves Work Phone: [facility] 09-27-2021 21:30-0400 Systolic blood pressure 135 mm[Hg] MD Leydi Aceves Work Phone: [facility] 09-27-2021 18:31-0400 Body height 190.5 cm MD Leydi Aceves Work Phone: [facility] 07-30-2022 18:31-0400 Body temperature 98 [degF] MD Leydi Aceves Work Phone: [facility] 09-27-2021 18:31-0400 Body weight 99.79 kg MD Leydi Aceves Work Phone: 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] Start: 01-04-2024 End: 01-04-2024 ambulatory DELMY BOYLE Facility:[facility] Start: 01-04-2024 End: 01-04-2024 Patient encounter procedure Delmy Boyle MD Work Phone: Rheumatology Comment on above: Chronic tophaceous g out (Primary Dx); Stage 3 chronic kidney disease, unspecified whether stage 3a or 3b CKD (HCC); Encounter for long-term (current) use of medications; Other secondary osteoarthritis of multiple sites Start: 12-30-2023 End: 12-30-2023 ambulatory DELMY BOYLE Facility:[facility] Start: 12-30-2023 End: 12-30-2023 Clinisync [...] 08-22-2023 ambulatory MD Leydi Aceves Work Phone: [facility] Work Phone: Start: 08-22-2023 End: 08-22-2023 Patient encounter procedure MD Leydi Aceves Work Phone: [facility] [place] Work Phone: Start: 08-16-2023 Refill Delmy newton MD Work Phone: Rheumatology Comment on above: Refill Request Start: 08-03-2023 Registered Recurring MD Leydi Aceves Work Phone: [facility] Start: 08-03-2023 ambulatory Nicola Castellon acility:[facility] Start: 07-06-2023 ambulatory Delmy newton MD Work Phone: Rheumatology Start: 07-06-2023 Patient encounter procedure Delmy Boyle MD Work Phone: Rheumatology Comment on above: Flare up Start: 07-05-2023 Refill Delmy newton MD Work Phone: Rheumatology Comment on above: Refill Request Start: 06-24-2023 End: 06-24-2023 ambulatory DELMY BOYLE Facility:[facility] Start: 06-24-2023 End: 06-24-2023 Patient encounter procedure Delmy Boyle MD Work Phone: Rheumatology Comment on above: Chronic tophaceous g out (Primary Dx); Encounter for long-term (current) use of medications; Stage 3 chronic kidney disease, unspecified whether stage 3a or 3b CKD (HCC); Idiopathic chronic gout of multiple sites with tophus Start: 06-21-2023 End: 06-21-2023 ambulatory DELMY BOYLE Facility:[facility] Start: 06-10-2023 End: 06-10-2023 ambulatory LEYDI ACEVES Not Available Start: 05-09-2023 End: 05-12-2023 ambulatory Nicola Leyva Facility:[facility] Start: 04-05-2023 Refill Leydi Aceves Keena Mansfield Work Phone: [facility] Start: 03-08-2023 End: 03-08-2023 ambulatory DELMY BOYLE Facility:[facility] Start: 03-04-2023 End: 03-04-2023 ambulatory DELMY BOYLE Facility:[facility] Start: 02-24-2023 End: 02-24-2023 Emergency department patient visit Ladi Huber Facility:[facility] Start: 02-19-2023 End: 02-20-2023 [facility] Start: 11-13-2022 ambulatory Delmy newton MD Work Phone: Rheumatology Comment on above: Prednisone Start: 11-13-2022 E-mail encounter fro m caregiver Delmy Boyle MD Work Phone: [facility] Start: 11-13-2022 Telephone encounter Delmy luna MD Work Phone: [facility] Comment on above: Patient Request Start: 07-24-2022 [...] stage 3a or 3b CKD ([facility]) Start: 12-19-2021 Refill Delmy newton MD Work Phone: Rheumatology Comment on above: Refill Request Start: 12-07-2021 End: 12-10-2021 Evaluation and management of inpatient MD Leydi Aceves Work Phone: [address] Start: 12-06-2021 End: 12-07-[address] LEYDI ACEVES Facility:[facility] Start: 10-19-2021 End: 10-19-2021 ambulatory ZHAO MAURER . Facility:[facility] Start: 09-27-2021 End: 09-27-2021 Emergency department patient visit MD Leydi Aceves Work Phone: [facility] Start: 09-27-2021 End: 09-27-2021 ambulatory ZHAO MAURER . 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 Start: 07-12-2018 End: 07-13-2018 Emergency department patient visit LEYDI ACEVES [facility] Procedures Date Procedure Procedure Detail Performing [...] Start: 06-01-2026 Urine microalbumin profile [facility] Start: 12-29-2024 Creatinine measurement Serum Creatinine [facility] Start: 10-30-2024 Influenza vaccination Influenza Vaccine (Season Ended) [facility] Start: 10-03-2024 End: 10-03-2024 Patient encounter procedure 10/03/2024 8:00 AM EDT Office Visit Rheumatology [address] [place], [place] [id number] [place] [address] [place], [place] [id number] Return in about 9 months (around 10/03/2024). Rheumatology Comment on above: Return in about 9 months (around ). Start: 09-25-2024 End: 12-25-2024 Alanine aminotransferase [Enzymatic activity/volume] in Serum or Plasma ALANINE AMINOTRANSFERASE / SGPT Lab Routine Chronic tophaceous gout Encounter for long-term (current) use of medications Expected: 09/25/2024 (Approximate), Expires: 12/25/2024 [facility] Comment on above: Expected: 09/25/2024 (Approximate), Expi res: 12/25/2024 Start: 09-25-2024 End: 12-25-2024 Albumin [Mass/volume] in Serum or Plasma ALBUMIN Lab Routine Chronic tophaceous gout Encounter for long-term (current) use of medications Expected: 09/25/2024 (Approximate), Expires: 12/25/2024 [facility] Comment on above: Expected: 09/25/2024 (Approximate), Expi res: 12/25/2024 Start: 09-25-2024 End: 12-25-2024 Aspartate aminotransferase [Enzymatic activity/volume] in Serum or Plasma ASPARTATE AMINOTRANSFERASE/SGOT Lab Routine Chronic tophaceous gout Encounter for long-term (current) use of medications Expected: 09/25/2024 (Approximate), Expires: 12/25/2024 [facility] Comment on above: Expected: 09/25/2024 (Approximate), Expi res: 12/25/2024 Start: 09-25-2024 End: 12-25-2024 C reactive protein [Mass/volume] in Serum or Plasma C-REACTIVE PROTEIN Lab Routine Chronic tophaceous gout Encounter for long-term (current) use of medications Expected: 09/25/2024 (Approximate), Expires: 12/25/2024 [facility] Comment on above: Expected: 09/25/2024 (Approximate), Expi res: 12/25/2024 Start: 09-25-2024 End: 12-25-2024 CBC W Auto Differential panel - Blood COMPLETE BLOOD COUNT AND DIFFERENTIAL Lab Routine Chronic tophaceous gout Encounter for long-term (current) use of medications Expected: 09/25/2024 (Approximate), Expires: 12/25/2024 [facility] Comment on above: Expected: 09/25/2024 (Approximate), Expi res: 12/25/2024 Start: 09-25-2024 End: 12-25-2024 CREATININE BLD CREATININE BLD Lab Routine Chronic tophaceous gout Encounter for long-term (current) use of medications Expected: 09/25/2024 (Approximate), Expires: 12/25/2024 [facility] Comment on above: Expected: 09/25/2024 (Approximate), Expi res: 12/25/2024 Start: 09-25-2024 End: 12-25-2024 Erythrocyte sedimentation rate SEDIMENTATION RATE, WESTERGREN Lab Routine Chronic tophaceous gout Encounter for long-term (current) use of medications Expected: 09/25/2024 (Approximate), Expires: 12/25/2024 [facility] Comment on above: Expected: 09/25/2024 (Approximate), Expi res: 12/25/2024 Start: 09-25-2024 End: 12-25-2024 Urate [Mass/volume] in Serum or Plasma URIC ACID Lab Routine Chronic tophaceous gout Encounter for long-term (current) use of medications Expected: 09/25/2024 (Approximate), Expires: 12/25/2024 [facility] Comment on above: Expected: 09/25/2024 (Approximate), Expi res: 12/25/2024 Start: 05-18-2024 End: 05-18-2024 Patient encounter procedure 05/18/2024 9:00 AM EDT Office Visit [facility] [address] [place] [address] Marina Rees PA [address] [place] [address] Arrived [facility] Comment on above: [...] [address] [place] [address] Marina Rees PA [address] [place] [address] Arrived [facility] Comment on above: Arrived Start: 03-04-2024 Creatinine measurement Serum Creatinine [facility] Start: 01-21-2024 End: 01-21-2024 Patient encounter procedure 01/21/2024 9:00 AM EST Office Visit [facility] [address] [place] [address] Marina Rees PA [address] [place] [address] [facility] Start: 01-17-2024 End: 01-17-2024 Patient encounter procedure 01/17/2024 9:15 AM EST Office Visit Orthopaedics [address] [place] [address] [place] [address] [place] [address] 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] Orthopaedics Comment on above: Other secondary osteoarthritis of multip le sites [M15.3] Start: 01-11-2024 End: 01-11-2024 Patient encounter procedure 01/11/2024 11:00 AM EST Office Visit [facility] [address] [facility] [address] [place] [id number] Leydi Aceves MD [address] [facility] [address] [place] [address] [facility] Start: 01-04-2024 End: 01-04-2024 Patient encounter procedure 01/04/2024 8:20 AM EST Office Visit Rheumatology [address] [place] [address] [place] [address] [place] [address] FU 6-7 MON WITH MD Rheumatology Comment on above: FU 6-7 MON WITH MD Start: 10-31-2023 Covid-19 Vaccine ( season) Covid-19 Vaccine ( season) [facility] Start: 10-31-2023 Influenza vaccination [facility] Start: 09-24-2023 End: 09-24-2023 Patient encounter procedure 09/24/2023 8:00 AM EDT Office Visit Rheumatology [address] [place] [facility] [place] [id number] Kelly Martell, CHOCOLATIER.SOIL EXPERT [address] [facility] [place] [id number] FU 3-4 MON WITH STEFANIA Rheumatology Comment on above: FU 3-4 MON WITH STEFANIA Start: 08-29-2023 Influenza vaccination Influenza Vaccine (#1) [facility] Comment on above: Postponed from 10/30/2022 (Other Patient Reasons) Start: 08-13-2023 Serum Creatinine Serum Creatinine [facility] Start: 03-01-2023 Behavioral Health Screening Behavioral Health Screening [facility] Start: 01-01-2023 BP CONTROLLED (<130/80) BP CONTROLLED (<130/80) [facility] Start: 10-30-2022 Covid-19 Vaccine () Covid-19 Vaccine () [facility] Start: 10-30-2022 Influenza vaccination [facility] Start: 07-13-2022 End: 09-12-2022 Alanine aminotransferase [Enzymatic activity/volume] in Serum or Plasma ALT/SGPT Lab 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 Encounter for long-term (current) use of medications Expected: 07/13/2022 (Approximate), Expires: 09/12/2022 [facility] Work Phone: Comment on above: Expected: 07/13/2022 (Approximate), Expi res: 09/12/2022 Start: 07-13-2022 End: 09-12-2022 Albumin [Mass/volume] in Serum or Plasma ALBUMIN BLD Lab 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 Encounter for long-term (current) use of medications Expected: 07/13/2022 (Approximate), Expires: 09/12/2022 [facility] Work Phone: Comment on above: Expected: 07/13/2022 (Approximate), Expi res: 09/12/2022 Start: 07-13-2022 End: 09-12-2022 Aspartate aminotransferase [Enzymatic activity/volume] in Serum or Plasma AST/SGOT BLD Lab 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 Encounter for long-term (current) use of medications Expected: 07/13/2022 (Approximate), Expires: 09/12/2022 [facility] Work Phone: Comment on above: Expected: 07/13/2022 (Approximate), Expi res: 09/12/2022 Start: 07-13-2022 End: 09-12-2022 C reactive protein [Mass/volume] in Serum or Plasma C-REACTIVE PROTEIN (CRP) Lab 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 Encounter for long-term (current) use of medications Expected: 07/13/2022 (Approximate), Expires: 09/12/2022 [facility] Work Phone: Comment on above: Expected: 07/13/2022 (Approximate), Expi res: 09/12/2022 Start: 07-13-2022 End: 09-12-2022 CBC W Auto Differential panel - Blood CBC + DIFF Lab 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 Encounter for long-term (current) use of medications Expected: 07/13/2022 (Approximate), Expires: 09/12/2022 [facility] Work Phone: Comment on above: Expected: 07/13/2022 (Approximate), Expi res: 09/12/2022 Start: 07-13-2022 End: 09-12-2022 CREATININE BLD CREATININE BLD Lab 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 Encounter for long-term (current) use of medications Expected: 07/13/2022 (Approximate), Expires: 09/12/2022 [facility] Work Phone: Comment on above: Expected: 07/13/2022 (Approximate), Expi res: 09/12/2022 Start: 07-13-2022 End: 09-12-2022 Erythrocyte sedimentation rate SED RATE WESTERGREN Lab 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 Encounter for long-term (current) use of medications Expected: 07/13/2022 (Approximate), Expires: 09/12/2022 [facility] Work Phone: Comment on above: Expected: 07/13/2022 (Approximate), Expi res: 09/12/2022 Start: 07-13-2022 End: 09-12-2022 Urate [Mass/volume] in Serum or Plasma URIC ACID BLOOD Lab 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 Start: 12-07-[address] [facility] Start: 12-07-2021 Referral to Gimp Button[employer] [facility] Start: 10-30-2021 Influenza vaccination [facility] Start: 08-19-2021 Adult depression screening assessment DEPRESSION SCREENING [facility] Start: 03-01-2021 DEPRESSION ASSESSMENT DEPRESSION ASSESSMENT [facility] Start: 2009 Hepatitis B Vaccine (1 of 3 - 19+ 3-dose series) Hepatitis B Vaccine (1 of 3 - 19+ 3-dose series) [facility] Start: 02-26-2008 ANNUAL PCP TEAM CHRONIC DISEASE VISIT ANNUAL PCP TEAM CHRONIC DISEASE VISIT [facility] Start: 02-26-2008 Anxiety Screening Anxiety Screening [facility] Start: 02-26-2008 BP CONTROLLED (<130/80) BP CONTROLLED (<130/80) [facility] Start: 02-26-2008 Depression Screening Depression Screening [facility] Start: 02-26-2008 HIV SCREENING HIV SCREENING [facility] Start: 02-26-2008 HIV screening HIV Screening [facility] Start: 1995 COVID-19 VACCINE (#1) COVID-19 VACCINE (#1) [facility] Start: 1990 COVID-19 VACCINE (#1) COVID-19 VACCINE (#1) [facility] Start: 1990 HEPATITIS B (1 of 3 - 3-dose series) HEPATITIS B (1 of 3 - 3-dose series) [facility] Start: 1990 Hepatitis B Vaccine (1 of 3 - 3-dose series) Hepatitis B Vaccine (1 of 3 - 3-dose series) [facility] End: 06-23-2024 Alanine aminotransferase [Enzymatic activity/volume] in Serum or Plasma ALANINE AMINOTRANSFERASE / SGPT Lab Routine Chronic tophaceous gout Encounter for long-term (current) use of medications Every 3 months for 5 Occurrences starting 06/24/2023 until 06/23/2024 [facility] Comment on above: Every 3 months for 5 Occurrences startin g 06/24/2023 until 06/23/2024 End: 06-23-2024 Albumin [Mass/volume] in Serum or Plasma ALBUMIN Lab Routine Chronic tophaceous gout Encounter for long-term (current) use of medications Every 3 months for 5 Occurrences starting 06/24/2023 until 06/23/2024 [facility] Comment on above: Every 3 months for 5 Occurrences startin g 06/24/2023 until 06/23/2024 End: 06-23-2024 Aspartate aminotransferase [Enzymatic activity/volume] in Serum or Plasma ASPARTATE AMINOTRANSFERASE/SGOT Lab Routine Chronic tophaceous gout Encounter for long-term (current) use of medications Every 3 months for 5 Occurrences starting 06/24/2023 until 06/23/2024 [facility] Work Phone: Comment on above: Every 3 months for 5 Occurrences startin g 06/24/2023 until 06/23/2024 End: 06-23-2024 C reactive protein [Mass/volume] in Serum or Plasma C-REACTIVE PROTEIN Lab Routine Chronic tophaceous gout Encounter for long-term (current) use of medications Every 3 months for 5 Occurrences starting 06/24/2023 until 06/23/2024 [facility] Comment on above: Every 3 months for 5 Occurrences startin g 06/24/2023 until 06/23/2024 End: 06-23-2024 CBC W Auto Differential panel - Blood COMPLETE BLOOD COUNT AND DIFFERENTIAL Lab Routine Chronic tophaceous gout Encounter for long-term (current) use of medications Every 3 months for 5 Occurrences starting 06/24/2023 until 06/23/2024 [facility] Comment on above: Every 3 months for 5 Occurrences startin g 06/24/2023 until 06/23/2024 End: 06-23-2024 CREATININE BLD CREATININE BLD Lab Routine Chronic tophaceous gout Encounter for long-term (current) use of medications Every 3 months for 5 Occurrences starting 06/24/2023 until 06/23/2024 [facility] Comment on above: Every 3 months for 5 Occurrences startin g 06/24/2023 until 06/23/2024 End: 06-23-2024 Erythrocyte sedimentation rate SEDIMENTATION RATE, WESTERGREN Lab Routine Chronic tophaceous gout Encounter for long-term (current) use of medications Every 3 months for 5 Occurrences starting 06/24/2023 until 06/23/2024 [facility] Comment on above: Every 3 months for 5 Occurrences startin g 06/24/2023 until 06/23/2024 Patient Education [facility] Work Phone: Patient referral [facility] Work Phone: End: 06-23-2024 Urate [Mass/volume] in Serum or Plasma URIC ACID Lab Routine Chronic tophaceous gout Encounter for long-term (current) use of medications Every 6 months for 3 Occurrences starting 06/24/2023 until 06/23/2024 [facility] Comment on above: Every 6 months for 3 Occurrences startin g 06/24/2023 until 06/23/2024 End: 02-02-2025 XR Foot - bilateral AP and Lateral and oblique XR FOOT GENERAL 3V AP/LAT/OBL BILATERAL Radiology Routine Chronic tophaceous gout Encounter for long-term (current) use of medications 1 Occurrences starting 01/04/2024 until 02/02/2025 [facility] Work Phone: Comment on above: 1 Occurrences starting 01/04/2024 until 02/02/2025 XR Foot - bilateral AP and Lateral and oblique XR FOOT GENERAL 3V AP/LAT/OBL BILATERAL Radiology Routine Chronic tophaceous gout Encounter for long-term (current) use of medications 01/04/2024 9:48 AM EST [facility] Immunizations Immunization Date Immunization Notes Care Provider [facility] 10-13-2018 influenza virus vacc ine, unspecified formulation Delmy Boyle MD Work Phone: [facility] 10-13-2002 measles, mumps and rubella virus vaccine Ledyi Aceves MD Work Phone: [facility] 10-20-1993 diphtheria, tetanus toxoids and acellular pertussis vaccine, unspecified formulation Leydi Aceves MD Work Phone: [facility] 10-20-1993 haemophilus influenz ae type b vaccine, conjugate unspecified formulation Leydi Aceves MD Work Phone: [facility] 10-20-1993 trivalent poliovirus vaccine, live, oral Leydi Aceves MD Work Phone: [facility] 07-26-1991 diphtheria, tetanus toxoids and pertussis vaccine Leydi Aceves MD Work Phone: [facility] 07-26-1991 haemophilus influenz ae type b vaccine, conjugate unspecified formulation Leydi Aceves MD Work Phone: [facility] 07-26-1991 measles, mumps and rubella virus vaccine Leydi Aceves MD Work Phone: [facility] 02-03-1991 diphtheria, tetanus toxoids and pertussis vaccine Leydi Aceves MD Work Phone: [facility] 02-03-1991 haemophilus influenz ae type b vaccine, conjugate unspecified formulation Leydi Aceves MD Work Phone: [facility] 02-03-1991 trivalent poliovirus vaccine, live, oral Leydi Aceves MD Work Phone: [facility] 1990 diphtheria, tetanus toxoids and pertussis vaccine Leydi Aceves MD Work Phone: [facility] 1990 haemophilus influenz ae type b vaccine, conjugate unspecified formulation Leydi Aceves MD Work Phone: [facility] 1990 trivalent poliovirus vaccine, live, oral Leydi Aceves MD Work Phone: [facility] Payers Date Payer Category Payer Self-pay 2022 [facility] Health Insurance [facility] MEDICAID [id number] 2021 Medicaid [facility] MEDICAID [id number] 2021-Present [phone] [address] [place] [address] Medicaid [id number] 2021 Medicaid [id number] 2018 Unknown [id number] 1990 Unknown [id number] 2.16.840.1.677945.3.579.2. 173 1990 Unknown [id number] 2.16.840.1.592814.3.579.2. 593 1990 Unknown [id number] 2.16.840.1.742936.3.579.2. 593 1990 Unknown [id number] 2.16.840.1.916705.3.579.2. 593 1990 Unknown [id number] 2.16.840.1.550648.3.579.2. 593 1990 Unknown [id number] 2.16.840.1.219843.3.579.2. 593 1990 Unknown [id number] 2.16.840.1.027753.3.579.2. 593 1990 Unknown [id number] 2.16.840.1.478752.3.579.2. 593 1990 Unknown [id number] 2.16.840.1.936029.3.579.2. 593 1990 Unknown [id number] 2.16.840.1.182692.3.579.2. 593 1990 Unknown [id number] 2.16.840.1.066070.3.579.2. 593 1990 Unknown [id number] 2.16.840.1.256397.3.579.2. 727 1990 Unknown [id number] 2.16.840.1.300742.3.579.2. 1259 1990 Unknown [id number] 2.16.840.1.516686.3.579.2. 9 1990 Unknown [id number] 2.16.840.1.781816.3.579.2. 1258 1990 Unknown [id number] 2.16.840.1.975275.3.579.2. 1258 1990 Unknown [id number] 2.16.840.1.169346.3.579.2. 1259 1959 Medicaid [id number] 1959 Unknown [id number] Unknown [facility] [id number] Unknown [id number] 2.16.840.1.764780.3.579.2. 531 Unknown [id number] 2.16.840.1.356320.3.579.2. 531 Social History Date Type Detail Facility Start: 05-04-2017 End: 01-01-2022 Tobacco smoking status IDIS Never smoked tobacco [facility] Start: 05-04-2017 End: 01-11-2024 Tobacco use and exposure User of smokeless tobacco [facility] History of tobacco use Chews Tobacco [facility] Start: 1990 Sex Assigned At Male [facility] Start: 12-08-2021 Tobacco smoking status NHIS Smoker (finding) [facility] Start: 12-22-2021 End: 01-01-2022 Exposure to SARS-CoV-2 (event) Not sure [facility] Start: 08-14-2022 End: 10-10-2023 History of Social function [facility] Start: 08-14-2022 End: 10-10-2023 Tobacco use panel [facility] Adult Depression Screening Assessment 4 [facility] Start: 11-09-2019 Gender identity Identifies as male gender (finding) [facility] Start: 11-09-2019 Sexual orientation Heterosexual (finding) [facility] Start: 09-14-2022 Tobacco use and exposure Smokeless tobacco non-user [facility] Start: 02-16-2023 End: 05-18-2024 Alcohol intake Current drinker of alcohol (finding) [facility] Within the last year , have you been afraid of your partner or ex-partner? No [facility] Do you belong to any clubs or organizations such as yazdanism groups, unions, [employer] or athletic groups, or school groups? Yes [...] Start: 02-26-2008 End: 01-11-2024 Tobacco smoking status IDIS Smokes tobacco daily [facility] Are you [...] 02-26-2008 History of tobacco use Cigarette Smoker [facility] Goals Date Patient Goal Desired Activity /State Functional Status Date Assessment Result Facility 12-10-2021 Functional status Patient at Baseline [facility] Work Phone: 12-07-2021 Functional status Disability Sta tus Patient at Baseline [facility] Work Phone: Mental Status Date Assessment Result Facility 12-10-2021 Cognitive function Cognitive Sta tus Patient at Baseline [facility] Work Phone: Clinical Notes 04-25-2017 to 07-26-2024 Telephone Encounter - [facility] - 07/26/2024 9:35 AM EDTTelephone Encounter - [facility] - 07/26/2024 9:35 AM EDTTelephone Encounter - [facility] - 07/26/2024 9:33 AM EDT Note Date & Type Note Facility 07-26-2024 Telephone encounter Note Tramadol already sent. [facility] 07-26-2024 Miscellaneous Notes Tramadol already sent. documented in this encounter [facility] 07-26-2024 Telephone encounter Note OARRS reviewed, Rx sent into patient's pharmacy. [facility] 07-26-2024 Miscellaneous Notes OARRS reviewed, Rx sent into patient's pharmacy. documented in this encounter [facility] 07-11-2024 Telephone encounter Note No longer filling the [place] for pt, he has been tapered off. He can take Tramadol as needed for pain. [facility] 07-11-2024 Miscellaneous Notes No longer filling the [place] for pt, he has been tapered off. He can take Tramadol as needed for pain. Last OV 3-20-25 Refill 5-925 documented in this encounter [facility] 07-11-2024 Telephone encounter Note Last OV 3-20-25 Refill 5-925 [facility] 07-07-2024 Telephone encounter Note OARRS reviewed, Rx sent into patient's pharmacy. [facility] 07-07-2024 Miscellaneous Notes OARRS reviewed, Rx sent into patient's pharmacy. Last OV 3-2025 Last refill 5-5-25 documented in this encounter [facility] 07-07-2024 Telephone encounter Note Last OV 3-20-25 Last refill 5-5-25 [facility] 07-03-2024 Telephone encounter Note Sent in a lower dosing frequency. [facility] 07-03-2024 Miscellaneous Notes Sent in a lower dosing frequency. documented in this encounter [facility] 06-28-2024 Telephone encounter Note OARRS reviewed, Rx sent into patient's pharmacy. [facility] 06-28-2024 Miscellaneous Notes OARRS reviewed, Rx sent into patient's pharmacy. documented in this encounter [facility] 06-27-2024 Telephone encounter Note Already addressed, [facility] 06-27-2024 Miscellaneous Notes Already addressed, HYDROcodone-acetaminophen ([place]) 5-325 MG tablet [facility] documented in this encounter [facility] 06-27-2024 Telephone encounter Note Currently on medrol [facility] 06-27-2024 Miscellaneous Notes Currently on medrol documented in this encounter [facility] 06-26-2024 Telephone encounter Note HYDROcodone-acetaminophen ([place]) 5-325 MG tablet [facility] 06-19-2024 Telephone encounter Note OARRS reviewed, Rx sent into patient's pharmacy. [facility] 06-19-2024 Miscellaneous Notes OARRS reviewed, Rx sent into patient's pharmacy. documented in this encounter [facility] 06-12-2024 Telephone encounter Note OARRS reviewed, Rx sent into patient's pharmacy. [facility] 06-12-2024 Miscellaneous Notes OARRS reviewed, Rx sent into patient's pharmacy. documented in this encounter [facility] 06-05-2024 Telephone encounter Note OARRS reviewed, Rx sent into patient's pharmacy. [facility] 06-05-2024 Miscellaneous Notes OARRS reviewed, Rx sent into patient's pharmacy. documented in this encounter [facility] 05-29-2024 Telephone encounter Note OARRS reviewed, Rx sent into patient's pharmacy. [facility] 05-29-2024 Miscellaneous Notes OARRS reviewed, Rx sent into patient's pharmacy. Last OV 05-18-24 Last refill 05-23-24 documented in this encounter [facility] 05-29-2024 Telephone encounter Note Last OV 05-18-24 Last refill 05-23-24 [facility] 05-11-2024 Telephone encounter Note OARRS reviewed, Rx sent into patient's pharmacy. [facility] 05-11-2024 Miscellaneous Notes OARRS reviewed, Rx sent into patient's pharmacy. Pt called asking for hydrocodone to be sent in I'm not seeing this on his med list documented in this encounter [facility] 05-11-2024 Telephone encounter Note Pt called asking for hydrocodone to be sent in I'm not seeing this on his med list [facility] 04-25-2024 Telephone encounter Note OARRS reviewed, Rx sent into patient's pharmacy. [facility] 04-25-2024 Miscellaneous Notes OARRS reviewed, Rx sent into patient's pharmacy. documented in this encounter [facility] 04-20-2024 History of Present illness Narrative Images from the original note were not included. HPI Med Refill Additional comments: Oxycodone for a few days Last edited by Cristal Ojeda LPN on 04/20/2024 10:02 AM. Subjective Patient ID: Nick Wray is a 34 y.o. male who presents for [facility] ER follow up. Flowsheet Row Patient Outreach from 04/18/2024 in [facility] with Jayne Del Valle RN Hospital Information ED, Hospital or [facility] Facility Discharge? ED Patient has been contacted within 1 week of being seen in the ED Yes Diagnosis Rheumatoid Arthritis Flare up, single digit Discharge Date 04/15/24 Discharged To: Home Setting Discharge Hospital [facility] Engagement Admission Date 04/15/24 Medications Discharge [...] all this for 10 days. - HYDROcodone-acetaminophen ([place]) 5-325 MG tablet; Take 1 tablet by [...] Medication Follow Up. documented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 HospitalIn the event this information is protected by the Federal Confidentiality of Alcohol and Drug Abuse Patient Records regulations: The Federal rules restrict any use of the information to criminally investigate or prosecute any alcohol or drug abuse patient.[facility] HospitalIn the event this information is protected by the Federal Confidentiality of Alcohol and Drug Abuse Patient Records regulations: The Federal rules restrict any use of the information to criminally investigate or prosecute any alcohol or drug abuse patient.[facility] HospitalIn the event this information is protected by the Federal Confidentiality of Alcohol and Drug Abuse Patient Records regulations: The Federal rules restrict any use of the information to criminally investigate or prosecute any alcohol or drug abuse patient.[facility] HospitalIn the event this information is protected by the Federal Confidentiality of Alcohol and Drug Abuse Patient Records regulations: The Federal rules restrict any use of the information to criminally investigate or prosecute any alcohol or drug abuse patient.[facility] HospitalIn the event this information is protected by the Federal Confidentiality of Alcohol and Drug Abuse Patient Records regulations: The Federal rules restrict any use of the information to criminally investigate or prosecute any alcohol or drug abuse patient.[facility] HospitalIn the event this information is protected by the Federal Confidentiality of Alcohol and Drug Abuse Patient Records regulations: The Federal rules restrict any use of the information to criminally investigate or prosecute any alcohol or drug abuse patient.[facility] HospitalIn the event this information is protected by the Federal Confidentiality of Alcohol and Drug Abuse Patient Records regulations: The Federal rules restrict any use of the information to criminally investigate or prosecute any alcohol or drug abuse patient.[facility] HospitalIn the event this information is protected by the Federal Confidentiality of Alcohol and Drug Abuse Patient Records regulations: The Federal rules restrict any use of the information to criminally investigate or prosecute any alcohol or drug abuse patient.[facility] HospitalIn the event this information is protected by the Federal Confidentiality of Alcohol and Drug Abuse Patient Records regulations: The Federal rules restrict any use of the information to criminally investigate or prosecute any alcohol or drug abuse patient.[facility] HospitalIn the event this information is protected by the Federal Confidentiality of Alcohol and Drug Abuse Patient Records regulations: The Federal rules restrict any use of the information to criminally investigate or prosecute any alcohol or drug abuse patient.[facility] HospitalIn the event this information is protected [...] any alcohol or drug abuse patient.[facility] HospitalIn the event this information is protected by the Federal Confidentiality of Alcohol and Drug Abuse Patient Records regulations: The Federal rules restrict any use of the information to criminally investigate or prosecute any alcohol or drug abuse patient.[facility] HospitalIn the event this information is protected by the Federal Confidentiality of Alcohol and Drug Abuse Patient Records regulations: The Federal rules restrict any use of the information to criminally investigate or prosecute any alcohol or drug abuse patient.[facility] Care Teams (unrecognized sec tion and [...] August 22, 2023 End: August 22, 2023 Dog Control Officer Relationship Specialty Start Date End Date Ketan eLydi Temple PCP - General Family Practice 01/07/15 Team Status: Inactive Member Role Status Dates Leydi Aceves MD Primary Care Provider Active Juvenal Smith MD Emergency Provider Active Team Status: Inactive Member Role Status Dates Leydi Aceves MD Primary Care Provider Active Adam Young MD Admit Provider, Attending Provider Active Dog Control Officer Relationship Specialty Start Date End Date Ketan Leydi Temple PCP - General Family Medicine 01/07/15 Dog Control Officer Relationship Specialty Start Date End Date Leydi Aceves PCP - General Family Medicine 01/07/15 Dog Control Officer Relationship Specialty Start Date End Date Leydi Aceves PCP - General Family Medicine 01/07/15 Dog Control Officer Relationship Specialty Start Date End Date Leydi Aceves PCP - General Family Medicine 01/07/15 Dog Control Officer Relationship Specialty Start Date End Date Leydi Aceves MD PCP - General Family Medicine 01/07/15 Dog Control Officer Relationship Specialty Start Date End Date Leydi Aceves MD PCP - General Family Medicine 01/07/15 Dog Control Officer Relationship Specialty Start Date End Date Leydi Aceves MD [address] [facility] [address] [place] [address] PCP - General Family Medicine 07/29/22 Leydi Aceves MD [address] [place] [address] PCP - [facility] 05/30/22 Dog Control Officer Relationship Specialty Start Date End Date Leydi Aceves MD [address] [place] [address] PCP - General Family [facility] 07/29/22 Leydi Aceves MD [address] [place] [address] PCP - [facility] 05/30/22 Dog Control Officer Relationship Specialty Start Date End Date Leydi Aceves MD PCP - General Family Medicine 01/07/15 Dog Control Officer Relationship Specialty Start Date End Date Leydi Aceves MD PCP - General Family Medicine 01/07/15 Dog Control Officer Relationship Specialty Start Date End Date Leydi Aceves MD PCP - General Family Medicine 01/07/15 Dog Control Officer Relationship Specialty Start Date End Date Leydi Aceves MD [address] [place] [address] PCP - General Family [facility] 07/29/22 Leydi Aceves MD [address] [place] [address] PCP - [facility] 05/30/22 Grady, Alma, CASH PROCESSOR [address] [place] [address] Licensed Practical Nurse Family Medicine 06/04/23 Dog Control Officer Relationship Specialty Start Date End Date Leydi Aceves MD [address] [place] [address] PCP - General Family Medicine 07/29/22 Leydi Aceves MD [address] [place] [address] PCP - [facility] 05/30/22Wednesday, Alma, CASH PROCESSOR [address] [place] [address] Licensed Practical Nurse Family Medicine 06/04/23 Dog Control Officer Relationship Specialty Start Date End Date Leydi Aceves MD [address] [place] [address] PCP - General Family Medicine 07/29/22 Leydi Aceves MD [address] [place] [address] [facility] 05/30/22Wednesday, Alma, CASH PROCESSOR [address] [place] [address] Licensed Practical Nurse Family Medicine 06/04/23 Dog Control Officer Relationship Specialty Start Date End Date Leydi Aceves MD PCP - General Family Medicine 01/07/15 Dog Control Officer Relationship Specialty Start Date End Date Leydi Aceves MD PCP - General Family Medicine 01/07/15 Dog Control Officer Relationship Specialty Start Date End Date Leydi Aceves MD PCP - General Family [facility] 01/07/15 Dog Control Officer Relationship Specialty Start Date End Date Leydi Aceves MD [address] [place] [address] PCP - [facility] 07/29/22 Leydi Aceves MD [address] [place] [address] PCP [facility] 05/30/22Wednesday, Alma, CASH PROCESSOR [address] [place] [address] Licensed Practical Nurse Family Medicine 06/04/23 Dog Control Officer Relationship Specialty Start Date End Date Leydi Aceves MD [address] [place] [address] PCP - [facility] 07/29/22 Leydi Aceves MD [address] [place] [address] [facility] 05/30/22Wednesday, Alma, CASH PROCESSOR [address] [place] [address] Licensed Practical Nurse Family Medicine 06/04/23 Dog Control Officer Relationship Specialty Start Date End Date Leydi Aceves MD [address] [place] [address] PCP - [facility] 07/29/22 Leydi Aceves MD [address] [place] [address] PCP [facility] 05/30/22Wednesday, Alma, CASH PROCESSOR [address] [place] [address] Licensed Practical Nurse Family Medicine 06/04/23 Dog Control Officer Relationship Specialty Start Date End Date Leydi Aceves MD [address] [place] [address] PCP - General Family [facility] 07/29/22 Leydi Aceves MD [address] [place] [address] PCP [facility] 05/30/22Wednesday, Amla, CASH PROCESSOR [address] [place] [address] Licensed Practical Nurse Family Medicine 06/04/23 Dog Control Officer Relationship Specialty Start Date End Date Leydi Aceves MD [address] [place] [address] PCP - General [facility] 07/29/22 Leydi Aceves MD [address] [place] [address] PCP [facility] 05/30/22Wednesday, Alma, CASH PROCESSOR [address] [place] [address] Licensed Practical Nurse Family Medicine 06/04/23 Dog Control Officer Relationship Specialty Start Date End Date Leydi Aceves MD [address] [place] [address] PCP - General [facility] 07/29/22 Leydi Aceves MD [address] [place] [address] PCP [facility] 05/30/22Wednesday, BREE Marquez [address] [place] [address] Licensed Practical Nurse Family Medicine 06/04/23 Dog Control Officer Relationship Specialty Start Date End Date Leydi Aceves MD [address] [place] [address] PCP - General Family [facility] 07/29/22 Leydi Aceves MD [address] [place] [address] PCP [facility] 05/30/22Wednesday, BREE Marquez [address] [place] [address] Licensed Practical Nurse Family Medicine 06/04/23 Dog Control Officer Relationship Specialty Start Date End Date Leydi Aceves MD [address] [place] [address] PCP - General Family Medicine 07/29/22 Leydi Aceves MD [address] [place] [address] PCP [facility] 05/30/22 Jayne Del Valle RN Licensed Practical Nurse Family Medicine 04/07/24 Dog Control Officer Relationship Specialty Start Date End Date Leydi Aceves MD [address] [place] [address] PCP - General Family Medicine 07/29/22 Leydi Aceves MD [address] [place] [address] PCP [facility] 05/30/22 Jayne Del Valle RN Licensed Practical Nurse Family Medicine 04/07/24 Dog Control Officer Relationship Specialty Start Date End Date Leydi Aceves MD [address] [place] [address] PCP - General Family Medicine 07/29/22 Leydi Aceves MD [address] [place] [address] PCP - [facility] 05/30/22 Jayne Del Valle, DELMIS Licensed Practical Nurse Family Medicine 04/07/24 Dog Control Officer Relationship Specialty Start Date End Date Leydi Aceves MD [address] [place] [address] PCP - [facility] 07/29/22 Leydi Aceves MD [address] [place] [address] PCP - [facility] 05/30/22 Jayne Del Valle, DELMIS Licensed Practical Nurse Family Medicine 04/07/24 Dog Control Officer Relationship Specialty Start Date End Date Leydi Aceves MD [address] [place] [address] PCP - General [facility] 07/29/22 Leydi Aceves MD [address] [place] [address] PCP [facility] 05/30/22 Jayne Del Valle, DELMIS Licensed Practical Nurse Family Medicine 04/07/24 Dog Control Officer Relationship Specialty Start Date End Date Leydi Aceves MD [address] [place] [address] PCP - General Family Medicine 07/29/22 Leydi Aceves MD [address] [place] [address] PCP - [facility] 05/30/22 Merry Paz LPN 05/19/24 Dog Control Officer Relationship Specialty Start Date End Date Leydi Aceves MD [address] [place] [address] PCP - [facility] 07/29/22 Leydi Aceves MD [address] [place] [address] PCP - [facility] 05/30/22 Merry Paz CASH PROCESSOR 05/19/24 Dog Control Officer Relationship Specialty Start Date End Date Leydi Aceves MD [address] [place] [address] PCP - [facility] 07/29/22 Leydi Aceves MD [address] [place] [address] PCP - [facility] 05/30/[address] [facility] 05/19/24 Dog Control Officer Relationship Specialty Start Date End Date Leydi Aceves MD [address] [place] [address] PCP - [facility] 07/29/22 Leydi Aceves MD [address] [place] [address] PCP - [facility] 05/30/22 Merry Paz LPN 05/19/24 Dog Control Officer Relationship Specialty Start Date End Date Leydi Aceves MD [address] [facility] [address] [place] [address] PCP - [facility] 07/29/22 Leydi Aceves MD [address] [facility] [address] [place] [address] PCP - [facility] 05/30/22 Merry Paz LPN 05/19/24 Dog Control Officer Relationship Specialty Start Date End Date Leydi Aceves MD [address] [facility] [address] [place] [address] PCP - [facility] 07/29/22 Leydi Aceves MD [address] [facility] [address] [place] [address] PCP - [facility] 05/30/22 Merry Paz CASH PROCESSOR 05/19/24 Goals (unrecognized section and content) Goals [...] KNEE COMPLETE 4/[place] [address] [place] [address] [facility] [address] Referral ID Status Reason Start Date Expiration Date V isits Requested Visits Authorized [id number] Closed Auto-Generate d Referral 01/04/2024 02/02/2025 1 [...] BE BASED ON THE PRIMARY CLINICAL RECORDS. [employer] provides no warranty or guarantee of the accuracy or completeness of information in this document.
--- OUTSIDE RECORDS SUMMARY | 2024-07-30 19:41 | XMS_ITS | Clinical Summary ---
Author Organization [facility] Address [address] [place] [address] Care Team Providers Care Customs House Broker Name Role Phone Malcolm Cid MD Primary Care Provider [phone] Allergies No known active allergies Medications gabapentin [...] patient's age to complete this topic Insurance [facility] Member Subscriber Plan / Payer (Ef fective 2018-Present) Name:Kam Wrayn Relation to Subscriber:Self Name:Nick Wray Payer ID:Not on file Type:Not on file Address: [address] [employer] Advance Directives * Full Code (Latest Code Status on File) Date Activated Date Inactivated Comments 04/26/2015 11:58 PM 04/28/2015 7:53 PM * Full Code Date Activated Date Inactivated Comments 02/24/2015 8:57 PM 02/28/2015 4:48 PM Care Teams Customs House Broker Relationship Specialty Start Date End Date Malcolm Cid MD PCP - General 02/24/15
--- OUTSIDE RECORDS SUMMARY | 2024-07-30 19:41 | XMS_ITS | Encounter Summary ---
Author Organization [facility] Address [address] [place] [address] Care Team Providers Care Attractions Associate Name Role Phone Malcolm Cid MD Primary Care Provider [phone] Source Comments In the event this information is protected by the Federal Confidentiality of Alcohol and Drug AbusePatient Records regulations: The Federal rules restrict any use of the information to criminally investigate or prosecute any alcohol or drug abuse patient.[facility] Encounter Details Date Type Department Care Team (Late st Contact Info) Description 03/10/2019 Patient Msg Rheumatology [address] [place], [place] [id number] [place] [address] [place], [place] [id number] April lab reminder Social History Tobacco Use [...] 10/03/2024 8:00 AM EDT Office Visit Rheumatology [address] [place] [address] [place] [address] [place] [address] Return in about 9 months (around 10/03/2024). documented as of this encounter Visit Diagnoses Not on filedocumented in this encounter Care Teams Attractions Associate Relationship Specialty Start Date End Date Malcolm Cid MD PCP - General Family Medicine 01/07/15 documented as of this encounter
--- OUTSIDE RECORDS SUMMARY | 2024-07-30 19:41 | XMS_ITS | Encounter Summary ---
Author Organization [facility] Address [address] [place] [address] Care Team Providers Care Geophysical Prospecting Surveyor Name Role Phone Malcolm Cid MD Primary Care Provider [phone] Malcolm Cid MD Unavailable Wednesday, Alma AQUINON Unavailable [phone] Jayne Del Valle RN Unavailable Merry Paz PERFORMING [address] MANAGER Unavailable Unavailable Reason for Visit * Reason Onset Date Comments Med Refill 10/01/2023 Encounter Details Date Type Department Care Team (Late st Contact Info) Description 10/01/2023 Refill [facility] [address] [facility] [address] [place] [address] Marina Proctor, PA [address] [place] [address] 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 rheumatoid factor ([facility]/HCC) Social History Tobacco Use Types Packs/Day [...] care, and heating? Not very hard 09/14/2022 [facility] [place] of Occupat ional Health - Occupational Stress [...] (CMS/HCC) documented in this encounter Care Teams Geophysical Prospecting Surveyor Relationship Specialty Start Date End Date Malcolm Cid MD [address] [facility] [address] [place] [address] PCP - General Family Medicine 07/29/22 Malcolm Cid MD [address] [facility] [address] [place] [address] PCP - [facility] 05/30/22Wednesday, BREE Marquez [address] [facility] [address] [place] [address] Licensed Practical Nurse Family Medicine 06/04/23 Jayne Del Valle, RN Licensed Practical Nurse Family Medicine 04/07/2404/30 Merry Paz LPN 05/19/24 documented as of this encounter
--- OUTSIDE RECORDS SUMMARY | 2024-07-30 19:41 | XMS_ITS | Encounter Summary ---
Author Organization [facility] Address [address] [place] [address] Care Team Providers Care Corporate Affairs Manager Name Role Phone Malcolm Cid MD Primary Care Provider [phone] Source Comments In the event this information is protected by the Federal Confidentiality of Alcohol and Drug AbusePatient Records regulations: The Federal rules restrict any use of the information to criminally investigate or prosecute any alcohol or drug abuse patient.[facility] Encounter Details Date Type Department Care Team (Late st Contact Info) Description 04/05/2020 Patient Msg Rheumatology [address] [place], [place] [address] Provider, [facility] Results Social History Tobacco Use Types Packs/Day Years Used Date Smoking Tobacco: Never Smokeless Tobacco: Current Chew PHQ-2 Answer Date Recorded PHQ-2 score 4 03/31/2020 Area Deprivation Index Answer Date Adis rded National Score (1-100), lower number is lower ri sk Not on file 02/05/2020 State Score (1-10), lower number is lower risk N ot on file 02/05/2020 Data from: https://www.neighborhoodatlas.medicine.[facility].edu/. Last address used for calculation Not [...] 10/03/2024 8:00 AM EDT Office Visit Rheumatology [address] [place] [address] [place] [address] [place], [place] [id number] Return in about 9 months (around 10/03/2024). documented as of this encounter Visit Diagnoses Not on filedocumented in this encounter Care Teams Corporate Affairs Manager Relationship Specialty Start Date End Date Malcolm Cid MD PCP - General Family Medicine 01/07/15 documented as of this encounter
--- OUTSIDE RECORDS SUMMARY | 2024-07-30 19:41 | XMS_ITS | Encounter Summary ---
Author Organization [facility] Address [address] [place] [address] Care Team Providers Care Permaculture Contractor Name Role Phone Malcolm Cid MD Primary Care Provider [phone] Malcolm Cid MD Unavailable Wednesday, Alma AQUINON Unavailable [phone] Jayne Del Valle RN Unavailable Merry Paz NURSE SEXUAL ASSAULT Unavailable Unavailable Reason for Visit * Reason Onset Date Comments Med Refill 08/23/2023 Encounter Details Date Type Department Care Team (Late st Contact Info) Description 08/23/2023 Refill [facility] [address] [facility] [address] [place] [id number] Malcolm Cid MD [address] [place], [place] [id number] 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 rheumatoid factor ([facility]/HCC) Social History Tobacco Use Types Packs/Day Years [...] How often do you attend chur or orthodox services? More than 4 times per year 09/14/2022 Do you belong to any clubs o r organizations such as scientology groups, unions, fraternal [...] care, and heating? Not very hard 09/14/2022 [facility] [place] of Occupat ional Health - Occupational Stress [...] (CMS/HCC) documented in this encounter Care Teams Permaculture Contractor Relationship Specialty Start Date End Date Malcolm Cid MD [address] [facility] [address] [place] [address] PCP - General Family Medicine 07/29/22 Malcolm Cid MD [address] [facility] [address] [place] [address] PCP - [facility] 05/30/22Wednesday, BREE Marquez [address] [facility] [address] [place] [address] Licensed Practical Nurse Family Medicine 06/04/23 Jayne Del Valle, RN Licensed Practical Nurse Family Medicine 04/07/2404/30 Merry Paz LPN 05/19/24 documented as of this encounter
--- OUTSIDE RECORDS SUMMARY | 2024-07-30 19:41 | XMS_ITS | Encounter Summary ---
Author Organization [facility] Address [address] [place] [address] Care Team Providers Care Ceramic Engineer Name Role Phone Malcolm Cid MD Primary Care Provider [phone] Malcolm Cid MD Unavailable Wednesday, Alma AQUINON Unavailable [phone] Jayne Del Valle RN Unavailable Merry Paz TOOLING SPECIALIST Unavailable Unavailable Reason for Visit * Reason Onset Date Comments Med Refill 09/15/2023 Encounter Details Date Type Department Care Team (Late st Contact Info) Description 09/15/2023 Refill [facility] [address] [facility] [address] [place] [address] Malcolm Cid MD [address] [place], [place] [id number] 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 rheumatoid factor ([facility]/HCC) Social History Tobacco Use Types Packs/Day [...] How often do you attend chur or spiritism services? More than 4 times per year 09/14/2022 Do you belong to any clubs o r organizations such as spiritism groups, unions, fraternal or athletic groups, or [...] and heating? Not very hard 09/14/2022 [facility] [place] of Occupat ional Health - Occupational Stress [...] get set up for appt with Dr. Cdi within the next month for controlled med follow up. * Telephone Encounter - Roseanna Elmore - 09/15/2023 3:18 PM EDT [facility] documented in this encounter Plan of Treatment Not on file documented as of this encounter Visit Diagnoses Diagnosis 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 rheumatoid factor ([facility]) documented in this encounter Care Teams Ceramic Engineer Relationship Specialty Start Date End Date Malcolm Cid MD [address] [place] [address] PCP - General Family Medicine 07/29/22 Malcolm Cid MD [address] [place] [address] PCP - [facility] 05/30/22Wednesday, BREE Marquez [address] [place] [address] Licensed Practical Nurse Family Medicine 06/04/23 Jayne Del Valle, DELMIS Licensed Practical Nurse Family Medicine 04/07/2404/30 Merry Paz LPN 05/19/24 documented as of this encounter
--- OUTSIDE RECORDS SUMMARY | 2024-07-30 19:41 | XMS_ITS | Encounter Summary ---
Author Organization [facility] Address [address] [place] [address] Care Team Providers Care Quantitative Equity Head Name Role Phone Malcolm Cid MD Primary Care Provider [phone] Source Comments In the event this information is protected by the Federal Confidentiality of Alcohol and Drug AbusePatient Records regulations: The Federal rules restrict any use of the information to criminally investigate or prosecute any alcohol or drug abuse patient.[facility] Encounter Details Date Type Department Care Team (Late st Contact Info) Description 03/16/2018 Patient Msg Infectious Disease [address] [place], [place] [id number] Provider, Ccf RE: Dr Castro reply- please [...] 10/03/2024 8:00 AM EDT Office Visit Rheumatology [address] [place] [address] [place] [address] [place] [address] Return in about 9 months (around 10/03/2024). documented as of this encounter Visit Diagnoses Not on filedocumented in this encounter Care Teams Quantitative Equity Head Relationship Specialty Start Date End Date Malcolm Cid MD PCP - General Family Medicine 01/07/15 documented as of this encounter
--- OUTSIDE RECORDS SUMMARY | 2024-07-30 19:41 | XMS_ITS | Encounter Summary ---
Author Organization [facility] Address [address] [place] [address] Care Team Providers Care Reservoir Engineering Advisor Name Role Phone Malcolm Cid MD Primary Care Provider [phone] Malcolm Cid MD Unavailable Wednesday, Alma AQUINON Unavailable [phone] Jayne Del Valle RN Unavailable Merry Paz QUALITY COMPLIANCE MANAGER Unavailable Unavailable Encounter Details Date Type Department Care Team (Late st Contact Info) Description 03/08/2023 Abstract [facility] [address] [facility] [address] [place] [id number] Malcolm Cid MD 112 [facility] 110 [place], [place] [id number] Social History Tobacco Use Types Packs/Day Years [...] any clubs o r organizations such as sabianism groups, unions, fraternal or athletic groups, or [...] care, and heating? Not very hard 09/14/2022 [facility] of Occupat ional Health - [...] on filedocumented in this encounter Care Teams Reservoir Engineering Advisor Relationship Specialty Start Date End Date Malcolm Cid MD [address] [place] [address] PCP - General Family Medicine 07/29/22 Malcolm Cid MD [address] [place] [address] PCP - [facility] 05/30/22Wednesday, BREE Marquez [address] [place] [address] Licensed Practical Nurse Family Medicine 06/04/23 Jayne Del Valle, RN Licensed Practical Nurse Family Medicine 04/07/2404/30 Merry Paz LPN 05/19/24 documented as of this encounter
--- OUTSIDE RECORDS SUMMARY | 2024-07-30 19:41 | XMS_ITS | Encounter Summary ---
Author Organization [facility] Address [address] [place] [address] Care Team Providers Care Client Success Director Name Role Phone Malcolm Cid MD Primary Care Provider [phone] Malcolm Cid MD Unavailable Wednesday, Alma AQUINON Unavailable [phone] Jayne Del Valle RN Unavailable [phone] Merry Paz INSULATION SPRAYER Unavailable Unavailable Encounter Details Date Type Department Care Team (Late st Contact Info) Description 06/09/2023 Orders Only [facility] [address] [place] [address] Unallocated, Noms Provider, [address] [place], [place] [address] Social History Tobacco Use Types Packs/Day Years [...] How often do you attend chur or confucianism services? More than 4 times per year [...] on filedocumented in this encounter Care Teams Client Success Director Relationship Specialty Start Date End Date Malcolm Cid MD 112 [facility] 110 [place] [address] PCP - General Family Medicine 07/29/22 Malcolm Cid MD [address] [place] [address] PCP - [facility] 05/30/22Wednesday, BREE Marquez [address] [place] [address] Licensed Practical Nurse Family Medicine 06/04/23 Jayne Del Valle, DELMIS Licensed Practical Nurse Family Medicine 04/07/2404/30 Merry Paz LPN 05/19/24 documented as of this encounter
--- OUTSIDE RECORDS SUMMARY | 2024-07-30 19:41 | XMS_ITS | Encounter Summary ---
Author Organization [facility] Address [address] [place] [address] Care Team Providers Care Resource Teacher Name Role Phone Malcolm Cid MD Primary Care Provider [phone] Malcolm Cid MD Unavailable Wednesday, Alma AQUINON Unavailable [phone] Jayne Del Valle RN Unavailable Merry Paz MORPHOLOGY TEACHER Unavailable Unavailable Encounter Details Date Type Department Care Team (Late st Contact Info) Description 07/06/2023 Abstract [facility] [address] [facility] 110 [place] [id number] Malcolm Cid MD 112 [facility] 110 [place], [place] [address] Social History Tobacco Use Types Packs/Day Years [...] How often do you attend chur or anglican services? More than 4 times per year 09/14/2022 Do you belong to any clubs o r organizations such as yarsani groups, unions, fraternal or athletic groups, or [...] care, and heating? Not very hard 09/14/2022 [facility] of Occupat ional Health - Occupational [...] place to sleep or slept in a fpc (including now)? No 09/14/2022 Sex and Gender [...] filedocumented in this encounter Care Teams Resource Teacher Relationship Specialty Start Date End Date Malcolm Cid MD [address] [facility] 110 [place] [address] PCP - General Family Medicine 07/29/22 Malcolm Cid MD [address] [place] [address] PCP - [facility] 05/30/22Wednesday, BREE Marquez [address] [place] [address] Licensed Practical Nurse Family Medicine 06/04/23 Jayne Del Valle, RN Licensed Practical Nurse Family Medicine 04/07/2404/30 Merry Paz LPN 05/19/24 documented as of this encounter
--- OUTSIDE RECORDS SUMMARY | 2024-07-30 19:41 | XMS_ITS | Encounter Summary ---
Author Organization [facility] Address [address] [place] [address] Care Team Providers Care Mathematical Physicist Name Role Phone Malcolm Cid MD Primary Care Provider [phone] Source Comments In the event this information is protected by the Federal Confidentiality of Alcohol and Drug AbusePatient Records regulations: The Federal rules restrict any use of the information to criminally investigate or prosecute any alcohol or drug abuse patient.[facility] Encounter Details Date Type Department Care Team (Late st Contact Info) Description 01/24/2019 Patient Msg Rheumatology [address] [place] [address] Provider, Ccf Message from Dr [...] 10/03/2024 8:00 AM EDT Office Visit Rheumatology [address] [place] [address] [place] [address] [place] [address] Return in about 9 months (around 10/03/2024). documented as of this encounter Visit Diagnoses Not on filedocumented in this encounter Care Teams Mathematical Physicist Relationship Specialty Start Date End Date Malcolm Cid MD PCP - General Family Medicine 01/07/15 documented as of this encounter
--- OUTSIDE RECORDS SUMMARY | 2024-07-30 19:41 | XMS_ITS | Encounter Summary ---
Author Organization [facility] Address [address] [place] [address] Care Team Providers Care Energy Advisor Name Role Phone Malcolm Cid MD Primary Care Provider [phone]- [phone] Source Comments In the event this information is protected by the Federal Confidentiality of Alcohol and Drug AbusePatient Records regulations: The Federal rules restrict any use of the information to criminally investigate or prosecute any alcohol or drug abuse patient.[facility] Encounter Details Date Type Department Care Team (Late st Contact Info) Description 01/02/2019 Patient Msg Rheumatology [address] [place] [address] Provider, Ccf Please call our [...] 10/03/2024 8:00 AM EDT Office Visit Rheumatology [address] [place] [address] [place] [address] [place] [address] Return in about 9 months (around 10/03/2024). documented as of this encounter Visit Diagnoses Not on filedocumented in this encounter Care Teams Energy Advisor Relationship Specialty Start Date End Date Malcolm Cid MD PCP - General Family Medicine 01/07/15 documented as of this encounter
--- OUTSIDE RECORDS SUMMARY | 2024-07-30 19:41 | XMS_ITS | Encounter Summary ---
Author Organization [facility] Address [address] [place] [address] Care Team Providers Care Administrative Support Manager Name Role Phone Malcolm Cid MD Primary Care Provider [phone]- [phone] Source Comments In the event this information is protected by the Federal Confidentiality of Alcohol and Drug AbusePatient Records regulations: The Federal rules restrict any use of the information to criminally investigate or prosecute any alcohol or drug abuse patient.[facility] Encounter Details Date Type Department Care Team (Late st Contact Info) Description 04/04/2020 Patient Msg Rheumatology [address] [place], [place] [id number] Provider, Ccf Results Social History Tobacco Use Types Packs/Day Years Used Date Smoking Tobacco: Never Smokeless Tobacco: Current Chew PHQ-2 Answer Date Recorded PHQ-2 score 4 03/31/2020 Area Deprivation Index Answer Date Adis rded National Score (1-100), lower number is lower ri sk Not on file 02/05/2020 State Score (1-10), lower number is lower risk N ot on file 02/05/2020 Data from: https://www.neighborhoodatlas.medicine.[facility].edu/. Last address used for calculation Not on [...] 10/03/2024 8:00 AM EDT Office Visit Rheumatology [address] [place] [address] [place] [address] [place], [place] [id number] Return in about 9 months (around 10/03/2024). documented as of this encounter Visit Diagnoses Not on filedocumented in this encounter Care Teams Administrative Support Manager Relationship Specialty Start Date End Date Malcolm Cid MD PCP - General Family Medicine 01/07/15 documented as of this encounter
--- OUTSIDE RECORDS SUMMARY | 2024-07-30 19:41 | XMS_ITS | Encounter Summary ---
Author Organization [facility] Address [address] [place] [address] Care Team Providers Care Hair Spring Winder Name Role Phone Malcolm Cid MD Primary Care Provider [phone] Malcolm Cid MD Unavailable Wednesday, Alma AQUINON Unavailable [phone] Jayne Del Valle RN Unavailable [phone] Merry Paz PEELED POTATO INSPECTOR Unavailable Unavailable Encounter Details Date Type Department Care Team (Late st Contact Info) Description 06/10/2023 Orders Only [facility] [address] [place] [address] Unallocated, Noms Provider, [address] [place], [place] [address] Social History Tobacco Use Types Packs/Day Years [...] How often do you attend chur or mosque services? More than 4 times per year 09/14/2022 Do you belong to any clubs o r organizations such as buddhism groups, unions, fraternal or athletic groups, or [...] heating? Not very hard 09/14/2022 [facility] of Occupat ional Health - Occupational [...] on filedocumented in this encounter Care Teams Hair Spring Winder Relationship Specialty Start Date End Date Malcolm Cid MD [address] [facility] 110 [place] [address] PCP - General Family Medicine 07/29/22 Malcolm Cid MD [address] [place] [address] PCP - [facility] 05/30/22Wednesday, BREE Marquez [address] [place] [address] Licensed Practical Nurse Family Medicine 06/04/23 Jayne Del Valle, RN Licensed Practical Nurse Family Medicine 04/07/2404/30 Merry Paz LPN 05/19/24 documented as of this encounter
--- OUTSIDE RECORDS SUMMARY | 2024-07-30 19:41 | XMS_ITS | Encounter Summary ---
Author Organization [facility] Address [address] [place] [address] Care Team Providers Care Merchandising Execution Manager Name Role Phone Malcolm Cid MD Primary Care Provider [phone] Source Comments In the event this information is protected by the Federal Confidentiality of Alcohol and Drug AbusePatient Records regulations: The Federal rules restrict any use of the information to criminally investigate or prosecute any alcohol or drug abuse patient.[facility] Encounter Details Date Type Department Care Team (Late st Contact Info) Description 12/28/2018 Patient Msg Rheumatology [address] [place] [address] Provider, Ccf Update on insurance [...] 10/03/2024 8:00 AM EDT Office Visit Rheumatology [address] [place] [address] [place] [address] [place] [address] Return in about 9 months (around 10/03/2024). documented as of this encounter Visit Diagnoses Not on filedocumented in this encounter Care Teams Merchandising Execution Manager Relationship Specialty Start Date End Date Malcolm Cid MD PCP - General Family Medicine 01/07/15 documented as of this encounter
--- OUTSIDE RECORDS SUMMARY | 2024-07-30 19:41 | XMS_ITS | Encounter Summary ---
Author Organization [facility] Address [address] [place] [address] Care Team Providers Care Industrial Design Intern Name Role Phone Malcolm Cid MD Primary Care Provider +1- [phone] Source Comments In the event this information is protected by the Federal Confidentiality of Alcohol and Drug AbusePatient Records regulations: The Federal rules restrict any use of the information to criminally investigate or prosecute any alcohol or drug abuse patient.[facility] Encounter Details Date Type Department Care Team (Late st Contact Info) Description 10/28/2018 Patient Msg Rheumatology [address] [place], [place] [id number] Provider, Ccf Dr Castro reply Social History [...] 10/03/2024 8:00 AM EDT Office Visit Rheumatology [address] [place] [address] [place] [address] [place] [address] Return in about 9 months (around 10/03/2024). documented as of this encounter Visit Diagnoses Not on filedocumented in this encounter Care Teams Industrial Design Intern Relationship Specialty Start Date End Date Malcolm Cid MD PCP - General Family Medicine 01/07/15 documented as of this encounter
--- OUTSIDE RECORDS SUMMARY | 2024-07-30 19:41 | XMS_ITS | Encounter Summary ---
Author Organization [facility] Address [address] [place] [address] Care Team Providers Care Manager Combination Name Role Phone Malcolm Cid MD Primary Care Provider +1- [phone] Source Comments In the event this information is protected by the Federal Confidentiality of Alcohol and Drug AbusePatient Records regulations: The Federal rules restrict any use of the information to criminally investigate or prosecute any alcohol or drug abuse patient.[facility] Encounter Details Date Type Department Care Team (Late st Contact Info) Description 11/25/2018 Patient Msg Rheumatology [address] [place], [place] [phone] [place] [address] [place], [place] [id number] December lab reminder Social History Tobacco Use [...] 10/03/2024 8:00 AM EDT Office Visit Rheumatology [address] [place] [address] [place] [address] [place] [address] Return in about 9 months (around 10/03/2024). documented as of this encounter Visit Diagnoses Not on filedocumented in this encounter Care Teams Manager Combination Relationship Specialty Start Date End Date Malcolm Cid MD PCP - General Family Medicine 01/07/15 documented as of this encounter
--- OUTSIDE RECORDS SUMMARY | 2024-07-30 19:41 | XMS_ITS | Encounter Summary ---
Author Organization [facility] Address [address] [place] [address] Care Team Providers Care Joinery Factory Worker Name Role Phone Malcolm Cid MD Primary Care Provider +1- [phone] Source Comments In the event this information is protected by the Federal Confidentiality of Alcohol and Drug AbusePatient Records regulations: The Federal rules restrict any use of the information to criminally investigate or prosecute any alcohol or drug abuse patient.[facility] Encounter Details Date Type Department Care Team (Late st Contact Info) Description 12/27/2018 Patient Msg Rheumatology [address] [place], [place] [id number] Provider, Ccf reply Social History Tobacco Use [...] 10/03/2024 8:00 AM EDT Office Visit Rheumatology [address] [place] [address] [place] [address] [place] [address] Return in about 9 months (around 10/03/2024). documented as of this encounter Visit Diagnoses Not on filedocumented in this encounter Care Teams Joinery Factory Worker Relationship Specialty Start Date End Date Malcolm Cid MD PCP - General Family Medicine 01/07/15 documented as of this encounter
--- OUTSIDE RECORDS SUMMARY | 2024-07-30 19:41 | XMS_ITS | Encounter Summary ---
Author Organization [facility] Address [address] [place] [address] Care Team Providers Care Medicaid Business Analyst Name Role Phone Malcolm Cid MD Primary Care Provider +1- [phone] Source Comments In the event this information is protected by the Federal Confidentiality of Alcohol and Drug AbusePatient Records regulations: The Federal rules restrict any use of the information to criminally investigate or prosecute any alcohol or drug abuse patient.[facility] Encounter Details Date Type Department Care Team (Late st Contact Info) Description 04/22/2018 Patient Msg Rheumatology [address] [place], [place] [phone] [place] [address] [place], [place] [phone] Previsit lab reminder Social History Tobacco Use [...] 10/03/2024 8:00 AM EDT Office Visit Rheumatology [address] [place] [address] [place] [address] [place] [address] Return in about 9 months (around 10/03/2024). documented as of this encounter Visit Diagnoses Not on filedocumented in this encounter Care Teams Medicaid Business Analyst Relationship Specialty Start Date End Date Malcolm Cid MD PCP - General Family Medicine 01/07/15 documented as of this encounter
--- OUTSIDE RECORDS SUMMARY | 2024-07-30 19:41 | XMS_ITS | Encounter Summary ---
Author Organization [facility] Address [address] [place] [address] Care Team Providers Care Napper Runner Name Role Phone Malcolm Cid MD Primary Care Provider [phone] Malcolm Cid MD Unavailable Wednesday, Alma AQUINON Unavailable [phone] Jayne Del Valle RN Unavailable [phone] Merry Paz GUT DROPPER Unavailable Unavailable Reason for Visit * Reason Onset Date Comments Med Refill 09/20/2023 Encounter Details Date Type Department Care Team (Late st Contact Info) Description 09/20/2023 Refill [facility] [address] [facility] 110 [place] [address] Marina Proctor, PA [address] [place] [address] 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 rheumatoid factor ([facility]/HCC) Social History Tobacco Use Types Packs/Day [...] How often do you attend chur or adventist services? More than 4 times per year [...] heating? Not very hard 09/14/2022 [facility] of Occupat ional Health - Occupational Stress [...] (CMS/HCC) documented in this encounter Care Teams Napper Runner Relationship Specialty Start Date End Date Malcolm Cid MD [address] [place] [address] 110 [place] [address] PCP - General Family Medicine 07/29/22 Malcolm Cid MD [address] [facility] 110 [place] [address] PCP - [facility] 05/30/22Wednesday, BREE Marquez [address] [facility] 110 [place] [address] Licensed Practical Nurse Family Medicine 06/04/23 Jayne Del Valle, RN Licensed Practical Nurse Family Medicine 04/07/2404/30 Merry Paz LPN 05/19/24 documented as of this encounter
--- OUTSIDE RECORDS SUMMARY | 2024-07-30 19:41 | XMS_ITS | Encounter Summary ---
Author Organization [facility] Address [address] [place] [address] Care Team Providers Care Veneer Joiner Name Role Phone Malcolm Cid MD Primary Care Provider [phone] Malcolm Cid MD Unavailable Wednesday, Alma AQUINON Unavailable [phone] Jayne Del Valle RN Unavailable Merry Paz ENVIRONMENTAL EDUCATION SPECIALIST Unavailable Unavailable Encounter Details Date Type Department Care Team (Late st Contact Info) Description 03/09/2023 Abstract [facility] [address] [facility] 110 [place] [id number] Malcolm Cid MD 112 [facility] 110 [place], [place] [id number] Social History Tobacco Use Types Packs/Day Years [...] any clubs o r organizations such as tenriism groups, unions, fraternal or athletic groups, or [...] in a custodial (including now)? No 09/14/2022 Sex and Gender [...] on filedocumented in this encounter Care Teams Veneer Joiner Relationship Specialty Start Date End Date Malcolm Cid MD [address] [place] [address] PCP - General Family Medicine 07/29/22 Malcolm Cid MD [address] [place] [address] PCP - [facility] 05/30/22Wednesday, BREE Marquez [address] [place] [address] Licensed Practical Nurse Family Medicine 06/04/23 Jayne Del Valle, RN Licensed Practical Nurse Family Medicine 04/07/2404/30 Merry Paz LPN 05/19/24 documented as of this encounter
--- OUTSIDE RECORDS SUMMARY | 2024-07-30 19:41 | XMS_ITS | Patient Health Record ---
Author Organization [facility] Address [address] [place] [address] Care Team Providers Care Triage Technician Name Role Phone Malcolm Cid MD Primary Care Provider Juan José Casey Unavailable [phone] Reason For Referral No Information Medications Medication [...] Risk Notes Problem Contusion of right knee ([id number]) Contusion of right knee, subsequent encounter (S80.01XD) Active confirmed Problem Enthesopathy of knee (99314498) Knee bursitis, right (M70.51) Active confirmed Problem [id number] Acute gout of right knee, 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) Active confirmed Problem Contusion of knee (48898760) Contusion of knee, right (S80.01XA) Inactive confirmed [...] Coverage Start Date Coverage End Date [facility] [place] [address] [place] [address] [id number] TRU SALDIVAR Self - patient is the insured Medical (General) History Medical History History ICD Code Depression High Blood Pressure Anxiety Surgical History Surgery Date(Month/Year) Knee arthroscopy 01/2023 Shoulder surgery, left 03/2021
--- OUTSIDE RECORDS SUMMARY | 2024-07-30 19:41 | XMS_ITS | Encounter Summary ---
Author Organization [facility] Address [address] [place] [address] Care Team Providers Care Envelope Folding Machine Adjuster Name Role Phone Malcolm Cid MD Primary Care Provider [phone] Malcolm Cid MD Unavailable Wednesday, Alma AQUINON Unavailable [phone] Jayne Del Valle RN Unavailable [phone] Merry Paz LPN Unavailable Unavailable Encounter Details Date Type Department Care Team (Late st Contact Info) Description 06/15/2023 Orders Only [facility] [address] [place] [address] A, Unknown Practice [address] [place] [address] Social History Tobacco Use Types Packs/Day Years [...] How often do you attend chur or jain services? More than 4 times per year [...] on filedocumented in this encounter Care Teams Envelope Folding Machine Adjuster Relationship Specialty Start Date End Date Malcolm Cid MD [address] [place] [address] PCP - General Family Medicine 07/29/22 Malcolm Cid MD [address] [place] [address] PCP - [facility] 05/30/22WednesdayAlma LPN [address] [place] [address] Licensed Practical Nurse Family Medicine 06/04/23 Jayne Del Valle, RN Licensed Practical Nurse Family Medicine 04/07/2404/30 Merry Paz LPN 05/19/24 documented as of this encounter
--- OUTSIDE RECORDS SUMMARY | 2024-07-30 19:41 | XMS_ITS | Encounter Summary ---
Author Organization [facility] Address [address] [place] [address] Care Team Providers Care Facilities Mechanical Design Engineer Name Role Phone Malcolm Cid MD Primary Care Provider [phone] Malcolm Cid MD Unavailable Wednesday, Alma AQUINON Unavailable [phone] Jayne Del Valle RN Unavailable Merry Paz ADMINISTRATIVE UNDERWRITER Unavailable Unavailable Encounter Details Date Type Department Care Team (Late st Contact Info) Description 06/15/2023 Abstract [facility] [address] [facility] 110 [place] [id number] Malcolm Cid MD 112 [facility] 110 [place], [place] [id number] Social History Tobacco Use Types Packs/Day Years [...] How often do you attend chur or mandaeism services? More than 4 times per year [...] care, and heating? Not very hard 09/14/2022 [facility] - Occupational [...] on filedocumented in this encounter Care Teams Facilities Mechanical Design Engineer Relationship Specialty Start Date End Date Malcolm Cid MD [address] [facility] [address] [place] [address] PCP - General Family Medicine 07/29/22 Malcolm Cid MD [address] [place] [address] PCP - [facility] 05/30/22Wednesday, BREE Marquez [address] [place] [address] Licensed Practical Nurse Family Medicine 06/04/23 Jayne Del Valle, RN Licensed Practical Nurse Family Medicine 04/07/2404/30 Merry Paz LPN 05/19/24 documented as of this encounter
--- OUTSIDE RECORDS SUMMARY | 2024-07-30 19:42 | XMS_ITS | Encounter Summary ---
Author Organization [facility] Address [address] [place] [address] Care Team Providers Care Night Manager Name Role Phone Malcolm Cid MD Primary Care Provider [phone] Source Comments In the event this information is protected by the Federal Confidentiality of Alcohol and Drug AbusePatient Records regulations: The Federal rules restrict any use of the information to criminally investigate or prosecute any alcohol or drug abuse patient.[facility] Encounter Details Date Type Department Care Team (Late st Contact Info) Description 08/19/2020 Patient Msg Rheumatology [address] [place], [place] [id number] [place] [address] [place] [address] October lab reminder Social History Tobacco Use Types Packs/Day Years Used Date Smoking Tobacco: Never Smokeless Tobacco: Current Chew PHQ-2 Answer Date Recorded PHQ-2 score 3 08/19/2020 Area Deprivation Index Answer Date Adis rded National Score (1-100), lower number is lower ri sk Not on file 02/05/2020 State Score (1-10), lower number is lower risk N ot on file 02/05/2020 Data from: https://www.neighborhoodatlas.[facility]/. Last address used for calculation Not [...] 10/03/2024 8:00 AM EDT Office Visit Rheumatology [address] [place], [place] [address] [place] [address] [place], [place] [address] Return in about 9 months (around 10/03/2024). documented as of this encounter Visit Diagnoses Not on filedocumented in this encounter Care Teams Night Manager Relationship Specialty Start Date End Date Malcolm Cid MD PCP - General Family Medicine 01/07/15 documented as of this encounter
--- OUTSIDE RECORDS SUMMARY | 2024-07-30 19:42 | XMS_ITS | Encounter Summary ---
Author Organization [facility] Address [address] [place] [address] Care Team Providers Care Link Trainer Maintenance Worker Name Role Phone Malcolm Cid MD Primary Care Provider [phone] Source Comments In the event this information is protected by the Federal Confidentiality of Alcohol and Drug AbusePatient Records regulations: The Federal rules restrict any use of the information to criminally investigate or prosecute any alcohol or drug abuse patient.[facility] Encounter Details Date Type Department Care Team (Late st Contact Info) Description 08/19/2020 Patient Msg Rheumatology [address] [place], [place] [address] [place] [address] [place] [address] August lab reminder Social History Tobacco Use Types Packs/Day Years Used Date Smoking Tobacco: Never Smokeless Tobacco: Current Chew PHQ-2 Answer Date Recorded PHQ-2 score 3 08/19/2020 Area Deprivation Index Answer Date Adis rded National Score (1-100), lower number is lower ri sk Not on file 02/05/2020 State Score (1-10), lower number is lower risk N ot on file 02/05/2020 Data from: https://www.neighborhoodatlas.[facility]/. Last address used for calculation Not [...] 10/03/2024 8:00 AM EDT Office Visit Rheumatology [address] [place], [place] 38[address] [place] [address] [place], [place] [address] Return in about 9 months (around 10/03/2024). documented as of this encounter Visit Diagnoses Not on filedocumented in this encounter Care Teams Link Trainer Maintenance Worker Relationship Specialty Start Date End Date Malcolm Cid MD PCP - General Family Medicine 01/07/15 documented as of this encounter
--- OUTSIDE RECORDS SUMMARY | 2024-07-30 19:42 | XMS_ITS | Encounter Summary ---
Author Organization [facility] Address [address] [place] [address] Care Team Providers Care Pit Crane Operator Name Role Phone Malcolm Cid MD Primary Care Provider [phone] Malcolm Cid MD Unavailable Wednesday, Alma DORMITORY KEEPER Unavailable [phone] Jayne Del Valle RN Unavailable Merry Paz DORMITORY KEEPER Unavailable Unavailable Encounter Details Date Type Department Care Team (Late st Contact Info) Description 08/10/2022 Orders Only [facility] [address] [facility] 110 [place] [address] Stephen Shields MD [address] [place] [address] Social History Tobacco Use Types Packs/Day Years [...] on filedocumented in this encounter Care Teams Pit Crane Operator Relationship Specialty Start Date End Date Malcolm Cid MD [address] [place] [address] PCP - General Family Medicine 07/29/22 Malcolm Cid MD [address] [place] [address] PCP - [facility] 05/30/22WednesdayAlma LPN [address] [place] [address] Licensed Practical Nurse Family Medicine 06/04/23 Jayne Del Valle, RN Licensed Practical Nurse Family Medicine 04/07/2404/30 Merry Paz LPN 05/19/24 documented as of this encounter
--- OUTSIDE RECORDS SUMMARY | 2024-07-30 19:42 | XMS_ITS | Encounter Summary ---
Author Organization [facility] Address [address] [place] [address] Care Team Providers Care Group Home Worker Name Role Phone Malcolm Cid MD Primary Care Provider [phone] Malcolm Cid MD Unavailable Wednesday, Alma GARMENT FOLDER Unavailable [phone] Jayne Del Valle RN Unavailable Merry Paz GARMENT FOLDER Unavailable Unavailable Encounter Details Date Type Department Care Team (Late st Contact Info) Description 08/17/2022 Abstract [facility] [address] [facility] [address] [place] [address] Malcolm Cid MD [address] [place] [address] Social History Tobacco Use Types Packs/Day Years [...] on filedocumented in this encounter Care Teams Group Home Worker Relationship Specialty Start Date End Date Malcolm Cid MD [address] [place], [place] [address] PCP - General Family Medicine 5/31/23 Malcolm Cid MD [address] [place] [address] PCP - [facility] 05/30/22Wednesday, BREE Marquez [address] [place] [address] Licensed Practical Nurse Family Medicine 06/04/23 Jayne Del Valle, RN Licensed Practical Nurse Family Medicine 04/07/2404/30 Merry Paz LPN 05/19/24 documented as of this encounter
--- OUTSIDE RECORDS SUMMARY | 2024-07-30 19:42 | XMS_ITS | Encounter Summary ---
Author Organization [facility] Address [facility] [place] [address] Care Team Providers Care Store Sales Consultant Name Role Phone Malcolm Cid MD Primary Care Provider [phone] Source Comments In the event this information is protected by the Federal Confidentiality of Alcohol and Drug AbusePatient Records regulations: The Federal rules restrict any use of the information to criminally investigate or prosecute any alcohol or drug abuse patient.[facility] Encounter Details Date Type Department Care Team (Late st Contact Info) Description 09/17/2020 Patient Msg Kidney Medicine [address] [place], [place] [id number] Madonna Serrano, CLASSROOM AIDE.MANAGED CARE PROVIDER [address] [place] [address] RE: BP Social History Tobacco Use Types Packs/Day Years Used Date Smoking Tobacco: Never Smokeless Tobacco: Current Chew PHQ-2 Answer Date Recorded PHQ-2 score 3 08/19/2020 Area Deprivation Index Answer Date Adis rded National Score (1-100), lower number is lower ri sk Not on file 02/05/2020 State Score (1-10), lower number is lower risk N ot on file 02/05/2020 Data from: https://www.neighborhoodatlas.[facility]/. Last address used for calculation Not [...] 10/03/2024 8:00 AM EDT Office Visit Rheumatology [address] [place], [place] [address] [place] [address] [place], [place] [address] Return in about 9 months (around 10/03/2024). documented as of this encounter Visit Diagnoses Not on filedocumented in this encounter Care Teams Store Sales Consultant Relationship Specialty Start Date End Date Malcolm Cid MD PCP - General Family Medicine 01/07/15 documented as of this encounter
--- OUTSIDE RECORDS SUMMARY | 2024-07-30 19:42 | XMS_ITS | Encounter Summary ---
Author Organization [facility] Address [facility] [place] [address] Care Team Providers Care Vascular Physician Name Role Phone Malcolm Cid MD Primary Care Provider [phone] Source Comments In the event this information is protected by the Federal Confidentiality of Alcohol and Drug AbusePatient Records regulations: The Federal rules restrict any use of the information to criminally investigate or prosecute any alcohol or drug abuse patient.[facility] Encounter Details Date Type Department Care Team (Late st Contact Info) Description 11/29/2020 Get Medical Advice Kidney Medicine [address] [place], [place] [address] Madonna Serrano, STUDIO HAND.SUMMER COUNSELOR [address] [place] [address] RE: Test Result Question Social [...] N ot on file 02/05/2020 Data from: https://www.neighborhoodatlas.[facility]/. Last address used for calculation Not [...] 10/03/2024 8:00 AM EDT Office Visit Rheumatology [address] [place], [place] [address] [place] [address] [place], [place] [address] Return in about 9 months (around 10/03/2024). documented as of this encounter Visit Diagnoses Not on filedocumented in this encounter Care Teams Vascular Physician Relationship Specialty Start Date End Date Malcolm Cid MD PCP - General Family Medicine 01/07/15 documented as of this encounter
--- OUTSIDE RECORDS SUMMARY | 2024-07-30 19:42 | XMS_ITS | Encounter Summary ---
Author Organization [facility] Address [address] [place] [address] Care Team Providers Care Fraud Manager Name Role Phone Malcolm Cid MD Primary Care Provider [phone] Source Comments In the event this information is protected by the Federal Confidentiality of Alcohol and Drug AbusePatient Records regulations: The Federal rules restrict any use of the information to criminally investigate or prosecute any alcohol or drug abuse patient.[facility] Encounter Details Date Type Department Care Team (Late st Contact Info) Description 12/02/2020 Patient Msg Rheumatology [address] [place], [place] 1287[address] [place] [address] [place] [address] Lab reminder Social History Tobacco Use Types Packs/Day Years Used Date Smoking Tobacco: Never Smokeless Tobacco: Current Chew PHQ-2 Answer Date Recorded PHQ-2 score 3 08/19/2020 Area Deprivation Index Answer Date Adis rded National Score (1-100), lower number is lower ri sk Not on file 02/05/2020 State Score (1-10), lower number is lower risk N ot on file 02/05/2020 Data from: https://www.neighborhoodatlas.[facility]/. Last address used for calculation Not on [...] 10/03/2024 8:00 AM EDT Office Visit Rheumatology [address] [place], [place] [address] [place] [address] [place], [place] [address] Return in about 9 months (around 10/03/2024). documented as of this encounter Visit Diagnoses Not on filedocumented in this encounter Care Teams Fraud Manager Relationship Specialty Start Date End Date Malcolm Cid MD PCP - General Family Medicine 01/07/15 documented as of this encounter
--- OUTSIDE RECORDS SUMMARY | 2024-07-30 19:42 | XMS_ITS | Encounter Summary ---
Author Organization [facility] Address [address] [place] [address] Care Team Providers Care Bill Of Lading Clerk Name Role Phone Malcolm Cid MD Primary Care Provider [phone] Malcolm Cid MD Unavailable Wednesday, Alma AQUINON Unavailable Jayne Del Valle RN Unavailable [phone] Merry Paz BALL POINT SPLITTER Unavailable Unavailable Encounter Details Date Type Department Care Team (Late st Contact Info) Description 04/21/2023 Orders Only [facility] [address] [place] [address] [place] [address] A, Unknown Practice [address] [place] [address] Social History Tobacco Use Types Packs/Day Years [...] any clubs o r organizations such as quaker groups, unions, fraternal or athletic groups, or [...] care, and heating? Not very hard 09/14/2022 [facility] Occupat ional [...] on filedocumented in this encounter Care Teams Bill Of Lading Clerk Relationship Specialty Start Date End Date Malcolm Cid MD [address] [facility] 110 [place] [address] PCP - General Family Medicine 07/29/22 Malcolm Cid MD [address] [facility] 110 [place] [address] PCP - [facility] 05/30/22Wednesday, BREE Marquez 112 [facility] [address] [place] [address] Licensed Practical Nurse Family Medicine 06/04/23 Jayne Del Valle, RN Licensed Practical Nurse Family Medicine 04/07/2404/30 Merry Paz LPN 05/19/24 documented as of this encounter
--- OUTSIDE RECORDS SUMMARY | 2024-07-30 19:42 | XMS_ITS | Encounter Summary ---
Author Organization [facility] Address [address] [place] [address] Care Team Providers Care Student Teacher Name Role Phone Malcolm Cid MD Primary Care Provider [phone] Malcolm Cid MD Unavailable Wednesday, Alma AQUINON Unavailable [phone] Jayne Del Valle RN Unavailable Merry Paz ANALYTICAL ENGINEER Unavailable Unavailable Encounter Details Date Type Department Care Team (Late st Contact Info) Description 02/16/2023 Abstract [facility] [address] [facility] [address] [place] [address] Malcolm Cid MD 112 [facility] 110 [place], [place] [address] Social History Tobacco Use Types Packs/Day Years [...] How often do you attend chur or adventism services? More than 4 times per year [...] care, and heating? Not very hard 09/14/2022 [facility]at [facility] Health - Occupational Stress [...] on filedocumented in this encounter Care Teams Student Teacher Relationship Specialty Start Date End Date Malcolm Cid MD [address] [place] [address] PCP - General Family Medicine 07/29/22 Malcolm Cid MD [address] [place] [address] PCP - [facility] 05/30/22Wednesday, BREE Marquez [address] [place] [address] Licensed Practical Nurse Family Medicine 06/04/23 Jayne Del Valle, RN Licensed Practical Nurse Family Medicine 04/07/2404/30 Merry Paz LPN 05/19/24 documented as of this encounter
--- OUTSIDE RECORDS SUMMARY | 2024-07-30 19:42 | XMS_ITS | Encounter Summary ---
Author Organization [facility] Address [address] [place] [address] Care Team Providers Care Wad Printing Machine Operator Name Role Phone Malcolm Cid MD Primary Care Provider [phone] Source Comments In the event this information is protected by the Federal Confidentiality of Alcohol and Drug AbusePatient Records regulations: The Federal rules restrict any use of the information to criminally investigate or prosecute any alcohol or drug abuse patient.[facility] Encounter Details Date Type Department Care Team (Late st Contact Info) Description 08/19/2020 Patient Msg Rheumatology [address] [place], [place] [address] [place] [address] [place] [address] September lab reminder Social History Tobacco Use Types Packs/Day Years Used Date Smoking Tobacco: Never Smokeless Tobacco: Current Chew PHQ-2 Answer Date Recorded PHQ-2 score 3 08/19/2020 Area Deprivation Index Answer Date Adis rded National Score (1-100), lower number is lower ri sk Not on file 02/05/2020 State Score (1-10), lower number is lower risk N ot on file 02/05/2020 Data from: https://www.neighborhoodatlas.[facility]/. Last address used for calculation Not [...] 10/03/2024 8:00 AM EDT Office Visit Rheumatology [address] [place], [place] 25[address] [place] [address] [place], [place] [address] Return in about 9 months (around 10/03/2024). documented as of this encounter Visit Diagnoses Not on filedocumented in this encounter Care Teams Wad Printing Machine Operator Relationship Specialty Start Date End Date Malcolm Cid MD PCP - General Family Medicine 01/07/15 documented as of this encounter
--- OUTSIDE RECORDS SUMMARY | 2024-07-30 19:42 | XMS_ITS | Encounter Summary ---
Author Organization [facility] Address [address] [place] [address] Care Team Providers Care Job Counselor Name Role Phone Malcolm Cid MD Primary Care Provider [phone] Malcolm Cid MD Unavailable Wednesday, Alma AQUINON Unavailable [phone] Jayne Del Vlale RN Unavailable Merry Paz INDUCTION COORDINATION POWER ENGINEER Unavailable Unavailable Encounter Details Date Type Department Care Team (Late st Contact Info) Description 02/15/2023 Abstract [facility] [address] [facility] [address] [place] [address] Malcolm Cid MD 112 [facility] 110 [place], [place] [address] Social History Tobacco Use Types Packs/Day Years [...] on filedocumented in this encounter Care Teams Job Counselor Relationship Specialty Start Date End Date Malcolm Cid MD [address] [place] [address] PCP - General Family Medicine 07/29/22 Malcolm Cid MD [address] [place] [address] PCP - [facility] 05/30/22Wednesday, BREE Marquez [address] [place] [address] Licensed Practical Nurse Family Medicine 06/04/23 Jayne Del Valle, RN Licensed Practical Nurse Family Medicine 04/07/2404/30 Merry Paz LPN 05/19/24 documented as of this encounter
--- OUTSIDE RECORDS SUMMARY | 2024-07-30 19:42 | XMS_ITS | Encounter Summary ---
Author Organization [facility] Address [address] [place] [address] Care Team Providers Care Spinner Fixer Name Role Phone Malcolm Cid MD Primary Care Provider [phone] Source Comments In the event this information is protected by the Federal Confidentiality of Alcohol and Drug AbusePatient Records regulations: The Federal rules restrict any use of the information to criminally investigate or prosecute any alcohol or drug abuse patient.[facility] Encounter Details Date Type Department Care Team (Late st Contact Info) Description 07/29/2017 Patient Msg Neurology [address] [place] [address] Provider, [facility] Follow up - [...] 10/03/2024 8:00 AM EDT Office Visit Rheumatology [address] [place] [address] [place] [address] [place] [address] Return in about 9 months (around 10/03/2024). documented as of this encounter Visit Diagnoses Not on filedocumented in this encounter Care Teams Spinner Fixer Relationship Specialty Start Date End Date Malcolm Cid MD PCP - General Family Medicine 01/07/15 documented as of this encounter
--- OUTSIDE RECORDS SUMMARY | 2024-07-30 19:42 | XMS_ITS | Encounter Summary ---
Author Organization [facility] Address [address] [place] [address] Care Team Providers Care Brand Lead Name Role Phone Malcolm Cid MD Primary Care Provider [phone] Malcolm Cid MD Unavailable Wednesday, Alma AQUINON Unavailable [phone] Jayne Del Valle RN Unavailable [phone] Merry Paz SANDFILL OPERATOR SURFACE Unavailable Unavailable Encounter Details Date Type Department Care Team (Late st Contact Info) Description 02/15/2023 Orders Only [facility] [address] [place] [address] A, Unknown Practice [address] [place] [address] Social History Tobacco Use Types Packs/Day Years [...] a care home (including now)? No 09/14/2022 Sex and [...] Laterality Modality Lower Extremities, Knee Right [facility] Unknown Practice A IMG XR PROCEDURES Final Resul t documented in this encounter Visit Diagnoses Not on filedocumented in this encounter Care Teams Brand Lead Relationship Specialty Start Date End Date Malcolm Cid MD 112 [facility] 110 [place] [address] PCP - General Family Medicine 07/29/22 Malcolm Cid MD [address] [place] [address] PCP - [facility] 05/30/22Wednesday, BREE Marquez [address] [place] [address] Licensed Practical Nurse Family Medicine 06/04/23 Jayne Del Valle, DELMIS Licensed Practical Nurse Family Medicine 04/07/2404/30 Merry Paz LPN 05/19/24 documented as of this encounter
--- OUTSIDE RECORDS SUMMARY | 2024-07-30 19:42 | XMS_ITS | Encounter Summary ---
Author Organization [facility] Address [address] [place] [address] Care Team Providers Care Planetarium Sky Show Technician Name Role Phone Malcolm Cid MD Primary Care Provider [phone]- [phone] Source Comments In the event this information is protected by the Federal Confidentiality of Alcohol and Drug AbusePatient Records regulations: The Federal rules restrict any use of the information to criminally investigate or prosecute any alcohol or drug abuse patient.[facility] Encounter Details Date Type Department Care Team (Late st Contact Info) Description 12/02/2020 Patient Msg Rheumatology [address] [place], [place] [id number] [place] [address] [place] [address] Previsit lab reminder Social History Tobacco Use Types Packs/Day Years Used Date Smoking Tobacco: Never Smokeless Tobacco: Current Chew PHQ-2 Answer Date Recorded PHQ-2 score 3 08/19/2020 Area Deprivation Index Answer Date Adis rded National Score (1-100), lower number is lower ri sk Not on file 02/05/2020 State Score (1-10), lower number is lower risk N ot on file 02/05/2020 Data from: https://www.neighborhoodatlas.[facility]/. Last address used for calculation Not [...] 10/03/2024 8:00 AM EDT Office Visit Rheumatology [address] [place] [address] [place] [address] [place], [place] [address] Return in about 9 months (around 10/03/2024). documented as of this encounter Visit Diagnoses Not on filedocumented in this encounter Care Teams Planetarium Sky Show Technician Relationship Specialty Start Date End Date Malcolm Cid MD PCP - General Family Medicine 01/07/15 documented as of this encounter
--- OUTSIDE RECORDS SUMMARY | 2024-07-30 19:42 | XMS_ITS | Encounter Summary ---
Author Organization [facility] Address [address] [place] [address] Care Team Providers Care Pitch Gatherer Name Role Phone Malcolm Cid MD Primary Care Provider [phone]- [phone] Source Comments In the event this information is protected by the Federal Confidentiality of Alcohol and Drug AbusePatient Records regulations: The Federal rules restrict any use of the information to criminally investigate or prosecute any alcohol or drug abuse patient.[facility] Encounter Details Date Type Department Care Team (Late st Contact Info) Description 09/09/2022 Get Medical Advice Rheumatology [address] [place], [place] [id number] [place] [address] [place] [address] Return to work form. Social History Tobacco Use Types Packs/Day Years Used Date Smoking Tobacco: Never Smokeless Tobacco: Current Chew PHQ-2 Answer Date Recorded PHQ-2 score 4 08/13/2022 Area Deprivation Index Answer Date Adis rded National Score (1-100), lower number is lower ri sk 87 08/14/2022 State Score (1-10), lower number is lower risk 8 08/14/2022 Data from: https://www.[facility] hospitalatlas.[facility]/. Last address used for calculation Thong [...] 10/03/2024 8:00 AM EDT Office Visit Rheumatology [address] [place], [place] 116[address] [place] [address] [place], [place] [id number] Return in about 9 months (around 10/03/2024). documented as of this encounter Visit Diagnoses Not on filedocumented in this encounter Care Teams Pitch Gatherer Relationship Specialty Start Date End Date Malcolm Cid MD PCP - General Family Medicine 01/07/15 documented as of this encounter
--- OUTSIDE RECORDS SUMMARY | 2024-07-30 19:42 | XMS_ITS | Encounter Summary ---
Author Organization [facility] Address [address] [place] [address] Care Team Providers Care Seed Laboratory Assistant Name Role Phone Malcolm Cid MD Primary Care Provider [phone] Malcolm Cid MD Unavailable Wednesday, Alma AQUINON Unavailable [phone] Jayne Del Valle RN Unavailable [phone] Merry Paz INTERNET RESEARCHER Unavailable Unavailable Encounter Details Date Type Department Care Team (Late st Contact Info) Description 02/16/2023 Abstract [facility] [address] [facility] 110 [place] [id number] Malcolm Cid MD 112 [facility] 110 [place], [place] [address] Social History Tobacco Use Types Packs/Day Years [...] on filedocumented in this encounter Care Teams Seed Laboratory Assistant Relationship Specialty Start Date End Date Malcolm Cid MD [address] [place] [address] PCP - General Family Medicine 07/29/22 Malcolm Cid MD [address] [place] [address] PCP - [facility] 05/30/22Wednesday, BREE Marquez [address] [place] [address] Licensed Practical Nurse Family Medicine 06/04/23 Jayne Del Valle, RN Licensed Practical Nurse Family Medicine 04/07/2404/30 Merry Paz LPN 05/19/24 documented as of this encounter
--- OUTSIDE RECORDS SUMMARY | 2024-07-30 19:42 | XMS_ITS | Encounter Summary ---
Author Organization [facility] Address [address] [place] [address] Care Team Providers Care Machine Trimmer Name Role Phone Malcolm Cid MD Primary Care Provider [phone]- [phone] Source Comments In the event this information is protected by the Federal Confidentiality of Alcohol and Drug AbusePatient Records regulations: The Federal rules restrict any use of the information to criminally investigate or prosecute any alcohol or drug abuse patient.[facility] Encounter Details Date Type Department Care Team (Late st Contact Info) Description 03/08/2023 Patient Msg Rheumatology [address] [place], [place] 5712[address] [place] [address] [place], [place] [id number] Previsit lab reminder Social History Tobacco Use Types Packs/Day Years Used Date Smoking Tobacco: Never Smokeless Tobacco: Current Chew PHQ-2 Answer Date Recorded PHQ-2 score 4 08/13/2022 Area Deprivation Index Answer Date Adis rded National Score (1-100), lower number is lower ri sk 87 08/14/2022 State Score (1-10), lower number is lower risk 8 08/14/2022 Data from: https://www.neighborhoodatlas.[facility]/. Last address used for calculation Thong [...] 10/03/2024 8:00 AM EDT Office Visit Rheumatology [address] [place], [place] [address] [place] [address] [place], [place] [id number] Return in about 9 months (around 10/03/2024). documented as of this encounter Visit Diagnoses Not on filedocumented in this encounter Care Teams Machine Trimmer Relationship Specialty Start Date End Date Malcolm Cid MD PCP - General Family Medicine 01/07/15 documented as of this encounter
--- OUTSIDE RECORDS SUMMARY | 2024-07-30 19:42 | XMS_ITS | Encounter Summary ---
Author Organization [facility] Address [address] [place] [address] Care Team Providers Care Fruit Thinner Name Role Phone Malcolm Cid MD Primary Care Provider [phone]- [phone] Source Comments In the event this information is protected by the Federal Confidentiality of Alcohol and Drug AbusePatient Records regulations: The Federal rules restrict any use of the information to criminally investigate or prosecute any alcohol or drug abuse patient.[facility] Encounter Details Date Type Department Care Team (Late st Contact Info) Description 08/14/2022 Patient Msg Rheumatology [address] [place], [place] 258[address] [place] [address] [place] [address] Previsit lab reminder Social History Tobacco Use Types Packs/Day Years Used Date Smoking Tobacco: Never Smokeless Tobacco: Current Chew PHQ-2 Answer Date Recorded PHQ-2 score 4 08/13/2022 Area Deprivation Index Answer Date Adis rded National Score (1-100), lower number is lower ri sk 87 08/14/2022 State Score (1-10), lower number is lower risk 8 08/14/2022 Data from: https://www.neighborhoodatlas.[facility]/. Last address used for calculation [...] 10/03/2024 8:00 AM EDT Office Visit Rheumatology [address] [place], [place] [address] [place] [address] [place], [place] [phone] Return in about 9 months (around 10/03/2024). documented as of this encounter Visit Diagnoses Not on filedocumented in this encounter Care Teams Fruit Thinner Relationship Specialty Start Date End Date Malcolm Cid MD PCP - General Family Medicine 01/07/15 documented as of this encounter
--- OUTSIDE RECORDS SUMMARY | 2024-07-30 19:42 | XMS_ITS | Encounter Summary ---
Author Organization [facility] Address [address] [place] [address] Care Team Providers Care Event Staff Member Name Role Phone Malcolm Cid MD Primary Care Provider [phone]- [phone] Source Comments In the event this information is protected by the Federal Confidentiality of Alcohol and Drug AbusePatient Records regulations: The Federal rules restrict any use of the information to criminally investigate or prosecute any alcohol or drug abuse patient.[facility] Encounter Details Date Type Department Care Team (Late st Contact Info) Description 10/12/2022 Patient Msg Rheumatology [address] [place], [place] [address]999[address] Provider, Ccf Appoinment Cancellation Social History Tobacco Use Types Packs/Day Years Used Date Smoking Tobacco: Never Smokeless Tobacco: Current Chew PHQ-2 Answer Date Recorded PHQ-2 score 4 08/13/2022 Area Deprivation Index Answer Date Adis rded National Score (1-100), lower number is lower ri sk 87 08/14/2022 State Score (1-10), lower number is lower risk 8 08/14/2022 Data from: https://www.neighborhoodatlas.medicine.[facility].edu/. Last address used for calculation [address] [facility] 08/14/2022 Sex and Gender Information Value Date [...] 10/03/2024 8:00 AM EDT Office Visit Rheumatology [address] [place] [address] [place] [address] [place] [address] Return in about 9 months (around 10/03/2024). documented as of this encounter Visit Diagnoses Not on filedocumented in this encounter Care Teams Event Staff Member Relationship Specialty Start Date End Date Malcolm Cid MD PCP - General Family Medicine 01/07/15 documented as of this encounter
--- OUTSIDE RECORDS SUMMARY | 2024-07-30 19:42 | XMS_ITS | Encounter Summary ---
Author Organization [facility] Address [facility] [place] [address] Care Team Providers Care Chinchilla Machine Operator Name Role Phone Malcolm Cid MD Primary Care Provider +1- [phone] Source Comments In the event this information is protected by the Federal Confidentiality of Alcohol and Drug AbusePatient Records regulations: The Federal rules restrict any use of the information to criminally investigate or prosecute any alcohol or drug abuse patient.[facility] Encounter Details Date Type Department Care Team (Late st Contact Info) Description 12/25/2020 Get Medical Advice Kidney Medicine [address] [place], [place] [address] Madonna Serrano, PATTERN ASSEMBLER.BULLDOZER OPERATOR [address] [place] [address] RE: Visit Follow Up Question [...] N ot on file 02/05/2020 Data from: https://www.neighborhoodatlas.[facility]/. Last address used for calculation Not on [...] 10/03/2024 8:00 AM EDT Office Visit Rheumatology [address] [place], [place] 314[address] [place] [address] [place], [place] 148[address] Return in about 9 months (around 10/03/2024). documented as of this encounter Visit Diagnoses Not on filedocumented in this encounter Care Teams Chinchilla Machine Operator Relationship Specialty Start Date End Date Malcolm Cid MD PCP - General Family Medicine 01/07/15 documented as of this encounter
--- OUTSIDE RECORDS SUMMARY | 2024-07-30 19:42 | XMS_ITS | Encounter Summary ---
Author Organization [facility] Address [address] [place] [address] Care Team Providers Care Mobile Health Vehicle Operator Name Role Phone Malcolm Cid MD Primary Care Provider [phone] Malcolm Cid MD Unavailable Wednesday, Alma AQUINON Unavailable [phone] Jayne Del Valle RN Unavailable [phone] Merry Paz PASSPORT APPLICATION EXAMINER Unavailable Unavailable Encounter Details Date Type Department Care Team (Late st Contact Info) Description 06/08/2023 Orders Only [facility] [address] [place] [address] A, Unknown Practice [address] [place] [address] Social History Tobacco Use Types Packs/Day Years [...] any clubs o r organizations such as shinto groups, unions, fraternal or athletic groups, or [...] care, and heating? Not very hard 09/14/2022 [facility] - Occupational [...] on filedocumented in this encounter Care Teams Mobile Health Vehicle Operator Relationship Specialty Start Date End Date Malcolm Cid MD 112 [facility] 110 [place] [address] PCP - General Family Medicine 07/29/22 Malcolm Cid MD [address] [place] [facility] 110 [place] [address] PCP - [facility] [address] [facility] 05/30/22Wednesday, BREE Marquez [address] [place], [place] [address] Licensed Practical Nurse Family Medicine 06/04/23 Jayne Del Valle, RN Licensed Practical Nurse Family Medicine 04/07/2404/30 Merry Paz LPN 05/19/24 documented as of this encounter
--- OUTSIDE RECORDS SUMMARY | 2024-07-30 19:42 | XMS_ITS | Encounter Summary ---
Author Organization [facility] Address [address] [place] [address] Care Team Providers Care Hander In Name Role Phone Malcolm Cid MD Primary Care Provider [phone] Malcolm Cid MD Unavailable Wednesday, Alma AQUINON Unavailable [phone] Jayne Del Valle RN Unavailable Merry Paz SECURITY ROVER Unavailable Unavailable Encounter Details Date Type Department Care Team (Late st Contact Info) Description 02/15/2023 Abstract [facility] [address] [facility] 110 [place] [address] Malcolm Cid MD 112 [facility] 110 [place], [place] [address] Social History Tobacco Use Types Packs/Day Years [...] and heating? Not very hard 09/14/2022 [facility] Occupat ional [facility] - [...] on filedocumented in this encounter Care Teams Hander In Relationship Specialty Start Date End Date Malcolm Cid MD [address] [place] [address] PCP - General Family Medicine 07/29/22 Malcolm Cid MD [address] [place] [address] PCP - [facility] 05/30/22Wednesday, BREE Marquez [address] [place] [address] Licensed Practical Nurse Family Medicine 06/04/23 Jayne Del Valle, RN Licensed Practical Nurse Family Medicine 04/07/2404/30 Merry Paz LPN 05/19/24 documented as of this encounter
--- OUTSIDE RECORDS SUMMARY | 2024-07-30 19:42 | XMS_ITS | Encounter Summary ---
Author Organization [facility] Address [address] [place] [address] Care Team Providers Care Huc Name Role Phone Malcolm Cid MD Primary Care Provider [phone] Malcolm Cid MD Unavailable Wednesday, Alma AQUINON Unavailable [phone] Jayne Del Valle RN Unavailable [phone] Merry Paz LPN Unavailable Unavailable Encounter Details Date Type Department Care Team (Late st Contact Info) Description 05/10/2023 Orders Only [facility] [address] [place] [address] A, Unknown Practice [address] [place] [address] Social History Tobacco Use Types Packs/Day Years [...] How often do you attend chur or jew services? More than 4 times per year [...] on filedocumented in this encounter Care Teams Huc Relationship Specialty Start Date End Date Malcolm Cid MD [address] [place] [facility] 110 [place] [address] PCP - General Family Medicine 07/29/22 Malcolm Cid MD [address] [facility] 110 [place] [address] PCP - [facility] 05/30/22Wednesday, BREE Marquez [address] [place], [place] [address] Licensed Practical Nurse Family Medicine 06/04/23 Jayne Del Valle, DELMIS Licensed Practical Nurse Family Medicine 04/07/2404/30 Merry Paz LPN 05/19/24 documented as of this encounter
--- OUTSIDE RECORDS SUMMARY | 2024-07-30 19:42 | XMS_ITS | Encounter Summary ---
Author Organization [facility] Address [address] [place] [address] Care Team Providers Care Boilermaker Welder Name Role Phone Malcolm Cid MD Primary Care Provider [phone] Malcolm Cid MD Unavailable Wednesday, Alma AQUINON Unavailable Jayne Del Valle RN Unavailable Merry Paz MANUAL LATHE MACHINIST Unavailable Unavailable Reason for Visit * Reason Comments Med Refill Encounter Details Date Type Department Care Team (Late st Contact Info) Description 12/03/2022 Refill [facility] [address] [facility] 110 [place] [address] Marina Proctor, PA [address] [facility] 110 [place] [address] Rheumatoid arthritis, unspecified (CMS/HCC) Social History Tobacco [...] How often do you attend chur or alevism services? More than 4 times per year [...] and heating? Not very hard 09/14/2022 [facility] Occupat ional Health - [...] unspecified documented in this encounter Care Teams Boilermaker Welder Relationship Specialty Start Date End Date Malcolm Cid MD [address] [facility] 110 [place] [address] PCP - General Family Medicine 07/29/22 Malcolm Cid MD [address] [place] [address] PCP - [facility] 05/30/22Wednesday, BREE Marquez [address] [place] [address] Licensed Practical Nurse Family Medicine 06/04/23 Jayne Del Valle, RN Licensed Practical Nurse Family Medicine 04/07/2404/30 Merry Paz LPN 05/19/24 documented as of this encounter
--- OUTSIDE RECORDS SUMMARY | 2024-07-30 19:42 | XMS_ITS | Encounter Summary ---
Author Organization [facility] Address [facility] [place] [address] Care Team Providers Care Grass Farmer Name Role Phone Malcolm Cid MD Primary Care Provider [phone]- [phone] Source Comments In the event this information is protected by the Federal Confidentiality of Alcohol and Drug AbusePatient Records regulations: The Federal rules restrict any use of the information to criminally investigate or prosecute any alcohol or drug abuse patient.[facility] Encounter Details Date Type Department Care Team (Late st Contact Info) Description 12/23/2020 Patient Msg Kidney Medicine [address] [place], [place] [address] Madonna Serrano, MARBLEIZER.ESTIMATOR [address] [place] [address] RE: BP Social History Tobacco [...] ot on file 02/05/2020 Data from: https://www.neighborhoodatlas.[facility]/. Last address used for [...] 10/03/2024 8:00 AM EDT Office Visit Rheumatology [address] [place], [place] [address] [place] [address] [place], [place] [address] Return in about 9 months (around 10/03/2024). documented as of this encounter Visit Diagnoses Not on filedocumented in this encounter Care Teams Grass Farmer Relationship Specialty Start Date End Date Malcolm Cid MD PCP - General Family Medicine 01/07/15 documented as of this encounter
--- OUTSIDE RECORDS SUMMARY | 2024-07-30 19:42 | XMS_ITS | Encounter Summary ---
Author Organization [facility] Address [address] [place] [address] Care Team Providers Care Brushing Operator Name Role Phone Malcolm Cid MD Primary Care Provider [phone]- [phone] Source Comments In the event this information is protected by the Federal Confidentiality of Alcohol and Drug AbusePatient Records regulations: The Federal rules restrict any use of the information to criminally investigate or prosecute any alcohol or drug abuse patient.[facility] Encounter Details Date Type Department Care Team (Late st Contact Info) Description 09/16/2023 Patient [facility] [place] [address] Mariah Hutchins RPh At your next appointment, choose [facility] Social History Tobacco Use Types Packs/Day Years Used Date Smoking Tobacco: Never Smokeless Tobacco: Current Chew PHQ-2 Answer Date Recorded PHQ-2 score 4 08/13/2022 Area Deprivation Index Answer Date Adis rded National Score (1-100), lower number is lower ri sk 87 08/14/2022 State Score (1-10), lower number is lower risk 8 08/14/2022 Data from: https://www.neighborhoodatlas.medicine.[facility].edu/. Last address used for calculation [address] [facility] 08/14/2022 Sex and Gender Information Value Date [...] 10/03/2024 8:00 AM EDT Office Visit Rheumatology [address] [place] [address] [place] [address] [place] [address] Return in about 9 months (around 10/03/2024). documented as of this encounter Visit Diagnoses Not on filedocumented in this encounter Care Teams Brushing Operator Relationship Specialty Start Date End Date Malcolm Cid MD PCP - General Family Medicine 01/07/15 documented as of this encounter
--- OUTSIDE RECORDS SUMMARY | 2024-07-30 19:42 | XMS_ITS | Encounter Summary ---
Author Organization [facility] Address [address] [place] [address] Care Team Providers Care Ice Hockey Coach Name Role Phone Malcolm Cid MD Primary Care Provider [phone] Malcolm Cid MD Unavailable Wednesday, Alma AQUINON Unavailable Jayne Del Valle RN Unavailable [phone] Merry Paz DENTAL TECHNOLOGY ADVISOR Unavailable Unavailable Encounter Details Date Type Department Care Team (Late st Contact Info) Description 05/11/2023 Abstract [facility] [address] [facility] 110 [place] [address] Malcolm Cid MD 112 [facility] 110 [place], [place] [address] Social History Tobacco Use Types Packs/Day Years [...] any clubs o r organizations such as confucianism groups, unions, fraternal or athletic groups, or [...] on filedocumented in this encounter Care Teams Ice Hockey Coach Relationship Specialty Start Date End Date Malcolm Cid MD [address] [facility] 110 [place] [address] PCP - General Family Medicine 07/29/22 Malcolm Cid MD [address] [place] [address] PCP - [facility] 05/30/22Wednesday, BREE Marquez [address] [place] [address] Licensed Practical Nurse Family Medicine 06/04/23 Jayne Del Valle, RN Licensed Practical Nurse Family Medicine 04/07/2404/30 Merry Paz LPN 05/19/24 documented as of this encounter
--- OUTSIDE RECORDS SUMMARY | 2024-07-30 19:42 | XMS_ITS | Encounter Summary ---
Author Organization [facility] Address [address] [place] [address] Care Team Providers Care Industrial Automation Engineer Name Role Phone Malcolm Cid MD Primary Care Provider [phone] Malcolm Cid MD Unavailable Wednesday, Alma AQUINON Unavailable [phone] Jayne Del Valle RN Unavailable Merry Paz QUAD STAYER Unavailable Unavailable Encounter Details Date Type Department Care Team (Late st Contact Info) Description 12/16/2022 Abstract [facility] [address] [facility] 110 [place] [id number] Marina Proctor, PA 112 [facility] 110 [place], [place] [id number] Social History Tobacco Use Types Packs/Day Years [...] How often do you attend chur or advent services? More than 4 times per year 09/14/2022 Do you belong to any clubs o r organizations such as jewish groups, unions, fraternal or athletic groups, or [...] and heating? Not very hard 09/14/2022 [facility] Occupat ional Health - Occupational [...] in a chcf (including now)? No 09/14/2022 Sex and Gender [...] filedocumented in this encounter Care Teams Industrial Automation Engineer Relationship Specialty Start Date End Date Malcolm Cid MD [address] [facility] 110 [place] [address] PCP - General Family Medicine 07/29/22 Malcolm Cid MD [address] [facility] 110 [place] [address] PCP - [facility] 05/30/22Wednesday, BREE Marquez [address] [place] [address] Licensed Practical Nurse Family Medicine 06/04/23 Jayne Del Valle, DELMIS Licensed Practical Nurse Family Medicine 04/07/2404/30 Merry Paz LPN 05/19/24 documented as of this encounter
--- OUTSIDE RECORDS SUMMARY | 2024-07-30 19:42 | XMS_ITS | Encounter Summary ---
Author Organization [facility] Address [address] [place] [address] Care Team Providers Care Customer Liaison Name Role Phone Malcolm iCd MD Primary Care Provider [phone] Malcolm Cid MD Unavailable Wednesday, Alma AQUINON Unavailable [phone] Jayne Del Valle RN Unavailable [phone] Merry Paz INTERACTIVE MEDIA DESIGNER Unavailable Unavailable Encounter Details Date Type Department Care Team (Late st Contact Info) Description 02/15/2023 Abstract [facility] [address] [facility] 110 [place] [id number] Malcolm Cid MD 112 [facility] 110 [place], [place] [id number] Social History Tobacco Use Types Packs/Day Years [...] filedocumented in this encounter Care Teams Customer Liaison Relationship Specialty Start Date End Date Malcolm Cid MD [address] [place] [address] PCP - General Family Medicine 07/29/22 Malcolm Cid MD [address] [facility] [address] [place] [address] PCP - [facility] 05/30/22Wednesday, BREE Marquez [address] [place] [address] Licensed Practical Nurse Family Medicine 06/04/23 Jayne Del Valle, RN Licensed Practical Nurse Family Medicine 04/07/2404/30 Merry Paz LPN 05/19/24 documented as of this encounter
--- OUTSIDE RECORDS SUMMARY | 2024-07-30 19:42 | XMS_ITS | Encounter Summary ---
Author Organization [facility] Address [address] [place] [address] Care Team Providers Care Activity Manager Name Role Phone Malcolm Cid MD Primary Care Provider [phone] Source Comments In the event this information is protected by the Federal Confidentiality of Alcohol and Drug AbusePatient Records regulations: The Federal rules restrict any use of the information to criminally investigate or prosecute any alcohol or drug abuse patient.[facility] Encounter Details Date Type Department Care Team (Late st Contact Info) Description 06/18/2020 Patient Msg Kidney Medicine [address] [place], [place] [id number] Marito Velasquez MD [address] [place] [address] results Social History Tobacco Use Types Packs/Day Years Used Date Smoking Tobacco: Never Smokeless Tobacco: Current Chew PHQ-2 Answer Date Recorded PHQ-2 score 4 03/31/2020 Area Deprivation Index Answer Date Adis rded National Score (1-100), lower number is lower ri sk Not on file 02/05/2020 State Score (1-10), lower number is lower risk N ot on file 02/05/2020 Data from: https://www.neighborhoodatlas.medicine.[facility]/. Last address used for calculation Not [...] Assessment Author No 04/26/2017 6:15 PM Oralia Hutrado RN * Because of a physical, mental, [...] 10/03/2024 8:00 AM EDT Office Visit Rheumatology [address] [place], [place] [phone] [place] [address] [place], [place] [id number] Return in about 9 months (around 10/03/2024). documented as of this encounter Visit Diagnoses Not on filedocumented in this encounter Care Teams Activity Manager Relationship Specialty Start Date End Date Malcolm Cid MD PCP - General Family Medicine 01/07/15 documented as of this encounter
--- OUTSIDE RECORDS SUMMARY | 2024-07-30 19:42 | XMS_ITS | Encounter Summary ---
Author Organization [facility] Address [address] [place] [address] Care Team Providers Care Deer Farm Worker Name Role Phone Malcolm Cid MD Primary Care Provider [phone] Source Comments In the event this information is protected by the Federal Confidentiality of Alcohol and Drug AbusePatient Records regulations: The Federal rules restrict any use of the information to criminally investigate or prosecute any alcohol or drug abuse patient.[facility] Encounter Details Date Type Department Care Team (Late st Contact Info) Description 02/04/2024 Get Medical Advice Rheumatology [address] [place], [place] [id number] [place] [address] [place] [address] Flare up Social History Tobacco Use Types Packs/Day Years Used Date Smoking Tobacco: Never Smokeless Tobacco: Current Chew PHQ-2 Answer Date Recorded PHQ-2 score 1 01/14/2024 Area Deprivation Index Answer Date Adis rded National Score (1-100), lower number is lower ri sk 87 08/14/2022 State Score (1-10), lower number is lower risk 8 08/14/2022 Data from: https://www.neighborhoodatlas.medicine.[facility]/. Last address used for calculation [...] 10/03/2024 8:00 AM EDT Office Visit Rheumatology [address] [place] [address] [place] [address] [place] [address] Return in about 9 months (around 10/03/2024). documented as of this encounter Visit Diagnoses Not on filedocumented in this encounter Care Teams Deer Farm Worker Relationship Specialty Start Date End Date Malcolm Cid MD PCP - General Family Medicine 01/07/15 documented as of this encounter
--- OUTSIDE RECORDS SUMMARY | 2024-07-30 19:42 | XMS_ITS | Encounter Summary ---
Author Organization [facility] Address [address] [place] [address] Care Team Providers Care White Washer Piler Name Role Phone Malcolm Cid MD Primary Care Provider [phone] Malcolm Cid MD Unavailable Wednesday, Alma AQUINON Unavailable [phone] Jayne Del Valle RN Unavailable Merry Paz GRISTMILLER Unavailable Unavailable Encounter Details Date Type Department Care Team (Late st Contact Info) Description 02/17/2023 Abstract [facility] [address] [facility] 110 [place] [id number] Malcolm Cid MD 112 [facility] 110 [place], [place] [address] Social History Tobacco Use Types Packs/Day Years [...] care, and heating? Not very hard 09/14/2022 [facility] of Occupat ional Health - [...] on filedocumented in this encounter Care Teams White Washer Piler Relationship Specialty Start Date End Date Malcolm Cid MD [address] [place] [address] PCP - General Family Medicine 07/29/22 Malcolm Cid MD [address] [place] [address] PCP - [facility] 05/30/22Wednesday, BREE Marquez [address] [place] [address] Licensed Practical Nurse Family Medicine 06/04/23 Jayne Del Valle, RN Licensed Practical Nurse Family Medicine 04/07/2404/30 Merry Paz LPN 05/19/24 documented as of this encounter
--- OUTSIDE RECORDS SUMMARY | 2024-07-30 19:42 | XMS_ITS | Encounter Summary ---
Author Organization [facility] Address [address] [place] [address] Care Team Providers Care Superintendent Schools Name Role Phone Malcolm Cid MD Primary Care Provider [phone] Source Comments In the event this information is protected by the Federal Confidentiality of Alcohol and Drug AbusePatient Records regulations: The Federal rules restrict any use of the information to criminally investigate or prosecute any alcohol or drug abuse patient.[facility] Encounter Details Date Type Department Care Team (Late st Contact Info) Description 01/01/2022 Patient Msg Rheumatology [address] [place], [place] [phone] [place] [address] [place] [address] Previsit lab reminder Social History Tobacco Use Types Packs/Day Years Used Date Smoking Tobacco: Never Smokeless Tobacco: Current Chew PHQ-2 Answer Date Recorded PHQ-2 score 3 08/19/2020 Area Deprivation Index Answer Date Adis rded National Score (1-100), lower number is lower ri sk Not on file 02/05/2020 State Score (1-10), lower number is lower risk N ot on file 02/05/2020 Data from: https://www.neighborhoodatlas.[facility]/. Last address used for calculation Not [...] 10/03/2024 8:00 AM EDT Office Visit Rheumatology [address] [place], [place] [address] [place] [address] [place], [place] [id number] Return in about 9 months (around 10/03/2024). documented as of this encounter Visit Diagnoses Not on filedocumented in this encounter Care Teams Superintendent Schools Relationship Specialty Start Date End Date Malcolm Cid MD PCP - General Family Medicine 01/07/15 documented as of this encounter
--- OUTSIDE RECORDS SUMMARY | 2024-07-30 19:42 | XMS_ITS | Encounter Summary ---
Author Organization [facility] Address [address] [place] [address] Care Team Providers Care Advertising Account Representative Name Role Phone Malcolm Cid MD Primary Care Provider [phone] Source Comments In the event this information is protected by the Federal Confidentiality of Alcohol and Drug AbusePatient Records regulations: The Federal rules restrict any use of the information to criminally investigate or prosecute any alcohol or drug abuse patient.[facility] Encounter Details Date Type Department Care Team (Late st Contact Info) Description 09/20/2023 Patient [facility] [place] [address] Nevin Balbuena RPh At your next appointment, choose [facility] Social History Tobacco Use Types Packs/Day Years Used Date Smoking Tobacco: Never Smokeless Tobacco: Current Chew PHQ-2 Answer Date Recorded PHQ-2 score 4 08/13/2022 Area Deprivation Index Answer Date Adis rded National Score (1-100), lower number is lower ri sk 87 08/14/2022 State Score (1-10), lower number is lower risk 8 08/14/2022 Data from: https://www.neighborhoodatlas.medicine.[facility].edu/. Last address used for calculation [address] [facility] 08/14/2022 Sex and Gender Information [...] 10/03/2024 8:00 AM EDT Office Visit Rheumatology [address] [place] [address] [place] [address] [place] [address] Return in about 9 months (around 10/03/2024). documented as of this encounter Visit Diagnoses Not on filedocumented in this encounter Care Teams Advertising Account Representative Relationship Specialty Start Date End Date Malcolm Cid MD PCP - General Family Medicine 01/07/15 documented as of this encounter
--- OUTSIDE RECORDS SUMMARY | 2024-07-30 19:42 | XMS_ITS | Encounter Summary ---
Author Organization [facility] Address [address] [place] [address] Care Team Providers Care Pre School Teacher Name Role Phone Malcolm Cid MD Primary Care Provider [phone] Malcolm Cid MD Unavailable Wednesday, Alma AQUINON Unavailable [phone] Jayne Del Valle RN Unavailable [phone] Merry Paz COCOA BEAN ROASTER Unavailable Unavailable Encounter Details Date Type Department Care Team (Late st Contact Info) Description 09/29/2022 Orders Only [facility] [address] [place] [address] A, Unknown Practice [address] [place] [address] Social History Tobacco Use Types Packs/Day Years [...] often do you attend chur ch or hindu services? More than 4 times per year 09/14/2022 Do you belong to any clubs o r organizations such as pentecostalism groups, unions, fraternal or athletic groups, or [...] hard 09/14/2022 [facility] of Occupat ionma Health - Occupational Stress Questionnaire Answer Date [...] filedocumented in this encounter Care Teams Pre School Teacher Relationship Specialty Start Date End Date Malcolm Cid MD [address] [place] [address] PCP - General Family Medicine 07/29/22 Malcolm Cid MD [address] [place] [address] PCP - [facility] 05/30/22Wednesday, BREE Marquez [address] [place] [address] Licensed Practical Nurse Family Medicine 06/04/23 Jayne Del Valle, RN Licensed Practical Nurse Family Medicine 04/07/2404/30 Merry Paz LPN 05/19/24 documented as of this encounter
--- OUTSIDE RECORDS SUMMARY | 2024-07-30 19:42 | XMS_ITS | Encounter Summary ---
Author Organization [facility] Address [address] [place] [address] Care Team Providers Care Canteen Operator Name Role Phone Malcolm Cid MD Primary Care Provider [phone] Malcolm iCd MD Unavailable Wednesday, Alma AQUINON Unavailable [phone] Jayne Del Valle RN Unavailable [phone] Merry Paz GLASS BULB SILVERER Unavailable Unavailable Encounter Details Date Type Department Care Team (Late st Contact Info) Description 12/03/2022 Orders Only [facility] [address] [place] [address] [place] [address] A, Unknown Practice [address] [place] [address] Social History Tobacco Use Types Packs/Day Years [...] often do you attend chur ch or evangelical services? More than 4 times per year 09/14/2022 Do you belong to any clubs o r organizations such as druze groups, unions, fraternal or athletic groups, or [...] care, and heating? Not very hard 09/14/2022 [facility] of Occupat ionga Health - Occupational Stress Questionnaire Answer Date [...] on filedocumented in this encounter Care Teams Canteen Operator Relationship Specialty Start Date End Date Malcolm Cid MD [address] [facility] 110 [place] [address] PCP - General Family Medicine 07/29/22 Malcolm Cid MD [address] [facility] 110 [place] [address] PCP - [facility] 05/30/22Wednesday, BREE Marquez 112 [place] [address] Licensed Practical Nurse Family Medicine 06/04/23 Jayne Del Valle, DELMIS Licensed Practical Nurse Family Medicine 04/07/2404/30 Merry Paz LPN 05/19/24 documented as of this encounter
--- OUTSIDE RECORDS SUMMARY | 2024-07-30 19:42 | XMS_ITS | Encounter Summary ---
Author Organization [facility] Address [address] [place] [address] Care Team Providers Care Cut Lace Machine Operator Name Role Phone Malcolm Cid MD Primary Care Provider [phone] Malcolm Cid MD Unavailable Wednesday, Alma AQUINON Unavailable [phone] Jayne Del Valle RN Unavailable [phone] Merry Paz LAW FIRM PARTNER Unavailable Unavailable Reason for Visit * Reason Onset Date Comments Med Refill 04/13/2023 Encounter Details Date Type Department Care Team (Late st Contact Info) Description 04/13/2023 Refill [facility] [address] [facility] 110 [place] [address] Marina Proctor, PA [address] [place] [address] 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 [...] How often do you attend chur or voodoo services? More than 4 times per year [...] and heating? Not very hard 09/14/2022 [facility] [place] of Occupat ional Health - Occupational Stress [...] with positive rheumatoid factor ([facility]) Anxiety Anxiety state, unspecified documented in this encounter Care Teams Cut Lace Machine Operator Relationship Specialty Start Date End Date Malcolm Cid MD [address] [place] [address] PCP - General Family Medicine 07/29/22 Malcolm Cid MD [address] [place] [address] PCP - [facility] 05/30/22Wednesday, BREE Marquez [address] [place] [address] Licensed Practical Nurse Family Medicine 06/04/23 Jayne Del Valle, DELMIS Licensed Practical Nurse Family Medicine 04/07/2404/30 Merry Paz LPN 05/19/24 documented as of this encounter
--- OUTSIDE RECORDS SUMMARY | 2024-07-30 19:42 | XMS_ITS | Encounter Summary ---
Author Organization [facility] Address [address] [place] [address] Care Team Providers Care Cardiac Specialist Name Role Phone Malcolm Cid MD Primary Care Provider [phone] Source Comments In the event this information is protected by the Federal Confidentiality of Alcohol and Drug AbusePatient Records regulations: The Federal rules restrict any use of the information to criminally investigate or prosecute any alcohol or drug abuse patient.[facility] Encounter Details Date Type Department Care Team (Late st Contact Info) Description 09/15/2021 Patient Msg Rheumatology [address] [place], [place] [phone] [place] [address] [place] [address] Lab results/orders Social History Tobacco Use Types Packs/Day Years Used Date Smoking Tobacco: Never Smokeless Tobacco: Current Chew PHQ-2 Answer Date Recorded PHQ-2 score 3 08/19/2020 Area Deprivation Index Answer Date Adis rded National Score (1-100), lower number is lower ri sk Not on file 02/05/2020 State Score (1-10), lower number is lower risk N ot on file 02/05/2020 Data from: https://www.neighborhoodatlas.[facility]/. Last address used for calculation Not on [...] 10/03/2024 8:00 AM EDT Office Visit Rheumatology [address] [place], [place] [address] [place] [address] [place], [place] [phone] Return in about 9 months (around 10/03/2024). documented as of this encounter Visit Diagnoses Not on filedocumented in this encounter Care Teams Cardiac Specialist Relationship Specialty Start Date End Date Malcolm Cid MD PCP - General Family Medicine 01/07/15 documented as of this encounter
--- OUTSIDE RECORDS SUMMARY | 2024-07-30 19:42 | XMS_ITS | Encounter Summary ---
Author Organization [facility] Address [address] [place] [address] Care Team Providers Care Body Painter Name Role Phone Malcolm Cid MD Primary Care Provider [phone] Malcolm Cid MD Unavailable Wednesday, Alma AQUINON Unavailable [phone] Jayne Del Valle RN Unavailable Merry Paz TERRITORY BUSINESS MANAGER Unavailable Unavailable Encounter Details Date Type Department Care Team (Late st Contact Info) Description 01/20/2023 Abstract [facility] [address] [facility] 110 [place] [id number] Malcolm Cid MD 112 [facility] 110 [place], [place] [address] Social History Tobacco Use Types Packs/Day Years [...] place to sleep or slept in a fdc (including now)? No 09/14/2022 Sex and Gender [...] on filedocumented in this encounter Care Teams Body Painter Relationship Specialty Start Date End Date Malcolm Cid MD [address] [place] [facility] 110 [place] [address] PCP - General Family Medicine 07/29/22 Malcolm Cid MD [address] [facility] 110 [place] [address] PCP - [facility] 05/30/22Wednesday, BREE Marquez 112 [facility] [address] [place] [address] Licensed Practical Nurse Family Medicine 06/04/23 Jayne Del Valle, DELMIS Licensed Practical Nurse Family Medicine 04/07/2404/30 Merry Paz LPN 05/19/24 documented as of this encounter
--- OUTSIDE RECORDS SUMMARY | 2024-07-30 19:42 | XMS_ITS | Encounter Summary ---
Author Organization [facility] Address [address] [place] [address] Care Team Providers Care Cancer Spec Name Role Phone Malcolm Cid MD Primary Care Provider [phone] Source Comments In the event this information is protected by the Federal Confidentiality of Alcohol and Drug AbusePatient Records regulations: The Federal rules restrict any use of the information to criminally investigate or prosecute any alcohol or drug abuse patient.[facility] Encounter Details Date Type Department Care Team (Late st Contact Info) Description 09/08/2023 Patient Msg Pediatrics [place] [address] [place] [address] Provider, [facility] Rheumatology Appointment Cancellation Social History Tobacco Use Types Packs/Day Years Used Date Smoking Tobacco: Never Smokeless Tobacco: Current Chew PHQ-2 Answer Date Recorded PHQ-2 score 4 08/13/2022 Area Deprivation Index Answer Date Adis rded National Score (1-100), lower number is lower ri sk 87 08/14/2022 State Score (1-10), lower number is lower risk 8 08/14/2022 Data from: https://www.neighborhoodatlas.medicine.[facility].edu/. Last address used for calculation [address] [...] 10/03/2024 8:00 AM EDT Office Visit Rheumatology [address] [place] [address] [place] [address] [place] [address] Return in about 9 months (around 10/03/2024). documented as of this encounter Visit Diagnoses Not on filedocumented in this encounter Care Teams Cancer Spec Relationship Specialty Start Date End Date Malcolm Cid MD PCP - General Family Medicine 01/07/15 documented as of this encounter
--- OUTSIDE RECORDS SUMMARY | 2024-07-30 19:42 | XMS_ITS | Encounter Summary ---
Author Organization [facility] Address [address] [place] [address] Care Team Providers Care Slide Machine Tender Name Role Phone Malcolm Cid MD Primary Care Provider [phone] Malcolm Cid MD Unavailable Wednesday, Alma AQUINON Unavailable Jayne Del Valle RN Unavailable Merry Paz GRAVITY MANAGER Unavailable Unavailable Encounter Details Date Type Department Care Team (Late st Contact Info) Description 03/25/2023 Abstract [facility] [address] [facility] 110 [place] [phone] Malcolm Cid MD 112 [facility] 110 [place], [place] [address] Social History Tobacco Use Types Packs/Day Years [...] How often do you attend chur or worship services? More than 4 times per year [...] on filedocumented in this encounter Care Teams Slide Machine Tender Relationship Specialty Start Date End Date Malcolm Cid MD [address] [place] [address] PCP - General Family Medicine 07/29/22 Malcolm Cid MD [address] [place] [address] PCP - [facility] 05/30/22Wednesday, BREE Marquez [address] [place] [address] Licensed Practical Nurse Family Medicine 06/04/23 Jayne Del Valle, RN Licensed Practical Nurse Family Medicine 04/07/2404/30 Merry Paz LPN 05/19/24 documented as of this encounter
--- OUTSIDE RECORDS SUMMARY | 2024-07-30 19:42 | XMS_ITS | Encounter Summary ---
Author Organization [facility] Address [address] [place] [address] Care Team Providers Care Room Clerk Name Role Phone Malcolm Cid MD Primary Care Provider [phone] Source Comments In the event this information is protected by the Federal Confidentiality of Alcohol and Drug AbusePatient Records regulations: The Federal rules restrict any use of the information to criminally investigate or prosecute any alcohol or drug abuse patient.[facility] Encounter Details Date Type Department Care Team (Late st Contact Info) Description 01/04/2024 Patient Msg Rheumatology [address] [place], [place] [id number] [place] [address] [place] [address] Previsit lab reminder Social History Tobacco Use Types Packs/Day Years Used Date Smoking Tobacco: Never Smokeless Tobacco: Current Chew PHQ-2 Answer Date Recorded PHQ-2 score 4 08/13/2022 Area Deprivation Index Answer Date Adis rded National Score (1-100), lower number is lower ri sk 87 08/14/2022 State Score (1-10), lower number is lower risk 8 08/14/2022 Data from: https://www.neighborhoodatlas.[facility]/. Last address used for calculation Thong SALDAÑA [...] 04/26/2017 6:15 PM Oraila Hurtado RN * Are you blind or [...] 10/03/2024 8:00 AM EDT Office Visit Rheumatology [address] [place], [place] [id number] [place] [address] [place], [place] [id number] Return in about 9 months (around 10/03/2024). documented as of this encounter Visit Diagnoses Not on filedocumented in this encounter Care Teams Room Clerk Relationship Specialty Start Date End Date Malcolm Cid MD PCP - General Family Medicine 01/07/15 documented as of this encounter
--- OUTSIDE RECORDS SUMMARY | 2024-07-30 19:42 | XMS_ITS | Encounter Summary ---
Author Organization [facility] Address [address] [place] [address] Care Team Providers Care Green Chain Off Bearer Name Role Phone Malcolm Cid MD Primary Care Provider [phone] Malcolm Cid MD Unavailable Wednesday, Alma AQUINON Unavailable Jayne Del Valle RN Unavailable Merry Paz HOUSING INSPECTORS Unavailable Unavailable Encounter Details Date Type Department Care Team (Late st Contact Info) Description 04/01/2023 Abstract [facility] [address] [facility] 110 [place] [id number] Malcolm Cid MD 112 [facility] 110 [place], [place] [id number] Social History Tobacco Use Types Packs/Day Years [...] How often do you attend chur or restorationist services? More than 4 times per year [...] care, and heating? Not very hard 09/14/2022 [facility] of Occupat ional Health - [...] on filedocumented in this encounter Care Teams Green Chain Off Bearer Relationship Specialty Start Date End Date Malcolm Cid MD [address] [place] [address] PCP - General Family Medicine 07/29/22 Malcolm Cid MD [address] [place] [address] PCP - [facility] 05/30/22Wednesday, BREE Marquez [address] [place] [address] Licensed Practical Nurse Family Medicine 06/04/23 Jayne Del Valle, RN Licensed Practical Nurse Family Medicine 04/07/2404/30 Merry Paz LPN 05/19/24 documented as of this encounter
--- OUTSIDE RECORDS SUMMARY | 2024-07-30 19:43 | XMS_ITS | Encounter Summary ---
Author Organization [facility] Address [address] [place] [address] Care Team Providers Care Rig Site Engineer Name Role Phone Malcolm Cid MD Primary Care Provider [phone] Malcolm Cid MD Unavailable Merry Paz LPN Unavailable Unavailable Reason for Visit * Reason Onset Date Comments Med Refill 06/26/2024 Encounter Details Date Type Department Care Team (Late st Contact Info) Description 06/26/2024 Refill [facility] [address] [facility] [facility] 110 [place] [address] Marina Proctor, PA 112 [facility] 110 [place], [place] [id number] 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 [...] How often do you attend chur or amish services? More than 4 times per year [...] Recorded Patient Health Questionnaire-2 Score 0 05/18/2024 [facility] [place] of Occupat ional Health - Occupational Stress [...] in a jail (including now)? No 09/14/2022 Housing Stability Vital [...] were you homeless or living in a jail (including now)? No 10/10/2023 Sex and Gender [...] pain, I would recommend he see a Salesperson Flowers to discuss treatment options for the Rheumatoid [...] sites with positive rheumatoid factor ([facility]) documented in this encounter Care Teams Rig Site Engineer Relationship Specialty Start Date End Date Malcolm Cid MD 112 [facility] 110 [place] [address] PCP - General Family Medicine 07/29/22 Malcolm Cid MD 112 [facility] 110 [place] [address] PCP - [facility] 05/30/22 Merry Paz LPN 05/19/24 documented as of this encounter
--- OUTSIDE RECORDS SUMMARY | 2024-07-30 19:43 | XMS_ITS | Encounter Summary ---
Author Organization [facility] Address [address] [place] [address] Care Team Providers Care Water Commissioner Name Role Phone Malcolm Cid MD Primary Care Provider [phone] Malcolm Cid MD Unavailable Merry Paz LPN Unavailable Unavailable Reason for Visit * Reason Onset Date Comments Med Refill 07/26/2024 Encounter Details Date Type Department Care Team (Late st Contact Info) Description 07/26/2024 Refill [facility] 112 [facility] [facility] 110 [place] [address] Marina Proctor, [place] 112 [facility] 110 [place], [place] [phone] 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 [...] How often do you attend chur or jainism services? More than 4 times per year 10/10/2023 Do you belong to any clubs o r organizations such as anabaptist groups, unions, fraternal or athletic groups, or [...] Recorded Patient Health Questionnaire-2 Score 0 05/18/2024 [facility] [place] of Occupat ional Health - Occupational Stress [...] any time in the past 12 m [facility], were you homeless or living [...] involving multiple sites with positive rheumatoid factor ([facility]) documented in this encounter Care Teams Water Commissioner Relationship Specialty Start Date End Date Malcolm Cid MD [address] [address] PCP - General Family Medicine 07/29/22 Malcolm Cid MD [address] [address] PCP - [facility] 05/30/22 Merry Paz LPN 05/19/24 documented as of this encounter
--- OUTSIDE RECORDS SUMMARY | 2024-07-30 19:43 | XMS_ITS | Encounter Summary ---
Author Organization [facility] Address [address] [place] [address] Care Team Providers Care Address Change Clerk Name Role Phone Malcolm Cid MD Primary Care Provider [phone] Malcolm Cid MD Unavailable Wednesday, Alma AQUINON Unavailable [phone] Jayne Del Valle RN Unavailable [phone] Merry Paz BOXING INSPECTOR Unavailable Unavailable Encounter Details Date Type Department Care Team (Late st Contact Info) Description 01/11/2023 Abstract [facility] [address] [facility] 110 [place] [phone] Malcolm Cid MD 112 [facility] 110 [place], [place] [id number] Social History Tobacco Use Types Packs/Day Years [...] any clubs o r organizations such as taoist groups, unions, fraternal or athletic groups, or [...] and heating? Not very hard 09/14/2022 [facility] of Occupat ional Health - Occupational [...] on filedocumented in this encounter Care Teams Address Change Clerk Relationship Specialty Start Date End Date Malcolm Cid MD 112 [facility] 110 [place] [address] PCP - General Family Medicine 07/29/22 Malcolm Cid MD [address] [facility] 110 [place] [address] PCP - [facility] 05/30/22Wednesday, BREE Marquez 112 [facility] [address] [place] [address] Licensed Practical Nurse Family Medicine 06/04/23 Jayne Del Valle, DELMIS Licensed Practical Nurse Family Medicine 04/07/2404/30 Merry Paz LPN 05/19/24 documented as of this encounter
--- OUTSIDE RECORDS SUMMARY | 2024-07-30 19:43 | XMS_ITS | Encounter Summary ---
Author Organization [facility] Address [address] [place] [address] Care Team Providers Care Spd Manager Name Role Phone Malcolm Cid MD Primary Care Provider [phone] Malcolm Cid MD Unavailable Wednesday, Alma AQUINON Unavailable [phone] Jayne Del Valle RN Unavailable [phone] Merry Paz LPN Unavailable Unavailable Encounter [...] care, and heating? Not very hard 10/10/2023 [facility] of Occupat ional Health [...] in a halfway (including now)? No 09/14/2022 Housing Stability Vital Sign Answer Sohail e Recorded In the last 12 months, was t here a time when you were not able to pay the mortgage or rent on time? Yes 10/10/2023 In the past 12 months, how m any times have you moved where you were living? 0 10/10/2023 At any time in the past 12 m [facility], were you homeless or living in a halfway (including now)? No 10/10/2023 Sex and Gender [...] encounter Results * XR KNEE 4V AP/PA/LAT/MERCH RAMRIO (01/04/2024 9:48 AM EST) Anatomical Region Laterality [...] similar to 05/04/2017. Mild right knee osteoarthritis. Automotive Customer Experience Advisor: ADELA Transcribe Date/Time: Jan 04 2024 12:48P Dictated by : CHELSEA REEVES MD This examination was interpreted and the report reviewed and electronically signed by: CHELSEA REEVES MD on Jan 04 2024 1:21PM EST [id number]^AGFA_IDC^SI^ACN Procedure Note Radiology, Radiologist, - 01/04/2024 * [...] similar to 05/04/2017. Mild right knee osteoarthritis. Automotive Customer Experience Advisor: PSCB Transcribe Date/Time: Jan 04 2024 12:48P Dictated by : CHELSEA REEVES MD This examination was interpreted and the report reviewed and electronically signed by: CHELSEA REEVES MD on Jan 04 2024 1:21PM EST [id number]^AGFA_IDC^SI^ACN us Generic External Data Provider [facility] Final Result documented in this encounter Visit Diagnoses Not on filedocumented in this encounter Care Teams Spd Manager Relationship Specialty Start Date End Date Malcolm Cid MD [address] [facility] 110 [place] [address] PCP - General Family Medicine 07/29/22 Malcolm Cid MD [address] [facility] 110 [place] [address] PCP - [facility] 05/30/22WednesdayAlma LPN [address] [place] [address] Licensed Practical Nurse Family Medicine 06/04/23 Jayne Del Valle, RN Licensed Practical Nurse Family Medicine 04/07/2404/30 Merry Paz LPN 05/19/24 documented as of this encounter
--- OUTSIDE RECORDS SUMMARY | 2024-07-30 19:43 | XMS_ITS | Encounter Summary ---
Author Organization [facility] Address [address] [place] [address] Care Team Providers Care Client Development Manager Name Role Phone Malcolm Cid MD Primary Care Provider [phone] Malcolm Cid MD Unavailable Jayne Del Valle RN Unavailable [phone] Merry Paz LPN Unavailable Unavailable Encounter Details Date Type Department Care Team (Late st Contact Info) Description 05/18/2024 Abstract [facility] 112 [facility] 110 [place] [address] Malcolm Cid MD 112 [facility] 110 [place] [address] Social History Tobacco Use Types [...] any clubs o r organizations such as yazidism groups, unions, fraternal or athletic groups, or [...] Recorded Patient Health Questionnaire-2 Score 0 05/18/2024 [facility] [place] of Occupat ional Health - Occupational Stress [...] time in the past 12 m [facility], were you homeless or living [...] filedocumented in this encounter Care Teams Client Development Manager Relationship Specialty Start Date End Date Malcolm Cid MD [address] [place] [facility] 110 [place] [address] PCP - General Family Medicine 07/29/22 Malcolm Cid MD [address] [place] [facility] 110 [place] [address] PCP - [facility] 05/30/22 Jayne Del Valle, DELMIS Licensed Practical Nurse Family Medicine 04/07/2404/30 Merry Paz LPN 05/19/24 documented as of this encounter
--- OUTSIDE RECORDS SUMMARY | 2024-07-30 19:43 | XMS_ITS | Encounter Summary ---
Author Organization [facility] Address [address] [place] [address] Care Team Providers Care Vending Machine Filler Name Role Phone Malcolm Cid MD Primary Care Provider [phone] Malcolm Cid MD Unavailable Merry Paz LPN Unavailable Unavailable Reason for Visit * Reason Onset Date Comments Med Refill 07/20/2024 Encounter Details Date Type Department Care Team (Late st Contact Info) Description 07/20/2024 Refill [facility] 112 [facility] 110 [place] [address] Marina Proctor, PA 112 [facility] 110 [place], [place] [phone] 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 [...] any clubs o r organizations such as voodoo groups, unions, fraternal or athletic groups, or [...] Recorded Patient Health Questionnaire-2 Score 0 05/18/2024 [facility] [place] of Occupat ional Health - Occupational Stress [...] in a prison (including now)? No 09/14/2022 Housing Stability Vital [...] time in the past 12 m [facility], were you homeless or living in a prison (including now)? No 10/10/2023 Sex and Gender [...] Patient was just weaned off of the [place]. He needs to use the Tramadol as [...] involving multiple sites with positive rheumatoid factor ([facility]) documented in this encounter Care Teams Vending Machine Filler Relationship Specialty Start Date End Date Malcolm Cid MD 112 [facility] 110 [place] [address] PCP - General Family Medicine 07/29/22 Malcolm Cid MD 112 [facility] 110 [place] [address] PCP - [facility] 05/30/22 Merry Paz LPN 05/19/24 documented as of this encounter
--- OUTSIDE RECORDS SUMMARY | 2024-07-30 19:43 | XMS_ITS | Encounter Summary ---
Author Organization [facility] Address [address] [place] [address] Care Team Providers Care Chiseler Head Name Role Phone Malcolm Cid MD Primary Care Provider [phone] Malcolm Cid MD Unavailable Wednesday, Alma AQUINON Unavailable [phone] Jayne Del Valle RN Unavailable [phone] Merry Paz LPN Unavailable Unavailable Encounter [...] How often do you attend chur or roman catholic services? More than 4 times per year 10/10/2023 Do you belong to any clubs o r organizations such as christianity groups, unions, fraternal or athletic groups, or [...] care, and heating? Not very hard 10/10/2023 [facility] of [...] time in the past 12 m [facility], were you homeless or living in [...] progressed from 05/04/2017 Mild right foot osteoarthritis. Casino Change Attendant: ADELA Transcribe Date/Time: Jan 04 2024 10:13A Dictated by : UMA ROGERS MD This examination was interpreted and the report reviewed and electronically signed by: CHELSEA REEVES MD on Jan 04 2024 3:12PM EST [id number]^AGFA_[id number]^SI^ACN Procedure Note Radiology, Radiologist, - 01/04/2024 * [...] progressed from 05/04/2017 Mild right foot osteoarthritis. Casino Change Attendant: ADELA Transcribe Date/Time: Jan 04 2024 10:13A Dictated by : UMA ROGERS MD This examination was interpreted and the report reviewed and electronically signed by: CHELSEA REEVES MD on Jan 04 2024 3:12PM EST [id number]^AGFA_IDC^SI^ACN us Generic External Data Provider [facility] Final Result documented in this encounter Visit Diagnoses Not on filedocumented in this encounter Care Teams Chiseler Head Relationship Specialty Start Date End Date Malcolm Cid MD [address] [place] [address] PCP - General Family Medicine 07/29/22 Malcolm Cid MD [address] [place] [address] PCP - [facility] 05/30/22Wednesday, BREE Marquez [address] [place] [address] Licensed Practical Nurse Family Medicine 06/04/23 Jayne Del Valle, DELMIS Licensed Practical Nurse Family Medicine 04/07/2404/30 Merry Paz LPN 05/19/24 documented as of this encounter
--- OUTSIDE RECORDS SUMMARY | 2024-07-30 19:43 | XMS_ITS | Encounter Summary ---
Author Organization [facility] Address [address] [place] [address] Care Team Providers Care Cake Froster Name Role Phone Malcolm Cid MD Primary Care Provider [phone] Malcolm Cid MD Unavailable Wednesday, Alma AQUINON Unavailable [phone] Jayne Del Valle RN Unavailable Merry Paz BUSINESS DEVELOPMENT REPRESENTATIVE Unavailable Unavailable Encounter Details Date Type Department Care Team (Late st Contact Info) Description 02/09/2023 Abstract [facility] [address] [facility] 110 [place] [address] Malcolm Cid MD 112 [facility] 110 [place], [place] [id number] Social History Tobacco Use Types Packs/Day Years [...] How often do you attend chur or yazidi services? More than 4 times per year [...] care, and heating? Not very hard 09/14/2022 [facility] of Occupat ional Health - [...] on filedocumented in this encounter Care Teams Cake Froster Relationship Specialty Start Date End Date Malcolm Cid MD 112 [facility] 110 [place] [address] PCP - General Family Medicine 07/29/22 Malcolm Cid MD [address] [facility] 110 [place] [address] PCP - [facility] 05/30/22Wednesday, BREE Marquez 112 [facility] [address] [place] [address] Licensed Practical Nurse Family Medicine 06/04/23 Jayne Del Valle, DELMIS Licensed Practical Nurse Family Medicine 04/07/2404/30 Merry Paz LPN 05/19/24 documented as of this encounter
--- OUTSIDE RECORDS SUMMARY | 2024-07-30 19:43 | XMS_ITS | Encounter Summary ---
Author Organization [facility] Address [address] [place] [address] Care Team Providers Care Dredge Mate Name Role Phone Malcolm Cid MD Primary Care Provider [phone] Malcolm Cid MD Unavailable Merry Paz LPN Unavailable Unavailable Reason for Visit * Reason Onset Date Comments Med Refill 07/26/2024 Encounter Details Date Type Department Care Team (Late st Contact Info) Description 07/26/2024 Refill [facility] [address] [place] [address] Nikky Jacobson 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 rheumatoid factor ([facility]) Social History Tobacco Use Types Packs/Day Years [...] any clubs o r organizations such as evangelical groups, unions, fraternal or athletic groups, or [...] Recorded Patient Health Questionnaire-2 Score 0 05/18/2024 [facility] [place] of Occupat ional Health - Occupational Stress [...] health care facility (including now)? No 09/14/2022 Housing Stability Vital Sign Answer Sohail e Recorded In the last 12 months, was t here a time when you were not able to pay the mortgage or rent on time? Yes 10/10/2023 In the past 12 months, how m any times have you moved where you were living? 0 10/10/2023 At any time in the past 12 m [facility], were you homeless or living in a [place] health care facility (including now)? No 10/10/2023 Sex and Gender [...] (CMS/HCC) documented in this encounter Care Teams Dredge Mate Relationship Specialty Start Date End Date Malcolm Cid MD 112 [facility] 110 [place] [address] PCP - General Family Medicine 07/29/22 Malcolm Cid MD 112 [facility] 110 [place] [address] PCP - [facility] 05/30/22 Merry Paz LPN 05/19/24 documented as of this encounter
--- OUTSIDE RECORDS SUMMARY | 2024-07-30 19:43 | XMS_ITS | Encounter Summary ---
Author Organization [facility] Address [address] [place] [address] Care Team Providers Care Category Development Analyst Name Role Phone Malcolm Cid MD Primary Care Provider [phone] Malcolm Cid MD Unavailable Jayne Del Valle RN Unavailable [phone] Merry Paz LPN Unavailable Unavailable Encounter Details Date Type Department Care Team (Late st Contact Info) Description 05/18/2024 Abstract [facility] 112 [facility] 110 [place] [address] Malcolm Cid MD 112 [facility] 110 [place] [address] Social History Tobacco Use Types [...] any clubs o r organizations such as anglican groups, unions, fraternal or athletic groups, or [...] Recorded Patient Health Questionnaire-2 Score 0 05/18/2024 [facility] [place] of Occupat ional Health - Occupational Stress [...] in the past 12 m [facility], were you homeless or living in [...] on filedocumented in this encounter Care Teams Category Development Analyst Relationship Specialty Start Date End Date Malcolm Cid MD 112 [place] [facility] 110 [place] [address] PCP - General Family Medicine 07/29/22 Malcolm Cid MD [address] [place] [facility] 110 [place] [address] PCP - [facility] 05/30/22 Jayne Del Valle, DELMIS Licensed Practical Nurse Family Medicine 04/07/2404/30 Merry Paz LPN 05/19/24 documented as of this encounter
--- OUTSIDE RECORDS SUMMARY | 2024-07-30 19:43 | XMS_ITS | Encounter Summary ---
Author Organization [facility] Address [address] [place] [address] Care Team Providers Care Stitcher Set Up Operator Automatic Name Role Phone Malcolm Cid MD Primary Care Provider [phone] Malcolm Cid MD Unavailable Merry Paz LPN Unavailable Unavailable Encounter Details Date Type Department Care Team (Late st Contact Info) Description 06/26/2024 Abstract [facility] [address] [place] [address] Merry Paz LPN Social History Tobacco Use [...] How often do you attend chur or christianity services? More than 4 times per year [...] Recorded Patient Health Questionnaire-2 Score 0 05/18/2024 [facility] [place] of Occupat ional Health - Occupational Stress [...] any time in the past 12 m [facility], were you homeless or living in [...] on filedocumented in this encounter Care Teams Stitcher Set Up Operator Automatic Relationship Specialty Start Date End Date Malcolm Cid MD 112 [facility] 110 [place] [address] PCP - General Family Medicine 07/29/22 Malcolm Cid MD 112 [facility] 110 [place] [address] PCP - [facility] 05/30/22 Merry Paz LPN 05/19/24 documented as of this encounter
--- OUTSIDE RECORDS SUMMARY | 2024-07-30 19:43 | XMS_ITS | Encounter Summary ---
Author Organization [facility] Address [address] [place] [address] Care Team Providers Care Api Product Manager Name Role Phone Malcolm Cid MD Primary Care Provider [phone] Malcolm Cid MD Unavailable Wednesday, Alma AQUINON Unavailable [phone] Jayne Del Valle RN Unavailable Merry Paz DISTRICT AGENT Unavailable Unavailable Encounter Details Date Type Department Care Team (Late st Contact Info) Description 01/04/2024 Abstract [facility] [address] [facility] 110 [place] [id number] Malcolm Cid MD 112 [facility] 110 [place], [place] [id number] Social History Tobacco Use Types Packs/Day Years [...] week 10/10/2023 How often do you attend [facility] or tenriism services? More than 4 times per year [...] care, and heating? Not very hard 10/10/2023 [facility] of Occupat ional Health - Occupational Stress [...] in a detention (including now)? No 09/14/2022 Housing Stability Vital [...] in the past 12 [address] [facility], were you homeless or living in a detention (including now)? No 10/10/2023 Sex and Gender [...] on filedocumented in this encounter Care Teams Api Product Manager Relationship Specialty Start Date End Date Malcolm Cid MD [address] [place] [address] PCP - General Family Medicine 07/29/22 Malcolm Cid MD [address] [place] [address] PCP - [facility] 05/30/22Wednesday, BREE Marquez [address] [place] [address] Licensed Practical Nurse Family Medicine 06/04/23 Jayne Del Valle, RN Licensed Practical Nurse Family Medicine 04/07/2404/30 Merry Paz LPN 05/19/24 documented as of this encounter
--- OUTSIDE RECORDS SUMMARY | 2024-07-30 19:43 | XMS_ITS | Encounter Summary ---
Author Organization [facility] Address [address] [place] [address] Care Team Providers Care Motorcycle Service Technician Name Role Phone Malcolm Cid MD Primary Care Provider [phone] Malcolm Cid MD Unavailable Wednesday, Alma AQUINON Unavailable [phone] Jayne Del Valle RN Unavailable [phone] Merry Paz PROTECTIVE SERVICES CASE WORKER Unavailable Unavailable Encounter Details Date Type Department Care Team (Late st Contact Info) Description 01/17/2024 Abstract [facility] 112 [facility] 110 [place] [id number] Malcolm Cid MD 112 [facility] 110 [place], [place] [address] Social History Tobacco Use Types Packs/Day Years [...] any clubs o r organizations such as mosque groups, unions, fraternal or athletic groups, or [...] care, and heating? Not very hard 10/10/2023 [facility] [place] of Occupat ional Health - Occupational Stress [...] in a fci (including now)? No 09/14/2022 Housing Stability Vital Sign Answer Sohail e Recorded In the last 12 months, was t here a time when you were not able to pay the mortgage or rent on time? Yes 10/10/2023 In the past 12 months, how m any times have you moved where you were living? 0 10/10/2023 At any time in the past 12 m [facility], were you homeless or living in a fci (including now)? No 10/10/2023 Sex and Gender [...] on filedocumented in this encounter Care Teams Motorcycle Service Technician Relationship Specialty Start Date End Date Palak, Rugen M, MD [address] [place] [address] PCP - General Family Medicine 07/29/22 Malcolm Cid MD [address] [place] [address] PCP - [facility] 05/30/22Wednesday, BREE Marquez [address] [place] [address] Licensed Practical Nurse Family Medicine 06/04/23 Jayne Del Valle, RN Licensed Practical Nurse Family Medicine 04/07/2404/30 Merry Paz LPN 05/19/24 documented as of this encounter
--- OUTSIDE RECORDS SUMMARY | 2024-07-30 19:43 | XMS_ITS | Encounter Summary ---
Author Organization [facility] Address [address] [place] [address] Care Team Providers Care Central Office Worker Name Role Phone Malcolm Sears MD Primary Care Provider [phone] Malcolm Sears MD Unavailable Wednesday, Alma AQUINON Unavailable [phone] Jayne Del Valle RN Unavailable Merry Paz QUARRYMAN Unavailable Unavailable Reason for Visit * Reason Onset Date Comments Med Refill 02/04/2024 Encounter Details Date Type Department Care Team (Late st Contact Info) Description 02/04/2024 Refill [facility] [address] [facility] 110 [place] [address] Marina Proctor, PA [address] [place] [address] 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 rheumatoid factor ([facility]/HCC) Social History Tobacco Use Types [...] week 10/10/2023 How often do you attend [facility] or orthodoxy services? More than 4 times [...] care, and heating? Not very hard 10/10/2023 [facility] [place] of Occupat ional Health - Occupational Stress [...] any time in the past 12 m [facility], were you homeless or living in [...] involving multiple sites with positive rheumatoid factor ([facility]) documented in this encounter Care Teams Central Office Worker Relationship Specialty Start Date End Date Malcolm Sears MD [address] [place] [address] PCP - General Family Medicine 07/29/22 Malcolm Sears MD [address] [place] [address] PCP - [facility] 05/30/22WednesdayAlma LPN [address] [place] [address] Licensed Practical Nurse Family Medicine 06/04/23 Jayne Del Valle, DELMIS Licensed Practical Nurse Family Medicine 04/07/2404/30 Merry Paz LPN 05/19/24 documented as of this encounter
--- OUTSIDE RECORDS SUMMARY | 2024-07-30 19:43 | XMS_ITS | Encounter Summary ---
Author Organization [facility] Address [address] [place] [address] Care Team Providers Care Water Registrar Name Role Phone Malcolm Cid MD Primary Care Provider [phone] Malcolm Cid MD Unavailable Wednesday, Alma AQUINON Unavailable [phone] Jayne Del Valle RN Unavailable Merry Paz ADDICTION SOCIAL WORKER Unavailable Unavailable Encounter Details Date Type Department Care Team (Late st Contact Info) Description 01/11/2023 Abstract [facility] [address] [facility] 110 [place] [address] Malcolm Cid MD 112 [facility] 110 [place], [place] [address] Social History Tobacco Use Types Packs/Day Years [...] filedocumented in this encounter Care Teams Water Registrar Relationship Specialty Start Date End Date Malcolm Cid MD [address] [facility] 110 [place] [address] PCP - General Family Medicine 07/29/22 Malcolm Cid MD [address] [facility] 110 [place] [address] PCP - [facility] 05/30/22Wednesday, BREE Marquez 112 [facility] [address] [place] [address] Licensed Practical Nurse Family Medicine 06/04/23 Jayne Del Valle, DELMIS Licensed Practical Nurse Family Medicine 04/07/2404/30 Merry Paz LPN 05/19/24 documented as of this encounter
--- OUTSIDE RECORDS SUMMARY | 2024-07-30 19:43 | XMS_ITS | Encounter Summary ---
Author Organization [facility] Address [address] [place] [address] Care Team Providers Care Welding Machine Operator Gas Name Role Phone Malcolm Cid MD Primary Care Provider [phone] Source Comments In the event this information is protected by the Federal Confidentiality of Alcohol and Drug AbusePatient Records regulations: The Federal rules restrict any use of the information to criminally investigate or prosecute any alcohol or drug abuse patient.[facility] Encounter Details Date Type Department Care Team (Late st Contact Info) Description 09/27/2017 Patient Msg Pediatric Rheumatology [address] [place], [place] [id number] Provider, Ccf Regarding refill request Social History [...] 10/03/2024 8:00 AM EDT Office Visit Rheumatology [address] [place] [address] [place] [address] [place] [address] Return in about 9 months (around 10/03/2024). documented as of this encounter Visit Diagnoses Not on filedocumented in this encounter Care Teams Welding Machine Operator Gas Relationship Specialty Start Date End Date Malcolm Cid MD PCP - General Family Medicine 01/07/15 documented as of this encounter
--- OUTSIDE RECORDS SUMMARY | 2024-07-30 19:43 | XMS_ITS | Encounter Summary ---
Author Organization [facility] Address [address] [place] [address] Care Team Providers Care Market Garden Worker Name Role Phone Malcolm Cid MD Primary Care Provider [phone] Source Comments In the event this information is protected by the Federal Confidentiality of Alcohol and Drug AbusePatient Records regulations: The Federal rules restrict any use of the information to criminally investigate or prosecute any alcohol or drug abuse patient.[facility] Encounter Details Date Type Department Care Team (Late st Contact Info) Description 09/28/2017 Patient Msg Medical Records [address] [place] [address] Provider, Ccf Oct lab reminder Social History [...] 10/03/2024 8:00 AM EDT Office Visit Rheumatology [address] [place] [address] [place] [address] [place] [address] Return in about 9 months (around 10/03/2024). documented as of this encounter Visit Diagnoses Not on filedocumented in this encounter Care Teams Market Garden Worker Relationship Specialty Start Date End Date Malcolm Cid MD PCP - General Family Medicine 01/07/15 documented as of this encounter
--- OUTSIDE RECORDS SUMMARY | 2024-07-30 19:43 | XMS_ITS | Encounter Summary ---
Author Organization [facility] Address [address] [place] [address] Care Team Providers Care Electrical Installer Name Role Phone Malcolm Cid MD Primary Care Provider [phone] Malcolm Cid MD Unavailable Wednesday, Alma AQUINON Unavailable [phone] Jayne Del Valle RN Unavailable Merry Paz SWING RIDE OPERATOR Unavailable Unavailable Encounter Details Date Type Department Care Team (Late st Contact Info) Description 01/12/2023 Abstract [facility] [address] [facility] 110 [place] [address] Malcolm Cid MD 112 [facility] 110 [place], [place] [address] Social History Tobacco Use Types Packs/Day Years [...] How often do you attend chur or moravian services? More than 4 times per year [...] filedocumented in this encounter Care Teams Electrical Installer Relationship Specialty Start Date End Date Malcolm Cid MD [address] [facility] 110 [place] [address] PCP - General Family Medicine 07/29/22 Malcolm Cid MD [address] [facility] 110 [place] [address] PCP - [facility] 05/30/22Wednesday, BREE Marquez 112 [facility] [address] [place] [address] Licensed Practical Nurse Family Medicine 06/04/23 Jayne Del Valle, DELMIS Licensed Practical Nurse Family Medicine 04/07/2404/30 Merry Paz LPN 05/19/24 documented as of this encounter
--- OUTSIDE RECORDS SUMMARY | 2024-07-30 19:43 | XMS_ITS | Encounter Summary ---
Author Organization [facility] Address [address] [place] [address] Care Team Providers Care Data Warehousing Manager Name Role Phone Malcolm Cid MD Primary Care Provider [phone] Malcolm Cid MD Unavailable Wednesday, Alma AQUINON Unavailable [phone] Jayne Del Valle RN Unavailable Merry Paz METALLOGRAPHY TEACHER Unavailable Unavailable Encounter Details Date Type Department Care Team (Late st Contact Info) Description 01/11/2023 Abstract [facility] [address] [facility] 110 [place] [address] Malcolm Cid MD 112 [facility] 110 [place], [place] [address] Social History Tobacco Use Types Packs/Day Years [...] any clubs o r organizations such as temple groups, unions, fraternal or athletic groups, or [...] and heating? Not very hard 09/14/2022 [facility] of Occupat ional Health - Occupational Stress [...] filedocumented in this encounter Care Teams Data Warehousing Manager Relationship Specialty Start Date End Date Malcolm Cid MD [address] [facility] 110 [place] [address] PCP - General Family Medicine 07/29/22 Malcolm Cid MD [address] [facility] 110 [place] [address] PCP - [facility] 05/30/22Wednesday, BREE Marquez 112 [facility] [address] [place] [address] Licensed Practical Nurse Family Medicine 06/04/23 Jayne Del Valle, DELMIS Licensed Practical Nurse Family Medicine 04/07/2404/30 Merry Paz LPN 05/19/24 documented as of this encounter
--- OUTSIDE RECORDS SUMMARY | 2024-07-30 19:43 | XMS_ITS | Encounter Summary ---
Author Organization [facility] Address [address] [place] [place] [address] Care Team Providers Care Air Export Agent Name Role Phone Malcolm Cid MD Primary Care Provider [phone] Malcolm Cid MD Unavailable Wednesday, Alma AQUINON Unavailable [phone] Jayne Del Valle RN Unavailable [phone] Merry Paz WIRE FENCE BUILDER Unavailable Unavailable Encounter Details Date Type Department Care Team (Late st Contact Info) Description 02/09/2024 Abstract [facility] 112 [facility] 110 [place] [address] Malcolm Cid MD 112 [facility] 110 [place], [place] [address] Social History Tobacco Use Types Packs/Day Years [...] How often do you attend chur or catholic services? More than 4 times per [...] care, and heating? Not very hard 10/10/2023 [facility] [place] of Occupat ional Health - Occupational [...] any time in the past 12 m [facility], were you homeless or [...] on filedocumented in this encounter Care Teams Air Export Agent Relationship Specialty Start Date End Date Palak, Rugen M, MD [address] [place] [address] PCP - General Family Medicine 07/29/22 Malcolm Cid MD [address] [place] [address] PCP - [facility] 05/30/22Wednesday, BREE Marquez [address] [place] [address] Licensed Practical Nurse Family Medicine 06/04/23 Jayne Del Valle, RN Licensed Practical Nurse Family Medicine 04/07/2404/30 Merry Paz LPN 05/19/24 documented as of this encounter
--- OUTSIDE RECORDS SUMMARY | 2024-07-30 19:43 | XMS_ITS | Clinical Summary ---
Author Organization [facility] Address [address] [place] [address] Care Team Providers Care Suede Brusher Name Role Phone Malcolm Cid MD Primary Care Provider [phone] Malcolm Cid MD Unavailable Merry Paz LPN [...] tablet 07/27/19 25 025 Active HYDROcodone-acet aminophen (Colbert) 5-325 MG tabletIndication s:Rheumatoid arthritis involving multiple [...] 25 025 Discontinu ed(Reorder ) HYDROcodone-acet aminophen (Colbert) 5-325 MG tabletIndication s: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) Take 1 tablet by mouth every 12 (twelve) hours if needed for severe pain for up to 5 days 10 tablet 07/04/19 25 025 Discontinu ed(Reorder ) HYDROcodone-acet aminophen (Colbert) 5-325 MG tabletIndication s:Rheumatoid arthritis involving multiple [...] Refill [facility] [address] [place] [address] Nikky Jacobson 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) 07/26/2024 Refill [facility] [address] [place] [address] [place] [address] Marina Proctor PA 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) 07/20/2024 Refill [facility] [address] [place] [address] [place] [address] Marina Proctor PA 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) 07/11/2024 Refill [facility] [address] [place] [address] [place] [address] Marina Proctor PA 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) 07/07/2024 Refill [facility] [address] [place] [address] [place] [address] Marina Proctor PA 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) 07/03/2024 Refill [facility] [address] [place] [address] [place] [address] Marina Proctor PA 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 rheumatoid factor ([facility]/HCC) 06/28/2024 [facility] [address] [place] [address] Merry Paz LPN 06/28/2024 Refill [facility] [address] [place] [address] [place] [address] Malcolm Cid MD 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 rheumatoid factor ([facility]) 06/27/2024 Telephone [facility] [address] [place] [address] Merry Paz LPN 06/27/2024 Patient [facility] [address] [place] [address] Merry Paz LPN 06/26/2024 Abstract [facility] [address] [place] [address] Merry Paz, [facility] 06/26/2024 Refill [facility] [address] [place] [address] Marina Proctor PA 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) 06/26/2024 Telephone [facility] [address] [place] [address] [place] [address] Malcolm Cid MD Med Refill 06/26/2024 Refill [facility] [address] [place] [address] [place] [address] Marina Proctor PA 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) 06/20/2024 Patient Outreach [facility] [address] [place] [address] Merry Paz, LOCATION DIRECTOR 06/19/2024 Refill [facility] [address] [place] [address] [place] [address] Marina Proctor PA 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) 06/12/2024 Refill [facility] [address] [place] [address] [place] [address] Marina Proctor PA 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) 06/05/2024 Refill [facility] [address] [place] [address] [place] [address] Marina Proctor PA 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) 06/05/2024 Refill [facility] [address] [place] [address] [place] [address] Malcolm Cid MD Other chronic pain 05/30/2024 Refill [facility] [address] [place] [address] [place] [address] Malcolm Cid MD 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) 05/29/2024 Refill [facility] [address] [place] [address] [place] [address] Marina Proctor PA 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) 05/23/2024 Refill [facility] [address] [facility] 110 [place] [address] Marina Proctor PA 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) 05/18/2024 9:00 AM EDT Office Visit [facility] [address] [facility] 110 [place] [address] Marina Proctor PA 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); 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); Anemia, unspecified type; Toe joint pain, left 05/18/2024 Abstract [facility] [address] [facility] 110 [place] [address] Malcolm Cid MD 05/18/2024 Abstract [facility] [address] [facility] [address] [place] [address] Malcolm Cid MD 05/18/2024 Clinisync Result Encounter [facility] External Department Unsolicited Marina Proctor PA 05/18/2024 Bamboo flowsheet [facility] [address] [facility] [address] [place] [address] Marina Proctor PA 05/18/2024 Travel 05/16/2024 Refill [facility] [address] [facility] 110 [place] [address] Marina Proctor PA Abscess of right index finger 05/16/2024 Refill [facility] [address] [place] [address] Malcolm Cid MD 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 rheumatoid factor ([facility]/HCC) 05/10/2024 Refill [facility] [address] [facility] [address] [place] [address] Marina Proctor PA Abscess of right index finger 05/02/2024 Refill [facility] [address] [facility] [address] [place] [address] Malcolm Cid MD 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 rheumatoid factor ([facility]) from Last 3 Months Immunizations Immunization Administration [...] often do you attend chur ch or presybeterian services? More than 4 times [...] Recorded Patient Health Questionnaire-2 Score 0 05/18/2024 [facility] [place] of Occupat ional Health - Occupational Stress [...] time in the past 12 m [facility], were you homeless or living in [...] URIC ACID (05/18/2024 9:47 AM EDT) Pathologist [facility] URIC ACID 9.2(H) 3.5 - 7.2 mg/dL TB 05/18/2024 9:47 AM EDT 05/18/2024 9:50 AM EDT Narrative CLINIS[facility] - 05/18/2024 10:51 AM EDT us Marina MARINELLI CLINISYNADEEN Final Result [facility]IN[facility]DEEN [facility] * (ABNORMAL) ALL SED RATE (05/18/2024 9:47 AM EDT) Pathologist [facility] SED RATE 31(H) <=15 mm/hr TB 05/18/2024 9:47 AM EDT 05/18/2024 9:50 AM EDT Narrative CL[facility]ISY[facility] - 05/18/2024 11:06 AM EDT us Marina MARINELLI CLINISYNC Final Result [facility]IS[facility]NC [facility] * (ABNORMAL) ALL CBC WITH AUTO [...] 3 Months Insurance [employer] Care Teams Suede Brusher Relationship Specialty Start Date End Date Malcolm Cid MD [address] [facility] 110 [place] [address] PCP - General Family Medicine 07/29/22 Malcolm Cid MD [address] [facility] 110 [place] [address] [facility] 05/30/22 Merry Paz LPN 05/19/24
--- OUTSIDE RECORDS SUMMARY | 2024-07-30 19:43 | XMS_ITS | Encounter Summary ---
Author Organization [facility] Address [address] [place] [address] Care Team Providers Care Business Continuity Analyst Name Role Phone Malcolm Cid MD Primary Care Provider [phone] Source Comments In the event this information is protected by the Federal Confidentiality of Alcohol and Drug AbusePatient Records regulations: The Federal rules restrict any use of the information to criminally investigate or prosecute any alcohol or drug abuse patient.[facility] Encounter Details Date Type Department Care Team (Late st Contact Info) Description 12/06/2017 Patient Msg Medical Records [address] [place] [address] Provider, Ccf Labs needed for Dr. Castro [...] 10/03/2024 8:00 AM EDT Office Visit Rheumatology [address] [place] [address] [place] [address] [place] [address] Return in about 9 months (around 10/03/2024). documented as of this encounter Visit Diagnoses Not on filedocumented in this encounter Care Teams Business Continuity Analyst Relationship Specialty Start Date End Date Malcolm Cid MD PCP - General Family Medicine 01/07/15 documented as of this encounter
[2024-07-30] MEDS: ALLOPURINOL 100 MG TABLET 800 MG PO (21:35)
[2024-07-31] VITALS: BP 131/76; PULSE 71; TEMP 36.5; O2SAT 98
[2024-07-31] MEDS: OXYCODONE HCL/ACETAMINOPHEN 5MG/325MG 2 TAB PO ×2 (00:06→04:46)
[2024-07-31] MEDS: TRAZODONE HCL 50 MG TABLET 25 MG PO (01:22)
[2024-07-31 03:04] VITALS: BP 121/65; PULSE 733; TEMP 36.6; O2SAT 98
[2024-07-31] MEDS: KETOROLAC TROMETHAMINE 30 MG/ML VIAL IVP ×2 (03:05→09:26)
--- NOTE | 2024-07-31 06:12 | P.DS_ITS ---
DS: Providers Provider Date of admission: 07/29/24 23:34 Primary care physician: LEYDI ACEVES DS: Diagnosis Discharge Diagnosis (1) Intractable pain: (2) Polyarthralgia: (3) Rheumatoid arthritis flare: (4) Acute hypernatremia: (5) Hyperglycemia, drug-induced: Plan Admission findings: Low-grade fever 100.1 typical for him when he gets a rheumatoid flare, sinus tachycardia, uncontrolled hypertension, leukocytosis, hyponatremia, hyperglycemia, elevated CRP secondary to acute rheumatoid arthritis flare Acute RA-pain improving after narcotic medications and Decadron Hyponatremia likely related to the above and that is returned to normal continue to monitor as an outpatient Fkkipmbyzmvsr-qylp-vcsoxgk from the steroids-monitor as an outpatient as it may be an indication of a borderline diabetes mellitus Acute diarrhea-resolved Admission status: Patient initially placed to observation status, requiring IV narcotics, if improved later today possible discharge if does require further hospitalization likely changed to inpatient status as medically necessary treatment will span 2 midnights ? DS: Summary Hospital Course Hospital Course: Patient is seen and evaluated in the emergency room after being treated as an outpatient with oral steroids, pain was increasing, difficulty ambulating secondary to the pain was admitted overnight to observation status given IV Decadron, patient ended up having acute episode of diarrhea several times, stool cultures negative, the diarrhea has resolved, that could be the source of his fever as well, and the cause of his acute exacerbation of his RA was acute gastroenteritis, pain is improved today, he will get a dose of Decadron this morning and then a higher dose prednisone taper starting at 50 mg. Short course of Percocet written for just this flareup. Medications to this. Follow-up with PCP within the next week. Inpatient status secondary to IV narcotics necessary to control rheumatoid arthritis symptoms spanning 2 midnights Treatment notes: Time Spent with Patient Time attestation: Total time spent providing and/or coordinating discharge services: Exam Constitutional Vital Signs, click to edit/add: Last Vital Signs Temp 97.9 F 07/31/24 03:04 Pulse 733 H 07/31/24 03:04 Resp 18 07/31/24 03:04 BP 121/65 07/31/24 03:04 Pulse Ox 98 07/31/24 03:04 O2 Del Method Room Air 07/31/24 03:04 Documenting provider has reviewed patient's vital signs: yes Common normals: no apparent distress, average body habitus, oriented x3, no limitations, healthy appearing, alert and well nourished Lymph Lymphatic: no lymphadenopathy noted Chest Common normals: inspection of chest normal and palpation of chest normal Respiratory Common normals: normal respiratory effort, no retractions and no use of accessory muscles Cardio Common normals: regular rate and regular rhythm GI Common normals: Normal to inspection, nondistended, normoactive bowel sounds present DS: Data Data Completed and Pending Labs on day of discharge: Labs from last 24 hours 07/30/24 07/30/24 15:45 05:49 WBC 10.7 RBC 4.14 L Hgb 12.6 L Hct 36.3 L MCV 87.7 MCH 30.4 MCHC 34.7 RDW 13.2 Plt Count 208 MPV 11.5 Seg Neuts % (Manual) 94.0 H Band Neutrophils % 3.0 Lymphocytes % (Manual) 1.0 L Monocytes % (Manual) 2.0 Eosinophils % (Manual) 0.0 L Basophils % (Manual) 0.0 L Neutrophils # (Manual) 10.05 H Band Neutrophils # 0.3 Lymphocytes # (Manual) 0.10 L Monocytes # (Manual) 0.21 L Eosinophils # (Manual) 0.00 Basophils # (Manual) 0.00 Sodium 137 Potassium 4.0 Chloride 100 Carbon Dioxide 26.9 Anion Gap 14.1 BUN 15.0 Creatinine 1.10 Est GFR ( Amer) >60 Est GFR (Non-Af Amer) >60 BUN/Creatinine Ratio 13.6 Glucose 259 H Calcium 9.1 Total Bilirubin 0.6 AST 33 ALT 35 Alkaline Phosphatase 91 Total Protein 6.7 Albumin 2.9 L Globulin 3.8 Albumin/Globulin Ratio 0.8 C. difficile Toxin PCR Negative Discharge Plan Discharge Disposition: Home, Self-Care Condition: Good Discharge Medications: New prednisone 10 mg tablet 50 mg PO DAILY Qty: 47 0RF Rx Instructions: 5/day for 3 days. 4/day for 3 days, 3/day for 3 days, 2/day for 3 days, 1/day for 3 days, 1/2 /day for 4 days oxycodone-acetaminophen 5-325 mg Tablet 1 tab PO Q4H PRN (Reason: pain (scale score 7-10)) 5 Days Qty: 15 0RF Continued gabapentin [Neurontin] 300 mg capsule 300 mg PO TID allopurinol 300 mg tablet 800 mg PO .evening colchicine 0.6 mg tablet 0.6 mg PO .every other clonidine HCl 0.1 mg tablet 0.1 mg PO BID amlodipine 10 mg tablet 10 mg PO QDAY tramadol 50 mg tablet 50 mg PO Q12H PRN (Reason: pain) Print Language: Kinyarwanda Forms: Portal Instructions Follow Up Appointments: August 07 @ 10:30am with [facility] [phone]
[2024-07-31] MEDS: GABAPENTIN 300 MG CAPSULE PO (06:25)
[2024-07-31] MEDS: HYOSCYAMINE SULFATE 0.125 MG TAB.SUBL SL (06:31)
[2024-07-31 07:38] VITALS: BP 141/82; PULSE 70; TEMP 36.6; O2SAT 98
[2024-07-31 08:00] VITALS: BP 119/66; PULSE 82; TEMP 36.6
--- NOTE | 2024-07-31 08:55 | CM.NOTE ---
Rounds made with Dr. John, pt will discharge to home today. No discharge needs identified. Pt up ambulatory in room.
[2024-07-31] MEDS: AMLODIPINE BESYLATE 5 MG TABLET 10 MG PO (09:25)
[2024-07-31] MEDS: CLONIDINE HCL 0.1 MG TABLET PO (09:26)
[2024-07-31] MEDS: DEXAMETHASONE SOD PHOS 10 MG/ML VIAL IV (09:26)
--- OUTSIDE RECORDS SUMMARY | 2024-07-31 11:13 | XMS_ITS | Encounter Summary ---
Author Organization [facility] Address [address] [place] [address] Care Team Providers Care Health Insurance Assessor Name Role Phone Malcolm Cid MD Primary Care Provider +1- [phone] Source Comments In the event this information is protected by the Federal Confidentiality of Alcohol and Drug AbusePatient Records regulations: The Federal rules restrict any use of the information to criminally investigate or prosecute any alcohol or drug abuse patient.[facility] Encounter Details Date Type Department Care Team (Late st Contact Info) Description 02/11/2018 Patient Msg Rheumatology [address] [place] [address] Provider, Ccf response - Dr [...] 10/03/2024 8:00 AM EDT Office Visit Rheumatology [address] [place] [address] [place] [address] [place] [address] Return in about 9 months (around 10/03/2024). documented as of this encounter Visit Diagnoses Not on filedocumented in this encounter Care Teams Health Insurance Assessor Relationship Specialty Start Date End Date Malcolm Cid MD PCP - General Family Medicine 01/07/15 documented as of this encounter
--- OUTSIDE RECORDS SUMMARY | 2024-07-31 11:13 | XMS_ITS | Encounter Summary ---
Author Organization [facility] Address [address] [place] [address] Care Team Providers Care Sample Body Builder Name Role Phone Malcolm Cid MD Primary Care Provider +1- [phone] Source Comments In the event this information is protected by the Federal Confidentiality of Alcohol and Drug AbusePatient Records regulations: The Federal rules restrict any use of the information to criminally investigate or prosecute any alcohol or drug abuse patient.[facility] Encounter Details Date Type Department Care Team (Late st Contact Info) Description 07/05/2019 Patient Msg Rheumatology [address] [place] [address] Provider, Ccf Lab reminder from [...] 10/03/2024 8:00 AM EDT Office Visit Rheumatology [address] [place] [address] [place] [address] [place] [address] Return in about 9 months (around 10/03/2024). documented as of this encounter Visit Diagnoses Not on filedocumented in this encounter Care Teams Sample Body Builder Relationship Specialty Start Date End Date Malcolm Cid MD PCP - General Family Medicine 01/07/15 documented as of this encounter
--- OUTSIDE RECORDS SUMMARY | 2024-07-31 11:13 | XMS_ITS | Encounter Summary ---
Author Organization [facility] Address [address] [place] [address] Care Team Providers Care Drier Unloader Name Role Phone Malcolm Cid MD Primary Care Provider +1- [phone] Source Comments In the event this information is protected by the Federal Confidentiality of Alcohol and Drug AbusePatient Records regulations: The Federal rules restrict any use of the information to criminally investigate or prosecute any alcohol or drug abuse patient.[facility] Encounter Details Date Type Department Care Team (Late st Contact Info) Description 02/27/2018 Patient Msg Rheumatology [address] [place] [address] [place] [address] [place], [place] [id number] March lab reminder Social History Tobacco Use [...] 10/03/2024 8:00 AM EDT Office Visit Rheumatology [address] [place] [address] [place] [address] [place] [address] Return in about 9 months (around 10/03/2024). documented as of this encounter Visit Diagnoses Not on filedocumented in this encounter Care Teams Drier Unloader Relationship Specialty Start Date End Date Malcolm Cid MD PCP - General Family Medicine 01/07/15 documented as of this encounter
--- OUTSIDE RECORDS SUMMARY | 2024-07-31 11:13 | XMS_ITS | Encounter Summary ---
Author Organization [facility] Address [address] [place] [address] Care Team Providers Care Silver Holloware Assembler Name Role Phone Malcolm Cid MD Primary Care Provider +1- [phone] Source Comments In the event this information is protected by the Federal Confidentiality of Alcohol and Drug AbusePatient Records regulations: The Federal rules restrict any use of the information to criminally investigate or prosecute any alcohol or drug abuse patient.[facility] Encounter Details Date Type Department Care Team (Late st Contact Info) Description 03/02/2018 Patient Msg Infectious Disease [address] [place], [place] [id number] Provider, Ccf Update rx's information Social History [...] 10/03/2024 8:00 AM EDT Office Visit Rheumatology [address] [place] [address] [place] [address] [place] [address] Return in about 9 months (around 10/03/2024). documented as of this encounter Visit Diagnoses Not on filedocumented in this encounter Care Teams Silver Holloware Assembler Relationship Specialty Start Date End Date Malcolm Cid MD PCP - General Family Medicine 01/07/15 documented as of this encounter
--- OUTSIDE RECORDS SUMMARY | 2024-07-31 11:13 | XMS_ITS | Clinical Summary ---
Author Organization [facility] Address [address] [place] [address] Care Team Providers Care Business Liaison Officer Name Role Phone Malcolm Cid MD Primary Care Provider +1- [phone] Medications amLODIPine (NORVASC) 5 mg tablet Take 1 tablet by mouth twice daily. 180 tablet 3 12/25/2020 Active colchicine 0.6 mg tabletIndicatio ns:Idiopathic chronic gout of multiple sites with tophus TAKE 1 TABLET BY MOUTH EVERY OTHER DAY 90 tablet 1 09/22/2022 Active allopurinol (ZYLOPRIM) 100 mg tabletIndicatio ns:Idiopathic chronic gout of multiple sites with tophus Take two 300 mg tabs (600 mg) + one and a half 100 mg tabs (150 mg) =750 mg daily 90 tablet 1 06/24/2023 Active allopurinol (ZYLOPRIM) 300 mg tabletIndicatio ns:Idiopathic chronic gout of multiple sites with tophus Take two 300 mg tabs (600 mg) + one and a half 100 mg tabs (150 mg) =750 mg daily 180 tablet 1 06/24/2023 Active lidocaine (LIDODERM) 5 % Apply 1 Patch as directed every 24 hours. 30 Patch 01/06/2024 Active predniSONE (DELTASONE) 5 mg tablet Take 6 tab in AM on day 1 then reduce dose by 1 tablet every day until off 21 tablet 02/04/2024 Active Active Problems Problem Noted Date Diagnosed Date Idiopathic chronic gout of multiple sites with t ophus 01/18/2018 Rheumatoid arthritis of mult iple sites with negative rheumatoid factor 05/10/2017 Nicotine use disorder, F17.2 04/26/2017 Gout 04/26/2017 Chronic pain 04/26/2017 Resolved Problems Problem Noted Date Diagnosed Date Resolved Date Rheumatoid arthritis flare 04/25/2017 0 05/10/2017 Family History Medical History Relation Comments gout Maternal Uncle several uncles w ith gout rheumatoid arthritis Other fibromyalgia Sister lupus Sister Relation Status Comments Maternal Uncle Other Sister Social History Tobacco Use Types Packs/Day Years Used Date Smoking Tobacco: Never Smokeless Tobacco: Current Chew Tobacco Cessation:Ready to Q uit: Not Asked; Counseling Given: Not Answered PHQ-2 Answer Date Recorded PHQ-2 score 1 01/14/2024 Area Deprivation Index Answer Date Adis rded National Score (1-100), lower number is lower ri sk 87 08/14/2022 State Score (1-10), lower number is lower risk 8 08/14/2022 Data from: https://www.neighborhoodatlas.medicine.[facility]/. Last address used for calculation [address] 08/14/2022 Sex and Gender Information Value Date Recorded Sex Assigned at Male 11/09/2019 12:50 PM EDT Legal Sex Male 3:20 PM EST Gender Identity Male 11/09/2019 12:50 PM EDT Sexual Orientation Straight 11/09/2019 12 :50 PM EDT Last Filed Vital Signs Vital Sign Reading Time Taken Comments Blood Pressure 110/77 01/04/2024 8:12 AM EST Pulse 84 01/04/2024 8:12 AM EST Temperature 36.9 C (98.4 F) 04/02/2020 8:14 AM EST Respiratory Rate 18 01/04/2024 8:12 AM EST Oxygen Saturation 100% 06/24/2023 2:34 PM EDT Inhaled Oxygen Concentration - - Weight 107.4 kg (236 lb 12.4 oz) 01/04/2024 8:12 AM EST Height 188 cm (6' 2.02 ) 01/04/2024 8:12 AM EST Body Mass Index 30.39 01/04/2024 8:12 AM EST Plan of Treatment Upcoming Encounters Date Type Department Care Team (Late st Contact Info) Description 10/03/2024 8:00 AM EDT Office Visit Rheumatology [address] [place], [place] [id number] [place] [address] [place] [address] Return in about 9 months (around 10/03/2024). Health Maintenance Due Date Last Done Comments Annual PCP Team Chronic Dise ase Visit 02/26/2008 Anxiety Screening 02/26/2008 Depression Screening 02/26/2008 HIV Screening 02/26/2008 Hepatitis B Vaccine (1 of 3 - 19+ 3-dose series) 2009 Covid-19 Vaccine (2023-2 5 season) 2023 Influenza Vaccine (Season Ended) 2024 10/14/19, 12/23/2017 Serum Creatinine 12/29/2024 12/30/2023, , 03/04/2023, Additional history exists DTaP,Tdap,Td Vaccine (6 - Td or Tdap) 06/01/2026 06/01/2016, 10/20/1993, 07/26/1991, Additional history exists Hepatitis C Screening Completed 04/02/2020 Procedures Procedure Name Priority Date/Time Associated Diagnosis Comments CREATININE BLD Routine 12/30/2023 2:24 PM EDT Chronic tophaceous gout Encounter for long-term (current) use of medications *HEP C AB Routine 04/02/2020 10:12 AM EST Encounter for long-term (current) use of medications from Last 3 Months or Most Recently Relevant to Health Maintenance Results * (ABNORMAL) CREATININE BLD (12/30/2023 2:24 PM EDT) Creatinine 1.32(H) 0.73 - 1.22 mg/dL 12/30/2023 2:55 PM EDT [facility] Estimated Glomerular Filtration Rate 73 >=60 mL/min/1.7 3m 12/30/2023 2:55 PM EDT [facility] Comment:Estimated Glomerular Filtration Rate (eGFR) is calculated using the 2020 CKD-EPI creatinine equation. This equation utilizes serum creatinine, sex, and age as parameters. The creatinine assay has traceable calibration to isotope dilution- mass spectrometry. Refer to KDIGO guidelines for clinical interpretation. In patients with unstable renal function, e.g. those with acute kidney injury, the eGFR may not accurately reflect actual GFR. Blood BLOOD SPECIMEN / Unknown Venipuncture / Unknown 12/30/2023 2:24 PM EDT 12/30/2023 2:24 PM EDT Delmy Castro MD LABORATORY Final Result [facility] [address] [place] [address] * HEP REMOTE PANEL BL (04/02/2020 10:12 AM EST) Hep B Core Ab, Total Negative Negative 04/02/2020 7:30 PM EST [facility] Hep C Antibody IA Negative Negative 04/02/2020 7:31 PM EST [facility] HBsAg Negative Negative 04/02/2020 7:31 PM EST [facility] Hep B Surface Ab, Qual Negative Negative 04/02/2020 7:31 PM EST [facility] Comment:NEGATIVE Blood BLOOD SPECIMEN / Unknown 04/02/2020 10:12 AM EST 04/02/2020 10:14 AM EST Joseph Olea APRN.[facility] Final Res ult Performing Organization Address City/[facility]/ZIP Co de Phone Number [facility] [address] [place] [address] [facility] [address] [place] [address] from Last 3 Months or Most Recently Relevant to Health Maintenance Insurance [employer] Care Teams Business Liaison Officer Relationship Specialty Start Date End Date Malcolm Cid MD PCP - General Family Medicine 01/07/15
--- OUTSIDE RECORDS SUMMARY | 2024-07-31 11:13 | XMS_ITS | Encounter Summary ---
Author Organization [facility] Address [address] [place] [address] Care Team Providers Care Feedlot Manager Name Role Phone Malcolm Cid MD Primary Care Provider +1- [phone] Source Comments In the event this information is protected by the Federal Confidentiality of Alcohol and Drug AbusePatient Records regulations: The Federal rules restrict any use of the information to criminally investigate or prosecute any alcohol or drug abuse patient.[facility] Encounter Details Date Type Department Care Team (Late st Contact Info) Description 03/10/2019 Patient Msg Rheumatology [address] [place], [place] [phone] [place] [address] [place], [place] [phone] Previsit lab reminder Social History Tobacco Use [...] 10/03/2024 8:00 AM EDT Office Visit Rheumatology [address] [place] [address] [place] [address] [place] [address] Return in about 9 months (around 10/03/2024). documented as of this encounter Visit Diagnoses Not on filedocumented in this encounter Care Teams Feedlot Manager Relationship Specialty Start Date End Date Malcolm Cid MD PCP - General Family Medicine 01/07/15 documented as of this encounter
--- OUTSIDE RECORDS SUMMARY | 2024-07-31 11:13 | XMS_ITS | Encounter Summary ---
Author Organization [facility] Address [address] [place] [address] Care Team Providers Care Lap Grinder Name Role Phone Malcolm Cid MD Primary Care Provider +1- [phone] Source Comments In the event this information is protected by the Federal Confidentiality of Alcohol and Drug AbusePatient Records regulations: The Federal rules restrict any use of the information to criminally investigate or prosecute any alcohol or drug abuse patient.[facility] Encounter Details Date Type Department Care Team (Late st Contact Info) Description 02/12/2020 Patient Msg Rheumatology [address] [place], [place] [phone] [place] [address] [place] [address] Lab reminder Social History Tobacco Use Types Packs/Day Years Used Date Smoking Tobacco: Never Smokeless Tobacco: Current Chew PHQ-2 Answer Date Recorded PHQ-2 score 6 11/09/2019 Area Deprivation Index Answer Date Adis rded National Score (1-100), lower number is lower ri sk Not on file 02/05/2020 State Score (1-10), lower number is lower risk N ot on file 02/05/2020 Data from: https://www.neighborhoodatlas.medicine.[facility]/. Last address used for calculation Not [...] 10/03/2024 8:00 AM EDT Office Visit Rheumatology [address] [place], [place] [id number] [place] [address] [place], [place] [id number] Return in about 9 months (around 10/03/2024). documented as of this encounter Visit Diagnoses Not on filedocumented in this encounter Care Teams Lap Grinder Relationship Specialty Start Date End Date Malcolm Cid MD PCP - General Family Medicine 01/07/15 documented as of this encounter
--- OUTSIDE RECORDS SUMMARY | 2024-07-31 11:14 | XMS_ITS | Encounter Summary ---
Author Organization [facility] Address [address] [place] [address] Care Team Providers Care Agricultural Economist Name Role Phone Malcolm Cid MD Primary Care Provider +1- [phone] Source Comments In the event this information is protected by the Federal Confidentiality of Alcohol and Drug AbusePatient Records regulations: The Federal rules restrict any use of the information to criminally investigate or prosecute any alcohol or drug abuse patient.[facility] Encounter Details Date Type Department Care Team (Late st Contact Info) Description 03/04/2018 Patient Msg Infectious Disease [address] [place], [place] [phone] Provider, Ccf Dr Castro reply Social History [...] 10/03/2024 8:00 AM EDT Office Visit Rheumatology [address] [place] [address] [place] [address] [place] [address] Return in about 9 months (around 10/03/2024). documented as of this encounter Visit Diagnoses Not on filedocumented in this encounter Care Teams Agricultural Economist Relationship Specialty Start Date End Date Malcolm Cid MD PCP - General Family Medicine 01/07/15 documented as of this encounter
--- OUTSIDE RECORDS SUMMARY | 2024-07-31 11:14 | XMS_ITS | Encounter Summary ---
Author Organization [facility] Address [address] [place] [address] Care Team Providers Care Web Support Engineer Name Role Phone Malcolm Cid MD Primary Care Provider +1- [phone] Source Comments In the event this information is protected by the Federal Confidentiality of Alcohol and Drug AbusePatient Records regulations: The Federal rules restrict any use of the information to criminally investigate or prosecute any alcohol or drug abuse patient.[facility] Encounter Details Date Type Department Care Team (Late st Contact Info) Description 09/09/2018 Patient Msg Rheumatology [address] [place], [place] [phone] Provider, Ccf Reply Social History Tobacco Use [...] 10/03/2024 8:00 AM EDT Office Visit Rheumatology [address] [place] [address] [place] [address] [place] [address] Return in about 9 months (around 10/03/2024). documented as of this encounter Visit Diagnoses Not on filedocumented in this encounter Care Teams Web Support Engineer Relationship Specialty Start Date End Date Malcolm Cid MD PCP - General Family Medicine 01/07/15 documented as of this encounter
--- OUTSIDE RECORDS SUMMARY | 2024-07-31 11:14 | XMS_ITS | Encounter Summary ---
Author Organization [facility] Address [address] [place] [address] Care Team Providers Care Blood Collector Name Role Phone Malcolm Cid MD Primary Care Provider +1- [phone] Source Comments In the event this information is protected by the Federal Confidentiality of Alcohol and Drug AbusePatient Records regulations: The Federal rules restrict any use of the information to criminally investigate or prosecute any alcohol or drug abuse patient.[facility] Encounter Details Date Type Department Care Team (Late st Contact Info) Description 04/05/2020 Patient Msg Rheumatology [address] [place], [place] [phone] Provider, Ccf Results Social History Tobacco Use Types Packs/Day Years Used Date Smoking Tobacco: Never Smokeless Tobacco: Current Chew PHQ-2 Answer Date Recorded PHQ-2 score 4 03/31/2020 Area Deprivation Index Answer Date Adis rded National Score (1-100), lower number is lower ri sk Not on file 02/05/2020 State Score (1-10), lower number is lower risk N ot on file 02/05/2020 Data from: https://www.neighborhoodatlas.medicine.[facility].edu/. Last address used for calculation Not [...] 10/03/2024 8:00 AM EDT Office Visit Rheumatology [address] [place] [address] [place] [address] [place], [place] [id number] Return in about 9 months (around 10/03/2024). documented as of this encounter Visit Diagnoses Not on filedocumented in this encounter Care Teams Blood Collector Relationship Specialty Start Date End Date Malcolm Cid MD PCP - General Family Medicine 01/07/15 documented as of this encounter
--- OUTSIDE RECORDS SUMMARY | 2024-07-31 11:14 | XMS_ITS | Encounter Summary ---
Author Organization [facility] Address [address] [place] [address] Care Team Providers Care Geek Squad Manager Name Role Phone Malcolm Cid MD Primary Care Provider +1- [phone] Source Comments In the event this information is protected by the Federal Confidentiality of Alcohol and Drug AbusePatient Records regulations: The Federal rules restrict any use of the information to criminally investigate or prosecute any alcohol or drug abuse patient.[facility] Encounter Details Date Type Department Care Team (Late st Contact Info) Description 05/09/2020 Patient Msg Rheumatology [address] [place], [place] [id number] Provider, Ccf Results Social History Tobacco Use [...] on file 02/05/2020 Data from: https://www.neighborhoodatlas.medicine.[facility].edu/. Last address used for calculation Not [...] 10/03/2024 8:00 AM EDT Office Visit Rheumatology [address] [place] [address] [place] [address] [place] [address] Return in about 9 months (around 10/03/2024). documented as of this encounter Visit Diagnoses Not on filedocumented in this encounter Care Teams Geek Squad Manager Relationship Specialty Start Date End Date Malcolm Cid MD PCP - General Family Medicine 01/07/15 documented as of this encounter
--- OUTSIDE RECORDS SUMMARY | 2024-07-31 11:14 | XMS_ITS | Encounter Summary ---
Author Organization [facility] Address [address] [place] [address] Care Team Providers Care Flooring Machine Feeder Name Role Phone Malcolm Cid MD Primary Care Provider [phone] Malcolm Cid MD Unavailable Wednesday, Alma AQUINON Unavailable [phone] Jayne Del Valle RN Unavailable [phone] Merry Paz DATA COMMUNICATIONS SOFTWARE CONSULTANT Unavailable Unavailable Reason for Visit * Reason Onset Date Comments Med Refill 08/30/2023 Encounter Details Date Type Department Care Team (Late st Contact Info) Description 08/30/2023 Refill [facility] [address] [facility] 110 [place] [id number] Malcolm Cid MD [address] [facility] 110 [place], [place] [id number] Social History Tobacco Use Types Packs/Day Years [...] care, and heating? Not very hard 09/14/2022 [facility] of Occupat ional Health - Occupational Stress [...] as of this encounter Plan of Treatment Upcoming Encounters Date Type Department Care Team (Late st Contact Info) Description 08/07/2024 11:00 AM EDT Office Visit [facility] [address] [facility] 110 [place] [address] Marina Proctor PA [address] [facility] 110 [place] [address] documented as of this encounter Visit Diagnoses Not on filedocumented in this encounter Care Teams Flooring Machine Feeder Relationship Specialty Start Date End Date Malcolm Cid MD [address] [facility] 110 [place] [address] PCP - General Family Medicine 07/29/22 Malcolm Cid MD [address] [facility] [address] [place] [address] PCP - [facility] 05/30/22Wednesday, BREE Marquez [address] [place] [address] Licensed Practical Nurse Family Medicine 06/04/23 Jayne Del Valle, RN Licensed Practical Nurse Family Medicine 04/07/2404/30 Merry Paz LPN 05/19/24 documented as of this encounter
--- OUTSIDE RECORDS SUMMARY | 2024-07-31 11:14 | XMS_ITS | Encounter Summary ---
Author Organization [facility] Address [address] [place] [address] Care Team Providers Care Box Maker Name Role Phone Malcolm Cid MD Primary Care Provider +1- [phone] Source Comments In the event this information is protected by the Federal Confidentiality of Alcohol and Drug AbusePatient Records regulations: The Federal rules restrict any use of the information to criminally investigate or prosecute any alcohol or drug abuse patient.[facility] Encounter Details Date Type Department Care Team (Late st Contact Info) Description 03/10/2019 Patient Msg Rheumatology [address] [place], [place] [id number] [place] [address] [place], [place] [id number] April lab reminder Social History Tobacco Use [...] 10/03/2024 8:00 AM EDT Office Visit Rheumatology [address] [place] [address] [place] [address] [place] [address] Return in about 9 months (around 10/03/2024). documented as of this encounter Visit Diagnoses Not on filedocumented in this encounter Care Teams Box Maker Relationship Specialty Start Date End Date Malcolm Cid MD PCP - General Family Medicine 01/07/15 documented as of this encounter
--- OUTSIDE RECORDS SUMMARY | 2024-07-31 11:14 | XMS_ITS | Encounter Summary ---
Author Organization [facility] Address [address] [place] [address] Care Team Providers Care Triage Assistant Name Role Phone Malcolm Cid MD Primary Care Provider +1- [phone] Source Comments In the event this information is protected by the Federal Confidentiality of Alcohol and Drug AbusePatient Records regulations: The Federal rules restrict any use of the information to criminally investigate or prosecute any alcohol or drug abuse patient.[facility] Encounter Details Date Type Department Care Team (Late st Contact Info) Description 12/27/2018 Patient Msg Rheumatology [address] [place], [place] [id number] Provider, Issa RE: Update from Dr Castro [...] 10/03/2024 8:00 AM EDT Office Visit Rheumatology [address] [place], [place] [phone] [place] [address] [place] [address] Return in about 9 months (around 10/03/2024). documented as of this encounter Visit Diagnoses Not on filedocumented in this encounter Care Teams Triage Assistant Relationship Specialty Start Date End Date Malcolm Cid MD PCP - General Family Medicine 01/07/15 documented as of this encounter
--- OUTSIDE RECORDS SUMMARY | 2024-07-31 11:14 | XMS_ITS | Encounter Summary ---
Author Organization [facility] Address [address] [place] [address] Care Team Providers Care Professional Golf Tournament Player Name Role Phone Malcolm Cid MD Primary Care Provider +1- [phone] Source Comments In the event this information is protected by the Federal Confidentiality of Alcohol and Drug AbusePatient Records regulations: The Federal rules restrict any use of the information to criminally investigate or prosecute any alcohol or drug abuse patient.[facility] Encounter Details Date Type Department Care Team (Late st Contact Info) Description 11/12/2019 Patient Msg Rheumatology [address] [place], [place] [id number] [place] [address] [place], [place] [id number] Lab reminder Social History Tobacco Use Types [...] 10/03/2024 8:00 AM EDT Office Visit Rheumatology [address] [place] [address] [place] [address] [place] [address] Return in about 9 months (around 10/03/2024). documented as of this encounter Visit Diagnoses Not on filedocumented in this encounter Care Teams Professional Golf Tournament Player Relationship Specialty Start Date End Date Malcolm Cid MD PCP - General Family Medicine 01/07/15 documented as of this encounter
--- OUTSIDE RECORDS SUMMARY | 2024-07-31 11:14 | XMS_ITS | Encounter Summary ---
Author Organization [facility] Address [address] [place] [address] Care Team Providers Care Central Supply Nurse Name Role Phone Malcolm Cid MD Primary Care Provider [phone]- [phone] Source Comments In the event this information is protected by the Federal Confidentiality of Alcohol and Drug AbusePatient Records regulations: The Federal rules restrict any use of the information to criminally investigate or prosecute any alcohol or drug abuse patient.[facility] Encounter Details Date Type Department Care Team (Late st Contact Info) Description 04/04/2020 Patient Msg Rheumatology [address] [place], [place] [id number] Provider, Ccf Results Social History Tobacco Use Types Packs/Day Years Used Date Smoking Tobacco: Never Smokeless Tobacco: Current Chew PHQ-2 Answer Date Recorded PHQ-2 score 4 03/31/2020 Area Deprivation Index Answer Date Adis rded National Score (1-100), lower number is lower ri sk Not on file 02/05/2020 State Score (1-10), lower number is lower risk N ot on file 02/05/2020 Data from: https://www.neighborhoodatlas.medicine.[facility].edu/. Last address used for calculation Not [...] 10/03/2024 8:00 AM EDT Office Visit Rheumatology [address] [place] [address] [place] [address] [place], [place] 4906[address] Return in about 9 months (around 10/03/2024). documented as of this encounter Visit Diagnoses Not on filedocumented in this encounter Care Teams Central Supply Nurse Relationship Specialty Start Date End Date Malcolm Cid MD PCP - General Family Medicine 01/07/15 documented as of this encounter
--- OUTSIDE RECORDS SUMMARY | 2024-07-31 11:14 | XMS_ITS | Encounter Summary ---
Author Organization [facility] Address [address] [place] [address] Care Team Providers Care Web Project Manager Name Role Phone Malcolm Cid MD Primary Care Provider [phone] Malcolm Cid MD Unavailable Wednesday, Alma AQUINON Unavailable [phone] Jayne Del Valle RN Unavailable Merry Paz DATA STEWARD Unavailable Unavailable Encounter Details Date Type Department Care Team (Late st Contact Info) Description 07/06/2023 Abstract [facility] 112 [facility] 110 [place] [address] Malcolm Cid MD 112 [facility] 110 [place], [place] [address] Social History Tobacco Use Types Packs/Day Years [...] care, and heating? Not very hard 09/14/2022 [facility] of Occupat ional Health - Occupational Stress [...] 08/07/2024 11:00 AM EDT Office Visit [facility] [address] [facility] 110 [place] [address] Marina Proctor PA [address] [facility] [address] [place] [address] documented as of this encounter Visit Diagnoses Not on filedocumented in this encounter Care Teams Web Project Manager Relationship Specialty Start Date End Date Malcolm Cid MD [address] [facility] [address] [place] [address] PCP - General Family Medicine 07/29/22 Malcolm Cid MD [address] [facility] [address] [place] [address] PCP - [facility] 05/30/22Wednesday, BREE Marquez [address] [place] [address] Licensed Practical Nurse Family Medicine 06/04/23 Jayne Del Valle, DELMIS Licensed Practical Nurse Family Medicine 04/07/2404/30 Merry Paz LPN 05/19/24 documented as of this encounter
--- OUTSIDE RECORDS SUMMARY | 2024-07-31 11:14 | XMS_ITS | Encounter Summary ---
Author Organization [facility] Address [address] [place] [address] Care Team Providers Care Callisthenics Instructor Name Role Phone Malcolm Cid MD Primary Care Provider +1- [phone] Source Comments In the event this information is protected by the Federal Confidentiality of Alcohol and Drug AbusePatient Records regulations: The Federal rules restrict any use of the information to criminally investigate or prosecute any alcohol or drug abuse patient.[facility] Encounter Details Date Type Department Care Team (Late st Contact Info) Description 08/12/2018 Patient Msg Rheumatology [address] [place], [place] [address] Provider, Ccalvarado RE: Reply Social History Tobacco [...] 10/03/2024 8:00 AM EDT Office Visit Rheumatology [address] [place] [address] [place] [address] [place] [address] Return in about 9 months (around 10/03/2024). documented as of this encounter Visit Diagnoses Not on filedocumented in this encounter Care Teams Callisthenics Instructor Relationship Specialty Start Date End Date Malcolm Cid MD PCP - General Family Medicine 01/07/15 documented as of this encounter
--- OUTSIDE RECORDS SUMMARY | 2024-07-31 11:14 | XMS_ITS | Encounter Summary ---
Author Organization [facility] Address [address] [place] [address] Care Team Providers Care Candy Depositing Machine Operator Name Role Phone Malcolm Cid MD Primary Care Provider [phone] Malcolm Cid MD Unavailable Wednesday, Alam AQUINON Unavailable [phone] Jayne Del Valle RN Unavailable Merry Paz FIBER GLASS WORKER Unavailable Unavailable Encounter Details Date Type Department Care Team (Late st Contact Info) Description 07/06/2023 Abstract [facility] 112 [facility] 110 [place] [address] Malcolm Cid MD 112 [facility] 110 [place], [place] [address] Social History Tobacco Use Types Packs/Day Years [...] any clubs o r organizations such as religion groups, unions, fraternal or athletic groups, or [...] care, and heating? Not very hard 09/14/2022 [facility] of Occupat ional Health - [...] 08/07/2024 11:00 AM EDT Office Visit [facility] [address] [facility] 110 [place] [address] Marina Proctor PA [address] [facility] [address] [place] [address] documented as of this encounter Visit Diagnoses Not on filedocumented in this encounter Care Teams Candy Depositing Machine Operator Relationship Specialty Start Date End Date Malcolm Cid MD [address] [facility] [address] [place] [address] PCP - General Family Medicine 07/29/22 Malcolm Cid MD [address] [facility] [address] [place] [address] PCP - [facility] 05/30/22Wednesday, BREE Marquez [address] [place] [address] Licensed Practical Nurse Family Medicine 06/04/23 Jayne Del Valle, DELMIS Licensed Practical Nurse Family Medicine 04/07/2404/30 Merry Paz LPN 05/19/24 documented as of this encounter
--- OUTSIDE RECORDS SUMMARY | 2024-07-31 11:14 | XMS_ITS | Encounter Summary ---
Author Organization [facility] Address [address] [place] [address] Care Team Providers Care Supervisor Motor Vehicle Assembly Name Role Phone Malcolm Cid MD Primary Care Provider +1- [phone] Source Comments In the event this information is protected by the Federal Confidentiality of Alcohol and Drug AbusePatient Records regulations: The Federal rules restrict any use of the information to criminally investigate or prosecute any alcohol or drug abuse patient.[facility] Encounter Details Date Type Department Care Team (Late st Contact Info) Description 03/16/2018 Patient Msg Infectious Disease [address] [place], [place] [id number] Provider, Ccf RE: Dr Castro reply- please [...] 10/03/2024 8:00 AM EDT Office Visit Rheumatology [address] [place] [address] [place] [address] [place] [address] Return in about 9 months (around 10/03/2024). documented as of this encounter Visit Diagnoses Not on filedocumented in this encounter Care Teams Supervisor Motor Vehicle Assembly Relationship Specialty Start Date End Date Malcolm Cid MD PCP - General Family Medicine 01/07/15 documented as of this encounter
--- OUTSIDE RECORDS SUMMARY | 2024-07-31 11:14 | XMS_ITS | Patient Health Record ---
Author Organization [facility] Address [address] [place] [address] Care Team Providers Care Yard Truck Driver Name Role Phone Malcolm Cid MD Primary Care Provider Juan José Casey Unavailable [phone] Reason For Referral No Information Medications Medication [...] Risk Notes Problem Contusion of right knee (13229819526116303) Contusion of right knee, subsequent encounter (S80.01XD) Active confirmed Problem Enthesopathy of knee (66032402) Knee bursitis, right (M70.51) Active confirmed Problem [id number] Acute gout of right knee, 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) Active confirmed Problem Contusion of knee (18033624) Contusion of knee, right (S80.01XA) Inactive confirmed [...] Coverage Start Date Coverage End Date [facility] [place] [address] [place] [address] [id number] TRU SALDIVAR Self - patient is the insured Medical (General) History Medical History History ICD Code Depression High Blood Pressure Anxiety Surgical History Surgery Date(Month/Year) Knee arthroscopy 01/2023 Shoulder surgery, left 03/2021
--- OUTSIDE RECORDS SUMMARY | 2024-07-31 11:14 | XMS_ITS | Encounter Summary ---
Author Organization [facility] Address [address] [place] [address] Care Team Providers Care Economics Professor Name Role Phone Malcolm Cid MD Primary Care Provider [phone] Malcolm Cid MD Unavailable Wednesday, Alma AQUINON Unavailable [phone] Jayne Del Valle RN Unavailable [phone] Merry Paz DIRECTOR INPATIENT HEADACHE PROGRAM Unavailable Unavailable Reason for Visit * Reason Onset Date Comments Med Refill 10/01/2023 Encounter Details Date Type Department Care Team (Late st Contact Info) Description 10/01/2023 Refill [facility] [address] [facility] 110 [place] [address] Marina Proctor, PA [address] [facility] [address] [place] [address] 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 rheumatoid factor ([facility]/HCC) Social History Tobacco Use Types Packs/Day [...] any clubs o r organizations such as sikh groups, unions, fraternal or athletic groups, or [...] care, and heating? Not very hard 09/14/2022 [facility] [place] of Occupat ional Health - Occupational Stress [...] Visit [facility] [address] [facility] 110 [place] [address] Marina Proctor PA [address] [facility] 110 [place] [address] documented as of this encounter Visit Diagnoses Diagnosis 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) documented in this encounter Care Teams Economics Professor Relationship Specialty Start Date End Date Malcolm Cid MD [address] [facility] 110 [place] [address] PCP - General Family Medicine 07/29/22 Malcolm Cid MD [address] [facility] 110 [place] [address] PCP - [facility] 05/30/22Wednesday, BREE Marquez 112 [facility] 110 [place] [address] Licensed Practical Nurse Family Medicine 06/04/23 Jayne Del Valle, RN Licensed Practical Nurse Family Medicine 04/07/2404/30 Merry Paz LPN 05/19/24 documented as of this encounter
--- OUTSIDE RECORDS SUMMARY | 2024-07-31 11:14 | XMS_ITS | Encounter Summary ---
Author Organization [facility] Address [address] [place] [address] Care Team Providers Care Naval Special Warfare Medic Name Role Phone Malcolm Cid MD Primary Care Provider +1- [phone] Source Comments In the event this information is protected by the Federal Confidentiality of Alcohol and Drug AbusePatient Records regulations: The Federal rules restrict any use of the information to criminally investigate or prosecute any alcohol or drug abuse patient.[facility] Encounter Details Date Type Department Care Team (Late st Contact Info) Description 10/28/2018 Patient Msg Rheumatology [address] [place], [place] [address] Provider, Ccf Dr Castro reply Social History [...] 10/03/2024 8:00 AM EDT Office Visit Rheumatology [address] [place] [address] [place] [address] [place] [address] Return in about 9 months (around 10/03/2024). documented as of this encounter Visit Diagnoses Not on filedocumented in this encounter Care Teams Naval Special Warfare Medic Relationship Specialty Start Date End Date Malcolm Cid MD PCP - General Family Medicine 01/07/15 documented as of this encounter
--- OUTSIDE RECORDS SUMMARY | 2024-07-31 11:14 | XMS_ITS | Encounter Summary ---
Author Organization [facility] Address [address] [place] [address] Care Team Providers Care Glass Edger Name Role Phone Malcolm Cid MD Primary Care Provider +1- [phone] Source Comments In the event this information is protected by the Federal Confidentiality of Alcohol and Drug AbusePatient Records regulations: The Federal rules restrict any use of the information to criminally investigate or prosecute any alcohol or drug abuse patient.[facility] Encounter Details Date Type Department Care Team (Late st Contact Info) Description 12/27/2018 Patient Msg Rheumatology [address] [place], [place] [phone] Provider, Ccf reply Social History Tobacco Use [...] 10/03/2024 8:00 AM EDT Office Visit Rheumatology [address] [place] [address] [place] [address] [place] [address] Return in about 9 months (around 10/03/2024). documented as of this encounter Visit Diagnoses Not on filedocumented in this encounter Care Teams Glass Edger Relationship Specialty Start Date End Date Malcolm Cid MD PCP - General Family Medicine 01/07/15 documented as of this encounter
--- OUTSIDE RECORDS SUMMARY | 2024-07-31 11:14 | XMS_ITS | Encounter Summary ---
Author Organization [facility] Address [address] [place] [address] Care Team Providers Care Relationship Executive Name Role Phone Malcolm Cid MD Primary Care Provider +1- [phone] Source Comments In the event this information is protected by the Federal Confidentiality of Alcohol and Drug AbusePatient Records regulations: The Federal rules restrict any use of the information to criminally investigate or prosecute any alcohol or drug abuse patient.[facility] Encounter Details Date Type Department Care Team (Late st Contact Info) Description 08/12/2018 Patient Msg Rheumatology [address] [place], [place] [id number] Provider, Ccf Dr Castro reply to your [...] 10/03/2024 8:00 AM EDT Office Visit Rheumatology [address] [place], [place] [address] [place] [address] [place] [address] Return in about 9 months (around 10/03/2024). documented as of this encounter Visit Diagnoses Not on filedocumented in this encounter Care Teams Relationship Executive Relationship Specialty Start Date End Date Malcolm Cid MD PCP - General Family Medicine 01/07/15 documented as of this encounter
--- OUTSIDE RECORDS SUMMARY | 2024-07-31 11:14 | XMS_ITS ---
Author Organization [facility] Address [address] [place] [address] Care Team Providers Care Public Area Attendant Name Role Phone Malcolm Cid MD Primary Care Provider [phone] Malcolm Cid MD Unavailable Merry Paz LPN [...]
--- OUTSIDE RECORDS SUMMARY | 2024-07-31 11:14 | XMS_ITS | Encounter Summary ---
Author Organization [facility] Address [address] [place] [address] Care Team Providers Care Saw Feeder Name Role Phone Malcolm Cid MD Primary Care Provider +1- [phone] Source Comments In the event this information is protected by the Federal Confidentiality of Alcohol and Drug AbusePatient Records regulations: The Federal rules restrict any use of the information to criminally investigate or prosecute any alcohol or drug abuse patient.[facility] Encounter Details Date Type Department Care Team (Late st Contact Info) Description 01/02/2019 Patient Msg Rheumatology [address] [place] [address] Provider, Ccf Please call our [...] 10/03/2024 8:00 AM EDT Office Visit Rheumatology [address] [place] [address] [place] [address] [place] [address] Return in about 9 months (around 10/03/2024). documented as of this encounter Visit Diagnoses Not on filedocumented in this encounter Care Teams Saw Feeder Relationship Specialty Start Date End Date Malcolm Cid MD PCP - General Family Medicine 01/07/15 documented as of this encounter
--- OUTSIDE RECORDS SUMMARY | 2024-07-31 11:14 | XMS_ITS | Encounter Summary ---
Author Organization [facility] Address [address] [place] [address] Care Team Providers Care Inspection Clerk Name Role Phone Malcolm Cid MD Primary Care Provider [phone] Malcolm Cid MD Unavailable Wednesday, Alma AQUINON Unavailable [phone] Jayne Del Valle RN Unavailable Merry Paz VOICE NETWORK ENGINEER Unavailable Unavailable Encounter Details Date Type Department Care Team (Late st Contact Info) Description 06/25/2023 Abstract [facility] [address] [facility] 110 [place] [id number] Malcolm Cid MD 112 [facility] 110 [place], [place] [id number] Social History Tobacco Use Types Packs/Day Years [...] any clubs o r organizations such as gnosticism groups, unions, fraternal or athletic groups, or [...] 08/07/2024 11:00 AM EDT Office Visit [facility] [address] [facility] 110 [place] [address] Marina Proctor PA [address] [place] [address] documented as of this encounter Visit Diagnoses Not on filedocumented in this encounter Care Teams Inspection Clerk Relationship Specialty Start Date End Date Malcolm Cid MD [address] [place] [address] PCP - General Family Medicine 07/29/22 Malcolm Cid MD [address] [place] [address] PCP - [facility] 05/30/22Wednesday, BREE aMrquez [address] [place] [address] Licensed Practical Nurse Family Medicine 06/04/23 Jayne Del Valle, DELMIS Licensed Practical Nurse Family Medicine 04/07/2404/30 Merry Paz LPN 05/19/24 documented as of this encounter
--- OUTSIDE RECORDS SUMMARY | 2024-07-31 11:14 | XMS_ITS | Encounter Summary ---
Author Organization [facility] Address [address] [place] [address] Care Team Providers Care Cyber Security Instructor Name Role Phone Malcolm Cid MD Primary Care Provider [phone] Source Comments In the event this information is protected by the Federal Confidentiality of Alcohol and Drug AbusePatient Records regulations: The Federal rules restrict any use of the information to criminally investigate or prosecute any alcohol or drug abuse patient.[facility] Encounter Details Date Type Department Care Team (Late st Contact Info) Description 07/29/2018 Patient Msg Rheumatology [address] [place], [place] [id number] [place] [address] [place], [place] [id number] September lab reminder Social History Tobacco Use [...] 10/03/2024 8:00 AM EDT Office Visit Rheumatology [address] [place] [address] [place] [address] [place] [address] Return in about 9 months (around 10/03/2024). documented as of this encounter Visit Diagnoses Not on filedocumented in this encounter Care Teams Cyber Security Instructor Relationship Specialty Start Date End Date Malcolm Cid MD PCP - General Family Medicine 01/07/15 documented as of this encounter
--- OUTSIDE RECORDS SUMMARY | 2024-07-31 11:14 | XMS_ITS | Encounter Summary ---
Author Organization [facility] Address [address] [place] [address] Care Team Providers Care Scrum Coach Name Role Phone Malcolm Cid MD Primary Care Provider [phone] Malcolm Cid MD Unavailable Wednesday, Alma AQIUNON Unavailable [phone] Jayne Del Valle RN Unavailable [phone] Merry Paz COATER ASSOCIATE Unavailable Unavailable Reason for Visit * Reason Onset Date Comments Med Refill 09/20/2023 Encounter Details Date Type Department Care Team (Late st Contact Info) Description 09/20/2023 Refill [facility] [address] [facility] 110 [place] [address] Marina Proctor, PA [address] [place] [address] 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 [...] care, and heating? Not very hard 09/14/2022 [facility] of Occupat ional Health - Occupational Stress [...] 08/07/2024 11:00 AM EDT Office Visit [facility] [address] [facility] 110 [place] [address] Marina Proctor PA [address] [place] [address] documented as of this encounter Visit Diagnoses Diagnosis 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 rheumatoid factor ([facility]) documented in this encounter Care Teams Scrum Coach Relationship Specialty Start Date End Date Malcolm Cid MD [address] [place] [address] PCP - General Family Medicine 07/29/22 Malcolm Cid MD [address] [place] [address] PCP - [facility] 05/30/22Wednesday, BREE Marquez [address] [place] [address] Licensed Practical Nurse Family Medicine 06/04/23 Jayne Del Valle, RN Licensed Practical Nurse Family Medicine 04/07/2404/30 Merry Paz LPN 05/19/24 documented as of this encounter
--- OUTSIDE RECORDS SUMMARY | 2024-07-31 11:14 | XMS_ITS | Encounter Summary ---
Author Organization [facility] Address [address] [place] [address] Care Team Providers Care Process Description Writer Name Role Phone Malcolm Cid MD Primary Care Provider [phone] Source Comments In the event this information is protected by the Federal Confidentiality of Alcohol and Drug AbusePatient Records regulations: The Federal rules restrict any use of the information to criminally investigate or prosecute any alcohol or drug abuse patient.[facility] Encounter Details Date Type Department Care Team (Late st Contact Info) Description 01/24/2019 Patient Msg Rheumatology [address] [place] [address] Provider, Ccf Message from Dr [...] 10/03/2024 8:00 AM EDT Office Visit Rheumatology [address] [place] [address] [place] [address] [place] [address] Return in about 9 months (around 10/03/2024). documented as of this encounter Visit Diagnoses Not on filedocumented in this encounter Care Teams Process Description Writer Relationship Specialty Start Date End Date Malcolm Cid MD PCP - General Family Medicine 01/07/15 documented as of this encounter
--- OUTSIDE RECORDS SUMMARY | 2024-07-31 11:14 | XMS_ITS | Encounter Summary ---
Author Organization [facility] Address [address] [place] [place] [address] Care Team Providers Care Armature Winder Repair Helper Name Role Phone Malcolm Cid MD Primary Care Provider [phone] Malcolm Cid MD Unavailable Wednesday, Alma AQUINON Unavailable [phone] Jayne Del Valle RN Unavailable Merry Paz CHEMICAL MANAGER Unavailable Unavailable Encounter Details Date Type Department Care Team (Late st Contact Info) Description 02/23/2023 Abstract [facility] [address] [facility] 110 [place] [phone] Malcolm Cid MD 112 [facility] 110 [place], [place] [id number] Social History Tobacco Use Types Packs/Day Years [...] 08/07/2024 11:00 AM EDT Office Visit [facility] [address] [facility] 110 [place] [address] Marina Proctor PA [address] [facility] 110 [place] [address] documented as of this encounter Visit Diagnoses Not on filedocumented in this encounter Care Teams Armature Winder Repair Helper Relationship Specialty Start Date End Date Malcolm Cid MD [address] [facility] [address] [place] [address] PCP - General Family Medicine 07/29/22 Malcolm Cid MD [address] [place] [address] PCP - [facility] 05/30/22Wednesday, BREE Marquez [address] [place] [address] Licensed Practical Nurse Family Medicine 06/04/23 Jayne Del Valle, DELMIS Licensed Practical Nurse Family Medicine 04/07/2404/30 Merry Paz LPN 05/19/24 documented as of this encounter
--- OUTSIDE RECORDS SUMMARY | 2024-07-31 11:14 | XMS_ITS | Encounter Summary ---
Author Organization [facility] Address [address] [place] [address] Care Team Providers Care Lineman A Class Name Role Phone Malcolm Cid MD Primary Care Provider [phone] Source Comments In the event this information is protected by the Federal Confidentiality of Alcohol and Drug AbusePatient Records regulations: The Federal rules restrict any use of the information to criminally investigate or prosecute any alcohol or drug abuse patient.[facility] Encounter Details Date Type Department Care Team (Late st Contact Info) Description 08/10/2018 Patient Msg Rheumatology [address] [place], [place] [address] Provider, Ccf RE: Please reply back Social [...] 10/03/2024 8:00 AM EDT Office Visit Rheumatology [address] [place] [address] [place] [address] [place] [address] Return in about 9 months (around 10/03/2024). documented as of this encounter Visit Diagnoses Not on filedocumented in this encounter Care Teams Lineman A Class Relationship Specialty Start Date End Date Malcolm Cid MD PCP - General Family Medicine 01/07/15 documented as of this encounter
--- OUTSIDE RECORDS SUMMARY | 2024-07-31 11:14 | XMS_ITS | Encounter Summary ---
Author Organization [facility] Address [address] [place] [address] Care Team Providers Care Scrap Piler Name Role Phone Malcolm Cid MD Primary Care Provider [phone] Source Comments In the event this information is protected by the Federal Confidentiality of Alcohol and Drug AbusePatient Records regulations: The Federal rules restrict any use of the information to criminally investigate or prosecute any alcohol or drug abuse patient.[facility] Encounter Details Date Type Department Care Team (Late st Contact Info) Description 12/28/2018 Patient Msg Rheumatology [address] [place] [address] Provider, Ccf Update on insurance [...] 10/03/2024 8:00 AM EDT Office Visit Rheumatology [address] [place] [address] [place] [address] [place] [address] Return in about 9 months (around 10/03/2024). documented as of this encounter Visit Diagnoses Not on filedocumented in this encounter Care Teams Scrap Piler Relationship Specialty Start Date End Date Malcolm Cid MD PCP - General Family Medicine 01/07/15 documented as of this encounter
--- OUTSIDE RECORDS SUMMARY | 2024-07-31 11:14 | XMS_ITS | Encounter Summary ---
Author Organization [facility] Address [address] [place] [address] Care Team Providers Care Photocomposing Keyboard Operator Name Role Phone Malcolm Cid MD Primary Care Provider [phone]- [phone] Source Comments In the event this information is protected by the Federal Confidentiality of Alcohol and Drug AbusePatient Records regulations: The Federal rules restrict any use of the information to criminally investigate or prosecute any alcohol or drug abuse patient.[facility] Encounter Details Date Type Department Care Team (Late st Contact Info) Description 05/09/2020 Patient Msg Rheumatology [address] [place], [place] [id number] Provider, Ccf Results Social History Tobacco Use Types Packs/Day Years Used Date Smoking Tobacco: Never Smokeless Tobacco: Current Chew PHQ-2 Answer Date Recorded PHQ-2 score 4 03/31/2020 Area Deprivation Index Answer Date Adis rded National Score (1-100), lower number is lower ri sk Not on file 02/05/2020 State Score (1-10), lower number is lower risk N ot on file 02/05/2020 Data from: https://www.neighborhoodatlas.medicine.[facility].edu/. Last address used for calculation Not [...] 10/03/2024 8:00 AM EDT Office Visit Rheumatology [address] [place] [address] [place] [address] [place] [address] Return in about 9 months (around 10/03/2024). documented as of this encounter Visit Diagnoses Not on filedocumented in this encounter Care Teams Photocomposing Keyboard Operator Relationship Specialty Start Date End Date Malcolm Cid MD PCP - General Family Medicine 01/07/15 documented as of this encounter
--- OUTSIDE RECORDS SUMMARY | 2024-07-31 11:14 | XMS_ITS | Encounter Summary ---
Author Organization [facility] Address [address] [place] [address] Care Team Providers Care Insulation Cutter And Former Name Role Phone Malcolm Cid MD Primary Care Provider [phone] Malcolm Cid MD Unavailable Wednesday, Alma AQUINON Unavailable [phone] Jayne Del Valle RN Unavailable Merry Paz PARTY PLAN SALES DIRECTOR Unavailable Unavailable Reason for Visit * Reason Onset Date Comments Med Refill 09/15/2023 Encounter Details Date Type Department Care Team (Late st Contact Info) Description 09/15/2023 Refill [facility] [address] [facility] 110 [place] [address] Malcolm Cid MD [address] [place], [place] [id number] 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 rheumatoid factor ([facility]) Social History Tobacco Use Types Packs/Day Years [...] any clubs o r organizations such as episcopalian groups, unions, fraternal or athletic groups, or [...] care, and heating? Not very hard 09/14/2022 [facility] of Occupat ional Health - Occupational Stress [...] CI FM [address] [place] [address] Marina Proctor, PA [address] [place] [address] documented as of this encounter Visit Diagnoses Diagnosis 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 rheumatoid factor ([facility]) documented in this encounter Care Teams Insulation Cutter And Former Relationship Specialty Start Date End Date Malcolm Cid MD [address] [place] [address] PCP - General Family Medicine 07/29/22 Malcolm Cid MD [address] [place] [address] PCP - [facility] 05/30/22Wednesday, BREE Marquez [address] [place] [address] Licensed Practical Nurse Family Medicine 06/04/23 Jayne Del Valle, RN Licensed Practical Nurse Family Medicine 04/07/2404/30 Merry Paz LPN 05/19/24 documented as of this encounter
--- OUTSIDE RECORDS SUMMARY | 2024-07-31 11:14 | XMS_ITS | Encounter Summary ---
Author Organization [facility] Address [address] [place] [address] Care Team Providers Care Rubber Heel And Sole Press Tender Name Role Phone Malcolm Cid MD Primary Care Provider [phone] Source Comments In the event this information is protected by the Federal Confidentiality of Alcohol and Drug AbusePatient Records regulations: The Federal rules restrict any use of the information to criminally investigate or prosecute any alcohol or drug abuse patient.[facility] Encounter Details Date Type Department Care Team (Late st Contact Info) Description 10/28/2018 Patient Msg Rheumatology [address] [place], [place] [phone] Provider, Ccf Dr Castro message Social History [...] 04/26/2017 6:15 PM Oralia Hutrado RN * Do you have difficulty dressing [...] 10/03/2024 8:00 AM EDT Office Visit Rheumatology [address] [place] [address] [place] [address] [place] [address] Return in about 9 months (around 10/03/2024). documented as of this encounter Visit Diagnoses Not on filedocumented in this encounter Care Teams Rubber Heel And Sole Press Tender Relationship Specialty Start Date End Date Malcolm Cid MD PCP - General Family Medicine 01/07/15 documented as of this encounter
--- OUTSIDE RECORDS SUMMARY | 2024-07-31 11:14 | XMS_ITS | Encounter Summary ---
Author Organization [facility] Address [address] [place] [address] Care Team Providers Care Electrical Controls Engineer Name Role Phone Malcolm Cid MD Primary Care Provider [phone] Source Comments In the event this information is protected by the Federal Confidentiality of Alcohol and Drug AbusePatient Records regulations: The Federal rules restrict any use of the information to criminally investigate or prosecute any alcohol or drug abuse patient.[facility] Encounter Details Date Type Department Care Team (Late st Contact Info) Description 11/25/2018 Patient Msg Rheumatology [address] [place], [place] [id number] [place] [address] [place], [place] [id number] December lab reminder Social History Tobacco Use [...] 10/03/2024 8:00 AM EDT Office Visit Rheumatology [address] [place] [address] [place] [address] [place] [address] Return in about 9 months (around 10/03/2024). documented as of this encounter Visit Diagnoses Not on filedocumented in this encounter Care Teams Electrical Controls Engineer Relationship Specialty Start Date End Date Malcolm Cid MD PCP - General Family Medicine 01/07/15 documented as of this encounter
--- OUTSIDE RECORDS SUMMARY | 2024-07-31 11:14 | XMS_ITS | Encounter Summary ---
Author Organization [facility] Address [address] [place] [address] Care Team Providers Care Grain I Farmworker Name Role Phone Malcolm Cid MD Primary Care Provider [phone]- [phone] Source Comments In the event this information is protected by the Federal Confidentiality of Alcohol and Drug AbusePatient Records regulations: The Federal rules restrict any use of the information to criminally investigate or prosecute any alcohol or drug abuse patient.[facility] Encounter Details Date Type Department Care Team (Late st Contact Info) Description 04/22/2018 Patient Msg Rheumatology [address] [place], [place] [phone] [place] [address] [place], [place] [phone] Previsit lab reminder Social History Tobacco Use [...] 10/03/2024 8:00 AM EDT Office Visit Rheumatology [address] [place] [address] [place] [address] [place] [address] Return in about 9 months (around 10/03/2024). documented as of this encounter Visit Diagnoses Not on filedocumented in this encounter Care Teams Grain I Farmworker Relationship Specialty Start Date End Date Malcolm Cid MD PCP - General Family Medicine 01/07/15 documented as of this encounter
--- OUTSIDE RECORDS SUMMARY | 2024-07-31 11:14 | XMS_ITS | Encounter Summary ---
Author Organization [facility] Address [address] [place] [address] Care Team Providers Care Director Of Strategic Communications Name Role Phone Malcolm Cid MD Primary Care Provider [phone]- [phone] Source Comments In the event this information is protected by the Federal Confidentiality of Alcohol and Drug AbusePatient Records regulations: The Federal rules restrict any use of the information to criminally investigate or prosecute any alcohol or drug abuse patient.[facility] Encounter Details Date Type Department Care Team (Late st Contact Info) Description 08/03/2018 Patient Msg Infectious Disease [address] [place], [place] [id number] Provider, Ccf RE: Dr Castro office- Message. [...] 10/03/2024 8:00 AM EDT Office Visit Rheumatology [address] [place] [address] [place] [address] [place] [address] Return in about 9 months (around 10/03/2024). documented as of this encounter Visit Diagnoses Not on filedocumented in this encounter Care Teams Director Of Strategic Communications Relationship Specialty Start Date End Date Malcolm Cid MD PCP - General Family Medicine 01/07/15 documented as of this encounter
--- OUTSIDE RECORDS SUMMARY | 2024-07-31 11:14 | XMS_ITS | Encounter Summary ---
Author Organization [facility] Address [address] [place] [address] Care Team Providers Care Sitecore Developer Name Role Phone Malcolm Cid MD Primary Care Provider [phone] Malcolm Cid MD Unavailable Wednesday, Alma AQUINON Unavailable [phone] Jayne Del Valle RN Unavailable Merry Paz SUEDING AND BUFFING MACHINE OPERATOR Unavailable Unavailable Reason for Visit * Reason Onset Date Comments Med Refill 08/23/2023 Encounter Details Date Type Department Care Team (Late st Contact Info) Description 08/23/2023 Refill [facility] [address] [facility] 110 [place] [id number] Malcolm Cid MD [address] [place], [place] [address] 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 [...] any clubs o r organizations such as judaism groups, unions, fraternal [...] care, and heating? Not very hard 09/14/2022 [facility] [place] of Occupat ional Health - Occupational Stress [...] Visit [facility] [address] [facility] 110 [place] [address] Marina Proctor PA [address] [facility] 110 [place] [address] documented as of this encounter Visit Diagnoses Diagnosis 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) documented in this encounter Care Teams Sitecore Developer Relationship Specialty Start Date End Date Malcolm Cid MD [address] [facility] 110 [place] [address] PCP - General Family Medicine 07/29/22 Malcolm Cid MD [address] [facility] 110 [place] [address] PCP - [facility] 05/30/22Wednesday, BREE Marquez 112 [facility] 110 [place] [address] Licensed Practical Nurse Family Medicine 06/04/23 Jayne Del Valle, RN Licensed Practical Nurse Family Medicine 04/07/2404/30 Merry Paz LPN 05/19/24 documented as of this encounter
--- OUTSIDE RECORDS SUMMARY | 2024-07-31 11:14 | XMS_ITS | Encounter Summary ---
Author Organization [facility] Address [address] [place] [address] Care Team Providers Care Clicker Operator Name Role Phone Malcolm Cid MD Primary Care Provider [phone] Malcolm Cid MD Unavailable Wednesday, Alma AQUINON Unavailable [phone] Jayne Del Valle RN Unavailable [phone] Merry Paz ANIMAL STUNNER Unavailable Unavailable Encounter Details Date Type Department Care Team (Late st Contact Info) Description 08/23/2023 Abstract [facility] [address] [facility] 110 [place] [address] Malcolm Cid MD 112 [facility] 110 [place], [place] [id number] Social History Tobacco Use Types Packs/Day Years [...] How often do you attend chur or latter-day services? More than 4 times per year [...] heating? Not very hard 09/14/2022 [facility] of Occupat ional Health - [...] 08/07/2024 11:00 AM EDT Office Visit [facility] [address] [facility] 110 [place] [address] Marina Proctor PA [address] [place] [address] documented as of this encounter Visit Diagnoses Not on filedocumented in this encounter Care Teams Clicker Operator Relationship Specialty Start Date End Date Malcolm Cid MD [address] [place] [address] PCP - General Family Medicine 07/29/22 Malcolm Cid MD [address] [place] [address] PCP - [facility] 05/30/22Wednesday, BREE Marquez [address] [place] [address] Licensed Practical Nurse Family Medicine 06/04/23 Jayne Del Valle, DELMIS Licensed Practical Nurse Family Medicine 04/07/2404/30 Merry Paz LPN 05/19/24 documented as of this encounter
--- OUTSIDE RECORDS SUMMARY | 2024-07-31 11:14 | XMS_ITS | Encounter Summary ---
Author Organization [facility] Address [address] [place] [address] Care Team Providers Care Road Contractor Name Role Phone Malcolm Cid MD Primary Care Provider [phone] Malcolm Cid MD Unavailable Wednesday, Alma AQUINON Unavailable [phone] Jayne Del Valle RN Unavailable Merry Paz WASTEWATER TREATMENT SUPERVISOR Unavailable Unavailable Encounter Details Date Type Department Care Team (Late st Contact Info) Description 09/06/2023 Abstract [facility] [address] [facility] 110 [place] [id number] Malcolm Cid MD 112 [facility] 110 [place], [place] [id number] Social History Tobacco Use Types Packs/Day Years [...] 08/07/2024 11:00 AM EDT Office Visit [facility] [address] [facility] 110 [place] [address] Marina Proctor PA [address] [place] [address] documented as of this encounter Visit Diagnoses Not on filedocumented in this encounter Care Teams Road Contractor Relationship Specialty Start Date End Date Malcolm Cid MD [address] [place] [address] PCP - General Family Medicine 07/29/22 Malcolm Cid MD [address] [place] [address] PCP - [facility] 05/30/22Wednesday, BREE Marquez [address] [place] [address] Licensed Practical Nurse Family Medicine 06/04/23 Jayne Del Valle, DELMIS Licensed Practical Nurse Family Medicine 04/07/2404/30 Merry Paz LPN 05/19/24 documented as of this encounter
--- OUTSIDE RECORDS SUMMARY | 2024-07-31 11:14 | XMS_ITS | Clinical Summary ---
Author Organization [facility] Address [address] [place] [address] Care Team Providers Care Nursing Informatics Specialist Name Role Phone Malcolm Cid MD Primary Care Provider [phone] Allergies No known active allergies Medications gabapentin [...] patient's age to complete this topic Insurance [facility] Sub[facility] Plan / Payer (Ef fective 2018-Present) Name:Kam Wrayn Relation to Subscriber:Self Name:Nick Wray Payer ID:Not on file Type:Not on file Address: [address] [employer] Advance Directives * Full Code (Latest Code Status on File) Date Activated Date Inactivated Comments 04/26/2015 11:58 PM 04/28/2015 7:53 PM * Full Code Date Activated Date Inactivated Comments 02/24/2015 8:57 PM 02/28/2015 4:48 PM Care Teams Nursing Informatics Specialist Relationship Specialty Start Date End Date Malcolm Cid MD PCP - General 02/24/15
--- OUTSIDE RECORDS SUMMARY | 2024-07-31 11:15 | XMS_ITS | Encounter Summary ---
Author Organization [facility] Address [address] [place] [address] Care Team Providers Care Pipe Bowl Paint Trimmer Name Role Phone Malcolm Cid MD Primary Care Provider [phone] Malcolm Cid MD Unavailable Wednesday, Alma AQUINON Unavailable [phone] Jayne Del Valle RN Unavailable Merry Paz PLUG PASTER Unavailable Unavailable Encounter Details Date Type Department Care Team (Late st Contact Info) Description 03/09/2023 Abstract [facility] [address] [facility] 110 [place] [id number] Malcolm Cid MD 112 [facility] 110 [place], [place] [id number] Social History Tobacco Use Types Packs/Day Years [...] any clubs o r organizations such as hoahaoism groups, unions, fraternal or athletic groups, or [...] care, and heating? Not very hard 09/14/2022 [facility] - Occupational [...] 08/07/2024 11:00 AM EDT Office Visit [facility] [address] [facility] 110 [place] [address] Marina Proctor PA [address] [facility] 110 [place] [address] documented as of this encounter Visit Diagnoses Not on filedocumented in this encounter Care Teams Pipe Bowl Paint Trimmer Relationship Specialty Start Date End Date Malcolm Cid MD [address] [facility] 110 [place] [address] PCP - General Family Medicine 07/29/22 Malcolm Cid MD [address] [place] [address] PCP - [facility] 05/30/22Wednesday, BREE Marquez [address] [place] [address] Licensed Practical Nurse Family Medicine 06/04/23 Jayne Del Valle, DELMIS Licensed Practical Nurse Family Medicine 04/07/2404/30 Merry Paz LPN 05/19/24 documented as of this encounter
--- OUTSIDE RECORDS SUMMARY | 2024-07-31 11:15 | XMS_ITS | Encounter Summary ---
Author Organization [facility] Address [address] [place] [address] Care Team Providers Care Shop Mechanic Name Role Phone Malcolm Cid MD Primary Care Provider [phone] Malcolm Cid MD Unavailable Wednesday, Alma AQUINON Unavailable [phone] Jayne Del Valle RN Unavailable [phone] Merry Paz FLOOR DIRECTOR Unavailable Unavailable Encounter Details Date Type Department Care Team (Late st Contact Info) Description 06/15/2023 Abstract [facility] [address] [facility] 110 [place] [phone] Malcolm Cid MD 112 [facility] 110 [place], [place] [address] Social History Tobacco Use Types Packs/Day Years [...] How often do you attend chur or holiness services? More than 4 times per year [...] 08/07/2024 11:00 AM EDT Office Visit [facility] [address] [facility] 110 [place] [address] Marina Proctor PA [address] [place] [address] documented as of this encounter Visit Diagnoses Not on filedocumented in this encounter Care Teams Shop Mechanic Relationship Specialty Start Date End Date Malcolm Cid MD [address] [place] [address] PCP - General Family Medicine 07/29/22 Malcolm Cid MD [address] [place] [address] PCP - [facility] 05/30/22Wednesday, BREE Marquez [address] [place] [address] Licensed Practical Nurse Family Medicine 06/04/23 Jayne Del Valle, DELMIS Licensed Practical Nurse Family Medicine 04/07/2404/30 Merry Paz LPN 05/19/24 documented as of this encounter
--- OUTSIDE RECORDS SUMMARY | 2024-07-31 11:15 | XMS_ITS | Encounter Summary ---
Author Organization [facility] Address [address] [place] [address] Care Team Providers Care Shoe Shiner Name Role Phone Malcolm Cid MD Primary Care Provider [phone] Malcolm Cid MD Unavailable Wednesday, Alma AQUINON Unavailable [phone] Jayne Del Valle RN Unavailable [phone] Merry Paz LPN Unavailable Unavailable Encounter Details Date Type Department Care Team (Late st Contact Info) Description 05/10/2023 Orders Only [facility] [address] [place] [address] A, Unknown Practice [address] [place] [address] Social History Tobacco Use Types Packs/Day Years [...] How often do you attend chur or christian services? More than 4 times per year 09/14/2022 Do you belong to any clubs o r organizations such as latter day groups, unions, fraternal or athletic groups, or [...] care, and heating? Not very hard 09/14/2022 [facility] - Occupational [...] 08/07/2024 11:00 AM EDT Office Visit [facility] [address] [facility] 110 [place] [address] Marina Proctor PA [address] [facility] 110 [place] [address] documented as of this encounter Procedures Procedure Name Priority Date/Time Associated Diagnosis Comments ELECTROCARDIOGRAM REPORT Routine 024 1:03 PM EST documented in this encounter Results * Electrocardiogram Report (05/08/2023 1:03 PM EST) us Unknown Practice A IN CLINIC/BEDSIDE ORDERABLES Final Result documented in this encounter Visit Diagnoses Not on filedocumented in this encounter Care Teams Shoe Shiner Relationship Specialty Start Date End Date Malcolm Cid MD [address] [place] [address] PCP - General Family Medicine 07/29/22 Malcolm Cid MD [address] [place] [address] PCP - [facility] 05/30/22WednesdayAlma LPN [address] [place] [address] Licensed Practical Nurse Family Medicine 06/04/23 Jayne Del Valle, RN Licensed Practical Nurse Family Medicine 04/07/2404/30 Merry Paz LPN 05/19/24 documented as of this encounter
--- OUTSIDE RECORDS SUMMARY | 2024-07-31 11:15 | XMS_ITS | Encounter Summary ---
Author Organization [facility] Address [facility] [place] [address] Care Team Providers Care Hop Weigher Name Role Phone Malcolm Cid MD Primary Care Provider [phone] Source Comments In the event this information is protected by the Federal Confidentiality of Alcohol and Drug AbusePatient Records regulations: The Federal rules restrict any use of the information to criminally investigate or prosecute any alcohol or drug abuse patient.[facility] Encounter Details Date Type Department Care Team (Late st Contact Info) Description 12/25/2020 Get Medical Advice Kidney Medicine [address] [place], [place] [id number] Madonna Serrano, PACKAGING SUPERVISOR.FOREST ECONOMICS PROFESSOR [address] [place] [address] RE: Visit Follow Up Question [...] N ot on file 02/05/2020 Data from: https://www.neighborhoodatlas.[facility]/. Last address used for calculation Not [...] 10/03/2024 8:00 AM EDT Office Visit Rheumatology [address] [place], [place] [address] [place] [address] [place], [place] [address] Return in about 9 months (around 10/03/2024). documented as of this encounter Visit Diagnoses Not on filedocumented in this encounter Care Teams Hop Weigher Relationship Specialty Start Date End Date Malcolm Cid MD PCP - General Family Medicine 01/07/15 documented as of this encounter
--- OUTSIDE RECORDS SUMMARY | 2024-07-31 11:15 | XMS_ITS | Encounter Summary ---
Author Organization [facility] Address [address] [place] [address] Care Team Providers Care Business Office Representative Name Role Phone Malcolm Cid MD Primary Care Provider [phone] Malcolm Cid MD Unavailable Wednesday, Alma AQUINON Unavailable [phone] Jayne Del Valle RN Unavailable Merry Paz DESIGN PRINTER BALLOON Unavailable Unavailable Encounter Details Date Type Department Care Team (Late st Contact Info) Description 03/08/2023 Abstract [facility] [address] [facility] 110 [place] [address] Malcolm Cid MD 112 [facility] 110 [place], [place] [address] Social History Tobacco Use Types Packs/Day Years [...] care, and heating? Not very hard 09/14/2022 [facility] Occupat ional Health - Occupational [...] 08/07/2024 11:00 AM EDT Office Visit [facility] [address] [facility] 110 [place] [address] Marina Proctor PA [address] [facility] 110 [place] [address] documented as of this encounter Visit Diagnoses Not on filedocumented in this encounter Care Teams Business Office Representative Relationship Specialty Start Date End Date Malcolm Cid MD [address] [facility] [address] [place] [address] PCP - General Family Medicine 07/29/22 Malcolm Cid MD [address] [place] [address] PCP - [facility] 05/30/22Wednesday, BREE Marquez [address] [place] [address] Licensed Practical Nurse Family Medicine 06/04/23 Jayne Del Valle, DELMIS Licensed Practical Nurse Family Medicine 04/07/2404/30 Merry Paz LPN 05/19/24 documented as of this encounter
--- OUTSIDE RECORDS SUMMARY | 2024-07-31 11:15 | XMS_ITS | Encounter Summary ---
Author Organization [facility] Address [address] [place] [address] Care Team Providers Care Dumper Bulk System Name Role Phone Malcolm Cid MD Primary Care Provider [phone] Source Comments In the event this information is protected by the Federal Confidentiality of Alcohol and Drug AbusePatient Records regulations: The Federal rules restrict any use of the information to criminally investigate or prosecute any alcohol or drug abuse patient.[facility] Encounter Details Date Type Department Care Team (Late st Contact Info) Description 03/08/2023 Patient Msg Rheumatology [address] [place], [place] [address] [place] [address] [place], [place] [id number] Previsit lab reminder Social History Tobacco Use Types Packs/Day Years Used Date Smoking Tobacco: Never Smokeless Tobacco: Current Chew PHQ-2 Answer Date Recorded PHQ-2 score 4 08/13/2022 Area Deprivation Index Answer Date Adis rded National Score (1-100), lower number is lower ri sk 87 08/14/2022 State Score (1-10), lower number is lower risk 8 08/14/2022 Data from: https://www.neighborhoodatlas.[facility]/. Last address used for calculation Thong SALDAÑA [...] 10/03/2024 8:00 AM EDT Office Visit Rheumatology [address] [place], [place] [address] [place] [address] [place], [place] [address] Return in about 9 months (around 10/03/2024). documented as of this encounter Visit Diagnoses Not on filedocumented in this encounter Care Teams Dumper Bulk System Relationship Specialty Start Date End Date Malcolm Cid MD PCP - General Family Medicine 01/07/15 documented as of this encounter
--- OUTSIDE RECORDS SUMMARY | 2024-07-31 11:15 | XMS_ITS | Encounter Summary ---
Author Organization [facility] Address [address] [place] [address] Care Team Providers Care Pulp Tester Name Role Phone Malcolm Cid MD Primary Care Provider [phone] Source Comments In the event this information is protected by the Federal Confidentiality of Alcohol and Drug AbusePatient Records regulations: The Federal rules restrict any use of the information to criminally investigate or prosecute any alcohol or drug abuse patient.[facility] Encounter Details Date Type Department Care Team (Late st Contact Info) Description 10/12/2022 Patient Msg Rheumatology [address] [place], [place] [address] Provider, Ccf Appoinment Cancellation Social History Tobacco Use Types Packs/Day Years Used Date Smoking Tobacco: Never Smokeless Tobacco: Current Chew PHQ-2 Answer Date Recorded PHQ-2 score 4 08/13/2022 Area Deprivation Index Answer Date Adis rded National Score (1-100), lower number is lower ri sk 87 08/14/2022 State Score (1-10), lower number is lower risk 8 08/14/2022 Data from: https://www.neighborhoodatlas.medicine.[facility].edu/. Last address used for calculation [address] [facility] 08/14/2022 Sex and Gender Information Value [...] 10/03/2024 8:00 AM EDT Office Visit Rheumatology [address] [place] [address] [place] [address] [place] [address] Return in about 9 months (around 10/03/2024). documented as of this encounter Visit Diagnoses Not on filedocumented in this encounter Care Teams Pulp Tester Relationship Specialty Start Date End Date Malclom Cid MD PCP - General Family Medicine 01/07/15 documented as of this encounter
--- OUTSIDE RECORDS SUMMARY | 2024-07-31 11:15 | XMS_ITS | Encounter Summary ---
Author Organization [facility] Address [address] [place] [address] Care Team Providers Care Straightening Press Operator Helper Name Role Phone Malcolm Cid MD Primary Care Provider [phone] Source Comments In the event this information is protected by the Federal Confidentiality of Alcohol and Drug AbusePatient Records regulations: The Federal rules restrict any use of the information to criminally investigate or prosecute any alcohol or drug abuse patient.[facility] Encounter Details Date Type Department Care Team (Late st Contact Info) Description 12/02/2020 Patient Msg Rheumatology [address] [place], [place] [address] [place] [address] [place] [address] Previsit lab reminder Social History Tobacco Use Types Packs/Day Years Used Date Smoking Tobacco: Never Smokeless Tobacco: Current Chew PHQ-2 Answer Date Recorded PHQ-2 score 3 08/19/2020 Area Deprivation Index Answer Date Adis rded National Score (1-100), lower number is lower ri sk Not on file 02/05/2020 State Score (1-10), lower number is lower risk N ot on file 02/05/2020 Data from: https://www.neighborhoodatlas.[facility]/. Last address used for calculation Not [...] 10/03/2024 8:00 AM EDT Office Visit Rheumatology [address] [place] [address] [place] [address] [place], [place] [address] Return in about 9 months (around 10/03/2024). documented as of this encounter Visit Diagnoses Not on filedocumented in this encounter Care Teams Straightening Press Operator Helper Relationship Specialty Start Date End Date Malcolm Cid MD PCP - General Family Medicine 01/07/15 documented as of this encounter
--- OUTSIDE RECORDS SUMMARY | 2024-07-31 11:15 | XMS_ITS | Encounter Summary ---
Author Organization [facility] Address [address] [place] [address] Care Team Providers Care Elephant Tamer Name Role Phone Malcolm Cid MD Primary Care Provider [phone] Source Comments In the event this information is protected by the Federal Confidentiality of Alcohol and Drug AbusePatient Records regulations: The Federal rules restrict any use of the information to criminally investigate or prosecute any alcohol or drug abuse patient.[facility] Encounter Details Date Type Department Care Team (Late st Contact Info) Description 06/18/2020 Patient Msg Kidney Medicine [address] [place], [place] [phone] Marito Velasquez MD [address] [place] [address] results Social History Tobacco Use Types Packs/Day Years Used Date Smoking Tobacco: Never Smokeless Tobacco: Current Chew PHQ-2 Answer Date Recorded PHQ-2 score 4 03/31/2020 Area Deprivation Index Answer Date Adis rded National Score (1-100), lower number is lower ri sk Not on file 02/05/2020 State Score (1-10), lower number is lower risk N ot on file 02/05/2020 Data from: https://www.neighborhoodatlas.medicine.[facility]/. Last address used for calculation Not [...] 10/03/2024 8:00 AM EDT Office Visit Rheumatology [address] [place], [place] [address] [place] [address] [place], [place] [address] Return in about 9 months (around 10/03/2024). documented as of this encounter Visit Diagnoses Not on filedocumented in this encounter Care Teams Elephant Tamer Relationship Specialty Start Date End Date Malcolm Cid MD PCP - General Family Medicine 01/07/15 documented as of this encounter
--- OUTSIDE RECORDS SUMMARY | 2024-07-31 11:15 | XMS_ITS | Encounter Summary ---
Author Organization [facility] Address [address] [place] [address] Care Team Providers Care Perishable Freight Inspector Name Role Phone Malcolm Cid MD Primary Care Provider [phone] Malcolm Cid MD Unavailable Wednesday, Alma AQUINON Unavailable Jayne Del Valle RN Unavailable Merry Paz TUBE KNITTER Unavailable Unavailable Encounter Details Date Type Department Care Team (Late st Contact Info) Description 05/12/2023 Abstract [facility] [address] [facility] [address] [place] [address] Malcolm Cid MD 112 [facility] 110 [place], [place] [address] Social History Tobacco Use Types Packs/Day Years [...] How often do you attend chur or zoroastrianism services? More than 4 times per year [...] and heating? Not very hard 09/14/2022 [facility] Occupat ional Health - Occupational [...] 08/07/2024 11:00 AM EDT Office Visit [facility] [address] [facility] [address] [place] [address] Marina Proctor PA [address] [place] [address] documented as of this encounter Visit Diagnoses Not on filedocumented in this encounter Care Teams Perishable Freight Inspector Relationship Specialty Start Date End Date Malcolm Cid MD [address] [place] [address] PCP - General Family Medicine 07/29/22 Malcolm Cid MD [address] [place] [address] PCP - [facility] 05/30/22Wednesday, BREE Marquez [address] [place] [address] Licensed Practical Nurse Family Medicine 06/04/23 Jayne Del Valle, DELMIS Licensed Practical Nurse Family Medicine 04/07/2404/30 Merry Paz LPN 05/19/24 documented as of this encounter
--- OUTSIDE RECORDS SUMMARY | 2024-07-31 11:15 | XMS_ITS | Encounter Summary ---
Author Organization [facility] Address [address] [place] [address] Care Team Providers Care Grain Cleaner And Transfer Operator Name Role Phone Malcolm Cid MD Primary Care Provider [phone] Source Comments In the event this information is protected by the Federal Confidentiality of Alcohol and Drug AbusePatient Records regulations: The Federal rules restrict any use of the information to criminally investigate or prosecute any alcohol or drug abuse patient.[facility] Encounter Details Date Type Department Care Team (Late st Contact Info) Description 09/08/2023 Patient Msg Pediatrics [place] [address] [place] [address] Provider, Ccf Rheumatology Appointment Cancellation Social History Tobacco Use Types Packs/Day Years Used Date Smoking Tobacco: Never Smokeless Tobacco: Current Chew PHQ-2 Answer Date Recorded PHQ-2 score 4 08/13/2022 Area Deprivation Index Answer Date Adis rded National Score (1-100), lower number is lower ri sk 87 08/14/2022 State Score (1-10), lower number is lower risk 8 08/14/2022 Data from: https://www.neighborhoodatlas.medicine.[facility].edu/. Last address used for calculation [...] 10/03/2024 8:00 AM EDT Office Visit Rheumatology [address] [place] [address] [place] [address] [place] [address] Return in about 9 months (around 10/03/2024). documented as of this encounter Visit Diagnoses Not on filedocumented in this encounter Care Teams Grain Cleaner And Transfer Operator Relationship Specialty Start Date End Date Malcolm Cid MD PCP - General Family Medicine 01/07/15 documented as of this encounter
--- OUTSIDE RECORDS SUMMARY | 2024-07-31 11:15 | XMS_ITS | Encounter Summary ---
Author Organization [facility] Address [facility] [place] [address] Care Team Providers Care Manager Gallery Name Role Phone Malcolm Cid MD Primary Care Provider [phone]- [phone] Source Comments In the event this information is protected by the Federal Confidentiality of Alcohol and Drug AbusePatient Records regulations: The Federal rules restrict any use of the information to criminally investigate or prosecute any alcohol or drug abuse patient.[facility] Encounter Details Date Type Department Care Team (Late st Contact Info) Description 09/17/2020 Patient Msg Kidney Medicine [address] [place], [place] [address] Madonna Serrano, ACCOUNTS PAYABLE TECHNICIAN.ASSISTANT MEDIA PLANNER [address] [place] [address] RE: BP Social History Tobacco Use Types Packs/Day Years Used Date Smoking Tobacco: Never Smokeless Tobacco: Current Chew PHQ-2 Answer Date Recorded PHQ-2 score 3 08/19/2020 Area Deprivation Index Answer Date Adis rded National Score (1-100), lower number is lower ri sk Not on file 02/05/2020 State Score (1-10), lower number is lower risk N ot on file 02/05/2020 Data from: https://www.neighborhoodatlas.[facility]/. Last address used for calculation [...] 10/03/2024 8:00 AM EDT Office Visit Rheumatology [address] [place], [place] [phone] [place] [address] [place], [place] [address] Return in about 9 months (around 10/03/2024). documented as of this encounter Visit Diagnoses Not on filedocumented in this encounter Care Teams Manager Gallery Relationship Specialty Start Date End Date Malcolm Cid MD PCP - General Family Medicine 01/07/15 documented as of this encounter
--- OUTSIDE RECORDS SUMMARY | 2024-07-31 11:15 | XMS_ITS | Encounter Summary ---
Author Organization [facility] Address [address] [place] [address] Care Team Providers Care Concrete Tile Machine Operator Name Role Phone Malcolm Cid MD Primary Care Provider +1- [phone] Source Comments In the event this information is protected by the Federal Confidentiality of Alcohol and Drug AbusePatient Records regulations: The Federal rules restrict any use of the information to criminally investigate or prosecute any alcohol or drug abuse patient.[facility] Encounter Details Date Type Department Care Team (Late st Contact Info) Description 09/20/2023 Patient [facility] HB-[address] [place] [address] Nevin Balbuena RPh At your next appointment, choose [facility] Social History Tobacco Use Types Packs/Day Years Used Date Smoking Tobacco: Never Smokeless Tobacco: Current Chew PHQ-2 Answer Date Recorded PHQ-2 score 4 08/13/2022 Area Deprivation Index Answer Date Adis rded National Score (1-100), lower number is lower ri sk 87 08/14/2022 State Score (1-10), lower number is lower risk 8 08/14/2022 Data from: https://www.neighborhoodatlas.medicine.[facility].edu/. Last address used for calculation [address] 08/14/2022 Sex and Gender Information Value Date [...] 10/03/2024 8:00 AM EDT Office Visit Rheumatology [address] [place] [address] [place] [address] [place] [address] Return in about 9 months (around 10/03/2024). documented as of this encounter Visit Diagnoses Not on filedocumented in this encounter Care Teams Concrete Tile Machine Operator Relationship Specialty Start Date End Date Malcolm Cid MD PCP - General Family Medicine 01/07/15 documented as of this encounter
--- OUTSIDE RECORDS SUMMARY | 2024-07-31 11:15 | XMS_ITS | Encounter Summary ---
Author Organization [facility] Address [address] [place] [address] Care Team Providers Care Coffee Attendant Name Role Phone Malcolm Cid MD Primary Care Provider +1- [phone] Source Comments In the event this information is protected by the Federal Confidentiality of Alcohol and Drug AbusePatient Records regulations: The Federal rules restrict any use of the information to criminally investigate or prosecute any alcohol or drug abuse patient.[facility] Encounter Details Date Type Department Care Team (Late st Contact Info) Description 08/14/2022 Patient Msg Rheumatology [address] [place], [place] [id number] [place] [address] [place] [address] Previsit lab reminder Social History Tobacco Use Types Packs/Day Years Used Date Smoking Tobacco: Never Smokeless Tobacco: Current Chew PHQ-2 Answer Date Recorded PHQ-2 score 4 08/13/2022 Area Deprivation Index Answer Date Adis rded National Score (1-100), lower number is lower ri sk 87 08/14/2022 State Score (1-10), lower number is lower risk 8 08/14/2022 Data from: https://www.neighborhoodatlas.[facility]/. Last address used [...] 10/03/2024 8:00 AM EDT Office Visit Rheumatology [address] [place], [place] [address] [place] [address] [place], [place] [id number] Return in about 9 months (around 10/03/2024). documented as of this encounter Visit Diagnoses Not on filedocumented in this encounter Care Teams Coffee Attendant Relationship Specialty Start Date End Date Malcolm Cid MD PCP - General Family Medicine 01/07/15 documented as of this encounter
--- OUTSIDE RECORDS SUMMARY | 2024-07-31 11:15 | XMS_ITS | Encounter Summary ---
Author Organization [facility] Address [address] [place] [address] Care Team Providers Care Handle Maker Name Role Phone Malcolm Cid MD Primary Care Provider [phone]- [phone] Source Comments In the event this information is protected by the Federal Confidentiality of Alcohol and Drug AbusePatient Records regulations: The Federal rules restrict any use of the information to criminally investigate or prosecute any alcohol or drug abuse patient.[facility] Encounter Details Date Type Department Care Team (Late st Contact Info) Description 08/19/2020 Patient Msg Rheumatology [address] [place], [place] [id number] [place] [address] [place] [address] October lab reminder Social History Tobacco Use Types Packs/Day Years Used Date Smoking Tobacco: Never Smokeless Tobacco: Current Chew PHQ-2 Answer Date Recorded PHQ-2 score 3 08/19/2020 Area Deprivation Index Answer Date Adis rded National Score (1-100), lower number is lower ri sk Not on file 02/05/2020 State Score (1-10), lower number is lower risk N ot on file 02/05/2020 Data from: https://www.neighborhoodatlas.[facility]/. Last address used for calculation Not on [...] 10/03/2024 8:00 AM EDT Office Visit Rheumatology [address] [place], [place] 2865[address] [place] [address] [place], [place] [id number] Return in about 9 months (around 10/03/2024). documented as of this encounter Visit Diagnoses Not on filedocumented in this encounter Care Teams Handle Maker Relationship Specialty Start Date End Date Malcolm Cid MD PCP - General Family Medicine 01/07/15 documented as of this encounter
--- OUTSIDE RECORDS SUMMARY | 2024-07-31 11:15 | XMS_ITS | Encounter Summary ---
Author Organization [facility] Address [facility] [place] [address] Care Team Providers Care Tail Board Worker Name Role Phone Malcolm Cid MD Primary Care Provider +1- [phone] Source Comments In the event this information is protected by the Federal Confidentiality of Alcohol and Drug AbusePatient Records regulations: The Federal rules restrict any use of the information to criminally investigate or prosecute any alcohol or drug abuse patient.[facility] Encounter Details Date Type Department Care Team (Late st Contact Info) Description 11/29/2020 Get Medical Advice Kidney Medicine [address] [place], [place] [id number] Madonna Serrano, MARINE ENGINEER.LEGAL ASSISTANT [address] [place] [address] RE: Test Result Question Social [...] N ot on file 02/05/2020 Data from: https://www.neighborhoodatlas.[facility]/. Last address used for calculation [...] 10/03/2024 8:00 AM EDT Office Visit Rheumatology [address] [place], [place] [id number] [place] [address] [place], [place] 4906[address] Return in about 9 months (around 10/03/2024). documented as of this encounter Visit Diagnoses Not on filedocumented in this encounter Care Teams Tail Board Worker Relationship Specialty Start Date End Date Malcolm Cid MD PCP - General Family Medicine 01/07/15 documented as of this encounter
--- OUTSIDE RECORDS SUMMARY | 2024-07-31 11:15 | XMS_ITS | Encounter Summary ---
Author Organization [facility] Address [address] [place] [address] Care Team Providers Care Property Consultant Name Role Phone Malcolm Cid MD Primary Care Provider +1- [phone] Source Comments In the event this information is protected by the Federal Confidentiality of Alcohol and Drug AbusePatient Records regulations: The Federal rules restrict any use of the information to criminally investigate or prosecute any alcohol or drug abuse patient.[facility] Encounter Details Date Type Department Care Team (Late st Contact Info) Description 02/04/2024 Get Medical Advice Rheumatology [address] [place], [place] 56[address] [place] [address] [place] [address] Flare up Social History Tobacco Use Types Packs/Day Years Used Date Smoking Tobacco: Never Smokeless Tobacco: Current Chew PHQ-2 Answer Date Recorded PHQ-2 score 1 01/14/2024 Area Deprivation Index Answer Date Adsi rded National Score (1-100), lower number is lower ri sk 87 08/14/2022 State Score (1-10), lower number is lower risk 8 08/14/2022 Data from: https://www.neighborhoodatlas.medicine.[facility]/. Last address used for calculation Thong [...] 10/03/2024 8:00 AM EDT Office Visit Rheumatology [address] [place] [address] [place] [address] [place] [address] Return in about 9 months (around 10/03/2024). documented as of this encounter Visit Diagnoses Not on filedocumented in this encounter Care Teams Property Consultant Relationship Specialty Start Date End Date Malcolm Cid MD PCP - General Family Medicine 01/07/15 documented as of this encounter
--- OUTSIDE RECORDS SUMMARY | 2024-07-31 11:15 | XMS_ITS | Encounter Summary ---
Author Organization [facility] Address [address] [place] [address] Care Team Providers Care Social Media Assistant Name Role Phone Malcolm Cid MD Primary Care Provider [phone] Malcolm Cid MD Unavailable Wednesday, Alma AQUINON Unavailable [phone] Jayne Del Valle RN Unavailable [phone] Merry Paz JANITORIAL ACCOUNT MANAGER Unavailable Unavailable Encounter Details Date Type Department Care Team (Late st Contact Info) Description 04/01/2023 Abstract [facility] [address] [facility] 110 [place] [id number] Malcolm Cid MD 112 [facility] 110 [place], [place] [address] Social History Tobacco Use Types Packs/Day Years [...] 08/07/2024 11:00 AM EDT Office Visit [facility] [address] [facility] 110 [place] [address] Marina Proctor PA [address] [facility] 110 [place] [address] documented as of this encounter Visit Diagnoses Not on filedocumented in this encounter Care Teams Social Media Assistant Relationship Specialty Start Date End Date Malcolm Cid MD [address] [facility] 110 [place] [address] PCP - General Family Medicine 07/29/22 Malcolm Cid MD [address] [place] [address] PCP - [facility] 05/30/22Wednesday, BREE Marquez [address] [place] [address] Licensed Practical Nurse Family Medicine 06/04/23 Jayne Del Valle, DELMIS Licensed Practical Nurse Family Medicine 04/07/2404/30 Merry Paz LPN 05/19/24 documented as of this encounter
--- OUTSIDE RECORDS SUMMARY | 2024-07-31 11:15 | XMS_ITS | Encounter Summary ---
Author Organization [facility] Address [address] [place] [address] Care Team Providers Care Flare Worker Name Role Phone Malcolm Cid MD Primary Care Provider [phone] Malcolm Cid MD Unavailable Wednesday, Alma AQUINON Unavailable [phone] Jayne Del Valle RN Unavailable [phone] Merry Paz LPN Unavailable Unavailable Encounter Details Date Type Department Care Team (Late st Contact Info) Description 06/08/2023 Orders Only [facility] [address] [place] [place] [address] A, Unknown Practice [address] [place] [address] Social History Tobacco Use Types Packs/Day Years [...] any clubs o r organizations such as yazidi groups, unions, fraternal or athletic groups, or [...] care, and heating? Not very hard 09/14/2022 [facility] - [...] 08/07/2024 11:00 AM EDT Office Visit [facility] [address] [facility] 110 [place] [address] Marian Proctor PA [address] [facility] 110 [place] [address] documented as of this encounter Procedures Procedure Name Priority Date/Time Associated Diagnosis Comments ELECTROCARDIOGRAM REPORT Routine 024 11:18 AM EDT documented in this encounter Results * Electrocardiogram Report (06/03/2023 11:18 AM EDT) us Unknown Practice A IN CLINIC/BEDSIDE ORDERABLES Final Result documented in this encounter Visit Diagnoses Not on filedocumented in this encounter Care Teams Flare Worker Relationship Specialty Start Date End Date Malcolm Cid MD [address] [place] [address] PCP - General Family Medicine 07/29/22 Malcolm Cid MD [address] [place] [address] PCP - [facility] 05/30/22WednesdayAlma LPN [address] [place] [address] Licensed Practical Nurse Family Medicine 06/04/23 Jayne Del Valle, RN Licensed Practical Nurse Family Medicine 04/07/2404/30 Merry Paz LPN 05/19/24 documented as of this encounter
--- OUTSIDE RECORDS SUMMARY | 2024-07-31 11:15 | XMS_ITS | Encounter Summary ---
Author Organization [facility] Address [address] [place] [address] Care Team Providers Care Investigation Division Sergeant Name Role Phone Malcolm Cid MD Primary Care Provider [phone] Malcolm Cid MD Unavailable Wednesday, Alma AQUINON Unavailable [phone] Jayne Del Valle RN Unavailable [phone] Merry Paz ICT QUALITY ASSURANCE ENGINEER Unavailable Unavailable Encounter Details Date Type Department Care Team (Late st Contact Info) Description 06/10/2023 Orders Only [facility] [address] [place] [address] Unallocated, Noms Provider, [address] [place], [place] [address] Social History Tobacco Use Types Packs/Day Years [...] How often do you attend chur or congregation services? More than 4 times per year 09/14/2022 Do you belong to any clubs o r organizations such as alevism groups, unions, fraternal or athletic groups, or [...] care, and heating? Not very hard 09/14/2022 [facility] ional [facility] - [...] Visit [facility] [address] [facility] 110 [place] [address] Mairna Proctor PA [address] [place] [address] documented as of this encounter Visit Diagnoses Not on filedocumented in this encounter Care Teams Investigation Division Sergeant Relationship Specialty Start Date End Date Malcolm Cid MD [address] [facility] 110 [place] [address] PCP - General Family Medicine 07/29/22 Malcolm Cid MD [address] [place] [address] PCP - [facility] 05/30/22Wednesday, BREE Marquez [address] [place] [address] Licensed Practical Nurse Family Medicine 06/04/23 Jayne Del Valle, RN Licensed Practical Nurse Family Medicine 04/07/2404/30 Merry Paz LPN 05/19/24 documented as of this encounter
--- OUTSIDE RECORDS SUMMARY | 2024-07-31 11:15 | XMS_ITS | Encounter Summary ---
Author Organization [facility] Address [address] [place] [address] Care Team Providers Care Conservation Or Heritage Architect Name Role Phone Malcolm Cid MD Primary Care Provider [phone] Source Comments In the event this information is protected by the Federal Confidentiality of Alcohol and Drug AbusePatient Records regulations: The Federal rules restrict any use of the information to criminally investigate or prosecute any alcohol or drug abuse patient.[facility] Encounter Details Date Type Department Care Team (Late st Contact Info) Description 08/19/2020 Patient Msg Rheumatology [address] [place], [place] [id number] [place] [address] [place] [address] September lab reminder Social History Tobacco Use Types Packs/Day Years Used Date Smoking Tobacco: Never Smokeless Tobacco: Current Chew PHQ-2 Answer Date Recorded PHQ-2 score 3 08/19/2020 Area Deprivation Index Answer Date Adis rded National Score (1-100), lower number is lower ri sk Not on file 02/05/2020 State Score (1-10), lower number is lower risk N ot on file 02/05/2020 Data from: https://www.neighborhoodatlas.[facility]/. Last address used for calculation Not [...] 10/03/2024 8:00 AM EDT Office Visit Rheumatology [address] [place], [place] [address] [place] [address] [place], [place] [id number] Return in about 9 months (around 10/03/2024). documented as of this encounter Visit Diagnoses Not on filedocumented in this encounter Care Teams Conservation Or Heritage Architect Relationship Specialty Start Date End Date Malcolm Cid MD PCP - General Family Medicine 01/07/15 documented as of this encounter
--- OUTSIDE RECORDS SUMMARY | 2024-07-31 11:15 | XMS_ITS | Encounter Summary ---
Author Organization [facility] Address [address] [address] Care Team Providers Care Morning Caregiver Name Role Phone Malcolm Cid MD Primary Care Provider [phone] Source Comments In the event this information is protected by the Federal Confidentiality of Alcohol and Drug AbusePatient Records regulations: The Federal rules restrict any use of the information to criminally investigate or prosecute any alcohol or drug abuse patient.[facility] Encounter Details Date Type Department Care Team (Late st Contact Info) Description 09/09/2022 Get Medical Advice Rheumatology [address] [place], [place] [phone] [place] [address] [place] [address] Return to work form. Social History Tobacco Use Types Packs/Day Years Used Date Smoking Tobacco: Never Smokeless Tobacco: Current Chew PHQ-2 Answer Date Recorded PHQ-2 score 4 08/13/2022 Area Deprivation Index Answer Date Adis rded National Score (1-100), lower number is lower ri sk 87 08/14/2022 State Score (1-10), lower number is lower risk 8 08/14/2022 Data from: https://www.[facility]las.[facility]/. Last address used for calculation Thong SALDAÑA [...] 10/03/2024 8:00 AM EDT Office Visit Rheumatology [address] [place], [place] [address] [place] [address] [place], [place] [address] Return in about 9 months (around 10/03/2024). documented as of this encounter Visit Diagnoses Not on filedocumented in this encounter Care Teams Morning Caregiver Relationship Specialty Start Date End Date Malcolm Cid MD PCP - General Family Medicine 01/07/15 documented as of this encounter
--- OUTSIDE RECORDS SUMMARY | 2024-07-31 11:15 | XMS_ITS | Encounter Summary ---
Author Organization [facility] Address [address] [place] [address] Care Team Providers Care Tip Finisher Name Role Phone Malcolm Cid MD Primary Care Provider [phone] Malcolm Cid MD Unavailable Wednesday, Alma AQUINON Unavailable [phone] Jayne Del Valle RN Unavailable Merry Paz DECK AND HULL ASSEMBLER Unavailable Unavailable Encounter Details Date Type Department Care Team (Late st Contact Info) Description 03/25/2023 Abstract [facility] [address] [facility] 110 [place] [address] Malcolm Cid MD 112 [facility] 110 [place], [place] [address] Social History Tobacco Use Types Packs/Day Years [...] How often do you attend chur or church services? More than 4 times per year [...] 08/07/2024 11:00 AM EDT Office Visit [facility] [address] [facility] 110 [place] [address] Marina Proctor PA [address] [facility] 110 [place] [address] documented as of this encounter Visit Diagnoses Not on filedocumented in this encounter Care Teams Tip Finisher Relationship Specialty Start Date End Date Malcolm Cid MD [address] [facility] 110 [place] [address] PCP - General Family Medicine 07/29/22 Malcolm Cid MD [address] [place] [address] PCP - [facility] 05/30/22Wednesday, BREE Marquez [address] [place] [address] Licensed Practical Nurse Family Medicine 06/04/23 Jayne Del Valle, DELMIS Licensed Practical Nurse Family Medicine 04/07/2404/30 Merry Paz LPN 05/19/24 documented as of this encounter
--- OUTSIDE RECORDS SUMMARY | 2024-07-31 11:15 | XMS_ITS | Encounter Summary ---
Author Organization [facility] Address [address] [place] [address] Care Team Providers Care Discotheque Dancer Name Role Phone Malcolm Cid MD Primary Care Provider [phone] Malcolm iCd MD Unavailable Wednesday, Alma AQUINON Unavailable [phone] Jayne Del Valle RN Unavailable Merry Paz SUPERVISOR ROVING Unavailable Unavailable Reason for Visit * Reason Onset Date Comments Med Refill 04/13/2023 Encounter Details Date Type Department Care Team (Late st Contact Info) Description 04/13/2023 Refill [facility] [address] [facility] [address] [place] [address] Marina Proctor, PA [address] [place] [address] 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 [...] heating? Not very hard 09/14/2022 [facility] of Occupat ional Health - Occupational Stress [...] [address] [place] [address] Marina Proctor, PA [address] [place] [address] documented as of this encounter Visit Diagnoses Diagnosis 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 rheumatoid factor ([facility]) Anxiety Anxiety state, unspecified documented in this encounter Care Teams Discotheque Dancer Relationship Specialty Start Date End Date Malcolm Cid MD [address] [place] [address] PCP - General Family Medicine 07/29/22 Malcolm iCd MD [address] [place] [address] PCP - [facility] 05/30/22Wednesday, BREE Marquez [address] [place] [address] Licensed Practical Nurse Family Medicine 06/04/23 Jayne Del Valle, RN Licensed Practical Nurse Family Medicine 04/07/2404/30 Merry Paz LPN 05/19/24 documented as of this encounter
--- OUTSIDE RECORDS SUMMARY | 2024-07-31 11:15 | XMS_ITS | Encounter Summary ---
Author Organization [facility] Address [facility] [place] [address] Care Team Providers Care Performance Test Engineer Name Role Phone Malcolm Cid MD Primary Care Provider [phone] Source Comments In the event this information is protected by the Federal Confidentiality of Alcohol and Drug AbusePatient Records regulations: The Federal rules restrict any use of the information to criminally investigate or prosecute any alcohol or drug abuse patient.[facility] Encounter Details Date Type Department Care Team (Late st Contact Info) Description 12/23/2020 Patient Msg Kidney Medicine [address] [place], [place] [id number] Madonna Serrano, INTELLIGENCE SPECIALIST.WEATHERIZATION SPECIALIST [address] [place] [address] RE: BP Social History Tobacco [...] on file 02/05/2020 Data from: https://www.neighborhoodatlas.[facility]/. Last address used for calculation Not [...] 10/03/2024 8:00 AM EDT Office Visit Rheumatology [address] [place], [place] 6308[address] [place] [address] [place], [place] [phone] Return in about 9 months (around 10/03/2024). documented as of this encounter Visit Diagnoses Not on filedocumented in this encounter Care Teams Performance Test Engineer Relationship Specialty Start Date End Date Malcolm Cid MD PCP - General Family Medicine 01/07/15 documented as of this encounter
--- OUTSIDE RECORDS SUMMARY | 2024-07-31 11:15 | XMS_ITS | Encounter Summary ---
Author Organization [facility] Address [address] [place] [address] Care Team Providers Care Central Office Repairer Supervisor Name Role Phone Malcolm Cid MD Primary Care Provider [phone] Malcolm Cid MD Unavailable Wednesday, Alma AQUINON Unavailable [phone] Jayne Del Valle RN Unavailable Merry Paz COUNTER STITCHER Unavailable Unavailable Encounter Details Date Type Department Care Team (Late st Contact Info) Description 05/11/2023 Abstract [facility] [address] [facility] 110 [place] [id number] Malcolm Cid MD 112 [facility] 110 [place], [place] [id number] Social History Tobacco Use Types Packs/Day Years [...] any clubs o r organizations such as congregational groups, unions, fraternal or athletic groups, or [...] care, and heating? Not very hard 09/14/2022 [facility] of Occupat ional Health - [...] 08/07/2024 11:00 AM EDT Office Visit [facility] [address] [facility] 110 [place] [address] Marina Proctor PA [address] [place] [address] documented as of this encounter Visit Diagnoses Not on filedocumented in this encounter Care Teams Central Office Repairer Supervisor Relationship Specialty Start Date End Date Malcolm Cid MD [address] [place] [address] PCP - General Family Medicine 07/29/22 Malcolm Cid MD [address] [place] [address] PCP - [facility] 05/30/22Wednesday, BREE Marquez [address] [place] [address] Licensed Practical Nurse Family Medicine 06/04/23 Jayne Del Valle, DELMIS Licensed Practical Nurse Family Medicine 04/07/2404/30 Merry Paz LPN 05/19/24 documented as of this encounter
--- OUTSIDE RECORDS SUMMARY | 2024-07-31 11:15 | XMS_ITS | Encounter Summary ---
Author Organization [facility] Address [address] [place] [address] Care Team Providers Care Heart Doctor Name Role Phone Malcolm Cid MD Primary Care Provider [phone] Malcolm Cid MD Unavailable Wednesday, Alma AQUINON Unavailable Jayne Del Valle RN Unavailable [phone] Merry Paz LPN Unavailable Unavailable Encounter Details Date Type Department Care Team (Late st Contact Info) Description 06/15/2023 Orders Only [facility] [address] [place] [place] [address] A, Unknown Practice [address] [place] [address] Social History Tobacco Use Types Packs/Day Years [...] How often do you attend chur or islam services? More than 4 times per year [...] and heating? Not very hard 09/14/2022 [facility] of Occupat ional Health - Occupational [...] 08/07/2024 11:00 AM EDT Office Visit [facility] 112 [facility] 110 [place] [address] Marina Proctor PA [address] [facility] 110 [place] [address] documented as of this encounter Procedures Procedure [...] on filedocumented in this encounter Care Teams Heart Doctor Relationship Specialty Start Date End Date Malcolm Cid MD [address] [place] [address] PCP - General Family Medicine 07/29/22 Malcolm Cid MD [address] [place] [address] PCP - [facility] 05/30/22Wednesday, BREE Marquez [address] [place] [address] Licensed Practical Nurse Family Medicine 06/04/23 Jayne Del Valle, RN Licensed Practical Nurse Family Medicine 04/07/2404/30 Merry Paz LPN 05/19/24 documented as of this encounter
--- OUTSIDE RECORDS SUMMARY | 2024-07-31 11:15 | XMS_ITS | Encounter Summary ---
Author Organization [facility] Address [address] [place] [address] Care Team Providers Care Chamber Magistrate Name Role Phone Malcolm Cid MD Primary Care Provider [phone] Malcolm Cid MD Unavailable Wednesday, Alma AQUINON Unavailable [phone] Jayne Del Valle RN Unavailable [phone] Merry Paz GLASS CARRIER Unavailable Unavailable Encounter Details Date Type Department Care Team (Late st Contact Info) Description 06/09/2023 Orders Only [facility] [address] [place] 110 [place] [address] Unallocated, Noms Provider, [address] [place], [place] [id number] Social History Tobacco Use Types Packs/Day Years [...] care, and heating? Not very hard 09/14/2022 [facility] of Occupat ional Health - Occupational [...] 08/07/2024 11:00 AM EDT Office Visit [facility] [address] [facility] 110 [place] [address] Marina Proctor PA [address] [facility] 110 [place] [address] documented as of this encounter Procedures Procedure Name Priority Date/Time Associated Diagnosis Comments ELECTROCARDIOGRAM REPORT Routine 024 7:55 AM EDT documented in this encounter Results * Electrocardiogram Report (06/02/2023 7:55 AM EDT) us Noms Provider Unallocated MD IN CLINIC/BEDSIDE O RDERABLES Final Result documented in this encounter Visit Diagnoses Not on filedocumented in this encounter Care Teams Chamber Magistrate Relationship Specialty Start Date End Date Malcolm Cid MD [address] [place] [address] PCP - General Family Medicine 07/29/22 Malcolm Cid MD [address] [place] [address] PCP - [facility] 05/30/22Wednesday, BREE Marquez [address] [place] [address] Licensed Practical Nurse Family Medicine 06/04/23 Jayne Del Valle, RN Licensed Practical Nurse Family Medicine 04/07/2404/30 Merry Paz LPN 05/19/24 documented as of this encounter
--- OUTSIDE RECORDS SUMMARY | 2024-07-31 11:15 | XMS_ITS | Encounter Summary ---
Author Organization [facility] Address [address] [place] [address] Care Team Providers Care Crayon Grader Name Role Phone Malcolm Cid MD Primary Care Provider [phone] Malcolm Cid MD Unavailable Wednesday, Alma AQUINON Unavailable [phone] Jayne Del Valle RN Unavailable [phone] Merry Paz AUTO WASH BUFFER Unavailable Unavailable Encounter Details Date Type Department Care Team (Late st Contact Info) Description 04/21/2023 Orders Only [facility] [address] [place] [place] [address] A, Unknown Practice 1300 [place] [address] Social History Tobacco Use Types Packs/Day Years [...] and heating? Not very hard 09/14/2022 [facility] of Occupat ional Health [...] Encounters Date Type Department Care Team (Late Contact Info) Description 08/07/2024 11:00 AM EDT Office Visit [facility] 112 [facility] 110 [place] [address] Marina Proctor PA [address] [facility] 110 [place] [address] documented as of this encounter Procedures Procedure Name Priority Date/Time Associated Diagnosis Comments ELECTROCARDIOGRAM REPORT Routine 024 2:49 PM EST documented in this encounter Results * Electrocardiogram Report (04/20/2023 2:49 PM EST) us Unknown Practice A IN CLINIC/BEDSIDE ORDERABLES Final Result documented in this encounter Visit Diagnoses Not on filedocumented in this encounter Care Teams Crayon Grader Relationship Specialty Start Date End Date Palak, Rugen M, MD [address] [place] [address] PCP - General Family Medicine 07/29/22 Malcolm Cid MD [address] [place] [address] PCP - [facility] 05/30/22Wednesday, BREE Marquez [address] [place] [address] Licensed Practical Nurse Family Medicine 06/04/23 Jayne Del Valle, RN Licensed Practical Nurse Family Medicine 04/07/2404/30 Merry Paz LPN 05/19/24 documented as of this encounter
--- OUTSIDE RECORDS SUMMARY | 2024-07-31 11:15 | XMS_ITS | Encounter Summary ---
Author Organization [facility] Address [address] [place] [address] Care Team Providers Care Lathe Operator Name Role Phone Malcolm Cid MD Primary Care Provider [phone] Source Comments In the event this information is protected by the Federal Confidentiality of Alcohol and Drug AbusePatient Records regulations: The Federal rules restrict any use of the information to criminally investigate or prosecute any alcohol or drug abuse patient.[facility] Encounter Details Date Type Department Care Team (Late st Contact Info) Description 09/16/2023 Patient [facility] HB[facility] [place] [address] Mariah Hutchins RPh At your next appointment, choose [facility] Social History Tobacco Use Types Packs/Day Years Used Date Smoking Tobacco: Never Smokeless Tobacco: Current Chew PHQ-2 Answer Date Recorded PHQ-2 score 4 08/13/2022 Area Deprivation Index Answer Date Adis rded National Score (1-100), lower number is lower ri sk 87 08/14/2022 State Score (1-10), lower number is lower risk 8 08/14/2022 Data from: https://www.neighborhoodatlas.medicine.[facility].edu/. Last address used for calculation [address] 08/14/2022 Sex and Gender Information Value Date [...] 10/03/2024 8:00 AM EDT Office Visit Rheumatology [address] [place] [address] [place] [address] [place] [address] Return in about 9 months (around 10/03/2024). documented as of this encounter Visit Diagnoses Not on filedocumented in this encounter Care Teams Lathe Operator Relationship Specialty Start Date End Date Malcolm Cid MD PCP - General Family Medicine 01/07/15 documented as of this encounter
--- OUTSIDE RECORDS SUMMARY | 2024-07-31 11:15 | XMS_ITS | Encounter Summary ---
Author Organization [facility] Address [address] [place] [address] Care Team Providers Care Menhaden Fishing Crew Member Name Role Phone Malcolm Cid MD Primary Care Provider [phone] Malcolm Cid MD Unavailable Wednesday, Alma AQUINON Unavailable [phone] Jayne Del Valle RN Unavailable Merry Paz CENTRIFUGAL SUPERVISOR Unavailable Unavailable Encounter Details Date Type Department Care Team (Late st Contact Info) Description 2023 Abstract [facility] [address] [facility] 110 [place] [address] Malcolm Cid MD 112 [facility] 110 [place], [place] [address] Social History Tobacco Use Types Packs/Day Years [...] care, and heating? Not very hard 09/14/2022 [facility] of Occupat ional Health - Occupational [...] 11:00 AM EDT Office Visit [facility] [address] [facility] 110 [place] [address] Marina Proctor PA [address] [facility] 110 [place] [address] documented as of this encounter Visit Diagnoses Not on filedocumented in this encounter Care Teams Menhaden Fishing Crew Member Relationship Specialty Start Date End Date Malcolm Cid MD [address] [facility] 110 [place] [address] PCP - General Family Medicine 07/29/22 Malcolm Cid MD [address] [place] [address] PCP - [facility] 05/30/22Wednesday, BREE Marquez [address] [place] [address] Licensed Practical Nurse Family Medicine 06/04/23 Jayne Del Valle, DELMIS Licensed Practical Nurse Family Medicine 04/07/2404/30 Merry Paz LPN 05/19/24 documented as of this encounter
--- OUTSIDE RECORDS SUMMARY | 2024-07-31 11:15 | XMS_ITS | Encounter Summary ---
Author Organization [facility] Address [address] [place] [address] Care Team Providers Care Brace Maker Name Role Phone Malcolm Cid MD Primary Care Provider [phone] Source Comments In the event this information is protected by the Federal Confidentiality of Alcohol and Drug AbusePatient Records regulations: The Federal rules restrict any use of the information to criminally investigate or prosecute any alcohol or drug abuse patient.[facility] Encounter Details Date Type Department Care Team (Late st Contact Info) Description 08/19/2020 Patient Msg Rheumatology [address] [place], [place] [phone] [place] [address] [place] [address] August lab reminder Social History Tobacco Use [...] on file 02/05/2020 Data from: https://www.neighborhoodatlas.[facility]/. Last address used for calculation Not on [...] 10/03/2024 8:00 AM EDT Office Visit Rheumatology [address] [place], [place] [address] [place] [address] [place], [place] [address] Return in about 9 months (around 10/03/2024). documented as of this encounter Visit Diagnoses Not on filedocumented in this encounter Care Teams Brace Maker Relationship Specialty Start Date End Date Malcolm Cid MD PCP - General Family Medicine 01/07/15 documented as of this encounter
--- OUTSIDE RECORDS SUMMARY | 2024-07-31 11:15 | XMS_ITS | Encounter Summary ---
Author Organization [facility] Address [address] [place] [address] Care Team Providers Care Visitor Services Representative Name Role Phone Malcolm Cid MD Primary Care Provider [phone] Source Comments In the event this information is protected by the Federal Confidentiality of Alcohol and Drug AbusePatient Records regulations: The Federal rules restrict any use of the information to criminally investigate or prosecute any alcohol or drug abuse patient.[facility] Encounter Details Date Type Department Care Team (Late st Contact Info) Description 01/04/2024 Patient Msg Rheumatology [address] [place], [place] [phone] [place] [address] [place] [address] Previsit lab reminder Social History Tobacco Use Types Packs/Day Years Used Date Smoking Tobacco: Never Smokeless Tobacco: Current Chew PHQ-2 Answer Date Recorded PHQ-2 score 4 08/13/2022 Area Deprivation Index Answer Date Adis rded National Score (1-100), lower number is lower ri sk 87 08/14/2022 State Score (1-10), lower number is lower risk 8 08/14/2022 Data from: https://www.neighborhoodatlas.[facility]/. Last address used for calculation [place] [...] 10/03/2024 8:00 AM EDT Office Visit Rheumatology [address] [place], [place] [address] [place] [address] [place], [place] [address] Return in about 9 months (around 10/03/2024). documented as of this encounter Visit Diagnoses Not on filedocumented in this encounter Care Teams Visitor Services Representative Relationship Specialty Start Date End Date Malcolm Cid MD PCP - General Family Medicine 01/07/15 documented as of this encounter
--- OUTSIDE RECORDS SUMMARY | 2024-07-31 11:15 | XMS_ITS | Encounter Summary ---
Author Organization [facility] Address [address] [place] [address] Care Team Providers Care Executive Business Coach Name Role Phone Malcolm Cid MD Primary Care Provider [phone] Malcolm Cid MD Unavailable Wednesday, Alma AQUINON Unavailable [phone] Jayne Del Valle RN Unavailable Merry Paz WASTEWATER PROCESS ENGINEER Unavailable Unavailable Reason for Visit * Reason Onset Date Comments Med Refill 03/16/2023 Tr[facility] Encounter Details Date Type Department Care Team (Late st Contact Info) Description 03/16/2023 Refill [facility] [address] [facility] 110 [place] [phone] Malcolm Cid MD [address] [facility] 110 [place] [address] Rheumatoid arthritis involving multiple sites [...] care, and heating? Not very hard 09/14/2022 [facility] of Occupat ional Health - Occupational Stress [...] place to sleep or slept in a long-term (including now)? No 09/14/2022 Sex and Gender [...] [address] [place] [address] Marina Proctor PA [address] [place] [address] documented as of this encounter Visit Diagnoses Diagnosis 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 rheumatoid factor ([facility] documented in this encounter Care Teams Executive Business Coach Relationship Specialty Start Date End Date Malcolm Cid MD [address] [place] [address] PCP - General Family Medicine 07/29/22 Malcolm Cid MD [address] [place] [address] PCP - [facility] 05/30/22Wednesday, BREE Marquez [address] [place] [address] Licensed Practical Nurse Family Medicine 06/04/23 Jayne Del Valle, RN Licensed Practical Nurse Family Medicine 04/07/2404/30 Merry Paz LPN 05/19/24 documented as of this encounter
--- OUTSIDE RECORDS SUMMARY | 2024-07-31 11:16 | XMS_ITS | Encounter Summary ---
Author Organization [facility] Address [address] [place] [address] Care Team Providers Care Comber Tender Name Role Phone Malcolm Cdi MD Primary Care Provider [phone] Malcolm Cid MD Unavailable Monday, Alma AQUINON Unavailable [phone] Jayne Del Valle RN Unavailable [phone] Merry Paz LPN Unavailable Unavailable Encounter [...] and heating? Not very hard 10/10/2023 [facility] of Occupat ional Health - Occupational [...] any time in the past 12 m [facility], were you homeless or living [...] 08/07/2024 11:00 AM EDT Office Visit [facility] 112 [facility] 110 [place] [address] Marina Proctor PA 112 [facility] 110 [place] [address] documented as of this encounter Procedures Procedure [...] similar to 05/04/2017. Mild right knee osteoarthritis. Air Support Operations Operator: PSCB Transcribe Date/Time: Jan 04 2024 12:48P Dictated by : CHELSEA REEVES MD This examination was interpreted and the report reviewed and electronically signed by: CHELSEA REEVES MD on Jan 04 2024 1:21PM EST [id number]^SI^ACN Procedure Note Radiology, Radiologist, - 01/04/2024 * [...] similar to 05/04/2017. Mild right knee osteoarthritis. Air Support Operations Operator: PSCB Transcribe Date/Time: Jan 04 2024 12:48P Dictated by : CHELSEA REEVES MD This examination was interpreted and the report reviewed and electronically signed by: CHELSEA REEVES MD on Jan 04 2024 1:21PM EST [id number]^[id number]^SI^ACN Generic External Data Provider [facility] Final Result documented in this encounter Visit Diagnoses Not on filedocumented in this encounter Care Teams Comber Tender Relationship Specialty Start Date End Date Malcolm Cid MD [address] [facility] 110 [place] [address] PCP - General Family Medicine 07/29/22 Malcolm Cid MD [address] [facility] 110 [place] [address] PCP - [facility] 05/30/22Wednesday, BREE Marquez 112 [place] [address] Licensed Practical Nurse Family Medicine 06/04/23 Jayne Del Valle, DELMIS Licensed Practical Nurse Family Medicine 04/07/2404/30 Merry Paz LPN 05/19/24 documented as of this encounter
--- OUTSIDE RECORDS SUMMARY | 2024-07-31 11:16 | XMS_ITS | Encounter Summary ---
Author Organization [facility] Address [address] [place] [address] Care Team Providers Care Real Estate Economist Name Role Phone Malcolm Cid MD Primary Care Provider [phone] Malcolm Cid MD Unavailable Wednesday, Alma LINE REPAIRER Unavailable [phone] Jayne Del Valle RN Unavailable Merry Paz LINE REPAIRER Unavailable Unavailable Encounter Details Date Type Department Care Team (Late st Contact Info) Description 08/17/2022 Abstract [facility] [address] [facility] 110 [place] [phone] Malcolm Cid MD [address] [facility] 110 [place] [address] Social History Tobacco Use Types Packs/Day Years [...] Visit [facility] [address] [facility] 110 [place] [address] Marina Proctor, PA [address] [place] [address] documented as of this encounter Visit Diagnoses Not on filedocumented in this encounter Care Teams Real Estate Economist Relationship Specialty Start Date End Date Malcolm Cid MD [address] [place] [address] PCP - General Family Medicine 07/29/22 Malcolm Cid MD [address] [place] [address] PCP - [facility] 05/30/22Wednesday, BREE Marquez [address] [place] [address] Licensed Practical Nurse Family Medicine 06/04/23 Jayne Del Valle, RN Licensed Practical Nurse Family Medicine 04/07/2404/30 Merry Paz LPN 05/19/24 documented as of this encounter
--- OUTSIDE RECORDS SUMMARY | 2024-07-31 11:16 | XMS_ITS | Encounter Summary ---
Author Organization [facility] Address [address] [place] [address] Care Team Providers Care Classroom Instructional Aide Name Role Phone Malcolm Cid MD Primary Care Provider [phone] Malcolm Cid MD Unavailable Wednesday, Alma AQUINON Unavailable [phone] Jayne Del Valle RN Unavailable [phone] Merry Paz LIQUEFIED NATURAL GAS PLANT OPERATOR Unavailable Unavailable Encounter Details Date Type Department Care Team (Late st Contact Info) Description 02/16/2023 Abstract [facility] [address] [facility] 110 [place] [address] Malcolm Cid MD 112 [facility] 110 [place], [place] [address] Social History Tobacco Use Types Packs/Day Years [...] care, and heating? Not very hard 09/14/2022 [facility] of Occupat ional Health [...] 08/07/2024 11:00 AM EDT Office Visit [facility] [address] [facility] 110 [place] [address] Marina Proctor PA [address] [facility] 110 [place] [address] documented as of this encounter Visit Diagnoses Not on filedocumented in this encounter Care Teams Classroom Instructional Aide Relationship Specialty Start Date End Date Malcolm Cid MD [address] [facility] 110 [place] [address] PCP - General Family Medicine 07/29/22 Malcolm Cid MD [address] [place] [address] PCP - [facility] 05/30/22Wednesday, BREE Marquez [address] [place] [address] Licensed Practical Nurse Family Medicine 06/04/23 Jayne Del Valle, DELMIS Licensed Practical Nurse Family Medicine 04/07/2404/30 Merry Paz LPN 05/19/24 documented as of this encounter
--- OUTSIDE RECORDS SUMMARY | 2024-07-31 11:16 | XMS_ITS | Encounter Summary ---
Author Organization [facility] Address [address] [place] [address] Care Team Providers Care Economic Geographer Name Role Phone Malcolm Cid MD Primary Care Provider [phone] Malcolm Cid MD Unavailable Wednesday, Alma AQUINON Unavailable [phone] Jayne Del Valle RN Unavailable Merry Paz HOUSEKEEPER HOME Unavailable Unavailable Encounter Details Date Type Department Care Team (Late st Contact Info) Description 01/20/2023 Abstract [facility] [address] [facility] 110 [place] [address] Malcolm Cid MD 112 [facility] 110 [place], [place] [address] Social History Tobacco Use Types Packs/Day Years [...] EDT Office Visit [facility] 112 [facility] 110 [place] [address] Marina Proctor PA [address] [facility] 110 [place] [address] documented as of this encounter Visit Diagnoses Not on filedocumented in this encounter Care Teams Economic Geographer Relationship Specialty Start Date End Date Malcolm Cid MD [address] [facility] 110 [place] [address] PCP - General Family Medicine 07/29/22 Malcolm Cid MD [address] [facility] 110 [place] [address] PCP - [facility] 05/30/22Wednesday, BERE Marquez [address] [facility] 110 [place] [address] Licensed Practical Nurse Family Medicine 06/04/23 Jayne Del Valle, RN Licensed Practical Nurse Family Medicine 04/07/2404/30 Merry Paz LPN 05/19/24 documented as of this encounter
--- OUTSIDE RECORDS SUMMARY | 2024-07-31 11:16 | XMS_ITS | Encounter Summary ---
Author Organization [facility] Address [address] [place] [address] Care Team Providers Care Advertising Strategist Name Role Phone Malcolm Cid MD Primary Care Provider [phone] Malcolm Cid MD Unavailable Wednesday, Alma AQUINON Unavailable [phone] Jayne Del Valle RN Unavailable Merry Paz OIL PROGRAM COMPLIANCE SPECIALIST Unavailable Unavailable Encounter Details Date Type Department Care Team (Late st Contact Info) Description 02/09/2023 Abstract [facility] [address] [facility] 110 [place] [id number] Malcolm Cid MD 112 [facility] 110 [place], [place] [id number] Social History Tobacco Use Types Packs/Day Years [...] EDT Office Visit [facility] 112 [facility] 110 [place] [address] Marina Proctor PA [address] [place] [facility] 110 [place] [address] documented as of this encounter Visit Diagnoses Not on filedocumented in this encounter Care Teams Advertising Strategist Relationship Specialty Start Date End Date Malcolm Cid MD [address] [facility] 110 [place] [address] PCP - General Family Medicine 07/29/22 Malcolm Cid MD [address] [facility] 110 [place] [address] PCP - [facility] 05/30/22Wednesday, BREE Marquez [address] [facility] 110 [place] [address] Licensed Practical Nurse Family Medicine 06/04/23 Jayne Del Valle, RN Licensed Practical Nurse Family Medicine 04/07/2404/30 Merry Paz LPN 05/19/24 documented as of this encounter
--- OUTSIDE RECORDS SUMMARY | 2024-07-31 11:16 | XMS_ITS | Encounter Summary ---
Author Organization [facility] Address [address] [place] [address] Care Team Providers Care Welding Manager Name Role Phone Malcolm Cid MD Primary Care Provider [phone] Malcolm Cid MD Unavailable Wednesday, Alma AQUINON Unavailable Jayne Del Valle RN Unavailable Merry Paz PAYMENT ANALYST Unavailable Unavailable Encounter Details Date Type Department Care Team (Late st Contact Info) Description 02/09/2024 Abstract [facility] 112 [facility] 110 [place] [address] Malcolm Cid MD 112 [facility] 110 [place], [place] [id number] Social History Tobacco Use Types Packs/Day Years [...] How often do you attend chur or anabaptism services? More than 4 times per year [...] care, and heating? Not very hard 10/10/2023 [facility] [place] of Occupat ional Health - Occupational Stress [...] FM [address] [facility] [address] [place] [address] Marina Proctor PA [address] [facility] [address] [place] [address] documented as of this encounter Visit Diagnoses Not on filedocumented in this encounter Care Teams Welding Manager Relationship Specialty Start Date End Date Malcolm Cid MD [address] [facility] [address] [place] [address] PCP - General Family Medicine 07/29/22 Malcolm Cid MD [address] [facility] [address] [place] [address] PCP - [facility] 05/30/22Wednesday, BREE Marquez [address] [place] [address] Licensed Practical Nurse Family Medicine 06/04/23 Jayne Del Valle, RN Licensed Practical Nurse Family Medicine 04/07/2404/30 Merry Paz LPN 05/19/24 documented as of this encounter
--- OUTSIDE RECORDS SUMMARY | 2024-07-31 11:16 | XMS_ITS | Encounter Summary ---
Author Organization [facility] Address [address] [place] [address] Care Team Providers Care Differential Specialist Name Role Phone Malcolm Cid MD Primary Care Provider [phone] Malcolm Cid MD Unavailable Wednesday, Alma AQUINON Unavailable [phone] Jayne Del Valle RN Unavailable Merry Paz CLIMATOLOGIST Unavailable Unavailable Reason for Visit * Reason Comments Med Refill Encounter Details Date Type Department Care Team (Late st Contact Info) Description 12/03/2022 Refill [facility] [address] [facility] 110 [place] [address] Marina Proctor, PA [address] [facility] 110 [place] [address] Rheumatoid arthritis, unspecified (CMS/HCC) Social History Tobacco [...] any clubs o r organizations such as jew groups, unions, fraternal or athletic groups, or [...] heating? Not very hard 09/14/2022 [facility] of Occupat ional Health - Occupational [...] Visit [facility] [address] [facility] 110 [place] [address] Marina Proctor PA [address] [facility] 110 [place] [address] documented as of this encounter Visit Diagnoses Diagnosis Rheumatoid arthritis, unspecified documented in this encounter Care Teams Differential Specialist Relationship Specialty Start Date End Date Malcolm Cid MD [address] [place] 110 [place] [address] PCP - General Family Medicine 07/29/22 Malcolm Cid MD [address] [facility] [address] [place] [address] PCP - [facility] 05/30/22Wednesday, BREE Marquez [address] [place] [address] Licensed Practical Nurse Family Medicine 06/04/23 Jayne Del Valle, RN Licensed Practical Nurse Family Medicine 04/07/2404/30 Merry Paz LPN 05/19/24 documented as of this encounter
--- OUTSIDE RECORDS SUMMARY | 2024-07-31 11:16 | XMS_ITS | Encounter Summary ---
Author Organization [facility] Address [address] [place] [address] Care Team Providers Care Foundation Director Name Role Phone Malcolm Cid MD Primary Care Provider [phone] Malcolm Cid MD Unavailable Wednesday, Alma AUQINON Unavailable [phone] Jayne Del Valle RN Unavailable Merry Paz MEDICAL SOCIAL CONSULTANT Unavailable Unavailable Encounter Details Date Type Department Care Team (Late st Contact Info) Description 01/11/2023 Abstract [facility] [address] [facility] 110 [place] [address] Malcolm Cid MD 112 [facility] 110 [place], [place] [address] Social History Tobacco Use Types Packs/Day Years [...] care, and heating? Not very hard 09/14/2022 [facility] of Occupat ional Health [...] EDT Office Visit [facility] [address] [facility] 110 [place] [address] Marina Proctor PA [address] [place] [facility] 110 [place] [address] documented as of this encounter Visit Diagnoses Not on filedocumented in this encounter Care Teams Foundation Director Relationship Specialty Start Date End Date Malcolm Cid MD [address] [facility] 110 [place] [address] PCP - General Family Medicine 07/29/22 Malcolm Cid MD [address] [facility] 110 [place] [address] PCP - [facility] 05/30/22Wednesday, BREE Marquez [address] [facility] 110 [place] [address] Licensed Practical Nurse Family Medicine 06/04/23 Jayne Del Valle, RN Licensed Practical Nurse Family Medicine 04/07/2404/30 Merry Paz LPN 05/19/24 documented as of this encounter
--- OUTSIDE RECORDS SUMMARY | 2024-07-31 11:16 | XMS_ITS | Encounter Summary ---
Author Organization [facility] Address [address] [place] [address] Care Team Providers Care Utility Hand Name Role Phone Malcolm Cid MD Primary Care Provider [phone] Malcolm Cid MD Unavailable Wednesday, Alma AQUINON Unavailable [phone] Jayne Del Valle RN Unavailable [phone] Merry Paz RESPIRATORY COORDINATOR Unavailable Unavailable Encounter Details Date Type Department Care Team (Late st Contact Info) Description 01/11/2023 Abstract [facility] [address] [facility] 110 [place] [address] Malcolm Cid MD 112 [facility] 110 [place], [place] [address] Social History Tobacco Use Types Packs/Day Years [...] EDT Office Visit [facility] 112 [facility] 110 [place] [address] Marina Proctor PA [address] [place] [facility] 110 [place] [address] documented as of this encounter Visit Diagnoses Not on filedocumented in this encounter Care Teams Utility Hand Relationship Specialty Start Date End Date Malcolm Cid MD [address] [facility] 110 [place] [address] PCP - General Family Medicine 07/29/22 Malcolm Cid MD [address] [facility] 110 [place] [address] [facility]22Wednesday, BREE Marquez [address] [facility] 110 [place] [address] Licensed Practical Nurse Family Medicine 06/04/23 Jayne Del Valle, RN Licensed Practical Nurse Family Medicine 04/07/2404/30 Merry Paz LPN 05/19/24 documented as of this encounter
--- OUTSIDE RECORDS SUMMARY | 2024-07-31 11:16 | XMS_ITS | Encounter Summary ---
Author Organization [facility] Address [address] [place] [address] Care Team Providers Care Primary School Teacher Librarian Name Role Phone Malcolm Cid MD Primary Care Provider [phone] Malcolm Cid MD Unavailable Wednesday, Alma AQUINON Unavailable [phone] Jayne Del Valle RN Unavailable Merry Paz SALES OPERATIONS ANALYST Unavailable Unavailable Encounter Details Date Type Department Care Team (Late st Contact Info) Description 01/12/2023 Abstract [facility] [address] [facility] 110 [place] [address] Malcolm Cid MD 112 [facility] 110 [place], [place] [address] Social History Tobacco Use Types Packs/Day Years [...] heating? Not very hard 09/14/2022 [facility] of Occupat ional Health - [...] Office Visit [facility] [address] [facility] 110 [place] [address] Marina Proctor PA [address] [place] [facility] 110 [place] [address] documented as of this encounter Visit Diagnoses Not on filedocumented in this encounter Care Teams Primary School Teacher Librarian Relationship Specialty Start Date End Date Malcolm Cid MD [address] [facility] 110 [place] [address] PCP - General Family Medicine 07/29/22 Malcolm Cid MD [address] [facility] 110 [place] [address] PCP - [facility] 05/30/22Wednesday, BREE Marquez [address] [facility] 110 [place] [address] Licensed Practical Nurse Family Medicine 06/04/23 Jayne Del Valle, RN Licensed Practical Nurse Family Medicine 04/07/2404/30 Merry Paz LPN 05/19/24 documented as of this encounter
--- OUTSIDE RECORDS SUMMARY | 2024-07-31 11:16 | XMS_ITS | Encounter Summary ---
Author Organization [facility] Address [address] [place] [address] Care Team Providers Care Assistant Associate Professor Name Role Phone Malcolm Cid MD Primary Care Provider [phone] Malcolm Cid MD Unavailable Wednesday, Alma AQUINON Unavailable [phone] Jayne Del Valle RN Unavailable [phone] Merry Paz DIRECTOR OF INFORMATICS Unavailable Unavailable Encounter Details Date Type Department Care Team (Late st Contact Info) Description 02/15/2023 Orders Only [facility] [address] [facility] [address] [place] [address] A, Unknown Practice [address] [place] [address] Social History Tobacco Use Types Packs/Day Years [...] AM EDT Office Visit [facility] 112 [facility] 110 [place] [address] Marina Proctor PA [address] [place] [facility] 110 [place] [address] documented as of this encounter Procedures Procedure Name Priority Date/Time Associated Diagnosis Comments XR KNEE 4+ VIEWS RIGHT Routine 02/14/2023 10:24 AM EST documented in this encounter Results * XR knee 4+ views right (02/14/2023 10:24 AM EST) Anatomical Region Laterality Modality Lower Extremities, Knee Right Radiogra phic Imaging us Unknown Practice A IMG XR PROCEDURES Final Resul t documented in this encounter Visit Diagnoses Not on filedocumented in this encounter Care Teams Assistant Associate Professor Relationship Specialty Start Date End Date Malcolm Cid MD [address] [facility] [address] [place] [address] PCP - General Family Medicine 07/29/22 Malcolm Cid MD [address] [facility] 110 [place] [address] PCP - [facility] 05/30/22Wednesday, BREE Marquez [address] [place] [address] Licensed Practical Nurse Family Medicine 06/04/23 Jayne Del Valle, RN Licensed Practical Nurse Family Medicine 04/07/2404/30 Merry Paz LPN 05/19/24 documented as of this encounter
--- OUTSIDE RECORDS SUMMARY | 2024-07-31 11:16 | XMS_ITS | Encounter Summary ---
Author Organization [facility] Address [address] [place] [address] Care Team Providers Care Studio Receptionist Name Role Phone Malcolm Cid MD Primary Care Provider [phone] Malcolm Cid MD Unavailable Wednesday, Alma AQUINON Unavailable [phone] Jayne Del Valle RN Unavailable Merry Paz AIR CHIPPER Unavailable Unavailable Encounter Details Date Type Department Care Team (Late st Contact Info) Description 01/17/2024 Abstract [facility] 112 [facility] 110 [place] [address] Malcolm Cid MD 112 [facility] 110 [place], [place] [address] Social History Tobacco Use Types Packs/Day Years [...] How often do you attend chur or gnosticist services? More than 4 times per year [...] care, and heating? Not very hard 10/10/2023 [facility] [place] of Occupat ional Health - Occupational Stress [...] a skilled nursing (including now)? No 09/14/2022 Housing Stability Vital Sign Answer Sohail e Recorded In the last 12 months, was t here a time when you were not able to pay the mortgage or rent on time? Yes 10/10/2023 In the past 12 months, how m any times have you moved where you were living? 0 10/10/2023 At any time in the past 12 m [facility], were you homeless or living in a skilled nursing (including now)? No 10/10/2023 Sex and Gender [...] FM [address] [place] [address] [place] [address] Marina Proctor PA [address] [facility] 110 [place] [address] documented as of this encounter Visit Diagnoses Not on filedocumented in this encounter Care Teams Studio Receptionist Relationship Specialty Start Date End Date Malcolm Cid MD [address] [facility] [address] [place] [address] PCP - General Family Medicine 07/29/22 Malcolm Cid MD [address] [facility] [address] [place] [address] PCP - [facility] 05/30/22Wednesday, BREE Marquez [address] [place] [address] Licensed Practical Nurse Family Medicine 06/04/23 Jayne Dle Valle, RN Licensed Practical Nurse Family Medicine 04/07/2404/30 Merry Paz LPN 05/19/24 documented as of this encounter
--- OUTSIDE RECORDS SUMMARY | 2024-07-31 11:16 | XMS_ITS | Encounter Summary ---
Author Organization [facility] Address [address] [place] [address] Care Team Providers Care Senior Java Developer Name Role Phone Malcolm Cid MD Primary Care Provider [phone] Malcolm Cid MD Unavailable Wednesday, Alma AQUINON Unavailable [phone] Jayne Del Valle RN Unavailable [phone] Merry Paz SOLAR SALES REPRESENTATIVE AND ASSESSOR Unavailable Unavailable Encounter Details Date Type Department Care Team (Late st Contact Info) Description 02/17/2023 Abstract [facility] [address] [facility] 110 [place] [address] Malcolm Cid MD 112 [facility] 110 [place], [place] [address] Social History Tobacco Use Types Packs/Day Years [...] 08/07/2024 11:00 AM EDT Office Visit [facility] [address] [facility] 110 [place] [address] Marina Proctor PA [address] [facility] 110 [place] [address] documented as of this encounter Visit Diagnoses Not on filedocumented in this encounter Care Teams Senior Java Developer Relationship Specialty Start Date End Date Malcoml Cid MD [address] [facility] 110 [place] [address] PCP - General Family Medicine 07/29/22 Malcolm Cid MD [address] [facility] [address] [place] [address] PCP - [facility] 05/30/22Wednesday, BREE Marquez [address] [place] [address] Licensed Practical Nurse Family Medicine 06/04/23 Jayne Del Valle, DELMIS Licensed Practical Nurse Family Medicine 04/07/2404/30 Merry Paz LPN 05/19/24 documented as of this encounter
--- OUTSIDE RECORDS SUMMARY | 2024-07-31 11:16 | XMS_ITS | Encounter Summary ---
Author Organization [facility] Address [address] [place] [address] Care Team Providers Care Dramatic Reader Name Role Phone Malcolm Cid MD Primary Care Provider [phone] Source Comments In the event this information is protected by the Federal Confidentiality of Alcohol and Drug AbusePatient Records regulations: The Federal rules restrict any use of the information to criminally investigate or prosecute any alcohol or drug abuse patient.[facility] Encounter Details Date Type Department Care Team (Late st Contact Info) Description 09/15/2021 Patient Msg Rheumatology [address] [place], [place] [phone] [place] [address] [place] [address] Lab results/orders Social History Tobacco Use Types [...] 02/05/2020 Data from: https://www.neighborhoodatlas.[facility]/. Last address used for calculation Not on [...] 10/03/2024 8:00 AM EDT Office Visit Rheumatology [address] [place], [place] [address] [place] [address] [place], [place] [address] Return in about 9 months (around 10/03/2024). documented as of this encounter Visit Diagnoses Not on filedocumented in this encounter Care Teams Dramatic Reader Relationship Specialty Start Date End Date Malcolm Cid MD PCP - General Family Medicine 01/07/15 documented as of this encounter
--- OUTSIDE RECORDS SUMMARY | 2024-07-31 11:16 | XMS_ITS | Encounter Summary ---
Author Organization [facility] Address [address] [place] [address] Care Team Providers Care Foreign Trade Teacher Name Role Phone Malcolm Cid MD Primary Care Provider [phone] Malcolm Cid MD Unavailable Wednesday, Alma AQUINON Unavailable [phone] Jayne Del Valle RN Unavailable [phone] Merry Paz PEDIATRIC ASSOCIATE Unavailable Unavailable Encounter Details Date Type Department Care Team (Late st Contact Info) Description 02/15/2023 Abstract [facility] [address] [facility] 110 [place] [address] Malcolm Cid MD 112 [facility] 110 [place], [place] [address] Social History Tobacco Use Types Packs/Day Years [...] 08/07/2024 11:00 AM EDT Office Visit [facility] [address] [facility] 110 [place] [address] Marina Proctor PA [address] [facility] 110 [place] [address] documented as of this encounter Visit Diagnoses Not on filedocumented in this encounter Care Teams Foreign Trade Teacher Relationship Specialty Start Date End Date Malcolm Cid MD [address] [facility] 110 [place] [address] PCP - General Family Medicine 07/29/22 Malcolm Cid MD [address] [facility] [address] [place] [address] [address] - [facility] 05/30/22Wednesday, BREE Marquez [address] [place] [address] Licensed Practical Nurse Family Medicine 06/04/23 Jayne Del Valle, DELMIS Licensed Practical Nurse Family Medicine 04/07/2404/30 Merry Paz LPN 05/19/24 documented as of this encounter
--- OUTSIDE RECORDS SUMMARY | 2024-07-31 11:16 | XMS_ITS | Encounter Summary ---
Author Organization [facility] Address [address] [place] [address] Care Team Providers Care Kindergarten Assistant Name Role Phone Malcolm Cid MD Primary Care Provider [phone] Source Comments In the event this information is protected by the Federal Confidentiality of Alcohol and Drug AbusePatient Records regulations: The Federal rules restrict any use of the information to criminally investigate or prosecute any alcohol or drug abuse patient.[facility] Encounter Details Date Type Department Care Team (Late st Contact Info) Description 12/02/2020 Patient Msg Rheumatology [address] [place], [place] [phone] [place] [address] [place] [address] Lab reminder Social History Tobacco Use Types Packs/Day Years Used Date Smoking Tobacco: Never Smokeless Tobacco: Current Chew PHQ-2 Answer Date Recorded PHQ-2 score 3 08/19/2020 Area Deprivation Index Answer Date Adis rded National Score (1-100), lower number is lower ri sk Not on file 02/05/2020 State Score (1-10), lower number is lower risk N ot on file 02/05/2020 Data from: https://www.neighborhoodatlas.[facility]/. Last address used for calculation [...] 10/03/2024 8:00 AM EDT Office Visit Rheumatology [address] [place], [place] [address] [place] [address] [place], [place] [address] Return in about 9 months (around 10/03/2024). documented as of this encounter Visit Diagnoses Not on filedocumented in this encounter Care Teams Kindergarten Assistant Relationship Specialty Start Date End Date Malcolm Cid MD PCP - General Family Medicine 01/07/15 documented as of this encounter
--- OUTSIDE RECORDS SUMMARY | 2024-07-31 11:16 | XMS_ITS | Encounter Summary ---
Author Organization [facility] Address [address] [place] [address] Care Team Providers Care Media Law Faculty Member Name Role Phone Malcolm Cid MD Primary Care Provider [phone] Malcolm Cid MD Unavailable Wednesday, Alma AQUINON Unavailable [phone] Jayne Del Valle RN Unavailable Merry Paz FARM FIELD MANAGER Unavailable Unavailable Encounter Details Date Type Department Care Team (Late st Contact Info) Description 01/11/2023 Abstract [facility] [address] [facility] 110 [place] [address] Malcolm Cid MD 112 [facility] 110 [place], [place] [address] Social History Tobacco Use Types Packs/Day Years [...] care, and heating? Not very hard 09/14/2022 [facility] of Occupat ional Health - [...] EDT Office Visit [facility] 112 [facility] 110 [place] [address] Marina Proctor PA [address] [place] [facility] [address] [place] [address] documented as of this encounter Visit Diagnoses Not on filedocumented in this encounter Care Teams Media Law Faculty Member Relationship Specialty Start Date End Date Malcolm Cid MD [address] [facility] [address] [place] [address] PCP - General Family Medicine 07/29/22 Malcolm Cid MD [address] [facility] [address] [place] [address] PCP - [facility] 05/30/22Wednesday, BREE Marquez [address] [facility] 110 [place] [address] Licensed Practical Nurse Family Medicine 06/04/23 Jayne Del Valle, RN Licensed Practical Nurse Family Medicine 04/07/2404/30 Merry Paz LPN 05/19/24 documented as of this encounter
--- OUTSIDE RECORDS SUMMARY | 2024-07-31 11:16 | XMS_ITS | Encounter Summary ---
Author Organization [facility] Address [address] [place] [address] Care Team Providers Care Shop Repairer Name Role Phone Malcolm Cid MD Primary Care Provider [phone] Malcolm Cid MD Unavailable Wednesday, Alma AQUINON Unavailable Jayne Del Valle RN Unavailable [phone] Merry Paz DOWNSTAIRS MAID Unavailable Unavailable Encounter Details Date Type Department Care Team (Late st Contact Info) Description 12/03/2022 Orders Only [facility] [address] [place] [address] A, Unknown Practice [address] [place] [address] Social History Tobacco Use Types Packs/Day Years [...] often do you attend chur ch or restorationist services? More than 4 times [...] care, and heating? Not very hard 09/14/2022 [facility] of Occupat ionoh Health - Occupational Stress Questionnaire Answer Date [...] 11:00 AM EDT Office Visit [facility] [address] [facility] 110 [place] [address] Marina Proctor PA [address] [facility] 110 [place] [address] documented as of this encounter Procedures Procedure Name Priority Date/Time Associated Diagnosis Comments ELECTROCARDIOGRAM REPORT Routine 023 8:39 AM EDT documented in this encounter Results * Electrocardiogram Report (12/02/2022 8:39 AM EDT) us Unknown Practice A IN CLINIC/BEDSIDE ORDERABLES Final Result documented in this encounter Visit Diagnoses Not on filedocumented in this encounter Care Teams Shop Repairer Relationship Specialty Start Date End Date Malcolm Cid MD [address] [facility] 110 [place] [address] PCP - General Family Medicine 07/29/22 Malcolm Cid MD [address] [place] [address] PCP - [facility] 05/30/22Wednesday, BREE Marquez [address] [place] [address] Licensed Practical Nurse Family Medicine 06/04/23 Jayne Del Valle, RN Licensed Practical Nurse Family Medicine 04/07/2404/30 Merry Paz LPN 05/19/24 documented as of this encounter
--- OUTSIDE RECORDS SUMMARY | 2024-07-31 11:16 | XMS_ITS | Encounter Summary ---
Author Organization [facility] Address [address] [place] [address] Care Team Providers Care Pcb Design Engineer Name Role Phone Malcolm Cid MD Primary Care Provider [phone] Malcolm Cid MD Unavailable Monday, Alma AQUINON Unavailable [phone] Jayne Del Valle RN Unavailable [phone] Merry Paz LPN Unavailable Unavailable Encounter [...] care, and heating? Not very hard 10/10/2023 [facility] of Occupat ional Health [...] EDT Office Visit [facility] [address] [facility] 110 [place] [address] Marina Proctor PA 112 [facility] 110 [place] [address] documented as of this encounter Procedures Procedure [...] progressed from 05/04/2017 Mild right foot osteoarthritis. System Auditor: PSCB Transcribe Date/Time: Jan 04 2024 10:13A Dictated by : UMA ROGERS MD This examination was interpreted and the report reviewed and electronically signed by: CHELSEA REEVES MD on Jan 04 2024 3:12PM EST [id number]^SI^ACN Procedure Note Radiology, Radiologist, - 01/04/2024 * [...] progressed from 05/04/2017 Mild right foot osteoarthritis. System Auditor: ADELA Transcribe Date/Time: Jan 04 2024 10:13A Dictated by : UMA ROGERS MD This examination was interpreted and the report reviewed and electronically signed by: CHELSEA REEVES MD on Jan 04 2024 3:12PM EST [id number]^[id number]^SI^ACN us Generic External Data Provider [facility] Final Result documented in this encounter Visit Diagnoses Not on filedocumented in this encounter Care Teams Pcb Design Engineer Relationship Specialty Start Date End Date Malcolm Cid MD [address] [facility] 110 [place] [address] PCP - General Family Medicine 07/29/22 Malcolm Cid MD [address] [facility] 110 [place] [address] PCP - [facility] 05/30/22Wednesday, BREE Marquez 112 [facility] [address] [place] [address] Licensed Practical Nurse Family Medicine 06/04/23 Jayne Del Valle, DELMIS Licensed Practical Nurse Family Medicine 04/07/2404/30 Merry Paz LPN 05/19/24 documented as of this encounter
--- OUTSIDE RECORDS SUMMARY | 2024-07-31 11:16 | XMS_ITS | Encounter Summary ---
Author Organization [facility] Address [address] [place] [address] Care Team Providers Care Advertising Copywriter Name Role Phone Malcolm Cid MD Primary Care Provider [phone] Malcolm Cid MD Unavailable Wednesday, Alma AQUINON Unavailable [phone] Jayne Del Valle RN Unavailable [phone] Merry Paz CAFETERIA MONITOR Unavailable Unavailable Encounter Details Date Type Department Care Team (Late st Contact Info) Description 02/15/2023 Abstract [facility] [address] [facility] 110 [place] [address] Malcolm Cid MD 112 [facility] 110 [place], [place] [address] Social History Tobacco Use Types Packs/Day Years [...] How often do you attend chur or jewish services? More than 4 times per year [...] 08/07/2024 11:00 AM EDT Office Visit [facility] [address] [facility] 110 [place] [address] Marina Proctor PA [address] [facility] 110 [place] [address] documented as of this encounter Visit Diagnoses Not on filedocumented in this encounter Care Teams Advertising Copywriter Relationship Specialty Start Date End Date Malcolm Cid MD [address] [facility] 110 [place] [address] PCP - General Family Medicine 07/29/22 Malcolm Cid MD [address] [place] [address] PCP - [facility] 05/30/22Wednesday, BREE Marquez [address] [place] [address] Licensed Practical Nurse Family Medicine 06/04/23 Jayne Del Valle, DELMIS Licensed Practical Nurse Family Medicine 04/07/2404/30 Merry Paz LPN 05/19/24 documented as of this encounter
--- OUTSIDE RECORDS SUMMARY | 2024-07-31 11:16 | XMS_ITS | Encounter Summary ---
Author Organization [facility] Address [address] [place] [address] Care Team Providers Care Final Operations Technician Name Role Phone Malcolm Cid MD Primary Care Provider [phone] Malcolm Cid MD Unavailable Wednesday, Alma DIRECTOR CLINICAL OPERATIONS Unavailable [phone] Jayne Del Valle RN Unavailable [phone] Merry Paz DIRECTOR CLINICAL OPERATIONS Unavailable Unavailable Encounter Details Date Type Department Care Team (Late st Contact Info) Description 08/10/2022 Orders Only [facility] [address] [facility] 110 [place] [address] Stephen Shields MD [address] [facility] 110 [place] [address] Social History Tobacco Use Types Packs/Day Years [...] FM [address] [place] [address] Marina Proctor, PA [address] [place] [address] documented as of this encounter Procedures Procedure [...] filedocumented in this encounter Care Teams Final Operations Technician Relationship Specialty Start Date End Date Malcolm Cid MD [address] [place] [address] PCP - General Family Medicine 07/29/22 Malcolm Cid MD [address] [place] [address] PCP - [facility] 05/30/22Wednesday, BREE Marquez [address] [place] [address] Licensed Practical Nurse Family Medicine 06/04/23 Jayne Del Valle, RN Licensed Practical Nurse Family Medicine 04/07/2404/30 Merry Paz LPN 05/19/24 documented as of this encounter
--- OUTSIDE RECORDS SUMMARY | 2024-07-31 11:16 | XMS_ITS | Encounter Summary ---
Author Organization [facility] Address [address] [place] [address] Care Team Providers Care Credit Review Manager Name Role Phone Malcolm Cid MD Primary Care Provider [phone] Source Comments In the event this information is protected by the Federal Confidentiality of Alcohol and Drug AbusePatient Records regulations: The Federal rules restrict any use of the information to criminally investigate or prosecute any alcohol or drug abuse patient.[facility] Encounter Details Date Type Department Care Team (Late st Contact Info) Description 01/01/2022 Patient Msg Rheumatology [address] [place], [place] [address] [place] [address] [place] [address] Previsit lab reminder Social History Tobacco Use Types Packs/Day Years Used Date Smoking Tobacco: Never Smokeless Tobacco: Current Chew PHQ-2 Answer Date Recorded PHQ-2 score 3 08/19/2020 Area Deprivation Index Answer Date Adis rded National Score (1-100), lower number is lower ri sk Not on file 02/05/2020 State Score (1-10), lower number is lower risk N ot on file 02/05/2020 Data from: https://www.neighborhoodatlas.[facility]/. Last address used for calculation Not [...] 10/03/2024 8:00 AM EDT Office Visit Rheumatology [address] [place], [place] [address] [place] [address] [place], [place] [address] Return in about 9 months (around 10/03/2024). documented as of this encounter Visit Diagnoses Not on filedocumented in this encounter Care Teams Credit Review Manager Relationship Specialty Start Date End Date Malcolm Cid MD PCP - General Family Medicine 01/07/15 documented as of this encounter
--- OUTSIDE RECORDS SUMMARY | 2024-07-31 11:16 | XMS_ITS | Encounter Summary ---
Author Organization [facility] Address [address] [place] [address] Care Team Providers Care Wireless Sales Consultant Name Role Phone Malcolm Cid MD Primary Care Provider [phone] Malcolm Cid MD Unavailable Wednesday, Alma AQUINON Unavailable [phone] Jayne Del Valle RN Unavailable Merry Paz FBI FIELD AGENT Unavailable Unavailable Encounter Details Date Type Department Care Team (Late st Contact Info) Description 12/16/2022 Abstract [facility] [address] [facility] 110 [place] [address] Marina Proctor, PA 112 [facility] 110 [place], [place] [id number] Social History Tobacco Use Types Packs/Day Years [...] Visit [facility] [address] [facility] 110 [place] [address] Marina Proctor PA [address] [facility] 110 [place] [address] documented as of this encounter Visit Diagnoses Not on filedocumented in this encounter Care Teams Wireless Sales Consultant Relationship Specialty Start Date End Date Malcolm Cid MD [address] [facility] 110 [place] [address] PCP - General Family Medicine 07/29/22 Malcolm Cid MD [address] [place] [address] PCP - [facility] 05/30/22Wednesday, BREE Marquez [address] [place] [address] Licensed Practical Nurse Family Medicine 06/04/23 Jayne Del Valle, RN Licensed Practical Nurse Family Medicine 04/07/2404/30 Merry Paz LPN 05/19/24 documented as of this encounter
--- OUTSIDE RECORDS SUMMARY | 2024-07-31 11:16 | XMS_ITS | Encounter Summary ---
Author Organization [facility] Address [address] [place] [address] Care Team Providers Care Technical Project Manager Name Role Phone Malcolm Cid MD Primary Care Provider [phone] Source Comments In the event this information is protected by the Federal Confidentiality of Alcohol and Drug AbusePatient Records regulations: The Federal rules restrict any use of the information to criminally investigate or prosecute any alcohol or drug abuse patient.[facility] Encounter Details Date Type Department Care Team (Late st Contact Info) Description 12/06/2017 Patient Msg Medical Records [address] [place] [address] Provider, Ccf Labs needed for Dr. Castro [...] 10/03/2024 8:00 AM EDT Office Visit Rheumatology [address] [place] [address] [place] [address] [place] [address] Return in about 9 months (around 10/03/2024). documented as of this encounter Visit Diagnoses Not on filedocumented in this encounter Care Teams Technical Project Manager Relationship Specialty Start Date End Date Malcolm Cid MD PCP - General Family Medicine 01/07/15 documented as of this encounter
--- OUTSIDE RECORDS SUMMARY | 2024-07-31 11:16 | XMS_ITS | Encounter Summary ---
Author Organization [facility] Address [address] [place] [address] Care Team Providers Care Ceiling Insulation Blower Name Role Phone Malcolm Cid MD Primary Care Provider [phone] Source Comments In the event this information is protected by the Federal Confidentiality of Alcohol and Drug AbusePatient Records regulations: The Federal rules restrict any use of the information to criminally investigate or prosecute any alcohol or drug abuse patient.[facility] Encounter Details Date Type Department Care Team (Late st Contact Info) Description 07/29/2017 Patient Msg Neurology [address] [place] [address] Provider, Ccf Follow up - [...] 10/03/2024 8:00 AM EDT Office Visit Rheumatology [address] [place] [address] [place] [address] [place] [address] Return in about 9 months (around 10/03/2024). documented as of this encounter Visit Diagnoses Not on filedocumented in this encounter Care Teams Ceiling Insulation Blower Relationship Specialty Start Date End Date Malcolm Cid MD PCP - General Family Medicine 01/07/15 documented as of this encounter
--- OUTSIDE RECORDS SUMMARY | 2024-07-31 11:16 | XMS_ITS | Encounter Summary ---
Author Organization [facility] Address [address] [place] [address] Care Team Providers Care Office Automation Clerk Name Role Phone Malcolm Sears MD Primary Care Provider [phone] Malcolm Sears MD Unavailable Wednesday, Alma AQUINON Unavailable [phone] Jayne Del Valle RN Unavailable [phone] Merry Paz EYELET MACHINE OPERATOR Unavailable Unavailable Reason for Visit * Reason Onset Date Comments Med Refill 02/04/2024 Encounter Details Date Type Department Care Team (Late st Contact Info) Description 02/04/2024 Refill [facility] [address] [facility] 110 [place] [address] Marina Proctor, PA [address] [place] [address] 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 rheumatoid factor ([facility]) Social History Tobacco Use Types Packs/Day [...] week 10/10/2023 How often do you attend [facility] or cheondoism services? More than 4 times [...] care, and heating? Not very hard 10/10/2023 [facility] [place] of Occupat ional Health - Occupational Stress [...] in a intermediate (including now)? No 09/14/2022 Housing Stability Vital Sign Answer Sohail e Recorded In the last 12 months, was t here a time when you were not able to pay the mortgage or rent on time? Yes 10/10/2023 In the past 12 months, how m any times have you moved where you were living? 0 10/10/2023 At any time in the past 12 m [facility], were you homeless or living in a intermediate (including now)? No 10/10/2023 Sex and Gender [...] Visit [facility] [address] [facility] 110 [place] [address] Marina Proctor PA [address] [place] [address] documented as of this encounter Visit Diagnoses Diagnosis 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 rheumatoid factor ([facility]) documented in this encounter Care Teams Office Automation Clerk Relationship Specialty Start Date End Date Malcolm Sears MD [address] [place] [address] PCP - General Family Medicine 07/29/22 Malcolm Sears MD [address] [place] [address] PCP - [facility] 05/30/22Wednesday, BREE Marquez [address] [place] [address] Licensed Practical Nurse Family Medicine 06/04/23 Jayne Del Valle, RN Licensed Practical Nurse Family Medicine 04/07/2404/30 Merry Paz LPN 05/19/24 documented as of this encounter
--- OUTSIDE RECORDS SUMMARY | 2024-07-31 11:16 | XMS_ITS | Encounter Summary ---
Author Organization [facility] Address [address] [place] [address] Care Team Providers Care Office Worker Name Role Phone Malcolm Cid MD Primary Care Provider [phone] Malcolm Cid MD Unavailable Wednesday, Alma AQUINON Unavailable [phone] Jayne Del Valle RN Unavailable [phone] Merry Paz ACCOUNTS PAYABLE COORDINATOR Unavailable Unavailable Encounter Details Date Type Department Care Team (Late st Contact Info) Description 01/04/2024 Abstract [facility] [address] [facility] 110 [place] [address] Malcolm Cid MD 112 [facility] 110 [place], [place] [address] Social History Tobacco Use Types Packs/Day Years [...] week 10/10/2023 How often do you attend [facility] or mormonism services? More than 4 times per year [...] care, and heating? Not very hard 10/10/2023 [facility] [place] of Occupat ional Health - Occupational Stress [...] any time in the past 12 m [facility], were you homeless or living in [...] [address] [place] [address] Marina Proctor, PA [address] [place] [address] documented as of this encounter Visit Diagnoses Not on filedocumented in this encounter Care Teams Office Worker Relationship Specialty Start Date End Date Malcolm Cid MD [address] [facility] 110 [place] [address] PCP - General Family Medicine 07/29/22 Malcolm Cid MD [address] [facility] 110 [place] [address] PCP - [facility] 05/30/22Wednesday, BREE Marquez [address] [facility] 110 [place] [address] Licensed Practical Nurse Family Medicine 06/04/23 Jayne Del Valle, RN Licensed Practical Nurse Family Medicine 04/07/2404/30 Merry Paz LPN 05/19/24 documented as of this encounter
--- OUTSIDE RECORDS SUMMARY | 2024-07-31 11:16 | XMS_ITS | Encounter Summary ---
Author Organization [facility] Address [address] [place] [address] Care Team Providers Care Youth Director Name Role Phone Malcolm Cid MD Primary Care Provider [phone] Malcolm Cid MD Unavailable Wednesday, Alma AQUINON Unavailable [phone] Jayne Del Valle RN Unavailable [phone] Merry Paz ASBESTOS REMOVAL SUPERVISOR Unavailable Unavailable Encounter Details Date Type Department Care Team (Late st Contact Info) Description 09/29/2022 Orders Only [facility] [address] [place] [address] A, Unknown Practice [address] [place] [address] Social History Tobacco Use Types Packs/Day Years [...] often do you attend chur ch or scientologist services? More than 4 times per year 09/14/2022 Do you belong to any clubs o r organizations such as zoroastrianism groups, unions, fraternal [...] care, and heating? Not very hard 09/14/2022 [facility] of Occupat ionoh Health - Occupational Stress [...] 08/07/2024 11:00 AM EDT Office Visit [facility] [address] [facility] 110 [place] [address] Marina Proctor PA [address] [place] [address] [place] [facility] 110 [place] [address] documented as of this encounter Procedures Procedure [...] on filedocumented in this encounter Care Teams Youth Director Relationship Specialty Start Date End Date Malcolm Cid MD [address] [place] [address] PCP - General Family Medicine 07/29/22 Malcolm Cid MD [address] [place] [address] PCP - [facility] 05/30/22WednesdayAlma LPN [address] [place] [address] Licensed Practical Nurse Family Medicine 06/04/23 Jayne Del Valle, RN Licensed Practical Nurse Family Medicine 04/07/2404/30 Merry Paz LPN 05/19/24 documented as of this encounter
--- OUTSIDE RECORDS SUMMARY | 2024-07-31 11:16 | XMS_ITS | Encounter Summary ---
Author Organization [facility] Address [address] [place] [address] Care Team Providers Care Precision Millwright Name Role Phone Malcolm Cid MD Primary Care Provider [phone] Source Comments In the event this information is protected by the Federal Confidentiality of Alcohol and Drug AbusePatient Records regulations: The Federal rules restrict any use of the information to criminally investigate or prosecute any alcohol or drug abuse patient.[facility] Encounter Details Date Type Department Care Team (Late st Contact Info) Description 09/27/2017 Patient Msg Pediatric Rheumatology [address] [place], [place] [address] Provider, Ccf Regarding refill request Social History [...] 10/03/2024 8:00 AM EDT Office Visit Rheumatology [address] [place] [address] [place] [address] [place] [address] Return in about 9 months (around 10/03/2024). documented as of this encounter Visit Diagnoses Not on filedocumented in this encounter Care Teams Precision Millwright Relationship Specialty Start Date End Date Malcolm Cid MD PCP - General Family Medicine 01/07/15 documented as of this encounter
--- OUTSIDE RECORDS SUMMARY | 2024-07-31 11:16 | XMS_ITS | Encounter Summary ---
Author Organization [facility] Address [address] [place] [address] Care Team Providers Care Temperature Control Inspector Name Role Phone Malcolm Cid MD Primary Care Provider [phone] Source Comments In the event this information is protected by the Federal Confidentiality of Alcohol and Drug AbusePatient Records regulations: The Federal rules restrict any use of the information to criminally investigate or prosecute any alcohol or drug abuse patient.[facility] Encounter Details Date Type Department Care Team (Late st Contact Info) Description 09/28/2017 Patient Msg Medical Records [address] [place] [address] Provider, Ccf Oct lab reminder Social History [...] 10/03/2024 8:00 AM EDT Office Visit Rheumatology [address] [place] [address] [place] [address] [place] [address] Return in about 9 months (around 10/03/2024). documented as of this encounter Visit Diagnoses Not on filedocumented in this encounter Care Teams Temperature Control Inspector Relationship Specialty Start Date End Date Malcolm Cid MD PCP - General Family Medicine 01/07/15 documented as of this encounter
--- OUTSIDE RECORDS SUMMARY | 2024-07-31 11:16 | XMS_ITS | Encounter Summary ---
Author Organization [facility] Address [address] [place] [address] Care Team Providers Care Beverage Specialist Name Role Phone Malcolm Cid MD Primary Care Provider [phone] Malcolm Cid MD Unavailable Wednesday, Alma AQUINON Unavailable [phone] Jayne Del Valle RN Unavailable Merry Paz MANAGER OF MARKETING Unavailable Unavailable Encounter Details Date Type Department Care Team (Late st Contact Info) Description 02/16/2023 Abstract [facility] [address] [facility] 110 [place] [address] Malcolm Cid MD 112 [facility] 110 [place], [place] [address] Social History Tobacco Use Types Packs/Day Years [...] care, and heating? Not very hard 09/14/2022 [facility] of Occupat ional Health [...] 08/07/2024 11:00 AM EDT Office Visit [facility] [address] [facility] 110 [place] [address] Marina Proctor PA [address] [facility] 110 [place] [address] documented as of this encounter Visit Diagnoses Not on filedocumented in this encounter Care Teams Beverage Specialist Relationship Specialty Start Date End Date Malcolm Cid MD [address] [facility] 110 [place] [address] PCP - General Family Medicine 07/29/22 Malcolm Cid MD [address] [place] [address] PCP - [facility] 05/30/22Wednesday, BREE Marquez [address] [place] [address] Licensed Practical Nurse Family Medicine 06/04/23 Jayne Del Valle, DELMIS Licensed Practical Nurse Family Medicine 04/07/2404/30 Merry Paz LPN 05/19/24 documented as of this encounter
--- OUTSIDE RECORDS SUMMARY | 2024-07-31 11:16 | XMS_ITS | Encounter Summary ---
Author Organization [facility] Address [address] [place] [address] Care Team Providers Care Cloth Packer Name Role Phone Malcolm Cid MD Primary Care Provider [phone] Malcolm Cid MD Unavailable Wednesday, Alma AQUINON Unavailable [phone] Jayne Del Valle RN Unavailable Merry Paz AIR ROUTE TRAFFIC CONTROLLER Unavailable Unavailable Encounter Details Date Type Department Care Team (Late st Contact Info) Description 02/15/2023 Abstract [facility] [address] [facility] 110 [place] [id number] Malcolm Cid MD 112 [facility] 110 [place], [place] [id number] Social History Tobacco Use Types Packs/Day Years [...] 08/07/2024 11:00 AM EDT Office Visit [facility] [address] [facility] 110 [place] [address] Marina Proctor PA [address] [facility] 110 [place] [address] documented as of this encounter Visit Diagnoses Not on filedocumented in this encounter Care Teams Cloth Packer Relationship Specialty Start Date End Date Malcolm Cid MD [address] [facility] 110 [place] [address] PCP - General Family Medicine 07/29/22 Malcolm Cid MD [address] [place] [address] [place] [address] PCP - [facility] 05/30/22Wednesday, BREE Marquez [address] [place] [address] Licensed Practical Nurse Family Medicine 06/04/23 Jayne Del Valle, DELMIS Licensed Practical Nurse Family Medicine 04/07/2404/30 Merry Paz LPN 05/19/24 documented as of this encounter
--- OUTSIDE RECORDS SUMMARY | 2024-07-31 11:17 | XMS_ITS | Encounter Summary ---
Author Organization [facility] Address [address] [place] [address] Care Team Providers Care Aircraft Instrument Engineer Name Role Phone Malcolm Cid MD Primary Care Provider [phone] Malcolm Cid MD Unavailable Jayne Del Valle RN Unavailable [phone] Merry Paz LPN Unavailable Unavailable Encounter Details Date Type Department Care Team (Late st Contact Info) Description 05/18/2024 Abstract [facility] 112 [facility] 110 [place] [address] Malcolm Cid MD 112 [facility] 110 [place] [address] Social History Tobacco Use Types [...] Recorded Patient Health Questionnaire-2 Score 0 05/18/2024 [facility] [place] of Occupat ional Health - Occupational Stress [...] any time in the past 12 m [facility], were you homeless or living in a [...] Visit [facility] [address] [facility] 110 [place] [address] Marina Proctor PA [address] [place] [address] [place] [address] documented as of this encounter Visit Diagnoses Not on filedocumented in this encounter Care Teams Aircraft Instrument Engineer Relationship Specialty Start Date End Date Malcolm Cid MD [address] [facility] 110 [place] [address] PCP - General Family Medicine 07/29/22 Malcolm Cid MD [address] [facility] 110 [place] [address] PCP - [facility] 05/30/22 Jayne Del Valle, RN Licensed Practical Nurse Family Medicine 04/07/2404/30 Merry Paz LPN 05/19/24 documented as of this encounter
--- OUTSIDE RECORDS SUMMARY | 2024-07-31 11:17 | XMS_ITS | Encounter Summary ---
Author Organization [facility] Address [address] [place] [address] Care Team Providers Care Duty Officer Name Role Phone Malcolm Cid MD Primary Care Provider [phone] Malcolm Cid MD Unavailable Merry Paz LPN Unavailable Unavailable Reason for Visit * Reason Onset Date Comments Med Refill 07/26/2024 Encounter Details Date Type Department Care Team (Late st Contact Info) Description 07/26/2024 Refill [facility] [address] [facility] 110 [place] [address] Marina Proctor, PA 112 [facility] 110 [place], [place] [id number] 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 [...] Recorded Patient Health Questionnaire-2 Score 0 05/18/2024 [facility] [place] of Occupat ional Health - Occupational Stress [...] No 09/14/2022 Housing Stability Vital Sign Answer Oshail e Recorded In the last 12 months, was t here a time when you were not able to pay the mortgage or rent on time? Yes 10/10/2023 In the past 12 months, how m any times have you moved where you were living? 0 10/10/2023 At any time in the past 12 m [facility], were you homeless or living in a [...] Visit [facility] [address] [facility] 110 [place] [address] Marina Proctor PA [address] [facility] 110 [place] [address] documented as of this encounter Visit Diagnoses Diagnosis 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 rheumatoid factor (CMS/[facility]) documented in this encounter Care Teams Duty Officer Relationship Specialty Start Date End Date Malcolm Cid MD [address] [facility] 110 [place] [address] PCP - General Family Medicine 07/29/22 Malcolm Cid MD [address] [facility] 110 [place] [address] PCP - [facility] 05/30/22 Merry Paz LPN 05/19/24 documented as of this encounter
--- OUTSIDE RECORDS SUMMARY | 2024-07-31 11:17 | XMS_ITS | Clinical Summary ---
Author Organization [facility] Address [address] [place] [address] Care Team Providers Care Sole Cutter Name Role Phone Malcolm Cid MD Primary Care Provider [phone] Malcolm Cid MD Unavailable Merry Paz LPN [...] tablet 07/27/19 25 025 Active HYDROcodone-acet aminophen ([place]) 5-325 MG tabletIndication s:Rheumatoid arthritis involving multiple [...] 25 025 Discontinu ed(Reorder ) HYDROcodone-acet aminophen ([place]) 5-325 MG tabletIndication s: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) Take 1 tablet by mouth every 12 (twelve) hours if needed for severe pain for up to 5 days 10 tablet 07/04/19 25 025 Discontinu ed(Reorder ) HYDROcodone-acet aminophen ([place]) 5-325 MG tabletIndication s:Rheumatoid arthritis involving multiple [...] Refill [facility] [address] [place] [address] Nikky Jacobson 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) 07/26/2024 Refill [facility] [address] [place] [address] [place] [address] Marina Proctor PA 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) 07/20/2024 Refill [facility] [address] [facility] [address] [place] [address] Marina Proctor PA 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) 07/11/2024 Refill [facility] [address] [place] [address] [place] [address] Marina Proctor PA 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) 07/07/2024 Refill [facility] [address] [place] [address] [place] [address] Marina Proctor PA 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) 07/03/2024 Refill [facility] [address] [place] [address] [place] [address] Marina Proctor PA 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 rheumatoid factor ([facility]/HCC) 06/28/2024 [facility] [address] [place] [address] Merry Paz LPN 06/28/2024 Refill [facility] [address] [place] [address] [place] [address] Malcolm Cid MD 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 rheumatoid factor ([facility]) 06/27/2024 Telephone [facility] [address] [place] [address] Merry Paz LPN 06/27/2024 [facility] [address] [place] [address] Merry Paz LPN 06/26/2024 Abstract [facility] [address] [place] [address] Merry Paz, [facility] 06/26/2024 Refill [facility] [address] [place] [address] Marina Proctor PA 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) 06/26/2024 Telephone [facility] [address] [place] [address] [place] [address] Malcolm Cid MD Med Refill 06/26/2024 Refill [facility] [address] [place] [address] [place] [address] Marina Proctor PA 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) 06/20/2024 Patient Outreach [facility] [address] [place] [address] Merry Paz, LINK KNITTING MACHINE OPERATOR 06/19/2024 Refill [facility] [address] [place] [address] [place] [address] Marina Proctor PA 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) 06/12/2024 Refill [facility] [address] [place] [address] [place] [address] Marina Proctor PA 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) 06/05/2024 Refill [facility] [address] [place] [address] [place] [address] Marina Proctor PA 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) 06/05/2024 Refill [facility] [address] [place] [address] [place] [address] Malcolm Cid MD Other chronic pain 05/30/2024 Refill [facility] [address] [place] [address] [place] [address] Malcolm Cid MD 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) 05/29/2024 Refill [facility] [address] [place] [address] [place] [address] Marina Proctor PA 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) 05/23/2024 Refill [facility] [address] [facility] 110 [place] [address] Marina Proctor PA 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) 05/18/2024 9:00 AM EDT Office Visit [facility] [address] [facility] 110 [place] [address] Marina Proctor PA 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); 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); Anemia, unspecified type; Toe joint pain, left 05/18/2024 Abstract [facility] [address] [facility] 110 [place] [address] Malcolm Cid MD 05/18/2024 Abstract [facility] [address] [facility] 110 [place] [address] Malcolm Cid MD 05/18/2024 Clinisync Result Encounter [facility] External Department Unsolicited Marina Proctor PA 05/18/2024 Bamboo flowsheet [facility] [address] [facility] 110 [place] [address] Marina Proctor PA 05/18/2024 Travel 05/16/2024 Refill [facility] [address] [facility] 110 [place] [address] Marina Proctor PA Abscess of right index finger 05/16/2024 Refill [facility] [address] [place] [address] Malcolm Cid MD 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 rheumatoid factor ([facility]/HCC) 05/10/2024 Refill [facility] [address] [facility] 110 [place] [address] Marina Proctor PA Abscess of right index finger 05/02/2024 Refill [facility] [address] [facility] [address] [place] [address] Malcolm Cid MD 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 rheumatoid factor ([facility]) from Last 3 Months Immunizations Immunization Administration [...] often do you attend chur ch or christianity services? More than 4 times [...] Recorded Patient Health Questionnaire-2 Score 0 05/18/2024 [facility] [place] of Occupat ional Health - Occupational Stress [...] any time in the past 12 m [facility], were you homeless or living in a [...] 05/18/2024 9:00 AM EDT Plan of Treatment Upcoming Encounters Date Type Department Care Team (Late st Contact Info) Description 08/07/2024 11:00 AM EDT Office Visit [facility] [address] [facility] 110 [place] [address] Marina Proctor PA [address] [facility] 110 [place] [address] Health Maintenance Due Date Last Done Comments [...] ALL URIC ACID (05/18/2024 9:47 AM EDT) URIC ACID 9.2(H) 3.5 - 7.2 mg/dL TB 05/18/2024 9:47 AM EDT 05/18/2024 9:50 AM EDT Narrative [facility] - 05/18/2024 10:51 AM EDT us Marina MARINELLI [facility] Final Result [facility] TB * (ABNORMAL) ALL SED RATE (05/18/2024 9:47 AM EDT) [facility] SED RATE 31(H) <=15 mm/hr TB 05/18/2024 9:47 AM EDT 05/18/2024 9:50 AM EDT Narrative CL[facility] - 05/18/2024 11:06 AM EDT Marina MARINELLI CL[facility] Final Result Performing Organization Address City/[facility]/ZIP Co de Phone Number [facility] * (ABNORMAL) ALL CBC WITH AUTO DIFF (05/18/2024 9:47 AM EDT) [facility] WBC 8.4 4.0 - 11.0 10 3/uL [facility] TB RBC 4.62(L) 4.70 - 6.10 10 6/uL [facility] TB HGB 13.6(L) 14.0 - 18.0 g/dL TB TB HCT 40.4(L) 42.0 - 54.0 % TB TB MCV 87.4 80.0 - 94.0 fL TB TB MCH 29.4 25.9 - 34.0 pg TBH TB MCHC 33.7 29.9 - 35.2 g/dL TB TB RDW 13.0 11.0 - 15.0 % TB TB PLT 329 150 - 450 10 3/uL TB TB MPV 10.5 9.5 - 13.5 fL TB NEUTROPHILS PERCENT AUTO 52.4 43.0 - 75.0 % TBH LYMPHOCYTES PERCENT AUTO 37.1 20.5 - 60.0 % TBH MONOCYTES PERCENT AUTO 9.6 1.7 - 12.0 % TBH TBH EO % 0.5(L) 0.9 - 7.0 % TBH BASOPHILS PERCENT AUTO 0.2 0.2 - 2.0 % TB IMMATURE GRANULOCYTES PCT AUTO 0.2 0.0 - 0.5 % TB NEUTROPHILS ABSOLUTE AUTO 4.4 1.4 - 6.5 [...] Narrative CLINISYNC - 05/18/2024 10:12 AM EDT Marina MARINELLI CLINISYNC Final Result [facility]IS[facility]NC TBH * ALL C REACTIVE PROTEIN (05/18/2024 9:47 AM EDT) C REACTIVE PROTEIN <0.50 <=0.50 mg/dL TBH 05/18/2024 9:47 AM EDT 05/18/2024 9:50 AM EDT Narrative CLINISYNC - 05/18/2024 10:51 AM EDT Marina MARINELLI CLIN[facility] Final Result CLINIS[facility]NC [facility]H from Last 3 Months Insurance [employer] Care Teams Sole Cutter Relationship Specialty Start Date End Date Malcolm Cid MD [address] [facility] 110 [place] [address] PCP - General Family Medicine 07/29/22 Malcolm Cid MD [address] [facility] 110 [place] [address] PCP - [facility] 05/30/22 Merry Paz LPN 05/19/24
--- OUTSIDE RECORDS SUMMARY | 2024-07-31 11:17 | XMS_ITS | Encounter Summary ---
Author Organization [facility] Address [address] [place] [address] Care Team Providers Care Spun Paste Machine Operator Name Role Phone Malcolm Cid MD Primary Care Provider [phone] Malcolm Cid MD Unavailable Merry Paz LPN Unavailable Unavailable Reason for Visit * Reason Onset Date Comments Med Refill 07/26/2024 Encounter Details Date Type Department Care Team (Late st Contact Info) Description 07/26/2024 Refill [facility] [address] [place] [address] Nikky Jacobson 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 rheumatoid factor ([facility]) Social History Tobacco Use Types [...] any clubs o r organizations such as cheondoism groups, unions, fraternal [...] Recorded Patient Health Questionnaire-2 Score 0 05/18/2024 [facility] [place] of Occupat ional Health - Occupational Stress [...] Office Visit [facility] [address] [facility] 110 [place] [address] Marina Proctor PA [address] [facility] 110 [place] [address] documented as of this encounter Visit Diagnoses Diagnosis 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 rheumatoid factor (CMS/[facility]) documented in this encounter Care Teams Spun Paste Machine Operator Relationship Specialty Start Date End Date Malcolm Cid MD [address] [place] [facility] 110 [place] [address] PCP - General Family Medicine 07/29/22 Malcolm Cid MD [address] [facility] [facility] 110 [place] [address] PCP - [facility] 05/30/22 Merry Paz LPN 05/19/24 documented as of this encounter
--- OUTSIDE RECORDS SUMMARY | 2024-07-31 11:17 | XMS_ITS | Encounter Summary ---
Author Organization [facility] Address [address] [place] [address] Care Team Providers Care Apparel Manufacture Instructor Name Role Phone Malcolm Cid MD Primary Care Provider [phone] Malcolm Cid MD Unavailable Merry Paz LPN Unavailable Unavailable Encounter Details Date Type Department Care Team (Late st Contact Info) Description 06/26/2024 Abstract [facility] [address] [place] [address] Merry Paz LPN Social History Tobacco Use [...] Recorded Patient Health Questionnaire-2 Score 0 05/18/2024 [facility] [place] of Occupat ional Health - Occupational Stress [...] any time in the past 12 m [facility], were you homeless or living in a [...] 08/07/2024 11:00 AM EDT Office Visit [facility] 112 [facility] 110 [place] [address] Marina Proctor PA [address] [place] [address] [address] documented as of this encounter Visit Diagnoses Not on filedocumented in this encounter Care Teams Apparel Manufacture Instructor Relationship Specialty Start Date End Date Malcolm Cid MD [address] [place] [address] [address] PCP - General Family Medicine 07/29/22 Malcolm Cid MD [address] [place] [address] [address] PCP - [facility] 05/30/22 Merry Paz LPN 05/19/24 documented as of this encounter
--- OUTSIDE RECORDS SUMMARY | 2024-07-31 11:17 | XMS_ITS | Encounter Summary ---
Author Organization [facility] Address [address] [place] [address] Care Team Providers Care Equipment Planner Name Role Phone Malcolm Cid MD Primary Care Provider [phone] Malcolm Cid MD Unavailable Merry Paz LPN Unavailable Unavailable Reason for Visit * Reason Onset Date Comments Med Refill 06/26/2024 Encounter Details Date Type Department Care Team (Late st Contact Info) Description 06/26/2024 Refill [facility] [address] [facility] 110 [place] [address] Marina Proctor, PA [address] [place] [facility] 110 [place], [place] [address] 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 [...] Recorded Patient Health Questionnaire-2 Score 0 05/18/2024 [facility] [place] of Occupat ional Health - Occupational Stress [...] any time in the past 12 m [facility], were you homeless or living in a [...] pain, I would recommend he see a Shirt Marker to discuss treatment options for the Rheumatoid [...] Visit [facility] [address] [facility] 110 [place] [address] Marina Proctor PA [address] [facility] 110 [place] [address] documented as of this encounter Visit Diagnoses Diagnosis 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 rheumatoid factor (CMS/[facility]) documented in this encounter Care Teams Equipment Planner Relationship Specialty Start Date End Date Malcolm Cid MD [address] [facility] 110 [place] [address] PCP - General Family Medicine 07/29/22 Malcolm Cid MD [address] [facility] 110 [place] [address] PCP - [facility] 05/30/22 Merry Paz LPN 05/19/24 documented as of this encounter
--- OUTSIDE RECORDS SUMMARY | 2024-07-31 11:17 | XMS_ITS | Encounter Summary ---
Author Organization [facility] Address [address] [place] [address] Care Team Providers Care Squeegee Tender Name Role Phone Malcolm Cid MD Primary Care Provider [phone] Malcolm Cid MD Unavailable Jayne Del Valle RN Unavailable [phone] Merry Paz LPN Unavailable Unavailable Encounter Details Date Type Department Care Team (Late st Contact Info) Description 05/18/2024 Abstract [facility] 112 [facility] 110 [place] [address] Malcolm Cid MD 112 [facility] 110 [place] [address] Social History Tobacco Use Types [...] any clubs o r organizations such as mandaeism groups, unions, fraternal [...] Recorded Patient Health Questionnaire-2 Score 0 05/18/2024 [facility] [place] of Occupat ional Health - Occupational Stress [...] in a alf (including now)? No 09/14/2022 Housing Stability Vital Sign Answer Sohail e Recorded In the last 12 months, was t here a time when you were not able to pay the mortgage or rent on time? Yes 10/10/2023 In the past 12 months, how m any times have you moved where you were living? 0 10/10/2023 At any time in the past 12 m [facility], were you homeless or living in a alf (including now)? No 10/10/2023 Sex and Gender [...] Visit [facility] [address] [facility] [address] [place] [address] Marina Proctor PA [address] [place] [address] [place] [address] documented as of this encounter Visit Diagnoses Not on filedocumented in this encounter Care Teams Squeegee Tender Relationship Specialty Start Date End Date Malcolm Cid MD [address] [facility] 110 [place] [address] PCP - General Family Medicine 07/29/22 Malcolm Cid MD [address] [facility] 110 [place] [address] PCP - [facility] 05/30/22 Jayne Del Valle, RN Licensed Practical Nurse Family Medicine 04/07/2404/30 Merry Paz LPN 05/19/24 documented as of this encounter
--- OUTSIDE RECORDS SUMMARY | 2024-07-31 11:17 | XMS_ITS | Encounter Summary ---
Author Organization [facility] Address [address] [place] [address] Care Team Providers Care Floor Steward/Stewardess Name Role Phone Malcolm Cid MD Primary Care Provider [phone] Malcolm Cid MD Unavailable Merry Paz LPN Unavailable Unavailable Reason for Visit * Reason Onset Date Comments Med Refill 07/20/2024 Encounter Details Date Type Department Care Team (Late st Contact Info) Description 07/20/2024 Refill [facility] [address] [facility] 110 [place] [address] Marina Proctor, PA [address] [facility] 110 [place], [place] [id number] 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 [...] 05/18/2024 [facility] [place] of Occupat ional Health - Occupational Stress [...] any time in the past 12 m [facility], were you homeless or living in [...] Patient was just weaned off of the [place]. He needs to use the Tramadol as [...] [address] [place] [address] [place] [address] Marina Proctor PA [address] [place] [address] [place] [address] documented as of this encounter Visit Diagnoses Diagnosis 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) documented in this encounter Care Teams Floor Steward/Stewardess Relationship Specialty Start Date End Date Malcolm Cid MD [address] [place] [address] [place] [address] PCP - General Family Medicine 07/29/22 Malcolm Cid MD [address] [place] [address] [place] [address] PCP - [facility] 05/30/22 Merry Paz LPN 05/19/24 documented as of this encounter
--- NOTE | 2024-08-01 13:19 | CM.DCFOLLOWU ---
1st attempt 08/01/24, no answer
--- NOTE | 2024-08-02 10:49 | CM.DCFOLLOWU ---
2nd attempt 08/02/24, no answer
--- OUTSIDE RECORDS SUMMARY | 2024-08-04 12:06 | XMS_ITS | Encounter Summary ---
Author Organization [facility] Address [address] [place] [address] Care Team Providers Care Turfgrass Management Professor Name Role Phone Malcolm Cid MD Primary Care Provider +1- [phone] Source Comments In the event this information is protected by the Federal Confidentiality of Alcohol and Drug AbusePatient Records regulations: The Federal rules restrict any use of the information to criminally investigate or prosecute any alcohol or drug abuse patient.[facility] Encounter Details Date Type Department Care Team (Late st Contact Info) Description 03/02/2018 Patient Msg Infectious Disease [address] [place], [place] [id number] Provider, Ccf Update rx's information Social History [...] 10/03/2024 8:00 AM EDT Office Visit Rheumatology [address] [place] [address] [place] [address] [place] [address] Return in about 9 months (around 10/03/2024). documented as of this encounter Visit Diagnoses Not on filedocumented in this encounter Care Teams Turfgrass Management Professor Relationship Specialty Start Date End Date Malcolm Cid MD PCP - General Family Medicine 01/07/15 documented as of this encounter
--- OUTSIDE RECORDS SUMMARY | 2024-08-04 12:06 | XMS_ITS | Encounter Summary ---
Author Organization [facility] Address [address] [place] [address] Care Team Providers Care Firmware Manager Name Role Phone Malcolm Cid MD Primary Care Provider [phone]- [phone] Source Comments In the event this information is protected by the Federal Confidentiality of Alcohol and Drug AbusePatient Records regulations: The Federal rules restrict any use of the information to criminally investigate or prosecute any alcohol or drug abuse patient.[facility] Encounter Details Date Type Department Care Team (Late st Contact Info) Description 03/10/2019 Patient Msg Rheumatology [address] [place], [place] [id number] [place] [address] [place], [place] [phone] Previsit lab reminder Social History Tobacco Use [...] No 04/26/2017 6:15 PM Oralia Hrutado RN * Are you blind or do [...] 10/03/2024 8:00 AM EDT Office Visit Rheumatology [address] [place] [address] [place] [address] [place] [address] Return in about 9 months (around 10/03/2024). documented as of this encounter Visit Diagnoses Not on filedocumented in this encounter Care Teams Firmware Manager Relationship Specialty Start Date End Date Malcolm Cid MD PCP - General Family Medicine 01/07/15 documented as of this encounter
--- OUTSIDE RECORDS SUMMARY | 2024-08-04 12:06 | XMS_ITS | Encounter Summary ---
Author Organization [facility] Address [address] [place] [address] Care Team Providers Care Custodial Manager Name Role Phone Malcolm Cid MD Primary Care Provider +1- [phone] Source Comments In the event this information is protected by the Federal Confidentiality of Alcohol and Drug AbusePatient Records regulations: The Federal rules restrict any use of the information to criminally investigate or prosecute any alcohol or drug abuse patient.[facility] Encounter Details Date Type Department Care Team (Late st Contact Info) Description 11/12/2019 Patient Msg Rheumatology [address] [place], [place] 1952011 [place] [address] [place], [place] [id number] Lab reminder Social History Tobacco Use Types [...] 10/03/2024 8:00 AM EDT Office Visit Rheumatology [address] [place] [address] [place] [address] [place] [address] Return in about 9 months (around 10/03/2024). documented as of this encounter Visit Diagnoses Not on filedocumented in this encounter Care Teams Custodial Manager Relationship Specialty Start Date End Date Malcolm Cid MD PCP - General Family Medicine 01/07/15 documented as of this encounter
--- OUTSIDE RECORDS SUMMARY | 2024-08-04 12:06 | XMS_ITS | Encounter Summary ---
Author Organization [facility] Address [address] [place] [address] Care Team Providers Care Brim Raiser Name Role Phone Malcolm Cid MD Primary Care Provider +1- [phone] Source Comments In the event this information is protected by the Federal Confidentiality of Alcohol and Drug AbusePatient Records regulations: The Federal rules restrict any use of the information to criminally investigate or prosecute any alcohol or drug abuse patient.[facility] Encounter Details Date Type Department Care Team (Late st Contact Info) Description 07/29/2018 Patient Msg Rheumatology [address] [place], [place] [id number] [place] [address] [place], [place] [phone] September lab reminder Social History Tobacco Use [...] 10/03/2024 8:00 AM EDT Office Visit Rheumatology [address] [place] [address] [place] [address] [place] [address] Return in about 9 months (around 10/03/2024). documented as of this encounter Visit Diagnoses Not on filedocumented in this encounter Care Teams Brim Raiser Relationship Specialty Start Date End Date Malcolm Cid MD PCP - General Family Medicine 01/07/15 documented as of this encounter
--- OUTSIDE RECORDS SUMMARY | 2024-08-04 12:06 | XMS_ITS ---
Author Organization [facility] Address [address] [place] [address] Care Team Providers Care Primary Education Professor Name Role Phone Malcolm Cid MD Primary Care Provider [phone] Malcolm Cid MD Unavailable Merry Paz LPN Unavailable Unavailable 30 Day Monitoring Program Status:Enrolled (Active) Start date:08/01/2024 Enrollment date:08/01/2024 Case Team Name Relationship Phone Jayne Del Valle RN(Responsible Staff) Registered Nurse [phone] Continued Care and Services Coordination
--- OUTSIDE RECORDS SUMMARY | 2024-08-04 12:06 | XMS_ITS | Encounter Summary ---
Author Organization [facility] Address [address] [place] [address] Care Team Providers Care Career Development Director Name Role Phone Malcolm Cid MD Primary Care Provider +1- [phone] Source Comments In the event this information is protected by the Federal Confidentiality of Alcohol and Drug AbusePatient Records regulations: The Federal rules restrict any use of the information to criminally investigate or prosecute any alcohol or drug abuse patient.[facility] Encounter Details Date Type Department Care Team (Late st Contact Info) Description 04/22/2018 Patient Msg Rheumatology [address] [place], [place] [phone] [place] [address] [place], [place] [phone] Previsit lab reminder Social History Tobacco Use [...] 10/03/2024 8:00 AM EDT Office Visit Rheumatology [address] [place] [address] [place] [address] [place] [address] Return in about 9 months (around 10/03/2024). documented as of this encounter Visit Diagnoses Not on filedocumented in this encounter Care Teams Career Development Director Relationship Specialty Start Date End Date Malcolm Cid MD PCP - General Family Medicine 01/07/15 documented as of this encounter
--- OUTSIDE RECORDS SUMMARY | 2024-08-04 12:06 | XMS_ITS | Encounter Summary ---
Author Organization [facility] Address [address] [place] [address] Care Team Providers Care Assistant Director Of Security Name Role Phone Malcolm Cid MD Primary Care Provider +1- [phone] Source Comments In the event this information is protected by the Federal Confidentiality of Alcohol and Drug AbusePatient Records regulations: The Federal rules restrict any use of the information to criminally investigate or prosecute any alcohol or drug abuse patient.[facility] Encounter Details Date Type Department Care Team (Late st Contact Info) Description 08/03/2018 Patient Msg Infectious Disease [address] [place], [place] [id number] Provider, Ccf RE: Dr Castro office- Message. [...] 10/03/2024 8:00 AM EDT Office Visit Rheumatology [address] [place] [address] [place] [address] [place] [address] Return in about 9 months (around 10/03/2024). documented as of this encounter Visit Diagnoses Not on filedocumented in this encounter Care Teams Assistant Director Of Security Relationship Specialty Start Date End Date Malcolm Cid MD PCP - General Family Medicine 01/07/15 documented as of this encounter
--- OUTSIDE RECORDS SUMMARY | 2024-08-04 12:06 | XMS_ITS | Encounter Summary ---
Author Organization [facility] Address [address] [place] [address] Care Team Providers Care Radiology Physician Assistant Name Role Phone Malcolm Cid MD Primary Care Provider +1- [phone] Source Comments In the event this information is protected by the Federal Confidentiality of Alcohol and Drug AbusePatient Records regulations: The Federal rules restrict any use of the information to criminally investigate or prosecute any alcohol or drug abuse patient.[facility] Encounter Details Date Type Department Care Team (Late st Contact Info) Description 07/05/2019 Patient Msg Rheumatology [address] [place] [address] Provider, Ccf Lab reminder from [...] 10/03/2024 8:00 AM EDT Office Visit Rheumatology [address] [place] [address] [place] [address] [place] [address] Return in about 9 months (around 10/03/2024). documented as of this encounter Visit Diagnoses Not on filedocumented in this encounter Care Teams Radiology Physician Assistant Relationship Specialty Start Date End Date Malcolm Cid MD PCP - General Family Medicine 01/07/15 documented as of this encounter
--- OUTSIDE RECORDS SUMMARY | 2024-08-04 12:06 | XMS_ITS ---
Author Organization [facility] Address [address] [place] [address] Care Team Providers Care Automatic Blocker Name Role Phone Malcolm Cid MD Primary Care Provider [phone] Malcolm Cid MD Unavailable Merry Paz LPN [...]
--- OUTSIDE RECORDS SUMMARY | 2024-08-04 12:06 | XMS_ITS ---
Author Organization [facility] Address [address] [place] [address] Care Team Providers Care Steno Pool Supervisor Name Role Phone Malcolm Cid MD Primary Care Provider [phone] Malcolm Cid MD Unavailable Merry Paz LPN Unavailable Unavailable Inpatient Discharge Transitional Care Management (TCM) Status:Closed (Closed) Start date:07/31/2024 Enrollment date:08/01/2024 Enrollment reason:Identified using hospital discharge data End date:08/01/2024 Close reason:Moved to 30 Day Monitoring Program Overview Patient discharged from [facility] on 07/31. Please contact for hospital AYSHA and schedule follow-up appointment within 7-14 days. Continued Care and Services Coordination
--- OUTSIDE RECORDS SUMMARY | 2024-08-04 12:06 | XMS_ITS | Encounter Summary ---
Author Organization [facility] Address [address] [place] [address] Care Team Providers Care Format Proofreader Name Role Phone Malcolm Cid MD Primary Care Provider [phone]- [phone] Source Comments In the event this information is protected by the Federal Confidentiality of Alcohol and Drug AbusePatient Records regulations: The Federal rules restrict any use of the information to criminally investigate or prosecute any alcohol or drug abuse patient.[facility] Encounter Details Date Type Department Care Team (Late st Contact Info) Description 02/27/2018 Patient Msg Rheumatology [address] [place] [address] [place] [address] [place], [place] [phone] March lab reminder Social History Tobacco Use [...] 10/03/2024 8:00 AM EDT Office Visit Rheumatology [address] [place] [address] [place] [address] [place] [address] Return in about 9 months (around 10/03/2024). documented as of this encounter Visit Diagnoses Not on filedocumented in this encounter Care Teams Format Proofreader Relationship Specialty Start Date End Date Malcolm Cid MD PCP - General Family Medicine 01/07/15 documented as of this encounter
--- OUTSIDE RECORDS SUMMARY | 2024-08-04 12:06 | XMS_ITS | Encounter Summary ---
Author Organization [facility] Address [address] [place] [address] Care Team Providers Care Retail Management Keyholder Name Role Phone Malcolm Cid MD Primary Care Provider [phone]- [phone] Source Comments In the event this information is protected by the Federal Confidentiality of Alcohol and Drug AbusePatient Records regulations: The Federal rules restrict any use of the information to criminally investigate or prosecute any alcohol or drug abuse patient.[facility] Encounter Details Date Type Department Care Team (Late st Contact Info) Description 02/11/2018 Patient Msg Rheumatology [address] [place] [address] Provider, Ccf response - Dr [...] 10/03/2024 8:00 AM EDT Office Visit Rheumatology [address] [place] [address] [place] [address] [place] [address] Return in about 9 months (around 10/03/2024). documented as of this encounter Visit Diagnoses Not on filedocumented in this encounter Care Teams Retail Management Keyholder Relationship Specialty Start Date End Date Malcolm Cid MD PCP - General Family Medicine 01/07/15 documented as of this encounter
--- OUTSIDE RECORDS SUMMARY | 2024-08-04 12:06 | XMS_ITS | Encounter Summary ---
Author Organization [facility] Address [address] [place] [address] Care Team Providers Care Timers Inspector Name Role Phone Malcolm Cid MD Primary Care Provider +1- [phone] Source Comments In the event this information is protected by the Federal Confidentiality of Alcohol and Drug AbusePatient Records regulations: The Federal rules restrict any use of the information to criminally investigate or prosecute any alcohol or drug abuse patient.[facility] Encounter Details Date Type Department Care Team (Late st Contact Info) Description 08/12/2018 Patient Msg Rheumatology [address] [place], [place] [id number] Provider, Ccf Dr Castro reply to your [...] 10/03/2024 8:00 AM EDT Office Visit Rheumatology [address] [place], [place] [phone] [place] [address] [place] [address] Return in about 9 months (around 10/03/2024). documented as of this encounter Visit Diagnoses Not on filedocumented in this encounter Care Teams Timers Inspector Relationship Specialty Start Date End Date Malcolm Cid MD PCP - General Family Medicine 01/07/15 documented as of this encounter
--- OUTSIDE RECORDS SUMMARY | 2024-08-04 12:06 | XMS_ITS | Encounter Summary ---
Author Organization [facility] Address [address] [place] [address] Care Team Providers Care Hydropulper Operator Name Role Phone Malcolm Cid MD Primary Care Provider +1- [phone] Source Comments In the event this information is protected by the Federal Confidentiality of Alcohol and Drug AbusePatient Records regulations: The Federal rules restrict any use of the information to criminally investigate or prosecute any alcohol or drug abuse patient.[facility] Encounter Details Date Type Department Care Team (Late st Contact Info) Description 02/12/2020 Patient Msg Rheumatology [address] [place], [place] [phone] [place] [address] [place] [address] Lab reminder Social History Tobacco Use Types Packs/Day Years Used Date Smoking Tobacco: Never Smokeless Tobacco: Current Chew PHQ-2 Answer Date Recorded PHQ-2 score 6 11/09/2019 Area Deprivation Index Answer Date Adis rded National Score (1-100), lower number is lower ri sk Not on file 02/05/2020 State Score (1-10), lower number is lower risk N ot on file 02/05/2020 Data from: https://www.neighborhoodatlas.medicine.[facility]/. Last address used for calculation [...] 10/03/2024 8:00 AM EDT Office Visit Rheumatology [address] [place], [place] [phone] [place] [address] [place], [place] [phone] Return in about 9 months (around 10/03/2024). documented as of this encounter Visit Diagnoses Not on filedocumented in this encounter Care Teams Hydropulper Operator Relationship Specialty Start Date End Date Malcolm Cid MD PCP - General Family Medicine 01/07/15 documented as of this encounter
--- OUTSIDE RECORDS SUMMARY | 2024-08-04 12:06 | XMS_ITS | Encounter Summary ---
Author Organization [facility] Address [address] [place] [address] Care Team Providers Care Polisher Sand Name Role Phone Malcolm Cid MD Primary Care Provider +1- [phone] Source Comments In the event this information is protected by the Federal Confidentiality of Alcohol and Drug AbusePatient Records regulations: The Federal rules restrict any use of the information to criminally investigate or prosecute any alcohol or drug abuse patient.[facility] Encounter Details Date Type Department Care Team (Late st Contact Info) Description 08/10/2018 Patient Msg Rheumatology [address] [place], [place] [phone] Provider, Ccf RE: Please reply back Social [...] 10/03/2024 8:00 AM EDT Office Visit Rheumatology [address] [place] [address] [place] [address] [place] [address] Return in about 9 months (around 10/03/2024). documented as of this encounter Visit Diagnoses Not on filedocumented in this encounter Care Teams Polisher Sand Relationship Specialty Start Date End Date Malcolm Cid MD PCP - General Family Medicine 01/07/15 documented as of this encounter
--- OUTSIDE RECORDS SUMMARY | 2024-08-04 12:06 | XMS_ITS | Encounter Summary ---
Author Organization [facility] Address [address] [place] [address] Care Team Providers Care Information Technology Assistant Name Role Phone Malcolm Cid MD Primary Care Provider +1- [phone] Source Comments In the event this information is protected by the Federal Confidentiality of Alcohol and Drug AbusePatient Records regulations: The Federal rules restrict any use of the information to criminally investigate or prosecute any alcohol or drug abuse patient.[facility] Encounter Details Date Type Department Care Team (Late st Contact Info) Description 08/12/2018 Patient Msg Rheumatology [address] [place], [place] [phone] Provider, Ccalvarado RE: Reply Social History Tobacco [...] 10/03/2024 8:00 AM EDT Office Visit Rheumatology [address] [place] [address] [place] [address] [place] [address] Return in about 9 months (around 10/03/2024). documented as of this encounter Visit Diagnoses Not on filedocumented in this encounter Care Teams Information Technology Assistant Relationship Specialty Start Date End Date Malcolm Cid MD PCP - General Family Medicine 01/07/15 documented as of this encounter
--- OUTSIDE RECORDS SUMMARY | 2024-08-04 12:07 | XMS_ITS | Encounter Summary ---
Author Organization [facility] Address [address] [place] [address] Care Team Providers Care Senior Operations Analyst Name Role Phone Malcolm Cid MD Primary Care Provider +1- [phone] Source Comments In the event this information is protected by the Federal Confidentiality of Alcohol and Drug AbusePatient Records regulations: The Federal rules restrict any use of the information to criminally investigate or prosecute any alcohol or drug abuse patient.[facility] Encounter Details Date Type Department Care Team (Late st Contact Info) Description 09/09/2018 Patient Msg Rheumatology [address] [place], [place] [phone] Provider, Ccf Reply Social History Tobacco Use [...] 10/03/2024 8:00 AM EDT Office Visit Rheumatology [address] [place] [address] [place] [address] [place] [address] Return in about 9 months (around 10/03/2024). documented as of this encounter Visit Diagnoses Not on filedocumented in this encounter Care Teams Senior Operations Analyst Relationship Specialty Start Date End Date Malcolm Cid MD PCP - General Family Medicine 01/07/15 documented as of this encounter
--- OUTSIDE RECORDS SUMMARY | 2024-08-04 12:07 | XMS_ITS | Encounter Summary ---
Author Organization [facility] Address [address] [place] [address] Care Team Providers Care Paint Roller Covermaker Name Role Phone Malcolm Cid MD Primary Care Provider [phone] Malcolm Cid MD Unavailable Wednesday, Alma AQUINON Unavailable [phone] Jayne Del Valle RN Unavailable Merry Paz [employer] Unavailable Unavailable Reason for Visit * Reason Onset Date Comments Med Refill 09/20/2023 Encounter Details Date Type Department Care Team (Late st Contact Info) Description 09/20/2023 Refill [facility] [address] [facility] [address] [place] [address] Marina Proctor, PA [address] [place] [address] 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 rheumatoid factor ([facility]/HCC) Social History Tobacco Use Types Packs/Day Years [...] How often do you attend chur or protestant services? More than 4 times per year 09/14/2022 Do you belong to any clubs o r organizations such as yarsanism groups, unions, fraternal or athletic groups, or [...] care, and heating? Not very hard 09/14/2022 [facility] [place] of Occupat ional Health - Occupational Stress [...] 11:00 AM EDT Office Visit [facility] [address] [facility] [address] [place] [address] Marina Proctor PA [address] [place] [address] documented as of this encounter Visit Diagnoses Diagnosis 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 rheumatoid factor ([facility]) documented in this encounter Care Teams Paint Roller Covermaker Relationship Specialty Start Date End Date Malcolm Cid MD [address] [place] [address] PCP - General Family Medicine 07/29/22 Malcolm Cid MD [address] [place] [address] PCP - [facility] 05/30/22Wednesday, BREE Marquez [address] [place] [address] Licensed Practical Nurse Family Medicine 06/04/23 Jayne Del Valle, RN Licensed Practical Nurse Family Medicine 04/07/2404/30 Merry Paz LPN 05/19/24 documented as of this encounter
--- OUTSIDE RECORDS SUMMARY | 2024-08-04 12:07 | XMS_ITS | Encounter Summary ---
Author Organization [facility] Address [address] [place] [address] Care Team Providers Care Tactical Response Group Officer Name Role Phone Malcolm Cid MD Primary Care Provider [phone] Malcolm Cid MD Unavailable Wednesday, Alma AQUINON Unavailable [phone] Jayne Del Valle RN Unavailable Merry Paz DIE REPAIRER TRIMMER DIES Unavailable Unavailable Encounter Details Date Type Department Care Team (Late st Contact Info) Description 07/06/2023 Abstract [facility] [address] [facility] [address] [place] [id number] Malcolm Cid MD 112 [facility] 110 [place], [place] [id number] Social History Tobacco Use Types Packs/Day Years [...] AM EDT Office Visit [facility] [address] [facility] [address] [place] [address] Marina Proctor PA [address] [place] [address] documented as of this encounter Visit Diagnoses Not on filedocumented in this encounter Care Teams Tactical Response Group Officer Relationship Specialty Start Date End Date Malcolm Cid MD [address] [place] [address] PCP - General Family Medicine 07/29/22 Malcolm Cid MD [address] [place] [address] PCP - [facility] 05/30/22Wednesday, BREE Marquez [address] [place] [address] Licensed Practical Nurse Family Medicine 06/04/23 Jayne Del Valle, DELMIS Licensed Practical Nurse Family Medicine 04/07/2404/30 Merry Paz LPN 05/19/24 documented as of this encounter
--- OUTSIDE RECORDS SUMMARY | 2024-08-04 12:07 | XMS_ITS | Encounter Summary ---
Author Organization [facility] Address [address] [place] [address] Care Team Providers Care Bolt Cutter Name Role Phone Malcolm Cid MD Primary Care Provider [phone] Malcolm Cid MD Unavailable Wednesday, Alma AQUINON Unavailable [phone] Jayne Del Valle RN Unavailable [phone] Merry Paz TAX INVESTIGATOR Unavailable Unavailable Encounter Details Date Type Department Care Team (Late st Contact Info) Description 06/09/2023 Orders Only [facility] [address] [place] [address] Unallocated, Noms Provider, [address] [place], [place] [id number] Social History Tobacco Use Types Packs/Day Years [...] 08/07/2024 11:00 AM EDT Office Visit [facility] [address] [facility] 110 [place] [address] Marina Proctor PA [address] [facility] 110 [place] [address] documented as of this encounter Procedures Procedure Name Priority Date/Time Associated Diagnosis Comments ELECTROCARDIOGRAM REPORT Routine 024 7:55 AM EDT documented in this encounter Results * Electrocardiogram Report (06/02/2023 7:55 AM EDT) us Noms Provider Unallocated MD IN CLINIC/BEDSIDE O RDERABLES Final Result documented in this encounter Visit Diagnoses Not on filedocumented in this encounter Care Teams Bolt Cutter Relationship Specialty Start Date End Date Malcolm Cid MD [address] [place] [address] PCP - General Family Medicine 07/29/22 Malcolm Cid MD [address] [place] [address] PCP - [facility] 05/30/22Wednesday, BREE Marquez [address] [place] [address] Licensed Practical Nurse Family Medicine 06/04/23 Jayne Del Valle, RN Licensed Practical Nurse Family Medicine 04/07/2404/30 Merry Paz LPN 05/19/24 documented as of this encounter
--- OUTSIDE RECORDS SUMMARY | 2024-08-04 12:07 | XMS_ITS | Clinical Summary ---
Author Organization [facility] Address [address] [place] [address] Care Team Providers Care Relay Shop Tester Name Role Phone Malcolm Cid MD Primary Care Provider [phone] Allergies No known active allergies Medications gabapentin [...] patient's age to complete this topic [facility] Sub[facility] Plan / Payer (Ef fective 2018-Present) Name:Kam Wrayn Relation to Subscriber:Self Name:Nick Wray Payer ID:Not on file Type:Not on file Address: [address] [employer] Advance Directives * Full Code (Latest Code Status on File) Date Activated Date Inactivated Comments 04/26/2015 11:58 PM 04/28/2015 7:53 PM * Full Code Date Activated Date Inactivated Comments 02/24/2015 8:57 PM 02/28/2015 4:48 PM Care Teams Relay Shop Tester Relationship Specialty Start Date End Date Malcolm Cid MD PCP - General 02/24/15
--- OUTSIDE RECORDS SUMMARY | 2024-08-04 12:07 | XMS_ITS | Encounter Summary ---
Author Organization [facility] Address [address] [place] [address] Care Team Providers Care Bark Grinder Name Role Phone Malcolm Cid MD Primary Care Provider [phone] Malcolm Cid MD Unavailable Wednesday, Alma AQUINON Unavailable [phone] Jayne Del Valle RN Unavailable Merry Paz SUPPORT SERVICES SPECIALIST Unavailable Unavailable Reason for Visit * Reason Onset Date Comments Med Refill 10/01/2023 Encounter Details Date Type Department Care Team (Late st Contact Info) Description 10/01/2023 Refill [facility] [address] [facility] 110 [place] [address] Marina Proctor, PA [address] [place] [address] 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 rheumatoid factor ([facility]/HCC) Social History Tobacco Use Types Packs/Day Years [...] care, and heating? Not very hard 09/14/2022 [facility] of Occupat ional Health - Occupational Stress [...] WAY [facility] 110 [place] [address] Marina Proctor PA [address] [facility] 110 [place] [address] documented as of this encounter Visit Diagnoses Diagnosis 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) documented in this encounter Care Teams Bark Grinder Relationship Specialty Start Date End Date Malcolm Cid MD [address] [facility] 110 [place] [address] PCP - General Family Medicine 07/29/22 Malcolm Cid MD [address] [facility] 110 [place] [address] PCP - [facility] 05/30/22Wednesday, BREE Marquez 112 [facility] 110 [place] [address] Licensed Practical Nurse Family Medicine 06/04/23 Jayne Del Valle, RN Licensed Practical Nurse Family Medicine 04/07/2404/30 Merry Paz LPN 05/19/24 documented as of this encounter
--- OUTSIDE RECORDS SUMMARY | 2024-08-04 12:07 | XMS_ITS | Encounter Summary ---
Author Organization [facility] Address [address] [place] [address] Care Team Providers Care Food Truck Caterer Name Role Phone Malcolm Cid MD Primary Care Provider [phone] Malcolm Cid MD Unavailable Wednesday, Alma AQUINON Unavailable [phone] Jayne Del Valle RN Unavailable Merry Paz PROJECT PLANNER Unavailable Unavailable Encounter Details Date Type Department Care Team (Late st Contact Info) Description 06/25/2023 Abstract [facility] [address] [facility] 110 [place] [address] Malcolm Cid MD 112 [facility] 110 [place], [place] [id number] Social History Tobacco Use Types Packs/Day Years [...] How often do you attend chur or congregational services? More than 4 times per year [...] 08/07/2024 11:00 AM EDT Office Visit [facility] [address] [facility] 110 [place] [address] Marina Proctor PA [address] [place] [address] documented as of this encounter Visit Diagnoses Not on filedocumented in this encounter Care Teams Food Truck Caterer Relationship Specialty Start Date End Date Malcolm Cid MD [address] [place] [address] PCP - General Family Medicine 07/29/22 Malcolm Cid MD [address] [place] [address] PCP - [facility] 05/30/22Wednesday, BREE Marquez [address] [place] [address] Licensed Practical Nurse Family Medicine 06/04/23 Jayne Del Valle, DELMIS Licensed Practical Nurse Family Medicine 04/07/2404/30 Merry Paz LPN 05/19/24 documented as of this encounter
--- OUTSIDE RECORDS SUMMARY | 2024-08-04 12:07 | XMS_ITS | Encounter Summary ---
Author Organization [facility] Address [address] [place] [address] Care Team Providers Care Workday Director Name Role Phone Malcolm Cid MD Primary Care Provider [phone] Source Comments In the event this information is protected by the Federal Confidentiality of Alcohol and Drug AbusePatient Records regulations: The Federal rules restrict any use of the information to criminally investigate or prosecute any alcohol or drug abuse patient.[facility] Encounter Details Date Type Department Care Team (Late st Contact Info) Description 12/27/2018 Patient Msg Rheumatology [address] [place], [place] [id number] Provider, Issa RE: Update from Dr Castro [...] 10/03/2024 8:00 AM EDT Office Visit Rheumatology [address] [place], [place] [address] [place] [address] [place] [address] Return in about 9 months (around 10/03/2024). documented as of this encounter Visit Diagnoses Not on filedocumented in this encounter Care Teams Workday Director Relationship Specialty Start Date End Date Malcolm Cid MD PCP - General Family Medicine 01/07/15 documented as of this encounter
--- OUTSIDE RECORDS SUMMARY | 2024-08-04 12:07 | XMS_ITS | Encounter Summary ---
Author Organization [facility] Address [address] [place] [address] Care Team Providers Care Tenter Name Role Phone Malcolm Cid MD Primary Care Provider [phone] Source Comments In the event this information is protected by the Federal Confidentiality of Alcohol and Drug AbusePatient Records regulations: The Federal rules restrict any use of the information to criminally investigate or prosecute any alcohol or drug abuse patient.[facility] Encounter Details Date Type Department Care Team (Late st Contact Info) Description 12/27/2018 Patient Msg Rheumatology [address] [place], [place] [id number] Provider, Ccf reply Social History Tobacco Use [...] 10/03/2024 8:00 AM EDT Office Visit Rheumatology [address] [place] [address] [place] [address] [place] [address] Return in about 9 months (around 10/03/2024). documented as of this encounter Visit Diagnoses Not on filedocumented in this encounter Care Teams Tenter Relationship Specialty Start Date End Date Malcolm Cid MD PCP - General Family Medicine 01/07/15 documented as of this encounter
--- OUTSIDE RECORDS SUMMARY | 2024-08-04 12:07 | XMS_ITS | Encounter Summary ---
Author Organization [facility] Address [address] [place] [address] Care Team Providers Care Sports Reporter Name Role Phone Malcolm Cid MD Primary Care Provider [phone] Source Comments In the event this information is protected by the Federal Confidentiality of Alcohol and Drug AbusePatient Records regulations: The Federal rules restrict any use of the information to criminally investigate or prosecute any alcohol or drug abuse patient.[facility] Encounter Details Date Type Department Care Team (Late st Contact Info) Description 10/28/2018 Patient Msg Rheumatology [address] [place], [place] [phone] Provider, Ccf Dr Castro reply Social History [...] 10/03/2024 8:00 AM EDT Office Visit Rheumatology [address] [place] [address] [place] [address] [place] [address] Return in about 9 months (around 10/03/2024). documented as of this encounter Visit Diagnoses Not on filedocumented in this encounter Care Teams Sports Reporter Relationship Specialty Start Date End Date Malcolm Cid MD PCP - General Family Medicine 01/07/15 documented as of this encounter
--- OUTSIDE RECORDS SUMMARY | 2024-08-04 12:07 | XMS_ITS | Encounter Summary ---
Author Organization [facility] Address [address] [place] [address] Care Team Providers Care Financial Brokers Name Role Phone Malcolm Cid MD Primary Care Provider [phone] Source Comments In the event this information is protected by the Federal Confidentiality of Alcohol and Drug AbusePatient Records regulations: The Federal rules restrict any use of the information to criminally investigate or prosecute any alcohol or drug abuse patient.[facility] Encounter Details Date Type Department Care Team (Late st Contact Info) Description 10/28/2018 Patient Msg Rheumatology [address] [place], [place] [phone] Provider, Ccf Dr Castro message Social History [...] 10/03/2024 8:00 AM EDT Office Visit Rheumatology [address] [place] [address] [place] [address] [place] [address] Return in about 9 months (around 10/03/2024). documented as of this encounter Visit Diagnoses Not on filedocumented in this encounter Care Teams Financial Brokers Relationship Specialty Start Date End Date Malcolm Cid MD PCP - General Family Medicine 01/07/15 documented as of this encounter
--- OUTSIDE RECORDS SUMMARY | 2024-08-04 12:07 | XMS_ITS | Encounter Summary ---
Author Organization [facility] Address [address] [place] [address] Care Team Providers Care Shampoo Person Name Role Phone Malcolm Cid MD Primary Care Provider [phone] Source Comments In the event this information is protected by the Federal Confidentiality of Alcohol and Drug AbusePatient Records regulations: The Federal rules restrict any use of the information to criminally investigate or prosecute any alcohol or drug abuse patient.[facility] Encounter Details Date Type Department Care Team (Late st Contact Info) Description 03/04/2018 Patient Msg Infectious Disease [address] [place], [place] [phone] Provider, Ccf Dr Castro reply Social History [...] 10/03/2024 8:00 AM EDT Office Visit Rheumatology [address] [place] [address] [place] [address] [place] [address] Return in about 9 months (around 10/03/2024). documented as of this encounter Visit Diagnoses Not on filedocumented in this encounter Care Teams Shampoo Person Relationship Specialty Start Date End Date Malcolm Cid MD PCP - General Family Medicine 01/07/15 documented as of this encounter
--- OUTSIDE RECORDS SUMMARY | 2024-08-04 12:07 | XMS_ITS | Encounter Summary ---
Author Organization [facility] Address [address] [place] [address] Care Team Providers Care Sand Mixer Name Role Phone Malcolm Cid MD Primary Care Provider [phone] Malcolm Cid MD Unavailable Wednesday, Alma AQUINON Unavailable [phone] Jayne Del Valle RN Unavailable [phone] Merry Paz CADDY/CADDIE SUPERVISOR Unavailable Unavailable Encounter Details Date Type Department Care Team (Late st Contact Info) Description 03/08/2023 Abstract [facility] [address] [facility] 110 [place] [address] Malcolm Cid MD 112 [facility] 110 [place], [place] [address] Social History Tobacco Use Types Packs/Day Years [...] care, and heating? Not very hard 09/14/2022 [facility] of Occupat ional Health - Occupational Stress [...] 08/07/2024 11:00 AM EDT Office Visit [facility] [address] [facility] 110 [place] [address] Marina Proctor PA [address] [facility] 110 [place] [address] documented as of this encounter Visit Diagnoses Not on filedocumented in this encounter Care Teams Sand Mixer Relationship Specialty Start Date End Date Malcolm Cid MD [address] [facility] 110 [place] [address] PCP - General Family Medicine 07/29/22 Malcolm Cid MD [address] [place] [address] PCP - [facility] 05/30/22Wednesday, BREE Marquez [address] [place] [address] Licensed Practical Nurse Family Medicine 06/04/23 Jayne Del Valle, DELMIS Licensed Practical Nurse Family Medicine 04/07/2404/30 Merry Paz LPN 05/19/24 documented as of this encounter
--- OUTSIDE RECORDS SUMMARY | 2024-08-04 12:07 | XMS_ITS | Encounter Summary ---
Author Organization [facility] Address [address] [place] [address] Care Team Providers Care Cordwainer Name Role Phone Malcolm Cdi MD Primary Care Provider [phone] Malcolm Cid MD Unavailable Wednesday, Alma AQUINON Unavailable Jayne Del Valle RN Unavailable [phone] Merry Paz CASKET TRIMMER Unavailable Unavailable Reason for Visit * Reason Onset Date Comments Med Refill 09/15/2023 Encounter Details Date Type Department Care Team (Late st Contact Info) Description 09/15/2023 Refill [facility] [address] [facility] 110 [place] [address] Malcolm Cid MD [address] [place], [place] [address] Rheumatoid arthritis involving multiple sites with positive rheumatoid factor ([facility]/HCC) Social History Tobacco Use Types Packs/Day Years [...] and heating? Not very hard 09/14/2022 [facility] [place] of Occupat ional Health - Occupational Stress [...] [address] [place] [address] Marina Proctor, PA [address] [place] [address] documented as of this encounter Visit Diagnoses Diagnosis Rheumatoid arthritis involving multiple sites with positive rheumatoid factor ([facility]) documented in this encounter Care Teams Cordwainer Relationship Specialty Start Date End Date Malcolm Cid MD [address] [place] [address] PCP - General Family Medicine 07/29/22 Malcolm Cid MD [address] [place] [address] PCP - [facility] 05/30/22Wednesday, BREE Marquez [address] [place] [address] Licensed Practical Nurse Family Medicine 06/04/23 Jayne Del Valle, RN Licensed Practical Nurse Family Medicine 04/07/2404/30 Merry Paz LPN 05/19/24 documented as of this encounter
--- OUTSIDE RECORDS SUMMARY | 2024-08-04 12:07 | XMS_ITS | Encounter Summary ---
Author Organization [facility] Address [address] [place] [address] Care Team Providers Care Mixer Blender Name Role Phone Malcolm Cid MD Primary Care Provider [phone] Malcolm Cid MD Unavailable Wednesday, Alma AQUINON Unavailable [phone] Jayne Del Valle RN Unavailable Merry Paz INDUSTRIAL MAINTENANCE INSTRUCTOR Unavailable Unavailable Encounter Details Date Type Department Care Team (Late st Contact Info) Description 2023 Abstract [facility] [address] [facility] 110 [place] [address] Malcolm Cid MD 112 [facility] 110 [place], [place] [address] Social History Tobacco Use Types Packs/Day Years [...] 08/07/2024 11:00 AM EDT Office Visit [facility] [address] [facility] 110 [place] [address] Marina Proctor PA [address] [facility] 110 [place] [address] documented as of this encounter Visit Diagnoses Not on filedocumented in this encounter Care Teams Mixer Blender Relationship Specialty Start Date End Date Malcolm Cid MD [address] [facility] 110 [place] [address] PCP - General Family Medicine 07/29/22 Malcolm Cid MD [address] [place] [address] PCP - [facility] 05/30/22Wednesday, BREE Marquez [address] [place] [address] Licensed Practical Nurse Family Medicine 06/04/23 Jayne Del Valle, DELMIS Licensed Practical Nurse Family Medicine 04/07/2404/30 Merry Paz LPN 05/19/24 documented as of this encounter
--- OUTSIDE RECORDS SUMMARY | 2024-08-04 12:07 | XMS_ITS | Encounter Summary ---
Author Organization [facility] Address [address] [place] [address] Care Team Providers Care Lockstitch Lining Setter Name Role Phone Malcolm Cid MD Primary Care Provider [phone] Source Comments In the event this information is protected by the Federal Confidentiality of Alcohol and Drug AbusePatient Records regulations: The Federal rules restrict any use of the information to criminally investigate or prosecute any alcohol or drug abuse patient.[facility] Encounter Details Date Type Department Care Team (Late st Contact Info) Description 05/09/2020 Patient Msg Rheumatology [address] [place], [place] [phone] Provider, Ccf Results Social History Tobacco Use Types Packs/Day Years Used Date Smoking Tobacco: Never Smokeless Tobacco: Current Chew PHQ-2 Answer Date Recorded PHQ-2 score 4 03/31/2020 Area Deprivation Index Answer Date Adis rded National Score (1-100), lower number is lower ri sk Not on file 02/05/2020 State Score (1-10), lower number is lower risk N ot on file 02/05/2020 Data from: https://www.neighborhoodatlas.medicine.[facility].edu/. Last address used for calculation [...] 10/03/2024 8:00 AM EDT Office Visit Rheumatology [address] [place] [address] [place] [address] [place] [address] Return in about 9 months (around 10/03/2024). documented as of this encounter Visit Diagnoses Not on filedocumented in this encounter Care Teams Lockstitch Lining Setter Relationship Specialty Start Date End Date Malcolm Cid MD PCP - General Family Medicine 01/07/15 documented as of this encounter
--- OUTSIDE RECORDS SUMMARY | 2024-08-04 12:07 | XMS_ITS | Encounter Summary ---
Author Organization [facility] Address [address] [place] [address] Care Team Providers Care Tag Writer Name Role Phone Malcolm Cid MD Primary Care Provider [phone] Malcolm Cid MD Unavailable Wednesday, Alma AQUINON Unavailable [phone] Jayne Del Valle RN Unavailable Merry Paz PERSONAL LOAN SPECIALIST Unavailable Unavailable Reason for Visit * Reason Onset Date Comments Med Refill 03/16/2023 [facility] Encounter Details Date Type Department Care Team (Late st Contact Info) Description 03/16/2023 Refill [facility] [address] [facility] 110 [place] [address] Malcolm Cid MD [address] [place] [address] [facility] 110 [place] [address] Rheumatoid arthritis involving multiple sites [...] care, and heating? Not very hard 09/14/2022 [facility] [place] of Occupat ional Health - Occupational Stress [...] [address] [place] [address] Marina Proctor PA [address] [place] [address] documented as of this encounter Visit Diagnoses Diagnosis Rheumatoid arthritis involving multiple sites with positive rheumatoid factor ([facility]) documented in this encounter Care Teams Tag Writer Relationship Specialty Start Date End Date Malcolm Cid MD [address] [place] [address] PCP - General Family Medicine 07/29/22 Malcolm Cid MD [address] [place] [address] PCP - [facility] 05/30/22Wednesday, BREE Marquez [address] [place] [address] Licensed Practical Nurse Family Medicine 06/04/23 Jayne Del Valle, RN Licensed Practical Nurse Family Medicine 04/07/2404/30 Merry Paz LPN 05/19/24 documented as of this encounter
--- OUTSIDE RECORDS SUMMARY | 2024-08-04 12:07 | XMS_ITS | Encounter Summary ---
Author Organization [facility] Address [address] [place] [address] Care Team Providers Care Peoplesoft Name Role Phone Malcolm Cid MD Primary Care Provider [phone] Source Comments In the event this information is protected by the Federal Confidentiality of Alcohol and Drug AbusePatient Records regulations: The Federal rules restrict any use of the information to criminally investigate or prosecute any alcohol or drug abuse patient.[facility] Encounter Details Date Type Department Care Team (Late st Contact Info) Description 04/04/2020 Patient Msg Rheumatology [address] [place], [place] [id number] Provider, Ccf Results Social History Tobacco Use Types Packs/Day Years Used Date Smoking Tobacco: Never Smokeless Tobacco: Current Chew PHQ-2 Answer Date Recorded PHQ-2 score 4 03/31/2020 Area Deprivation Index Answer Date Adis rded National Score (1-100), lower number is lower ri sk Not on file 02/05/2020 State Score (1-10), lower number is lower risk N ot on file 02/05/2020 Data from: https://www.neighborhoodatlas.medicine.[facility].edu/. Last address used for calculation Not [...] 10/03/2024 8:00 AM EDT Office Visit Rheumatology [address] [place] [address] [place] [address] [place], [place] [address] Return in about 9 months (around 10/03/2024). documented as of this encounter Visit Diagnoses Not on filedocumented in this encounter Care Teams Peoplesoft Relationship Specialty Start Date End Date Malcolm Cid MD PCP - General Family Medicine 01/07/15 documented as of this encounter
--- OUTSIDE RECORDS SUMMARY | 2024-08-04 12:07 | XMS_ITS | Encounter Summary ---
Author Organization [facility] Address [address] [place] [address] Care Team Providers Care Cone Chocolate Dipper Name Role Phone Malcolm Cid MD Primary Care Provider +1- [phone] Source Comments In the event this information is protected by the Federal Confidentiality of Alcohol and Drug AbusePatient Records regulations: The Federal rules restrict any use of the information to criminally investigate or prosecute any alcohol or drug abuse patient.[facility] Encounter Details Date Type Department Care Team (Late st Contact Info) Description 11/25/2018 Patient Msg Rheumatology [address] [place], [place] [id number] [place] [address] [place] [address] December lab reminder Social History Tobacco Use [...] 10/03/2024 8:00 AM EDT Office Visit Rheumatology [address] [place] [address] [place] [address] [place] [address] Return in about 9 months (around 10/03/2024). documented as of this encounter Visit Diagnoses Not on filedocumented in this encounter Care Teams Cone Chocolate Dipper Relationship Specialty Start Date End Date Malcolm Cid MD PCP - General Family Medicine 01/07/15 documented as of this encounter
--- OUTSIDE RECORDS SUMMARY | 2024-08-04 12:07 | XMS_ITS | Encounter Summary ---
Author Organization [facility] Address [address] [place] [address] Care Team Providers Care Manager Target Name Role Phone Malcolm Cid MD Primary Care Provider +1- [phone] Source Comments In the event this information is protected by the Federal Confidentiality of Alcohol and Drug AbusePatient Records regulations: The Federal rules restrict any use of the information to criminally investigate or prosecute any alcohol or drug abuse patient.[facility] Encounter Details Date Type Department Care Team (Late st Contact Info) Description 03/16/2018 Patient Msg Infectious Disease [address] [place], [place] [id number] Provider, Ccf RE: Dr Castro reply- please [...] 10/03/2024 8:00 AM EDT Office Visit Rheumatology [address] [place] [address] [place] [address] [place] [address] Return in about 9 months (around 10/03/2024). documented as of this encounter Visit Diagnoses Not on filedocumented in this encounter Care Teams Manager Target Relationship Specialty Start Date End Date Malcolm Cid MD PCP - General Family Medicine 01/07/15 documented as of this encounter
--- OUTSIDE RECORDS SUMMARY | 2024-08-04 12:07 | XMS_ITS | Encounter Summary ---
Author Organization [facility] Address [address] [place] [address] Care Team Providers Care Grease Cup Filler Name Role Phone Malcolm Cid MD Primary Care Provider [phone] Malcolm Cid MD Unavailable Wednesday, Alma AQUINON Unavailable [phone] Jayne Del Valle RN Unavailable [phone] Merry Paz NUCLEAR WASTE PROCESS OPERATOR Unavailable Unavailable Encounter Details Date Type Department Care Team (Late st Contact Info) Description 02/23/2023 Abstract [facility] [address] [facility] 110 [place] [address] Malcolm Cid MD 112 [facility] 110 [place], [place] [address] Social History Tobacco Use Types Packs/Day Years [...] care, and heating? Not very hard 09/14/2022 [facility] - [...] 08/07/2024 11:00 AM EDT Office Visit [facility] [address] [facility] 110 [place] [address] Marina Proctor PA [address] [facility] 110 [place] [address] documented as of this encounter Visit Diagnoses Not on filedocumented in this encounter Care Teams Grease Cup Filler Relationship Specialty Start Date End Date Malcolm Cid MD [address] [facility] 110 [place] [address] PCP - General Family Medicine 07/29/22 Malcolm Cid MD [address] [place] [address] [place] [address] PCP - [facility] 05/30/22Wednesday, BREE Marquez [address] [place] [address] Licensed Practical Nurse Family Medicine 06/04/23 Jayne Del Valle, DELMIS Licensed Practical Nurse Family Medicine 04/07/2404/30 Merry Paz LPN 05/19/24 documented as of this encounter
--- OUTSIDE RECORDS SUMMARY | 2024-08-04 12:07 | XMS_ITS | Encounter Summary ---
Author Organization [facility] Address [address] [place] [address] Care Team Providers Care Product Safety Professional Name Role Phone Malcolm Cid MD Primary Care Provider [phone] Malcolm Cid MD Unavailable Wednesday, Alma AQUINON Unavailable [phone] Jayne Del Valle RN Unavailable [phone] Merry Paz ORDERING MACHINE OPERATOR Unavailable Unavailable Encounter Details Date Type Department Care Team (Late st Contact Info) Description 07/06/2023 Abstract [facility] 112 [facility] 110 [place] [address] Malcolm Cid MD 112 [facility] 110 [place], [place] [id number] Social History Tobacco Use Types Packs/Day Years [...] 08/07/2024 11:00 AM EDT Office Visit [facility] [address] [facility] 110 [place] [address] Marina Proctor PA [address] [place] [address] [place] [address] documented as of this encounter Visit Diagnoses Not on filedocumented in this encounter Care Teams Product Safety Professional Relationship Specialty Start Date End Date Malcolm Cid MD [address] [place] [address] [place] [address] PCP - General Family Medicine 07/29/22 Malcolm Cid MD [address] [place] [address] [place] [address] PCP - [facility] 05/30/22Wednesday, BREE Marquez [address] [place] [address] Licensed Practical Nurse Family Medicine 06/04/23 Jayne Del Valle, DELMIS Licensed Practical Nurse Family Medicine 04/07/2404/30 Merry Paz LPN 05/19/24 documented as of this encounter
--- OUTSIDE RECORDS SUMMARY | 2024-08-04 12:07 | XMS_ITS | Encounter Summary ---
Author Organization [facility] Address [address] [place] [address] Care Team Providers Care Human Resources Support Specialist Name Role Phone Malcolm Cid MD Primary Care Provider [phone]- [phone] Source Comments In the event this information is protected by the Federal Confidentiality of Alcohol and Drug AbusePatient Records regulations: The Federal rules restrict any use of the information to criminally investigate or prosecute any alcohol or drug abuse patient.[facility] Encounter Details Date Type Department Care Team (Late st Contact Info) Description 03/10/2019 Patient Msg Rheumatology [address] [place], [place] [id number] [place] [address] [place], [place] [address] April lab reminder Social History Tobacco Use [...] 10/03/2024 8:00 AM EDT Office Visit Rheumatology [address] [place] [address] [place] [address] [place] [address] Return in about 9 months (around 10/03/2024). documented as of this encounter Visit Diagnoses Not on filedocumented in this encounter Care Teams Human Resources Support Specialist Relationship Specialty Start Date End Date Malcolm Cid MD PCP - General Family Medicine 01/07/15 documented as of this encounter
--- OUTSIDE RECORDS SUMMARY | 2024-08-04 12:07 | XMS_ITS | Encounter Summary ---
Author Organization [facility] Address [address] [place] [address] Care Team Providers Care Corrective Therapy Aide Teacher Name Role Phone Malcolm Cid MD Primary Care Provider [phone] Malcolm Cid MD Unavailable Wednesday, Alma AQUINON Unavailable [phone] Jayne Del Valle RN Unavailable Merry Paz HYDRAMATIC MECHANIC Unavailable Unavailable Encounter Details Date Type Department Care Team (Late st Contact Info) Description 08/23/2023 Abstract [facility] [address] [facility] 110 [place] [address] Malcolm Cid MD 112 [facility] 110 [place], [place] [address] Social History Tobacco Use Types Packs/Day Years [...] [facility] [address] [facility] 110 [place] [address] Marina Proctor PA [address] [place] [address] [place] [address] documented as of this encounter Visit Diagnoses Not on filedocumented in this encounter Care Teams Corrective Therapy Aide Teacher Relationship Specialty Start Date End Date Malcolm Cid MD [address] [place] [address] [place] [address] PCP - General Family Medicine 07/29/22 Malcolm Cid MD [address] [place] [address] PCP - [facility] 05/30/22Wednesday, BREE Marquez [address] [place] [address] Licensed Practical Nurse Family Medicine 06/04/23 Jayne Del Valle, DELMIS Licensed Practical Nurse Family Medicine 04/07/2404/30 Merry Paz LPN 05/19/24 documented as of this encounter
--- OUTSIDE RECORDS SUMMARY | 2024-08-04 12:07 | XMS_ITS | Encounter Summary ---
Author Organization [facility] Address [address] [place] [address] Care Team Providers Care Top Lift Trimmer Name Role Phone Malcolm Cid MD Primary Care Provider [phone] Malcolm Cid MD Unavailable Wednesday, Alma AQUINON Unavailable [phone] Jayne Del Valle RN Unavailable [phone] Merry Paz TOY ASSEMBLER WOOD Unavailable Unavailable Encounter Details Date Type Department Care Team (Late st Contact Info) Description 06/10/2023 Orders Only [facility] [address] [place] 110 [place] [address] Unallocated, Noms Provider, [address] [place], [place] [address] Social History Tobacco Use Types Packs/Day Years [...] care, and heating? Not very hard 09/14/2022 [facility] Occupat ional Health - [...] WAY [facility] 110 [place] [address] Marina Proctor PA [address] [place] [address] [place] [address] documented as of this encounter Visit Diagnoses Not on filedocumented in this encounter Care Teams Top Lift Trimmer Relationship Specialty Start Date End Date Malcolm Cid MD [address] [facility] 110 [place] [address] PCP - General Family Medicine 07/29/22 Malcolm Cid MD [address] [place] [address] [place] [address] PCP - [facility] 05/30/22Wednesday, BREE Marquez [address] [place] [address] Licensed Practical Nurse Family Medicine 06/04/23 Jayne Del Valle, RN Licensed Practical Nurse Family Medicine 04/07/2404/30 Merry Paz LPN 05/19/24 documented as of this encounter
--- OUTSIDE RECORDS SUMMARY | 2024-08-04 12:07 | XMS_ITS | Encounter Summary ---
Author Organization [facility] Address [address] [place] [address] Care Team Providers Care Produce Team Member Name Role Phone Malcolm Cid MD Primary Care Provider [phone] Source Comments In the event this information is protected by the Federal Confidentiality of Alcohol and Drug AbusePatient Records regulations: The Federal rules restrict any use of the information to criminally investigate or prosecute any alcohol or drug abuse patient.[facility] Encounter Details Date Type Department Care Team (Late st Contact Info) Description 01/24/2019 Patient Msg Rheumatology [address] [place] [address] Provider, Ccf Message from Dr [...] 10/03/2024 8:00 AM EDT Office Visit Rheumatology [address] [place] [address] [place] [address] [place] [address] Return in about 9 months (around 10/03/2024). documented as of this encounter Visit Diagnoses Not on filedocumented in this encounter Care Teams Produce Team Member Relationship Specialty Start Date End Date Malcolm Cid MD PCP - General Family Medicine 01/07/15 documented as of this encounter
--- OUTSIDE RECORDS SUMMARY | 2024-08-04 12:07 | XMS_ITS | Encounter Summary ---
Author Organization [facility] Address [address] [place] [address] Care Team Providers Care Gate Watch Name Role Phone Malcolm Cid MD Primary Care Provider [phone] Malcolm Cid MD Unavailable Wednesday, Alma AQUINON Unavailable [phone] Jayne Del Valle RN Unavailable [phone] Merry Paz PROMOTIONS MANAGER Unavailable Unavailable Reason for Visit * Reason Onset Date Comments Med Refill 08/23/2023 Encounter Details Date Type Department Care Team (Late st Contact Info) Description 08/23/2023 Refill [facility] [address] [facility] 110 [place] [address] Malcolm Cid MD [address] [place] [address] [place], [place] [phone] Rheumatoid arthritis involving multiple sites with positive rheumatoid factor ([facility]/HCC) Social History Tobacco Use Types [...] care, and heating? Not very hard 09/14/2022 [facility] of Occupat ional Health - Occupational Stress [...] Visit [facility] [address] [facility] 110 [place] [address] Marina Proctor PA [address] [facility] 110 [place] [address] documented as of this encounter Visit Diagnoses Diagnosis 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) documented in this encounter Care Teams Gate Watch Relationship Specialty Start Date End Date Malcolm Cid MD [address] [facility] 110 [place] [address] PCP - General Family Medicine 07/29/22 Malcolm Cid MD [address] [facility] 110 [place] [address] PCP - [facility] 05/30/22Wednesday, BREE Marquez 112 [facility] 110 [place] [address] Licensed Practical Nurse Family Medicine 06/04/23 Jayne Del Valle, RN Licensed Practical Nurse Family Medicine 04/07/2404/30 Merry Paz LPN 05/19/24 documented as of this encounter
--- OUTSIDE RECORDS SUMMARY | 2024-08-04 12:07 | XMS_ITS | Patient Health Record ---
Author Organization 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 [place] [address] [place] [address] [id number] TRU SALDIVAR Self - patient is the insured Medical (General) History Medical History History ICD Code Depression High Blood Pressure Anxiety Surgical History Surgery Date(Month/Year) Knee arthroscopy 01/2023 Shoulder surgery, left 03/2021
--- OUTSIDE RECORDS SUMMARY | 2024-08-04 12:07 | XMS_ITS | Encounter Summary ---
Author Organization [facility] Address [address] [place] [address] Care Team Providers Care Bus Girl Name Role Phone Malcolm Cid MD Primary Care Provider [phone] Malcolm Cid MD Unavailable Wednesday, Alma AQUINON Unavailable [phone] Jayne Del Valle RN Unavailable Merry Paz JAVA GOLDEN GATE DEVELOPER Unavailable Unavailable Encounter Details Date Type Department Care Team (Late st Contact Info) Description 09/06/2023 Abstract [facility] [address] [facility] 110 [place] [address] Malcolm Cid MD 112 [facility] 110 [place], [place] [phone] Social History Tobacco Use Types Packs/Day Years [...] 08/07/2024 11:00 AM EDT Office Visit [facility] [address] [facility] 110 [place] [address] Marina Proctor PA [address] [place] [address] documented as of this encounter Visit Diagnoses Not on filedocumented in this encounter Care Teams Bus Girl Relationship Specialty Start Date End Date Malcolm Cid MD [address] [place] [address] PCP - General Family Medicine 07/29/22 Malcolm Cid MD [address] [place] [address] PCP - [facility] 05/30/22Wednesday, BREE Marquez [address] [place] [address] Licensed Practical Nurse Family Medicine 06/04/23 Jayne Del Valle, DELMIS Licensed Practical Nurse Family Medicine 04/07/2404/30 Merry Paz LPN 05/19/24 documented as of this encounter
--- OUTSIDE RECORDS SUMMARY | 2024-08-04 12:07 | XMS_ITS | Encounter Summary ---
Author Organization [facility] Address [address] [place] [address] Care Team Providers Care Aws Consultant Name Role Phone Malcolm Cid MD Primary Care Provider [phone]- [phone] Source Comments In the event this information is protected by the Federal Confidentiality of Alcohol and Drug AbusePatient Records regulations: The Federal rules restrict any use of the information to criminally investigate or prosecute any alcohol or drug abuse patient.[facility] Encounter Details Date Type Department Care Team (Late st Contact Info) Description 05/09/2020 Patient Msg Rheumatology [address] [place], [place] [phone] Provider, Ccf Results Social History Tobacco Use Types Packs/Day Years Used Date Smoking Tobacco: Never Smokeless Tobacco: Current Chew PHQ-2 Answer Date Recorded PHQ-2 score 4 03/31/2020 Area Deprivation Index Answer Date Adis rded National Score (1-100), lower number is lower ri sk Not on file 02/05/2020 State Score (1-10), lower number is lower risk N ot on file 02/05/2020 Data from: https://www.neighborhoodatlas.medicine.[facility].edu/. Last address used for calculation Not [...] Assessment Author No 04/26/2017 6:15 PM Oralia Hurtaod RN * Are you blind or do [...] 10/03/2024 8:00 AM EDT Office Visit Rheumatology [address] [place] [address] [place] [address] [place] [address] Return in about 9 months (around 10/03/2024). documented as of this encounter Visit Diagnoses Not on filedocumented in this encounter Care Teams Aws Consultant Relationship Specialty Start Date End Date Malcolm Cid MD PCP - General Family Medicine 01/07/15 documented as of this encounter
--- OUTSIDE RECORDS SUMMARY | 2024-08-04 12:07 | XMS_ITS | Encounter Summary ---
Author Organization [facility] Address [address] [place] [address] Care Team Providers Care Elevated Motorman Name Role Phone Malcolm Cid MD Primary Care Provider [phone] Malcolm Cid MD Unavailable Wednesday, Alma AQUINON Unavailable [phone] Jayne Del Valle RN Unavailable Merry Paz NURSE EXECUTIVE Unavailable Unavailable Encounter Details Date Type Department Care Team (Late st Contact Info) Description 03/09/2023 Abstract [facility] [address] [facility] 110 [place] [address] Malcolm Cid MD 112 [facility] 110 [place], [place] [phone] Social History Tobacco Use Types Packs/Day Years [...] [facility] [address] [facility] 110 [place] [address] Marina Proctor PA [address] [facility] 110 [place] [address] documented as of this encounter Visit Diagnoses Not on filedocumented in this encounter Care Teams Elevated Motorman Relationship Specialty Start Date End Date Malcolm Cid MD [address] [facility] 110 [place] [address] PCP - General Family Medicine 07/29/22 Malcolm Cid MD [address] [place] [address] [place] [address] PCP - [facility] 05/30/22Wednesday, BREE Marquez [address] [place] [address] Licensed Practical Nurse Family Medicine 06/04/23 Jayne Del Valle, DELMIS Licensed Practical Nurse Family Medicine 04/07/2404/30 Merry Paz LPN 05/19/24 documented as of this encounter
--- OUTSIDE RECORDS SUMMARY | 2024-08-04 12:07 | XMS_ITS | Encounter Summary ---
Author Organization [facility] Address [address] [place] [address] Care Team Providers Care Batter Mixer Helper Name Role Phone Malcolm Cid MD Primary Care Provider [phone] Source Comments In the event this information is protected by the Federal Confidentiality of Alcohol and Drug AbusePatient Records regulations: The Federal rules restrict any use of the information to criminally investigate or prosecute any alcohol or drug abuse patient.[facility] Encounter Details Date Type Department Care Team (Late st Contact Info) Description 12/28/2018 Patient Msg Rheumatology [address] [place] [address] Provider, Ccf Update on insurance [...] 10/03/2024 8:00 AM EDT Office Visit Rheumatology [address] [place] [address] [place] [address] [place] [address] Return in about 9 months (around 10/03/2024). documented as of this encounter Visit Diagnoses Not on filedocumented in this encounter Care Teams Batter Mixer Helper Relationship Specialty Start Date End Date Malcolm Cid MD PCP - General Family Medicine 01/07/15 documented as of this encounter
--- OUTSIDE RECORDS SUMMARY | 2024-08-04 12:07 | XMS_ITS | Encounter Summary ---
Author Organization [facility] Address [address] [place] [address] Care Team Providers Care Sequins Stringer Name Role Phone Malcolm Cid MD Primary Care Provider +1- [phone] Source Comments In the event this information is protected by the Federal Confidentiality of Alcohol and Drug AbusePatient Records regulations: The Federal rules restrict any use of the information to criminally investigate or prosecute any alcohol or drug abuse patient.[facility] Encounter Details Date Type Department Care Team (Late st Contact Info) Description 01/02/2019 Patient Msg Rheumatology [address] [place] [address] Provider, Ccf Please call our [...] 10/03/2024 8:00 AM EDT Office Visit Rheumatology [address] [place] [address] [place] [address] [place] [address] Return in about 9 months (around 10/03/2024). documented as of this encounter Visit Diagnoses Not on filedocumented in this encounter Care Teams Sequins Stringer Relationship Specialty Start Date End Date Malcolm Cid MD PCP - General Family Medicine 01/07/15 documented as of this encounter
--- OUTSIDE RECORDS SUMMARY | 2024-08-04 12:07 | XMS_ITS | Encounter Summary ---
Author Organization [facility] Address [address] [place] [address] Care Team Providers Care Custodial Manager Name Role Phone Malcolm Cid MD Primary Care Provider +1- [phone] Source Comments In the event this information is protected by the Federal Confidentiality of Alcohol and Drug AbusePatient Records regulations: The Federal rules restrict any use of the information to criminally investigate or prosecute any alcohol or drug abuse patient.[facility] Encounter Details Date Type Department Care Team (Late st Contact Info) Description 04/05/2020 Patient Msg Rheumatology [address] [place], [place] [phone] Provider, Ccf Results Social History Tobacco Use Types Packs/Day Years Used Date Smoking Tobacco: Never Smokeless Tobacco: Current Chew PHQ-2 Answer Date Recorded PHQ-2 score 4 03/31/2020 Area Deprivation Index Answer Date Adis rded National Score (1-100), lower number is lower ri sk Not on file 02/05/2020 State Score (1-10), lower number is lower risk N ot on file 02/05/2020 Data from: https://www.neighborhoodatlas.medicine.[facility].edu/. Last address used for calculation Not [...] of Assessment Author No 04/26/2017 6:15 PM Oralai Hurtado RN * Are you blind or [...] 10/03/2024 8:00 AM EDT Office Visit Rheumatology [address] [place] [address] [place] [address] [place], [place] [phone] Return in about 9 months (around 10/03/2024). documented as of this encounter Visit Diagnoses Not on filedocumented in this encounter Care Teams Custodial Manager Relationship Specialty Start Date End Date Malcolm Cid MD PCP - General Family Medicine 01/07/15 documented as of this encounter
--- OUTSIDE RECORDS SUMMARY | 2024-08-04 12:07 | XMS_ITS | Encounter Summary ---
Author Organization [facility] Address [address] [place] [address] Care Team Providers Care Warble Saw Operator Name Role Phone Malcolm Cid MD Primary Care Provider [phone] Malcolm Cid MD Unavailable Wednesday, Alma AQUINON Unavailable [phone] Jayne Del Valle RN Unavailable Merry Paz FURNACE COOLER Unavailable Unavailable Reason for Visit * Reason Onset Date Comments Med Refill 08/30/2023 Encounter Details Date Type Department Care Team (Late st Contact Info) Description 08/30/2023 Refill [facility] [address] [facility] 110 [place] [id number] Malcolm Cid MD [address] [facility] 110 [place], [place] [id number] Social History Tobacco Use Types Packs/Day Years [...] care, and heating? Not very hard 09/14/2022 [facility] [place] of Occupat ional Health - Occupational Stress [...] Visit [facility] [address] [facility] 110 [place] [address] Marina Proctor PA [address] [facility] 110 [place] [address] documented as of this encounter Visit Diagnoses Not on filedocumented in this encounter Care Teams Warble Saw Operator Relationship Specialty Start Date End Date Malcolm Cid MD [address] [facility] 110 [place] [address] PCP - General Family Medicine 07/29/22 Malcolm Cid MD [address] [place] [address] [place] [address] PCP - [facility] 05/30/22Wednesday, BREE Marquez [address] [place] [address] Licensed Practical Nurse Family Medicine 06/04/23 Jayne Del Valle, RN Licensed Practical Nurse Family Medicine 04/07/2404/30 Merry Paz LPN 05/19/24 documented as of this encounter
--- OUTSIDE RECORDS SUMMARY | 2024-08-04 12:08 | XMS_ITS | Encounter Summary ---
Author Organization [facility] Address [address] [place] [address] Care Team Providers Care Mail Machine Operator Name Role Phone Malcolm Cid MD Primary Care Provider [phone] Source Comments In the event this information is protected by the Federal Confidentiality of Alcohol and Drug AbusePatient Records regulations: The Federal rules restrict any use of the information to criminally investigate or prosecute any alcohol or drug abuse patient.[facility] Encounter Details Date Type Department Care Team (Late st Contact Info) Description 10/12/2022 Patient Msg Rheumatology [address] [place], [place] [id number] Provider, Ccf Appoinment Cancellation Social History Tobacco Use Types Packs/Day Years Used Date Smoking Tobacco: Never Smokeless Tobacco: Current Chew PHQ-2 Answer Date Recorded PHQ-2 score 4 08/13/2022 Area Deprivation Index Answer Date Adis rded National Score (1-100), lower number is lower ri sk 87 08/14/2022 State Score (1-10), lower number is lower risk 8 08/14/2022 Data from: https://www.neighborhoodatlas.medicine.[facility].edu/. Last address used for calculation [address] [facility] 08/14/2022 Sex and Gender Information Value Date [...] 10/03/2024 8:00 AM EDT Office Visit Rheumatology [address] [place] [address] [place] [address] [place] [address] Return in about 9 months (around 10/03/2024). documented as of this encounter Visit Diagnoses Not on filedocumented in this encounter Care Teams Mail Machine Operator Relationship Specialty Start Date End Date Malcolm Cid MD PCP - General Family Medicine 01/07/15 documented as of this encounter
--- OUTSIDE RECORDS SUMMARY | 2024-08-04 12:08 | XMS_ITS | Encounter Summary ---
Author Organization [facility] Address [address] [place] [address] Care Team Providers Care Data Librarian Name Role Phone Malcolm Cid MD Primary Care Provider [phone]- [phone] Source Comments In the event this information is protected by the Federal Confidentiality of Alcohol and Drug AbusePatient Records regulations: The Federal rules restrict any use of the information to criminally investigate or prosecute any alcohol or drug abuse patient.[facility] Encounter Details Date Type Department Care Team (Late st Contact Info) Description 12/02/2020 Patient Msg Rheumatology [address] [place], [place] [id number] [place] [address] [place] [address] Lab reminder Social History Tobacco Use Types Packs/Day Years Used Date Smoking Tobacco: Never Smokeless Tobacco: Current Chew PHQ-2 Answer Date Recorded PHQ-2 score 3 08/19/2020 Area Deprivation Index Answer Date Adis rded National Score (1-100), lower number is lower ri sk Not on file 02/05/2020 State Score (1-10), lower number is lower risk N ot on file 02/05/2020 Data from: https://www.neighborhoodatlas.[facility]/. Last address used for calculation Not [...] of Assessment Author No 04/26/2017 6:15 PM Orlaia Hurtado RN * Because of a physical, [...] 10/03/2024 8:00 AM EDT Office Visit Rheumatology [address] [place], [place] [address] [place] [address] [place], [place] [id number] Return in about 9 months (around 10/03/2024). documented as of this encounter Visit Diagnoses Not on filedocumented in this encounter Care Teams Data Librarian Relationship Specialty Start Date End Date Malcolm Cid MD PCP - General Family Medicine 01/07/15 documented as of this encounter
--- OUTSIDE RECORDS SUMMARY | 2024-08-04 12:08 | XMS_ITS | Encounter Summary ---
Author Organization [facility] Address [address] [place] [address] Care Team Providers Care Shoe Parts Caser Name Role Phone Malcolm Cid MD Primary Care Provider [phone] Source Comments In the event this information is protected by the Federal Confidentiality of Alcohol and Drug AbusePatient Records regulations: The Federal rules restrict any use of the information to criminally investigate or prosecute any alcohol or drug abuse patient.[facility] Encounter Details Date Type Department Care Team (Late st Contact Info) Description 03/08/2023 Patient Msg Rheumatology [address] [place], [place] [id number] [place] [address] [place], [place] [address] Previsit lab reminder Social History Tobacco Use Types Packs/Day Years Used Date Smoking Tobacco: Never Smokeless Tobacco: Current Chew PHQ-2 Answer Date Recorded PHQ-2 score 4 08/13/2022 Area Deprivation Index Answer Date Adis rded National Score (1-100), lower number is lower ri sk 87 08/14/2022 State Score (1-10), lower number is lower risk 8 08/14/2022 Data from: https://www.neighborhoodatlas.[facility]/. Last address used for calculation Thong [...] 10/03/2024 8:00 AM EDT Office Visit Rheumatology [address] [place], [place] [id number] [place] [address] [place], [place] [phone] Return in about 9 months (around 10/03/2024). documented as of this encounter Visit Diagnoses Not on filedocumented in this encounter Care Teams Shoe Parts Caser Relationship Specialty Start Date End Date Malcolm Cid MD PCP - General Family Medicine 01/07/15 documented as of this encounter
--- OUTSIDE RECORDS SUMMARY | 2024-08-04 12:08 | XMS_ITS | Encounter Summary ---
Author Organization [facility] Address [address] [place] [address] Care Team Providers Care Emergency Room Nurse Name Role Phone Malcolm Cid MD Primary Care Provider [phone] Malcolm Cid MD Unavailable Merry Paz LPN Unavailable Unavailable Reason for Visit * Reason Comments Med Refill Encounter Details Date Type Department Care Team (Late st Contact Info) Description 08/01/2024 Refill [facility] [address] [facility] 110 [place] [address] Malcolm Cid MD 112 [facility] 110 [place] [address] Essential hypertension (CMS/HCC) Social History Tobacco Use Types Packs/Day [...] Recorded Patient Health Questionnaire-2 Score 0 05/18/2024 [facility] of Occupat ional Health - Occupational Stress [...] in a penitentiary (including now)? No 09/14/2022 Housing Stability Vital Sign Answer Sohail e Recorded In the last 12 months, was t here a time when you were not able to pay the mortgage or rent on time? Yes 10/10/2023 In the past 12 months, how m any times have you moved where you were living? 0 10/10/2023 At any time in the past 12 m [facility], were you homeless or living in a penitentiary (including now)? No 10/10/2023 Sex and Gender [...] Office Visit [facility] [address] [facility] 110 [place] [address] Marina Proctor PA [address] [facility] 110 [place] [address] documented as of this encounter Visit Diagnoses Diagnosis Essential hypertension (CMS/HCC) Unspecified essential hypertension documented in this encounter Care Teams Emergency Room Nurse Relationship Specialty Start Date End Date Malcolm Cid MD [address] [facility] 110 [place] [address] PCP - General Family Medicine 07/29/22 Malcolm Cid MD 112 [facility] 110 [place] [address] PCP - [facility] 05/30/22 Merry Paz LPN 05/19/24 documented as of this encounter
--- OUTSIDE RECORDS SUMMARY | 2024-08-04 12:08 | XMS_ITS | Encounter Summary ---
Author Organization [facility] Address [address] [place] [address] Care Team Providers Care Relationship Counselor Name Role Phone Malcolm Cid MD Primary Care Provider [phone] Malcolm Cid MD Unavailable Wednesday, Alma AQUINON Unavailable [phone] Jayne Del Valle RN Unavailable [phone] Merry Paz WEAPONS AND TACTICS INSTRUCTOR Unavailable Unavailable Encounter Details Date Type Department Care Team (Late st Contact Info) Description 04/21/2023 Orders Only [facility] [address] [place] [address] [place] [address] A, Unknown Practice [address] [place] [address] Social History Tobacco Use Types Packs/Day Years [...] How often do you attend chur or yarsani services? More than 4 times per year [...] 08/07/2024 11:00 AM EDT Office Visit [facility] 112 [facility] 110 [place] [address] Marina Proctor PA [address] [facility] 110 [place] [address] documented as of this encounter Procedures Procedure Name Priority Date/Time Associated Diagnosis Comments ELECTROCARDIOGRAM REPORT Routine 024 2:49 PM EST documented in this encounter Results * Electrocardiogram Report (04/20/2023 2:49 PM EST) us Unknown Practice A IN CLINIC/BEDSIDE ORDERABLES Final Result documented in this encounter Visit Diagnoses Not on filedocumented in this encounter Care Teams Relationship Counselor Relationship Specialty Start Date End Date Palak, Rugen M, MD [address] [place] [address] [place] [address] PCP - General Family Medicine 07/29/22 Malcolm Cid MD [address] [place] [address] [place] [address] PCP - [facility] 05/30/22Wednesday, BREE Marquez [address] [place] [address] Licensed Practical Nurse Family Medicine 06/04/23 Jayne Del Valle, RN Licensed Practical Nurse Family Medicine 04/07/2404/30 Merry Paz LPN 05/19/24 documented as of this encounter
--- OUTSIDE RECORDS SUMMARY | 2024-08-04 12:08 | XMS_ITS | Encounter Summary ---
Author Organization [facility] Address [address] [place] [address] Care Team Providers Care Sourcing Assistant Name Role Phone Malcolm Cid MD Primary Care Provider [phone] Source Comments In the event this information is protected by the Federal Confidentiality of Alcohol and Drug AbusePatient Records regulations: The Federal rules restrict any use of the information to criminally investigate or prosecute any alcohol or drug abuse patient.[facility] Encounter Details Date Type Department Care Team (Late st Contact Info) Description 01/01/2022 Patient Msg Rheumatology [address] [place], [place] [id number] [place] [address] [place] [address] Previsit lab reminder Social History Tobacco Use Types Packs/Day Years Used Date Smoking Tobacco: Never Smokeless Tobacco: Current Chew PHQ-2 Answer Date Recorded PHQ-2 score 3 08/19/2020 Area Deprivation Index Answer Date Adis rded National Score (1-100), lower number is lower ri sk Not on file 02/05/2020 State Score (1-10), lower number is lower risk N ot on file 02/05/2020 Data from: https://www.neighborhoodatlas.[facility]/. Last address used for calculation Not on [...] 10/03/2024 8:00 AM EDT Office Visit Rheumatology [address] [place], [place] [address] [place] [address] [place], [place] [id number] Return in about 9 months (around 10/03/2024). documented as of this encounter Visit Diagnoses Not on filedocumented in this encounter Care Teams Sourcing Assistant Relationship Specialty Start Date End Date Malcolm Cid MD PCP - General Family Medicine 01/07/15 documented as of this encounter
--- OUTSIDE RECORDS SUMMARY | 2024-08-04 12:08 | XMS_ITS | Encounter Summary ---
Author Organization [facility] Address [address] [place] [address] Care Team Providers Care Wood Borer Name Role Phone Malcolm Cid MD Primary Care Provider [phone] Malcolm Cid MD Unavailable Merry Paz LPN Unavailable Unavailable Encounter Details Date Type Department Care Team (Late st Contact Info) Description 08/01/2024 Patient Outreach [facility] [address] [place] [address] Jayne Del Valle, DELMIS Social History Tobacco Use Types Packs/Day Years [...] Recorded Patient Health Questionnaire-2 Score 0 05/18/2024 [facility] of Occupat ional Health - [...] any time in the past 12 m [facility], were you homeless or living in a skilled nursing (including now)? No 10/10/2023 Sex and Gender Information Value Date Recorded Sex Assigned at Male 09/08/2022 2:56 PM EDT Legal Sex Male 6:55 PM EDT Gender Identity Male 09/08/2022 2:56 PM EDT Sexual Orientation Straight 09/08/2022 2: 56 PM EDT documented as of this encounter Progress Notes * Jayne Del Valle RN - 08/01/2024 12:33 PM EDT Images from the original note were not included. Flowsheet Row Patient Outreach from 08/01/2024 in [facility] with Jayne Del Valle RN Hospital Information ED, Hospital or Retirement Facility Discharge? Hospital Patient has been contacted within two business days of discharge Yes Diagnosis intractable pain, polyarthralgia, RA flare, acute hypernatremia, hyperglycemia-drug induced Discharge Date 07/31/24 Discharged To: Home Setting Discharge Hospital [facility] Engagement Admission Date 07/29/24 Medications Discharge medications reviewed and reconciled from hospital? Yes Is the patient having any side effects they believe may be caused by any medication additions or changes? No Does the patient have all medications ordered at discharge? Yes Nursing Interventions Nurse provided patient education Prescription Comments New: Percocet, prednisone Appointments Does the patient have a primary care provider? Yes [follow up with Marina MARINELLI on 08/07 at 1030am] Nursing Interventions Verified appointment date/time/provider Self Management Does patient have home health? no Patient Teaching Does the patient have access to their discharge instructions? Yes Nursing Interventions Reviewed instructions with patient What is the patient's perception of their health status since discharge? Improving [reports he is feeling better] Wrap Up Wrap Up Additional Comments pt with difficulty walking, elevated CRP secondary to RA flare. Pt in hospital for tx. DC home feeling better and started on Prednisone taper dose and percocet for pain. Pt was sleeping at time of call and did not talk much. Confirmed follow up appt with pt with Marina Preciado 08/07 at 1030am. documented in this encounter Plan of Treatment Upcoming Encounters Date Type Department Care Team (Late st Contact Info) Description 08/07/2024 11:00 AM EDT Office Visit [facility] [address] [facility] 110 [place] [address] Marina Proctor PA 112 [facility] 110 [place] [address] documented as of this encounter Visit Diagnoses Diagnosis 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)- Primary Essential hypertension (CMS/HCC) Unspecified essential hypertension documented in this encounter Care Teams Wood Borer Relationship Specialty Start Date End Date Malcolm Cid MD [address] [facility] 110 [place], [place] [address] PCP - General Family Medicine 07/29/22 Malcolm Cid MD 112 [facility] 110 [place], [place] [id number] PCP - [facility] 05/30/22 Merry Paz LPN 05/19/24 documented as of this encounter
--- OUTSIDE RECORDS SUMMARY | 2024-08-04 12:08 | XMS_ITS | Encounter Summary ---
Author Organization [facility] Address [address] [place] [address] Care Team Providers Care Biological Scientist Name Role Phone Malcolm Cid MD Primary Care Provider [phone] Source Comments In the event this information is protected by the Federal Confidentiality of Alcohol and Drug AbusePatient Records regulations: The Federal rules restrict any use of the information to criminally investigate or prosecute any alcohol or drug abuse patient.[facility] Encounter Details Date Type Department Care Team (Late st Contact Info) Description 08/14/2022 Patient Msg Rheumatology [address] [place], [place] [phone] [place] [address] [place] [address] Previsit lab reminder Social History Tobacco Use Types Packs/Day Years Used Date Smoking Tobacco: Never Smokeless Tobacco: Current Chew PHQ-2 Answer Date Recorded PHQ-2 score 4 08/13/2022 Area Deprivation Index Answer Date Adis rded National Score (1-100), lower number is lower ri sk 87 08/14/2022 State Score (1-10), lower number is lower risk 8 08/14/2022 Data from: https://www.neighborhoodatlas.[facility]/. Last address used for [...] 10/03/2024 8:00 AM EDT Office Visit Rheumatology [address] [place], [place] [address] [place] [address] [place], [place] [id number] Return in about 9 months (around 10/03/2024). documented as of this encounter Visit Diagnoses Not on filedocumented in this encounter Care Teams Biological Scientist Relationship Specialty Start Date End Date Malcolm Cid MD PCP - General Family Medicine 01/07/15 documented as of this encounter
--- OUTSIDE RECORDS SUMMARY | 2024-08-04 12:08 | XMS_ITS | Encounter Summary ---
Author Organization [facility] Address [address] [place] [address] Care Team Providers Care Java Consultant Name Role Phone Malcolm Cid MD Primary Care Provider [phone] Malcolm Cid MD Unavailable Wednesday, Alma AQUINON Unavailable [phone] Jayne Del Valle RN Unavailable [phone] Merry Paz LPN Unavailable Unavailable Encounter Details Date Type Department Care Team (Late st Contact Info) Description 06/15/2023 Orders Only [facility] [address] [place] [place] [address] A, Unknown Practice [address] [place] [address] Social History Tobacco Use Types Packs/Day Years [...] 08/07/2024 11:00 AM EDT Office Visit [facility] 112 [facility] 110 [place] [address] Marina Proctor PA [address] [facility] 110 [place] [address] documented as of this encounter Procedures Procedure [...] on filedocumented in this encounter Care Teams Java Consultant Relationship Specialty Start Date End Date Malcolm Cid MD [address] [place] [address] PCP - General Family Medicine 07/29/22 Malcolm Cid MD [address] [place] [address] PCP - [facility] 05/30/22Wednesday, BREE Marquez [address] [place] [address] Licensed Practical Nurse Family Medicine 06/04/23 Jayne Del Valle, RN Licensed Practical Nurse Family Medicine 04/07/2404/30 Merry Paz LPN 05/19/24 documented as of this encounter
--- OUTSIDE RECORDS SUMMARY | 2024-08-04 12:08 | XMS_ITS | Encounter Summary ---
Author Organization [facility] Address [address] [place] [address] Care Team Providers Care Crop Grain Or Livestock Farmer Name Role Phone Malcolm Cid MD Primary Care Provider [phone] Source Comments In the event this information is protected by the Federal Confidentiality of Alcohol and Drug AbusePatient Records regulations: The Federal rules restrict any use of the information to criminally investigate or prosecute any alcohol or drug abuse patient.[facility] Encounter Details Date Type Department Care Team (Late st Contact Info) Description 02/04/2024 Get Medical Advice Rheumatology [address] [place], [place] [address] [place] [address] [place] [address] Flare up Social History Tobacco Use Types Packs/Day Years Used Date Smoking Tobacco: Never Smokeless Tobacco: Current Chew PHQ-2 Answer Date Recorded PHQ-2 score 1 01/14/2024 Area Deprivation Index Answer Date Adis rded National Score (1-100), lower number is lower ri sk 87 08/14/2022 State Score (1-10), lower number is lower risk 8 08/14/2022 Data from: https://www.neighborhoodatlas.medicine[facility]/. Last address used for calculation Thong [...] 10/03/2024 8:00 AM EDT Office Visit Rheumatology [address] [place] [address] [place] [address] [place] [address] Return in about 9 months (around 10/03/2024). documented as of this encounter Visit Diagnoses Not on filedocumented in this encounter Care Teams Crop Grain Or Livestock Farmer Relationship Specialty Start Date End Date Malcolm Cid MD PCP - General Family Medicine 01/07/15 documented as of this encounter
--- OUTSIDE RECORDS SUMMARY | 2024-08-04 12:08 | XMS_ITS | Encounter Summary ---
Author Organization [facility] Address [address] [place] [address] Care Team Providers Care Supervisor Motorcycle Repair Shop Name Role Phone Malcolm Cid MD Primary Care Provider [phone] Source Comments In the event this information is protected by the Federal Confidentiality of Alcohol and Drug AbusePatient Records regulations: The Federal rules restrict any use of the information to criminally investigate or prosecute any alcohol or drug abuse patient.[facility] Encounter Details Date Type Department Care Team (Late st Contact Info) Description 08/19/2020 Patient Msg Rheumatology [address] [place], [place] [id number] [place] [address] [place] [address] September lab reminder Social History Tobacco Use Types Packs/Day Years Used Date Smoking Tobacco: Never Smokeless Tobacco: Current Chew PHQ-2 Answer Date Recorded PHQ-2 score 3 08/19/2020 Area Deprivation Index Answer Date Adis rded National Score (1-100), lower number is lower ri sk Not on file 02/05/2020 State Score (1-10), lower number is lower risk N ot on file 02/05/2020 Data from: https://www.neighborhoodatlas.[facility]/. Last address used for calculation Not [...] 10/03/2024 8:00 AM EDT Office Visit Rheumatology [address] [place], [place] 9[address] [place] [address] [place], [place] [id number] Return in about 9 months (around 10/03/2024). documented as of this encounter Visit Diagnoses Not on filedocumented in this encounter Care Teams Supervisor Motorcycle Repair Shop Relationship Specialty Start Date End Date Malcolm Cid MD PCP - General Family Medicine 01/07/15 documented as of this encounter
--- OUTSIDE RECORDS SUMMARY | 2024-08-04 12:08 | XMS_ITS | Encounter Summary ---
Author Organization [facility] Address [address] [place] [address] Care Team Providers Care Studio Technician Name Role Phone Malcolm Cid MD Primary Care Provider +1- [phone] Source Comments In the event this information is protected by the Federal Confidentiality of Alcohol and Drug AbusePatient Records regulations: The Federal rules restrict any use of the information to criminally investigate or prosecute any alcohol or drug abuse patient.[facility] Encounter Details Date Type Department Care Team (Late st Contact Info) Description 09/09/2022 Get Medical Advice Rheumatology [address] [place], [place] [id number] [place] [address] [place] [address] Return to work form. Social History Tobacco Use Types Packs/Day Years Used Date Smoking Tobacco: Never Smokeless Tobacco: Current Chew PHQ-2 Answer Date Recorded PHQ-2 score 4 08/13/2022 Area Deprivation Index Answer Date Adis rded National Score (1-100), lower number is lower ri sk 87 08/14/2022 State Score (1-10), lower number is lower risk 8 08/14/2022 Data from: https://www.kindred healthcareatlas.[facility]/. Last address used for [...] 10/03/2024 8:00 AM EDT Office Visit Rheumatology [address] [place], [place] [id number] [place] [address] [place], [place] [phone] Return in about 9 months (around 10/03/2024). documented as of this encounter Visit Diagnoses Not on filedocumented in this encounter Care Teams Studio Technician Relationship Specialty Start Date End Date Malcolm Cid MD PCP - General Family Medicine 01/07/15 documented as of this encounter
--- OUTSIDE RECORDS SUMMARY | 2024-08-04 12:08 | XMS_ITS | Encounter Summary ---
Author Organization [facility] Address [address] [place] [address] Care Team Providers Care Hand Touch Up Painter Name Role Phone Malcolm Cid MD Primary Care Provider +1- [phone] Source Comments In the event this information is protected by the Federal Confidentiality of Alcohol and Drug AbusePatient Records regulations: The Federal rules restrict any use of the information to criminally investigate or prosecute any alcohol or drug abuse patient.[facility] Encounter Details Date Type Department Care Team (Late st Contact Info) Description 09/15/2021 Patient Msg Rheumatology [address] [place], [place] [address] [place] [address] [place] [address] Lab results/orders Social History Tobacco Use Types Packs/Day Years Used Date Smoking Tobacco: Never Smokeless Tobacco: Current Chew PHQ-2 Answer Date Recorded PHQ-2 score 3 08/19/2020 Area Deprivation Index Answer Date Adis rded National Score (1-100), lower number is lower ri sk Not on file 02/05/2020 State Score (1-10), lower number is lower risk N ot on file 02/05/2020 Data from: https://www.neighborhoodatlas.[facility]/. Last address used for calculation [...] 10/03/2024 8:00 AM EDT Office Visit Rheumatology [address] [place], [place] 89[address] [place] [address] [place], [place] 13[address] Return in about 9 months (around 10/03/2024). documented as of this encounter Visit Diagnoses Not on filedocumented in this encounter Care Teams Hand Touch Up Painter Relationship Specialty Start Date End Date Malcolm Cid MD PCP - General Family Medicine 01/07/15 documented as of this encounter
--- OUTSIDE RECORDS SUMMARY | 2024-08-04 12:08 | XMS_ITS | Encounter Summary ---
Author Organization [facility] Address [address] [place] [address] Care Team Providers Care Paper Cup Machine Tender Name Role Phone Malcolm Cid MD Primary Care Provider [phone] Malcolm Cid MD Unavailable Wednesday, Alma AQUINON Unavailable [phone] Jayne Del Valle RN Unavailable Merry Paz ORIENTATION AND MOBILITY INSTRUCTOR Unavailable Unavailable Reason for Visit * Reason Onset Date Comments Med Refill 04/13/2023 Encounter Details Date Type Department Care Team (Late st Contact Info) Description 04/13/2023 Refill [facility] [address] [facility] [address] [place] [address] Marina Proctor, PA [address] [place] [address] Rheumatoid arthritis involving multiple sites with positive [...] How often do you attend chur or denominational services? More than 4 times per year 09/14/2022 Do you belong to any clubs o r organizations such as yazdanism groups, unions, fraternal or athletic groups, or [...] care, and heating? Not very hard 09/14/2022 [facility] of Occupat ional Health - Occupational Stress [...] [address] [place] [place] [address] Marina Proctor, PA [address] [place] [address] documented as of this encounter Visit Diagnoses Diagnosis Rheumatoid arthritis involving multiple sites with positive rheumatoid factor ([facility]) Anxiety Anxiety state, unspecified documented in this encounter Care Teams Paper Cup Machine Tender Relationship Specialty Start Date End Date Malcolm Cid MD [address] [place] [address] PCP - General Family Medicine 07/29/22 Malcolm Cid MD [address] [place] [address] PCP - [facility] 05/30/22Wednesday, BREE Marquez [address] [place] [address] Licensed Practical Nurse Family Medicine 06/04/23 Jayne Del Valle, RN Licensed Practical Nurse Family Medicine 04/07/2404/30 Merry Paz LPN 05/19/24 documented as of this encounter
--- OUTSIDE RECORDS SUMMARY | 2024-08-04 12:08 | XMS_ITS | Encounter Summary ---
Author Organization [facility] Address [facility] [place] [address] Care Team Providers Care Portable Machine Sander Name Role Phone Malcolm Cid MD Primary Care Provider [phone]- [phone] Source Comments In the event this information is protected by the Federal Confidentiality of Alcohol and Drug AbusePatient Records regulations: The Federal rules restrict any use of the information to criminally investigate or prosecute any alcohol or drug abuse patient.[facility] Encounter Details Date Type Department Care Team (Late st Contact Info) Description 11/29/2020 Get Medical Advice Kidney Medicine [address] [place], [place] [phone] Madonna Serrano, COMPUTER PROGRAMMER.AMBULANCE OPERATIONS SUPERVISOR [address] [place] [address] RE: Test Result Question Social [...] N ot on file 02/05/2020 Data from: https://www.neighborhoodatlas.[facility]/. Last address used for calculation Not on [...] 04/26/2017 6:15 PM Oralia uHrtado RN * Do you have serious difficulty [...] 10/03/2024 8:00 AM EDT Office Visit Rheumatology [address] [place], [place] [phone] [place] [address] [place], [place] [address] Return in about 9 months (around 10/03/2024). documented as of this encounter Visit Diagnoses Not on filedocumented in this encounter Care Teams Portable Machine Sander Relationship Specialty Start Date End Date Malcolm Cid MD PCP - General Family Medicine 01/07/15 documented as of this encounter
--- OUTSIDE RECORDS SUMMARY | 2024-08-04 12:08 | XMS_ITS | Encounter Summary ---
Author Organization [facility] Address [address] [place] [address] Care Team Providers Care Preventive Medicine Specialist Name Role Phone Malcolm Cid MD Primary Care Provider [phone] Malcolm Cid MD Unavailable Wednesday, Alma AQUINON Unavailable [phone] Jayne Del Valle RN Unavailable Merry Paz FRENCH TEACHER Unavailable Unavailable Encounter Details Date Type Department Care Team (Late st Contact Info) Description 04/01/2023 Abstract [facility] [address] [facility] 110 [place] [id number] Malcolm Cid MD 112 [facility] 110 [place], [place] [address] Social History Tobacco Use Types Packs/Day Years [...] any clubs o r organizations such as moravian groups, unions, fraternal or athletic groups, or [...] care, and heating? Not very hard 09/14/2022 [facility] of Occupat ional Health - Occupational [...] 08/07/2024 11:00 AM EDT Office Visit [facility] [address] [facility] 110 [place] [address] Marina Proctor PA [address] [facility] 110 [place] [address] documented as of this encounter Visit Diagnoses Not on filedocumented in this encounter Care Teams Preventive Medicine Specialist Relationship Specialty Start Date End Date Malcolm Cid MD [address] [facility] 110 [place] [address] PCP - General Family Medicine 07/29/22 Malcolm Cid MD [address] [place] [address] PCP - [facility] 05/30/22Wednesday, BREE Marquez [address] [place] [address] Licensed Practical Nurse Family Medicine 06/04/23 Jayne Del Valle, DELMIS Licensed Practical Nurse Family Medicine 04/07/2404/30 Merry Paz LPN 05/19/24 documented as of this encounter
--- OUTSIDE RECORDS SUMMARY | 2024-08-04 12:08 | XMS_ITS | Encounter Summary ---
Author Organization [facility] Address [address] [place] [address] Care Team Providers Care Bottling Attendant Name Role Phone Malcolm Cid MD Primary Care Provider [phone] Malcolm Cid MD Unavailable Merry Paz LPN Unavailable Unavailable Encounter Details Date Type Department Care Team (Late st Contact Info) Description 07/30/2024 Clinisync Result Encounter [facility] External Department Unsolicited [...] Recorded Patient Health Questionnaire-2 Score 0 05/18/2024 [facility] of Occupat ional Health - Occupational [...] in a mcc (including now)? No 09/14/2022 Housing Stability Vital Sign Answer Sohail e Recorded In the last 12 months, was t here a time when you were not able to pay the mortgage or rent on time? Yes 10/10/2023 In the past 12 months, how m any times have you moved where you were living? 0 10/10/2023 At any time in the past 12 m [facility], were you homeless or living in a mcc (including now)? No 10/10/2023 Sex and Gender [...] Office Visit [facility] [address] [facility] 110 [place] [address] Marina Proctor PA 112 [facility] 110 [place] [address] documented as of this encounter Procedures Procedure Name Priority Date/Time Associated Diagnosis Comments SALMONELLA/SHIGELLA SCREEN Routine 07/30/2024 3:45 PM EDT E COLI SHIGA TOXIN EIA Routine 07/30/2024 3:45 PM EDT documented in this encounter Results * E COLI SHIGA TOXIN EIA (07/30/2024 3:45 PM EDT) E COLI SHIGA TOXIN EIA E coli Shiga Toxin EIA WILL FOLLOW [facility] E COLI SHIGA TOXIN EIA Negative [facility] E COLI SHIGA TOXIN EIA Performed at: [facility] E COLI SHIGA TOXIN EIA [address] [place], [place] [id number] [facility] E COLI SHIGA TOXIN EIA Box Estimator: Surinder Torres PhD, Phone: [phone] [facility] 07/30/2024 3:45 PM EDT 07/30/2024 3:48 PM EDT Narrative [facility] - 08/03/2024 1:10 PM EDT us Generic External Data Provider LAB BLOOD ORDERAB LES Final Result Performing Organization Address City/[facility]/ZIP Co de Phone Number [facility] * SALMONELLA/SHIGELLA SCREEN (07/30/2024 3:45 PM EDT) SALMONELLA/SH IGELLA SCREEN Salmonella/Natty gella Screen [facility] SALMONELLA/SH IGELLA SCREEN Specimen has been received and testing has been initiated. TB SALMONELLA/SH IGELLA SCREEN [facility] SALMONELLA/SH IGELLA SCREEN No Salmonella or Shigella recovered. [facility] 07/30/2024 3:45 PM EDT 07/30/2024 3:48 PM EDT Narrative [facility] - 08/03/2024 1:10 PM EDT us Generic External Data Provider LAB BLOOD ORDERAB LES Final Result [facility] documented in this encounter Visit Diagnoses Not on filedocumented in this encounter Care Teams Bottling Attendant Relationship Specialty Start Date End Date Malcolm Cid MD [address] [facility] 110 [place] [address] PCP - General Family Medicine 07/29/22 Malcolm Cid MD [address] [facility] [address] [place] [address] PCP - [facility] 05/30/22 Merry Paz LPN 05/19/24 documented as of this encounter
--- OUTSIDE RECORDS SUMMARY | 2024-08-04 12:08 | XMS_ITS | Encounter Summary ---
Author Organization [facility] Address [address] [place] [address] Care Team Providers Care Comb Tender Name Role Phone Malcolm Cid MD Primary Care Provider [phone] Malcolm Cid MD Unavailable Wednesday, Alma AQUINON Unavailable [phone] Jayne Del Valle RN Unavailable Merry Paz FINANCIAL SERVICES PROFESSIONAL Unavailable Unavailable Encounter Details Date Type Department Care Team (Late st Contact Info) Description 05/12/2023 Abstract [facility] [address] [facility] 110 [place] [address] Malcolm Cid MD 112 [facility] 110 [place], [place] [phone] Social History Tobacco Use Types Packs/Day Years [...] 08/07/2024 11:00 AM EDT Office Visit [facility] [address] [facility] 110 [place] [address] Marina Proctor PA [address] [place] [address] documented as of this encounter Visit Diagnoses Not on filedocumented in this encounter Care Teams Comb Tender Relationship Specialty Start Date End Date Malcolm Cid MD [address] [place] [address] PCP - General Family Medicine 07/29/22 Malcolm Cid MD [address] [place] [address] PCP - [facility] 05/30/22Wednesday, BREE Marquez [address] [place] [address] Licensed Practical Nurse Family Medicine 06/04/23 Jayne Del Valle, DELMIS Licensed Practical Nurse Family Medicine 04/07/2404/30 Merry Paz LPN 05/19/24 documented as of this encounter
--- OUTSIDE RECORDS SUMMARY | 2024-08-04 12:08 | XMS_ITS | Encounter Summary ---
Author Organization [facility] Address [address] [place] [address] Care Team Providers Care Container Filler Name Role Phone Malcolm Cid MD Primary Care Provider [phone] Source Comments In the event this information is protected by the Federal Confidentiality of Alcohol and Drug AbusePatient Records regulations: The Federal rules restrict any use of the information to criminally investigate or prosecute any alcohol or drug abuse patient.[facility] Encounter Details Date Type Department Care Team (Late st Contact Info) Description 06/18/2020 Patient Msg Kidney Medicine [address] [place], [place] [phone] Marito Velasquez MD [address] [place] [address] results Social History Tobacco Use Types Packs/Day Years Used Date Smoking Tobacco: Never Smokeless Tobacco: Current Chew PHQ-2 Answer Date Recorded PHQ-2 score 4 03/31/2020 Area Deprivation Index Answer Date Adis rded National Score (1-100), lower number is lower ri sk Not on file 02/05/2020 State Score (1-10), lower number is lower risk N ot on file 02/05/2020 Data from: https://www.neighborhoodatlas.medicine.[facility]/. Last address used for calculation Not [...] 10/03/2024 8:00 AM EDT Office Visit Rheumatology [address] [place], [place] [address] [place] [address] [place], [place] [address] Return in about 9 months (around 10/03/2024). documented as of this encounter Visit Diagnoses Not on filedocumented in this encounter Care Teams Container Filler Relationship Specialty Start Date End Date Malcolm Cid MD PCP - General Family Medicine 01/07/15 documented as of this encounter
--- OUTSIDE RECORDS SUMMARY | 2024-08-04 12:08 | XMS_ITS | Encounter Summary ---
Author Organization [facility] Address [address] [place] [address] Care Team Providers Care Mason Foreman/Superintendant Name Role Phone Malcolm Cid MD Primary Care Provider +1- [phone] Source Comments In the event this information is protected by the Federal Confidentiality of Alcohol and Drug AbusePatient Records regulations: The Federal rules restrict any use of the information to criminally investigate or prosecute any alcohol or drug abuse patient.[facility] Encounter Details Date Type Department Care Team (Late st Contact Info) Description 08/19/2020 Patient Msg Rheumatology [address] [place], [place] [phone] [place] [address] [place] [address] August lab reminder Social History Tobacco Use [...] on file 02/05/2020 Data from: https://www.neighborhoodatlas.[facility]/. Last address used for calculation Not on [...] 10/03/2024 8:00 AM EDT Office Visit Rheumatology [address] [place], [place] [phone] [place] [address] [place], [place] [address]237[address] Return in about 9 months (around 10/03/2024). documented as of this encounter Visit Diagnoses Not on filedocumented in this encounter Care Teams Mason Foreman/Superintendant Relationship Specialty Start Date End Date Malcolm Cid MD PCP - General Family Medicine 01/07/15 documented as of this encounter
--- OUTSIDE RECORDS SUMMARY | 2024-08-04 12:08 | XMS_ITS | Encounter Summary ---
Author Organization [facility] Address [facility] [place] [address] Care Team Providers Care Senior Reliability Engineer Name Role Phone Malcolm Cid MD Primary Care Provider [phone]- [phone] Source Comments In the event this information is protected by the Federal Confidentiality of Alcohol and Drug AbusePatient Records regulations: The Federal rules restrict any use of the information to criminally investigate or prosecute any alcohol or drug abuse patient.[facility] Encounter Details Date Type Department Care Team (Late st Contact Info) Description 09/17/2020 Patient Msg Kidney Medicine [address] [place], [place] [phone] Madonna Serrano, IMPLEMENTATION LEAD.DESKTOP OPERATOR [address] [place] [address] RE: BP Social History Tobacco Use Types Packs/Day Years Used Date Smoking Tobacco: Never Smokeless Tobacco: Current Chew PHQ-2 Answer Date Recorded PHQ-2 score 3 08/19/2020 Area Deprivation Index Answer Date Adis rded National Score (1-100), lower number is lower ri sk Not on file 02/05/2020 State Score (1-10), lower number is lower risk N ot on file 02/05/2020 Data from: https://www.neighborhoodatlas.[facility]/. Last address used for calculation Not [...] 10/03/2024 8:00 AM EDT Office Visit Rheumatology [address] [place], [place] [address] [place] [address] [place], [place] [address] Return in about 9 months (around 10/03/2024). documented as of this encounter Visit Diagnoses Not on filedocumented in this encounter Care Teams Senior Reliability Engineer Relationship Specialty Start Date End Date Malcolm Cid MD PCP - General Family Medicine 01/07/15 documented as of this encounter
--- OUTSIDE RECORDS SUMMARY | 2024-08-04 12:08 | XMS_ITS | Encounter Summary ---
Author Organization [facility] Address [address] [place] [address] Care Team Providers Care Stationary Plant Operators Name Role Phone Malcolm Cid MD Primary Care Provider +1- [phone] Source Comments In the event this information is protected by the Federal Confidentiality of Alcohol and Drug AbusePatient Records regulations: The Federal rules restrict any use of the information to criminally investigate or prosecute any alcohol or drug abuse patient.[facility] Encounter Details Date Type Department Care Team (Late st Contact Info) Description 09/16/2023 Patient [facility] [place] [address] Mariah Hutchins RPh At your next appointment, choose [facility] Social History Tobacco Use Types Packs/Day Years Used Date Smoking Tobacco: Never Smokeless Tobacco: Current Chew PHQ-2 Answer Date Recorded PHQ-2 score 4 08/13/2022 Area Deprivation Index Answer Date Adis rded National Score (1-100), lower number is lower ri sk 87 08/14/2022 State Score (1-10), lower number is lower risk 8 08/14/2022 Data from: https://www.neighborhoodatlas.medicine.[facility].edu/. Last address used for calculation [address] [facility] 08/14/2022 Sex and Gender Information [...] 10/03/2024 8:00 AM EDT Office Visit Rheumatology [address] [place] [address] [place] [address] [place] [address] Return in about 9 months (around 10/03/2024). documented as of this encounter Visit Diagnoses Not on filedocumented in this encounter Care Teams Stationary Plant Operators Relationship Specialty Start Date End Date Malcolm Cid MD PCP - General Family Medicine 01/07/15 documented as of this encounter
--- OUTSIDE RECORDS SUMMARY | 2024-08-04 12:08 | XMS_ITS | Encounter Summary ---
Author Organization [facility] Address [facility] [place] [address] Care Team Providers Care Electric Motor Fitter Name Role Phone Malcolm Cid MD Primary Care Provider +1- [phone] Source Comments In the event this information is protected by the Federal Confidentiality of Alcohol and Drug AbusePatient Records regulations: The Federal rules restrict any use of the information to criminally investigate or prosecute any alcohol or drug abuse patient.[facility] Encounter Details Date Type Department Care Team (Late st Contact Info) Description 12/23/2020 Patient Msg Kidney Medicine [address] [place], [place] [phone] Madonna Serrano, PARK AIDE.BUSINESS DEVELOPMENT ENGINEER [address] [place] [address] RE: BP Social History Tobacco [...] ot on file 02/05/2020 Data from: https://www.neighborhoodatlas.[facility]/. Last address used for calculation Not [...] 10/03/2024 8:00 AM EDT Office Visit Rheumatology [address] [place], [place] [address] [place] [address] [place], [place] 3196[address] Return in about 9 months (around 10/03/2024). documented as of this encounter Visit Diagnoses Not on filedocumented in this encounter Care Teams Electric Motor Fitter Relationship Specialty Start Date End Date Malcolm Cid MD PCP - General Family Medicine 01/07/15 documented as of this encounter
--- OUTSIDE RECORDS SUMMARY | 2024-08-04 12:08 | XMS_ITS | Encounter Summary ---
Author Organization [facility] Address [address] [place] [address] Care Team Providers Care Bait Packer Name Role Phone Malcolm Cid MD Primary Care Provider +1- [phone] Source Comments In the event this information is protected by the Federal Confidentiality of Alcohol and Drug AbusePatient Records regulations: The Federal rules restrict any use of the information to criminally investigate or prosecute any alcohol or drug abuse patient.[facility] Encounter Details Date Type Department Care Team (Late st Contact Info) Description 08/19/2020 Patient Msg Rheumatology [address] [place], [place] [phone] [place] [address] [place] [address] October lab reminder Social History Tobacco Use Types Packs/Day Years Used Date Smoking Tobacco: Never Smokeless Tobacco: Current Chew PHQ-2 Answer Date Recorded PHQ-2 score 3 08/19/2020 Area Deprivation Index Answer Date Adis rded National Score (1-100), lower number is lower ri sk Not on file 02/05/2020 State Score (1-10), lower number is lower risk N ot on file 02/05/2020 Data from: https://www.neighborhoodatlas.[facility]/. Last address used for calculation Not [...] 10/03/2024 8:00 AM EDT Office Visit Rheumatology [address] [place], [place] 90[address] [place] [address] [place], [place] 6[address] Return in about 9 months (around 10/03/2024). documented as of this encounter Visit Diagnoses Not on filedocumented in this encounter Care Teams Bait Packer Relationship Specialty Start Date End Date Malcolm Cid MD PCP - General Family Medicine 01/07/15 documented as of this encounter
--- OUTSIDE RECORDS SUMMARY | 2024-08-04 12:08 | XMS_ITS | Encounter Summary ---
Author Organization [facility] Address [address] [place] [address] Care Team Providers Care Judicial Law Clerk Name Role Phone Malcolm Cid MD Primary Care Provider [phone] Source Comments In the event this information is protected by the Federal Confidentiality of Alcohol and Drug AbusePatient Records regulations: The Federal rules restrict any use of the information to criminally investigate or prosecute any alcohol or drug abuse patient.[facility] Encounter Details Date Type Department Care Team (Late st Contact Info) Description 01/04/2024 Patient Msg Rheumatology [address] [place], [place] [id number] [place] [address] [place] [address] Previsit lab reminder Social History Tobacco Use Types Packs/Day Years Used Date Smoking Tobacco: Never Smokeless Tobacco: Current Chew PHQ-2 Answer Date Recorded PHQ-2 score 4 08/13/2022 Area Deprivation Index Answer Date Adis rded National Score (1-100), lower number is lower ri sk 87 08/14/2022 State Score (1-10), lower number is lower risk 8 08/14/2022 Data from: https://www.neighborhoodatlas.[facility]/. Last address [...] 10/03/2024 8:00 AM EDT Office Visit Rheumatology [address] [place], [place] [id number] [place] [address] [place], [place] [address] Return in about 9 months (around 10/03/2024). documented as of this encounter Visit Diagnoses Not on filedocumented in this encounter Care Teams Judicial Law Clerk Relationship Specialty Start Date End Date Malcolm Cid MD PCP - General Family Medicine 01/07/15 documented as of this encounter
--- OUTSIDE RECORDS SUMMARY | 2024-08-04 12:08 | XMS_ITS | Encounter Summary ---
Author Organization [facility] Address [address] [place] [address] Care Team Providers Care Planting Material Remover Name Role Phone Malcolm Cid MD Primary Care Provider [phone] Source Comments In the event this information is protected by the Federal Confidentiality of Alcohol and Drug AbusePatient Records regulations: The Federal rules restrict any use of the information to criminally investigate or prosecute any alcohol or drug abuse patient.[facility] Encounter Details Date Type Department Care Team (Late st Contact Info) Description 09/20/2023 Patient [facility] HB-[address] [place] [address] Nevin Balbuena RPh At your next appointment, choose [facility] Social History Tobacco Use Types Packs/Day Years Used Date Smoking Tobacco: Never Smokeless Tobacco: Current Chew PHQ-2 Answer Date Recorded PHQ-2 score 4 08/13/2022 Area Deprivation Index Answer Date Adis rded National Score (1-100), lower number is lower ri sk 87 08/14/2022 State Score (1-10), lower number is lower risk 8 08/14/2022 Data from: https://www.neighborhoodatlas.medicine.[facility].edu/. Last address used for calculation [address] [facility] 08/14/2022 Sex and Gender Information [...] 10/03/2024 8:00 AM EDT Office Visit Rheumatology [address] [place] [address] [place] [address] [place] [address] Return in about 9 months (around 10/03/2024). documented as of this encounter Visit Diagnoses Not on filedocumented in this encounter Care Teams Planting Material Remover Relationship Specialty Start Date End Date Malcolm Cid MD PCP - General Family Medicine 01/07/15 documented as of this encounter
--- OUTSIDE RECORDS SUMMARY | 2024-08-04 12:08 | XMS_ITS | Encounter Summary ---
Author Organization [facility] Address [address] [place] [address] Care Team Providers Care Savings Counselor Name Role Phone Malcolm Cid MD Primary Care Provider [phone] Malcolm Cid MD Unavailable Wednesday, Alma AQUINON Unavailable [phone] Jayne Del Valle RN Unavailable [phone] Merry Paz FIELD TECHNICAL ASSISTANT Unavailable Unavailable Encounter Details Date Type Department Care Team (Late st Contact Info) Description 06/08/2023 Orders Only [facility] [address] [place] [address] A, Unknown Practice [address] [place] [address] Social History Tobacco Use Types Packs/Day Years [...] Visit [facility] [address] [facility] 110 [place] [address] Marina Proctor PA [address] [facility] 110 [place] [address] documented as of this encounter Procedures Procedure Name Priority Date/Time Associated Diagnosis Comments ELECTROCARDIOGRAM REPORT Routine 024 11:18 AM EDT documented in this encounter Results * Electrocardiogram Report (06/03/2023 11:18 AM EDT) us Unknown Practice A IN CLINIC/BEDSIDE ORDERABLES Final Result documented in this encounter Visit Diagnoses Not on filedocumented in this encounter Care Teams Savings Counselor Relationship Specialty Start Date End Date Malcolm Cid MD [address] [place] [address] PCP - General Family Medicine 07/29/22 Malcolm Cid MD [address] [place] [address] PCP - [facility] 05/30/22WednesdayAlma LPN [address] [place] [address] Licensed Practical Nurse Family Medicine 06/04/23 Jayne Del Valle, RN Licensed Practical Nurse Family Medicine 04/07/2404/30 Merry Paz LPN 05/19/24 documented as of this encounter
--- OUTSIDE RECORDS SUMMARY | 2024-08-04 12:08 | XMS_ITS | Encounter Summary ---
Author Organization [facility] Address [address] [place] [address] Care Team Providers Care Professor Of Exercise Science Name Role Phone Malcolm Cid MD Primary Care Provider [phone] Malcolm Cid MD Unavailable Wednesday, Alma AQUINON Unavailable [phone] Jayne Del Valle RN Unavailable [phone] Merry Paz QUALITY CONTROL SYSTEMS MANAGER Unavailable Unavailable Encounter Details Date Type Department Care Team (Late st Contact Info) Description 03/25/2023 Abstract [facility] [address] [facility] 110 [place] [id number] Malcolm Cid MD 112 [facility] 110 [place], [place] [id number] Social History Tobacco Use Types Packs/Day Years [...] 08/07/2024 11:00 AM EDT Office Visit [facility] [address] [facility] 110 [place] [address] Marina Proctor PA [address] [facility] 110 [place] [address] documented as of this encounter Visit Diagnoses Not on filedocumented in this encounter Care Teams Professor Of Exercise Science Relationship Specialty Start Date End Date Malcolm Cid MD [address] [facility] 110 [place] [address] PCP - General Family Medicine 07/29/22 Malcolm Cid MD [address] [place] [address] PCP - [facility] 05/30/22Wednesday, BREE Marquez [address] [place] [address] Licensed Practical Nurse Family Medicine 06/04/23 Jayne Del Valle, DELMIS Licensed Practical Nurse Family Medicine 04/07/2404/30 Merry Paz LPN 05/19/24 documented as of this encounter
--- OUTSIDE RECORDS SUMMARY | 2024-08-04 12:08 | XMS_ITS | Encounter Summary ---
Author Organization [facility] Address [address] [place] [address] Care Team Providers Care Linux Support Engineer Name Role Phone Malcolm Cid MD Primary Care Provider [phone] Malcolm Cid MD Unavailable Merry Paz LPN Unavailable Unavailable Encounter Details Date Type Department Care Team (Late st Contact Info) Description 07/29/2024 Clinisync Result Encounter [facility] External Department Unsolicited [...] week 10/10/2023 How often do you attend [facility] or quaker services? More than 4 times [...] Recorded Patient Health Questionnaire-2 Score 0 05/18/2024 [facility]at ional Health [...] in the past [address] [facility], were you homeless or living in [...] EDT Office Visit [facility] 112 [facility] 110 [place] [address] Marina Proctor PA 112 [facility] 110 [place] [address] Pending Results Name Type Priority Associated Diagnoses Date /Time BLOOD CULTURE 1 Lab Routine 5 10:00 PM EDT BLOOD CULTURE 2 Lab Routine 5 10:05 PM EDT documented as of this encounter Procedures Procedure Name Priority Date/Time Associated Diagnosis Comments BLOOD CULTURE 2 Routine 07/29/2024 10:05 PM EDT BLOOD CULTURE 1 Routine 07/29/2024 10:00 PM EDT documented in this encounter Visit Diagnoses Not on filedocumented in this encounter Care Teams Linux Support Engineer Relationship Specialty Start Date End Date Malcolm Cid MD [address] [facility] 110 [place] [address] PCP - General Family Medicine 07/29/22 Malcolm Cid MD [address] [facility] 110 [place] [address] PCP - [facility] 05/30/22 Merry Paz LPN 05/19/24 documented as of this encounter
--- OUTSIDE RECORDS SUMMARY | 2024-08-04 12:08 | XMS_ITS | Encounter Summary ---
Author Organization [facility] Address [facility] [place] [address] Care Team Providers Care Special Agent Name Role Phone Malcolm Cid MD Primary Care Provider [phone] Source Comments In the event this information is protected by the Federal Confidentiality of Alcohol and Drug AbusePatient Records regulations: The Federal rules restrict any use of the information to criminally investigate or prosecute any alcohol or drug abuse patient.[facility] Encounter Details Date Type Department Care Team (Late st Contact Info) Description 12/25/2020 Get Medical Advice Kidney Medicine [address] [place], [place] [id number] Madonna Serrano, BRANCH OPERATIONS MANAGER.HUMAN RESOURCES PSYCHOLOGIST [address] [place] [address] RE: Visit Follow Up Question [...] N ot on file 02/05/2020 Data from: https://www.neighborhoodatlas.[facility]/. Last address used for calculation [...] 10/03/2024 8:00 AM EDT Office Visit Rheumatology [address] [place], [place] [id number] [place] [address] [place], [place] [id number] Return in about 9 months (around 10/03/2024). documented as of this encounter Visit Diagnoses Not on filedocumented in this encounter Care Teams Special Agent Relationship Specialty Start Date End Date Malcolm Cid MD PCP - General Family Medicine 01/07/15 documented as of this encounter
--- OUTSIDE RECORDS SUMMARY | 2024-08-04 12:08 | XMS_ITS | Encounter Summary ---
Author Organization [facility] Address [address] [place] [address] Care Team Providers Care Pickling Tank Operator Name Role Phone Malcolm Cid MD Primary Care Provider [phone] Source Comments In the event this information is protected by the Federal Confidentiality of Alcohol and Drug AbusePatient Records regulations: The Federal rules restrict any use of the information to criminally investigate or prosecute any alcohol or drug abuse patient.[facility] Encounter Details Date Type Department Care Team (Late st Contact Info) Description 12/02/2020 Patient Msg Rheumatology [address] [place], [place] [id number] [place] [address] [place] [address] Previsit lab reminder Social History Tobacco Use Types Packs/Day Years Used Date Smoking Tobacco: Never Smokeless Tobacco: Current Chew PHQ-2 Answer Date Recorded PHQ-2 score 3 08/19/2020 Area Deprivation Index Answer Date Adis rded National Score (1-100), lower number is lower ri sk Not on file 02/05/2020 State Score (1-10), lower number is lower risk N ot on file 02/05/2020 Data from: https://www.neighborhoodatlas.[facility]/. Last address used for calculation Not on [...] Assessment Author No 04/26/2017 6:15 PM Oralia Hurtdao RN * Do you have serious difficulty [...] 10/03/2024 8:00 AM EDT Office Visit Rheumatology [address] [place] [address] [place] [address] [place], [place] [id number] Return in about 9 months (around 10/03/2024). documented as of this encounter Visit Diagnoses Not on filedocumented in this encounter Care Teams Pickling Tank Operator Relationship Specialty Start Date End Date Malcolm Cid MD PCP - General Family Medicine 01/07/15 documented as of this encounter
--- OUTSIDE RECORDS SUMMARY | 2024-08-04 12:08 | XMS_ITS | Encounter Summary ---
Author Organization [facility] Address [address] [place] [address] Care Team Providers Care Policy Cancellation Clerk Name Role Phone Malcolm Cid MD Primary Care Provider [phone] Malcolm Cid MD Unavailable Wednesday, Alma AQUINON Unavailable [phone] Jayne Del Valle RN Unavailable [phone] Merry Paz LPN Unavailable Unavailable Encounter Details Date Type Department Care Team (Late st Contact Info) Description 05/10/2023 Orders Only [facility] [address] [place] [address] A, Unknown Practice [address] [place] [address] Social History Tobacco Use Types Packs/Day Years [...] any clubs o r organizations such as oriental orthodox groups, unions, [...] 08/07/2024 11:00 AM EDT Office Visit [facility] [address] [facility] 110 [place] [address] Marina Proctor PA [address] [facility] 110 [place] [address] documented as of this encounter Procedures Procedure Name Priority Date/Time Associated Diagnosis Comments ELECTROCARDIOGRAM REPORT Routine 024 1:03 PM EST documented in this encounter Results * Electrocardiogram Report (05/08/2023 1:03 PM EST) us Unknown Practice A IN CLINIC/BEDSIDE ORDERABLES Final Result documented in this encounter Visit Diagnoses Not on filedocumented in this encounter Care Teams Policy Cancellation Clerk Relationship Specialty Start Date End Date Malcolm Cid MD [address] [place] [address] PCP - General Family Medicine 07/29/22 Malcolm Cid MD [address] [place] [address] PCP - [facility] 05/30/22WednesdayAlma LPN [address] [place] [address] Licensed Practical Nurse Family Medicine 06/04/23 Jayne Del Valle, RN Licensed Practical Nurse Family Medicine 04/07/2404/30 Merry Paz LPN 05/19/24 documented as of this encounter"
--- OUTSIDE RECORDS SUMMARY | 2024-08-04 12:08 | XMS_ITS | Encounter Summary ---
Author Organization [facility] Address [address] [place] [address] Care Team Providers Care Correctional Officer Chief Name Role Phone Malcolm Cid MD Primary Care Provider [phone] Source Comments In the event this information is protected by the Federal Confidentiality of Alcohol and Drug AbusePatient Records regulations: The Federal rules restrict any use of the information to criminally investigate or prosecute any alcohol or drug abuse patient.[facility] Encounter Details Date Type Department Care Team (Late st Contact Info) Description 09/08/2023 Patient Msg Pediatrics [place] [address] [place] [address] Provider, [facility] Rheumatology Appointment Cancellation Social History Tobacco Use Types Packs/Day Years Used Date Smoking Tobacco: Never Smokeless Tobacco: Current Chew PHQ-2 Answer Date Recorded PHQ-2 score 4 08/13/2022 Area Deprivation Index Answer Date Adis rded National Score (1-100), lower number is lower ri sk 87 08/14/2022 State Score (1-10), lower number is lower risk 8 08/14/2022 Data from: https://www.neighborhoodatlas.medicine.[facility].edu/. Last address used for calculation [address] [...] 10/03/2024 8:00 AM EDT Office Visit Rheumatology [address] [place] [address] [place] [address] [place] [address] Return in about 9 months (around 10/03/2024). documented as of this encounter Visit Diagnoses Not on filedocumented in this encounter Care Teams Correctional Officer Chief Relationship Specialty Start Date End Date Malcolm Cid MD PCP - General Family Medicine 01/07/15 documented as of this encounter
--- OUTSIDE RECORDS SUMMARY | 2024-08-04 12:08 | XMS_ITS | Encounter Summary ---
Author Organization [facility] Address [address] [place] [address] Care Team Providers Care Purchasing Specialist Name Role Phone Malcolm Cid MD Primary Care Provider [phone] Malcolm Cid MD Unavailable Wednesday, Alma AQUINON Unavailable [phone] Jayne Del Valle RN Unavailable [phone] Merry Paz OFFICE MACHINES SALES REPRESENTATIVE Unavailable Unavailable Encounter Details Date Type Department Care Team (Late st Contact Info) Description 06/15/2023 Abstract [facility] [address] [facility] 110 [place] [address] Malcolm Cid MD 112 [facility] 110 [place], [place] [phone] Social History Tobacco Use Types Packs/Day Years [...] care, and heating? Not very hard 09/14/2022 [facility] Occupat ional Health - [...] Visit [facility] [address] [place] [address] [place] [address] Marina Proctor PA [address] [place] [address] documented as of this encounter Visit Diagnoses Not on filedocumented in this encounter Care Teams Purchasing Specialist Relationship Specialty Start Date End Date Malcolm Cid MD [address] [place] [address] PCP - General Family Medicine 07/29/22 Malcolm Cid MD [address] [place] [address] PCP - [facility] 05/30/22Wednesday, BREE Marquez [address] [place] [address] Licensed Practical Nurse Family Medicine 06/04/23 Jayne Del Valle, DELMIS Licensed Practical Nurse Family Medicine 04/07/2404/30 Merry Paz LPN 05/19/24 documented as of this encounter
--- OUTSIDE RECORDS SUMMARY | 2024-08-04 12:08 | XMS_ITS | Encounter Summary ---
Author Organization [facility] Address [address] [place] [address] Care Team Providers Care Bagging Machine Operator Name Role Phone Malcolm Cid MD Primary Care Provider [phone] Malcolm Cid MD Unavailable Wednesday, Alma AQUINON Unavailable [phone] Jayne Del Valle RN Unavailable Merry Paz HEALTH IT SPECIALIST Unavailable Unavailable Encounter Details Date Type Department Care Team (Late st Contact Info) Description 05/11/2023 Abstract [facility] [address] [facility] 110 [place] [address] Malcolm Cid MD 112 [facility] 110 [place], [place] [phone] Social History Tobacco Use Types Packs/Day Years [...] and heating? Not very hard 09/14/2022 [facility] Occupat ional Health - [...] 08/07/2024 11:00 AM EDT Office Visit [facility] [address] [facility] 110 [place] [address] Marina Proctor PA [address] [place] [address] documented as of this encounter Visit Diagnoses Not on filedocumented in this encounter Care Teams Bagging Machine Operator Relationship Specialty Start Date End Date Malcolm Cid MD [address] [place] [address] PCP - General Family Medicine 07/29/22 Malcolm Cid MD [address] [place] [address] PCP - [facility] 05/30/22Wednesday, BREE Marquez [address] [place] [address] Licensed Practical Nurse Family Medicine 06/04/23 Jayne Del Valle, DELMIS Licensed Practical Nurse Family Medicine 04/07/2404/30 Merry Paz LPN 05/19/24 documented as of this encounter
--- OUTSIDE RECORDS SUMMARY | 2024-08-04 12:09 | XMS_ITS | Encounter Summary ---
Author Organization [facility] Address [address] [place] [address] Care Team Providers Care Thread Separator Name Role Phone Malcolm Cid MD Primary Care Provider [phone] Source Comments In the event this information is protected by the Federal Confidentiality of Alcohol and Drug AbusePatient Records regulations: The Federal rules restrict any use of the information to criminally investigate or prosecute any alcohol or drug abuse patient.[facility] Encounter Details Date Type Department Care Team (Late st Contact Info) Description 09/28/2017 Patient Msg Medical Records [address] [place] [address] Provider, [facility] Oct lab reminder Social History [...] 10/03/2024 8:00 AM EDT Office Visit Rheumatology [address] [place] [address] [place] [address] [place] [address] Return in about 9 months (around 10/03/2024). documented as of this encounter Visit Diagnoses Not on filedocumented in this encounter Care Teams Thread Separator Relationship Specialty Start Date End Date Malcolm Cid MD PCP - General Family Medicine 01/07/15 documented as of this encounter
--- OUTSIDE RECORDS SUMMARY | 2024-08-04 12:09 | XMS_ITS | Encounter Summary ---
Author Organization [facility] Address [address] [place] [address] Care Team Providers Care Finance Attorney Name Role Phone Malcolm Cid MD Primary Care Provider [phone] Malcolm Cid MD Unavailable Wednesday, Alma AQUINON Unavailable [phone] Jayne Del Valle RN Unavailable Merry Paz BUSINESS OBJECTS Unavailable Unavailable Encounter Details Date Type Department Care Team (Late st Contact Info) Description 01/04/2024 Abstract [facility] [address] [facility] 110 [place] [address] Malcolm Cid MD [address] [facility] 110 [place], [place] [phone] Social History Tobacco Use Types Packs/Day Years [...] week 10/10/2023 How often do you attend [facility] or muslim services? More than 4 times [...] care, and heating? Not very hard 10/10/2023 [facility] [place] of Occupat ional Health - Occupational Stress [...] any time in the past [facility], were you homeless or living in [...] [address] [place] [address] Marina Proctor, PA [address] [place] [address] documented as of this encounter Visit Diagnoses Not on filedocumented in this encounter Care Teams Finance Attorney Relationship Specialty Start Date End Date Malcolm Cid MD [address] [facility] 110 [place] [address] PCP - General Family Medicine 07/29/22 Malcolm Cid MD [address] [facility] [address] [place] [address] PCP - [facility] 05/30/22Wednesday, BREE Marquez [address] [facility] 110 [place] [address] Licensed Practical Nurse Family Medicine 06/04/23 Jayne Del Valle, RN Licensed Practical Nurse Family Medicine 04/07/2404/30 Merry Paz LPN 05/19/24 documented as of this encounter
--- OUTSIDE RECORDS SUMMARY | 2024-08-04 12:09 | XMS_ITS | Encounter Summary ---
Author Organization [facility] Address [address] [place] [address] Care Team Providers Care Emu Farmer Name Role Phone Malcolm Cid MD Primary Care Provider [phone] Malcolm Cid MD Unavailable Wednesday, Alma UNISHEAR OPERATOR Unavailable [phone] Jayne Del Valle RN Unavailable Merry Paz UNISHEAR OPERATOR Unavailable Unavailable Encounter Details Date Type Department Care Team (Late st Contact Info) Description 08/17/2022 Abstract [facility] [address] [facility] 110 [place] [id number] Malcolm Cid MD [address] [facility] 110 [place] [address] Social History Tobacco Use Types Packs/Day Years [...] [address] [facility] 110 [place] [address] Marina Proctor, PA [address] [place] [address] documented as of this encounter Visit Diagnoses Not on filedocumented in this encounter Care Teams Emu Farmer Relationship Specialty Start Date End Date Malcolm Cid MD [address] [place] [address] PCP - General Family Medicine 07/29/22 Malcolm Cid MD [address] [place] [address] PCP - [facility] 05/30/22Wednesday, BREE Marquez [address] [place] [address] Licensed Practical Nurse Family Medicine 06/04/23 Jayne Del Valle, RN Licensed Practical Nurse Family Medicine 04/07/2404/30 Merry Paz LPN 05/19/24 documented as of this encounter
--- OUTSIDE RECORDS SUMMARY | 2024-08-04 12:09 | XMS_ITS | Encounter Summary ---
Author Organization [facility] Address [address] [place] [address] Care Team Providers Care Plaster Machine Operator Name Role Phone Malcolm Cid MD Primary Care Provider [phone] Source Comments In the event this information is protected by the Federal Confidentiality of Alcohol and Drug AbusePatient Records regulations: The Federal rules restrict any use of the information to criminally investigate or prosecute any alcohol or drug abuse patient.[facility] Encounter Details Date Type Department Care Team (Late st Contact Info) Description 09/27/2017 Patient Msg Pediatric Rheumatology [address] [place], [place] [id number] Provider, Ccf Regarding refill request Social History [...] 10/03/2024 8:00 AM EDT Office Visit Rheumatology [address] [place] [address] [place] [address] [place] [address] Return in about 9 months (around 10/03/2024). documented as of this encounter Visit Diagnoses Not on filedocumented in this encounter Care Teams Plaster Machine Operator Relationship Specialty Start Date End Date Malcolm Cid MD PCP - General Family Medicine 01/07/15 documented as of this encounter
--- OUTSIDE RECORDS SUMMARY | 2024-08-04 12:09 | XMS_ITS | Encounter Summary ---
Author Organization [facility] Address [address] [place] [address] Care Team Providers Care Quill Winder Name Role Phone Malcolm Cid MD Primary Care Provider [phone] Malcolm Cid MD Unavailable Wednesday, Alma AQUINON Unavailable [phone] Jayne Del Valle RN Unavailable [phone] Merry Paz HYDRAULIC RUBBISH COMPACTOR MECHANIC Unavailable Unavailable Encounter Details Date Type Department Care Team (Late st Contact Info) Description 01/11/2023 Abstract [facility] [address] [facility] 110 [place] [address] Malcolm Cid MD 112 [facility] 110 [place], [place] [address] Social History Tobacco Use Types Packs/Day Years [...] How often do you attend chur or latter day services? More than 4 times per year 09/14/2022 Do you belong to any clubs o r organizations such as baptist groups, unions, fraternal or athletic groups, or [...] care, and heating? Not very hard 09/14/2022 [facility] of Occupat ional Health [...] EDT Office Visit [facility] 112 [facility] 110 [place] [address] Marina Proctor PA [address] [facility] 110 [place] [address] documented as of this encounter Visit Diagnoses Not on filedocumented in this encounter Care Teams Quill Winder Relationship Specialty Start Date End Date Malcolm Cid MD [address] [facility] 110 [place] [address] PCP - General Family Medicine 07/29/22 Malcolm Cid MD [address] [facility] 110 [place] [address] PCP - [facility] 05/30/22Wednesday, BREE Marquez [address] [facility] 110 [place] [address] Licensed Practical Nurse Family Medicine 06/04/23 Jayne Del Valle, RN Licensed Practical Nurse Family Medicine 04/07/2404/30 Merry Paz LPN 05/19/24 documented as of this encounter
--- OUTSIDE RECORDS SUMMARY | 2024-08-04 12:09 | XMS_ITS | Encounter Summary ---
Author Organization [facility] Address [address] [place] [address] Care Team Providers Care Facility Engineer Name Role Phone Malcolm Cid MD Primary Care Provider [phone] Malcolm Cid MD Unavailable Wednesday, Alma AQUIONN Unavailable [phone] Jayne Del Valle RN Unavailable [phone] Merry Paz THROAT CUTTER Unavailable Unavailable Encounter Details Date Type Department Care Team (Late st Contact Info) Description 01/12/2023 Abstract [facility] [address] [facility] 110 [place] [address] Malcolm Cid MD 112 [facility] 110 [place], [place] [id number] Social History Tobacco Use Types Packs/Day Years [...] Office Visit [facility] [address] [facility] 110 [place] [address] Marina Proctor PA [address] [facility] 110 [place] [address] documented as of this encounter Visit Diagnoses Not on filedocumented in this encounter Care Teams Facility Engineer Relationship Specialty Start Date End Date Malcolm Cid MD [address] [facility] 110 [place] [address] PCP - General Family Medicine 07/29/22 Malcolm Cid MD [address] [facility] 110 [place] [address] PCP - [facility] 05/30/22Wednesday, BREE Marquez [address] [facility] 110 [place] [address] Licensed Practical Nurse Family Medicine 06/04/23 Jayne Del Valle, RN Licensed Practical Nurse Family Medicine 04/07/2404/30 Merry Paz LPN 05/19/24 documented as of this encounter
--- OUTSIDE RECORDS SUMMARY | 2024-08-04 12:09 | XMS_ITS | Encounter Summary ---
Author Organization [facility] Address [address] [place] [address] Care Team Providers Care Degreasing Wheel Operator Name Role Phone Malcolm Cid MD Primary Care Provider [phone] Malcolm Cid MD Unavailable Wednesday, Alma AQUINON Unavailable [phone] Jayne Del Valle RN Unavailable Merry Paz CAMPUS RECRUITING INTERN Unavailable Unavailable Encounter Details Date Type Department Care Team (Late st Contact Info) Description 02/17/2023 Abstract [facility] [address] [facility] 110 [place] [address] Malcolm Cid MD 112 [facility] 110 [place], [place] [address] Social History Tobacco Use Types Packs/Day Years [...] care, and heating? Not very hard 09/14/2022 [facility] of Occupat ional Health - Occupational [...] 08/07/2024 11:00 AM EDT Office Visit [facility] [address] [facility] 110 [place] [address] Marina Proctor PA [address] [facility] 110 [place] [address] documented as of this encounter Visit Diagnoses Not on filedocumented in this encounter Care Teams Degreasing Wheel Operator Relationship Specialty Start Date End Date Malcolm Cid MD [address] [facility] 110 [place] [address] PCP - General Family Medicine 07/29/22 Malcolm Cid MD [address] [place] [address] [place] [address] PCP - [facility] 05/30/22Wednesday, BREE Marquez [address] [place] [address] Licensed Practical Nurse Family Medicine 06/04/23 Jayne Del Valle, DELMIS Licensed Practical Nurse Family Medicine 04/07/2404/30 Merry Paz LPN 05/19/24 documented as of this encounter
--- OUTSIDE RECORDS SUMMARY | 2024-08-04 12:09 | XMS_ITS | Encounter Summary ---
Author Organization [facility] Address [address] [place] [address] Care Team Providers Care Washer Machine Name Role Phone Malcolm Cid MD Primary Care Provider [phone] Malcolm Cid MD Unavailable Wednesday, Alma AQUINON Unavailable [phone] Jayne Del Valle RN Unavailable Merry Paz WATER PROJECT MANAGER Unavailable Unavailable Encounter Details Date Type Department Care Team (Late st Contact Info) Description 02/15/2023 Abstract [facility] [address] [facility] 110 [place] [address] Malcolm Cid MD 112 [facility] 110 [place], [place] [address] Social History Tobacco Use Types Packs/Day Years [...] 08/07/2024 11:00 AM EDT Office Visit [facility] [address] [facility] 110 [place] [address] Marina Proctor PA [address] [facility] 110 [place] [address] documented as of this encounter Visit Diagnoses Not on filedocumented in this encounter Care Teams Washer Machine Relationship Specialty Start Date End Date Malcolm Cid MD [address] [facility] 110 [place] [address] PCP - General Family Medicine 07/29/22 Malcolm Cid MD [address] [place] [address] [place] [address] PCP - [facility] 05/30/22Wednesday, BREE Marquez [address] [place] [address] Licensed Practical Nurse Family Medicine 06/04/23 Jayne Del Valle, DELMIS Licensed Practical Nurse Family Medicine 04/07/2404/30 Merry Paz LPN 05/19/24 documented as of this encounter
--- OUTSIDE RECORDS SUMMARY | 2024-08-04 12:09 | XMS_ITS | Encounter Summary ---
Author Organization [facility] Address [address] [place] [address] Care Team Providers Care Marketing Operations Analyst Name Role Phone Malcolm Cid MD Primary Care Provider [phone] Malcolm Cid MD Unavailable Wednesday, Alma AQUINON Unavailable [phone] Jayne Del Valle RN Unavailable Merry Paz LANGUAGE THERAPIST Unavailable Unavailable Encounter Details Date Type Department Care Team (Late st Contact Info) Description 01/17/2024 Abstract [facility] 112 [facility] 110 [place] [address] Malcolm Cid MD 112 [facility] 110 [place], [place] [address] Social History Tobacco Use Types Packs/Day Years [...] How often do you attend chur or pentecostal services? More than 4 times per year 10/10/2023 Do you belong to any clubs o r organizations such as synagogue groups, unions, fraternal or athletic groups, or [...] care, and heating? Not very hard 10/10/2023 [facility] of Occupat ional Health - Occupational Stress [...] in the past 12 m [facility], were you homeless or living in [...] FM [address] [place] [address] [place] [address] Marina Proctor PA [address] [facility] [address] [place] [address] documented as of this encounter Visit Diagnoses Not on filedocumented in this encounter Care Teams Marketing Operations Analyst Relationship Specialty Start Date End Date Malcolm Cid MD [address] [place] [address] [place] [address] PCP - General Family Medicine 07/29/22 Malcolm Cid MD [address] [facility] [address] [place] [address] PCP - [facility] 05/30/22Wednesday, BREE Marquez [address] [place] [address] Licensed Practical Nurse Family Medicine 06/04/23 Jayne Del Valle, RN Licensed Practical Nurse Family Medicine 04/07/2404/30 Merry Paz LPN 05/19/24 documented as of this encounter
--- OUTSIDE RECORDS SUMMARY | 2024-08-04 12:09 | XMS_ITS | Encounter Summary ---
Author Organization [facility] Address [address] [place] [address] Care Team Providers Care Public Defender Name Role Phone Malcolm Cid MD Primary Care Provider [phone] Malcolm Cid MD Unavailable Wednesday, Alma AQUINON Unavailable [phone] Jayne Del Valle RN Unavailable Merry Paz BLOCK MASON Unavailable Unavailable Reason for Visit * Reason Comments Med Refill Encounter Details Date Type Department Care Team (Late st Contact Info) Description 12/03/2022 Refill [facility] [address] [facility] 110 [place] [address] Marina Proctor, PA [address] [facility] 110 [place] [address] Rheumatoid arthritis, unspecified (CMS/HCC) Social History Tobacco [...] How often do you attend chur or caodaism services? More than 4 times per year [...] care, and heating? Not very hard 09/14/2022 [facility] of Occupat ional Health [...] [facility] 110 [place] [address] Marina Proctor PA [address] [facility] 110 [place] [address] documented as of this encounter Visit Diagnoses Diagnosis Rheumatoid arthritis, unspecified documented in this encounter Care Teams Public Defender Relationship Specialty Start Date End Date Malcolm Cid MD [address] [place] [address] [place] [address] PCP - General Family Medicine 07/29/22 Malcolm Cid MD [address] [place] 110 [place] [address] PCP - [facility] 05/30/22Wednesday, BREE Marquez [address] [place] [address] Licensed Practical Nurse Family Medicine 06/04/23 Jayne Del Valle, RN Licensed Practical Nurse Family Medicine 04/07/2404/30 Merry Paz LPN 05/19/24 documented as of this encounter
--- OUTSIDE RECORDS SUMMARY | 2024-08-04 12:09 | XMS_ITS | Encounter Summary ---
Author Organization [facility] Address [address] [place] [address] Care Team Providers Care Cavalry Officer Name Role Phone Malcolm Cid MD Primary Care Provider [phone] Malcolm Cid MD Unavailable Wednesday, Alma AQUINON Unavailable [phone] Jayne Del Valle RN Unavailable Merry Paz MEDICAL TECHNICIANS Unavailable Unavailable Encounter Details Date Type Department Care Team (Late st Contact Info) Description 01/20/2023 Abstract [facility] [address] [facility] 110 [place] [address] Malcolm Cid MD 112 [facility] 110 [place], [place] [address] Social History Tobacco Use Types Packs/Day Years [...] FM [address] [facility] 110 [place] [address] Marina Proctor PA [address] [place] [facility] 110 [place] [address] documented as of this encounter Visit Diagnoses Not on filedocumented in this encounter Care Teams Cavalry Officer Relationship Specialty Start Date End Date Malcolm Cid MD [address] [facility] 110 [place] [address] PCP - General Family Medicine 07/29/22 Malcolm Cid MD [address] [facility] 110 [place] [address] PCP - [facility] 05/30/22Wednesday, BREE Marquez [address] [facility] 110 [place] [address] Licensed Practical Nurse Family Medicine 06/04/23 Jayne Del Valle, RN Licensed Practical Nurse Family Medicine 04/07/2404/30 Merry Paz LPN 05/19/24 documented as of this encounter
--- OUTSIDE RECORDS SUMMARY | 2024-08-04 12:09 | XMS_ITS | Encounter Summary ---
Author Organization [facility] Address [address] [place] [address] Care Team Providers Care Security Threat Analyst Name Role Phone Malcolm Cid MD Primary Care Provider [phone] Source Comments In the event this information is protected by the Federal Confidentiality of Alcohol and Drug AbusePatient Records regulations: The Federal rules restrict any use of the information to criminally investigate or prosecute any alcohol or drug abuse patient.[facility] Encounter Details Date Type Department Care Team (Late st Contact Info) Description 12/06/2017 Patient Msg Medical Records [address] [place] [address] Provider, Ccf Labs needed for Dr. Castro [...] 10/03/2024 8:00 AM EDT Office Visit Rheumatology [address] [place] [address] [place] [address] [place] [address] Return in about 9 months (around 10/03/2024). documented as of this encounter Visit Diagnoses Not on filedocumented in this encounter Care Teams Security Threat Analyst Relationship Specialty Start Date End Date Malcolm Cid MD PCP - General Family Medicine 01/07/15 documented as of this encounter
--- OUTSIDE RECORDS SUMMARY | 2024-08-04 12:09 | XMS_ITS | Encounter Summary ---
Author Organization [facility] Address [address] [place] [address] Care Team Providers Care Ecological Modeler Name Role Phone Malcolm iCd MD Primary Care Provider [phone] Malcolm Cid MD Unavailable Wednesday, Alma AQUINON Unavailable [phone] Jayne Del Valle RN Unavailable Merry Paz SCREEN OPERATOR Unavailable Unavailable Encounter Details Date Type Department Care Team (Late st Contact Info) Description 02/09/2024 Abstract [facility] 112 [facility] 110 [place] [address] Malcolm Cid MD 112 [facility] 110 [place], [place] [address] Social History Tobacco Use Types Packs/Day Years [...] How often do you attend chur or sabianism services? More than 4 times per year [...] care, and heating? Not very hard 10/10/2023 [facility] of Occupat ional Health - Occupational [...] in a half-way (including now)? No 09/14/2022 Housing Stability Vital [...] time in the past 12 m [facility], were you homeless or living in a half-way (including now)? No 10/10/2023 Sex and Gender [...] FM [address] [place] [address] [place] [address] Marina Proctor PA [address] [facility] [address] [place] [address] documented as of this encounter Visit Diagnoses Not on filedocumented in this encounter Care Teams Ecological Modeler Relationship Specialty Start Date End Date Malcolm Cid MD [address] [facility] [address] [place] [address] PCP - General Family Medicine 07/29/22 Malcolm Cid MD [address] [facility] [address] [place] [address] PCP - [facility] 05/30/22Wednesday, BREE Marquez [address] [place] [address] Licensed Practical Nurse Family Medicine 06/04/23 Jayne Del Valle, RN Licensed Practical Nurse Family Medicine 04/07/2404/30 Merry Paz LPN 05/19/24 documented as of this encounter
--- OUTSIDE RECORDS SUMMARY | 2024-08-04 12:09 | XMS_ITS | Encounter Summary ---
Author Organization [facility] Address [address] [place] [address] Care Team Providers Care Shrimp Trawler Name Role Phone Malcolm Cid MD Primary Care Provider [phone] Malcolm Cid MD Unavailable Wednesday, Alma AQUINON Unavailable [phone] Jayne Del Valle RN Unavailable [phone] Merry Paz COAL GASIFICATION TECHNICIAN Unavailable Unavailable Encounter Details Date Type Department Care Team (Late st Contact Info) Description 02/15/2023 Abstract [facility] [address] [facility] 110 [place] [address] Malcolm Cid MD 112 [facility] 110 [place], [place] [address] Social History Tobacco Use Types Packs/Day Years [...] care, and heating? Not very hard 09/14/2022 [facility] of Occupat ional Health - Occupational [...] 08/07/2024 11:00 AM EDT Office Visit [facility] [address] [facility] 110 [place] [address] Marina Proctor PA [address] [facility] 110 [place] [address] documented as of this encounter Visit Diagnoses Not on filedocumented in this encounter Care Teams Shrimp Trawler Relationship Specialty Start Date End Date Malcolm Cid MD [address] [facility] 110 [place] [address] PCP - General Family Medicine 07/29/22 Malcolm Cid MD [address] [place] [address] [place] [address] PCP - [facility] 05/30/22Wednesday, BREE Marquez [address] [place] [address] Licensed Practical Nurse Family Medicine 06/04/23 Jayne Del Valle, DELMIS Licensed Practical Nurse Family Medicine 04/07/2404/30 Merry Paz LPN 05/19/24 documented as of this encounter
--- OUTSIDE RECORDS SUMMARY | 2024-08-04 12:09 | XMS_ITS | Encounter Summary ---
Author Organization [facility] Address [address] [place] [address] Care Team Providers Care Buckle Coverer Name Role Phone Malcolm Cid MD Primary Care Provider [phone] Malcolm Cid MD Unavailable Wednesday, Alma AQUINON Unavailable [phone] Jayne Del Valle RN Unavailable [phone] Merry Paz PIECE GOODS PACKER Unavailable Unavailable Encounter Details Date Type Department Care Team (Late st Contact Info) Description 12/03/2022 Orders Only [facility] [address] [place] [address] [place] [address] A, Unknown Practice [address] [place] [address] Social History Tobacco Use Types Packs/Day Years [...] often do you attend chur ch or church services? More than 4 times [...] hard 09/14/2022 [facility] of Occupat ionme Health - Occupational Stress Questionnaire Answer Date [...] Visit [facility] [address] [facility] 110 [place] [address] Marina Proctor PA [address] [facility] 110 [place] [address] documented as of this encounter Procedures Procedure Name Priority Date/Time Associated Diagnosis Comments ELECTROCARDIOGRAM REPORT Routine 023 8:39 AM EDT documented in this encounter Results * Electrocardiogram Report (12/02/2022 8:39 AM EDT) us Unknown Practice A IN CLINIC/BEDSIDE ORDERABLES Final Result documented in this encounter Visit Diagnoses Not on filedocumented in this encounter Care Teams Buckle Coverer Relationship Specialty Start Date End Date Malcolm Cid MD [address] [facility] 110 [place] [address] PCP - General Family Medicine 07/29/22 Malcolm Cid MD [address] [facility] [address] [place] [address] PCP - [facility] 05/30/22Wednesday, BREE Marquez [address] [place] [address] Licensed Practical Nurse Family Medicine 06/04/23 Jayne Del Valle, RN Licensed Practical Nurse Family Medicine 04/07/2404/30 Merry Paz LPN 05/19/24 documented as of this encounter
--- OUTSIDE RECORDS SUMMARY | 2024-08-04 12:09 | XMS_ITS | Encounter Summary ---
Author Organization [facility] Address [address] [place] [address] Care Team Providers Care Laboratory Equipment Installer Name Role Phone Malcolm Cid MD Primary Care Provider [phone] Malcolm Cid MD Unavailable Wednesday, Alma AQUINON Unavailable [phone] Jayne Del Valle RN Unavailable [phone] Merry Paz SENIOR SUSTAINABILITY ADVISOR Unavailable Unavailable Encounter Details Date Type Department Care Team (Late st Contact Info) Description 09/29/2022 Orders Only [facility] [address] [place] [address] [place] [address] A, Unknown Practice [address] [place] [address] Social History Tobacco Use Types Packs/Day Years [...] 09/14/2022 [facility] of Occupat ionri Health - Occupational Stress Questionnaire Answer Date [...] 08/07/2024 11:00 AM EDT Office Visit [facility] [address] [facility] 110 [place] [address] Marina Proctor PA 112 [facility] 110 [place] [address] documented as of this encounter Procedures Procedure [...] on filedocumented in this encounter Care Teams Laboratory Equipment Installer Relationship Specialty Start Date End Date Malcolm Cid MD [address] [place] [address] [place] [address] PCP - General Family Medicine 07/29/22 Malcolm Cid MD [address] [place] [address] [place] [address] PCP - [facility] 05/30/22WednesdayAlma LPN [address] [place] [address] Licensed Practical Nurse Family Medicine 06/04/23 Jayne Del Valle, RN Licensed Practical Nurse Family Medicine 04/07/2404/30 Merry Paz LPN 05/19/24 documented as of this encounter
--- OUTSIDE RECORDS SUMMARY | 2024-08-04 12:09 | XMS_ITS | Encounter Summary ---
Author Organization [facility] Address [address] [place] [address] Care Team Providers Care Terrazzo Layer Name Role Phone Malcolm Cid MD Primary Care Provider [phone] Malcolm Cid MD Unavailable Wednesday, Alma AQUINON Unavailable [phone] Jayne Del Valle RN Unavailable [phone] Merry Paz LPN Unavailable Unavailable Encounter [...] care, and heating? Not very hard 10/10/2023 [facility] of Occupat ional [...] in a fdc (including now)? No 09/14/2022 Housing Stability Vital Sign Answer Sohail e Recorded In the last 12 months, was t here a time when you were not able to pay the mortgage or rent on time? Yes 10/10/2023 In the past 12 months, how m any times have you moved where you were living? 0 10/10/2023 At any time in the past 12 m [facility], were you homeless or living in a fdc (including now)? No 10/10/2023 Sex and Gender [...] EDT Office Visit [facility] 112 [facility] 110 [place] [address] Marina Proctor PA 112 [facility] 110 [place] [address] documented as of this encounter Procedures Procedure [...] similar to 05/04/2017. Mild right knee osteoarthritis. Triage Registered Nurse: PSCB Transcribe Date/Time: Jan 04 2024 12:48P Dictated by : CHELSEA REEVES MD This examination was interpreted and the report reviewed and electronically signed by: CHELSEA REEVES MD on Jan 04 2024 1:21PM EST [id number]^AGFA_[id number]^SI^ACN Procedure Note Radiology, Radiologist, - 01/04/2024 * [...] similar to 05/04/2017. Mild right knee osteoarthritis. Triage Registered Nurse: PSCB Transcribe Date/Time: Jan 04 2024 12:48P Dictated by : CHELSEA REEVES MD This examination was interpreted and the report reviewed and electronically signed by: CHELSEA REEVES MD on Jan 04 2024 1:21PM EST [id number]^AGFA_[id number]^SI^ACN Generic External Data Provider [facility] Final Result documented in this encounter Visit Diagnoses Not on filedocumented in this encounter Care Teams Terrazzo Layer Relationship Specialty Start Date End Date Malcolm Cid MD [address] [facility] 110 [place] [address] PCP - General Family Medicine 07/29/22 Malcolm Cid MD [address] [facility] 110 [place] [address] PCP - [facility] 05/30/22Wednesday, BREE Marquez 112 [place] [address] Licensed Practical Nurse Family Medicine 06/04/23 Jayne Del Valle, DELMIS Licensed Practical Nurse Family Medicine 04/07/2404/30 Merry Paz LPN 05/19/24 documented as of this encounter
--- OUTSIDE RECORDS SUMMARY | 2024-08-04 12:09 | XMS_ITS | Encounter Summary ---
Author Organization [facility] Address [address] [place] [address] Care Team Providers Care Product Managent Intern Name Role Phone Malcolm Cid MD Primary Care Provider [phone] Malcolm Cid MD Unavailable Wednesday, Alma MARINE EQUIPMENT DESIGN ENGINEER Unavailable [phone] Jayne Del Valle RN Unavailable Merry Paz MARINE EQUIPMENT DESIGN ENGINEER Unavailable Unavailable Encounter Details Date Type Department Care Team (Late st Contact Info) Description 08/10/2022 Orders Only [facility] [address] [facility] 110 [place] [address] Stephen Shields MD [address] [facility] 110 [place] [address] Social History Tobacco Use Types Packs/Day Years [...] [address] [facility] 110 [place] [address] Marina Proctor, PA [address] [facility] 110 [place] [address] documented as of this encounter Procedures Procedure [...] filedocumented in this encounter Care Teams Product Managent Intern Relationship Specialty Start Date End Date Malcolm Cid MD [address] [facility] [address] [place] [address] PCP - General Family Medicine 07/29/22 Malcolm Cid MD [address] [facility] [address] [place] [address] PCP - [facility] 05/30/22Wednesday, BREE Marquez [address] [place] [address] Licensed Practical Nurse Family Medicine 06/04/23 Jayne Del Valle, RN Licensed Practical Nurse Family Medicine 04/07/2404/30 Merry Paz LPN 05/19/24 documented as of this encounter
--- OUTSIDE RECORDS SUMMARY | 2024-08-04 12:09 | XMS_ITS | Encounter Summary ---
Author Organization [facility] Address [address] [place] [address] Care Team Providers Care Manager Salt Name Role Phone Malcolm Cid MD Primary Care Provider [phone] Source Comments In the event this information is protected by the Federal Confidentiality of Alcohol and Drug AbusePatient Records regulations: The Federal rules restrict any use of the information to criminally investigate or prosecute any alcohol or drug abuse patient.[facility] Encounter Details Date Type Department Care Team (Late st Contact Info) Description 07/29/2017 Patient Msg Neurology [address] [place], [place] [id number] Provider, [facility] Follow up - Dr Castro [...] 10/03/2024 8:00 AM EDT Office Visit Rheumatology [address] [place] [address] [place] [address] [place] [address] Return in about 9 months (around 10/03/2024). documented as of this encounter Visit Diagnoses Not on filedocumented in this encounter Care Teams Manager Salt Relationship Specialty Start Date End Date Malcolm Cid MD PCP - General Family Medicine 01/07/15 documented as of this encounter
--- OUTSIDE RECORDS SUMMARY | 2024-08-04 12:09 | XMS_ITS | Encounter Summary ---
Author Organization [facility] Address [address] [place] [address] Care Team Providers Care Needle Punch Machine Operator Name Role Phone Malcolm Cid MD Primary Care Provider [phone] Malcolm Cid MD Unavailable Wednesday, Alma AQUINON Unavailable [phone] Jayne Del Valle RN Unavailable [phone] Merry Paz PROPERTY VALUER Unavailable Unavailable Encounter Details Date Type Department Care Team (Late st Contact Info) Description 12/16/2022 Abstract [facility] 112 [facility] 110 [place] [address] Marina Proctor, PA 112 [facility] 110 [place], [place] [id number] Social History Tobacco Use Types Packs/Day Years [...] Visit [facility] [address] [facility] 110 [place] [address] Marina Proctor PA [address] [facility] 110 [place] [address] documented as of this encounter Visit Diagnoses Not on filedocumented in this encounter Care Teams Needle Punch Machine Operator Relationship Specialty Start Date End Date Malcolm Cid MD [address] [facility] 110 [place] [address] PCP - General Family Medicine 07/29/22 Malcolm Cid MD [address] [facility] [address] [place] [address] PCP - [facility] 05/30/22Wednesday, BREE Marquez [address] [place] [address] Licensed Practical Nurse Family Medicine 06/04/23 Jayne Del Valle, RN Licensed Practical Nurse Family Medicine 04/07/2404/30 Merry Paz LPN 05/19/24 documented as of this encounter
--- OUTSIDE RECORDS SUMMARY | 2024-08-04 12:09 | XMS_ITS | Encounter Summary ---
Author Organization [facility] Address [address] [place] [address] Care Team Providers Care Vehicle Trimmer Name Role Phone Malcolm Cid MD Primary Care Provider [phone] Malcolm Cid MD Unavailable Wednesday, Alma AQUINON Unavailable Jayne Del Valle RN Unavailable [phone] Merry Paz FEED MILLER Unavailable Unavailable Encounter Details Date Type Department Care Team (Late st Contact Info) Description 02/16/2023 Abstract [facility] [address] [facility] 110 [place] [address] Malcolm Cid MD 112 [facility] 110 [place], [place] [address] Social History Tobacco Use Types Packs/Day Years [...] 08/07/2024 11:00 AM EDT Office Visit [facility] [address] [facility] 110 [place] [address] Marina Proctor PA [address] [facility] 110 [place] [address] documented as of this encounter Visit Diagnoses Not on filedocumented in this encounter Care Teams Vehicle Trimmer Relationship Specialty Start Date End Date Malcolm Cid MD [address] [facility] 110 [place] [address] PCP - General Family Medicine 07/29/22 Malcolm Cid MD [address] [facility] [address] [place] [address] PCP - [facility] 05/30/22Wednesday, BREE Marquez [address] [place] [address] Licensed Practical Nurse Family Medicine 06/04/23 Jayne Del Valle, DELMIS Licensed Practical Nurse Family Medicine 04/07/2404/30 Merry Paz LPN 05/19/24 documented as of this encounter
--- OUTSIDE RECORDS SUMMARY | 2024-08-04 12:09 | XMS_ITS | Encounter Summary ---
Author Organization [facility] Address [address] [place] [address] Care Team Providers Care Automotive Engineering Teacher Name Role Phone Malcolm Cid MD Primary Care Provider [phone] Malcolm Cid MD Unavailable Wednesday, Alma AQUINON Unavailable [phone] Jayne Del Valle RN Unavailable [phone] Merry Paz PATHOLOGICAL TECHNICIAN Unavailable Unavailable Encounter Details Date Type Department Care Team (Late st Contact Info) Description 02/15/2023 Orders Only [facility] [address] [facility] 110 [place] [address] A, Unknown Practice [address] [place] [address] Social History Tobacco Use Types Packs/Day Years [...] 08/07/2024 11:00 AM EDT Office Visit [facility] 112 [facility] 110 [place] [address] Marina Proctor PA [address] [facility] 110 [place] [address] documented as of this encounter Procedures Procedure [...] on filedocumented in this encounter Care Teams Automotive Engineering Teacher Relationship Specialty Start Date End Date Malcolm Cid MD [address] [facility] [address] [place] [address] PCP - General Family Medicine 07/29/22 Malcolm Cid MD [address] [facility] [address] [place] [address] PCP - [facility] 05/30/22Wednesday, BREE Marquez [address] [place] [address] Licensed Practical Nurse Family Medicine 06/04/23 Jayne Del Valle, RN Licensed Practical Nurse Family Medicine 04/07/2404/30 Merry Paz LPN 05/19/24 documented as of this encounter
--- OUTSIDE RECORDS SUMMARY | 2024-08-04 12:09 | XMS_ITS | Encounter Summary ---
Author Organization [facility] Address [address] [place] [address] Care Team Providers Care Transitional Studies Instructor Name Role Phone Malcolm Cid MD Primary Care Provider [phone] Malcolm Cid MD Unavailable Wednesday, Alma AQUINON Unavailable [phone] Jayne Del Valle RN Unavailable [phone] Merry Paz INTERMODAL CUSTOMER SERVICE Unavailable Unavailable Encounter Details Date Type Department Care Team (Late st Contact Info) Description 01/11/2023 Abstract [facility] [address] [facility] 110 [place] [address] Malcolm Cid MD 112 [facility] 110 [place], [place] [address] Social History Tobacco Use Types Packs/Day Years [...] care, and heating? Not very hard 09/14/2022 [facility] of Occupat ional Health - [...] FM [address] [facility] 110 [place] [address] Marina Proctor PA 112 [facility] 110 [place] [address] documented as of this encounter Visit Diagnoses Not on filedocumented in this encounter Care Teams Transitional Studies Instructor Relationship Specialty Start Date End Date Malcolm Cid MD [address] [facility] 110 [place] [address] PCP - General Family Medicine 07/29/22 Malcolm Cid MD [address] [facility] 110 [place] [address] PCP - [facility] 05/30/22Wednesday, BREE Marquez [address] [facility] 110 [place] [address] Licensed Practical Nurse Family Medicine 06/04/23 Jayne Del Valle, RN Licensed Practical Nurse Family Medicine 04/07/2404/30 Merry Paz LPN 05/19/24 documented as of this encounter
--- OUTSIDE RECORDS SUMMARY | 2024-08-04 12:09 | XMS_ITS | Encounter Summary ---
Author Organization [facility] Address [address] [place] [address] Care Team Providers Care Motorcycle Tester Name Role Phone Malcolm Cid MD Primary Care Provider [phone] Malcolm Cid MD Unavailable Wednesday, Alma AQUINON Unavailable [phone] Jayne Del Valle RN Unavailable [phone] Merry Paz MILL ATTENDANT Unavailable Unavailable Encounter Details Date Type Department Care Team (Late st Contact Info) Description 02/15/2023 Abstract [facility] [address] [facility] 110 [place] [address] Malcolm Cid MD 112 [facility] 110 [place], [place] [address] Social History Tobacco Use Types Packs/Day Years [...] care, and heating? Not very hard 09/14/2022 [facility] of Occupat ional Health - Occupational [...] 08/07/2024 11:00 AM EDT Office Visit [facility] [address] [facility] 110 [place] [address] Marina Proctor PA [address] [facility] 110 [place] [address] documented as of this encounter Visit Diagnoses Not on filedocumented in this encounter Care Teams Motorcycle Tester Relationship Specialty Start Date End Date Malcolm Cid MD [address] [facility] 110 [place] [address] PCP - General Family Medicine 07/29/22 Malcolm Cid MD [address] [facility] [address] [place] [address] PCP - [facility] 05/30/22Wednesday, BREE Marquez [address] [place] [address] Licensed Practical Nurse Family Medicine 06/04/23 Jayne Del Valle, DELMIS Licensed Practical Nurse Family Medicine 04/07/2404/30 Merry Paz LPN 05/19/24 documented as of this encounter
--- OUTSIDE RECORDS SUMMARY | 2024-08-04 12:09 | XMS_ITS | Encounter Summary ---
Author Organization [facility] Address [address] [place] [address] Care Team Providers Care Residential Interior Designer Name Role Phone Malcolm Cid MD Primary Care Provider [phone] Malcolm Cid MD Unavailable Merry Paz LPN Unavailable Unavailable Reason for Visit * Reason Onset Date Comments Med Refill 07/26/2024 Encounter Details Date Type Department Care Team (Late st Contact Info) Description 07/26/2024 Refill [facility] [address] [place] [address] Nikky Jacobson Rheumatoid arthritis involving multiple sites with positive rheumatoid factor ([facility]) Social History Tobacco Use Types [...] Recorded Patient Health Questionnaire-2 Score 0 05/18/2024 [facility] of Occupat ional Health - Occupational Stress [...] Office Visit [facility] [address] [facility] 110 [place] [address] Marina Proctor PA [address] [facility] 110 [place] [address] documented as of this encounter Visit Diagnoses Diagnosis Rheumatoid arthritis involving multiple sites with positive rheumatoid factor ([facility]) documented in this encounter Care Teams Residential Interior Designer Relationship Specialty Start Date End Date Malcolm Cid MD [address] [facility] 110 [place] [address] PCP - General Family Medicine 07/29/22 Malcolm Cid MD [address] [facility] 110 [place] [address] PCP - [facility] 05/30/22 Merry Paz LPN 05/19/24 documented as of this encounter
--- OUTSIDE RECORDS SUMMARY | 2024-08-04 12:09 | XMS_ITS | Encounter Summary ---
Author Organization [facility] Address [address] [place] [address] Care Team Providers Care Consulting Analyst Name Role Phone Malcolm Sears MD Primary Care Provider [phone] Malcolm Sears MD Unavailable Wednesday, Alma AQUINON Unavailable [phone] Jayne Del Valle RN Unavailable Merry Paz MASK DESIGNER Unavailable Unavailable Reason for Visit * Reason Onset Date Comments Med Refill 02/04/2024 Encounter Details Date Type Department Care Team (Late st Contact Info) Description 02/04/2024 Refill [facility] [address] [facility] 110 [place] [address] Marina Proctor, PA [address] [facility] 110 [place] [address] Rheumatoid arthritis involving multiple sites with positive rheumatoid factor ([facility]) Social History Tobacco Use Types Packs/Day [...] do you attend [facility] or sabianist services? More than 4 times per year 10/10/2023 Do you belong to any clubs o r organizations such as bahai groups, unions, fraternal or athletic groups, or [...] care, and heating? Not very hard 10/10/2023 [facility] of Occupat ional Health - Occupational Stress [...] Visit [facility] [address] [facility] 110 [place] [address] Marina Proctor PA [address] [facility] [address] [place] [address] documented as of this encounter Visit Diagnoses Diagnosis Rheumatoid arthritis involving multiple sites with positive rheumatoid factor ([facility]) documented in this encounter Care Teams Consulting Analyst Relationship Specialty Start Date End Date Malcolm Sears MD [address] [facility] [address] [place] [address] PCP - General Family Medicine 07/29/22 Malcolm Sears MD [address] [facility] [address] [place] [address] PCP - [facility] 05/30/22Wednesday, BREE Marquez [address] [place] [address] Licensed Practical Nurse Family Medicine 06/04/23 Jayne Del Valle, RN Licensed Practical Nurse Family Medicine 04/07/2404/30 Merry Paz LPN 05/19/24 documented as of this encounter
--- OUTSIDE RECORDS SUMMARY | 2024-08-04 12:09 | XMS_ITS | Encounter Summary ---
Author Organization [facility] Address [address] [place] [address] Care Team Providers Care Cigarette Examiner Name Role Phone Malcolm Cid MD Primary Care Provider [phone] Malcolm Cid MD Unavailable Wednesday, Alma AQUINON Unavailable [phone] Jayne Del Valle RN Unavailable Merry Paz LINE REPAIRER Unavailable Unavailable Encounter Details Date Type Department Care Team (Late st Contact Info) Description 01/11/2023 Abstract [facility] [address] [facility] 110 [place] [address] Malcolm Cid MD 112 [facility] 110 [place], [place] [address] Social History Tobacco Use Types Packs/Day Years [...] and heating? Not very hard 09/14/2022 [facility] of Occupat ional Health - [...] EDT Office Visit [facility] 112 [facility] 110 [place] [address] Marina Proctor PA 112 [facility] 110 [place] [address] documented as of this encounter Visit Diagnoses Not on filedocumented in this encounter Care Teams Cigarette Examiner Relationship Specialty Start Date End Date Malcolm Cid MD [address] [facility] 110 [place] [address] PCP - General Family Medicine 07/29/22 Malcolm Cid MD [address] [facility] 110 [place] [address] PCP - [facility] 05/30/22Wednesday, BREE Marquez [address] [facility] 110 [place] [address] Licensed Practical Nurse Family Medicine 06/04/23 Jayne Del Valle, RN Licensed Practical Nurse Family Medicine 04/07/2404/30 Merry Paz LPN 05/19/24 documented as of this encounter
--- OUTSIDE RECORDS SUMMARY | 2024-08-04 12:09 | XMS_ITS | Encounter Summary ---
Author Organization [facility] Address [address] [place] [address] Care Team Providers Care Chip Frier Name Role Phone Malcolm Cid MD Primary Care Provider [phone] Malcolm Cid MD Unavailable Wednesday, Alma AQUINON Unavailable [phone] Jayne Del Valle RN Unavailable [phone] Merry Paz LPN Unavailable Unavailable Encounter [...] How often do you attend chur or zoroastrian services? More than 4 times per year [...] and heating? Not very hard 10/10/2023 [facility] of Occupat ional Health [...] any time in the past 12 m [facility], were you homeless or living [...] EDT Office Visit [facility] JASMIN ALLRED 112 [facility] 110 [place] [address] Marina Proctor PA 112 [facility] 110 [place] [address] documented as of this encounter Procedures Procedure [...] progressed from 05/04/2017 Mild right foot osteoarthritis. Meter Record Clerk: PSCB Transcribe Date/Time: Jan 04 2024 10:13A Dictated by : UMA ROGERS MD This examination was interpreted and the report reviewed and electronically signed by: CHELSEA REEVES MD on Jan 04 2024 3:12PM EST [id number]^AGFA_[id number]^SI^ACN Procedure Note Radiology, Radiologist, - 01/04/2024 * [...] progressed from 05/04/2017 Mild right foot osteoarthritis. Meter Record Clerk: ADELA Transcribe Date/Time: Jan 04 2024 10:13A Dictated by : UMA ROGERS MD This examination was interpreted and the report reviewed and electronically signed by: CHELSEA REEVES MD on Jan 04 2024 3:12PM EST [id number]^AGFA_[id number]^SI^ACN us Generic External Data Provider [facility] Final Result documented in this encounter Visit Diagnoses Not on filedocumented in this encounter Care Teams Chip Frier Relationship Specialty Start Date End Date Malcolm Cid MD [address] [facility] 110 [place] [address] PCP - General Family Medicine 07/29/22 Malcolm Cid MD [address] [facility] 110 [place] [address] PCP - [facility] 05/30/22Wednesday, BREE Marquez [address] [facility] [address] [place] [address] Licensed Practical Nurse Family Medicine 06/04/23 Jayne Del Valle, DELMIS Licensed Practical Nurse Family Medicine 04/07/2404/30 Merry Paz LPN 05/19/24 documented as of this encounter
--- OUTSIDE RECORDS SUMMARY | 2024-08-04 12:09 | XMS_ITS | Encounter Summary ---
Author Organization [facility] Address [address] [place] [address] Care Team Providers Care Medical Insurance Verifier Name Role Phone Malcolm Cid MD Primary Care Provider [phone] Malcolm Cid MD Unavailable Wednesday, Alma AQUINON Unavailable [phone] Jayne Del Valle RN Unavailable [phone] Merry Paz NUISANCE ANIMAL DAMAGE CONTROL AGENT Unavailable Unavailable Encounter Details Date Type Department Care Team (Late st Contact Info) Description 02/16/2023 Abstract [facility] [address] [facility] 110 [place] [address] Malcolm Cid MD 112 [facility] 110 [place], [place] [address] Social History Tobacco Use Types Packs/Day Years [...] 08/07/2024 11:00 AM EDT Office Visit [facility] [address] [facility] 110 [place] [address] Marina Proctor PA [address] [facility] 110 [place] [address] documented as of this encounter Visit Diagnoses Not on filedocumented in this encounter Care Teams Medical Insurance Verifier Relationship Specialty Start Date End Date Malcolm Cid MD [address] [facility] 110 [place] [address] PCP - General Family Medicine 07/29/22 Malcolm Cid MD [address] [place] [address] PCP - [facility] 05/30/22Wednesday, BREE Marquez [address] [place] [address] Licensed Practical Nurse Family Medicine 06/04/23 Jayne Del Valle, DELMIS Licensed Practical Nurse Family Medicine 04/07/2404/30 Merry Paz LPN 05/19/24 documented as of this encounter
--- OUTSIDE RECORDS SUMMARY | 2024-08-04 12:09 | XMS_ITS | Encounter Summary ---
Author Organization [facility] Address [address] [place] [address] Care Team Providers Care Natural Resources Manager Name Role Phone Malcolm Cid MD Primary Care Provider [phone] Malcolm Cid MD Unavailable Wednesday, Alma AQUINON Unavailable [phone] Jayne Del Valle RN Unavailable [phone] Merry Paz SPINDLE TESTER Unavailable Unavailable Encounter Details Date Type Department Care Team (Late st Contact Info) Description 02/09/2023 Abstract [facility] [address] [facility] 110 [place] [id number] Malcolm Cid MD 112 [facility] 110 [place], [place] [id number] Social History Tobacco Use Types Packs/Day Years [...] Office Visit [facility] 112 [facility] 110 [place] [address] Marina Proctor PA [address] [facility] 110 [place] [address] documented as of this encounter Visit Diagnoses Not on filedocumented in this encounter Care Teams Natural Resources Manager Relationship Specialty Start Date End Date Malcolm Cid MD [address] [facility] 110 [place] [address] PCP - General Family Medicine 07/29/22 Malcolm Cid MD [address] [facility] 110 [place] [address] PCP - [facility] 05/30/22Wednesday, BREE Marquez [address] [facility] 110 [place] [address] Licensed Practical Nurse Family Medicine 06/04/23 Jayne Del Valle, RN Licensed Practical Nurse Family Medicine 04/07/2404/30 Merry Paz LPN 05/19/24 documented as of this encounter
--- OUTSIDE RECORDS SUMMARY | 2024-08-04 12:09 | XMS_ITS | Encounter Summary ---
Author Organization [facility] Address [address] [place] [address] Care Team Providers Care Proposal Consultant Name Role Phone Malcolm Cid MD Primary Care Provider [phone] Malcolm Cid MD Unavailable Merry Paz LPN Unavailable Unavailable Reason for Visit * Reason Onset Date Comments Med Refill 07/26/2024 Encounter Details Date Type Department Care Team (Late st Contact Info) Description 07/26/2024 Refill [facility] [address] [facility] 110 [place] [address] Marina Proctor, PA 112 [facility] 110 [place], [place] [id number] Rheumatoid arthritis involving multiple sites with positive [...] Recorded Patient Health Questionnaire-2 Score 0 05/18/2024 [facility] of Occupat ional Health - Occupational Stress [...] any time in the past 12 m [facility], were you homeless or living [...] Visit [facility] [address] [facility] 110 [place] [address] Marina Proctor PA [address] [facility] 110 [place] [address] documented as of this encounter Visit Diagnoses Diagnosis Rheumatoid arthritis involving multiple sites with positive rheumatoid factor (CMS/[facility]) documented in this encounter Care Teams Proposal Consultant Relationship Specialty Start Date End Date Malcolm Cid MD [address] [facility] 110 [place] [address] PCP - General Family Medicine 07/29/22 Malcolm Cid MD [address] [facility] 110 [place] [address] PCP - [facility] 05/30/22 Merry Paz LPN 05/19/24 documented as of this encounter
--- OUTSIDE RECORDS SUMMARY | 2024-08-04 12:10 | XMS_ITS | Clinical Summary ---
Author Organization [facility] Address [address] [place] [address] Care Team Providers Care Hop Sorter Name Role Phone Malcolm Cid MD Primary Care Provider [phone] Malcolm Cid MD Unavailable Merry Paz LPN Unavailable Unavailable Allergies No known active allergies Medications carvedilol (Coreg) 6.25 MG tabletIndicatio ns:Essential (primary) hypertension (CMS/HCC) TAKE 1 TABLET BY MOUTH TWICE A DAY WITH FOOD 180 tablet 3 023 Active allopurinol (Zyloprim) 300 MG tablet Take 600 mg by mouth in the morning. 022 Active colchicine 0.6 MG tabletIndicatio ns: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) Take 1 tablet (0.6 mg) by mouth every other day 100 tablet 1 024 Active allopurinol (Zyloprim) 100 MG tablet Take 200 mg by mouth Daily Take with Allopurinol 3oomg (2 tabs)=700mg total 024 Active cloNIDine (Catapres) 0.1 MG tabletIndicatio ns:Essential hypertension (CMS/HCC) TAKE 1 TABLET BY MOUTH TWICE A DAY 180 tablet 3 024 Active gabapentin (Neurontin) 300 MG capsuleIndicati ons:Other chronic pain Take 1 capsule (300 mg) by mouth in the morning and 1 capsule (300 mg) before bedtime. 100 capsule 3 025 Active traMADol (Ultram) 50 MG tabletIndicatio ns: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) Take 1 tablet (50 mg) by mouth every 12 (twelve) hours if needed for moderate pain 60 tablet 025 2024 Active amLODIPine (Norvasc) 10 MG tabletIndicatio ns:Essential hypertension (CMS/HCC) TAKE 1 TABLET BY MOUTH EVERY DAY FOR 100 DAYS 100 tablet 3 025 Active oxyCODONE-aceta minophen (Percocet) 5-325 MG tablet Take 1 tablet by mouth every 4 (four) hours if needed for severe pain or moderate pain Active predniSONE (Deltasone) 10 MG tablet Take by mouth Daily 50mg daily x3 days, 40mg daily x3 days, 30mg daily x3 days, 20mg daily x3 days, 10mg daily x3 days, 5mg daily x4 days. 025 2024 Active amLODIPine (Norvasc) 10 MG tabletIndicatio ns:Essential hypertension (CMS/HCC) TAKE 1 TABLET BY MOUTH EVERY DAY FOR 100 DAYS 100 tablet 3 024 2024 Discontinued methylPREDNISol one (Medrol Dospak) 4 MG tablets TAKE 6 TABLETS ON DAY 1 DIRECTED ON PACKAGE AND DECREASE BY 1 TAB EACH DAY FOR A TOTAL OF 6 DAYS 025 2024 Discontinued(R eorder) traMADol (Ultram) 50 MG tabletIndicatio ns: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) Take 1 tablet (50 mg) by mouth every 12 (twelve) hours if needed for moderate pain 60 tablet 025 2024 Discontinued(R eorder) HYDROcodone-nitza taminophen (Iraan) 5-325 MG tabletIndicatio ns: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) Take 1 tablet by mouth every 12 (twelve) hours if needed for severe pain for up to 5 days 10 tablet 025 2024 Discontinued(R eorder) HYDROcodone-nitza taminophen (Iraan) 5-325 MG tabletIndicatio ns: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) Take 1 tablet by mouth Daily as needed for severe pain for up to 5 days 5 tablet 025 2024 methylPREDNISol one (Medrol Dospak) 4 MG tabletsIndicati ons:Rheumatoid arthritis involving multiple sites with positive rheumatoid factor ([facility]) Follow schedule on package instructions 21 tablet 025 2024 Discontinued(T herapy completed) Active Problems Problem Noted Date Diagnosed Date [...] Encounters Date Type Department Care Team Description 08/01/2024 Patient Outreach [facility] [address] [place] [address] Jayne Del Valle RN 08/01/2024 Refill [facility] [address] [facility] 110 [place] [address] Malcolm Cid MD Essential hypertension (CMS/HCC) 07/30/2024 Clinisync Result Encounter [facility] External Department Unsolicited Provider, Generic External Data 07/29/2024 Clinisync Result Encounter [facility] External Department Unsolicited Provider, Generic External Data 07/26/2024 Refill [facility] [address] [place] [address] Nikky Jacobson 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) 07/26/2024 Refill [facility] [address] [facility] [address] [place] [address] Marina Proctor PA 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) 07/20/2024 Refill [facility] [address] [facility] [address] [place] [address] Marina Proctor PA 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) 07/11/2024 Refill [facility] [address] [facility] [address] [place] [address] Marina Proctor PA 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) 07/07/2024 Refill [facility] [address] [facility] [address] [place] [address] Marina Proctor PA 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) 07/03/2024 Refill [facility] [address] [facility] [address] [place] [address] Marina Proctor PA Rheumatoid arthritis involving multiple sites with positive rheumatoid factor ([facility]/HCC) 06/28/2024 Patient Outreach [facility] [address] [place] [address] [place], [facility] 06/28/2024 Refill [facility] [address] [facility] [address] [place] [address] Malcolm Cid MD Rheumatoid arthritis involving multiple sites with positive rheumatoid factor ([facility]) 06/27/2024 Telephone [facility] [address] [place] [address] [facility] 06/27/2024 Patient Outreach [facility] [address] [place] [address] [employer] 06/26/2024 Abstract [facility] [address] [place] [address] [place] Mer[place], [facility] 06/26/2024 Refill [facility] [address] [place] [address] Marina Proctor PA Rheumatoid arthritis involving multiple sites with positive rheumatoid factor ([facility]) 06/26/2024 Telephone [facility] [address] [place] [address] [place] [address] Malcolm Cid MD Med Refill 06/26/2024 Refill [facility] [address] [facility] [address] [place] [address] Marina Proctor PA Rheumatoid arthritis involving multiple sites with positive rheumatoid factor ([facility]/HCC) 06/20/2024 Patient Outreach [facility] [address] [place] [address] Paz[employer], PACKING MACHINE INSPECTOR 06/19/2024 Refill [facility] [address] [facility] [address] [place] [address] Marina Proctor PA 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) 06/12/2024 Refill [facility] [address] [facility] [address] [place] [address] Marina Proctor PA 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) 06/05/2024 Refill [facility] [address] [facility] [address] [place] [address] Marina Proctor PA 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) 06/05/2024 Refill [facility] [address] [facility] [address] [place] [address] Malcolm Cid MD Other chronic pain 05/30/2024 Refill [facility] [address] [facility] 110 [place] [address] Malcolm Cid MD 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) 05/29/2024 Refill [facility] [address] [facility] 110 [place] [address] Marina Proctor PA 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) 05/23/2024 Refill [facility] [address] [place] [address] [place] [address] Marina Proctor PA 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) 05/18/2024 9:00 AM EDT Office Visit [facility] [address] [place] [address] [place] [address] Marina Proctor PA 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); 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); Anemia, unspecified type; Toe joint pain, left 05/18/2024 Abstract [facility] [address] [facility] [address] [place] [address] Malcolm Cid MD 05/18/2024 Abstract [facility] [address] [place] [address] [place] [address] Malcolm Cid MD 05/18/2024 Clinisync Result Encounter [facility] External Department Unsolicited Marina Proctor PA 05/18/2024 Bamboo flowsheet [facility] [address] [facility] [address] [place] [address] Marina Proctor PA 05/18/2024 Travel 05/16/2024 Refill [facility] [address] [facility] [address] [place] [address] Marina Proctor PA Abscess of right index finger 05/16/2024 Refill [facility] [address] [place] [address] Malcolm Cid MD Rheumatoid arthritis involving multiple sites with positive rheumatoid factor ([facility]) 05/10/2024 Refill [facility] [address] [facility] [address] [place] [address] Marina Proctor PA Abscess of right index finger from Last 3 Months Immunizations Immunization Administration [...] Recorded Patient Health Questionnaire-2 Score 0 05/18/2024 [facility] of Occupat ional Health - Occupational [...] a nursing home (including now)? No 09/14/2022 Housing Stability [...] time in the past 12 m [facility], were you homeless or living in a nursing home (including now)? No 10/10/2023 Sex and [...] 08/07/2024 11:00 AM EDT Office Visit [facility] 112 [facility] 110 [place] [address] Marina Proctor PA 112 [facility] 110 [place] [address] Health Maintenance Due Date Last Done Comments Influenza Vaccine (Season Ended) 2024 Procedures Procedure Name Priority Date/Time Associated Diagnosis Comments E COLI SHIGA TOXIN EIA Routine 07/30/2024 3:45 PM EDT SALMONELLA/SHIGELLA SCREEN Routine 07/30/2024 3:45 PM EDT BLOOD CULTURE 2 Routine 07/29/2024 10:05 PM EDT BLOOD CULTURE 1 Routine 07/29/2024 10:00 PM EDT ALL SED RATE Routine 05/18/2024 9:47 AM EDT ALL C REACTIVE PROTEIN Routine 05/18/2024 9:47 AM EDT ALL URIC ACID Routine 05/18/2024 9:47 AM EDT ALL CBC WITH AUTO DIFF Routine 05/18/2024 9:47 AM EDT from Last 3 Months Results * SALMONELLA/SHIGELLA SCREEN (07/30/2024 3:45 PM EDT) SALMONELLA/SH IGELLA SCREEN Salmonella/Natty gella Screen [facility] SALMONELLA/SH IGELLA SCREEN Specimen has been received and testing has been initiated. [facility] SALMONELLA/SH IGELLA SCREEN [facility] SALMONELLA/SH IGELLA SCREEN No Salmonella or Shigella recovered. [facility] 07/30/2024 3:45 PM EDT 07/30/2024 3:48 PM EDT Narrative KETTY - 08/03/2024 1:10 PM EDT Generic External Data Provider LAB BLOOD ORDERAB LES Final Result [facility] * E COLI SHIGA TOXIN EIA (07/30/2024 3:45 PM EDT) E COLI SHIGA TOXIN EIA E coli Shiga Toxin EIA WILL FOLLOW [facility] E COLI SHIGA TOXIN EIA Negative [facility] E COLI SHIGA TOXIN EIA Performed at: [facility] E COLI SHIGA TOXIN EIA [address] [place], [place] [id number] [facility] E COLI SHIGA TOXIN EIA Core Finisher: Surinder Torres PhD, Phone: [phone] [facility] 07/30/2024 3:45 PM EDT 07/30/2024 3:48 PM EDT Narrative [facility] - 08/03/2024 1:10 PM EDT us Generic External Data Provider LAB BLOOD ORDERAB LES Final Result Performing Organization Address [facility] Co de Phone Number [facility] TB * (ABNORMAL) ALL URIC ACID (05/18/2024 9:47 AM EDT) Pathologist [facility] URIC ACID 9.2(H) 3.5 - 7.2 mg/dL TB 05/18/2024 9:47 AM EDT 05/18/2024 9:50 AM EDT Narrative [facility] - 05/18/2024 10:51 AM EDT us Marina MARINELLI CL[facility] Final Result Performing Organization Address [facility] de Phone Number CL[facility]YNC TB * (ABNORMAL) ALL SED RATE (05/18/2024 9:47 AM EDT) Pathologist [facility] SED RATE 31(H) <=15 mm/hr [facility] 05/18/2024 9:47 AM EDT 05/18/2024 9:50 AM EDT Narrative CLINISYNC - 05/18/2024 11:06 AM EDT us Marina MARINELLI CL[facility] Final Result Performing Organization Address [facility] de Phone Number [facility] TB * (ABNORMAL) ALL CBC WITH AUTO DIFF (05/18/2024 9:47 AM EDT) Pathologist [facility] TB WBC 8.4 4.0 - 11.0 10 [...] CLINIS[facility] - 05/18/2024 10:12 AM EDT Marina HDEZ Final Result [facility] * ALL C REACTIVE PROTEIN (05/18/2024 9:47 AM EDT) C REACTIVE PROTEIN <0.50 <=0.50 mg/dL TBH 05/18/2024 9:47 AM EDT 05/18/2024 9:50 AM EDT Narrative CLINISYNC - 05/18/2024 10:51 AM EDT us Marina HDEZ Final Result [facility]H from Last 3 Months Insurance [employer] Care Teams Hop Sorter Relationship Specialty Start Date End Date Malcolm Cid MD [address] [facility] 110 [place] [address] PCP - General Family Medicine 07/29/22 Malcolm Cid MD [address] [facility] 110 [place] [address] PCP - [facility] NIGHT COORDINATOR 05/30/22 Merry Paz LPN 05/19/24
--- OUTSIDE RECORDS SUMMARY | 2024-08-04 12:10 | XMS_ITS | Encounter Summary ---
Author Organization [facility] Address [address] [place] [address] Care Team Providers Care Talent Acquisition Partner Name Role Phone Malcolm Cid MD Primary Care Provider [phone] Malcolm Cid MD Unavailable Jayne Del Valle RN Unavailable [phone] Merry Paz LPN Unavailable Unavailable Encounter Details Date Type Department Care Team (Late st Contact Info) Description 05/18/2024 Abstract [facility] 112 [facility] 110 [place] [address] Malcolm Cid MD 112 [facility] 110 [place] [address] Social History Tobacco Use Types [...] Patient Health Questionnaire-2 Score 0 05/18/2024 [facility] [place] of Occupat ional Health - Occupational Stress [...] the past [address] [facility], were you homeless or living in a [...] Visit [facility] [address] [facility] 110 [place] [address] Marina Proctor PA [address] [place] [address] [place] [address] documented as of this encounter Visit Diagnoses Not on filedocumented in this encounter Care Teams Talent Acquisition Partner Relationship Specialty Start Date End Date Malcolm Cid MD [address] [facility] 110 [place] [address] PCP - General Family Medicine 07/29/22 Malcolm Cid MD [address] [facility] [address] [place] [address] PCP - [facility] 05/30/22 Jayne Del Valle, RN Licensed Practical Nurse Family Medicine 04/07/2404/30 Merry Paz LPN 05/19/24 documented as of this encounter
--- OUTSIDE RECORDS SUMMARY | 2024-08-04 12:10 | XMS_ITS | Encounter Summary ---
Author Organization [facility] Address [address] [place] [address] Care Team Providers Care Cylinder Inspector Name Role Phone Malcolm Cid MD Primary Care Provider [phone] Malcolm Cid MD Unavailable Jayne Del Valle RN Unavailable [phone] Merry Paz LPN Unavailable Unavailable Encounter Details Date Type Department Care Team (Late st Contact Info) Description 05/18/2024 Abstract [facility] 112 [facility] 110 [place] [address] Malcolm Cid MD 112 [facility] 110 [place] [address] Social History Tobacco Use Types [...] How often do you attend chur or scientologist services? More than 4 times [...] Recorded Patient Health Questionnaire-2 Score 0 05/18/2024 [facility] [place] of Occupat ional Health - Occupational Stress [...] Visit [facility] [address] [facility] [address] [place] [address] Marina Proctor PA [address] [place] [address] [place] [address] documented as of this encounter Visit Diagnoses Not on filedocumented in this encounter Care Teams Cylinder Inspector Relationship Specialty Start Date End Date Malcolm Cid MD [address] [facility] 110 [place] [address] PCP - General Family Medicine 07/29/22 Malcolm Cid MD [address] [facility] [address] [place] [address] [address] - [facility] 05/30/22 Jayne Del Valle, RN Licensed Practical Nurse Family Medicine 04/07/2404/30 Merry Paz LPN 05/19/24 documented as of this encounter
--- OUTSIDE RECORDS SUMMARY | 2024-08-04 12:10 | XMS_ITS | Encounter Summary ---
Author Organization [facility] Address [address] [place] [address] Care Team Providers Care Captain Assistant Name Role Phone Malcolm Cid MD Primary Care Provider [phone] Malcolm Cid MD Unavailable Merry Paz LPN Unavailable Unavailable Reason for Visit * Reason Onset Date Comments Med Refill 06/26/2024 Encounter Details Date Type Department Care Team (Late st Contact Info) Description 06/26/2024 Refill [facility] [address] [facility] 110 [place] [address] Marina Proctor, PA [address] [place] [facility] 110 [place], [place] [id number] Rheumatoid arthritis involving multiple sites with positive [...] Recorded Patient Health Questionnaire-2 Score 0 05/18/2024 [facility] of Occupat ional Health - Occupational Stress [...] in the past 12 m [facility], were you homeless or living in a [...] pain, I would recommend he see a Welt Rougher to discuss treatment options for the Rheumatoid [...] [facility] [address] [facility] 110 [place] [address] Marina Proctor PA [address] [facility] [address] [place] [address] documented as of this encounter Visit Diagnoses Diagnosis Rheumatoid arthritis involving multiple sites with positive rheumatoid factor (CMS/[facility]) documented in this encounter Care Teams Captain Assistant Relationship Specialty Start Date End Date Malcolm Cid MD [address] [facility] 110 [place] [address] PCP - General Family Medicine 07/29/22 Malcolm Cid MD [address] [facility] 110 [place] [address] PCP - [facility] 05/30/22 Merry Paz LPN 05/19/24 documented as of this encounter
--- OUTSIDE RECORDS SUMMARY | 2024-08-04 12:10 | XMS_ITS | Encounter Summary ---
Author Organization [facility] Address [address] [place] [address] Care Team Providers Care Hotel Baggage Handler Name Role Phone Malcolm Cid MD Primary Care Provider [phone] Malcolm Cid MD Unavailable Merry Paz LPN Unavailable Unavailable Encounter Details Date Type Department Care Team (Late st Contact Info) Description 06/26/2024 Abstract [facility] [address] [place] [address] Merry Paz LPN Social History Tobacco Use [...] Recorded Patient Health Questionnaire-2 Score 0 05/18/2024 [facility] [place] of Occupat ional Health - Occupational Stress [...] 11:00 AM EDT Office Visit [facility] 112 [facility] 110 [place] [address] Marina Proctor PA [address] [place] [address] [address] documented as of this encounter Visit Diagnoses Not on filedocumented in this encounter Care Teams Hotel Baggage Handler Relationship Specialty Start Date End Date Malcolm Cid MD [address] [place] [address] [address] PCP - General Family Medicine 07/29/22 Malcolm Cid MD [address] [place] [address] [address] PCP - [facility] 05/30/22 Merry Paz LPN 05/19/24 documented as of this encounter
--- OUTSIDE RECORDS SUMMARY | 2024-08-04 13:00 | XMS_ITS | Encounter Summary ---
Author Organization [facility] Address [address] [place] [address] Care Team Providers Care Boardmarker Name Role Phone Malcolm Cid MD Primary Care Provider +1- [phone] Source Comments In the event this information is protected by the Federal Confidentiality of Alcohol and Drug AbusePatient Records regulations: The Federal rules restrict any use of the information to criminally investigate or prosecute any alcohol or drug abuse patient.[facility] Encounter Details Date Type Department Care Team (Late st Contact Info) Description 03/02/2018 Patient Msg Infectious Disease [address] [place], [place] [id number] Provider, Ccf Update rx's information Social History [...] 10/03/2024 8:00 AM EDT Office Visit Rheumatology [address] [place] [address] [place] [address] [place] [address] Return in about 9 months (around 10/03/2024). documented as of this encounter Visit Diagnoses Not on filedocumented in this encounter Care Teams Boardmarker Relationship Specialty Start Date End Date Malcolm Cid MD PCP - General Family Medicine 01/07/15 documented as of this encounter
--- OUTSIDE RECORDS SUMMARY | 2024-08-04 13:00 | XMS_ITS | Encounter Summary ---
Author Organization [facility] Address [address] [place] [address] Care Team Providers Care Balloon Artist Name Role Phone Malcolm Cid MD Primary Care Provider +1- [phone] Source Comments In the event this information is protected by the Federal Confidentiality of Alcohol and Drug AbusePatient Records regulations: The Federal rules restrict any use of the information to criminally investigate or prosecute any alcohol or drug abuse patient.[facility] Encounter Details Date Type Department Care Team (Late st Contact Info) Description 02/12/2020 Patient Msg Rheumatology [address] [place], [place] [id number] [place] [address] [place] [address] Lab reminder Social History Tobacco Use Types Packs/Day Years Used Date Smoking Tobacco: Never Smokeless Tobacco: Current Chew PHQ-2 Answer Date Recorded PHQ-2 score 6 11/09/2019 Area Deprivation Index Answer Date Adis rded National Score (1-100), lower number is lower ri sk Not on file 02/05/2020 State Score (1-10), lower number is lower risk N ot on file 02/05/2020 Data from: https://www.neighborhoodatlas.medicine.[facility]/. Last address used for calculation Not [...] 10/03/2024 8:00 AM EDT Office Visit Rheumatology [address] [place], [place] [phone] [place] [address] [place], [place] [id number] Return in about 9 months (around 10/03/2024). documented as of this encounter Visit Diagnoses Not on filedocumented in this encounter Care Teams Balloon Artist Relationship Specialty Start Date End Date Malcolm Cid MD PCP - General Family Medicine 01/07/15 documented as of this encounter
--- OUTSIDE RECORDS SUMMARY | 2024-08-04 13:00 | XMS_ITS | Encounter Summary ---
Author Organization [facility] Address [address] [place] [address] Care Team Providers Care Nutritionists Name Role Phone Malcolm Cid MD Primary Care Provider +1- [phone] Source Comments In the event this information is protected by the Federal Confidentiality of Alcohol and Drug AbusePatient Records regulations: The Federal rules restrict any use of the information to criminally investigate or prosecute any alcohol or drug abuse patient.[facility] Encounter Details Date Type Department Care Team (Late st Contact Info) Description 08/10/2018 Patient Msg Rheumatology [address] [place], [place] [id number] Provider, Ccf RE: Please reply back Social [...] 10/03/2024 8:00 AM EDT Office Visit Rheumatology [address] [place] [address] [place] [address] [place] [address] Return in about 9 months (around 10/03/2024). documented as of this encounter Visit Diagnoses Not on filedocumented in this encounter Care Teams Nutritionists Relationship Specialty Start Date End Date Malcolm Cid MD PCP - General Family Medicine 01/07/15 documented as of this encounter
--- OUTSIDE RECORDS SUMMARY | 2024-08-04 13:00 | XMS_ITS ---
Author Organization [facility] Address [address] [place] [address] Care Team Providers Care Rn Forensic Name Role Phone Malcolm Cid MD Primary Care Provider [phone] Mlacolm Cid MD Unavailable Merry Paz LPN Unavailable Unavailable Inpatient Discharge Transitional Care Management (TCM) Status:Closed (Closed) Start date:07/31/2024 Enrollment date:08/01/2024 Enrollment reason:Identified using hospital discharge data End date:08/01/2024 Close reason:Moved to 30 Day Monitoring Program Overview Patient discharged from [facility] on 07/31. Please contact for hospital AYSHA and schedule follow-up appointment within 7-14 days. Continued Care and Services Coordination
--- OUTSIDE RECORDS SUMMARY | 2024-08-04 13:00 | XMS_ITS | Encounter Summary ---
Author Organization [facility] Address [address] [place] [address] Care Team Providers Care Dairy Technician Name Role Phone Malcolm Cid MD Primary Care Provider +1- [phone] Source Comments In the event this information is protected by the Federal Confidentiality of Alcohol and Drug AbusePatient Records regulations: The Federal rules restrict any use of the information to criminally investigate or prosecute any alcohol or drug abuse patient.[facility] Encounter Details Date Type Department Care Team (Late st Contact Info) Description 04/22/2018 Patient Msg Rheumatology [address] [place], [place] [id number] [place] [address] [place], [place] [phone] Previsit lab reminder Social History Tobacco Use [...] 10/03/2024 8:00 AM EDT Office Visit Rheumatology [address] [place] [address] [place] [address] [place] [address] Return in about 9 months (around 10/03/2024). documented as of this encounter Visit Diagnoses Not on filedocumented in this encounter Care Teams Dairy Technician Relationship Specialty Start Date End Date Malcolm Cid MD PCP - General Family Medicine 01/07/15 documented as of this encounter
--- OUTSIDE RECORDS SUMMARY | 2024-08-04 13:00 | XMS_ITS | Encounter Summary ---
Author Organization [facility] Address [address] [place] [address] Care Team Providers Care Tank Operator Name Role Phone Malcolm Cid MD Primary Care Provider +1- [phone] Source Comments In the event this information is protected by the Federal Confidentiality of Alcohol and Drug AbusePatient Records regulations: The Federal rules restrict any use of the information to criminally investigate or prosecute any alcohol or drug abuse patient.[facility] Encounter Details Date Type Department Care Team (Late st Contact Info) Description 01/24/2019 Patient Msg Rheumatology [address] [place] [address] Provider, Ccf Message from Dr [...] 10/03/2024 8:00 AM EDT Office Visit Rheumatology [address] [place] [address] [place] [address] [place] [address] Return in about 9 months (around 10/03/2024). documented as of this encounter Visit Diagnoses Not on filedocumented in this encounter Care Teams Tank Operator Relationship Specialty Start Date End Date Malcolm Cid MD PCP - General Family Medicine 01/07/15 documented as of this encounter
--- OUTSIDE RECORDS SUMMARY | 2024-08-04 13:00 | XMS_ITS | Encounter Summary ---
Author Organization [facility] Address [address] [place] [address] Care Team Providers Care Marine Underwriter Name Role Phone Malcolm Cid MD Primary Care Provider +1- [phone] Source Comments In the event this information is protected by the Federal Confidentiality of Alcohol and Drug AbusePatient Records regulations: The Federal rules restrict any use of the information to criminally investigate or prosecute any alcohol or drug abuse patient.[facility] Encounter Details Date Type Department Care Team (Late st Contact Info) Description 03/16/2018 Patient Msg Infectious Disease [address] [place], [place] [id number] Provider, Ccf RE: Dr Castro reply- please [...] 10/03/2024 8:00 AM EDT Office Visit Rheumatology [address] [place] [address] [place] [address] [place] [address] Return in about 9 months (around 10/03/2024). documented as of this encounter Visit Diagnoses Not on filedocumented in this encounter Care Teams Marine Underwriter Relationship Specialty Start Date End Date Malcolm Cid MD PCP - General Family Medicine 01/07/15 documented as of this encounter
--- OUTSIDE RECORDS SUMMARY | 2024-08-04 13:00 | XMS_ITS | Encounter Summary ---
Author Organization [facility] Address [address] [place] [address] Care Team Providers Care Drying Unit Felting Machine Operator Name Role Phone Malcolm Cid MD Primary Care Provider +1- [phone] Source Comments In the event this information is protected by the Federal Confidentiality of Alcohol and Drug AbusePatient Records regulations: The Federal rules restrict any use of the information to criminally investigate or prosecute any alcohol or drug abuse patient.[facility] Encounter Details Date Type Department Care Team (Late st Contact Info) Description 02/27/2018 Patient Msg Rheumatology [address] [place] [address] [place] [address] [place], [place] [id number] March lab reminder Social History Tobacco Use [...] 10/03/2024 8:00 AM EDT Office Visit Rheumatology [address] [place] [address] [place] [address] [place] [address] Return in about 9 months (around 10/03/2024). documented as of this encounter Visit Diagnoses Not on filedocumented in this encounter Care Teams Drying Unit Felting Machine Operator Relationship Specialty Start Date End Date Malcolm Cid MD PCP - General Family Medicine 01/07/15 documented as of this encounter
--- OUTSIDE RECORDS SUMMARY | 2024-08-04 13:00 | XMS_ITS ---
Author Organization [facility] Address [address] [place] [address] Care Team Providers Care Housekeeping Cleaner Name Role Phone Malcolm Cid MD Primary Care Provider [phone] Malcolm Cid MD Unavailable Merry Paz LPN Unavailable Unavailable 30 Day Monitoring Program Status:Enrolled (Active) Start date:08/01/2024 Enrollment date:08/01/2024 Case Team Name Relationship Phone Jayne Del Valle RN(Responsible Staff) Registered Nurse [phone] Continued Care and Services Coordination
--- OUTSIDE RECORDS SUMMARY | 2024-08-04 13:00 | XMS_ITS | Clinical Summary ---
Author Organization [facility] Address [address] [place] [address] Care Team Providers Care Public Area Supervisor Name Role Phone Malcolm Cid MD Primary Care Provider [phone]- [phone] Medications amLODIPine (NORVASC) 5 mg tablet Take [...] is lower risk 8 08/14/2022 Data from: https://www.neighborhoodatlas.medicine.[facility]/. Last address used for calculation [address] [...] 10/03/2024 8:00 AM EDT Office Visit Rheumatology [address] [place], [place] [phone] [place] [address] [place] [address] Return in about 9 months (around 10/03/2024). [...] - 1.22 mg/dL 12/30/2023 2:55 PM EDT [facility] Estimated Glomerular Filtration Rate 73 >=60 mL/min/1.7 3m 12/30/2023 2:55 PM EDT [facility] Comment:Estimated Glomerular Filtration Rate (eGFR) is [...] EDT Delmy Castro MD LABORATORY Final Result [facility] [address] [place] [address] * HEP REMOTE PANEL BL (04/02/2020 10:12 AM EST) Hep B Core Ab, Total Negative Negative 04/02/2020 7:30 PM EST [facility] Hep C Antibody IA Negative Negative 04/02/2020 7:31 PM EST [facility] HBsAg Negative Negative 04/02/2020 7:31 PM EST [facility] Hep B Surface Ab, Qual Negative Negative 04/02/2020 7:31 PM EST [facility] Comment:NEGATIVE Blood BLOOD SPECIMEN / Unknown 04/02/2020 10:12 AM EST 04/02/2020 10:14 AM EST Joseph Olea APRN.[facility] Final Res ult Performing Organization Address City/[facility]/ZIP Co de Phone Number [facility] [address] [place] [address] [facility] [address] [place] [address] from Last 3 Months or Most Recently Relevant to Health Maintenance Insurance [employer] Care Teams Public Area Supervisor Relationship Specialty Start Date End Date Malcolm Cid MD PCP - General Family Medicine 01/07/15
--- OUTSIDE RECORDS SUMMARY | 2024-08-04 13:00 | XMS_ITS | Encounter Summary ---
Author Organization [facility] Address [address] [place] [address] Care Team Providers Care Boring Machine Operator Helper Name Role Phone Malcolm Cid MD Primary Care Provider +1- [phone] Source Comments In the event this information is protected by the Federal Confidentiality of Alcohol and Drug AbusePatient Records regulations: The Federal rules restrict any use of the information to criminally investigate or prosecute any alcohol or drug abuse patient.[facility] Encounter Details Date Type Department Care Team (Late st Contact Info) Description 03/10/2019 Patient Msg Rheumatology [address] [place], [place] [id number] [place] [address] [place], [place] [id number] Previsit lab reminder Social History Tobacco Use [...] 10/03/2024 8:00 AM EDT Office Visit Rheumatology [address] [place] [address] [place] [address] [place] [address] Return in about 9 months (around 10/03/2024). documented as of this encounter Visit Diagnoses Not on filedocumented in this encounter Care Teams Boring Machine Operator Helper Relationship Specialty Start Date End Date Malcolm Cid MD PCP - General Family Medicine 01/07/15 documented as of this encounter
--- OUTSIDE RECORDS SUMMARY | 2024-08-04 13:00 | XMS_ITS ---
Author Organization [facility] Address [address] [place] [address] Care Team Providers Care Electrostatic Paint Operator Name Role Phone Malcolm Cid MD Primary Care Provider [phone] Malcolm Cid MD Unavailable Merry Paz LPN [...]
--- OUTSIDE RECORDS SUMMARY | 2024-08-04 13:00 | XMS_ITS | Encounter Summary ---
Author Organization [facility] Address [address] [place] [address] Care Team Providers Care Plumbing Foreman Name Role Phone Malcolm Cid MD Primary Care Provider [phone]- [phone] Source Comments In the event this information is protected by the Federal Confidentiality of Alcohol and Drug AbusePatient Records regulations: The Federal rules restrict any use of the information to criminally investigate or prosecute any alcohol or drug abuse patient.[facility] Encounter Details Date Type Department Care Team (Late st Contact Info) Description 01/02/2019 Patient Msg Rheumatology [address] [place] [address] Provider, Ccf Please call our [...] 10/03/2024 8:00 AM EDT Office Visit Rheumatology [address] [place] [address] [place] [address] [place] [address] Return in about 9 months (around 10/03/2024). documented as of this encounter Visit Diagnoses Not on filedocumented in this encounter Care Teams Plumbing Foreman Relationship Specialty Start Date End Date Malcolm Cid MD PCP - General Family Medicine 01/07/15 documented as of this encounter
--- OUTSIDE RECORDS SUMMARY | 2024-08-04 13:00 | XMS_ITS | Encounter Summary ---
Author Organization [facility] Address [address] [place] [address] Care Team Providers Care Pickler Helper Name Role Phone Malcolm Cid MD Primary Care Provider +1- [phone] Source Comments In the event this information is protected by the Federal Confidentiality of Alcohol and Drug AbusePatient Records regulations: The Federal rules restrict any use of the information to criminally investigate or prosecute any alcohol or drug abuse patient.[facility] Encounter Details Date Type Department Care Team (Late st Contact Info) Description 07/05/2019 Patient Msg Rheumatology [address] [place] [address] Provider, Ccf Lab reminder from [...] 10/03/2024 8:00 AM EDT Office Visit Rheumatology [address] [place] [address] [place] [address] [place] [address] Return in about 9 months (around 10/03/2024). documented as of this encounter Visit Diagnoses Not on filedocumented in this encounter Care Teams Pickler Helper Relationship Specialty Start Date End Date Malcolm Cid MD PCP - General Family Medicine 01/07/15 documented as of this encounter
--- OUTSIDE RECORDS SUMMARY | 2024-08-04 13:00 | XMS_ITS | Encounter Summary ---
Author Organization [facility] Address [address] [place] [address] Care Team Providers Care Horizontal Resaw Operator Name Role Phone Malcolm Cid MD Primary Care Provider +1- [phone] Source Comments In the event this information is protected by the Federal Confidentiality of Alcohol and Drug AbusePatient Records regulations: The Federal rules restrict any use of the information to criminally investigate or prosecute any alcohol or drug abuse patient.[facility] Encounter Details Date Type Department Care Team (Late st Contact Info) Description 11/12/2019 Patient Msg Rheumatology [address] [place], [place] [id number] [place] [address] [place], [place] [phone] Lab reminder Social History Tobacco Use Types [...] 10/03/2024 8:00 AM EDT Office Visit Rheumatology [address] [place] [address] [place] [address] [place] [address] Return in about 9 months (around 10/03/2024). documented as of this encounter Visit Diagnoses Not on filedocumented in this encounter Care Teams Horizontal Resaw Operator Relationship Specialty Start Date End Date Malcolm Cid MD PCP - General Family Medicine 01/07/15 documented as of this encounter
--- OUTSIDE RECORDS SUMMARY | 2024-08-04 13:00 | XMS_ITS | Encounter Summary ---
Author Organization [facility] Address [address] [place] [address] Care Team Providers Care Spa Technician Name Role Phone Malcolm Cid MD Primary Care Provider +1- [phone] Source Comments In the event this information is protected by the Federal Confidentiality of Alcohol and Drug AbusePatient Records regulations: The Federal rules restrict any use of the information to criminally investigate or prosecute any alcohol or drug abuse patient.[facility] Encounter Details Date Type Department Care Team (Late st Contact Info) Description 08/03/2018 Patient Msg Infectious Disease [address] [place], [place] [id number] Provider, Ccf RE: Dr Castro office- Message. [...] 10/03/2024 8:00 AM EDT Office Visit Rheumatology [address] [place] [address] [place] [address] [place] [address] Return in about 9 months (around 10/03/2024). documented as of this encounter Visit Diagnoses Not on filedocumented in this encounter Care Teams Spa Technician Relationship Specialty Start Date End Date Malcolm Cid MD PCP - General Family Medicine 01/07/15 documented as of this encounter
--- OUTSIDE RECORDS SUMMARY | 2024-08-04 13:00 | XMS_ITS | Encounter Summary ---
Author Organization [facility] Address [address] [place] [address] Care Team Providers Care Beam Saw Operator Name Role Phone Malcolm Cid MD Primary Care Provider +1- [phone] Source Comments In the event this information is protected by the Federal Confidentiality of Alcohol and Drug AbusePatient Records regulations: The Federal rules restrict any use of the information to criminally investigate or prosecute any alcohol or drug abuse patient.[facility] Encounter Details Date Type Department Care Team (Late st Contact Info) Description 08/12/2018 Patient Msg Rheumatology [address] [place], [place] [id number] Provider, Ccf Dr Castro reply to your [...] 10/03/2024 8:00 AM EDT Office Visit Rheumatology [address] [place], [place] [phone] [place] [address] [place] [address] Return in about 9 months (around 10/03/2024). documented as of this encounter Visit Diagnoses Not on filedocumented in this encounter Care Teams Beam Saw Operator Relationship Specialty Start Date End Date Malcolm Cid MD PCP - General Family Medicine 01/07/15 documented as of this encounter
--- OUTSIDE RECORDS SUMMARY | 2024-08-04 13:00 | XMS_ITS | Encounter Summary ---
Author Organization [facility] Address [address] [place] [address] Care Team Providers Care Child Protective Investigator Name Role Phone Malcolm Cid MD Primary Care Provider +1- [phone] Source Comments In the event this information is protected by the Federal Confidentiality of Alcohol and Drug AbusePatient Records regulations: The Federal rules restrict any use of the information to criminally investigate or prosecute any alcohol or drug abuse patient.[facility] Encounter Details Date Type Department Care Team (Late st Contact Info) Description 03/10/2019 Patient Msg Rheumatology [address] [place], [place] [phone] [place] [address] [place], [place] [phone] April lab reminder Social History Tobacco Use [...] 10/03/2024 8:00 AM EDT Office Visit Rheumatology [address] [place] [address] [place] [address] [place] [address] Return in about 9 months (around 10/03/2024). documented as of this encounter Visit Diagnoses Not on filedocumented in this encounter Care Teams Child Protective Investigator Relationship Specialty Start Date End Date Malcolm Cid MD PCP - General Family Medicine 01/07/15 documented as of this encounter
--- OUTSIDE RECORDS SUMMARY | 2024-08-04 13:00 | XMS_ITS | Encounter Summary ---
Author Organization [facility] Address [address] [place] [address] Care Team Providers Care Senior Administrative Assistant Name Role Phone Malcolm Cid MD Primary Care Provider +1- [phone] Source Comments In the event this information is protected by the Federal Confidentiality of Alcohol and Drug AbusePatient Records regulations: The Federal rules restrict any use of the information to criminally investigate or prosecute any alcohol or drug abuse patient.[facility] Encounter Details Date Type Department Care Team (Late st Contact Info) Description 08/12/2018 Patient Msg Rheumatology [address] [place], [place] [id number] Provider, Ccalvarado RE: Reply Social History Tobacco [...] 10/03/2024 8:00 AM EDT Office Visit Rheumatology [address] [place] [address] [place] [address] [place] [address] Return in about 9 months (around 10/03/2024). documented as of this encounter Visit Diagnoses Not on filedocumented in this encounter Care Teams Senior Administrative Assistant Relationship Specialty Start Date End Date Malcolm Cid MD PCP - General Family Medicine 01/07/15 documented as of this encounter
--- OUTSIDE RECORDS SUMMARY | 2024-08-04 13:00 | XMS_ITS | Encounter Summary ---
Author Organization [facility] Address [address] [place] [address] Care Team Providers Care Head Of Sales Promotion Name Role Phone Malcolm Cid MD Primary Care Provider +1- [phone] Source Comments In the event this information is protected by the Federal Confidentiality of Alcohol and Drug AbusePatient Records regulations: The Federal rules restrict any use of the information to criminally investigate or prosecute any alcohol or drug abuse patient.[facility] Encounter Details Date Type Department Care Team (Late st Contact Info) Description 03/04/2018 Patient Msg Infectious Disease [address] [place], [place] [phone] Provider, Ccf Dr Castro reply Social History [...] 10/03/2024 8:00 AM EDT Office Visit Rheumatology [address] [place] [address] [place] [address] [place] [address] Return in about 9 months (around 10/03/2024). documented as of this encounter Visit Diagnoses Not on filedocumented in this encounter Care Teams Head Of Sales Promotion Relationship Specialty Start Date End Date Malcolm Cid MD PCP - General Family Medicine 01/07/15 documented as of this encounter
--- OUTSIDE RECORDS SUMMARY | 2024-08-04 13:00 | XMS_ITS | Encounter Summary ---
Author Organization [facility] Address [address] [place] [address] Care Team Providers Care Senior Electronics Design Engineer Name Role Phone Malcolm Cid MD Primary Care Provider [phone] Source Comments In the event this information is protected by the Federal Confidentiality of Alcohol and Drug AbusePatient Records regulations: The Federal rules restrict any use of the information to criminally investigate or prosecute any alcohol or drug abuse patient.[facility] Encounter Details Date Type Department Care Team (Late st Contact Info) Description 07/29/2018 Patient Msg Rheumatology [address] [place], [place] [address] [place] [address] [place], [place] [id number] September lab reminder Social History Tobacco Use [...] 10/03/2024 8:00 AM EDT Office Visit Rheumatology [address] [place] [address] [place] [address] [place] [address] Return in about 9 months (around 10/03/2024). documented as of this encounter Visit Diagnoses Not on filedocumented in this encounter Care Teams Senior Electronics Design Engineer Relationship Specialty Start Date End Date Malcolm Cid MD PCP - General Family Medicine 01/07/15 documented as of this encounter
--- OUTSIDE RECORDS SUMMARY | 2024-08-04 13:00 | XMS_ITS | Encounter Summary ---
Author Organization [facility] Address [address] [place] [address] Care Team Providers Care English Instructor Name Role Phone Maclolm Cid MD Primary Care Provider [phone] Source Comments In the event this information is protected by the Federal Confidentiality of Alcohol and Drug AbusePatient Records regulations: The Federal rules restrict any use of the information to criminally investigate or prosecute any alcohol or drug abuse patient.[facility] Encounter Details Date Type Department Care Team (Late st Contact Info) Description 02/11/2018 Patient Msg Rheumatology [address] [place] [address] Provider, Ccf response - Dr [...] No 04/26/2017 6:15 PM Orlaia Hurtado RN documented as of this encounter [...] 10/03/2024 8:00 AM EDT Office Visit Rheumatology [address] [place] [address] [place] [address] [place] [address] Return in about 9 months (around 10/03/2024). documented as of this encounter Visit Diagnoses Not on filedocumented in this encounter Care Teams English Instructor Relationship Specialty Start Date End Date Malcolm Cid MD PCP - General Family Medicine 01/07/15 documented as of this encounter
--- OUTSIDE RECORDS SUMMARY | 2024-08-04 13:01 | XMS_ITS | Encounter Summary ---
Author Organization [facility] Address [address] [place] [address] Care Team Providers Care Inside Barrel Polisher Name Role Phone Malcolm Cid MD Primary Care Provider [phone] Malcolm Cid MD Unavailable Wednesday, Alma AQUINON Unavailable [phone] Jayne Del Valle RN Unavailable Merry Paz SIZE STAMPER Unavailable Unavailable Encounter Details Date Type Department Care Team (Late st Contact Info) Description 08/23/2023 Abstract [facility] [address] [facility] 110 [place] [id number] Malcolm Cid MD 112 [facility] 110 [place], [place] [phone] Social History Tobacco Use Types Packs/Day Years [...] 08/07/2024 11:00 AM EDT Office Visit [facility] [address] [facility] 110 [place] [address] Marian Proctor PA [address] [place] [address] documented as of this encounter Visit Diagnoses Not on filedocumented in this encounter Care Teams Inside Barrel Polisher Relationship Specialty Start Date End Date Malcolm Cid MD [address] [place] [address] PCP - General Family Medicine 07/29/22 Malcolm Cid MD [address] [place] [address] PCP - [facility] 05/30/22Wednesday, BREE Marquez [address] [place] [address] Licensed Practical Nurse Family Medicine 06/04/23 Jayne Del Valle, DELMIS Licensed Practical Nurse Family Medicine 04/07/2404/30 Merry Paz LPN 05/19/24 documented as of this encounter
--- OUTSIDE RECORDS SUMMARY | 2024-08-04 13:01 | XMS_ITS | Encounter Summary ---
Author Organization [facility] Address [address] [place] [address] Care Team Providers Care Conservation Technician Name Role Phone Malcolm Cid MD Primary Care Provider [phone] Source Comments In the event this information is protected by the Federal Confidentiality of Alcohol and Drug AbusePatient Records regulations: The Federal rules restrict any use of the information to criminally investigate or prosecute any alcohol or drug abuse patient.[facility] Encounter Details Date Type Department Care Team (Late st Contact Info) Description 12/27/2018 Patient Msg Rheumatology [address] [place], [place] [id number] Provider, Ccf reply Social History Tobacco Use [...] 10/03/2024 8:00 AM EDT Office Visit Rheumatology [address] [place] [address] [place] [address] [place] [address] Return in about 9 months (around 10/03/2024). documented as of this encounter Visit Diagnoses Not on filedocumented in this encounter Care Teams Conservation Technician Relationship Specialty Start Date End Date Malcolm Cid MD PCP - General Family Medicine 01/07/15 documented as of this encounter
--- OUTSIDE RECORDS SUMMARY | 2024-08-04 13:01 | XMS_ITS | Encounter Summary ---
Author Organization [facility] Address [address] [place] [address] Care Team Providers Care Single Corner Cutter Name Role Phone Malcolm Cid MD Primary Care Provider [phone] Malcolm Cid MD Unavailable Wednesday, Alma AQUINON Unavailable [phone] Jayne Del Valle RN Unavailable [phone] Merry Paz LAYOUT FORMER Unavailable Unavailable Reason for Visit * Reason Onset Date Comments Med Refill 10/01/2023 Encounter Details Date Type Department Care Team (Late st Contact Info) Description 10/01/2023 Refill [facility] [address] [facility] 110 [place] [address] Marina Proctor, PA [address] [place] [address] Rheumatoid arthritis involving multiple sites with positive rheumatoid factor ([facility]/HCC) Social History Tobacco Use Types Packs/Day [...] care, and heating? Not very hard 09/14/2022 [facility] [place] of Occupat ional Health - Occupational Stress [...] Visit [facility] [address] [facility] 110 [place] [address] Marina Proctor PA [address] [facility] 110 [place] [address] documented as of this encounter Visit Diagnoses Diagnosis 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) documented in this encounter Care Teams Single Corner Cutter Relationship Specialty Start Date End Date Malcolm Cid MD [address] [facility] 110 [place] [address] PCP - General Family Medicine 07/29/22 Malcolm Cid MD [address] [facility] [facility] 110 [place] [address] PCP - [facility] 05/30/22Wednesday, BREE Marquez 112 [facility] 110 [place] [address] Licensed Practical Nurse Family Medicine 06/04/23 Jayne Del Valle, RN Licensed Practical Nurse Family Medicine 04/07/2404/30 Merry Paz LPN 05/19/24 documented as of this encounter
--- OUTSIDE RECORDS SUMMARY | 2024-08-04 13:01 | XMS_ITS | Encounter Summary ---
Author Organization [facility] Address [address] [place] [address] Care Team Providers Care Project Safety Manager Name Role Phone Malcolm Cid MD Primary Care Provider [phone]- [phone] Source Comments In the event this information is protected by the Federal Confidentiality of Alcohol and Drug AbusePatient Records regulations: The Federal rules restrict any use of the information to criminally investigate or prosecute any alcohol or drug abuse patient.[facility] Encounter Details Date Type Department Care Team (Late st Contact Info) Description 09/09/2018 Patient Msg Rheumatology [address] [place], [place] [phone] Provider, Ccf Reply Social History Tobacco Use [...] 10/03/2024 8:00 AM EDT Office Visit Rheumatology [address] [place] [address] [place] [address] [place] [address] Return in about 9 months (around 10/03/2024). documented as of this encounter Visit Diagnoses Not on filedocumented in this encounter Care Teams Project Safety Manager Relationship Specialty Start Date End Date Malcolm Cid MD PCP - General Family Medicine 01/07/15 documented as of this encounter
--- OUTSIDE RECORDS SUMMARY | 2024-08-04 13:01 | XMS_ITS | Encounter Summary ---
Author Organization [facility] Address [address] [place] [address] Care Team Providers Care Mill Operator Head Name Role Phone Malcolm Cid MD Primary Care Provider [phone] Source Comments In the event this information is protected by the Federal Confidentiality of Alcohol and Drug AbusePatient Records regulations: The Federal rules restrict any use of the information to criminally investigate or prosecute any alcohol or drug abuse patient.[facility] Encounter Details Date Type Department Care Team (Late st Contact Info) Description 04/04/2020 Patient Msg Rheumatology [address] [place], [place] [phone] Provider, Ccf Results Social History Tobacco Use [...] on file 02/05/2020 Data from: https://www.neighborhoodatlas.medicine.[facility].edu/. Last address used for calculation Not [...] 10/03/2024 8:00 AM EDT Office Visit Rheumatology [address] [place] [address] [place] [address] [place], [place] [id number] Return in about 9 months (around 10/03/2024). documented as of this encounter Visit Diagnoses Not on filedocumented in this encounter Care Teams Mill Operator Head Relationship Specialty Start Date End Date Malcolm Cid MD PCP - General Family Medicine 01/07/15 documented as of this encounter
--- OUTSIDE RECORDS SUMMARY | 2024-08-04 13:01 | XMS_ITS | Clinical Summary ---
Author Organization [facility] Address [address] [place] [address] Care Team Providers Care Cobol Application Developer Name Role Phone Malcolm Cid MD Primary Care Provider Allergies No known active allergies Medications gabapentin [...] ID:Not on file Type:Not on file Address: [address] [employer] Advance Directives * Full Code (Latest Code Status on File) Date Activated Date Inactivated Comments 04/26/2015 11:58 PM 04/28/2015 7:53 PM * Full Code Date Activated Date Inactivated Comments 02/24/2015 8:57 PM 02/28/2015 4:48 PM Care Teams Cobol Application Developer Relationship Specialty Start Date End Date Malcolm Cid MD PCP - General 02/24/15
--- OUTSIDE RECORDS SUMMARY | 2024-08-04 13:01 | XMS_ITS | Encounter Summary ---
Author Organization [facility] Address [address] [place] [address] Care Team Providers Care Topstitcher Lockstitch Name Role Phone Malcolm Cid MD Primary Care Provider [phone] Source Comments In the event this information is protected by the Federal Confidentiality of Alcohol and Drug AbusePatient Records regulations: The Federal rules restrict any use of the information to criminally investigate or prosecute any alcohol or drug abuse patient.[facility] Encounter Details Date Type Department Care Team (Late st Contact Info) Description 05/09/2020 Patient Msg Rheumatology [address] [place], [place] [phone] Provider, Ccf Results Social History Tobacco Use [...] on file 02/05/2020 Data from: https://www.neighborhoodatlas.medicine.[facility].edu/. Last address used for calculation Not [...] 10/03/2024 8:00 AM EDT Office Visit Rheumatology [address] [place] [address] [place] [address] [place] [address] Return in about 9 months (around 10/03/2024). documented as of this encounter Visit Diagnoses Not on filedocumented in this encounter Care Teams Topstitcher Lockstitch Relationship Specialty Start Date End Date Malcolm Cid MD PCP - General Family Medicine 01/07/15 documented as of this encounter
--- OUTSIDE RECORDS SUMMARY | 2024-08-04 13:01 | XMS_ITS | Encounter Summary ---
Author Organization [facility] Address [address] [place] [address] Care Team Providers Care Print Color Matcher Name Role Phone Malcolm Cid MD Primary Care Provider [phone]- [phone] Source Comments In the event this information is protected by the Federal Confidentiality of Alcohol and Drug AbusePatient Records regulations: The Federal rules restrict any use of the information to criminally investigate or prosecute any alcohol or drug abuse patient.[facility] Encounter Details Date Type Department Care Team (Late st Contact Info) Description 10/28/2018 Patient Msg Rheumatology [address] [place], [place] [phone] Provider, Ccf Dr Castro reply Social History [...] 10/03/2024 8:00 AM EDT Office Visit Rheumatology [address] [place] [address] [place] [address] [place] [address] Return in about 9 months (around 10/03/2024). documented as of this encounter Visit Diagnoses Not on filedocumented in this encounter Care Teams Print Color Matcher Relationship Specialty Start Date End Date Malcolm Cid MD PCP - General Family Medicine 01/07/15 documented as of this encounter
--- OUTSIDE RECORDS SUMMARY | 2024-08-04 13:01 | XMS_ITS | Encounter Summary ---
Author Organization [facility] Address [address] [place] [address] Care Team Providers Care Enologist Name Role Phone Malcolm Cid MD Primary Care Provider [phone] Malcolm Cid MD Unavailable Wednesday, Alma AQUINON Unavailable [phone] Jayne Del Valle RN Unavailable [phone] Merry Paz TRANSISTOR TESTER Unavailable Unavailable Reason for Visit * Reason Onset Date Comments Med Refill 08/23/2023 Encounter Details Date Type Department Care Team (Late st Contact Info) Description 08/23/2023 Refill [facility] [address] [facility] 110 [place] [address] Malcolm Cid MD [address] [place], [place] [phone] Rheumatoid arthritis involving multiple sites with positive rheumatoid factor ([facility]/HCC) Social History Tobacco Use Types Packs/Day [...] care, and heating? Not very hard 09/14/2022 [facility] [place] of Occupat ional Health - Occupational Stress [...] Visit [facility] [address] [facility] 110 [place] [address] Marina Proctor PA [address] [facility] 110 [place] [address] documented as of this encounter Visit Diagnoses Diagnosis 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) documented in this encounter Care Teams Enologist Relationship Specialty Start Date End Date Malcolm Cid MD [address] [facility] 110 [place] [address] PCP - General Family Medicine 07/29/22 Malcolm Cid MD [address] [facility] 110 [place] [address] PCP - [facility] 05/30/22Wednesday, BREE Marquez 112 [facility] 110 [place] [address] Licensed Practical Nurse Family Medicine 06/04/23 Jayne Del Valle, RN Licensed Practical Nurse Family Medicine 04/07/2404/30 Merry Paz LPN 05/19/24 documented as of this encounter
--- OUTSIDE RECORDS SUMMARY | 2024-08-04 13:01 | XMS_ITS | Encounter Summary ---
Author Organization [facility] Address [address] [place] [address] Care Team Providers Care General Surgeon Name Role Phone Malcolm Cid MD Primary Care Provider [phone] Malcolm iCd MD Unavailable Wednesday, Alma AQUINON Unavailable [phone] Jayne Del Valle RN Unavailable Merry Paz GOLD NIB GRINDER Unavailable Unavailable Encounter Details Date Type Department Care Team (Late st Contact Info) Description 2023 Abstract [facility] [address] [facility] 110 [place] [address] Malcolm Cid MD 112 [facility] 110 [place], [place] [address] Social History Tobacco Use Types Packs/Day Years [...] 08/07/2024 11:00 AM EDT Office Visit [facility] [address] [facility] 110 [place] [address] Marina Proctor PA [address] [facility] 110 [place] [address] documented as of this encounter Visit Diagnoses Not on filedocumented in this encounter Care Teams General Surgeon Relationship Specialty Start Date End Date Malcolm Cid MD [address] [facility] 110 [place] [address] PCP - General Family Medicine 07/29/22 Malcolm Cid MD [address] [place] [address] PCP - [facility] 05/30/22Wednesday, BREE Marquez [address] [place] [address] Licensed Practical Nurse Family Medicine 06/04/23 Jayne Del Valle, DELMIS Licensed Practical Nurse Family Medicine 04/07/2404/30 Merry Paz LPN 05/19/24 documented as of this encounter
--- OUTSIDE RECORDS SUMMARY | 2024-08-04 13:01 | XMS_ITS | Encounter Summary ---
Author Organization [facility] Address [address] [place] [address] Care Team Providers Care Insurance Claim Auditor Name Role Phone Malcolm Cid MD Primary Care Provider [phone] Malcolm Cid MD Unavailable Wednesday, Alma AQUINON Unavailable [phone] Jayne Del Valle RN Unavailable [phone] Merry Paz WATER METER READER Unavailable Unavailable Encounter Details Date Type Department Care Team (Late st Contact Info) Description 07/06/2023 Abstract [facility] 112 [facility] 110 [place] [address] Malcolm Cid MD [address] [facility] 110 [place], [place] [phone] Social History Tobacco Use Types Packs/Day Years [...] 08/07/2024 11:00 AM EDT Office Visit [facility] [address] [facility] 110 [place] [address] Marina Proctor PA [address] [place] [address] documented as of this encounter Visit Diagnoses Not on filedocumented in this encounter Care Teams Insurance Claim Auditor Relationship Specialty Start Date End Date Malcolm Cid MD [address] [place] [address] PCP - General Family Medicine 07/29/22 Malcolm Cid MD [address] [place] [address] PCP - [facility] 05/30/22Wednesday, BREE Marquez [address] [place] [address] Licensed Practical Nurse Family Medicine 06/04/23 Jayne Del Valle, DELMIS Licensed Practical Nurse Family Medicine 04/07/2404/30 Merry Paz LPN 05/19/24 documented as of this encounter
--- OUTSIDE RECORDS SUMMARY | 2024-08-04 13:01 | XMS_ITS | Encounter Summary ---
Author Organization [facility] Address [address] [place] [address] Care Team Providers Care Mill Work Name Role Phone Malcolm Cid MD Primary Care Provider [phone] Malcolm Cid MD Unavailable Wednesday, Alma AQUINON Unavailable [phone] Jayne Del Valle RN Unavailable Merry Paz RADIOISOTOPE PRODUCTION OPERATOR Unavailable Unavailable Encounter Details Date Type Department Care Team (Late st Contact Info) Description 06/25/2023 Abstract [facility] [address] [facility] 110 [place] [address] Malcolm Cid MD 112 [facility] 110 [place], [place] [address] Social History Tobacco Use Types Packs/Day Years [...] care, and heating? Not very hard 09/14/2022 [facility] of Occupat ional Health - Occupational [...] [facility] [address] [place] 110 [place] [address] Marina Proctor PA [address] [place] [address] documented as of this encounter Visit Diagnoses Not on filedocumented in this encounter Care Teams Mill Work Relationship Specialty Start Date End Date Malcolm Cid MD [address] [place] [address] PCP - General Family Medicine 07/29/22 Malcolm Cid MD [address] [place] [address] PCP - [facility] 05/30/22Wednesday, BREE Marquez [address] [place] [address] Licensed Practical Nurse Family Medicine 06/04/23 Jayne Del Valle, DELMIS Licensed Practical Nurse Family Medicine 04/07/2404/30 Merry Paz LPN 05/19/24 documented as of this encounter
--- OUTSIDE RECORDS SUMMARY | 2024-08-04 13:01 | XMS_ITS | Encounter Summary ---
Author Organization [facility] Address [address] [place] [address] Care Team Providers Care Airport Operations Manager Name Role Phone Malcolm Cid MD Primary Care Provider [phone] Malcolm Cid MD Unavailable Wednesday, Alma AQUINON Unavailable [phone] Jayne Del Valle RN Unavailable [phone] Merry Paz LEGISLATIVE ANALYST Unavailable Unavailable Encounter Details Date Type Department Care Team (Late st Contact Info) Description 07/06/2023 Abstract [facility] 112 [facility] 110 [place] [address] Malcolm Cid MD 112 [facility] 110 [place], [place] [address] Social History Tobacco Use Types Packs/Day Years [...] 11:00 AM EDT Office Visit [facility] [address] [facility] 110 [place] [address] Marina Proctor PA [address] [place] [address] documented as of this encounter Visit Diagnoses Not on filedocumented in this encounter Care Teams Airport Operations Manager Relationship Specialty Start Date End Date Malcolm Cid MD [address] [place] [address] PCP - General Family Medicine 07/29/22 Malcolm Cid MD [address] [place] [address] PCP - [facility] 05/30/22Wednesday, BREE Marquez [address] [place] [address] Licensed Practical Nurse Family Medicine 06/04/23 Jayne Del Valle, DELMIS Licensed Practical Nurse Family Medicine 04/07/2404/30 Merry Paz LPN 05/19/24 documented as of this encounter
--- OUTSIDE RECORDS SUMMARY | 2024-08-04 13:01 | XMS_ITS | Encounter Summary ---
Author Organization [facility] Address [address] [place] [address] Care Team Providers Care Field Logistics Coordinator Name Role Phone Malcolm Cid MD Primary Care Provider [phone] Source Comments In the event this information is protected by the Federal Confidentiality of Alcohol and Drug AbusePatient Records regulations: The Federal rules restrict any use of the information to criminally investigate or prosecute any alcohol or drug abuse patient.[facility] Encounter Details Date Type Department Care Team (Late st Contact Info) Description 11/25/2018 Patient Msg Rheumatology [address] [place], [place] [phone] [place] [address] [place] [address] December lab reminder Social History Tobacco Use [...] 10/03/2024 8:00 AM EDT Office Visit Rheumatology [address] [place] [address] [place] [address] [place] [address] Return in about 9 months (around 10/03/2024). documented as of this encounter Visit Diagnoses Not on filedocumented in this encounter Care Teams Field Logistics Coordinator Relationship Specialty Start Date End Date Malcolm Cid MD PCP - General Family Medicine 01/07/15 documented as of this encounter
--- OUTSIDE RECORDS SUMMARY | 2024-08-04 13:01 | XMS_ITS | Encounter Summary ---
Author Organization [facility] Address [address] [place] [address] Care Team Providers Care Research Greenhouse Supervisor Name Role Phone Malcolm Cid MD Primary Care Provider [phone] Malcolm Cid MD Unavailable Wednesday, [place] AQUIN[place] Unavailable [phone] Jayne Del Valle RN Unavailable Merry Paz MOVEMENT ASSEMBLY FINAL INSPECTOR Unavailable Unavailable Reason for Visit * Reason Onset Date Comments Med Refill 08/30/2023 Encounter Details Date Type Department Care Team (Late st Contact Info) Description 08/30/2023 Refill [facility] [address] [facility] 110 [place] [id number] Malcolm Cid MD [address] [facility] 110 [place], [place] [address] Social History Tobacco Use Types Packs/Day Years [...] care, and heating? Not very hard 09/14/2022 [facility] [place] of Occupat ional Health - Occupational Stress [...] Visit [facility] [address] [facility] 110 [place] [address] Marina Proctor PA [address] [facility] 110 [place] [address] documented as of this encounter Visit Diagnoses Not on filedocumented in this encounter Care Teams Research Greenhouse Supervisor Relationship Specialty Start Date End Date Malcolm Cid MD [address] [facility] 110 [place] [address] PCP - General Family Medicine 07/29/22 Malcolm Cid MD [address] [place] [address] [place] [address] PCP - [facility] 05/30/22Wednesday, BREE Marquez [address] [place] [address] Licensed Practical Nurse Family Medicine 06/04/23 Jayne Del Valle, RN Licensed Practical Nurse Family Medicine 04/07/2404/30 Merry Paz LPN 05/19/24 documented as of this encounter
--- OUTSIDE RECORDS SUMMARY | 2024-08-04 13:01 | XMS_ITS | Encounter Summary ---
Author Organization [facility] Address [address] [place] [address] Care Team Providers Care Rotary Surface Grinder Name Role Phone Malcolm Cid MD Primary Care Provider [phone] Malcolm Cid MD Unavailable Wednesday, [place] AQUINON Unavailable [phone] Jayne Del Valle RN Unavailable Merry Paz CREEL CLEANER Unavailable Unavailable Reason for Visit * Reason Onset Date Comments Med Refill 03/16/2023 Tr[facility] Encounter Details Date Type Department Care Team (Late st Contact Info) Description 03/16/2023 Refill [facility] [address] [facility] 110 [place] [phone] Malcolm Cid MD [address] [facility] 110 [place] [address] Rheumatoid arthritis involving multiple sites [...] care, and heating? Not very hard 09/14/2022 [facility] [place] of Occupat ional Health - Occupational Stress [...] [address] [place] [address] [place] [address] Marina Proctor PA [address] [place] [address] [place] [address] documented as of this encounter Visit Diagnoses Diagnosis Rheumatoid arthritis involving multiple sites with positive rheumatoid factor ([facility]) documented in this encounter Care Teams Rotary Surface Grinder Relationship Specialty Start Date End Date Malcolm Cid MD [address] [place] [address] [place] [address] PCP - General Family Medicine 07/29/22 Malcolm Cid MD [address] [place] [address] [place] [address] PCP - [facility] 05/30/22Wednesday, BREE Marquez [address] [place] [address] Licensed Practical Nurse Family Medicine 06/04/23 Jayne Del Valle, RN Licensed Practical Nurse Family Medicine 04/07/2404/30 Merry Paz LPN 05/19/24 documented as of this encounter
--- OUTSIDE RECORDS SUMMARY | 2024-08-04 13:01 | XMS_ITS | Encounter Summary ---
Author Organization [facility] Address [address] [place] [address] Care Team Providers Care Gravure Printing Machinist Name Role Phone Malcolm Cid MD Primary Care Provider [phone] Malcolm Cid MD Unavailable Wednesday, [place] AQUIN[place] Unavailable [phone] Jayne Del Valle RN Unavailable Merry Paz HOUSE NURSE Unavailable Unavailable Encounter Details Date Type Department Care Team (Late st Contact Info) Description 03/08/2023 Abstract [facility] [address] [facility] 110 [place] [address] Malcolm Cid MD 112 [facility] 110 [place], [place] [id number] Social History Tobacco Use Types Packs/Day Years [...] Office Visit [facility] [address] [facility] 110 [place] [address] Marina Proctor PA [address] [facility] 110 [place] [address] documented as of this encounter Visit Diagnoses Not on filedocumented in this encounter Care Teams Gravure Printing Machinist Relationship Specialty Start Date End Date Malcolm Cid MD [address] [facility] 110 [place] [address] PCP - General Family Medicine 07/29/22 Malcolm Cid MD [address] [place] [address] [place] [address] PCP - [facility] 05/30/22Wednesday, BREE Marquez [address] [place] [address] Licensed Practical Nurse Family Medicine 06/04/23 Jayne Del Valle, DELMIS Licensed Practical Nurse Family Medicine 04/07/2404/30 Merry Paz LPN 05/19/24 documented as of this encounter
--- OUTSIDE RECORDS SUMMARY | 2024-08-04 13:01 | XMS_ITS | Encounter Summary ---
Author Organization [facility] Address [address] [place] [address] Care Team Providers Care Search Engine Optimization Specialist Name Role Phone Malcolm Cid MD Primary Care Provider [phone] Source Comments In the event this information is protected by the Federal Confidentiality of Alcohol and Drug AbusePatient Records regulations: The Federal rules restrict any use of the information to criminally investigate or prosecute any alcohol or drug abuse patient.[facility] Encounter Details Date Type Department Care Team (Late st Contact Info) Description 04/05/2020 Patient Msg Rheumatology [address] [place], [place] [id number] Provider, Ccf Results Social History Tobacco Use Types Packs/Day Years Used Date Smoking Tobacco: Never Smokeless Tobacco: Current Chew PHQ-2 Answer Date Recorded PHQ-2 score 4 03/31/2020 Area Deprivation Index Answer Date Adis rded National Score (1-100), lower number is lower ri sk Not on file 02/05/2020 State Score (1-10), lower number is lower risk N ot on file 02/05/2020 Data from: https://www.neighborhoodatlas.medicine.[facility].edu/. Last address used for calculation Not [...] 10/03/2024 8:00 AM EDT Office Visit Rheumatology [address] [place] [address] [place] [address] [place], [place] [phone] Return in about 9 months (around 10/03/2024). documented as of this encounter Visit Diagnoses Not on filedocumented in this encounter Care Teams Search Engine Optimization Specialist Relationship Specialty Start Date End Date Malcolm Cid MD PCP - General Family Medicine 01/07/15 documented as of this encounter
--- OUTSIDE RECORDS SUMMARY | 2024-08-04 13:01 | XMS_ITS | Encounter Summary ---
Author Organization [facility] Address [address] [place] [address] Care Team Providers Care Tariff Expert Name Role Phone Malcolm Cid MD Primary Care Provider [phone] Malcolm Cid MD Unavailable Wednesday, [place] AQUIN[place] Unavailable [phone] Jayne Del Valle RN Unavailable [phone] Merry Paz FOREST FIRE FIGHTERS DISPATCHER Unavailable Unavailable Reason for Visit * Reason Onset Date Comments Med Refill 09/20/2023 Encounter Details Date Type Department Care Team (Late st Contact Info) Description 09/20/2023 Refill [facility] [address] [facility] 110 [place] [address] Marina Proctor, PA [address] [place] [address] [place] [address] Rheumatoid arthritis involving multiple sites with positive rheumatoid factor ([facility]) Social History Tobacco Use Types Packs/Day [...] care, and heating? Not very hard 09/14/2022 [facility] [place] of Occupat ional Health - Occupational Stress [...] EDT Office Visit [facility] 112 [facility] [place] 110 [place] [address] Marina Proctor PA [address] [place] [address] [place] [address] documented as of this encounter Visit Diagnoses Diagnosis Rheumatoid arthritis involving multiple sites with positive rheumatoid factor ([facility]) documented in this encounter Care Teams Tariff Expert Relationship Specialty Start Date End Date Malcolm Cid MD [address] [place] [address] [place] [address] PCP - General Family Medicine 07/29/22 Malcolm Cid MD [address] [place] [address] [place] [address] PCP - [facility] 05/30/22Wednesday, BREE Marquez [address] [place] [address] Licensed Practical Nurse Family Medicine 06/04/23 Jayne Del Valle, RN Licensed Practical Nurse Family Medicine 04/07/2404/30 Merry Paz LPN 05/19/24 documented as of this encounter
--- OUTSIDE RECORDS SUMMARY | 2024-08-04 13:01 | XMS_ITS | Encounter Summary ---
Author Organization [facility] Address [address] [place] [address] Care Team Providers Care Patient Account Liaison Name Role Phone Malcolm Cid MD Primary Care Provider [phone] Malcolm Cid MD Unavailable Wednesday, [place] AQUINON Unavailable [phone] Jayne Del Valle RN Unavailable [phone] Merry Paz MIDDLEWARE ARCHITECT Unavailable Unavailable Encounter Details Date Type Department Care Team (Late st Contact Info) Description 09/06/2023 Abstract [facility] [address] [facility] 110 [place] [address] Malcolm Cid MD 112 [facility] 110 [place], [place] [address] Social History Tobacco Use Types Packs/Day Years [...] 08/07/2024 11:00 AM EDT Office Visit [facility] [address] [facility] 110 [place] [address] Marina Proctor PA [address] [place] [address] documented as of this encounter Visit Diagnoses Not on filedocumented in this encounter Care Teams Patient Account Liaison Relationship Specialty Start Date End Date Malcolm Cid MD [address] [place] [address] [place] [address] PCP - General Family Medicine 07/29/22 Malcolm Cid MD [address] [place] [address] PCP - [facility] 05/30/22Wednesday, BREE Marquez [address] [place] [address] Licensed Practical Nurse Family Medicine 06/04/23 Jayne Del Valle, DELMIS Licensed Practical Nurse Family Medicine 04/07/2404/30 Merry Paz LPN 05/19/24 documented as of this encounter
--- OUTSIDE RECORDS SUMMARY | 2024-08-04 13:01 | XMS_ITS | Encounter Summary ---
Author Organization [facility] Address [address] [place] [address] Care Team Providers Care Email Campaign Manager Name Role Phone Malcolm Cid MD Primary Care Provider [phone] Source Comments In the event this information is protected by the Federal Confidentiality of Alcohol and Drug AbusePatient Records regulations: The Federal rules restrict any use of the information to criminally investigate or prosecute any alcohol or drug abuse patient.[facility] Encounter Details Date Type Department Care Team (Late st Contact Info) Description 10/28/2018 Patient Msg Rheumatology [address] [place], [place] [id number] Provider, Ccf Dr Castro message Social History [...] 10/03/2024 8:00 AM EDT Office Visit Rheumatology [address] [place] [address] [place] [address] [place] [address] Return in about 9 months (around 10/03/2024). documented as of this encounter Visit Diagnoses Not on filedocumented in this encounter Care Teams Email Campaign Manager Relationship Specialty Start Date End Date Malcolm Cid MD PCP - General Family Medicine 01/07/15 documented as of this encounter
--- OUTSIDE RECORDS SUMMARY | 2024-08-04 13:01 | XMS_ITS | Encounter Summary ---
Author Organization [facility] Address [address] [place] [address] Care Team Providers Care Molecular Geneticist Name Role Phone Malcolm Cid MD Primary Care Provider [phone] Source Comments In the event this information is protected by the Federal Confidentiality of Alcohol and Drug AbusePatient Records regulations: The Federal rules restrict any use of the information to criminally investigate or prosecute any alcohol or drug abuse patient.[facility] Encounter Details Date Type Department Care Team (Late st Contact Info) Description 05/09/2020 Patient Msg Rheumatology [address] [place], [place] [phone] Provider, Ccf Results Social History Tobacco Use Types Packs/Day Years Used Date Smoking Tobacco: Never Smokeless Tobacco: Current Chew PHQ-2 Answer Date Recorded PHQ-2 score 4 03/31/2020 Area Deprivation Index Answer Date Adis rded National Score (1-100), lower number is lower ri sk Not on file 02/05/2020 State Score (1-10), lower number is lower risk N ot on file 02/05/2020 Data from: https://www.neighborhoodatlas.medicine.[facility].edu/. Last address used for calculation Not on [...] 10/03/2024 8:00 AM EDT Office Visit Rheumatology [address] [place] [address] [place] [address] [place] [address] Return in about 9 months (around 10/03/2024). documented as of this encounter Visit Diagnoses Not on filedocumented in this encounter Care Teams Molecular Geneticist Relationship Specialty Start Date End Date Malcolm Cid MD PCP - General Family Medicine 01/07/15 documented as of this encounter
--- OUTSIDE RECORDS SUMMARY | 2024-08-04 13:01 | XMS_ITS | Encounter Summary ---
Author Organization [facility] Address [address] [place] [address] Care Team Providers Care Compliance Quality Performance Analyst Name Role Phone Malcolm Cid MD Primary Care Provider [phone] Source Comments In the event this information is protected by the Federal Confidentiality of Alcohol and Drug AbusePatient Records regulations: The Federal rules restrict any use of the information to criminally investigate or prosecute any alcohol or drug abuse patient.[facility] Encounter Details Date Type Department Care Team (Late st Contact Info) Description 12/28/2018 Patient Msg Rheumatology [address] [place] [address] Provider, Ccf Update on insurance [...] 10/03/2024 8:00 AM EDT Office Visit Rheumatology [address] [place] [address] [place] [address] [place] [address] Return in about 9 months (around 10/03/2024). documented as of this encounter Visit Diagnoses Not on filedocumented in this encounter Care Teams Compliance Quality Performance Analyst Relationship Specialty Start Date End Date Malcolm Cid MD PCP - General Family Medicine 01/07/15 documented as of this encounter
--- OUTSIDE RECORDS SUMMARY | 2024-08-04 13:01 | XMS_ITS | Encounter Summary ---
Author Organization [facility] Address [address] [place] [address] Care Team Providers Care Ground Source Heat Pump Technician Name Role Phone Malcolm Cid MD Primary Care Provider [phone] Malcolm Cid MD Unavailable Wednesday, [place] AQUIN[place] Unavailable [phone] Jayne Del Valle RN Unavailable Merry Paz BANANA ROOM CUTTER Unavailable Unavailable Encounter Details Date Type Department Care Team (Late st Contact Info) Description 03/09/2023 Abstract [facility] [address] [facility] 110 [place] [address] Malcolm Cid MD 112 [facility] 110 [place], [place] [address] Social History Tobacco Use Types Packs/Day Years [...] care, and heating? Not very hard 09/14/2022 [facility] of Occupat ional Health - [...] 08/07/2024 11:00 AM EDT Office Visit [facility] [address] [facility] 110 [place] [address] Marina Proctor PA [address] [facility] 110 [place] [address] documented as of this encounter Visit Diagnoses Not on filedocumented in this encounter Care Teams Ground Source Heat Pump Technician Relationship Specialty Start Date End Date Malcolm Cid MD [address] [facility] 110 [place] [address] PCP - General Family Medicine 07/29/22 Malcolm Cid MD [address] [address] [place] [address] PCP - [facility] 05/30/22Wednesday, BREE Marquez [address] [place] [address] Licensed Practical Nurse Family Medicine 06/04/23 Jayne Del Valle, DELMIS Licensed Practical Nurse Family Medicine 04/07/2404/30 Merry Paz LPN 05/19/24 documented as of this encounter
--- OUTSIDE RECORDS SUMMARY | 2024-08-04 13:01 | XMS_ITS | Encounter Summary ---
Author Organization [facility] Address [address] [place] [address] Care Team Providers Care Fence Laborer Name Role Phone Malcolm Cid MD Primary Care Provider [phone] Source Comments In the event this information is protected by the Federal Confidentiality of Alcohol and Drug AbusePatient Records regulations: The Federal rules restrict any use of the information to criminally investigate or prosecute any alcohol or drug abuse patient.[facility] Encounter Details Date Type Department Care Team (Late st Contact Info) Description 12/27/2018 Patient Msg Rheumatology [address] [place], [place] [phone] Provider, Issa RE: Update from Dr Castro [...] 10/03/2024 8:00 AM EDT Office Visit Rheumatology [address] [place], [place] [phone] [place] [address] [place] [address] Return in about 9 months (around 10/03/2024). documented as of this encounter Visit Diagnoses Not on filedocumented in this encounter Care Teams Fence Laborer Relationship Specialty Start Date End Date Malcolm Cid MD PCP - General Family Medicine 01/07/15 documented as of this encounter
--- OUTSIDE RECORDS SUMMARY | 2024-08-04 13:01 | XMS_ITS | Encounter Summary ---
Author Organization [facility] Address [address] [place] [address] Care Team Providers Care Cabin Supervisor Name Role Phone Malcolm Cid MD Primary Care Provider [phone] Malcolm Cid MD Unavailable Wednesday, [place] AQUINON Unavailable [phone] Jayne Del Valle RN Unavailable Merry Paz CONCRETE MIXER OPERATOR Unavailable Unavailable Encounter Details Date Type Department Care Team (Late st Contact Info) Description 02/23/2023 Abstract [facility] [address] [facility] 110 [place] [address] Malcolm Cid MD 112 [facility] 110 [place], [place] [phone] Social History Tobacco Use Types Packs/Day Years [...] and heating? Not very hard 09/14/2022 [facility] of Occupat ional Health - Occupational [...] [facility] [address] [facility] 110 [place] [address] Marina Proctor PA [address] [facility] 110 [place] [address] documented as of this encounter Visit Diagnoses Not on filedocumented in this encounter Care Teams Cabin Supervisor Relationship Specialty Start Date End Date Malcolm Cid MD [address] [facility] 110 [place] [address] PCP - General Family Medicine 07/29/22 Malcolm Cid MD [address] [place] [address] PCP - [facility] 05/30/22Wednesday, BREE Marquez [address] [place] [address] Licensed Practical Nurse Family Medicine 06/04/23 Jayne Del Valle, DELMIS Licensed Practical Nurse Family Medicine 04/07/2404/30 Merry Paz LPN 05/19/24 documented as of this encounter
--- OUTSIDE RECORDS SUMMARY | 2024-08-04 13:01 | XMS_ITS | Encounter Summary ---
Author Organization [facility] Address [address] [place] [address] Care Team Providers Care Mold Making Supervisor Name Role Phone Malcolm Cid MD Primary Care Provider [phone] Malcolm Cid MD Unavailable Wednesday, [place] AQUIN[place] Unavailable [phone] Jayne Del Valle RN Unavailable Merry Paz PLASTIC SURGEON Unavailable Unavailable Reason for Visit * Reason Onset Date Comments Med Refill 09/15/2023 Encounter Details Date Type Department Care Team (Late st Contact Info) Description 09/15/2023 Refill [facility] [address] [facility] 110 [place] [address] Malcolm Cid MD [address] [place], [place] [phone] Rheumatoid arthritis involving multiple sites with positive rheumatoid factor ([facility]) Social History Tobacco Use Types Packs/Day [...] care, and heating? Not very hard 09/14/2022 [facility] [place] of Occupat ional Health - Occupational Stress [...] [address] [place] [address] [place] [address] Marina Proctor, PA [address] [place] [place] [address] documented as of this encounter Visit Diagnoses Diagnosis Rheumatoid arthritis involving multiple sites with positive rheumatoid factor ([facility]) documented in this encounter Care Teams Mold Making Supervisor Relationship Specialty Start Date End Date Malcolm Cid MD [address] [address] [place] [address] PCP - General Family Medicine 07/29/22 Malcolm Cid MD [address] [place] [address] PCP - [facility] 05/30/22Wednesday, BREE Marquez [address] [place] [address] Licensed Practical Nurse Family Medicine 06/04/23 Jayne Del Valle, RN Licensed Practical Nurse Family Medicine 04/07/2404/30 Merry Paz LPN 05/19/24 documented as of this encounter
--- OUTSIDE RECORDS SUMMARY | 2024-08-04 13:02 | XMS_ITS | Encounter Summary ---
Author Organization [facility] Address [address] [place] [address] Care Team Providers Care Escrow Secretary Name Role Phone Malcolm Cid MD Primary Care Provider [phone] Malcolm Cid MD Unavailable Wednesday, [place] QAUINON Unavailable [phone] Jayne Del Valle RN Unavailable Merry Paz MANAGING CONSULTANT CLINICAL PROFESSOR Unavailable Unavailable Encounter Details Date Type Department Care Team (Late st Contact Info) Description 05/12/2023 Abstract [facility] [address] [facility] 110 [place] [address] Malcolm Cid MD 112 [facility] 110 [place], [place] [phone] Social History Tobacco Use Types Packs/Day Years [...] Visit [facility] [address] [facility] 110 [place] [address] Marina Proctor PA [address] [place] [address] documented as of this encounter Visit Diagnoses Not on filedocumented in this encounter Care Teams Escrow Secretary Relationship Specialty Start Date End Date Malcolm Cid MD [address] [place] [address] PCP - General Family Medicine 07/29/22 Malcolm Cid MD [address] [place] [address] PCP - [facility] 05/30/22Wednesday, BREE Marquez [address] [place] [address] Licensed Practical Nurse Family Medicine 06/04/23 Jayne Del Valle, DELMIS Licensed Practical Nurse Family Medicine 04/07/2404/30 Merry Paz LPN 05/19/24 documented as of this encounter
--- OUTSIDE RECORDS SUMMARY | 2024-08-04 13:02 | XMS_ITS | Encounter Summary ---
Author Organization [facility] Address [address] [place] [address] Care Team Providers Care Metallurgical Engineering Teacher Name Role Phone Malcolm Cid MD Primary Care Provider [phone] Source Comments In the event this information is protected by the Federal Confidentiality of Alcohol and Drug AbusePatient Records regulations: The Federal rules restrict any use of the information to criminally investigate or prosecute any alcohol or drug abuse patient.[facility] Encounter Details Date Type Department Care Team (Late st Contact Info) Description 08/19/2020 Patient Msg Rheumatology [address] [place], [place] [id number] [place] [address] [place] [address] September lab reminder Social History Tobacco Use Types Packs/Day Years Used Date Smoking Tobacco: Never Smokeless Tobacco: Current Chew PHQ-2 Answer Date Recorded PHQ-2 score 3 08/19/2020 Area Deprivation Index Answer Date Adis rded National Score (1-100), lower number is lower ri sk Not on file 02/05/2020 State Score (1-10), lower number is lower risk N ot on file 02/05/2020 Data from: https://www.neighborhoodatlas.[facility]/. Last address used for calculation [...] 10/03/2024 8:00 AM EDT Office Visit Rheumatology [address] [place], [place] [id number] [place] [address] [place], [place] 13556[address] Return in about 9 months (around 10/03/2024). documented as of this encounter Visit Diagnoses Not on filedocumented in this encounter Care Teams Metallurgical Engineering Teacher Relationship Specialty Start Date End Date Malcolm Cid MD PCP - General Family Medicine 01/07/15 documented as of this encounter
--- OUTSIDE RECORDS SUMMARY | 2024-08-04 13:02 | XMS_ITS | Encounter Summary ---
Author Organization [facility] Address [address] [place] [address] Care Team Providers Care Victim Witness Administrator Name Role Phone Malcolm Cid MD Primary Care Provider [phone] Source Comments In the event this information is protected by the Federal Confidentiality of Alcohol and Drug AbusePatient Records regulations: The Federal rules restrict any use of the information to criminally investigate or prosecute any alcohol or drug abuse patient.[facility] Encounter Details Date Type Department Care Team (Late st Contact Info) Description 03/08/2023 Patient Msg Rheumatology [address] [place], [place] [id number] [place] [address] [place], [place] [id number] Previsit lab reminder Social History Tobacco Use Types Packs/Day Years Used Date Smoking Tobacco: Never Smokeless Tobacco: Current Chew PHQ-2 Answer Date Recorded PHQ-2 score 4 08/13/2022 Area Deprivation Index Answer Date Adis rded National Score (1-100), lower number is lower ri sk 87 08/14/2022 State Score (1-10), lower number is lower risk 8 08/14/2022 Data from: https://www.neighborhoodatlas.[facility]/. Last address used for calculation Thong [...] 10/03/2024 8:00 AM EDT Office Visit Rheumatology [address] [place], [place] 3974111 [place] [address] [place], [place] [id number] Return in about 9 months (around 10/03/2024). documented as of this encounter Visit Diagnoses Not on filedocumented in this encounter Care Teams Victim Witness Administrator Relationship Specialty Start Date End Date Malcolm Cid MD PCP - General Family Medicine 01/07/15 documented as of this encounter
--- OUTSIDE RECORDS SUMMARY | 2024-08-04 13:02 | XMS_ITS | Encounter Summary ---
Author Organization [facility] Address [address] [place] [address] Care Team Providers Care Gang Sawyer Name Role Phone Malcolm Cid MD Primary Care Provider [phone] Malcolm Cid MD Unavailable Merry Paz LPN [...] week 10/10/2023 How often do you attend [facility] or [facility]? More than 4 times [...] Recorded Patient Health Questionnaire-2 Score 0 05/18/2024 [facility] - [...] EDT Office Visit [facility] JASMIN ALLRED 112 [facility] 110 [place] [address] Marina Proctor PA 112 [facility] 110 [place] [address] Pending Results Name Type Priority Associated Diagnoses [...] on filedocumented in this encounter Care Teams Gang Sawyer Relationship Specialty Start Date End Date Malcolm Cid MD 112 [facility] 110 [place] [address] PCP - General Family Medicine 07/29/22 Malcolm Cid MD [address] [facility] 110 [place] [address] PCP - [facility] 05/30/22 Merry Paz LPN 05/19/24 documented as of this encounter
--- OUTSIDE RECORDS SUMMARY | 2024-08-04 13:02 | XMS_ITS | Encounter Summary ---
Author Organization [facility] Address [address] [place] [address] Care Team Providers Care Curator Of Manuscripts Name Role Phone Malcolm Cid MD Primary Care Provider [phone] Source Comments In the event this information is protected by the Federal Confidentiality of Alcohol and Drug AbusePatient Records regulations: The Federal rules restrict any use of the information to criminally investigate or prosecute any alcohol or drug abuse patient.[facility] Encounter Details Date Type Department Care Team (Late st Contact Info) Description 10/12/2022 Patient Msg Rheumatology [address] [place], [place] [phone] Provider, Ccf Appoinment Cancellation Social History Tobacco Use Types Packs/Day Years Used Date Smoking Tobacco: Never Smokeless Tobacco: Current Chew PHQ-2 Answer Date Recorded PHQ-2 score 4 08/13/2022 Area Deprivation Index Answer Date Adis rded National Score (1-100), lower number is lower ri sk 87 08/14/2022 State Score (1-10), lower number is lower risk 8 08/14/2022 Data from: https://www.neighborhoodatlas.medicine.[facility].edu/. Last address used for calculation [address] [facility] 08/14/2022 Sex and Gender Information Value Date [...] 10/03/2024 8:00 AM EDT Office Visit Rheumatology [address] [place] [address] [place] [address] [place] [address] Return in about 9 months (around 10/03/2024). documented as of this encounter Visit Diagnoses Not on filedocumented in this encounter Care Teams Curator Of Manuscripts Relationship Specialty Start Date End Date Malcolm Cid MD PCP - General Family Medicine 01/07/15 documented as of this encounter
--- OUTSIDE RECORDS SUMMARY | 2024-08-04 13:02 | XMS_ITS | Encounter Summary ---
Author Organization [facility] Address [address] [place] [address] Care Team Providers Care Family Practice Physician Name Role Phone Malcolm Cid MD Primary Care Provider [phone] Malcolm Cid MD Unavailable Merry Paz LPN Unavailable Unavailable Encounter Details Date Type Department Care Team (Late st Contact Info) Description 08/01/2024 Patient Outreach [facility] [address] [place] [address] Jayne Del Valle, DELMIS Social History Tobacco [...] Questionnaire-2 Score 0 05/18/2024 [facility] - [...] Valle RN Hospital Information ED, Hospital or Jail Facility Discharge? Hospital Patient has been contacted within two business days of discharge Yes Diagnosis intractable pain, polyarthralgia, RA flare, acute hypernatremia, hyperglycemia-drug induced Discharge Date 07/31/24 Discharged To: Home Setting Discharge Hospital [facility] Engagement Admission Date 07/29/24 Medications Discharge medications [...] Description 08/07/2024 11:00 AM EDT Office Visit [facility] [address] [facility] 110 [place] [address] Marina Proctor PA 112 [facility] 110 [place] [address] documented as of this encounter Visit Diagnoses Diagnosis 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)- Primary Essential hypertension (CMS/HCC) Unspecified essential hypertension documented in this encounter Care Teams Family Practice Physician Relationship Specialty Start Date End Date Malcolm Cid MD 112 [facility] 110 [place], [place] [id number] PCP - General Family Medicine 07/29/22 Malcolm Cid MD 112 [facility] 110 [place], [place] [phone] PCP - [facility] 05/30/22 Merry Paz LPN 05/19/24 documented as of this encounter
--- OUTSIDE RECORDS SUMMARY | 2024-08-04 13:02 | XMS_ITS | Encounter Summary ---
Author Organization [facility] Address [address] [place] [address] Care Team Providers Care Digital Performance Analyst Name Role Phone Malcolm Cid MD Primary Care Provider [phone] Malcolm Cid MD Unavailable Wednesday, Alma AQUINON Unavailable [phone] Jayne Del Valle RN Unavailable Merry Paz LEATHER GOODS II ASSEMBLER Unavailable Unavailable Encounter Details Date Type Department Care Team (Late st Contact Info) Description 04/01/2023 Abstract [facility] [address] [facility] 110 [place] [address] Malcolm Cid MD 112 [facility] 110 [place], [place] [address] Social History Tobacco Use Types Packs/Day Years [...] 08/07/2024 11:00 AM EDT Office Visit [facility] [address] [facility] 110 [place] [address] Marina Proctor PA [address] [facility] 110 [place] [address] documented as of this encounter Visit Diagnoses Not on filedocumented in this encounter Care Teams Digital Performance Analyst Relationship Specialty Start Date End Date Malcolm Cid MD [address] [facility] 110 [place] [address] PCP - General Family Medicine 07/29/22 Malcolm Cid MD [address] [place] [address] [place] [address] PCP - [facility] 05/30/22Wednesday, BREE Marquez [address] [place] [address] Licensed Practical Nurse Family Medicine 06/04/23 Jayne Del Valle, DELMIS Licensed Practical Nurse Family Medicine 04/07/2404/30 Merry Paz LPN 05/19/24 documented as of this encounter
--- OUTSIDE RECORDS SUMMARY | 2024-08-04 13:02 | XMS_ITS | Encounter Summary ---
Author Organization [facility] Address [address] [place] [address] Care Team Providers Care Pill Machine Operator Name Role Phone Malcolm Cid MD Primary Care Provider [phone] Source Comments In the event this information is protected by the Federal Confidentiality of Alcohol and Drug AbusePatient Records regulations: The Federal rules restrict any use of the information to criminally investigate or prosecute any alcohol or drug abuse patient.[facility] Encounter Details Date Type Department Care Team (Late st Contact Info) Description 02/04/2024 Get Medical Advice Rheumatology [address] [place], [place] [phone] [place] [address] [place] [address] Flare up Social History Tobacco Use Types Packs/Day Years Used Date Smoking Tobacco: Never Smokeless Tobacco: Current Chew PHQ-2 Answer Date Recorded PHQ-2 score 1 01/14/2024 Area Deprivation Index Answer Date Adis rded National Score (1-100), lower number is lower ri sk 87 08/14/2022 State Score (1-10), lower number is lower risk 8 08/14/2022 Data from: https://www.neighborhoodatlas.medicine.[facility]/. Last address used for calculation Thong [...] 10/03/2024 8:00 AM EDT Office Visit Rheumatology [address] [place] [address] [place] [address] [place] [address] Return in about 9 months (around 10/03/2024). documented as of this encounter Visit Diagnoses Not on filedocumented in this encounter Care Teams Pill Machine Operator Relationship Specialty Start Date End Date Malcolm Cid MD PCP - General Family Medicine 01/07/15 documented as of this encounter
--- OUTSIDE RECORDS SUMMARY | 2024-08-04 13:02 | XMS_ITS | Encounter Summary ---
Author Organization [facility] Address [address] [place] [address] Care Team Providers Care Driller Portable Name Role Phone Malcolm Cid MD Primary Care Provider [phone] Malcolm Cid MD Unavailable Merry Paz LPN [...] week 10/10/2023 How often do you attend [facility] or [facility] services? More than 4 times [...] Recorded Patient Health Questionnaire-2 Score 0 05/18/2024 [facility] [...] any time in the past 12 m [facility], were you homeless or living in [...] EDT Office Visit [facility] JASMIN ALLRED 112 [facility] 110 [place] [address] Marina Proctor PA 112 [facility] 110 [place] [address] documented as of this encounter Procedures Procedure Name Priority Date/Time Associated Diagnosis Comments SALMONELLA/SHIGELLA SCREEN Routine 07/30/2024 3:45 PM EDT E COLI SHIGA TOXIN EIA Routine 07/30/2024 3:45 PM EDT documented in this encounter Results * E COLI SHIGA TOXIN EIA (07/30/2024 3:45 PM EDT) E COLI SHIGA TOXIN EIA E coli Shiga Toxin EIA WILL FOLLOW [facility] E COLI SHIGA TOXIN EIA Negative [facility] E COLI SHIGA TOXIN EIA Performed at: [facility] E COLI SHIGA TOXIN EIA [address] [place], [place] [id number] [facility] E COLI SHIGA TOXIN EIA Software Development Test Engineer: Surinder Torres PhD, Phone: [phone] [facility] 07/30/2024 3:45 PM EDT 07/30/2024 3:48 PM EDT Narrative [facility] - 08/03/2024 1:10 PM EDT us Generic External Data Provider LAB BLOOD ORDERAB LES Final Result Performing Organization Address City/[facility]/ZIP Co de Phone Number [facility] * SALMONELLA/SHIGELLA SCREEN (07/30/2024 3:45 PM EDT) SALMONELLA/SH IGELLA SCREEN Salmonella/Natty gella Screen [facility] SALMONELLA/SH IGELLA SCREEN Specimen has been received and testing has been initiated. TB SALMONELLA/SH IGELLA SCREEN [facility] SALMONELLA/SH IGELLA SCREEN No Salmonella or Shigella recovered. [facility] 07/30/2024 3:45 PM EDT 07/30/2024 3:48 PM EDT Narrative [facility] - 08/03/2024 1:10 PM EDT us Generic External Data Provider LAB BLOOD ORDERAB LES Final Result [facility] documented in this encounter Visit Diagnoses Not on filedocumented in this encounter Care Teams Driller Portable Relationship Specialty Start Date End Date Malcolm Cid MD [address] [facility] 110 [place] [address] PCP - General Family Medicine 07/29/22 Malcolm Cid MD [address] [facility] 110 [place] [address] PCP - [facility] 05/30/22 Merry aPz LPN 05/19/24 documented as of this encounter
--- OUTSIDE RECORDS SUMMARY | 2024-08-04 13:02 | XMS_ITS | Encounter Summary ---
Author Organization [facility] Address [facility] [place] [address] Care Team Providers Care Honey Grader And Blender Name Role Phone Malcolm Cid MD Primary Care Provider [phone] Source Comments In the event this information is protected by the Federal Confidentiality of Alcohol and Drug AbusePatient Records regulations: The Federal rules restrict any use of the information to criminally investigate or prosecute any alcohol or drug abuse patient.[facility] Encounter Details Date Type Department Care Team (Late st Contact Info) Description 12/25/2020 Get Medical Advice Kidney Medicine [address] [place], [place] [address] Madonna Serrano, SMALL BOAT ENGINEER.TUBE HANDLER [address] [place] [address] RE: Visit Follow Up Question [...] N ot on file 02/05/2020 Data from: https://www.neighborhoodatlas.[facility]/. Last address used for calculation [...] 04/26/2017 6:15 PM Oralai Hurtado RN * Do you have difficulty [...] 10/03/2024 8:00 AM EDT Office Visit Rheumatology [address] [place], [place] 824[address] [place] [address] [place], [place] [phone] Return in about 9 months (around 10/03/2024). documented as of this encounter Visit Diagnoses Not on filedocumented in this encounter Care Teams Honey Grader And Blender Relationship Specialty Start Date End Date Malcolm Cid MD PCP - General Family Medicine 01/07/15 documented as of this encounter
--- OUTSIDE RECORDS SUMMARY | 2024-08-04 13:02 | XMS_ITS | Encounter Summary ---
Author Organization [facility] Address [address] [place] [address] Care Team Providers Care Shoe Patternmaker Name Role Phone Malcolm Cid MD Primary Care Provider [phone] Malcolm Cid MD Unavailable Wednesday, Alma AQUINON Unavailable [phone] Jayne Del Valle RN Unavailable [phone] Merry Paz LPN Unavailable Unavailable Encounter Details Date Type Department Care Team (Late st Contact Info) Description 06/15/2023 Orders Only [facility] [address] [place] [address] [place] [address] A, Unknown Practice [address] [place] [address] Social History Tobacco Use Types Packs/Day Years [...] Office Visit [facility] 112 [facility] 110 [place] [address] Marina Proctor PA [address] [place] [facility] 110 [place] [address] documented as of this encounter Procedures Procedure [...] filedocumented in this encounter Care Teams Shoe Patternmaker Relationship Specialty Start Date End Date Malcolm Cid MD [address] [facility] [address] [place] [address] PCP - General Family Medicine 07/29/22 Malcolm Cid MD [address] [facility] [address] [place] [address] PCP - [facility] 05/30/22Wednesday, BREE Marquez [address] [place] [address] Licensed Practical Nurse Family Medicine 06/04/23 Jayne Del Valle, RN Licensed Practical Nurse Family Medicine 04/07/2404/30 Merry Paz LPN 05/19/24 documented as of this encounter
--- OUTSIDE RECORDS SUMMARY | 2024-08-04 13:02 | XMS_ITS | Encounter Summary ---
Author Organization [facility] Address [address] [place] [address] Care Team Providers Care Motion Picture Scene Builder Name Role Phone Malcolm Cid MD Primary Care Provider [phone] Source Comments In the event this information is protected by the Federal Confidentiality of Alcohol and Drug AbusePatient Records regulations: The Federal rules restrict any use of the information to criminally investigate or prosecute any alcohol or drug abuse patient.[facility] Encounter Details Date Type Department Care Team (Late st Contact Info) Description 09/08/2023 Patient Msg Pediatrics [place] [address] [place] [address] Provider, Ccf Rheumatology Appointment Cancellation Social History Tobacco Use Types Packs/Day Years Used Date Smoking Tobacco: Never Smokeless Tobacco: Current Chew PHQ-2 Answer Date Recorded PHQ-2 score 4 08/13/2022 Area Deprivation Index Answer Date Adis rded National Score (1-100), lower number is lower ri sk 87 08/14/2022 State Score (1-10), lower number is lower risk 8 08/14/2022 Data from: https://www.neighborhoodatlas.medicine.[facility].edu/. Last address used for calculation [address] [...] 10/03/2024 8:00 AM EDT Office Visit Rheumatology [address] [place] [address] [place] [address] [place] [address] Return in about 9 months (around 10/03/2024). documented as of this encounter Visit Diagnoses Not on filedocumented in this encounter Care Teams Motion Picture Scene Builder Relationship Specialty Start Date End Date Malcolm Cid MD PCP - General Family Medicine 01/07/15 documented as of this encounter
--- OUTSIDE RECORDS SUMMARY | 2024-08-04 13:02 | XMS_ITS | Encounter Summary ---
Author Organization [facility] Address [address] [place] [address] Care Team Providers Care Middle School Math Teacher Name Role Phone Malcolm Cid MD Primary Care Provider [phone] Malcolm Cid MD Unavailable Wednesday, Alma AQUINON Unavailable [phone] Jayne Del Valle RN Unavailable Merry Paz IT APPLICATION ADMINISTRATOR Unavailable Unavailable Encounter Details Date Type Department Care Team (Late st Contact Info) Description 03/25/2023 Abstract [facility] [address] [facility] 110 [place] [address] Malcolm Cid MD 112 [facility] 110 [place], [place] [address] Social History Tobacco Use Types Packs/Day Years [...] 08/07/2024 11:00 AM EDT Office Visit [facility] [address] [facility] 110 [place] [address] Marina Proctor PA [address] [facility] 110 [place] [address] documented as of this encounter Visit Diagnoses Not on filedocumented in this encounter Care Teams Middle School Math Teacher Relationship Specialty Start Date End Date Malcolm Cid MD [address] [facility] 110 [place] [address] PCP - General Family Medicine 07/29/22 Malcolm Cid MD [address] [facility] [address] [place] [address] PCP - [facility] 05/30/22Wednesday, BREE Marquez [address] [place] [address] Licensed Practical Nurse Family Medicine 06/04/23 Jayne Del Valle, DELMIS Licensed Practical Nurse Family Medicine 04/07/2404/30 Merry Paz LPN 05/19/24 documented as of this encounter
--- OUTSIDE RECORDS SUMMARY | 2024-08-04 13:02 | XMS_ITS | Encounter Summary ---
Author Organization [facility] Address [address] [place] [address] Care Team Providers Care Associate Director Career Services Name Role Phone Malcolm Cid MD Primary Care Provider [phone] Malcolm Cid MD Unavailable Wednesday, Alma AQUINON Unavailable [phone] Jayne Del Valle RN Unavailable [phone] Merry Paz FLIGHT TECHNICIAN Unavailable Unavailable Encounter Details Date Type Department Care Team (Late st Contact Info) Description 06/08/2023 Orders Only [facility] [address] [place] [address] [place] [address] A, Unknown Practice [address] [place] [address] Social History Tobacco Use Types Packs/Day Years [...] 11:00 AM EDT Office Visit [facility] [address] [facility] 110 [place] [address] Marina Proctor PA [address] [facility] 110 [place] [address] documented as of this encounter Procedures Procedure Name Priority Date/Time Associated Diagnosis Comments ELECTROCARDIOGRAM REPORT Routine 024 11:18 AM EDT documented in this encounter Results * Electrocardiogram Report (06/03/2023 11:18 AM EDT) us Unknown Practice A IN CLINIC/BEDSIDE ORDERABLES Final Result documented in this encounter Visit Diagnoses Not on filedocumented in this encounter Care Teams Associate Director Career Services Relationship Specialty Start Date End Date Malcolm Cid MD [address] [facility] [address] [place] [address] PCP - General Family Medicine 07/29/22 Malcolm Cid MD [address] [facility] [address] [place] [address] PCP - [facility] 05/30/22WednesdayAlma LPN [address] [place] [address] Licensed Practical Nurse Family Medicine 06/04/23 Jayne Del Valle, RN Licensed Practical Nurse Family Medicine 04/07/2404/30 Merry Paz LPN 05/19/24 documented as of this encounter
--- OUTSIDE RECORDS SUMMARY | 2024-08-04 13:02 | XMS_ITS | Encounter Summary ---
Author Organization [facility] Address [facility] [place] [address] Care Team Providers Care Wind Turbine Mechanic Name Role Phone Malcolm Cid MD Primary Care Provider [phone] Source Comments In the event this information is protected by the Federal Confidentiality of Alcohol and Drug AbusePatient Records regulations: The Federal rules restrict any use of the information to criminally investigate or prosecute any alcohol or drug abuse patient.[facility] Encounter Details Date Type Department Care Team (Late st Contact Info) Description 11/29/2020 Get Medical Advice Kidney Medicine [address] [place], [place] [id number] Madonna Serrano, EMBROIDERY PATTERNMAKER.PRACTICE LEAD [address] [place] [address] RE: Test Result Question Social [...] on file 02/05/2020 Data from: https://www.neighborhoodatlas.[facility]/. Last address used for calculation Not [...] 10/03/2024 8:00 AM EDT Office Visit Rheumatology [address] [place], [place] [id number] [place] [address] [place], [place] [id number] Return in about 9 months (around 10/03/2024). documented as of this encounter Visit Diagnoses Not on filedocumented in this encounter Care Teams Wind Turbine Mechanic Relationship Specialty Start Date End Date Malcolm Cid MD PCP - General Family Medicine 01/07/15 documented as of this encounter
--- OUTSIDE RECORDS SUMMARY | 2024-08-04 13:02 | XMS_ITS | Encounter Summary ---
Author Organization [facility] Address [address] [place] [address] Care Team Providers Care Restaurant General Manager Name Role Phone Malcolm Cid MD Primary Care Provider [phone]- [phone] Source Comments In the event this information is protected by the Federal Confidentiality of Alcohol and Drug AbusePatient Records regulations: The Federal rules restrict any use of the information to criminally investigate or prosecute any alcohol or drug abuse patient.[facility] Encounter Details Date Type Department Care Team (Late st Contact Info) Description 06/18/2020 Patient Msg Kidney Medicine [address] [place], [place] [id number] Marito Velasquez MD [address] [place] [address] results Social History Tobacco Use Types Packs/Day Years Used Date Smoking Tobacco: Never Smokeless Tobacco: Current Chew PHQ-2 Answer Date Recorded PHQ-2 score 4 03/31/2020 Area Deprivation Index Answer Date Adis rded National Score (1-100), lower number is lower ri sk Not on file 02/05/2020 State Score (1-10), lower number is lower risk N ot on file 02/05/2020 Data from: https://www.neighborhoodatlas.medicine.[facility]/. Last address used for calculation Not [...] 10/03/2024 8:00 AM EDT Office Visit Rheumatology [address] [place], [place] [id number] [place] [address] [place], [place] [phone] Return in about 9 months (around 10/03/2024). documented as of this encounter Visit Diagnoses Not on filedocumented in this encounter Care Teams Restaurant General Manager Relationship Specialty Start Date End Date Malcolm Cid MD PCP - General Family Medicine 01/07/15 documented as of this encounter
--- OUTSIDE RECORDS SUMMARY | 2024-08-04 13:02 | XMS_ITS | Encounter Summary ---
Author Organization [facility] Address [address] [place] [address] Care Team Providers Care Gin Inspector Name Role Phone Malcolm Cid MD Primary Care Provider [phone]- [phone] Source Comments In the event this information is protected by the Federal Confidentiality of Alcohol and Drug AbusePatient Records regulations: The Federal rules restrict any use of the information to criminally investigate or prosecute any alcohol or drug abuse patient.[facility] Encounter Details Date Type Department Care Team (Late st Contact Info) Description 09/20/2023 Patient [facility] HB-[address] [place] [address] Nevin Balbuena RPh At your next appointment, choose [facility] Social History Tobacco Use Types Packs/Day Years Used Date Smoking Tobacco: Never Smokeless Tobacco: Current Chew PHQ-2 Answer Date Recorded PHQ-2 score 4 08/13/2022 Area Deprivation Index Answer Date Adis rded National Score (1-100), lower number is lower ri sk 87 08/14/2022 State Score (1-10), lower number is lower risk 8 08/14/2022 Data from: https://www.neighborhoodatlas.medicine.[facility].edu/. Last address used for calculation [address] [facility] [facility] 08/14/2022 Sex and Gender Information [...] 10/03/2024 8:00 AM EDT Office Visit Rheumatology [address] [place] [address] [place] [address] [place] [address] Return in about 9 months (around 10/03/2024). documented as of this encounter Visit Diagnoses Not on filedocumented in this encounter Care Teams Gin Inspector Relationship Specialty Start Date End Date Malcolm Cid MD PCP - General Family Medicine 01/07/15 documented as of this encounter
--- OUTSIDE RECORDS SUMMARY | 2024-08-04 13:02 | XMS_ITS | Encounter Summary ---
Author Organization [facility] Address [address] [place] [address] Care Team Providers Care Tick Sewer Name Role Phone Malcolm Cid MD Primary Care Provider [phone]- [phone] Source Comments In the event this information is protected by the Federal Confidentiality of Alcohol and Drug AbusePatient Records regulations: The Federal rules restrict any use of the information to criminally investigate or prosecute any alcohol or drug abuse patient.[facility] Encounter Details Date Type Department Care Team (Late st Contact Info) Description 09/09/2022 Get Medical Advice Rheumatology [address] [place], [place] [phone] [place] [address] [place] [address] Return to work form. Social History Tobacco Use Types Packs/Day Years Used Date Smoking Tobacco: Never Smokeless Tobacco: Current Chew PHQ-2 Answer Date Recorded PHQ-2 score 4 08/13/2022 Area Deprivation Index Answer Date Adis rded National Score (1-100), lower number is lower ri sk 87 08/14/2022 State Score (1-10), lower number is lower risk 8 08/14/2022 Data from: https://www.[facility] systematlas.[facility]/. Last address used for calculation [...] 10/03/2024 8:00 AM EDT Office Visit Rheumatology [address] [place], [place] 683[address] [place] [address] [place], [place] [phone] Return in about 9 months (around 10/03/2024). documented as of this encounter Visit Diagnoses Not on filedocumented in this encounter Care Teams Tick Sewer Relationship Specialty Start Date End Date Malcolm Cid MD PCP - General Family Medicine 01/07/15 documented as of this encounter
--- OUTSIDE RECORDS SUMMARY | 2024-08-04 13:02 | XMS_ITS | Encounter Summary ---
Author Organization [facility] Address [address] [place] [address] Care Team Providers Care Basic Sciences Professor Name Role Phone Malcolm Cid MD Primary Care Provider [phone]- [phone] Source Comments In the event this information is protected by the Federal Confidentiality of Alcohol and Drug AbusePatient Records regulations: The Federal rules restrict any use of the information to criminally investigate or prosecute any alcohol or drug abuse patient.[facility] Encounter Details Date Type Department Care Team (Late st Contact Info) Description 01/04/2024 Patient Msg Rheumatology [address] [place], [place] 464[address] [place] [address] [place] [address] Previsit lab reminder Social History Tobacco Use Types Packs/Day Years Used Date Smoking Tobacco: Never Smokeless Tobacco: Current Chew PHQ-2 Answer Date Recorded PHQ-2 score 4 08/13/2022 Area Deprivation Index Answer Date Adis rded National Score (1-100), lower number is lower ri sk 87 08/14/2022 State Score (1-10), lower number is lower risk 8 08/14/2022 Data from: https://www.neighborhoodatlas.[facility]/. Last address used for calculation [...] 10/03/2024 8:00 AM EDT Office Visit Rheumatology [address] [place], [place] 9965[address] [place] [address] [place], [place] [phone] Return in about 9 months (around 10/03/2024). documented as of this encounter Visit Diagnoses Not on filedocumented in this encounter Care Teams Basic Sciences Professor Relationship Specialty Start Date End Date Malcolm Cid MD PCP - General Family Medicine 01/07/15 documented as of this encounter
--- OUTSIDE RECORDS SUMMARY | 2024-08-04 13:02 | XMS_ITS | Encounter Summary ---
Author Organization [facility] Address [address] [place] [address] Care Team Providers Care Balance Clerk Name Role Phone Malcolm Cid MD Primary Care Provider [phone] Malcolm Cid MD Unavailable Wednesday, Alma AQUINON Unavailable [phone] Jayne Del Valle RN Unavailable Merry Paz TONE CABINET ASSEMBLER Unavailable Unavailable Encounter Details Date Type Department Care Team (Late st Contact Info) Description 06/10/2023 Orders Only [facility] [address] [place] [address] Unallocated, Noms Provider, [address] [place], [place] [id number] Social History Tobacco Use Types Packs/Day Years [...] Visit [facility] [address] [facility] [address] [place] [address] Marina Proctor PA [address] [place] [address] documented as of this encounter Visit Diagnoses Not on filedocumented in this encounter Care Teams Balance Clerk Relationship Specialty Start Date End Date Malcolm Cid MD [address] [facility] 110 [place] [address] PCP - General Family Medicine 07/29/22 Malcolm Cid MD [address] [place] [address] PCP - [facility] 05/30/22Wednesday, BREE Marquez [address] [place] [address] Licensed Practical Nurse Family Medicine 06/04/23 Jayne Del Valle, RN Licensed Practical Nurse Family Medicine 04/07/2404/30 Merry Paz LPN 05/19/24 documented as of this encounter
--- OUTSIDE RECORDS SUMMARY | 2024-08-04 13:02 | XMS_ITS | Encounter Summary ---
Author Organization [facility] Address [address] [place] [address] Care Team Providers Care Dewaterer Operator Name Role Phone Malcolm Cid MD Primary Care Provider [phone]- [phone] Source Comments In the event this information is protected by the Federal Confidentiality of Alcohol and Drug AbusePatient Records regulations: The Federal rules restrict any use of the information to criminally investigate or prosecute any alcohol or drug abuse patient.[facility] Encounter Details Date Type Department Care Team (Late st Contact Info) Description 08/19/2020 Patient Msg Rheumatology [address] [place], [place] 20[address] [place] [address] [place] [address] October lab reminder Social History Tobacco Use [...] on file 02/05/2020 Data from: https://www.neighborhoodatlas.[facility]/. Last address used for calculation Not on [...] Date Author No 04/26/2017 6:15 PM Oralia Hurtdao RN documented in this encounter Plan of Treatment Upcoming Encounters Date Type Department Care Team (Late st Contact Info) Description 10/03/2024 8:00 AM EDT Office Visit Rheumatology [address] [place], [place] 25[address] [place] [address] [place], [place] 51244[address] Return in about 9 months (around 10/03/2024). documented as of this encounter Visit Diagnoses Not on filedocumented in this encounter Care Teams Dewaterer Operator Relationship Specialty Start Date End Date Malcolm Cid MD PCP - General Family Medicine 01/07/15 documented as of this encounter
--- OUTSIDE RECORDS SUMMARY | 2024-08-04 13:02 | XMS_ITS | Encounter Summary ---
Author Organization [facility] Address [address] [place] [address] Care Team Providers Care Civil Manager Name Role Phone Malcolm Cid MD Primary Care Provider [phone] Maloclm Cid MD Unavailable Wednesday, Alma AQUINON Unavailable [phone] Jayne Del Valle RN Unavailable [phone] Merry Paz PRINT FINISHING WORKER Unavailable Unavailable Encounter Details Date Type Department Care Team (Late st Contact Info) Description 06/15/2023 Abstract [facility] [address] [facility] 110 [place] [address] Malcolm Cid MD 112 [facility] 110 [place], [place] [address] Social History Tobacco Use Types Packs/Day Years [...] 11:00 AM EDT Office Visit [facility] [address] [facility] 110 [place] [address] Marina Proctor PA [address] [place] [address] documented as of this encounter Visit Diagnoses Not on filedocumented in this encounter Care Teams Civil Manager Relationship Specialty Start Date End Date Malcolm Cid MD [address] [place] [address] PCP - General Family Medicine 07/29/22 Malcolm Cid MD [address] [place] [address] PCP - [facility] 05/30/22Wednesday, BREE Marquez [address] [place] [address] Licensed Practical Nurse Family Medicine 06/04/23 Jayne Del Valle, [place] Licensed Practical Nurse Family Medicine 04/07/2404/30 Merry Paz LPN 05/19/24 documented as of this encounter
--- OUTSIDE RECORDS SUMMARY | 2024-08-04 13:02 | XMS_ITS | Encounter Summary ---
Author Organization [facility] Address [address] [place] [address] Care Team Providers Care Surface Supervisor Name Role Phone Malcolm Cid MD Primary Care Provider [phone] Malcolm Cid MD Unavailable Merry Paz LPN Unavailable Unavailable Reason for Visit * Reason Comments Med Refill Encounter Details Date Type Department Care Team (Late st Contact Info) Description 08/01/2024 Refill [facility] [address] [facility] 110 [place] [address] Malcolm Cid MD 112 [facility] 110 [place] [address] Essential hypertension (CMS/HCC) Social History [...] Questionnaire-2 Score 0 05/18/2024 [facility] Freedom of Occupat ional Health - Occupational Stress [...] Office Visit [facility] [address] [facility] 110 [place] [address] Marina Proctor PA [address] [facility] 110 [place] [address] documented as of this encounter Visit Diagnoses Diagnosis Essential hypertension (CMS/HCC) Unspecified essential hypertension documented in this encounter Care Teams Surface Supervisor Relationship Specialty Start Date End Date Malcolm Cid MD [address] [facility] 110 [place] [address] PCP - General Family Medicine 07/29/22 Malcolm Cid MD 112 [facility] 110 [place] [address] PCP - [facility] 05/30/22 Merry Paz LPN 05/19/24 documented as of this encounter
--- OUTSIDE RECORDS SUMMARY | 2024-08-04 13:02 | XMS_ITS | Encounter Summary ---
Author Organization [facility] Address [address] [place] [address] Care Team Providers Care Pulper Name Role Phone Malcolm Cid MD Primary Care Provider [phone] Malcolm Cid MD Unavailable Wednesday, Alma AQUINON Unavailable [phone] Jayne Del Valle RN Unavailable Merry Paz ABATEMENT WORKER Unavailable Unavailable Reason for Visit * Reason Onset Date Comments Med Refill 04/13/2023 Encounter Details Date Type Department Care Team (Late st Contact Info) Description 04/13/2023 Refill [facility] [address] [facility] 110 [place] [address] Marina Proctor, PA [address] [place] [address] Rheumatoid arthritis involving multiple sites with positive [...] 09/14/2022 [facility] [place] of Occupat ional Health - Occupational Stress [...] [address] [place] [address] Marina Proctor, PA [address] [place] [address] documented as of this encounter Visit Diagnoses Diagnosis Rheumatoid arthritis involving multiple sites with positive rheumatoid factor ([facility]) Anxiety Anxiety state, unspecified documented in this encounter Care Teams Pulper Relationship Specialty Start Date End Date Malcolm Cid MD [address] [place] [address] PCP - General Family Medicine 07/29/22 Malcolm Cid MD [address] [place] [address] PCP - [facility] 05/30/22Wednesday, BREE Marquez [address] [place] [address] Licensed Practical Nurse Family Medicine 06/04/23 Jayne Del Valle, RN Licensed Practical Nurse Family Medicine 04/07/2404/30 Merry Paz LPN 05/19/24 documented as of this encounter
--- OUTSIDE RECORDS SUMMARY | 2024-08-04 13:02 | XMS_ITS | Encounter Summary ---
Author Organization [facility] Address [address] [place] [address] Care Team Providers Care Central Supply Technician Supervisor Name Role Phone Malcolm Cid MD Primary Care Provider [phone] Source Comments In the event this information is protected by the Federal Confidentiality of Alcohol and Drug AbusePatient Records regulations: The Federal rules restrict any use of the information to criminally investigate or prosecute any alcohol or drug abuse patient.[facility] Encounter Details Date Type Department Care Team (Late st Contact Info) Description 08/19/2020 Patient Msg Rheumatology [address] [place], [place] [address] [place] [address] [place] [address] August lab reminder Social History Tobacco Use Types Packs/Day Years Used Date Smoking Tobacco: Never Smokeless Tobacco: Current Chew PHQ-2 Answer Date Recorded PHQ-2 score 3 08/19/2020 Area Deprivation Index Answer Date Adis rded National Score (1-100), lower number is lower ri sk Not on file 02/05/2020 State Score (1-10), lower number is lower risk N ot on file 02/05/2020 Data from: https://www.neighborhoodatlas.[facility]/. Last address [...] 10/03/2024 8:00 AM EDT Office Visit Rheumatology [address] [place], [place] 4956[address] [place] [address] [place], [place] 79[address] Return in about 9 months (around 10/03/2024). documented as of this encounter Visit Diagnoses Not on filedocumented in this encounter Care Teams Central Supply Technician Supervisor Relationship Specialty Start Date End Date Malcolm Cid MD PCP - General Family Medicine 01/07/15 documented as of this encounter
--- OUTSIDE RECORDS SUMMARY | 2024-08-04 13:02 | XMS_ITS | Encounter Summary ---
Author Organization [facility] Address [address] [place] [address] Care Team Providers Care Family Coach Name Role Phone Malcolm Cid MD Primary Care Provider [phone] Source Comments In the event this information is protected by the Federal Confidentiality of Alcohol and Drug AbusePatient Records regulations: The Federal rules restrict any use of the information to criminally investigate or prosecute any alcohol or drug abuse patient.[facility] Encounter Details Date Type Department Care Team (Late st Contact Info) Description 09/16/2023 Patient [facility] HB-[address] [place] [address] Mariah Hutchins RPh At your next appointment, choose [facility] Social History Tobacco Use Types [...] center.[email or web address]/. Last address used for calculation [address] [facility] 08/14/2022 Sex and Gender Information [...] 10/03/2024 8:00 AM EDT Office Visit Rheumatology [address] [place] [address] [place] [address] [place] [address] Return in about 9 months (around 10/03/2024). documented as of this encounter Visit Diagnoses Not on filedocumented in this encounter Care Teams Family Coach Relationship Specialty Start Date End Date Malcolm Cid MD PCP - General Family Medicine 01/07/15 documented as of this encounter
--- OUTSIDE RECORDS SUMMARY | 2024-08-04 13:02 | XMS_ITS | Encounter Summary ---
Author Organization [facility] Address [address] [place] [address] Care Team Providers Care Forest Manager Name Role Phone Malcolm Cid MD Primary Care Provider [phone] Malcolm Cid MD Unavailable Wednesday, Alma AQUINON Unavailable Jayne Del Valle RN Unavailable [phone] Merry Paz PROGRAM ELIGIBILITY SPECIALIST Unavailable Unavailable Encounter Details Date Type Department Care Team (Late st Contact Info) Description 06/09/2023 Orders Only [facility] [address] [place] [address] Unallocated, Noms Provider, [address] [place], [place] [address] Social History Tobacco Use Types Packs/Day Years [...] 08/07/2024 11:00 AM EDT Office Visit [facility] [address] [facility] 110 [place] [address] Marina Proctor PA [address] [facility] 110 [place] [address] documented as of this encounter Procedures Procedure Name Priority Date/Time Associated Diagnosis Comments ELECTROCARDIOGRAM REPORT Routine 024 7:55 AM EDT documented in this encounter Results * Electrocardiogram Report (06/02/2023 7:55 AM EDT) us Noms Provider Unallocated MD IN CLINIC/BEDSIDE O RDERABLES Final Result documented in this encounter Visit Diagnoses Not on filedocumented in this encounter Care Teams Forest Manager Relationship Specialty Start Date End Date Malcolm Cid MD [address] [place] [address] PCP - General Family Medicine 07/29/22 Malcolm Cid MD [address] [place] [address] PCP - [facility] 05/30/22Wednesday, BREE Marquez [address] [place] [address] Licensed Practical Nurse Family Medicine 06/04/23 Jayne Del Valle, RN Licensed Practical Nurse Family Medicine 04/07/2404/30 Merry Paz LPN 05/19/24 documented as of this encounter
--- OUTSIDE RECORDS SUMMARY | 2024-08-04 13:02 | XMS_ITS | Encounter Summary ---
Author Organization [facility] Address [address] [place] [address] Care Team Providers Care Forging Roll Operator Name Role Phone Malcolm Cid MD Primary Care Provider [phone] Malcolm Cid MD Unavailable Wednesday, Alma AQUINON Unavailable [phone] Jayne Del Valle RN Unavailable Meryr Paz TUBE TESTER Unavailable Unavailable Encounter Details Date Type Department Care Team (Late st Contact Info) Description 05/11/2023 Abstract [facility] [address] [facility] 110 [place] [address] Malcolm Cid MD 112 [facility] 110 [place], [place] [address] Social History Tobacco Use Types Packs/Day Years [...] 08/07/2024 11:00 AM EDT Office Visit [facility] [address] [facility] 110 [place] [address] Marina Proctor PA [address] [place] [address] documented as of this encounter Visit Diagnoses Not on filedocumented in this encounter Care Teams Forging Roll Operator Relationship Specialty Start Date End Date Malcolm Cid MD [address] [place] [address] PCP - General Family Medicine 07/29/22 Malcolm Cid MD [address] [place] [address] PCP - [facility] 05/30/22Wednesday, BREE Marquez [address] [place] [address] Licensed Practical Nurse Family Medicine 06/04/23 Jayne Dle Valle, [place] Licensed Practical Nurse Family Medicine 04/07/2404/30 Merry Paz LPN 05/19/24 documented as of this encounter
--- OUTSIDE RECORDS SUMMARY | 2024-08-04 13:02 | XMS_ITS | Encounter Summary ---
Author Organization [facility] Address [facility] [place] [address] Care Team Providers Care Road Tester Name Role Phone Malcolm Cid MD Primary Care Provider [phone] Source Comments In the event this information is protected by the Federal Confidentiality of Alcohol and Drug AbusePatient Records regulations: The Federal rules restrict any use of the information to criminally investigate or prosecute any alcohol or drug abuse patient.[facility] Encounter Details Date Type Department Care Team (Late st Contact Info) Description 09/17/2020 Patient Msg Kidney Medicine [address] [place], [place] [id number] Madonna Serrano, SOLAR MECHANICAL ENGINEER.INSIDE OUTSIDE SALES REPRESENTATIVE [address] [place] [address] RE: BP Social History Tobacco [...] file 02/05/2020 Data from: https://www.neighborhoodatlas.[facility]/. Last address used for calculation Not on [...] 10/03/2024 8:00 AM EDT Office Visit Rheumatology [address] [place], [place] [id number] [place] [address] [place], [place] [id number] Return in about 9 months (around 10/03/2024). documented as of this encounter Visit Diagnoses Not on filedocumented in this encounter Care Teams Road Tester Relationship Specialty Start Date End Date Malcolm Cid MD PCP - General Family Medicine 01/07/15 documented as of this encounter
--- OUTSIDE RECORDS SUMMARY | 2024-08-04 13:02 | XMS_ITS | Encounter Summary ---
Author Organization [facility] Address [address] [place] [address] Care Team Providers Care Health Manager Name Role Phone Malcolm Cid MD Primary Care Provider [phone] Malcolm Cid MD Unavailable Wednesday, Alma AQUINON Unavailable [phone] Jayne Del Valle RN Unavailable [phone] Merry Paz PUBLIC HEALTH SOCIAL WORKER Unavailable Unavailable Encounter Details Date Type Department Care Team (Late st Contact Info) Description 04/21/2023 Orders Only [facility] [address] [place] [address] [place] [address] A, Unknown Practice [address] [place] [address] Social History Tobacco Use Types Packs/Day Years [...] How often do you attend chur or mormonism services? More than 4 times per year 09/14/2022 Do you belong to any clubs o r organizations such as restoration groups, unions, fraternal or athletic groups, or [...] 08/07/2024 11:00 AM EDT Office Visit [facility] 112 [facility] 110 [place] [address] Marina Proctor PA [address] [facility] 110 [place] [address] documented as of this encounter Procedures Procedure Name Priority Date/Time Associated Diagnosis Comments ELECTROCARDIOGRAM REPORT Routine 024 2:49 PM EST documented in this encounter Results * Electrocardiogram Report (04/20/2023 2:49 PM EST) us Unknown Practice A IN CLINIC/BEDSIDE ORDERABLES Final Result documented in this encounter Visit Diagnoses Not on filedocumented in this encounter Care Teams Health Manager Relationship Specialty Start Date End Date Palak, Rugen M, MD [address] [place] [address] PCP - General Family Medicine 07/29/22 Malcolm Cid MD [address] [place] [address] [place] [address] PCP - [facility] 05/30/22Wednesday, BREE Marquez [address] [place] [address] Licensed Practical Nurse Family Medicine 06/04/23 Jayne Del Valle, RN Licensed Practical Nurse Family Medicine 04/07/2404/30 Merry Paz LPN 05/19/24 documented as of this encounter
--- OUTSIDE RECORDS SUMMARY | 2024-08-04 13:02 | XMS_ITS | Encounter Summary ---
Author Organization [facility] Address [address] [place] [address] Care Team Providers Care Baking Powder Mixer Name Role Phone Malcolm Cid MD Primary Care Provider [phone] Malcolm Cid MD Unavailable Wednesday, Alma AQUINON Unavailable [phone] Jayne Del Valle RN Unavailable [phone] Merry Paz LPN Unavailable Unavailable Encounter Details Date Type Department Care Team (Late st Contact Info) Description 05/10/2023 Orders Only [facility] [address] [place] [place] [address] A, Unknown Practice [address] [place] [address] Social History Tobacco Use Types Packs/Day Years [...] [facility] [address] [facility] 110 [place] [address] Marina Proctor PA [address] [facility] 110 [place] [address] documented as of this encounter Procedures Procedure Name Priority Date/Time Associated Diagnosis Comments ELECTROCARDIOGRAM REPORT Routine 024 1:03 PM EST documented in this encounter Results * Electrocardiogram Report (05/08/2023 1:03 PM EST) us Unknown Practice A IN CLINIC/BEDSIDE ORDERABLES Final Result documented in this encounter Visit Diagnoses Not on filedocumented in this encounter Care Teams Baking Powder Mixer Relationship Specialty Start Date End Date Malcolm Cid MD [address] [place] [address] PCP - General Family Medicine 07/29/22 Malcolm Cid MD [address] [place] [address] PCP - [facility] 05/30/22WednesdayAlma LPN [address] [place] [address] Licensed Practical Nurse Family Medicine 06/04/23 Jayne Del Valle, RN Licensed Practical Nurse Family Medicine 04/07/2404/30 Merry Paz LPN 05/19/24 documented as of this encounter
--- OUTSIDE RECORDS SUMMARY | 2024-08-04 13:02 | XMS_ITS | Encounter Summary ---
Author Organization [facility] Address [address] [place] [address] Care Team Providers Care Environmental Health Aide Name Role Phone Malcolm Cid MD Primary Care Provider [phone] Source Comments In the event this information is protected by the Federal Confidentiality of Alcohol and Drug AbusePatient Records regulations: The Federal rules restrict any use of the information to criminally investigate or prosecute any alcohol or drug abuse patient.[facility] Encounter Details Date Type Department Care Team (Late st Contact Info) Description 08/14/2022 Patient Msg Rheumatology [address] [place], [place] [id number] [place] [address] [place] [address] Previsit lab reminder Social History Tobacco Use Types Packs/Day Years Used Date Smoking Tobacco: Never Smokeless Tobacco: Current Chew PHQ-2 Answer Date Recorded PHQ-2 score 4 08/13/2022 Area Deprivation Index Answer Date Adis rded National Score (1-100), lower number is lower ri sk 87 08/14/2022 State Score (1-10), lower number is lower risk 8 08/14/2022 Data from: https://www.neighborhoodatlas.[facility]/. Last address used for calculation [...] 10/03/2024 8:00 AM EDT Office Visit Rheumatology [address] [place], [place] [id number] [place] [address] [place], [place] [id number] Return in about 9 months (around 10/03/2024). documented as of this encounter Visit Diagnoses Not on filedocumented in this encounter Care Teams Environmental Health Aide Relationship Specialty Start Date End Date Malcolm Cid MD PCP - General Family Medicine 01/07/15 documented as of this encounter
--- OUTSIDE RECORDS SUMMARY | 2024-08-04 13:03 | XMS_ITS | Encounter Summary ---
Author Organization [facility] Address [address] [place] [address] Care Team Providers Care Wheel Buffer Name Role Phone Malcolm Sears MD Primary Care Provider [phone] Malcolm Sears MD Unavailable Wednesday, Alma AQUINON Unavailable [phone] Jayne Del Valle RN Unavailable Merry Paz CHICKEN VACCINATOR Unavailable Unavailable Reason for Visit * Reason Onset Date Comments Med Refill 02/04/2024 Encounter Details Date Type Department Care Team (Late st Contact Info) Description 02/04/2024 Refill [facility] [address] [facility] 110 [place] [address] Marina Proctor, PA [address] [place] [address] Rheumatoid arthritis involving multiple sites with positive rheumatoid factor ([facility]/HCC) Social History Tobacco Use Types Packs/Day Years [...] week 10/10/2023 How often do you attend [facility] or baptism services? More than 4 times [...] care, and heating? Not very hard 10/10/2023 [facility] of Occupat ional Health - Occupational Stress [...] [facility] [address] [place] [address] Marina Proctor PA [address] [place] [address] [place] [address] documented as of this encounter Visit Diagnoses Diagnosis Rheumatoid arthritis involving multiple sites with positive rheumatoid factor ([facility]) documented in this encounter Care Teams Wheel Buffer Relationship Specialty Start Date End Date Malcolm Sears MD [address] [place] [address] PCP - General Family Medicine 07/29/22 Malcolm Sears MD [address] [place] [address] PCP - [facility] 05/30/22Wednesday, BREE Marquez [address] [place] [address] Licensed Practical Nurse Family Medicine 06/04/23 Jayne Del Valle, RN Licensed Practical Nurse Family Medicine 04/07/2404/30 Merry Paz LPN 05/19/24 documented as of this encounter
--- OUTSIDE RECORDS SUMMARY | 2024-08-04 13:03 | XMS_ITS | Encounter Summary ---
Author Organization [facility] Address [address] [place] [address] Care Team Providers Care Windows Deployment Technician Name Role Phone Malcolm Cid MD Primary Care Provider [phone] Malcolm Cid MD Unavailable Wednesday, Alma FOREST LOGISTICS MANAGER Unavailable [phone] Jayne Del Valle RN Unavailable Merry Paz FOREST LOGISTICS MANAGER Unavailable Unavailable Encounter Details Date Type Department Care Team (Late st Contact Info) Description 08/10/2022 Orders Only [facility] [address] [facility] 110 [place] [address] Stephen Shields MD [address] [facility] 110 [place] [address] Social History Tobacco Use Types Packs/Day Years [...] FM [address] [place] [place] [address] Marina Proctor, PA [address] [place] [address] documented as of this encounter Procedures Procedure [...] on filedocumented in this encounter Care Teams Windows Deployment Technician Relationship Specialty Start Date End Date Malcolm Cid MD [address] [place] [address] PCP - General Family Medicine 07/29/22 Malcolm Cid MD [address] [place] [address] PCP - [facility] 05/30/22Wednesday, BREE Marquez [address] [place] [address] Licensed Practical Nurse Family Medicine 06/04/23 Jayne Del Valle, RN Licensed Practical Nurse Family Medicine 04/07/2404/30 Merry Paz LPN 05/19/24 documented as of this encounter
--- OUTSIDE RECORDS SUMMARY | 2024-08-04 13:03 | XMS_ITS | Encounter Summary ---
Author Organization [facility] Address [facility] [place] [address] Care Team Providers Care Pet Supplies Salesperson Name Role Phone Malcolm Cid MD Primary Care Provider [phone] Source Comments In the event this information is protected by the Federal Confidentiality of Alcohol and Drug AbusePatient Records regulations: The Federal rules restrict any use of the information to criminally investigate or prosecute any alcohol or drug abuse patient.[facility] Encounter Details Date Type Department Care Team (Late st Contact Info) Description 12/23/2020 Patient Msg Kidney Medicine [address] [place], [place] [id number] Madonna Serrano, CAPTAIN/AIRLINE PILOT.ETIQUETTE COACH [address] [place] [address] RE: BP Social History Tobacco Use Types Packs/Day Years Used Date Smoking Tobacco: Never Smokeless Tobacco: Current Chew PHQ-2 Answer Date Recorded PHQ-2 score 3 08/19/2020 Area Deprivation Index Answer Date Adis rded National Score (1-100), lower number is lower ri sk Not on file 02/05/2020 State Score (1-10), lower number is lower risk N ot on file 02/05/2020 Data from: https://www.neighborhoodatlas.[facility]/. Last address used for calculation [...] 10/03/2024 8:00 AM EDT Office Visit Rheumatology [address] [place], [place] [phone] [place] [address] [place], [place] [id number] Return in about 9 months (around 10/03/2024). documented as of this encounter Visit Diagnoses Not on filedocumented in this encounter Care Teams Pet Supplies Salesperson Relationship Specialty Start Date End Date Malcolm Cid MD PCP - General Family Medicine 01/07/15 documented as of this encounter
--- OUTSIDE RECORDS SUMMARY | 2024-08-04 13:03 | XMS_ITS | Encounter Summary ---
Author Organization [facility] Address [address] [place] [address] Care Team Providers Care Part Time Receptionist Name Role Phone Malcolm Cid MD Primary Care Provider [phone] Malcolm Cid MD Unavailable Wednesday, Alma AQUINON Unavailable [phone] Jayne Del Valle RN Unavailable [phone] Merry Paz LPN Unavailable Unavailable Encounter [...] care, and heating? Not very hard 10/10/2023 [facility] of Occupat ional Health - [...] in a residential (including now)? No 09/14/2022 Housing Stability Vital Sign Answer Sohail e Recorded In the last 12 months, was t here a time when you were not able to pay the mortgage or rent on time? Yes 10/10/2023 In the past 12 months, how m any times have you moved where you were living? 0 10/10/2023 At any time in the past 12 m [facility], were you homeless or living in a residential (including now)? No 10/10/2023 Sex and Gender [...] EDT Office Visit [facility] 112 [facility] 110 [place] [address] Marina Proctor PA 112 [facility] 110 [place] [address] documented as of this encounter Procedures Procedure [...] progressed from 05/04/2017 Mild right foot osteoarthritis. Body Press Operator: PSCB Transcribe Date/Time: Jan 04 2024 10:13A Dictated by : UMA ROGERS MD This examination was interpreted and the report reviewed and electronically signed by: CHELSEA REEVES MD on Jan 04 2024 3:12PM EST [id number]^SI^ACN Procedure Note Radiology, Radiologist, - 01/04/2024 * [...] progressed from 05/04/2017 Mild right foot osteoarthritis. Body Press Operator: ADELA Transcribe Date/Time: Jan 04 2024 10:13A Dictated by : UMA ROGERS MD This examination was interpreted and the report reviewed and electronically signed by: CHELSEA REEVES MD on Jan 04 2024 3:12PM EST [id number]^[id number]^SI^ACN us Generic External Data Provider [facility] Final Result documented in this encounter Visit Diagnoses Not on filedocumented in this encounter Care Teams Part Time Receptionist Relationship Specialty Start Date End Date Malcolm Cid MD [address] [facility] 110 [place] [address] PCP - General Family Medicine 07/29/22 Malcolm Cid MD [address] [facility] 110 [place] [address] PCP - [facility] 05/30/22Wednesday, BREE Marquez 112 [facility] [address] [place] [address] Licensed Practical Nurse Family Medicine 06/04/23 Jayne Del Valle, DELMIS Licensed Practical Nurse Family Medicine 04/07/2404/30 Merry Paz LPN 05/19/24 documented as of this encounter
--- OUTSIDE RECORDS SUMMARY | 2024-08-04 13:03 | XMS_ITS | Encounter Summary ---
Author Organization [facility] Address [address] [place] [address] Care Team Providers Care Sand Buffer Name Role Phone Malcolm Cid MD Primary Care Provider [phone] Malcolm Cid MD Unavailable Wednesday, Alma AQUINON Unavailable [phone] Jayne Del Valle RN Unavailable Merry Paz ACTUARIAL ANALYST Unavailable Unavailable Reason for Visit * Reason Comments Med Refill Encounter Details Date Type Department Care Team (Late st Contact Info) Description 12/03/2022 Refill [facility] [address] [facility] 110 [place] [address] Marina Proctor, PA [address] [facility] 110 [place] [address] Rheumatoid arthritis, unspecified (CMS/HCC) Social History Tobacco [...] [facility] [address] [facility] 110 [place] [address] Marina Proctor PA [address] [facility] 110 [place] [address] documented as of this encounter Visit Diagnoses Diagnosis Rheumatoid arthritis, unspecified documented in this encounter Care Teams Sand Buffer Relationship Specialty Start Date End Date Malcolm Cid MD [address] [place] [address] PCP - General Family Medicine 07/29/22 Malcolm Cid MD [address] [place] [address] PCP - [facility] 05/30/22Wednesday, BREE Marquez [address] [place] [address] Licensed Practical Nurse Family Medicine 06/04/23 Jayne Del Valle, RN Licensed Practical Nurse Family Medicine 04/07/2404/30 Merry Paz LPN 05/19/24 documented as of this encounter
--- OUTSIDE RECORDS SUMMARY | 2024-08-04 13:03 | XMS_ITS | Encounter Summary ---
Author Organization [facility] Address [address] [place] [address] Care Team Providers Care Medical Equipment Repairer Name Role Phone Malcolm Cid MD Primary Care Provider [phone] Malcolm Cid MD Unavailable Wednesday, Alma AQUINON Unavailable [phone] Jayne Del Valle RN Unavailable Merry Paz LABORER BITUMINOUS PAVING Unavailable Unavailable Encounter Details Date Type Department Care Team (Late st Contact Info) Description 01/12/2023 Abstract [facility] [address] [facility] 110 [place] [address] Malcolm Cid MD 112 [facility] 110 [place], [place] [address] Social History Tobacco Use Types Packs/Day Years [...] EDT Office Visit [facility] 112 [facility] 110 [place] [address] Marina Proctor PA [address] [facility] 110 [place] [address] documented as of this encounter Visit Diagnoses Not on filedocumented in this encounter Care Teams Medical Equipment Repairer Relationship Specialty Start Date End Date Malcolm Cid MD [address] [facility] 110 [place] [address] PCP - General Family Medicine 07/29/22 Malcolm Cid MD [address] [facility] 110 [place] [address] PCP - [facility] 05/30/22Wednesday, BREE Marquez [address] [facility] 110 [place] [address] Licensed Practical Nurse Family Medicine 06/04/23 Jayne Del Valle, RN Licensed Practical Nurse Family Medicine 04/07/2404/30 Merry Paz LPN 05/19/24 documented as of this encounter
--- OUTSIDE RECORDS SUMMARY | 2024-08-04 13:03 | XMS_ITS | Encounter Summary ---
Author Organization [facility] Address [address] [place] [address] Care Team Providers Care Manager Inside Name Role Phone Malcolm Cid MD Primary Care Provider [phone] Malcolm Cid MD Unavailable Wednesday, Alma AQUINON Unavailable [phone] Jayne Del Valle RN Unavailable [phone] Merry Paz MEDICAL REPRESENTATIVE Unavailable Unavailable Encounter Details Date Type Department Care Team (Late st Contact Info) Description 12/03/2022 Orders Only [facility] [address] [place] [address] [place] [address] A, Unknown Practice [address] [place] [address] Social History Tobacco Use Types Packs/Day Years [...] often do you attend chur ch or protestant services? More than 4 times [...] 09/14/2022 [facility] of Occupat ionmn Health - Occupational Stress Questionnaire Answer Date [...] Visit [facility] [address] [facility] 110 [place] [address] Marina Proctor PA [address] [facility] 110 [place] [address] documented as of this encounter Procedures Procedure Name Priority Date/Time Associated Diagnosis Comments ELECTROCARDIOGRAM REPORT Routine 023 8:39 AM EDT documented in this encounter Results * Electrocardiogram Report (12/02/2022 8:39 AM EDT) us Unknown Practice A IN CLINIC/BEDSIDE ORDERABLES Final Result documented in this encounter Visit Diagnoses Not on filedocumented in this encounter Care Teams Manager Inside Relationship Specialty Start Date End Date Malcolm Cid MD [address] [facility] 110 [place] [address] PCP - General Family Medicine 07/29/22 Malcolm Cid MD [address] [place] [address] PCP - [facility] 05/30/22Wednesday, BREE Marquez [address] [place] [address] Licensed Practical Nurse Family Medicine 06/04/23 Jayne Del Valle, RN Licensed Practical Nurse Family Medicine 04/07/2404/30 Merry Paz LPN 05/19/24 documented as of this encounter
--- OUTSIDE RECORDS SUMMARY | 2024-08-04 13:03 | XMS_ITS | Encounter Summary ---
Author Organization [facility] Address [address] [place] [address] Care Team Providers Care Baseball Scout Name Role Phone Malcolm Cid MD Primary Care Provider [phone] Source Comments In the event this information is protected by the Federal Confidentiality of Alcohol and Drug AbusePatient Records regulations: The Federal rules restrict any use of the information to criminally investigate or prosecute any alcohol or drug abuse patient.[facility] Encounter Details Date Type Department Care Team (Late st Contact Info) Description 07/29/2017 Patient Msg Neurology [address] [place], [place] [id number] Provider, [facility] Follow up - Dr Castro [...] 10/03/2024 8:00 AM EDT Office Visit Rheumatology [address] [place] [address] [place] [address] [place] [address] Return in about 9 months (around 10/03/2024). documented as of this encounter Visit Diagnoses Not on filedocumented in this encounter Care Teams Baseball Scout Relationship Specialty Start Date End Date Malcolm Cid MD PCP - General Family Medicine 01/07/15 documented as of this encounter
--- OUTSIDE RECORDS SUMMARY | 2024-08-04 13:03 | XMS_ITS | Encounter Summary ---
Author Organization [facility] Address [address] [place] [address] Care Team Providers Care Licensed Pesticide Applicator Name Role Phone Malcolm Cid MD Primary Care Provider [phone] Malcolm Cid MD Unavailable Wednesday, Alma AQUINON Unavailable [phone] Jayne Del Valle RN Unavailable [phone] Merry Paz LEAD ASSISTANT MANAGER Unavailable Unavailable Encounter Details Date Type Department Care Team (Late st Contact Info) Description 02/17/2023 Abstract [facility] [address] [facility] 110 [place] [address] Malcolm Cid MD 112 [facility] 110 [place], [place] [address] Social History Tobacco Use Types Packs/Day Years [...] heating? Not very hard 09/14/2022 [facility] of Occupat ional Health - Occupational [...] 08/07/2024 11:00 AM EDT Office Visit [facility] [address] [facility] 110 [place] [address] Marina Proctor PA [address] [facility] 110 [place] [address] documented as of this encounter Visit Diagnoses Not on filedocumented in this encounter Care Teams Licensed Pesticide Applicator Relationship Specialty Start Date End Date Malcolm Cid MD [address] [facility] 110 [place] [address] PCP - General Family Medicine 07/29/22 Malcolm Cid MD [address] [place] [address] PCP - [facility] 05/30/22Wednesday, BREE Marquez [address] [place] [address] Licensed Practical Nurse Family Medicine 06/04/23 Jayne Del Valle, DELMIS Licensed Practical Nurse Family Medicine 04/07/2404/30 Merry Paz LPN 05/19/24 documented as of this encounter
--- OUTSIDE RECORDS SUMMARY | 2024-08-04 13:03 | XMS_ITS | Encounter Summary ---
Author Organization [facility] Address [address] [place] [address] Care Team Providers Care Lead Software Developer Name Role Phone Malcolm Cid MD Primary Care Provider [phone] Malcolm Cid MD Unavailable Wednesday, Alma AQUINON Unavailable [phone] Jayne Del Valle RN Unavailable [phone] Merry Paz PROBLEM MANAGER Unavailable Unavailable Encounter Details Date Type Department Care Team (Late st Contact Info) Description 12/16/2022 Abstract [facility] [address] [facility] 110 [place] [address] Marina Proctor, PA 112 [facility] 110 [place], [place] [address] Social History Tobacco Use Types Packs/Day Years [...] and heating? Not very hard 09/14/2022 [facility] Occupat ional Health - Occupational [...] Visit [facility] [address] [facility] 110 [place] [address] Marina Proctor PA [address] [facility] 110 [place] [address] documented as of this encounter Visit Diagnoses Not on filedocumented in this encounter Care Teams Lead Software Developer Relationship Specialty Start Date End Date Malcolm Cid MD [address] [facility] 110 [place] [address] PCP - General Family Medicine 07/29/22 Malcolm Cid MD [address] [place] [address] [place] [address] PCP - [facility] 05/30/22Wednesday, BREE Marquez [address] [place] [address] Licensed Practical Nurse Family Medicine 06/04/23 Jayne Del Valle, RN Licensed Practical Nurse Family Medicine 04/07/2404/30 Merry Paz LPN 05/19/24 documented as of this encounter
--- OUTSIDE RECORDS SUMMARY | 2024-08-04 13:03 | XMS_ITS | Encounter Summary ---
Author Organization [facility] Address [address] [place] [address] Care Team Providers Care Pouch Maker Name Role Phone Malcolm Cid MD Primary Care Provider [phone] Malcolm Cid MD Unavailable Wednesday, Alma AQUINON Unavailable Jayne Del Valle RN Unavailable [phone] Merry Paz COMPUTER EQUIPMENT INSTALLER Unavailable Unavailable Encounter Details Date Type Department Care Team (Late st Contact Info) Description 02/16/2023 Abstract [facility] [address] [facility] 110 [place] [address] Malcolm Cid MD 112 [facility] 110 [place], [place] [address] Social History Tobacco Use Types Packs/Day Years [...] 11:00 AM EDT Office Visit [facility] [address] [facility] 110 [place] [address] Marina Proctor PA [address] [facility] 110 [place] [address] documented as of this encounter Visit Diagnoses Not on filedocumented in this encounter Care Teams Pouch Maker Relationship Specialty Start Date End Date Malcolm Cid MD [address] [facility] 110 [place] [address] PCP - General Family Medicine 07/29/22 Malcolm Cid MD [address] [address] [place] [address] PCP - [facility] 05/30/22Wednesday, BREE Marquez [address] [place] [address] Licensed Practical Nurse Family Medicine 06/04/23 Jayne Del Valle, DELMIS Licensed Practical Nurse Family Medicine 04/07/2404/30 Merry Paz LPN 05/19/24 documented as of this encounter
--- OUTSIDE RECORDS SUMMARY | 2024-08-04 13:03 | XMS_ITS | Encounter Summary ---
Author Organization [facility] Address [address] [place] [address] Care Team Providers Care Applied Researcher Name Role Phone Malcolm Cid MD Primary Care Provider [phone] Source Comments In the event this information is protected by the Federal Confidentiality of Alcohol and Drug AbusePatient Records regulations: The Federal rules restrict any use of the information to criminally investigate or prosecute any alcohol or drug abuse patient.[facility] Encounter Details Date Type Department Care Team (Late st Contact Info) Description 09/27/2017 Patient Msg Pediatric Rheumatology [address] [place], [place] [id number] Provider, Ccf Regarding refill request Social History [...] 04/26/2017 6:15 PM Oralia Hurtaod RN * Do you have serious difficulty [...] 10/03/2024 8:00 AM EDT Office Visit Rheumatology [address] [place] [address] [place] [address] [place] [address] Return in about 9 months (around 10/03/2024). documented as of this encounter Visit Diagnoses Not on filedocumented in this encounter Care Teams Applied Researcher Relationship Specialty Start Date End Date Malcolm Cid MD PCP - General Family Medicine 01/07/15 documented as of this encounter
--- OUTSIDE RECORDS SUMMARY | 2024-08-04 13:03 | XMS_ITS | Encounter Summary ---
Author Organization [facility] Address [address] [place] [address] Care Team Providers Care Middle Stitcher Name Role Phone Malcolm Cid MD Primary Care Provider [phone] Malcolm Cid MD Unavailable Wednesday, Alma AQUINON Unavailable [phone] Jayne Del Valle RN Unavailable Merry Paz COLOR MAKER FORMULATOR Unavailable Unavailable Encounter Details Date Type Department Care Team (Late st Contact Info) Description 02/09/2024 Abstract [facility] 112 [facility] 110 [place] [address] Malcolm Cid MD 112 [facility] 110 [place], [place] [address] Social History Tobacco Use Types Packs/Day Years [...] very hard 10/10/2023 [facility] of Occupat ional Health - Occupational [...] in a fpc (including now)? No 09/14/2022 Housing Stability Vital Sign Answer Sohail e Recorded In the last 12 months, was t here a time when you were not able to pay the mortgage or rent on time? Yes 10/10/2023 In the past 12 months, how m any times have you moved where you were living? 0 10/10/2023 At any time in the past 12 m [facility], were you homeless or living in a fpc (including now)? No 10/10/2023 Sex and Gender [...] FM [address] [place] [address] [place] [address] Marina Proctor PA [address] [place] [address] [place] [address] documented as of this encounter Visit Diagnoses Not on filedocumented in this encounter Care Teams Middle Stitcher Relationship Specialty Start Date End Date Malcolm Cid MD [address] [place] [address] [place] [address] PCP - General Family Medicine 07/29/22 Malcolm Cid MD [address] [place] [address] [place] [address] PCP - [facility] 05/30/22Wednesday, BREE Marquez [address] [place] [address] Licensed Practical Nurse Family Medicine 06/04/23 Jayne Del Valle, RN Licensed Practical Nurse Family Medicine 04/07/2404/30 Merry Paz LPN 05/19/24 documented as of this encounter
--- OUTSIDE RECORDS SUMMARY | 2024-08-04 13:03 | XMS_ITS | Encounter Summary ---
Author Organization [facility] Address [address] [place] [address] Care Team Providers Care Air Vice Marshal Name Role Phone Malcolm Cid MD Primary Care Provider [phone] Malcolm Cid MD Unavailable Wednesday, Alma AQUINON Unavailable [phone] Jayne Del Valle RN Unavailable [phone] Merry Paz MAGNETIC PROSPECTOR Unavailable Unavailable Encounter Details Date Type Department Care Team (Late st Contact Info) Description 01/17/2024 Abstract [facility] 112 [facility] 110 [place] [address] Malcolm Cid MD 112 [facility] 110 [place], [place] [id number] Social History Tobacco Use Types Packs/Day Years [...] care, and heating? Not very hard 10/10/2023 [facility] [place] of Occupat ional Health - Occupational Stress [...] any time in the past 12 m [facility], were you homeless or living [...] FM [address] [place] [address] [place] [address] Marina Proctor PA [address] [place] [address] [place] [address] documented as of this encounter Visit Diagnoses Not on filedocumented in this encounter Care Teams Air Vice Marshal Relationship Specialty Start Date End Date Malcolm Cid MD [address] [place] [address] [place] [address] PCP - General Family Medicine 07/29/22 Malcolm Cid MD [address] [place] [address] [place] [address] PCP - [facility] 05/30/22Wednesday, BREE Marquez [address] [place] [address] Licensed Practical Nurse Family Medicine 06/04/23 Jayne Del Valle, RN Licensed Practical Nurse Family Medicine 04/07/2404/30 Merry Paz LPN 05/19/24 documented as of this encounter
--- OUTSIDE RECORDS SUMMARY | 2024-08-04 13:03 | XMS_ITS | Encounter Summary ---
Author Organization [facility] Address [address] [place] [address] Care Team Providers Care Webfocus Developer Name Role Phone Malcolm Cid MD Primary Care Provider [phone] Source Comments In the event this information is protected by the Federal Confidentiality of Alcohol and Drug AbusePatient Records regulations: The Federal rules restrict any use of the information to criminally investigate or prosecute any alcohol or drug abuse patient.[facility] Encounter Details Date Type Department Care Team (Late st Contact Info) Description 01/01/2022 Patient Msg Rheumatology [address] [place], [place] [id number] [place] [address] [place] [address] Previsit lab reminder Social History Tobacco Use [...] on file 02/05/2020 Data from: https://www.neighborhoodatlas.[facility]/. Last address used for calculation [...] 10/03/2024 8:00 AM EDT Office Visit Rheumatology [address] [place], [place] [address] [place] [address] [place], [place] [phone] Return in about 9 months (around 10/03/2024). documented as of this encounter Visit Diagnoses Not on filedocumented in this encounter Care Teams Webfocus Developer Relationship Specialty Start Date End Date Malcolm Cid MD PCP - General Family Medicine 01/07/15 documented as of this encounter
--- OUTSIDE RECORDS SUMMARY | 2024-08-04 13:03 | XMS_ITS | Encounter Summary ---
Author Organization [facility] Address [address] [place] [address] Care Team Providers Care Mechanical Cad Drafter Name Role Phone Malcolm Cid MD Primary Care Provider [phone] Malcolm Cid MD Unavailable Wednesday, Alma AQUINON Unavailable [phone] Jayne Del Valle RN Unavailable [phone] Merry Paz BORDER POLICE Unavailable Unavailable Encounter Details Date Type Department Care Team (Late st Contact Info) Description 02/15/2023 Abstract [facility] [address] [facility] 110 [place] [address] Malcolm Cid MD 112 [facility] 110 [place], [place] [id number] Social History Tobacco Use Types Packs/Day Years [...] [facility] [address] [facility] 110 [place] [address] Marina Proctor PA [address] [facility] 110 [place] [address] documented as of this encounter Visit Diagnoses Not on filedocumented in this encounter Care Teams Mechanical Cad Drafter Relationship Specialty Start Date End Date Malcolm Cid MD [address] [facility] 110 [place] [address] PCP - General Family Medicine 07/29/22 Malcolm Cid MD [address] [place] [address] PCP - [facility] 05/30/22Wednesday, BREE Marquez [address] [place] [address] Licensed Practical Nurse Family Medicine 06/04/23 Jayne Del Valle, DELMIS Licensed Practical Nurse Family Medicine 04/07/2404/30 Merry Paz LPN 05/19/24 documented as of this encounter
--- OUTSIDE RECORDS SUMMARY | 2024-08-04 13:03 | XMS_ITS | Encounter Summary ---
Author Organization [facility] Address [address] [place] [address] Care Team Providers Care Forming Department End Finder Name Role Phone Malcolm Cid MD Primary Care Provider [phone] Malcolm Cid MD Unavailable Wednesday, Alma AQUINON Unavailable [phone] Jayne Del Valle RN Unavailable Merry Paz LAND SURVEYING PARTY CHIEF Unavailable Unavailable Encounter Details Date Type Department Care Team (Late st Contact Info) Description 02/15/2023 Abstract [facility] [address] [facility] 110 [place] [address] Malcolm Cid MD 112 [facility] 110 [place], [place] [address] Social History Tobacco Use Types Packs/Day Years [...] 08/07/2024 11:00 AM EDT Office Visit [facility] [address] [facility] 110 [place] [address] Marina Proctor PA [address] [facility] 110 [place] [address] documented as of this encounter Visit Diagnoses Not on filedocumented in this encounter Care Teams Forming Department End Finder Relationship Specialty Start Date End Date Malcolm Cid MD [address] [facility] 110 [place] [address] PCP - General Family Medicine 07/29/22 Malcolm Cid MD [address] [place] [address] PCP - [facility] 05/30/22Wednesday, BREE Marquez [address] [place] [address] Licensed Practical Nurse Family Medicine 06/04/23 Jayne Del Valle, DELMIS Licensed Practical Nurse Family Medicine 04/07/2404/30 Merry Paz LPN 05/19/24 documented as of this encounter
--- OUTSIDE RECORDS SUMMARY | 2024-08-04 13:03 | XMS_ITS | Encounter Summary ---
Author Organization [facility] Address [address] [place] [address] Care Team Providers Care Physical Optics Teacher Name Role Phone Malcolm Cid MD Primary Care Provider [phone] Malcolm Cid MD Unavailable Wednesday, Alma AQUINON Unavailable [phone] Jayne Del Valle RN Unavailable [phone] Merry Paz GRANULATING MACHINE OPERATOR Unavailable Unavailable Encounter Details Date Type Department Care Team (Late st Contact Info) Description 09/29/2022 Orders Only [facility] [address] [place] [address] [place] [address] A, Unknown Practice [address] [place] [address] Social History Tobacco Use Types Packs/Day Years [...] often do you attend chur ch or rastafarian services? More than 4 times per year [...] [facility] of Occupat ionpr Health - Occupational Stress Questionnaire Answer Date [...] 08/07/2024 11:00 AM EDT Office Visit [facility] [address] [facility] 110 [place] [address] Marina Proctor PA [address] [place] [facility] 110 [place] [address] documented as of this encounter Procedures Procedure [...] filedocumented in this encounter Care Teams Physical Optics Teacher Relationship Specialty Start Date End Date Malcolm Cid MD [address] [address] [place] [address] PCP - General Family Medicine 07/29/22 Malcolm Cid MD [address] [place] [address] PCP - [facility] 05/30/22WednesdayAlma LPN [address] [place] [address] Licensed Practical Nurse Family Medicine 06/04/23 Jayne Del Valle, RN Licensed Practical Nurse Family Medicine 04/07/2404/30 Merry Paz LPN 05/19/24 documented as of this encounter
--- OUTSIDE RECORDS SUMMARY | 2024-08-04 13:03 | XMS_ITS | Encounter Summary ---
Author Organization [facility] Address [address] [place] [address] Care Team Providers Care Truck Assembler Name Role Phone Mlacolm Cid MD Primary Care Provider [phone] Source Comments In the event this information is protected by the Federal Confidentiality of Alcohol and Drug AbusePatient Records regulations: The Federal rules restrict any use of the information to criminally investigate or prosecute any alcohol or drug abuse patient.[facility] Encounter Details Date Type Department Care Team (Late st Contact Info) Description 12/02/2020 Patient Msg Rheumatology [address] [place], [place] [phone] [place] [address] [place] [address] Previsit lab reminder Social History Tobacco Use [...] on file 02/05/2020 Data from: https://www.neighborhoodatlas.[facility]/. Last address used for calculation [...] 10/03/2024 8:00 AM EDT Office Visit Rheumatology [address] [place] [address] [place] [address] [place], [place] [phone] Return in about 9 months (around 10/03/2024). documented as of this encounter Visit Diagnoses Not on filedocumented in this encounter Care Teams Truck Assembler Relationship Specialty Start Date End Date Malcolm Cid MD PCP - General Family Medicine 01/07/15 documented as of this encounter
--- OUTSIDE RECORDS SUMMARY | 2024-08-04 13:03 | XMS_ITS | Encounter Summary ---
Author Organization [facility] Address [address] [place] [address] Care Team Providers Care Equine Dentist Name Role Phone Malcolm Cid MD Primary Care Provider [phone] Malcolm Cid MD Unavailable Wednesday, Alma AQUINON Unavailable [phone] Jayne Del Valle RN Unavailable Merry Paz EVAPORATOR HELPER Unavailable Unavailable Encounter Details Date Type Department Care Team (Late st Contact Info) Description 01/11/2023 Abstract [facility] [address] [facility] 110 [place] [address] Malcolm Cid MD 112 [facility] 110 [place], [place] [address] Social History Tobacco Use Types Packs/Day Years [...] care, and heating? Not very hard 09/14/2022 [facility] of Occupat ional Health - [...] Office Visit [facility] [address] [facility] 110 [place] [address] Marina Proctor PA [address] [place] [facility] 110 [place] [address] documented as of this encounter Visit Diagnoses Not on filedocumented in this encounter Care Teams Equine Dentist Relationship Specialty Start Date End Date Malcolm Cid MD [address] [facility] 110 [place] [address] PCP - General Family Medicine 07/29/22 Malcolm Cid MD [address] [facility] 110 [place] [address] PCP - [facility] 05/30/22Wednesday, BREE Marquez [address] [facility] 110 [place] [address] Licensed Practical Nurse Family Medicine 06/04/23 Jayne Del Valle, RN Licensed Practical Nurse Family Medicine 04/07/2404/30 Merry Paz LPN 05/19/24 documented as of this encounter
--- OUTSIDE RECORDS SUMMARY | 2024-08-04 13:03 | XMS_ITS | Encounter Summary ---
Author Organization [facility] Address [address] [place] [address] Care Team Providers Care Hand Almond Blancher Name Role Phone Malcolm Cid MD Primary Care Provider [phone] Source Comments In the event this information is protected by the Federal Confidentiality of Alcohol and Drug AbusePatient Records regulations: The Federal rules restrict any use of the information to criminally investigate or prosecute any alcohol or drug abuse patient.[facility] Encounter Details Date Type Department Care Team (Late st Contact Info) Description 09/28/2017 Patient Msg Medical Records [address] [place] [address] Provider, Ccf Oct lab reminder Social History [...] 10/03/2024 8:00 AM EDT Office Visit Rheumatology [address] [place] [address] [place] [address] [place] [address] Return in about 9 months (around 10/03/2024). documented as of this encounter Visit Diagnoses Not on filedocumented in this encounter Care Teams Hand Almond Blancher Relationship Specialty Start Date End Date Malcolm Cid MD PCP - General Family Medicine 01/07/15 documented as of this encounter
--- OUTSIDE RECORDS SUMMARY | 2024-08-04 13:03 | XMS_ITS | Encounter Summary ---
Author Organization [facility] Address [address] [place] [address] Care Team Providers Care Machine Hand Name Role Phone Malcolm Cid MD Primary Care Provider [phone] Source Comments In the event this information is protected by the Federal Confidentiality of Alcohol and Drug AbusePatient Records regulations: The Federal rules restrict any use of the information to criminally investigate or prosecute any alcohol or drug abuse patient.[facility] Encounter Details Date Type Department Care Team (Late st Contact Info) Description 12/06/2017 Patient Msg Medical Records [address] [place] [address] Provider, Ccf Labs needed for Dr. Castro [...] 10/03/2024 8:00 AM EDT Office Visit Rheumatology [address] [place] [address] [place] [address] [place] [address] Return in about 9 months (around 10/03/2024). documented as of this encounter Visit Diagnoses Not on filedocumented in this encounter Care Teams Machine Hand Relationship Specialty Start Date End Date Malcolm Cid MD PCP - General Family Medicine 01/07/15 documented as of this encounter
--- OUTSIDE RECORDS SUMMARY | 2024-08-04 13:03 | XMS_ITS | Encounter Summary ---
Author Organization [facility] Address [address] [place] [address] Care Team Providers Care Rotary Veneer Machine Operator Name Role Phone Malcolm Cid MD Primary Care Provider [phone] Malcolm Cid MD Unavailable Wednesday, Alma DICE PERSON Unavailable [phone] Jayne Del Valle RN Unavailable [phone] Merry Paz DICE PERSON Unavailable Unavailable Encounter Details Date Type Department Care Team (Late st Contact Info) Description 08/17/2022 Abstract [facility] [address] [facility] 110 [place] [address] Malcolm Cid MD [address] [facility] 110 [place] [address] Social History Tobacco Use Types Packs/Day Years [...] Visit [facility] [address] [facility] 110 [place] [address] Marina Proctor, PA [address] [place] [address] documented as of this encounter Visit Diagnoses Not on filedocumented in this encounter Care Teams Rotary Veneer Machine Operator Relationship Specialty Start Date End Date Malcolm Cid MD [address] [address] [place] [address] PCP - General Family Medicine 07/29/22 Malcolm Cid MD [address] [place] [address] PCP - [facility] 05/30/22Wednesday, BREE Marquez [address] [place] [address] Licensed Practical Nurse Family Medicine 06/04/23 Jayne Del Valle, RN Licensed Practical Nurse Family Medicine 04/07/2404/30 Merry Paz LPN 05/19/24 documented as of this encounter
--- OUTSIDE RECORDS SUMMARY | 2024-08-04 13:03 | XMS_ITS | Encounter Summary ---
Author Organization [facility] Address [address] [place] [address] Care Team Providers Care Renal Case Manager Name Role Phone Malcolm Cid MD Primary Care Provider [phone] Malcolm Cid MD Unavailable Wednesday, Alma AQUINON Unavailable [phone] Jayne Del Valle RN Unavailable [phone] Merry Paz CAPSULE MAKER Unavailable Unavailable Encounter Details Date Type Department Care Team (Late st Contact Info) Description 02/15/2023 Abstract [facility] [address] [facility] 110 [place] [address] Malcolm Cid MD 112 [facility] 110 [place], [place] [address] Social History Tobacco Use Types Packs/Day Years [...] 08/07/2024 11:00 AM EDT Office Visit [facility] [address] [facility] 110 [place] [address] Marina Proctor PA [address] [facility] 110 [place] [address] documented as of this encounter Visit Diagnoses Not on filedocumented in this encounter Care Teams Renal Case Manager Relationship Specialty Start Date End Date Malcolm Cid MD [address] [facility] 110 [place] [address] PCP - General Family Medicine 07/29/22 Malcolm Cid MD [address] [place] [address] PCP - [facility] 05/30/22Wednesday, BREE Marquez [address] [place] [address] Licensed Practical Nurse Family Medicine 06/04/23 Jayne Del Valle, DELMIS Licensed Practical Nurse Family Medicine 04/07/2404/30 Merry Paz LPN 05/19/24 documented as of this encounter
--- OUTSIDE RECORDS SUMMARY | 2024-08-04 13:03 | XMS_ITS | Encounter Summary ---
Author Organization [facility] Address [address] [place] [address] Care Team Providers Care Consumer Loan Underwriter Name Role Phone Malcolm Cid MD Primary Care Provider [phone] Malcolm Cid MD Unavailable Wednesday, Alma AQUINON Unavailable [phone] Jayne Del Valle RN Unavailable Merry Paz KAI WHAKARURUHAU Unavailable Unavailable Encounter Details Date Type Department Care Team (Late st Contact Info) Description 02/09/2023 Abstract [facility] [address] [facility] 110 [place] [address] Malcolm Cid MD 112 [facility] 110 [place], [place] [address] Social History Tobacco Use Types Packs/Day Years [...] EDT Office Visit [facility] 112 [facility] 110 [place] [address] Marina Proctor PA [address] [facility] 110 [place] [address] documented as of this encounter Visit Diagnoses Not on filedocumented in this encounter Care Teams Consumer Loan Underwriter Relationship Specialty Start Date End Date Malcolm Cid MD [address] [facility] 110 [place] [address] PCP - General Family Medicine 07/29/22 Malcolm Cid MD [address] [facility] 110 [place] [address] PCP - [facility] 05/30/22Wednesday, BREE Marquez [address] [facility] 110 [place] [address] Licensed Practical Nurse Family Medicine 06/04/23 Jayne Del Valle, RN Licensed Practical Nurse Family Medicine 04/07/2404/30 Merry Paz LPN 05/19/24 documented as of this encounter
--- OUTSIDE RECORDS SUMMARY | 2024-08-04 13:03 | XMS_ITS | Encounter Summary ---
Author Organization [facility] Address [address] [place] [address] Care Team Providers Care Mail Agent Name Role Phone Malcolm Cid MD Primary Care Provider [phone] Source Comments In the event this information is protected by the Federal Confidentiality of Alcohol and Drug AbusePatient Records regulations: The Federal rules restrict any use of the information to criminally investigate or prosecute any alcohol or drug abuse patient.[facility] Encounter Details Date Type Department Care Team (Late st Contact Info) Description 12/02/2020 Patient Msg Rheumatology [address] [place], [place] [id number] [place] [address] [place] [address] Lab reminder Social History Tobacco Use Types Packs/Day Years Used Date Smoking Tobacco: Never Smokeless Tobacco: Current Chew PHQ-2 Answer Date Recorded PHQ-2 score 3 08/19/2020 Area Deprivation Index Answer Date Adis rded National Score (1-100), lower number is lower ri sk Not on file 02/05/2020 State Score (1-10), lower number is lower risk N ot on file 02/05/2020 Data from: https://www.neighborhoodatlas.[facility]/. Last address used for [...] 10/03/2024 8:00 AM EDT Office Visit Rheumatology [address] [place], [place] [address] [place] [address] [place], [place] [phone] Return in about 9 months (around 10/03/2024). documented as of this encounter Visit Diagnoses Not on filedocumented in this encounter Care Teams Mail Agent Relationship Specialty Start Date End Date Malcolm Cid MD PCP - General Family Medicine 01/07/15 documented as of this encounter
--- OUTSIDE RECORDS SUMMARY | 2024-08-04 13:03 | XMS_ITS | Encounter Summary ---
Author Organization [facility] Address [address] [place] [address] Care Team Providers Care Supervisor Brake Repair Name Role Phone Malcolm Cid MD Primary Care Provider [phone] Malcolm Cid MD Unavailable Wednesday, Alma AQUINON Unavailable [phone] Jayne Del Valle RN Unavailable Merry Paz INFLATED PAD BUFFER Unavailable Unavailable Encounter Details Date Type Department Care Team (Late st Contact Info) Description 01/11/2023 Abstract [facility] 112 [facility] 110 [place] [phone] Malcolm Cid MD 112 [facility] 110 [place], [place] [address] Social History Tobacco Use Types Packs/Day Years [...] EDT Office Visit [facility] 112 [facility] 110 [place] [address] Marina Proctor PA [address] [facility] [address] [place] [address] documented as of this encounter Visit Diagnoses Not on filedocumented in this encounter Care Teams Supervisor Brake Repair Relationship Specialty Start Date End Date Malcolm Cid MD [address] [facility] [address] [place] [address] PCP - General Family Medicine 07/29/22 Malcolm Cid MD [address] [facility] [address] [place] [address] PCP - [facility] 05/30/22Wednesday, BREE Marquez [address] [facility] 110 [place] [address] Licensed Practical Nurse Family Medicine 06/04/23 Jayne Del Valle, RN Licensed Practical Nurse Family Medicine 04/07/2404/30 Merry Paz LPN 05/19/24 documented as of this encounter
--- OUTSIDE RECORDS SUMMARY | 2024-08-04 13:03 | XMS_ITS | Encounter Summary ---
Author Organization [facility] Address [address] [place] [address] Care Team Providers Care Motel Maid Name Role Phone Malcolm Cid MD Primary Care Provider [phone] Malcolm Cid MD Unavailable Wednesday, Alma AQUINON Unavailable [phone] Jayne Del Valle RN Unavailable [phone] Merry Paz CONSTRUCTION TECH Unavailable Unavailable Encounter Details Date Type Department Care Team (Late st Contact Info) Description 02/15/2023 Orders Only [facility] [address] [facility] 110 [place] [address] A, Unknown Practice [address] [place] [address] Social History Tobacco Use Types Packs/Day Years [...] 08/07/2024 11:00 AM EDT Office Visit [facility] 112 [facility] 110 [place] [address] Marina Proctor PA [address] [facility] 110 [place] [address] documented as of this encounter Procedures Procedure [...] on filedocumented in this encounter Care Teams Motel Maid Relationship Specialty Start Date End Date Malcolm Cid MD [address] [facility] 110 [place] [address] PCP - General Family Medicine 07/29/22 Malcolm Cid MD [address] [facility] 110 [place] [address] PCP - [facility] 05/30/22Wednesday, BREE Marquez [address] [place] [address] Licensed Practical Nurse Family Medicine 06/04/23 Jayne Del Valle, RN Licensed Practical Nurse Family Medicine 04/07/2404/30 Merry Paz LPN 05/19/24 documented as of this encounter
--- OUTSIDE RECORDS SUMMARY | 2024-08-04 13:03 | XMS_ITS | Encounter Summary ---
Author Organization [facility] Address [address] [place] [address] Care Team Providers Care Electrolysis Operator Name Role Phone Malcolm Cid MD Primary Care Provider [phone] Source Comments In the event this information is protected by the Federal Confidentiality of Alcohol and Drug AbusePatient Records regulations: The Federal rules restrict any use of the information to criminally investigate or prosecute any alcohol or drug abuse patient.[facility] Encounter Details Date Type Department Care Team (Late st Contact Info) Description 09/15/2021 Patient Msg Rheumatology [address] [place], [place] [id number] [place] [address] [place] [address] Lab results/orders Social History Tobacco Use Types Packs/Day Years Used Date Smoking Tobacco: Never Smokeless Tobacco: Current Chew PHQ-2 Answer Date Recorded PHQ-2 score 3 08/19/2020 Area Deprivation Index Answer Date Adis rded National Score (1-100), lower number is lower ri sk Not on file 02/05/2020 State Score (1-10), lower number is lower risk N ot on file 02/05/2020 Data from: https://www.neighborhoodatlas.[facility]/. Last address used for calculation [...] 10/03/2024 8:00 AM EDT Office Visit Rheumatology [address] [place], [place] [address] [place] [address] [place], [place] [address] Return in about 9 months (around 10/03/2024). documented as of this encounter Visit Diagnoses Not on filedocumented in this encounter Care Teams Electrolysis Operator Relationship Specialty Start Date End Date Malcolm Cid MD PCP - General Family Medicine 01/07/15 documented as of this encounter
--- OUTSIDE RECORDS SUMMARY | 2024-08-04 13:03 | XMS_ITS | Encounter Summary ---
Author Organization [facility] Address [address] [place] [address] Care Team Providers Care Master Fire Control Technician Name Role Phone Malcolm Cid MD Primary Care Provider [phone] Malcolm Cid MD Unavailable Wednesday, Alma AQUINON Unavailable [phone] Jayne Del Valle RN Unavailable Merry Paz TRIP RIDER Unavailable Unavailable Encounter Details Date Type Department Care Team (Late st Contact Info) Description 02/16/2023 Abstract [facility] [address] [facility] 110 [place] [address] Malcolm Cid MD 112 [facility] 110 [place], [place] [address] Social History Tobacco Use Types Packs/Day Years [...] AM EDT Office Visit [facility] [address] [facility] 110 [place] [address] Marina Proctor PA [address] [facility] 110 [place] [address] documented as of this encounter Visit Diagnoses Not on filedocumented in this encounter Care Teams Master Fire Control Technician Relationship Specialty Start Date End Date Malcolm Cid MD [address] [facility] 110 [place] [address] PCP - General Family Medicine 07/29/22 Malcolm Cid MD [address] [facility] 110 [place] [address] PCP - [facility] 05/30/22Wednesday, BREE Marquez [address] [place] [address] Licensed Practical Nurse Family Medicine 06/04/23 Jayne Del Valle, DELMIS Licensed Practical Nurse Family Medicine 04/07/2404/30 Merry Paz LPN 05/19/24 documented as of this encounter
--- OUTSIDE RECORDS SUMMARY | 2024-08-04 13:03 | XMS_ITS | Encounter Summary ---
Author Organization [facility] Address [address] [place] [address] Care Team Providers Care Electrician Rectifier Maintenance Name Role Phone Malcolm Cid MD Primary Care Provider [phone] Malcolm Cid MD Unavailable Wednesday, Alma AQUINON Unavailable [phone] Jayne Del Valle RN Unavailable [phone] Merry Paz LPN Unavailable Unavailable Encounter [...] care, and heating? Not very hard 10/10/2023 [facility] of Occupat ional Health [...] in the past 12 m [facility], were you homeless or [...] EDT Office Visit [facility] 112 [facility] 110 [place] [address] Marina Proctor PA 112 [facility] 110 [place] [address] documented as of this encounter Procedures Procedure [...] similar to 05/04/2017. Mild right knee osteoarthritis. Tennis Centre Manager: PSCB Transcribe Date/Time: Jan 04 2024 12:48P Dictated by : CHELSEA REEVES MD This examination was interpreted and the report reviewed and electronically signed by: CHELSEA REEVES MD on Jan 04 2024 1:21PM EST [id number]^SI^ACN Procedure Note Radiology, Radiologist, - 01/04/2024 * [...] similar to 05/04/2017. Mild right knee osteoarthritis. Tennis Centre Manager: PSCB Transcribe Date/Time: Jan 04 2024 12:48P Dictated by : CHELSEA REEVES MD This examination was interpreted and the report reviewed and electronically signed by: CHELSEA REEVES MD on Jan 04 2024 1:21PM EST [id number]^SI^ACN Generic External Data Provider [facility] Final Result documented in this encounter Visit Diagnoses Not on filedocumented in this encounter Care Teams Electrician Rectifier Maintenance Relationship Specialty Start Date End Date Malcolm Cid MD [address] [facility] 110 [place] [address] PCP - General Family Medicine 07/29/22 Malcolm Cid MD [address] [facility] 110 [place] [address] PCP - [facility] 05/30/22Wednesday, BREE Marquez 112 [place] [address] Licensed Practical Nurse Family Medicine 06/04/23 Jayne Del Valle, DELMIS Licensed Practical Nurse Family Medicine 04/07/2404/30 Merry Paz LPN 05/19/24 documented as of this encounter
--- OUTSIDE RECORDS SUMMARY | 2024-08-04 13:03 | XMS_ITS | Encounter Summary ---
Author Organization [facility] Address [address] [place] [address] Care Team Providers Care Talent Acquisition Associate Name Role Phone Malcolm Cid MD Primary Care Provider [phone] Malcolm Cid MD Unavailable Wednesday, Alma AQUINON Unavailable [phone] Jayne Del Valle RN Unavailable Merry Paz HEEL SEAT LASTER Unavailable Unavailable Encounter Details Date Type Department Care Team (Late st Contact Info) Description 01/11/2023 Abstract [facility] [address] [facility] 110 [place] [address] Malcolm Cid MD 112 [facility] 110 [place], [place] [address] Social History Tobacco Use Types Packs/Day Years [...] EDT Office Visit [facility] 112 [facility] 110 [place] [address] Marina Proctor PA 112 [place] [facility] 110 [place] [address] documented as of this encounter Visit Diagnoses Not on filedocumented in this encounter Care Teams Talent Acquisition Associate Relationship Specialty Start Date End Date Malcolm Cid MD [address] [facility] 110 [place] [address] PCP - General Family Medicine 07/29/22 Malcolm Cid MD [address] [facility] 110 [place] [address] PCP - [facility] 05/30/22Wednesday, BREE Marquez [address] [facility] 110 [place] [address] Licensed Practical Nurse Family Medicine 06/04/23 Jayne Del Valle, RN Licensed Practical Nurse Family Medicine 04/07/2404/30 Merry Paz LPN 05/19/24 documented as of this encounter
--- OUTSIDE RECORDS SUMMARY | 2024-08-04 13:03 | XMS_ITS | Encounter Summary ---
Author Organization [facility] Address [address] [place] [address] Care Team Providers Care Time Motion Analyst Name Role Phone Malcolm Cid MD Primary Care Provider [phone] Malcolm Cid MD Unavailable Wednesday, Alma AQUINON Unavailable [phone] Jayne Del Valle RN Unavailable Merry Paz GEM CARVER Unavailable Unavailable Encounter Details Date Type Department Care Team (Late st Contact Info) Description 01/20/2023 Abstract [facility] [address] [facility] 110 [place] [address] Malcolm Cid MD 112 [facility] 110 [place], [place] [address] Social History Tobacco Use Types Packs/Day Years [...] Office Visit [facility] 112 [facility] 110 [place] [address] Marina Proctor PA [address] [facility] 110 [place] [address] documented as of this encounter Visit Diagnoses Not on filedocumented in this encounter Care Teams Time Motion Analyst Relationship Specialty Start Date End Date Malcolm Cid MD [address] [facility] 110 [place] [address] PCP - General Family Medicine 07/29/22 Malcolm Cid MD [address] [facility] 110 [place] [address] PCP - [facility] 05/30/22Wednesday, BREE Marquez [address] [facility] 110 [place] [address] Licensed Practical Nurse Family Medicine 06/04/23 Jayne Del Valle, RN Licensed Practical Nurse Family Medicine 04/07/2404/30 Merry Paz LPN 05/19/24 documented as of this encounter
--- OUTSIDE RECORDS SUMMARY | 2024-08-04 13:04 | XMS_ITS | Encounter Summary ---
Author Organization [facility] Address [address] [place] [address] Care Team Providers Care Tablet Repair Name Role Phone Malcolm Cid MD Primary Care Provider [phone] Malcolm Cid MD Unavailable Jayne Del Valle RN Unavailable [phone] Merry Paz LPN Unavailable Unavailable Encounter Details Date Type Department Care Team (Late st Contact Info) Description 05/18/2024 Abstract [facility] 112 [facility] 110 [place] [address] Malcolm Cid MD 112 [facility] 110 [place] [address] Social History Tobacco Use Types [...] Questionnaire-2 Score 0 05/18/2024 [facility] [place] of Occupat ional Health - Occupational [...] time in the past 12 m [facility], were you homeless or living in a [...] CI FM [address] [facility] 110 [place] [address] Marina Proctor PA [address] [facility] [address] [place] [address] documented as of this encounter Visit Diagnoses Not on filedocumented in this encounter Care Teams Tablet Repair Relationship Specialty Start Date End Date Malcolm Cid MD [address] [facility] 110 [place] [address] PCP - General Family Medicine 07/29/22 Malcolm Cid MD [address] [facility] 110 [place] [address] PCP - [facility] 05/30/22 Jayne Del Valle, RN Licensed Practical Nurse Family Medicine 04/07/2404/30 Merry Paz LPN 05/19/24 documented as of this encounter
--- OUTSIDE RECORDS SUMMARY | 2024-08-04 13:04 | XMS_ITS | Encounter Summary ---
Author Organization [facility] Address [address] [place] [address] Care Team Providers Care Room Maid Name Role Phone Malcolm Cid MD Primary Care Provider [phone] Malcolm Cid MD Unavailable Merry Pza LPN Unavailable Unavailable Reason for Visit * Reason Onset Date Comments Med Refill 06/26/2024 Encounter Details Date Type Department Care Team (Late st Contact Info) Description 06/26/2024 Refill [facility] [address] [facility] 110 [place] [address] Marina Proctor, PA [address] [facility] 110 [place], [place] [address] Rheumatoid arthritis involving multiple sites with positive [...] Questionnaire-2 Score 0 05/18/2024 [facility] [place] of Occupat ional Health - Occupational Stress [...] any time in the past 12 m [facility], were you homeless or living [...] pain, I would recommend he see a Brake Operator to discuss treatment options for the Rheumatoid [...] [facility] 110 [place] [address] Marina Proctor PA [address] [facility] 110 [place] [address] documented as of this encounter Visit Diagnoses Diagnosis Rheumatoid arthritis involving multiple sites with positive rheumatoid factor (CMS/[facility]) documented in this encounter Care Teams Room Maid Relationship Specialty Start Date End Date Malcolm Cid MD [address] [facility] 110 [place] [address] PCP - General Family Medicine 07/29/22 Malcolm Cid MD [address] [facility] 110 [place] [address] PCP - [facility] 05/30/22 Merry Paz LPN 05/19/24 documented as of this encounter
--- OUTSIDE RECORDS SUMMARY | 2024-08-04 13:04 | XMS_ITS | Encounter Summary ---
Author Organization [facility] Address [address] [place] [address] Care Team Providers Care Corn Crop Supervisor Name Role Phone Malcolm Cid MD Primary Care Provider [phone] Malcolm Cid MD Unavailable Wednesday, Alma AQUINON Unavailable [phone] Jayne Del Valle RN Unavailable Merry Paz FOOD [employer]INK FACTORY WORKERS Unavailable Unavailable Encounter Details Date Type Department Care Team (Late st Contact Info) Description 01/04/2024 Abstract [facility] [address] [facility] 110 [place] [address] Malcolm Cid MD 112 [facility] 110 [place], [place] [address] Social History Tobacco Use Types Packs/Day Years [...] week 10/10/2023 How often do you attend [facility] or muslim services? More than 4 times [...] care, and heating? Not very hard 10/10/2023 [facility] [place] of Occupat ional Health - Occupational Stress [...] [address] [place] [address] [place] [address] Marina Proctor, PA [address] [facility] [address] [place] [address] documented as of this encounter Visit Diagnoses Not on filedocumented in this encounter Care Teams Corn Crop Supervisor Relationship Specialty Start Date End Date Malcolm Cid MD [address] [facility] 110 [place] [address] PCP - General Family Medicine 07/29/22 Malcolm Cid MD [address] [facility] 110 [place] [address] PCP - [facility] 05/30/22Wednesday, BREE Marquez [address] [facility] 110 [place] [address] Licensed Practical Nurse Family Medicine 06/04/23 Jayne Del Valle, RN Licensed Practical Nurse Family Medicine 04/07/2404/30 Merry Paz LPN 05/19/24 documented as of this encounter
--- OUTSIDE RECORDS SUMMARY | 2024-08-04 13:04 | XMS_ITS | Encounter Summary ---
Author Organization [facility] Address [address] [place] [address] Care Team Providers Care Fur Sewer Name Role Phone Malcolm Cid MD Primary Care Provider [phone] Malcolm Cid MD Unavailable Merry Paz LPN Unavailable Unavailable Reason for Visit * Reason Onset Date Comments Med Refill 07/26/2024 Encounter Details Date Type Department Care Team (Late st Contact Info) Description 07/26/2024 Refill [facility] [address] [place] [address] Nikky Jacobson Rheumatoid arthritis involving multiple sites with positive rheumatoid factor ([facility]) Social History Tobacco Use Types [...] Recorded Patient Health Questionnaire-2 Score 0 05/18/2024 [facility] of Occupat ional Health - Occupational Stress [...] any time in the past 12 m [facility], were you homeless or living [...] Office Visit [facility] [address] [facility] 110 [place] [address] Marina Proctor PA [address] [place] [facility] 110 [place] [address] documented as of this encounter Visit Diagnoses Diagnosis Rheumatoid arthritis involving multiple sites with positive rheumatoid factor (CMS/[facility]) documented in this encounter Care Teams Fur Sewer Relationship Specialty Start Date End Date Malcolm Cid MD [address] [place] [facility] 110 [place] [address] PCP - General Family Medicine 07/29/22 Malcolm Cid MD [address] [place] [facility] 110 [place] [address] PCP - [facility] 05/30/22 Merry Paz LPN 05/19/24 documented as of this encounter
--- OUTSIDE RECORDS SUMMARY | 2024-08-04 13:04 | XMS_ITS | Encounter Summary ---
Author Organization [facility] Address [address] [place] [address] Care Team Providers Care Unix Analyst Name Role Phone Malcolm Cid MD Primary Care Provider [phone] Malcolm Cid MD Unavailable Jayne Del Valle RN Unavailable [phone] Merry Paz LPN Unavailable Unavailable Encounter Details Date Type Department Care Team (Late st Contact Info) Description 05/18/2024 Abstract [facility] 112 [facility] 110 [place] [id number] Malcolm Cid MD 112 [facility] 110 [place] [address] Social History Tobacco Use Types [...] Recorded Patient Health Questionnaire-2 Score 0 05/18/2024 [facility] [place] of Occupat ional Health - Occupational Stress [...] time in the past 12 m [facility], were you homeless or living in [...] Visit [facility] [address] [facility] [address] [place] [address] Marina Proctor PA [address] [facility] [address] [place] [address] documented as of this encounter Visit Diagnoses Not on filedocumented in this encounter Care Teams Unix Analyst Relationship Specialty Start Date End Date Malcolm Cid MD [address] [facility] [address] [place] [address] PCP - General Family Medicine 07/29/22 Malcolm Cid MD [address] [facility] [address] [place] [address] PCP - [facility] 05/30/22 Jayne Del Valle, RN Licensed Practical Nurse Family Medicine 04/07/2404/30 Merry Paz LPN 05/19/24 documented as of this encounter
--- OUTSIDE RECORDS SUMMARY | 2024-08-04 13:04 | XMS_ITS | Clinical Summary ---
Author Organization [facility] Address [address] [place] [address] Care Team Providers Care Office Machines Wirer Name Role Phone Malcolm Cid MD Primary Care Provider [phone] Malcolm Cid MD Unavailable Merry Paz LPN [...] tablet 025 2024 Discontinued(R eorder) HYDROcodone-nitza taminophen ([place]) 5-325 MG tabletIndicatio ns: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) Take 1 tablet by mouth every 12 (twelve) hours if needed for severe pain for up to 5 days 10 tablet 025 2024 Discontinued(R eorder) HYDROcodone-nitza taminophen ([place]) 5-325 MG tabletIndicatio ns: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) Take 1 tablet by mouth Daily as needed for severe pain for up to 5 days 5 tablet 025 2024 methylPREDNISol one (Medrol Dospak) 4 MG tabletsIndicati ons:Rheumatoid arthritis involving multiple sites with positive rheumatoid factor ([facility]) Follow schedule on package instructions 21 tablet [...] Care Team Description 08/01/2024 Patient Outreach [facility] [address] [place] [address] Jayne Del Valle RN 08/01/2024 Refill [facility] [address] [facility] [address] [place] [address] Malcolm Cid MD Essential hypertension (CMS/HCC) 07/30/2024 Clinisync Result Encounter [facility] External Department Unsolicited Provider, Generic External Data 07/29/2024 Clinisync Result Encounter [facility]OM[facility] External Department Unsolicited Provider, Generic External Data 07/26/2024 Refill [facility] [address] [place] [address] Nikky Jacobson 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) 07/26/2024 Refill [facility] [address] [facility] [address] [place] [address] Marina Proctor PA 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) 07/20/2024 Refill [facility] [address] [facility] [address] [place] [address] Marina Proctor PA 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) 07/11/2024 Refill [facility] [address] [facility] [address] [place] [address] Marina Proctor PA 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) 07/07/2024 Refill [facility] [address] [facility] [address] [place] [address] Marina Proctor PA 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) 07/03/2024 Refill [facility] [address] [facility] [address] [place] [address] Marina Proctor PA Rheumatoid arthritis involving multiple sites with positive rheumatoid factor ([facility]/HCC) 06/28/2024 Patient Outreach [facility] [address] [place] [address] ColverMerry, [facility] 06/28/2024 Refill [facility] [address] [facility] [address] [place] [address] Malcolm Cid MD Rheumatoid arthritis involving multiple sites with positive rheumatoid factor ([facility]) 06/27/2024 Telephone [facility] [address] [place] [address] Colver[employer]erry [facility] 06/27/2024 Patient Outreach [facility] [address] [place] [address] Paz[employer]erry [facility] 06/26/2024 Abstract [facility] [address] [place] [address] Colver Merry, [facility] 06/26/2024 [facility] [address] [place] [address] Marina Proctor PA Rheumatoid arthritis involving multiple sites with positive rheumatoid factor ([facility]) 06/26/2024 Telephone [facility] [address] [place] [address] [place] [address] Malcolm Cid MD Med Refill 06/26/2024 Refill [facility] [address] [facility] [address] [place] [address] Marina Proctor PA Rheumatoid arthritis involving multiple sites with positive rheumatoid factor ([facility]/HCC) 06/20/2024 Patient Outreach [facility] [address] [place] [address] PazMerry, TEXTILE COLORIST FORMULATOR 06/19/2024 Refill [facility] [address] [facility] [address] [place] [address] Marina Proctor PA 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) 06/12/2024 Refill [facility] [address] [facility] [address] [place] [address] Marina Proctor PA 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) 06/05/2024 Refill [facility] [address] [facility] [address] [place] [address] Marina Proctor PA 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) 06/05/2024 Refill [facility] [address] [facility] [address] [place] [address] Malcolm Cid MD Other chronic pain 05/30/2024 Refill [facility] [address] [email or web address] [address] [place] [address] Malcolm Cid MD 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) 05/29/2024 Refill [facility] [address] [email or web address] [address] [place] [address] Marina Proctor PA 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) 05/23/2024 Refill [facility] [address] [place] [address] [place] [address] Marina Proctor PA 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) 05/18/2024 9:00 AM EDT Office Visit [facility] [address] [facility] [address] [place] [address] Marina Proctor PA 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); 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); Anemia, unspecified type; Toe joint pain, left 05/18/2024 Abstract [facility] [address] [facility] [address] [place] [address] Malcolm Cid MD 05/18/2024 Abstract [facility] [address] [place] [address] [place] [address] Malcolm Cid MD 05/18/2024 Clinisync Result Encounter [facility] External Department Unsolicited Marina Proctor PA 05/18/2024 Bamboo flowsheet [facility] [address] [facility] [[email or web address] [address] [place] [address] Marina Proctor PA 05/18/2024 Travel 05/16/2024 Refill [facility] [address] [facility] [[email or web address] [address] [place] [address] Marina Proctor PA Abscess of right index finger 05/16/2024 Refill [facility] [address] [place] [address] Malcolm Cid MD Rheumatoid arthritis involving multiple sites with positive rheumatoid factor ([facility]) 05/10/2024 Refill [facility] [address] [email or web address] [address] [place] [address] Marina Proctor PA Abscess of right index [...] any time in the past 12 m [facility], were you homeless or living [...] 08/07/2024 11:00 AM EDT Office Visit [facility] 112 [facility] 110 [place] [address] Marina Proctor PA 112 [facility] 110 [place] [address] Health Maintenance Due Date Last Done Comments [...] SALMONELLA/SH IGELLA SCREEN Salmonella/Natty gella Screen [facility] SALMONELLA/SH IGELLA SCREEN Specimen has been received and testing has been initiated. [facility] SALMONELLA/SH IGELLA SCREEN [facility] SALMONELLA/SH IGELLA SCREEN No Salmonella or Shigella recovered. [facility] 07/30/2024 3:45 PM EDT 07/30/2024 3:48 PM EDT Narrative KETTY - 08/03/2024 1:10 PM EDT Generic External Data Provider LAB BLOOD ORDERAB LES Final Result [facility] * E COLI SHIGA TOXIN EIA (07/30/2024 3:45 PM EDT) E COLI SHIGA TOXIN EIA E coli Shiga Toxin EIA WILL FOLLOW [facility] E COLI SHIGA TOXIN EIA Negative [facility] E COLI SHIGA TOXIN EIA [facility]formed at[facility] E COLI SHIGA TOXIN EIA [address] [place], [place] [id number] [facility] E COLI SHIGA TOXIN EIA Robotics Technologist: Surinder Torres PhD, Phone: [phone] [facility] 07/30/2024 3:45 PM EDT 07/30/2024 3:48 PM EDT Narrative CLINIS[facility]NC - 08/03/2024 1:10 PM EDT us Generic External Data Provider LAB BLOOD ORDERAB LES Final Result Performing Organization Address [facility] Co de Phone Number [facility] TB * (ABNORMAL) ALL URIC ACID (05/18/2024 9:47 AM EDT) Pathologist [facility] URIC ACID 9.2(H) 3.5 - 7.2 mg/dL TB 05/18/2024 9:47 AM EDT 05/18/2024 9:50 AM EDT Narrative CLINISYNC - 05/18/2024 10:51 AM EDT us Marina MARINELLI CLINISYNC Final Result Performing Organization Address [facility] de Phone Number CLINISYNC TB * (ABNORMAL) ALL SED RATE (05/18/2024 9:47 AM EDT) Pathologist [facility] SED RATE 31(H) <=15 mm/hr [facility] 05/18/2024 9:47 AM EDT 05/18/2024 9:50 AM EDT Narrative CLINISYNC - 05/18/2024 11:06 AM EDT us Marina MARINELLI CLINISYNC Final Result Performing Organization Address [facility] de Phone Number CL[facility] TB * (ABNORMAL) ALL CBC WITH AUTO DIFF (05/18/2024 9:47 AM EDT) Pathologist [facility] TB WBC 8.4 4.0 - 11.0 10 [...] EDT Marina HDEZ Final Result [facility] * ALL C REACTIVE PROTEIN (05/18/2024 9:47 AM EDT) C REACTIVE PROTEIN <0.50 <=0.50 mg/dL [facility] 05/18/2024 9:47 AM EDT 05/18/2024 9:50 AM EDT Narrative CLINISYNC - 05/18/2024 10:51 AM EDT us Marina HDEZ Final Result [facility] from Last 3 Months Insurance [employer] Care Teams Office Machines Wirer Relationship Specialty Start Date End Date Malcolm Cid MD [address] [facility] 110 [place] [address] PCP - General Family Medicine 07/29/22 Malcolm Cid MD [address] [facility] 110 [place] [address] PCP - [facility] LOAD BLOCKER 05/30/22 Merry Paz LPN 05/19/24
--- OUTSIDE RECORDS SUMMARY | 2024-08-04 13:04 | XMS_ITS | Encounter Summary ---
Author Organization [facility] Address [address] [place] [address] Care Team Providers Care Chief Analytics Officer Name Role Phone Malcolm Cid MD Primary Care Provider Malcolm Cid MD Unavailable Merry Paz LPN Unavailable Unavailable Reason for Visit * Reason Onset Date Comments Med Refill 07/26/2024 Encounter Details Date Type Department Care Team (Late st Contact Info) Description 07/26/2024 Refill [facility] [address] [facility] 110 [place] [address] Marina Proctor, PA 112 [facility] 110 [place], [place] [id number] Rheumatoid arthritis involving multiple sites with positive [...] Recorded Patient Health Questionnaire-2 Score 0 05/18/2024 [facility] [place] of Occupat ional Health - Occupational Stress [...] in the past 12 m [facility], were you homeless or living [...] Visit [facility] [address] [facility] [address] [place] [address] Marina Proctor PA [address] [facility] [address] [place] [address] documented as of this encounter Visit Diagnoses Diagnosis Rheumatoid arthritis involving multiple sites with positive rheumatoid factor (CMS/[facility]) documented in this encounter Care Teams Chief Analytics Officer Relationship Specialty Start Date End Date Malcolm Cid MD [address] 110 [place] [address] PCP - General Family Medicine 07/29/22 Malcolm Cid MD [address] [facility] [address] [place] [address] PCP - [facility] 05/30/22 Merry Paz LPN 05/19/24 documented as of this encounter
--- OUTSIDE RECORDS SUMMARY | 2024-08-04 13:04 | XMS_ITS | Encounter Summary ---
Author Organization [facility] Address [address] [place] [address] Care Team Providers Care Valve Steamer Name Role Phone Malcolm Cid MD Primary Care Provider [phone] Malcolm Cid MD Unavailable Merry Paz LPN Unavailable Unavailable Encounter Details Date Type Department Care Team (Late st Contact Info) Description 06/26/2024 Abstract [facility] [address] [place] [address] Merry Paz LPN Social History Tobacco Use [...] Recorded Patient Health Questionnaire-2 Score 0 05/18/2024 [facility] [place] of Occupat ional Health - Occupational Stress [...] any time in the past 12 m [facility], were you homeless or living in [...] 08/07/2024 11:00 AM EDT Office Visit [facility] 112 [facility] 110 [place] [address] Marina Proctor PA [address] [place] [address] [address] documented as of this encounter Visit Diagnoses Not on filedocumented in this encounter Care Teams Valve Steamer Relationship Specialty Start Date End Date Malcolm Cid MD [address] [address] [address] PCP - General Family Medicine 07/29/22 Malcolm Cid MD [address] [address] PCP - [facility] 05/30/22 Merry Paz LPN 05/19/24 documented as of this encounter
== END 2024-07-31 10:09 | disposition home or self-care (01) ==
LOC: ER 22:36 → MS 07-30 10:33
PROVIDERS: Registered Nurse; Admitting Provider Family Medicine; Emergency Provider Emergency Medicine; PCP Family Medicine; Visit Provider Family Medicine
DX: M06.9 Rheumatoid arthritis, unspecified (principal); I10 Essential (primary) hypertension; E87.1 Hypo-osmolality and hyponatremia; R73.9 Hyperglycemia, unspecified; T38.0X5A Adverse effect of glucocorticoids and synthetic analogues, initial encounter; F17.220 Nicotine dependence, chewing tobacco, uncomplicated; Z79.899 Other long term (current) drug therapy; F41.1 Generalized anxiety disorder; M1A.9XX1 Chronic gout, unspecified, with tophus (tophi); M25.50 Pain in unspecified joint; R50.9 Fever, unspecified; K52.9 Noninfective gastroenteritis and colitis, unspecified; Z96.659 Presence of unspecified artificial knee joint
CPT/HCPCS: 36415; 80048; 80053; 83605; 84550; 85007; 85025; 85027; 85652; 86140; 87040; 87045; 87046; 87427; 87493; 96374; 96375; 96376; 99285; G0378; J1100; J1171; J1885; J2405; J2919

== ENCOUNTER 2024-09-05 17:04 | Emergency (ER) | payer OTHER, SELFPAY ==
--- OUTSIDE RECORDS SUMMARY | 2023-03-22 07:30 | XMS_ITS ---
Author Organization [facility] Address [address] [place] [address] Care Team Providers Care Activity Therapy Specialist Name Role Phone Palak CABRAL, Malcolm Primary Care Provider Juan José Casey Unavailable [phone] REASON FOR VISIT Right knee bwc Medications Medication SIG (Take, Route, Frequency, Duration) Notes Start Date End Date Status gabapentin Active oxyCODONE Active traMADol Active ALPRAZolam Active doxycycline Active QUEtiapine Active escitalopram Active colchicine Active Encounters Encounter Location Date Provider Diagnosis [facility] Office [address] [place] [address] [place] [address] 03/22/2023 Juan José Coffman Plan Of Treatment No Information Progress Notes * TRU CARDOZA MDOB:1989 (34 yo M)Acc No.[id number]:03/22/2023 Patient: Kahlil CHANTELLTANTRU Guillory Provider: Hellen Coffman MD :1990 A ge:33 Y S ex:Male Date:03/22/2023 [facility] Pcp:Malcolm Cid MD Subjective: * Chief Complaints: * 1 . Right knee bwc. * Medical History: * Medications: T aking escitalopram , Taking colchicine , Taking QUEtiapine , Taking traMADol , Taking gabapentin , Taking oxyCODONE , Taking doxycycline , Taking ALPRAZolam Objective: * Vitals: Assessment: Plan: * Treatment: Forms: * Images: * Electronic signature of Theodore Coffman MD on 09/05/2024 at 05:30 PM EDT Sign off status: Pending * Provider: Hellen Coffman MD Date: 0 03/22/2023 Generated for Justo rodrigez/Mateo/Annetta on: 0 09/05/2024 05:30 PM EDT
[2024-09-05 17:07] VITALS: BP 140/60; PULSE 88; TEMP 37.3; O2SAT 98; BMI 27.0
--- NOTE | 2024-09-05 17:12 | XR_ITS ---
The [address] [address] Patient Name: TRU CARDOZA MRN: [id number] date: 1990 Sex: M Assigned Patient Location: ED.MAIN Current Patient Location: ED.MAIN Accession/Order Number: [id number] Exam Date: 09/05/2024 18:19 Report Date: 09/05/2024 18:22 At the request of: ANABELLA ARRIAZA NP Procedure: XR tibia fibula LT 2V Left TIBIA AND FIBULA - - 2 views CLINICAL HISTORY: puncture wound, r/o fx and fb COMPARISON: None FINDINGS: No fracture or dislocation. Focal soft tissue injury identified. No radiopaque foreign body. XR/XR tibia fibula LT 2V IMPRESSION: No fracture. No radiopaque foreign body. Impression dictated by: Babar Wallace M.D. 09/05/2024 6:22 PM Dictation Location: [place] [address] Electronically authenticated by: [id number] Y Date: 09/05/2024 18:22
--- NOTE | 2024-09-05 17:13 | ED.GENADUL1 ---
HPI HPI - General Adult General Chief complaint: Wound/Laceration Stated complaint: LACERATION Time Seen by Provider: 09/05/24 17:06 Source: patient Mode of arrival: walk-in Limitations: no limitations History of Present Illness HPI narrative: Patient is a 34-year-old male who presents to the emergency department today for evaluation concerns for a laceration to his left leg. He endorses he was cutting some bushes and the hedge tremors subsequently fell and hit anterior aspect of his left lower leg. He endorses more of a puncture like wound. His last tetanus was within the last 10 years. No. History, he was able to movement to the effected extremity. Related Data Home Medications ?Medication ?Instructions ?Recorded ?Confirmed amlodipine 10 mg tablet 10 mg PO QDAY 08/31/22 09/05/24 clonidine HCl 0.1 mg tablet 0.1 mg PO BID 08/31/22 09/05/24 colchicine 0.6 mg tablet 0.6 mg PO .every other 08/31/22 09/05/24 gabapentin 300 mg capsule 300 mg PO TID 02/15/23 09/05/24 (Neurontin) allopurinol 300 mg tablet 800 mg PO .evening 06/03/23 09/05/24 hydrocodone 5 mg-acetaminophen 325 tab 09/05/24 mg tablet Allergies Allergy/AdvReac Type Severity Reaction Status Date / Time No Known Drug Allergies Allergy Verified 09/05/24 17:13 Opioid HPI Opioid Management Most Recent Opioid Data: Last Pain Scale 7 Today, 17:07 Last ORT Total Score 4 07/29/24, 23:43 Last ORT Risk Category Moderate Risk 07/29/24, 23:43 Ur Phencyclidine Scrn, (NEGATIVE) Negative 06/02/23, 22:15 Review of Systems ROS Status of ROS 10 or more systems reviewed and unremarkable except as noted in history and below PFSH PFSH Medical History Hyperglycemia, drug-induced ?R73.9 - Hyperglycemia, unspecified (ICD-10) ?T50.905A - Adverse effect of unspecified drugs, medicaments and biological substances, initial encounter (ICD-10) Intractable pain ?R52 - Pain, unspecified (ICD-10) Polyarthralgia ?M25.50 - Pain in unspecified joint (ICD-10) Rheumatoid arthritis flare ?M06.9 - Rheumatoid arthritis, unspecified (ICD-10) Gout, arthritis ?M10.9 - Gout, unspecified (ICD-10) Acute hypernatremia ?E87.0 - Hyperosmolality and hypernatremia (ICD-10) Altered mental status ?R41.82 - Altered mental status, unspecified (ICD-10) Sepsis ?A41.9 - Sepsis, unspecified organism (ICD-10) Acute kidney injury ?N17.9 - Acute kidney failure, unspecified (ICD-10) MONO (generalized anxiety disorder) ?F41.1 - Generalized anxiety disorder (ICD-10) Rheumatoid arthritis ?M06.9 - Rheumatoid arthritis, unspecified (ICD-10) Benign essential hypertension ?I10 - Essential (primary) hypertension (ICD-10) Gouty arthritis ?M10.9 - Gout, unspecified (ICD-10) Acute postoperative pain of knee ?G89.18 - Other acute postprocedural pain (ICD-10) ?M25.569 - Pain in unspecified knee (ICD-10) Visit for wound check ?Z51.89 - Encounter for other specified aftercare (ICD-10) Septic prepatellar bursitis of right knee ?M71.161 - Other infective bursitis, right knee (ICD-10) Acute viral syndrome ?B34.9 - Viral infection, unspecified (ICD-10) Diarrhea ?R19.7 - Diarrhea, unspecified (ICD-10) Rheumatoid arthritis flare ?M06.9 - Rheumatoid arthritis, unspecified (ICD-10) Polyarthralgia ?M25.50 - Pain in unspecified joint (ICD-10) Rheumatoid arthritis flare ?M06.9 - Rheumatoid arthritis, unspecified (ICD-10) Weakness ?R53.1 - Weakness (ICD-10) Mild shortness of breath ?R06.02 - Shortness of breath (ICD-10) Headache ?R51.9 - Headache, unspecified (ICD-10) Polyarthralgia ?M25.50 - Pain in unspecified joint (ICD-10) Flare of rheumatoid arthritis ?M06.9 - Rheumatoid arthritis, unspecified (ICD-10) Arthralgia ?M25.50 - Pain in unspecified joint (ICD-10) Drug-seeking behavior ?Z76.5 - Malingerer [conscious simulation] (ICD-10) Surgical History Total knee replacement status ?Z96.659 - Presence of unspecified artificial knee joint (ICD-10) H/O shoulder surgery ?Z98.890 - Other specified postprocedural states (ICD-10) Family History (Updated 07/29/24 @ 23:56 by Kyra Vega, DELMIS) Father Family history of hypertension Social History (Updated 07/29/24 @ 23:57 by Kyra Vega RN) Within the past year, how often did you have a drink containing alcohol: monthly or less Smoking status: Never smoker Nicotine containing products detail: chew tobacco Non-prescribed substance use: denies use Known occupational exposures/hazards: No Highest level of school completed/degree received: Associate degree: academic program Are you now , , , , never or living with a partner: In a typical week, how many times do you talk on the telephone with family, friends, or neighbors: 3 or more times per week How often do you get together with friends or relatives: 3 or more times per week Little interest or pleasure in doing things: not at all Feeling down, depressed, or hopeless: not at all Feel stressed/tense/nervous/anxious/difficulty sleeping: decline to answer Do you think of yourself as: straight/heterosexual Gender Identity: male Exam Narrative Exam Narrative: Constituational: Awake/ alert, no apparent distress, well hydrated HENMT: normocephalic, external ears normal, moist oral mucous membranes and oropharynx normal Eyes: EOMI and conjunctivae normal Neck: ROM intact Chest: inspection of chest normal Respiratory: Normal respiratory effort MSK: ROM intact, +NVI Skin: + Approximate 1 cm puncture wound to anterior aspect of mid L lower leg edema, ecchymosis, crepitus, deformity, no foreign body present. Warm/dry/intact Neuro: no focal deficits Psych: mental status grossly normal Constitutional Vital Signs, click to edit/add: Last Vital Signs Temp 99.1 F 09/05/24 17:07 Pulse 88 09/05/24 17:07 Resp 20 09/05/24 17:07 BP 140/60 09/05/24 17:07 Pulse Ox 98 09/05/24 17:07 O2 Del Method Room Air 09/05/24 17:07 Course Vital Signs Vital signs: Vital Signs Temperature 99.1 F 09/05/24 17:07 Pulse Rate 88 09/05/24 17:07 Respiratory Rate 20 09/05/24 17:07 Blood Pressure 140/60 09/05/24 17:07 Pulse Oximetry 98 09/05/24 17:07 Oxygen Delivery Method Room Air 09/05/24 17:07 Temperature 99.1 F 09/05/24 17:07 Pulse Rate 88 09/05/24 17:07 Respiratory Rate 20 09/05/24 17:07 Blood Pressure 140/60 09/05/24 17:07 Pulse Oximetry 98 09/05/24 17:07 Oxygen Delivery Method Room Air 09/05/24 17:07 Medical Decision Making MDM Narrative Medical decision making narrative: Patient is a well-appearing 34-year-old male who presented to the emergency department today for evaluation concerns for a laceration/puncture wound to the anterior aspect of his left lower leg 2/2 a pair of hedge clippers falling onto him. Initial examination without any concerning neurovascular or motor findings on exam. No evidence of foreign body or wound infection present. X-ray imaging without any critical findings including foreign body or fracture present to the emergency department. Subsequent wound closure and hemostasis she with placement of sutures. Please see procedure note for details. Discussed this with the patient including recommendations for supportive care patient had sutures. Advised on suture removal. Discussed signs and symptoms of any worsening condition and when to consider reevaluation by the emergency department. Patient verbalized an understanding of this and is agreeable to plan to be discharged home. Medical Records Medical records reviewed: Yes I reviewed the patient's medical records Imaging Data XR left tib/fib: Attestation: I personally reviewed and interpreted this imaging study as follows: Discharge Plan Discharge Chief Complaint: Wound/Laceration Clinical Impression: Laceration of leg Patient Disposition: Home, Self-Care Prescriptions / Home Meds: No Action gabapentin [Neurontin] 300 mg capsule 300 mg PO TID allopurinol 300 mg tablet 800 mg PO .evening hydrocodone-acetaminophen 5-325 mg tablet colchicine 0.6 mg tablet 0.6 mg PO .every other clonidine HCl 0.1 mg tablet 0.1 mg PO BID amlodipine 10 mg tablet 10 mg PO QDAY Print Language: Burmese Instructions: Laceration (ED) Additional Instructions: Keep sutures clean and dry. Okay to shower. If sutures get wet pat dry. Avoid swimming. Monitor for any signs and symptoms of infection as discussed. Recommend in the next 48 hours keeping sutures covered with Vaseline or bacitracin and a dry dressing. Recommend suture removal in 7 to 10 days. Follow-up with your primary care provider for reevaluation as discussed. Referrals: LEYDI ACEVES [Primary Care Provider, [facility]] - 1 week Procedures ED Laceration Laceration Laceration 1: Site: lower extremity Side (if applicable): left Size (cm): 1 Description: clean and other Depth: simple, single layer Anesthetic used: lidocaine 1% Anesthesia technique: local infiltration Amount (ml): 5 Pre-repair: wound explored and irrigated extensively Skin layer closed with: other (prolene) Size (cm): 4-0 Number of sutures: 2 Technique: simple, interrupted Additional comments: Wound approximation. Patient tolerated procedure well. Neurovascularly intact following placement of sutures.
[2024-09-05] MEDS: LIDOCAINE HCL 1% 100 MG/10 ML MDV 5 ML INJ (17:20)
--- OUTSIDE RECORDS SUMMARY | 2024-09-05 17:30 | XMS_ITS | Clinical Summary ---
Author Organization [facility] Address [address] [place] [address] Care Team Providers Care Hospital Internship Name Role Phone Malcolm Cid MD Primary Care Provider +1- [phone] Medications amLODIPine (NORVASC) 5 mg tablet Take [...] 1 01/14/2024 Area Deprivation Index Answer Date Aids rded National Score (1-100), lower number is lower ri sk 87 08/14/2022 State Score (1-10), lower number is lower risk 8 08/14/2022 Data from: https://www.neighborhoodatlas.medicine.[facility]/. Last address used for calculation [address] [...] 10/03/2024 8:00 AM EDT Office Visit Rheumatology [address] [place], [place] [phone] [place] [address] [place] [address] Return in about 9 months (around 10/03/2024). Health Maintenance Due Date Last Done Comments Annual PCP Team Chronic Dise ase Visit 02/26/2008 Anxiety Screening 02/26/2008 Depression Screening 02/26/2008 HIV Screening 02/26/2008 Hepatitis B Vaccine (1 of 3 - 19+ 3-dose series) 2009 Covid-19 Vaccine (2023-2 5 season) 2023 Influenza Vaccine (#1) 2024 10/13/2018, 2017 Serum Creatinine 12/29/2024 12/30/2023, , 03/04/2023, Additional [...] - 1.22 mg/dL 12/30/2023 2:55 PM EDT [facility] Estimated Glomerular Filtration Rate 73 >=60 mL/min/1.7 3m 12/30/2023 2:55 PM EDT [facility] Comment:Estimated Glomerular Filtration Rate (eGFR) [...] EDT Delmy Castro MD LABORATORY Final Result [facility] [address] [place] [address] * HEP REMOTE PANEL BL (04/02/2020 10:12 AM EST) Hep B Core Ab, Total Negative Negative 04/02/2020 7:30 PM EST [facility] Hep C Antibody IA Negative Negative 04/02/2020 7:31 PM EST [facility] HBsAg Negative Negative 04/02/2020 7:31 PM EST [facility] Hep B Surface Ab, Qual Negative Negative 04/02/2020 7:31 PM EST [facility] Comment:NEGATIVE Blood BLOOD SPECIMEN / Unknown 04/02/2020 10:12 AM EST 04/02/2020 10:14 AM EST Joseph Olea APRN.CNP LABORATORY Final Res ult [facility] [address] [place] [address] [facility] [address] [place] [address] from Last 3 Months or Most Recently Relevant to Health Maintenance Insurance [employer] Care Teams Hospital Internship Relationship Specialty Start Date End Date Malcolm Cid MD PCP - General Family Medicine 01/07/15
--- OUTSIDE RECORDS SUMMARY | 2024-09-05 17:30 | XMS_ITS | Encounter Summary ---
Author Organization [facility] Address [address] [place] [address] Care Team Providers Care Livestock Farmer Name Role Phone Malcolm Cid MD Primary Care Provider +1- [phone] Source Comments In the event this information is protected by the Federal Confidentiality of Alcohol and Drug AbusePatient Records regulations: The Federal rules restrict any use of the information to criminally investigate or prosecute any alcohol or drug abuse patient.[facility] Encounter Details Date Type Department Care Team (Late st Contact Info) Description 04/04/2020 Patient Msg Rheumatology [address] [place], [place] [id number] Provider, Ccf Results Social History Tobacco Use Types Packs/Day Years Used Date Smoking Tobacco: Never Smokeless Tobacco: Current Chew PHQ-2 Answer Date Recorded PHQ-2 score 4 03/31/2020 Area Deprivation Index Answer Date Adis rded National Score (1-100), lower number is lower ri sk Not on file 02/05/2020 State Score (1-10), lower number is lower risk N ot on file 02/05/2020 Data from: https://www.neighborhoodatlas.medicine.[facility].edu/. Last address used for calculation [...] 10/03/2024 8:00 AM EDT Office Visit Rheumatology [address] [place] [address] [place] [address] [place], [place] [id number] Return in about 9 months (around 10/03/2024). documented as of this encounter Visit Diagnoses Not on filedocumented in this encounter Care Teams Livestock Farmer Relationship Specialty Start Date End Date Malcolm Cid MD PCP - General Family Medicine 01/07/15 documented as of this encounter
--- OUTSIDE RECORDS SUMMARY | 2024-09-05 17:30 | XMS_ITS | Encounter Summary ---
Author Organization [facility] Address [address] [place] [address] Care Team Providers Care Thread Laster Name Role Phone Malcolm Cid MD Primary Care Provider +1- [phone] Source Comments In the event this information is protected by the Federal Confidentiality of Alcohol and Drug AbusePatient Records regulations: The Federal rules restrict any use of the information to criminally investigate or prosecute any alcohol or drug abuse patient.[facility] Encounter Details Date Type Department Care Team (Late st Contact Info) Description 08/19/2020 Patient Msg Rheumatology [address] [place], [place] [phone] [place] [address] [place] [address] August lab reminder Social History Tobacco Use [...] on file 02/05/2020 Data from: https://www.neighborhoodatlas.[facility]/. Last address used for calculation Not [...] 10/03/2024 8:00 AM EDT Office Visit Rheumatology [address] [place], [place] [phone] [place] [address] [place], [place] [phone] Return in about 9 months (around 10/03/2024). documented as of this encounter Visit Diagnoses Not on filedocumented in this encounter Care Teams Thread Laster Relationship Specialty Start Date End Date Malcolm Cid MD PCP - General Family Medicine 01/07/15 documented as of this encounter
--- OUTSIDE RECORDS SUMMARY | 2024-09-05 17:30 | XMS_ITS | Patient Health Record ---
Author Organization [facility] Address [address] [place] [address] Care Team Providers Care Lumber Puller Name Role Phone Malcolm Cid MD Primary Care Provider Juan José Casey Unavailable [phone] Reason For Referral No Information Medications Medication [...] Risk Notes Problem Contusion of right knee (82885811343144169) Contusion of right knee, subsequent encounter (S80.01XD) Active confirmed Problem Enthesopathy of knee (12872098) Knee bursitis, right (M70.51) Active confirmed Problem [id number] Acute gout of right knee, 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) Active confirmed Problem Contusion of knee (85862677) Contusion of knee, right (S80.01XA) Inactive confirmed [...] Coverage Start Date Coverage End Date [facility] [place] [address] [place] [address] [id number] TRU SALDIVAR Self - patient is the insured Medical (General) History Medical History History ICD Code Depression High Blood Pressure Anxiety Surgical History Surgery Date(Month/Year) Knee arthroscopy 01/2023 Shoulder surgery, left 03/2021
--- OUTSIDE RECORDS SUMMARY | 2024-09-05 17:30 | XMS_ITS | Encounter Summary ---
Author Organization [facility] Address [address] [place] [address] Care Team Providers Care Workflow Developer Name Role Phone Malcolm Cid MD Primary Care Provider +1- [phone] Source Comments In the event this information is protected by the Federal Confidentiality of Alcohol and Drug AbusePatient Records regulations: The Federal rules restrict any use of the information to criminally investigate or prosecute any alcohol or drug abuse patient.[facility] Encounter Details Date Type Department Care Team (Late st Contact Info) Description 04/05/2020 Patient Msg Rheumatology [address] [place], [place] [phone] Provider, Ccf Results Social History Tobacco Use Types Packs/Day Years Used Date Smoking Tobacco: Never Smokeless Tobacco: Current Chew PHQ-2 Answer Date Recorded PHQ-2 score 4 03/31/2020 Area Deprivation Index Answer Date Adis rded National Score (1-100), lower number is lower ri sk Not on file 02/05/2020 State Score (1-10), lower number is lower risk N ot on file 02/05/2020 Data from: https://www.neighborhoodatlas.medicine.[facility].edu/. Last address used for calculation Not on [...] 10/03/2024 8:00 AM EDT Office Visit Rheumatology [address] [place] [address] [place] [address] [place], [place] [phone] Return in about 9 months (around 10/03/2024). documented as of this encounter Visit Diagnoses Not on filedocumented in this encounter Care Teams Workflow Developer Relationship Specialty Start Date End Date Malcolm Cid MD PCP - General Family Medicine 01/07/15 documented as of this encounter
--- OUTSIDE RECORDS SUMMARY | 2024-09-05 17:30 | XMS_ITS | Encounter Summary ---
Author Organization [facility] Address [address] [place] [address] Care Team Providers Care Die Machine Operator Name Role Phone Malcolm Cid MD Primary Care Provider +1- [phone] Source Comments In the event this information is protected by the Federal Confidentiality of Alcohol and Drug AbusePatient Records regulations: The Federal rules restrict any use of the information to criminally investigate or prosecute any alcohol or drug abuse patient.[facility] Encounter Details Date Type Department Care Team (Late st Contact Info) Description 02/12/2020 Patient Msg Rheumatology [address] [place], [place] [phone] [place] [address] [place] [address] Lab reminder Social History Tobacco Use Types Packs/Day Years Used Date Smoking Tobacco: Never Smokeless Tobacco: Current Chew PHQ-2 Answer Date Recorded PHQ-2 score 6 11/09/2019 Area Deprivation Index Answer Date Adis rded National Score (1-100), lower number is lower ri sk Not on file 02/05/2020 State Score (1-10), lower number is lower risk N ot on file 02/05/2020 Data from: https://www.neighborhoodatlas.medicine.[facility]/. Last address used for calculation Not [...] 10/03/2024 8:00 AM EDT Office Visit Rheumatology [address] [place], [place] [phone] [place] [address] [place], [place] [phone] Return in about 9 months (around 10/03/2024). documented as of this encounter Visit Diagnoses Not on filedocumented in this encounter Care Teams Die Machine Operator Relationship Specialty Start Date End Date Malcolm Cid MD PCP - General Family Medicine 01/07/15 documented as of this encounter
--- OUTSIDE RECORDS SUMMARY | 2024-09-05 17:30 | XMS_ITS | Encounter Summary ---
Author Organization [facility] Address [address] [place] [address] Care Team Providers Care Jewelry Jobber Name Role Phone Malcolm Cid MD Primary Care Provider +1- [phone] Source Comments In the event this information is protected by the Federal Confidentiality of Alcohol and Drug AbusePatient Records regulations: The Federal rules restrict any use of the information to criminally investigate or prosecute any alcohol or drug abuse patient.[facility] Encounter Details Date Type Department Care Team (Late st Contact Info) Description 08/19/2020 Patient Msg Rheumatology [address] [place], [place] [phone] [place] [address] [place] [address] September lab reminder Social History Tobacco Use [...] on file 02/05/2020 Data from: https://www.neighborhoodatlas.[facility]/. Last address used for calculation [...] 10/03/2024 8:00 AM EDT Office Visit Rheumatology [address] [place], [place] [phone] [place] [address] [place], [place] [phone] Return in about 9 months (around 10/03/2024). documented as of this encounter Visit Diagnoses Not on filedocumented in this encounter Care Teams Jewelry Jobber Relationship Specialty Start Date End Date Malcolm Cid MD PCP - General Family Medicine 01/07/15 documented as of this encounter
--- OUTSIDE RECORDS SUMMARY | 2024-09-05 17:30 | XMS_ITS | Encounter Summary ---
Author Organization [facility] Address [address] [place] [address] Care Team Providers Care Tractor Sweeper Driver Name Role Phone Malcolm Cid MD Primary Care Provider +1- [phone] Source Comments In the event this information is protected by the Federal Confidentiality of Alcohol and Drug AbusePatient Records regulations: The Federal rules restrict any use of the information to criminally investigate or prosecute any alcohol or drug abuse patient.[facility] Encounter Details Date Type Department Care Team (Late st Contact Info) Description 07/29/2017 Patient Msg Neurology [address] [place] [address] Provider, Ccf Follow up - [...] 10/03/2024 8:00 AM EDT Office Visit Rheumatology [address] [place] [address] [place] [address] [place] [address] Return in about 9 months (around 10/03/2024). documented as of this encounter Visit Diagnoses Not on filedocumented in this encounter Care Teams Tractor Sweeper Driver Relationship Specialty Start Date End Date Malcolm Cid MD PCP - General Family Medicine 01/07/15 documented as of this encounter
--- OUTSIDE RECORDS SUMMARY | 2024-09-05 17:30 | XMS_ITS | Encounter Summary ---
Author Organization [facility] Address [address] [place] [address] Care Team Providers Care Swatch Cutter Name Role Phone Malcolm Cid MD Primary Care Provider +1- [phone] Source Comments In the event this information is protected by the Federal Confidentiality of Alcohol and Drug AbusePatient Records regulations: The Federal rules restrict any use of the information to criminally investigate or prosecute any alcohol or drug abuse patient.[facility] Encounter Details Date Type Department Care Team (Late st Contact Info) Description 08/14/2022 Patient Msg Rheumatology [address] [place], [place] [phone] [place] [address] [place] [address] Previsit lab reminder Social History Tobacco Use Types Packs/Day Years Used Date Smoking Tobacco: Never Smokeless Tobacco: Current Chew PHQ-2 Answer Date Recorded PHQ-2 score 4 08/13/2022 Area Deprivation Index Answer Date Adis rded National Score (1-100), lower number is lower ri sk 87 08/14/2022 State Score (1-10), lower number is lower risk 8 08/14/2022 Data from: https://www.neighborhoodatlas.[facility]/. Last address used for calculation [...] 10/03/2024 8:00 AM EDT Office Visit Rheumatology [address] [place], [place] [phone] [place] [address] [place], [place] [phone] Return in about 9 months (around 10/03/2024). documented as of this encounter Visit Diagnoses Not on filedocumented in this encounter Care Teams Swatch Cutter Relationship Specialty Start Date End Date Malcolm iCd MD PCP - General Family Medicine 01/07/15 documented as of this encounter
--- OUTSIDE RECORDS SUMMARY | 2024-09-05 17:30 | XMS_ITS | Encounter Summary ---
Author Organization [facility] Address [address] [place] [address] Care Team Providers Care Visual Training Aide Name Role Phone Malcolm Cid MD Primary Care Provider +1- [phone] Source Comments In the event this information is protected by the Federal Confidentiality of Alcohol and Drug AbusePatient Records regulations: The Federal rules restrict any use of the information to criminally investigate or prosecute any alcohol or drug abuse patient.[facility] Encounter Details Date Type Department Care Team (Late st Contact Info) Description 12/06/2017 Patient Msg Medical Records [address] [place] [address] Provider, Ccf Labs needed for Dr. Castro [...] 10/03/2024 8:00 AM EDT Office Visit Rheumatology [address] [place] [address] [place] [address] [place] [address] Return in about 9 months (around 10/03/2024). documented as of this encounter Visit Diagnoses Not on filedocumented in this encounter Care Teams Visual Training Aide Relationship Specialty Start Date End Date Malcolm Cid MD PCP - General Family Medicine 01/07/15 documented as of this encounter
--- OUTSIDE RECORDS SUMMARY | 2024-09-05 17:30 | XMS_ITS | Encounter Summary ---
Author Organization [facility] Address [address] [place] [address] Care Team Providers Care Appliance Sales Associate Name Role Phone Malcolm Cid MD Primary Care Provider +1- [phone] Source Comments In the event this information is protected by the Federal Confidentiality of Alcohol and Drug AbusePatient Records regulations: The Federal rules restrict any use of the information to criminally investigate or prosecute any alcohol or drug abuse patient.[facility] Encounter Details Date Type Department Care Team (Late st Contact Info) Description 09/08/2023 Patient Msg Pediatrics [place] [address] [place] [address] Provider, Ccf Rheumatology Appointment Cancellation Social History Tobacco Use Types Packs/Day Years Used Date Smoking Tobacco: Never Smokeless Tobacco: Current Chew PHQ-2 Answer Date Recorded PHQ-2 score 4 08/13/2022 Area Deprivation Index Answer Date Adis rded National Score (1-100), lower number is lower ri sk 87 08/14/2022 State Score (1-10), lower number is lower risk 8 08/14/2022 Data from: https://www.neighborhoodatlas.medicine.[facility].edu/. Last address used for calculation [address] [...] 10/03/2024 8:00 AM EDT Office Visit Rheumatology [address] [place] [address] [place] [address] [place] [address] Return in about 9 months (around 10/03/2024). documented as of this encounter Visit Diagnoses Not on filedocumented in this encounter Care Teams Appliance Sales Associate Relationship Specialty Start Date End Date Malcolm Cid MD PCP - General Family Medicine 01/07/15 documented as of this encounter
--- OUTSIDE RECORDS SUMMARY | 2024-09-05 17:30 | XMS_ITS | Encounter Summary ---
Author Organization [facility] Address [address] [place] [address] Care Team Providers Care Bowstring Maker Name Role Phone Malcolm Cid MD Primary Care Provider +1- [phone] Source Comments In the event this information is protected by the Federal Confidentiality of Alcohol and Drug AbusePatient Records regulations: The Federal rules restrict any use of the information to criminally investigate or prosecute any alcohol or drug abuse patient.[facility] Encounter Details Date Type Department Care Team (Late st Contact Info) Description 10/12/2022 Patient Msg Rheumatology [address] [place], [place] [id number] Provider, Ccf Appoinment Cancellation Social History Tobacco Use Types Packs/Day Years Used Date Smoking Tobacco: Never Smokeless Tobacco: Current Chew PHQ-2 Answer Date Recorded PHQ-2 score 4 08/13/2022 Area Deprivation Index Answer Date Adis rded National Score (1-100), lower number is lower ri sk 87 08/14/2022 State Score (1-10), lower number is lower risk 8 08/14/2022 Data from: https://www.neighborhoodatlas.medicine.[facility].edu/. Last address used for calculation [address] [facility] 08/14/2022 Sex and Gender Information Value Date [...] 10/03/2024 8:00 AM EDT Office Visit Rheumatology [address] [place] [address] [place] [address] [place] [address] Return in about 9 months (around 10/03/2024). documented as of this encounter Visit Diagnoses Not on filedocumented in this encounter Care Teams Bowstring Maker Relationship Specialty Start Date End Date Malcolm Cid MD PCP - General Family Medicine 01/07/15 documented as of this encounter
--- OUTSIDE RECORDS SUMMARY | 2024-09-05 17:30 | XMS_ITS | Encounter Summary ---
Author Organization [facility] Address [facility] [place] [address] Care Team Providers Care Sales Administration Specialist Name Role Phone Malcolm Cid MD Primary Care Provider +1- [phone] Source Comments In the event this information is protected by the Federal Confidentiality of Alcohol and Drug AbusePatient Records regulations: The Federal rules restrict any use of the information to criminally investigate or prosecute any alcohol or drug abuse patient.[facility] Encounter Details Date Type Department Care Team (Late st Contact Info) Description 09/17/2020 Patient Msg Kidney Medicine [address] [place], [place] [id number] Madonna Serrano, FISHER.MANAGER TECHNOLOGY [address] [place] [address] RE: BP Social History Tobacco [...] ot on file 02/05/2020 Data from: https://www.neighborhoodatlas.[facility]/. Last address [...] 10/03/2024 8:00 AM EDT Office Visit Rheumatology [address] [place], [place] [address] [place] [address] [place], [place] [phone] Return in about 9 months (around 10/03/2024). documented as of this encounter Visit Diagnoses Not on filedocumented in this encounter Care Teams Sales Administration Specialist Relationship Specialty Start Date End Date Malcolm Cid MD PCP - General Family Medicine 01/07/15 documented as of this encounter
--- OUTSIDE RECORDS SUMMARY | 2024-09-05 17:30 | XMS_ITS | Encounter Summary ---
Author Organization [facility] Address [address] [place] [address] Care Team Providers Care Nitroglycerin Nitrator Operator Batch Name Role Phone Malcolm Cid MD Primary Care Provider +1- [phone] Source Comments In the event this information is protected by the Federal Confidentiality of Alcohol and Drug AbusePatient Records regulations: The Federal rules restrict any use of the information to criminally investigate or prosecute any alcohol or drug abuse patient.[facility] Encounter Details Date Type Department Care Team (Late st Contact Info) Description 02/27/2018 Patient Msg Rheumatology [address] [place] [address] [place] [address] [place], [place] [phone] March lab reminder Social History Tobacco Use [...] 10/03/2024 8:00 AM EDT Office Visit Rheumatology [address] [place] [address] [place] [address] [place] [address] Return in about 9 months (around 10/03/2024). documented as of this encounter Visit Diagnoses Not on filedocumented in this encounter Care Teams Nitroglycerin Nitrator Operator Batch Relationship Specialty Start Date End Date Malcolm Cid MD PCP - General Family Medicine 01/07/15 documented as of this encounter
--- OUTSIDE RECORDS SUMMARY | 2024-09-05 17:30 | XMS_ITS | Encounter Summary ---
Author Organization [facility] Address [address] [place] [address] Care Team Providers Care Varnish Finisher Name Role Phone Malcolm Cid MD Primary Care Provider +1- [phone] Source Comments In the event this information is protected by the Federal Confidentiality of Alcohol and Drug AbusePatient Records regulations: The Federal rules restrict any use of the information to criminally investigate or prosecute any alcohol or drug abuse patient.[facility] Encounter Details Date Type Department Care Team (Late st Contact Info) Description 02/11/2018 Patient Msg Rheumatology [address] [place] [address] Provider, Ccf response - Dr [...] 10/03/2024 8:00 AM EDT Office Visit Rheumatology [address] [place] [address] [place] [address] [place] [address] Return in about 9 months (around 10/03/2024). documented as of this encounter Visit Diagnoses Not on filedocumented in this encounter Care Teams Varnish Finisher Relationship Specialty Start Date End Date Malcolm Cid MD PCP - General Family Medicine 01/07/15 documented as of this encounter
--- OUTSIDE RECORDS SUMMARY | 2024-09-05 17:30 | XMS_ITS | Encounter Summary ---
Author Organization [facility] Address [address] [place] [address] Care Team Providers Care Zinc Plate Grainer Name Role Phone Malcolm Cid MD Primary Care Provider +1- [phone] Source Comments In the event this information is protected by the Federal Confidentiality of Alcohol and Drug AbusePatient Records regulations: The Federal rules restrict any use of the information to criminally investigate or prosecute any alcohol or drug abuse patient.[facility] Encounter Details Date Type Department Care Team (Late st Contact Info) Description 01/04/2024 Patient Msg Rheumatology [address] [place], [place] [phone] [place] [address] [place] [address] Previsit lab reminder Social History Tobacco Use Types Packs/Day Years Used Date Smoking Tobacco: Never Smokeless Tobacco: Current Chew PHQ-2 Answer Date Recorded PHQ-2 score 4 08/13/2022 Area Deprivation Index Answer Date Adis rded National Score (1-100), lower number is lower ri sk 87 08/14/2022 State Score (1-10), lower number is lower risk 8 08/14/2022 Data from: https://www.neighborhoodatlas.[facility]/. Last address used for calculation [address] [...] 10/03/2024 8:00 AM EDT Office Visit Rheumatology [address] [place], [place] [phone] [place] [address] [place], [place] [id number] Return in about 9 months (around 10/03/2024). documented as of this encounter Visit Diagnoses Not on filedocumented in this encounter Care Teams Zinc Plate Grainer Relationship Specialty Start Date End Date Malcolm Cid MD PCP - General Family Medicine 01/07/15 documented as of this encounter
--- OUTSIDE RECORDS SUMMARY | 2024-09-05 17:30 | XMS_ITS | Encounter Summary ---
Author Organization [facility] Address [address] [place] [address] Care Team Providers Care Zoo Veterinarian Name Role Phone Malcolm Cid MD Primary Care Provider +1- [phone] Source Comments In the event this information is protected by the Federal Confidentiality of Alcohol and Drug AbusePatient Records regulations: The Federal rules restrict any use of the information to criminally investigate or prosecute any alcohol or drug abuse patient.[facility] Encounter Details Date Type Department Care Team (Late st Contact Info) Description 05/09/2020 Patient Msg Rheumatology [address] [place], [place] [phone] Provider, Ccf Results Social History Tobacco Use Types Packs/Day Years Used Date Smoking Tobacco: Never Smokeless Tobacco: Current Chew PHQ-2 Answer Date Recorded PHQ-2 score 4 03/31/2020 Area Deprivation Index Answer Date Adis rded National Score (1-100), lower number is lower ri sk Not on file 02/05/2020 State Score (1-10), lower number is lower risk N ot on file 02/05/2020 Data from: https://www.neighborhoodatlas.medicine.[facility].edu/. Last address used for calculation Not [...] 10/03/2024 8:00 AM EDT Office Visit Rheumatology [address] [place] [address] [place] [address] [place] [address] Return in about 9 months (around 10/03/2024). documented as of this encounter Visit Diagnoses Not on filedocumented in this encounter Care Teams Zoo Veterinarian Relationship Specialty Start Date End Date Malcolm Cid MD PCP - General Family Medicine 01/07/15 documented as of this encounter
--- OUTSIDE RECORDS SUMMARY | 2024-09-05 17:30 | XMS_ITS | Encounter Summary ---
Author Organization [facility] Address [address] [place] [address] Care Team Providers Care Party Director Name Role Phone Malcolm Cid MD Primary Care Provider +1- [phone] Source Comments In the event this information is protected by the Federal Confidentiality of Alcohol and Drug AbusePatient Records regulations: The Federal rules restrict any use of the information to criminally investigate or prosecute any alcohol or drug abuse patient.[facility] Encounter Details Date Type Department Care Team (Late st Contact Info) Description 09/09/2022 Get Medical Advice Rheumatology [address] [place], [place] [phone] [place] [address] [place] [address] Return to work form. Social History Tobacco Use Types Packs/Day Years Used Date Smoking Tobacco: Never Smokeless Tobacco: Current Chew PHQ-2 Answer Date Recorded PHQ-2 score 4 08/13/2022 Area Deprivation Index Answer Date Adis rded National Score (1-100), lower number is lower ri sk 87 08/14/2022 State Score (1-10), lower number is lower risk 8 08/14/2022 Data from: https://www.[facility] hospitalatlas.[facility]/. Last address used for calculation Th[address] [...] 10/03/2024 8:00 AM EDT Office Visit Rheumatology [address] [place], [place] 8[address] [place] [address] [place], [place] [phone] Return in about 9 months (around 10/03/2024). documented as of this encounter Visit Diagnoses Not on filedocumented in this encounter Care Teams Party Director Relationship Specialty Start Date End Date Malcolm Cid MD PCP - General Family Medicine 01/07/15 documented as of this encounter
--- OUTSIDE RECORDS SUMMARY | 2024-09-05 17:30 | XMS_ITS | Encounter Summary ---
Author Organization [facility] Address [address] [place] [address] Care Team Providers Care Staffing Recruiter Name Role Phone Malcolm Cid MD Primary Care Provider +1- [phone] Source Comments In the event this information is protected by the Federal Confidentiality of Alcohol and Drug AbusePatient Records regulations: The Federal rules restrict any use of the information to criminally investigate or prosecute any alcohol or drug abuse patient.[facility] Encounter Details Date Type Department Care Team (Late st Contact Info) Description 03/02/2018 Patient Msg Infectious Disease [address] [place], [place] [phone] Provider, Ccf Update rx's information Social History [...] 10/03/2024 8:00 AM EDT Office Visit Rheumatology [address] [place] [address] [place] [address] [place] [address] Return in about 9 months (around 10/03/2024). documented as of this encounter Visit Diagnoses Not on filedocumented in this encounter Care Teams Staffing Recruiter Relationship Specialty Start Date End Date Malcolm Cid MD PCP - General Family Medicine 01/07/15 documented as of this encounter
--- OUTSIDE RECORDS SUMMARY | 2024-09-05 17:30 | XMS_ITS | Encounter Summary ---
Author Organization [facility] Address [address] [place] [address] Care Team Providers Care Engagement Quality Consultant Name Role Phone Malcolm Cid MD Primary Care Provider +1- [phone] Source Comments In the event this information is protected by the Federal Confidentiality of Alcohol and Drug AbusePatient Records regulations: The Federal rules restrict any use of the information to criminally investigate or prosecute any alcohol or drug abuse patient.[facility] Encounter Details Date Type Department Care Team (Late st Contact Info) Description 08/19/2020 Patient Msg Rheumatology [address] [place], [place] [id number] [place] [address] [place] [address] October lab reminder Social History Tobacco Use Types Packs/Day Years Used Date Smoking Tobacco: Never Smokeless Tobacco: Current Chew PHQ-2 Answer Date Recorded PHQ-2 score 3 08/19/2020 Area Deprivation Index Answer Date Adis rded National Score (1-100), lower number is lower ri sk Not on file 02/05/2020 State Score (1-10), lower number is lower risk N ot on file 02/05/2020 Data from: https://www.neighborhoodatlas.[facility]/. Last address used for calculation Not [...] 10/03/2024 8:00 AM EDT Office Visit Rheumatology [address] [place], [place] 39542[address] [place] [address] [place], [place] 6[address] Return in about 9 months (around 10/03/2024). documented as of this encounter Visit Diagnoses Not on filedocumented in this encounter Care Teams Engagement Quality Consultant Relationship Specialty Start Date End Date Malcolm Cid MD PCP - General Family Medicine 01/07/15 documented as of this encounter
--- OUTSIDE RECORDS SUMMARY | 2024-09-05 17:30 | XMS_ITS | Encounter Summary ---
Author Organization [facility] Address [address] [place] [address] Care Team Providers Care Fox Raiser Name Role Phone Malcolm Cid MD Primary Care Provider +1- [phone] Source Comments In the event this information is protected by the Federal Confidentiality of Alcohol and Drug AbusePatient Records regulations: The Federal rules restrict any use of the information to criminally investigate or prosecute any alcohol or drug abuse patient.[facility] Encounter Details Date Type Department Care Team (Late st Contact Info) Description 03/08/2023 Patient Msg Rheumatology [address] [place], [place] [address] [place] [address] [place], [place] [phone] Previsit lab reminder Social History Tobacco Use Types Packs/Day Years Used Date Smoking Tobacco: Never Smokeless Tobacco: Current Chew PHQ-2 Answer Date Recorded PHQ-2 score 4 08/13/2022 Area Deprivation Index Answer Date Adis rded National Score (1-100), lower number is lower ri sk 87 08/14/2022 State Score (1-10), lower number is lower risk 8 08/14/2022 Data from: https://www.neighborhoodatlas.[facility]/. Last address used for calculation Thong [...] 10/03/2024 8:00 AM EDT Office Visit Rheumatology [address] [place], [place] [address] [place] [address] [place], [place] 4574[address] Return in about 9 months (around 10/03/2024). documented as of this encounter Visit Diagnoses Not on filedocumented in this encounter Care Teams Fox Raiser Relationship Specialty Start Date End Date Malcolm Cid MD PCP - General Family Medicine 01/07/15 documented as of this encounter
--- OUTSIDE RECORDS SUMMARY | 2024-09-05 17:30 | XMS_ITS | Encounter Summary ---
Author Organization [facility] Address [address] [place] [address] Care Team Providers Care Acupressure Therapist Name Role Phone Malcolm Cid MD Primary Care Provider +1- [phone] Source Comments In the event this information is protected by the Federal Confidentiality of Alcohol and Drug AbusePatient Records regulations: The Federal rules restrict any use of the information to criminally investigate or prosecute any alcohol or drug abuse patient.[facility] Encounter Details Date Type Department Care Team (Late st Contact Info) Description 05/09/2020 Patient Msg Rheumatology [address] [place], [place] [address] Provider, Ccf Results Social History Tobacco Use Types Packs/Day Years Used Date Smoking Tobacco: Never Smokeless Tobacco: Current Chew PHQ-2 Answer Date Recorded PHQ-2 score 4 03/31/2020 Area Deprivation Index Answer Date Adis rded National Score (1-100), lower number is lower ri sk Not on file 02/05/2020 State Score (1-10), lower number is lower risk N ot on file 02/05/2020 Data from: https://www.neighborhoodatlas.medicine.[facility].edu/. Last address used for calculation [...] 10/03/2024 8:00 AM EDT Office Visit Rheumatology [address] [place] [address] [place] [address] [place] [address] Return in about 9 months (around 10/03/2024). documented as of this encounter Visit Diagnoses Not on filedocumented in this encounter Care Teams Acupressure Therapist Relationship Specialty Start Date End Date Malcolm Cid MD PCP - General Family Medicine 01/07/15 documented as of this encounter
--- OUTSIDE RECORDS SUMMARY | 2024-09-05 17:30 | XMS_ITS | Encounter Summary ---
Author Organization [facility] Address [facility] [place] [address] Care Team Providers Care Medical Concierge Name Role Phone Malcolm Cid MD Primary Care Provider +1- [phone] Source Comments In the event this information is protected by the Federal Confidentiality of Alcohol and Drug AbusePatient Records regulations: The Federal rules restrict any use of the information to criminally investigate or prosecute any alcohol or drug abuse patient.[facility] Encounter Details Date Type Department Care Team (Late st Contact Info) Description 11/29/2020 Get Medical Advice Kidney Medicine [address] [place], [place] [phone] Madonna Serrano, RESIDENT SERVICES DIRECTOR.CREATIVE SERVICES INTERN [address] [place] [address] RE: Test Result Question Social [...] N ot on file 02/05/2020 Data from: https://www.neighborhoodatlas.[facility]/. Last address used for calculation Not [...] of Assessment Author No 04/26/2017 6:15 PM Oarlia Hurtado RN * Are you blind or [...] 10/03/2024 8:00 AM EDT Office Visit Rheumatology [address] [place], [place] 9[address] [place] [address] [place], [place] [address]86[address] Return in about 9 months (around 10/03/2024). documented as of this encounter Visit Diagnoses Not on filedocumented in this encounter Care Teams Medical Concierge Relationship Specialty Start Date End Date Malcolm Cid MD PCP - General Family Medicine 01/07/15 documented as of this encounter
--- OUTSIDE RECORDS SUMMARY | 2024-09-05 17:30 | XMS_ITS | Encounter Summary ---
Author Organization [facility] Address [address] [place] [address] Care Team Providers Care Collection Analyst Name Role Phone Malcolm Cid MD Primary Care Provider +1- [phone] Source Comments In the event this information is protected by the Federal Confidentiality of Alcohol and Drug AbusePatient Records regulations: The Federal rules restrict any use of the information to criminally investigate or prosecute any alcohol or drug abuse patient.[facility] Encounter Details Date Type Department Care Team (Late st Contact Info) Description 09/28/2017 Patient Msg Medical Records [address] [place] [address] Provider, Ccf Oct lab reminder Social History [...] 10/03/2024 8:00 AM EDT Office Visit Rheumatology [address] [place] [address] [place] [address] [place] [address] Return in about 9 months (around 10/03/2024). documented as of this encounter Visit Diagnoses Not on filedocumented in this encounter Care Teams Collection Analyst Relationship Specialty Start Date End Date Malcolm Cid MD PCP - General Family Medicine 01/07/15 documented as of this encounter
--- OUTSIDE RECORDS SUMMARY | 2024-09-05 17:30 | XMS_ITS | Encounter Summary ---
Author Organization [facility] Address [address] [place] [address] Care Team Providers Care Cat Driver Name Role Phone Malcolm Cid MD Primary Care Provider +1- [phone] Source Comments In the event this information is protected by the Federal Confidentiality of Alcohol and Drug AbusePatient Records regulations: The Federal rules restrict any use of the information to criminally investigate or prosecute any alcohol or drug abuse patient.[facility] Encounter Details Date Type Department Care Team (Late st Contact Info) Description 11/12/2019 Patient Msg Rheumatology [address] [place], [place] [phone] [place] [address] [place], [place] [phone] Lab reminder Social History Tobacco Use Types [...] 10/03/2024 8:00 AM EDT Office Visit Rheumatology [address] [place] [address] [place] [address] [place] [address] Return in about 9 months (around 10/03/2024). documented as of this encounter Visit Diagnoses Not on filedocumented in this encounter Care Teams Cat Driver Relationship Specialty Start Date End Date Malcolm Cid MD PCP - General Family Medicine 01/07/15 documented as of this encounter
--- OUTSIDE RECORDS SUMMARY | 2024-09-05 17:30 | XMS_ITS | Encounter Summary ---
Author Organization [facility] Address [address] [place] [address] Care Team Providers Care Freezer Unloader Name Role Phone Malcolm Cid MD Primary Care Provider +1- [phone] Source Comments In the event this information is protected by the Federal Confidentiality of Alcohol and Drug AbusePatient Records regulations: The Federal rules restrict any use of the information to criminally investigate or prosecute any alcohol or drug abuse patient.[facility] Encounter Details Date Type Department Care Team (Late st Contact Info) Description 09/20/2023 Patient [facility] HB-[address] [place] [address] Nevin Balbuena RPh At your next appointment, choose [facility] Social History Tobacco Use Types Packs/Day Years Used Date Smoking Tobacco: Never Smokeless Tobacco: Current Chew PHQ-2 Answer Date Recorded PHQ-2 score 4 08/13/2022 Area Deprivation Index Answer Date Adis rded National Score (1-100), lower number is lower ri sk 87 08/14/2022 State Score (1-10), lower number is lower risk 8 08/14/2022 Data from: https://www.neighborhoodatlas.medicine.[facility].edu/. Last address used for calculation [address] [facility] [facility] [facility] 08/14/2022 Sex and Gender Information [...] 10/03/2024 8:00 AM EDT Office Visit Rheumatology [address] [place] [address] [place] [address] [place] [address] Return in about 9 months (around 10/03/2024). documented as of this encounter Visit Diagnoses Not on filedocumented in this encounter Care Teams Freezer Unloader Relationship Specialty Start Date End Date Malcolm Cid MD PCP - General Family Medicine 01/07/15 documented as of this encounter
--- OUTSIDE RECORDS SUMMARY | 2024-09-05 17:30 | XMS_ITS | Encounter Summary ---
Author Organization [facility] Address [address] [place] [address] Care Team Providers Care Machine Tool Builder Name Role Phone Malcolm Cid MD Primary Care Provider +1- [phone] Source Comments In the event this information is protected by the Federal Confidentiality of Alcohol and Drug AbusePatient Records regulations: The Federal rules restrict any use of the information to criminally investigate or prosecute any alcohol or drug abuse patient.[facility] Encounter Details Date Type Department Care Team (Late st Contact Info) Description 03/10/2019 Patient Msg Rheumatology [address] [place], [place] [phone] [place] [address] [place], [place] [phone] Previsit lab reminder Social History Tobacco Use [...] 10/03/2024 8:00 AM EDT Office Visit Rheumatology [address] [place] [address] [place] [address] [place] [address] Return in about 9 months (around 10/03/2024). documented as of this encounter Visit Diagnoses Not on filedocumented in this encounter Care Teams Machine Tool Builder Relationship Specialty Start Date End Date Malcolm Cid MD PCP - General Family Medicine 01/07/15 documented as of this encounter
--- OUTSIDE RECORDS SUMMARY | 2024-09-05 17:30 | XMS_ITS | Encounter Summary ---
Author Organization [facility] Address [address] [place] [address] Care Team Providers Care Pattern Puncher Name Role Phone Malcolm Cid MD Primary Care Provider +1- [phone] Source Comments In the event this information is protected by the Federal Confidentiality of Alcohol and Drug AbusePatient Records regulations: The Federal rules restrict any use of the information to criminally investigate or prosecute any alcohol or drug abuse patient.[facility] Encounter Details Date Type Department Care Team (Late st Contact Info) Description 02/04/2024 Get Medical Advice Rheumatology [address] [place], [place] [id number] [place] [address] [place] [address] Flare up Social History Tobacco Use Types Packs/Day Years Used Date Smoking Tobacco: Never Smokeless Tobacco: Current Chew PHQ-2 Answer Date Recorded PHQ-2 score 1 01/14/2024 Area Deprivation Index Answer Date Adis rded National Score (1-100), lower number is lower ri sk 87 08/14/2022 State Score (1-10), lower number is lower risk 8 08/14/2022 Data from: https://www.neighborhoodatlas.medicine.[facility]/. Last address used for calculation Thong SALDAÑA [...] 10/03/2024 8:00 AM EDT Office Visit Rheumatology [address] [place] [address] [place] [address] [place] [address] Return in about 9 months (around 10/03/2024). documented as of this encounter Visit Diagnoses Not on filedocumented in this encounter Care Teams Pattern Puncher Relationship Specialty Start Date End Date Malcolm Cid MD PCP - General Family Medicine 01/07/15 documented as of this encounter
--- OUTSIDE RECORDS SUMMARY | 2024-09-05 17:30 | XMS_ITS | Clinical Summary ---
Author Organization [facility] Address [address] [place] [address] Care Team Providers Care Miller Head Assistant Wet Process Name Role Phone Malcolm Cid MD Primary Care Provider [phone] Allergies No known active allergies Medications gabapentin [...] - 2023-2 5 season) 2023 Flu vaccine (#1) 09/29/2024 HPV vaccine Aged Out No longer eligi [...] patient's age to complete this topic Insurance [facility] Member Subscriber Plan / Payer (Ef fective 2018-Present) Name:Kam Wrayn Relation to Subscriber:Self Name:Nick Wray Payer ID:Not on file Type:Not on file Address: [address] [employer] Advance Directives * Full Code (Latest Code Status on File) Date Activated Date Inactivated Comments 04/26/2015 11:58 PM 04/28/2015 7:53 PM * Full Code Date Activated Date Inactivated Comments 02/24/2015 8:57 PM 02/28/2015 4:48 PM Care Teams Miller Head Assistant Wet Process Relationship Specialty Start Date End Date Malcolm Cid MD PCP - General 02/24/15
--- OUTSIDE RECORDS SUMMARY | 2024-09-05 17:30 | XMS_ITS | Encounter Summary ---
Author Organization [facility] Address [address] [place] [address] Care Team Providers Care Supervising Broker Name Role Phone Malcolm Cid MD Primary Care Provider +1- [phone] Source Comments In the event this information is protected by the Federal Confidentiality of Alcohol and Drug AbusePatient Records regulations: The Federal rules restrict any use of the information to criminally investigate or prosecute any alcohol or drug abuse patient.[facility] Encounter Details Date Type Department Care Team (Late st Contact Info) Description 09/27/2017 Patient Msg Pediatric Rheumatology [address] [place], [place] [phone] Provider, Ccf Regarding refill request Social History [...] 10/03/2024 8:00 AM EDT Office Visit Rheumatology [address] [place] [address] [place] [address] [place] [address] Return in about 9 months (around 10/03/2024). documented as of this encounter Visit Diagnoses Not on filedocumented in this encounter Care Teams Supervising Broker Relationship Specialty Start Date End Date Malcolm Cid MD PCP - General Family Medicine 01/07/15 documented as of this encounter
--- OUTSIDE RECORDS SUMMARY | 2024-09-05 17:30 | XMS_ITS | Encounter Summary ---
Author Organization [facility] Address [address] [place] [address] Care Team Providers Care Grader Meat Name Role Phone Malcolm Cid MD Primary Care Provider +1- [phone] Source Comments In the event this information is protected by the Federal Confidentiality of Alcohol and Drug AbusePatient Records regulations: The Federal rules restrict any use of the information to criminally investigate or prosecute any alcohol or drug abuse patient.[facility] Encounter Details Date Type Department Care Team (Late st Contact Info) Description 07/05/2019 Patient Msg Rheumatology [address] [place] [address] Provider, Ccf Lab reminder from [...] 10/03/2024 8:00 AM EDT Office Visit Rheumatology [address] [place] [address] [place] [address] [place] [address] Return in about 9 months (around 10/03/2024). documented as of this encounter Visit Diagnoses Not on filedocumented in this encounter Care Teams Grader Meat Relationship Specialty Start Date End Date Malcolm Cid MD PCP - General Family Medicine 01/07/15 documented as of this encounter
--- OUTSIDE RECORDS SUMMARY | 2024-09-05 17:31 | XMS_ITS | Encounter Summary ---
Author Organization [facility] Address [address] [place] [address] Care Team Providers Care Hat Conditioner Name Role Phone Malcolm Cid MD Primary Care Provider +1- [phone] Source Comments In the event this information is protected by the Federal Confidentiality of Alcohol and Drug AbusePatient Records regulations: The Federal rules restrict any use of the information to criminally investigate or prosecute any alcohol or drug abuse patient.[facility] Encounter Details Date Type Department Care Team (Late st Contact Info) Description 09/09/2018 Patient Msg Rheumatology [address] [place], [place] [id number] Provider, Ccf Reply Social History Tobacco Use [...] 10/03/2024 8:00 AM EDT Office Visit Rheumatology [address] [place] [address] [place] [address] [place] [address] Return in about 9 months (around 10/03/2024). documented as of this encounter Visit Diagnoses Not on filedocumented in this encounter Care Teams Hat Conditioner Relationship Specialty Start Date End Date Malcolm Cid MD PCP - General Family Medicine 01/07/15 documented as of this encounter
--- OUTSIDE RECORDS SUMMARY | 2024-09-05 17:31 | XMS_ITS | Encounter Summary ---
Author Organization [facility] Address [address] [place] [address] Care Team Providers Care Food Storeroom Clerk Name Role Phone Malcolm Cid MD Primary Care Provider +1- [phone] Source Comments In the event this information is protected by the Federal Confidentiality of Alcohol and Drug AbusePatient Records regulations: The Federal rules restrict any use of the information to criminally investigate or prosecute any alcohol or drug abuse patient.[facility] Encounter Details Date Type Department Care Team (Late st Contact Info) Description 08/10/2018 Patient Msg Rheumatology [address] [place], [place] [phone] Provider, Ccf RE: Please reply back Social [...] 10/03/2024 8:00 AM EDT Office Visit Rheumatology [address] [place] [address] [place] [address] [place] [address] Return in about 9 months (around 10/03/2024). documented as of this encounter Visit Diagnoses Not on filedocumented in this encounter Care Teams Food Storeroom Clerk Relationship Specialty Start Date End Date Malcolm Cid MD PCP - General Family Medicine 01/07/15 documented as of this encounter
--- OUTSIDE RECORDS SUMMARY | 2024-09-05 17:31 | XMS_ITS | Encounter Summary ---
Author Organization [facility] Address [address] [place] [address] Care Team Providers Care Exhaust Equipment Operator Name Role Phone Malcolm Cid MD Primary Care Provider +1- [phone] Source Comments In the event this information is protected by the Federal Confidentiality of Alcohol and Drug AbusePatient Records regulations: The Federal rules restrict any use of the information to criminally investigate or prosecute any alcohol or drug abuse patient.[facility] Encounter Details Date Type Department Care Team (Late st Contact Info) Description 12/27/2018 Patient Msg Rheumatology [address] [place], [place] [id number] Provider, Issa RE: Update from Dr Castro [...] 10/03/2024 8:00 AM EDT Office Visit Rheumatology [address] [place], [place] [address] [place] [address] [place] [address] Return in about 9 months (around 10/03/2024). documented as of this encounter Visit Diagnoses Not on filedocumented in this encounter Care Teams Exhaust Equipment Operator Relationship Specialty Start Date End Date Malcolm Cid MD PCP - General Family Medicine 01/07/15 documented as of this encounter
--- OUTSIDE RECORDS SUMMARY | 2024-09-05 17:31 | XMS_ITS | Encounter Summary ---
Author Organization [facility] Address [address] [place] [address] Care Team Providers Care Case Management Associate Name Role Phone Malcolm Cid MD Primary Care Provider +1- [phone] Source Comments In the event this information is protected by the Federal Confidentiality of Alcohol and Drug AbusePatient Records regulations: The Federal rules restrict any use of the information to criminally investigate or prosecute any alcohol or drug abuse patient.[facility] Encounter Details Date Type Department Care Team (Late st Contact Info) Description 10/28/2018 Patient Msg Rheumatology [address] [place], [place] [id number] Provider, Ccf Dr Castro message Social History [...] 10/03/2024 8:00 AM EDT Office Visit Rheumatology [address] [place] [address] [place] [address] [place] [address] Return in about 9 months (around 10/03/2024). documented as of this encounter Visit Diagnoses Not on filedocumented in this encounter Care Teams Case Management Associate Relationship Specialty Start Date End Date Malcolm Cid MD PCP - General Family Medicine 01/07/15 documented as of this encounter
--- OUTSIDE RECORDS SUMMARY | 2024-09-05 17:31 | XMS_ITS | Encounter Summary ---
Author Organization [facility] Address [address] [place] [address] Care Team Providers Care Registered Nurse Cardiac Telemetry Name Role Phone Malcolm Cid MD Primary Care Provider +1- [phone] Source Comments In the event this information is protected by the Federal Confidentiality of Alcohol and Drug AbusePatient Records regulations: The Federal rules restrict any use of the information to criminally investigate or prosecute any alcohol or drug abuse patient.[facility] Encounter Details Date Type Department Care Team (Late st Contact Info) Description 03/10/2019 Patient Msg Rheumatology [address] [place], [place] [phone] [place] [address] [place], [place] [phone] April lab reminder Social History Tobacco Use [...] 10/03/2024 8:00 AM EDT Office Visit Rheumatology [address] [place] [address] [place] [address] [place] [address] Return in about 9 months (around 10/03/2024). documented as of this encounter Visit Diagnoses Not on filedocumented in this encounter Care Teams Registered Nurse Cardiac Telemetry Relationship Specialty Start Date End Date Malcolm Cid MD PCP - General Family Medicine 01/07/15 documented as of this encounter
--- OUTSIDE RECORDS SUMMARY | 2024-09-05 17:31 | XMS_ITS | Encounter Summary ---
Author Organization [facility] Address [address] [place] [address] Care Team Providers Care Android Platform Developer Name Role Phone Malcolm Cid MD Primary Care Provider +1- [phone] Source Comments In the event this information is protected by the Federal Confidentiality of Alcohol and Drug AbusePatient Records regulations: The Federal rules restrict any use of the information to criminally investigate or prosecute any alcohol or drug abuse patient.[facility] Encounter Details Date Type Department Care Team (Late st Contact Info) Description 08/12/2018 Patient Msg Rheumatology [address] [place], [place] [phone] Provider, Ccalvarado RE: Reply Social History Tobacco [...] 10/03/2024 8:00 AM EDT Office Visit Rheumatology [address] [place] [address] [place] [address] [place] [address] Return in about 9 months (around 10/03/2024). documented as of this encounter Visit Diagnoses Not on filedocumented in this encounter Care Teams Android Platform Developer Relationship Specialty Start Date End Date Malcolm Cid MD PCP - General Family Medicine 01/07/15 documented as of this encounter
--- OUTSIDE RECORDS SUMMARY | 2024-09-05 17:31 | XMS_ITS | Encounter Summary ---
Author Organization [facility] Address [address] [place] [address] Care Team Providers Care Finish Inspector Name Role Phone Malcolm Cid MD Primary Care Provider +1- [phone] Source Comments In the event this information is protected by the Federal Confidentiality of Alcohol and Drug AbusePatient Records regulations: The Federal rules restrict any use of the information to criminally investigate or prosecute any alcohol or drug abuse patient.[facility] Encounter Details Date Type Department Care Team (Late st Contact Info) Description 04/22/2018 Patient Msg Rheumatology [address] [place], [place] [phone] [place] [address] [place], [place] [phone] Previsit lab reminder Social History Tobacco Use [...] 10/03/2024 8:00 AM EDT Office Visit Rheumatology [address] [place] [address] [place] [address] [place] [address] Return in about 9 months (around 10/03/2024). documented as of this encounter Visit Diagnoses Not on filedocumented in this encounter Care Teams Finish Inspector Relationship Specialty Start Date End Date Malcolm Cid MD PCP - General Family Medicine 01/07/15 documented as of this encounter
--- OUTSIDE RECORDS SUMMARY | 2024-09-05 17:31 | XMS_ITS | Encounter Summary ---
Author Organization [facility] Address [address] [place] [address] Care Team Providers Care Middleware Solutions Architect Name Role Phone Malcolm Cid MD Primary Care Provider +1- [phone] Source Comments In the event this information is protected by the Federal Confidentiality of Alcohol and Drug AbusePatient Records regulations: The Federal rules restrict any use of the information to criminally investigate or prosecute any alcohol or drug abuse patient.[facility] Encounter Details Date Type Department Care Team (Late st Contact Info) Description 01/24/2019 Patient Msg Rheumatology [address] [place], [place] [id number] Provider, Ccf Message from Dr Castro office [...] 10/03/2024 8:00 AM EDT Office Visit Rheumatology [address] [place] [address] [place] [address] [place] [address] Return in about 9 months (around 10/03/2024). documented as of this encounter Visit Diagnoses Not on filedocumented in this encounter Care Teams Middleware Solutions Architect Relationship Specialty Start Date End Date Malcolm Cid MD PCP - General Family Medicine 01/07/15 documented as of this encounter
--- OUTSIDE RECORDS SUMMARY | 2024-09-05 17:31 | XMS_ITS | Encounter Summary ---
Author Organization [facility] Address [address] [place] [address] Care Team Providers Care Welder Tech Name Role Phone Malcolm Cid MD Primary Care Provider +1- [phone] Source Comments In the event this information is protected by the Federal Confidentiality of Alcohol and Drug AbusePatient Records regulations: The Federal rules restrict any use of the information to criminally investigate or prosecute any alcohol or drug abuse patient.[facility] Encounter Details Date Type Department Care Team (Late st Contact Info) Description 07/29/2018 Patient Msg Rheumatology [address] [place], [place] [phone] [place] [address] [place], [place] [phone] September lab reminder Social History Tobacco Use [...] 10/03/2024 8:00 AM EDT Office Visit Rheumatology [address] [place] [address] [place] [address] [place] [address] Return in about 9 months (around 10/03/2024). documented as of this encounter Visit Diagnoses Not on filedocumented in this encounter Care Teams Welder Tech Relationship Specialty Start Date End Date Malcolm Cid MD PCP - General Family Medicine 01/07/15 documented as of this encounter
--- OUTSIDE RECORDS SUMMARY | 2024-09-05 17:31 | XMS_ITS | Encounter Summary ---
Author Organization [facility] Address [address] [place] [address] Care Team Providers Care Professor Of Poultry Science Name Role Phone Malcolm Cid MD Primary Care Provider +1- [phone] Source Comments In the event this information is protected by the Federal Confidentiality of Alcohol and Drug AbusePatient Records regulations: The Federal rules restrict any use of the information to criminally investigate or prosecute any alcohol or drug abuse patient.[facility] Encounter Details Date Type Department Care Team (Late st Contact Info) Description 12/02/2020 Patient Msg Rheumatology [address] [place], [place] [phone] [place] [address] [place] [address] Lab reminder Social History Tobacco Use Types Packs/Day Years Used Date Smoking Tobacco: Never Smokeless Tobacco: Current Chew PHQ-2 Answer Date Recorded PHQ-2 score 3 08/19/2020 Area Deprivation Index Answer Date Adis rded National Score (1-100), lower number is lower ri sk Not on file 02/05/2020 State Score (1-10), lower number is lower risk N ot on file 02/05/2020 Data from: https://www.neighborhoodatlas.[facility]/. Last address used for calculation [...] 10/03/2024 8:00 AM EDT Office Visit Rheumatology [address] [place], [place] [phone] [place] [address] [place], [place] [phone] Return in about 9 months (around 10/03/2024). documented as of this encounter Visit Diagnoses Not on filedocumented in this encounter Care Teams Professor Of Poultry Science Relationship Specialty Start Date End Date Malcolm Cid MD PCP - General Family Medicine 01/07/15 documented as of this encounter
--- OUTSIDE RECORDS SUMMARY | 2024-09-05 17:31 | XMS_ITS | Encounter Summary ---
Author Organization [facility] Address [address] [place] [address] Care Team Providers Care Assistant Activities Director Name Role Phone Malcolm Cid MD Primary Care Provider +1- [phone] Source Comments In the event this information is protected by the Federal Confidentiality of Alcohol and Drug AbusePatient Records regulations: The Federal rules restrict any use of the information to criminally investigate or prosecute any alcohol or drug abuse patient.[facility] Encounter Details Date Type Department Care Team (Late st Contact Info) Description 12/02/2020 Patient Msg Rheumatology [address] [place], [place] [phone] [place] [address] [place] [address] Previsit lab reminder Social History Tobacco Use Types Packs/Day Years Used Date Smoking Tobacco: Never Smokeless Tobacco: Current Chew PHQ-2 Answer Date Recorded PHQ-2 score 3 08/19/2020 Area Deprivation Index Answer Date Adis rded National Score (1-100), lower number is lower ri sk Not on file 02/05/2020 State Score (1-10), lower number is lower risk N ot on file 02/05/2020 Data from: https://www.neighborhoodatlas.[facility]/. Last address used for calculation [...] 10/03/2024 8:00 AM EDT Office Visit Rheumatology [address] [place] [address] [place] [address] [place], [place] [phone] Return in about 9 months (around 10/03/2024). documented as of this encounter Visit Diagnoses Not on filedocumented in this encounter Care Teams Assistant Activities Director Relationship Specialty Start Date End Date Malcolm Cid MD PCP - General Family Medicine 01/07/15 documented as of this encounter
--- OUTSIDE RECORDS SUMMARY | 2024-09-05 17:31 | XMS_ITS | Encounter Summary ---
Author Organization [facility] Address [address] [place] [address] Care Team Providers Care Community Health Program Coordinator Name Role Phone Malcolm Cid MD Primary Care Provider +1- [phone] Source Comments In the event this information is protected by the Federal Confidentiality of Alcohol and Drug AbusePatient Records regulations: The Federal rules restrict any use of the information to criminally investigate or prosecute any alcohol or drug abuse patient.[facility] Encounter Details Date Type Department Care Team (Late st Contact Info) Description 11/25/2018 Patient Msg Rheumatology [address] [place], [place] [phone] [place] [address] [place], [place] [phone] December lab reminder Social History Tobacco Use [...] 10/03/2024 8:00 AM EDT Office Visit Rheumatology [address] [place] [address] [place] [address] [place] [address] Return in about 9 months (around 10/03/2024). documented as of this encounter Visit Diagnoses Not on filedocumented in this encounter Care Teams Community Health Program Coordinator Relationship Specialty Start Date End Date Malcolm Cid MD PCP - General Family Medicine 01/07/15 documented as of this encounter
--- OUTSIDE RECORDS SUMMARY | 2024-09-05 17:31 | XMS_ITS | Encounter Summary ---
Author Organization [facility] Address [address] [place] [address] Care Team Providers Care Patient Companion Name Role Phone Malcolm Cid MD Primary Care Provider +1- [phone] Source Comments In the event this information is protected by the Federal Confidentiality of Alcohol and Drug AbusePatient Records regulations: The Federal rules restrict any use of the information to criminally investigate or prosecute any alcohol or drug abuse patient.[facility] Encounter Details Date Type Department Care Team (Late st Contact Info) Description 10/28/2018 Patient Msg Rheumatology [address] [place], [place] [id number] Provider, Ccf Dr Castro reply Social History [...] 10/03/2024 8:00 AM EDT Office Visit Rheumatology [address] [place] [address] [place] [address] [place] [address] Return in about 9 months (around 10/03/2024). documented as of this encounter Visit Diagnoses Not on filedocumented in this encounter Care Teams Patient Companion Relationship Specialty Start Date End Date Malcolm Cid MD PCP - General Family Medicine 01/07/15 documented as of this encounter
--- OUTSIDE RECORDS SUMMARY | 2024-09-05 17:31 | XMS_ITS | Encounter Summary ---
Author Organization [facility] Address [address] [place] [address] Care Team Providers Care Computer Operator Name Role Phone Malcolm Cid MD Primary Care Provider +1- [phone] Source Comments In the event this information is protected by the Federal Confidentiality of Alcohol and Drug AbusePatient Records regulations: The Federal rules restrict any use of the information to criminally investigate or prosecute any alcohol or drug abuse patient.[facility] Encounter Details Date Type Department Care Team (Late st Contact Info) Description 01/01/2022 Patient Msg Rheumatology [address] [place], [place] [id number] [place] [address] [place] [address] Previsit lab reminder Social History Tobacco Use [...] 02/05/2020 Data from: https://www.neighborhoodatlas.[facility]/. Last address used for calculation [...] 10/03/2024 8:00 AM EDT Office Visit Rheumatology [address] [place], [place] [phone] [place] [address] [place], [place] [phone] Return in about 9 months (around 10/03/2024). documented as of this encounter Visit Diagnoses Not on filedocumented in this encounter Care Teams Computer Operator Relationship Specialty Start Date End Date Malcolm Cid MD PCP - General Family Medicine 01/07/15 documented as of this encounter
--- OUTSIDE RECORDS SUMMARY | 2024-09-05 17:31 | XMS_ITS | Encounter Summary ---
Author Organization [facility] Address [address] [place] [address] Care Team Providers Care Load Manager Name Role Phone Malcolm Cid MD Primary Care Provider +1- [phone] Source Comments In the event this information is protected by the Federal Confidentiality of Alcohol and Drug AbusePatient Records regulations: The Federal rules restrict any use of the information to criminally investigate or prosecute any alcohol or drug abuse patient.[facility] Encounter Details Date Type Department Care Team (Late st Contact Info) Description 12/27/2018 Patient Msg Rheumatology [address] [place], [place] [phone] Provider, Ccf reply Social History Tobacco Use [...] 10/03/2024 8:00 AM EDT Office Visit Rheumatology [address] [place] [address] [place] [address] [place] [address] Return in about 9 months (around 10/03/2024). documented as of this encounter Visit Diagnoses Not on filedocumented in this encounter Care Teams Load Manager Relationship Specialty Start Date End Date Malcolm Cid MD PCP - General Family Medicine 01/07/15 documented as of this encounter
--- OUTSIDE RECORDS SUMMARY | 2024-09-05 17:31 | XMS_ITS | Encounter Summary ---
Author Organization [facility] Address [address] [place] [address] Care Team Providers Care Account Financial Manager Name Role Phone Malcolm Cid MD Primary Care Provider +1- [phone] Source Comments In the event this information is protected by the Federal Confidentiality of Alcohol and Drug AbusePatient Records regulations: The Federal rules restrict any use of the information to criminally investigate or prosecute any alcohol or drug abuse patient.[facility] Encounter Details Date Type Department Care Team (Late st Contact Info) Description 01/02/2019 Patient Msg Rheumatology [address] [place] [address] Provider, Ccf Please call our [...] 10/03/2024 8:00 AM EDT Office Visit Rheumatology [address] [place] [address] [place] [address] [place] [address] Return in about 9 months (around 10/03/2024). documented as of this encounter Visit Diagnoses Not on filedocumented in this encounter Care Teams Account Financial Manager Relationship Specialty Start Date End Date Malcolm Cid MD PCP - General Family Medicine 01/07/15 documented as of this encounter
--- OUTSIDE RECORDS SUMMARY | 2024-09-05 17:31 | XMS_ITS | Encounter Summary ---
Author Organization [facility] Address [address] [place] [address] Care Team Providers Care Wood Heel Fitter Machine Name Role Phone Malcolm Cid MD Primary Care Provider +1- [phone] Source Comments In the event this information is protected by the Federal Confidentiality of Alcohol and Drug AbusePatient Records regulations: The Federal rules restrict any use of the information to criminally investigate or prosecute any alcohol or drug abuse patient.[facility] Encounter Details Date Type Department Care Team (Late st Contact Info) Description 12/28/2018 Patient Msg Rheumatology [address] [place] [address] Provider, Ccf Update on insurance [...] 04/26/2017 6:15 PM Orlaia Hurtado RN * Are you blind or [...] 10/03/2024 8:00 AM EDT Office Visit Rheumatology [address] [place] [address] [place] [address] [place] [address] Return in about 9 months (around 10/03/2024). documented as of this encounter Visit Diagnoses Not on filedocumented in this encounter Care Teams Wood Heel Fitter Machine Relationship Specialty Start Date End Date Malcolm Cid MD PCP - General Family Medicine 01/07/15 documented as of this encounter
--- OUTSIDE RECORDS SUMMARY | 2024-09-05 17:31 | XMS_ITS | Encounter Summary ---
Author Organization [facility] Address [address] [place] [address] Care Team Providers Care Train Braker Name Role Phone Malcolm Cid MD Primary Care Provider +1- [phone] Source Comments In the event this information is protected by the Federal Confidentiality of Alcohol and Drug AbusePatient Records regulations: The Federal rules restrict any use of the information to criminally investigate or prosecute any alcohol or drug abuse patient.[facility] Encounter Details Date Type Department Care Team (Late st Contact Info) Description 09/16/[address] [facility] [place] [address] Mariah Hutchins RPh At your next appointment, choose [facility] Social History Tobacco Use Types Packs/Day Years Used Date Smoking Tobacco: Never Smokeless Tobacco: Current Chew PHQ-2 Answer Date Recorded PHQ-2 score 4 08/13/2022 Area Deprivation Index Answer Date Adis rded National Score (1-100), lower number is lower ri sk 87 08/14/2022 State Score (1-10), lower number is lower risk 8 08/14/2022 Data from: https://www.neighborhoodatlas.medicine[facility].edu/. Last address used for calculation [address] 08/14/2022 Sex and Gender Information [...] 10/03/2024 8:00 AM EDT Office Visit Rheumatology [address] [place] [address] [place] [address] [place] [address] Return in about 9 months (around 10/03/2024). documented as of this encounter Visit Diagnoses Not on filedocumented in this encounter Care Teams Train Braker Relationship Specialty Start Date End Date Malcolm Cid MD PCP - General Family Medicine 01/07/15 documented as of this encounter
--- OUTSIDE RECORDS SUMMARY | 2024-09-05 17:31 | XMS_ITS | Encounter Summary ---
Author Organization [facility] Address [facility] [place] [address] Care Team Providers Care Network Associate Name Role Phone Malcolm Cid MD Primary Care Provider +1- [phone] Source Comments In the event this information is protected by the Federal Confidentiality of Alcohol and Drug AbusePatient Records regulations: The Federal rules restrict any use of the information to criminally investigate or prosecute any alcohol or drug abuse patient.[facility] Encounter Details Date Type Department Care Team (Late st Contact Info) Description 12/23/2020 Patient Msg Kidney Medicine [address] [place], [place] [phone] Madonna Serrano, RUBBER DOWN.COLLEGE AND CAREER COUNSELOR [address] [place] [address] RE: BP Social History Tobacco [...] on file 02/05/2020 Data from: https://www.neighborhoodatlas.[facility]/. Last address used for calculation Not [...] 10/03/2024 8:00 AM EDT Office Visit Rheumatology [address] [place], [place] [phone] [place] [address] [place], [place] [phone] Return in about 9 months (around 10/03/2024). documented as of this encounter Visit Diagnoses Not on filedocumented in this encounter Care Teams Network Associate Relationship Specialty Start Date End Date Malcolm Cid MD PCP - General Family Medicine 01/07/15 documented as of this encounter
--- OUTSIDE RECORDS SUMMARY | 2024-09-05 17:31 | XMS_ITS | Encounter Summary ---
Author Organization [facility] Address [address] [place] [address] Care Team Providers Care Prop And Effects Designer Name Role Phone Malcolm Cid MD Primary Care Provider +1- [phone] Source Comments In the event this information is protected by the Federal Confidentiality of Alcohol and Drug AbusePatient Records regulations: The Federal rules restrict any use of the information to criminally investigate or prosecute any alcohol or drug abuse patient.[facility] Encounter Details Date Type Department Care Team (Late st Contact Info) Description 09/15/2021 Patient Msg Rheumatology [address] [place], [place] [phone] [place] [address] [place] [address] Lab results/orders Social History Tobacco Use Types Packs/Day Years Used Date Smoking Tobacco: Never Smokeless Tobacco: Current Chew PHQ-2 Answer Date Recorded PHQ-2 score 3 08/19/2020 Area Deprivation Index Answer Date Adis rded National Score (1-100), lower number is lower ri sk Not on file 02/05/2020 State Score (1-10), lower number is lower risk N ot on file 02/05/2020 Data from: https://www.neighborhoodatlas.[facility]/. Last address used for calculation Not [...] 10/03/2024 8:00 AM EDT Office Visit Rheumatology [address] [place], [place] 01812[address] [place] [address] [place], [place] 9743611 Return in about 9 months (around 10/03/2024). documented as of this encounter Visit Diagnoses Not on filedocumented in this encounter Care Teams Prop And Effects Designer Relationship Specialty Start Date End Date Malcolm Cid MD PCP - General Family Medicine 01/07/15 documented as of this encounter
--- OUTSIDE RECORDS SUMMARY | 2024-09-05 17:31 | XMS_ITS | Encounter Summary ---
Author Organization [facility] Address [address] [place] [address] Care Team Providers Care Director Life Name Role Phone Malcolm Cid MD Primary Care Provider +1- [phone] Source Comments In the event this information is protected by the Federal Confidentiality of Alcohol and Drug AbusePatient Records regulations: The Federal rules restrict any use of the information to criminally investigate or prosecute any alcohol or drug abuse patient.[facility] Encounter Details Date Type Department Care Team (Late st Contact Info) Description 03/16/2018 Patient Msg Infectious Disease [address] [place], [place] [phone] Provider, Ccf RE: Dr Castro reply- please [...] 10/03/2024 8:00 AM EDT Office Visit Rheumatology [address] [place] [address] [place] [address] [place] [address] Return in about 9 months (around 10/03/2024). documented as of this encounter Visit Diagnoses Not on filedocumented in this encounter Care Teams Director Life Relationship Specialty Start Date End Date Malcolm Cid MD PCP - General Family Medicine 01/07/15 documented as of this encounter
--- OUTSIDE RECORDS SUMMARY | 2024-09-05 17:31 | XMS_ITS | Encounter Summary ---
Author Organization [facility] Address [address] [place] [address] Care Team Providers Care Commercial Glazier Name Role Phone Malcolm Cid MD Primary Care Provider +1- [phone] Source Comments In the event this information is protected by the Federal Confidentiality of Alcohol and Drug AbusePatient Records regulations: The Federal rules restrict any use of the information to criminally investigate or prosecute any alcohol or drug abuse patient.[facility] Encounter Details Date Type Department Care Team (Late st Contact Info) Description 03/04/2018 Patient Msg Infectious Disease [address] [place], [place] [phone] Provider, Ccf Dr Castro reply Social History [...] 10/03/2024 8:00 AM EDT Office Visit Rheumatology [address] [place] [address] [place] [address] [place] [address] Return in about 9 months (around 10/03/2024). documented as of this encounter Visit Diagnoses Not on filedocumented in this encounter Care Teams Commercial Glazier Relationship Specialty Start Date End Date Malcolm Cid MD PCP - General Family Medicine 01/07/15 documented as of this encounter
--- OUTSIDE RECORDS SUMMARY | 2024-09-05 17:31 | XMS_ITS | Encounter Summary ---
Author Organization [facility] Address [facility] [place] [address] Care Team Providers Care Health Services Manager Name Role Phone Malcolm Cid MD Primary Care Provider +1- [phone] Source Comments In the event this information is protected by the Federal Confidentiality of Alcohol and Drug AbusePatient Records regulations: The Federal rules restrict any use of the information to criminally investigate or prosecute any alcohol or drug abuse patient.[facility] Encounter Details Date Type Department Care Team (Late st Contact Info) Description 12/25/2020 Get Medical Advice Kidney Medicine [address] [place], [place] [phone] Madonna Serrano, FIRE POT OPERATOR.RENT AND HOUSING INVESTIGATOR [address] [place] [address] RE: Visit Follow Up Question [...] ot on file 02/05/2020 Data from: https://www.neighborhoodatlas.[facility]/. Last address used for calculation Not [...] 10/03/2024 8:00 AM EDT Office Visit Rheumatology [address] [place], [place] 49834[address] [place] [address] [place], [place] 7708811 Return in about 9 months (around 10/03/2024). documented as of this encounter Visit Diagnoses Not on filedocumented in this encounter Care Teams Health Services Manager Relationship Specialty Start Date End Date Malcolm Cid MD PCP - General Family Medicine 01/07/15 documented as of this encounter
--- OUTSIDE RECORDS SUMMARY | 2024-09-05 17:31 | XMS_ITS | Encounter Summary ---
Author Organization [facility] Address [address] [place] [address] Care Team Providers Care Fire Eater Name Role Phone Malcolm Cid MD Primary Care Provider +1- [phone] Source Comments In the event this information is protected by the Federal Confidentiality of Alcohol and Drug AbusePatient Records regulations: The Federal rules restrict any use of the information to criminally investigate or prosecute any alcohol or drug abuse patient.[facility] Encounter Details Date Type Department Care Team (Late st Contact Info) Description 08/12/2018 Patient Msg Rheumatology [address] [place], [place] 49909[address] Provider, Ccf Dr Castro reply to your [...] 10/03/2024 8:00 AM EDT Office Visit Rheumatology [address] [place], [place] 21429[address] [place] [address] [place] [address] Return in about 9 months (around 10/03/2024). documented as of this encounter Visit Diagnoses Not on filedocumented in this encounter Care Teams Fire Eater Relationship Specialty Start Date End Date Malcolm Cid MD PCP - General Family Medicine 01/07/15 documented as of this encounter
--- OUTSIDE RECORDS SUMMARY | 2024-09-05 17:31 | XMS_ITS | Encounter Summary ---
Author Organization [facility] Address [address] [place] [address] Care Team Providers Care Logistics And Planning Manager Name Role Phone Malcolm Cid MD Primary Care Provider +1- [phone] Source Comments In the event this information is protected by the Federal Confidentiality of Alcohol and Drug AbusePatient Records regulations: The Federal rules restrict any use of the information to criminally investigate or prosecute any alcohol or drug abuse patient.[facility] Encounter Details Date Type Department Care Team (Late st Contact Info) Description 08/03/2018 Patient Msg Infectious Disease [address] [place], [place] [phone] Provider, Ccf RE: Dr Castro office- Message. [...] 10/03/2024 8:00 AM EDT Office Visit Rheumatology [address] [place] [address] [place] [address] [place] [address] Return in about 9 months (around 10/03/2024). documented as of this encounter Visit Diagnoses Not on filedocumented in this encounter Care Teams Logistics And Planning Manager Relationship Specialty Start Date End Date Malcolm Cid MD PCP - General Family Medicine 01/07/15 documented as of this encounter
== END 2024-09-05 17:46 | disposition home or self-care (01) ==
LOC: ER 17:28
PROVIDERS: Emergency Provider Emergency Medicine; PCP Family Medicine
DX: S81.812A Laceration without foreign body, left lower leg, initial encounter (principal); W29.3XXA Contact with powered garden and outdoor hand tools and machinery, initial encounter; Y93.H2 Activity, gardening and landscaping; Z96.659 Presence of unspecified artificial knee joint; F17.220 Nicotine dependence, chewing tobacco, uncomplicated
CPT/HCPCS: 12001; 73590; 99283

== ENCOUNTER 2024-12-19 12:35 | Emergency (ER) | payer OTHER, SELFPAY ==
--- OUTSIDE RECORDS SUMMARY | 2024-12-12 11:00 | XMS_ITS | Encounter Summary ---
Author Organization [facility] Address [address] [place] [address] Care Team Providers Care Fisher Hand Line Name Role Phone Malcolm Cid MD Primary Care Provider +1- [phone] Source Comments In the event this information is protected by the Federal Confidentiality of Alcohol and Drug AbusePatient Records regulations: The Federal rules restrict any use of the information to criminally investigate or prosecute any alcohol or drug abuse patient.[facility] Reason for Visit * [place] Prior Authorization (Routine) - AuthorizedSpecialtyDiagnoses / ProceduresReferred By ContactReferred To Contact Diagnoses Idiopathic chronic gout of multiple sites with tophus Procedures [place] [address] [place] [address] Phone: tel: fax: Hematology [address] [place] [address] Phone: tel: Referral IDStatusReasonStart DateExpiration DateVisits RequestedVisits [id number] Encounter Details DateTypeDepartmentCare Team (Latest Contact Info)Zdccvpsvoca19/14/2025 11:00 AM [facility] Hematology/Oncology [address] [place] [address] [place] [address] 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 Last address used for [address]08/14/2022Sex and Gender InformationValueDate Recorded Sex Assigned at TsvvjPmnl88/10/2020 12:50 PM EDTLegal WicXhps64/09/2015 3:20 PM ESTGender IrrcdmbgCtxq59/10/2020 12:50 PM EDTSexual OrientationStraight 11/09/2019 12:50 PM EDTdocumented as of this encounter Last Filed Vital Signs Vital SignReadingTime TakenCommentsBlood Kjrrgdww676/801 3:00 PM EDT Xxefo261812/12/2024 3:00 PM FADKiqjerlwsfn65.5 ??C (97.7 ??F)12/12/2024 11:16 AM EDTRespiratory Lxhr9963 3:00 PM EDTOxygen Vztnvemyov580%12/12/2024 3:00 PM EDTInhaled Oxygen Concentration--Weight--Height--Body Mass Index--documented in this encounter Functional Status * Are you deaf or do you have serious difficulty hearing?AnswerDate of QmkbtdzqcgAvhszlPn98/26/2018 6:15 PM Domi De León RN * Are you blind or do you have serious difficulty seeing, even when wearing glasses?AnswerDate of CmieujpqyzXvfggrAz62/26/2018 6:15 PM Domi De León RN * Do you have serious difficulty walking or climbing stairs?AnswerDate of HdndqtaroyBxrgsyRi24/26/2018 6:15 PM Domi De León RN * Do you have difficulty dressing or bathing?AnswerDate of AssessmentAuthorNo 04/26/2017 6:15 PM Domi De León RN * Because of a physical, mental, or emotional condition, do you have difficulty doing errands alone such as visiting a doctor's office or shopping?AnswerDate of MhlndkqrjxLotbmbVe82/26/2018 6:15 PM Domi De León RN documented as of this encounter Mental Status * Because of a physical, mental, or emotional condition, do you have serious difficulty concentrating, remembering, or making decisions?AnswerEntry Date FltrxaKh26/26/2018 6:15 PM Domi De León RN documented in this encounter Plan of Treatment DateTypeDepartmentCare Team (Latest Contact Info)Brfjuduktvt87/28/2025 11:00 AM [facility] Hematology/Oncology [address] [place] [address] [place] [address] BLQVAQKCR01/11/2025 4:00 PM ESTOffice Visit Rheumatology [address] [place] [address] [place] [address] [place] [address] FU 3 MON?AT 11:40 , 4 OR 4:30 slots . 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) documented in this encounter Administered Medications Medication OrderMAR ActionAction DateDoseRateSite diphenhydrAMINE 50 mg injection (BENADRYL) 50 mg, INTRAVENOUS, ONCE, 1 dose, On Wed12/12/24 at 1130 Indications:Idiopathic chronic gout of multiple sites with qyrguoQyyxa13/14/2025 11:30 AM EDT50 mg methylPREDNISolone sod succinate(PF) 125 mg injection (SOLU-Medrol) 125 mg, INTRAVENOUS, ONCE, 1 dose, On Wed12/12/24 at 1130 Indications:Idiopathic chronic gout of multiple sites with fusolzDkkkt84/14/2025 11:18 AM NPQ513 mg pegloticase 8 mg in NaCl 0.9% 250 mL (KRYSTEXXA) 8 mg, INTRAVENOUS, at 125 mL/hr, Administer over 2 Hours, ONCE, 1 dose, On Wed12/12/24 at 1130, Administer in a healthcare setting by healthcare providers prepared to manage anaphylaxis. Protect From Light. EXP: 12/12/2024 1520 RT Indications:Idiopathic chronic gout of multiple sites with tophusNew Bag/Syringe/Ieerww1012/12/2024 11:57 AM EDT8 mg125 mL/hrdocumented in this encounter Care Teams Team MemberRelationshipSpecialtyStart DateEnd Date Malcolm Cid MD PCP - GeneralFamily Arwssjja95/9/15documented as of this encounter
[2024-12-19 12:39] VITALS: BP 152/89; PULSE 113; TEMP 36.8; O2SAT 96; BMI 27.5
--- NOTE | 2024-12-19 12:45 | PC.NURSE ---
hx of rheumatoid arthritis
--- NOTE | 2024-12-19 12:56 | ED.EXTPRO1 ---
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 and started on medication Has any fever chills or any other concern he does take Vicodin at home and if not effective Related Data Home Medications ?Medication ?Instructions ?Recorded ?Confirmed amlodipine 10 mg tablet 10 mg PO QDAY 08/31/22 09/05/24 clonidine HCl 0.1 mg tablet 0.1 mg PO BID 08/31/22 09/05/24 colchicine 0.6 mg tablet 0.6 mg PO .every other 08/31/22 09/05/24 gabapentin 300 mg capsule 300 mg PO TID 02/15/23 09/05/24 (Neurontin) allopurinol 300 mg tablet 800 mg PO .evening 06/03/23 09/05/24 hydrocodone 5 mg-acetaminophen 325 tab 09/05/24 mg tablet Previous Rx's ?Medication ?Instructions ?Recorded meloxicam 15 mg tablet 15 mg PO DAILY PRN pain #10 tabs 12/19/24 prednisone 50 mg tablet 50 mg PO DAILY 5 days #5 tabs 12/19/24 Allergies Allergy/AdvReac Type Severity Reaction Status Date / Time No Known Drug Allergies Allergy Verified 12/19/24 12:38 Review of Systems ROS Status of ROS 10 or more systems reviewed and unremarkable except as noted in history and below [facility] Medical History Hyperglycemia, drug-induced ?R73.9 - Hyperglycemia, unspecified (ICD-10) ?T50.905A - Adverse effect of unspecified drugs, medicaments and biological substances, initial encounter (ICD-10) Intractable pain ?R52 - Pain, unspecified (ICD-10) Polyarthralgia ?M25.50 - Pain in unspecified joint (ICD-10) Rheumatoid arthritis flare ?M06.9 - Rheumatoid arthritis, unspecified (ICD-10) Gout, arthritis ?M10.9 - Gout, unspecified (ICD-10) Acute hypernatremia ?E87.0 - Hyperosmolality and hypernatremia (ICD-10) Altered mental status ?R41.82 - Altered mental status, unspecified (ICD-10) Sepsis ?A41.9 - Sepsis, unspecified organism (ICD-10) Acute kidney injury ?N17.9 - Acute kidney failure, unspecified (ICD-10) MONO (generalized anxiety disorder) ?F41.1 - Generalized anxiety disorder (ICD-10) Rheumatoid arthritis ?M06.9 - Rheumatoid arthritis, unspecified (ICD-10) Benign essential hypertension ?I10 - Essential (primary) hypertension (ICD-10) Gouty arthritis ?M10.9 - Gout, unspecified (ICD-10) Acute postoperative pain of knee ?G89.18 - Other acute postprocedural pain (ICD-10) ?M25.569 - Pain in unspecified knee (ICD-10) Visit for wound check ?Z51.89 - Encounter for other specified aftercare (ICD-10) Septic prepatellar bursitis of right knee ?M71.161 - Other infective bursitis, right knee (ICD-10) Acute viral syndrome ?B34.9 - Viral infection, unspecified (ICD-10) Diarrhea ?R19.7 - Diarrhea, unspecified (ICD-10) Rheumatoid arthritis flare ?M06.9 - Rheumatoid arthritis, unspecified (ICD-10) Polyarthralgia ?M25.50 - Pain in unspecified joint (ICD-10) Rheumatoid arthritis flare ?M06.9 - Rheumatoid arthritis, unspecified (ICD-10) Weakness ?R53.1 - Weakness (ICD-10) Mild shortness of breath ?R06.02 - Shortness of breath (ICD-10) Headache ?R51.9 - Headache, unspecified (ICD-10) Polyarthralgia ?M25.50 - Pain in unspecified joint (ICD-10) Flare of rheumatoid arthritis ?M06.9 - Rheumatoid arthritis, unspecified (ICD-10) Arthralgia ?M25.50 - Pain in unspecified joint (ICD-10) Drug-seeking behavior ?Z76.5 - Malingerer [conscious simulation] (ICD-10) Surgical History Total knee replacement status ?Z96.659 - Presence of unspecified artificial knee joint (ICD-10) H/O shoulder surgery ?Z98.890 - Other specified postprocedural states (ICD-10) Family History (Updated 07/29/24 @ 23:56 by Kyra Vega RN) Father Family history of hypertension Social History (Updated 07/29/24 @ 23:57 by Kyra Vega RN) Within the past year, how often did you have a drink containing alcohol: monthly or less Smoking status: Never smoker Nicotine containing products detail: chew tobacco Non-prescribed substance use: denies use Known occupational exposures/hazards: No Highest level of school completed/degree received: Associate degree: academic program Are you now , , , , never or living with a partner: In a typical week, how many times do you talk on the telephone with family, friends, or neighbors: 3 or more times per week How often do you get together with friends or relatives: 3 or more times per week Little interest or pleasure in doing things: not at all Feeling down, depressed, or hopeless: not at all Feel stressed/tense/nervous/anxious/difficulty sleeping: decline to answer Do you think of yourself as: straight/heterosexual Gender Identity: male Exam Narrative Exam Narrative: Nurses notes and vital signs reviewed and patient is not hypoxic. Extremities: Upper and lower extremity showed that the patient have multiple joint deformities due to rheumatoid arthritis but there is no redness no hotness no signs of infection there is only inflammation mostly in the anterior knee bilaterally as well as multiple tenderness points in his feet and toes Good anterior tibial pulse in both feet and there is no vascular injury detected General: Well-appearing and in no apparent distress. Skin: Warm, dry, no pallor noted. No rash. Head: Normocephalic, atraumatic. Neck: Supple, non-tender. Cardiovascular: Regular Rate and Rhythm without murmur, gallop or rub. Respiratory: No accessory muscle use or respiratory distress. Lungs are clear to auscultation, no wheezing, rales or rhonchi Neurological: A&O x4. No cranial nerve dysfunction observed. No truncal ataxia. Moves all extremities. Sensation intact. Psychiatric: Cooperative and interactive. Normal mood and affect. Constitutional Vital Signs, click to edit/add: Last Vital Signs Temp 98.2 F 12/19/24 12:39 Pulse 113 H 12/19/24 12:39 Resp 20 12/19/24 12:39 BP 152/89 H 12/19/24 12:39 Pulse Ox 96 12/19/24 12:39 O2 Del Method Room Air 12/19/24 12:39 Course Vital Signs Vital signs: Vital Signs Temperature 98.2 F 12/19/24 12:39 Pulse Rate 113 H 12/19/24 12:39 Respiratory Rate 20 12/19/24 12:39 Blood Pressure 152/89 H 12/19/24 12:39 Pulse Oximetry 96 12/19/24 12:39 Oxygen Delivery Method Room Air 12/19/24 12:39 Temperature 98.2 F 12/19/24 12:39 Pulse Rate 113 H 12/19/24 12:39 Respiratory Rate 20 12/19/24 12:39 Blood Pressure 152/89 H 12/19/24 12:39 Pulse Oximetry 96 12/19/24 12:39 Oxygen Delivery Method Room Air 12/19/24 12:39 MDM - Extremity (Nontraumatic) MDM Narrative Medical decision making narrative: Scented to us with possible flareup of his rheumatoid arthritis he was started on Mobic as well as prednisone he also was provided 1 dose of Dilaudid The patient to follow-up with the primary care within 2 to 3 days and to come back to the ER in case of any worsening of the current symptoms or any new symptoms or concerns Discharge Plan Discharge Chief Complaint: Extremity Problem, Nontraumatic Clinical Impression: Rheumatoid arthritis flare Patient Disposition: Home, Self-Care Time of Disposition Decision: 13:00 Condition: Good Prescriptions / Home Meds: New prednisone 50 mg tablet 50 mg PO DAILY 5 Days Qty: 5 0RF meloxicam 15 mg tablet 15 mg PO DAILY PRN (Reason: pain) Qty: 10 0RF No Action gabapentin [Neurontin] 300 mg capsule 300 mg PO TID allopurinol 300 mg tablet 800 mg PO .evening hydrocodone-acetaminophen 5-325 mg tablet colchicine 0.6 mg tablet 0.6 mg PO .every other clonidine HCl 0.1 mg tablet 0.1 mg PO BID amlodipine 10 mg tablet 10 mg PO QDAY Print Language: [place] Instructions: Arthritis (ED) Referrals: LEYDI ACEVES [Primary Care Provider, Family Practice] - 1 week Discharge Date/Time: 12/19/24 13:21
[2024-12-19] MEDS: METHYLPREDNISOLONE SOD SUCC PF 125 MG/2 ML VIAL IM (13:07)
[2024-12-19] MEDS: HYDROMORPHONE HCL 0.5 MG/0.5 ML SYRINGE IM (13:07)
--- OUTSIDE RECORDS SUMMARY | 2024-12-19 13:27 | XMS_ITS | Patient Health Record ---
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 Name Role Phone Malcolm Cid MD Primary Care Provider Juan José Casey Unavailable [phone] Reason For Referral No Information Medications Medication SIG (Take, Route, Frequency, Duration) Notes Start Date End Date Status gabapentin ActiveoxyCODONEActiveQUEtiapineActivetraMADolActiveALPRAZolamActivedoxycycline ActiveescitalopramActivecolchicineActive Social History Tobacco Use: Social History Observation Description Date Details (start date - stop date) Never Smoker NA - NA Smoking History Question Answer Notes Smoking Status NonSmoker Problems Problem Type SNOMED Code ICD Code Onset Dates Problem Status W/U Status Risk Notes Problem Contusion of right k nee (49388144855017050) Contusion of right knee, subsequent encounter (S80.01XD) ActiveconfirmedProblemEnthesopathy of knee (99649200)Knee bursitis, right (M70.51)[id number] gout of right knee, 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)ActiveconfirmedProblemContusion of knee (18235152) Contusion of knee, right (S80.01XA)InactiveconfirmedProblemInfected prepatellar bursa, right (M71.161)Inactiveconfirmed Plan Of Treatment Pending Test Test Name Order Date Cell count 02/19/2023 Crystals 02/19/2023 GRAM STAIN 02/19/2023 Work Slip Return to Work/ Full Duty 09/2023 Work Slip; Off work 02/19/2023 ANAEROBIC CULTURE 02/19/2023 AEROBIC CULTURE 02/19/2023 Insurance Providers Payer Name Payer Address Payer Phone Subscriber Number Group Number Insured Name Patient Relationship to Insured Coverage Start Date Coverage End Date Medicaid [employer] [place] [address] [place] [id number] DORADO Self - patient is the insured Medical (General) History Medical History History ICD Code Depression High Blood PressureAnxietySurgical History Surgery Date(Month/Year) Knee arthroscopy 01/2023 Shoulder surgery, left 03/2021
--- OUTSIDE RECORDS SUMMARY | 2024-12-19 13:27 | XMS_ITS | Encounter Summary ---
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 Name Role Phone Malcolm Cid MD Primary Care Provider [phone] Malcolm Cid MD Unavailable Merry Paz LPN Unavailable Encounter Details DateTypeDepartmentCare Team (Latest Contact Info)Srpuapuxtdg73/17/2025Patient Outreach [facility] [address] [place] [phone] Merry Paz LPN [address] [place] [address] Social History Tobacco UseTypesPacks/DayYears UsedDateSmoking Tobacco: Every DayCigarettes1.5 16.8Started: 02/26/2008Smokeless Tobacco: CurrentChewAlcohol UseStandard Drinks/WeekCommentsYes6 (1 standard drink = 0.6 oz pure alcohol)2 or 3 drinks in one sitting. Maybe two or three times per [id number] Health LiteracyAnswerDate RecordedHow often do you need to have someone help you when you read instructions, pamphlets, or other written material from your doctor or pharmacy? Never10/10/2023Humiliation, Afraid, Rape, and Kick questionnaireAnswerDate RecordedWithin the last year, have you been afraid of your partner or ex-partner?No09/14/2022Within the last year, have you been humiliated or emotionally abused in other ways by your partner or ex-partner?No09/14/2022 Within the last year, have you been kicked, hit, slapped, or otherwise physically hurt by your partner or ex-partner?No09/14/2022Within the last year, have you been raped or forced to have any kind of sexual activity by your part ner or ex-partner?No09/14/2022Social Connection and Isolation PanelAnswerDate RecordedIn a typical week, how many times do you talk on the phone with family, friends, or neighbors?Three times a week10/10/2023How often do you get together with friends or relatives?More than three times a week10/10/2023How often do you attend amish or shinto services?More than 4 times per year10/10/2023o you belong to any clubs or organizations such as amish groups, unions, fraternal or athletic groups, or school groups?Yes10/10/2023How often do you attend meetings of the clubs or organizations you belong to?More than 4 times per year10/10/2023 Are you , , , , never , or living with a partner?Agqwqsttp99/11/2024UDIT-CAnswerDate RecordedQ1: How often do you have a drink containing alcohol?Monthly or less10/10/2023Q2: How many drinks containing alcohol do you have on a typical day when you are drinking?3 or Q3: How often do you have six or more drinks on one occasion?Never10/10/2023Overall Financial Resource Strain (CARDIA)AnswerDate RecordedHow hard is it for you to pay for the very basics like food, housing, medical care, and heating?Not very hard10/10/2023HQ-2AnswerDate RecordedPatient Health Questionnaire-2 Score0 09/13/2024[facility] [place] [facility] - Occupational Stress QuestionnaireAnswerDate RecordedDo you feel stress - tense, restless, nervous, or anxious, or unable to sleep at night because yourmind is troubled all the time - these days?Very much10/10/2023Exercise Vital SignAnswerDate RecordedOn average, how many days per week do you engage in moderate to strenuous exercise (like a brisk walk)?5 days10/10/2023On average, how many minutes do you engage in exercise at this level?60 min10/10/2023Hunger Vital SignAnswerDate Recorded Within the past 12 months, you worried that your food would run out before you got the money to buymore.Sometimes true10/10/2023Within the past 12 months, the food you bought just didn't last and you didn't have money to get more.Never true10/10/2023RAPARE - TransportationAnswerDate RecordedIn the past 12 months, has lack of transportation kept you from medical appointments or from getting medications?No10/10/2023In the past 12 months, has lack of transportation kept you from meetings, work, or from getting things needed for daily living?No 10/10/2023Housing Stability Vital SignAnswerDate RecordedIn the last 12 months, was there a time when you were not able to pay the mortgage or rent on time?No 09/14/2022In the last 12 months, how many places have you lived?In the last 12 months, was there a time when you did not have a steady place to sleep or slept in [facility] (including now)?No09/14/2022Housing Stability Vital SignAnswerDate RecordedIn the last 12 months, was there a time when you were not able to pay the mortgage or rent on time?Yes10/10/2023In the past 12 months, how many times have you moved where you were living?t any time in the past 12 months, were you homeless or living in a alf (including now)?No 10/10/2023Sex and Gender InformationValueDate RecordedSex Assigned at BirthMale 09/08/2022 2:56 PM EDTLegal VirAoef2705/13/2022 6:55 PM EDTGender IdentityMale 09/08/2022 2:56 PM EDTSexual NnatfpuijcsMerbkrup25/11/2023 2:56 PM EDTdocumented as of this encounter Progress Notes * Merry Paz LPN - 12/15/2024 10:45 AM EDT Spoke to pt for outreach. Pt states doing ok, the season is bad for his flare ups but he is doing ok. Pt states he has had 3 infusions so far. States he has not really noticed a difference but says he was told it can take a few months to become effectively noticeable. I ask pt about Flu shot plans and pt states he does not plan on getting the Flu shot. Pt knows he needs appt scheduled in Decemberfor his 3 month check-up. He plans on scheduling this in December because he does not know his workschedule yet. Denies any needs or concerns at this time. Encouraged to call if any arise. documented in this encounter Plan of Treatment Not on file documented as of this encounter Visit Diagnoses Diagnosis Stage 3a chronic kidney disease ([facility])- Primary Essential hypertension Unspecified essential hypertension documented in this encounter Care Teams Team MemberRelationshipSpecialtyStart DateEnd Date Malcolm Cid MD [address] [address] PCP - GeneralFamily Medicine07/29/22 Malcolm Cid MD [address] [address] PCP - [facility]05/30/22 Merry Paz LPN [address] [address] 05/19/24documented as of this encounter
--- OUTSIDE RECORDS SUMMARY | 2024-12-19 13:27 | XMS_ITS | Clinical Summary ---
Author Organization [facility] Address [address] [place] [address] Care Team Providers Care Accounting Manager Name Role Phone Malcolm Cid MD Primary Care Provider [phone] Allergies No known active allergies Medications MedicationSigDispense QuantityRefillsLast FilledStart DateEnd DateStatus amLODIPine (NORVASC) 5 mg tablet Take 1 tablet by mouth twice daily. 180 tablet ctive cloNIDine HCl (CATAPRES) 0.1 mg tablet Take 0.1 mg by mouth two times a day.03/11/2021ctive febuxostat (ULORIC) 40 mg tab Indications:Chronic tophaceous goutTake 1 tablet by mouth once daily. 90 tablet 5Active colchicine 0.6 mg tablet Indications:Idiopathic chronic gout of multiple sites with tophusTake 1 tablet by mouth once daily. 90 tablet 5Active folic acid 1 mg tablet Indications:Chronic tophaceous goutTake 1 tablet by mouth once daily. 30 tablet 5Active methotrexate 2.5 mg tablet Indications:Chronic tophaceous goutTake 6 tablets by mouth one time a week. Hold if you have infection or fevers 100.4 F or higher. May resume once infection resolved. LABS EVERY 3 MONTHS 72 tablet 511/5Active predniSONE (DELTASONE) 5 mg tablet Take 6 tab in AM on day 1 then reduce dose by 1 tablet every day until off 21 tablet /03/2024Discontinued Active Problems ProblemNoted DateDiagnosed DateIdiopathic chronic gout of multiple sites with gsiccs0603/20/2017Rheumatoid arthritis of multiple sites with negative rheumatoid wsgyyz2505/10/2017Nicotine use disorder, F17.Gout04/26/2017Chronic pain 04/26/2017 Resolved Problems ProblemNoted DateDiagnosed DateResolved DateRheumatoid arthritis flare04/25/2017 05/10/2017 Encounters DateTypeDepartmentCare FpqaIpxpykmauij88/14/2025 11:[facility] [address] [place] [address] 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)11/30/2024 Get Medical Advice Rheumatology [address] [place] [address] Delmy Castro MD Uric Acid Level11/28/2024 11:00 AM [facility] [address] [place] [address] [place] [address] 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)11/14/2024 11:00 AM [facility] Hematology/Oncology [address] [place] [address] [place] [address] 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)11/13/2024 Results Follow-Up Rheumatology [id number] [place] [address] Delmy Castro MD 11/13/2024Telephone Hematology/Oncology [address] [place] [address] [place] [address] Kusum Covarrubias RN Patient Update; Results (Uric Acid )11/13/20246392Crllnm05/15/2025Telephone Rheumatology [address] [facility] [place] [address] Delmy Castro MD 11/08/2024Telephone Hematology/Oncology [address] [place] [address] [place] [address] Kusum Covarrubias, RN Orders (Krystexxa Orders)11/03/2024 Get Medical Advice Rheumatology [address] [place] [address] Delmy Castro MD Reply11/02/2024 Get Medical Advice Rheumatology [address] [place] [address] Delmy Castro MD Ybxbbwdbye19/11/2025 Patient Msg Hematology/Oncology [address] [place] [address] Provider, Ccf Appointment Cancellation Dlimxqb6210/09/2024 Patient Msg Hematology/Oncology [address] [place] [address] Provider, Ccf Appointment Cancellation Pnmjmpl8610/09/2024 Patient Msg Hematology/Oncology [address] [place] [address] Provider, Ccf Appointment Cancellation Sgpsnwx1710/09/2024 Get Medical Advice Rheumatology [address] [place] [address] Delmy Castro MD Hksizpod82/08/2025Tephone [facility] [address] [place] [address] Delmy Castro MD Insurance Authorization (/Preferred Drug wP2P: NICK CARDOZA JUDITH D)10/03/2024 8:00 AM EDTOffice Visit Rheumatology [id number] [place] [address] Delmy Castro MD Chronic tophaceous gout (Primary Dx); Other secondary osteoarthritis of multiple sites; Encounter for long-term (current) use of medications; Idiopathic chronic gout of multiple sites with tgfzgl5610/03/2024[facility] [address] [place] [address] Delmy Castro MD Insurance Authorization (Febuxostat)10/02/2024Travelfrom Last 3 Months Family History Medical HistoryRelationCommentsgoutMaternal Uncleseveral uncles with gout rheumatoid arthritisOtherfibromyalgiaSisterlupusSisterRelationStatusComments Maternal UncleOtherSister Social History Tobacco UseTypesPacks/DayYears UsedDateSmoking Tobacco: NeverSmokeless Tobacco: CurrentChew Tobacco Cessation:Ready to Q uit: Not Asked; Counseling Given: Not Answered PHQ-2AnswerDate RecordedPHQ-2 xluul910rea Deprivation IndexAnswerDate RecordedNational Score (1-100), lower number is lower lcdz144908/14/2022State Score (1-10), lower number is lower jfwd82908/14/2022ata from: https://www.neighborhoodatlas.medicine.[facility]/. Last address used for [address]timksuz[address] [facility]14/2022Sex and Gender InformationValueDate Recorded Sex Assigned at AuhbfKbgs31/10/2020 12:50 PM EDTLegal YwiSxvk16/09/2015 3:20 PM ESTGender DrvoqlpaArij45/10/2020 12:50 PM EDTSexual OrientationStraight 11/09/2019 12:50 PM EDT Last Filed Vital Signs Vital SignReadingTime TakenCommentsBlood Cvfdzgzo169/801 3:00 PM EDT Eorov598212/12/2024 3:00 PM XMEOluasiotzyl00.5 ??C (97.7 ??F)12/12/2024 11:16 AM EDTRespiratory Sdil4999 3:00 PM EDTOxygen Pymcrwffsm471%12/12/2024 3:00 PM EDTInhaled Oxygen Concentration--Ymncmh154.3 kg (221 lb 1.9 oz)10/03/2024 7:57 AM BVIKihxcs009 cm (6' 2.02 )10/03/2024 7:57 AM EDTBody Mass Index28.38 10/03/2024 7:57 AM EDT Plan of Treatment DateTypeDepartmentCare Team (Latest Contact Info)Bmvpksetzzj14/28/2025 11:00 AM EDTInfusion Center Hematology/Oncology [address] [place] [address] [place] [address] TPLGDKWTP77/11/2025 4:00 PM ESTOffice Visit Rheumatology [address] [place], [place] [phone] [place] [address] [place], [place] [id number] FU 3 MON?AT 11:40 , 4 OR 4:30 slots . ThxHealth MaintenanceDue DateLast Done CommentsCovid-19 Vaccine (#1)1995Annual PCP Team Chronic Disease Visit 02/26/2008nxiety Dghiwjiei21/28/2008Depression Xqplhjxzy47/28/2008HIV Screening 02/26/2008Hepatitis B Vaccine (1 of 3 - 19+ 3-dose series)2009Pneumococcal Vaccine (1 of 2 - PCV)2009Shingrix Vaccine (1 of 2)2009HPV Vaccine (1 - 3-dose SCDM series)2017Influenza Vaccine (#1)/, 12/23/2017Serum Lcvebazawj02/15/202609/, 11/13/2024, 10/02/2024, Additional history existsDTaP,Tdap,Td Vaccine (6 - Td or Tdap)06/01/2026 06/01/2016, 10/20/1993, 07/26/1991, Additional history existsHepatitis C HinaekoqoYxjkglrts30/02/2021 Procedures Procedure NamePriorityDate/TimeAssociated DiagnosisCommentsURIC ACID BLOOD Hmoqsvq1612/11/2024 3:01 PM EDT Chronic tophaceous gout URIC ACID DVIMYQkdpona27/30/2025 11:59 AM EDT Idiopathic chronic gout of multiple sites with tophus URIC ACID AATJQBvhkeot25/29/2025 2:33 PM EDT Chronic tophaceous gout SED RATE VWQGAOXUOBZntdkmr36/15/2025 3:03 PM EDT Chronic tophaceous gout CREATININE TRSMbvfkys49/15/2025 3:03 PM EDT Chronic tophaceous gout C-REACTIVE PROTEIN (CRP)Lminyst1911/13/2024 3:03 PM EDT Chronic tophaceous gout CBC + DNRSRjqwxfx46/15/2025 3:03 PM EDT Chronic tophaceous gout ALBUMIN ZCBTidgqmg52/15/2025 3:03 PM EDT Chronic tophaceous gout ALT/QPDAHmtuyot86/15/2025 3:03 PM EDT Chronic tophaceous gout AST/SGOT PJTIwyzeyw30/15/2025 3:03 PM EDT Chronic tophaceous gout URIC ACID PTBJZUuwbrmn09/15/2025 3:03 PM EDT Chronic tophaceous gout USVGRFSDVAPfwjauh76/12/2025 2:16 PM EDT Chronic tophaceous gout ATQSCDUOPVErembpm32/12/2025 2:16 PM EDT Chronic tophaceous gout G-6-PD PACBQQXZRJOHUvwwzrm14/12/2025 2:16 PM EDT Chronic tophaceous gout G6PD ZNQUPAXHGJLZTcdjqul20/12/2025 2:16 PM EDT Chronic tophaceous gout URIC ACID GBDDRShienxy28/04/2025 1:44 PM EDT Chronic tophaceous gout Encounter for long-term (current) use of medications SED RATE LCXCDVBKTHNfwcqdl62/04/2025 1:44 PM EDT Chronic tophaceous gout Encounter for long-term (current) use of medications CREATININE BKSJgovigp70/04/2025 1:44 PM EDT Chronic tophaceous gout Encounter for long-term (current) use of medications C-REACTIVE PROTEIN (CRP)Pzvmixe1110/02/2024 1:44 PM EDT Chronic tophaceous gout Encounter for long-term (current) use of medications CBC + VQSIRgchqkt10/04/2025 1:44 PM EDT Chronic tophaceous gout Encounter for long-term (current) use of medications ALBUMIN AFHDnbarzk49/04/2025 1:44 PM EDT Chronic tophaceous gout Encounter for long-term (current) use of medications ALT/INUPJsmugac95/04/2025 1:44 PM EDT Chronic tophaceous gout Encounter for long-term (current) use of medications AST/SGOT RZOSuoirbk51/04/2025 1:44 PM EDT Chronic tophaceous gout Encounter for long-term (current) use of medications *HEP C UHJrtgyey38/02/2021 10:12 AM EST Encounter for long-term (current) use of medications from Last 3 Months or Most Recently Relevant to Health Maintenance Results * (ABNORMAL) URIC ACID (12/11/2024 3:01 PM EDT) Only the most recent of5 resultswithin the time period is included. ComponentValueRef RangeTest MethodAnalysis TimePerformed AtPathologist Signature Uric Acid<0.2(L)4.0 - 8.1 mg/dL12/11/2024 3:21 PM EDTNORTHCOAST FOREST [facility] LABSpecimen (Source)Anatomical Location / LateralityCollection Method / VolumeCollection TimeReceived TimeBloodBLOOD SPECIMEN / UnknownVenipuncture / Naulheh6512/11/2024 3:01 PM EDT1 3:01 PM EDT Narrative Authorizing ProviderResult TypeResult StatusDelmy Castro MDLABORATORYFinal ResultPerforming OrganizationAddressCity/State/ZIP CodePhone Number [facility] [address] [place] [address] * SEDIMENTATION RATE, WESTERGREN (11/13/2024 3:03 PM EDT) Only the most recent of2 resultswithin the time period is included. ComponentValueRef RangeTest MethodAnalysis TimePerformed AtPathologist Signature Sed Rate, Myuypctgpw10 - 15 mm/hr11/14/2024 12:57 AM EDTCCLEVELAND [facility] LABSpecimen (Source)Anatomical Location / LateralityCollection Method / VolumeCollection TimeReceived TimeBloodBLOOD SPECIMEN / UnknownVenipuncture / Zpxdkjd5411/13/2024 3:03 PM EDT11/13/2024 3:03 PM EDT Narrative Authorizing ProviderResult TypeResult StatusJudevelina Castro MDLABORATORYFinal ResultPerforming OrganizationAddressCity/State/ZIP CodePhone Number [facility] [address] [facility] Desk [address] [address], * (ABNORMAL) CREATININE BLD (11/13/2024 3:03 PM EDT) Only the most recent of2 resultswithin the time period is included. ComponentValueRef RangeTest MethodAnalysis TimePerformed AtPathologist Signature Creatinine1.29(H)0.73 - 1.22 mg/dL11/13/2024 3:31 PM [facility] LABEstimated Glomerular Filtration Rate75>=60 mL/min/1.73m 11/13/2024 3:31 PM [facility] LABComment:Estimated Glomerular Filtration Rate (eGFR) is calculated using the 2020 CKD-EPI creatinine equation. This equation utilizes serum creatinine, sex, and age as parameters. The creatinine assay has traceable calibration to isotope dilution- mass spectrometry. Refer to KDIGO guidelines for clinical interpretation. In patients with unstable renal function, e.g. those with acute kidney injury, the eGFRmay not accurately reflect actual GFR.Specimen (Source)Anatomical Location / LateralityCollection Method / VolumeCollection TimeReceived TimeBloodBLOOD SPECIMEN / UnknownVenipuncture / Ifvyjvc7911/13/2024 3:03 PM EDT11/13/2024 3:03 PM EDT Narrative Authorizing ProviderResult TypeResult StatusDelmy Castro MDLABORATORYFinal ResultPerforming OrganizationAddressCity/State/ZIP CodePhone Number [facility] [address] [place] [address] * COMPLETE BLOOD COUNT AND DIFFERENTIAL (11/13/2024 3:03 PM EDT) Only the most recent of2 resultswithin the time period is included. ComponentValueRef RangeTest MethodAnalysis TimePerformed AtPathologist Signature WBC6.643.70 - 11.00 k/uL11/13/2024 3:08 PM EDTNORTHARPER UNIVERS[facility] LABRBC4.704.20 - 6.00 m/uL11/13/2024 3:08 PM EDTNOGREENB[facility] LHYPhqxoyziyd04.213.0 - 17.0 g/dL11/13/2024 3:08 PM EDTWE[facility] PBRZhsrlekkny87.839.0 - 51.0 %11/13/2024 3:08 PM EDT [facility] MGUCHN49.880.0 - 100.0 fL11/13/2024 3:08 PM EDT[facility] LUOPHE15.226.0 - 34.0 pg11/13/2024 3:08 PM EDTNOGREENBRIER VALLEY [facility] MGESREJ59.830.5 - 36.0 g/dL11/13/2024 3:08 PM EDT[facility] LABRDW-CV13.211.5 - 15.0 %11/13/2024 3:08 PM EDGR[facility] LABPlatelet Tefks125746 - 400 k/uL 11/13/2024 3:08 PM EDTNOGREENBRIER VALLEY [facility] FQZBIF21.59.0 - 12.7 fL 11/13/2024 3:08 PM EDTWE[facility] LABNeutrophils %55.9% 11/13/2024 3:08 PM EDTWE[facility] LABAbs Neut3.711.45 - 7.50 k/uL11/13/2024 3:08 PM EDGR[facility] LABLymphocytes %36.7%11/13/2024 3:08 PM EDTWE[facility] LABAbs Lymph2.44 1.00 - 4.00 k/11/13/2024 3:08 PM EDNOGREENB[facility] LAB Monocytes %6.3%11/13/2024 3:08 PM EDGR[facility] LABAbs Mono0.42<0.87 k/uL11/13/2024 3:08 PM EDTNOGREENBRIER VALLEY [facility] LAB Eosinophils %0.5%11/13/2024 3:08 PM EDGR[facility] LABAbs Eosin0.03<0.46 /11/13/2024 3:08 PM [facility] LAB Basophils %0.3%11/13/2024 3:08 PM EDGR[facility] LABAbs Baso<0.03<0.11 /11/13/2024 3:08 PM EDGR[facility] LAB Immature Granulocytes %0.3%11/13/2024 3:08 PM EDGR[facility] LABAbs Immature Gran<0.03<0.10 /11/13/2024 3:08 PM EDGR[facility] LABNRBC0.0/100 WBC11/13/2024 3:08 PM EDGR[facility] LABAbsolute nRBC<0.01<0.01 /11/13/2024 3:08 PM EDT [facility] LABDiff WiyrBnaa48/15/2025 3:08 PM EDT [facility] LABSpecimen (Source)Anatomical Location / LateralityCollection Method / VolumeCollection TimeReceived TimeBloodBLOOD SPECIMEN / UnknownVenipuncture / Junrdma9511/13/2024 3:03 PM EDT11/13/2024 3:03 PM EDT Narrative Authorizing ProviderResult TypeResult StatusDelmy Castro MDLABORATORYFinal ResultPerforming OrganizationAddressCity/State/ZIP CodePhone Number [facility] [address] [place] [address] * C-REACTIVE PROTEIN (11/13/2024 3:03 PM EDT) Only the most recent of2 resultswithin the time period is included. ComponentValueRef RangeTest MethodAnalysis TimePerformed AtPathologist Signature CRP<0.3<0.9 mg/dL11/14/2024 2:00 PM EDTCCLEVELAND [facility]INIC [facility] LABSpecimen (Source)Anatomical Location / LateralityCollection Method / VolumeCollection TimeReceived TimeBloodBLOOD SPECIMEN / UnknownVenipuncture / Shpysya3911/13/2024 3:03 PM EDT11/13/2024 3:03 PM EDT Narrative Authorizing ProviderResult TypeResult StatusDelmy Castro MDLABORATORYFinal ResultPerforming OrganizationAddressCity/State/ZIP CodePhone Number [facility] [address] [address], * ALBUMIN (11/13/2024 3:03 PM EDT) Only the most recent of2 resultswithin the time period is included. ComponentValueRef RangeTest MethodAnalysis TimePerformed AtPathologist Signature Albumin4.53.9 - 4.9 g/dL11/13/2024 3:31 PM EDTNORTHARPER UNIVERSITY [facility]PITAL LABSpecimen (Source)Anatomical Location / LateralityCollection Method / Volume Collection TimeReceived TimeBloodBLOOD SPECIMEN / UnknownVenipuncture / Unknown 11/13/2024 3:03 PM EDT11/13/2024 3:03 PM EDT Narrative Authorizing ProviderResult TypeResult StatusDelmy Castro MDLABORATORYFinal ResultPerforming OrganizationAddressCity/State/ZIP CodePhone Number [facility] [address] [place] [address] * ASPARTATE AMINOTRANSFERASE/SGOT (11/13/2024 3:03 PM EDT) Only the most recent of2 resultswithin the time period is included. ComponentValueRef RangeTest MethodAnalysis TimePerformed AtPathologist Signature BCP3332 - 40 U/L11/13/2024 3:31 PM EDTWE[facility] Specimen (Source)Anatomical Location / LateralityCollection Method / Volume Collection TimeReceived TimeBloodBLOOD SPECIMEN / UnknownVenipuncture / Unknown 11/13/2024 3:03 PM EDT11/13/2024 3:03 PM EDT Narrative Authorizing ProviderResult TypeResult StatusDelmy Castro MDLABORATORYFinal ResultPerforming OrganizationAddressCity/State/ZIP CodePhone Number [facility] [address] [place] [address] * (ABNORMAL) ALANINE AMINOTRANSFERASE / SGPT (11/13/2024 3:03 PM EDT) Only the most recent of2 resultswithin the time period is included. ComponentValueRef RangeTest MethodAnalysis TimePerformed AtPathologist Signature ALT55(H)10 - 54 U/L11/13/2024 3:31 PM EDTWE[facility] Specimen (Source)Anatomical Location / LateralityCollection Method / Volume Collection TimeReceived TimeBloodBLOOD SPECIMEN / UnknownVenipuncture / Unknown 11/13/2024 3:03 PM EDT11/13/2024 3:03 PM EDT Narrative Authorizing ProviderResult TypeResult StatusDelmy Castro MDLABORATORYFinal ResultPerforming OrganizationAddressCity/State/ZIP CodePhone Number [facility] [address] [place] [address] * G-6-PD QUANTITATIVE (10/10/2024 2:16 PM EDT)ComponentValueRef RangeTest Method Analysis TimePerformed AtPathologist ZkxcxwfucPlndhep-0-Xyfnyjdxe Dehydrogenase (G-6-PD)13.09.8 - 15.5 U/g 10/11/2024 3:49 PM EDTCCLEVELAND CLINIC [facility]OR [facility] LABComment:This test was developed, and its performance characteristics determined by the [facility] Department of Pathology and Laboratory Medicine. It has not been cleared or approved by the FDA. The [facility] Department of Pathology and Laboratory Medicine is regulated under CLIA as qualified to perform high-complexity testing. This test is used for clinical purposes. It should not be regarded as investigational or for research.Specimen (Source)Anatomical Location / LateralityCollection Method / VolumeCollection TimeReceived TimeBloodBLOOD SPECIMEN / UnknownVenipuncture / Lkbywyk9110/10/2024 2:16 PM EDT10/10/2024 2:16 PM EDT Narrative Authorizing ProviderResult TypeResult StatusDelmy Castro MDLABORATORYFinal ResultPerforming OrganizationAddressCity/State/ZIP CodePhone Number [facility] [address] [place] [address], * HEMOGLOBIN (10/10/2024 2:16 PM EDT) Only the most recent of2 resultswithin the time period is included. ComponentValueRef RangeTest MethodAnalysis TimePerformed AtPathologist Signature Tpbuewxqcq59.113.0 - 17.0 g/dL10/11/2024 12:19 PM EDTCCLEVELAND [facility] LABSpecimen (Source)Anatomical Location / LateralityCollection Method / VolumeCollection TimeReceived TimeBloodBLOOD SPECIMEN / UnknownVenipuncture / Qvrzipm0410/10/2024 2:16 PM EDT10/10/2024 2:16 PM EDT Narrative Authorizing ProviderResult TypeResult StatusDelmy Castro MDLABORATORYFinal ResultPerforming OrganizationAddressCity/State/ZIP CodePhone Number [facility] [place] [address], * HEP REMOTE PANEL BL (04/02/2020 10:12 AM EST)ComponentValueRef RangeTest MethodAnalysis TimePerformed AtPathologist SignatureHep B Core Ab, Total SelldmhoUetzzuko30/02/2021 7:30 PM [facility] Antibody AXCgdifyzuYxwrghkc52/02/2021 7:31 PM [facility] JGjNtObnxyoljOqcliajx13/02/2021 7:31 PM [facility] LaboratoriesHep B Surface Ab, QtjhEvrwbbekSdwgxudl08/02/2021 7:31 PM [facility] LaboratoriesComment:NEGATIVESpecimen (Source)Anatomical Location / Laterality Collection Method / VolumeCollection TimeReceived TimeBloodBLOOD SPECIMEN / Kxcgkgp1104/02/2020 10:12 AM EST04/02/2020 10:14 AM EST Narrative Authorizing ProviderResult TypeResult StatusDeshawn Olea PARKING [employer] SUPERVISOR.CNPLABORATORY Final ResultPerforming OrganizationAddressCity/State/ZIP CodePhone Number [facility] [address] [address] [facility] [address] [place] [address] from Last 3 Months or Most Recently Relevant to Health Maintenance Insurance Care Teams Team MemberRelationshipSpecialtyStart DateEnd Date Malcolm Cid MD PCP - GeneralFamily Cjogzyyu73/9/15
--- OUTSIDE RECORDS SUMMARY | 2024-12-19 13:27 | XMS_ITS | Clinical Summary ---
Author Organization [facility] Address [address] [place] [address], [address] [place] [address] Care Team Providers Care Fish Frog Or Oyster Farmer Name Role Phone Malcolm Cid MD Primary Care Provider [phone] Allergies No known active allergies Medications MedicationSigDispense QuantityRefillsLast FilledStart DateEnd DateStatus gabapentin (NEURONTIN) 100 MG capsule Indications:states takes it in the AM and afternoonTake 100 mg by mouth 2 times daily Indications: states takes it in the AM and afternoonActive gabapentin (NEURONTIN) 300 MG capsule Take 300 mg by mouth nightlyActive colchicine (COLCRYS) 0.6 MG tablet Take 1 tablet by mouth daily 30 tablet ctive methotrexate (RHEUMATREX) 2.5 MG chemo tablet Take 20 mg by mouth once a weekActive febuxostat (ULORIC) 40 MG TABS tablet Take 120 mg by mouth dailyActive folic acid (FOLVITE) 1 MG tablet Take 1 mg by mouth dailyActive Active Problems ProblemNoted DateDiagnosed GogkBjbfnxzzbwvaw78/28/9895Utkdkw08/28/2015 Drqqjjtocdku18/28/2015GoutDDD (degenerative disc disease), cervicalVasovagal syncope Resolved Problems ProblemNoted DateDiagnosed DateResolved GzdyTtyurta69 Family History Medical HistoryRelationNameCommentsCOPDFatherCOPDMotherRelationNameStatus CommentsFatherAliveMotherAlive Social History Tobacco UseTypesPacks/DayYears UsedDateSmoking Tobacco: NeverSmokeless Tobacco: CurrentChewAlcohol UseStandard Drinks/WeekCommentsYes0 (1 standard drink = 0.6 oz pure alcohol)rarely; last drink was 2 glassses of wine Cas DaySex and Gender InformationValueDate RecordedSex Assigned at BirthNot on fileLegal Sex Male02/24/2015 6:11 PM ESTGender IdentityNot on fileSexual OrientationNot on file Last Filed Vital Signs Vital SignReadingTime TakenCommentsBlood Xeaxxypq832/85007/12/2018 8:22 PM EDT Gdafe53808/14/2019 8:22 PM XMTEzpwemkljvr56.5 ??C (97.7 ??F)07/12/2018 8:22 PM EDTRespiratory Enjf238207/12/2018 8:22 PM EDTOxygen Zrrwdmahxi68%07/12/2018 8:22 PM EDTInhaled Oxygen Concentration--Flqnej62.7 kg (200 lb)07/12/2018 8:22 PM EDT Gzgmnx713.5 cm (6' 3 )07/12/2018 8:22 PM EDTBody Mass Nnhds3596/14/2019 8:22 PM EDT Plan of Treatment Health MaintenanceDue DateLast DoneCommentsCOVID-19 Vaccine (#1)1995 Depression Gsmdrd9602/25/2002Varicella vaccine (1 of 2 - 13+ 2-dose series) 2003HIV qayhjv5402/25/2005Hepatitis C jqurnz1102/26/2008DTaP/Tdap/Td vaccine (1 - Tdap)2009Hepatitis B vaccine (1 of 3 - 19+ 3-dose series)2009 Flu vaccine (#1)09/29/2024HPV vaccine (No Doses Required)CompletedHepatitis A vaccineAged OutNo longer eligible based on patient's age to complete this topic Hib vaccineAged OutNo longer eligible based on patient's age to complete this topicMeningococcal (ACWY) vaccineAged OutNo longer eligible based on patient's age to complete this topicMeningococcal B vaccineAged OutNo longer eligible based on patient's age to complete this topicPneumococcal 0-49 years VaccineAged OutNo longer eligible based on patient's age to complete this topicPolio vaccine Aged OutNo longer eligible based on patient's age to complete this topic Insurance * Guarantor: Mandeep Wray TypeRelation to PatientDate of BirthPhone Billing AddressWorkers RoaaEjjj1990 (Home) [address] [phone] Advance Directives * Full Code (Latest Code Status on File) Date ActivatedDate InactivatedComments04/26/2015 11:58 PM2 7:53 PM * Full Code Date ActivatedDate QxoolktxpfiHphvfkmx80/27/2015 8:57 PM02/28/2015 4:48 PM Care Teams Team MemberRelationshipSpecialtyStart DateEnd Date Malcolm Cid MD PCP - Aililnn59/27/15
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
--- OUTSIDE RECORDS SUMMARY | 2024-12-19 13:27 | XMS_ITS | Encounter Summary ---
Author Organization [facility] Address [address] [place] [address] Care Team Providers Care Employee Development Manager Name Role Phone Malcolm Cid MD Primary Care Provider [phone] Malcolm Cid MD Unavailable Merry Paz LPN Unavailable Reason for Visit * ReasonOnset DateCommentsMed Wvnwfb7112/05/2024 Encounter Details DateTypeDepartmentCare Team (Latest Contact Info)Rxjyyvdlpkq61/07/2025Refill [facility] [address] [place] [id number] Marina Proctor, PA [address] [place] [address] Rheumatoid arthritis involving multiple sites with positive rheumatoid factor (HCC) Social History Tobacco UseTypesPacks/DayYears UsedDateSmoking Tobacco: Every DayCigarettes1.5 16.8Started: 02/26/2008Smokeless Tobacco: CurrentChewAlcohol UseStandard Drinks/WeekCommentsYes6 (1 standard drink = 0.6 oz pure alcohol)2 or 3 drinks in one sitting. Maybe two or three times per [id number] Health LiteracyAnswerDate RecordedHow often do you need [...] times a week10/10/2023How often do you attend mormonism or synagogue services?More than 4 times per year10/10/2023o you belong to any clubs or organizations such as mormonism groups, unions, fraternal or athletic groups, or school groups?Yes10/10/2023How often do you attend meetings of the clubs or organizations you belong to?More than 4 times per year10/10/2023 Are you , , , , never , or living with a partner?Rtzifdzej77/11/2024UDIT-CAnswerDate RecordedQ1: How often do you have a [...] heating?Not very hard10/10/2023HQ-2AnswerDate RecordedPatient Health Questionnaire-2 Score0 09/13/2024[facility] - Occupational Stress QuestionnaireAnswerDate [...] steady place to sleep [facility] ([facility])?No09/14/2022Housing Stability Vital SignAnswerDate RecordedIn the last 12 months, was there a time when you were not able to pay the mortgage or rent on time?Yes10/10/2023In the past 12 months, how many times have you moved where you were living?t any time in the past 12 months, were you homeless or living in a penitentiary (including now)?No 10/10/2023Sex and Gender InformationValueDate RecordedSex Assigned at BirthMale 09/08/2022 2:56 PM EDTLegal CddJkpp5805/13/2022 6:55 PM EDTGender IdentityMale 09/08/2022 2:56 PM EDTSexual QmaoubjkjbtYjktrzej56/11/2023 2:56 PM EDTdocumented as of this encounter Miscellaneous Notes * Telephone Encounter - ISIS Vera - 12/05/2024 9:22 AM EDT OARRS reviewed, Rx sent into patient's pharmacy. * Telephone Encounter - KAT CHAUDHARI - 12/05/2024 8:27 AM EDT OV 11/07/24 documented in this encounter Plan of Treatment Not on file documented as of this encounter Visit Diagnoses Diagnosis Rheumatoid arthritis involving multiple sites with positive rheumatoid factor (HCC) documented in this encounter Care Teams Team MemberRelationshipSpecialtyStart DateEnd Date Malcolm Cid MD [address] [facility] [address] [place] [address] [facility] - [facility] Malcolm Cid MD [address] [facility] [address] [place] [address] [facility]05/30/22 Merry Paz LPN [address] [facility] [address] [place] [address] 05/19/24documented as of this encounter
--- OUTSIDE RECORDS SUMMARY | 2024-12-19 13:29 | XMS_ITS | CCD ---
Author Organization [facility] Care Team Providers Care Sound Editor Name Role Phone LYEDI ACEVES Primary Care Unavailable Leydi Aceves Primary Care Provider MD Leydi Aceves Primary Care Provider [phone] MD Juvenal Smith Emergency Provider MD Adam Young Admit Provider [phone] MD Adam Young Attending Provider [phone] Leydi Aceves Primary Care Provider Leydi Aceves Primary Care Provider KETAN, DR HOLLEY Primary Care Unavailable LIBERTAD Lay, ZHAO Admitting Unavailable ZHAO DAWSON Consulting Unavailable ZHAO DAWSON Attending Unavailable LIBERTAD Lay, ZHAO Admitting Unavailable ZHAO DAWSON Attending Unavailable SOCO Lay MR COLE Consulting Unavailable DR LEYDI ACEVES Primary Care Unavailable MATIAS MCINTYRE Attending Unavailable ISIS DUFF Consulting UnavailMATIAS Ken Admitting Unavailable KETAN, DR HOLLEY Primary Care Unavailable LIBERTAD Lay, ZHAO Admitting Unavailable ZHAO DAWSON Attending Unavailable KELLY ACOSTA Consulting Unavailable DR LEYDI ACEVES Primary Care Unavailable LIBERTAD Lay, ZHAO Admitting Unavailable RUFINA MARIN Consulting Unavailable ZHAO DAWSON Attending Unavailable KETAN, DR HOLLEY Primary Care Unavailable ZHAO DAWSON Consulting Unavailable NEL KING Consulting Unavailable KETAN, DR HOLLEY Primary Care Unavailable DR TORRES SMITH Consulting Unavailable RD, DR TORRES Guillory Attending Unavailable DR TORRES SMITH Admitting Unavailable ZHAO DAWSON Consulting Unavailable ISIS DUFF Consulting UnavailMIKE Frank Attending Unavailable MIKE MERCADO Admitting Unavailable KETAN, DR HOLLEY Primary Care Unavailable KETAN, DR HOLLEY [facility] Unavailable HAY ., DR DUGGAN Consulting Unavailable [...] ., DR DUGGAN Admitting Unavailable Ketan MD [facility] Primary Care Provider KAYCE COFFMAN Referring Unavailable LEYDI ACEVES [facility] Care Unavailable Ladi Huber Attending Unavailable [place] MD [facility] Primary Care Provider Leydi Aceves MD Unavailable Ketan CABRAL [facility] Provider [phone] MD Leydi Aceves Primary Care Provider [phone] MD Nicola Leyva Attending Provider [phone] Nicola Leyva Attending Unavailab le Leydi Aceves [facility] Unavailable Adam Young Admitting Unavailable Nicola Leyva Attending Unavailab le Leydi Aceves [facility] Unavailable Nicola Leyva Admitting Unavailab le Wednesday [employer], Alma Unavailable DELMY BOYLE Referring Unavailable K[facility]AN[facility] Care Unavailable Ivon BENITES, Jayne Unavailable [phone] Paz [employer], Merry Unavailable Unavailable Paz [employer], Merry Unavailable MARINA REES Attending Unavailable MARINA REES Attending Unavailable HEMMARINA BOYKIN Attending Unavailable HEMMARINA BOYKIN Attending Unavailable MARINA REES Attending Unavailable MARINA REES Attending Unavailable KETANLEYDI [place] [facility] Primary Care Unavailable DELMY BOYLE Referring Unavailable KETAN, [facility] Care Unavailable KETAN, [facility] Primary Care Unavailable DELMY BOYLE Referring Unavailable KETAN, RUGEN MABALAY Primary Care Unavailable KETAN, RUGEN MABALAY Primary Care Unavailable DELMY BOYLE Referring Unavailable KETAN, RUGEN MABALAY Primary Care Unavailable DELMY BOYLE Attending Unavailable KETAN, RUGEN MABALAY Primary Care Unavailable DELMY BOYLE Referring Unavailable KETAN, RUGEN MABALAY Primary Care Unavailable DELMY BOYLE Attending Unavailable KETAN, RUGEN MABALAY Primary Care Unavailable DELMY BOYLE Referring Unavailable KETAN, RUGEN MABALAY Primary Care Unavailable MANDELMY HUNTER Referring Unavailable KETAN, RUGEN MABALAY Primary Care Unavailable Medications Current Medications MedicationDrug Class(es)DatesSig (Normalized)Sig (Original)acetaminophen 325 mg / HYDROcodone bitartrate 5 mg oral tablet (20 sources)Opioid AgonistStart: 08-07-2024 End: 33-54-5420pxwr 1 tablet by mouth onceHYDROcodone-acetaminophen ([place]) 5- 325 MG tablet Indications: Rheumatoid arthritis involving multiple sites with positive rheumatoid factor (HCC) Take 1 tablet by mouth every 12 (twelve) hours if needed for severe pain 60 tablet 12/05/2024 01/04/2025 ActiveStart: 07-07-2024 End: 04-59-0756ldqq 1 tablet by mouth once daily as needed for painHYDROcodone- acetaminophen ([place]) 5-325 MG tablet Indications: 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) Take 1 tablet by mouth Daily as needed for severe pain for up to 5 days 5 tablet 07/07/2024 07/12/2024 ActiveStart: 07-03-2024 End: 28-87-0492hnzi 1 tablet by mouth onceHYDROcodone-acetaminophen ([place]) 5- 325 MG tablet Indications: 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) Take 1 tablet by mouth every 12 (twelve) hours if needed for severe pain for up to 5 days 10 tablet 07/03/2024 07/07/2024 Discontinued (Reorder)Start: 06-27-2024 End: 27-82-0691abai 1 tablet by mouth every eight hours for painHYDROcodone- acetaminophen (Batchelor) 5-325 MG tablet Indications: 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) Take 1 tablet by mouth every 8 (eight) hours if needed for severe pain for up to 5 days 15 tablet 06/27/2024 07/03/2024 Discontinued (Reorder)Start: 05-18-2024 End: 95-61-9571arrd 1 tablet by mouth every six hours for painHYDROcodone- acetaminophen (B[place]lor) 5-325 MG tablet Indications: 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) Take 1 tablet by mouth every 6 (six) hours if needed for severe pain for up to 5 days 20 tablet 06/19/2024 06/24/2024 ActiveStart: 05-11-2024 End: 54-91-5491imed 1 tablet by mouth every six hours for painHYDROcodone- acetaminophen ([place]lor) 5-325 MG tablet Indications: Abscess of right index finger Take 1tablet by mouth every 6 (six) hours if needed for severe pain for up to 5 days 20 tablet ActiveStart: 04-20-2024 End: 53-37-6525oaot 1 tablet by mouth every six hours for painHYDROcodone- acetaminophen ([place]lor) 5-325 MG tablet Indications: Abscess of right index finger Take 1tablet by mouth every 6 (six) hours if needed for severe pain for up to 5 days 20 tablet Activeacetaminophen 325 mg / oxyCODONE hydrochloride 5 mg oral tablet (16 sources)Opioid AgonistStart: 07-31-2024 End: 71-87-3924nuoc 1 tablet by mouth every four hours as needed for pain and painoxyCODONE-acetaminophen (Percocet) 5-325 MG tablet Take 1 tablet by mouth every 4 (four) hours if needed for severe pain or moderate pain 07/31/2024 08/07/2024 Discontinued (Therapy completed)Start: 04-15-2024 End: 05-82-4539wojt 1 tablet by mouth every four hours as needed for pain and painoxyCODONE-acetaminophen (Percocet) 5-325 MG tablet Take 1 tablet by mouth every 4 (four) hours if needed for severe pain or moderate pain 04/15/2024 04/20/2024 Discontinued (Therapy completed)Start: 01-11-2024 End: 27-64-9556lvth 1 tablet by mouth every six hours for painoxyCODONE- acetaminophen (Percocet) 5-325 MG tablet Indications: 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) Take 1 tablet by mouth every 6 (six) hours if needed for severe pain for up to 5 days 20 tablet 01/21/2024 01/26/2024 ActiveStart: 05-09-2023 End: 14-67-4374abff 1 tablet by mouth every eight hoursOxycodone-Acetaminophen Discontinued 1 TAB PO Every 8 hours May 09, 2023 1:00am August 22, 2023 12:43pmStart: 03-16-2023 End: 91-41-5372pzvn 1 tablet by mouth every eight hours for painoxyCODONE- acetaminophen (Percocet) 5-325 MG tablet Indications: 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) Take 1 tablet by mouth every 8 (eight) hours ifneeded for severe pain 90 tablet 0 03/16/2023 04/15/2023 ActiveStart: 12-07-2021 End: 78-73-4408tzqc 1 tablet by mouth twice dailyOxycodone-Acetaminophen Discontinued 1 TAB PO Twice daily December 07, 2021 12:00am May 09, 2023 [id number] 200 actuat albuterol 0.09 mg/actuat metered dose inhaler (6 sources)beta2-Adrenergic AgonistStart: 21-72-6484wcsalawte HFA 90 mcg/act inhaler 10/10/2023 Activeallopurinol 100 mg oral tablet (20 sources)Xanthine Oxidase InhibitorStart: 78-04-9721Dwsntacdlxw Active 300 MG PO Daily May 09, 2023 1:00am take with Allopurinol 100mg tablet to =400mg Start: 03-08-2023 End: 60-53-7267bhre 2 tablets by mouth once dailyallopurinol (Zyloprim) 100 MG tablet Take 200 mg by mouth Daily Take with Allopurinol 3oomg (2 tabs)=700mg total 03/08/2023 11/07/2024 Discontinued (Other)Start: 66-13-5384pgcp 1 tablet by mouth once dailyallopurinol (Zyloprim) 100 MG tablet Take 100 mg by mouth Daily Take with Allopurinol 3oomg (2 tabs)=700mg total 03/08/2023 ActiveStart: 03-08-2023 End: 42-24-3357Rvdbkskrstk Active 100 MG PO Daily May 09, 2023 1:00am take with Allopurinol 300mg tablet to =400mgStart: 01-01-2022 End: 25-10-3306ijoj 2 tablets by mouth in the morningallopurinol (Zyloprim) 300 MG tablet Take 600 mg by mouth in the morning. 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 Using 300 mg and 100 mg tabs, take 700 mg daily (in divided doses) 180 tablet 1 03/08/2023 06/24/2023 Discontinued Start: 05-30-2021 End: 71-93-4582kzijzyeogvr (ZYLOPRIM) 100 mg tablet 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 Take one 300 mg tablet + two and one half 100 mg tab once a day (total daily dose =550 mg daily) 225 tablet 1 08/05/2021 ActiveStart: 05-30-2021 End: 97-53-1894hvfuynyjwce (ZYLOPRIM) 300 mg tablet 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 Take one 300 mg tablet + two and one half 100 mg tab once a day (total daily dose =550 mg daily) 90 tablet 1 08/05/2021 ActiveComment on above:Take one 300 mg tablet + two and one half 100 mg tab once a day (total daily dose =550 mg daily)Take one 300 mg tablet + two 100 mg tab once a day (total daily dose =500 mg daily)TAKE 1 TABLET BY MOUTH TWICE A DAYUsing 300 mg and 100 mg tabs, take 350 mg qam and 300 mg qpm (total daily dose of 650 mg)TAKE 1/2 TABLET BY MOUTH IN THE MORNING WITH 300MG ALPRAZolam 0.5 mg oral tablet (20 sources)BenzodiazepineStart: 10-11-2023 End: 52-54-1938jhek 1 tablet by mouth in the morningALPRAZolam (Xanax) 0.5 MG tablet Indications: Anxiety Take 1 tablet (0.5 mg) by mouth in the morning and 1 tablet (0.5 mg) before bedtime. 60 tablet 12/07/2023 01/21/2024 Discontinued (Therapy completed)Start: 94-82-4883yovt 0.5 mg by mouth three times daily Alprazolam Active 0.5 MG PO Three times daily May 09, 2023 1:00amStart: 28-08-7224wlro 1 tablet by mouth three times daily as needed for anxiety ALPRAZolam (Xanax) 0.5 MG tablet Indications: Anxiety Take 1 tablet (0.5 mg) by mouth 3 (three) times a day as needed for anxiety 90 tablet 0 03/16/2023 Active Start: 12-07-2021 End: 29-04-2479sbtp 0.5 mg by mouth twice dailyAlprazolam Discontinued 0.5 MG PO Twice daily December 07, 2021 12:00am May 09, 2023 1:47amStart: 08-28-2019 End: 78-14-7506rihc 1 tablet by mouth twice dailyALPRAZolam (XANAX) 0.25 mg tablet Take 0.25 mg by mouth twice daily. 08/28/2019 01/04/2024 Discontinued Comment on above:Take 0.25 mg by mouth twice daily.amLODIPine 10 mg oral tablet (20 sources)Dihydropyridine Calcium Channel BlockerStart: 29-61-5998uxgn 1 tablet by mouth once dailyamLODIPine (Norvasc) 10 MG tablet Indications: Essential hypertension TAKE 1 TABLET BY MOUTH EVERY DAY FOR 100 DAYS 100 tablet 3 08/01/2024 ActiveStart: 12-07-2021 End: 99-67-4527yena 10 mg by mouth once dailyAmlodipine Active 10 MG PO Daily May 09, 2023 1:00amStart: 88-30-4379lahv 1 tablet by mouth twice daily amLODIPine (NORVASC) 5 mg tablet Take 1 tablet by mouth twice daily. 180 tablet 3 12/25/2020 ActiveComment on above:Take 1 tablet by mouth twice daily. amoxicillin 875 mg / clavulanate 125 mg oral tablet (5 sources)Penicillin-class AntibacterialStart: 04-20-2024 End: 85-69-2748aikk 1 tablet by mouth in the morningamoxicillin-clavulanate (Augmentin) 875-125 MG tablet Indications: Abscess of right index finger Take 1 tablet (875 mg) by mouth in the morning and 1 tablet (875 mg) in the evening. Take with meals. Do all this for 10 days. 20 tablet 04/20/2024 04/30/2024 Active Start: 12-24-2023 End: 79-13-2604kuso 1 tablet by mouth in the morningamoxicillin-clavulanate (Augmentin) 875-125 MG tablet Indications: Chronic obstructive pulmonary dis ease, unspecified COPD type (CMS/HCC) Take 1 tablet (875 mg) by mouth in the morning and 1 tablet (875 mg) in the evening. Take with meals. Do all this for 7 days. 14 tablet 12/24/2023 12/31/2023 ActiveStart: 38-97-2883yvav 1 tablet by mouth twice dailyAmoxicillin-Pot Clavulanate Active 1 TAB PO Twice daily 18 12August 22, 2023 12:00ambenzonatate 200 mg oral capsule (1 source)Non-narcotic AntitussiveStart: 12-24-2023 End: 45-55-0632qhya 1 capsule by mouth three times daily as needed for cough benzonatate (Tessalon) 200 MG capsule Indications: Chronic obstructive pulmonary disease, unspecified COPD type (CMS/HCC) Take 1 capsule (200 mg) by mouth 3 (three) times a day as needed for cough for up to 7 days Do not crush or chew. 21 capsule 12/24/2023 12/31/2023 Activebrexpiprazole 2 mg oral tablet (7 sources)Atypical AntipsychoticStart: 23-87-0632ejli 1 tablet by mouth once dailyBrexpiprazole (Rexulti) 2 MG tablet Indications: Anxiety Take 1 tablet by mouth Daily 30 tablet 3 07/09/2023 Activecarvedilol 6.25 mg oral tablet (20 sources)alpha-Adrenergic [place], beta-Adrenergic BlockerStart: 12-07-2021 End: 16-51-9980kzpd 1 tablet by mouth twice daily at mealtimecarvedilol (Coreg) 6.25 MG tablet Indications: Essential (primary) hypertension TAKE 1 TABLET BY MOUTH TWICE A DAY WITH FOOD 180 tablet 3 09/21/2022 Activecelecoxib 100 mg oral capsule (4 sources)Nonsteroidal Anti-inflammatory DrugStart: 12-07-2021 End: 54-90-1982uzae 1 capsule by mouth in the morningcelecoxib (CeleBREX) 100 MG capsule Take 100 mg by mouth in the morning and 100 mg before bedtime. 0 03/17/2022 ActivecloNIDine hydrochloride 0.1 mg oral tablet (20 sources)Central alpha-2 Adrenergic AgonistStart: 29-17-2360eodr 1 tablet by mouth twice dailycloNIDine (Catapres) 0.1 MG tablet Indications: Essential hypertension TAKE 1 TABLET BY MOUTH TWICEA DAY 180 tablet 3 08/07/2024 Active Start: 03-11-2021 End: 51-48-5868isti 1 tablet by mouth twice dailycloNIDine HCl (CATAPRES) 0.1 mg tablet Take 0.1 mg by mouth two times a day. 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 90 tablet 2 10/03/2024 ActiveStart: 05-30-2021 End: 80-49-5920brhn 1 tablet by mouth every other daycolchicine 0.6 MG tablet Indications: Rheumatoid arthritis involving multiple sites with positive rh eumatoid factor (HCC) TAKE 1 TABLET BY MOUTH EVERY OTHER DAY 15 tablet 11 09/16/2024 ActiveComment on above:Take 1 tablet by mouth every other day.TAKE 1 TABLET BY MOUTH EVERY OTHER DAYdiclofenac sodium 0.01 mg/mg topical gel (11 sources)Nonsteroidal Anti-inflammatory DrugStart: 33-95-6303xutbnpoqwh sodium (Voltaren Arthritis Pain) 1 % gel Indications: 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) Apply 2 g topically in the morning and 2 g in the evening and 2 g before bedtime. 100 g 2 01/21/2024 Activedoxycycline hyclate 100 mg oral tablet (2 sources)Tetracycline-class DrugStart: 99-41-2192vdyi 1 tablet by mouth in the morningdoxycycline (Vibra-Tabs) 100 MG tablet Take 100 mg by mouth in the morning and 100 mg before bedtime. 0 02/16/2023 Activefamotidine 20 mg oral tablet (2 sources)Histamine-2 Receptor AntagonistStart: 01-15-2024 End: 26-49-0450iabb 1 tablet by mouth in the morningfamotidine (Pepcid) 20 MG tablet Take 20 mg by mouth in the morning and 20 mg before bedtime. 01/15/2024 01/21/2024 Discontinued (Other)febuxostat 40 mg oral tablet (13 sources)Xanthine Oxidase InhibitorStart: 11-73-2502rnnx 1 tablet by mouth once dailyfebuxostat (Uloric) 40 MG tablet Take 40 mg by mouth Daily 11/06/2024 Activefolic acid 1 mg oral tablet (12 sources)Start: 41-75-3703qelm 1 tablet by mouth once dailyfolic acid (Folvite) 1 MG tablet Take 1,000 mcg by mouth Daily 10/09/2024 Activegabapentin 300 mg oral capsule (20 sources)Anti-epileptic AgentStart: 71-09-0457iyzl 1 capsule by mouth at bedtimegabapentin (Neurontin) 300 MG capsule Indications: Other chronic pain TAKE 1 CAPSULE (300 MG) BY MOUTH IN THE MORNING AND AT BEDTIME 60 capsule 6 11/20/2024 ActiveStart: 66-50-5967paiu 1 capsule by mouth in the morning gabapentin (Neurontin) 300 MG capsule Indications: Other chronic pain Take 1 capsule (300 mg) by mouth in the morning and 1 capsule (300 mg) before bedtime. 100 capsule 3 06/05/2024 ActiveStart: 17-55-7011liva 1 capsule by mouth once daily at bedtimegabapentin (Neurontin) 300 MG capsule Indications: Other chronic pain TAKE 1 CAPSULE BY MOUTH EVERYMORNING, EVERY EVENING, AND AT BEDTIME 90 capsule 4 01/17/2024 ActiveStart: 98-40-0913acev 1 capsule by mouth at bedtime gabapentin (Neurontin) 300 MG capsule Indications: Other chronic pain TAKE 1 CAPSULE BY MOUTH IN THE MORNING, EVENING AND BEFORE BEDTIME 90 capsule 4 08/26/2023 ActiveStart: 08-22-2023 End: 95-65-3685qltf 300 mg by mouth three times dailyGabapentin Discontinued 300 MG PO Three times daily August 22, 2023 12:00am August 22, 2023 12:42pmStart: 94-48-2944ehud 1 capsule by mouth at bedtimegabapentin (Neurontin) 300 MG capsule Indications: Other chronic pain Take 1 capsule (300 mg) by mouth at bedtime 100 capsule 3 04/05/2023 ActiveStart: 53-40-1198ghiw 1 capsule by mouth at bedtimegabapentin (Neurontin) 300 MG capsule Indications: Other chronic pain TAKE 1 CAPSULE BY MOUTH IN THE MORNING,IN THE EVENING,AND BEFORE BEDTIME 100 capsule 3 03/08/2023 Activeindomethacin 50 mg oral capsule (3 sources)Nonsteroidal Anti-inflammatory DrugStart: 01-15-2024 End: 99-27-6685wfvgxsnkbesh (Indocin) 50 MG capsule 01/15/2024 01/22/2024 Active lidocaine 0.05 mg/mg medicated patch (11 sources)Antiarrhythmic, Amide Local AnestheticStart: 01-06-2024 End: 30-67-2159pfewx 1 dose transdermal route in the morninglidocaine (Lidoderm) 5 % patch Place 1 patch on the skin in the morning. 01/06/2024 04/20/2024 Disco ntinued (Other)Start: 70-48-0033knvta 1 dose transdermal route once daily, then apply 1 dose transdermal route every twelve hourslidocaine (ZTLIDO) 1.8 % patch Indications: Stage 3 chronic kidney disease, unspecified whether stage 3a or 3b CKD (HCC) , Other secondary osteoarthritis of multiple sites Apply 1 Patch to affected area once daily. Remove patch after 12 hours. 30 Patch 01/04/2024 Activemethotrexate 2.5 mg oral tablet (12 sources)Folate Analog Metabolic InhibitorStart: 94-91-1070ehza 1 tablet by mouth every weekmethotrexate 2.5 MG tablet Take 2.5 mg by mouth 1 (one) time per week. 10/09/2024 ActiveStart: 10-09-2024 End: 36-32-5169vmzvcbcpqmfx 2.5 mg tablet Indications: Chronic tophaceous gout Take 6 tablets by mouth one time a week. Hold if you have infection or fevers 100.4 F or higher. May resume once infection resolved. LABS EVERY 3 MONTHS 72 tablet 10/09/2024 01/07/2025 Activeondansetron 4 mg disintegrating oral tablet (2 sources)Serotonin-3 Receptor AntagonistStart: 82-95-7076vlin 1 tablet by mouth every eight hours as neededondansetron ODT (Zofran-ODT) 4 MG disintegrating tablet Take 4 mg by mouth every 8 (eight) hours ifneeded. 0 01/11/2023 ActivepredniSONE 5 mg oral tablet (20 sources)Start: 63-92-4011zgzc 1 tablet by mouth once daily as needed predniSONE (Deltasone) 5 MG tablet Take 5 mg by mouth Daily PRN 11/03/2024 ActiveStart: 69-15-2167tvayhxRFZM (DELTASONE) 5 mg tablet Take 6 tab in AM on day 1 then reduce dose by 1 tablet every dayuntil off 21 tablet 11/03/2024 ActiveStart: 09-18-2024 End: 60-20-7450hjop 4 tablets by mouth once daily, then take 3 tablets by mouth once daily, then take 2 tablets bymouth once daily, then take 1 tablet by mouth once dailypredniSONE (Deltasone) 10 MG tablet Indications: Rheumatoid arthritis involving multiple sites withpositive rheumatoid factor (HCC) Take 4 tablets (40 mg) by mouth Daily for 3 days, THEN 3 tablets (30 mg) Daily for 3 days, THEN 2 tablets (20 mg) Daily for 3 days, THEN 1 tablet (10 mg) Daily for 3 days. 30 tablet 09/18/2024 10/02/2024 Discontinued (Therapy completed)Start: 07-30-2024 End: 37-00-1428dvqauyJFET (Deltasone) 10 MG tablet Take by mouth Daily 50mg daily x3 days, 40mg daily x3 days, 30mg daily x3 days, 20mg daily x3 days, 10mg daily x3 days, 5mg daily x4 days. 07/30/2024 08/21/2024 ActiveStart: 05-16-2024 End: 78-65-5455nqwj 4 tablets by mouth once daily, then take 3 tablets by mouth once daily, then take 2 tablets bymouth once daily, then take 1 tablet by mouth once dailypredniSONE (Deltasone) 10 MG tablet Indications: Rheumatoid arthritis involving multiple sites withpositive rheumatoid factor (CMS/HCC) Take 4 tablets (40 mg) by mouth Daily for 4 days, THEN 3 tablets (30 mg) Daily for 4 days, THEN 2 tablets (20 mg) Daily for 4 days, THEN 1 tablet (10 mg) Daily for 4 days. 40 tablet 05/16/2024 05/31/2024 ActiveStart: 04-16-2024 End: 51-27-3825ecvi 4 tablets by mouth once daily, then take 3 tablets by mouth once daily, then take 2 tablets bymouth once daily, then take 1 tablet by mouth once dailypredniSONE (Deltasone) 10 MG tablet Indications: Rheumatoid arthritis involving multiple sites withpositive rheumatoid factor (CMS/HCC) Take 4 tablets (40 mg) by mouth Daily for 4 days, THEN 3 tablets (30 mg) Daily for 4 days, THEN 2 tablets (20 mg) Daily for 4 days, THEN 1 tablet (10 mg) Daily for 4 days. 40 tablet 04/16/2024 05/02/2024 ActiveStart: 01-21-2024 End: 37-89-1451lwij 4 tablets by mouth once daily, then take 3 tablets by mouth once daily, then take 2 tablets bymouth once daily, then take 1 tablet by mouth once dailypredniSONE (Deltasone) 10 MG tablet Indications: Rheumatoid arthritis involving multiple sites withpositive rheumatoid factor (CMS/HCC) Take 4 tablets (40 mg) by mouth Daily for 3 days, THEN 3 tablets (30 mg) Daily for 3 days, THEN 2 tablets (20 mg) Daily for 3 days, THEN 1 tablet (10 mg) Daily for 3 days. 30 tablet 01/21/2024 02/01/2024 ActiveStart: 01-15-2024 End: 31-53-9666qjjatwSZCH (Deltasone) 50 MG tablet 01/15/2024 01/21/2024 Discontinued (Therapy completed)Start: 11-30-2023 End: 85-55-3257mcni 4 tablets by mouth once daily, then take 3 tablets by mouth once daily, then take 2 tablets bymouth once daily, then take 1 tablet by mouth once dailypredniSONE (Deltasone) 10 MG tablet Indications: Rheumatoid arthritis involving multiple sites withpositive rheumatoid factor (CMS/HCC) Take 4 tablets (40 mg) by mouth Daily for 4 days, THEN 3 tablets (30 mg) Daily for 4 days, THEN 2 tablets (20 mg) Daily for 4 days, THEN 1 tablet (10 mg) Daily for 4 days. 40 tablet 11/30/2023 12/16/2023 ActiveStart: 01-04-0078mtnstxKFYE (Deltasone) 20 MG tablet 10/08/2023 ActiveStart: 87-60-9567yrso 5 tablets by mouth once daily predniSONE (Deltasone) 10 MG tablet TAKE 5 TABS BY MOUTH DAILY X5DAYS,4 TABS X5DAYS,3 TABS X5DAYS,2TABS X5DAYS,1 TAB X5DAYS DIRECTED 0 02/24/2023 Active Start: 11-13-2022 End: 11-28-1284vqfsokWRGF (DELTASONE) 5 mg tablet Take 6 tab in AM on day 1 then reduce dose by 1 tablet every dayuntil off 21 tablet 07/07/2023 01/04/2024 DiscontinuedComment on above:Take 6 tab in AM on day 1 then reduce dose by 1 tablet every day until offQUEtiapine 100 mg oral tablet (20 sources)Atypical AntipsychoticStart: 05-12-2023 End: 98-99-8346hewb 1 tablet by mouth at bedtimeQUEtiapine (SEROquel) 100 MG tablet Take 100 mg by mouth at bedtime 06/29/2023 ActiveStart: 05-09-2023 End: 77-99-7978rlja 75 mg by mouth at bedtimeQuetiapine Discontinued 75 MG PO Bedtime May 09, 2023 1:00am May 12, 2023 7:53amStart: 12-07-2021 End: 27-60-7417oswa 1 tablet by mouth at bedtimeQUEtiapine (SEROquel) 25 MG tablet Take 25 mg by mouth at bedtime. 0 02/16/2022 Activetake 1 tablet by mouth at bedtimeQUEtiapine (SEROquel) 50 MG tablet Take 50 mg by mouth at bedtime. 0 ActivetraMADol hydrochloride 50 mg oral tablet (20 sources)Opioid AgonistStart: 04-04-2024 End: 59-99-1493fvsc 1 tablet by mouth oncetraMADol (Ultram) 50 MG tablet Indications: 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) Take 1 tablet (50 mg) by mouth every 12 (twelve) hours if needed for moderate pain 60 tablet 07/26/2024 08/25/2024 ActiveStart: 10-11-2023 End: 95-96-8988mfcb 1 tablet by mouth oncetraMADol (Ultram) 50 MG tablet Indications: 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) Take 1 tablet (50 mg) by mouth every 12 (twelve) hours if needed for moderate pain 60 tablet 01/07/2024 02/06/2024 ActiveStart: 06-24-2023 End: 00-03-3634zwgq 1 tablet by mouth twice daily as needed for paintraMADol (ULTRAM) 50 mg tablet Indications: Chronic tophaceous gout Take 1 tablet by mouth two times a day as needed for pain for up to 7 days. FOR SHORT TERM USE ONLY. 10 tablet 06/24/2023 01/04/2024 DiscontinuedStart: 05-09-2023 End: 00-99-2582pxct 50 mg by mouth every six hoursTramadol Discontinued 50 MG PO Every 6 hours May 09, 2023 1:00am August 22, 2023 12:43pmStart: 03-29-2023 End: 27-25-4048quzv 1 tablet by mouth every six hours for paintraMADol (Ultram) 50 MG tablet Indications: 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) Take 1 tablet (50 mg) by mouth every 6 (six) hours if needed for severe pain 120 tablet 0 03/29/2023 04/28/2023 Active Start: 12-07-2021 End: 88-69-6477ssji 100 mg by mouth four times dailyTramadol Discontinued 100 MG PO Four times daily December 07, 2021 12:00am May 09, 2023 1:48amStart: 06-18-2017 End: 79-67-2268quxf 1 tablet by mouth every eight hours as needed for pain traMADol (ULTRAM) 50 mg tablet Indications: Rheumatoid arthritis of multiple sites with negative rheumatoid factor (HCC) , Chronic tophaceous gout Take 1 tablet by mouth every 8 hours as needed for Pain for up to 4 days. for pain. 12 tablet 0 06/18/2017 06/24/2023 DiscontinuedComment on above:Take 1 tablet by mouth every 8 hours as needed for Pain for up to 4 days. for pain.traZODone hydrochloride 50 mg oral tablet (9 sources)Serotonin Reuptake InhibitorStart: 11-12-2023 End: 58-23-0720ciyv 1-2 tablets by mouth once daily at bedtime as needed for sleeptraZODone (Desyrel) 50 MG tablet TAKE 1 - 2 TABLETS BY MOUTH EVERYDAY AT BEDTIME NEEDED FOR SLEEP 11/12/2023 04/20/2024 Discontinued (Other)Start: 27-48-8370nowa 50 mg by mouth once daily at bedtimeTrazodone Active 50 MG PO Daily at bedtime August 22, 2023 12:00am Completed/Discontinued Medications MedicationDrug Class(es)DatesSig (Normalized)Sig (Original)acamprosate calcium 333 mg delayed release oral tablet (2 sources)Start: 12-10-2021 End: 22-55-3372vaoe 333 mg by mouth three times dailyAcamprosate Discontinued 333 MG PO Three times daily 45 15 December 10, 2021 12:00am May 09, 2023 1:48ambaclofen 10 mg oral tablet (2 sources)gamma-Aminobutyric Acid-ergic AgonistStart: 04-05-2023 End: 11-28-8231hpkx 10 mg by mouth three times dailyBaclofen Discontinued 10 MG PO Three times daily May 09, 2023 1:00am August 22, 2023 12:35pm12 hr buPROPion hydrochloride 100 mg extended release oral tablet (13 sources)AminoketoneStart: 10-08-2019 End: 29-91-9559arfi 1 tablet by mouth twice dailybuPROPion SR (WELLBUTRIN SR) 100 mg 12 hr tablet Take 100 mg by mouth twice daily. 10/08/2019 01/04/2024 DiscontinuedComment on above:Take 100 mg by mouth twice daily.busPIRone hydrochloride 5 mg oral tablet (1 source)Start: 05-12-2023 End: 46-36-3613brjh 5 mg by mouth twice dailyBuspirone Discontinued 5 MG PO Twice daily May 12, 2023 12:00am August 22, 2023 12:42pm cholecalciferol 0.05 mg oral tablet (7 sources)Vitamin DStart: 78-11-1931xvlg 1 tablet by mouth once daily cholecalciferol (VITAMIN D3) 50 mcg (2,000 unit) tablet Take 1 tablet by mouth once daily. 90 tablet 0 12/23/2020 ActiveComment on above:Take 1 tablet by mouth once daily.diphenhydrAMINE (1 source)Histamine-1 Receptor AntagonistStart: 11-14-2024 End: 21-35-184534 mg, INTRAVENOUS, ONCE, 1 dose, On Wed11/14/24 at 1130 escitalopram 20 mg oral tablet (5 sources)Serotonin Reuptake InhibitorStart: 05-09-2023 End: 25-70-9822sqjf 20 mg by mouth once dailyEscitalopram Oxalate Discontinued 20 MG PO Daily May 09, 2023 1:00am August 22, 2023 12:42pmStart: 06-10-2022 take 1 tablet by mouth in the morningescitalopram (Lexapro) 20 MG tablet Take 20 mg by mouth in the morning. 0 06/10/2022 ActiveStart: 12-10-2021 End: 77-24-2995jckj 5 mg by mouth once daily in the morningEscitalopram Oxalate Discontinued 5 MG PO Every morning December 10, 2021 12:00am May 09, 2023 1:48ammethylPREDNISolone 125 mg injection (8 sources)CorticosteroidStart: 11-14-2024 End: 99-83-1951477 mg, INTRAVENOUS, ONCE, 1 dose, On Wed11/14/24 at 1130Start: 91-70-1669zngwpaSPUUARZxihvp (Medrol Dospak) 4 MG tablets Indications: 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) Follow schedule on package instructions 21 tablet 07/20/2024 Active Start: 21-29-6324bqjsvtPWFCSFUxsybo (Medrol Dospak) 4 MG tablets TAKE 6 TABLETS ON DAY 1 DIRECTED ON PACKAGE AND DECREASE BY 1 TAB EACH DAY FOR A TOTAL OF 6 DAYS 06/23/2024 ActiveNaloxone (1 source)Opioid AntagonistStart: 08-22-2023 End: 18-51-1395Rcokcngt Discontinued INTRANASAL August 22, 2023 12:00am August 22, 2023 12:42pmpegloticase 8 mg in NaCl 0.9% 250 mL (KRYSTEXXA) (1 source)Start: 11-14-2024 End: mg, INTRAVENOUS, at 125 mL/hr, Administer over 2 Hours, ONCE, 1 dose, On Wed11/14/24 at 1230, Administer in a healthcare setting by healthcare providers prepared to manage anaphylaxis. Protect FromLight. EXP: 11/14/2024 1620 RTtiZANidine 4 mg oral tablet (2 sources)Central alpha-2 Adrenergic AgonistStart: 12-07-2021 End: 85-94-3834qktu 4 mg by mouth three times dailyTizanidine Discontinued 4 MG PO Three times daily December 07, 2021 12:00am May 09, 2023 1:48am Problems Active Problems Problem ClassificationProblemDateDocumented DateEpisodic/ChronicAlcohol-related disorders (1 source)Alcohol dependence with intoxication, unspecified; Translations: [ALCOHOL DEPEND W/INTOX UNS]Onset: 28-42-6211ZdzqqtfDlyqouf kidney disease (20 sources)Chronic kidney disease stage 3; Translations: [Stage 3 chronic kidney disease, unspecified whether stage 3a or 3b CKD (HCC)]Onset: 07-29-2022 ChronicE Codes: Natural/environment (1 source)Exposure to other specified factors, initial encounter; Translations: [EXPOSURE OTHER SPEC FACTORS INITIAL]Onset: 50-90-0186WhpymzmgAijoovzga hypertension (20 sources)Essential hypertension; Translations: [Essential (primary) hypertension]Onset: 101180-71-7102AzruxtmRgkpe of unknown origin (1 source)Fever, unspecified; Translations: [FEVER UNSPECIFIED]Onset: 06-23-2022 EpisodicGout and other crystal arthropathies (20 sources)Chronic primary gouty arthritis; Translations: [Idiopathic chronic gout, multiple sites, with tophus (tophi)]Onset: 47-27-4197CykxvmgWzfogvzz; including migraine (3 sources)Migraine; Translations: [Migraine without aura, not intractable, without status migrainosus]23-60-8474BfbqyupToupxsxu disorders (20 sources)Immunodeficiency disorder; Translations: [Immunodeficiency, unspecified]Onset: 875185-88-1379DoumaykUkab disorders (20 sources)Recurrent major depressive episodes, moderate ; Translations: [Major depressive disorder, recurrent, moderate]Onset: 12-15-2021 Resolved: 944520-17-6041IoagjbpPpebumvlmmq deficiencies (20 sources)Vitamin D deficiency; Translations: [Vitamin D deficiency, unspecified]Onset: 300094-74-1713ObfvyprPbjo wounds of extremities (2 sources)Open wound of left lower leg; Translations: [Unspecified open wound, left lower leg, subsequent encounter]84-04-3715IwyvzalxYabsjmmiabosbl (20 sources)Localized, primary osteoarthritis of the shoulder region; Translations: [Primary osteoarthritis, unspecified shoulder]Onset: 07-29-2022 59-95-2091BmantudGtmfe aftercare (2 sources)Patient encounter status; Translations: [Other mcc (current) drug therapy]EpisodicOther aftercare (3 sources)Other long filler cigar roller machine (current) drug therapy; Translations: [OTH MCFP CURRENT DRUG THERAPY]Onset: 66-82-3623VwzrgdxqZhveu aftercare (2 sources)Long-term current use of drug therapy; Translations: [Other long filler cigar roller machine (current) drug therapy]63-99-0814UohymntwTrdph aftercare (2 sources)Removal of sutures done; Translations: [Encounter for removal of sutures]68-22-0598JiuydphsKddyv connective tissue disease (4 sources)Other specified soft tissue disorders; Translations: [OTHER SPEC SOFT TISSUE DISORDERS]Onset: 71-91-6172GazrfgxgOwfon connective tissue disease (3 sources)Pain in right arm; Translations: [PAIN IN RIGHT ARM]Onset: 05-31-2022 EpisodicOther connective tissue disease (6 sources)Enthesopathy of knee; Translations: [Other specified enthesopathies of unspecified lower limb, excluding foot]Onset: 441870-36-0404Nbikxhgg Other nervous system disorders (20 sources)Chronic pain; Translations: [Other chronic pain]Onset: 04-26-2017 29-15-6618WnfqumbQmbid non-traumatic joint disorders (1 source)Polyarthritis, unspecified; Translations: [POLYARTHRITIS UNSPECIFIED] Onset: 01-80-4536PdsyueyTxmwy non-traumatic joint disorders (20 sources)Polyarthropathy; Translations: [Polyarthritis, unspecified]Onset: 945075-78-3380IceonxaSudew non-traumatic joint disorders (3 sources)Pain in left elbow; Translations: [PAIN IN LEFT ELBOW]Onset: 08-37-9129FtvgbzmgUykqhxtphw arthritis and related disease (20 sources)Rheumatoid arthritis of multiple joints; Translations: [Rheumatoid arthritis without rheumatoid factor, multiple sites]Onset: 04-25-2017 Resolved: 974184-02-5240SrsjhndQmaz and subcutaneous tissue infections (5 sources)Cellulitis of left lower limb; Translations: [Abscess of finger of right hand]Onset: 673613-50-9532UhondvjrBltyqnpwyht; intervertebral disc disorders; other back problems (20 sources)Degeneration of cervical intervertebral disc; Translations: [Other cervical disc degeneration, unspecified cervical region]Onset: 12-16-2022 37-48-3511DwnikxyQawpqprqj-related disorders (20 sources)Nicotine dependence; Translations: [Nicotine dependence, unspecified, uncomplicated]Onset: 683133-24-6526JuzqyzvOldhxrhcfvv injury; contusion (7 sources)Unspecified superficial injury of left lower leg, initial encounter; Translations: [Contusion of right knee]Onset: 289001-07-6847Yxhgbecc Unclassified (1 source)CONTACT W/AND (SUSP) EXPOS COVID-19; Translations: [CONTACT W/AND (SUSP) EXPOS COVID-19]Onset: 30-31-1236Ssmfeommdjdj (3 sources)LOW BACK PAIN, UNSPECIFIED; Translations: [LOW BACK PAIN, UNSPECIFIED]Onset: 01-16-2022 Past or Other Problems Problem ClassificationProblemDateDocumented DateEpisodic/ChronicAdjustment disorders (20 sources)Adjustment disorder with depressed mood; Translations: [Adjustment disorder with depressed mood]Onset: 07-29-2022 Resolved: 997205-94-4407TsvbxzeAwghpdk disorders (20 sources)Anxiety; Translations: [Anxiety disorder, unspecified]Onset: 07-29-2022 Resolved: 929625-01-8554XcpptglDcpnmzssnq and other anemia (20 sources)Anemia; Translations: [Anemia, unspecified]Onset: 2015 64-77-7202HlbdxamfY Codes: Unspecified (1 source)Blood alcohol level of 240 mg/100 ml or more; Translations: [BLOOD ALCOHOL LV 240 MG/100 ML/MORE]Onset: 80-80-4172QobcyjkvIzlku and electrolyte disorders (20 sources)Hyponatremia; Translations: [Hypo-osmolality and hyponatremia]Onset: 596775-48-9313EmootivdTrzwihh and fatigue (3 sources)Weakness; Translations: [WEAKNESS]Onset: 99-26-7195XrakcmbiYnjht connective tissue disease (1 source)Other muscle spasm; Translations: [OTHER MUSCLE SPASM]Onset: 46-31-8583ShnorvxrHedzn connective tissue disease (20 sources)Full thickness rotator cuff tear; Translations: [Complete rotator cuff tear or rupture of unspecified shoulder, not specified as traumatic]Onset: 665556-90-5143KkumqlxtLvwvb connective tissue disease (20 sources)Tear of left rotator cuff; Translations: [Unspecified rotator cuff tear or rupture of left shoulder, not specified as traumatic]Onset: 07-29-2022 53-17-5732QrcctwhyByttv nervous system disorders (1 source)Anesthesia of skin; Translations: [ANESTHESIA OF SKIN]Onset: 99-57-4104VvclvqvhZisrb nervous system disorders (1 source)Paresthesia of skin; Translations: [PARESTHESIA OF SKIN]Onset: 51-66-5204QjblahpsFdkuw non-traumatic joint disorders (4 sources)Pain in unspecified joint; Translations: [PAIN IN UNSPECIFIED JOINT] Onset: 51-77-4247PxhfmdipIguxr upper respiratory infections (20 sources)Acute pansinusitis; Translations: [Acute pansinusitis, unspecified] Onset: 01-11-2024 Resolved: 817341-38-6083BcqsjcqnLgbainvwk by other medications and drugs (20 sources)Poisoning by unspecified drugs, medicaments and biological substances, accidental (unintentional), initial encounter; Translations: [Poisoning by unspecified drug or medicinal substance]Onset: 06-10-2023 84-80-4046ImlvtgdeCaoxnljm codes; unclassified (20 sources)Insomnia; Translations: [Insomnia, unspecified]Onset: 07-29-2022 Resolved: 136521-04-4219EojygobhGzhkvyjgisy; intervertebral disc disorders; other back problems (7 sources)Muscle spasm of back; Translations: [Cervicalgia]Onset: 09-30-2021 EpisodicSuicide and intentional self-inflicted injury (4 sources)Suicidal ideations; Translations: [SUICIDAL IDEATIONS]Onset: 56-60-1426AazzbkpoNthwghw (20 sources)Vasovagal syncope; Translations: [Syncope and collapse]Onset: 875294-62-5568YhblajnnGgqpnctslgfk (1 source)LOW BACK PAIN, UNSPECIFIED; Translations: [LOW BACK PAIN, UNSPECIFIED] Onset: 57-97-2044Osxki infection (20 sources)Viral infection, unspecified; Translations: [Disease caused by 2019-nCoV]Onset: 304056-95-9546Cplzzqrv Results Test NameValueInterpretationReference RangeFacilityUrate SerPl-mCncon 12-11-2024 Urate [Mass/Vol]mg/dLLow4.0-8.1CBethesda North HospitalCommclaren central [place] on above:Order Comment: Specimen Type: BLOOD SPECIMEN Ordering Facility: [facility] Address: [address] [place], [place] [address]Performed By: #### 4537-7 #### [facility] CLIA [id number] [address] [place] [address] [place] [address] [place] AMERICACCF URATE SERPL-MCNCon 93-46-9996THJ URATE SERPL-MCNC0.6 mg/dLLow4.0 - 8.1 mg/dLNOKY Healthcare Interpretation and review of laboratory resultsAbnormalNOKY HealthcareSpecimen Type: BLOOD SPECIMEN Ordering Facility: [facility] Address: [address] [place] [address] Original Ordering Provider: DEM[facility]F URATE SERPL-MCNC<0.2Low4.0 - 8.1 mg/dLNOKY HealthcareInterpretation and review of laboratory resultsAbnormSt. Charles Hospital HealthcareSpecimen Type: BLOOD SPECIMEN [facility]ing Facility: [facility] Address: [address] [place] [address] Original Ordering Provider: DELMY [facility] La[facility] HospitalUrate SerPl-mCncon 51-12-1776Lqysg [Mass/Vol]0.6 mg/dLLow4.0-8.1CKettering Health [facility] on above:Order Comment: Specimen Type: BLOOD SPECIMENOrdering Facility: [facility] Address:[address] [place], [place] [address]Performed By: #### 3084-1 ####[facility] [id number] [place], [place] [address]Mjwbl SerPl-mCncon 11-27-2024 Urate [Mass/Vol]mg/dLLow4.0-8.1CKettering Health [facility] on above:Order Comment: Specimen Type: BLOOD SPECIMENOrdering Facility: [facility] Address:[address] [place], [place] [address]Performed By: #### 3084-1 ####[facility] [id number] [place] [address] [facility]T SerPl-cCncon 49-12-6954FPR [Catalytic activity/Vol]55 U/HIwot95-01FdxqonggeMercy Health Perrysburg Hospital on above:Order Comment: Specimen Type: BLOOD SPECIMEN [facility]ing Facility: [facility] Address: [address] [place], [place] [address]Performed By: #### 4537-7 #### [facility] CLIA [id number] [address] [place] [address] [place] AMERICAAST SerPl-cCncon 11-13-2024 AST [Catalytic activity/Vol]37 U/JZnklet91-78OathqyyztMercy Health Perrysburg Hospital on above:Order Comment: Specimen Type: BLOOD SPECIMEN [facility]ing Facility: [facility] Address: [address] [place], [place] [address]Performed By: #### 4537-7 #### [facility] CLIA [id number] [address] [place] [address] [place] AMERICAAlbumin SerPl-mCncon 20-89-2211Iqbhaka [Mass/Vol]4.5 g/dLNormal3.9-4.9CBethesda North Hospital Comment on above:Order Comment: Specimen Type: BLOOD SPECIMEN [facility] Facility: [facility] Address: [address] [place], [place] [address]Performed By: #### 4537-7 #### [facility] CLIA [id number] [address] [place] [address] [place] AMERICACB W Auto Differential panel (Bld)on 36-03-1971Okwkvovun (Bld) [#/Vol]10*3/uLNormal<0.11CKettering Health [facility] on above:Order Comment: Specimen Type: BLOOD SPECIMEN [facility] Facility: [facility] Address: [address] [place], [place] [address]Performed By: #### 4537-7 #### [facility] CLIA [id number] [address] [place] [address] [place] AMERICABasophils/100 WBC (Bld)0.3 % NormalMercy Health Perrysburg Hospital on above:Order Comment: Specimen Type: BLOOD SPECIMEN [facility]ing Facility: [facility] Address: [address] [place], [place] [address]Performed By: #### 4537-7 #### [facility] CLIA [id number] [address] [place] [address] [place] AMERICADifferential cell count method Nom (Bld)AutoNormalCKettering Health [facility] on above:Order Comment: Specimen Type: BLOOD SPECIMEN [facility]ing Facility: [facility] Address: [address] [place], [place] [address]Performed By: #### 4537-7 #### [facility] CLIA [id number] [address] [place] [address] [place] AMERICAEosinophils (Bld) [#/Vol] 0.03 10*3/uLNormal<0.46[facility] on above:Order Comment: Specimen Type: BLOOD SPECIMEN [facility] Facility: [facility] Address: [address] [place], [place] [address]Performed By: #### 4537-7 #### [facility] CLIA [id number] [address] [place] [address] [place] AMERICAEosinophils/100 WBC (Bld)0.5 %NormalMercy Health Perrysburg Hospital on above:Order Comment: Specimen Type: BLOOD SPECIMEN [facility] Facility: [facility] Address: [address] [place], [place] [address]Performed By: #### 4537-7 #### [facility] CLIA [id number] [address] [place] [address] [place] AMERICAErythrocyte distribution width (RBC) [Ratio]13.2 %Rrpabn97.5-15.0[facility] on above:Order Comment: Specimen Type: BLOOD SPECIMEN [facility] Facility: [facility] Address: [address] [place], [place] [address]Performed By: #### 4537-7 #### [facility] CLIA [id number] [address] [place] [address] [place] AMERICAHematocrit (Bld) [Volume fraction]40.8 %Raofbd14.0-51.0[facility] on above:Order Comment: Specimen Type: BLOOD SPECIMEN [facility] Facility[facility] Address: [address] [place], [place] [address]Performed By: #### 4537-7 #### [facility] CLIA [id number] [address] [place] [address] [place] AMERICAHemoglobin (Bld) [Mass/Vol] 14.2 g/eVAwwkro16.0-17.0[facility] on above:Order Comment: Specimen Type: BLOOD SPECIMEN Order[facility] Facility: [facility] Address: [address] [place], [place] [address]Performed By: #### 4537-7 #### [facility] CLIA [id number] [address] [place] [address] [place] AMERICAImmature granulocytes (Bld) [#/Vol]10*3/uLNormal<0.10[facility] on above:Order Comment: Specimen Type: BLOOD SPECIMEN [facility] Facility: [facility] Address: [address] [place], [place] [address]Performed By: #### 4537-7 #### [facility] CLIA [id number] [address] [place] [address] [place] AMERICAImmature granulocytes/100 WBC (Bld)0.3 %NormalMercy Health Perrysburg Hospital on above:Order Comment: Specimen Type: BLOOD SPECIMEN [facility] Facility[facility] Address: [address] [place], [place] [address]Performed By: #### 4537-7 #### [facility] CLIA [id number] [address] [place] [address] [place] AMERICALymphocytes (Bld) [#/Vol] 2.44 10*3/uLNormal1.00-4.00[facility] on above:Order Comment: Specimen Type: BLOOD SPECIMEN [facility] Facility[facility] Address: [address] [place], [place] [address]Performed By: #### 4537-7 #### [facility] CLIA [id number] [address] [place] [address] [place] AMERICALymphocytes/100 WBC (Bld) 36.7 %NormalMercy Health Perrysburg Hospital on above:Order Comment: Specimen Type: BLOOD SPECIMEN [facility] Facility: [facility] Address: [address] [place], [place] [address]Performed By: #### 4537-7 #### [facility] CLIA [id number] [address] [place] [address] STATES OF [facility]ITALH (RBC) [Entitic mass]30.2 yrQmcmdi99.0-34.0[facility] on above:Order Comment: Specimen Type: BLOOD SPECIMEN [facility] Facility: [facility] Address: [address] [place], [place] [address]Performed By: #### 4537-7 #### [facility] CLIA [id number] [address] [place] [address] [facility] HOSPITALMCHC (RBC) [Mass/Vol]34.8 g/zTZrdnbc42.5-36.0[facility] on above:Order Comment: Specimen Type: BLOOD SPECIMEN [facility] Facility: [facility] Address: [address] [place], [place] [address]Performed By: #### 4537-7 #### [facility] CLIA [id number] [address] [place], [place] [address]V (RBC) [Entitic vol]86.8 xWAsrcva54.0-100.0[facility] on above:Order Comment: Specimen Type: BLOOD SPECIMEN [facility] Facility: [facility] Address: [address] [place], [place] [address]Performed By: #### 4537-7 #### [facility] CLIA [id number] [address] [place] [address] [place] AMERICAMonocytes (Bld) [#/Vol]0.42 10*3/uLNormal<0.87[facility] on above:Order Comment: Specimen Type: BLOOD SPECIMEN [facility] Facility: [facility] Address: [address] [place], [place] [address]Performed By: #### 4537-7 #### [facility] CLIA [id number] [address] [place] [address] [place] AMERICAMonocytes/100 WBC (Bld)6.3 % NormalMercy Health Perrysburg Hospital on above:Order Comment: Specimen Type: BLOOD SPECIMEN Ordering Facility: [facility] Address: [address] [place], [place] [address]Performed By: #### 4537-7 #### [facility] CLIA [id number] [address] [place] [address] [place] AMERICANeutrophils (Bld) [#/Vol] 3.71 10*3/uLNormal1.45-7.50[facility] on above:Order Comment: Specimen Type: BLOOD SPECIMEN [facility] Facility: [facility] Address: [address] [place], [place] [address]Performed By: #### 4537-7 #### [facility] CLIA [id number] [address] [place] [address] [place] AMERICANeutrophils/100 WBC (Bld) 55.9 %NormalMercy Health Perrysburg Hospital on above:Order Comment: Specimen Type: BLOOD SPECIMEN [facility] Facility: [facility] Address: [address] [place], [place] [address]Performed By: #### 4537-7 #### [facility] CLIA [id number] [address] [place] [address] [place] AMERICANucleated RBC (Bld) [#/Vol] 10*3/uLNormal<0.01[facility] on above:Order Comment: Specimen Type: BLOOD SPECIMEN [facility] Facility: [facility] Address: [address] [address] [place], [place] [address]Performed By: #### 4537-7 #### [facility] CLIA [id number] [address] [place], [place] [address] [place] OF AMERICANucleated RBC/100 WBC (Bld) [Ratio]0.0 /100 WBCNormalCKettering Health Miamisburg on above:Order Comment: Specimen Type: BLOOD SPECIMEN [facility] Address: [address] [place], [place] [address]Performed By: #### 4537-7 #### [facility] CLIA [id number] [address] [place] [address] [place] AMERICAPlatelet mean volume (Bld) [Entitic vol]10.5 fLNormal9.0-12.7CKettering Health Miamis[facility] on above: Order Comment: Specimen Type: BLOOD SPECIMEN [facility] Address: [address] [place], [place] [address]Performed By: #### 4537-7 #### [facility] CLIA [id number] [address] [place] [address] [place] AMERICAPlatelets (Bld) [#/Vol]318 10*3/zDJojxjk161-423XokdrzqhpMercy Health [facility]sburg Hospital on above:Order Comment: Specimen Type: BLOOD SPECIMEN [facility] Address: [address] [place], [place] [address]Performed By: #### 4537-7 #### [facility] CLIA [id number] [address] [place] [address] [place] AMERICARBC (Bld) [#/Vol]4.70 10*6/uLNormal4.20-6.00[facility] on above:Order Comment: Specimen Type: BLOOD SPECIMEN [facility] Address: [address] [place], [place] [address]Performed By: #### 4537-7 #### [facility] CLIA [id number] [address] [place] [address] [place] AMERICAWBC (Bld) [#/Vol]6.64 10*3/uLNormal3.70-11.00[facility] HospitalCommclaren central [place] on above:Order Comment: Specimen Type: BLOOD SPECIMEN [facility] Address: [address] [place], [place] [address]Performed By: #### 4537-7 #### [facility] CLIA [id number] [address] [place] [address] [id number] [place], [place] [address]CC CBC W AUTO DIFF BLDon 55-42-8762Saoinqomr/100 WBC (Bld)0.3 %[facility] BASOPHILS # BLD AUTO <0.03NIBaptist Memorial Hospital DIFFERENTIAL METHOD BLDAutoNOMCarondelet Health EOSINOPHIL # BLD AUTO0.03NIBaptist Memorial Hospital LYMPHOCYTES # BLD AUTO2.44NOHannibal Regional Hospital MONOCYTES # BLD AUTO0.42NIBaptist Memorial Hospital NEUTROPHILS # BLD AUTO3.71[facility] NRBC # BLD AUTO<0.01NIBaptist Memorial Hospital NRBC/100 WBC BLD-RTO0/100 WBCPershing Memorial Hospital PLATELET # BLD RICY842SVTFPershing Memorial Hospital PMV BLD AUTO10.5 fL9.0 - 12.7 fLPershing Memorial Hospital WBC # BLD AUTO6.64NOMercy hospital springfieldEosinophils/100 WBC (Bld)0.5 %[facility] Memorial HealthcareErythrocyte distribution width (RBC) [Ratio]13.2 %11.5 - 15.0 %[facility] HealthcareHematocrit (Bld) [Volume fraction]40.8 %39.0 - 51.0 %[facility] HealthcareHemoglobin (Bld) [Mass/Vol]14.2 g/dL 13.0 - 17.0 g/dLCedar County Memorial Hospital GRANULOCYTES # BLD AUTO<0.03NIMilan General Hospital GRANULOCYTES/LEUK NFR BLD AUTO0.3 %[facility] HealthcareLymphocytes/100 WBC (Bld)36.7 %[facility]'sH (RBC) [Entitic mass]30.2 pg26.0 - 34.[address] John'sHC (RBC) [Mass/Vol]34.8 g/dL30.5 - 36.0 g/dLCitizens Memorial HealthcareMCV (RBC) [Entitic vol]86.8 fL80.0 - 100.0 fLCitizens Memorial HealthcareMonocytes/100 WBC (Bld)6.3 % [facility] HealthcareNeutrophils/100 WBC (Bld)55.9 %NOMS HealthcareRBC (Bld) [#/Vol] 4.7 10*6/uL4.20 - 6.00 m/uLNOMS HealthcareSpecimen Type: BLOOD SPECIMEN [facility] Address: [address] [place] [address] Original Ordering Provider: [facility]ERPelham [facility] [id number] (HEMTSA) NICK WRAY Keena ([id number]) 1990 M Date Time Provider Department 11/13/24 LESIA COVARRUBIAS During your visit today, we recorded the following information about you: Lesia Covarrubias RN 11/13/2024 4:25 PM Signed Nick is scheduled for his Krystexxa tomorrow 11/14/24 in our [facility]. His uric acid today was 9.5. Do you want us to treat? Please advise. Thank you, DELMIS Wang Judith D, MD 11/13/2024 5:19 PM Signed OK to proceed with infusion. thx Allergies As of Date: 11/13/2024 (Not on File) Date Reviewed: 10/03/2024 Reviewed by: Caren Vogt LPN - Fully Assessed Reason for Visit: Patient Update [1234] Results [95] Cmt: Uric Acid Prescriptions as of 11/13/2024 - predniSONE (DELTASONE) 5 mg tablet Take 6 tab in AM on day 1 then reduce dose by 1 tablet every day until off - folic acid 1 mg tablet Take 1 tablet by mouth once daily. - methotrexate 2.5 mg tablet Take 6 tablets by mouth one time a week. Hold if you have infection or fevers 100.4 F or higher. May resume once infection resolved. LABS EVERY 3 MONTHS - cloNIDine HCl (CATAPRES) 0.1 mg tablet Take 0.1 mg by mouth two times a day. - febuxostat (ULORIC) 40 mg tab Take 1 tablet by mouth once daily. - colchicine 0.6 mg tablet Take 1 tablet by mouth once daily. - amLODIPine (NORVASC) 5 mg tablet Take 1 tablet by mouth twice daily. Problem List As Of Date 11/13/2024 Noted Resolved Rheumatoid arthritis flare (HCC) [M06.9] 04/25/2017 05/10/2017 Nicotine use disorder, F17.2 [F17.200] 04/26/2017 Gout [M10.9] 04/26/2017 Chronic pain [G89.29] 04/26/2017 Rheumatoid arthritis of multiple sites with neg*05/10/2017 Idiopathic chronic gout of multiple sites with *01/18/2018 Encounter Status:Closed by DELMY BOYLE on 11/13/24[facility] HealthcareCle[facility] (Olive LoomUAV) NICK WRAY ([id number]) 1990 M Date Time Provider Department 11/13/24 DELMY BOYLE During your visit today, we recorded the following information about you: Allergies As of Date: 11/13/2024 (Not on File) Date Reviewed: 10/03/2024 Reviewed by: Caren Vogt LPN - Fully Assessed Prescriptions as of 11/13/2024 - predniSONE (DELTASONE) 5 mg tablet Take 6 tab in AM on day 1 then reduce dose by 1 tablet every day until off - folic acid 1 mg tablet Take 1 tablet by mouth once daily. - methotrexate 2.5 mg tablet Take 6 tablets by mouth one time a week. Hold if you have infection or fevers 100.4 F or higher. May resume once infection resolved. LABS EVERY 3 MONTHS - cloNIDine HCl (CATAPRES) 0.1 mg tablet Take 0.1 mg by mouth two times a day. - febuxostat (ULORIC) 40 mg tab Take 1 tablet by mouth once daily. - colchicine 0.6 mg tablet Take 1 tablet by mouth once daily. - amLODIPine (NORVASC) 5 mg tablet Take 1 tablet by mouth twice daily. Problem List As Of Date 11/13/2024 Noted Resolved Rheumatoid arthritis flare (HCC) [M06.9] 04/25/2017 05/10/2017 Nicotine use disorder, F17.2 [F17.200] 04/26/2017 Gout [M10.9] 04/26/2017 Chronic pain [G89.29] 04/26/2017 Rheumatoid arthritis of multiple sites with neg*05/10/2017 Idiopathic chronic gout of multiple sites with *01/18/2018 Encounter Status:Closed by DELMY BOYLE on 11/13/24NormalCBucyrus Community Hospital SerPl-mCncon 27-61-9470RHI [Mass/Vol]mg/LNormal<0.9CKettering Health [facility] on above:Order Comment: Specimen Type: BLOOD SPECIMENOrdering Facility: [facility] Address:[address] [place], [place] [address]Performed By: #### 1988-5 ####[facility]IA [id number] [place] [address] [place] Creatinine and Glomerular filtration rate.predicted panel (S/P/Bld)on 11-13-2024 Creatinine [Mass/Vol]1.29 mg/dLHigh0.73-1.22[facility] on above:Order Comment: Specimen Type: BLOOD SPECIMENOrdering Facility: [facility] Address:[address] [place], [place] [address]Performed By: #### 29364-2 ####[facility] LABCLIA [id number] [place], [place] [address]nRJPbq SerPlBld CKD-EPI 679881 mL/min/1.73m???Normal >=60[facility] on above:Order Comment: Specimen Type: BLOOD SPECIMENOrdering Facility: [facility] Address:[address] [place], [place] [address]Result Comment: Estimated Glomerular Filtration Rate (eGFR) is calculated using the 2020 CKD-EPI creatinine equation. This equation utilizes serum creatinine, sex, and age as parameters. The creatinine assay has traceable calibration to isotope dilution-mass spectrometry. Refer to KDIGO guidelines for clinical interpretation. In patients with unstable renal function, e.g. those with acute kidney injury, the eGFR may not accurately reflect actual GFR.Performed By: #### 36679-2 ####[facility] LABCLIA [id number] [place], [place] [address]NFK Westergren method (Bld) [Velocity]on 15-62-8207FEM (Bld) [Velocity]2 mm/hNormal- [facility] on above:Order Comment: Specimen Type: BLOOD SPECIMENOrdering Facility: [facility] Address:[address] [place], [place] [address]Performed By: #### 4537-7 ####[facility]IA [id number] [place] [address] [place] AMERICAUrate SerPl-mCncon 33-16-6541Oraue [Mass/Vol]9.5 mg/dLHigh4.0-8.1 [facility] on above:Order Comment: Specimen Type: BLOOD SPECIMEN [facility] Address: [address] [place], [place] [address]Performed By: #### 4537-7 #### [facility] CLIA [id number] [address] [place] [address] [place] [address] [place] AMERICACNPNon [id number] Telephone (HEMTSA) NICK WRAY ([id number]) 1990 M Date Time Provider Department 11/08/24 LESIA COVARRUBIAS During your visit today, we recorded the following information about you: Lesia Covarrubias RN 11/08/2024 9:18 AM Signed Nick is scheduled to receive his Krystexxa infusion in our [place] [facility] on 11/17. Can you please sign the orders to prevent a delay in treatment? Thank you, DELMIS Wang Judith D, MD 11/08/2024 12:26 PM Signed Orders signed. thx Allergies As of Date: 11/08/2024 (Not on File) Date Reviewed: 10/03/2024 Reviewed by: Caren Vogt LPN - Fully Assessed Reason for Visit: Orders [681] Cmt: Krystexxa Orders Prescriptions as of 11/13/2024 - predniSONE (DELTASONE) 5 mg tablet Take 6 tab in AM on day 1 then reduce dose by 1 tablet every day until off - folic acid 1 mg tablet Take 1 tablet by mouth once daily. - methotrexate 2.5 mg tablet Take 6 tablets by mouth one time a week. Hold if you have infection or fevers 100.4 F or higher. May resume once infection resolved. LABS EVERY 3 MONTHS - cloNIDine HCl (CATAPRES) 0.1 mg tablet Take 0.1 mg by mouth two times a day. - febuxostat (ULORIC) 40 mg tab Take 1 tablet by mouth once daily. - colchicine 0.6 mg tablet Take 1 tablet by mouth once daily. - amLODIPine (NORVASC) 5 mg tablet Take 1 tablet by mouth twice daily. Problem List As Of Date 11/08/2024 Noted Resolved Rheumatoid arthritis flare (HCC) [M06.9] 04/25/2017 05/10/2017 Nicotine use disorder, F17.2 [F17.200] 04/26/2017 Gout [M10.9] 04/26/2017 Chronic pain [G89.29] 04/26/2017 Rheumatoid arthritis of multiple sites with neg*05/10/2017 Idiopathic chronic gout of multiple sites with *01/18/2018 Encounter Status:Closed by LESIA COVARRUBIAS on 11/13/24NormalCDoctors Hospital HGB BLD-MCNCon [id number] (Bld) [Mass/Vol]14.9 g/dL13.0 - 17.0 g/dLNOKY HealthcareSpecimen Type: BLOOD SPECIMEN [facility] Address: [address] [place] [address] Original Ordering Provider: DELMY SPENCERCitizens Memorial HealthcareQybugziskfB-9-PZ QUANTITATIVEon 27-72-2023L6KJ (RBC) [Catalytic activity/Mass]13.0 U/g HbNormal 9.8-15.5CKettering Health [facility] on above:Order Comment: Specimen Type: BLOOD SPECIMENOrdering Facility: [facility] Address:[address] [place], [place] [address]Result Comment: This test was developed, and its performance characteristics determined by the [facility] Department of Pathology and Laboratory Medicine. It has not been cleared or approved bythe FDA. The [facility] Department of Pathology and Laboratory Medicine is regulated under CLIA as qualified to perform high-complexity testing. This test is used for clinical purposes. It should not be regarded as investigational or for research.Performed By: #### 718-7, QTG6PD ####[facility]IA [id number] [address] STATES OF AMERICAHgb Bld-mCncon 74-30-1740Ensxproahj (Bld) [Mass/Vol]14.9 g/dLNormal 13.0-17.0[facility] on above:Order Comment: Specimen Type: BLOOD SPECIMENOrdering Facility: [facility] Address:[address] [place], [place] [address]Performed By: #### 718-7 ####[facility] LABCLIA [id number] [place] [address] Hemoglobin (Bld) [Mass/Vol]15.1 g/gHCoiggq05.0-17.0[facility] Comment on above:Order Comment: Specimen Type: BLOOD SPECIMENOrdering Facility: External Submitter Address: , ,Performed By: #### 718-7, QTG6PD ####[facility]CLIA [id number] [facility] MEDICAL CENTERDonal [address] [address] [address] [address] HOSPITALCNPNon [id number] (PHAH) NICK WRAY ([id number]) 1990 M Date Time Provider Department 10/06/24 DELMY BOYLE During your visit today, we recorded the following information about you: John Paul Rajan 10/06/2024 5:36 AM Signed Delmy Boyle MD 10/09/2024 5:48 AM Signed Rheum pool - per my JOSY note: Given worsening tophaceous gout despite uric acid lowering agents, I recommend Krystexxa. R/B/A of Krystexxa d/w patient. Advise that we will need to check G6PD and start methotrexate prior to starting Krystexxa infusion. Literature on Krystexxa given. He would like some time to think about it and see if his work schedule will accommodate time off for the infusions. He will contact our office if he decides to proceed with the infusion Please contact patient to see if he has made a final decision whether he wishes to proceed with Krystexxa infusion. -->If not, please advise Pharm Team to cancel PA and notify me so that I can cancel the Krystexxa therapy plan. -->If he wishes to proceed with Krystexxa, please route encounter back to me for actioning. Caren Evans LPN 10/09/2024 9:36 AM Signed Spoke with Nick. He would like to proceed with infusions if insurance approves. Closest infusion center is [place], I believe. Routed to [facility] infusion for order specifications needed for Krystexxa. Ranjana Garner 10/10/2024 8:52 AM Signed Patient has been scheduled and notified. Thanks! Pham Sharp 10/11/2024 4:32 PM Signed Chai Good Afternoon, Just following up--is there any update regarding the [id number]-tt-pnwl or appeal for the Krystexxa denial? Since the patient is interested in proceeding with treatment, we?d like to stay aligned on next steps. Let us know when you have a moment. Thank you! Thanks, Delmy Brown MD 10/12/2024 5:45 AM Addendum Rheum pool: please contact insurance to set up P2P appointment with me. Best times are Wednesday from 11 to 5 pm and Fridays after 1 pm. If these dates/times do not work, ok to schedule soonest date/time that is available. Craen Vogt LPN 10/12/2024 3:42 PM Signed Called medicaid to schedule peer to peer. You can not speak to anyone, it is only a voicemail line. Left detailed voicemail with Patient name, , Medicaid ID, Case # and medication name, Physician name, NPI, Physician phone number and pod phone number. Denial requesting 3 month trial of Probenacid. Labs were obtained per request. Methotrexate is ordered. Please advise if there is any information you would like forwarded to [facility] prior to peer to peer. Lamont Brink 10/17/2024 11:04 PM Signed Good evening. is there any update regarding the pjxn-rr-rcsl for the Krystexxa denial? Thanks -Caren Serrano LPN 10/18/2024 10:48 AM Signed Called [facility] reviewed P2P request, spoke with Tanya. [facility] is not covering insurance for infusion. Transferred to [facility], spoke with Mendez, who was able to review P2P request. Pharmacy to contact Dr. Boyle on work cell today for P2P. Time on encounter 56minutes. Caren Vogt LPN 10/18/2024 10:[address] Boyle contacted by [facility]. Kang approved. Nick updated. Pharmacy auth team updated. Allergies As of Date: 10/06/2024 (Not on File) Date Reviewed: 10/03/2024 Reviewed by: Caren Vogt LPN - Fully Assessed Reason for Visit: Insurance Authorization [[id number]] Cmt: Preferred Drug wP2P: NICK WRAY JUDITH Donal Prescriptions as of 10/18/2024 - folic acid 1 mg tablet Take 1 tablet by mouth once daily. - methotrexate 2.5 mg tablet Take 6 tablets by mouth one time a week. Hold if you have infection or fevers 100.4 F or higher. May resume once infection resolved. LABS EVERY 3 MONTHS - cloNIDine HCl (CATAPRES) 0.1 mg tablet Take 0.1 mg by mouth two times a day. - febuxostat (ULORIC) 40 mg tab Take 1 tablet by mouth once daily. - colchicine 0.6 mg tablet Take 1 tablet by mouth once daily. - amLODIPine (NORVASC) 5 mg tablet Take 1 tablet by mouth twice daily. Problem List As Of Date 10/06/2024 Noted Resolved Rheumatoid arthritis flare (HCC) [M06.9] 04/25/2017 05/10/2017 Nicotine use disorder, F17.2 [F17.200] 04/26/2017 Gout [M10.9] 04/26/2017 Chronic pain [G89.29] 04/26/2017 Rheumatoid arthritis of multiple sites with neg*05/10/2017 Idiopathic chronic gout of multiple sites with *01/18/2018 Encounter Status:Closed by JOHN PAUL RAJAN on 10/06/24[facility] [id number] Visit (ANA) NICK WRAY ([id number]) 1990 M Date Time Provider Department 10/03/24 8:00 AM DELMY BOYLE During your visit today, we recorded the following information about you: Pulse Respiration Blood pressure Weight 75/minute 16/minute 145/102 100.3 kg Height 1.88 m Delmy Boyle MD 10/03/2024 11:17 AM Signed DX: chronic tophaceous gout, possible [...] arthritic flares once every 4 months[address] trim installer [address] Jaime in [place] who did diagnostic knee aspiration which according to patient was positive for uric acid crystals. Treated with steroids and continued allopurinol. He has not seen Dr. Jaime since 2014. In 2014, he was hospitalized in [place] for acute polyarthritis. Saw trim installer while in hospital who told him that he possibly had RA. Discharged on steroids. His PCP switched him from allopurinol to Uloric Jan 2017. He also takes colchicine prn. No reduction in frequency or severity of his joint flares with Uloric. In 2016, he has been hospitalized 7-8 times for acute joint flares. Each time he is treated with steroids. Hospitalized at [facility] Apr 2017 for acute flare of [...] PMH: possible seronegative RA, CKD On allopurinol 800 mg daily+colchicine 0.6 mg qod PLAN: 1. TOPHACEOUS GOUT -off Uloric with increase in his SUA from 5.7 to 11.1 mg/dL. He is unable to afford OOP costs of Uloric. -We had previously discussed Krystexxa infusion but he declined because he is not able to travel and take time off every 2 weeks for the infusion. 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 Mild right foot osteoarthritis. Results d/w patient -01/04/2024 XR BL knees: Bilateral prepatellar gouty tophi, similar to 05/04/2017. Mild right knee osteoarthritis. Results d/w patient -SUA was at goal (4.7 in 11/2023) but now 12.9 . He admits to ETOH and infrequent missed allopurinol doses. Consistent with colchicine qod -we had previously discussed starting Krystexxa but he declined because of his work schedule. Given worsening tophaceous gout despite uric acid lowering agents, I recommend Krystexxa. R/B/A of Krystexxa d/w patient. Advise that we will need to check G6PD and start methotrexate prior to starting Krystexxa infusion. Literature on Krystexxa given. He would like some time to think about it and see if his work schedule will accommodate time off for the infusions. He will contact our office if he decides to proceed with the infusion -in the meantime, we agreed to stop allopurinol and switch to Uloric daily (starting dose 40 mg daily and can uptitrate dose if uric acid remains above 6 mg/dL) and increase colchicine to 0.6 mg daily -I asked that he have labs done [...] exam -hold off on DMARDs for now. If he decides to proceed with Krystexxa, will start methotrexate 4. LEFT SHOULDER ROTATOR CUFF TEAR/ADHESIVE CAPSULITIS/LABRAL [...] shoulder surgery by Dr. Tc Coffey at [facility]. No p (more content not included)...NormalCleveland Clinic Mentor HospitalCNPNon [id number] Telephone (vidIQ) NICK WRAY ([id number]) 1990 M Date Time Provider Department 10/03/24 DELMY BOYLE During your visit today, we recorded the following information about you: Caren Vogt LPN 10/03/2024 9:00 AM Signed Urgent prior authorization request and today's office notes faxed to [facility]. Estelabuxdanuta/Uloric Camilla Holt LPN 10/03/2024 4:10 PM Signed Patient has been identified by name and date of : Yes, Provider Matthew Date today Time now - [facility] Febuxostat 40 mg tablet Approved 10/03/24 -0 10/02/2025 Type of form: Prior Authorization Form received via: Fax Form has been forwarded to: Sent to benitez Holt LPN Allergies As of Date: 10/03/2024 (Not on File) Date Reviewed: 10/03/2024 Reviewed by: Caren Vogt LPN - Fully Assessed Reason for Visit: Insurance Authorization [[id number]] Cmt: Febuxostat Prescriptions as of 10/03/2024 - cloNIDine HCl (CATAPRES) 0.1 mg tablet Take 0.1 mg by mouth two times a day. - febuxostat (ULORIC) 40 mg tab Take 1 tablet by mouth once daily. - colchicine 0.6 mg tablet Take 1 tablet by mouth once daily. - amLODIPine (NORVASC) 5 mg tablet Take 1 tablet by mouth twice daily. Problem List As Of Date 10/03/2024 Noted Resolved Rheumatoid arthritis flare (HCC) [M06.9] 04/25/2017 05/10/2017 Nicotine use disorder, F17.2 [F17.200] 04/26/2017 Gout [M10.9] 04/26/2017 Chronic pain [G89.29] 04/26/2017 Rheumatoid arthritis of multiple sites with neg*05/10/2017 Idiopathic chronic gout of multiple sites with *01/18/2018 Encounter Status:Closed by CAREN VOGT on 10/03/24NormC[facility] Clinic [facility] SerPl-cCncon 06-58-9841LJT [Catalytic activity/Vol]22 U/LNormal 10-54[facility] on above:Order Comment: Specimen Type: BLOOD SPECIMENOrdering Facility: [facility] Address:[address] [place], [place] [address]Performed By: #### 3084-1, 1919-09, 1741-07, 1750-08 ####[facility] LABCLIA [id number] [place], [place] [address]CQX SerPl-cCncon 65-32-6223UKO [Catalytic activity/Vol]21 U/QStllfc80-77ZzvtzpzaqMercy Health [facility] Hospital on above:Order Comment: Specimen Type: BLOOD SPECIMENOrdering Facility: [facility] Address:[address] [place], [place] [address]Performed By: #### 3084-1, 1919-09, 1741-07, 1750-08 ####[facility] LABCLIA [id number] [place], [place] [address]Xgdorck SerPl-mCncon 52-47-3486Jnwwpcu [Mass/Vol]4.5 g/dL Normal3.9-4.9CKettering Health [facility] on above:Order Comment: Specimen Type: BLOOD SPECIMENOrdering Facility: [facility] Address:[address] [place], [place] [address]Performed By: #### 3084-1, 1920-8, 1742-6, 1751-7 ####[facility] LABCLIA [id number] [place], [place] [address]SPF W Auto Differential panel (Bld)on 25-26-8268Kspubhiqg (Bld) [#/Vol]0.03 10*3/uLNormal<0.11CKettering Health [facility] on above: Order Comment: Specimen Type: BLOOD SPECIMENOrdering Facility: [facility] Address:[address] [place], [place] [address]Performed By: #### 57610- 8 ####[facility] LABCLIA [id number] [place], [place] [address]Rfngzhxms/100 WBC (Bld)0.4 %NormalMercy Health Perrysburg Hospital on above:Order Comment: Specimen Type: BLOOD SPECIMENOrdering Facility: [facility] Address:[address] [place], [place] [address]Performed By: #### 69752-1 ####[facility] LABCLIA [id number] [place], [place] [address]Kbmrefvfxtfe cell count method Nom (Bld)AutoNormalCKettering Health Miamisburg on above:Order Comment: Specimen Type: BLOOD SPECIMENOrdering Facility: [facility] Address:[address] [place], [place] [address]Performed By: #### 72264-1 ####[facility] LABCLIA [id number] [place], [place] [address]Iafrbnjwxvj (Bld) [#/Vol]10*3/uLNormal<0.46[facility] on above:Order Comment: Specimen Type: BLOOD SPECIMENOrdering Facility: [facility] Address:[address] [place], [place] [address]Performed By: #### 79477-3 ####[facility] LABIA [id number] [place], [place] [address]Roedxrerdgz/100 WBC (Bld)0.3 %NormalMercy Health Perrysburg Hospital on above:Order Comment: Specimen Type: BLOOD SPECIMENOrdering Facility: [facility] Address:[address] [place], [place] [address]Performed By: #### 03737-9 ####[facility] LABIA [id number] [place], [place] [address]Vhirfdspcnw distribution width (RBC) [Ratio]14.0 %Normal 11.5-15.0[facility] on above:Order Comment: Specimen Type: BLOOD SPECIMENOrdering Facility: [facility] Address:[address] [place], [place] [address]Performed By: #### 32197-6 ####[facility] LABIA [id number] [place] [address] Hematocrit (Bld) [Volume fraction]42.0 %Jgnthm80.0-51.0[facility] on above:Order Comment: Specimen Type: BLOOD SPECIMENOrdering Facility: [facility] Address:[address] [place], [place] [address]Performed By: #### 21683-7 ####[facility] LABIA [id number] [place], [place] [address]Tvkiudkjtm (Bld) [Mass/Vol]14.6 g/sXTtdhre22.0-17.0[facility] on above:Order Comment: Specimen Type: BLOOD SPECIMENOrdering Facility: [facility] Address:[address] [place], [place] [address]Performed By: #### 71777-5 ####[facility] LABIA [id number] [place], [place] [address]Pubsfyye granulocytes (Bld) [#/Vol]0.04 10*3/uLNormal <0.10[facility] on above:Order Comment: Specimen Type: BLOOD SPECIMENOrdering Facility: [facility] Address:[address] [place], [place] [address]Performed By: #### 45932-8 ####[facility] LABCLIA [id number] [place], [place] [address]Arpylojf granulocytes/100 WBC (Bld)0.5 %NormalMercy Health Perrysburg Hospital on above: Order Comment: Specimen Type: BLOOD SPECIMENOrdering Facility: [facility] Address:[address] [place], [place] [address]Performed By: #### 47413- 8 ####[facility] LABIA [id number] [place], [place] [address]Iofridxrugd (Bld) [#/Vol]3.51 10*3/uLNormal1.00-4.00 [facility] on above:Order Comment: Specimen Type: BLOOD SPECIMENOrdering Facility: [facility] Address:[address] [place], [place] [address]Performed By: #### 83912-2 ####[facility] LABIA [id number] [place], [place] [address]Ygtaaeqkrcu/100 WBC (Bld)45.8 %NormalMercy Health Perrysburg Hospital on above:Order Comment: Specimen Type: BLOOD SPECIMENOrdering Facility: [facility] Address:[address] [place], [place] [address]Performed By: #### 04184-5 ####[facility] LABIA [id number] [place], [place] [address]XYH (RBC) [Entitic mass]30.5 heDiwrpq18.0-34.0[facility] on above:Order Comment: Specimen Type: BLOOD SPECIMENOrdering Facility: [facility] Address:[address] [place], [place] [address]Performed By: #### 23567-8 ####[facility] LABIA [id number] [place], [place] [address]ENDZ (RBC) [Mass/Vol]34.8 g/yQSoeisq63.5-36.0[facility] on above: Order Comment: Specimen Type: BLOOD SPECIMENOrdering Facility: [facility] Address:[address] [place], [place] [address]Performed By: #### 56699- 8 ####[facility] LABIA [id number] [place], [place] [address]DGQ (RBC) [Entitic vol]87.7 aNMsiguq07.0-100.0[facility] on above:Order Comment: Specimen Type: BLOOD SPECIMENOrdering Facility: [facility] Address:[address] [place], [place] [address]Performed By: #### 79490-7 ####[facility] LABIA [id number] [place], [place] [address]Nviqqzaum (Bld) [#/Vol]0.48 10*3/uLNormal<0.87[facility] on above:Order Comment: Specimen Type: BLOOD SPECIMENOrdering Facility: [facility] Address:[address] [place], [place] [address]Performed By: #### 08253- 8 ####[facility] LABIA [id number] [place], [place] [address]Zswosvsxn/100 WBC (Bld)6.3 %NormalMercy Health Perrysburg Hospital on above:Order Comment: Specimen Type: BLOOD SPECIMENOrdering Facility: [facility] Address:[address] [place], [place] [address]Performed By: #### 51961-9 ####[facility] LABIA [id number] [place], [place] [address]Xwefgxxpjoo (Bld) [#/Vol]3.58 10*3/uLNormal1.45-7.50[facility] on above:Order Comment: Specimen Type: BLOOD SPECIMENOrdering Facility: [facility] Address:[address] [place], [place] [address]Performed By: #### 05947-6 ####[facility] LABCLIA [id number] [place], [place] [address]Cvijgufkqxi/100 WBC (Bld)46.7 %NormalMercy Health Perrysburg Hospital on above:Order Comment: Specimen Type: BLOOD SPECIMENOrdering Facility: [facility] Address:[address] [place], [place] [address]Performed By: #### 80595-2 ####[facility] LABCLIA [id number] [place], [place] [address]Psqvlnztq RBC (Bld) [#/Vol] 10*3/uLNormal<0.01[facility] on above:Order Comment: Specimen Type: BLOOD SPECIMENOrdering Facility: [facility] Address:[address] [place], [place] [address]Performed By: #### 89376-2 ####[facility] LABCLIA [id number] [place], [place] [address]Hyzudergi RBC/100 WBC (Bld) [Ratio]0.0 /100 WBCNormal [facility] on above:Order Comment: Specimen Type: BLOOD SPECIMENOrdering Facility: [facility] Address:[address] [place], [place] [address]Performed By: #### 26486-3 ####[facility] LABIA [id number] [place], [place] [address]Vubmylhc mean volume (Bld) [Entitic vol]9.7 fLNormal9.0-12.7CKettering Health Miamisburg on above:Order Comment: Specimen Type: BLOOD SPECIMENOrdering Facility: [facility] Address:[address] [place] [address] Performed By: #### 33987-3 ####[facility] LABCLIA [id number] [place], [place] [address]Kmnzbqbtb (Bld) [#/Vol]215 10*3/oHShinnr280-380PdiokdjllMercy Health [facility]sburg Hospital on above:Order Comment: Specimen Type: BLOOD SPECIMENOrdering Facility: [facility] Address:[address] [place], [place] [address]Performed By: #### 16196-7 ####[facility] LABCLIA [id number] [place], [place] [address]QRL (Bld) [#/Vol]4.79 10*6/uLNormal4.20-6.00[facility] on above:Order Comment: Specimen Type: BLOOD SPECIMENOrdering Facility: [facility] Address:[address] [place], [place] [address]Performed By: #### 27000-9 ####[facility] LABCLIA [id number] [place], [place] [address]ZRG (Bld) [#/Vol]7.66 10*3/uLNormal3.70-11.00[facility] on above: Order Comment: Specimen Type: BLOOD SPECIMENOrdering Facility: [facility] Address:[address] [place], [place] [address]Performed By: #### 31511- 8 ####[facility] LABCLIA [id number] [place], [place] [address]CMU CBC W AUTO DIFF BLDon 80-22-5403Hleesdlts/100 WBC (Bld)0.4 %NOMS HealthcareF BASOPHILS # BLD AUTO0.03NINFNOMS HealthcareF DIFFERENTIAL METHOD BLDAutoNOMS HealthcareF EOSINOPHIL # BLD AUTO<0.03NINFNOOzarks Medical CenterF LYMPHOCYTES # BLD AUTO3.51NOMS [facility] HospitalF MONOCYTES # BLD AUTO 0.48NINFNOMS HealthcareF NEUTROPHILS # BLD AUTO3.58NOHannibal Regional Hospital NRBC # BLD AUTO<0.01NINFPike County Memorial HospitalF NRBC/100 WBC BLD-RTO0/100 WBCCitizens Memorial Healthcare CCF PLATELET # BLD [id number] Memorial Hospital PMV BLD AUTO9.7 fL9.0 - 12.7 fLPershing Memorial Hospital WBC # BLD AUTO7.66NOMercy hospital springfieldEosinophils/100 WBC (Bld)0.3 % Citizens Memorial HealthcareErythrocyte distribution width (RBC) [Ratio]14 %11.5 - 15.0 %[facility] Memorial HealthcareHematocrit (Bld) [Volume fraction]42 %39.0 - 51.0 %[facility] Hemoglobin (Bld) [Mass/Vol]14.6 g/dL13.0 - 17.0 g/dLCedar County Memorial Hospital GRANULOCYTES # BLD AUTO0.04NIMilan General Hospital GRANULOCYTES/LEUK NFR BLD AUTO 0.5 %[facility] HealthcareLymphocytes/100 WBC (Bld)45.8 %[facility]'sH (RBC) [Entitic mass]30.5 pg26.0 - 34.[address] John'sHC (RBC) [Mass/Vol]34.8 g/dL 30.5 - 36.0 g/dLMercy Hospital St. John'sV (RBC) [Entitic vol]87.7 fL80.0 - 100.0 fLCitizens Memorial HealthcareMonocytes/100 WBC (Bld)6.3 %[facility] HealthcareNeutrophils/100 WBC (Bld) 46.7 %[facility] Memorial HealthcareRBC (Bld) [#/Vol]4.79 10*6/uL4.20 - 6.00 m/uLCitizens Memorial HealthcareSpecimen Type: BLOOD SPECIMEN [facility] Address: [address] [place] [address] Original Ordering Provider: DELMY LARIOSMercy hospital springfieldKRIS Tipton 71-83-0966UEK [Mass/Vol]mg/LNormal<0.9CBethesda North Hospital Comment on above:Order Comment: Specimen Type: BLOOD SPECIMENOrdering Facility: [facility] Address:[address] [place] [address] Performed By: #### 1988-5 ####[facility] LABCLIA [id number] [address] Creatinine and Glomerular filtration rate.predicted panel (S/P/Bld)on 10-02-2024 Creatinine [Mass/Vol]1.28 mg/dLHigh0.73-1.22[facility] on above:Order Comment: Specimen Type: BLOOD SPECIMENOrdering Facility: [facility] Address:[address] [place], [place] [address]Performed By: #### 11975-5 ####[facility] LABIA [id number] [place], [place] [address]cBHBwk SerPlBld CKD-EPI 191400 mL/min/1.73m???Normal >=60[facility] on above:Order Comment: Specimen Type: BLOOD SPECIMENOrdering Facility: [facility] Address:[address] [place], [place] [address]Result Comment: Estimated Glomerular Filtration Rate (eGFR) is calculated using the 2020 CKD-EPI creatinine equation. This equation utilizes serum creatinine, sex, and age as parameters. The creatinine assay has traceable calibration to isotope dilution-mass spectrometry. Refer to KDIGO guidelines for clinical interpretation. In patients with unstable renal function, e.g. those with acute kidney injury, the eGFR may not accurately reflect actual GFR.Performed By: #### 49821-2 ####[facility] LABIA [id number] [place], [place] [address]BMW Westergren method (Bld) [Velocity]on 86-05-9603IKS (Bld) [Velocity]2 mm/hNormal0-15 [facility] on above:Order Comment: Specimen Type: BLOOD SPECIMENOrdering Facility: [facility] Address:[address] [place], [place] [address]Performed By: #### 4537-7 ####[facility] LABCLIA [id number] [address] STATES OF AMERICAUrate SerPl-mCncon 32-19-5374Abpox [Mass/Vol]12.9 mg/dLHigh4.0-8.1 [facility] HospitalCommclaren central [place] on above:Order Comment: Specimen Type: BLOOD SPECIMENOrdering Facility: [facility] Address:[address] [place], [place] [address]Rozqueqib By: #### 3084-1, 1920-8, 1742-6, 1751-7 ####[facility] LABCL[facility] [id number] [place], [place] [address]TAV CBC WITH AUTO DIFFon 48-33-4481ZSKTABPIS ABSOLUTE YKDA3JWIU HealthcareBasophils/100 WBC (Bld)0.2 %0.2 - 2.0 %[facility] Eosinophils/100 WBC (Bld)0.5 %Low0.9 - 7.0 %NOMS HealthcareErythrocyte distribution width (RBC) [Ratio]13 %11.0 - 15.0 %NOMS HealthcareHematocrit (Bld) [Volume fraction]40.4 %Low42.0 - 54.0 %NOMS HealthcareHemoglobin (Bld) [Mass/Vol]13.6 g/dLLow14.0 - 18.0 g/dLNOKY HealthcareIMMATURE GRANULOCYTES ABS AUTO0.02NOMS HealthcareImmature granulocytes/100 WBC (Bld)0.2 %0.0 - 0.5 %NOM HealthcareInterpretation and review of laboratory resultsAbnormalNOKY Healthcare LYMPHOCYTES ABSOLUTE AUTO3.1NOMS HealthcareLymphocytes/100 WBC (Bld)37.1 %20.5 - 60.0 %NOMSaint Francis Hospital & Health ServicesMCH (RBC) [Entitic mass]29.4 pg25.9 - 34.0 pgNOMercy hospital springfieldMCHC (RBC) [Mass/Vol]33.7 g/dL29.9 - 35.2 g/dLNOMercy hospital springfieldMCV (RBC) [Entitic vol]87.4 fL80.0 - 94.0 fLNOKY HealthcareMONOCYTES ABSOLUTE AUTO0.8NOMS HealthcareMonocytes/100 WBC (Bld)9.6 %1.7 - 12.0 %NOMS HealthcareNEUTROPHILS ABSOLUTE AUTO4.4NOMS HealthcareNeutrophils/100 WBC (Bld)52.4 %43.0 - 75.0 %NOMS HealthcarePlatelet mean volume (Bld) [Entitic vol]10.5 fL9.5 - 13.5 fLNOMS HealthcareTBH EO #0NOMS HealthcareTBH URM110DQPP HealthcareTBH RBC4.62LowNOMS HealthcareTBH WBC8.4NOMS HealthcareCLINISYNCNOMS HealthcareCNOVon 42-49-7344NXXM Office Visit (DANETTEUAV) CARLOSNICK ARAGON ([id number]) 1990 M Date Time Provider Department 01/04/24 8:20 AM DELMY BOYLE During your visit today, we recorded the following information about you: Pulse Respiration Blood pressure Weight 84/minute 18/minute 110/77 107.4 kg Height 1.88 m Delmy Boyle MD 01/04/2024 8:58 AM Signed DX: chronic tophaceous gout, 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 Polyarthritis with several nodules mainly [...] arthritic flares once every 4 [address] Jaime in [place] who did diagnostic knee aspiration which according to patient was positive for uric acid crystals. Treated with steroids and continued allopurinol. He has not seen Dr. Jaime since 2014. In 2014, he was hospitalized in [place] for acute polyarthritis. Saw trim installer while in hospital who told him that he possibly had RA. Discharged on steroids. His PCP switched him from allopurinol to Uloric Jan 2017. He also takes colchicine prn. No reduction in frequency or severity of his joint flares with Uloric. In 2017, he has been hospitalized 7-8 times for acute joint flares. Each time he is treated with steroids. Hospitalized at [facility] Apr 2017 for acute flare of [...] shoulder surgery by Dr. Tc Coffey at [facility]. No post op complications. Was in PT [...] of gout 06/2023. He was seen in [facility] for gout flare. Given steroid injection and [...] Coughing up blood Nega (more content not included)...NormalRegency Hospital Toledoon 99-12-1928VXNTRmjprdcju (DANETTEUAV) NICK WRAY ([id number]) 1990 M Date Time Provider Department 01/04/24 DELMY BOYLE During your visit today, we recorded the following information about you: Camilla Holt LPN 01/04/2024 1:23 PM Signed Nick Wray (Munoz: [id number]) [facility] Rx #: [id number] Need Help? Call us at Outcome Denied [...] of therapy with generic Lidocaine patch. The [facility] Policy for Medical Necessity as posted on the [facility] website and [facility] Preferred Drug List criteria were reviewed and [...] through the community. Drug ZTlido 1.8% patches [facility] cloud logo Form [place] Medicaid Aircuityalleghany health [employer] Electronic PA Form (2017 [facility]) Original Claim Info 75 Camilla Holt LPN [...] hours. Encounter Status:Closed by CAMILLA HOLT on 01/04/24NoRiverside Methodist [facility] Panel Informationon 66-28-0269Sqpaqzmcp Study observation (narrative)[facility] HospitalXR FOOT 3V AP/LAT/OBL BILon 12-77-0678JG FOOT 3V AP/LAT/OBL RAMIRO* * *Final Report* * * DATE OF [...] progressed from 05/04/2017 Mild right foot osteoarthritis. [employer]: ADELA Transcribe Date/Time: Jan 04 2024 10:13A Dictated by : UMA ROGERS MD This examination was interpreted and the report reviewed and electronically signed by: CHELSEA REEVES MD on Jan 04 2024 3:12PM EST [id number]. Vincent's Medical CenterXR Foot - bilateral AP and Lateral and obliqueon 01-04-2024* * *Final Report* * * DATE OF [...] acute fracture or dislocation. Mild pes planus. [facility] RADIOLOGYProvider, [facility] [place] - 01/04/2024 * * *Final Report* * [...] progressed from 05/04/2017 Mild right foot osteoarthritis. [employer]: ADELA Transcribe Date/Time: Jan 04 2024 10:13A Dictated by : UMA ROGERS MD This examination was interpreted and the report reviewed and electronically signed by: CHELSEA REEVES MD on Jan 04 2024 3:12PM [facility] SystemXR KNEE 4V AP/PA/LAT/MERCH BILon 21-23-5528RS KNEE 4V AP/PA/LAT/MERCH RAMIRO* * *Final Report* * * DATE OF [...] similar to 05/04/2017. Mild right knee osteoarthritis. [employer]: ADELA Transcribe Date/Time: Jan 04 2024 12:48P Dictated by : CHELSEA REEVES MD This examination was interpreted and the report reviewed and electronically signed by: CHELSEA REEVES MD on Jan 04 2024 1:21PM EST [id number]. 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 Mild right knee osteoarthritis. [employer]: ADELA Transcribe Date/Time: Jan 04 2024 12:48P Dictated by : CHELSEA REEVES MD This examination was interpreted and the report reviewed and electronically signed by: CHELSEA REEVES MD on Jan 04 2024 1:21PM [facility]* * *Final Report* * * DATE OF [...] findings are similar when compared to 05/04/2017. [facility]IOLOGYProvider, [facility] [place] - 01/04/2024 * * *Final Report* * [...] similar to 05/04/2017. Mild right knee osteoarthritis. [employer]: PSCB Transcribe Date/Time: Jan 04 2024 12:48P Dictated by : CHELSEA REEVES MD This examination was interpreted and the report reviewed and electronically signed by: CHELSEA REEVES MD on Jan 04 2024 1:21PM EST [facility] HospitalXR Knee - bilateral 4 ViewsOrdered By: Ccf Provider on 10-90-9911Aifgymrmo ClinicALT [facility] Hospitall-cCnwashington county memorial hospital 31-73-3436VPK [Catalytic activity/Vol]20 U/ARybejm66-42HcpmflcqgMercy Health [facility] Hospital on above:Order Comment: Specimen Type: BLOOD SPECIMEN [facility] Address: [address] [place], [place] [address]Performed By: #### 4537-7 #### [facility] CLIA [id number] [address] [place] [address] [facility]ABETH HOSPITALAST SerPl-cCncon 12-30-2023 AST [Catalytic activity/Vol]18 U/LZxwovx07-84MyvpjflvuMercy Health [facility]sburg Hospital on above:Order Comment: Specimen Type: BLOOD SPECIMENOrdering Facility: [facility] Address:[address] [place] [address] Performed By: #### 1751-7, 3084-1, 1920-8, 1742-6 ####[facility] LABCLIA [id number] [place], [place] [address]Wshqylp SerPl-mCncon 11-52-3757Pbfgslz [Mass/Vol]4.1 g/dLNormal3.9-4.9CKettering Health Miamisburg on above:Order Comment: Specimen Type: BLOOD SPECIMEN [facility] Address: [address] [place], [place] [address]Performed By: #### 4537-7 #### [facility] CLIA [id number] [address] [place] [address] STATES OF AMERICACB W Auto Differential panel (Bld)on 63-08-5043Yfcnewypx (Bld) [#/Vol]0.03 10*3/uLNormal<0.11CKettering Health Miamisburg on above:Order Comment: Specimen Type: BLOOD SPECIMENOrdering Facility: [facility] Address:[address] [place], [place] [address]Performed By: #### 61068-7 ####[facility] LABCLIA [id number] [place], [place] [address]Cumedgctz/100 WBC (Bld)0.6 %NormalMercy Health Perrysburg Hospital on above:Order Comment: Specimen Type: BLOOD SPECIMENOrdering Facility: [facility] Address:[address] [place], [place] [address]Performed By: #### 83203-2 ####[facility] LABCLIA [id number] [place], [place] [address]Kacverbzijfp cell count method Nom (Bld)AutoNormal [facility] on above:Order Comment: Specimen Type: BLOOD SPECIMENOrdering Facility: [facility] Address:[address] [place], [place] [address]Performed By: #### 27357-8 ####[facility] LABIA [id number] [place], [place] [address]Tlfuifscuxn (Bld) [#/Vol]0.06 10*3/uLNormal<0.46[facility] on above: Order Comment: Specimen Type: BLOOD SPECIMENOrdering Facility: [facility] Address:[address] [place], [place] [address]Performed By: #### 58382- 8 ####[facility] LABIA [id number] [place], [place] [address]Epqabojaopc/100 WBC (Bld)1.3 %NormalMercy Health Perrysburg Hospital on above:Order Comment: Specimen Type: BLOOD SPECIMENOrdering Facility: [facility] Address:[address] [place], [place] [address]Performed By: #### 70960-2 ####[facility] LABIA [id number] [place], [place] [address]Jtrwgspctfm distribution width (RBC) [Ratio]13.2 %Dlslhi45.5-15.0[facility] on above: Order Comment: Specimen Type: BLOOD SPECIMENOrdering Facility: [facility] Address:[address] [place], [place] [address]Performed By: #### 20917- 8 ####[facility] LABIA [id number] [place], [place] [address]Qhdeufbfrb (Bld) [Volume fraction]40.9 %Qonmrq42.0-51.0 [facility] on above:Order Comment: Specimen Type: BLOOD SPECIMENOrdering Facility: [facility] Address:[address] [place], [place] [address]Performed By: #### 41422-4 ####[facility] LABIA [id number] [place], [place] [address]Rrzjiskqob (Bld) [Mass/Vol]14.3 g/iVPlldee64.0-17.0[facility] on above: Order Comment: Specimen Type: BLOOD SPECIMENOrdering Facility: [facility] Address:[address] [place], [place] [address]Performed By: #### 98918- 8 ####[facility] LABIA [id number] [place], [place] [address]Pmlbhiqp granulocytes (Bld) [#/Vol]10*3/uLNormal<0.10 [facility] on above:Order Comment: Specimen Type: BLOOD SPECIMENOrdering Facility: [facility] Address:[address] [place], [place] [address]Performed By: #### 61410-6 ####[facility] LABIA [id number] [place], [place] [address]Donotedg granulocytes/100 WBC (Bld)0.2 %NormalMercy Health Perrysburg Hospital on above: Order Comment: Specimen Type: BLOOD SPECIMENOrdering Facility: [facility] Address:[address] [place], [place] [address]Performed By: #### 29323- 8 ####[facility] LABIA [id number] [place], [place] [address]Hckvodzwfdr (Bld) [#/Vol]1.71 10*3/uLNormal1.00-4.00 [facility] on above:Order Comment: Specimen Type: BLOOD SPECIMENOrdering Facility: [facility] Address:[address] [place], [place] [address]Performed By: #### 53648-6 ####[facility] LABCLIA [id number] [place], [place] [address]Htmywddvanv/100 WBC (Bld)36.6 %NormalMercy Health Perrysburg Hospital on above:Order Comment: Specimen Type: BLOOD SPECIMENOrdering Facility: [facility] Address:[address] [place], [place] [address]Performed By: #### 45566-8 ####[facility] LABCLIA [id number] [place], [place] [address]NTC (RBC) [Entitic mass]29.9 ygUlfeew14.0-34.0[facility] on above:Order Comment: Specimen Type: BLOOD SPECIMENOrdering Facility: [facility] Address:[address] [place], [place] [address]Performed By: #### 41814-7 ####[facility] LABCLIA [id number] [place], [place] [address]QQNY (RBC) [Mass/Vol]35.0 g/kOIpefdh36.5-36.0[facility] on above: Order Comment: Specimen Type: BLOOD SPECIMENOrdering Facility: [facility] Address:[address] [place], [place] [address]Performed By: #### 20866- 8 ####[facility] LABCLIA [id number] [place], [place] [address]MMC (RBC) [Entitic vol]85.4 bIRwrjwh24.0-100.0[facility] on above:Order Comment: Specimen Type: BLOOD SPECIMENOrdering Facility: [facility] Address:[address] [place], [place] [address]Performed By: #### 06498-2 ####[facility] LABCLIA [id number] [place], [place] [address]Phjhspvcc (Bld) [#/Vol]0.28 10*3/uLNormal<0.87[facility] on above:Order Comment: Specimen Type: BLOOD SPECIMENOrdering Facility: [facility] Address:[address] [place], [place] [address]Performed By: #### [id number]- [id number] ####[facility] LABIA [id number] [place], [place] [address]Xdjgoaswy/100 WBC (Bld)6.0 %NormalMercy Health [facility] on above:Order Comment: Specimen Type: BLOOD SPECIMENOrdering Facility: [facility] Address:[address] [place], [place] [address]Performed By: #### [id number] ####[facility] LABIA [id number] [place], [place] [address]Yfkaqacfjqy (Bld) [#/Vol]2.58 10*3/uLNormal1.45-7.50[facility] on above:Order Comment: Specimen Type: BLOOD SPECIMENOrdering Facility: [facility] Address:[address] [place], [place] [address]Performed By: #### [id number] ####[facility] LABIA [id number] [place], [place] [address]Mfwfwdatvdq/100 WBC (Bld)55.3 %NormalMercy Health [facility] Hospital on above:Order Comment: Specimen Type: BLOOD SPECIMENOrdering Facility: [facility] Address:[address] [place], [place] [address]Performed By: #### [id number] ####[facility] LABIA [id number] [place], [place] [address]Oeqlwtkfp RBC (Bld) [#/Vol] 10*3/uLNormal<0.01[facility] on above:Order Comment: Specimen Type: BLOOD SPECIMENOrdering Facility: [facility] Address:[address] [place], [place] [address]Performed By: #### [id number] ####[facility] LABCLIA [id number] [place], [place] [address]Fabqjrhcv RBC/100 WBC (Bld) [Ratio]0.0 /100 WBCNormal [facility] on above:Order Comment: Specimen Type: BLOOD SPECIMENOrdering Facility: [facility] Address:[address] [place], [place] [address]Performed By: #### 68827-5 ####[facility] LABCLIA [id number] [place], [place] [address]Zfhcfitc mean volume (Bld) [Entitic vol]10.4 fLNormal9.0-12.7CKettering Health Miamisburg on above:Order Comment: Specimen Type: BLOOD SPECIMENOrdering Facility: [facility] Address:[address] [place] [address] Performed By: #### 27367-7 ####[facility] LABCLIA [id number] [place], [place] [address]Msqkboqtd (Bld) [#/Vol]277 10*3/lMKeajjd017-465YakbudepmMercy Health [facility] on above:Order Comment: Specimen Type: BLOOD SPECIMENOrdering Facility: [facility] Address:[address] [place], [place] [address]Performed By: #### 93872-9 ####[facility] LABCLIA [id number] [place], [place] [address]SRW (Bld) [#/Vol]4.79 10*6/uLNormal4.20-6.00[facility] on above:Order Comment: Specimen Type: BLOOD SPECIMENOrdering Facility: [facility] Address:[address] [place], [place] [address]Performed By: #### 00091-0 ####[facility] LABCLIA [id number] [place], [place] [address]LUS (Bld) [#/Vol]4.67 10*3/uLNormal3.70-11.00[facility] on above: Order Comment: Specimen Type: BLOOD SPECIMENOrdering Facility: [facility] Address:[address] [place], [place] [address]Performed By: #### 15602- 8 ####[facility]ITALNEG[facility] LABCLIA [id number] [place], [place] [address]GKK CBC W AUTO DIFF BLDon 71-83-5253Ogugmsmhk/100 WBC (Bld)0.6 %[facility] BASOPHILS # BLD AUTO0.03NIBaptist Memorial Hospital DIFFERENTIAL METHOD BLDAutoNOMCarondelet Health EOSINOPHIL # BLD AUTO0.06NIBaptist Memorial Hospital LYMPHOCYTES # BLD AUTO1.71NOHannibal Regional Hospital MONOCYTES # BLD AUTO 0.28NIBaptist [facility] Hospital NEUTROPHILS # BLD AUTO2.58NOHannibal Regional Hospital NRBC # BLD AUTO<0.01NIBaptist Memorial Hospital NRBC/100 WBC BLD-RTO0/100 WBCLiberty Hospital PLATELET # BLD AGRA812FWPOPershing Memorial Hospital PMV BLD AUTO10.4 fL9.0 - 12.7 fL [facility] WBC # BLD AUTO4.67NOMercy hospital springfieldEosinophils/100 WBC (Bld)1.3 %[facility] Memorial HealthcareErythrocyte distribution width (RBC) [Ratio]13.2 %11.5 - 15.0 % [facility] HealthcareHematocrit (Bld) [Volume fraction]40.9 %39.0 - 51.0 %[facility] HealthcareHemoglobin (Bld) [Mass/Vol]14.3 g/dL13.0 - 17.0 g/dLCedar County Memorial Hospital GRANULOCYTES # BLD AUTO<0.03NIMilan General Hospital GRANULOCYTES/LEUK NFR BLD AUTO0.2 %[facility] HealthcareLymphocytes/100 WBC (Bld)36.6 %[facility] John'sH (RBC) [Entitic mass]29.9 pg26.0 - 34.0 pgNOMS HealthcareMCHC (RBC) [Mass/Vol]35 g/dL 30.5 - 36.0 g/dLMercy Hospital St. John'sV (RBC) [Entitic vol]85.4 fL80.0 - 100.0 fLCitizens Memorial HealthcareMonocytes/100 WBC (Bld)6 %[facility] HealthcareNeutrophils/100 WBC (Bld)55.3 %[facility] HealthcareRBC (Bld) [#/Vol]4.79 10*6/uL4.20 - 6.00 m/uLSTEWARD HEALTH CARE SYSTEM Healthcare Specimen Type: BLOOD SPECIMEN [facility] Address: [address] [place] [address] Original Ordering Provider: DELMY LARIOSMercy hospital springfieldZACHARY Hernandez 73-98-1570Blgmutdjzi [Mass/Vol]1.32 mg/dLHigh0.73-1.22[facility] on above:Order Comment: Specimen Type: BLOOD SPECIMENOrdering Facility: [facility] Address:[address] [place], [place] [address]Performed By: #### CRET1 ####[facility] LABCLIA [id number] [place], [place] [address]Ssqkcrjymp and Glomerular filtration rate.predicted panel (S/P/Bld)73 mL/min/1.73m???Normal>=60[facility] on above:Order Comment: Specimen Type: BLOOD SPECIMENOrdering Facility: [facility] Address:[address] [place], [place] [address]Result Comment: Estimated Glomerular Filtration Rate (eGFR) is calculated using the 2020 CKD-EPI creatinine equation. This equation utilizes serum creatinine, sex, and age as parameters. The creatinine assay has traceable calibration to isotope dilution-mass spectrometry. Refer to KDIGO guidelines for clinical interpretation. In patients with unstable renal function, e.g. those with acute kidney injury, the eGFR may not accurately reflect actual GFR.Performed By: #### CRET1 ####[facility] LABCLIA [id number] [place], [place] [address]CFF [facility] on 63-18-4185UFX [Mass/Vol]mg/LNormal<0.9CBethesda North HospitalComment on above:Order Comment: Specimen Type: BLOOD SPECIMENOrdering Facility: [facility] Address:[address] [place], [place] [address]Performed By: #### 1988-5 ####[facility] LABCLIA [id number] [facility] HOSPITALUIARNEAUHJU38LXZHJEQRQ, [place] [address] [place] AMERICAESR Westergren method (Bld) [Velocity]on 23-41-4902DRH (Bld) [Velocity]15 mm/hNormal0-15[facility] Mentor HospitalComment on above:Order Comment: Specimen Type: BLOOD SPECIMEN [facility] Address: [address] [place], [place] [address]Performed By: #### 4537-7 #### [facility] CLIA [id number] [address] [place] [address] [id number] [place] [address] [place] OF AMERICAUrate SerPl-mCncon 22-80-4954Ziqcw [Mass/Vol]4.7 mg/dLNormal4.0-8.1CBethesda North Hospital Comment on above:Order Comment: Specimen Type: BLOOD SPECIMENOrdering Facility: [facility] Address:[address] [place] [address] Performed By: #### 1751-7, 3084-1, 1920-8, 1742-6 ####[facility] LABCLIA [id number] [place], [place] [address]Fpcuz Panelon 63-66-5449Txhafjsodgb [Mass/Vol]155 mg/cZZxxiiv740-106Mmp [facility] Physician GroupComment on above:Result Comment: Chol less than 200 mg/dl low risk Chol 201-239 mg/dl borderline risk Chol 240 mg/dl and greater high riskPerformed By: #### LIPID, [id number], TSH3 wRFLX #### [facility] [address] [place] [address] USACholesterol in HDL [Mass/Vol]46 mg/uXLvieer88-10Whs [facility] Physician GroupComment on above:Result Comment: HDL CHOL ATP-III CLASSIFICATION Cardiovascular Risk HDL > or equal to 60 mg/dL LOW HDL < 40 mg/dL HIGHPerformed By: #### LIPID, [id number], TSH3 wRFLX #### [facility] [address] [place] [address] USACholesterol.total/Cholesterol in HDL [Mass ratio]3.4 {ratio}Normal<5.0The [facility] Physician GroupComment on above:Performed By: #### LIPID, [id number], TSH3 wRFLX #### [facility] [address] [place] [address] USALDL Cholesterol,Sslqoaxsgo16 mg/dLNormal0-100The [facility] Physician GroupComment on above:Result Comment: LDL ATP III CLASSIFICATION LDL less than 100 mg/dL Optimal LDL 100-129 mg/dL Near or above optimal LDL 130-159 mg/dL Borderline high LDL 160-189 mg/dL High LDL greater than 189 mg/dL Very highPerformed By: #### LIPID, [id number], TSH3 wRFLX #### [facility] [address] [place] [address] USATriglyceride w/Nnpfba44 mg/dLNormal0-149The [facility] Physician GroupComment on above:Result Comment: TRIG ATP III CLASSIFICATION TRIG less than 150 mg/dL Normal TRIG 150-199 mg/dL Borderline high TRIG 200-500 mg/dL High TRIG greater than 500 mg/dL Very high Standard traceable to the Center for Disease Conrtrol and Prevention (CDC) test method.Performed By: #### LIPID, [id number], TSH3 wRFLX #### [facility] [address] [place] [address] USAVLDL QMDDPKYXYUP57 mg/dLNormalThe [facility] Physician GroupComment on above:Performed By: #### LIPID, [id number], TSH3 wRFLX #### [facility] [address] [place] [address] USAThyroid Stim Hormone w/Rflxon 19-26-6261Qzptwmq Stim Hormone w/Rflx0.91 u[iU]/mLNormal0.45-5.33The [facility] Physician GroupComment on above:Performed By: #### LIPID, [id number], TSH3 wRFLX #### [facility] [address] [place] [address] USAVitamin D 25 Hydroxy Totalon 91-63-4541Jukkizq D 25 Hydroxy Total26.8 ng/jNSqw69-823Wvh [facility] Physician GroupComment on above: Result Comment: VITAMIN D STATUS 25(OH)VITAMIN D RANGE (ng/mL) Deficient <20 Insufficient 20 to <30 Sufficient 30 to 100 Reference: Harpal MF,[place] SENIOR, Dayron WAN, et al. Evaluation,treatment, and prevention of vitamin D deficiency; an Endocrine Society clinical practice guideline. JCEM. 2010; 96(7):1911-30. PERFORMED BY: [place] [id number] PATHOLOGIST BLACK MILL OPERATOR MARIO PEDERSON M.D.Performed By: #### LIPID, [id number], TSH3 wRFLX #### [place] [id number] USAConsent for Treatmenton 49-44-9803Bnfswjn for Treatment [id number]#1.00[facility], IncDischarge Instructionson 09-52-4208Yobrqkqvr Instructions [id number]#1.00TIFUniversity Hospitals Portage [facility] Center Clinical Summaryon [id number] Clinical Summary [address] [address] ED Clinical Summary Person Information Name: OSEI WRAYLamar Brink [place] Age: 32 Years : 1990 Sex: Male Language: Swedish PCP: LEYDI ACEVES MD Marital Status: MRN: [...] 02/24/2023 15:31:03 02/24/2023 15:31:03 02/24/2023 15:31:03 ADDRESS: [address] [place], [place] [address]Ambrosio [facility] [id number] PHYS DOC NOTES: MEDICAL INFORMATION: Prescriptions Given: New Medications [id number], [address], [place] [id number], [phone] predniSONE (predniSONE 10 mg Tab) 1 Dose [...] times a day as needed for constipation. Refills:0. ibuprofen (ibuprofen 600 mg Tab) 1 Tablets By Mouth every 8 hours as needed as needed for pain. with food or milk. Refills: 0. quetiapine (quetiapine 25 mg Tab) 1 Tablets By Mouth every day. tramadol (tramadol 50 mg oral tablet) 1 Tablets By Mouth every 4 hours as needed for pain. PATIENT EDUCATION INFORMATION: Instructions: Knee Effusion, Tfiq-op-Enuj Follow up: With: Address: When: LEYDI ACEVES [address] [place] [address] Business (1) In 3 days 02/27/2023 Comments: Take the steroids once daily as prescribed to completed the course. Please follow-up with your primary care doctor in the next 2 to 3 days for further evaluation management. Please return to ED for any worsening symptoms. Follow-up with your orthopedic doctor for further evaluation management. DIAGNOSIS: Swelling of joint, knee, rightNormalFisher Ced Medical CenterED Note-Physician on 76-50-8052HQ Note-PhysicianBasic Information Time Seen: Ladi Huber DO Vahid 02/24/2023 14:07 Chief Complaint Pt had knee surgery for scope to clean out gout in [place] by a doctor out of [place]. Pt. states has had fluiding building up in R knee since Wednesday. Called ortho doc who did surgery and told to [facility] to get fluid drained. Attempted to go to [place] History of Present Illness Patient is a 30-year-old male with past medical history of rheumatoid arthritis, gout presenting [facility] ED for evaluation of swelling to the right knee. Patient states he had a scope for gout in [place] on Wednesday, since then has been having increasing swelling. Patient is noted some mild warmth, denies fevers, chills, nausea or vomiting. Patient states he has an appointment with the surgeon for f ollow-up on March 08. Review of Systems A [...] knee there is mild edema noted to theright knee no significant pain with movement Neurologic: Alert and oriented, speech clear Skin: No rashes or lesions Psych: Appropriate mood and behavior Medical Decision Making MEDICAL DECISION MAKING Number and Complexity of Problems Differential Diagnosis: [] [facility] Data External documents reviewed: [] My [...] not have exquisite pain with motion. Discussed follow-upwith the patient's orthopedic surgeon will start him [...] Once, Stop date 02/24/23 14:19:00 EST, STAT, Startdate 02/24/23 14:19:00 EST, 02/24/23 14:19:00 EST predniSONE, 0 = 1 -, Oral, As Directed, Take 5 tabs by mouth daily x5 days, 4 daily x5 days, 3 daily x5 days, 2 daily x5 days, then 1 tab daily x5 days., # 75 tab(s), Refills(s) 0, Pharmacy: [facility] #[id number], 187, cm, 02/24/23 12:43:00 EST, Height/Length Dosing... Disposition Plan Discharge Prescription List Prescriptions predniSONE 10 mg Tab, 1 -, Oral, As Directed Follow-up With When Contact Information LEYDI ACEVES In 3 days 02/27/2023 EST [address] [place] [address] Business (1) Additional Instructions: Take the steroids once daily as prescribed to completed the course. Pleasefollow-up with your primary care doctor in the next 2 to 3 days for further evaluation management. Please return to ED for any worsening symptoms. Follow-up with your orthopedic doctor for further evaluation management. Patient Education Knee Effusion, Mgts-ub-Uzoq Problem List/Past Medical History Ongoing No qualifying [...] mcg= 1 tab(s) (more content not included)... [facility] CampusComment on above:Result Comment: Electronically Signed By: Ladi Huber DO\.br\Date and Time Signed: 02/24/23 14:41 ESTED Patient Education Noteon [id number] Patient Education NoteOrthopedics Knee Effusion Knee effusion means that you have extra fluid in your knee. This can cause pain and swelling. Your knee may be more difficult to bend and move. Common causes of knee effusion are: ? Arthritis. ? Infection. ? Injury. ? Autoimmune disease. This means that your body's defense system (immune system) mistakenly attackshealthy body tissues. Follow these instructions at home: [...] your injured leg to support your body weightuntil your doctor says that you can. ? Do exercises as told by your doctor. General instructions ? Take knbd-pql-uhauahp and prescription medicines only as told by your doctor. ? Do not smoke or use any products that contain nicotine or tobacco. If you need help quitting, askyour doctor. ? Wear an elastic bandage or [...] This can cause pain and swelling and canmake it hard to bend and move your knee. ? Take cxlu-tok-thuczew and prescription medicines only as told by your doctor. ? If you have a brace or an immobilizer, wear it as told by your doctor. This information is not intended to replace advice given to you by your health care provider. Make sure you discuss any questions you have with your health care provider. Document Revised: 10/16/2020 Document Reviewed: 10/16/2020 [employer] Patient Education ? 2022 [employer] ED Patient Summaryon [id number] Patient Summary [place] [id number] Patient Discharge Instructions Person Information Name: NICK WRAY Age: 32 Years Arrival Date: 02/24/2023 12:18:34 Discharge Diagnosis: Swelling of joint, knee, right Primary Care Physician: LEYDI ACEVES MD Provider Information Primary Provider: Ladi Huber DO Advanced Principal Strategist:None The exam and treatment you received in the Emergency Department were for an urgent problem and are not intended as complete care. It is important that you follow up with a doctor, nurse practitioner,or physician?s care management assistant for ongoing care. If your symptoms [...] Follow-up Instructions: With: Address: When: LEYDI ACEVES [address] [place] [id number] [facility] (1) In 3 days 02/27/2023 [...] participating provider. Patient Education Materials: Knee Effusion, Tgyv-um-Rmvp A MESSAGE TO ALL PATIENTS REGARDING OPIOIDS PRESCRIPTION OPIOIDS: WHAT YOU NEED TO KNOW Prescription opioids can be used to help relieve zqknppff-lw-wlzorz pain and are often prescribed following a [...] and have fewer risks and side effects. Optionsmay include: ? Pain relievers such as acetaminophen, [...] unused prescription opioids: Find your community drug take- back program or yourpharmMealnut mail-back program, or flush them down the toilet, following guidance from the Food and Drug Administration (www.fd (more content not included)...[facility] CampusUmu Elizabethon 02-23-2023 Crystals,FluidPositiveAbnoOhioHealth Riverside Methodist HospitalComment on above:Result Comment: FEW INTRACELLULAR AND MANY EXTRACELLULAR URIC ACID CRYSTALSPerformed By: #### FLCRYS #### [facility] [address] [place] [address] Hhas: Krish Abdi MD [facility] [address] [place], [place] [id number] Hhas: Lauri Godoy MD #### FLDCT #### [facility] [address] [place], [place] [id number] Hhas: Lauri Godoy MDPathologist Review:ELECTRONICALLY SIGNED. LAURI GODOY MDJ.W. Ruby Memorial HospitalComment on above:Performed By: #### FLCRYS #### [facility] [address] [place] [address] Hhas: Krish Abdi MD [facility] [address] [facility] Hospitalpatito [place], [place] [id number] Hhas: Lauri Godoy MD #### FLDCT #### [facility] [address] [place], [place] [id number] Hhas: Lauri Godoy MDFluid Cell Count and Diffon 02-19-2023 Basophils/100 WBC (Bld)0 %Cazbvq2JnprpKettering Health TroyComment on above: Performed By: #### FLCRYS #### [facility] [address] [place] [address] Hhas: Krish Abdi MD [facility] [address] [place] [address] Hhas: Lauri Godoy MD #### FLDCT #### [facility] [address] [place] [address] Hhas: Lauri Godoy MDEosinophils/100 WBC (Bld)0 %Epoxzd8KjrqqKettering Health TroyComment on above:Performed By: #### FLCRYS #### [facility] [address] [place] [address] Hhas: Krish Abdi MD [facility] [address] [place] [address] Hhas: Lauri Godoy MD #### FLDCT #### [facility] [address] [place] [address] Hhas: Lauri Godoy MDLymphocytes/100 WBC (Bld)10 %J.W. Ruby Memorial HospitalComment on above:Performed By: #### FLCRYS #### [facility] [address] [place] [address] Hhas: Krish Abdi MD [facility] [address] [place] [address] Hhas: Lauri Godoy MD #### FLDCT #### [facility] [address] [place] [address] Hhas: ENZO Gutiérrezono/Macrophage0 %[facility] Comment on above:Performed By: #### FLCRYS #### [facility] [address] [place] [address] Hhas: Krish Abdi MD [facility] [address] [place] [address] Hhas: Lauri Godoy MD #### FLDCT #### [facility] [address] [place] [address] Hhas: Lauri Godoy MDNeutrophils/100 WBC (Bld)90 %J.W. Ruby Memorial HospitalComment on above:Performed By: #### FLCRYS #### [facility] [address] [place] [address] Hhas: Krish Abdi MD [facility] [address] [place] [address] Hhas: Lauri Godoy MD #### FLDCT #### [facility] [address] [place] [address] Hhas: HERACLIO GutiérrezBC (Bld) [#/Vol]0.19326 10*6/[facility] on above:Performed By: #### FLCRYS #### [facility] [address] [place] [address] Hhas: Krish Abdi MD [facility] [address] [place] [address] Hhas: Lauri Godoy MD #### FLDCT #### [facility] [address] [place] [address] Hhas: Lauri Godoy MDWBC (Bld) [#/Vol]9.96 10*3/[facility] on above:Performed By: #### FLCRYS #### [facility] [address] [place] [address] Hhas: Krish Abdi MD [facility] [address] [place] [address] Hhas: Lauri Godoy MD #### FLDCT #### [facility] [address] [place] [address] Hhas: Lauri Godoy MDAvirginia mason health system ([facility] Comment on above:Performed By: #### FLCRYS #### [facility] [address] [place] [address] Hhas: Krish Abdi MD [facility] [address] [place] [address] Hhas: Lauri Godoy MD #### FLDCT #### [facility] [address] [place] [address] Hhas: PITO Gutiérrezwashington university medical center (U)[facility] Comment on above:Performed By: #### FLCRYS #### [facility] [address] [place] [address] Hhas: Krish Abdi MD [facility] [address] [place] [address] Hhas: Lauri Godoy MD #### FLDCT #### [facility] [address] [place] [address] Hhas: Lauri Godoy MDType of Specimen.[facility] Comment on above:Performed By: #### FLCRYS #### [facility] [address] [place] [address] Hhas: Krish Abdi MD [facility] [address] [place] [address] Hhas: Lauri Godoy MD #### FLDCT #### [facility] [address] [place] [address] Hhas: Lauri Godoy [facility] AUTO DIFFon [id number] #0.0 103/ulNormal 0.0-0.1The [facility] Orrville Hospitalment on above:Performed By: #### CBC #### [facility] [address] [place] [address] [address] Nilay GibbsBasophils/100 WBC (Bld)0.2 %Normal0.2-2.0[facility] Comment on above:Performed By: #### CBC #### [facility] [address] [place] [address] [address] Nilay Wong #0.0 103/ulNormal0.0-0.7The [facility] CenterComment on above: Performed By: #### CBC #### [facility] [address] [place] [address] Dr. Nilay Talleyosinophils/100 WBC (Bld)0.3 %Critically low0.9-7.0The [facility] CenterComment on above:Performed By: #### CBC #### [facility] [address] [place] [address] Dr. Nilay Talleyrythrocyte distribution width (RBC) [Ratio]13.9 %Zkcfer01.0-15.0 [facility] Hospitalment on above:Performed By: #### CBC #### [facility] [address] [place] [address] Dr. Nilay GibbsHematocrit (Bld) [Volume fraction]39.8 %Critically low42.0-54.0 [facility] Hospitalment on above:Performed By: #### CBC #### [facility] [address] [place] [address] Dr. Nilay GibbsHemoglobin (Bld) [Mass/Vol]13.2 g/dLCritically low14.0-18.0[facility] County Hospitalment on above:Performed By: #### CBC #### [facility] [address] [place] [address] Dr. Nilay Ernst #0.04 10e3/ulCritically high0.00-0.03The [facility] Comment on above:Performed By: #### CBC #### [facility] [address] [place] [address] [address] Nilay Ernst %0.4 %Normal0.0-0.5The [facility] CenterComment on above: Performed By: #### CBC #### [facility] [address] [place] [address] [address] Nilay Ellsworth #1.8 103/ulNormal1.2-3.8The [facility] CenterComment on above:Performed By: #### CBC #### [facility] [address] [place] [address] Dr. Nilay Davishocytes/100 WBC (Bld)17.5 %Critically low20.5-60.0The [facility] CenterComment on above:Performed By: #### CBC #### [facility] [address] [place] [address] Dr. Nilay Colunga DIFF REQNONormalThe [facility] CenterComment on above: Performed By: #### CBC #### [facility] [address] [place] [address] Dr. Nilay Glasgow (RBC) [Entitic mass]29.3 mxVhocid62.9-34.0The [facility] CenterComment on above:Performed By: #### CBC #### [facility] [address] [place] [address] Dr. Nilay Hodges (RBC) [Mass/Vol]33.2 g/jTYkepoq54.9-35.2The [facility] CenterComment on above:Performed By: #### CBC #### [facility] [address] [place] [address] Dr. Nilay Hodges (RBC) [Entitic vol]88.4 qLLdhgam62.0-94.0The [facility] CenterComment on above:Performed By: #### CBC #### [facility] [address] [place] [address] Dr. Nilay Rendon #0.9 103/ulCritically high0.3-0.8The [facility] Comment on above:Performed By: #### CBC #### [facility] [address] [place] [address] Dr. Nilay Grahmaocytes/100 WBC (Bld)9.4 %Normal1.7-12.0The [facility] Comment on above:Performed By: #### CBC #### [facility] [address] [place] [address] Dr. Nilay Coulter #7.2 103/ulCritically high1.4-6.5The [facility] Comment on above:Performed By: #### CBC #### [facility] [address] [place] [address] Dr. Nilay Brownutrophils/100 WBC (Bld)72.2 %Wnteqe55.0-75.0The [facility] CenterComment on above:Performed By: #### CBC #### [facility] [address] [place] [address] Dr. Nilay GibbsPlatelet mean volume (Bld) [Entitic vol]9.6 fLNormal9.5-13.5The [facility] CenterComment on above:Performed By: #### CBC #### [facility] [address] [place] [address] Dr. Nilay GibbsPLT356 103/shCumqrt634-671Nie [facility] CenterComment on above: Performed By: #### CBC #### [facility] [address] [place] [address] Dr. Nilay GibbsRBC4.50 106/ulCritically low4.70-6.10The [facility] CenterComment on above:Performed By: #### CBC #### [facility] [address] [place] [address] Dr. Nilay GibbsWBC10.0 103/ulNormal4.0-11.0The [facility] CenterComment on above:Performed By: #### CBC #### [facility] [address] [place] [address] Dr. Nilay GibbsPROF CHEM 8 (BAS METB)on 00-89-3684Atzkp gap [Moles/Vol]12.4 mmol/LNormalThe [facility] CenterComment on above:Performed By: #### AMM #### [facility] [address] [place] [address] Dr. Nilay GibbsCalcium [Mass/Vol]9.4 mg/dLNormal8.5-10.1The [facility] Comment on above:Performed By: #### AMM #### [facility] [address] [address] [address] Nilay GibbsChloride [Moles/Vol]105 mmol/TZwynyh40-245Niu [facility] Comment on above:Performed By: #### AMM #### [facility] [address] [place] [address] Dr. Nilay GibbsCO2 [Moles/Vol]25.6 mmol/WMotrni21.0-32.0[facility] Comment on above:Performed By: #### AMM #### [facility] [address] [place] [address] Dr. Nilay GibbsCreatinine [Mass/Vol]1.18 mg/dLNormal0.70-1.30The [facility] CenterComment on above:Performed By: #### AMM #### [facility] [address] [place] [address] Dr. Nilay TalleyGFR-AF CYMRAES>60Normal>=60The [facility] CenterComment on above:Performed By: #### AMM #### [facility] [address] [place] [address] Dr. Nilay TalleyGFR-NON AF CYMRAES>60Normal>=60The [facility] CenterComment on above:Performed By: #### AMM #### [facility] [address] [place] [address] Dr. Nilay GibbsGlucose [Mass/Vol]125 mg/dLCritically tkgi10-775Koz [facility] CenterComment on above:Performed By: #### AMM #### [facility] [address] [place] [address] Dr. Nilay GibbsPotassium [Moles/Vol]4.3 mmol/LNormal3.5-5.1The [facility] Comment on above:Performed By: #### AMM #### [facility] [address] [place] [address] Dr. Nilay Agostodium [Moles/Vol]139 mmol/VMpevtn336-892Hpj [facility] Comment on above:Performed By: #### AMM #### [facility] [address] [place] [address] Dr. Nilay Faye nitrogen [Mass/Vol]15.0 mg/dLNormal7.0-18.0The [facility] CenterComment on above:Performed By: #### AMM #### [facility] [address] [place] [address] Dr. Nilay Faye nitrogen/Creatinine [Mass ratio]12.7 mg/mgNormalThe [facility] CenterComment on above:Performed By: #### AMM #### [facility] [address] [place] [address] Dr. Nilay Hodges AUTO DIFFon 09-69-1671RBOS #0.0 103/ulNormal0.0-0.1The [facility] CenterComment on above:Performed By: #### AMM #### [facility] [address] [place] [address] Dr. Nilay GibbsBasophils/100 WBC (Bld)0.2 %Normal0.2-2.0The [facility] Comment on above:Performed By: #### AMM #### [facility] [address] [place] [address] Dr. Nilay Wong #0.0 103/ulNormal0.0-0.7The [facility] CenterComment on above: Performed By: #### AMM #### [facility] [address] [place] [address] Dr. Nilay Talleyosinophils/100 WBC (Bld)0.3 %Critically low0.9-7.0The [facility] CenterComment on above:Performed By: #### AMM #### [facility] [address] [place] [address] Dr. Nilay Talleyrythrocyte distribution width (RBC) [Ratio]14.3 %Bwxwyj89.0-15.0 The [facility] CenterComment on above:Performed By: #### AMM #### [facility] [address] [place] [address] Dr. Nilay GibbsHematocrit (Bld) [Volume fraction]39.3 %Critically low42.0-54.0 The [facility] CenterComment on above:Performed By: #### AMM #### [facility] [address] [place] [address] Dr. Nilay GibbsHemoglobin (Bld) [Mass/Vol]13.1 g/dLCritically low14.0-18.0The [facility] CenterComment on above:Performed By: #### AMM #### [facility] [address] [place] [address] Dr. Nilay Ernst #0.03 10e3/ulNormal0.00-0.03The [facility] CenterComment on above:Performed By: #### AMM #### [facility] [address] [place] [address] Dr. Nilay Ernst %0.3 %Normal0.0-0.5The [facility] CenterCommclaren [facility] [place] on above: Performed By: #### AMM #### [facility] [address] [place] [address] Dr. Nilay DavisH #1.7 103/ulNormal1.2-3.8The [facility] Hospitalment on above:Performed By: #### AMM #### [facility] [address] [place] [address] Dr. Nilay Dickersonmphocytes/100 WBC (Bld)14.5 %Critically low20.5-60.0The [facility] Hospitalment on above:Performed By: #### AMM #### [facility] [address] [place] [address] Dr. Nilay GibbsMANUAL DIFF REQNONormalThe [facility] CenterComment on above: Performed By: #### AMM #### [facility] [address] [address] [address] Nilay Hodges (RBC) [Entitic mass]29.2 fhPcehhh11.9-34.0The [facility] CenterComment on above:Performed By: #### AMM #### [facility] [address] [address] [address] Nilay Hodges (RBC) [Mass/Vol]33.3 g/zLLozria85.9-35.2The [facility] CenterComment on above:Performed By: #### AMM #### [facility] [address] [address] [address] Nilay Hodges (RBC) [Entitic vol]87.5 rFMwyrwk70.0-94.0The [facility] CenterComment on above:Performed By: #### AMM #### [facility] [address] [place] [address] Dr. Nilay Rendon #1.3 103/ulCritically high0.3-0.8The [facility] Comment on above:Performed By: #### AMM #### [facility] [address] [place] [address] Dr. Nilay Grahamocytes/100 WBC (Bld)10.9 %Normal1.7-12.0[facility] Comment on above:Performed By: #### AMM #### [facility] [address] [address] [address] Nilay Coutler #8.7 103/ulCritically high1.4-6.5The [facility] Comment on above:Performed By: #### AMM #### [facility] [address] [address] [address] Nilay Brownutrophils/100 WBC (Bld)73.8 %Knworb87.0-75.0The [facility] CenterComment on above:Performed By: #### AMM #### [facility] [address] [place] [address] Dr. Nilay Gutierrezlet mean volume (Bld) [Entitic vol]10.9 fLNormal9.5-13.5The [facility] CenterComment on above:Performed By: #### AMM #### [facility] [address] [place] [address] Dr. Nilay GibbsPLT171 103/xuPovgah191-465Mhi [facility] CenterComment on above: Performed By: #### AMM #### [facility] [address] [place] [address] Dr. Nilay GibbsRBC4.49 106/ulCritically low4.70-6.10The [facility] CenterComment on above:Performed By: #### AMM #### [facility] [address] [place] [address] Dr. Nilay GibbsWBC11.7 103/ulCritically high4.0-11.0The [facility] CenterComment on above:Performed By: #### AMM #### [facility] [address] [place] [address] Dr. Nilay Angle 52-33-0945WCE28.4 mg/dLCritically high<=1.0The [facility] CenterComment on above:Performed By: #### CRP, CMP #### [facility] [address] [place] [address] Dr. Nilay Jackson BLOODon 45-67-3059Qxfwcbwcmvm examination of blood, cultureCulture Observations: NO GROWTH AT 5 DAYS.NormalThe [facility] CenterComment on above:Performed By: #### CMP #### [facility] [address] [place] [address] Dr. Nilay GibbsMicroscopic examination of blood, cultureCulture Observations: NO GROWTH AT 5 DAYS.NormalThe [facility] CenterComment on above:Performed By: #### CMP #### [facility] [address] [place] [address] Dr. Nilay GibbsLACTATE/LACTIC ACIDon 75-73-0229Nrpskxi [Moles/Vol]0.7 mmol/L Normal0.4-2.0The [facility] CenterComment on above:Performed By: #### AMM #### [facility] [address] [address] [address] Nilay OglesbyF 14(COMP METB)on 96-00-7079Wxzbjez [Mass/Vol]3.8 g/dLNormal 3.4-5.0The [facility] CenterComment on above:Performed By: #### CRP, CMP #### [facility] [address] [address] [address] iNlay GibbsAlbumin/Globulin [Mass ratio]1.1 {ratio}NormalThe [facility] CenterComment on above:Performed By: #### CRP, CMP #### [facility] [address] [address] [address] Nilay WatersP [Catalytic activity/Vol]85 U/SUgoedo36-295Nvy [facility] CenterComment on above:Performed By: #### CRP, CMP #### [facility] [address] [address] [address] Nilay WatersT [Catalytic activity/Vol]29 U/GMzuxdj08-10Dmg [facility] CenterComment on above:Performed By: #### CRP, CMP #### [facility] [address] [address] [address] Nilay Lopez gap [Moles/Vol]15.2 mmol/LNormalOhiohealth [facility] Comment on above:Performed By: #### CRP, CMP #### [facility] [address] [address] [address] Nilay GibbsAST [Catalytic activity/Vol]20 U/OLnymvd36-24Jmu [facility] Hospitalment on above:Performed By: #### CRP, CMP #### [facility] [address] [address] [address] Nilay GibbsBilirubin [Mass/Vol]1.1 mg/dLCritically high0.2-1.0The [facility] on above:Performed By: #### CRP, CMP #### [facility] [address] [address] [address] Nilay GibbsCalcium [Mass/Vol]9.4 mg/dLNormal8.5-10.1[facility] Comment on above:Performed By: #### CRP, CMP #### [facility] [address] [address] [address] Nilay GibbsChloride [Moles/Vol]99 mmol/AQlttwl19-085Phw [facility] Comment on above:Performed By: #### CRP, CMP #### [facility] [address] [address] [address] Nilay GibbsCO2 [Moles/Vol]25.7 mmol/SUleqck61.0-32.0The [facility] Comment on above:Performed By: #### CRP, CMP #### [facility] [address] [address] [address] Nilay GibbsCreatinine [Mass/Vol]1.32 mg/dLCritically high0.70-1.30The [facility] CenterComment on above:Performed By: #### CRP, CMP #### [facility] [address] [address] [address] Nilay TalleyGFR-AF CYMRAES>60Normal>=60The [facility] CenterComment on above:Performed By: #### CRP, CMP #### [facility] [address] [address] [address] Nilay TalleyGFR-NON AF CYMRAES>60Normal>=60The [facility] CenterComment on above:Performed By: #### CRP, CMP #### [facility] [address] [address] [address] Nilay GibbsGlobulin (S) [Mass/Vol]3.6 g/dLNormalThe [facility] CenterComment on above:Performed By: #### CRP, CMP #### [facility] [address] [address] [address] Nilay GibbsGlucose [Mass/Vol]106 mg/gZHkiuuq45-777Ufm [facility] Comment on above:Performed By: #### CRP, CMP #### [facility] [address] [address] [address] Nilay GibbsPotassium [Moles/Vol]3.9 mmol/LNormal3.5-5.1The [facility] Comment on above:Performed By: #### CRP, CMP #### [facility] [address] [address] [address] Nilay GibbsProtein [Mass/Vol]7.4 g/dLNormal6.4-8.2The [facility] Comment on above:Performed By: #### CRP, CMP #### [facility] [address] [address] [address] Nilay GibbsSodium [Moles/Vol]136 mmol/FXeeehd564-315Dsk [facility] Comment on above:Performed By: #### CRP, CMP #### [facility] [address] [place] [address] Dr. Nilay GibbsUrea nitrogen [Mass/Vol]10.0 mg/dLNormal7.0-18.0The [facility] CenterComment on above:Performed By: #### CRP, CMP #### [facility] [address] [place] [address] Dr. Nilay Faye nitrogen/Creatinine [Mass ratio]7.6 mg/mgNormalThe [facility] CenterComment on above:Performed By: #### CRP, CMP #### [facility] [address] [place] [address] Dr. Nilay GibbsSEDonal [facility] HOSPITALRENon 67-91-8449HJW RATE46 mm/hrCritically high <=15The [facility] CenterComment on above:Performed By: #### SEDR #### [facility] [address] [place] [address] Dr. Nilay Hartley-19 PCR ([facility])on 78-76-6445DKYG-CoV-2 (COVID-19) RNA TALHA+probe Ql (Unsp spec)Not detectedNormalNOT DETECTEDThe [facility] Comment on above:Result Comment: When diagnostic testing is negative, the [...] for this test is supported by the [place] [employer] Service's declaration that circumstances exist to justify the emergency use of in vitro diagnostics for the detection and/or diagnosis of the virus that causes COVID-19. This EUA will remain in effect for the duration of the COVID-19 declaration justifying emergency of IVDs, unless it is terminated or revoked by the FDA (after which the test may no longer be used).Performed By: #### AMM #### [facility] [address] [place] [address] Dr. Nilay Redding AND B [facility] 91-00-1919QIAOFTDTPSVRWMemorial Health System on above:Result Comment: Negative for Flu A protein angiten. Infection due to Flu A cannot be ruled out. FluA angiten in the sample may be below the detection limit of the test.Performed By: #### AMM #### [facility] [address] [place] [address] Dr. Nilay GibbsINFLUBNEGMARTITA [facility] on above: Result Comment: Negative for Flu B protein antigen. Infection due to Flu B cannot be ruled out. FluB antigen in the sample may be below the detection limit of the test.Performed By: #### AMM #### [facility] [address] [place] [address] Dr. Nilay Redding AGNegativeNormalNEGATIVE SEE COMMENTThe [facility] on above:Performed By: #### AMM #### [facility] [address] [place] [address] Dr. Nilay Blanc AGNegativeNormalNEGATIVE SEE COMMENTThe [facility] on above:Performed By: #### AMM #### [facility] [address] [place] [address] Dr. Nilay GibbsINTERNAL CONTROLSWithin Normal LimitsNormalWithin Normal Limits The [facility] on above:Performed By: #### AMM #### [facility] [address] [address] [address] Pemberton ChangCholesterol [Mass/volume] in Serum or PlasmaOrdered By: Adam Young on 56-97-9457Mxxdeugmgjx [Mass/Vol]205 mg/yJ155-071DhwfkwvbkDetwiler Memorial HospitalComment on above:Chol less than 200 mg/dl low riskChol 201-239 mg/dl borderline riskChol 240 mg/dl and greater high riskCholesterol in LDL Calc [Mass/Vol]Ordered By: Adam Young on 11-90-0388Smlblqwrtpp in LDL [Mass/Vol] 120 mg/dL0-100[facility] HospitalComment on above:LDL ATP III CLASSIFICATIONLDL less than 100 mg/dL OptimalLDL 100-129 mg/dL Near or above atctxbrNBL679-741 mg/dL Borderline highLDL 160-189 mg/dL HighLDL greater than 189 mg/dL Very highCholesterol in VLDL Calc [Mass/Vol]Ordered By: Adam Young on 74-82-8170Ezcajahlnwi in VLDL [Mass/Vol]37 mg/dLDetwiler Memorial HospitalNo Panel InformationOrdered By: Adam Young on [id number]-Idtqnqh Vitamin D Total50.6 ng/zI28-020EeyxzjcupDetwiler Memorial HospitalComment on above:VITAMIN D STATUS 25(OH)VITAMIN D RANGE (ng/mL) Deficient <20 Insufficient 20 to <92Rzogioukuz13 to 100Reference: Harpal MF,[place], Dayron WAN, et al. Evaluation,treatment, and prevention of vitamin D deficiency; an Endocrine Society clinical practice guideline. JCEM. 2010; 96(7):1911-30. Serum or plasma high density lipoprotein (HDL) cholesterol measurementOrdered By: Adam Young on 79-71-4676Bwqaofpiytu in HDL [Mass/Vol]47 mg/dL29-71 [facility] HospitalComment on above:HDL CHOL ATP-III CLASSIFICATION Cardiovascular RiskHDL > or equal to 60 mg/dL LOWHDL < 40 mg/dL HIGHSerum or plasma total cholesterol/high density lipoprotein (HDL) cholesterol mass ratOrdered By: Adam Young on 28-99-7081Ftjmbnkxdtq.total/Cholesterol in HDL [Mass ratio]4.4 {ratio}<5.0Detwiler Memorial HospitalTS DL <= 0.005 mIU/L QnOrdered By: Adam Young on 67-61-8163TVK Qn0.75 m[IU]/L 0.45-5.33Detwiler Memorial HospitalTriglyceride [Mass/volume] in Serum or PlasmaOrdered By: Adam Young on 20-23-8259Yseuiflkwsis [Mass/Vol]188 mg/dL 35-149Det[facility] HospitalComment on above:TRIG ATP III CLASSIFICATIONTRIG less than 150 mg/dL NormalTRIG 150-199 mg/dL Borderline highTRIG 200-500 mg/dL High TRIG greater than 500 mg/dL Very highStandard traceable to the Center for Disease Conrtrol and Prevention (CDC) test method. Covid-19 PCR ([facility])on 51-61-0303JMAS-CoV-2 (COVID-19) RNA TALHA+probe Ql (Unsp spec)Not detectedNormalNOT DETECTEDThe [facility] CenterComment on above:Result Comment: When diagnostic testing is negative, the [...] for this test is supported by the [place] [employer] and Human Service's declaration that circumstances exist to justify the emergency use of in vitro diagnostics for the detection and/or diagnosis of the virus that causes COVID-19. This EUA will remain in effect for the duration of the COVID-19 declaration justifying emergency of IVDs, unless it is terminated or revoked by the FDA (after which the test may no longer be used).Performed By: #### CMP #### [facility] [address] [address] [address] Nilay TalleyTHANOL (BLD ALC)on 75-96-3334Ixasrcn [Mass/Vol]288 mg/dLNormal The [facility] CenterCommclaren [facility] [place] on above:Performed By: #### CMP #### [facility] [address] [place] [address] Dr. Nilay GibbsALC NOTENOTE: 80 mg/dl is the legal limit for a blood alcohol levelNoUniversity Hospitals Health SystemComment on above:Performed By: #### CMP #### [facility] [address] [place] [address] Dr. Nilay GibbsPerformed By: #### AMM #### [facility] [address] [place] [address] Dr. Pemberton ChangEthanol [Mass/Vol]130 mg/dLNoUniversity Hospitals Health SystemComment on above:Performed By: #### AMM #### [facility] [address] [place] [address] Dr. Pemberton ChangEthanol [Mass/Vol]196 mg/dLNoUniversity Hospitals Health SystemComment on above:Performed By: #### AMM #### [facility] [address] [place] [address] Dr. Nilay GibbsACETAMINOPHENon 59-30-3312Emzywfgnixhpb [Mass/Vol]ug/mLCritically low10.0-30.0The [facility] CenterCommclaren [facility] [place] on above:Performed By: #### ACET #### [facility] [address] [place] [address] Dr. Nilay GibbsAMMONIAon 82-71-6093Uecceum (P) [Moles/Vol]22 umol/OYmqxbu70-92 The [facility] CenterCommclaren [facility] [place] on above:Performed By: #### AMM #### [facility] [address] [place] [address] Dr. Nilay GibbsCBC AUTO DIFFon 29-62-5745BEPX #0.0 103/ulNormal0.0-0.1[facility] on above:Performed By: #### AMM #### [facility] [address] [place] [address] Dr. Nilay GibbsBasophils/100 WBC (Bld)0.5 %Normal0.2-2.0The [facility] Comment on above:Performed By: #### AMM #### [facility] [address] [place] [address] Dr. Nilay Wong #0.1 103/ulNormal0.0-0.7The [facility] CenterComment on above: Performed By: #### AMM #### [facility] [address] [place] [address] Dr. Nilay Talleyosinophils/100 WBC (Bld)1.0 %Normal0.9-7.0The [facility] Comment on above:Performed By: #### AMM #### [facility] [address] [place] [address] Dr. Nilay Romanothrocyte distribution width (RBC) [Ratio]12.9 %Bzxite26.0-15.0 [facility] HospitalComment on above:Performed By: #### AMM #### [facility] [address] [place] [address] Dr. Nilay GibbsHematocrit (Bld) [Volume fraction]40.5 %Critically low42.0-54.0 [facility] HospitalComment on above:Performed By: #### AMM #### [facility] [address] [place] [address] Dr. Nilay GibbsHemoglobin (Bld) [Mass/Vol]13.9 g/dLCritically low14.0-18.0[facility] HospitalComment on above:Performed By: #### AMM #### [facility] [address] [place] [address] Dr. Nilay Ernst #0.02 10e3/ulNormal0.00-0.03The [facility] CenterComment on above:Performed By: #### AMM #### [facility] [address] [place] [address] Dr. Nilay Ernst %0.3 %Normal0.0-0.5The [facility] CenterComment on above: Performed By: #### AMM #### [facility] [address] [place] [address] Dr. Nilay Ellsworth #2.7 103/ulNormal1.2-3.8The [facility] CenterComment on above:Performed By: #### AMM #### [facility] [address] [place] [address] Dr. Nilay Dickersonmphocytes/100 WBC (Bld)45.2 %Pjzlph48.5-60.0The [facility] CenterComment on above:Performed By: #### AMM #### [facility] [address] [place] [address] Dr. Nilay KilpatrickUAL DIFF REQNONormalThe [facility] CenterComment on above: Performed By: #### AMM #### [facility] [address] [place] [address] Dr. Nilay Glasgow (RBC) [Entitic mass]29.8 xtEareio51.9-34.0The [facility] CenterComment on above:Performed By: #### AMM #### [facility] [address] [place] [address] Dr. Nilay Hodges (RBC) [Mass/Vol]34.3 g/wXSvrlju39.9-35.2The [facility] CenterComment on above:Performed By: #### AMM #### [facility] [address] [place] [address] Dr. Nilay Raza (RBC) [Entitic vol]86.9 kIYqhrfe08.0-94.0The [facility] CenterComment on above:Performed By: #### AMM #### [facility] [address] [place] [address] Dr. Nilay Rendon #0.4 103/ulNormal0.3-0.8The [facility] CenterComment on above:Performed By: #### AMM #### [facility] [address] [place] [address] Dr. Nilay Grahamocytes/100 WBC (Bld)6.3 %Normal1.7-12.0The [facility] Comment on above:Performed By: #### AMM #### [facility] [address] [place] [address] Dr. Nilay Coulter #2.7 103/ulNormal1.4-6.5The [facility] CenterComment on above:Performed By: #### AMM #### [facility] [address] [place] [address] Dr. Nilay Brownutrophils/100 WBC (Bld)46.7 %Zftjhq59.0-75.0The [facility] CenterComment on above:Performed By: #### AMM #### [facility] [address] [place] [address] Dr. Nilay GibbsPlatelet mean volume (Bld) [Entitic vol]10.4 fLNormal9.5-13.5The [facility] CenterCommclaren [facility] [place] on above:Performed By: #### AMM #### [facility] [address] [place] [address] Dr. Nilay GibbsPLT237 103/eoQatftf586-422Mst [facility] CenterCommclaren [facility] [place] on above: Performed By: #### AMM #### [facility] [address] [place] [address] Dr. Nilay GibbsRBC4.66 106/ulCritically low4.70-6.10The [facility] CenterCommclaren [facility] [place] on above:Performed By: #### AMM #### [facility] [address] [place] [address] Dr. Nilay GibbsWBC5.9 103/ulNormal4.0-11.0The [facility] CenterCommclaren [facility] [place] on above: Performed By: #### AMM #### [facility] [address] [place] [address] Dr. Nilay GibbsDRUG SCREEN RAPID (URINE)on 28-30-9040UDZMddfkamuPyblhwPBQCUMYO The [facility] CenterCommclaren [facility] [place] on above:Performed By: #### DRUGRPD #### [facility] [address] [place] [address] Dr. Nilay GibbsBARNegativeNormalNEGATIVEOhiohealth Grady Memorial HospitalCommclaren [place] on above: Performed By: #### DRUGRPD #### [facility] [address] [place] [address] Dr. Nilay PoolePNegativeNormalNEGATIVEOhiohealth Grady Memorial HospitalComment on above: Performed By: #### DRUGRPD #### [facility] [address] [place] [address] Dr. Nilay LawlerZOPositiveAbnormalNEGATIVEOhiohealth Grady Memorial HospitalComment on above: Performed By: #### DRUGRPD #### [facility] [address] [place] [address] Dr. Nilay ArthurCNegativeNormalNEGATIVEOhiohealth Grady Memorial HospitalComment on above: Performed By: #### DRUGRPD #### [facility] [address] [place] [address] Dr. Nilay PoonFisher-Titus Medical CenterComment on above: Result Comment: AMP (Amphetamine): 500ng/mL, BAR (Barbituates): 200 ng/mL, BZO (Benzodiazepines): 150 ng/mL, BUP (Buprenorphine): 10 ng/mL, ROQUE (Cocaine): 150 ng/mL, mAMP (Methamphetamine): 500 ng/mL, MTD (Methadone): 200 ng/mL, OPI (Opiates): 100 ng/mL, OXY (Oxycodone): 100 ng/mL, PCP (Phencyclidine): 25 ng/mL, PPX (Propoxyphene): 300 ng/mL, THC (Cannabinoids): 50 ng/mL, TCA (Trycyclic Antidepressants): 300 ng/mLPerformed By: #### DRUGRPD #### [facility] [address] [place] [address] Dr. Nilay GibbsDRUG CUT HEADERDRUG CLASS TEST SYSTEM CUT-OFF CONCENTRATIONS ARE FOLLOWS:NormalThe [facility] CenterCommclaren [facility] [place] on above:Performed By: #### DRUGRPD #### [facility] [address] [place] [address] Dr. Nilay GibbsmAMPNegativeNormalNEGATIVEOhiohealth Grady Memorial HospitalCommclaren central [place] on above: Performed By: #### DRUGRPD #### [facility] [address] [place] [address] Dr. Nilay GibbsMTDNegativeNormalNEGATIVEOhiohealth Grady Memorial HospitalComment on above: Performed By: #### DRUGRPD #### [facility] [address] [address] [address] Nilay GibbsOPINegativeNormalNEGATIVEOhiohealth Grady Memorial HospitalComment on above: Performed By: #### DRUGRPD #### [facility] [address] [address] [address] Nilay GibbsOXYNegativeNormalNEGATIVEOhiohealth Grady Memorial HospitalComment on above: Performed By: #### DRUGRPD #### [facility] [address] [address] [address] Nilay GibbsPCPNegativeNormalNEGATIVEOhiohealth Grady Memorial HospitalComment on above: Performed By: #### DRUGRPD #### [facility] [address] [place] [address] Dr. Nilay GibbsPPXNegativeNormalNEGATIVEOhiohealth Grady Memorial HospitalComment on above: Performed By: #### DRUGRPD #### [facility] [address] [place] [address] Dr. Nilay GibbsTCANegativeNormalNEGATIVEOhiohealth Grady Memorial HospitalCommclaren central [place] on above: Performed By: #### DRUGRPD #### [facility] [address] [place] [address] Dr. Nilay GibbsTHCNegativeNormalNEGUC HealthComment on above: Performed By: #### DRUGRPD #### [facility] [address] [place] [address] Dr. Nilay Washington (BLD ALC)on 77-69-5805VDA NOTENOTE: 80 mg/dl is the legal limit for a blood alcohol levelNoUniversity Hospitals Health SystemComment on above: Performed By: #### CMP #### [facility] [address] [place] [address] Dr. Nilay Tiananol [Mass/Vol]336 mg/dLNoUniversity Hospitals Health SystemComment on above:Performed By: #### CMP #### [facility] [address] [place] [address] Dr. Nilay OglesbyF 14(COMP METB)on 39-28-7391Plgbmcw [Mass/Vol]4.2 g/dLNormal 3.4-5.0The [facility] CenterComment on above:Performed By: #### CMP #### [facility] [address] [place] [address] Dr. Nilay GibbsAlbumin/Globulin [Mass ratio]1.3 {ratio}NormalThe [facility] CenterComment on above:Performed By: #### CMP #### [facility] [address] [place] [address] Dr. Nilay WatersP [Catalytic activity/Vol]104 U/MEcvzwg86-894Gpj [facility] CenterComment on above:Performed By: #### CMP #### [facility] [address] [place] [address] Dr. Nilay Childs [Catalytic activity/Vol]41 U/HTnpjcm62-40Caf [facility] CenterComment on above:Performed By: #### CMP #### [facility] [address] [place] [address] Dr. Nilay Lopez gap [Moles/Vol]11.5 mmol/LNormalThe [facility] Comment on above:Performed By: #### CMP #### [facility] [address] [place] [address] Dr. Nilay GibbsAST [Catalytic activity/Vol]37 U/LPekgej66-92Qra [facility] CenterComment on above:Performed By: #### CMP #### [facility] [address] [place] [address] Dr. Nilay GibbsBilirubin [Mass/Vol]0.2 mg/dLNormal0.2-1.0The [facility] Comment on above:Performed By: #### CMP #### [facility] [address] [place] [address] Dr. Nilay GibbsCalcium [Mass/Vol]8.6 mg/dLNormal8.5-10.1The [facility] Comment on above:Performed By: #### CMP #### [facility] [address] [place] [address] Dr. Nilay GibbsChloride [Moles/Vol]97 mmol/LCritically pnz86-713EkuOhiohealth Grady Memorial HospitalComment on above:Performed By: #### CMP #### [facility] [address] [address] [address] Nilay GibbsCO2 [Moles/Vol]26.0 mmol/BJipyjm62.0-32.0The [facility] Comment on above:Performed By: #### CMP #### [facility] [address] [address] [address] Nilay GibbsCreatinine [Mass/Vol]1.47 mg/dLCritically high0.70-1.30The [facility] CenterComment on above:Performed By: #### CMP #### [facility] [address] [place] [address] Dr. Pemberton ChangEGFR-AF CYMRAES>60Normal>=60The [facility] CenterComment on above:Performed By: #### CMP #### [facility] [address] [place] [address] Dr. Nilay TalleyGFR-NON AF GMRBTUQI01 mL/min/1.74a1Uwtiywkinl low>=60The [facility] CenterComment on above:Performed By: #### CMP #### [facility] [address] [place] [address] Dr. Nilay GibbsGlobulin (S) [Mass/Vol]3.2 g/dLNormalThe [facility] CenterComment on above:Performed By: #### CMP #### [facility] [address] [address] [address] Nilay GibbsGlucose [Mass/Vol]117 mg/dLCritically ckbc07-047Qwd [facility] CenterComment on above:Performed By: #### CMP #### [facility] [address] [place] [address] Dr. Nilay GibbsPotassium [Moles/Vol]3.5 mmol/LNormal3.5-5.1The [facility] Comment on above:Performed By: #### CMP #### [facility] [address] [place] [address] Dr. Nilay GibbsProtein [Mass/Vol]7.4 g/dLNormal6.4-8.2The [facility] Comment on above:Performed By: #### CMP #### [facility] [address] [address] [address] Nilay GibbsSodium [Moles/Vol]131 mmol/LCritically psg793-956Zfa [facility] CenterComment on above:Performed By: #### CMP #### [facility] [address] [address] [address] Nilay GibbsUrea nitrogen [Mass/Vol]14.0 mg/dLNormal7.0-18.0The [facility] CenterComment on above:Performed By: #### CMP #### [facility] [address] [place] [address] Dr. Nilay Faye nitrogen/Creatinine [Mass ratio]9.5 mg/mgNormalThe [facility] CenterComment on above:Performed By: #### CMP #### [facility] [address] [place] [address] Dr. Nilay GibbsSALICYLATEon 65-33-1230AGKWNHWWNE<2.8Normal<=19.9The [facility] CenterComment on above:Performed By: #### AMM #### [facility] [address] [place] [address] Dr. Nilay GibbsMRI Shoulder w/o Lefton 24-54-4098RVQ Shoulder w/o LeftHISTORY: Left posterior and lateral shoulder pain for [...] and signed by Stephen Ware on 11/11/2021 0955NoalParkview Health Montpelier HospitalActivated partial thromboplastin time (aPTT) in platelet poor plasma by coagulation aOrdered By: Kristal Goldberg on 89-19-5798hPHQ Coag (PPP) [Time]34.7 s25.1-36.5FSelect Medical Cleveland Clinic Rehabilitation Hospital, BeachwoodAlbumin [Mass/volume] in Serum or PlasmaOrdered By: Kristal Goldberg on 21-81-1543Lzfspci [Mass/Vol]4.1 g/dL3.2-5.5FSelect Medical Cleveland Clinic Rehabilitation Hospital, BeachwoodBasophils Auto (Bld) [#/Vol]Ordered By: Kristal Goldberg on 94-30-5799Igqfyztlh (Bld) [#/Vol]0.0 10*3/uL0.0-0.2FSelect Medical Cleveland Clinic Rehabilitation Hospital, BeachwoodBasophils/100 WBC Auto (Bld) Ordered By: Kristal Goldberg on 27-70-3533Shcyucnyk/100 WBC (Bld)0.3 %.[facility] HospitalBilirubin Auto test strip Ql (U)Ordered By: Kristal Goldberg on 68-38-5876Yqewezwfo Ql (U)NegativeNegativeDetwiler Memorial HospitalBlood hemoglobin measurement (mass/volume)Ordered By: Kristal Goldberg on 79-16-7291Ilimqqmcxw (Bld) [Mass/Vol]13.6 g/dL13.0-17.0[facility] Memorial HospitalBlood leukocytes automated count (number/volume)Ordered By: Kristal Goldberg on 76-08-2379EIX (Bld) [#/Vol]5.7 10*3/uL4.5-11.0Det[facility]iler Memorial HospitalCBC AUTO DIFFon 73-00-7850XTQQ #0.0 103/ulNormal0.0-0.1 [facility] HospitalComment on above:Performed By: #### AMM #### [facility] [address] [address] [address] Nilay GibbsBasophils/100 WBC (Bld)0.5 %Normal0.2-2.0[facility] Comment on above:Performed By: #### AMM #### [facility] [address] [address] [address] Nilay Wong #0.1 103/ulNormal0.0-0.7The [facility] CenterComment on above: Performed By: #### AMM #### [facility] [address] [place] [address] Dr. Nilay Talleyosinophils/100 WBC (Bld)1.6 %Normal0.9-7.0The [facility] Comment on above:Performed By: #### AMM #### [facility] [address] [place] [address] Dr. Nilay Talleyrythrocyte distribution width (RBC) [Ratio]14.0 %Iqhpml92.0-15.0 [facility] HospitalComment on above:Performed By: #### AMM #### [facility] [address] [place] [address] Dr. Nilay GibbsHematocrit (Bld) [Volume fraction]40.2 %Critically low42.0-54.0 [facility] HospitalComment on above:Performed By: #### AMM #### [facility] [address] [place] [address] Dr. Nilay GibbsHemoglobin (Bld) [Mass/Vol]13.7 g/dLCritically low14.0-18.0The [facility] CenterComment on above:Performed By: #### AMM #### [facility] [address] [place] [address] Dr. Nilay Ernst #0.01 10e3/ulNormal0.00-0.03The [facility] Hospitalment on above:Performed By: #### AMM #### [facility] [address] [place] [address] Dr. Nilay Ernst %0.2 %Normal0.0-0.5The [facility] CenterCommclaren [facility] [place] on above: Performed By: #### AMM #### [facility] [address] [address] [address] Nilay Ellsworth #2.1 103/ulNormal1.2-3.8The [facility] CenterComment on above:Performed By: #### AMM #### [facility] [address] [place] [address] Dr. Nilay Davishocytes/100 WBC (Bld)37.1 %Ytremx30.5-60.0The [facility] on above:Performed By: #### AMM #### [facility] [address] [place] [address] Dr. Nilay KilpatrickUAL DIFF REQNONormalThe [facility] CenterComment on above: Performed By: #### AMM #### [facility] [address] [place] [address] Dr. Nilay Hodges (RBC) [Entitic mass]30.1 iyFimvtd44.9-34.0The [facility] on above:Performed By: #### AMM #### [facility] [address] [place] [address] Dr. Nilay Hodges (RBC) [Mass/Vol]34.1 g/uGRxqoce84.9-35.2The [facility] on above:Performed By: #### AMM #### [facility] [address] [place] [address] Dr. Nilay Raza (RBC) [Entitic vol]88.4 aZWpkhlz26.0-94.0[facility] on above:Performed By: #### AMM #### [facility] [address] [place] [address] Dr. Nilay Rendon #0.4 103/ulNormal0.3-0.8The [facility] CenterComment on above:Performed By: #### AMM #### [facility] [address] [address] [address] Nilay Grahamocytes/100 WBC (Bld)7.2 %Normal1.7-12.0The [facility] Comment on above:Performed By: #### AMM #### [facility] [address] [place] [address] Dr. Nilay Coulter #3.1 103/ulNormal1.4-6.5The [facility] CenterComment on above:Performed By: #### AMM #### [facility] [address] [place] [address] Dr. Nilay Brownutrophils/100 WBC (Bld)53.4 %Lgmpxi30.0-75.0The [facility] CenterComment on above:Performed By: #### AMM #### [facility] [address] [place] [address] Dr. Nilay GibbsPlatelet mean volume (Bld) [Entitic vol]10.3 fLNormal9.5-13.5The [facility] CenterComment on above:Performed By: #### AMM #### [facility] [address] [place] [address] Dr. Nilay GibbsPLT254 103/erBcqgrn924-725Atp [facility] CenterComment on above: Performed By: #### AMM #### [facility] [address] [place] [address] Dr. Nilay GibbsRBC4.55 106/ulCritically low4.70-6.10The [facility] CenterComment on above:Performed By: #### AMM #### [facility] [address] [place] [address] Dr. Nilay GibbsWBC5.7 103/ulNormal4.0-11.0The [facility] CenterComment on above: Performed By: #### AMM #### [facility] [address] [place] [address] Dr. Nilay GibbsID HEAD CONon 96-39-9732BU HEAD WO CONCT head without contrast CLINICAL: Neck swelling and pain. TECHNIQUE: Contiguous [...] Electronically authenticated by: RUFINA MARIN Date: 2021-09-27 10:27[facility] HEAD WO W CONon 61-25-8318LZH HEAD WO W CONCTA HEAD WITH CONTRAST: 09/27/2021 9:35 AM EDT History: Pain. Neck [...] Electronically authenticated by: NEL KING Date: 2021-09-27 12:19[facility] HospitalCTA NECK WO W CONon [id number] NECK WO W CONCT ANGIOGRAPHY NECK: 09/27/2021 9:35 AM EDT Clinical [...] Electronically authenticated by: NEL KING Date: 2021-09-27 12:06[facility] HospitalCreatine kinase [Enzymatic activity/volume] in Serum or Plasma Ordered By: Kristal Goldberg on 72-20-5339JN [Catalytic activity/Vol]181 U/L [facility] HospitalCreatinine and Glomerular filtration rate.predicted panel (S/P/Bld)Ordered By: Kristal Goldberg on 09-27-2021 Creatinine [Mass/Vol]1.36 mg/dL0.64-1.27[facility] Eosinophils Auto (Bld) [#/Vol]Ordered By: Kristal Goldberg on 09-27-2021 Eosinophils (Bld) [#/Vol]0.1 10*3/uL0.0-0.45[facility] Eosinophils/100 WBC Auto (Bld)Ordered By: Kristal Goldberg on 09-27-2021 Eosinophils/100 WBC (Bld)1.2 %.[facility] HospitalErythrocyte distribution width Auto (RBC) [Ratio]Ordered By: Kristal Goldberg on 09-27-2021 Erythrocyte distribution width (RBC) [Ratio]14.5 %12.0-14.8[facility] HospitalEstimated glomerular filtration rate (GFR) non- Ordered By: Kristal Goldberg on 28-45-1387ITJ/1.73 sq M.predicted among non- blacks MDRD (S/P/Bld) [Vol rate/Area]> 60 mL/MinDetwiler Memorial HospitalGlobulin Calc (S) [Mass/Vol]Ordered By: Kristal Goldberg on 09-27-2021 Globulin (S) [Mass/Vol]2.4 g/dLDetwiler Memorial HospitalHematocrit Auto (Bld) [Volume fraction]Ordered By: Kristal Goldberg on 95-38-8144Ishzavowmx (Bld) [Volume fraction]40.8 %38.8-50.0[facility] HospitalKetones Auto test strip (U) [Mass/Vol]Ordered By: Kristal Goldberg on 86-93-1498Sfxbkvm (U) [Mass/Vol]NegativeNegativeDetwiler Memorial HospitalLaboratory - CoagulationOrdered By: Kristal Goldberg on 88-23-5169CO Coag (PPP) [Time]11.8 s 9.0-12.9[facility] HospitalLaboratory - Hematology and Cell counts Ordered By: Kristal Goldberg on 63-30-5917Aoyyshrew RBC/100 WBC (Bld) [Ratio]0.0 %0-0.5FSelect Medical Cleveland Clinic Rehabilitation Hospital, BeachwoodLymphocytes Auto (Bld) [#/Vol]Ordered By: Kristal Goldberg on 99-18-1445Boiteawdvzl (Bld) [#/Vol]1.8 10*3/uL1.00-4.8 [facility] HospitalLymphocytes/100 WBC Auto (Bld)Ordered By: Kristal Goldberg on 21-53-3343Khonkkogmvv/100 WBC (Bld)31.2 %.[facility] HospitalH Auto (RBC) [Entitic mass]Ordered By: Kristal Goldberg on 69-59-3322QXW (RBC) [Entitic mass]30.1 pg27.5-35.2FSelect Medical Cleveland Clinic Rehabilitation Hospital, BeachwoodMCHC Auto (RBC) [Mass/Vol]Ordered By: Kristal Goldberg on 81-99-3728ONVI (RBC) [Mass/Vol]33.4 g/dL32.5-35.6FSelect Medical Cleveland Clinic Rehabilitation Hospital, BeachwoodMCV Auto (RBC) [Entitic vol]Ordered By: Kristal Goldberg on 11-13-0047JWC (RBC) [Entitic vol]90.3 fL83.5-101[facility] HospitalMonocytes Auto (Bld) [#/Vol] Ordered By: Kristal Goldberg on 57-20-5326Rxjkzydfg (Bld) [#/Vol]0.3 10*3/uL 0.0-0.8[facility] HospitalMonocytes/100 WBC Auto (Bld)Ordered By: Kristal Goldberg on 62-42-1174Vzmsjpehi/100 WBC (Bld)6.0 %.[facility] HospitalNeutrophils Auto (Bld) [#/Vol]Ordered By: Kristal Goldberg on 52-59-4687Psvuxlzauuu (Bld) [#/Vol]3.5 10*3/uL1.8-7.7FSelect Medical Cleveland Clinic Rehabilitation Hospital, BeachwoodNeutrophils/100 WBC Auto (Bld)Ordered By: Kristal Goldberg on 09-27-2021 Neutrophils/100 WBC (Bld)61.3 %.[facility] HospitalNo Panel InformationOrdered By: Kristal Maria Guadalupejeffryambrosio on 15-76-5959Bhanxeprh GFR ()> 60 mL/MinDetwiler Memorial HospitalComment on above:GFR estimated reference range: According to KDOQI guidelines, <60 ml/min/1.73m2 is sufficient todiagnose a patient with chronic kidney disease.Pharmacy Creatinine Clearance (Chem94.06[facility] Memorial HospitalPROF CHEM 8 (BAS METB)on 27-04-8915Wrjhq gap [Moles/Vol]10.0 mmol/LNormalThe [facility] CenterComment on above:Performed By: #### CMP #### [facility] [address] [address] [address] Nilay GibbsCalcium [Mass/Vol]9.4 mg/dLNormal8.5-10.1[facility] Comment on above:Performed By: #### CMP #### [facility] [address] [address] [address] Nilay GibbsChloride [Moles/Vol]103 mmol/ZJxdhfa07-360QdmOhiohealth Grady Memorial Hospital Comment on above:Performed By: #### CMP #### [facility] [address] [address] [address] Nilay GibbsCO2 [Moles/Vol]27.6 mmol/RBmmrly45.0-32.0[facility] Comment on above:Performed By: #### CMP #### [facility] [address] [address] [address] Nilay GibbsCreatinine [Mass/Vol]1.39 mg/dLCritically high0.70-1.30[facility] HospitalComment on above:Performed By: #### CMP #### [facility] [address] [address] [address] Pemberton ChangEGFR-AF CYMRAES>60Normal>=60The [facility] CenterComment on above:Performed By: #### CMP #### [facility] [address] [address] [address] Pemberton ChangEGFR-NON AF CKBUCSAN81 mL/min/1.27j2Mzbbtq>=60The [facility] CenterComment on above:Performed By: #### CMP #### [facility] [address] [address] [address] Nilay GibbsGlucose [Mass/Vol]115 mg/dLCritically rdtr62-347Hpy [facility] CenterCommclaren [facility] [place] on above:Performed By: #### CMP #### [facility] [address] [address] [address] Nilay GibbsPotassium [Moles/Vol]3.6 mmol/LNormal3.5-5.1[facility] Comment on above:Performed By: #### CMP #### [facility] [address] [address] [address] Nilay GibbsSodium [Moles/Vol]137 mmol/QYbtngq457-221Brd [facility] Comment on above:Performed By: #### CMP #### [facility] [address] [address] [address] Nilay GibbsUrea nitrogen [Mass/Vol]17.0 mg/dLNormal7.0-18.0The [facility] CenterComment on above:Performed By: #### CMP #### [facility] [address] [address] [address] Nilay Faye nitrogen/Creatinine [Mass ratio]12.2 mg/mgNoUniversity Hospitals Health SystemComment on above:Performed By: #### CMP #### [facility] [address] [place] [address] Dr. Nilay GibbsPROTIMEgretchen 41-28-6214CRT Coag (PPP) [Relative time]0.99 {INR} NormalThe [facility] on above:Performed By: #### PT, PTT #### [facility] [address] [place] [address] Dr. Nilay Lopes GUIDELINESSEE BELOWOhio Valley Surgical Hospital on above:Result Comment: DESIRED INR: 2.0 - 3.0 CONDITIONS NOT LISTED BELOW 2.5 - 3.5 FOR PROSTHETIC HEART VALVE REPLACEMENT 2.5 - 3.5 RECURRENT THROMBOSIS Performed By: #### PT, PTT #### [facility] [address] [address] [address] Nilay GibbsPT Coag (PPP) [Time]10.7 sNormal9.0-11.6The [facility] Comment on above:Performed By: #### PT, PTT #### [facility] [address] [place] [address] Dr. Nilay Robertson 70-55-1996aCUF Coag (Bld) [Time]29.1 iKqlnmz97.3-36.2[facility] HospitalComment on above:Performed By: #### PT, PTT #### [facility] [address] [address] [address] Nilay GibbsPlatelet mean volume Auto (Bld) [Entitic vol]Ordered By: Kristal Goldberg on 38-96-3037Albckcvy mean volume (Bld) [Entitic vol]8.7 fL6.6-10.1 [facility] HospitalPlatelet poor plasma international normalized ratio (INR) by coagulation assay (relatOrdered By: Kristal Goldberg on 09-27-2021 INR Coag (PPP) [Relative time]1.1 {INR}[facility] HospitalComment on above:INR Therapeutic Range A) Pre- and Peroperative OAT started two weeks before surgery. NOT HIP SURGERY: 1.5 - 2.5 HIP SURGERY: 2 - 3 B) Primary and secondary prevention of venous THROMBOSIS: 2 - 3 C) Active venous thrombosis, pulmonary embolism and prevention of recurrent venous thrombosis: 2 - 3 D) Prevention of arterial thromboembolism including patients with mechanical heart valves: 3 - 4.5INR Therapeutic Range A) Pre- and Peroperative OAT started two weeks before surgery. NOT HIP SURGERY: 1.5 - 2.5 HIP SURGERY: 2 - 3B) Primary and secondary prevention of venous THROMBOSIS: 2 - 3C) Active venous thrombosis, pulmonary embolismand prevention of recurrent venous thrombosis: 2 - 3D) Prevention of arterial thromboembolismincluding patients with mechanical heart valves: 3 - 4.5Platelets Auto (Bld) [#/Vol]Ordered By: Kristal Goldberg on 96-15-2241Vjrdurdpy (Bld) [#/Vol]240 10*3/iD114-202CxmvgivonDetwiler Memorial HospitalProtein Auto test strip (U) [Mass/Vol]Ordered By: Kristal Goldberg on 26-37-5021Lelcaav (U) [Mass/Vol]NegativeNegativeDetwiler Memorial HospitalProtein [Mass/volume] in Serum or PlasmaOrdered By: Kristal Goldberg on 84-63-0814Bnlrtpx [Mass/Vol] 6.5 g/dL6.1-7.9[facility] HospitalRBC Auto (Bld) [#/Vol]Ordered By: Kristal Goldberg on 03-61-3916RAQ (Bld) [#/Vol]4.52 10*6/uL3.90-5.60[facility] Medical Centererum or plasma alanine aminotransferase measurement without P-5'-P (enzymatic activiOrdered By: Kristal Goldberg on 98-24-9391ERQ No additional P-5'-P [Catalytic activity/Vol]22 U/V58-19WpyrnzjcjFirelands Regional Medical Centererum or plasma albumin/globulin mass ratioOrdered By: Kristal Goldberg on 94-68-0428Uoqftat/Globulin [Mass ratio]1.7 {ratio}[facility] Centererum or plasma alkaline phosphatase measurement (enzymatic activity/volume)Ordered By: Kristal Goldberg on 50-24-0967EVU [Catalytic activity/Vol]72 U/W28-97SbspyzmgnFirelands Regional Medical Centererum or plasma aspartate aminotransferase measurement (enzymatic activity/volume)Ordered By: Kristal Goldberg on 70-90-1084LNY [Catalytic activity/Vol]24 U/T52-49MtiznpzrpFirelands Regional Medical Centererum or plasma calcium measurement (mass/volume)Ordered By: Kristal Goldberg on 97-43-6462Hvusgwf [Mass/Vol]9.6 mg/dL8.2-10.2FLakeHealth TriPoint Medical Centererum or plasma chloride measurement (moles/volume) Ordered By: Kristal Goldberg on 09-14-3424Hnebmhlq [Moles/Vol]98 mmol/L95-114 [facility] Centererum or plasma creatine kinase MB (CKMB)/total creatine kinase (CK) ratio by calculaOrdered By: Kristal Goldberg on 09-27-2021 CK.MB Calc [Catalytic fraction]1.7 %0.00-2.50[facility] Serum or plasma creatine kinase MB measurement (mass/volume)Ordered By: Kristal Goldberg on 74-71-4391RP.MB [Mass/Vol]3.1 ng/mL0.6-6.3FLakeHealth TriPoint Medical Centererum or plasma glucose measurement (mass/volume)Ordered By: Kristal Goldberg on 58-27-4727Ppebjqg [Mass/Vol]94 mg/iX96-032TuwobcbszDetwiler Memorial HospitalComment on above:ADA recommended reference range Random Glucose Reference Range is dependent on time and content of last meal. Glucose of more than 200 mg/dL in a nonstressed, ambulatory subject supports the diagnosis of Diabetes Mellitus.ADA recommended reference rangeRandom Glucose Reference Range is dependent on time and content of last meal. Glucose of more than 200 mg/dL in a nonstressed, ambulatory subject supports the diagnosisof Diabetes Mellitus.Serum or plasma potassium measurement (moles/volume)Ordered By: Kristal Goldberg on 15-50-6821Uryoljtow [Moles/Vol]3.9 mmol/L3.5-5.1FLakeHealth TriPoint Medical Centererum or plasma sodium measurement (moles/volume)Ordered By: Kristal Goldberg on 71-22-2308Fijncx [Moles/Vol]135 mmol/C709-247MvbzymttxFirelands Regional Medical Centererum or plasma total bilirubin measurement (mass/volume) Ordered By: Kristal Goldberg on 46-10-5679Plvznihkw [Mass/Vol]0.8 mg/dL0.3-1.2 [facility] Centererum or plasma total carbon dioxide measurement (moles/volume)Ordered By: Kristal Goldberg on 11-77-2939YY5 [Moles/Vol]24.8 mmol/L22.0-30.0[facility] Centererum or plasma urea nitrogen measurement (mass/volume)Ordered By: Kristal Golbderg on 09-27-2021 Urea nitrogen [Mass/Vol]13 mg/dL9-23[facility] HospitalTROPONIN, HIGH SENSITIVITYon 68-04-4441FPREBX1.5 pg/mLNormal4.0-76.1[facility] Comment on above:Result Comment: CUT-OFF POINTS HAVE BEEN ESTABLISHED BASED ON THE FOURTH UNIVERSAL DEFINITIONS OF MYOCARDIAL INFARCTION. THE UPPER REFERENCE LIMIT (URL) OF TROPONIN, DEFINED THE 99TH PERCENTILE OF cTnI DISTRIBUTION IN A REFERENCE POPULATION, HAS BEEN CONFIRMED THE DECISION THRESHOLD FOR MS DIAGNOSIS.Performed By: #### CMP #### [facility] [address] [address] [address] Nilay Cacardiac [Mass/volume] in Serum or Plasma by High sensitivity methodOrdered By: Kristal Goldberg on 27-24-4869Ezzvpfsz I.cardiac High sensitivity method [Mass/Vol]< 3 pg/mL0-[facility] Urine appearanceOrdered By: Kristal Goldberg on 48-11-2824Ywvlhopkoo (U)Clear ClearDetwiler Memorial HospitalUrine colorOrdered By: Kristal Goldberg on 93-32-0934Xxquh (U)YellowYellowDetwiler Memorial HospitalUrine glucose measurement by automated test strip (mass/volume)Ordered By: Kristal Goldberg on 05-26-1176Eibnegu Auto test strip (U) [Mass/Vol]Normal mg/dLBethesda North HospitalUrine hemoglobin detection by automated test stripOrdered By: Kristal Goldberg on 38-40-3306Teqatboyoi Auto test strip Ql (U)Negative NegativeDetwiler Memorial HospitalUrine leukocyte esterase detection by automated test stripOrdered By: Kristal Goldberg on 77-33-1421Wzgdlnlwp esterase Auto test strip Ql (U)NegativeNegCleveland Clinic South Pointe HospitalUrine nitrite detection by automated test stripOrdered By: Kristal Goldberg on 82-16-3180Blggvvl Auto test strip Ql (U)NegativeNegCleveland Clinic South Pointe HospitalUrobilinogen Auto test strip (U) [Mass/Vol]Ordered By: Kristal Goldberg on 63-36-1156Dramwdsovgfs (U) [Mass/Vol]Normal mg/dLNoSt. Anthony's HospitalpH Auto test strip (U)Ordered By: Kristal Goldberg on 67-02-1165nW (U)1.005 [pH]1.001-1.030[facility] HospitalpH (U)5.5 [pH]5.0-9.0[facility] HospitalCT LUMBAR SPINE WO CONTRASTon 93-66-9261KK LUMBAR SPINE WO CONTRASTEXAMINATION: CT OF THE LUMBAR SPINE WITHOUT CONTRAST [...] Signed by: Mike Felipe MD 07/12/18 Final resultNoJoint Township District Memorial HospitalCT THORACIC SPINE WO CONTRASTon 35-13-6445MM THORACIC SPINE WO CONTRASTEXAMINATION: CT OF THE THORACIC SPINE WITHOUT CONTRAST [...] Signed by: Mike Felipe MD 07/12/18 Final resultDunlap Memorial Hospital Vital Signs Date TimeVital SignValuePerforming QfmyivdcaRngxwxir03-71-4037 12:46-0400 Diastolic blood bhboivzn66 mm[Hg]Meiaoju Work Phone: [facility]09-16-2025 12:46-0400Heart rate63 /min Chair Eric Work Phone: [facility]09-16-2025 12:46-0400Respiratory rate 18 /minChair Romero Work Phone: [facility]09-16-2025 12:46-6257ArT0% (BldA) [Mass fraction]98 %Chair Romero Work Phone: [facility]09-16-2025 12:46-0400Systolic blood ltpgolfy61 mm[Hg]Chair Romero Work Phone: [facility]09-16-2025 11:25-0400Body temperature 97.9 [degF]Chair Romero Work Phone: [facility]09-09-2025 09:35-0400Body yewunt095 cm Marina Hemmer PA Work Phone: [facility] HealthcareWjikgnwuoh83-37-3380 09:35-0400Body mass index (BMI) [Ratio]28.99 kg/n4Vqghu Hemmer PA Work Phone: [facility] HealthcareBsbuxwjczr11-58-7734 09:35-0400Body .42 kgKaren Hemmer PA Work Phone: [facility] HealthcareMsbouofjiq71-06-0730 09:35-0400Diastolic blood lpogagoc79 mm[Hg]Marina Hemmer PA Work Phone: [facility] HealthcareHdnvrcybkv92-54-9418 09:35-0400Heart rate65 /min Marina Hemmer PA Work Phone: [facility] HealthcareQhuheafeak73-62-1013 09:35-0400Respiratory rate16 /minKaren Hemmer PA Work Phone: noMer[facility] springfieldVctsurkyyw77-90-4194 09:35-1518CqQ7% (BldA) [Mass fraction]98 %Marina Hemmer PA Work Phone: noMercy hospital springfieldSkxysmdgnq69-22-0174 09:35-0400Systolic blood ajxhujpq528 mm[Hg]Marina Hemmer PA Work Phone: [facility] HealthcareQcyxozsxgc78-32-3882 13:03-0400Body agmixy660 cm Marina Hemmer PA Work Phone: [facility] HealthcareNutsacgijl53-78-0506 13:03-0400Body mass index (BMI) [Ratio]26.71 kg/u7Stfak Hemmer PA Work Phone: [facility] HealthcareHybgqirnml46-38-7491 13:03-0400Body .35 kgKaren Hemmer PA Work Phone: [facility] HealthcareDboplldmqo84-73-0486 13:03-0400Diastolic blood wubvmigv24 mm[Hg]Marina Hemmer PA Work Phone: [facility] HealthcareLvhmaaqvnp41-39-4384 13:03-0400Heart avdq311 /min Marina Hemmer PA Work Phone: [facility] HealthcareMacqmamkvo79-09-7202 13:03-1886ZdQ4% (BldA) [Mass fraction]97 %Marina Hemmer PA Work Phone: [facility] HealthcareHzvaouixbw39-26-8738 13:03-0400Systolic blood wsgatmng729 mm[Hg]Marina Hemmer PA Work Phone: [facility] HealthcareHowejkwsse04-80-7051 11:00-0400Body cm Marina Hemmer PA Work Phone: [facility] HealthcareRcikxyiezb72-61-4192 11:00-0400Body mass index (BMI) [Ratio]28.22 kg/d8Iaqgb Hemmer PA Work Phone: [facility] HealthcareUdocfftyxy90-24-9093 11:00-0400Body whxict35.7 kg Marina Hemmer PA Work Phone: [facility] HealthcareEpgodikejd99-55-6827 11:00-0400Diastolic blood cwgclwpo121 mm[Hg]Marina Hemmer PA Work Phone: [facility] HealthcareLpgehbmxcw75-82-4915 11:00-0400Heart rate83 /min Marina Hemmer PA Work Phone: [facility] HealthcareOdcjkjfxvk94-63-6843 11:00-0400Respiratory rate18 /minKaren Hemmer PA Work Phone: noMer[facility] hospital springfieldCjezrtyxpj59-22-0227 11:00-0205MvD7% (BldA) [Mass fraction]98 %Marina Hemmer PA Work Phone: noMercy hospital springfieldGapbxednwg25-42-8784 11:00-0400Systolic blood qogolywt985 mm[Hg]Marina Hemmer PA Work Phone: [facility] HealthcareNmydjafkwu50-20-2890 10:02-0500Body rxifro230 cm Marina Hemmer PA Work Phone: [facility] HealthcareDguyyionxi47-20-1284 10:02-0500Body mass index (BMI) [Ratio]29.99 kg/f0Sjlok Hemmer PA Work Phone: [facility] HealthcareMekszjstsb74-98-9566 10:02-0500Body jvhupw604.96 kgKeen Hemmer PA Work Phone: [facility] HealthcareOvkjxjliyd07-43-7766 10:02-0500Diastolic blood aoqqrbzb832 mm[Hg]Marina Hemmer PA Work Phone: [facility] HealthcareHihenfzurw91-94-2895 10:02-0500Heart rate87 /min Marina Hemmer PA Work Phone: [facility] HealthcareJfmrtakfby01-03-7257 10:02-0500Respiratory rate16 /minKeen Hemmer PA Work Phone: [facility] HealthcareIloxwscyct91-22-9200 10:02-9455UzT0% (BldA) [Mass fraction]98 %Marina Hemmer PA Work Phone: [facility] HealthcareJyzcybfvjl91-16-1577 10:02-0500Systolic blood fvszzjno910 mm[Hg]Marina Hemmer PA Work Phone: [employer] LtdMercy hospital springfieldOjxqyqoeog65-91-0985 08:48-0500Body cm Marina Hemmer PA Work Phone: [facility] HealthcareSvjwdkxhht03-97-2140 08:48-0500Body mass index (BMI) [Ratio]31.35 kg/r8Groyi Hemmer PA Work Phone: [facility] HealthcareOnfqfiwnij33-89-1731 08:48-0500Body .77 kgKeen Hemmer PA Work Phone: [facility] HealthcareUzeajbxysu34-63-0221 08:48-0500Diastolic blood rnbmseuy175 mm[Hg]Marina Hemmer PA Work Phone: [facility] HealthcareVenscyeqlb19-44-9812 08:48-0500Heart rate87 /min Marina Hemmer PA Work Phone: [address] [address]Legwaafpkv09-14-5748 08:48-0500Respiratory rate17 /minKeen Hemmer PA Work Phone: [address] [address]Zdhrbxsfss61-39-4232 08:48-0794AjD2% (BldA) [Mass fraction]98 %Marina Hemmer PA Work Phone: [address] [address]Rbfkzsmbsq40-04-8151 08:48-0500Systolic blood neyzketn055 mm[Hg]Marina Hemmer PA Work Phone: [address] [address]Glcvfmknrr65-35-6900 08:12-0500Body cm Delmy Boyle MD Work Phone: [facility]11-05-2024 08:12-0500Body mass index (BMI) [Ratio]30.39 kg/t2VbroxmDelmy Boyle MD Work Phone: [facility]11-05-2024 08:12-0500Body xdkbke116.4 kgDelmy Boyle MD Work Phone: [address] [address]-05-2024 08:12-0500Diastolic blood bbqayftw04 mm[Hg]Delmy Boyle MD Work Phone: [address] [address]-05-2024 08:12-0500Heart rate84 /min Delmy Boyle MD Work Phone: [facility]11-05-2024 08:12-0500Respiratory rate 18 /minDelmy Boyle MD Work Phone: [address] [address]-05-2024 08:12-0500Systolic blood eotzuncx785 mm[Hg]Delmy Boyle MD Work Phone: [facility]06-23-2024 12:40-0400Body fgxdfe867.5 cmMD Leydi Aceves Work Phone: 1(854)440-[facility]06-23-2024 12:40-0400 Body mass index (BMI) [Ratio]31.6 kg/m2MD Leydi Aceves Work Phone: 1(482)[address]06-23-2024 12:40-0400 Body jltroeettrz72.6 [degF]MD Leydi Aceves Work Phone: [phone]06-23-2024 12:40-0400 Body jeazql783.81 kgMD Leydi Aceves Work Phone: 1(140)[address]06-23-2024 12:40-0400 Heart rate84 /minMD Leydi Aceves Work Phone: 1([phone])[address]06-23-2024 12:40-0400 Respiratory rate18 /minMD Leydi Aceves Work Phone: 1(852)[address]06-23-2024 12:40-0400 SaO2% (BldA) [Mass fraction]97 %MD Leydi Aceves Work Phone: [facility]04-25-2024 14:34-0400 Body mass index (BMI) [Ratio]29.92 kg/f6ZhkerwDelmy Boyle MD Work Phone: [facility]04-25-2024 14:34-0400Body khzsvy670.69 kgDelmy Boyle MD Work Phone: [facility]04-25-2024 14:34-0400Diastolic blood nunvaoiy16 mm[Hg]Delmy Boyle MD Work Phone: [facility]04-25-2024 14:34-0400Heart rate89 /min Delmy Boyle MD Work Phone: [facility]04-25-2024 14:34-0400Respiratory rate 18 /minDelmy Boyle MD Work Phone: [facility]04-25-2024 14:34-2955HlT1% (BldA) [Mass fraction]100 %Delmy Boyle MD Work Phone: [facility]04-25-2024 14:34-0400Systolic blood vqbfaaet449 mm[Hg]Delmy Boyle MD Work Phone: [facility]11-03-2022 11:34-0400Body ufevfl97.79 kgDelmy Boyle MD Work Phone: [facility]11-03-2022 11:34-0400Diastolic blood xdfohbks55 mm[Hg]Delmy Boyle MD Work Phone: [facility]11-03-2022 11:34-0400Heart rate65 /min Delmy Boyle MD Work Phone: [facility]11-03-2022 11:34-0400Systolic blood bebliduw338 mm[Hg]Delmy Boyle MD Work Phone: [facility]10-12-2022 15:30-0400Diastolic blood rawjpzao46 mm[Hg]MD Leydi Aceves Work Phone: [facility]10-12-2022 15:30-0400 Heart rate70 /minMD Leydi Aceves Work Phone: [facility]10-12-2022 15:30-0400 Respiratory rate16 /minMD Leydi Aceves Work Phone: [facility]10-12-2022 15:30-0400 SaO2% (BldA) [Mass fraction]98 %MD Leydi Aceves Work Phone: [facility]10-12-2022 15:30-0400 Systolic blood bdcmcazy575 mm[Hg]MD Leydi Aceves Work Phone: [facility]10-12-2022 07:30-0400 Body apaxfdmorwn40 [degF]MD Rugen Livermore Work Phone: 1([phone])[address]10-10-2022 15:45-0400 Body .5 cmMD Rugchago Livermore Work Phone: 1(721)[address]10-10-2022 08:56-0400 Body akgann76.79 kgMD Rugchago Livermore Work Phone: 1(739)[address] [place], [place] [address]907-30-2022 21:38-0400 Heart rate68 /minMD Leydi Ketan Work Phone: 1(035)[address]07-30-2022 21:30-0400 Diastolic blood ollpjcbo45 mm[Hg]MD Leydi Aceves Work Phone: 1(542)[address]07-30-2022 21:30-0400 Respiratory rate20 /minMD Rugchago Ketan Work Phone: 1(795)[address] [place], [place] 57[address]907-30-2022 21:30-0400 SaO2% (BldA) [Mass fraction]100 %MD Leydi Aceves Work Phone: 1(910)[address]07-30-2022 21:30-0400 Systolic blood cdiqglwb433 mm[Hg]MD Leydi Aceves Work Phone: 1(137)[address]07-30-2022 18:31-0400 Body sxjvih372.5 cmMD Rugchago Livermore Work Phone: 1(493)[address] [place], [place] 57[address]907-30-2022 18:31-0400 Body cxcnmzfyuxm93 [degF]MD Leydi Aceves Work Phone: 1([phone])[address]07-30-2022 18:31-0400 Body rsexye77.79 kgMD Rugchago Ketan Work Phone: [phone] [place] [address] Encounters Encounter DateEncounter TypeCare ProviderFacilityStart: 12-12-2024 End: 56-68-4143zmuuqolqvgBDUOFW D MANZONFacility:[facility] Hospital[facility]: 12-11-2024 End: 65-57-9498firrglfpruOCKUB MABALAY ALDAFacility:[facility] Start: 12-05-2024 End: 12-52-9927NsaiwnVixaw M Hemmer PA Work Phone: NOKJ [facility] BerrieneComment on above:Rheumatoid arthritis involving multiple sites with positive rheumatoid factor (HCC)Start: 11-28-2024 End: 04-14-6297Vyfpiwuud Result EncounterGeneric External Data ProviderNOMS External Department UnsolicitedStart: 11-28-2024 End: 70-35-0257Ifkremmzj Result EncounterGeneric External Data ProviderNOMS External Department UnsolicitedStart: 11-28-2024 End: 51-21-9829meoubyrbznTKEMLP D MANZONFacility:[facility] Hospitaltart: 11-27-2024 End: 11-02-5717ongqdpdzgbOKPMX MABALAY ALDAFacility:[facility] Start: 11-27-2024 End: 78-15-2480Gputezwxo Result EncounterGeneric External Data ProviderNOMS External Department UnsolicitedStart: 11-27-2024 End: 33-22-2322Jkbrffawb Result EncounterGeneric External Data ProviderNOMS External Department UnsolicitedStart: 11-14-2024 End: 99-51-9879hgwinsxkqeWfqtt 9 Eric Work Phone: Hematology/OncologyComment on above: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)Start: 11-13-2024 End: 02-42-0453ormdaebbbxRHWGY MABALAY ALDAFacility:[facility] Start: 11-13-2024 End: 43-51-2615Ztokkyjws Result EncounterGeneric External Data ProviderNOMS External Department UnsolicitedStart: 11-13-2024 End: 85-98-1333Grtjtbpek Result EncounterGeneric External Data ProviderNOMS External Department UnsolicitedStart: 11-13-2024 End: 58-03-0549Ifbsbvswv Julia Covarrubias RNHematology/OncologyComment on above:Patient Update; Results (Uric Acid )Start: 11-08-2024 End: 64-93-3736Iaoyehxyv encounterLesia Covarrubias RNHematology/OncologyComment on above:Orders (Krystexxa Orders)Start: 11-07-2024 End: 21-81-3260Iyzmnc Kristy MARINELLI Work Phone: NOUX [facility] MedinceStart: 11-07-2024 End: 63-58-8445Hmtggw Kristy MARINELLI Work Phone: NOYE [facility]erson [facility] MedinceStart: 11-07-2024 End: 70-28-4424Deawsy outpatient visit 15 Lyla Rees PA Work Phone: NOWO [facility] MedinceComment on above:Essential hypertension (Primary Dx); Rheumatoid arthritis involving multiple sites with positive rheumatoid factor (HCC)Start: 11-07-2024 End: 72-42-7970kydckhzljvFMVRI M HEMMERNot AvailableStart: 11-03-2024 End: 36-39-3457hmwmptherdZtxpcu D Manzon MD Work Phone: RheumatologyStart: 11-03-2024 End: 54-22-7070Moxuzni encounter procedureDelmy Boyle MD Work Phone: RheumatologyComment on above:ReplyStart: 11-02-2024 End: 93-78-3581bcmulxldezFakkoj D Manzon MD Work Phone: RheumatologyStart: 11-02-2024 End: 08-19-7172Slvghbc encounter procedureDelmy Boyle MD Work Phone: RheumatologyComment on above:MedicationStart: 10-10-2024 End: 59-41-6474xuhrsqlalfQZXIAA D MANZONFacility:[facility] HospitalStart: 10-10-2024 End: 20-21-9571Kqznykduo Result EncounterGeneric External Data ProviderNOMS External Department UnsolicitedStart: 10-10-2024 End: 04-99-2530Zembqkktr Result EncounterGeneric External Data ProviderNOMS External Department UnsolicitedStart: 10-03-2024 End: 12-90-9666Mkjiqwgov Erick Boyle MD Work Phone: RheumatologyComment on above:Insurance Authorization ([employer])Start: 10-03-2024 End: 47-02-4421jtersejnhhILAFOU D MANZONFacility:[facility] Hospitaltart: 10-02-2024 End: 93-21-4758Ihbizhklz Result EncounterGeneric External Data ProviderNOMS External Department UnsolicitedStart: 10-02-2024 End: 07-76-2867Llsluxseb Result EncounterGeneric External Data ProviderNOMS External Department UnsolicitedStart: 10-02-2024 End: 93-21-8873SpxrxkVrsmc M Hemmer PA Work Phone: NOMS [facility] MedinceComment on above:Rheumatoid arthritis involving multiple sites with positive rheumatoid factor (HCC)Start: 09-16-2024 End: 29-13-1714SdkklbTheos M Alda MD Work Phone: NOMS CI FMComment on above:Rheumatoid arthritis involving multiple sites with positive rheumatoid factor (HCC)Start: 09-13-2024 End: 38-81-2348Oqmvqa outpatient visit 15 minutesMarina MARINELLI Work Phone: NOM[facility] CI FMComment on above:Open wound of left lower leg, subsequent encounter (Primary Dx); Encounter for removal of suturesStart: 09-13-2024 End: 41-07-7208spswfyewucTIYJK M HEMMERNot AvailableStart: 09-04-2024 End: 33-76-6665YoindbMmhte M Hemmer PA Work Phone: [facility] CI FMComment on above:Rheumatoid arthritis involving multiple sites with positive rheumatoid factor (HCC)Start: 08-07-2024 End: 75-95-7266Qfizsfbry MARINELLI Work Phone: [facility] CI FMStart: 08-07-2024 End: 57-41-4112Apppgpbry MARINELLI Work Phone: [facility] CI FMStart: 08-07-2024 End: 02-85-4385Vuwjit outpatient visit 25 minutesMarina MARINELLI Work Phone: [facility] CI FMComment on above: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) (Primary Dx); Other chronic pain; Essential hypertension (CMS/HCC)Start: 08-07-2024 End: 34-50-4499dinprhkospLXFAQ M HEMMERNot AvailableStart: 07-30-2024 End: 92-48-8589Gbpaqjhar Result EncounterGeneric External Data ProviderNOMS External Department UnsolicitedStart: 07-30-2024 End: 17-86-2630Sorlneogy Result EncounterGeneric External Data ProviderNOMS External Department UnsolicitedStart: 07-29-2024 End: 55-55-8323Ojsptpvsv Result EncounterGeneric External Data ProviderNOMS External Department UnsolicitedStart: 07-29-2024 End: 67-58-6614Mnwzcnbjp Result EncounterGeneric External Data ProviderNOMS External Department UnsolicitedStart: 07-26-2024 End: 91-17-7764YyrkdoIzscc M Hemmer PA Work Phone: [facility] CI FMComment on above: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)Start: 07-11-2024 End: 20-96-9870RivnnlVmina M Hemmer PA Work Phone: [facility] CI FMComment on above: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)Start: 07-07-2024 End: 74-22-1134LrubokYqdhk M Hemmer PA Work Phone: [facility] CI FMComment on above: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)Start: 07-03-2024 End: 32-74-5364ArakqiXbsqj M Hemmer PA Work Phone: [facility] CI FMComment on above: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)Start: 06-28-2024 End: 00-95-8438XpqclxXjgpq M Alda MD Work Phone: [facility] CI FMComment on above: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)Start: 06-26-2024 End: 72-37-0761XzrwmiJklcw M Hemmer PA Work Phone: NOMS POPULATION HEALTHComment on above: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)Med RefillStart: 06-19-2024 End: 49-92-4688PetpsxGvbxv M Hemmer PA Work Phone: [facility] CI FMComment on above: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)Start: 06-12-2024 End: 97-96-6928CddazbSkkdq M Hemmer PA Work Phone: [facility] CI FMComment on above: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)Start: 06-05-2024 End: 65-26-3856UkmofrZmdoh M Hemmer PA Work Phone: [facility] CI FMComment on above: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)Start: 05-30-2024 End: 58-06-8256ArkrvgNsnph M Alda MD Work Phone: [facility] CI FMComment on above: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)Start: 05-29-2024 End: 74-22-4513UgkmreDvjmp M Hemmer PA Work Phone: [facility] CI FMComment on above: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)Start: 05-18-2024 End: 51-83-2485Lpwiql Kristy MARINELLI Work Phone: [facility] CI FMStart: 05-18-2024 End: 42-92-9095Ercozo Kristy MARINELLI Work Phone: [facility] CI FMStart: 05-18-2024 End: 28-87-4216Yrigaztnk Result Augustine MARINELLI Work Phone: [facility] External Department UnsolicitedStart: 05-18-2024 End: 46-44-4228wpwenxyeenPGLSA M HEMMERNot AvailableStart: 05-10-2024 End: 77-47-8859TbgejtBzqks M Hemmer PA Work Phone: [facility] CI FMComment on above:Abscess of right index fingerStart: 05-02-2024 End: 59-35-8757OalbwnRvjvu M Alda MD Work Phone: [facility] CI FMComment on above: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)Start: 04-25-2024 End: 17-41-5840DcbimeOcvlv M Hemmer PA Work Phone: [facility] CI FMComment on above:Abscess of right index fingerStart: 04-20-2024 End: 85-69-1933Khklmb Kristy Rees PA Work Phone: [facility] CI FMStart: 04-20-2024 End: 69-04-2923Nimeqn Kristy Rees PA Work Phone: [facility] CI FMStart: 04-20-2024 End: 54-07-1195Qugbie outpatient visit 25 minutesMarina MARINELLI Work Phone: [facility] CI FMComment on above:Essential hypertension (CMS/HCC) (Primary Dx); Abscess of right index fingerStart: 04-20-2024 End: 83-58-2530pfxpahqlmcCHJWH M HEMMERNot AvailableStart: 02-02-2024 End: 81-63-4798EsbpmlSbrzm M Hemmer PA Work Phone: [facility] CI FMComment on above: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)Start: 01-25-2024 End: 37-37-5012WvcnrqZnemz M Hemmer PA Work Phone: [facility] CI FMComment on above: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)Start: 01-21-2024 End: 63-30-3924Koyguh outpatient visit 25 minutesMarina MARINELLI Work Phone: [facility] CI FMComment on above: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) (Primary Dx); Essential hypertension (CMS/HCC)Start: 01-21-2024 End: 74-16-9037bcqqtjnszqRQVSZ M HEMMERNot AvailableStart: 01-18-2024 End: 80-98-3350Iaxydrinv encounterLeydi Aceves MD Work Phone: noMS CI FMStart: 01-07-2024 End: 00-27-3137XazfhcTvxfk M Hemmer PA Work Phone: noms CI FMComment on above: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)Start: 01-04-2024 End: 89-68-9105Foxrhbjhp encounterDelmy Boyle MD Work Phone: RheumatologyStart: 01-04-2024 End: 68-13-5161Plbiuapcjx hospital visit by physicianXr [facility] Work Phone: [facility] Radiology GeneralComment on above: 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]Start: 01-04-2024 End: 52-86-6866dleyjazuhxNNPAGV D MANZONFacility:[facility] Hospitaltart: 01-04-2024 End: 72-08-6327Stwftwh encounter procedureDelmy Boyle MD Work Phone: RheumatologyComment on above:Chronic tophaceous gout (Primary Dx); Stage 3 chronic kidney disease, unspecified whether stage 3a or 3b CKD (HCC); Encounter for long-term (current) use of medications; Other secondary osteoarthritis of multiple sitesStart: 12-30-2023 End: 05-42-2051tjgazetmvdQZFADB D MANZONFacility:[facility] Hospitaltart: 12-30-2023 End: 09-45-6497Imrvvpvwb Result EncounterGeneric External Data ProviderNOMS External Department UnsolicitedStart: 12-30-2023 End: 61-87-9851Ebxaevszn Result EncounterGeneric External Data ProviderNOMS External Department UnsolicitedStart: 12-10-2023 End: 98-71-5253WzjhfjFimrnNargis MARINELLI Work Phone: NOMS CI FMComment on above:Rheumatoid arthritis involving multiple sites with positive rheumatoid factor ([facility])Start: 12-07-2023 End: 04-99-7845BbuhvyIkvur M Alda MD Work Phone: NOMS CI FMComment on above:AnxietyStart: 11-11-2023 End: 63-36-8671ZyvbeaCuqww M Alda MD Work Phone: NOMS CI FMComment on above:Rheumatoid arthritis involving multiple sites with positive rheumatoid factor ([facility])Start: 11-08-2023 End: 11-16-7142EfkybqIgena M Alda MD Work Phone: NOMS CI FMComment on above:AnxietyStart: 08-22-2023 End: 96-90-9940atnzwktkjrBA Leydi Aceves Work Phone: [facility] Work Phone: Start: 08-22-2023 End: 46-01-9274Ozpqttl encounter procedureMD Leydi Aceves Work Phone: [facility] [place] Work Phone: Start: 72-92-5878UjxiplOydrfo D Manzon MD Work Phone: RheumatologyComment on above:Refill RequestStart: 08-97-8793Tencqxopcp RecurringMD Leydi Aceves Work Phone: [facility]- CredibleStart: 18-26-7069rlnggvhxmfQvkbxckglco AbdelazizFacility:[facility] Centertart: 59-82-4532lkvagfassjBagzar D Manzon MD Work Phone: RheumatologyStart: 91-35-1878Hsperip encounter procedureDelmy Boyle MD Work Phone: RheumatologyComment on above:Flare upStart: 07-05-2023 RefillDelmy Boyle MD Work Phone: RheumatologyComment on above:Refill RequestStart: 06-24-2023 End: 63-60-2161Qlpxmzt encounter procedureDelmy Boyle MD Work Phone: RheumatologyComment on above:Chronic tophaceous gout (Primary Dx); Encounter for long-term (current) use of medications; Stage 3 chronic kidney disease, unspecified whether stage 3a or 3b CKD (HCC); Idiopathic chronic gout of multiple sites with tophusStart: 05-09-2023 End: 54-83-8135jimezwsuvrBuesgszpffc AbdelazizFacility:[facility] Centertart: 79-68-2660TfueejVndei M Alda MD Work Phone: NOMD CI FMStart: 02-24-2023 End: 51-78-7196Qzvwrngiq department patient visitKaylrilamar [facility]Fac[facility] Start: 02-19-2023 End: 35-66-3308hegelkiuskEUFZCT [facility]tart: 37-18-9790xctmabbmndQadoyk D Manzon MD Work Phone: RheumatologyComment on above:PrednisoneStart: 38-11-3312I-mail encounter from caregiverDelmy Boyle MD Work Phone: [facility] FHCStart: 14-03-9847Epexzsgdm encounterDelmy Boyle MD Work Phone: [facility] Rhe[facility] InstituteComment on above:Patient RequestStart: 07-24-2022 End: 32-99-5063dabvlnxpuuARMVZE DIAB .Facility:K0Yavrj: 06-28-2022 End: 80-70-1347lqmizuzdyrSQDKNP LIBERTAD .Facility:H6Owkra: 84-20-5259Ngqspm Delmy Boyle MD Work Phone: RheumatologyComment on above:Refill RequestStart: 06-20-2022 End: 13-51-5816kogvzrbkcmTV KIRT ZAMBRANO .Facility:G7Ouwkc: 05-31-2022 End: 91-86-8891xqsowkxlkkLV RUGEN ALDAFacility:J7Auizp: 60-81-5176XgtrpvWeltaj D Manzon MD Work Phone: RheumatologyComment on above:Refill RequestStart: 03-31-2022 End: 31-35-8006rfhlidwlrsLG RUGEN ALDAFacility:R0Kyqkj: 01-31-2022 End: 22-90-1058cawvyweeuaST RUGEN ALDAFacility:L3Vfhki: 01-14-2022 End: 77-01-9705uekkhzmpqbIF RUGEN ALDAFacility:K7Kdzli: 01-01-2022 End: 81-38-7449Xotatpr encounter procedureDelmy Boyle MD Work Phone: RheumatologyComment on above: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); Encounter for long-term (current) use of medications; Stage 3 chronic kidney disease, unspecified whether stage 3a or 3b CKD (HCC) Start: 61-55-7358DogquoIzglgu D Manzon MD Work Phone: RheumatologyComment on above:Refill RequestStart: 12-07-2021 End: 14-56-5236Xxufalpena and management of inpatientMD Leydi Aceves Work Phone: [facility]-1 SouthStart: 12-06-2021 End: 83-85-3005wjbmdqapkaWW RUGEN ALDAFacility:S1Rooml: 10-19-2021 End: 96-21-3676fheossdgakOADEKD RODRIGUEZ .Facility:A7Wmoqv: 09-27-2021 End: 45-34-3721Krhznbgko department patient visitMD Leydi Aceves Work Phone: [facility]-Emergency RoomStart: 09-27-2021 End: 54-44-4955trfalqjtsfKHSPKF LIBERTAD .Facility:O7Zsuaf: 19-89-2586Jwxkbs OnlyDelmy Boyle MD Work Phone: RheumatologyComment on above:Idiopathic chronic gout of multiple sites with tophusStart: 07-12-2018 End: 18-86-9352Fhidtptbe department patient visitLEYDI OSORIOOhioHealth Nelsonville [facility] Procedures DateProcedureProcedure DetailPerforming ClinicianStart: 86-50-1822NDQ URATE SERPL-MCNCGeneric External Data ProviderStart: 22-38-5443GOH URATE SERPL-MCNC Generic External Data ProviderStart: 74-61-9255NFI CBC W AUTO DIFF BLDGeneric External Data ProviderStart: 60-28-6631BGX HGB BLD-MCNCGeneric External Data ProviderStart: 73-44-3473LWP CBC W AUTO DIFF BLDGeneric External Data Provider Start: 07-30-2024E COLI SHIGA TOXIN EIAGeneric External Data ProviderStart: 72-34-9862HXTFELAQLO/SHIGELLA SCREENGeneric External Data ProviderStart: 43-99-9456GKSKD CULTURE 2Generic External Data ProviderStart: 05-98-4014CQKJT CULTURE 1Generic External Data ProviderStart: 32-75-8867LSC CBC WITH AUTO DIFF Marina MARINELLI Work Phone: Start: 78-57-2222Ziudw foot complete minimum 3 views Delmy Boyle MD Work Phone: Start: 27-31-4373JLV CBC W AUTO DIFF BLDGeneric External Data ProviderStart: 41-20-7955Eqnnr depression screening assessment Delmy Boyle MD Work Phone: Start: 92-25-4494Tb lumbar spine w/o contrast material RUGEN ALDAStart: 38-66-4282Un thoracic spine w/o contrast materialRUGEN KETAN Plan of Treatment DateCare ActivityDetailAuthorStart: 09-75-6961Lsusp microalbumin profile [facility] ClinicStart: 16-67-8816Ndzvrkzdjl measurementSerum CreatinineWashington ClinicStart: 42-80-3406Whfnajwhvx measurementSerum CreatininePaulding County Hospital Start: 01-09-2025 End: 80-56-2610Jneeala encounter fudotcsrb72/11/2025 4:00 PM EST Office Visit Rheumatology [address] [place] [address] [place] [address] [place] [address] FU 3 MON AT 11:40 , 4 OR 4:30 slots . ThxRheumatologyComment on above:FU 3 MON AT 11:40 , 4 OR 4:30 slots . ThxStart: 98-92-2282Jcnpznwxik measurementSerum CreatinineMercy Healthtart: 12-26-2024 End: 06-75-5590hdpegsomhgAnvzykiqcn/OncologyComment on above:KRYSTEXXAStart: 12-12-2024 End: 42-07-6801vwnxkicvzsLmplkgvalt/OncologyComment on above:KRYSTEXXAStart: 11-28-2024 End: 20-86-3741abtstranpoZbvluqlvid/OncologyComment on above:KRYSTEXXAStart: 11-17-2024 End: 07-94-2569gdkxvldvbq28/19/2025 10:00 AM EDT [facility] Hematology/Oncology [address] [place] [address] Eric, Chair [address] [place] [address] [place] [address] KRYSTEXXAHematology/OncologyComment on above:KRYSTEXXAStart: 11-16-2024 End: 38-16-8212Hjstomn encounter aowdqulol33/18/2025 10:00 AM EDT Office Visit [facility] [address] [facility] [place] [address] labNortHawthorn Center LaboratoryComment on above:labStart: 11-14-2024 End: 45-19-5793fbkgcgarpoMejzqzhdfo/OncologyComment on above:KRYSTEXXAStart: 11-07-2024 End: 68-81-2251Fyoexxh encounter hvsxlyhrl96/09/2025 9:30 AM EDT [facility] [place] [facility] [address] [facility] [[email or web address]] [address] [place] [id number] Marina Rees PA [address] [facility] [address] [place] [address] Real Burnett MedinceComment on above:ArrivedStart: 20-53-6900Vrzhuvdnz vaccinationSTEWARD HEALTH CARE SYSTEM HealthcareStart: 10-03-2024 End: 09-14-5774Eugapud encounter iidsgzvyb04/05/2025 8:00 AM EDT Office Visit Rheumatology [address] [place] [address] [place] [address] [place] [address] Return in about 9 months (around 10/03/2024).Rheumatology Comment on above:Return in about 9 months (around 10/03/2024).Start: 09-25-2024 End: 99-66-8230Pfpwwze aminotransferase [Enzymatic activity/volume] in Serum or PlasmaALANINE AMINOTRANSFERASE / SGPT Lab Routine Chronic tophaceous gout Encounter for long-term (current) use of medications Expected: 09/25/2024 (Approximate), Expires: 12/25/2024leveland ClinicComment on above:Expected: 09/25/2024 (Approximate), Expires: 12/25/2024Start: 09-25-2024 End: 88-87-8614Txgfcld [Mass/volume] in Serum or PlasmaALBUMIN Lab Routine Chronic tophaceous gout Encounter for long-term (current) use of medications Exp ected: 09/25/2024 (Approximate), Expires: 12/25/2024[facility] ClinicComment on above:Expected: 09/25/2024 (Approximate), Expires: 12/25/2024Start: 09-25-2024 End: 32-30-0040Xpcmrhnyd aminotransferase [Enzymatic activity/volume] in Serum or PlasmaASPARTATE AMINOTRANSFERASE/SGOT Lab Routine Chronic tophaceous gout Encounter for long-term (current) use of medications Expected: 09/25/2024 (Approximate), Expires: 12/25/2024[facility] ClinicComment on above:Expected: 09/25/2024 (Approximate), Expires: 12/25/2024Start: 09-25-2024 End: 12-25-2024 reactive protein [Mass/volume] in Serum or PlasmaC-REACTIVE PROTEIN Lab Routine Chronic tophaceous gout Encounter for long-term (current) use of medications Expected: 09/25/2024 (Approximate), Expires: 12/25/2024 [facility] HospitalComment on above:Expected: 09/25/2024 (Approximate), Expires: 12/25/2024Start: 09-25-2024 End: 91-09-2116YNH W Auto Differential panel - BloodCOMPLETE BLOOD COUNT AND DIFFERENTIAL Lab Routine Chronic tophaceous gout Encounter for long-term (c urrent) use of medications Expected: 09/25/2024 (Approximate), Expires: 12/25/2024[facility] ClinicComment on above:Expected: 09/25/2024 (Approximate), Expires: 12/25/2024Start: 09-25-2024 End: 43-20-8268JVLRNILKNW BLDCREATININE BLD Lab Routine Chronic tophaceous gout Encounter for long-term (current) use of medications Expected: 09/25/2024 (Approximate), Expires: 12/25/2024[facility] ClinicComment on above:Expected: 09/25/2024 (Approximate), Expires: 12/25/2024Start: 09-25-2024 End: 93-46-4834Tfwfefcgbgu sedimentation rateSEDIMENTATION RATE, WESTERGREN Lab Routine Chronic tophaceous gout Encounter for long-term (current) use of medications Expected: 09/25/2024 (Approximate), Expires: 12/25/2024leveland ClinicComment on above:Expected: 09/25/2024 (Approximate), Expires: 12/25/2024 Start: 09-25-2024 End: 38-32-9286Ntipu [Mass/volume] in Serum or PlasmaURIC ACID Lab Routine Chronic tophaceous gout Encounter for long-term (current) use of medications E xpected: 09/25/2024 (Approximate), Expires: 5C[facility] ClinicComment on above:Expected: 09/25/2024 (Approximate), Expires: 12/25/2024Start: 08-07-2024 End: 70-57-6708Xevuylx encounter procedureNOMS CI FMComment on above:Arrived Start: 05-18-2024 End: 31-63-6595Ypzowza encounter mrefyvaxn92/20/2025 9:00 AM EDT Office Visit NOMS CI FM [address] [place] [address] [place] [address] Marina Rees PA [address] [place] [address] [place] [address] ArrivedNOMS CI FMComment on above:ArrivedStart: 04-20-2024 End: 77-27-6116MQNKZYBNTPY WOUND (HTRX)SUPERFICIAL WOUND (HTRX) Lab Routine Abscess of right index finger Expected: 04/20/2024 (Approximate), Expires: 04/20/2025[facility] Work Phone: Comment on above:Expected: 04/20/2024 (Approximate), Expires: 04/20/2025Start: 04-20-2024 End: 18-64-1479Nuozbun encounter uggifqnof01/20/2025 10:00 AM EST Office Visit [facility] CI FM [address] [place] [address] [place] [address] Marina Rees PA [address] [place] [address] [place] [address] ArrivedNOMS CI FMComment on above:ArrivedStart: 68-40-0891Qtceutcdnl measurementSerum CreatinineMercy Health St. [facility] Warren Hospitalveland ClinicStart: 01-21-2024 End: 30-12-2592Elyxwqj encounter cnqukyjzu98/22/2024 9:00 AM EST Office Visit [facility] CI FM [address] [place] [address] [place] [address] Marina Rees PA [address] [place] [address] [place] [address] NOMS CI FMStart: 01-17-2024 End: 65-31-9116Pacnkox encounter zcymymbqo60/18/2024 9:15 AM EST Office Visit Orthopaedics [address] [place] [address] [place] [address] [place] [address] 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] OrthopaedicsComment on above: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]Start: 01-11-2024 End: 17-39-2362Uqtneea encounter jidyosplb26/12/2024 11:00 AM EST Office Visit NOMS CI [address] [facility] [[email or web address]] [address] [place] [id number] Leydi Aceves MD [address] [facility] [address] [place] [address] NOMS CI FMStart: 01-04-2024 End: 37-99-9438Xgkvrjt encounter jtxulknwp97/05/2024 8:20 AM EST Office Visit Rheumatology [address] [place] [address] [place] [address] [place] [address] FU 6-7 MON WITH MDRheumatologyComment on above:FU 6-7 MON WITH MDStart: 60-89-3458Uxukr-19 Vaccine ( season)Covid-19 Vaccine ( season)[facility]: 14-17-5606Twvmsbfhb vaccination [facility]: 09-24-2023 End: 72-39-9618Brikhcm encounter rcqorojgx97/26/2024 8:00 AM EDT Office Visit Rheumatology [address] [place], [place] [id number] Kelly Martell, EFFERVESCENT SALTS COMPOUNDER.SUPERIOR COURT CLERK [address] [facility] [place], [place] [id number] FU 3-4 MON WITH APPRheumatologyComment on above:FU 3-4 MON WITH APPStart: 65-75-5053Cvttvvbbq vaccinationInfluenza Vaccine (#1)NOMS HealthcareComment on above:Postponed from 10/30/2022 (Other Patient Reasons) Start: 92-56-5361Fugan CreatinineSerum CreatinineMercy Healthtart: 65-15-7701Qjtnigkmnx Health ScreeningBehavioral Health ScreeningPaulding County Hospital Start: 68-10-0493RQ CONTROLLED (<130/80)BP CONTROLLED (<130/80)[facility] Start: 83-97-1601Agjfh-19 Vaccine ()Covid-19 Vaccine ()[facility]: 11-71-5532Aqlpmkctx vaccinationMercy Healthtart: 07-13-2022 End: 04-06-8051Brefebm aminotransferase [Enzymatic activity/volume] in Serum or PlasmaALT/SGPT Lab 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 Encounter for long-term (current) use of medications Expected: 07/13/2022 (Approximate), Expires: 09/12/2022[facility] Work Phone: Comment on above:Expected: 07/13/2022 (Approximate), Expires: 09/12/2022Start: 07-13-2022 End: 25-34-2801Gaiodnl [Mass/volume] in Serum or PlasmaALBUMIN BLD Lab 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 Encounter for long-term (current) use of medications Expected: 07/13/2022 (Approximate), Expires: 09/12/2022[facility] Work Phone: Comment on above:Expected: 07/13/2022 (Approximate), Expires: 09/12/2022Start: 07-13-2022 End: 39-44-2155Eluykthph aminotransferase [Enzymatic activity/volume] in Serum or PlasmaAST/SGOT BLD Lab 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 Encounter for long-term (current) use of medications Expected: 07/13/2022 (Approximate), Expires: 09/12/2022[facility] Work Phone: Comment on above:Expected: 07/13/2022 (Approximate), Expires: 09/12/2022Start: 07-13-2022 End: 09-12-2022 reactive protein [Mass/volume] in Serum or PlasmaC-REACTIVE PROTEIN (CRP) Lab 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 Encounter for long-term (current) use of medications Expected: 07/13/2022 (Approximate), Expires: 09/12/2022[facility] Work Phone: Comment on above:Expected: 07/13/2022 (Approximate), Expires: 09/12/2022Start: 07-13-2022 End: 64-16-7496STZ W Auto Differential panel - BloodCBC + DIFF Lab 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 Encounter for long-term (current) use of medications Expected: 07/13/2022 (Approximate), Expires: 09/12/2022[facility] Work Phone: Comment on above:Expected: 07/13/2022 (Approximate), Expires: 09/12/2022Start: 07-13-2022 End: 20-53-3955KUWUWYAWLD BLDCREATININE BLD Lab 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 Encounter for long-term (current) use of medications Expected: 07/13/2022 (Approximate), Expires: 09/12/2022[facility] Work Phone: Comment on above:Expected: 07/13/2022 (Approximate), Expires: 09/12/2022Start: 07-13-2022 End: 47-75-0669Hivupcpokjg sedimentation rateSED RATE WESTERGREN Lab 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 Encounter forlong-term (current) use of medications Expected: 07/13/2022 (Approximate), Expires: 09/12/2022[facility] Work Phone: Comment on above:Expected: 07/13/2022 (Approximate), Expires: 09/12/2022Start: 07-13-2022 End: 63-66-6413Xfcdh [Mass/volume] in Serum or PlasmaURIC ACID BLOOD Lab Routine Idiopathic chronic gout of multiple sites with [facility] Encounter for long-term (current) use of medications Expected: 07/13/2022 (Approximate), Expires: 09/12/2022[facility] Work Phone: Comment on above:Expected: 07/13/2022 (Approximate), Expires: 09/12/2022Start: 82-33-2503KZCIN CREATININESERUM CREATININEMercy Healthtart: 65-11-1565SLAAUXCGFM ASSESSMENTDEPRESSION ASSESSMENTMercy Healthtart: 34-95-9563XdblizlxtFirelands Regional Medical Centertart: 12-07-2021 Hospital admissionFirelands Regional Medical Centertart: 32-43-4076Xkpcyfra to Social ServicesFirelands Regional Medical Centertart: 37-46-5924Rdqfdxdzn vaccinationMercy Healthtart: 32-66-4611Iapqb depression screening assessmentDEPRESSION SCREENINGMercy Healthtart: 16-28-0781SWFATCTUWN ASSESSMENTDEPRESSION ASSESSMENTMercy Healthtart: 89-77-1307BZJ Vaccine (1 - 3-dose SCDM series)HPV Vaccine (1 - 3-dose SCDM series)[facility]: 76-21-7681Kmbktrcda B Vaccine (1 of 3 - 19+ 3-dose series)Hepatitis B Vaccine (1 of 3 - 19+ 3-dose series)[facility]: 45-87-0625Pyfuuomotttt vaccinationPneumococcal Vaccine (1 of 2 - PCV)[facility]: 2009 Shingrix Vaccine (1 of 2)Shingrix Vaccine (1 of 2)[facility]: 67-12-9291MWUQKH PCP TEAM CHRONIC DISEASE VISITANNUAL PCP TEAM CHRONIC DISEASE VISITMercy Healthtart: 40-44-8137Lfidblp ScreeningAnxiety Screening [facility]: 33-88-9413AG CONTROLLED (<130/80)BP CONTROLLED (<130/80) [facility]: 99-95-2485Ohycckfnqe ScreeningDepression Screening [facility]: 05-06-3137EKU SCREENINGHIV SCREENINGPaulding County Hospital Start: 50-47-6847AXV screeningHIV ScreeningMercy Healthtart: 1995 COVID-19 VACCINE (#1)COVID-19 VACCINE (#1)[facility]: 1990 COVID-19 VACCINE (#1)COVID-19 VACCINE (#1)[facility]: 1990 HEPATITIS B (1 of 3 - 3-dose series)HEPATITIS B (1 of 3 - 3-dose series) [facility]: 51-99-8493Loqitxcnj B Vaccine (1 of 3 - 3-dose series) Hepatitis B Vaccine (1 of 3 - 3-dose series)[facility] End: 45-05-0261Kfzcgjg aminotransferase [Enzymatic activity/volume] in Serum or PlasmaALANINE AMINOTRANSFERASE / SGPT Lab Routine Chronic tophaceous gout Encounter for long-term (current) use of medications Every 3 months for 5 Occurrences starting 06/24/2023 until 06/23/2024leveland ClinicComment on above:Every 3 months for 5 Occurrences starting 06/24/2023 until 06/23/2024 End: 05-94-1331Rraxahf [Mass/volume] in Serum or PlasmaALBUMIN Lab Routine Chronic tophaceous gout Encounter for long-term (current) use of medications Kamila ry 3 months for 5 Occurrences starting 06/24/2023 until 06/23/2024[facility] ClinicComment on above:Every 3 months for 5 Occurrences starting 06/24/2023 until 06/23/2024 End: 93-15-8769Abwgyzwun aminotransferase [Enzymatic activity/volume] in Serum or PlasmaASPARTATE AMINOTRANSFERASE/SGOT Lab Routine Chronic tophaceous gout Encounter for long-term (current) use of medications Every 3 months for 5 Occurrences starting 06/24/2023 until 06/23/2024[facility] Work Phone: Comment on above:Every 3 months for 5 Occurrences starting 06/24/2023 until 06/23/2024LOOD CULTURE 1BLOOD CULTURE 1 Lab Routine 07/29/2024 10:00 PM EDTNOMS HealthcareBLOOD CULTURE 2BLOOD CULTURE 2 Lab Routine 07/29/2024 10:05 PM [facility] End: 06-23-2024 reactive protein [Mass/volume] in Serum or PlasmaC-REACTIVE PROTEIN Lab Routine Chronic tophaceous gout Encounter for long-term (current) use of medications Every 3 months for 5 Occurrences starting 06/24/2023 until 06/23/2024leveland ClinicComment on above:Every 3 months for 5 Occurrences starting 06/24/2023 until 06/23/2024 End: 42-36-2282FZG W Auto Differential panel - BloodCOMPLETE BLOOD COUNT AND DIFFERENTIAL Lab Routine Chronic tophaceous gout Encounter for long-term (c urrent) use of medications Every 3 months for 5 Occurrences starting 06/24/2023 until 06/23/2024leveland ClinicComment on above:Every 3 months for 5 Occurrences starting 06/24/2023 until 06/23/2024 End: 48-96-7378ONZSANUZND BLDCREATININE BLD Lab Routine Chronic tophaceous gout Encounter for long-term (current) use of medications Every 3 months for 5 Occurrences starting 06/24/2023 until 06/23/2024leveland ClinicComment on above:Every 3 months for 5 Occurrences starting 06/24/2023 until 06/23/2024E COLI SHIGA TOXIN EIAE COLI SHIGA TOXIN EIA Lab Routine 07/30/2024 3:45 PM [facility] End: 06-53-6533Hbsogxghvnm sedimentation rateSEDIMENTATION RATE, WESTERGREN Lab Routine Chronic tophaceous gout Encounter for long-term (current) use of medications Every 3 months for 5 Occurrences starting 06/24/2023 until 06/23/2024leveland ClinicComment on above:Every 3 months for 5 Occurrences starting 06/24/2023 until 06/23/2024Patient EducationOhiohealth Riverside Methodist Hospital [facility]tr Work Phone: Patient referralOhiohealth Riverside Methodist Hospital Ctr Work Phone: SALMONELLA/SHIGELLA SCREENSALMONELLA/SHIGELLA SCREEN Lab Routine 07/30/2024 3:45 PM [facility] End: 22-08-0979Htedw [Mass/volume] in Serum or PlasmaURIC ACID Lab Routine Chronic tophaceous gout Encounter for long-term (current) use of medications E very 6 months for 3 Occurrences starting 06/24/2023 until 06/23/2024[facility]Comment on above:Every 6 months for 3 Occurrences starting 06/24/2023 until 06/23/2024 End: 71-80-5709ZG Foot - bilateral AP and Lateral and obliqueXR FOOT GENERAL 3V AP/LAT/OBL BILATERAL Radiology Routine Chronic tophaceous gout Encounter for long-term (current) use of medications 1 Occurrences starting 01/04/2024 until 02/02/2025[facility] Work Phone: Comment on above:1 Occurrences starting 01/04/2024 until 02/02/2025XR Foot - bilateral AP and Lateral and obliqueXR FOOT GENERAL 3V AP/LAT/OBL BILATERAL Radiology Routine Chronic tophaceous gout Encounter for long-term (current) use of medications 01/04/2024 9:48 AM [facility] Immunizations Immunization DateImmunizationNotesCare LcyksoonLdnfxroz33-03-6176tafhcrqws virus vaccine, unspecified formulationDelmy Boyle MD Work Phone: [facility] HospitalOmltcc33-20-3133hjysltn, mumps and rubella virus vaccineLeydi Aceves MD Work Phone: [facility] HealthcareEmzpkkbqda11-29-5471uewyteobiy, tetanus toxoids and acellular pertussis vaccine, unspecified formulationLeydi Aceves MD Work Phone: [facility] HealthcareIimhjqpzlt54-80-4793glutmswnclp influenzae type b vaccine, conjugate unspecified formulationLeydi Aceves MD Work Phone: [facility] HealthcareWsxtiksabf18-75-6102jvyyeyggn poliovirus vaccine, live, oralLeydi Aceves MD Work Phone: [facility] HealthcareWrwmyzqdkm55-86-3563tjdrvjmckb, tetanus toxoids and pertussis vaccineLeydi Aceves MD Work Phone: [facility] HealthcareUkfriugwub02-05-1544itjidrbyhag influenzae type b vaccine, conjugate unspecified formulationLeydi Aceves MD Work Phone: [facility] HealthcareAhpzgyayds75-48-1185rubtqrk, mumps and rubella virus vaccineLeydi Aceves MD Work Phone: [facility] HealthcareTkpyvmsleb57-44-7504uzypxhqvbn, tetanus toxoids and pertussis vaccineLeydi Aceves MD Work Phone: [facility]Qafvvhocur25-07-0636qnmhxhjtuvh influenzae type b vaccine, conjugate unspecified formulationLeydi Aceves MD Work Phone: [facility]fieldJdkamszqwr69-64-5623qncnuchrg poliovirus vaccine, live, oralLeydi Aceves MD Work Phone: [facility] HealthcareObpqnjpvos61-67-8342icylrewshw, tetanus toxoids and pertussis vaccineLeydi Aceves MD Work Phone: [facility]fieldLdoxfypnwi26-09-4463puqljumxkxj influenzae type b vaccine, conjugate unspecified formulationLeydi Aceves MD Work Phone: [facility] springfieldVpvqmfpbvf69-75-6001amfqcpkrq poliovirus vaccine, live, oralLeydi Aceves MD Work Phone: [facility] Payers DatePayer CategoryPayerPolicy [id number] Health InsuranceCARESOURCE MEDICAID Member Subscriber Plan / Payer (Effective 2022-Present) Name: Nick rWay Relation to Subscriber: Self Name: Nick Wray Payer ID: Not on file Group ID: [id number] Type: Not on file Address: [address] [place] [id number] 2022Medicaid [employer] MEDICAID [employer]ICA[employer] [id number] 2021-Present [phone] [address] [place] [address] [id number] 2022Medicaid [id number] [id number] 2.16.840.1.086922.3.57[id number] 2.16.840.1.238382.3.57[id number] 2.16.840.1.854828.3.57[id number] 2.16.840.1.750112.3.57[id number] 2.16.840.1.570422.3.57[id number] 2.16.840.1.683149.3.57[id number] 2.16.840.1.662952.3.57[id number] 2.16.840.1.773149.3.57[id number] 2.16.840.1.557261.3.57[id number] 2.16.840.1.289024.3.57[id number] 2.16.840.1.023236.3.57[id number] 2.16.840.1.475311.3.57[id number] 2.16.840.1.089795.3.57[id number] 2.16.840.1.166023.3.57[id number] 2.0.1.470771.3.57[id number] 2.0.1.792784.3.57[id number] 2.0.1.181149.3.57[id number] 2.0.1.944784.3.579.2.1259 [id number] [id number] [facility] [id number]-[id number] [id number] 2.840.1.4[id number] 2.0.1.436368.3.579.2.531 Social History DateTypeDetailFacilityStart: 05-04-2017 End: 44-33-9632Xyznxez smoking status NHISNever smoked tobaccoPaulding County Hospital Start: 05-04-2017 End: 44-68-3224Gpnipdf use and exposureUser of smokeless tobaccoPaulding County Hospital History of tobacco useChews TobaccoMercy Healthtart: 58-53-8001Ccf Assigned At BirthMission Hospital ClinicStart: 12-95-3653Slvhcme smoking status NHISSmoker (finding)[facility]: 12-22-2021 End: 74-65-2603Qlzfhdfx to SARS-CoV-2 (event)Not sureMercy Healthtart: 08-14-2022 End: 91-85-1808Cyahngg of Social functionMercy Healthtart: 08-14-2022 End: 34-62-6856Sigspxy use panelMercy Healthtart: 06-47-6251Xbrlh Depression Screening Hgjdjlyvnk0Zuovyxorn ClinicStart: 68-53-7292Ywhjgg identity Identifies as male gender (finding)[facility]: 05-33-6126Mrjwdy orientationHeterosexual (finding)[facility]ht[facility]: 84-07-7442Hxitrzt use and exposureSmokeless tobacco non-userNOMS HealthcareStart: 02-16-2023 End: 95-55-1064Nkaedps intakeCurrent drinker of alcohol (finding)[facility] Within the last year, have you been afraid of your partner or ex-partner?NoNOMS HealthcareDo you belong to any clubs or organizations such as yarsanism groups, unions, fraGenio Studio Ltd or athletic groups, or school groups?YesNOMS HealthcareAre you now , , , , never or living with a partner?MarriedNOMS HealthcareHow often to you have a drink containing alcohol? 2-4 times a monthNOMS HealthcareHow many standard drinks containing alcohol do you have on a typical day?3 or 4NOMS HealthcareHow often do you have 6 or more drinks on 1 occasion?Less than monthlyNOMS HealthcareHow hard is it for you to pay for the very basics like food, housing, medical care, and heatingNot very hardNOMS HealthcareDo you feel stress - tense, restless, nervous, or anxious, or unable to sleep at night because yourmind is troubled all the time - these days [OSQ]Very muchNOMS Healthcare(I/We) worried whether (my/our) food would run out before (I/we) got money to buy more.Never trueNOMS HealthcareStart: 12-16-2022 Alcohol CommentCaffeine intake: 1-2 cups per day soda/popNOMS HealthcareStart: 02-26-2008 End: 94-65-9950Oehjtyg smoking status NHISSmokes tobacco dailyNOMS HealthcareAre you now , , , , never or living with a partner?SeparatedNOMS HealthcareHow often to you have a drink containing alcohol?Monthly or lessNOMS HealthcareHow often do you have 6 or more drinks on 1 occasion?NeverNOMS Healthcare(I/We) worried whether (my/our) food would run out before (I/we) got money to buy more.Sometimes trueNOMS HealthcareStart: 67-47-2724Cndvuwx Comment2 or 3 drinks in one sitting. Maybe two or three times per wNOMS HealthcareStart: 75-49-0552Fdygnzz of tobacco useCigarette SmokerNOMS Healthcare Goals DatePatient GoalDesired Activity/State Functional Status WelwRylqeqoqevZqplfaJosmcsrv08-41-7459Qiapdvm Health Questionnaire 2 item (PHQ- 2) [Reported][facility] HealthcareWvxlcsjhsi22-35-5142Ikrruul Health Questionnaire 2 item (PHQ- 2) [Reported][facility] HealthcareUimqvdfjal10-70-7252Udayvqpcgm statusPatient at [facility] Work Phone: [phone]th statusDisability Status [facility] Work Phone: [phone] you deaf, or do you have serious difficulty hearingNo 04/26/2017 6:15 PM Domi Hurtado RN [facility] 04-14-4652Ipi you blind, or do you have serious difficulty seeing, even when wearing glassesNo 04/26/2017 6:15 PM Domi Hurtado RN [facility] 59-44-4300Or you have serious difficulty walking or climbing stairsNo 04/26/2017 6:15 PM Domi Hurtado RN NoCpremier health upper valley medical centerdat Qzimmy97-74-3142Wj you have difficulty dressing or bathingNo 04/26/2017 6:15 PM Domi Hurtado RN [facility] 55-83-7096Wdpfcbl of a physical, mental, or emotional condition, do you have difficulty doing errands alone such as visiting a physician's office or shopping No 04/26/2017 6:15 PM Domi Hurtado RN [facility] Mental Status AaeyMarczsnsnkOirrsqZskhvwsj86-01-8306Fozhrgeka functionCognitive Status [facility] Work Phone: [phone]r of a physical, mental, or emotional condition, do you have serious difficulty concentrating, remembering, or making decisionsNo 04/26/2017 6:15 PM Domi Hurtado RN [facility]COhio [facility] Clinical Notes 04-25-2017 to 12-05-2024 Note Date & YjmkHfxsZkcxwxdy85-85-5484 Telephone encounter Note* Telephone Encounter - ISIS Vera - 12/05/2024 9:22 AM EDT OARRS reviewed, Rx sent into patient's pharmacy. [facility] HealthcareVddbgneful93-63-9854 Miscellaneous Notes* Telephone Encounter - ISIS Vera - 12/05/2024 9:22 AM EDT OARRS reviewed, Rx sent into patient's pharmacy. * Telephone Encounter - KAT CHAUDHARI - 12/05/2024 8:27 AM EDT OV 11/07/24 documented in this encounterCitizens Memorial HealthcareTnuecgrcqk14-82-2877 Telephone encounter Note* Telephone Encounter - KAT CHAUDHARI - 12/05/2024 8:27 AM EDT OV 11/07/24 [facility] HealthcarePtjzfgbsov71-45-7357 NoteHNO ID: [id number] Author: NEETA CHENG RN Service: ? Author Type: Registered Nurse Type: Progress Notes Filed: 11/28/2024 15:59 Note Text: Redraw 0.6 ok to proceed per Dr Matthew Cheng [facility]NC[facility]-30-2025 NoteHNO ID: [id number] Author: NEETA CHENG RN Service: ? Author Type: Registered Nurse Type: Progress Notes Filed: 11/28/2024 15:59 Note Text: Uric acid drawn yesterday was in process this morning. Called out to main [facility] who ran the sample STAT so we can proceed with treatment today. Results were completely different from prior. Message sent to Dr Boyle who concurs with redrawing serum uric acid and ordered ok to proceed if uric acid is <6 Neeta Cheng RNCleveland Clinic [facility]09-16-2025 NoteHNO ID: [id number] Author: NEETA CHENG RN Service: ? Author Type: Registered Nurse Type: Progress Notes Filed: 11/14/2024 15:21 Note Text: Patient has arrived for first dose Krystexxa. Patient education reinforced, printed literature given. Questions were answered as appropriate. Neeta Cheng RNCleveland Clinic Mentor Hospital09-16-2025 History of Present illness Narrative* Neeta Cheng RN - 11/14/2024 12:29 PM EDT Patient has arrived for first dose Krystexxa. Patient education reinforced, printed literature given. Questions were answered as appropriate. Neeta Cheng RN documented in this encounterPaulding County Hospital09-15-2025 Telephone encounter Note * Telephone Encounter - Delmy Boyle MD - 11/13/2024 5:17 PM EDT OK to proceed with infusion. thx [facility]09-15-2025 Miscellaneous Notes* Telephone Encounter - Delmy Boyle MD - 11/13/2024 5:17 PM EDT OK to proceed with infusion. thx * Telephone Encounter - Lesia Covarrubias RN - 11/13/2024 4:22 PM EDT Nick is scheduled for his Krystexxa tomorrow 11/14/24 in our [facility]. His uric acid today was 9.5. Do you want us to treat? Please advise. Thank you, Lesia Covarrubias RN documented in this encounterPaulding County Hospital09-15-2025 Telephone encounter Note * Telephone Encounter - Lesia Covarrubias RN - 11/13/2024 4:22 PM EDT Nick is scheduled for his Krystexxa tomorrow 11/14/24 in our [facility]. His uric acid today was 9.5. Do you want us to treat? Please advise. Thank you, Lesia Covarrubias RN [facility]09-10-2025 Telephone encounter Note* Telephone Encounter - Delmy Boyle MD - 11/08/2024 12:25 PM EDT Orders signed. thx [facility]09-10-2025 Miscellaneous Notes* Telephone Encounter - Delmy Boyle MD - 11/08/2024 12:25 PM EDT Orders signed. thx * Telephone Encounter - Lesia Covarrubias RN - 11/08/2024 9:17 AM EDT Nick is scheduled to receive his Krystexxa infusion in our [facility] on 11/17. Can you please sign the orders to prevent a delay in treatment? Thank you, Lesia Covarrubias RN documented in this encounterPaulding County Hospital09-10-2025 Miscellaneous Notes* Telephone Encounter - Delmy Boyle MD - 11/08/2024 11:45 AM EDT Duplicate request - see other encounter. Controlled substances should be requested from only one provider - he should contact prescribing provider as recommend in other encounter. thx documented in this encounterPaulding County Hospital09-10-2025 Telephone encounter Note * Telephone Encounter - Delmy Boyle MD - 11/08/2024 11:45 AM EDT Duplicate request - see other encounter. Controlled substances should be requested from only one provider - he should contact prescribing provider as recommend in other encounter. thx [facility]09-10-2025 Telephone encounter Note* Telephone Encounter - Lesia Covarrubias RN - 11/08/2024 9:17 AM EDT Nick is scheduled to receive his Krystexxa infusion in our [facility] on 11/17. Can you please sign the orders to prevent a delay in treatment? Thank you, Lesia Covarrubias RN [facility]09-09-2025 History of Present illness Narrative* ISIS Vera - 11/07/2024 9:30 AM EDT Images from the original note were not included. HPI Med Refill Additional comments: Hydrocodone Last edited by Cristal Ojeda LPN on 11/07/2024 9:35 AM. Subjective Patient ID: Nick Wray is a 34 y.o. male who presents for rheumatoid arthritis. Nick is present today for follow up rheumatoid arthritis. He is currently on hydrocodone as needed. States infusions next Wednesday, Krystexxa. Follows up with Rheumatology 01/09/2025. Goal is eventually for him to be able to come off of the Methotrexate and be on Uloric only. Having less flare ups, just has some constant diffuse underlying pain. He is optimistic regarding starting the infusions. Current Outpatient Medications on File Prior to Visit Medication Sig Dispense Refill febuxostat (Uloric) 40 MG tablet Take 40 mg by mouth Daily folic acid (Folvite) 1 MG tablet Take 1,000 mcg by mouth Daily methotrexate 2.5 MG tablet Take 2.5 mg by mouth 1 (one) time per week. predniSONE (Deltasone) 5 MG tablet Take 5 mg by mouth Daily PRN amLODIPine (Norvasc) 10 MG tablet TAKE 1 TABLET BY MOUTH EVERY DAY FOR 100 DAYS 100 tablet 3 carvedilol (Coreg) 6.25 MG tablet TAKE 1 TABLET BY MOUTH TWICE A DAY WITH FOOD 180 tablet 3 cloNIDine (Catapres) 0.1 MG tablet TAKE 1 TABLET BY MOUTH TWICE A DAY 180 tablet 3 colchicine 0.6 MG tablet TAKE 1 TABLET BY MOUTH EVERY OTHER DAY 15 tablet 11 gabapentin (Neurontin) 300 MG capsule Take 1 capsule (300 mg) by mouth in the morning and 1 capsule(300 mg) before bedtime. 100 capsule 3 HYDROcodone-acetaminophen (Batchelor) 5-325 MG tablet Take 1 tablet by mouth every 12 (twelve) hours ifneeded for severe pain 60 tablet 0 [DISCONTINUED] allopurinol (Zyloprim) 100 MG tablet Take 200 mg by mouth Daily Take with Allopurinol 3oomg (2 tabs)=700mg total [DISCONTINUED] allopurinol (Zyloprim) 300 MG tablet Take 600 mg by mouth in the morning. No current facility-administered medications on file prior to visit. I have reviewed and reconciled the history and medication list with the patient today. No Known Allergies Social History Tobacco Use Smoking status: Every Day Current packs/day: 1.50 Average packs/day: 1.5 packs/day for 16.7 years (25.0 ttl pk-yrs) Types: Cigarettes Start date: 02/26/2008 [...] [facility] ER Anxiety Chronic kidney disease Depression Gout 2011 Gout [facility] observation: gout (10/26/2016),[facility] - Gout (12/2014),[facility] - Gout/RA (01/2015) Headache 09/28/2022 CT Scan of Brain Noraml, No acute abnormal Hypertension Rheumatoid arthritis (HCC) Rheumatoid arthritis of multiple sites with negative rheumatoid factor (HCC) 05/10/2017 Past Surgical History: Procedure Laterality Date FRACTURE SURGERY INCISION AND DRAINAGE OF WOUND 02/15/[address] Coffman SHOULDER ARTHROSCOPY Right WISDOM TOOTH EXTRACTION 2008 Visit Vitals BP 108/76 Pulse 65 Resp 16 Ht 6' 2 Wt 225 lb 12.8 oz SpO2 98% BMI 28.99 kg/m Smoking Status Every Day BSA 2.31 m Review of Systems Constitutional: Negative for chills, fatigue and fever. Respiratory: Negative for cough, shortness of breath and wheezing. Cardiovascular: Negative for chest pain, palpitations and leg swelling. Gastrointestinal: Negative for abdominal pain, constipation, diarrhea, nausea and vomiting. Musculoskeletal: Positive for arthralgias. Skin: Negative for rash. Objective Physical Exam Constitutional: General: He is not in acute distress. Appearance: Normal appearance. HENT: Head: Normocephalic and atraumatic. Eyes: General: No scleral icterus. Cardiovascular: Rate and Rhythm: Normal rate and regular rhythm. Heart sounds: No murmur heard. Pulmonary: Effort: Pulmonary effort is normal. No respiratory distress. Breath sounds: Normal breath sounds. No wheezing, rhonchi or rales. Musculoskeletal: General: No swelling. Skin: General: Skin is warm and dry. Neurological: General: No focal deficit present. Mental Status: He is alert and oriented to person, place, and time. Psychiatric: Mood and Affect: Mood normal. Behavior: Behavior normal. Assessment/Plan Diagnoses and all orders for this visit: Essential hypertension Patient's blood pressure is currently well controlled. Continue with current medications and I willcontinue to monitor. Goal BP remains less than 130/80. Rheumatoid arthritis involving multiple sites with positive rheumatoid factor (HCC) - HYDROcodone-acetaminophen (Batchelor) 5-325 MG tablet; Take 1 tablet by mouth every 12 (twelve) hoursif needed for severe pain Medication choice and dosage is appropriate for [...] OARRS Report was reviewed for this patient. Continue to follow up with Rheumatology as scheduled. Follow up in about 3 months (around 02/06/2025) for Wellness, Medication Follow Up. documented in this encounterCitizens Memorial HealthcareJepmeqnzid65-03-1483 Telephone encounter Note* Telephone Encounter - Delmy Boyle MD - 11/03/2024 5:40 PM EDT The following approved medication requests have been transmitted electronically. Requested Prescriptions Signed Prescriptions Disp Refills predniSONE (DELTASONE) 5 mg tablet 21 tablet 0 Sig: Take 6 tab in AM on day 1 then reduce dose by 1 tablet every day until off Delmy Boyle MD [facility]09-05-2025 Miscellaneous Notes* Telephone Encounter - Delmy Boyle MD - 11/03/2024 5:40 PM EDT The following approved medication requests have been transmitted electronically. Requested Prescriptions Signed Prescriptions Disp Refills predniSONE (DELTASONE) 5 mg tablet 21 tablet 0 Sig: Take 6 tab in AM on day 1 then reduce dose by 1 tablet every day until off Delmy Boyle MD * Telephone Encounter - Swathi Uribe MA - 11/02/2024 2:47 PM EDT Prescription Refill Information The patient has been identified by name and date of : Yes Caregiver verified no other encounters exist for this prescription request: Yes Caregiver confirmed with patient/requestor that no other refills are due, in the near future, with this provider at this time: Yes The last office visit in the department: 10/03/24 Does the patient have a future office visit with this provider/department: Yes 01/09/25 Requested Prescriptions Pending Prescriptions Disp Refills traMADol (ULTRAM) 50 mg tablet 10 tablet 0 Sig: Take 1 tablet by mouth two times a day as needed for pain for up to 7 days. FOR SHORT TERM USEONLY. Swathi Uribe MA November 02, 2024 2:58 PM documented in this encounterPaulding County Hospital09-04-2025 Telephone encounter Note * Telephone Encounter - Swathi Uribe MA - 11/02/2024 2:47 PM EDT Prescription Refill Information The patient has been identified by name and date of : Yes Caregiver verified no other encounters exist for this prescription request: Yes Caregiver confirmed with patient/requestor that no other refills are due, in the near future, with this provider at this time: Yes The last office visit in the department: 10/03/24 Does the patient have a future office visit with this provider/department: Yes 01/09/25 Requested Prescriptions Pending Prescriptions Disp Refills traMADol (ULTRAM) 50 mg tablet 10 tablet 0 Sig: Take 1 tablet by mouth two times a day as needed for pain for up to 7 days. FOR SHORT TERM USEONLY. Swathi Uribe MA November 02, 2024 2:58 PM [facility]08-05-2025 Telephone encounter Note* Telephone Encounter - Caren Vogt LPN - 10/03/2024 8:59 AM EDT Urgent prior authorization request and [facility] Febuxostat/Uloric [facility]08-05-2025 Miscellaneous Notes* Telephone Encounter - Caren Vogt LPN - 10/03/2024 8:59 AM EDT Urgent prior authorization request and today's office notes faxed to [facility]. Febuxostat/Uloric documented in this encounterPaulding County Hospital08-05-2025 NoteHNO ID: [id number] Author: DELMY BOYLE MD Service: ? Author Type: Physician Type: Progress Notes Filed: 10/03/2024 11:17 Note Text: DX: chronic tophaceous gout, possible [...] arthritic flares once every 4 [address] trim installer [address]. Jaime in [place] who did diagnostic knee aspiration which according to patient was positive for uric acid crystals. Treated with steroids and continued allopurinol. He has not seen Dr. Jaime since 2014. In 2014, he was hospitalized in [place] for acute polyarthritis. Saw trim installer while in hospital who told him that he possibly had RA. Discharged on steroids. His PCP switched him from allopurinol to Uloric Jan 2017. He also takes colchicine prn. No reduction in frequency or severity of his joint flares with Uloric. In 2017, he has been hospitalized 7-8 times for acute joint flares. Each time he is treated with steroids. Hospitalized at [facility] Apr 2017 for acute flare of [...] PMH: possible seronegative RA, CKD On allopurinol 800 mg daily+colchicine 0.6 mg qod PLAN: 1. TOPHACEOUS GOUT -off Uloric with increase in his SUA from 5.7 to 11.1 mg/dL. He is unable to afford OOP costs of Uloric. -We had previously discussed Krystexxa infusion but he declined because he is not able to travel and take time off every 2 weeks for the infusion. 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 Mild right foot osteoarthritis. Results d/w patient -01/04/2024 XR BL knees: Bilateral prepatellar gouty tophi, similar to 05/04/2017. Mild right knee osteoarthritis. Results d/w patient -SUA was at goal (4.7 in 11/2023) but now 12.9 . He admits to ETOH and infrequent missed allopurinol doses. Consistent with colchicine qod -we had previously discussed starting Krystexxa but he declined because of his work schedule. Given worsening tophaceous gout despite uric acid lowering agents, I recommend Krystexxa. R/B/A of Krystexxa d/w patient. Advise that we will need to check G6PD and start methotrexate prior to starting Krystexxa infusion. Literature on Krystexxa given. He would like some time to think about it and see if his work schedule will accommodate time off for the infusions. He will contact our office if he decides to proceed with the infusion -in the meantime, we agreed to stop allopurinol and switch to Uloric daily (starting dose 40 mg daily and can uptitrate dose if uric acid remains above 6 mg/dL) and increase colchicine to 0.6 mg daily -I asked that he have labs done [...] exam -hold off on DMARDs for now. If he decides to proceed with Krystexxa, will start methotrexate 4. LEFT SHOULDER ROTATOR CUFF TEAR/ADHESIVE CAPSULITIS/LABRAL [...] shoulder surgery by Dr. Tc Coffey at [facility]. No post op complications. Was in PT 5. GENERAL HEALTH MAINTENANCE -continue follow up on his CKD with nephrology -he will follow up with his PCP for his general health issues FU 3 MON, SOONER IF NEEDED INTERVAL HISTORY Recording using ACTON software for draft documentation of the vi (more content not included)...[facility]08-04-2025 Telephone encounter Note* Telephone Encounter - ISIS Vera - 10/02/2024 3:55 PM EDT OARRS reviewed, Rx sent into patient's pharmacy. Discussed patient with Dr. Aceves. Will monitor mental health status closely. Will ensure pt has routine follow up appointments. Pt is scheduled to see Rheumatology tomorrow. Goal is to pursue non-narcotic treatment options through Rheumatology, safer long filler cigar roller machine solutions. [facility] HealthcareXkuqrwgzqy93-01-2256 Miscellaneous Notes* Telephone Encounter - ISIS Vera - 10/02/2024 3:55 PM EDT OARRS reviewed, Rx sent into patient's pharmacy. Discussed patient with Dr. Aceves. Will monitor mental health status closely. Will ensure pt has routine follow up appointments. Pt is scheduled to see Rheumatology tomorrow. Goal is to pursue non-narcotic treatment options through Rheumatology, safer long filler cigar roller machine solutions. * Telephone Encounter - Roseanna Elmore - 10/02/2024 1:11 PM EDT HYDROcodone-acetaminophen (Batchelor) 5-325 MG tablet [facility]um documented in this encounterCitizens Memorial HealthcareZawonseoqb76-33-6441 Telephone encounter Note* Telephone Encounter - Roseanna Elmore - 10/02/2024 1:11 PM EDT HYDROcodone-acetaminophen (Batchelor) 5-325 MG tablet [facility] [id number] Telephone encounter Note* Telephone Encounter - ISIS Vera - 09/16/2024 1:35 PM EDT Colchicine sent. [facility] [id number] Miscellaneous Notes* Telephone Encounter - ISIS Vera - 09/16/2024 1:35 PM EDT Colchicine sent. documented in this encounterCitizens Memorial He[id number] History of Present illness Narrative* ISIS Vera - 09/13/2024 1:00 PM EDT Images from the original note were not included. Subjective Patient ID: Nick Wray is a 34 y.o. male who presents for Suture / Staple Removal. Pt is here due to dropping a pair of hedge trimmers on his left leg and had to get two stitches from this happened on 09/05 and he went to [facility] ER Pt was not given any medciations Over the past 2 weeks, how often have you been bothered by any of the following problems? Little interest or pleasure in doing things: Not at all Feeling down, depressed, or hopeless: Not at all Patient Health Questionnaire-2 Score: 0 Current Outpatient Medications on File Prior to Visit Medication Sig Dispense Refill allopurinol (Zyloprim) 100 MG tablet Take 200 [...] tablet 1 gabapentin (Neurontin) 300 MG capsule Take 1 capsule (300 mg) by mouth in the morning and 1 capsule(300 mg) before bedtime. 100 capsule 3 HYDROcodone-acetaminophen (Batchelor) 5-325 MG tablet Take 1 tablet by mouth every 12 (twelve) hours ifneeded for severe pain 60 tablet 0 No current facility-administered medications on file prior to visit. I have reviewed and reconciled the history and medication list with the patient today. No Known Allergies Social History Tobacco Use Smoking status: Every Day Current packs/day: 1.50 Average packs/day: 1.5 packs/day for 16.5 years (24.8 ttl pk-yrs) Types: Cigarettes Start date: 02/26/2008 [...] [facility] ER Anxiety Chronic kidney disease Depression Gout 2011 Gout [facility] observation: gout (10/26/2016),[facility] - Gout (12/2014),[facility] - Gout/RA (01/2015) Headache 09/28/2022 CT Scan of Brain [place], No acute abnormal Hypertension Rheumatoid arthritis (HCC) Rheumatoid arthritis of multiple sites with negative rheumatoid factor (HCC) 05/10/2017 Past Surgical History: Procedure Laterality Date FRACTURE SURGERY INCISION AND DRAINAGE OF WOUND 02/15/[address] Coffman SHOULDER ARTHROSCOPY Right WISDOM TOOTH EXTRACTION 2008 Visit Vitals BP 112/78 Pulse 102 Ht 6' 2 Wt 208 lb SpO2 97% BMI 26.71 kg/m Smoking Status Every Day BSA 2.22 m Review of Systems Constitutional: Negative for chills, fatigue and fever. Respiratory: Negative for cough, shortness of breath and wheezing. Cardiovascular: Negative for chest pain, palpitations and leg swelling. Gastrointestinal: Negative for abdominal pain, constipation, diarrhea, nausea and vomiting. Skin: Positive for wound. Negative for rash. Objective Physical Exam Constitutional: General: He is not in acute distress. Appearance: Normal appearance. HENT: Head: Normocephalic and atraumatic. Eyes: General: No scleral icterus. Cardiovascular: Rate and Rhythm: Normal rate and regular rhythm. Pulmonary: Effort: Pulmonary effort is normal. No respiratory distress. Breath sounds: No wheezing. Musculoskeletal: General: Signs of injury present. Normal range of motion. Skin: General: Skin is warm and dry. Findings: Wound present. Comments: Left lower anterior leg with healing wound, two intact sutures, minimal scabbing, mild erythema around wound Neurological: Mental Status: He is alert and oriented to person, place, and time. Sensory: No sensory deficit. Gait: Gait normal. Psychiatric: Mood and Affect: Mood normal. Behavior: Behavior normal. Assessment/Plan Diagnoses and all orders for this visit: Open wound of left lower leg, subsequent encounter The patient was seen today in follow up of recent hospital ER visit. All available hospital recordswere reviewed and discussed with the patient. Encounter for removal of sutures Area cleaned with alcohol. Two simple sutures removed with suture scissors and forceps. Steri-strips applied. Pt tolerated this well. Care reviewed. No soaking area for next 48-72 days. Monitor for any increase in erythema, abnormal warmth, or purulent drainage. Follow up for any concerns or call office. Follow up in about 3 months (around 12/14/2024) for Medication Follow Up. documented in this encounterCitizens Memorial [id number] Telephone encounter Note* Telephone Encounter - ISIS Vera - 09/04/2024 8:51 AM EDT OARRS reviewed, Rx sent into patient's pharmacy. [facility] [id number] Miscellaneous Notes* Telephone Encounter - ISIS Vera - 09/04/2024 8:51 AM EDT OARRS reviewed, Rx sent into patient's pharmacy. * Telephone Encounter - KAT CHAUDHARI - 09/04/2024 8:16 AM EDT OV 08/07/24 RF 08/07/24 documented in this encounterCitizens Memorial HealthcareYvtoxzavmt38-35-4082 Telephone encounter Note* Telephone Encounter - KAT CHAUDHARI - 09/04/2024 8:16 AM EDT OV 08/07/24 RF 08/07/24 [facility] HealthcareQlouzcqizr27-71-7746 History of Present illness Narrative* ISIS Vera - 08/07/2024 11:00 AM EDT Images from the original note were not included. Subjective Patient ID: Nick Wray is a 34 y.o. male who presents for [facility] follow up. Flowsheet Row Patient Outreach from 08/01/2024 in [facility] with Jayne Del Valle RN Hospital Information ED, Hospital or [facility] Facility Discharge? Hospital Patient has been contacted within two business days of discharge Yes Diagnosis intractable pain, polyarthralgia, RA flare, acute hypernatremia, hyperglycemia-drug induced Discharge Date 07/31/24 Discharged To: Home Setting Discharge Hospital [facility] Engagement Admission Date 07/29/24 Medications Discharge medications [...] follow up appt with pt with Marina MARINELLI on 08/07 at 1030am. Did a Zoom call with an PROFESSOR OF ENVIRONMENTAL STUDIES at the Rheumatology office last week. Is going to be seeing them the first week of August. Hasn't been drinking ETOH. Work shifts change and that makes sleep difficult. Was told to start working on improving his diet. Right elbow and left knee with swelling and pain. States worked 64 hours in 5 days and thinks that is what caused his recent flare. Current Outpatient Medications on File Prior to Visit Medication Sig Dispense Refill [DISCONTINUED] traMADol (Ultram) 50 MG tablet Take 1 tablet (50 mg) by mouth every 12 (twelve) hours if needed for moderate pain 60 tablet 0 allopurinol (Zyloprim) 100 MG tablet Take 200 [...] tablet 1 gabapentin (Neurontin) 300 MG capsule Take 1 capsule (300 mg) by mouth in the morning and 1 capsule(300 mg) before bedtime. 100 capsule 3 predniSONE (Deltasone) 10 MG tablet Take by mouth Daily 50mg daily x3 days, 40mg daily x3 days, 30mg daily x3 days, 20mg daily x3 days, 10mg daily x3 days, 5mg daily x4 days. [DISCONTINUED] amLODIPine (Norvasc) 10 MG tablet TAKE 1 TABLET BY MOUTH EVERY DAY FOR 100 DAYS 100 tablet 3 [DISCONTINUED] cloNIDine (Catapres) 0.1 MG tablet TAKE 1 TABLET BY MOUTH TWICE A DAY 180 tablet 3 [DISCONTINUED] methylPREDNISolone (Medrol Dospak) 4 MG tablets Follow schedule on package instructions 21 tablet 0 [DISCONTINUED] oxyCODONE-acetaminophen (Percocet) 5-325 MG tablet Take 1 tablet by mouth every 4 (four) hours if needed for severe pain or moderate pain No current facility-administered medications on file prior to visit. I have reviewed and reconciled the history and medication list with the patient today. No Known Allergies Social History Tobacco Use Smoking status: Every Day Current packs/day: 1.50 Average packs/day: 1.5 packs/day for 16.4 years (24.7 ttl pk-yrs) Types: Cigarettes Start date: 02/26/2008 [...] Anxiety Chronic kidney disease Depression (CMS/HCC) Gout 2012 Gout [facility] observation: gout (10/26/2016),[facility] - Gout [...] TOOTH EXTRACTION 2008 Visit Vitals BP (!) 162/118 Pulse 83 Resp 18 Ht 6' 2 Wt 219 lb 12.8 oz SpO2 98% BMI 28.22 kg/m Smoking Status Every Day BSA 2.28 m Review of Systems Constitutional: Negative for chills, fatigue and fever. Respiratory: Negative for cough, shortness of breath and wheezing. Cardiovascular: Negative for chest pain, palpitations and leg swelling. Gastrointestinal: Negative for abdominal pain, constipation, diarrhea, nausea and vomiting. Musculoskeletal: Positive for arthralgias. Skin: Negative for rash. Objective Physical Exam Constitutional: General: He is not in acute distress. Appearance: Normal appearance. HENT: Head: Normocephalic and atraumatic. Eyes: General: No scleral icterus. Cardiovascular: Rate and Rhythm: Normal rate and regular rhythm. Heart sounds: No murmur heard. Pulmonary: Effort: Pulmonary effort is normal. No respiratory distress. Breath sounds: Normal breath sounds. No wheezing, rhonchi or rales. Musculoskeletal: General: No swelling. Skin: General: Skin is warm and dry. Neurological: General: No focal deficit present. Mental Status: He is alert and oriented to person, place, and time. Psychiatric: Mood and Affect: Mood normal. Behavior: Behavior normal. Assessment/Plan Diagnoses and all orders for this visit: Rheumatoid arthritis involving multiple sites with positive rheumatoid factor (CMS/HCC) - HYDROcodone-acetaminophen (Batchelor) 5-325 MG tablet; Take 1 tablet by mouth every 12 (twelve) hoursif needed for severe pain Tramadol is not effective for pt. He cannot tell a difference when he takes it. Will change pt to Batchelor at this time. Medication choice and dosage is appropriate for [...] OARRS Report was reviewed for this patient. Encouraged him to keep his appointment with Rheumatology as scheduled in August to discuss treatment options for prevention of RA flare ups. Other chronic pain Pain Management agreement reviewed with patient and signed by both patient and provider. A copy of the signed agreement was offered to the patient. 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 Also reviewed patient responsibilities regarding opioid therapy, and reasons why medication may need to be discontinued. See Chronic Opioid Therapy Agreement document for complete details. Essential hypertension (CMS/HCC) BP elevated today, he is in pain and currently on steroids. Will recheck at his next appointment orsooner should he have concerns. The patient was seen today in follow up of recent hospital stay. All available hospital records were reviewed and discussed with the patient. Hospital discharge meds were reviewed. Any changes are asnoted. Follow up in about 3 months (around 11/07/2024) for Medication Follow Up. documented in this encounterCitizens Memorial HealthcareHejszrxskt15-22-9945 Telephone encounter Note* Telephone Encounter - ISIS Vera - 07/26/2024 9:35 AM EDT Tramadol already sent. [facility] HealthcareVkxkanlesq06-67-0114 Miscellaneous Notes* Telephone Encounter - ISIS Vera - 07/26/2024 9:35 AM EDT Tramadol already sent. documented in this [facility]05-28-2025 Telephone encounter Note* Telephone Encounter - ISIS Vera - 07/26/2024 9:33 AM EDT OARRS reviewed, Rx sent into patient's pharmacy. [facility] HealthcareFoaicinias21-13-3589 Miscellaneous Notes* Telephone Encounter - ISIS Vera - 07/26/2024 9:33 AM EDT OARRS reviewed, Rx sent into patient's pharmacy. documented in this [facility]05-13-2025 Telephone encounter Note* Telephone Encounter - ISIS Vera - 07/11/2024 10:04 AM EDT No longer filling the Batchelor for pt, he has been tapered off. He can take Tramadol as needed for pain. [facility] HealthcareYjdjxukrcd53-77-2292 Miscellaneous Notes* Telephone Encounter - ISIS Vera - 07/11/2024 10:04 AM EDT No longer filling the Batchelor for pt, he has been tapered off. He can take Tramadol as needed for pain. * Telephone Encounter - KAT CHAUDHARI - 07/11/2024 8:54 AM EDT Last OV 05-18-24 Refill 07-07-24 documented in this [facility]05-13-2025 Telephone encounter Note* Telephone Encounter - KAT CHAUDHARI - 07/11/2024 8:54 AM EDT Last OV 3-20-25 Refill 5-925 [facility] HealthcareBfkdddeczi76-57-2822 Telephone encounter Note* Telephone Encounter - ISIS Vera - 07/07/2024 11:04 AM EDT OARRS reviewed, Rx sent into patient's pharmacy. [facility] HealthcareOfnpokoukf66-44-3866 Miscellaneous Notes* Telephone Encounter - ISIS Vera - 07/07/2024 11:04 AM EDT OARRS reviewed, Rx sent into patient's pharmacy. * Telephone Encounter - KAT CHAUDHARI - 07/07/2024 10:16 AM EDT Last OV 3-20-25 Last refill 5--25 documented in this [facility]05-09-2025 Telephone encounter Note* Telephone Encounter - KAT CHAUDHARI - 07/07/2024 10:16 AM EDT Last OV 3-20-25 Last refill 5-5-25 [facility] HealthcareJvrbohofpw25-72-4824 Telephone encounter Note* Telephone Encounter - ISIS Vera - 07/03/2024 2:40 PM EDT Sent in a lower dosing frequency. [facility] HealthcareHsozxbglyl48-89-9500 Miscellaneous Notes* Telephone Encounter - ISIS Vera - 07/03/2024 2:40 PM EDT Sent in a lower dosing frequency. documented in this [facility]04-30-2025 Telephone encounter Note* Telephone Encounter - ISIS Vera - 06/28/2024 9:39 AM EDT OARRS reviewed, Rx sent into patient's pharmacy. [facility] HealthcareDhpaccglqj13-68-5062 Miscellaneous Notes* Telephone Encounter - ISIS Vera - 06/28/2024 9:39 AM EDT OARRS reviewed, Rx sent into patient's pharmacy. documented in this [facility]04-29-2025 Telephone encounter Note* Telephone Encounter - ISIS Vera - 06/27/2024 9:41 AM EDT Already addressed, [facility] He[id number] Miscellaneous Notes* Telephone Encounter - ISIS Vera - 06/27/2024 9:41 AM EDT Already addressed, * Telephone Encounter - Roseanna Elmore - 06/26/2024 1:44 PM EDT HYDROcodone-acetaminophen (Batchelor) 5-325 MG tablet [facility] documented in this [place] [id number] Telephone encounter Note* Telephone Encounter - ISIS Vera - 06/27/2024 8:06 AM EDT Currently on medrol [place] [id number] Miscellaneous Notes* Telephone Encounter - ISIS Vera - 06/27/2024 8:06 AM EDT Currently on medrol documented in this [place] [id number] Telephone encounter Note* Telephone Encounter - Roseanna Elmore - 06/26/2024 1:44 PM EDT HYDROcodone-acetaminophen (Batchelor) 5-325 MG tablet [facility] [place] [id number] Telephone encounter Note* Telephone Encounter - ISIS Vera - 06/19/2024 9:30 AM EDT OARRS reviewed, Rx sent into patient's pharmacy. [place] [id number] Miscellaneous Notes* Telephone Encounter - ISIS Vera - 06/19/2024 9:30 AM EDT OARRS reviewed, Rx sent into patient's pharmacy. documented in this [place] [id number] Telephone encounter Note* Telephone Encounter - ISIS Vera - 06/12/2024 9:20 AM EDT OARRS reviewed, Rx sent into patient's pharmacy. [place] [id number] Miscellaneous Notes* Telephone Encounter - ISIS Vera - 06/12/2024 9:20 AM EDT OARRS reviewed, Rx sent into patient's pharmacy. documented in this [facility]04-07-2025 Telephone encounter Note* Telephone Encounter - ISIS Vera - 06/05/2024 11:39 AM EDT OARRS reviewed, Rx sent into patient's pharmacy. [facility] HealthcareGdmhzjdeje10-07-8561 Miscellaneous Notes* Telephone Encounter - ISIS Vera - 06/05/2024 11:39 AM EDT OARRS reviewed, Rx sent into patient's pharmacy. documented in this [facility]03-31-2025 Telephone encounter Note* Telephone Encounter - ISIS Vera - 05/29/2024 11:11 AM EDT OARRS reviewed, Rx sent into patient's pharmacy. [facility] HealthcareDgebnxkpzu09-65-3219 Miscellaneous Notes* Telephone Encounter - ISIS Vera - 05/29/2024 11:11 AM EDT OARRS reviewed, Rx sent into patient's pharmacy. * Telephone Encounter - KAT CHAUDHARI - 05/29/2024 8:32 AM EDT Last OV 3-20-25 Last refill 05-23-24 documented in this [facility]03-31-2025 Telephone encounter Note* Telephone Encounter - KAT CHAUDHARI - 05/29/2024 8:32 AM EDT Last OV 05-18-24 Last refill 05-23-24 [facility] [id number] Telephone encounter Note* Telephone Encounter - ISIS Vera - 05/11/2024 12:58 PM EDT OARRS reviewed, Rx sent into patient's pharmacy. [facility] HealthcareThpygopnai87-03-9220 Miscellaneous Notes* Telephone Encounter - ISIS Vera - 05/11/2024 12:58 PM EDT OARRS reviewed, Rx sent into patient's pharmacy. * Telephone Encounter - Roseanna Elmore - 05/11/2024 11:41 AM EDT Pt called asking for hydrocodone to be sent in I'm not seeing this on his med list documented in this [facility]03-13-2025 Telephone encounter Note* Telephone Encounter - Roseanna Elmore - 05/11/2024 11:41 AM EDT Pt called asking for hydrocodone to be sent in I'm not seeing this on his med list [facility] HealthcareDvgezsiwaq54-63-8595 Telephone encounter Note* Telephone Encounter - ISIS Vera - 04/25/2024 5:03 PM EST OARRS reviewed, Rx sent into patient's pharmacy. [facility] HealthcareMrztzqluyw58-50-2555 Miscellaneous Notes* Telephone Encounter - ISIS Vera - 04/25/2024 5:03 PM EST OARRS reviewed, Rx sent into patient's pharmacy. documented in this encounterCitizens Memorial HealthcareQaumxnrybe58-85-0918 History of Present illness Narrative* ISIS Vera - 04/20/2024 10:00 AM EST Images from the original note were not included. HPI Med Refill Additional comments: Oxycodone for a few days Last edited by Cristal Ojeda LPN on 04/20/2024 10:02 AM. Subjective Patient ID: Nick Wray is a 34 y.o. male who presents for [facility] ER follow up. Flowsheet Row Patient Outreach from 04/18/2024 in [facility] with Jayne Del Valle RN Hospital Information ED, Hospital or [facility] Facility Discharge? ED Patient has been contacted within 1 week of being seen in the ED Yes Diagnosis Rheumatoid Arthritis Flare up, single digit Discharge Date 04/15/24 Discharged To: Home Setting Discharge Hospital [facility] Engagement Admission Date 04/15/24 Medications Discharge medications [...] days, THEN 1 tablet (10 mg) Daily for4 days. 40 tablet 0 traMADol (Ultram) 50 MG tablet Take 1 tablet (50 mg) by mouth every 12 (twelve) hours if needed formoderate pain 60 tablet 0 [DISCONTINUED] lidocaine (Lidoderm) [...] today. If his BP is not improved, heis to contact the office. Abscess of right index finger - amoxicillin-clavulanate (Augmentin) 875-125 MG tablet; Take 1 tablet (875 mg) by mouth in the morning and 1 tablet (875 mg) in the evening. Take with meals. Do all this for 10 days. - HYDROcodone-acetaminophen (Batchelor) 5-325 MG tablet; Take 1 tablet by [...] the patient. ER discharge meds were reviewed. Anychanges to plan are as noted. Follow up in about 3 months (around 07/18/2024) for Hypertension, Medication Follow Up. documented in this encounterCitizens Memorial HealthcareQhizmcnjhz91-10-9477 Telephone encounter Note* Telephone Encounter - ISIS Vera - 02/02/2024 11:57 AM EST Pt was given a long taper just recently. If [facility] is still having [facility] for managing the flare up. [facility] [id number] Miscellaneous Notes* Telephone Encounter - ISIS Vera - 02/02/2024 11:57 AM EST Pt was given a long taper just recently. If he is still having significant [facility] for managing the flare up. * Telephone Encounter - Jayne Us MA - 02/02/2024 11:35 AM EST Can he be given the steroid ?? documented in this encounterCitizens Memorial HealthcareXcoqtrmzfg50-33-2490 Telephone encounter Note* Telephone Encounter - Jayne Us MA - 02/02/2024 11:35 AM EST Can he be given the steroid ?? [facility] HealthcarePauunlggfe56-39-9254 History of Present illness Narrative* ISIS Vera - 01/21/2024 9:00 AM EST Images from the original note were not [...] every two weeks. States a doctor at [employer], where he works, drained his finger before which did provide temporary improvement in pain. Current Outpatient Medications on File Prior to Visit Medication Sig Dispense Refill [DISCONTINUED] famotidine (Pepcid) 20 MG tablet Take 20 mg by mouth in the morning and 20 mg beforebedtime. allopurinol (Zyloprim) 100 MG tablet Take 100 [...] mouth every 12 (twelve) hours if needed formoderate pain 60 tablet 0 traZODone (Desyrel) 50 [...] multiple sites with positive rheumatoid factor ([facility]) - diclofenac sodium (Voltaren Arthritis Pain) 1 [...] tablet by mouth every 6 (six) hours ifneeded for severe pain for up to 5 [...] have finger drained if worsens. Essential hypertension ([facility]) Patient's BP in Rheumatology office on 01/04/24 [...] the patient. ER discharge meds were reviewed. Anychanges to plan are noted above. Follow up in about 3 months (around 04/22/2024) for Medication Follow Up. documented in this encounterCitizens Memorial HealthcareKnxsotjaem83-84-9715 Telephone encounter Note* Telephone Encounter - Roseanna Elmore - 01/18/2024 1:11 PM EST oxyCODONE-acetaminophen (Percocet) 5-325 MG tablet [facility] HealthcareHfcrikpbzj88-31-5715 Miscellaneous Notes* Telephone Encounter - Roseanna Elmore - 01/18/2024 1:11 PM EST oxyCODONE-acetaminophen (Percocet) 5-325 MG tablet [facility] documented in this encounterCitizens Memorial HealthcareLudpfjjzjk34-38-5935 Telephone encounter Note* Telephone Encounter - ISIS Vera - 01/07/2024 8:35 AM EST OARRS reviewed, Rx sent into patient's pharmacy. [facility] HealthcareUvkdhkcmbg40-36-5966 Miscellaneous Notes* Telephone Encounter - ISIS Vera - 01/07/2024 8:35 AM EST OARRS reviewed, Rx sent into patient's pharmacy. 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 [employer]: ADELA Transcribe Date/Time: Jan 04 2024 10:13A Dictated by : UMA ROGESR MD This examination was interpreted and the report reviewed and electronically signed by: CHELSEA REEVES MD on Jan 04 2024 3:12PM EST [place] [id number] Telephone encounter Note* Telephone Encounter - Camilla Holt LPN - 01/04/2024 1:22 PM EST FYI- Insurance wants him to try generic Lidocaine patches for 30 days first. Please see below outcome. [facility]11-05-2024 Miscellaneous Notes* Telephone Encounter - Camilla Holt LPN - 01/04/2024 1:22 PM EST FYI- Insurance wants him to try generic Lidocaine patches for 30 days first. Please see below outcome. * Telephone Encounter - Camilla Holt LPN - 01/04/2024 1:21 PM EST Nick Wray (Munoz: [id number]) PA Rx #: [id number] Need Help? Call us at Outcome Denied today by [place] Medicaid 2017 Coverage is provided when the member has met the step therapy requirement for this medication. Steptherapy is a type of prior authorization (approval by your plan) that requires that you try one or more preferred drugs before you are approved for the drug requested. The requested medication requires the member to have a history of at least 30 days of therapy with generic Lidocaine patch. The [facility] Policy for Medical Necessity as posted on the [facility] website and [facility] Preferred Drug List criteria were reviewed and per [place] Administrative Code Rule 5160-1-01 (C) and (B), a medically necessary service must include: generally accepted standards of medical practice, be cl inically appropriate in administration, treatment and outcome and be the lowest cost alternative toeffectively treat the condition. Please contact your provider to assist you with other treatment options that might be covered under your benefit package, or other services that might be available through the community. Drug ZTlido 1.8% patches ePA cloud logo Form [place] Medicaid [employer] Electronic PA Form (2016 [facility]) Original Claim Info 75 documented in this encounterPaulding [facility] Hospital11-05-2024 Telephone encounter Note * Telephone Encounter - Camilla Holt LPN - 01/04/2024 1:21 PM EST Nick Wray (Munoz: [id number]) PA Rx #: [id number] Need Help? Call us at Outcome Denied today by [place] Medicaid 2017 Coverage is provided when the member has met the step therapy requirement for this medication. Steptherapy is a type of prior authorization (approval by your plan) that requires that you try one or more preferred drugs before you are approved for the drug requested. The requested medication requires the member to have a history of at least 30 days of therapy with generic Lidocaine patch. The [facility] Policy for Medical Necessity as posted on the [facility] website and [facility] Preferred Drug List criteria were reviewed and per [place] Administrative Code Rule 5160-1-01 (C) and (B), a medically necessary service must include: generally accepted standards of medical practice, be cl inically appropriate in administration, treatment and outcome and be the lowest cost alternative toeffectively treat the condition. Please contact your provider to assist you with other treatment options that might be covered under your benefit package, or other services that might be available through the community. Drug ZTlido 1.8% patches [facility] cloud logo Form [place] Medicaid [employer] Electronic PA Form (2016 [facility]) Original Claim Info 75 [facility]11-05-2024 History of Present illness Narrative* Rosalina Roman RT(R) - 01/04/2024 9:20 AM EST Radiology Service Progress Note PATIENT NAME: Nick Wray DATE OF SERVICE: January 04, 2024 TIME: 9:41 AM PATIENT IDENTITY VERIFICATION COMPLETED USING TWO (2) IDENTIFIERS: Name and Date of confirmedby patient verbally and Name and Date of confirmed by identification band. FALL SCREENING: Has the patient had 2 falls in the last year or 1 fall with injury or currently using an Ambulatory Assistive Device (Walker, Cane, Wheelchair, Crutches, etc.)? No PATIENT GENDER DATA: Male PATIENT RELEVANT IMPLANT DATA REVIEWED: Not Applicable PATIENT PRESENTS WITH AN IMPLANTABLE OR ATTACHED FRAMING CARPENTER: No RADIOLOGY DEPARTMENT: General X-ray: Exam(s) Completed: Lower Extremity X- Ray(s): Knee, AP / Lat / Tunne / Merchant Bilateral and Wt. Bearing and Feet, Bilateral and Wt. 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 Bearing and Feet, Bilateral and Wt. Bearing PERIPHERAL IV DATA: Not applicable SIGNED BY: GREGOR Uriarte) January 04, 2024 9:41 AMThe Orthopedic Specialty [id number] Instructions* Patient Instructions* Delmy Boyle MD - 01/04/2024 8:21 AM [...] questions at your visit. documented in this encounterPaulding County Hospital11-05-2024 History of Present illness Narrative* Delmy Boyle MD - 01/04/2024 8:20 AM EST Images from the original note were not [...] arthritic flares once every 4 months[address] Saw trim installer [address]. Jaime in [place] who did diagnostic knee aspiration which according to patient was positive for uric acid crystals. Treated with steroids and continued allopurinol. He has not seen Dr. Jaime since 2014. In 2014, he was hospitalized in [place] for acute polyarthritis. Saw trim installer while in hospital who told him that he possibly had RA. Discharged on steroids. His PCP switched him from allopurinol to Uloric Jan 2017. He also takes colchicine prn. No reduction in frequency or severity of his joint flares with Uloric. In 2016, he has been hospitalized 7-8 times for acute joint flares. Each timehe is treated with steroids. Hospitalized at [facility] Apr 2017 for acute flare of [...] shoulder surgery by Dr. Tc Coffey at [facility]. No post op complications. Was in PT 5. GENERAL HEALTH MAINTENANCE -continue follow up on his CKD with nephrology -he will follow up with his PCP for his general health issues FU 9 mon with me, sooner if needed INTERVAL HISTORY -we increased allopurinol to 750 mg daily after JOSY. Tolerating this dose without issues except fora flare of gout 06/2023. He was seen in [facility] for gout flare. Given steroid injection and discharged on prednisone taper (starting dose 60 mg daily). 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 Author [...] arthritic flares once every 4 months[address] trim installer [address] Jaime in [place] who did diagnostic knee aspiration which according to patient was positive for uric acid crystals. Treated with steroids and continued allopurinol. He has not seen Dr. Jaime since 2014. In 2014, he was hospitalized in [place] for acute polyarthritis. Saw trim installer while in hospital who told him that he possibly had RA. Discharged on steroids. His PCP switched him from allopurinol to Uloric Jan 2017. He also takes colchicine prn. No reduction in frequency or severity of his joint flares with Uloric. In 2017, he has been hospitalized 7-8 times for acute joint flares. Each time he is treated with steroids. Hospitalized at [facility] Apr 2017 for acute flare of [...] shoulder surgery by Dr. Tc Coffey at [facility]. No post op complications. Was in PT [...] of gout 06/2023. He was seen in [facility] for gout flare. Given steroid injection and [...] for: Numbness Negative for: (more content not included)...[facility]11-05-2024 Evaluation note* Diagnosis Chronic tophaceous gout- Primary Chronic [...] of other medications documented in this encounter [facility]10-16-2024 Telephone encounter Note* Telephone Encounter - Anayeli Mosquera - 12/15/2023 1:39 PM EDT [facility]uled [facility] [id number] Miscellaneous Notes* Telephone Encounter - Anayeli Mosuqera - 12/15/2023 1:39 PM EDT Scheduled * [...] routine medication follow up. documented in this encounterCitizens Memorial He[id number] Telephone encounter Note* Telephone Encounter - Anayeli Mosquera - 12/10/2023 11:18 AM EDT Spoke with pt he'll call back this week to schedule [facility] HealthcareJhgfikhejv23-52-3095 Telephone encounter Note* Telephone Encounter - ISIS Vera - 12/10/2023 11:11 AM EDT OARRS reviewed, Rx sent into patient's pharmacy. Please help pt get set up for an appt with Dr. Aceves in December for routine medication follow up. [facility] [id number] Telephone encounter Note* Telephone Encounter - ISIS Vera - 11/12/2023 7:47 AM EDT OARRS reviewed, Rx sent into patient's pharmacy. [facility] HealthcareTqaedokank12-38-7125 Miscellaneous Notes* Telephone Encounter - ISIS Vera - 11/12/2023 7:47 AM EDT OARRS reviewed, Rx sent into patient's pharmacy. * Telephone Encounter - Anayeli Mosquera - 11/11/2023 2:30 PM EDT Refill traMADol (Ultram) 50 MG tablet [facility] [place] documented in this encounterCitizens Memorial [id number] Telephone encounter Note* Telephone Encounter - Anayeli Mosquera - 11/11/2023 2:30 PM EDT Refill traMADol (Ultram) 50 MG tablet [facility] [place] [facility] [id number] Telephone encounter Note* Telephone Encounter - Camilla Holt LPN - 08/18/2023 8:50 AM EDT Mychart message sent to patient informing him he will have to follow up with Dr. Aceves for tramadol or oxycodone. per provider [facility]06-19-2024 Miscellaneous Notes* Telephone Encounter - Camilla [...] 08/05/2023 encounter. Please advise. documented in this encounterPaulding County Hospital06-19-2024 Telephone encounter Note * Telephone Encounter [...] can be forwarded to his pharmacy. Thx [facility]06-17-2024 Telephone encounter Note* Telephone Encounter - Caren Vogt LPN - 08/16/2023 1:04 PM EDT Patient requesting Tramadol refill due to flare. Updated Care Everywhere. Please see 08/05/2023 encounter. Please advise. [facility]05-09-[facility] Telephone encounter Note* Telephone Encounter - Delmy Boyle MD - 07/08/2023 12:45 PM EDT Duplicate request - see other encounter. [facility]05-09-2024 Miscellaneous Notes* Telephone Encounter - Delmy Boyle MD - 07/08/2023 12:45 PM EDT Duplicate request - see other encounter. documented in this encounterPaulding County Hospital05-09-2024 Telephone encounter Note * Telephone Encounter - Delmy Boyle MD - 07/08/2023 12:44 PM EDT Duplicate request - see other encounter. [facility]05-09-2024 Miscellaneous Notes* Telephone Encounter - Delmy Boyle MD - 07/08/2023 12:44 PM EDT Duplicate request - see other encounter. documented in this encounterPaulding County Hospital05-08-2024 Telephone encounter Note * Telephone Encounter [...] pharmacy and notify patient. Delmy Boyle MD [facility]05-08-2024 Miscellaneous Notes* Telephone Encounter - Delmy [...] for appointment if needed. documented in this encounterPaulding County Hospital05-08-2024 Telephone encounter Note * Telephone Encounter - Deidre Paz LPN - 07/07/2023 4:06 PM EDT Called and spoke to patient and let him know this was already refilled and it was a one time refillper Dr. Boyle's notes, Spoke to Coworker Craen Guillory LPN and was told to send to Dr. Boyle for review. Let patient know that I would sent message to doctor. Routed message to Dr. Boyle [facility]05-08-2024 Telephone encounter Note* Telephone Encounter - Haylee Mariee - 07/07/2023 10:39 AM EDT Patient called to check on refill status. Stated he has upcoming appointments. Also had a flare up this past weekend. Please call patient to advise. [facility]05-06-[facility] Telephone encounter Note* Telephone Encounter - Caren Vogt LPN - 07/05/2023 2:07 PM EDT One time order. Patient needs to call office for appointment if needed. [facility]04-25-[facility] History of Present illness Narrative* Delmy [...] arthritic flares once every 4 months[address] Saw trim installer [address]. Jaime in [place] who did diagnostic knee aspiration which according to patient was positive for uric acid crystals. Treated with steroids and continued allopurinol. He has not seen Dr. Jaime since 2014. In 2014, he was hospitalized in [place] for acute polyarthritis. Saw trim installer while in hospital who told him that he possibly had RA. Discharged on steroids. His PCP switched him from allopurinol to Uloric Jan 2017. He also takes colchicine prn. No reduction in frequency or severity of his joint flares with Uloric. In 2017, he has been hospitalized 7-8 times for acute joint flares. Each timehe is treated with steroids. Hospitalized at [facility] Apr 2017 for acute flare of [...] shoulder surgery by Dr. Tc Coffey at [facility]. No post op complications. 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 documented in this encounterPaulding County Hospital02-05-2024 Telephone encounter Note * Telephone Encounter - María Sepulveda MA - 04/05/2023 8:57 AM EST Nick called leaving a VM stating he hurt his back over the weekend and would like to know if he canget a muscle relaxer for it or if he will need an appointment for it? [facility] [id number] Miscellaneous Notes* Telephone Encounter - María Sepulveda MA - 04/05/2023 8:57 AM EST Nick called leaving a VM stating he hurt his back over the weekend and would like to know if he canget a muscle relaxer for it or if he will need an appointment for it? documented in this encounterCitizens Memorial He[id number] Miscellaneous Notes* Telephone Encounter - Delmy Boyle [...] - 11/13/2022 12:04 PM EDT Nick Brink Carloskalen is calling Delmy Boyle MD today stating that his PCP that is with [facility] is having technical difficulties and that their version of mychart is down along with the phone system. He needs a refill of a tapered prednisone sent to [facility] in [place], . Please advise. Patient has been identified by name and birthdate. Duration of symptoms: N/A Person calling: self Call patient at: at home [phone] (home) [phone] (cell) Was an appointment scheduled: No Closing statement: Results or non-symptom based questions: Thank you for calling [facility], your call will be returned within the next business day. [place] documented in this encounterPaulding County Hospital05-01-2023 Miscellaneous Notes* Telephone Encounter - Deidre [...] Days Visit Type Date Time Department [facility] 08/14/2022 11:40 AM [facility] CBC: None on file in the [...] [SQURIC] 07/13/22 09/12/22 01/01/22 Auth. provider: Delmy oByle MD Assoc. diagnoses: Idiopathic chronic gout of multiple sites with tophus, Encounter for long-term (current) use of medications documented in this encounterPaulding County Hospital02-01-2023 Miscellaneous Notes* Telephone Encounter - Delmy [...] Days Visit Type Date Time Department [facility] 08/14/2022 11:40 AM [facility] CBC: None on file in the [...] (current) use of medications documented in this encounterPaulding County Hospital11-03-2022 Instructions* Patient Instructions* Delmy Boyle MD [...] questions at your visit. documented in this encounterPaulding County Hospital11-03-2022 History of Present illness Narrative* Delmy [...] arthritic flares once every 4 months[address] Jaime in [place] who did diagnostic knee aspiration which according to patient was positive for uric acid crystals. Treated with steroids and continued allopurinol. He has not seen Dr. Jaime since 2014. In 2014, he was hospitalized in [place] for acute polyarthritis. Saw trim installer while in hospital who told him that he possibly had RA. Discharged on steroids. His PCP switched him from allopurinol to Uloric Jan 2017. He also takes colchicine prn. No reduction in frequency or severity of his joint flares with Uloric. In 2017, he has been hospitalized 7-8 times for acute joint flares. Each timehe is treated with steroids. Hospitalized at [facility] Apr 2017 for acute flare of [...] shoulder surgery by Dr. Tc Coffey at [facility]. No post op complications. 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 CBC: None on file in the [...] Instance) Lab Orders None documented in this encounterPaulding County Hospital10-12-2022 Discharge summary Author Nicola pelayo [facility] December 10, 2021 10:19amNote Date/TimeOct2021 10:19amDel[place] [address] Discharge Summary Signed Patient: Nick Wray MR#: [id number] : 1990 Acct:[id number] Age/Sex: 31 / M Adm Date: 2 Loc: Room: [address] [place] [address]: Adam Young MD Copies to: MD Adam Law MD Rugen M Alda, MD~ Providers Date of Discharge: 12/10/21 Discharging Provider: Jhony Leyva Primary Care Provider: Ledyi Aceves Consults: 12/07/21 15:40 Consult to Case Management Routine Discharge Diagnosis (1) Major depressive disorder, recurrent, moderate: Final Diagnosis Final Discharge Diagnosis: MDD Summary Hospital Course Hospital course: Mr. Wray is a 31 year old male for depression and suicidal ideation.? Saysover the weekend hewas drinking excessively and got into an argument [...] called EMS and he was taken to [facility] and subsequently brought here.? He [...] is eating okay.? Rates his depression today 10 and anxiety 11/08.? Says that most of his depression is because he is here in the hospital and away from his family.? Says he feels like a terrible father and is worried about losing his job.? He isanxious about getting home.? Denies suicidal and homicidal [...] services available to him while on the unitand was encouraged to participate. Patient regrets makingsuicidal [...] attending inpatient treatment and was suitable for outpatientfollow up. He understands how to utilize resources suchas calling the hotline if he has any SI/HI. He learned how to stay positive and manage his stress in a healthier way. I explained to the patientthat discharge from the hospital does not mean that medical care ends here. He needs consistent outpatient psychiatric follow-up, cognitive behavioral therapy, and PCP visits to ensure stability of symptoms. His three wishes include maintain better health, keep a positive outlook in life, and makegood money Discharge disposition Home with his . [...] protective and risk factors was conducted during thisadmission. Discussed with the patient the following recommendations that would help reduce suicide which include limiting the numberof pills to a 14-day supply with one refill at the time of discharge to avoid potential overdose, involving family members in his care, consistent outpatient follow uppreferably within seven days of release, and his [...] to help him long-term safety. The patient isnot suicidal or psychotic now. To help decrease his suicide risk, as best I can, I am referring himfor outpatient treatment including but not limited to medication management for long-term follow-upto have somewhere to go and someone to [...] activity restrictions. 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 (insert date/time here) Intake: (Insert date/time here) Please bring a copy of your photo ID, insurance card, and proof of household income.? Psychiatry: (Insert date/time here) Group: (Insert date/time here ) ) Documented By: Nicola Leyva MD 2 [id number] Signed By: <Electronically signed by Nicola Leyva MD> 12/10/21 1019 [facility] Work Phone: 1(169) 915-693410-11-2022 Progress note Author Nicola pelayo [facility] December 09, 2021 10:42amNote Date/TimeOct2021 8:48amRobert Ville [id number] Psychiatry Progress Note Signed Patient: Nick Wray MR#: [id number] : 1990 Acct:[id number] Age/Sex: 31 / M Adm Date: 2 Loc: 1S Room: [address] [place] [address] Type : ADM IN Attending Dr: Adam [...] one-on-one sessions will be better for him becausehe does not like being around other patients with different mental illness from him. He rates his depression 09/07 and anxiety 11/08. Says he is mostly having anxiety because he is thinking about work and being away from his family. Patient was personally seen by me on the day of the encounter. I reviewed the history and performedthe munoz elements of the assessment. I formulated the planof care and confirmed this with the Resident as noted below Patient stated that he is feeling better today. He would like a medication to help with alcohol usecravings. Says his came to visit him yesterday and hewas excited about that and it made him more hopeful to get help. He says he is looking forward to getting a therapist or psychiatrist when heleaves and getting help for his alcohol addiction. [...] treatments with the therapist or psychiatrist to gettinghelp for his alcohol addiction. He says outpatient treatment will be more effective for him since being in the hospital during group sessions is not as effective for him. He continues to feel anxiousand guilty about being away from his family [...] signed by Nicola Leyva MD> 12/09/21 1042 [facility] Work Phone: 1(201) 522-249010-10-2022 History and physical note Author Nicola pelayo [facility] December 08, 2021 1:32pmNote Date/TimeOct2021 12:43pmDelmar[place] [address] Psychiatry H&P Signed Patient: Nick Wray MR#: [id number] : 1990 Acct:[id number] Age/Sex: 31 / M Adm Date: 2 Loc: Room: [address] [place] [address] Type: ADM IN Attending Dr: Adam Young [...] who then kicked him out of the houseand sometimes to his father's house. Says he was drinking heavily at his father's house and had made some comments ofwhich he cannot remember too well. Says he might of said he will soon his cousin is of whom has passed. Concerned for his safety his father called EMS and he was taken to [facility] and subsequently brought here. He says that he did not actually have a plan to hurt himself. Cassandra admit to an attempted suicide back in 2014 with a gun that he owns. He says he could not follow through with it. He said he has made some similar comments in 2016 about endinghis life. He says he drinks 3-4 nights in a week about 6 beers. He does admit to drinking more on the weekends, roughlyover 12 pack. He denies feeling worthless, hopeless, anhedonia. mojgan was personally seen by me on the day of the encounter.? I reviewed the history and performedthe munoz elements of the assessment.? 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 Review of symptoms: Constitutional: Denies [...] <Electronically signed by Nicola Leyva MD> 12/08/21 [address] [facility] Work Phone: 1(607) 327-667402-25-2018 History of Past illness Narrative* Problem Noted DateResolved DateRheumatoid arthritis flare documented as of this encounter (statuses as of 08/05/2021) [facility] History of Past illness Narrative* ProblemNoted Date Resolved DateRheumatoid arthritis flaredocumented as of this encounter (statuses as of 12/22/2021) [facility]2018 History of Past illness Narrative* ProblemNoted Date Resolved DateRheumatoid arthritis flaredocumented as of this encounter (statuses as of 01/01/2022) [facility]2018 History of Past illness Narrative* ProblemNoted Date Resolved DateRheumatoid arthritis flaredocumented as of this encounter (statuses as of 04/02/2022) [facility]2018 History of Past illness Narrative* ProblemNoted Date Resolved DateRheumatoid arthritis flaredocumented as of this encounter (statuses as of 06/30/2022) [facility]2018 History of Past illness Narrative* ProblemNoted Date Diagnosed DateResolved DateRheumatoid arthritis flare documented as of this encounter (statuses as of 11/14/2022) [facility]2018 History of Past illness Narrative* ProblemNoted Date Diagnosed DateResolved DateRheumatoid arthritis flare documented as of this encounter (statuses as of 11/14/2022) [facility] Diagnosis 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) documented [facility] this encounter [facility] noteNo assessment information availableOhio[facility] Work Phone: Evaluation note* Diagnosis Onset Date Resolution Status Major depressive disorder, recurrent, mo derate acute [facility] Work Phone: Evaluation note* Diagnosis 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) documented [facility] this encounter [facility]* Diagnosis Idiopathic chronic gout of multiple sites with tophus- Primary Chronic gouty arthropathy with tophus (tophi) Encounter for long-term (current) use of medications Encounter for long-term (current) use of other medications Stage 3 chronic kidney disease, unspecified whether stage 3a or 3b CKD (HCC) [facility] Diagnosis 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) [facility] Diagnosis 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) [facility]* Diagnosis Other chronic pain- Primary documented in this encounter [facility]* Diagnosis Chronic tophaceous gout- Primary Chronic gouty arthropathy with tophus (tophi) Encounter for long-term (current) use of medications Encounter for long-term (current) use of other medications Stage 3 chronic kidney disease, unspecified whether stage 3a or 3b CKD (HCC) 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) [facility] Diagnosis 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) documented [facility] encounter [facility]* Diagnosis 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) [facility]* Diagnosis Onset Date Resolution Status Acute pansinusitis acute [facility] Work Phone: Evaluation note* Diagnosis Anxiety Anxiety state, unspecified documented in this encounter [facility] HealthcareEvaluation note* Diagnosis Anxiety- Primary Anxiety state, [...] of other medications [facility] Diagnosis Anxiety- Primary Anxiety state, [...] sites with positive rheumatoid factor (CMS/HCC)- Primary Other chronic pain Essential hypertension (CMS/HCC) Unspecified essential hypertension [facility]* Diagnosis Anxiety- Primary Anxiety state, unspecified Other chronic pain Adjustment disorder with depressed mood Adjustment disorder with depressed mood Essential hypertension Unspecified essential hypertension Anxiety- Primary Anxiety state, unspecified Accidental overdose, initial encounter Stage 3a chronic kidney disease (CMS-HCC) Rheumatoid arthritis involving multiple sites with positive rheumatoid factor (HCC) COVID-19 virus infection- Primary Idiopathic chronic gout of multiple sites with tophus Stage 3a chronic kidney disease (CMS-HCC) Essential hypertension Unspecified essential hypertension Immunodeficiency, unspecified (HCC) Rheumatoid arthritis involving multiple sites with positive rheumatoid factor (HCC) Anxiety Anxiety state, unspecified Rheumatoid arthritis involving multiple sites with positive rheumatoid factor (HCC) [facility]* Diagnosis Anxiety- Primary Anxiety state, unspecified Other chronic pain Adjustment disorder with depressed mood Adjustment disorder with depressed mood Essential hypertension Unspecified essential hypertension Anxiety- Primary Anxiety state, unspecified Accidental overdose, initial encounter Stage 3a chronic kidney disease (CMS-HCC) Rheumatoid arthritis involving multiple sites with positive rheumatoid factor (HCC) COVID-19 virus infection- Primary Idiopathic chronic gout of multiple sites with tophus Stage 3a chronic kidney disease (CMS-HCC) Essential hypertension Unspecified essential hypertension Immunodeficiency, unspecified (HCC) Rheumatoid arthritis involving multiple sites with positive rheumatoid factor (HCC) Anxiety Anxiety state, unspecified Open wound of left lower leg, subsequent encounter- Primary Encounter for removal of sutures [facility]* Diagnosis Anxiety- Primary Anxiety state, unspecified Other chronic pain Adjustment disorder with depressed mood Adjustment disorder with depressed mood Essential hypertension Unspecified essential hypertension Anxiety- Primary Anxiety state, unspecified Accidental overdose, initial encounter Stage 3a chronic kidney disease (CMS-HCC) Rheumatoid arthritis involving multiple sites with positive rheumatoid factor (HCC) COVID-19 virus infection- Primary Idiopathic chronic gout of multiple sites with tophus Stage 3a chronic kidney disease (CMS-HCC) Essential hypertension Unspecified essential hypertension Immunodeficiency, unspecified (HCC) Rheumatoid arthritis involving multiple sites with positive rheumatoid factor (HCC) Anxiety Anxiety state, unspecified Rheumatoid arthritis involving multiple sites with positive rheumatoid factor (HCC) [facility]* Diagnosis Anxiety- Primary Anxiety state, unspecified Other chronic pain Adjustment disorder with depressed mood Adjustment disorder with depressed mood Essential hypertension Unspecified essential hypertension Anxiety- Primary Anxiety state, unspecified Accidental overdose, initial encounter Stage 3a chronic kidney disease (CMS-HCC) Rheumatoid arthritis involving multiple sites with positive rheumatoid factor (HCC) COVID-19 virus infection- Primary Idiopathic chronic gout of multiple sites with tophus Stage 3a chronic kidney disease (CMS-HCC) Essential hypertension Unspecified essential hypertension Immunodeficiency, unspecified (HCC) Rheumatoid arthritis involving multiple sites with positive rheumatoid factor (HCC) Anxiety Anxiety state, unspecified Rheumatoid arthritis involving multiple sites with positive rheumatoid factor (HCC) documented [facility]* Diagnosis 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) [facility] Diagnosis Anxiety- Primary Anxiety state, unspecified Other chronic pain Adjustment disorder with depressed mood Adjustment disorder with depressed mood Essential hypertension Unspecified essential hypertension Anxiety- Primary Anxiety state, unspecified Accidental overdose, initial encounter Stage 3a chronic kidney disease (CMS-HCC) Rheumatoid arthritis involving multiple sites with positive rheumatoid factor (HCC) COVID-19 virus infection- Primary Idiopathic chronic gout of multiple sites with tophus Stage 3a chronic kidney disease (CMS-HCC) Essential hypertension Unspecified essential hypertension Immunodeficiency, unspecified (HCC) Rheumatoid arthritis involving multiple sites with positive rheumatoid factor (HCC) Anxiety Anxiety state, unspecified Essential hypertension- Primary Unspecified essential hypertension Rheumatoid arthritis involving multiple sites with positive rheumatoid factor (HCC) [facility]* Diagnosis Idiopathic chronic gout of multiple sites with tophus- Primary Chronic gouty arthropathy with tophus (tophi) [facility] Diagnosis Anxiety- Primary Anxiety state, unspecified Other chronic pain Adjustment disorder with depressed mood Essential hypertension Unspecified essential hypertension Anxiety- Primary Anxiety state, unspecified Accidental overdose, initial encounter Stage 3a chronic kidney disease (CMS-HCC) Rheumatoid arthritis involving multiple sites with positive rheumatoid factor (HCC) COVID-19 virus infection- Primary Idiopathic chronic gout of multiple sites with tophus Stage 3a chronic kidney disease (CMS-HCC) Essential hypertension Unspecified essential hypertension Immunodeficiency, unspecified (HCC) Rheumatoid arthritis involving multiple sites with positive rheumatoid factor (HCC) Anxiety Anxiety state, unspecified Rheumatoid arthritis involving multiple sites with positive rheumatoid factor (HCC) documented in this encounter [facility] HealthcareHospital Discharge instructions Additional Instructions Rest Apply ice to affected area Avoid electronics Follow-up with neurology on Wednesday Tylenol Motrin if needed for discomfort Return here if you develop any numbness, tingling, unilateral weakness, unsteady gait, confusion or any other concernsOhio[facility] Work Phone: Hospital Discharge instructions Additional Instructions Regular diet. No activity restrictions.[facility] Work Phone: Reason for referral (narrative)* Diagnostic Procedure Only (Routine) - ClosedSpecialtyDiagnoses / ProceduresReferred By Contact Referred To ContactXR IMAGING Diagnoses Chronic tophaceous gout Encounter for long-term (current) use of medications Procedures XR FOOT GENERAL 3V AP/LAT/OBL BILATERAL RADEX FOOT COMPLETE MINIMUM [address] [place] [address] [place] [address] [place] [address] Referral IDStatusReasonStart DateExpiration DateVisits RequestedVisits [id number] Auto-Generated Referral * Diagnostic Procedure Only (Routine) - ClosedSpecialtyDiagnoses / Procedures Referred By ContactReferred To ContactXR IMAGING Diagnoses 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 Procedures XR KNEE GENERAL 4V AP BOTH/PA BOTH/LAT/MERC BILATERAL RADIOLOGIC EXAM KNEE COMPLETE 4/[place] [address] [place] [address] [place] [address] Referral IDStatusReasonStart DateExpiration DateVisits RequestedVisits [id number] Auto-Generated Referral [facility] N[facility]* [place] Prior Authorization (Routine) - AuthorizedSpecialtyDiagnoses / ProceduresReferred By ContactReferred To Contact Diagnoses Idiopathic chronic gout of multiple sites with tophus Procedures [place] [address] [place] [address] Phone: tel: fax: Hematology [address] [place] [address] Phone: tel: Referral IDStatusReasonStart DateExpiration DateVisits RequestedVisits [id number]/8/20252/20/[id number] [facility] Summary Purpose Family History No Family History Records Found Relationship Condition Age at Onset Recorded Date/T vish father Hypertension Unknown Ingrown nailUnknownNot SpecifiedHypertensionUnknownbrotherHypertensionUnknown sisterHypertensionUnknownDepressionUnknownfamily memberGoutUnknownSuicideUnknown Advance Directives No Advanced Directives Records FoundDocuments on File TypeDate RecordedPatient RepresentativeExplanationAdvance Directive(s)04/25/2017 12:32 PM Advance Directive Response Recorded Date/ Time Advance Directives No September 27 7:04pm Chief Complaint and Reason for Visit Chief Complaint sent by [facility]/blurry vision/head swell Chief Complaint sent by [facility]/blurry vision/head swell Major DepressionReason for VisitMajor depressive disorder, recurrent, moderate Chief Complaint BH eye irritation, runny nose, sore throatReason for VisitAcute pansinusitis Reason for Referral SpecialtyDiagnoses / ProceduresReferred By ContactReferred To Contact Diagnoses Stage 3 chronic kidney disease, unspecified whether stage 3a or 3b CKD (HCC) Other secondary [place] [address] [place] [address] Referral IDStatusReasonStart DateExpiration DateVisits RequestedVisits [id number]/[id number] / Procedures Referred By ContactReferred To ContactXR IMAGING Diagnoses 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 Procedures XR KNEE GENERAL 4V AP BOTH/PA BOTH/LAT/MERC BILATERAL RADIOLOGIC EXAM KNEE COMPLETE 4/[place] [address] [place] [address] [place] [address] Referral IDStatusReasonStlulu DateExpiration DateVisits RequestedVisits [id number] Auto-Generated Referral [id number] / ProceduresReferred By ContactReferred To ContactOrthopedics Diagnoses Other secondary osteoarthritis of multiple sites Procedures CONSULT TO [facility]THOPAEDICS OFFICE[facility] 60 MINUTES Del[place] Boyle [place] [id number] [place] [address] Referral IDStatusReasonStlulu DateExpiration DateVisits RequestedVisits [id number] PCP Requested Referral [id number] / ProceduresReferred By ContactReferred To ContactXR IMAGING Diagnoses Chronic tophaceous gout Encounter for long-term (current) use of medications Procedures XR FOOT GENERAL 3V AP/LAT/OBL BILATERAL RADEX FOOT COMPLETE MINIMUM 3 VIEWS Delmy Boyle [place] [id number] [place] [address] [place] [address] Referral IDStatusReasonStlulu DateExpiration DateVisits RequestedVisits [id number] Auto-Generated Referral Additional Source Comments (unrecognized sect ion and content) No Status Records FoundNo Status Records FoundNo Status Records FoundNo Status Records FoundNo Status Records FoundNo Status Records FoundNo Status Records FoundNo Status Records FoundNo Status Records Found INFORMATION SOURCE (unrecogn ized section and content) DATE CREATED AUTHOR 07/23/2018 [facility] DATE CREATED AUTHOR AUTHOR'S ORGANIZ ATION 11/11/2021 [facility] DATE CREATED AUTHOR AUTHOR'S ORGANIZ ATION 08/07/2022 [facility] DATE CREATED AUTHOR AUTHOR'S ORGANIZ ATION 2023 [facility] DATE CREATED AUTHOR AUTHOR'S ORGANIZ ATION 02/26/2023 [facility] DATE CREATED AUTHOR AUTHOR'S ORGANIZ ATION 09/13/2023 [facility] DATE CREATED AUTHOR AUTHOR'S ORGANIZ ATION 01/05/2024 [facility] DATE CREATED AUTHOR AUTHOR'S ORGANIZ ATION 11/09/2024 [facility] DATE CREATED AUTHOR AUTHOR'S ORGANIZ ATION 12/12/2024 [facility] Source Comments (unrecognize d section and content) In the event this informatio n is protected by the Federal Confidentiality of Alcohol and Drug Abuse Patient Records regulations: The Federal rules restrict any use of the information to criminally investigate or prosecute any alcohol or drug abuse patient.[facility] the event this information is protected by the Federal Confidentiality of Alcohol and Drug Abuse Patient Records regulations: The Federal rules restrict any use of the information to criminally investigate or prosecute any alcohol or drug abuse patient.[facility] HospitalIn the event this information is protected by the Federal Confidentiality of Alcohol and Drug Abuse Patient Records regulations: The Federal rules restrict any use of the information to criminally investigate or prosecute any alcohol or drug abuse patient.[facility] HospitalIn the event this information is protected by the Federal Confidentiality of Alcohol and Drug Abuse Patient Records regulations: The Federal rules restrict any use of the information to criminally investigate or prosecute any alcohol or drug abuse patient.[facility] HospitalIn the event this information is protected by the Federal Confidentiality of Alcohol and Drug Abuse Patient Records regulations: The Federal rules restrict any use of the information to criminally investigate or prosecute any alcohol or drug abuse patient.[facility] HospitalIn the event this information is protected by the Federal Confidentiality of Alcohol and Drug Abuse Patient Records regulations: The Federal rules restrict any use of the information to criminally investigate or prosecute any alcohol or drug abuse patient.[facility] HospitalIn the event this information is protected by the Federal Confidentiality of Alcohol and Drug Abuse Patient Records regulations: The Federal rules restrict any use of the information to criminally investigate or prosecute any alcohol or drug abuse patient.[facility] HospitalIn the event this information is protected by the Federal Confidentiality of Alcohol and Drug Abuse Patient Records regulations: The Federal rules restrict any use of the information to criminally investigate or prosecute any alcohol or drug abuse patient.[facility] HospitalIn the event this information is protected by the Federal Confidentiality of Alcohol and Drug Abuse Patient Records regulations: The Federal rules restrict any use of the information to criminally investigate or prosecute any alcohol or drug abuse patient.[facility] HospitalIn the event this information is protected by the Federal Confidentiality of Alcohol and Drug Abuse Patient Records regulations: The Federal rules restrict any use of the information to criminally investigate or prosecute any alcohol or drug abuse patient.[facility] HospitalIn the event this information is protected by the Federal Confidentiality of Alcohol and Drug Abuse Patient Records regulations: The Federal rules restrict any use of the information to criminally investigate or prosecute any alcohol or drug abuse patient.[facility] HospitalIn the event this information is protected by the Federal Confidentiality of Alcohol and Drug Abuse Patient Records regulations: The Federal rules restrict any use of the information to criminally investigate or prosecute any alcohol or drug abuse patient.[facility] HospitalIn the event this information is protected by the Federal Confidentiality of Alcohol and Drug Abuse Patient Records regulations: The Federal rules restrict any use of the information to criminally investigate or prosecute any alcohol or drug abuse patient.[facility] HospitalIn the event this information is protected by the Federal Confidentiality of Alcohol and Drug Abuse Patient Records regulations: The Federal rules restrict any use of the information to criminally investigate or prosecute any alcohol or drug abuse patient.[facility] HospitalIn the event this information is protected by the Federal Confidentiality of Alcohol and Drug Abuse Patient Records regulations: The Federal rules restrict any use of the information to criminally investigate or prosecute any alcohol or drug abuse patient.[facility] HospitalIn the event this information is protected by the Federal Confidentiality of Alcohol and Drug Abuse Patient Records regulations: The Federal rules restrict any use of the information to criminally investigate or prosecute any alcohol or drug abuse patient.[facility] HospitalIn the event this information is protected by the Federal Confidentiality of Alcohol and Drug Abuse Patient Records regulations: The Federal rules restrict any use of the information to criminally investigate or prosecute any alcohol or drug abuse patient.[facility] HospitalIn the event this information is protected by the Federal Confidentiality of Alcohol and Drug Abuse Patient Records regulations: The Federal rules restrict any use of the information to criminally investigate or prosecute any alcohol or drug abuse patient.[facility] HospitalIn the event this information is protected by the Federal Confidentiality of Alcohol and Drug Abuse Patient Records regulations: The Federal rules restrict any use of the information to criminally investigate or prosecute any alcohol or drug abuse patient.[facility] HospitalIn the event this information is protected by the Federal Confidentiality of Alcohol and Drug Abuse Patient Records regulations: The Federal rules restrict any use of the information to criminally investigate or prosecute any alcohol or drug abuse patient.[facility] HospitalIn the event this information is protected by the Federal Confidentiality of Alcohol and Drug Abuse Patient Records regulations: The Federal rules restrict any use of the information to criminally investigate or prosecute any alcohol or drug abuse patient.[facility] HospitalIn the event this information is protected by the Federal Confidentiality of Alcohol and Drug Abuse Patient Records regulations: The Federal rules restrict any use of the information to criminally investigate or prosecute any alcohol or drug abuse patient.[facility] Care Teams (unrecognized sec tion and content) Team Status: Active Member Role Status Dates Leydi Aceves MD Primary Care Provider Active Team Status: Active Member Role Status Dates Leydi Aceves MD Primary Care Provider Active S tart: August 03, 2023 Nicola Leyva MDAttending ProviderActiveStart: August 03, 2023 Team Status: Inactive Member Role Status Dates Leydi Aceves MD Primary Care Provider Active S tart: August 22, 2023 End: August 21Ernestina Robert ProviderActiveStart: August 22, 2023 End: August 22, 2023Team MemberRelationshipSpecialtyStart DateEnd Date [facility]ves [facility] Pmnswvlo34/9/15 Team Status: Inactive Member Role Status Dates Leydi Aceves MD Primary Care Provider Active Juvenal Smith MDEmeprovidence [facility] ProviderActive Team Status: Inactive Member Role Status Dates Leydi Aceves MD Primary Care Provider Active Samantha Penny Provider, Attending ProviderActiveTeam Member RelationshipSpecialtyStart DateEnd Date Leydi Aceves PCP - GeneralFami Fsfaugcv99/9/15Team MemberRelationshipSpecialtyStart DateEnd Date Leydi Acevesy PCP - Generalmi Csgdfqhf50/9/15Team MemberRelationshipSpecialtyStart DateEnd Date Leydi Acevesy PCP - GeneralFabaystate [facility] Snhoswij59/9/15Team MemberRelationshipSpecialtyStart DateEnd Date Leydi Acevesy [facility]01/07/15Te MemberRelationshipSpecialtyStart DateEnd Date Leydi Aceves MD [facility]01/07/15Te MemberRelationshipSpecialtyStart DateEnd Date Leydi Aceves MD [facility]01/07/15Te MemberRelationshipSpecialtyStart DateEnd Date Leydi Aceves MD [address] [facility] [address] [place] [address] [facility]07/29/22 Leydi Aceves MD [address] [facility] [address] [place] [address] [facility]05/30/22Te MemberRelationshipSpecialtyStart DateEnd Date Leydi Aceves MD [address] [facility] [address] [place] [address] [facility]07/29/22 Leydi Aceves MD [address] [facility] [address] [place] [address] [facility]05/30/22Team MemberRelationshipSpecialtyStart DateEnd Date Leydi Aceves MD [facility]01/07/15Te MemberRelationshipSpecialtyStart DateEnd Date Leydi Aceves MD PCP - [facility]01/07/15Team MemberRelationshipSpecialtyStart DateEnd Date Leydi Aceves MD PCP - [facility]01/07/15Te MemberRelationshipSpecialtyStart DateEnd Date Leydi Aceves MD [address] [place] [address] PCP - [facility]07/29/22 Leydi Aceves MD [address] [place] [address] [facility]05/30/22Wednesday, [place], [employer] [address] [place] [address] Licensed P[facility] NurseS[facility]06/04/23Team MemberRelationshipSpecialty Start DateEnd Date Leydi Aceves MD [address] [place] [address] [facility] - [facility] [facility]22 Leydi Aceves MD [address] [place] [address] [facility]05/30/22Wednesday, [place], [employer]ING ASSOC[employer]ATE [address] [place] [address] [facility]06/04/23Team MemberRelationshipSpecialty Start DateEnd Date Leydi Aceves MD [address] [place] [address] PCP - [facility]07/29/22 Leydi Aceves MD [address] [place] [address] PCP - [facility]05/30/22Wednesday, [place], [employer] MANU[employer]URING ASSOCIATE [address] [place] [address] Licensed Practical NurseFamily Medicine06/04/23Team MemberRelationshipSpecialty Start DateEnd Date Leydi Aceves MD PCP - [facility]01/07/15Team MemberRelationshipSpecialtyStart DateEnd Date Leydi Aceves MD PCP - [facility]01/07/15Team MemberRelationshipSpecialtyStart DateEnd Date Leydi Aceves MD PCP - [facility]01/07/15Team MemberRelationshipSpecialtyStart DateEnd Date Leydi Aceves MD [address] [place] [address] PCP - [facility]07/29/22 Leydi Aceves MD [address] [place] [address] PCP - [facility]05/30/22Wednesday, [place], [employer]URING ASSOCIATE [address] [place] [address] [facility]06/04/23Team MemberRelationshipSpecialty Start DateEnd Date Leydi Aceves MD [address] [place] [address] PCP - [facility] Medicine07/29/22 Leydi Aceves MD [address] [place] [address] PCP - [facility]05/30/22Wednesday, [place], [employer]URING ASSOCIATE [address] [place] [address] [facility] Medicine06/04/23Team MemberRelationshipSpecialty Start DateEnd Date Leydi Aceves MD [address] [place] [address] PCP - [facility]07/29/22 Leydi Aceves MD [address] [place] [address] PCP [facility]05/30/22Wednesday, [place] [employer]ING ASSOCIATE [address] [place] [address] [facility]06/04/23Team MemberRelationshipSpecialty Start DateEnd Date Leydi Aceves MD [address] [place] [address] PCP - [facility]07/29/22 Leydi Aceves MD [address] [place] [address] PCP [facility]05/30/22Wednesday, [place], AD[employer]ED MANU[employer]URING ASSOCIATE [address] [place] [address] Licensed [facility]06/04/23Team MemberRelationshipSpecialty Start DateEnd Date Leydi Aceves MD [address] [place] [address] PCP - [facility]07/29/22 Leydi Aceves MD [address] [place] [address] [facility]05/30/22Wednesday, [place], AD[employer]ED MANU[employer]URING ASSOCIATE [address] [place] [address] Licensed [facility]06/04/23Team MemberRelationshipSpecialty Start DateEnd Date Leydi Aceves MD [address] [place] [address] [facility]07/29/22 Leydi Aceves MD [address] [place] [address] [facility]05/30/22Wednesday, [place], ADV[employer]ED [employer]URING ASSOCIATE [address] [place] [address] Licensed [facility]06/04/23Te MemberRelationshipSpecialty Start DateEnd Date Leydi Aceves MD [address] [place] [address] [facility]07/29/22 Leydi Aceves MD [address] [place] [address] [facility]05/30/22Wednesday, [place], AD[employer]ED MANU[employer]URING ASSOCIATE [address] [place] [address] Licensed Practical NurseFamily Medicine06/04/23Team MemberRelationshipSpecialty Start DateEnd Date Leydi Aceves MD [address] [place] [address] [facility]07/29/22 Leydi Aceves MD [address] [place] [address] [facility]05/30/22 Jayne Del Valle, RN Licensed Practical NurseFamily Medicine04/07/24Team MemberRelationshipSpecialty Start DateEnd Date Leydi Aceves MD [address] [place] [address] PCP - [facility]07/29/22 Leydi Aceves MD [address] [place] [address] [facility]05/30/22 Jayne Del Valle, RN Licensed Practical Nursemily Medicine04/07/24Team MemberRelationshipSpecialty Start DateEnd Date Leydi Aceves MD [address] [place] [address] PCP - [facility] Medicine07/29/22 Leydi Aceves MD [address] [place] [address] PCP [facility]05/30/22 Jayne Del Valle, RN Licensed Practical NurseFamily Medicine04/07/24Team MemberRelationshipSpecialty Start DateEnd Date Leydi Aceves MD [address] [place] [address] [facility]07/29/22 Leydi Aceves MD [address] [place] [address] [facility]05/30/22 Jayne Del Valle, RN Licensed Practical NurseFamily Medicine04/07/24Team MemberRelationshipSpecialty Start DateEnd Date Leydi Aceves MD [address] [facility] [address] [place] [address] PCP - [facility] Medicine07/29/22 Leydi Aceves MD [address] [facility] [address] [place] [address] [facility]05/30/22 Jayne Del Valle, DELMIS Licensed Practical NurseFamily Medicine04/07/24Team MemberRelationshipSpecialty Start DateEnd Date Leydi Aceves MD [address] [facility] [address] [place] [address] PCP - [facility] Medicine07/29/22 Leydi Aceves MD [address] [place] [address] [facility]05/30/22 Merry Paz LPN 05/19/24Team MemberRelationshipSpecialtyStart DateEnd Date Leydi Aceves MD [address] [place] [address] PCP - [facility]07/29/22 Leydi Aceves MD [address] [place] [address] PCP - [facility]05/30/22 Merry Paz, [facility] 05/19/24Team MemberRelationshipSpecialtyStart DateEnd Date Leydi Aceves MD [address] [place] [address] PCP - [facility]07/29/22 Leydi Aceves MD [address] [facility] [address] [place] [address] PCP [facility]05/30/22 Diego Pazika, [facility] 05/19/24Team MemberRelationshipSpecialtyStart DateEnd Date Leydi Aceves MD [address] [facility] [address] [place] [address] PCP - [facility]07/29/22 Leydi Aceves MD [address] [facility] [address] [place] [address] PCP [facility]05/30/22 Merry Paz, [facility] 05/19/24Team MemberRelationshipSpecialtyStart DateEnd Date Leydi Aceves MD [address] [place] [address] PCP - [facility]07/29/22 Leydi Aceves MD [address] [place] [address] PCP - [facility]05/30/22 [place] [facility] 05/19/24Team MemberRelationshipSpecialtyStart DateEnd Date Leydi Aceves MD [address] [place] [address] PCP - [facility]07/29/22 Leydi Aceves MD [address] [place] [address] PCP [facility]05/30/22 [facility] 05/19/24Team MemberRelationshipSpecialtyStart DateEnd Date Leydi Aceves MD [address] [facility] [address] [place] [address] PCP - [facility]07/29/22 Leydi Aceves MD [address] [facility] [address] [place] [address] PCP - [facility]05/30/22 [facility] 05/19/24Team MemberRelationshipSpecialtyStart DateEnd Date Leydi Aceves MD [address] [place] [address] PCP - [facility]07/29/22 Leydi Aceves MD [address] [facility] [address] [place] [address] PCP [facility]05/30/22 [place] [facility], [facility] 05/19/24Team MemberRelationshipSpecialtyStart DateEnd Date Leydi Aceves MD [address] [place] [address] PCP - [facility]07/29/22 Leydi Aceves MD [address] [place] [address] PCP [facility]05/30/22 Merry Paz LPN [address] [place] [address] 05/19/24Team MemberRelationshipSpecialtyStart DateEnd Date Leydi Aceves MD [address] [place] [address] PCP - [facility]07/29/22 Leydi Aceves MD [address] [place] [address] [facility]05/30/22 Merry Paz LPN [address] [place] [address] 05/19/24Team MemberRelationshipSpecialtyStart DateEnd Date Leydi Aceves MD [address] [place] [address] PCP - [facility]07/29/22 Leydi Aceves MD [address] [place] [address] [facility]05/30/22 Merry Paz LPN [address] [place] [address] 05/19/24Team MemberRelationshipSpecialtyStart DateEnd Date Leydi Aceves MD [address] [place] [address] PCP - [facility]07/29/22 Leydi Aceves MD [address] [place] [address] [facility]05/30/22 Merry Paz LPN [address] [place] [address] 05/19/24Team MemberRelationshipSpecialtyStart DateEnd Date Leydi Aceves MD [address] [place] [address] PCP - [facility]07/29/22 Leydi Aceves MD [address] [place] [address] [facility]05/30/22 Merry Paz AD[employer]ED MANUFACTURING ASSOCIATE [address] [place] [address] 05/19/24Team MemberRelationshipSpecialtyStart DateEnd Date Leydi Aceves MD PCP - GeneralFamily Bbnqiuie90/9/15Team MemberRelationshipSpecialtyStart DateEnd Date Leydi Aceves MD PCP - GeneralFami Sgxxyqil64/9/15Team MemberRelationshipSpecialtyStart DateEnd Date Leydi Aceves MD [address] [place] [address] [facility] - [facility]07/29/22 Leydi Aceves MD [address] [facility] [address] [place] [address] PCP [facility]05/30/22 Merry Paz LPN [address] [facility] [address] [place] [address] 05/19/24Team MemberRelationshipSpecialtyStart DateEnd Date Leydi Aceves MD [address] [facility] [address] [place] [address] PCP - [facility]07/29/22 Leydi Aceves MD [address] [facility] [address] [place] [address] [facility]05/30/22 Merry Paz LPN [address] [facility] [address] [place] [address] 05/19/24Team MemberRelationshipSpecialtyStart DateEnd Date Leydi Aceves MD PCP - GeneralFami Oiszbhgi78/9/15Team MemberRelationshipSpecialtyStart DateEnd Date Leydi Aceves MD PCP - GeneralFamily Fbetiiag67/9/15Team MemberRelationshipSpecialtyStart DateEnd Date Leydi Aceves MD PCP - GeneralFamily Fwogtxto10/9/15Team MemberRelationshipSpecialtyStart DateEnd Date Leydi Aceves MD [address] [facility] [address] [place] [address] PCP - [facility]07/29/22 Leydi Aceves MD [address] [facility] [address] [place] [address] PCP - [facility]05/30/22 Merry Paz LPN [address] [facility] [address] [place] [address] 05/19/24 Goals (unrecognized section and content) Goals may be documented in a n alternate sectionGoals may be documented in an alternate section Reason for Visit (unrecogniz ed section and content) ReasonCommentsRefill RequestReasonCommentsFollow UpReasonCommentsPatient Request ReasonOnset DateCommentsMed Abruug374ReasonCommentsPolyarthritisReason Onset DateCommentsRefill Kdnyfkk19/06/2024ReasonOnset DateCommentsRefill Request 4ReasonOnset DateCommentsMed Bazjsu284ReasonOnset DateComments Med Owiyge024ReasonCommentsGoutFollow upReasonCommentsRadio Gen RMP SpecialtyDiagnoses / ProceduresReferred By ContactReferred To ContactXR IMAGING Diagnoses 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 Procedures XR KNEE GENERAL 4V AP BOTH/PA BOTH/LAT/MERC BILATERAL RADIOLOGIC EXAM KNEE COMPLETE 4/[place] [address] [place] [address] [place] [address] Referral IDStatusReasonStart DateExpiration DateVisits RequestedVisits [id number] Auto-Generated Referral 1ReasonOnset DateCommentsMed Tdyzgp244ReasonCommentsER Follow-upRA flare upMed RefillWould like a refill of Gabapentin and Tramadol ReasonOnset DateCommentsMed Wbwhhz344ReasonOnset DateCommentsMed Refill 4ReasonOnset DateCommentsMed Iupjso004ReasonOnset DateComments Med Msbhku134ReasonCommentsMed RefillOxycodone for a few daysReasonOnset DateCommentsMed Xudmmo9804/25/2024ReasonOnset DateCommentsMed Huxxvw5705/02/2024 ReasonOnset DateCommentsMed Ffemct5405/10/2024ReasonOnset DateCommentsMed Refill 05/29/2024ReasonOnset DateCommentsMed Usqfbt9105/30/2024ReasonOnset DateComments Med Kpqffs2306/05/2024ReasonOnset DateCommentsMed Stoers5706/12/2024ReasonOnset Date CommentsMed Whzuux5406/19/2024ReasonCommentsMed RefillReasonOnset DateCommentsMed Qtsnhx9406/26/2024ReasonOnset DateCommentsMed Tltzho0506/28/2024ReasonOnset Date CommentsMed Tlpjzi6507/03/2024ReasonOnset DateCommentsMed Gwbngs4607/07/2024Reason Onset DateCommentsMed Wqplyx2807/11/2024ReasonOnset DateCommentsMed Refill 07/26/2024ReasonOnset DateCommentsMed Pliaow1309/04/2024ReasonCommentsSuture / Staple RemovalReasonOnset DateCommentsMed Tsqutf9510/02/2024ReasonComments Insurance AuthorizationFebuxostatReasonCommentsMed RefillHydrocodoneReason CommentsOrdersKrystexxa OrdersReasonCommentsPatient UpdateResultsUric AcidReason Onset DateCommentsMed Ljkrsn5212/05/2024 FOR RECORDS PERTAINING TO PATIENTS WHO ARE [...] BE BASED ON THE PRIMARY CLINICAL RECORDS. [facility] [employer] [facility]. provides no warranty or guarantee of the accuracy or completeness of information in this document.
== END 2024-12-19 13:21 | disposition home or self-care (01) ==
LOC: ER 13:24
PROVIDERS: Emergency Provider Emergency Medicine; PCP Family Medicine
DX: M06.9 Rheumatoid arthritis, unspecified (principal); F17.220 Nicotine dependence, chewing tobacco, uncomplicated
CPT/HCPCS: 96372; 99284; J1171; J2919

== ENCOUNTER 2024-12-31 20:37 | Emergency (ER) | payer OTHER, SELFPAY ==
--- OUTSIDE RECORDS SUMMARY | 2024-12-26 10:00 | XMS_ITS | Encounter Summary ---
Author Organization [facility] Address [address] [place] [address] Care Team Providers Care Tutoring Assistant Name Role Phone Malcolm Cid MD Primary Care Provider +- [phone] Source Comments In the event this information is protected by the Federal Confidentiality of Alcohol and Drug AbusePatient Records regulations: The Federal rules restrict any use of the information to criminally investigate or prosecute any alcohol or drug abuse patient.[facility] Reason for Visit * [place] Prior Authorization (Routine) - AuthorizedSpecialtyDiagnoses / ProceduresReferred By ContactReferred To Contact Diagnoses Idiopathic chronic gout of multiple sites with tophus Procedures [place] [address] [place] [address] Phone: tel: fax: Hematology [address] [place] [address] Phone: tel: Referral IDStatusReasonStart DateExpiration DateVisits RequestedVisits [id number] Encounter Details DateTypeDepartmentCare Team (Latest Contact Info)Svfiptpawto65/28/2025 11:00 AM [facility] Hematology/Oncology [address] [place] [address] [place] [address] 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 Last address used for rvtitwabjqh[address] APRIL CAMPBELLE08/14/2022Sex and Gender InformationValueDate Recorded Sex Assigned at SxvemArqi55/10/2020 12:50 PM EDTLegal YwzYuua81/09/2015 3:20 PM ESTGender YfhmbgopZgdl88/10/2020 12:50 PM EDTSexual OrientationStraight 11/09/2019 12:50 PM EDTdocumented as of this encounter Last Filed Vital Signs Vital SignReadingTime TakenCommentsBlood Qdauifcc878/7112/26/2024 2:51 PM EDT Jybzp70076/28/2025 2:51 PM JQHSjwyeuztwkn87.8 ??C (98.3 ??F)12/26/2024 2:51 PM EDTRespiratory Xwpd9295 2:51 PM EDTOxygen Mnunwyqsea01%12/26/2024 2:51 PM EDTInhaled Oxygen Concentration--Weight--Height--Body Mass Index--documented in this encounter Functional Status * Are you deaf or do you have serious difficulty hearing?AnswerDate of EgbjcgmewySjtiixOk51/26/2018 6:15 PM Domi De León RN * Are you blind or do you have serious difficulty seeing, even when wearing glasses?AnswerDate of LklaghxsyrYtlnfpOe62/26/2018 6:15 PM Domi De León RN * Do you have serious difficulty walking or climbing stairs?AnswerDate of IywdhofffvWhqwbmAn99/26/2018 6:15 PM Domi De León RN * Do you have difficulty dressing or bathing?AnswerDate of AssessmentAuthorNo 04/26/2017 6:15 PM Domi De León RN * Because of a physical, mental, or emotional condition, do you have difficulty doing errands alone such as visiting a doctor's office or shopping?AnswerDate of TeehowiwkyNtbmkwHl36/26/2018 6:15 PM Domi De León RN documented as of this encounter Mental Status * Because of a physical, mental, or emotional condition, do you have serious difficulty concentrating, remembering, or making decisions?AnswerEntry Date AkvewxCa32/26/2018 6:15 PM Domi De León RN documented in this encounter Plan of Treatment DateTypeDepartmentCare Team (Latest Contact Info)Airddsewjal87/11/2025 4:00 PM ESTOffice Visit Rheumatology [address] [place], [place] [id number] [place] [address] [place] [address] FU 3 MON?AT 11:40 , 4 OR 4:30 slots . ThxNameTypePriorityAssociated Diagnoses Order ScheduleURIC ACIDLabSTAT Idiopathic chronic gout of multiple sites with tophus Expected: 12/26/2024, Expires: 12/26/2025documented as of this encounter Visit Diagnoses Diagnosis Idiopathic chronic gout of multiple sites with tophus- Primary Chronic gouty arthropathy with tophus (tophi) documented in this encounter Administered Medications Medication OrderMAR ActionAction DateDoseRateSite diphenhydrAMINE 50 mg injection (BENADRYL) 50 mg, INTRAVENOUS, ONCE, 1 dose, On Wed12/26/24 at 1130 Indications:Idiopathic chronic gout of multiple sites with joksojZkemw20/28/2025 11:28 AM EDT50 mg methylPREDNISolone sod succinate(PF) 125 mg injection (SOLU-Medrol) 125 mg, INTRAVENOUS, ONCE, 1 dose, On Wed12/26/24 at 1130 Indications:Idiopathic chronic gout of multiple sites with nbbhriJvxmo93/28/2025 11:27 AM QSD077 mg pegloticase 8 mg in NaCl 0.9% 250 mL (KRYSTEXXA) 8 mg, INTRAVENOUS, at 125 mL/hr, Administer over 2 Hours, ONCE, 1 dose, On Wed12/26/24 at 1130, Administer in a healthcare setting by healthcare providers prepared to manage anaphylaxis. Protect From Light. 4 hour Expiration: 1519 12/26/24 Indications:Idiopathic chronic gout of multiple sites with tophusNew Bag/Syringe/Tkrrqc0312/26/2024 11:51 AM EDT8 mg125 mL/hrdocumented in this encounter Care Teams Team MemberRelationshipSpecialtyStart DateEnd Date Malcolm Cid MD PCP - GeneralFamily Vtktikoc81/9/15documented as of this encounter
[2024-12-31 20:44] VITALS: BP 115/82; PULSE 111; TEMP 37.1; O2SAT 98; BMI 27.5
--- OUTSIDE RECORDS SUMMARY | 2024-12-31 20:44 | XMS_ITS | Patient Health Record ---
Author Organization [facility] Address [address] [place] [address] Care Team Providers Care Business Process Modeler Name Role Phone Malcolm Cid MD Primary Care Provider Juan José Casey Unavailable [phone] Reason For Referral No Information Medications Medication [...] Notes Problem Contusion of right k nee ([id number]) Contusion of right knee, subsequent encounter (S80.01XD) ActiveconfirmedProblemEnthesopathy of knee (79038060)Knee bursitis, right (M70.51)[id number] gout of right knee, 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)ActiveconfirmedProblemContusion of knee (17043858) Contusion of knee, right (S80.01XA)InactiveconfirmedProblemInfected prepatellar bursa, [...] Date Medicaid [employer] [place] [address] [place] [phone] [id number] TRU DORADO Self - patient is the insured Medical (General) History Medical History History ICD Code Depression High Blood PressureAnxietySurgical History Surgery Date(Month/Year) Knee arthroscopy 01/2023 Shoulder surgery, left 03/2021
--- OUTSIDE RECORDS SUMMARY | 2024-12-31 20:44 | XMS_ITS | Encounter Summary ---
Author Organization [facility] Address [address] [place] [address] Care Team Providers Care Canvas Baster Jumpbasting Name Role Phone Malcolm Cid MD Primary Care Provider [phone] Malcolm Cid MD Unavailable Merry Paz LPN Unavailable Encounter Details DateTypeDepartmentCare Team (Latest Contact Info)Ojxshqkkwpe84/22/2025Patient Outreach [facility] [address] [place] [phone] Merry Paz LPN [address] [place] [address] Social History Tobacco UseTypesPacks/DayYears UsedDateSmoking Tobacco: Every DayCigarettes1.5 16.8Started: 02/26/2008Smokeless Tobacco: CurrentChewAlcohol UseStandard Drinks/WeekCommentsYes6 (1 standard drink = 0.6 oz pure alcohol)2 or 3 drinks in one sitting. Maybe two or three times per [id number] Health LiteracyAnswerDate RecordedHow often do you need [...] times a week10/10/2023How often do you attend islam or mormon services?More than 4 times per year10/10/2023o you belong to any clubs or organizations such as islam groups, unions, fraternal or athletic groups, or school groups?Yes10/10/2023How often do you attend meetings of the clubs or organizations you belong to?More than 4 times per year10/10/2023 Are you , , , , never , or living with a partner?Tbansilyp21/11/2024UDIT-CAnswerDate RecordedQ1: How often do you have a [...] heating?Not very hard10/10/2023HQ-2AnswerDate RecordedPatient Health Questionnaire-2 Score0 09/13/2024[facility] - Occupational Stress QuestionnaireAnswerDate [...] steady place to sleep or slept in [facility] (including now)?No09/14/2022Housing Stability Vital SignAnswerDate RecordedIn the last 12 months, was there a time when you were not able to pay the mortgage or rent on time?Yes10/10/2023In the past 12 months, how many times have you moved where you were living?t any time in the past 12 months, were you homeless or living in a fdc (including now)?No 10/10/2023Sex and Gender InformationValueDate RecordedSex Assigned at BirthMale 09/08/2022 2:56 PM EDTLegal QgjUqyo2405/13/2022 6:55 PM EDTGender IdentityMale 09/08/2022 2:56 PM EDTSexual OhxgtfrdeccIcggmciq36/11/2023 2:56 PM EDTdocumented as of this encounter Progress Notes * Merry Paz LPN - 12/20/2024 3:23 PM EDT Records in chart. AYSHA complete and medications reconciled with pt. Pt states little improvement with steroid. States has no taken the meloxicam but will if prednisone does not seem to help improve. Denies need for follow up with PCP as he is familiar with flare ups. Flowsheet Row Patient Outreach from 12/20/2024 in [facility] with Merry Paz LPN Hospital Information ED, Hospital or Shelter Facility Discharge? ED Patient has been contacted within 2 days of being seen in the ED Yes Diagnosis Rheumatoid arthritis flare Discharge Date 12/19/24 Discharged To: Home Setting Discharge Hospital [facility] Engagement Call Start Time 1522 Admission Date 12/19/24 Medications Discharge medications reviewed and reconciled from hospital? Yes Is the patient having any side effects they believe may be caused by any medication additions or changes? No Does the patient have all medications ordered at discharge? Yes Medication Comments prednisone 50 mg tablet PO DAILY 5 Days, meloxicam 15 mg tablet PO DAILY PRN Qty: 10 Appointments Does the patient have a primary care provider? Yes Nursing Interventions Patient declined follow up appointment w/ PCP Does the patient have any upcoming specialty appointments? Yes [12/26- Hem Onc, 01/09 Rheumatology] Self Management Does patient have home health? no Patient Teaching Does the patient have access to their discharge instructions? Yes What is the patient's perception of their health status since discharge? Improving Is the patient/caregiver able to teach back the hierarchy of who to call/visit for symptoms/problems? PCP, Specialist, Home Health nurse, Urgent Care, ED, 911 Yes Wrap Up Wrap Up Additional Comments presented to ER for Rheumatoid arthritis flare up. Upper and lower extremity showed that the patient have multiple joint deformities due to rheumatoid arthritis but there is no redness no hotness no signs of infection there is only inflammation mostly in the anterior knee bilaterally as well as multiple tenderness points in his feet and toes Good anterior tibial pulse in both feet and there is no vascular injury detected Call End Time 1529 documented in this encounter Plan of Treatment Not on file documented as of this encounter Visit Diagnoses Diagnosis Rheumatoid arthritis flare (HCC)- Primary Stage 3a chronic kidney disease (CMS-HCC) Other chronic pain documented in this encounter Care Teams Team MemberRelationshipSpecialtyStart DateEnd Date Malcolm Cid MD [address] [facility] [address] [place] [address] PCP - [facility]07/29/22 Malcolm Cid MD [address] [facility] [address] [place] [address] [facility] Merry Paz LPN [address] [facility] [address] [place] [address] 05/19/24documented as of this encounter
--- OUTSIDE RECORDS SUMMARY | 2024-12-31 20:44 | XMS_ITS | Clinical Summary ---
Author Organization [facility] Address [address] [place] [address] Care Team Providers Care Dressmaking Teacher Name Role Phone Malcolm Cid MD Primary Care Provider [phone] Allergies No known active allergies Medications MedicationSigDispense [...] 5Active methotrexate 2.5 mg tablet Indications:Chronic tophaceous goutTAKE 6 TABLETS BY MOUTH ONE TIME A WEEK. HOLD IF YOU HAVE INFECTION OR FEVERS 100.4 F OR HIGHER. MAY RESUME ONCE INFECTION RESOLVED. LABS EVERY 3 MONTHS 72 tablet /ctive methotrexate 2.5 mg tablet Indications:Chronic tophaceous goutTake 6 tablets by mouth one time a week. Hold if you have infection or fevers 100.4 F or higher. May resume once infection resolved. LABS EVERY 3 MONTHS 72 tablet //2025Discontinued Active Problems ProblemNoted DateDiagnosed DateIdiopathic chronic gout of multiple sites with cggwyr5603/20/2017Rheumatoid arthritis of multiple sites with negative rheumatoid sqasys1605/10/2017Nicotine use disorder, F17.Gout04/26/2017Chronic pain 04/26/2017 Resolved Problems ProblemNoted DateDiagnosed DateResolved DateRheumatoid arthritis flare04/25/2017 05/10/2017 Encounters DateTypeDepartmentCare QwmyOsfygxzfnir45/28/2025 11:00 AM [facility] [place] [facility]Oncology [address] [place] [address] [place] [address] 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)12/25/2024 Refill Rheumatology [address] [facility] [place] [address] Delmy Castro MD Refill Fpmloic8712/25/20242804Rhyuze35/14/2025 11:00 AM [facility] Hematology/Oncology [address] [place] [address] [place] [address] 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)11/30/2024MC Get Medical Advice Rheumatology [address] [facility] [place] [address] Delmy Castro MD Uric Acid Level11/28/2024 11:00 AM [facility] [place] Hematology/Oncology [address] [place] [address] [place] [address] 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)11/14/2024 11:00 AM [facility] Hematology/Oncology [address] [place] [address] [place] [address] 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)11/13/2024 Results Follow-Up Rheumatology [address] [facility] [place] [address] Delmy Castro MD 11/13/2024Telephone Hematology/Oncology [address] [place] [address] [place] [address] Kusum Covarrubias, RN Patient Update; Results (Uric Acid )11/13/20243249Pgzhdh03/15/2025Telephone Rheumatology [address] [place] [address] Delmy Castro MD 11/08/2024[facility]ology/Oncology [address] [place] [address] Kusum Covarrubias, RN Orders (Krystexxa Orders)11/03/2024 Get Medical Advice Rheumatology [address] [place] [address] Dlemy Castro MD Reply11/02/2024 Get Medical Advice Rheumatology [address] [place] [address] Delmy Castro MD Bmpiwtclyq53/11/2025 Patient Msg Hematology/Oncology [address] [place] [address] Provider, Ccf Appointment Cancellation Nntdcqn3110/09/2024 Patient Msg Hematology/Oncology [address] [place] [address] Provider, Ccf Appointment Cancellation Zcqlulp2410/09/2024 Patient Msg Hematology/Oncology [address] [place] [address] Provider, Ccf Appointment Cancellation Rvdgarm9010/09/2024 Get Medical Advice Rheumatology [address] [place] [address] Delmy Castro MD Kfneotng80/08/2025[facility] [address] [place] [address] Delmy Castro MD Insurance Authorization (/Preferred Drug wP2P: NICK CARDOZA KRYSTEXXA DELMY [place])10/03/2024 8:00 AM EDTOffice Visit Rheumatology [address] [place] [address] Delmy Castro MD Chronic tophaceous gout (Primary Dx); Other secondary osteoarthritis of multiple sites; Encounter for long-term (current) use of medications; Idiopathic chronic gout of multiple sites with nfmcaa6110/03/2024Telephone Rheumatology [address] [place] [address] Delmy Castro MD Insurance Authorization ([employer])10/02/2024Travelfrom Last 3 Months Family History Medical HistoryRelationCommentsgoutMaternal Uncleseveral uncles with gout rheumatoid arthritisOtherfibromyalgiaSisterlupusSisterRelationStatusComments Maternal UncleOtherSister Social History Tobacco UseTypesPacks/DayYears UsedDateSmoking Tobacco: NeverSmokeless Tobacco: CurrentChew Tobacco Cessation:Ready to Q uit: Not Asked; Counseling Given: Not Answered PHQ-2AnswerDate RecordedPHQ-2 wqevh139rea Deprivation IndexAnswerDate RecordedNational Score (1-100), lower number is lower jnfk889808/14/2022State Score (1-10), lower number is lower ztne88408/14/2022ata from: https://www.neighborhoodatlas.medicine.[facility].edu/. Last address used for ecdoifwfozm[address] [facility]08/14/2022Sex and Gender InformationValueDate Recorded Sex Assigned at YjgbpCqcb02/10/2020 12:50 PM EDTLegal CmhVmfm40/09/2015 3:20 PM ESTGender LvqibeqhJxff10/10/2020 12:50 PM EDTSexual OrientationStraight 11/09/2019 12:50 PM EDT Last Filed Vital Signs Vital SignReadingTime TakenCommentsBlood Qionjugc696/7110 2:51 PM EDT Idlok27689/28/2025 2:51 PM VHEFqeisvzgkbh03.8 ??C (98.3 ??F)12/26/2024 2:51 PM EDTRespiratory Wssz7622 2:51 PM EDTOxygen Uosqhecznq17%12/26/2024 2:51 PM EDTInhaled Oxygen Concentration--Gdwfyi973.3 kg (221 lb 1.9 oz)10/03/2024 7:57 AM VBDYsoznx310 cm (6' 2.02 )10/03/2024 7:57 AM EDTBody Mass Index28.38 10/03/2024 7:57 AM EDT Plan of Treatment DateTypeDepartmentCare Team (Latest Contact Info)Gcjihjszrjf65/11/2025 4:00 PM ESTOffice Visit Rheumatology [address] [place], [place] [id number] [place] [address] [place], [place] [id number] FU 3 MON?AT 11:40 , 4 OR 4:30 slots . ThxHealth MaintenanceDue DateLast Done CommentsCovid-19 Vaccine (#1)1995Annual PCP Team Chronic Disease Visit 02/26/2008nxiety Ixnwwgmzx53/28/2008Depression Fqkhgndxb94/28/2008HIV Screening 02/26/2008Hepatitis B Vaccine (1 of 3 - 19+ 3-dose series)2009Pneumococcal Vaccine (1 of 2 - PCV)2009Shingrix Vaccine (1 of 2)2009HPV Vaccine (1 - Risk 3-dose SCDM series)2017Influenza Vaccine (#1)2024 10/13/2018, 12/23/2017Serum Kaahtfsyfe63, 11/13/2024, 10/02/2024, Additional history existsDTaP,Tdap,Td Vaccine (6 - Td or Tdap) /04/2016, 10/20/1993, 07/26/1991, Additional history existsHepatitis C ItfcgykiqJgcpyzmdk92/02/2021 Procedures Procedure NamePriorityDate/TimeAssociated DiagnosisCommentsURIC ACID BLOOD Wyvdegw5212/25/2024 2:39 PM EDT Chronic tophaceous gout URIC ACID ZJXNPUfgrhww35/13/2025 3:01 PM EDT Chronic tophaceous gout URIC ACID EPRUKTdkxlmb72/30/2025 11:59 AM EDT Idiopathic chronic gout of multiple sites with tophus URIC ACID BCLXXDycinvn11/29/2025 2:33 PM EDT Chronic tophaceous gout SEDIMENTATION UFOZPxnueop71/15/2025 3:03 PM EDT Chronic tophaceous gout CREATININE UNUPmiuegx76/15/2025 3:03 PM EDT Chronic tophaceous gout C-REACTIVE PROTEIN (CRP)Pvykvnu1411/13/2024 3:03 PM EDT Chronic tophaceous gout CBC + RBPVKpnwloz04/15/2025 3:03 PM EDT Chronic tophaceous gout ALBUMIN HHOQoghjdb86/15/2025 3:03 PM EDT Chronic tophaceous gout ALT/RMLVStrzwto21/15/2025 3:03 PM EDT Chronic tophaceous gout AST/SGOT AAKBcfoljk65/15/2025 3:03 PM EDT Chronic tophaceous gout URIC ACID DZAGVLiuuihe23/15/2025 3:03 PM EDT Chronic tophaceous gout OKGXEJRYTULvdesde72/12/2025 2:16 PM EDT Chronic tophaceous gout YMWCXUAUAEDwmohfo07/12/2025 2:16 PM EDT Chronic tophaceous gout G-6-PD UXRBCGBPHAKBNihdknr17/12/2025 2:16 PM EDT Chronic tophaceous gout G6PD KHNKSKELDSWMTvyyedp47/12/2025 2:16 PM EDT Chronic tophaceous gout URIC ACID DCLUYVuxdpet60/04/2025 1:44 PM EDT Chronic tophaceous gout Encounter for long-term (current) use of medications SEDIMENTATION QTHPImfpfie55/04/2025 1:44 PM EDT Chronic tophaceous gout Encounter for long-term (current) use of medications CREATININE CSVDhljajl75/04/2025 1:44 PM EDT Chronic tophaceous gout Encounter for long-term (current) use of medications C-REACTIVE PROTEIN (CRP)Zglblkr0710/02/2024 1:44 PM EDT Chronic tophaceous gout Encounter for long-term (current) use of medications CBC + LXZLSwgkayj96/04/2025 1:44 PM EDT Chronic tophaceous gout Encounter for long-term (current) use of medications ALBUMIN GVYWozavvq68/04/2025 1:44 PM EDT Chronic tophaceous gout Encounter for long-term (current) use of medications ALT/UWRXLrtwewh86/04/2025 1:44 PM EDT Chronic tophaceous gout Encounter for long-term (current) use of medications AST/SGOT YEBPjpnhty33/04/2025 1:44 PM EDT Chronic tophaceous gout Encounter for long-term (current) use of medications *HEP C XTRjsmpwj33/02/2021 10:12 AM EST Encounter for long-term (current) use of medications from Last 3 Months or Most Recently Relevant to Health Maintenance Results * (ABNORMAL) URIC ACID (12/25/2024 2:39 PM EDT) Only the most recent of6 resultswithin the time period is included. ComponentValueRef RangeTest MethodAnalysis TimePerformed AtPathologist Signature Uric Acid<0.2(L)4.0 - 8.1 mg/dL12/25/2024 3:39 PM EDTNORTHCOAST UN[facility] LABSpecimen (Source)Anatomical Location / LateralityCollection Method / VolumeCollection TimeReceived TimeBloodBLOOD SPECIMEN / UnknownVenipuncture / Ggqvakt7412/25/2024 2:39 PM EDT1 2:39 PM EDT Narrative Authorizing ProviderResult TypeResult StatusDelmy Castro MDLABORATORYFinal ResultPerforming OrganizationAddressCity/State/ZIP CodePhone Number [facility] [address] [place] [address] * SEDIMENTATION RATE, WESTERGREN (11/13/2024 3:03 PM EDT) Only the most recent of2 resultswithin the time period is included. ComponentValueRef RangeTest MethodAnalysis TimePerformed AtPathologist Signature Sed Rate, Dxabtekkgz33 - 15 mm/hr11/14/2024 12:57 AM EDTCFISHER-[facility] LABSpecimen (Source)Anatomical Location / LateralityCollection Method / VolumeCollection TimeReceived TimeBloodBLOOD SPECIMEN / UnknownVenipuncture / Owwabct3011/13/2024 3:03 PM EDT11/13/2024 3:03 PM EDT Narrative Authorizing ProviderResult TypeResult StatusDelmy Castro MDLABORATORYFinal ResultPerforming OrganizationAddressCity/State/ZIP CodePhone Number [facility] [address] [address], * (ABNORMAL) CREATININE BLD (11/13/2024 3:03 PM EDT) Only the most recent of2 resultswithin the time period is included. ComponentValueRef RangeTest MethodAnalysis TimePerformed AtPathologist Signature Creatinine1.29(H)0.73 - 1.22 mg/dL11/13/2024 3:31 PM EDTNORTMCLAREN OAKLAND LABEstimated Glomerular Filtration Rate75>=60 mL/min/1.73m 11/13/2024 3:31 PM EDTPRESTON [facility]ORIAL [facility] LABComment:Estimated Glomerular Filtration Rate (eGFR) is calculated [...] VolumeCollection TimeReceived TimeBloodBLOOD SPECIMEN / UnknownVenipuncture / Homtxfp3411/13/2024 3:03 PM EDT11/13/2024 3:03 PM EDT Narrative Authorizing ProviderResult TypeResult StatusDelmy Castro MDLABORATORYFinal ResultPerforming OrganizationAddressCity/State/ZIP CodePhone Number [facility] [address] [place] [address] * COMPLETE BLOOD COUNT AND DIFFERENTIAL (11/13/2024 3:03 PM EDT) Only the most recent of2 resultswithin the time period is included. ComponentValueRef RangeTest MethodAnalysis TimePerformed AtPathologist Signature WBC6.643.70 - 11.00 k/uL11/13/2024 3:08 PM EDTNORTMCLAREN OAKLAND LABRBC4.704.20 - 6.00 m/uL11/13/2024 3:08 PM EDTNORTMCLAREN OAKLAND LEQPurrdlrrys60.213.0 - 17.0 g/dL11/13/2024 3:08 PM [facility] EDFKqjvssejub51.839.0 - 51.0 %11/13/2024 3:08 PM EDT [facility] KRGLPJ44.880.0 - 100.0 fL11/13/2024 3:08 PM EDTNORTMCLAREN OAKLAND LPNYJW44.226.0 - 34.0 pg11/13/2024 3:08 PM EDTNORTMCLAREN [place] IWCDWQF12.830.5 - 36.0 g/dL11/13/2024 3:08 PM EDTNOWYOMING [facility] LABRDW-CV13.211.5 - 15.0 %11/13/2024 3:08 PM EDTNORTMCLAREN OAKLAND LABPlatelet Hkwuq705293 - 400 k/uL 11/13/2024 3:08 PM EDTNORTMCLAREN [facility]AK[facility] HETDGI11.59.0 - 12.7 fL 11/13/2024 3:08 PM [facility] LABNeutrophils %55.9% 11/13/2024 3:08 PM [facility] LABAbs Neut3.711.45 - 7.50 k/uL11/13/2024 3:08 PM [facility] LABLymphocytes %36.7%11/13/2024 3:08 PM [facility] LABAbs Lymph2.44 1.00 - 4.00 k/uL11/13/2024 3:08 PM [facility] Monocytes %6.3%11/13/2024 3:08 PM [facility] LABAbs Mono0.42<0.87 k/11/13/2024 3:08 PM [facility] Eosinophils %0.5%11/13/2024 3:08 PM [facility] LABAbs Eosin0.03<0.46 k/uL11/13/2024 3:08 PM [facility] Basophils %0.3%11/13/2024 3:08 PM [facility] LABAbs Baso<0.03<0.11 /11/13/2024 3:08 PM [facility] Immature Granulocytes %0.3%11/13/2024 3:08 PM [facility] LABAbs Immature Gran<0.03<0.10 /uL11/13/2024 3:08 PM [facility] LABNRBC0.0/100 WBC11/13/2024 3:08 PM [facility] LABAbsolute nRBC<0.01<0.01 /11/13/2024 3:08 PM EDT [facility] LABDiff ByzjMoew53/15/2025 3:08 PM EDT [facility] LABSpecimen (Source)Anatomical Location / LateralityCollection Method / VolumeCollection TimeReceived TimeBloodBLOOD SPECIMEN / UnknownVenipuncture / Lnvkpvz2611/13/2024 3:03 PM EDT11/13/2024 3:03 PM EDT Narrative Authorizing ProviderResult TypeResult StatusDelmy Castro MDLABORATORYFinal ResultPerforming OrganizationAddressCity/State/ZIP CodePhone Number [facility] [address] [place] [address] * C-REACTIVE PROTEIN (11/13/2024 3:03 PM EDT) Only the most recent of2 resultswithin the time period is included. ComponentValueRef RangeTest MethodAnalysis TimePerformed AtPathologist Signature CRP<0.3<0.9 mg/dL11/14/2024 2:00 PM EDTCFISHER-TITUS [facility] LABSpecimen (Source)Anatomical Location / LateralityCollection Method / VolumeCollection TimeReceived TimeBloodBLOOD SPECIMEN / UnknownVenipuncture / Ndcmtrh0011/13/2024 3:03 PM EDT11/13/2024 3:03 PM EDT Narrative Authorizing ProviderResult TypeResult StatusDelmy Castro MDLABORATORYFinal ResultPerforming OrganizationAddressCity/State/ZIP CodePhone Number [facility] [address] [address], * ALBUMIN (11/13/2024 3:03 PM EDT) Only the most recent of2 resultswithin the time period is included. ComponentValueRef RangeTest MethodAnalysis TimePerformed AtPathologist Signature Albumin4.53.9 - 4.9 g/dL11/13/2024 3:31 PM EDTNORTHCMCLAREN LAPEER [facility] LABSpecimen (Source)Anatomical Location / LateralityCollection Method / Volume Collection TimeReceived TimeBloodBLOOD SPECIMEN / UnknownVenipuncture / Unknown 11/13/2024 3:03 PM EDT11/13/2024 3:03 PM EDT Narrative Authorizing ProviderResult TypeResult StatusDelmy Castro MDLABORATORYFinal ResultPerforming OrganizationAddressCity/State/ZIP CodePhone Number [facility] [address] [place] [address] * ASPARTATE AMINOTRANSFERASE/SGOT (11/13/2024 3:03 PM EDT) Only the most recent of2 resultswithin the time period is included. ComponentValueRef RangeTest MethodAnalysis TimePerformed AtPathologist Signature NEW8218 - 40 U/L11/13/2024 3:31 PM [facility]TPRESTON [facility] Specimen (Source)Anatomical Location / LateralityCollection Method / Volume Collection TimeReceived TimeBloodBLOOD SPECIMEN / UnknownVenipuncture / Unknown 11/13/2024 3:03 PM EDT11/13/2024 3:03 PM EDT Narrative Authorizing ProviderResult TypeResult StatusDelmy Castro MDLABORATORYFinal ResultPerforming OrganizationAddressCity/State/ZIP CodePhone Number [facility] [address] [place] [address] * (ABNORMAL) ALANINE AMINOTRANSFERASE / SGPT (11/13/2024 3:03 PM EDT) Only the most recent of2 resultswithin the time period is included. ComponentValueRef RangeTest MethodAnalysis TimePerformed AtPathologist Signature ALT55(H)10 - 54 U/L11/13/2024 3:31 PM EDTPRESTON [facility] Specimen (Source)Anatomical Location / LateralityCollection Method / Volume Collection TimeReceived TimeBloodBLOOD SPECIMEN / UnknownVenipuncture / Unknown 11/13/2024 3:03 PM EDT11/13/2024 3:03 PM EDT Narrative Authorizing ProviderResult TypeResult StatusDelmy APARICIOORATORYFinal ResultPerforming OrganizationAddressCity/State/ZIP CodePhone Number [facility] [address] [place] [address] * G-6-PD QUANTITATIVE (10/10/2024 2:16 PM EDT)ComponentValueRef RangeTest Method Analysis TimePerformed AtPathologist JlilyqqmuKimdwdh-3-Qgdsgkbur Dehydrogenase (G-6-PD)13.09.8 - 15.5 U/g Hb08/ 3:49 PM [facility] LABComment:This test was developed, and its performance characteristics determined by the [facility] Department of Pathology and Laboratory Medicine. It has not been cleared or approved by the FDA. The [facility] Department of Pathology and Laboratory Medicine is regulated under CLIA as qualified to perform high-complexity testing. This test is used for clinical purposes. It should not be regarded as investigational or for research.Specimen (Source)Anatomical Location / LateralityCollection Method / VolumeCollection TimeReceived TimeBloodBLOOD SPECIMEN / UnknownVenipuncture / Vquwkdr5510/10/2024 2:16 PM EDT10/10/2024 2:16 PM EDT Narrative Authorizing ProviderResult TypeResult StatusDelmy Castro MDLABORATORYFinal ResultPerforming OrganizationAddressCity/State/ZIP CodePhone Number [facility] [address] [place] [id number], [place] * HEMOGLOBIN (10/10/2024 2:16 PM EDT) Only the most recent of2 resultswithin the time period is included. ComponentValueRef RangeTest MethodAnalysis TimePerformed AtPathologist Signature Djirkwqwua43.113.0 - 17.0 g/dL10/11/2024 12:19 PM [facility] LABSpecimen (Source)Anatomical Location / LateralityCollection Method / VolumeCollection TimeReceived TimeBloodBLOOD SPECIMEN / UnknownVenipuncture / Cdeqeup6610/10/2024 2:16 PM EDT10/10/2024 2:16 PM EDT Narrative Authorizing ProviderResult TypeResult StatusDelmy Castro MDLABORATORYFinal ResultPerforming OrganizationAddressCity/State/ZIP CodePhone Number [facility] [address] [place] [id number], [place] * HEP REMOTE PANEL BL (04/02/2020 10:12 AM EST)ComponentValueRef RangeTest MethodAnalysis TimePerformed AtPathologist SignatureHep B Core Ab, Total TtlqhkdaJaaxzaab53/02/2021 7:30 PM ESTSt. [facility] LaboratoriesHep C Antibody WMHchwmrkbAcxtpkzu50/02/2021 7:31 PM [facility] YFkRoIanevlzyIqzybooz36/02/2021 7:31 PM [facility] LaboratoriesHep B Surface Ab, BglcOkalxpzdSkelfehd49/02/2021 7:31 PM [facility] LaboratoriesComment:NEGATIVESpecimen (Source)Anatomical Location / Laterality Collection Method / VolumeCollection TimeReceived TimeBloodBLOOD SPECIMEN / Knzhzpc7704/02/2020 10:12 AM EST04/02/2020 10:14 AM EST Narrative Authorizing ProviderResult TypeResult StatusDesenoch Olea DISPATCHER SHIP PILOT.CNPLABORATORY Final ResultPerforming OrganizationAddressCity/State/ZIP CodePhone Number [facility] [address] [place] [address] [facility] [address] [place] [address] from Last 3 Months or Most Recently Relevant to Health Maintenance Insurance Care Teams Team MemberRelationshipSpecialtyStart DateEnd Date Malcolm Cid MD PCP - GeneralFamily Yropkvfw41/9/15
--- OUTSIDE RECORDS SUMMARY | 2024-12-31 20:44 | XMS_ITS | Encounter Summary ---
Author Organization [facility] Address [address] [place] [address] Care Team Providers Care Science Tutor Name Role Phone Malcolm Cid MD Primary Care Provider [phone] Malcolm Cid MD Unavailable Merry Paz LPN Unavailable Encounter Details DateTypeDepartmentCare Team (Latest Contact Info)Tncwxtuuste77/22/2025Abstract [facility] [address] [place] [phone] Merry Paz LPN [address] [place] [address] Social History Tobacco UseTypesPacks/DayYears UsedDateSmoking Tobacco: Every DayCigarettes1.5 16.8Started: 02/26/2008Smokeless Tobacco: CurrentChewAlcohol UseStandard Drinks/WeekCommentsYes6 (1 standard drink = 0.6 oz pure alcohol)2 or 3 drinks in one sitting. Maybe two or three times per aO4998 Health LiteracyAnswerDate RecordedHow often do you need [...] times a week10/10/2023How often do you attend religious or hindu services?More than 4 times per year10/10/2023o you belong to any clubs or organizations such as religious groups, unions, fraternal or athletic groups, or school groups?Yes10/10/2023How often do you attend meetings of the clubs or organizations you belong to?More than 4 times per year10/10/2023 Are you , , , , never , or living with a partner?Wzaujakqc57/11/2024UDIT-CAnswerDate RecordedQ1: How often do you have a [...] heating?Not very hard10/10/2023HQ-2AnswerDate RecordedPatient Health Questionnaire-2 Score0 09/13/2024[facility] [place] of Occupational Health - Occupational Stress QuestionnaireAnswerDate [...] steady place to sleep or slept in [facility] (including now)?No09/14/2022Housing Stability Vital SignAnswerDate RecordedIn the last 12 months, was there a time when you were not able to pay the mortgage or rent on time?Yes10/10/2023In the past 12 months, how many times have you moved where you were living?t any time in the past 12 months, were you homeless or living in a long-term (including now)?No 10/10/2023Sex and Gender InformationValueDate RecordedSex Assigned at BirthMale 09/08/2022 2:56 PM EDTLegal JijKsiz7305/13/2022 6:55 PM EDTGender IdentityMale 09/08/2022 2:56 PM EDTSexual SzwbnexiocmLdwcdedd64/11/2023 2:56 PM EDTdocumented as of this encounter Plan of Treatment Not on file documented as of this encounter Visit Diagnoses Not on filedocumented in this encounter Care Teams Team MemberRelationshipSpecialtyStart DateEnd Date Malcolm Cid MD [address] [facility] [address] [place] [address] PCP - [facility]07/29/22 Malcolm Cid MD [address] [facility] [address] [place] [address] PCP - [facility]05/30/22 Merry Paz LPN [address] [facility] [address] [place] [address] 05/19/24documented as of this encounter
--- OUTSIDE RECORDS SUMMARY | 2024-12-31 20:44 | XMS_ITS | Clinical Summary ---
Author Organization [facility] Address [address] [place] [address], [address] [place] [address] Care Team Providers Care Button Breaker Operator Name Role Phone Malcolm Cid MD Primary Care Provider [phone] Allergies No known active allergies Medications MedicationSigDispense [...] by mouth dailyActive Active Problems ProblemNoted DateDiagnosed QjrdZnifvnzlnhnmr99/28/7651Ulqbyo12/28/2015 Zpakcnagkdoh73/28/2015GoutDDD (degenerative disc disease), cervicalVasovagal syncope Resolved Problems ProblemNoted DateDiagnosed DateResolved IfheUqohcjr08 Family History Medical HistoryRelationNameCommentsCOPDFatherCOPDMotherRelationNameStatus CommentsFatherAliveMotherAlive Social History Tobacco UseTypesPacks/DayYears UsedDateSmoking Tobacco: NeverSmokeless Tobacco: CurrentChewAlcohol UseStandard Drinks/WeekCommentsYes0 (1 standard drink = 0.6 oz pure alcohol)rarely; last drink was 2 glassses of wine Cas DaySex and Gender InformationValueDate RecordedSex Assigned at BirthNot on fileLegal Sex Male02/24/2015 6:11 PM ESTGender IdentityNot on fileSexual OrientationNot on file Last Filed Vital Signs Vital SignReadingTime TakenCommentsBlood Gtvgctqq909/85007/12/2018 8:22 PM EDT Gkfmz82358/14/2019 8:22 PM MVJTteqqgvslfr94.5 ??C (97.7 ??F)07/12/2018 8:22 PM EDTRespiratory Mmak131907/12/2018 8:22 PM EDTOxygen Nquvfitilu64%07/12/2018 8:22 PM EDTInhaled Oxygen Concentration--Gfueoo22.7 kg (200 lb)07/12/2018 8:22 PM EDT Dfblfd612.5 cm (6' 3 )07/12/2018 8:22 PM EDTBody Mass Wxtqo9288/14/2019 8:22 PM EDT Plan of Treatment Health MaintenanceDue DateLast DoneCommentsCOVID-19 Vaccine (#1)1995 Depression Bcjqhe3102/25/2002Varicella vaccine (1 of 2 - 13+ 2-dose series) 2003HIV svrray6802/25/2005Hepatitis C ulfqma8902/26/2008DTaP/Tdap/Td vaccine (1 - Tdap)2009Hepatitis B vaccine (1 [...] TypeRelation to PatientDate of BirthPhone Billing AddressWorkers YnhtCfua1990 (Home) [address] [phone] Advance Directives * Full Code (Latest Code Status on File) Date ActivatedDate InactivatedComments04/26/2015 11:58 PM2 7:53 PM * Full Code Date ActivatedDate CzqnonnenusSbyfohlf26/27/2015 8:57 PM02/28/2015 4:48 PM Care Teams Team MemberRelationshipSpecialtyStart DateEnd Date Malcolm Cid MD PCP - Qonidsy10/27/15
--- OUTSIDE RECORDS SUMMARY | 2024-12-31 20:44 | XMS_ITS ---
Author Organization [facility] Address [address] [place] [address] Care Team Providers Care Sizing Machine Operator Name Role Phone Malcolm Cid MD Primary Care Provider [phone] Malcolm Cid MD Unavailable Merry Paz LPN Unavailable Emergency Department Transitional Care Management (TCM) Status:Closed (Closed) Start date:12/19/2024 Enrollment date:12/20/2024 Enrollment reason:Identified using hospital discharge data End date:12/20/2024 Close reason:Actively enrolled in CCM Overview Discharged from [facility] ER on 12/19. Please contact within 2 days of discharge for ERTOC and schedule a follow-up appointment if needed. Continued Care and Services Coordination
--- OUTSIDE RECORDS SUMMARY | 2024-12-31 20:45 | XMS_ITS | Encounter Summary ---
Author Organization [facility] Address [address] [place] [address] Care Team Providers Care Sewer Pipe Press Operator Name Role Phone Malcolm Cid MD Primary Care Provider [phone] Malcolm Cid MD Unavailable Wednesday, Alma AQUINON Unavailable [phone] Jayne Del Valle RN Unavailable [phone] Merry Paz CONVEYOR ATTENDANT Unavailable Encounter Details DateTypeDepartmentCare Team (Latest Contact Info)Qhoajcwmcjs76/05/2024Clinisync Result Encounter [facility] External Department Unsolicited Provider, Generic External Data Social History Tobacco UseTypesPacks/DayYears UsedDateSmoking Tobacco: Every DaySmokeless Tobacco: CurrentChewAlcohol UseStandard Drinks/WeekCommentsYes6 (1 standard drink = 0.6 oz pure alcohol)2 or 3 drinks in one sitting. Maybe two or three times per [id number] Health LiteracyAnswerDate RecordedHow often do you need to have someone help you when you read instructions, pamphlets, or other written material from your doctor or pharmacy?Never10/10/2023Humiliation, Afraid, Rape, and Kick questionnaireAnswerDate RecordedWithin the last year, have you been afraid of your partner or ex-partner?No09/14/2022Within the last year, have you been humiliated or emotionally abused in other ways by your partner or ex-partner?No09/14/2022Within the last year, have you been kicked, hit, slapped, or otherwise physically hurt by your partner or ex-partner?No09/14/2022Within the last year, have you been raped or forced to have any kind of sexual activity by your partner or ex-partner?No09/14/2022Social Connection and Isolation Panel AnswerDate RecordedIn a typical week, how many times do you talk on the phone with family, friends, or neighbors?Three times a week10/10/2023How often do you get together with friends or relatives?More than three times a week10/10/2023How often do you attend sabianist or buddhist services?More than 4 times per year 10/10/2023o you belong to any clubs or organizations such as sabianist groups, unions, [employer]Wuhan [employer] or athletic groups, or school groups?Yes10/10/2023How often do you attend meetings of the clubs or organizations you belong to?More than 4 times per year10/10/2023re you , , , , never , or living with a partner?Mxwlzohom90/11/2024UDIT-CAnswerDate Recorded Q1: How often do you have a drink containing alcohol?Monthly or less10/10/2023 Q2: How many drinks containing alcohol do you have on a typical day when you are drinking?3 or Q3: How often do you have six or more drinks on one occasion?Never10/10/2023Overall Financial Resource Strain (CARDIA)AnswerDate RecordedHow hard is it for you to pay for the very basics like food, housing, medical care, and heating?Not very hard10/10/2023HQ-2AnswerDate RecordedPatient Health Questionnaire-2 Sgojt724[facility] [place] [facility] - Occupational Stress QuestionnaireAnswerDate [...] exercise at this level?60 min10/10/2023Hunger Vital SignAnswerDate RecordedWithin the past 12 months, you worried that your food would run out before you got the money to buymore.Sometimes true10/10/2023 Within the past 12 months, the food you bought just didn't last and you didn't have money to get more.Never true10/10/2023RAPARE - TransportationAnswerDate RecordedIn the past 12 months, has lack of transportation kept you from medical appointments or from getting medications?No10/10/2023In the past 12 months, has lack of transportation kept you from meetings, work, or from getting things needed for daily living?No10/10/2023Housing Stability Vital SignAnswerDate RecordedIn the last 12 months, was there a time when you were not able to pay the mortgage or rent on time?No09/14/2022In the last 12 months, how many places have you lived?In the last 12 months, was there a time when you did not have a steady place to sleep or slept in [facility] (including now)?No 09/14/2022Housing Stability Vital SignAnswerDate RecordedIn the last 12 months, was there a time when you were not able to pay the mortgage or rent on time?Yes 10/10/2023In the past 12 months, how many times have you moved where you were living?t any time in the past 12 months, were you homeless or living in a residential (including now)?No10/10/2023Sex and Gender InformationValueDate RecordedSex Assigned at DkhicHiym06/11/2023 2:56 PM EDTLegal LmrUkio0505/13/2022 6:55 PM EDTGender JxwodtdwSmie60/11/2023 2:56 PM EDTSexual OrientationStraight 09/08/2022 2:56 PM EDTdocumented as of this encounter Functional Status * Over the past 2 weeks, how often have you been bothered by any of the following problems?QuestionAnswerDate of AssessmentAuthorLittle interest or pleasure in doing thingsNot at all09/13/2024 7:44 AM Jayne Berrios MA Feeling down, depressed, or hopelessNot at all09/13/2024 7:44 AM Jayne Berrios MAPatient Health Questionnaire-2 Ofvdc242 7:44 AM Jayne Berrios MA documented as of this encounter Plan of Treatment Not on file documented as of this encounter Procedures Procedure NamePriorityDate/TimeAssociated DiagnosisCommentsXR KNEE 4V AP/PA/LAT/MERCH BIL01/04/2024 9:48 AM EST documented in this encounter Results * XR KNEE 4V AP/PA/LAT/MERCH RAMIRO (01/04/2024 9:48 AM EST)Anatomical Region LateralityModalityOtherSpecimen (Source)Anatomical Location / Laterality Collection Method / VolumeCollection TimeReceived Time01/04/2024 9:48 AM EST Narrative 01/04/2024 1:23 PM EST * * *Final Report* * * DATE OF EXAM: Dec ??2023 ??9:48AM ?? VHX ?? [id number] ??- ??XR KNEE 4V AP/PA/LAT/MERCH RAMIRO ?? / PROCEDURE REASON: multiple diagnoses ? * * * * Physician Interpretation * * * * EXAMINATION / TECHNIQUE: ??XR KNEE 4V AP/PA/LAT/MERCH RAMIRO PATIENT/TECHNOLOGIST PROVIDED HISTORY: ?? 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 Mild right knee osteoarthritis. Pipe Insulator Helper: ADELA ?? Transcribe Date/Time: Dec?2023 12:48P Dictated by : CHELSEA REEVES MD This examination was interpreted and the report reviewed and electronically signed by: CHELSEA REEVES MD on Dec ??2023 ??1:21PM ??EST [id number]^AGFA_IDC^SI^ACN Procedure Note Radiology, Radiologist, - 01/04/2024 * [...] similar to 05/04/2017. Mild right knee osteoarthritis. Pipe Insulator Helper: ADELA Transcribe Date/Time: Jan 04 2024 12:48P Dictated by : CHELSEA REEVES MD This examination was interpreted and the report reviewed and electronically signed by: CHELSEA REEVES MD on Jan 04 2024 1:21PM EST [id number]^AGFA_IDC^SI^ACN Authorizing ProviderResult TypeResult StatusGeneric External Data Provider [facility]NC IMAGINGFinal Result documented in this encounter Visit Diagnoses Not on filedocumented in this encounter Care Teams Team MemberRelationshipSpecialtyStart DateEnd Date Malcolm Cid MD [address] [facility] [address] [place] [address] PCP - Generalmi Medicine07/29/22 Malcolm Cid MD [address] [facility] [address] [place] [address] PCP - [facility]05/30/22WednesdayAlma LPN [address] [facility] [address] [place] [address] Licensed Practical NurseFamily Medicine Jayne Del Valle, RN [address] [place] [address] Licensed Practical NurseFamily Medicine Merry Paz LPN [address] [facility] [address] [place] [address] 05/19/24documented as of this encounter
--- OUTSIDE RECORDS SUMMARY | 2024-12-31 20:45 | XMS_ITS | Encounter Summary ---
Author Organization [facility] Address [address] [place] [address] Care Team Providers Care Assistant Warehouse Manager Name Role Phone Malcolm Cid MD Primary Care Provider [phone] Source Comments In the event this information is protected by the Federal Confidentiality of Alcohol and Drug AbusePatient Records regulations: The Federal rules restrict any use of the information to criminally investigate or prosecute any alcohol or drug abuse patient.[facility] Encounter Details DateTypeDepartmentCare Team (Latest Contact Info)Avtppldnizx58/27/2025Travel Social History Tobacco UseTypesPacks/DayYears UsedDateSmoking Tobacco: NeverSmokeless Tobacco: CurrentChewPHQ-2AnswerDate RecordedPHQ-2 hxnhl9604Area Deprivation Index AnswerDate RecordedNational Score (1-100), lower number is lower risk87 08/14/2022State Score (1-10), lower number is lower fwkf0703Data from: https://www.neighborhoodatlas.medicine.[facility].edu/. Last address used for [address] [facility]22Sex and Gender InformationValueDate Recorded Sex Assigned at OjmfoMzhj30/10/2020 12:50 PM EDTLegal BdgHpja26/09/2015 3:20 PM ESTGender WpuirqsuVyfe14/10/2020 12:50 PM EDTSexual OrientationStraight 11/09/2019 12:50 PM EDTdocumented as of this encounter Functional Status * Are you deaf or do you have serious difficulty hearing?AnswerDate of OjlmnshgldZsapmdHu85/26/2018 6:15 PM Domi De León RN * Are you blind or do you have serious difficulty seeing, even when wearing glasses?AnswerDate of OullepacctMgkyxzTh69/26/2018 6:15 PM Domi De León RN * Do you have serious difficulty walking or climbing stairs?AnswerDate of CegqysajmvHrnsdgYx66/26/2018 6:15 PM Domi De León RN * Do you have difficulty dressing or bathing?AnswerDate of AssessmentAuthorNo 04/26/2017 6:15 PM Domi De León RN * Because of a physical, mental, or emotional condition, do you have difficulty doing errands alone such as visiting a doctor's office or shopping?AnswerDate of FrchefdtbwBtwkdjBf54/26/2018 6:15 PM Domi De León RN documented as of this encounter Mental Status * Because of a physical, mental, or emotional condition, do you have serious difficulty concentrating, remembering, or making decisions?AnswerEntry Date VvceumOi50/26/2018 6:15 PM Domi De León RN documented in this encounter Plan of Treatment DateTypeDepartmentCare Team (Latest Contact Info)Pmceixnuvdt61/11/2025 4:00 PM ESTOffice Visit Rheumatology [address] [place] [address] [place] [address] [place], [place] [id number] FU 3 MON?AT 11:40 , 4 OR 4:30 slots . Thxdocumented as of this encounter Visit Diagnoses Not on filedocumented in this encounter Care Teams Team MemberRelationshipSpecialtyStart DateEnd Date Malcolm Cid MD PCP - GeneralFamily Rxklpzam43/9/15documented as of this encounter
--- OUTSIDE RECORDS SUMMARY | 2024-12-31 20:45 | XMS_ITS | CCD ---
Author Organization [facility] Care Team Providers Care Truer Pinion [employer] Wheel Name Role Phone LEYDI ACEVES Primary Care [...] Primary Care Unavailable KETAN, DR HOLLEY Primary [facility], [place] Unavailable HAY ., DR DUGGAN Consulting Unavailable [...] ., DR DUGGAN Admitting Unavailable Ketan MD [facility] Primary Care Provider KAYCE COFFMAN Referring Unavailable LEYDI ACEVES Primary Care Unavailable Ladi Huber Attending [facility]available [facility] Leydi Aceves MD Unavailable Ketan CABRAL [facility] Provider MD Leydi Aceves Primary Care Provider [phone] MD Nicola Leyva Attending Provider Nicola Leyva Attending Unavailab le Leydi Aceves Primary Care Unavailable Adam Young Admitting Unavailable Nicola Leyva Attending Unavailab le Leydi Aceves [facility] Care Unavailable Nicola Leyva Admitting Unavailab le Wednesday [address] LIAISON, Alma Unavailable DELMY BOYLE Referring Unavailable KETANLEYDI [facility] Care Unavailable Jayne Del Valle RN Unavailable Paz [address] LIAISON, Merry Unavailable Unavailable Paz [address] LIAISON, Merry Unavailable MARINA REES Attending Unavailable MARINA REES Attending Unavailable HEMMARINA BOYKIN Attending Unavailable MARINA REES Attending Unavailable MARINA REES Attending Unavailable MARINA REES Attending Unavailable Wednesday [address] LIAISON, Alma Unavailable Ivon BENITES Jayne Unavailable KETANLEYDI [place] [facility] Primary Care Unavailable DELMY BOYLE Referring Unavailable KETAN, RUGEN MABALAY Primary Care Unavailable KETAN, RUGEN MABALAY Primary Care Unavailable DELMY BOYLE Referring Unavailable KETAN, RUGEN MABALAY Primary Care Unavailable MANDELMY HUNTER Referring Unavailable KETAN, RUGEN MABALAY Primary Care Unavailable KETAN, RUGEN MABALAY Primary Care Unavailable DELMY BOYLE Attending Unavailable DELMY BOYLE Referring Unavailable KETAN, RUGEN MABALAY Primary Care Unavailable DELMY BOYLE Attending Unavailable KETAN, RUGEN MABALAY Primary Care Unavailable MANZOGuillermo, DELMY [place] Referring Unavailable KETAN, RUGEN MABALAY Primary Care Unavailable KETAN, RUGEN MABALAY Primary Care Unavailable MANDALE, DELMY D Referring Unavailable KETAN, RUGEN MABALAY Primary Care Unavailable KETAN, RUGEN MABALAY Primary Care Unavailable Medications Current Medications MedicationDrug Class(es)DatesSig (Normalized)Sig (Original)acetaminophen 325 mg / HYDROcodone bitartrate 5 mg oral tablet (20 sources)Opioid AgonistStart: 08-07-2024 End: 56-75-8532fzub 1 tablet by mouth onceHYDROcodone-acetaminophen ([place]) 5- 325 MG tablet Indications: Rheumatoid arthritis involving multiple sites with positive rheumatoid factor (HCC) Take 1 tablet by mouth every 12 (twelve) hours if needed for severe pain 60 tablet 12/05/2024 01/04/2025 ActiveStart: 07-07-2024 End: 61-61-8055hfji 1 tablet by mouth once daily as needed for painHYDROcodone- acetaminophen ([place]) 5-325 MG tablet Indications: Rheumatoid arthritis involving multiple sites with positive rheumatoid factor (CMS/HCC) Take 1 tablet by mouth Daily as needed for severe pain for up to 5 days 5 tablet 07/07/2024 07/12/2024 ActiveStart: 07-03-2024 End: 12-72-4610yczf 1 tablet by mouth onceHYDROcodone-acetaminophen ([place]) 5- 325 MG tablet Indications: Rheumatoid arthritis involving multiple sites with positive rheumatoid factor (CMS/HCC) Take 1 tablet by mouth every 12 (twelve) hours if needed for severe pain for up to 5 days 10 tablet 07/03/2024 07/07/2024 Discontinued (Reorder)Start: 06-27-2024 End: 20-50-7212ioks 1 tablet by mouth every eight hours for painHYDROcodone- acetaminophen ([place]) 5-325 MG tablet Indications: Rheumatoid arthritis involving multiple sites with positive rheumatoid factor (CMS/HCC) Take 1 tablet by mouth every 8 (eight) hours if needed for severe pain for up to 5 days 15 tablet 06/27/2024 07/03/2024 Discontinued (Reorder)Start: 05-18-2024 End: 26-13-0747gbdw 1 tablet by mouth every six hours for painHYDROcodone- acetaminophen ([place]) 5-325 MG tablet Indications: Rheumatoid arthritis involving multiple sites with positive rheumatoid factor (CMS/HCC) Take 1 tablet by mouth every 6 (six) hours if needed for severe pain for up to 5 days 20 tablet 06/19/2024 06/24/2024 ActiveStart: 05-11-2024 End: 05-47-6211yrry 1 tablet by mouth every six hours for painHYDROcodone- acetaminophen ([place]) 5-325 MG tablet Indications: Abscess of right index finger Take 1tablet by mouth every 6 (six) hours if needed for severe pain for up to 5 days 20 tablet ActiveStart: 04-20-2024 End: 95-74-8595qdlk 1 tablet by mouth every six hours for painHYDROcodone- acetaminophen ([place]) 5-325 MG tablet Indications: Abscess of right index finger Take 1tablet by mouth every 6 (six) hours if needed for severe pain for up to 5 days 20 tablet Activeacetaminophen 325 mg / oxyCODONE hydrochloride 5 mg oral tablet (16 sources)Opioid AgonistStart: 07-31-2024 End: 54-16-3419zkza 1 tablet by mouth every four hours as needed for pain and painoxyCODONE-acetaminophen (Percocet) 5-325 MG tablet Take 1 tablet by mouth every 4 (four) hours if needed for severe pain or moderate pain 07/31/2024 08/07/2024 Discontinued (Therapy completed)Start: 04-15-2024 End: 61-47-1549llud 1 tablet by mouth every four hours as needed for pain and painoxyCODONE-acetaminophen (Percocet) 5-325 MG tablet Take 1 tablet by mouth every 4 (four) hours if needed for severe pain or moderate pain 04/15/2024 04/20/2024 Discontinued (Therapy completed)Start: 01-11-2024 End: 23-29-0035llzf 1 tablet by mouth every six hours for painoxyCODONE- acetaminophen (Percocet) 5-325 MG tablet Indications: Rheumatoid arthritis involving multiple sites with positive rheumatoid factor (CMS/HCC) Take 1 tablet by mouth every 6 (six) hours if needed for severe pain for up to 5 days 20 tablet 01/21/2024 01/26/2024 ActiveStart: 05-09-2023 End: 03-96-3004luky 1 tablet by mouth every eight hoursOxycodone-Acetaminophen Discontinued 1 TAB PO Every 8 hours May 09, 2023 1:00am August 22, 2023 12:43pmStart: 03-16-2023 End: 59-83-5853wrau 1 tablet by mouth every eight hours for painoxyCODONE- acetaminophen (Percocet) 5-325 MG tablet Indications: Rheumatoid arthritis involving multiple sites with positive rheumatoid factor (CMS/HCC) Take 1 tablet by mouth every 8 (eight) hours ifneeded for severe pain 90 tablet 0 03/16/2023 04/15/2023 ActiveStart: 12-07-2021 End: 42-03-9729borj 1 tablet by mouth twice dailyOxycodone-Acetaminophen Discontinued 1 TAB PO Twice daily December 07, 2021 12:00am May 09, 2023 1:[id number] 200 actuat albuterol 0.09 mg/actuat metered dose inhaler (6 sources)beta2-Adrenergic AgonistStart: 55-16-5964vhhnaqtpf HFA 90 mcg/act inhaler 10/10/2023 Activeallopurinol 100 mg oral tablet (20 sources)Xanthine Oxidase InhibitorStart: 65-38-0898Sttuwvampqy Active 300 MG PO Daily May 09, 2023 1:00am take with Allopurinol 100mg tablet to =400mg Start: 03-08-2023 End: 65-07-3419dbbs 2 tablets by mouth once dailyallopurinol (Zyloprim) 100 MG tablet Take 200 mg by mouth Daily Take with Allopurinol 3oomg (2 tabs)=700mg total 03/08/2023 11/07/2024 Discontinued (Other)Start: 42-32-3741skdc 1 tablet by mouth once dailyallopurinol (Zyloprim) 100 MG tablet Take 100 mg by mouth Daily Take with Allopurinol 3oomg (2 tabs)=700mg total 03/08/2023 ActiveStart: 03-08-2023 End: 94-39-5552Plmpimdoieb Active 100 MG PO Daily May 09, 2023 1:00am take with Allopurinol 300mg tablet to =400mgStart: 01-01-2022 End: 38-94-0563bxel 2 tablets by mouth in the morningallopurinol (Zyloprim) 300 MG tablet Take 600 mg by mouth in the morning. 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 Using 300 mg and 100 mg tabs, take 700 mg daily (in divided doses) 180 tablet 1 03/08/2023 06/24/2023 Discontinued Start: 05-30-2021 End: 18-81-6234fxvchryhigd (ZYLOPRIM) 100 mg tablet 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 60 tablet 12/07/2023 01/21/2024 Discontinued (Therapy completed)Start: 00-84-4601thud 0.5 mg by mouth three times daily Alprazolam Active 0.5 MG PO Three times daily May 09, 2023 1:00amStart: 53-12-2599bcsk 1 tablet by mouth three times daily as needed for anxiety ALPRAZolam (Xanax) 0.5 MG tablet Indications: Anxiety Take 1 tablet (0.5 mg) by mouth 3 (three) times a day as needed for anxiety 90 tablet 0 03/16/2023 Active Start: 12-07-2021 End: 22-42-5950ntao 0.5 mg by mouth twice dailyAlprazolam Discontinued 0.5 MG PO Twice daily December 07, 2021 12:00am May 09, 2023 1:47amStart: 08-28-2019 End: 32-67-1795qngi 1 tablet by mouth twice dailyALPRAZolam (XANAX) 0.25 mg tablet Take 0.25 mg by mouth twice daily. 08/28/2019 01/04/2024 Discontinued Comment on above:Take 0.25 mg by mouth twice daily.amLODIPine 10 mg oral tablet (20 sources)Dihydropyridine Calcium Channel BlockerStart: 95-40-8286dfdm 1 tablet by mouth once dailyamLODIPine (Norvasc) 10 MG tablet Indications: Essential hypertension TAKE 1 TABLET BY MOUTH EVERY DAY FOR 100 DAYS 100 tablet 3 08/01/2024 ActiveStart: 10-09-2022 End: 55-90-9082fxkk 10 mg by mouth once dailyAmlodipine Active 10 MG PO Daily May 09, 2023 1:00amStart: 84-16-6486mpva 1 tablet by mouth twice daily amLODIPine (NORVASC) 5 mg tablet Take 1 tablet by mouth twice daily. 180 tablet 3 12/25/2020 ActiveComment on above:Take 1 tablet by mouth twice daily. amoxicillin 875 mg / clavulanate 125 mg oral tablet (5 sources)Penicillin-class AntibacterialStart: 04-20-2024 End: 60-06-8314abuf 1 tablet by mouth in the morningamoxicillin-clavulanate (Augmentin) 875-125 MG tablet Indications: Abscess of right index finger Take 1 tablet (875 mg) by mouth in the morning and 1 tablet (875 mg) in the evening. Take with meals. Do all this for 10 days. 20 tablet 04/20/2024 04/30/2024 Active Start: 12-24-2023 End: 25-30-7090myzw 1 tablet by mouth in the morningamoxicillin-clavulanate (Augmentin) 875-125 MG tablet Indications: Chronic obstructive pulmonary dis ease, unspecified COPD type (CMS/HCC) Take 1 tablet (875 mg) by mouth in the morning and 1 tablet (875 mg) in the evening. Take with meals. Do all this for 7 days. 14 tablet 12/24/2023 12/31/2023 ActiveStart: 90-73-3846dmxd 1 tablet by mouth twice dailyAmoxicillin-Pot Clavulanate Active 1 TAB PO Twice daily 18 12August 22, 2023 12:00ambenzonatate 200 mg oral capsule (1 source)Non-narcotic AntitussiveStart: 12-24-2023 End: 93-77-3043ipcz 1 capsule by mouth three times daily as needed for cough benzonatate (Tessalon) 200 MG capsule Indications: Chronic obstructive pulmonary disease, unspecified COPD type (CMS/HCC) Take 1 capsule (200 mg) by mouth 3 (three) times a day as needed for cough for up to 7 days Do not crush or chew. 21 capsule 12/24/2023 12/31/2023 Activebrexpiprazole 2 mg oral tablet (7 sources)Atypical AntipsychoticStart: 62-07-9922omxu 1 tablet by mouth once dailyBrexpiprazole (Rexulti) 2 MG tablet Indications: Anxiety Take 1 tablet by mouth Daily 30 tablet 3 07/09/2023 Activecarvedilol 6.25 mg oral tablet (20 sources)alpha-Adrenergic [place], beta-Adrenergic BlockerStart: 12-07-2021 End: 59-49-1780uxqo 1 tablet by mouth twice daily at mealtimecarvedilol (Coreg) 6.25 MG tablet Indications: Essential (primary) hypertension TAKE 1 TABLET BY MOUTH TWICE A DAY WITH FOOD 180 tablet 3 09/21/2022 Activecelecoxib 100 mg oral capsule (4 sources)Nonsteroidal Anti-inflammatory DrugStart: 12-07-2021 End: 23-57-8109dgus 1 capsule by mouth in the morningcelecoxib (CeleBREX) 100 MG capsule Take 100 mg by mouth in the morning and 100 mg before bedtime. 0 03/17/2022 ActivecloNIDine hydrochloride 0.1 mg oral tablet (20 sources)Central alpha-2 Adrenergic AgonistStart: 76-23-7506picg 1 tablet by mouth twice dailycloNIDine (Catapres) 0.1 MG tablet Indications: Essential hypertension TAKE 1 TABLET BY MOUTH TWICEA DAY 180 tablet 3 08/07/2024 Active Start: 03-11-2021 End: 27-42-3839gfnt 1 tablet by mouth twice dailycloNIDine HCl (CATAPRES) 0.1 mg tablet Take 0.1 mg by mouth two times a day. 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 90 tablet 2 10/03/2024 ActiveStart: 05-30-2021 End: 63-28-7094rqes 1 tablet by mouth every other daycolchicine 0.6 MG tablet Indications: Rheumatoid arthritis involving multiple sites with positive rh eumatoid factor (HCC) TAKE 1 TABLET BY MOUTH EVERY OTHER DAY 15 tablet 11 09/16/2024 ActiveComment on above:Take 1 tablet by mouth every other day.TAKE 1 TABLET BY MOUTH EVERY OTHER DAYdiclofenac sodium 0.01 mg/mg topical gel (11 sources)Nonsteroidal Anti-inflammatory DrugStart: 85-23-1390slcaksfnss sodium (Voltaren Arthritis Pain) 1 % gel Indications: Rheumatoid arthritis involving multiple sites with positive rheumatoid factor (CMS/HCC) Apply 2 g topically in the morning and 2 g in the evening and 2 g before bedtime. 100 g 2 01/21/2024 Activedoxycycline hyclate 100 mg oral tablet (2 sources)Tetracycline-class DrugStart: 50-05-7003fczk 1 tablet by mouth in the morningdoxycycline (Vibra-Tabs) 100 MG tablet Take 100 mg by mouth in the morning and 100 mg before bedtime. 0 02/16/2023 Activefamotidine 20 mg oral tablet (2 sources)Histamine-2 Receptor AntagonistStart: 01-15-2024 End: 85-79-1824ffbl 1 tablet by mouth in the morningfamotidine (Pepcid) 20 MG tablet Take 20 mg by mouth in the morning and 20 mg before bedtime. 01/15/2024 01/21/2024 Discontinued (Other)febuxostat 40 mg oral tablet (13 sources)Xanthine Oxidase InhibitorStart: 06-95-0236hbzk 1 tablet by mouth once dailyfebuxostat (Uloric) 40 MG tablet Take 40 mg by mouth Daily 11/06/2024 Activefolic acid 1 mg oral tablet (12 sources)Start: 38-00-1961glxd 1 tablet by mouth once dailyfolic acid (Folvite) 1 MG tablet Take 1,000 mcg by mouth Daily 10/09/2024 Activegabapentin 300 mg oral capsule (20 sources)Anti-epileptic AgentStart: 19-06-1867faeg 1 capsule by mouth at bedtimegabapentin (Neurontin) 300 MG capsule Indications: Other chronic pain TAKE 1 CAPSULE (300 MG) BY MOUTH IN THE MORNING AND AT BEDTIME 60 capsule 6 11/20/2024 ActiveStart: 71-10-2118luye 1 capsule by mouth in the morning gabapentin (Neurontin) 300 MG capsule Indications: Other chronic pain Take 1 capsule (300 mg) by mouth in the morning and 1 capsule (300 mg) before bedtime. 100 capsule 3 06/05/2024 ActiveStart: 70-23-9261zdjn 1 capsule by mouth once daily at bedtimegabapentin (Neurontin) 300 MG capsule Indications: Other chronic pain TAKE 1 CAPSULE BY MOUTH EVERYMORNING, EVERY EVENING, AND AT BEDTIME 90 capsule 4 01/17/2024 ActiveStart: 27-83-3518eyvj 1 capsule by mouth at bedtime gabapentin (Neurontin) 300 MG capsule Indications: Other chronic pain TAKE 1 CAPSULE BY MOUTH IN THE MORNING, EVENING AND BEFORE BEDTIME 90 capsule 4 08/26/2023 ActiveStart: 08-22-2023 End: 48-89-3341gvov 300 mg by mouth three times dailyGabapentin Discontinued 300 MG PO Three times daily August 22, 2023 12:00am August 22, 2023 12:42pmStart: 46-95-1142iucn 1 capsule by mouth at bedtimegabapentin (Neurontin) 300 MG capsule Indications: Other chronic pain Take 1 capsule (300 mg) by mouth at bedtime 100 capsule 3 04/05/2023 ActiveStart: 69-39-6551enti 1 capsule by mouth at bedtimegabapentin (Neurontin) 300 MG capsule Indications: Other chronic pain TAKE 1 CAPSULE BY MOUTH IN THE MORNING,IN THE EVENING,AND BEFORE BEDTIME 100 capsule 3 03/08/2023 Activeindomethacin 50 mg oral capsule (3 sources)Nonsteroidal Anti-inflammatory DrugStart: 01-15-2024 End: 62-37-9150qdxxiujgfyds (Indocin) 50 MG capsule 01/15/2024 01/22/2024 Active lidocaine 0.05 mg/mg medicated patch (11 sources)Antiarrhythmic, Amide Local AnestheticStart: 01-06-2024 End: 74-01-3308wpxag 1 dose transdermal route in the morninglidocaine (Lidoderm) 5 % patch Place 1 patch on the skin in the morning. 01/06/2024 04/20/2024 Disco ntinued (Other)Start: 60-55-4242agvgs 1 dose transdermal route once daily, then [...] oral tablet (12 sources)Folate Analog Metabolic InhibitorStart: 98-70-3934oqow 1 tablet by mouth every weekmethotrexate 2.5 MG tablet Take 2.5 mg by mouth 1 (one) time per week. 10/09/2024 ActiveStart: 10-09-2024 End: 99-52-2480qucfnbmwtsiw 2.5 mg tablet Indications: Chronic tophaceous gout Take 6 tablets by mouth one time a week. Hold if you have infection or fevers 100.4 F or higher. May resume once infection resolved. LABS EVERY 3 MONTHS 72 tablet 10/09/2024 01/07/2025 Activeondansetron 4 mg disintegrating oral tablet (2 sources)Serotonin-3 Receptor AntagonistStart: 54-36-6524fzza 1 tablet by mouth every eight hours as neededondansetron ODT (Zofran-ODT) 4 MG disintegrating tablet Take 4 mg by mouth every 8 (eight) hours ifneeded. 0 01/11/2023 ActivepredniSONE 5 mg oral tablet (20 sources)Start: 87-72-8013yjqz 1 tablet by mouth once daily as needed predniSONE (Deltasone) 5 MG tablet Take 5 mg by mouth Daily PRN 11/03/2024 ActiveStart: 72-65-6433ocucloGPVI (DELTASONE) 5 mg tablet Take 6 tab in AM on day 1 then reduce dose by 1 tablet every dayuntil off 21 tablet 11/03/2024 ActiveStart: 09-18-2024 End: 89-86-8537pnem 4 tablets by mouth once daily, then [...] 09/18/2024 10/02/2024 Discontinued (Therapy completed)Start: 07-30-2024 End: 64-10-2167dnfjueGURK (Deltasone) 10 MG tablet Take by mouth Daily 50mg daily x3 days, 40mg daily x3 days, 30mg daily x3 days, 20mg daily x3 days, 10mg daily x3 days, 5mg daily x4 days. 07/30/2024 08/21/2024 ActiveStart: 05-16-2024 End: 19-38-6478qfom 4 tablets by mouth once daily, then [...] 40 tablet 05/16/2024 05/31/2024 ActiveStart: 04-16-2024 End: 50-04-8203undc 4 tablets by mouth once daily, then [...] 40 tablet 04/16/2024 05/02/2024 ActiveStart: 01-21-2024 End: 08-05-3507wiak 4 tablets by mouth once daily, then [...] 30 tablet 01/21/2024 02/01/2024 ActiveStart: 01-15-2024 End: 56-77-7190lhdufaXSXP (Deltasone) 50 MG tablet 01/15/2024 01/21/2024 Discontinued (Therapy completed)Start: 11-30-2023 End: 66-66-6821kils 4 tablets by mouth once daily, then [...] 4 days. 40 tablet 11/30/2023 12/16/2023 ActiveStart: 29-38-7910kuypwfMYOS (Deltasone) 20 MG tablet 10/08/2023 ActiveStart: 54-28-2474umfg 5 tablets by mouth once daily predniSONE (Deltasone) 10 MG tablet TAKE 5 TABS BY MOUTH DAILY X5DAYS,4 TABS X5DAYS,3 TABS X5DAYS,2TABS X5DAYS,1 TAB X5DAYS DIRECTED 0 02/24/2023 Active Start: 11-13-2022 End: 51-84-8014izwcclGSML (DELTASONE) 5 mg tablet Take 6 tab in AM on day 1 then reduce dose by 1 tablet every dayuntil off 21 tablet 07/07/2023 01/04/2024 DiscontinuedComment on above:Take 6 tab in AM on day 1 then reduce dose by 1 tablet every day until offQUEtiapine 100 mg oral tablet (20 sources)Atypical AntipsychoticStart: 05-12-2023 End: 37-72-3693ylcm 1 tablet by mouth at bedtimeQUEtiapine (SEROquel) 100 MG tablet Take 100 mg by mouth at bedtime 06/29/2023 ActiveStart: 05-09-2023 End: 20-62-2716uzki 75 mg by mouth at bedtimeQuetiapine Discontinued 75 MG PO Bedtime May 09, 2023 1:00am May 12, 2023 7:53amStart: 12-07-2021 End: 20-14-8622luyh 1 tablet by mouth at bedtimeQUEtiapine (SEROquel) 25 MG tablet Take 25 mg by mouth at bedtime. 0 02/16/2022 Activetake 1 tablet by mouth at bedtimeQUEtiapine (SEROquel) 50 MG tablet Take 50 mg by mouth at bedtime. 0 ActivetraMADol hydrochloride 50 mg oral tablet (20 sources)Opioid AgonistStart: 04-04-2024 End: 39-93-2539xbrr 1 tablet by mouth oncetraMADol (Ultram) 50 MG tablet Indications: Rheumatoid arthritis involving multiple sites with positive rheumatoid factor (CMS/HCC) Take 1 tablet (50 mg) by mouth every 12 (twelve) hours if needed for moderate pain 60 tablet 07/26/2024 08/25/2024 ActiveStart: 10-11-2023 End: 15-78-6093kpkn 1 tablet by mouth oncetraMADol (Ultram) 50 MG tablet Indications: Rheumatoid arthritis involving multiple sites with positive rheumatoid factor (CMS/HCC) Take 1 tablet (50 mg) by mouth every 12 (twelve) hours if needed for moderate pain 60 tablet 01/07/2024 02/06/2024 ActiveStart: 06-24-2023 End: 13-49-9433iviv 1 tablet by mouth twice daily as needed for paintraMADol (ULTRAM) 50 mg tablet Indications: Chronic tophaceous gout Take 1 tablet by mouth two times a day as needed for pain for up to 7 days. FOR SHORT TERM USE ONLY. 10 tablet 06/24/2023 01/04/2024 DiscontinuedStart: 05-09-2023 End: 84-02-5772nnpy 50 mg by mouth every six hoursTramadol Discontinued 50 MG PO Every 6 hours May 09, 2023 1:00am August 22, 2023 12:43pmStart: 03-29-2023 End: 59-09-8216whnr 1 tablet by mouth every six hours for paintraMADol (Ultram) 50 MG tablet Indications: Rheumatoid arthritis involving multiple sites with positive rheumatoid factor (CMS/HCC) Take 1 tablet (50 mg) by mouth every 6 (six) hours if needed for severe pain 120 tablet 0 03/29/2023 04/28/2023 Active Start: 12-07-2021 End: 22-57-9135nqgj 100 mg by mouth four times dailyTramadol Discontinued 100 MG PO Four times daily December 07, 2021 12:00am May 09, 2023 1:48amStart: 06-18-2017 End: 72-20-4031omgy 1 tablet by mouth every eight hours [...] tablet (9 sources)Serotonin Reuptake InhibitorStart: 11-12-2023 End: 10-88-9560zrvb 1-2 tablets by mouth once daily at bedtime as needed for sleeptraZODone (Desyrel) 50 MG tablet TAKE 1 - 2 TABLETS BY MOUTH EVERYDAY AT BEDTIME NEEDED FOR SLEEP 11/12/2023 04/20/2024 Discontinued (Other)Start: 84-95-6764dhaf 50 mg by mouth once daily at bedtimeTrazodone Active 50 MG PO Daily at bedtime August 22, 2023 12:00am Completed/Discontinued Medications MedicationDrug Class(es)DatesSig (Normalized)Sig (Original)acamprosate calcium 333 mg delayed release oral tablet (2 sources)Start: 12-10-2021 End: 02-55-9646xhcs 333 mg by mouth three times dailyAcamprosate Discontinued 333 MG PO Three times daily 45 15 December 10, 2021 12:00am May 09, 2023 1:48ambaclofen 10 mg oral tablet (2 sources)gamma-Aminobutyric Acid-ergic AgonistStart: 04-05-2023 End: 12-29-5020ijkv 10 mg by mouth three times dailyBaclofen Discontinued 10 MG PO Three times daily May 09, 2023 1:00am August 22, 2023 12:35pm12 hr buPROPion hydrochloride 100 mg extended release oral tablet (13 sources)AminoketoneStart: 10-08-2019 End: 98-52-5350ynxp 1 tablet by mouth twice dailybuPROPion SR (WELLBUTRIN SR) 100 mg 12 hr tablet Take 100 mg by mouth twice daily. 10/08/2019 01/04/2024 DiscontinuedComment on above:Take 100 mg by mouth twice daily.busPIRone hydrochloride 5 mg oral tablet (1 source)Start: 05-12-2023 End: 06-37-0832regr 5 mg by mouth twice dailyBuspirone Discontinued 5 MG PO Twice daily May 12, 2023 12:00am August 22, 2023 12:42pm cholecalciferol 0.05 mg oral tablet (7 sources)Vitamin DStart: 17-98-1406wasg 1 tablet by mouth once daily cholecalciferol (VITAMIN D3) 50 mcg (2,000 unit) tablet Take 1 tablet by mouth once daily. 90 tablet 0 12/23/2020 ActiveComment on above:Take 1 tablet by mouth once daily.diphenhydrAMINE (1 source)Histamine-1 Receptor AntagonistStart: 11-14-2024 End: 15-62-977109 mg, INTRAVENOUS, ONCE, 1 dose, On Wed11/14/24 at 1130 escitalopram 20 mg oral tablet (5 sources)Serotonin Reuptake InhibitorStart: 05-09-2023 End: 25-12-8832doho 20 mg by mouth once dailyEscitalopram Oxalate Discontinued 20 MG PO Daily May 09, 2023 1:00am August 22, 2023 12:42pmStart: 06-10-2022 take 1 tablet by mouth in the morningescitalopram (Lexapro) 20 MG tablet Take 20 mg by mouth in the morning. 0 06/10/2022 ActiveStart: 12-10-2021 End: 29-01-2909rbxs 5 mg by mouth once daily in the morningEscitalopram Oxalate Discontinued 5 MG PO Every morning December 10, 2021 12:00am May 09, 2023 1:48ammethylPREDNISolone 125 mg injection (8 sources)CorticosteroidStart: 11-14-2024 End: 54-33-5446960 mg, INTRAVENOUS, ONCE, 1 dose, On Wed11/14/24 at 1130Start: 50-67-9137xcjofcONLVNPXqiiwz (Medrol Dospak) 4 MG tablets Indications: Rheumatoid arthritis involving multiple sites with positive rheumatoid factor ([facility]) Follow schedule on package instructions 21 tablet 07/20/2024 Active Start: 04-08-9369rjbhejZXBJSMNuvzot (Medrol Dospak) 4 MG tablets TAKE 6 TABLETS ON DAY 1 DIRECTED ON PACKAGE AND DECREASE BY 1 TAB EACH DAY FOR A TOTAL OF 6 DAYS 06/23/2024 ActiveNaloxone (1 source)Opioid AntagonistStart: 08-22-2023 End: 22-64-8019Vblnsffi Discontinued INTRANASAL August 22, 2023 12:00am August [...] (2 sources)Central alpha-2 Adrenergic AgonistStart: 12-07-2021 End: 28-87-4555dwfx 4 mg by mouth three times dailyTizanidine Discontinued 4 MG PO Three times daily December 07, 2021 12:00am May 09, 2023 1:48am Problems Active Problems Problem ClassificationProblemDateDocumented DateEpisodic/ChronicAlcohol-related disorders (1 source)Alcohol dependence with intoxication, unspecified; Translations: [ALCOHOL DEPEND W/INTOX UNS]Onset: 80-73-8726UzyhmnnIltnxym kidney disease (20 sources)Chronic kidney disease stage 3; Translations: [Stage 3 chronic kidney disease, unspecified whether stage 3a or 3b CKD ([facility])]Onset: 07-29-2022 ChronicE Codes: Natural/environment (1 source)Exposure to other specified factors, initial encounter; Translations: [EXPOSURE OTHER SPEC FACTORS INITIAL]Onset: 50-83-6880VdqatuxmZcokppeoa hypertension (20 sources)Essential hypertension; Translations: [Essential (primary) hypertension]Onset: 903258-02-7904BjowhsxWwkwn of unknown origin (1 source)Fever, unspecified; Translations: [FEVER UNSPECIFIED]Onset: 06-23-2022 EpisodicGout and other crystal arthropathies (20 sources)Chronic primary gouty arthritis; Translations: [Idiopathic chronic gout, multiple sites, with tophus (tophi)]Onset: 96-63-5813CjtlakiGkdirknk; including migraine (3 sources)Migraine; Translations: [Migraine without aura, not intractable, without status migrainosus]65-60-6440IpoxbxpUltehkma disorders (20 sources)Immunodeficiency disorder; Translations: [Immunodeficiency, unspecified]Onset: 408340-61-3009AvedwkhWjqr disorders (20 sources)Recurrent major depressive episodes, moderate ; Translations: [Major depressive disorder, recurrent, moderate]Onset: 12-15-2021 Resolved: 204826-60-8333FdxwbwaQmuddqfdgje deficiencies (20 sources)Vitamin D deficiency; Translations: [Vitamin D deficiency, unspecified]Onset: 263926-06-1665MdtcjknAukg wounds of extremities (2 sources)Open wound of left lower leg; Translations: [Unspecified open wound, left lower leg, subsequent encounter]74-45-6901TraxuhsqJngbrqddesxhyn (20 sources)Localized, primary osteoarthritis of the shoulder region; Translations: [Primary osteoarthritis, unspecified shoulder]Onset: 07-29-2022 71-59-1912OqeovcbPlfsl aftercare (2 sources)Patient encounter status; Translations: [Other termite inspector (current) drug therapy]EpisodicOther aftercare (3 sources)Other custodial (current) drug therapy; Translations: [OTH CAST SHELL GRINDER CURRENT DRUG THERAPY]Onset: 93-69-6295MerlnwchUyhtr aftercare (2 sources)Long-term current use of drug therapy; Translations: [Other termite inspector (current) drug therapy]60-36-0351YhvmtdniEtjoo aftercare (2 sources)Removal of sutures done; Translations: [Encounter for removal of sutures]32-81-9372VclvnyhhQetkf connective tissue disease (4 sources)Other specified soft tissue disorders; Translations: [OTHER SPEC SOFT TISSUE DISORDERS]Onset: 80-26-9371HbzoejaePkoem connective tissue disease (3 sources)Pain in right arm; Translations: [PAIN IN RIGHT ARM]Onset: 05-31-2022 EpisodicOther connective tissue disease (8 sources)Enthesopathy of knee; Translations: [Other specified enthesopathies of unspecified lower limb, excluding foot]Onset: 078170-08-0627Dgtncapk Other nervous system disorders (20 sources)Chronic pain; Translations: [Other chronic pain]Onset: 04-26-2017 03-47-1104KbljjpoCreao non-traumatic joint disorders (1 source)Polyarthritis, unspecified; Translations: [POLYARTHRITIS UNSPECIFIED] Onset: 42-82-0414IpqtbbrGppos non-traumatic joint disorders (20 sources)Polyarthropathy; Translations: [Polyarthritis, unspecified]Onset: 436305-93-7190DjnvzloIcrni non-traumatic joint disorders (3 sources)Pain in left elbow; Translations: [PAIN IN LEFT ELBOW]Onset: 74-97-5918GzrmhzwjOsfnbehsei arthritis and related disease (20 sources)Rheumatoid arthritis of multiple joints; Translations: [Rheumatoid arthritis without rheumatoid factor, multiple sites]Onset: 04-25-2017 Resolved: 341056-99-7090HagezizAhrc and subcutaneous tissue infections (5 sources)Cellulitis of left lower limb; Translations: [Abscess of finger of right hand]Onset: 740092-63-1870YqwqcokcVehixqsxsch; intervertebral disc disorders; other back problems (20 sources)Degeneration of cervical intervertebral disc; Translations: [Other cervical disc degeneration, unspecified cervical region]Onset: 12-16-2022 50-19-9214DztptelYfroolmgf-related disorders (20 sources)Nicotine dependence; Translations: [Nicotine dependence, unspecified, uncomplicated]Onset: 431372-93-2410AofpmvkBhyluramsyq injury; contusion (9 sources)Unspecified superficial injury of left lower leg, initial encounter; Translations: [Contusion of right knee]Onset: 849326-35-7500Kovdukhv Unclassified (1 source)CONTACT W/AND (SUSP) EXPOS COVID-19; Translations: [CONTACT W/AND (SUSP) EXPOS COVID-19]Onset: 83-00-7287Jcnaxvitucpn (3 sources)LOW BACK PAIN, UNSPECIFIED; Translations: [LOW BACK PAIN, UNSPECIFIED]Onset: 01-16-2022 Past or Other Problems Problem ClassificationProblemDateDocumented DateEpisodic/ChronicAdjustment disorders (20 sources)Adjustment disorder with depressed mood; Translations: [Adjustment disorder with depressed mood]Onset: 07-29-2022 Resolved: 489385-13-5254ZjatpypUbsnamw disorders (20 sources)Anxiety; Translations: [Anxiety disorder, unspecified]Onset: 07-29-2022 Resolved: 046783-51-6209AqhyymnTstsrqafyv and other anemia (20 sources)Anemia; Translations: [Anemia, unspecified]Onset: 2015 40-17-8396FxvmfesaR Codes: Unspecified (1 source)Blood alcohol level of 240 mg/100 ml or more; Translations: [BLOOD ALCOHOL LV 240 MG/100 ML/MORE]Onset: 49-36-9923OoysgkluEjgqp and electrolyte disorders (20 sources)Hyponatremia; Translations: [Hypo-osmolality and hyponatremia]Onset: 367666-40-3043OxtcgoudMmuqqcb and fatigue (3 sources)Weakness; Translations: [WEAKNESS]Onset: 22-38-7726MnbfscecJddae connective tissue disease (1 source)Other muscle spasm; Translations: [OTHER MUSCLE SPASM]Onset: 77-85-9495KhvostdbKltzn connective tissue disease (20 sources)Full thickness rotator cuff tear; Translations: [Complete rotator cuff tear or rupture of unspecified shoulder, not specified as traumatic]Onset: 082043-01-5290XdfmrapzIvupz connective tissue disease (20 sources)Tear of left rotator cuff; Translations: [Unspecified rotator cuff tear or rupture of left shoulder, not specified as traumatic]Onset: 07-29-2022 05-69-5771TpoxsqmqGomxj nervous system disorders (1 source)Anesthesia of skin; Translations: [ANESTHESIA OF SKIN]Onset: 59-95-0364AfplimqhGycyy nervous system disorders (1 source)Paresthesia of skin; Translations: [PARESTHESIA OF SKIN]Onset: 64-73-2384KtezdafvWsece non-traumatic joint disorders (4 sources)Pain in unspecified joint; Translations: [PAIN IN UNSPECIFIED JOINT] Onset: 01-93-8872MimcwfsjQbziz upper respiratory infections (20 sources)Acute pansinusitis; Translations: [Acute pansinusitis, unspecified] Onset: 01-11-2024 Resolved: 452895-68-0394StbnhsayKxlgoqsyh by other medications and drugs (20 sources)Poisoning by unspecified drugs, medicaments and biological substances, accidental (unintentional), initial encounter; Translations: [Poisoning by unspecified drug or medicinal substance]Onset: 06-10-2023 12-96-1071PxmgjhdoIhqreuaz codes; unclassified (20 sources)Insomnia; Translations: [Insomnia, unspecified]Onset: 07-29-2022 Resolved: 638621-20-9494MjxlzcmoCyvzywplhet; intervertebral disc disorders; other back problems (7 sources)Muscle spasm of back; Translations: [Cervicalgia]Onset: 09-30-2021 EpisodicSuicide and intentional self-inflicted injury (4 sources)Suicidal ideations; Translations: [SUICIDAL IDEATIONS]Onset: 47-05-3235LvjqoxhdMacgcuy (20 sources)Vasovagal syncope; Translations: [Syncope and collapse]Onset: 230408-00-4882YccxtbweSjkrsriuqzxd (1 source)LOW BACK PAIN, UNSPECIFIED; Translations: [LOW BACK PAIN, UNSPECIFIED] Onset: 78-19-1339Yizig infection (20 sources)Viral infection, unspecified; Translations: [Disease caused by 2019-nCoV]Onset: 180740-12-8213Odermltl Results Test NameValueInterpretationReference RangeFacilityUrate SerPl-mCncon 12-25-2024 Urate [Mass/Vol]mg/dLLow4.0-8.1CUniversity Hospitals TriPoint Medical CenterComment on above:Order Comment: Specimen Type: BLOOD SPECIMENOrdering Facility: [facility] Address:[address] [place] [address] [place], [place] [address]Kjhwzevhp By: #### 3084-1 ####[facility] LABIA [id number] [place], [place] [address]Hsnbp SerPl-mCncon 69-92-6111Cykrs [Mass/Vol]mg/dLLow 4.0-8.1CSelect [facility] on above:Order Comment: Specimen Type: BLOOD SPECIMENOrdering Facility: [facility] Address:[address] [place], [place] [address]Performed By: #### 3084-1 ####[facility] LABCLIA [id number] [place], [place] [address]OXP URATE SERPL-MCNCon 98-54-5345HJN URATE SERPL-MCNC0.6 mg/dLLow4.0 - 8.1 mg/dLNOMS HealthcareInterpretation and review of laboratory resultsAbnormalNOMS HealthcareSpecimen Type: BLOOD SPECIMEN Ordering Facility: [facility] Address: [address] [place] [address] Original Ordering Provider: DELMY GARCIAHancock Regional HospitalF URATE SERPL-MCNC<0.2Low4.0 - 8.1 mg/dLNOMS HealthcareInterpretation and review of laboratory resultsAbnormalNOMS HealthcareSpecimen Type: BLOOD SPECIMEN Ordering Facility: [facility] Address: [address] [place] [address] Original Ordering Provider: DELMY [facility] Hospital of KokomoUrate SerPl-mCncon 31-93-5019Eanvk [Mass/Vol]0.6 mg/dLLow4.0-8.1CSelect [facility] on above:Order Comment: Specimen Type: BLOOD SPECIMENOrdering Facility: [facility] Address:[address] [place], [place] [address]Performed By: #### 3084-1 ####[facility] LABCLIA [id number] [place], [place] [address]Ybwea SerPl-mCncon 11-27-2024 Urate [Mass/Vol]mg/dLLow4.0-8.1ClevelOhio State Health System on above:Order Comment: Specimen Type: BLOOD SPECIMENOrdering Facility: [facility] Address:[address] [place], [place] [address]Performed By: #### 3084-1 ####[facility] LABCLIA [id number] [facility] MEDICAL CENTERCIELO YARBROUGH U34LLIHKFABJNICOLE VIL[place] [id number] [facility] SerPl-cCncon 60-58-5634LET [Catalytic activity/Vol]55 U/OUlff63-14FfgawtszlOhiohealth Grove City Methodist HospitalComment on above:Order Comment: Specimen Type: BLOOD SPECIMENOrdering Facility: [facility] Address:[address] [place] [address]Myxacjuie By: #### 3084-1, 1746, 1750-08, 1919-09 ####[facility] LABCLIA [id number] [place], [place] [address]DFI SerPl-cCncon 90-43-4415MGZ [Catalytic activity/Vol]37 U/JJnzifz84-98BbkhxfycaWilson [address] Hospital on above:Order Comment: Specimen Type: BLOOD SPECIMENOrdering Facility: [facility] Address:[address] [place], [place] [address]Performed By: #### 3084-1, 1746, 1750-08, 1919-09 ####[facility] LABCLIA [id number] [place], [place] [address]Ipdaemi SerPl-mCncon 36-62-5927Pnpmpsq [Mass/Vol]4.5 g/dLNormal3.9-4.9CUniversity Hospitals TriPoint [facility] Center Comment on above:Order Comment: Specimen Type: BLOOD SPECIMENOrdering Facility: [facility] Address:[address] [place], [place] [address] Performed By: #### 3084-1, 1746, 1750-08, 1919-09 ####[facility] LABCLIA [id number] [place], [place] [address]FUX W Auto Differential panel (Bld)on 22-12-0230Iyuycyoym (Bld) [#/Vol]10*3/uLNormal<0.[address] [facility] on above:Order Comment: Specimen Type: BLOOD SPECIMENOrdering Facility: [facility] Address:[address] [place], [place] [address]Performed By: #### 13302-0 ####[facility] LABCLIA [id number] [place], [place] [address]Wectvbvjl/100 WBC (Bld)0.3 %NormalWilson [address] Hospital on above:Order Comment: Specimen Type: BLOOD SPECIMENOrdering Facility: [facility] Address:[address] [place], [place] [address]Performed By: #### 20070-7 ####[facility] LABCLIA [id number] [place], [place] [address]Nyipnhsxwsai cell count method Nom (Bld)AutoNormal [facility] on above:Order Comment: Specimen Type: BLOOD SPECIMENOrdering Facility: [facility] Address:[address] [place], [place] [address]Performed By: #### 42274-1 ####[facility] LABCLIA [id number] [place], [place] [address]Hincynjtaau (Bld) [#/Vol]0.03 10*3/uLNormal<0.46[facility] on above: Order Comment: Specimen Type: BLOOD SPECIMENOrdering Facility: [facility] Address:[address] [place], [place] [address]Performed By: #### 79164- 8 ####[facility] LABCLIA [id number] [place], [place] [address]Ehwdndhoykg/100 WBC (Bld)0.5 %NormalWilson Street Hospital on above:Order Comment: Specimen Type: BLOOD SPECIMENOrdering Facility: [facility] Address:[address] [place], [place] [address]Performed By: #### 44461-3 ####[facility] LABCLIA [id number] [place], [place] [address]Qagkyzmnmyo distribution width (RBC) [Ratio]13.2 %Tberbx17.5-15.0[facility] on above: Order Comment: Specimen Type: BLOOD SPECIMENOrdering Facility: [facility] Address:[address] [place], [place] [address]Performed By: #### 12606- 8 ####[facility] LABCLIA [id number] [place], [place] [address]Icrrcmszxo (Bld) [Volume fraction]40.8 %Vtohye26.0-51.[address] [facility] [address] [facility] on above:Order Comment: Specimen Type: BLOOD SPECIMENOrdering Facility: [facility] Address:[address] [place], [place] [address]Performed By: #### 51712-9 ####[facility] LABCLIA [id number] [place], [place] [address]Mdltyomapr (Bld) [Mass/Vol]14.2 g/wPCsrtha23.0-17.0[facility] on above: Order Comment: Specimen Type: BLOOD SPECIMENOrdering Facility: [facility] Address:[address] [place], [place] [address]Performed By: #### 11118- 8 ####[facility] LABCLIA [id number] [place], [place] [address]Rjafywrp granulocytes (Bld) [#/Vol]10*3/uLNormal<0.[address] [facility] [address] [facility] on above:Order Comment: Specimen Type: BLOOD SPECIMENOrdering Facility: [facility] Address:[address] [place], [place] [address]Performed By: #### 55252-1 ####[facility] LABIA [id number] [place], [place] [address]Ouzckrtw granulocytes/100 WBC (Bld)0.3 %NormalWilson Street Hospital on above: Order Comment: Specimen Type: BLOOD SPECIMENOrdering Facility: [facility] Address:[address] [place], [place] [address]Performed By: #### 28600- 8 ####[facility] LABCLIA [id number] [place], [place] [address]Hvbpgggbzrn (Bld) [#/Vol]2.44 10*3/uLNormal1.00-4.[address] [facility] [address] [facility] on above:Order Comment: Specimen Type: BLOOD SPECIMENOrdering Facility: [facility] Address:[address] [place], [place] [address]Performed By: #### 20604-8 ####[facility] LABCLIA [id number] [place], [place] [address]Eiirpaskctc/100 WBC (Bld)36.7 %NormalWilson Street Hospital on above:Order Comment: Specimen Type: BLOOD SPECIMENOrdering Facility: [facility] Address:[address] [place], [place] [address]Performed By: #### 90503-7 ####[facility] LABCLIA [id number] [place], [place] [address]AUA (RBC) [Entitic mass]30.[address]ns60[address]0-34[address]0[facility] on above:Order Comment: Specimen Type: BLOOD SPECIMENOrdering Facility: [facility] Address:[address] [place], [place] [address]Performed By: #### 57142-1 ####[facility] LABCLIA [id number] [place], [place] [address]NYPA (RBC) [Mass/Vol]34.8 g/mOVvemjt11.5-36.0[facility] on above: Order Comment: Specimen Type: BLOOD SPECIMENOrdering Facility: [facility] Address:[address] [place], [place] [address]Performed By: #### 91551- 8 ####[facility] LABCLIA [id number] [place], [place] [address]WBC (RBC) [Entitic vol]86.[address] on above:Order Comment: Specimen Type: BLOOD SPECIMENOrdering Facility: [facility] Address:[address] [place], [place] [address]Performed By: #### 34739-1 ####[facility] LABCLIA [id number] [place], [place] [address]Teyxuiwuh (Bld) [#/Vol]0.42 10*3/uLNormal<0.87[facility] on above:Order Comment: Specimen Type: BLOOD SPECIMENOrdering Facility: [facility] Address:[address] [place], [place] [address]Performed By: #### 72913- 8 ####[facility] LABCLIA [id number] [place], [place] [address]Qdgfowbrg/100 WBC (Bld)6.3 %NormalWilson [address] Hospital on above:Order Comment: Specimen Type: BLOOD SPECIMENOrdering Facility: [facility] Address:[address] [place], [place] [address]Performed By: #### 18260-0 ####[facility] LABCLIA [id number] [place], [place] [address]Vsgutkrjvhm (Bld) [#/Vol]3.71 10*3/uLNormal1.45-7.50[facility] on above:Order Comment: Specimen Type: BLOOD SPECIMENOrdering Facility: [facility] Address:[address] [place], [place] [address]Performed By: #### 81421-2 ####[facility] LABCLIA [id number] [place], [place] [address]Abrqjabniwv/100 WBC (Bld)55.9 %NormalWilson [address] Hospital on above:Order Comment: Specimen Type: BLOOD SPECIMENOrdering Facility: [facility] Address:[address] [place], [place] [address]Performed By: #### 80827-6 ####[facility] LABCLIA [id number] [place], [place] [address]Autdmskvx RBC (Bld) [#/Vol] 10*3/uLNormal<0.01[facility] on above:Order Comment: Specimen Type: BLOOD SPECIMENOrdering Facility: [facility] Address:[address] [place], [place] [address]Performed By: #### 88181-6 ####[facility] LABCLIA [id number] [place], [place] [address]Wnsabyuoy RBC/100 WBC (Bld) [Ratio]0.0 /[address] [facility] on above:Order Comment: Specimen Type: BLOOD SPECIMENOrdering Facility: [facility] Address:[address] [place], [place] [address]Performed By: #### 34090-0 ####[facility] LABCLIA [id number] [place], [place] [address]Havqyaho mean volume (Bld) [Entitic vol]10.5 fLNormal9.0-12.7CSelect [facility] on above:Order Comment: Specimen Type: BLOOD SPECIMENOrdering Facility: [facility] Address:[address] [place] [address] Performed By: #### 87939-9 ####[facility] LABCLIA [id number] [place], [place] [address]Zladbofuw (Bld) [#/Vol]318 10*3/qRVoenyp405-611QbjhjnklyWilson Street Hospital on above:Order Comment: Specimen Type: BLOOD SPECIMENOrdering Facility: [facility] Address:[address] [place], [place] [address]Performed By: #### 29627-5 ####[facility] LABCLIA [id number] [place], [place] [address]ZQT (Bld) [#/Vol]4.70 10*6/uLNormal4.20-6.00[facility] on above:Order Comment: Specimen Type: BLOOD SPECIMENOrdering Facility: [facility] Address:[address] [place], [place] [address]Performed By: #### 17492-0 ####[facility] LABCLIA [id number] [place], [place] [address]PYU (Bld) [#/Vol]6.64 10*3/uLNormal3.70-11.00[facility] on above: Order Comment: Specimen Type: BLOOD SPECIMENOrdering Facility: [facility] Address:[address] [place], [place] [address]Performed By: #### 44180- 8 ####[facility] LABCLIA [id number] [place], [place] [address]XKJ CBC W AUTO DIFF BLDon 26-38-2785Pxtyvqofm/100 WBC (Bld)0.3 %[facility] HealthcareCCF BASOPHILS # BLD AUTO<0.03NINFDeaconess Incarnate Word Health System DIFFERENTIAL METHOD BLDAutoNOMParkland Health CenterF EOSINOPHIL # BLD AUTO0.03NILaFollette Medical Center LYMPHOCYTES # BLD AUTO2.44NOSt. Louis Children's HospitalF MONOCYTES # BLD AUTO 0.42NIThompson Cancer Survival Center, [place], operated by [facility]oven[facility] HealthF NEUTROPHILS # BLD AUTO3.71NOSt. Louis Children's HospitalF NRBC # BLD AUTO<0.01NILaFollette Medical Center NRBC/100 WBC BLD-RTO0/100 WBCNOCitizens Memorial Healthcare CCF PLATELET # BLD [id number] County Memorial Hospital PMV BLD AUTO10.5 fL9.0 - 12.7 fL [facility] HealthcareCCF WBC # BLD AUTO6.64NOCitizens Memorial HealthcareEosinophils/100 WBC (Bld)0.5 %NOMS HealthcareErythrocyte distribution width (RBC) [Ratio]13.2 %11.5 - 15.0 % NOMS HealthcareHematocrit (Bld) [Volume fraction]40.8 %39.0 - 51.0 %NOMS HealthcareHemoglobin (Bld) [Mass/Vol]14.2 g/dL13.0 - 17.0 g/dLMissouri Southern Healthcare GRANULOCYTES # BLD AUTO<0.03NINFMissouri Southern Healthcare GRANULOCYTES/LEUK NFR BLD AUTO0.3 %[facility] Medical CenterLymphocytes/100 WBC (Bld)36.7 %[facility] Institute [facility] St. LouisH (RBC) [Entitic mass]30.2 pg26.0 - 34.[address] pgThe Rehabilitation Institute [address] LouisHC (RBC) [Mass/Vol]34.8 g/dL 30.5 - 36.0 g/dLThe Rehabilitation Institute of St. LouisV (RBC) [Entitic vol]86.8 fL80.0 - 100.0 fLNortheast Regional Medical CenterMonocytes/100 WBC (Bld)6.3 %[facility] Medical CenterNeutrophils/100 WBC (Bld) 55.9 %[facility] Medical CenterRBC (Bld) [#/Vol]4.7 10*6/uL4.20 - 6.00 m/uLNortheast Regional Medical Center Specimen Type: BLOOD SPECIMEN Ordering Facility: [facility] Address: [address] [place] [address] Original Ordering Provider: DELMY GUTHRIEFormerly [facility] [id number] (HEMTSA) NICK WRAY ([id number]) 1990 M Date Time Provider Department 11/13/24 LESIA COVARRUBIAS HEMTSA During your visit today, we recorded the following information about you: Lesia Covarrubias RN 11/13/2024 4:25 PM Signed Nick is scheduled for his Krystexxa tomorrow 11/14/24 in our [facility]. His uric acid today was 9.5. Do [...] *01/18/2018 Encounter Status:Closed by DELMY BOYLE on 11/13/24[facility]NPNTele[facility] (RHEUAV) NICK WRAY ([id number]) 1990 M Date Time Provider Department 11/13/24 DELMY BOYLE RHEUAV During your visit today, we recorded the [...] *01/18/2018 Encounter Status:Closed by DELMY BOYLE on 11/13/24[facility] [id number] [Mass/Vol]mg/LNormal<0.9CUniversity Hospitals TriPoint [facility] CenterComsouthwest regional rehabilitation center on above:Order Comment: Specimen Type: BLOOD SPECIMENOrdering Facility: [facility] Address:[id number] [address] [place], [place] [address]Performed By: #### 1988-5 ####[facility] LABCLIA [id number] [place] [address] [place] Creatinine and Glomerular filtration rate.predicted panel (S/P/Bld)on 11-13-2024 Creatinine [Mass/Vol]1.29 mg/dLHigh0.73-1.22[facility] on above:Order Comment: Specimen Type: BLOOD SPECIMENOrdering Facility: [facility] Address:[address] [place], [place] [address]Performed By: #### 72844-9 ####[facility] LABCLIA [id number] [place], [place] [address]yQMDzm SerPlBld CKD-EPI 266360 mL/min/1.73m???Normal >=60[facility] on above:Order Comment: Specimen Type: BLOOD SPECIMENOrdering Facility: [facility] Address:[address] [place], [place] [address]Result Comment: Estimated Glomerular Filtration Rate (eGFR) is calculated using the 2020 CKD-EPI creatinine equation. This equation utilizes serum creatinine, sex, and age as parameters. The creatinine assay has traceable calibration to isotope dilution-mass spectrometry. Refer to KDIGO guidelines for clinical interpretation. In patients with unstable renal function, e.g. those with acute kidney injury, the eGFR may not accurately reflect actual GFR.Performed By: #### 13824-7 ####[facility] LABCLIA [id number] [place], [place] [address]MDH Westergren method (Bld) [Velocity]on [id number] (Bld) [Velocity]2 mm/hNormal [facility] on above:Order Comment: Specimen Type: BLOOD SPECIMENOrdering Facility: [facility] Address:[address] [place], [place] [address]Performed By: #### 4537-7 ####[facility] LABCLIA [id number] [place] [id number] [place] AMERICAUrate SerPl-mCncon 84-05-1767Umlqg [Mass/Vol]9.5 mg/dLHigh4.0-8.[address] [facility] on above:Order Comment: Specimen Type: BLOOD SPECIMENOrdering Facility: [facility] Address:[address], [place] [address]Aywovcudj By: #### 3084-1, 1742-6, 1751-7, 1920-8 ####[facility] LABCLIA [id number] [place], [place] [address]EEPIwd [id number] (HEMTSA) NANINICK Keena ([id number]) 1990 M Date Time Provider Department 11/08/24 LESIA COVARRUBIAS During your visit today, we recorded the following information about you: Lesia Covarrubias RN 11/08/2024 9:18 AM Signed Nick is scheduled to receive his Krystexxa infusion in our [facility] on 11/17. Can you please sign the [...] *01/18/2018 Encounter Status:Closed by LESIA COVARRUBIAS on 11/13/24NormalCFayette County Memorial Hospital HGB BLD-MCNCon [id number] (Bld) [Mass/Vol]14.9 g/dL13.0 - 17.0 g/dLNortheast Regional Medical CenterSpecimen Type: BLOOD SPECIMEN Ordering Facility: [facility] Address: [address] [place] [address] Original Ordering Provider: DELMY BEANParkland Health CenterG-6-PD QUANTITATIVEon 01-12-7846X3KH (RBC) [Catalytic activity/Mass]13.0 U/g HbNormal 9.8-15.5CUniversity Hospitals TriPoint Medical CenterComment on above:Order Comment: Specimen Type: BLOOD SPECIMENOrdering Facility: [facility] Address:[address] [place], [place] [address]Result Comment: This test was developed, and its performance characteristics determined by the [facility] Department of Pathology and Laboratory Medicine. It has not been cleared or approved bythe FDA. The [facility] Department of Pathology and Laboratory Medicine is regulated under CLIA as qualified to perform high-complexity testing. This test is used for clinical purposes. It should not be regarded as investigational or for research.Performed By: #### 718-7, QTG6PD ####[facility] LABCLIA [id number] [facility] [id number] [place] [address] STATES OF AMERICAHgb Bld-mCncon 15-26-5953Yfpwtdrvei (Bld) [Mass/Vol]14.9 g/dLNormal 13.0-17.0[facility] Methodist HospitalComment on above:Order Comment: Specimen Type: BLOOD SPECIMENOrdering Facility: [facility] Address:[address] [place], [place] [address]Performed By: #### 718-7 ####[facility] LABCLIA [id number] [place] [address] Hemoglobin (Bld) [Mass/Vol]15.1 g/wJTrzodz62.0-17.0[facility] Comment on above:Order Comment: Specimen Type: BLOOD SPECIMENOrdering Facility: External Submitter Address: , ,Performed By: #### 718-7, QTG6PD ####[facility] LABCLIA [id number] [address] STATES OF AMERICACNPNon [id number] (PHAH) NICK WRAY ([id number]) 1990 M Date Time Provider Department 10/06/24 DELMY BOYLE [facility] During your visit today, we recorded the following information about you: John Paul Chavez 10/06/2024 5:36 AM Signed Delmy Boyle MD [...] route encounter back to me for actioning. thx. Caren Vogt LPN 10/09/2024 9:36 AM Signed Spoke with Nick. He would like to proceed with infusions if insurance approves. Closest infusion center is [place], I believe. Routed to [facility] for order specifications needed for Krystexxa. Ranjana Garner 10/10/2024 8:52 AM Signed Patient has been scheduled and notified. Thanks! Pham Sharp 10/11/2024 4:32 PM Signed Guillermo Omar Marie, Just following up--is there any update regarding the bnes-ln-kdlx or appeal for the Krystexxa denial? Since [...] to schedule soonest date/time that is available. Caren Vogt LPN 10/12/2024 3:42 PM Signed Called [...] any information you would like forwarded to [facility] prior to peer to peer. Lamont Brink 10/17/2024 11:04 PM Signed Good evening. is there any update regarding the fvuk-gx-rmdn for the Krystexxa denial? Thanks -Caren Serrano LPN 10/18/2024 10:48 AM Signed Called [facility] reviewed P2P request, spoke with Tanya. [facility] is not covering insurance for infusion. Transferred to [facility], spoke with Mendez, who was able to review P2P request. Pharmacy to contact Dr. Boyle on work cell today for P2P. Time on encounter 56minutes. Caren Vogt LPN 10/18/2024 10:[address] Boyle contacted by [facility]. Krystexxa approved. Nick updated. Pharmacy auth team updated. Allergies As of Date: 10/06/2024 (Not on File) Date Reviewed: 10/03/2024 Reviewed by: Caren Vogt LPN - Fully Assessed Reason for Visit: Insurance Authorization [[id number]] Cmt: Preferred Drug wP2P: NICK WRAY JUDITH D Prescriptions as of 10/18/2024 - folic acid [...] multiple sites with *01/18/2018 Encounter Status:Closed by SATINDERJOHN PAUL HOFF on 10/06/24[facility] CenterHannah [id number] Visit (ANA) NICK WRAY ([id number]) 1990 M Date Time Provider Department 10/03/24 [...] arthritic flares once every 4 months. Saw senior statistical programmer Dr. Jaime in [place] who did diagnostic knee aspiration which according to patient was positive for uric acid crystals. Treated with steroids and continued allopurinol. He has not seen Dr. Jaime since 2014. In 2014, he was hospitalized in [place] for acute polyarthritis. Saw senior statistical programmer while in hospital who told him that he possibly had RA. Discharged on steroids. His PCP switched him from allopurinol to Uloric Jan 2017. He also takes colchicine prn. No reduction in frequency or severity of his joint flares with Uloric. In 2017, he has been hospitalized 7-8 times for acute joint flares. Each time he is treated with steroids. Hospitalized at [facility] Apr 2017 for acute flare of inflammatory [...] shoulder surgery by Dr. Tc Coffey at [facility]. No p (more content not included)...NormalOhiohealth Grove City Methodist HospitalCNPNon [id number] Telephone (ANA) NICK WRAY ([id number]) 1990 M Date Time Provider Department 10/03/24 DELMY BOYLE During your visit today, we recorded the following information about you: Caren Vogt LPN 10/03/2024 9:00 AM Signed Urgent prior authorization request and today's office notes faxed to [facility]. Febuxostat/Uloric Camilla Holt LPN 10/03/2024 4:10 PM Signed Patient has been identified by name and date of : Yes, Provider Matthew Date today Time now - [facility] Febuxostat 40 mg tablet Approved 10/03/24 -0 10/02/2025 Type of form: Prior Authorization Form received via: Fax Form has been forwarded to: Sent to scanning Camilla Holt LPN Allergies As of Date: 10/03/2024 (Not on File) Date Reviewed: 10/03/2024 Reviewed by: Caren Vogt LPN - Fully Assessed Reason for Visit: Insurance Authorization [[id number]] Cmt: Febuxostat Prescriptions as of 10/03/2024 - [...] *01/18/2018 Encounter Status:Closed by CAREN VOGT on 10/03/24NoMercy Health SerPl-cCncon 12-57-6276XJT [Catalytic activity/Vol]22 U/LNormal 10-54[facility] on above:Order Comment: Specimen Type: BLOOD SPECIMENOrdering Facility: [facility] Address:[address] [place] [address]Dyxwmkdpg By: #### 3084-1, 0412-8, 5602-6, 0141-7 ####[facility] LABCLIA [id number] [place], [place] [address]ADA SerPl-cCncon [id number] [Catalytic activity/Vol]21 U/UNpgweq82-63SovujiotmWilson [address] [facility] on above:Order Comment: Specimen Type: BLOOD SPECIMENOrdering Facility: [facility] Address:[address] [place], [place] [address]Performed By: #### 3084-1, 1919-09, 1741-07, 1750-08 ####[facility] LABCLIA [id number] [place], [place] [address]Cwbgatu SerPl-mCncon 19-13-8479Lkgavce [Mass/Vol]4.5 g/dL Normal3.9-4.9C[facility] on above:Order Comment: Specimen Type: BLOOD SPECIMENOrdering Facility: [facility] Address:[address] [place], [place] [address]Performed By: #### 3084-1, 1919-09, 1741-07, 1750-08 ####[facility] LABCLIA [id number] [place], [place] [address]GON W Auto Differential panel (Bld)on 86-85-7643Geongnpuc (Bld) [#/Vol]0.03 10*3/uLNormal<0.11C[facility] on above: Order Comment: Specimen Type: BLOOD SPECIMENOrdering Facility: [facility] Address:[address] [place], [place] [address]Performed By: #### 89067- 8 ####[facility] LABCLIA [id number] [place], [place] [address]Wnirypnih/100 WBC (Bld)0.4 %[address] [facility] on above:Order Comment: Specimen Type: BLOOD SPECIMENOrdering Facility: [facility] Address:[address] [place], [place] [address]Performed By: #### 27534-9 ####[facility] LABCLIA [id number] [place], [place] [address]Frodyqevwvew cell count method Nom (Bld)AutoNormalCSelect Medical [facility] on above:Order Comment: Specimen Type: BLOOD SPECIMENOrdering Facility: [facility] Address:[address] [place], [place] [address]Performed By: #### 14094-7 ####[facility] LABCLIA [id number] [place], [place] [address]Pnchixxberw (Bld) [#/Vol]10*3/uLNormal<0.46[facility] on above:Order Comment: Specimen Type: BLOOD SPECIMENOrdering Facility: [facility] Address:[address] [place], [place] [address]Performed By: #### 35280-4 ####[facility] LABCLIA [id number] [place], [place] [address]Zxwtwtjhxrb/100 WBC (Bld)0.3 %NormalWilson [address] [facility] on above:Order Comment: Specimen Type: BLOOD SPECIMENOrdering Facility: [facility] Address:[address] [place], [place] [address]Performed By: #### 58333-0 ####[facility] LABCLIA [id number] [place], [place] [address]Jlkmlihtlvy distribution width (RBC) [Ratio]14.0 %Normal 11.5-15.0[facility] on above:Order Comment: Specimen Type: BLOOD SPECIMENOrdering Facility: [facility] Address:[address] [place], [place] [address]Performed By: #### 71636-1 ####[facility] LABCLIA [id number] [place] [address] Hematocrit (Bld) [Volume fraction]42.0 %Xqitoj99.0-51.0[facility] on above:Order Comment: Specimen Type: BLOOD SPECIMENOrdering Facility: [facility] Address:[address] [place], [place] [address]Performed By: #### 59694-8 ####[facility] LABIA [id number] [place], [place] [address]Thohuzedvr (Bld) [Mass/Vol]14.6 g/vYLkzzks01.0-17.0[facility] on above:Order Comment: Specimen Type: BLOOD SPECIMENOrdering Facility: [facility] Address:[address] [place], [place] [address]Performed By: #### 75094-3 ####[facility] LABCLIA [id number] [place], [place] [address]Fotspteo granulocytes (Bld) [#/Vol]0.04 10*3/uLNormal <0.10[facility] on above:Order Comment: Specimen Type: BLOOD SPECIMENOrdering Facility: [facility] Address:[address] [place], [place] [address]Performed By: #### 22561-9 ####[facility] LABCLIA [id number] [place], [place] [address]Bqsekkdf granulocytes/100 WBC (Bld)0.5 %Normal[address] [facility] on above: Order Comment: Specimen Type: BLOOD SPECIMENOrdering Facility: [facility] Address:[address] [place], [place] [address]Performed By: #### 94448- 8 ####[facility] LABCLIA [id number] [place], [place] [address]Loiavlljcny (Bld) [#/Vol]3.51 10*3/uLNormal1.00-4.[address] [facility] on above:Order Comment: Specimen Type: BLOOD SPECIMENOrdering Facility: [facility] Address:[address] [place], [place] [address]Performed By: #### 71934-1 ####[facility] LABIA [id number] [place], [place] [address]Jkgusleiisi/100 WBC (Bld)45.8 %NormalWilson [address] [facility] on above:Order Comment: Specimen Type: BLOOD SPECIMENOrdering Facility: [facility] Address:[address] [place], [place] [address]Performed By: #### 59145-2 ####[facility] LABCLIA [id number] [place], [place] [address]XNY (RBC) [Entitic mass]30.[address]aa91.0-34.0[facility] on above:Order Comment: Specimen Type: BLOOD SPECIMENOrdering Facility: [facility] Address:[address] [place], [place] [address]Performed By: #### 60159-5 ####[facility] LABCLIA [id number] [place], [place] [address]ILKJ (RBC) [Mass/Vol]34.8 g/uCJvgnux96.5-36.0[facility] on above: Order Comment: Specimen Type: BLOOD SPECIMENOrdering Facility: [facility] Address:[address] [place], [place] [address]Performed By: #### 48970- 8 ####[facility] LABCLIA [id number] [place], [place] [address]YVM (RBC) [Entitic vol]87.[address]0-100[address]0[facility] on above:Order Comment: Specimen Type: BLOOD SPECIMENOrdering Facility: [facility] Address:[address] [place], [place] [address]Performed By: #### 38163-8 ####[facility] LABCLIA [id number] [place], [place] [address]Twfgsduzf (Bld) [#/Vol]0.48 10*3/uLNormal<0.87[facility] on above:Order Comment: Specimen Type: BLOOD SPECIMENOrdering Facility: [facility] Address:[address] [place], [place] [address]Performed By: #### 39118- 8 ####[facility] LABCLIA [id number] [place], [place] [address]Miywsihcz/100 WBC (Bld)6.3 %NormalWilson [address] [facility] on above:Order Comment: Specimen Type: BLOOD SPECIMENOrdering Facility: [facility] Address:[address] [place], [place] [address]Performed By: #### 60477-1 ####[facility] LABCLIA [id number] [place], [place] [address]Oksjatprqht (Bld) [#/Vol]3.58 10*3/uLNormal1.45-7.50[facility] on above:Order Comment: Specimen Type: BLOOD SPECIMENOrdering Facility: [facility] Address:[address] [place], [place] [address]Performed By: #### 78619-5 ####[facility] LABCLIA [id number] [place], [place] [address]Qavjvemypho/100 WBC (Bld)46.7 %NormalWilson [address] [facility] on above:Order Comment: Specimen Type: BLOOD SPECIMENOrdering Facility: [facility] Address:[address] [place], [place] [address]Performed By: #### 55455-0 ####[facility] LABCLIA [id number] [place], [place] [address]Sgkdombhz RBC (Bld) [#/Vol] 10*3/uLNormal<0.01[facility] on above:Order Comment: Specimen Type: BLOOD SPECIMENOrdering Facility: [facility] Address:[address] [place], [place] [address]Performed By: #### 27353-8 ####[facility] LABCLIA [id number] [place], [place] [address]Ihslxyfzq RBC/100 WBC (Bld) [Ratio]0.0 /[address] [facility] on above:Order Comment: Specimen Type: BLOOD SPECIMENOrdering Facility: [facility] Address:[address] [place], [place] [address]Performed By: #### 31174-5 ####[facility] LABCLIA [id number] [place], [place] [address]Ivspypkv mean volume (Bld) [Entitic vol]9.7 fLNormal9.0-12.7C[facility] on above:Order Comment: Specimen Type: BLOOD SPECIMENOrdering Facility: [facility] Address:[address] [place] [address] Performed By: #### 82170-6 ####[facility] LABCLIA [id number] [place], [place] [address]Elfgrjjjf (Bld) [#/Vol]215 10*3/bUEmuatt831-378PogzuxxvlWilson [address] [facility] on above:Order Comment: Specimen Type: BLOOD SPECIMENOrdering Facility: [facility] Address:[address] [place], [place] [address]Performed By: #### 74020-4 ####[facility] LABCLIA [id number] [place], [place] [address]NPL (Bld) [#/Vol]4.79 10*6/uLNormal4.20-6.00[facility] on above:Order Comment: Specimen Type: BLOOD SPECIMENOrdering Facility: [facility] Address:[address] [place], [place] [address]Performed By: #### 53422-3 ####[facility] LABCLIA [id number] [place], [place] [address]UYT (Bld) [#/Vol]7.66 10*3/uLNormal3.70-11.00[facility] on above: Order Comment: Specimen Type: BLOOD SPECIMENOrdering Facility: [facility] Address:[address] [place], [place] [address]Performed By: #### 04006- 8 ####[facility] LABCLIA [id number] [place], [place] [address]FPC CBC W AUTO DIFF BLDon 82-02-3108Bjrmvydoq/100 WBC (Bld)0.4 %[facility] BASOPHILS # BLD AUTO0.03NILaFollette Medical Center DIFFERENTIAL METHOD BLDAutoNOMLakeland Regional Hospital EOSINOPHIL # BLD AUTO<0.03NILaFollette Medical Center LYMPHOCYTES # BLD AUTO3.51NOSt. Louis Children's HospitalF MONOCYTES # BLD AUTO 0.48NIThompson Cancer Survival Center, [place], operated by Covenant HealthF NEUTROPHILS # BLD AUTO3.58NOScotland County Memorial Hospital NRBC # BLD AUTO<0.01NINFDeaconess Incarnate Word Health System NRBC/100 WBC BLD-RTO0/100 WBCNortheast Regional Medical Center CCF PLATELET # BLD ZALK960BXAHDeaconess Incarnate Word Health System PMV BLD AUTO9.7 fL9.0 - 12.7 fLDeaconess Incarnate Word Health System WBC # BLD AUTO7.66NOCitizens Memorial HealthcareEosinophils/100 WBC (Bld)0.3 % [facility] Medical CenterErythrocyte distribution width (RBC) [Ratio]14 %11.5 - 15.0 %[facility] Medical CenterHematocrit (Bld) [Volume fraction]42 %39.0 - 51.0 %[facility] Hemoglobin (Bld) [Mass/Vol]14.6 g/dL13.0 - 17.0 g/dLMissouri Southern Healthcare GRANULOCYTES # BLD AUTO0.04NIBaptist Memorial Hospital GRANULOCYTES/LEUK NFR BLD AUTO 0.5 %[facility] Medical CenterLymphocytes/100 WBC (Bld)45.8 %[facility] Rehabilitation Institute of St. LouisH (RBC) [Entitic mass]30.5 pg26.0 - 34.0 pgThe Rehabilitation Institute of St. LouisHC (RBC) [Mass/Vol]34.8 g/dL 30.5 - 36.0 g/dLThe Rehabilitation Institute of St. LouisV (RBC) [Entitic vol]87.7 fL80.0 - 100.0 fLNortheast Regional Medical CenterMonocytes/100 WBC (Bld)6.3 %[facility] Medical CenterNeutrophils/100 WBC (Bld) 46.7 %[facility] Medical CenterRBC (Bld) [#/Vol]4.79 10*6/uL4.20 - 6.00 m/uLNortheast Regional Medical CenterSpecimen Type: BLOOD SPECIMEN Ordering Facility: [facility] Address: [address] [place] [address] Original Ordering Provider: DELMY LARIOSResearch Psychiatric Center Danuta 35-65-4425BTO [Mass/Vol]mg/LNormal<0.9CUniversity [facility]als [facility] Comment on above:Order Comment: Specimen Type: BLOOD SPECIMENOrdering Facility: [facility] Address:[address] [place] [address] Performed By: #### 1988-5 ####[facility] LABCLIA [id number] [place] [address] [place] Creatinine and Glomerular filtration rate.predicted panel (S/P/Bld)on 10-02-2024 Creatinine [Mass/Vol]1.28 mg/dLHigh0.73-1.22[facility] Methodist HospitalComment on above:Order Comment: Specimen Type: BLOOD SPECIMENOrdering Facility: [facility] Address:[address] [place], [place] [address]Performed By: #### 41552-5 ####[facility] LABCLIA [id number] [place], [place] [address]eWHShf SerPlBld CKD-EPI 847675 mL/min/1.73m???Normal >=60[facility] Methodist HospitalComment on above:Order Comment: Specimen Type: BLOOD SPECIMENOrdering Facility: [facility] Address:[address] [place], [place] [address]Result Comment: Estimated Glomerular Filtration Rate (eGFR) is calculated using the 2020 CKD-EPI creatinine equation. This equation utilizes serum creatinine, sex, and age as parameters. The creatinine assay has traceable calibration to isotope dilution-mass spectrometry. Refer to KDIGO guidelines for clinical interpretation. In patients with unstable renal function, e.g. those with acute kidney injury, the eGFR may not accurately reflect actual GFR.Performed By: #### 27575-4 ####[facility] LABCLIA [id number] [place], [place] [address]CRY Westergren method (Bld) [Velocity]on 48-71-7924TIX (Bld) [Velocity]2 mm/hNormal0-[address] [facility] on above:Order Comment: Specimen Type: BLOOD SPECIMENOrdering Facility: [facility] Address:[address] [place], [place] [address]Performed By: #### 4537-7 ####[facility] LABCLIA [id number] [place] [id number] [place] OF AMERICAUrate SerPl-mCncon 60-92-8940Jdjge [Mass/Vol]12.9 mg/dLHigh4.0-8.[address] [facility] [address] [facility] on above:Order Comment: Specimen Type: BLOOD SPECIMENOrdering Facility: [facility] Address:[address] [place], [place] [address]Performed By: #### 3084-1, 1920-8, 1742-6, 1751-7 ####[facility] LABCLIA [id number] [place], [place] [address]TPC CBC WITH AUTO DIFFon 65-23-9352EHLJZWAXI ABSOLUTE KGZD7YVDO HealthcareBasophils/100 WBC (Bld)0.2 %0.2 - 2.0 %[facility] Eosinophils/100 WBC (Bld)0.5 %Low0.9 - 7.0 %[facility]S HealthcareErythrocyte distribution width (RBC) [Ratio]13 %11.0 - 15.0 %[facility] HealthcareHematocrit (Bld) [Volume fraction]40.4 %Low42.0 - 54.0 %[facility] HealthcareHemoglobin (Bld) [Mass/Vol]13.6 g/dLLow14.0 - 18.0 g/dLNOMS HealthcareIMMATURE GRANULOCYTES ABS AUTO0.02NOMS HealthcareImmature granulocytes/100 WBC (Bld)0.2 %0.0 - 0.5 %[facility] HealthcareInterpretation and review of laboratory resultsAbnormalNOMS Healthcare LYMPHOCYTES ABSOLUTE AUTO3.1N[facility] HealthcareLymphocytes/100 WBC (Bld)37.1 %20.5 - 60.0 %[facility] HealthcareMCH (RBC) [Entitic mass]29.4 pg25.9 - 34.0 pgNOWright Memorial HospitalHC (RBC) [Mass/Vol]33.7 g/dL29.9 - 35.2 g/dLNOCitizens Memorial HealthcareMCV (RBC) [Entitic vol]87.4 fL80.0 - 94.0 fLNOMS HealthcareMONOCYTES ABSOLUTE AUTO0.8NOM[facility] HealthcareMonocytes/100 WBC (Bld)9.6 %1.7 - 12.0 %NOMS HealthcareNEUTROPHILS ABSOLUTE AUTO4.4NOMS HealthcareNeutrophils/100 WBC (Bld)52.4 %43.0 - 75.0 %NOMS HealthcarePlatelet mean volume (Bld) [Entitic vol]10.5 fL9.5 - 13.5 fLNOMS HealthcareTBH EO #0NOMS HealthcareTBH [id number] HealthcareTBH RBC4.62LowNOMS HealthcareTBH WBC8.4NOMS HealthcareCLINISYNCNOMS HealthcareCNOVon [id number] Office Visit (ANA) NANIKAMN Keena ([id number]) 1990 M Date Time Provider Department 01/04/24 8:20 AM DELMY BOYLE [facility] During your visit today, we recorded the [...] arthritic flares once every 4 months. [address] senior statistical programmer Dr. Jaime in [place] who did diagnostic knee aspiration which according to patient was positive for uric acid crystals. Treated with steroids and continued allopurinol. He has not seen Dr. Jaime since 2014. In 2014, he was hospitalized in [place] for acute polyarthritis. Saw senior statistical programmer while in hospital who told him that he possibly had RA. Discharged on steroids. His PCP switched him from allopurinol to Uloric Jan 2017. He also takes colchicine prn. No reduction in frequency or severity of his joint flares with Uloric. In 2017, he has been hospitalized 7-8 times for acute joint flares. Each time he is treated with steroids. Hospitalized at [facility] Apr 2017 for acute flare of inflammatory [...] shoulder surgery by Dr. Tc Coffey at [facility]. No post op complications. Was in PT [...] of gout 06/2023. He was seen in [facility] for gout flare. Given steroid injection [...] Coughing up blood Nega (more content not included)...NormalOhiohealth Grove City Methodist HospitalCNPNon [id number] (ANA) NICK WRAY ([id number]) 1990 M Date Time Provider Department 01/04/24 DELMY BOYLE During your visit today, we recorded the following information about you: Camilla Holt LPN 01/04/2024 1:23 PM Signed Nick Wray (Munoz: [id number]) [place] Rx #: [id number] Need Help? Call us at Outcome Denied [...] of therapy with generic Lidocaine patch. [facility] Policy for Medical Necessity as posted on the [facility] website and [facility] Preferred Drug List criteria were reviewed [...] through the community. Drug ZTlido 1.8% patches [facility] cloud logo Form [place] Medicaid [facility] [employer] Electronic [place] Form (2016 NCPDP) Original Claim [...] hours. Encounter Status:Closed by CAMILLA HOLT on 01/04/24NormalCSouthern [place] Medical Center Panel Informationon [id number] ClinicRadiology Study observation (narrative)[facility] [place] [facility] CenterRadiology Study observation (narrative) [facility] Panel InformationOrdered By: Ccf Provider on 01-04-2024 [facility] [place] [facility] CenterXR FOOT 3V AP/LAT/OBL BILon 01-04-2024* * *Final Report* * * DATE [...] progressed from 05/04/2017 Mild right foot osteoarthritis. Catering Sous Chef: ADELA Transcribe Date/Time: Jan 04 2024 10:13A Dictated by : UMA ROGERS MD This examination was interpreted and the report reviewed and electronically signed by: CHELSEA REEVES MD on Jan 04 2024 3:12PM EST [id number]^AGFA_IDC^SI^ACNCCFRadiology, Radiologist, - 01/04/2024 * * *Final Report* [...] progressed from 05/04/2017 Mild right foot osteoarthritis. Catering Sous Chef: ADELA Transcribe Date/Time: Jan 04 2024 10:13A Dictated by : UMA ROGERS MD This examination was interpreted and the report reviewed and electronically signed by: CHELSEA REEVES MD on Jan 04 2024 3:12PM EST [id number]^AGFA_IDC^SI^ACN NOMS HealthcareXR FOOT 3V AP/LAT/OBL RAMIRO* * *Final Report* [...] progressed from 05/04/2017 Mild right foot osteoarthritis. Catering Sous Chef: ADELA Transcribe Date/Time: Jan 04 2024 10:13A Dictated by : UMA ROGERS MD This examination was interpreted and the report reviewed and electronically signed by: CHELSEA REEVES MD on Jan 04 2024 3:12PM EST [id number]_IDCSIACNNSturgis HospitalXR Foot - bilateral AP and Lateral and [...] or dislocation. Mild pes planus. [facility]IOLOGYProvider, [facility] - 01/04/2024 * * *Final Report* * [...] progressed from 05/04/2017 Mild right foot osteoarthritis. Catering Sous Chef: ADELA Transcribe Date/Time: Jan 04 2024 10:13A Dictated by : UMA ROGERS MD This examination was interpreted and the report reviewed and electronically signed by: CHELSEA REEVES MD on Jan 04 2024 3:12PM EST [facility] CenterXR KNEE 4V AP/PA/LAT/MERCH BILon 01-04-2024* * *Final Report* * * DATE [...] similar to 05/04/2017. Mild right knee osteoarthritis. Catering Sous Chef: ADELA Transcribe Date/Time: Jan 04 2024 12:48P Dictated by : CHELSEA REEVES MD This examination was interpreted and the report reviewed and electronically signed by: CHELSEA REEVES MD on Jan 04 2024 1:21PM EST [id number]^AGFA_IDC^SI^ACNCCFRadiology, Radiologist, - 01/04/2024 * * *Final Report* [...] similar to 05/04/2017. Mild right knee osteoarthritis. Catering Sous Chef: ADELA Transcribe Date/Time: Jan 04 2024 12:48P Dictated by : CHELSEA REEVES MD This examination was interpreted and the report reviewed and electronically signed by: CHELSEA REEVES MD on Jan 04 2024 1:21PM EST [id number]^AGFA_IDC^SI^ACN NOMS HealthcareXR KNEE 4V AP/PA/LAT/MERCH RAMIRO* * *Final Report* [...] similar to 05/04/2017. Mild right knee osteoarthritis. 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 Mild right knee osteoarthritis. Catering Sous Chef: PSCB Transcribe Date/Time: Jan 04 2024 12:48P Dictated by : CHELSEA REEVES MD This examination was interpreted and the report reviewed and electronically signed by: CHELSEA REEVES MD on Jan 04 2024 1:21PM EST [facility]* * *Final Report* * * DATE [...] similar when compared to 05/04/2017. [facility]OLOGYProvider, [facility] - 01/04/2024 * * *Final Report* * [...] similar to 05/04/2017. Mild right knee osteoarthritis. Catering Sous Chef: ADELA Transcribe Date/Time: Jan 04 2024 12:48P Dictated by : CHELSEA REEVES MD This examination was interpreted and the report reviewed and electronically signed by: CHELSEA REEVES MD on Jan 04 2024 1:21PM [facility] CBC W AUTO DIFF BLDon 59-73-8765Ogjmkbver/100 WBC (Bld)0.6 % [facility] BASOPHILS # BLD AUTO0.03NILaFollette Medical Center DIFFERENTIAL METHOD BLDAutoNOMLakeland Regional Hospital EOSINOPHIL # BLD AUTO0.06NILaFollette Medical Center LYMPHOCYTES # BLD AUTO1.71[facility] MONOCYTES # BLD AUTO0.28NILaFollette Medical Center NEUTROPHILS # BLD AUTO2.58[facility] NRBC # BLD AUTO<0.01 NINMercy McCune-Brooks Hospital NRBC/100 WBC BLD-RTO0/100 WBCDeaconess Incarnate Word Health System PLATELET # BLD [id number] Incarnate Word Health System PMV BLD AUTO10.4 fL9.0 - 12.7 fLNortheast Regional Medical Center CCF WBC # BLD AUTO4.67NOCitizens Memorial HealthcareEosinophils/100 WBC (Bld)1.3 %[facility] Regional Medical CenterErythrocyte distribution width (RBC) [Ratio]13.2 %11.5 - 15.0 %[facility] Regional Medical CenterHematocrit (Bld) [Volume fraction]40.9 %39.0 - 51.0 %[facility] Hemoglobin (Bld) [Mass/Vol]14.3 g/dL13.0 - 17.0 g/dLMissouri Southern Healthcare GRANULOCYTES # BLD AUTO<0.03NIBaptist Memorial Hospital GRANULOCYTES/LEUK NFR BLD AUTO0.2 %[facility] Regional Medical CenterLymphocytes/100 WBC (Bld)36.6 %[facility] Institute [facility] St. LouisH (RBC) [Entitic mass]29.9 pg26.0 - 34.0 pgThe Rehabilitation Institute of St. LouisHC (RBC) [Mass/Vol]35 g/dL 30.5 - 36.0 g/dLThe Rehabilitation Institute of St. LouisV (RBC) [Entitic vol]85.4 fL80.0 - 100.0 fLNortheast Regional Medical CenterMonocytes/100 WBC (Bld)6 %[facility] Regional Medical CenterNeutrophils/100 WBC (Bld)55.3 %[facility] Regional Medical CenterRBC (Bld) [#/Vol]4.79 10*6/uL4.20 - 6.00 m/uLNortheast Regional Medical Center Specimen Type: BLOOD SPECIMEN Ordering Facility: [facility] Address: [facility] [place] [address] Original Ordering Provider: DELMY CORONA Holzer HospitalLipid Panelon [id number] [Mass/Vol]155 mg/wTYnqplw440-196Sat [facility] Physician GroupComment on above:Result Comment: Chol less than 200 mg/dl low risk Chol 201-239 mg/dl borderline risk Chol 240 mg/dl and greater high riskPerformed By: #### LIPID, [id number], TSH3 wRFLX #### [facility] [address] [place] [address] USACholesterol in HDL [Mass/Vol]46 mg/jUOfuurv80-83Xxl [facility] Physician GroupComment on above:Result Comment: HDL CHOL ATP-III CLASSIFICATION Cardiovascular Risk HDL > or equal to 60 mg/dL LOW HDL < 40 mg/dL HIGHPerformed By: #### LIPID, [id number], TSH3 wRFLX #### [facility] [address] [place] [address] USACholesterol.total/Cholesterol in HDL [Mass ratio]3.4 {ratio}Normal<5.0The [facility] Physician GroupComment on above:Performed By: #### LIPID, [id number], TSH3 wRFLX #### [facility] [address] [place] [address] USALDL Cholesterol,Ycqrbpokpa55 mg/dLNormal0-100The [facility] Physician GroupComment on above:Result Comment: LDL ATP III CLASSIFICATION LDL less than 100 mg/dL Optimal LDL 100-129 mg/dL Near or above optimal LDL 130-159 mg/dL Borderline high LDL 160-189 mg/dL High LDL greater than 189 mg/dL Very highPerformed By: #### LIPID, [id number], TSH3 wRFLX #### [facility] [address] [place] [address] USATriglyceride w/Cdqedm81 mg/dLNormal0-149The [facility] Physician GroupComment on above:Result Comment: TRIG ATP III CLASSIFICATION TRIG less than 150 mg/dL Normal TRIG 150-199 mg/dL Borderline high TRIG 200-500 mg/dL High TRIG greater than 500 mg/dL Very high Standard traceable to the Center for Disease Conrtrol and Prevention (CDC) test method.Performed By: #### LIPID, [id number], TSH3 wRFLX #### [address] [address] USAVLDL SFDHUOJNIUW90 mg/dLNormalThe [facility] Physician GroupComment on above:Performed By: #### LIPID, [id number], TSH3 wRFLX #### [address] [address] USAThyroid Stim Hormone w/Rflxon 93-71-1298Gnlksgv Stim Hormone w/Rflx0.91 u[iU]/mLNormal0.45-5.33The [facility] Physician [facility] River GulfportComment on above:Performed By: #### LIPID, [id number], TSH3 wRFLX #### [address] [address] USAVitamin D 25 Hydroxy Totalon 38-04-3431Ruwuhod D 25 Hydroxy Total26.8 ng/eAWnc34-963Drr [facility] Physician [facility] River GulfportComment on above: Result Comment: VITAMIN D STATUS 25(OH)VITAMIN D RANGE (ng/mL) Deficient <20 Insufficient 20 to <30 Sufficient 30 to 100 Reference: Harpal MF,[place] NC, Dayron WAN, et al. Evaluation,treatment, and prevention of vitamin D deficiency; an Endocrine Society clinical practice guideline. JCEM. 2010; 96(7):1911-30. PERFORMED BY: [place] [id number] PATHOLOGIST SOFTWARE TEST MANAGER MARIO PEDERSON M.D.Performed By: #### LIPID, [id number], TSH3 wRFLX #### [place] [id number] USAConsent for Treatmenton 77-27-6956Hogxwvu for Treatment [id number]#1.00TIFFFayette County Memorial HospitalDischarge Instructionson 36-49-6866Zwplttmpt Instructions [id number]#1.00TIFFCarmen [facility] Clinical Summaryon [id number] Clinical Summary [place] [id number] ED Clinical Summary Person Information Name: NICK WRAY/[facility] Age: 32 Years : 1990 Sex: Male Language: Portuguese PCP: LEYDI ACEVES MD Marital Status: MRN: [...] 15:31:03 02/24/2023 15:31:03 02/24/2023 15:31:03 ADDRESS: [address] [id number] PHYS DOC NOTES: MEDICAL INFORMATION: Prescriptions Given: New Medications [id number], [address], [place] [id number], [phone] predniSONE (predniSONE 10 mg Tab) 1 Dose [...] pain. PATIENT EDUCATION INFORMATION: Instructions: Knee Effusion, Cmmz-dk-Bgjm Follow up: With: Address: When: LEYDI ACEVES [address] [place], [place] [id number] [facility] () In 3 days 02/27/2023 Comments: Take the steroids once daily as prescribed to completed the course. Please follow-up with your primary care doctor in the next 2 to 3 days for further evaluation management. Please return to ED for any worsening symptoms. Follow-up with your orthopedic doctor for further evaluation management. DIAGNOSIS: Swelling of joint, knee, rightNormalFisher Ced Medical CenterED Note-Physician on [id number] Note-PhysicianBasic Information Time Seen: Cecile OTOOLE Caitielanette Redding 02/24/2023 14:07 Chief Complaint Pt had knee surgery for scope to clean out gout in [place] by a doctor out of [place]. Pt. states has had fluiding building up in R knee since Wednesday. Called ortho doc who did surgery and told to [facility] to get fluid drained. Attempted to go to [place] History of Present Illness Patient is a 30-year-old male with past medical history of rheumatoid arthritis, gout presenting tot ED for evaluation of swelling to the right knee. Patient states he had a scope for gout in [place] on Wednesday, since then has been having [...] Problems Differential Diagnosis: [] [facility] Data External documents reviewed: [] My [...] days., # 75 tab(s), Refills(s) 0, Pharmacy: [id number], 187, cm, 02/24/23 12:43:00 EST, Height/Length Dosing... Disposition Plan Discharge Prescription List Prescriptions predniSONE 10 mg Tab, 1 -, Oral, As Directed Follow-up With When Contact Information LEYDI ACEVES In 3 days 02/27/2023 EST [address] [place] [id number] Business (1) Additional Instructions: Take the steroids once daily as prescribed to completed the course. Pleasefollow-up with your primary care doctor in the next 2 to 3 days for further evaluation management. Please return to ED for any worsening symptoms. Follow-up with your orthopedic doctor for further evaluation management. Patient Education Knee Effusion, Mcgr-mh-Ykcp Problem List/Past Medical History Ongoing No qualifying [...] mcg= 1 tab(s) (more content not included)... [facility] HospitalComment on above:Result Comment: Electronically Signed By: Ladi Huber DO\.br\Date and Time Signed: 02/24/23 14:41 ESTED Patient Education Noteon [id number] Patient Education NoteOrthopedics Knee Effusion Knee effusion [...] by your doctor. General instructions ? Take dpjy-eim-lbjfygm and prescription medicines only as told by [...] bend and move your knee. ? Take unji-nzw-wzdoadi and prescription medicines only as told by your doctor. ? If you have a brace or an immobilizer, wear it as told by your doctor. This information is not intended to replace advice given to you by your health care provider. Make sure you discuss any questions you have with your health care provider. Document Revised: 10/16/2020 Document Reviewed: 10/16/2020 [employer] Patient Education ? 2022 [employer] ED Patient Summaryon [id number] Patient Summary [place] [id number] Patient Discharge Instructions Person Information Name: NICK WRAY Age: 32 Years Arrival Date: 02/24/2023 12:18:34 Discharge Diagnosis: Swelling of joint, knee, right Primary Care Physician: LEYDI ACEVES MD Provider Information Primary Provider: Ladi Huber DO Advanced Microfabrication Engineer Manager:None The exam and treatment you received in the Emergency Department were for an urgent problem and are not intended as complete care. It is important that you follow up with a doctor, nurse practitioner,or physician?s or assistant for ongoing care. If your symptoms [...] Follow-up Instructions: With: Address: When: LEYDI ACEVES [address] [place] [id number] Business (1) In 3 days 02/27/2023 Comments: [...] participating provider. Patient Education Materials: Knee Effusion, Qprl-ly-Yqfn A MESSAGE TO ALL PATIENTS REGARDING OPIOIDS PRESCRIPTION OPIOIDS: WHAT YOU NEED TO KNOW Prescription opioids can be used to help relieve zendaimz-fh-zsyyog pain and are often prescribed following a [...] your community drug take- back program or yourpharmacy mail-back program, or flush them down the toilet, following guidance from the Food and Drug Administration (www.fd (more content not included)...[facility] HospitalElizabeth Sanzon 02-23-2023 Crystals,FluidPositiveAbnormalNEGMercy Beacham Memorial HospitalComment on above:Result Comment: FEW INTRACELLULAR AND MANY EXTRACELLULAR URIC ACID CRYSTALSPerformed By: #### FLCRYS #### [address] [place] [address] Supervisor Bridges [employer] Buildings: Krish Abdi MD [facility] [address] [place] [address] Supervisor [employer]ges [employer] Buildings: Lauri Godoy MD #### FLDCT #### [facility] [address] [place] [address] Supervisor Bridges [employer] Buildings: CARY Gutiérrezathologist Review:ELECTRONICALLY SIGNED. LAURI GODOY MDSelect Medical Specialty Hospital - ColumbusComment on above:Performed By: #### FLCRYS #### [facility] [address] [place] [address] Supervisor Bridges And Buildings: Krish Abdi MD [facility] [address] [place] [address] Supervisor Bridges [employer] Buildings: Lauri Godoy MD #### FLDCT #### [facility] [address] [place] [address] Supervisor Bridges [employer] Buildings: Lauri Godoy MDFluid Cell Count and Diffon 02-19-2023 Basophils/100 WBC (Bld)0 %Egwtam[address]Rok[address] [place], [place] [address]Comment on above: Performed By: #### FLCRYS #### [facility] [address] [place] [address] Supervisor Bridges [employer] Buildings: Krish Abdi MD [facility] [address] [place] [address] Supervisor Bridges And Buildings: Lauri Godoy MD #### FLDCT #### [facility] [address] [place] [address] Supervisor Bridges And Buildings: Lauri Godoy MDEosinophils/100 WBC (Bld)0 %[address] Walton StreetComment on above:Performed By: #### FLCRYS #### [facility] [address] [place] [address] Supervisor Bridges And Buildings: Krish Abdi MD [facility] [address] [place] [address] Supervisor Bridges [employer] Buildings: Lauri Godoy MD #### FLDCT #### [facility] [address] [place] [address] Supervisor Bridges And Buildings: Lauri Godoy MDLymphocytes/100 WBC (Bld)10 %[facility] Hospital - ColumbusComment on above:Performed By: #### FLCRYS #### [facility] [address] [place] [address] Supervisor Bridges And Buildings: Krish Abdi MD [facility] [address] [place] [address] Supervisor [employer]ges [employer] Buildings: Lauri Godoy MD #### FLDCT #### [facility] [address] [place] [address] Supervisor Bridges And Buildings: ENZO Gutiérrezono/Macrophage0 %[facility] Comment on above:Performed By: #### FLCRYS #### [facility] [address] [place] [address] Supervisor Bridges [employer] Buildings: Krish Abdi MD [facility] [address] [place] [address] Supervisor Bridges [employer] Buildings: Lauri Godoy MD #### FLDCT #### [facility] [address] [place] [address] Supervisor Bridges And Buildings: Lauri Godoy MDNeutrophils/100 WBC (Bld)90 %[facility] Hospital - ColumbusComment on above:Performed By: #### FLCRYS #### [facility] [address] [place] [address] Supervisor Bridges [employer] Buildings: Krish Abdi MD [facility] [address] [place] [address] Supervisor [employer]ges [employer] Buildings: Lauri Godoy MD #### FLDCT #### [facility] [address] [place] [address] Supervisor Bridges And Buildings: HERACLIO GutiérrezBC (Bld) [#/Vol]0.51432 10*6/uLNormalCleveland Clinic Medina HospitalComment on above:Performed By: #### FLCRYS #### [facility] [address] [place] [address] Supervisor Bridges And Buildings: Krish Abdi MD [facility] [address] [facility] [place] [address] Supervisor Bridges And Buildings: Lauri Godoy MD #### FLDCT #### [facility] [address] [place] [address] Supervisor Bridges And Buildings: Lauri Godoy MDHOSPITAL FOR SPECIAL SURGERY (d) [#/Vol]9.96 10*3/[facility] Memorial HospitalComment on above:Performed By: #### FLCRYS #### [facility] [address] [place] [address] Supervisor Bridges And Buildings: Krish Abdi MD [facility] [address] [place] [address] Supervisor Bridges And Buildings: Lauri Godoy MD #### FLDCT #### [facility] [address] [place] [address] Supervisor Bridges And Buildings: Rita Gutiérrez ([facility] Comment on above:Performed By: #### FLCRYS #### [facility] [address] [place] [address] Supervisor Bridges And Buildings: Krish Abdi MD [facility] [address] [place] [address] Supervisor [employer]ges [employer] Buildings: Lauri Godoy MD #### FLDCT #### [facility] [address] [place] [address] Supervisor Bridges And Buildings: Frank Gutiérrez [facility] Comment on above:Performed By: #### FLCRYS #### [facility] [address] [place] [address] Supervisor Bridges [employer] Buildings: Krish Abdi MD [facility] [address] [place], [place] [id number] Supervisor Bridges [employer] Buildings: Lauri Godoy MD #### FLDCT #### [facility] [address] [place], [place] [id number] Supervisor Bridges And Buildings: Lauri Godoy MDType of Specimen.[facility] Comment on above:Performed By: #### FLCRYS #### [facility] [address] [place] [address] Supervisor Bridges And Buildings: Krish Abdi MD [facility] [address] [place], [place] [id number] Supervisor Bridges [employer] Buildings: Lauri Godoy MD #### FLDCT #### [facility] [address] [place], [place] [id number] Supervisor Bridges And Buildings: PITO Gutiérrez AUTO DIFFon [id number] #0.0 103/ulNormal 0.0-0.1Bucyrus Community HospitalComment on above:Performed By: #### CBC #### [facility] [address] [place] [address] [address] Nilay Limsophils/100 WBC (Bld)0.2 %Normal0.2-2.0[facility] Comment on above:Performed By: #### CBC #### [facility] [address] [place] [address] [address] Nilay Wong #0.0 103/ulNormal0.0-0.7The [facility] Hospital At SouthwoodsComment on above: Performed By: #### CBC #### [facility] [address] [place] [address] [address] Nilay Talleyosinophils/100 WBC (Bld)0.3 %Critically low0.9-7.0The The [facility] Hospital At SouthwoodsComment on above:Performed By: #### CBC #### [facility] [address] [place] [address] [address] Nilay Talleyrythrocyte distribution width (RBC) [Ratio]13.9 %Skraak41.0-15.0 [facility]rus Community HospitalComment on above:Performed By: #### CBC #### [facility] [address] [place] [address] Dr. Nilay GibbsHematocrit (Bld) [Volume fraction]39.8 %Critically low42.0-54.0 The The [facility] Hospital At SouthwoodsComment on above:Performed By: #### CBC #### [facility] [address] [place] [address] Dr. Nilay GibbsHemoglobin (Bld) [Mass/Vol]13.2 g/dLCritically low14.0-18.0The [facility] Hospital At SouthwoodsComment on above:Performed By: #### CBC #### [facility] Laboratory [address] [place] [address] Dr. Nilay Ernst #0.04 10e3/ulCritically high0.00-0.03The [facility] Comment on above:Performed By: #### CBC #### [facility] Laboratory [address] [place] [address] Dr. Nilay Ernst %0.4 %Normal0.0-0.5The [facility]woodsComment on above: Performed By: #### CBC #### [facility] Laboratory [address] [place] [address] Dr. Nilay Ellsworth #1.8 103/ulNormal1.2-3.8The [facility]woodsComment on above:Performed By: #### CBC #### [facility] Laboratory [address] [place] [address] Dr. Nilay Dickersonmphocytes/100 WBC (Bld)17.5 %Critically low20.5-60.0[facility] Community HospitalComment on above:Performed By: #### CBC #### [facility] Laboratory [address] [place] [address] Dr. Nilay KilpatrickUAL DIFF REQNONormalThe [facility]woodsComment on above: Performed By: #### CBC #### [facility] Laboratory [address] [place] [address] Dr. Nilay Glasgow (RBC) [Entitic mass]29.3 bsJehkgg93.9-34.0The [facility]woodsComment on above:Performed By: #### CBC #### [facility] Laboratory [address] [place] [address] Dr. Nilay Hodges (RBC) [Mass/Vol]33.2 g/pVKhsmgj72.9-35.2The [facility]woodsComment on above:Performed By: #### CBC #### [facility] Laboratory [address] [place] [address] Dr. Nilay Raza (RBC) [Entitic vol]88.4 gCLzmyoa90.0-94.0The [facility]woodsComment on above:Performed By: #### CBC #### [facility] Laboratory [address] [place] [address] Dr. Nilay Rendon #0.9 103/ulCritically high0.3-0.8The [facility] Comment on above:Performed By: #### CBC #### [facility] Laboratory [address] [place] [address] Dr. Nilay Grahamocytes/100 WBC (Bld)9.4 %Normal1.7-12.0[facility] Comment on above:Performed By: #### CBC #### [facility] Laboratory [address] [place] [address] Dr. Nilay Coulter #7.2 103/ulCritically high1.4-6.5The [facility] Comment on above:Performed By: #### CBC #### [facility] Laboratory [address] [place] [address] Dr. Nilay Brownutrophils/100 WBC (Bld)72.2 %Pjfbfj76.0-75.0The [facility]woodsComment on above:Performed By: #### CBC #### [facility] Laboratory [address] [place] [address] Dr. Nilay Gutierrezlet mean volume (Bld) [Entitic vol]9.6 fLNormal9.5-13.5The [facility]woodsComment on above:Performed By: #### CBC #### [facility] Laboratory [address] [place] [address] Dr. Nilay GibbsPLT356 103/mqKsctuu314-029Nja [facility]woodsComment on above: Performed By: #### CBC #### [facility] Laboratory [address] [place] [address] Dr. Nilay GibbsRBC4.50 106/ulCritically low4.70-6.10The [facility]woodsComment on above:Performed By: #### CBC #### [facility] Laboratory [address] [place] [address] Dr. Nilay GibbsWBC10.0 103/ulNormal4.0-11.0The [facility]woodsComment on above:Performed By: #### CBC #### [facility] Laboratory [address] [place] [address] Dr. Nilay GibbsPROF CHEM 8 (BAS METB)on 00-01-2509Hpkbs gap [Moles/Vol]12.4 mmol/LNormalThe [facility]woodsComment on above:Performed By: #### AMM #### [facility] Laboratory [address] [place] [address] Dr. Nilay GibbsCalcium [Mass/Vol]9.4 mg/dLNormal8.5-10.1The [facility] Comment on above:Performed By: #### AMM #### [facility] Laboratory [address] [place] [address] Dr. Nilay GibbsChloride [Moles/Vol]105 mmol/KJaeyqx29-559Zxb [facility] Comment on above:Performed By: #### AMM #### [facility] Laboratory [address] [place] [address] Dr. Nilay GibbsCO2 [Moles/Vol]25.6 mmol/XIlxund03.0-32.0The [facility] Comment on above:Performed By: #### AMM #### [facility] Laboratory [address] [place] [address] Dr. Nilay GibbsCreatinine [Mass/Vol]1.18 mg/dLNormal0.70-1.30The [facility]woodsComment on above:Performed By: #### AMM #### [facility] Laboratory [address] [address] [address] Pemberton ChangEGFR-AF SWISS>60Normal>=60The [facility]woodsComment on above:Performed By: #### AMM #### [facility] Laboratory [address] [address] [address] Nilay TalleyGFR-NON AF SWISS>60Normal>=60The [facility]woodsComment on above:Performed By: #### AMM #### [facility] Laboratory [address] [address] [address] Nilay GibbsGlucose [Mass/Vol]125 mg/dLCritically tefd39-224Ron [facility]woodsComment on above:Performed By: #### AMM #### [facility] Laboratory [address] [place] [address] Dr. Nilay GibbsPotassium [Moles/Vol]4.3 mmol/LNormal3.5-5.1The [facility] Comment on above:Performed By: #### AMM #### [facility] Laboratory [address] [address] [address] Nilay GibbsSodium [Moles/Vol]139 mmol/RVcglwp139-136Huk [facility] Comment on above:Performed By: #### AMM #### [facility] Laboratory [address] [place] [address] Dr. Nilay GibbsUrea nitrogen [Mass/Vol]15.0 mg/dLNormal7.0-18.0The [facility]woodsComment on above:Performed By: #### AMM #### [facility] Laboratory [address] [place] [address] Dr. Nilay GibbsUrea nitrogen/Creatinine [Mass ratio]12.7 mg/mgNormalThe [facility]Comment on above:Performed By: #### AMM #### [facility] Laboratory [address] [place] [address] Dr. Nilay ArnettC AUTO DIFFon 83-96-6629VZKT #0.0 103/ulNormal0.0-0.1The [facility]woodsComment on above:Performed By: #### AMM #### [facility] Laboratory [address] [address] [address] Nilay GibbsBasophils/100 WBC (Bld)0.2 %Normal0.2-2.0The [facility] Comment on above:Performed By: #### AMM #### [facility] Laboratory [address] [address] [address] Nilay Wong #0.0 103/ulNormal0.0-0.7The [facility]woodsComment on above: Performed By: #### AMM #### [facility] Laboratory [address] [place] [address] Dr. Nilay Talleyosinophils/100 WBC (Bld)0.3 %Critically low0.9-7.0The [facility]woodsComment on above:Performed By: #### AMM #### [facility] Laboratory [address] [place] [address] Dr. Nilay Talleyrythrocyte distribution width (RBC) [Ratio]14.3 %Kmtgbq69.0-15.0 [facility] HospitalComment on above:Performed By: #### AMM #### [facility] Laboratory [address] [place] [address] Dr. Nilay GibbsHematocrit (Bld) [Volume fraction]39.3 %Critically low42.0-54.0 [facility] HospitalComment on above:Performed By: #### AMM #### [facility] Laboratory [address] [place] [address] Dr. Nilay GibbsHemoglobin (Bld) [Mass/Vol]13.1 g/dLCritically low14.0-18.0The [facility]woodsComment on above:Performed By: #### AMM #### [facility] Laboratory [address] [place] [address] Dr. Nilay Ernst #0.03 10e3/ulNormal0.00-0.03The [facility] Rehabilitationment on above:Performed By: #### AMM #### [facility] Laboratory [address] [place] [address] Dr. Nilay Ernst %0.3 %Normal0.0-0.5The [facility]woodsComment on above: Performed By: #### AMM #### [facility] Laboratory [address] [place] [address] Dr. Nilay Ellsworth #1.7 103/ulNormal1.2-3.8The [facility]woodsComment on above:Performed By: #### AMM #### [facility] Laboratory [address] [place] [address] Dr. Nilay Warrenhocytes/100 WBC (Bld)14.5 %Critically low20.5-60.0The [facility]woodsComment on above:Performed By: #### AMM #### [facility] Laboratory [address] [place] [address] Dr. Nilay Colunga DIFF REQNONormalThe [facility]Comment on above: Performed By: #### AMM #### [facility] Laboratory [address] [place] [address] Dr. Nilay Hodges (RBC) [Entitic mass]29.2 buIwapsl12.9-34.0The [facility]woodsComment on above:Performed By: #### AMM #### [facility] Laboratory [address] [place] [address] Dr. Nilay Hodges (RBC) [Mass/Vol]33.3 g/lNWdhotf43.9-35.2The [facility]woodsComment on above:Performed By: #### AMM #### [facility] Laboratory [address] [place] [address] Dr. Nilay Raza (RBC) [Entitic vol]87.5 hXCwtaze91.0-94.0The [facility]woodsComment on above:Performed By: #### AMM #### [facility] Laboratory [address] [place] [address] Dr. Nilay Rendon #1.3 103/ulCritically high0.3-0.8The [facility] Comment on above:Performed By: #### AMM #### [facility] Laboratory [address] [place] [address] Dr. Nilay Grahamocytes/100 WBC (Bld)10.9 %Normal1.7-12.0The [facility] Comment on above:Performed By: #### AMM #### [facility] Laboratory [address] [place] [address] Dr. Nilay Coulter #8.7 103/ulCritically high1.4-6.5The [facility] Comment on above:Performed By: #### AMM #### [facility] Laboratory [address] [place] [address] Dr. Nilay Brownutrophils/100 WBC (Bld)73.8 %Zcwwgh52.0-75.0The [facility]woodsComment on above:Performed By: #### AMM #### [facility] Laboratory [address] [place] [address] Dr. Nilay Gutierrezlet mean volume (Bld) [Entitic vol]10.9 fLNormal9.5-13.5The [facility]woodsComment on above:Performed By: #### AMM #### [facility] Laboratory [address] [place] [address] Dr. Nilay GibbsPLT171 103/dgGjrikp042-058Erq [facility]Comment on above: Performed By: #### AMM #### [facility] Laboratory [address] [place] [address] Dr. Nilay GibbsRBC4.49 106/ulCritically low4.70-6.10The [facility]woodsComment on above:Performed By: #### AMM #### [facility] Laboratory [address] [place] [address] Dr. Nilay DuganBC11.7 103/ulCritically high4.0-11.0The [facility]woodsComment on above:Performed By: #### AMM #### [facility] Laboratory [address] [place] [address] Dr. Nilay Angel 61-52-5438LXZ51.4 mg/dLCritically high<=1.0The [facility]woodsComment on above:Performed By: #### CRP, CMP #### [facility] Laboratory [address] [place] [address] Dr. Nilay Jackson BLOODon 52-53-3848Szfrddkhgcd examination of blood, cultureCulture Observations: NO GROWTH AT 5 DAYS.NormalThe [facility]ello HospitalComment on above:Performed By: #### CMP #### [facility] Laboratory [address] [place] [address] Dr. Nilay GibbsMicroscopic examination of blood, cultureCulture Observations: NO GROWTH AT 5 DAYS.NormalThe [facility] HospitalComment on above:Performed By: #### CMP #### [facility] Laboratory [address] [place] [address] Dr. Nilay GibbsLACTATE/LACTIC ACIDon 81-50-3582Rptkgsw [Moles/Vol]0.7 mmol/L Normal0.4-2.0The [facility]Comment on above:Performed By: #### AMM #### [facility] Laboratory [address] [place] [address] Dr. Nilay GibbsPROF 14(COMP METB)on 71-83-6122Axmuucd [Mass/Vol]3.8 g/dLNormal 3.4-5.0The [facility]Comment on above:Performed By: #### CRP, CMP #### [facility] Laboratory [address] [place] [address] Dr. Nilay GibbsAlbumin/Globulin [Mass ratio]1.1 {ratio}NormalThe [facility]Comment on above:Performed By: #### CRP, CMP #### [facility] Laboratory [address] [place] [address] Dr. Nilay Young [Catalytic activity/Vol]85 U/NJhwync01-001Dgq [facility]Comment on above:Performed By: #### CRP, CMP #### [facility] Laboratory [address] [place] [address] Dr. Nilay Childs [Catalytic activity/Vol]29 U/GIukwcz02-38Gqi [facility]Comment on above:Performed By: #### CRP, CMP #### [facility] Laboratory [address] [place] [address] Dr. Nilay GibbsAnigretchen gap [Moles/Vol]15.2 mmol/LNormalThe [facility] Comment on above:Performed By: #### CRP, CMP #### [facility] Laboratory [address] [address] [address] Nilay GibbsAST [Catalytic activity/Vol]20 U/IDhyjyl81-13Wpn [facility]Comment on above:Performed By: #### CRP, CMP #### [facility] Laboratory [address] [address] [address] Nilay GibbsBilirubin [Mass/Vol]1.1 mg/dLCritically high0.2-1.0The [facility]Comment on above:Performed By: #### CRP, CMP #### [facility] Laboratory [address] [address] [address] Nilay GibbsCalcium [Mass/Vol]9.4 mg/dLNormal8.5-10.1[facility] Comment on above:Performed By: #### CRP, CMP #### [facility] Laboratory [address] [place] [address] Dr. Nilay GibbsChloride [Moles/Vol]99 mmol/WGfttgc90-381MmiBucyrus Community Hospital Comment on above:Performed By: #### CRP, CMP #### [facility] Laboratory [address] [place] [address] Dr. Nilay GibbsCO2 [Moles/Vol]25.7 mmol/BIbouru65.0-32.0[facility] Comment on above:Performed By: #### CRP, CMP #### [facility] Laboratory [address] [place] [address] Dr. Nilay GibbsCreatinine [Mass/Vol]1.32 mg/dLCritically high0.70-1.30The [facility]Comment on above:Performed By: #### CRP, CMP #### [facility] Laboratory [address] [place] [address] Dr. Nilay TalleyGFR-AF SWISS>60Normal>=60The [facility]woodsComment on above:Performed By: #### CRP, CMP #### [facility] Laboratory [address] [address] [address] Nilay TalleyGFR-NON AF SWISS>60Normal>=60The [facility]woodsComment on above:Performed By: #### CRP, CMP #### [facility] Laboratory [address] [place] [address] Dr. Nilay GibbsGlobulin (S) [Mass/Vol]3.6 g/dLNormalThFayette County Memorial HospitalComment on above:Performed By: #### CRP, CMP #### [facility] Laboratory [address] [place] [address] Dr. Nilay GibbsGlucose [Mass/Vol]106 mg/iJBelbfd29-148Cud [facility] Comment on above:Performed By: #### CRP, CMP #### [facility] Laboratory [address] [place] [address] Dr. Nilay GibbsPotassium [Moles/Vol]3.9 mmol/LNormal3.5-5.1The [facility] Comment on above:Performed By: #### CRP, CMP #### [facility] Laboratory [address] [place] [address] Dr. Nilay GibbsProtein [Mass/Vol]7.4 g/dLNormal6.4-8.2The [facility] Comment on above:Performed By: #### CRP, CMP #### [facility] Laboratory [address] [place] [address] Dr. Nilay Agostodium [Moles/Vol]136 mmol/VHfvxqe032-000FwaBucyrus Community Hospital Comment on above:Performed By: #### CRP, CMP #### [facility] Laboratory [address] [place] [address] Dr. Nilay GibbsUrea nitrogen [Mass/Vol]10.0 mg/dLNormal7.0-18.0The [facility]woodsComment on above:Performed By: #### CRP, CMP #### [facility] Laboratory [address] [place] [address] Dr. Nilay Faye nitrogen/Creatinine [Mass ratio]7.6 mg/mgNormalThFayette County Memorial HospitalComment on above:Performed By: #### CRP, CMP #### [facility] Laboratory [address] [place] [address] Dr. Yilan ChangSED RATE WESTERGRENon 83-90-4514ZFZ RATE46 mm/hrCritically high <=15The [facility] Rehabilitationment on above:Performed By: #### SEDR #### [facility] Laboratory [address] [place] [address] Dr. Nilay GibbsCovid-19 PCR ([facility])on 61-42-7477EPDY-CoV-2 (COVID-19) RNA TALHA+probe Ql (Unsp spec)Not detectedNormalNOT DETECTEDThe [facility] Comment on above:Result Comment: When diagnostic testing [...] for this test is supported by the Track Mechanic of Health and Human Service's declaration [...] longer be used).Performed By: #### AMM #### [facility] Laboratory [address] [place] [address] Dr. Nilay GibbsINFLUENZA A AND B AGon 73-65-6327XFEOGIENMEXRC BELOWMercy Health Springfield Regional Medical CenterComment on above:Result Comment: Negative for Flu A protein angiten. Infection due to Flu A cannot be ruled out. FluA angiten in the sample may be below the detection limit of the test.Performed By: #### AMM #### [facility] Laboratory [address] [place] [address] Dr. Nilay GibbsINFLUBNEGHSMARTITA [facility] CenterComsouthwest regional rehabilitation center on above: Result Comment: Negative for Flu B protein antigen. Infection due to Flu B cannot be ruled out. FluB antigen in the sample may be below the detection limit of the test.Performed By: #### AMM #### [facility] Laboratory [address] [address] [address] Nilay Redding AGNegativeNormalNEGATIVE SEE COMMENTThe [facility]Comment on above:Performed By: #### AMM #### [facility] Laboratory [address] [address] [address] Nilay Blanc AGNegativeNormalNEGATIVE SEE COMMENTThe [facility]woodsComment on above:Performed By: #### AMM #### [facility] Laboratory [address] [address] [address] Nilay GibbsINTERNAL CONTROLSWithin Normal LimitsNormalWithin Normal Limits The [facility]woodsComment on above:Performed By: #### AMM #### [facility] Laboratory [address] [address] [address] Nilay GibbsCholesterol [Mass/volume] in Serum or PlasmaOrdered By: Adam Young on 35-66-3648Qowejqyupfy [Mass/Vol]205 mg/jE026-103AygllrpspLouis Stokes Cleveland Va Medical CenterComment on above:Chol less than 200 mg/dl low riskChol 201-239 mg/dl borderline riskChol 240 mg/dl and greater high riskCholesterol in LDL Calc [Mass/Vol]Ordered By: Adam Young on 28-78-0848Toanfnkwvlv in LDL [Mass/Vol] 120 mg/dL0-100[facility] CenterComment on above:LDL ATP III CLASSIFICATIONLDL less than 100 mg/dL OptimalLDL 100-129 mg/dL Near or above xltrhvoXUG917-964 mg/dL Borderline highLDL 160-189 mg/dL HighLDL greater than 189 mg/dL Very highCholesterol in VLDL Calc [Mass/Vol]Ordered By: Adam Young on 93-46-9001Fgbcuwuuoln in VLDL [Mass/Vol]37 mg/dLLouis Stokes Cleveland Va Medical CenterNo Panel InformationOrdered By: Adam Young on 54-04-322628450716-Rqlwxne Vitamin D Total50.6 ng/tW53-336YwejjflzwLouis Stokes Cleveland Va Medical CenterComment on above:VITAMIN D STATUS 25(OH)VITAMIN D RANGE (ng/mL) Deficient <20 Insufficient 20 to <48Exeabjtekw51 to 100Reference: Harpal MF,[place] SENIOR, Dayron WAN, et al. Evaluation,treatment, and prevention of vitamin D deficiency; an Endocrine Society clinical practice guideline. JCEM. 2010; 96(7):1911-30. Serum or plasma high density lipoprotein (HDL) cholesterol measurementOrdered By: Adam Young on 74-16-9502Blgvpgigerf in HDL [Mass/Vol]47 mg/dL29-71 [facility] CenterComment on above:HDL CHOL ATP-III CLASSIFICATION Cardiovascular RiskHDL > or equal to 60 mg/dL LOWHDL < 40 mg/dL HIGHSerum or plasma total cholesterol/high density lipoprotein (HDL) cholesterol mass ratOrdered By: Adam Young on 88-28-3948Ptpgaxmstdq.total/Cholesterol in HDL [Mass ratio]4.4 {ratio}<5.0[facility] DL <= 0.005 mIU/L QnOrdered By: Adam Young on 42-34-6102SLW Qn0.75 m[IU]/L 0.45-5.33[facility] Medical CenterTriglyceride [Mass/volume] in Serum or PlasmaOrdered By: Adam Young on 62-20-0297Jbhgdzvusrxf [Mass/Vol]188 mg/dL 35-149[facility] CenterComment on above:TRIG ATP III CLASSIFICATIONTRIG less than 150 mg/dL NormalTRIG 150-199 mg/dL Borderline highTRIG 200-500 mg/dL High TRIG greater than 500 mg/dL Very highStandard traceable to the Center for Disease Conrtrol and Prevention (CDC) test method. Covid-19 PCR (CVDTB)on 75-75-6667DCYU-CoV-2 (COVID-19) RNA TALHA+probe Ql (Unsp spec)Not detectedNormalNOT DETECTEDThe [facility]woodsComment on above:Result Comment: When diagnostic testing is [...] for this test is supported by the Track Mechanic of Health and Human Service's declaration [...] longer be used).Performed By: #### CMP #### [facility] Laboratory [address] [place] [address] Dr. Nilay Washington (BLD ALC)on 23-90-2781Jripikz [Mass/Vol]288 mg/dLNormal [facility] on above:Performed By: #### CMP #### [facility] Laboratory [address] [place] [address] Dr. Nilay GibbsALC NOTENOTE: 80 mg/dl is the legal limit for a blood alcohol levelMercy Health Springfield Regional Medical CenterComment on above:Performed By: #### CMP #### [facility] Laboratory [address] [place] [address] Dr. Nilay GibbsPerformed By: #### AMM #### [facility] Laboratory [address] [place] [address] Dr. Nilay Talleythanol [Mass/Vol]130 mg/dLHolzer Hospital on above:Performed By: #### AMM #### [facility] Laboratory [address] [place] [address] Dr. Nilay Talleythanol [Mass/Vol]196 mg/dLMercy Health Springfield Regional Medical CenterComsouthwest regional rehabilitation center on above:Performed By: #### AMM #### [facility] Laboratory [address] [place] [address] Dr. Nilay GibbsACETAMINOPHENon 79-27-2435Psgxxbafouhia [Mass/Vol]ug/mLCritically low10.0-30.0The [facility]um HospitalComment on above:Performed By: #### ACET #### [facility] Laboratory [address] [place] [address] Dr. Nilay WildeONIAgretchen 12-00-2010Sogsqtj (P) [Moles/Vol]22 umol/CJslvbm93-80 [facility] Hospitalment on above:Performed By: #### AMM #### [facility] Laboratory [address] [place] [address] Dr. Nilay ArnettC AUTO DIFFon 26-38-0823MCOL #0.0 103/ulNormal0.0-0.1The [facility]woodsComment on above:Performed By: #### AMM #### [facility] Laboratory [address] [place] [address] Dr. Nilay GibbsBasophils/100 WBC (Bld)0.5 %Normal0.2-2.0[facility] Comment on above:Performed By: #### AMM #### [facility] Laboratory [address] [place] [address] Dr. Nilay Wong #0.1 103/ulNormal0.0-0.7The [facility] on above: Performed By: #### AMM #### [facility] Laboratory [address] [place] [address] Dr. Nilay Talleyosinophils/100 WBC (Bld)1.0 %Normal0.9-7.0[facility] Comment on above:Performed By: #### AMM #### [facility] [address] [place] [address] Dr. Nilay Talleyrythrocyte distribution width (RBC) [Ratio]12.9 %Fjwrnu70.0-15.0 [facility] HospitalComment on above:Performed By: #### AMM #### [facility] [address] [place] [address] Dr. Nilay GibbsHematocrit (Bld) [Volume fraction]40.5 %Critically low42.0-54.0 [facility] on above:Performed By: #### AMM #### [facility] [address] [place] [address] Dr. Nilay GibbsHemoglobin (Bld) [Mass/Vol]13.9 g/dLCritically low14.0-18.0The [facility]woodsComment on above:Performed By: #### AMM #### [facility] [address] [place] [address] Dr. Nilay Ernst #0.02 10e3/ulNormal0.00-0.03The [facility]woodsComment on above:Performed By: #### AMM #### [facility] [address] [place] [address] Dr. Nilay Ernst %0.3 %Normal0.0-0.5The [facility]woodsComment on above: Performed By: #### AMM #### [facility] [address] [place] [address] Dr. Nilay Ellsworth #2.7 103/ulNormal1.2-3.8The [facility]woodsComment on above:Performed By: #### AMM #### [facility] [address] [place] [address] Dr. Nilay Warrenhocytes/100 WBC (Bld)45.2 %Puupoj36.5-60.0The [facility]Comsouth[facility] on above:Performed By: #### AMM #### [facility] [address] [place] [address] Dr. Nilay KilpatrickUAL DIFF REQNONormalThe [facility]woodsComment on above: Performed By: #### AMM #### [facility] [address] [place] [address] Dr. Nilay Hodges (RBC) [Entitic mass]29.8 htLthkdw85.9-34.0The [facility] SouthwoodsComment on above:Performed By: #### AMM #### [facility] [address] [place] [address] Dr. Nilay Hodges (RBC) [Mass/Vol]34.3 g/vQDirbqj37.9-35.2The [facility]woodsComment on above:Performed By: #### AMM #### [facility] [address] [address] [address] Nilay HodgesV (RBC) [Entitic vol]86.9 uMJdyqqo99.0-94.0The [facility] on above:Performed By: #### AMM #### [facility] [address] [place] [address] Dr. Nilay Rendon #0.4 103/ulNormal0.3-0.8The [facility]woodsComment on above:Performed By: #### AMM #### [facility] [address] [place] [address] Dr. Nilay Grahamocytes/100 WBC (Bld)6.3 %Normal1.7-12.0The [facility] on above:Performed By: #### AMM #### [facility] [address] [place] [address] Dr. Nilay Coulter #2.7 103/ulNormal1.4-6.5The [facility]woodsComment on above:Performed By: #### AMM #### [facility] [address] [place] [address] Dr. Nilay Brownutrophils/100 WBC (Bld)46.7 %Aanheu77.0-75.0The [facility] on above:Performed By: #### AMM #### [facility] [address] [place] [address] Dr. Nilay Gutierrezlet mean volume (Bld) [Entitic vol]10.4 fLNormal9.5-13.5The [facility] on above:Performed By: #### AMM #### [facility] [address] [place] [address] Dr. Nilay GibbsPLT237 103/azEbodla467-198Rlb [facility]ment on above: Performed By: #### AMM #### [facility] [address] [place] [address] Dr. Nilay GibbsRBC4.66 106/ulCritically low4.70-6.10The [facility] HospitalComment on above:Performed By: #### AMM #### [facility] [address] [place] [address] Dr. Nilay GibbsWBC5.9 103/ulNormal4.0-11.0[facility] on above: Performed By: #### AMM #### [facility] [address] [place] [address] Dr. Nilay GibbsDRUG SCREEN RAPID (URINE)on 30-44-9734GEFMpgnzfmnXcuermUUYSWMQQ [facility] HospitalComsouth[facility] on above:Performed By: #### DRUGRPD #### [facility] [address] [place] [address] Dr. Nilay GibbsBARNegativeNoalNEGMarietta Memorial HospitalComsouthwest regional rehabilitation center on above: Performed By: #### DRUGRPD #### [facility] [address] [place] [address] Dr. Nilay GibbsBUPNegativeNormalNEGMarietta Memorial HospitalComsouthwest regional rehabilitation center on above: Performed By: #### DRUGRPD #### [facility] [address] [place] [address] Dr. Nilay GibbsBZOPositiveAbnormalNEGMarietta Memorial HospitalComsouthwest regional rehabilitation center on above: Performed By: #### DRUGRPD #### [facility] [address] [place] [address] Dr. Nilay GibbsCOCNegativeNormalBucyrus Community HospitalComsouthwest regional rehabilitation center on above: Performed By: #### DRUGRPD #### [facility] [address] [place] [address] Dr. Nilay PoonFort Hamilton HospitalComment on above: Result Comment: AMP (Amphetamine): 500ng/mL, BAR (Barbituates): 200 ng/mL, BZO (Benzodiazepines): 150 ng/mL, BUP (Buprenorphine): 10 ng/mL, ROQUE (Cocaine): 150 ng/mL, mAMP (Methamphetamine): 500 ng/mL, MTD (Methadone): 200 ng/mL, OPI (Opiates): 100 ng/mL, OXY (Oxycodone): 100 ng/mL, PCP (Phencyclidine): 25 ng/mL, PPX (Propoxyphene): 300 ng/mL, THC (Cannabinoids): 50 ng/mL, TCA (Trycyclic Antidepressants): 300 ng/mLPerformed By: #### DRUGRPD #### [facility] [address] [place] [address] Dr. Nilay GibbsDRUG CUT HEADERDRUG CLASS TEST SYSTEM CUT-OFF CONCENTRATIONS ARE FOLLOWS:NormalThe [facility]woodsComment on above:Performed By: #### DRUGRPD #### [facility] [address] [place] [address] Dr. Nilay GibbsmAMPNegativeNormalNEGATIVEBucyrus Community HospitalComment on above: Performed By: #### DRUGRPD #### [facility] [address] [place] [address] Dr. Nilay GibbsMTDNegativeNormalNEGATIVEBucyrus Community HospitalComment on above: Performed By: #### DRUGRPD #### [facility] [address] [place] [address] Dr. Nilay GuzmanINeelifiveNormalNEGATIVEBucyrus Community HospitalComment on above: Performed By: #### DRUGRPD #### [facility] [address] [place] [address] Dr. Nilay GibbsOXYNegativeNormalNEGATIVEBucyrus Community HospitalComment on above: Performed By: #### DRUGRPD #### [facility] [address] [place] [address] Dr. Nilay GibbsPCPNegativeNormalNEGATIVEBucyrus Community HospitalComment on above: Performed By: #### DRUGRPD #### [facility] [address] [place] [address] Dr. Nilay GibbsPPXNegativeNormalNEGATIVEBucyrus Community HospitalComment on above: Performed By: #### DRUGRPD #### [facility] [address] [place] [address] Dr. Nilay GibbsTCANegativeNormalNEGATIVEBucyrus Community HospitalComment on above: Performed By: #### DRUGRPD #### [facility] [address] [place] [address] Dr. Nilay JacquesCNegativeNormalNEGATIVEThe [facility]woodsComment on above: Performed By: #### DRUGRPD #### [facility] [address] [place] [address] Dr. Nilay ToroANOL (BLD ALC)on 57-60-9808YIC NOTENOTE: 80 mg/dl is the legal limit for a blood alcohol levelNoLancaster Municipal HospitalComment on above: Performed By: #### CMP #### [facility] [address] [place] [address] Dr. Nilay Talleythanol [Mass/Vol]336 mg/dLNoLancaster Municipal HospitalComment on above:Performed By: #### CMP #### [facility] [address] [place] [address] Dr. Nilay OglesbyF 14(COMP METB)on 27-93-2553Svufifl [Mass/Vol]4.2 g/dLNormal 3.4-5.0The [facility]woodsComment on above:Performed By: #### CMP #### [facility] [address] [place] [address] Dr. Nilay GibbsAlbumin/Globulin [Mass ratio]1.3 {ratio}NormalThe [facility]woodsComment on above:Performed By: #### CMP #### [facility] [address] [place] [address] Dr. Nilay Young [Catalytic activity/Vol]104 U/REsyzru31-364Gud [facility]woodsComment on above:Performed By: #### CMP #### [facility] [address] [place] [address] Dr. Nilay Childs [Catalytic activity/Vol]41 U/TAewazg30-61Kuy [facility]woodsComment on above:Performed By: #### CMP #### [facility] [address] [place] [address] Dr. Nilay Lopez gap [Moles/Vol]11.5 mmol/LNormalThe [facility] on above:Performed By: #### CMP #### [facility] [address] [address] [address] Nilay GibbsAST [Catalytic activity/Vol]37 U/HMrteci76-58Nrf [facility]woodsComment on above:Performed By: #### CMP #### [facility] [address] [address] [address] Nilay GibbsBilirubin [Mass/Vol]0.2 mg/dLNormal0.2-1.0The [facility] Comment on above:Performed By: #### CMP #### [facility] [address] [address] [address] Nilay GibbsCalcium [Mass/Vol]8.6 mg/dLNormal8.5-10.1The [facility] Comment on above:Performed By: #### CMP #### [facility] [address] [address] [address] Nilay GibbsChloride [Moles/Vol]97 mmol/LCritically fxe24-518Kpc [facility]woodsComment on above:Performed By: #### CMP #### [facility] [address] [address] [address] Nilay GibbsCO2 [Moles/Vol]26.0 mmol/DRcsbrz82.0-32.0The [facility] Comment on above:Performed By: #### CMP #### [facility] [address] [address] [address] Nilay GibbsCreatinine [Mass/Vol]1.47 mg/dLCritically high0.70-1.30The [facility]woodsComment on above:Performed By: #### CMP #### [facility] [address] [address] [address] Pemberton ChangEGFR-AF SWISS>60Normal>=60The [facility]woodsComment on above:Performed By: #### CMP #### [facility] [address] [address] [address] Nilay TalleyGFR-NON AF HISLZBVN56 mL/min/1.24l9Irpifmayan low>=60The [facility]woodsComment on above:Performed By: #### CMP #### [facility] [address] [address] [address] Nilay GibbsGlobulin (S) [Mass/Vol]3.2 g/dLNormCleveland Clinic Hillcrest HospitalComment on above:Performed By: #### CMP #### [facility] [address] [address] [address] Nilay GibbsGlucose [Mass/Vol]117 mg/dLCritically ooql92-521Jfs [facility]woodsComment on above:Performed By: #### CMP #### [facility] [address] [address] [address] Nilay GibbsPotassium [Moles/Vol]3.5 mmol/LNormal3.5-5.1The [facility] Comment on above:Performed By: #### CMP #### [facility] [address] [place] [address] Dr. Nilay GibbsProtein [Mass/Vol]7.4 g/dLNormal6.4-8.2The [facility] Comment on above:Performed By: #### CMP #### [facility] [address] [address] [address] Nilay GibbsSodium [Moles/Vol]131 mmol/LCritically uef165-851Fll [facility]woodsComment on above:Performed By: #### CMP #### [facility] [address] [place] [address] Dr. Nilay GibbsUrea nitrogen [Mass/Vol]14.0 mg/dLNormal7.0-18.0The [facility]woodsComment on above:Performed By: #### CMP #### [facility] [address] [address] [address] Nilay Faye nitrogen/Creatinine [Mass ratio]9.5 mg/mgNoalThFayette County Memorial HospitalComment on above:Performed By: #### CMP #### [facility] [address] [place] [address] Dr. Nilay HainesICYLATEon 82-31-2436TOJPCTVGRM<2.8Normal<=19.9The [facility]woodsComment on above:Performed By: #### AMM #### [facility] [address] [address] [address] Nil[facility] GibbsM[facility] Shoulder w/o Lefton 79-39-0608RUJ Shoulder w/o LeftHISTORY: Left posterior and lateral [...] and signed by Stephen Ware on 11/11/2021 0955NoalNoecu healthn [facility] Medical CenterActivated partial thromboplastin time (aPTT) in platelet poor plasma by coagulation aOrdered By: Kristal Goldberg on 60-18-8437eOEI Coag (PPP) [Time]34.7 s25.1-36.5FPremier Health Upper Valley Medical CenterAlbumin [Mass/volume] in Serum or PlasmaOrdered By: Kristal Goldberg on 38-58-0340Kuyvufz [Mass/Vol]4.1 g/dL3.2-5.5FPremier Health Upper Valley Medical CenterBasophils Auto (Bld) [#/Vol]Ordered By: Kristal Goldberg on 93-39-4572Iqldxboqh (Bld) [#/Vol]0.0 10*3/uL0.0-0.2[facility] CenterBasophils/100 WBC Auto (Bld) Ordered By: Kristal Goldberg on 72-20-3978Xylegtumh/100 WBC (Bld)0.3 %.[facility] CenterBilirubin Auto test strip Ql (U)Ordered By: Kristaljaylen Goldberg on 56-42-1890Nehukefwf Ql (U)NegativeNegativeLouis Stokes Cleveland Va Medical CenterBlood hemoglobin measurement (mass/volume)Ordered By: Kristal Goldberg on 20-64-0681Syjnqncvyz (Bld) [Mass/Vol]13.6 g/dL13.0-17.0[facility] CenterBlood leukocytes automated count (number/volume)Ordered By: Kristal Goldberg on 51-10-4884TXI (Bld) [#/Vol]5.7 10*3/uL4.5-11.0[facility] CenterCBC AUTO DIFFon 19-38-1331JDPN #0.0 103/ulNormal0.0-0.1 [facility]Comment on above:Performed By: #### AMM #### [facility] [address] [address] [address] Nilay GibbsBasophils/100 WBC (Bld)0.5 %Normal0.2-2.0[facility] Comment on above:Performed By: #### AMM #### [facility] [address] [address] [address] Nilay Wong #0.1 103/ulNormal0.0-0.7The [facility]woodsComment on above: Performed By: #### AMM #### [facility] [address] [address] [address] Nilay Talleyosinophils/100 WBC (Bld)1.6 %Normal0.9-7.0The [facility] Comment on above:Performed By: #### AMM #### [facility] [address] [address] [address] Nilay Talleyrythrocyte distribution width (RBC) [Ratio]14.0 %Iztmxp46.0-15.0 [facility] HospitalComment on above:Performed By: #### AMM #### [facility] [address] [place] [address] Dr. Nilay Ornelasatocrit (Bld) [Volume fraction]40.2 %Critically low42.0-54.0 The [facility] SouthwoodsComment on above:Performed By: #### AMM #### [facility] [address] [place] [address] Dr. Nilay GibbsHemoglobin (Bld) [Mass/Vol]13.7 g/dLCritically low14.0-18.0The [facility]woodsComment on above:Performed By: #### AMM #### [facility] [address] [place] [address] Dr. Nilay Ernst #0.01 10e3/ulNormal0.00-0.03The [facility]woodsComment on above:Performed By: #### AMM #### [facility] [address] [place] [address] Dr. Nilay Ernst %0.2 %Normal0.0-0.5The [facility] SouthwoodsComment on above: Performed By: #### AMM #### [facility] [address] [place] [address] Dr. Nilay Ellsworth #2.1 103/ulNormal1.2-3.8The [facility]woodsComsouthwest regional rehabilitation center on above:Performed By: #### AMM #### [facility] [address] [place] [address] Dr. Nilay Warrenhocytes/100 WBC (Bld)37.1 %Hudmua53.5-60.0The [facility] SouthwoodsComment on above:Performed By: #### AMM #### [facility] [address] [place] [address] Dr. Nilay KilpatrickUAL DIFF REQNONormalThe [facility]woodsComment on above: Performed By: #### AMM #### [facility] [address] [place] [address] Dr. Nilay Glasgow (RBC) [Entitic mass]30.1 ynTthrzr26.9-34.0The [facility] SouthwoodsComment on above:Performed By: #### AMM #### [facility] [address] [place] [address] Dr. Nilay Hodges (RBC) [Mass/Vol]34.1 g/oIBklrva93.9-35.2The [facility] SouthwoodsComment on above:Performed By: #### AMM #### [facility] [address] [place] [address] Dr. Nilay HodgesV (RBC) [Entitic vol]88.4 kNKcdshi86.0-94.0The [facility] SouthwoodsComment on above:Performed By: #### AMM #### [facility] [address] [place] [address] Dr. Nilay Rendon #0.4 103/ulNormal0.3-0.8The [facility] SouthwoodsComment on above:Performed By: #### AMM #### [facility] [address] [place] [address] Dr. Nilay Grahamocytes/100 WBC (Bld)7.2 %Normal1.7-12.0The [facility] Comment on above:Performed By: #### AMM #### [facility] [address] [place] [address] Dr. Nilay Coulter #3.1 103/ulNormal1.4-6.5The [facility] SouthwoodsComment on above:Performed By: #### AMM #### [facility] [address] [place] [address] Dr. Nilay Brownutrophils/100 WBC (Bld)53.4 %Nixudh89.0-75.0The [facility] SouthwoodsComment on above:Performed By: #### AMM #### [facility] [address] [place] [address] Dr. Nilay Gutierrezlet mean volume (Bld) [Entitic vol]10.3 fLNormal9.5-13.5The [facility] SouthwoodsComment on above:Performed By: #### AMM #### [facility] [address] [address] [address] Nilay GibbsPLT254 103/npHznesb089-821Kxa [facility] SouthwoodsComment on above: Performed By: #### AMM #### [facility] [address] [address] [address] Nilay GibbsRBC4.55 106/ulCritically low4.70-6.10The [facility] SouthwoodsComment on above:Performed By: #### AMM #### [facility] [address] [address] [address] Nilay GibbsWBC5.7 103/ulNormal4.0-11.0The [facility] SouthwoodsComment on above: Performed By: #### AMM #### [facility] [address] [place] [address] Dr. Nilay GibbsCT HEAD WO CONon 98-59-4977DZ HEAD WO CONCT head without contrast CLINICAL: [...] Electronically authenticated by: RUFINA MARIN Date: 2021-09-27 10:27NormalThe [facility] SouthwoodsCTA HEAD WO W CONon 31-89-6404GMP HEAD WO W CONCTA HEAD WITH CONTRAST: [...] Electronically authenticated by: NEL KING Date: 2021-09-27 12:19[facility] NECK WO W LENNYon 51-68-5190VBC NECK WO W CONCT ANGIOGRAPHY NECK: 09/27/2021 [...] Electronically authenticated by: NEL KING Date: 2021-09-27 12:06[facility] CenterCreatine kinase [Enzymatic activity/volume] in Serum or Plasma Ordered By: Kristal Goldberg on 42-32-1089HP [Catalytic activity/Vol]181 U/L 22-269[facility] CenterCreatinine and Glomerular filtration rate.predicted panel (S/P/Bld)Ordered By: Kristal Goldberg on 09-27-2021 Creatinine [Mass/Vol]1.36 mg/dL0.64-1.27[facility] Eosinophils Auto (Bld) [#/Vol]Ordered By: Kristal Goldberg on 09-27-2021 Eosinophils (Bld) [#/Vol]0.1 10*3/uL0.0-0.45[facility] Eosinophils/100 WBC Auto (Bld)Ordered By: Kristal Goldberg on 09-27-2021 Eosinophils/100 WBC (Bld)1.2 %.[facility] CenterErythrocyte distribution width Auto (RBC) [Ratio]Ordered By: Kristal Goldberg on 09-27-2021 Erythrocyte distribution width (RBC) [Ratio]14.5 %12.0-14.8[facility] CenterEstimated glomerular filtration rate (GFR) non- Ordered By: Kristal Goldberg on 63-36-2520NDQ/1.73 sq M.predicted among non- blacks MDRD (S/P/Bld) [Vol rate/Area]> 60 mL/MinLouis Stokes Cleveland Va Medical CenterGlobulin Calc (S) [Mass/Vol]Ordered By: Kristal Goldberg on 09-27-2021 Globulin (S) [Mass/Vol]2.4 g/dLLouis Stokes Cleveland Va Medical CenterHematocrit Auto (Bld) [Volume fraction]Ordered By: Kristal Goldberg on 30-58-4783Hwdpbaltrq (Bld) [Volume fraction]40.8 %38.8-50.0[facility] CenterKetones Auto test strip (U) [Mass/Vol]Ordered By: Kristal Goldberg on 07-78-9975Kfijbyl (U) [Mass/Vol]NegativeNegativeLouis Stokes Cleveland Va Medical CenterLaboratory - CoagulationOrdered By: Kristal Goldberg on 68-16-4025NK Coag (PPP) [Time]11.8 s 9.0-12.9[facility] CenterLaboratory - Hematology and Cell counts Ordered By: Kristal Goldberg on 09-94-1524Btbvcvmxp RBC/100 WBC (Bld) [Ratio]0.0 %0-0.5FPremier Health Upper Valley Medical CenterLymphocytes Auto (Bld) [#/Vol]Ordered By: Kristal Goldberg on 18-33-2243Uznnovhsdbm (Bld) [#/Vol]1.8 10*3/uL1.00-4.8 [facility] CenterLymphocytes/100 WBC Auto (Bld)Ordered By: Kristal Goldberg on 83-60-5429Xdurbsioomo/100 WBC (Bld)31.2 %.[facility] HospitalH Auto (RBC) [Entitic mass]Ordered By: Kristal Goldberg on 60-01-4783WOR (RBC) [Entitic mass]30.1 pg27.5-35.2FPremier Health Upper Valley Medical CenterMCHC Auto (RBC) [Mass/Vol]Ordered By: Kristal Goldberg on 86-00-7664DMXC (RBC) [Mass/Vol]33.4 g/dL32.5-35.6FPremier Health Upper Valley Medical CenterMCV Auto (RBC) [Entitic vol]Ordered By: Kristal Goldberg on 24-91-7581QRC (RBC) [Entitic vol]90.3 fL83.5-101[facility] CenterMonocytes Auto (Bld) [#/Vol] Ordered By: Kristal Goldberg on 87-31-2732Bbcpzzzkc (Bld) [#/Vol]0.3 10*3/uL 0.0-0.8[facility] CenterMonocytes/100 WBC Auto (Bld)Ordered By: Kristal Goldberg on 70-11-8345Bqzbtdakg/100 WBC (Bld)6.0 %.[facility] Medical CenterNeutrophils Auto (Bld) [#/Vol]Ordered By: Kristal Goldberg on 50-21-7652Aomvwsveetn (Bld) [#/Vol]3.5 10*3/uL1.8-7.7FPremier Health Upper Valley Medical CenterNeutrophils/100 WBC Auto (Bld)Ordered By: Kristal Goldberg on 09-27-2021 Neutrophils/100 WBC (Bld)61.3 %.[facility] CenterNo Panel InformationOrdered By: Kristal Goldberg on 76-87-5609Zbbedqqhn GFR ()> 60 mL/MinLouis Stokes Cleveland Va Medical CenterComment on above:GFR estimated reference range: According to KDOQI guidelines, <60 ml/min/1.73m2 is sufficient todiagnose a patient with chronic kidney disease.Pharmacy Creatinine Clearance (Chem94.06[facility] Medical CenterPROF CHEM 8 (BAS METB)on 64-43-1214Jjsce gap [Moles/Vol]10.0 mmol/LNormalBucyrus Community HospitalComment on above:Performed By: #### CMP #### [facility] [address] [place] [address] Dr. Nilay GibbsCalcium [Mass/Vol]9.4 mg/dLNormal8.5-10.1[facility] Comment on above:Performed By: #### CMP #### [facility] [address] [address] [address] Nilay GibbsChloride [Moles/Vol]103 mmol/ORidjkp44-507Bvc [facility] Comment on above:Performed By: #### CMP #### [facility] [address] [address] [address] Yilan ChangCO2 [Moles/Vol]27.6 mmol/DJhprce78.0-32.0The [facility] Comment on above:Performed By: #### CMP #### [facility] [address] [address] [address] Nilay GibbsCreatinine [Mass/Vol]1.39 mg/dLCritically high0.70-1.30The [facility] on above:Performed By: #### CMP #### [facility] [address] [address] [address] Nilay TalleyGFR-AF SWISS>60Normal>=60The [facility] on above:Performed By: #### CMP #### [facility] [address] [address] [address] Nilay TalleyGFR-NON AF UTJTVKZF83 mL/min/1.85d4Jbewfp>=60The [facility]Comment on above:Performed By: #### CMP #### [facility] [address] [address] [address] Nilay GibbsGlucose [Mass/Vol]115 mg/dLCritically waub28-886Ync [facility]Comment on above:Performed By: #### CMP #### [facility] [address] [address] [address] Nilay GibbsPotassium [Moles/Vol]3.6 mmol/LNormal3.5-5.1[facility] Comment on above:Performed By: #### CMP #### [facility] [address] [address] [address] Nilay GibbsSodium [Moles/Vol]137 mmol/PHwllpb638-911Udv [facility] Comment on above:Performed By: #### CMP #### [facility] [address] [address] [address] Nilay GibbsUrea nitrogen [Mass/Vol]17.0 mg/dLNormal7.0-18.0The [facility] on above:Performed By: #### CMP #### [facility] [address] [address] [address] Nilay GibbsUrea nitrogen/Creatinine [Mass ratio]12.2 mg/mgNoLancaster Municipal HospitalComment on above:Performed By: #### CMP #### [facility] [address] [place] [address] Dr. Nilay Kong 46-61-5246CJP Coag (PPP) [Relative time]0.99 {INR} NormalBucyrus Community HospitalComment on above:Performed By: #### PT, PTT #### [facility] [address] [place] [address] Dr. Nilay Lopes GUIDELINESSEE BELOWMercy Health Springfield Regional Medical CenterComment on above:Result Comment: DESIRED INR: 2.0 - 3.0 CONDITIONS NOT LISTED BELOW 2.5 - 3.5 FOR PROSTHETIC HEART VALVE REPLACEMENT 2.5 - 3.5 RECURRENT THROMBOSIS Performed By: #### PT, PTT #### [facility] [address] [place] [address] Dr. Nilay GibbsPT Coag (PPP) [Time]10.7 sNormal9.0-11.6The [facility] Comment on above:Performed By: #### PT, PTT #### [facility] [address] [place] [address] Dr. Nilay Robertson 61-46-5516dTUC Coag (Bld) [Time]29.1 kOmanjx52.3-36.2[facility] HospitalComment on above:Performed By: #### PT, PTT #### [facility] [address] [place] [address] Dr. Nilay Acosta mean volume Auto (Bld) [Entitic vol]Ordered By: Kristal Goldberg on 53-70-8389Jrlnyxwc mean volume (Bld) [Entitic vol]8.7 fL6.6-10.1 [facility] Medical CenterPlatelet poor plasma international normalized ratio (INR) by coagulation assay (relatOrdered By: Kristal Goldberg on 09-27-2021 INR Coag (PPP) [Relative time]1.1 {INR}[facility] CenterComment on above:INR Therapeutic Range A) Pre- and [...] Auto (Bld) [#/Vol]Ordered By: Kristal Goldberg on 31-17-9067Plbwpyajc (Bld) [#/Vol]240 10*3/sW063-507ObtxwosfeLouis Stokes Cleveland Va Medical CenterProtein Auto test strip (U) [Mass/Vol]Ordered By: Kristal Goldberg on 78-27-3924Smthqsz (U) [Mass/Vol]NegativeNegativeLouis Stokes Cleveland Va Medical CenterProtein [Mass/volume] in Serum or PlasmaOrdered By: Kristal Goldberg on 46-97-7913Bsqumfb [Mass/Vol] 6.5 g/dL6.1-7.9[facility] CenterRBC Auto (Bld) [#/Vol]Ordered By: Kristal Goldberg on 10-14-4270FAN (Bld) [#/Vol]4.52 10*6/uL3.90-5.60[facility] Hospitalerum or plasma alanine aminotransferase measurement without P-5'-P (enzymatic activiOrdered By: Kristal Goldberg on 63-85-7220IXN No additional P-5'-P [Catalytic activity/Vol]22 U/V90-93UopecwoxgOhioHealth Van Wert Hospitalerum or plasma albumin/globulin mass ratioOrdered By: Kristal Goldberg on 43-70-9655Flnqabp/Globulin [Mass ratio]1.7 {ratio}[facility] Hospitalerum or plasma alkaline phosphatase measurement (enzymatic activity/volume)Ordered By: Kristal Goldberg on 38-38-9770ZKP [Catalytic activity/Vol]72 U/E26-75UmoiuxcweOhioHealth Van Wert Hospitalerum or plasma aspartate aminotransferase measurement (enzymatic activity/volume)Ordered By: Kristal Goldberg on 07-36-7966POS [Catalytic activity/Vol]24 U/H67-00MpjoakxoyOhioHealth Van Wert Hospitalerum or plasma calcium measurement (mass/volume)Ordered By: Kristal Goldberg on 21-48-9113Ebbtldn [Mass/Vol]9.6 mg/dL8.2-10.2FLima City Hospitalerum or plasma chloride measurement (moles/volume) Ordered By: Kristal Goldberg on 77-95-6784Zriffyus [Moles/Vol]98 mmol/L95-114 [facility] Hospitalerum or plasma creatine kinase MB (CKMB)/total creatine kinase (CK) ratio by calculaOrdered By: Kristal Goldberg on 09-27-2021 CK.MB Calc [Catalytic fraction]1.7 %0.00-2.50[facility] Serum or plasma creatine kinase MB measurement (mass/volume)Ordered By: Kristal Goldberg on 38-71-7994FS.MB [Mass/Vol]3.1 ng/mL0.6-6.3FLima City Hospitalerum or plasma glucose measurement (mass/volume)Ordered By: Kristal Goldberg on 51-16-2562Sfdpany [Mass/Vol]94 mg/nL56-969IztfxpezdLouis [facility] CenterComment on above:ADA recommended reference range Random Glucose [...] potassium measurement (moles/volume)Ordered By: Kristal Goldberg on 17-28-8466Wfoizekai [Moles/Vol]3.9 mmol/L3.5-5.1FLima City Hospitalerum or plasma sodium measurement (moles/volume)Ordered By: Kristal Goldberg on 80-40-1712Rmhyfu [Moles/Vol]135 mmol/D000-079QiiobdhlnOhioHealth Van Wert Hospitalerum or plasma total bilirubin measurement (mass/volume) Ordered By: Kristal Goldberg on 17-45-8188Flyjiulpx [Mass/Vol]0.8 mg/dL0.3-1.2 [facility] Hospitalerum or plasma total carbon dioxide measurement (moles/volume)Ordered By: Kristal Goldberg on 50-33-7683LO3 [Moles/Vol]24.8 mmol/L22.0-30.0[facility] Hospitalerum or plasma urea nitrogen measurement (mass/volume)Ordered By: Kristal Goldberg on 09-27-2021 Urea nitrogen [Mass/Vol]13 mg/dL9-[facility] CenterTROPONIN, HIGH SENSITIVITYon 05-60-2542QQDPME6.5 pg/mLNormal4.0-76.1The [facility] Comment on above:Result Comment: CUT-OFF POINTS HAVE BEEN ESTABLISHED BASED ON THE FOURTH UNIVERSAL DEFINITIONS OF MYOCARDIAL INFARCTION. THE UPPER REFERENCE LIMIT (URL) OF TROPONIN, DEFINED THE 99TH PERCENTILE OF cTnI DISTRIBUTION IN A REFERENCE POPULATION, HAS BEEN CONFIRMED THE DECISION THRESHOLD FOR [place] DIAGNOSIS.Performed By: #### CMP #### [facility] [address] [address] [address] Nilay Mcguire I.cardiac [Mass/volume] in Serum or Plasma by High sensitivity methodOrdered By: Kristal Goldberg on 87-99-0309Iyrbnoov I.cardiac High sensitivity method [Mass/Vol]< 3 pg/mL0[facility] Urine appearanceOrdered By: Kristal Goldberg on 71-02-4283Jrtnbuedzw (U)Clear ClearLouis Stokes Cleveland Va Medical CenterUrine colorOrdered By: Kristal Goldberg on 97-08-8054Eegyl (U)YellowYellowLouis Stokes Cleveland Va Medical CenterUrine glucose measurement by automated test strip (mass/volume)Ordered By: Kristal Goldberg on 90-35-8725Ywvvlvr Auto test strip (U) [Mass/Vol]Normal mg/dLNormalLouis Stokes Cleveland Va Medical CenterUrine hemoglobin detection by automated test stripOrdered By: Kristal Goldberg on 14-18-9083Mrfqaptphc Auto test strip Ql (U)Negative NegativeLouis Stokes Cleveland Va Medical CenterUrine leukocyte esterase detection by automated test stripOrdered By: Kristal Lermadelvin on 83-55-6515Ofofwxxeu esterase Auto test strip Ql (U)NegativeNegOhioHealth Riverside Methodist HospitalUrine nitrite detection by automated test stripOrdered By: Kristal Goldberg on 69-11-8511Ydeusng Auto test strip Ql (U)NegativeNegativeLouis Stokes Cleveland Va Medical CenterUrobilinogen Auto test strip (U) [Mass/Vol]Ordered By: Kristal Goldberg on 34-40-3244Msthhgkcqyfk (U) [Mass/Vol]Normal mg/dLNormalLouis Stokes [facility] Va Medical CenterpH Auto test strip (U)Ordered By: Kristal Vergaraebony on 42-80-0744fS (U)1.005 [pH]1.001-1.030[facility] Medical CenterpH (U)5.5 [pH]5.0-9.0[facility] CenterCT LUMBAR SPINE WO CONTRASTon 81-46-7705NF LUMBAR SPINE WO CONTRASTEXAMINATION: CT OF THE [...] Signed by: Mike Felipe MD 07/12/18 Final resultNormalMerWaterbury HospitalCT THORACIC SPINE WO CONTRASTon 90-70-2175XT THORACIC SPINE WO CONTRASTEXAMINATION: CT OF THE [...] Signed by: Mike Felipe MD 07/12/18 Final resultNoSamaritan Hospital Vital Signs Date TimeVital SignValuePerforming PkjfvxjekOsevsumh44-67-8141 12:46-0400 Diastolic blood aglagdsb13 mm[Hg]Chair Cardozoy Work Phone: [facility]09-16-2025 12:46-0400Heart rate63 /min Chair Eric Work Phone: [facility]09-16-2025 12:46-0400Respiratory rate 18 /minChair [place]ras[place] Work Phone: [facility]09-16-2025 12:46-9077EnJ6% (BldA) [Mass fraction]98 %Chair Romero Work Phone: [facility]09-16-2025 12:46-0400Systolic blood uaiunjxa99 mm[Hg]Chair Cardozoy Work Phone: [facility]09-16-2025 11:25-0400Body temperature 97.9 [degF]Chair Eric Work Phone: [facility]09-09-2025 09:35-0400Body qhxosr875 cm Marina MARINELLI Work Phone: noCitizens Memorial HealthcareSeupyfsluh91-27-4038 09:35-0400Body mass index (BMI) [Ratio]28.99 kg/i4LkvjjMarina MARINELLI Work Phone: noCitizens Memorial HealthcareOgsyigglec68-43-8218 09:35-0400Body bkzpoj038.42 kgMarina MARINELLI Work Phone: [address] [address]Uytfaxahmh02-71-8332 09:35-0400Diastolic blood mm[Hg]Marina Hemmer PA Work Phone: [facility] CenterNfhsancgkh65-97-1445 09:35-0400Heart rate65 /min Marina Hemmer PA Work Phone: BRCitizens Memorial HealthcareEpttumujye49-93-2456 09:35-0400Respiratory rate16 /minKaren Hemmer PA Work Phone: [facility] CenterQpmedndqrv53-91-1984 09:35-6934TxX2% (BldA) [Mass fraction]98 %Marina Hemmer PA Work Phone: [facility] CenterZeecsnusjv67-45-9118 09:35-0400Systolic blood lrdtgnwu380 mm[Hg]Marina Hemmer PA Work Phone: [facility] CenterRitphyjrrc53-05-9155 13:03-0400Body xrlpwa088 cm Marina Hemmer PA Work Phone: [facility] CenterYkmqbdcwuc35-09-7525 13:03-0400Body mass index (BMI) [Ratio]26.71 kg/r3Xzpre Hemmer PA Work Phone: [facility] CenterEqwisrdocm53-76-3400 13:03-0400Body jhqcca48.35 kgKaren Hemmer PA Work Phone: [facility] CenterCipjknotyy53-55-4381 13:03-0400Diastolic blood danlgwim04 mm[Hg]Marina Hemmer PA Work Phone: [facility] CenterUoqfatvuvp29-90-6261 13:03-0400Heart lyqt367 /min Marina Hemmer PA Work Phone: [facility] CenterSwjtmdbicq06-69-9303 13:03-2817MoW8% (BldA) [Mass fraction]97 %Marina Hemmer PA Work Phone: [facility] CenterGsxcsmsjhb65-61-9999 13:03-0400Systolic blood mm[Hg]Marina Hemmer PA Work Phone: [facility] CenterBhezhaigox15-42-5700 11:00-0400Body ppceio991 cm Marina Hemmer PA Work Phone: noCitizens Memorial HealthcareVjgfskylsf25-36-1753 11:00-0400Body mass index (BMI) [Ratio]28.22 kg/u1Rzrjd Hemmer PA Work Phone: [facility] CenterUirqwchtgf35-67-3885 11:00-0400Body bykgwd63.7 kg Marina Hemmer PA Work Phone: [facility] CenterYanvntotvp37-74-8085 11:00-0400Diastolic blood rugoqfvl062 mm[Hg]Marina Hemmer PA Work Phone: [facility] CenterWptifdugff50-73-5177 11:00-0400Heart rate83 /min Marina Hemmer PA Work Phone: [facility] CenterUozyriubds58-20-3330 11:00-0400Respiratory rate18 /minKaren Hemmer PA Work Phone: [facility] CenterSdxrspxrgd03-59-7962 11:00-0619BoY8% (BldA) [Mass fraction]98 %Marina Hemmer PA Work Phone: [facility] CenterEbuuenqrqx67-63-3698 11:00-0400Systolic blood mm[Hg]Marina Hemmer PA Work Phone: [facility] CenterXxzvefqnal15-65-0982 10:02-0500Body ovscux701 cm Marina Hemmer PA Work Phone: [facility] CenterFcqznqyyhw28-25-7172 10:02-0500Body mass index (BMI) [Ratio]29.99 kg/u5Hxlfc Hemmer PA Work Phone: [facility] CenterErenfcipji97-18-1379 10:02-0500Body ijukdx936.96 kgKaren Hemmer PA Work Phone: [facility] CenterMfiwoekoap40-03-1834 10:02-0500Diastolic blood bmudvsal765 mm[Hg]Marina Hemmer PA Work Phone: [facility] CenterHshqijvgme72-02-7385 10:02-0500Heart rate87 /min Marina Hemmer PA Work Phone: [facility] CenterFdewoqhfec42-77-3229 10:02-0500Respiratory rate16 /minKaren Hemmer PA Work Phone: [facility] CenterEwhmggajfe03-91-2572 10:02-3408OaM1% (BldA) [Mass fraction]98 %Marina Hemmer PA Work Phone: [facility] CenterXggbwzqasl30-13-7079 10:02-0500Systolic blood mm[Hg]Marina Hemmer PA Work Phone: 1(503)538-[address] [place], [place] [address]Hvrfkgwpqq03-41-0879 08:48-0500Body glemiu758 cm Marina Hemmer PA Work Phone: 1(425)802-[address] [place], [place] [address]Evfpeijiqm08-90-1411 08:48-0500Body mass index (BMI) [Ratio]31.35 kg/g1Ibtgf Hemmer PA Work Phone: [facility] CenterLglklmapad85-50-3001 08:48-0500Body evmnkg841.77 kgKaren Hemmer PA Work Phone: 1(887)365-[address] [place], [place] [address]Jjyscjqadd25-62-5972 08:48-0500Diastolic blood lhyrwqjh444 mm[Hg]Marina Hemmer PA Work Phone: 1(195)[facility]-[address] [place], [place] [address]Pmhpadirnk69-08-4388 08:48-0500Heart rate87 /min Marina Hemmer PA Work Phone: [facility] CenterKarlzpufmr39-29-2755 08:48-0500Respiratory rate17 /minKaren Hemmer PA Work Phone: [facility] CenterGjscmwkinx03-30-3964 08:48-4212TiN0% (BldA) [Mass fraction]98 %Marina Hemmer PA Work Phone: 1(091)118-[address] [place], [place] [address]Oegbtgzwks21-01-3745 08:48-0500Systolic blood mm[Hg]Marina Hemmer PA Work Phone: 1(512)497-[address] [place], [place] [address]Kqyctexzxa32-71-2730 08:12-0500Body cm Delmy Boyle MD Work Phone: [facility]11-05-2024 08:12-0500Body mass index (BMI) [Ratio]30.39 kg/x6RxqefkDelmy Boyle MD Work Phone: [facility]11-05-2024 08:12-0500Body eyuhru590.4 kgDelmy Boyle MD Work Phone: [facility]11-05-2024 08:12-0500Diastolic blood infmizkn30 mm[Hg]Delmy Boyle MD Work Phone: [facility]11-05-2024 08:12-0500Heart rate84 /min Delmy Boyle MD Work Phone: [facility]11-05-2024 08:12-0500Respiratory rate 18 /minDelmy Boyle MD Work Phone: [facility]11-05-2024 08:12-0500Systolic blood ositdfwe531 mm[Hg]Delmy Boyle MD Work Phone: [facility]06-23-2024 12:40-0400Body iifmbz267.5 cmMD Rugchago Ketan Work Phone: 1(652)174-[address] [place], [place] 7510306-23-2024 12:40-0400 Body mass index (BMI) [Ratio]31.6 kg/m2MD Rugchago Lamar Work Phone: 1(855)080-[address] [place], [place] 7510306-23-2024 12:40-0400 Body rzpsjrnrnoz74.6 [degF]MD Leydi Aceves Work Phone: 1(492)503-[address] [place], [place] 7510306-23-2024 12:40-0400 Body .81 kgMD Rugchago Lamar Work Phone: 1(643)859-[address] [place], [place] 7510306-23-2024 12:40-0400 Heart rate84 /minMD Rugchago Ketan Work Phone: 1(090)055-[address] [place], [place] 7510306-23-2024 12:40-0400 Respiratory rate18 /min Rugchago Ketan Work Phone: 1(909)771-[address] [place], [place] 4404906-23-2024 12:40-0400 SaO2% (BldA) [Mass fraction]97 %MD Leydi Aceves Work Phone: [facility]04-25-2024 14:34-0400 Body mass index (BMI) [Ratio]29.92 kg/x7KhyuvtDelmy Boyle MD Work Phone: [facility]04-25-2024 14:34-0400Body ioudsv382.69 kgDelmy Boyle MD Work Phone: [facility]04-25-2024 14:34-0400Diastolic blood gpjxtner76 mm[Hg]Delmy Boyle MD Work Phone: [facility]04-25-2024 14:34-0400Heart rate89 /min Delmy Boyle MD Work Phone: [facility]04-25-2024 14:34-0400Respiratory rate 18 /minDelmy Boyle MD Work Phone: [facility]04-25-2024 14:34-7963HsS0% (BldA) [Mass fraction]100 %Delmy Boyle MD Work Phone: [facility]04-25-2024 14:34-0400Systolic blood mm[Hg]Delmy Boyle MD Work Phone: [facility]11-03-2022 11:34-0400Body .79 kgDelmy Boyle MD Work Phone: [facility]11-03-2022 11:34-0400Diastolic blood tyhrbyve28 mm[Hg]Delmy Boyle MD Work Phone: [facility]11-03-2022 11:34-0400Heart rate65 /min Delmy Boyle MD Work Phone: [facility]11-03-2022 11:34-0400Systolic blood jkyrgwxm663 mm[Hg]Delmy Boyle MD Work Phone: [facility]10-12-2022 15:30-0400Diastolic blood qkvorgba41 mm[Hg]MD Leydi Aceves Work Phone: 1(419)[address] [place], [place] 9600110-12-2022 15:30-0400 Heart rate70 /minMD Rugen Ketan Work Phone: 1(920)[address] [place], [place] 9600110-12-2022 15:30-0400 Respiratory rate16 /minMD Rugen Ketan Work Phone: [phone])[address] [place], [place] 9600110-12-2022 15:30-0400 SaO2% (BldA) [Mass fraction]98 %MD Leydi Aceves Work Phone: [phone])[address] [place], [place] 9600110-12-2022 15:30-0400 Systolic blood irmjykrf417 mm[Hg]MD Leydi Aceves Work Phone: 1(927)[address] [place], [place] 9600110-12-2022 07:30-0400 Body nbbudywmcar02 [degF]MD Leydi Aceves Work Phone: 1(421)[address] [place], [place] 9600110-10-2022 15:45-0400 Body qemayo986.5 cmMD Rugen Ketan Work Phone: 1(793)[address] [place], [place] 9600110-10-2022 08:56-0400 Body wkevnq23.79 kgMD Rugen Lamar Work Phone: 1(679)[address] [place], [place] 96[address]107-30-2022 21:38-0400 Heart rate68 /minMD Rugen Ketan Work Phone: 1(235)[address] [place], [place] 96[address]107-30-2022 21:30-0400 Diastolic blood gnkiskjh89 mm[Hg]MD Leydi Aceves Work Phone: 1(321)[address] [place], [place] 9600107-30-2022 21:30-0400 Respiratory rate20 /minMD Rugchago Lamar Work Phone: 1([phone] [place], [place] 9600107-30-2022 21:30-0400 SaO2% (BldA) [Mass fraction]100 %MD Leydi Aceves Work Phone: 1(571)[address] [place], [place] 96[address]107-30-2022 21:30-0400 Systolic blood xiawqbnl136 mm[Hg]MD Leydi Aceves Work Phone: 1([phone] [place] [address] Dfpmon59-94-4716 18:31-0400 Body lgzamf516.5 cmMD Rugchago Ketan Work Phone: [facility]07-30-2022 18:31-0400 Body tsuzygdlaaz20 [degF] Leydi Aceves Work Phone: [facility]07-30-2022 18:31-0400 Body .79 kgMD Rugchago Ketan Work Phone: [facility] Encounters Encounter DateEncounter TypeCare ProviderFacilityStart: 12-26-2024 End: 95-06-2439ypvhrjhlktUYEFVL D MANZONFacility:[facility]tart: 12-25-2024 End: 99-91-0784jczvoiyuztVWFLQ MABALAY ALDAFacility:[facility] Start: 12-12-2024 End: 77-25-5817nvsavwahtdSYTSL MABALAY ALDAFacility:[facility] Start: 12-11-2024 End: 38-30-8911jhgtcdvbwvSJLKT MABALAY ALDAFacility:[facility] Start: 12-05-2024 End: 11-13-7141OrgcwmLwbgq M Hemmer PA Work Phone: [facility] MedinceComment on above:Rheumatoid arthritis involving multiple sites with positive rheumatoid factor (HCC)Start: 11-28-2024 End: 25-43-3908Hisgpkccx Result EncounterGeneric External Data ProviderNOMS External Department UnsolicitedStart: 11-28-2024 End: 46-86-5024Jpfryijdy Result EncounterGeneric External Data ProviderNOMS External Department UnsolicitedStart: 11-28-2024 End: 19-47-7415kldfqgmvqoQOKVQ MABALAY ALDAFacility:[facility] Start: 11-27-2024 End: 87-85-9846sdhlxlibkbVFRGO MABALAY ALDAFacility:[facility] Start: 11-27-2024 End: 33-88-8040Ffnmszvxe Result EncounterGeneric External Data ProviderNOMS External Department UnsolicitedStart: 11-27-2024 End: 68-65-4667Krnlohjaq Result EncounterGeneric External Data ProviderNOMS External Department UnsolicitedStart: 11-14-2024 End: 25-19-0589uitybkieumOpwte 9 Eric Work Phone: Hematology/OncologyComment on above: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)Start: 11-13-2024 End: 01-28-3700efvgizjpwxKLZTG MABALAY ALDAFacility:[facility] Start: 11-13-2024 End: 21-40-0684Bahiahuol Result EncounterGeneric External Data ProviderNOMS External Department UnsolicitedStart: 11-13-2024 End: 17-05-1192Uhinlujpd Result EncounterGeneric External Data ProviderNOMS External Department UnsolicitedStart: 11-13-2024 End: 47-69-4452Hkcavtatu encounterLesia Covarrubias RNHematology/OncologyComment on above:Patient Update; Results (Uric Acid )Start: 11-08-2024 End: 21-25-3215Xoalnyuix encounterLesia Covarrubias RNHematology/OncologyComment on above:Orders (Krystexxa Orders)Start: 11-07-2024 End: 72-38-6683Vnaufxbry MARINELLI Work Phone: [facility] MedinceStart: 11-07-2024 End: 16-99-9852Lcetupbry MARINELLI Work Phone: [facility] MedinceStart: 11-07-2024 End: 29-79-9193Bpmzht outpatient visit 15 minutesMarina MARINELLI Work Phone: [facility] MedinceComment on above:Essential hypertension (Primary Dx); Rheumatoid arthritis involving multiple sites with positive rheumatoid factor (HCC)Start: 11-07-2024 End: 71-11-7620rqyejhjwlaXQNNM M HEMMERNot AvailableStart: 11-03-2024 End: 67-08-1430znrpdukpwzAhbpfnRafaela Boyle MD Work Phone: RheumatologyStart: 11-03-2024 End: 17-38-6697Uxrfbog encounter procedureDelmy Boyle MD Work Phone: RheumatologyComment on above:ReplyStart: 11-02-2024 End: 68-73-0064ozuyytjykzHrnxru D Manzon MD Work Phone: RheumatologyStart: 11-02-2024 End: 57-30-1134Svsrkta encounter procedureDelmy Boyle MD Work Phone: RheumatologyComment on above:MedicationStart: 10-10-2024 End: 23-87-9617xzxwcefkzdCEECFQ D MANZONFacility:[facility] HospitalStart: 10-10-2024 End: 48-69-8271Dcodiouhb Result EncounterGeneric External Data ProviderNOMS External Department UnsolicitedStart: 10-10-2024 End: 62-86-7597Sqntqxygl Result EncounterGeneric External Data ProviderNOMS External Department UnsolicitedStart: 10-03-2024 End: 12-05-3050Kusnbteic encounterDelmy Boyle MD Work Phone: RheumatologyComment on above:Insurance Authorization ([employer])Start: 10-03-2024 End: 64-63-0659oypkyyhzqcJIKTSR D MANZONFacility:[facility] Systemtart: 10-02-2024 End: 35-81-1179Jxciacoge Result EncounterGeneric External Data ProviderNOMS External Department UnsolicitedStart: 10-02-2024 End: 21-83-0267Bwuwwutyk Result EncounterGeneric External Data ProviderNOMS External Department UnsolicitedStart: 10-02-2024 End: 69-28-2409FafzyrCwygi M Hemmer PA Work Phone: [facility] MedinceComment on above:Rheumatoid arthritis involving multiple sites with positive rheumatoid factor (HCC)Start: 09-16-2024 End: 58-27-8550QfwxsiEgobq M Alda MD Work Phone: [facility] CI FMComment on above:Rheumatoid arthritis involving multiple sites with positive rheumatoid factor (HCC)Start: 09-13-2024 End: 28-05-1575Hxeydl outpatient visit 15 minutesMarina Rees PA Work Phone: [facility] CI FMComment on above:Open wound of left lower leg, subsequent encounter (Primary Dx); Encounter for removal of suturesStart: 09-13-2024 End: 33-46-3224bxtzgymdtuVAECZRomaine Meyer AvailableStart: 09-04-2024 End: 86-33-6992TjzixqGshwp M Hemmer PA Work Phone: [facility] CI FMComment on above:Rheumatoid arthritis involving multiple sites with positive rheumatoid factor (HCC)Start: 08-07-2024 End: 72-53-1919Dkqfis Kristy Rees PA Work Phone: [facility] CI FMStart: 08-07-2024 End: 85-79-0630Ocoeiibry MARINELLI Work Phone: [facility] CI FMStart: 08-07-2024 End: 84-77-3362Ocjhba outpatient visit 25 minutesMarina MARINELLI Work Phone: NOMS CI FMComment on above:Rheumatoid arthritis involving multiple sites with positive rheumatoid factor (CMS/HCC) (Primary Dx); Other chronic pain; Essential hypertension (CMS/HCC)Start: 08-07-2024 End: 77-20-3931tzmdlnkvdiYCENXRomaine Meyer AvailableStart: 07-30-2024 End: 99-78-5826Yarbtwmwc Result EncounterGeneric External Data ProviderNOMS External Department UnsolicitedStart: 07-30-2024 End: 88-66-2783Clzitmtkp Result EncounterGeneric External Data ProviderNOMS External Department UnsolicitedStart: 07-29-2024 End: 96-31-0457Jexfsxvzz Result EncounterGeneric External Data ProviderNOMS External Department UnsolicitedStart: 07-29-2024 End: 21-26-1386Kvxbdxtct Result EncounterGeneric External Data ProviderNOMS External Department UnsolicitedStart: 07-26-2024 End: 77-72-9260UhfhjtQqhsq M Hemmer PA Work Phone: NOMS CI FMComment on above:Rheumatoid arthritis involving multiple sites with positive rheumatoid factor (CMS/HCC)Start: 07-11-2024 End: 71-17-6107LsbajdHtauo M Hemmer PA Work Phone: [facility] CI FMComment on above:Rheumatoid arthritis involving multiple sites with positive rheumatoid factor (CMS/HCC)Start: 07-07-2024 End: 70-90-6771LpcxqaZkwfa M Hemmer PA Work Phone: [facility] CI FMComment on above:Rheumatoid arthritis involving multiple sites with positive rheumatoid factor (CMS/HCC)Start: 07-03-2024 End: 62-50-7620JonafoZvadf M Hemmer PA Work Phone: [facility] CI FMComment on above:Rheumatoid arthritis involving multiple sites with positive rheumatoid factor (CMS/HCC)Start: 06-28-2024 End: 08-14-4042FjhuxcQrncl M Alda MD Work Phone: [facility] CI FMComment on above:Rheumatoid arthritis involving multiple sites with positive rheumatoid factor (CMS/HCC)Start: 06-26-2024 End: 15-49-4671XgysyiNyrbk M Hemmer PA Work Phone: NOMS POPULATION HEALTHComment on above:Rheumatoid arthritis involving multiple sites with positive rheumatoid factor (CMS/HCC)Med RefillStart: 06-19-2024 End: 64-22-2144XqtlexMzkvb M Hemmer PA Work Phone: [facility] CI FMComment on above:Rheumatoid arthritis involving multiple sites with positive rheumatoid factor (CMS/HCC)Start: 06-12-2024 End: 98-88-0421UtlddvIezww M Hemmer PA Work Phone: [facility] CI FMComment on above:Rheumatoid arthritis involving multiple sites with positive rheumatoid factor (CMS/HCC)Start: 06-05-2024 End: 08-65-5229IofhtmJhyrp M Hemmer PA Work Phone: [facility] CI FMComment on above:Rheumatoid arthritis involving multiple sites with positive rheumatoid factor (CMS/HCC)Start: 05-30-2024 End: 75-62-2860NprksgDrfpt M Alda MD Work Phone: [facility] CI FMComment on above:Rheumatoid arthritis involving multiple sites with positive rheumatoid factor (CMS/HCC)Start: 05-29-2024 End: 61-46-3931CkkioeCqiwa M Hemmer PA Work Phone: [facility] CI FMComment on above:Rheumatoid arthritis involving multiple sites with positive rheumatoid factor (CMS/HCC)Start: 05-18-2024 End: 17-10-4988Rcvzun Kristy MARINELLI Work Phone: [facility] CI FMStart: 05-18-2024 End: 34-01-9322Uvrrhq Kristy Rees PA Work Phone: [facility] CI FMStart: 05-18-2024 End: 20-82-8820Vmkbygflv Result Augustine MARINELLI Work Phone: [facility]S External Department UnsolicitedStart: 05-18-2024 End: 51-13-9242dgoglcaikzHWIWDRomaine Meyer AvailableStart: 05-10-2024 End: 24-65-1598AnpvriQjajd M Hemmer PA Work Phone: [facility] CI FMComment on above:Abscess of right index fingerStart: 05-02-2024 End: 32-72-8584SsbzeqBlssl M Alda MD Work Phone: [facility] CI FMComment on above:Rheumatoid arthritis involving multiple sites with positive rheumatoid factor (CMS/HCC)Start: 04-25-2024 End: 90-48-9170DwkbbbGefmd M Hemmer PA Work Phone: [facility] CI FMComment on above:Abscess of right index fingerStart: 04-20-2024 End: 09-31-3174Qqzvew Kristy MARINELLI Work Phone: [facility] CI FMStart: 04-20-2024 End: 69-31-8522Mpvuyn flowsheetMarina MARINELLI Work Phone: [facility] CI FMStart: 04-20-2024 End: 50-34-2176Tndnha outpatient visit 25 minutesMarina Rees PA Work Phone: N[facility] CI FMComment on above:Essential hypertension (CMS/HCC) (Primary Dx); Abscess of right index fingerStart: 04-20-2024 End: 82-66-2662ojbayqotwgVZHSA M HEMMERNot AvailableStart: 02-02-2024 End: 71-28-4664MakunzZfokpNargis MARINELLI Work Phone: [facility] CI FMComment on above:Rheumatoid arthritis involving multiple sites with positive rheumatoid factor (CMS/HCC)Start: 01-25-2024 End: 76-04-2995EysyxoUnjujNargis MARINELLI Work Phone: [facility] CI FMComment on above:Rheumatoid arthritis involving multiple sites with positive rheumatoid factor (CMS/HCC)Start: 01-21-2024 End: 37-70-8899Mctyzj outpatient visit 25 minutesMarina MARINELLI Work Phone: [facility] CI FMComment on above:Rheumatoid arthritis involving multiple sites with positive rheumatoid factor (CMS/HCC) (Primary Dx); Essential hypertension (CMS/HCC)Start: 01-21-2024 End: 81-39-3688hthmfgzkiyCLCWR M HEMMERNot AvailableStart: 01-18-2024 End: 15-54-6739Tawpsrcak encounterLeydi Aceves MD Work Phone: [facility] CI FMStart: 01-07-2024 End: 79-85-1745PcmfplXrfucNargis MARINELLI Work Phone: [facility] CI FMComment on above:Rheumatoid arthritis involving multiple sites with positive rheumatoid factor (CMS/HCC)Start: 01-04-2024 End: 71-94-9793Zwktlnhoo Result EncounterGeneric External Data ProviderNOMS External Department UnsolicitedStart: 01-04-2024 End: 90-58-5265Ufycwyvnr Result EncounterGeneric External Data ProviderNOMS External Department UnsolicitedStart: 01-04-2024 End: 23-35-7993Mmofvzpzs encounterDelmy Boyle MD Work Phone: RheumatologyStart: 01-04-2024 End: 76-26-0420Tyeoplxrae hospital visit by physicianXr [facility] Work Phone: [facility] Radiology GeneralComment on above: 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]Start: 01-04-2024 End: 86-55-7607ynyjjchirkPEVWMJ D MANZONFacility:[facility] Hospitaltart: 01-04-2024 End: 38-31-5965Bjejbkw encounter procedureDelmy Boyle MD Work Phone: [facility] hospitaltologyComment on above:Chronic tophaceous gout (Primary Dx); Stage 3 chronic kidney disease, unspecified whether stage 3a or 3b CKD (HCC); Encounter for long-term (current) use of medications; Other secondary osteoarthritis of multiple sitesStart: 12-30-2023 End: 15-04-2397Nlmgavqda Result EncounterGeneric External Data ProviderNOMS External Department UnsolicitedStart: 12-30-2023 End: 96-43-4008Acjdhrshn Result EncounterGeneric External Data ProviderNOMS External Department UnsolicitedStart: 12-10-2023 End: 28-41-4621ZpidiyJhjtmNargis MARINELLI Work Phone: [facility] CI FMComment on above:Rheumatoid arthritis involving multiple sites with positive rheumatoid factor (CMS/HCC)Start: 12-07-2023 End: 75-86-5501RcpwzgZqvvz M Alda MD Work Phone: [facility] CI FMComment on above:AnxietyStart: 11-11-2023 End: 47-89-2574HbbjwxYfbzn M Alda MD Work Phone: [facility] CI FMComment on above:Rheumatoid arthritis involving multiple sites with positive rheumatoid factor (CMS/HCC)Start: 11-08-2023 End: 53-52-1001RtlegcIfgri M Alda MD Work Phone: NOTU CI FMComment on above:AnxietyStart: 08-22-2023 End: 76-78-2613itzczmkjrnQY Rugen M Alda Work Phone: [facility] Work Phone: Start: 08-22-2023 End: 81-03-5218Vdajlna encounter procedureMD Leydi Aceves Work Phone: [facility] [place] Work Phone: Start: 42-57-8258OvymeiXbhhxm D Manzon MD Work Phone: RheumatologyComment on above:Refill RequestStart: 47-79-1176Iopsxhjnns RecurringMD Leydi Aceves Work Phone: [facility] CredibleStart: 77-89-4138mqrvdbzqidTlwovrrjvau AbdelazizFacility:[facility]tart: 75-73-9225ztpkwuywmoIcewlj D Manzon MD Work Phone: RheumatologyStart: 04-96-1590Bvtjqji encounter procedureDelmy Boyle MD Work Phone: RheumatologyComment on above:Flare upStart: 07-05-2023 RefillDelmy Boyle MD Work Phone: RheumatologyComment on above:Refill RequestStart: 06-24-2023 End: 65-39-0792Dhygtjg encounter procedureDelmy Boyle MD Work Phone: RheumatologyComment on above:Chronic tophaceous gout (Primary Dx); Encounter for long-term (current) use of medications; Stage 3 chronic kidney disease, unspecified whether stage 3a or 3b CKD (HCC); Idiopathic chronic gout of multiple sites with tophusStart: 05-09-2023 End: 01-35-2662dpzwyrcloeZcusahdlqgj AbdelazizFacility:[facility]tart: 99-74-1389GzwnbpNuujl M Alda MD Work Phone: NOQW CI FMStart: 02-24-2023 End: 57-28-3436Etnirbabc department patient visitLadi LedesmaenFacility:[facility] Start: 02-19-2023 End: 19-17-6782xttxptgfihABDDYW Chloé [facility]tart: 96-96-3798msegmlbwsdAzfdtl D Manzon MD Work Phone: RheumatologyComment on above:PrednisoneStart: 59-17-4285H-mail encounter from caregiverDelmy Boyle MD Work Phone: [facility] FHCStart: 30-02-5088Qwletkhhp encounterDelmy Boyle MD Work Phone: [facility] Rhe[facility] InstituteComment on above:Patient RequestStart: 07-24-2022 End: 23-31-3384nyoswyzzmwUQEHEY DIAB .Facility:M3Evuzx: 06-28-2022 End: 16-10-4948ahgwpaxmmzQPYBVI LIBERTAD .Facility:W3Ztxur: 27-33-9065Jfrxdxjermaine Boyle MD Work Phone: RheumatologyComment on above:Refill RequestStart: 06-20-2022 End: 96-98-9419xjwugguxcdZV KIRT ZAMBRANO .Facility:D9Mmvct: 05-31-2022 End: 10-91-5338zprpdvusqaSJ RUGEN ALDAFacility:B0Tpcmf: 58-53-1536KekqziOtlynu D Manzon MD Work Phone: RheumatologyComment on above:Refill RequestStart: 03-31-2022 End: 47-67-6583vsywsrvyuzYF RUGEN ALDAFacility:C5Uuepx: 01-31-2022 End: 55-29-1499siykqqduowSG RUGEN ALDAFacility:D4Rvxrw: 01-14-2022 End: 63-29-2742taklkdttdgMM RUGEN ALDAFacility:K3Nombp: 01-01-2022 End: 79-54-0663Jgjuhdm encounter procedureDelmy Boyle MD Work Phone: RheumatologyComment on above: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 Ctr-1 SouthStart: 12-06-2021 End: 23-59-5825xpvibujozjDQ LEYDI ALVARENGAacility:L7Hllms: 10-19-2021 End: 79-96-0461dtbjddtapiJNUYJD RODRIGUEZ .Facility:T6Iobmh: 09-27-2021 End: 68-95-2402Jpiezptqk department patient visitMD Leydi Aceves Work Phone: [facility] Ctr-Emergency RoomStart: 09-27-2021 End: 17-10-2426zicwmlmynkNHZSJS RODRIGUEZ .Facility:M8Ezyuq: 40-45-5191Ycgjqh OnlyDelmy Boyle MD Work Phone: RheumatologyComment on above:Idiopathic chronic gout of multiple sites with tophusStart: 07-12-2018 End: 38-53-5267Nlviyhnxf department patient visitSANTA ANA HEALTH CENTERCHAGO [facility] Procedures DateProcedureProcedure DetailPerforming ClinicianStart: 41-54-3004MLU URATE SERPL-MCNCGeneric External Data ProviderStart: 53-92-6353FYF URATE SERPL-MCNC Generic External Data ProviderStart: 64-10-0147IFF CBC W AUTO DIFF BLDGeneric External Data ProviderStart: 50-61-1406LFG HGB BLD-MCNCGeneric External Data ProviderStart: 20-13-0829URZ CBC W AUTO DIFF BLDGeneric External Data Provider Start: 07-30-2024E COLI SHIGA TOXIN EIAGeneric External Data ProviderStart: 09-23-0005LWZXKZIHCO/SHIGELLA SCREENGeneric External Data ProviderStart: 12-88-6494QEUUI CULTURE 2Generic External Data ProviderStart: 79-58-2686UWINF CULTURE 1Generic External Data ProviderStart: 67-91-6057FVN CBC WITH AUTO DIFF Marina MARINELLI Work Phone: Start: 09-15-3720Ateju foot complete minimum 3 views Delmy Boyle MD Work Phone: Start: 06-01-9616NT FOOT 3V AP/LAT/OBL BILGeneric External Data ProviderStart: 72-75-7974PW KNEE 4V AP/PA/LAT/MERCH BILGeneric External Data ProviderStart: 15-69-7028QSN CBC W AUTO DIFF BLDGeneric External Data ProviderStart: 36-13-8163Amvvn depression screening assessmentDelmy Boyle MD Work Phone: Start: 59-05-4841Tw lumbar spine w/o contrast material RUGEN ALDAStart: 53-66-1166Fc thoracic spine w/o contrast materialRUGEN KETAN Plan of Treatment DateCare ActivityDetailAuthorStart: 58-55-7317Ywgzh microalbumin profile [facility]: 42-16-7291Kmcfxhlzsc measurementSerum CreatinineGrant Hospitaltart: 91-60-1951Jaopsbgvhu measurementSerum CreatinineSouthern [facility] Center Start: 01-09-2025 End: 98-43-5806Cmywnhc encounter sucqzzxou54/11/2025 4:00 PM EST Office Visit Rheumatology [address] [place], [place] [id number] [place] [address] [place], [place] [id number] FU 3 MON AT 11:40 , 4 OR 4:30 slots . ThxRheumatologyComment on above:FU 3 MON AT 11:40 , 4 OR 4:30 slots . ThxStart: 23-91-1167Clvxwhwuur measurementSerum CreatinineMarathon ClinicStart: 12-26-2024 End: 20-97-3100kzjnftcsxfBzfyblycqe/OncologyComment on above:KRYSTEXXAStart: 12-12-2024 End: 48-66-3861zoyhqlioosDpiydqtuqx/OncologyComment on above:KRYSTEXXAStart: 11-28-2024 End: 26-54-9408amkqmayespLwdlefwqla/OncologyComment on above:KRYSTEXXAStart: 11-17-2024 End: 75-36-3927uwulwdveqa16/19/2025 10:00 AM EDT [facility] Hematology/Oncology [address] [place] [address] [place], Chair [address] [address] KRYSTEXXAHematology/OncologyComment on above:KRYSTEXXAStart: 11-16-2024 End: 85-23-9652Mdtdfgn encounter wczwdelcw75/18/2025 10:00 AM EDT Office Visit [facility] [address] [address] labNortMackinac Straits Hospital LaboratoryComment on above:labStart: 11-14-2024 End: 83-10-2954xwfddczxofFhjcvnxnbj/OncologyComment on above:KRYSTEXXAStart: 11-07-2024 End: 08-00-4519Uhxeesl encounter /09/2025 9:30 AM EDT Office Visit VINNY Hayes [address] [facility] [address] [place] [address] Marina Rees PA [address] [facility] [address] [place] [address] Real Burnett MedinceComment on above:ArrivedStart: 08-80-1153Ykuqrcihe vaccinationNOVT HealthcareStart: 10-03-2024 End: 86-56-6769Owrqfli encounter sdvuawoyx02/05/2025 8:00 AM EDT Office Visit Rheumatology [address] [place], [place] [phone] [place] [address] [place], [place] [phone] Return in about 9 months (around 10/03/2024).Rheumatology Comment on above:Return in about 9 months (around 10/03/2024).Start: 09-25-2024 End: 19-88-6565Amcrvig aminotransferase [Enzymatic activity/volume] in Serum or PlasmaALANINE AMINOTRANSFERASE / SGPT Lab Routine Chronic tophaceous gout Encounter for long-term (current) use of medications Expected: 09/25/2024 (Approximate), Expires: 12/25/2024[facility] ClinicComment on above:Expected: 09/25/2024 (Approximate), Expires: 12/25/2024Start: 09-25-2024 End: 39-31-0764Egbynqj [Mass/volume] in Serum or PlasmaALBUMIN Lab Routine Chronic tophaceous gout Encounter for long-term (current) use of medications Exp ected: 09/25/2024 (Approximate), Expires: 12/25/2024[facility] ClinicComment on above:Expected: 09/25/2024 (Approximate), Expires: 12/25/2024Start: 09-25-2024 End: 20-36-2101Zcnvoydje aminotransferase [Enzymatic activity/volume] in Serum or PlasmaASPARTATE AMINOTRANSFERASE/SGOT Lab Routine Chronic tophaceous gout Encounter for long-term (current) use of medications Expected: 09/25/2024 (Approximate), Expires: 12/25/2024[facility] ClinicComment on above:Expected: 09/25/2024 (Approximate), Expires: 12/25/2024Start: 09-25-2024 End: 12-25-2024 reactive protein [Mass/volume] in Serum or PlasmaC-REACTIVE PROTEIN Lab Routine Chronic tophaceous gout Encounter for long-term (current) use of medications Expected: 09/25/2024 (Approximate), Expires: 12/25/2024 [facility] CenterComment on above:Expected: 09/25/2024 (Approximate), Expires: 12/25/2024Start: 09-25-2024 End: 59-46-6296EHC W Auto Differential panel - BloodCOMPLETE BLOOD COUNT AND DIFFERENTIAL Lab Routine Chronic tophaceous gout Encounter for long-term (c urrent) use of medications Expected: 09/25/2024 (Approximate), Expires: 12/25/2024[facility] ClinicComment on above:Expected: 09/25/2024 (Approximate), Expires: 12/25/2024Start: 09-25-2024 End: 13-25-8991EIWEABAVMS BLDCREATININE BLD Lab Routine Chronic tophaceous gout Encounter for long-term (current) use of medications Expected: 09/25/2024 (Approximate), Expires: 12/25/2024[facility] ClinicComment on above:Expected: 09/25/2024 (Approximate), Expires: 12/25/2024Start: 09-25-2024 End: 00-05-7252Tuzmvwsejng sedimentation rateSEDIMENTATION RATE, WESTERGREN Lab Routine Chronic tophaceous gout Encounter for long-term (current) use of medications Expected: 09/25/2024 (Approximate), Expires: 12/25/2024[facility] ClinicComment on above:Expected: 09/25/2024 (Approximate), Expires: 12/25/2024 Start: 09-25-2024 End: 28-18-0236Qyvdq [Mass/volume] in Serum or PlasmaURIC ACID Lab Routine Chronic tophaceous gout Encounter for long-term (current) use of medications E xpected: 09/25/2024 (Approximate), Expires: 12/25/2024[facility] ClinicComment on above:Expected: 09/25/2024 (Approximate), Expires: 12/25/2024Start: 08-07-2024 End: 98-47-2404Ivxmppr encounter procedureNOMS CI FMComment on above:Arrived Start: 05-18-2024 End: 01-85-5512Uhjadxm encounter qqcxjgkin66/20/2025 9:00 AM EDT Office Visit [facility] [address] [facility] [address] [place] [address] Marina Rees, PA [address] [place] [address] [place] [address] ArrivedNOMS CI FMComment on above:ArrivedStart: 04-20-2024 End: 95-07-3717SPOUJCPDWOJ WOUND (HTRX)SUPERFICIAL WOUND (HTRX) Lab Routine Abscess of right index finger Expected: 04/20/2024 (Approximate), Expires: 04/20/2025[facility] Work Phone: Comment on above:Expected: 04/20/2024 (Approximate), Expires: 04/20/2025Start: 04-20-2024 End: 92-15-7430Ulayibi encounter dxrsdofku05/20/2025 10:00 AM EST Office Visit [facility] [address] [facility] [address] [place] [address] Marina Rees PA [address] [facility] [address] [place] [address] ArrivedNOMS CI FMComment on above:ArrivedStart: 24-93-9020Videjjfbeu measurementSerum CreatinineGrant Hospitaltart: 01-21-2024 End: 49-67-9790Yykrvkl encounter suqeyhsii58/22/2024 9:00 AM EST Office Visit [facility] [address] [facility] [address] [place] [address] Marina Rees PA [address] [facility] [address] [place] [address] NOMS CI FMStart: 01-17-2024 End: 06-02-4504Zhehyyk encounter dxbxlamxr87/18/2024 9:15 AM EST Office Visit Orthopaedics [address] [place] [address] [place] [address] [place] [address] 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] OrthopaedicsComment on above: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]Start: 01-11-2024 End: 77-37-0812Qtsvzoh encounter blkzitapm89/12/2024 11:00 AM EST Office Visit [facility] [address] [facility] [address] [place] [address] Leydi Aceves MD [address] [facility] [address] [place] [address] NOMS CI FMStart: 01-04-2024 End: 90-59-7048Rslhuim encounter ocfhbttay96/05/2024 8:20 AM EST Office Visit Rheumatology [address] [place] [address] [place] [address] [place] [address] FU 6-7 MON WITH MDRheumatologyComment on above:FU 6-7 MON WITH MDStart: 88-42-3118Qexyw-19 Vaccine ( season)Covid-19 Vaccine ( season)[facility]: 17-01-2930Rhadqxqnc vaccination [facility]: 09-24-2023 End: 14-00-4221Ovwaqil encounter jyzcacvzt96/26/2024 8:00 AM EDT Office Visit Rheumatology [address] [place], [place] [phone] Kelly Martell, SOUND ENGINEER.TELEGRAPHIC TYPEWRITER REPAIRER [address] [place], [place] [phone] FU 3-4 MON WITH APPRheumatologyComment on above:FU 3-4 MON WITH APPStart: 99-15-7886Jwpcxiqvr vaccinationInfluenza Vaccine (#1)[facility] HealthcareComment on above:Postponed from 10/30/2022 (Other Patient Reasons) Start: 06-51-0627Xpkir CreatinineSerum CreatinineGrant Hospitaltart: 77-81-3669Ybprizckbx Health ScreeningBehavioral Health ScreeningSouthern [facility] Medical Center Start: 49-05-6914QN CONTROLLED (<130/80)BP CONTROLLED (<130/80)[facility] Start: 72-77-2045Ivipa-19 Vaccine ( season)Covid-19 Vaccine ()[facility]: 27-18-0262Ecyvyrwco vaccinationGrant Hospitaltart: 07-13-2022 End: 97-33-1398Kmtguzw aminotransferase [Enzymatic activity/volume] in Serum or PlasmaALT/SGPT Lab 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 Encounter for long-term (current) use of medications Expected: 07/13/2022 (Approximate), Expires: 09/12/2022[facility] Work Phone: Comment on above:Expected: 07/13/2022 (Approximate), Expires: 09/12/2022Start: 07-13-2022 End: 45-75-8284Siifuqf [Mass/volume] in Serum or PlasmaALBUMIN BLD Lab 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 Encounter for long-term (current) use of medications Expected: 07/13/2022 (Approximate), Expires: 09/12/2022[facility] Work Phone: Comment on above:Expected: 07/13/2022 (Approximate), Expires: 09/12/2022Start: 07-13-2022 End: 96-94-2548Tsdbhtbqi aminotransferase [Enzymatic activity/volume] in Serum or PlasmaAST/SGOT BLD Lab 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 Encounter for long-term (current) use of medications Expected: 07/13/2022 (Approximate), Expires: 09/12/2022[facility] Work Phone: Comment on above:Expected: 07/13/2022 (Approximate), Expires: 09/12/2022Start: 07-13-2022 End: 09-12-2022 reactive protein [Mass/volume] in Serum or PlasmaC-REACTIVE PROTEIN (CRP) Lab 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 Encounter for long-term (current) use of medications Expected: 07/13/2022 (Approximate), Expires: 09/12/2022[facility] Work Phone: Comment on above:Expected: 07/13/2022 (Approximate), Expires: 09/12/2022Start: 07-13-2022 End: 40-97-0751HLT W Auto Differential panel - BloodCBC + DIFF Lab 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 Encounter for long-term (current) use of medications Expected: 07/13/2022 (Approximate), Expires: 09/12/2022[facility] Work Phone: Comment on above:Expected: 07/13/2022 (Approximate), Expires: 09/12/2022Start: 07-13-2022 End: 75-75-9641EGEUXIIFLT BLDCREATININE BLD Lab 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 Encounter for long-term (current) use of medications Expected: 07/13/2022 (Approximate), Expires: 09/12/2022[facility] Work Phone: Comment on above:Expected: 07/13/2022 (Approximate), Expires: 09/12/2022Start: 07-13-2022 End: 00-16-1142Sqelmvcsohl sedimentation rateSED RATE WESTERGREN Lab 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 Encounter forlong-term (current) use of medications Expected: 07/13/2022 (Approximate), Expires: 09/12/2022[facility] Work Phone: Comment on above:Expected: 07/13/2022 (Approximate), Expires: 09/12/2022Start: 07-13-2022 End: 27-17-2274Yzwcw [Mass/volume] in Serum or PlasmaURIC ACID BLOOD Lab 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 Encounter for long-term (current) use of medications Expected: 07/13/2022 (Approximate), Expires: 09/12/2022[facility] Work Phone: Comment on above:Expected: 07/13/2022 (Approximate), Expires: 09/12/2022Start: 78-91-7044VICGK CREATININESERUM CREATININEGrant Hospitaltart: 68-06-6796PIBBEVJZEM ASSESSMENTDEPRESSION ASSESSMENTGrant Hospitaltart: 03-79-5680PxczdgwtsOhioHealth Van Wert Hospitaltart: 12-07-2021 Hospital admissionOhioHealth Van Wert Hospitaltart: 34-56-4929Ytyzmuim to Social ServicesOhioHealth Van Wert Hospitaltart: 91-32-3866Njjtevtqv vaccinationGrant Hospitaltart: 29-03-9518Jgwex depression screening assessmentDEPRESSION SCREENINGGrant Hospitaltart: 70-17-2400GJXGKPHPUB ASSESSMENTDEPRESSION ASSESSMENTGrant Hospitaltart: 24-66-0960XKV Vaccine (1 - 3-dose SCDM series)HPV Vaccine (1 - 3-dose SCDM series)[facility]: 60-06-1492Pzqjeispb B Vaccine (1 of 3 - 19+ 3-dose series)Hepatitis B Vaccine (1 of 3 - 19+ 3-dose series)[facility]: 61-81-5279Hnilvmdvglor vaccinationPneumococcal Vaccine (1 of 2 - PCV)[facility]: 2009 Shingrix Vaccine (1 of 2)Shingrix Vaccine (1 of 2)[facility]: 81-44-1052NINYFH PCP TEAM CHRONIC DISEASE VISITANNUAL PCP TEAM CHRONIC DISEASE VISITGrant Hospitaltart: 25-29-5642Mtnfmzg ScreeningAnxiety [facility]: 71-50-5585HG CONTROLLED (<130/80)BP CONTROLLED (<130/80) [facility]: 41-82-2619Blehbpifre ScreeningDepression Screening [facility]: 89-11-8604VSI SCREENINGHIV SCREENINGS[facility] Start: 14-39-4777MTI screeningHIV ScreeningGrant [facility]: 1995 COVID-19 VACCINE (#1)COVID-19 VACCINE (#1)[facility] COVID-19 VACCINE (#1)COVID-19 VACCINE (#1)[facility] 1990 HEPATITIS B (1 of 3 - 3-dose series)HEPATITIS B (1 of 3 - 3-dose series) [facility]: 09-54-9611Rllfpvghw B Vaccine (1 of 3 - 3-dose series) Hepatitis B Vaccine (1 of 3 - 3-dose series)[facility] End: 97-92-3223Oscmdqz aminotransferase [Enzymatic activity/volume] in Serum or PlasmaALANINE AMINOTRANSFERASE / SGPT Lab Routine Chronic tophaceous gout Encounter for long-term (current) use of medications Every 3 months for 5 Occurrences starting 06/24/2023 until 06/23/2024[facility] ClinicComment on above:Every 3 months for 5 Occurrences starting 06/24/2023 until 06/23/2024 End: 23-23-7974Pyyyqqh [Mass/volume] in Serum or PlasmaALBUMIN Lab Routine Chronic tophaceous gout Encounter for long-term (current) use of medications Kamila ry 3 months for 5 Occurrences starting 06/24/2023 until 06/23/2024[facility] ClinicComment on above:Every 3 months for 5 Occurrences starting 06/24/2023 until 06/23/2024 End: 41-45-7797Lschyxrmn aminotransferase [Enzymatic activity/volume] in Serum or PlasmaASPARTATE AMINOTRANSFERASE/SGOT Lab Routine Chronic tophaceous gout Encounter for long-term (current) use of medications Every 3 months for 5 Occurrences starting 06/24/2023 until 06/23/2024[facility] Work Phone: Comment on above:Every 3 months for 5 Occurrences starting 06/24/2023 until 06/23/2024LOOD CULTURE 1BLOOD CULTURE 1 Lab Routine 07/29/2024 10:00 PM EDTNOVT HealthcareBLOOD CULTURE 2BLOOD CULTURE 2 Lab Routine 07/29/2024 10:05 PM [facility] End: 06-23-2024 reactive protein [Mass/volume] in Serum or PlasmaC-REACTIVE PROTEIN Lab Routine Chronic tophaceous gout Encounter for long-term (current) use of medications Every 3 months for 5 Occurrences starting 06/24/2023 until 06/23/2024[facility] ClinicComment on above:Every 3 months for 5 Occurrences starting 06/24/2023 until 06/23/2024 End: 05-74-6151YVM W Auto Differential panel - BloodCOMPLETE BLOOD COUNT AND DIFFERENTIAL Lab Routine Chronic tophaceous gout Encounter for long-term (c urrent) use of medications Every 3 months for 5 Occurrences starting 06/24/2023 until 06/23/2024[facility] ClinicComment on above:Every 3 months for 5 Occurrences starting 06/24/2023 until 06/23/2024 End: 47-59-9866WFOGYHSZNM BLDCREATININE BLD Lab Routine Chronic tophaceous gout Encounter for long-term (current) use of medications Every 3 months for 5 Occurrences starting 06/24/2023 until 06/23/2024[facility] ClinicComment on above:Every 3 months for 5 Occurrences starting 06/24/2023 until 06/23/2024E COLI SHIGA TOXIN EIAE COLI SHIGA TOXIN EIA Lab Routine 07/30/2024 3:45 PM EDT [facility] End: 51-15-5364Ldtmkfoycom sedimentation rateSEDIMENTATION RATE, WESTERGREN Lab Routine Chronic tophaceous gout Encounter for long-term (current) use of medications Every 3 months for 5 Occurrences starting 06/24/2023 until 06/23/2024[facility] ClinicComment on above:Every 3 months for 5 Occurrences starting 06/24/2023 until 06/23/2024[facility]St[facility] Work Phone: Patient referralSt. [facility] Work Phone: SALMONELLA/SHIGELLA SCREENSALMONELLA/SHIGELLA SCREEN Lab Routine 07/30/2024 3[facility] End: 22-00-6460Onnbo [Mass/volume] in Serum or PlasmaURIC ACID Lab Routine Chronic tophaceous gout Encounter for long-term (current) use of medications E very 6 months for 3 Occurrences starting 06/24/2023 until 06/23/2024[facility] ClinicComment on above:Every 6 months for 3 Occurrences starting 06/24/2023 until 06/23/2024 End: 57-86-5643OX Foot - bilateral AP and Lateral and obliqueXR FOOT GENERAL 3V AP/LAT/OBL BILATERAL Radiology Routine Chronic tophaceous gout Encounter for long-term (current) use of medications 1 Occurrences starting 01/04/2024 until 02/02/2025[facility] Work Phone: Comment on above:1 Occurrences starting 01/04/2024 until 02/02/2025XR Foot - bilateral AP and Lateral and obliqueXR FOOT GENERAL 3V AP/LAT/OBL BILATERAL Radiology Routine Chronic tophaceous gout Encounter for long-term (current) use of medications 01/04/2024 9:48 AM [facility] Immunizations Immunization DateImmunizationNotesCare QzilsoyfAxygxrhv98-94-7103zzzruehya virus vaccine, unspecified formulationDelmy Boyle MD Work Phone: [facility] CenterYazldw39-21-0340wkthsjy, mumps and rubella virus vaccineLeydi Aceves MD Work Phone: [facility] CenterIvitzwycni74-90-5944ivifggiyub, tetanus toxoids and acellular pertussis vaccine, unspecified formulationLeydi Aceves MD Work Phone: [facility] CenterIilwpraujz31-89-0402desorkpthbh influenzae type b vaccine, conjugate unspecified formulationLeydi Aceves MD Work Phone: [phone] Foundation TechnologiesNortheast Regional Medical CenterUksmfybwxt66-18-4781xsuhucvqc poliovirus vaccine, live, oralLeydi Aceves MD Work Phone: [facility] CenterRduaybwvzy15-50-0984truwjtiwmy, tetanus toxoids and pertussis vaccineLeydi Aceves MD Work Phone: [facility] CenterCtbqzaptac67-73-8599mexzwkvgsem influenzae type b vaccine, conjugate unspecified formulationLeydi Aceves MD Work Phone: [facility] CenterYziorsdiqj80-09-8566bsmsgww, mumps and rubella virus vaccineLeydi Aceves MD Work Phone: [facility] CenterWiueelrmrh65-39-7217ojsruljpya, tetanus toxoids and pertussis vaccineLeydi Aceves MD Work Phone: [facility] CenterIabpgyzxjn27-89-1338itcokxgopdb influenzae type b vaccine, conjugate unspecified formulationLeydi Aceves MD Work Phone: [facility] CenterOdjoszcvla31-93-0369yiwdarqtx poliovirus vaccine, live, oralLeydi Aceves MD Work Phone: [facility] CenterVmjiyirzff14-79-5169jjpnxhwbiz, tetanus toxoids and pertussis vaccineLeydi Aceves MD Work Phone: [phone] Foundation TechnologiesNortheast Regional Medical CenterZizincgvgi17-06-8234dzyjzrxrptj influenzae type b vaccine, conjugate unspecified formulationLeydi Aceves MD Work Phone: noCitizens Memorial HealthcareWektjjtyxt34-90-1061zydyjnmjg poliovirus vaccine, live, oralLeydi Aceves MD Work Phone: [facility] Healthcare Payers DatePayer CategoryPayerPolicy [id number] Health InsuranceCARESOURCE MEDICAID Member Subscriber Plan / Payer (Effective 2022-Present) Name: Kam Wrayn Keena Relation to Subscriber: Self Name: Nick Wray Payer ID: Not on file Group ID: [id number] Type: Not on file Address: [address] [id number] 2022Medicaid [employer] MEDICAID [employer] MEDICAID [id number] 2021- [phone] [address] [id number] [id number] 2022Medicaid [id number] [id number] 2.840.1.770356.3.57[id number] 2.0.1.051026.3.57[id number] 2.840.1.149709.3.57[id number] 2.0.1.517002.3.57[id number] 2.16.840.1.074941.3.57[id number] 2.16.840.1.742384.3.57[id number] 2.16.840.1.875091.3.57[id number] 2.16.840.1.860068.3.57[id number] 2.16.840.1.933361.3.57[id number] 2.16.840.1.515123.3.57[id number] 2.16.840.1.518668.3.57[id number] 2.16.840.1.849942.3.57[id number] 2.16.840.1.054833.3.579.[id number] 2.16.840.1.396180.3.57[id number] 2.16.840.1.397728.3.57[id number] 2.16.840.1.817514.3.57[id number] 2.16.840.1.995213.3.57[id number] 2.16.840.1.504785.3.579.2.1259 [id number] [facility] [id number] [id number] 2..840.1.2[id number] 04.16.840.1.146680.3.579.2.531 Social History DateTypeDetailFacilityStart: 05-04-2017 End: 12-90-0457Hbtyejm smoking status NHISNever smoked tobaccoSouthern [facility] Medical Center Start: 05-04-2017 End: 25-51-0540Luxwvfx use and exposureUser of smokeless tobaccoSouthern [facility] Medical Center History of tobacco useChews TobaccoGrant Hospitaltart: 93-66-1869Drj Assigned At BirthMaleCst. vin[facility] hospital ClinicStart: 39-96-9198Epqdjvy smoking status NHISSmoker (finding)[facility] End: 37-18-7263Fwmdnalq to SARS-CoV-2 (event)Not sure[facility]: 08-14-2022 End: 83-10-9271Ttezthf of Social functionGrant Hospitaltart: 08-14-2022 End: 39-59-9999Ndjlenq use panelGrant Hospitalt[facility]: 01-07-2015 End: 39-63-2308Eints Depression Screening Sjyyllkvfl2Wstmypqsf ClinicStart: 09-58-1591Pqzphq identityIdentifies as male gender (finding)[facility] Start: 82-66-0431Tybkii orientationHeterosexual (finding)[facility]: 42-61-7774Pkpvxws use and exposureSmokeless tobacco non-userNOMS Healthcare Start: 02-16-2023 End: 97-80-3322Mmfknoe intakeCurrent drinker of alcohol (finding)[facility] Within the last year, have you been afraid of your partner or ex-partner?NoNOMS HealthcareDo you belong to any clubs or organizations such as hindu groups, unions, fraternal or athletic groups, or school groups?YesNOMS HealthcareAre [...] cups per day soda/popNOMS HealthcareStart: 02-26-2008 End: 60-38-5702Mkkvnyd smoking status NHISSmokes tobacco dailyNOMS HealthcareAre you now , , , , never or living with a partner?SeparatedNOMS HealthcareHow often to you have a drink containing alcohol?Monthly or lessNOMS HealthcareHow often do you have 6 or more drinks on 1 occasion?NeverNOMS Healthcare(I/We) worried whether (my/our) food would run out before (I/we) got money to buy more.Sometimes trueNOMS HealthcareStart: 59-52-7775Qiwyqrr Comment2 or 3 drinks in one sitting. Maybe two or three times per wNROLLING HILLS [facility]PITAL – [facility] HealthcareStart: 89-37-8682Tjpmsqp of tobacco useCigarette SmokerNOMS Healthcare Goals DatePatient GoalDesired Activity/State Functional Status FsofJoapvwpeztNuneyqXorylzlu89-06-3293Gmezhwl Health Questionnaire 2 item (PHQ- 2) [Reported][facility] CenterZmsmxrnhmt08-80-3100Ccpamch Health Questionnaire 2 item (PHQ- 2) [Reported][facility] Medical CenterJqjjfucosj95-80-6064Kipfuiz Health Questionnaire 2 item (PHQ- 2) [Reported][facility] CenterEudisopodp10-58-7676Wmrdtartxy statusPatient at [facility] Work Phone: [phone]td statusDisability Status [facility] Work Phone: [phone] you deaf, or do you have serious difficulty hearingNo 04/26/2017 6:15 PM Domi Hurtado RN [facility] 07-20-4914Cyn you blind, or do you have serious difficulty seeing, even when wearing glassesNo 04/26/2017 6:15 PM Domi Hurtado RN [facility] 45-13-4259Qh you have serious difficulty walking or climbing stairsNo 04/26/2017 6:15 PM Domi Hurtado RN NoCst. mary's medical centerdat Yenznf20-61-5172Bg you have difficulty dressing or bathingNo 04/26/2017 6:15 PM Domi Hurtado RN [facility] 39-48-7550Sphoeoo of a physical, mental, or emotional condition, do you have difficulty doing errands alone such as visiting a physician's office or shopping No 04/26/2017 6:15 PM Domi Hurtado RN [facility] Mental Status UlomJvkilfbgwtPpbambPvldqjfn27-39-1797Tcpqyldqz functionCognitive Status [facility] Work Phone: [phone] of a physical, mental, or emotional condition, do you have serious difficulty concentrating, remembering, or making decisionsNo 04/26/2017 6:15 PM Domi Hurtado RN [facility] Clinical Notes 04-25-2017 to 12-05-2024 Note Date & FivjEpfhKsfespiy56-46-1339 Telephone encounter Note* Telephone Encounter - ISIS Vera - 12/05/2024 9:22 AM EDT OARRS reviewed, Rx sent into patient's pharmacy. [facility] CenterNdbxzuxudk76-48-0542 Miscellaneous Notes* Telephone Encounter - ISIS Vera - 12/05/2024 9:22 AM EDT OARRS reviewed, Rx sent into patient's pharmacy. * Telephone Encounter - KAT CHAUDHARI - 12/05/2024 8:27 AM EDT OV 11/07/24 documented in this encounterNortheast Regional Medical CenterBgbmgxlyqi17-26-3537 Telephone encounter Note* Telephone Encounter - KAT CHAUDHARI - 12/05/2024 8:27 AM EDT OV 11/07/24 [facility] CenterYcqgasyefe72-10-6481 NoteHNO ID: [id number] Author: NEETA CHENG RN Service: ? Author Type: Registered Nurse Type: Progress Notes Filed: 11/28/2024 15:59 Note Text: Redraw 0.6 ok to proceed per Dr Matthew Cheng RNOhiohealth [facility]09-30-2025 NoteHNO ID: [id number] Author: NEETA CHENG RN Service: ? Author Type: Registered Nurse Type: Progress Notes Filed: 11/28/2024 15:59 Note Text: Uric acid drawn yesterday was in process this morning. Called out to [facility] lab who ran the sample STAT so we can proceed with treatment today. Results were completely different from prior. Message sent to Dr Boyle who concurs with redrawing serum uric acid and ordered ok to proceed if uric acid is <6 Neeta Cheng RNOhiohealth Grove City [facility] Hospital09-16-2025 NoteHNO ID: [id number] Author: NEETA CHENG RN Service: ? Author Type: Registered Nurse Type: Progress Notes Filed: 11/14/2024 15:21 Note Text: Patient has arrived for first dose Krystexxa. Patient education reinforced, printed literature given. Questions were answered as appropriate. Neeta Cheng RNOhiohealth Grove City [facility] Hospital09-16-2025 History of Present illness Narrative* Neeta Cheng RN - 11/14/2024 12:29 PM EDT Patient has arrived for first dose Krystexxa. Patient education reinforced, printed literature given. Questions were answered as appropriate. Neeta Cheng RN documented in this encounterSouthern [facility] Medical Center09-15-2025 Telephone encounter Note * Telephone Encounter - Delmy Boyle MD - 11/13/2024 5:17 PM EDT OK to proceed with infusion. thx [facility]09-15-2025 Miscellaneous Notes* Telephone Encounter - Delmy Boyle MD - 11/13/2024 5:17 PM EDT OK to proceed with infusion. thx * Telephone Encounter - Lesia Covarrubias RN - 11/13/2024 4:22 PM EDT Nick is scheduled for his Krystexxa tomorrow 11/14/24 in our [facility]. His uric acid today was 9.5. Do you want us to treat? Please advise. Thank you, Leisa Covarrubias RN documented in this encounterSouthern Ohio Medical Center09-15-2025 Telephone encounter Note * Telephone Encounter - Lesia Covarrubias RN - 11/13/2024 4:22 PM EDT Nick is scheduled for his Krystexxa tomorrow 11/14/24 in our [facility]. His uric acid today was 9.5. Do you want us to treat? Please advise. Thank you, Lesia Covarrubias RN [facility]09-10-2025 Telephone encounter Note* Telephone Encounter - Delmy Boyle MD - 11/08/2024 12:25 PM EDT Orders signed. thx [facility]09-10-2025 Miscellaneous Notes* Telephone Encounter - Delmy Boyle MD - 11/08/2024 12:25 PM EDT Orders signed. thx * Telephone Encounter - Lesia Covarrubias RN - 11/08/2024 9:17 AM EDT Nick is scheduled to receive his Krystexxa infusion in our [facility] on 11/17. Can you please sign the orders to prevent a delay in treatment? Thank you, Lesia Covarrubias RN documented in this encounterSouthern Ohio Medical Center09-10-2025 Miscellaneous Notes* Telephone Encounter - Delmy Boyle MD - 11/08/2024 11:45 AM EDT Duplicate request - see other encounter. Controlled substances should be requested from only one provider - he should contact prescribing provider as recommend in other encounter. thx documented in this encounterSouthern Ohio Medical Center09-10-2025 Telephone encounter Note * Telephone Encounter - Delmy Boyle MD - 11/08/2024 11:45 AM EDT Duplicate request - see other encounter. Controlled substances should be requested from only one provider - he should contact prescribing provider as recommend in other encounter. thx [facility]09-10-2025 Telephone encounter Note* Telephone Encounter - Lesia Covarrubias RN - 11/08/2024 9:17 AM EDT Nick is scheduled to receive his Krystexxa infusion in our [place] clinic on 11/17. Can you please sign the orders to prevent a delay in treatment? Thank you, Lesia Covarrubias RN [facility]09-09-2025 History of Present illness Narrative* ISIS Vera [...] mg) before bedtime. 100 capsule 3 HYDROcodone-acetaminophen ([place]) 5-325 MG tablet Take 1 tablet by [...] with positive rheumatoid factor (HCC) - HYDROcodone-acetaminophen ([place]) 5-325 MG tablet; Take 1 tablet by [...] Wellness, Medication Follow Up. documented in this encounterNortheast Regional Medical CenterLgjbhbwbmq22-28-2911 Telephone encounter Note* Telephone Encounter - Delmy Boyle MD - 11/03/2024 5:40 PM EDT The following approved medication requests have been transmitted electronically. Requested Prescriptions Signed Prescriptions Disp Refills predniSONE (DELTASONE) 5 mg tablet 21 tablet 0 Sig: Take 6 tab in AM on day 1 then reduce dose by 1 tablet every day until off Delmy Boyle MD [facility]09-05-2025 Miscellaneous Notes* Telephone Encounter - Delmy Boyle [...] 02, 2024 2:58 PM documented in this encounterSouthern Ohio Medical Center09-04-2025 Telephone encounter Note * Telephone Encounter - [...] Uribe MA November 02, 2024 2:58 PM [facility]08-05-2025 Telephone encounter Note* Telephone Encounter - Caren Vogt LPN - 10/03/2024 8:59 AM EDT Urgent prior authorization request and today's office notes faxed to [facility]. Febuxostat/Uloric [facility]08-05-2025 Miscellaneous Notes* Telephone Encounter - Caren Vogt LPN - 10/03/2024 8:59 AM EDT Urgent prior authorization request and today's office notes faxed to [facility]. Febuxostat/Uloric documented in this encounterSouthern Ohio Medical Center08-05-2025 NoteHNO ID: [id number] Author: DELMY BOYLE MD Service: ? Author [...] arthritic flares once every 4 months[address] senior statistical programmer Dr. Jaime in [place] who did diagnostic knee aspiration which according to patient was positive for uric acid crystals. Treated with steroids and continued allopurinol. He has not seen Dr. Jaime since 2014. In 2014, he was hospitalized in [place] for acute polyarthritis. Saw senior statistical programmer while in hospital who told him that he possibly had RA. Discharged on steroids. His PCP switched him from allopurinol to Uloric Jan 2017. He also takes colchicine prn. No reduction in frequency or severity of his joint flares with Uloric. In 2017, he has been hospitalized 7-8 times for acute joint flares. Each time he is treated with steroids. Hospitalized at [facility] Apr 2017 for acute flare of inflammatory [...] shoulder surgery by Dr. Tc Coffey at [facility]. No post op complications. Was in PT 5. GENERAL HEALTH MAINTENANCE -continue follow up on his CKD with nephrology -he will follow up with his PCP for his general health issues FU 3 MON, SOONER IF NEEDED INTERVAL HISTORY Recording using [employer] software for draft documentation of the vi (more content not included)...[facility]08-04-2025 Telephone encounter Note* Telephone Encounter - ISIS Vera - 10/02/2024 3:55 PM EDT OARRS reviewed, Rx sent into patient's pharmacy. Discussed patient with Dr. Aceves. Will monitor mental health status closely. Will ensure pt has routine follow up appointments. Pt is scheduled to see Rheumatology tomorrow. Goal is to pursue non-narcotic treatment options through Rheumatology, safer termite inspector solutions. [facility] CenterBmipfemhlk45-39-6193 Miscellaneous Notes* Telephone Encounter - ISIS Vera - 10/02/2024 3:55 PM EDT OARRS reviewed, Rx sent into patient's pharmacy. Discussed patient with Dr. Aceves. Will monitor mental health status closely. Will ensure pt has routine follow up appointments. Pt is scheduled to see Rheumatology tomorrow. Goal is to pursue non-narcotic treatment options through Rheumatology, safer termite inspector solutions. * Telephone Encounter - Roseanna Elmore - 10/02/2024 1:11 PM EDT HYDROcodone-acetaminophen ([place]) 5-325 MG tablet [facility] documented in this encounterNortheast Regional Medical CenterDganpmjuxn17-90-2941 Telephone encounter Note* Telephone Encounter - Roseanna Elmore - 10/02/2024 1:11 PM EDT HYDROcodone-acetaminophen ([place]) 5-325 MG tablet [facility] CenterNgwkftnvjr39-01-6002 Telephone encounter Note* Telephone Encounter - ISIS Vera - 09/16/2024 1:35 PM EDT Colchicine sent. [facility] CenterWicjemhhln28-24-6446 Miscellaneous Notes* Telephone Encounter - ISIS Vera - 09/16/2024 1:35 PM EDT Colchicine sent. documented in this encounterNortheast Regional Medical CenterAmvugbbdmd29-19-9220 History of Present illness Narrative* ISIS Vera [...] happened on 09/05 and he went to [facility] ER Pt was not given any [...] mg) before bedtime. 100 capsule 3 HYDROcodone-acetaminophen ([place]) 5-325 MG tablet Take 1 tablet by [...] WISDOM TOOTH EXTRACTION 2009 Visit Vitals BP 112/78 Pulse 102 Ht [...] for Medication Follow Up. documented in this encounterNortheast Regional Medical CenterLadawgtzpf42-76-8286 Telephone encounter Note* Telephone Encounter - ISIS Vera - 09/04/2024 8:51 AM EDT OARRS reviewed, Rx sent into patient's pharmacy. [facility] CenterOeagdflmfh37-01-4543 Miscellaneous Notes* Telephone Encounter - ISIS Vera - 09/04/2024 8:51 AM EDT OARRS reviewed, Rx sent into patient's pharmacy. * Telephone Encounter - KAT CHAUDHARI - 09/04/2024 8:16 AM EDT OV 08/07/24 RF 08/07/24 documented in this encounterNortheast Regional Medical CenterNopewqexuu70-49-9166 Telephone encounter Note* Telephone Encounter - KAT CHAUDHARI - 09/04/2024 8:16 AM EDT OV 08/07/24 RF 08/07/24 [facility] CenterRvsiacxjaa26-09-1002 History of Present illness Narrative* ISIS Vera - 08/07/2024 11:00 AM EDT Images from the original note were not included. Subjective Patient ID: Nick Wray is a 34 y.o. male who presents for [facility] follow up. Flowsheet Row Patient Outreach from 08/01/2024 in [facility] with Jayne Del Valle RN Hospital Information ED, Hospital or Halfway Facility Discharge? Hospital Patient has been contacted within two business days of discharge Yes Diagnosis intractable pain, polyarthralgia, RA flare, acute hypernatremia, hyperglycemia-drug induced Discharge Date 07/31/24 Discharged To: Home Setting Discharge Hospital [facility] Admission Date 07/29/24 Medications Discharge medications reviewed [...] 1030am. Did a Zoom call with an PIPE ORGAN TUNER AND REPAIRER at the Rheumatology office last week. Is [...] of multiple sites with negative rheumatoid factor ([facility]/HCC) 05/10/2017 Past Surgical History: Procedure Laterality Date FRACTURE SURGERY INCISION AND DRAINAGE OF WOUND 02/15/[address] Coffman SHOULDER ARTHROSCOPY Right WISDOM TOOTH EXTRACTION 2009 Visit Vitals BP (!) 162/118 Pulse 83 [...] involving multiple sites with positive rheumatoid factor ([facility]) - HYDROcodone-acetaminophen ([place]) 5-325 MG tablet; Take 1 tablet by mouth every 12 (twelve) hoursif needed for severe pain Tramadol is not effective for pt. He cannot tell a difference when he takes it. Will change pt to [place] at this time. Medication choice and dosage [...] risks of opioid therapy including potential for TESTING ENGINEER s/e, GI s/e, respiratory s/e, dermatologic s/e, [...] for Medication Follow Up. documented in this [facility]05-28-2025 Telephone encounter Note* Telephone Encounter - ISIS Vera - 07/26/2024 9:35 AM EDT Tramadol already sent. [facility] CenterPkrjflowtw26-88-6142 Miscellaneous Notes* Telephone Encounter - ISIS Vera - 07/26/2024 9:35 AM EDT Tramadol already sent. documented in this [facility]05-28-2025 Telephone encounter Note* Telephone Encounter - ISIS Vera - 07/26/2024 9:33 AM EDT OARRS reviewed, Rx sent into patient's pharmacy. [facility] CenterJoiojtjrkc20-32-0714 Miscellaneous Notes* Telephone Encounter - ISIS Vera - 07/26/2024 9:33 AM EDT OARRS reviewed, Rx sent into patient's pharmacy. documented in this encounterNortheast Regional Medical CenterHxuijjrdcl96-98-4221 Telephone encounter Note* Telephone Encounter - ISIS Vera - 07/11/2024 10:04 AM EDT No longer filling the [place] for pt, he has been tapered off. He can take Tramadol as needed for pain. [facility] CenterMynalcewxa73-56-2876 Miscellaneous Notes* Telephone Encounter - ISIS Vera - 07/11/2024 10:04 AM EDT No longer filling the [place] for pt, he has been tapered off. He can take Tramadol as needed for pain. * Telephone Encounter - KAT CHAUDHARI - 07/11/2024 8:54 AM EDT Last OV 325 Refill 5-925 documented in this encounterNortheast Regional Medical CenterSdbzwapzfe34-69-7508 Telephone encounter Note* Telephone Encounter - KAT CHAUDHARI - 07/11/2024 8:54 AM EDT Last OV 3-20-25 Refill 5-9-25 [facility] CenterDigtozknkv20-31-0256 Telephone encounter Note* Telephone Encounter - ISIS Vera - 07/07/2024 11:04 AM EDT OARRS reviewed, Rx sent into patient's pharmacy. [facility] CenterBpwtbpdiww32-00-2059 Miscellaneous Notes* Telephone Encounter - ISIS Vera - 07/07/2024 11:04 AM EDT OARRS reviewed, Rx sent into patient's pharmacy. * Telephone Encounter - KAT CHAUDHARI - 07/07/2024 10:16 AM EDT Last OV 3-20-25 Last refill 5-5-25 documented in this encounterNortheast Regional Medical CenterKgkjohntlj54-25-0804 Telephone encounter Note* Telephone Encounter - KAT CHAUDHARI - 07/07/2024 10:16 AM EDT Last OV 3-20-25 Last refill 5-5-25 [facility] CenterCsdkzimihc77-19-6864 Telephone encounter Note* Telephone Encounter - ISIS Vera - 07/03/2024 2:40 PM EDT Sent in a lower dosing frequency. [facility] CenterRtujirwhrw92-76-4787 Miscellaneous Notes* Telephone Encounter - ISIS Vera - 07/03/2024 2:40 PM EDT Sent in a lower dosing frequency. documented in this [facility]04-30-2025 Telephone encounter Note* Telephone Encounter - ISIS Vera - 06/28/2024 9:39 AM EDT OARRS reviewed, Rx sent into patient's pharmacy. [place] [id number] Miscellaneous Notes* Telephone Encounter - ISIS Vera - 06/28/2024 9:39 AM EDT OARRS reviewed, Rx sent into patient's pharmacy. documented in [place] [id number] Telephone encounter Note* Telephone Encounter - ISIS Vera - 06/27/2024 9:41 AM EDT Already addressed, [place] [id number] Miscellaneous Notes* Telephone Encounter - ISIS Vera - 06/27/2024 9:41 AM EDT Already addressed, * Telephone Encounter - Roseanna Elmore - 06/26/2024 1:44 PM EDT HYDROcodone-acetaminophen ([place]) 5-325 MG tablet [facility] documented [place] [id number] Telephone encounter Note* Telephone Encounter - ISIS Vera - 06/27/2024 8:06 AM EDT Currently on medrol [place] [id number] Miscellaneous Notes* Telephone Encounter - ISIS Vera - 06/27/2024 8:06 AM EDT Currently on medrol documented in this [facility]04-28-2025 Telephone encounter Note* Telephone Encounter - Roseanna Elmore - 06/26/2024 1:44 PM EDT HYDROcodone-acetaminophen ([place]) 5-325 MG tablet [facility] CenterDcxmnwtgyj78-87-7846 Telephone encounter Note* Telephone Encounter - ISIS Vera - 06/19/2024 9:30 AM EDT OARRS reviewed, Rx sent into patient's pharmacy. [place] [id number] Miscellaneous Notes* Telephone Encounter - ISIS Vera - 06/19/2024 9:30 AM EDT OARRS reviewed, Rx sent into patient's pharmacy. documented in this [facility]04-14-2025 Telephone encounter Note* Telephone Encounter - ISIS Vera - 06/12/2024 9:20 AM EDT OARRS reviewed, Rx sent into patient's pharmacy. [address]Ruopcjdoan55-29-1178 Miscellaneous Notes* Telephone Encounter - ISIS Vera - 06/12/2024 9:20 AM EDT OARRS reviewed, Rx sent into patient's pharmacy. documented in this [address]07-2025 Telephone encounter Note* Telephone Encounter - ISIS Vera - 06/05/2024 11:39 AM EDT OARRS reviewed, Rx sent into patient's pharmacy. [facility] CenterJtbuvqwggt60-29-5845 Miscellaneous Notes* Telephone Encounter - ISIS Vera - 06/05/2024 11:39 AM EDT OARRS reviewed, Rx sent into patient's pharmacy. documented in this [facility]03-31-2025 Telephone encounter Note* Telephone Encounter - ISIS Vera - 05/29/2024 11:11 AM EDT OARRS reviewed, Rx sent into patient's pharmacy. [facility] CenterPdkvsiyczr81-77-4615 Miscellaneous Notes* Telephone Encounter - ISIS Vera - 05/29/2024 11:11 AM EDT OARRS reviewed, Rx sent into patient's pharmacy. * Telephone Encounter - KAT CHAUDHARI - 05/29/2024 8:32 AM EDT Last OV 3-20-25 Last refill 3-25 documented in this [facility]03-31-2025 Telephone encounter Note* Telephone Encounter - KAT CHAUDHARI - 05/29/2024 8:32 AM EDT Last OV 3-20-25 Last refill 3--25 [facility] CenterCdrrexvgoq62-55-5520 Telephone encounter Note* Telephone Encounter - ISIS Vera - 05/11/2024 12:58 PM EDT OARRS reviewed, Rx sent into patient's pharmacy. [facility] CenterEguyzavrqg92-72-3298 Miscellaneous Notes* Telephone Encounter - ISIS Vera - 05/11/2024 12:58 PM EDT OARRS reviewed, Rx sent into patient's pharmacy. * Telephone Encounter - Roseanna Elmore - 05/11/2024 11:41 AM EDT Pt called asking for hydrocodone to be sent in I'm not seeing this on his med list documented in this encounterNortheast Regional Medical CenterHqqhcjarsm69-37-7142 Telephone encounter Note* Telephone Encounter - Roseanna Elmore - 05/11/2024 11:41 AM EDT Pt called asking for hydrocodone to be sent in I'm not seeing this on his med list [facility] CenterZbliklbpjg68-06-3466 Telephone encounter Note* Telephone Encounter - ISIS Vera - 04/25/2024 5:03 PM EST OARRS reviewed, Rx sent into patient's pharmacy. [facility] CenterJlfqiuysge81-81-8549 Miscellaneous Notes* Telephone Encounter - ISIS Vera - 04/25/2024 5:03 PM EST OARRS reviewed, Rx sent into patient's pharmacy. documented in this encounterNortheast Regional Medical CenterYvqjbtqlph27-82-3258 History of Present illness Narrative* ISIS Vera - 04/20/2024 10:00 AM EST Images from the original note were not included. HPI Med Refill Additional comments: Oxycodone for a few days Last edited by Cristal Ojeda LPN on 04/20/2024 10:02 AM. Subjective Patient ID: Nick Wray is a 34 y.o. male who presents for [facility] ER follow up. Flowsheet Row Patient Outreach from 04/18/2024 in [facility] with Jayne Del Valle RN Hospital Information ED, Hospital or Halfway Facility Discharge? ED Patient has been contacted within 1 week of being seen in the ED Yes Diagnosis Rheumatoid Arthritis Flare up, single digit Discharge Date 04/15/24 Discharged To: Home Setting Discharge Hospital [facility] Engagement Admission Date 04/15/24 Medications Discharge [...] all this for 10 days. - HYDROcodone-acetaminophen ([place]) 5-325 MG tablet; Take 1 tablet by [...] Hypertension, Medication Follow Up. documented in this [facility]12-04-2024 Telephone encounter Note* Telephone Encounter - ISIS Vera - 02/02/2024 11:57 AM EST Pt was given a long taper just recently. If he is still having significant [facility] for managing the flare up. [facility] CenterKeerkhuphw96-36-2568 Miscellaneous Notes* Telephone Encounter - ISIS Vera - 02/02/2024 11:57 AM EST Pt was given a long taper just recently. If he is still having significant issues [facility] for managing the flare up. * Telephone Encounter - Jayne Us MA - 02/02/2024 11:35 AM EST Can he be given the steroid ?? documented in this [facility]12-04-2024 Telephone encounter Note* Telephone Encounter - Jayne Us MA - 02/02/2024 11:35 AM EST Can he be given the steroid ?? [facility] CenterHcwedbhlpv12-58-5070 History of Present illness Narrative* ISIS Vera - 01/21/2024 9:00 AM EST Images from the original note were not included. HPI ER Follow-up Additional comments: RA flare up Med Refill Additional comments: Would like a refill of Gabapentin and Tramadol Last edited by ISIS Vera on 01/21/2024 9:00 AM. Subjective Patient ID: Ncik Wray is a 33 y.o. male who [...] every two weeks. States a doctor at [employer] [facility] [employer] [facility] [employer], where he works, drained his finger before [...] Gout [facility] observation: gout (10/26/2016),[facility] - Gout (12/2014),Serene Lomeli Vincent - Gout/RA (01/2015) Headache 09/28/2022 CT [...] for Medication Follow Up. documented in this encounterNortheast Regional Medical CenterGrgsabzgvp07-53-3068 Telephone encounter Note* Telephone Encounter - Roseanna Elmore - 01/18/2024 1:11 PM EST oxyCODONE-acetaminophen (Percocet) 5-325 MG tablet [facility] CenterVqycmfpcnv97-93-8531 Miscellaneous Notes* Telephone Encounter - Roseanna Elmore - 01/18/2024 1:11 PM EST oxyCODONE-acetaminophen (Percocet) 5-325 MG tablet [facility] anjum documented in this encounterNortheast Regional Medical CenterRdydctjzbm51-52-4850 Telephone encounter Note* Telephone Encounter - ISIS Vera - 01/07/2024 8:35 AM EST OARRS reviewed, Rx sent into patient's pharmacy. [facility] CenterXuxwblawtq66-74-8124 Miscellaneous Notes* Telephone Encounter - ISIS Vera - 01/07/2024 8:35 AM EST OARRS reviewed, Rx sent into patient's pharmacy. 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 Catering Sous Chef: ADELA Transcribe Date/Time: Jan 04 2024 10:13A Dictated by : UMA ROGERS MD This examination was interpreted and the report reviewed and electronically signed by: CHELSEA REEVES MD on Jan 04 2024 3:12PM EST [id number] Telephone encounter Note* Telephone Encounter - Camilla Holt LPN - 01/04/2024 1:22 PM EST FYI- Insurance wants him to try generic Lidocaine patches for 30 days first. Please see below outcome. [facility]11-05-2024 Miscellaneous Notes* Telephone Encounter - Camilla Holt LPN - 01/04/2024 1:22 PM EST FYI- Insurance wants him to try generic Lidocaine patches for 30 days first. Please see below outcome. * Telephone Encounter - Camilla Holt LPN - 01/04/2024 1:21 PM EST Nick Wray (Munoz: [id number]) ISIS Rx #: [id number] Need Help? Call us at Outcome Denied [...] of therapy with generic Lidocaine patch. [facility] Policy for Medical Necessity as posted on the [facility] website and [facility] Preferred Drug List criteria were reviewed [...] through the community. Drug ZTlido 1.8% patches [facility] cloud logo Form [place] Medicaid Black[employer] Electronic PA Form ([facility] Original Claim Info 75 documented in this encounterSouthern [facility] Center11-05-2024 Telephone encounter Note * Telephone Encounter - Camilla Holt LPN - 01/04/2024 1:21 PM EST Nick Wray (Munoz: [id number]) ISIS Rx #: [id number] Need Help? Call us at Outcome Denied [...] of therapy with generic Lidocaine patch. [facility] Policy for Medical Necessity as posted on the [facility] website and [facility] Preferred Drug List criteria were reviewed [...] through the community. Drug ZTlido 1.8% patches [facility] cloud logo Form [place] Medicaid [facility] [employer] Electronic PA Form (2016 [facility]) Original Claim Info 75 [facility]11-05-2024 History of Present illness Narrative* Rosalina Roman [...] PATIENT PRESENTS WITH AN IMPLANTABLE OR ATTACHED IOS DEVELOPER: No RADIOLOGY DEPARTMENT: General X-ray: Exam(s) Completed: Lower Extremity X- Ray(s): Knee, AP / Lat / Tunne / Merchant Bilateral and Wt. Bearing and Feet, Bilateral and Wt. Bearing PERIPHERAL IV DATA: Not applicable SIGNED BY: RT Chapito(Khalil) January 04, 2024 9:41 AM documented in this encounterSouthern [facility] Medical Center11-05-2024 NoteHNO ID: [id number] Author: ROSALINA ROMAN RT(R) Service: Radiology Author Type: Home Care Manager Rn Type: Progress Notes Filed: 01/04/2024 09:42 Note [...] PATIENT PRESENTS WITH AN IMPLANTABLE OR ATTACHED IOS DEVELOPER: No RADIOLOGY DEPARTMENT: General X-ray: Exam(s) Completed: Lower Extremity X-Ray(s): Knee, AP / Lat / Tunne / Merchant Bilateral and Wt. Bearing and Feet, Bilateral and Wt. Bearing PERIPHERAL IV DATA: Not applicable SIGNED BY: RT Chapito(R) January 04, 2024 9:41 AMTimpanogos Regional HospitalHjpjtawz02-56-4192 Instructions* Patient Instructions* Delmy Boyle MD - [...] questions at your visit. documented in this encounterSouthern [place] Medical Center11-05-2024 History of Present illness Narrative* Delmy Byole MD - 01/04/2024 8:20 AM EST Images [...] arthritic flares once every 4 months. [address] senior statistical programmer Dr. Jaime in [place] who did diagnostic knee aspiration which according to patient was positive for uric acid crystals. Treated with steroids and continued allopurinol. He has not seen Dr. Jaime since 2014. In 2014, he was hospitalized in [place] for acute polyarthritis. Saw senior statistical programmer while in hospital who told him that he possibly had RA. Discharged on steroids. His PCP switched him from allopurinol to Uloric Jan 2017. He also takes colchicine prn. No reduction in frequency or severity of his joint flares with Uloric. In 2016, he has been hospitalized 7-8 times for acute joint flares. Each timehe is treated with steroids. Hospitalized at [facility] Apr 2017 for acute flare of inflammatory [...] shoulder surgery by Dr. Tc Coffey at [facility]. No post op complications. Was in PT [...] of gout 06/2023. He was seen in [facility] for gout flare. 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 Author [...] arthritic flares once every 4 months. Saw senior statistical programmer Dr. Jaime in [place] who did diagnostic knee aspiration which according to patient was positive for uric acid crystals. Treated with steroids and continued allopurinol. He has not seen Dr. Jaime since 2014. In 2014, he was hospitalized in [place] for acute polyarthritis. Saw senior statistical programmer while in hospital who told him that he possibly had RA. Discharged on steroids. His PCP switched him from allopurinol to Uloric Jan 2017. He also takes colchicine prn. No reduction in frequency or severity of his joint flares with Uloric. In 2017, he has been hospitalized 7-8 times for acute joint flares. Each time he is treated with steroids. Hospitalized at [facility] Apr 2017 for acute flare of inflammatory [...] shoulder surgery by Dr. Tc Coffey at [facility]. No post op complications. Was in PT [...] of gout 06/2023. He was seen in [facility] for gout flare. Given steroid injection [...] for: Numbness Negative for: (more content not included)...[facility]11-05-2024 Evaluation note* Diagnosis Chronic tophaceous gout- [...] of other medications documented in this encounter [facility]10-16-2024 Telephone encounter Note* Telephone Encounter - Anayeli Mosquera - 12/15/2023 1:39 PM EDT Scheduled [facility] CenterCdlzkpsipy85-07-7694 Miscellaneous Notes* Telephone Encounter - Anayeli Mosquera [...] routine medication follow up. documented in this encounterNortheast Regional Medical CenterYnyjcaydhi60-44-9176 Telephone encounter Note* Telephone Encounter - Anayeli Mosquera - 12/10/2023 11:18 AM EDT Spoke with pt he'll call back this week to schedule [facility] CenterNgajljcnxt32-90-8027 Telephone encounter Note* Telephone Encounter - ISIS Vera - 12/10/2023 11:11 AM EDT OARRS reviewed, Rx sent into patient's pharmacy. Please help pt get set up for an appt with Dr. Aceves in December for routine medication follow up. [facility] CenterLfwjlbzjen79-05-2306 Telephone encounter Note* Telephone Encounter - ISIS Vera - 11/12/2023 7:47 AM EDT OARRS reviewed, Rx sent into patient's pharmacy. [facility] CenterLpfmfekpbg48-08-5824 Miscellaneous Notes* Telephone Encounter - ISIS Vera - 11/12/2023 7:47 AM EDT OARRS reviewed, Rx sent into patient's pharmacy. * Telephone Encounter - Anayeli Mosquera - 11/11/2023 2:30 PM EDT Refill traMADol (Ultram) 50 MG tablet [facility] documented in this encounterNortheast Regional Medical CenterKtizznghen59-60-9435 Telephone encounter Note* Telephone Encounter - Anayeli Mosquera - 11/11/2023 2:30 PM EDT Refill traMADol (Ultram) 50 MG tablet [facility] CenterOdrvtrfhuk75-31-9094 Telephone encounter Note* Telephone Encounter - Camilla Holt LPN - 08/18/2023 8:50 AM EDT Mycdanielle message sent to patient informing him he will have to follow up with Dr. Aceves for tramadol or oxycodone. per provider [facility]06-19-2024 Miscellaneous Notes* Telephone Encounter - Camilla Holt LPN - 08/18/2023 8:50 AM EDT Dago message sent to patient informing him [...] 08/05/2023 encounter. Please advise. documented in this encounterSouthern [facility] Medical Center06-19-2024 Telephone encounter Note * Telephone Encounter [...] can be forwarded to his pharmacy. Thx [facility]06-17-2024 Telephone encounter Note* Telephone Encounter - Caren oVgt LPN - 08/16/2023 1:04 PM EDT Patient requesting Tramadol refill due to flare. Updated Care Everywhere. Please see 08/05/2023 encounter. Please advise. [facility]05-09-2024 Telephone encounter Note* Telephone Encounter - Delmy Boyle MD - 07/08/2023 12:45 PM EDT Duplicate request - see other encounter. [facility]05-09-2024 Miscellaneous Notes* Telephone Encounter - Delmy Boyle MD - 07/08/2023 12:45 PM EDT Duplicate request - see other encounter. documented in this encounterSouthern [facility] Medical Center05-09-2024 Telephone encounter Note * Telephone Encounter - Delmy Boyle MD - 07/08/2023 12:44 PM EDT Duplicate request - see other encounter. [facility]05-09-2024 Miscellaneous Notes* Telephone Encounter - Delmy Boyle MD - 07/08/2023 12:44 PM EDT Duplicate request - see other encounter. documented in this encounterSouthern [facility] Medical Center05-08-2024 Telephone encounter Note * Telephone Encounter [...] pharmacy and notify patient. Delmy Boyle MD [facility]05-08-2024 Miscellaneous Notes* Telephone Encounter - Delmy [...] for appointment if needed. documented in this encounterSouthern [facility] Medical Center05-08-2024 Telephone encounter Note * Telephone Encounter [...] to doctor. Routed message to Dr. Boyle [facility]05-08-2024 Telephone encounter Note* Telephone Encounter - Haylee Mariee - 07/07/2023 10:39 AM EDT Patient called to check on refill status. Stated he has upcoming appointments. Also had a flare up this past weekend. Please call patient to advise. [facility]05-06-2024 Telephone encounter Note* Telephone Encounter - Caren Vogt LPN - 07/05/2023 2:07 PM EDT One time order. Patient needs to call office for appointment if needed. [facility]04-25-2024 History of Present illness Narrative* Delmy [...] arthritic flares once every 4 months. Saw senior statistical programmer Dr. Jaime in [place] who did diagnostic knee aspiration which according to patient was positive for uric acid crystals. Treated with steroids and continued allopurinol. He has not seen Dr. Jaime since 2014. In 2014, he was hospitalized in [place] for acute polyarthritis. Saw senior statistical programmer while in hospital who told him that he possibly had RA. Discharged on steroids. His PCP switched him from allopurinol to Uloric Jan 2017. He also takes colchicine prn. No reduction in frequency or severity of his joint flares with Uloric. In 2016, he has been hospitalized 7-8 times for acute joint flares. Each timehe is treated with steroids. Hospitalized at [facility] Apr 2017 for acute flare of inflammatory [...] shoulder surgery by Dr. Tc Coffey at [facility]. No post op complications. 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 documented in this encounterSouthern [facility] Center02-05-2024 Telephone encounter Note * Telephone Encounter - María Sepulveda MA - 04/05/2023 8:57 AM EST Nick called leaving a VM stating he hurt his back over the weekend and would like to know if he canget a muscle relaxer for it or if he will need an appointment for it? [facility] CenterKsrccxrucs90-22-6338 Miscellaneous Notes* Telephone Encounter - María Sepulveda MA - 04/05/2023 8:57 AM EST Nick called leaving a VM stating he hurt his back over the weekend and would like to know if he canget a muscle relaxer for it or if he will need an appointment for it? documented in this encounterNortheast Regional Medical CenterEkdpbfdczz69-81-6566 Miscellaneous Notes* Telephone Encounter - Delmy Boyle [...] refill of a tapered prednisone sent to [facility] in [place], . Please advise. Patient has been identified by name and birthdate. Duration of symptoms: N/A Person calling: self Call patient at: at home [phone] (home) [phone] (cell) Was an appointment scheduled: No Closing statement: Results or non-symptom based questions: Thank you for calling [facility], your call will be returned within the next business day. [place] documented in this encounterSouthern [facility] Medical Center05-01-2023 Miscellaneous Notes* Telephone Encounter - Deidre [...] Days Visit Type Date Time Department [facility] 08/14/2022 11:40 AM [facility] REJ CBC: None on file in [...] (current) use of medications documented in this encounterSouthern [facility] Center02-01-2023 Miscellaneous Notes* Telephone Encounter - Delmy [...] 365 Days Visit Type Date Time Department [facility] 08/14/2022 11:40 AM [facility] RE[facility] CBC: None on file in [...] (current) use of medications documented in this encounterSouthern [facility] Center11-03-2022 Instructions* Patient Instructions* Delmy Boyle MD [...] questions at your visit. documented in this encounterSouthern [facility] Medical Center11-03-2022 History of Present illness Narrative* Delmy [...] arthritic flares once every 4 months[address] senior statistical programmer Dr. Jaime in [place] who did diagnostic knee aspiration which according to patient was positive for uric acid crystals. Treated with steroids and continued allopurinol. He has not seen Dr. Jaime since 2014. In 2014, he was hospitalized in [place] for acute polyarthritis. Saw senior statistical programmer while in hospital who told him that he possibly had RA. Discharged on steroids. His PCP switched him from allopurinol to Uloric Jan 2017. He also takes colchicine prn. No reduction in frequency or severity of his joint flares with Uloric. In 2016, he has been hospitalized 7-8 times for acute joint flares. Each timehe is treated with steroids. Hospitalized at [facility] Apr 2017 for acute flare of inflammatory [...] shoulder surgery by Dr. Tc Coffey at [facility]. No post op complications. 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 Requested Prescriptions Signed Prescriptions Disp Refills allopurinol (ZYLOPRIM) 300 mg tablet 180 tablet 0 Sig: TAKE 1 TABLET BY MOUTH TWICE A DAY Authorizing Provider: DELMY BOYLE MD * Telephone Encounter - Caren Gomezdonovan GIRON - 12/19/2021 3:15 PM EDT Most recent [...] Visit Type Date Time Department [facility]01/[facility]22 11:20 AM [facility] REJ CBC: None on file in [...] per month 05/30/22 05/30/21 09/11/21 Auth. provider: Delym Boyle MD Open Future (Single Instance) Lab Orders None documented in this encounterSouthern [facility]10-12-2022 Discharge summary Author Nicola pelayo [facility] December 10, 2021 10:19amNote Date/TimeOct2021 10:19[place] [address] Discharge Summary Signed Patient: Nick Wray MR#: [id number] : 1990 Acct:[id number] Age/Sex: 31 / M Adm Date: 2 Loc: Room: [address] [place] [address]: Adam Young MD Copies to: [...] called EMS and he was taken to [facility] and subsequently brought here.? He [...] No activity restrictions. Instructions: Depression, Adult (DC), [facility] [place] Instructions Stand Alone Forms: [...] DAY NEEDED FOR 30 DAYS Follow [facility] [Outside] ( manager primary: (Insert date/time here) Therapy:? (insert date/time here) Intake: (Insert date/time here) Please bring a copy of your photo ID, insurance card, and proof of household income.? Psychiatry: (Insert date/time here) Group: (Insert date/time here ) ) Documented By: Nicola Leyva MD 2 1016 Signed By: <Electronically signed by Nicola Leyva MD> 12/10/21 1019 [facility] Work Phone: 1(647) 898-931610-11-2022 Progress note Author Nicola pelayo [facility] December 09, 2021 10:42amNote Date/TimeOct2021 8:48[place] [address] Psychiatry Progress Note Signed Patient: Nick Wray MR#: [id number] : 1990 Acct:[id number] Age/Sex: 31 / M Adm Date: 2 Loc: Room: [address] [place] [address] Type : ADM IN Attending Dr: Adam [...] Leyva MD> 12/09/21 1042 [facility] Work Phone: 1(576) 114-130410-10-2022 History and physical note Author Nicola pelayo [facility] December 08, 2021 1:32pmNote Date/TimeOct2021 12:43pm[place] [address] Psychiatry H&P Signed Patient: Nick Wray MR#: [id number] : 1990 Acct:[id number] Age/Sex: 31 / M Adm Date: 2 Loc: Room: [address] [place] [address] Type: ADM IN Attending Dr: Adam Young [...] called EMS and he was taken to [facility] and subsequently brought here. He [...] is eating okay. Rates his depression today /10 and anxiety /10. 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 Work Phone: 1(750) 864-679002-25-2018 History of Past illness Narrative* Problem Noted DateResolved DateRheumatoid arthritis flare documented as of this encounter (statuses as of 08/05/2021) [facility]2018 History of Past illness Narrative* ProblemNoted Date Resolved DateRheumatoid arthritis flaredocumented as of this encounter (statuses as of 12/22/2021) [facility]2018 History of Past illness Narrative* ProblemNoted Date Resolved DateRheumatoid arthritis flaredocumented as of this encounter (statuses as of 01/01/2022) [facility] History of Past illness Narrative* ProblemNoted Date Resolved DateRheumatoid arthritis flaredocumented as of this encounter (statuses as of 04/02/2022) [facility] History of Past illness Narrative* ProblemNoted Date Resolved DateRheumatoid arthritis flaredocumented as of this encounter (statuses as of 06/30/2022) [facility] History of Past illness Narrative* ProblemNoted Date Diagnosed DateResolved DateRheumatoid arthritis flare documented as of this encounter (statuses as of 11/14/2022) [facility]2018 History of Past illness Narrative* ProblemNoted Date Diagnosed DateResolved DateRheumatoid arthritis flare documented as of this encounter (statuses as of 11/14/2022) [facility]* Diagnosis 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 [facility] Work Phone: evaluation note* Diagnosis Onset Date Resolution Status Major depressive disorder, recurrent, mo derate acute 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) documented in this encounter [facility]* Diagnosis Idiopathic chronic gout of multiple sites with tophus- Primary Chronic gouty arthropathy with tophus (tophi) Encounter for long-term (current) use of medications Encounter for long-term (current) use of other medications Stage 3 chronic kidney disease, unspecified whether stage 3a or 3b CKD (HCC) documented in this encounter [facility]* Diagnosis 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) documented in this encounter [facility]* Diagnosis 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) documented in this encounter [facility]* Diagnosis Other chronic pain- Primary documented in this encounter [facility] note* Diagnosis Chronic tophaceous gout- Primary Chronic gouty arthropathy with tophus (tophi) Encounter for long-term (current) use of medications Encounter for long-term (current) use of other medications Stage 3 chronic kidney disease, unspecified whether stage 3a or 3b CKD (HCC) 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) documented [facility] encounter [facility]* Diagnosis 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) documented [facility] this encounter [facility]* Diagnosis 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) documented [facility] encounter [facility]* Diagnosis Onset Date Resolution Status Acute pansinusitis [facility] Work Phone: Evaluation note* Diagnosis Anxiety Anxiety state, unspecified documented in this encounter [facility] HealthcareEvaluation note* Diagnosis Anxiety- Primary Anxiety [...] rheumatoid factor (CMS/HCC) documented in this encounter [facility] Healthcare[facility] note* 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 Encounter for long-term (current) use of medications Encounter for long-term (current) use of other medications [facility] Anxiety- Primary Anxiety state, [...] initial encounter Stage 3a chronic kidney disease ([facility]-HCC) Rheumatoid arthritis involving multiple sites with positive [...] rheumatoid factor (HCC) documented in this encounter [facility] HealthcareEvaluation note* Diagnosis 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) documented in this encounter [facility]* Diagnosis Anxiety- Primary Anxiety state, [...] rheumatoid factor (HCC) documented in this encounter [facility] HealthcareEvaluation note* Diagnosis Idiopathic chronic gout of multiple sites with tophus- Primary Chronic gouty arthropathy with tophus (tophi) documented in this encounter [facility]* Diagnosis Anxiety- Primary Anxiety state, [...] rheumatoid factor (HCC) documented in this encounter [facility] HealthcareHospital Discharge instructions Additional Instructions Rest Apply ice to affected area Avoid electronics Follow-up with neurology on Wednesday Tylenol Motrin if needed for discomfort Return here if you develop any numbness, tingling, unilateral weakness, unsteady gait, confusion or any other concernsSt. [facility] Work Phone: Hospital Discharge instructions Additional Instructions Regular diet. No activity restrictions.[facility] Work Phone: Reason for referral (narrative)* Diagnostic Procedure Only (Routine) - ClosedSpecialtyDiagnoses / ProceduresReferred By Contact Referred To ContactXR IMAGING Diagnoses Chronic tophaceous gout Encounter for long-term (current) use of medications Procedures XR FOOT GENERAL 3V AP/LAT/OBL BILATERAL RADEX FOOT COMPLETE MINIMUM 3 VIEWS Delmy Boyle [place] [id number] [place] [address] [place] [address] Referral IDStatusReasonStart DateExpiration DateVisits RequestedVisits [id number] Auto-Generated Referral * Diagnostic Procedure Only (Routine) - ClosedSpecialtyDiagnoses / Procedures Referred By ContactReferred To ContactXR IMAGING Diagnoses 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 Procedures XR KNEE GENERAL 4V AP BOTH/PA BOTH/LAT/MERC BILATERAL RADIOLOGIC EXAM KNEE COMPLETE 4/MORE VIEWS Delmy Boyle MD [address] [place] [address] [place] [address] Referral IDStatusReasonStart DateExpiration DateVisits RequestedVisits [id number] Auto-Generated Referral [facility] for visit Narrative* [place] Prior Authorization (Routine) - AuthorizedSpecialtyDiagnoses / ProceduresReferred By ContactReferred To Contact Diagnoses Idiopathic chronic gout of multiple sites with tophus Procedures PEGLOTICASE INJECTION Delmy Boyle MD [address] [place] [address] Phone: tel: fax: Hematology [address] [place] [address], [place] [address] Phone: tel: Referral IDStatusReasonStmetamora DateExpiration DateVisits RequestedVisits [id number]/313 [facility] Summary Purpose Family History No Family History Records Found Relationship Condition Age at Onset Recorded Date/T vish father Hypertension Unknown Ingrown nailUnknownNot SpecifiedHypertensionUnknownbrotherHypertensionUnknown sisterHypertensionUnknownDepressionUnknownfamily memberGoutUnknownSuicideUnknown Advance Directives No Advanced Directives Records FoundDocuments on File TypeDate RecordedPatient RepresentativeExplanationAdvance Directive(s)04/25/2017 12:32 PM Advance Directive Response Recorded Date/ Time Advance Directives No September 27 7:04pm Chief Complaint and Reason for Visit Chief Complaint sent by [facility]/blurry vision/head swell Chief Complaint sent [...] osteoarthritis [place] [address] [place] [address] Referral IDStatusCherryasonStart DateExpiration DateVisits RequestedVisits [id number] / Procedures Referred By ContactReferred To ContactXR IMAGING Diagnoses 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 Procedures XR KNEE GENERAL 4V AP BOTH/PA BOTH/LAT/MERC BILATERAL RADIOLOGIC EXAM KNEE COMPLETE 4/[place] [address] [place] [address] [place] [address] Referral IDStatusReasonStart DateExpiration DateVisits RequestedVisits [id number] Auto-Generated Referral [id number] / ProceduresReferred By ContactReferred To ContactOrthopedics Diagnoses Other secondary osteoarthritis of multiple sites Procedures CONSULT TO ORTHOPAEDICS OFFICE/OUTPATIENT NEW HIGH MDM 60 [place] [address] [place] [address] Referral IDStatusReasonStart DateExpiration DateVisits RequestedVisits [id number] PCP Requested Referral [id number] / ProceduresReferred By ContactReferred To ContactXR IMAGING Diagnoses Chronic tophaceous gout Encounter for long-term (current) use of medications Procedures XR FOOT GENERAL 3V AP/LAT/OBL BILATERAL RADEX FOOT COMPLETE MINIMUM 3 [place] [address] [place] [address] [place] [address] Referral IDStatusReasonElk DateExpiration DateVisits RequestedVisits [id number] Auto-Generated Referral Additional Source Comments (unrecognized sect ion and content) No Status Records FoundNo Status Records FoundNo Status Records FoundNo Status Records FoundNo Status Records FoundNo Status Records FoundNo Status Records FoundNo Status Records FoundNo Status Records Found INFORMATION SOURCE (unrecogn ized section and content) DATE CREATED AUTHOR 07/23/2018 [facility] DATE CREATED AUTHOR AUTHOR'S ORGANIZ ATION 11/11/2021 [facility] DATE CREATED AUTHOR AUTHOR'S ORGANIZ ATION 08/07/2022 [facility] DATE CREATED AUTHOR AUTHOR'S ORGANIZ ATION 2023 [facility] DATE CREATED AUTHOR AUTHOR'S ORGANIZ ATION 02/26/2023 [facility] DATE CREATED AUTHOR AUTHOR'S ORGANIZ ATION 09/13/2023 [facility] DATE CREATED AUTHOR AUTHOR'S ORGANIZ ATION 01/05/2024 [facility] DATE CREATED AUTHOR AUTHOR'S ORGANIZ ATION 11/09/2024 [facility] DATE CREATED AUTHOR AUTHOR'S ORGANIZ ATION 12/29/2024 [facility] Source Comments (unrecognize d section and content) In the event this informatio n is protected by the Federal Confidentiality of Alcohol and Drug Abuse Patient Records regulations: The Federal rules restrict any use of the information to criminally investigate or prosecute any alcohol or drug abuse patient.[facility] CenterIn the event this information is protected by the Federal Confidentiality of Alcohol and Drug Abuse Patient Records regulations: The Federal rules restrict any use of the information to criminally investigate or prosecute any alcohol or drug abuse patient.[facility] CenterIn the event this information is protected by the Federal Confidentiality of Alcohol and Drug Abuse Patient Records regulations: The Federal rules restrict any use of the information to criminally investigate or prosecute any alcohol or drug abuse patient.[facility] CenterIn the event this information is protected by the Federal Confidentiality of Alcohol and Drug Abuse Patient Records regulations: The Federal rules restrict any use of the information to criminally investigate or prosecute any alcohol or drug abuse patient.[facility] CenterIn the event this information is protected by the Federal Confidentiality of Alcohol and Drug Abuse Patient Records regulations: The Federal rules restrict any use of the information to criminally investigate or prosecute any alcohol or drug abuse patient.[facility] CenterIn the event this information is protected by the Federal Confidentiality of Alcohol and Drug Abuse Patient Records regulations: The Federal rules restrict any use of the information to criminally investigate or prosecute any alcohol or drug abuse patient.[facility] CenterIn the event this information is protected by the Federal Confidentiality of Alcohol and Drug Abuse Patient Records regulations: The Federal rules restrict any use of the information to criminally investigate or prosecute any alcohol or drug abuse patient.[facility] CenterIn the event this information is protected by the Federal Confidentiality of Alcohol and Drug Abuse Patient Records regulations: The Federal rules restrict any use of the information to criminally investigate or prosecute any alcohol or drug abuse patient.[facility] CenterIn the event this information is protected by the Federal Confidentiality of Alcohol and Drug Abuse Patient Records regulations: The Federal rules restrict any use of the information to criminally investigate or prosecute any alcohol or drug abuse patient.[facility] CenterIn the event this information is protected by the Federal Confidentiality of Alcohol and Drug Abuse Patient Records regulations: The Federal rules restrict any use of the information to criminally investigate or prosecute any alcohol or drug abuse patient.[facility] CenterIn the event this information is protected by the Federal Confidentiality of Alcohol and Drug Abuse Patient Records regulations: The Federal rules restrict any use of the information to criminally investigate or prosecute any alcohol or drug abuse patient.[facility] CenterIn the event this information is protected by the Federal Confidentiality of Alcohol and Drug Abuse Patient Records regulations: The Federal rules restrict any use of the information to criminally investigate or prosecute any alcohol or drug abuse patient.[facility] CenterIn the event this information is protected by the Federal Confidentiality of Alcohol and Drug Abuse Patient Records regulations: The Federal rules restrict any use of the information to criminally investigate or prosecute any alcohol or drug abuse patient.[facility] CenterIn the event this information is protected by the Federal Confidentiality of Alcohol and Drug Abuse Patient Records regulations: The Federal rules restrict any use of the information to criminally investigate or prosecute any alcohol or drug abuse patient.[facility] CenterIn the event this information is protected by the Federal Confidentiality of Alcohol and Drug Abuse Patient Records regulations: The Federal rules restrict any use of the information to criminally investigate or prosecute any alcohol or drug abuse patient.[facility] CenterIn the event this information is protected by the Federal Confidentiality of Alcohol and Drug Abuse Patient Records regulations: The Federal rules restrict any use of the information to criminally investigate or prosecute any alcohol or drug abuse patient.[facility] CenterIn the event this information is protected by the Federal Confidentiality of Alcohol and Drug Abuse Patient Records regulations: The Federal rules restrict any use of the information to criminally investigate or prosecute any alcohol or drug abuse patient.[facility] CenterIn the event this information is protected by the Federal Confidentiality of Alcohol and Drug Abuse Patient Records regulations: The Federal rules restrict any use of the information to criminally investigate or prosecute any alcohol or drug abuse patient.[facility] CenterIn the event this information is protected by the Federal Confidentiality of Alcohol and Drug Abuse Patient Records regulations: The Federal rules restrict any use of the information to criminally investigate or prosecute any alcohol or drug abuse patient.[facility] CenterIn the event this information is protected by the Federal Confidentiality of Alcohol and Drug Abuse Patient Records regulations: The Federal rules restrict any use of the information to criminally investigate or prosecute any alcohol or drug abuse patient.[facility] CenterIn the event this information is protected by the Federal Confidentiality of Alcohol and Drug Abuse Patient Records regulations: The Federal rules restrict any use of the information to criminally investigate or prosecute any alcohol or drug abuse patient.[facility] CenterIn the event this information is protected by the Federal Confidentiality of Alcohol and Drug Abuse Patient Records regulations: The Federal rules restrict any use of the information to criminally investigate or prosecute any alcohol or drug abuse patient.[facility] Care Teams (unrecognized sec tion [...] MemberRelationshipSpecialtyStart DateEnd Date Leydi Aceves PCP - GeneralFami Jojfythu74/9/15 Team Status: Inactive Member Role Status Dates Leydi Aceves MD Primary Care Provider Active Juvenal Simth [facility]Doctors Hospital ProviderActive Team Status: Inactive Member Role Status Dates Ledyi Aceves MD Primary Care Provider Active Samantha Penny Provider, Attending ProviderActiveTeam Member RelationshipSpecialtyStart DateEnd Date [facility]ves [facility] - [facility]15Team MemberRelationshipSpecialtyStart DateEnd Date Leydi Aceves PCP - [facility]01/07/15Team MemberRelationshipSpecialtyStart DateEnd Date Leydi Aceves PCP - [facility]01/07/15Team MemberRelationshipSpecialtyStart DateEnd Date Leydi Aceves PCP - [facility]01/07/15Team MemberRelationshipSpecialtyStart DateEnd Date Leydi Aceves MD PCP - [facility]01/07/15Team MemberRelationshipSpecialtyStart DateEnd Date Leydi Aceves MD PCP - [facility]01/07/15Te MemberRelationshipSpecialtyStart DateEnd Date Leydi Aceves MD [address] [place] [address] PCP [facility]07/29/22 Leydi Aceves MD [address] [place] [address] [facility]05/30/22Te MemberRelationshipSpecialtyStart DateEnd Date Leydi Aceves MD [address] [place] [address] [facility]07/29/22 Leydi Aceves MD [address] [place] [address] [facility]05/30/22Te MemberRelationshipSpecialtyStart DateEnd Date Leydi Aceves MD [facility] - [facility]01/07/15Team MemberRelationshipSpecialtyStart DateEnd Date Leydi Aceves MD PCP - [facility]01/07/15Team MemberRelationshipSpecialtyStart DateEnd Date Leydi Aceves MD [facility]01/07/15Te MemberRelationshipSpecialtyStart DateEnd Date Leydi Aceves MD [address] [place] [address] [facility] - [facility]07/[facility]/22 Leydi Aceves MD [address] [place] [address] PCP - [facility]05/30/22Wednesday, [place], [address] [place] [address] [facility]06/04/23Team MemberRelationshipSpecialty Start DateEnd Date Leydi Aceves MD [address] [place] [address] PCP - [facility]07/29/22 Leydi Aceves MD [address] [place] [address] PCP - [facility]05/30/22Wednesday, [place], [address] [place] [address] Licensed Practical NurseSouth [place] [facility]23Team MemberRelationshipSpecialty Start DateEnd Date Leydi Aceves MD [address] [place] [address] PCP - [facility]07/29/22 Leydi Aceves MD [address] [place] [address] PCP [facility]05/30/22Wednesday, [place], [address] LIAISON [address] [place] [address] [facility]06/04/23Team MemberRelationshipSpecialty Start DateEnd Date Leydi Aceves MD PCP - [facility]01/07/15Te MemberRelationshipSpecialtyStart DateEnd Date Leydi Aceves MD PCP - [facility]01/07/15Te MemberRelationshipSpecialtyStart DateEnd Date Leydi Aceves MD [facility]01/07/15Te MemberRelationshipSpecialtyStart DateEnd Date Leydi Aceves MD [address] [place] [address] [facility]07/29/22 Leydi Aceves MD [address] [place] [address] [facility]05/30/22Wednesday, [place], [address] LIAISON [address] [place] [address] [facility]06/04/23Te MemberRelationshipSpecialty Start DateEnd Date Leydi Aceves MD [address] [place] [address] [facility]07/29/22 Leydi Aceves MD [address] [place] [address] [facility]05/30/22Wednesday, [place], [address] LIAISON [address] [place] [address] [facility]06/04/23Te MemberRelationshipSpecialty Start DateEnd Date Leydi Aceves MD [address] [place] [address] PCP - [facility]07/29/22 Leydi Aceves MD [address] [place] [address] [facility]05/30/22WednesdayAlma LPN [address] [place] [address] [facility]06/04/23Te MemberRelationshipSpecialty Start DateEnd Date Leydi Aceves MD [address] [place] [address] PCP - [facility]07/29/22 Leydi Aceves MD [address] [place] [address] [facility]05/30/22WednesdayAlma LPN [address] [place] [address] [facility]06/04/23Te MemberRelationshipSpecialty Start DateEnd Date Leydi Aceves MD [address] [place] [address] PCP - [facility]07/29/22 Leydi Aceves MD [address] [place] [address] PCP [facility]05/30/22Wednesday, BREE Marquez [address] [place] [address] [facility]06/04/23Team MemberRelationshipSpecialty Start DateEnd Date Leydi Aceves MD [address] [place] [address] PCP - [facility]07/29/22 Leydi Aceves MD [address] [place] [address] [facility]05/30/22Wednesday, BREE Marquez [address] [place] [address] Licensed [facility]06/04/23Te MemberRelationshipSpecialty Start DateEnd Date Leydi Aceves MD [address] [place] [address] PCP - [facility]07/29/22 Leydi Aceves MD [address] [place] [address] [facility]05/30/22Wednesday, MILES MarquezN [address] [place] [address] [facility]06/04/23Te MemberRelationshipSpecialty Start DateEnd Date Leydi Aceves MD [address] [place] [address] [facility]07/29/22 Leydi Aceves MD [address] [place] [address] PCP [facility]05/30/22 Jayne Del Valle, RN Licensed Practical [facility] Medicine04/07/24Te MemberRelationshipSpecialty Start DateEnd Date Leydi Aceves MD [address] [place] [address] PCP - [facility]07/29/22 Leydi Aceves MD [address] [place] [address] [facility]05/30/22 Jayne Del Valle, RN [facility]04/07/24Te MemberRelationshipSpecialty Start DateEnd Date Leydi Aceves MD [address] [place] [address] PCP - [facility]07/29/22 Leydi Aceves MD [address] [facility] [address] [place] [address] [facility]05/30/22 Jayne Del Valle, DELMIS Licensed Practical [facility] Medicine04/07/24Te MemberRelationshipSpecialty Start DateEnd Date Leydi Aceves MD [address] [place] [address] PCP - [facility]07/29/22 Leydi Aceves MD [address] [place] [address] PCP [facility]05/30/22 Jayne Del Valle, RN Licensed [facility]04/07/24Team MemberRelationshipSpecialty Start DateEnd Date Leydi Aceves MD [address] [place] [address] PCP - [facility]07/29/22 Leydi Aceves MD [address] [place] [address] PCP [facility]05/30/22 Jayne Del Valle, DELMIS [facility]04/07/24Team MemberRelationshipSpecialty Start DateEnd Date Leydi Aceves MD [address] [place] [address] PCP - [facility]07/29/22 Leydi Aceves MD [address] [place] [address] [facility]05/30/22 Merry Paz LPN 05/19/24Team MemberRelationshipSpecialtyStart DateEnd Date Leydi Aceves MD [address] [place] [address] PCP [facility]07/29/22 Leydi Aceves MD [address] [place] [address] PCP [facility]05/30/22 [facility] 05/19/24Team MemberRelationshipSpecialtyStart DateEnd Date Leydi Aceves MD [address] [place] [address] PCP - [facility]07/29/22 Leydi Aceves MD [address] [place] [address] PCP [facility]05/30/22 [facility], [facility] 05/19/24Team MemberRelationshipSpecialtyStart DateEnd Date Leydi Aceves MD [address] [place] [address] PCP - [facility]07/29/22 Leydi Aceves MD [address] [place] [address] [facility] - [facility]05/30/22 [facility], [facility] 05/19/24Team MemberRelationshipSpecialtyStart DateEnd Date Leydi Aceves MD [address] [place] [address] PCP - [facility]07/29/22 Leydi Aceves MD [address] [place] [address] [facility]05/30/22 [facility], [facility] 05/19/24Team MemberRelationshipSpecialtyStart DateEnd Date Leydi Aceves MD [address] [place] [address] [facility]07/29/22 Leydi Aceves MD [address] [place] [address] PCP - [facility]05/30/22 Merry Paz, [facility] 05/19/24Team MemberRelationshipSpecialtyStart DateEnd Date Leydi Aceves MD [address] [place] [address] PCP - [facility]07/29/22 Leydi Aceves MD [address] [place] [address] PCP - [facility]05/30/22 Merry Paz, [facility] 05/19/24Te MemberRelationshipSpecialtyStart DateEnd Date Leydi Aceves MD [address] [place] [address] PCP - [facility]07/29/22 Leydi Aceves MD [address] [place] [address] PCP - [facility]05/30/22 [facility] 05/19/24Te MemberRelationshipSpecialtyStart DateEnd Date Leydi Aceves MD [address] [place] [address] PCP - [facility]07/29/22 Leydi Aceves MD [address] [place] [address] PCP - [facility]05/30/22 Merry Paz LPN [address] [place] [address] 05/19/24Team MemberRelationshipSpecialtyStart DateEnd Date Leydi Aceves MD [address] [place] [address] [facility]07/29/22 Ledyi Aceves MD [address] [place] [address] PCP [facility]05/30/22 Merry Paz LPN [address] [place] [address] 05/19/24Team MemberRelationshipSpecialtyStart DateEnd Date Leydi Aceves MD [address] [place] [address] PCP - [facility]07/29/22 Leydi Aceves MD [address] [place] [address] [facility]05/30/22 Merry Paz LPN [address] [place] [address] 05/19/24Team MemberRelationshipSpecialtyStart DateEnd Date Leydi Aceves MD [address] [place] [address] P[facility] - [facility]07/29/22 Leydi Aceves MD [address] [place] [address] PCP - [facility]05/30/22 Merry Paz LPN [address] [place] [address] 05/19/24Team MemberRelationshipSpecialtyStart DateEnd Date Leydi Aceves MD [address] [place] [address] PCP - [facility]07/29/22 Leydi Aceves MD [address] [place] [address] PCP [facility]05/30/22 Merry Paz LPN [address] [place] [address] 05/19/24Team MemberRelationshipSpecialtyStart DateEnd Date Leydi Aceves MD PCP - [facility]01/07/15Team MemberRelationshipSpecialtyStart DateEnd Date Leydi Aceves MD PCP - [facility]01/07/15Team MemberRelationshipSpecialtyStart DateEnd Date Leydi Aceves MD [address] [place] [address] PCP - [facility]07/29/22 Leydi Aceves MD [address] [place] [address] PCP [facility]05/30/22 Merry Paz LPN [address] [place] [address] 05/19/24Team MemberRelationshipSpecialtyStart DateEnd Date Leydi Aceves MD [address] [facility] [address] [place] [address] PCP - [facility]07/29/22 Leydi Aceves MD [address] [facility] [address] [place] [address] PCP - [facility]05/30/22 Merry Paz LPN [address] [facility] [address] [place] [address] 05/19/24Team MemberRelationshipSpecialtyStart DateEnd Date Leydi Aceves MD [facility]/15Team MemberRelationshipSpecialtyStart DateEnd Date Leydi Aceves MD [facility]/07/15Team MemberRelationshipSpecialtyStart DateEnd Date Leydi Aceves MD [facility]/07/15Team MemberRelationshipSpecialtyStart DateEnd Date Leydi Aceves MD [address] [facility] [address] [place] [address] [facility]07/29/22 Leydi Aceves MD [address] [facility] [address] [place] [address] PCP - [facility]05/30/22 Merry Paz LPN [address] [place] [address] 05/19/24Team MemberRelationshipSpecialtyStart DateEnd Date Leydi Aceves MD [address] [place] [address] PCP - [facility]07/29/22 Leydi Aceves MD [address] [place] [address] PCP - [facility]05/30/22WednesdayAlma LPN [address] [place] [address] Licensed Practical NurseFamily Medicine Jayne Del Valle, RN [address] [place] [address] Licensed Practical NurseFamily Medicine Merry Paz LPN [address] [facility] [address] [place] [address] 05/19/24 Goals (unrecognized section and content) Goals may be documented in a n alternate sectionGoals may be documented in an alternate section Reason for Visit (unrecogniz ed section and content) ReasonCommentsRefill RequestReasonCommentsFollow UpReasonCommentsPatient Request ReasonOnset DateCommentsMed [id number]tisReason Onset DateCommentsRefill Wqywkgl01/06/2024ReasonOnset DateCommentsRefill Request 4ReasonOnset DateCommentsMed Ynnlwc374ReasonOnset DateComments Med Xafbxc284ReasonCommentsGoutFollow upReasonCommentsRadio Gen RMP SpecialtyDiagnoses / ProceduresReferred By ContactReferred To ContactXR IMAGING Diagnoses 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 Procedures XR KNEE GENERAL 4V AP BOTH/PA BOTH/LAT/MERC BILATERAL RADIOLOGIC EXAM KNEE COMPLETE 4/[place] [address] [place] [address] [place] [address] Referral IDStatusReasonStart DateExpiration DateVisits RequestedVisits [id number] Auto-Generated Referral 1ReasonOnset DateCommentsMed [id number] Follow-upRA flare upMed RefillWould like a refill of Gabapentin and Tramadol ReasonOnset DateCommentsMed Ifbglq094ReasonOnset DateCommentsMed Refill 4ReasonOnset DateCommentsMed Khwomx614ReasonOnset DateComments Med Vrhmby2311/08/2023easonCommentsMed RefillOxycodone for a few daysReasonOnset DateCommentsMed Jgxuwk9504/25/2024ReasonOnset DateCommentsMed Pkmzav9705/02/2024 ReasonOnset DateCommentsMed Pawddv0205/10/2024ReasonOnset DateCommentsMed Refill 05/29/2024ReasonOnset DateCommentsMed Dnqulq4105/30/2024ReasonOnset DateComments Med Fxifmo7106/05/2024ReasonOnset DateCommentsMed Vchsjc8906/12/2024ReasonOnset Date CommentsMed Rdcfxb6306/19/2024ReasonCommentsMed RefillReasonOnset DateCommentsMed Dxpuyw4206/26/2024ReasonOnset DateCommentsMed Zgaqip7606/28/2024ReasonOnset Date CommentsMed Yjifyg3607/03/2024ReasonOnset DateCommentsMed Vwaebh6107/07/2024Reason Onset DateCommentsMed Iqbqrh0907/11/2024ReasonOnset DateCommentsMed Refill 07/26/2024ReasonOnset DateCommentsMed Ikkxup7709/04/2024ReasonCommentsSuture / Staple RemovalReasonOnset DateCommentsMed Ateynr8810/02/2024ReasonComments Insurance AuthorizationFebuxostatReasonCommentsMed RefillHydrocodoneReason CommentsOrdersKrystexxa OrdersReasonCommentsPatient UpdateResultsUric AcidReason Onset DateCommentsMed Gljufh2912/05/2024 FOR RECORDS PERTAINING TO PATIENTS WHO ARE [...] BE BASED ON THE PRIMARY CLINICAL RECORDS. [facility] provides no warranty or guarantee of the accuracy or completeness of information in this document.
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
--- OUTSIDE RECORDS SUMMARY | 2024-12-31 20:45 | XMS_ITS | Encounter Summary ---
Author Organization [facility] Address [address] [place] [address] Care Team Providers Care Director Of Informatics Name Role Phone Malcolm Cid MD Primary Care Provider [phone] Source Comments In the event this information is protected by the Federal Confidentiality of Alcohol and Drug AbusePatient Records regulations: The Federal rules restrict any use of the information to criminally investigate or prosecute any alcohol or drug abuse patient.[facility] Reason for Visit * ReasonCommentsRefill Request Encounter Details DateTypeDepartmentCare Team (Latest Contact Info)Zxkpvzahttm39/27/2025Refill Rheumatology [address] [place] [address] [place] [address] [place], [place] [address] Refill Request Social History Tobacco UseTypesPacks/DayYears UsedDateSmoking Tobacco: NeverSmokeless Tobacco: CurrentChewPHQ-2AnswerDate RecordedPHQ-2 xprxu0544Area Deprivation Index AnswerDate RecordedNational Score (1-100), lower number is lower risk87 08/14/2022State Score (1-10), lower number is lower prfx4773Data from: https://www.neighborhoodatlas.[facility]/. Last address used for [address]08/14/2022Sex and Gender InformationValueDate Recorded Sex Assigned at HnqbcKxct52/10/2020 12:50 PM EDTLegal NvpFczb06/09/2015 3:20 PM ESTGender JaxbkmulKeqd07/10/2020 12:50 PM EDTSexual OrientationStraight 11/09/2019 12:50 PM EDTdocumented as of this encounter Functional Status * Are you deaf or do you have serious difficulty hearing?AnswerDate of PzssokqyojBxdvmvKv23/26/2018 6:15 PM Domi De León RN * Are you blind or do you have serious difficulty seeing, even when wearing glasses?AnswerDate of TcctjpinwvHkxaiiDc09/26/2018 6:15 PM Domi De León RN * Do you have serious difficulty walking or climbing stairs?AnswerDate of UomugdwekjZujaooAz41/26/2018 6:15 PM Domi De León RN * Do you have difficulty dressing or bathing?AnswerDate of AssessmentAuthorNo 04/26/2017 6:15 PM Domi De León RN * Because of a physical, mental, or emotional condition, do you have difficulty doing errands alone such as visiting a doctor's office or shopping?AnswerDate of YiqupfnplsWqihkdPf60/26/2018 6:15 PM Domi De León RN documented as of this encounter Mental Status * Because of a physical, mental, or emotional condition, do you have serious difficulty concentrating, remembering, or making decisions?AnswerEntry Date JwowjuNr74/26/2018 6:15 PM Domi De León RN documented in this encounter Miscellaneous Notes * Telephone Encounter - Delmy Castro MD - 12/25/2024 9:15 PM EDT The following approved medication requests have been transmitted electronically. Requested Prescriptions Signed Prescriptions Disp Refills methotrexate 2.5 mg tablet 72 tablet 0 Sig: TAKE 6 TABLETS BY MOUTH ONE TIME A WEEK. HOLD IF YOU HAVE INFECTION OR FEVERS 100.4 F OR HIGHER. MAY RESUME ONCE INFECTION RESOLVED. LABS EVERY 3 MONTHS Authorizing Provider: DELMY CASTRO MD * Telephone Encounter - Deidre PazBREE - 12/25/2024 2:45 PM EDT Images from the original note were not included. Most recent Rheumatology visit: 10/03/2024 (with Delmy Castro) Last Bone Density on file: None on file Rheumatology Care Team: None on file Recent Office Visits - This Specialty 10/03/2024 Chronic tophaceous gout Rheumatology Delmy Castro MD 01/04/2024 Chronic tophaceous gout Rheumatology Delmy Castro MD 06/24/2023 Chronic tophaceous gout Rheumatology Delmy Castro MD Upcoming Rheumatology Appointments - Next 365 Days Visit Type Date Time Department [facility] 01/09/2025 4:00 PM [facility] CBC: Latest Ref Rng & Units 10/10/2024 11/13/2024 CBC WBC 3.70 - 11.00 k/uL 6.64 Hemoglobin 13.0 - 17.0 g/dL 14.9 15.1 14.2 Hematocrit 39.0 - 51.0 % 40.8 Platelet Count 150 - 400 k/uL 318 Abs Neut (ANC) 1.45 - 7.50 k/uL 3.71 Abs Lymph 1.00 - 4.00 k/uL 2.44 Vitamin D: None on file in the last 6 months LFT: None on file in the last 6 months Hepatic Function: Creatinine: Latest Ref Rng & Units 10/02/2024 11/13/2024 Creatinine Creatinine 0.73 - 1.22 mg/dL 1.28 1.29 ESR/CRP: Latest Ref Rng & Units 10/02/2024 11/13/2024 ESR, WSR WSR 0 - 15 mm/hr 2 2 Latest Ref Rng & Units 10/02/2024 11/13/2024 CRP CRP <0.9 mg/dL <0.3 <0.3 Uric Acid: Latest Ref Rng & Units 11/28/2024 12/11/2024 Uric Acid Uric Acid 4.0 - 8.1 mg/dL 0.6 <0.2 Open Standing (Multiple Instance) Lab Orders Remain Interval Expires Ordered Last Rel. URIC ACID [SQURIC] 08/08 Every other week 10/09/25 10/09/24 12/25/24 Auth. provider: Delmy Castro MD Assoc. diagnoses: Chronic tophaceous gout ASPARTATE AMINOTRANSFERASE/SGOT [SQAST] 4/5 Every 3 months 10/09/25 10/09/24 11/13/24 Auth. provider: Delmy Castro MD Assoc. diagnoses: Chronic tophaceous gout ALANINE AMINOTRANSFERASE / SGPT [SQALT] 4/5 Every 3 months 10/09/25 10/09/24 11/13/24 Auth. provider: Delmy Castro MD Assoc. diagnoses: Chronic tophaceous gout ALBUMIN [SQALB] 4/5 Every 3 months 10/09/25 10/09/24 11/13/24 Auth. provider: Delmy Castro MD Assoc. diagnoses: Chronic tophaceous gout COMPLETE BLOOD COUNT AND DIFFERENTIAL [SQCBCDIF] 4/5 Every 3 months 10/09/25 10/09/24 11/13/24 Auth. provider: Delmy Castro MD Assoc. diagnoses: Chronic tophaceous gout C-REACTIVE PROTEIN [SQCRP] 4/5 Every 3 months 10/09/25 10/09/24 11/13/24 Auth. provider: Delmy Castro MD Assoc. diagnoses: Chronic tophaceous gout CREATININE BLD [SQCRET] 4/5 Every 3 months 10/09/25 10/09/24 11/13/24 Auth. provider: Delmy Castro MD Assoc. diagnoses: Chronic tophaceous gout SEDIMENTATION RATE, WESTERGREN [SQWSR] 4/5 Every 3 months 10/09/25 10/09/24 11/13/24 Auth. provider: Delmy Castro MD Assoc. diagnoses: Chronic tophaceous gout Open Future (Single Instance) Lab Orders None documented in this encounter Plan of Treatment DateTypeDepartmentCare Team (Latest Contact Info)Bpfdynlqcva41/11/2025 4:00 PM ESTOffice Visit Rheumatology [address] [place] [address] [place] [address] [place], [place] [phone] FU 3 MON?AT 11:40 , 4 OR 4:30 slots . 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
--- OUTSIDE RECORDS SUMMARY | 2024-12-31 20:45 | XMS_ITS | Encounter Summary ---
Author Organization [facility] Address [address] [place] [address] Care Team Providers Care Business Process Consultant Name Role Phone Malcolm Cid MD Primary Care Provider [phone] Malcolm Cid MD Unavailable Wednesday, Alma AQUINON Unavailable [phone] Jayne Del Valle RN Unavailable [phone] [place] [employer]ON ATTENDANT Unavailable Encounter Details DateTypeDepartmentCare Team (Latest Contact Info)Vgxahcaxlze20/05/2024Clinisync Result Encounter [facility] Unsolicited Provider, Generic External Data Social History Tobacco UseTypesPacks/DayYears UsedDateSmoking Tobacco: Every DaySmokeless Tobacco: CurrentChewAlcohol UseStandard Drinks/WeekCommentsYes6 (1 standard drink = 0.6 oz pure alcohol)2 or 3 drinks in one sitting. Maybe two or three times per [id number] Health LiteracyAnswerDate RecordedHow often do you need [...] times a week10/10/2023How often do you attend evangelical or rastafarian services?More than 4 times per year 10/10/2023o you belong to any clubs or organizations such as evangelical groups, unions, fraOrckestra or athletic groups, or school groups?Yes10/10/2023How often do you attend meetings of the clubs or organizations you belong to?More than 4 times per year10/10/2023re you , , , , never , or living with a partner?Xajxcykrk21/11/2024UDIT-CAnswerDate Recorded Q1: How often do you have [...] and heating?Not very hard10/10/2023HQ-2AnswerDate RecordedPatient Health Questionnaire-2 [id number] fork hospital [place] of Occupational Health - Occupational Stress QuestionnaireAnswerDate [...] steady place to sleep or slept in [facility] (including now)?No 09/14/2022Housing Stability Vital SignAnswerDate RecordedIn the last 12 months, was there a time when you were not able to pay the mortgage or rent on time?Yes 10/10/2023In the past 12 months, how many times have you moved where you were living?t any time in the past 12 months, were you homeless or living in a fpc (including now)?No10/10/2023Sex and Gender InformationValueDate RecordedSex Assigned at UjqbdHxma91/11/2023 2:56 PM EDTLegal EdtYhal7005/13/2022 6:55 PM EDTGender VzydsfmxTfak61/11/2023 2:56 PM EDTSexual OrientationStraight 09/08/2022 2:56 PM EDTdocumented as of this encounter Functional Status * Over the past 2 weeks, how often have you been bothered by any of the following problems?QuestionAnswerDate of AssessmentAuthorLittle interest or pleasure in doing thingsNot at all09/13/2024 7:44 AM Jayne Berrios MA Feeling down, depressed, or hopelessNot at all09/13/2024 7:44 AM Jayne Berrios MAPatient Health Questionnaire-2 [id number] 7:44 AM Jayne Berrios MA documented as of this encounter Plan of Treatment Not on file documented as of this encounter Procedures Procedure NamePriorityDate/TimeAssociated DiagnosisCommentsXR FOOT 3V AP/LAT/OBL BIL01/04/2024 9:48 AM EST documented in this encounter Results * XR FOOT 3V AP/LAT/OBL RAMIRO (01/04/2024 9:48 AM EST)Anatomical RegionLaterality ModalityOtherSpecimen (Source)Anatomical Location / LateralityCollection Method / VolumeCollection TimeReceived Time01/04/2024 9:48 AM EST Narrative 01/04/2024 3:14 PM EST * * *Final Report* * * DATE OF EXAM: Dec ??2023 ??9:48AM ?? VHX ?? [id number] ??- ??XR FOOT 3V AP/LAT/OBL RAMIRO ?? / PROCEDURE REASON: multiple diagnoses ? * * * * Physician Interpretation * * * * EXAMINATION / TECHNIQUE: ??XR FOOT 3V AP/LAT/OBL RAMIRO PATIENT/TECHNOLOGIST PROVIDED HISTORY: ?? Assessment of gout progresssion in joints, patient states pain equal in bilateral knees and feet CLINICAL INFORMATION ( PROVIDED BY ORDERING CLINICIAN) : ??Chronic tophaceous gout Encounter for long-term (current) use of medications COMPARISON: Radiographs 05/04/2017 RESULT: Left foot: Complete loss of the first MTP joint space with prominent bony erosions involving the distal first metatarsal with smaller erosions at the base of the hallux proximal phalanx. ??There has been resultant shortening of the hallux proximal phalanx since 05/04/2017 with hallux valgus. ??No other erosions. ??Moderate osteoarthritis of the third toe PIP joint. ??No acute fracture or dislocation. ??Mild pes planus. Right foot: Mild first MTP and talonavicular osteoarthritis. ??The joint spaces are otherwise grossly maintained. ??No bony erosions. ??No acute fracture or dislocation. ??Mild pes planus. 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 Smoking Pipe Liner: ADELA ?? Transcribe Date/Time: Dec?2023 10:13A Dictated by : UMA ROGERS MD This examination was interpreted and the report reviewed and electronically signed by: CHELSEA REEVES MD on Dec ??2023 ??3:12PM ??EST [id number]^[id number]^SI^ACN Procedure Note Radiology, Radiologist, MD - 01/04/2024 * * *Final Report* * [...] progressed from 05/04/2017 Mild right foot osteoarthritis. Smoking Pipe Liner: ADELA Transcribe Date/Time: Jan 04 2024 10:13A Dictated by : UMA ROGERS MD This examination was interpreted and the report reviewed and electronically signed by: CHELSEA REEVES MD on Jan 04 2024 3:12PM EST [id number]^[id number]^SI^ACN Authorizing ProviderResult TypeResult StatusGeneric External Data Provider CLINISYNC IMAGINGFinal Result documented in this encounter Visit Diagnoses Not on filedocumented in this encounter Care Teams Team MemberRelationshipSpecialtyStart DateEnd Date Malcolm Cid MD [address] [facility] [address] [place] [address] [facility]22 Malcolm Cid MD [address] [facility] [address] [place] [address] PCP - [facility]05/30/22WednesdayAlma LPN [address] [facility] [address] [place] [address] Licensed Practical NurseFamily Medicine/09/22 Jayne Del Valle RN [address] [place], [place] [id number] Licensed Practical NurseFamily Medicine Merry Paz LPN [address] [facility] [address] [place] [address] 05/19/24documented as of this encounter
--- NOTE | 2024-12-31 20:57 | ED.EXTPRO1 ---
HPI - Extremity Problem General Chief complaint: Extremity Problem, Nontraumatic Stated complaint: POSS ARTHRITIS FLARE UP IN R ARM/HAND Time Seen by Provider: 12/31/24 20:50 Source: patient Limitations: no limitations History of Present Illness HPI Narrative: past history of gout and RA. Long history. Presents with acute flare up of his arthritis involving his right hand and wrist. States he has had similar flareups in the past that are responsive to steroids. No fever. no chills or systemic symptoms. Other than the pain of his right wrist and hand he feels ok Related Data Home Medications ?Medication ?Instructions ?Recorded ?Confirmed amlodipine 10 mg tablet 10 mg PO QDAY 08/31/22 12/31/24 clonidine HCl 0.1 mg tablet 0.1 mg PO BID 08/31/22 12/31/24 colchicine 0.6 mg tablet 0.6 mg PO QDAY 08/31/22 12/31/24 gabapentin 300 mg capsule 300 mg PO Q12H 02/15/23 12/31/24 (Neurontin) hydrocodone 5 mg-acetaminophen 325 1 tab PO Q12H 09/05/24 12/31/24 mg tablet febuxostat 40 mg tablet 40 mg PO QDAY 12/31/24 12/31/24 folic acid 1 mg tablet 1 mg PO QDAY 12/31/24 12/31/24 methotrexate sodium 2.5 mg tablet 15 mg PO .q week 12/31/24 12/31/24 pegloticase 8 mg/50 mL intravenous 8 mg IV .q14 days 12/31/24 12/31/24 solution (Krystexxa) prednisone 20 mg tablet 40 mg PO .COMPLEX 12/31/24 12/31/24 Allergies Allergy/AdvReac Type Severity Reaction Status Date / Time No Known Drug Allergies Allergy Verified 12/31/24 20:44 Review of Systems ROS Status of ROS 10 or more systems reviewed and unremarkable except as noted in history and below PFSH PFSH Medical History Hyperglycemia, drug-induced ?R73.9 - Hyperglycemia, unspecified (ICD-10) ?T50.905A - Adverse effect of unspecified drugs, medicaments and biological substances, initial encounter (ICD-10) Intractable pain ?R52 - Pain, unspecified (ICD-10) Polyarthralgia ?M25.50 - Pain in unspecified joint (ICD-10) Rheumatoid arthritis flare ?M06.9 - Rheumatoid arthritis, unspecified (ICD-10) Gout, arthritis ?M10.9 - Gout, unspecified (ICD-10) Acute hypernatremia ?E87.0 - Hyperosmolality and hypernatremia (ICD-10) Altered mental status ?R41.82 - Altered mental status, unspecified (ICD-10) Sepsis ?A41.9 - Sepsis, unspecified organism (ICD-10) Acute kidney injury ?N17.9 - Acute kidney failure, unspecified (ICD-10) MONO (generalized anxiety disorder) ?F41.1 - Generalized anxiety disorder (ICD-10) Rheumatoid arthritis ?M06.9 - Rheumatoid arthritis, unspecified (ICD-10) Benign essential hypertension ?I10 - Essential (primary) hypertension (ICD-10) Gouty arthritis ?M10.9 - Gout, unspecified (ICD-10) Acute postoperative pain of knee ?G89.18 - Other acute postprocedural pain (ICD-10) ?M25.569 - Pain in unspecified knee (ICD-10) Visit for wound check ?Z51.89 - Encounter for other specified aftercare (ICD-10) Septic prepatellar bursitis of right knee ?M71.161 - Other infective bursitis, right knee (ICD-10) Acute viral syndrome ?B34.9 - Viral infection, unspecified (ICD-10) Diarrhea ?R19.7 - Diarrhea, unspecified (ICD-10) Rheumatoid arthritis flare ?M06.9 - Rheumatoid arthritis, unspecified (ICD-10) Polyarthralgia ?M25.50 - Pain in unspecified joint (ICD-10) Rheumatoid arthritis flare ?M06.9 - Rheumatoid arthritis, unspecified (ICD-10) Weakness ?R53.1 - Weakness (ICD-10) Mild shortness of breath ?R06.02 - Shortness of breath (ICD-10) Headache ?R51.9 - Headache, unspecified (ICD-10) Polyarthralgia ?M25.50 - Pain in unspecified joint (ICD-10) Flare of rheumatoid arthritis ?M06.9 - Rheumatoid arthritis, unspecified (ICD-10) Arthralgia ?M25.50 - Pain in unspecified joint (ICD-10) Drug-seeking behavior ?Z76.5 - Malingerer [conscious simulation] (ICD-10) Surgical History Total knee replacement status ?Z96.659 - Presence of unspecified artificial knee joint (ICD-10) H/O shoulder surgery ?Z98.890 - Other specified postprocedural states (ICD-10) Family History (Updated 07/29/24 @ 23:56 by Kyra Vega RN) Father Family history of hypertension Social History (Updated 07/29/24 @ 23:57 by Kyra Vega RN) Within the past year, how often did you have a drink containing alcohol: monthly or less Smoking status: Never smoker Nicotine containing products detail: chew tobacco Non-prescribed substance use: denies use Known occupational exposures/hazards: No Highest level of school completed/degree received: Associate degree: academic program Are you now , , , , never or living with a partner: In a typical week, how many times do you talk on the telephone with family, friends, or neighbors: 3 or more times per week How often do you get together with friends or relatives: 3 or more times per week Little interest or pleasure in doing things: not at all Feeling down, depressed, or hopeless: not at all Feel stressed/tense/nervous/anxious/difficulty sleeping: decline to answer Do you think of yourself as: straight/heterosexual Gender Identity: male Exam Constitutional Vital Signs, click to edit/add: Last Vital Signs Temp 98.8 F 12/31/24 20:44 Pulse 111 H 12/31/24 20:44 Resp 16 12/31/24 20:44 BP 115/82 12/31/24 20:44 Pulse Ox 98 12/31/24 20:44 O2 Del Method Room Air 12/31/24 20:44 HENMT Common normals: normocephalic and head/scalp atraumatic Eye Common normals: PERRL and EOMs intact bilaterally Respiratory Common normals: normal respiratory effort, no retractions, no use of accessory muscles and clear to auscultation bilaterally Cardio Common normals: regular rate, regular rhythm, S1 normal heart sound and S2 normal heart sound Extremity Extremity image (front):  1. swelling and faint erythema right hand and fingers Neuro Common normals: oriented x3, CN's II-XII intact bilaterally and moves all extremities Psych Appearance: grossly normal Course Vital Signs Vital signs: Vital Signs Temperature 98.8 F 12/31/24 20:44 Pulse Rate 111 H 12/31/24 20:44 Respiratory Rate 16 12/31/24 20:44 Blood Pressure 115/82 12/31/24 20:44 Pulse Oximetry 98 12/31/24 20:44 Oxygen Delivery Method Room Air 12/31/24 20:44 Temperature 98.8 F 12/31/24 20:44 Pulse Rate 111 H 12/31/24 20:44 Respiratory Rate 16 12/31/24 20:44 Blood Pressure 115/82 12/31/24 20:44 Pulse Oximetry 98 12/31/24 20:44 Oxygen Delivery Method Room Air 12/31/24 20:44 MDM - Extremity (Nontraumatic) MDM Narrative Medical decision making narrative: patient with history of RA and gout. Presents with acute flare of his arthritis. Started 3 days ago and has progressed. Has swelling and faint erythema of his hand. No fever or chills. He states he usually does well with injection of steroid and something for pain and steroid taper for home. He is afebrile. tachycardia due to the pain. otherwise normal vitals. Injection of solumedrol and Toradol ordered Discharge Plan Discharge Chief Complaint: Extremity Problem, Nontraumatic Clinical Impression: Joint pain, Gout Patient Disposition: Home, Self-Care Prescriptions / Home Meds: No Action gabapentin [Neurontin] 300 mg capsule 300 mg PO Q12H hydrocodone-acetaminophen 5-325 mg tablet 1 tab PO Q12H febuxostat 40 mg tablet 40 mg PO QDAY folic acid 1 mg tablet 1 mg PO QDAY methotrexate sodium 2.5 mg tablet 15 mg PO .q week Krystexxa 8 mg/50 mL solution 8 mg IV .q14 days prednisone 20 mg tablet 40 mg PO .COMPLEX Patient Comments: Start 01/01/2025 Rx Instructions: 40 mg orally 5 days then 20mg qd x 3 days then 10mg qd x 4 days; days 11-21 of therapy colchicine 0.6 mg tablet 0.6 mg PO QDAY clonidine HCl 0.1 mg tablet 0.1 mg PO BID amlodipine 10 mg tablet 10 mg PO QDAY Print Language: Thai Instructions: Gout (ED) Additional Instructions: follow up with your doctor in the next couple of days for recheck Referrals: LEYDI ACEVES [Primary Care Provider, Family Practice] - 1 week Discharge Date/Time: 12/31/24 22:14
[2024-12-31] MEDS: METHYLPREDNISOLONE SOD SUCC PF 125 MG/2 ML VIAL IM (21:22)
[2024-12-31] MEDS: KETOROLAC TROMETHAMINE 60 MG/2 ML VIAL IM (21:22)
[2024-12-31] MEDS: HYDROCODONE/ACET 5-325 MG TABLET 2 TAB PO (22:07)
== END 2024-12-31 22:14 | disposition home or self-care (01) ==
PROVIDERS: Emergency Provider Internal Medicine; PCP Family Medicine
DX: M10.9 Gout, unspecified (principal); M25.541 Pain in joints of right hand; M25.531 Pain in right wrist; F17.220 Nicotine dependence, chewing tobacco, uncomplicated; M06.9 Rheumatoid arthritis, unspecified
CPT/HCPCS: 96372; 99284; J1885; J2919

== ENCOUNTER 2025-02-17 06:34 | Emergency (ER) | payer OTHER, SELFPAY ==
--- OUTSIDE RECORDS SUMMARY | 2025-02-05 10:30 | XMS_ITS | Encounter Summary ---
Author Organization [facility] Address [address] [place] [address] Care Team Providers Care Testing Manager Name Role Phone Malcolm Cid MD Primary Care Provider [phone] Source Comments In the event this information is protected by the Federal Confidentiality of Alcohol and Drug AbusePatient Records regulations: The Federal rules restrict any use of the information to criminally investigate or prosecute any alcohol or drug abuse patient.[facility] Reason for Visit * [place] Prior Authorization (Routine) - AuthorizedSpecialtyDiagnoses / ProceduresReferred By ContactReferred To Contact Diagnoses Idiopathic chronic gout of multiple sites with tophus Procedures [place] [address] [place] [address] Phone: tel: fax: Hematology [address] [place] [address] Phone: tel: Referral IDStatusReasonStart DateExpiration DateVisits RequestedVisits [id number] Encounter Details DateTypeDepartmentCare Team (Latest Contact Info)Euzxcrnoinf76/08/2025 10:30 AM [facility] Hematology/Oncology [address] [place] [address] [place] [address] 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 Last address used for rfvdwuyytkw[address] [facility]08/14/2022Sex and Gender InformationValueDate Recorded Sex Assigned at OyguaSzda77/10/2020 12:50 PM EDTLegal KzyOmle73/09/2015 3:20 PM ESTGender RrkkyqpyFzha93/10/2020 12:50 PM EDTSexual OrientationStraight 11/09/2019 12:50 PM EDTdocumented as of this encounter Last Filed Vital Signs Vital SignReadingTime TakenCommentsBlood Txthrsxg28/6302/05/2025 10:45 AM EST Yenta445302/05/2025 10:45 AM ESWSqhmdsjaevk48.5 ??C (97.7 ??F)02/05/2025 10:45 AM ESTRespiratory Tpmd185104/08/2024 10:45 AM ESTOxygen Kpnvlutzoi27%02/05/2025 10:45 AM ESTInhaled Oxygen Concentration--Weight--Height--Body Mass Index--documented in this encounter Functional Status * Are you deaf or do you have serious difficulty hearing?AnswerDate of OjdhdvguogQllcvsWi64/26/2018 6:15 PM Domi De León RN * Are you blind or do you have serious difficulty seeing, even when wearing glasses?AnswerDate of FsudqjziqgYniuujXx47/26/2018 6:15 PM Domi De León RN * Do you have serious difficulty walking or climbing stairs?AnswerDate of IhcvydruxuFfsokxLe07/26/2018 6:15 PM Domi De León RN * Do you have difficulty dressing or bathing?AnswerDate of AssessmentAuthorNo 04/26/2017 6:15 PM Domi De León RN * Because of a physical, mental, or emotional condition, do you have difficulty doing errands alone such as visiting a doctor's office or shopping?AnswerDate of AgbquuzqyrJzyhvvMt70/26/2018 6:15 PM Domi De León RN documented as of this encounter Mental Status * Because of a physical, mental, or emotional condition, do you have serious difficulty concentrating, remembering, or making decisions?AnswerEntry Date PqebbtKd35/26/2018 6:15 PM Domi De León RN documented in this encounter Plan of Treatment DateTypeDepartmentCare Team (Latest Contact Info)Vuwgkcaijuy96/23/2025 10:30 AM [facility] Hematology/Oncology [address] [place] [address] [place] [address] HOKSJRTOW45/07/2025 10:30 AM [facility] Hematology/Oncology [address] [place] [address] [place] [address] PZHNAINMY08/ 10:30 AM [facility] Hematology/Oncology [address] [place] [address] [place] [address] IRLLXHXPB67/ 11:20 AM EDTOffice Visit Rheumatology [address] [place], [place] [id number] [place] [address] [place] [address] 6 month follow up, ok to use slot per providerdocumented as of this encounter Procedures Procedure NamePriorityDate/TimeAssociated DiagnosisCommentsURIC ACID BLOOD Pcbtfza7802/05/2025 10:51 AM EST Chronic tophaceous gout SEDIMENTATION YNXPHbudqwd94/08/2025 10:51 AM EST Chronic tophaceous gout CREATININE YXKVjatpwc21/08/2025 10:51 AM EST Chronic tophaceous gout CBC + YLLRRemmmfi90/08/2025 10:51 AM EST Chronic tophaceous gout C-REACTIVE PROTEIN (CRP)Ztxissz3402/05/2025 10:51 AM EST Chronic tophaceous gout ALBUMIN TQORgakfou62/08/2025 10:51 AM EST Chronic tophaceous gout AST/SGOT CRBKnwmbda12/08/2025 10:51 AM EST Chronic tophaceous gout ALT/ZVCIYlhoidv87/08/2025 10:51 AM EST Chronic tophaceous gout documented in this encounter Results * (ABNORMAL) SEDIMENTATION RATE, WESTERGREN (02/05/2025 10:51 AM EST)Component ValueRef RangeTest MethodAnalysis TimePerformed AtPathologist SignatureSed Rate, Pzjwgdhfcd41(H)0 - 15 mm/hr02/05/2025 4:25 PM ESTST[facility] LABSpecimen (Source)Anatomical Location / LateralityCollection Method / Volume Collection TimeReceived TimeBloodBLOOD SPECIMEN / UnknownVenipuncture / Rmckjzj0102/05/2025 10:51 AM EST02/05/2025 10:52 AM EST Narrative Authorizing ProviderResult TypeResult StatusDelmy Castro MDLABORATORYFinal ResultPerforming OrganizationAddressCity/State/ZIP CodePhone Number [facility] [address] [place] [address] * CREATININE BLD (02/05/2025 10:51 AM EST)ComponentValueRef RangeTest Method Analysis TimePerformed AtPathologist SignatureCreatinine1.030.73 - 1.22 mg/dL 02/05/2025 11:33 AM [facility] LABEstimated Glomerular Filtration Rate98>=60 mL/min/1.73m 02/05/2025 11:33 AM [facility] LABComment:Estimated Glomerular Filtration Rate (eGFR) [...] VolumeCollection TimeReceived TimeBloodBLOOD SPECIMEN / UnknownVenipuncture / Buqcfrv1002/05/2025 10:51 AM EST02/05/2025 10:52 AM EST Narrative Authorizing ProviderResult TypeResult StatusDelmy Castro MDLABORATORYFinal ResultPerforming OrganizationAddressCity/State/ZIP CodePhone Number [facility] [address] [place] [address] * C-REACTIVE PROTEIN (02/05/2025 10:51 AM EST)ComponentValueRef RangeTest Method Analysis TimePerformed AtPathologist SignatureCRP<0.3<0.9 mg/dL02/05/2025 7:02 PM [facility] LABSpecimen (Source)Anatomical Location / LateralityCollection Method / VolumeCollection TimeReceived TimeBloodBLOOD SPECIMEN / UnknownVenipuncture / Fbufdov5002/05/2025 10:51 AM EST02/05/2025 10:52 AM EST Narrative Authorizing ProviderResult TypeResult StatusDelmy Castro MDLABORATORYFinal ResultPerforming OrganizationAddressCity/State/ZIP CodePhone Number [facility] [address] [place] [address], * (ABNORMAL) COMPLETE BLOOD COUNT AND DIFFERENTIAL (02/05/2025 10:51 AM EST) ComponentValueRef RangeTest MethodAnalysis TimePerformed AtPathologist SignatureWBC5.963.70 - 11.00 k/uL02/05/2025 10:58 AM ESTNORTHCVETERANS A[facility] LABRBC4.07(L)4.20 - 6.00 m/uL02/05/2025 10:58 AM [facility] LQCOatsjwtzvr05.5(L)13.0 - 17.0 g/dL02/05/2025 10:58 AM [facility] BJBVvwkozokro71.4(L)39.0 - 51.0 % 02/05/2025 10:58 AM [facility] SJMJTQ58.980.0 - 100.0 fL02/05/2025 10:58 AM [facility] LSVODL76.7 26.0 - 34.0 pg02/05/2025 10:58 AM [facility] LABMCHC 33.430.5 - 36.0 g/dL02/05/2025 10:58 AM [facility] LABRDW-CV12.711.5 - 15.0 %02/05/2025 10:58 AM [facility] LABPlatelet Fckeq348962 - 400 k/uL02/05/2025 10:58 AM [facility] YVIZGT60.59.0 - 12.7 fL02/05/2025 10:58 AM [facility] LABNeutrophils %67.2%02/05/2025 10:58 AM [facility] LABAbs Neut4.001.45 - 7.50 k/uL02/05/2025 10:58 AM [facility] LABLymphocytes %24.5%02/05/2025 10:58 AM [facility] LABAbs Lymph1.461.00 - 4.00 k/uL 02/05/2025 10:58 AM [facility] LABMonocytes %6.9% 02/05/2025 10:58 AM [facility] LABAbs Mono0.41<0.87 k/uL02/05/2025 10:58 AM [facility] LABEosinophils % 0.8%02/05/2025 10:58 AM [facility] LABAbs Eosin0.05 <0.46 k/uL02/05/2025 10:58 AM [facility] Basophils %0.3%02/05/2025 10:58 AM [facility] LABAbs Baso<0.03<0.11 k/uL02/05/2025 10:58 AM [facility] LABImmature Granulocytes %0.3%02/05/2025 10:58 AM [facility] LABAbs Immature Gran<0.03<0.10 k/uL02/05/2025 10:58 AM EST [facility] LABNRBC0.0/100 WBC02/05/2025 10:58 AM EST [facility] LABAbsolute nRBC<0.01<0.01 k/uL02/05/2025 10:58 AM [facility] LABDiff YzmnCmxa26/08/2025 10:58 AM [facility] LABSpecimen (Source)Anatomical Location / LateralityCollection Method / VolumeCollection TimeReceived Time BloodBLOOD SPECIMEN / UnknownVenipuncture / Tzxuuwy2202/05/2025 10:51 AM EST 02/05/2025 10:52 AM EST Narrative Authorizing ProviderResult TypeResult StatusJudevelina Castro MDLABORATORYFinal ResultPerforming OrganizationAddressCity/State/ZIP CodePhone Number [facility] [address] [place] [address] * ALBUMIN (02/05/2025 10:51 AM EST)ComponentValueRef RangeTest MethodAnalysis TimePerformed AtPathologist SignatureAlbumin4.13.9 - 4.9 g/dL02/05/2025 11:19 AM [facility] LABSpecimen (Source)Anatomical Location / LateralityCollection Method / VolumeCollection TimeReceived Time BloodBLOOD SPECIMEN / UnknownVenipuncture / Sbvwomv3902/05/2025 10:51 AM EST 02/05/2025 10:52 AM EST Narrative Authorizing ProviderResult TypeResult StatusJudith D Manzon MDLABORATORYFinal ResultPerforming OrganizationAddressCity/State/ZIP CodePhone Number [facility] [address] [place] [address] * ALANINE AMINOTRANSFERASE / SGPT (02/05/2025 10:51 AM EST)ComponentValueRef RangeTest MethodAnalysis TimePerformed AtPathologist OzubztlabZHB4597 - 54 U/L 02/05/2025 11:19 AM ESTNORTMCLAREN BAY SPECIAL [facility] LABSpecimen (Source) Anatomical Location / LateralityCollection Method / VolumeCollection Time Received TimeBloodBLOOD SPECIMEN / UnknownVenipuncture / Slqqhun0902/05/2025 10:51 AM EST02/05/2025 10:52 AM EST Narrative Authorizing ProviderResult TypeResult StatusDelmy Castro MDLABORATORYFinal ResultPerforming OrganizationAddressCity/State/ZIP CodePhone Number [facility] [address] [place] [phone] * (ABNORMAL) ASPARTATE AMINOTRANSFERASE/SGOT (02/05/2025 10:51 AM EST)Component ValueRef RangeTest MethodAnalysis TimePerformed AtPathologist YmmamfbjgVBZ69 (L)14 - 40 U/L104/08/2024 11:19 AM [facility] Specimen (Source)Anatomical Location / LateralityCollection Method / Volume Collection TimeReceived TimeBloodBLOOD SPECIMEN / UnknownVenipuncture / Htqudgj0102/05/2025 10:51 AM EST02/05/2025 10:52 AM EST Narrative Authorizing ProviderResult TypeResult StatusDelmy Castro MDLABORATORYFinal ResultPerforming OrganizationAddressty/State/ZIP CodePhone Number [facility] [address] [place] [phone] * (ABNORMAL) URIC ACID (02/05/2025 10:51 AM EST)ComponentValueRef RangeTest MethodAnalysis TimePerformed AtPathologist SignatureUric Acid<0.2(L)4.0 - 8.1 mg/dL02/05/2025 11:19 AM [facility] LABSpecimen (Source)Anatomical Location / LateralityCollection Method / VolumeCollection TimeReceived TimeBloodBLOOD SPECIMEN / UnknownVenipuncture / Ylojiwc8302/05/2025 10:51 AM EST02/05/2025 10:52 AM EST Narrative Authorizing ProviderResult TypeResult StatusDelmy Castro MDLABORATORYFinal ResultPerforming OrganizationAddressCity/State/ZIP CodePhone Number [facility] [address] [place] [phone] documented in this encounter Visit Diagnoses Diagnosis Idiopathic chronic gout of multiple sites with tophus- Primary 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) documented in this encounter Administered Medications Medication OrderMAR ActionAction DateDoseRateSite diphenhydrAMINE 50 mg injection (BENADRYL) 50 mg, INTRAVENOUS, ONCE, 1 dose, On Wed02/05/25 at 1130 Indications:Idiopathic chronic gout of multiple sites with cvzqdqVhdhw23/08/2025 11:39 AM EST50 mg methylPREDNISolone sod succinate(PF) 125 mg injection (SOLU-Medrol) 125 mg, INTRAVENOUS, ONCE, 1 dose, On Wed02/05/25 at 1130 Indications:Idiopathic chronic gout of multiple sites with zwdtunHjtlh94/08/2025 11:37 AM SXB262 mg pegloticase 8 mg in NaCl 0.9% 250 mL (KRYSTEXXA) solution 8 mg, INTRAVENOUS, at 125 mL/hr, Administer over 2 Hours, ONCE, 1 dose, On Wed02/05/25 at 1130, Administer in a healthcare setting by healthcare providers prepared to manage anaphylaxis. Protect FromLight. 4 hour Expiration: 02/05/2025 1525 RT Indications:Idiopathic chronic gout of multiple sites with tophusNew Bag/Syringe/Rqswwh4902/05/2025 11:53 AM EST8 mg125 mL/hrdocumented in this encounter Care Teams Team MemberRelationshipSpecialtyStart DateEnd Date Malcolm Cid MD PCP - GeneralFamily Spzvnzuu11/9/15documented as of this encounter
--- OUTSIDE RECORDS SUMMARY | 2025-02-06 08:30 | XMS_ITS | Encounter Summary ---
Author Organization [facility] Address [address] [place] [address] Care Team Providers Care Survey Associate Name Role Phone Malcolm Cid MD Primary Care Provider [phone] Malcolm Cid MD Unavailable Merry Paz LPN Unavailable Encounter Details DateTypeDepartmentCare Team (Latest Contact Info)Nzapxrrtuhs45/09/2025 8:30 AM ESTOffice Visit [facility] [address] [place] [id number] Nancy Martin, CUSTOMER SERVICE AGENT [address] [place] [address] Rheumatoid arthritis involving multiple sites with positive rheumatoid factor (HCC) (Primary Dx); Major depressive disorder, single episode, moderate (HCC); Chronic obstructive pulmonary disease, unspecified (HCC) Social History Tobacco UseTypesPacks/DayYears UsedDateSmoking Tobacco: NeverSmokeless Tobacco: CurrentChew Tobacco Cessation:Counseling Given: Yes Alcohol UseStandard Drinks/WeekCommentsYes6 (1 standard drink = 0.6 oz pure alcohol)2 or 3 drinks in one sitting. Maybe two or three times per pC1357 Health LiteracyAnswerDate RecordedHow often do you need [...] times a week10/10/2023How often do you attend buddhism or episcopalian services?More than 4 times per year4Do you belong to any clubs or organizations such as buddhism groups, unions, fraternal or athletic groups, or school groups?Yes10/10/2023How often do you attend meetings of the clubs or organizations you belong to?More than 4 times per year10/10/2023 Are you , , , , never , or living with a partner?Kszjztkyn33/11/2024UDIT-CAnswerDate RecordedQ1: How often do you have a [...] heating?Not very hard10/10/2023HQ-2AnswerDate RecordedPatient Health Questionnaire-2 Score0 02/06/2025[facility] - Occupational Stress QuestionnaireAnswerDate [...] steady place to sleep or slept in [facility] (including now)?No09/14/2022Housing Stability Vital SignAnswerDate RecordedIn the last 12 months, was there a time when you were not able to pay the mortgage or rent on time?Yes10/10/2023In the past 12 months, how many times have you moved where you were living?t any time in the past 12 months, were you homeless or living in a half-way (including now)?No 10/10/2023Sex and Gender InformationValueDate RecordedSex Assigned at BirthMale 09/08/2022 2:56 PM EDTLegal PoeKfuh9105/13/2022 6:55 PM EDTGender IdentityMale 09/08/2022 2:56 PM EDTSexual AmzbzpwdnhoBlxlylbw56/11/2023 2:56 PM EDTdocumented as of this encounter Last Filed Vital Signs Vital SignReadingTime TakenCommentsBlood Kricppcj120/80104/09/2024 8:37 AM EST Iqjft147502/06/2025 8:37 AM ESTTemperature--Respiratory Xlnp280404/09/2024 8:37 AM ESTOxygen Ziuczugwuu35%02/06/2025 8:37 AM ESTInhaled Oxygen Concentration-- Whjeku090 kg (242 lb)02/06/2025 8:37 AM TLOFmlvsa051.5 cm (6' 3 )02/06/2025 8:37 AM ESTBody Mass Index30.25104/09/2024 8:37 AM ESTdocumented in this encounter Functional Status * Over the past 2 weeks, how often have you been bothered by any of the following problems?QuestionAnswerDate of AssessmentAuthorLittle interest or pleasure in doing thingsNot at all02/06/2025 8:30 AM Godfrey MELLOeling down, depressed, or hopelessNot at all02/06/2025 8:30 AM KAT MELLO Patient Health Questionnaire-2 Ucrcg85704/09/2024 8:30 AM KAT MELLO documented as of this encounter Progress Notes * Nancy Martin, TREVA - 02/06/2025 8:30 AM EST Images from the original note were not included. Subjective Patient ID: Nick Wray is a 34 y.o. male who presents for No chief complaint on file.. Nick presents today for medication follow up for Rheumatoid Arthritis. Arthritis Presents for follow-up visit. Nick complains of stiffness. Affected locations include the right MCP, right PIP, right DIP and right wrist. Nick's pain is at a severity of 0/10. (Flair up in hand in 3weeks. Took some steroids and it is better) Compliance with total regimen is 76-100%. Compliance with medications is 76-100%. Over the past 2 weeks, how often have you been bothered by any of the following problems? Little interest or pleasure in doing things: Not at all Feeling down, depressed, or hopeless: Not at all Patient Health Questionnaire-2 Score: 0 Current Outpatient Medications on File Prior to Visit Medication Sig Dispense Refill amLODIPine (Norvasc) 10 MG tablet TAKE 1 TABLET BY MOUTH EVERY DAY FOR 100 DAYS 100 tablet 3 carvedilol (Coreg) 6.25 MG tablet TAKE 1 TABLET BY MOUTH TWICE A DAY WITH FOOD (Patient not taking:Reported on 12/20/2024) 180 tablet 3 cloNIDine (Catapres) 0.1 MG tablet TAKE 1 TABLET BY MOUTH TWICE A DAY 180 tablet 3 colchicine 0.6 MG tablet TAKE 1 TABLET BY MOUTH EVERY OTHER DAY 15 tablet 11 febuxostat (Uloric) 40 MG tablet Take 40 mg by mouth Daily folic acid (Folvite) 1 MG tablet Take 1,000 mcg by mouth Daily gabapentin (Neurontin) 300 MG capsule TAKE 1 CAPSULE (300 MG) BY MOUTH IN THE MORNING AND AT BEDTIME 60 capsule 6 HYDROcodone-acetaminophen ([place]) 5-325 MG tablet Take 1 tablet by mouth every 12 (twelve) hours ifneeded for severe pain 60 tablet 0 meloxicam (Mobic) 15 MG tablet (Patient not taking: Reported on 12/20/2024) methotrexate 2.5 MG tablet Take 2.5 mg by mouth 1 (one) time per week. Pegloticase (Krystexxa) 8 MG/50ML solution Infuse 8 mg into a venous catheter every 14 (fourteen) days predniSONE (Deltasone) 20 MG tablet predniSONE (Deltasone) 5 MG tablet Take 5 mg by mouth Daily PRN (Patient not taking: Reported on 12/20/2024) predniSONE (Deltasone) 50 MG tablet No current facility-administered medications on file prior to visit. I have reviewed and reconciled the history and medication list with the patient today. No Known Allergies Social History Tobacco Use Smoking status: Every Day Current packs/day: 1.50 Average packs/day: 1.5 packs/day for 16.9 years (25.4 ttl pk-yrs) Types: Cigarettes Start date: 02/26/2008 Smokeless tobacco: Current Types: Chew Vaping Use Vaping status: Never Used Substance Use Topics Alcohol use: Yes Alcohol/week: [...] AND DRAINAGE OF WOUND 02/15/[address] Cofmfan SHOULDER ARTHROSCOPY Right WISDOM TOOTH EXTRACTION 2009 Visit Vitals Smoking Status Every Day Review of Systems Constitutional: Negative. HENT: Negative. Eyes: Negative. Respiratory: Negative. Gastrointestinal: Negative. Genitourinary: Negative. Musculoskeletal: Positive for arthritis and stiffness. Skin: Negative. Neurological: Negative. Psychiatric/Behavioral: Negative. Objective Physical Exam Vitals reviewed. Constitutional: Appearance: Normal appearance. HENT: Head: Normocephalic. Nose: Nose normal. Mouth/Throat: Mouth: Mucous membranes are moist. Pharynx: Oropharynx is clear. Cardiovascular: Rate and Rhythm: Normal rate. Pulmonary: Effort: Pulmonary effort is normal. Musculoskeletal: General: Deformity present. Skin: General: Skin is warm and dry. Neurological: General: No focal deficit present. Mental Status: Nick is alert and oriented to person, place, and time. Psychiatric: Mood and Affect: Mood normal. Behavior: Behavior normal. Thought Content: Thought content normal. Judgment: Judgment normal. Assessment/Plan Diagnoses and all orders for this visit: Rheumatoid arthritis involving multiple sites with positive rheumatoid factor (HCC) This is a chronic medical condition that is stable since last assessment. No changes in treatment are suggested at this time. Major depressive disorder, single episode, moderate (HCC) Medication as directed. Verbalizes understanding of the need to be seen in the ER for suicidal/homicidal ideation, excessive stress, elevated blood pressure or palpitations. Pt offers understanding of treatment plan. I discussed the side effects of the medications described and to seek medical careif they arise. Discussed stress mgmt strategies, social support and importance of healthy diet, exercise and regular sleep habits. Advised on relaxation methods to decrease anxiety and depression. Chronic obstructive pulmonary disease, unspecified (HCC) This is a chronic medical condition that is stable since last assessment. No changes in treatment are suggested at this time. Other orders - Follow Up In Family Medicine; Future No follow-ups on file. documented in this encounter Plan of Treatment Not on file documented as of this encounter Visit Diagnoses Diagnosis Rheumatoid arthritis involving multiple sites with positive rheumatoid factor (HCC)- Primary Major depressive disorder, single episode, moderate (HCC) Major depressive disorder, single episode, moderate Chronic obstructive pulmonary disease, unspecified (HCC) documented in this encounter Care Teams Team MemberRelationshipSpecialtyStart DateEnd Date Malcolm Cid MD [address] [address] [facility] - [facility] Malcolm Cid MD [address] [address] PCP - [facility]05/30/22 Merry Paz LPN [address] [address] 05/19/24documented as of this encounter
[2025-02-17 06:36] VITALS: BP 151/99; PULSE 114; TEMP 37.2; O2SAT 95; BMI 28.1
--- NOTE | 2025-02-17 07:17 | ED.GENADUL1 ---
HPI HPI - General Adult General Chief complaint: Abdominal Pain Stated complaint: abd pain Time Seen by Provider: 02/17/25 07:07 Source: patient Mode of arrival: walk-in History of Present Illness HPI narrative: 34-year-old male presents for abdominal pain and cramps and vomiting. 5 nights ago he ate some undercooked chicken and that night he started vomiting. The next day he had diarrhea and he states he had a lot of gas since then. The diarrhea has stopped but he has not been able to eat for multiple days and the abdominal cramps continue. No hematemesis or blood in his stool. Related Data Home Medications ?Medication ?Instructions ?Recorded ?Confirmed amlodipine 10 mg tablet 10 mg PO QDAY 08/31/22 12/31/24 clonidine HCl 0.1 mg tablet 0.1 mg PO BID 08/31/22 12/31/24 colchicine 0.6 mg tablet 0.6 mg PO QDAY 08/31/22 12/31/24 gabapentin 300 mg capsule 300 mg PO Q12H 02/15/23 12/31/24 (Neurontin) hydrocodone 5 mg-acetaminophen 325 1 tab PO Q12H 09/05/24 12/31/24 mg tablet febuxostat 40 mg tablet 40 mg PO QDAY 12/31/24 12/31/24 folic acid 1 mg tablet 1 mg PO QDAY 12/31/24 12/31/24 methotrexate sodium 2.5 mg tablet 15 mg PO .q week 12/31/24 12/31/24 pegloticase 8 mg/50 mL intravenous 8 mg IV .q14 days 12/31/24 12/31/24 solution (Krystexxa) prednisone 20 mg tablet 40 mg PO .COMPLEX 12/31/24 12/31/24 Previous Rx's ?Medication ?Instructions ?Recorded dicyclomine 10 mg capsule 10 mg PO QID PRN abdominal pain 02/17/25 #20 caps ondansetron 4 mg disintegrating 4 mg PO Q6H PRN nausea and 02/17/25 tablet vomiting #20 tabs Allergies Allergy/AdvReac Type Severity Reaction Status Date / Time No Known Drug Allergies Allergy Verified 02/17/25 06:40 Opioid HPI Opioid Management Most Recent Opioid Data: Last Pain Scale 8 12/31/24, 22:07 Last ORT Total Score 4 07/29/24, 23:43 Last ORT Risk Category Moderate Risk 07/29/24, 23:43 Ur Phencyclidine Scrn, (NEGATIVE) Negative 06/02/23, 22:15 Review of Systems ROS Narrative A ten point review of systems is negative except as noted above. PFSH PFSH Medical History Hyperglycemia, drug-induced ?R73.9 - Hyperglycemia, unspecified (ICD-10) ?T50.905A - Adverse effect of unspecified drugs, medicaments and biological substances, initial encounter (ICD-10) Intractable pain ?R52 - Pain, unspecified (ICD-10) Polyarthralgia ?M25.50 - Pain in unspecified joint (ICD-10) Rheumatoid arthritis flare ?M06.9 - Rheumatoid arthritis, unspecified (ICD-10) Gout, arthritis ?M10.9 - Gout, unspecified (ICD-10) Acute hypernatremia ?E87.0 - Hyperosmolality and hypernatremia (ICD-10) Altered mental status ?R41.82 - Altered mental status, unspecified (ICD-10) Sepsis ?A41.9 - Sepsis, unspecified organism (ICD-10) Acute kidney injury ?N17.9 - Acute kidney failure, unspecified (ICD-10) MONO (generalized anxiety disorder) ?F41.1 - Generalized anxiety disorder (ICD-10) Rheumatoid arthritis ?M06.9 - Rheumatoid arthritis, unspecified (ICD-10) Benign essential hypertension ?I10 - Essential (primary) hypertension (ICD-10) Gouty arthritis ?M10.9 - Gout, unspecified (ICD-10) Acute postoperative pain of knee ?G89.18 - Other acute postprocedural pain (ICD-10) ?M25.569 - Pain in unspecified knee (ICD-10) Visit for wound check ?Z51.89 - Encounter for other specified aftercare (ICD-10) Septic prepatellar bursitis of right knee ?M71.161 - Other infective bursitis, right knee (ICD-10) Acute viral syndrome ?B34.9 - Viral infection, unspecified (ICD-10) Diarrhea ?R19.7 - Diarrhea, unspecified (ICD-10) Rheumatoid arthritis flare ?M06.9 - Rheumatoid arthritis, unspecified (ICD-10) Polyarthralgia ?M25.50 - Pain in unspecified joint (ICD-10) Rheumatoid arthritis flare ?M06.9 - Rheumatoid arthritis, unspecified (ICD-10) Weakness ?R53.1 - Weakness (ICD-10) Mild shortness of breath ?R06.02 - Shortness of breath (ICD-10) Headache ?R51.9 - Headache, unspecified (ICD-10) Polyarthralgia ?M25.50 - Pain in unspecified joint (ICD-10) Flare of rheumatoid arthritis ?M06.9 - Rheumatoid arthritis, unspecified (ICD-10) Arthralgia ?M25.50 - Pain in unspecified joint (ICD-10) Drug-seeking behavior ?Z76.5 - Malingerer [conscious simulation] (ICD-10) Surgical History Total knee replacement status ?Z96.659 - Presence of unspecified artificial knee joint (ICD-10) H/O shoulder surgery ?Z98.890 - Other specified postprocedural states (ICD-10) Family History (Updated 07/29/24 @ 23:56 by Kyra Vega RN) Father Family history of hypertension Social History (Updated 07/29/24 @ 23:57 by Kyra Vega RN) Within the past year, how often did you have a drink containing alcohol: monthly or less Smoking status: Never smoker Nicotine containing products detail: chew tobacco Non-prescribed substance use: denies use Known occupational exposures/hazards: No Highest level of school completed/degree received: Associate degree: academic program Are you now , , , , never or living with a partner: In a typical week, how many times do you talk on the telephone with family, friends, or neighbors: 3 or more times per week How often do you get together with friends or relatives: 3 or more times per week Little interest or pleasure in doing things: not at all Feeling down, depressed, or hopeless: not at all Feel stressed/tense/nervous/anxious/difficulty sleeping: decline to answer Do you think of yourself as: straight/heterosexual Gender Identity: male Exam Narrative Exam Narrative: Nurses note and vital signs reviewed General:The patient appears in no acute distress. Skin:Warm, dry, no pallor noted.There is no rash noted. Head:Normocephalic, atraumatic Eye: Normal conjunctiva, no drainage Ears, Nose, Mouth, and Throat: oral mucosa is moist. Nares patent. Cardiovascular:Regular Rate and Rhythm Respiratory:Patient is in no distress, no accessory muscle use, lungs are clear to auscultation, no wheezing, rales or rhonchi Back:non-tender GI: Soft and nondistended. Minimal tenderness present without mass. Musculoskeletal: The patient has no evidence of calf tenderness, no pitting edema, symmetrical pulses noted bilaterally Neurological:A&O, normal speech Psychiatric:Cooperative Constitutional Vital Signs, click to edit/add: Last Vital Signs Temp 99.0 F 02/17/25 06:36 Pulse 114 H 02/17/25 06:36 Resp 20 02/17/25 06:36 BP 151/99 H 02/17/25 06:36 Pulse Ox 95 02/17/25 06:36 O2 Del Method Room Air 02/17/25 06:36 Course Vital Signs Vital signs: Vital Signs Temperature 99.0 F 02/17/25 06:36 Pulse Rate 114 H 02/17/25 06:36 Respiratory Rate 20 02/17/25 06:36 Blood Pressure 151/99 H 02/17/25 06:36 Pulse Oximetry 95 02/17/25 06:36 Oxygen Delivery Method Room Air 02/17/25 06:36 Temperature 99.0 F 02/17/25 06:36 Pulse Rate 114 H 02/17/25 06:36 Respiratory Rate 02/17/25 06:36 Blood Pressure 151/99 H 02/17/25 06:36 Pulse Oximetry 95 02/17/25 06:36 Oxygen Delivery Method Room Air 02/17/25 06:36 Medical Decision Making MDM Narrative Medical decision making narrative: Blood work is essentially normal. He was given IV fluids and Zofran. The nausea was improved but he was still having abdominal cramps. He was offered a CAT scan but does not want to do that at this point and states that he feels worse later in the day he will come back. He was prescribed Bentyl and Zofran and given a work note. Treatment diagnosis and follow-up were discussed with the patient. Differential Diagnosis Differential Diagnosis: Food poisoning, gastroenteritis, dehydration Lab Data Lab results reviewed: Yes I reviewed the patient's lab results Labs: Lab Results 02/17/25 Range/Units 07:24 WBC 13.0 H (4.0-11.0) 10^3/uL RBC 4.56 L (4.70-6.10) 10^6/uL Hgb 14.1 (14.0-18.0) g/dL Hct 41.0 L (42.0-54.0) % MCV 89.9 (80.0-94.0) fL MCH 30.9 (25.9-34.0) pg MCHC 34.4 (29.9-35.2) g/dL RDW 12.7 (11.0-15.0) % Plt Count 297 (150-450) 10^3/uL MPV 10.2 (9.5-13.5) fL Neut % (Auto) 76.6 H (43.0-75.0) % Lymph % (Auto) 16.7 L (20.5-60.0) % Bucks % (Auto) 6.2 (1.7-12.0) % Eos % (Auto) 0.1 L (0.9-7.0) % Baso % (Auto) 0.2 (0.2-2.0) % Neut # (Auto) 9.9 H (1.4-6.5) 10^3/uL Lymph # (Auto) 2.2 (1.2-3.8) 10^3/uL Bucks # (Auto) 0.8 (0.3-0.8) 10^3/uL Eos # (Auto) 0.0 (0.0-0.7) 10^3/uL Baso # (Auto) 0.0 (0.0-0.1) 10^3/uL Abs Immat Gran (auto) 0.03 (0.00-0.03) 10^3/uL Imm/Tot Granulo (auto) 0.2 (0.0-0.5) % Sodium 142 (136-145) mmol/L Potassium 4.1 (3.5-5.1) mmol/L Chloride 102 (98-107) mmol/L Carbon Dioxide 25.1 (21.0-32.0) mmol/L Anion Gap 19.0 BUN 13.0 (7.0-18.0) mg/dL Creatinine 1.31 H (0.70-1.30) mg/dL Est GFR ( Amer) >60 (>=60 mL/min/1.73m^2) Est GFR (Non-Af Amer) >60 (>=60 mL/min/1.73m^2) BUN/Creatinine Ratio 9.9 Glucose 122 H (74-106) mg/dL Calcium 9.6 (8.5-10.1) mg/dL Total Bilirubin 1.2 H (0.2-1.0) mg/dL Direct Bilirubin 0.2 (0.0-0.2) mg/dL AST 25 (15-37) U/L ALT 36 (16-63) U/L Alkaline Phosphatase 85 (46-116) U/L Total Protein 8.1 (6.4-8.2) g/dL Albumin 4.6 (3.4-5.0) g/dL Globulin 3.5 g/dL Albumin/Globulin Ratio 1.3 Amylase 60 (25-115) U/L Lipase 18.0 (16.0-77.0) U/L Discharge Plan Discharge Chief Complaint: Abdominal Pain Clinical Impression: Nausea & vomiting, Abdominal pain Patient Disposition: Home, Self-Care Time of Disposition Decision: 08:58 Condition: Good Mode of Transportation: Private Vehicle Prescriptions / Home Meds: New dicyclomine 10 mg capsule 10 mg PO QID PRN (Reason: abdominal pain) Qty: 20 0RF ondansetron 4 mg tablet,disintegrating 4 mg PO Q6H PRN (Reason: nausea and vomiting) Qty: 20 0RF No Action gabapentin [Neurontin] 300 mg capsule 300 mg PO Q12H hydrocodone-acetaminophen 5-325 mg tablet 1 tab PO Q12H febuxostat 40 mg tablet 40 mg PO QDAY folic acid 1 mg tablet 1 mg PO QDAY methotrexate sodium 2.5 mg tablet 15 mg PO .q week Krystexxa 8 mg/50 mL solution 8 mg IV .q14 days prednisone 20 mg tablet 40 mg PO .COMPLEX Patient Comments: Start 01/01/2025 Rx Instructions: 40 mg orally 5 days then 20mg qd x 3 days then 10mg qd x 4 days; days 11-21 of therapy colchicine 0.6 mg tablet 0.6 mg PO QDAY clonidine HCl 0.1 mg tablet 0.1 mg PO BID amlodipine 10 mg tablet 10 mg PO QDAY Print Language: Congolese Instructions: Acute Nausea and Vomiting (ED), Abdominal Pain (ED) Referrals: LEYDI ACEVES [Primary Care Provider, Family Practice] - 1 week
[2025-02-17 07:31] LABS: Hematocrit 41.0 % (42.0-54.0); Hemoglobin 14.1 g/dL (14.0-18.0); Immature Granulocytes Abs Auto 0.03 10^3/uL (0.00-0.03); Immature Granulocytes Pct Auto 0.2 % (0.0-0.5); Lymphocytes Absolute Auto 2.2 10^3/uL (1.2-3.8); Mean Corpuscular HGB Conc 34.4 g/dL (29.9-35.2); Mean Corpuscular Hemoglobin 30.9 pg (25.9-34.0); Mean Corpuscular Volume 89.9 fL (80.0-94.0); Platelet Count 297 10^3/uL (150-450); Red Blood Count 4.56 10^6/uL (4.70-6.10); White Blood Count 13.0 10^3/uL (4.0-11.0)
[2025-02-17] MEDS: 0.9 % SODIUM CHLORIDE 1,000 ML 1000 ML IV (07:31)
[2025-02-17 07:47] LABS: Anion Gap 19.0; Blood Urea Nitrogen 13.0 mg/dL (7.0-18.0); Calcium 9.6 mg/dL (8.5-10.1); Carbon Dioxide 25.1 mmol/L (21.0-32.0); Chloride 102 mmol/L (98-107); Estimated GFR (African America >60 (>=60 mL/min/1.73m^2); Estimated GFR (Non-African Ame >60 (>=60 mL/min/1.73m^2); Glucose 122 mg/dL (74-106); Potassium 4.1 mmol/L (3.5-5.1); Sodium 142 mmol/L (136-145)
[2025-02-17 07:49] LABS: Alanine Aminotransferase 36 U/L (16-63); Albumin Globulin Ratio 1.3; Albumin Level 4.6 g/dL (3.4-5.0); Alkaline Phosphatase 85 U/L (46-116); Amylase 60 U/L (25-115); Aspartate Amino Transferase 25 U/L (15-37); Globulin 3.5 g/dL; Lipase 18.0 U/L (16.0-77.0); Total Protein 8.1 g/dL (6.4-8.2)
--- OUTSIDE RECORDS SUMMARY | 2025-02-17 07:49 | XMS_ITS | Clinical Summary ---
Author Organization [facility] Address [address] [place] [address] Care Team Providers Care Loaf Counter Name Role Phone Malcolm Cid MD Primary Care Provider [phone]- [phone] Allergies No known active allergies Medications MedicationSigDispense QuantityRefillsLast FilledStart DateEnd DateStatus amLODIPine (NORVASC) 5 mg tablet Take 1 tablet by mouth twice daily. 180 tablet ctive cloNIDine HCl (CATAPRES) 0.1 mg tablet Take 0.1 mg by mouth two times a day.03/11/2021ctive colchicine 0.6 mg tablet Indications:Idiopathic chronic gout of multiple sites with tophusTake 1 tablet by mouth once daily. 90 tablet 5Active methotrexate 2.5 mg tablet Indications:Chronic tophaceous goutTake 8 tablets by mouth one time a week. Hold if you have infection or fevers 100.4 F or higher. May resume once infection resolved. LABS EVERY 3 MONTHS 96 tablet 502/6Active predniSONE (DELTASONE) 10 mg tablet Take 30 mg qam x 3 days then 20 mg qam x 3d then 10 mg qam x 3d then 5 mg qam x 3d then stop 20 tablet 5Active Additional Information Patient not taking.Reason: Discontinued by Another Health Care Provider, Reported on 01/23/2025 cyclobenzaprine (FLEXERIL) 10 mg tablet Take 1 tablet by mouth three times a day as needed for pain. 20 tablet 5Active folic acid 1 mg tablet Indications:Chronic tophaceous goutTAKE 1 TABLET BY MOUTH EVERY DAY 90 tablet 5Active folic acid 1 mg tablet Indications:Chronic tophaceous goutTake 1 tablet by mouth once daily. 30 tablet 5104/12/2024Discontinued Active Problems ProblemNoted DateDiagnosed DateIdiopathic chronic gout of multiple sites with kauldx1203/20/2017Rheumatoid arthritis of multiple sites with negative rheumatoid ucuewo4205/10/2017Nicotine use disorder, F17.Gout04/26/2017Chronic pain 04/26/2017 Resolved Problems ProblemNoted DateDiagnosed DateResolved DateRheumatoid arthritis flare04/25/2017 05/10/2017 Encounters DateTypeDepartmentCare PzxoAjvpocbnnip95/11/2025Refill Rheumatology [address] [place] [address] Delmy Castro MD Refill Ncaptwr1102/05/2025 10:30 AM ESTInfusion Center Hematology/Oncology [address] [place] [address] [place] [address] 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); Chronic tophaceous gout01/23/2025 9:00 [facility] [address] [place] [address] [place] [address] Eric, Chair 7 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); Chronic tophaceous gout01/17/2025 Get Medical Advice Rheumatology [address] [place] [place] [address] Delmy Castro MD Follow up01/15/2025 1:40 PM ESTOffice Visit Rheumatology [address] [facility] [place] [address] Delmy Castro MD Chronic tophaceous gout (Primary Dx); Other secondary osteoarthritis of multiple sites; Encounter for long-term (current) use of medications; Idiopathic chronic gout of multiple sites with rpfaok9603/11/2024 Get Medical Advice Rheumatology [address] [facility] [place] [address] Delmy Castro MD Uamzpngu71/11/9948Ynjkxk15/28/2025 11:00 AM [facility] Hematology/Oncology [address] [place] [address] [place] [address] 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)12/25/2024 Refill Rheumatology [address] [place] [address] Delmy Castro MD Refill Hhnpwsf3312/25/20242230Ffmthl73/14/2025 11:00 AM [facility] Hematology/Oncology [address] [place] [address] [place] [address] 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)11/30/2024 Get Medical Advice Rheumatology [address] [place] [address] Delmy Castro MD Uric Acid Level11/28/2024 11:00 AM [facility] Hematology/Oncology [address] [place] [address] [place] [address] 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)from Last 3 Months Family History Medical HistoryRelationCommentsgoutMaternal Uncleseveral uncles with gout rheumatoid arthritisOtherfibromyalgiaSisterlupusSisterRelationStatusComments Maternal UncleOtherSister Social History Tobacco UseTypesPacks/DayYears UsedDateSmoking Tobacco: NeverSmokeless Tobacco: CurrentChew Tobacco Cessation:Ready to Q uit: Not Asked; Counseling Given: Not Answered PHQ-2AnswerDate RecordedPHQ-2 qbfyt4604Area Deprivation IndexAnswerDate RecordedNational Score (1-100), lower number is lower rplq165008/14/2022State Score (1-10), lower number is lower gmtr0103Data from: https://www.neighborhoodatlas.medicine.[facility].edu/. Last address used for [address]08/14/2022Sex and Gender InformationValueDate Recorded Sex Assigned at NpidkBrgj54/10/2020 12:50 PM EDTLegal LlgWdvh64/09/2015 3:20 PM ESTGender WjzakxmzNrzt27/10/2020 12:50 PM EDTSexual OrientationStraight 11/09/2019 12:50 PM EDT Last Filed Vital Signs Vital SignReadingTime TakenCommentsBlood Nlxexylc71/6302/05/2025 10:45 AM EST Afrph039702/05/2025 10:45 AM TKPPudvizssqhu34.5 ??C (97.7 ??F)02/05/2025 10:45 AM ESTRespiratory Eubk775804/08/2024 10:45 AM ESTOxygen Vtkzpaegaz96%02/05/2025 10:45 AM ESTInhaled Oxygen Concentration--Ryrikm73.8 kg (220 lb)01/15/2025 1:36 PM EST Hqvtbx016 cm (6' 2.02 )01/15/2025 1:36 PM ESTBody Mass Index28.23103/17/2024 1:36 PM EST Plan of Treatment DateTypeDepartmentCare Team (Latest Contact Info)Fgszbfoepzj02/23/2025 10:30 AM ESTInfusion Center Hematology/Oncology [address] [place] [address] [place] [address] XJJGPUJJO79/07/2025 10:30 AM ESTInfusion Center Hematology/Oncology [address] [place] [address] [place] [address] XIGNVRDDT87/ 10:30 AM ESTInfusion Center Hematology/Oncology [address] [place] [address] [place] [address] QAJLUPMYA27/ 11:20 AM EDTOffice Visit Rheumatology [address] [place], [place] [id number] [place] [address] [place] [address] 6 month follow up, ok to use slot per providerHealth MaintenanceDue DateLast DoneCommentsCovid-19 Vaccine (#1)1990Annual PCP Team Chronic Disease Visit 02/26/2008nxiety Sjuowsbve35/28/2008Depression Qmeasahvm79/28/2008HIV Screening 02/26/2008Hepatitis B Vaccine (1 of 3 - 19+ 3-dose series)2009Pneumococcal Vaccine (1 of 2 - PCV)2009Shingrix Vaccine (1 of 2)2009HPV Vaccine (1 - Risk 3-dose SCDM series)2017Influenza Vaccine (#1)2024 10/13/2018, 12/23/2017Serum Upycilzdpc51/08/870793/09/2024, 11/13/2024, 11/13/2024, Additional history existsDTaP,Tdap,Td Vaccine (6 - Td or Tdap) , 10/20/1993, 07/26/1991, Additional history existsHepatitis C OadlyoduaJtwuyfhjn35/02/2021 Procedures Procedure NamePriorityDate/TimeAssociated DiagnosisCommentsSEDIMENTATION RATE Tmysbcp1102/05/2025 10:51 AM EST Chronic tophaceous gout CREATININE YZRIogpcrd90/08/2025 10:51 AM EST Chronic tophaceous gout C-REACTIVE PROTEIN (CRP)Peauzch4202/05/2025 10:51 AM EST Chronic tophaceous gout CBC + QOALAtxaqmp44/08/2025 10:51 AM EST Chronic tophaceous gout ALBUMIN HPUIddwvcc82/08/2025 10:51 AM EST Chronic tophaceous gout ALT/XSBIUfohroa16/08/2025 10:51 AM EST Chronic tophaceous gout AST/SGOT JZKTbtsmyv25/08/2025 10:51 AM EST Chronic tophaceous gout URIC ACID WHVRLOtgzfhr69/08/2025 10:51 AM EST Chronic tophaceous gout URIC ACID UJOSEYqpesxe18/25/2025 9:19 AM EST Chronic tophaceous gout URIC ACID YMBYLZVGP23/10/2025 2:31 PM EST Idiopathic chronic gout of multiple sites with tophus URIC ACID YXQYNQglgtde77/27/2025 2:39 PM EDT Chronic tophaceous gout URIC ACID ZAGRBWosylze10/13/2025 3:01 PM EDT Chronic tophaceous gout URIC ACID YSOFWGukszwk01/30/2025 11:59 AM EDT Idiopathic chronic gout of multiple sites with tophus URIC ACID FYAPKHkfvxvy53/29/2025 2:33 PM EDT Chronic tophaceous gout *HEP C HIWhvgfcm49/02/2021 10:12 AM EST Encounter for long-term (current) use of medications from Last 3 Months or Most Recently Relevant to Health Maintenance Results * (ABNORMAL) URIC ACID (02/05/2025 10:51 AM EST) Only the most recent of7 resultswithin the time period is included. ComponentValueRef RangeTest MethodAnalysis TimePerformed AtPathologist Signature Uric Acid<0.2(L)4.0 - 8.1 mg/dL02/05/2025 11:19 AM ESTNOR[facility]COAHUR[facility] LABSpecimen (Source)Anatomical Location / LateralityCollection Method / VolumeCollection TimeReceived TimeBloodBLOOD SPECIMEN / UnknownVenipuncture / Tdkyfhl4702/05/2025 10:51 AM EST02/05/2025 10:52 AM EST Narrative Authorizing ProviderResult TypeResult StatusDelmy Castro MDLABORATORYFinal ResultPerforming OrganizationAddressCity/State/ZIP CodePhone Number [facility] [address] [place] [address] * (ABNORMAL) SEDIMENTATION RATE, WESTERGREN (02/05/2025 10:51 AM EST)Component ValueRef RangeTest MethodAnalysis TimePerformed AtPathologist SignatureSed Rate, Igsvtboxbc56(H)0 - 15 mm/hr02/05/2025 4:25 PM ESTCH[facility]ICOT[facility] LABSpecimen (Source)Anatomical Location / LateralityCollection Method / Volume Collection TimeReceived TimeBloodBLOOD SPECIMEN / UnknownVenipuncture / Mzrqeou8902/05/2025 10:51 AM EST02/05/2025 10:52 AM EST Narrative Authorizing ProviderResult TypeResult StatusDelmy Castro MDLABORATORYFinal ResultPerforming OrganizationAddressCity/State/ZIP CodePhone Number [facility] [address] [place] [address], * CREATININE BLD (02/05/2025 10:51 AM EST)ComponentValueRef RangeTest Method Analysis TimePerformed AtPathologist SignatureCreatinine1.030.73 - 1.22 mg/dL 02/05/2025 11:33 AM [facility] LABEstimated Glomerular Filtration Rate98>=60 mL/min/1.73m 02/05/2025 11:33 AM [facility] LABComment:Estimated Glomerular Filtration Rate (eGFR) [...] VolumeCollection TimeReceived TimeBloodBLOOD SPECIMEN / UnknownVenipuncture / Bzovoiy1402/05/2025 10:51 AM EST02/05/2025 10:52 AM EST Narrative Authorizing ProviderResult TypeResult StatusDelmy Castro MDLABORATORYFinal ResultPerforming OrganizationAddressCity/State/ZIP CodePhone Number [facility] [address] [place] [address] * (ABNORMAL) COMPLETE BLOOD COUNT AND DIFFERENTIAL (02/05/2025 10:51 AM EST) ComponentValueRef RangeTest MethodAnalysis TimePerformed AtPathologist SignatureWBC5.963.70 - 11.00 k/uL02/05/2025 10:58 AM [facility] LABRBC4.07(L)4.20 - 6.00 m/uL02/05/2025 10:58 AM [facility] EPEUmelnuzkmt97.5(L)13.0 - 17.0 g/dL02/05/2025 10:58 AM [facility] NCRMcmxdsakuo89.4(L)39.0 - 51.0 % 02/05/2025 10:58 AM [facility] GPTYMQ37.980.0 - 100.0 fL02/05/2025 10:58 AM [facility] ESZONS39.7 26.0 - 34.0 pg02/05/2025 10:58 AM [facility] LABMCHC 33.430.5 - 36.0 g/dL02/05/2025 10:58 AM [facility] LABRDW-CV12.711.5 - 15.0 %02/05/2025 10:58 AM [facility] LABPlatelet Soflx656421 - 400 k/uL02/05/2025 10:58 AM [facility] SOIHSZ71.59.0 - 12.7 fL02/05/2025 10:58 AM [facility] LABNeutrophils %67.2%02/05/2025 10:58 AM [facility] LABAbs Neut4.001.45 - 7.50 k/uL02/05/2025 10:58 AM [facility] LABLymphocytes %24.5%02/05/2025 10:58 AM [facility] LABAbs Lymph1.461.00 - 4.00 k/uL 02/05/2025 10:58 AM [facility] LABMonocytes %6.9% 02/05/2025 10:58 AM [facility] LABAbs Mono0.41<0.87 k/uL02/05/2025 10:58 AM [facility] LABEosinophils % 0.8%02/05/2025 10:58 AM [facility] LABAbs Eosin0.05 <0.46 k/uL02/05/2025 10:58 AM [facility] LAB Basophils %0.3%02/05/2025 10:58 AM [facility] LABAbs Baso<0.03<0.11 k/uL02/05/2025 10:58 AM [facility] LABImmature Granulocytes %0.3%02/05/2025 10:58 AM [facility] LABAbs Immature Gran<0.03<0.10 k/uL02/05/2025 10:[address] [facility] LABNRBC0.0/100 WBC02/05/2025 10:[address] [facility] LABAbsolute nRBC<0.01<0.01 k/uL02/05/2025 10:58 AM [facility] LABDiff WgbvEisn52/08/2025 10:58 AM [facility] LABSpecimen (Source)Anatomical Location / LateralityCollection Method / VolumeCollection TimeReceived Time BloodBLOOD SPECIMEN / UnknownVenipuncture / Mmwukhq7402/05/2025 10:51 AM EST 02/05/2025 10:52 AM EST Narrative Authorizing ProviderResult TypeResult StatusDelmy Castro MDLABORATORYFinal ResultPerforming OrganizationAddressCity/State/ZIP CodePhone Number [facility] [address] [place] [address] * C-REACTIVE PROTEIN (02/05/2025 10:51 AM EST)ComponentValueRef RangeTest Method Analysis TimePerformed AtPathologist SignatureCRP<0.3<0.9 mg/dL02/05/2025 7:02 PM ESTCHILLICOTHE HOSPITAL LABSpecimen (Source)Anatomical Location / LateralityCollection Method / VolumeCollection TimeReceived TimeBloodBLOOD SPECIMEN / UnknownVenipuncture / Wjzjqjn3802/05/2025 10:51 AM EST02/05/2025 10:52 AM EST Narrative Authorizing ProviderResult TypeResult StatusDelmy Castro MDLABORATORYFinal ResultPerforming OrganizationAddressCity/State/ZIP CodePhone Number [facility] [address] [place] [address], * ALBUMIN (02/05/2025 10:51 AM EST)ComponentValueRef RangeTest MethodAnalysis TimePerformed AtPathologist SignatureAlbumin4.13.9 - 4.9 g/dL02/05/2025 11:19 AM [facility] LABSpecimen (Source)Anatomical Location / LateralityCollection Method / VolumeCollection TimeReceived Time BloodBLOOD SPECIMEN / UnknownVenipuncture / Hfbdpxe2302/05/2025 10:51 AM EST 02/05/2025 10:52 AM EST Narrative Authorizing ProviderResult TypeResult StatusDelmy Castro MDLABORATORYFinal ResultPerforming OrganizationAddressCity/State/ZIP CodePhone Number [facility] [address] [place] [address] * (ABNORMAL) ASPARTATE AMINOTRANSFERASE/SGOT (02/05/2025 10:51 AM EST)Component ValueRef RangeTest MethodAnalysis TimePerformed AtPathologist UkzfpefscDYQ95 (L)14 - 40 U/L104/08/2024 11:19 AM [facility] Specimen (Source)Anatomical Location / LateralityCollection Method / Volume Collection TimeReceived TimeBloodBLOOD SPECIMEN / UnknownVenipuncture / Xbfyjei0202/05/2025 10:51 AM EST02/05/2025 10:52 AM EST Narrative Authorizing ProviderResult TypeResult StatusDelmy Castro MDLABORATORYFinal ResultPerforming OrganizationAddressCity/State/ZIP CodePhone Number [facility] [address] [place] [address] * ALANINE AMINOTRANSFERASE / SGPT (02/05/2025 10:51 AM EST)ComponentValueRef RangeTest MethodAnalysis TimePerformed AtPathologist YlzsectjoGQV1344 - 54 U/L 02/05/2025 11:19 AM ESTNOR[facility]CO[facility] LABSpecimen (Source) Anatomical Location / LateralityCollection Method / VolumeCollection Time Received TimeBloodBLOOD SPECIMEN / UnknownVenipuncture / Cfxowme7002/05/2025 10:51 AM EST02/05/2025 10:52 AM EST Narrative Authorizing ProviderResult TypeResult StatusDelmy Castro MDLABORATORYFinal ResultPerforming OrganizationAddressCity/State/ZIP CodePhone Number [facility] [address] [place] [address] * HEP REMOTE PANEL BL (04/02/2020 10:12 AM EST)ComponentValueRef RangeTest MethodAnalysis TimePerformed AtPathologist SignatureHep B Core Ab, Total OwxjflusPolifikk75/02/2021 7:[address] [facility] LaboratoriesHep C Antibody GLJqymssmwOihgipwl89/02/2021 7:[address] [facility] TZkPlMkjiolsyNsnotlvc11/02/2021 7:[address] [facility] [address] [facility] LaboratoriesHep B Surface Ab, FxgvKedggbdfRduqceym67/02/2021 7:[address] [facility] LaboratoriesComment:NEGATIVESpecimen (Source)Anatomical Location / Laterality Collection Method / VolumeCollection TimeReceived TimeBloodBLOOD SPECIMEN / Jpkorcb9804/02/2020 10:12 AM EST04/02/2020 10:14 AM EST Narrative Authorizing ProviderResult TypeResult StatusJoseph Olea APRN.CNPLABORATORY Final ResultPerforming OrganizationAddressCity/State/ZIP CodePhone Number [facility] [address] [place] [address] [facility] [address] [place] [address] from Last 3 Months or Most Recently Relevant to Health Maintenance Insurance Care Teams Team MemberRelationshipSpecialtyStart DateEnd Date Malcolm Cid MD PCP - GeneralFami Gytfxlts33/9/15
--- OUTSIDE RECORDS SUMMARY | 2025-02-17 07:49 | XMS_ITS | Patient Health Record ---
Author Organization [facility] Address [address] [place] [address] Care Team Providers Care Line Construction Superintendent Name Role Phone aMlcolm Cid MD Primary Care Provider Juan José Casey Unavailable [phone] Reason For Referral No Information Medications Medication [...] Notes Problem Contusion of right k nee (70440141875461349) Contusion of right knee, subsequent encounter (S80.01XD) ActiveconfirmedProblemEnthesopathy of knee (66805618)Knee bursitis, right (M70.51)ActiveconfirmedProblemGout (92972734)Acute gout of right knee, 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)ActiveconfirmedProblemContusion of knee (04068422) Contusion of knee, right (S80.01XA)InactiveconfirmedProblemInfected prepatellar bursa, right (M71.161)Inactiveconfirmed Plan Of Treatment No Information Insurance Providers Payer Name Payer Address Payer Phone Subscriber Number Group Number Insured Name Patient Relationship to Insured Coverage Start Date Coverage End Date Medicaid [employer] [place] [address] [place] [address] [id number] CSIATRU JAIMES Self - patient is the insured Medical (General) History Medical History History ICD Code Depression High Blood PressureAnxietySurgical History Surgery Date(Month/Year) Knee arthroscopy 01/2023 Shoulder surgery, left 03/2021
--- OUTSIDE RECORDS SUMMARY | 2025-02-17 07:50 | XMS_ITS | Encounter Summary ---
Author Organization [facility] Address [address] [place] [address] Care Team Providers Care Silk Snapper Name Role Phone Malcolm Cid MD Primary Care Provider [phone] Malcolm Cid MD Unavailable Merry Paz LPN Unavailable Encounter Details DateTypeDepartmentCare Team (Latest Contact Info)Wgyhgismzhy43/09/2025Travel Social History Tobacco UseTypesPacks/DayYears UsedDateSmoking Tobacco: NeverSmokeless Tobacco: CurrentChewAlcohol UseStandard Drinks/WeekCommentsYes6 (1 standard drink = 0.6 oz pure alcohol)2 or 3 drinks in one sitting. Maybe two or three times per w B1300 Health LiteracyAnswerDate RecordedHow often do you need to have someone help you when you read instructions, pamphlets, or other written material from your doctor or pharmacy?Never10/10/2023Humiliation, Afraid, Rape, and Kick questionnaireAnswerDate RecordedWithin the last year, have you been afraid of your partner or ex-partner?No09/14/2022Within the last year, have you been humiliated or emotionally abused in other ways by your partner or ex-partner?No 09/14/2022Within the last year, have you been kicked, [...] times a week10/10/2023How often do you attend rastafari or sabianist services?More than 4 times per year10/10/2023o you belong to any clubs or organizations such as rastafari groups, unions, fraternal or athletic groups, or school groups?Yes10/10/2023How often do you attend meetings of the clubs or organizations you belong to?More than 4 times per year10/10/2023 Are you , , , , never , or living with a partner?Ecildubvc20/11/2024UDIT-CAnswerDate RecordedQ1: How often do you have a [...] heating?Not very hard10/10/2023HQ-2AnswerDate RecordedPatient Health Questionnaire-2 Score0 02/06/2025[facility] [place] [facility] - Occupational Stress QuestionnaireAnswerDate [...] steady place to sleep or slept in miamielter (including now)?No09/14/2022Housing Stability Vital SignAnswerDate RecordedIn the last 12 months, was there a time when you were not able to pay the mortgage or rent on time?Yes10/10/2023In the past 12 months, how many times have you moved where you were living?t any time in the past 12 months, were you homeless or living in a correction (including now)?No 10/10/2023Sex and Gender InformationValueDate RecordedSex Assigned at BirthMale 09/08/2022 2:56 PM EDTLegal JavPtuv9805/13/2022 6:55 PM EDTGender IdentityMale 09/08/2022 2:56 PM EDTSexual BearniqyprsOlmqyqjt14/11/2023 2:56 PM EDTdocumented as of this encounter Plan of Treatment Not on file documented as of this encounter Visit Diagnoses Not on filedocumented in this encounter Care Teams Team MemberRelationshipSpecialtyStart DateEnd Date Malcolm Cid MD 112 [facility] [address] [place] [address] PCP - GeneralFamily Medicine07/29/22 Malcolm Cid MD [address] [address] [facility]/03/23 Merry Paz LPN [address] [address] 05/19/24documented as of this encounter
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
--- OUTSIDE RECORDS SUMMARY | 2025-02-17 07:50 | XMS_ITS | Encounter Summary ---
Author Organization [facility] Address [address] [place] [address] Care Team Providers Care Anger Control Counselor Name Role Phone Malcolm Cid MD Primary Care Provider [phone] Source Comments In the event this information is protected by the Federal Confidentiality of Alcohol and Drug AbusePatient Records regulations: The Federal rules restrict any use of the information to criminally investigate or prosecute any alcohol or drug abuse patient.[facility] Reason for Visit * ReasonCommentsRefill Request Encounter Details DateTypeDepartmentCare Team (Latest Contact Info)Hxrfdevoubd28/11/2025Refill Rheumatology [address] [place] [address] [place] [address] [place] [address] Refill Request Social History Tobacco UseTypesPacks/DayYears UsedDateSmoking Tobacco: NeverSmokeless Tobacco: CurrentChewPHQ-2AnswerDate RecordedPHQ-2 fzysp7964Area Deprivation Index AnswerDate RecordedNational Score (1-100), lower number is lower risk87 08/14/2022State Score (1-10), lower number is lower csmo3853Data from: https://www.neighborhoodatlas.[facility]/. Last address used for [address]08/14/2022Sex and Gender InformationValueDate Recorded Sex Assigned at RvwpaMdyq06/10/2020 12:50 PM EDTLegal PymEubh58/09/2015 3:20 PM ESTGender WvbmwgjzGsus65/10/2020 12:50 PM EDTSexual OrientationStraight 11/09/2019 12:50 PM EDTdocumented as of this encounter Functional Status * Are you deaf or do you have serious difficulty hearing?AnswerDate of SckveylqbkFmbzdbTi64/26/2018 6:15 PM Domi De León RN * Are you blind or do you have serious difficulty seeing, even when wearing glasses?AnswerDate of CpcqfvsnxvFnfzwfPr64/26/2018 6:15 PM Domi De León RN * Do you have serious difficulty walking or climbing stairs?AnswerDate of MklyngivdoUxcpxeIz04/26/2018 6:15 PM Domi De León RN * Do you have difficulty dressing or bathing?AnswerDate of AssessmentAuthorNo 04/26/2017 6:15 PM Domi De León RN * Because of a physical, mental, or emotional condition, do you have difficulty doing errands alone such as visiting a doctor's office or shopping?AnswerDate of ZfwecspnylBkhjwwPz31/26/2018 6:15 PM Domi De León RN documented as of this encounter Mental Status * Because of a physical, mental, or emotional condition, do you have serious difficulty concentrating, remembering, or making decisions?AnswerEntry Date JledkeCq16/26/2018 6:15 PM Domi De León RN documented in this encounter Miscellaneous Notes * Telephone Encounter - Delmy Castro MD - 02/09/2025 1:07 PM EST The following approved medication requests have been transmitted electronically. Requested Prescriptions Signed Prescriptions Disp Refills folic acid 1 mg tablet 90 tablet 3 Sig: TAKE 1 TABLET BY MOUTH EVERY DAY Authorizing Provider: MANDELMY HUNTER MD * Telephone Encounter - Harini CodyANGELINA - 02/08/2025 10:06 AM EST Images from the original note were not included. Most recent Rheumatology visit: 01/15/2025 (with Delmy Castro) Last Bone Density on file: None on file Rheumatology Care Team: None on file Recent Office Visits - This Specialty 01/15/2025 Chronic tophaceous gout Rheumatology Delmy Castro MD 10/03/2024 Chronic tophaceous gout Rheumatology Delmy Castro MD 01/04/2024 Chronic tophaceous gout Rheumatology Delmy Castro MD Upcoming Rheumatology Appointments - Next 365 Days Visit Type Date Time Department NATALIIA EST [facility]/16/2025 11:20 AM [facility] REJ CBC: Latest Ref Rng & Units 11/13/2024 02/05/2025 CBC WBC 3.70 - 11.00 k/uL 6.64 5.96 Hemoglobin 13.0 - 17.0 g/dL 14.2 12.5 Hematocrit 39.0 - 51.0 % 40.8 37.4 Platelet Count 150 - 400 k/uL 318 225 Abs Neut (ANC) 1.45 - 7.50 k/uL 3.71 4.00 Abs Lymph 1.00 - 4.00 k/uL 2.44 1.46 Vitamin D: None on file in the last 6 months LFT: None on file in the last 6 months Hepatic Function: Creatinine: Latest Ref Rng & Units 11/13/2024 02/05/2025 Creatinine Creatinine 0.73 - 1.22 mg/dL 1.29 1.03 ESR/CRP: Latest Ref Rng & Units 11/13/2024 02/05/2025 ESR, WSR WSR 0 - 15 mm/hr 2 17 Latest Ref Rng & Units 11/13/2024 02/05/2025 CRP CRP <0.9 mg/dL <0.3 <0.3 Uric Acid: Latest Ref Rng & Units 01/23/2025 02/05/2025 Uric Acid Uric Acid 4.0 - 8.1 mg/dL 0.3 <0.2 Open Standing (Multiple Instance) Lab Orders Remain Interval Expires Ordered Last Rel. URIC ACID [SQURIC] 3 Every other week 10/09/25 10/09/24 02/05/25 Auth. provider: Delmy Castro MD Assoc. diagnoses: Chronic tophaceous gout ASPARTATE AMINOTRANSFERASE/SGOT [SQAST] 3/5 Every 3 months 10/09/25 10/09/24 02/05/25 Auth. provider: Delmy Castro MD Assoc. diagnoses: Chronic tophaceous gout ALANINE AMINOTRANSFERASE / SGPT [SQALT] 3/5 Every 3 months 10/09/25 10/09/24 02/05/25 Auth. provider: Delmy Castro MD Assoc. diagnoses: Chronic tophaceous gout ALBUMIN [SQALB] 3/5 Every 3 months 10/09/25 10/09/24 02/05/25 Auth. provider: Delmy Castro MD Assoc. diagnoses: Chronic tophaceous gout COMPLETE BLOOD COUNT AND DIFFERENTIAL [SQCBCDIF] 3/5 Every 3 months 10/09/25 10/09/24 02/05/25 Auth. provider: Delmy Castro MD Assoc. diagnoses: Chronic tophaceous gout C-REACTIVE PROTEIN [SQCRP] 3/5 Every 3 months 10/09/25 10/09/24 02/05/25 Auth. provider: Delmy Castro MD Assoc. diagnoses: Chronic tophaceous gout CREATININE BLD [SQCRET] 3/5 Every 3 months 10/09/25 10/09/24 02/05/25 Auth. provider: Delmy Castro MD Assoc. diagnoses: Chronic tophaceous gout SEDIMENTATION RATE, WESTERGREN [SQWSR] 3/5 Every 3 months 10/09/25 10/09/24 02/05/25 Auth. provider: Delmy Castro MD Assoc. diagnoses: Chronic tophaceous gout Open Future (Single Instance) Lab Orders None documented in this encounter Plan of Treatment DateTypeDepartmentCare Team (Latest Contact Info)Ftujibdnraz20/23/2025 10:30 AM [facility] Hematology/Oncology [address] [place] [address] IATNGJGEG85/07/2025 10:30 AM [facility] Hematology/Oncology [address] [place] [address] [place] [address] WEQPYOHBB46/20/2026 10:30 AM [facility] Hematology/Oncology [address] [place] [address] [place] [address] PNFSMPUKQ71/ 11:20 AM EDTOffice Visit Rheumatology [address] [place] [address] [place] [address] [place] [address] 6 month follow up, ok to use slot per providerdocumented as of this encounter Visit Diagnoses Diagnosis 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
--- OUTSIDE RECORDS SUMMARY | 2025-02-17 07:50 | XMS_ITS | Clinical Summary ---
Author Organization [facility] Address [address] [place] [address], [address] [place] [address] Care Team Providers Care Customer Relations Consultant Name Role Phone Malcolm Cid MD Primary Care Provider [phone] Allergies No known active allergies Medications MedicationSigDispense [...] by mouth dailyActive Active Problems ProblemNoted DateDiagnosed UabwDzfrlmljkbgxq09/28/7609Lbuuwo22/28/2015 Yjlaqmrffpgo65/28/2015GoutDDD (degenerative disc disease), cervicalVasovagal syncope Resolved Problems ProblemNoted DateDiagnosed DateResolved AblwZjjkgzu87 Family History Medical HistoryRelationNameCommentsCOPDFatherCOPDMotherRelationNameStatus CommentsFatherAliveMotherAlive Social History Tobacco UseTypesPacks/DayYears UsedDateSmoking Tobacco: NeverSmokeless Tobacco: CurrentChewAlcohol UseStandard Drinks/WeekCommentsYes0 (1 standard drink = 0.6 oz pure alcohol)rarely; last drink was 2 glassses of wine Cas DaySex and Gender InformationValueDate RecordedSex Assigned at BirthNot on fileLegal Sex Male02/24/2015 6:11 PM ESTGender IdentityNot on fileSexual OrientationNot on file Last Filed Vital Signs Vital SignReadingTime TakenCommentsBlood Ygabbnmr337/85007/12/2018 8:22 PM EDT Mwrcn33343/14/2019 8:22 PM DHTUeguflobpyv14.5 ??C (97.7 ??F)07/12/2018 8:22 PM EDTRespiratory Kamk612707/12/2018 8:22 PM EDTOxygen Hupcvjmbis49%07/12/2018 8:22 PM EDTInhaled Oxygen Concentration--Qucefy20.7 kg (200 lb)07/12/2018 8:22 PM EDT Zxepxn349.5 cm (6' 3 )07/12/2018 8:22 PM EDTBody Mass Xmqve5203/14/2019 8:22 PM EDT Plan of Treatment Health MaintenanceDue DateLast DoneCommentsCOVID-19 Vaccine (#1)1995 Depression Pnnsfm6502/25/2002Varicella vaccine (1 of 2 - 13+ 2-dose series) 2003HIV nkmduc5502/25/2005Hepatitis C psikxh1502/26/2008DTaP/Tdap/Td vaccine (1 - Tdap)2009Hepatitis B vaccine (1 [...] TypeRelation to PatientDate of BirthPhone Billing AddressWorkers ZymmIcst1990 (Home) [address] [phone] Advance Directives * Full Code (Latest Code Status on File) Date ActivatedDate InactivatedComments04/26/2015 11:58 PM2 7:53 PM * Full Code Date ActivatedDate ClcbgkyjnifSfekzqcb54/27/2015 8:57 PM02/28/2015 4:48 PM Care Teams Team MemberRelationshipSpecialtyStart DateEnd Date Malcolm Cid MD PCP - Aashgdu82/27/15
== END 2025-02-17 09:16 | disposition home or self-care (01) ==
PROVIDERS: Emergency Provider Emergency Medicine; PCP Family Medicine
DX: R10.9 Unspecified abdominal pain (principal); R11.2 Nausea with vomiting, unspecified; F17.220 Nicotine dependence, chewing tobacco, uncomplicated
CPT/HCPCS: 36415; 80048; 80076; 82150; 83690; 85025; 87045; 87046; 87427; 96361; 96374; 96376; 99284; J2405